=== PATIENT | female | born 1970 | race Asian ===

== ENCOUNTER → 2017-10-11 20:56 | Outpatient (CLI) | payer MEDICARE, MEDICAID, SELFPAY | PROVIDERS: Family Provider Family Medicine Geriatric Medicine; PCP Family Medicine Geriatric Medicine; Visit Provider Family Medicine Geriatric Medicine | DX: R19.7 Diarrhea, unspecified (principal) | CPT/HCPCS: 87493 ==

== ENCOUNTER 2017-10-18 07:49 | Day surgery (SDC) | payer MEDICARE, MEDICAID, SELFPAY ==
[2017-09-27 13:06] VITALS: BMI 26.1
[2017-09-28 14:15] VITALS: BP 120/60
[2017-10-01 08:00] VITALS: BP 149/92
[2017-10-03 14:49] VITALS: BP 105/69
[2017-10-18 08:10] VITALS: BP 121/79; PULSE 87; RESP 18; TEMP 36.7; O2SAT 100; BMI 25.2
[2017-10-18 08:11] LABS: Internal QC Validated? YES +Cl - CLEAR BKGD
[2017-10-18 08:14] LABS: Pregnancy, Urine Negative Negative
[2017-10-18 08:31] LABS: Bedside Glucose 110 mg/dL (70-110)
--- NOTE | 2017-10-18 09:20 | RAD_ITS ---
PROCEDURE: Cervical facet joint block. DATE OF EXAMINATION: October 18, 2017. INDICATION: Female, 47 years old. FLUOROSCOPY TIME (if supplied): (0:09) minutes/seconds Intraoperative fluoroscopic imaging provided for left C4-C7 facet joint block. RAD/Cerv Spine 2 or 3 Views IMPRESSION: Intraoperative fluoroscopic imaging provided for left C4-C7 facet joint block. Electronically Signed: Jonathan Garcia MD at 13:02 EST Tel [phone], Service support ,
[2017-10-18] MEDS: Bupivacaine 0.25% 30 ML Vial (09:33)
[2017-10-18] MEDS: MethylPREDNISolone Acetate 80 MG/ML Vial (09:34)
[2017-10-18] MEDS: Bacitracin 500 UNITS/GM PACKET (09:34)
[2017-10-18 09:41] VITALS: BP 109/64; BP 121/79; PULSE 82; RESP 16; TEMP 36.7; O2SAT 98
[2017-10-18 09:45] VITALS: BP 113/73; BP 121/79; PULSE 82; RESP 16; O2SAT 100
[2017-10-18 09:50] VITALS: BP 113/73; BP 121/79; PULSE 85; RESP 16; O2SAT 100
[2017-10-18 09:55] VITALS: BP 104/59; BP 121/79; PULSE 85; RESP 16; TEMP 36.2; O2SAT 100
[2017-10-18 10:12] VITALS: BP 121/79
--- NOTE | 2017-10-18 12:42 | OP.PCM_ITS ---
Problem List (1) Cervical spondylosis Status: Chronic (2) Degenerative disc disease, cervical Status: Chronic Report of Operation Date of Procedure: 10/18/17 Pre-Operative Diagnosis: Cervical spondylosis, cervical degenerative disc disease, cervical facet arthropathy Post-Operative Diagnosis: Cervical spondylosis, cervical degenerative disc disease, cervical facet arthropathy Surgery/Procedure Performed:: Left-sided cervical facet steroid injection C4, C5 , C6, C7 Description of Surgical Findings:: PROCEDURE: Left-sided cervical facet steroid injection C4, C5, C6, C7 PREOPERATIVE DIAGNOSES: Cervical spondylosis, cervical degenerative disc disease, and cervical facet arthropathy POSTOPERATIVE DIAGNOSES: Cervical spondylosis, cervical degenerative disc disease, and cervical facet arthropathy ANESTHESIA: MAC COMPLICATIONS: None BLOOD LOSS: Minimal PROCEDURE IN DETAIL: History and physical today was reviewed. Risks and benefits of the procedure were explained. The patient understood, agreed to our procedure, and informed consent was obtained. IV inserted per routine protocol. The patient was taken to the operating room, placed in a prone position with a pillow positioned underneath the chest. The neck area was prepped and draped in a sterile fashion using iodine x3. Under fluoroscopy guidance, on AP view, C4 through C7 vertebral bodies were visualized. . Under direct visualization with fluoroscopy at approximately 15-degree angle, starting on the left C4, ending on the left C7, passing through the C5-C6 using a 25-gauge 3-1/2 inch spinal needle, the needle was passed through the skin. The tip of the needle was maneuvered and directed towards the apophyseal junction of each corresponding vertebra. Once the tip of the needle was at the vicinity of the medial branch and in contact with the bone, the needle was redirected more lateral towards the medial branch. Once in contact with the medial branch, the stylet of each needle was then removed. After negative aspiration of blood with CSF and confirmation of AP as well as oblique view, a total of 3 mL of preservative- free 0.25% Marcaine with 80 mg Depo-Medrol was injected in divided doses between those 4 levels. The needles were then removed intact. The patient experienced no signs or symptoms of intrathecal, intravascular injection. The patient experienced no paraesthesia. The procedure was completed without any apparent difficulty, any complication. The patient appeared to tolerate well. ASSESSMENT AND PLAN: This is a 47-year-old female with cervical spondylosis, cervical degenerative disc disease, and cervical facet arthropathy, status post left-sided cervical facet steroid injection C4 through C7. The patient will continue her current medications. The patient will follow up in approximately 2 weeks fo reevaluation.
== END 2017-10-18 10:31 | disposition home or self-care (01) ==
LOC: SDC 07:50 → AC 07:51
PROVIDERS: Anesthesiology; Family Provider Family Medicine Geriatric Medicine; PCP Family Medicine Geriatric Medicine; Visit Provider Anesthesiology Pain Medicine
PROC: 3E0S3BZ Introduction of Anesthetic Agent into Epidural Space, Percutaneous Approach (ICD-10-PCS; CPT 62320; principal; 2017-10-18 09:15)
DX: M47.812 Spondylosis without myelopathy or radiculopathy, cervical region (principal); M50.30 Other cervical disc degeneration, unspecified cervical region; M51.36 Other intervertebral disc degeneration, lumbar region; M32.10 Systemic lupus erythematosus, organ or system involvement unspecified; G89.0 Central pain syndrome; M16.9 Osteoarthritis of hip, unspecified; M19.019 Primary osteoarthritis, unspecified shoulder; M79.7 Fibromyalgia; Z79.891 Long term (current) use of opiate analgesic; N18.6 End stage renal disease; I12.0 Hypertensive chronic kidney disease with stage 5 chronic kidney disease or end stage renal disease; Z99.2 Dependence on renal dialysis; Z79.4 Long term (current) use of insulin
CPT/HCPCS: 64479; 64480 ×3; 64490; 72040; 81025; 82962; J7030; J7120; A4216

== ENCOUNTER → 2017-11-06 14:26 | Outpatient (CLI) | payer MEDICARE, MEDICAID, SELFPAY ==
[2017-11-08 11:24] LABS: HEPATITIS B SURFACE AG Negative (Negative)
== END ==
PROVIDERS: Visit Provider Internal Medicine Nephrology
DX: N18.6 End stage renal disease (principal)
CPT/HCPCS: 87340

== ENCOUNTER → 2017-11-19 10:03 | Outpatient (CLI) | payer MEDICARE, MEDICAID, SELFPAY ==
[2017-11-19 11:45] LABS: D-Dimer Quantitative (DVT/PE) 1.95 FEU/ug/m (0.27-0.49)
[2017-11-20 09:08] LABS: Complement C3 99 mg/dL (82-167)
[2017-11-20 10:52] LABS: Immunoglobulin G 1173 mg/dL (700-1600)
== END ==
PROVIDERS: Family Provider Family Medicine Geriatric Medicine; PCP Family Medicine Geriatric Medicine
DX: M32.14 Glomerular disease in systemic lupus erythematosus (principal)
CPT/HCPCS: 36591; 82784; 85379; 86160; A4216

== ENCOUNTER → 2017-11-30 14:49 | Outpatient (CLI) | payer MEDICARE, MEDICAID, SELFPAY ==
[2017-11-30 15:57] LABS: Absolute Lymphocyte Count 0.76 X10^3/ul (0.83-4.51); Basophil# 0.01 X10^3/uL; Basophil% 0.1 % (0-1); Eosinophil# 0.04 X10^3/uL; Eosinophils% 0.4 % (0-5); Hematocrit 38.6 % (37-47); Lymphocyte # 0.76 X10^3/ul (4.0); Lymphocyte % 8.1 % (19-41); Mean Corp Hgb Conc 31.1 g/gl (32-36); Mean Corpuscular Hgb 31.1 pg (27.0-32.0); Mean Platelet Vol. 10.3 fl (6.2-12.0); Monocyte% 5.3 % (0-10); Neutrophil # 7.98 X10^3/uL (2.7-7.7); Neutrophil % 85.4 % (47-70); Platelet Count 185 K/mm3 (150-450); RBC Distribution Width CV 15.8 % (11.6-14.6); RBC Distribution Width SD 55.5 fl (35.1-43.9); Red Blood Count 3.86 M/mm3 (4.2-5.4); White Blood Count 9.4 K/mm3 (4.4-11.0)
[2017-11-30 15:59] LABS: POSITIVE COUNT NO; POSITIVE DIFFERENTIAL NO; POSITIVE MORPHOLOGY NO
[2017-11-30 16:19] LABS: ALB/GLOB Ratio 0.7 RATIO (0.9-2.4); AST(SGOT) 28 U/L (15-37); Alanine Aminotransfer ALT/SGPT 16 U/L (13-56); Albumin, Serum 3.1 g/dL (3.2-5.0); Alkaline Phosphatase 78 U/L (45-117); Anion Gap 11 (5-15); BUN 67 mg/dL (7-18); BUN/Creat Ratio 10.2 RATIO (10-20); Calcium,Total 8.7 mg/dL (8.5-10.1); Chloride 95 mmol/L (98-107); Creatinine, Serum 6.57 mg/dL (0.55-1.02); EST Glomerular Filtration Rate 7 mL/min (>60); Est Glom Filt Rate - Afr Amer 9 mL/min (>60); Globulin 4.6 g/dL (2.2-4.2); Glucose 170 mg/dL (74-106); Potassium 4.3 mmol/L (3.5-5.1); Protein, Total 7.7 g/dL (6.4-8.2); Sodium Level 133 mmol/L (136-145); Thyroid Stim Hormone (TSH) 1.19 uIU/mL (0.358-3.74)
== END ==
PROVIDERS: Family Provider Family Medicine Geriatric Medicine; PCP Family Medicine Geriatric Medicine; Visit Provider Family Medicine Geriatric Medicine
DX: E11.9 Type 2 diabetes mellitus without complications (principal); I10 Essential (primary) hypertension
CPT/HCPCS: 36415; 80053; 84443; 85025

== ENCOUNTER → 2017-12-09 14:37 | Outpatient (CLI) | payer MEDICARE, MEDICAID, SELFPAY ==
--- NOTE | 2017-12-09 14:39 | VDUE_ITS ---
Version 2 Reason For Study: Assess IJV for possible dialysis catheter placement Right Proximal IJV demonstrates normal color flow and doppler signal Prox IJV - .34 x .35 cm Mid IJV - .60 x .69 cm Dist IJV - .86 x .91 cm Subclavian demonstrates normal color flow and doppler signal and and measures 1.3 x 1.3 cm. < Interpretation Summary Patent and compressible right internal jugular vein. Normal flow right subclavian vein Occluded left forearm AV graft Patent left forearm cephalic vein--occluded in the upper arm Patent and generous diameter left upper arm basilic vein.. Ordering Physician: Rigo Valverde Referring Physician: Rigo Valverde Performed By: Abigail Ventura RVT
--- NOTE | 2017-12-09 14:39 | VDUE_ITS ---
Reason For Study: Complications of access device Left Arm Left Cephalic Vein at the wrist measures .27 x .30 cm. Left Cephalic Vein in the forearm measures .29 x .32 cm. Left Cephalic Vein below antecub measures .36 x .36 cm. Cephalic vein occluded in upper arm. Basilic vein at origin measures .43 x .43 cm. Basilic vein at bicep measures .47 x .45 cm. Basilic vein above antecub measures .40 x .37 cm. Brachial artery - .52 x .53 cm with a velocity of 68.4 cm/s Radial artery - .27 x .27 cm with a velocity of 53.4 cm/s. < Interpretation Summary Occluded left forearm AV graft Occluded left upper arm cephalic vein Compressible left forearm cephalic vein Patent and good diameter left upper arm basilic vein. Ordering Physician: Rigo Valverde Referring Physician: Rigo Valverde Performed By: Abigail Ventura RVT
== END ==
PROVIDERS: Family Provider Family Medicine Geriatric Medicine; PCP Family Medicine Geriatric Medicine; Visit Provider Surgery
DX: I82.612 Acute embolism and thrombosis of superficial veins of left upper extremity (principal); T82.590A Other mechanical complication of surgically created arteriovenous fistula, initial encounter; T82.898A Other specified complication of vascular prosthetic devices, implants and grafts, initial encounter
CPT/HCPCS: 93971

== ENCOUNTER 2017-12-10 09:07 | Day surgery (SDC) | payer MEDICARE, MEDICAID, SELFPAY ==
[2017-12-10] VITALS (11 sets, daily range): BP systolic 107–156; BP diastolic 85–100; PULSE 81–99; RESP 14–18; TEMP 36.3–36.7; O2SAT 96–100; BMI 27.1
[2017-12-10 10:00] LABS: Bedside Glucose 104 mg/dL (70-110)
[2017-12-10 11:17] LABS: Internal QC Validated? YES +Cl - CLEAR BKGD; Pregnancy, Urine Negative Negative
[2017-12-10] MEDS: Cefazolin 2 GM in 0.9% Normal Saline 100 ML IV (12:34)
--- NOTE | 2017-12-10 12:45 | PCM.DC.FIST ---
Discharge Diet: Renal Diet Discharge Activity: May Not Drive, May Not Shower Lifting Restrictions: 5 pounds Keep extremity elevated above heart level: - - Keep arm elevated above the heart level for 3 days. Call your doctor if your incision/area has: Continuous Slow Oozing, Sudden Increased Bleeding - apply pressure and call your doctor., Increased Pain/ Swelling, Increased Redness, Foul Smelling Discharge Call your doctor if you observe: Fever of 101 or Higher Suture Line Care: Avoid Pulling/Pushing, Avoid Pinching/Bending Additional Dressing/Incision Instructions:: Please elevate your left arm for comfort. Exercise the left hand with a stress ball to mature the fistula. Keep the right chest catheters clean and dry Allergies/Adverse Reactions: Allergies LONG Inhibitors Allergy (Verified 12/09/17 09:23) Angioedema lisinopril Allergy (Verified 12/09/17 09:23) Angioedema Sulfa (Sulfonamide Antibiotics) Allergy (Verified 12/09/17 09:23) Rash sulfamethoxazole [From Bactrim] Allergy (Verified 12/09/17 09:23) Rash trimethoprim [From Bactrim] Allergy (Verified 12/09/17 09:23) Rash Medications to take at Discharge Atorvastatin Calcium [Lipitor] 20 mg PO QHS 10/01/16 Duloxetine Hcl [Cymbalta] 120 mg PO DAILY 10/01/16 Furosemide [Lasix] 40 mg PO BIDLX 10/01/16 Hydroxychloroquine [Plaquenil] 200 mg PO BIDCM 10/01/16 Linagliptin [Tradjenta] 5 mg PO DAILY 10/01/16 Montelukast [Singulair] 10 mg PO QHS 10/01/16 Acyclovir [Zovirax] 400 mg PO TID PRN 10/26/16 Ergocalciferol [Vitamin D] 1.25 cap PO QMONTH 01/21/17 Amlactin Ultra Body Cream 1 applic TOPICAL DAILY PRN 02/17/17 Cevimeline HCl [Evoxac] 30 mg PO TID 02/17/17 Dextroamphetamine/Amphetamine [Adderall Xr 10 mg Capsule] 15 mg PO BID 07/22/17 Estradiol [Estrace] 1 mg PO QHS 09/27/17 Metoprolol Succinate [Toprol Xl] 50 mg PO BID 09/27/17 Pregabalin [Lyrica] 50 mg PO BID 09/27/17 predniSONE tablet 10 mg PO DAILYCM 09/27/17 omeprazole 40 mg capsule,delayed release 40 mg PO QDAY 12/08/17 paroxetine 10 mg tablet 10 mg PO QDAY 12/08/17 Calcium Acetate [Phoslo Gel Cap] 2,001 mg PO TIDCM 12/09/17 Lactobacillus Acidophilus [Acidophilus] 1 each PO TID 12/09/17 Sevelamer Carbonate 2,400 mg PO TID 12/09/17 Triphrocaps 1 mg PO DAILY 12/09/17 Vancomcyin 125 MG/ 5 ML Susp [Vancomycin 125mg/5mL Susp] 125 mg PO Q6 12/09/17 Hydrocodone Bitart/Apap 5-325 [[place] 5MG-325MG] 1 tablet PO Q6H PRN PRN 3 Days #10 tablet 12/10/17 The following prescriptions were given: Hydrocodone Bitart/Apap 5-325 [[place] 5MG-325MG] 1 tablet PO Q6H PRN PRN 3 Days #10 tablet PRN Reason: Pain Primary Care Physician: Mitchell Bowen Chi, MD [Primary Care Provider] - Please Follow Up With: Rigo Valverde MD - [phone] When: Call to make an appointment for surgical follow up in 10 days
--- NOTE | 2017-12-10 12:48 | DCINST_ITS ---
Discharge Diet: Renal Diet Discharge Activity: May Not Drive, May Not Shower Lifting Restrictions: 5 pounds Keep extremity elevated above heart level: - - Keep arm elevated above the heart level for 3 days. Call your doctor if your incision/area has: Continuous Slow Oozing, Sudden Increased Bleeding - apply pressure and call your doctor., Increased Pain/ Swelling, Increased Redness, Foul Smelling Discharge Call your doctor if you observe: Fever of 101 or Higher Suture Line Care: Avoid Pulling/Pushing, Avoid Pinching/Bending Additional Dressing/Incision Instructions:: Please elevate your left arm for comfort. Exercise the left hand with a stress ball to mature the fistula. Keep the right chest catheters clean and dry Allergies/Adverse Reactions: Allergies LONG Inhibitors Allergy (Verified 12/09/17 09:23) Angioedema lisinopril Allergy (Verified 12/09/17 09:23) Angioedema Sulfa (Sulfonamide Antibiotics) Allergy (Verified 12/09/17 09:23) Rash sulfamethoxazole [From Bactrim] Allergy (Verified 12/09/17 09:23) Rash trimethoprim [From Bactrim] Allergy (Verified 12/09/17 09:23) Rash Medications to take at Discharge Atorvastatin Calcium [Lipitor] 20 mg PO QHS 10/01/16 Duloxetine Hcl [Cymbalta] 120 mg PO DAILY 10/01/16 Furosemide [Lasix] 40 mg PO BIDLX 10/01/16 Hydroxychloroquine [Plaquenil] 200 mg PO BIDCM 10/01/16 Linagliptin [Tradjenta] 5 mg PO DAILY 10/01/16 Montelukast [Singulair] 10 mg PO QHS 10/01/16 Acyclovir [Zovirax] 400 mg PO TID PRN 10/26/16 Ergocalciferol [Vitamin D] 1.25 cap PO QMONTH 01/21/17 Amlactin Ultra Body Cream 1 applic TOPICAL DAILY PRN 02/17/17 Cevimeline HCl [Evoxac] 30 mg PO TID 02/17/17 Dextroamphetamine/Amphetamine [Adderall Xr 10 mg Capsule] 15 mg PO BID 07/22/17 Estradiol [Estrace] 1 mg PO QHS 09/27/17 Metoprolol Succinate [Toprol Xl] 50 mg PO BID 09/27/17 Pregabalin [Lyrica] 50 mg PO BID 09/27/17 predniSONE tablet 10 mg PO DAILYCM 09/27/17 omeprazole 40 mg capsule,delayed release 40 mg PO QDAY 12/08/17 paroxetine 10 mg tablet 10 mg PO QDAY 12/08/17 Calcium Acetate [Phoslo Gel Cap] 2,001 mg PO TIDCM 12/09/17 Lactobacillus Acidophilus [Acidophilus] 1 each PO TID 12/09/17 Sevelamer Carbonate 2,400 mg PO TID 12/09/17 Triphrocaps 1 mg PO DAILY 12/09/17 Vancomcyin 125 MG/ 5 ML Susp [Vancomycin 125mg/5mL Susp] 125 mg PO Q6 12/09/17 Hydrocodone Bitart/Apap 5-325 [[place] 5MG-325MG] 1 tablet PO Q6H PRN PRN 3 Days # 10 tablet 12/10/17 The following prescriptions were given: Hydrocodone Bitart/Apap 5-325 [[place] 5MG-325MG] 1 tablet PO Q6H PRN PRN 3 Days # 10 tablet PRN Reason: Pain Primary Care Physician: Mitchell Bowen Chi, MD [Primary Care Provider] - Please Follow Up With: Rigo Valverde MD - [phone] When: Call to make an appointment for surgical follow up in 10 days
[2017-12-10] MEDS: Bupivacaine 0.25% 30 ML Vial (13:45)
--- NOTE | 2017-12-10 16:14 | PCM.OPRPT ---
Problem List (1) Problem with dialysis access Status: Acute Qualifiers: Encounter type: initial encounter Qualified Code(s): T82.898A - Other specified complication of vascular prosthetic devices, implants and grafts, initial encounter Report of Operation Date of Procedure: 12/10/17 Pre-Operative Diagnosis: Difficulties with dialysis access/thrombosed left forearm radial to antecubital PTFE AV graft Post-Operative Diagnosis: Same Surgery/Procedure Performed:: Right external jugular tunneled 19 cm pre-curved palindrome dialysis catheter placement. Transposition left upper arm basilic vein to brachial artery arteriovenous fistula creation Description of Surgical Findings:: Timeout and informed consent was obtained. 47-year-old female was taken to the operating. She underwent monitored anesthesia care local anesthetic. Ancef 2 g given intravenous preoperatively. The right neck and chest were sterilely prepped and draped. Ultrasound was used to identify the right internal jugular vein which was extraordinarily diminutive in size. The preoperative duplex imaging suggested patency however in actuality this vein was very diminutive. I did attempt access with using 0.5% lidocaine and then a micropuncture needle. I could not get the micropuncture wire to advance. Further inspection of the neck revealed that the external jugular vein appear to be patent. I then utilized 0.5% a cane as a local. I used ultrasound to guide a micropuncture needle into the vein. Micropuncture wire. Micropuncture sheath. I then instilled local down upon the chest wall. I tunneled the 19 cm pre-curved palindrome catheter from the chest to the neck. I placed a J-wire through the micropuncture sheath. Serial dilatation was performed. Sheath dilator was inserted. The dilator and wire removed. The catheter was advanced through the sheath. The sheath was split. The catheter was in good position based upon fluoroscopy. The neck site was closed with interrupted 4-0 Vicryl subdermal stitch. The catheter was secured skin with interrupted 3-0 nylon. A silver impregnated dressing was applied followed by Telfa. Telfa OpSite was placed in the neck. Attention was now drawn to the left extremity which was sterilely prepped and draped. It is of note that throughout both procedures a total 24 cc of 0.5% lidocaine and 25 cc of 1% lidocaine mixed 50-50 with a 0.25% Marcaine was used as local anesthetic. Ultrasound was used to identify the left upper extremity basilic vein. Then a longitudinal incision was made in the left medial upper arm tedious sharp and blunt dissection was used to dissect free the basilic vein. Side branches were secured with 4-0 Vicryl ligatures and hemoclips. The vein was completely freed it was irrigated was noted to be of nice diameter. It was measured the length and a curvilinear pattern was selected. The brachial artery was then dissected free. A tunneler was placed the vein was ligated distally with hemoclips at a spatulation point. The vein was then placed beneath the tunnel taking great care to assure no curvature. It irrigated was nicely patent. The patient received 7000 units of heparin. Peripheral vascular clamps were placed on the brachial artery and 11 blade was used to make an arteriotomy extended with Ahmadi scissors. A end-to-side anastomosis was created with a running 7-0 Prolene. At the completion there is good flow. Inspection of the hand however was of concern and that was markedly diminished Doppler signal of the radial artery. The fistula appeared to have an extraordinarily high flow. So then I used a centimeter by 1 cm wide piece of bovine pericardium graft. I shortened the width to about 6 mm. I used that as a cuff at the proximal portion of the fistula. Using interrupted sutures of 6-0 Prolene I then serially snugged the cuff until I was able to get a Doppler signal back at the wrist. The hand appeared to have now adequate capillary refill. The fascia also appeared to have good flow remaining. The wound was closed with interrupted 3-0 Vicryl subdermal stitches and a running septic or 4 Monocryl. Steri-Strips Telfa soft roll Juan wrap applied. Sponge instrument and needle counts were reported to the surgeon to be correct. Blood loss for both procedures was 300 cc. She tolerated procedure well was taken to recovery in satisfactory condition no apparent complication stat portable chest x-ray is pending. Rigo Valverde M.D., F.A.C.S. Type of Anesthesia:: Local MAC Anesthesiologist: Alexys Ramirez
--- NOTE | 2017-12-10 16:30 | RAD_ITS ---
STUDY: X-RAY CHEST REASON FOR EXAM: Female, 47 years old. Insertion of hemodialysis catheter. TECHNIQUE: Single AP portable view of the chest. COMPARISON: Prior chest radiograph of September 27, 2017 FINDINGS: Right hemodialysis catheter ends in the proximal superior vena cava. A left subclavian central line ends in the distal superior vena cava. The lungs are clear and expanded. Negative for pneumothorax. Negative for pleural effusion. Normal size heart. Normal mediastinum and malroie. Normal visualized pulmonary arteries. Normal visualized aortic arch and descending thoracic aorta. Normal visualized thoracic spine. Normal visualized ribs, clavicles, and shoulders. There is no demonstrated abnormality of the visualized soft tissue structures of the upper abdomen. RAD/Chest 1 View (Portable) IMPRESSION: Right hemodialysis catheter ends in the proximal superior vena cava without complication of line placement. Left subclavian venous catheter ends in the distal superior vena cava. No acute cardiopulmonary findings. Electronically Signed: Jayda Arreguin MD at 16:53 EDT , Service support ,
== END 2017-12-10 17:50 | disposition home or self-care (01) ==
LOC: SDC 09:08 → AC 09:09
PROVIDERS: Anesthesiology; Family Provider Family Medicine Geriatric Medicine; PCP Family Medicine Geriatric Medicine; Visit Provider Surgery
PROC: (CPT 36558; principal; 2017-12-10 11:45)
PROC: (CPT 36558; 2017-12-10 11:45)
DX: T82.898A Other specified complication of vascular prosthetic devices, implants and grafts, initial encounter (principal); N18.5 Chronic kidney disease, stage 5; I12.0 Hypertensive chronic kidney disease with stage 5 chronic kidney disease or end stage renal disease; K21.9 Gastro-esophageal reflux disease without esophagitis; E78.00 Pure hypercholesterolemia, unspecified; E11.9 Type 2 diabetes mellitus without complications; F32.9 Major depressive disorder, single episode, unspecified; F41.9 Anxiety disorder, unspecified
CPT/HCPCS: 36558; 36901; 71045; 76000; 81025; 82962; J7120; A4216; C1750; C1769; J2405

== ENCOUNTER → 2018-01-25 10:02 | Outpatient (CLI) | payer MEDICARE, MEDICAID, SELFPAY ==
--- NOTE | 2018-01-25 10:04 | ECHOD_ITS ---
Reason For Study: CAD/ASHD Procedure This was a 2D Doppler, Color Flow transthoracic echocardiogram. Exam performed in department. Left Ventricle Moderate concentric left ventricular hypertrophy. The estimated ejection fraction is 65 %. Stage 1 diastolic dysfunction. No regional wall motion abnormalities noted. Right Ventricle Normal size and thickness. Normal systolic function. Atria Normal left atrium. Normal right atrium. Normal atrial septum. Mitral Valve The mitral valve is structurally normal. No prolapse or stenosis seen. Tricuspid Valve Normal tricuspid valve. Trivial tricuspid valve insufficiency. Right ventricular systolic pressure estimated to be 31 mmHg. Aortic Valve Trisinus/trileaflet aortic valve. Trivial aortic valve insufficiency. Pulmonic Valve Normal pulmonic valve. Great Vessels Normal aortic root. Normal arch. Normal inferior vena cava. Inferior vena cava collapse with sniff. Pericardium/Pleural No pericardial effusion. MMode/2D Measurements & Calculations LVIDd: 4.4 cm IVSd: 1.9 cm Ao root diam: 3.1 cm LVIDs: 2.5 cm LVPWd: 1.1 cm LA dimension: 3.6 cm RVDd: 3.1 cm FS: 42.8 % LAV(MOD-bp): 37.5 ml LA A4 area: 16.1 cm2 RA A4 area: 11.7 cm2 LAV(MOD-bp) Indexed: 21.7 ml/m2 LAV(MOD-sp2): 34.7 ml LAV(MOD-sp4): 41.0 ml Time Measurements MV dec time: 0.17 sec Doppler Measurements & Calculations MV E max ortiz: 75.1 cm/sec Lat Peak E' Ortiz: 11.7 cm/sec Med Peak E' Ortiz: 5.9 cm/sec MV A max ortiz: 86.1 cm/sec E/E' lat: 6.4 E/E' med: 12.7 MV E/A: 0.87 MV V2 max: 103.5 cm/sec MV P1/2t max ortiz: 95.1 cm/sec Ao V2 max: 131.6 cm/sec MV max P.3 mmHg MV P1/2t: 50.8 msec Ao max P.9 mmHg MV V2 mean: 60.3 cm/sec MV dec slope: 547.9 cm/sec2 Ao V2 mean: 88.2 cm/sec MV mean P.7 mmHg MVA(P1/2t): 4.3 cm2 Ao mean P.5 mmHg MV V2 VTI: 19.9 cm Ao V2 VTI: 23.3 cm AI max ortiz: 500.4 cm/sec LV V1 max: 105.3 cm/sec PA V2 max: 97.3 cm/sec AI max P.2 mmHg LV V1 max P.4 mmHg AI dec slope: 458.7 cm/sec2 LV V1 mean P.0 mmHg AI P1/2t: 319.5 msec LV V1 mean: 64.4 cm/sec LV V1 VTI: 18.8 cm TR max ortiz: 255.8 cm/sec TR max P.2 mmHg Interpretation Summary Moderate concentric left ventricular hypertrophy. The estimated ejection fraction is 65 %. Stage 1 diastolic dysfunction. Trivial tricuspid valve insufficiency. Right ventricular systolic pressure estimated to be 31 mmHg. Compared to echo report dated 01/10/2016, LV function has remained the same, and RVSP has improved from 50 to 31 mm Hg. Ordering Physician: Cesar Morales Referring Physician: Cesar Morales Performed By: Bernabe Campos RCS
== END ==
PROVIDERS: Family Provider Family Medicine Geriatric Medicine; PCP Family Medicine Geriatric Medicine; Visit Provider Internal Medicine Cardiovascular Disease
DX: I34.0 Nonrheumatic mitral (valve) insufficiency (principal)
CPT/HCPCS: 93306

== ENCOUNTER → 2018-01-25 15:03 | Outpatient (CLI) | payer MEDICARE, MEDICAID, SELFPAY ==
--- NOTE | 2018-01-25 15:05 | AVDS_ITS ---
LEFT Inflow artery 58.0 cm/s Prox Anast 202 cm/s Prox Graft 764 cm/s Mid Graft 226 cm/s Dist Graft 214 cm/s Outflow 218 cm/s Radial Artery at wrist 80.9 cm/s Ulnar Artery at wrist 49.5 cm/s. Interpretation Summary Volume flow at the anastomosis 1101 cc/min. Volume flow of the proximal graft 1111 cc/min Volume flow in the mid graft 566 cc/min Volume flow in the distal graft 723 cc/min Patent left upper extremity arteriovenous fistula with no focal evidence of clinically significant stenosis Ordering Physician: Anabela Lewis PA-C Performed By: Quan Cazares RVT
--- NOTE | 2018-02-03 12:07 | UEAS ---
Arterial Study - Arterial Study Arterial Study: Left upper extremity duplex fistula examination Findings demonstrate a left upper extremity arteriovenous fistula with patent arterial anastomosis and inflow. As noted on additional documentation volume flow is adequate normal throughout. There are no focal areas of clinically significant stenosis Inflow artery has 58 cm/s flow. The proximal anastomosis 202 cm/s. The proximal graft 764 cm/s. The mid graft 226 cm second. The distal graft 214 cm/s. The outflow graft 218 cm/s. The radial artery at the wrist has 80 cm/s flow in the ulnar artery at the wrist 49 cm/s. Impression Patent left upper extremity arteriovenous hemodialysis fistula iRgo Valverde M.D., F.A.C.S.
--- NOTE | 2018-02-03 12:10 | UEAS_ITS ---
Arterial Study - Arterial Study Arterial Study: Left upper extremity duplex fistula examination Findings demonstrate a left upper extremity arteriovenous fistula with patent arterial anastomosis and inflow. As noted on additional documentation volume flow is adequate normal throughout. There are no focal areas of clinically significant stenosis Inflow artery has 58 cm/s flow. The proximal anastomosis 202 cm/s. The proximal graft 764 cm/s. The mid graft 226 cm second. The distal graft 214 cm/ s. The outflow graft 218 cm/s. The radial artery at the wrist has 80 cm/s flow in the ulnar artery at the wrist 49 cm/s. Impression Patent left upper extremity arteriovenous hemodialysis fistula Rigo Valverde M.D., F.A.C.S.
== END ==
PROVIDERS: Family Provider Family Medicine Geriatric Medicine; PCP Family Medicine Geriatric Medicine; Visit Provider Physician Assistant
DX: T82.898A Other specified complication of vascular prosthetic devices, implants and grafts, initial encounter (principal); I34.0 Nonrheumatic mitral (valve) insufficiency
CPT/HCPCS: 93306; 93990

== ENCOUNTER 2018-02-01 09:32 | Day surgery (SDC) | payer MEDICARE, MEDICAID, SELFPAY ==
[2018-02-01] VITALS (9 sets, daily range): BP systolic 122–129; BP diastolic 8–90; PULSE 88–94; RESP 14–16; TEMP 36.2–36.6; O2SAT 96–98; BMI 26.4
[2018-02-01 10:21] LABS: Bedside Glucose 94 mg/dL (70-110)
[2018-02-01] MEDS: Cefazolin 2 GM in 0.9% Normal Saline 100 ML IV (11:40)
[2018-02-01] MEDS: Bupivacaine Mpf 0.5% 30 ML VIAL (11:46)
[2018-02-01] MEDS: Heparin 10,000 UNITS/10 ML Vial 10000 UNITS (12:10)
--- NOTE | 2018-02-01 12:25 | OP.PCM_ITS ---
Problem List (1) End stage renal disease Status: Chronic Report of Operation Date of Procedure: 02/01/18 Pre-Operative Diagnosis: N18.6 end-stage renal disease Post-Operative Diagnosis: Same Surgery/Procedure Performed:: Right external jugular tunneled 19 cm pre-curved palindrome dialysis catheter placement Type of Anesthesia:: MAC Anesthesiologist: Javi Simon Description of Procedure: 47-year-old female was taken to the operating. She underwent monitored anesthesia care local anesthetic. Ancef 2 g given intravenous preoperatively. The right neck and chest were sterilely prepped and draped. Ultrasound was used to identify the right internal jugular vein which was extraordinarily diminutive in size. The preoperative duplex imaging suggested patency however in actuality this vein was very diminutive. I did attempt access with using 0.5 % lidocaine and then a micropuncture needle. I could not get the micropuncture wire to advance. Further inspection of the neck revealed that the external jugular vein appear to be patent. I then utilized 0.5% a cane as a local. I used ultrasound to guide a micropuncture needle into the vein. Micropuncture wire. Micropuncture sheath. I then instilled local down upon the chest wall. I tunneled the 19 cm pre-curved palindrome catheter from the chest to the neck. I placed a J-wire through the micropuncture sheath. Serial dilatation was performed. Sheath dilator was inserted. The dilator and wire removed. The catheter was advanced through the sheath. The sheath was split. The catheter was in good position based upon fluoroscopy. The neck site was closed with interrupted 4-0 Vicryl subdermal stitch. The catheter was secured skin with interrupted 3-0 nylon. A silver impregnated dressing was applied followed by Telfa. Telfa OpSite was placed in the neck. - Admit VTE Documentation VTE Present on Admission: No VTE Mechan Device Prophylaxis: SCD's VTE Pharm Prophylaxis ordered?: No Reason prophylaxis not ordered:: Treatment Not Indicated
--- NOTE | 2018-02-01 12:31 | RAD_ITS ---
STUDY: X-RAY CHEST REASON FOR EXAM: Female, 47 years old. Hemodialysis catheter insertion. TECHNIQUE: Single AP portable view of the chest. COMPARISON: Comparison is made with prior study dated December 10, 2017. FINDINGS: A right-sided double-lumen catheter is seen with the tip in the midportion of the superior vena cava. A left-sided portacatheter is seen with the tip at the junction of the superior vena cava and right atrium. EKG electrodes are seen. The lungs are clear and expanded. There is no demonstrated pleural abnormality. Normal size heart. Normal mediastinum and malorie. Normal visualized pulmonary arteries. Normal visualized aortic arch and descending thoracic aorta. Normal visualized thoracic spine. Normal visualized ribs, clavicles, and shoulders. There is no demonstrated abnormality of the visualized soft tissue structures of the upper abdomen. RAD/CXR for Line Placement IMPRESSION: The tip of the right double-lumen catheter is in the midportion of the superior vena cava. Electronically Signed: Jonathan Garcia MD at 14:31 EDT Tel [phone], Service support ,
--- NOTE | 2018-02-01 12:31 | PCM.DC.POR ---
Discharge Diet: No Restrictions - Pain medication may cause nausea. You should typically eat light foods as you take your pain medication. Discharge Activity: May Shower - with the bandage in place 1-2 days after surgery. DO NOT SHOWER WHEN YOUR PORT IS ACCESSED. Additional Activity Instructions:: May not drive, work with heavy equipment, or sign legal documents for [address] if you are no longer taking narcotic pain medications. You may drive when you are no longer taking pain medications. Additional Dressing/Incision Instructions:: Leave the bandage on for 2-3 days. When you remove the bandage, leave the steri-strips intact until they fall off. Allergies/Adverse Reactions: Allergies LONG Inhibitors Allergy (Verified 01/31/18 14:13) Angioedema lisinopril Allergy (Verified 01/31/18 14:13) Angioedema Sulfa (Sulfonamide Antibiotics) Allergy (Verified 01/31/18 14:13) Rash sulfamethoxazole [From Bactrim] Allergy (Verified 01/31/18 14:13) Rash trimethoprim [From Bactrim] Allergy (Verified 01/31/18 14:13) Rash Medications to take at Discharge Duloxetine Hcl [Cymbalta] 120 mg PO DAILY 10/01/16 Hydroxychloroquine [Plaquenil] 200 mg PO BIDCM 10/01/16 Linagliptin [Tradjenta] 5 mg PO DAILY 10/01/16 Montelukast [Singulair] 10 mg PO QHS 10/01/16 Acyclovir [Zovirax] 400 mg PO TID PRN 10/26/16 Ergocalciferol [Vitamin D] 1.25 cap PO QMONTH 01/21/17 Amlactin Ultra Body Cream 1 applic TOPICAL DAILY PRN 02/17/17 Cevimeline HCl [Evoxac] 30 mg PO TID 02/17/17 Dextroamphetamine/Amphetamine [Adderall Xr 10 mg Capsule] 15 mg PO BID 07/22/17 Estradiol [Estrace] 1 mg PO QHS 09/27/17 omeprazole 40 mg capsule,delayed release 40 mg PO QDAY 12/08/17 paroxetine 10 mg tablet 10 mg PO QDAY 12/08/17 Sevelamer Carbonate 2,400 mg PO TID 12/09/17 furosemide 40 mg tablet 40 mg PO BID tab 01/11/18 metoprolol tartrate 25 mg tablet 25 mg PO BID 01/11/18 prednisone 10 mg tablet 5 mg PO DAILYCM tab 01/11/18 Acetaminophen [Tylenol Extra Strength] 500 tablet BID PRN PRN MDD 1000 01/20/18 Atorvastatin Calcium [Lipitor] 20 mg PO QHS 01/20/18 Baclofen [Lioresal] 10 mg PO TID 01/20/18 Lorazepam [Ativan] 1 mg PO BID 01/20/18 Ondansetron HCl [Zofran] 4 mg PO PRN PRN 01/20/18 Pregabalin [Lyrica] 50 mg PO BID 01/20/18 Primary Care Physician: Mitchell Bowen Chi, MD [Primary Care Provider] - Please Follow Up With: Cesar Sheth MD - [phone] When: Please plan to follow up in 7 days in the office.
[2018-02-01 12:46] LABS: Bedside Glucose 77 mg/dL (70-110)
== END 2018-02-01 14:23 | disposition home or self-care (01) ==
LOC: SDC 09:33 → AC 09:33
PROVIDERS: Family Provider Family Medicine Geriatric Medicine; PCP Family Medicine Geriatric Medicine; Visit Provider Surgery
DX: N18.6 End stage renal disease (principal); I12.0 Hypertensive chronic kidney disease with stage 5 chronic kidney disease or end stage renal disease; K21.9 Gastro-esophageal reflux disease without esophagitis; E78.00 Pure hypercholesterolemia, unspecified; E11.9 Type 2 diabetes mellitus without complications; M32.14 Glomerular disease in systemic lupus erythematosus; D64.9 Anemia, unspecified
CPT/HCPCS: 36561; 71045; 76000; 82962; J7040; A4216; C1750; C1769; J3490

== ENCOUNTER → 2018-02-17 12:32 | Outpatient (CLI) | payer MEDICARE, MEDICAID, SELFPAY ==
--- NOTE | 2018-02-17 08:36 | STE_ITS ---
Reason For Study: Pre-Op Stress Results Protocol: Ross Protocol Maximum Predicted HR: 175 bpm Target HR: 149 bpm% Max imum Predicted HR: 79 % DurationHeart Rate Stage (mm:ss) (bpm) BPCom ment Baseline 90 132/84 Ross Protocol Stage I 3:00 12 3 126/86 Ross Protocol Stage II 3:00 13 9 140/82Hip/Knee Pain, SOB Recovery 98 146/84 Stress Duration: 6:00 mm:ss Maximum Stress HR: 139 bpmM ETS: 7 Baseline Echocardiogram Findings The estimated ejection fraction is 65 %. Stress Echo Wall motion Data Resting WMIntermediate WMStress WM Resting Wall Motion Wall Motion Stress Ejection Fraction 65 %. Ejection Fraction 75 %. EKG Data Normal Sinus Rhythm. Normal Sinus Rhythm; No Acute Changes. Symptoms with Stress No Angina With Stress. Interpretation Summary 1) Adequate Stress Echocardiogram; Negative For Ischemia By EKG and Echo Criteria 2) No Anginal Symptoms 3) No Arrhythmias Noted 4) HTN BP Response To Exercise 5) Average Exercise Capacity For Age 6) Final LVEF 75%. The estimated ejection fraction is 65 %. Normal, adequate, treadmill echocardiogram. Negative for ischemia by EKG and echocardiographic criteria. Patient achieved adequate stress test with rate pressure product. No anginal symptoms noted. No arrhythmias noted. Appropriate blood pressure response to exercise. Test terminated due to hip and knee pain and shortness of breath. Final LVEF is 75%. No complications. Ordering Physician: Cesar Morales Referring Physician: Cesar Morales Performed By: Bernabe Campos RCS
--- NOTE | 2018-02-17 12:32 | DT_ITS ---
This patient was seen during an EMR downtime February 14, 2018 - February 21, 2018. This patient may have a combination of paper and electronic documentation or all paper documentation. All documentation is viewable within the e-chart portion of [facility] for each patient visit.
== END ==
PROVIDERS: Family Provider Family Medicine Geriatric Medicine; PCP Family Medicine Geriatric Medicine; Visit Provider Internal Medicine Cardiovascular Disease
DX: Z01.810 Encounter for preprocedural cardiovascular examination (principal); I27.21 Secondary pulmonary arterial hypertension; I34.0 Nonrheumatic mitral (valve) insufficiency; I36.1 Nonrheumatic tricuspid (valve) insufficiency
CPT/HCPCS: 93017; 93350

== ENCOUNTER → 2018-03-01 15:16 | Outpatient (CLI) | payer MEDICARE, MEDICAID, SELFPAY ==
--- NOTE | 2018-03-01 15:18 | RAD_ITS ---
STUDY: X-RAY - LEFT ELBOW REASON FOR EXAM: Female, 47 years old. Pain in the forearm. Injury several weeks ago. History of fistula surgery with graft. TECHNIQUE: 3 view(s) of the elbow. COMPARISON: None. FINDINGS: Alignment is normal. Transverse minimally displaced radial neck fracture. No other fractures identified. Surgical clips in the soft tissue of the distal upper arm and proximal forearm. RAD/Elbow min 3 Views IMPRESSION: Minimally displaced radial neck fracture. N.B. : Cyn Noland MA, Renetta, confirmed on 03/02/2018 13:35:31 (ET) that the referring physician received the results and did not require a verbal consultation. Electronically Signed: Lupillo Jennings MD at 8:06 EDT , Service support , N.B. : Cyn Noland MA, Renetta, confirmed on 03/02/2018 13:35:31 (ET) that the referring physician received the results and did not require a verbal consultation.
--- NOTE | 2018-03-01 15:18 | RAD_ITS ---
STUDY: X-RAY - LEFT RADIUS AND ULNA REASON FOR EXAM: Female, 47 years old. Pain in forearm. Injury several weeks ago. TECHNIQUE: 2 view(s) of the forearm. COMPARISON: None. FINDINGS: There is no demonstrated soft tissue swelling. Alignment is normal. Minimally displaced transverse radial neck fracture. Ulna is normal. Surgical clips in the medial soft tissue of the distal upper arm and the lateral soft tissues of the proximal forearm, as well as volar soft tissue at the level of the distal radius. RAD/Forearm 2 Views IMPRESSION: Minimally displaced radial neck fracture. Electronically Signed: Lupillo Jennings MD at 8:09 EDT , Service support ,
--- NOTE | 2018-03-01 15:18 | RAD_ITS ---
STUDY: X-RAY - LEFT HAND REASON FOR EXAM: Female, 47 years old. Pain in forearm. Injury several weeks ago. TECHNIQUE: 3 view(s) of the hand. COMPARISON: None. FINDINGS: Normal radiocarpal articulation. Normal distal radioulnar joint. Normal visualized carpal bones. Normal carpal articulations Normal carpometacarpal articulation of the thumb. Normal second through fifth carpometacarpal joints. Normal metacarpi. Normal metacarpophalangeal joint of the thumb. Normal interphalangeal joint of the thumb. Normal proximal and distal phalanges of the thumb. Normal metacarpophalangeal joints of the second through fifth fingers. Normal proximal and distal interphalangeal joints of the second through fifth fingers. Normal phalanges of the second through fifth fingers. Soft tissue swelling dorsum hand. Surgical clips volar aspect of the distal forearm RAD/Hand Min 3 Views IMPRESSION: Soft tissue swelling dorsum of hand. Electronically Signed: Lupillo Jennings MD at 8:10 EDT , Service support ,
--- NOTE | 2018-03-01 15:18 | RAD_ITS ---
STUDY: X-RAY - LEFT WRIST REASON FOR EXAM: Female, 47 years old. Injury several weeks ago, history of fistula surgery and graft TECHNIQUE: 3 view(s) of the wrist were obtained. COMPARISON: None. FINDINGS: Normal visualized distal radius and ulna. Normal radiocarpal articulation. Normal distal radioulnar articulation. Normal carpal bones. Normal carpal articulations. Normal carpometacarpal articulation of the thumb. Normal second through fifth carpometacarpal articulations. Normal visualized metacarpal bones. Surgical clips are seen in the soft tissues of the anterior lateral wrist. RAD/Wrist min 3 Views IMPRESSION: The osseous structures and articular surfaces of the left wrist appear within normal limits. Electronically Signed: Hector Carranza MD at 16:10 EDT , Service support ,
== END ==
PROVIDERS: Family Provider Family Medicine Geriatric Medicine; PCP Family Medicine Geriatric Medicine; Visit Provider Family Medicine Geriatric Medicine
DX: M79.639 Pain in unspecified forearm (principal); W19.XXXA Unspecified fall, initial encounter
CPT/HCPCS: 73080; 73090; 73110; 73130

== ENCOUNTER → 2018-03-04 09:22 | Outpatient (CLI) | payer MEDICARE, MEDICAID, SELFPAY ==
--- NOTE | 2018-03-04 09:25 | RAD_ITS ---
STUDY: X-RAY - LEFT ELBOW REASON FOR EXAM: Female, 47 years old. Fracture follow-up. TECHNIQUE: 3 view(s) of the elbow. COMPARISON: 03/01/2018. FINDINGS: Continued normal position of all previous radial neck fracture. No displacement or impaction. No angulation. The fracture line is less evident suggestive of interval healing. No other fractures. Normal articulations. Diffuse soft tissue swelling. Numerous surgical clips. RAD/Elbow min 3 Views IMPRESSION: Evidence of interval healing of radial neck fracture, in anatomic alignment and position. Electronically Signed: Dariel Aguilar MD at 20:11 EDT , Service support ,
== END ==
PROVIDERS: Family Provider Family Medicine Geriatric Medicine; PCP Family Medicine Geriatric Medicine; Visit Provider Orthopaedic Surgery
DX: M25.522 Pain in left elbow (principal)
CPT/HCPCS: 73080

== ENCOUNTER → 2018-03-17 09:19 | Day surgery (SDC) | payer MEDICARE, MEDICAID, SELFPAY ==
[2018-03-15 08:16] VITALS: BMI 25.4
[2018-03-17 09:48] LABS: Hematocrit 37.5 % (37-47); Mean Corpuscular Hgb 32.3 pg (27.0-32.0); Mean Corpuscular Volume 101.1 fL (81-99); Mean Platelet Vol. 9.5 fl (6.2-12.0); Platelet Count 174 K/mm3 (150-450); RBC Distribution Width CV 16.5 % (11.6-14.6); RBC Distribution Width SD 57.4 fl (35.1-43.9); Red Blood Count 3.71 M/mm3 (4.2-5.4); White Blood Count 7.5 K/mm3 (4.4-11.0)
[2018-03-17 09:50] LABS: Scan Indicated on CBC? Y/N NO
[2018-03-17 09:54] LABS: Anion Gap 8 (5-15); BUN 46 mg/dL (7-18); BUN/Creat Ratio 7.6 RATIO (10-20); Chloride 102 mmol/L (98-107); Creatinine, Serum 6.02 mg/dL (0.55-1.02); EST Glomerular Filtration Rate 8 mL/min (>60); Est Glom Filt Rate - Afr Amer 10 mL/min (>60); Estimated Creatinine Clearance 10.19 ml/min; Glucose 74 mg/dL (74-106); Potassium 4.3 mmol/L (3.5-5.1); Sodium Level 139 mmol/L (136-145)
[2018-03-17 10:01] LABS: Bedside Glucose 70 mg/dL (70-110)
--- NOTE | 2018-03-17 11:39 | OP.PCM_ITS ---
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 47-year-old female was taken to the special procedures lab. She was placed on the table. 50 mcg of fentanyl 1 mg Versed were given as intravenous sedation. The left extremity sterilely prepped draped. Ultrasound was used to identify the basilic vein closer to the radial arterial anastomosis. Under ultrasound guidance 2% lidocaine was instilled. Micropuncture needle was inserted. 6 Vincentian short sheath dilator inserted. A hand-injection view demonstrated adequate venous size of the transposed basilic vein in the upper arm. However there is evidence significant venous return in the upper arm. On the next set of films there is evidence of a left subclavian port with now seemingly complete occlusion of flow around the port tubing centrally. This is distinctly different from a previous fistulogram that had been obtained. I used to 4 Vincentian angled glide catheter and 035 angled Glidewire and then I tried an 035 stiff angled Glidewire although I could engage the subclavian vein at the tubing site I could not get the wire to advance. This point I aborted attempts. Pulled the sheath placed a U suture of 4-0 nylon. Impression complete occlusion of the subclavian vein around port catheter tubing. Otherwise patent left upper extremity transposed basilic vein to brachial artery AV fistula. I will recommend tertiary referral for possible central venous intervention. Patient may need to have the port tubing sacrificed. I will defer this to tertiary consultation and treatment. She will likely need to have ongoing dialysis access management performed at the tertiary center as well because of the complexity of this issue. Cc: Dr. Arline Valverde M.D., F.A.C.S. Type of Anesthesia:: IV Sedation
== END ==
PROVIDERS: Family Provider Family Medicine Geriatric Medicine; PCP Family Medicine Geriatric Medicine; Visit Provider Surgery
DX: I87.1 Compression of vein (principal); T82.898A Other specified complication of vascular prosthetic devices, implants and grafts, initial encounter; E11.9 Type 2 diabetes mellitus without complications; D64.9 Anemia, unspecified; M32.9 Systemic lupus erythematosus, unspecified; N18.6 End stage renal disease; I12.0 Hypertensive chronic kidney disease with stage 5 chronic kidney disease or end stage renal disease
CPT/HCPCS: 36901; 76937; 80048; 82962; 85027; 99152; 99153; Q9967; C1769

== ENCOUNTER → 2018-05-12 17:57 | Outpatient (CLI) | payer MEDICARE, MEDICAID, SELFPAY | PROVIDERS: Family Provider Family Medicine Geriatric Medicine; PCP Family Medicine Geriatric Medicine; Visit Provider Obstetrics & Gynecology | DX: R35.0 Frequency of micturition (principal) | CPT/HCPCS: 87086 ==

== ENCOUNTER 2018-05-19 08:36 | Day surgery (SDC) | payer MEDICARE, MEDICAID, SELFPAY ==
--- NOTE | 2018-05-18 15:59 | EKG12_ITS ---
Test Reason : PRE OP Blood Pressure : / mmHG Vent. Rate : 097 BPM Atrial Rate : 097 BPM P-R Int : 148 ms QRS Dur : 086 ms QT Int : 382 ms P-R-T Axes : 050 039 079 degrees QTc Int : 485 ms AGE AND GENDER SPECIFIC ECG ANALYSIS Normal sinus rhythm ST elevation consider inferior injury or acute infarct Prolonged QT Abnormal ECG Confirmed by RENAE ROBERTS ([id number]), film editor CESAR SIMEON ([id number]) on 05/24/2018 1:36:42 PM Referred By: Desirae Minaya Confirmed By:RENAE ROBERTS
[2018-05-18 17:07] LABS: Hematocrit 38.6 % (37-47); Hemoglobin 11.9 g/dl (12.0-15.0); Mean Corp Hgb Conc 30.8 g/gl (32-36); Mean Corpuscular Hgb 30.4 pg (27.0-32.0); Mean Corpuscular Volume 98.5 fL (81-99); Mean Platelet Vol. 10.6 fl (6.2-12.0); Platelet Count 167 K/mm3 (150-450); RBC Distribution Width CV 15.7 % (11.6-14.6); RBC Distribution Width SD 56.8 fl (35.1-43.9); Red Blood Count 3.92 M/mm3 (4.2-5.4); White Blood Count 8.8 K/mm3 (4.4-11.0)
--- NOTE | 2018-05-18 17:25 | PCM.HP.STD ---
Problem List (1) Postmenopausal bleeding Status: Acute History of Present Illness Date of Admission: 05/19/18 Chief Complaint: abnormal vaginal bleeding The patient is a 47 year old F presents with irregular vaginal bleeding- previously postmenopausal. she has been on estrogen and progesterone HRT but she stopped taking the progesterone for a while, and then now has still been taking estrogen. she has had trouble scheduling surgery due to chronic kidney disease. Past Medical History Past Medical History (Chronic Problems): Chronic Problems (Last Reviewed 05/12/18 @ 15:51 by Debora Sepulveda) Nonrheumatic mitral (valve) insufficiency (Chronic) Secondary pulmonary arterial hypertension (Chronic) Non-rheumatic tricuspid valve insufficiency (Chronic) End stage renal disease (Chronic) Chronic anemia (Chronic) Hypertension (Chronic) Narcolepsy (Chronic) Lupus nephritis (Chronic) Status post kidney and liver biopsy (fatty liver) Degenerative disc disease, cervical (Chronic) Cervical spondylosis (Chronic) Diabetes mellitus, type II (Chronic) SLE (systemic lupus erythematosus) (Chronic) Medical History: Medical History (Last Reviewed 05/12/18 @ 15:51 by Debora Sepulveda) Nonrheumatic mitral (valve) insufficiency (Chronic) I34.0 Secondary pulmonary arterial hypertension (Chronic) I27.21 Non-rheumatic tricuspid valve insufficiency (Chronic) I36.1 End stage renal disease (Chronic) N18.6 Problem with dialysis access (Acute) T82.898A Chronic anemia (Chronic) D64.9 Hypertension (Chronic) I10 Narcolepsy (Chronic) G47.419 Lupus nephritis (Chronic) M32.14 Status post kidney and liver biopsy (fatty liver) Degenerative disc disease, cervical (Chronic) M50.30 Cervical spondylosis (Chronic) M47.812 Colitis (Acute) Leukopenia (Acute) D72.819 Diabetes mellitus, type II (Chronic) E11.9 SLE (systemic lupus erythematosus) (Chronic) M32.9 Status post left heart catheterization Z98.890 Acute renal failure (Resolved) Chronic kidney disease (Resolved) N18.9 Dehydration with hyponatremia (Resolved) E87.1 Hyperkalemia (Resolved) E87.5 Unresponsiveness (Resolved) R41.89 Allergies LNOG Inhibitors Allergy (Verified 05/12/18 15:42) Angioedema lisinopril Allergy (Verified 05/12/18 15:42) Angioedema Sulfa (Sulfonamide Antibiotics) Allergy (Verified 05/12/18 15:42) Rash sulfamethoxazole [From Bactrim] Allergy (Verified 05/12/18 15:42) Rash trimethoprim [From Bactrim] Allergy (Verified 05/12/18 15:42) Rash Home Medications: Ambulatory Orders Medication Instructions Recorded Duloxetine Hcl [Cymbalta] 120 mg PO DAILY 10/01/16 Hydroxychloroquine [Plaquenil] 200 mg PO BIDCM 10/01/16 Linagliptin [Tradjenta] 5 mg PO DAILY 10/01/16 Montelukast [Singulair] 10 mg PO QHS 10/01/16 Acyclovir [Zovirax] 400 mg PO TID PRN 10/26/16 Ergocalciferol [Vitamin D] 1.25 cap PO QMONTH 01/21/17 Amlactin Ultra Body Cream 1 applic TOPICAL DAILY PRN 02/17/17 Cevimeline HCl [Evoxac] 30 mg PO TID 02/17/17 Estradiol [Estrace] 1 mg PO QHS 09/27/17 Sevelamer Carbonate 2,400 mg PO TID 12/09/17 metoprolol tartrate 25 mg tablet 25 mg PO BID 01/11/18 prednisone 10 mg tablet 5 mg PO DAILYCM tab 01/11/18 Acetaminophen [Tylenol Extra 500 tab BID PRN PRN MDD 1000 01/20/18 Strength] Atorvastatin Calcium [Lipitor] 20 mg PO QHS 01/20/18 Baclofen [Lioresal] 10 mg PO TID 01/20/18 Lorazepam [Ativan] 1 mg PO BID 01/20/18 Ondansetron HCl [Zofran] 4 mg PO PRN PRN 01/20/18 Pregabalin [Lyrica] 50 mg PO BID 01/20/18 calcitriol 0.25 mcg capsule 0.25 mcg PO ONCE 05/12/18 ciprofloxacin 500 mg tablet 500 mg PO DAILY #3 tab 05/12/18 clindamycin 1 %-benzoyl peroxide 5 1 applic TOPICAL DAILY 05/12/18 % topical gel dextroamphetamine-amphetamine ER 15 mg PO BID 05/12/18 10 mg 24hr capsule,extend release docusate sodium 100 mg capsule 100 mg PO DAILY 05/12/18 famotidine 40 mg tablet 40 mg PO DAILY 05/12/18 fluticasone 50 mcg/actuation nasal 2 spray INTRANASAL DAILY 05/12/18 spray,suspension Surgical History: Surgical History (Last Reviewed 05/12/18 @ 15:51 by Debora Sepulveda) History of esophagogastroduodenoscopy (EGD) Z98.890 Presence of surgically created arteriovenous shunt for hemodialysis Onset Date: ~11/2017 Z99.2 S/P colonoscopy Z98.890 S/P lymph node biopsy Z98.890 S/P nasal polypectomy Z98.890 Status post carpal tunnel release Z98.890 Status post insertion of dialysis catheter Z95.828, Z99.2 Status post total hip replacement, bilateral Z96.643 port removed Surgical History: - Psychiatric History: Depression CELL ROOM SUPERVISOR History: No pertinent CELL ROOM SUPERVISOR history Smoking Status: Never smoker - *Family History Maternal Family History: Family History (Last Updated 05/12/18 @ 15:52 by Debora Sepulveda) Mother Hypertension Kidney disease ALS (amyotrophic lateral sclerosis) Father Heart disease Hypertension Kidney disease Diabetes History Items: Diabetes, High Cholesterol, Heart Disease, Hypertension, Renal Disease, - Paternal Family History: Family History (Last Updated 05/12/18 @ 15:52 by Debora Sepulveda) Mother Hypertension Kidney disease ALS (amyotrophic lateral sclerosis) Father Heart disease Hypertension Kidney disease Diabetes History Items: Diabetes, High Cholesterol, Heart Disease, Hypertension, Renal Disease Sibling Family History: Family History (Last Updated 05/12/18 @ 15:52 by Debora Sepulveda) Mother Hypertension Kidney disease ALS (amyotrophic lateral sclerosis) Father Heart disease Hypertension Kidney disease Diabetes History Items: Diabetes Review of Systems Constitutional: Denies: Fever, Malaise Eyes: Denies: Blurred vision, Vision Change HEENT: Denies: Head Aches, Visual Changes Cardiovascular: Denies: Chest Pain, Palpitations Respiratory: Denies: Cough, Shortness of Breath, Wheezing Gastrointestinal: Denies: Abdominal Pain, Diarrhea, Nausea, Vomiting Genitourinary: Reports: Dysuria Musculoskeletal: Denies: Joint Pain, Muscle pain Skin: Denies: Lesions, Rash Neurological: Denies: Blurred vision, Focal weakness, Headaches Psychiatric: Denies: Anxiety, Depression Endocrine: Denies: Heat/ Cold Intolerance Hematologic/ Lymphatic: Denies: Easy Bruising, Easy Bleeding VTE Information - Inpt Only VTE Present on Admission: No - Physical Exam General: Alert, Oriented x3, Cooperative HEENT: Atraumatic Neck: Supple, Trachea Midline, Thyroid Normal Size and Texture Lungs: Normal air movement Cardiovascular: Regular rate Abdomen: Soft Extremities: No edema Finger Stick Blood Glucose 77 Laboratory Tests Past 24 Hrs 05/18/18 05/18/18 05/18/18 16:19 16:19 16:19 WBC Pending RBC Pending Hgb Pending Hct Pending MCV Pending MCH Pending MCHC Pending RDW Pending RDW Differential Pending Plt Count Pending Sodium Pending Potassium Pending Chloride Pending Carbon Dioxide Pending Anion Gap Pending BUN Pending Creatinine Pending Est GFR (MDRD) Af Amer Pending Est GFR (MDRD) Non-Af Pending BUN/Creatinine Ratio Pending Glucose Pending Calcium Pending Blood Type Pending Antibody Screen Pending Assessment/Plan All Active Problems (Last Reviewed 05/12/18 @ 15:51 by Debora Sepulveda) Postmenopausal bleeding (Acute) Problem with dialysis access (Acute) Segmental and somatic dysfunction of lumbar region (Acute) Segmental and somatic dysfunction of thoracic region (Acute) Segmental and somatic dysfunction of cervical region (Acute) Preop cardiovascular exam (Acute) Problem with dialysis access (Acute) Colitis (Acute) Leukopenia (Acute) Acute renal failure (Resolved) Chronic kidney disease (Resolved) Dehydration with hyponatremia (Resolved) Hyperkalemia (Resolved) Unresponsiveness (Resolved) 47 yo with postmenopausal bleeding plan d and c hysteroscopy after medical clearance obtained. severe renal failure on dialysis. discussed surgical risks including risks of anesthesia, infection, bleeding, injury to bowel, bladder or blood vessels, and patient wishes to proceed with surgery.
[2018-05-18 17:46] LABS: Scan Indicated on CBC? Y/N NO
[2018-05-18 17:48] LABS: Anion Gap 12 (5-15); BUN 30 mg/dL (7-18); BUN/Creat Ratio 6.6 RATIO (10-20); Calcium,Total 7.9 mg/dL (8.5-10.1); Chloride 96 mmol/L (98-107); Creatinine, Serum 4.56 mg/dL (0.55-1.02); EST Glomerular Filtration Rate 11 mL/min (>60); Est Glom Filt Rate - Afr Amer 13 mL/min (>60); Glucose 210 mg/dL (74-106); Sodium Level 135 mmol/L (136-145)
[2018-05-19] VITALS (10 sets, daily range): BP systolic 102–135; BP diastolic 73–97; PULSE 88–104; RESP 10–14; TEMP 36.2–36.9; O2SAT 96–100; BMI 25.7
--- NOTE | 2018-05-19 | EMB_PTH ---
PATIENT: PAVITHRA PAINTER [place] [facility] [id number] AGE/SX: 47/F ROOM: RE05/19/[address]: Dr. Desirae Minaya MD : [id number] BED: DIS: 05/19/2018 SPEC #: [id number] RECD: 05/19/18 14:58 STATUS: COLLEEN SHAYY #: [id number] ISAIAH: 05/19/18 00:[address]: Desirae Minaya DEPT: SURGICAL PATHOLOGY RECD BY: Chadd Ashby ENTERED: 05/19/18 14:58 SP TYPE: ENDOM BX/C TOMMIE DR: Dr. Mitchell Bowen MD Tissues: Endometrium, NOS Procedures: Surgery Specimen Level IV HEADER OPERATION: Hysteroscopy, dilation and curettage PRE-OP DIAGNOSIS: Postmenopausal bleeding TISSUE SUBMITTED: Endometrial curettings MICROSCOPIC DIAGNOSIS Endometrial curettings: Superficial fragments of inactive endometrial tissue. Fragments of benign ectocervical epithelium, blood and mucous. SJ:carly 05/20/18 MICROSCOPIC DESCRIPTION Slides are reviewed. GROSS DESCRIPTION Received in fixative is one container labeled with the patient's name and designated endometrial curettings. The specimen consists of multiple irregular fragments of pink-red soft tissue mixed with mucoid tissue that in aggregate measure 2 x 2.5 x 0.3 cm. The entire specimen is submitted in one cassette. / RANJITH:carly 05/19/18 TC:4 CPT: 95248
[2018-05-19 09:26] LABS: Bedside Glucose 79 mg/dL (70-110)
--- NOTE | 2018-05-19 10:27 | PCM.OPRPT ---
Problem List (1) Postmenopausal bleeding Status: Acute Report of Operation Date of Procedure: 05/19/18 Pre-Operative Diagnosis: Postmenopausal bleeding Post-Operative Diagnosis: Same Surgery/Procedure Performed:: D&C hysteroscopy Description of Surgical Findings:: Atrophic lining Type of Anesthesia:: Local MAC Special Medications: None Specimen's removed: Endometrial curettings Drains: [place] Estimated Blood Loss (mL): Minimal Fluids Replaced: Crystalloid Description of Procedure: Patient was prepped and draped in a normal sterile fashion under MAC anesthesia. A weighted speculum was placed in the vagina and the anterior lip of the cervix was grasped with a single-tooth tenaculum. A paracervical block was placed with 1% lidocaine. Cervix was progressively dilated to allow passage of a 5 mm hysteroscope. The lining was fully visualized and noted to have an atrophic lining. Uterine sounded to 7 cm. Curettage was performed and minimal amount of tissue was removed, sent to pathology. All instruments were removed from the vagina and excellent hemostasis was noted. Patient was awoken and taken to recovery in stable condition. Grafts/Implants Used: None - Complications None
--- NOTE | 2018-05-19 10:29 | PCM.DC.D&C ---
Discharge Diet: No Restrictions Discharge Activity: Return to Normal Activity, May Shower, May Take a Tub Bath Allergies/Adverse Reactions: Allergies LONG Inhibitors Allergy (Verified 05/19/18 09:00) Angioedema lisinopril Allergy (Verified 05/19/18 09:00) Angioedema Sulfa (Sulfonamide Antibiotics) Allergy (Verified 05/19/18 09:00) Rash sulfamethoxazole [From Bactrim] Allergy (Verified 05/19/18 09:00) Rash trimethoprim [From Bactrim] Allergy (Verified 05/19/18 09:00) Rash Medications to take at Discharge Duloxetine Hcl [Cymbalta] 120 mg PO DAILY 10/01/16 Hydroxychloroquine [Plaquenil] 200 mg PO BIDCM 10/01/16 Linagliptin [Tradjenta] 5 mg PO DAILY 10/01/16 Montelukast [Singulair] 10 mg PO QHS 10/01/16 Acyclovir [Zovirax] 400 mg PO TID PRN 10/26/16 Ergocalciferol [Vitamin D] 1.25 cap PO QMONTH 01/21/17 Amlactin Ultra Body Cream 1 applic TOPICAL DAILY PRN 02/17/17 Cevimeline HCl [Evoxac] 30 mg PO TID 02/17/17 Estradiol [Estrace] 1 mg PO QHS 09/27/17 Sevelamer Carbonate 2,400 mg PO TID 12/09/17 metoprolol tartrate 25 mg tablet 25 mg PO BID 01/11/18 prednisone 10 mg tablet 5 mg PO DAILYCM tab 01/11/18 Acetaminophen [Tylenol Extra Strength] 500 tab BID PRN PRN MDD 1000 01/20/18 Atorvastatin Calcium [Lipitor] 20 mg PO QHS 01/20/18 Baclofen [Lioresal] 10 mg PO TID 01/20/18 Lorazepam [Ativan] 1 mg PO BID 01/20/18 Ondansetron HCl [Zofran] 4 mg PO PRN PRN 01/20/18 Pregabalin [Lyrica] 50 mg PO BID 01/20/18 calcitriol 0.25 mcg capsule 0.25 mcg PO ONCE 05/12/18 ciprofloxacin 500 mg tablet 500 mg PO DAILY #3 tab 05/12/18 clindamycin 1 %-benzoyl peroxide 5 % topical gel 1 applic TOPICAL DAILY 05/12/18 dextroamphetamine-amphetamine ER 10 mg 24hr capsule,extend release 15 mg PO BID 05/12/18 docusate sodium 100 mg capsule 100 mg PO DAILY 05/12/18 famotidine 40 mg tablet 40 mg PO DAILY 05/12/18 fluticasone 50 mcg/actuation nasal spray,suspension 2 spray INTRANASAL DAILY 05/12/18 Primary Care Physician: Mitchell Bowen Chi, MD [Primary Care Provider] - Test Results: Test results from this visit will be discussed in further detail at your follow-up appointment, if applicable. Please Follow Up With: Desirae Minaya MD - [phone]
== END 2018-05-19 11:46 | disposition home or self-care (01) ==
LOC: SDC 08:37 → AC 08:38
PROVIDERS: Family Provider Family Medicine Geriatric Medicine; PCP Family Medicine Geriatric Medicine; Visit Provider Obstetrics & Gynecology
PROC: 0UDB8ZZ Extraction of Endometrium, Via Natural or Artificial Opening Endoscopic (ICD-10-PCS; CPT 58558; principal; 2018-05-19 09:45)
DX: N95.0 Postmenopausal bleeding (principal); E11.22 Type 2 diabetes mellitus with diabetic chronic kidney disease; F41.9 Anxiety disorder, unspecified; M32.14 Glomerular disease in systemic lupus erythematosus; M06.9 Rheumatoid arthritis, unspecified; G25.81 Restless legs syndrome; K58.9 Irritable bowel syndrome, unspecified; K21.9 Gastro-esophageal reflux disease without esophagitis; E78.00 Pure hypercholesterolemia, unspecified; Z79.899 Other long term (current) drug therapy; I27.21 Secondary pulmonary arterial hypertension; I12.0 Hypertensive chronic kidney disease with stage 5 chronic kidney disease or end stage renal disease; N18.6 End stage renal disease; Z99.2 Dependence on renal dialysis; Z79.52 Long term (current) use of systemic steroids
CPT/HCPCS: 58558; 36415; 80048; 82962; 85027; 86850; 86900; 86901; 88305; 93005; J7040; J7120; J2405

== ENCOUNTER → 2018-06-02 12:58 | Outpatient (CLI) | payer MEDICARE, MEDICAID, SELFPAY ==
--- NOTE | 2018-06-02 13:02 | VDUE_ITS ---
Reason For Study: dependence on renal dialysis Right Arm Left Arm Right cephalic vein is compressible. Cephalic V is compressible proximal to the Right Cephalic Vein at the shoulder antecubital space. measures .220 x .209 cm. Left Cephalic Vein at the shoulder Right Cephalic Vein mid bicep measures .210 measures .269 x .279 cm. x .219 cm. Left Cephalic Vein at mid bicep Right Cephalic Vein above antecub measures .194 x .204 cm. measures .184 x .199 cm. Left Cephalic Vein above antecub Right Cephalic Vein below antecub measures .154 x .130 cm. measures .304 x .314 cm. Limited exam on the left side due to Right Cephalic Vein in the forearm previous failed fistulas. measures .320 x .344 cm. Right Cephalic Vein at the wrist measures .271 x .284 cm. Right basilic vein is compressible. Right Basilic Vein at the origin measures .384 x .370 cm. Right Basilic Vein above antecub measures .348 x .373 cm. Right Basilic Vein below antecub measures .274 x .294 cm. Right Basilic Vein in the forearm measures .219 x .219 cm. Right Basilic Vein at the wrist measures .239 x .234 cm. Brachial art 60.5 cm/s. Brachial art .396 x .383 cm. Radial art 53.4 cm/s. Radial art .180 x .164 cm. Interpretation Summary Patent and compressible right upper extremity cephalic and basilic veins as noted. Small right upper arm cephalic vein. Adequate right brachial artery and very small right radial artery. Small left upper arm cephalic vein. Limited left upper extremity evaluation. Ordering Physician: Arline Ambriz Performed By: Quan Cazares RVT ???
== END ==
PROVIDERS: Family Provider Family Medicine Geriatric Medicine; PCP Family Medicine Geriatric Medicine; Visit Provider Internal Medicine Nephrology
DX: Z01.818 Encounter for other preprocedural examination (principal); N18.6 End stage renal disease; Z99.2 Dependence on renal dialysis
CPT/HCPCS: 93970; 93971; G0365

== ENCOUNTER 2018-06-02 14:30 | Outpatient (RCR) | payer MEDICARE, MEDICAID, SELFPAY ==
--- NOTE | 2018-01-04 13:35 | HP.PTEVAL_ITS ---
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 Date of Evaluation: 01/04/18 Physical Therapist: Maureen Paris Visit Plan Frequency: 2-3x /Week Duration: 4-6 Weeks Plan: *LEFT CENTRAL NOAH LINE* POSTURE CORRECTION/STRENGTHENING, INSTRUCTION IN APPROPRIATE BODY MECHANICS. CORE STRENGTHENING. SHAN UE AND LE STRENGTHENING. HEP INSTRUCTION. - Subjective Subjective: Diagnosis: DEBILITY. Work/Leisure: UNEMPLOYEED. Disability: YES. Present symptoms: NECK, SHAN SHOULDER, LOW BACK AND SHAN KNEE PAIN. NEURAPATHY IN TOES AND FINGERS. Present since: 20 YEARS. Pain Scale: WORST 9 /10, LEAST 4/10. Currently: 5/10. IMPROVING SLOWLY. Commenced as a result of : DECEMBER 15 2017 - CATHETER AND FISTUAL SURGERY IN PART INCREASED HER DEBILITY. Symptoms at onset: A SCALELY PATCH ON HER SCALP WAS HER FIRST SYMPTOM AND SHE WAS DIAGNOSED WITH SEVERE DERMATITIS AND THEN SHE WAS EVENTUALLY DIAGNOSED WITH LUPUS AFTER GETTING NON BACTERIAL, NON VIRAL MENENGITIS. SHE REPORTS HER GRAFT WAS CLOTTED AND SHE NEEDED A NEW WAY TO GET DIALYSIS. Worse: LIFTING, OVER EXERTING, POOR SLEEP. Better: REST AND SOMETIMES STRETCHING. Disturbed sleep : YES. Previous history/Previous treatment: LAND AND WATER EX'S. PATIENT PREFERS LAND. Gait: DISTANCE LIMITED. ENDURANCE IS A PROBLEM. STAIRS ARE DIFFICULT. HIP AND KNEE PAIN ALSO LIMITS HER WALKING SOMETIMES. PMH: Medical History. Problem with dialysis access (Acute). Dehydration with hyponatremia ( Acute). Chronic anemia (Chronic). Hyperkalemia (Acute). Acute renal failure ( Acute). Chronic kidney disease (Chronic). Hypertension (Chronic). Narcolepsy (Chronic). Lupus nephritis (Chronic). Degenerative disc disease, cervical ( Chronic). Cervical spondylosis (Chronic). Unresponsiveness (Acute). Colitis ( Acute). Leukopenia (Acute). Diabetes mellitus, type II (Chronic). SLE ( systemic lupus erythematosus) (Chronic). Status post left heart catheterization (Acute). Surgical History: History of esophagogastroduodenoscopy (EGD) (Acute). Presence of surgically created arteriovenous shunt for hemodialysis (Acute). S/P colonoscopy (Acute). S/P lymph node biopsy (Acute). S/P nasal polypectomy (Acute). Status post carpal tunnel release (Acute). Status post total hip replacement, bilateral (Acute). *POSSIBLE D&C PENDING. AWAITING MEDICAL CLEARANCE. - Objective Sitting Posture: POOR. Standing Posture: POOR. PATIENT IS VERY SLOUCHED WITH ROUNDED SHOULDERS AND FORWARD HEAD. Postural strength: POOR. Other Observations: INDEP GAIT INTO PT WITHOUT AD WITH SLOW CADANCE AND NO LOB. INDEP TRANSFER SIT TO STAND WITHOUT UE ASSIST. Motor deficit: SHAN UE AND LE STRENGTH GROSSLY 4-/5 WITH MMT'ING (WRISTS AND HANDS NT). ROM deficit: SHAN UE AND LE ROM WFL. Lumbar mvmt loss: flex - MIN. ext - MOD. R SG - MIN. L SG - MIN. Core strength: POOR. Scapular Strength: POOR. Cervical Mvmt Loss: CERVICAL ROM IS WFL ALL PLANES. OTHER: PATIENT HAS GENERALIZED WEEK AND POOR ENDURANCE. SHE IS ABLE TO SLS ON EACH LEG WITHOUT UE ASSIST X APPROX 8 SECONDS EACH. HER ENTIRE LEFT UE IS EDEMATOUS. OT CONSULT RECOMMENDED. PATIENT PLANS TO DISCUSS WITH DR. VALDEZ WEDNESDAY. FURTHER WRIST AND HAND TESTING DEFERRED TO OT. - Goals Goal 1:: INDEP AND SAFE GAIT ON ALL SURFACES WITH LEAST ASSISTIVE DEVICE X 1600 FEET WITH MILD SOB. Goal Time Frame: 4-6 Weeks Goal 2:: INDEP HEP FOR GENERAL UPPER AND LOWER BODY STRENGTHEING FOR CONTINUED IMPROVEMENT ONCE FORMAL PT CONCLUDES. Goal Time Frame: 4-6 Weeks - Rehabilitation Potential Rehabilitation Potential: Fair - Anticipated Interventions Patient/Client Instruction: Educate patient on: Condition, Plan of Care, Risk Factors, Benefits of Fitness Program For the Purpose of:: To improve self management Therapeutic Exercise to Include: Strength training, Endurance training, Balance training, Body mechanics, Postural training, Dynamic Lumbar Stabilization, Scapular Strength/Stabilization For the Purpose of:: To improve muscle performance and motor function, To increase tolerance to activity/condition/position, To improve ability of physical actions for home/community/work/leisure, To improve gait and locomotor functions, To improve endurance, To improve balance Thank you for the opportunity to evaluate your patient. For Medicare and Medicare HMO plans, please review the plan of care and approve it. It will need to be FAXED BACK to us at [phone] for Medicare purposes. Please let me know if there are questions or concerns regarding this plan of care. Physician Signature: Date:
--- NOTE | 2018-02-08 13:17 | HP.PT.NRP ---
HP - Discharge Summary (1) - Patient Information PAVITHRA PAINTER was seen in my office for initial evaluation on 01/04/18. The following Plan of Care was established for this patient: Initial Frequency: 2-3x /Week Initial Duration: 4-6 Weeks - Anticipated Interventions Patient/Client Instruction: Educate patient on: Condition, Plan of Care, Risk Factors, Benefits of Fitness Program For the Purpose of:: To improve self management Therapeutic Exercise to Include: Strength training, Endurance training, Balance training, Body mechanics, Postural training, Dynamic Lumbar Stabilization, Scapular Strength/Stabilization For the Purpose of:: To improve muscle performance and motor function, To increase tolerance to activity/condition/position, To improve ability of physical actions for home/community/work/leisure, To improve gait and locomotor functions, To improve endurance, To improve balance This patient was last seen in our office 01/27/18. Pertinent comments regarding their Physical therapy will appear below: This patient has not returned to Physical Therapy and is appropriate to return to MD for further follow-up as needed. At this point I will be discontinuing this patient from physical therapy. I would be happy to see this patient again in the future if found appropriate by the physician. Thank you! Maureen Solis
--- NOTE | 2018-03-01 13:29 | HP.PTREVAL_ITS ---
Mitchell Bowen, It has been my pleasure to treat PAVITHRA PAINTER over the last 7 visits for DEBILITY. Please see the progress note below for an update on the physical therapy plan of care! Subjective: PATIENT REPORTS SHE WANTS TO RESUME PT TO TRY TO MEET HER ORIGINAL GOAL OF BEING ABLE TO WALK TWO BLOCKS. SHE STATES SHE FELL A COUPLE WEEKS AGO ON THE SIDEWALK WALKING THE DOG AND SHE SKINNED UP HER KNEES AND SHE LANDED ON HER LEFT UE. SHE REPORTS SHE CAN NOW BARELY MOVE OR ROTATE HER ARM WITHOUT PAIN. SHE STATES IT IS SWOLLEN BUT IT WAS ALREADY SWOLLEN BEFORE THE FALL DUE TO THE FISTULA POSSIBLY BEING BLOCKED. FISTULAGRAGN PENDING. SHE REPORTS SHE HAS NOT HAD HER LEFT UE EXAMINED SINCE THE FALL BUT SHE HAS AN APPOINTMENT WITH DR. BOWEN THIS AFTERNOON. PATIENT REPORTS SHE FEELS LIKE SHE WAS MAKING PROGRESS WITH PT BEFORE SHE HAD TO STOP COMING BECAUSE SHE ACCIDENTALLY PULLED OUT HER DIALYSIS CATHETERAND HAD TO HAVE SURGERY TO REPLACE IT. ALSO WAS IMMOBILIZED BY THE FALL. WANTS TO RESUME PT DUE TO PROGRESS SHE WAS MAKING BUT NOT MEETING GOAL YET. STARTED SEEING A CHIROPRACTOR (DR. TUTTLE) A FEW WEEKS AGO AND NO EFFECT YET PER PATIENT REPORT. Objective/Function: OVER ALL, PATIENT HAS IMPROVED SINCE INITIAL EVAL INTERMS OF GENERAL GAIT, BALANCE AND STRENGTH (LUE NT). UPON EXAM: Sitting Posture: POOR. Standing Posture: POOR. PATIENT IS VERY SLOUCHED WITH ROUNDED SHOULDERS AND FORWARD HEAD. Postural strength: POOR. Other Observations: INDEP GAIT INTO PT WITHOUT AD WITH SLOW CADANCE AND NO LOB OR SOB. INDEP TRANSFER SIT TO STAND WITHOUT UE ASSIST. Motor deficit: RIGHT UE AND LLE STRENGTH GROSSLY 4 TO 5/5 WITH MMT'ING NOW. THIS IS AN IMPROVEMENT FROM INITIAL EVAL. (LEFT UE AND SHAN WRISTS AND HANDS NT). ROM deficit: SHAN UE AND LE ROM WFL. Lumbar mvmt loss: flex - NIL. ext - MOD TO ALBERTO. R SG - MIN. L SG - MIN. Core strength: POOR. Scapular Strength: POOR. Cervical Mvmt Loss : CERVICAL ROM IS WFL ALL PLANES. OTHER: PATIENT HAS GENERALIZED WEEK AND POOR ENDURANCE. SHE IS ABLE TO SLS ON EACH LEG WITHOUT UE ASSIST X > 20 SECONDS EACH. HER ENTIRE LEFT UE IS EDEMATOUS. OT CONSULT RECOMMENDED AGAIN ESPECIALLY WITH THE RECENT FALL. PATIENT PLANS TO DISCUSS WITH DR. BOWEN TODAY. FURTHER WRIST AND HAND TESTING DEFERRED TO OT. LEFS HAS IMPROVED FROM 27 TO 36. RE-INTRO TO THER EX TODAY WAS CHALLENGING WITH PATIENT HAVING MILD SOB WITH STRENGTHENING AND DIFFICULTY WITH BALANCE ACTIVITIES. Plan Plan: *LEFT CENTRAL NOAH LINE*. *RIGHT DIALYSIS CATHETER*. HOLD ANY LEFT UE TREATMENT UNTIL OK'D BY DR. BOWEN AND/OR OT. POSTURE CORRECTION/STRENGTHENING, INSTRUCTION IN APPROPRIATE BODY MECHANICS. CORE STRENGTHENING. SHAN UE AND LE STRENGTHENING. HEP INSTRUCTION. Goals Goal 1:: INDEP AND SAFE GAIT ON ALL SURFACES WITH LEAST ASSISTIVE DEVICE X 1600 FEET WITH MILD SOB. Goal Time Frame: 4-6 Weeks Goal Progress: Progressing Goal 2:: INDEP HEP FOR GENERAL UPPER AND LOWER BODY STRENGTHEING FOR CONTINUED IMPROVEMENT ONCE FORMAL PT CONCLUDES. Goal Time Frame: 4-6 Weeks Goal Progress: Progressing Anticipated Interventions Patient/Client Instruction: Educate patient on: Condition, Plan of Care, Risk Factors, Benefits of Fitness Program For the Purpose of:: To improve self management Therapeutic Exercise to Include: Strength training, Endurance training, Balance training, Body mechanics, Postural training, Dynamic Lumbar Stabilization, Scapular Strength/Stabilization For the Purpose of:: To improve muscle performance and motor function, To increase tolerance to activity/condition/position, To improve ability of physical actions for home/community/work/leisure, To improve gait and locomotor functions, To improve endurance, To improve balance Please do not hesitate to contact me at [phone] by phone or Fax: if you have questions or concerns regarding this new plan of care! Sincerely, Maureen Solis
--- NOTE | 2018-03-10 18:34 | HP.OTEVAL ---
Patient's Visit Information PAVITHRA PAINTER is a 47 year old F, referred to Occupational Therapy by Mitchell Womack, with a diagnosis of Radial Head Fx. Date of Evaluation: 03/10/18 Occupational Therapist: Chana Monique - Subjective Subjective: Pavithra arrived in sling and juan wrap to forearm. She noted that she was walking her dog and tripped and feel over sidewalk while walking. She went around for 2 weeks prior to getting checked out. Notes radial head fx and Dr. Woods has placed in sling. Dr. womack wrote OT order. Unable to give report of status of porfirio. After looking at x-ray radial head fx minimally displaced and apears to be healing. Notes sling is cause neck to hurt some. - Pain Right Elbow 5 - Notes 5/10 pain during assessment but minimal pain with movmt t/o session. 2x grimance noted while testing fx pinch and edcuated to stop as pain occured. Pain Intensity Range: 2, 6 - Objective Objective/Observation: Some decreased sensation and strength noted. Skin closed. Scar over volar forearm due to skin graft from previous surgery. Scar closed, healed, and faded. Fistula placement dorsal anterior to medial epicondyle, some increased swelling noted t/o UE. Juan wrap removed and increased intended ovr forearm from wrap. Concerns: Notes L UE edema since placement of fistula. Will monitor and will consult with Katie OT if further garment fitting or management techniques maybe beneficial. Jose Juan manage through ROM and edema management techniques at this time. Explained she has been using juan bandage and are wrapped prior to session. Increased indentation in skin potentially indicating wrap too tight and decreased fluid movements causing some increased edema. - ROM Elbow: flex R 7-134, L 11-110 Forearm: sup R 0-59, L 0-61 Wrist: flexion R 0-45, L 0-60; ext. R 0-51, L 0-55 ROM Comments: some decreased flexion noted in L affected arms secondary to radial head fx. - Strength Watch Guard Gate: R 79, L 52 Lateral Pinch: R 18, L 7 pain in thumb Tripod Pinch: R 17, L 10 Tip-to-Tip Pinch: R 16, 8 Strength Comments: some pain in thumb during lateral pinch. No pain generalized to elbow when completing pinch or glove pairer tasks. - Sensation Thumb: R 3.84, L 3.84 Index: R 3.84, L 3.84 Middle: R 3.84, L 3.84 Ring: R 3.84, L 3.22 Little: R 3.84, L 3.61 Sensation Comments: Hand numbness and tingling in B hands.Has neuropathy B feet. Hand numbness likley related to neuropathy from DMII. - In-Hand Manipulation Finger to Palm Translation: Mild - Right, Moderate - Left Palm to Finger Translation: Normal - Right, Mild - Right, Mild - Left, Moderate - Left - Upper Limb Functional Index ULFI Score: 16.0 - Goals Goal:: Pavithra in to increase L glove pairer by 10-15 lbs to promote increased ability to maniplate with L UE 4/5 trials 80% of the time to promote increased ability to return to PLOF by d/c. Goal:: Pavithra to use pain management techniques to have no more than 1-2/10 during ADL/AIDls 4/ 5 trials 80% of the time to return to PLOF by d/c. Goal:: Pavithra to complete compensations for sensory deficits e.g. use of vision to promote safety and decrease dropping self care items 4 5 trials 80% of the time by d/c. Goal:: Pavithra to be mod I to complete joint protection and energy conservations techniques to return to progressively using L UE for ADL/IAdls 4/5 trials 80% of th time by d/c. Goal:: Pavithra to return to all ADl/IAdls with L UE with minimal pain 4/ 5trials 80% of the time by d/c. - Rehabilitation General Assessment: Pavithra arrived to OT evaluation on this date. Noted radial head fracture with date of injury about three weeks ago. Strength and ROM limited as well as increased edema noted in L UE. Notes increased edema since fistula placed into L UE around two months ago. Will completed Ot to promote B Ue strength, endurance, and increased ability to use L UE at PLOF for ADl/IADls by d/c. Rehabilitation Potential: Good - Anticipated Interventions Anticipated Interventions: A/AAROM/PROM, Strengthening, Edema Control, Modalities, Orthoses, Joint Protection/Energy Conservation, Ergonomic Education, Fine Motor Coord/Musa, ADL Training, Caregiver Training, Home Program Other Interventions: Checked with Dr. Shah office and noted no need for protective splint at this time. She is to use sling. - Visit Plan Frequency: 2x /Week Duration: 6 Weeks General Plan: OT to work on progressively treating elbow and L Ue through progressive ROM, strength, pain management, and edema control to help Pavithra return to normal ADL/IAdls functioning with L UE. TEXT: Thank you for the opportunity to evaluate your patient. For Medicare and Medicare HMO plans, please review the plan of care and approve it. It will need to be FAXED BACK to us at [phone] for Medicare purposes. Please let me know if there are questions or concerns regarding this plan of care. Physician Signature: Date:
--- NOTE | 2018-03-22 13:15 | HP.PTREVAL_ITS ---
Mitchell Bowen, It has been my pleasure to treat PAVITHRA PAINTER over the last 9 visits for DEBILITY. Please see the progress note below for an update on the physical therapy plan of care! Subjective: PATIENT REPORTS SHE IS BEING REFERRED TO A LARGER HOSPITAL FOR TREATMENT OF HER LEFT ARM DUE TO THERE BEING A BLOCKAGE FOUND ON [place] LAST WEDNESDAY. SHE IS AWAITING THAT REFERRAL. SHE IS ANTICIPATING IT TO BE AN OUT-PATIENT PROCEEDURE. FROM A PHYSICAL THERAPY STAND POINT SHE REPORTS HER ENDURANCE AND BALANCE ARE NOT WHERE SHE WANTS THEM TO BE YET. PATIENT REPORTS SHE TOOK A 6 MIN WALK FOR A BREATHING TEST LAST WEEK BUT SHE HASN'T REALLY BEEN WALKING FOR EXERCISE OTHERWISE. STATES SHE IS HESITANT TO WALK OUTSIDE SINCE SHE FELL. Objective/Function: UPON EXAM: Sitting Posture: POOR. Standing Posture: POOR. PATIENT IS VERY SLOUCHED WITH ROUNDED SHOULDERS AND FORWARD HEAD. LEFT UE IN SLING. Postural strength: POOR. Other Observations: INDEP GAIT INTO PT WITHOUT AD WITH SLOW CADANCE AND NO LOB OR SOB. INDEP TRANSFER SIT TO STAND WITHOUT UE ASSIST. Motor deficit: RIGHT UE AND SHAN LE STRENGTH GROSSLY 4 TO 5/5 WITH MMT'ING NOW. (LEFT UE AND SHAN WRISTS AND HANDS NT). ROM deficit: RUE AND SHAN LE ROM WFL. Lumbar mvmt loss: flex - NIL. ext - MOD TO ALBERTO. R SG - MIN. L SG - MIN. Core strength: POOR. Scapular Strength: POOR. Cervical Mvmt Loss: CERVICAL ROM IS WFL ALL PLANES. OTHER: PATIENT HAS GENERALIZED WEEK AND POOR ENDURANCE. SHE IS ABLE TO SLS ON EACH LEG WITHOUT UE ASSIST X > 20 SECONDS EACH. LEFS HAS REMAINED 36 SINCE LAST RE-CHECK. PATIENT HAD TO BRIEFLY LEAVE PT SESSION TO USE THE BATHROOM AND ALSO HAD TO TAKE A COUPLE PHONE CALL DURING THIS SESSION. PATIENT IS APPROPRIATE TO RESUME PT. SEE FURTHER ASSESSMENT INFORMATION FOR TODAY'S TREATMENT IN THER ACT DETAILS. Plan Plan: *LEFT CENTRAL NOAH LINE*. *RIGHT DIALYSIS CATHETER*. *NO LEFT UE TREATMENT IN PT - CURRENTLY IN OT*. POSTURE CORRECTION/STRENGTHENING ABLE TO IMPROVE POSTURE AND RIGHT UE STRENGTH, INSTRUCTION IN APPROPRIATE BODY MECHANICS. CORE STRENGTHENING. SHAN UE AND LE STRENGTHENING (EXCEPT LEFT UE). * CONTINUE GYM EX'S BUT NEED TO REALLY FOCUS ON HEP INSTRUCTION. PATIENT DOES NOT PLAN TO GET A MEMBERSHIP TO A GYM POST PT AND PREFERS HOME EX PROGRAM. Goals Goal 1:: INDEP AND SAFE GAIT ON ALL SURFACES WITH LEAST ASSISTIVE DEVICE X 1600 FEET WITH MILD SOB. Goal Time Frame: 4-6 Weeks Goal Progress: Progressing Goal 2:: INDEP HEP FOR GENERAL UPPER AND LOWER BODY STRENGTHEING FOR CONTINUED IMPROVEMENT ONCE FORMAL PT CONCLUDES. Goal Time Frame: 4-6 Weeks Goal Progress: Progressing Anticipated Interventions Patient/Client Instruction: Educate patient on: Condition, Plan of Care, Risk Factors, Benefits of Fitness Program For the Purpose of:: To improve self management Therapeutic Exercise to Include: Strength training, Endurance training, Balance training, Body mechanics, Postural training, Dynamic Lumbar Stabilization, Scapular Strength/Stabilization For the Purpose of:: To improve muscle performance and motor function, To increase tolerance to activity/condition/position, To improve ability of physical actions for home/community/work/leisure, To improve gait and locomotor functions, To improve endurance, To improve balance Please do not hesitate to contact me at [phone] by phone or Fax: if you have questions or concerns regarding this new plan of care! Sincerely, Maureen Solis
--- NOTE | 2018-05-05 12:57 | HP.OTREVAL ---
Mitchell Chi Andrés, It has been my pleasure to treat PAVITHRA PAINTER over the last 10 visits for Radial Head Fx. Please see the progress note below for an update on the occupational therapy plan of care! Subjective: Arrived and noted that feels about 80% back. No compression today. Noted not completing exercises regularly for strength or ROM every hour to manage edema. She is concerned about swelling and seeing surgeon of fistula next Wednesday. Objective/Function: New measurements taken today. ROM is WFL. Edema remains t/o R UE but is secondary to fistula placement. 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 Completed circumference edema measurments and are as follows: proximal forearm R 9.8 inchs, L 12 inches; wrist R 6.3 inches, L 7.5 inches; proximal phalanx of IF R 7.3 cm, L 7.4 cm. Plan Frequency: 2x /Week Duration: 6 Weeks Visits in this POC: 12 Plan: Continue for 2 more sessions. Slow to progress but has gained about 5 lbs of precision agriculture technician strength from inital evaluation. Completed ULFI as well as DASH as Pt. rating DASH for B arms and due to recent fistula placement has increased edema and soreness in L shoulder. She reports not completing BUE HEP regularly but does work putty HEP at home. Due to increased edema OT looking into the potential of full arm compression garment. She will see [facility] specialist if she wants to get custom compression garment after further follow up with Dr. Valverde next Wednesday. Tubigrip provided and to help with edema management at night and she is to be completing hourly ROM exercises during day to manage edema. She noted she has not been completing exercises. Will continue to provide additional manage techniques and will be d/c. Goals - Goals Goal:: Pavithra in to increase L precision agriculture technician by 10-15 lbs to promote increased ability to maniplate with L UE 4/5 trials 80% of the time to promote increased ability to return to PLOF by d/c. Goal:: Pavithra to use pain management techniques to have no more than 1-2/10 during ADL/AIDls 4/ 5 trials 80% of the time to return to PLOF by d/c. Goal:: Pavithra to complete compensations for sensory deficits e.g. use of vision to promote safety and decrease dropping self care items 4 5 trials 80% of the time by d/c. Goal:: Pavithra to be mod I to complete joint protection and energy conservations techniques to return to progressively using L UE for ADL/IAdls 4/5 trials 80% of th time by d/c. Goal:: Pavithra to return to all ADl/IAdls with L UE with minimal pain 4/ 5trials 80% of the time by d/c. Anticipated Interventions Anticipated Interventions: A/AAROM/PROM, Strengthening, Edema Control, Modalities, Orthoses, Joint Protection/Energy Conservation, Ergonomic Education, Fine Motor Coord/Musa, ADL Training, Caregiver Training, Home Program Other Interventions: Checked with Dr. Shah office and noted no need for protective splint at this time. She is to use sling. Please do not hesitate to contact me at [phone] by phone or if you have questions or concerns regarding this new plan of care! Sincerely, Chana Monique
--- NOTE | 2018-05-24 14:45 | HP.PTDCSUM_ITS ---
HP - PT D/C Summary It has been my pleasure to treat PAVITHRA PAINTER under orders from Mitchell Bowen, for the diagnosis of DEBILITY for a total of 17 visit(s). Discharge Date: 05/24/18 Please see the following information for a summary of their discharge status. - Subjective Subjective: PATIENT REPORTS SHE IS STRONGER AND HER STAMINA AND HER ENDURANCE IS BETTER SINCE STARTING PT. SHE ALSO REPORTS HER BALANCE HAS IMPROVED WITH THERAPY. SHE REPORTS SHE IS WORKING ON HER HOME EX PROGRAM AND SHE IS APPLYING FOR SCHOLARSHIP/LOWER RATES AT THE [facility] TO SEE IF SHE CAN GET MEMBERSHIP THERE. PATIENT REPORTS THEY TIED OFF HER FISTULA IN HER LUE AND HER FX HEALED. SHE REPORTS THEY ARE LOOKING AT PUTTING A FISTULA IN HER RIGHT UE. PATIENT REPORTS SHE CURRENTLY HAS A 10 LB LIFITNG LIMIT ON HER LEFT UE. SHE REPORTS THE ONE THING SHE WOULD LIKE TO WORK MORE ON IS HER NECK AND UPPER BACK STRENGTH. - Pain Neck and Shoulder Pain Intensity (Out of 10): 5 Back Pain Intensity (Out of 10): 4 bilat. knees Pain Intensity (Out of 10): 2 - Overall Improvement % Improvement: 80 - Objective Objective/Function: ALL PT GOALS HAVE BEEN MET. PATIENT DOES SEEM TO STRUGGLE WITH COMPLIANCE WITH HEP THOUGH. HER REPORTING THAT SHE IS PURSING [facility] MEMBERSHIP IS A SIGN OF HER MOTIVATION TO TRY TO BE COMPLIANT WITH INDEP EX. UPON EXAM: Sitting Posture: FAIR. Standing Posture: FAIR. PATIENT HAS MUCH BETTER POSTURE CONTROL IN SITTING, STANDING AND WALKING AND VOICES THAT SHE HAS BEEN WORKING ON IT. Postural strength: FAIR. Other Observations: INDEP GAIT INTO PT WITH GOOD CADANCE AND WITHOUT AD AND NO LOB OR SOB. INDEP TRANSFER SIT TO STAND WITHOUT UE ASSIST. Motor deficit: SHAN LE STRENGTH GROSSLY 4-5/5 WITH MMT'ING. ROM deficit: SHAN LE'S WFL. Lumbar mvmt loss: flex - NIL. ext - MOD TO ALBERTO. R SG - MIN. L SG - MIN. Core strength: FAIR. Cervical Mvmt Loss: CERVICAL ROM IS WFL ALL PLANES. OTHER: PATIENT IS ABLE TO SLS ON EACH LEG WITHOUT UE ASSIST X > 20 SECONDS EACH. SHE IS ABLE TO BALANCE BETTER ON HER RIGHT LE THAN LEFT. SHE REPORTS SHE RECENTLY GOT ORTHOTICS AND HER LEFT FOOT IS STILL GIVING HER TROUBLE. LEFS HAS IMPROVED FROM 36 TO 43 SINCE LAST RE- CHECK. PATIENT IS APPROPRIATE FOR DISCHARGE TO INDEP HEP AT THIS TIME AND TO PURSUE [place] MEM[place]IP. PATIENT IS STILL IN OCCUPATIONAL THERAPY WITH APPOINTMENTS PENDING. - Goals Goal 1:: INDEP AND SAFE GAIT ON ALL SURFACES WITH LEAST ASSISTIVE DEVICE X 1600 FEET WITH MILD SOB. Goal Progress: Goal Met Goal 2:: INDEP HEP FOR GENERAL UPPER AND LOWER BODY STRENGTHEING FOR CONTINUED IMPROVEMENT ONCE FORMAL PT CONCLUDES. Goal Progress: Goal Met - Plan Plan: D/C - PATIENT IS AGREEABLE. WE WOULD BE HAPPY TO RESUME PT IN THE FUTURE NEEDED/INDICATED. - D/C Information If there are questions or concerns regarding this patient's physical therapy, please feel free to call me at [phone]. Thank you for the referral of this patient. Sincerely, Maureen Solis
--- NOTE | 2018-06-02 15:10 | HP.OTDCSUM_ITS ---
HP - OT D/C Summary It has been my pleasure to treat PAVITHRA PAINTER under orders from Mitchell Bowen, for the diagnosis of Radial Head Fx for a total of 11 visit(s). Please see the following information for a summary of their discharge status. - Overall Improvement % Improvement: 87 - Objective Objective/Function: ROM is WFL and edema is significantly decreased since removed of fistula in LUE. Strength assessment completed on this date: special forces engineer sergeant flexed position R 95, L 62; special forces engineer sergeant ext position R 78, L 75; lateral R 16, L 15; tripod R 16, L 14; tip pinch R 10, L 10 lbs. Completed monofilament for sensory testing and measurements as follows: 2 ndR 3.61, L 3.84. 3rd R 3.84, L 3.84. 4th R 3.84, L 3.61. 5th R 2.83, L 3.81. thumb R 3.84, L 2.83. Some sensory impairment noted but does have neuropathy in feet and has already had CTS release in B hands. - Goals Patient Goals: Regain Mobility, Regain Strength, Decrease Pain, Return to Work, Decrease Swelling/Stiffness, Improve Fine Motor Skills, Use Hand/Wrist/Arm Normally Again, Sleep Better, Increase ROM, Be More Independent in ADLS, Resume Former Household Responsibilities (Cooking,Cleaning,Yard, etc.), Resume Hobbies Goal:: Pavithra in to increase L special forces engineer sergeant by 10-15 lbs to promote increased ability to maniplate with L UE 4/5 trials 80% of the time to promote increased ability to return to PLOF by d/c. Goal:: Pavithra to use pain management techniques to have no more than 1-2/10 during ADL/AIDls 4/ 5 trials 80% of the time to return to PLOF by d/c. Goal:: Pavithra to complete compensations for sensory deficits e.g. use of vision to promote safety and decrease dropping self care items 4 5 trials 80% of the time by d/c. Goal:: Pavithra to be mod I to complete joint protection and energy conservations techniques to return to progressively using L UE for ADL/IAdls 4/5 trials 80% of th time by d/c. Goal:: Pavithra to return to all ADl/IAdls with L UE with minimal pain 4/ 5trials 80 % of the time by d/c. - Plan Plan: She is doing well and was kept on caseload to determine if she wanted to get prefabricated custom compress garment for LUE due to edema from fistula placement. Since fistula has been removed edema has decreased significantly and she is back to PLOF with most tasks. Due to recent fistula removed of L UE she has 10 lbs lifting restriction which does limit some participation in ADL/IADL s but as she recovered from surgery will continue to progress. She will be d/c' d at this time. - D/C Information If there are questions or concerns regarding this patient's occupational therapy , please fell free to call me at [phone]. Thank you for the referral of this patient. Sincerely, Chana Monique
== END 2018-06-02 19:00 | disposition home or self-care (01) ==
LOC: OT 14:30
PROVIDERS: Family Provider Family Medicine Geriatric Medicine; PCP Family Medicine Geriatric Medicine; Visit Provider Family Medicine Geriatric Medicine
DX: N18.3 Chronic kidney disease, stage 3 (moderate) (principal); D63.1 Anemia in chronic kidney disease; R53.81 Other malaise
CPT/HCPCS: 82728; 83540; 83550; 85025; 97110; 97140; 97163; 97164; 97166; 97168; 97530; G8988; G8989

== ENCOUNTER → 2018-06-09 14:20 | Outpatient (CLI) | payer MEDICARE, MEDICAID, SELFPAY ==
[2018-06-09 17:26] LABS: ALB/GLOB Ratio 0.8 RATIO (0.9-2.4); AST(SGOT) 48 U/L (15-37); Alanine Aminotransfer ALT/SGPT 26 U/L (13-56); Albumin, Serum 3.3 g/dL (3.2-5.0); Alkaline Phosphatase 91 U/L (45-117); Anion Gap 12 (5-15); BUN 50 mg/dL (7-18); BUN/Creat Ratio 7.6 RATIO (10-20); Calcium,Total 8.2 mg/dL (8.5-10.1); Chloride 99 mmol/L (98-107); Creatinine, Serum 6.56 mg/dL (0.55-1.02); EST Glomerular Filtration Rate 7 mL/min (>60); Est Glom Filt Rate - Afr Amer 9 mL/min (>60); Globulin 4.3 g/dL (2.2-4.2); Glucose 112 mg/dL (74-106); Potassium 5.1 mmol/L (3.5-5.1); Protein, Total 7.6 g/dL (6.4-8.2); Sodium Level 132 mmol/L (136-145); Thyroid Stim Hormone (TSH) 0.27 uIU/mL (0.358-3.74)
[2018-06-09 17:42] LABS: Absolute Lymphocyte Count 0.94 X10^3/ul (0.83-4.51); Absolute Neutrophil Count 7.6 X10^3/uL (2.0-7.7); Basophil# 0.02 X10^3/uL; Basophil% 0.2 % (0-1); Eosinophil# 0.03 X10^3/uL; Eosinophils% 0.3 % (0-5); Hematocrit 30.9 % (37-47); Hemoglobin 10.2 g/dl (12.0-15.0); Lymphocyte # 0.94 X10^3/ul (4.0); Lymphocyte % 10.3 % (19-41); Mean Corpuscular Hgb 31.3 pg (27.0-32.0); Mean Corpuscular Volume 94.8 fL (81-99); Mean Platelet Vol. 10.7 fl (6.2-12.0); Monocyte# 0.58 X10^3/uL; Monocyte% 6.3 % (0-10); Neutrophil # 7.56 X10^3/uL (2.7-7.7); Neutrophil % 82.6 % (47-70); POSITIVE COUNT NO; POSITIVE DIFFERENTIAL NO; POSITIVE MORPHOLOGY NO; Platelet Count 165 K/mm3 (150-450); RBC Distribution Width SD 50.6 fl (35.1-43.9); Red Blood Count 3.26 M/mm3 (4.2-5.4); White Blood Count 9.2 K/mm3 (4.4-11.0)
== END ==
PROVIDERS: Family Provider Family Medicine Geriatric Medicine; PCP Family Medicine Geriatric Medicine; Visit Provider Family Medicine Geriatric Medicine
DX: E11.9 Type 2 diabetes mellitus without complications (principal); N39.0 Urinary tract infection, site not specified
CPT/HCPCS: 36415; 80053; 84443; 85025; 87086; 87088

== ENCOUNTER → 2018-07-28 13:57 | Outpatient (CLI) | payer MEDICARE, MEDICAID, SELFPAY ==
[2018-07-28 13:13] VITALS: BMI 26.4
[2018-07-28 15:00] LABS: AST(SGOT) 35 U/L (15-37); Alanine Aminotransfer ALT/SGPT 9 U/L (13-56); Albumin, Serum 3.1 g/dL (3.2-5.0); Alkaline Phosphatase 72 U/L (45-117); Bilirubin, Direct 0.18 mg/dL (0.00-0.30); Cholesterol 89 mg/dL (200); Globulin 4.2 g/dL (2.2-4.2); High Density Lipoprotein 62 mg/dL; Protein, Total 7.3 g/dL (6.4-8.2); Triglycerides 145 mg/dL; Very Low Density Lipoprotein 29 mg/dL (5-40)
== END ==
PROVIDERS: Family Provider Family Medicine Geriatric Medicine; PCP Family Medicine Geriatric Medicine; Referring Provider Internal Medicine Cardiovascular Disease; Visit Provider Internal Medicine Cardiovascular Disease
DX: N18.6 End stage renal disease (principal); I27.21 Secondary pulmonary arterial hypertension
CPT/HCPCS: 36415; 80061; 80076

== ENCOUNTER 2018-08-07 22:04 | Emergency (ER) | payer MEDICARE, MEDICAID, SELFPAY ==
[2018-07-28 13:13] VITALS: BMI 26.4
[2018-08-07 22:06] VITALS: BP 145/95; PULSE 84; PULSE 85; RESP 17; TEMP 36.6; O2SAT 100; O2SAT 98; BMI 27.8
[2018-08-07 22:11] LABS: Bedside Glucose 67 mg/dL (70-110)
--- NOTE | 2018-08-07 22:42 | ED.VISSUMM ---
- ER Visit Summary Date of Service: 08/07/18 Chief Complaint: [] Could not wake me up History of Present Illness: The patient is a 47 F patient could not wake up today. She stated that she did some shopping with her friend and went back to their house and was feeling tired and nodding off during dinner. She laid down and fell asleep. Her friend later could not wake her up. Called EMS. EMS could not wake her up as well. Brought in in then woke up upon arrival. She reports a history of narcolepsy. She states this happens infrequently. She denies any symptoms currently. Her blood sugar was 67. She is a dialysis patient and her last dialysis was 2 days ago. She denies any alcohol or illegal drug use. She had a metabolic encephalopathy in September of this year and required intubation secondary to uremia at that time. Physical Examination: Vital signs reviewed General: Well-nourished well-developed Head: Normocephalic atraumatic Eyes: Pupils equal round and reactive to light extraocular movements intact ENT: TMs clear no hemotympanum no trauma Neck: Nontender full range of motion Cardiovascular: Regular rate rhythm no murmurs normal S1-S2 Respiratory: No distress clear to auscultation bilaterally chest nontender Abdomen: Soft nontender nondistended normal bowel sounds no masses Back: Nontender no CVA tenderness Extremities: Nontender active range of motion ?4 extremities no trauma Skin: Normal color no trauma Neuro alert oriented cranial nerves II through XII intact normal strength sensation reflexes Test Results: [] Emergency Department Course and Treatment: [] Patient resting comfortably without complaint. Lab work obtained. Lab work shows a CBC normal except hemoglobin 9.2 which is chronically low for the patient. Previous was 10.2. Chemistries normal except creatinine 9.4 BUN 74. At this time I think the patient's excessive sleepiness is from uremia. Her urine analysis showed nothing acute. Blood glucose test was 83 and she did tolerate some orals. She has been awake and easily arousable here. I think she can be discharged. Her mom is at home. She shows no signs of not being able to be aroused here. She has dialysis in the morning and the next 6 hours. I offered to watch her here until she could be discharged to dialysis but she like to go home. Treatment Plan: [] Disposition: [] Impression: [] Unresponsive episode likely secondary to uremia This note was generated with [employer] dictation software. It may contain incorrect words, spelling, and punctuation that were not noted in review of the chart prior to signing ED Disposition - Plan for ED Patient: Chief Complaint: Unresponsive Referrals: Mitchell Bowen Chi, MD [Primary Care Provider] -
[2018-08-07 22:53] LABS: Bacteria 0 SEEN /hpf (None Seen); Mucous, Urine 0 SEEN /hpf (<or=2+)
[2018-08-07 22:55] LABS: Color, Urine Yellow (Yellow); Glucose, Dipstick 50 mg/dl (Normal); Ketone-Dipstick Negative (Negative); Leukocyte Esterase-Dipstick Negative /ul (Negative); Nitrite-Dipstick Negative (Negative); Occult Blood-Urine 10 /ul (Negative); Protein-Dipstick 100 mg/dl (Negative); Specific Gravity, Urine 1.015 (1.002-1.030); Urine Bilirubin Dipstick Negative (Negative); Urine Clarity Sl. Cloudy (Clear); Urine Urobilinogen Normal (Normal)
[2018-08-07 23:02] LABS: Squamous Epithelial Cells - UA 0-5 SEEN /hpf (5-10)
[2018-08-07 23:03] LABS: Hyaline Cast 0-5 SEEN /lpf (0-5)
[2018-08-07 23:05] LABS: Red Blood Cells-Urine 0-5 SEEN /hpf (0-5); White Blood Cells 0-5 SEEN /hpf (0-5)
[2018-08-07 23:16] LABS: Bedside Glucose 83 mg/dL (70-110)
[2018-08-07 23:34] LABS: Hemoglobin 9.2 g/dl (12.0-15.0); Mean Corp Hgb Conc 30.7 g/gl (32-36); Mean Corpuscular Hgb 32.2 pg (27.0-32.0); Mean Corpuscular Volume 104.9 fL (81-99); Mean Platelet Vol. 9.9 fl (6.2-12.0); Platelet Count 163 K/mm3 (150-450); RBC Distribution Width CV 16.3 % (11.6-14.6); RBC Distribution Width SD 60.2 fl (35.1-43.9); Red Blood Count 2.86 M/mm3 (4.2-5.4); White Blood Count 6.1 K/mm3 (4.4-11.0)
[2018-08-07 23:35] LABS: Scan Indicated on CBC? Y/N NO
[2018-08-08 00:05] VITALS: BP 156/99; PULSE 79; RESP 12; O2SAT 99
[2018-08-08 00:54] LABS: Anion Gap 12 (5-15); BUN 74 mg/dL (7-18); BUN/Creat Ratio 7.9 RATIO (10-20); Calcium,Total 8.7 mg/dL (8.5-10.1); Chloride 104 mmol/L (98-107); Creatinine, Serum 9.42 mg/dL (0.55-1.02); EST Glomerular Filtration Rate 5 mL/min (>60); Est Glom Filt Rate - Afr Amer 6 mL/min (>60); Estimated Creatinine Clearance 6.51 ml/min; Glucose 101 mg/dL (74-106); Potassium 4.4 mmol/L (3.5-5.1); Sodium Level 140 mmol/L (136-145)
--- NOTE | 2018-08-08 01:56 | ED.DEP ---
ED Disposition - Plan for ED Patient: Disposition: Home or Assisted Living Chief Complaint: Unresponsive Instructions: [facility] Referrals: Mitchell Bowen Chi, MD [Primary Care Provider] -
[2018-08-08 01:58] VITALS: BP 150/96; PULSE 94; RESP 12; O2SAT 99
== END 2018-08-08 02:11 | disposition home or self-care (01) ==
PROVIDERS: Emergency Provider Emergency Medicine; Family Provider Family Medicine Geriatric Medicine; PCP Family Medicine Geriatric Medicine
DX: N19 Unspecified kidney failure (principal); E66.9 Obesity, unspecified; E11.9 Type 2 diabetes mellitus without complications; Z99.2 Dependence on renal dialysis; G47.419 Narcolepsy without cataplexy
CPT/HCPCS: 80048; 81001; 82962; 85027; 99285; A4216

== ENCOUNTER 2018-08-12 15:19 | Inpatient (IN) | payer MEDICARE, MEDICAID, SELFPAY ==
[2018-08-12] VITALS (11 sets, daily range): BP systolic 165–217; BP diastolic 92–109; PULSE 76–97; RESP 7–12; TEMP 36.3–36.8; O2SAT 97–100; BMI 297.9; BMI 28.4; BMI 28.7
[2018-08-12 15:36] LABS: Bedside Glucose 70 mg/dL (70-110)
--- NOTE | 2018-08-12 15:45 | CT_ITS ---
STUDY: CT BRAIN WITHOUT CONTRAST REASON FOR EXAM: Female, 47 years old. Altered level of consciousness. RADIATION DOSAGE (If Supplied By Facility): CTDIvol = ( 44.99 ) mGy, DLP = ( 745.49 ) mGycm TECHNIQUE: Transaxial CT imaging of the brain was performed without administration of intravenous contrast material. Individualized dose optimization techniques were used for this CT. COMPARISON: Noncontrast CT brain September 27, 2017 FINDINGS: There is residual thickening in the midline upper frontal scalp, near a site of prior swelling/cephalhematoma. There are too numerous to count punctate calcific densities in the frontal and subcutaneous tissues. Normal calvarium. Normal size ventricles and extra-axial spaces for the patient's age. Normal white matter tracts of the cerebral hemispheres. Normal basal ganglia and thalami. Normal brainstem. Normal cerebellum. Mild atherosclerotic plaquing of the cavernous segments of the bilateral internal carotid arteries. There is no intracranial hemorrhage. There are no findings of an acute ischemic infarction. Stable borderline expansile soft tissue density in the anterior right ethmoid sinus is contiguous with the opacified right frontal sinus, suggesting mucocele or polyp. Patient has undergone prior medial wall antrectomies and resection of the floors of the ethmoid air cells. The moderate mucoperiosteal thickening of the bilateral maxillary sinuses on previous exam has resolved. CT/Brain/Head without Contrast IMPRESSION: 1. No acute intracranial pathology. 2. Stable borderline expansile polyp or mucocele in the anterior right ethmoid sinus, contiguous with the opacified right frontal sinus. Changes of prior medial wall antrectomies and resection of the ethmoid sinus floors again noted. The moderate bilateral mucoperiosteal thickening of the maxillary sinuses on prior study has cleared. Electronically Signed: Richardson Sky MD at 16:47 EST , Service support ,
--- NOTE | 2018-08-12 15:45 | EKG12_ITS ---
Test Reason : ALT LOC Blood Pressure : / mmHG Vent. Rate : 079 BPM Atrial Rate : 079 BPM P-R Int : 142 ms QRS Dur : 084 ms QT Int : 428 ms P-R-T Axes : 073 044 067 degrees QTc Int : 490 ms Normal sinus rhythm Prolonged QT Abnormal ECG Confirmed by DALE GARCIA, ISABELA ([id number]), food editor CESAR SIMEON ([id number] on 08/16/2018 3:43:46 PM Referred By: [email or web address] Confirmed By:ISABELA HUNTER MD
--- NOTE | 2018-08-12 15:47 | CT_ITS ---
STUDY: CT CERVICAL SPINE WITHOUT CONTRAST REASON FOR EXAM: Female, 47 years old. Altered level of consciousness, fall. RADIATION DOSAGE (If Supplied By Facility): CTDIvol = ( 23.63 ) mGy, DLP = ( 488.42 ) mGycm TECHNIQUE: High resolution transaxial imaging was performed without contrast material. Sagittal and coronal images were reconstructed. Individualized dose optimization techniques were used for this CT. COMPARISON: CT cervical spine September 27, 2017. FINDINGS: Normal craniovertebral junction. There are degenerative changes of the anterior atlantoaxial articulation. Normal odontoid process. There is straightening of the normal cervical lordosis. Stable well-corticated central depression of the superior T2 vertebral endplate consistent with a benign Schmorl's node. No acute fracture of the cervical vertebral bodies and posterior osseous elements. C2-3: Normal endplates. Normal disc height and morphology. Normal bilateral facet articulations. Normal central canal and intervertebral neuroforamina. C3-4: Mild right posterolateral endplate spurring and early left posterolateral degenerative endplate lipping. Normal disc height and morphology. Early degenerative arthrosis of the left facet articulation. Normal central canal and intervertebral neuroforamina. C4-5: Bilateral posterolateral endplate spurring. Mild disc height narrowing. Normal central canal. Mild osseous encroachment on the left intervertebral neuroforamen. C5-6: Anterior endplate spurring and right posterior lateral endplate osteophyte. Moderate disc narrowing. Early degenerative arthrosis of the left facet articulation. Normal central canal. Mild osseous encroachment on the bilateral intervertebral neuroforamina. C6-7: Early anterior endplate spurring and posterior lateral degenerative endplate lipping. Normal disc height and morphology. Mild degenerative narrowing of the left facet joint. Normal central canal and intervertebral neuroforamina. C7-T1: Anterior T1 endplate spurring extends on the anterior disc margin. Normal disc height and morphology. Mild anterior particular spurring of the left facet joint. Normal central canal. Slight osseous encroachment on the left intervertebral neuroforamina. Normal visualized soft tissue structures. CT/Spine Cervical without Contras IMPRESSION: 1. No acute fracture of the cervical spine. 2. Minor multilevel degenerative changes, as described above. Electronically Signed: Richardson Sky MD at 16:54 EST , Service support ,
[2018-08-12] MEDS: 0.9% Normal Saline 1,000 ML 1000 ML IV (15:50)
--- NOTE | 2018-08-12 15:50 | RAD_ITS ---
STUDY: X-RAY CHEST REASON FOR EXAM: Female, 47 years old. Altered level of consciousness. TECHNIQUE: Single AP portable semierect view of the chest. COMPARISON: Portable AP upright chest x-ray February 01, 2018. FINDINGS: Left subclavian MediPort has been removed since prior exam. Dual-lumen tunneled right chest wall hemodialysis catheter is unchanged. The lungs are under expanded and there is subsegmental crowding in the left base. There is no demonstrated pleural abnormality. Normal size heart. Normal mediastinum when allowing for crowding. Normal mlaorie. Normal visualized pulmonary arteries. Normal visualized aortic arch and descending thoracic aorta. Normal visualized thoracic spine. Normal visualized ribs, clavicles, and shoulders. There is no demonstrated abnormality of the visualized soft tissue structures of the upper abdomen. RAD/Chest 1 View (Portable) IMPRESSION: 1. Suboptimal inspiratory effort with minor left base crowding. 2. Right chest wall dialysis catheter unchanged. The left subclavian MediPort seen on prior study has been removed. Electronically Signed: Richardson Sky MD at 16:21 EST , Service support ,
[2018-08-12 16:10] LABS: Absolute Neutrophil Count 4.9 X10^3/uL (2.0-7.7); Basophil# 0.01 X10^3/uL; Basophil% 0.1 % (0-1); Eosinophil# 0.17 X10^3/uL; Eosinophils% 2.5 % (0-5); Hemoglobin 10.9 g/dl (12.0-15.0); Lymphocyte % 20.2 % (19-41); Mean Corp Hgb Conc 31.1 g/gl (32-36); Mean Corpuscular Hgb 31.3 pg (27.0-32.0); Mean Corpuscular Volume 100.6 fL (81-99); Mean Platelet Vol. 9.9 fl (6.2-12.0); Monocyte# 0.46 X10^3/uL; Monocyte% 6.6 % (0-10); Neutrophil # 4.86 X10^3/uL (2.7-7.7); Neutrophil % 70.3 % (47-70); POSITIVE COUNT NO; POSITIVE DIFFERENTIAL NO; POSITIVE MORPHOLOGY NO; Platelet Count 197 K/mm3 (150-450); RBC Distribution Width CV 16.2 % (11.6-14.6); RBC Distribution Width SD 58.6 fl (35.1-43.9); Red Blood Count 3.48 M/mm3 (4.2-5.4); White Blood Count 6.9 K/mm3 (4.4-11.0)
--- NOTE | 2018-08-12 16:33 | ED.RN ---
Took critical lab value of creatinine 8.09
[2018-08-12 16:34] LABS: Anion Gap 9 (5-15); BUN 57 mg/dL (7-18); Calcium,Total 9.6 mg/dL (8.5-10.1); Chloride 108 mmol/L (98-107); Creatinine, Serum 8.09 mg/dL (0.55-1.02); EST Glomerular Filtration Rate 6 mL/min (>60); Est Glom Filt Rate - Afr Amer 7 mL/min (>60); Estimated Creatinine Clearance 6.95 ml/min; Glucose 89 mg/dL (74-106); Lactic Acid 0.8 mmol/L (0.4-2.0); Potassium 4.5 mmol/L (3.5-5.1); Sodium Level 145 mmol/L (136-145)
[2018-08-12 16:36] LABS: CPK Total, Creatine Kinase 118 U/L (26-192)
[2018-08-12 16:51] LABS: Base Excess 2 mmol/L (-2 to +2); Bicarbonate 27.1 mmol/L (22-26); Blood Gas Specimen Type ART; O2 Delivery Device Nasal Can; PO2 120 mmHG (75-100); SITE L Brachial; SO2 99 % (95-99); Time Given 1640; Total Carbon Dioxide 29 mmol/L; pCO2 46.7 mmHg (35-45); pH 7.37 (7.35-7.45)
[2018-08-12 16:58] LABS: Amphetamine Urine VISTA NEGATIVE (<1000 ng/mL); Barbiturate Urine VISTA NEGATIVE (< 200 ng/mL); Benzodiazepine Urine VISTA NEGATIVE (< 200 ng/mL); Cocaine Urine VISTA NEGATIVE (< 300 ng/mL); Ecstacy Urine VISTA NEGATIVE (< 500 ng/mL); Methadone Urine VISTA NEGATIVE (< 300 ng/mL); PCP Urine VISTA NEGATIVE (< 25 ng/mL); THC Urine VISTA NEGATIVE (< 50 ng/mL); Vista UDS pH Range 7
--- NOTE | 2018-08-12 17:15 | ED.VISSUMM ---
- ER Visit Summary Date of Service: 08/12/18 Chief Complaint: [Mental status change] History of Present Illness: The patient is a 47 F [presents to the emergency department with mental status change. Patient's brother apparently dropped off the emergency department and left. Brother told nursing staff that his mother had called stating that the patient was not feeling well and when he got home he found her on the floor. Patient was brought to the ER for evaluation. On arrival patient does not give much information and is a poor historian. She does state that she has a headache when asked and also some neck pain. Patient is not sure how she wound up on the floor. She denies any abdominal pain or chest pain. Patient has had prior similar episodes in the past of mental status change. She has a history of narcolepsy. Patient with history of end-stage renal disease and she tells me that she missed her dialysis 2 days ago. Patient also with history of SLE as well as colitis, leukopenia, degenerative disc disease, and hypertension.] Physical Examination: [HEENT-PERRLA, EOMI. Cranial nerves II through XII grossly intact. TMs clear. Mucous membranes moist. No adenopathy. Patient generally appears edematous. Patient keeps her eyes closed. Cardiovascular-regular rate and rhythm without murmur or ectopy Lungs-clear to auscultation, chest wall stable without crepitus or subcu emphysema Abdomen-normoactive bowel sounds, soft, nontender, no rebound or rigidity, no peritoneal signs. Neuro exam-no focal weakness noted as she does move all 4 extremities. Extremities-intact ?4, normal range of motion, normal pulses, atraumatic] Test Results: [CT scan of the brain without contrast showed chronic changes otherwise nothing acute. CT C-spine showed no fractures. CBC with differential showed white count 6.9, hemoglobin 10.9, hematocrit 35, platelets 197. Chemistries unremarkable. BUN was 57 and creatinine 8.09. Troponin 0.024. Lactate 0.8. ABG showed a pH of 7.37 with a CO2 of 47 bicarb 27 and satting 99%. Chest x-ray showed nothing acute.] Emergency Department Course and Treatment: [Patient had an IV line established she was given normal saline at 125 cc an hour. Patient continues to be perseverating somewhat and not appropriate in conversation. Patient thought it was 2003.] Treatment Plan: [Admit for further workup and evaluation] Disposition: [Admit] Impression: [Mental status change Chronic renal failure] This note was generated with [employer] dictation software. It may contain incorrect words, spelling, and punctuation that were not noted in review of the chart prior to signing ED Disposition - Plan for ED Patient: Chief Complaint: Alt LOC Referrals: Mitchell Bowen Chi, MD [Primary Care Provider] -
[2018-08-12] MEDS: 0.9% Normal Saline 1,000 ML 150 ML IV (17:19)
[2018-08-12] MEDS: hydrALAZINE 20 MG/ML Vial 5 MG IV (17:20)
--- NOTE | 2018-08-12 17:28 | NURSING ---
[facility] MENTAL STATUS CHANGE
--- NOTE | 2018-08-12 18:33 | PCM.HP.STD ---
Problem List (1) Encephalopathy acute Status: Acute History of Present Illness Date of Admission: 08/12/18 Chief Complaint: change in mental status The patient is a 47 year old F brought in by family for change in mental status. Patient was brought in by family who abruptly left patient was found down and brought in. Patient underwent a workup including CT of the head and neck which were unremarkable. Patient continued to be encephalopathic. Patient unable to provide any history. Drug screen was negative in the emergency room but patient does receive a prescription for lorazepam, last prescription was filled on July 12. Patient be admitted for further stabilization and encephalopathy. [] Past Medical History Past Medical History (Chronic Problems): Chronic Problems (Last Reviewed 07/28/18 @ 13:13 by Gabriella Mansfield) Nonrheumatic mitral (valve) insufficiency (Chronic) Secondary pulmonary arterial hypertension (Chronic) Non-rheumatic tricuspid valve insufficiency (Chronic) End stage renal disease (Chronic) Chronic anemia (Chronic) Hypertension (Chronic) Narcolepsy (Chronic) Lupus nephritis (Chronic) Status post kidney and liver biopsy (fatty liver) Degenerative disc disease, cervical (Chronic) Cervical spondylosis (Chronic) Diabetes mellitus, type II (Chronic) SLE (systemic lupus erythematosus) (Chronic) Medical History: Medical History (Last Reviewed 08/12/18 @ 18:35 by Javi Sanchez DO) Nonrheumatic mitral (valve) insufficiency (Chronic) I34.0 Secondary pulmonary arterial hypertension (Chronic) I27.21 Non-rheumatic tricuspid valve insufficiency (Chronic) I36.1 End stage renal disease (Chronic) N18.6 Problem with dialysis access (Acute) T82.898A Chronic anemia (Chronic) D64.9 Hypertension (Chronic) I10 Narcolepsy (Chronic) G47.419 Lupus nephritis (Chronic) M32.14 Status post kidney and liver biopsy (fatty liver) Degenerative disc disease, cervical (Chronic) M50.30 Cervical spondylosis (Chronic) M47.812 Colitis (Acute) Leukopenia (Acute) D72.819 Diabetes mellitus, type II (Chronic) E11.9 SLE (systemic lupus erythematosus) (Chronic) M32.9 Acute renal failure (Resolved) Chronic kidney disease (Resolved) N18.9 Dehydration with hyponatremia (Resolved) E87.1 Hyperkalemia (Resolved) E87.5 Unresponsiveness (Resolved) R41.89 Allergies LONG Inhibitors Allergy (Verified 08/07/18 22:06) Angioedema lisinopril Allergy (Verified 08/07/18 22:06) Angioedema Sulfa (Sulfonamide Antibiotics) Allergy (Verified 08/07/18 22:06) Rash sulfamethoxazole [From Bactrim] Allergy (Verified 08/07/18 22:06) Rash trimethoprim [From Bactrim] Allergy (Verified 08/07/18 22:06) Rash Angioderm Adverse Reaction (Unknown, Uncoded 07/27/18 11:40) Unknown Home Medications: Ambulatory Orders Medication Instructions Recorded Duloxetine Hcl [Cymbalta] 120 mg PO DAILY 10/01/16 Hydroxychloroquine [Plaquenil] 200 mg PO BIDCM 10/01/16 Linagliptin [Tradjenta] 5 mg PO DAILY 10/01/16 Montelukast [Singulair] 10 mg PO QHS 10/01/16 Acyclovir [Zovirax] 400 mg PO TID PRN 10/26/16 Ergocalciferol [Vitamin D] 1.25 cap PO QMONTH 01/21/17 Amlactin Ultra Body Cream 1 applic TOPICAL DAILY PRN 02/17/17 Sevelamer Carbonate 2,400 mg PO TID 12/09/17 metoprolol tartrate 25 mg tablet 25 mg PO BID 01/11/18 prednisone 10 mg tablet 5 mg PO DAILYCM tab 01/11/18 Acetaminophen [Tylenol Extra 500 tab BID PRN PRN MDD 1000 01/20/18 Strength] Atorvastatin Calcium [Lipitor] 20 mg PO QHS 01/20/18 Baclofen [Lioresal] 10 mg PO TID 01/20/18 Lorazepam [Ativan] 1 mg PO BID 01/20/18 Ondansetron HCl [Zofran] 4 mg PO PRN PRN 01/20/18 Pregabalin [Lyrica] 50 mg PO BID 01/20/18 calcitriol 0.25 mcg capsule 0.25 mcg PO ONCE 05/12/18 clindamycin 1 %-benzoyl peroxide 5 1 applic TOPICAL DAILY 05/12/18 % topical gel dextroamphetamine-amphetamine ER 15 mg PO BID 05/12/18 10 mg 24hr capsule,extend release famotidine 40 mg tablet 40 mg PO DAILY 05/12/18 fluticasone 50 mcg/actuation nasal 2 spray INTRANASAL DAILY 05/12/18 spray,suspension cetirizine 10 mg capsule 10 mg PO DAILY 07/28/18 cyclosporine 0.05 % eye drops in a 1 drp OPHTHALMIC Q12H 07/28/18 dropperette multivitamin tablet 1 tab PO DAILY 07/28/18 Surgical History: Surgical History (Last Reviewed 08/12/18 @ 18:35 by Javi Sanchez DO) History of esophagogastroduodenoscopy (EGD) Z98.890 Presence of surgically created arteriovenous shunt for hemodialysis Onset Date: ~11/2017 Z99.2 S/P colonoscopy Z98.890 S/P lymph node biopsy Z98.890 S/P nasal polypectomy Z98.890 Status post carpal tunnel release Z98.890 Status post insertion of dialysis catheter Z95.828, Z99.2 Status post total hip replacement, bilateral Z96.643 port removed Surgical History: - Psychiatric History: Depression 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 Smoking Status: Unknown if ever smoked - *Family History Maternal Family History: Family History (Last Reviewed 08/12/18 @ 18:36 by Javi Sanchez DO) Mother Hypertension Kidney disease ALS (amyotrophic lateral sclerosis) Father Heart disease Hypertension Kidney disease Diabetes History Items: Diabetes, High Cholesterol, Heart Disease, Hypertension, Renal Disease, - Paternal Family History: Family History (Last Reviewed 08/12/18 @ 18:36 by Javi Sanchez DO) Mother Hypertension Kidney disease ALS (amyotrophic lateral sclerosis) Father Heart disease Hypertension Kidney disease Diabetes History Items: Diabetes, High Cholesterol, Heart Disease, Hypertension, Renal Disease Sibling Family History: Family History (Last Reviewed 08/12/18 @ 18:36 by Javi Sanchez DO) Mother Hypertension Kidney disease ALS (amyotrophic lateral sclerosis) Father Heart disease Hypertension Kidney disease Diabetes History Items: Diabetes Review of Systems Comment: Unable to obtain new social, past medical, family histories because of confusion. Unable to obtain a review of systems because of confusion. VTE Information - Inpt Only VTE Present on Admission: No VTE Pharm Prophylaxis ordered?: Yes Patient Problems: Active and Suspected Problems (Last Reviewed 07/28/18 @ 13:13 by Gabriella Mansfield) Encephalopathy acute (Acute) - Physical Exam General: Confused, - - Somnolent. Does not awake to noxious stimuli. HEENT: PERRLA, - - Proptosis. Oral: No Gingival or Mucosal Lesions/ Ulcerations, Dry Mucosa Neck: No Nodes, Thyroid Normal Size and Texture Lungs: Clear to auscultation, Normal air movement, No rhonchi, No wheeze Cardiovascular: Regular rate, Regular Rhythm, Normal S1, Normal S2, No murmurs Abdomen: Bowel Sounds Present, Soft, Non Tender, Non-Distended, No Hepato-splenomegaly Extremities: No Calf Tenderness, Edema - Some subtle edema of the upper extremities. No lower extremity edema. Skin: - - Some discoloration patella bilaterally. Musculoskeletal: No Tenderness to Palpation of Joints or Extremities, No Muscle Wasting Neurological: - - No clonus. DTRs are 1 out of 4 in the patellar reflexes bilaterally Vital Signs Temp Pulse Resp BP Pulse Ox 36.3 C L 86 11 L 196/109 H 100 08/12/18 15:20 08/12/18 17:37 08/12/18 17:37 08/12/18 17:37 08/12/18 17:37 Oxygen Flow Rate (L/min) 2 Oxygen Delivery Method Nasal Cannula Weight: 70.6 kg Body Mass Index (BMI) 28.4 Finger Stick Blood Glucose 70 Laboratory Tests Past 24 Hrs 08/12/18 08/12/18 08/12/18 16:00 16:00 16:00 WBC 6.9 RBC 3.48 L Hgb 10.9 L Hct 35.0 L MCV 100.6 H MCH 31.3 MCHC 31.1 L RDW 16.2 H RDW Differential 58.6 H Plt Count 197 MPV 9.9 Immature Gran % (Auto) 0.300 Neut % (Auto) 70.3 H Lymph % (Auto) 20.2 [place] % (Auto) 6.6 Eos % (Auto) 2.5 Baso % (Auto) 0.1 Absolute Neuts (auto) 4.9 Absolute Lymphs (auto) 1.40 Total Counted Not Reportable Specimen Type Sample Site pH Bicarbonate Actual POC Total CO2 Base Excess O2 Saturation ABG pCO2 ABG pO2 Romeo Test O2 Delivery Device Liter Flow Blood Gas Notified Whom Blood Gas Notified Time Sodium 145 Potassium 4.5 Chloride 108 H Carbon Dioxide 28.0 Anion Gap 9 BUN 57 H Creatinine 8.09 H* Estim Creat Clear Calc 6.95 Est GFR (MDRD) Af Amer 7 L Est GFR (MDRD) Non-Af 6 L BUN/Creatinine Ratio 7.0 L Glucose 89 Lactic Acid 0.8 Calcium 9.6 Ammonia Total Creatine Kinase Troponin I 0.024 Urine Opiates Screen Urine Methadone Screen Ur Barbiturates Screen Ur Phencyclidine Scrn Ur Amphetamines Screen U Methamphetamin-MDMA U Benzodiazepines Scrn Urine Cocaine Screen U Cannabinoids Screen Ur Drug Screen Comment 08/12/18 08/12/18 08/12/18 16:00 16:00 16:15 WBC RBC Hgb Hct MCV MCH MCHC RDW RDW Differential Plt Count MPV Immature Gran % (Auto) Neut % (Auto) Lymph % (Auto) [place] % (Auto) Eos % (Auto) Baso % (Auto) Absolute Neuts (auto) Absolute Lymphs (auto) Total Counted Specimen Type Sample Site pH Bicarbonate Actual POC Total CO2 Base Excess O2 Saturation ABG pCO2 ABG pO2 Romeo Test O2 Delivery Device Liter Flow Blood Gas Notified Whom Blood Gas Notified Time Sodium Potassium Chloride Carbon Dioxide Anion Gap BUN Creatinine Estim Creat Clear Calc Est GFR (MDRD) Af Amer Est GFR (MDRD) Non-Af BUN/Creatinine Ratio Glucose Lactic Acid Calcium Ammonia 18.0 Total Creatine Kinase 118 Troponin I Urine Opiates Screen NEGATIVE Urine Methadone Screen NEGATIVE Ur Barbiturates Screen NEGATIVE Ur Phencyclidine Scrn NEGATIVE Ur Amphetamines Screen NEGATIVE U Methamphetamin-MDMA NEGATIVE U Benzodiazepines Scrn NEGATIVE Urine Cocaine Screen NEGATIVE U Cannabinoids Screen NEGATIVE Ur Drug Screen Comment 08/12/18 16:44 WBC RBC Hgb Hct MCV MCH MCHC RDW RDW Differential Plt Count MPV Immature Gran % (Auto) Neut % (Auto) Lymph % (Auto) [place] % (Auto) Eos % (Auto) Baso % (Auto) Absolute Neuts (auto) Absolute Lymphs (auto) Total Counted Specimen Type ART Sample Site L Brachial pH 7.37 Bicarbonate Actual 27.1 H POC Total CO2 29 Base Excess 2 O2 Saturation 99 ABG pCO2 46.7 H ABG pO2 120 H Romeo Test NA O2 Delivery Device Nasal Can Liter Flow 2.0 Blood Gas Notified Whom ED Blood Gas Notified Time 1640 Sodium Potassium Chloride Carbon Dioxide Anion Gap BUN Creatinine Estim Creat Clear Calc Est GFR (MDRD) Af Amer Est GFR (MDRD) Non-Af BUN/Creatinine Ratio Glucose Lactic Acid Calcium Ammonia Total Creatine Kinase Troponin I Urine Opiates Screen Urine Methadone Screen Ur Barbiturates Screen Ur Phencyclidine Scrn Ur Amphetamines Screen U Methamphetamin-MDMA U Benzodiazepines Scrn Urine Cocaine Screen U Cannabinoids Screen Ur Drug Screen Comment POC Glucose 08/12/18 15:26 POC Glucose 70 Clinical Impression(s) from Imaging Studies Brain CT 08/12/18 15:45 IMPRESSION: 1. No acute intracranial pathology. 2. Stable borderline expansile polyp or mucocele in the anterior right ethmoid sinus, contiguous with the opacified right frontal sinus. Changes of prior medial wall antrectomies and resection of the ethmoid sinus floors again noted. The moderate bilateral mucoperiosteal thickening of the maxillary sinuses on prior study has cleared. Electronically Signed: Richardson Sky MD at 16:47 EST , Service support , Cervical Spine CT 08/12/18 15:47 IMPRESSION: 1. No acute fracture of the cervical spine. 2. Minor multilevel degenerative changes, as described above. Electronically Signed: Richardson Sky MD at 16:54 EST , Service support , Chest X-Ray 08/12/18 15:50 IMPRESSION: 1. Suboptimal inspiratory effort with minor left base crowding. 2. Right chest wall dialysis catheter unchanged. The left subclavian MediPort seen on prior study has been removed. Electronically Signed: Richardson Sky MD at 16:21 EST , Service support , Assessment/Plan All Active Problems (Last Reviewed 07/28/18 @ 13:13 by Gabriella Mansfield) Encephalopathy acute (Acute) Postmenopausal bleeding (Acute) Problem with dialysis access (Acute) Segmental and somatic dysfunction of lumbar region (Acute) Segmental and somatic dysfunction of thoracic region (Acute) Segmental and somatic dysfunction of cervical region (Acute) Preop cardiovascular exam (Acute) Problem with dialysis access (Acute) Colitis (Acute) Leukopenia (Acute) Acute renal failure (Resolved) Chronic kidney disease (Resolved) Dehydration with hyponatremia (Resolved) Hyperkalemia (Resolved) Unresponsiveness (Resolved) 1. Encephalopathy I suspect it is a this is metabolic but cannot rule out other processes at this time Ammonia is normal Drug screen is normal Evaluate for seizure with an MRI and EEG. Question if there may be some evidence of benzo withdrawal seizure and prolonged postictal. Drug screen is negative for benzodiazepines of the 30 tablets of lorazepam on July 12. Hold potentiating medications 2. End-stage renal disease Patient's creatinine is abnormal but the rest of her panel does not strike me as being uremic Nephrology on consultation Patient apparently missed her dialysis sessions this week. 3. DVT prophylaxis with subcu heparin Code Visit Inpatient E&M: 66821 Init Hosp L3
--- NOTE | 2018-08-12 18:38 | HP.PCM_ITS ---
Problem List (1) Encephalopathy acute Status: Acute History of Present Illness Date of Admission: 08/12/18 Chief Complaint: change in mental status The patient is a 47 year old F brought in by family for change in mental status. Patient was brought in by family who abruptly left patient was found down and brought in. Patient underwent a workup including CT of the head and neck which were unremarkable. Patient continued to be encephalopathic. Patient unable to provide any history. Drug screen was negative in the emergency room but patient does receive a prescription for lorazepam, last prescription was filled on July 12. Patient be admitted for further stabilization and encephalopathy. [] Past Medical History Past Medical History (Chronic Problems): Chronic Problems (Last Reviewed 07/28/18 @ 13:13 by Gabriella Mansfield) Nonrheumatic mitral (valve) insufficiency (Chronic) Secondary pulmonary arterial hypertension (Chronic) Non-rheumatic tricuspid valve insufficiency (Chronic) End stage renal disease (Chronic) Chronic anemia (Chronic) Hypertension (Chronic) Narcolepsy (Chronic) Lupus nephritis (Chronic) Status post kidney and liver biopsy (fatty liver) Degenerative disc disease, cervical (Chronic) Cervical spondylosis (Chronic) Diabetes mellitus, type II (Chronic) SLE (systemic lupus erythematosus) (Chronic) Medical History: Medical History (Last Reviewed 08/12/18 @ 18:35 by Javi Sanchez DO) Nonrheumatic mitral (valve) insufficiency (Chronic) I34.0 Secondary pulmonary arterial hypertension (Chronic) I27.21 Non-rheumatic tricuspid valve insufficiency (Chronic) I36.1 End stage renal disease (Chronic) N18.6 Problem with dialysis access (Acute) T82.898A Chronic anemia (Chronic) D64.9 Hypertension (Chronic) I10 Narcolepsy (Chronic) G47.419 Lupus nephritis (Chronic) M32.14 Status post kidney and liver biopsy (fatty liver) Degenerative disc disease, cervical (Chronic) M50.30 Cervical spondylosis (Chronic) M47.812 Colitis (Acute) Leukopenia (Acute) D72.819 Diabetes mellitus, type II (Chronic) E11.9 SLE (systemic lupus erythematosus) (Chronic) M32.9 Acute renal failure (Resolved) Chronic kidney disease (Resolved) N18.9 Dehydration with hyponatremia (Resolved) E87.1 Hyperkalemia (Resolved) E87.5 Unresponsiveness (Resolved) R41.89 Allergies LONG Inhibitors Allergy (Verified 08/07/18 22:06) Angioedema lisinopril Allergy (Verified 08/07/18 22:06) Angioedema Sulfa (Sulfonamide Antibiotics) Allergy (Verified 08/07/18 22:06) Rash sulfamethoxazole [From Bactrim] Allergy (Verified 08/07/18 22:06) Rash trimethoprim [From Bactrim] Allergy (Verified 08/07/18 22:06) Rash Angioderm Adverse Reaction (Unknown, Uncoded 07/27/18 11:40) Unknown Home Medications: Ambulatory Orders Medication Instructions Recorded Duloxetine Hcl [Cymbalta] 120 mg PO DAILY 10/01/16 Hydroxychloroquine [Plaquenil] 200 mg PO BIDCM 10/01/16 Linagliptin [Tradjenta] 5 mg PO DAILY 10/01/16 Montelukast [Singulair] 10 mg PO QHS 10/01/16 Acyclovir [Zovirax] 400 mg PO TID PRN 10/26/16 Ergocalciferol [Vitamin D] 1.25 cap PO QMONTH 01/21/17 Amlactin Ultra Body Cream 1 applic TOPICAL DAILY PRN 02/17/17 Sevelamer Carbonate 2,400 mg PO TID 12/09/17 metoprolol tartrate 25 mg tablet 25 mg PO BID 01/11/18 prednisone 10 mg tablet 5 mg PO DAILYCM tab 01/11/18 Acetaminophen [Tylenol Extra 500 tab BID PRN PRN MDD 1000 01/20/18 Strength] Atorvastatin Calcium [Lipitor] 20 mg PO QHS 01/20/18 Baclofen [Lioresal] 10 mg PO TID 01/20/18 Lorazepam [Ativan] 1 mg PO BID 01/20/18 Ondansetron HCl [Zofran] 4 mg PO PRN PRN 01/20/18 Pregabalin [Lyrica] 50 mg PO BID 01/20/18 calcitriol 0.25 mcg capsule 0.25 mcg PO ONCE 05/12/18 clindamycin 1 %-benzoyl peroxide 5 1 applic TOPICAL DAILY 05/12/18 % topical gel dextroamphetamine-amphetamine ER 15 mg PO BID 05/12/18 10 mg 24hr capsule,extend release famotidine 40 mg tablet 40 mg PO DAILY 05/12/18 fluticasone 50 mcg/actuation nasal 2 spray INTRANASAL DAILY 05/12/18 spray,suspension cetirizine 10 mg capsule 10 mg PO DAILY 07/28/18 cyclosporine 0.05 % eye drops in a 1 drp OPHTHALMIC Q12H 07/28/18 dropperette multivitamin tablet 1 tab PO DAILY 07/28/18 Surgical History: Surgical History (Last Reviewed 08/12/18 @ 18:35 by Javi Sanchez DO) History of esophagogastroduodenoscopy (EGD) Z98.890 Presence of surgically created arteriovenous shunt for hemodialysis Onset Date: ~11/2017 Z99.2 S/P colonoscopy Z98.890 S/P lymph node biopsy Z98.890 S/P nasal polypectomy Z98.890 Status post carpal tunnel release Z98.890 Status post insertion of dialysis catheter Z95.828, Z99.2 Status post total hip replacement, bilateral Z96.643 port removed Surgical History: - Psychiatric History: Depression 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 Smoking Status: Unknown if ever smoked - *Family History Maternal Family History: Family History (Last Reviewed 08/12/18 @ 18:36 by Javi Sanchez DO) Mother Hypertension Kidney disease ALS (amyotrophic lateral sclerosis) Father Heart disease Hypertension Kidney disease Diabetes History Items: Diabetes, High Cholesterol, Heart Disease, Hypertension, Renal Disease, - Paternal Family History: Family History (Last Reviewed 08/12/18 @ 18:36 by Javi Sanchez DO) Mother Hypertension Kidney disease ALS (amyotrophic lateral sclerosis) Father Heart disease Hypertension Kidney disease Diabetes History Items: Diabetes, High Cholesterol, Heart Disease, Hypertension, Renal Disease Sibling Family History: Family History (Last Reviewed 08/12/18 @ 18:36 by Javi Sanchez DO) Mother Hypertension Kidney disease ALS (amyotrophic lateral sclerosis) Father Heart disease Hypertension Kidney disease Diabetes History Items: Diabetes Review of Systems Comment: Unable to obtain new social, past medical, family histories because of confusion. Unable to obtain a review of systems because of confusion. VTE Information - Inpt Only VTE Present on Admission: No VTE Pharm Prophylaxis ordered?: Yes Patient Problems: Active and Suspected Problems (Last Reviewed 07/28/18 @ 13:13 by Gabriella Mansfield) Encephalopathy acute (Acute) - Physical Exam General: Confused, - - Somnolent. Does not awake to noxious stimuli. HEENT: PERRLA, - - Proptosis. Oral: No Gingival or Mucosal Lesions/ Ulcerations, Dry Mucosa Neck: No Nodes, Thyroid Normal Size and Texture Lungs: Clear to auscultation, Normal air movement, No rhonchi, No wheeze Cardiovascular: Regular rate, Regular Rhythm, Normal S1, Normal S2, No murmurs Abdomen: Bowel Sounds Present, Soft, Non Tender, Non-Distended, No Hepato- splenomegaly Extremities: No Calf Tenderness, Edema - Some subtle edema of the upper extremities. No lower extremity edema. Skin: - - Some discoloration patella bilaterally. Musculoskeletal: No Tenderness to Palpation of Joints or Extremities, No Muscle Wasting Neurological: - - No clonus. DTRs are 1 out of 4 in the patellar reflexes bilaterally Vital Signs Temp Pulse Resp BP Pulse Ox 36.3 C L 86 11 L 196/109 H 100 08/12/18 15:20 08/12/18 17:37 08/12/18 17:37 08/12/18 17:37 08/12/18 17:37 Oxygen Flow Rate (L/min) 2 Oxygen Delivery Method Nasal Cannula Weight: 70.6 kg Body Mass Index (BMI) 28.4 Finger Stick Blood Glucose 70 Laboratory Tests Past 24 Hrs 08/12/18 08/12/18 08/12/18 16:00 16:00 16:00 WBC 6.9 RBC 3.48 L Hgb 10.9 L Hct 35.0 L MCV 100.6 H MCH 31.3 MCHC 31.1 L RDW 16.2 H RDW Differential 58.6 H Plt Count 197 MPV 9.9 Immature Gran % (Auto) 0.300 Neut % (Auto) 70.3 H Lymph % (Auto) 20.2 [place] % (Auto) 6.6 Eos % (Auto) 2.5 Baso % (Auto) 0.1 Absolute Neuts (auto) 4.9 Absolute Lymphs (auto) 1.40 Total Counted Not Reportable Specimen Type Sample Site pH Bicarbonate Actual POC Total CO2 Base Excess O2 Saturation ABG pCO2 ABG pO2 Romeo Test O2 Delivery Device Liter Flow Blood Gas Notified Whom Blood Gas Notified Time Sodium 145 Potassium 4.5 Chloride 108 H Carbon Dioxide 28.0 Anion Gap 9 BUN 57 H Creatinine 8.09 H* Estim Creat Clear Calc 6.95 Est GFR (MDRD) Af Amer 7 L Est GFR (MDRD) Non-Af 6 L BUN/Creatinine Ratio 7.0 L Glucose 89 Lactic Acid 0.8 Calcium 9.6 Ammonia Total Creatine Kinase Troponin I 0.024 Urine Opiates Screen Urine Methadone Screen Ur Barbiturates Screen Ur Phencyclidine Scrn Ur Amphetamines Screen U Methamphetamin-MDMA U Benzodiazepines Scrn Urine Cocaine Screen U Cannabinoids Screen Ur Drug Screen Comment 08/12/18 08/12/18 08/12/18 16:00 16:00 16:15 WBC RBC Hgb Hct MCV MCH MCHC RDW RDW Differential Plt Count MPV Immature Gran % (Auto) Neut % (Auto) Lymph % (Auto) [place] % (Auto) Eos % (Auto) Baso % (Auto) Absolute Neuts (auto) Absolute Lymphs (auto) Total Counted Specimen Type Sample Site pH Bicarbonate Actual POC Total CO2 Base Excess O2 Saturation ABG pCO2 ABG pO2 [place]o Test O2 Delivery Device Liter Flow Blood Gas Notified Whom Blood Gas Notified Time Sodium Potassium Chloride Carbon Dioxide Anion Gap BUN Creatinine Estim Creat Clear Calc Est GFR (MDRD) Af Amer Est GFR (MDRD) Non-Af BUN/Creatinine Ratio Glucose Lactic Acid Calcium Ammonia 18.0 Total Creatine Kinase 118 Troponin I Urine Opiates Screen NEGATIVE Urine Methadone Screen NEGATIVE Ur Barbiturates Screen NEGATIVE Ur Phencyclidine Scrn NEGATIVE Ur Amphetamines Screen NEGATIVE U Methamphetamin-MDMA NEGATIVE U Benzodiazepines Scrn NEGATIVE Urine Cocaine Screen NEGATIVE U Cannabinoids Screen NEGATIVE Ur Drug Screen Comment 08/12/18 16:44 WBC RBC Hgb Hct MCV MCH MCHC RDW RDW Differential Plt Count MPV Immature Gran % (Auto) Neut % (Auto) Lymph % (Auto) [place] % (Auto) Eos % (Auto) Baso % (Auto) Absolute Neuts (auto) Absolute Lymphs (auto) Total Counted Specimen Type ART Sample Site L Brachial pH 7.37 Bicarbonate Actual 27.1 H POC Total CO2 29 Base Excess 2 O2 Saturation 99 ABG pCO2 46.7 H ABG pO2 120 H Romeo Test NA O2 Delivery Device Nasal Can Liter Flow 2.0 Blood Gas Notified Whom ED Blood Gas Notified Time 1640 Sodium Potassium Chloride Carbon Dioxide Anion Gap BUN Creatinine Estim Creat Clear Calc Est GFR (MDRD) Af Amer Est GFR (MDRD) Non-Af BUN/Creatinine Ratio Glucose Lactic Acid Calcium Ammonia Total Creatine Kinase Troponin I Urine Opiates Screen Urine Methadone Screen Ur Barbiturates Screen Ur Phencyclidine Scrn Ur Amphetamines Screen U Methamphetamin-MDMA U Benzodiazepines Scrn Urine Cocaine Screen U Cannabinoids Screen Ur Drug Screen Comment POC Glucose 08/12/18 15:26 POC Glucose 70 Clinical Impression(s) from Imaging Studies Brain CT 08/12/18 15:45 IMPRESSION: 1. No acute intracranial pathology. 2. Stable borderline expansile polyp or mucocele in the anterior right ethmoid sinus, contiguous with the opacified right frontal sinus. Changes of prior medial wall antrectomies and resection of the ethmoid sinus floors again noted. The moderate bilateral mucoperiosteal thickening of the maxillary sinuses on prior study has cleared. Electronically Signed: Richardson Sky MD at 16:47 EST , Service support , Cervical Spine CT 08/12/18 15:47 IMPRESSION: 1. No acute fracture of the cervical spine. 2. Minor multilevel degenerative changes, as described above. Electronically Signed: Richardson Sky MD at 16:54 EST , Service support , Chest X-Ray 08/12/18 15:50 IMPRESSION: 1. Suboptimal inspiratory effort with minor left base crowding. 2. Right chest wall dialysis catheter unchanged. The left subclavian MediPort seen on prior study has been removed. Electronically Signed: Richardson Sky MD at 16:21 EST , Service support , Assessment/Plan All Active Problems (Last Reviewed 07/28/18 @ 13:13 by Gabriella Mansfield) Encephalopathy acute (Acute) Postmenopausal bleeding (Acute) Problem with dialysis access (Acute) Segmental and somatic dysfunction of lumbar region (Acute) Segmental and somatic dysfunction of thoracic region (Acute) Segmental and somatic dysfunction of cervical region (Acute) Preop cardiovascular exam (Acute) Problem with dialysis access (Acute) Colitis (Acute) Leukopenia (Acute) Acute renal failure (Resolved) Chronic kidney disease (Resolved) Dehydration with hyponatremia (Resolved) Hyperkalemia (Resolved) Unresponsiveness (Resolved) 1. Encephalopathy I suspect it is a this is metabolic but cannot rule out other processes at this time Ammonia is normal Drug screen is normal Evaluate for seizure with an MRI and EEG. Question if there may be some evidence of benzo withdrawal seizure and prolonged postictal. Drug screen is negative for benzodiazepines of the 30 tablets of lorazepam on July 12. Hold potentiating medications 2. End-stage renal disease * Patient's creatinine is abnormal but the rest of her panel does not strike me as being uremic * Nephrology on consultation * Patient apparently missed her dialysis sessions this week. 3. DVT prophylaxis with subcu heparin Code Visit Inpatient E&M: 84067 Init Hosp L3
[2018-08-12] MEDS: Dextrose 50%-Water 25 GM/50 ML DISP.SYRIN IV (19:00)
[2018-08-12 19:01] LABS: Bedside Glucose 56 mg/dL (70-110)
[2018-08-12] MEDS: Dext 5%-0.45% NS 1,000 ML 100 ML IV (19:18)
--- NOTE | 2018-08-12 19:32 | ED.RN ---
spoke with charge out clerk on Med Surg to give report. Then receiving supervisor Martha came to evaluate pt- now awaiting room number on pcu. Dr. Bridges aware and agreeable.
[2018-08-12 19:36] LABS: Bedside Glucose 155 mg/dL (70-110)
[2018-08-12] MEDS: hydrALAZINE 20 MG/ML Vial 10 MG IV (19:46)
--- NOTE | 2018-08-12 20:26 | MRI_ITS ---
STUDY: MRI BRAIN WITHOUT CONTRAST REASON FOR EXAM: Female, 47 years old. C Confusion pt unresponsive. TECHNIQUE: Standardized multiplanar fat and water weighted pulse sequences were obtained. COMPARISON: 08/12/2018 CT of the head FINDINGS: Normal size of the ventricles and extra-axial spaces for the patient's age. Normal white matter tracts of the supratentorial brain. Normal bilateral basal ganglia. Normal thalami. There is no extra-axial fluid accumulation. Normal flow voids within the major intracranial circulation suggesting patency by spin echo criteria. Normal sella turcica, pituitary gland, infundibular stalk, optic chiasm and hypothalamus. Normal tectal plate and pineal gland. Normal midbrain, ana and medulla. Normal cerebellum. Normal basal cisterns. There is mild paranasal sinus disease. MRI/Brain without Contrast IMPRESSION: Unremarkable unenhanced MRI of the brain. Electronically Signed: Eliza Cheek MD at 10:11 EST Tel , Service support ,
--- NOTE | 2018-08-12 21:14 | PCM.PN.BLA ---
Progress Note Patient has RR of 6-8; oxygen saturation 100% on room air. Noted to be hypogylcemic at the ED and was started on D5W. Repeat blood glucose on the floor normal. Noted to have a probable infection on her right antecubital area probably had an intended incision there. Because of her history of narcolepsy will start patient on Ritalin via NG tube and change patient to step down at the PCU. ABG at ED not remarkable. Repeat ABG not remarkable. Will start Clindamycin for probable infection of her left antecubital region. Accucheck every 1 hour x 4.
[2018-08-12 21:16] LABS: Allen Test POS; Base Excess 0 mmol/L (-2 to +2); Bicarbonate 24.1 mmol/L (22-26); Blood Gas Specimen Type ART; O2 Delivery Device Room Air; PO2 93 mmHG (75-100); SITE R Radial; SO2 97 % (95-99); Time Given 2100; Total Carbon Dioxide 25 mmol/L; pCO2 37.4 mmHg (35-45); pH 7.42 (7.35-7.45)
--- NOTE | 2018-08-12 21:21 | PN_ITS ---
Progress Note Patient has RR of 6-8; oxygen saturation 100% on room air. Noted to be hypogylcemic at the ED and was started on D5W. Repeat blood glucose on the floor normal. Noted to have a probable infection on her right antecubital area probably had an intended incision there. Because of her history of narcolepsy will start patient on Ritalin via NG tube a nd change patient to step down at the PCU. ABG at ED not remarkable. Repeat ABG not remarkable. Will start Clindamycin for probable infection of her left antecubital region. Accucheck every 1 hour x 4.
--- NOTE | 2018-08-12 21:40 | RAD_ITS ---
STUDY: X-RAY - ABDOMEN/PELVIS REASON FOR EXAM: Female, 47 years old. NG tube placement TECHNIQUE: Single frontal view COMPARISON: None. FINDINGS: Normal visualized lung bases. There is an unremarkable bowel gas pattern. There is no demonstrated free abdominal air. Nasogastric tube is noted with tip at the GE junction. It needs to be advanced by another 8 to 9 cm into the stomach. Normal soft tissue structures. Normal visualized osseous structures. RAD/Abdomen Single View (Portable) IMPRESSION: Nasogastric tube with tip at the GE junction. It needs to be advanced further by 8 to 9 cm. Electronically Signed: Abiodun Johnson DO at 22:28 EST Tel [phone], Service support ,
[2018-08-12 21:46] LABS: Bedside Glucose 136 mg/dL (70-110)
--- NOTE | 2018-08-12 22:43 | RAD_ITS ---
STUDY: X-RAY - ABDOMEN/PELVIS REASON FOR EXAM: Female, 47 years old. NG tube placement TECHNIQUE: Single frontal view COMPARISON: August 12, 2018 at 21:42 hours. FINDINGS: Normal visualized lung bases. There is an unremarkable bowel gas pattern. There is no demonstrated free abdominal air. Nasogastric tube remains at the GE junction without significant changes in position since the previous study. Normal soft tissue structures. Normal visualized osseous structures. RAD/Abdomen Single View (Portable) IMPRESSION: Nasogastric tube with tip at the GE junction. No significant interval changes. Electronically Signed: Abiodun Johnson DO at 23:26 EST Tel [phone], Service support ,
[2018-08-13] VITALS (26 sets, daily range): BP systolic 76–192; BP diastolic 45–118; PULSE 86–124; RESP 8–21; TEMP 36.4–37.4; O2SAT 97–100
[2018-08-13 00:05] LABS: Bedside Glucose 99 mg/dL (70-110)
[2018-08-13 00:06] LABS: Bedside Glucose 104 mg/dL (70-110)
--- NOTE | 2018-08-13 00:20 | RAD_ITS ---
STUDY: X-RAY - ABDOMEN/PELVIS REASON FOR EXAM: Female, 47 years old. NG tube placement TECHNIQUE: 1 view COMPARISON: None. FINDINGS: The tip of the nasogastric tube is in the stomach. A central line has its tip in the distal end of the superior vena cava. There is no bowel distention. Electronically Signed: Guillermo Karimi MD at 2:38 EST Tel , Service support , RAD/Abdomen Single View (Portable)
[2018-08-13 00:46] LABS: Bedside Glucose 92 mg/dL (70-110)
[2018-08-13] MEDS: 0.9% NaCl Peripheral Flush Adult/Peds IV ×3 (01:31→14:40)
[2018-08-13] MEDS: hydrALAZINE 20 MG/ML Vial 5 MG IV ×2 (01:31→06:09)
[2018-08-13] MEDS: Dextrose 50%-Water 25 GM/50 ML DISP.SYRIN IV ×2 (01:31→06:42)
[2018-08-13] MEDS: Heparin Injection (Vial) 5,000 UNIT/ML VIAL 5000 UNIT SC ×2 (01:36→21:14)
--- NOTE | 2018-08-13 02:29 | NURSING ---
Called grupo at this time in Xray to verify why KUB results had not returned yet. She will clarify and get them resulted so PO NG tube meds may be given.
[2018-08-13 03:00] LABS: Bedside Glucose 74 mg/dL (70-110)
[2018-08-13 03:01] LABS: Bedside Glucose 127 mg/dL (70-110)
[2018-08-13] MEDS: Metoprolol Tartrate 25 MG Tablet PO ×2 (03:02→14:00)
[2018-08-13] MEDS: Atorvastatin Calcium 20 MG Tablet PO ×2 (03:03→21:14)
[2018-08-13] MEDS: Montelukast 10 MG Tablet PO ×2 (03:03→21:15)
[2018-08-13] MEDS: Methylphenidate HCl 5 MG Tablet 10 MG NG ×2 (03:06→14:01)
[2018-08-13 05:26] LABS: Bedside Glucose 106 mg/dL (70-110)
[2018-08-13 05:26] LABS: Bedside Glucose 83 mg/dL (70-110)
[2018-08-13 06:17] LABS: Absolute Lymphocyte Count 1.35 X10^3/ul (0.83-4.51); Absolute Neutrophil Count 6.9 X10^3/uL (2.0-7.7); Eosinophil# 0.16 X10^3/uL; Eosinophils% 1.7 % (0-5); Hematocrit 34.8 % (37-47); Hemoglobin 10.7 g/dl (12.0-15.0); Lymphocyte # 1.35 X10^3/ul (4.0); Lymphocyte % 14.5 % (19-41); Mean Corp Hgb Conc 30.7 g/gl (32-36); Mean Corpuscular Hgb 30.8 pg (27.0-32.0); Mean Corpuscular Volume 100.3 fL (81-99); Mean Platelet Vol. 9.5 fl (6.2-12.0); Monocyte# 0.94 X10^3/uL; Monocyte% 10.1 % (0-10); Neutrophil # 6.86 X10^3/uL (2.7-7.7); Neutrophil % 73.5 % (47-70); Platelet Count 205 K/mm3 (150-450); RBC Distribution Width CV 16.4 % (11.6-14.6); RBC Distribution Width SD 59.4 fl (35.1-43.9); Red Blood Count 3.47 M/mm3 (4.2-5.4); White Blood Count 9.3 K/mm3 (4.4-11.0)
[2018-08-13 06:18] LABS: POSITIVE COUNT NO; POSITIVE DIFFERENTIAL NO; POSITIVE MORPHOLOGY NO
[2018-08-13 07:42] LABS: Anion Gap 11 (5-15); BUN 59 mg/dL (7-18); BUN/Creat Ratio 7.1 RATIO (10-20); Chloride 110 mmol/L (98-107); Creatinine, Serum 8.36 mg/dL (0.55-1.02); EST Glomerular Filtration Rate 6 mL/min (>60); Est Glom Filt Rate - Afr Amer 7 mL/min (>60); Estimated Creatinine Clearance 6.41 ml/min; Glucose 96 mg/dL (74-106); Potassium 4.7 mmol/L (3.5-5.1); Sodium Level 145 mmol/L (136-145)
[2018-08-13 08:11] LABS: Bedside Glucose 121 mg/dL (70-110)
--- NOTE | 2018-08-13 09:53 | CT_ITS ---
STUDY: ABNORMAL INFECTED WOUND DRAINAGE RIGHT REASON FOR EXAM: Female, 47 years old. RADIATION DOSAGE (If Supplied By Facility): CTDIvol = ( 24.72 ) mGy, DLP = ( 1230.91 ) mGycm. Individualized dose optimization techniques were used for this CT.? TECHNIQUE: Axial images of the right upper extremity were obtained from the right shoulder joint to the wrist. No contrast was administered. This limits the study for evaluation for infection. Sagittal coronal reformatted images are performed. COMPARISON: None. FINDINGS: Within the right chest there is significant edema of the right chest wall and edema in gas in a focal pocket adjacent to the right side internal jugular vein line partially visualized on this study and unclear as to the age of the line. There is edema of the right upper extremity from the right chest wall into the axilla. There is additional right lower extremity edema from the periphery of the triceps muscles to the wrist. There is visualized edema especially in the posterior aspect of the elbow. There surgical clips demonstrated in the soft tissues of the elbow on the lateral side. There are diffuse areas of edema. An antecubital fossa there is a small focus of fluid which is fairly superficial measuring 2.7 x 1.2 cm image #84 which would be readily evaluated with ultrasound. Is mild degenerative change in the elbow joint. There is no visualized fracture. CT/Extremity Upper without Contra IMPRESSION: There is incomplete visualization of pocket of gas formation in and around the age-indeterminate right-sided IJ in the chest recommend dedicated CT scan of the chest if possible obtaining CT scan of the chest and right upper extremity. Consider recent postoperative change and/or infection which is partially visualized on this study. An ultrasound is suggested to evaluate for deep venous thrombosis given that the edema appears to extend from the right chest to the wrist. Additionally there is a pocket of fluid in the antecubital fossa near surgical clips which may represent a focal abscess and/or evolving hematoma in the appropriate clinical setting recommend ultrasound for further evaluation. Electronically Signed: Carolina Becker MD at 17:52 EST Tel , Service support ,
--- NOTE | 2018-08-13 10:00 | PCM.PROGNOTE ---
Patient Problems: Active and Suspected Problems (Last Updated 08/13/18 @ 08:57 by Lele Garcia MD) Encephalopathy acute (Acute) Subjective: Chief complaint: Follow-up after admission for altered mental status/encephalopathy without clear etiology, found to have right elbow infected wound. She is seen and examined. At this time, she is very sleepy, arousable. Upon calling her name, she was able to open her eyes and she was alert and oriented x3. She answers all questions appropriately. She complains of back pain. She denied abdominal pain, nausea or vomiting. She denied chest pain or shortness of breath. She denied cough or sputum production. She was able to follow commands appropriately. She moved all limbs without difficulties. She kept going back to sleep very quick and she was breathing around 10 times per minute. She is afebrile, heart rate has been around 100, blood pressure slightly elevated, pulse ox is maintained on room air. - Physical Exam General: - - Very sleepy, lethargic, easily arousable, following commands appropriately. HEENT: Atraumatic, PERRLA, EOMI, Normocephalic Oral: Moist Mucosa, No Gingival or Mucosal Lesions/ Ulcerations Neck: Supple, No JVD, Negative Carotid Bruits, Trachea Midline, Thyroid Normal Size and Texture Lungs: Clear to auscultation, No rhonchi, No wheeze, No rales, Diminished Cardiovascular: Regular rate, Regular Rhythm, Normal S1, Normal S2, PMI Normal Abdomen: Bowel Sounds Present, Soft, Non Tender, Non-Distended, No Hepato-splenomegaly Extremities: No clubbing, No cyanosis, No edema Skin: No rashes, No breakdown Musculoskeletal: - - Right elbow: Linear open wound on the medial aspect of the right elbow surrounded by erythema and serous drainage, firm to palpation. Lymphatic: No Cervical, Supraclavicular, or Inguinal Adenopathy Neurological: Cranial nerves II-XII grossly intact, Motor Exam 5/5 strength throughout, - - Sleepy, lethargic, encephalopathic. Psych/Mental Status: - - Unable to assess at this time. Vital Signs Temp Pulse Resp BP Pulse Ox 98.3 F 95 12 163/99 H 100 08/13/18 05:00 08/13/18 08:00 08/13/18 08:00 08/13/18 08:00 08/13/18 08:00 Oxygen Flow Rate (L/min) 2 Oxygen Delivery Method Room Air Weight: 156 lb 1.396 oz Body Mass Index (BMI) 28.7 Finger Stick Blood Glucose 155 Intake and Output for Last 24 Hours 08/11/18 08/12/18 08/13/18 23:59 23:59 23:59 Intake Total 515 / 515 Output Total 900 / 900 Balance -385 / -385 Laboratory Tests Past 24 Hrs 08/12/18 08/12/18 08/12/18 16:00 16:00 16:00 WBC 6.9 RBC 3.48 L Hgb 10.9 L Hct 35.0 L MCV 100.6 H MCH 31.3 MCHC 31.1 L RDW 16.2 H RDW Differential 58.6 H Plt Count 197 MPV 9.9 Immature Gran % (Auto) 0.300 Neut % (Auto) 70.3 H Lymph % (Auto) 20.2 [place] % (Auto) 6.6 Eos % (Auto) 2.5 Baso % (Auto) 0.1 Absolute Neuts (auto) 4.9 Absolute Lymphs (auto) 1.40 Total Counted Not Reportable Specimen Type Sample Site pH Bicarbonate Actual POC Total CO2 Base Excess O2 Saturation ABG pCO2 ABG pO2 [place]o Test O2 Delivery Device Liter Flow Blood Gas Notified Whom Blood Gas Notified Time Sodium 145 Potassium 4.5 Chloride 108 H Carbon Dioxide 28.0 Anion Gap 9 BUN 57 H Creatinine 8.09 H* Estim Creat Clear Calc 6.95 Est GFR (MDRD) Af Amer 7 L Est GFR (MDRD) Non-Af 6 L BUN/Creatinine Ratio 7.0 L Glucose 89 Lactic Acid 0.8 Calcium 9.6 Ammonia Total Creatine Kinase Troponin I 0.024 Urine Opiates Screen Urine Methadone Screen Ur Barbiturates Screen Ur Phencyclidine Scrn Ur Amphetamines Screen U Methamphetamin-MDMA U Benzodiazepines Scrn Urine Cocaine Screen U Cannabinoids Screen Ur Drug Screen Comment 08/12/18 08/12/18 08/12/18 16:00 16:00 16:15 WBC RBC Hgb Hct MCV MCH MCHC RDW RDW Differential Plt Count MPV Immature Gran % (Auto) Neut % (Auto) Lymph % (Auto) [place] % (Auto) Eos % (Auto) Baso % (Auto) Absolute Neuts (auto) Absolute Lymphs (auto) Total Counted Specimen Type Sample Site pH Bicarbonate Actual POC Total CO2 Base Excess O2 Saturation ABG pCO2 ABG pO2 [place] Test O2 Delivery Device Liter Flow Blood Gas Notified Whom Blood Gas Notified Time Sodium Potassium Chloride Carbon Dioxide Anion Gap BUN Creatinine Estim Creat Clear Calc Est GFR (MDRD) Af Amer Est GFR (MDRD) Non-Af BUN/Creatinine Ratio Glucose Lactic Acid Calcium Ammonia 18.0 Total Creatine Kinase 118 Troponin I Urine Opiates Screen NEGATIVE Urine Methadone Screen NEGATIVE Ur Barbiturates Screen NEGATIVE Ur Phencyclidine Scrn NEGATIVE Ur Amphetamines Screen NEGATIVE U Methamphetamin-MDMA NEGATIVE U Benzodiazepines Scrn NEGATIVE Urine Cocaine Screen NEGATIVE U Cannabinoids Screen NEGATIVE Ur Drug Screen Comment 08/12/18 08/12/18 08/13/18 16:44 21:12 06:02 WBC 9.3 RBC 3.47 L Hgb 10.7 L Hct 34.8 L MCV 100.3 H MCH 30.8 MCHC 30.7 L RDW 16.4 H RDW Differential 59.4 H Plt Count 205 MPV 9.5 Immature Gran % (Auto) 0.200 Neut % (Auto) 73.5 H Lymph % (Auto) 14.5 L [place] % (Auto) 10.1 H Eos % (Auto) 1.7 Baso % (Auto) 0.0 Absolute Neuts (auto) 6.9 Absolute Lymphs (auto) 1.35 Total Counted Not Reportable Specimen Type ART ART Sample Site L Brachial R Radial pH 7.37 7.42 Bicarbonate Actual 27.1 H 24.1 POC Total CO2 29 25 Base Excess 2 0 O2 Saturation 99 97 ABG pCO2 46.7 H 37.4 ABG pO2 120 H 93 Romeo Test NA POS O2 Delivery Device Nasal Can Room Air Liter Flow 2.0 Blood Gas Notified Whom ED HOSP Blood Gas Notified Time 1640 2100 Sodium Potassium Chloride Carbon Dioxide Anion Gap BUN Creatinine Estim Creat Clear Calc Est GFR (MDRD) Af Amer Est GFR (MDRD) Non-Af BUN/Creatinine Ratio Glucose Lactic Acid Calcium Ammonia Total Creatine Kinase Troponin I Urine Opiates Screen Urine Methadone Screen Ur Barbiturates Screen Ur Phencyclidine Scrn Ur Amphetamines Screen U Methamphetamin-MDMA U Benzodiazepines Scrn Urine Cocaine Screen U Cannabinoids Screen Ur Drug Screen Comment 08/13/18 06:02 WBC RBC Hgb Hct MCV MCH MCHC RDW RDW Differential Plt Count MPV Immature Gran % (Auto) Neut % (Auto) Lymph % (Auto) [place] % (Auto) Eos % (Auto) Baso % (Auto) Absolute Neuts (auto) Absolute Lymphs (auto) Total Counted Specimen Type Sample Site pH Bicarbonate Actual POC Total CO2 Base Excess O2 Saturation ABG pCO2 ABG pO2 [place]o Test O2 Delivery Device Liter Flow Blood Gas Notified Whom Blood Gas Notified Time Sodium 145 Potassium 4.7 Chloride 110 H Carbon Dioxide 24.0 Anion Gap 11 BUN 59 H Creatinine 8.36 H* Estim Creat Clear Calc 6.41 Est GFR (MDRD) Af Amer 7 L Est GFR (MDRD) Non-Af 6 L BUN/Creatinine Ratio 7.1 L Glucose 96 Lactic Acid Calcium 9.0 Ammonia Total Creatine Kinase Troponin I Urine Opiates Screen Urine Methadone Screen Ur Barbiturates Screen Ur Phencyclidine Scrn Ur Amphetamines Screen U Methamphetamin-MDMA U Benzodiazepines Scrn Urine Cocaine Screen U Cannabinoids Screen Ur Drug Screen Comment POC Glucose 08/13/18 08/13/18 08/13/18 08:08 04:01 03:00 POC Glucose 121 H 106 83 08/13/18 08/13/18 08/13/18 02:01 01:10 00:06 POC Glucose 127 H 74 92 08/12/18 08/12/18 08/12/18 23:08 21:58 20:44 POC Glucose 104 99 136 H 08/12/18 08/12/18 08/12/18 19:31 18:53 15:26 POC Glucose 155 H 56 L 70 Clinical Impression(s) from Imaging Studies Brain CT 08/12/18 15:45 IMPRESSION: 1. No acute intracranial pathology. 2. Stable borderline expansile polyp or mucocele in the anterior right ethmoid sinus, contiguous with the opacified right frontal sinus. Changes of prior medial wall antrectomies and resection of the ethmoid sinus floors again noted. The moderate bilateral mucoperiosteal thickening of the maxillary sinuses on prior study has cleared. Electronically Signed: Richardson Sky MD at 16:47 EST , Service support , Cervical Spine CT 08/12/18 15:47 IMPRESSION: 1. No acute fracture of the cervical spine. 2. Minor multilevel degenerative changes, as described above. Electronically Signed: Richardson Sky MD at 16:54 EST , Service support , Chest X-Ray 08/12/18 15:50 IMPRESSION: 1. Suboptimal inspiratory effort with minor left base crowding. 2. Right chest wall dialysis catheter unchanged. The left subclavian MediPort seen on prior study has been removed. Electronically Signed: Richardson Sky MD at 16:21 EST , Service support , KUB X-Ray 08/12/18 21:40 IMPRESSION: Nasogastric tube with tip at the GE junction. It needs to be advanced further by 8 to 9 cm. Electronically Signed: Abiodun Johnson DO at 22:28 EST Tel [phone], Service support , KUB X-Ray 08/12/18 22:43 IMPRESSION: Nasogastric tube with tip at the GE junction. No significant interval changes. Electronically Signed: Abiodun Johnson DO at 23:26 EST Tel [phone], Service support , KUB X-Ray 08/13/18 00:20 Medical Necessity - Tobacco Use Smoking Status: Unknown if ever smoked Assessment/Plan All Active Problems (Last Updated 08/13/18 @ 08:57 by Lele Garcia MD) Encephalopathy acute (Acute) This is a 47 years old female patient presented to the emergency room because of change in mental status, found to have acute encephalopathy probably metabolic, found to have right infected wound/cellulitis. #1 acute encephalopathy: Probably metabolic due to uremic encephalopathy or possibly drug overdose. Her vital signs are stable. She responds to commands with spontaneous eye opening and appropriate response but she goes back to sleep very quickly. CT scan brain without findings. MRI brain showed no acute infarction or hemorrhage. Urine drug screen was negative. Blood alcohol level was low. LFT and ammonia was normal. Serum cortisol was even high. Plan: Aspiration precautions, continue same treatment, hemodialysis today. #2 right elbow cellulitis/infected wound: There is linear laceration on the medial aspect of the right elbow surrounded by erythema with serous drainage and felt to palpation. She was started on IV clindamycin. She is afebrile, no leukocytosis. Plan: Change clindamycin to IV Unasyn, continue cefepime, wound culture, CT scan right upper extremity to rule out abscess. #3 ESRD on hemodialysis: BUN is 59, creatinine is 8.3, potassium is normal. Her altered mental status could be due to uremic encephalopathy as above. Plan for hemodialysis today, nephrology consulted. #4 type 2 diabetes mellitus: At this time, patient will be kept on n.p.o. Plan for Accu-Cheks, sliding scale, resume ADA diet when she is awake, continue Tradjenta when able to eat. #5 SLE/lupus nephritis: Kidney function seems stable. Patient has been on long-term steroids. Plan to continue prednisone, continue Plaquenil, nephrology consult. #6 hypertension: Blood pressure slightly elevated, continue IV hydralazine as needed, continue metoprolol. #7 chronic anemia: Hemoglobin has been around 10-12 g/dL. Admission hemoglobin is 10.7 g/dL, stable at baseline. #8 DVT prophylaxis: Subcu heparin. This note was generated with [employer] dictation software. It may contain incorrect words, spelling, and punctuation that were not noted in checking the note before signing. Code Visit Inpatient E&M: 57344 Subs Hosp L3
--- NOTE | 2018-08-13 10:04 | PN_ITS ---
Patient Problems: Active and Suspected Problems (Last Updated 08/13/18 @ 08:57 by Lele Garcia MD) Encephalopathy acute (Acute) Subjective: Chief complaint: Follow-up after admission for altered mental status/encephalopathy without clear etiology, found to have right elbow infected wound. She is seen and examined. At this time, she is very sleepy, arousable. Upon calling her name, she was able to open her eyes and she was alert and oriented x3. She answers all questions appropriately. She complains of back pain. She denied abdominal pain, nausea or vomiting. She denied chest pain or shortness of breath. She denied cough or sputum production. She was able to follow commands appropriately. She moved all limbs without difficulties. She kept going back to sleep very quick and she was breathing around 10 times per minute. She is afebrile, heart rate has been around 100, blood pressure slightly elevated, pulse ox is maintained on room air. - Physical Exam General: - - Very sleepy, lethargic, easily arousable, following commands appropriately. HEENT: Atraumatic, PERRLA, EOMI, Normocephalic Oral: Moist Mucosa, No Gingival or Mucosal Lesions/ Ulcerations Neck: Supple, No JVD, Negative Carotid Bruits, Trachea Midline, Thyroid Normal Size and Texture Lungs: Clear to auscultation, No rhonchi, No wheeze, No rales, Diminished Cardiovascular: Regular rate, Regular Rhythm, Normal S1, Normal S2, PMI Normal Abdomen: Bowel Sounds Present, Soft, Non Tender, Non-Distended, No Hepato- splenomegaly Extremities: No clubbing, No cyanosis, No edema Skin: No rashes, No breakdown Musculoskeletal: - - Right elbow: Linear open wound on the medial aspect of the right elbow surrounded by erythema and serous drainage, firm to palpation. Lymphatic: No Cervical, Supraclavicular, or Inguinal Adenopathy Neurological: Cranial nerves II-XII grossly intact, Motor Exam 5/5 strength throughout, - - Sleepy, lethargic, encephalopathic. Psych/Mental Status: - - Unable to assess at this time. Vital Signs Temp Pulse Resp BP Pulse Ox 98.3 F 95 12 163/99 H 100 08/13/18 05:00 08/13/18 08:00 08/13/18 08:00 08/13/18 08:00 08/13/18 08:00 Oxygen Flow Rate (L/min) 2 Oxygen Delivery Method Room Air Weight: 156 lb 1.396 oz Body Mass Index (BMI) 28.7 Finger Stick Blood Glucose 155 Intake and Output for Last 24 Hours 08/11/18 08/12/18 08/13/18 23:59 23:59 23:59 Intake Total 515 / 515 Output Total 900 / 900 Balance -385 / -385 Laboratory Tests Past 24 Hrs 08/12/18 08/12/18 08/12/18 16:00 16:00 16:00 WBC 6.9 RBC 3.48 L Hgb 10.9 L Hct 35.0 L MCV 100.6 H MCH 31.3 MCHC 31.1 L RDW 16.2 H RDW Differential 58.6 H Plt Count 197 MPV 9.9 Immature Gran % (Auto) 0.300 Neut % (Auto) 70.3 H Lymph % (Auto) 20.2 [place] % (Auto) 6.6 Eos % (Auto) 2.5 Baso % (Auto) 0.1 Absolute Neuts (auto) 4.9 Absolute Lymphs (auto) 1.40 Total Counted Not Reportable Specimen Type Sample Site pH Bicarbonate Actual POC Total CO2 Base Excess O2 Saturation ABG pCO2 ABG pO2 [place]o Test O2 Delivery Device Liter Flow Blood Gas Notified Whom Blood Gas Notified Time Sodium 145 Potassium 4.5 Chloride 108 H Carbon Dioxide 28.0 Anion Gap 9 BUN 57 H Creatinine 8.09 H* Estim Creat Clear Calc 6.95 Est GFR (MDRD) Af Amer 7 L Est GFR (MDRD) Non-Af 6 L BUN/Creatinine Ratio 7.0 L Glucose 89 Lactic Acid 0.8 Calcium 9.6 Ammonia Total Creatine Kinase Troponin I 0.024 Urine Opiates Screen Urine Methadone Screen Ur Barbiturates Screen Ur Phencyclidine Scrn Ur Amphetamines Screen U Methamphetamin-MDMA U Benzodiazepines Scrn Urine Cocaine Screen U Cannabinoids Screen Ur Drug Screen Comment 08/12/18 08/12/18 08/12/18 16:00 16:00 16:15 WBC RBC Hgb Hct MCV MCH MCHC RDW RDW Differential Plt Count MPV Immature Gran % (Auto) Neut % (Auto) Lymph % (Auto) [place] % (Auto) Eos % (Auto) Baso % (Auto) Absolute Neuts (auto) Absolute Lymphs (auto) Total Counted Specimen Type Sample Site pH Bicarbonate Actual POC Total CO2 Base Excess O2 Saturation ABG pCO2 ABG pO2 [place]o Test O2 Delivery Device Liter Flow Blood Gas Notified Whom Blood Gas Notified Time Sodium Potassium Chloride Carbon Dioxide Anion Gap BUN Creatinine Estim Creat Clear Calc Est GFR (MDRD) Af Amer Est GFR (MDRD) Non-Af BUN/Creatinine Ratio Glucose Lactic Acid Calcium Ammonia 18.0 Total Creatine Kinase 118 Troponin I Urine Opiates Screen NEGATIVE Urine Methadone Screen NEGATIVE Ur Barbiturates Screen NEGATIVE Ur Phencyclidine Scrn NEGATIVE Ur Amphetamines Screen NEGATIVE U Methamphetamin-MDMA NEGATIVE U Benzodiazepines Scrn NEGATIVE Urine Cocaine Screen NEGATIVE U Cannabinoids Screen NEGATIVE Ur Drug Screen Comment 08/12/18 08/12/18 08/13/18 16:44 21:12 06:02 WBC 9.3 RBC 3.47 L Hgb 10.7 L Hct 34.8 L MCV 100.3 H MCH 30.8 MCHC 30.7 L RDW 16.4 H RDW Differential 59.4 H Plt Count 205 MPV 9.5 Immature Gran % (Auto) 0.200 Neut % (Auto) 73.5 H Lymph % (Auto) 14.5 L [place] % (Auto) 10.1 H Eos % (Auto) 1.7 Baso % (Auto) 0.0 Absolute Neuts (auto) 6.9 Absolute Lymphs (auto) 1.35 Total Counted Not Reportable Specimen Type ART ART Sample Site L Brachial R Radial pH 7.37 7.42 Bicarbonate Actual 27.1 H 24.1 POC Total CO2 29 25 Base Excess 2 0 O2 Saturation 99 97 ABG pCO2 46.7 H 37.4 ABG pO2 120 H 93 [place]o Test NA POS O2 Delivery Device Nasal Can Room Air Liter Flow 2.0 Blood Gas Notified Whom ED HOSP Blood Gas Notified Time 1640 2100 Sodium Potassium Chloride Carbon Dioxide Anion Gap BUN Creatinine Estim Creat Clear Calc Est GFR (MDRD) Af Amer Est GFR (MDRD) Non-Af BUN/Creatinine Ratio Glucose Lactic Acid Calcium Ammonia Total Creatine Kinase Troponin I Urine Opiates Screen Urine Methadone Screen Ur Barbiturates Screen Ur Phencyclidine Scrn Ur Amphetamines Screen U Methamphetamin-MDMA U Benzodiazepines Scrn Urine Cocaine Screen U Cannabinoids Screen Ur Drug Screen Comment 08/13/18 06:02 WBC RBC Hgb Hct MCV MCH MCHC RDW RDW Differential Plt Count MPV Immature Gran % (Auto) Neut % (Auto) Lymph % (Auto) [place] % (Auto) Eos % (Auto) Baso % (Auto) Absolute Neuts (auto) Absolute Lymphs (auto) Total Counted Specimen Type Sample Site pH Bicarbonate Actual POC Total CO2 Base Excess O2 Saturation ABG pCO2 ABG pO2 [place]o Test O2 Delivery Device Liter Flow Blood Gas Notified Whom Blood Gas Notified Time Sodium 145 Potassium 4.7 Chloride 110 H Carbon Dioxide 24.0 Anion Gap 11 BUN 59 H Creatinine 8.36 H* Estim Creat Clear Calc 6.41 Est GFR (MDRD) Af Amer 7 L Est GFR (MDRD) Non-Af 6 L BUN/Creatinine Ratio 7.1 L Glucose 96 Lactic Acid Calcium 9.0 Ammonia Total Creatine Kinase Troponin I Urine Opiates Screen Urine Methadone Screen Ur Barbiturates Screen Ur Phencyclidine Scrn Ur Amphetamines Screen U Methamphetamin-MDMA U Benzodiazepines Scrn Urine Cocaine Screen U Cannabinoids Screen Ur Drug Screen Comment POC Glucose 08/13/18 08/13/18 08/13/18 08:08 04:01 03:00 POC Glucose 121 H 106 83 08/13/18 08/13/18 08/13/18 02:01 01:10 00:06 POC Glucose 127 H 74 92 08/12/18 08/12/18 08/12/18 23:08 21:58 20:44 POC Glucose 104 99 136 H 08/12/18 08/12/18 08/12/18 19:31 18:53 15:26 POC Glucose 155 H 56 L 70 Clinical Impression(s) from Imaging Studies Brain CT 08/12/18 15:45 IMPRESSION: 1. No acute intracranial pathology. 2. Stable borderline expansile polyp or mucocele in the anterior right ethmoid sinus, contiguous with the opacified right frontal sinus. Changes of prior medial wall antrectomies and resection of the ethmoid sinus floors again noted. The moderate bilateral mucoperiosteal thickening of the maxillary sinuses on prior study has cleared. Electronically Signed: Richardson Sky MD at 16:47 EST , Service support , Cervical Spine CT 08/12/18 15:47 IMPRESSION: 1. No acute fracture of the cervical spine. 2. Minor multilevel degenerative changes, as described above. Electronically Signed: Richardson Sky MD at 16:54 EST , Service support , Chest X-Ray 08/12/18 15:50 IMPRESSION: 1. Suboptimal inspiratory effort with minor left base crowding. 2. Right chest wall dialysis catheter unchanged. The left subclavian MediPort seen on prior study has been removed. Electronically Signed: Richardson Sky MD at 16:21 EST , Service support , KUB X-Ray 08/12/18 21:40 IMPRESSION: Nasogastric tube with tip at the GE junction. It needs to be advanced further by 8 to 9 cm. Electronically Signed: Abiodun Johnson DO at 22:28 EST Tel [phone], Service support , KUB X-Ray 08/12/18 22:43 IMPRESSION: Nasogastric tube with tip at the GE junction. No significant interval changes. Electronically Signed: Abiodun Johnson DO at 23:26 EST Tel [phone], Service support , KUB X-Ray 08/13/18 00:20 Medical Necessity - Tobacco Use Smoking Status: Unknown if ever smoked Assessment/Plan All Active Problems (Last Updated 08/13/18 @ 08:57 by Lele Garcia MD) Encephalopathy acute (Acute) This is a 47 years old female patient presented to the emergency room because of change in mental status, found to have acute encephalopathy probably metabolic, found to have right infected wound/cellulitis. #1 acute encephalopathy: Probably metabolic due to uremic encephalopathy or possibly drug overdose. Her vital signs are stable. She responds to commands with spontaneous eye opening and appropriate response but she goes back to sleep very quickly. CT scan brain without findings. MRI brain showed no acute infarction or hemorrhage. Urine drug screen was negative. Blood alcohol level was low. LFT and ammonia was normal. Serum cortisol was even high. Plan: Aspiration precautions, continue same treatment, hemodialysis today. #2 right elbow cellulitis/infected wound: There is linear laceration on the medial aspect of the right elbow surrounded by erythema with serous drainage and felt to palpation. She was started on IV clindamycin. She is afebrile, no leukocytosis. Plan: Change clindamycin to IV Unasyn, continue cefepime, wound culture, CT scan right upper extremity to rule out abscess. #3 ESRD on hemodialysis: BUN is 59, creatinine is 8.3, potassium is normal. Her altered mental status could be due to uremic encephalopathy as above. Plan for hemodialysis today, nephrology consulted. #4 type 2 diabetes mellitus: At this time, patient will be kept on n.p.o. Plan for Accu-Cheks, sliding scale, resume ADA diet when she is awake, continue Tradjenta when able to eat. #5 SLE/lupus nephritis: Kidney function seems stable. Patient has been on long- term steroids. Plan to continue prednisone, continue Plaquenil, nephrology consult. #6 hypertension: Blood pressure slightly elevated, continue IV hydralazine as needed, continue metoprolol. #7 chronic anemia: Hemoglobin has been around 10-12 g/dL. Admission hemoglobin is 10.7 g/dL, stable at baseline. #8 DVT prophylaxis: Subcu heparin. This note was generated with [employer] dictation software. It may contain incorrect words, spelling, and punctuation that were not noted in checking the note before signing. Code Visit Inpatient E&M: 14900 Subs Hosp L3
[2018-08-13 10:51] LABS: AST(SGOT) 35 U/L (15-37); Alanine Aminotransfer ALT/SGPT < 6 U/L (13-56); Albumin, Serum 2.9 g/dL (3.2-5.0); Alkaline Phosphatase 81 U/L (45-117); Bilirubin, Direct 0.14 mg/dL (0.00-0.30); Globulin 4.6 g/dL (2.2-4.2); Protein, Total 7.5 g/dL (6.4-8.2)
[2018-08-13 11:54] LABS: Salicylate < 1.7 mg/dL (2.8-20.0)
[2018-08-13 12:16] LABS: Bedside Glucose 122 mg/dL (70-110)
--- NOTE | 2018-08-13 12:42 | CASEMGMT ---
Addendum entered by Marielos Burgess 08/13/18 13:10: SW received a call back from [facility], pt does still have aide services 14 hours/week through [facility]. SW placed green sheet on the chart in event pt is doing well enough to go home, for staff to notify [facility]. Otherwise, SW/CM will follow up on Wednesday. HUDSON Rodriguez, [employer] Original Note: SW met w/pt briefly in room, pt is getting dialysis at present and having difficulty staying awake during conversation. Pt was able to tell this SW she still lives w/her mother, states her mother cannot talk however. Pt states takes [employer] for transportation to and from dialysis. SW inquired if pt's brother still assists her, as he has in the past. Pt states, he said no. Pt then fell asleep and unable to answer additional questions. SW reviewed old notes, in September pt had a case aide at [facility], Nita Sanots, and had 14 hours of aide services from [facility] per week. SW cannot call [facility] today as they are not open on the weekend, but did call [facility] and left a message inquiring if they still provide services for pt. SW/CM to follow up Wednesday w/pt to inquire further information, and to follow up w/[facility] and [facility]. HUDSON Rodriguez, MACH[employer]
[2018-08-13 13:26] LABS: M R Staph aureus DNA By PCR Negative (Negative); Probe Check PASS; Specimen Processing Control PASS; Staph aureus DNA By PCR NEGATIVE (Negative)
--- NOTE | 2018-08-13 13:38 | PCM.CONS.R ---
Consultation - Renal 08/13/18 PCP/ Referring MD: Requesting physician: [] Primary care physician: Mitchell Bowen Reason for Consultation:: ESRD renal mgmt - History of Present Illness History of Present Illness: The patient is a 47 year old F with ESRD due to lupus, diabetes HD MWF at [place] unit brought in by family for change in mental status. Patient was found unresponsive by family. Dialysis center was unable to reach the patient or her brother when she did not show for her dialysis treatment yesterday. She was set up for dialysis today. Only 900cc removed on dialysis due to low BP. Currently more responsive. Pt unable to provide history. She could not recall what happened to her at home. She does not know if she had seizures or if her sugars were low. CT of the head unremarkable. She denied fever or chills. She had an AVF placed recently by Dr. Spangler at [facility]. Drainage from incision site grew Serratia marcescens done at dialysis center. She was started on ancef then switched to cefepime past Wed for infection of access site. - Allergies Allergies: Allergies LONG Inhibitors Allergy (Verified 08/07/18 22:06) Angioedema lisinopril Allergy (Verified 08/07/18 22:06) Angioedema Sulfa (Sulfonamide Antibiotics) Allergy (Verified 08/07/18 22:06) Rash sulfamethoxazole [From Bactrim] Allergy (Verified 08/07/18 22:06) Rash trimethoprim [From Bactrim] Allergy (Verified 08/07/18 22:06) Rash Angioderm Adverse Reaction (Unknown, Uncoded 07/27/18 11:40) Unknown - Current Medications Current Medications: Current Medications Acetaminophen (Tylenol) 650 mg PO Q6H PRN PRN PRN Reason: Mild Pain (1-3)/Temp > 100.7 F Atorvastatin Calcium (Lipitor) 20 mg PO QHS ENRIQUE Last Admin: 08/13/18 03:03 Dose: 20 mg Calcitriol (Rocaltrol) 0.25 mcg PO ONCE ENRIQUE Dextrose (D50w Syringe) 0 gm IV X1 PRN; Protocol PRN Reason: Hypoglycemia Last Admin: 08/13/18 06:42 Dose: 25 gm Duloxetine HCl (Cymbalta) 120 mg PO DAILY ENRIQUE Last Admin: 08/13/18 12:37 Dose: Not Given Ergocalciferol (Vitamin D) 50,000 unit PO QMONTH [facility] Famotidine (Pepcid) 40 mg PO DAILY [facility] Fluticasone Propionate (Flonase Nasal [place]) 2 spray NASAL DAILY [facility] Last Admin: 08/13/18 12:37 Dose: Not Given Glucagon () 1 mg IM .X1 PRN PRN Reason: Hypoglycemia Heparin Sodium (Porcine) (Heparin Na) 5,000 unit SC Q8 [facility] Last Admin: 08/13/18 12:37 Dose: Not Given Hydralazine HCl (Apresoline Iv) 5 mg IV Q4H PRN PRN PRN Reason: SBP GREATER THAN 170 Last Admin: 08/13/18 06:09 Dose: 5 mg Hydrocortisone Sodium Succinate (Solu-Cortef) 50 mg IV Q8 [facility] Hydroxychloroquine [facility]ate ([facility]il) [facility] Last Admin: 08/13/18 12:36 Dose: Not Given Sodium Chloride () 250 mls @ 15 mls/hr IV .[id number] PRN PRN Reason: SALINE FLUSH Ampicillin Sodium/Sulbactam (Sodium 3 gm/ Sodium Chloride) 112 mls @ 150 mls/hr IV Q8 [facility] Lactic Acid (Lac-Hydrin, Amlactin) 1 applic TOPICAL DAILY PRN PRN Reason: DRY SKIN Linagliptin (Tradjenta) 5 mg PO DAILY [facility] Magnesium Hydroxide (Milk Of Magnesia) 30 ml PO DAILY PRN PRN PRN Reason: Constipation Methylphenidate HCl (Ritalin (G)) 10 mg NG Q8 [facility] Last Admin: 08/13/18 06:07 Dose: Not Given Metoprolol Tartrate (Lopressor (Beta Cirilo)) 25 mg PO BID [facility] Last Admin: 08/13/18 03:02 Dose: 25 mg Montelukast Sodium (Singulair) 10 mg PO QHS [facility] Last Admin: 08/13/18 03:03 Dose: 10 mg Multivitamins ([facility]ivitamin) [facility] Last Admin: 08/13/18 12:20 Dose: Not Given Non-Formulary Medication (Clindamycin Phos/Benzoyl Perox [Benzaclin Gel]) 1 applic TOPICAL DAILY [facility] Ondansetron HCl (Zofran) 4 mg IV Q8H PRN PRN PRN Reason: NAUSEA Sevelamer Carbonate (Renvela) 2,400 mg PO TID [facility] Sodium Chloride () 5 - 15 ml IV UD PRN PRN Reason: SALINE FLUSH Last Admin: 08/13/18 06:09 Dose: 10 ml - Past Medical History Past Medical History (Chronic Problems): Chronic Problems (Last Updated 08/13/18 @ 08:57 by Lele Garcia MD) Nonrheumatic mitral (valve) insufficiency (Chronic) Secondary pulmonary arterial hypertension (Chronic) Non-rheumatic tricuspid valve insufficiency (Chronic) End stage renal disease (Chronic) Chronic anemia (Chronic) Hypertension (Chronic) Narcolepsy (Chronic) Lupus nephritis (Chronic) Status post kidney and liver biopsy (fatty liver) Degenerative disc disease, cervical (Chronic) Cervical spondylosis (Chronic) Diabetes mellitus, type II (Chronic) SLE (systemic lupus erythematosus) (Chronic) - Past Surgical History Surgical History: - - Social History Smoking Status: Unknown if ever smoked - Family History Maternal Family History: Family History (Last Reviewed 08/12/18 @ 18:36 by Javi Sanchez DO) Mother Hypertension Kidney disease ALS (amyotrophic lateral sclerosis) Father Heart disease Hypertension Kidney disease Diabetes History Items: Diabetes, High Cholesterol, Heart Disease, Hypertension, Renal Disease, - Paternal Family History: Family History (Last Reviewed 08/12/18 @ 18:36 by Javi Sanchez DO) Mother Hypertension Kidney disease ALS (amyotrophic lateral sclerosis) Father Heart disease Hypertension Kidney disease Diabetes History Items: Diabetes, High Cholesterol, Heart Disease, Hypertension, Renal Disease Sibling Family History: Family History (Last Reviewed 08/12/18 @ 18:36 by Javi Sanchez DO) Mother Hypertension Kidney disease ALS (amyotrophic lateral sclerosis) Father Heart disease Hypertension Kidney disease Diabetes History Items: Diabetes Review of Systems Constitutional: Reports: Weakness. Denies: Chills, Fever Eyes: Reports: Blurred vision - resolved, Redness Cardiovascular: Denies: Chest Pain Respiratory: Denies: Cough, Shortness of Breath Gastrointestinal: Denies: Abdominal Pain, Constipation, Diarrhea, Nausea, Vomiting Skin: Reports: Rash - rt antecubital incision drainage. Neurological: Denies: Headaches, Tremor, Seizures Psychiatric: Reports: Anxiety, Depression Hematologic/ Lymphatic: Reports: Anemia Patient Problems: Active and Suspected Problems (Last Updated 08/13/18 @ 08:57 by Lele Garcia MD) Encephalopathy acute (Acute) - Physical Exam General: Alert, Oriented x3, Cooperative, No apparent distress HEENT: PERRLA, EOMI, - - conjunctivitis Oral: Moist Mucosa Neck: Supple Lungs: Clear to auscultation, Diminished Cardiovascular: Regular rate Abdomen: Bowel Sounds Present, Soft, Non Tender, Non-Distended Extremities: No edema, - - COREY mild edema from central stenosis, new AVF placement Skin: Incision - mild erythema Musculoskeletal: No Muscle Wasting Neurological: - - no tremor Psych/Mental Status: Normal Affect, Appropriate, Alert and oriented to time, place, person, mood and affect Vital Signs Temp Pulse Resp BP Pulse Ox 97.6 F L 124 H 12 104/77 100 08/13/18 11:00 08/13/18 11:13 08/13/18 11:00 08/13/18 11:00 08/13/18 11:00 Oxygen Flow Rate (L/min) 2 Oxygen Delivery Method Room Air Weight: 70.8 kg Body Mass Index (BMI) 28.7 Finger Stick Blood Glucose 155 Intake and Output for Last 24 Hours 08/11/18 08/12/18 08/13/18 23:59 23:59 23:59 Intake Total 515 / 515 Output Total 900 / 900 Balance -385 / -385 Laboratory Tests Past 24 Hrs 08/12/18 08/12/18 08/12/18 16:00 16:00 16:00 WBC 6.9 RBC 3.48 L Hgb 10.9 L Hct 35.0 L MCV 100.6 H MCH 31.3 MCHC 31.1 L RDW 16.2 H RDW Differential 58.6 H Plt Count 197 MPV 9.9 Immature Gran % (Auto) 0.300 Neut % (Auto) 70.3 H Lymph % (Auto) 20.2 [place] % (Auto) 6.6 Eos % (Auto) 2.5 Baso % (Auto) 0.1 Absolute Neuts (auto) 4.9 Absolute Lymphs (auto) 1.40 Total Counted Not Reportable Specimen Type Sample Site pH Bicarbonate Actual POC Total CO2 Base Excess O2 Saturation ABG pCO2 ABG pO2 Romeo Test O2 Delivery Device Liter Flow Blood Gas Notified Whom Blood Gas Notified Time Sodium 145 Potassium 4.5 Chloride 108 H Carbon Dioxide 28.0 Anion Gap 9 BUN 57 H Creatinine 8.09 H* Estim Creat Clear Calc 6.95 Est GFR (MDRD) Af Amer 7 L Est GFR (MDRD) Non-Af 6 L BUN/Creatinine Ratio 7.0 L Glucose 89 Lactic Acid 0.8 Calcium 9.6 Total Bilirubin Direct Bilirubin AST ALT Alkaline Phosphatase Ammonia Total Creatine Kinase Troponin I 0.024 Total Protein Albumin Globulin Cortisol Salicylates Urine Opiates Screen Urine Methadone Screen Ur Barbiturates Screen Ur Phencyclidine Scrn Ur Amphetamines Screen U Methamphetamin-MDMA U Benzodiazepines Scrn Urine Cocaine Screen U Cannabinoids Screen Ur Drug Screen Comment Ethyl Alcohol S.aureus Protein A PCR MRSA (PCR) 08/12/18 08/12/18 08/12/18 16:00 16:00 16:15 WBC RBC Hgb Hct MCV MCH MCHC RDW RDW Differential Plt Count MPV Immature Gran % (Auto) Neut % (Auto) Lymph % (Auto) [place] % (Auto) Eos % (Auto) Baso % (Auto) Absolute Neuts (auto) Absolute Lymphs (auto) Total Counted Specimen Type Sample Site pH Bicarbonate Actual POC Total CO2 Base Excess O2 Saturation ABG pCO2 ABG pO2 Romeo Test O2 Delivery Device Liter Flow Blood Gas Notified Whom Blood Gas Notified Time Sodium Potassium Chloride Carbon Dioxide Anion Gap BUN Creatinine Estim Creat Clear Calc Est GFR (MDRD) Af Amer Est GFR (MDRD) Non-Af BUN/Creatinine Ratio Glucose Lactic Acid Calcium Total Bilirubin Direct Bilirubin AST ALT Alkaline Phosphatase Ammonia 18.0 Total Creatine Kinase 118 Troponin I Total Protein Albumin Globulin Cortisol Salicylates Urine Opiates Screen NEGATIVE Urine Methadone Screen NEGATIVE Ur Barbiturates Screen NEGATIVE Ur Phencyclidine Scrn NEGATIVE Ur Amphetamines Screen NEGATIVE U Methamphetamin-MDMA NEGATIVE U Benzodiazepines Scrn NEGATIVE Urine Cocaine Screen NEGATIVE U Cannabinoids Screen NEGATIVE Ur Drug Screen Comment Ethyl Alcohol S.aureus Protein A PCR MRSA (PCR) 08/12/18 08/12/18 08/13/18 16:44 21:12 06:01 WBC RBC Hgb Hct MCV MCH MCHC RDW RDW Differential Plt Count MPV Immature Gran % (Auto) Neut % (Auto) Lymph % (Auto) [place] % (Auto) Eos % (Auto) Baso % (Auto) Absolute Neuts (auto) Absolute Lymphs (auto) Total Counted Specimen Type ART ART Sample Site L Brachial R Radial pH 7.37 7.42 Bicarbonate Actual 27.1 H 24.1 POC Total CO2 29 25 Base Excess 2 0 O2 Saturation 99 97 ABG pCO2 46.7 H 37.4 ABG pO2 120 H 93 Romeo Test NA POS O2 Delivery Device Nasal Can Room Air Liter Flow 2.0 Blood Gas Notified Whom ED HOSP Blood Gas Notified Time 1640 2100 Sodium Potassium Chloride Carbon Dioxide Anion Gap BUN Creatinine Estim Creat Clear Calc Est GFR (MDRD) Af Amer Est GFR (MDRD) Non-Af BUN/Creatinine Ratio Glucose Lactic Acid Calcium Total Bilirubin 0.50 Direct Bilirubin 0.14 AST 35 ALT < 6 L Alkaline Phosphatase 81 Ammonia Total Creatine Kinase Troponin I Total Protein 7.5 Albumin 2.9 L Globulin 4.6 H Cortisol Salicylates Urine Opiates Screen Urine Methadone Screen Ur Barbiturates Screen Ur Phencyclidine Scrn Ur Amphetamines Screen U Methamphetamin-MDMA U Benzodiazepines Scrn Urine Cocaine Screen U Cannabinoids Screen Ur Drug Screen Comment Ethyl Alcohol S.aureus Protein A PCR MRSA (PCR) 08/13/18 08/13/18 08/13/18 06:02 06:02 09:24 WBC 9.3 RBC 3.47 L Hgb 10.7 L Hct 34.8 L MCV 100.3 H MCH 30.8 MCHC 30.7 L RDW 16.4 H RDW Differential 59.4 H Plt Count 205 MPV 9.5 Immature Gran % (Auto) 0.200 Neut % (Auto) 73.5 H Lymph % (Auto) 14.5 L [place] % (Auto) 10.1 H Eos % (Auto) 1.7 Baso % (Auto) 0.0 Absolute Neuts (auto) 6.9 Absolute Lymphs (auto) 1.35 Total Counted Not Reportable Specimen Type Sample Site pH Bicarbonate Actual POC Total CO2 Base Excess O2 Saturation ABG pCO2 ABG pO2 [place]o Test O2 Delivery Device Liter Flow Blood Gas Notified Whom Blood Gas Notified Time Sodium 145 Potassium 4.7 Chloride 110 H Carbon Dioxide 24.0 Anion Gap 11 BUN 59 H Creatinine 8.36 H* Estim Creat Clear Calc 6.41 Est GFR (MDRD) Af Amer 7 L Est GFR (MDRD) Non-Af 6 L BUN/Creatinine Ratio 7.1 L Glucose 96 Lactic Acid Calcium 9.0 Total Bilirubin Direct Bilirubin AST ALT Alkaline Phosphatase Ammonia Total Creatine Kinase Troponin I Total Protein Albumin Globulin Cortisol Salicylates Urine Opiates Screen Urine Methadone Screen Ur Barbiturates Screen Ur Phencyclidine Scrn Ur Amphetamines Screen U Methamphetamin-MDMA U Benzodiazepines Scrn Urine Cocaine Screen U Cannabinoids Screen Ur Drug Screen Comment Ethyl Alcohol S.aureus Protein A PCR NEGATIVE MRSA (PCR) Negative 08/13/18 08/13/18 08/13/18 10:30 10:30 10:30 WBC RBC Hgb Hct MCV MCH MCHC RDW RDW Differential Plt Count MPV Immature Gran % (Auto) Neut % (Auto) Lymph % (Auto) [place] % (Auto) Eos % (Auto) Baso % (Auto) Absolute Neuts (auto) Absolute Lymphs (auto) Total Counted Specimen Type Sample Site pH Bicarbonate Actual POC Total CO2 Base Excess O2 Saturation ABG pCO2 ABG pO2 [place]o Test O2 Delivery Device Liter Flow Blood Gas Notified Whom Blood Gas Notified Time Sodium Potassium Chloride Carbon Dioxide Anion Gap BUN Creatinine Estim Creat Clear Calc Est GFR (MDRD) Af Amer Est GFR (MDRD) Non-Af BUN/Creatinine Ratio Glucose Lactic Acid Calcium Total Bilirubin Direct Bilirubin AST ALT Alkaline Phosphatase Ammonia Total Creatine Kinase Troponin I Total Protein Albumin Globulin Cortisol 27.70 H Salicylates < 1.7 L Urine Opiates Screen Urine Methadone Screen Ur Barbiturates Screen Ur Phencyclidine Scrn Ur Amphetamines Screen U Methamphetamin-MDMA U Benzodiazepines Scrn Urine Cocaine Screen U Cannabinoids Screen Ur Drug Screen Comment Ethyl Alcohol 3.0 S.aureus Protein A PCR MRSA (PCR) POC Glucose 08/13/18 08/13/18 08/13/18 12:05 08:08 04:01 POC Glucose 122 H 121 H 106 08/13/18 08/13/18 08/13/18 03:00 02:01 01:10 POC Glucose 83 127 H 74 08/13/18 08/12/18 08/12/18 00:06 23:08 21:58 POC Glucose 92 104 99 08/12/18 08/12/18 08/12/18 20:44 19:31 18:53 POC Glucose 136 H 155 H 56 L 08/12/18 15:26 POC Glucose 70 Clinical Impression(s) from Imaging Studies Brain CT 08/12/18 15:45 IMPRESSION: 1. No acute intracranial pathology. 2. Stable borderline expansile polyp or mucocele in the anterior right ethmoid sinus, contiguous with the opacified right frontal sinus. Changes of prior medial wall antrectomies and resection of the ethmoid sinus floors again noted. The moderate bilateral mucoperiosteal thickening of the maxillary sinuses on prior study has cleared. Electronically Signed: Richardson Sky MD at 16:47 EST , Service support , Cervical Spine CT 08/12/18 15:47 IMPRESSION: 1. No acute fracture of the cervical spine. 2. Minor multilevel degenerative changes, as described above. Electronically Signed: Richardson Sky MD at 16:54 EST , Service support , Chest X-Ray 08/12/18 15:50 IMPRESSION: 1. Suboptimal inspiratory effort with minor left base crowding. 2. Right chest wall dialysis catheter unchanged. The left subclavian MediPort seen on prior study has been removed. Electronically Signed: Richardson Sky MD at 16:21 EST , Service support , Brain MRI 08/12/18 20:26 IMPRESSION: Unremarkable unenhanced MRI of the brain. Electronically Signed: Eliza Cheek MD at 10:11 EST Tel , Service support , KUB X-Ray 08/12/18 21:40 IMPRESSION: Nasogastric tube with tip at the GE junction. It needs to be advanced further by 8 to 9 cm. Electronically Signed: Abiodun Johnson DO at 22:28 EST Tel [phone], Service support , KUB X-Ray 08/12/18 22:43 IMPRESSION: Nasogastric tube with tip at the GE junction. No significant interval changes. Electronically Signed: Abiodun Johnson DO at 23:26 EST Tel [phone], Service support , KUB X-Ray 08/13/18 00:20 Assessment/Plan All Active Problems (Last Updated 08/13/18 @ 08:57 by Lele Garcia MD) Encephalopathy acute (Acute) Acute renal failure (Resolved) Chronic kidney disease (Resolved) Dehydration with hyponatremia (Resolved) Hyperkalemia (Resolved) Unresponsiveness (Resolved) 1. ESRD HD MWF. DIalysis today for missed tx yesterday. 2. Encephalopathy improved 3. DM2 primary mgmt 4. HTN BP elevated. Resume home meds 5. SLE 6. ANemia 7. Hx seizures 8. Infected access site with serratia. Continue cefepime for 3 more doses
--- NOTE | 2018-08-13 13:42 | CON.PCM_ITS ---
Consultation - Renal 08/13/18 PCP/ Referring MD: Requesting physician: [] Primary care physician: Mitchell Bowen Reason for Consultation:: ESRD renal mgmt - History of Present Illness History of Present Illness: The patient is a 47 year old F with ESRD due to lupus, diabetes HD MWF at [place] unit brought in by family for change in mental status. Patient was found unresponsive by family. Dialysis center was unable to reach the patient or her brother when she did not show for her dialysis treatment yesterday. She was set up for dialysis today. Only 900cc removed on dialysis due to low BP. Currently more responsive. Pt unable to provide history. She could not recall what happened to her at home. She does not know if she had seizures or if her sugars were low. CT of the head unremarkable. She denied fever or chills. She had an AVF placed recently by Dr. Spangler at [facility]. Drainage from incision site grew Serratia marcescens done at dialysis center. She was started on ancef then switched to cefepime past Wed for infection of access site. - Allergies Allergies: Allergies LONG Inhibitors Allergy (Verified 08/07/18 22:06) Angioedema lisinopril Allergy (Verified 08/07/18 22:06) Angioedema Sulfa (Sulfonamide Antibiotics) Allergy (Verified 08/07/18 22:06) Rash sulfamethoxazole [From Bactrim] Allergy (Verified 08/07/18 22:06) Rash trimethoprim [From Bactrim] Allergy (Verified 08/07/18 22:06) Rash Angioderm Adverse Reaction (Unknown, Uncoded 07/27/18 11:40) Unknown - Current Medications Current Medications: Current Medications Acetaminophen (Tylenol) 650 mg PO Q6H PRN PRN PRN Reason: Mild Pain (1-3)/Temp > 100.7 F Atorvastatin Calcium (Lipitor) 20 mg PO QHS ENRIQUE Last Admin: 08/13/18 03:03 Dose: 20 mg Calcitriol (Rocaltrol) 0.25 mcg PO ONCE ENRIQUE Dextrose (D50w Syringe) 0 gm IV X1 PRN; Protocol PRN Reason: Hypoglycemia Last Admin: 08/13/18 06:42 Dose: 25 gm Duloxetine HCl (Cymbalta) 120 mg PO DAILY ENRIQUE Last Admin: 08/13/18 12:37 Dose: Not Given Ergocalciferol (Vitamin D) 50,000 unit PO QMONTH [facility] Famotidine (Pepcid) 40 mg PO DAILY [facility] Fluticasone Propionate (Flonase Nasal Roy) 2 spray NASAL DAILY [facility] Last Admin: 08/13/18 12:37 Dose: Not Given Glucagon () 1 mg IM .X1 PRN PRN Reason: Hypoglycemia Heparin Sodium (Porcine) (Heparin Na) 5,000 unit SC Q8 [facility] Last Admin: 08/13/18 12:37 Dose: Not Given Hydralazine HCl (Apresoline Iv) 5 mg IV Q4H PRN PRN PRN Reason: SBP GREATER THAN 170 Last Admin: 08/13/18 06:09 Dose: 5 mg Hydrocortisone Sodium Succinate (Solu-Cortef) 50 mg IV Q8 [facility] Hydroxychloroquine S[facility]ate ([facility]aquenil) [facility] Last Admin: 08/13/18 12:36 Dose: Not Given Sodium Chloride () 250 mls @ 15 mls/hr IV .[id number] PRN PRN Reason: SALINE FLUSH Ampicillin Sodium/Sulbactam (Sodium 3 gm/ Sodium Chloride) 112 mls @ 150 mls/hr IV Q8 [facility] Lactic Acid (Lac-Hydrin, Amlactin) 1 applic TOPICAL DAILY PRN PRN Reason: DRY SKIN Linagliptin (Tradjenta) 5 mg PO DAILY [facility] Magnesium Hydroxide (Milk Of Magnesia) 30 ml PO DAILY PRN PRN PRN Reason: Constipation Methylphenidate HCl (Ritalin (G)) 10 mg NG Q8 [facility] Last Admin: 08/13/18 06:07 Dose: Not Given Metoprolol Tartrate (Lopressor (Beta Cirilo)) 25 mg PO BID [facility] Last Admin: 08/13/18 03:02 Dose: 25 mg Montelukast Sodium (Singulair) 10 mg PO QHS [facility] Last Admin: 08/13/18 03:03 Dose: 10 mg Multivitamins (Multivitamin) [facility] tablet [facility] Last Admin: 08/13/18 12:20 Dose: Not Given Non-Formulary Medication (Clindamycin Phos/Benzoyl Perox [Benzaclin Gel]) 1 applic TOPICAL DAILY [facility] Ondansetron HCl (Zofran) 4 mg IV Q8H PRN PRN PRN Reason: NAUSEA Sevelamer Carbonate (Renvela) 2,400 mg PO TID [facility] Sodium Chloride () 5 - 15 ml IV UD PRN PRN Reason: SALINE FLUSH Last Admin: 08/13/18 06:09 Dose: 10 ml - Past Medical History Past Medical History (Chronic Problems): Chronic Problems (Last Updated 08/13/18 @ 08:57 by Lele Garcia MD) Nonrheumatic mitral (valve) insufficiency (Chronic) Secondary pulmonary arterial hypertension (Chronic) Non-rheumatic tricuspid valve insufficiency (Chronic) End stage renal disease (Chronic) Chronic anemia (Chronic) Hypertension (Chronic) Narcolepsy (Chronic) Lupus nephritis (Chronic) Status post kidney and liver biopsy (fatty liver) Degenerative disc disease, cervical (Chronic) Cervical spondylosis (Chronic) Diabetes mellitus, type II (Chronic) SLE (systemic lupus erythematosus) (Chronic) - Past Surgical History Surgical History: - - Social History Smoking Status: Unknown if ever smoked - Family History Maternal Family History: Family History (Last Reviewed 08/12/18 @ 18:36 by Javi Sanchez DO) Mother Hypertension Kidney disease ALS (amyotrophic lateral sclerosis) Father Heart disease Hypertension Kidney disease Diabetes History Items: Diabetes, High Cholesterol, Heart Disease, Hypertension, Renal Disease, - Paternal Family History: Family History (Last Reviewed 08/12/18 @ 18:36 by Javi Sanchez DO) Mother Hypertension Kidney disease ALS (amyotrophic lateral sclerosis) Father Heart disease Hypertension Kidney disease Diabetes History Items: Diabetes, High Cholesterol, Heart Disease, Hypertension, Renal Disease Sibling Family History: Family History (Last Reviewed 08/12/18 @ 18:36 by Javi Sanchez DO) Mother Hypertension Kidney disease ALS (amyotrophic lateral sclerosis) Father Heart disease Hypertension Kidney disease Diabetes History Items: Diabetes Review of Systems Constitutional: Reports: Weakness. Denies: Chills, Fever Eyes: Reports: Blurred vision - resolved, Redness Cardiovascular: Denies: Chest Pain Respiratory: Denies: Cough, Shortness of Breath Gastrointestinal: Denies: Abdominal Pain, Constipation, Diarrhea, Nausea, Vo miting Skin: Reports: Rash - rt antecubital incision drainage. Neurological: Denies: Headaches, Tremor, Seizures Psychiatric: Reports: Anxiety, Depression Hematologic/ Lymphatic: Reports: Anemia Patient Problems: Active and Suspected Problems (Last Updated 08/13/18 @ 08:57 by Lele Garcia MD) Encephalopathy acute (Acute) - Physical Exam General: Alert, Oriented x3, Cooperative, No apparent distress HEENT: PERRLA, EOMI, - - conjunctivitis Oral: Moist Mucosa Neck: Supple Lungs: Clear to auscultation, Diminished Cardiovascular: Regular rate Abdomen: Bowel Sounds Present, Soft, Non Tender, Non-Distended Extremities: No edema, - - COREY mild edema from central stenosis, new AVF placement Skin: Incision - mild erythema Musculoskeletal: No Muscle Wasting Neurological: - - no tremor Psych/Mental Status: Normal Affect, Appropriate, Alert and oriented to time, place, person, mood and affect Vital Signs Temp Pulse Resp BP Pulse Ox 97.6 F L 124 H 12 104/77 100 08/13/18 11:00 08/13/18 11:13 08/13/18 11:00 08/13/18 11:00 08/13/18 11:00 Oxygen Flow Rate (L/min) 2 Oxygen Delivery Method Room Air Weight: 70.8 kg Body Mass Index (BMI) 28.7 Finger Stick Blood Glucose 155 Intake and Output for Last 24 Hours 08/11/18 08/12/18 08/13/18 23:59 23:59 23:59 Intake Total 515 / 515 Output Total 900 / 900 Balance -385 / -385 Laboratory Tests Past 24 Hrs 08/12/18 08/12/18 08/12/18 16:00 16:00 16:00 WBC 6.9 RBC 3.48 L Hgb 10.9 L Hct 35.0 L MCV 100.6 H MCH 31.3 MCHC 31.1 L RDW 16.2 H RDW Differential 58.6 H Plt Count 197 MPV 9.9 Immature Gran % (Auto) 0.300 Neut % (Auto) 70.3 H Lymph % (Auto) 20.2 [place] % (Auto) 6.6 Eos % (Auto) 2.5 Baso % (Auto) 0.1 Absolute Neuts (auto) 4.9 Absolute Lymphs (auto) 1.40 Total Counted Not Reportable Specimen Type Sample Site pH Bicarbonate Actual POC Total CO2 Base Excess O2 Saturation ABG pCO2 ABG pO2 Romeo Test O2 Delivery Device Liter Flow Blood Gas Notified Whom Blood Gas Notified Time Sodium 145 Potassium 4.5 Chloride 108 H Carbon Dioxide 28.0 Anion Gap 9 BUN 57 H Creatinine 8.09 H* Estim Creat Clear Calc 6.95 Est GFR (MDRD) Af Amer 7 L Est GFR (MDRD) Non-Af 6 L BUN/Creatinine Ratio 7.0 L Glucose 89 Lactic Acid 0.8 Calcium 9.6 Total Bilirubin Direct Bilirubin AST ALT Alkaline Phosphatase Ammonia Total Creatine Kinase Troponin I 0.024 Total Protein Albumin Globulin Cortisol Salicylates Urine Opiates Screen Urine Methadone Screen Ur Barbiturates Screen Ur Phencyclidine Scrn Ur Amphetamines Screen U Methamphetamin-MDMA U Benzodiazepines Scrn Urine Cocaine Screen U Cannabinoids Screen Ur Drug Screen Comment Ethyl Alcohol S.aureus Protein A PCR MRSA (PCR) 08/12/18 08/12/18 08/12/18 16:00 16:00 16:15 WBC RBC Hgb Hct MCV MCH MCHC RDW RDW Differential Plt Count MPV Immature Gran % (Auto) Neut % (Auto) Lymph % (Auto) [place] % (Auto) Eos % (Auto) Baso % (Auto) Absolute Neuts (auto) Absolute Lymphs (auto) Total Counted Specimen Type Sample Site pH Bicarbonate Actual POC Total CO2 Base Excess O2 Saturation ABG pCO2 ABG pO2 Romeo Test O2 Delivery Device Liter Flow Blood Gas Notified Whom Blood Gas Notified Time Sodium Potassium Chloride Carbon Dioxide Anion Gap BUN Creatinine Estim Creat Clear Calc Est GFR (MDRD) Af Amer Est GFR (MDRD) Non-Af BUN/Creatinine Ratio Glucose Lactic Acid Calcium Total Bilirubin Direct Bilirubin AST ALT Alkaline Phosphatase Ammonia 18.0 Total Creatine Kinase 118 Troponin I Total Protein Albumin Globulin Cortisol Salicylates Urine Opiates Screen NEGATIVE Urine Methadone Screen NEGATIVE Ur Barbiturates Screen NEGATIVE Ur Phencyclidine Scrn NEGATIVE Ur Amphetamines Screen NEGATIVE U Methamphetamin-MDMA NEGATIVE U Benzodiazepines Scrn NEGATIVE Urine Cocaine Screen NEGATIVE U Cannabinoids Screen NEGATIVE Ur Drug Screen Comment Ethyl Alcohol S.aureus Protein A PCR MRSA (PCR) 08/12/18 08/12/18 08/13/18 16:44 21:12 06:01 WBC RBC Hgb Hct MCV MCH MCHC RDW RDW Differential Plt Count MPV Immature Gran % (Auto) Neut % (Auto) Lymph % (Auto) [place] % (Auto) Eos % (Auto) Baso % (Auto) Absolute Neuts (auto) Absolute Lymphs (auto) Total Counted Specimen Type ART ART Sample Site L Brachial R Radial pH 7.37 7.42 Bicarbonate Actual 27.1 H 24.1 POC Total CO2 29 25 Base Excess 2 0 O2 Saturation 99 97 ABG pCO2 46.7 H 37.4 ABG pO2 120 H 93 Romeo Test NA POS O2 Delivery Device Nasal Can Room Air Liter Flow 2.0 Blood Gas Notified Whom ED [facility] Blood Gas Notified Time 1640 2100 Sodium Potassium Chloride Carbon Dioxide Anion Gap BUN Creatinine Estim Creat Clear Calc Est GFR (MDRD) Af Amer Est GFR (MDRD) Non-Af BUN/Creatinine Ratio Glucose Lactic Acid Calcium Total Bilirubin 0.50 Direct Bilirubin 0.14 AST 35 ALT < 6 L Alkaline Phosphatase 81 Ammonia Total Creatine Kinase Troponin I Total Protein 7.5 Albumin 2.9 L Globulin 4.6 H Cortisol Salicylates Urine Opiates Screen Urine Methadone Screen Ur Barbiturates Screen Ur Phencyclidine Scrn Ur Amphetamines Screen U Methamphetamin-MDMA U Benzodiazepines Scrn Urine Cocaine Screen U Cannabinoids Screen Ur Drug Screen Comment Ethyl Alcohol S.aureus Protein A PCR MRSA (PCR) 08/13/18 08/13/18 08/13/18 06:02 06:02 09:24 WBC 9.3 RBC 3.47 L Hgb 10.7 L Hct 34.8 L MCV 100.3 H MCH 30.8 MCHC 30.7 L RDW 16.4 H RDW Differential 59.4 H Plt Count 205 MPV 9.5 Immature Gran % (Auto) 0.200 Neut % (Auto) 73.5 H Lymph % (Auto) 14.5 L [place] % (Auto) 10.1 H Eos % (Auto) 1.7 Baso % (Auto) 0.0 Absolute Neuts (auto) 6.9 Absolute Lymphs (auto) 1.35 Total Counted Not Reportable Specimen Type Sample Site pH Bicarbonate Actual POC Total CO2 Base Excess O2 Saturation ABG pCO2 ABG pO2 Romeo Test O2 Delivery Device Liter Flow Blood Gas Notified Whom Blood Gas Notified Time Sodium 145 Potassium 4.7 Chloride 110 H Carbon Dioxide 24.0 Anion Gap 11 BUN 59 H Creatinine 8.36 H* Estim Creat Clear Calc 6.41 Est GFR (MDRD) Af Amer 7 L Est GFR (MDRD) Non-Af 6 L BUN/Creatinine Ratio 7.1 L Glucose 96 Lactic Acid Calcium 9.0 Total Bilirubin Direct Bilirubin AST ALT Alkaline Phosphatase Ammonia Total Creatine Kinase Troponin I Total Protein Albumin Globulin Cortisol Salicylates Urine Opiates Screen Urine Methadone Screen Ur Barbiturates Screen Ur Phencyclidine Scrn Ur Amphetamines Screen U Methamphetamin-MDMA U Benzodiazepines Scrn Urine Cocaine Screen U Cannabinoids Screen Ur Drug Screen Comment Ethyl Alcohol S.aureus Protein A PCR NEGATIVE MRSA (PCR) Negative 08/13/18 08/13/18 08/13/18 10:30 10:30 10:30 WBC RBC Hgb Hct MCV MCH MCHC RDW RDW Differential Plt Count MPV Immature Gran % (Auto) Neut % (Auto) Lymph % (Auto) [place] % (Auto) Eos % (Auto) Baso % (Auto) Absolute Neuts (auto) Absolute Lymphs (auto) Total Counted Specimen Type Sample Site pH Bicarbonate Actual POC Total CO2 Base Excess O2 Saturation ABG pCO2 ABG pO2 Romeo Test O2 Delivery Device Liter Flow Blood Gas Notified Whom Blood Gas Notified Time Sodium Potassium Chloride Carbon Dioxide Anion Gap BUN Creatinine Estim Creat Clear Calc Est GFR (MDRD) Af Amer Est GFR (MDRD) Non-Af BUN/Creatinine Ratio Glucose Lactic Acid Calcium Total Bilirubin Direct Bilirubin AST ALT Alkaline Phosphatase Ammonia Total Creatine Kinase Troponin I Total Protein Albumin Globulin Cortisol 27.70 H Salicylates < 1.7 L Urine Opiates Screen Urine Methadone Screen Ur Barbiturates Screen Ur Phencyclidine Scrn Ur Amphetamines Screen U Methamphetamin-MDMA U Benzodiazepines Scrn Urine Cocaine Screen U Cannabinoids Screen Ur Drug Screen Comment Ethyl Alcohol 3.0 S.aureus Protein A PCR MRSA (PCR) POC Glucose 08/13/18 08/13/18 08/13/18 12:05 08:08 04:01 POC Glucose 122 H 121 H 106 08/13/18 08/13/18 08/13/18 03:00 02:01 01:10 POC Glucose 83 127 H 74 08/13/18 08/12/18 08/12/18 00:06 23:08 21:58 POC Glucose 92 104 99 08/12/18 08/12/18 08/12/18 20:44 19:31 18:53 POC Glucose 136 H 155 H 56 L 08/12/18 15:26 POC Glucose 70 Clinical Impression(s) from Imaging Studies Brain CT 08/12/18 15:45 IMPRESSION: 1. No acute intracranial pathology. 2. Stable borderline expansile polyp or mucocele in the anterior right ethmoid sinus, contiguous with the opacified right frontal sinus. Changes of prior medial wall antrectomies and resection of the ethmoid sinus floors again noted. The moderate bilateral mucoperiosteal thickening of the maxillary sinuses on prior study has cleared. Electronically Signed: Richardson Sky MD at 16:47 EST , Service support , Cervical Spine CT 08/12/18 15:47 IMPRESSION: 1. No acute fracture of the cervical spine. 2. Minor multilevel degenerative changes, as described above. Electronically Signed: Richardson Sky MD at 16:54 EST , Service support , Chest X-Ray 08/12/18 15:50 IMPRESSION: 1. Suboptimal inspiratory effort with minor left base crowding. 2. Right chest wall dialysis catheter unchanged. The left subclavian MediPort seen on prior study has been removed. Electronically Signed: Richardson Sky MD at 16:21 EST , Service support , Brain MRI 08/12/18 20:26 IMPRESSION: Unremarkable unenhanced MRI of the brain. Electronically Signed: Eliza Cheek MD at 10:11 EST Tel , Service support , KUB X-Ray 08/12/18 21:40 IMPRESSION: Nasogastric tube with tip at the GE junction. It needs to be advanced further by 8 to 9 cm. Electronically Signed: Abiodun Johnson DO at 22:28 EST Tel [phone], Service support , KUB X-Ray 08/12/18 22:43 IMPRESSION: Nasogastric tube with tip at the GE junction. No significant interval changes. Electronically Signed: Abiodun Johnson DO at 23:26 EST Tel [phone], Service support , KUB X-Ray 08/13/18 00:20 Assessment/Plan All Active Problems (Last Updated 08/13/18 @ 08:57 by Lele Garcia MD) Encephalopathy acute (Acute) Acute renal failure (Resolved) Chronic kidney disease (Resolved) Dehydration with hyponatremia (Resolved) Hyperkalemia (Resolved) Unresponsiveness (Resolved) 1. ESRD HD MWF. DIalysis today for missed tx yesterday. 2. Encephalopathy improved 3. DM2 primary mgmt 4. HTN BP elevated. Resume home meds 5. SLE 6. ANemia 7. Hx seizures 8. Infected access site with serratia. Continue cefepime for 3 more doses
[2018-08-13] MEDS: LINAGLIPTIN 5 MG TABLET PO (14:00)
[2018-08-13] MEDS: Famotidine 20 MG Tablet 40 MG PO (14:00)
[2018-08-13 14:11] LABS: Bedside Glucose 80 mg/dL (70-110)
[2018-08-13 14:11] LABS: Bedside Glucose 78 mg/dL (70-110)
[2018-08-13 14:11] LABS: Bedside Glucose 102 mg/dL (70-110)
[2018-08-13 14:51] LABS: Bedside Glucose 144 mg/dL (70-110)
[2018-08-13] MEDS: Hydroxychloroquine 200 MG Tablet PO (15:23)
[2018-08-13] MEDS: Acetaminophen 325 MG Tablet 650 MG PO (19:08)
[2018-08-13] MEDS: Pregabalin 75 MG Capsule PO (21:14)
[2018-08-13 21:30] LABS: Bedside Glucose 106 mg/dL (70-110)
[2018-08-13] MEDS: Baclofen 10 MG Tablet 20 MG PO (23:53)
[2018-08-13] MEDS: Glycerin/Hypromellose/PEG400 15 ml Bottle EACH EYE (23:54)
[2018-08-14] VITALS (13 sets, daily range): BP systolic 115–149; BP diastolic 63–80; PULSE 78–99; RESP 16–18; TEMP 36.4–36.7; O2SAT 95–100
--- NOTE | 2018-08-14 00:06 | NURSING ---
Pt given Baclofen evening dose. Pt reports not being offered this med in the evening, and requesting it now.
[2018-08-14] MEDS: Acetaminophen 325 MG Tablet 650 MG PO ×2 (03:23→15:13)
--- NOTE | 2018-08-14 04:10 | EKG12_ITS ---
Test Reason : CP Blood Pressure : / mmHG Vent. Rate : 085 BPM Atrial Rate : 085 BPM P-R Int : 150 ms QRS Dur : 090 ms QT Int : 376 ms P-R-T Axes : 014 028 124 degrees QTc Int : 447 ms Normal sinus rhythm Nonspecific ST and T wave abnormality Abnormal ECG Confirmed by DALE GARCIA, ISABELA ([id number]), proposal editor CESAR SIMEON ([id number] on 08/18/2018 2:16:06 PM Referred By: DR CERON Confirmed By:ISABELA HUNTER MD
[2018-08-14] MEDS: Heparin Injection (Vial) 5,000 UNIT/ML VIAL 5000 UNIT SC ×3 (06:08→21:05)
[2018-08-14] MEDS: Methylphenidate HCl 5 MG Tablet 10 MG PO (06:08)
[2018-08-14 06:33] LABS: Absolute Lymphocyte Count 2.15 X10^3/ul (0.83-4.51); Absolute Neutrophil Count 4.5 X10^3/uL (2.0-7.7); Eosinophil# 0.15 X10^3/uL; Hematocrit 31.7 % (37-47); Hemoglobin 9.7 g/dl (12.0-15.0); Lymphocyte # 2.15 X10^3/ul (4.0); Lymphocyte % 28.4 % (19-41); Mean Corp Hgb Conc 30.6 g/gl (32-36); Mean Corpuscular Hgb 30.5 pg (27.0-32.0); Mean Corpuscular Volume 99.7 fL (81-99); Mean Platelet Vol. 9.6 fl (6.2-12.0); Monocyte# 0.78 X10^3/uL; Monocyte% 10.3 % (0-10); Neutrophil # 4.47 X10^3/uL (2.7-7.7); Neutrophil % 58.9 % (47-70); Platelet Count 168 K/mm3 (150-450); RBC Distribution Width CV 16.6 % (11.6-14.6); Red Blood Count 3.18 M/mm3 (4.2-5.4); White Blood Count 7.6 K/mm3 (4.4-11.0)
[2018-08-14 06:55] LABS: Bedside Glucose 138 mg/dL (70-110)
[2018-08-14 07:08] LABS: POSITIVE COUNT NO; POSITIVE DIFFERENTIAL NO; POSITIVE MORPHOLOGY NO
[2018-08-14 07:33] LABS: ALB/GLOB Ratio 0.6 RATIO (0.9-2.4); AST(SGOT) 34 U/L (15-37); Alanine Aminotransfer ALT/SGPT 8 U/L (13-56); Albumin, Serum 2.5 g/dL (3.2-5.0); Alkaline Phosphatase 72 U/L (45-117); Anion Gap 11 (5-15); BUN 41 mg/dL (7-18); Calcium,Total 8.8 mg/dL (8.5-10.1); Chloride 101 mmol/L (98-107); Creatinine, Serum 6.81 mg/dL (0.55-1.02); EST Glomerular Filtration Rate 7 mL/min (>60); Est Glom Filt Rate - Afr Amer 8 mL/min (>60); Estimated Creatinine Clearance 7.87 ml/min; Globulin 4.3 g/dL (2.2-4.2); Glucose 80 mg/dL (74-106); Potassium 4.2 mmol/L (3.5-5.1); Protein, Total 6.8 g/dL (6.4-8.2); Sodium Level 137 mmol/L (136-145)
--- NOTE | 2018-08-14 07:52 | VDUE_ITS ---
Reason For Study: RUE swelling Right Proximal Jugular vein not imaged due to dialysis access placement. Short segment of Subclavian imaged with color and doppler. Right Lower Arm Right radial vein is compressible. Right ulnar vein is compressible. Right Arm Right axillary vein is spontaneous, patent, phasic, competent, compressible and demonstrates augmentation. Right brachial vein is compressible. Right cephalic vein is compressible. Right basilic vein is compressible. Interpretation Summary No evidence for acute deep venous thrombosis[right] upper extremity with patent and compressible cephalic and basilic veins. Ordering Physician: Lele Garcia Referring Physician: Mitchell Bowen Chi Performed By: Abigail Ventura RVT ?
[2018-08-14] MEDS: SEVELAMER CARBONATE 800 MG TABLET 3200 MG PO ×2 (07:54→12:28)
[2018-08-14] MEDS: Hydroxychloroquine 200 MG Tablet PO ×2 (07:56→16:40)
[2018-08-14] MEDS: Baclofen 10 MG Tablet PO (07:56)
[2018-08-14] MEDS: Multivitamins,Therapeutic Tablet 1 TABLET PO (07:56)
[2018-08-14] MEDS: predniSONE 5 MG Tablet PO (07:56)
--- NOTE | 2018-08-14 08:13 | PCM.PROGNOTE ---
Patient Problems: Active and Suspected Problems (Last Updated 08/13/18 @ 13:59 by Lele Garcia MD) Encephalopathy acute (Acute) Subjective: Chief complaint: Follow-up after admission for altered mental status/acute encephalopathy, infected right elbow wound/access site with Serratia. Patient seen and examined. No acute events overnight. Today, she is alert and oriented x3. She denied any significant complaints. She mentioned that she thinks she was very lethargic yesterday and sleepy because of her narcolepsy. Her vital signs are stable. - Physical Exam General: Alert, Oriented x3, Cooperative, No apparent distress HEENT: Atraumatic, PERRLA, EOMI, Normocephalic Oral: Moist Mucosa, No Gingival or Mucosal Lesions/ Ulcerations Neck: Supple, No JVD, Negative Carotid Bruits, Trachea Midline, Thyroid Normal Size and Texture Lungs: Clear to auscultation, No rhonchi, No wheeze, No rales, Diminished Cardiovascular: Regular rate, Regular Rhythm, Normal S1, Normal S2, No murmurs, PMI Normal Abdomen: Bowel Sounds Present, Soft, Non Tender, Non-Distended, No Hepato-splenomegaly Extremities: No clubbing, No cyanosis, No edema, - - Right upper extremity: Linear laceration on the medial aspect of the right elbow with minimal drainage, minimal surrounding erythema and seemed to be chronic. Skin: No rashes, Ulcer/ Wound Lymphatic: No Cervical, Supraclavicular, or Inguinal Adenopathy Neurological: Cranial nerves II-XII grossly intact, Motor Exam 5/5 strength throughout Psych/Mental Status: Normal Affect, Appropriate, Alert and oriented to time, place, person, mood and affect Vital Signs Temp Pulse Resp BP Pulse Ox 98.0 F 97 18 115/63 95 08/14/18 03:26 08/14/18 03:26 08/14/18 03:26 08/14/18 03:26 08/14/18 07:46 Oxygen Flow Rate (L/min) 2 Oxygen Delivery Method Room Air Weight: 156 lb 1.396 oz Body Mass Index (BMI) 28.7 Finger Stick Blood Glucose 155 Intake and Output for Last 24 Hours 08/12/18 08/13/18 08/14/18 23:59 23:59 23:59 Intake Total 1235 / 1235 360 / 360 Output Total 1100 / 1100 Balance 135 / 135 360 / 360 Laboratory Tests Past 24 Hrs 08/13/18 08/13/18 08/13/18 06:01 09:24 10:30 WBC RBC Hgb Hct MCV MCH MCHC RDW RDW Differential Plt Count MPV Immature Gran % (Auto) Neut % (Auto) Lymph % (Auto) [place] % (Auto) Eos % (Auto) Baso % (Auto) Absolute Neuts (auto) Absolute Lymphs (auto) Total Counted Sodium Potassium Chloride Carbon Dioxide Anion Gap BUN Creatinine Estim Creat Clear Calc Est GFR (MDRD) Af Amer Est GFR (MDRD) Non-Af BUN/Creatinine Ratio Glucose Calcium Total Bilirubin 0.50 Direct Bilirubin 0.14 AST 35 ALT < 6 L Alkaline Phosphatase 81 Total Protein 7.5 Albumin 2.9 L Globulin 4.6 H Albumin/Globulin Ratio Cortisol Salicylates < 1.7 L Ethyl Alcohol S.aureus Protein A PCR NEGATIVE MRSA (PCR) Negative 08/13/18 08/13/18 08/14/18 10:30 10:30 06:12 WBC 7.6 RBC 3.18 L Hgb 9.7 L Hct 31.7 L MCV 99.7 H MCH 30.5 MCHC 30.6 L RDW 16.6 H RDW Differential 60.0 H Plt Count 168 MPV 9.6 Immature Gran % (Auto) 0.400 Neut % (Auto) 58.9 Lymph % (Auto) 28.4 [place] % (Auto) 10.3 H Eos % (Auto) 2.0 Baso % (Auto) 0.0 Absolute Neuts (auto) 4.5 Absolute Lymphs (auto) 2.15 Total Counted Not Reportable Sodium Potassium Chloride Carbon Dioxide Anion Gap BUN Creatinine Estim Creat Clear Calc Est GFR (MDRD) Af Amer Est GFR (MDRD) Non-Af BUN/Creatinine Ratio Glucose Calcium Total Bilirubin Direct Bilirubin AST ALT Alkaline Phosphatase Total Protein Albumin Globulin Albumin/Globulin Ratio Cortisol 27.70 H Salicylates Ethyl Alcohol 3.0 S.aureus Protein A PCR MRSA (PCR) 08/14/18 06:12 WBC RBC Hgb Hct MCV MCH MCHC RDW RDW Differential Plt Count MPV Immature Gran % (Auto) Neut % (Auto) Lymph % (Auto) [place] % (Auto) Eos % (Auto) Baso % (Auto) Absolute Neuts (auto) Absolute Lymphs (auto) Total Counted Sodium 137 Potassium 4.2 Chloride 101 Carbon Dioxide 25.0 Anion Gap 11 BUN 41 H Creatinine 6.81 H Estim Creat Clear Calc 7.87 Est GFR (MDRD) Af Amer 8 L Est GFR (MDRD) Non-Af 7 L BUN/Creatinine Ratio 6.0 L Glucose 80 Calcium 8.8 Total Bilirubin 0.50 Direct Bilirubin AST 34 ALT 8 L Alkaline Phosphatase 72 Total Protein 6.8 Albumin 2.5 L Globulin 4.3 H Albumin/Globulin Ratio 0.6 L Cortisol Salicylates Ethyl Alcohol S.aureus Protein A PCR MRSA (PCR) POC Glucose 08/14/18 08/13/18 08/13/18 06:50 21:18 14:38 POC Glucose 138 H 106 144 H 08/13/18 08/13/18 08/13/18 12:05 07:02 06:06 POC Glucose 122 H 102 78 08/13/18 05:22 POC Glucose 80 Laboratory Tests 08/14/18 08/14/18 08/14/18 Range/Units 06:50 06:12 06:12 WBC 7.6 (4.4-11.0) K/mm3 RBC 3.18 L (4.2-5.4) M/mm3 Hgb 9.7 L (12.0-15.0) g/dl Hct 31.7 L (37-47) % MCV 99.7 H (81-99) fL MCH 30.5 (27.0-32.0) pg MCHC 30.6 L (32-36) g/gl RDW 16.6 H (11.6-14.6) % RDW Differential 60.0 H (35.1-43.9) fl Plt Count 168 (150-450) K/mm3 MPV 9.6 (6.2-12.0) fl Immature Gran % (Auto) 0.400 (0.0-0.9) % Neut % (Auto) 58.9 (47-70) % Lymph % (Auto) 28.4 (19-41) % [place] % (Auto) 10.3 H (0-10) % Eos % (Auto) 2.0 (0-5) % Baso % (Auto) 0.0 (0-1) % Absolute Neuts (auto) 4.5 (2.0-7.7) X10^3/uL Absolute Lymphs (auto) 2.15 (0.83-4.51) X10^3/ul Total Counted Not Reportable Sodium 137 (136-145) mmol/L Potassium 4.2 (3.5-5.1) mmol/L Chloride 101 (98-107) mmol/L Carbon Dioxide 25.0 (21.0-32.0) mmol/L Anion Gap 11 (5-15) BUN 41 H (7-18) mg/dL Creatinine 6.81 H (0.55-1.02) mg/dL Estim Creat Clear Calc 7.87 ml/min Est GFR (MDRD) Af Amer 8 L (>60) mL/min Est GFR (MDRD) Non-Af 7 L (>60) mL/min BUN/Creatinine Ratio 6.0 L (10-20) RATIO Glucose 80 (74-106) mg/dL Calcium 8.8 (8.5-10.1) mg/dL Total Bilirubin 0.50 (0.20-1.00) mg/dL Direct Bilirubin (0.00-0.30) mg/dL AST 34 (15-37) U/L ALT 8 L (13-56) U/L Alkaline Phosphatase 72 (45-117) U/L Total Protein 6.8 (6.4-8.2) g/dL Albumin 2.5 L (3.2-5.0) g/dL Globulin 4.3 H (2.2-4.2) g/dL Albumin/Globulin Ratio 0.6 L (0.9-2.4) RATIO Cortisol (3.09-22.40) ug/dL Salicylates (2.8-20.0) mg/dL Ethyl Alcohol mg/dL S.aureus Protein A PCR (Negative) MRSA (PCR) (Negative) POC Glucose 138 H (70-110) mg/dL 08/13/18 08/13/18 08/13/18 Range/Units 21:18 14:38 12:05 WBC (4.4-11.0) K/mm3 RBC (4.2-5.4) M/mm3 Hgb (12.0-15.0) g/dl Hct (37-47) % MCV (81-99) fL MCH (27.0-32.0) pg MCHC (32-36) g/gl RDW (11.6-14.6) % RDW Differential (35.1-43.9) fl Plt Count (150-450) K/mm3 MPV (6.2-12.0) fl Immature Gran % (Auto) (0.0-0.9) % Neut % (Auto) (47-70) % Lymph % (Auto) (19-41) % [place] % (Auto) (0-10) % Eos % (Auto) (0-5) % Baso % (Auto) (0-1) % Absolute Neuts (auto) (2.0-7.7) X10^3/uL Absolute Lymphs (auto) (0.83-4.51) X10^3/ul Total Counted Sodium (136-145) mmol/L Potassium (3.5-5.1) mmol/L Chloride (98-107) mmol/L Carbon Dioxide (21.0-32.0) mmol/L Anion Gap (5-15) BUN (7-18) mg/dL Creatinine (0.55-1.02) mg/dL Estim Creat Clear Calc ml/min Est GFR (MDRD) Af Amer (>60) mL/min Est GFR (MDRD) Non-Af (>60) mL/min BUN/Creatinine Ratio (10-20) RATIO Glucose (74-106) mg/dL Calcium (8.5-10.1) mg/dL Total Bilirubin (0.20-1.00) mg/dL Direct Bilirubin (0.00-0.30) mg/dL AST (15-37) U/L ALT (13-56) U/L Alkaline Phosphatase (45-117) U/L Total Protein (6.4-8.2) g/dL Albumin (3.2-5.0) g/dL Globulin (2.2-4.2) g/dL Albumin/Globulin Ratio (0.9-2.4) RATIO Cortisol (3.09-22.40) ug/dL Salicylates (2.8-20.0) mg/dL Ethyl Alcohol mg/dL S.aureus Protein A PCR (Negative) MRSA (PCR) (Negative) POC Glucose 106 144 H 122 H (70-110) mg/dL 08/13/18 08/13/18 08/13/18 Range/Units 10:30 10:30 10:30 WBC (4.4-11.0) K/mm3 RBC (4.2-5.4) M/mm3 Hgb (12.0-15.0) g/dl Hct (37-47) % MCV (81-99) fL MCH (27.0-32.0) pg MCHC (32-36) g/gl RDW (11.6-14.6) % RDW Differential (35.1-43.9) fl Plt Count (150-450) K/mm3 MPV (6.2-12.0) fl Immature Gran % (Auto) (0.0-0.9) % Neut % (Auto) (47-70) % Lymph % (Auto) (19-41) % [place] % (Auto) (0-10) % Eos % (Auto) (0-5) % Baso % (Auto) (0-1) % Absolute Neuts (auto) (2.0-7.7) X10^3/uL Absolute Lymphs (auto) (0.83-4.51) X10^3/ul Total Counted Sodium (136-145) mmol/L Potassium (3.5-5.1) mmol/L Chloride (98-107) mmol/L Carbon Dioxide (21.0-32.0) mmol/L Anion Gap (5-15) BUN (7-18) mg/dL Creatinine (0.55-1.02) mg/dL Estim Creat Clear Calc ml/min Est GFR (MDRD) Af Amer (>60) mL/min Est GFR (MDRD) Non-Af (>60) mL/min BUN/Creatinine Ratio (10-20) RATIO Glucose (74-106) mg/dL Calcium (8.5-10.1) mg/dL Total Bilirubin (0.20-1.00) mg/dL Direct Bilirubin (0.00-0.30) mg/dL AST (15-37) U/L ALT (13-56) U/L Alkaline Phosphatase (45-117) U/L Total Protein (6.4-8.2) g/dL Albumin (3.2-5.0) g/dL Globulin (2.2-4.2) g/dL Albumin/Globulin Ratio (0.9-2.4) RATIO Cortisol 27.70 H (3.09-22.40) ug/dL Salicylates < 1.7 L (2.8-20.0) mg/dL Ethyl Alcohol 3.0 mg/dL S.aureus Protein A PCR (Negative) MRSA (PCR) (Negative) POC Glucose (70-110) mg/dL 08/13/18 08/13/18 08/13/18 Range/Units 09:24 07:02 06:06 WBC (4.4-11.0) K/mm3 RBC (4.2-5.4) M/mm3 Hgb (12.0-15.0) g/dl Hct (37-47) % MCV (81-99) fL MCH (27.0-32.0) pg MCHC (32-36) g/gl RDW (11.6-14.6) % RDW Differential (35.1-43.9) fl Plt Count (150-450) K/mm3 MPV (6.2-12.0) fl Immature Gran % (Auto) (0.0-0.9) % Neut % (Auto) (47-70) % Lymph % (Auto) (19-41) % [place] % (Auto) (0-10) % Eos % (Auto) (0-5) % Baso % (Auto) (0-1) % Absolute Neuts (auto) (2.0-7.7) X10^3/uL Absolute Lymphs (auto) (0.83-4.51) X10^3/ul Total Counted Sodium (136-145) mmol/L Potassium (3.5-5.1) mmol/L Chloride (98-107) mmol/L Carbon Dioxide (21.0-32.0) mmol/L Anion Gap (5-15) BUN (7-18) mg/dL Creatinine (0.55-1.02) mg/dL Estim Creat Clear Calc ml/min Est GFR (MDRD) Af Amer (>60) mL/min Est GFR (MDRD) Non-Af (>60) mL/min BUN/Creatinine Ratio (10-20) RATIO Glucose (74-106) mg/dL Calcium (8.5-10.1) mg/dL Total Bilirubin (0.20-1.00) mg/dL Direct Bilirubin (0.00-0.30) mg/dL AST (15-37) U/L ALT (13-56) U/L Alkaline Phosphatase (45-117) U/L Total Protein (6.4-8.2) g/dL Albumin (3.2-5.0) g/dL Globulin (2.2-4.2) g/dL Albumin/Globulin Ratio (0.9-2.4) RATIO Cortisol (3.09-22.40) ug/dL Salicylates (2.8-20.0) mg/dL Ethyl Alcohol mg/dL S.aureus Protein A PCR NEGATIVE (Negative) MRSA (PCR) Negative (Negative) POC Glucose 102 78 (70-110) mg/dL 08/13/18 08/13/18 Range/Units 06:01 05:22 WBC (4.4-11.0) K/mm3 RBC (4.2-5.4) M/mm3 Hgb (12.0-15.0) g/dl Hct (37-47) % MCV (81-99) fL MCH (27.0-32.0) pg MCHC (32-36) g/gl RDW (11.6-14.6) % RDW Differential (35.1-43.9) fl Plt Count (150-450) K/mm3 MPV (6.2-12.0) fl Immature Gran % (Auto) (0.0-0.9) % Neut % (Auto) (47-70) % Lymph % (Auto) (19-41) % [place] % (Auto) (0-10) % Eos % (Auto) (0-5) % Baso % (Auto) (0-1) % Absolute Neuts (auto) (2.0-7.7) X10^3/uL Absolute Lymphs (auto) (0.83-4.51) X10^3/ul Total Counted Sodium (136-145) mmol/L Potassium (3.5-5.1) mmol/L Chloride (98-107) mmol/L Carbon Dioxide (21.0-32.0) mmol/L Anion Gap (5-15) BUN (7-18) mg/dL Creatinine (0.55-1.02) mg/dL Estim Creat Clear Calc ml/min Est GFR (MDRD) Af Amer (>60) mL/min Est GFR (MDRD) Non-Af (>60) mL/min BUN/Creatinine Ratio (10-20) RATIO Glucose (74-106) mg/dL Calcium (8.5-10.1) mg/dL Total Bilirubin 0.50 (0.20-1.00) mg/dL Direct Bilirubin 0.14 (0.00-0.30) mg/dL AST 35 (15-37) U/L ALT < 6 L (13-56) U/L Alkaline Phosphatase 81 (45-117) U/L Total Protein 7.5 (6.4-8.2) g/dL Albumin 2.9 L (3.2-5.0) g/dL Globulin 4.6 H (2.2-4.2) g/dL Albumin/Globulin Ratio (0.9-2.4) RATIO Cortisol (3.09-22.40) ug/dL Salicylates (2.8-20.0) mg/dL Ethyl Alcohol mg/dL S.aureus Protein A PCR (Negative) MRSA (PCR) (Negative) POC Glucose 80 (70-110) mg/dL Clinical Impression(s) from Imaging Studies Brain CT 08/12/18 15:45 IMPRESSION: 1. No acute intracranial pathology. 2. Stable borderline expansile polyp or mucocele in the anterior right ethmoid sinus, contiguous with the opacified right frontal sinus. Changes of prior medial wall antrectomies and resection of the ethmoid sinus floors again noted. The moderate bilateral mucoperiosteal thickening of the maxillary sinuses on prior study has cleared. Electronically Signed: Richardson Sky MD at 16:47 EST , Service support , Cervical Spine CT 08/12/18 15:47 IMPRESSION: 1. No acute fracture of the cervical spine. 2. Minor multilevel degenerative changes, as described above. Electronically Signed: Richardson Sky MD at 16:54 EST , Service support , Chest X-Ray 08/12/18 15:50 IMPRESSION: 1. Suboptimal inspiratory effort with minor left base crowding. 2. Right chest wall dialysis catheter unchanged. The left subclavian MediPort seen on prior study has been removed. Electronically Signed: Richardson Sky MD at 16:21 EST , Service support , Brain MRI 08/12/18 20:26 IMPRESSION: Unremarkable unenhanced MRI of the brain. Electronically Signed: Eliza Cheek MD at 10:11 EST Tel , Service support , KUB X-Ray 08/12/18 21:40 IMPRESSION: Nasogastric tube with tip at the GE junction. It needs to be advanced further by 8 to 9 cm. Electronically Signed: Abiodun Johnson DO at 22:28 EST Tel [phone], Service support , KUB X-Ray 08/12/18 22:43 IMPRESSION: Nasogastric tube with tip at the GE junction. No significant interval changes. Electronically Signed: Abiodun oJhnson DO at 23:26 EST Tel [phone], Service support , KUB X-Ray 08/13/18 00:[address] 08/13/18 09:53 IMPRESSION: There is incomplete visualization of pocket of gas formation in and around the age-indeterminate right-sided IJ in the chest recommend dedicated CT scan of the chest if possible obtaining CT scan of the chest and right upper extremity. Consider recent postoperative change and/or infection which is partially visualized on this study. An ultrasound is suggested to evaluate for deep venous thrombosis given that the edema appears to extend from the right chest to the wrist. Additionally there is a pocket of fluid in the antecubital fossa near surgical clips which may represent a focal abscess and/or evolving hematoma in the appropriate clinical setting recommend ultrasound for further evaluation. Electronically Signed: Carolina Becker MD at 17:52 EST Tel , Service support , Medical Necessity - Tobacco Use Smoking Status: Unknown if ever smoked Assessment/Plan All Active Problems (Last Updated 08/13/18 @ 13:59 by Lele Garcia MD) Encephalopathy acute (Acute) This is a 47 years old female patient presented to the emergency room because of change in mental status, found to have acute encephalopathy probably metabolic, found to have right infected wound/cellulitis. #1 acute encephalopathy: Probably due to narcolepsy. Resolved, today, patient is alert and oriented x3. Her vital signs are stable. CT scan brain without findings. MRI brain showed no acute infarction or hemorrhage. Urine drug screen was negative. Blood alcohol level was low. LFT and ammonia was normal. Serum cortisol was even high. #2 right elbow cellulitis/infected wound/access site: Reportedly, she has Serratia in the wound culture and she has been on IV cefepime and IV Unasyn. IV Unasyn discontinued this morning. CT scan of the right upper extremity revealed probable pocket of gas formation in and around the right side IJ dialysis catheter and also edema extending from the right chest to the right wrist and pocket of fluid in the right antecubital fossa. Her vital signs are stable, afebrile. Plan: Venous Doppler of the right upper extremity, general surgery consult to evaluate the right IJ dialysis catheter #3 ESRD on hemodialysis: Status post dialysis yesterday, stable. BUN, creatinine and potassium are stable. Nephrology on the case. #4 type 2 diabetes mellitus: Blood sugar stable, continue Tradjenta and sliding scale. #5 SLE/lupus nephritis: Continue prednisone. #6 hypertension: Blood pressure improved, continue metoprolol. Continue IV hydralazine as needed #7 chronic anemia: Hemoglobin has been around 10-12 g/dL. Admission hemoglobin is 10.7 g/dL, today's hemoglobin is 9.7 g/dL, stable at baseline. #8 DVT prophylaxis: Subcu heparin. This note was generated with [employer] software. It may contain incorrect words, spelling, and punctuation that were not noted in checking the note before signing. Code Visit Inpatient E&M: 16104 Subs Hosp L2
--- NOTE | 2018-08-14 08:20 | PN_ITS ---
Patient Problems: Active and Suspected Problems (Last Updated 08/13/18 @ 13:59 by Lele Garcia MD) Encephalopathy acute (Acute) Subjective: Chief complaint: Follow-up after admission for altered mental status/acute encephalopathy, infected right elbow wound/access site with Serratia. Patient seen and examined. No acute events overnight. Today, she is alert and oriented x3. She denied any significant complaints. She mentioned that she thinks she was very lethargic yesterday and sleepy because of her narcolepsy. Her vital signs are stable. - Physical Exam General: Alert, Oriented x3, Cooperative, No apparent distress HEENT: Atraumatic, PERRLA, EOMI, Normocephalic Oral: Moist Mucosa, No Gingival or Mucosal Lesions/ Ulcerations Neck: Supple, No JVD, Negative Carotid Bruits, Trachea Midline, Thyroid Normal Size and Texture Lungs: Clear to auscultation, No rhonchi, No wheeze, No rales, Diminished Cardiovascular: Regular rate, Regular Rhythm, Normal S1, Normal S2, No murmurs, PMI Normal Abdomen: Bowel Sounds Present, Soft, Non Tender, Non-Distended, No Hepato- splenomegaly Extremities: No clubbing, No cyanosis, No edema, - - Right upper extremity: Linear laceration on the medial aspect of the right elbow with minimal drainage, minimal surrounding erythema and seemed to be chronic. Skin: No rashes, Ulcer/ Wound Lymphatic: No Cervical, Supraclavicular, or Inguinal Adenopathy Neurological: Cranial nerves II-XII grossly intact, Motor Exam 5/5 strength throughout Psych/Mental Status: Normal Affect, Appropriate, Alert and oriented to time, place, person, mood and affect Vital Signs Temp Pulse Resp BP Pulse Ox 98.0 F 97 18 115/63 95 08/14/18 03:26 08/14/18 03:26 08/14/18 03:26 08/14/18 03:26 08/14/18 07:46 Oxygen Flow Rate (L/min) 2 Oxygen Delivery Method Room Air Weight: 156 lb 1.396 oz Body Mass Index (BMI) 28.7 Finger Stick Blood Glucose 155 Intake and Output for Last 24 Hours 08/12/18 08/13/18 08/14/18 23:59 23:59 23:59 Intake Total 1235 / 1235 360 / 360 Output Total 1100 / 1100 Balance 135 / 135 360 / 360 Laboratory Tests Past 24 Hrs 08/13/18 08/13/18 08/13/18 06:01 09:24 10:30 WBC RBC Hgb Hct MCV MCH MCHC RDW RDW Differential Plt Count MPV Immature Gran % (Auto) Neut % (Auto) Lymph % (Auto) B[place] % (Auto) Eos % (Auto) Baso % (Auto) Absolute Neuts (auto) Absolute Lymphs (auto) Total Counted Sodium Potassium Chloride Carbon Dioxide Anion Gap BUN Creatinine Estim Creat Clear Calc Est GFR (MDRD) Af Amer Est GFR (MDRD) Non-Af BUN/Creatinine Ratio Glucose Calcium Total Bilirubin 0.50 Direct Bilirubin 0.14 AST 35 ALT < 6 L Alkaline Phosphatase 81 Total Protein 7.5 Albumin 2.9 L Globulin 4.6 H Albumin/Globulin Ratio Cortisol Salicylates < 1.7 L Ethyl Alcohol S.aureus Protein A PCR NEGATIVE MRSA (PCR) Negative 08/13/18 08/13/18 08/14/18 10:30 10:30 06:12 WBC 7.6 RBC 3.18 L Hgb 9.7 L Hct 31.7 L MCV 99.7 H MCH 30.5 MCHC 30.6 L RDW 16.6 H RDW Differential 60.0 H Plt Count 168 MPV 9.6 Immature Gran % (Auto) 0.400 Neut % (Auto) 58.9 Lymph % (Auto) 28.4 Barrow % (Auto) 10.3 H Eos % (Auto) 2.0 Baso % (Auto) 0.0 Absolute Neuts (auto) 4.5 Absolute Lymphs (auto) 2.15 Total Counted Not Reportable Sodium Potassium Chloride Carbon Dioxide Anion Gap BUN Creatinine Estim Creat Clear Calc Est GFR (MDRD) Af Amer Est GFR (MDRD) Non-Af BUN/Creatinine Ratio Glucose Calcium Total Bilirubin Direct Bilirubin AST ALT Alkaline Phosphatase Total Protein Albumin Globulin Albumin/Globulin Ratio Cortisol 27.70 H Salicylates Ethyl Alcohol 3.0 S.aureus Protein A PCR MRSA (PCR) 08/14/18 06:12 WBC RBC Hgb Hct MCV MCH MCHC RDW RDW Differential Plt Count MPV Immature Gran % (Auto) Neut % (Auto) Lymph % (Auto) Barrow % (Auto) Eos % (Auto) Baso % (Auto) Absolute Neuts (auto) Absolute Lymphs (auto) Total Counted Sodium 137 Potassium 4.2 Chloride 101 Carbon Dioxide 25.0 Anion Gap 11 BUN 41 H Creatinine 6.81 H Estim Creat Clear Calc 7.87 Est GFR (MDRD) Af Amer 8 L Est GFR (MDRD) Non-Af 7 L BUN/Creatinine Ratio 6.0 L Glucose 80 Calcium 8.8 Total Bilirubin 0.50 Direct Bilirubin AST 34 ALT 8 L Alkaline Phosphatase 72 Total Protein 6.8 Albumin 2.5 L Globulin 4.3 H Albumin/Globulin Ratio 0.6 L Cortisol Salicylates Ethyl Alcohol S.aureus Protein A PCR MRSA (PCR) POC Glucose 08/14/18 08/13/18 08/13/18 06:50 21:18 14:38 POC Glucose 138 H 106 144 H 08/13/18 08/13/18 08/13/18 12:05 07:02 06:06 POC Glucose 122 H 102 78 08/13/18 05:22 POC Glucose 80 Laboratory Tests 08/14/18 08/14/18 08/14/18 Range/Units 06:50 06:12 06:12 WBC 7.6 (4.4-11.0) K/mm3 RBC 3.18 L (4.2-5.4) M/mm3 Hgb 9.7 L (12.0-15.0) g/dl Hct 31.7 L (37-47) % MCV 99.7 H (81-99) fL MCH 30.5 (27.0-32.0) pg MCHC 30.6 L (32-36) g/gl RDW 16.6 H (11.6-14.6) % RDW Differential 60.0 H (35.1-43.9) fl Plt Count 168 (150-450) K/mm3 MPV 9.6 (6.2-12.0) fl Immature Gran % (Auto) 0.400 (0.0-0.9) % Neut % (Auto) 58.9 (47-70) % Lymph % (Auto) 28.4 (19-41) % Barrow % (Auto) 10.3 H (0-10) % Eos % (Auto) 2.0 (0-5) % Baso % (Auto) 0.0 (0-1) % Absolute Neuts (auto) 4.5 (2.0-7.7) X10^3/uL Absolute Lymphs (auto) 2.15 (0.83-4.51) X10^3/ul Total Counted Not Reportable Sodium 137 (136-145) mmol/L Potassium 4.2 (3.5-5.1) mmol/L Chloride 101 (98-107) mmol/L Carbon Dioxide 25.0 (21.0-32.0) mmol/L Anion Gap 11 (5-15) BUN 41 H (7-18) mg/dL Creatinine 6.81 H (0.55-1.02) mg/dL Estim Creat Clear Calc 7.87 ml/min Est GFR (MDRD) Af Amer 8 L (>60) mL/min Est GFR (MDRD) Non-Af 7 L (>60) mL/min BUN/Creatinine Ratio 6.0 L (10-20) RATIO Glucose 80 (74-106) mg/dL Calcium 8.8 (8.5-10.1) mg/dL Total Bilirubin 0.50 (0.20-1.00) mg/dL Direct Bilirubin (0.00-0.30) mg/dL AST 34 (15-37) U/L ALT 8 L (13-56) U/L Alkaline Phosphatase 72 (45-117) U/L Total Protein 6.8 (6.4-8.2) g/dL Albumin 2.5 L (3.2-5.0) g/dL Globulin 4.3 H (2.2-4.2) g/dL Albumin/Globulin Ratio 0.6 L (0.9-2.4) RATIO Cortisol (3.09-22.40) ug/dL Salicylates (2.8-20.0) mg/dL Ethyl Alcohol mg/dL S.aureus Protein A PCR (Negative) MRSA (PCR) (Negative) POC Glucose 138 H (70-110) mg/dL 08/13/18 08/13/18 08/13/18 Range/Units 21:18 14:38 12:05 WBC (4.4-11.0) K/mm3 RBC (4.2-5.4) M/mm3 Hgb (12.0-15.0) g/dl Hct (37-47) % MCV (81-99) fL MCH (27.0-32.0) pg MCHC (32-36) g/gl RDW (11.6-14.6) % RDW Differential (35.1-43.9) fl Plt Count (150-450) K/mm3 MPV (6.2-12.0) fl Immature Gran % (Auto) (0.0-0.9) % Neut % (Auto) (47-70) % Lymph % (Auto) (19-41) % Barrow % (Auto) (0-10) % Eos % (Auto) (0-5) % Baso % (Auto) (0-1) % Absolute Neuts (auto) (2.0-7.7) X10^3/uL Absolute Lymphs (auto) (0.83-4.51) X10^3/ul Total Counted Sodium (136-145) mmol/L Potassium (3.5-5.1) mmol/L Chloride (98-107) mmol/L Carbon Dioxide (21.0-32.0) mmol/L Anion Gap (5-15) BUN (7-18) mg/dL Creatinine (0.55-1.02) mg/dL Estim Creat Clear Calc ml/min Est GFR (MDRD) Af Amer (>60) mL/min Est GFR (MDRD) Non-Af (>60) mL/min BUN/Creatinine Ratio (10-20) RATIO Glucose (74-106) mg/dL Calcium (8.5-10.1) mg/dL Total Bilirubin (0.20-1.00) mg/dL Direct Bilirubin (0.00-0.30) mg/dL AST (15-37) U/L ALT (13-56) U/L Alkaline Phosphatase (45-117) U/L Total Protein (6.4-8.2) g/dL Albumin (3.2-5.0) g/dL Globulin (2.2-4.2) g/dL Albumin/Globulin Ratio (0.9-2.4) RATIO Cortisol (3.09-22.40) ug/dL Salicylates (2.8-20.0) mg/dL Ethyl Alcohol mg/dL S.aureus Protein A PCR (Negative) MRSA (PCR) (Negative) POC Glucose 106 144 H 122 H (70-110) mg/dL 08/13/18 08/13/18 08/13/18 Range/Units 10:30 10:30 10:30 WBC (4.4-11.0) K/mm3 RBC (4.2-5.4) M/mm3 Hgb (12.0-15.0) g/dl Hct (37-47) % MCV (81-99) fL MCH (27.0-32.0) pg MCHC (32-36) g/gl RDW (11.6-14.6) % RDW Differential (35.1-43.9) fl Plt Count (150-450) K/mm3 MPV (6.2-12.0) fl Immature Gran % (Auto) (0.0-0.9) % Neut % (Auto) (47-70) % Lymph % (Auto) (19-41) % Barrow % (Auto) (0-10) % Eos % (Auto) (0-5) % Baso % (Auto) (0-1) % Absolute Neuts (auto) (2.0-7.7) X10^3/uL Absolute Lymphs (auto) (0.83-4.51) X10^3/ul Total Counted Sodium (136-145) mmol/L Potassium (3.5-5.1) mmol/L Chloride (98-107) mmol/L Carbon Dioxide (21.0-32.0) mmol/L Anion Gap (5-15) BUN (7-18) mg/dL Creatinine (0.55-1.02) mg/dL Estim Creat Clear Calc ml/min Est GFR (MDRD) Af Amer (>60) mL/min Est GFR (MDRD) Non-Af (>60) mL/min BUN/Creatinine Ratio (10-20) RATIO Glucose (74-106) mg/dL Calcium (8.5-10.1) mg/dL Total Bilirubin (0.20-1.00) mg/dL Direct Bilirubin (0.00-0.30) mg/dL AST (15-37) U/L ALT (13-56) U/L Alkaline Phosphatase (45-117) U/L Total Protein (6.4-8.2) g/dL Albumin (3.2-5.0) g/dL Globulin (2.2-4.2) g/dL Albumin/Globulin Ratio (0.9-2.4) RATIO Cortisol 27.70 H (3.09-22.40) ug/dL Salicylates < 1.7 L (2.8-20.0) mg/dL Ethyl Alcohol 3.0 mg/dL S.aureus Protein A PCR (Negative) MRSA (PCR) (Negative) POC Glucose (70-110) mg/dL 08/13/18 08/13/18 08/13/18 Range/Units 09:24 07:02 06:06 WBC (4.4-11.0) K/mm3 RBC (4.2-5.4) M/mm3 Hgb (12.0-15.0) g/dl Hct (37-47) % MCV (81-99) fL MCH (27.0-32.0) pg MCHC (32-36) g/gl RDW (11.6-14.6) % RDW Differential (35.1-43.9) fl Plt Count (150-450) K/mm3 MPV (6.2-12.0) fl Immature Gran % (Auto) (0.0-0.9) % Neut % (Auto) (47-70) % Lymph % (Auto) (19-41) % Barrow % (Auto) (0-10) % Eos % (Auto) (0-5) % Baso % (Auto) (0-1) % Absolute Neuts (auto) (2.0-7.7) X10^3/uL Absolute Lymphs (auto) (0.83-4.51) X10^3/ul Total Counted Sodium (136-145) mmol/L Potassium (3.5-5.1) mmol/L Chloride (98-107) mmol/L Carbon Dioxide (21.0-32.0) mmol/L Anion Gap (5-15) BUN (7-18) mg/dL Creatinine (0.55-1.02) mg/dL Estim Creat Clear Calc ml/min Est GFR (MDRD) Af Amer (>60) mL/min Est GFR (MDRD) Non-Af (>60) mL/min BUN/Creatinine Ratio (10-20) RATIO Glucose (74-106) mg/dL Calcium (8.5-10.1) mg/dL Total Bilirubin (0.20-1.00) mg/dL Direct Bilirubin (0.00-0.30) mg/dL AST (15-37) U/L ALT (13-56) U/L Alkaline Phosphatase (45-117) U/L Total Protein (6.4-8.2) g/dL Albumin (3.2-5.0) g/dL Globulin (2.2-4.2) g/dL Albumin/Globulin Ratio (0.9-2.4) RATIO Cortisol (3.09-22.40) ug/dL Salicylates (2.8-20.0) mg/dL Ethyl Alcohol mg/dL S.aureus Protein A PCR NEGATIVE (Negative) MRSA (PCR) Negative (Negative) POC Glucose 102 78 (70-110) mg/dL 08/13/18 08/13/18 Range/Units 06:01 05:22 WBC (4.4-11.0) K/mm3 RBC (4.2-5.4) M/mm3 Hgb (12.0-15.0) g/dl Hct (37-47) % MCV (81-99) fL MCH (27.0-32.0) pg MCHC (32-36) g/gl RDW (11.6-14.6) % RDW Differential (35.1-43.9) fl Plt Count (150-450) K/mm3 MPV (6.2-12.0) fl Immature Gran % (Auto) (0.0-0.9) % Neut % (Auto) (47-70) % Lymph % (Auto) (19-41) % Barrow % (Auto) (0-10) % Eos % (Auto) (0-5) % Baso % (Auto) (0-1) % Absolute Neuts (auto) (2.0-7.7) X10^3/uL Absolute Lymphs (auto) (0.83-4.51) X10^3/ul Total Counted Sodium (136-145) mmol/L Potassium (3.5-5.1) mmol/L Chloride (98-107) mmol/L Carbon Dioxide (21.0-32.0) mmol/L Anion Gap (5-15) BUN (7-18) mg/dL Creatinine (0.55-1.02) mg/dL Estim Creat Clear Calc ml/min Est GFR (MDRD) Af Amer (>60) mL/min Est GFR (MDRD) Non-Af (>60) mL/min BUN/Creatinine Ratio (10-20) RATIO Glucose (74-106) mg/dL Calcium (8.5-10.1) mg/dL Total Bilirubin 0.50 (0.20-1.00) mg/dL Direct Bilirubin 0.14 (0.00-0.30) mg/dL AST 35 (15-37) U/L ALT < 6 L (13-56) U/L Alkaline Phosphatase 81 (45-117) U/L Total Protein 7.5 (6.4-8.2) g/dL Albumin 2.9 L (3.2-5.0) g/dL Globulin 4.6 H (2.2-4.2) g/dL Albumin/Globulin Ratio (0.9-2.4) RATIO Cortisol (3.09-22.40) ug/dL Salicylates (2.8-20.0) mg/dL Ethyl Alcohol mg/dL S.aureus Protein A PCR (Negative) MRSA (PCR) (Negative) POC Glucose 80 (70-110) mg/dL Clinical Impression(s) from Imaging Studies Brain CT 08/12/18 15:45 IMPRESSION: 1. No acute intracranial pathology. 2. Stable borderline expansile polyp or mucocele in the anterior right ethmoid sinus, contiguous with the opacified right frontal sinus. Changes of prior medial wall antrectomies and resection of the ethmoid sinus floors again noted. The moderate bilateral mucoperiosteal thickening of the maxillary sinuses on prior study has cleared. Electronically Signed: Richardson Sky MD at 16:47 EST , Service support , Cervical Spine CT 08/12/18 15:47 IMPRESSION: 1. No acute fracture of the cervical spine. 2. Minor multilevel degenerative changes, as described above. Electronically Signed: Richardson Sky MD at 16:54 EST , Service support , Chest X-Ray 08/12/18 15:50 IMPRESSION: 1. Suboptimal inspiratory effort with minor left base crowding. 2. Right chest wall dialysis catheter unchanged. The left subclavian MediPort seen on prior study has been removed. Electronically Signed: Richardson Sky MD at 16:21 EST , Service support , Brain MRI 08/12/18 20:26 IMPRESSION: Unremarkable unenhanced MRI of the brain. Electronically Signed: Eliza Cheek MD at 10:11 EST Tel , Service support , KUB X-Ray 08/12/18 21:40 IMPRESSION: Nasogastric tube with tip at the GE junction. It needs to be advanced further by 8 to 9 cm. Electronically Signed: Abiodun Johnson DO at 22:28 EST Tel [phone], Service support , KUB X-Ray 08/12/18 22:43 IMPRESSION: Nasogastric tube with tip at the GE junction. No significant interval changes. Electronically Signed: Abiodun Johnson DO at 23:26 EST Tel [phone], Service support , KUB X-Ray 08/13/18 00:[address] 08/13/18 09:53 IMPRESSION: There is incomplete visualization of pocket of gas formation in and around the age-indeterminate right-sided IJ in the chest recommend dedicated CT scan of the chest if possible obtaining CT scan of the chest and right upper extremity. Consider recent postoperative change and/or infection which is partially visualized on this study. An ultrasound is suggested to evaluate for deep venous thrombosis given that the edema appears to extend from the right chest to the wrist. Additionally there is a pocket of fluid in the antecubital fossa near surgical clips which may represent a focal abscess and/or evolving hematoma in the appropriate clinical setting recommend ultrasound for further evaluation. Electronically Signed: Carolina Becker MD at 17:52 EST Tel , Service support , Medical Necessity - Tobacco Use Smoking Status: Unknown if ever smoked Assessment/Plan All Active Problems (Last Updated 08/13/18 @ 13:59 by Lele Garcia MD) Encephalopathy acute (Acute) This is a 47 years old female patient presented to the emergency room because of change in mental status, found to have acute encephalopathy probably metabolic, found to have right infected wound/cellulitis. #1 acute encephalopathy: Probably due to narcolepsy. Resolved, today, patient is alert and oriented x3. Her vital signs are stable. CT scan brain without findings. MRI brain showed no acute infarction or hemorrhage. Urine drug screen was negative. Blood alcohol level was low. LFT and ammonia was normal. Serum cortisol was even high. #2 right elbow cellulitis/infected wound/access site: Reportedly, she has Serratia in the wound culture and she has been on IV cefepime and IV Unasyn. IV Unasyn discontinued this morning. CT scan of the right upper extremity revealed probable pocket of gas formation in and around the right side IJ dialysis catheter and also edema extending from the right chest to the right wrist and pocket of fluid in the right antecubital fossa. Her vital signs are stable, afebrile. Plan: Venous Doppler of the right upper extremity, general surgery consult to evaluate the right IJ dialysis catheter #3 ESRD on hemodialysis: Status post dialysis yesterday, stable. BUN, creatinine and potassium are stable. Nephrology on the case. #4 type 2 diabetes mellitus: Blood sugar stable, continue Tradjenta and sliding scale. #5 SLE/lupus nephritis: Continue prednisone. #6 hypertension: Blood pressure improved, continue metoprolol. Continue IV hydralazine as needed #7 chronic anemia: Hemoglobin has been around 10-12 g/dL. Admission hemoglobin is 10.7 g/dL, today's hemoglobin is 9.7 g/dL, stable at baseline. #8 DVT prophylaxis: Subcu heparin. This note was generated with [employer]GC[employer] software. It may contain incorrect words, spelling, and punctuation that were not noted in checking the note before signing. Code Visit Inpatient E&M: 71629 Subs Hosp L2
[2018-08-14] MEDS: Fluticasone 0.05% 1 SPRAY NASAL.SRY 2 SPRAY NASAL (10:19)
[2018-08-14] MEDS: DULoxetine Hcl 60 MG Capsule 120 MG PO (10:19)
[2018-08-14] MEDS: Metoprolol Tartrate 25 MG Tablet PO ×2 (10:19→21:06)
[2018-08-14] MEDS: Famotidine 20 MG Tablet 40 MG PO (10:19)
[2018-08-14] MEDS: LINAGLIPTIN 5 MG TABLET PO (10:20)
[2018-08-14] MEDS: Pregabalin 75 MG Capsule PO ×2 (10:21→21:06)
--- NOTE | 2018-08-14 10:34 | PCM.CONS.GEN ---
Problem List (1) End stage renal disease Status: Chronic (2) Extremity edema Status: Acute Reason for Consult Date of Consultation: 08/14/18 History of Present Illness: The patient is a 47 year old F brought in by family for change in mental status. Patient was brought in by family who abruptly left patient was found down and brought in. Patient underwent a workup including CT of the head and neck which were unremarkable. Patient continued to be encephalopathic. Patient unable to provide any history. Drug screen was negative in the emergency room but patient does receive a prescription for lorazepam, last prescription was filled on July 12. Patient be admitted for further stabilization and encephalopathy. Back in February I placed a right IJ tunneled dialysis catheter. She subsequently had a fistula developed in [place] in her right antecubital fossa. It is not completely healed and it is been about 3 weeks. She still has some slight drainage from the wound. The cultures are still pending. She subsequently underwent a CAT scan of her right upper extremity. Findings: There is incomplete visualization of pocket of gas formation in and around the age-indeterminate right-sided IJ in the chest recommend dedicated CT scan of the chest if possible obtaining CT scan of the chest and right upper extremity. Consider recent postoperative change and/or infection which is partially visualized on this study. An ultrasound is suggested to evaluate for deep venous thrombosis given that the edema appears to extend from the right chest to the wrist. Additionally there is a pocket of fluid in the antecubital fossa near surgical clips which may represent a focal abscess and/or evolving hematoma in the appropriate clinical setting recommend ultrasound for further evaluation. She is not complaining of any pain in her upper extremity. She is complaining of swelling in both the right and left hand but greater in the right hand and right arm area. Past Medical History Past Medical History (Chronic Problems): Chronic Problems (Last Updated 08/13/18 @ 13:59 by Lele Garcia MD) Nonrheumatic mitral (valve) insufficiency (Chronic) Secondary pulmonary arterial hypertension (Chronic) Non-rheumatic tricuspid valve insufficiency (Chronic) End stage renal disease (Chronic) Chronic anemia (Chronic) Hypertension (Chronic) Narcolepsy (Chronic) Lupus nephritis (Chronic) Status post kidney and liver biopsy (fatty liver) Degenerative disc disease, cervical (Chronic) Cervical spondylosis (Chronic) Diabetes mellitus, type II (Chronic) SLE (systemic lupus erythematosus) (Chronic) Medical History: Medical History (Last Reviewed 08/14/18 @ 10:39 by Cesar Sheth MD) Nonrheumatic mitral (valve) insufficiency (Chronic) I34.0 Secondary pulmonary arterial hypertension (Chronic) I27.21 Non-rheumatic tricuspid valve insufficiency (Chronic) I36.1 End stage renal disease (Chronic) N18.6 Chronic anemia (Chronic) D64.9 Hypertension (Chronic) I10 Narcolepsy (Chronic) G47.419 Lupus nephritis (Chronic) M32.14 Status post kidney and liver biopsy (fatty liver) Degenerative disc disease, cervical (Chronic) M50.30 Cervical spondylosis (Chronic) M47.812 Diabetes mellitus, type II (Chronic) E11.9 SLE (systemic lupus erythematosus) (Chronic) M32.9 Allergies LONG Inhibitors Allergy (Verified 08/07/18 22:06) Angioedema lisinopril Allergy (Verified 08/07/18 22:06) Angioedema Sulfa (Sulfonamide Antibiotics) Allergy (Verified 08/07/18 22:06) Rash sulfamethoxazole [From Bactrim] Allergy (Verified 08/07/18 22:06) Rash trimethoprim [From Bactrim] Allergy (Verified 08/07/18 22:06) Rash Angioderm Adverse Reaction (Unknown, Uncoded 07/27/18 11:40) Unknown Home Medications: Ambulatory Orders Medication Instructions Recorded Duloxetine Hcl [Cymbalta] 120 mg PO DAILY 10/01/16 Hydroxychloroquine [Plaquenil] 200 mg PO BIDCM 10/01/16 Linagliptin [Tradjenta] 5 mg PO DAILY 10/01/16 metoprolol tartrate 25 mg tablet 25 mg PO BID 01/11/18 Atorvastatin Calcium [Lipitor] 20 mg PO QHS 01/20/18 Baclofen [Lioresal] 10 mg PO BREAKFAST 01/20/18 famotidine 40 mg tablet 40 mg PO DAILY 05/12/18 Ferrous Sulfate 325 mg PO DAILY 08/12/18 Prednisone 5 mg PO DAILY 08/12/18 Pregabalin [Lyrica] 75 mg PO BID 08/12/18 Sevelamer Carbonate [Renvela] 4,800 mg PO TIDCM 08/12/18 Baclofen 20 mg PO DINNER 08/13/18 Calcitriol [Rocaltrol] 0.25 mcg PO 08/13/18 Dextroamphetamine Sulfate 20 mg PO DAILY 08/13/18 [Dexedrine] Dextroamphetamine/Amphetamine 15 mg PO DINNER 08/13/18 [Adderall 15 mg Tablet] Dextroamphetamine/Amphetamine 30 mg PO BREAKFAST 08/13/18 [Adderall 15 mg Tablet] Surgical History: Surgical History (Last Reviewed 08/14/18 @ 10:39 by Cesar Sheth MD) History of esophagogastroduodenoscopy (EGD) Z98.890 Presence of surgically created arteriovenous shunt for hemodialysis Onset Date: ~11/2017 Z99.2 S/P colonoscopy Z98.890 S/P lymph node biopsy Z98.890 S/P nasal polypectomy Z98.890 Status post carpal tunnel release Z98.890 Status post insertion of dialysis catheter Z95.828, Z99.2 Status post total hip replacement, bilateral Z96.643 port removed Surgical History: - Smoking Status: Unknown if ever smoked - *Family History Maternal Family History: Family History (Last Reviewed 08/12/18 @ 18:36 by Javi Sanchez DO) Mother Hypertension Kidney disease ALS (amyotrophic lateral sclerosis) Father Heart disease Hypertension Kidney disease Diabetes History Items: Diabetes, High Cholesterol, Heart Disease, Hypertension, Renal Disease, - Paternal Family History: Family History (Last Reviewed 08/12/18 @ 18:36 by Javi Sanchez DO) Mother Hypertension Kidney disease ALS (amyotrophic lateral sclerosis) Father Heart disease Hypertension Kidney disease Diabetes History Items: Diabetes, High Cholesterol, Heart Disease, Hypertension, Renal Disease Sibling Family History: Family History (Last Reviewed 08/12/18 @ 18:36 by Javi Sanchez DO) Mother Hypertension Kidney disease ALS (amyotrophic lateral sclerosis) Father Heart disease Hypertension Kidney disease Diabetes History Items: Diabetes Review of Systems Constitutional: Reports: - - Patient presented with mental status changes which she currently feels she has normal mentation. Cardiovascular: Denies: Chest Pain, Chest Pressure, Chest Tightness, Palpitations Respiratory: Denies: Cough, Hemoptysis, Shortness of breath at rest, Shortness of breath upon exertion, Wheezing Musculoskeletal: Reports: - - She is complaining of swelling within the right arm itself as well as bilateral swelling in hands. Denies: Neck Pain, Shoulder Pain Patient Problems: Active and Suspected Problems (Last Updated 08/13/18 @ 13:59 by Lele Garcia MD) Extremity edema (Acute) Encephalopathy acute (Acute) - Physical Exam General: Alert, Oriented x3 Lungs: Clear to auscultation Cardiovascular: Regular rate, Regular Rhythm, No murmurs Extremities: - - Patient has an excellent thrill and the newly created right antecubital AV fistula. There is no signs of cellulitis there is no tenderness to touch there is no crepitus going up into her arm. There is no tenderness around the tunneled dialysis catheter site. Vital Signs Temp Pulse Resp BP Pulse Ox 97.8 F 98 18 131/68 H 98 08/14/18 10:10 08/14/18 10:19 08/14/18 10:10 08/14/18 10:10 08/14/18 10:10 Oxygen Flow Rate (L/min) 2 Oxygen Delivery Method Room Air Weight: 156 lb 1.396 oz Body Mass Index (BMI) 28.7 Finger Stick Blood Glucose 155 Intake and Output for Last 24 Hours 08/12/18 08/13/18 08/14/18 23:59 23:59 23:59 Intake Total 1235 / 1235 360 / 360 Output Total 1100 / 1100 Balance 135 / 135 360 / 360 Laboratory Tests Past 24 Hrs 08/13/18 08/13/18 08/13/18 06:01 09:24 10:30 WBC RBC Hgb Hct MCV MCH MCHC RDW RDW Differential Plt Count MPV Immature Gran % (Auto) Neut % (Auto) Lymph % (Auto) [place] % (Auto) Eos % (Auto) Baso % (Auto) Absolute Neuts (auto) Absolute Lymphs (auto) Total Counted Sodium Potassium Chloride Carbon Dioxide Anion Gap BUN Creatinine Estim Creat Clear Calc Est GFR (MDRD) Af Amer Est GFR (MDRD) Non-Af BUN/Creatinine Ratio Glucose Calcium Total Bilirubin 0.50 Direct Bilirubin 0.14 AST 35 ALT < 6 L Alkaline Phosphatase 81 Total Protein 7.5 Albumin 2.9 L Globulin 4.6 H Albumin/Globulin Ratio Cortisol Salicylates < 1.7 L Ethyl Alcohol S.aureus Protein A PCR NEGATIVE MRSA (PCR) Negative 08/13/18 08/13/18 08/14/18 10:30 10:30 06:12 WBC 7.6 RBC 3.18 L Hgb 9.7 L Hct 31.7 L MCV 99.7 H MCH 30.5 MCHC 30.6 L RDW 16.6 H RDW Differential 60.0 H Plt Count 168 MPV 9.6 Immature Gran % (Auto) 0.400 Neut % (Auto) 58.9 Lymph % (Auto) 28.4 [place] % (Auto) 10.3 H Eos % (Auto) 2.0 Baso % (Auto) 0.0 Absolute Neuts (auto) 4.5 Absolute Lymphs (auto) 2.15 Total Counted Not Reportable Sodium Potassium Chloride Carbon Dioxide Anion Gap BUN Creatinine Estim Creat Clear Calc Est GFR (MDRD) Af Amer Est GFR (MDRD) Non-Af BUN/Creatinine Ratio Glucose Calcium Total Bilirubin Direct Bilirubin AST ALT Alkaline Phosphatase Total Protein Albumin Globulin Albumin/Globulin Ratio Cortisol 27.70 H Salicylates Ethyl Alcohol 3.0 S.aureus Protein A PCR MRSA (PCR) 08/14/18 06:12 WBC RBC Hgb Hct MCV MCH MCHC RDW RDW Differential Plt Count MPV Immature Gran % (Auto) Neut % (Auto) Lymph % (Auto) [place] % (Auto) Eos % (Auto) Baso % (Auto) Absolute Neuts (auto) Absolute Lymphs (auto) Total Counted Sodium 137 Potassium 4.2 Chloride 101 Carbon Dioxide 25.0 Anion Gap 11 BUN 41 H Creatinine 6.81 H Estim Creat Clear Calc 7.87 Est GFR (MDRD) Af Amer 8 L Est GFR (MDRD) Non-Af 7 L BUN/Creatinine Ratio 6.0 L Glucose 80 Calcium 8.8 Total Bilirubin 0.50 Direct Bilirubin AST 34 ALT 8 L Alkaline Phosphatase 72 Total Protein 6.8 Albumin 2.5 L Globulin 4.3 H Albumin/Globulin Ratio 0.6 L Cortisol Salicylates Ethyl Alcohol S.aureus Protein A PCR MRSA (PCR) POC Glucose 08/14/18 08/13/18 08/13/18 06:50 21:18 14:38 POC Glucose 138 H 106 144 H 08/13/18 08/13/18 08/13/18 12:05 07:02 06:06 POC Glucose 122 H 102 78 08/13/18 05:22 POC Glucose 80 Assessment/Plan All Active Problems (Last Updated 08/13/18 @ 13:59 by Lele Garcia MD) Extremity edema (Acute) Encephalopathy acute (Acute) At this point I discussed the case with the hospitalist we are going to obtain the appropriate images requested and suggested by the radiologist to read the CT scan of the upper extremity. At this point I do not think that there is any sites that we need to drain or open and we can appropriately wait until these tests are completed.
[2018-08-14] MEDS: Ferrous Sulfate 325 MG Tablet PO (12:28)
[2018-08-14 12:40] LABS: Bedside Glucose 80 mg/dL (70-110)
[2018-08-14 13:09] LABS: Phosphorus 6.1 mg/dL (2.5-4.9)
[2018-08-14] MEDS: Glycerin/Hypromellose/PEG400 15 ml Bottle EACH EYE (14:15)
[2018-08-14] MEDS: 0.9% NaCl IVPB Med Flush (250 mL) 15 ML IV (15:06)
[2018-08-14] MEDS: 0.9% NaCl Peripheral Flush Adult/Peds IV (15:07)
[2018-08-14] MEDS: SEVELAMER CARBONATE 800 MG TABLET 4800 MG PO (16:39)
[2018-08-14 16:40] LABS: Bedside Glucose 110 mg/dL (70-110)
[2018-08-14] MEDS: Atorvastatin Calcium 20 MG Tablet PO (21:05)
[2018-08-14] MEDS: Baclofen 10 MG Tablet 20 MG PO (21:06)
[2018-08-14] MEDS: Montelukast 10 MG Tablet PO (21:06)
[2018-08-14 21:11] LABS: Bedside Glucose 161 mg/dL (70-110)
[2018-08-14] MEDS: Insulin Lispro 100 UNIT/ML INSULN.PEN SC (21:12)
[2018-08-15] VITALS (9 sets, daily range): BP systolic 130–136; BP diastolic 75–81; PULSE 77–93; RESP 16–17; TEMP 36.5–37.1; O2SAT 96–100
[2018-08-15] MEDS: Acetaminophen 325 MG Tablet 650 MG PO ×2 (01:32→10:55)
[2018-08-15] MEDS: Heparin Injection (Vial) 5,000 UNIT/ML VIAL 5000 UNIT SC (05:01)
[2018-08-15] MEDS: 0.9% NaCl Peripheral Flush Adult/Peds IV ×2 (05:01→16:11)
[2018-08-15 07:05] LABS: Bedside Glucose 80 mg/dL (70-110)
[2018-08-15] MEDS: SEVELAMER CARBONATE 800 MG TABLET 4800 MG PO ×2 (08:58→13:33)
--- NOTE | 2018-08-15 09:12 | PCM.PN.SRG ---
Patient Problems: Active and Suspected Problems (Last Reviewed 08/14/18 @ 10:39 by Cesar Sheth MD) Extremity edema (Acute) Encephalopathy acute (Acute) Subjective: Patient evaluated sitting in the chair this morning. She denies pain/discomfort at the right upper extremity. Dialysis has been going well via chest catheters. - Physical Exam General: Alert, Oriented x3, Cooperative Extremities: - - Bilateral hand swelling. Right upper extremity- incision with dehiscence. Small amount of drainage noted on the gauze dressing. Vital Signs Temp Pulse Resp BP Pulse Ox 97.9 F 91 17 130/75 H 96 08/15/18 08:55 08/15/18 08:55 08/15/18 08:55 08/15/18 08:55 08/15/18 08:55 Oxygen Flow Rate (L/min) 2 Oxygen Delivery Method Room Air Weight: 156 lb 1.396 oz Body Mass Index (BMI) 28.7 Finger Stick Blood Glucose 155 Intake and Output for Last 24 Hours 08/13/18 08/14/18 08/15/18 23:59 23:59 23:59 Intake Total 1235 / 1235 800 / 800 120 / 120 Output Total 1100 / 1100 Balance 135 / 135 800 / 800 120 / 120 Microbiology Past 72 Hours 08/13/18 09:24 Gram Stain - Final Wound - Elbow Laboratory Tests Past 24 Hrs 08/14/18 06:12 Phosphorus 6.1 H POC Glucose 08/15/18 08/14/18 08/14/18 06:48 21:04 16:26 POC Glucose 80 161 H 110 08/14/18 12:24 POC Glucose 80 Medical Necessity - Tobacco Use Smoking Status: Unknown if ever smoked Assessment/Plan All Active Problems (Last Reviewed 08/14/18 @ 10:39 by Cesar Sheth MD) Extremity edema (Acute) Encephalopathy acute (Acute) I am following this patient in conjunction with Dr. Sheth Impression: wound drainage, right upper extremity fistula stage I. Bilateral upper extremity swelling Await upper extremity doppler study today We will continue to monitor this patient Code Visit Inpatient E&M: 47787 [facility] Hosp L1
--- NOTE | 2018-08-15 09:26 | PN.SURG_ITS ---
Addendum entered and electronically signed by Anabela Lewis PA-C 08/15/18 14:37: Code Visit Right upper extremity doppler was unremarkable. Agree with discharge and follow- up with her vascular surgeon in [place]. Addendum entered and electronically signed by Cesar Sheth MD 08/15/18 11:26: Code Visit As below. Awaiting test today. Original Note: Patient Problems: Active and Suspected Problems (Last Reviewed 08/14/18 @ 10:39 by Cesar Sheth MD) Extremity edema (Acute) Encephalopathy acute (Acute) Subjective: Patient evaluated sitting in the chair this morning. She denies pain/discomfort at the right upper extremity. Dialysis has been going well via chest catheters. - Physical Exam General: Alert, Oriented x3, Cooperative Extremities: - - Bilateral hand swelling. Right upper extremity- incision with dehiscence. Small amount of drainage noted on the gauze dressing. Vital Signs Temp Pulse Resp BP Pulse Ox 97.9 F 91 17 130/75 H 96 08/15/18 08:55 08/15/18 08:55 08/15/18 08:55 08/15/18 08:55 08/15/18 08:55 Oxygen Flow Rate (L/min) 2 Oxygen Delivery Method Room Air Weight: 156 lb 1.396 oz Body Mass Index (BMI) 28.7 Finger Stick Blood Glucose 155 Intake and Output for Last 24 Hours 08/13/18 08/14/18 08/15/18 23:59 23:59 23:59 Intake Total 1235 / 1235 800 / 800 120 / 120 Output Total 1100 / 1100 Balance 135 / 135 800 / 800 120 / 120 Microbiology Past 72 Hours 08/13/18 09:24 Gram Stain - Final Wound - Elbow Laboratory Tests Past 24 Hrs 08/14/18 06:12 Phosphorus 6.1 H POC Glucose 08/15/18 08/14/18 08/14/18 06:48 21:04 16:26 POC Glucose 80 161 H 110 08/14/18 12:24 POC Glucose 80 Medical Necessity - Tobacco Use Smoking Status: Unknown if ever smoked Assessment/Plan All Active Problems (Last Reviewed 08/14/18 @ 10:39 by Cesar Sheth MD) Extremity edema (Acute) Encephalopathy acute (Acute) I am following this patient in conjunction with Dr. Sheth Impression: wound drainage, right upper extremity fistula stage I. Bilateral upper extremity swelling Await upper extremity doppler study today We will continue to monitor this patient Code Visit Inpatient E&M: 05157 [facility] Hosp L1
--- NOTE | 2018-08-15 10:45 | CASEMGMT ---
DION called [facility] and spoke with Flako Gambino. Patient is part of the [facility] program so he does not have access to her services. Her worker is Neisha Kovacs [phone]. Her supervisor pipeline maintenance if I cannot reach her is Yovana Cabrera [phone]. DION then left a voice mail for Neisha requesting a return call. Keren GREER MSW
[2018-08-15] MEDS: Calcitriol 0.25 MCG Capsule 1.25 MCG PO (10:51)
[2018-08-15 11:31] LABS: Bedside Glucose 108 mg/dL (70-110)
--- NOTE | 2018-08-15 11:51 | EKG12_ITS ---
Test Reason : CP Blood Pressure : / mmHG Vent. Rate : 090 BPM Atrial Rate : 090 BPM P-R Int : 140 ms QRS Dur : 086 ms QT Int : 384 ms P-R-T Axes : 033 019 141 degrees QTc Int : 469 ms Normal sinus rhythm Nonspecific ST and T wave abnormality Abnormal ECG Confirmed by DALE GARCIA, ISABELA ([id number]), videotape editor CESAR SIMEON ([id number]) on 08/18/2018 2:13:32 PM Referred By: EDUAR Confirmed By:ISABELA HUNTER MD
--- NOTE | 2018-08-15 12:03 | NURSING ---
Dialysis nurse reports that patient is complaining of pain across her shoulders and down her left arm. VSS. [address] Ambriz was contacted by medical laboratory technical officer and updated. Dr. Burgos in unit and is updated on same too.
--- NOTE | 2018-08-15 12:32 | PCM.PN.REN ---
Patient Problems: Active and Suspected Problems (Last Reviewed 08/14/18 @ 10:39 by Cesar Sheth MD) Extremity edema (Acute) Encephalopathy acute (Acute) Subjective: seen on dialysis, mental status back to baseline. ECG done for pain across chest. Complains of neck pain. Hx chronic pain and anxiety. Taken off all narcotics, baclofen, antianxiety meds due to obtundation on admit. - Physical Exam General: Alert, Oriented x3, Cooperative, No apparent distress - anxious Lungs: Clear to auscultation Cardiovascular: Regular rate Extremities: Edema - BUE, - - faint bruit RUE AVF, wrapped Skin: - - rt arm wrapped Psych/Mental Status: Alert and oriented to time, place, person, mood and affect Vital Signs Temp Pulse Resp BP Pulse Ox 97.9 F 93 17 130/75 H 96 08/15/18 08:55 08/15/18 10:58 08/15/18 08:55 08/15/18 08:55 08/15/18 08:55 Oxygen Flow Rate (L/min) 2 Oxygen Delivery Method Room Air Weight: 70.8 kg Body Mass Index (BMI) 28.7 Finger Stick Blood Glucose 155 Intake and Output for Last 24 Hours 08/13/18 08/14/18 08/15/18 23:59 23:59 23:59 Intake Total 1235 / 1235 800 / 800 480 / 480 Output Total 1100 / 1100 Balance 135 / 135 800 / 800 480 / 480 Microbiology Past 72 Hours 08/12/18 16:00 Blood Culture - Preliminary Blood Culture (Wb) - Neck No growth in 48 hours. 08/12/18 16:00 Blood Culture - Preliminary Blood Culture (Wb) - Arm Right No growth in 48 hours. 08/13/18 09:24 Gram Stain - Final Wound - Elbow Wound Culture - Preliminary No growth-Final to follow Laboratory Tests Past 24 Hrs 08/14/18 06:12 Phosphorus 6.1 H POC Glucose 08/15/18 08/15/18 08/14/18 11:23 06:48 21:04 POC Glucose 108 80 161 H 08/14/18 08/14/18 16:26 12:24 POC Glucose 110 80 Medical Necessity - Tobacco Use Smoking Status: Unknown if ever smoked Assessment/Plan All Active Problems (Last Reviewed 08/14/18 @ 10:39 by Cesar Sheth MD) Extremity edema (Acute) Encephalopathy acute (Acute) 1. ESRD HD MWF. Seen on Dialysis today and MWF at chronic unit. RUE swelling likely due to new AVF, central stenosis. Venous US negative for DVT. 2. Encephalopathy improved off narcotics, anxiolytics 3. DM2 primary mgmt 4. HTN BP stable 5. SLE 6. ANemia hgb stable 7. Hx seizures 8. Infected access site with serratia. cefepime 1g today. 9. Hyperphosphatemia continue binders 4-6 tabs a day. Suspect noncompliant with binders with altered MS 10. Chronic pain syndrome.
--- NOTE | 2018-08-15 12:41 | DCINST_ITS ---
- Discharge Diagnoses Current Active Problems: Current Active and Chronic Problems (Last Reviewed 08/14/18 @ 10:39 by Cesar Sheth MD) (1) Acute Encephalopathy, Suspected Multifactorial, Secondary to Narcolepsy and Polypharmacy (2) RUE Recently Infected Serratia Dialysis Access Wound (Plan IV cefepime at HD per discussion w/ nephrology) (3) ESRD on HD (4) Diabetes mellitus type II (5) SLE/Lupus Nephritis (6) HTN (7) AOCD/Fe deficiency anemia You will use the following diet at home:: Calorie/Carbohydrate Controlled (specify 1200, 1400, etc) - 1800 ADA/cardiac/renal diet recommended., Cardiac, Renal (restricted protein/sodium) Your food should be the consistency of: Regular Your liquids should be the consistency of: Regular/Thin Discharge Activity: - - Advise parameters including no driving given history of narcolepsy, fall precautions, use assist devices as needed. Weight Bearing Status: Weight bearing as tolerated Keep extremity elevated above heart level: Right Arm Call your doctor if your incision/area has: Continuous Slow Oozing, Sudden Increased Bleeding, Increased Pain/ Swelling, Increased Redness, Foul Smelling Discharge, Swelling at the incision site Call your doctor if you observe: Fever of 101 or Higher, Inability to urinate, Inability to have a bowel movement, Shortness of breath, Dizziness, Fainting spells, Chest pain, Uncontrolled pain Change Dressing in (Days):: 1 Remove Dressing in (days):: 1 Cleanse incision/area with: Soap & Water Additional Dressing/Incision Instructions:: Please given region clean and dry, may wash, pat dry following, elevated above heart when seated and in bed, otherwise may place dry dressing daily and replace if needed. Instructions: Recognizing and Treating Wound Infection, ED Overdose Accidental Additional Instructions: Given your underlying disease history, we strongly advise you to avoid both narcotics and benzodiazepine medications as when taken these will lead to sedation. You will continue to have IV cefepime following dialysis for recently diagnosed serriatia right upper extremity infection which will be arranged by Dr. Arline Ambriz per discussions with her while you were inpatient. Allergies/Adverse Reactions: Allergies LONG Inhibitors Allergy (Verified 08/07/18 22:06) Angioedema lisinopril Allergy (Verified 08/07/18 22:06) Angioedema Sulfa (Sulfonamide Antibiotics) Allergy (Verified 08/07/18 22:06) Rash sulfamethoxazole [From Bactrim] Allergy (Verified 08/07/18 22:06) Rash trimethoprim [From Bactrim] Allergy (Verified 08/07/18 22:06) Rash Angioderm Adverse Reaction (Unknown, Uncoded 07/27/18 11:40) Unknown Medications to take at Discharge Duloxetine Hcl [Cymbalta] 120 mg PO DAILY 10/01/16 Hydroxychloroquine [Plaquenil] 200 mg PO BIDCM 10/01/16 Linagliptin [Tradjenta] 5 mg PO DAILY 10/01/16 metoprolol tartrate 25 mg tablet 25 mg PO BID 01/11/18 Atorvastatin Calcium [Lipitor] 20 mg PO QHS 01/20/18 Baclofen [Lioresal] 10 mg PO BREAKFAST 01/20/18 famotidine 40 mg tablet 40 mg PO DAILY 05/12/18 Ferrous Sulfate 325 mg PO DAILY 08/12/18 Prednisone 5 mg PO DAILY 08/12/18 Pregabalin [Lyrica] 75 mg PO BID 08/12/18 Sevelamer Carbonate [Renvela] 4,800 mg PO TIDCM 08/12/18 Baclofen 20 mg PO DINNER 08/13/18 Calcitriol [Rocaltrol] 0.25 mcg PO 08/13/18 Dextroamphetamine Sulfate [Dexedrine] 20 mg PO DAILY 08/13/18 Dextroamphetamine/Amphetamine [Adderall 15 mg Tablet] 15 mg PO DINNER 08/13/18 Dextroamphetamine/Amphetamine [Adderall 15 mg Tablet] 30 mg PO BREAKFAST 08/13/18 Cefepime HCl [Maxipime] 1 gm IV Q24H vial 08/15/18 Primary Care Physician: Mitchell Bowen Chi, MD [Primary Care Provider] - Please follow up with your Primary Care Physician in: Follow-up within 1-2 days following discharge. Test Results: Test results from this visit will be discussed in further detail at your follow- up appointment, if applicable. Please Follow Up With: Arline Ambriz DO When: Follow-up as arranged for HD. Please Follow Up With: Chas Vascular Surgeon When: Follow-up with your vascular surgeon within 2-3 weeks. Proposed Discharge Date: 08/15/18
--- NOTE | 2018-08-15 12:53 | DS.PCM_ITS ---
Discharge Date and Diagnosis - Problem List Patient Problems: Active and Suspected Problems (Last Reviewed 08/14/18 @ 10:39 by Cesar Sheth MD) Extremity edema (Acute) Encephalopathy acute (Acute) Date of Admission: 08/12/18 Date of Discharge: 08/15/18 - Primary Discharge Diagnosis Active and Suspected Problems (Last Reviewed 08/14/18 @ 10:39 by Cesar Sheth MD) (1) Acute Encephalopathy, Suspected Multifactorial, Secondary to Narcolepsy and Polypharmacy (2) RUE Recently Infected Serratia Dialysis Access Wound (Plan IV cefepime at HD per discussion w/ nephrology) (3) ESRD on HD (4) Diabetes mellitus type II (5) SLE/Lupus Nephritis (6) HTN (7) AOCD/Fe deficiency anemia - Secondary Discharge Diagnosis Chronic Problems (Last Reviewed 08/14/18 @ 10:39 by Cesar Sheth MD) Nonrheumatic mitral (valve) insufficiency (Chronic) Secondary pulmonary arterial hypertension (Chronic) Non-rheumatic tricuspid valve insufficiency (Chronic) End stage renal disease (Chronic) Chronic anemia (Chronic) Hypertension (Chronic) Narcolepsy (Chronic) Lupus nephritis (Chronic) Status post kidney and liver biopsy (fatty liver) Degenerative disc disease, cervical (Chronic) Cervical spondylosis (Chronic) Diabetes mellitus, type II (Chronic) SLE (systemic lupus erythematosus) (Chronic) Hospital Course and Treatment Operations: None Procedures: Dialysis, EKG Summary of Care Provided: The patient is a 47 y/o F w/ PMHx: ESRD on HD, HTN, HLD, Valvular Heartr disease, Lupus w/ nephritis, Diabetes mellitus type II, AOCD, Chronic RUE edema, non-healing incision s/p attempted AVF, Pulmonary HTN, Chronic Pain Syndrome, Anxiety who presented to the [facility] ED on 08/12/18 with history of being found, de creased responsiveness at home, brought in per her family. In the ED workup included CT of the head and neck which were unremarkable. Patient status continued to be notable for encephalopathy therefore patient was admitted. CT scan of the right upper extremity initially revealed possible pocket of gas formation in and around the right sided IJ dialysis catheter and edema extending from the right chest to the right wrist with pocket of fluid in the right antecubital fossa therefore surgery, Dr. Sheth consulted with patient recent history right upper extremity antecubital fossa with chronic incisional drainage and edema noted with recent Serratia culture per Dr. 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 Sheth consultation with agreement of continued interventions with unremarkable right upper extremity venous Doppler. Upon admission, patient medications brought in per family with notable regimen and nearly 1000 narcotic tablets in addition to notably benzodiazepine regimens. 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 During admission MRI brain obtained with no acute i nfarction or hemorrhage. Urine drug screen despite patient notable narcotic and benzodiazepine from home negative with a negative blood alcohol level. LFTs and ammonia were also obtained and this was unremarkable. Patient clinically improved and orientation normalized which is similar to prior admissions. Patient reevaluated per nephrology, dialysis performed on day of discharge and recommendation for discharge to home with plan continued cefepime IV antibiotic therapy with dialysis which was amenable per Dr. Sheth. Recommendation the patient made for reevaluation per her vascular surgeon in [place] within the next 2-[address] Sheth recommendation with continued telemetry dressing care. She discharged to home in improved stable condition with additionally recommended follow-up with primary care physician. DAY OF DISCHARGE PROGRESS NOTE: Subjective: Patient without acute event overnight per self and nursing report. Patient denies fever, chills, nausea, emesis, abdominal pain, chest pain or dyspnea. Patient orientation at baseline, discussed current status likely due to narcolepsy as well as possible accidental overdose given her intermittent usage of narcotics and benzodiazepines. Patient agreeable to discharge to home. 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 Objective: T 98.7, heart rate 87, BP 133/76, respiratory rate 17, 100% on room air. Physical Examination: General: awake, alert, oriented x 3 and cooperative, seated upright in the bedside chair, NAD. Skin: normal color, turgor, no icterus, cyanosis except notable right antecubital fossa incision, mildly mottled, serous drainage noted only, edematous to the region although improved since initial presentation and patient elevating upon evaluation, mildly tender palpation. HEENT: AT/NC, EOMI, PERRLA, MMM. Lungs: CTA bilaterally, moderate effort, mild decrease BL bases, no rales, ronchi or wheezing; Heart: Regular rate and rhythm; no gallop, rub audible. Abdomen: soft, NTTP, ND, normal BS. Extremities: no cyanosis, clubbing, see skin. Neurological: patient awake, alert, oriented x 3; cognitive function appears intact upon questioning,; pupils equally reactive to light and accomodation; cranial nerves II-XII grossly normal, moving all 4 extremities, strength improved, moderately globally decreased. Psychiatric: affect appears normal, no acute evidence of depressive or anxiety feelings. Assessment and Plan: Please see hospital summary above. Patient Problems: Active and Suspected Problems (Last Reviewed 08/14/18 @ 10:39 by Cesar Sheth MD) Extremity edema (Acute) Encephalopathy acute (Acute) - Physical Exam Vital Signs Temp Pulse Resp BP Pulse Ox 97.9 F 93 17 130/75 H 96 08/15/18 08:55 08/15/18 10:58 08/15/18 08:55 08/15/18 08:55 08/15/18 08:55 Oxygen Flow Rate (L/min) 2 Oxygen Delivery Method Room Air Weight: 156 lb 1.396 oz Body Mass Index (BMI) 28.7 Finger Stick Blood Glucose 155 Intake and Output for Last 24 Hours 08/13/18 08/14/18 08/15/18 23:59 23:59 23:59 Intake Total 1235 / 1235 800 / 800 480 / 480 Output Total 1100 / 1100 Balance 135 / 135 800 / 800 480 / 480 Microbiology Past 72 Hours 08/12/18 16:00 Blood Culture - Preliminary Blood Culture (Wb) - Neck No growth in 48 hours. 08/12/18 16:00 Blood Culture - Preliminary Blood Culture (Wb) - Arm Right No growth in 48 hours. 08/13/18 09:24 Gram Stain - Final Wound - Elbow Wound Culture - Preliminary No growth-Final to follow Laboratory Tests Past 24 Hrs 08/14/18 06:12 Phosphorus 6.1 H POC Glucose 08/15/18 08/15/18 08/14/18 11:23 06:48 21:04 POC Glucose 108 80 161 H 08/14/18 16:26 POC Glucose 110 Discharge Activity: - - Advise parameters including no driving given history of narcolepsy, fall precautions, use assist devices as needed. Weight Bearing Status: Weight bearing as tolerated Keep extremity elevated above heart level: Right Arm Call your doctor if your incision/area has: Continuous Slow Oozing, Sudden Increased Bleeding, Increased Pain/ Swelling, Increased Redness, Foul Smelling Discharge, Swelling at the incision site Call your doctor if you observe: Fever of 101 or Higher, Inability to urinate, Inability to have a bowel movement, Shortness of breath, Dizziness, Fainting spells, Chest pain, Uncontrolled pain Change Dressing in (Days):: 1 Remove Dressing in (days):: 1 Cleanse incision/area with: Soap & Water Additional Dressing/Incision Instructions:: Please given region clean and dry, may wash, pat dry following, elevated above heart when seated and in bed, otherwise may place dry dressing daily and replace if needed. Home Medications: Medications to take at Discharge Duloxetine Hcl [Cymbalta] 120 mg PO DAILY 10/01/16 Hydroxychloroquine [Plaquenil] 200 mg PO BIDCM 10/01/16 Linagliptin [Tradjenta] 5 mg PO DAILY 10/01/16 metoprolol tartrate 25 mg tablet 25 mg PO BID 01/11/18 Atorvastatin Calcium [Lipitor] 20 mg PO QHS 01/20/18 famotidine 40 mg tablet 40 mg PO DAILY 05/12/18 Ferrous Sulfate 325 mg PO DAILY 08/12/18 Prednisone 5 mg PO DAILY 08/12/18 Pregabalin [Lyrica] 75 mg PO BID 08/12/18 Sevelamer Carbonate [Renvela] 3,200 mg PO TIDCM 08/12/18 Calcitriol [Rocaltrol] 0.25 mcg PO MOWEFR 08/13/18 Dextroamphetamine Sulfate [Dexedrine] 20 mg PO DAILY 08/13/18 Dextroamphetamine/Amphetamine [Adderall 15 mg Tablet] 15 mg PO DINNER 08/13/18 Dextroamphetamine/Amphetamine [Adderall 15 mg Tablet] 30 mg PO BREAKFAST 08/13/18 B Complex W-C No.20/Folic Acid [Virt-Caps Softgel] 1 mg PO DAILY 08/15/18 Baclofen 10 mg PO TID PRN PRN 08/15/18 Cefepime HCl [Maxipime] 1 gm IV Q24H vial 08/15/18 Ergocalciferol (Vitamin D2) [Drisdol] 50,000 unit PO QMONTH 08/15/18 Renal Oral Capsule 1 mg PO DAILY 08/15/18 Primary Care Physician: Mitchell Bowen Chi, MD [Primary Care Provider] - Please follow up with your Primary Care Physician in: Follow-up within 1-2 days following discharge. Please Follow Up With: Arline Ambriz DO When: Follow-up as arranged for HD. Please Follow Up With: Chas Vascular Surgeon When: Follow-up with your vascular surgeon within 2-3 weeks. Patient Instructions: Recognizing and Treating Wound Infection, ED Overdose Accidental Disposition: Home with Home Health Minutes spent on discharge:: 35 Patient Condition:: Stable Medical Necessity - Tobacco Use Smoking Status: Unknown if ever smoked Meaningful Use Info Meaningful Use Diagnoses (Choose all that apply): None applicable Code Visit Inpatient E&M: 66900 Disch Hosp
[2018-08-15] MEDS: Multivitamins,Therapeutic Tablet 1 TABLET PO (13:22)
[2018-08-15] MEDS: Baclofen 10 MG Tablet PO (13:22)
[2018-08-15] MEDS: Hydroxychloroquine 200 MG Tablet PO (13:23)
[2018-08-15] MEDS: predniSONE 5 MG Tablet PO (13:23)
[2018-08-15] MEDS: DULoxetine Hcl 60 MG Capsule 120 MG PO (13:24)
[2018-08-15] MEDS: Metoprolol Tartrate 25 MG Tablet PO (13:25)
[2018-08-15] MEDS: Famotidine 20 MG Tablet 40 MG PO (13:26)
[2018-08-15] MEDS: LINAGLIPTIN 5 MG TABLET PO (13:26)
[2018-08-15] MEDS: Fluticasone 0.05% 1 SPRAY NASAL.SRY 2 SPRAY NASAL (13:27)
[2018-08-15] MEDS: Ferrous Sulfate 325 MG Tablet PO (13:28)
[2018-08-15] MEDS: Pregabalin 75 MG Capsule PO (13:33)
[2018-08-15] MEDS: Heparin 10,000 UNITS/10 ML Vial IV (13:40)
--- NOTE | 2018-08-15 13:49 | NURSING ---
Patient's family has brought in tote and totebag of medications over the weekend. Pharmacy has looked at all medications and found more than 54 bottles of medications and 15 bottles of narcotics. Pharmacy worked with physician and providers to obtain accurate medication list. Dr. Burgos and myself went into room to discuss with patient. Dr. Burgos explained that it is unsafe to have medications and asked if we could dispose of them for her, patient stated yes. Dr. Burgos also noted that she had narcotics and asked if we could also dispose of them and the patient replied yes. Pharmacist Ellen and myself spoke with the patient about the medications and concerns of multiple meds in same bottle as well as non pharmacy labels. patient states understanding that there were medications, states she puts all meds in the container her family brought in when she no longer is taking them. she also recognized that she had medications that did not have proper pharmacy label on them and asked that we destroy those as well. House resource officer Maral notified and will [facility] the [facility] for [facility].
--- NOTE | 2018-08-15 14:11 | CASEMGMT ---
DION spoke with patient, introduced self and role at [facility]. Patient said she is supposed to get 14 hours of aide services, but they cannot find enough aides to fill this request. She gets about 10 hours. She manages her own meds. SW asked if she feels she is doing okay with managing her meds. She said she thought she was, but everyone is telling her she is not. She sees Dr Montano at [facility] and Ross Mcdaniel is her counselor at [facility]. She sees her counselor usually monthly. She did have a Adventure Guide at [facility], but she just retired and they have not replaced her yet. Neisha is her Pedicurist through [facility], but she thinks it is going to change because she is switching to [facility]. SW asked her how she is managing with her Anxiety and Depression. She said it is at a manageable level right now. Her medical issues have been a bit stressful lately. SW asked if she has had any thoughts of harming herself or anyone and she denied this. She asked if SW could let Harmony and Diego know that she is back on for dialysis on Wed. SW told her SW will do this. DION called [facility] and notified Shanon and spoke with Stephen at [facility]. DION is still waiting on a return call from Neisha from [facility] so SW can mention patient's large collection of medications. Keren GREER MSW
--- NOTE | 2018-08-15 15:36 | PHA.DC.MC ---
Pharmacy Service has performed discharge medication reconciliation and counseling for this patient. The patient's discharge medication list was reviewed for discrepancies and discrepancies were resolved. The patient's family brought in a tote and totebag of medications the patient had at home. This pharmacist went through medications to identify all pills, as some were mixed in containers (see nursing note from Jovanna Fine for further details). This pharmacist also contacted [place] pharmacy, [facility] pharmacy, and [facility] pharmacy to get the most up-to-date prescription information; in addition to [facility] to verify narcotics patient is taking. See below for updated medication list in which the patient will be discharged on. notified MD of changes made to medication list. The patient was counseled on the following discharge medications and changes in medications for homegoing were reviewed. The Reason for Use, instructions for use, and potential side effects were reviewed for all new medications. The patient's questions regarding all of their medications were answered. The patient demonstrated some understanding but would benefit from further education and reinforcement. Home Medications Duloxetine Hcl [Cymbalta] 120 mg PO DAILY 10/01/16 Hydroxychloroquine [Plaquenil] 200 mg PO BIDCM 10/01/16 Linagliptin [Tradjenta] 5 mg PO DAILY 10/01/16 metoprolol tartrate 25 mg tablet 25 mg PO BID 01/11/18 Atorvastatin Calcium [Lipitor] 20 mg PO QHS 01/20/18 famotidine 40 mg tablet 40 mg PO DAILY 05/12/18 Ferrous Sulfate 325 mg PO DAILY 08/12/18 Prednisone 5 mg PO DAILY 08/12/18 Pregabalin [Lyrica] 75 mg PO BID 08/12/18 Sevelamer Carbonate [Renvela] 3,200 mg PO TIDCM 08/12/18 Calcitriol [Rocaltrol] 0.25 mcg PO MOWEFR 08/13/18 Dextroamphetamine Sulfate [Dexedrine] 20 mg PO DAILY 08/13/18 Dextroamphetamine/Amphetamine [Adderall 15 mg Tablet] 15 mg PO DINNER 08/13/18 Dextroamphetamine/Amphetamine [Adderall 15 mg Tablet] 30 mg PO BREAKFAST 08/13/18 B Complex W-C No.20/Folic Acid [Virt-Caps Softgel] 1 mg PO DAILY 08/15/18 Baclofen 10 mg PO TID PRN PRN 08/15/18 Cefepime HCl [Maxipime] 1 gm IV Q24H vial 08/15/18 Ergocalciferol (Vitamin D2) [Drisdol] 50,000 unit PO QMONTH 08/15/18 Renal Oral Capsule 1 mg PO DAILY 08/15/18
--- NOTE | 2018-08-18 14:56 | CASEMGMT ---
Addendum entered by Agata Oconnor 08/19/18 15:50: Pt left message with this RN CM and this RN CM placed call back to pt at this time. Pt states she is on way home from dialysis at this time. Pt states she is doing 'ok' since discharge. Pt states no questions regarding discharge instructions or medications at this time. Pt states already saw Dr. Bowen in f/u and has appt's scheduled with Dr. Ambriz and surgeon. Pt states no suggestions of [facility] at this time. Pt states no further questions/concerns/needs at this time. Mayelin ISLAS CM Original Note: RN CM Discharge F/U Phone Call LACE: 12 Strata: 4 Discharge date: 08/15/18 Call date: 08/18/18 Call time: 1459 Attempted to reach pt at this time without success, message left for pt to call this RN CM back when able. Mayelin RN CM Admission dx: Mental Status Change
--- OUTSIDE RECORDS SUMMARY | 2018-10-07 16:11 | XMS RPT_ITS | Summary of Care ---
:1970 Author Organization [facility] Address [address] [place] [address] Phone Care Team Providers Name Role Phone Best Barriga MD Unavailable Flako Jaquez MD Unavailable Whit Ross MD Unavailable Stephen Gongora MD Unavailable Ray Law DO Unavailable Paul Alonzo MD Referring 2 Tasneem Jha MD Referring 3 Unavailable Anshul Bowen MD Primary Care Provider Ray Law DO Referring 1 Pb Ojeda MD Referring 4 Reason for Visit Reason Comments Insurance Outside Forms Encounter Details Date Type Department Care Team Description 08/24/2018 Telephone [facility] - [facility] - Madhu Coates, Insurance; Outside Forms RHU,NPH RN [address] [place] [address] Allergies Active Allergy Reactions Severity Noted Date Comments Juan Inhibitors Angioedema (swelling) High 05/30/2016 Bactrim Rash Medium 07/09/2010 Lisinopril Angioedema (swelling) High 06/12/2016 Sulfa Antibiotics Swelling Medium 07/09/2010 as of this encounter Medications Prescription Sig. Disp. Refills Start End Date Status Date cetirizine (ZYRTEC) 10 5 mg.. 1 qd Active MG PO TABSIndications: Systemic lupus erythematosus SALINE NAIndications: 1 Application 2 Active Systemic lupus times daily. erythematosus atorvastatin (LIPITOR) take 1 Tab by 30 Tab 11 Active 20 MG PO mouth daily. 1 2 TABSIndications: tab qd Systemic lupus erythematosus, Fibromyalgia montelukast (SINGULAIR) take 1 Tab by 90 Tab 1 Active 10 MG PO TABS mouth daily. 2 Cevimeline HCl (EVOXAC) 1 tab tid Active 30 MG PO CAPS Cholecalciferol 35523 take 1 tablet by Active UNITS PO mouth every 7 CAPSIndications: days.. Reported Nephrotic syndrome, DM on 12/11/2016 (diabetes mellitus), type 2 fluticasone 50 MCG/ACT 1 [place] by Nasal 1 Bottle 0 Active NA SUSP route 2 times 3 daily. GLUCOSE MONITOR LANCETS Dispense True 100 Container 11 Active PRESCRIPTIONIndications Track glucose 4 : Type II or monitor lancets. unspecified type Pt to test blood diabetes mellitus glucose 5 times without mention of per day. complication, not stated as uncontrolled, Hypoglycemia associated with diabetes GLUCOSE MONITOR Dispense 1 True 1 Device 0 Active PRESCRIPTIONIndications Track Glucose 4 : Type II or monitor. Pt to unspecified type test blood sugar diabetes mellitus 5 times per day. without mention of complication, not stated as uncontrolled, Hypoglycemia associated with diabetes GLUCOSE TEST STRIPS Dispense True 100 Container 11 Active PRESCRIPTIONIndications Track Glucose 4 : Type II or Test Strips. Pt unspecified type to test blood diabetes mellitus glucose 5 times without mention of per day. complication, not stated as uncontrolled, Hypoglycemia associated with diabetes Pyridoxine HCl (B-6 PO) take by mouth.. Active Reported on 12/11/2016 baclofen 10 MG Tab 10 mg 3 times Active daily.. 5 oxybutynin 15 MG Tab SR Reported on Active 24 HR 12/11/2016 5 ketoconazole 2 % 1 Application by Active Shampoo Topical route 3 times weekly. Apply topically to wet hair 3-4 times a week duloxetine [address] take 2 capsules 60 capsule 11 Active Particles by mouth daily.. 6 sevelamer 800 MG take 1 tablet by 90 tablet 11 Active TabIndications: mouth 3 times 6 Systemic lupus daily with erythematosus meals.. ondansetron 4 MG Tab take 1 tablet by 20 tablet 0 Active mouth every 6 7 hours as needed for Nausea / Vomiting.. carveDILOL 25 MG Tab take 2 tablets by 60 tablet 1 Active mouth 2 times 7 daily.. NIFEdipine 60 MG Tab SR take 1 tablet by 30 tablet 1 Active 24 HR mouth daily.. 7 Linagliptin (TRADJENTA) take 5 mg by 30 tablet 1 Active 5 MG Tab mouth daily.. 7 furOSEmide 40 MG take 1 tablet by 180 tablet 3 Active TabIndications: mouth 2 times 7 Systemic lupus daily.. erythematosus calcitRIOL 0.25 MCG Cap take 0.25 mcg by Active mouth 2 times daily.. LORazepam 1 MG Tab Take 1 mg by Active tablet mouth 2 times daily as needed. ergocalciferol 38264 take 1.25 Units Active units Cap by mouth every 30 days.. lidocaine-prilocaine 1 Application by Active 2.5-2.5 % cream Topical route.. lidocaine 5 % Ointment 1 Application by Active Topical route.. amphetamine-dextroamphe take 20 mg by Active tamine 10 MG Tab mouth daily.. acyclovir 200 MG Cap take 400 mg by Active mouth 3 times daily.. White apply to eye.. Active Petrolatum-Mineral Oil (LUBRICANT EYE NIGHTTIME OP) COLLAGEN PO by Other route.. Active amphetamine-dextroamphe take 15 mg by Active tamine 10 MG Tab mouth 2 times daily.. Acetaminophen (TYLENOL take by mouth as Active PO) needed.. Insulin Pen Needle Patient using up 200 Each Active (ULTICARE MICRO PEN to 5 per day. 7 NEEDLES) 32G X 4 MM E11.65 Misc insulin glargine 100 1 Units by Active UNIT/ML vial Subcutaneous route at bedtime.. calcium acetate 667 MG take 667 mg by Active Cap mouth 3 times daily with meals.. dextroamphetamine Take 20 mg by Active (DEXEDRINE) 10 MG Cap mouth daily. SR 24HR insulin lispro 100 by Subcutaneous Active UNIT/ML vial route as needed.. metoprolol 50 MG tab Take 25 mg by Active regular release mouth daily. omeprazole [address] take 40 mg by Active mouth daily.. diphenhydrAMINE 25 MG take 25 mg by Active Tab mouth every 6 hours as needed.. loperamide 2 MG Cap take 2 mg by Active mouth as needed for Diarrhea.. 2 stat then 1 cap after each loose stool insulin glargine 10 Units by 15 mL 11 Active (LANTUS SOLOSTAR) 100 Subcutaneous 7 UNIT/ML Solution route at Pen-injector bedtime.. HUMALOG KWIKPEN 100 INJECT 3 UNITS 15 mL Active UNIT/ML Solution WITH CORRECTION 7 Pen-injector AT MEALS - UP TO 50 UNITS PER DAY oxyCODONE 15 MG Tab take 1 tablet by 20 tablet 0 Active mouth 2 times 7 daily as needed.. Calcium Carbonate take by mouth as Active Antacid (TUMS CHEWY needed.. BITES) 750 MG Chew Tab ammonium lactate Apply 1 Active (AMLACTIN) 12 % Lotion Application lotion topically 2 times daily. rub in to affected area well B Rfohhvl-T-Rdkrg Acid Take by mouth Active (RENAL-OSMAN) 0.8 MG daily. TabIndications: Stage IV lupus nephritis (WHO), Chronic lupus nephritis, Nephrotic range proteinuria paroxetine 10 MG Tab Take 10 mg by Active tabletIndications: mouth daily. Stage IV lupus nephritis (WHO) Elastic Bandages & 1 Device by 1 Each 0 Active Supports (JUAN ELASTIC Unknown route 8 BANDAGE 4) daily as needed. MiscIndications: 1 juan elastic Systemic lupus wrap for erythematosus, compression of unspecified SLE type, left forearm unspecified organ involvement status, Stage IV lupus nephritis (WHO) hydrocortisone 0.2 % Apply 1 2 Tube 3 Active Cream creamIndications: Application 8 Systemic lupus topically 2 times erythematosus, daily. unspecified SLE type, unspecified organ involvement status, Stage IV lupus nephritis (WHO) clindamycin-benzoyl Active peroxide 1-5 % 8 GelIndications: Type 2 diabetes mellitus with diabetic polyneuropathy, with long-term current use of insulin, Systemic lupus erythematosus with glomerular disease, unspecified SLE type, End-stage kidney disease clindamycin-benzoyl Apply topically. Active peroxide 1-5 % GelIndications: Type 2 diabetes mellitus with diabetic polyneuropathy, with long-term current use of insulin, Systemic lupus erythematosus with glomerular disease, unspecified SLE type, End-stage kidney disease cyclosporin 0.05 % 1 drop 2 times Active Emulsion ophthalmic daily. suspensionIndications: Type 2 diabetes mellitus with diabetic polyneuropathy, with long-term current use of insulin, Systemic lupus erythematosus with glomerular disease, unspecified SLE type, End-stage kidney disease Soft Lens Products by Unknown route. Active (SALINE SENSITIVE EYES) SolutionIndications: Type 2 diabetes mellitus with diabetic polyneuropathy, with long-term current use of insulin, Systemic lupus erythematosus with glomerular disease, unspecified SLE type, End-stage kidney disease clobetasol 0.05 % Apply 1 3 Tube 11 Active CreamIndications: Type Application 8 2 diabetes mellitus topically 2 times with diabetic daily. 45 gm polyneuropathy, with tube long-term current use of insulin, Systemic lupus erythematosus with glomerular disease, unspecified SLE type, End-stage kidney disease predniSONE 5 MG Tab Take 1 tablet by 30 tablet 11 Active tabletIndications: Type mouth daily. 8 2 diabetes mellitus with diabetic polyneuropathy, with long-term current use of insulin, Systemic lupus erythematosus with glomerular disease, unspecified SLE type, End-stage kidney disease pregabalin 75 MG Cap Take 1 capsule by 60 capsule 5 06/17/20 Active capsuleIndications: mouth 2 times 8 19 Type 2 diabetes daily. 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, Stage IV lupus nephritis (WHO) as of this encounter Active Problems Problem Noted Date Demand ischemia 09/17/2016 SIRS (systemic inflammatory response syndrome) 09/16/2016 Anemia 08/27/2016 Nausea and vomiting 08/27/2016 Attention deficit disorder 07/13/2016 Nephrotic range proteinuria 06/01/2016 Acute respiratory failure 06/01/2016 Angioedema 05/29/2016 HSV-1 (herpes simplex virus 1) infection 01/19/2016 NANCY (acute kidney injury) 01/16/2016 Febrile neutropenia 01/16/2016 Recurrent oral ulcers 01/16/2016 Immunosuppressed due to chemotherapy 01/16/2016 Chronic lupus nephritis 01/16/2016 Neutropenic fever 01/14/2016 Vitamin D deficiency 04/03/2015 Low back pain 01/10/2014 Acne vulgaris 12/18/2013 Overview: Formatting of this note may be different from the original. 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 Chronic adrenal insufficiency 10/07/2010 Postmenopausal bleeding 09/18/2010 Systemic lupus erythematosus 07/09/2010 Fibromyalgia 07/09/2010 Essential hypertension 07/09/2010 Drug-induced osteoporosis 12/03/2009 Resolved Problems Problem Noted Date Resolved Date Altered mental status 06/12/2016 12/17/2016 Dehydration 01/10/2014 04/03/2015 Overview: Secondary to diarrhea Carpal tunnel syndrome, right 07/12/2013 04/03/2015 Diabetes 07/09/2010 08/25/2012 Immunizations Name Dates Previously Given Next Due influenza, injectable, quadrivalent 06/15/2016 as of this encounter Social History Tobacco Use Types Packs/Day Years Used Date Never Smoker Smokeless Tobacco: Never Used Alcohol Use Drinks/Week oz/Week Comments No 0 Standard drinks or equivalent 0.0 Sex Assigned at Date Recorded Not on file as of this encounter Functional Status Functional Status Response Date of Assessment Are you deaf or do you have serious difficulty hearing? No 09/16/2016 Are you blind or do you have serious difficulty seeing, No 09/16/2016 even when wearing glasses? Do you have serious difficulty walking or climbing stairs Yes 09/16/2016 (5 years or older)? Do you have difficulty dressing or bathing (5 yrs or No 09/16/2016 older)? Because of a physical, mental, or emotional condition, do No 09/16/2016 you have difficulty doing errands alone such as visiting a doctor's office or shopping (5 yrs or older)? Cognitive Status Response Date of Assessment Because of a physical, mental, or emotional condition, do No 09/16/2016 you have serious difficulty concentrating, remembering, or making decisions (5 yrs or older)? as of this encounter Plan of Treatment Upcoming Encounters Date Type Specialty Care Team Description 09/23/2018 Office Visit Rheumatology Paul Salgado MD [address] [place] [id number] 09/23/2018 Office Visit Multispecialty Pb Ojeda MD [address] [place] [id number] Health Maintenance Due Date Last Done Comments DIABETIC FOOT EXAM 1972 DIABETIC EYE EXAM 1990 TETANUS 1990 TDAP (ADULT) 1991 PAP SMEAR DISCUSSION 12/14/2006 12/14/2005 MAMMOGRAM SCREENING DISCUSSION 2012 LIPIDS 11/15/2013 11/15/2012, 06/28/2008, 05/04/2007, Additional history exists HBA1C TEST 01/30/2018 08/02/2017, 03/18/2017, 09/17/2016, Additional history exists POTASSIUM 03/18/2018 03/18/2017, 03/18/2017, 02/05/2017, Additional history exists URINE MICROALBUMIN TEST 03/18/2018 03/18/2017, 07/10/2016, 05/30/2016, Additional history exists INFLUENZA VACCINE (#1) 2018 06/15/2016, 06/15/2016, 07/17/2015, Additional history exists HIV SCREENING DISCUSSION Completed 03/18/2017, 01/14/2016 as of this encounter Implants Implanted Type Area Air Intercept Controller Device Expiration Model / Identifier Date Serial / Lot Bilateral Hip Hip Joint Bilatera Replacements l: Hip as of this encounter
--- OUTSIDE RECORDS SUMMARY | 2018-10-07 16:15 | XMS RPT_ITS ---
:1970 Author Organization OHIP Support Name Relationship Address Phone D Unavailable Unavailable Unavailable SANDRA AMBRIZ Unavailable Unavailable + YONJACKIE CHI Unavailable Unavailable + D Unavailable Unavailable Unavailable PBIESHAE Unavailable Unavailable + [place] [address] YONKELLO, CHI Unavailable Unavailable + [place] [address] D Unavailable Unavailable Unavailable IESHA AMBRIZE Unavailable Unavailable + [place] [address] YONKELLO, CHI Unavailable Unavailable + [place] [address] D Unavailable Unavailable Unavailable SANDRA AMBRIZ Unavailable Unavailable + [place] [address] YONKELLO, CHI Unavailable Unavailable + [place] [address] D Unavailable Unavailable Unavailable SANDRA AMBRIZ Unavailable Unavailable + [place] [address] YONKELLO, CHI Unavailable Unavailable + [place] [address] D Unavailable Unavailable Unavailable IESHA AMBRIZE Unavailable Unavailable + [place] [address] YONKELLO, CHI Unavailable Unavailable + [place] [address] D Unavailable Unavailable Unavailable PBIESHAE Unavailable Unavailable + [place] [address] YONKELLO, CHI Unavailable Unavailable + [place] [address] D Unavailable Unavailable Unavailable IESHA AMBRIZE Unavailable Unavailable + [place] [address] YONKELLO, CHI Unavailable Unavailable + [place] [address] D Unavailable Unavailable Unavailable PB, SANDRA Unavailable . + [place] [address] YONKELLO, CHI Unavailable Unavailable + [place] [address] D Unavailable Unavailable Unavailable PB, SANDRA Unavailable . + [place] [address] YONKELLO, CHI Unavailable Unavailable + [place] [address] D Unavailable Unavailable Unavailable PB, SANDRA Unavailable . + [place] [address] YONKELLO, CHI Unavailable . + [place] [address] Pb, Sandra Unavailable Unavailable + Yanleialo, Ross Unavailable Unavailable + Pb, Sandra Unavailable Unavailable + Yanleialo, Ross Unavailable Unavailable + D Unavailable Unavailable Unavailable PB, SANDRA Unavailable Unavailable + [place] [address] YONKELLO, CHI Unavailable Unavailable + [place] [address] PAINTER, PAVITHRA Unavailable Unavailable Unavailable PB, SANDRA Unavailable Unavailable + [facility] Unavailable Unavailable Unavailable PAINTER, PAVITHRA Unavailable Unavailable Unavailable PB, SANDRA Unavailable Unavailable + [facility] ROSS Unavailable Unavailable Unavailable PAINTER, PAVITHRA Unavailable Unavailable Unavailable PB, SANDRA Unavailable Unavailable + [facility] ROSS Unavailable Unavailable Unavailable D Unavailable Unavailable Unavailable PB, SANDRA Unavailable . + [place] [address] YONKELLO, CHI Unavailable . + [place] [address] D Unavailable Unavailable Unavailable PB, SANDRA Unavailable . + [place] [address] YONKELLO, CHI Unavailable . + [place] [address] D Unavailable Unavailable Unavailable PB, SANDRA Unavailable Unavailable + [place] [address] YONKELLO, CHI Unavailable Unavailable + [place] [address] D Unavailable Unavailable Unavailable PB, SANDRA Unavailable Unavailable + [place] [address] YONKELLO, CHI Unavailable Unavailable + [place] [address] D Unavailable Unavailable Unavailable PB, SANDRA Unavailable Unavailable + [place] [address] YONKELLO, CHI Unavailable Unavailable + [place] [address] Pb, Sandra Unavailable Unavailable + Yankello, Ross Unavailable Unavailable + D Unavailable Unavailable Unavailable PB, SANDRA Unavailable Unavailable + [place] [address] YONKELLO, CHI Unavailable Unavailable + [place] [address] D Unavailable Unavailable Unavailable PB, SANDRA Unavailable Unavailable + [place] [address] YONKELLO, CHI Unavailable Unavailable + [place] [address] D Unavailable Unavailable Unavailable PB, SANDRA Unavailable Unavailable + [place] [address] YONKELLO, CHI Unavailable Unavailable + [place] [address] D Unavailable Unavailable Unavailable PB, SANDRA Unavailable . + [place] [address] YONKELLO, CHI Unavailable . + [place] [address] Pb, Sandra Unavailable Unavailable + Yankello, Ross Unavailable Unavailable + Pb, Sandra Unavailable Unavailable + Yankello, Ross Unavailable Unavailable + Pb, Sandra Unavailable Unavailable + Yankello, Ross Unavailable Unavailable + D Unavailable Unavailable Unavailable PB, SANDRA Unavailable . + [place] [address] YONKELLO, CHI Unavailable [address] [facility] + [place] [address] D Unavailable Unavailable Unavailable SANDRA AMBRIZ Unavailable [address] + [place] [address] YONKELLO, CHI Unavailable [address] + [place] [address] D Unavailable Unavailable Unavailable SANDRA AMBRIZ Unavailable [address] + [place] [address] YONKELLO, CHI Unavailable [address] + [place] [address] D Unavailable Unavailable Unavailable SANDRA AMBRIZ Unavailable [address] + [place] [address] YONKELLO, CHI Unavailable [address] + [place] [address] D Unavailable Unavailable Unavailable SANDRA AMBRIZ Unavailable [address] + [place] [address] YONKELLO, CHI Unavailable [address] + [place] [address] D Unavailable Unavailable Unavailable SANDRA AMBRIZ Unavailable [address] + [place] [address] YONKELLO, CHI Unavailable [address] + [place] [address] D Unavailable Unavailable Unavailable SANDRA AMBRIZ Unavailable [address] + [place] [address] YONKELLO, CHI Unavailable [address] + [place] [address] D Unavailable Unavailable Unavailable SANDRA AMBRIZ Unavailable [address] + [place] [address] YONKELLO, CHI Unavailable [address] + [place] [address] D Unavailable Unavailable Unavailable SANDRA AMBRIZ Unavailable [address] + [place] [address] YONKELLO, CHI Unavailable [address] + [place] [address] D Unavailable Unavailable Unavailable SANDRA AMBRIZ Unavailable [address] + [place] [address] YONKELLO, CHI Unavailable [address] + [place] [address] D Unavailable Unavailable Unavailable PB, SANDRA Unavailable [address] + [place] [address] YONKELLO, CHI Unavailable [address] + [place] [address] D Unavailable Unavailable Unavailable IESHA AMBRIZE Unavailable [address] + [place] [address] YONKELLO, CHI Unavailable [address] + [place] [address] D Unavailable Unavailable Unavailable IESHA AMBRIZE Unavailable [address] + [place] [address] YONKELLO, CHI Unavailable [address] + [place] [address] PAVITHRA PAINTER Unavailable Unavailable Unavailable IESHA AMBRIZE Unavailable Unavailable + LUIS E SORENSONI Unavailable Unavailable Unavailable PAVITHRA PAINTER Unavailable Unavailable Unavailable IESHA AMBRIZE Unavailable Unavailable + DELTA ROSS Unavailable Unavailable Unavailable D Unavailable Unavailable Unavailable SANDRA AMBRIZ Unavailable [address] + [place] [address] YONKELLO, CHI Unavailable [address] + [place] [address] D Unavailable Unavailable Unavailable SANDRA AMBRIZ Unavailable [address] + [place] [address] YONKELLO, CHI Unavailable [address] + [place] [address] D Unavailable Unavailable Unavailable PB SANDRA Unavailable [address] + [place] [address] YONKELLO, CHI Unavailable [address] + [place] [address] D Unavailable Unavailable Unavailable IESHA AMBRIZE Unavailable . + [place] [address] YONKELLO, CHI Unavailable . + [place] [address] D Unavailable Unavailable Unavailable IESHA AMBRIZE Unavailable . + [place] [address] YONKELLO, CHI Unavailable . + [place] [address] D Unavailable Unavailable Unavailable SANDRA AMBRIZ Unavailable . + [place] [address] YONKELLO, CHI Unavailable . + [place] [address] D Unavailable Unavailable Unavailable PB, SANDRA Unavailable Unavailable + YONKELLO, CHI Unavailable Unavailable + D Unavailable Unavailable Unavailable PB, SANDRA Unavailable Unavailable + YONKELLO, CHI Unavailable Unavailable + D Unavailable Unavailable Unavailable PB, SANDRA Unavailable Unavailable + YONKELLO, CHI Unavailable Unavailable + D Unavailable Unavailable Unavailable PB, SANDRA Unavailable . + ., [place] . YONKELLO, CHI Unavailable . + ., [place] . D Unavailable Unavailable Unavailable PB, SANDRA Unavailable Unavailable + YONKELLO, CHI Unavailable Unavailable + D Unavailable Unavailable Unavailable PB, SANDRA Unavailable Unavailable + YONKELLO, CHI Unavailable Unavailable + D Unavailable Unavailable Unavailable PB, SANDRA Unavailable Unavailable + [place] [address] YONKELLO, CHI Unavailable Unavailable + [place] [address] D Unavailable Unavailable Unavailable PB, SANDRA Unavailable Unavailable + YONKELLO, CHI Unavailable Unavailable + D Unavailable Unavailable Unavailable PB, SANDRA Unavailable Unavailable + YONKELLO, CHI Unavailable Unavailable + D Unavailable Unavailable Unavailable PB, SANDRA Unavailable 1 + [place] [address] YONKELLO, CHI Unavailable 1 + [place] [address] D Unavailable Unavailable Unavailable PB, SANDRA Unavailable 1 + [place] [address] YONKELLO, CHI Unavailable 1 + [place] [address] D Unavailable Unavailable Unavailable PB, SANDRA Unavailable 1 + [place] [address] YONKELLO, CHI Unavailable 1 + [place] [address] D Unavailable Unavailable Unavailable PB, SANDRA Unavailable 1 + [place] [address] YONKELLO, CHI Unavailable 1 + [place] [address] D Unavailable Unavailable Unavailable PB, SANDRA Unavailable . + [place] [address] YONKELLO, CHI Unavailable . + [place] [address] D Unavailable Unavailable Unavailable PB, SANDRA Unavailable . + [place] [address] YONKELLO, CHI Unavailable . + [place] [address] D Unavailable Unavailable Unavailable PB, SANDRA Unavailable . + [place] [address] YONKELLO, CHI Unavailable . + [place] [address] D Unavailable Unavailable Unavailable PB, SANDRA Unavailable . + [place] [address] YONKELLO, CHI Unavailable . + [place] [address] D Unavailable Unavailable Unavailable PB, SANDRA Unavailable . + [place] [address] YONKELLO, CHI Unavailable . + [place] [address] D Unavailable Unavailable Unavailable PB, SANDRA Unavailable . + [place] [address] YONKELLO, CHI Unavailable . + [place] [address] D Unavailable Unavailable Unavailable PB, SANDRA Unavailable . + [place] [address] YONKELLO, CHI Unavailable . + [place] [address] D Unavailable Unavailable Unavailable PB, SANDRA Unavailable . + [place] [address] YONKELLO, CHI Unavailable . + [place] [address] D Unavailable Unavailable Unavailable PB, SANDRA Unavailable . + [place] [address] YONKELLO, CHI Unavailable . + [place] [address] MADINA PAVITHRA Unavailable Unavailable Unavailable PB, SANDRA Unavailable Unavailable + LUIS E SORENSONI Unavailable Unavailable Unavailable PAINTER PAVITHRA Unavailable Unavailable Unavailable PB, SANDRA Unavailable Unavailable + YANLEIALO ROSS Unavailable Unavailable Unavailable D Unavailable Unavailable Unavailable PB, SANDRA Unavailable . + [place] [address] YONKELLO, CHI Unavailable . + [place] [address] D Unavailable Unavailable Unavailable PB, SANDRA Unavailable Unavailable + [place] [address] YONKELLO, CHI Unavailable . + [place] [address] D Unavailable Unavailable Unavailable PB, SANDRA Unavailable Unavailable + [place] [address] YONKELLO, CHI Unavailable . + [place] [address] D Unavailable Unavailable Unavailable PB, SANDRA Unavailable . + [place] [address] YONKELLO, CHI Unavailable . + [place] [address] D Unavailable Unavailable Unavailable PB, SANDRA Unavailable Unavailable + [place] [address] YONKELLO, CHI Unavailable . + [place] [address] D Unavailable Unavailable Unavailable PB, SANDRA Unavailable Unavailable + [place] [address] YONKELLO, CHI Unavailable . + [place] [address] D Unavailable Unavailable Unavailable PB, SANDRA Unavailable Unavailable + [place] [address] YONKELLO, CHI Unavailable . + [place] [address] D Unavailable Unavailable Unavailable PB, SANDRA Unavailable Unavailable + [place] [address] YONKELLO, CHI Unavailable . + [place] [address] D Unavailable Unavailable Unavailable BP, SADNRA Unavailable Unavailable + [place] [address] YONKELLO, CHI Unavailable . + [place] [address] D Unavailable Unavailable Unavailable PB, SANDRA Unavailable Unavailable + [place] [address] YONKELLO, CHI Unavailable . + [place] [address] D Unavailable Unavailable Unavailable PB, SANDRA Unavailable Unavailable + [place] [address] YONKELLO, CHI Unavailable . + [place] [address] D Unavailable Unavailable Unavailable PB, SANDRA Unavailable Unavailable + [place] [address] YONKELLO, CHI Unavailable . + [place] [address] D Unavailable Unavailable Unavailable PB, SANDRA Unavailable Unavailable + [place] [address] YONKELLO, CHI Unavailable . + [place] [address] D Unavailable Unavailable Unavailable PB, SANDRA Unavailable Unavailable + [place] [address] YONKELLO, CHI Unavailable . + [place] [address] D Unavailable Unavailable Unavailable PB, SANDRA Unavailable Unavailable + [place] [address] YONKELLO, CHI Unavailable . + [place] [address] D Unavailable Unavailable Unavailable PB, SANDRA Unavailable Unavailable + [place] [address] YONKELLO, CHI Unavailable . + [place] [address] D Unavailable Unavailable Unavailable PB, SANDRA Unavailable Unavailable + [place] [address] YONKELLO, CHI Unavailable . + [place] [address] D Unavailable Unavailable Unavailable PB, SANDRA Unavailable Unavailable + [place] [address] YONKELLO, CHI Unavailable . + [place] [address] D Unavailable Unavailable Unavailable PB, SANDRA Unavailable Unavailable + [place] [address] YONKELLO, CHI Unavailable . + [place] [address] D Unavailable Unavailable Unavailable PB, SANDRA Unavailable Unavailable + [place] [address] YONKELLO, CHI Unavailable . + [place] [address] D Unavailable Unavailable Unavailable PB, SANDRA Unavailable . + [place] [address] YONKELLO, CHI Unavailable . + [place] [address] D Unavailable Unavailable Unavailable PB, SANDRA Unavailable . + [place] [address] YONKELLO, CHI Unavailable . + [place] [address] D Unavailable Unavailable Unavailable PB, SANDRA Unavailable . + [place] [address] YONKELLO, CHI Unavailable . + [place] [address] Care Team Providers Name Role Phone Garcia Marte Attending Unavailable Vu, Mitchell Chi Primary Care Unavailable Vu, Mitchell Chi Referring Unavailable Vu, Mitchell Chi Attending Unavailable Vu, Mitchell Chi Primary Care Unavailable Vu, Mitchell Chi Primary Care Unavailable Referred, Self Attending Unavailable Lenora, Molly Attending Unavailable Vu, Mitchell Chi Primary Care Unavailable Desirae Minaya Attending Unavailable Vu, Mitcehll Chi Primary Care Unavailable Irina Cooley Attending Unavailable Irina Cooley Referring Unavailable Vu, Mitchell Chi Primary Care Unavailable Diogo Gaviria Attending Unavailable Diogo Gaviria Referring Unavailable Vu, Mitchell Chi Primary Care Unavailable Vu, Mitchell Chi Primary Care Unavailable Wesly Sorensen Admitting Unavailable Drew Goode D.O. Consulting Unavailable José Miguel Fierro Attending Unavailable Arline Ambriz Consulting Unavailable Wesly Sorensen Admitting Unavailable Wesly Sorensen Attending Unavailable Vu, Mitchell Chi Primary Care Unavailable Drew Goode D.O. Consulting Unavailable Arline Ambriz Consulting Unavailable Wesly Sorensen Consulting Unavailable Edu, Wesly Admitting Unavailable Drew Goode D.O. Attending Unavailable Vu, Mitchell Chi Primary Care Unavailable Drew Goode D.O. Consulting Unavailable Pb, Arline Consulting Unavailable Tereletsky, Wesly Consulting Unavailable Desirae Minaya Attending Unavailable Vu, Mitchell Chi Referring Unavailable Tereletsky, Wesly Admitting Unavailable Drew Goode D.O. Attending Unavailable Vu, Mitchell Chi Primary Care Unavailable Drew Goode D.O. Consulting Unavailable Pb, Arline Consulting Unavailable Vadim, José Miguel Consulting Unavailable Tereletsky, Wesly Admitting Unavailable Vadim, José Miguel Attending Unavailable Vu, Mitchell Chi Primary Care Unavailable Drew Goode D.O. Consulting Unavailable Pb, Arline Consulting Unavailable Vadim, José Miguel Consulting Unavailable Tereletsky, Wesly Admitting Unavailable Vadim, José Miguel Attending Unavailable Vu, Mitchell Chi Primary Care Unavailable Drew Goode D.O. Consulting Unavailable Pb, Arline Consulting Unavailable Vadim, José Miguel Consulting Unavailable Tereletsky, Wesly Admitting Unavailable Drew Goode D.O. Attending Unavailable Vu, Mitchell Chi Primary Care Unavailable Drew Goode D.O. Consulting Unavailable Pb, Arline Consulting Unavailable Vadim, José Miguel Consulting Unavailable Tereletsky, Wesly Admitting Unavailable Vadim, José Miguel Attending Unavailable Vu, Mitchell Chi Primary Care Unavailable Drew Goode D.O. Consulting Unavailable Pb, Arline Consulting Unavailable Vadim, José Miguel Consulting Unavailable Tereletsky, Wesly Admitting Unavailable Drew Goode D.O. Attending Unavailable Vu, Mitchell Chi Primary Care Unavailable Drew Goode D.O. Consulting Unavailable Pb, Arline Consulting Unavailable Vadim, José Miguel Consulting Unavailable Tereletsky, Wesly Admitting Unavailable Drew Goode D.O. Attending Unavailable Vu, Mitchell Chi Primary Care Unavailable Drew Goode D.O. Consulting Unavailable Pb, Arline Consulting Unavailable Vadim, José Miguel Consulting Unavailable Tereletsky, Wesly Admitting Unavailable Vadim, José Miguel Attending Unavailable Vu, Mitchell Chi Primary Care Unavailable Drew Goode D.O. Consulting Unavailable Pb, Arline Consulting Unavailable Vadim, José Miguel Consulting Unavailable Tereletsky, Wesly Admitting Unavailable Drew Goode D.O. Attending Unavailable Vu, Mitchell Chi Primary Care Unavailable Drew Goode D.O. Consulting Unavailable Pb, Arline Consulting Unavailable Vadim, José Miguel Consulting Unavailable Tereletsky, Wesly Admitting Unavailable Vadim, José Miguel Attending Unavailable Vu, Mitchell Chi Primary Care Unavailable Drew Goode D.O. Consulting Unavailable Pb, Arline Consulting Unavailable Vadim, José Miguel Consulting Unavailable Tereletsky, Wesly Admitting Unavailable Drew Goode D.O. Attending Unavailable Vu, Mitchell Chi Primary Care Unavailable Drew Goode D.O. Consulting Unavailable Pb, Arline Consulting Unavailable Vadim, José Miguel Consulting Unavailable Tereletsky, Wesly Admitting Unavailable Vadim, José Miguel Attending Unavailable Vu, Mitchell Chi Primary Care Unavailable Drew Goode D.O. Consulting Unavailable Pb, Arline Consulting Unavailable Vadim, José Miguel Consulting Unavailable Vu, Mitchell Chi Attending Unavailable Vu, Mitchell Chi Primary Care Unavailable Pb, Arline Attending Unavailable MAURI HERRING Attending Unavailable Vu, Mitchell Chi Primary Care Unavailable Vu, Mitchell Chi Attending Unavailable Vu, Mitchell Chi Primary Care Unavailable Rose Chandler Attending Unavailable Anabela Lewis PA-C Attending Unavailable Vu, Mitchell Chi Referring Unavailable Vu, Mitchell Chi Primary Care Unavailable Cebul Rigo Attending Unavailable Cebul Rigo Referring Unavailable Vu, Mitchell Chi Primary Care Unavailable Cebujefry Rigo Attending Unavailable Vu, Mitchell Chi Primary Care Unavailable Cebul Rigo Attending Unavailable Cebul, Rigo Referring Unavailable Vu, Mitchell Chi Primary Care Unavailable Cebul Rigo Consulting Unavailable Anabela Lewis PA-C Attending Unavailable Vu, Mitchell Chi Referring Unavailable Vu, Mitchell Chi Primary Care Unavailable Cebul Rigo Attending Unavailable Vu, Mitchell Chi Referring Unavailable Vu, Mitchell Chi Primary Care Unavailable Vu, Mitchell Chi Attending Unavailable Vu, Mitchell Chi Primary Care Unavailable Anabela Lewis PA-C Attending Unavailable Vu, Mitchell Chi Referring Unavailable Vu, Mitchell Chi Primary Care Unavailable Anabela Lewis PA-C Attending Unavailable Vu, Mitchell Chi Referring Unavailable Vu, Mitchell Chi Primary Care Unavailable Cesar Roberts Attending Unavailable Vu, Mitchell Chi Referring Unavailable Vu, Mitchell Chi Primary Care Unavailable Drew Goode D.O. Attending Unavailable Vu, Mitchell Chi Referring Unavailable Cesar Roberts Attending Unavailable Cesar Roberts Referring Unavailable Vu, Mitchell Chi Primary Care Unavailable Garcia Marte Attending Unavailable Vu, Mitchell Chi Referring Unavailable Vu, Mitchell Chi Primary Care Unavailable Garcia Marte Consulting Unavailable Anabela Lewis PA-C Attending Unavailable Anabela Lewis PA-C Referring Unavailable Vu, Mitchell Chi Primary Care Unavailable Cesar Sheth Attending Unavailable Cesar Sheth Referring Unavailable Vu, Mitchell Chi Primary Care Unavailable Anabela Lewis PA-C Attending Unavailable Vu, Mitchell Chi Referring Unavailable Vu, Mitchell Chi Primary Care Unavailable Cesar Sheth Attending Unavailable Rigo Valverde Attending Unavailable Anabela Lewis PA-C Attending Unavailable Vu, Mitchell Chi Referring Unavailable Vu, Mitchell Chi Primary Care Unavailable DossiNancy arriaga D.C. Attending Unavailable Vu, Mitchell Chi Referring Unavailable Vu, Mitchell Chi Primary Care Unavailable DossiNancy arriaga D.C. Attending Unavailable DossieNancy D.C. Referring Unavailable Vu, Mitchell Chi Primary Care Unavailable Cesar Roberts Attending Unavailable Cesar Roberts Referring Unavailable Vu, Mitchell Chi Primary Care Unavailable Cesar Roberts Attending Unavailable DossieNancy D.C. Attending Unavailable Vu, Mitchell Chi Referring Unavailable Vu, Mitchell Chi Primary Care Unavailable DossieaNncy D.C. Attending Unavailable Vu, Mitchell Chi Referring Unavailable Vu, Mitchell Chi Primary Care Unavailable Rigo Valverde Attending Unavailable RitikabulRigo Referring Unavailable Vu, Mitchell Chi Primary Care Unavailable DossieNancy D.C. Attending Unavailable Vu, Mitchell Chi Referring Unavailable Vu, Mitchell Chi Primary Care Unavailable Vu, Mitchell Chi Attending Unavailable Vu, Mitchell Chi Referring Unavailable Vu, Mitchell Chi Primary Care Unavailable DossieNancy D.C. Attending Unavailable Vu, Mitchell Chi Referring Unavailable Vu, Mitchell Chi Primary Care Unavailable Iris Shah Attending Unavailable Vu, Mitchell Chi Referring Unavailable Vu, Mitchell Chi Primary Care Unavailable Iris Shah Attending Unavailable Radhaorelli Iris Referring Unavailable Vu, Mitchell Chi Primary Care Unavailable Anabela Lewis PA-C Attending Unavailable Vu, Mitchell Chi Referring Unavailable Vu, Mitchell Chi Primary Care Unavailable DossieNancy D.C. Attending Unavailable Vu, Mitchell Chi Referring Unavailable Vu, Mitchell Chi Primary Care Unavailable Rigo Valverde Attending Unavailable Cebul Rigo Referring Unavailable Vu, Mitchell Chi Primary Care Unavailable DossieNancy D.C. Attending Unavailable Vu, Mitchell Chi Referring Unavailable Vu, Mitchell Chi Primary Care Unavailable Rigo Valverde Attending Unavailable Ritikabul Rigo Referring Unavailable Vu, Mitchell Chi Primary Care Unavailable Rigo Valverde Consulting Unavailable Cesar Roberts Attending Unavailable Iris Shah Attending Unavailable Vu, Mitchell Chi Referring Unavailable Vu, Mitchell Chi Primary Care Unavailable Desirae Minaya Attending Unavailable Vu, Mitchell Chi Primary Care Unavailable Marcanthony, Desirae Referring Unavailable MarcanthonyDesirae Attending Unavailable Vu, Mitchell Chi Referring Unavailable Vu, Mitchell Chi Primary Care Unavailable Desirae Minaya Attending Unavailable Vu, Mitchell Chi Primary Care Unavailable Marcanthony, Desirae Referring Unavailable Marcanthony, Desirae Attending Unavailable Marcanthony, Desirae Referring Unavailable Vu, Mitchell Chi Primary Care Unavailable MarcanthonyDesirae Consulting Unavailable Pb Arline Attending Unavailable Pb, Arline Referring Unavailable Vu, Mitchell Chi Primary Care Unavailable MarcanthonyDesirae Attending Unavailable Vu, Mitchell Chi Referring Unavailable Vu, Mitchell Chi Attending Unavailable Vu, Mitchell Chi Primary Care Unavailable Vu, Mitchell Chi Attending Unavailable Vu, Mitchell Chi Referring Unavailable Vu, Mitchell Chi Primary Care Unavailable Rigo Valverde Attending Unavailable Pb, Arline Referring Unavailable Cesar Roberts Attending Unavailable Vu, Mitchell Chi Referring Unavailable Cesar Roberts Attending Unavailable Cesar Roberts Referring Unavailable Vu, Mitchell Chi Primary Care Unavailable Vu, Mitchell Chi Primary Care Unavailable Dao Neumann Attending Unavailable Vu, Mitchell Chi Primary Care Unavailable Jopperi, Cami Admitting Unavailable Pb, Arline Consulting Unavailable Yokasta Burgos Attending Unavailable [place], Cesar Consulting Unavailable Jopperi, Acmi Admitting Unavailable Jopperi, Cami Attending Unavailable Vu, Mitchell Chi Primary Care Unavailable Jopperi, Cami Consulting Unavailable Jopperi, Cami Admitting Unavailable Ashelfah, Ghasem Attending Unavailable Vu, Mitchell Chi Primary Care Unavailable Pb, Arline Consulting Unavailable Ashelfah, Ghasem Consulting Unavailable Jopperi, Cami Admitting Unavailable Ashelfah, Ghasem Attending Unavailable Vu, Mitchell Chi Primary Care Unavailable Pb, Arline Consulting Unavailable [place], Cesar Consulting Unavailable Ashelfah, Ghasem Consulting Unavailable Jopperi, Cami Admitting Unavailable Domenic Cesar Attending Unavailable Vu, Mitchell Chi Primary Care Unavailable Pb, Arline Consulting Unavailable Domenic, Cesar Consulting Unavailable Ashelfah, Ghasem Consulting Unavailable Jopperi, Cami Admitting Unavailable Anabela Lewis PA-C Attending Unavailable Vu, Mitchell Chi Primary Care Unavailable Pb, Arline Consulting Unavailable Domenic, Cesar Consulting Unavailable White, Yokasta Consulting Unavailable Cami Sanchez Admitting Unavailable White, Yokasta Attending Unavailable Vu, Mitchell Chi Primary Care Unavailable Pb, Arline Consulting Unavailable Domenic, Cesar Consulting Unavailable White, Yokasta Consulting Unavailable HACKSHAW, KVH HEAVEN Attending Unavailable VU, MITCHELL-CHI Referring Unavailable VU, MITCHELL-CHI Primary Care Unavailable CABALLEROPB GIFFORD A Attending Unavailable VU, MITCHELL-CHI Referring Unavailable VU, MITCHELL-CHI Primary Care Unavailable HACKSHAW, KVH HEAVEN Attending Unavailable VU, MITCHELL-CHI Referring Unavailable VU, MITCHELL-CHI Primary Care Unavailable CABALLEROPB GIFFORD A Attending Unavailable VU, MITCHELL-CHI Referring Unavailable VU, MITCHELL-CHI Primary Care Unavailable HACKSHAW, KVH HEAVEN Attending Unavailable VU, MITCHELL-CHI Referring Unavailable VU, MITCHELL-CHI Primary Care Unavailable CABALLERO, PB A Attending Unavailable VU, MITCHELL-CHI Referring Unavailable VU, MITCHELL-CHI Primary Care Unavailable HACKSHAW, KVH HEAVEN Attending Unavailable VU, MITCHELL-CHI Referring Unavailable VU, MITCHELL-CHI Primary Care Unavailable [place], Cami Attending Unavailable PROVIDER, UNKNOWN Referring Unavailable VU, MITCHELL-CHI Primary Care Unavailable [place], Cami Attending Unavailable PROVIDER, UNKNOWN Referring Unavailable VU, MITCHELL-CHI Primary Care Unavailable Crys, Cami Attending Unavailable PROVIDER, UNKNOWN Referring Unavailable VU, MITCHELL-CHI Primary Care Unavailable Crys, Cami Attending Unavailable PROVIDER, UNKNOWN Referring Unavailable VU, MITCHELL-CHI Primary Care Unavailable Crys, Cami Attending Unavailable PROVIDER, UNKNOWN Referring Unavailable VU, MITCHELL-CHI Primary Care Unavailable [place], Cami Attending Unavailable PROVIDER, UNKNOWN Referring Unavailable VU, MITCHELL-CHI Primary Care Unavailable Kentrell, Dr. Lori Moeller Attending Unavailable Vu, Mitchell-chi Primary Care Unavailable Kentrell, Dr. Lori Moeller Attending Unavailable Vu, Mitchell-chi Primary Care Unavailable Kentrell, Dr. Lori Moeller Attending Unavailable Vu, Mitchell-chi Primary Care Unavailable Kentrell, Dr. Lori Moeller Attending Unavailable Vu, Mitchell-chi Primary Care Unavailable Kentrell, Dr. Lori Moeller Attending Unavailable Vu, Mitchell-chi Primary Care Unavailable Kentrell, Dr. Lori Moeller Attending Unavailable Vu, Mitchell-chi Primary Care Unavailable Juan, Dr. Vicky Gonzalez Admitting Unavailable Juan, Dr. Vicky Gonzalez Attending Unavailable Dr. Arline Ambriz I Referring Unavailable Vu, Mitchell-chi Primary Care Unavailable Kentrell, Dr. Lori Moeller Attending Unavailable Vu, Mitchell-chi Primary Care Unavailable Kentrell, Dr. Lori Moeller Attending Unavailable Vu, Mitchell-chi Primary Care Unavailable Kentrell, Dr. Lori Moeller Attending Unavailable Vu, Mitchell-chi Primary Care Unavailable Kentrell, Dr. Lori Moeller Attending Unavailable Vu, Mitchell-chi Primary Care Unavailable Kentrell, Dr. Lori Moeller Attending Unavailable Vu, Mitchell-chi Primary Care Unavailable Dr. Marcella Diaz Attending Unavailable Dr. Arline Ambriz I Referring Unavailable Vu, Mitchell-chi Primary Care Unavailable Kentrell, Dr. Lori Moeller Attending Unavailable Vu, Mitchell-chi Primary Care Unavailable GAIL Attending Unavailable Kentrell, Dr. Lori Moeller Referring Unavailable Vu, Mitchell-chi Primary Care Unavailable PROBLEMS PROBLEMS DATE TYPE CONDITION / CODE ATTENDING STATUS SOURCE 08/25/2018 Admitting Encounter for other Dr. Maria L Pfeiffer diagnosis preprocedural [facility] examination / Repository Z01.818(ICD-10) 08/25/2018 Final diagnosis Encounter for other Dr. Maria L Diaz [facility] (discharge) preprocedural [facility] examination / Repository Z01.818(ICD-10) 07/28/2018 Unknown I27.21 - Secondary Cesar Roberts pulmonary arterial Community hypertension / Hospital I27.21(ICD-10) Repository 07/28/2018 Unknown N18.6 - End stage Cesar Roberts renal disease / Community N18.6(ICD-10) Hospital Repository 07/26/2018 Admitting Dependence on renal Crys, [facility] Diagnosis dialysis / System Z99.2(ICD-10) Repository 07/26/2018 Admitting Hyp chr kidney [place], [facility] Diagnosis disease w stage 5 System chr kidney disease Repository or ESRD / I12.0(ICD-10) 07/26/2018 Admitting Type 2 diabetes Crys, [facility] Diagnosis mellitus w diabetic System chronic kidney Repository disease / E11.22(ICD-10) 07/26/2018 Admitting End stage renal Crys, [facility] Diagnosis disease / System N18.6(ICD-10) Repository 07/26/2018 Admitting Other cervical disc Crys, Cami Active [facility] Diagnosis degeneration, unsp System cervical region / Repository M50.30(ICD-10) 07/26/2018 Admitting Glomerular disease Cami Lau Active [facility] Diagnosis in systemic lupus System erythematosus / Repository M32.14(ICD-10) 07/26/2018 Admitting Allergy status to Cami Lau Active [facility] Diagnosis sulfonamides status System / Z88.2(ICD-10) Repository 07/26/2018 Admitting Allergy status to Cami Lau Active [facility] Diagnosis oth drug/meds/biol System subst status / Repository Z88.8(ICD-10) 07/26/2018 Admitting Anemia in chronic Cami Lau Active [facility] Diagnosis kidney disease / System D63.1(ICD-10) Repository 07/26/2018 Admitting Presence of Cami Lau Active [facility] Diagnosis artificial hip System joint, bilateral / Repository Z96.643(ICD-10) 07/26/2018 Admitting Gastro-esophageal Cami Lau Active [facility] Diagnosis reflux disease System without esophagitis Repository / K21.9(ICD-10) 07/26/2018 Admitting Unspecified Cami Lau Active [facility] Diagnosis adrenocortical System insufficiency / Repository E27.40(ICD-10) 07/11/2018 Final diagnosis End stage renal Dr. Kentrell [facility] (discharge) disease / [facility] N18.6(ICD-10) Repository 06/17/2018 Admitting Systemic Lupus PB CABALLERO Active [facility] diagnosis Erythematosus / [facility] [id number]() [facility] Repository 06/17/2018 Admitting Fibromyalgia / 566() MEME JEAN Active [facility] diagnosis [facility] Repository 06/07/2018 Unknown R53.81 - Other Vu, Mitchell Chi [facility] malaise / Community R53.81(ICD-10) Hospital Repository 07/05/2018 Unknown N18.5 - Chronic Cebul, Rigo Active [facility] kidney disease, Community stage 5 / Hospital N18.5(ICD-10) Repository 05/20/2018 Admitting Hyperkalemia / Cami Lau Active [facility] Diagnosis E87.5(ICD-10) System Repository 05/20/2018 Admitting Hyperlipidemia, Cami Lau [facility] Diagnosis unspecified / System E78.5(ICD-10) Repository 05/20/2018 Admitting Decreased white Cami Lau [facility] Diagnosis blood cell count, System unspecified / Repository D72.819(ICD-10) 05/20/2018 Admitting [facility]olepsy [facility] / System G47.419(ICD-10) Repository 05/20/2018 Admitting Compression of vein Cami Lau [facility] Diagnosis / I87.1(ICD-10) System Repository 05/20/2018 Admitting Oth complication of [facility] vascular prosth System dev/grft, init / Repository T82.898A(ICD-10) 05/20/2018 Admitting Other spondylosis, [facility] cervical region / System M47.892(ICD-10) Repository 05/20/2018 Admitting Nutritional anemia, Cami Lau [facility] Diagnosis unspecified / System D53.9(ICD-10) Repository 05/20/2018 Admitting [facility]infective [facility] gastroenteritis and System colitis, unspecified Repository / K52.9(ICD-10) 05/20/2018 Admitting Resistance to Cami Lau [facility] Diagnosis unspecified System antimicrobial drugs Repository / Z16.30(ICD-10) 05/20/2018 Admitting Allergy status to [facility] other antibiotic System agents status / Repository Z88.1(ICD-10) 05/20/2018 Admitting Overweight / Cami [facility] Diagnosis E66.3(ICD-10) System Repository 05/20/2018 Admitting Body mass index Cami Lau [facility] Diagnosis (BMI) 26.0-26.9, System adult / Repository Z68.26(ICD-10) 05/13/2018 Unknown R35.0 - Frequency of Marcanthony, Active [facility] micturition / [employer] R35.0(ICD-10) Hospital Repository 04/26/2018 Admitting 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 / Repository I82.B21(ICD-10) 04/26/2018 Admitting Spondylosis w/o Cami Lau [facility] Diagnosis myelopathy or System radiculopathy, Repository cervical region / M47.812(ICD-10) 04/26/2018 Admitting Anemia, unspecified Cami Lau [facility] Diagnosis / D64.9(ICD-10) System Repository 04/26/2018 Admitting Presence of Cami Lau [facility] Diagnosis unspecified System artificial hip joint Repository / Z96.649(ICD-10) 04/26/2018 Admitting Oth bacterial agents Huy Lauic [facility] Diagnosis as the cause of System diseases classd Repository elswhr / B96.89(ICD-10) 04/26/2018 Admitting Resistance to other Cami Lau [facility] Diagnosis specified System antimicrobial drug / Repository Z16.39(ICD-10) 04/26/2018 Admitting Systemic lupus Huy Lauic [facility] Diagnosis erythematosus, System unspecified / Repository M32.9(ICD-10) 04/21/2018 Admitting Acute embolism and Huy Lauic [facility] Diagnosis thrombosis of System unspecified Repository subclavian vein / I82.B19(ICD-10) 04/21/2018 Admitting Type 2 diabetes Huy Lauic [facility] Diagnosis mellitus without System complications / Repository E11.9(ICD-10) 04/21/2018 Admitting Essential (primary) Cami Lau [facility] Diagnosis hypertension / System I10(ICD-10) Repository 03/16/2018 Unknown M99.03 - Segmental Dossie, Nancy Active [facility] and somatic [facility] Community dysfunction of Hospital lumbar region / Repository M99.03(ICD-10) 03/16/2018 Unknown M99.02 - Segmental Dossie, Nancy [facility] and somatic [facility] Community dysfunction of Hospital thoracic region / Repository M99.02(ICD-10) 03/16/2018 Unknown M99.01 - Segmental Dossie, Nancy [facility] and somatic [facility] Community dysfunction of Hospital cervical region / Repository M99.01(ICD-10) 03/10/[address] Final diagnosis Major depressive Dr. Juan Active [facility] (discharge) disorder, recurrent, [facility] moderate / Lisa Repository F33.1(ICD-10) 03/04/2018 Unknown M25.522 - Pain in Chicorelli, Active [facility] left elbow / [facility] M25.522(ICD-10) Hospital Repository 02/25/2018 Unknown M54.9 - Dorsalgia, Nancy Magaña Active [facility] unspecified / [facility] Community M54.9(ICD-10) Hospital Repository 02/23/2018 Admitting Follow-up / 145() PB CBAALLERO Active [facility] Repository 03/15/2018 Unknown Z01.810 - Encounter Cesar Roberts [facility] for preprocedural [facility] cardiovascular Hospital examination / Repository Z01.810(ICD-10) 02/11/2018 Unknown M51.26 - Other Nancy Magaña Active [facility] intervertebral disc [facility] Community displacement, lumbar Hospital region / Repository M51.26(ICD-10) 02/10/2018 Unknown M79.89 - Other Rigo Valverde [facility] specified soft Community tissue disorders / Hospital M79.89(ICD-10) Repository 01/25/2018 Unknown T82.898A - Other Debbie AHMADI Active [facility] specified Anabela Community complication of Hospital vascular prosthetic Repository devices, implants and grafts, initial encounter / T82.898A(ICD-10) 01/20/2018 Unknown D64.9 - Anemia, BrookeGarcia rodríguez Active [facility] unspecified / Community D64.9(ICD-10) Hospital Repository 01/20/2018 Unknown D72.819 - Decreased Garcia Marte Active [facility] white blood cell Community count, unspecified / Hospital D72.819(ICD-10) Repository 01/11/2018 Unknown I34.0 - Nonrheumatic Cesar Roberts [facility] mitral (valve) Community insufficiency / Hospital I34.0(ICD-10) Repository 01/11/2018 Unknown I36.1 - Nonrheumatic Cesar Roberts [facility] tricuspid (valve) Community insufficiency / Hospital I36.1(ICD-10) Repository 12/10/2017 Unknown G89.18 - Other acute CeRigo banuelos Active [facility] postprocedural pain Community / G89.18(ICD-10) Hospital Repository 11/30/2017 Unknown E11.9 - Type 2 Vu, Mitchell Chi Active [facility] diabetes mellitus Community without Hospital complications / Repository E11.9(ICD-10) 11/30/2017 Unknown I10 - Essential Vu, Mitchell Chi Active [facility] (primary) Community hypertension / Hospital I10(ICD-10) Repository 11/19/2017 Unknown M32.14 - Glomerular MAURI HERRING Active [facility] disease in systemic Community lupus erythematosus Hospital / M32.14(ICD-10) Repository 11/17/2017 Admitting Neck Pain / [id number]() [facility] Active [facility] diagnosis [facility] Repository 11/17/2017 Admitting Hip Pain / [id number]() [facility] Active [facility] diagnosis [facility] Repository 11/17/2017 Admitting Shoulder Pain / [facility] diagnosis [id number]() [facility] Repository 10/12/2017 Unknown R19.7 - Diarrhea, Vu, Mitchell Chi Active [facility] unspecified / Community R19.7(ICD-10) Hospital Repository 09/16/2017 Unknown R06.89 - Other Lenora, Active [facility] abnormalities of [facility] breathing / Hospital R06.89(ICD-10) Repository 09/16/2017 Unknown R69 - Illness, Cubero, Active [facility] unspecified / [place] R69(ICD-10) Hospital Repository PROCEDURES PROCEDURES No Procedure Records FoundRESULTS RESULTS OFFICE VISIT Observed: 08/30/2018 Status: UNK Source: [facility] (CARDIOLOGY) 8:00 AM HOSPITALS REPOSITORY No report was sent TRANSPLANT SW Observed: 08/26/2018 Status: UNK Source: [facility] ASSESSMENT UPDATE 3:13 PM HOSPITALS REPOSITORY Note Body SW met with pt, pt's mother, and pt's brother, for psychosocial update. Pt is alert and oriented x3. She was pleasant and engaged. Pt had a flat affect. Pt's mother does not speak Kyrgyz, thus did not speak. Pt's brother speaks Kyrgyz. He was quiet and answered all questions. She states she was hospitalized twice in 2017 - Sep for pneumonia and Aug for unresponsiveness due to low blood sugar, narcol epsy, and lack of sleep. Pt started dialysis October 2017. Pt states she has questions about her insurance, glad to be meeting with financial counselor to discuss. Pt states she feels like she is being forced to join a managed care product of Medicaid. Pt identifies her mother and brother as primary support. Pt lives with mother. Mother has ALS. Pt's brother works and states he tries to be at pt's ho me as much as possible. Pt states back up support is another brother and sister. Pt states she was denied listing at [facility] for multiple reasons. Pt reports her mood as low. Pt was diagnosed with chronic d epression in 1995. Pt states she is taking Cymbalta, states medication manages symptoms alright. Pt seeing a psychologist monthly or bimonthly. Pt also sees a psychiatrist every 3 months. Pt states sh linda has been feeling some restlessness. She was prescribed Ativan, but states she was told to avoid due to kidney disease. Pt is moderate psychosocial risk due to mood and limited support system. SW will see yearly. Signatures Electronically signed by : ALISA Phillips; Aug 26 2018 3:13PM EST (Author) ESTABLISHED VISIT Observed: 08/25/2018 Status: UNK Source: [facility] (NEPHROLOGY) 8:40 PM HOSPITALS REPOSITORY Chief Complaint Review of Kidney Transplant Listing Status History of Present Illness REFERRING DOCTOR: Dr. Arline Ambriz -DEMOGRAPHICS- Ethnicity: Gender: female -PRIMARY DISEASE- Primary Dx: SLE [x] DIABETES: [x] Type 2 ONSET: age 32 Insulin required: yes (Lantus 25 units AM) -DIALYSIS HISTORY- [x] Hemodialysis Start Date: 11/04/16 Unit: [facility] [x] MWF -ACCESS HISTORY- Current Access: catheter (no success with left AVF) LISTING INFORMATION: [x] Listing Date (If different than date of 1st dialysis): 09/01/16 -PMH/PSH- History: none -URINE OUTPUT- [x] Less than 1 cup per day -HOSPITALIZATIONS/ED VISITS- [x] Recent hospitalizations and/or ED visits as below: 10/11/17 (Respiratory Infection treated with abx); 08/2018 (Patient presented with narcolepsy and loss of responsiveness that she attributes to hypoglycemia) -FUNCTIONAL STATUS- -Karnofsky score: 70 [x] NO Symptomatic PVD -POTENTIAL DONORS- [x] Potential Donor(s): Brother is interested -TRANSFUSION HISTORY- Patient is blood type: A positive [x] Has had blood transfusion in past [x]OTHER: 48 year old female presents to the clinic with history of SLE since age 25. Was treated with Cytoxan, Plaquenil, and Prednisone. Initially had cerebritis, and then had renal involvement. Also had been o n [employer]. She has been listed for transplantation since 08/2016. 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 Patient was hospitalized last week for 3 days after she was found by her mother to be unresponsive at home. Mother became alarmed after patient missed her dialysis appointment. She states that this is h er third episode of non-responsiveness. The first episode occurred prior to her one week hospitalization in September for pneumonia. She had a second episode of non-responsiveness a couple of weeks ago. She attributes her symptoms to worsening narcolepsy, hypoglycemia, and sleep patterns. Patient reports that her last A1C was 6.1. Patient denies any hematuria or recent kidney calculi. Patient lives pa rt time with her mother and brother but does not have time clock repairer support. The patient has multiple complications from severe renal disease including anemia, secondary hyperparathyroidism, and osteodystrophy. The patient is here today for an evaluation for kidney transplantati on to improve quality of life and decrease the risk of cardiovascular disease, coronary artery disease and stroke. The patient is doing well without complaints. Denies chest pain, SOB, palpitation, dyspnea on exertion, swelling, dysuria, fever, nausea, vomiting, diarrhea, and flu-like symptoms. Apart from the HPI, review of 14 systems was otherwise negative for constitutional, head/ears/eyes/nose/and throat, cardiac, respiratory, gastrointestinal, genitourinary, endocrinologic, hematologic, ne urologic, dermatologic, musculoskeletal, allergic symptoms. Active Problems Depression (311) (F32.9) Diabetes mellitus (250.00) (E11.9) ESRD on hemodialysis (585.6,V45.11) (N18.6,Z99.2) Fibromyalgia (729.1) (M79.7) Pre-transplant evaluation for kidney transplant (V72.83) (Z01.818) Systemic lupus erythematosus (710.0) (M32.9) Past Medical History History of end stage renal disease (V13.09) (Z87.448) Surgical History History of Neuroplasty Median Nerve At Carpal Tunnel Family History Family history of ESRD (end stage renal disease) FH: heart attack (V17.3) (Z82.49) Social History Activities of daily living (ADL's), independent Does not use illicit drugs (V49.89) (Z78.9) Does not use tobacco (V49.89) (Z78.9) Lives with parents Never a smoker No alcohol use Allergies Bactrim Allergy; Rash; Recorded By: Mariel Mccray; 03/31/2016 3:33:48 PM Sulfa Antibiotics Allergy; Swelling; Recorded By: Mariel Mccray; 03/31/2016 3:33:48 PM NEGRO Inhibitors Recorded By: Lashon Estes; 07/29/2017 4:00:36 PM lisinopril Recorded By: Lashon Estes; 07/29/2017 4:00:36 PM swelling (required intubation) Current Meds Adderall XR 10 MG Oral Capsule Extended Release 24 Hour; TAKE 1 CAPSULE DAILY; Therapy: (Recorded:[id number]) to Recorded Dispense: 0 Days ; #: Sufficient Capsule Extended Release 24 Hour; Refill: 0; BEHZAD = N; Record; Msg to Pharmacy: as needed; Last Updated By: Mariel Mccray; 04/29/2016 2:32:46 PM Atorvastatin Calcium 20 MG Oral Tablet; TAKE 1 TABLET DAILY DIRECTED; Therapy: (Recorded:[id number]) to Recorded Dispense: 0 Days ; #: Sufficient Tablet; Refill: 0; BEHZAD = N; Record; Last Updated By: Mariel Mccray; 03/31/2016 3:33:47 PM Baclofen 10 MG Oral Tablet; TAKE 1 TABLET EVERY 8 HOURS NEEDED FOR MUSCLE SPASM; Therapy: (Recorded:[id number]) to Recorded Dispense: 0 Days ; #: Sufficient Tablet; Refill: 0; BEHZAD = N; Record; Last Updated By: Mariel Mccray; 03/31/2016 3:33:48 PM Calcium Acetate 667 MG CAPS; TAKE 1 CAPSULE 3 TIMES DAILY WITH MEALS; Therapy: [id number] to Recorded Dispense: 0 Days ; #: Sufficient Capsule; Refill: 0; BEHZAD = N; Record; Last Updated By: Lashon Estes; 07/29/2017 4:21:23 PM Cetirizine HCl - 5 MG Oral Tablet; TAKE 1 TABLET DAILY DIRECTED; Therapy: [id number] to Recorded Dispense: 0 Days ; #: Sufficient Tablet; Refill: 0; BEHZAD = N; Record; Last Updated By: Lashon Estes; 07/29/2017 4:25:21 PM Clobetasol Propionate 0.05 % External Cream; APPLY SPARINGLY TO AFFECTED AREA(S) TWICE DAILY; Therapy: (Recorded:[id number]) to Recorded Dispense: 0 Days ; #: Sufficient GM; Refill: 0; BEHZAD = N; Record; Last Updated By: Mariel Mccray; 03/31/2016 3:33:48 PM Evoxac 30 MG Oral Capsule; TAKE 1 CAPSULE 3 TIMES DAILY; Therapy: (Recorded:29Apr2016) to Recorded Dispense: 0 Days ; #: Sufficient Capsule; Refill: 0; BEHZAD = N; Record; Msg to Pharmacy: 1tab/three times daily; Last Updated By: Mariel Mccray; 04/29/2016 2:02:01 PM Fluticasone Propionate 50 MCG/ACT Nasal Suspension; USE 2 SPRAYS IN EACH NOSTRIL TWICE DAILY; Therapy: (Recorded:29Apr2016) to Recorded Dispense: 0 Days ; #: Sufficient GM; Refill: 0; BEHZAD = N; Record; Last Updated By: Mariel Mccray; 04/29/2016 2:04:17 PM Furosemide 40 MG Oral Tablet; TAKE TABLET take 1 tablet twice daily on non dialysis days; Therapy: [id number] to Recorded Dispense: 0 Days ; #: Sufficient Tablet; Refill: 0; BEHZAD = N; Record; Last Updated By: Lashon Estes; 07/29/2017 4:40:20 PM HumaLOG 100 UNIT/ML Subcutaneous Solution; USE DIRECTED; Therapy: (Recorded:[id number]) to Recorded Dispense: 0 Days ; #: Sufficient ML; Refill: 0; BEHZAD = N; Record; Last Updated By: Mariel Mccray; 03/31/2016 3:33:48 PM Ketoconazole SHAM; APPLY DIRECTED; Therapy: (Recorded:[id number]) to Recorded Dispense: 0 Days ; #: Sufficient ML; Refill: 0; BEHZAD = N; Record; Last Updated By: Mariel Mccray; 03/31/2016 3:33:48 PM Lantus 100 UNIT/ML Subcutaneous Solution; INJECT 1 UNIT Twice daily; Therapy: (Recorded:29Jul2017) to Recorded Dispense: 0 Days ; #: Sufficient ML; Refill: 0; BEHZAD = N; Record; Msg to Pharmacy: as directed; Last Updated By: Lashon Estes; 07/29/2017 4:25:21 PM Lidocaine 5 % External Ointment; APPLY TO AFFECTED AREAS DIRECTED; Therapy: (Recorded:[id number]) to Recorded Dispense: 0 Days ; #: Sufficient GM; Refill: 0; BEHZAD = N; Record; Last Updated By: Mariel Mccray; 04/29/2016 2:24:48 PM Lyrica 50 MG Oral Capsule; TAKE 1 CAPSULE TWICE DAILY; Therapy: 29Jul2017 to Recorded Dispense: 0 Days ; #: Sufficient Capsule; Refill: 0; BEHZAD = N; Record; Last Updated By: Lashon Estes; 07/29/2017 4:36:39 PM Metoprolol Tartrate 50 MG Oral Tablet; Take 1 tablet twice daily; Therapy: (Recorded:29Jul2017) to Recorded Dispense: 0 Days ; #: Sufficient Tablet; Refill: 0; BEHZAD = N; Record; Last Updated By: Lashon Estes; 07/29/2017 4:21:53 PM Montelukast Sodium 10 MG Oral Tablet; TAKE 1 TABLET DAILY; Therapy: (Recorded:[id number]) to Recorded Dispense: 0 Days ; #: Sufficient Tablet; Refill: 0; BEHZAD = N; Record; Last Updated By: Mariel Mccray; 03/31/2016 3:33:48 PM NIFEdipine ER 90 MG Oral Tablet Extended Release 24 Hour; TAKE 1 TABLET DAILY; Therapy: 29Jul2017 to Recorded Dispense: 0 Days ; #: Sufficient Tablet Extended Release 24 Hour; Refill: 0; BEHZAD = N; Record; Last Updated By: Lashon Estes; 07/29/2017 4:38:01 PM Omeprazole 40 MG Oral Capsule Delayed Release; TAKE 1 CAPSULE TWICE DAILY; Therapy: (Recorded:[id number]) to Recorded Dispense: 0 Days ; #: Sufficient Capsule Delayed Release; Refill: 0; BEHZAD = N; Record; Last Updated By: Mariel Mccray; 03/31/2016 3:33:48 PM OxyCODONE HCl - 10 MG Oral Tablet; Take 1 tablet daily; Therapy: 29Jul2017 to Recorded Dispense: 0 Days ; #: Sufficient Tablet; Refill: 0; BEHZAD = N; Record; Last Updated By: Lashon Estes; 07/29/2017 4:36:39 PM PredniSONE 5 MG Oral Tablet; TAKE 1 TABLET DAILY; Therapy: (Recorded:29Jul2017) to Recorded Dispense: 0 Days ; #: Sufficient Tablet; Refill: 0; BEHZAD = N; Record; Last Updated By: Lashon Estes; 07/29/2017 4:25:21 PM Renal-Lobo 0.8 MG Oral Tablet; Take 1 tablet daily; Therapy: 29Jul2017 to Recorded Dispense: 0 Days ; #: Sufficient Tablet; Refill: 0; BEHZAD = N; Record; Last Updated By: Lashon Estes; 07/29/2017 4:41:37 PM Retin-A GEL; APPLY DIRECTED; Therapy: (Recorded:[id number]) to Recorded Dispense: 0 Days ; #: Sufficient GM; Refill: 0; BEHZAD = N; Record; Last Updated By: Mariel Mccray; 03/31/2016 3:33:48 PM Tradjenta 5 MG Oral Tablet; TAKE 1 TABLET DAILY; Therapy: 29Jul2017 to Recorded Dispense: 0 Days ; #: Sufficient Tablet; Refill: 0; BEHZAD = N; Record; Last Updated By: Lashon Estes; 07/29/2017 4:27:36 PM Vitamin D3 65301 UNIT Oral Capsule; Therapy: (Recorded:[id number]) to Recorded Dispense: 0 Days ; #: Sufficient Capsule; Refill: 0; BEHZAD = N; Record; Msg to Pharmacy: 1 tab/every 7 days; Last Updated By: Mariel Mccray; 03/31/2016 3:33:48 PM Zofran 4 MG Oral Tablet; Therapy: (Recorded:[id number]) to Recorded Dispense: 0 Days ; #: Sufficient Tablet; Refill: 0; BEHZAD = N; Record; Msg to Pharmacy: Take 1-2 tablets every 8 hr.; Last Updated By: Mariel Mccray; 04/29/2016 2:32:46 PM Vitals Vital Signs Recorded: [id number] 02:06PM Vqqoqtstuix06.4 F, Oral Heart Rate92 Graoyalo576 Iwstoohmu83 Height5 ft 4 in Ubkajw336 lb 11.2 oz BMI Lngusqqrvw89.87 BSA Calculated1.73 O2 Kfcptsrtzj15, RA Physical Exam Constitutional: Abnormal appears older than her stated age, poor dentition. Psychiatric: Not oriented to person, place, and time blunt affect, fatigue. Neurologic: Grossly nonfocal. Asterixis is not present. Neck: No thyromegaly, jugular venous distension or audible carotid bruits. Cardiovascular: Auscultation of heart: Normal rate and rhythm, normal S1 and S2, no murmurs. There was no pericardial friction rub. Pulmonary: lungs are clear to auscultation. Abdomen: Soft, non tender to palpation, normoactive bowel sounds. No organomegaly, masses or audible bruits. Kidneys: Both lower kidney pole were not palpable. Costovertebral Angle: Non tender with percussion. Extremities: Exam of extremities for edema was normal. No clubbing of the fingernails and no cyanosis. Skin: Warm, pink, well conditioned; no rashes or lesions. No livedo reticularis. Lymphatic: No lymphadenopathy. Additional Findings: right eye gait. Results/Data CROSSMATCH, [id number] 04:59PMLori Pfeiffer Test NameResultFlagReference Crossmatch, FreezeCOMMENT SEE SEPARATE REPORT. Diagnoses/Problems Pre-transplant evaluation for kidney transplant (V72.83) (Z01.818) Patient Discussion/Summary [x] Available Laboratory Data was reviewed [x] Available Radiology Images were reviewed Plan: -Patient should follow up with her grain trimmer for evaluation of her DM. -Patient should follow up with clinic in 3 months, pending narcolepsy treatment and improvement of her sleep/wake cycles. By signing my name below, I, Betina Oscar, attest that this documentation has been prepared under the direction and in the presence of Dr.Aparna Diaz. All medical record entries made by the Betina were at my direction and personally dictated by me. I have reviewed the chart and agree that the record accurately reflects my personal performance of the h istory, physical exam, discussion and plan. TH CHEST 2 VIEW PA Observed: 08/25/2018 Status: F Source: [facility] 4:42 PM [facility] REPOSITORY Patient Name: PAVITHRA PAINTER STUDY: TH CHEST 2 VIEW PA AND LAT; 08/25/2018 4:42 pm INDICATION: Signs/Symptoms: pre-kidney transplant. COMPARISON: Chest radiograph dated 08/10/2017. ACCESSION NUMBER(S): [id number] ORDERING CLINICIAN: LORI PFEIFFER FINDINGS: The tip of the right IJ hemodialysis catheter is overlying the cavoatrial junction. CARDIOMEDIASTINAL SILHOUETTE: Cardiomediastinal silhouette is normal in size and configuration. LUNGS: Linear opacities in bilateral lung bases are likely band-like atelectasis/scarring. No other focal consolidation, sizeable pleural effusion or pneumothorax. ABDOMEN: No remarkable upper abdominal findings. BONES: No acute osseous changes. IMPRESSION: 1. Bibasilar atelectasis. No definite focal consolidation, pleural effusion, edema or pneumothorax. 2. Right IJ hemodialysis catheter tip over the cavoatrial junction. I personally reviewed the images/study and I agree with the findings as stated. This study was interpreted at [facility], [place], [place]. Electronically signed by: KANDACE NAVARRETE MD HEPATITIS B SURF AB Collected: 08/25/2018 Status: F Source: [facility] 3:59 PM [facility] REPOSITORY TYPE CODE TESTS RESULT OUT OF RANGE REFERENCE UNITS LAB HABF2(LOINC <10 mIU/mL ) HEP B < 3.1 SURF AB Result Comment: INTERPRETIVE CRITERIA: <10 mIU/mL....NONREACTIVE >=10 mIU/mL...REACTIVE . Patients receiving more than 5 mg/day of biotin may have interference in test results. A sample should be taken no sooner than eight hours after previous dose. Contact [phone] for additional information. LAB SOURCE(LOINC) Lab Specimen Source Performed By: #### [id number] #### [facility] [address] [place] [address] HEPATIC FUNCTION Collected: 08/25/2018 Status: F Source: [facility] 3:59 PM [facility] REPOSITORY TYPE CODE TESTS RESULT OUT OF REFERENCE UNITS RANGE LAB ALB(LOINC) 3.4 - 5.0 g/dL ALBUMIN 3.6 LAB TBILI(LOIN 0.0 - 1.2 mg/dL C) BILIRUBIN,TOTAL 0.5 LAB DBILI(LOIN 0.0 - 0.3 mg/dL C) BILIRUBIN,DIRECT 0.1 LAB AP(LOINC) 33 - 110 U/L ALKALINE PHOSPHATASE 82 LAB ALT(LOINC) 7 - 45 U/L ALT 9 Result Comment: Patients treated with Sulfasalazine may generate falsely decreased results for ALT. LAB AST(LOINC) 9 - 39 U/L AST 36 LAB TP(LOINC) 6.4 - 8.2 g/dL TOTAL PROTEIN 6.9 LAB SOURCE([facility]) Lab Specimen Source Performed By: #### HEPFP #### [facility] [address] [place] [address] SYPHILIS IGG Collected: 08/25/2018 Status: F Source: [facility] [address] [place] [address] REPOSITORY TYPE CODE TESTS RESULT OUT OF REFERENCE UNITS RANGE LAB SYPHG(LOIN NONREACTIVE C) SYPHILIS IGG NON REACTIVE Result Comment: Patients receiving more than 5 mg/day of biotin may have interference in test results. A sample should be taken no sooner than eight hours after previous dose. Contact [phone] for additional information. LAB SOURCE([facility]) Lab Specimen Source Performed By: #### SYPH #### [facility] [address] [place] [address] HEPATITIS B SURFACE AG Collected: 08/25/2018 Status: F Source: [facility] [address] [place] [address] REPOSITORY TYPE CODE TESTS RESULT OUT OF REFERENCE UNITS RANGE LAB HAGFN(LOIN NONREACTIVE C) HEP.B SURFACE NONREACTIVE AG Result Comment: Patients receiving more than 5 mg/day of biotin may have interference in test results. A sample should be taken no sooner than eight hours after previous dose. Contact [phone] for additional information. LAB SOURCE([facility]) Lab Specimen Source Performed By: #### HBSAG #### [facility] [address] [place] [address] HEPATITIS C AB Collected: 08/25/2018 Status: F Source: [facility] 3:59 [facility] REPOSITORY TYPE CODE TESTS RESULT OUT OF REFERENCE UNITS RANGE LAB HCVFN(LOIN NONREACTIVE C) HEPATITIS C AB NON-REACTIVE Result Comment: Patients receiving more than 5 mg/day of biotin may have interference in test results. A sample should be taken no sooner than eight hours after previous dose. Contact [phone] for additional information. LAB SOURCE(INC) Lab Specimen Source Performed By: #### HCVAB #### [facility] [address] [place] [id number] HEPATITIS B CORE Collected: 08/25/2018 Status: F Source: [facility] AB-TOTAL 3:59 PM [facility] REPOSITORY TYPE CODE TESTS RESULT OUT OF REFERENCE UNITS RANGE LAB HCTFN(LOIN NONREACTIVE C) NONREACTIVE HEP. B CORE AB-TOTAL Result Comment: Patients receiving more than 5 mg/day of biotin may have interference in test results. A sample should be taken no sooner than eight hours after previous dose. Contact [phone] for additional information. LAB SOURCE([facility]) Lab Specimen Source Performed By: #### HBCRT #### [facility] [address] [facility] [place] [address] T-SPOT TB Collected: 08/25/2018 Status: F Source: [facility] 3:59 PM [facility] REPOSITORY TYPE CODE TESTS RESULT OUT OF REFERENCE UNITS RANGE LAB TBSIN(LOINC Normal Value: ) Negative T-SPOT.TB Negative INTERP Result Comment: A negative test result does not exclude the possibility of exposure to or infection with Mycobacterium tuberculosis (M. tuberculosis). Patients with recent exposure to TB infected individuals exhibiting a negative T-SPOT.TB result should be considered for retesting within 6 weeks or if other relevant clinical symptoms indicate. Results from T-SPOT.TB testing must be used in conjunction with each individual's epidemiological history, current medical status, and results of other diagnostic evaluations. The T-SPOT.TB test is qualitative and results are reported as positive, borderline or negative, given that the test controls perform as expected. In line with the Centers for Disease Control and Prevention's 2010 recommendation to report quantitative measurements alongside the qualitative result, the laboratory provides spot counts for informational purposes only. The T-SPOT.TB test should not be interpreted as a quantitative test. LAB TBSPA(LOINC) PANEL 0 A SPOT COUNT LAB TBSPB(LOINC) PANEL 0 B SPOT COUNT LAB TBSNG(LOINC) NIL[NEG]CONTROL Passed SPOT COUNT LAB TBSPS(LOINC) POS CONTROL SPOT Passed COUNT Performed By: #### TSPOT #### [facility] [address] [place] [address] ECHOCARDIOGRAM Observed: 08/25/2018 Status: F Source: [facility] 2:56 PM [facility], [address] [place] [address] and TRANSTHORACIC ECHOCARDIOGRAM REPORT Patient Name: PAVITHRA PAINTER Reading Physician: [id number] Yo Thurston MD Study Date: 08/25/2018 Referring Physician: Lori Pfeiffer MD MRN/PID: [id number] PCP: Accession/Order#: [id number] Department Location: [facility] Non Invasive Date of : 1970 Fellow: Gender: F Nurse: Admit Date: Recoating Machine Operator: Jovanna Becerril [facility] Admission Status: Outpatient Additional Staff: Height: 162.56 cm CC Report to: Weight: 63.50 kg Study Type: Echocardiogram BSA: 1.68 m2 Blood Pressure: 175 /93 mmHg Diagnosis/ICD: Z01.818-Encounter for other preprocedural examination Indication: Pre-transplant evaluation for kidney transplant Procedure/CPT: Echo Complete w Full [id number] Patient History: Pertinent History: DM, HTN, Renal failure, Dialysis, LE Edema. Study Detail: The following Echo studies were performed: 2D, M-Mode, Doppler and color flow. Technically challenging study due to body habitus. PHYSICIAN INTERPRETATION: Left Ventricle: The left ventricular systolic function is normal, with an estimated ejection fraction of 60%. The left ventricular cavity size is normal. The left ventricular septal wall thickness is se verely increased. There is mildly increased left ventricular posterior wall thickness. There is moderate concentric left ventricular hypertrophy. Spectral Doppler shows an impaired relaxation pattern of left ventricular diastolic filling. Left Atrium: The left atrium is mild to moderately dilated. Right Ventricle: The right ventricle is normal in size. There is normal right ventricular global systolic function. Right Atrium: The right atrium is normal in size. Aortic Valve: The aortic valve appears structurally normal. There is trace to mild aortic valve regurgitation. The peak instantaneous gradient of the aortic valve is 8.8 mmHg. Mitral Valve: The mitral valve is normal in structure. There is mild mitral valve regurgitation. Tricuspid Valve: The tricuspid valve is structurally normal. There is trace tricuspid regurgitation. The Doppler estimated RVSP is slightly elevated at 32.3 mmHg. Pulmonic Valve: The pulmonic valve is structurally normal. There is trace pulmonic valve regurgitation. Pericardium: There is no pericardial effusion noted. Aorta: The aortic root is normal. Systemic Veins: The inferior vena cava appears to be of normal size. CONCLUSIONS: 1. The left ventricular systolic function is normal with a 60% estimated ejection fraction. 2. Severely increased left ventricular septal thickness. 3. Spectral Doppler shows an impaired relaxation pattern of left ventricular diastolic filling. 4. There is moderate concentric left ventricular hypertrophy. 5. The left atrium is mild to moderately dilated. 6. Slightly elevated RVSP. QUANTITATIVE DATA SUMMARY: 2D MEASUREMENTS: Normal Ranges: IVSd: 2.31 cm (0.6-1.1cm) LVPWd: 0.98 cm (0.6-1.1cm) LVIDd: 4.28 cm (3.9-5.9cm) LVIDs: 2.68 cm LV Mass Index: 176.0 g/m2 LV % FS 37.3 % LA VOLUME: Normal Ranges: LA Volume Index: 39.4 ml/m2 M-MODE MEASUREMENTS: Normal Ranges: Ao Root: 2.80 cm (2.0-3.7cm) LAs: 3.32 cm (2.7-4.0cm) AORTA MEASUREMENTS: Normal Ranges: Asc Ao, d: 3.30 cm (2.1-3.4cm) LV SYSTOLIC FUNCTION BY 2D PLANIMETRY (MOD): Normal Ranges: EF-A4C View: 50.5 % (>55%) EF-A2C View: 57.0 % LV DIASTOLIC FUNCTION: Normal Ranges: MV Peak E: 0.88 m/s (0.7-1.2 m/s) MV Peak A: 1.01 m/s (0.42-0.7 m/s) E/A Ratio: 0.87 (1.0-2.2) MV e' 0.09 m/s (>8.0) MV A Dur: 147.64 msec E/e' Ratio: 9.76 (<8.0) MV DT: 172 msec (150-240 msec) PulmV Sys Mike: 65.36 cm/s PulmV Cade Mike: 36.23 cm/s PulmV S/D Mike: 1.80 PulmV A Revs Mike: 21.70 cm/s PulmV A Revs Dur: 96.89 msec AORTIC VALVE: Normal Ranges: AoV Vmax: 1.49 m/s (<1.7m/s) AoV Peak P.8 mmHg (<20mmHg) LVOT Max Mike: 1.04 m/s (<1.1m/s) LVOT VTI: 20.86 cm LVOT Diameter: 2.00 cm (1.8-2.4cm) AoV Area,Vmax: 2.18 cm2 (2.5-4.5cm2) AORTIC INSUFFICIENCY: AI Vmax: 5.04 m/s AI Half-time: 370 msec AI Decel Time: 1277 msec AI Decel Rate: 395.55 cm/s2 RIGHT VENTRICLE: RV 1 3.6 cm RV 2 2.7 cm RV 3 5.3 cm TAPSE: 20.0 mm RV s' 0.11 m/s TRICUSPID VALVE/RVSP: Normal Ranges: Peak TR Velocity: 2.71 m/s RV Syst Pressure: 32.3 mmHg (< 30mmHg) PULMONIC VALVE: Normal Ranges: PV Max Mike: 1.0 m/s (0.6-0.9m/s) PV Max P.8 mmHg Pulmonary Veins: PulmV A Revs Dur: 96.89 msec PulmV A Revs Mike: 21.70 cm/s PulmV Cade Mike: 36.23 cm/s PulmV S/D Mike: 1.80 PulmV Sys Mike: 65.36 cm/s AORTA: Asc Ao Diam 3.27 cm [id number] Yo Thurston MD Electronically signed on 08/25/2018 at 5:34:21 PM Final 12 LEAD ELECTROCARDIOGRAM Observed: 08/18/2018 Status: F Source: [facility] 2:16 PM [facility] Cardiovascular Services [address] [place] [address] 12 Lead EKG 08/14/18 0420 MR#: [id number] Acct: [id number] Name: PAVITHRA PAINTER Rep #: [id number] : 1970 47 From: Eren Calvillo MD Attending Dr: Yokasta Burgos Status: DIS IN Ordering Dr: Lele Garcia MD Date: 08/14/18 Location: [facility] Sex: F A Admitted: 08/12/18 Test Reason : CP Blood Pressure : / mmHG Vent. Rate : 085 BPM Atrial Rate : 085 BPM P-R Int : 150 ms QRS Dur : 090 ms QT Int : 376 ms P-R-T Axes : 014 028 124 degrees QTc Int : 447 ms Normal sinus rhythm Nonspecific ST and T wave abnormality Abnormal ECG Confirmed by EREN CALVILLO MD ([id number]), editor map CESAR SIMEON ([id number]) on 08/18/2018 2:16:06 PM Referred By: DR CERON Confirmed By:EREN CALVILLO MD 08/18/18 141 Date Eren Calvillo MD CC: Yokasta Burgos; Lele Garcia; Mitchell Womack MD Signed 12 LEAD ELECTROCARDIOGRAM Observed: 08/18/2018 Status: F Source: [place] 2:14 PM [facility] [place] [facility] Cardiovascular Services [address] [place] [address] 12 Lead EKG 08/15/18 1151 MR#: [id number] Acct: [id number] Name: PAVITHRA PAINTER Rep #: [id number] : 1970 47 From: Eren Calvillo MD Attending Dr: Yokasta Burgos Status: DIS IN Ordering Dr: Yokasta Burgos Date: 08/15/18 Location: [facility] Sex: F A Admitted: 08/12/18 Test Reason : CP Blood Pressure : / mmHG Vent. Rate : 090 BPM Atrial Rate : 090 BPM P-R Int : 140 ms QRS Dur : 086 ms QT Int : 384 ms P-R-T Axes : 033 019 141 degrees QTc Int : 469 ms Normal sinus rhythm Nonspecific ST and T wave abnormality Abnormal ECG Confirmed by EREN CALVILLO MD ([id number]), editor map CESAR SIMEON ([id number]) on 08/18/2018 2:13:32 PM Referred By: EDUAR Confirmed By:EREN CALVILLO MD 08/18/18 1413 Date Eren Calvillo MD CC: Yokasta Burgos; Mitchell Womack MD Signed SCREENING MAMM (CAD), Observed: 08/18/2018 Status: F Source: [facility] 12:17 PM [facility] HOSPITAL REPOSITORY [facility] Imaging Services [address] [place] [address] SCREENING MAMM (CAD), BILAT MR#: [id number] Acct: [id number] Name: PAVITHRA PAINTER Rep #: [id number] : 1970 F 48 From: Jonathan Garcia MD PCP: Mitchell Womack MD, Chi Status: REG CLI Study: SCREENING MAMM (CAD), BILAT Date of Exam: 08/18/18 Exam# [id number] Ordering Dr: Mitchell Womack MD MAMMOGRAPHY - BILATERAL SCREENING REASON FOR EXAM: Female, 48 years old. Routine annual screening examination. PERTINENT HISTORY: Non-contributory. TECHNIQUE: Digital bilateral breast princess (3D mammographic acquisition) in the CC and MLO projections. 2-D mediolateral oblique (MLO) and craniocaudad (CC) views of both breasts were obtained. CAD: Full Field Digital Mammography with Computer Added Detection was performed. COMPARISON: Comparison is made with prior study dated May 11, 2017 and May 07, 2016. FINDINGS: Breast Composition: The breasts are heterogeneously dense, which may obscure small masses. There are no dominant masses or suspicious calcifications. A double-lumen port catheter is seen in the right axillary region. Prominent venous markings are seen in the upper outer quadrant of the left breast. Clinical correlation is recommended. No other significant abnormalities are identified. There has been no significant change since the prior study. BI/SCREENING MAMM (CAD), BILAT IMPRESSION: Stable bilateral screening mammogram. Yearly follow-up mammogram recommended. (A) ASSESSMENT CATEGORY: BIRADS Category 2: Benign. A letter regarding these results will be sent to the patient by the facility within 30 days. Approximately 10% of breast cancers are not detected by mammography. A normal mammogram should not delay biopsy of a clinically suspicious abnormality. [id number] Electronically Signed: Jonathan Garcia MD at 13:36 EST Tel [phone], Service support , CC: Mitchell Womack MD Electric Tripper Machine Operator: Signed 12 LEAD ELECTROCARDIOGRAM Observed: 2018 Status: F Source: [place] 3:44 PM [facility] Cardiovascular Services [address] [place] [address] 12 Lead EKG 08/12/18 1643 MR#: [id number] Acct: [id number] Name: PAVITHRA PAINTER Rep #: [id number] : 1970 47 From: Eren Calvillo MD Attending Dr: Yokasta Burgos Status: DIS IN Ordering Dr: Aminata Bridges DO Date: 08/12/18 Location: [facility] Sex: F A Admitted: 08/12/18 Test Reason : ALT LOC Blood Pressure : / mmHG Vent. Rate : 079 BPM Atrial Rate : 079 BPM P-R Int : 142 ms QRS Dur : 084 ms QT Int : 428 ms P-R-T Axes : 073 044 067 degrees QTc Int : 490 ms Normal sinus rhythm Prolonged QT Abnormal ECG Confirmed by DALE GARCIA, EREN ([id number]), editor map CESAR SIMEON (56) on 2018 3:43:46 PM Referred By: RAJEEV Confirmed By:EREN CALVILLO MD 08/16/18 1543 Date Eren Calvillo MD CC: Yokasta Burgos; Aminata Bridges DO; Mitchell Womack MD Signed CONSULTATION Observed: 08/15/2018 Status: F Source: [place] 6:26 PM [facility] Medical Records Department [address] [place] [address] Consultation 08/13/18 1338 MR#: [id number] Acct: [id number] Name: PAVITHRA PAINTER Rep #: [id number] : 1970 47 From: Arline Ambriz DO PCP: Mitchell Womack MD, Chi Status: DIS IN Y Location: [place] [id number] Consultation - Renal 08/13/18 PCP/ Referring MD: Requesting physician: [] Primary care physician: Mitchell Womack Reason for Consultation:: ESRD renal mgmt - History of Present Illness History of Present Illness: The patient is a 47 year old F with 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 Patient was found unresponsive by family. Dialysis center was unable to reach the patient or her brother when she did not show for her dialysis treatment yesterday. She was set up for dialysis today. Only 900cc removed on dialysis due to low BP. Currently more responsive. Pt unable to provide history. She could not recall what happened to her at home. She does not know if she had seizures or if her sugars were low. CT of the head unremarkable. She denied fever or chills. She had an AVF placed recently by Dr. Lau at [facility]. Drainage from incision site grew Serratia marcescens done at dialysis center. She was started on ancef then switched to cefepime past Wed for infection of access site. - Allergies Allergies: Allergies NEGRO Inhibitors Allergy (Verified 08/07/18 22:06) Angioedema lisinopril Allergy (Verified 08/07/18 22:06) Angioedema Sulfa (Sulfonamide Antibiotics) Allergy (Verified 08/07/18 22:06) Rash sulfamethoxazole [From Bactrim] Allergy (Verified 08/07/18 22:06) Rash trimethoprim [From Bactrim] Allergy (Verified 08/07/18 22:06) Rash Angioderm Adverse Reaction (Unknown, Uncoded 07/27/18 11:40) Unknown - Current Medications Current Medications: Current Medications Acetaminophen (Tylenol) 650 mg PO Q6H PRN PRN PRN Reason: Mild Pain (1-3)/Temp > 100.7 F Atorvastatin Calcium (Lipitor) 20 mg PO QHS ENRIQUE Last Admin: 08/13/18 03:03 Dose: 20 mg Calcitriol (Rocaltrol) 0.25 mcg PO ONCE [facility] Dextrose (D50w Syringe) 0 gm IV X1 PRN; Protocol PRN Reason: Hypoglycemia Last Admin: 08/13/18 06:42 Dose: 25 gm Duloxetine HCl (Cymbalta) 120 mg PO DAILY [facility] Last Admin: 08/13/18 12:37 Dose: Not Given Ergocalciferol (Vitamin D) 50,000 unit PO QMONTH [facility] Famotidine (Pepcid) 40 mg PO DAILY [facility] Fluticasone Propionate (Flonase Nasal [place]) 2 spray NASAL DAILY [facility] Last Admin: 08/13/18 12:37 Dose: Not Given Glucagon () 1 mg IM .X1 PRN PRN Reason: Hypoglycemia Heparin Sodium (Porcine) (Heparin Na) 5,000 unit SC Q8 [facility] Last Admin: 08/13/18 12:37 Dose: Not Given Hydralazine HCl (Apresoline Iv) 5 mg IV Q4H PRN PRN PRN Reason: SBP GREATER THAN 170 Last Admin: 08/13/18 06:09 Dose: 5 mg Hydrocortisone Sodium Succinate (Solu-Cortef) 50 mg IV Q8 [facility] Hydroxychloroquine Sulfate (Plaquenil) [facility] Last Admin: 08/13/18 12:36 Dose: Not Given Sodium Chloride () 250 mls @ 15 mls/hr IV .[id number] PRN PRN Reason: SALINE FLUSH Ampicillin Sodium/Sulbactam (Sodium 3 gm/ Sodium Chloride) 112 mls @ 150 mls/hr IV Q8 [facility] Lactic Acid (Lac-Hydrin, Amlactin) 1 applic TOPICAL DAILY PRN PRN Reason: DRY SKIN Linagliptin (Tradjenta) 5 mg PO DAILY [facility] [facility] Magnesium Hydroxide (Milk Of Magnesia) 30 ml PO DAILY PRN PRN PRN Reason: Constipation Methylphenidate HCl (Ritalin (G)) 10 mg NG Q8 [facility] Last Admin: 08/13/18 06:07 Dose: Not Given Metoprolol Tartrate (Lopressor (Beta Cirilo)) 25 mg PO BID [facility] Last Admin: 08/13/18 03:02 Dose: 25 mg Montelukast Sodium (Singulair) 10 mg PO QHS [facility] Last Admin: 08/13/18 03:03 Dose: 10 mg Multivitamins (Multivitamin) 1 tablet PO DAILYCM [facility] Last Admin: 08/13/18 12:20 Dose: Not Given Non-Formulary Medication (Clindamycin Phos/Benzoyl Perox [Benzaclin Gel]) 1 applic TOPICAL DAILY [facility] Ondansetron HCl (Zofran) 4 mg IV Q8H PRN PRN PRN Reason: NAUSEA Sevelamer Carbonate (Renvela) 2,400 mg PO TID [facility] Sodium Chloride () 5 - 15 ml IV UD PRN PRN Reason: SALINE FLUSH Last Admin: 08/13/18 06:09 Dose: 10 ml - Past Medical History Past Medical History (Chronic Problems): Chronic Problems (Last Updated 08/13/18 @ 08:57 by Lele Garcia MD) Nonrheumatic mitral (valve) insufficiency (Chronic) Secondary pulmonary arterial hypertension (Chronic) Non-rheumatic tricuspid valve insufficiency (Chronic) End stage renal disease (Chronic) Chronic anemia (Chronic) Hypertension (Chronic) Narcolepsy (Chronic) Lupus nephritis (Chronic) Status post kidney and liver biopsy (fatty liver) Degenerative disc disease, cervical (Chronic) Cervical spondylosis (Chronic) Diabetes mellitus, type II (Chronic) SLE (systemic lupus erythematosus) (Chronic) - Past Surgical History Surgical History: - - Social History Smoking Status: Unknown if ever smoked - Family History Maternal Family History: Family History (Last Reviewed 08/12/18 @ 18:36 by Cami Sanchez DO) Mother Hypertension Kidney disease ALS (amyotrophic lateral sclerosis) Father Heart disease Hypertension Kidney disease Diabetes History Items: Diabetes, High Cholesterol, Heart Disease, Hypertension, Renal Disease, - Paternal Family History: Family History (Last Reviewed 08/12/18 @ 18:36 by Cami Sanchez DO) Mother Hypertension Kidney disease ALS (amyotrophic lateral sclerosis) Father Heart disease Hypertension Kidney disease Diabetes History Items: Diabetes, High Cholesterol, Heart Disease, Hypertension, Renal Disease Sibling Family History: Family History (Last Reviewed 08/12/18 @ 18:36 by Cami Sanchez DO) Mother Hypertension Kidney disease ALS (amyotrophic lateral sclerosis) Father Heart disease Hypertension Kidney disease Diabetes History Items: Diabetes Review of Systems Constitutional: Reports: Weakness. Denies: Chills, Fever Eyes: Reports: Blurred vision - resolved, Redness Cardiovascular: Denies: Chest Pain Respiratory: Denies: Cough, Shortness of Breath Gastrointestinal: Denies: Abdominal Pain, Constipation, Diarrhea, Nausea, Vomiting Skin: Reports: Rash - rt antecubital incision drainage. Neurological: Denies: Headaches, Tremor, Seizures Psychiatric: Reports: Anxiety, Depression Hematologic/ Lymphatic: Reports: Anemia Patient Problems: Active and Suspected Problems (Last Updated 08/13/18 @ 08:57 by Lele Garcia MD) Encephalopathy acute (Acute) - Physical Exam General: Alert, Oriented x3, Cooperative, No apparent distress HEENT: PERRLA, EOMI, - - conjunctivitis Oral: Moist Mucosa Neck: Supple Lungs: Clear to auscultation, Diminished Cardiovascular: Regular rate Abdomen: Bowel Sounds Present, Soft, Non Tender, Non-Distended Extremities: No edema, - - COREY mild edema from central stenosis, new AVF placement Skin: Incision - mild erythema Musculoskeletal: No Muscle Wasting Neurological: - - no tremor Psych/Mental Status: Normal Affect, Appropriate, Alert and oriented to time, place, person, mood and affect Vital Signs Temp Pulse Resp BP Pulse Ox 97.6 F L 124 H 12 104/77 100 08/13/18 11:00 08/13/18 11:13 08/13/18 11:00 08/13/18 11:00 08/13/18 11:00 Oxygen Flow Rate (L/min) 2 Oxygen Delivery Method Room Air Weight: 70.8 kg Body Mass Index (BMI) 28.7 Finger Stick Blood Glucose 155 Intake and Output for Last 24 Hours Intake Total 515 / 515 Output Total 900 / 900 Balance -385 / -385 Laboratory Tests Past 24 Hrs WBC RBC Hgb Hct MCV MCH MCHC RDW RDW Differential WBC POC Glucose POC Glucose 122 H 121 H 106 POC Glucose 83 127 H 74 POC Glucose 92 104 99 POC Glucose 136 H 155 H 56 L POC Glucose 70 Clinical Impression(s) from Imaging Studies Brain CT 08/12/18 15:45 IMPRESSION: 1. No acute intracranial pathology. 2. Stable borderline expansile polyp or mucocele in the anterior right ethmoid sinus, contiguous with the opacified right frontal sinus. Changes of prior medial wall antrectomies and resection of the ethmoid sinus floors again noted. The moderate bilateral mucoperiosteal thickening of the maxillary sinuses on prior study has cleared. Electronically Signed: Richardson Sky MD at 16:47 EST , Service support , Cervical Spine CT 08/12/18 15:47 IMPRESSION: 1. No acute fracture of the cervical spine. 2. Minor multilevel degenerative changes, as described above. Electronically Signed: Richardson Sky MD at 16:54 EST , Service support , Chest X-Ray 08/12/18 15:50 IMPRESSION: 1. Suboptimal inspiratory effort with minor left base crowding. 2. Right chest wall dialysis catheter unchanged. The left subclavian MediPort seen on prior study has been removed. Electronically Signed: Richardson Sky MD at 16:21 EST , Service support , Brain MRI 08/12/18 20:26 IMPRESSION: Unremarkable unenhanced MRI of the brain. Electronically Signed: Eliza Cheek MD at 10:11 EST Tel , Service support , KUB X-Ray 08/12/18 21:40 IMPRESSION: Nasogastric tube with tip at the GE junction. It needs to be advanced further by 8 to 9 cm. Electronically Signed: Abiodun Johnson DO at 22:28 EST Tel [phone], Service support , KUB X-Ray 08/12/18 22:43 IMPRESSION: Nasogastric tube with tip at the GE junction. No significant interval changes. Electronically Signed: Abiodun Johnson DO at 23:26 EST Tel [phone], Service support , KUB X-Ray 08/13/18 00:20 Assessment/Plan All Active Problems (Last Updated 08/13/18 @ 08:57 by Lele Garcia MD) Encephalopathy acute (Acute) Acute renal failure (Resolved) Chronic kidney disease (Resolved) Dehydration with hyponatremia (Resolved) Hyperkalemia (Resolved) Unresponsiveness (Resolved) 1. ESRD HD MWF. DIalysis today for missed tx yesterday. 2. Encephalopathy improved 3. DM2 primary mgmt 4. HTN BP elevated. Resume home meds 5. SLE 6. ANemia 7. Hx seizures 8. Infected access site with serratia. Continue cefepime for 3 more doses 08/15/18 1826 <Electronically signed by Arline Ambriz DO> Date Arline Ambriz DO Cosigner Signature (if applicable): Date CC: Arline Ambriz DO; Cesar Sheth MD; Mitchell Womack MD Signed DISCHARGE SUMMARY Observed: 08/15/2018 Status: F Source: [place] 5:50 PM [facility] [place] [facility] Medical Records Department [address] [place] [id number] Discharge Summary 08/15/18 1253 MR#: [id number] Acct: [id number] Name: PAVITHRA PAINTER Rep #: [id number] : 1970 47 From: Yokasta Burgos PCP: Vu GARCIA,Mitchell Yadav Status: ADM IN Location: [place] [address] Discharge Date and Diagnosis - Problem List Patient Problems: Active and Suspected Problems (Last Reviewed 08/14/18 @ 10:39 by Cesar Sheth MD) Extremity edema (Acute) Encephalopathy acute (Acute) Date of Admission: 08/12/18 Date of Discharge: 08/15/18 - Primary Discharge Diagnosis Active and Suspected Problems (Last Reviewed 08/14/18 @ 10:39 by Cesar Sheth MD) (1) Acute Encephalopathy, Suspected Multifactorial, Secondary to Narcolepsy and Polypharmacy (2) RUE Recently Infected Serratia Dialysis Access Wound (Plan IV cefepime at HD per discussion w/ nephrology) (3) ESRD on HD (4) Diabetes mellitus type II (5) SLE/Lupus Nephritis (6) HTN (7) AOCD/Fe deficiency anemia - Secondary Discharge Diagnosis Chronic Problems (Last Reviewed 08/14/18 @ 10:39 by Cesar Sheth MD) Nonrheumatic mitral (valve) insufficiency (Chronic) Secondary pulmonary arterial hypertension (Chronic) Non-rheumatic tricuspid valve insufficiency (Chronic) End stage renal disease (Chronic) Chronic anemia (Chronic) Hypertension (Chronic) Narcolepsy (Chronic) Lupus nephritis (Chronic) Status post kidney and liver biopsy (fatty liver) Degenerative disc disease, cervical (Chronic) Cervical spondylosis (Chronic) Diabetes mellitus, type II (Chronic) SLE (systemic lupus erythematosus) (Chronic) Hospital Course and Treatment Operations: None Procedures: Dialysis, EKG Summary of Care Provided: The patient is a 47 y/o F w/ PMHx: ESRD on HD, HTN, HLD, Valvular Heartr disease, Lupus w/ nephritis, Diabetes mellitus type II, AOCD, Chronic RUE edema, non-healing incision s/p attempted AVF, Pulmonary HTN, Chronic Pain Syndrome, Anxiety who presented to the [facility] ED on 08/12/18 with history of being found, decreased responsiveness at home, brought in per her family. In the ED workup included CT of the head and neck which were unremarkable. Patient status continued to be notable for encephalopathy therefore patient was admitted. CT scan of the right upper extremity initially revealed possible pocket of gas formation in and around the right sided IJ dialysis catheter and edema extending from the right chest to the right wrist with pocket of fluid in the right antecubital fossa therefore surgery, Dr. Sheth consulted with patient recent history right upper extremity antecubital fossa with chronic incisional drainage and edema noted with recent Serratia culture per Dr. Ambriz, patient director volunteer services with initiation of cefepime and continued antibiotic therapy plan with dialysis with Dr. Sheth consultation with agreement of continued interventions with unremarkable right upper extremity venous Doppler. Upon admission, patient medications brought in per family with notable regimen and nearly 1000 narcotic tablets in addition to notably benzodiazepine regimens. Per patient permission witnessed per other nursing staff medications were appropriately wasted and strong recommendation given current status for patient to discontinue benzodiazepine and narcotic usage which had been advised prior per her director volunteer services. During admission MRI brain obtained with no acute infarction or hemorrhage. Urine drug screen despite patient notable narcotic and benzodiazepine from home negative with a negative blood alcohol level. LFTs and ammonia were also obtained and this was unremarkable. Patient clinically improved and orientation normalized which is similar to prior admissions. Patient reevaluated per nephrology, dialysis performed on day of discharge and recommendation for discharge to home with plan continued cefepime IV antibiotic therapy with dialysis which was amenable per Dr. Sheth. Recommendation the patient made for reevaluation per her vascular surgeon in [place] within the next 2-[address] Sheth recommendation with continued telemetry dressing care. She discharged to home in improved stable condition with additionally recommended follow-up with primary care physician. DAY OF DISCHARGE PROGRESS NOTE: Subjective: Patient without acute event overnight per self and nursing report. Patient denies fever, chills, nausea, emesis, abdominal pain, chest pain or dyspnea. Patient orientation at baseline, discussed current status likely due to narcolepsy as well as possible accidental overdose given her intermittent usage of narcotics and benzodiazepines. Patient agreeable to discharge to home. Patient will be discharged with follow- up with primary care physician within 3-5 days in addition to her director volunteer services for ongoing dialysis with additionally ongoing IV cefepime given recent Serratia noted on culture approximately 1 week prior to presentation in addition to encouragement to follow-up with vascular surgery in [place]. Objective: T 98.7, heart rate 87, BP 133/76, respiratory rate 17, 100% on room air. Physical Examination: General: awake, alert, oriented x 3 and cooperative, seated upright in the bedside chair, NAD. Skin: normal color, turgor, no icterus, cyanosis except notable right antecubital fossa incision, mildly mottled, serous drainage noted only, edematous to the region although improved since initial presentation and patient elevating upon evaluation, mildly tender palpation. HEENT: AT/NC, EOMI, PERRLA, MMM. Lungs: CTA bilaterally, moderate effort, mild decrease BL bases, no rales, ronchi or wheezing; Heart: Regular rate and rhythm; no gallop, rub audible. Abdomen: soft, NTTP, ND, normal BS. Extremities: no cyanosis, clubbing, see skin. Neurological: patient awake, alert, oriented x 3; cognitive function appears intact upon questioning,; pupils equally reactive to light and accomodation; cranial nerves II-XII grossly normal, moving all 4 extremities, strength improved, moderately globally decreased. Psychiatric: affect appears normal, no acute evidence of depressive or anxiety feelings. Assessment and Plan: Please see hospital summary above. Patient Problems: Active and Suspected Problems (Last Reviewed 08/14/18 @ 10:39 by Cesar Sheth MD) Extremity edema (Acute) Encephalopathy acute (Acute) - Physical Exam Vital Signs Temp Pulse Resp BP Pulse Ox 97.9 F 93 17 130/75 H 96 08/15/18 08:55 08/15/18 10:58 08/15/18 08:55 08/15/18 08:55 08/15/18 08:55 Oxygen Flow Rate (L/min) 2 Oxygen Delivery Method Room Air Weight: 156 lb 1.396 oz Body Mass Index (BMI) 28.7 Finger Stick Blood Glucose 155 Intake and Output for Last 24 Hours Intake Total 1235 / 1235 800 / 800 480 / 480 Output Total 1100 / 1100 Balance 135 / 135 800 / 800 480 / 480 Microbiology Past 72 Hours 08/12/18 16:00 Blood Culture - Preliminary Blood Culture (Wb) - Neck No growth in 48 hours. 08/12/18 16:00 Blood Culture - Preliminary Laboratory Tests Past 24 Hrs Phosphorus 6.1 H POC Glucose POC Glucose 108 80 161 H POC Glucose 110 Discharge Activity: - - Advise parameters including no driving given history of narcolepsy, fall precautions, use assist devices as needed. Weight Bearing Status: Weight bearing as tolerated Keep extremity elevated above heart level: Right Arm Call your doctor if your incision/area has: Continuous Slow Oozing, Sudden Increased Bleeding, Increased Pain/ Swelling, Increased Redness, Foul Smelling Discharge, Swelling at the incision site Call your doctor if you observe: Fever of 101 or Higher, Inability to urinate, Inability to have a bowel movement, Shortness of breath, Dizziness, Fainting spells, Chest pain, Uncontrolled pain Change Dressing in (Days):: 1 Remove Dressing in (days):: 1 Cleanse incision/area with: Soap AND Water Additional Dressing/Incision Instructions:: Please given region clean and dry, may wash, pat dry following, elevated above heart when seated and in bed, otherwise may place dry dressing daily and replace if needed. Home Medications: Medications to take at Discharge Duloxetine Hcl [Cymbalta] 120 mg PO DAILY 10/01/16 Hydroxychloroquine [Plaquenil] 200 mg PO BIDCM 10/01/16 Linagliptin [Tradjenta] 5 mg PO DAILY 10/01/16 metoprolol tartrate 25 mg tablet 25 mg PO BID 01/11/18 Atorvastatin Calcium [Lipitor] 20 mg PO QHS 01/20/18 famotidine 40 mg tablet 40 mg PO DAILY 05/12/18 Ferrous Sulfate 325 mg PO DAILY 08/12/18 Prednisone 5 mg PO DAILY 08/12/18 Pregabalin [Lyrica] 75 mg PO BID 08/12/18 Sevelamer Carbonate [Renvela] 3,200 mg PO TIDCM 08/12/18 Calcitriol [Rocaltrol] 0.25 mcg PO MOWEFR 08/13/18 Dextroamphetamine Sulfate [Dexedrine] 20 mg PO DAILY 08/13/18 Dextroamphetamine/Amphetamine [Adderall 15 mg Tablet] 15 mg PO DINNER 08/13/18 Dextroamphetamine/Amphetamine [Adderall 15 mg Tablet] 30 mg PO BREAKFAST 08/13/18 B Complex W-C No.20/Folic Acid [Virt-Caps Softgel] 1 mg PO DAILY 08/15/18 Baclofen 10 mg PO TID PRN PRN 08/15/18 Cefepime HCl [Maxipime] 1 gm IV Q24H vial 08/15/18 Ergocalciferol (Vitamin D2) [Drisdol] 50,000 unit PO QMONTH 08/15/18 Renal Oral Capsule 1 mg PO DAILY 08/15/18 Primary Care Physician: Mitchell Womack Chi, MD [Primary Care Provider] - Please follow up with your Primary Care Physician in: Follow- up within 1-2 days following discharge. Please Follow Up With: Arline Ambriz DO When: Follow-up as arranged for HD. Please Follow Up With: [facility] Vascular Surgeon When: Follow-up with your vascular surgeon within 2-3 weeks. Patient Instructions: Recognizing and Treating Wound Infection, ED Overdose Accidental Disposition: Home with Home Health Minutes spent on discharge:: 35 Patient Condition:: Stable Medical Necessity - Tobacco Use Smoking Status: Unknown if ever smoked Meaningful Use Info Meaningful Use Diagnoses (Choose all that apply): None applicable Code Visit Inpatient E AND M: 31499 Disch Hosp 08/15/18 0010 <Electronically signed by Yokasta Burgos > Date Yokasta Lyleignhuy Signature (if applicable): Date CC: Yokasta Burgos; Mitchell Womack MD Signed VENOUS DUPLEX UPPER Observed: 08/15/2018 Status: F Source: [place] EXTREMITY 5:13 PM [facility] [place] [facility] Cardiovascular Services [address] [place] [address] Venous Duplex US, Unilateral 08/15/18 0856 MR#: [id number] Acct: [id number] Name: PAVITHRA PAINTER Rep #: [id number] : 1970 47 From: Rigo Valverde MD Attending Dr: Yokasta Burgos Status: ADM IN Ordering Dr: Lele Garcia MD Date: 08/14/18 Location: [facility] Sex: F A Admitted: 08/12/18 Reason For Study: RUE swelling Right Proximal Jugular vein not imaged due to dialysis access placement. Short segment of Subclavian imaged with color and doppler. Right Lower Arm Right radial vein is compressible. Right ulnar vein is compressible. Right Arm Right axillary vein is spontaneous, patent, phasic, competent, compressible and demonstrates augmentation. Right brachial vein is compressible. Right cephalic vein is compressible. Right basilic vein is compressible. Interpretation Summary No evidence for acute deep venous thrombosis[right] upper extremity with patent and compressible cephalic and basilic veins. Ordering Physician: Lele Garcia Referring Physician: Mitchell Womack Chi Performed By: Abigail Ventura RVT ? 08/15/181711 Date Rigo Valverde MD CC: Yokasta Burgos; Lele Garcia; Mitchell Womack MD Date Dictated: 08/15/1856 Date Transcribed: 08/15/181711 Electric Tripper Machine Operator: Signed DISCHARGE INSTRUCTION Observed: 08/15/2018 Status: F Source: [place] 12:53 PM [facility] [place] [facility] Medical Records Department [address] [place] [address] Instructions for Home/Discharge Instructions 08/15/18 1236 MR#: [id number] Acct: [id number] Name: PAVITHRA PAINTER Rep #: [id number] : 1970 47 From: Yokasta Burgos PCP: Mitchell Womack MD, Chi Status: ADM IN - Discharge Diagnoses Current Active Problems: Current Active and Chronic Problems (Last Reviewed 08/14/18 @ 10:39 by Cesar Sheth MD) (1) Acute Encephalopathy, Suspected Multifactorial, Secondary to Narcolepsy and Polypharmacy (2) RUE Recently Infected Serratia Dialysis Access Wound (Plan IV cefepime at HD per discussion w/ nephrology) (3) ESRD on HD (4) Diabetes mellitus type II (5) SLE/Lupus Nephritis (6) HTN (7) AOCD/Fe deficiency anemia You will use the following diet at home:: Calorie/Carbohydrate Controlled (specify 1200, 1400, etc) - 1800 ADA/cardiac/renal diet recommended., Cardiac, Renal (restricted protein/sodium) Your food should be the consistency of: Regular Your liquids should be the consistency of: Regular/Thin Discharge Activity: - - Advise parameters including no driving given history of narcolepsy, fall precautions, use assist devices as needed. Weight Bearing Status: Weight bearing as tolerated Keep extremity elevated above heart level: Right Arm Call your doctor if your incision/area has: Continuous Slow Oozing, Sudden Increased Bleeding, Increased Pain/ Swelling, Increased Redness, Foul Smelling Discharge, Swelling at the incision site Call your doctor if you observe: Fever of 101 or Higher, Inability to urinate, Inability to have a bowel movement, Shortness of breath, Dizziness, Fainting spells, Chest pain, Uncontrolled pain Change Dressing in (Days):: 1 Remove Dressing in (days):: 1 Cleanse incision/area with: Soap AND Water Additional Dressing/Incision Instructions:: Please given region clean and dry, may wash, pat dry following, elevated above heart when seated and in bed, otherwise may place dry dressing daily and replace if needed. Instructions: Recognizing and Treating Wound Infection, ED Overdose Accidental Additional Instructions: Given your underlying disease history, we strongly advise you to avoid both narcotics and benzodiazepine medications as when taken these will lead to sedation. You will continue to have IV cefepime following dialysis for recently diagnosed serriatia right upper extremity infection which will be arranged by Dr. Arline Ambriz per discussions with her while you were inpatient. Allergies/Adverse Reactions: Allergies NEGRO Inhibitors Allergy (Verified 08/07/18 22:06) Angioedema lisinopril Allergy (Verified 08/07/18 22:06) Angioedema Sulfa (Sulfonamide Antibiotics) Allergy (Verified 08/07/18 22:06) Rash sulfamethoxazole [From Bactrim] Allergy (Verified 08/07/18 22:06) Rash trimethoprim [From Bactrim] Allergy (Verified 08/07/18 22:06) Rash Angioderm Adverse Reaction (Unknown, Uncoded 07/27/18 11:40) Unknown Medications to take at Discharge Duloxetine Hcl [Cymbalta] 120 mg PO DAILY 10/01/16 Hydroxychloroquine [Plaquenil] 200 mg PO BIDCM 10/01/16 Linagliptin [Tradjenta] 5 mg PO DAILY 10/01/16 metoprolol tartrate 25 mg tablet 25 mg PO BID 01/11/18 Atorvastatin Calcium [Lipitor] 20 mg PO QHS 01/20/18 Baclofen [Lioresal] 10 mg PO BREAKFAST 01/20/18 famotidine 40 mg tablet 40 mg PO DAILY 05/12/18 Ferrous Sulfate 325 mg PO DAILY 08/12/18 Prednisone 5 mg PO DAILY 08/12/18 Pregabalin [Lyrica] 75 mg PO BID 08/12/18 Sevelamer Carbonate [Renvela] 4,800 mg PO TIDCM 08/12/18 Baclofen 20 mg PO DINNER 08/13/18 Calcitriol [Rocaltrol] 0.25 mcg PO 08/13/18 Dextroamphetamine Sulfate [Dexedrine] 20 mg PO DAILY 08/13/18 Dextroamphetamine/Amphetamine [Adderall 15 mg Tablet] 15 mg PO DINNER 08/13/18 Dextroamphetamine/Amphetamine [Adderall 15 mg Tablet] 30 mg PO BREAKFAST 08/13/18 Cefepime HCl [Maxipime] 1 gm IV Q24H vial 08/15/18 Primary Care Physician: Mitchell Womack Chi, MD [Primary Care Provider] - Please follow up with your Primary Care Physician in: Follow- up within 1-2 days following discharge. Test Results: Test results from this visit will be discussed in further detail at your follow-up appointment, if applicable. Please Follow Up With: Arline Ambriz DO When: Follow-up as arranged for HD. Please Follow Up With: [place] Vascular Surgeon When: Follow-up with your vascular surgeon within 2-3 weeks. Proposed Discharge Date: 08/15/18 08/15/18 1253 <Electronically signed by Yokasta Burgos > Date Yokasta Burgos CC: Arline Ambriz DO; Cesar Sheth MD; Mitchell Womack MD BEDSIDE GLUCOSE Collected: 08/15/2018 Status: F Source: [place] 11:23 AM [facility] [place] [facility] TYPE CODE TESTS RESULT OUT OF RANGE REFERENCE UNITS LAB L501.080 70-110 mg/dL Normal BEDSIDE GLU 108 Result Comment: MANAGEMENT OF PATIENT CARE PER NURSING PROTOCOL Performed By: #### L501.080 #### Laboratory Point of Care [address] [place], [place] [id number] BEDSIDE GLUCOSE Collected: 08/15/2018 Status: F Source: [place] 6:48 AM [facility] [place] [facility] TYPE CODE TESTS RESULT OUT OF RANGE REFERENCE UNITS LAB L501.080 70-110 mg/dL Normal BEDSIDE GLU 80 Result Comment: MANAGEMENT OF PATIENT CARE PER NURSING PROTOCOL Performed By: #### L501.080 #### Laboratory Point of Care [address] [place] [address] BEDSIDE GLUCOSE Collected: 08/14/2018 Status: F Source: [place] 9:04 PM [facility] [place] [facility] TYPE CODE TESTS RESULT OUT OF REFERENCE UNITS RANGE LAB L501.080 70-110 mg/dL High BEDSIDE GLU 161 Result Comment: MANAGEMENT OF PATIENT CARE PER NURSING PROTOCOL Performed By: #### L501.080 #### Laboratory Point of Care [address] [place] [address] BEDSIDE GLUCOSE Collected: 08/14/2018 Status: F Source: [place] 4:26 PM [place] [facility] REPOSITORY TYPE CODE TESTS RESULT OUT OF RANGE REFERENCE UNITS LAB L501.080 70-110 mg/dL Normal BEDSIDE GLU 110 Result Comment: MANAGEMENT OF PATIENT CARE PER NURSING PROTOCOL Performed By: #### L501.080 #### Laboratory Point of Care [address] [place] [address] BEDSIDE GLUCOSE Collected: 08/14/2018 Status: F Source: [place] 12:24 PM [facility] TYPE CODE TESTS RESULT OUT OF RANGE REFERENCE UNITS LAB L501.080 70-110 mg/dL Normal BEDSIDE GLU 80 Result Comment: MANAGEMENT OF PATIENT CARE PER NURSING PROTOCOL Performed By: #### L501.080 #### Laboratory Point of Care [address] [place] [address] CONSULTATION Observed: 08/14/2018 Status: F Source: [place] 10:43 AM [facility] REPOSIT[facility] Medical Records Department [address] [place] [address] Consultation 08/14/18 1034 MR#: [id number] Acct: [id number] Name: PAVITHRA PAINTER Rep #: [id number] : 1970 47 From: Cesar Sheth MD PCP: Vu GARCIA,Mitchell Yadav Status: ADM IN Y Location: [address] Problem List (1) End stage renal disease Status: Chronic (2) Extremity edema Status: Acute Reason for Consult Date of Consultation: 08/14/18 History of Present Illness: The patient is a 47 year old F brought in by family for change in mental status. Patient was brought in by family who abruptly left patient was found down and brought in. Patient underwent a workup including CT of the head and neck which were unremarkable. Patient continued to be encephalopathic. Patient unable to provide any history. Drug screen was negative in the emergency room but patient does receive a prescription for lorazepam, last prescription was filled on July 12. Patient be admitted for further stabilization and encephalopathy. Back in February I placed a right IJ tunneled dialysis catheter. She subsequently had a fistula developed in [place] in her right antecubital fossa. It is not completely healed and it is been about 3 weeks. She still has some slight drainage from the wound. The cultures are still pending. She subsequently underwent a CAT scan of her right upper extremity. Findings: There is incomplete visualization of pocket of gas formation in and around the age-indeterminate right-sided IJ in the chest recommend dedicated CT scan of the chest if possible obtaining CT scan of the chest and right upper extremity. Consider recent postoperative change and/or infection which is partially visualized on this study. An ultrasound is suggested to evaluate for deep venous thrombosis given that the edema appears to extend from the right chest to the wrist. Additionally there is a pocket of fluid in the antecubital fossa near surgical clips which may represent a focal abscess and/or evolving hematoma in the appropriate clinical setting recommend ultrasound for further evaluation. She is not complaining of any pain in her upper extremity. She is complaining of swelling in both the right and left hand but greater in the right hand and right arm area. Past Medical History Past Medical History (Chronic Problems): Chronic Problems (Last Updated 08/13/18 @ 13:59 by Lele Garcia MD) Nonrheumatic mitral (valve) insufficiency (Chronic) Secondary pulmonary arterial hypertension (Chronic) Non-rheumatic tricuspid valve insufficiency (Chronic) End stage renal disease (Chronic) Chronic anemia (Chronic) Hypertension (Chronic) Narcolepsy (Chronic) Lupus nephritis (Chronic) Status post kidney and liver biopsy (fatty liver) Degenerative disc disease, cervical (Chronic) Cervical spondylosis (Chronic) Diabetes mellitus, type II (Chronic) SLE (systemic lupus erythematosus) (Chronic) Medical History: Medical History (Last Reviewed 08/14/18 @ 10:39 by Cesar Sheth MD) Nonrheumatic mitral (valve) insufficiency (Chronic) I34.0 Secondary pulmonary arterial hypertension (Chronic) I27.21 Non-rheumatic tricuspid valve insufficiency (Chronic) I36.1 End stage renal disease (Chronic) N18.6 Chronic anemia (Chronic) D64.9 Hypertension (Chronic) I10 Narcolepsy (Chronic) G47.419 Lupus nephritis (Chronic) M32.14 Status post kidney and liver biopsy (fatty liver) Degenerative disc disease, cervical (Chronic) M50.30 Cervical spondylosis (Chronic) M47.812 Diabetes mellitus, type II (Chronic) E11.9 SLE (systemic lupus erythematosus) (Chronic) M32.9 Allergies NEGRO Inhibitors Allergy (Verified 08/07/18 22:06) Angioedema lisinopril Allergy (Verified 08/07/18 22:06) Angioedema Sulfa (Sulfonamide Antibiotics) Allergy (Verified 08/07/18 22:06) Rash sulfamethoxazole [From Bactrim] Allergy (Verified 08/07/18 22:06) Rash trimethoprim [From Bactrim] Allergy (Verified 08/07/18 22:06) Rash Angioderm Adverse Reaction (Unknown, Uncoded 07/27/18 11:40) Unknown Home Medications: Ambulatory Orders Medication Instructions Recorded Duloxetine Hcl [Cymbalta] 120 mg PO DAILY 10/01/16 Hydroxychloroquine [Plaquenil] 200 mg PO BIDCM 10/01/16 Surgical History: Surgical History (Last Reviewed 08/14/18 @ 10:39 by Cesar Sheth MD) History of esophagogastroduodenoscopy (EGD) Z98.890 Presence of surgically created arteriovenous shunt for hemodialysis Onset Date: 11/2017 Z99.2 S/P colonoscopy Z98.890 S/P lymph node biopsy Z98.890 S/P nasal polypectomy Z98.890 Status post carpal tunnel release Z98.890 Status post insertion of dialysis catheter Z95.828, Z99.2 Status post total hip replacement, bilateral Z96.643 port removed Surgical History: - Smoking Status: Unknown if ever smoked - *Family History Maternal Family History: Family History (Last Reviewed 08/12/18 @ 18:36 by Cami Sanchez DO) Mother Hypertension Kidney disease ALS (amyotrophic lateral sclerosis) Father Heart disease Hypertension Kidney disease Diabetes History Items: Diabetes, High Cholesterol, Heart Disease, Hypertension, Renal Disease, - Paternal Family History: Family History (Last Reviewed 08/12/18 @ 18:36 by Cami Sanchez DO) Mother Hypertension Kidney disease ALS (amyotrophic lateral sclerosis) Father Heart disease Hypertension Kidney disease Diabetes History Items: Diabetes, High Cholesterol, Heart Disease, Hypertension, Renal Disease Sibling Family History: Family History (Last Reviewed 08/12/18 @ 18:36 by Cami Sanchez DO) Mother Hypertension Kidney disease ALS (amyotrophic lateral sclerosis) Father Heart disease Hypertension Kidney disease Diabetes History Items: Diabetes Review of Systems Constitutional: Reports: - - Patient presented with mental status changes which she currently feels she has normal mentation. Cardiovascular: Denies: Chest Pain, Chest Pressure, Chest Tightness, Palpitations Respiratory: Denies: Cough, Hemoptysis, Shortness of breath at rest, Shortness of breath upon exertion, Wheezing Musculoskeletal: Reports: - - She is complaining of swelling within the right arm itself as well as bilateral swelling in hands. Denies: Neck Pain, Shoulder Pain Patient Problems: Active and Suspected Problems (Last Updated 08/13/18 @ 13:59 by Lele Garcia MD) Extremity edema (Acute) Encephalopathy acute (Acute) - Physical Exam General: Alert, Oriented x3 Lungs: Clear to auscultation Cardiovascular: Regular rate, Regular Rhythm, No murmurs Extremities: - - Patient has an excellent thrill and the newly created right antecubital AV fistula. There is no signs of cellulitis there is no tenderness to touch there is no crepitus going up into her arm. There is no tenderness around the tunneled dialysis catheter site. Vital Signs Temp Pulse Resp BP Pulse Ox 97.8 F 98 18 131/68 H 98 08/14/18 10:10 08/14/18 10:19 08/14/18 10:10 08/14/18 10:10 08/14/18 10:10 Oxygen Flow Rate (L/min) 2 Oxygen Delivery Method Room Air Weight: 156 lb 1.396 oz Body Mass Index (BMI) 28.7 Finger Stick Blood Glucose 155 Intake and Output for Last 24 Hours Intake Total 1235 / 1235 360 / 360 Output Total 1100 / 1100 Balance 135 / 135 360 / 360 Laboratory Tests Past 24 Hrs WBC RBC Hgb Hct MCV MCH MCHC RDW WBC 7.6 RBC 3.18 L Hgb 9.7 L Hct 31.7 L MCV 99.7 H MCH 30.5 MCHC 30.6 L RDW 16.6 H RDW Differential 60.0 H WBC RBC POC Glucose POC Glucose 138 H 106 144 H POC Glucose 122 H 102 78 POC Glucose 80 Assessment/Plan All Active Problems (Last Updated 08/13/18 @ 13:59 by Lele Garcia MD) Extremity edema (Acute) Encephalopathy acute (Acute) At this point I discussed the case with the hospitalist we are going to obtain the appropriate images requested and suggested by the radiologist to read the CT scan of the upper extremity. At this point I do not think that there is any sites that we need to drain or open and we can appropriately wait until these tests are completed. 08/14/18 1043 <Electronically signed by Cesar Sheth MD> Date Cesar Sheth MD Cosigner Signature (if applicable): Date CC: Arline Ambriz DO; Cesar Sheth MD; Mitchell Womack MD Signed BEDSIDE GLUCOSE Collected: 08/14/2018 Status: F Source: [place] 6:50 AM [facility] TYPE CODE TESTS RESULT OUT OF REFERENCE UNITS RANGE LAB L501.080 70-110 mg/dL High BEDSIDE GLU 138 Result Comment: MANAGEMENT OF PATIENT CARE PER NURSING PROTOCOL Performed By: #### L501.080 #### Laboratory [place] [place] [address] CBC W/DIFF, AUTOMATED Collected: 08/14/2018 Status: F Source: [place] 6:12 AM [facility]POS[facility]ORY TYPE CODE TESTS RESULT OUT OF RANGE REFERENCE UNITS LAB L100.1000 4.4-11.0 K/mm3 Normal WBC 7.6 LAB L100.1200 4.2-5.4 M/mm3 Low RBC 3.18 LAB L100.1300 12.0-15.0 g/dl Low HGB 9.7 LAB L100.1400 37-47 % Low HCT 31.7 LAB L100.1500 81-99 fL High MCV 99.7 LAB L100.1600 27.0-32.0 pg Normal MCH 30.5 LAB L100.1700 32-36 g/gl Low MCHC 30.6 LAB L100.1810 11.6-14.6 % High RDW CV 16.6 LAB L100.1820 35.1-43.9 fl High RDW SD 60.0 LAB L100.1900 150-450 K/mm3 Normal PLT 168 LAB L100.2000 6.2-12.0 fl Normal MPV 9.6 LAB L100.2100 47-70 % Normal NEUT% 58.9 LAB L100.2200 19-41 % Normal LY% 28.4 LAB L100.2300 0-10 % High MONO% 10.3 LAB L100.2400 0-5 % Normal EO% 2.0 LAB L100.2500 0-1 % Normal BASO% 0.0 LAB L100.2550 0.0-0.9 % Normal IM GRAN % 0.400 Result Comment: IG% - Immature Granulocytes (promyelocytes, myelocytes and metamyelocytes) > 1% indicates that a LEFT SHIFT is Present. LAB L100.2620 2.0-7.7 X10 3/uL Normal Absolute Neut 4.5 LAB L100.2720 0.83-4.51 X10 3/ul Normal Absolute Lymph 2.15 Performed By: #### L100.0100 #### [facility] [address] [place], [address] COMPREHENSIVE METABOLIC Collected: 08/14/2018 Status: F Source: [facility] 6:12 AM [facility]POS[facility] TYPE CODE TESTS RESULT OUT OF RANGE REFERENCE UNITS LAB L501.0100 74-106 mg/dL Normal GLU 80 Result Comment: Please note revised GLUCOSE reference range effective 2017. LAB L501.1000 7-18 mg/dL High BUN 41 LAB L501.1100 0.55-1.02 mg/dL High CREAT,SERUM 6.81 Result Comment: The validity of the calculated GFR AND GFRAA in patients over 70 years has not been determined. Clinical correlation is essential. LAB L501.1110 >60 mL/min Low EST GFR 7 Result Comment: Non- GFR Calc LAB L501.1115 >60 mL/min Low EST GFR - AA 8 Result Comment: GFR Calc LAB L501.1255 ml/min Normal Estimated CRCL 7.87 LAB L501.1300 10-20 RATIO Low BUN/CRE 6.0 LAB L501.1500 6.4-8.2 g/dL Normal T PROT 6.8 LAB L501.1800 3.2-5.0 g/dL Low ALB 2.5 LAB L501.1950 2.2-4.2 g/dL High GLOB 4.3 LAB L501.2000 0.9-2.4 RATIO Low A/G 0.6 LAB L501.2200 8.5-10. mg/dL Normal 1 CA 8.8 LAB L501.4100 15-37 U/L Normal AST 34 LAB L501.4305 45-117 U/L Normal ALK P 72 LAB L501.4405 13-56 U/L Low ALT 8 LAB L501.4600 0.20-1. mg/dL Normal 00 T BILI 0.50 LAB L501.5300 136-145 mmol/L Normal NA 137 LAB L501.5600 3.5-5.1 mmol/L Normal K 4.2 LAB L501.5900 98-107 mmol/L Normal CL 101 LAB L501.6100 21.0-32 mmol/L Normal .0 CO2 25.0 LAB L501.6200 5-15 Normal GAP 11 Performed By: #### L500.4050 #### Laboratory [address] [facility]. [place], [place], [address] PHOSPHORUS Collected: 08/14/2018 Status: F Source: [place] 6:12 AM [facility] Order Comment: Comments: add to todays lab TYPE CODE TESTS RESULT OUT OF RANGE REFERENCE UNITS LAB L501.2300 2.5-4.9 mg/dL High PHOS 6.1 Performed By: #### L501.2300 #### Laboratory [address] [place], [place], [address] BEDSIDE GLUCOSE Collected: 08/13/2018 Status: F Source: [place] 9:18 PM [facility]POS[facility] TYPE CODE TESTS RESULT OUT OF RANGE REFERENCE UNITS LAB L501.080 70-110 mg/dL Normal BEDSIDE GLU 106 Result Comment: MANAGEMENT OF PATIENT CARE PER NURSING PROTOCOL Performed By: #### L501.080 #### Laboratory Point of Care [address] [place], [place] [id number] BEDSIDE GLUCOSE Collected: 08/13/2018 Status: F Source: [place] 2:38 PM [facility]POS[facility] TYPE CODE TESTS RESULT OUT OF REFERENCE UNITS RANGE LAB L501.080 70-110 mg/dL High BEDSIDE GLU 144 Result Comment: MANAGEMENT OF PATIENT CARE PER NURSING PROTOCOL Performed By: #### L501.080 #### Laboratory Point of Care [address] [place], [place] [address] BEDSIDE GLUCOSE Collected: 08/13/2018 Status: F Source: [place] 12:05 PM [facility]POS[facility] TYPE CODE TESTS RESULT OUT OF REFERENCE UNITS RANGE LAB L501.080 70-110 mg/dL High BEDSIDE GLU 122 Result Comment: MANAGEMENT OF PATIENT CARE PER NURSING PROTOCOL Performed By: #### L501.080 #### Laboratory Point of Care [address] [place], [place] [address] ALCOHOL, BLOOD Collected: 08/13/2018 Status: F Source: [place] (MEDICAL)-SERUM 10:30 AM [facility]POS[facility] TYPE CODE TESTS RESULT OUT OF RANGE REFERENCE UNITS LAB L501.9100 mg/dL Normal SERUM 3.0 ETOH Result Comment: The serum:whole blood ethanol ratio is approximately 1.14 and varies slightly with hematocrit. Medical Alcohol reference interval and critical value in non-tolerant individuals; 50 - 100 Impairment 100 Intoxication 100 - 250 Severe Poisoning 250 - 400 Deep/possible fatal coma Performed By: #### L501.9100 #### Laboratory [address] [facility] [address] [place], [place], [address] SALICYLATE Collected: 08/13/2018 Status: F Source: [place] 10:30 AM [facility] TYPE CODE TESTS RESULT OUT OF REFERENCE UNITS RANGE LAB L501.8300 2.8-20.0 mg/dL Low SALICYLATE < 1.7 Performed By: #### L501.8300 #### Laboratory [address] [place], [address] CORTISOL SERUM Collected: 08/13/2018 Status: F Source: [place] 10:30 AM [facility] Order Comment: BASELINE OR POST MEDICATION STIMULATION?: Baseline TYPE CODE TESTS RESULT OUT OF REFERENCE UNITS RANGE LAB L509.6000 3.09-22.40 ug/dL High CORTISOL 27.70 Result Comment: Adult (AM) 4.30 - 22.40 ug/dL Adult (PM) 3.09 - 16.66 ug/dL Performed By: #### L509.6000 #### Laboratory [address] [place], [address] EXTREMITY UPPER Observed: 08/13/2018 Status: F Source: [place] WITHOUT CONTRA 9:59 AM [facility] Imaging Services [address] [place] [address] Extremity Upper without Contra MR#: [id number] Acct: [id number] Name: PAVITHRA PAINTER Rep #: [id number] : 1970 F 47 From: Carolina Becker MD PCP: Vu GARCIA,Mitchell Yadav Status: ADM IN Study: Extremity Upper without Contra Date of Exam: 08/13/18 Exam# [id number] Ordering Dr: Lele Garcia MD STUDY: ABNORMAL INFECTED WOUND DRAINAGE RIGHT REASON FOR EXAM: Female, 47 years old. RADIATION DOSAGE (If Supplied By Facility): CTDIvol = ( 24.72 ) mGy, DLP = ( 1230.91 ) mGycm. Individualized dose optimization techniques were used for this CT.? TECHNIQUE: Axial images of the right upper extremity were obtained from the right shoulder joint to the wrist. No contrast was administered. This limits the study for evaluation for infection. Sagittal coronal reformatted images are performed. COMPARISON: None. FINDINGS: Within the right chest there is significant edema of the right chest wall and edema in gas in a focal pocket adjacent to the right side internal jugular vein line partially visualized on this study and unclear as to the age of the line. There is edema of the right upper extremity from the right chest wall into the axilla. There is additional right lower extremity edema from the periphery of the triceps muscles to the wrist. There is visualized edema especially in the posterior aspect of the elbow. There surgical clips demonstrated in the soft tissues of the elbow on the lateral side. There are diffuse areas of edema. An antecubital fossa there is a small focus of fluid which is fairly superficial measuring 2.7 x 1.2 cm image #84 which would be readily evaluated with ultrasound. Is mild degenerative change in the elbow joint. There is no visualized fracture. CT/Extremity Upper without Contra IMPRESSION: There is incomplete visualization of pocket of gas formation in and around the age-indeterminate right-sided IJ in the chest recommend dedicated CT scan of the chest if possible obtaining CT scan of the chest and right upper extremity. Consider recent postoperative change and/or infection which is partially visualized on this study. An ultrasound is suggested to evaluate for deep venous thrombosis given that the edema appears to extend from the right chest to the wrist. Additionally there is a pocket of fluid in the antecubital fossa near surgical clips which may represent a focal abscess and/or evolving hematoma in the appropriate clinical setting recommend ultrasound for further evaluation. Electronically Signed: Carolina Becker MD at 17:52 EST Tel , Service support , CC: Lele Garcia; Mitchell Womack MD Electric Tripper Machine Operator: Signed MRSA WOUND DNA BY Collected: 08/13/2018 Status: F Source: [place] PCR 9:24 AM [facility] Order Comment: Comments: Right elbow Specimen Source? right elbow wound TYPE CODE TESTS RESULT OUT OF RANGE REFERENCE UNITS LAB L8200.1100 Negative Normal MRSA Negative RESULT LAB L8200.1150 Negative Normal SA RESULT NEGATIVE Performed By: #### L8200.1075 #### [place], [address] Observed: 08/13/2018 Status: F Source: [place] CULTURE, DEEP WOUND 9:24 AM [facility] RE[facility]ITORY Comments: From the right elbow wound Gram Stain Gram Stain No organisms seen Wound Culture No growth aerobically. Cult, Anaerobic No anaerobic bacteria isolated. Performed By: #### M100.1500 #### Laboratory [address] [place], [address] BEDSIDE GLUCOSE Collected: 08/13/2018 Status: F Source: [place] 8:08 AM [facility] TYPE CODE TESTS RESULT OUT OF REFERENCE UNITS RANGE LAB L501.080 70-110 mg/dL High BEDSIDE GLU 121 Result Comment: MANAGEMENT OF PATIENT CARE PER NURSING PROTOCOL Performed By: #### L501.080 #### Laboratory Point of Care [address] [place] [address] BEDSIDE GLUCOSE Collected: 08/13/2018 Status: F Source: [place] 7:02 AM [facility] TYPE CODE TESTS RESULT OUT OF RANGE REFERENCE UNITS LAB L501.080 70-110 mg/dL Normal BEDSIDE GLU 102 Result Comment: MANAGEMENT OF PATIENT CARE PER NURSING PROTOCOL Performed By: #### L501.080 #### Laboratory Point of Care [address] [place] [address] BEDSIDE GLUCOSE Collected: 08/13/2018 Status: F Source: [place] 6:06 AM [facility] TYPE CODE TESTS RESULT OUT OF RANGE REFERENCE UNITS LAB L501.080 70-110 mg/dL Normal BEDSIDE GLU 78 Result Comment: MANAGEMENT OF PATIENT CARE PER NURSING PROTOCOL Performed By: #### L501.080 #### Laboratory Point of Care [address] [facility] [place] [address] CBC W/DIFF, AUTOMATED Collected: 08/13/2018 Status: F Source: [place] 6:02 AM [facility] TYPE CODE TESTS RESULT OUT OF RANGE REFERENCE UNITS LAB L100.1000 4.4-11.0 K/mm3 Normal WBC 9.3 LAB L100.1200 4.2-5.4 M/mm3 Low RBC 3.47 LAB L100.1300 12.0-15.0 g/dl Low HGB 10.7 LAB L100.1400 37-47 % Low HCT 34.8 LAB L100.1500 81-99 fL High MCV 100.3 LAB L100.1600 27.0-32.0 pg Normal MCH 30.8 LAB L100.1700 32-36 g/gl Low MCHC 30.7 LAB L100.1810 11.6-14.6 % High RDW CV 16.4 LAB L100.1820 35.1-43.9 fl High RDW SD 59.4 LAB L100.1900 150-450 K/mm3 Normal PLT 205 LAB L100.2000 6.2-12.0 fl Normal MPV 9.5 LAB L100.2100 47-70 % High NEUT% 73.5 LAB L100.2200 19-41 % Low LY% 14.5 LAB L100.2300 0-10 % High MONO% 10.1 LAB L100.2400 0-5 % Normal EO% 1.7 LAB L100.2500 0-1 % Normal BASO% 0.0 LAB L100.2550 0.0-0.9 % Normal IM GRAN % 0.200 Result Comment: IG% - Immature Granulocytes (promyelocytes, myelocytes and metamyelocytes) > 1% indicates that a LEFT SHIFT is Present. LAB L100.2620 2.0-7.7 X10 3/uL Normal Absolute Neut 6.9 LAB L100.2720 0.83-4.51 X10 3/ul Normal Absolute Lymph 1.35 Performed By: #### L100.0100 #### [facility] [address] [facility] [place], [place], [address] BASIC METABOLIC Collected: 08/13/2018 Status: F Source: [place] PROFILE (BMP) 6:02 AM [facility] TYPE CODE TESTS RESULT OUT OF RANGE REFERENCE UNITS LAB L501.0100 74-106 mg/dL Normal GLU 96 Result Comment: Please note revised GLUCOSE reference range effective 2017. LAB L501.1000 7-18 mg/dL High BUN 59 LAB L501.1100 0.55-1.02 mg/dL High alert CREAT,SERUM 8.36 Result Comment: Critical Result(s) Called at: 07:43:05 08/13/2018 by: Oleg García to Misha ISLAS The validity of the calculated GFR AND GFRAA in patients over 70 years has not been determined. Clinical correlation is essential. LAB L501.1110 >60 mL/min Low EST GFR 6 Result Comment: Non- GFR Calc LAB L501.1115 >60 mL/min Low EST GFR - AA 7 Result Comment: GFR Calc LAB L501.1255 ml/min Normal Estimated CRCL 6.41 LAB L501.1300 10-20 RATIO Low BUN/CRE 7.1 LAB L501.2200 8.5-10. mg/dL Normal 1 CA 9.0 LAB L501.5300 136-145 mmol/L Normal NA 145 LAB L501.5600 3.5-5.1 mmol/L Normal K 4.7 LAB L501.5900 98-107 mmol/L High CL 110 LAB L501.6100 21.0-32 mmol/L Normal .0 CO2 24.0 LAB L501.6200 5-15 Normal GAP 11 Performed By: #### L500.2500 #### Laboratory [address] [facility]. [place], [place], [id number] LIVER PROFILE Collected: 08/13/2018 Status: F Source: [place] 6:01 AM [facility] Order Comment: Comments: From blood in the lab TYPE CODE TESTS RESULT OUT OF RANGE REFERENCE UNITS LAB L501.1500 6.4-8.2 g/dL Normal T PROT 7.5 LAB L501.1800 3.2-5.0 g/dL Low ALB 2.9 LAB L501.1950 2.2-4.2 g/dL High GLOB 4.6 LAB L501.4100 15-37 U/L Normal AST 35 LAB L501.4305 45-117 U/L Normal ALK P 81 LAB L501.4405 13-56 U/L Low ALT < 6 LAB L501.4600 0.20-1.00 mg/dL Normal T BILI 0.50 LAB L501.4700 0.00-0.30 mg/dL Normal D BILI 0.14 Performed By: #### L500.3400 #### Laboratory [address] [place], [place], [address] BEDSIDE GLUCOSE Collected: 08/13/2018 Status: F Source: [place] 5:22 AM [facility] TYPE CODE TESTS RESULT OUT OF RANGE REFERENCE UNITS LAB L501.080 70-110 mg/dL Normal BEDSIDE GLU 80 Result Comment: MANAGEMENT OF PATIENT CARE PER NURSING PROTOCOL Performed By: #### L501.080 #### Laboratory Point of Care [address] [place] [address] BEDSIDE GLUCOSE Collected: 08/13/2018 Status: F Source: [place] 4:01 AM [facility] TYPE CODE TESTS RESULT OUT OF RANGE REFERENCE UNITS LAB L501.080 70-110 mg/dL Normal BEDSIDE GLU 106 Result Comment: MANAGEMENT OF PATIENT CARE PER NURSING PROTOCOL Performed By: #### L501.080 #### Laboratory Point of Care [address] [place] [address] BEDSIDE GLUCOSE Collected: 08/13/2018 Status: F Source: [place] 3:00 AM [facility] TYPE CODE TESTS RESULT OUT OF RANGE REFERENCE UNITS LAB L501.080 70-110 mg/dL Normal BEDSIDE GLU 83 Result Comment: MANAGEMENT OF PATIENT CARE PER NURSING PROTOCOL Performed By: #### L501.080 #### Laboratory Point of Care [address] [place] [address] BEDSIDE GLUCOSE Collected: 08/13/2018 Status: F Source: [place] 2:01 AM [facility] TYPE CODE TESTS RESULT OUT OF REFERENCE UNITS RANGE LAB L501.080 70-110 mg/dL High BEDSIDE GLU 127 Result Comment: MANAGEMENT OF PATIENT CARE PER NURSING PROTOCOL Performed By: #### L501.080 #### Laboratory Point of Care [address] [place] [address] BEDSIDE GLUCOSE Collected: 08/13/2018 Status: F Source: [place] 1:10 AM [facility] TYPE CODE TESTS RESULT OUT OF RANGE REFERENCE UNITS LAB L501.080 70-110 mg/dL Normal BEDSIDE GLU 74 Result Comment: MANAGEMENT OF PATIENT CARE PER NURSING PROTOCOL Performed By: #### L501.080 #### Laboratory Point of Care [address] [place] [address] ABDOMEN SINGLE VIEW Observed: 08/13/2018 Status: F Source: [place] (PORTABLE) 12:20 AM [facility] [place] [facility] Imaging Services [address] [place] [address] Abdomen Single View (Portable) MR#: [id number] Acct: [id number] Name: PAVITHRA PAINTER Rep #: [id number] : 1970 F 47 From: Guillermo Karimi MD PCP: Vu GARCIA,Mitchell Yadav Status: ADM IN Study: Abdomen Single View (Portable) Date of Exam: 08/13/18 Exam# [id number] Ordering Dr: Garcia Mead MD STUDY: X-RAY - ABDOMEN/PELVIS REASON FOR EXAM: Female, 47 years old. NG tube placement TECHNIQUE: 1 view COMPARISON: None. FINDINGS: The tip of the nasogastric tube is in the stomach. A central line has its tip in the distal end of the superior vena cava. There is no bowel distention. Electronically Signed: Guillermo Karimi MD at 2:38 EST Tel , Service support , RAD/Abdomen Single View (Portable) CC: Garcia Mead MD; Mitchell Womack MD Electric Tripper Machine Operator: Signed BEDSIDE GLUCOSE Collected: 08/13/2018 Status: F Source: [place] 12:06 AM [facility] [place] [facility] TYPE CODE TESTS RESULT OUT OF RANGE REFERENCE UNITS LAB L501.080 70-110 mg/dL Normal BEDSIDE GLU 92 Result Comment: MANAGEMENT OF PATIENT CARE PER NURSING PROTOCOL Performed By: #### L501.080 #### Laboratory Point of Care [address] [place] [address] BEDSIDE GLUCOSE Collected: 08/12/2018 Status: F Source: [place] 11:08 PM [facility] TYPE CODE TESTS RESULT OUT OF RANGE REFERENCE UNITS LAB L501.080 70-110 mg/dL Normal BEDSIDE GLU 104 Result Comment: MANAGEMENT OF PATIENT CARE PER NURSING PROTOCOL Performed By: #### L501.080 #### Laboratory Point of Care [address] [place] [address] ABDOMEN SINGLE VIEW Observed: 08/12/2018 Status: F Source: [place]ELA (PORTABLE) 10:37 PM [facility] [place] [facility] Imaging Services [address] [place] [address] Abdomen Single View (Portable) MR#: [id number] Acct: [id number] Name: PAVITHRA PAINTER Rep #: [id number] : 1970 F 47 From: Abiodun Johnson DO PCP: Vu GARCIA,Mitchell Yadav Status: ADM IN Study: Abdomen Single View (Portable) Date of Exam: 08/12/18 Exam# [id number] Ordering Dr: Garcia Mead MD STUDY: X-RAY - ABDOMEN/PELVIS REASON FOR EXAM: Female, 47 years old. NG tube placement TECHNIQUE: Single frontal view COMPARISON: August 12, 2018 at 21:42 hours. FINDINGS: Normal visualized lung bases. There is an unremarkable bowel gas pattern. There is no demonstrated free abdominal air. Nasogastric tube remains at the GE junction without significant changes in position since the previous study. Normal soft tissue structures. Normal visualized osseous structures. RAD/Abdomen Single View (Portable) IMPRESSION: Nasogastric tube with tip at the GE junction. No significant interval changes. Electronically Signed: Abiodun Johnson DO at 23:26 EST Tel [phone], Service support , CC: Garcia Mead MD; Mitchell Womack MD Electric Tripper Machine Operator: Signed BEDSIDE GLUCOSE Collected: 08/12/2018 Status: F Source: [place] 9:58 PM [facility] TYPE CODE TESTS RESULT OUT OF RANGE REFERENCE UNITS LAB L501.080 70-110 mg/dL Normal BEDSIDE GLU 99 Result Comment: MANAGEMENT OF PATIENT CARE PER NURSING PROTOCOL Performed By: #### L501.080 #### Laboratory Point of Care [address] [place] [address] ABDOMEN SINGLE VIEW Observed: 08/12/2018 Status: F Source: [place] (PORTABLE) 9:42 PM [facility] Imaging Services [address] [place] [address] Abdomen Single View (Portable) MR#: [id number] Acct: [id number] Name: PAVITHRA PAINTER Rep #: [id number] : 1970 F 47 From: Abiodun Johnson DO PCP: Vu GARCIA,Mitchell Yadav Status: ADM IN Study: Abdomen Single View (Portable) Date of Exam: 08/12/18 Exam# [id number] Ordering Dr: Garcia Mead MD STUDY: X-RAY - ABDOMEN/PELVIS REASON FOR EXAM: Female, 47 years old. NG tube placement TECHNIQUE: Single frontal view COMPARISON: None. FINDINGS: Normal visualized lung bases. There is an unremarkable bowel gas pattern. There is no demonstrated free abdominal air. Nasogastric tube is noted with tip at the GE junction. It needs to be advanced by another 8 to 9 cm into the stomach. Normal soft tissue structures. Normal visualized osseous structures. RAD/Abdomen Single View (Portable) IMPRESSION: Nasogastric tube with tip at the GE junction. It needs to be advanced further by 8 to 9 cm. Electronically Signed: Abiodun Johnson DO at 22:28 EST Tel [phone], Service support , CC: Garcia Mead MD; Mitchell Womack MD Electric Tripper Machine Operator: Signed BLOOD GASES BY CPS Collected: 08/12/2018 Status: F Source: [place] 9:12 PM [facility] [facility] TYPE CODE TESTS RESULT OUT OF RANGE REFERENCE UNITS LAB L9000.9990 Normal BLD GAS TYPE ART LAB L9001.1000 Normal SITE R Radial LAB L9001.1010 Normal SHARRI TEST POS LAB L9001.1050 O2 Normal Delivery Dev Room Air LAB L9001.1104 Normal Results To HOSP MD LAB L9001.1105 Normal Time Given 2100 LAB L9001.1110 7.35-7.45 pH Normal - I-STAT 7.42 LAB L9001.1210 35-45 mmHg Normal pCO2 - ISTAT 37.4 LAB L9001.1310 75-100 mmHG Normal PO2 I-STAT 93 LAB L9001.2300 22-26 mmol/L Normal HCO3 ISTAT 24.1 LAB L9001.2400 -2 to +2 mmol/L BE Normal ISTAT 0 LAB L9001.2415 mmol/L Normal TOTAL CO2 25 ISTAT LAB L9001.2425 95-99 % Normal SO2 ISTAT 97 Performed By: #### L9000.0800 #### Laboratory Point of Care [address] [place] [address] BEDSIDE GLUCOSE Collected: 08/12/2018 Status: F Source: [place] 8:44 PM [facility] TYPE CODE TESTS RESULT OUT OF REFERENCE UNITS RANGE LAB L501.080 70-110 mg/dL High BEDSIDE GLU 136 Result Comment: MANAGEMENT OF PATIENT CARE PER NURSING PROTOCOL Performed By: #### L501.080 #### Laboratory Point of Care [address] [place] [address] BRAIN WITHOUT Observed: 08/12/2018 Status: F Source: [place] CONTRAST 8:27 PM [facility] [place] [facility] Imaging Services [address] [place] [address] Brain without Contrast MR#: [id number] Acct: [id number] Name: PAVITHRA PAINTER Rep #: [id number] : 1970 F 47 From: Eliza Cheek PCP: Vu GARCIA,Mitchell Chi Status: ADM IN Study: Brain without Contrast Date of Exam: 08/12/18 Exam# [id number] Ordering Dr: Cami Sanchez DO STUDY: MRI BRAIN WITHOUT CONTRAST REASON FOR EXAM: Female, 47 years old. C Confusion pt unresponsive. TECHNIQUE: Standardized multiplanar fat and water weighted pulse sequences were obtained. COMPARISON: 08/12/2018 CT of the head FINDINGS: Normal size of the ventricles and extra-axial spaces for the patient's age. Normal white matter tracts of the supratentorial brain. Normal bilateral basal ganglia. Normal thalami. There is no extra-axial fluid accumulation. Normal flow voids within the major intracranial circulation suggesting patency by spin echo criteria. Normal sella turcica, pituitary gland, infundibular stalk, optic chiasm and hypothalamus. Normal tectal plate and pineal gland. Normal midbrain, ana and medulla. Normal cerebellum. Normal basal cisterns. There is mild paranasal sinus disease. MRI/Brain without Contrast IMPRESSION: Unremarkable unenhanced MRI of the brain. Electronically Signed: Eliza Cheek MD at 10:11 EST Tel , Service support , CC: Cami Sanchez DO; Mitchell Womack MD Electric Tripper Machine Operator: Signed BEDSIDE GLUCOSE Collected: 08/12/2018 Status: F Source: [place] 7:31 PM [facility] TYPE CODE TESTS RESULT OUT OF REFERENCE UNITS RANGE LAB L501.080 70-110 mg/dL High BEDSIDE GLU 155 Result Comment: MANAGEMENT OF PATIENT CARE PER NURSING PROTOCOL Performed By: #### L501.080 #### [facility] Laboratory Point of Care [address] [place] [address] BEDSIDE GLUCOSE Collected: 08/12/2018 Status: F Source: [place] 6:53 PM [facility] TYPE CODE TESTS RESULT OUT OF REFERENCE UNITS RANGE LAB L501.080 70-110 mg/dL Low BEDSIDE GLU 56 Result Comment: MANAGEMENT OF PATIENT CARE PER NURSING PROTOCOL Performed By: #### L501.080 #### Laboratory Point of Care [address] [place] [address] HISTORY AND PHYSICAL Observed: 08/12/2018 Status: F Source: [place] EXAM 6:41 PM [facility] Medical Records Department [address] [place] [address] History and Physical 08/12/18 1833 MR#: [id number] Acct: [id number] Name: PAVITHRA PAINTER Rep #: [id number] : 1970 47 From: Cami Sanchez DO PCP: Vu GARCIA,Mitchell Yadav Status: ADM IN Y Location: [place] [address] Problem List (1) Encephalopathy acute Status: Acute History of Present Illness Date of Admission: 08/12/18 Chief Complaint: change in mental status The patient is a 47 year old F brought in by family for change in mental status. Patient was brought in by family who abruptly left patient was found down and brought in. Patient underwent a workup including CT of the head and neck which were unremarkable. Patient continued to be encephalopathic. Patient unable to provide any history. Drug screen was negative in the emergency room but patient does receive a prescription for lorazepam, last prescription was filled on July 12. Patient be admitted for further stabilization and encephalopathy. [] Past Medical History Past Medical History (Chronic Problems): Chronic Problems (Last Reviewed 07/28/18 @ 13:13 by Gabriella Mansfield) Nonrheumatic mitral (valve) insufficiency (Chronic) Secondary pulmonary arterial hypertension (Chronic) Non-rheumatic tricuspid valve insufficiency (Chronic) End stage renal disease (Chronic) Chronic anemia (Chronic) Hypertension (Chronic) Narcolepsy (Chronic) Lupus nephritis (Chronic) Status post kidney and liver biopsy (fatty liver) Degenerative disc disease, cervical (Chronic) Cervical spondylosis (Chronic) Diabetes mellitus, type II (Chronic) SLE (systemic lupus erythematosus) (Chronic) Medical History: Medical History (Last Reviewed 08/12/18 @ 18:35 by Cami Sanchez DO) Nonrheumatic mitral (valve) insufficiency (Chronic) I34.0 Secondary pulmonary arterial hypertension (Chronic) I27.21 Non-rheumatic tricuspid valve insufficiency (Chronic) I36.1 End stage renal disease (Chronic) N18.6 Problem with dialysis access (Acute) T82.898A Chronic anemia (Chronic) D64.9 Hypertension (Chronic) I10 Narcolepsy (Chronic) G47.419 Lupus nephritis (Chronic) M32.14 Status post kidney and liver biopsy (fatty liver) Degenerative disc disease, cervical (Chronic) M50.30 Cervical spondylosis (Chronic) M47.812 Colitis (Acute) Leukopenia (Acute) D72.819 Diabetes mellitus, type II (Chronic) E11.9 SLE (systemic lupus erythematosus) (Chronic) M32.9 Acute renal failure (Resolved) Chronic kidney disease (Resolved) N18.9 Dehydration with hyponatremia (Resolved) E87.1 Hyperkalemia (Resolved) E87.5 Unresponsiveness (Resolved) R41.89 Allergies NEGRO Inhibitors Allergy (Verified 08/07/18 22:06) Angioedema lisinopril Allergy (Verified 08/07/18 22:06) Angioedema Sulfa (Sulfonamide Antibiotics) Allergy (Verified 08/07/18 22:06) Rash sulfamethoxazole [From Bactrim] Allergy (Verified 08/07/18 22:06) Rash trimethoprim [From Bactrim] Allergy (Verified 08/07/18 22:06) Rash Angioderm Adverse Reaction (Unknown, Uncoded 07/27/18 11:40) Unknown Home Medications: Ambulatory Orders Medication Instructions Recorded Duloxetine Hcl [Cymbalta] 120 mg PO DAILY 10/01/16 Surgical History: Surgical History (Last Reviewed 08/12/18 @ 18:35 by Cami Sanchez DO) History of esophagogastroduodenoscopy (EGD) Z98.890 Presence of surgically created arteriovenous shunt for hemodialysis Onset Date: 11/2017 Z99.2 S/P colonoscopy Z98.890 S/P lymph node biopsy Z98.890 S/P nasal polypectomy Z98.890 Status post carpal tunnel release Z98.890 Status post insertion of dialysis catheter Z95.828, Z99.2 Status post total hip replacement, bilateral Z96.643 port removed Surgical History: - Psychiatric History: Depression 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 Smoking Status: Unknown if ever smoked - *Family History Maternal Family History: Family History (Last Reviewed 08/12/18 @ 18:36 by Cami Sanchez DO) Mother Hypertension Kidney disease ALS (amyotrophic lateral sclerosis) Father Heart disease Hypertension Kidney disease Diabetes History Items: Diabetes, High Cholesterol, Heart Disease, Hypertension, Renal Disease, - Paternal Family History: Family History (Last Reviewed 08/12/18 @ 18:36 by Cami Sanchez DO) Mother Hypertension Kidney disease ALS (amyotrophic lateral sclerosis) Father Heart disease Hypertension Kidney disease Diabetes History Items: Diabetes, High Cholesterol, Heart Disease, Hypertension, Renal Disease Sibling Family History: Family History (Last Reviewed 08/12/18 @ 18:36 by Cami Sanchez DO) Mother Hypertension Kidney disease ALS (amyotrophic lateral sclerosis) Father Heart disease Hypertension Kidney disease Diabetes History Items: Diabetes Review of Systems Comment: Unable to obtain new social, past medical, family histories because of confusion. Unable to obtain a review of systems because of confusion. VTE Information - Inpt Only VTE Present on Admission: No VTE Pharm Prophylaxis ordered?: Yes Patient Problems: Active and Suspected Problems (Last Reviewed 07/28/18 @ 13:13 by Gabriella Mansfield) Encephalopathy acute (Acute) - Physical Exam General: Confused, - - Somnolent. Does not awake to noxious stimuli. HEENT: PERRLA, - - Proptosis. Oral: No Gingival or Mucosal Lesions/ Ulcerations, Dry Mucosa Neck: No Nodes, Thyroid Normal Size and Texture Lungs: Clear to auscultation, Normal air movement, No rhonchi, No wheeze Cardiovascular: Regular rate, Regular Rhythm, Normal S1, Normal S2, No murmurs Abdomen: Bowel Sounds Present, Soft, Non Tender, Non-Distended, No Hepato-splenomegaly Extremities: No Calf Tenderness, Edema - Some subtle edema of the upper extremities. No lower extremity edema. Skin: - - Some discoloration patella bilaterally. Musculoskeletal: No Tenderness to Palpation of Joints or Extremities, No Muscle Wasting Neurological: - - No clonus. DTRs are 1 out of 4 in the patellar reflexes bilaterally Vital Signs Temp Pulse Resp BP Pulse Ox 36.3 C L 86 11 L 196/109 H 100 08/12/18 15:20 08/12/18 17:37 08/12/18 17:37 08/12/18 17:37 08/12/18 17:37 Oxygen Flow Rate (L/min) 2 Oxygen Delivery Method Nasal Cannula Weight: 70.6 kg Body Mass Index (BMI) 28.4 Finger Stick Blood Glucose 70 Laboratory Tests Past 24 Hrs WBC RBC Hgb Hct MCV MCH MCHC WBC RBC Hgb Hct MCV MCH MCHC RDW RDW Differential Plt Count MPV Immature Gran % (Auto) POC Glucose POC Glucose 70 Clinical Impression(s) from Imaging Studies Brain CT 08/12/18 15:45 IMPRESSION: 1. No acute intracranial pathology. 2. Stable borderline expansile polyp or mucocele in the anterior right ethmoid sinus, contiguous with the opacified right frontal sinus. Changes of prior medial wall antrectomies and resection of the ethmoid sinus floors again noted. The moderate bilateral mucoperiosteal thickening of the maxillary sinuses on prior study has cleared. Electronically Signed: Richardson Sky MD at 16:47 EST , Service support , Cervical Spine CT 08/12/18 15:47 IMPRESSION: 1. No acute fracture of the cervical spine. 2. Minor multilevel degenerative changes, as described above. Electronically Signed: Richardson Syk MD at 16:54 EST , Service support , Chest X-Ray 08/12/18 15:50 IMPRESSION: 1. Suboptimal inspiratory effort with minor left base crowding. 2. Right chest wall dialysis catheter unchanged. The left subclavian MediPort seen on prior study has been removed. Electronically Signed: Richardson Sky MD at 16:21 EST , Service support , Assessment/Plan All Active Problems (Last Reviewed 07/28/18 @ 13:13 by Gabriella Mansfield) Encephalopathy acute (Acute) Postmenopausal bleeding (Acute) Problem with dialysis access (Acute) Segmental and somatic dysfunction of lumbar region (Acute) Segmental and somatic dysfunction of thoracic region (Acute) Segmental and somatic dysfunction of cervical region (Acute) Preop cardiovascular exam (Acute) Problem with dialysis access (Acute) Colitis (Acute) Leukopenia (Acute) Acute renal failure (Resolved) Chronic kidney disease (Resolved) Dehydration with hyponatremia (Resolved) Hyperkalemia (Resolved) Unresponsiveness (Resolved) 1. Encephalopathy I suspect it is a this is metabolic but cannot rule out other processes at this time Ammonia is normal Drug screen is normal Evaluate for seizure with an MRI and EEG. Question if there may be some evidence of benzo withdrawal seizure and prolonged postictal. Drug screen is negative for benzodiazepines of the 30 tablets of lorazepam on July 12. Hold potentiating medications 2. End-stage renal disease * Patient's creatinine is abnormal but the rest of her panel does not strike me as being uremic * Nephrology on consultation * Patient apparently missed her dialysis sessions this week. 3. DVT prophylaxis with subcu heparin Code Visit Inpatient E AND M: 24784 Init Hosp L3 08/12/18 184 <Electronically signed by Cami Sanchez DO> Date Cami Sanchez DO Cosigner Signature: Date (if applicable) CC: Cami Sanchez DO; Mitchell Womack MD Signed EMERGENCY DEPARTMENT Observed: 08/12/2018 Status: F Source: [place] SUMMARY 5:19 PM [facility] [place] Medical Records Department [address] [place] [address] Emergency Department Summary 08/12/18 1715 MR#: [id number] Acct: [id number] Name: PAVITHRA PAINTER Rep #: [id number] : 1970 47 From: Aminata Bridges DO PCP: Mitchell Womack MD, Chi Status: REG ER - ER Visit Summary Date of Service: 08/12/18 Chief Complaint: [Mental status change] History of Present Illness: The patient is a 47 F [presents to the emergency department with mental status change. Patient's brother apparently dropped off the emergency department and left. Brother told nursing staff that his mother had called stating that the patient was not feeling well and when he got home he found her on the floor. Patient was brought to the ER for evaluation. On arrival patient does not give much information and is a poor historian. She does state that she has a headache when asked and also some neck pain. Patient is not sure how she wound up on the floor. She denies any abdominal pain or chest pain. Patient has had prior similar episodes in the past of mental status change. She has a history of narcolepsy. Patient with history of end-stage renal disease and she tells me that she missed her dialysis 2 days ago. Patient also with history of SLE as well as colitis, leukopenia, degenerative disc disease, and hypertension.] Physical Examination: [HEENT-PERRLA, EOMI. Cranial nerves II through XII grossly intact. TMs clear. Mucous membranes moist. No adenopathy. Patient generally appears edematous. Patient keeps her eyes closed. Cardiovascular-regular rate and rhythm without murmur or ectopy Lungs-clear to auscultation, chest wall stable without crepitus or subcu emphysema Abdomen-normoactive bowel sounds, soft, nontender, no rebound or rigidity, no peritoneal signs. Neuro exam-no focal weakness noted as she does move all 4 extremities. Extremities-intact 4, normal range of motion, normal pulses, atraumatic] Test Results: [CT scan of the brain without contrast showed chronic changes otherwise nothing acute. CT C-spine showed no fractures. CBC with differential showed white count 6.9, hemoglobin 10.9, hematocrit 35, platelets 197. Chemistries unremarkable. BUN was 57 and creatinine 8.09. Troponin 0.024. Lactate 0.8. ABG showed a pH of 7.37 with a CO2 of 47 bicarb 27 and satting 99%. Chest x-ray showed nothing acute.] Emergency Department Course and Treatment: [Patient had an IV line established she was given normal saline at 125 cc an hour. Patient continues to be perseverating somewhat and not appropriate in conversation. Patient thought it was 2003.] Treatment Plan: [Admit for further workup and evaluation] Disposition: [Admit] Impression: [Mental status change Chronic renal failure] This note was generated with [employer] dictation software. It may contain incorrect words, spelling, and punctuation that were not noted in review of the chart prior to signing ED Disposition - Plan for ED Patient: Chief Complaint: Alt LOC Referrals: Mitchell Womack Chi, MD [Primary Care Provider] - What to do if you have Problems For any increased pain, shortness of breath, bleeding, nausea or vomiting, chest pain, or any unexpected problems, contact your Primary Care Provider. Call [facility] ([phone]) or report to the closest Emergency Room. Call 911 if necessary. 08/12/18 1719 <Electronically signed by Aminata Bridges DO> Date Aminata Bridges DO Cosigner Signature (If Indicated): Date CC: Mitchell Womack MD BLOOD GASES BY CPS Collected: 08/12/2018 Status: F Source: [place] 4:44 PM [facility] [place] [facility] TYPE CODE TESTS RESULT OUT OF RANGE REFERENCE UNITS LAB L9000.9990 Normal BLD GAS TYPE ART LAB L9001.1000 L Normal SITE Brachial LAB L9001.1010 NA Normal SHARRI TEST LAB L9001.1050 O2 Normal Delivery Dev Nasal Can LAB L9001.1055 /min Normal LPM 2.0 LAB L9001.1104 ED Normal Results To LAB L9001.1105 Normal Time Given 1640 LAB L9001.1110 7.35-7.45 pH Normal - I-STAT 7.37 LAB L9001.1210 35-45 mmHg High pCO2 - ISTAT 46.7 LAB L9001.1310 75-100 mmHG High PO2 I-STAT 120 LAB L9001.2300 22-26 mmol/L High HCO3 ISTAT 27.1 LAB L9001.2400 -2 to +2 mmol/L BE 2 Normal ISTAT LAB L9001.2415 mmol/L 29 Normal TOTAL CO2 ISTAT LAB L9001.2425 95-99 % 99 Normal SO2 ISTAT Performed By: #### L9000.0800 #### Laboratory Point of Care [address] [place] [address] URINE DRUG SCREEN Collected: 08/12/2018 Status: F Source: [place] (VISTA) 4:15 PM [facility] Order Comment: Order Date: 08/12/18 TYPE CODE TESTS RESULT OUT OF RANGE REFERENCE UNITS LAB L505.0075 TO BE Normal CONFIRMED Result Comment: CONFIRMATORY TESTING FOR ALL POSITIVE URINE DRUG SCREEN RESULTS WILL ONLY BE SENT OUT UPON PHYSICIAN ORDER. VISTA Urine Drug Screen methods provide only preliminary analytical test results. A more specific alternate chemical method must be used in order to obtain a confirmed analytical result. Gas chromatography/mass spectrometery (GC/MS) is the preferred confirmatory method. Clinical consideration and professional judgement should be applied to any drug of abuse test result, particularly when preliminary positive results are used. URINE TCA TESTING MUST BE ORDERED SEPARATELY. USE TEST MNEMONIC: [facility] LAB L505.5005 VISTA UDS PH 7 Normal LAB L505.5015 <1000 ng/mL AMPHETAMINES Normal NEGATIVE LAB L505.5025 < 200 ng/mL BARBITIURATES Normal NEGATIVE LAB L505.5035 < 200 ng/mL BENZODIAZIPINE Normal NEGATIVE LAB L505.5045 < 300 ng/mL COCAINE Normal NEGATIVE LAB L505.5055 < 500 ng/mL ECSTACY Normal NEGATIVE LAB L505.5065 < 300 ng/mL METHADONE Normal NEGATIVE LAB L505.5075 < 300 ng/mL OPIATES Normal NEGATIVE LAB L505.5085 < 25 ng/mL PCP Normal NEGATIVE LAB L505.5095 < 50 ng/mL THC Normal NEGATIVE Performed By: #### L505.5000 #### Laboratory [address] [place], [address] CBC W/DIFF, AUTOMATED Collected: 08/12/2018 Status: F Source: [place] 4:00 PM [facility] [place] [facility] TYPE CODE TESTS RESULT OUT OF RANGE REFERENCE UNITS LAB L100.1000 4.4-11.0 K/mm3 Normal WBC 6.9 LAB L100.1200 4.2-5.4 M/mm3 Low RBC 3.48 LAB L100.1300 12.0-15.0 g/dl Low HGB 10.9 LAB L100.1400 37-47 % Low HCT 35.0 LAB L100.1500 81-99 fL High MCV 100.6 LAB L100.1600 27.0-32.0 pg Normal MCH 31.3 LAB L100.1700 32-36 g/gl Low MCHC 31.1 LAB L100.1810 11.6-14.6 % High RDW CV 16.2 LAB L100.1820 35.1-43.9 fl High RDW SD 58.6 LAB L100.1900 150-450 K/mm3 Normal PLT 197 LAB L100.2000 6.2-12.0 fl Normal MPV 9.9 LAB L100.2100 47-70 % High NEUT% 70.3 LAB L100.2200 19-41 % Normal LY% 20.2 LAB L100.2300 0-10 % Normal MONO% 6.6 LAB L100.2400 0-5 % Normal EO% 2.5 LAB L100.2500 0-1 % Normal BASO% 0.1 LAB L100.2550 0.0-0.9 % Normal IM GRAN % 0.300 Result Comment: IG% - Immature Granulocytes (promyelocytes, myelocytes and metamyelocytes) > 1% indicates that a LEFT SHIFT is Present. LAB L100.2620 2.0-7.7 X10 3/uL Normal Absolute Neut 4.9 LAB L100.2720 0.83-4.51 X10 3/ul Normal Absolute Lymph 1.40 Performed By: #### L100.0100 #### Laboratory [address] [place], [address] BASIC METABOLIC Collected: 08/12/2018 Status: F Source: [place] PROFILE (BMP) 4:00 PM [facility] [place] TYPE CODE TESTS RESULT OUT OF RANGE REFERENCE UNITS LAB L501.0100 74-106 mg/dL Normal GLU 89 Result Comment: Please note revised GLUCOSE reference range effective 2017. LAB L501.1000 7-18 mg/dL High BUN 57 LAB L501.1100 0.55-1.02 mg/dL High alert CREAT,SERUM 8.09 Result Comment: Critical Result(s) Called Sydnee GIL at: 16:35:27 08/12/2018 by: REINALDO DECKER The validity of the calculated GFR AND GFRAA in patients over 70 years has not been determined. Clinical correlation is essential. LAB L501.1110 >60 mL/min Low EST GFR 6 Result Comment: Non- GFR Calc LAB L501.1115 >60 mL/min Low EST GFR - AA 7 Result Comment: GFR Calc LAB L501.1255 ml/min Normal Estimated CRCL 6.95 LAB L501.1300 10-20 RATIO Low BUN/CRE 7.0 LAB L501.2200 8.5-10. mg/dL Normal 1 CA 9.6 LAB L501.5300 136-145 mmol/L Normal NA 145 LAB L501.5600 3.5-5.1 mmol/L Normal K 4.5 LAB L501.5900 98-107 mmol/L High CL 108 LAB L501.6100 21.0-32 mmol/L Normal .0 CO2 28.0 LAB L501.6200 5-15 Normal GAP 9 Performed By: #### L500.2500, L501.4010 #### Laboratory [address] [facility] [address] [place], [place], [id number] TROPONIN-I Collected: 08/12/2018 Status: F Source: [place] 4:00 [facility] [place] REPOSITORY TYPE CODE TESTS RESULT OUT OF RANGE REFERENCE UNITS LAB L501.4010 <0.045 ng/mL Normal 0.024 TROPONIN-I Result Comment: TROPONIN-I EXPECTED VALUES <0.045 Negative 0.045 - 0.590 Consistent with Cardiac Damage > OR = 0.600 Critical Value Not every elevated troponin is indicative of IA. These values should be used with clinical judgement in examining the patient's clinical picture for diagnosis. To establish a diagnosis of IA versus myocardial injury, there must be a demonstrated rise and/or fall in the troponin values, in addition to ischemic symptoms, EKG changes, new regional wall motion abnormality, and/or angiographical evidence. PLEASE NOTE: REFERENCE RANGES EDITED 18 Performed By: #### L500.2500, L501.4010 #### Laboratory [address] [place], [address] LACTIC ACID Collected: 08/12/2018 Status: F Source: [place] 4:00 PM [facility] [place] Order Comment: Yes/No query for Sepsis Lactate Rule Y TYPE CODE TESTS RESULT OUT OF RANGE REFERENCE UNITS LAB L503.6005 0.4-2.0 mmol/L Normal LACTIC ACID 0.8 Performed By: #### L503.6005 #### Laboratory [address] [place], [address] CPK TOTAL, CREATINE Collected: 08/12/2018 Status: F Source: [place] KINASE 4:00 PM [facility] [place] TYPE CODE TESTS RESULT OUT OF RANGE REFERENCE UNITS LAB L501.3620 26-192 U/L Normal CPK TOTAL 118 Performed By: #### L501.3620 #### Laboratory [address] [place], [address] AMMONIA Collected: 08/12/2018 Status: F Source: [place] 4:00 PM [facility] [place] TYPE CODE TESTS RESULT OUT OF RANGE REFERENCE UNITS LAB L503.5510 11-32 umol/L Normal AMMONIA 18.0 Performed By: #### L503.5510 #### Laboratory [address] [place], [address] Observed: 08/12/2018 Status: F Source: [place] CULTURE, BLOOD (WB) 4:00 PM [facility] [place] BC No growth in 5 days. Performed By: #### M200.1000 #### Laboratory [address] [place], [address] Observed: 08/12/2018 Status: F Source: [place] CULTURE, BLOOD (WB) 4:00 PM [facility] [place] BC No growth in 5 days. Performed By: #### M200.1000 #### Laboratory [address] [place], [address] SPINE CERVICAL Observed: 08/12/2018 Status: F Source: [place] WITHOUT CONTRAS 3:48 PM [facility] [place] [facility] Imaging Services [address] [place] [address] Spine Cervical without Contras MR#: [id number] Acct: [id number] Name: PAVITHRA PAINTER Rep #: [id number] : 1970 F 47 From: Byron Sky MD PCP: Vu GARCIA,Mitchell Chi Status: REG ER Study: Spine Cervical without Contras Date of Exam: 08/12/18 Exam# [id number] Ordering Dr: Ungur,Remus DO STUDY: CT CERVICAL SPINE WITHOUT CONTRAST REASON FOR EXAM: Female, 47 years old. Altered level of consciousness, fall. RADIATION DOSAGE (If Supplied By Facility): CTDIvol = ( 23.63 ) mGy, DLP = ( 488.42 ) mGycm TECHNIQUE: High resolution transaxial imaging was performed without contrast material. Sagittal and coronal images were reconstructed. Individualized dose optimization techniques were used for this CT. COMPARISON: CT cervical spine September 27, 2017. FINDINGS: Normal craniovertebral junction. There are degenerative changes of the anterior atlantoaxial articulation. Normal odontoid process. There is straightening of the normal cervical lordosis. Stable well-corticated central depression of the superior T2 vertebral endplate consistent with a benign Schmorl's node. No acute fracture of the cervical vertebral bodies and posterior osseous elements. C2-3: Normal endplates. Normal disc height and morphology. Normal bilateral facet articulations. Normal central canal and intervertebral neuroforamina. C3-4: Mild right posterolateral endplate spurring and early left posterolateral degenerative endplate lipping. Normal disc height and morphology. Early degenerative arthrosis of the left facet articulation. Normal central canal and intervertebral neuroforamina. C4-5: Bilateral posterolateral endplate spurring. Mild disc height narrowing. Normal central canal. Mild osseous encroachment on the left intervertebral neuroforamen. C5-6: Anterior endplate spurring and right posterior lateral endplate osteophyte. Moderate disc narrowing. Early degenerative arthrosis of the left facet articulation. Normal central canal. Mild osseous encroachment on the bilateral intervertebral neuroforamina. C6-7: Early anterior endplate spurring and posterior lateral degenerative endplate lipping. Normal disc height and morphology. Mild degenerative narrowing of the left facet joint. Normal central canal and intervertebral neuroforamina. C7-T1: Anterior T1 endplate spurring extends on the anterior disc margin. Normal disc height and morphology. Mild anterior particular spurring of the left facet joint. Normal central canal. Slight osseous encroachment on the left intervertebral neuroforamina. Normal visualized soft tissue structures. CT/Spine Cervical without Contras IMPRESSION: 1. No acute fracture of the cervical spine. 2. Minor multilevel degenerative changes, as described above. Electronically Signed: Richardson Sky MD at 16:54 EST , Service support , CC: Aminata Bridges DO; Mitchell Womack MD Electric Tripper Machine Operator: Signed CHEST 1 VIEW Observed: 08/12/2018 Status: F Source: [place] (PORTABLE) 3:47 PM [facility] [place] [facility] Imaging Services [address] [place] [address] Chest 1 View (Portable) MR#: [id number] Acct: [id number] Name: PAVITHRA PAINTER Rep #: [id number] : 1970 F 47 From: Byron Sky MD PCP: Mitchell Womack MD, Chi Status: PRE ER Study: Chest 1 View (Portable) Date of Exam: 08/12/18 Exam# [id number] Ordering Dr: Aminata Bridges DO STUDY: X-RAY CHEST REASON FOR EXAM: Female, 47 years old. Altered level of consciousness. TECHNIQUE: Single AP portable semierect view of the chest. COMPARISON: Portable AP upright chest x-ray February 01, 2018. FINDINGS: Left subclavian MediPort has been removed since prior exam. Dual-lumen tunneled right chest wall hemodialysis catheter is unchanged. The lungs are under expanded and there is subsegmental crowding in the left base. There is no demonstrated pleural abnormality. Normal size heart. Normal mediastinum when allowing for crowding. Normal malorie. Normal visualized pulmonary arteries. Normal visualized aortic arch and descending thoracic aorta. Normal visualized thoracic spine. Normal visualized ribs, clavicles, and shoulders. There is no demonstrated abnormality of the visualized soft tissue structures of the upper abdomen. RAD/Chest 1 View (Portable) IMPRESSION: 1. Suboptimal inspiratory effort with minor left base crowding. 2. Right chest wall dialysis catheter unchanged. The left subclavian MediPort seen on prior study has been removed. Electronically Signed: Richardson Sky MD at 16:21 EST , Service support , CC: Aminata Bridges DO; Mitchell Womack MD Electric Tripper Machine Operator: Signed BRAIN/HEAD WITHOUT Observed: 08/12/2018 Status: F Source: [place] CONTRAST 3:47 PM [facility] [place] [facility] Imaging Services [address] [facility] [place] [address] Brain/Head without Contrast MR#: [id number] Acct: [id number] Name: PAVITHRA PAINTER Rep #: [id number] : 1970 F 47 From: Byron Sky MD PCP: Mitchell Womack MD, Chi Status: REG ER Study: Brain/Head without Contrast Date of Exam: 08/12/18 Exam# [id number] Ordering Dr: Aminata Bridges DO STUDY: CT BRAIN WITHOUT CONTRAST REASON FOR EXAM: Female, 47 years old. Altered level of consciousness. RADIATION DOSAGE (If Supplied By Facility): CTDIvol = ( 44.99 ) mGy, DLP = ( 745.49 ) mGycm TECHNIQUE: Transaxial CT imaging of the brain was performed without administration of intravenous contrast material. Individualized dose optimization techniques were used for this CT. COMPARISON: Noncontrast CT brain September 27, 2017 FINDINGS: There is residual thickening in the midline upper frontal scalp, near a site of prior swelling/cephalhematoma. There are too numerous to count punctate calcific densities in the frontal and subcutaneous tissues. Normal calvarium. Normal size ventricles and extra-axial spaces for the patient's age. Normal white matter tracts of the cerebral hemispheres. Normal basal ganglia and thalami. Normal brainstem. Normal cerebellum. Mild atherosclerotic plaquing of the cavernous segments of the bilateral internal carotid arteries. There is no intracranial hemorrhage. There are no findings of an acute ischemic infarction. Stable borderline expansile soft tissue density in the anterior right ethmoid sinus is contiguous with the opacified right frontal sinus, suggesting mucocele or polyp. Patient has undergone prior medial wall antrectomies and resection of the floors of the ethmoid air cells. The moderate mucoperiosteal thickening of the bilateral maxillary sinuses on previous exam has resolved. CT/Brain/Head without Contrast IMPRESSION: 1. No acute intracranial pathology. 2. Stable borderline expansile polyp or mucocele in the anterior right ethmoid sinus, contiguous with the opacified right frontal sinus. Changes of prior medial wall antrectomies and resection of the ethmoid sinus floors again noted. The moderate bilateral mucoperiosteal thickening of the maxillary sinuses on prior study has cleared. Electronically Signed: Richardson Sky MD at 16:47 EST , Service support , CC: Aminata Bridges DO; Mitchell Womack MD Electric Tripper Machine Operator: Signed BEDSIDE GLUCOSE Collected: 08/12/2018 Status: F Source: [place] 3:26 PM [facility] [place] TYPE CODE TESTS RESULT OUT OF RANGE REFERENCE UNITS LAB L501.080 70-110 mg/dL Normal BEDSIDE GLU 70 Result Comment: MANAGEMENT OF PATIENT CARE PER NURSING PROTOCOL Performed By: #### L501.080 #### Laboratory Point of Care [address] [place] [address] EMERGENCY DEPARTMENT Observed: 08/08/2018 Status: F Source: [place] SUMMARY 7:05 AM [facility] [place] [facility] Medical Records Department [address] [place] [address] Emergency Department Summary 08/07/18 2242 MR#: [id number] Acct: [id number] Name: PAVITHRA PAINTER Rep #: [id number] : 1970 47 From: Dao Neumann MD PCP: Mitchell Womack MD, Chi Status: DEP ER - ER Visit Summary Date of Service: 08/07/18 Chief Complaint: [] Could not wake me up History of Present Illness: The patient is a 47 F patient could not wake up today. She stated that she did some shopping with her friend and went back to their house and was feeling tired and nodding off during dinner. She laid down and fell asleep. Her friend later could not wake her up. Called EMS. EMS could not wake her up as well. Brought in in then woke up upon arrival. She reports a history of narcolepsy. She states this happens infrequently. She denies any symptoms currently. Her blood sugar was 67. She is a dialysis patient and her last dialysis was 2 days ago. She denies any alcohol or illegal drug use. She had a metabolic encephalopathy in September of this year and required intubation secondary to uremia at that time. Physical Examination: Vital signs reviewed General: Well-nourished well-developed Head: Normocephalic atraumatic Eyes: Pupils equal round and reactive to light extraocular movements intact ENT: TMs clear no hemotympanum no trauma Neck: Nontender full range of motion Cardiovascular: Regular rate rhythm no murmurs normal S1-S2 Respiratory: No distress clear to auscultation bilaterally chest nontender Abdomen: Soft nontender nondistended normal bowel sounds no masses Back: Nontender no CVA tenderness Extremities: Nontender active range of motion 4 extremities no trauma Skin: Normal color no trauma Neuro alert oriented cranial nerves II through XII intact normal strength sensation reflexes Test Results: [] Emergency Department Course and Treatment: [] Patient resting comfortably without complaint. Lab work obtained. Lab work shows a CBC normal except hemoglobin 9.2 which is chronically low for the patient. Previous was 10.2. Chemistries normal except creatinine 9.4 BUN 74. At this time I think the patient's excessive sleepiness is from uremia. Her urine analysis showed nothing acute. Blood glucose test was 83 and she did tolerate some orals. She has been awake and easily arousable here. I think she can be discharged. Her mom is at home. She shows no signs of not being able to be aroused here. She has dialysis in the morning and the next 6 hours. I offered to watch her here until she could be discharged to dialysis but she like to go home. Treatment Plan: [] Disposition: [] Impression: [] Unresponsive episode likely secondary to uremia This note was generated with [employer] software. It may contain incorrect words, spelling, and punctuation that were not noted in review of the chart prior to signing ED Disposition - Plan for ED Patient: Chief Complaint: Unresponsive Referrals: Mitchell Womack Chi, MD [Primary Care Provider] - What to do if you have Problems For any increased pain, shortness of breath, bleeding, nausea or vomiting, chest pain, or any unexpected problems, contact your Primary Care Provider. Call [facility] ([phone]) or report to the closest Emergency Room. Call 911 if necessary. 08/08/18704 <Electronically signed by Dao Neumann MD> Date Dao Neumann MD Cosigner Signature (If Indicated): Date CC: Mitchell Womack MD DISCHARGE INSTRUCTION Observed: 08/08/2018 Status: F Source: [place] 7:04 AM [facility] [place] [facility] Medical Records Department [address] [place] [address] Discharge Instruction 08/08/18 0156 MR#: [id number] Acct: [id number] Name: PAVITHRA PAINTER Rep #: [id number] : 1970 47 From: Dao Neumann MD PCP: Mitchell Womack MD, Chi Status: DEP ER ED Disposition - Plan for ED Patient: Disposition: Home or Assisted Living Chief Complaint: Unresponsive Instructions: Healthy Kid[facility] Referrals: Mitchell Womack Chi, MD [Primary Care Provider] - What to do if you have Problems For any increased pain, shortness of breath, bleeding, nausea or vomiting, chest pain, or any unexpected problems, contact your Primary Care Provider. Call [facility] ([phone]) or report to the closest Emergency Room. Call 911 if necessary. 08/08/18703 <Electronically signed by Dao Neumann MD> Date Dao Lyleignhuy Signature (If Indicated): Date CC: Mitchell Womack MD CBC-COMPLETE BLOOD CNT Collected: 08/07/2018 Status: F Source: [place] NO DIFF 11:24 PM [facility] [place] TYPE CODE TESTS RESULT OUT OF RANGE REFERENCE UNITS LAB L100.1000 4.4-11.0 K/mm3 Normal WBC 6.1 LAB L100.1200 4.2-5.4 M/mm3 Low RBC 2.86 LAB L100.1300 12.0-15.0 g/dl Low HGB 9.2 LAB L100.1400 37-47 % Low HCT 30.0 LAB L100.1500 81-99 fL High MCV 104.9 LAB L100.1600 27.0-32.0 pg High MCH 32.2 LAB L100.1700 32-36 g/gl Low MCHC 30.7 LAB L100.1810 11.6-14.6 % High RDW CV 16.3 LAB L100.1820 35.1-43.9 fl High RDW SD 60.2 LAB L100.1900 150-450 K/mm3 Normal PLT 163 LAB L100.2000 6.2-12.0 fl Normal MPV 9.9 Performed By: #### L100.0500 #### Laboratory [facility] [place], [address] BASIC METABOLIC Collected: 08/07/2018 Status: F Source: [place] PROFILE (BMP) 11:24 PM [facility] [place] TYPE CODE TESTS RESULT OUT OF RANGE REFERENCE UNITS LAB L501.0100 74-106 mg/dL Normal GLU 101 Result Comment: Fasting Glucose result from 100 to 125 mg/dL suggests IMPAIRED HOMEOSTASIS per A.D.A. criteria. Please note revised GLUCOSE reference range effective 2017. LAB L501.1000 7-18 mg/dL High BUN 74 LAB L501.1100 0.55-1.02 mg/dL High alert CREAT,SERUM 9.42 Result Comment: The validity of the calculated GFR AND GFRAA in patients over 70 years has not been determined. Clinical correlation is essential. LAB L501.1110 >60 mL/min Low EST GFR 5 Result Comment: Non- GFR Calc LAB L501.1115 >60 mL/min Low EST GFR - AA 6 Result Comment: GFR Calc LAB L501.1255 ml/min Normal Estimated CRCL 6.51 LAB L501.1300 10-20 RATIO Low BUN/CRE 7.9 LAB L501.2200 8.5-10. mg/dL Normal 1 CA 8.7 LAB L501.5300 136-145 mmol/L Normal NA 140 Result Comment: Critical Result(s) Called at: 00:55:46 08/08/2018 by: Kannan Merino to dr. westbrook LAB L501.5600 3.5-5.1 mmol/L Normal K 4.4 LAB L501.5900 98-107 mmol/L Normal CL 104 LAB L501.6100 21.0-32.0 mmol/L Normal CO2 24.0 LAB L501.6200 5-15 Normal GAP 12 Performed By: #### L500.2500 #### Laboratory [address] [place], [place], [address] BEDSIDE GLUCOSE Collected: 08/07/2018 Status: F Source: [place] 11:11 PM [facility] [place] TYPE CODE TESTS RESULT OUT OF RANGE REFERENCE UNITS LAB L501.080 70-110 mg/dL Normal BEDSIDE GLU 83 Result Comment: MANAGEMENT OF PATIENT CARE PER NURSING PROTOCOL Performed By: #### L501.080 #### Laboratory Point of Care [address] [place] [address] URINALYSIS, COMPLETE Collected: 08/07/2018 Status: F Source: [place] 10:48 PM [facility] [place] [facility] Order Comment: Order Date: 08/07/18 How was Urine Obtained? CLEAN CATCH TYPE CODE TESTS RESULT OUT OF RANGE REFERENCE UNITS LAB L400.3000 Yellow COLOR Normal Yellow LAB L400.3050 Clear Normal CLARITY Sl. Cloudy LAB L400.3200 Normal mg/dl High 50 GLUCOSE, UR LAB L400.3300 Negative mg/dL Normal BILIRUBIN URINE Negative LAB L400.3400 Negative mg/dl Normal KETONE UR Negative LAB L400.3465 1.002-1.030 Normal SP.GR. DIPSTX 1.015 LAB L400.3550 5.0 - 8.0 pH UR Normal 8.0 LAB L400.3600 Negative mg/dl High PROT DIPSTX 100 LAB L400.3700 Normal mg/dl Normal UROBILI Normal LAB L400.3750 Negative Normal NITRITE UR Negative LAB L400.3780 Negative /ul High 10 OCCULT BLOOD-UR LAB L400.3800 Negative /ul LEUK Normal ESTERASE Negative LAB L400.4050 0-5 /hpf WBC Normal 0-5 SEEN LAB L400.4100 0-5 /hpf Normal RBC-UA 0-5 SEEN LAB L400.4150 5-10 /hpf SQUAM Normal EPI 0-5 SEEN LAB L400.4300 None Seen /hpf 0 Normal BACTERIA SEEN LAB L400.4350 <or=2+ /hpf 0 Normal MUCUS, URINE SEEN LAB L400.4400 0-5 /lpf Normal HYALINE CAST 0-5 SEEN Performed By: #### L400.0001 #### Laboratory [facility] [place], [address] BEDSIDE GLUCOSE Collected: 08/07/2018 Status: F Source: [place] 10:08 PM [facility] [place] TYPE CODE TESTS RESULT OUT OF REFERENCE UNITS RANGE LAB L501.080 70-110 mg/dL Low BEDSIDE GLU 67 Result Comment: MANAGEMENT OF PATIENT CARE PER NURSING PROTOCOL Performed By: #### L501.080 #### Laboratory Point of Care [address] [place], [place] [address] LIVER PROFILE Collected: 07/28/2018 Status: F Source: [place] 2:07 PM [facility] [place] TYPE CODE TESTS RESULT OUT OF RANGE REFERENCE UNITS LAB L501.1500 6.4-8.2 g/dL Normal T PROT 7.3 LAB L501.1800 3.2-5.0 g/dL Low ALB 3.1 LAB L501.1950 2.2-4.2 g/dL Normal GLOB 4.2 LAB L501.4100 15-37 U/L Normal AST 35 LAB L501.4305 45-117 U/L Normal ALK P 72 LAB L501.4405 13-56 U/L Low ALT 9 LAB L501.4600 0.20-1.00 mg/dL Normal T BILI 0.60 LAB L501.4700 0.00-0.30 mg/dL Normal D BILI 0.18 Performed By: #### L500.3400, L500.4100 #### Laboratory [address] [place], [address] LIPID PROFILE Collected: 07/28/2018 Status: F Source: [place] 2:07 PM [facility] [place] TYPE CODE TESTS RESULT OUT OF RANGE REFERENCE UNITS LAB L501.4900 200 mg/dL Normal CHOL 89 Result Comment: <200 mg/dL Desirable 200-240 mg/dL Borderline >240 mg/dL High Risk LAB L501.5000 mg/dL Normal TRIG 145 Result Comment: The drugs N-Acetylcysteine and Metamizole may falsely depress this assay. Serum Triglycerides Reference Interval Normal <150 mg/dL Borderline high 150 - 199 mg/dL High 200 - 499 mg/dL Very High > or = 500 mg/dL LAB L501.6400 mg/dL Normal HDL 62 Result Comment: The drugs N-Acetylcysteine and Metamizole may falsely depress this assay. Reference Range HDL <40 mg/dL Low HDL Cholesterol HDL >or= 60 mg/dL High HDL Cholesterol LAB L501.6500 0-130 mg/dL Low LDL -2 LAB L501.6600 5-40 mg/dL Normal VLDL 29 Performed By: #### L500.3400, L500.4100 #### Laboratory [address] [place], [address] CARDIOLOGY VISIT Observed: 07/28/2018 Status: F Source: [place] REPORT 1:35 PM [facility] [place] [facility] [address] [place] [address] OFFICE VISIT Date of Service: 07/28/18 MR#: [id number] Acct: [id number] Name: PAVITHRA PAINTER Rep #: [id number] : 1970 Provider: Cesar Roberts MD Age/Sex: 47/F Location: [facility] Status: Signed HPI [facility] Chief Complaint: post op Details: PAVITHRA PAINTER, is a 47 F with a history of diabetes, hypertension, hyperlipidemia, end-stage renal disease currently on dialysis due to lupus nephritis, who was referred to our office for preoperative stratification for D AND C. Specifically, due to her medications and lupus she has been postmenopausal for the past 10 years, and is recently had intermittent bleeding requiring further evaluation. In addition she has been on the renal transplant list at for the better part of a year, and reportedly had a cardiac workup in July 2017 including a stress test and an echocardiogram although we do not have those results in front of us. She did undergo a catheterization more than 10 years ago at [facility] she cannot recall the reason why. She did undergo an echocardiogram on 01/09/16 at [facility] which demonstrated intact LV function of 60%, mild diffuse mitral thickening, 1+ MR, moderate 2+ TR, RVSP of at least 50 mmHg. Since the fall 2016 the patient is undergone a left arm fistula which has not yet matured. Her hemodialysis occurs 3 times per week via a catheter in her right subclavian. Patient recently underwent successful AV fistula to her right arm, which is currently an operative and waiting to mature. She has had no exertional chest pain, angina, but does complain of mild dyspnea on exertion and shortness of breath, but they appear to have improved since January 2018. She has no symptoms during dialysis. Her left arm fistula has failed, and her left subclavian catheter has been removed Underwent a stress echocardiogram at on 02/17/18 which was negative for inducible ischemia. Patient repeat echocardiogram on 01/25/18 which showed an EF of 65%, stage I diastolic dysfunction, and RVSP had improved from 50 down to 31 mmHg. In our office today her blood pressure is 104/60, pulse is 76 and regular. Physical exam is as below. Lipids are pending. test dated 12/10/17 is negative. EKG dated 09/27/17 shows normal sinus rhythm, normal axis, normal intervals, early R-wave progression across the precordium which may be secondary to lead misplacement. Intake Vital Signs07/28/18 Height 5 ft 4 in 07/28/18 Weight: 154 lb 07/28/18 Body Mass Index (BMI) 26.4 07/28/18 Blood Pressure 104/60 07/28/18 Blood Pressure Location Lt brachial Intake Visit Reasons: 6 M FU (dialysis M W F) Film Or Tape Librarian Required: No Is patient in pain?: No Allergies NEGRO Inhibitors Allergy (Verified 06/09/18 13:26) Angioedema lisinopril Allergy (Verified 06/09/18 13:26) Angioedema Sulfa (Sulfonamide Antibiotics) Allergy (Verified 06/09/18 13:26) Rash sulfamethoxazole [From Bactrim] Allergy (Verified 06/09/18 13:26) Rash trimethoprim [From Bactrim] Allergy (Verified 06/09/18 13:26) Rash Angioderm Adverse Reaction (Unknown, Uncoded 07/27/18 11:40) Unknown Medications Duloxetine Hcl [Cymbalta] 120 mg PO DAILY 10/01/16 [History Confirmed 07/28/18] Hydroxychloroquine [Plaquenil] 200 mg PO BIDCM 10/01/16 [History Confirmed 07/28/18] Linagliptin [Tradjenta] 5 mg PO DAILY 10/01/16 [History Confirmed 07/28/18] Montelukast [Singulair] 10 mg PO QHS 10/01/16 [History Confirmed 07/28/18] Acyclovir [Zovirax] 400 mg PO TID PRN 10/26/16 [History Confirmed 07/28/18] Ergocalciferol [Vitamin D] 1.25 cap PO QMONTH 01/21/17 [History Confirmed 07/28/18] Amlactin Ultra Body Cream 1 applic TOPICAL DAILY PRN 02/17/17 [History Confirmed 07/28/18] Sevelamer Carbonate 2,400 mg PO TID 12/09/17 [History Confirmed 07/28/18] metoprolol tartrate 25 mg tablet 25 mg PO BID 01/11/18 [History Confirmed 07/28/18] prednisone 10 mg tablet 5 mg PO DAILYCM tab 01/11/18 [History Confirmed 07/28/18] Acetaminophen [Tylenol Extra Strength] 500 tab BID PRN PRN MDD 1000 01/20/18 [History Confirmed 07/28/18] Atorvastatin Calcium [Lipitor] 20 mg PO QHS 01/20/18 [History Confirmed 07/28/18] Baclofen [Lioresal] 10 mg PO TID 01/20/18 [History Confirmed 07/28/18] Lorazepam [Ativan] 1 mg PO BID 01/20/18 [History Confirmed 07/28/18] Ondansetron HCl [Zofran] 4 mg PO PRN PRN 01/20/18 [History Confirmed 07/28/18] Pregabalin [Lyrica] 50 mg PO BID 01/20/18 [History Confirmed 07/28/18] calcitriol 0.25 mcg capsule 0.25 mcg PO ONCE 05/12/18 [History Confirmed 07/28/18] clindamycin 1 %-benzoyl peroxide 5 % topical gel 1 applic TOPICAL DAILY 05/12/18 [History Confirmed 07/28/18] dextroamphetamine-amphetamine ER 10 mg 24hr capsule,extend release 15 mg PO BID 05/12/18 [History Confirmed 07/28/18] famotidine 40 mg tablet 40 mg PO DAILY 05/12/18 [History Confirmed 07/28/18] fluticasone 50 mcg/actuation nasal spray,suspension 2 spray INTRANASAL DAILY 05/12/18 [History Confirmed 07/28/18] cetirizine 10 mg capsule 10 mg PO DAILY 07/28/18 [History Confirmed 07/28/18] cyclosporine 0.05 % eye drops in a dropperette 1 drp OPHTHALMIC Q12H 07/28/18 [History Confirmed 07/28/18] multivitamin tablet 1 tab PO DAILY 07/28/18 [History Confirmed 07/28/18] PFSH Medical History Nonrheumatic mitral (valve) insufficiency (Chronic) Secondary pulmonary arterial hypertension (Chronic) Non-rheumatic tricuspid valve insufficiency (Chronic) End stage renal disease (Chronic) Problem with dialysis access (Acute) Chronic anemia (Chronic) Hypertension (Chronic) Narcolepsy (Chronic) Lupus nephritis (Chronic) Degenerative disc disease, cervical (Chronic) Cervical spondylosis (Chronic) Colitis (Acute) Leukopenia (Acute) Diabetes mellitus, type II (Chronic) SLE (systemic lupus erythematosus) (Chronic) Acute renal failure (Resolved) Chronic kidney disease (Resolved) Dehydration with hyponatremia (Resolved) Hyperkalemia (Resolved) Unresponsiveness (Resolved) Surgical History History of esophagogastroduodenoscopy (EGD) (Acute) Presence of surgically created arteriovenous shunt for hemodialysis (Acute 11/2017) S/P colonoscopy (Acute) S/P lymph node biopsy (Acute) S/P nasal polypectomy (Acute) Status post carpal tunnel release (Acute) Status post insertion of dialysis catheter (Acute) Status post total hip replacement, bilateral (Acute) port removed (Acute) Family History Mother Hypertension Kidney disease ALS (amyotrophic lateral sclerosis) Father Heart disease Hypertension Kidney disease Diabetes Social History Smoking Status: Never smoker second hand exposure: No alcohol intake: never substance use type: does not use caffeine: No what type of physical activity do you participate in: other details: PT seatbelt use: always do you feel safe at home: Yes additional social history: Single ROS Const Const: Positive for other (Dialysis MTW, had fistula procedure Tues. Feels a little shaky); negative for fatigue, weakness, body ache, fever(s), headache(s), chills, frequent falls, night sweats, daytime sleepiness, difficulty sleeping, excessive sweating, weight gain, weight loss, increased appetite, poor appetite or anorexia Eyes Eyes: Negative for blind spots, loss of peripheral vision, transient loss of vision, blurry vision, change in vision, double vision, floaters, tunnel vision or other ENT ENT: Negative for headache(s), dizziness, hearing loss, tinnitus, Nosebleed/epistaxis, balance problems, post nasal drip, lip swelling, tongue swelling, bleeding gums, hoarseness, neck pain, dry mouth or other Cardio Chest Pain: No Palpitations: No Edema: None Muscle aches with walking: None Resp Respiratory: Positive for SOB with activity and Cough (dry cough); negative for SOB at rest, SOB orthopnea\SOB lying down, Coughing up blood/hemoptysis, chest congestion, pain on inspiration, snoring, stridor, wheezing, crackles, paroxysmal nocturnal dyspnea or other GI GI: Negative nausea, vomiting, heartburn, constipation, belching, bloating, cramping, vomiting blood/hematemesis, bright, red blood in stools, black,tarry stools, loose stools, Difficulty Swallowing or other : Negative for hematuria, frequent nighttime urination/ nocturia, erectile dysfunction or abnormal vaginal bleeding Musc Musc: Negative for balance problems, muscle aches/ myalgia, muscle weakness or joint pain Skin Skin: Negative redness, non-healing lesions, rash, unusual bruising, skin ulcer, wounds, jaundice or other Neuro Neuro: Negative for weakness, headache(s), frequent falls, blurry vision, double vision, dizziness, lightheadedness, near syncope, syncope, orthostatic symptoms, confusion, memory loss, restless legs, vertigo, seizures, lack of coordination or other Johny Hematologic/Lymphatic: Negative for easy bleeding, easy bruising, enlarged lymph nodes or other Endo Endo: Negative for fatigue, excessive sweating, cold intolerance, heat intolerance, flushing, increased thirst/drinking, increased hunger, hair loss, hair growth or other Psych Psych: Negative for anxiety, depression, thoughts of harming anyone, thoughts of harming yourself, visual hallucinations, panic attacks or audible hallucinations Allergy Allergy/Immunology: Negative for lip swelling, Negative for tongue swelling, Negative for rash, Negative for throat swelling, Negative for hives Cardiology Exam Const Appearance: cooperative, healthy appearing and no acute distress Nutritional Appearance: well nourished Orientation: alert, oriented x3 and oriented to person Head Head: normal to inspection, atraumatic and normocephalic Nose: external nose normal Face and Sinus: face symmetric Mouth: oral mucosae normal Eyes General: appearance normal, both eyes and all related structures Eyelids: eyelids normal Conjunctivae: conjunctivae normal Pupils: PERRL and normal by confrontation EOM: EOM intact bilaterally Neck Neck: normal visual inspection and full ROM Carotids: normal carotid upstroke Chest Chest inspection: normal inspection of the chest Auscultation: Bilateral: Clear to Auscultation Cardio Palpation: normal PMI Rate: regular rate Rhythm: regular rhythm Heart sounds: S1 normal and S2 normal GI GI: normal to inspection, no hepatosplenomegaly and bowel sounds present Neuro General: alert, oriented x3, awake, CN's II-XI intact bilaterally and moves all extremities Skin Skin: no rashes or lesions noted Extremities Pulses: Normal: Right Femoral Pulse, Left Femoral Pulse, Right Dorsalis Pedis Pulse, Left Dorsalis Pedis Pulse, Right Posterior Tibial Pulse, Left Posterior Tibial Pulse, Right Radial Pulse, Left Radial Pulse Lower Extremity Edema: None: Bilateral Psych Psychological: normal affect Assessment AND Plan 1. Secondary pulmonary arterial hypertension I27.21 Plan 1. Pulmonary hypertension: The patient's pulmonary pressures have markedly improved over her previous echocardiogram in December 2015. Her RVSP was 31 mmHg, and she had trivial tricuspid regurgitation. She is doing well on dialysis via a right subclavian catheter, and is awaiting her right AV fistula to mature. Her blood pressure and heart rate are well controlled and she denies any chest pain or anginal symptoms. Despite her negative stress test in January 2018, her dyspnea on exertion may be an anginal equivalent prickly in a renal dialysis patient who may have calcified coronary artery disease. Her blood pressure is much better controlled at this time I would recommend that she continue her Lopressor as well as her atorvastatin. Should her shortness of breath and dyspnea on exertion worsen, I have a low threshold for diagnostic coronary angiogram as well as a right heart catheterization. In the meantime she will continue medical management. 2. Hyperlipidemia: We are awaiting a repeat lipid profile. Continue Lipitor. Her LDL should be less than 70. 3. Return office in 6-months. This note was generated using a voice recognition system and there may be incorrect words, spelling or punctuation that were not noted when reviewing the office note prior to saving. Plan Detail Other Medications Discontinued: Goals Decrease pain Decrease spasm Decrease inflammation Improve ROM Barriers DDD Lupus Follow Up +6M (Andrew) Coding Level of Care Code Off vis,est,level 3 Diagnoses Secondary pulmonary arterial hypertension I27.21 Coding Level of Care Code Off vis,est,level 3 Diagnoses Secondary pulmonary arterial hypertension I27.21 07/28/18 1335 <Electronically signed by Cesar Roberts MD> Date Cesar Roberts MD Cosigner Signature: Date (if applicable) CC: Mitchell Womack MD OP NOTE Observed: 07/26/2018 Status: F Source: [facility] 4:16 PM SYSTEM REPOSITORY PATIENT: PAVITHRA PAINTER ADMISSION DATE: 07/26/2018 SURGERY DATE: 07/26/2018 DATE OF : 1970 AGE: 47 ADMITTING PHYSICIAN: Cami Lau MD ATTENDING PHYSICIAN: Cami Lau MD DICTATING PHYSICIAN: Cami Lau MD OPERATIVE RECORD Procedure: RIGHT STAGE I BASILIC FISTULA CREATION. Preoperative Diagnosis: End-stage renal disease. Postoperative Diagnosis: End-stage renal disease. Anesthesia: MAC plus regional block. Publicity Director: Leda Louise M.D. 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 She had her left upper extremity dialysis access sacrificed and she presents now with preop vein mapping, revealing a basilic vein on the right, which is of satisfactory size for stage I basilic creation. Description of Procedure: Upon obtaining informed consent and verification of correct patient, procedure, and site, the patient was taken to the preop area where she had a regional block administered by Anesthesia. She was taken to the operating room where she was positioned, prepped, and draped in usual sterile fashion. Time-out was performed. Skin was tested for block efficacy. Ultrasound was used to evaluate the course of the basilic vein as compared to the brachial artery. The patient actually had a very high takeoff of the radial artery all the way up in the axilla and a large dominant ulnar artery that was initially more lateral and then below the elbow on the smaller radial artery and the larger ulnar arteries crossed course and returned to their normal anatomic position. It was felt that the radial artery be the closest for fistula creation and also would help decrease the potential for steal. The basilic vein was satisfactory in caliber down to the antecubital crease where it had antecubital branch that was also large in caliber as was the main basilic was of large in caliber down to the proximal forearm. Transverse incision was made 1 fingerbreadth distal to the antecubital crease. Bovie electrocautery was used to dissect down to the subcutaneous tissue. Self-retaining retractors were put in position. Sharp dissection was then used to dissect free the antecubital vein. Satisfactory caliber, however, was very thin-walled and delicate, it actually tore just with simple manipulation and this required 7-0 Prolene interrupted repair stitches. After satisfactory length was dissected free, we turned our attention to the arterial exposure. Sharp dissection was used to dissect down the level of fascia. The fascia was incised revealing the radial artery. This was dissected free proximal and distal enough for clamping and anastomosis creation. Right angle was used to place a vessel loop proximal and distal. The patient was then heparinized and allowed to circulate for 3 minutes. The antecubital vein was ligated distally in the operative field and divided. The radial artery was then occluded with vessel loops. Longitudinal arteriotomy was created with 11 blade and extended with Ahmadi scissors. The vein was beveled to match the arteriotomy. An end-to-side anastomosis was performed using 6-0 Prolene in running fashion. Prior to completing the suture line, vessels were back bled and lumen flushed with heparinized saline. After completing suture line, clamps were removed. The area that had required repair stitch, continued to have brisk pulsatile bleeding. Multiple repair sutures were placed and this simply tore the vessel as we attempted to repair it. It was felt that this vein was not salvageable for fistula creation. So we then turned our attention to the main basilic vein and dissected more medial on the forearm encountering the basilic vein, which was of satisfactory caliber. This was dissected free proximal and distal enough to reach over to the radial artery. This was then ligated distally and divided. This vein also was fairly thin-walled, but a little more robust in the antecubital branch. This was able to reach over to the radial artery without tension. Rather than redo the anastomosis, we divided the previous fistula vein at the just proximal to where it had the tear. The basilic vein was then anastomosed in interrupted fashion using 7-0 Prolene sutures. Prior to completing suture line, vessels were back bled and the lumen flushed with heparinized saline. After completing suture line, clamps were removed. There was one area that required repair stitch, actually the vein had again torn. This was successfully repaired with a single repair stitch. There was now palpable pulse across the radial artery, across the anastomosis and a palpable thrill in the fistula and palpable radial pulse in the wrist. It was felt that this required no further intervention. There was no further bleeding. Cyndee topical hemostatic was applied. The incision was then closed with 3-0 Vicryl, 4-0 Monocryl, and Dermabond for the skin. At the conclusion of the case, the patient was awakened from anesthesia and taken to the recovery room and anticipate discharge to home. [facility] Job ID: [id number] Cami Lau MD DOD:07/26/2018 04:16 P EJT/dsk DOT:07/26/2018 08:47 P Job Number: [id number] Document Number: [id number] cc: Cami Lau MD [facility] [address] [facility] [address] GLUCOSE,BEDSIDE Collected: 07/26/2018 Status: F Source: [facility] 1:18 PM SYSTEM REPOSITORY TYPE CODE TESTS RESULT OUT OF RANGE REFERENCE UNITS LAB BGLU 70-100 mg/dL Normal 75 Glucose,Beds josé Result Comment: Test performed by glucose meter. Results may be 10%-15% lower than serum/plasma values. (CLIA ID [id number]) Performed By: #### BGLU #### [employer] [place] [address] [place] [address] POTASSIUM Collected: 07/26/2018 Status: F Source: [facility] 10:06 AM SYSTEM REPOSITORY TYPE CODE TESTS RESULT OUT OF RANGE REFERENCE UNITS LAB K3 3.5-5.1 mmol/L Normal Potassium 5.0 Performed By: #### K3 #### [employer] [facility] [address] [place] [address] GLUCOSE,BEDSIDE Collected: 07/26/2018 Status: F Source: [facility] 9:08 AM SYSTEM REPOSITORY TYPE CODE TESTS RESULT OUT OF RANGE REFERENCE UNITS LAB BGLU 70-100 mg/dL Normal 75 Glucose,Beds josé Result Comment: Test performed by glucose meter. Results may be 10%-15% lower than serum/plasma values. (CLIA ID [id number]) Performed By: #### BGLU #### [employer] [facility] [place] [address] CROSSMATCH, FREEZE Collected: 07/11/2018 Status: F Source: [facility] 4:59 PM HOSPITALS REPOSITORY TYPE CODE TESTS RESULT OUT OF REFERENCE UNITS RANGE LAB HLFXM(LOINC ) CROSSMATCH, COMMENT FREEZE Result Comment: SEE SEPARATE REPORT. Performed By: #### HLFXM #### [facility] [address] [place] [address] D-DIMER, HIGH Collected: 06/17/2018 Status: F Source: [facility] SENSITIVITY - UHE 1:12 PM [facility] REPOSITORY TYPE CODE TESTS RESULT OUT OF REFERENCE UNITS RANGE LAB HSDDI <0.50 mcg/mL FEU D-Dimer, High High Sensitivity 2.90 Result Comment: The D-Dimer assay is intended for use in conjuction with a clinical pretest probability (PTP) assessment model to exclude pulmonary embolism (PE) and as an aid in the diagnosis of Deep Vein Thrombosis ( DVT) in outpatients suspected of PE or DVT. For the assay in use at [facility] ([facility]), a cutoff of <0.50 mcg/mL has a Negative Predictive Value of 99.7% for exclusion of DVT in low and moderate PTP patients. Performed By: #### HSDDIE #### [address] [address] #### COMP, IGG, DSDNAB #### [facility] [id number] [place] [address] C3 AND C4 BATTERY Collected: 06/17/2018 Status: F Source: [facility] 1:12 [facility] REPOSITORY TYPE CODE TESTS RESULT OUT OF RANGE REFERENCE UNITS LAB C3 87-200 mg/dL C3 135 LAB C4 18-52 mg/dL C4 39 Performed By: #### HSDDIE #### [address] [address] #### COMP, IGG, DSDNAB #### [facility] [id number] [place] [address] [address] IGG Collected: 06/17/2018 Status: F Source: [facility] 1:12 [facility] REPOSITORY TYPE CODE TESTS RESULT OUT OF RANGE REFERENCE UNITS LAB IGG 600-1714 mg/dL IgG 1449 Performed By: #### HSDDIE #### [address] [address] #### COMP, IGG, DSDNAB #### [facility] [address] [address] [facility] [address] [place] [address] DS DNA, MULTIPLEX Collected: 06/17/2018 Status: F Source: [facility] 1:12 [facility] REPOSITORY TYPE CODE TESTS RESULT OUT OF RANGE REFERENCE UNITS LAB DSDNAT Negative Abnormal DS DNA POSITIVE Antibody LAB DSDNAQ 0-3 IU/mL High DS DNA Ab, 28 Quant Performed By: #### HSDDIE #### [facility] [address] [place], [place] [address] #### COMP, IGG, DSDNAB #### [facility] [address] [place] [address] [facility] [address] [place] [address] CROSSMATCH, FREEZE Collected: 06/10/2018 Status: F Source: [facility] 9:56 AM HOSPITALS REPOSITORY TYPE CODE TESTS RESULT OUT OF REFERENCE UNITS RANGE LAB HLFXM(LOINC ) CROSSMATCH, COMMENT FREEZE Result Comment: SEE SEPARATE REPORT. Performed By: #### HLFXM #### [facility] [address] [place] [address] Observed: 06/09/2018 Status: F Source: [facility] CULTURE, URINE 4:20 PM [facility] RE[facility] Urine Culture There are no CLSI standards for interpretation of this Drug/Organism combination. ORGANISM 1: Lactobacillus species Leonore Count 25,000-50,000 Performed By: #### M100.0650 #### [facility] [address] [facility] [place], [place], [id number] COMPREHENSIVE METABOLIC Collected: 06/09/2018 Status: F Source: [place] PROFIL 2:21 PM [facility] REPOS[facility] TYPE CODE TESTS RESULT OUT OF RANGE REFERENCE UNITS LAB L501.0100 74-106 mg/dL High GLU 112 Result Comment: Fasting Glucose result from 100 to 125 mg/dL suggests IMPAIRED HOMEOSTASIS per A.D.A. criteria. Please note revised GLUCOSE reference range effective 2017. LAB L501.1000 7-18 mg/dL High BUN 50 LAB L501.1100 0.55-1.02 mg/dL High CREAT,SERUM 6.56 Result Comment: The validity of the calculated GFR AND GFRAA in patients over 70 years has not been determined. Clinical correlation is essential. LAB L501.1110 >60 mL/min Low EST GFR 7 Result Comment: Non- GFR Calc LAB L501.1115 >60 mL/min Low EST GFR - AA 9 Result Comment: GFR Calc LAB L501.1300 10-20 RATIO Low BUN/CRE 7.6 LAB L501.1500 6.4-8.2 g/dL Normal T PROT 7.6 LAB L501.1800 3.2-5.0 g/dL Normal ALB 3.3 LAB L501.1950 2.2-4.2 g/dL High GLOB 4.3 LAB L501.2000 0.9-2.4 RATIO Low A/G 0.8 LAB L501.2200 8.5-10.1 mg/dL Low CA 8.2 LAB L501.4100 15-37 U/L High AST 48 Result Comment: Moderate Hemolysis, Result may be falsely increased. LAB L501.4305 45-117 U/L Normal ALK P 91 LAB L501.4405 13-56 U/L Normal ALT 26 LAB L501.4600 0.20-1.00 mg/dL Normal T BILI 0.80 LAB L501.5300 136-145 mmol/L Low NA 132 LAB L501.5600 3.5-5.1 mmol/L Normal K 5.1 Result Comment: Moderate Hemolysis, Result may be falsely increased. LAB L501.5900 98-107 mmol/L Normal CL 99 LAB L501.6100 21.0-32.0 mmol/L Normal CO2 21.0 LAB L501.6200 5-15 Normal GAP 12 Performed By: #### L500.4050, L501.9520 #### [facility] [address] [place], [place], [id number] THYROID STIM HORMONE Collected: 06/09/2018 Status: F Source: [place] (TSH) 2:21 PM [facility] REPOS[facility] TYPE CODE TESTS RESULT OUT OF RANGE REFERENCE UNITS LAB L501.9520 0.358-3.74 uIU/mL Low TSH 0.27 Performed By: #### L500.4050, L501.9520 #### [facility] [address] [place], [place], [id number] CBC W/DIFF, AUTOMATED Collected: 06/09/2018 Status: F Source: [place] 2:21 PM [facility] REPOSITORY TYPE CODE TESTS RESULT OUT OF RANGE REFERENCE UNITS LAB L100.1000 4.4-11.0 K/mm3 Normal WBC 9.2 LAB L100.1200 4.2-5.4 M/mm3 Low RBC 3.26 LAB L100.1300 12.0-15.0 g/dl Low HGB 10.2 LAB L100.1400 37-47 % Low HCT 30.9 LAB L100.1500 81-99 fL Normal MCV 94.8 LAB L100.1600 27.0-32.0 pg Normal MCH 31.3 LAB L100.1700 32-36 g/gl Normal MCHC 33.0 LAB L100.1810 11.6-14.6 % High RDW CV 15.0 LAB L100.1820 35.1-43.9 fl High RDW SD 50.6 LAB L100.1900 150-450 K/mm3 Normal PLT 165 LAB L100.2000 6.2-12.0 fl Normal MPV 10.7 LAB L100.2100 47-70 % High NEUT% 82.6 LAB L100.2200 19-41 % Low LY% 10.3 LAB L100.2300 0-10 % Normal MONO% 6.3 LAB L100.2400 0-5 % Normal EO% 0.3 LAB L100.2500 0-1 % Normal BASO% 0.2 LAB L100.2550 0.0-0.9 % Normal IM GRAN % 0.300 Result Comment: IG% - Immature Granulocytes (promyelocytes, myelocytes and metamyelocytes) > 1% indicates that a LEFT SHIFT is Present. LAB L100.2620 2.0-7.7 X10 3/uL Normal Absolute Neut 7.6 LAB L100.2720 0.83-4.51 X10 3/ul Normal Absolute Lymph 0.94 Performed By: #### L100.0100 #### [facility] [address] [place], [place], [id number] MANAGER DOCUMENT OFFICE VISIT Observed: 06/09/2018 Status: F Source: [facility] REPORT 2:18 PM [facility] [address] [place] [address] OFFICE VISIT Date of Service: 06/09/18 MR#: [id number] Acct: [id number] Name: PAVITHRA PAINTER Rep #: [id number] : 1970 Provider: Desirae Minaya MD Age/Sex: 47/F Location: [facility] Status: Signed Intake Vital Signs06/09/18 Height 5 ft 4 in 06/09/18 Weight: 156 lb 06/09/18 Body Mass Index (BMI) 26.7 06/09/18 Blood Pressure 150/100 H Intake Visit Reasons: follow up Chief Complaint: post op Film Or Tape Librarian Required: No Is patient in pain?: No Allergies NEGRO Inhibitors Allergy (Verified 06/09/18 13:26) Angioedema lisinopril Allergy (Verified 06/09/18 13:26) Angioedema Sulfa (Sulfonamide Antibiotics) Allergy (Verified 06/09/18 13:26) Rash sulfamethoxazole [From Bactrim] Allergy (Verified 06/09/18 13:26) Rash trimethoprim [From Bactrim] Allergy (Verified 06/09/18 13:26) Rash Medications Duloxetine Hcl [Cymbalta] 120 mg PO DAILY 10/01/16 [History Confirmed 06/09/18] Hydroxychloroquine [Plaquenil] 200 mg PO BIDCM 10/01/16 [History Confirmed 06/09/18] Linagliptin [Tradjenta] 5 mg PO DAILY 10/01/16 [History Confirmed 06/09/18] Montelukast [Singulair] 10 mg PO QHS 10/01/16 [History Confirmed 06/09/18] Acyclovir [Zovirax] 400 mg PO TID PRN 10/26/16 [History Confirmed 06/09/18] Ergocalciferol [Vitamin D] 1.25 cap PO QMONTH 01/21/17 [History Confirmed 06/09/18] Amlactin Ultra Body Cream 1 applic TOPICAL DAILY PRN 02/17/17 [History Confirmed 06/09/18] Cevimeline HCl [Evoxac] 30 mg PO TID 02/17/17 [History Confirmed 06/09/18] Estradiol [Estrace] 1 mg PO QHS 09/27/17 [History Confirmed 06/09/18] Sevelamer Carbonate 2,400 mg PO TID 12/09/17 [History Confirmed 06/09/18] metoprolol tartrate 25 mg tablet 25 mg PO BID 01/11/18 [History Confirmed 06/09/18] prednisone 10 mg tablet 5 mg PO DAILYCM tab 01/11/18 [History Confirmed 06/09/18] Acetaminophen [Tylenol Extra Strength] 500 tab BID PRN PRN MDD 1000 01/20/18 [History Confirmed 06/09/18] Atorvastatin Calcium [Lipitor] 20 mg PO QHS 01/20/18 [History Confirmed 06/09/18] Baclofen [Lioresal] 10 mg PO TID 01/20/18 [History Confirmed 06/09/18] Lorazepam [Ativan] 1 mg PO BID 01/20/18 [History Confirmed 06/09/18] Ondansetron HCl [Zofran] 4 mg PO PRN PRN 01/20/18 [History Confirmed 06/09/18] Pregabalin [Lyrica] 50 mg PO BID 01/20/18 [History Confirmed 06/09/18] calcitriol 0.25 mcg capsule 0.25 mcg PO ONCE 05/12/18 [History Confirmed 06/09/18] ciprofloxacin 500 mg tablet 500 mg PO DAILY #3 tab 05/12/18 [Rx Confirmed 06/09/18] clindamycin 1 %-benzoyl peroxide 5 % topical gel 1 applic TOPICAL DAILY 05/12/18 [History Confirmed 06/09/18] dextroamphetamine-amphetamine ER 10 mg 24hr capsule,extend release 15 mg PO BID 05/12/18 [History Confirmed 06/09/18] docusate sodium 100 mg capsule 100 mg PO DAILY 05/12/18 [History Confirmed 06/09/18] famotidine 40 mg tablet 40 mg PO DAILY 05/12/18 [History Confirmed 06/09/18] fluticasone 50 mcg/actuation nasal spray,suspension 2 spray INTRANASAL DAILY 05/12/18 [History Confirmed 06/09/18] Is last menstrual period known: No Post menopausal: No Patient : No : No [facility] Medical History Nonrheumatic mitral (valve) insufficiency (Chronic) Secondary pulmonary arterial hypertension (Chronic) Non-rheumatic tricuspid valve insufficiency (Chronic) End stage renal disease (Chronic) Problem with dialysis access (Acute) Chronic anemia (Chronic) Hypertension (Chronic) Narcolepsy (Chronic) Lupus nephritis (Chronic) Degenerative disc disease, cervical (Chronic) Cervical spondylosis (Chronic) Colitis (Acute) Leukopenia (Acute) Diabetes mellitus, type II (Chronic) SLE (systemic lupus erythematosus) (Chronic) Status post left heart catheterization (Acute) Acute renal failure (Resolved) Chronic kidney disease (Resolved) Dehydration with hyponatremia (Resolved) Hyperkalemia (Resolved) Unresponsiveness (Resolved) Surgical History History of esophagogastroduodenoscopy (EGD) (Acute) Presence of surgically created arteriovenous shunt for hemodialysis (Acute 11/2017) S/P colonoscopy (Acute) S/P lymph node biopsy (Acute) S/P nasal polypectomy (Acute) Status post carpal tunnel release (Acute) Status post insertion of dialysis catheter (Acute) Status post total hip replacement, bilateral (Acute) port removed (Acute) Family History Mother Hypertension Kidney disease ALS (amyotrophic lateral sclerosis) Father Heart disease Hypertension Kidney disease Diabetes Social History Smoking Status: Never smoker second hand exposure: No alcohol intake: never substance use type: does not use caffeine: No what type of physical activity do you participate in: other details: PT seatbelt use: always do you feel safe at home: Yes additional social history: Single HPI follow up: Details: PAVITHRA PAINTER is a 47 year old who presents for postop appointment. she denies any bleeding. she has stopped her hormones Pregancy History 0 Elective abortions Hx Para Spontaneous abortions ROS Const Constitutional: Reports system reviewed and no additional complaints, except as docu GI GI: Denies abdominal pain, nausea, vomiting or cramping Exam Const General: cooperative, healthy appearing, comfortable, no acute distress GI Inspection: normal to inspection Palpation: soft, nontender Assessment AND Plan Problems 1. Post-menopausal bleeding N95.0 Plan recommend routine annuals Plan Detail Goals Decrease pain Decrease spasm Decrease inflammation Improve ROM Barriers DDD Lupus Coding Level of Care Code Off vis,est,level 3 Diagnoses Post-menopausal bleeding N95.0 06/09/18 1418 <Electronically signed by Desirae Minaya MD> Date Desirae Minaya MD Cosigner Signature: Date (if applicable) CC: VENOUS DUPLEX UPPER Observed: 06/02/2018 Status: F Source: [place] EXTREMITY 5:56 PM [facility] Cardiovascular Services [address] [place] [address] Saphenous Vein Mapping, Bilat 06/02/18 1305 MR#: [id number] Acct: [id number] Name: PAVITHRA PAINTER Rep #: [id number] : 1970 47 From: Rigo Valverde MD Attending Dr: Arline Ambriz DO Status: REG CLI Ordering Dr: Arline Ambriz DO Date: 06/02/18 Location: [facility] Sex: F A Admitted: Reason For Study: dependence on renal dialysis Right Arm Left Arm Right cephalic vein is compressible. Cephalic V is compressible proximal to the Right Cephalic Vein at the shoulder antecubital space. measures .220 x .209 cm. Left Cephalic Vein at the shoulder Right Cephalic Vein mid bicep measures .210 measures .269 x .279 cm. x .219 cm. Left Cephalic Vein at mid bicep Right Cephalic Vein above antecub measures .194 x .204 cm. measures .184 x .199 cm. Left Cephalic Vein above antecub Right Cephalic Vein below antecub measures .154 x .130 cm. measures .304 x .314 cm. Limited exam on the left side due to Right Cephalic Vein in the forearm previous failed fistulas. measures .320 x .344 cm. Right Cephalic Vein at the wrist measures .271 x .284 cm. Right basilic vein is compressible. Right Basilic Vein at the origin measures .384 x .370 cm. Right Basilic Vein above antecub measures .348 x .373 cm. Right Basilic Vein below antecub measures .274 x .294 cm. Right Basilic Vein in the forearm measures .219 x .219 cm. Right Basilic Vein at the wrist measures .239 x .234 cm. Brachial art 60.5 cm/s. Brachial art .396 x .383 cm. Radial art 53.4 cm/s. Radial art .180 x .164 cm. Interpretation Summary Patent and compressible right upper extremity cephalic and basilic veins as noted. Small right upper arm cephalic vein. Adequate right brachial artery and very small right radial artery. Small left upper arm cephalic vein. Limited left upper extremity evaluation. 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 [place] [address] Fax REHABILITATION SERVICES DISCHARGE SUMMARY MR#: [id number] Acct: [id number] Name: PAVITHRA PAINTER Rep #: [id number] : 1970 47 From: Chana Monique Referring Dr.: Mitchell Womack MD Status: REG RCR Eval Date: Discharge Date: HP - OT D/C Summary It has been my pleasure to treat PAVITHRA PAINTER under orders from Mitchell Womack, for the diagnosis of Radial Head Fx for a total of 11 visit(s). Please see the following information for a summary of their discharge status. - Overall Improvement % Improvement: 87 - Objective Objective/Function: ROM is WFL and edema is significantly decreased since removed of fistula in LUE. Strength assessment completed on this date: security advisor flexed position R 95, L 62; security advisor ext position R 78, L 75; lateral R 16, L 15; tripod R 16, L 14; tip pinch R 10, L 10 lbs. Completed monofilament for sensory testing and measurements as follows: 2 ndR 3.61, L 3.84. 3rd R 3.84, L 3.84. 4th R 3.84, L 3.61. 5th R 2.83, L 3.81. thumb R 3.84, L 2.83. Some sensory impairment noted but does have neuropathy in feet and has already had CTS release in B hands. - Goals Patient Goals: Regain Mobility, Regain Strength, Decrease Pain, Return to Work, Decrease Swelling/Stiffness, Improve Fine Motor Skills, Use Hand/Wrist/Arm Normally Again, Sleep Better, Increase ROM, Be More Independent in ADLS, Resume Former Household Responsibilities (Cooking,Cleaning,Yard, etc.), Resume Hobbies Goal:: Pavithra in to increase L security advisor by 10-15 lbs to promote increased ability to maniplate with L UE 4/5 trials 80% of the time to promote increased ability to return to PLOF by d/c. Goal:: Pavithra to use pain management techniques to have no more than 1-2/10 during ADL/AIDls 4/ 5 trials 80% of the time to return to PLOF by d/c. Goal:: Pavithra to complete compensations for sensory deficits e.g. use of vision to promote safety and decrease dropping self care items 4 5 trials 80% of the time by d/c. Goal:: Pavithra to be mod I to complete joint protection and energy conservations techniques to return to progressively using L UE for ADL/IAdls 4/5 trials 80% of th time by d/c. Goal:: Pavithra to return to all ADl/IAdls with L UE with minimal pain 4/ 5trials 80% of the time by d/c. - Plan Plan: She is doing well and was kept on caseload to determine if she wanted to get prefabricated custom compress garment for LUE due to edema from fistula placement. Since fistula has been removed edema has decreased significantly and she is back to PLOF with most tasks. Due to recent fistula removed of L UE she has 10 lbs lifting restriction which does limit some participation in ADL/IADL s but as she recovered from surgery will continue to progress. She will be d/c'd at this time. - D/C Information If there are questions or concerns regarding this patient's occupational therapy, please fell free to call me at [phone]. Thank you for the referral of this patient. Sincerely, Chana Monique <Electronically signed by Chana Monique > 06/02/18 1656 CC: Mitchell Womack MD KMB Signed PT D/C SUMMARY (1) Observed: 05/24/2018 Status: F Source: [place] 3:14 PM [facility] Physical Therapy [facility] [address] [place] [address] Fax REHABILITATION SERVICES DISCHARGE SUMMARY MR#: [id number] Acct: [id number] Name: PAVITHRA PAINTER Rep #: [id number] : 1970 47 From: Maureen Solis PT, Cert. MDT Referring Dr.: Mitchell Womack MD Status: REG RCR Insurance: MEDICARE PART A B MEDICAID HP - PT D/C Summary It has been my pleasure to treat PAVITHRA PAINTER under orders from Mitchell Womack, for the diagnosis of DEBILITY for a total of 17 visit(s). Discharge Date: 05/24/18 Please see the following information for a summary of their discharge status. - Subjective Subjective: PATIENT REPORTS SHE IS STRONGER AND HER STAMINA AND HER ENDURANCE IS BETTER SINCE STARTING PT. SHE ALSO REPORTS HER BALANCE HAS IMPROVED WITH THERAPY. SHE REPORTS SHE IS WORKING ON HER HOME EX PROGRAM AND SHE IS APPLYING FOR SCHOLARSHIP/LOWER RATES AT THE [employer] TO SEE IF SHE CAN GET MEMBERSHIP THERE. PATIENT REPORTS THEY TIED OFF HER FISTULA IN HER LUE AND HER FX HEALED. SHE REPORTS THEY ARE LOOKING AT PUTTING A FISTULA IN HER RIGHT UE. PATIENT REPORTS SHE CURRENTLY HAS A 10 LB LIFITNG LIMIT ON HER LEFT UE. SHE REPORTS THE ONE THING SHE WOULD LIKE TO WORK MORE ON IS HER NECK AND UPPER BACK STRENGTH. - Pain Neck and Shoulder Pain Intensity (Out of 10): 5 Back Pain Intensity (Out of 10): 4 bilat. knees Pain Intensity (Out of 10): 2 - Overall Improvement % Improvement: 80 - Objective Objective/Function: ALL PT GOALS HAVE BEEN MET. PATIENT DOES SEEM TO STRUGGLE WITH COMPLIANCE WITH HEP THOUGH. HER REPORTING THAT SHE IS PURSING [employer] MEMBERSHIP IS A SIGN OF HER MOTIVATION TO TRY TO BE COMPLIANT WITH INDEP EX. UPON EXAM: Sitting Posture: FAIR. Standing Posture: FAIR. PATIENT HAS MUCH BETTER POSTURE CONTROL IN SITTING, STANDING AND WALKING AND VOICES THAT SHE HAS BEEN WORKING ON IT. Postural strength: FAIR. Other Observations: INDEP GAIT INTO PT WITH GOOD CADANCE AND WITHOUT AD AND NO LOB OR SOB. INDEP TRANSFER SIT TO STAND WITHOUT UE ASSIST. Motor deficit: SHAN LE STRENGTH GROSSLY 4-5/5 WITH MMT'ING. ROM deficit: SHAN LE'S WFL. Lumbar mvmt loss: flex - NIL. ext - MOD TO ALBERTO. R SG - MIN. L SG - MIN. Core strength: FAIR. Cervical Mvmt Loss: CERVICAL ROM IS WFL ALL PLANES. OTHER: PATIENT IS ABLE TO SLS ON EACH LEG WITHOUT UE ASSIST X > 20 SECONDS EACH. SHE IS ABLE TO BALANCE BETTER ON HER RIGHT LE THAN LEFT. SHE REPORTS SHE RECENTLY GOT ORTHOTICS AND HER LEFT FOOT IS STILL GIVING HER TROUBLE. LEFS HAS IMPROVED FROM 36 TO 43 SINCE LAST RE-CHECK. PATIENT IS APPROPRIATE FOR DISCHARGE TO INDEP HEP AT THIS TIME AND TO PURSUE [employer] MEMBERSHIP. PATIENT IS STILL IN OCCUPATIONAL THERAPY WITH APPOINTMENTS PENDING. - Goals Goal 1:: INDEP AND SAFE GAIT ON ALL SURFACES WITH LEAST ASSISTIVE DEVICE X 1600 FEET WITH MILD SOB. Goal Progress: Goal Met Goal 2:: INDEP HEP FOR GENERAL UPPER AND LOWER BODY STRENGTHEING FOR CONTINUED IMPROVEMENT ONCE FORMAL PT CONCLUDES. Goal Progress: Goal Met - Plan Plan: D/C - PATIENT IS AGREEABLE. WE WOULD BE HAPPY TO RESUME PT IN THE FUTURE NEEDED/INDICATED. - D/C Information If there are questions or concerns regarding this patient's physical therapy, please feel free to call me at [phone]. Thank you for the referral of this patient. Sincerely, Maureen Solis <Electronically signed by Maureen Solis PT, Cert. MDT> 05/24/18 1514 CC: Mitchell Womack MD LUCILA Signed 12 LEAD ELECTROCARDIOGRAM Observed: 05/24/2018 Status: F Source: [place] 1:37 PM [facility] Cardiovascular Services [address] [place] [address] 12 Lead EKG 05/18/18 1604 MR#: [id number] Acct: [id number] Name: PAVITHRA PAINTER Rep #: [id number] : 1970 47 From: Cesar Roberts MD Attending Dr: Desirae Minaya MD Status: DEP [facility] Ordering Dr: Desirae Minaya MD Date: 05/18/18 Location: [facility] Sex: F A Admitted: Test Reason : PRE OP Blood Pressure : / mmHG Vent. Rate : 097 BPM Atrial Rate : 097 BPM P-R Int : 148 ms QRS Dur : 086 ms QT Int : 382 ms P-R-T Axes : 050 039 079 degrees QTc Int : 485 ms AGE AND GENDER SPECIFIC ECG ANALYSIS Normal sinus rhythm ST elevation consider inferior injury or acute infarct Prolonged QT Abnormal ECG Confirmed by CESAR ROBERTS ([id number]), editor map CESAR SIMEON ([id number]) on 05/24/2018 1:36:42 PM Referred By: Desirae Minaya Confirmed By:CESAR ROBERTS 05/24/18 1336 Date Cesar Roberts MD CC: Desirae Minaya MD; Mitchell Womack MD Signed GLUCOSE,BEDSIDE Collected: 05/20/2018 Status: F Source: [facility] 5:19 PM SYSTEM REPOSITORY TYPE CODE TESTS RESULT OUT OF RANGE REFERENCE UNITS LAB BGLU 70-100 mg/dL High 107 Glucose,Beds josé Result Comment: Test performed by glucose meter. Results may be 10%-15% lower than serum/plasma values. (CLIA ID [id number]) Performed By: #### BGLU #### [employer] [facility] [address] [place] [address] GLUCOSE,BEDSIDE Collected: 05/20/2018 Status: F Source: [facility] 4:31 PM SYSTEM REPOSITORY TYPE CODE TESTS RESULT OUT OF RANGE REFERENCE UNITS LAB BGLU 70-100 mg/dL Normal 84 Glucose,Beds josé Result Comment: Test performed by glucose meter. Results may be 10%-15% lower than serum/plasma values. (CLIA ID [id number]) Performed By: #### BGLU #### [employer] [address] [place] [phone] GLUCOSE,BEDSIDE Collected: 05/20/2018 Status: F Source: [facility] 4:11 PM SYSTEM REPOSITORY TYPE CODE TESTS RESULT OUT OF RANGE REFERENCE UNITS LAB BGLU 70-100 mg/dL Low 56 Glucose,Beds josé Result Comment: Test performed by glucose meter. Results may be 10%-15% lower than serum/plasma values. (CLIA ID [id number]) Performed By: #### BGLU #### [employer] [address] [place] [phone] CREATININE Collected: 05/20/2018 Status: F Source: [facility] 11:55 AM SYSTEM REPOSITORY TYPE CODE TESTS RESULT OUT OF REFERENCE UNITS RANGE LAB CRET3 0.52-1.25 mg/dL High Creatinine 8.83 LAB GF3BR >60 mL/min eGFR 5.9 LAB GF3WR >60 mL/min eGFR OTHER 4.8 Result Comment: Source- MDRD equation with creatinine calibration to IDMS(NKDEP) eGFR not recommended for drug dose adjustment Performed By: #### CRTN3, K3 #### [employer] [address] [place] [phone] POTASSIUM Collected: 05/20/2018 Status: F Source: [facility] 11:55 AM SYSTEM REPOSITORY TYPE CODE TESTS RESULT OUT OF RANGE REFERENCE UNITS LAB K3 3.5-5.1 mmol/L Normal Potassium 5.1 Performed By: #### CRTN3, K3 #### [employer] [address] [place] [phone] GLUCOSE,BEDSIDE Collected: 05/20/2018 Status: F Source: [facility] 11:39 AM SYSTEM REPOSITORY TYPE CODE TESTS RESULT OUT OF RANGE REFERENCE UNITS LAB BGLU 70-100 mg/dL Normal 77 Glucose,Beds josé Result Comment: Test performed by glucose meter. Results may be 10%-15% lower than serum/plasma values. (CLIA ID [id number]) Performed By: #### BGLU #### [employer] [address] [place] [phone] DISCHARGE INSTRUCTION Observed: 05/19/2018 Status: F Source: [place] 10:30 AM [facility] Medical Records Department [address] [place] [address] Instructions for Home/Discharge Instructions 05/19/18 1029 MR#: [id number] Acct: [id number] Name: PAVITHRA PAINTER Rep #: [id number] : 1970 47 From: Desirae Minaya MD PCP: Mitchell Womack MD, Chi Status: REG [facility] Discharge Diet: No Restrictions Discharge Activity: Return to Normal Activity, May Shower, May Take a Tub Bath Allergies/Adverse Reactions: Allergies NEGRO Inhibitors Allergy (Verified 05/19/18 09:00) Angioedema lisinopril Allergy (Verified 05/19/18 09:00) Angioedema Sulfa (Sulfonamide Antibiotics) Allergy (Verified 05/19/18 09:00) Rash sulfamethoxazole [From Bactrim] Allergy (Verified 05/19/18 09:00) Rash trimethoprim [From Bactrim] Allergy (Verified 05/19/18 09:00) Rash Medications to take at Discharge Duloxetine Hcl [Cymbalta] 120 mg PO DAILY 10/01/16 Hydroxychloroquine [Plaquenil] 200 mg PO BIDCM 10/01/16 Linagliptin [Tradjenta] 5 mg PO DAILY 10/01/16 Montelukast [Singulair] 10 mg PO QHS 10/01/16 Acyclovir [Zovirax] 400 mg PO TID PRN 10/26/16 Ergocalciferol [Vitamin D] 1.25 cap PO QMONTH 01/21/17 Amlactin Ultra Body Cream 1 applic TOPICAL DAILY PRN 02/17/17 Cevimeline HCl [Evoxac] 30 mg PO TID 02/17/17 Estradiol [Estrace] 1 mg PO QHS 09/27/17 Sevelamer Carbonate 2,400 mg PO TID 12/09/17 metoprolol tartrate 25 mg tablet 25 mg PO BID 01/11/18 prednisone 10 mg tablet 5 mg PO DAILYCM tab 01/11/18 Acetaminophen [Tylenol Extra Strength] 500 tab BID PRN PRN MDD 1000 01/20/18 Atorvastatin Calcium [Lipitor] 20 mg PO QHS 01/20/18 Baclofen [Lioresal] 10 mg PO TID 01/20/18 Lorazepam [Ativan] 1 mg PO BID 01/20/18 Ondansetron HCl [Zofran] 4 mg PO PRN PRN 01/20/18 Pregabalin [Lyrica] 50 mg PO BID 01/20/18 calcitriol 0.25 mcg capsule 0.25 mcg PO ONCE 05/12/18 ciprofloxacin 500 mg tablet 500 mg PO DAILY #3 tab 05/12/18 clindamycin 1 %-benzoyl peroxide 5 % topical gel 1 applic TOPICAL DAILY 05/12/18 dextroamphetamine-amphetamine ER 10 mg 24hr capsule,extend release 15 mg PO BID 05/12/18 docusate sodium 100 mg capsule 100 mg PO DAILY 05/12/18 famotidine 40 mg tablet 40 mg PO DAILY 05/12/18 fluticasone 50 mcg/actuation nasal spray,suspension 2 spray INTRANASAL DAILY 05/12/18 Primary Care Physician: Mitchell Womack Chi, MD [Primary Care Provider] - Test Results: Test results from this visit will be discussed in further detail at your follow-up appointment, if applicable. Please Follow Up With: Desirae Minaya MD - [phone] 05/19/18 1030 <Electronically signed by Desirae Minaya MD> Date Desirae Minaya MD CC: Mitchell Womack MD OPERATIVE REPORT Observed: 05/19/2018 Status: F Source: [place] 10:29 AM [facility] Medical Records Department [address] [place] [address] Operative Report 05/19/18 1027 MR#: [id number] Acct: [id number] Name: PAVITHRA PAINTER Rep #: [id number] : 1970 47 From: Desirae Minaya MD PCP: Mitchell Womack MD, Chi Status: REG SD Y Location: [place] [address] Problem List (1) Postmenopausal bleeding Status: Acute Report of Operation Date of Procedure: 05/19/18 Pre-Operative Diagnosis: Postmenopausal bleeding Post-Operative Diagnosis: Same Surgery/Procedure Performed:: D AND C hysteroscopy Description of Surgical Findings:: Atrophic lining Type of Anesthesia:: Local MAC Special Medications: None Specimen's removed: Endometrial curettings Drains: [place] Estimated Blood Loss (mL): Minimal Fluids Replaced: Crystalloid Description of Procedure: Patient was prepped and draped in a normal sterile fashion under MAC anesthesia. A weighted speculum was placed in the vagina and the anterior lip of the cervix was grasped with a single-tooth tenaculum. A paracervical block was placed with 1% lidocaine. Cervix was progressively dilated to allow passage of a 5 mm hysteroscope. The lining was fully visualized and noted to have an atrophic lining. Uterine sounded to 7 cm. Curettage was performed and minimal amount of tissue was removed, sent to pathology. All instruments were removed from the vagina and excellent hemostasis was noted. Patient was awoken and taken to recovery in stable condition. Grafts/Implants Used: None - Complications None 05/19/18 1029 <Electronically signed by Desirae Minaya MD> Date Desirae Minaya MD CC: Desirae Minaya MD; Mitchell Womack MD Signed HISTORY AND PHYSICAL Observed: 05/19/2018 Status: F Source: [place] EXAM 9:12 AM [facility] Medical Records Department [address] [place] [id number] History and Physical 05/18/18 1725 MR#: [id number] Acct: [id number] Name: PAVITHRA PAINTER Rep #: [id number] : 1970 47 From: Desirae Minaya MD PCP: Mitchell Womack MD, Chi Status: [facility] Y Location: [place] [address] Problem List (1) Postmenopausal bleeding Status: Acute History of Present Illness Date of Admission: 05/19/18 Chief Complaint: abnormal vaginal bleeding The patient is a 47 year old F presents with irregular vaginal bleeding- previously postmenopausal. she has been on estrogen and progesterone HRT but she stopped taking the progesterone for a while, and then now has still been taking estrogen. she has had trouble scheduling surgery due to chronic kidney disease. Past Medical History Past Medical History (Chronic Problems): Chronic Problems (Last Reviewed 05/12/18 @ 15:51 by Debora Sepulveda) Nonrheumatic mitral (valve) insufficiency (Chronic) Secondary pulmonary arterial hypertension (Chronic) Non-rheumatic tricuspid valve insufficiency (Chronic) End stage renal disease (Chronic) Chronic anemia (Chronic) Hypertension (Chronic) Narcolepsy (Chronic) Lupus nephritis (Chronic) Status post kidney and liver biopsy (fatty liver) Degenerative disc disease, cervical (Chronic) Cervical spondylosis (Chronic) Diabetes mellitus, type II (Chronic) SLE (systemic lupus erythematosus) (Chronic) Medical History: Medical History (Last Reviewed 05/12/18 @ 15:51 by Debora Sepulveda) Nonrheumatic mitral (valve) insufficiency (Chronic) I34.0 Secondary pulmonary arterial hypertension (Chronic) I27.21 Non-rheumatic tricuspid valve insufficiency (Chronic) I36.1 End stage renal disease (Chronic) N18.6 Problem with dialysis access (Acute) T82.898A Chronic anemia (Chronic) D64.9 Hypertension (Chronic) I10 Narcolepsy (Chronic) G47.419 Lupus nephritis (Chronic) M32.14 Status post kidney and liver biopsy (fatty liver) Degenerative disc disease, cervical (Chronic) M50.30 Cervical spondylosis (Chronic) M47.812 Colitis (Acute) Leukopenia (Acute) D72.819 Diabetes mellitus, type II (Chronic) E11.9 SLE (systemic lupus erythematosus) (Chronic) M32.9 Status post left heart catheterization Z98.890 Acute renal failure (Resolved) Chronic kidney disease (Resolved) N18.9 Dehydration with hyponatremia (Resolved) E87.1 Hyperkalemia (Resolved) E87.5 Unresponsiveness (Resolved) R41.89 Allergies NEGRO Inhibitors Allergy (Verified 05/12/18 15:42) Angioedema lisinopril Allergy (Verified 05/12/18 15:42) Angioedema Sulfa (Sulfonamide Antibiotics) Allergy (Verified 05/12/18 15:42) Rash sulfamethoxazole [From Bactrim] Allergy (Verified 05/12/18 15:42) Rash trimethoprim [From Bactrim] Allergy (Verified 05/12/18 15:42) Rash Home Medications: Ambulatory Orders Medication Instructions Recorded Duloxetine Hcl [Cymbalta] 120 mg PO DAILY 10/01/16 Surgical History: Surgical History (Last Reviewed 05/12/18 @ 15:51 by Debora Sepulveda) History of esophagogastroduodenoscopy (EGD) Z98.890 Presence of surgically created arteriovenous shunt for hemodialysis Onset Date: 11/2017 Z99.2 S/P colonoscopy Z98.890 S/P lymph node biopsy Z98.890 S/P nasal polypectomy Z98.890 Status post carpal tunnel release Z98.890 Status post insertion of dialysis catheter Z95.828, Z99.2 Status post total hip replacement, bilateral Z96.643 port removed Surgical History: - Psychiatric History: Depression 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 Smoking Status: Never smoker - *Family History Maternal Family History: Family History (Last Updated 05/12/18 @ 15:52 by Debora Sepulveda) Mother Hypertension Kidney disease ALS (amyotrophic lateral sclerosis) Father Heart disease Hypertension Kidney disease Diabetes History Items: Diabetes, High Cholesterol, Heart Disease, Hypertension, Renal Disease, - Paternal Family History: Family History (Last Updated 05/12/18 @ 15:52 by Debora Sepulveda) Mother Hypertension Kidney disease ALS (amyotrophic lateral sclerosis) Father Heart disease Hypertension Kidney disease Diabetes History Items: Diabetes, High Cholesterol, Heart Disease, Hypertension, Renal Disease Sibling Family History: Family History (Last Updated 05/12/18 @ 15:52 by Debora Sepulveda) Mother Hypertension Kidney disease ALS (amyotrophic lateral sclerosis) Father Heart disease Hypertension Kidney disease Diabetes History Items: Diabetes Review of Systems Constitutional: Denies: Fever, Malaise Eyes: Denies: Blurred vision, Vision Change HEENT: Denies: Head Aches, Visual Changes Cardiovascular: Denies: Chest Pain, Palpitations Respiratory: Denies: Cough, Shortness of Breath, Wheezing Gastrointestinal: Denies: Abdominal Pain, Diarrhea, Nausea, Vomiting Genitourinary: Reports: Dysuria Musculoskeletal: Denies: Joint Pain, Muscle pain Skin: Denies: Lesions, Rash Neurological: Denies: Blurred vision, Focal weakness, Headaches Psychiatric: Denies: Anxiety, Depression Endocrine: Denies: Heat/ Cold Intolerance Hematologic/ Lymphatic: Denies: Easy Bruising, Easy Bleeding VTE Information - Inpt Only VTE Present on Admission: No - Physical Exam General: Alert, Oriented x3, Cooperative HEENT: Atraumatic Neck: Supple, Trachea Midline, Thyroid Normal Size and Texture Lungs: Normal air movement Cardiovascular: Regular rate Abdomen: Soft Extremities: No edema Finger Stick Blood Glucose 77 Laboratory Tests Past 24 Hrs WBC Pending RBC Pending Hgb Pending Hct Pending MCV Pending MCH Pending MCHC Pending RDW Pending RDW Differential Pending Assessment/Plan All Active Problems (Last Reviewed 05/12/18 @ 15:51 by Debora Sepulveda) Postmenopausal bleeding (Acute) Problem with dialysis access (Acute) Segmental and somatic dysfunction of lumbar region (Acute) Segmental and somatic dysfunction of thoracic region (Acute) Segmental and somatic dysfunction of cervical region (Acute) Preop cardiovascular exam (Acute) Problem with dialysis access (Acute) Colitis (Acute) Leukopenia (Acute) Acute renal failure (Resolved) Chronic kidney disease (Resolved) Dehydration with hyponatremia (Resolved) Hyperkalemia (Resolved) Unresponsiveness (Resolved) 47 yo with postmenopausal bleeding plan d and c hysteroscopy after medical clearance obtained. severe renal failure on dialysis. discussed surgical risks including risks of anesthesia, infection, bleeding, injury to bowel, bladder or blood vessels, and patient wishes to proceed with surgery. 05/19/18911 <Electronically signed by Desirae Minaya MD> Date Desirae Minaya MD Cosign Signature: Date (if applicable) CC: Desirae Minaya MD; Mitchell Womack MD Signed BEDSIDE GLUCOSE Collected: 05/19/2018 Status: F Source: [place] 9:11 AM [facility] [place] TYPE CODE TESTS RESULT OUT OF RANGE REFERENCE UNITS LAB L501.080 70-110 mg/dL Normal BEDSIDE GLU 79 Result Comment: MANAGEMENT OF PATIENT CARE PER NURSING PROTOCOL Performed By: #### L501.080 #### Laboratory [place] [address] ENDOMETRIAL BX/CURETTINGS Observed: 05/19/2018 Status: F Source: [place] 12:00 AM [facility] [place] Patient: PAVITHRA PAINTER : 1970 (47/F) Acct Num: [id number] Phys: Rei GARCIA,Desirae Unit Num: [id number] Loc: [facility] [place] Specimen: [id number] Received: 05/19/18 - 1458 Spec Type: ENDOM BX/C TISSUES TISSUES: Endometrium, NOS GROSS DESCRIPTION Received in fixative is one container labeled with the patient's name and designated endometrial curettings. The specimen consists of multiple irregular fragments of pink-red soft tissue mixed with mucoid tissue that in aggregate measure 2 x 2.5 x 0.3 cm. The entire specimen is submitted in one cassette. / RANJITH:carly 05/19/18 TC:4 CPT: 53226 HEADER OPERATION: Hysteroscopy, dilation and curettage PRE-OP DIAGNOSIS: Postmenopausal bleeding TISSUE SUBMITTED: Endometrial curettings MICROSCOPIC DESCRIPTION Slides are reviewed. MICROSCOPIC DIAGNOSIS Endometrial curettings: Superficial fragments of inactive endometrial tissue. Fragments of benign ectocervical epithelium, blood and mucous. RANJITH:carly 05/20/18 Signed Gage Hernandez 05/20/18 <signature on file> Performed By: #### PEMB #### Laboratory [facility] [address] [place], [place], [address] CBC-COMPLETE BLOOD CNT Collected: 05/18/2018 Status: F Source: [place]AMELA NO DIFF 4:19 PM [facility] [place] TYPE CODE TESTS RESULT OUT OF RANGE REFERENCE UNITS LAB L100.1000 4.4-11.0 K/mm3 Normal WBC 8.8 LAB L100.1200 4.2-5.4 M/mm3 Low RBC 3.92 LAB L100.1300 12.0-15.0 g/dl Low HGB 11.9 LAB L100.1400 37-47 % Normal HCT 38.6 LAB L100.1500 81-99 fL Normal MCV 98.5 LAB L100.1600 27.0-32.0 pg Normal MCH 30.4 LAB L100.1700 32-36 g/gl Low MCHC 30.8 LAB L100.1810 11.6-14.6 % High RDW CV 15.7 LAB L100.1820 35.1-43.9 fl High RDW SD 56.8 LAB L100.1900 150-450 K/mm3 Normal PLT 167 LAB L100.2000 6.2-12.0 fl Normal MPV 10.6 Performed By: #### L100.0500 #### Laboratory [address] [place], [place], [address] BASIC METABOLIC Collected: 05/18/2018 Status: F Source: [place] PROFILE (BMP) 4:19 PM [facility] [place] TYPE CODE TESTS RESULT OUT OF RANGE REFERENCE UNITS LAB L501.0100 74-106 mg/dL High GLU 210 Result Comment: Glucose result greater than or equal to 200 mg/dL suggests DIABETES MELLITUS per A.D.A. criteria. Please note revised GLUCOSE reference range effective 2017. LAB L501.1000 7-18 mg/dL High BUN 30 LAB L501.1100 0.55-1.02 mg/dL High CREAT,SERUM 4.56 Result Comment: The validity of the calculated GFR AND GFRAA in patients over 70 years has not been determined. Clinical correlation is essential. LAB L501.1110 >60 mL/min Low EST GFR 11 Result Comment: Non- GFR Calc LAB L501.1115 >60 mL/min Low EST GFR - AA 13 Result Comment: GFR Calc LAB L501.1300 10-20 RATIO Low BUN/CRE 6.6 LAB L501.2200 8.5-10.1 mg/dL Low CA 7.9 LAB L501.5300 136-145 mmol/L Low NA 135 LAB L501.5600 3.5-5.1 mmol/L Normal K 4.0 LAB L501.5900 98-107 mmol/L Low CL 96 LAB L501.6100 21.0-32.0 mmol/L Normal CO2 27.0 LAB L501.6200 5-15 Normal GAP 12 Performed By: #### L500.2500 #### Laboratory [address] [place], [address] TYPE AND SCREEN Collected: 05/18/2018 Status: F Source: [place]EL[place] 4:19 PM [facility] [place] Order Comment: Surgery Date: 05/19/18 Hx of Preganancy in last 3 Months No Ever experience any problems with transfusion(s)? N Hx of Transfusion in last 3 Months N Reason for Type AND Screen/Red Cells: SURGERY SURGICAL PROCEDURE: 21656 TYPE CODE TESTS RESULT OUT OF RANGE REFERENCE UNITS LAB B10.0800 Test Normal BLOOD TYPE GEL not performed LAB B100.4000 Normal Antibody NEGATIVE Screen Performed By: #### B101.7475 #### Laboratory [address] [place], [address] ABORH BLOOD TYPE, Collected: 05/18/2018 Status: F Source: PAMELA PATIENT 4:19 PM [facility] [place] TYPE CODE TESTS RESULT OUT OF RANGE REFERENCE UNITS LAB B100.1300 A Normal BLOOD POSITIVE TYPE PT Performed By: #### B100.0000 #### Laboratory [address] [place], [address] MANAGER DOCUMENT OFFICE VISIT Observed: 05/18/2018 Status: F Source: [place] REPORT 6:22 AM [facility] [place] [facility] [address] [place] [address] OFFICE VISIT Date of Service: 05/12/18 MR#: [id number] Acct: [id number] Name: PAVITHRA PAINTER Rep #: [id number] : 1970 Provider: Desirae Minaya MD Age/Sex: 47/F Location: [facility] [place] Status: Signed Intake Vital Signs05/12/18 Height 5 ft 4 in 05/12/18 Weight: 151 lb 4 oz 05/12/18 Body Mass Index (BMI) 25.9 05/12/18 Blood Pressure 156/104 Intake Visit Reasons: D AND C Film Or Tape Librarian Required: No Is patient in pain?: No Allergies NEGRO Inhibitors Allergy (Verified 05/12/18 15:42) Angioedema lisinopril Allergy (Verified 05/12/18 15:42) Angioedema Sulfa (Sulfonamide Antibiotics) Allergy (Verified 05/12/18 15:42) Rash sulfamethoxazole [From Bactrim] Allergy (Verified 05/12/18 15:42) Rash trimethoprim [From Bactrim] Allergy (Verified 05/12/18 15:42) Rash Medications Duloxetine Hcl [Cymbalta] 120 mg PO DAILY 10/01/16 [History Confirmed 05/12/18] Hydroxychloroquine [Plaquenil] 200 mg PO BIDCM 10/01/16 [History Confirmed 05/12/18] Linagliptin [Tradjenta] 5 mg PO DAILY 10/01/16 [History Confirmed 05/12/18] Montelukast [Singulair] 10 mg PO QHS 10/01/16 [History Confirmed 05/12/18] Acyclovir [Zovirax] 400 mg PO TID PRN 10/26/16 [History Confirmed 05/12/18] Ergocalciferol [Vitamin D] 1.25 cap PO QMONTH 01/21/17 [History Confirmed 05/12/18] Amlactin Ultra Body Cream 1 applic TOPICAL DAILY PRN 02/17/17 [History Confirmed 05/12/18] Cevimeline HCl [Evoxac] 30 mg PO TID 02/17/17 [History Confirmed 05/12/18] Estradiol [Estrace] 1 mg PO QHS 09/27/17 [History Confirmed 05/12/18] Sevelamer Carbonate 2,400 mg PO TID 12/09/17 [History Confirmed 05/12/18] metoprolol tartrate 25 mg tablet 25 mg PO BID 01/11/18 [History Confirmed 05/12/18] prednisone 10 mg tablet 5 mg PO DAILYCM tab 01/11/18 [History Confirmed 05/12/18] Acetaminophen [Tylenol Extra Strength] 500 tab BID PRN PRN MDD 1000 01/20/18 [History Confirmed 05/12/18] Atorvastatin Calcium [Lipitor] 20 mg PO QHS 01/20/18 [History Confirmed 05/12/18] Baclofen [Lioresal] 10 mg PO TID 01/20/18 [History Confirmed 05/12/18] Lorazepam [Ativan] 1 mg PO BID 01/20/18 [History Confirmed 05/12/18] Ondansetron HCl [Zofran] 4 mg PO PRN PRN 01/20/18 [History Confirmed 05/12/18] Pregabalin [Lyrica] 50 mg PO BID 01/20/18 [History Confirmed 05/12/18] calcitriol 0.25 mcg capsule 0.25 mcg PO ONCE 05/12/18 [History Confirmed 05/12/18] ciprofloxacin 500 mg tablet 500 mg PO DAILY #3 tab 05/12/18 [Rx] clindamycin 1 %-benzoyl peroxide 5 % topical gel 1 applic TOPICAL DAILY 05/12/18 [History Confirmed 05/12/18] dextroamphetamine-amphetamine ER 10 mg 24hr capsule,extend release 15 mg PO BID 05/12/18 [History Confirmed 05/12/18] docusate sodium 100 mg capsule 100 mg PO DAILY 05/12/18 [History Confirmed 05/12/18] famotidine 40 mg tablet 40 mg PO DAILY 05/12/18 [History Confirmed 05/12/18] fluticasone 50 mcg/actuation nasal spray,suspension 2 spray INTRANASAL DAILY 05/12/18 [History Confirmed 05/12/18] Post menopausal: No Patient : No : No PFSH Medical History Nonrheumatic mitral (valve) insufficiency (Chronic) Secondary pulmonary arterial hypertension (Chronic) Non-rheumatic tricuspid valve insufficiency (Chronic) End stage renal disease (Chronic) Problem with dialysis access (Acute) Chronic anemia (Chronic) Hypertension (Chronic) Narcolepsy (Chronic) Lupus nephritis (Chronic) Degenerative disc disease, cervical (Chronic) Cervical spondylosis (Chronic) Colitis (Acute) Leukopenia (Acute) Diabetes mellitus, type II (Chronic) SLE (systemic lupus erythematosus) (Chronic) Status post left heart catheterization (Acute) Acute renal failure (Resolved) Chronic kidney disease (Resolved) Dehydration with hyponatremia (Resolved) Hyperkalemia (Resolved) Unresponsiveness (Resolved) Surgical History History of esophagogastroduodenoscopy (EGD) (Acute) Presence of surgically created arteriovenous shunt for hemodialysis (Acute 11/2017) S/P colonoscopy (Acute) S/P lymph node biopsy (Acute) S/P nasal polypectomy (Acute) Status post carpal tunnel release (Acute) Status post insertion of dialysis catheter (Acute) Status post total hip replacement, bilateral (Acute) port removed (Acute) Family History Mother Hypertension Kidney disease ALS (amyotrophic lateral sclerosis) Father Heart disease Hypertension Kidney disease Diabetes Social History Smoking Status: Never smoker second hand exposure: No alcohol intake: never substance use type: does not use caffeine: No what type of physical activity do you participate in: other details: PT seatbelt use: always do you feel safe at home: Yes additional social history: Single HPI D AND C: Details: PAVITHRA PAINTER is a 47 year old who presents for urinary urgency and frequency and pain. she denies any fevers. she is in renal failure and planning a d and c for vaginal bleeding. she has been still taking her estrogen. she was prescribed progestin also but she stopped taking it. Pregancy History 0 Elective abortions Hx Para Spontaneous abortions ROS Const Constitutional: Reports system reviewed and no additional complaints, except as docu : Reports as per HPI Exam Const General: cooperative, well developed, comfortable Skin General: no rashes or lesions noted Results BMSUA Office Urine Color Yellow Last Edit by Debora Sepulveda on 05/12/18 15:38 Office Urine Clarity Clear Last Edit by Debora Sepulveda on 05/12/18 15:38 Assessment AND Plan Problems 1. Dysuria R30.0 Plan recommend stopping estrogen and discussed with dr vu gunderson cipro. Orders Orders: Plan Detail Goals Decrease pain Decrease spasm Decrease inflammation Improve ROM Barriers DDD Lupus Coding Level of Care Code Off vis,est,level 3 Diagnoses Dysuria R30.0 05/18/18 0622 <Electronically signed by Desirae Minaya MD> Date Desirae Minaya MD Cosigner Signature: Date (if applicable) CC: Observed: 05/12/2018 Status: F Source: PAMELA YADAV, URINE 6:00 PM [facility] [place] Urine Culture Culture exhibits no growth. Performed By: #### M100.0650 #### Laboratory [facility] [place], [address] HLA CLASS I AB Collected: 05/06/2018 Status: F Source: [facility] SCREEN,FC 3:32 PM [facility] TYPE CODE TESTS RESULT OUT OF REFERENCE UNITS RANGE LAB HLA1S(LOINC ) HLA CLASS SEE COMMENT I AB SCREEN,FC Result Comment: HLA CLASS I AB SCREEN,FLOW CYTOMETRY SEE SEPARATE REPORT. Performed By: #### HLAS1 #### [facility] [address] [place] [address] HLA CLASS II AB Collected: 05/06/2018 Status: F Source: UNIVERSITY SCREEN,FC 3:32 PM [facility] REPOS[facility] TYPE CODE TESTS RESULT OUT OF REFERENCE UNITS RANGE LAB HLA2S(LOINC ) HLA CLASS SEE COMMENT II AB SCREEN,FC Result Comment: HLA CLASS II AB SCREEN,FLOW CYTOMETRY SEE SEPARATE REPORT. Performed By: #### HLAS2 #### [facility] [address] [place] [address] RE-EVALUTION OT Observed: 05/05/2018 Status: F Source: [place] 2:17 PM [facility] [place] Occupational Therapy [facility] [address] [place] [address] Fax REEVALUATION / MEDICARE RECERTIFICATION OCCUPATIONAL THERAPY MR#: [id number] Acct: [id number] Name: PAVITHRA PAINTER Rep #: [id number] : 1970 47 From: Chana Monique Referring Dr.: Mitchell Womack MD Status: REG RCR Insurance: MEDICARE PART A B Eval Date: MEDICAID Mitchell Womack, It has been my pleasure to treat PAVITHRA PAINTER over the last 10 visits for Radial Head Fx. Please see the progress note below for an update on the occupational therapy plan of care! Subjective: Arrived and noted that feels about 80% back. No compression today. Noted not completing exercises regularly for strength or ROM every hour to manage edema. She is concerned about swelling and seeing surgeon of fistula next Wednesday. Objective/Function: New measurements taken today. ROM is WFL. Edema remains t/o R UE but is secondary to fistula placement. Strength assessment completed and is as follows: security advisor flexed R 66, L 56; ext R 69, L 56; lateral R 14, L 14; tripod R 16, L 14; tip R 10, L 8 lbs. Completed circumference edema measurments and are as follows: proximal forearm R 9.8 inchs, L 12 inches; wrist R 6.3 inches, L 7.5 inches; proximal phalanx of IF R 7.3 cm, L 7.4 cm. Plan Frequency: 2x /Week Duration: 6 Weeks Visits in this POC: 12 Plan: Continue for 2 more sessions. Slow to progress but has gained about 5 lbs of security advisor strength from inital evaluation. Completed ULFI as well as DASH as Pt. rating DASH for B arms and due to recent fistula placement has increased edema and soreness in L shoulder. She reports not completing BUE HEP regularly but does work putty HEP at home. Due to increased edema OT looking into the potential of full arm compression garment. She will see [facility] specialist if she wants to get custom compression garment after further follow up with Dr. Valverde next Wednesday. Tubigrip provided and to help with edema management at night and she is to be completing hourly ROM exercises during day to manage edema. She noted she has not been completing exercises. Will continue to provide additional manage techniques and will be d/c. Goals - Goals Goal:: Pavithra in to increase L security advisor by 10-15 lbs to promote increased ability to maniplate with L UE 4/5 trials 80% of the time to promote increased ability to return to PLOF by d/c. Goal:: Pavithra to use pain management techniques to have no more than 1-2/10 during ADL/AIDls 4/ 5 trials 80% of the time to return to PLOF by d/c. Goal:: Pavithra to complete compensations for sensory deficits e.g. use of vision to promote safety and decrease dropping self care items 4 5 trials 80% of the time by d/c. Goal:: Pavithra to be mod I to complete joint protection and energy conservations techniques to return to progressively using L UE for ADL/IAdls 4/5 trials 80% of th time by d/c. Goal:: Pavithra to return to all ADl/IAdls with L UE with minimal pain 4/ 5trials 80% of the time by d/c. Anticipated Interventions Anticipated Interventions: A/AAROM/PROM, Strengthening, Edema Control, Modalities, Orthoses, Joint Protection/Energy Conservation, Ergonomic Education, Fine Motor Coord/Musa, ADL Training, Caregiver Training, Home Program Other Interventions: Checked with Dr. Shah office and noted no need for protective splint at this time. She is to use sling. Please do not hesitate to contact me at [phone] by phone or if you have questions or concerns regarding this new plan of care! Sincerely, Chana Monique <Electronically signed by Chana Monique > 05/05/18 1417 CC: Mitchell Womack MD YULISSA Signed For Medicare only, by signing this I certify the plan of care. Physicians Signature Date GLUCOSE,BEDSIDE Collected: 04/26/2018 Status: F Source: [facility] 1:47 PM SYSTEM REPOSITORY TYPE CODE TESTS RESULT OUT OF RANGE REFERENCE UNITS LAB BGLU 70-100 mg/dL Normal 84 Glucose,Beds josé Result Comment: Test performed by glucose meter. Results may be 10%-15% lower than serum/plasma values. (CLIA ID [id number]) Performed By: #### BGLU #### [facility] [address] [place] [address] GLUCOSE,BEDSIDE Collected: 04/26/2018 Status: F Source: [facility] 1:15 PM SYSTEM REPOSITORY TYPE CODE TESTS RESULT OUT OF RANGE REFERENCE UNITS LAB BGLU 70-100 mg/dL Normal 91 Glucose,Beds josé Result Comment: Test performed by glucose meter. Results may be 10%-15% lower than serum/plasma values. (CLIA ID [id number]) Performed By: #### BGLU #### [facility] [address] [place] [address] GLUCOSE,BEDSIDE Collected: 04/26/2018 Status: F Source: [facility] 12:03 PM SYSTEM REPOSITORY TYPE CODE TESTS RESULT OUT OF RANGE REFERENCE UNITS LAB BGLU 70-100 mg/dL High 107 Glucose,Beds josé Result Comment: Test performed by glucose meter. Results may be 10%-15% lower than serum/plasma values. (CLIA ID [id number]) Performed By: #### BGLU #### [facility] [address] [place] [address] GLUCOSE,BEDSIDE Collected: 04/26/2018 Status: F Source: [facility] 11:13 AM SYSTEM REPOSITORY TYPE CODE TESTS RESULT OUT OF RANGE REFERENCE UNITS LAB BGLU 70-100 mg/dL Normal 85 Glucose,Beds josé Result Comment: Test performed by glucose meter. Results may be 10%-15% lower than serum/plasma values. (CLIA ID [id number]) Performed By: #### BGLU #### [facility] [address] [place] [phone] GLUCOSE,BEDSIDE Collected: 04/26/2018 Status: F Source: [facility] 9:50 AM [facility] REPOSITORY TYPE CODE TESTS RESULT OUT OF RANGE REFERENCE UNITS LAB BGLU 70-100 mg/dL High 139 Glucose,Beds josé Result Comment: Test performed by glucose meter. Results may be 10%-15% lower than serum/plasma values. (CLIA ID [id number]) Performed By: #### BGLU #### [facility] [address] [place] [phone] HEMOGRAM Collected: 04/26/2018 Status: F Source: [facility] 9:35 AM [facility] REPOSITORY TYPE CODE TESTS RESULT OUT OF RANGE REFERENCE UNITS LAB IWBC 3.6-10.7 10*3/uL WBC Normal 10.3 LAB RBC 3.80-5.20 10*6/uL RBC Normal 3.97 LAB HGB 11.7-16.0 g/dL Normal Hemoglobin 12.9 LAB HCT 35.0-47.0 % Normal Hematocrit 38.5 LAB MCV 79.0-98.0 fL MCV Normal 97.1 LAB MCH 26.0-34.0 pg MCH Normal 32.6 LAB MCHC 32.0-36.0 % MCHC Normal 33.6 LAB RDW 11.5-14.5 % High RDW 19.1 LAB PLT 140-440 10*3/uL Platelet Normal 162 LAB MPV 7.4-10.4 fL MPV Normal 8.4 Performed By: #### HEMOG, BMP3M #### [facility] [address] [place] [phone] BASIC METABOLIC PANEL Collected: 04/26/2018 Status: F Source: [facility] 9:35 AM SYSTEM REPOSITORY TYPE CODE TESTS RESULT OUT OF RANGE REFERENCE UNITS LAB NA3 137-145 mmol/L Sodium Normal 139 LAB K3 3.5-5.1 mmol/L Normal Potassium 5.0 LAB CL3 98-107 mmol/L Low Chloride 97 LAB CO23 22-30 mmol/L Carbon Normal Dioxide 29 LAB ANIN3 NA Anion Gap 13 LAB GLUC3 70-100 mg/dL Glucose Normal 74 LAB BUN3 7-20 mg/dL High Urea Nitrogen 68 LAB CRET3 0.52-1.25 mg/dL High Creatinine 6.17 LAB GF3BR >60 mL/min eGFR 8.9 LAB GF3WR >60 mL/min eGFR OTHER 7.3 Result Comment: Source- MDRD equation with creatinine calibration to IDMS(NKDEP) eGFR not recommended for drug dose adjustment LAB CA3 8.4-10.4 mg/dL Normal Calcium 8.6 Performed By: #### HEMOG, BMP3M #### [facility] [address] [place] [phone] GLUCOSE,BEDSIDE Collected: 04/26/2018 Status: F Source: [facility] 9:24 AM SYSTEM REPOSITORY TYPE CODE TESTS RESULT OUT OF RANGE REFERENCE UNITS LAB BGLU 70-100 mg/dL Normal 76 Glucose,Beds josé Result Comment: Test performed by glucose meter. Results may be 10%-15% lower than serum/plasma values. (CLIA ID [id number]) Performed By: #### BGLU #### [employer] [address] [place] [id number] HCG,URINE QUAL Collected: 04/26/2018 Status: F Source: [facility] 9:19 AM SYSTEM REPOSITORY TYPE CODE TESTS RESULT OUT OF REFERENCE UNITS RANGE LAB HCGUR Negative NA Negative HCG,Urine Qual Result Comment: is the most common reason for HCG in urine, although choriocarcinoma, hydatidiform mole, and certain nontropho- blastic malignancies also result in detectable urinary HCG levels. Sensitivity = 20mIU/mL. Performed By: #### HCGUR #### [employer] [address] [place] [address] VL VEIN MAPPING FOR Observed: 04/21/2018 Status: F Source: [facility] [employer] PREOP FISTULA UPPER 12:26 PM SYSTEM REPOSITORY Patient Name: PAVITHRA PAINTER Ultrasound Exam Date/Time 04/21/2018 15:23:51 EDT Exam VL Vein Map for Preop Fistula Upper Ext Ordering Physician CAMI LAU Accession Number [id number] CPT4 Codes G0365 () Reason For Exam End stage renal disease Report [facility] --- Vein Mapping For Dialysis Access Evaluation Patient Name: Pavithra Painter : 1970 (47yrs) Study Date: 04/21/2018 Age: 47 Account: [id number] Gender: F Loc: BP: Ordering: Cami Lau Technologist: Ordering Physician: Cami Lau Recoating Machine Operator: Ekaterina Powers RVT [facility] Interpreting Physician: Garcia Morales MD --- Location: [address] --- INDICATIONS: ESRD. Preop examination. --- CONCLUSIONS 1. Vein sizes as noted below. --- --- HISTORY: Risk factors: Lifelong nonsmoker. Hypertension. Recent surgery: AVF in left arm. Graft in left forearm. --- STUDY DATA: Upper extremity evaluation for hemodialysis access. Birthdate: Patient birthdate: 1970. Age: Patient is 47 yr old. Sex: Gender: female. Ethnicity: Ethnicity: . Height: Height: 0 cm. Weight: Weight: 0 kg. Duplex scan and vessel mapping. Patient status: Outpatient. Objective: Evaluation prior to dialysis access surgery. Procedure: A vascular evaluation was performed. The images were obtained using a [employer] E9 vascular ultrasound machine. --- VENOUS FLOW AND IMAGING: + + -+ !Location !Flow properties ! + + -+ !Right !Spontaneous; normal augmentation ! !innominate ! ! + + -+ !Right !Normal phasicity; spontaneous; normal augmentation; ! !subclavian !compressible ! + + -+ !Right basilic !Compressible ! + + -+ !Right cephalic !Compressible ! + + -+ !Left innominate!Spontaneous; normal augmentation ! + + -+ !Left subclavian!Normal phasicity; spontaneous; normal augmentation; ! ! !compressible ! + + -+ !Left basilic !Compressible ! + + -+ !Left cephalic !Compressible ! + + -+ Vein measurement table: +--------+ +-------+--------+ --+ !Vein !Location !AP !Depth !Comments ! +--------+ +-------+--------+ --+ !Cephalic!Proximal right upper arm!3.11 mm!--------! --! +--------+ +-------+--------+ --+ !Cephalic!Mid right upper arm !2.17 mm!16.30 mm! --! +--------+ +-------+--------+ --+ !Cephalic!Distal right upper arm !1.87 mm!--------! --! +--------+ +-------+--------+ --+ !Cephalic!Proximal right forearm !1.56 mm!--------! --! +--------+ +-------+--------+ --+ !Cephalic!Mid right forearm !1.40 mm!--------! --! +--------+ +-------+--------+ --+ !Cephalic!Distal right forearm !1.19 mm!--------! --! +--------+ +-------+--------+ --+ !Basilic !Proximal right upper arm!3.88 mm!--------! --! +--------+ +-------+--------+ --+ !Basilic !Mid right upper arm !3.24 mm!--------! --! +--------+ +-------+--------+ --+ !Basilic !Distal right upper arm !2.97 mm!--------! --! +--------+ +-------+--------+ --+ !Basilic !Proximal right forearm !3.01 mm!--------! --! +--------+ +-------+--------+ --+ !Basilic !Mid right forearm !1.09 mm!--------! --! +--------+ +-------+--------+ --+ !Basilic !Distal right forearm !1.70 mm!--------! --! +--------+ +-------+--------+ --+ !Cephalic!Proximal left upper arm !-------!--------!patient has an AVF in the! ! ! ! ! !left upper arm ! +--------+ +-------+--------+ --+ !Cephalic!Mid left upper arm !-------!--------!patient has an AVF in the! ! ! ! ! !left upper arm ! +--------+ +-------+--------+ --+ !Cephalic!Distal left upper arm !-------!--------!patient has an AVF in the! ! ! ! ! !left upper arm ! +--------+ +-------+--------+ --+ !Cephalic!Proximal left forearm !1.92 mm!--------! --! +--------+ +-------+--------+ --+ !Cephalic!Mid left forearm !1.04 mm!--------! --! +--------+ +-------+--------+ --+ !Cephalic!Distal left forearm !-------!--------!not seen. ! +--------+ +-------+--------+ --+ !Basilic !Proximal left upper arm !-------!--------!not seen . patient has an! ! ! ! ! !AVF in the left upper ! ! ! ! ! !arm. ! +--------+ +-------+--------+ --+ !Basilic !Mid left upper arm !-------!--------!not seen. patient has an ! ! ! ! ! !AVF in the left upper arm! +--------+ +-------+--------+ --+ !Basilic !Distal left upper arm !-------!--------!not seen. patient has an ! ! ! ! ! !AVF in the left upper arm! +--------+ +-------+--------+ --+ !Basilic !Proximal left forearm !-------!--------!patient has a graft ! ! ! ! ! !within the left basilic v! ! ! ! ! !in the forearm. appears ! ! ! ! ! !to have no flow within ! ! ! ! ! !it. ! +--------+ +-------+--------+ --+ !Basilic !Mid left forearm !-------!--------!patient has a graft ! ! ! ! ! !within the left basilic v! ! ! ! ! !in the forearm. appears ! ! ! ! ! !to have no flow within ! ! ! ! ! !it. ! +--------+ +-------+--------+ --+ !Basilic !Distal left forearm !-------!--------!patient has a graft ! ! ! ! ! !within the left basilic v! ! ! ! ! !in the forearm. appears ! ! ! ! ! !to have no flow within ! ! ! ! ! !it. ! +--------+ +-------+--------+ --+ PVR / Doppler waveforms: + +---------+ + !Segment !Pressure !Comment ! + +---------+ + !R brachial!158 mm Hg! ! + +---------+ + !R radial !171 mm Hg! ! + +---------+ + !R ulnar !193 mm Hg! ! + +---------+ + !L brachial!---------!unable to obtain, due to AVF.! + +---------+ + !L radial !183 mm Hg! ! + +---------+ + !L ulnar !197 mm Hg! ! + +---------+ + Electronically signed by: Garcia Morales MD [id number] Final Dictated: 04/22/2018 7:58 am Dictating Physician: GARCIA MORALES Signed Date and Time: 04/21/2018 2:08 pm Signed by: GARCIA MORALES FREEZE Collected: 04/12/2018 Status: F Source: [facility] 4:09 PM HOSPITALS REPOSITORY TYPE CODE TESTS RESULT OUT OF REFERENCE UNITS RANGE LAB HLFXM(LOINC ) OTONIEL, COMMENT FREEZE Result Comment: SEE SEPARATE REPORT. Performed By: #### HLFXM #### [facility] [address] [place] [address] ORTHOPEDIC VISIT Observed: 04/12/2018 Status: F Source: PAMELA REPORT 10:44 AM [facility] [place] [facility] [address] [place] [id number] OFFICE VISIT Date of Service: 04/07/18 MR#: [id number] Acct: [id number] Name: PAVITHRA PAINTER Rep #: [id number] : 1970 Provider: Iris Shah DO Age/Sex: 47/F Location: [facility] [place] Status: Signed Intake Intake Visit Reasons: LEFT WRIST Is patient in pain?: No Allergies NEGRO Inhibitors Allergy (Verified 03/08/18 11:12) Angioedema lisinopril Allergy (Verified 03/08/18 11:12) Angioedema Sulfa (Sulfonamide Antibiotics) Allergy (Verified 03/08/18 11:12) Rash sulfamethoxazole [From Bactrim] Allergy (Verified 03/08/18 11:12) Rash trimethoprim [From Bactrim] Allergy (Verified 03/08/18 11:12) Rash Medications Duloxetine Hcl [Cymbalta] 120 mg PO DAILY 10/01/16 [History Confirmed 03/15/18] Hydroxychloroquine [Plaquenil] 200 mg PO BIDCM 10/01/16 [History Confirmed 03/15/18] Linagliptin [Tradjenta] 5 mg PO DAILY 10/01/16 [History Confirmed 03/15/18] Montelukast [Singulair] 10 mg PO QHS 10/01/16 [History Confirmed 03/15/18] Acyclovir [Zovirax] 400 mg PO TID PRN 10/26/16 [History Confirmed 03/15/18] Ergocalciferol [Vitamin D] 1.25 cap PO QMONTH 01/21/17 [History Confirmed 03/15/18] Amlactin Ultra Body Cream 1 applic TOPICAL DAILY PRN 02/17/17 [History Confirmed 03/15/18] Cevimeline HCl [Evoxac] 30 mg PO TID 02/17/17 [History Confirmed 03/15/18] Dextroamphetamine/Amphetamine [Adderall Xr 10 mg Capsule] 15 mg PO BID 07/22/17 [History Confirmed 03/15/18] Estradiol [Estrace] 1 mg PO QHS 09/27/17 [History Confirmed 03/15/18] omeprazole 40 mg capsule,delayed release 40 mg PO QDAY 12/08/17 [History Confirmed 03/15/18] paroxetine 10 mg tablet 10 mg PO QDAY 12/08/17 [History Confirmed 03/15/18] Sevelamer Carbonate 2,400 mg PO TID 12/09/17 [History Confirmed 03/15/18] furosemide 40 mg tablet 40 mg PO BID tab 01/11/18 [History Confirmed 03/15/18] metoprolol tartrate 25 mg tablet 25 mg PO BID 01/11/18 [History Confirmed 03/15/18] prednisone 10 mg tablet 5 mg PO DAILYCM tab 01/11/18 [History Confirmed 03/15/18] Acetaminophen [Tylenol Extra Strength] 500 tab BID PRN PRN MDD 1000 01/20/18 [History Confirmed 03/15/18] Atorvastatin Calcium [Lipitor] 20 mg PO QHS 01/20/18 [History Confirmed 03/15/18] Baclofen [Lioresal] 10 mg PO TID 01/20/18 [History Confirmed 03/15/18] Lorazepam [Ativan] 1 mg PO BID 01/20/18 [History Confirmed 03/15/18] Ondansetron HCl [Zofran] 4 mg PO PRN PRN 01/20/18 [History Confirmed 03/15/18] Pregabalin [Lyrica] 50 mg PO BID 01/20/18 [History Confirmed 03/15/18] PFSH Medical History Nonrheumatic mitral (valve) insufficiency (Chronic) Secondary pulmonary arterial hypertension (Chronic) Non-rheumatic tricuspid valve insufficiency (Chronic) End stage renal disease (Chronic) Problem with dialysis access (Acute) Chronic anemia (Chronic) Hypertension (Chronic) Narcolepsy (Chronic) Lupus nephritis (Chronic) Degenerative disc disease, cervical (Chronic) Cervical spondylosis (Chronic) Colitis (Acute) Leukopenia (Acute) Diabetes mellitus, type II (Chronic) SLE (systemic lupus erythematosus) (Chronic) Status post left heart catheterization (Acute) Acute renal failure (Resolved) Chronic kidney disease (Resolved) Dehydration with hyponatremia (Resolved) Hyperkalemia (Resolved) Unresponsiveness (Resolved) Surgical History History of esophagogastroduodenoscopy (EGD) (Acute) Presence of surgically created arteriovenous shunt for hemodialysis (Acute 11/2017) S/P colonoscopy (Acute) S/P lymph node biopsy (Acute) S/P nasal polypectomy (Acute) Status post carpal tunnel release (Acute) Status post insertion of dialysis catheter (Acute) Status post total hip replacement, bilateral (Acute) Family History Mother Diabetes Hypertension Kidney disease Father Heart disease Hypertension Kidney disease Social History Smoking Status: Never smoker HPI LEFT WRIST: Details: PAVITHRA PAINTER is a 47 year old F here today for f/u radial neck fracture. She has been compliant with the HEP and has no complaints of pain today. She has full rom and Denies numbness, tingling or other associated symptoms. She was able to have the procedure she needed for the concerns with her shunt and pic line Ortho Exam Left Wrist/Hand Skin/Wound: Yes CDI Contralateral Normal: Yes Left Wrist: Yes ROM-Extension 0-60, Yes ROM-Supination 0-90, Yes ROM-Flexion 0-80 and Yes ROM-Pronation 0-80; no TTP Fracture site Motor: EPL: 5, FDP-2: 5, 1st Dorsal Interosseous: 5, APB: 5 Sensation: Radial: I, Ulnar: I, Median: I Left Elbow Test: No Valgus Stress Test, No Varus Stress Test, No TTP Medial Epicondyle, No TTP Lateral Epicondyle, No Pain w/ resist wrist ext, No Pain w/ resist wrist flex, No Pain w/ resist pronation, No Pain w/ resist 3rd dig ext, No Thenar Atrophy, No Ulnar Nerve Subluxation, No Milking Sign ROM: Yes Pronation 0-80, Flexion 0-140 and Supination 0-90; no TTP Fracture Site or Extension 0 Sensation: Radial: I, Ulnar: I, Median: I Motor: Elbow Extension: 5, Elbow Flexion: 5, EPL: 5, FDP-2: 5, 1st Dorsal Interosseous: 5 Assessment AND Plan 1. Closed nondisplaced fracture of neck of left radius with routine healing, subsequent encounter S52.935D Plan Patient has full rom and no pain. Return to all normal activities. Follow up as needed or sooner if pain, swelling, numbness or associated symptoms, or concerns develop. All questions answered. Patient in agreement of plan. Plan Detail Goals Decrease pain Decrease spasm Decrease inflammation Improve ROM Barriers DDD Lupus Coding Level of Care Code Off vis,est,level 3 Diagnoses Closed nondisplaced fracture of neck of left radius with routine healing, subsequent encounter S52.166D Encounter type: subsequent encounter Fracture alignment: nondisplaced Fracture healing: with routine healing 04/12/18 1044 <Electronically signed by Iris Shah DO> Date Iris Dong Signature: Date (if applicable) CC: RE-EVALUATION - PT (1) Observed: 03/22/2018 Status: F Source: [place] 1:15 PM [facility] [place] [facility] [address] [place] [address] Fax REEVALUATION / MEDICARE RECERTIFICATION PHYSICAL THERAPY MR#: [id number] Acct: [id number] Name: PAVITHRA PAINTER Rep #: [id number] : 1970 47 From: Maureen Solis PT, Cert. MDT Referring Dr.: Mitchell Womack MD Status: REG RCR Insurance: MEDICARE PART A B MEDICAID Mitchell Womack, It has been my pleasure to treat PAVITHRA PAINTER over the last 9 visits for DEBILITY. Please see the progress note below for an update on the physical therapy plan of care! Subjective: PATIENT REPORTS SHE IS BEING REFERRED TO A LARGER HOSPITAL FOR TREATMENT OF HER LEFT ARM DUE TO THERE BEING A BLOCKAGE FOUND ON [place] LAST WEDNESDAY. SHE IS AWAITING THAT REFERRAL. SHE IS ANTICIPATING IT TO BE AN OUT-PATIENT PROCEEDURE. FROM A PHYSICAL THERAPY STAND POINT SHE REPORTS HER ENDURANCE AND BALANCE ARE NOT WHERE SHE WANTS THEM TO BE YET. PATIENT REPORTS SHE TOOK A 6 MIN WALK FOR A BREATHING TEST LAST WEEK BUT SHE HASN'T REALLY BEEN WALKING FOR EXERCISE OTHERWISE. STATES SHE IS HESITANT TO WALK OUTSIDE SINCE SHE FELL. Objective/Function: UPON EXAM: Sitting Posture: POOR. Standing Posture: POOR. PATIENT IS VERY SLOUCHED WITH ROUNDED SHOULDERS AND FORWARD HEAD. LEFT UE IN SLING. Postural strength: POOR. Other Observations: INDEP GAIT INTO PT WITHOUT AD WITH SLOW CADANCE AND NO LOB OR SOB. INDEP TRANSFER SIT TO STAND WITHOUT UE ASSIST. Motor deficit: RIGHT UE AND SHAN LE STRENGTH GROSSLY 4 TO 5/5 WITH MMT'ING NOW. (LEFT UE AND SHAN WRISTS AND HANDS NT). ROM deficit: RUE AND SHAN LE ROM WFL. Lumbar mvmt loss: flex - NIL. ext - MOD TO ALBERTO. R SG - MIN. L SG - MIN. Core strength: POOR. Scapular Strength: POOR. Cervical Mvmt Loss: CERVICAL ROM IS WFL ALL PLANES. OTHER: PATIENT HAS GENERALIZED WEEK AND POOR ENDURANCE. SHE IS ABLE TO SLS ON EACH LEG WITHOUT UE ASSIST X > 20 SECONDS EACH. LEFS HAS REMAINED 36 SINCE LAST RE-CHECK. PATIENT HAD TO BRIEFLY LEAVE PT SESSION TO USE THE BATHROOM AND ALSO HAD TO TAKE A COUPLE PHONE CALL DURING THIS SESSION. PATIENT IS APPROPRIATE TO RESUME PT. SEE FURTHER ASSESSMENT INFORMATION FOR TODAY'S TREATMENT IN THER ACT DETAILS. Plan Plan: *LEFT CENTRAL NOAH LINE*. *RIGHT DIALYSIS CATHETER*. *NO LEFT UE TREATMENT IN PT - CURRENTLY IN OT*. POSTURE CORRECTION/STRENGTHENING ABLE TO IMPROVE POSTURE AND RIGHT UE STRENGTH, INSTRUCTION IN APPROPRIATE BODY MECHANICS. CORE STRENGTHENING. SHAN UE AND LE STRENGTHENING (EXCEPT LEFT UE). *CONTINUE GYM EX'S BUT NEED TO REALLY FOCUS ON HEP INSTRUCTION. PATIENT DOES NOT PLAN TO GET A MEMBERSHIP TO A GYM POST PT AND PREFERS HOME EX PROGRAM. Goals Goal 1:: INDEP AND SAFE GAIT ON ALL SURFACES WITH LEAST ASSISTIVE DEVICE X 1600 FEET WITH MILD SOB. Goal Time Frame: 4-6 Weeks Goal Progress: Progressing Goal 2:: INDEP HEP FOR GENERAL UPPER AND LOWER BODY STRENGTHEING FOR CONTINUED IMPROVEMENT ONCE FORMAL PT CONCLUDES. Goal Time Frame: 4-6 Weeks Goal Progress: Progressing Anticipated Interventions Patient/Client Instruction: Educate patient on: Condition, Plan of Care, Risk Factors, Benefits of Fitness Program For the Purpose of:: To improve self management Therapeutic Exercise to Include: Strength training, Endurance training, Balance training, Body mechanics, Postural training, Dynamic Lumbar Stabilization, Scapular Strength/Stabilization For the Purpose of:: To improve muscle performance and motor function, To increase tolerance to activity/condition/position, To improve ability of physical actions for home/community/work/leisure, To improve gait and locomotor functions, To improve endurance, To improve balance Please do not hesitate to contact me at [phone] by phone or if you have questions or concerns regarding this new plan of care! Sincerely, Maureen Solis <Electronically signed by Maureen Solis PT, Cert. MDT> 03/22/18 8818 CC: Mitchell Womack MD LUCILA Signed For Medicare only, by signing this I certify the plan of care. Physicians Signature Date CHIROPRACTIC REPORT Observed: 03/21/2018 Status: F Source: [place] 8:45 AM [facility] [address] [place] [id number] OFFICE VISIT Date of Service: 03/15/18 MR#: [id number] Acct: [id number] Name: PAVITHRA PAINTER Rep #: [id number] : 1970 Provider: Nancy Tuttle D.C. Age/Sex: 47/F Location: [facility] [place] Status: Signed Intake Vital Signs03/15/18 Height 5 ft 4 in 03/15/18 Weight: 150 lb 03/15/18 Body Mass Index (BMI) 25.7 Intake Visit Reasons: back pain Chief Complaint: neck and mid back pain Is patient in pain?: Yes Allergies NEGRO Inhibitors Allergy (Verified 03/08/18 11:12) Angioedema lisinopril Allergy (Verified 03/08/18 11:12) Angioedema Sulfa (Sulfonamide Antibiotics) Allergy (Verified 03/08/18 11:12) Rash sulfamethoxazole [From Bactrim] Allergy (Verified 03/08/18 11:12) Rash trimethoprim [From Bactrim] Allergy (Verified 03/08/18 11:12) Rash Medications Duloxetine Hcl [Cymbalta] 120 mg PO DAILY 10/01/16 [History Confirmed 03/15/18] Hydroxychloroquine [Plaquenil] 200 mg PO BIDCM 10/01/16 [History Confirmed 03/15/18] Linagliptin [Tradjenta] 5 mg PO DAILY 10/01/16 [History Confirmed 03/15/18] Montelukast [Singulair] 10 mg PO QHS 10/01/16 [History Confirmed 03/15/18] Acyclovir [Zovirax] 400 mg PO TID PRN 10/26/16 [History Confirmed 03/15/18] Ergocalciferol [Vitamin D] 1.25 cap PO QMONTH 01/21/17 [History Confirmed 03/15/18] Amlactin Ultra Body Cream 1 applic TOPICAL DAILY PRN 02/17/17 [History Confirmed 03/15/18] Cevimeline HCl [Evoxac] 30 mg PO TID 02/17/17 [History Confirmed 03/15/18] Dextroamphetamine/Amphetamine [Adderall Xr 10 mg Capsule] 15 mg PO BID 07/22/17 [History Confirmed 03/15/18] Estradiol [Estrace] 1 mg PO QHS 09/27/17 [History Confirmed 03/15/18] omeprazole 40 mg capsule,delayed release 40 mg PO QDAY 12/08/17 [History Confirmed 03/15/18] paroxetine 10 mg tablet 10 mg PO QDAY 12/08/17 [History Confirmed 03/15/18] Sevelamer Carbonate 2,400 mg PO TID 12/09/17 [History Confirmed 03/15/18] furosemide 40 mg tablet 40 mg PO BID tab 01/11/18 [History Confirmed 03/15/18] metoprolol tartrate 25 mg tablet 25 mg PO BID 01/11/18 [History Confirmed 03/15/18] prednisone 10 mg tablet 5 mg PO DAILYCM tab 01/11/18 [History Confirmed 03/15/18] Acetaminophen [Tylenol Extra Strength] 500 tab BID PRN PRN MDD 1000 01/20/18 [History Confirmed 03/15/18] Atorvastatin Calcium [Lipitor] 20 mg PO QHS 01/20/18 [History Confirmed 03/15/18] Baclofen [Lioresal] 10 mg PO TID 01/20/18 [History Confirmed 03/15/18] Lorazepam [Ativan] 1 mg PO BID 01/20/18 [History Confirmed 03/15/18] Ondansetron HCl [Zofran] 4 mg PO PRN PRN 01/20/18 [History Confirmed 03/15/18] Pregabalin [Lyrica] 50 mg PO BID 01/20/18 [History Confirmed 03/15/18] PFSH Medical History Nonrheumatic mitral (valve) insufficiency (Chronic) Secondary pulmonary arterial hypertension (Chronic) Non-rheumatic tricuspid valve insufficiency (Chronic) End stage renal disease (Chronic) Problem with dialysis access (Acute) Chronic anemia (Chronic) Hypertension (Chronic) Narcolepsy (Chronic) Lupus nephritis (Chronic) Degenerative disc disease, cervical (Chronic) Cervical spondylosis (Chronic) Colitis (Acute) Leukopenia (Acute) Diabetes mellitus, type II (Chronic) SLE (systemic lupus erythematosus) (Chronic) Status post left heart catheterization (Acute) Acute renal failure (Resolved) Chronic kidney disease (Resolved) Dehydration with hyponatremia (Resolved) Hyperkalemia (Resolved) Unresponsiveness (Resolved) Surgical History History of esophagogastroduodenoscopy (EGD) (Acute) Presence of surgically created arteriovenous shunt for hemodialysis (Acute 11/2017) S/P colonoscopy (Acute) S/P lymph node biopsy (Acute) S/P nasal polypectomy (Acute) Status post carpal tunnel release (Acute) Status post insertion of dialysis catheter (Acute) Status post total hip replacement, bilateral (Acute) Family History Mother Diabetes Hypertension Kidney disease Father Heart disease Hypertension Kidney disease Social History Smoking Status: Never smoker second hand exposure: No alcohol intake: never substance use type: does not use caffeine: No what type of physical activity do you participate in: other HPI back pain : Chief Complaint: mid and low back pain Visit Number: 7 Details: PAVITHRA PAINTER is a 47 year old F who presents with increased back pain. She states that after her last treatment her pain increased, rating the pain a 5/10. Pavithra described the pain as a tight and sharp ache that was constant and lingered on until roughly 3 days ago. Today Pavithra rates her pain a 4/10 and describes it as a deep dull ache that radiates from the mid back into the low back. Bending, lifting, twisting and walking all cause increased pain, although she denies any numbness or tingling. Location: mid and low back Duration: constant Aggravating or associated factors: bending, lifting, twisting and walking Relieving factors: none Pain Quality: aching, dull, cramping, sharp, radiating Exam Musc General: Yes normal gait and joint tenderness (C4, C5, C6, T2, T3, T8, L3-L5); no normal posture (anterior head carriage) Cervical Spine: loss of normal cervical lordosis, pain with cervical ROM with lateral flexion to left, with rotation to left, with lateral flexion to right and with rotation to right, cervical spasm (with areas of edema, slightly worse) bilateral lower: paracervical muscles and trapezius, cervical ROM abnormal lateral flexion to the right decreased, lateral flexion to the left decreased, rotation to left decreased, rotation to right decreased and extension decreased, other (Edema at cervicothoracic junction and upper thoracics bilaterally) Thoracic/Lumbar Spine: thoracic and lumbar spine normal to inspection, pain with thoraco-lumbar ROM with forward flexion, with rotation to the left and with rotation to the right, paraspinal tenderness bilaterally in the lower lumbar and in the mid thoracic, thoraco-lumbar ROM limited with forward flexion, thoraco-lumbar spasm bilaterally in the lower lumbar and in the mid thoracic and on the right greater than left (upper thoracic) Ortho Test CERVICAL Compression pain: Negative Distraction pain: relief Jose's pain: Negative Valsalvas: Negative Shoulder depression pain: Right (pos, bilaterally) THORACIC LUMBAR Kemps: Positive, Right, Le Valsalvas: Negative SLR: Negative Iliac Compression: Positive, Right, Le Office Procedures Chiropractic Treatments Procedures Manipulation: 3-4 regions (C4,C6, T2, T8, L3,L5) Assessment AND Plan 1. Segmental and somatic dysfunction of lumbar region M99.03 Orders Orders: 2. Segmental and somatic dysfunction of thoracic region M99.02 Orders Orders: 3. Segmental and somatic dysfunction of cervical region M99.01 Orders Orders: Plan Detail Additional Comments Patient has failed to progress with her treatment. Release patient from active treatment plan and continue with physical therapy to improve strength. Goals Decrease pain Decrease spasm Decrease inflammation Improve ROM Barriers DDD Lupus Follow Up Release from treatment Coding Level of Care Code Off vis,est,level 1 Diagnoses Segmental and somatic dysfunction of lumbar region M99.03 Segmental and somatic dysfunction of thoracic region M99.02 Segmental and somatic dysfunction of cervical region M99.01 Additional Codes Procedures - Manipulation: 3-4 regions (49000) 03/21/18 0845 <Electronically signed by Nancy Tuttle D.C.> Date Nancy Villar Signature: Date (if applicable) CC: OPERATIVE REPORT Observed: 03/17/2018 Status: F Source: [place] 11:39 AM [facility] [place] [facility] Medical Records Department [address] [place] [address] Operative Report 03/17/18 1134 MR#: [id number] Acct: [id number] Name: PAVITHRA PAINTER Rep #: [id number] : 1970 47 From: Rigo Valverde MD PCP: Vu GARCIA,Mitchell Yadav Status: REG [facility] Location: [facility] Problem List (1) Problem with dialysis access Status: Acute Qualifiers: Encounter type: initial encounter Qualified Code(s): T82.898A - Other specified complication of vascular prosthetic devices, implants and grafts, initial encounter Report of Operation Date of Procedure: 03/17/18 Pre-Operative Diagnosis: Left upper extremity swelling Post-Operative Diagnosis: 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 47-year-old female was taken to the special procedures lab. She was placed on the table. 50 mcg of fentanyl 1 mg Versed were given as intravenous sedation. The left extremity sterilely prepped draped. Ultrasound was used to identify the basilic vein closer to the radial arterial anastomosis. Under ultrasound guidance 2% lidocaine was instilled. Micropuncture needle was inserted. 6 Haitian short sheath dilator inserted. A hand-injection view demonstrated adequate venous size of the transposed basilic vein in the upper arm. However there is evidence significant venous return in the upper arm. On the next set of films there is evidence of a left subclavian port with now seemingly complete occlusion of flow around the port tubing centrally. This is distinctly different from a previous fistulogram that had been obtained. I used to 4 Haitian angled glide catheter and 035 angled Glidewire and then I tried an 035 stiff angled Glidewire although I could engage the subclavian vein at the tubing site I could not get the wire to advance. This point I aborted attempts. Pulled the sheath placed a U suture of 4-0 nylon. Impression complete occlusion of the subclavian vein around port catheter tubing. Otherwise patent left upper extremity transposed basilic vein to brachial artery AV fistula. I will recommend tertiary referral for possible central venous intervention. Patient may need to have the port tubing sacrificed. I will defer this to tertiary consultation and treatment. She will likely need to have ongoing dialysis access management performed at the tertiary center as well because of the complexity of this issue. Cc: Dr. Arline Valverde M.D., F.A.C.S. Type of Anesthesia:: IV Sedation 03/17/18 1139 <Electronically signed by Rigo Valverde MD> Date Rigo Valverde MD CC: Arline Ambriz DO; Rigo Valverde MD; Mitchell Womack MD Signed BEDSIDE GLUCOSE Collected: 03/17/2018 Status: F Source: [place] 9:55 AM [facility] [place] TYPE CODE TESTS RESULT OUT OF RANGE REFERENCE UNITS LAB L501.080 70-110 mg/dL Normal BEDSIDE GLU 70 Result Comment: MANAGEMENT OF PATIENT CARE PER NURSING PROTOCOL Performed By: #### L501.080 #### Laboratory Point of Care [address] [place] [address] CBC-COMPLETE BLOOD CNT Collected: 03/17/2018 Status: F Source: [place] NO DIFF 9:24 AM [facility] [place] TYPE CODE TESTS RESULT OUT OF RANGE REFERENCE UNITS LAB L100.1000 4.4-11.0 K/mm3 Normal WBC 7.5 LAB L100.1200 4.2-5.4 M/mm3 Low RBC 3.71 LAB L100.1300 12.0-15.0 g/dl Normal HGB 12.0 LAB L100.1400 37-47 % Normal HCT 37.5 LAB L100.1500 81-99 fL High MCV 101.1 LAB L100.1600 27.0-32.0 pg High MCH 32.3 LAB L100.1700 32-36 g/gl Normal MCHC 32.0 LAB L100.1810 11.6-14.6 % High RDW CV 16.5 LAB L100.1820 35.1-43.9 fl High RDW SD 57.4 LAB L100.1900 150-450 K/mm3 Normal PLT 174 LAB L100.2000 6.2-12.0 fl Normal MPV 9.5 Performed By: #### L100.0500 #### Laboratory [address] [place], [place], [address] BASIC METABOLIC Collected: 03/17/2018 Status: F Source: [place] PROFILE ([facility]) 9:24 AM [facility] [place] TYPE CODE TESTS RESULT OUT OF RANGE REFERENCE UNITS LAB L501.0100 74-106 mg/dL Normal GLU 74 Result Comment: Please note revised GLUCOSE reference range effective 2017. LAB L501.1000 7-18 mg/dL High BUN 46 LAB L501.1100 0.55-1.02 mg/dL High CREAT,SERUM 6.02 Result Comment: The validity of the calculated GFR AND GFRAA in patients over 70 years has not been determined. Clinical correlation is essential. LAB L501.1110 >60 mL/min Low EST GFR 8 Result Comment: Non- GFR Calc LAB L501.1115 >60 mL/min Low EST GFR - AA 10 Result Comment: GFR Calc LAB L501.1255 ml/min Normal Estimated CRCL 10.19 LAB L501.1300 10-20 RATIO Low BUN/CRE 7.6 LAB L501.2200 8.5-10 mg/dL Normal .1 CA 9.0 LAB L501.5300 136-14 mmol/L Normal 5 NA 139 LAB L501.5600 3.5-5. mmol/L Normal 1 K 4.3 LAB L501.5900 98-107 mmol/L Normal CL 102 LAB L501.6100 21.0-3 mmol/L Normal 2.0 CO2 29.0 LAB L501.6200 5-15 Normal GAP 8 Performed By: #### L500.2500 #### Laboratory [address] [place], [place], [address] ORTHOPEDIC VISIT Observed: 03/17/2018 Status: F Source: [place] REPORT 9:02 AM [facility] [place] [facility] [address] [place] [address] [address] [place] [address] OFFICE VISIT Date of Service: 03/04/18 MR#: [id number] Acct: [id number] Name: PAVITHRA PAINTER Rep #: [id number] : 1970 Provider: Iris Shah DO Age/Sex: 47/F Location[place] [facility] [place] [place]: Signed Intake Intake Visit Reasons: LEFT WRIST PAIN Is patient in pain?: Yes Allergies NEGRO Inhibitors Allergy (Verified 03/08/18 11:12) Angioedema lisinopril Allergy (Verified 03/08/18 11:12) Angioedema Sulfa (Sulfonamide Antibiotics) Allergy (Verified 03/08/18 11:12) Rash sulfamethoxazole [From Bactrim] Allergy (Verified 03/08/18 11:12) Rash trimethoprim [From Bactrim] Allergy (Verified 03/08/18 11:12) Rash Medications Duloxetine Hcl [Cymbalta] 120 mg PO DAILY 10/01/16 [History Confirmed 03/15/18] Hydroxychloroquine [Plaquenil] 200 mg PO BIDCM 10/01/16 [History Confirmed 03/15/18] Linagliptin [Tradjenta] 5 mg PO DAILY 10/01/16 [History Confirmed 03/15/18] Montelukast [Singulair] 10 mg PO QHS 10/01/16 [History Confirmed 03/15/18] Acyclovir [Zovirax] 400 mg PO TID PRN 10/26/16 [History Confirmed 03/15/18] Ergocalciferol [Vitamin D] 1.25 cap PO QMONTH 01/21/17 [History Confirmed 03/15/18] Amlactin Ultra Body Cream 1 applic TOPICAL DAILY PRN 02/17/17 [History Confirmed 03/15/18] Cevimeline HCl [Evoxac] 30 mg PO TID 02/17/17 [History Confirmed 03/15/18] Dextroamphetamine/Amphetamine [Adderall Xr 10 mg Capsule] 15 mg PO BID 07/22/17 [History Confirmed 03/15/18] Estradiol [Estrace] 1 mg PO QHS 09/27/17 [History Confirmed 03/15/18] omeprazole 40 mg capsule,delayed release 40 mg PO QDAY 12/08/17 [History Confirmed 03/15/18] paroxetine 10 mg tablet 10 mg PO QDAY 12/08/17 [History Confirmed 03/15/18] Sevelamer Carbonate 2,400 mg PO TID 12/09/17 [History Confirmed 03/15/18] furosemide 40 mg tablet 40 mg PO BID tab 01/11/18 [History Confirmed 03/15/18] metoprolol tartrate 25 mg tablet 25 mg PO BID 01/11/18 [History Confirmed 03/15/18] prednisone 10 mg tablet 5 mg PO DAILYCM tab 01/11/18 [History Confirmed 03/15/18] Acetaminophen [Tylenol Extra Strength] 500 tab BID PRN PRN MDD 1000 01/20/18 [History Confirmed 03/15/18] Atorvastatin Calcium [Lipitor] 20 mg PO QHS 01/20/18 [History Confirmed 03/15/18] Baclofen [Lioresal] 10 mg PO TID 01/20/18 [History Confirmed 03/15/18] Lorazepam [Ativan] 1 mg PO BID 01/20/18 [History Confirmed 03/15/18] Ondansetron HCl [Zofran] 4 mg PO PRN PRN 01/20/18 [History Confirmed 03/15/18] Pregabalin [Lyrica] 50 mg PO BID 01/20/18 [History Confirmed 03/15/18] PFSH Medical History Nonrheumatic mitral (valve) insufficiency (Chronic) Secondary pulmonary arterial hypertension (Chronic) Non-rheumatic tricuspid valve insufficiency (Chronic) End stage renal disease (Chronic) Problem with dialysis access (Acute) Chronic anemia (Chronic) Hypertension (Chronic) Narcolepsy (Chronic) Lupus nephritis (Chronic) Degenerative disc disease, cervical (Chronic) Cervical spondylosis (Chronic) Colitis (Acute) Leukopenia (Acute) Diabetes mellitus, type II (Chronic) SLE (systemic lupus erythematosus) (Chronic) Status post left heart catheterization (Acute) Acute renal failure (Resolved) Chronic kidney disease (Resolved) Dehydration with hyponatremia (Resolved) Hyperkalemia (Resolved) Unresponsiveness (Resolved) Surgical History History of esophagogastroduodenoscopy (EGD) (Acute) Presence of surgically created arteriovenous shunt for hemodialysis (Acute 11/2017) S/P colonoscopy (Acute) S/P lymph node biopsy (Acute) S/P nasal polypectomy (Acute) Status post carpal tunnel release (Acute) Status post insertion of dialysis catheter (Acute) Status post total hip replacement, bilateral (Acute) Family History Mother Diabetes Hypertension Kidney disease Father Heart disease Hypertension Kidney disease Social History Smoking Status: Never smoker HPI LEFT WRIST PAIN: Details: PAVITHRA PAINTER is a 47 year old F here today for left elbow injury from tripping while walking her dog three weeks ago. She has left arm swelling but that was present prior to injury. She is supposed to have a fistula surgery on the left arm and has postponed that until seeing us for a plan. Denies numbness, tingling or other associated symptoms. Ortho Exam Left Elbow Swelling: Yes Skin/Wound: Yes CDI Contralateral Normal: Yes Test: Yes TTP Lateral Epicondyle ROM: Yes TTP Fracture Site Sensation: Radial: I, Ulnar: I, Median: I Assessment AND Plan 1. Closed nondisplaced fracture of neck of left radius, initial encounter H49.467P Plan called dr taylor office and informed them that it was ok to proceed with surgery but to limit weight bearing thru elbow/ wrist joints but passive rom for surgery is fine as patient has active ROM intact today with limited pain on examination. xrays show nondisplaced rad neck fracture. no issues. no indications for orif. X-rays were reviewed. There is radial neck fracture noted. Explained to wear a sling for two more weeks and begin OT. Gave the radial protocol. Follow up in a month or sooner if pain, swelling, numbness or associated symptoms, or concerns develop. All questions answered. Patient in agreement of plan. Plan Detail Other Orders Orders: Goals Decrease pain Decrease spasm Decrease inflammation Improve ROM Barriers DDD Lupus Coding Level of Care Code Off vis,est,level 4 Diagnoses Closed nondisplaced fracture of neck of left radius, initial encounter S52.345T Encounter type: initial encounter Fracture alignment: nondisplaced 03/17/18 0902 <Electronically signed by Iris Shah DO> Date Iris Shah DO Cosigner Signature: Date (if applicable) CC: OT GENERAL EVALUATION Observed: 03/11/2018 Status: F Source: [place] 7:30 AM [facility] [place] Occup[facility] [address] [place] [address] Fax REHABILITATION SERVICES INITIAL EVALUATION MR#: [id number] Acct: [id number] Name: PAVITHRA PAINTER Rep #: [id number] : 1970 47 From: Chana Monique Referring Dr.: Mitchell Womack MD Status: REG RCR Insurance: MEDICARE PART A B Eval Date: MEDICAID Patient's Visit Information PAVITHRA PAINTER is a 47 year old F, referred to Occupational Therapy by Mitchell Womack, with a diagnosis of Radial Head Fx. Date of Evaluation: 03/10/18 Occupational Therapist: Chana Monique - Subjective Subjective: Pavithra arrived in sling and negro wrap to forearm. She noted that she was walking her dog and tripped and feel over sidewalk while walking. She went around for 2 weeks prior to getting checked out. Notes radial head fx and Dr. Woods has placed in sling. Dr. womack wrote OT order. Unable to give report of status of porfirio. After looking at x-ray radial head fx minimally displaced and apears to be healing. Notes sling is cause neck to hurt some. - Pain Right Elbow 5 - Notes 5/10 pain during assessment but minimal pain with movmt t/o session. 2x grimance noted while testing fx pinch and edcuated to stop as pain occured. Pain Intensity Range: 2, 6 - Objective Objective/Observation: Some decreased sensation and strength noted. Skin closed. Scar over volar forearm due to skin graft from previous surgery. Scar closed, healed, and faded. Fistula placement dorsal anterior to medial epicondyle, some increased swelling noted t/o UE. Negro wrap removed and increased intended ovr forearm from wrap. Concerns: Notes L UE edema since placement of fistula. Will monitor and will consult with Silke OT if further garment fitting or management techniques maybe beneficial. Jose Juan manage through ROM and edema management techniques at this time. Explained she has been using negro bandage and are wrapped prior to session. Increased indentation in skin potentially indicating wrap too tight and decreased fluid movements causing some increased edema. - ROM Elbow: flex R 7-134, L 11-110 Forearm: sup R 0-59, L 0-61 Wrist: flexion R 0-45, L 0-60; ext. R 0-51, L 0-55 ROM Comments: some decreased flexion noted in L affected arms secondary to radial head fx. - Strength Cotton Tier: R 79, L 52 Lateral Pinch: R 18, L 7 pain in thumb Tripod Pinch: R 17, L 10 Tip-to-Tip Pinch: R 16, 8 Strength Comments: some pain in thumb during lateral pinch. No pain generalized to elbow when completing pinch or security advisor tasks. - Sensation Thumb: R 3.84, L 3.84 Index: R 3.84, L 3.84 Middle: R 3.84, L 3.84 Ring: R 3.84, L 3.22 Little: R 3.84, L 3.61 Sensation Comments: Hand numbness and tingling in B hands.Has neuropathy B feet. Hand numbness likley related to neuropathy from DMII. - In-Hand Manipulation Finger to Palm Translation: Mild - Right, Moderate - Left Palm to Finger Translation: Normal - Right, Mild - Right, Mild - Left, Moderate - Left - Upper Limb Functional Index ULFI Score: 16.0 - Goals Goal:: Pavithra in to increase L security advisor by 10-15 lbs to promote increased ability to maniplate with L UE 4/5 trials 80% of the time to promote increased ability to return to PLOF by d/c. Goal:: Pavithra to use pain management techniques to have no more than 1-2/10 during ADL/AIDls 4/ 5 trials 80% of the time to return to PLOF by d/c. Goal:: Pavithra to complete compensations for sensory deficits e.g. use of vision to promote safety and decrease dropping self care items 4 5 trials 80% of the time by d/c. Goal:: Pavithra to be mod I to complete joint protection and energy conservations techniques to return to progressively using L UE for ADL/IAdls 4/5 trials 80% of th time by d/c. Goal:: Pavithra to return to all ADl/IAdls with L UE with minimal pain 4/ 5trials 80% of the time by d/c. - Rehabilitation General Assessment: Pavithra arrived to OT evaluation on this date. Noted radial head fracture with date of injury about three weeks ago. Strength and ROM limited as well as increased edema noted in L UE. Notes increased edema since fistula placed into L UE around two months ago. Will completed Ot to promote B Ue strength, endurance, and increased ability to use L UE at PLOF for ADl/IADls by d/c. Rehabilitation Potential: Good - Anticipated Interventions Anticipated Interventions: A/AAROM/PROM, Strengthening, Edema Control, Modalities, Orthoses, Joint Protection/Energy Conservation, Ergonomic Education, Fine Motor Coord/Musa, ADL Training, Caregiver Training, Home Program Other Interventions: Checked with Dr. Shah office and noted no need for protective splint at this time. She is to use sling. - Visit Plan Frequency: 2x /Week Duration: 6 Weeks General Plan: OT to work on progressively treating elbow and L Ue through progressive ROM, strength, pain management, and edema control to help Pavithra return to normal ADL/IAdls functioning with L UE. TEXT: Thank you for the opportunity to evaluate your patient. For Medicare and Medicare HMO plans, please review the plan of care and approve it. It will need to be FAXED BACK to us at [phone] for Medicare purposes. Please let me know if there are questions or concerns regarding this plan of care. Physician Signature: Date: <Electronically signed by Chana Monique > 03/11/18 0730 CC: Mitchell Womack MD YULISSA Signed For Medicare only, by signing this I certify the plan of care. Physicians Signature Date CHIROPRACTIC REPORT Observed: 03/08/2018 Status: F Source: [place] 3:05 PM [facility] [address] [place] [address] [place]THIAS [place] [address] OFFICE VISIT Date of Service: 03/08/18 MR#: [id number] Acct: [id number] Name: PAVITHRA PAINTER Rep #: [id number] : 1970 Provider: Nancy Tuttle D.C. Age/Sex: 47/F [place] [facility] [place] Status: Signed Intake Vital Signs03/08/18 Height 5 ft 4 in 03/08/18 Weight: 150 lb 03/08/18 Body Mass Index (BMI) 25.7 Intake Visit Reasons: neck pain Chief Complaint: neck and mid back pain Is patient in pain?: Yes Allergies NEGRO Inhibitors Allergy (Verified 03/08/18 11:12) Angioedema lisinopril Allergy (Verified 03/08/18 11:12) Angioedema Sulfa (Sulfonamide Antibiotics) Allergy (Verified 03/08/18 11:12) Rash sulfamethoxazole [From Bactrim] Allergy (Verified 03/08/18 11:12) Rash trimethoprim [From Bactrim] Allergy (Verified 03/08/18 11:12) Rash Medications Duloxetine Hcl [Cymbalta] 120 mg PO DAILY 10/01/16 [History Confirmed 03/08/18] Hydroxychloroquine [Plaquenil] 200 mg PO BIDCM 10/01/16 [History Confirmed 03/08/18] Linagliptin [Tradjenta] 5 mg PO DAILY 10/01/16 [History Confirmed 03/08/18] Montelukast [Singulair] 10 mg PO QHS 10/01/16 [History Confirmed 03/08/18] Acyclovir [Zovirax] 400 mg PO TID PRN 10/26/16 [History Confirmed 03/08/18] Ergocalciferol [Vitamin D] 1.25 cap PO QMONTH 01/21/17 [History Confirmed 03/08/18] Amlactin Ultra Body Cream 1 applic TOPICAL DAILY PRN 02/17/17 [History Confirmed 03/08/18] Cevimeline HCl [Evoxac] 30 mg PO TID 02/17/17 [History Confirmed 03/08/18] Dextroamphetamine/Amphetamine [Adderall Xr 10 mg Capsule] 15 mg PO BID 07/22/17 [History Confirmed 03/08/18] Estradiol [Estrace] 1 mg PO QHS 09/27/17 [History Confirmed 03/08/18] omeprazole 40 mg capsule,delayed release 40 mg PO QDAY 12/08/17 [History Confirmed 03/08/18] paroxetine 10 mg tablet 10 mg PO QDAY 12/08/17 [History Confirmed 03/08/18] Sevelamer Carbonate 2,400 mg PO TID 12/09/17 [History Confirmed 03/08/18] furosemide 40 mg tablet 40 mg PO BID tab 01/11/18 [History Confirmed 03/08/18] metoprolol tartrate 25 mg tablet 25 mg PO BID 01/11/18 [History Confirmed 03/08/18] prednisone 10 mg tablet 5 mg PO DAILYCM tab 01/11/18 [History Confirmed 03/08/18] Acetaminophen [Tylenol Extra Strength] 500 tab BID PRN PRN MDD 1000 01/20/18 [History Confirmed 03/08/18] Atorvastatin Calcium [Lipitor] 20 mg PO QHS 01/20/18 [History Confirmed 03/08/18] Baclofen [Lioresal] 10 mg PO TID 01/20/18 [History Confirmed 03/08/18] Lorazepam [Ativan] 1 mg PO BID 01/20/18 [History Confirmed 03/08/18] Ondansetron HCl [Zofran] 4 mg PO PRN PRN 01/20/18 [History Confirmed 03/08/18] Pregabalin [Lyrica] 50 mg PO BID 01/20/18 [History Confirmed 03/08/18] [facility] Medical History Nonrheumatic mitral (valve) insufficiency (Chronic) Secondary pulmonary arterial hypertension (Chronic) Non-rheumatic tricuspid valve insufficiency (Chronic) End stage renal disease (Chronic) Problem with dialysis access (Acute) Chronic anemia (Chronic) Hypertension (Chronic) Narcolepsy (Chronic) Lupus nephritis (Chronic) Degenerative disc disease, cervical (Chronic) Cervical spondylosis (Chronic) Colitis (Acute) Leukopenia (Acute) Diabetes mellitus, type II (Chronic) SLE (systemic lupus erythematosus) (Chronic) Status post left heart catheterization (Acute) Acute renal failure (Resolved) Chronic kidney disease (Resolved) Dehydration with hyponatremia (Resolved) Hyperkalemia (Resolved) Unresponsiveness (Resolved) Surgical History History of esophagogastroduodenoscopy (EGD) (Acute) Presence of surgically created arteriovenous shunt for hemodialysis (Acute 11/2017) S/P colonoscopy (Acute) S/P lymph node biopsy (Acute) S/P nasal polypectomy (Acute) Status post carpal tunnel release (Acute) Status post insertion of dialysis catheter (Acute) Status post total hip replacement, bilateral (Acute) Family History Mother Diabetes Hypertension Kidney disease Father Heart disease Hypertension Kidney disease Social History Smoking Status: Never smoker second hand exposure: No alcohol intake: never substance use type: does not use caffeine: No what type of physical activity do you participate in: other HPI neck pain : Chief Complaint: neck and mid back pain Visit Number: 6 Details: PAVITHRA PAINTER is a 47 year old F who presents with neck and mid back pain. She states that she recently was put in a L arm sling causing increased neck pain. Today Pavithra rates her pain a 5/10 and describes it as a sharp and tight ache that bands across the shoulder blades, and mid back. Bending, lifting, raising her arms and twisting all cause increased pain. The patient denies any numbness, tingling, or radiculopathy. Location: neck and mid back Duration: constant Aggravating or associated factors: bending, lifting, twisting and raising arms Relieving factors: medication Pain Quality: aching, dull, sharp Exam Musc General: Yes normal gait and joint tenderness (C4, C5, C6, T2, T3, T8, L3-L5); no normal posture (anterior head carriage) Cervical Spine: loss of normal cervical lordosis, pain with cervical ROM with lateral flexion to left, with rotation to left, with lateral flexion to right and with rotation to right, cervical spasm (with areas of edema, slightly worse) bilateral lower: paracervical muscles and trapezius, cervical ROM abnormal lateral flexion to the right decreased, lateral flexion to the left decreased, rotation to left decreased, rotation to right decreased and extension decreased, other (Edema at cervicothoracic junction and upper thoracics bilaterally) Thoracic/Lumbar Spine: thoracic and lumbar spine normal to inspection, pain with thoraco-lumbar ROM with forward flexion, with rotation to the left and with rotation to the right, paraspinal tenderness bilaterally in the lower lumbar and in the mid thoracic, thoraco-lumbar ROM limited with forward flexion, thoraco-lumbar spasm bilaterally in the lower lumbar and in the mid thoracic and on the right greater than left (upper thoracic) Office Procedures Chiropractic Treatments Procedures Manipulation: 3-4 regions (C4, C6, T2, T8, L3,L5) Assessment AND Plan 1. Segmental and somatic dysfunction of lumbar region M99.03 Orders Orders: 2. Segmental and somatic dysfunction of thoracic region M99.02 Orders Orders: 3. Segmental and somatic dysfunction of cervical region M99.01 Orders Orders: Plan Detail Goals Decrease pain Decrease spasm Decrease inflammation Improve ROM Barriers DDD Lupus Follow Up 1 Week Coding Level of Care Code No Charge Diagnoses Segmental and somatic dysfunction of lumbar region M99.03 Segmental and somatic dysfunction of thoracic region M99.02 Segmental and somatic dysfunction of cervical region M99.01 Additional Codes Procedures - Manipulation: 3-4 regions (43075) 03/08/18 1505 <Electronically signed by Nancy Tuttle D.C.> Date Nancy Tuttle D.C. Cosigner Signature: Date (if applicable) CC: CHIROPRACTIC REPORT Observed: 03/08/2018 Status: F Source: [place] 1:35 PM [facility] [address] [place] [id number] OFFICE VISIT Date of Service: 03/03/18 MR#: [id number] Acct: [id number] Name: PAVITHRA PAINTER Rep #: [id number] : 1970 Provider: Nancy Tuttle D.C. Age/Sex: 47/F Location: [facility] [place] Status: Signed Intake Vital Signs03/03/18 Height 5 ft 4 in 03/03/18 Weight: 148 lb 03/03/18 Body Mass Index (BMI) 25.4 Intake Visit Reasons: neck pain Chief Complaint: neck and mid back pain Is patient in pain?: Yes Allergies NEGRO Inhibitors Allergy (Verified 03/08/18 11:12) Angioedema lisinopril Allergy (Verified 03/08/18 11:12) Angioedema Sulfa (Sulfonamide Antibiotics) Allergy (Verified 03/08/18 11:12) Rash sulfamethoxazole [From Bactrim] Allergy (Verified 03/08/18 11:12) Rash trimethoprim [From Bactrim] Allergy (Verified 03/08/18 11:12) Rash Medications Duloxetine Hcl [Cymbalta] 120 mg PO DAILY 10/01/16 [History Confirmed 03/08/18] Hydroxychloroquine [Plaquenil] 200 mg PO BIDCM 10/01/16 [History Confirmed 03/08/18] Linagliptin [Tradjenta] 5 mg PO DAILY 10/01/16 [History Confirmed 03/08/18] Montelukast [Singulair] 10 mg PO QHS 10/01/16 [History Confirmed 03/08/18] Acyclovir [Zovirax] 400 mg PO TID PRN 10/26/16 [History Confirmed 03/08/18] Ergocalciferol [Vitamin D] 1.25 cap PO QMONTH 01/21/17 [History Confirmed 03/08/18] Amlactin Ultra Body Cream 1 applic TOPICAL DAILY PRN 02/17/17 [History Confirmed 03/08/18] Cevimeline HCl [Evoxac] 30 mg PO TID 02/17/17 [History Confirmed 03/08/18] Dextroamphetamine/Amphetamine [Adderall Xr 10 mg Capsule] 15 mg PO BID 07/22/17 [History Confirmed 03/08/18] Estradiol [Estrace] 1 mg PO QHS 09/27/17 [History Confirmed 03/08/18] omeprazole 40 mg capsule,delayed release 40 mg PO QDAY 12/08/17 [History Confirmed 03/08/18] paroxetine 10 mg tablet 10 mg PO QDAY 12/08/17 [History Confirmed 03/08/18] Sevelamer Carbonate 2,400 mg PO TID 12/09/17 [History Confirmed 03/08/18] furosemide 40 mg tablet 40 mg PO BID tab 01/11/18 [History Confirmed 03/08/18] metoprolol tartrate 25 mg tablet 25 mg PO BID 01/11/18 [History Confirmed 03/08/18] prednisone 10 mg tablet 5 mg PO DAILYCM tab 01/11/18 [History Confirmed 03/08/18] Acetaminophen [Tylenol Extra Strength] 500 tab BID PRN PRN MDD 1000 01/20/18 [History Confirmed 03/08/18] Atorvastatin Calcium [Lipitor] 20 mg PO QHS 01/20/18 [History Confirmed 03/08/18] Baclofen [Lioresal] 10 mg PO TID 01/20/18 [History Confirmed 03/08/18] Lorazepam [Ativan] 1 mg PO BID 01/20/18 [History Confirmed 03/08/18] Ondansetron HCl [Zofran] 4 mg PO PRN PRN 01/20/18 [History Confirmed 03/08/18] Pregabalin [Lyrica] 50 mg PO BID 01/20/18 [History Confirmed 03/08/18] [facility] Medical History Nonrheumatic mitral (valve) insufficiency (Chronic) Secondary pulmonary arterial hypertension (Chronic) Non-rheumatic tricuspid valve insufficiency (Chronic) End stage renal disease (Chronic) Problem with dialysis access (Acute) Chronic anemia (Chronic) Hypertension (Chronic) Narcolepsy (Chronic) Lupus nephritis (Chronic) Degenerative disc disease, cervical (Chronic) Cervical spondylosis (Chronic) Colitis (Acute) Leukopenia (Acute) Diabetes mellitus, type II (Chronic) SLE (systemic lupus erythematosus) (Chronic) Status post left heart catheterization (Acute) Acute renal failure (Resolved) Chronic kidney disease (Resolved) Dehydration with hyponatremia (Resolved) Hyperkalemia (Resolved) Unresponsiveness (Resolved) Surgical History History of esophagogastroduodenoscopy (EGD) (Acute) Presence of surgically created arteriovenous shunt for hemodialysis (Acute 11/2017) S/P colonoscopy (Acute) S/P lymph node biopsy (Acute) S/P nasal polypectomy (Acute) Status post carpal tunnel release (Acute) Status post insertion of dialysis catheter (Acute) Status post total hip replacement, bilateral (Acute) Family History Mother Diabetes Hypertension Kidney disease Father Heart disease Hypertension Kidney disease Social History Smoking Status: Never smoker HPI neck pain : Chief Complaint: neck and mid back pain Visit Number: 6 Details: PAVITHRA PAINTER is a 47 year old F who presents with neck and mid back pain. She states her pain is still present and had not increased, nor decreased. Today she rates her pain a 5/10 and describes it as a tight and sharp ache that bands across the neck and mid back. Lifting, twisting, leaning forward, and raising her arms all cause increased pain. Pavithra denies any numbness, tingling or radiculopathy. Location: neck and mid back Duration: constant Aggravating or associated factors: bending, lifting, twisting Relieving factors: medication Pain Quality: aching, dull, cramping, sharp Exam Musc General: Yes normal gait and joint tenderness (C4, C5, C6, T2, T3, T8, L3-L5); no normal posture (anterior head carriage) Cervical Spine: loss of normal cervical lordosis, pain with cervical ROM with lateral flexion to left, with rotation to left, with lateral flexion to right and with rotation to right, cervical spasm (with areas of edema) bilateral lower: paracervical muscles and trapezius, cervical ROM abnormal lateral flexion to the right decreased, lateral flexion to the left decreased, rotation to left decreased, rotation to right decreased and extension decreased, other (Edema at cervicothoracic junction and upper thoracics bilaterally) Thoracic/Lumbar Spine: thoracic and lumbar spine normal to inspection, pain with thoraco-lumbar ROM with forward flexion, with rotation to the left and with rotation to the right, paraspinal tenderness bilaterally in the lower lumbar and in the mid thoracic, thoraco-lumbar ROM limited with forward flexion, thoraco-lumbar spasm bilaterally in the lower lumbar and in the mid thoracic and on the right greater than left (upper thoracic) Office Procedures Chiropractic Treatments Procedures Manipulation: 3-4 regions (C4, C6, T2, T8, L3, L5) Assessment AND Plan 1. Segmental and somatic dysfunction of lumbar region M99.03 Orders Orders: 2. Segmental and somatic dysfunction of cervical region M99.01 Orders Orders: 3. Segmental and somatic dysfunction of thoracic region M99.02 Orders Orders: Plan Detail Goals Decrease pain Decrease spasm Decrease inflammation Improve ROM Barriers DDD Lupus Follow Up 1 x week Coding Level of Care Code No Charge Diagnoses Segmental and somatic dysfunction of lumbar region M99.03 Segmental and somatic dysfunction of cervical region M99.01 Segmental and somatic dysfunction of thoracic region M99.02 Additional Codes Procedures - Manipulation: 3-4 regions ([id number]) 03/08/18 1335 <Electronically signed by Nancy Tuttle D.C.> Date Nancy Tuttle D.C. Cosigner Signature: Date (if applicable) CC: SURGERY VISIT REPORT Observed: 03/08/2018 Status: F Source: [place] 11:44 [facility] [place] [facility] [address] [place] [address] [address] [place] [address] OFFICE VISIT Date of Service: 03/08/18 MR#: [id number] Acct: [id number] Name: PAVITHRA PAINTER Rep #: [id number] : 1970 Provider: Anabela Lewis PA-C Age/Sex: 47/F Location: [facility] Status: Signed Intake Vital Signs03/08/18 Height 5 ft 4 in 03/08/18 Weight: 150 lb 03/08/18 Body Mass Index (BMI) 25.7 Intake Visit Reasons: update h AND p 7-5 fistulogram Chief Complaint: neck and mid back pain Film Or Tape Librarian Required: No Is patient in pain?: No Allergies NEGRO Inhibitors Allergy (Verified 03/08/18 11:12) Angioedema lisinopril Allergy (Verified 03/08/18 11:12) Angioedema Sulfa (Sulfonamide Antibiotics) Allergy (Verified 03/08/18 11:12) Rash sulfamethoxazole [From Bactrim] Allergy (Verified 03/08/18 11:12) Rash trimethoprim [From Bactrim] Allergy (Verified 03/08/18 11:12) Rash Medications Duloxetine Hcl [Cymbalta] 120 mg PO DAILY 10/01/16 [History Confirmed 03/08/18] Hydroxychloroquine [Plaquenil] 200 mg PO BIDCM 10/01/16 [History Confirmed 03/08/18] Linagliptin [Tradjenta] 5 mg PO DAILY 10/01/16 [History Confirmed 03/08/18] Montelukast [Singulair] 10 mg PO QHS 10/01/16 [History Confirmed 03/08/18] Acyclovir [Zovirax] 400 mg PO TID PRN 10/26/16 [History Confirmed 03/08/18] Ergocalciferol [Vitamin D] 1.25 cap PO QMONTH 01/21/17 [History Confirmed 03/08/18] Amlactin Ultra Body Cream 1 applic TOPICAL DAILY PRN 02/17/17 [History Confirmed 03/08/18] Cevimeline HCl [Evoxac] 30 mg PO TID 02/17/17 [History Confirmed 03/08/18] Dextroamphetamine/Amphetamine [Adderall Xr 10 mg Capsule] 15 mg PO BID 07/22/17 [History Confirmed 03/08/18] Estradiol [Estrace] 1 mg PO QHS 09/27/17 [History Confirmed 03/08/18] omeprazole 40 mg capsule,delayed release 40 mg PO QDAY 12/08/17 [History Confirmed 03/08/18] paroxetine 10 mg tablet 10 mg PO QDAY 12/08/17 [History Confirmed 03/08/18] Sevelamer Carbonate 2,400 mg PO TID 12/09/17 [History Confirmed 03/08/18] furosemide 40 mg tablet 40 mg PO BID tab 01/11/18 [History Confirmed 03/08/18] metoprolol tartrate 25 mg tablet 25 mg PO BID 01/11/18 [History Confirmed 03/08/18] prednisone 10 mg tablet 5 mg PO DAILYCM tab 01/11/18 [History Confirmed 03/08/18] Acetaminophen [Tylenol Extra Strength] 500 tab BID PRN PRN MDD 1000 01/20/18 [History Confirmed 03/08/18] Atorvastatin Calcium [Lipitor] 20 mg PO QHS 01/20/18 [History Confirmed 03/08/18] Baclofen [Lioresal] 10 mg PO TID 01/20/18 [History Confirmed 03/08/18] Lorazepam [Ativan] 1 mg PO BID 01/20/18 [History Confirmed 03/08/18] Ondansetron HCl [Zofran] 4 mg PO PRN PRN 01/20/18 [History Confirmed 03/08/18] Pregabalin [Lyrica] 50 mg PO BID 01/20/18 [History Confirmed 03/08/18] [facility] Medical History Nonrheumatic mitral (valve) insufficiency (Chronic) Secondary pulmonary arterial hypertension (Chronic) Non-rheumatic tricuspid valve insufficiency (Chronic) End stage renal disease (Chronic) Problem with dialysis access (Acute) Chronic anemia (Chronic) Hypertension (Chronic) Narcolepsy (Chronic) Lupus nephritis (Chronic) Degenerative disc disease, cervical (Chronic) Cervical spondylosis (Chronic) Colitis (Acute) Leukopenia (Acute) Diabetes mellitus, type II (Chronic) SLE (systemic lupus erythematosus) (Chronic) Status post left heart catheterization (Acute) Acute renal failure (Resolved) Chronic kidney disease (Resolved) Dehydration with hyponatremia (Resolved) Hyperkalemia (Resolved) Unresponsiveness (Resolved) Surgical History History of esophagogastroduodenoscopy (EGD) (Acute) Presence of surgically created arteriovenous shunt for hemodialysis (Acute 11/2017) S/P colonoscopy (Acute) S/P lymph node biopsy (Acute) S/P nasal polypectomy (Acute) Status post carpal tunnel release (Acute) Status post insertion of dialysis catheter (Acute) Status post total hip replacement, bilateral (Acute) Family History Mother Diabetes Hypertension Kidney disease Father Heart disease Hypertension Kidney disease Social History Smoking Status: Never smoker second hand exposure: No alcohol intake: never substance use type: does not use caffeine: No what type of physical activity do you participate in: other HPI HPI HPI: PAVITHRA PAINTER, is a 47 F I am following for chronic renal failure. Dr. Valverde performed a right tunneled chest catheters and transposition left upper arm basilic vein to brachial artery arteriovenous fistula creation on 12/10/2017. Patient noted her catheters were caught on a pillow while napping. She rolled over and the catheters were pulled out. Dr. Sheth replaced the tunneled right chest catheters on 02/01. She has been dialyzing well. She notes minimal amount of oozing from the catheter site. She dialyzes on M, W, F at [facility] dialysis igo. 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 She denies recent health changes, illnesses, and hospitalizations. Patient had an AV fistula graft scan on 01/25/18 due to continued swelling of the left upper extremity since her fistula was created. Imaging demonstrated no significant evidence of stenosis. Patient returns for an update history and physical for a fistulogram. She had a fall several weeks ago. She noted pain at the elbow. An x-ray was obtained of the right elbow on 03/01/18 which demonstrated a fracture of the radial head. Patient was evaluated by orthopedics who is not recommending surgical intervention. Patient is currently in a sling. She elevates her arm. ROS General General: Yes fatigue; no weight change, appetite, colon cancer, breast cancer or weakness HEENT HEENT: No difficulty swallowing, eye injury, eye surgery, swollen glands or hoarseness Endo Endocrine: Yes diabetes mellitus; no thyroid disease, thyroid cancer, Hair loss, heat intolerance or cold intolerance Musc Musculoskeletal: No back problems, arthritis, rheumatoid arthritis, gout or joint pain Cardio Cardiovascular: Yes high blood pressure; no murmur, pacemaker, heart disease, atrial fibrillation, heart attack, heart stent, palpitations, shortness of breat with exertion or chest pain Resp Respiratory: No shortness of breath, No sleep apnea, No cough, No COPD, No asthma, No emphysema, No wheezing Gastro Gastrointestinal: No abdominal pain, No nausea or vomiting, No diarrhea, No constipation, No blood in stool, No acid reflux, No hemorrhoids, No ulcers, No gallbladder problem, No black,tarry stools Johny Hematologic: No blood thinners, No blood disorders, No bleeding, Yes anemia, No blood clots Neuro Neurologic: No weakness Exam Const General: cooperative, healthy appearing, comfortable, no acute distress [facility] Head: normal to inspection Eyes General: appearance normal, both eyes and all related structures Neck Neck mass: No Resp Effort AND Inspection: normal respiratory effort Auscultation: clear to auscultation bilaterally Cardio Rate: regular rate Rhythm: regular rhythm Heart Sounds: no murmurs GI Inspection: normal to inspection Palpation: soft Auscultation: normal bowel sounds Skin General: no rashes or lesions noted Neuro General: no focal motor deficits, CN's II-XI intact bilaterally Extrem Other: Left upper extremity AV fistula- good pulse, diminished bruit and thrill. Moderate amount of swelling noted throughout the entire arm. This is unchanged from previous evaluations. Psych Affect: flat Assessment AND Plan Problems 1. Problem with dialysis access, subsequent encounter T82.761D Plan Dr. Valverde will plan to perform a left upper extremity AV fistulogram. Procedure details, risks and benefits have been reviewed. Patient has had the opportunity to ask and have questions answered. Patient verbally understands and agrees with the plan. Plan Detail Goals Decrease pain Decrease spasm Decrease inflammation Improve ROM Barriers DDD Lupus Coding Level of Care Code No Charge Diagnoses Problem with dialysis access, subsequent encounter T82.661D Encounter type: subsequent encounter 03/08/18 1144 <Electronically signed by Anabela Lewis PA-C> Date Anabela Lewis PA-C Cosigner Signature: Date (if applicable) CC: ELBOW MIN 3 VIEWS Observed: 03/04/2018 Status: F Source: [place] 9:25 AM [facility] [place] [facility] Imaging Services [address] [place] [id number] Elbow min 3 Views MR#: [id number] Acct: [id number] Name: PAVITHRA PAINTER Rep #: [id number] : 1970 F 47 From: Dariel Aguilar MD PCP: Vu GARCIA,Mitchell Yadav Status: REG CLI Study: Elbow min 3 Views Date of Exam: 03/04/18 Exam# [id number] Ordering Dr: Iris Shah DO STUDY: X-RAY - LEFT ELBOW REASON FOR EXAM: Female, 47 years old. Fracture follow-up. TECHNIQUE: 3 view(s) of the elbow. COMPARISON: 03/01/2018. FINDINGS: Continued normal position of all previous radial neck fracture. No displacement or impaction. No angulation. The fracture line is less evident suggestive of interval healing. No other fractures. Normal articulations. Diffuse soft tissue swelling. Numerous surgical clips. RAD/Elbow min 3 Views IMPRESSION: Evidence of interval healing of radial neck fracture, in anatomic alignment and position. Electronically Signed: Dariel Aguilar MD at 20:11 EDT , Service support , CC: Iris Shah DO; Mitchell Womack MD Electric Tripper Machine Operator: Signed DOWNTIME REPORT Observed: 03/03/2018 Status: F Source: [place] 12:25 PM [facility] Medical Records Department [address] [place] [address] Downtime Report MR#: [id number] Acct: [id number] Name: MADINAPAVITHRA Marcos Rep #: [id number] : 1970 47 From: Sy Simeon PCP: Mitchell Womack MD, Chi Status: REG CLI This patient was seen during an EMR downtime February 14, 2018 - February 21, 2018. This patient may have a combination of paper and electronic documentation or all paper documentation. All documentation is viewable within the e-chart portion of [employer] for each patient visit. STRESS TEST ECHO W/O Observed: 03/03/2018 Status: F Source: [place] CONTRAST 10:25 AM [facility] Cardiovascular Services [address] [place] [address] Stress Test Echo w/o Contrast MR#: [id number] Acct: [id number] Name: PAVITHRA PAINTER Rep #: [id number] : 1970 47 From: Cesar Roberts MD Primary Care: Mitchell Womack MD, Chi Status: REG CLI Ordering Dr: Cesar Roberts MD Sex: F A Reason For Study: Pre-Op Stress Results Protocol: Ross Protocol Maximum Predicted HR: 175 bpm Target HR: 149 bpm% Max imum Predicted HR: 79 % DurationHeart Rate Stage (mm:ss) (bpm) BPCom ment Baseline 90 132/84 Ross Protocol Stage I 3:00 12 3 126/86 Ross Protocol Stage II 3:00 13 9 140/82Hip/Knee Pain, SOB Recovery 98 146/84 Stress Duration: 6:00 mm:ss Maximum Stress HR: 139 bpmM ETS: 7 Baseline Echocardiogram Findings The estimated ejection fraction is 65 %. Stress Echo Wall motion Data Resting WMIntermediate WMStress WM Resting Wall Motion Wall Motion Stress Ejection Fraction 65 %. Ejection Fraction 75 %. EKG Data Normal Sinus Rhythm. Normal Sinus Rhythm; No Acute Changes. Symptoms with Stress No Angina With Stress. Interpretation Summary 1) Adequate Stress Echocardiogram; Negative For Ischemia By EKG and Echo Criteria 2) No Anginal Symptoms 3) No Arrhythmias Noted 4) HTN BP Response To Exercise 5) Average Exercise Capacity For Age 6) Final LVEF 75%. The estimated ejection fraction is 65 %. Normal, adequate, treadmill echocardiogram. Negative for ischemia by EKG and echocardiographic criteria. Patient achieved adequate stress test with rate pressure product. No anginal symptoms noted. No arrhythmias noted. Appropriate blood pressure response to exercise. Test terminated due to hip and knee pain and shortness of breath. Final LVEF is 75%. No complications. Ordering Physician: Cesar Roberts Referring Physician: Cesar Roberts Performed By: Bernabe Campos RCS 03/03/18 1024 Date Cesar Roberts MD CC: Cesar Roberts MD; Mitchell Womack MD Date Dictated: 02/17/18 1306 Date Transcribed: 03/03/18 1024 Electric Tripper Machine Operator: Signed CHIROPRACTIC REPORT Observed: 03/01/2018 Status: F Source: [place] 4:25 PM [facility] [place] [facility] [address] [place] [id number] OFFICE VISIT Date of Service: 03/01/18 MR#: [id number] Acct: [id number] Name: PAVITHRA PAINTER Rep #: [id number] : 1970 Provider: Nancy Tuttle D.C. Age/Sex: 47/F [place] [facility] [place] Status: Signed Intake Vital Signs03/01/18 Height 5 ft 4 in 03/01/18 Weight: 148 lb 03/01/18 Body Mass Index (BMI) 25.4 Intake Visit Reasons: neck pain Is patient in pain?: Yes Allergies NEGRO Inhibitors Allergy (Verified 02/10/18 10:15) Angioedema lisinopril Allergy (Verified 02/10/18 10:15) Angioedema Sulfa (Sulfonamide Antibiotics) Allergy (Verified 02/10/18 10:15) Rash sulfamethoxazole [From Bactrim] Allergy (Verified 02/10/18 10:15) Rash trimethoprim [From Bactrim] Allergy (Verified 02/10/18 10:15) Rash Medications Duloxetine Hcl [Cymbalta] 120 mg PO DAILY 10/01/16 [History Confirmed 02/10/18] Hydroxychloroquine [Plaquenil] 200 mg PO BIDCM 10/01/16 [History Confirmed 02/10/18] Linagliptin [Tradjenta] 5 mg PO DAILY 10/01/16 [History Confirmed 02/10/18] Montelukast [Singulair] 10 mg PO QHS 10/01/16 [History Confirmed 02/10/18] Acyclovir [Zovirax] 400 mg PO TID PRN 10/26/16 [History Confirmed 02/10/18] Ergocalciferol [Vitamin D] 1.25 cap PO QMONTH 01/21/17 [History Confirmed 02/10/18] Amlactin Ultra Body Cream 1 applic TOPICAL DAILY PRN 02/17/17 [History Confirmed 02/10/18] Cevimeline HCl [Evoxac] 30 mg PO TID 02/17/17 [History Confirmed 02/10/18] Dextroamphetamine/Amphetamine [Adderall Xr 10 mg Capsule] 15 mg PO BID 07/22/17 [History Confirmed 02/10/18] Estradiol [Estrace] 1 mg PO QHS 09/27/17 [History Confirmed 02/10/18] omeprazole 40 mg capsule,delayed release 40 mg PO QDAY 12/08/17 [History Confirmed 02/10/18] paroxetine 10 mg tablet 10 mg PO QDAY 12/08/17 [History Confirmed 02/10/18] Sevelamer Carbonate 2,400 mg PO TID 12/09/17 [History Confirmed 02/10/18] furosemide 40 mg tablet 40 mg PO BID tab 01/11/18 [History Confirmed 02/10/18] metoprolol tartrate 25 mg tablet 25 mg PO BID 01/11/18 [History Confirmed 02/10/18] prednisone 10 mg tablet 5 mg PO DAILYCM tab 01/11/18 [History Confirmed 02/10/18] Acetaminophen [Tylenol Extra Strength] 500 tab BID PRN PRN MDD 1000 01/20/18 [History Confirmed 02/10/18] Atorvastatin Calcium [Lipitor] 20 mg PO QHS 01/20/18 [History Confirmed 02/10/18] Baclofen [Lioresal] 10 mg PO TID 01/20/18 [History Confirmed 02/10/18] Lorazepam [Ativan] 1 mg PO BID 01/20/18 [History Confirmed 02/10/18] Ondansetron HCl [Zofran] 4 mg PO PRN PRN 01/20/18 [History Confirmed 02/10/18] Pregabalin [Lyrica] 50 mg PO BID 01/20/18 [History Confirmed 02/10/18] [facility] Medical History Nonrheumatic mitral (valve) insufficiency (Chronic) Secondary pulmonary arterial hypertension (Chronic) Non-rheumatic tricuspid valve insufficiency (Chronic) End stage renal disease (Chronic) Problem with dialysis access (Acute) Chronic anemia (Chronic) Hypertension (Chronic) Narcolepsy (Chronic) Lupus nephritis (Chronic) Degenerative disc disease, cervical (Chronic) Cervical spondylosis (Chronic) Colitis (Acute) Leukopenia (Acute) Diabetes mellitus, type II (Chronic) SLE (systemic lupus erythematosus) (Chronic) Status post left heart catheterization (Acute) Acute renal failure (Resolved) Chronic kidney disease (Resolved) Dehydration with hyponatremia (Resolved) Hyperkalemia (Resolved) Unresponsiveness (Resolved) Surgical History History of esophagogastroduodenoscopy (EGD) (Acute) Presence of surgically created arteriovenous shunt for hemodialysis (Acute 11/2017) S/P colonoscopy (Acute) S/P lymph node biopsy (Acute) S/P nasal polypectomy (Acute) Status post carpal tunnel release (Acute) Status post insertion of dialysis catheter (Acute) Status post total hip replacement, bilateral (Acute) Family History Mother Diabetes Hypertension Kidney disease Father Heart disease Hypertension Kidney disease Social History Smoking Status: Never smoker second hand exposure: No alcohol intake: never substance use type: does not use caffeine: No what type of physical activity do you participate in: other HPI neck pain : Chief Complaint: neck and mid back pain Visit Number: 5 Details: PAVITHRA PAINTER is a 47 year old F who presents with neck and mid back pain. She states that overall her pain has not decreased, nor increased. Today she rates her pain a 4/10 and describes it as a deep and tight ache that can be constant. Bending, lifting, twisting and leaning from side to side causes increased pain, at times she does experience some numbness and tingling into the hands. Location: neck and mid back Duration: constant Aggravating or associated factors: bending, lifting, twisting Pain Quality: aching, dull, cramping, sharp Exam Musc General: Yes normal gait and joint tenderness (C4, C5, C6, T2, T3, T8, L3-L5); no normal posture (anterior head carriage) Cervical Spine: loss of normal cervical lordosis, pain with cervical ROM with lateral flexion to left, with rotation to left, with lateral flexion to right and with rotation to right, cervical spasm (with areas of edema) bilateral lower: paracervical muscles and trapezius, cervical ROM abnormal lateral flexion to the right decreased, lateral flexion to the left decreased, rotation to left decreased, rotation to right decreased and extension decreased, other (Edema at cervicothoracic junction and upper thoracics bilaterally) Thoracic/Lumbar Spine: thoracic and lumbar spine normal to inspection, pain with thoraco-lumbar ROM with forward flexion, with rotation to the left and with rotation to the right, paraspinal tenderness bilaterally in the lower lumbar and in the mid thoracic, thoraco-lumbar ROM limited with forward flexion, thoraco-lumbar spasm bilaterally in the lower lumbar and in the mid thoracic and on the right greater than left (upper thoracic) Office Procedures Chiropractic Treatments Procedures Manipulation: 3-4 regions (C4, C6, T2,T8, L3, L5) Assessment AND Plan Problems 1. Segmental and somatic dysfunction of lumbar region M99.03 2. Segmental and somatic dysfunction of thoracic region M99.02 3. Segmental and somatic dysfunction of cervical region M99.01 Plan Continue with acute care treatment plan. Orders Orders: Plan Detail Goals Decrease pain Decrease spasm Decrease inflammation Improve ROM Barriers DDD Lupus Follow Up 2 x week Coding Level of Care Code No Charge Diagnoses Segmental and somatic dysfunction of lumbar region M99.03 Segmental and somatic dysfunction of thoracic region M99.02 Segmental and somatic dysfunction of cervical region M99.01 Additional Codes Procedures - Manipulation: 3-4 regions (85083) 03/01/18 1625 <Electronically signed by Nancy Tuttle D.C.> Date Nancy Tuttle D.C. Cosigner Signature: Date (if applicable) CC: WRIST MIN 3 VIEWS Observed: 03/01/2018 Status: F Source: [place] 3:18 PM [facility] [place] [facility] Imaging Services [address] [place] [address] Wrist min 3 Views MR#: [id number] Acct: [id number] Name: PAVITHRA PAINTER Rep #: [id number] : 1970 F 47 From: Hector Carranza MD PCP: Vu GARCIA,Mitchell Chi Status: REG CLI Study: Wrist min 3 Views Date of Exam: 03/01/18 Exam# [id number] Ordering Dr: Mitchell Womack MD STUDY: X-RAY - LEFT WRIST REASON FOR EXAM: Female, 47 years old. Injury several weeks ago, history of fistula surgery and graft TECHNIQUE: 3 view(s) of the wrist were obtained. COMPARISON: None. FINDINGS: Normal visualized distal radius and ulna. Normal radiocarpal articulation. Normal distal radioulnar articulation. Normal carpal bones. Normal carpal articulations. Normal carpometacarpal articulation of the thumb. Normal second through fifth carpometacarpal articulations. Normal visualized metacarpal bones. Surgical clips are seen in the soft tissues of the anterior lateral wrist. RAD/Wrist min 3 Views IMPRESSION: The osseous structures and articular surfaces of the left wrist appear within normal limits. Electronically Signed: Hector Carranza MD at 16:10 EDT , Service support , CC: Mitchell Womack MD Electric Tripper Machine Operator: Signed FOREARM 2 VIEWS Observed: 03/01/2018 Status: F Source: [place] 3:18 PM [facility] [place] [facility] Imaging Services [address] [place] [address] Forearm 2 Views MR#: [id number] Acct: [id number] Name: PAVITHRA PAINTER Rep #: [id number] : 1970 F 47 From: Lupillo Jennings PCP: Mitchell Womack MD, Chi Status: REG CLI Study: Forearm 2 Views Date of Exam: 03/01/18 Exam# [id number] Ordering Dr: Mitchell Womack MD STUDY: X-RAY - LEFT RADIUS AND ULNA REASON FOR EXAM: Female, 47 years old. Pain in forearm. Injury several weeks ago. TECHNIQUE: 2 view(s) of the forearm. COMPARISON: None. FINDINGS: There is no demonstrated soft tissue swelling. Alignment is normal. Minimally displaced transverse radial neck fracture. Ulna is normal. Surgical clips in the medial soft tissue of the distal upper arm and the lateral soft tissues of the proximal forearm, as well as volar soft tissue at the level of the distal radius. RAD/Forearm 2 Views IMPRESSION: Minimally displaced radial neck fracture. Electronically Signed: Lupillo Jennings MD at 8:09 EDT , Service support , CC: Mitchell Womack MD Electric Tripper Machine Operator: Signed HAND MIN 3 VIEWS Observed: 03/01/2018 Status: F Source: [place] 3:18 PM [facility] [place] [facility] Imaging Services [address] [place] [address] Hand Min 3 Views MR#: [id number] Acct: [id number] Name: PAVITHRA PAINTER Rep #: [id number] : 1970 F 47 From: Lupillo Jennings PCP: Mitchell Womack MD, Chi Status: REG CLI Study: Hand Min 3 Views Date of Exam: 03/01/18 Exam# [id number] Ordering Dr: Mitchell Womack MD STUDY: X-RAY - LEFT HAND REASON FOR EXAM: Female, 47 years old. Pain in forearm. Injury several weeks ago. TECHNIQUE: 3 view(s) of the hand. COMPARISON: None. FINDINGS: Normal radiocarpal articulation. Normal distal radioulnar joint. Normal visualized carpal bones. Normal carpal articulations Normal carpometacarpal articulation of the thumb. Normal second through fifth carpometacarpal joints. Normal metacarpi. Normal metacarpophalangeal joint of the thumb. Normal interphalangeal joint of the thumb. Normal proximal and distal phalanges of the thumb. Normal metacarpophalangeal joints of the second through fifth fingers. Normal proximal and distal interphalangeal joints of the second through fifth fingers. Normal phalanges of the second through fifth fingers. Soft tissue swelling dorsum hand. Surgical clips volar aspect of the distal forearm RAD/Hand Min 3 Views IMPRESSION: Soft tissue swelling dorsum of hand. Electronically Signed: Lupillo Jennings MD at 8:10 EDT , Service support , CC: Mithcell Womack MD Electric Tripper Machine Operator: Signed ELBOW MIN 3 VIEWS Observed: 03/01/2018 Status: F Source: [place] 3:18 PM [facility] [place] [facility] Imaging Services [address] [place] [address] Elbow min 3 Views MR#: [id number] Acct: [id number] Name: PAVITHRA PAINTER Rep #: [id number] : 1970 F 47 From: Lupillo Jennings PCP: Mitchell Womack MD, Chi Status: REG CLI Study: Elbow min 3 Views Date of Exam: 03/01/18 Exam# [id number] Ordering Dr: Mitchell Womack MD STUDY: X-RAY - LEFT ELBOW REASON FOR EXAM: Female, 47 years old. Pain in the forearm. Injury several weeks ago. History of fistula surgery with graft. TECHNIQUE: 3 view(s) of the elbow. COMPARISON: None. FINDINGS: Alignment is normal. Transverse minimally displaced radial neck fracture. No other fractures identified. Surgical clips in the soft tissue of the distal upper arm and proximal forearm. RAD/Elbow min 3 Views IMPRESSION: Minimally displaced radial neck fracture. N.B. : Cyn Noland MA, Other, confirmed on 03/02/2018 13:35:31 (ET) that the referring physician received the results and did not require a verbal consultation. Electronically Signed: Lupillo Jennings MD at 8:06 EDT , Service support , N.B. : Cyn Noland MA, Other, confirmed on 03/02/2018 13:35:31 (ET) that the referring physician received the results and did not require a verbal consultation. CC: Mitchell Womack MD Electric Tripper Machine Operator: Signed RE-EVALUATION - PT (1) Observed: 03/01/2018 Status: F Source: [place] 1:29 PM [facility] [place] [facility] [address] [place] [address] Fax REEVALUATION / MEDICARE RECERTIFICATION PHYSICAL THERAPY MR#: [id number] Acct: [id number] Name: PAVITHRA PAINTER Rep #: [id number] : 1970 47 From: Maureen Solis PT, Cert. MDT Referring Dr.: Mitchell Womack MD Status: REG RCR Insurance: MEDICARE PART A B MEDICAID Mitchell Womack, It has been my pleasure to treat PAVITHRA PAINTER over the last 7 visits for DEBILITY. Please see the progress note below for an update on the physical therapy plan of care! Subjective: PATIENT REPORTS SHE WANTS TO RESUME PT TO TRY TO MEET HER ORIGINAL GOAL OF BEING ABLE TO WALK TWO BLOCKS. SHE STATES SHE FELL A COUPLE WEEKS AGO ON THE SIDEWALK WALKING THE DOG AND SHE SKINNED UP HER KNEES AND SHE LANDED ON HER LEFT UE. SHE REPORTS SHE CAN NOW BARELY MOVE OR ROTATE HER ARM WITHOUT PAIN. SHE STATES IT IS SWOLLEN BUT IT WAS ALREADY SWOLLEN BEFORE THE FALL DUE TO THE FISTULA POSSIBLY BEING BLOCKED. FISTULAGRAGN PENDING. SHE REPORTS SHE HAS NOT HAD HER LEFT UE EXAMINED SINCE THE FALL BUT SHE HAS AN APPOINTMENT WITH DR. WOMACK THIS AFTERNOON. PATIENT REPORTS SHE FEELS LIKE SHE WAS MAKING PROGRESS WITH PT BEFORE SHE HAD TO STOP COMING BECAUSE SHE ACCIDENTALLY PULLED OUT HER DIALYSIS CATHETERAND HAD TO HAVE SURGERY TO REPLACE IT. ALSO WAS IMMOBILIZED BY THE FALL. WANTS TO RESUME PT DUE TO PROGRESS SHE WAS MAKING BUT NOT MEETING GOAL YET. STARTED SEEING A CHIROPRACTOR (DR. TUTTLE) A FEW WEEKS AGO AND NO EFFECT YET PER PATIENT REPORT. Objective/Function: OVER ALL, PATIENT HAS IMPROVED SINCE INITIAL EVAL INTERMS OF GENERAL GAIT, BALANCE AND STRENGTH (LUE NT). UPON EXAM: Sitting Posture: POOR. Standing Posture: POOR. PATIENT IS VERY SLOUCHED WITH ROUNDED SHOULDERS AND FORWARD HEAD. Postural strength: POOR. Other Observations: INDEP GAIT INTO PT WITHOUT AD WITH SLOW CADANCE AND NO LOB OR SOB. INDEP TRANSFER SIT TO STAND WITHOUT UE ASSIST. Motor deficit: RIGHT UE AND LLE STRENGTH GROSSLY 4 TO 5/5 WITH MMT'ING NOW. THIS IS AN IMPROVEMENT FROM INITIAL EVAL. (LEFT UE AND SHAN WRISTS AND HANDS NT). ROM deficit: SHAN UE AND LE ROM WFL. Lumbar mvmt loss: flex - NIL. ext - MOD TO ALBERTO. R SG - MIN. L SG - MIN. Core strength: POOR. Scapular Strength: POOR. Cervical Mvmt Loss: CERVICAL ROM IS WFL ALL PLANES. OTHER: PATIENT HAS GENERALIZED WEEK AND POOR ENDURANCE. SHE IS ABLE TO SLS ON EACH LEG WITHOUT UE ASSIST X > 20 SECONDS EACH. HER ENTIRE LEFT UE IS EDEMATOUS. OT CONSULT RECOMMENDED AGAIN ESPECIALLY WITH THE RECENT FALL. PATIENT PLANS TO DISCUSS WITH DR. WOMACK TODAY. FURTHER WRIST AND HAND TESTING DEFERRED TO OT. LEFS HAS IMPROVED FROM 27 TO 36. RE-INTRO TO THER EX TODAY WAS CHALLENGING WITH PATIENT HAVING MILD SOB WITH STRENGTHENING AND DIFFICULTY WITH BALANCE ACTIVITIES. Plan Plan: *LEFT CENTRAL NOAH LINE*. *RIGHT DIALYSIS CATHETER*. HOLD ANY LEFT UE TREATMENT UNTIL OK'D BY DR. WOMACK AND/OR OT. POSTURE CORRECTION/STRENGTHENING, INSTRUCTION IN APPROPRIATE BODY MECHANICS. CORE STRENGTHENING. SHAN UE AND LE STRENGTHENING. HEP INSTRUCTION. Goals Goal 1:: INDEP AND SAFE GAIT ON ALL SURFACES WITH LEAST ASSISTIVE DEVICE X 1600 FEET WITH MILD SOB. Goal Time Frame: 4-6 Weeks Goal Progress: Progressing Goal 2:: INDEP HEP FOR GENERAL UPPER AND LOWER BODY STRENGTHEING FOR CONTINUED IMPROVEMENT ONCE FORMAL PT CONCLUDES. Goal Time Frame: 4-6 Weeks Goal Progress: Progressing Anticipated Interventions Patient/Client Instruction: Educate patient on: Condition, Plan of Care, Risk Factors, Benefits of Fitness Program For the Purpose of:: To improve self management Therapeutic Exercise to Include: Strength training, Endurance training, Balance training, Body mechanics, Postural training, Dynamic Lumbar Stabilization, Scapular Strength/Stabilization For the Purpose of:: To improve muscle performance and motor function, To increase tolerance to activity/condition/position, To improve ability of physical actions for home/community/work/leisure, To improve gait and locomotor functions, To improve endurance, To improve balance Please do not hesitate to contact me at [phone] by phone or if you have questions or concerns regarding this new plan of care! Sincerely, Maureen Solis <Electronically signed by Maureen Solis PT, Cert. MDT> 03/01/18 1329 CC: Mitchell Womack MD LUCILA Signed For Medicare only, by signing this I certify the plan of care. Physicians Signature Date CHIROPRACTIC REPORT Observed: 02/24/2018 Status: F Source: [place] 4:44 PM [facility] [address] [place] [address] OFFICE VISIT Date of Service: 02/24/18 MR#: [id number] Acct: [id number] Name: PAVITHRA PAINTER Rep #: [id number] : 1970 Provider: Nancy Tuttle D.C. Age/Sex: 47/F [place] [facility] [place]: Signed Intake Vital Signs02/24/18 Height 5 ft 4 in 02/24/18 Weight: 148 lb 02/24/18 Body Mass Index (BMI) 25.4 Intake Chief Complaint: recheck fistula swelling/ H AND P for cath insertion Allergies NEGRO Inhibitors Allergy (Verified 02/10/18 10:15) Angioedema lisinopril Allergy (Verified 02/10/18 10:15) Angioedema Sulfa (Sulfonamide Antibiotics) Allergy (Verified 02/10/18 10:15) Rash sulfamethoxazole [From Bactrim] Allergy (Verified 02/10/18 10:15) Rash trimethoprim [From Bactrim] Allergy (Verified 02/10/18 10:15) Rash Medications Duloxetine Hcl [Cymbalta] 120 mg PO DAILY 10/01/16 [History Confirmed 02/10/18] Hydroxychloroquine [Plaquenil] 200 mg PO BIDCM 10/01/16 [History Confirmed 02/10/18] Linagliptin [Tradjenta] 5 mg PO DAILY 10/01/16 [History Confirmed 02/10/18] Montelukast [Singulair] 10 mg PO QHS 10/01/16 [History Confirmed 02/10/18] Acyclovir [Zovirax] 400 mg PO TID PRN 10/26/16 [History Confirmed 02/10/18] Ergocalciferol [Vitamin D] 1.25 cap PO QMONTH 01/21/17 [History Confirmed 02/10/18] Amlactin Ultra Body Cream 1 applic TOPICAL DAILY PRN 02/17/17 [History Confirmed 02/10/18] Cevimeline HCl [Evoxac] 30 mg PO TID 02/17/17 [History Confirmed 02/10/18] Dextroamphetamine/Amphetamine [Adderall Xr 10 mg Capsule] 15 mg PO BID 07/22/17 [History Confirmed 02/10/18] Estradiol [Estrace] 1 mg PO QHS 09/27/17 [History Confirmed 02/10/18] omeprazole 40 mg capsule,delayed release 40 mg PO QDAY 12/08/17 [History Confirmed 02/10/18] paroxetine 10 mg tablet 10 mg PO QDAY 12/08/17 [History Confirmed 02/10/18] Sevelamer Carbonate 2,400 mg PO TID 12/09/17 [History Confirmed 02/10/18] furosemide 40 mg tablet 40 mg PO BID tab 01/11/18 [History Confirmed 02/10/18] metoprolol tartrate 25 mg tablet 25 mg PO BID 01/11/18 [History Confirmed 02/10/18] prednisone 10 mg tablet 5 mg PO DAILYCM tab 01/11/18 [History Confirmed 02/10/18] Acetaminophen [Tylenol Extra Strength] 500 tab BID PRN PRN MDD 1000 01/20/18 [History Confirmed 02/10/18] Atorvastatin Calcium [Lipitor] 20 mg PO QHS 01/20/18 [History Confirmed 02/10/18] Baclofen [Lioresal] 10 mg PO TID 01/20/18 [History Confirmed 02/10/18] Lorazepam [Ativan] 1 mg PO BID 01/20/18 [History Confirmed 02/10/18] Ondansetron HCl [Zofran] 4 mg PO PRN PRN 01/20/18 [History Confirmed 02/10/18] Pregabalin [Lyrica] 50 mg PO BID 01/20/18 [History Confirmed 02/10/18] Visit Reasons: Back pain [facility] Medical History Nonrheumatic mitral (valve) insufficiency (Chronic) Secondary pulmonary arterial hypertension (Chronic) Non-rheumatic tricuspid valve insufficiency (Chronic) End stage renal disease (Chronic) Problem with dialysis access (Acute) Chronic anemia (Chronic) Hypertension (Chronic) Narcolepsy (Chronic) Lupus nephritis (Chronic) Degenerative disc disease, cervical (Chronic) Cervical spondylosis (Chronic) Colitis (Acute) Leukopenia (Acute) Diabetes mellitus, type II (Chronic) SLE (systemic lupus erythematosus) (Chronic) Status post left heart catheterization (Acute) Acute renal failure (Resolved) Chronic kidney disease (Resolved) Dehydration with hyponatremia (Resolved) Hyperkalemia (Resolved) Unresponsiveness (Resolved) Surgical History History of esophagogastroduodenoscopy (EGD) (Acute) Presence of surgically created arteriovenous shunt for hemodialysis (Acute 11/2017) S/P colonoscopy (Acute) S/P lymph node biopsy (Acute) S/P nasal polypectomy (Acute) Status post carpal tunnel release (Acute) Status post insertion of dialysis catheter (Acute) Status post total hip replacement, bilateral (Acute) Family History Mother Diabetes Hypertension Kidney disease Father Heart disease Hypertension Kidney disease Social History Smoking Status: Never smoker second hand exposure: No alcohol intake: never substance use type: does not use caffeine: No what type of physical activity do you participate in: other HPI back pain: Chief Complaint: mid back and neck pain Visit Number: 3 Details: PAVITHRA PAINTER is a 47 year old F who presents with slightly decreased neck and mid back pain. Today the patient rates her pain a 3/10 and describes it as a a sore and tight ache that bands across the neck and shoulders. Rotation of the neck, looking down and raising the arms cause an increased pain. At times she does have a headache although, denies any migraines. Pavithra denies any numbness, tingling or radiculopathy. Location: neck and mid back Duration: constant Aggravating or associated factors: twisting, lifting, and raising arms above head Relieving factors: chiro Pain Quality: aching, dull, cramping Back pain: Details: PAVITHRA PAINTER is a 47 year old F here today for Exam Musc General: Yes normal gait and joint tenderness (C4, C5, C6, T2, T3, T8, L3-L5); no normal posture (anterior head carriage) Cervical Spine: loss of normal cervical lordosis, pain with cervical ROM with lateral flexion to left, with rotation to left, with lateral flexion to right and with rotation to right, cervical spasm (with areas of edema) bilateral lower: paracervical muscles and trapezius, cervical ROM abnormal lateral flexion to the right decreased, lateral flexion to the left decreased, rotation to left decreased, rotation to right decreased and extension decreased Thoracic/Lumbar Spine: thoracic and lumbar spine normal to inspection, pain with thoraco-lumbar ROM with forward flexion, with rotation to the left and with rotation to the right, paraspinal tenderness bilaterally in the lower lumbar and in the mid thoracic, thoraco-lumbar ROM limited with forward flexion, thoraco-lumbar spasm bilaterally in the lower lumbar and in the mid thoracic and on the right greater than left (upper thoracic) Office Procedures Chiropractic Treatments Procedures Manipulation: 3-4 regions (C4, C6, T3, T8, L3, L5) Assessment AND Plan Problems 1. Segmental and somatic dysfunction of lumbar region M99.03 2. Segmental and somatic dysfunction of thoracic region M99.02 3. Segmental and somatic dysfunction of cervical region M99.01 4. Back pain M54.9 Plan Continue with acute care treatment plan. Orders Orders: Plan Detail Goals Decrease pain Decrease spasm Decrease inflammation Improve ROM Barriers DDD Lupus Follow Up 2 x week Coding Level of Care Code No Charge Diagnoses Segmental and somatic dysfunction of lumbar region M99.03 Segmental and somatic dysfunction of thoracic region M99.02 Segmental and somatic dysfunction of cervical region M99.01 Back pain M54.9 Additional Codes Procedures - Manipulation: 3-4 regions (75942) 02/24/18 7324 <Electronically signed by Nancy Tuttle D.C.> Date Nancy Tuttle D.C. Cosigner Signature: Date (if applicable) CC: CHIROPRACTIC REPORT Observed: 02/24/2018 Status: F Source: [place] 12:30 PM [facility] [address] [place] [address] OFFICE VISIT Date of Service: 02/10/18 MR#: [id number] Acct: [id number] Name: PAVITHRA PAINTER Rep #: [id number] : 1970 Provider: Nancy Tuttle D.C. Age/Sex: 47/F Location: [facility] [place] Status: Signed Intake Intake Visit Reasons: back pain Is patient in pain?: Yes Allergies NEGRO Inhibitors Allergy (Verified 02/10/18 10:15) Angioedema lisinopril Allergy (Verified 02/10/18 10:15) Angioedema Sulfa (Sulfonamide Antibiotics) Allergy (Verified 02/10/18 10:15) Rash sulfamethoxazole [From Bactrim] Allergy (Verified 02/10/18 10:15) Rash trimethoprim [From Bactrim] Allergy (Verified 02/10/18 10:15) Rash Medications Duloxetine Hcl [Cymbalta] 120 mg PO DAILY 10/01/16 [History Confirmed 02/10/18] Hydroxychloroquine [Plaquenil] 200 mg PO BIDCM 10/01/16 [History Confirmed 02/10/18] Linagliptin [Tradjenta] 5 mg PO DAILY 10/01/16 [History Confirmed 02/10/18] Montelukast [Singulair] 10 mg PO QHS 10/01/16 [History Confirmed 02/10/18] Acyclovir [Zovirax] 400 mg PO TID PRN 10/26/16 [History Confirmed 02/10/18] Ergocalciferol [Vitamin D] 1.25 cap PO QMONTH 01/21/17 [History Confirmed 02/10/18] Amlactin Ultra Body Cream 1 applic TOPICAL DAILY PRN 02/17/17 [History Confirmed 02/10/18] Cevimeline HCl [Evoxac] 30 mg PO TID 02/17/17 [History Confirmed 02/10/18] Dextroamphetamine/Amphetamine [Adderall Xr 10 mg Capsule] 15 mg PO BID 07/22/17 [History Confirmed 02/10/18] Estradiol [Estrace] 1 mg PO QHS 09/27/17 [History Confirmed 02/10/18] omeprazole 40 mg capsule,delayed release 40 mg PO QDAY 12/08/17 [History Confirmed 02/10/18] paroxetine 10 mg tablet 10 mg PO QDAY 12/08/17 [History Confirmed 02/10/18] Sevelamer Carbonate 2,400 mg PO TID 12/09/17 [History Confirmed 02/10/18] furosemide 40 mg tablet 40 mg PO BID tab 01/11/18 [History Confirmed 02/10/18] metoprolol tartrate 25 mg tablet 25 mg PO BID 01/11/18 [History Confirmed 02/10/18] prednisone 10 mg tablet 5 mg PO DAILYCM tab 01/11/18 [History Confirmed 02/10/18] Acetaminophen [Tylenol Extra Strength] 500 tab BID PRN PRN MDD 1000 01/20/18 [History Confirmed 02/10/18] Atorvastatin Calcium [Lipitor] 20 mg PO QHS 01/20/18 [History Confirmed 02/10/18] Baclofen [Lioresal] 10 mg PO TID 01/20/18 [History Confirmed 02/10/18] Lorazepam [Ativan] 1 mg PO BID 01/20/18 [History Confirmed 02/10/18] Ondansetron HCl [Zofran] 4 mg PO PRN PRN 01/20/18 [History Confirmed 02/10/18] Pregabalin [Lyrica] 50 mg PO BID 01/20/18 [History Confirmed 02/10/18] PFS Medical History Nonrheumatic mitral (valve) insufficiency (Chronic) Secondary pulmonary arterial hypertension (Chronic) Non-rheumatic tricuspid valve insufficiency (Chronic) End stage renal disease (Chronic) Problem with dialysis access (Acute) Chronic anemia (Chronic) Hypertension (Chronic) Narcolepsy (Chronic) Lupus nephritis (Chronic) Degenerative disc disease, cervical (Chronic) Cervical spondylosis (Chronic) Colitis (Acute) Leukopenia (Acute) Diabetes mellitus, type II (Chronic) SLE (systemic lupus erythematosus) (Chronic) Status post left heart catheterization (Acute) Acute renal failure (Resolved) Chronic kidney disease (Resolved) Dehydration with hyponatremia (Resolved) Hyperkalemia (Resolved) Unresponsiveness (Resolved) Surgical History History of esophagogastroduodenoscopy (EGD) (Acute) Presence of surgically created arteriovenous shunt for hemodialysis (Acute 11/2017) S/P colonoscopy (Acute) S/P lymph node biopsy (Acute) S/P nasal polypectomy (Acute) Status post carpal tunnel release (Acute) Status post insertion of dialysis catheter (Acute) Status post total hip replacement, bilateral (Acute) Family History Mother Diabetes Hypertension Kidney disease Father Heart disease Hypertension Kidney disease Social History Smoking Status: Never smoker second hand exposure: No alcohol intake: never substance use type: does not use caffeine: No what type of physical activity do you participate in: other HPI back pain : Chief Complaint: back pain Visit Number: 1 Referral source: Dr Womack Details: PAVITHRA PAINTER is a 47 year old F who presents with back and neck pain. She states that the pain has been ongoing for many years although due to her health issues the pain has increased. The pain in the low back is mostly L sided and is described as a tight and stiff ache that can be sharp. Bending, lifting, and prolonged walking does increase the pain with slight numbness and tingling into the legs from time to time. The patient also complains of tightness and stiffness in the neck and shoulder area, the pain can radiate into the arms from time to time with slight numbness into the hands. Lifting, raising the arms, driving and writing all cause increased pain. At times when her pain is at its worst the pain can radiate into the mid back. Onset: 09/13/12 Location: neck and low back Duration: constant Aggravating or associated factors: bending, lifting, prolonged standing, and driving Relieving factors: medication Pain Quality: aching, dull, sharp Exam Musc General: Yes normal gait and joint tenderness (C4, C5, C6, T2, T3, T8, L3-L5); no normal posture (anterior head carriage) Cervical Spine: loss of normal cervical lordosis, pain with cervical ROM with lateral flexion to left, with rotation to left, with lateral flexion to right and with rotation to right, cervical spasm (with areas of edema) bilateral lower: paracervical muscles and trapezius, cervical ROM abnormal lateral flexion to the right decreased, lateral flexion to the left decreased, rotation to left decreased, rotation to right decreased and extension decreased Thoracic/Lumbar Spine: thoracic and lumbar spine normal to inspection, pain with thoraco-lumbar ROM with forward flexion, with rotation to the left and with rotation to the right, paraspinal tenderness bilaterally in the lower lumbar and in the mid thoracic, thoraco-lumbar ROM limited with forward flexion, thoraco-lumbar spasm bilaterally in the lower lumbar and in the mid thoracic and on the right greater than left (upper thoracic) Neuro General: alert, awake, oriented x3, normal light touch, pain and propioception, no focal motor deficits Ortho Test CERVICAL Compression pain: Right (bilateral pain on recoil) Jose's pain: Right (pos, bilaterally) Valsalvas: Negative Shoulder depression pain: Right (bilaterally, positive) THORACIC Kemps: Negative Martines: Negative LUMBAR Kemps: Positive, Right, Le Valsalvas: Negative SLR: Negative Iliac Compression: Positive, Right, Le Assessment AND Plan Problems 1. Segmental and somatic dysfunction of cervical region M99.01 2. Segmental and somatic dysfunction of thoracic region M99.02 3. Segmental and somatic dysfunction of lumbar region M99.03 Plan Recommend acute care treatment plan: 2x/wk/2-3 weeks. Ordered updated imaging. Orders Orders: Plan Detail Goals Decrease pain Decrease spasm Decrease inflammation Improve ROM Barriers DDD Lupus Follow Up 2x/wk/2-3 weeks Coding Level of Care Code Off vis,new,level 3 Diagnoses Segmental and somatic dysfunction of cervical region M99.01 Segmental and somatic dysfunction of thoracic region M99.02 Segmental and somatic dysfunction of lumbar region M99.03 02/24/18 1230 <Electronically signed by Nancy Tuttle D.C.> Date Nancy Tuttle D.C. Cosigner Signature: Date (if applicable) CC: HLA CLASS I AB Collected: 02/21/2018 Status: F Source: UNIVERSITY SCREEN,FC 4:47 PM [facility] REPOSITORY TYPE CODE TESTS RESULT OUT OF REFERENCE UNITS RANGE LAB HLA1S(LOINC ) HLA CLASS SEE COMMENT I AB SCREEN,FC Result Comment: HLA CLASS I AB SCREEN,FLOW CYTOMETRY SEE SEPARATE REPORT. Performed By: #### HLA1S #### [facility] [address] [place] [address] SURGERY VISIT REPORT Observed: 02/10/2018 Status: F Source: [place] 1:42 PM [facility] [place] [facility] [address] [place] [address] OFFICE VISIT Date of Service: 02/10/18 MR#: [id number] Acct: [id number] Name: PAVITHRA PAINTER Rep #: [id number] : 1970 Provider: Anabela Lewis PA-C Age/Sex: 47/F Location: [facility] Status: Signed Intake Vital Signs02/10/18 Height 5 ft 4 in 02/10/18 Weight: 148 lb 12.992 oz 02/10/18 Body Mass Index (BMI) 25.5 02/10/18 Blood Pressure 124/88 02/10/18 Blood Pressure Location Rt brachial Intake Visit Reasons: F/U CATH PLACEMENT 02/01/18 DP AND FISTULA RC Chief Complaint: recheck fistula swelling/ H AND P for cath insertion Film Or Tape Librarian Required: No Is patient in pain?: No Allergies NEGRO Inhibitors Allergy (Verified 02/10/18 10:15) Angioedema lisinopril Allergy (Verified 02/10/18 10:15) Angioedema Sulfa (Sulfonamide Antibiotics) Allergy (Verified 02/10/18 10:15) Rash sulfamethoxazole [From Bactrim] Allergy (Verified 02/10/18 10:15) Rash trimethoprim [From Bactrim] Allergy (Verified 02/10/18 10:15) Rash Medications Duloxetine Hcl [Cymbalta] 120 mg PO DAILY 10/01/16 [History Confirmed 02/10/18] Hydroxychloroquine [Plaquenil] 200 mg PO BIDCM 10/01/16 [History Confirmed 02/10/18] Linagliptin [Tradjenta] 5 mg PO DAILY 10/01/16 [History Confirmed 02/10/18] Montelukast [Singulair] 10 mg PO QHS 10/01/16 [History Confirmed 02/10/18] Acyclovir [Zovirax] 400 mg PO TID PRN 10/26/16 [History Confirmed 02/10/18] Ergocalciferol [Vitamin D] 1.25 cap PO QMONTH 01/21/17 [History Confirmed 02/10/18] Amlactin Ultra Body Cream 1 applic TOPICAL DAILY PRN 02/17/17 [History Confirmed 02/10/18] Cevimeline HCl [Evoxac] 30 mg PO TID 02/17/17 [History Confirmed 02/10/18] Dextroamphetamine/Amphetamine [Adderall Xr 10 mg Capsule] 15 mg PO BID 07/22/17 [History Confirmed 02/10/18] Estradiol [Estrace] 1 mg PO QHS 09/27/17 [History Confirmed 02/10/18] omeprazole 40 mg capsule,delayed release 40 mg PO QDAY 12/08/17 [History Confirmed 02/10/18] paroxetine 10 mg tablet 10 mg PO QDAY 12/08/17 [History Confirmed 02/10/18] Sevelamer Carbonate 2,400 mg PO TID 12/09/17 [History Confirmed 02/10/18] furosemide 40 mg tablet 40 mg PO BID tab 01/11/18 [History Confirmed 02/10/18] metoprolol tartrate 25 mg tablet 25 mg PO BID 01/11/18 [History Confirmed 02/10/18] prednisone 10 mg tablet 5 mg PO DAILYCM tab 01/11/18 [History Confirmed 02/10/18] Acetaminophen [Tylenol Extra Strength] 500 tab BID PRN PRN MDD 1000 01/20/18 [History Confirmed 02/10/18] Atorvastatin Calcium [Lipitor] 20 mg PO QHS 01/20/18 [History Confirmed 02/10/18] Baclofen [Lioresal] 10 mg PO TID 01/20/18 [History Confirmed 02/10/18] Lorazepam [Ativan] 1 mg PO BID 01/20/18 [History Confirmed 02/10/18] Ondansetron HCl [Zofran] 4 mg PO PRN PRN 01/20/18 [History Confirmed 02/10/18] Pregabalin [Lyrica] 50 mg PO BID 01/20/18 [History Confirmed 02/10/18] [facility] Medical History Nonrheumatic mitral (valve) insufficiency (Chronic) Secondary pulmonary arterial hypertension (Chronic) Non-rheumatic tricuspid valve insufficiency (Chronic) End stage renal disease (Chronic) Problem with dialysis access (Acute) Chronic anemia (Chronic) Hypertension (Chronic) Narcolepsy (Chronic) Lupus nephritis (Chronic) Degenerative disc disease, cervical (Chronic) Cervical spondylosis (Chronic) Colitis (Acute) Leukopenia (Acute) Diabetes mellitus, type II (Chronic) SLE (systemic lupus erythematosus) (Chronic) Status post left heart catheterization (Acute) Acute renal failure (Resolved) Chronic kidney disease (Resolved) Dehydration with hyponatremia (Resolved) Hyperkalemia (Resolved) Unresponsiveness (Resolved) Surgical History History of esophagogastroduodenoscopy (EGD) (Acute) Presence of surgically created arteriovenous shunt for hemodialysis (Acute 11/2017) S/P colonoscopy (Acute) S/P lymph node biopsy (Acute) S/P nasal polypectomy (Acute) Status post carpal tunnel release (Acute) Status post insertion of dialysis catheter (Acute) Status post total hip replacement, bilateral (Acute) Family History Mother Diabetes Hypertension Kidney disease Father Heart disease Hypertension Kidney disease Social History Smoking Status: Never smoker HPI HPI HPI: PAVITHRA PAINTER, is a 47 F I am following for chronic renal failure. Dr. Valverde performed a right tunneled chest catheters and transposition left upper arm basilic vein to brachial artery arteriovenous fistula creation on 12/10/2017. Patient noted her catheters were caught on a pillow while napping. She rolled over and the catheters were pulled out. Dr. Sheth replaced the tunneled right chest catheters on 02/01. She has been dialyzing well. She notes minimal amount of oozing from the catheter site. She dialyzes on M, W, F at [facility] dialysis igo. 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 She denies recent health changes, illnesses, and hospitalizations. Patient had an AV fistula graft scan on 01/25/18 due to continued swelling of the left upper extremity since her fistula was created. Imaging demonstrated no significant evidence of stenosis. ROS General General: Yes fatigue; no weight change, appetite, colon cancer, breast cancer or weakness HEENT HEENT: No difficulty swallowing, eye injury, eye surgery, swollen glands or hoarseness Endo Endocrine: Yes diabetes mellitus; no thyroid disease, thyroid cancer, Hair loss, heat intolerance or cold intolerance Musc Musculoskeletal: No back problems, arthritis, rheumatoid arthritis, gout or joint pain Cardio Cardiovascular: Yes high blood pressure; no murmur, pacemaker, heart disease, atrial fibrillation, heart attack, heart stent, palpitations, shortness of breat with exertion or chest pain Resp Respiratory: No shortness of breath, No sleep apnea, No cough, No COPD, No asthma, No emphysema, No wheezing Gastro Gastrointestinal: No abdominal pain, No nausea or vomiting, No diarrhea, No constipation, No blood in stool, No acid reflux, No hemorrhoids, No ulcers, No gallbladder problem, No black,tarry stools Johny Hematologic: No blood thinners, No blood disorders, No bleeding, Yes anemia, No blood clots Neuro Neurologic: No weakness Exam Const General: cooperative, comfortable, no acute distress, healthy appearing [facility] Head: normal to inspection Eyes General: appearance normal, both eyes and all related structures Neck Neck mass: No Resp Effort AND Inspection: normal respiratory effort Auscultation: clear to auscultation bilaterally Cardio Rate: regular rate Rhythm: regular rhythm Heart Sounds: no murmurs GI Inspection: normal to inspection Palpation: soft Auscultation: normal bowel sounds Skin Trauma: abrasion (bilateral knees from a fall) Neuro General: no focal motor deficits, CN's II-XI intact bilaterally Extrem General: normal to inspection Other: Left upper extremity AV fistula- incision nicely healed. Good pulse, bruit and thrill. Fistula appears ropey at the superior aspect of the upper extremity. Port placement on the left chest Psych Appearance: grossly normal Affect: normal affect Assessment AND Plan Problems 1. Problem with dialysis access, subsequent encounter T82.214C Plan Dr. Valverde has also evaluated this patient. Dr. Valverde will plan to perform a left upper extremity fistulogram with possible angioplasty. Patient has had the opportunity to ask and have questions answered. Patient verbally understands and agrees with the plan. Coding Level of Care Code Global Post Op Diagnoses Problem with dialysis access, subsequent encounter T82.206U Encounter type: subsequent encounter 02/10/18 1342 <Electronically signed by Anabela Lewis PA-C> Date Anabela Lewis PA-C Cosigner Signature: Date (if applicable) CC: Mitchell Womack MD HLA CLASS II AB Collected: 02/03/2018 Status: F Source: UNIVERSITY SCREEN,FC 4:50 PM [facility]ALS REPOSITORY TYPE CODE TESTS RESULT OUT OF REFERENCE UNITS RANGE LAB HLA2S(LOINC ) HLA CLASS SEE COMMENT II AB SCREEN,FC Result Comment: HLA CLASS II AB SCREEN,FLOW CYTOMETRY SEE SEPARATE REPORT. Performed By: #### HLA2S #### [facility] [address] [place] [address] HLA CLASS I SP AB Collected: 02/03/2018 Status: F Source: UNIVERSITY ID,HD 4:50 PM HOSPITALS REPOSITORY TYPE CODE TESTS RESULT OUT OF REFERENCE UNITS RANGE LAB HL1HD(LOINC ) HLA CLASS SEE COMMENT I SP AB ID,HD Result Comment: HLA-CLASS I SP ANTIBODY IDENTIFICATION, HIGH DEFINITION SEE SEPARATE REPORT. Performed By: #### HL1HD #### [facility] [address] [place] [address] UPPER EXT ARTERIAL Observed: 02/03/2018 Status: F Source: [place] STUDY 12:10 PM [facility] [place] Cardiovascular Services [address] [place] [address] 02/03/18 1207 MR#: [id number] Acct: [id number] Name: PAVITHRA PAINTER Rep #: [id number] : 1970 47 From: Rigo Valverde MD Attending Dr: Anabela Lewis PA-C Status: REG CLI Ordering Dr: Date: 02/03/18 Location: [facility] Sex: F A Admitted: Arterial Study - Arterial Study Arterial Study: Left upper extremity duplex fistula examination Findings demonstrate a left upper extremity arteriovenous fistula with patent arterial anastomosis and inflow. As noted on additional documentation volume flow is adequate normal throughout. There are no focal areas of clinically significant stenosis Inflow artery has 58 cm/s flow. The proximal anastomosis 202 cm/s. The proximal graft 764 cm/s. The mid graft 226 cm second. The distal graft 214 cm/s. The outflow graft 218 cm/s. The radial artery at the wrist has 80 cm/s flow in the ulnar artery at the wrist 49 cm/s. Impression Patent left upper extremity arteriovenous hemodialysis fistula Rigo Valverde M.D., F.A.C.S. 02/03/18 1210 <Electronically signed by Rigo Valverde MD> Date Rigo Valverde MD CC: Anabela Lewis PA-C; Mitchell Womack MD Date Dictated: 02/03/18 1207 Date Transcribed: 02/03/181206 Electric Tripper Machine Operator: MERARY Signed AV FISTULA/DIALYSIS GRAFT Observed: 02/03/2018 Status: F Source: [place] SCAN 12:05 PM [facility] [place] [facility] Cardiovascular Services [address] [place] [address] AV Fistula/Dialysis Graft Scan 01/25/18 1506 MR#: [id number] Acct: [id number] Name: PAVITHRA PAINTER Rep #: [id number] : 1970 47 From: Rigo Valverde MD Attending Dr: Anabela Lewis PA-C Status: REG CLI Ordering Dr: Anabela Lewis PA-C Date: 01/25/18 Location: [facility] Sex: F A Admitted: LEFT Inflow artery 58.0 cm/s Prox Anast 202 cm/s Prox Graft 764 cm/s Mid Graft 226 cm/s Dist Graft 214 cm/s Outflow 218 cm/s Radial Artery at wrist 80.9 cm/s Ulnar Artery at wrist 49.5 cm/s. Interpretation Summary Volume flow at the anastomosis 1101 cc/min. Volume flow of the proximal graft 1111 cc/min Volume flow in the mid graft 566 cc/min Volume flow in the distal graft 723 cc/min Patent left upper extremity arteriovenous fistula with no focal evidence of clinically significant stenosis Ordering Physician: Anabela Lewis PA-C Performed By: Quan Cazares RVLalita 02/03/18 1205 Date Rigo Valverde MD CC: Anabela Lewis PA-C; Mitchell Womack MD Date Dictated: 01/25/18 1506 Date Transcribed: 02/03/18 1205 Electric Tripper Machine Operator: Signed OPERATIVE REPORT Observed: 02/02/2018 Status: F Source: [place] 2:17 PM [facility] [place] [facility] Medical Records Department [address] [place] [address] Operative Report 02/01/18 1219 MR#: [id number] Acct: [id number] Name: PAVITHRA PAINTER Rep #: [id number] : 1970 47 From: Cesar Sheth MD PCP: Vu GARCIA,Mitchell Yadav Status: DEP [facility] Y Location: [facility] Problem List (1) End stage renal disease Status: Chronic Report of Operation Date of Procedure: 02/01/18 Pre-Operative Diagnosis: N18.6 end-stage renal disease Post-Operative Diagnosis: Same Surgery/Procedure Performed:: Right external jugular tunneled 19 cm pre-curved palindrome dialysis catheter placement Type of Anesthesia:: MAC Anesthesiologist: Cami Simon Description of Procedure: 47-year-old female was taken to the operating. She underwent monitored anesthesia care local anesthetic. Ancef 2 g given intravenous preoperatively. The right neck and chest were sterilely prepped and draped. Ultrasound was used to identify the right internal jugular vein which was extraordinarily diminutive in size. The preoperative duplex imaging suggested patency however in actuality this vein was very diminutive. I did attempt access with using 0.5% lidocaine and then a micropuncture needle. I could not get the micropuncture wire to advance. Further inspection of the neck revealed that the external jugular vein appear to be patent. I then utilized 0.5% a cane as a local. I used ultrasound to guide a micropuncture needle into the vein. Micropuncture wire. Micropuncture sheath. I then instilled local down upon the chest wall. I tunneled the 19 cm pre-curved palindrome catheter from the chest to the neck. I placed a J-wire through the micropuncture sheath. Serial dilatation was performed. Sheath dilator was inserted. The dilator and wire removed. The catheter was advanced through the sheath. The sheath was split. The catheter was in good position based upon fluoroscopy. The neck site was closed with interrupted 4-0 Vicryl subdermal stitch. The catheter was secured skin with interrupted 3-0 nylon. A silver impregnated dressing was applied followed by Telfa. Telfa OpSite was placed in the neck. - Admit VTE Documentation VTE Present on Admission: No VTE Mechan Device Prophylaxis: SCD's VTE Pharm Prophylaxis ordered?: No Reason prophylaxis not ordered:: Treatment Not Indicated 02/02/18 1417 <Electronically signed by Cesar Sheth MD> Date Cesar Sheth MD CC: Cesar Sheth MD; Mitchell Womack MD Signed BEDSIDE GLUCOSE Collected: 02/01/2018 Status: F Source: [place] 12:43 PM [facility] [place] [facility] TYPE CODE TESTS RESULT OUT OF RANGE REFERENCE UNITS LAB L501.080 70-110 mg/dL Normal BEDSIDE GLU 77 Result Comment: MANAGEMENT OF PATIENT CARE PER NURSING PROTOCOL Performed By: #### L501.080 #### Laboratory Point of Care [address] [place] [address] DISCHARGE INSTRUCTION Observed: 02/01/2018 Status: F Source: [place] 12:32 PM [facility] [place] [facility] Medical Records Department [address] [place] [address] Instructions for Home/Discharge Instructions 02/01/18 1231 MR#: [id number] Acct: [id number] Name: PAVITHRA PAINTER Rep #: [id number] : 1970 47 From: eCsar Sheth MD PCP: Vu GARCIA,Mitchell Chi Status: REG [facility] Discharge Diet: No Restrictions - Pain medication may cause nausea. You should typically eat light foods as you take your pain medication. Discharge Activity: May Shower - with the bandage in place 1-2 days after surgery. DO NOT SHOWER WHEN YOUR PORT IS ACCESSED. Additional Activity Instructions:: May not drive, work with heavy equipment, or sign legal documents for [address] if you are no longer taking narcotic pain medications. You may drive when you are no longer taking pain medications. Additional Dressing/Incision Instructions:: Leave the bandage on for 2-3 days. When you remove the bandage, leave the steri-strips intact until they fall off. Allergies/Adverse Reactions: Allergies NEGRO Inhibitors Allergy (Verified 01/31/18 14:13) Angioedema lisinopril Allergy (Verified 01/31/18 14:13) Angioedema Sulfa (Sulfonamide Antibiotics) Allergy (Verified 01/31/18 14:13) Rash sulfamethoxazole [From Bactrim] Allergy (Verified 01/31/18 14:13) Rash trimethoprim [From Bactrim] Allergy (Verified 01/31/18 14:13) Rash Medications to take at Discharge Duloxetine Hcl [Cymbalta] 120 mg PO DAILY 10/01/16 Hydroxychloroquine [Plaquenil] 200 mg PO BIDCM 10/01/16 Linagliptin [Tradjenta] 5 mg PO DAILY 10/01/16 Montelukast [Singulair] 10 mg PO QHS 10/01/16 Acyclovir [Zovirax] 400 mg PO TID PRN 10/26/16 Ergocalciferol [Vitamin D] 1.25 cap PO QMONTH 01/21/17 Amlactin Ultra Body Cream 1 applic TOPICAL DAILY PRN 02/17/17 Cevimeline HCl [Evoxac] 30 mg PO TID 02/17/17 Dextroamphetamine/Amphetamine [Adderall Xr 10 mg Capsule] 15 mg PO BID 07/22/17 Estradiol [Estrace] 1 mg PO QHS 09/27/17 omeprazole 40 mg capsule,delayed release 40 mg PO QDAY 12/08/17 paroxetine 10 mg tablet 10 mg PO QDAY 12/08/17 Sevelamer Carbonate 2,400 mg PO TID 12/09/17 furosemide 40 mg tablet 40 mg PO BID tab 01/11/18 metoprolol tartrate 25 mg tablet 25 mg PO BID 01/11/18 prednisone 10 mg tablet 5 mg PO DAILYCM tab 01/11/18 Acetaminophen [Tylenol Extra Strength] 500 tablet BID PRN PRN MDD 1000 01/20/18 Atorvastatin Calcium [Lipitor] 20 mg PO QHS 01/20/18 Baclofen [Lioresal] 10 mg PO TID 01/20/18 Lorazepam [Ativan] 1 mg PO BID 01/20/18 Ondansetron HCl [Zofran] 4 mg PO PRN PRN 01/20/18 Pregabalin [Lyrica] 50 mg PO BID 01/20/18 Primary Care Physician: Mitchell Womack Chi, MD [Primary Care Provider] - Please Follow Up With: Cesar Sheth MD - [phone] When: Please plan to follow up in 7 days in the office. 02/01/18 1232 <Electronically signed by Cesar Sheth MD> Date Cesar Sheth MD CC: Mitchell Womack MD CXR FOR LINE PLACEMENT Observed: 02/01/2018 Status: F Source: [place] 12:31 [facility] REPOSITORY [facility] Imaging Services [address] [place] [address] CXR for Line Placement MR#: [id number] Acct: [id number] Name: PAVITHRA PAINTER Rep #: [id number] : 1970 F 47 From: Jonathan Garcia MD PCP: Mitchell Womack MD, Chi Status: [facility] Study: CXR for Line Placement Date of Exam: 02/01/18 Exam# [id number] Ordering Dr: Cesar Sheth MD STUDY: X-RAY CHEST REASON FOR EXAM: Female, 47 years old. Hemodialysis catheter insertion. TECHNIQUE: Single AP portable view of the chest. COMPARISON: Comparison is made with prior study dated December 10, 2017. FINDINGS: A right-sided double-lumen catheter is seen with the tip in the midportion of the superior vena cava. A left-sided portacatheter is seen with the tip at the junction of the superior vena cava and right atrium. EKG electrodes are seen. The lungs are clear and expanded. There is no demonstrated pleural abnormality. Normal size heart. Normal mediastinum and malorie. Normal visualized pulmonary arteries. Normal visualized aortic arch and descending thoracic aorta. Normal visualized thoracic spine. Normal visualized ribs, clavicles, and shoulders. There is no demonstrated abnormality of the visualized soft tissue structures of the upper abdomen. RAD/CXR for Line Placement IMPRESSION: The tip of the right double-lumen catheter is in the midportion of the superior vena cava. Electronically Signed: Jonathan Garcia MD at 14:31 EDT Tel [phone], Service support , CC: Cesar Sheth MD; Mitchell Womack MD Electric Tripper Machine Operator: Signed BEDSIDE GLUCOSE Collected: 02/01/2018 Status: F Source: [place] 10:11 AM [facility] [place] [facility] TYPE CODE TESTS RESULT OUT OF RANGE REFERENCE UNITS LAB L501.080 70-110 mg/dL Normal BEDSIDE GLU 94 Result Comment: MANAGEMENT OF PATIENT CARE PER NURSING PROTOCOL Performed By: #### L501.080 #### Laboratory Point of Care [address] [place] [address] SURGERY VISIT REPORT Observed: 01/31/2018 Status: F Source: [place] 4:12 PM [facility] [place] [facility] [address] [place] [address] OFFICE VISIT Date of Service: 01/31/18 MR#: [id number] Acct: [id number] Name: PAVITHRA PAINTER Rep #: [id number] : 1970 Provider: Anabela Lewis PA-C Age/Sex: 47/F Location: [facility] Status: Signed Intake Vital Signs01/31/18 Height 5 ft 4 in 01/31/18 Weight: 119 lb 7.849 oz 01/31/18 Body Mass Index (BMI) 20.5 01/31/18 Blood Pressure 143/91 Intake Visit Reasons: F/U FISTULA CHECK Chief Complaint: recheck fistula swelling/ H AND P for cath insertion Film Or Tape Librarian Required: No Is patient in pain?: No Allergies NEGRO Inhibitors Allergy (Verified 01/31/18 14:13) Angioedema lisinopril Allergy (Verified 01/31/18 14:13) Angioedema Sulfa (Sulfonamide Antibiotics) Allergy (Verified 01/31/18 14:13) Rash sulfamethoxazole [From Bactrim] Allergy (Verified 01/31/18 14:13) Rash trimethoprim [From Bactrim] Allergy (Verified 01/31/18 14:13) Rash Medications Duloxetine Hcl [Cymbalta] 120 mg PO DAILY 10/01/16 [History Confirmed 01/31/18] Hydroxychloroquine [Plaquenil] 200 mg PO BIDCM 10/01/16 [History Confirmed 01/31/18] Linagliptin [Tradjenta] 5 mg PO DAILY 10/01/16 [History Confirmed 01/31/18] Montelukast [Singulair] 10 mg PO QHS 10/01/16 [History Confirmed 01/31/18] Acyclovir [Zovirax] 400 mg PO TID PRN 10/26/16 [History Confirmed 01/31/18] Ergocalciferol [Vitamin D] 1.25 cap PO QMONTH 01/21/17 [History Confirmed 01/31/18] Amlactin Ultra Body Cream 1 applic TOPICAL DAILY PRN 02/17/17 [History Confirmed 01/31/18] Cevimeline HCl [Evoxac] 30 mg PO TID 02/17/17 [History Confirmed 01/31/18] Dextroamphetamine/Amphetamine [Adderall Xr 10 mg Capsule] 15 mg PO BID 07/22/17 [History Confirmed 01/31/18] Estradiol [Estrace] 1 mg PO QHS 09/27/17 [History Confirmed 01/31/18] omeprazole 40 mg capsule,delayed release 40 mg PO QDAY 12/08/17 [History Confirmed 01/31/18] paroxetine 10 mg tablet 10 mg PO QDAY 12/08/17 [History Confirmed 01/31/18] Sevelamer Carbonate 2,400 mg PO TID 12/09/17 [History Confirmed 01/31/18] furosemide 40 mg tablet 40 mg PO BID tab 01/11/18 [History Confirmed 01/31/18] metoprolol tartrate 25 mg tablet 25 mg PO BID 01/11/18 [History Confirmed 01/31/18] prednisone 10 mg tablet 5 mg PO DAILYCM tab 01/11/18 [History Confirmed 01/31/18] vitamin B complex and vitamin C no.20-folic acid 1 mg capsule 1 cap PO QDAY 01/11/18 [History Confirmed 01/31/18] Acetaminophen [Tylenol Extra Strength] 01/20/18 [History Confirmed 01/31/18] Atorvastatin Calcium [Lipitor] 20 mg PO QHS 01/20/18 [History Confirmed 01/31/18] Baclofen [Lioresal] 10 mg PO TID 01/20/18 [History Confirmed 01/31/18] Lorazepam [Ativan] 1 mg PO BID 01/20/18 [History Confirmed 01/31/18] Ondansetron HCl [Zofran] 4 mg PO 01/20/18 [History Confirmed 01/31/18] Pregabalin [Lyrica] 50 mg PO BID 01/20/18 [History Confirmed 01/31/18] Is last menstrual period known: No Post menopausal: Yes Patient : No PFSH Medical History Nonrheumatic mitral (valve) insufficiency (Chronic) Secondary pulmonary arterial hypertension (Chronic) Non-rheumatic tricuspid valve insufficiency (Chronic) End stage renal disease (Chronic) Problem with dialysis access (Acute) Chronic anemia (Chronic) Hypertension (Chronic) Narcolepsy (Chronic) Lupus nephritis (Chronic) Degenerative disc disease, cervical (Chronic) Cervical spondylosis (Chronic) Colitis (Acute) Leukopenia (Acute) Diabetes mellitus, type II (Chronic) SLE (systemic lupus erythematosus) (Chronic) Status post left heart catheterization (Acute) Acute renal failure (Resolved) Chronic kidney disease (Resolved) Dehydration with hyponatremia (Resolved) Hyperkalemia (Resolved) Unresponsiveness (Resolved) Surgical History History of esophagogastroduodenoscopy (EGD) (Acute) Presence of surgically created arteriovenous shunt for hemodialysis (Acute 11/2017) S/P colonoscopy (Acute) S/P lymph node biopsy (Acute) S/P nasal polypectomy (Acute) Status post carpal tunnel release (Acute) Status post insertion of dialysis catheter (Acute) Status post total hip replacement, bilateral (Acute) Family History Mother Diabetes Hypertension Kidney disease Father Heart disease Hypertension Kidney disease Social History Smoking Status: Never smoker second hand exposure: No alcohol intake: never substance use type: does not use caffeine: No what type of physical activity do you participate in: other HPI HPI HPI: PAVITHRA PAINTER, is a 47 F I am following for chronic renal failure. Patient noted over the weekend, her dialysis catheter was pulled out. Dr. Valverde performed a right tunneled chest catheters and transposition left upper arm basilic vein to brachial artery arteriovenous fistula creation on 12/10/2017. Patient noted her catheters were caught on a pillow while napping. She rolled over and the catheters were pulled out. She dialyzes on , , at [facility] dialysis igo. 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 She denies recent health changes, illnesses, and hospitalizations. ROS General General: Yes fatigue; no weight change, appetite, colon cancer, breast cancer or weakness HEENT HEENT: No difficulty swallowing, eye injury, eye surgery, swollen glands or hoarseness Endo Endocrine: Yes diabetes mellitus; no thyroid disease, thyroid cancer, Hair loss, heat intolerance or cold intolerance Musc Musculoskeletal: No back problems, arthritis, rheumatoid arthritis, gout or joint pain Cardio Cardiovascular: Yes high blood pressure; no murmur, pacemaker, heart disease, atrial fibrillation, heart attack, heart stent, palpitations, shortness of breat with exertion or chest pain Resp Respiratory: No shortness of breath, No sleep apnea, No cough, No COPD, No asthma, No emphysema, No wheezing Gastro Gastrointestinal: No abdominal pain, No nausea or vomiting, No diarrhea, No constipation, No blood in stool, No acid reflux, No hemorrhoids, No ulcers, No gallbladder problem, No black,tarry stools Johny Hematologic: No blood thinners, No blood disorders, No bleeding, Yes anemia, No blood clots Neuro Neurologic: No system reviewed and no additional complaints, except as docu, No as per HPI, No abnormal walking, No abnormal hearing, No abnormal movements, No abnormal speech, No behavioral changes, No burning sensations, No confusion, No seizure-like activity, No unsteadiness, No dizziness, No localized weakness, No frequent falls, No headache(s), No lack of coordination, No loss of vision, No memory loss, No numbness, No other visual disturbances, No radiating pain, No restless legs, No sensory deficit, No fainting, No tingling, No tremor(s), No weakness, No other Exam Const General: cooperative, healthy appearing, comfortable, no acute distress HENNC Head: normal to inspection Eyes General: appearance normal, both eyes and all related structures Neck Neck mass: No Resp Effort AND Inspection: normal respiratory effort Auscultation: clear to auscultation bilaterally Cardio Rate: regular rate Rhythm: regular rhythm Heart Sounds: no murmurs GI Inspection: normal to inspection, incision Palpation: soft Auscultation: normal bowel sounds Skin General: no rashes or lesions noted Neuro General: no focal motor deficits Extrem Other: Left upper extremity fistula- good pulse, bruit and thrill. Minimal amount of left upper extremity swelling. Psych Appearance: grossly normal Affect: normal affect Assessment AND Plan Problems 1. Problem with dialysis access, subsequent encounter T82.578D 2. End stage renal disease N18.[address] Sheth will plan to perform right tunneled dialysis chest catheters tomorrow. Patient has left chest port a cath. Procedure was explained in detail, risks and benefits. Patient will proceed to dialysis once completed with the procedure. Patient has had the opportunity to ask and have questions answered. Patient verbally understands and agrees with the plan. Coding Level of Care Code Off vis,est,level 4 Diagnoses Problem with dialysis access, subsequent encounter T82.898D Encounter type: subsequent encounter End stage renal disease N18.6 01/31/18 1612 <Electronically signed by Anabela Lewis PA-C> Date Anabela Lewis PA-C Cosigner Signature: Date (if applicable) CC: Mitchell Womack MD ECHOCARDIOGRAM COMPLETE Observed: 01/25/2018 Status: F Source: [place] 11:21 AM [facility] [place] [facility] Cardiovascular Services [address] [place] [address] Echo Complete 01/25/18 1008 MR#: [id number] Acct: [id number] Name: PAVITHRA PAINTER Rep #: [id number] : 1970 47 From: Cesar Roberts MD Attending Dr: Cesar Roberts MD Status: REG [facility] Ordering Dr: Cesar Roberts MD Date: 01/25/18 Location: [facility] Sex: F A Admitted: Reason For Study: CAD/ASHD Procedure This was a 2D Doppler, Color Flow transthoracic echocardiogram. Exam performed in department. Left Ventricle Moderate concentric left ventricular hypertrophy. The estimated ejection fraction is 65 %. Stage 1 diastolic dysfunction. No regional wall motion abnormalities noted. Right Ventricle Normal size and thickness. Normal systolic function. Atria Normal left atrium. Normal right atrium. Normal atrial septum. Mitral Valve The mitral valve is structurally normal. No prolapse or stenosis seen. Tricuspid Valve Normal tricuspid valve. Trivial tricuspid valve insufficiency. Right ventricular systolic pressure estimated to be 31 mmHg. Aortic Valve Trisinus/trileaflet aortic valve. Trivial aortic valve insufficiency. Pulmonic Valve Normal pulmonic valve. Great Vessels Normal aortic root. Normal arch. Normal inferior vena cava. Inferior vena cava collapse with sniff. Pericardium/Pleural No pericardial effusion. MMode/2D Measurements AND Calculations LVIDd: 4.4 cm IVSd: 1.9 cm Ao root diam: 3.1 cm LVIDs: 2.5 cm LVPWd: 1.1 cm LA dimension: 3.6 cm RVDd: 3.1 cm FS: 42.8 % LAV(MOD-bp): 37.5 ml LA A4 area: 16.1 cm2 RA A4 area: 11.7 cm2 LAV(MOD-bp) Indexed: 21.7 ml/m2 LAV(MOD-sp2): 34.7 ml LAV(MOD-sp4): 41.0 ml Time Measurements MV dec time: 0.17 sec Doppler Measurements AND Calculations MV E max mike: 75.1 cm/sec Lat Peak E' Mike: 11.7 cm/sec Med Peak E' Mike: 5.9 cm/sec MV A max mike: 86.1 cm/sec E/E' lat: 6.4 E/E' med: 12.7 MV E/A: 0.87 MV V2 max: 103.5 cm/sec MV P1/2t max mike: 95.1 cm/sec Ao V2 max: 131.6 cm/sec MV max P.3 mmHg MV P1/2t: 50.8 msec Ao max P.9 mmHg MV V2 mean: 60.3 cm/sec MV dec slope: 547.9 cm/sec2 Ao V2 mean: 88.2 cm/sec MV mean P.7 mmHg MVA(P1/2t): 4.3 cm2 Ao mean P.5 mmHg MV V2 VTI: 19.9 cm Ao V2 VTI: 23.3 cm AI max mike: 500.4 cm/sec LV V1 max: 105.3 cm/sec PA V2 max: 97.3 cm/sec AI max P.2 mmHg LV V1 max P.4 mmHg AI dec slope: 458.7 cm/sec2 LV V1 mean P.0 mmHg AI P1/2t: 319.5 msec LV V1 mean: 64.4 cm/sec LV V1 VTI: 18.8 cm TR max mike: 255.8 cm/sec TR max P.2 mmHg Interpretation Summary Moderate concentric left ventricular hypertrophy. The estimated ejection fraction is 65 %. Stage 1 diastolic dysfunction. Trivial tricuspid valve insufficiency. Right ventricular systolic pressure estimated to be 31 mmHg. Compared to echo report dated 01/10/2016, LV function has remained the same, and RVSP has improved from 50 to 31 mm Hg. Ordering Physician: Cesar Roberts Referring Physician: Cesar Roberts Performed By: Bernabe Campos RCS 01/25/18 1120 Date Cesar Roberts MD CC: Cesar Roberts MD; Mitchell Womack MD Date Dictated: 01/25/18 1008 Date Transcribed: 01/25/18 1120 Electric Tripper Machine Operator: Signed ONCOLOGY VISIT REPORT Observed: 01/20/2018 Status: F Source: [place] 1:49 PM [facility] [place] [facility] Oncology [address] [place] [address] [place] [address] OFFICE VISIT Date of Service: 01/20/18 1328 MR#: [id number] Acct: [id number] Name: PAVITHRA PAINTER Rep #: [id number] : 1970 From: Garcia Marte MD Age/Sex: 47/F Location: OMD Status: Signed Subjective - Date of Service Date of Service:: 01/20/18 - Chief Complaint Follow up- Anemia of chronic disease - History of Present Illness Ms. Pavithra Painter is a very pleasant 47y.o.woman with history of lupus nephritis was found to have anemia of chronic disease. She had received Procrit and iron infusion in the past. Began dialysis October 2016 under the care of Dr. Lisa Ambriz. Nephrology monitoring iron studies at this time. Comes in for follow up. - Past Medical/Social History Past Medical History Past Medical History: Anemia,Anxiety,Arthritis,Blood transfusion,C- diff,Depression,Diabetes mellitus,Edema,GERD, Headaches,Hypertension,Kidney disease,Lupus, Osteoporosis Other Past Medical History: Leukocytosis Shoulder Pain Chronic Kidney Disease B12 Deficiency Aseptic Necrosis of Bone Irritable Bowel Syndrome Fibromyalgia Vitamin D Deficiency Narcolepsy Hip Pain Knee Pain Wrist Pain Back Pain Carpal Tunnel Syndrome Past Surgical History Surgical: Carpal tunnel,Colonoscopy Family History Paternal Past Medical History: Arthritis,Diabetes mellitus,Heart disease, Hyperlipidemia,Hypertension,Kidney disease,Liver disease Maternal Past Medical History: Arthritis,Osteoporosis Social History Smoking Status Never smoker Review of Systems Constitutional:: Reports: Fatigue. Denies: Fever, Sweats Cardiovascular:: Denies: Chest pain, Palpitations, Dyspnea on exertion, Orthopnea, PND, Shortness of breath Respiratory: Denies: Cough, Hemoptysis, Shortness of Breath, Wheezing Gastrointestinal:: Denies: Abdominal pain, Nausea, Vomiting, Diarrhea, Constipation, Hematochezia Genitourinary: Denies: Dysuria, Hematuria, 15, Flank pain Musculoskeletal:: Reports: - - swelling L arm due malfunctioning of AV fistula. Vital Signs Height 5 ft 4 in Weight: 68.946 kg Weight in Pounds 152.0 lbs Pulse Ox 98 - Physical Exam General: Alert, Oriented x3, No apparent distress Cardiac:: Regular rate, Regular rhythm, Normal S1, Normal S2. Negative for: Murmur Lungs: Clear to auscultation, Excusion symmetrical. Negative for: Rhonchi, Wheezes Laboratory Data: Laboratory Tests WBC 7.7 (4.4-11.0) K/mm3 RBC 3.26 L (4.2-5.4) M/mm3 Hgb 10.2 L (12.0-15.0) g/dl Hct 32.6 L (37-47) % Assessment and Plan Anemia of chronic kidney disease, on HD now. Iron profile is monitored by Nephrology team. Plan is to continue iron replacement at Hemodialysis. RTC 1 yr with CBC. Medications: Prescriptions This Visit Medication Instructions Recorded Ergocalciferol [Vitamin D] 1.25 cap PO QMONTH 01/21/17 Primary Care Provider: Mitchell Womack Referring Provider: - Problem List (1) Chronic anemia Status: Chronic 01/20/18 1349 <Electronically signed by Garcia Marte MD> Date Garcia Marte MD Cosigner Signature: Date (if applicable) CC: IRON+IRON BINDING Collected: 01/20/2018 Status: F Source: [place] 1:05 PM [facility] [place] TYPE CODE TESTS RESULT OUT OF RANGE REFERENCE UNITS LAB L503.6075 250-450 ug/dL TIBC Normal 256 LAB L503.6150 50-170 ug/dL IRON Normal 55 LAB L503.6250 15.0-55.0 % IRON Normal SATURATION 21.5 Performed By: #### L503.6030, L503.6550 #### Laboratory [address] [place], [address] FERRITIN Collected: 01/20/2018 Status: F Source: [place] 1:05 PM [facility] [place] TYPE CODE TESTS RESULT OUT OF REFERENCE UNITS RANGE LAB L503.6550 8-252 ng/mL High FERRITIN 615 Performed By: #### L503.6030, L503.6550 #### Laboratory [address] [place], [address] CBC W/DIFF, AUTOMATED Collected: 01/20/2018 Status: F Source: [place] 12:48 PM [facility] [place] [facility] Order Comment: Reason for Laboratory Test . TYPE CODE TESTS RESULT OUT OF RANGE REFERENCE UNITS LAB L100.1000 4.4-11.0 K/mm3 Normal WBC 7.7 LAB L100.1200 4.2-5.4 M/mm3 Low RBC 3.26 LAB L100.1300 12.0-15.0 g/dl Low HGB 10.2 LAB L100.1400 37-47 % Low HCT 32.6 LAB L100.1500 81-99 fL High MCV 100.0 LAB L100.1600 27.0-32.0 pg Normal MCH 31.3 LAB L100.1700 32-36 g/gl Low MCHC 31.3 LAB L100.1810 11.6-14.6 % High RDW CV 17.3 LAB L100.1820 35.1-43.9 fl High RDW SD 61.9 LAB L100.1900 150-450 K/mm3 Low PLT 141 LAB L100.2000 6.2-12.0 fl Normal MPV 9.6 LAB L100.2100 47-70 % High NEUT% 81.4 LAB L100.2200 19-41 % Low LY% 9.9 LAB L100.2300 0-10 % Normal MONO% 7.9 LAB L100.2400 0-5 % Normal EO% 0.0 LAB L100.2500 0-1 % Normal BASO% 0.3 LAB L100.2550 0.0-0.9 % Normal IM GRAN % 0.500 Result Comment: IG% - Immature Granulocytes (promyelocytes, myelocytes and metamyelocytes) > 1% indicates that a LEFT SHIFT is Present. LAB L100.2620 2.0-7.7 X10 3/uL Normal Absolute Neut 6.3 LAB L100.2720 0.83-4.51 X10 3/ul Low Absolute Lymph 0.76 Performed By: #### L100.0100 #### Laboratory [address] [place], [place], [address] SURGERY VISIT REPORT Observed: 01/11/2018 Status: F Source: [place] 3:30 PM [facility] [place] [facility] 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 Required: No Is patient in pain?: No Allergies NEGRO Inhibitors Allergy (Verified 01/11/18 11:29) Angioedema lisinopril Allergy (Verified 01/11/18 11:29) Angioedema Sulfa (Sulfonamide Antibiotics) Allergy (Verified 01/11/18 11:29) Rash sulfamethoxazole [From Bactrim] Allergy (Verified 01/11/18 11:29) Rash trimethoprim [From Bactrim] Allergy (Verified 01/11/18 11:29) Rash Medications Atorvastatin Calcium [Lipitor] 20 mg PO QHS 10/01/16 [History Confirmed 01/11/18] Duloxetine Hcl [Cymbalta] 120 mg PO DAILY 10/01/16 [History Confirmed 01/11/18] Hydroxychloroquine [Plaquenil] 200 mg PO BIDCM 10/01/16 [History Confirmed 01/11/18] Linagliptin [Tradjenta] 5 mg PO DAILY 10/01/16 [History Confirmed 01/11/18] Montelukast [Singulair] 10 mg PO QHS 10/01/16 [History Confirmed 01/11/18] Acyclovir [Zovirax] 400 mg PO TID PRN 10/26/16 [History Confirmed 01/11/18] Ergocalciferol [Vitamin D] 1.25 cap PO QMONTH 01/21/17 [History Confirmed 01/11/18] Amlactin Ultra Body Cream 1 applic TOPICAL DAILY PRN 02/17/17 [History Confirmed 01/11/18] Cevimeline HCl [Evoxac] 30 mg PO TID 02/17/17 [History Confirmed 01/11/18] Dextroamphetamine/Amphetamine [Adderall Xr 10 mg Capsule] 15 mg PO BID 07/22/17 [History Confirmed 01/11/18] Estradiol [Estrace] 1 mg PO QHS 09/27/17 [History Confirmed 01/11/18] Pregabalin [Lyrica] 50 mg PO BID 09/27/17 [History Confirmed 01/11/18] omeprazole 40 mg capsule,delayed release 40 mg PO QDAY 12/08/17 [History Confirmed 01/11/18] paroxetine 10 mg tablet 10 mg PO QDAY 12/08/17 [History Confirmed 01/11/18] Sevelamer Carbonate 2,400 mg PO TID 12/09/17 [History Confirmed 01/11/18] furosemide 40 mg tablet 40 mg PO BID tab 01/11/18 [History Confirmed 01/11/18] metoprolol tartrate 25 mg tablet 25 mg PO BID 01/11/18 [History Confirmed 01/11/18] prednisone 10 mg tablet 5 mg PO DAILYCM tab 01/11/18 [History Confirmed 01/11/18] vitamin B complex and vitamin C no.20-folic acid 1 mg capsule 1 cap PO QDAY 01/11/18 [History Confirmed 01/11/18] [facility] Medical History Nonrheumatic mitral (valve) insufficiency (Chronic) Secondary pulmonary arterial hypertension (Chronic) Non-rheumatic tricuspid valve insufficiency (Chronic) End stage renal disease (Chronic) Problem with dialysis access (Acute) Chronic anemia (Chronic) Hypertension (Chronic) Narcolepsy (Chronic) Lupus nephritis (Chronic) Degenerative disc disease, cervical (Chronic) Cervical spondylosis (Chronic) Colitis (Acute) Leukopenia (Acute) Diabetes mellitus, type II (Chronic) SLE (systemic lupus erythematosus) (Chronic) Status post left heart catheterization (Acute) Acute renal failure (Resolved) Chronic kidney disease (Resolved) Dehydration with hyponatremia (Resolved) Hyperkalemia (Resolved) Unresponsiveness (Resolved) Surgical History History of esophagogastroduodenoscopy (EGD) (Acute) Presence of surgically created arteriovenous shunt for hemodialysis (Acute) S/P colonoscopy (Acute) S/P lymph node biopsy (Acute) S/P nasal polypectomy (Acute) Status post carpal tunnel release (Acute) Status post total hip replacement, bilateral (Acute) Family History Mother Diabetes Hypertension Kidney disease Father Heart disease Hypertension Kidney disease Social History Smoking Status: Never smoker second hand exposure: No alcohol intake: never substance use type: does not use caffeine: No what type of physical activity do you participate in: other HPI HPI HPI: PAVITHRA PAINTER, is a 47 F I am following for chronic renal failure. Dr. Valverde performed a right tunneled chest catheters and transposition left upper arm basilic vein to brachial artery arteriovenous fistula creation on 12/10/2017. Patient tolerated the procedure well. She notes incisional discomfort and left hand discomfort. She denies numbness/tingling of the fingers. She notes swelling of the hand. Patient notes her chest catheters have been working well. Patient returns for a follow-up with continued swelling of the left upper extremity. 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 She denies numbness/tingling. She notes minimal amount of discomfort. Patient notes her swelling decreased with the negro wrap and also following dialysis. Exam Extrem Other: Left upper extremity- less swelling than last week. Excellent pulse, bruit and thrill of the left upper extremity AV fistula. Incision nicely healed. Upper extremity non-tender to palpation. Assessment AND Plan Problems 1. End stage renal disease N18.6 Plan - Continue hand exercises - Elevate left upper extremity - Follow-up in 3 weeks for re-evaluation. Coding Level of Care Code Global Post Op Diagnoses End stage renal disease N18.6 01/11/18 1530 <Electronically signed by Anabela Lewis PA-C> Date Anabela Lewis PA-C Cosigner Signature: Date (if applicable) CC: Mitchell Womack MD PULMONARY VISIT REPORT Observed: 01/11/2018 Status: F Source: [place] 2:14 PM [facility] [place] [facility] [address] [address] [place] [address] OFFICE VISIT Date of Service: 01/11/18 MR#: [id number] Acct: [id number] Name: PAVITHRA PAINTER Rep #: [id number] : 1970 Provider: Drew Goode D.O. Age/Sex: 47/F Location[place] [facility] [place] Status: Signed Assessment AND Plan Problems 1. SLE (systemic lupus erythematosus) M32.9 Plan The patient has underlying lupus with associated end-stage renal disease for which she is on hemodialysis. He was admitted to the intensive care unit back in September 2017 with acute respiratory failure in the setting of encephalopathy with aspiration pneumonia. The patient has made a full recovery to this point. She has no active pulmonary issues. There is no indication for any testing at this time. The patient can follow-up with us on an as-needed basis in the future. Plan Detail Follow Up PRN HPI HPI Comments Details: The patient is a 47-year-old female who presents to the clinic today in follow-up from a recent hospitalization. I initially saw the patient in September 2017 when she was admitted to the hospital with acute respiratory failure felt to be secondary to metabolic/infectious encephalopathy. The patient was also treated with antibiotics for presumptive aspiration pneumonia. Her hospital course was complicated by the development of C. difficile colitis. The patient does have a history of end-stage renal disease, for which she is on scheduled hemodialysis. Patient reports overall stability in her breathing quality. She is a mild degree of chronic baseline shortness of breath with exertion, unchanged from previous. She is a lifelong non-smoker and denies any significant secondhand smoke exposure. She was never diagnosed with asthma as a child. She is currently being worked up for potential D AND C and needs cardiac clearance in the form of a stress test and echocardiogram. She denies fevers, chills or night sweats. Her weight has been stable. She denies chest pain, dizziness or lightheadedness. Intake Vital Signs01/11/18 Height 5 ft 4 in 01/11/18 Weight: 151 lb Intake Visit Reasons: Hospital FU Accompanied by: Self Allergies NEGRO Inhibitors Allergy (Verified 01/11/18 11:29) Angioedema lisinopril Allergy (Verified 01/11/18 11:29) Angioedema Sulfa (Sulfonamide Antibiotics) Allergy (Verified 01/11/18 11:29) Rash sulfamethoxazole [From Bactrim] Allergy (Verified 01/11/18 11:29) Rash trimethoprim [From Bactrim] Allergy (Verified 01/11/18 11:29) Rash Medications Atorvastatin Calcium [Lipitor] 20 mg PO QHS 10/01/16 [History Confirmed 01/11/18] Duloxetine Hcl [Cymbalta] 120 mg PO DAILY 10/01/16 [History Confirmed 01/11/18] Hydroxychloroquine [Plaquenil] 200 mg PO BIDCM 10/01/16 [History Confirmed 01/11/18] Linagliptin [Tradjenta] 5 mg PO DAILY 10/01/16 [History Confirmed 01/11/18] Montelukast [Singulair] 10 mg PO QHS 10/01/16 [History Confirmed 01/11/18] Acyclovir [Zovirax] 400 mg PO TID PRN 10/26/16 [History Confirmed 01/11/18] Ergocalciferol [Vitamin D] 1.25 cap PO QMONTH 01/21/17 [History Confirmed 01/11/18] Amlactin Ultra Body Cream 1 applic TOPICAL DAILY PRN 02/17/17 [History Confirmed 01/11/18] Cevimeline HCl [Evoxac] 30 mg PO TID 02/17/17 [History Confirmed 01/11/18] Dextroamphetamine/Amphetamine [Adderall Xr 10 mg Capsule] 15 mg PO BID 07/22/17 [History Confirmed 01/11/18] Estradiol [Estrace] 1 mg PO QHS 09/27/17 [History Confirmed 01/11/18] Pregabalin [Lyrica] 50 mg PO BID 09/27/17 [History Confirmed 01/11/18] omeprazole 40 mg capsule,delayed release 40 mg PO QDAY 12/08/17 [History Confirmed 01/11/18] paroxetine 10 mg tablet 10 mg PO QDAY 12/08/17 [History Confirmed 01/11/18] Sevelamer Carbonate 2,400 mg PO TID 12/09/17 [History Confirmed 01/11/18] furosemide 40 mg tablet 40 mg PO BID tab 01/11/18 [History Confirmed 01/11/18] metoprolol tartrate 25 mg tablet 25 mg PO BID 01/11/18 [History Confirmed 01/11/18] prednisone 10 mg tablet 5 mg PO DAILYCM tab 01/11/18 [History Confirmed 01/11/18] vitamin B complex and vitamin C no.20-folic acid 1 mg capsule 1 cap PO QDAY 01/11/18 [History Confirmed 01/11/18] [facility] Medical History Nonrheumatic mitral (valve) insufficiency (Chronic) Secondary pulmonary arterial hypertension (Chronic) Non-rheumatic tricuspid valve insufficiency (Chronic) End stage renal disease (Chronic) Problem with dialysis access (Acute) Chronic anemia (Chronic) Hypertension (Chronic) Narcolepsy (Chronic) Lupus nephritis (Chronic) Degenerative disc disease, cervical (Chronic) Cervical spondylosis (Chronic) Colitis (Acute) Leukopenia (Acute) Diabetes mellitus, type II (Chronic) SLE (systemic lupus erythematosus) (Chronic) Status post left heart catheterization (Acute) Acute renal failure (Resolved) Chronic kidney disease (Resolved) Dehydration with hyponatremia (Resolved) Hyperkalemia (Resolved) Unresponsiveness (Resolved) Surgical History History of esophagogastroduodenoscopy (EGD) (Acute) Presence of surgically created arteriovenous shunt for hemodialysis (Acute 11/2017) S/P colonoscopy (Acute) S/P lymph node biopsy (Acute) S/P nasal polypectomy (Acute) Status post carpal tunnel release (Acute) Status post total hip replacement, bilateral (Acute) Family History Mother Diabetes Hypertension Kidney disease Father Heart disease Hypertension Kidney disease Social History Smoking Status: Never smoker second hand exposure: No alcohol intake: never substance use type: does not use caffeine: No what type of physical activity do you participate in: other Review of Systems Const CONSTITUTIONAL: Positive night sweats; negative anorexia, body ache, chills, daytime sleepiness, fever(s), oral thrush, stops breathing during sleep, weight loss, sleeping in chair, fatigue, weight loss, weight gain, frequent colds, seasonal allergies, other, headache(s) or orthopnea EETM Ear Nose Throat Mouth: Positive hearing normal, hoarseness and sinus pressure; negative hard of hearing, dry mouth in morning, change in vision, itchy eyes, eye pain, swallowing Difficulty, ear pain, nose bleed, headache(s), mouth pain, nasal congestion, nasal discharge, post nasal drip, sinus pain, sore throat or other Cardio Cardiovascular: Negative chest pain, chest pain at rest, chest pain with activity, irregular heart rhythm, edema, shortness of breath when lying down, palpitations, murmur or other Resp Respiratory: Positive as per HPI and shortness of breath shortness of breath: Positive with activity; negative pain with cough, wheezing, chest congestion, cough, chest tightness, pain on inspiration, inhalers, increase use of rescue inhalers, snoring, apnea or other Gastro Gastrointestional: Negative bloody stools, change in appetite, difficulty swallowing, reflux, hematemesis, melena stool, loose stool, constipation or other Genitourinary: Negative blood in urine, nocturia, pain with urination or other Musc Musculoskeletal: Negative body pain, back pain, neck pain or other Skin/Breast Skin/Breast: Negative dry skin, itching, rash, unusual bruising, breast lump or other Neuro Neurological: Positive restless legs; negative confusion, weakness or other Psych Psychocological: Positive abnormal sleep pattern; negative anxiety, thoughts of hurting self/others, hopelessness or other Lymph Lymphatic: Negative easy bleeding, easy bruising, swollen lymph nodes or other Exam Const Constitutional: Positive conversant, cooperative, in no acute respiratory distress, well developed, well nourished and good hygiene Head Head: Positive normocephalic and atraumatic; negative cyanosis of lips/distal nose Eyes Eye: Positive clear conjunctiva; negative nystagmus or scleral abnormality Ears Ear: Positive hearing normal and external ears normal; negative hard of hearing Nose Nose: Positive external nose normal; negative epistaxis Mouth Mouth: Positive oral mucosae normal and posterior oropharynx is adequate; negative no lesions or post nasal drip Mallampati Score: II: Mallampati Score Neck Neck: Positive normal visual inspection and trachea midline; negative lymphadenopathy Chest Wall Chest: Positive symmetric chest movement Normal AP diameter. Resp lung sounds: Positive clear to auscultation and good air exchange; negative wheezes, rhonchi or rales Cardio Cardiac: Positive regular rate, regular rhythm, S1 normal and S2 normal; negative rub, gallop or murmur GI GI: Positive normal bowel sounds Soft without distention Genitourinary: Positive deferred Musc Musculoskeletal: Positive steady gait Skin Pulmonary Skin Exam: Positive intact; negative lesion, ulcers, dermal atrophy or rash Pulses Pulse: Yes Pedal pulses present: Extremities Extremities: No clubbing, No cyanosis, No edema Neuro Neurologic: Yes conversant, Yes no focal neuro deficits, Yes cooperative Lymph Lymphatic: No lymphadenopathy Psych Appearance: Positive grossly normal Mental Status: Positive mental status grossly normal Mood: Positive congruent mood Affect: Positive flat Coding Level of Care Code Off vis,est,level 3 Diagnoses SLE (systemic lupus erythematosus) M32.9 01/11/18 1414 <Electronically signed by Drew Goode DO> Date Drew Goode DO Cosigner Signature: Date (if applicable) CC: Drew Goode D.O. CARDIOLOGY VISIT Observed: 01/11/2018 Status: F Source: [place] RE[facility] 12:13 PM [facility] [address] [place] [address]. [address] [place] [address] OFFICE VISIT Date of Service: 01/11/18 MR#: [id number] Acct: [id number] Name: PAVITHRA PAINTER Rep #: [id number] : 1970 Provider: Cesar Roberts MD Age/Sex: 47/F Location: [facility] Status: Signed HPI HPI Chief Complaint: Preop cardiac risk stratification Details: PAVITHRA PAINTER, is a 47 F with a history of diabetes, hypertension, hyperlipidemia, end-stage renal disease currently on dialysis due to lupus nephritis, who was referred to our office for preoperative stratification for D AND C. Specifically, due to her medications and lupus she has been postmenopausal for the past 10 years, and is recently had intermittent bleeding requiring further evaluation. In addition she has been on the renal transplant list at for the better part of a year, and reportedly had a cardiac workup in July 2017 including a stress test and an echocardiogram although we do not have those results in front of us. She did undergo a catheterization more than 10 years ago at [facility] she cannot recall the reason why. She did undergo an echocardiogram on 01/09/16 at [facility] which demonstrated intact LV function of 60%, mild diffuse mitral thickening, 1+ MR, moderate 2+ TR, RVSP of at least 50 mmHg. Since the fall 2016 the patient is undergone a left arm fistula which has not yet matured. Her hemodialysis occurs 3 times per week via a catheter in her right subclavian. She has had no exertional chest pain, angina, but does complain of dyspnea on exertion and shortness of breath. She has no symptoms during dialysis. In our office today her blood pressure is 120/62, pulse is 92 and regular. Physical exam is as below. Lipids are pending. test dated 12/10/17 is negative. EKG dated 09/27/17 shows normal sinus rhythm, normal axis, normal intervals, early R-wave progression across the precordium which may be secondary to lead misplacement. Intake Vital Signs01/11/18 Height 5 ft 4 in Intake Visit Reasons: Clearance for D AND C (MarcAnthony) Allergies NEGRO Inhibitors Allergy (Verified 01/11/18 11:29) Angioedema lisinopril Allergy (Verified 01/11/18 11:29) Angioedema Sulfa (Sulfonamide Antibiotics) Allergy (Verified 01/11/18 11:29) Rash sulfamethoxazole [From Bactrim] Allergy (Verified 01/11/18 11:29) Rash trimethoprim [From Bactrim] Allergy (Verified 01/11/18 11:29) Rash Medications Atorvastatin Calcium [Lipitor] 20 mg PO QHS 10/01/16 [History Confirmed 01/11/18] Duloxetine Hcl [Cymbalta] 120 mg PO DAILY 10/01/16 [History Confirmed 01/11/18] Hydroxychloroquine [Plaquenil] 200 mg PO BIDCM 10/01/16 [History Confirmed 01/11/18] Linagliptin [Tradjenta] 5 mg PO DAILY 10/01/16 [History Confirmed 01/11/18] Montelukast [Singulair] 10 mg PO QHS 10/01/16 [History Confirmed 01/11/18] Acyclovir [Zovirax] 400 mg PO TID PRN 10/26/16 [History Confirmed 01/11/18] Ergocalciferol [Vitamin D] 1.25 cap PO QMONTH 01/21/17 [History Confirmed 01/11/18] Amlactin Ultra Body Cream 1 applic TOPICAL DAILY PRN 02/17/17 [History Confirmed 01/11/18] Cevimeline HCl [Evoxac] 30 mg PO TID 02/17/17 [History Confirmed 01/11/18] Dextroamphetamine/Amphetamine [Adderall Xr 10 mg Capsule] 15 mg PO BID 07/22/17 [History Confirmed 01/11/18] Estradiol [Estrace] 1 mg PO QHS 09/27/17 [History Confirmed 01/11/18] Pregabalin [Lyrica] 50 mg PO BID 09/27/17 [History Confirmed 01/11/18] omeprazole 40 mg capsule,delayed release 40 mg PO QDAY 12/08/17 [History Confirmed 01/11/18] paroxetine 10 mg tablet 10 mg PO QDAY 12/08/17 [History Confirmed 01/11/18] Sevelamer Carbonate 2,400 mg PO TID 12/09/17 [History Confirmed 01/11/18] furosemide 40 mg tablet 40 mg PO BID tab 01/11/18 [History Confirmed 01/11/18] metoprolol tartrate 25 mg tablet 25 mg PO BID 01/11/18 [History Confirmed 01/11/18] prednisone 10 mg tablet 5 mg PO DAILYCM tab 01/11/18 [History Confirmed 01/11/18] vitamin B complex and vitamin C no.20-folic acid 1 mg capsule 1 cap PO QDAY 01/11/18 [History Confirmed 01/11/18] [facility] Medical History Nonrheumatic mitral (valve) insufficiency (Chronic) Secondary pulmonary arterial hypertension (Chronic) Non-rheumatic tricuspid valve insufficiency (Chronic) End stage renal disease (Chronic) Problem with dialysis access (Acute) Chronic anemia (Chronic) Hypertension (Chronic) Narcolepsy (Chronic) Lupus nephritis (Chronic) Degenerative disc disease, cervical (Chronic) Cervical spondylosis (Chronic) Colitis (Acute) Leukopenia (Acute) Diabetes mellitus, type II (Chronic) SLE (systemic lupus erythematosus) (Chronic) Status post left heart catheterization (Acute) Acute renal failure (Resolved) Chronic kidney disease (Resolved) Dehydration with hyponatremia (Resolved) Hyperkalemia (Resolved) Unresponsiveness (Resolved) Surgical History History of esophagogastroduodenoscopy (EGD) (Acute) Presence of surgically created arteriovenous shunt for hemodialysis (Acute 11/2017) S/P colonoscopy (Acute) S/P lymph node biopsy (Acute) S/P nasal polypectomy (Acute) Status post carpal tunnel release (Acute) Status post total hip replacement, bilateral (Acute) Family History Mother Diabetes Hypertension Kidney disease Father Heart disease Hypertension Kidney disease Social History Smoking Status: Never smoker ROS Const Const: Positive for fatigue and other (LUE fistula and Right Chest Dialysis Catheters); negative for weakness, difficulty sleeping, frequent falls, headache(s) or excessive sweating Eyes Eyes: Negative for loss of peripheral vision, transient loss of vision, blurry vision or double vision ENT ENT: Negative for headache(s), dizziness, Nosebleed/epistaxis or balance problems Cardio Chest Pain: No Edema: None Muscle aches with walking: None Resp Respiratory: Positive for SOB with activity (When climbing stairs); negative for SOB at rest, SOB orthopnea\SOB lying down or paroxysmal nocturnal dyspnea GI GI: Negative nausea or heartburn : Negative for hematuria Musc Musc: Negative for muscle aches/ myalgia, muscle weakness, joint pain or balance problems Skin Skin: Negative non-healing lesions, unusual bruising or rash Neuro Neuro: Positive for orthostatic symptoms (Occasional); negative for weakness, frequent falls, blurry vision, headache(s), dizziness, lightheadedness or double vision Johny Hematologic/Lymphatic: Negative for easy bruising Endo Endo: Positive for fatigue; negative for excessive sweating or increased thirst/drinking Psych Psych: Negative for anxiety or depression Allergy Allergy/Immunology: Negative for hives, Negative for rash Cardiology Exam Const Appearance: cooperative, healthy appearing and no acute distress Nutritional Appearance: well nourished Orientation: alert, oriented x3 and oriented to person Head Head: normal to inspection, atraumatic and normocephalic Nose: external nose normal Face and Sinus: face symmetric Mouth: oral mucosae normal Eyes General: appearance normal, both eyes and all related structures Eyelids: eyelids normal Conjunctivae: conjunctivae normal Pupils: PERRL and normal by confrontation EOM: EOM intact bilaterally Neck Neck: normal visual inspection and full ROM Carotids: normal carotid upstroke Chest Chest inspection: normal inspection of the chest Auscultation: Bilateral: Clear to Auscultation Cardio Palpation: normal PMI Rate: regular rate Rhythm: regular rhythm Heart sounds: S2 normal Murmur: Grade 2/6 and holosystolic GI GI: normal to inspection, no hepatosplenomegaly and bowel sounds present Neuro General: alert, oriented x3, awake, CN's II-XI intact bilaterally and moves all extremities Skin Skin: no rashes or lesions noted Extremities Pulses: Normal: Right Femoral Pulse, Left Femoral Pulse, Right Dorsalis Pedis Pulse, Left Dorsalis Pedis Pulse, Right Posterior Tibial Pulse, Left Posterior Tibial Pulse, Right Radial Pulse, Left Radial Pulse Lower Extremity Edema: None: Bilateral Psych Psychological: normal affect Assessment AND Plan 1. Preop cardiovascular exam Z01.810 Plan 1. Preoperative cardiac risk assessment: Patient has several risk factors for premature coronary disease including end-stage renal disease, hypertension, diabetes, and has evidence of pulmonary hypertension on echocardiogram from 2016. Patient now has new onset vaginal bleeding after being postmenopausal for the past 10 years requiring at the very least a D AND C and possibly hysterectomy. To expedite the patient's cardiac workup I recommend that she undergo a repeat echocardiogram to assess her pulmonary pressures, mitral status and LV function. In addition I recommend that she undergo a treadmill echocardiogram for cardiac risk stratification. In addition, this will benefit the patient should she obtain a renal transplant between now and July 2018. If this is grossly abnormal for ischemia she may require diagnostic coronary angiogram prior to her procedure. If her stress test is negative and her echo shows intact LV function she will be deemed at low risk for noncardiac surgery. Given her diabetes and renal disease she requires aggressive LDL reduction. We will request the most recent lipid profile from Dr. Fields's office. In the meantime she will continue Lipitor. Her LDL should be less than 70. Would recommend judicious use of IV fluids during surgery to avoid worsening her pulmonary pressures. 2. Return office in 6 months. This note was generated using a voice recognition system and there may be incorrect words, spelling or punctuation that were not noted when reviewing the office note prior to saving. Orders Orders: Plan Detail Other Orders Orders: Other Medications Discontinued: hydrocodone-acetaminophen 5-325 mg 1 tab PO Q6H PRN 3 days PRN Pain G89.18 Carlene Vences Discontinued Reason: Order Comple rima Follow Up +6M (Andrew) Coding Level of Care Code Off vis,new,level 4 Diagnoses Preop cardiovascular exam Z01.810 Coding Level of Care Code Off vis,new,level 4 Diagnoses Preop cardiovascular exam Z01.810 01/11/18 1213 <Electronically signed by Cesar Roberts MD> Date Cesar Roberts MD Cosign Signature: Date (if applicable) CC: Mitchell Womack MD SURGERY VISIT REPORT Observed: 01/10/2018 Status: F Source: [place] 3:30 PM [facility] [address] [place] [address]. [address] [place] [address] OFFICE VISIT Date of Service: 01/06/18 MR#: [id number] Acct: [id number] Name: PAVITHRA PAINTER Rep #: [id number] : 1970 Provider: Anabela Lewis PA-C Age/Sex: 47/F Location: [facility] Status: Signed Intake Intake Visit Reasons: Chest Cath AND fistula creation Film Or Tape Librarian Required: No Is patient in pain?: No Allergies NEGRO Inhibitors Allergy (Verified 01/06/18 14:15) Angioedema lisinopril Allergy (Verified 01/06/18 14:15) Angioedema Sulfa (Sulfonamide Antibiotics) Allergy (Verified 01/06/18 14:15) Rash sulfamethoxazole [From Bactrim] Allergy (Verified 01/06/18 14:15) Rash trimethoprim [From Bactrim] Allergy (Verified 01/06/18 14:15) Rash Medications Atorvastatin Calcium [Lipitor] 20 mg PO QHS 10/01/16 [History Confirmed 01/06/18] Duloxetine Hcl [Cymbalta] 120 mg PO DAILY 10/01/16 [History Confirmed 01/06/18] Furosemide [Lasix] 40 mg PO BIDLX 10/01/16 [History Confirmed 01/06/18] Hydroxychloroquine [Plaquenil] 200 mg PO BIDCM 10/01/16 [History Confirmed 01/06/18] Linagliptin [Tradjenta] 5 mg PO DAILY 10/01/16 [History Confirmed 01/06/18] Montelukast [Singulair] 10 mg PO QHS 10/01/16 [History Confirmed 01/06/18] Acyclovir [Zovirax] 400 mg PO TID PRN 10/26/16 [History Confirmed 01/06/18] Ergocalciferol [Vitamin D] 1.25 cap PO QMONTH 01/21/17 [History Confirmed 01/06/18] Amlactin Ultra Body Cream 1 applic TOPICAL DAILY PRN 02/17/17 [History Confirmed 01/06/18] Cevimeline HCl [Evoxac] 30 mg PO TID 02/17/17 [History Confirmed 01/06/18] Dextroamphetamine/Amphetamine [Adderall Xr 10 mg Capsule] 15 mg PO BID 07/22/17 [History Confirmed 01/06/18] Estradiol [Estrace] 1 mg PO QHS 09/27/17 [History Confirmed 01/06/18] Metoprolol Succinate [Toprol Xl] 50 mg PO BID 09/27/17 [History Confirmed 01/06/18] Pregabalin [Lyrica] 50 mg PO BID 09/27/17 [History Confirmed 01/06/18] predniSONE tablet 10 mg PO DAILYCM 09/27/17 [History Confirmed 01/06/18] omeprazole 40 mg capsule,delayed release 40 mg PO QDAY 12/08/17 [History Confirmed 01/06/18] paroxetine 10 mg tablet 10 mg PO QDAY 12/08/17 [History Confirmed 01/06/18] Calcium Acetate [Phoslo Gel Cap] 2,001 mg PO TIDCM 12/09/17 [History Confirmed 01/06/18] Lactobacillus Acidophilus [Acidophilus] 1 ea PO TID 12/09/17 [History Confirmed 01/06/18] Sevelamer Carbonate 2,400 mg PO TID 12/09/17 [History Confirmed 01/06/18] Triphrocaps 1 mg PO DAILY 12/09/17 [History Confirmed 01/06/18] Vancomcyin 125 MG/ 5 ML Susp [Vancomycin 125mg/5mL Susp] 125 mg PO Q6 12/09/17 [History Confirmed 01/06/18] Hydrocodone Bitart/Apap 5-325 [[place] 5MG-325MG] 1 tab PO Q6H PRN PRN 3 Days #10 tab 12/10/17 [Rx Confirmed 01/06/18] PFSH Medical History Problem with dialysis access (Acute) Dehydration with hyponatremia (Acute) Chronic anemia (Chronic) Hyperkalemia (Acute) Acute renal failure (Acute) Chronic kidney disease (Chronic) Hypertension (Chronic) Narcolepsy (Chronic) Lupus nephritis (Chronic) Degenerative disc disease, cervical (Chronic) Cervical spondylosis (Chronic) Unresponsiveness (Acute) Colitis (Acute) Leukopenia (Acute) Diabetes mellitus, type II (Chronic) SLE (systemic lupus erythematosus) (Chronic) Status post left heart catheterization (Acute) Surgical History History of esophagogastroduodenoscopy (EGD) (Acute) Presence of surgically created arteriovenous shunt for hemodialysis (Acute) S/P colonoscopy (Acute) S/P lymph node biopsy (Acute) S/P nasal polypectomy (Acute) Status post carpal tunnel release (Acute) Status post total hip replacement, bilateral (Acute) Family History Mother Diabetes Hypertension Kidney disease Father Heart disease Hypertension Kidney disease Social History Smoking Status: Never smoker HPI HPI HPI: PAVITHRA PAINTER, is a 47 F I am following for chronic renal failure. Dr. Valverde performed a right tunneled chest catheters and transposition left upper arm basilic vein to brachial artery arteriovenous fistula creation on 12/10/2017. Patient tolerated the procedure well. She notes incisional discomfort and left hand discomfort. She denies numbness/tingling of the fingers. She notes swelling of the hand. Patient notes her chest catheters have been working well. Patient returns for a follow-up noting continued swelling of the left upper extremity. 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 She denies numbness/tingling. She notes minimal amount of discomfort. Exam Extrem Other: Left upper extremity- good pulse, bruit and thrill. Moderate amount of swelling of the entire arm noted. Arm was lightly wrapped with negro wrap. Assessment AND Plan Problems 1. Chronic renal failure, stage 5 N18.5 Plan - Dialysis catheters working well - Continue hand exercises - Leave negro wrap in place - follow-up early next Wednesday or Wednesday Coding Level of Care Code Global Post Op Diagnoses Chronic renal failure, stage 5 N18.5 01/10/18 1530 <Electronically signed by Anabela Lewis PA-C> Date Anabela Lewis PA-C Cosigner Signature: Date (if applicable) CC: Mitchell Womack MD INITAL EVALUATION (1) Observed: 01/04/2018 Status: F Source: [facility] - PT 1:35 PM [facility] [address] [place] [address]. [address] [place], [place] [address] Fax REHABILITATION SERVICES INITIAL EVALUATION MR#: [id number] Acct: [id number] Name: PAVITHRA PAINTER Rep #: [id number] : 1970 47 From: Maureen Solis PT, Cert. MDT Referring Dr.: Mitchell Womack MD Status: REG RCR Insurance: MEDICARE PART A B MEDICAID Patient's Visit Information PAVITHRA PAINTER is a 47 year old F referred to Physical Therapy by Mitchell Womack with a diagnosis of DEBILITY. Date of Evaluation: 01/04/18 Physical Therapist: Maureen Solis - Visit Plan Frequency: 2-3x /Week Duration: 4-6 Weeks Plan: *LEFT CENTRAL NOAH LINE* POSTURE CORRECTION/STRENGTHENING, INSTRUCTION IN APPROPRIATE BODY MECHANICS. CORE STRENGTHENING. SHAN UE AND LE STRENGTHENING. HEP INSTRUCTION. - Subjective Subjective: Diagnosis: DEBILITY. Work/Leisure: UNEMPLOYEED. Disability: YES. Present symptoms: NECK, SHAN SHOULDER, LOW BACK AND SHAN KNEE PAIN. NEURAPATHY IN TOES AND FINGERS. Present since: 20 YEARS. Pain Scale: WORST 9/10, LEAST 4/10. Currently: 5/10. IMPROVING SLOWLY. Commenced as a result of: DECEMBER 15 2017 - CATHETER AND FISTUAL SURGERY IN PART INCREASED HER DEBILITY. Symptoms at onset: A SCALELY PATCH ON HER SCALP WAS HER FIRST SYMPTOM AND SHE WAS DIAGNOSED WITH SEVERE DERMATITIS AND THEN SHE WAS EVENTUALLY DIAGNOSED WITH LUPUS AFTER GETTING NON BACTERIAL, NON VIRAL MENENGITIS. SHE REPORTS HER GRAFT WAS CLOTTED AND SHE NEEDED A NEW WAY TO GET DIALYSIS. Worse: LIFTING, OVER EXERTING, POOR SLEEP. Better: REST AND SOMETIMES STRETCHING. Disturbed sleep: YES. Previous history/Previous treatment: LAND AND WATER EX'S. PATIENT PREFERS LAND. Gait: DISTANCE LIMITED. ENDURANCE IS A PROBLEM. STAIRS ARE DIFFICULT. HIP AND KNEE PAIN ALSO LIMITS HER WALKING SOMETIMES. PMH: Medical History. Problem with dialysis access (Acute). Dehydration with hyponatremia (Acute). Chronic anemia (Chronic). Hyperkalemia (Acute). Acute renal failure (Acute). Chronic kidney disease (Chronic). Hypertension (Chronic). Narcolepsy (Chronic). Lupus nephritis (Chronic). Degenerative disc disease, cervical (Chronic). Cervical spondylosis (Chronic). Unresponsiveness (Acute). Colitis (Acute). Leukopenia (Acute). Diabetes mellitus, type II (Chronic). SLE (systemic lupus erythematosus) (Chronic). Status post left heart catheterization (Acute). Surgical History: History of esophagogastroduodenoscopy (EGD) (Acute). Presence of surgically created arteriovenous shunt for hemodialysis (Acute). S/P colonoscopy (Acute). S/P lymph node biopsy (Acute). S/P nasal polypectomy (Acute). Status post carpal tunnel release (Acute). Status post total hip replacement, bilateral (Acute). *POSSIBLE D AND C PENDING. AWAITING MEDICAL CLEARANCE. - Objective Sitting Posture: POOR. Standing Posture: POOR. PATIENT IS VERY SLOUCHED WITH ROUNDED SHOULDERS AND FORWARD HEAD. Postural strength: POOR. Other Observations: INDEP GAIT INTO PT WITHOUT AD WITH SLOW CADANCE AND NO LOB. INDEP TRANSFER SIT TO STAND WITHOUT UE ASSIST. Motor deficit: SHAN UE AND LE STRENGTH GROSSLY 4-/5 WITH MMT'ING (WRISTS AND HANDS NT). ROM deficit: SHAN UE AND LE ROM WFL. Lumbar mvmt loss: flex - MIN. ext - MOD. R SG - MIN. L SG - MIN. Core strength: POOR. Scapular Strength: POOR. Cervical Mvmt Loss: CERVICAL ROM IS WFL ALL PLANES. OTHER: PATIENT HAS GENERALIZED WEEK AND POOR ENDURANCE. SHE IS ABLE TO SLS ON EACH LEG WITHOUT UE ASSIST X APPROX 8 SECONDS EACH. HER ENTIRE LEFT UE IS EDEMATOUS. OT CONSULT RECOMMENDED. PATIENT PLANS TO DISCUSS WITH DR. VALDEZ WEDNESDAY. FURTHER WRIST AND HAND TESTING DEFERRED TO OT. - Goals Goal 1:: INDEP AND SAFE GAIT ON ALL SURFACES WITH LEAST ASSISTIVE DEVICE X 1600 FEET WITH MILD SOB. Goal Time Frame: 4-6 Weeks Goal 2:: INDEP HEP FOR GENERAL UPPER AND LOWER BODY STRENGTHEING FOR CONTINUED IMPROVEMENT ONCE FORMAL PT CONCLUDES. Goal Time Frame: 4-6 Weeks - Rehabilitation Potential Rehabilitation Potential: Fair - Anticipated Interventions Patient/Client Instruction: Educate patient on: Condition, Plan of Care, Risk Factors, Benefits of Fitness Program For the Purpose of:: To improve self management Therapeutic Exercise to Include: Strength training, Endurance training, Balance training, Body mechanics, Postural training, Dynamic Lumbar Stabilization, Scapular Strength/Stabilization For the Purpose of:: To improve muscle performance and motor function, To increase tolerance to activity/condition/position, To improve ability of physical actions for home/community/work/leisure, To improve gait and locomotor functions, To improve endurance, To improve balance Thank you for the opportunity to evaluate your patient. For Medicare and Medicare HMO plans, please review the plan of care and approve it. It will need to be FAXED BACK to us at [phone] for Medicare purposes. Please let me know if there are questions or concerns regarding this plan of care. Physician Signature: Date: <Electronically signed by Maureen Solis PT, Cert. MDT> 01/04/18 1335 CC: Mitchell Womack MD LUCILA Signed For Medicare only, by signing this I certify the plan of care. Physicians Signature Date SURGERY VISIT REPORT Observed: 12/15/2017 Status: F Source: [place] 4:44 PM [facility] [address] [place] [address] OFFICE VISIT Date of Service: 12/15/17 MR#: [id number] Acct: [id number] Name: PAVITHRA PAINTER Rep #: [id number] : 1970 Provider: Rigo Valverde MD Age/Sex: 47/F Location: [facility] Status: Signed Intake Intake Visit Reasons: Fistula incision draining Allergies NEGRO Inhibitors Allergy (Verified 12/14/17 14:29) Angioedema lisinopril Allergy (Verified 12/14/17 14:29) Angioedema Sulfa (Sulfonamide Antibiotics) Allergy (Verified 12/14/17 14:29) Rash sulfamethoxazole [From Bactrim] Allergy (Verified 12/14/17 14:29) Rash trimethoprim [From Bactrim] Allergy (Verified 12/14/17 14:29) Rash Medications Atorvastatin Calcium [Lipitor] 20 mg PO QHS 10/01/16 [History Confirmed 12/14/17] Duloxetine Hcl [Cymbalta] 120 mg PO DAILY 10/01/16 [History Confirmed 12/14/17] Furosemide [Lasix] 40 mg PO BIDLX 10/01/16 [History Confirmed 12/14/17] Hydroxychloroquine [Plaquenil] 200 mg PO BIDCM 10/01/16 [History Confirmed 12/14/17] Linagliptin [Tradjenta] 5 mg PO DAILY 10/01/16 [History Confirmed 12/14/17] Montelukast [Singulair] 10 mg PO QHS 10/01/16 [History Confirmed 12/14/17] Acyclovir [Zovirax] 400 mg PO TID PRN 10/26/16 [History Confirmed 12/14/17] Ergocalciferol [Vitamin D] 1.25 cap PO QMONTH 01/21/17 [History Confirmed 12/14/17] Amlactin Ultra Body Cream 1 applic TOPICAL DAILY PRN 02/17/17 [History Confirmed 12/14/17] Cevimeline HCl [Evoxac] 30 mg PO TID 02/17/17 [History Confirmed 12/14/17] Dextroamphetamine/Amphetamine [Adderall Xr 10 mg Capsule] 15 mg PO BID 07/22/17 [History Confirmed 12/14/17] Estradiol [Estrace] 1 mg PO QHS 09/27/17 [History Confirmed 12/14/17] Metoprolol Succinate [Toprol Xl] 50 mg PO BID 09/27/17 [History Confirmed 12/14/17] Pregabalin [Lyrica] 50 mg PO BID 09/27/17 [History Confirmed 12/14/17] predniSONE tablet 10 mg PO DAILYCM 09/27/17 [History Confirmed 12/14/17] omeprazole 40 mg capsule,delayed release 40 mg PO QDAY 12/08/17 [History Confirmed 12/14/17] paroxetine 10 mg tablet 10 mg PO QDAY 12/08/17 [History Confirmed 12/14/17] Calcium Acetate [Phoslo Gel Cap] 2,001 mg PO TIDCM 12/09/17 [History Confirmed 12/14/17] Lactobacillus Acidophilus [Acidophilus] 1 ea PO TID 12/09/17 [History Confirmed 12/14/17] Sevelamer Carbonate 2,400 mg PO TID 12/09/17 [History Confirmed 12/14/17] Triphrocaps 1 mg PO DAILY 12/09/17 [History Confirmed 12/14/17] Vancomcyin 125 MG/ 5 ML Susp [Vancomycin 125mg/5mL Susp] 125 mg PO Q6 12/09/17 [History Confirmed 12/14/17] Hydrocodone Bitart/Apap 5-325 [[place] 5MG-325MG] 1 tab PO Q6H PRN PRN 3 Days #10 tab 12/10/17 [Rx Confirmed 12/14/17] PFSH Medical History Problem with dialysis access (Acute) Dehydration with hyponatremia (Acute) Chronic anemia (Chronic) Hyperkalemia (Acute) Acute renal failure (Acute) Chronic kidney disease (Chronic) Hypertension (Chronic) Narcolepsy (Chronic) Lupus nephritis (Chronic) Degenerative disc disease, cervical (Chronic) Cervical spondylosis (Chronic) Unresponsiveness (Acute) Colitis (Acute) Leukopenia (Acute) Diabetes mellitus, type II (Chronic) SLE (systemic lupus erythematosus) (Chronic) Status post left heart catheterization (Acute) Surgical History History of esophagogastroduodenoscopy (EGD) (Acute) Presence of surgically created arteriovenous shunt for hemodialysis (Acute) S/P colonoscopy (Acute) S/P lymph node biopsy (Acute) S/P nasal polypectomy (Acute) Status post carpal tunnel release (Acute) Status post total hip replacement, bilateral (Acute) Family History Mother Diabetes Hypertension Kidney disease Father Heart disease Hypertension Kidney disease Social History Smoking Status: Never smoker HPI HPI HPI: PAVITHRA PAINTER, is a 47 F who presents to the office today for surgical follow-up regarding a transposed left extremity basilic vein to brachial artery AV fistula. She was just seen yesterday. Dressings were undone and she would redress. She called in today stating that she is having drainage. The patient was permitted to shower or at least get the left upper extremity wet. She also has indwelling right chest hemodialysis catheters. Exam Extrem Other: Left upper extremity has essentially a nicely healing longitudinal incision. Fistula has a strong pulse, thrill, bruit. There is a very minimal amount of serous weep. There is moderate swelling of the left forearm and upper arm. Assessment AND Plan 1. Problem with dialysis access, subsequent encounter T82.730D Plan I have inspected the left upper extremity. All Steri-Strips were removed. I treated a very small focal area with silver nitrate. I painted the area with Betadine. Apply dry gauze. Then Kerlix. It is very gently placed Negro wrap. I have instructed the patient to keep the extremity clean and dry. I am hopeful that the strep will remain in place for 5 days. She has been receiving strict instructions to elevate the hand to limit any swelling. She has had an opportunity to ask and have questions answered. I absolutely see no evidence of any infection. Both the fistula and the hand appear to be quite viable. It is of additional notes that she does have a bovine graft cuff as a flow restrictor for her fistula Coding Level of Care Code Global Post Op Diagnoses Problem with dialysis access, subsequent encounter T82.898D Encounter type: subsequent encounter 12/15/17 1644 <Electronically signed by Rigo Valverde MD> Date Rigo Valverde MD Cosigner Signature: Date (if applicable) CC: SURGERY VISIT REPORT Observed: 12/14/2017 Status: F Source: [place] 4:40 PM [facility] [address] [place] [address] OFFICE VISIT Date of Service: 12/14/17 MR#: [id number] Acct: [id number] Name: PAVITHRA PAINTER Rep #: [id number] : 1970 Provider: Anabela Lewis PA-C Age/Sex: 47/F Location: [facility] Status: Signed Intake Intake Visit Reasons: chest catheters and fistula creation Film Or Tape Librarian Required: No Is patient in pain?: Yes (Left hand) Pain scale (1-10): 5 Allergies NEGRO Inhibitors Allergy (Verified 12/14/17 14:29) Angioedema lisinopril Allergy (Verified 12/14/17 14:29) Angioedema Sulfa (Sulfonamide Antibiotics) Allergy (Verified 12/14/17 14:29) Rash sulfamethoxazole [From Bactrim] Allergy (Verified 12/14/17 14:29) Rash trimethoprim [From Bactrim] Allergy (Verified 12/14/17 14:29) Rash Medications Atorvastatin Calcium [Lipitor] 20 mg PO QHS 10/01/16 [History Confirmed 12/14/17] Duloxetine Hcl [Cymbalta] 120 mg PO DAILY 10/01/16 [History Confirmed 12/14/17] Furosemide [Lasix] 40 mg PO BIDLX 10/01/16 [History Confirmed 12/14/17] Hydroxychloroquine [Plaquenil] 200 mg PO BIDCM 10/01/16 [History Confirmed 12/14/17] Linagliptin [Tradjenta] 5 mg PO DAILY 10/01/16 [History Confirmed 12/14/17] Montelukast [Singulair] 10 mg PO QHS 10/01/16 [History Confirmed 12/14/17] Acyclovir [Zovirax] 400 mg PO TID PRN 10/26/16 [History Confirmed 12/14/17] Ergocalciferol [Vitamin D] 1.25 cap PO QMONTH 01/21/17 [History Confirmed 12/14/17] Amlactin Ultra Body Cream 1 applic TOPICAL DAILY PRN 02/17/17 [History Confirmed 12/14/17] Cevimeline HCl [Evoxac] 30 mg PO TID 02/17/17 [History Confirmed 12/14/17] Dextroamphetamine/Amphetamine [Adderall Xr 10 mg Capsule] 15 mg PO BID 07/22/17 [History Confirmed 12/14/17] Estradiol [Estrace] 1 mg PO QHS 09/27/17 [History Confirmed 12/14/17] Metoprolol Succinate [Toprol Xl] 50 mg PO BID 09/27/17 [History Confirmed 12/14/17] Pregabalin [Lyrica] 50 mg PO BID 09/27/17 [History Confirmed 12/14/17] predniSONE tablet 10 mg PO DAILYCM 09/27/17 [History Confirmed 12/14/17] omeprazole 40 mg capsule,delayed release 40 mg PO QDAY 12/08/17 [History Confirmed 12/14/17] paroxetine 10 mg tablet 10 mg PO QDAY 12/08/17 [History Confirmed 12/14/17] Calcium Acetate [Phoslo Gel Cap] 2,001 mg PO TIDCM 12/09/17 [History Confirmed 12/14/17] Lactobacillus Acidophilus [Acidophilus] 1 ea PO TID 12/09/17 [History Confirmed 12/14/17] Sevelamer Carbonate 2,400 mg PO TID 12/09/17 [History Confirmed 12/14/17] Triphrocaps 1 mg PO DAILY 12/09/17 [History Confirmed 12/14/17] Vancomcyin 125 MG/ 5 ML Susp [Vancomycin 125mg/5mL Susp] 125 mg PO Q6 12/09/17 [History Confirmed 12/14/17] Hydrocodone Bitart/Apap 5-325 [[place] 5MG-325MG] 1 tab PO Q6H PRN PRN 3 Days #10 tab 12/10/17 [Rx Confirmed 12/14/17] PFSH Medical History Dehydration with hyponatremia (Acute) Chronic anemia (Chronic) Hyperkalemia (Acute) Acute renal failure (Acute) Chronic kidney disease (Chronic) Hypertension (Chronic) Narcolepsy (Chronic) Lupus nephritis (Chronic) Degenerative disc disease, cervical (Chronic) Cervical spondylosis (Chronic) Unresponsiveness (Acute) Colitis (Acute) Leukopenia (Acute) Diabetes mellitus, type II (Chronic) SLE (systemic lupus erythematosus) (Chronic) Status post left heart catheterization (Acute) Surgical History History of esophagogastroduodenoscopy (EGD) (Acute) Presence of surgically created arteriovenous shunt for hemodialysis (Acute) S/P colonoscopy (Acute) S/P lymph node biopsy (Acute) S/P nasal polypectomy (Acute) Status post carpal tunnel release (Acute) Status post total hip replacement, bilateral (Acute) Family History Mother Diabetes Hypertension Kidney disease Father Heart disease Hypertension Kidney disease Social History Smoking Status: Never smoker HPI HPI HPI: PAVITHRA PAINTER, is a 47 F I am following for chronic renal failure. Dr. Valverde performed a right tunneled chest catheters and transposition left upper arm basilic vein to brachial artery arteriovenous fistula creation on 12/10/2017. Patient tolerated the procedure well. She notes incisional discomfort and left hand discomfort. She denies numbness/tingling of the fingers. She notes swelling of the hand. Patient notes her chest catheters have been working well. Exam Chest Other: Right tunneled chest catheters- catheters in place. Extrem Other: Left upper extremity- incision c/d/i. Moderate amount of ecchymosis. No erythema or infection noted. Swelling of the left hand noted. Good pulse, bruit and thrill. Good radial pulse. Assessment AND Plan Problems 1. Chronic kidney disease N18.4 Plan - Follow-up in 3 weeks - Recommend hand exercises Coding Level of Care Code Global Post Op Diagnoses Chronic kidney disease N18.4 Chronic kidney disease stage: stage 4 (severe) 12/14/17 1640 <Electronically signed by Anabela Lewis PA-C> Date Anabela Lewis PA-C Cosigner Signature: Date (if applicable) CC: DISCHARGE INSTRUCTION Observed: 12/13/2017 Status: F Source: [place] 6:48 AM [facility] Medical Records Department [address] [place] [address] Instructions for Home/Discharge Instructions 12/10/17 1245 MR#: [id number] Acct: [id number] Name: PAVITHRA PAINTER Rep #: [id number] : 1970 47 From: Rigo Valverde MD PCP: Vu GARCIA,Mitchell Chi Status: DEP [facility] Discharge Diet: Renal Diet Discharge Activity: May Not Drive, May Not Shower Lifting Restrictions: 5 pounds Keep extremity elevated above heart level: - - Keep arm elevated above the heart level for 3 days. Call your doctor if your incision/area has: Continuous Slow Oozing, Sudden Increased Bleeding - apply pressure and call your doctor., Increased Pain/ Swelling, Increased Redness, Foul Smelling Discharge Call your doctor if you observe: Fever of 101 or Higher Suture Line Care: Avoid Pulling/Pushing, Avoid Pinching/Bending Additional Dressing/Incision Instructions:: Please elevate your left arm for comfort. Exercise the left hand with a stress ball to mature the fistula. Keep the right chest catheters clean and dry Allergies/Adverse Reactions: Allergies NEGRO Inhibitors Allergy (Verified 12/09/17 09:23) Angioedema lisinopril Allergy (Verified 12/09/17 09:23) Angioedema Sulfa (Sulfonamide Antibiotics) Allergy (Verified 12/09/17 09:23) Rash sulfamethoxazole [From Bactrim] Allergy (Verified 12/09/17 09:23) Rash trimethoprim [From Bactrim] Allergy (Verified 12/09/17 09:23) Rash Medications to take at Discharge Atorvastatin Calcium [Lipitor] 20 mg PO QHS 10/01/16 Duloxetine Hcl [Cymbalta] 120 mg PO DAILY 10/01/16 Furosemide [Lasix] 40 mg PO BIDLX 10/01/16 Hydroxychloroquine [Plaquenil] 200 mg PO BIDCM 10/01/16 Linagliptin [Tradjenta] 5 mg PO DAILY 10/01/16 Montelukast [Singulair] 10 mg PO QHS 10/01/16 Acyclovir [Zovirax] 400 mg PO TID PRN 10/26/16 Ergocalciferol [Vitamin D] 1.25 cap PO QMONTH 01/21/17 Amlactin Ultra Body Cream 1 applic TOPICAL DAILY PRN 02/17/17 Cevimeline HCl [Evoxac] 30 mg PO TID 02/17/17 Dextroamphetamine/Amphetamine [Adderall Xr 10 mg Capsule] 15 mg PO BID 07/22/17 Estradiol [Estrace] 1 mg PO QHS 09/27/17 Metoprolol Succinate [Toprol Xl] 50 mg PO BID 09/27/17 Pregabalin [Lyrica] 50 mg PO BID 09/27/17 predniSONE tablet 10 mg PO DAILYCM 09/27/17 omeprazole 40 mg capsule,delayed release 40 mg PO QDAY 12/08/17 paroxetine 10 mg tablet 10 mg PO QDAY 12/08/17 Calcium Acetate [Phoslo Gel Cap] 2,001 mg PO TIDCM 12/09/17 Lactobacillus Acidophilus [Acidophilus] 1 each PO TID 12/09/17 Sevelamer Carbonate 2,400 mg PO TID 12/09/17 Triphrocaps 1 mg PO DAILY 12/09/17 Vancomcyin 125 MG/ 5 ML Susp [Vancomycin 125mg/5mL Susp] 125 mg PO Q6 12/09/17 Hydrocodone Bitart/Apap 5-325 [[place] 5MG-325MG] 1 tablet PO Q6H PRN PRN 3 Days #10 tablet 12/10/17 The following prescriptions were given: Hydrocodone Bitart/Apap 5-325 [[place] 5MG-325MG] 1 tablet PO Q6H PRN PRN 3 Days #10 tablet PRN Reason: Pain Primary Care Physician: Mitchell Womack Chi, MD [Primary Care Provider] - Please Follow Up With: Rigo Valverde MD - [phone] When: Call to make an appointment for surgical follow up in 10 days 12/13/17 0648 <Electronically signed by Rigo Valverde MD> Date Rigo Valverde MD CC: Mitchell Womack MD OPERATIVE REPORT Observed: 12/10/2017 Status: F Source: [place] 4:23 PM [facility] Medical Records Department [address] [place] [address] Operative Report 12/10/17 1614 MR#: [id number] Acct: [id number] Name: PAVITHRA PAINTER Rep #: [id number] : 1970 47 From: Rigo Valverde MD PCP: Mitchell Womack MD, Chi Status: [facility] Location: [place] [address] Problem List (1) Problem with dialysis access Status: Acute Qualifiers: Encounter type: initial encounter Qualified Code(s): T82.898A - Other specified complication of vascular prosthetic devices, implants and grafts, initial encounter Report of Operation Date of Procedure: 12/10/17 Pre-Operative Diagnosis: Difficulties with dialysis access/thrombosed left forearm radial to antecubital PTFE AV graft Post-Operative Diagnosis: Same Surgery/Procedure Performed:: Right external jugular tunneled 19 cm pre-curved palindrome dialysis catheter placement. Transposition left upper arm basilic vein to brachial artery arteriovenous fistula creation Description of Surgical Findings:: Timeout and informed consent was obtained. 47-year-old female was taken to the operating. She underwent monitored anesthesia care local anesthetic. Ancef 2 g given intravenous preoperatively. The right neck and chest were sterilely prepped and draped. Ultrasound was used to identify the right internal jugular vein which was extraordinarily diminutive in size. The preoperative duplex imaging suggested patency however in actuality this vein was very diminutive. I did attempt access with using 0.5% lidocaine and then a micropuncture needle. I could not get the micropuncture wire to advance. Further inspection of the neck revealed that the external jugular vein appear to be patent. I then utilized 0.5% a cane as a local. I used ultrasound to guide a micropuncture needle into the vein. Micropuncture wire. Micropuncture sheath. I then instilled local down upon the chest wall. I tunneled the 19 cm pre-curved palindrome catheter from the chest to the neck. I placed a J-wire through the micropuncture sheath. Serial dilatation was performed. Sheath dilator was inserted. The dilator and wire removed. The catheter was advanced through the sheath. The sheath was split. The catheter was in good position based upon fluoroscopy. The neck site was closed with interrupted 4-0 Vicryl subdermal stitch. The catheter was secured skin with interrupted 3-0 nylon. A silver impregnated dressing was applied followed by Telfa. Telfa OpSite was placed in the neck. Attention was now drawn to the left extremity which was sterilely prepped and draped. It is of note that throughout both procedures a total 24 cc of 0.5% lidocaine and 25 cc of 1% lidocaine mixed 50-50 with a 0.25% Marcaine was used as local anesthetic. Ultrasound was used to identify the left upper extremity basilic vein. Then a longitudinal incision was made in the left medial upper arm tedious sharp and blunt dissection was used to dissect free the basilic vein. Side branches were secured with 4-0 Vicryl ligatures and hemoclips. The vein was completely freed it was irrigated was noted to be of nice diameter. It was measured the length and a curvilinear pattern was selected. The brachial artery was then dissected free. A tunneler was placed the vein was ligated distally with hemoclips at a spatulation point. The vein was then placed beneath the tunnel taking great care to assure no curvature. It irrigated was nicely patent. The patient received 7000 units of heparin. Peripheral vascular clamps were placed on the brachial artery and 11 blade was used to make an arteriotomy extended with Ahmadi scissors. A end-to-side anastomosis was created with a running 7-0 Prolene. At the completion there is good flow. Inspection of the hand however was of concern and that was markedly diminished Doppler signal of the radial artery. The fistula appeared to have an extraordinarily high flow. So then I used a centimeter by 1 cm wide piece of bovine pericardium graft. I shortened the width to about 6 mm. I used that as a cuff at the proximal portion of the fistula. Using interrupted sutures of 6-0 Prolene I then serially snugged the cuff until I was able to get a Doppler signal back at the wrist. The hand appeared to have now adequate capillary refill. The fascia also appeared to have good flow remaining. The wound was closed with interrupted 3-0 Vicryl subdermal stitches and a running septic or 4 Monocryl. Steri-Strips Telfa soft roll Negro wrap applied. Sponge instrument and needle counts were reported to the surgeon to be correct. Blood loss for both procedures was 300 cc. She tolerated procedure well was taken to recovery in satisfactory condition no apparent complication stat portable chest x-ray is pending. Rigo Valverde M.D., F.A.C.S. Type of Anesthesia:: Local MAC Anesthesiologist: Alexys Ramirez 12/10/17 1623 <Electronically signed by Rigo Valverde MD> Date Rigo Valverde MD CC: Rigo Valverde MD; Mitchell Womack MD Signed CHEST 1 VIEW Observed: 12/10/2017 Status: F Source: [place] (PORTABLE) 4:13 PM [facility] Imaging Services [address] [place] [address] Chest 1 View (Portable) MR#: [id number] Acct: [id number] Name: PAVITHRA PAINTER Rep #: [id number] : 1970 F 47 From: Jayda Arreguin MD PCP: Vu GARCIA,Mitchell Yadav Status: REG [facility] Study: Chest 1 View (Portable) Date of Exam: 12/10/17 Exam# [id number] Ordering Dr: Rigo Valverde MD STUDY: X-RAY CHEST REASON FOR EXAM: Female, 47 years old. Insertion of hemodialysis catheter. TECHNIQUE: Single AP portable view of the chest. COMPARISON: Prior chest radiograph of September 27, 2017 FINDINGS: Right hemodialysis catheter ends in the proximal superior vena cava. A left subclavian central line ends in the distal superior vena cava. The lungs are clear and expanded. Negative for pneumothorax. Negative for pleural effusion. Normal size heart. Normal mediastinum and malorie. Normal visualized pulmonary arteries. Normal visualized aortic arch and descending thoracic aorta. Normal visualized thoracic spine. Normal visualized ribs, clavicles, and shoulders. There is no demonstrated abnormality of the visualized soft tissue structures of the upper abdomen. RAD/Chest 1 View (Portable) IMPRESSION: Right hemodialysis catheter ends in the proximal superior vena cava without complication of line placement. Left subclavian venous catheter ends in the distal superior vena cava. No acute cardiopulmonary findings. Electronically Signed: Jayda Arreguin MD at 16:53 EDT , Service support , CC: Rigo Valverde MD; Mitchell Womack MD Electric Tripper Machine Operator: Signed CROSSMATCH, FREEZE Collected: 12/10/2017 Status: F Source: [place] 12:00 PM HOSPITALS REPOSITORY TYPE CODE TESTS RESULT OUT OF REFERENCE UNITS RANGE LAB HLFXM(LOINC ) CROSSMATCH, COMMENT FREEZE Result Comment: SEE SEPARATE REPORT. Performed By: #### HLFXM #### [facility] [address] [place] [address] ,URINE Collected: 12/10/2017 Status: F Source: [place] 10:55 AM [facility] TYPE CODE TESTS RESULT OUT OF REFERENCE UNITS RANGE LAB L400.8000 Negative Normal HCGUQUAL Negative Result Comment: Very dilute urine specimens, as indicated by a low specific gravity, may not contain procurement representative levels of hCG. If is still suspected, a first morning urine specimen should be collected 48 hours later and tested. Performed By: #### L400.7600 #### Laboratory [address] [place], [address] BEDSIDE GLUCOSE Collected: 12/10/2017 Status: F Source: [place] 9:49 AM [facility] TYPE CODE TESTS RESULT OUT OF RANGE REFERENCE UNITS LAB L501.080 70-110 mg/dL Normal BEDSIDE GLU 104 Result Comment: MANAGEMENT OF PATIENT CARE PER NURSING PROTOCOL Performed By: #### L501.080 #### Laboratory Point of Care [address] [place], [place] [address] VENOUS DUPLEX UPPER Observed: 12/09/2017 Status: F Source: [place] EXTREMITY 3:24 PM [facility] Cardiovascular Services [address] [facility] [place] [address] Saphenous Vein Mapping, Unilat 12/09/17 1448 MR#: [id number] Acct: [id number] Name: PAVITHRA PAINTER Rep #: [id number] : 1970 47 From: Rigo Valverde MD Attending Dr: Rigo Valverde MD Status: REG CLI Ordering Dr: Rigo Valverde MD Date: 12/09/17 Location: [facility] Sex: F A Admitted: Reason For Study: Complications of access device Left Arm Left Cephalic Vein at the wrist measures .27 x .30 cm. Left Cephalic Vein in the forearm measures .29 x .32 cm. Left Cephalic Vein below antecub measures .36 x .36 cm. Cephalic vein occluded in upper arm. Basilic vein at origin measures .43 x .43 cm. Basilic vein at bicep measures .47 x .45 cm. Basilic vein above antecub measures .40 x .37 cm. Brachial artery - .52 x .53 cm with a velocity of 68.4 cm/s Radial artery - .27 x .27 cm with a velocity of 53.4 cm/s. < Interpretation Summary Occluded left forearm AV graft Occluded left upper arm cephalic vein Compressible left forearm cephalic vein Patent and good diameter left upper arm basilic vein. Ordering Physician: Rigo Valverde Referring Physician: Rigo Valverde Performed By: Abigail Ventura RVT 12/09/17 1524 Date Rigo Valverde MD CC: Rigo Valverde MD; Mitchell Womack MD Date Dictated: 12/09/17 1448 Date Transcribed: 12/09/17 1524 Electric Tripper Machine Operator: Signed VENOUS DUPLEX [facility] Observed: 12/09/2017 Status: F Source: [place] EXTREMITY 3:22 PM [facility] Cardiovascular Services [address] [place] [address] Venous Duplex US, Unilateral 12/09/17 1437 MR#: [id number] Acct: [id number] Name: PAVITHRA PAINTER Rep #: [id number] : 1970 47 From: Rigo Valverde MD Attending Dr: Rigo Valverde MD Status: REG CLI Ordering Dr: Rigo Valverde MD Date: 12/09/17 Location: [facility] Sex: F A Admitted: Version 2 Reason For Study: Assess IJV for possible dialysis catheter placement Right Proximal IJV demonstrates normal color flow and doppler signal Prox IJV - .34 x .35 cm Mid IJV - .60 x .69 cm Dist IJV - .86 x .91 cm Subclavian demonstrates normal color flow and doppler signal and and measures 1.3 x 1.3 cm. < Interpretation Summary Patent and compressible right internal jugular vein. Normal flow right subclavian vein Occluded left forearm AV graft Patent left forearm cephalic vein--occluded in the upper arm Patent and generous diameter left upper arm basilic vein.. Ordering Physician: Rigo Valverde Referring Physician: Rigo Valverde Performed By: Abigail Ventura RVT 12/09/17 1522 Date Rigo Valverde MD CC: Rigo Valverde MD; Mitchell Womack MD Date Dictated: 12/09/17 1437 Date Transcribed: 12/09/17 1519 Electric Tripper Machine Operator: Signed SURGERY VISIT REPORT Observed: 12/08/2017 Status: F Source: [place] 3:23 PM [facility] [place] [facility] [address] [place] [address] OFFICE VISIT Date of Service: 12/08/17 MR#: [id number] Acct: [id number] Name: PAVITHRA PAINTER Rep #: [id number] : 1970 Provider: Anabela Lewis PA-C Age/Sex: 47/F Location: [facility] Status: Signed Intake Intake Visit Reasons: occluded fistula Allergies NEGRO Inhibitors Allergy (Verified 12/08/17 13:32) Angioedema lisinopril Allergy (Verified 12/08/17 13:32) Angioedema Sulfa (Sulfonamide Antibiotics) Allergy (Verified 12/08/17 13:32) Rash sulfamethoxazole [From Bactrim] Allergy (Verified 12/08/17 13:32) Rash trimethoprim [From Bactrim] Allergy (Verified 12/08/17 13:32) Rash Medications Atorvastatin Calcium [Lipitor] 20 mg PO QHS 10/01/16 [History Confirmed 12/08/17] Duloxetine Hcl [Cymbalta] 120 mg PO DAILY 10/01/16 [History Confirmed 12/08/17] Furosemide [Lasix] 40 mg PO BIDLX 10/01/16 [History Confirmed 12/08/17] Hydroxychloroquine [Plaquenil] 200 mg PO BIDCM 10/01/16 [History Confirmed 12/08/17] Linagliptin [Tradjenta] 5 mg PO DAILY 10/01/16 [History Confirmed 12/08/17] Montelukast [Singulair] 10 mg PO QHS 10/01/16 [History Confirmed 12/08/17] Acyclovir [Zovirax] 400 mg PO TID PRN 10/26/16 [History Confirmed 12/08/17] Ergocalciferol [Vitamin D] 1.25 mg PO QMONTH 01/21/17 [History Confirmed 12/08/17] Amlactin Ultra Body Cream 1 applic TOPICAL DAILY PRN 02/17/17 [History Confirmed 12/08/17] Cevimeline HCl [Evoxac] 30 mg PO TID 02/17/17 [History Confirmed 12/08/17] Dextroamphetamine/Amphetamine [Adderall Xr 10 mg Capsule] 15 mg PO BID 07/22/17 [History Confirmed 12/08/17] Calcium Acetate [Phoslo Gel Cap] 2,001 mg PO TIDCM 09/27/17 [History Confirmed 12/08/17] Estradiol [Estrace] 1 mg PO QHS 09/27/17 [History Confirmed 12/08/17] Metoprolol Succinate [Toprol Xl] 50 mg PO BID 09/27/17 [History Confirmed 12/08/17] Pregabalin [Lyrica] 50 mg PO BID 09/27/17 [History Confirmed 12/08/17] Triphrocaps 1 mg PO DAILY 09/27/17 [History Confirmed 12/08/17] predniSONE tablet 10 mg PO DAILYCM 09/27/17 [History Confirmed 12/08/17] Lactobacillus Acidophilus [Acidophilus] 1 tab PO TID #0 tab 10/03/17 [Rx Confirmed 12/08/17] Sevelamer Carbonate [Renvela] 2,400 mg PO TID #270 tab 10/03/17 [Rx Confirmed 12/08/17] Vancomcyin 125 MG/ 5 ML Susp [Vancomycin 125mg/5mL Susp] 125 mg PO Q6 PRN po.syringe 12/08/17 [History] omeprazole 40 mg capsule,delayed release 40 mg PO QDAY 12/08/17 [History Confirmed 12/08/17] paroxetine 10 mg tablet 10 mg PO QDAY 12/08/17 [History Confirmed 12/08/17] PFSH Medical History Dehydration with hyponatremia (Acute) Chronic anemia (Chronic) Hyperkalemia (Acute) Acute renal failure (Acute) Chronic kidney disease (Chronic) Hypertension (Chronic) Narcolepsy (Chronic) Lupus nephritis (Chronic) Degenerative disc disease, cervical (Chronic) Cervical spondylosis (Chronic) Unresponsiveness (Acute) Colitis (Acute) Leukopenia (Acute) Diabetes mellitus, type II (Chronic) SLE (systemic lupus erythematosus) (Chronic) Status post left heart catheterization (Acute) Surgical History History of esophagogastroduodenoscopy (EGD) (Acute) Presence of surgically created arteriovenous shunt for hemodialysis (Acute) S/P colonoscopy (Acute) S/P lymph node biopsy (Acute) S/P nasal polypectomy (Acute) Status post carpal tunnel release (Acute) Status post total hip replacement, bilateral (Acute) Family History Mother Diabetes Hypertension Kidney disease Father Heart disease Hypertension Kidney disease Social History Smoking Status: Never smoker HPI HPI HPI: PAVITHRA PAINTER, is a 47 F I am following for chronic renal failure. Patient has a left forearm radial to antecubital PTFE AV graft which was created 11/03/16. Patient had a fistulogram on 02/18/17. Findings included proximal inflow stenosis, multiple attempts not able to be treated. Patient was recommended to return to the office for consideration of a fistula revision or additional fistulogram accessing the fistula via antegrade access to the left radial artery. Patient did not follow-up. Patient is currently on dialysis M, W, F at [facility] dialysis center. 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 Patient has been dialyzing well. Today, dialysis center called noting the patient's fistula was occluded. Patient was able to dialyze well on Wednesday without any concerns. She denies dialysis alerting her with any difficulties or decreased rates. She was unable to be dialyzed today and was sent to our office. Patient notes she was hospitalized in September with pneumonia for 1 week. She denies previous M.I., stroke, and blood clots. She declines previous complications with anesthesia. Patient is requesting to have a fistulogram first prior to chest catheters and a new fistula. Patient does have a left chest port-a-cath placed for poor venous access. ROS General General: Yes weight change, appetite and fatigue; no breast cancer, colon cancer or weakness HEENT HEENT: Yes eye surgery; no difficulty swallowing, eye injury, swollen glands or hoarseness Endo Endocrine: Yes diabetes mellitus; no thyroid disease, thyroid cancer, Hair loss, heat intolerance or cold intolerance Skin Skin: No rash or changing moles Breast Breast: No left breast lump, right breast lump, nipple discharge, breast pain, abnormal mammogram, abnormal US or breast enlargement Musc Musculoskeletal: Yes back problems and arthritis; no rheumatoid arthritis, gout or joint pain Cardio Cardiovascular: Yes high blood pressure; no murmur, pacemaker, heart disease, atrial fibrillation, heart attack, heart stent, palpitations, shortness of breat with exertion or chest pain Psych Psychiatric: Yes anxiety and depression; no hearing voices Resp Respiratory: No shortness of breath, No sleep apnea, No cough, No COPD, No asthma, No emphysema, No wheezing Gastro Gastrointestinal: Yes acid reflux, Yes constipation, No abdominal pain, No nausea or vomiting, No diarrhea, No blood in stool, No hemorrhoids, No ulcers, No gallbladder problem, No black,tarry stools Johny Hematologic: Yes anemia, No blood thinners, No blood disorders, No bleeding, No blood clots Neuro Neurologic: No system reviewed and no additional complaints, except as docu, No as per HPI, No abnormal walking, No abnormal hearing, No abnormal movements, No abnormal speech, No behavioral changes, No burning sensations, No confusion, No seizure-like activity, No unsteadiness, No dizziness, No localized weakness, No frequent falls, No headache(s), No lack of coordination, No loss of vision, No memory loss, No numbness, No other visual disturbances, No radiating pain, No restless legs, No sensory deficit, No fainting, No tingling, No tremor(s), No weakness, No other Exam Const General: cooperative, healthy appearing, comfortable, no acute distress HENNC Head: normal to inspection Eyes General: appearance normal, both eyes and all related structures Neck Neck mass: No Chest Breast Palpation: No nipple discharge Other: Left port-a-cath placement Resp Effort AND Inspection: normal respiratory effort Auscultation: clear to auscultation bilaterally Cardio Rate: regular rate Rhythm: regular rhythm Heart Sounds: no murmurs GI Inspection: normal to inspection Palpation: soft Auscultation: normal bowel sounds Skin General: no rashes or lesions noted Neuro General: no focal motor deficits Extrem Other: Left forearm fistula- incision c/d/i. 3+ Radial pulse. No bruit or thrill noted. Psych Appearance: grossly normal Affect: normal affect Assessment AND Plan Problems 1. Chronic renal failure, stage 5 N18.5 2. Problem with dialysis access, initial encounter T82.613G Plan I have discussed this patient with Dr. Valverde. Our office attempted to schedule patient for an urgent fistulogram tomorrow and do to scheduling accommodations it was unable to be scheduled. Dialysis center was contacted who called [facility] who were not able to accommodate for a fistulogram tomorrow. This was discussed with the patient. Patient would like to proceed with the chest catheter placement. Vein mapping was also discussed with the patient to reassess her vasculature for new future fistula creation. Order was placed. Dr. Valverde will plan to perform a right chest tunneled dialysis catheter placement under MAC. Procedure details, risks and benefits have been explained to the patient. Patient has had a previous dialysis catheter placement in the right chest in 2016. Patient will need to obtain lab work the morning of the procedure. Coding Level of Care Code Off vis,est,level 4 Diagnoses Chronic renal failure, stage 5 N18.5 Problem with dialysis access, initial encounter T82.908G Encounter type: initial encounter 12/08/17 1523 <Electronically signed by Anabela Lewis PA-C> Date Anabela Lewis PA-C Cosigner Signature: Date (if applicable) CC: Arline Ambriz DO; Mitchell Womack MD CBC W/DIFF, AUTOMATED Collected: 11/30/2017 Status: F Source: [place] 2:50 PM [facility] [place] TYPE CODE TESTS RESULT OUT OF RANGE REFERENCE UNITS LAB L100.1000 4.4-11.0 K/mm3 Normal WBC 9.4 LAB L100.1200 4.2-5.4 M/mm3 Low RBC 3.86 LAB L100.1300 12.0-15.0 g/dl Normal HGB 12.0 LAB L100.1400 37-47 % Normal HCT 38.6 LAB L100.1500 81-99 fL High MCV 100.0 LAB L100.1600 27.0-32.0 pg Normal MCH 31.1 LAB L100.1700 32-36 g/gl Low MCHC 31.1 LAB L100.1810 11.6-14.6 % High RDW CV 15.8 LAB L100.1820 35.1-43.9 fl High RDW SD 55.5 LAB L100.1900 150-450 K/mm3 Normal PLT 185 LAB L100.2000 6.2-12.0 fl Normal MPV 10.3 LAB L100.2100 47-70 % High NEUT% 85.4 LAB L100.2200 19-41 % Low LY% 8.1 LAB L100.2300 0-10 % Normal MONO% 5.3 LAB L100.2400 0-5 % Normal EO% 0.4 LAB L100.2500 0-1 % Normal BASO% 0.1 LAB L100.2550 0.0-0.9 % Normal IM GRAN % 0.700 Result Comment: IG% - Immature Granulocytes (promyelocytes, myelocytes and metamyelocytes) > 1% indicates that a LEFT SHIFT is Present. LAB L100.2620 2.0-7.7 X10 3/uL High Absolute Neut 8.0 LAB L100.2720 0.83-4.51 X10 3/ul Low Absolute Lymph 0.76 Performed By: #### L100.0100 #### Laboratory [address] [place], [address] COMPREHENSIVE METABOLIC Collected: 11/30/2017 Status: F [facility] [place] [facility] TYPE CODE TESTS RESULT OUT OF RANGE REFERENCE UNITS LAB L501.0100 74-106 mg/dL High GLU 170 Result Comment: Fasting Glucose result greater than or equal to 126 mg/dL suggests DIABETES MELLITUS per A.D.A. criteria. Please note revised GLUCOSE reference range effective 2017. LAB L501.1000 7-18 mg/dL High BUN 67 LAB L501.1100 0.55-1.02 mg/dL High CREAT,SERUM 6.57 Result Comment: The validity of the calculated GFR AND GFRAA in patients over 70 years has not been determined. Clinical correlation is essential. LAB L501.1110 >60 mL/min Low EST GFR 7 Result Comment: Non- GFR Calc LAB L501.1115 >60 mL/min Low EST GFR - AA 9 Result Comment: GFR Calc LAB L501.1300 10-20 RATIO Normal BUN/CRE 10.2 LAB L501.1500 6.4-8.2 g/dL T Normal PROT 7.7 LAB L501.1800 3.2-5.0 g/dL Low ALB 3.1 LAB L501.1950 2.2-4.2 g/dL High GLOB 4.6 LAB L501.2000 0.9-2.4 RATIO Low A/G 0.7 LAB L501.2200 8.5-10.1 mg/dL CA Normal 8.7 LAB L501.4100 15-37 U/L Normal AST 28 LAB L501.4305 45-117 U/L Normal ALK P 78 LAB L501.4405 13-56 U/L Normal ALT 16 Result Comment: Please note revised ALT reference range effective 2017. LAB L501.4600 0.20-1.00 mg/dL Normal T BILI 0.60 LAB L501.5300 136-145 mmol/L Low NA 133 LAB L501.5600 3.5-5.1 mmol/L Normal K 4.3 LAB L501.5900 98-107 mmol/L Low CL 95 LAB L501.6100 21.0-32.0 mmol/L Normal CO2 27.0 LAB L501.6200 5-15 Normal GAP 11 Performed By: #### L500.4050, L501.9520 #### [place], [address] THYROID STIM HORMONE Collected: 11/30/2017 Status: F Source: [place] (TSH) 2:50 PM [facility] [place] [facility] TYPE CODE TESTS RESULT OUT OF RANGE REFERENCE UNITS LAB L501.9520 0.358-3.74 uIU/mL Normal TSH 1.19 Performed By: #### L500.4050, L501.9520 #### Laboratory [address] [place], [place], [id number] D-DIMER QUANTITATIVE Collected: 11/19/2017 Status: F Source: [place] (DVT/PE) 10:11 AM [facility] [place] [facility] TYPE CODE TESTS RESULT OUT OF RANGE REFERENCE UNITS LAB L300.8000 0.27-0.49 FEU/ug/m High alert D-DIMER 1.95 QUANT Result Comment: CRITICAL VALUE VERIFIED. CALLED TO MADELINE OLIVER 11/19/17 1145 CCrytzer. RESULTS READ BACK BY MADELINE OLIVER . D-Dimer ELEVATED (>0.49): Additional studies and clinical assessments are indicated to conclude diagnosis of: Deep Vein Thrombosis (DVT) or Pulmonary Embolism (PE) Performed By: #### L300.8000 #### Laboratory [address] [place], [place], [id number] COMPLEMENT C3 Collected: 11/19/2017 Status: F Source: [place] 10:11 AM [facility] [place] [facility] TYPE CODE TESTS RESULT OUT OF RANGE REFERENCE UNITS LAB L3100.5700 82-167 mg/dL Normal COMP C3 99 Performed By: #### L3100.5700, L3100.5800, L3200.1300 #### [facility] (refer to report for specific site) refer to report for address and phone number COMPLEMENT C4 Collected: 11/19/2017 Status: F Source: [place] 10:11 AM [facility] [place] [facility] TYPE CODE TESTS RESULT OUT OF RANGE REFERENCE UNITS LAB L3100.5800 14-44 mg/dL Normal COMP C4 24 Performed By: #### L3100.5700, L3100.5800, L3200.1300 #### [facility] (refer to report for specific site) refer to report for address and phone number IMMUNOGLOBULIN G Collected: 11/19/2017 Status: F Source: [place] 10:11 AM [facility] [place] [facility] TYPE CODE TESTS RESULT OUT OF RANGE REFERENCE UNITS LAB L3200.8067 420-0758 mg/dL Normal IMMUNO G 1173 Result Comment: Performed at: - [facility] [id number] [place], [place] [id number] Trade Mark Examiner: Yannick Means PhD, Phone: [phone] Performed By: #### L3100.5700, L3100.5800, L3200.1300 #### [facility] (refer to report for specific site) refer to report for address and phone number CROSSMATCH, FREEZE Collected: 11/10/2017 Status: F Source: [place] 10:43 AM [facility] REPOS[facility] TYPE CODE TESTS RESULT OUT OF REFERENCE UNITS RANGE LAB HLFXM(LOINC ) CROSSMATCH, COMMENT FREEZE Result Comment: SEE SEPARATE REPORT. Performed By: #### HLFXM #### [facility] [address] [place] [address] HEPATITIS B SURFACE Collected: 11/06/2017 Status: F Source: [place] AG 1:52 PM [facility] [place] [facility] Order Comment: CALL RESULTS TO [phone] TYPE CODE TESTS RESULT OUT OF RANGE REFERENCE UNITS LAB L3100.0400 Negative Normal HB Negative SURF AG Result Comment: Performed at: [place] [facility] [address] [id number] Trade Mark Examiner: Yannick Means PhD, Phone: [phone] RESULTS CALLED TO SUBHASH HANKS 11/08/[address] [place] [address]. REPORT READ BACK BY SUBHASH. RESULTS FAXED TO DR AMBRIZ 11/08/[address] [place] [address]. Performed By: #### L3100.0390 #### [facility] (refer to report for specific site) refer to report for address and phone number OPERATIVE REPORT Observed: 10/18/2017 Status: F Source: [place] 12:42 PM [facility] [place] [facility] Medical Records Department [address] [place] [address] Operative Report 10/18/17 1237 MR#: [id number] Acct: [id number] Name: PAVITHRA PAINTER Rep #: [id number] : 1970 47 From: Diogo Gaviria MD PCP: Vu GARCIA,Mitchell Yadav Status: DEP [facility] Y Location: [facility] Problem List (1) Cervical spondylosis Status: Chronic (2) Degenerative disc disease, cervical Status: Chronic Report of Operation Date of Procedure: 10/18/17 Pre-Operative Diagnosis: Cervical spondylosis, cervical degenerative disc disease, cervical facet arthropathy Post-Operative Diagnosis: Cervical spondylosis, cervical degenerative disc disease, cervical facet arthropathy Surgery/Procedure Performed:: Left-sided cervical facet steroid injection C4, C5, C6, C7 Description of Surgical Findings:: PROCEDURE: Left-sided cervical facet steroid injection C4, C5, C6, C7 PREOPERATIVE DIAGNOSES: Cervical spondylosis, cervical degenerative disc disease, and cervical facet arthropathy POSTOPERATIVE DIAGNOSES: Cervical spondylosis, cervical degenerative disc disease, and cervical facet arthropathy ANESTHESIA: MAC COMPLICATIONS: None BLOOD LOSS: Minimal PROCEDURE IN DETAIL: History and physical today was reviewed. Risks and benefits of the procedure were explained. The patient understood, agreed to our procedure, and informed consent was obtained. IV inserted per routine protocol. The patient was taken to the operating room, placed in a prone position with a pillow positioned underneath the chest. The neck area was prepped and draped in a sterile fashion using iodine x3. Under fluoroscopy guidance, on AP view, C4 through C7 vertebral bodies were visualized. . Under direct visualization with fluoroscopy at approximately 15-degree angle, starting on the left C4, ending on the left C7, passing through the C5-C6 using a 25-gauge 3-1/2 inch spinal needle, the needle was passed through the skin. The tip of the needle was maneuvered and directed towards the apophyseal junction of each corresponding vertebra. Once the tip of the needle was at the vicinity of the medial branch and in contact with the bone, the needle was redirected more lateral towards the medial branch. Once in contact with the medial branch, the stylet of each needle was then removed. After negative aspiration of blood with CSF and confirmation of AP as well as oblique view, a total of 3 mL of preservative-free 0.25% Marcaine with 80 mg Depo-Medrol was injected in divided doses between those 4 levels. The needles were then removed intact. The patient experienced no signs or symptoms of intrathecal, intravascular injection. The patient experienced no paraesthesia. The procedure was completed without any apparent difficulty, any complication. The patient appeared to tolerate well. ASSESSMENT AND PLAN: This is a 47-year-old female with cervical spondylosis, cervical degenerative disc disease, and cervical facet arthropathy, status post left- sided cervical facet steroid injection C4 through C7. The patient will continue her current medications. The patient will follow up in approximately 2 weeks fo reevaluation. 10/18/17 1242 <Electronically signed by Diogo Gaviria MD> Date Diogo Gaviria MD CC: Diogo Gaviria; Mitchell Womack MD Signed BEDSIDE GLUCOSE Collected: 10/18/2017 Status: F Source: [place] 8:20 AM [facility] [place] [facility] TYPE CODE TESTS RESULT OUT OF RANGE REFERENCE UNITS LAB L501.080 70-110 mg/dL Normal BEDSIDE GLU 110 Result Comment: MANAGEMENT OF PATIENT CARE PER NURSING PROTOCOL Performed By: #### L501.080 #### Laboratory Point of Care [address] [place] [address] ,URINE Collected: 10/18/2017 Status: F Source: [place] 8:00 AM [facility] [place] [facility] TYPE CODE TESTS RESULT OUT OF REFERENCE UNITS RANGE LAB L400.8000 Negative Normal HCGUQUAL Negative Result Comment: Very dilute urine specimens, as indicated by a low specific gravity, may not contain procurement representative levels of hCG. If is still suspected, a first morning urine specimen should be collected 48 hours later and tested. Performed By: #### L400.7600 #### Laboratory [address] [facility] [place], [address] CERV SPINE 2 OR 3 Observed: 10/18/2017 Status: F Source: [place] VIEWS 3:27 AM [facility] [place] [facility] Imaging Services [address] [place] [address] Cerv Spine 2 or 3 Views MR#: [id number] Acct: [id number] Name: PAVITHRA PAINTER Rep #: [id number] : 1970 F 47 From: Jonathan Garcia MD PCP: Vu GARCIA,Mitchell Yadav Status: [facility] Study: Cerv Spine 2 or 3 Views Date of Exam: 10/18/17 Exam# [id number] Ordering Dr: Diogo Gaviria MD PROCEDURE: Cervical facet joint block. DATE OF EXAMINATION: October 18, 2017. INDICATION: Female, 47 years old. FLUOROSCOPY TIME (if supplied): (0:09) minutes/seconds Intraoperative fluoroscopic imaging provided for left C4-C7 facet joint block. RAD/Cerv Spine 2 or 3 Views IMPRESSION: Intraoperative fluoroscopic imaging provided for left C4-C7 facet joint block. Electronically Signed: Jonathan Garcia MD at 13:02 EST Tel [phone], Service support , CC: Diogo Gaviria; Mitchell Woamck MD Electric Tripper Machine Operator: Signed Observed: 10/11/2017 Status: F Source: [place] CDIFF (MOLECULAR) 2:00 PM [facility] [place] [facility] Cdiff-Molecular Normal Reference Range = Negative C. Diff DNA Negative- No toxigenic C. Diff DNA Detected NAAT METHOD Testing was performed using nucleic acid amplification Performed By: #### M100.6796 #### Laboratory [address] [place], [address] HLA CLASS II AB Collected: 10/06/2017 Status: F Source: [facility]IVERS[facility] SCREEN,FC 10:25 AM [facility] REPOSIT[facility] TYPE CODE TESTS RESULT OUT OF REFERENCE UNITS RANGE LAB HLA2S(LOINC ) HLA CLASS SEE COMMENT II AB SCREEN,FC Result Comment: HLA CLASS II AB SCREEN,FLOW CYTOMETRY SEE SEPARATE REPORT. Performed By: #### HLA2S #### [facility] [address] [place] [address] DISCHARGE SUMMARY Observed: 10/03/2017 Status: F Source: [place] 3:21 PM [facility] [place] [facility] Medical Records Department [address] [place] [address] Discharge Summary 10/03/17 1511 MR#: [id number] Acct: [id number] Name: PAINTERPAVITHRA Marcos Rep #: [id number] : 1970 47 From: José Miguel Fierro MD PCP: Vu GARCIA,Mitchell Yadav Status: ADM IN Y Location: [place] [address] Discharge Date and Diagnosis - Problem List Patient Problems: Active and Suspected Problems Unresponsiveness (Acute) Date of Admission: 09/27/17 Date of Discharge: 10/03/17 - Primary Discharge Diagnosis Active and Suspected Problems #1 Acute encephalopathy-with unconscious and unresponsiveness likely metabolic/infectious in etiology due to uremia #2 uremia with 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 difficile colitis with history of recurrent C. difficile: #3 leukocytosis with suspicion of left lower lobe community acquired pneumonia/aspiration pneumonia- #4 acute hypoxic respiratory failure secondary to acute encephalopathy- Loose bowel movement with diarrhea with suspicion of C. difficile: Large right frontal scalp hematoma: Cervical CT showed no acute fracture or malalignment. No ulcer - Secondary Discharge Diagnosis Chronic Problems SLE (systemic lupus erythematosus) (Chronic) Lupus nephritis (Chronic) Status post kidney and liver biopsy (fatty liver) Narcolepsy (Chronic) Hypertension (Chronic) Chronic kidney disease (Chronic) Chronic anemia (Chronic) Diabetes mellitus, type II (Chronic) Hospital Course and Treatment Operations: None Summary of Care Provided: [] The patient is a 47 year old F who was seen in the emergency room at after being brought in due to unresponsiveness. Patient had similar episode in 2017. Patient is an end-stage renal disease patient and undergoes chronic dialysis. On evaluation in the emergency room, patient had snoring respirations, patient had a large hematoma over the right frontal forehead area, she was felt not to be able to control her secretions and she was intubated for airway protection by the emergency room physician. There was no CSF otorrhea/rhinorrhea noticed. No hemotympanum. Labs were obtained, she had an elevated creatinine at 7.99, BUN was 146, potassium was 6.9, white blood cell count was elevated at 21.4, UA was unremarkable, tox screen was positive for opiates, lactic acid was normal, and chest x-ray showed a focal infiltrate in the posterior medial segment of the left lower lobe. CT scan of the brain was unremarkable for acute process. Patient was admitted to ICU for acute encephalopathy- etiology unclear but in part probably due to uremia, hyperkalemia, and leukocytosis and later on extubated and was transferred to PCU. Patient was seen and examined today General: Alert, Oriented x3, Cooperative HEENT: Atraumatic, PERRLA, EOMI, Normocephalic Neck: Supple, No JVD, Negative Carotid Bruits Lungs: Air entry diminished in bilateral lung bases, Normal air movement Cardiovascular: Regular rate, Regular Rhythm, Normal S1, Normal S2, No murmurs Abdomen: Bowel Sounds Present, Soft, Non Tender, nondistended. Soft bowel movement but no severe diarrhea. Not dehydrated Extremities: No edema, Capillary Refill Less than 3 Seconds, - Left upper extremity fistula present. Skin: No rashes, No breakdown Musculoskeletal: No Tenderness to Palpation of Joints or Extremities Neurological: Cranial nerves II-XII grossly intact Psych/Mental Status: Normal Affect, Appropriate #1 Acute encephalopathy with unconscious and unresponsiveness- likely metabolic/infectious in etiology due to uremia ; although exact etiology unclear: Patient was admitted to ICU and transferred to PCU on 10/01/2012. Patient was seen by torpedo specialist Dr. Goode. Patient is extubated on 09/30/2017. Currently she answers all the questions appropriately. Encephalopathy resolved. Patient had hemodialysis on Wednesday and Wednesday. Chest x-ray does not show fluid congestion. EEG was done and reported as severe generalized background slowing along with intermittent triphasic waves This may be seen in generalized severe cerebral dysfunction like metabolic/toxic encephalopathy.There is no epileptiform discharges or electrographic seizures noted during the record. On baseline prednisone 10 mg daily. 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 Ambriz. Was given Seroquel last night. On hemodialysis. Possible relapse or acute C. difficile colitis with history of recurrent C. difficile: : Patient has for C. difficile episode in March 2016 and then fall 2016 and during this hospital. Yesterday, patient has loose bowel movement with diarrhea. Currently heart rate is in 90s but no fever. Denies abdominal pain/distention. Abdomen is nontender. Patient persistent to go home after long hospital stay. Stool for occult blood and positive along with C. difficile. Stool for lactoferrin negative. Patient just finished tapering dose of vancomycin oral for 4-6 week about a month ago. Started again on vancomycin and Flagyl. She is being discharged on vancomycin and oral as she is persistent to go home. On lactobacillus. Patient might need fecal transplant. Follow-up with ID Dr. Llamas in 1 week. #3 leukocytosis with suspicion of left lower lobe community acquired pneumonia-was on cefepime chest x-ray shows focal infiltrate on the left lower lobe. Patient is on ceftriaxone. And is discharged on cefadroxil, 100 mg every 48 hour with supplemental after dialysis total duration of 1 week. #4 acute hypoxic respiratory failure secondary to acute encephalopathy- currently pulse ox is 99% on room air Large right frontal scalp hematoma: Cervical CT showed no acute fracture or malalignment. Scalp hematoma getting better. No open ulcer. Other comorbidities include hypertension, depression, chronic pain syndrome and hyperkalemia secondary to end-stage renal disease. Home medication reconciliation done. Antihypertensive medications on hold. Multiple comorbidities complicates the present care. DVT prophylaxis: Heparin 5000 subcutaneous twice daily and bilateral SCDs. Discharge medication reconciliation done. Discharge instructions given and discussed with the patient.. Prescription sent to the patient's pharmacy. Discharge Activity: May not drive while taking narcotic pain medications. Call your doctor if you observe: Fever of 101 or Higher, Inability to have a bowel movement, Using more than one pad per hour Home Medications: Medications to take at Discharge Atorvastatin Calcium [Lipitor] 20 mg PO QHS 10/01/16 Duloxetine Hcl [Cymbalta] 120 mg PO DAILY 10/01/16 Furosemide [Lasix] 40 mg PO BIDLX 10/01/16 Hydroxychloroquine [Plaquenil] 200 mg PO BIDCM 10/01/16 Linagliptin [Tradjenta] 5 mg PO DAILY 10/01/16 Montelukast [Singulair] 10 mg PO QHS 10/01/16 Acyclovir [Zovirax] 400 mg PO TID PRN 10/26/16 Ergocalciferol [Vitamin D] 1.25 mg PO QMONTH 01/21/17 Amlactin Ultra Body Cream 1 applic TOPICAL DAILY PRN 02/17/17 Cevimeline HCl [Evoxac] 30 mg PO TID 02/17/17 Oxycodone HCl [Roxicodone] 5 mg PO BID PRN PRN 02/17/17 Cetirizine HCl 5 mg PO DAILY 05/25/17 Dextroamphetamine/Amphetamine [Adderall Xr 10 mg Capsule] 15 mg PO BID 07/22/17 Baclofen 10 mg PO TID 09/27/17 Calcium Acetate [Phoslo Gel Cap] 2,001 mg PO TIDCM 09/27/17 Estradiol [Estrace] 1 mg PO QHS 09/27/17 Fluconazole [Diflucan] 200 mg PO BID 09/27/17 Metoprolol Succinate [Toprol Xl] 50 mg PO BID 09/27/17 PredniSONE 10 mg PO DAILYCM 09/27/17 Pregabalin [Lyrica] 50 mg PO BID 09/27/17 Triphrocaps 1 mg PO DAILY 09/27/17 Cefadroxil [Duracef] 500 mg PO Q48H #3 cap 10/03/17 Lactobacillus Acidophilus [Acidophilus] 1 tablet PO TID #0 tablet 10/03/17 Metronidazole [Flagyl] 500 mg PO TID #15 tab 10/03/17 NIFEdipine [Procardia XL] 90 mg PO DAILY #30 tab 10/03/17 Sevelamer Carbonate [Renvela] 2,400 mg PO TID #270 tab 10/03/17 Vancomcyin 125 MG/ 5 ML Susp [Vancomycin 125mg/5mL Susp] 125 mg PO Q6 #30 po.syringe 10/03/17 Following Prescrptions Were Given to Patient: Cefadroxil [Duracef] 500 mg PO Q48H #3 cap NIFEdipine [Procardia XL] 90 mg PO DAILY #30 tab Vancomcyin 125 MG/ 5 ML Susp [Vancomycin 125mg/5mL Susp] 125 mg PO Q6 #30 po.syringe Metronidazole [Flagyl] 500 mg PO TID #15 tab Sevelamer Carbonate [Renvela] 2,400 mg PO TID #270 tab Primary Care Physician: Mitchell Womack Chi, MD [Primary Care Provider] - Please follow up with your Primary Care Physician in: in 1 week for recurrent C diff Please Follow Up With: Drew Goode DO When: for Pneumonia in 2 week Please Follow Up With: Rigo Llamas MD When: in 1 week for recurrent C diff Meaningful Use Info Meaningful Use Diagnoses (Choose all that apply): None applicable Code Visit Inpatient E AND M: 90940 SNF Disch >30 Min 10/03/17 1521 <Electronically signed by José Miguel Fierro MD> Date José Miguel Fierro MD Cosigner Signature (if applicable): Date CC: José Miguel Fierro MD; Mitchell Womack MD Signed DISCHARGE INSTRUCTION Observed: 10/03/2017 Status: F Source: [place] 3:21 PM [facility] [place] Medical Records Department [address] [place] [address] Instructions for Home/Discharge Instructions 10/03/17 1323 MR#: [id number] Acct: [id number] Name: PAVITHRA PAINTER Rep #: [id number] : 1970 47 From: José Miguel Fierro MD PCP: Vu GARCIA,Mitchell Yadav Status: ADM IN - Discharge Diagnoses Current Active Problems: Current Active and Chronic Problems Unresponsiveness (Acute) You will use the following diet at home:: Calorie/Carbohydrate Controlled (specify 1200, 1400, etc) - 1800 ADA diet, Cardiac Your food should be the consistency of: Regular Discharge Activity: May not drive while taking narcotic pain medications. Call your doctor if you observe: Fever of 101 or Higher, Inability to have a bowel movement, Using more than one pad per hour Additional Instructions: pt was instructed to go to ER when she has fever, abdominal pain, nausea, vomiting or diarrhea due to C. difficile. Allergies/Adverse Reactions: Allergies NEGRO Inhibitors Allergy (Verified 09/27/17 11:53) Angioedema lisinopril Allergy (Verified 09/27/17 11:53) Angioedema Sulfa (Sulfonamide Antibiotics) Allergy (Verified 09/27/17 11:53) Rash sulfamethoxazole [From Bactrim] Allergy (Verified 09/27/17 11:53) Rash trimethoprim [From Bactrim] Allergy (Verified 09/27/17 11:53) Rash Medications to take at Discharge Atorvastatin Calcium [Lipitor] 20 mg PO QHS 10/01/16 Duloxetine Hcl [Cymbalta] 120 mg PO DAILY 10/01/16 Furosemide [Lasix] 40 mg PO BIDLX 10/01/16 Hydroxychloroquine [Plaquenil] 200 mg PO BIDCM 10/01/16 Linagliptin [Tradjenta] 5 mg PO DAILY 10/01/16 Montelukast [Singulair] 10 mg PO QHS 10/01/16 Acyclovir [Zovirax] 400 mg PO TID PRN 10/26/16 Ergocalciferol [Vitamin D] 1.25 mg PO QMONTH 01/21/17 Amlactin Ultra Body Cream 1 applic TOPICAL DAILY PRN 02/17/17 Cevimeline HCl [Evoxac] 30 mg PO TID 02/17/17 Oxycodone HCl [Roxicodone] 5 mg PO BID PRN PRN 02/17/17 Cetirizine HCl 5 mg PO DAILY 05/25/17 Dextroamphetamine/Amphetamine [Adderall Xr 10 mg Capsule] 15 mg PO BID 07/22/17 Baclofen 10 mg PO TID 09/27/17 Calcium Acetate [Phoslo Gel Cap] 2,001 mg PO TIDCM 09/27/17 Estradiol [Estrace] 1 mg PO QHS 09/27/17 Fluconazole [Diflucan] 200 mg PO BID 09/27/17 Metoprolol Succinate [Toprol Xl] 50 mg PO BID 09/27/17 PredniSONE 10 mg PO DAILYCM 09/27/17 Pregabalin [Lyrica] 50 mg PO BID 09/27/17 Triphrocaps 1 mg PO DAILY 09/27/17 Lactobacillus Acidophilus [Acidophilus] 1 tablet PO TID #0 tablet 10/03/17 NIFEdipine [Procardia XL] 90 mg PO DAILY #30 tab 10/03/17 Sevelamer Carbonate [Renvela] 2,400 mg PO TID #270 tab 10/03/17 Vancomcyin 125 MG/ 5 ML Susp [Vancomycin 125mg/5mL Susp] 125 mg PO Q6 #30 po.syringe 10/03/17 The following prescriptions were given: NIFEdipine [Procardia XL] 90 mg PO DAILY #30 tab Vancomcyin 125 MG/ 5 ML Susp [Vancomycin 125mg/5mL Susp] 125 mg PO Q6 #30 po.syringe Sevelamer Carbonate [Renvela] 2,400 mg PO TID #270 tab Primary Care Physician: Mitchell Womack Chi, MD [Primary Care Provider] - Please follow up with your Primary Care Physician in: in 1 week for recurrent C diff Please Follow Up With: Drew Goode DO When: for Pneumonia in 2 week Please Follow Up With: Rigo Llamas MD When: in 1 week for recurrent C diff 10/03/17 1521 <Electronically signed by José Miguel Fierro MD> Date José Miguel Fierro MD CC: Arline Ambriz DO; Drew Goode D.O.; Mitchell Womack MD BEDSIDE GLUCOSE Collected: 10/03/2017 Status: F Source: [place]AMELA 11:49 AM [facility] [place] [facility] TYPE CODE TESTS RESULT OUT OF REFERENCE UNITS RANGE LAB L501.080 70-110 mg/dL High BEDSIDE GLU 130 Result Comment: MANAGEMENT OF PATIENT CARE PER NURSING PROTOCOL Performed By: #### L501.080 #### Laboratory Point of Care [address] [place] [address] BEDSIDE GLUCOSE Collected: 10/03/2017 Status: F Source: [place]AMEL[place] 6:39 AM [facility] [place] [facility] TYPE CODE TESTS RESULT OUT OF RANGE REFERENCE UNITS LAB L501.080 70-110 mg/dL Normal BEDSIDE GLU 100 Result Comment: MANAGEMENT OF PATIENT CARE PER NURSING PROTOCOL Performed By: #### L501.080 #### Laboratory Point of Care [address] [place] [address] RENAL PROFILE Collected: 10/03/2017 Status: F Source: [place]AMELA 5:20 AM [facility] [place] [facility] TYPE CODE TESTS RESULT OUT OF RANGE REFERENCE UNITS LAB L501.0100 70-110 mg/dL High GLU 117 Result Comment: Fasting Glucose result from 110 to <126 mg/dL suggests IMPAIRED HOMEOSTASIS per A.D.A. criteria. LAB L501.1000 7-18 mg/dL High alert BUN 103 Result Comment: Critical Result(s) Called at: 05:47:00 10/03/2017 by: Violette Mendez to [facility] LAB L501.1100 0.55-1.02 mg/dL CREAT,SERUM High alert 8.97 Result Comment: Critical Result(s) Called at: 05:47:11 10/03/2017 by: Violette Ozuna The validity of the calculated GFR AND GFRAA in patients over 70 years has not been determined. Clinical correlation is essential. LAB L501.1110 >60 mL/min Low EST GFR 5 Result Comment: Non- GFR Calc LAB L501.1115 >60 mL/min Low EST GFR - AA 6 Result Comment: GFR Calc LAB L501.1255 ml/min Normal Estimated CRCL 6.84 LAB L501.1300 10-20 RATIO Normal BUN/CRE 11.5 LAB L501.1800 3.4-5.0 g/dL Low ALB 2.2 Result Comment: Please note revised Albumin AND Globulin reference range effective 2017. LAB L501.2200 8.5-10.1 mg/dL Low CA 8.1 LAB L501.2300 2.5-4.9 mg/dL High PHOS 8.5 LAB L501.5300 136-145 mmol/L Low NA 133 LAB L501.5600 3.5-5.1 mmol/L Normal K 4.7 LAB L501.5900 98-107 mmol/L Low CL 94 LAB L501.6100 21.0-32.0 mmol/L Normal CO2 23.0 Performed By: #### L500.3600 #### Laboratory [address] [place], [place], [address] BEDSIDE GLUCOSE Collected: 10/02/2017 Status: F Source: [place] 9:11 PM [facility] [place] [facility] TYPE CODE TESTS RESULT OUT OF REFERENCE UNITS RANGE LAB L501.080 70-110 mg/dL High BEDSIDE GLU 164 Result Comment: MANAGEMENT OF PATIENT CARE PER NURSING PROTOCOL Performed By: #### L501.080 #### Laboratory Point of Care [address] [facility] [place] [address] BEDSIDE GLUCOSE Collected: 10/02/2017 Status: F Source: [place] 5:04 PM [facility] [place] [facility] TYPE CODE TESTS RESULT OUT OF REFERENCE UNITS RANGE LAB L501.080 70-110 mg/dL High BEDSIDE GLU 264 Result Comment: MANAGEMENT OF PATIENT CARE PER NURSING PROTOCOL Performed By: #### L501.080 #### Laboratory Point of Care [address] [place] [address] STOOL Observed: 10/02/2017 Status: F Source: PAMELA LACTOFERRIN/WBC 4:43 PM [facility] [place] [facility] Order Date: 10/02/17 Has pt arrived? Y Stool Lacto/WBC Normal Reference Range = Negative Fecal WBC Lactoferrin Negative: No Fecal WBC Lactoferrin present Performed By: #### M100.0605 #### Laboratory [address] [place] [address]. [place], [address] Observed: 10/02/2017 Status: F Source: PAMELA STOOL OCCULT BLOOD 4:43 PM [facility] [place] [facility] Order Date: 10/02/17 Has pt arrived? Y STOB iFOB Occult Blood Positive ORGANISM 1: OCCULT BLOOD POSITIVE Performed By: #### M100.7900 #### Laboratory [address] [place] [address]. [place], [address] Observed: 10/02/2017 Status: F Source: PAMELA CDIFF (MOLECULAR) 4:43 PM [facility] [place] [facility] Order Date: 10/02/17 Has pt arrived? Y Cdiff-Molecular Normal Reference Range = Negative RESULTS CALLED TO ROSHAN TROY 10/02/171909 Cyn Iverson. REPORT READ BACK BY SAME. Copy of report sent to Infection Control Printer [id number] 10/02/171910 JENNIFER. C. Diff DNA Positive-Toxigenic C. Difficile DNA Detected NAAT METHOD Testing was performed using nucleic acid amplification ORGANISM 1: Toxigenic C. difficile DNA Performed By: #### M100.6796 #### Laboratory [address] [place] [address]. [place], [address] BEDSIDE GLUCOSE Collected: 10/02/2017 Status: F Source: PAMELA 12:07 PM [facility] [place] [facility] TYPE CODE TESTS RESULT OUT OF REFERENCE UNITS RANGE LAB L501.080 70-110 mg/dL High BEDSIDE GLU 194 Result Comment: MANAGEMENT OF PATIENT CARE PER NURSING PROTOCOL Performed By: #### L501.080 #### Laboratory Point of Care [address] [place] [address]. [place] [address] BEDSIDE GLUCOSE Collected: 10/02/2017 Status: F Source: PAMELA 6:50 AM [facility] [place] [facility] TYPE CODE TESTS RESULT OUT OF RANGE REFERENCE UNITS LAB L501.080 70-110 mg/dL Normal BEDSIDE GLU 98 Result Comment: MANAGEMENT OF PATIENT CARE PER NURSING PROTOCOL Performed By: #### L501.080 #### Laboratory Point of Care [address] [place] [address] BEDSIDE GLUCOSE Collected: 10/01/2017 Status: F Source: [place]AMELA 9:51 PM [facility] [place] [facility] TYPE CODE TESTS RESULT OUT OF REFERENCE UNITS RANGE LAB L501.080 70-110 mg/dL High BEDSIDE GLU 148 Result Comment: MANAGEMENT OF PATIENT CARE PER NURSING PROTOCOL Performed By: #### L501.080 #### Laboratory Point of Care [address] [place] [address] BEDSIDE GLUCOSE Collected: 10/01/2017 Status: F Source: [place] 5:13 PM [facility] [place] [facility] TYPE CODE TESTS RESULT OUT OF REFERENCE UNITS RANGE LAB L501.080 70-110 mg/dL High BEDSIDE GLU 237 Result Comment: MANAGEMENT OF PATIENT CARE PER NURSING PROTOCOL Performed By: #### L501.080 #### Laboratory Point of Care [address] [place] [address] BEDSIDE GLUCOSE Collected: 10/01/2017 Status: F Source: [place] 12:05 PM [facility] [place] [facility] TYPE CODE TESTS RESULT OUT OF REFERENCE UNITS RANGE LAB L501.080 70-110 mg/dL High BEDSIDE GLU 157 Result Comment: MANAGEMENT OF PATIENT CARE PER NURSING PROTOCOL Performed By: #### L501.080 #### Laboratory Point of Care [address] [place] [address] BEDSIDE GLUCOSE Collected: 10/01/2017 Status: F Source: [place] 8:30 AM [facility] [place] [facility] TYPE CODE TESTS RESULT OUT OF REFERENCE UNITS RANGE LAB L501.080 70-110 mg/dL High BEDSIDE GLU 114 Result Comment: MANAGEMENT OF PATIENT CARE PER NURSING PROTOCOL Performed By: #### L501.080 #### Laboratory Point of Care [address] [place], [place] [address] CBC-COMPLETE BLOOD CNT Collected: 10/01/2017 Status: F Source: [place] NO DIFF 4:05 AM [facility] [place] [facility] TYPE CODE TESTS RESULT OUT OF RANGE REFERENCE UNITS LAB L100.1000 4.4-11.0 K/mm3 High WBC 13.8 LAB L100.1200 4.2-5.4 M/mm3 Low RBC 3.26 LAB L100.1300 12.0-15.0 g/dl Low HGB 10.1 LAB L100.1400 37-47 % Low HCT 31.0 LAB L100.1500 81-99 fL Normal MCV 95.1 LAB L100.1600 27.0-32.0 pg Normal MCH 31.0 LAB L100.1700 32-36 g/gl Normal MCHC 32.6 LAB L100.1810 11.6-14.6 % High RDW CV 16.1 LAB L100.1820 35.1-43.9 fl High RDW SD 52.9 LAB L100.1900 150-450 K/mm3 Normal PLT 188 LAB L100.2000 6.2-12.0 fl Normal MPV 10.0 Performed By: #### L100.0500 #### Laboratory [address] [place], [place], [address] RENAL PROFILE Collected: 10/01/2017 Status: F Source: [place]EL[place] 4:05 AM [facility] [place] [facility] TYPE CODE TESTS RESULT OUT OF RANGE REFERENCE UNITS LAB L501.0100 70-110 mg/dL High GLU 118 Result Comment: Fasting Glucose result from 110 to <126 mg/dL suggests IMPAIRED HOMEOSTASIS per A.D.A. criteria. LAB L501.1000 7-18 mg/dL High BUN 94 LAB L501.1100 0.55-1.02 mg/dL High alert CREAT,SERUM 7.91 Result Comment: Critical Result(s) Called at: 05:05:51 10/01/2017 by: WINSTON MARTIN RN ICU The validity of the calculated GFR AND GFRAA in patients over 70 years has not been determined. Clinical correlation is essential. LAB L501.1110 >60 mL/min Low EST GFR 6 Result Comment: Non- GFR Calc LAB L501.1115 >60 mL/min Low EST GFR - AA 7 Result Comment: GFR Calc LAB L501.1255 ml/min Normal Estimated CRCL 7.76 LAB L501.1300 10-20 RATIO Normal BUN/CRE 11.9 LAB L501.1800 3.4-5.0 g/dL Low ALB 2.2 Result Comment: Please note revised Albumin AND Globulin reference range effective 2017. LAB L501.2200 8.5-10.1 mg/dL Low CA 7.9 LAB L501.2300 2.5-4.9 mg/dL High alert PHOS 9.6 Result Comment: Critical Result(s) Called at: 05:05:51 10/01/2017 by: WINSTON MARTIN RN ICU LAB L501.5300 136-145 mmol/L Low NA 135 LAB L501.5600 3.5-5.1 mmol/L Normal K 4.1 LAB L501.5900 98-107 mmol/L Low CL 95 LAB L501.6100 21.0-32.0 mmol/L Normal CO2 25.0 Performed By: #### L500.3600 #### Laboratory [address] [place], [address] BEDSIDE GLUCOSE Collected: 09/30/2017 Status: F Source: [place] 10:09 PM [facility] [place] [facility] TYPE CODE TESTS RESULT OUT OF REFERENCE UNITS RANGE LAB L501.080 70-110 mg/dL High BEDSIDE GLU 124 Result Comment: MANAGEMENT OF PATIENT CARE PER NURSING PROTOCOL Performed By: #### L501.080 #### Laboratory Point of Care [address] [place] [address] BEDSIDE GLUCOSE Collected: 09/30/2017 Status: F Source: [place] 4:09 PM [facility] [place] [facility] TYPE CODE TESTS RESULT OUT OF REFERENCE UNITS RANGE LAB L501.080 70-110 mg/dL High BEDSIDE GLU 259 Result Comment: MANAGEMENT OF PATIENT CARE PER NURSING PROTOCOL Performed By: #### L501.080 #### Laboratory Point of Care [address] [place] [address] 12 LEAD ELECTROCARDIOGRAM Observed: 09/30/2017 Status: F Source: [place] 11:40 AM [facility] [place] [facility] Cardiovascular Services [address] [place] [address] 12 Lead EKG 09/27/17 0927 MR#: [id number] Acct: [id number] Name: PAVITHRA PAINTER Rep #: [id number] : 1970 47 From: Cesar Roberts MD Attending [facility] Status: ADM IN Ordering Dr: Andrea Rey MD Date: 09/27/17 Location: ICU Sex: F A Admitted: 09/27/17 Test Reason : UNRESPONSIVE Blood Pressure : / mmHG Vent. Rate : 079 BPM Atrial Rate : 079 BPM P-R Int : 164 ms QRS Dur : 088 ms QT Int : 420 ms P-R-T Axes : 011 039 089 degrees QTc Int : 481 ms Normal sinus rhythm Nonspecific ST abnormality Prolonged QT Abnormal ECG Confirmed by CESAR ROBERTS ([id number]), editor map CESAR SIMEON ([id number]) on 09/30/2017 11:40:03 AM Referred By: ANUJA Confirmed By:CESAR ROBERTS 09/30/17 1140 Date Cesar Roberts MD CC: Mitchell Womack MD Signed BEDSIDE GLUCOSE Collected: 09/30/2017 Status: F Source: [place] 11:30 AM [facility] [place] [facility] TYPE CODE TESTS RESULT OUT OF REFERENCE UNITS RANGE LAB L501.080 70-110 mg/dL High BEDSIDE GLU 244 Result Comment: MANAGEMENT OF PATIENT CARE PER NURSING PROTOCOL Performed By: #### L501.080 #### Laboratory Point of Care [address] [place] [address] BEDSIDE GLUCOSE Collected: 09/30/2017 Status: F Source: [place] 5:13 AM [facility] [place] [facility] TYPE CODE TESTS RESULT OUT OF REFERENCE UNITS RANGE LAB L501.080 70-110 mg/dL High BEDSIDE GLU 213 Result Comment: MANAGEMENT OF PATIENT CARE PER NURSING PROTOCOL Performed By: #### L501.080 #### Laboratory Point of Care [address] [place], [place] [address] CBC W/DIFF, AUTOMATED Collected: 09/30/2017 Status: F Source: [place] 3:50 AM [facility] [place] [facility] TYPE CODE TESTS RESULT OUT OF RANGE REFERENCE UNITS LAB L100.1000 4.4-11.0 K/mm3 High WBC 13.6 LAB L100.1200 4.2-5.4 M/mm3 Low RBC 3.14 LAB L100.1300 12.0-15.0 g/dl Low HGB 9.9 LAB L100.1400 37-47 % Low HCT 30.2 LAB L100.1500 81-99 fL Normal MCV 96.2 LAB L100.1600 27.0-32.0 pg Normal MCH 31.5 LAB L100.1700 32-36 g/gl Normal MCHC 32.8 LAB L100.1810 11.6-14.6 % High RDW CV 16.2 LAB L100.1820 35.1-43.9 fl High RDW SD 52.3 LAB L100.1900 150-450 K/mm3 Normal PLT 164 LAB L100.2000 6.2-12.0 fl Normal MPV 9.7 LAB L100.2100 47-70 % High NEUT% 85.6 LAB L100.2200 19-41 % Low LY% 4.3 LAB L100.2300 0-10 % Normal MONO% 8.8 LAB L100.2400 0-5 % Normal EO% 0.0 LAB L100.2500 0-1 % Normal BASO% 0.1 LAB L100.2550 0.0-0.9 % High IM GRAN % 1.200 Result Comment: IG% - Immature Granulocytes (promyelocytes, myelocytes and metamyelocytes) > 1% indicates that a LEFT SHIFT is Present. LAB L100.2620 2.0-7.7 X10 3/uL High Absolute Neut 11.6 LAB L100.2720 0.83-4.51 X10 3/ul Low Absolute Lymph 0.59 Performed By: #### L100.0100, L500.2500 #### Laboratory [address] [place], [address] BASIC METABOLIC Collected: 09/30/2017 Status: F Source: [place] PROFILE (BMP) 3:50 AM [facility] [place] [facility] TYPE CODE TESTS RESULT OUT OF RANGE REFERENCE UNITS LAB L501.0100 70-110 mg/dL High GLU 246 Result Comment: Glucose result greater than or equal to 200 mg/dL suggests DIABETES MELLITUS per A.D.A. criteria. LAB L501.1000 7-18 mg/dL High BUN 66 LAB L501.1100 0.55-1.02 mg/dL High CREAT,SERUM 5.75 Result Comment: The validity of the calculated GFR AND GFRAA in patients over 70 years has not been determined. Clinical correlation is essential. LAB L501.1110 >60 mL/min Low EST GFR 9 Result Comment: Non- GFR Calc LAB L501.1115 >60 mL/min Low EST GFR - AA 10 Result Comment: GFR Calc LAB L501.1255 ml/min Normal Estimated CRCL 10.67 LAB L501.1300 10-20 RATIO Normal BUN/CRE 11.5 LAB L501.2200 8.5-10 mg/dL Low .1 CA 8.0 LAB L501.5300 136-14 mmol/L Low 5 NA 134 LAB L501.5600 3.5-5. mmol/L Normal 1 K 4.2 LAB L501.5900 98-107 mmol/L Low CL 95 LAB L501.6100 21.0-3 mmol/L Normal 2.0 CO2 27.0 LAB L501.6200 5-15 Normal GAP 12 Performed By: #### L100.0100, L500.2500 #### Laboratory [address] [place], [address] BEDSIDE GLUCOSE Collected: 09/29/2017 Status: F Source: [place] 11:00 PM [facility] [place] CODE TESTS RESULT OUT OF REFERENCE UNITS RANGE LAB L501.080 70-110 mg/dL High BEDSIDE GLU 190 Result Comment: MANAGEMENT OF PATIENT CARE PER NURSING PROTOCOL Performed By: #### L501.080 #### Laboratory Point of Care [address] [facility] [place] [address] CONSULTATION Observed: 09/29/2017 Status: F Source: [place] 5:42 PM [facility] [place] [facility] Medical Records Department [address] [place] [address] Consultation 09/28/17 0944 MR#: [id number] Acct: [id number] Name: PAVITHRA PAINTER Rep #: [id number] : 1970 47 From: Arline Ambriz DO PCP: Vu GARCIA,Mitchell Yadav Status: ADM IN Y Location: ICU ICU08-1 Consultation - Renal 09/28/17 PCP/ Referring MD: Requesting physician: Wesly Sorensen Primary care physician: Mitchell Womack Reason for Consultation:: ESRD HD MWF renal mgmt - History of Present Illness History of Present Illness: The patient is a 47 year old F well known to me with 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 She was reported to be snorous, hx fall with large hematoma over the right frontal forehead area. CT head without acute findings. Currently remains on vent, sedate. Her potassium was elevated at 6.9 wutn BUN 146 Cr 7.99 on admit in ER. Potassium improved with dialysis arranged last night. WBC was elevated at 21.4. She was recently treated for sinus infection and was taking old Rx of nystatin for thrush. She has been taking prednisone for lupus managed by rheumatology in [facility]. She has a history of Cdiff colitis. No recent history of diarrhea but had soft stools and abdominal cramps intermittently at home past several weeks. Chest x-ray showed a focal infiltrate in the posterior medial segment of the left lower lobe. Patient was admitted to ICU for acute encephalopathy. Neurology was consulted and EEG performed. - Allergies Allergies: Allergies NEGRO Inhibitors Allergy (Verified 09/27/17 11:53) Angioedema lisinopril Allergy (Verified 09/27/17 11:53) Angioedema Sulfa (Sulfonamide Antibiotics) Allergy (Verified 09/27/17 11:53) Rash sulfamethoxazole [From Bactrim] Allergy (Verified 09/27/17 11:53) Rash trimethoprim [From Bactrim] Allergy (Verified 09/27/17 11:53) Rash - Current Medications Current Medications: Current Medications Chlorhexidine Gluconate () 15 ml PO BID ENRIQUE Last Admin: 09/27/17 23:25 Dose: 15 ml Chlorhexidine Gluconate () 1 each TOPICAL DAILY ENRIQUE Last Admin: 09/28/17 01:51 Dose: 1 each Heparin Sodium (Beef Lung) (Heparin 500 Unit/5 Ml (100/Ml)) 500 unit IV UD PRN PRN Reason: HEPARIN FLUSH Heparin Sodium (Porcine) () 5,000 units SC BID ENRIQUE Last Admin: 09/27/17 21:57 Dose: 5,000 units Hydrocortisone Sodium Succinate (Solu-Cortef) 100 mg IV Q8 ENRIQUE Hydrocortisone Sodium Succinate (Solu-Cortef) 100 mg IV X1 ONE Stop: 09/28/17 09:19 Propofol (Diprivan) 1,000 mg in 100 mls @ 2.067 mls/hr CONT INF .Q12H ENRIQUE; 5 MCG/KG/MIN PRN Reason: Protocol Last Admin: 09/28/17 05:05 Dose: 2.067 mls/hr Cefepime HCl 0.5 gm/ Sodium (Chloride) 100 mls @ 200 mls/hr IV Q24H ENRIQUE Fentanyl () 100 mls @ 5 mls/hr IV .Q20H ENRIQUE Last Admin: 09/28/17 08:44 Dose: 5 mls/hr Dexmedetomidine HCl 400 mcg/ (Sodium Chloride) 100 mls @ 8.3 mls/hr IV .Q12H3M ENRIQUE PRN Reason: 0.5 MCG/KG/HR Last Admin: 09/28/17 07:40 Dose: 8.3 mls/hr Pantoprazole Sodium 40 mg/ (Sodium Chloride) 110 mls @ 330 mls/hr IV Q12 ENRIQUE Quetiapine Fumarate (Seroquel) 50 mg GT BID ERNIQUE Sodium Chloride () 10 ml IV UD PRN PRN Reason: VAD FLUSH Last Admin: 09/27/17 22:07 Dose: 10 ml Venlafaxine HCl (Effexor) 75 mg GT TID ENRIQUE - Past Medical History Past Medical History (Chronic Problems): Chronic Problems SLE (systemic lupus erythematosus) (Chronic) Lupus nephritis (Chronic) Status post kidney and liver biopsy (fatty liver) Narcolepsy (Chronic) Hypertension (Chronic) Chronic kidney disease (Chronic) Chronic anemia (Chronic) Diabetes mellitus, type II (Chronic) - Past Surgical History Surgical History: - - AVF left forearm - Social History Marital Status: Single Smoking Status: Never smoker - Family History Maternal History Items: Diabetes, High Cholesterol, Heart Disease, Hypertension, Renal Disease, - - ALS Paternal History Items: Diabetes, High Cholesterol, Heart Disease, Hypertension, Renal Disease Sibling History Items: Diabetes Review of Systems Unable to obtain accurate/complete ROS d/t: pt sedate on vent, chart reviewed Patient Problems: Active and Suspected Problems Unresponsiveness (Acute) - Physical Exam General: - - sedate on vent Oral: Moist Mucosa Neck: Supple, No JVD Lungs: Clear to auscultation, - - on vent Cardiovascular: Regular rate, No rub noted Abdomen: Bowel Sounds Present, Soft, Non Tender, Non-Distended Extremities: No edema, - - AVF left FA weak thrill, bruit Musculoskeletal: No Muscle Wasting Neurological: - - unable to assess Psych/Mental Status: - - sedate on vent Vital Signs Temp Pulse Resp BP Pulse Ox 98.4 F 79 12 94/62 100 09/28/17 09:15 09/28/17 09:15 09/28/17 09:15 09/28/17 09:15 09/28/17 09:15 Oxygen Delivery Method Mechanical Ventilator Weight: 66.4 kg Body Mass Index (BMI) 26.1 Intake and Output for Last 24 Hours Intake Total 63 / 63 418 / 418 Output Total 4500 / 4500 650 / 650 Balance -4437 / -4437 -232 / -232 Microbiology Past 72 Hours 09/27/17 21:25 Gram Stain - Final Sputum, Induced/Lukens 09/27/17 14:48 Influenza Types A,B Direct FA (TIMMY) - Final Laboratory Tests Past 24 Hrs WBC Corrected WBC RBC Hgb Hct MCV MCH WBC Cancelled 19.3 H Corrected WBC Cancelled RBC Cancelled 3.22 L Hgb Cancelled 9.9 L Hct Cancelled 31.3 L POC Glucose POC Glucose 167 H 54 L 43 L* POC Glucose 76 100 Clinical Impression(s) from Imaging Studies Brain CT 09/27/17 09:09 IMPRESSION: 1. No CT evidence of intracranial bleeding, acute infarct or acute intracranial abnormality. 2. Large right frontal scalp hematoma is a new finding. 3. Interval resolution of small left frontal scalp hematoma. 4. Soft tissue density in the right ethmoidectomy side is most likely polyp. This was present previously and is unchanged. 5. Moderate amount of mucosal thickening in the maxillary sinuses secondary to recurrent or chronic sinusitis. Electronically Signed: Josafat Painter MD at 10:39 EST , Service support , Chest X-Ray 09/27/17 09:10 IMPRESSION: Endotracheal tube is in good position. The tip of the nasogastric tube is just distal to the gastroesophageal junction. Focal infiltrate in the posterior medial segment of the left lower lobe. Electronically Signed: Jonathan Garcia MD at 11:06 EST Tel [phone], Service support , Cervical Spine CT 09/27/17 09:13 IMPRESSION: 1. No acute fracture or malalignment of the cervical spine. 2. Schmorl's node at the T2 superior endplate is unchanged. Electronically Signed: Josafat Painter MD at 10:40 EST , Service support , Assessment/Plan Active and Suspected Problems Unresponsiveness (Acute) 1. 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 HD MWF. HD yesterday with 3L fluid removal on dialysis last night. Next dialysis Wed. Hx noncompliance with fluid restriction. CXR without CHF. 2. Hyperkalemia correct with dialysis. 3. Anemia hgb stable 4. Unresponsiveness requiring intubation. Remains on vent. sedate. s/p EEG neuro consult. Hx narcolepsy. Currently on vent, sedate. 5. DM2 stable 6. HTN low normal on sedation 7. SLE on prednisone followed by rheumatology in [facility] 09/29/17 1742 <Electronically signed by Arline Ambriz DO> Date Arline Ambriz DO Cosigner Signature (if applicable): Date CC: Arline Ambriz DO; Drew Goode D.O.; Mitchell Womack MD Signed BEDSIDE GLUCOSE Collected: 09/29/2017 Status: F Source: [place] 5:39 PM [facility] [place] TYPE CODE TESTS RESULT OUT OF REFERENCE UNITS RANGE LAB L501.080 70-110 mg/dL High BEDSIDE GLU 147 Result Comment: MANAGEMENT OF PATIENT CARE PER NURSING PROTOCOL Performed By: #### L501.080 #### Laboratory Point of Care [address] [place] [address] ELECTROENCEPHALOGRAM Observed: 09/29/2017 Status: F Source: [place] 3:38 PM [facility] [place] Pulmonary Services/Neurology [address] [place] [address] MR#: [id number] Acct: [id number] Name: PAVITHRA PAINTER Rep #: [id number] : 1970 47 From: Abdi Gonzalez MD Referring Dr: José Miguel Fierro MD Status: ADM IN Ordering Dr: Date: Location: ICU [place] [address] Sex: F A - Electroencephalogram Date of service 09/27/2017 History EEG is being done in this 47 yr F to rule out seizures EEG Description: This is an 18 channel EEG with 10-20 lead placement system. Bipolar montages, Referential and Circumferential montages were reviewed. Photic stimulation was performed but Hyperventilation was not bee performed as patient was unresponsive and intubated The posterior dominant background rhythm was not present. Photo stimulation did not elicit normal driving response or any abnormal photoparoxysmal response, Hyperventilation was not bee performed as patient was unresponsive and intubated. Sleep was not identified. There is generalized background slowing in the delta frequency range. There are intermittent occasional sharp transients along with triphasic morphology. There was no epileptiform discharges or electrographic seizures noted during this recording. EKG artifact noted consistently. EEG Interpretation This is an abnormal EEG due to the presence of severe generalized background slowing along with intermittent triphasic waves. This may be seen in generalized severe cerebral dysfunction like metabolic/toxic encephalopathy. Clinical correlation is advised. There is no epileptiform discharges or electrographic seizures noted during the record. 09/29/17 1538 <Electronically signed by Abdi Gonzalez MD> Date Abdi Gonzalez MD CC: Rudolph Gonzalez MD; Mitchell Womack MD Date Dictated: 09/27/171511 Date Transcribed: 09/27/171511 Electric Tripper Machine Operator: CHERYL Signed BEDSIDE GLUCOSE Collected: 09/29/2017 Status: F Source: [place] 11:42 AM [facility] [place] TYPE CODE TESTS RESULT OUT OF REFERENCE UNITS RANGE LAB L501.080 70-110 mg/dL High BEDSIDE GLU 187 Result Comment: MANAGEMENT OF PATIENT CARE PER NURSING PROTOCOL Performed By: #### L501.080 #### Laboratory Point of Care [address] [place], [place] [id number] BEDSIDE GLUCOSE Collected: 09/29/2017 Status: F Source: [place] 5:43 AM [facility] [place] TYPE CODE TESTS RESULT OUT OF REFERENCE UNITS RANGE LAB L501.080 70-110 mg/dL High BEDSIDE GLU 271 Result Comment: Dr Orders Followed Insulin Given MANAGEMENT OF PATIENT CARE PER NURSING PROTOCOL Performed By: #### L501.080 #### Laboratory Point of Care [address] [place] [address] RENAL PROFILE Collected: 09/29/2017 Status: F Source: [place] 4:26 AM [facility] [place] TYPE CODE TESTS RESULT OUT OF RANGE REFERENCE UNITS LAB L501.0100 70-110 mg/dL High GLU 279 Result Comment: Glucose result greater than or equal to 200 mg/dL suggests DIABETES MELLITUS per A.D.A. criteria. LAB L501.1000 7-18 mg/dL High alert BUN 104 Result Comment: Critical Result(s) Called at: 05:07:38 09/29/2017 by: WINSTON WHEATLEY RN ICU LAB L501.1100 0.55-1.02 mg/dL CREAT,SERUM High alert 7.93 Result Comment: Critical Result(s) Called at: 05:07:38 09/29/2017 by: WINSTON WHEATLEY RN ICU The validity of the calculated GFR AND GFRAA in patients over 70 years has not been determined. Clinical correlation is essential. LAB L501.1110 >60 mL/min Low EST GFR 6 Result Comment: Non- GFR Calc LAB L501.1115 >60 mL/min Low EST GFR - AA 7 Result Comment: GFR Calc LAB L501.1255 ml/min Normal Estimated CRCL 7.74 LAB L501.1300 10-20 RATIO Normal BUN/CRE 13.1 LAB L501.1800 3.4-5.0 g/dL Low ALB 2.2 Result Comment: Please note revised Albumin AND Globulin reference range effective 2017. LAB L501.2200 8.5-10.1 mg/dL Low CA 7.5 LAB L501.2300 2.5-4.9 mg/dL High alert PHOS 9.8 Result Comment: Critical Result(s) Called at: 05:07:38 09/29/2017 by: WINSTON WHEATLEY RN ICU LAB L501.5300 136-145 mmol/L Low NA 134 LAB L501.5600 3.5-5.1 mmol/L High K 5.8 LAB L501.5900 98-107 mmol/L Low CL 96 LAB L501.6100 21.0-32.0 mmol/L Normal CO2 23.0 Performed By: #### L500.3600 #### Laboratory [address] [facility] [place], [place], [address] CBC W/DIFF, AUTOMATED Collected: 09/29/2017 Status: F Source: [place] 4:26 AM [facility] [place] TYPE CODE TESTS RESULT OUT OF RANGE REFERENCE UNITS LAB L100.1000 4.4-11.0 K/mm3 High WBC 14.6 LAB L100.1200 4.2-5.4 M/mm3 Low RBC 3.02 LAB L100.1300 12.0-15.0 g/dl Low HGB 9.5 LAB L100.1400 37-47 % Low HCT 29.2 LAB L100.1500 81-99 fL Normal MCV 96.7 LAB L100.1600 27.0-32.0 pg Normal MCH 31.5 LAB L100.1700 32-36 g/gl Normal MCHC 32.5 LAB L100.1810 11.6-14.6 % High RDW CV 16.0 LAB L100.1820 35.1-43.9 fl High RDW SD 53.2 LAB L100.1900 150-450 K/mm3 Normal PLT 171 LAB L100.2000 6.2-12.0 fl Normal MPV 10.2 LAB L100.2100 47-70 % High NEUT% 90.6 LAB L100.2200 19-41 % Low LY% 3.2 LAB L100.2300 0-10 % Normal MONO% 4.9 LAB L100.2400 0-5 % Normal EO% 0.0 LAB L100.2500 0-1 % Normal BASO% 0.1 LAB L100.2550 0.0-0.9 % High IM GRAN % 1.200 Result Comment: IG% - Immature Granulocytes (promyelocytes, myelocytes and metamyelocytes) > 1% indicates that a LEFT SHIFT is Present. LAB L100.2620 2.0-7.7 X10 3/uL High Absolute Neut 13.2 LAB L100.2720 0.83-4.51 X10 3/ul Low Absolute Lymph 0.47 Performed By: #### L100.0100 #### Laboratory [address] [facility] [address] BEDSIDE GLUCOSE Collected: 09/28/2017 Status: F Source: [place] 11:21 PM [facility] [place] TYPE CODE TESTS RESULT OUT OF REFERENCE UNITS RANGE LAB L501.080 70-110 mg/dL High BEDSIDE GLU 249 Result Comment: MANAGEMENT OF PATIENT CARE PER NURSING PROTOCOL Performed By: #### L501.080 #### Laboratory Point of Care [address] [facility] [place], [place] [address] BEDSIDE GLUCOSE Collected: 09/28/2017 Status: F Source: [place] 6:38 PM [facility] [place] [facility] TYPE CODE TESTS RESULT OUT OF REFERENCE UNITS RANGE LAB L501.080 70-110 mg/dL High BEDSIDE GLU 184 Result Comment: MANAGEMENT OF PATIENT CARE PER NURSING PROTOCOL Performed By: #### L501.080 #### Laboratory Point of Care [address] [place] [address] OPERATIVE REPORT Observed: 09/28/2017 Status: F Source: [place] 2:09 PM [facility] [place] [facility] Medical Records Department [address] [place] [address] Operative Report 09/28/17 1402 MR#: [id number] Acct: [id number] Name: PAVITHRA PAINTER Rep #: [id number] : 1970 47 From: Lisa LOWERY PCP: Mitchell Womack MD, Chi Status: ADM IN Y Location: ICU [place] [address] Operative Report Date of Procedure: 09/28/17 - Arterial line Arterial line placement procedure note Indication:hemodynamic instability/vasoactive medications Procedure: A time-out was completed to verify correct patient, indication, medication allergies, procedure, coagulation studies, informed consent signed, and equipment needed. The patient was placed in the supine position for an arterial line placement to the right radial artery. The patients rt wrist was prepped using chlorhexidine and a full body sterile drape was applied. An arrow catheter introduced into the right radial artery on the first attempt. The catheter was threaded smoothly over the guidewire, the guidewire was removed easily, pulsatile blood returned. The line was flushed, has a good waveform and monitor correlates with appropriate blood pressure. The catheter was covered and secured with an occlusive dressing impregnated with chlorhexidine. Post-procedure: The patient tolerated the procedure well. Vital signs remained stable. EBL 0 cc. No complications. 09/28/17 140 <Electronically signed by Lisa LOWERY> Date Lisa LOWERY CC: Lisa Jesus; Arline Ambriz DO; Drew Goode D.O.; Mitchell Womack MD Signed BEDSIDE GLUCOSE Collected: 09/28/2017 Status: F Source: [place] 11:29 AM [facility] [place] TYPE CODE TESTS RESULT OUT OF RANGE REFERENCE UNITS LAB L501.080 70-110 mg/dL Normal BEDSIDE GLU 79 Result Comment: MANAGEMENT OF PATIENT CARE PER NURSING PROTOCOL Performed By: #### L501.080 #### Laboratory Point of Care [address] [facility] [place] [address] CONSULTATION Observed: 09/28/2017 Status: F Source: [place] 7:02 AM [facility] [place] [facility] Medical Records Department [address] [place] [address] Consultation 09/27/17 1248 MR#: [id number] Acct: [id number] Name: PAVITHRA PAINTER Rep #: [id number] : 1970 47 From: Drew Goode PCP: Mitchell Womack MD, Chi Status: ADM IN Y Location: ICU [place] [address] Reason for Consult Date of Consultation: 09/27/17 Reason for Consultation: Acute respiratory failure/encephalopathy History of Present Illness: The patient is a 47-year-old female, with a history as outlined below, who presented to the emergency department on September 27 in an unresponsive state. She was last seen in her normal state of health the evening prior. The patient does have a history of end-stage renal disease due to lupus, for which she is on hemodialysis Wednesday, Wednesday and Wednesday. The patient reportedly has a history of similar episodes to this, which apparently resolved with hemodialysis. On presentation to the emergency department, the patient was noted to be afebrile and slightly hypertensive. She was initially maintaining appropriate oxygen saturations on room air. The patient was noted to have a GCS score of 4 on presentation. Therefore, she was intubated for airway protection. Initial laboratory evaluation revealed elevated white blood cell count to 21,000. Chemistry was notable for a potassium of 6.1 with an elevated anion gap to 17. BUN and creatinine were elevated to 146 and 7.9, respectively. Urine analysis was not concerning for infection. Toxicology screen was notable for opiates. CT head showed no acute intracranial bleeding or infarction. There was evidence of a large right frontal scalp hematoma. Cervical spine CT showed no acute fracture or malalignment. Plain film chest x-ray revealed evidence of an infiltrate in the left lower lobe. MRSA screen is pending. The patient was subsequently transferred to the medical intensive care unit for ongoing management. Past Medical History Past Medical History (Chronic Problems): Chronic Problems SLE (systemic lupus erythematosus) (Chronic) Lupus nephritis (Chronic) Status post kidney and liver biopsy (fatty liver) Narcolepsy (Chronic) Hypertension (Chronic) Chronic kidney disease (Chronic) Chronic anemia (Chronic) Diabetes mellitus, type II (Chronic) Allergies NEGRO Inhibitors Allergy (Verified 09/27/17 11:53) Angioedema lisinopril Allergy (Verified 09/27/17 11:53) Angioedema Sulfa (Sulfonamide Antibiotics) Allergy (Verified 09/27/17 11:53) Rash sulfamethoxazole [From Bactrim] Allergy (Verified 09/27/17 11:53) Rash trimethoprim [From Bactrim] Allergy (Verified 09/27/17 11:53) Rash Home Medications: Ambulatory Orders Medication Instructions Recorded Atorvastatin Calcium [Lipitor] 20 mg PO QHS 10/01/16 Duloxetine Hcl [Cymbalta] 120 mg PO DAILY 10/01/16 Furosemide [Lasix] 40 mg PO BIDLX 10/01/16 Surgical History: - Psychiatric History: Depression 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 Patient Problems: Active and Suspected Problems Unresponsiveness (Acute) Objective: The patient's most recent lab work, culture data and imaging studies have all been personally reviewed. - Physical Exam General: - - Intubated, sedated mechanically ventilated. HEENT: Normocephalic, - - Frontal scalp hematoma present. Oral: No Gingival or Mucosal Lesions/ Ulcerations, Dry Mucosa, - - Endotracheal and OG tubes in place. Neck: - - Rigid cervical collar in place Lungs: - - Coarse mechanical breath sounds anteriorly. Cardiovascular: Regular rate, Regular Rhythm, Normal S1, Normal S2, No murmurs Abdomen: Bowel Sounds Present, Soft, Non Tender Extremities: No clubbing, No cyanosis, No edema, Cool, - - Left upper extremity fistula in place Skin: No rashes, No breakdown Musculoskeletal: No Tenderness to Palpation of Joints or Extremities Lymphatic: No Cervical, Supraclavicular, or Inguinal Adenopathy Neurological: - - Will grimace to painful stimulation. RASS -3 currently Vital Signs Pulse Resp BP Pulse Ox 70 17 194/95 H 100 09/27/17 12:07 09/27/17 12:07 09/27/17 12:07 09/27/17 12:07 Oxygen Delivery Method Mechanical Ventilator Labs (Last 48 Hours) WBC 21.4 H RBC 3.73 L WBC RBC Hgb Hct MCV MCH MCHC Clinical Impression(s) from Imaging Studies Brain CT 09/27/17 09:09 IMPRESSION: 1. No CT evidence of intracranial bleeding, acute infarct or acute intracranial abnormality. 2. Large right frontal scalp hematoma is a new finding. 3. Interval resolution of small left frontal scalp hematoma. 4. Soft tissue density in the right ethmoidectomy side is most likely polyp. This was present previously and is unchanged. 5. Moderate amount of mucosal thickening in the maxillary sinuses secondary to recurrent or chronic sinusitis. Electronically Signed: Josafat Painter MD at 10:39 EST , Service support , Chest X-Ray 09/27/17 09:10 IMPRESSION: Endotracheal tube is in good position. The tip of the nasogastric tube is just distal to the gastroesophageal junction. Focal infiltrate in the posterior medial segment of the left lower lobe. Electronically Signed: Jonathan Garcia MD at 11:06 EST Tel [phone], Service support , Cervical Spine CT 09/27/17 09:13 IMPRESSION: 1. No acute fracture or malalignment of the cervical spine. 2. Schmorl's node at the T2 superior endplate is unchanged. Electronically Signed: Josafat Painter MD at 10:40 EST , Service support , Assessment/Plan Active and Suspected Problems Unresponsiveness (Acute) RECOMMENDATIONS: 1. Given infiltrate identified on chest x-ray in conjunction with elevated white blood cell count, will begin empiric Zosyn, pending culture results. 2. Obtain and send sputum for culture. Check rapid influenza screen along with strep and urine Legionella antigens. 3. Restart home antihypertensive regimen. 4. Nephrology consultation. Anticipate hemodialysis today. 5. Wean FiO2 to maintain oxygen saturations at or above 90%. 6. Minimize sedation to allow improvement in mentation. 7. Start subcu heparin and Pepcid for ICU prophylaxis IMPRESSIONS: 1. Acute respiratory failure due to #2 The patient was intubated in the emergency department for airway protection. ABG has been completed. Wean sedation as tolerated. Anticipate improvement in mentation with hemodialysis. Plan for daily paired spontaneous awakening and breathing trials. The patient's plain film chest x-ray did reveal evidence concerning for a left lower lobe infiltrate. Therefore, she will be empirically started on cefepime, pending infectious workup. Subcutaneous heparin and Pepcid are to be started. 2. Encephalopathy Likely metabolic/infectious in etiology. The patient is also on a number of sedating medications in her home environment, raising the concern for polypharmacy. EEG was completed revealing generalized background slowing consistent with metabolic/toxic encephalopathy. 3. End-stage renal disease due to lupus on hemodialysis Nephrology consultation is pending. Tentative plans for hemodialysis today. 4. Anemia/diabetes/narcolepsy/hypertension/hyperlipidemia/chronic pain syndrome Complicates care, management, recovery and prognosis. Hold sedating medications for now, pending improvement in mentation. Continue baseline prednisone regimen. Restart antihypertensive regimen. TIME: 45 minutes of critical care time, independent of procedures, was spent addressing the patient's acute respiratory failure, metabolic/infectious encephalopathy, end-stage renal disease due to lupus, review of all data and collaboration with the care team. ([id number]) Code Visit 9xxxx: [id number] Critical care first hour 09/28/17 0702 <Electronically signed by Drew Goode DO> Date Drew Goode DO Cosigner Signature (if applicable): Date CC: Arline Ambriz DO; Drew Goode D.O.; Mitchell Womack MD Signed BEDSIDE GLUCOSE Collected: 09/28/2017 Status: F Source: [place] 5:19 AM [facility] [place] TYPE CODE TESTS RESULT OUT OF REFERENCE UNITS RANGE LAB L501.080 70-110 mg/dL High BEDSIDE GLU 167 Result Comment: MANAGEMENT OF PATIENT CARE PER NURSING PROTOCOL Performed By: #### L501.080 #### Laboratory Point of Care [facility] [place] [address] CBC W/DIFF, AUTOMATED Collected: 09/28/2017 Status: F Source: [place]A 5:05 AM [facility] [place] TYPE CODE TESTS RESULT OUT OF RANGE REFERENCE UNITS LAB L100.1000 4.4-11.0 K/mm3 High WBC 19.3 LAB L100.1200 4.2-5.4 M/mm3 Low RBC 3.22 LAB L100.1300 12.0-15.0 g/dl Low HGB 9.9 LAB L100.1400 37-47 % Low HCT 31.3 LAB L100.1500 81-99 fL Normal MCV 97.2 LAB L100.1600 27.0-32.0 pg Normal MCH 30.7 LAB L100.1700 32-36 g/gl Low MCHC 31.8 LAB L100.1810 11.6-14.6 % High RDW CV 16.1 LAB L100.1820 35.1-43.9 fl High RDW SD 54.1 LAB L100.1900 150-450 K/mm3 Normal PLT 177 LAB L100.2000 6.2-12.0 fl Normal MPV 10.0 LAB L100.2100 47-70 % High NEUT% 80.9 LAB L100.2200 19-41 % Low LY% 8.0 LAB L100.2300 0-10 % Normal MONO% 8.4 LAB L100.2400 0-5 % Normal EO% 0.6 LAB L100.2500 0-1 % Normal BASO% 0.1 LAB L100.2550 0.0-0.9 % High IM GRAN % 2.000 Result Comment: IG% - Immature Granulocytes (promyelocytes, myelocytes and metamyelocytes) > 1% indicates that a LEFT SHIFT is Present. LAB L100.2620 2.0-7.7 X10 3/uL High Absolute Neut 15.6 LAB L100.2720 0.83-4.51 X10 3/ul Normal Absolute Lymph 1.54 LAB L100.4500 SMEAR Normal COMMENT @SLIDE SCANNED LAB L100.5500 ADEQ PLT Normal EST ADEQUATE LAB L100.7300 ANISO 1+ Normal LAB L100.7800 1+ Normal MACROCYTE LAB L100.9900 PATH Normal REV Reviewed Result Comment: Neutrophilic leukocytosis with left shift. Normocytic anemia. Clinical correlation necessary. Gage Hernandez M.D. 09/28/17 AMENDED REPORT 09/28/17 1143 PATH REV previously reported as: January Performed By: #### L100.0100, L500.2500, L501.2300, L501.5200 #### Laboratory [address] [place], [place], [address] BASIC METABOLIC Collected: 09/28/2017 Status: F Source: PAMELA PROFILE (BMP) 5:00 AM [facility] [place] TYPE CODE TESTS RESULT OUT OF RANGE REFERENCE UNITS LAB L501.0100 70-110 mg/dL Low GLU 66 LAB L501.1000 7-18 mg/dL High BUN 79 LAB L501.1100 0.55-1.02 mg/dL High 6.07 CREAT,SERUM Result Comment: The validity of the calculated GFR AND GFRAA in patients over 70 years has not been determined. Clinical correlation is essential. LAB L501.1110 >60 mL/min Low EST GFR 8 Result Comment: Non- GFR Calc LAB L501.1115 >60 mL/min Low EST GFR - AA 10 Result Comment: GFR Calc LAB L501.1255 ml/min Normal Estimated CRCL 10.11 LAB L501.1300 10-20 RATIO Normal BUN/CRE 13.0 LAB L501.2200 8.5-10 mg/dL Low .1 CA 7.7 LAB L501.5300 136-14 mmol/L Normal 5 NA 137 LAB L501.5600 3.5-5. mmol/L High 1 K 5.6 LAB L501.5900 98-107 mmol/L Low CL 95 LAB L501.6100 21.0-3 mmol/L Normal 2.0 CO2 29.0 LAB L501.6200 5-15 Normal GAP 13 Performed By: #### L100.0100, L500.2500, L501.2300, L501.5200 #### Laboratory [address] [place], [address] PHOSPHORUS Collected: 09/28/2017 Status: F Source: PAMELA 5:00 AM [facility] [place] TYPE CODE TESTS RESULT OUT OF RANGE REFERENCE UNITS LAB L501.2300 2.5-4.9 mg/dL High PHOS 5.8 Performed By: #### L100.0100, L500.2500, L501.2300, L501.5200 #### Laboratory [address] [place], [address] MAGNESIUM Collected: 09/28/2017 Status: F Source: [place] 5:00 AM [facility] [place] TYPE CODE TESTS RESULT OUT OF RANGE REFERENCE UNITS LAB L501.5200 1.6-2.6 mg/dL Normal MG 2.2 Result Comment: Please note revised Magnesium reference range effective 2017. Performed By: #### L100.0100, L500.2500, L501.2300, L501.5200 #### Laboratory [address] [place], [address] TROPONIN-I Collected: 09/28/2017 Status: F Source: [place] 5:00 AM [facility] [place] Order Comment: 'TROP' Serial specimen #1, #2, #3, or #4: 4 TYPE CODE TESTS RESULT OUT OF RANGE REFERENCE UNITS LAB L501.4010 <0.06 ng/mL Normal 0.04 TROPONIN-I Result Comment: TROPONIN-I EXPECTED VALUES <0.05 NEGATIVE 0.06 - 0.59 AT RISK OF IA > OR = 0.60 SUGGEST IA Performed By: #### L501.4010 #### Laboratory [address] [facility] [address] [place], [place], [address] BEDSIDE GLUCOSE Collected: 09/28/2017 Status: F Source: PAMELA 4:44 AM [facility] [place] TYPE CODE TESTS RESULT OUT OF REFERENCE UNITS RANGE LAB L501.080 70-110 mg/dL Low BEDSIDE GLU 54 Result Comment: MANAGEMENT OF PATIENT CARE PER NURSING PROTOCOL Performed By: #### L501.080 #### Laboratory Point of Care [address] [place] [address] BEDSIDE GLUCOSE Collected: 09/28/2017 Status: F Source: PAMELA 4:43 AM [facility] [place] TYPE CODE TESTS RESULT OUT OF REFERENCE UNITS RANGE LAB L501.080 70-110 mg/dL Low alert BEDSIDE GLU 43 Result Comment: Repeat Test MANAGEMENT OF PATIENT CARE PER NURSING PROTOCOL Performed By: #### L501.080 #### Laboratory Point of Care [address] [place], [place] [address] BEDSIDE GLUCOSE Collected: 09/28/2017 Status: F Source: [place] 12:19 AM [facility] [place] TYPE CODE TESTS RESULT OUT OF RANGE REFERENCE UNITS LAB L501.080 70-110 mg/dL Normal BEDSIDE GLU 76 Result Comment: MANAGEMENT OF PATIENT CARE PER NURSING PROTOCOL Performed By: #### L501.080 #### Laboratory Point of Care [address] [place] [address] TROPONIN-I Collected: 09/27/2017 Status: F Source: [place] 10:50 PM [facility] [place] Order Comment: 'TROP' Serial specimen #1, #2, #3, or #4: 3 TYPE CODE TESTS RESULT OUT OF RANGE REFERENCE UNITS LAB L501.4010 <0.06 ng/mL Normal 0.04 TROPONIN-I Result Comment: TROPONIN-I EXPECTED VALUES <0.05 NEGATIVE 0.06 - 0.59 AT RISK OF IA > OR = 0.60 SUGGEST IA Performed By: #### L501.4010 #### Laboratory [address] [place] [address], [address] Observed: 09/27/2017 Status: F Source: [place] CULTURE, SPUTUM 9:25 PM [facility] [place] Gram Stain Acceptable Specimen? Yes (<25 Epithelial cells per/lpf) Gram Stain 3+ White Blood Cells 1+ Epithelial cells No organisms seen Resp. Culture No Haemophilus, Streptococcus pneumoniae, beta-hemolytic Streptococcus or Staphylococcus aureus isolated. ORGANISM 1: Presumptive C albicans Amount Growth Rare Performed By: #### M100.0800 #### Laboratory [address] [place] [address], [id number] HISTORY AND PHYSICAL Observed: 09/27/2017 Status: F Source: [place] EXAM 7:37 PM [facility] [place] [facility] Medical Records Department [address] [place] [id number] History and Physical 09/27/17 1923 MR#: [id number] Acct: [id number] Name: PAVITHRA PAINTER Rep #: [id number] : 1970 47 From: Welsy Sorensen DO PCP: Mitchell Womack MD, Chi Status: ADM IN Y Location: ICU ICU08-1 Problem List (1) Unresponsiveness Status: Acute History of Present Illness Date of Admission: 09/27/17 Chief Complaint: Unresponsiveness The patient is a 47 year old F who was seen in the emergency room at after being brought in due to unresponsiveness. Patient had similar episode in 2017. Patient is an end-stage renal disease patient and undergoes chronic dialysis. On evaluation in the emergency room, patient had snoring respirations, patient had a large hematoma over the right frontal forehead area, she was felt not to be able to control her secretions and she was intubated for airway protection by the emergency room physician. No review of systems was obtainable because of the intubation and altered mental status. Labs were obtained, she had an elevated creatinine at 7.99, BUN was 146, potassium was 6.9, white blood cell count was elevated at 21.4, UA was unremarkable, tox screen was positive for opiates, lactic acid was normal, and chest x-ray showed a focal infiltrate in the posterior medial segment of the left lower lobe. CT scan of the brain was unremarkable for acute process. Patient was admitted to ICU for acute encephalopathy- etiology unclear but in part probably due to uremia, hyperkalemia, and leukocytosis.. She will be seen by critical care, I will have an EEG performed and she will be seen by nephrology and received dialysis. Past Medical History Past Medical History (Chronic Problems): Chronic Problems SLE (systemic lupus erythematosus) (Chronic) Lupus nephritis (Chronic) Status post kidney and liver biopsy (fatty liver) Narcolepsy (Chronic) Hypertension (Chronic) Chronic kidney disease (Chronic) Chronic anemia (Chronic) Diabetes mellitus, type II (Chronic) Allergies NEGRO Inhibitors Allergy (Verified 09/27/17 11:53) Angioedema lisinopril Allergy (Verified 09/27/17 11:53) Angioedema Sulfa (Sulfonamide Antibiotics) Allergy (Verified 09/27/17 11:53) Rash sulfamethoxazole [From Bactrim] Allergy (Verified 09/27/17 11:53) Rash trimethoprim [From Bactrim] Allergy (Verified 09/27/17 11:53) Rash Home Medications: Ambulatory Orders Medication Instructions Recorded Atorvastatin Calcium [Lipitor] 20 mg PO QHS 10/01/16 Duloxetine Hcl [Cymbalta] 120 mg PO DAILY 10/01/16 Furosemide [Lasix] 40 mg PO BIDLX 10/01/16 Surgical History: noncontributory Psychiatric History: Depression 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 Lives: Alone Smoking Status: Never smoker Tobacco Use: Non-smoker - *Family History Maternal History Items: Diabetes, High Cholesterol, Heart Disease, Hypertension, Renal Disease Paternal History Items: Diabetes, High Cholesterol, Heart Disease, Hypertension, Renal Disease Sibling History Items: Diabetes Review of Systems Comment: Review of systems was unobtainable due to the patient's encephalopathy VTE Information - Inpt Only VTE Present on Admission: No VTE Mechan Device Prophylaxis: None VTE Pharm Prophylaxis ordered?: Yes Patient Problems: Active and Suspected Problems Unresponsiveness (Acute) - Physical Exam General: Well developed, Well nourished, - - Patient is unresponsive to stimuli HEENT: PERRLA, Normocephalic, - - Hematoma is noted over the right frontal forehead Oral: Moist Mucosa Neck: Supple, No JVD, Negative Carotid Bruits, Trachea Midline, Thyroid Normal Size and Texture Lungs: Clear to auscultation, Normal air movement, No rhonchi, No wheeze, No rales Cardiovascular: Regular rate, Regular Rhythm, Normal S1, Normal S2, No murmurs, No Ectopic Activity, PMI Normal, No rub noted, No Gallop Abdomen: Bowel Sounds Present, Soft, Non Tender, Non-Distended, No hernias noted Extremities: No clubbing, No cyanosis, No edema, Capillary Refill Less than 3 Seconds Skin: No rashes, No breakdown Neurological: - - Patient is currently unresponsive to painful or verbal stimuli Psych/Mental Status: - - She is unresponsive to painful or verbal stimuli Vital Signs Temp Pulse Resp BP Pulse Ox 98.3 F 92 12 128/94 H 100 09/27/17 18:36 09/27/17 18:36 09/27/17 18:36 09/27/17 18:36 09/27/17 18:36 Oxygen Delivery Method Mechanical Ventilator Weight: 69.1 kg Body Mass Index (BMI) 26.1 Intake and Output for Last 24 Hours Intake Total 63 / 63 Output Total 4500 / 4500 Balance -4437 / -4437 Microbiology Past 72 Hours 09/27/17 14:48 Influenza Types A,B Direct FA (TIMMY) - Final Laboratory Tests Past 24 Hrs Potassium 5.8 H Troponin I 0.04 MRSA (PCR) Negative POC Glucose POC Glucose 100 Assessment/Plan Active and Suspected Problems Unresponsiveness (Acute) #1 acute encephalopathy-exact etiology unclear at this point, partially may be due to uremia-patient was admitted to ICU, she will be seen by critical care, she will remain intubated for airway protection, EEG will be performed, she will be seen by nephrology and undergo dialysis today #2 uremia-patient will undergo dialysis today #3 leukocytosis-I talked with critical care briefly, they placed the patient on antibiotics for possible pneumonia #4 acute hypoxic respiratory failure secondary to acute encephalopathy- critical care will manage ventilator #5 end-stage renal disease secondary to lupus #6 depression #7 hypertension #8 chronic pain syndrome #9 hyperkalemia secondary to end-stage renal disease- patient will be dialyzed today Code Visit Inpatient E AND M: [id number] Init Hosp L3 09/27/171936 <Electronically signed by Wesly Sorensen DO> Date Wesly Sorensen DO Cosigner Signature: Date (if applicable) CC: Wesly Sorensen DO; Mitchell Womack MD Signed BEDSIDE GLUCOSE Collected: 09/27/2017 Status: F Source: [place]A 6:31 PM [facility] [place] TYPE CODE TESTS RESULT OUT OF RANGE REFERENCE UNITS LAB L501.080 70-110 mg/dL Normal BEDSIDE GLU 100 Result Comment: MANAGEMENT OF PATIENT CARE PER NURSING PROTOCOL Performed By: #### L501.080 #### [facility] [place] Laboratory Point of Care [address] [place] [address] TROPONIN-I Collected: 09/27/2017 Status: F Source: PAMELA 4:00 PM [facility] [place] Order Comment: 'TROP' Serial specimen #1, #2, #3, or #4: 2 TYPE CODE TESTS RESULT OUT OF RANGE REFERENCE UNITS LAB L501.4010 <0.06 ng/mL Normal 0.04 TROPONIN-I Result Comment: TROPONIN-I EXPECTED VALUES <0.05 NEGATIVE 0.06 - 0.59 AT RISK OF IA > OR = 0.60 SUGGEST IA Performed By: #### L501.4010 #### Laboratory [facility] [place], [address] Observed: 09/27/2017 Status: F Source: [place] INFLUENZA A+B (RAPID 2:48 PM [facility] [place] REPOSITORY FLU A/B Rapid Negative test results should be confirmed by culture. Order Rapid Viral Culture for Influenzae A+B ([id number]) if clinically indicated. Influenza Ag, Direct Presumptive NEGATIVE for Influenza A/B Antigen (See Note) Performed By: #### M101.0101 #### Laboratory [facility], [address] STREP Observed: 09/27/2017 Status: F Source: [place] PNEUMONIAE ANTIG(UR,CSF) 2:45 PM [facility] [place] S pneumo Ag URINE INTERPRETATION Negative Urine Presumptive negative for pneumococcal pneumonia, suggesting no current or recent pneumococcal infection. Infection due to S pneumoniae cannot be ruled out since the antigen present in the sample may be below the detection limit of the test. Strep pneumo Test Negative URINE (See interpretation below) Performed By: #### M300.4600 #### Laboratory [facility] [place], [address] Observed: 09/27/2017 Status: F Source: [place] LEGIONELLA ANTIGEN 2:45 PM [facility] [place] Legionella, UR Legionella Antigen result interpretation: Negative Presumptive negative for Legionella pneumophila serogroup 1 antigen in urine, suggesting no recent or current infection. Legionella Ag, Urine Negative (See interpretation below) Performed By: #### M300.4500 #### Laboratory [facility] [place], [address] POTASSIUM Collected: 09/27/2017 Status: F Source: [place] 1:50 PM [facility] [place] TYPE CODE TESTS RESULT OUT OF RANGE REFERENCE UNITS LAB L501.5600 3.5-5.1 mmol/L High K 5.8 Performed By: #### L501.5600 #### Laboratory [address] [place], [address] M R STAPH AUREUS Collected: 09/27/2017 Status: F Source: [place] DNA BY PCR 1:40 PM [facility] [place] Order Comment: Order Date: 09/27/17 TYPE CODE TESTS RESULT OUT OF RANGE REFERENCE UNITS LAB L8200.1100 Negative Normal MRSA Negative RESULT Performed By: #### L8200.1000 #### Laboratory [address] [place], [address] EMERGENCY DEPARTMENT Observed: 09/27/2017 Status: F Source: [place] SUMMARY 11:13 AM [facility] [place] [facility] Medical Records Department [address] [facility] [place] [address] Emergency Department Summary 09/27/17 1101 MR#: [id number] Acct: [id number] Name: PAVITHRA PAINTER Rep #: [id number] : 1970 47 From: Andrea Rey MD PCP: Mitchell Womack MD, Chi Status: REG ER - ER Visit Summary Date of Service: 09/27/17 Chief Complaint: Unresponsive last seen well last evening History of Present Illness: The patient is a 47 F with multiple medical problems who was scheduled for dialysis today and to see her doctor today. Brother does not know who she had an appointment with. He carried her from the house to his car since she was not responsive. She is unable to give history since her GCS is 4. Physical Examination: Vital signs are marked for an elevated blood pressure of 197/110. She has a large hematoma over the right frontal area/forehead. Pupils are 4 mm size and reactive. There is no hemotympanum. There is no CSF otorrhea or rhinorrhea. Trach is midline. Heart is regular without murmur, gallop or rub. Patient has snoring respirations. Difficult to assess breath sounds. Breath sounds are clear after intubation. Abdomen soft. There is no palpable, pulsatile mass noted. There is no abdominal bruit. She does have pulses in upper and lower extremities. DTR 1+ symmetric upper and lower extremity with no clonus or Babinski sign. Test Results: EKG reveals a sinus rhythm nonspecific ST-T wave changes and prominent T waves compared to prior. Electrode panel is remarkable for a potassium of 6.9, BUN 146, creatinine is 7.99 and a glucose of 136. It is 21.4 thousand with 83 segs and no bands. Coags are normal. UA, tox and lactate are pending. Emergency Department Course and Treatment: She arrived with a GCS of 4 with snoring respiration unable to control her secretions she was intubated for airway protection. She was preoxygenated with 1% oxygen. She received 20 mg etomidate and 75 mg of rocuronium. She was easily oral tracheal intubated with 7.5 endotracheal tube. There is appropriate color change on the capnometer. Chest x-ray confirms placement to 2.5 cm as well the haydee. OG needs to be advanced further. UA was ordered as well as urine tox. Dr. Drew Goode was contacted and is aware patient be admitted to the ICU. He requested that Dr. Ambriz be contacted. She was made aware of patient's presentation and labs. Dr. Nikunj Richmond was spoken to and will admit ICU. Treatment Plan: Further care and treatment Disposition: Admit to the ICU Impression: 1. Acute altered level of conscious unknown etiology 2. Uremia 3. Hyperkalemia 4. Forehead contusion 5. History of lupus nephritis 6. History of type 2 diabetes 7. History of hypertension This note was generated with [employer] dictation software. It may contain incorrect words, spelling, and punctuation that were not noted in review of the chart prior to signing ED Disposition - Plan for ED Patient: Chief Complaint: Unresponsive Referrals: Mitchell Womack Chi, MD [Primary Care Provider] - What to do if you have Problems For any increased pain, shortness of breath, bleeding, nausea or vomiting, chest pain, or any unexpected problems, contact your Primary Care Provider. Call [facility] ([phone]) or report to the closest Emergency Room. Call 911 if necessary. 09/27/17 1113 <Electronically signed by Andrea Rey MD> Date Andrea Villar Signature (If Indicated): Date CC: Arline Ambriz DO; Drew Goode D.O.; Mitchell Womack MD LACTIC ACID Collected: 09/27/2017 Status: F Source: [place] 10:45 AM [facility] [place] Order Comment: Yes/No query for Sepsis Lactate Rule Y TYPE CODE TESTS RESULT OUT OF RANGE REFERENCE UNITS LAB L503.6005 0.4-2.0 mmol/L Normal LACTIC ACID 0.7 Performed By: #### L503.6005 #### Laboratory [address] [place], [place], [address] Observed: 09/27/2017 Status: F Source: [place] CULTURE, BLOOD (WB) 10:45 AM [facility] [place] BC No growth in 5 days. Performed By: #### M200.1000 #### Laboratory [address] [place], [place], [address] Observed: 09/27/2017 Status: F Source: [place] CULTURE, BLOOD (WB) 10:30 AM [facility] [place] BC No growth in 5 days. Performed By: #### M200.1000 #### Laboratory [address] [facility] [address] [place], [place], [address] BLOOD GASES BY CPS Collected: 09/27/2017 Status: F Source: [place] 10:16 AM [facility] [place] TYPE CODE TESTS RESULT OUT OF RANGE REFERENCE UNITS LAB L9000.9990 Normal BLD GAS TYPE ART LAB L9001.1000 Normal SITE R Radial LAB L9001.1010 Normal SHARRI TEST POS LAB L9001.1048 Normal Mode A-C LAB L9001.1050 O2 Normal Delivery Dev Vent LAB L9001.1060 MV Normal 8.00 LAB L9001.1065 Vt Normal 450 LAB L9001.1070 RR Normal 12 LAB L9001.1074 Normal FI02 100 LAB L9001.1076 Normal PEEP 5 LAB L9001.1104 Normal Results To ED MD LAB L9001.1105 Normal Time Given 1010 LAB L9001.1110 7.35-7.45 pH Normal - I-STAT 7.37 LAB L9001.1210 35-45 mmHg Normal pCO2 - ISTAT 38.4 LAB L9001.1310 75-100 mmHG High alert PO2 I-STAT 357 LAB L9001.2300 22-26 mmol/L Normal HCO3 ISTAT 22.2 LAB L9001.2400 -2 to +2 mmol/L Low BE ISTAT -3 LAB L9001.2415 mmol/L Normal TOTAL CO2 23 ISTAT LAB L9001.2425 95-99 % High SO2 ISTAT 100 Performed By: #### L9000.0800 #### Laboratory Point of Care [address] [place] [address] URINE DRUG SCREEN Collected: 09/27/2017 Status: F Source: PAMELA (ELIZABETH) 10:00 AM [facility] [place] Order Comment: Order Date: 09/27/17 Has pt arrived? Y TYPE CODE TESTS RESULT OUT OF RANGE REFERENCE UNITS LAB L505.0075 TO BE Normal CONFIRMED Result Comment: CONFIRMATORY TESTING FOR ALL POSITIVE URINE DRUG SCREEN RESULTS WILL ONLY BE SENT OUT UPON PHYSICIAN ORDER. VISTA Urine Drug Screen methods provide only preliminary analytical test results. A more specific alternate chemical method must be used in order to obtain a confirmed analytical result. Gas chromatography/mass spectrometery (GC/MS) is the preferred confirmatory method. Clinical consideration and professional judgement should be applied to any drug of abuse test result, particularly when preliminary positive results are used. URINE TCA TESTING MUST BE ORDERED SEPARATELY. USE TEST MNEMONIC: [facility] LAB L505.5005 VISTA UDS PH 7 Normal LAB L505.5015 <1000 ng/mL AMPHETAMINES Normal NEGATIVE LAB L505.5025 < 200 ng/mL BARBITIURATES Normal NEGATIVE LAB L505.5035 < 200 ng/mL BENZODIAZIPINE Normal NEGATIVE LAB L505.5045 < 300 ng/mL COCAINE Normal NEGATIVE LAB L505.5055 < 500 ng/mL ECSTACY Normal NEGATIVE LAB L505.5065 < 300 ng/mL METHADONE Normal NEGATIVE LAB L505.5075 < 300 High ng/mL OPIATES POSITIVE LAB L505.5085 < 25 ng/mL PCP Normal NEGATIVE LAB L505.5095 < 50 ng/mL THC Normal NEGATIVE Performed By: #### L505.5000 #### Laboratory [address] [place], [address] URINALYSIS, COMPLETE Collected: 09/27/2017 Status: F Source: [place] 10:00 AM [facility] [place] Order Comment: Order Date: 09/27/17 Has pt arrived? Y How was Urine Obtained? CLEAN CATCH TYPE CODE TESTS RESULT OUT OF RANGE REFERENCE UNITS LAB L400.3000 Yellow COLOR Normal Yellow LAB L400.3050 Clear Normal CLARITY Clear LAB L400.3200 Normal mg/dl High 50 GLUCOSE, UR LAB L400.3300 Negative mg/dL Normal BILIRUBIN URINE Negative LAB L400.3400 Negative mg/dl Normal KETONE UR Negative LAB L400.3465 1.002-1.030 Normal SP.GR. DIPSTX 1.010 LAB L400.3550 5.0 - 8.0 pH UR Normal 7.0 LAB L400.3600 Negative mg/dl High PROT DIPSTX 500 LAB L400.3700 Normal mg/dl Normal UROBILI Normal LAB L400.3750 Negative Normal NITRITE UR Negative LAB L400.3780 Negative /ul High 25 OCCULT BLOOD-UR LAB L400.3800 Negative /ul LEUK Normal ESTERASE Negative LAB L400.4050 0-5 /hpf WBC 0 Normal SEEN LAB L400.4100 0-5 /hpf 0 Normal RBC-UA SEEN LAB L400.4150 5-10 /hpf SQUAM Normal EPI 0-5 SEEN LAB L400.4300 None Seen /hpf 0 Normal BACTERIA SEEN LAB L400.4350 <or=2+ /hpf 0 Normal MUCUS, URINE SEEN Performed By: #### L400.0001 #### Laboratory [address] [place], [address] CBC W/DIFF, AUTOMATED Collected: 09/27/2017 Status: F Source: [place] 9:15 AM [facility] [place] CODE TESTS RESULT OUT OF RANGE REFERENCE UNITS LAB L100.1000 4.4-11.0 K/mm3 High WBC 21.4 LAB L100.1200 4.2-5.4 M/mm3 Low RBC 3.73 LAB L100.1300 12.0-15.0 g/dl Low HGB 11.3 LAB L100.1400 37-47 % Low HCT 35.9 LAB L100.1500 81-99 fL Normal MCV 96.2 LAB L100.1600 27.0-32.0 pg Normal MCH 30.3 LAB L100.1700 32-36 g/gl Low MCHC 31.5 LAB L100.1810 11.6-14.6 % High RDW CV 16.0 LAB L100.1820 35.1-43.9 fl High RDW SD 55.5 LAB L100.1900 150-450 K/mm3 Normal PLT 228 LAB L100.2000 6.2-12.0 fl Normal MPV 9.7 LAB L100.2100 47-70 % High NEUT% 82.7 LAB L100.2200 19-41 % Low LY% 6.6 LAB L100.2300 0-10 % Normal MONO% 8.1 LAB L100.2400 0-5 % Normal EO% 0.5 LAB L100.2500 0-1 % Normal BASO% 0.1 LAB L100.2550 0.0-0.9 % High IM GRAN % 2.000 Result Comment: IG% - Immature Granulocytes (promyelocytes, myelocytes and metamyelocytes) > 1% indicates that a LEFT SHIFT is Present. LAB L100.2620 2.0-7.7 X10 3/uL High Absolute Neut 17.7 LAB L100.2720 0.83-4.51 X10 3/ul Normal Absolute Lymph 1.41 LAB L100.4500 Normal SMEAR COMMENT COMMENT Result Comment: SLIDE SCANNED - MONOCYTOSIS NOTED. LAB L100.9900 Normal Reviewed PATH REV Result Comment: Neutrophilic leukocytosis with left shift. Gage Hernandez M.D. 09/27/17 AMENDED REPORT 09/27/17 1254 PATH REV previously reported as: January maki Performed By: #### L100.0100 #### Laboratory [address] [place], [address] PROTHROMBIN TIME W/INR Collected: 09/27/2017 Status: F Source: [place] 9:15 AM [facility] [place] CODE TESTS RESULT OUT OF RANGE REFERENCE UNITS LAB L300.4150 11.7-14.9 SECONDS Normal PROTIME 12.4 LAB L300.4200 Normal INR 1.0 Performed By: #### L300.3900, L300.4310 #### Laboratory [address] [place], [place], [address] PARTIAL THROMBOPLAST Collected: 09/27/2017 Status: F Source: [place] TIME 9:15 AM [facility] [place] TYPE CODE TESTS RESULT OUT OF REFERENCE UNITS RANGE LAB L300.4310 24.1-36.2 Seconds High PTT 37.0 Performed By: #### L300.3900, L300.4310 #### Laboratory [address], [address] BASIC METABOLIC Collected: 09/27/2017 Status: F Source: [place] PROFILE (BMP) 9:15 AM [facility] [place] TYPE CODE TESTS RESULT OUT OF RANGE REFERENCE UNITS LAB L501.0100 70-110 mg/dL High GLU 136 Result Comment: Fasting Glucose result greater than or equal to 126 mg/dL suggests DIABETES MELLITUS per A.D.A. criteria. LAB L501.1000 7-18 mg/dL High alert BUN 146 Result Comment: Critical Result(s) Called at: 09:45:12 09/27/2017 by: Golden Mcguire by Crow LAB L501.1100 0.55-1.02 mg/dL CREAT,SERUM High alert 7.99 Result Comment: Critical Result(s) Called at: 09:45:12 09/27/2017 by: Golden Mcguire by Crow The validity of the calculated GFR AND GFRAA in patients over 70 years has not been determined. Clinical correlation is essential. LAB L501.1110 >60 mL/min Low EST GFR 6 Result Comment: Non- GFR Calc LAB L501.1115 >60 mL/min Low EST GFR - AA 7 Result Comment: GFR Calc LAB L501.1255 ml/min Normal Estimated CRCL 7.68 LAB L501.1300 10-20 RATIO Normal BUN/CRE 18.3 LAB L501.2200 8.5-10. mg/dL Normal 1 CA 9.4 LAB L501.5300 136-145 mmol/L Normal NA 136 LAB L501.5600 3.5-5.1 mmol/L High K alert 6.1 Result Comment: Critical Result(s) Called at: 09:45:12 09/27/2017 by: Golden Mcguire by rCow LAB L501.5900 98-107 mmol/L Normal CL 98 LAB L501.6100 21.0-32.0 mmol/L Normal CO2 21.0 LAB L501.6200 5-15 High GAP 17 Performed By: #### L500.2500, L500.3400 #### Laboratory [address] [place], [address] LIVER PROFILE Collected: 09/27/2017 Status: F Source: [place] 9:15 AM [facility] [place] TYPE CODE TESTS RESULT OUT OF RANGE REFERENCE UNITS LAB L501.1500 6.4-8.2 g/dL Normal T PROT 7.4 LAB L501.1800 3.4-5.0 g/dL Low ALB 3.0 Result Comment: Please note revised Albumin AND Globulin reference range effective 2017. LAB L501.1950 2.2-4.2 g/dL High GLOB 4.4 LAB L501.4100 15-37 U/L Normal AST 32 LAB L501.4305 45-117 U/L Normal ALK P 60 LAB L501.4405 12-78 U/L Normal ALT 25 LAB L501.4600 0.20-1.00 mg/dL Normal T BILI 0.40 LAB L501.4700 0.00-0.30 mg/dL Normal D BILI 0.10 Performed By: #### L500.2500, L500.3400 #### Laboratory [address] [facility] [place], [place], [address] SPINE CERVICAL Observed: 09/27/2017 Status: F Source: [place] WITHOUT CONTRAS 9:14 AM [facility] [place] [facility] Imaging Services [address] [place] [address] Spine Cervical without Contras MR#: [id number] Acct: [id number] Name: PAVITHRA PAINTER Rep #: [id number] : 1970 F 47 From: Josafat Painter MD PCP: Vu GARCIA,Mitchell Chi Status: REG ER Study: Spine Cervical without Contras Date of Exam: 09/27/17 Exam# [id number] Ordering Dr: Andrea Rey MD STUDY: CT CERVICAL SPINE WITHOUT CONTRAST REASON FOR EXAM: Female, 47 years old. Unresponsive. Found on floor. Forehead hematoma. History of diabetes, acute renal failure on dialysis and hypertension. RADIATION DOSAGE (If Supplied By Facility): CTDIvol = ( 29.75 ) mGy, DLP = ( 635.67 ) mGycm TECHNIQUE: High resolution transaxial imaging was performed without contrast material. Sagittal and coronal images were reconstructed. Individualized dose optimization techniques were used for this CT. COMPARISON: MRI of the cervical spine 08/23/2013. FINDINGS: Normal craniovertebral junction. Normal anterior atlantoaxial articulation. Normal odontoid process. Mild cervical kyphosis at the C4-C5 disc level. Normal vertebral bodies and posterior osseous elements. C2-3: Normal endplates. Normal disc height and morphology. Normal central canal and intervertebral neuroforamina. C3-4: Normal endplates. Normal disc height and morphology. Normal central canal and intervertebral neuroforamina. C4-5: Normal endplates. Normal disc height and morphology. Normal central canal and intervertebral neuroforamina. C5-6: Normal endplates. Normal disc height and morphology. Normal central canal and intervertebral neuroforamina. C6-7: Normal endplates. Normal disc height and morphology. Normal central canal and intervertebral neuroforamina. C7-T1: Normal endplates. Normal disc height and morphology. Normal central canal and intervertebral neuroforamina. Normal visualized soft tissue structures. CT/Spine Cervical without Contras IMPRESSION: 1. No acute fracture or malalignment of the cervical spine. 2. Schmorl's node at the T2 superior endplate is unchanged. Electronically Signed: Josafat Painter MD at 10:40 EST , Service support , CC: Mitchell Womack MD; Andrea Rey MD Electric Tripper Machine Operator: Signed BRAIN/HEAD WITHOUT Observed: 09/27/2017 Status: F Source: [place] CONTRAST 9:12 AM [facility] [place] [facility] Imaging Services [address] [place] [address] Brain/Head without Contrast MR#: [id number] Acct: [id number] Name: PVAITHRA PAINTER Rep #: [id number] : 1970 F 47 From: Josafat Painter MD PCP: Mitchell Womack MD, Chi Status: REG ER Study: Brain/Head without Contrast Date of Exam: 09/27/17 Exam# [id number] Ordering Dr: Andrea Rey MD STUDY: CT BRAIN WITHOUT CONTRAST REASON FOR EXAM: Female, 47 years old. Unresponsive. Found on floor. Forehead hematoma. History of diabetes, acute renal failure on dialysis and hypertension. RADIATION DOSAGE (If Supplied By Facility): CTDIvol = ( 60.81 ) mGy, DLP = ( 1021.47 ) mGycm TECHNIQUE: Transaxial CT imaging of the brain was performed without administration of intravenous contrast material. Coronal and sagittal reconstructions were performed. Individualized dose optimization techniques were used for this CT. COMPARISON: 05/25/2017. FINDINGS: Large right frontal scalp hematoma. Interval improvement of left frontal scalp hematoma. Normal calvarium. Normal size ventricles and extra-axial spaces for the patient's age. Normal white matter tracts of the cerebral hemispheres. Normal basal ganglia and thalami. Normal brainstem. Normal cerebellum. There is no intracranial hemorrhage. There are no findings of an acute ischemic infarction. Moderate mucosal thickening in the maxillary sinuses are recurrent. Soft tissue density in the right ethmoidectomy site is suspicious for polyp. This is unchanged. CT/Brain/Head without Contrast IMPRESSION: 1. No CT evidence of intracranial bleeding, acute infarct or acute intracranial abnormality. 2. Large right frontal scalp hematoma is a new finding. 3. Interval resolution of small left frontal scalp hematoma. 4. Soft tissue density in the right ethmoidectomy side is most likely polyp. This was present previously and is unchanged. 5. Moderate amount of mucosal thickening in the maxillary sinuses secondary to recurrent or chronic sinusitis. Electronically Signed: Josafat Painter MD at 10:39 EST , Service support , CC: Mitchell Womack MD; Andrea Rey MD Electric Tripper Machine Operator: Signed CHEST 1 VIEW Observed: 09/27/2017 Status: F Source: [place] (PORTABLE) 9:12 AM [facility] [place] [facility] Imaging Services [address] [place] [address] Chest 1 View (Portable) MR#: [id number] Acct: [id number] Name: PAVITHRA PAINTER Rep #: [id number] : 1970 F 47 From: Jonathan Garcia MD PCP: Mitchell Womack MD, Chi Status: REG ER Study: Chest 1 View (Portable) Date of Exam: 09/27/17 Exam# [id number] Ordering Dr: Andrea Rey MD STUDY: X-RAY CHEST REASON FOR EXAM: Female, 47 years old. Endotracheal tube and nasogastric tube placement. TECHNIQUE: Single AP portable view of the chest. COMPARISON: Comparison is made with prior examination dated September 16, 2017. FINDINGS: An endotracheal tube is in situ. The tip is at 3.7 sinus proximal to the haydee. A nasogastric tube is seen. The tip is at the gastroesophageal junction. A left-sided portacatheter is seen with the tip at the junction of the superior vena cava and right atrium. EKG electrodes are seen. Patchy infiltrate is seen in the posterior medial segment of the left lower lobe. There is no demonstrated pleural abnormality. Normal size heart. Normal mediastinum and malorie. Normal visualized pulmonary arteries. There is atherosclerotic tortuosity of the aortic arch and descending thoracic aorta. Normal visualized thoracic spine. Normal visualized ribs, clavicles, and shoulders. There is no demonstrated abnormality of the visualized soft tissue structures of the upper abdomen. RAD/Chest 1 View (Portable) IMPRESSION: Endotracheal tube is in good position. The tip of the nasogastric tube is just distal to the gastroesophageal junction. Focal infiltrate in the posterior medial segment of the left lower lobe. Electronically Signed: Jonathan Garcia MD at 11:06 EST Tel [phone], Service support , CC: Mitchell Womack MD; Andrea Rey MD Electric Tripper Machine Operator: Signed Observed: 09/16/2017 Status: F Source: [place] RESPIRATORY PANEL 12:18 PM [facility] [place] Has pt arrived? Y RP PANEL Normal Reference Range = Not Detected Copy of report sent to Infection Control Printer MS#[id number] 09/18/17 0817 DENNIS. RESULTS CALLED TO CLEMENT/@[place] 09/20/17 0843 Yudy Coppola. REPORT READ BACK BY SAME. ADENOVIRUS Not Detected HUMAN METAPHNEUMO Positive for HUMAN METAPHNEUMO VIRUS by NAAT technology INFLUENZA A Not Detected INFLUENZA A (SUBTYPE H1) Not Detected INFLUENZA A (SUBTYPE H3) Not Detected INFLUENZA B Not Detected PARAINFLUENZA 1 Not Detected PARAINFLUENZA 2 Not Detected PARAINFLUENZA 3 Not Detected PARAINFLUENZA 4 Not Detected RHINOVIRUS Not Detected RSV A Not Detected RSV B Not Detected NAAT METHOD Testing was performed using nucleic acid amplification ORGANISM 1: HUMAN META Performed By: #### M100.638 #### Laboratory [address] [place], [address] CHEST PA AND LATERAL Observed: 09/16/2017 Status: F Source: [place] 12:00 PM [facility] [place] [facility] Imaging Services [address] [place] [address] Chest PA and Lateral MR#: [id number] Acct: [id number] Name: PAVITHRA PAINTER Rep #: [id number] : 1970 F 47 From: Shanon Ambriz MD PCP: Mitchell Womack MD, Chi Status: REG CLI Study: Chest PA and Lateral Date of Exam: 09/16/17 Exam# [id number] Ordering Dr: Mitchell Womack MD STUDY: X-RAY CHEST REASON FOR EXAM: Female, 47 years old. Cough shortness of breath TECHNIQUE: PA and lateral views of the chest. COMPARISON: May 25, 2017 FINDINGS: There is a stable left central venous line. There is new bibasilar atelectasis. There is no demonstrated pleural abnormality. Normal size heart. Normal mediastinum and malorie. Normal visualized pulmonary arteries. Normal visualized aortic arch and descending thoracic aorta. Normal visualized thoracic spine. Normal visualized ribs, clavicles, and shoulders. There is no demonstrated abnormality of the visualized soft tissue structures of the upper abdomen. RAD/Chest PA and Lateral IMPRESSION: There is new bibasilar atelectasis. Electronically Signed: Shanon Ambriz MD at 12:49 EST , Service support , CC: Mitchell Womack MD Electric Tripper Machine Operator: Signed FOLLICLE STIMULATING Collected: 09/16/2017 Status: F Source: [place] HORMONE 11:50 AM [facility] [place] TYPE CODE TESTS RESULT OUT OF RANGE REFERENCE UNITS LAB L3100.5125 mIU/mL Normal FSH 0.2 Result Comment: NORMAL REFERENCE RANGES FEMALE FOLLICULAR 2.3 - 12.6 mIU/mL MID-CYCLE PEAK 5.2 - 17.5 mIU/mL LUTEAL 1.7 - 12.9 mIU/mL POST-MENOPAUSAL ON MHT 5.9 - 72.8 mIU/mL NOT ON MHT 12.7 - 132.2 mlU/mL MALE 0.7 - 10.8 mIU/mL NEW TEST METHOD AND REFERENCE RANGES FEBRUARY 01, 2012 Performed By: #### L3100.5125 #### Laboratory [address] [place], [address] CROSSMATCH, FREEZE Collected: 09/09/2017 Status: F Source: [place] 8:20 PM [facility]ITALS REPOSITORY TYPE CODE TESTS RESULT OUT OF REFERENCE UNITS RANGE LAB HLFXM(LOINC ) CROSSMATCH, COMMENT FREEZE Result Comment: SEE SEPARATE REPORT. Performed By: #### HLFXM #### [facility] [address] [place] [address] CBC W/DIFF, AUTOMATED Collected: 09/09/2017 Status: F Source: [place] 4:13 PM [facility] [place] TYPE CODE TESTS RESULT OUT OF RANGE REFERENCE UNITS LAB L100.1000 4.4-11.0 K/mm3 High WBC 11.3 LAB L100.1200 4.2-5.4 M/mm3 Low RBC 3.36 LAB L100.1300 12.0-15.0 g/dl Low HGB 10.2 LAB L100.1400 37-47 % Low HCT 32.1 LAB L100.1500 81-99 fL Normal MCV 95.5 LAB L100.1600 27.0-32.0 pg Normal MCH 30.4 LAB L100.1700 32-36 g/gl Low MCHC 31.8 LAB L100.1810 11.6-14.6 % High RDW CV 15.3 LAB L100.1820 35.1-43.9 fl High RDW SD 51.1 LAB L100.1900 150-450 K/mm3 Normal PLT 202 LAB L100.2000 6.2-12.0 fl Normal MPV 10.3 LAB L100.2100 47-70 % High NEUT% 84.1 LAB L100.2200 19-41 % Low LY% 8.4 LAB L100.2300 0-10 % Normal MONO% 6.7 LAB L100.2400 0-5 % Normal EO% 0.1 LAB L100.2500 0-1 % Normal BASO% 0.2 LAB L100.2550 0.0-0.9 % Normal IM GRAN % 0.500 Result Comment: IG% - Immature Granulocytes (promyelocytes, myelocytes and metamyelocytes) > 1% indicates that a LEFT SHIFT is Present. LAB L100.2620 2.0-7.7 X10 3/uL High Absolute Neut 9.5 LAB L100.2720 0.83-4.51 X10 3/ul Normal Absolute Lymph 0.95 Performed By: #### L100.0100 #### Laboratory [place], [address] COMPREHENSIVE METABOLIC Collected: 09/09/2017 Status: F Source: [facility] 4:13 PM [facility] [place] TYPE CODE TESTS RESULT OUT OF RANGE REFERENCE UNITS LAB L501.0100 70-110 mg/dL High GLU 152 Result Comment: Fasting Glucose result greater than or equal to 126 mg/dL suggests DIABETES MELLITUS per A.D.A. criteria. LAB L501.1000 7-18 mg/dL High BUN 81 LAB L501.1100 0.55-1.02 mg/dL High CREAT,SERUM 6.25 Result Comment: The validity of the calculated GFR AND GFRAA in patients over 70 years has not been determined. Clinical correlation is essential. LAB L501.1110 >60 mL/min Low EST GFR 8 Result Comment: Non- GFR Calc LAB L501.1115 >60 mL/min Low EST GFR - AA 9 Result Comment: GFR Calc LAB L501.1300 10-20 RATIO Normal BUN/CRE 13.0 LAB L501.1500 6.4-8.2 g/dL T Normal PROT 7.2 LAB L501.1800 3.4-5.0 g/dL Low ALB 3.0 Result Comment: Please note revised Albumin AND Globulin reference range effective 2017. LAB L501.1950 2.2-4.2 g/dL Normal GLOB 4.2 LAB L501.2000 0.9-2.4 RATIO Low A/G 0.7 LAB L501.2200 8.5-10.1 mg/dL Low CA 8.4 LAB L501.4100 15-37 U/L Normal AST 36 LAB L501.4305 45-117 U/L Normal ALK P 64 LAB L501.4405 12-78 U/L Normal ALT 18 LAB L501.4600 0.20-1.00 mg/dL Normal T BILI 0.40 LAB L501.5300 136-145 mmol/L Normal NA 136 LAB L501.5600 3.5-5.1 mmol/L High K 5.5 LAB L501.5900 98-107 mmol/L Normal CL 99 LAB L501.6100 21.0-32.0 mmol/L Normal CO2 26.0 LAB L501.6200 5-15 Normal GAP 11 Performed By: #### L500.4050, L501.9520 #### Laboratory [address] [place], [place], [address] THYROID STIM HORMONE Collected: 09/09/2017 Status: F Source: [place] (TSH) 4:13 PM [facility] [place] TYPE CODE TESTS RESULT OUT OF RANGE REFERENCE UNITS LAB L501.9520 0.358-3.74 uIU/mL Normal TSH 0.62 Performed By: #### L500.4050, L501.9520 #### Laboratory [address] [facility] [place], [address] ECHOCARDIOGRAM Observed: 07/29/2017 Status: F Source: [place] 11:39 AM HOSPITALS REPOSITORY [facility], [address] [place] [address] and TRANSTHORACIC ECHOCARDIOGRAM REPORT Patient Name: PAVITHRA [place] [address] Lorena Baron Physician: Study Date: 07/29/2017 Referring Lori Pfeiffer MD Physician: MRN/PID: [id number] PCP: Accession/Order#: [id number] [facility] Non Invasive Location: Date of : 1970 Fellow: Gender: F Nurse: Admit Date: Recoating Machine Operator: Сергей Sutton [facility] Admission Status: Outpatient Additional Staff: Height: 162.56 cm CC Report to: Weight: 68.04 kg Study Type: Echocardiogram BSA: 1.73 m2 Blood Pressure: 145 /87 mmHg Diagnosis/ICD: Z01.818 Encounter for other preprocedural examination Indication: Pre-op Cardiovascular exam Procedure/CPT: Echo Complete w/Full Doppler (18110) Patient History: Diabetes: Yes Pertinent History: HTN, Renal Failure, Dialysis and LE Edema. PHYSICIAN INTERPRETATION: Left Ventricle: The left ventricular systolic function is normal, with an estimated ejection fraction of 60%. The left ventricular cavity size is normal. Spectral Doppler shows an impaired relaxation pa ttern of left ventricular diastolic filling. Left Atrium: The left atrium is mildly dilated. Right Ventricle: The right ventricle is normal in size. There is normal right ventricular global systolic function. Right Atrium: The right atrium is normal in size. Aortic Valve: The aortic valve appears normal. There is mild aortic valve thickening. There is trace to mild aortic valve regurgitation. The peak instantaneous gradient of the aortic valve is 9.9 mmHg. Mitral Valve: The mitral valve is normal in structure. There is trace to mild mitral valve regurgitation. Tricuspid Valve: The tricuspid valve is structurally normal. There is mild tricuspid regurgitation. Pulmonic Valve: The pulmonic valve is structurally normal. There is no indication of pulmonic valve regurgitation. Pericardium: There is no pericardial effusion noted. Aorta: The aortic root is normal. Systemic Veins: The inferior vena cava appears to be of normal size. CONCLUSIONS: 1. The left ventricular systolic function is normal with a 60% estimated ejection fraction. 2. Spectral Doppler shows an impaired relaxation pattern of left ventricular diastolic filling. QUANTITATIVE DATA SUMMARY: 2D MEASUREMENTS: Normal Ranges: RVIDd: 6.81 cm (0.9-3.6cm) IVSd: 1.38 cm (0.6-1.1cm) LVPWd: 1.14 cm (0.6-1.1cm) LVIDd: 4.90 cm (3.9-5.9cm) LVIDs: 3.15 cm LV Mass Index: 139.6 g/m2 LV % FS 35.7 % LA VOLUME: Normal Ranges: LA Volume Index: 49.0 ml/m2 M-MODE MEASUREMENTS: Normal Ranges: Ao Root: 3.90 cm (2.0-3.7cm) LAs: 3.84 cm (2.7-4.0cm) AORTA MEASUREMENTS: Normal Ranges: Asc Ao, d: 3.10 cm (2.1-3.4cm) LV SYSTOLIC FUNCTION BY 2D PLANIMETRY (MOD): Normal Ranges: EF-A4C View: 61.0 % (>55%) EF-A2C View: 52.6 % EF-Biplane: 56.9 % LV DIASTOLIC FUNCTION: Normal Ranges: MV Peak E: 1.08 m/s (0.7-1.2 m/s) MV Peak A: 1.14 m/s (0.42-0.7 m/s) E/A Ratio: 0.95 (1.0-2.2) MV A Dur: 95.73 msec PulmV Sys Mike: 63.43 cm/s PulmV Cade Mike: 61.63 cm/s PulmV S/D Mike: 1.03 MITRAL VALVE: Normal Ranges: MV DT: 143 msec (150-240msec) AORTIC VALVE: Normal Ranges: AoV Vmax: 1.57 m/s (<1.7m/s) AoV Peak P.9 mmHg (<20mmHg) LVOT Max Mike: 1.16 m/s (<1.1m/s) LVOT VTI: 22.28 cm LVOT Diameter: 1.96 cm (1.8-2.4cm) AoV Area,Vmax: 2.24 cm2 (2.5-4.5cm2) AORTIC INSUFFICIENCY: AI Vmax: 5.04 m/s AI Half-time: 228 msec AI Decel Time: 787 msec AI Decel Rate: 640.52 cm/s2 RIGHT VENTRICLE: RV 1 4.6 cm RV 2 3.0 cm RV 3 6.8 cm TRICUSPID VALVE/RVSP: Normal Ranges: Peak TR Velocity: 3.03 m/s RV Syst Pressure: 36.2 (< 30mmHg) PULMONIC VALVE: Normal Ranges: PV Max Mike: 1.1 m/s (0.6-0.9m/s) PV Max P.8 mmHg Pulmonary Veins: PulmV Cade Mike: 61.63 cm/s PulmV S/D Mike: 1.03 PulmV Sys Mike: 63.43 cm/s AORTA: Asc Ao Diam 3.05 cm [id number] Lorena Baron MD Electronically signed on 07/29/2017 at 1:06:19 PM Final ALLERGIES ALLERGIES DATE TYPE / CODE NAME / CODE REACTION SEVERITY SOURCE 08/07/2018 Drug NEGRO Angioedema Unknown [place] Allergy/[id number]( Inhibitors/F[facility]) [id number]([facility] ) Repository 08/07/2018 Drug Sulfa Rash Unknown [facility] Allergy/457532823( (Sulfonamide Community SNOMED CT) Antibiotics)/F Hospital [id number]([facility]) 08/07/2018 Drug lisinopril/F00 Angioedema Unknown [facility] Allergy/009146079( 4750179(RXNORM Community SNOMED CT) ) Hospital Repository 08/07/2018 Drug sulfamethoxazo Rash Unknown [facility] Allergy/639693099( le/[id number]( Community SNOMED CT) RXNORM) Hospital Repository 08/07/2018 Drug trimethoprim/F Rash Unknown [facility] Allergy/458728241( 670037125(RXNO Community SNOMED CT) RM) Hospital Repository 07/27/2018 Miscellaneous Angioderm Unknown Unknown [facility] Allergy/542300154( On License Of [facility] SNOMED [facility]) Hospital Repository ENCOUNTERS ENCOUNTERS ADMIT/DISCHARGE ACCOUNT NUMBER ADMITTING ENCOUNTER LOCATION SOURCE CLASS 08/30/2018 [id number] Ambulatory [facility] Repository 08/25/2018 [id number] Ambulatory [facility] Repository 08/25/2018 [id number] Ambulatory [facility] Repository 08/18/2018 [id number] Ambulatory [facility] ding:OPBI Repository 08/12/2018/08/15/20 [id number] [facility]patient [place] [address] [address] [facility] ding:PCURoom Repository : [id number]: 1 08/12/2018 [id number] [facility] Ambulatory [facility]: [place] BMS.[facility] Repository 08/12/2018 [id number] [facility]: [place] BMS.[facility] Repository 08/12/2018 [id number] [facility]: [place] BMS.[facility] Repository 08/12/2018 [id number] [facility]MS[facility]: [place] BMS.CF.[facility] Repository 08/12/2018 [id number] [facility]: [place] BMS.[facility] Repository 08/12/2018 [id number] Kvng [facility] BMSBuilding: [facility] [place] BMS.[facility] Repository 08/07/2018/08/08/20 [id number] Emergency [address] ding:ED Repository 07/28/2018 [id number] Ambulatory [facility] ding:LAB Repository 07/28/2018/07/28/20 [id number] Ambulatory BMSBuilding: [facility] BMS[facility] Hospital Repository 07/26/2018 [id number] Ambulatory Build[facility] [id number]: System [id number]: Repository [id number] 07/19/2018 [id number] Ambulatory [facility] Repository 07/11/2018 [id number] Ambulatory [facility] Repository 06/30/2018 [id number] [facility] [facility] ding:MASS Repository 06/17/2018 [id number] Ambulatory Building:[facility] Repository 06/17/2018 [id number] Ambulatory Building:[facility] Repository 06/17/2018 [id number] Ambulatory Building:[facility]ER [facility] Repository 06/10/2018 [id number] Ambulatory [facility] Repository 06/10/2018 [id number] Ambulatory [facility] Repository 06/09/2018 [id number] Ambulatory [facility] ding:POLAB3 Repository 06/09/2018/06/09/20 [id number] Ambulatory BMSBuilding: Pamela 18 BMS.[facility] Repository 06/02/2018/06/02/20 [id number] Ambulatory [address] ding:OT Repository 06/02/2018 [id number] Ambulatory [facility] ding:CVS Repository 06/02/2018 [id number] Ambulatory BMSBuilding: [facility] Repository 05/20/2018 [id number] Ambulatory BuildinA [facility] GVV4Fauv: System [id number]: Repository [id number] 05/19/2018/05/19/20 [id number] Ambulatory [facility] ding:SDCRoom Repository : AC09 05/19/2018 [id number] Ambulatory BMSBuilding: [facility] BMS.CF.[facility] Repository 05/12/2018 [id number] Ambulatory [facility] ding:LABSPEC Repository 05/12/2018/05/12/20 [id number] Ambulatory BMSBuilding: Pamela 18 BMS.[facility] Repository 05/06/2018 [id number] Ambulatory [facility] Repository 04/26/2018 [id number] Ambulatory BuildinA [address]: System [id number]: Repository [id number] 04/21/2018 [id number] Ambulatory [facility] Repository 04/21/2018 [id number] Ambulatory [facility] Repository 04/12/2018 [id number] Ambulatory [facility] Repository 04/07/2018/04/07/20 [id number] Ambulatory BMSBuilding: Pamela 18 BMS.[facility] Repository 03/17/2018 [id number] Ambulatory [facility] ding:CLSP Repository 03/17/2018 [id number] Ambulatory BMSBuilding: Pamela BMS.CF.[facility] Repository 03/15/2018/03/15/20 [id number] Ambulatory BMSBuilding: Pamela 18 BMS.[facility] Repository 03/10/2018 [id number] [facility] Repository 03/08/2018/03/08/20 [id number] Ambulatory BMSBuilding: Pamela 18 BMS.[facility] Repository 03/08/2018/03/08/20 [id number] Ambulatory BMSBuilding: Pamela 18 BMS.[facility] Repository 03/04/2018 [id number] Ambulatory [facility] ding:HPRAD Repository 03/04/2018/03/04/20 [id number] Ambulatory BMSBuilding: Pamela 18 BMS.[facility] Repository 03/03/2018/03/03/20 [id number] Ambulatory BMSBuilding: [place] 18 BMS.[facility] Repository 03/03/2018 [id number] Ambulatory [facility] ding:CLSP Repository 03/01/2018 [id number] Ambulatory [facility] ding:RAD Repository 03/01/2018/03/01/20 [id number] Ambulatory BMSBuilding: [place] 18 BMS.[facility] Repository 02/24/2018/02/25/20 [id number] Ambulatory BMSBuilding: Pamela 18 BMS.[facility] Repository 02/23/2018 [id number] Ambulatory Building:[facility] Repository 02/23/2018 [id number] Ambulatory Building:[facility] Repository 02/21/2018 [id number] Ambulatory [facility] Repository 02/17/2018 [id number] Ambulatory [facility] ding:CVS Repository 02/17/2018 [id number] [facility] 02/17/2018/02/18/20 [id number] Ambulatory BMSBuilding: [place] 18 BMS.[facility] Repository 02/10/2018 [id number] Ambulatory [facility] ding:HPRAD Repository 02/10/2018/02/11/20 [id number] Ambulatory BMSBuilding: [place] 18 BMS.[facility] Repository 02/10/2018/02/11/20 [id number] Ambulatory BMSBuilding: [place] 18 BMS.[facility] Repository 02/03/2018 [id number] Ambulatory [facility] Repository 02/03/2018 [id number] Ambulatory BMSBuilding: Pamela BMS.CF.[facility] Repository 02/01/2018/02/02/20 [id number] Ambulatory [address] ding:SDC Repository 02/01/2018 [id number] Ambulatory BMSBuilding: Pamela BMS.CF.[facility] Repository 01/31/2018/02/01/20 [id number] Ambulatory BMSBuilding: [place] 18 BMS.[facility] Repository 01/25/2018 [id number] Ambulatory [facility] ding:CVS Repository 01/25/2018 [id number] Ambulatory [facility] ding:CVS Repository 01/25/2018 [id number] Ambulatory BMSBuilding: Pamela [facility] Repository 01/20/2018 [id number] Ambulatory [facility] ding:OMD Repository 01/20/2018 [id number] Ambulatory BMSBuilding: [facility] BMS.CF[facility] Repository 01/11/2018/01/12/20 [id number] Ambulatory BMSBuilding: Pamela 18 BMS.[facility] Repository 01/11/2018/01/12/20 [id number] Ambulatory BMSBuilding: Pamela 18 BMS.[facility] Repository 01/11/2018/01/12/20 [id number] Ambulatory BMSBuilding: Pamela 18 BMS.[facility] Repository 01/06/2018/01/07/20 [id number] Ambulatory BMSBuilding: Pamela 18 BMS.[facility] Repository 12/15/2017/12/16/19 [id number] Ambulatory BMSBuilding: [place] 18 BMS.[facility] Repository 12/14/2017/12/15/19 [id number] Ambulatory BMSBuilding: [place] 18 BMS.[facility] Repository 12/10/2017 [id number] Ambulatory [facility] Repository 12/10/2017/12/11/19 [id number] Ambulatory [address] ding:SDC Repository 12/10/2017 [id number] Ambulatory BMSBuilding: Pamela BMS.CF.[facility] Repository 12/09/2017 [id number] Ambulatory [facility] ding:CVS Repository 12/08/2017/12/09/19 [id number] Ambulatory BMSBuilding: [place] 18 BMS.[facility] Repository 12/08/2017 [id number] Ambulatory BMSBuilding: Pamela BMS.[facility] Repository 11/30/2017 [id number] Ambulatory [facility] ding:POLAB3 Repository 11/19/2017 [id number] Ambulatory [facility] ding:MEDOUTP Repository 11/17/2017 [id number] Ambulatory Building:[facility] Repository 11/17/2017 [id number] Ambulatory Building:[facility] Repository 11/10/2017 [id number] Ambulatory [facility] Repository 11/06/2017 [id number] Ambulatory [facility] ding:LABSPEC Repository 10/18/2017/10/18/19 [id number] Ambulatory [address] ding:SDC Repository 10/11/2017 [id number] Ambulatory [facility] ding:LABSPEC Repository 10/06/2017 [id number] Ambulatory [facility] Repository 09/28/2017 [id number] Ambulatory [facility] ding:RAD Repository 09/28/2017 [id number] Ambulatory BMSBuilding: Pamela BMS.[facility] Repository 09/27/2017/10/03/19 [id number] Tereletsky, Inpatient [facility] ding:PCURoom Repository : FAN523Dsz: 1 09/27/2017 [id number] Tereletsky, Ambulatory BMSBuilding: Pamela Wesly BMS.[facility] Repository 09/27/2017 [id number] Tereletsky, Ambulatory BMSBuilding: Pamela [facility] Repository 09/27/2017 [id number] Tereletsky, [facility] 09/27/2017 [id number] Tereletsky, Ambulatory BMSBuilding: Pamela Wesly BMS.[facility] Repository 09/27/2017 [id number] Tereletsky, Ambulatory BMSBuilding: Pamela Wesly BMS.[facility] Repository 09/27/2017 [id number] Tereletsky, [facility] 09/27/2017 [id number] Tereletsky, Ambulatory BMSBuilding: [facility] Wesly BMS.[facility] Repository 09/27/2017 [id number] Tereletsky, Ambulatory BMSBuilding: [facility] Wesly [facility] Repository 09/27/2017 [id number] Tereletsky, [facility] 09/27/2017 [id number] Tereletsky, Ambulatory BMSBuilding: [facility] Wesly BMS.[facility] Repository 09/27/2017 [id number] Tereletsky, Ambulatory BMSBuilding: [facility] Wesly [facility] Repository 09/27/2017 [id number] Tereletsky, Ambulatory BMSBuilding: Pamela Jarrell BMS.[facility] Repository 09/27/2017 [id number] Tereletsky, Ambulatory BMSBuilding: Pamela Jarrell [facility] Repository 09/27/2017 [id number] Tereletsky, Ambulatory BMSBuilding: [facility] Wesly BMS.[facility] Repository 09/21/2017 [id number] Ambulatory [facility] ding:USHP Repository 09/16/2017 [id number] Ambulatory [facility] ding:MEDOUTP Repository 09/09/2017 [id number] Ambulatory [facility] ding:POLAB3 Repository 09/09/2017 [id number] Ambulatory [facility] Repository PAYERS PAYERS ENCOUNTER GUARANTOR PAYER SUBSCRIBER SOURCE 08/30/2018 PAVITHRA NEUMANN: Primary PAVITHRA Rodríguez [facility] [place] Insurance:[facility] [id number] [facility] [address] [place], [place] Number: [place], [place] [address]Myu: (507) [id number] [phone]: () Date:Plan Name:[facility] () 08/25/2018 PAVITHRA NEUMANN: Primary PAVITHRA Rodríguez VADIMOB: [place] [id number] Insurance:MedicarePol [id number] [facility] icy Number: [address] [place] [address] [id number] [place], [place] [address]Ujm: (330) Date:Plan Name:[facility] [address]173Tgu: (HP) A [phone] () 08/25/2018 Secondary PAVITHRA NEUMANN: [place] Insurance:MedicarePol [id number] [facility] icy Number: 6 [facility] [id number] [place] Date:Plan Name:[facility] [address]Szq: (330) B 263 () 08/25/2018 Tertiary PAVITHRA NEUMANN: [place] [facility] [id number] [facility] icy Number: 6 [address] Repository [id number] [place] Date:Plan [address]Gew: (330) Name:[phone] (HP) [address] [address]VW: 08/25/2018 PAVITHRA FIERROOB: Primary PAVITHRA FIERROOB: [place] Insurance:[facility] [id number] [facility] 6 [address] Repository [facility], [place] Number: [place], [place] [address]Vcl: [phone]) [id number] [address]Xsb: (HP) Date:Plan Name:[facility] [id number] () 08/25/2018 Secondary PAVITHRA FIERROOB: [place] Insurance:MedicarePol [id number] [facility] icy Number: 6 [facility] Repository [id number] [facility], [place] Date:Plan Name:[facility] [address]Gky: (330) A [phone] (HP) 08/25/2018 Tertiary PAVITHRA FIERROOB: [place] Insurance:MedicarePol [id number] [facility] icy Number: 6 [facility] Repository [id number] [facility], [place] Date:Plan Name:[facility] [address]Amc: (330) [address] [phone] (HP) 08/25/2018 Tertiary PAVITHRA FIERROOB: [place] Insurance:MedicaidPol [id number] [facility] icy Number: 6 [facility] Repository [id number] [facility], [place] Date:Plan [address]Mvw: (330) Name:[phone] (HP) [place] [address]DT: 08/18/2018 PAVITHRA Rodríguez [id number] Primary PAVITHRA FIERROOB: [facility] Insurance:MEDICARE [id number] [facility] PART A [facility] [address]Nuy: (330) Number: Repository [phone] () [id number] Date:2018-05-04 08/18/2018 Secondary PAVITHRA H CHANDOB: Pamela Insurance:MEDICAIDPol [id number] [facility] icy Number: Hospital [id number] Repository Date:2018-05-04 08/18/2018 Tertiary NOT GIVENUNK [facility] Insurance:SELF PAY [facility] Number: Effective Repository Date:2018-05-04 08/12/2018 PAVITHRA H [id number] Primary PAVITHRA H CHANDOB: Pamela BLAINE Insurance:MEDICARE [id number] Health A [facility] [address]Rul: (330) Number: Repository [phone] () [id number] Date:2018-08-12 08/12/2018 Secondary PAVITHRA H CHANDOB: Pamela Insurance:MEDICAIDPol [id number] [facility] icy Number: Hospital [id number] Repository Date:2018-08-12 08/12/2018 Tertiary NOT GIVENUNK [facility] Insurance:SELF PAY [facility] Number: Effective Repository Date:2018-08-12 08/12/2018 PAVITHRA H [id number] Primary PAVITHRA H CHANDOB: [facility] BLAINE Insurance:MEDICARE [id number] Health A [facility] [address]Icb: (330) Number: Repository [phone] () [id number] Date:2018-08-12 08/12/2018 Secondary PAVITHRA H CHANDOB: [facility] Insurance:MEDICAIDPol [id number] Community icy Number: Hospital [id number] Repository Date:2018-08-12 08/12/2018 Tertiary NOT GIVENUNK Pamela Insurance:SELF PAY [facility] Number: Effective Repository Date:2018-08-12 08/12/2018 PAVITHRA H [id number] Primary PAVITHRA H CHANDOB: [facility] BLAINE Insurance:MEDICARE [id number][facility] [place] [address]Mpe: (330) Number: Repository [phone] () [id number] Date:2018-08-12 08/12/2018 Secondary PAVITHRA H CHANDOB: [place] Insurance:MEDICAIDPol [id number] [facility] icy Number: Hospital [id number] Repository Date:2018-08-12 08/12/2018 Tertiary NOT GIVENUNK Pamela Insurance:SELF PAY Community [facility] Number: Effective Repository Date:2018-08-12 08/12/2018 PAVITHRA Rodríguez [id number] Primary PAVITHRA H CHANDOB: Pamela BLAINE Insurance:MEDICARE [id number] [place] PART A [facility] [address]Kng: (330) Number: Repository [phone] () [id number] Date:2018-08-12 08/12/2018 Secondary PAVITHRA H CHANDOB: Pamela Insurance:MEDICAIDPol [id number] [facility] icy Number: Hospital [id number] Repository Date:2018-08-12 08/12/2018 Tertiary NOT GIVENUNK Pamela Insurance:SELF PAY [facility] Number: Effective Repository Date:2018-08-12 08/12/2018 PAVITHRA Rodríguez [id number] Primary PAVITHRA H CHANDOB: Pamela BLAINE Insurance:MEDICARE [id number] Health A [facility] [address]340Fph: (330) Number: Repository [phone] () [id number] Date:2018-08-12 08/12/2018 Secondary PAVITHRA H CHANDOB: Pamela Insurance:MEDICAIDPol [id number] [facility] icy Number: Hospital [id number] Repository Date:2018-08-12 08/12/2018 Tertiary NOT GIVENUNK Pamela Insurance:SELF PAY Community [facility] Number: Effective Repository Date:2018-08-12 08/12/2018 PAVITHRA Rodríguez [id number] Primary PAVITHRA H CHANDOB: [facility] BLAINE Insurance:MEDICARE [id number] [place] PART A [facility] [address]Lci: (330) Number: Repository [phone] () [id number] Date:2018-08-12 08/12/2018 Secondary PAVITHRA H CHANDOB: Pamela Insurance:MEDICAIDPol [id number] [facility] icy Number: Hospital [id number] Repository Date:2018-08-12 08/12/2018 Tertiary NOT GIVENUNK Pamela Insurance:SELF PAY Community [facility] Number: Effective Repository Date:2018-08-12 08/12/2018 PAVITHRA H [id number] Primary PAVITHRA H CHANDOB: Pamela BLAINE Insurance:MEDICARE [id number]'s Daughters Medical Center [place] [address]Cop: (330) Number: Repository [phone] () [id number] Date:2018-08-12 08/12/2018 Secondary PAVITHRA H CHANDOB: Pamela Insurance:MEDICAIDPol [id number] Community icy Number: Hospital [id number] Repository Date:2018-08-12 08/12/2018 Tertiary NOT GIVENUNK [facility] Insurance:SELF PAY [facility] Hospital Number: Effective Repository Date:2018-08-12 08/07/2018 PAVITHRA H [id number] Primary PAVITHRA H CHANDOB: Pamela BLAINE Insurance:MEDICARE [id number]'s Daughters Medical Center [place] [address]Kxd: (330) Number: Repository [phone] () [id number] Date:2018-08-07 08/07/2018 Secondary PAVITHRA H CHANDOB: [facility] Insurance:MEDICAIDPol [id number] Community icy Number: Hospital [id number] Repository Date:2018-08-07 08/07/2018 Tertiary NOT GIVENUNK [facility] Insurance:SELF PAY [facility] Number: Effective Repository Date:2018-08-07 07/28/2018 PAVITHRA H [id number] Primary PAVITHRA H CHANDOB: [facility] BLAINE Insurance:MEDICARE [id number]'s Daughters Medical Center [place] [address]Iuu: (330) Number: Repository [phone] () [id number] Date:2018-07-28 07/28/2018 Secondary PAVITHRA H CHANDOB: Pamela Insurance:MEDICAIDPol [id number] [facility] icy Number: Hospital [id number] Repository Date:2018-07-28 07/28/2018 Tertiary NOT GIVENUNK Pam[place] Insurance:SELF PAY Community [facility] Number: Effective Repository Date:2018-07-28 07/28/2018 PAVITHRA H [id number] Primary PAVITHRA H CHANDOB: Pamela BLAINE Insurance:MEDICARE [id number] [facility] matthias MILLER PART A [facility] [address]Hej: (246) Number: Repository [phone] () [id number] Date:2018-01-11 07/28/2018 Secondary PAVITHRA H CHANDOB: [place] Insurance:MEDICAIDPol [id number] [facility] icy Number: Hospital [id number] Repository Date:2018-01-11 07/28/2018 Tertiary NOT GIVENUNK Pam[place] Insurance:SELF PAY [facility] Number: Effective Repository Date:2018-07-27 07/26/2018 Pavithra ChanDOB: Primary Pavithra ChanDOB: [facility] Insurance:MedicarePol [id number] [employer] icy Number: Effective [facility] [place] [facility]: [address]Tzb: () 07/26/2018 Secondary Pavithra ChanDOB: [facility] Insurance:MedicarePol [id number] System icy Number: Effective Repository Date: 07/26/2018 Tertiary Pavithra ChanDOB: [facility] Insurance:MedicaidPol [id number] System icy Number: Effective Repository Date: 07/19/2018 Pavithra ChanDOB: Primary Pavithra ChanDOB: [facility] Insurance:MedicarePol [id number] [employer] icy Number: Effective Repository [place] Date: [address]Eod: () 07/19/2018 Secondary Pavithra ChanDOB: [facility] Insurance:MedicarePol [id number] System icy Number: Effective Repository Date: 07/19/2018 Tertiary Pavithra ChanDOB: [facility] Insurance:MedicaidPol [id number] System icy Number: Effective Repository Date: 07/11/2018 PAVITHRA H CHANDOB: Primary PAVITHRA H CHANDOB: [place] Insurance:[facility] [id number] Repository [place] Number: [place] [address]Pwq: [phone] [id number] [address]Lbc: () Date:Plan Name:Health 263 (HP) 07/11/2018 Secondary PAVITHRA FIERROOB: [employer] Insurance:MedicarePol [id number] Hospitals icy Number: 6 [address] Repository [id number] [place] Date:Plan Name:[facility] [address]Gds: (330) A [phone] (HP) 07/11/2018 Tertiary PAVITHRA FIERROOB: [place] Insurance:MedicarePol [id number] [facility] icy Number: 6 [address] Repository [id number] [place] Date:Plan Name:[facility] [address]Uwp: (330) B 263174 (HP) 07/11/2018 Tertiary PAVITHRA FIERROOB: [place] Insurance:MedicaidPol [id number] [facility] icy Number: 6 [address] Repository [id number] [place] Date:Plan [address]Gyk: (330) Name:Health [address] () [address], [place] [address]GQ: 06/30/2018 PAVITHRA Rodríguez [id number] [facility]:SELF PAY [facility] [address]Vte: (330) Number: Effective Repository [phone] () Date:2017-09-14 06/17/2018 PAVITHRA FIERROOB: Primary PAVITHRA FIERROOB: [facility] [id number] Insurance:MEDICARE A [id number] [facility] AND BPolicy Number: 6 [place], [place] [id number] [facility] [address]Fow: (330) Date:5452-84-44Jikf 90[address]Gor: (330) Repository [phone] Name:[facility] 263 () (HP) () 06/17/2018 Secondary PAVITHRA FIERROOB: [facility] [id number] [place] icy Number: 6 [facility] [id number] [facility] Date:7533-25-58Zseu [address]Psx: (330) Repository Name:[address]DRA [phone] (HP) 06/17/2018 PAVITHRA FIERROOB: Primary PAVITHRA H CHANDOB: [facility] Insurance:MEDICARE A [id number] [facility] AND BPolicy Number: 6 [place], [place] [id number] [place] Center [address]Glz: (330) Date:2877-20-44Lunm [address]Slo: (330) Repository [phone] Name:CARE [id number] (HP) (HP) (WP) 06/17/2018 Secondary PAVITHRA H CHANDOB: [facility] Insurance:MEDICAIDPol [id number] [place] icy Number: 6 [facility] [id number] [place], [place] Center Date:3283-29-25Ykxe [address]Bwx: (330) Repository Name:[address] [phone] (HP) 06/17/2018 PAVITHRA Rodríguez CHANDOB: Primary PAVITHRA H CHANDOB: [facility] [id number] Insurance:MEDICARE A [id number] [facility] AND BPolicy Number: 6 [place], [place] [id number] [facility] [place] Center [address]Mbn: (330) Date:5784-03-27Vqre [address]Mjc: (330) Repository [phone] Name:CARE [phone] (HP) (HP) (WP) 06/17/2018 Secondary PAVITHRA H CHANDOB: [facility] Insurance:MEDICAIDPol [id number] [place] icy Number: 6 [facility] [id number] [place], [place] Center Date:2364-15-86Cqwj [address]Wxk: (330) Repository Name:S[address]A [phone] (HP) 06/10/2018 PAVITHRA H CHANDOB: Primary PAVITHRA H CHANDOB: [place] [id number] Insurance:[facility] [id number] Hospitals [place] RecipientPolicy 6 [place] Repository [place], [place] Number: [place] [address]Uql: (314) [id number] [address]Pdt: (HP) Date:Plan Name:Health (HP) 06/10/2018 Secondary PAVITHRA FIERROOB: [facility] Insurance:MedicarePol [id number] Hospitals icy Number: 6 [address] Repository [id number] [place] Date:Plan Name:[facility] [address]Vzv: (330) A 263174 (HP) 06/10/2018 Tertiary PAVITHRA FIERROOB: [place] Insurance:MedicarePol [id number] Hospitals icy Number: 6 [address] Repository [id number] [place] Date:Plan Name:[facility] [address]Joi: (330) B 263174 (HP) 06/10/2018 Tertiary PAVITHRA FIERROOB: [place] Insurance:MedicaidPol [id number] [facility] icy Number: 6 [address] Repository [id number] [place] Date:Plan [address]Eym: (330) Name:[facility] () [address], [place] [address]UU: 06/10/2018 PAVITHRA FIERROOB: Primary PAVITHRA FIERROOB: [place] Insurance:[facility] [id number] [facility] RecipientPolicy 6 CANTEBERRY Repository [place], [place] Number: [place] [address]Tlm: 330 [id number] 14344Otc: (HP) Date:Plan Name:Health (HP) 06/10/2018 Secondary PAVITHRA FIERROOB: University Insurance:MedicarePol [id number] Hospitals icy Number: 6 CANTEBERRY Repository [id number] [place] Date:Plan Name:Mca [id number]: (330) A [phone] (HP) 06/10/2018 Tertiary PAVITHRA FIERROOB: University Insurance:MedicarePol [id number] Hospitals icy Number: 6 CANTEBERRY Repository [id number] [place], [place] Date:Plan Name:Ania [id number]: (330) B [phone] () 06/10/2018 Tertiary PAVITHRA H CHANDOB: University Insurance:MedicaidPol [id number] Hospitals icy Number: 6 CARO CENTEREBERRY Repository [id number] [place], [place] Date:Plan [address]Kln: (330) Name:[phone] (HP) [place], [place] [address]SW: 06/09/2018 PAVITHRA H [id number] Primary PAVITHRA H CHANDOB: [place] Insurance:MEDICARE [id number] [place] PART A [facility] [address]Wee: (330) Number: Repository [phone] () [id number] Date:2018-06-09 06/09/2018 Secondary PAVITHRA H CHANDOB: [place] Insurance:MEDICAIDPol [id number] On License Of [facility] icy Number: Hospital [id number] Repository Date:2018-06-09 06/09/2018 Tertiary NOT GIVENUNK [place] Insurance:SELF PAY [facility] Number[facility] Effective Repository Date:2018-06-09 06/09/2018 PAVITHRA H [id number] Primary PAVITHRA H CHANDOB: [place] Insurance:MEDICARE [id number] [place] [facility] [address]Ygs: (330) Number: Repository [phone] () [id number] Date:2018-05-24 06/09/2018 Secondary PAVITHRA H CHANDOB: [place] Insurance:MEDICAIDPol [id number] On License Of [facility] icy Number: Hospital [id number] Repository Date:2018-05-24 06/09/2018 Tertiary NOT GIVENUNK [place] Insurance:SELF PAY On License [facility] Number: Effective Repository Date:2018-06-09 06/02/2018 PAVITHRA H [id number] Primary PAVITHRA H CHANDOB: [place] Insurance:MEDICARE [id number] [place] [facility] 189[address]Iik: (330) Number: Repository [phone] () [id number] Date:2002-12-12 06/02/2018 Secondary PAVITHRA H CHANDOB: [place] Insurance:MEDICAIDPol [id number] Community icy Number: Hospital [id number] Repository Date:2017-12-12 06/02/2018 Tertiary NOT GIVENUNK [place] Insurance:SELF PAY [facility] Number: Effective Repository Date:2017-12-29 06/02/2018 PAVITHRA H [id number] Primary PAVITHRA H CHANDOB: [place] Insurance:MEDICARE [id number] [place] [address]Zay: (330) Number: Repository [phone] () [id number] Date:2018-05-23 06/02/2018 Secondary PAVITHRA H CHANDOB: [place] Insurance:MEDICAIDPol [id number] On License Of [facility] icy Number: Hospital [id number] Repository Date:2018-05-23 06/02/2018 Tertiary NOT GIVENUNK [place] Insurance:SELF PAY On License [facility] Number: Effective Repository Date:2018-05-23 06/02/2018 PAVITHRA H [id number] Primary PAVITHRA H CHANDOB: [place] Insurance:MEDICARE [id number] [facility] [address]Ozq: (330) Number: Repository [phone] () [id number] Date:2018-05-23 06/02/2018 Secondary PAVITHRA H CHANDOB: [place] Insurance:MEDICAIDPol [id number] On License Of [facility] icy Number: Hospital [id number] Repository Date:2018-05-23 06/02/2018 Tertiary NOT GIVENUNK [place] Insurance:SELF PAY On License [facility] Number: Effective Repository Date:2018-06-02 05/20/2018 Pavithra ChanDOB: Primary Pavithra ChanDOB: [facility] [id number] Insurance:MedicarePol [id number] System [place] ic Number: Effective Repository [place], [place] Date: [address]Ked: () 05/20/2018 Secondary Pavithra ChanDOB: [facility] Insurance:MedicarePol [id number] System icy Number: Effective Repository Date: 05/20/2018 Tertiary Pavithra ChanDOB: [facility] Insurance:MedicaidPol [id number] System icy Number: Effective Repository Date: 05/19/2018 PAVITHRA H [id number] Primary PAVITHRA H CHANDOB: [place] Insurance:MEDICARE [id number] [place] [facility] [address]Ihq: (330) Number: Repository [phone] () [id number] Date:2018-03-28 05/19/2018 Secondary PAVITHRA H CHANDOB: [place] Insurance:MEDICAIDPol [id number] On License Of [facility] icy Number: Hospital [id number] Repository Date:2018-03-28 05/19/2018 Tertiary NOT GIVENUNK [place] Insurance:SELF PAY On License [facility] Number: Effective Repository Date:2018-03-28 05/19/2018 PAVITHRA H [id number] Primary PAVITHRA H CHANDOB: [place] Insurance:MEDICARE [id number] [facility] A [facility] [address]Beq: (330) Number: Repository [phone] () [id number] Date:2018-03-28 05/19/2018 Secondary PAVITHRA H CHANDOB: [place] Insurance:MEDICAIDPol [id number] On License Of [facility] icy Number: Hospital [id number] Repository Date:2018-03-28 05/19/2018 Tertiary NOT GIVENUNK [place] Insurance:SELF PAY On License [facility] Number: Effective Repository Date:2018-05-19 05/12/2018 PAVITHRA H [id number] Primary PAVITHRA H CHANDOB: [place] Insurance:MEDICARE [id number] [facility] A [facility] [address]689Jzl: (330) Number: Repository [phone] () [id number] Date:2018-05-12 05/12/2018 Secondary PAVITHRA H CHANDOB: [place] Insurance:MEDICAIDPol [id number] On License Of [facility] icy Number: Hospital [id number] Repository Date:2018-05-12 05/12/2018 Tertiary NOT GIVENUNK [place] Insurance:SELF PAY On License [facility] Hospital Number: Effective Repository Date:2018-05-12 05/12/2018 PAVITHRA PAINTER1916 Primary PAVITHRA FIERROOB: [place] Insurance:MEDICARE [id number] [facility] [address]Uro: (330) Number: Repository [phone] () [id number] Date:2018-03-30 05/12/2018 Secondary PAVITHRA FIERROOB: [place] Insurance:MEDICAIDPol [id number] On License Of [facility] icy Number: [facility] [id number] Repository Date:2018-03-30 05/12/2018 Tertiary NOT GIVENUNK [place] Insurance:SELF PAY [facility] Number: Effective Repository Date:2018-05-12 05/06/2018 PAVITHRA FIERROOB: Primary PAVITHRA FIERROOB: University [id number] Insurance:[facility] [id number] [address] Number: [place], [place] [address]Qmq: [phone]) [id number] [phone]: () Date:Plan Name:[facility] 263 () 05/06/2018 Secondary PAVITHRA FIERROOB: University Insurance:MedicarePol [id number] [facility] icy Number: 6 CARO CENTEREBERRY [facility] [id number] [facility], [place] Date:Plan Name:[facility] 10968Blp: (330) A 263174 () 05/06/2018 Tertiary PAVITHRA FIERROOB: University Insurance:MedicarePol [id number] [facility] icy Number: 6 [facility] [id number] [place] Date:Plan Name:[facility] 82889Ogt: (330) B 263174 () 05/06/2018 Tertiary PAVITHRA FIERROOB: University Insurance:MedicaidPol [id number] [facility] icy Number: 6 [facility] [id number] [place] Date:Plan [address]Qyg: (330) Name:Health [phone] (HP) [place], [place] [address]FD: 04/26/2018 Pavithra ChanDOB: Primary Pavithra ChanDOB: [facility] Insurance:MedicarePol [id number] System [place] icy Number: Effective [place] Date: [address]Qlo: () 04/26/2018 Secondary Pavithra ChanDOB: [facility] Insurance:MedicarePol [id number] System icy Number: Effective Repository Date: 04/26/2018 Tertiary Pavithra ChanDOB: [facility] Insurance:MedicaidPol [id number] System icy Number: Effective Repository Date: 04/21/2018 Pavithra ChanDOB: Primary Pavithra ChanDOB: [facility] Health Insurance:MedicarePol [id number] System [place] icy Number: [place] Date: [address]Fcq: () 04/21/2018 Secondary Pavithra ChanDOB: [facility] Insurance:MedicarePol [id number] System icy Number: Effective Repository Date: 04/21/2018 Tertiary Pavithra ChanDOB: [facility] Insurance:MedicaidPol [id number] System icy Number: Effective Repository Date: 04/21/2018 Pavithra ChanDOB: Primary Pavithra ChanDOB: [facility] Health Insurance:MedicarePol [id number] System [place] icy Number: Effective [facility] [place] Date: [address]Zeb: () 04/21/2018 Secondary Pavithra ChanDOB: [facility] Insurance:MedicarePol [id number] System icy Number: Effective Repository Date: 04/21/2018 Tertiary Pavithra ChanDOB: [facility] Insurance:MedicaidPol [id number] System icy Number: Effective Repository Date: 04/12/2018 PAVITHRA H CHANDOB: Primary PAVITHRA H CHANDOB: [place] Insurance:[facility] [id number] [place], [place] [address]EBERRY Repository [place] Number: [place] [address]Rxq: [phone]) [id number] [address]Fag: (HP) Date:Plan Name:Health [id number] (HP) 04/12/2018 Secondary PAVITHRA FIERROOB: University Insurance:MedicarePol [id number] Hospitals icy Number: 6 CANTEBERRY Repository [id number] [facility], [place] Date:Plan Name:[facility] [address]Cpt: (330) A [phone] (HP) 04/12/2018 Tertiary PAVITHRA FIERROOB: University [facility] [id number] [facility] icy Number: 6 CANTEBERRY Repository [id number] [facility] [place] Date:Plan Name:[facility] 12459Pcs: (330) B 263174 (HP) 04/12/2018 Tertiary PAVITHRA FIERROOB: University [facility] [id number] [facility] icy Number: 6 CANTEBERRY Repository [id number] [facility], [place] Date:Plan [address]Nfr: (330) Name:Health [phone] (HP) [place], [place] [address]FX: 04/07/2018 PAVITHRA PAINTER1916 Primary PAVITHRA FIERROOB: [place] Insurance:MEDICARE [id number] [place] [facility] [address]Ddi: (330) Number: Repository [phone] () [id number] Date:2018-03-04 04/07/2018 Secondary PAVITHRA FIERROOB: [place] Insurance:MEDICAIDPol [id number] On License Of [facility] icy Number: Hospital [id number] Repository Date:2018-03-04 04/07/2018 Tertiary NOT GIVENUNK [place] Insurance:SELF PAY [facility] Hospital Number: Effective Repository Date:2018-04-07 03/17/2018 PAVITHRA Rodríguez [id number] Primary PAVITHRA FIERROOB: [place] Insurance:MEDICARE [id number] [place] [facility] 150[address]Iqs: (330) Number: Repository [phone] () [id number] Date:2018-03-09 03/17/2018 Secondary PAVITHRA Rodríguez CHANDOB: [place] Insurance:MEDICAIDPol [id number] On License Of [facility] icy Number: Hospital [id number] Repository Date:2018-03-09 03/17/2018 Tertiary NOT GIVENUNK [place] Insurance:SELF PAY On License [facility] Number: Effective Repository Date:2018-03-09 03/17/2018 PAVITHRA Rodríguez [id number] Primary PAVITHRA H CHANDOB: [place] Insurance:MEDICARE [id number] [facility] [address]Mtx: (330) Number: Repository [phone] () [id number] Date:2018-03-09 03/17/2018 Secondary PAVITHRA Rodríguez CHANDOB: [place] Insurance:MEDICAIDPol [id number] On License Of [facility] icy Number: Hospital [id number] Repository Date:2018-03-09 03/17/2018 Tertiary NOT GIVENUNK [place] Insurance:SELF PAY On License [facility] Number: Effective Repository Date:2018-03-17 03/15/2018 PAVITHRA Rodríguez [id number] Primary PAVITHRA Rodríguez CHANDOB: [place] Insurance:MEDICARE [id number] [place] [facility] 37743Ovx: (330) Number: Repository [phone] () [id number] Date:2018-03-08 03/15/2018 Secondary PAVITHRA Rodríguez CHANDOB: [place] Insurance:MEDICAIDPol [id number] On License Of [facility] icy Number: [facility] [id number] Repository Date:2018-03-08 03/15/2018 Tertiary NOT GIVENUNK [place] Insurance:SELF PAY On License [facility] Number: Effective Repository Date:2018-03-15 03/10/2018 PAVITHRA H CHANDOB: Primary PAVITHRA H CHANDOB: [place] [id number] Insurance:Transplants [id number] [place] [address] Number: [place], [place] [address]Lpn: [phone]) [id number] [phone]: () Date:Plan Name:[facility] [phone] () 03/10/2018 Secondary PAVITHRA H CHANDOB: University Insurance:MedicarePol [id number] Hospitals icy Number: 6 CANTEBERRY Repository [id number] [facility], [place] Date:Plan Name:[facility] [address]Ktn: (330) A [phone] () 03/10/2018 Tertiary PAVITHRA H CHANDOB: University Insurance:MedicarePol [id number] Hospitals icy Number: 6 CANTEBERRY Repository [id number] [facility], [place] Date:Plan Name:[place] [id number]: (330) B [phone] () 03/10/2018 Tertiary PAVITHRA H CHANDOB: University Insurance:MedicaidPol [id number] Hospitals icy Number: 6 CANTEBERRY Repository [id number] [place] Date:Plan [address]Fob: (330) Name:Health [phone] () [place], [place] [address]EP: 03/08/2018 PAVITHRA Rodríguez [id number] Primary PAVITHRA H CHANDOB: [place] Insurance:MEDICARE [id number] [place] [facility] 89[address]Pqm: (330) Number: Repository [phone] () [id number] Date:2018-02-24 03/08/2018 Secondary PAVITHRA H CHANDOB: [place] Insurance:MEDICAIDPol [id number] On License Of [facility] icy Number: Hospital [id number] Repository Date:2018-02-24 03/08/2018 Tertiary NOT GIVENUNK [place] Insurance:SELF PAY On License [facility] Number: Effective Repository Date:2018-03-08 03/08/2018 PAVITHRA H [id number] Primary PAVITHRA H CHANDOB: [place] Insurance:MEDICARE [id number] [place] [facility] 130[address]Dmi: (330) Number: Repository [phone] () [id number] Date:2018-03-04 03/08/2018 Secondary PAVITHRA H CHANDOB: [place] Insurance:MEDICAIDPol [id number] Community icy Number: Hospital [id number] Repository Date:2018-03-04 03/08/2018 Tertiary NOT GIVENUNK [place] Insurance:SELF PAY [facility] Number: Effective Repository Date:2018-03-08 03/04/2018 PAVITHRA Rodríguez [id number] Primary PAVITHRA H CHANDOB: [place] Insurance:MEDICARE [id number] [place] [facility] 719[address]Wfl: (330) Number: Repository [phone] () [id number] Date:2018-03-04 03/04/2018 Secondary PAVITHRA H CHANDOB: [place] Insurance:MEDICAIDPol [id number] Community icy Number: Hospital [id number] Repository Date:2018-03-04 03/04/2018 Tertiary NOT GIVENUNK [place] Insurance:SELF PAY On License [facility] Number: Effective Repository Date:2018-03-04 03/04/2018 PAVITHRA PAINTER1916 Primary PAVITHRA H CHANDOB: [place] Insurance:MEDICARE [id number] [facility] [address]Lww: (330) Number: Repository [phone] () [id number] Date:2018-03-02 03/04/2018 Secondary PAVITHRA H CHANDOB: [place] Insurance:MEDICAIDPol [id number] On License Of [facility] icy Number: Hospital [id number] Repository Date:2018-03-02 03/04/2018 Tertiary NOT GIVENUNK [place] Insurance:SELF PAY On License [facility] Number: Effective Repository Date:2018-03-04 03/03/2018 PAVITHRA Rodríguez [id number] Primary PAVITHRA H CHANDOB: [place] Insurance:MEDICARE [id number] [place] [facility] [address]Hpr: (330) Number: Repository [phone] () [id number] Date:2018-02-24 03/03/2018 Secondary PAVITHRA H CHANDOB: [place] Insurance:MEDICAIDPol [id number] On License Of [facility] icy Number: Hospital [id number] Repository Date:2018-02-24 03/03/2018 Tertiary NOT GIVENUNK [place] Insurance:SELF PAY Community [facility] Hospital Number: Effective Repository Date:2018-03-03 03/03/2018 PAVITHRA H [id number] Primary PAVITHRA H CHANDOB: [place] Insurance:MEDICARE [id number] [facility] [address]Lpi: (330) Number: Repository [phone] () [id number] Date:2018-02-11 03/03/2018 Secondary PAVITHRA H CHANDOB: [place] Insurance:MEDICAIDPol [id number] Community icy Number: Hospital [id number] Repository Date:2018-02-11 03/03/2018 Tertiary NOT GIVENUNK [place] Insurance:SELF PAY Community [facility] Number: Effective Repository Date:2018-02-11 03/01/2018 PAVITHRA H [id number] Primary PAVITHRA H CHANDOB: [place] Insurance:MEDICARE [id number] Health A [facility] [address]13Axb: (330) Number: Repository [phone] () [id number] Date:2018-03-01 03/01/2018 Secondary PAVITHRA H CHANDOB: [place] Insurance:MEDICAIDPol [id number] Community icy Number: Hospital [id number] Repository Date:2018-03-01 03/01/2018 Tertiary NOT GIVENUNK [place] Insurance:SELF PAY Community [facility] Number: Effective Repository Date:2018-03-01 03/01/2018 PAVITHRA H [id number] Primary PAVITHRA H CHANDOB: [place] Insurance:MEDICARE [id number] [place] [facility] [address]Rei: (330) Number: Repository [phone] () [id number] Date:2018-02-24 03/01/2018 Secondary PAVITHRA H CHANDOB: [place] Insurance:MEDICAIDPol [id number] On License Of [facility] icy Number: Hospital [id number] Repository Date:2018-02-24 03/01/2018 Tertiary NOT GIVENUNK [place] Insurance:SELF PAY Community [facility] Number: Effective Repository Date:2018-03-01 02/24/2018 PAVITHRA H [id number] Primary PAVITHRA H CHANDOB: [place] Insurance:MEDICARE [id number] [place] [facility] [address]Fgj: Number: Repository [phone] [id number] (HP) Date:2018-02-23 02/24/2018 Secondary PAVITHRA H CHANDOB: [place] Insurance:MEDICAIDPol [id number] On License Of [facility] icy Number: Hospital [id number] Repository Date:2018-02-23 02/24/2018 Tertiary NOT GIVENUNK [place] Insurance:SELF PAY [facility] Number: Effective Repository Date:2018-02-24 02/23/2018 PAVITHRA H CHANDOB: Primary PAVITHRA H CHANDOB: [facility] Insurance:MEDICARE A [id number] [facility] Number: 6 [place], [place] [id number] [facility] [address]Hyy: (330) Date:2404-01-03Kbzx 21928Azq: (330) Repository [phone] Name:CARE [phone] () (HP) (WP) 02/23/2018 Secondary PAVITHRA H CHANDOB: [facility] Insurance:MEDICAIDPol [id number] [place] ic Number: 6 [facility] [id number] [facility] Date:3105-33-80Rphp 84035Hxh: (330) Repository Name:SANDRA [phone] () 02/23/2018 PAVITHRA H CHANDOB: Primary PAVITHRA H CHANDOB: [facility] [id number] Insurance:MEDICARE A [id number] [facility] AND BPolicy Number: 6 [place], [place] [id number] [facility] [address]Naj: (330) Date:8139-22-67Mprb 73739Qho: (330) Repository [phone] Name:CARE [phone] (HP) (HP) (WP) 02/23/2018 Secondary PAVITHRA H CHANDOB: [facility] Insurance:MEDICAIDPol [id number] [place] icy Number: 6 [facility] [id number] [facility] [place] Center Date:2726-66-02Ldan [address]Neq: (330) Repository Name:[facility] [phone] () 02/21/2018 PAVITHRA FIERROOB: Primary PAVITHRA FIERROOB: [place] Insurance:[facility] [id number] [facility] 6 CARO CENTEREBERRY Repository [place] Number: [place], [place] [address]Pya: [phone]) [id number] [address]Xtv: () Date:Plan Name:[facility] 263 () 02/21/2018 Secondary PAVITHRA FIERROOB: [place] Insurance:MedicarePol [id number] [facility] icy Number: 6 [facility] Repository [id number] [facility], [place] Date:Plan Name:[facility] [address]327Vvu: (330) A [phone] () 02/21/2018 Tertiary PAVITHRA FIERROOB: [place] Insurance:MedicarePol [id number] [facility] icy Number: 6 [facility] [id number] [facility], [place] Date:Plan Name:[facility] [address]Ykn: (330) B [phone] () 02/21/2018 Tertiary PAVITHRA FIERROOB: [place] Insurance:MedicaidPol [id number] [facility] icy Number: 6 [facility] [id number] [facility], [place] Date:Plan [address]Hsu: (330) Name:Health [address] () [place], [place] [address]LA: 02/17/2018 PAVITHRA Rodríguez [id number] Primary PAVITHRA FIERROOB: [facility] Insurance:MEDICARE [id number] [facility] [facility] [address]Iyu: (330) Number: Repository [phone] () [id number] Date:2018-01-11 02/17/2018 Secondary PAVITHRA H CHANDOB: [place] Insurance:MEDICAIDPol [id number] Community icy Number: Hospital [id number] Repository Date:2018-01-11 02/17/2018 Tertiary NOT GIVENUNK [place] Insurance:SELF PAY [facility] Number: Effective Repository Date:2018-01-11 02/17/2018 PAVITHRA Rodríguez [id number] Primary PAVITHRA Rodríguez CHANDOB: [place] Insurance:MEDICARE [id number] Health A [facility] [address]49Gha: (330) Number: Repository [phone] () [id number] Date:2018-01-11 02/17/2018 Secondary PAVITHRA Rodríguez CHANDOB: [place] Insurance:MEDICAIDPol [id number] Community icy Number: Hospital [id number] Repository Date:2018-01-11 02/17/2018 Tertiary NOT GIVENUNK [place] Insurance:SELF PAY [facility] Number: Effective Repository Date:2018-02-17 02/17/2018 PAVITHRA Rodríguez [id number] Primary PAVITHRA Rodríguez CHANDOB: [place] Insurance:MEDICARE [id number] Health A [facility] [address]Yel: Number: Repository [phone] [id number] () Date:2018-02-10 02/17/2018 Secondary PAVITHRA Rodríguez CHANDOB: Pamela Insurance:MEDICAIDPol [id number] Community icy Number: Hospital [id number] Repository Date:2018-02-10 02/17/2018 Tertiary NOT GIVENUNK [place] Insurance:SELF PAY [facility] Number: Effective Repository Date:2018-02-25 02/10/2018 PAVITHRA Rodríguez [id number] Primary NOT GIVENUNK [place] Insurance:SELF PAY [facility] [address]Liu: Number: Effective Repository [phone] Date:2018-02-10 () 02/10/2018 PAVITHRA Rodríguez [id number] Primary PAVITHRA Rodríguez CHANDOB: [place] Insurance:MEDICARE [id number] A [facility] [address]Unc: Number: Repository [phone] [id number] -2 (HP) Date:2018-01-20 02/10/2018 Secondary PAVITHRA FIERROOB: [place] Insurance:MEDICAIDPol [id number] On License Of [facility] icy Number: Hospital [id number] Repository Date:2018-01-20 02/10/2018 Tertiary NOT GIVENUNK [place] Insurance:SELF PAY [facility] Number: Effective Repository Date:2018-02-10 02/10/2018 PAVITHRA PAINTER1916 Primary PAVITHRA Rodríguez CHANDOB: Pamela [place] Insurance:MEDICARE [id number] [place] PART [place] [facility] [address]Nhi: Number: Repository [phone] [id number] -2 (HP) Date:2018-02-04 02/10/2018 Secondary PAVITHRA FIERROOB: [place] Insurance:MEDICAIDPol [id number] On License [facility] icy Number: Hospital [id number] Repository Date:2018-02-04 02/10/2018 Tertiary NOT GIVENUNK [place] Insurance:SELF PAY [facility]: Effective Repository Date:2018-02-10 02/03/2018 PAVITHRA Rodríguez CHANDOB: Primary PAVITHRA Rodríguez CHANDOB: [place] [id number] Insurance:[facility] [id number] [facility] [address] [place], [place] Number: [place], [place] [address]Pmz: [phone]) [id number] [address]Vki: () Date:Plan Name:[facility] 174 () 02/03/2018 Secondary PAVITHRA Rodríguez CHANDOB: University Insurance:MedicarePol [id number] [facility] icy Number: 6 [place] [address]ository [id number] [place] Date:Plan Name:[facility] [address]Ers: [phone]) [phone] () 02/03/2018 Tertiary PAVITHRA Rodríguez CHANDOB: University Insurance:MedicarePol [id number] [facility] icy Number: [address] [facility] [id number] [place] Date:Plan Name:[facility] [address]Nhe: [phone] (HP) 02/03/2018 Tertiary PAVITHRA FIERROOB: University Insurance:MedicaidPol [id number] Hospitals icy Number: 6 [address] Repository [id number] [place] Date:Plan [phone]: [phone]) Name:[phone] (HP) [address] [place] [address] 69[address]ZN: 02/03/2018 PAVITHRA PAINTER1916 Primary PAVITHRA Rodríguez CHANDOB: [place] Insurance:MEDICARE [id number] [place] PART [place] [facility] [address]Dnn: Number: Repository [phone] [id number] -2 (HP) Date:2018-01-25 02/03/2018 Secondary PAVITHRA Rodríguez CHANDOB: [place] Insurance:MEDICAIDPol [id number] On License [facility] icy Number: Hospital [id number] Repository Date:2018-01-25 02/03/2018 Tertiary NOT GIVENUNK [place] Insurance:SELF PAY On [facility] Hospital Number: Effective Repository Date:2018-02-03 02/01/2018 PAVITHRA Rodríguez [id number] Primary PAVITHRA H CHANDOB: [place] Insurance:MEDICARE [id number] [place] [facility] [address]Efh: Number: Repository [phone] [id number] -2 (HP) Date:2018-01-31 02/01/2018 Secondary PAVITHRA H CHANDOB: [place] Insurance:MEDICAIDPol [id number] On License Of [facility] icy Number: Hospital [id number] Repository Date:2018-01-31 02/01/2018 Tertiary NOT GIVENUNK [place] Insurance:SELF PAY On [facility] Hospital Number: Effective Repository Date:2018-01-31 02/01/2018 PAVITHRA Rodríguez [id number] Primary PAVITHRA Rodríguez CHANDOB: [place] Insurance:MEDICARE [id number] [place] [facility] [address]Mkh: Number: Repository [phone] [id number] -2 (HP) Date:2018-01-31 02/01/2018 Secondary PAVITHRA Rodríguez CHANDOB: [place] Insurance:MEDICAIDPol [id number] On License Of [facility] icy Number: Hospital [id number] Repository Date:2018-01-31 02/01/2018 Tertiary NOT GIVENUNK [place] Insurance:SELF PAY On [facility] Hospital Number: Effective Repository Date:2018-02-01 01/31/2018 PAVITHRA Rodríguez [id number] Primary PAVITHRA Rodríguez CHANDOB: [place] Insurance:MEDICARE [id number] [facility] [address]Tte: Number: Repository [phone] [id number] -2 (HP) Date:2018-01-11 01/31/2018 Secondary PAVITHRA FIERROOB: [place] Insurance:MEDICAIDPol [id number] On License Of [facility] icy Number: Hospital [id number] Repository Date:2018-01-11 01/31/2018 Tertiary NOT GIVENUNK [place] Insurance:SELF PAY On [facility] Hospital Number: Effective Repository Date:2018-01-31 01/25/2018 PAVITHRA Rodríguez [id number] Primary PAVITHRA Rodríguez CHANDOB: [place]IE Insurance:MEDICARE [id number]'s Daughters Medical Center [place] [address]Tgw: Number: Repository [phone] [id number] -2 (HP) Date:2018-01-25 01/25/2018 Secondary PAVITHRA Rodríguez CHANDOB: [place] Insurance:MEDICAIDPol [id number] On License Of [facility] icy Number: Hospital [id number] Repository Date:2018-01-25 01/25/2018 Tertiary NOT GIVENUNK [place] Insurance:SELF PAY On [facility] Hospital Number: Effective Repository Date:2018-01-25 01/25/2018 PAVITHRA Rodríguez [id number] Primary PAVITHRA Rodríguez CHANDOB: [place] Insurance:MEDICARE [id number] [facility] [address]Kgl: Number: Repository [phone] [id number] -2 (HP) Date:2018-01-11 01/25/2018 Secondary PAVITHRA H CHANDOB: [place] Insurance:MEDICAIDPol [id number] Community icy Number: Hospital [id number] Repository Date:2018-01-11 01/25/2018 Tertiary NOT GIVENUNK [place] Insurance:SELF PAY On [facility] Hospital Number: Effective Repository Date:2018-01-11 01/25/2018 PAVITHRA H [id number] Primary PAVITHRA H CHANDOB: [place] Insurance:MEDICARE [id number] [place] PART [place] [facility] 175[address]Axq: Number: Repository [phone] [id number] -2 (HP) Date:2018-01-11 01/25/2018 Secondary PAVITHRA H CHANDOB: [place] Insurance:MEDICAIDPol [id number] On License Of [facility] icy Number: Hospital [id number] Repository Date:2018-01-11 01/25/2018 Tertiary NOT GIVENUNK [place] Insurance:SELF PAY On [facility] Hospital Number: Effective Repository Date:2018-01-25 01/20/2018 PAVITHRA H [id number] Primary PAVITHRA H CHANDOB: [place] Insurance:MEDICARE [id number] [facility] [address]Xvk: (330) Number: Repository [phone] () [id number] Date:2002-12-12 01/20/2018 Secondary PAVITHRA H CHANDOB: [place] Insurance:MEDICAIDPol [id number] On License Of [facility] icy Number: Hospital [id number] Repository Date:2016-09-28 01/20/2018 Tertiary NOT GIVENUNK [place] Insurance:SELF PAY On License [facility] Hospital Number: Effective Repository Date:2016-12-11 01/20/2018 PAVITHRA H [id number] Primary PAVITHRA H CHANDOB: [place] Insurance:MEDICARE [id number] [place] [facility] [address]Ete: (330) Number: Repository [phone] () [id number] Date:2002-12-12 01/20/2018 Secondary PAVITHRA H CHANDOB: [place] Insurance:MEDICAIDPol [id number] On License Of [facility] icy Number: Hospital [id number] Repository Date:2016-09-28 01/20/2018 Tertiary NOT GIVENUNK [place] Insurance:SELF PAY On [facility] Hospital Number: Effective Repository Date:2018-01-20 01/11/2018 PAVITHRA PAINTER1916 Primary PAVITHRA Rodríguez CHANDOB: [place] Insurance:MEDICARE [id number] Health [facility] [address]Xcz: Number: Repository [phone] [id number] -2 (HP) Date:2017-11-10 01/11/2018 Secondary PAVITHRA Rodríguez CHANDOB: [place] Insurance:MEDICAIDPol [id number] On License Of [facility] icy Number: Hospital [id number] Repository Date:2017-11-10 01/11/2018 Tertiary NOT GIVENUNK [place] Insurance:SELF PAY On License [facility] Number: Effective Repository Date:2018-01-07 01/11/2018 PAVITHRA PAINTER1916 Primary PAVITHRA FIERROOB: [place] Insurance:MEDICARE [id number] Health [facility] [address]853Jzk: Number: Repository [phone] [id number] -2 (HP) Date:2018-01-04 01/11/2018 Secondary PAVITHRA Rodríguez CHANDOB: [place] Insurance:MEDICAIDPol [id number] On License Of [facility] icy Number: Hospital [id number] Repository Date:2018-01-04 01/11/2018 Tertiary NOT GIVENUNK [place] Insurance:SELF PAY On License [facility] Number: Effective Repository Date:2018-01-11 01/11/2018 PAVITHRA PAINTER1916 Primary PAVITHRA Rodríguez CHANDOB: [place] Insurance:MEDICARE [id number]'s Daughters Medical Center [place] [address]Fwz: Number: Repository [phone] [id number] -2 (HP) Date:2018-01-06 01/11/2018 Secondary PAVITHRA Rodríguez CHANDOB: [place] Insurance:MEDICAIDPol [id number] On License Of [facility] icy Number: Hospital [id number] Repository Date:2018-01-06 01/11/2018 Tertiary NOT GIVENUNK [place] Insurance:SELF PAY On License [facility] Number: Effective Repository Date:2018-01-11 01/06/2018 PAVITHRA Rodríguez [id number] Primary PAVITHRA FIERROOB: [place] Insurance:MEDICARE [id number] [facility] 05455Gtp: Number: Repository [phone] [id number] -2 (HP) Date:2017-12-14 01/06/2018 Secondary PAVITHRA Rodríguez CHANDOB: [place] Insurance:MEDICAIDPol [id number] On License Of [facility] icy Number: Hospital [id number] Repository Date:2017-12-14 01/06/2018 Tertiary NOT GIVENUNK [place] Insurance:SELF PAY On License [facility] Number: Effective Repository Date:2018-01-06 12/15/2017 PAVITHRA PAINTER1916 Primary PAVITHRA Rodríguez CHANDOB: [place] Insurance:MEDICARE [id number] [facility] 09387Zua: Number: Repository [phone] [id number] -2 (HP) Date:2017-12-15 12/15/2017 Secondary PAVITHRA Rodríguez CHANDOB: [place] Insurance:MEDICAIDPol [id number] On License Of [facility] icy Number: Hospital [id number] Repository Date:2017-12-15 12/15/2017 Tertiary NOT GIVENUNK [place] Insurance:SELF PAY On License [facility] Number: Effective Repository Date:2017-12-15 12/14/2017 PAVITHRA PAINTER1916 Primary PAVITHRA Rodríguez CHANDOB: [place] Insurance:MEDICARE [id number] [facility] [address]47[address]Ugf: Number: Repository [phone] [id number] -2 (HP) Date:2017-12-13 12/14/2017 Secondary PAVITHRA Rodríguez CHANDOB: [place] Insurance:MEDICAIDPol [id number] On License Of [facility] icy Number: Hospital [id number] Repository Date:2017-12-13 12/14/2017 Tertiary NOT GIVENUNK [place] Insurance:SELF PAY On License [facility] Number: Effective Repository Date:2017-12-14 12/10/2017 PAVITHRA Rodríguez CHANDOB: Primary PAVITHRA Rodríguez CHANDOB: [place] [id number] Insurance:Transplants [id number] [facility] [address] Repository [place] Number: [facility], [place] [address]Ast: [phone] [id number] [phone]: (HP) Date:Plan Name:[facility] 263 () 12/10/2017 Secondary PAVITHRA FIERROOB: University Insurance:MedicarePol [id number] [facility] icy Number: 6 [facility] Repository [id number] [place], [place] Date:Plan Name:[facility] 64[address]Zon: (330) A [phone] () 12/10/2017 Tertiary PAVITHRA FIERROOB: University [facility] [id number] [facility] icy Number: 6 [facility] Repository [id number] [facility], [place] Date:Plan Name:[facility] [address]Juc: (330) B [phone] () 12/10/2017 Tertiary PAVITHRA FIERROOB: University Insurance:[facility] [id number] [facility] icy Number: 6 [facility] Repository [id number] [place] Date:Plan [address]Vle: (330) Name:[facility] 263 () [place], [place] [address]VA: 12/10/2017 PAVITHRA PAINTER1916 Primary PAVITHRA FIERROOB: [place] Insurance:MEDICARE [id number] [place] [facility] [address]Lre: Number: Repository [phone] [id number] -2 () Date:2017-12-08 12/10/2017 Secondary PAVITHRA FIERROOB: [place] Insurance:MEDICAIDPol [id number] On License Of [facility] icy Number: Hospital [id number] Repository Date:2017-12-08 12/10/2017 Tertiary NOT GIVENUNK [place] Insurance:SELF PAY [facility] Hospital Number: Effective Repository Date:2017-12-08 12/10/2017 PAVITHRA Rodríguez [id number] Primary PAVITHRA Rodríguez CHANDOB: [place] Insurance:MEDICARE [id number] [place] [facility] 209[address]Dtg: Number: Repository [phone] [id number] -2 (HP) Date:2017-12-08 12/10/2017 Secondary PAVITHRA H CHANDOB: [place] Insurance:MEDICAIDPol [id number] On License Of [facility] icy Number: Hospital [id number] Repository Date:2017-12-08 12/10/2017 Tertiary NOT GIVENUNK [place] Insurance:SELF PAY On License [facility] Number: Effective Repository Date:2017-12-10 12/09/2017 PAVITHRA H [id number] Primary PAVITHRA H CHANDOB: [place] Insurance:MEDICARE [id number] [place] [facility] 923[address]Htq: Number: Repository [phone] [id number] -2 (HP) Date:2017-12-09 12/09/2017 Secondary PAVITHRA H CHANDOB: [place] Insurance:MEDICAIDPol [id number] Community icy Number: Hospital [id number] Repository Date:2017-12-09 12/09/2017 Tertiary NOT GIVENUNK [place] Insurance:SELF PAY On License [facility] Hospital Number: Effective Repository Date:2017-12-09 12/08/2017 PAVITHRA H [id number] Primary PAVITHRA H CHANDOB: [place] Insurance:MEDICARE [id number] [place] [facility] [address]Rua: Number: Repository [phone] [id number] -2 (HP) Date:2017-12-08 12/08/2017 Secondary PAVITHRA H CHANDOB: [place] Insurance:MEDICAIDPol [id number] On License Of [facility] icy Number: Hospital [id number] Repository Date:2017-12-08 12/08/2017 Tertiary NOT GIVENUNK [place] Insurance:SELF PAY On License [facility] Hospital Number: Effective Repository Date:2017-12-08 12/08/2017 PAVITHRA H [id number] Primary PAVITHRA H CHANDOB: [place] Insurance:MEDICARE [id number] [facility] 212[address]Rmz: Number: Repository [phone] [id number] -2 (HP) Date:2017-12-08 12/08/2017 Secondary PAVITHRA Rodríguez CHANDOB: [place] Insurance:MEDICAIDPol [id number] On License Of [facility] icy Number: Hospital [id number] Repository Date:2017-12-08 12/08/2017 Tertiary NOT GIVENUNK [place] Insurance:SELF PAY On License [facility] Number: Effective Repository Date:2017-12-08 11/30/2017 PAVITHRA Rodríguez [id number] Primary PAVITHRA H CHANDOB: [place] Insurance:MEDICARE [id number] [id number]: Number: Repository [phone] [id number] -2 (HP) Date:2017-11-30 11/30/2017 Secondary PAVITHRA H CHANDOB: [place] Insurance:MEDICAIDPol [id number] On License Of [facility] icy Number: Hospital [id number] Repository Date:2017-11-30 11/30/2017 Tertiary NOT GIVENUNK [place] Insurance:SELF PAY On License [facility] Hospital Number: Effective Repository Date:2017-11-30 11/19/2017 PAVITHRA Rodríguez [id number] Primary PAVITHRA H CHANDOB: [place] Insurance:MEDICARE [id number] [id number]: Number: Repository [phone] [id number] -2 (HP) Date:2017-11-18 11/19/2017 Secondary PAVITHRA H CHANDOB: [place] Insurance:MEDICAIDPol [id number] On License Of [facility] icy Number: Hospital [id number] Repository Date:2017-11-18 11/19/2017 Tertiary NOT GIVENUNK [place] Insurance:SELF PAY On License [facility] Number: Effective Repository Date:2017-11-18 11/17/2017 PAVITHRA H CHANDOB: Primary PAVITHRA H CHANDOB: [facility] [id number] Insurance:MEDICARE A [id number] [place] [address] Number: [address] [place] [address] [id number] [facility] [address]Bhp: (330) Date:0671-76-68Lbiw 513[address]Kdf: (330) Repository [phone] Name:CARE [phone] (HP) (HP) (WP) 11/17/2017 Secondary PAVITHRA FIERROOB: [facility] Insurance:MEDICAIDPol [id number] [place] icy Number: 6 [facility] [id number] [facility], [place] Center Date:0917-26-86Amcc [address]Iyy: (330) Repository Name:[facility] [phone] () 11/17/2017 PAVITHRA Rodríguez CHANDOB: Primary PAVITHRA Rodríguez CHANDOB: [facility] Insurance:MEDICARE A [id number] [facility] Number: 6 [place], [place] [id number] [facility] [address]Fzf: (330) Date:3801-32-82Jkga 21538Gtt: (330) Repository [phone] Name:CARE [id number] () (HP) (WP) 11/17/2017 Secondary PAVITHRA FIERROOB: [facility] Insurance:MEDICAIDPol [id number] [place] icy Number: 6 [facility] [id number] [place] Center Date:6673-32-77Mrye [address]Obm: (330) Repository Name:SANDRA [phone] () 11/10/2017 PAVITHRA FIERROOB: Primary PAVITHRA H CHANDOB: [place] Insurance:Transplants [id number] [facility] RecipientPol[facility] [address] [place], [place] Number: [place], [place] [address]Pbe: 330) [id number] [phone]: (HP) Date:Plan Name:[place] [phone] () 11/10/2017 Secondary PAVITHRA FIERROOB: [place] Insurance:MedicarePol [id number] [facility] icy Number: 6 [place] Repository [id number] [facility] [place] Date:Plan Name:[facility] [address]44[address]Bqb: (330) A [phone] (HP) 11/10/2017 Tertiary PAVITHRA FIERROOB: University Insurance:MedicarePol [id number] Hospitals icy Number: 6 [place] Repository [id number] [facility] [place] Date:Plan Name:[facility] 366[address]Wbx: (330) B [phone] (HP) 11/10/2017 Tertiary PAVITHRA FIERROOB: University Insurance:MedicaidPol [id number] Hospitals icy Number: 6 [place] Repository [id number] [facility], [place] Date:Plan [address]Aew: (330) Name:[phone] (HP) [place], [place] [address]TY: 11/06/2017 PAVITHRA PAINTER1916 Primary PAVITHRA Rodríguez CHANDOB: [place] Insurance:MEDICARE [id number] [place] [facility] [address]Frx: Number: Repository [phone] [id number] -2 (HP) Date:2017-11-06 11/06/2017 Secondary PAVITHRA FIERROOB: [place] Insurance:MEDICAIDPol [id number] On License Of [facility] icy Number: Hospital [id number] Repository Date:2017-11-06 11/06/2017 Tertiary NOT GIVENUNK [place] Insurance:SELF PAY [facility] Hospital Number: Effective Repository Date:2017-11-06 10/18/2017 PAVITHRA Rodríguez [id number] Primary PAVITHRA Rodríguez CHANDOB: [place] Insurance:MEDICARE [id number] [place] [facility] [address]Fpt: Number: Repository [phone] [id number] -2 (HP) Date:2017-09-17 10/18/2017 Secondary PAVITHRA FIERROOB: [place] Insurance:MEDICAIDPol [id number] On License Of [facility] icy Number: Hospital [id number] Repository Date:2017-09-17 10/18/2017 Tertiary NOT GIVENUNK [place] Insurance:SELF PAY Community [facility] Number: Effective Repository Date:2017-09-17 10/11/2017 PAVITHRA Rodríguez [id number] Primary PAVITHRA FIERROOB: [place] Insurance:MEDICARE [id number] [facility] [place] A [facility] [address]Rvb: Number: Repository [phone] [id number] -2 (HP) Date:2017-10-11 10/11/2017 Secondary PAVITHRA FIERROOB: [place] Insurance:MEDICAIDPol [id number] On License Of [facility] icy Number: Hospital [id number] Repository Date:2017-10-11 10/11/2017 Tertiary NOT GIVENUNK [place] Insurance:SELF PAY [facility] Number: Effective Repository Date:2017-10-11 10/06/2017 PAVITHRA FIERROOB: Primary PAVITHRA FIERROOB: [place] [id number] Insurance:[facility] [id number] [facility] 6 [place], [place] Number: [place], [place] [address]Lmu: [phone]) [id number] [phone]: () Date:Plan Name:[facility] 263 () 10/06/2017 Secondary PAVITHRA FIERROOB: University Insurance:MedicarePol [id number] [facility] icy Number: [address] [facility] [id number] [facility], [place] Date:Plan Name:[facility] [address]Qpi: (330) A [phone] () 10/06/2017 Tertiary PAVITHRA FIERROOB: University Insurance:MedicarePol [id number] [facility] icy Number: 6 [facility] [id number] [facility], [place] Date:Plan Name:[facility] [address]Tre: (330) B [phone] (HP) 10/06/2017 Tertiary PAVTIHRA FIERROOB: University Insurance:MedicaidPol [id number] [facility] icy Number: 6 [facility] [id number] [place] Date:Plan [address]Blo: (330) Name:[address] (HP) [place], [place] [address]UI: 09/28/2017 Pavithra Painter1916 Primary PAVITHRA FIERROOB: [place] Insurance:MEDICAIDPol [id number] [place] icy Number: Hospital [address]Clu: 330 [id number] Repository [phone] () Date:2017-09-15 09/28/2017 Secondary PAVITHRA Rodríguez CHANDOB: Pamela Insurance:MEDICARE [id number] Community PART A [facility] Hospital Number: Repository [id number] Date:2017-09-15 09/28/2017 Tertiary NOT [place]IV[place]UNK [place] Insurance:SELF PAY On [facility] Number: Effective Repository Date:2017-09-15 09/28/2017 PAVITHRA PAINTER1916 Primary PAVITHRA Rodríguez CHANDOB: [place] Insurance[id number] [facility] [address]Nes: Number: Repository [phone] [id number] -2 (HP) Date:2017-09-16 09/28/2017 Secondary PAVITHRA Rodríguez CHANDOB: [place] Insurance:MEDICAIDPol [id number] Community icy Number: Hospital [id number] Repository Date:2017-09-16 09/28/2017 Tertiary NOT GIVENUNK [place] Insurance:SELF PAY On License [facility] Hospital Number: Effective Repository Date:2017-09-16 09/27/2017 PAVITHRA PAINTER1916 Primary PAVITHRA Rodríguez CHANDOB: [place] Insurance:MEDICARE [id number] [place] PART A [facility] [address]Sjq: Number: Repository [phone] [id number] -2 (HP) Date:2017-09-27 09/27/2017 Secondary PAVITHRA Rodríguez CHANDOB: [place] Insurance:MEDICAIDPol [id number] On License Of [facility] icy Number: Hospital [id number] Repository Date:2017-09-27 09/27/2017 Tertiary NOT GIVENUNK [place] Insurance:SELF PAY On License [facility] Hospital Number: Effective Repository Date:2017-09-27 09/27/2017 PAVITHRA Rodríguez [id number] Primary PAVITHRA Rodríguez CHANDOB: [place] Insurance:MEDICARE [id number] [facility] A [facility] [address]Nod: Number: Repository [phone] [id number] (HP) Date:2017-09-27 09/27/2017 Secondary PAVITHRA H CHANDOB: [place] Insurance:[place]ICA[place] [id number] On License Of [facility] icy Number: Hospital [id number] Repository Date:2017-09-27 09/27/2017 Tertiary NOT GIVENUNK [place] Insurance:SELF PAY On License [facility] Hospital Number: Effective Repository Date:2017-09-27 09/27/2017 PAVITHRA Rodríguez [id number] Primary PAVITHRA H CHANDOB: [place] Insurance:MEDICARE [id number] [facility] [address]Nss: Number: Repository [phone] [id number] -2 (HP) Date:2017-09-27 09/27/2017 Secondary PAVITHRA H CH[place]OB: [place] Insurance:[place]ICA[place] [id number] On License Of [facility] icy Number: Hospital [id number] Repository Date:2017-09-27 09/27/2017 Tertiary NOT GIVENUNK [place] Insurance:SELF PAY On License [facility] Hospital Number: Effective Repository Date:2017-09-27 09/27/2017 PAVITHRA Rodríguez [id number] Primary PAVITHRA H CHANDOB: [place] Insurance:MEDICARE [id number] [facility] [address]Jyh: Number: Repository [phone] [id number] -2 (HP) Date:2017-09-27 09/27/2017 Secondary PAVITHRA H CHANDOB: [place] Insurance:MEDICAIDPol [id number] On License Of [facility] icy Number: Hospital [id number] Repository Date:2017-09-27 09/27/2017 Tertiary NOT GIVENUNK [place] Insurance:SELF PAY On License [facility] Hospital Number: Effective Repository Date:2017-09-27 09/27/2017 PAVITHRA Rodríguez [id number] Primary PAVITHRA H CHANDOB: [place] Insurance:MEDICARE [id number] [facility] A [facility] [address]Vyh: Number: Repository [phone] [id number] -2 (HP) Date:2017-09-27 09/27/2017 Secondary PAVITHRA H CHANDOB: [place] Insurance:[place] [id number] On License Of [facility] icy Number: Hospital [id number] Repository Date:2017-09-27 09/27/2017 Tertiary NOT GIVENUNK [place] Insurance:SELF PAY On License [facility] Hospital Number: Effective Repository Date:2017-09-27 09/27/2017 PAVITHRA Rodríguez [id number] Primary PAVITHRA H CHANDOB: [place] Insurance:MEDICARE [id number] [facility] [address]Qrd: Number: Repository [phone] [id number] (HP) Date:2017-09-27 09/27/2017 Secondary PAVITHRA H CHANDOB: [place] Insurance:[place] [id number] Community icy Number: Hospital [id number] Repository Date:2017-09-27 09/27/2017 Tertiary NOT GIVENUNK [place] Insurance:SELF PAY On License [facility] Hospital Number: Effective Repository Date:2017-09-27 09/27/2017 PAVITHRA Rodríguez [id number] Primary PAVITHRA H CHANDOB: [place] Insurance:MEDICARE [id number] [facility] [address]Tkx: Number: Repository [phone] [id number] -2 (HP) Date:2017-09-27 09/27/2017 Secondary PAVITHRA H CHANDOB: [place] Insurance:[place]ICA[place]Pol [id number] Community icy Number: Hospital [id number] Repository Date:2017-09-27 09/27/2017 Tertiary NOT GIVENUNK [place] Insurance:SELF PAY On License [facility] Hospital Number: Effective Repository Date:2017-09-27 09/27/2017 PAVITHRA H [id number] Primary PAVITHRA H CHANDOB: [place] Insurance:MEDICARE [id number] [facility] [address]Zzw: Number: Repository [phone] [id number] -2 (HP) Date:2017-09-27 09/27/2017 Secondary PAVITHRA Rodríguez CHANDOB: [place] Insurance:[place]ICAIDPol [id number] Community icy Number: Hospital [id number] Repository Date:2017-09-27 09/27/2017 Tertiary NOT GIVENUNK [place] Insurance:SELF PAY On License [facility] Hospital Number: Effective Repository Date:2017-09-27 09/27/2017 PAVITHRA Rodríguez [id number] Primary PAVITHRA Rodríguez CHANDOB: [place] Insurance:MEDICARE [id number] [place] [address]Cje: Number: Repository [phone] [id number] -2 (HP) Date:2017-09-27 09/27/2017 Secondary PAVITHRA H CHANDOB: [place] Insurance:MEDICAIDPol [id number] Community icy Number: Hospital [id number] Repository Date:2017-09-27 09/27/2017 Tertiary NOT GIVENUNK [place] Insurance:SELF PAY On License [facility] Hospital Number: Effective Repository Date:2017-09-27 09/27/2017 PAVITHRA Rodríguez [id number] Primary PAVITHRA H CHANDOB: [place] Insurance:MEDICARE [id number] [facility] A [facility] [address]Qxg: Number: Repository [phone] [id number] -2 (HP) Date:2017-09-27 09/27/2017 Secondary PAVITHRA H CHANDOB: [place] Insurance:[place]ICA[place] [id number] Community icy Number: Hospital [id number] Repository Date:2017-09-27 09/27/2017 Tertiary NOT GIVENUNK [place] Insurance:SELF PAY On License [facility] Hospital Number: Effective Repository Date:2017-09-27 09/27/2017 PAVITHRA H [id number] Primary PAVITHRA Rodríguez CHANDOB: [place] Insurance:MEDICARE [id number]'s [facility]aughters [facility] [place] [address]Wzs: Number: Repository [phone] [id number] -2 (HP) Date:2017-09-27 09/27/2017 Secondary PAVITHRA H CHANDOB: [place] Insurance:[place]ICAIDPol [id number] On License Of [facility] icy Number: Hospital [id number] Repository Date:2017-09-27 09/27/2017 Tertiary NOT GIVENUNK [place] Insurance:SELF PAY [facility] Effective Repository Date:2017-09-27 09/27/2017 PAVITHRA H [id number] Primary PAVITHRA H CHANDOB: [place] Insurance:MEDICARE [id number] [facility] A [facility] [address]Axc: Number: Repository [phone] [id number] -2 (HP) Date:2017-09-27 09/27/2017 Secondary PAVITHRA H CHANDOB: [place] Insurance:MEDICAIDPol [id number] On License Of [facility] icy Number: Hospital [id number] Repository Date:2017-09-27 09/27/2017 Tertiary NOT GIVENUNK [place] Insurance:SELF PAY On License [facility] Hospital Number: Effective Repository Date:2017-09-27 09/27/2017 PAVITHRA H [id number] Primary PAVITHRA H CHANDOB: [place] Insurance:MEDICARE [id number] [facility] A [facility] [address]Arm: Number: Repository [phone] [id number] -2 (HP) Date:2017-09-27 09/27/2017 Secondary PAVITHRA H CHANDOB: [place] Insurance:MEDICAIDPol [id number] On License Of [facility] icy Number: Hospital [id number] Repository Date:2017-09-27 09/27/2017 Tertiary NOT GIVENUNK [place] Insurance:SELF PAY Community [facility] Hospital Number: Effective Repository Date:2017-09-27 09/27/2017 PAVITHRA H [id number] Primary PAVITHRA H CHANDOB: [place] Insurance:MEDICARE [id number] [facility] [address]Pmd: Number: Repository [phone] [id number] -2 (HP) Date:2017-09-27 09/27/2017 Secondary PAVITHRA H CHANDOB: [place] Insurance:[place]ICAIDPol [id number] Community icy Number: Hospital [id number] Repository Date:2017-09-27 09/27/2017 Tertiary NOT GIVENUNK [place] Insurance:SELF PAY Community [facility] Number: Effective Repository Date:2017-09-27 09/27/2017 PAVITHRA PAINTER1916 Primary PAVITHRA Rodríguez CHANDOB: [place] Insurance:MEDICARE [id number] [place] PART A [facility] [address]Olb: Number: Repository [phone] [id number] -2 () Date:2017-09-27 09/27/2017 Secondary PAVITHRA Rodríguez CHANDOB: [place] Insurance:MEDICAIDPol [id number] Community icy Number: Hospital [id number] Repository Date:2017-09-27 09/27/2017 Tertiary NOT GIVENUNK [place] Insurance:SELF PAY Community [facility] Number: Effective Repository Date:2017-09-27 09/21/2017 Pavithra Painter1916 Primary PAVITHRA Rodríguez CHANDOB: [place] Insurance:MEDICAIDPol [id number] [place] icy Number: Hospital [id number]: 330 [id number] Repository [phone] () Date:2017-09-15 09/21/2017 Secondary PAVITHRA Rodríguez CHANDOB: [place] Insurance:MEDICARE [id number] Community PART A [facility] Hospital Number: Repository [id number] Date:2017-09-15 09/21/2017 Tertiary NOT GIVENUNK [place] Insurance:SELF PAY Community [facility] Hospital Number: Effective Repository Date:2017-09-15 09/16/2017 Pavithra Rodríguez [id number] Primary PAVITHRA Rodríguez CHANDOB: [place] Insurance:MEDICARE [id number] [place] PART A [facility] [address]Tff: (330) Number: Repository [phone] () [id number] Date:2017-09-16 09/16/2017 Secondary PAVITHRA H CHANDOB: [place] Insurance:[place]ICAIDPol [id number] On License Of [facility] icy Number: Hospital [id number] Repository Date:2017-09-16 09/16/2017 Tertiary NOT GIVENUNK [place] Insurance:SELF PAY Community [facility] Hospital Number: Effective Repository Date:2017-09-16 09/09/2017 Pavithra Painter1916 Primary PAVITHRA FIERROOB: [place] Insurance:MEDICARE [id number] [place] PART A [facility] [address]Jov: (330) Number: Repository [phone] () [id number] Date:2017-09-09 09/09/2017 Secondary PAVITHRA FIERROOB: [place] Insurance:MEDICAIDPol [id number] On License Of [facility] icy Number: Hospital [id number] Repository Date:2017-09-09 09/09/2017 Tertiary NOT GIVENUNK [place] Insurance:SELF PAY On License [facility] Effective Repository Date:2017-09-09 09/09/2017 PAVITHRA FIERROOB: Primary PAVITHRA FIERROOB: University [id number] Insurance:[facility] [id number] [address] Number: [place], [place] [address]Rxe: [phone] [id number] [id number]: () Date:Plan Name:Health 263 () 09/09/2017 Secondary PAVITHRA FIERROOB: University Insurance:MedicarePol [id number] [facility] icy Number: 6 [address] Repository [id number] [facility], [place] Date:Plan Name:[facility] [address]Nkh: (330) A [id number] () 09/09/2017 Tertiary PAVITHRA FIERROOB: University Insurance:MedicarePol [id number] [facility] icy Number: 6 [address] Repository [id number] [facility], [place] Date:Plan Name:[facility] [address]Umt: (330) B 263174 () 09/09/2017 Tertiary PAVITHRA FIERROOB: University Insurance:MedicaidPol [id number] [facility] icy Number: 6 [place]ERRY Repository [id number] [facility], [place] Date:Plan [address]Zeu: (330) Name:Health [id number] (HP) [address], [place] [address]VO:
== END 2018-08-15 18:07 | disposition home or self-care (01) | DRG 70 ==
LOC: ED 16:23 → PCU 17:36
PROVIDERS: Hospitalist; Internal Medicine Nephrology; Emergency Provider Emergency Medicine; Family Provider Family Medicine Geriatric Medicine; PCP Family Medicine Geriatric Medicine; Visit Provider Family Medicine
DX: G93.49 Other encephalopathy (principal); N18.6 End stage renal disease; L03.113 Cellulitis of right upper limb; T82.7XXA Infection and inflammatory reaction due to other cardiac and vascular devices, implants and grafts, initial encounter; I12.0 Hypertensive chronic kidney disease with stage 5 chronic kidney disease or end stage renal disease; G92 Toxic encephalopathy; T50.905A Adverse effect of unspecified drugs, medicaments and biological substances, initial encounter; G47.419 Narcolepsy without cataplexy; Z99.2 Dependence on renal dialysis; M32.14 Glomerular disease in systemic lupus erythematosus; D50.9 Iron deficiency anemia, unspecified; D63.8 Anemia in other chronic diseases classified elsewhere; M50.30 Other cervical disc degeneration, unspecified cervical region; I34.0 Nonrheumatic mitral (valve) insufficiency; I36.1 Nonrheumatic tricuspid (valve) insufficiency; I27.21 Secondary pulmonary arterial hypertension; M47.812 Spondylosis without myelopathy or radiculopathy, cervical region; E11.22 Type 2 diabetes mellitus with diabetic chronic kidney disease; Z79.84 Long term (current) use of oral hypoglycemic drugs; Z79.899 Other long term (current) drug therapy; Z79.52 Long term (current) use of systemic steroids; B96.89 Other specified bacterial agents as the cause of diseases classified elsewhere
CPT/HCPCS: 36415; 36600; 51702; 70450; 70551; 71045; 72125; 73200; 74018; 80048; 80053; 80076; 80307; 80320; 80329; 82140; 82533; 82550; 82803; 82962; 83605; 84100; 84484; 85025; 87040; 87070; 87075; 87205; 87640; 90937; 92526; 93005; 93971; 94762; 97803; 99285; J7030; J7040; J7050; A4216; G0257; G0480; J0295; J7799

== ENCOUNTER → 2018-08-18 12:08 | Outpatient (CLI) | payer MEDICARE, MEDICAID, SELFPAY ==
[2018-08-12 18:15] VITALS: BMI 28.7
--- NOTE | 2018-08-18 12:17 | BI_ITS ---
MAMMOGRAPHY - BILATERAL SCREENING REASON FOR EXAM: Female, 48 years old. Routine annual screening examination. PERTINENT HISTORY: Non-contributory. TECHNIQUE: Digital bilateral breast princess (3D mammographic acquisition) in the CC and MLO projections. 2-D mediolateral oblique (MLO) and craniocaudad (CC) views of both breasts were obtained. CAD: Full Field Digital Mammography with Computer Added Detection was performed. COMPARISON: Comparison is made with prior study dated May 11, 2017 and May 07, 2016. FINDINGS: Breast Composition: The breasts are heterogeneously dense, which may obscure small masses. There are no dominant masses or suspicious calcifications. A double-lumen port catheter is seen in the right axillary region. Prominent venous markings are seen in the upper outer quadrant of the left breast. Clinical correlation is recommended. No other significant abnormalities are identified. There has been no significant change since the prior study. BI/SCREENING MAMM (CAD), BILAT IMPRESSION: Stable bilateral screening mammogram. Yearly follow-up mammogram recommended. (A) ASSESSMENT CATEGORY: BIRADS Category 2: Benign. A letter regarding these results will be sent to the patient by the facility within 30 days. Approximately 10% of breast cancers are not detected by mammography. A normal mammogram should not delay biopsy of a clinically suspicious abnormality. [id number] Electronically Signed: Jonathan Garcia MD at 13:36 EST Tel [phone], Service support ,
== END ==
PROVIDERS: Family Provider Family Medicine Geriatric Medicine; PCP Family Medicine Geriatric Medicine; Referring Provider Family Medicine Geriatric Medicine; Visit Provider Family Medicine Geriatric Medicine
DX: Z12.31 Encounter for screening mammogram for malignant neoplasm of breast (principal)
CPT/HCPCS: 77063; 77067

== ENCOUNTER 2018-09-09 15:45 | Emergency (ER) | payer MEDICARE, MEDICAID, SELFPAY ==
[2018-08-29 12:20] VITALS: BMI 28.4
[2018-09-09 15:50] VITALS: BP 163/100; PULSE 94; RESP 14; TEMP 36.7; O2SAT 100; BMI 21.5
--- NOTE | 2018-09-09 15:57 | EKG12_ITS ---
Test Reason : HYPOGLYCEMIA Blood Pressure : / mmHG Vent. Rate : 091 BPM Atrial Rate : 091 BPM P-R Int : 156 ms QRS Dur : 090 ms QT Int : 362 ms P-R-T Axes : 053 026 086 degrees QTc Int : 445 ms Normal sinus rhythm Nonspecific ST and T wave abnormality Abnormal ECG Confirmed by DALE GARCIA, ISABELA ([id number]), index editor CESAR SIMEON ([id number]) on 09/12/2018 12:52:40 PM Referred By: BHARGAVI Confirmed By:ISABELA HUNTER MD
--- NOTE | 2018-09-09 15:58 | ED.VISSUMM ---
- ER Visit Summary Date of Service: 09/09/18 Chief Complaint: Hypoglycemia History of Present Illness: The patient is a 48 F who presents from hemodialysis for an episode of hypoglycemia. Patient completed dialysis, and staff noted she was unresponsive. They checked her blood sugar and it was 43. EMS was called. Patient was responding to them. They gave her intramuscular glucagon and had a repeat check of 53. They then gave oral glucose. Patient is currently denying any complaints, including chest pain, shortness of breath, abdominal pain, nausea or vomiting, cough, congestion. She does make a small amount of urine. Physical Examination: Vital signs: afebrile, hemodynamically stable, no hypoxia on room air General: well nourished, well developed, in no distress Skin: warm, dry, no rash, no pallor HEENT: normocephalic and atraumatic; PERRL, EOMI, diffuse conjunctival injection, moist mucous membranes Cardiovascular: regular rate and rhythm without murmurs, no peripheral edema, 2+ pulses all distal extremities Respiratory: No increased work of breathing, lungs are clear to auscultation bilaterally, no rales, rhonchi or wheezing Abdominal: Abdomen is soft, nontender with normoactive bowel sounds, no guarding or rebound, no masses MSK: Moves all extremities, no deformities, generalized weakness Neuro: Awake and alert, oriented ?4, answering all questions appropriately. No facial droop, sensation and motor function intact and symmetric Test Results: Abnormal Lab Results 09/09/18 09/09/18 09/09/18 15:57 16:05 16:05 WBC 6.4 RBC 3.55 L Hgb 11.5 L Hct 36.8 L MCV 103.7 H MCH 32.4 H MCHC 31.3 L RDW 16.6 H RDW Differential 61.6 H Plt Count 166 MPV 10.2 Immature Gran % (Auto) 0.300 Neut % (Auto) 65.2 Lymph % (Auto) 24.2 [place] % (Auto) 8.3 Eos % (Auto) 1.7 Baso % (Auto) 0.3 Absolute Neuts (auto) 4.1 Absolute Lymphs (auto) 1.54 Total Counted Not Reportable Sodium 139 Potassium 3.9 Chloride 101 Carbon Dioxide 29.0 Anion Gap 9 BUN 20 H Creatinine 3.30 H Estim Creat Clear Calc 18.39 Est GFR (MDRD) Af Amer 19 L Est GFR (MDRD) Non-Af 16 L BUN/Creatinine Ratio 6.1 L Glucose 80 Calcium 8.2 L Total Bilirubin 0.80 AST 49 H ALT 31 Alkaline Phosphatase 113 Troponin I 0.034 Total Protein 8.3 H Albumin 3.6 Globulin 4.7 H Albumin/Globulin Ratio 0.8 L Urine Color Urine Clarity Urine pH Ur Specific [place] Urine Protein Urine Glucose (UA) Urine Ketones Urine Occult Blood Urine Nitrite Urine Bilirubin Urine Urobilinogen Ur Leukocyte Esterase Urine RBC Urine WBC Ur Squamous Epith Cells Amorphous Sediment Urine Bacteria Urine Mucus POC Glucose 67 L 09/09/18 09/09/18 16:19 17:05 WBC RBC Hgb Hct MCV MCH MCHC RDW RDW Differential Plt Count MPV Immature Gran % (Auto) Neut % (Auto) Lymph % (Auto) [place] % (Auto) Eos % (Auto) Baso % (Auto) Absolute Neuts (auto) Absolute Lymphs (auto) Total Counted Sodium Potassium Chloride Carbon Dioxide Anion Gap BUN Creatinine Estim Creat Clear Calc Est GFR (MDRD) Af Amer Est GFR (MDRD) Non-Af BUN/Creatinine Ratio Glucose Calcium Total Bilirubin AST ALT Alkaline Phosphatase Troponin I Total Protein Albumin Globulin Albumin/Globulin Ratio Urine Color Yellow Urine Clarity Sl Cldy Urine pH 8.0 Ur Specific [place] 1.010 Urine Protein 100 H Urine Glucose (UA) 50 H Urine Ketones Negative Urine Occult Blood 10 H Urine Nitrite Negative Urine Bilirubin Negative Urine Urobilinogen Normal Ur Leukocyte Esterase Negative Urine RBC 0-5 SEEN Urine WBC 0-5 SEEN Ur Squamous Epith Cells 0-5 SEEN Amorphous Sediment 1+ PHOS Urine Bacteria 0 SEEN Urine Mucus 0 SEEN POC Glucose 100 Clinical Impression(s) from Imaging Studies Chest X-Ray 09/09/18 16:05 IMPRESSION: No acute thoracic pathology. Electronically Signed: Alfredo Markos, at 16:47 EST Tel , Service support , Medications Given Discontinued Medications Dextrose (D50w Syringe) 12.5 gm IV X1 ONE Stop: 09/09/18 16:21 Last Admin: 09/09/18 17:11 Dose: Not Given Emergency Department Course and Treatment: Patient presents for hypoglycemia at dialysis. Patient had received glucagon and oral glucose by EMS. She was still hypoglycemic on arrival in the emergency department. He showed no leukocytosis. Glucose on BMP was 80. Urine negative for infection. Troponin was within normal limits. EKG showed no ischemic changes. Patient had improvement of her hyperglycemia without any D50 required. On reevaluation she was sitting upright, interactive, answering all questions appropriately, and stated she felt much better and at her baseline. She was ready to go home. She was given a snack prior to discharge. Return precautions given. Treatment Plan: [] Disposition: [] Impression: Hypoglycemic episode This note was generated with hoozin dictation software. It may contain incorrect words, spelling, and punctuation that were not noted in review of the chart prior to signing ED Disposition - Plan for ED Patient: Disposition: Home or Assisted Living Chief Complaint: Hypoglycemia Instructions: ED Diabetes Hypoglycemia Oral Agent Referrals: Mitchell Bowen Chi, MD [Primary Care Provider] - 1-2 Days if not improving Additional Instructions: Continue all your medications, including your diabetes medications, as prescribed. Make sure to eat a good protein and complex carbohydrate containing meal tonight. If you have any worsening of your condition or any new concerning symptoms, please return immediately to the emergency department for another evaluation.
[2018-09-09 16:05] VITALS: BP 167/93; PULSE 92; RESP 14; O2SAT 100
[2018-09-09 16:05] LABS: Bedside Glucose 67 mg/dL (70-110)
--- NOTE | 2018-09-09 16:05 | RAD_ITS ---
STUDY: X-RAY CHEST REASON FOR EXAM: Female, 48 years old. Hypoglycemia TECHNIQUE: Frontal view of the chest COMPARISON: 08/13/2018 FINDINGS: There is a right-sided central catheter with its tip in the superior vena cava. The lungs are clear. There are no pleural effusions. There is no pneumothorax. The heart is normal in size. The visualized osseous structures are within normal limits. RAD/Chest 1 View (Portable) IMPRESSION: No acute thoracic pathology. Electronically Signed: Alfredo Burrows, at 16:47 EST Tel , Service support ,
[2018-09-09 16:16] VITALS: BP 183/106; PULSE 91; RESP 11; O2SAT 100
[2018-09-09 16:19] LABS: Absolute Lymphocyte Count 1.54 X10^3/ul (0.83-4.51); Absolute Neutrophil Count 4.1 X10^3/uL (2.0-7.7); Basophil# 0.02 X10^3/uL; Basophil% 0.3 % (0-1); Eosinophil# 0.11 X10^3/uL; Eosinophils% 1.7 % (0-5); Hematocrit 36.8 % (37-47); Hemoglobin 11.5 g/dl (12.0-15.0); Lymphocyte # 1.54 X10^3/ul (4.0); Lymphocyte % 24.2 % (19-41); Mean Corp Hgb Conc 31.3 g/gl (32-36); Mean Corpuscular Hgb 32.4 pg (27.0-32.0); Mean Corpuscular Volume 103.7 fL (81-99); Mean Platelet Vol. 10.2 fl (6.2-12.0); Monocyte# 0.53 X10^3/uL; Monocyte% 8.3 % (0-10); Neutrophil # 4.14 X10^3/uL (2.7-7.7); Neutrophil % 65.2 % (47-70); Platelet Count 166 K/mm3 (150-450); RBC Distribution Width CV 16.6 % (11.6-14.6); RBC Distribution Width SD 61.6 fl (35.1-43.9); Red Blood Count 3.55 M/mm3 (4.2-5.4); White Blood Count 6.4 K/mm3 (4.4-11.0)
[2018-09-09 16:26] LABS: POSITIVE COUNT NO; POSITIVE DIFFERENTIAL NO; POSITIVE MORPHOLOGY NO
[2018-09-09 16:33] LABS: ALB/GLOB Ratio 0.8 RATIO (0.9-2.4); AST(SGOT) 49 U/L (15-37); Alanine Aminotransfer ALT/SGPT 31 U/L (13-56); Albumin, Serum 3.6 g/dL (3.2-5.0); Alkaline Phosphatase 113 U/L (45-117); Anion Gap 9 (5-15); BUN 20 mg/dL (7-18); BUN/Creat Ratio 6.1 RATIO (10-20); Calcium,Total 8.2 mg/dL (8.5-10.1); Chloride 101 mmol/L (98-107); EST Glomerular Filtration Rate 16 mL/min (>60); Est Glom Filt Rate - Afr Amer 19 mL/min (>60); Estimated Creatinine Clearance 18.39 ml/min; Globulin 4.7 g/dL (2.2-4.2); Glucose 80 mg/dL (74-106); Potassium 3.9 mmol/L (3.5-5.1); Protein, Total 8.3 g/dL (6.4-8.2); Sodium Level 139 mmol/L (136-145)
--- NOTE | 2018-09-09 16:44 | ED.RN ---
PT MORE AWAKE, CONVERSING. CALLED PT SISTER PER REQUEST TO LET HER KNOW SHE WAS HERE. ROSS [phone].
[2018-09-09 17:09] LABS: Bacteria 0 SEEN /hpf (None Seen); Mucous, Urine 0 SEEN /hpf (<or=2+)
[2018-09-09 17:15] LABS: Color, Urine Yellow (Yellow); Glucose, Dipstick 50 mg/dl (Normal); Ketone-Dipstick Negative (Negative); Leukocyte Esterase-Dipstick Negative /ul (Negative); Nitrite-Dipstick Negative (Negative); Occult Blood-Urine 10 /ul (Negative); Protein-Dipstick 100 mg/dl (Negative); Urine Bilirubin Dipstick Negative (Negative); Urine Urobilinogen Normal (Normal)
[2018-09-09 17:19] VITALS: BP 129/78; PULSE 91; RESP 19; O2SAT 100
[2018-09-09 17:30] LABS: Red Blood Cells-Urine 0-5 SEEN /hpf (0-5); Squamous Epithelial Cells - UA 0-5 SEEN /hpf (5-10); Urine Clarity Sl Cldy (Clear); White Blood Cells 0-5 SEEN /hpf (0-5)
[2018-09-09 17:31] LABS: Amorphous Sediment 1+ PHOS
[2018-09-09 18:32] VITALS: BP 147/104; PULSE 94; RESP 12; O2SAT 99
--- NOTE | 2018-09-09 18:35 | ED.RN ---
SPOKE WITH SISTER ROSS PER PT REQUEST. PT BROTHER WILL BE COMING TO GET HER. NO FURTHER NEEDS VOICED.
[2018-09-09 18:36] LABS: Bedside Glucose 100 mg/dL (70-110)
--- NOTE | 2018-09-09 18:44 | ED.DEP ---
ED Disposition - Plan for ED Patient: Disposition: Home or Assisted Living Chief Complaint: Hypoglycemia Instructions: ED Diabetes Hypoglycemia Oral Agent Referrals: Mitchell Bowen Chi, MD [Primary Care Provider] - 1-2 Days if not improving Additional Instructions: Continue all your medications, including your diabetes medications, as prescribed. Make sure to eat a good protein and complex carbohydrate containing meal tonight. If you have any worsening of your condition or any new concerning symptoms, please return immediately to the emergency department for another evaluation.
[2018-09-09 18:56] VITALS: BP 147/104; PULSE 92; RESP 18
== END 2018-09-09 19:07 | disposition home or self-care (01) ==
PROVIDERS: Emergency Provider Emergency Medicine; Family Provider Family Medicine Geriatric Medicine; PCP Family Medicine Geriatric Medicine
DX: E11.649 Type 2 diabetes mellitus with hypoglycemia without coma (principal); I12.0 Hypertensive chronic kidney disease with stage 5 chronic kidney disease or end stage renal disease; N18.9 Chronic kidney disease, unspecified; Z99.2 Dependence on renal dialysis
CPT/HCPCS: 71045; 80053; 81001; 82962; 84484; 85025; 93005; 96374; 99285; P9612; A4216; J1610

== ENCOUNTER → 2018-09-15 15:40 | Outpatient (CLI) | payer MEDICARE, MEDICAID, SELFPAY ==
[2018-09-09 15:50] VITALS: BMI 21.5
[2018-09-15 17:28] LABS: Absolute Lymphocyte Count 1.21 X10^3/ul (0.83-4.51); Absolute Neutrophil Count 6.5 X10^3/uL (2.0-7.7); Basophil# 0.01 X10^3/uL; Basophil% 0.1 % (0-1); Eosinophils% 1.2 % (0-5); Hematocrit 35.5 % (37-47); Hemoglobin 10.9 g/dl (12.0-15.0); Lymphocyte # 1.21 X10^3/ul (4.0); Lymphocyte % 14.5 % (19-41); Mean Corp Hgb Conc 30.7 g/gl (32-36); Mean Corpuscular Volume 104.1 fL (81-99); Monocyte# 0.52 X10^3/uL; Monocyte% 6.2 % (0-10); Neutrophil % 77.6 % (47-70); Platelet Count 188 K/mm3 (150-450); RBC Distribution Width CV 16.5 % (11.6-14.6); RBC Distribution Width SD 60.3 fl (35.1-43.9); Red Blood Count 3.41 M/mm3 (4.2-5.4); White Blood Count 8.4 K/mm3 (4.4-11.0)
[2018-09-15 17:34] LABS: POSITIVE COUNT NO; POSITIVE DIFFERENTIAL NO; POSITIVE MORPHOLOGY NO
[2018-09-15 17:47] LABS: Vitamin D,25 Hydroxy 34.8 ng/mL (29.95-100.01)
[2018-09-15 18:03] LABS: BUN 45 mg/dL (7-18); Glucose 115 mg/dL (74-106)
[2018-09-15 18:04] LABS: ALB/GLOB Ratio 0.7 RATIO (0.9-2.4); AST(SGOT) 35 U/L (15-37); Alanine Aminotransfer ALT/SGPT 19 U/L (13-56); Albumin, Serum 3.1 g/dL (3.2-5.0); Alkaline Phosphatase 90 U/L (45-117); Anion Gap 9 (5-15); BUN/Creat Ratio 6.2 RATIO (10-20); Calcium,Total 8.8 mg/dL (8.5-10.1); Chloride 105 mmol/L (98-107); EST Glomerular Filtration Rate 6 mL/min (>60); Est Glom Filt Rate - Afr Amer 8 mL/min (>60); Globulin 4.4 g/dL (2.2-4.2); Potassium 5.1 mmol/L (3.5-5.1); Protein, Total 7.5 g/dL (6.4-8.2); Sodium Level 141 mmol/L (136-145); Thyroid Stim Hormone (TSH) 0.86 uIU/mL (0.358-3.74)
== END ==
PROVIDERS: Family Provider Family Medicine Geriatric Medicine; PCP Family Medicine Geriatric Medicine; Visit Provider Family Medicine Geriatric Medicine
DX: E11.9 Type 2 diabetes mellitus without complications (principal); E55.9 Vitamin D deficiency, unspecified
CPT/HCPCS: 36415; 80053; 82306; 84443; 85025

== ENCOUNTER 2018-09-20 12:57 | Outpatient (RCR) | payer MEDICARE, MEDICAID, SELFPAY ==
--- NOTE | 2018-09-20 14:00 | HP.PTEVAL ---
Patient's Visit Information PAVITHRA PAINTER is a 48 year old F referred to Physical Therapy by Mitchell Bowen MD with a diagnosis of NECK PAIN AND WEAKNESS. Date of Evaluation: 09/20/18 Physical Therapist: Maureen Solis PT, Cert MDT - Visit Plan Frequency: 2x /Week Duration: 4-6 Weeks Plan: *patient reports that she is currently off of diabetic medications due to the episodes of hypoglycemia. Patient reports she would like for us to give her candy and juice from her back pack if she has an episode or call the squad. CERVICAL ISOMETRICS. POSTURE CORRECTION/STRENGTHENING, INSTRUCTION IN APPROPRIATE BODY MECHANICS. CORE STRENGTHENING. SHAN UE AND LE STRENGTHENING. BALANCE TRAINING. HEP INSTRUCTION. - Subjective Findings: Diagnosis: NECK PAIN AND GENERAL WEAKNESS Work/Leisure: UNEMPLOYEED. Disability: YES. Present symptoms: NECK PAIN AND INTO SKULL - SHOOTING PAIN, SHAN SHOULDER PAIN AND ACROSS CHEST, HIPS/LOW BACK AND SHAN KNEE PAIN. NEURAPATHY IN TOES AND FINGERS. Present since: 20 YEARS BUT PAIN ACROSS CHEST IS NEW. HEART PROBLEMS HAVE BEEN RULED OUT. Pain Scale: WORST 5/10, LEAST 2/10. Currently: 3/10. GETTING A LITTLE BIT WORSE. Commenced as a result of: JUN 2018 RIGHT UE FISTUAL SURGERY IN PART INCREASED HER DEBILITY BUT HAS ALSO HAD THREE HYPOGLYCEMIC EPISODES WITH ER VISITS AND ONE HOSP ADMISSION IN THE LAST TWO MONTHS. THE NECK/SHOULDER AND NECK PAIN STARTED OCCURRING AFTER THE FISTULA SURGERY JUN 2018. MORE RIGHT UE FISTULA SURGERY PENDING IN THE NEXT MONTH OR TWO. Symptoms at onset: A SCALELY PATCH ON HER SCALP WAS HER FIRST SYMPTOM AND SHE WAS DIAGNOSED WITH SEVERE DERMATITIS AND THEN SHE WAS EVENTUALLY DIAGNOSED WITH LUPUS AFTER GETTING NON BACTERIAL, NON VIRAL MENENGITIS. SHE REPORTS THE RIGHT UE FISTULA SURGERY IS A NEW PLACEMENT DUE TO THE LEFT ONE BECOMING NON FUNCTIONAL. Worse: LIFTING, OVER EXERTING, POOR SLEEP. Better: REST AND SOMETIMES STRETCHING. Disturbed sleep: YES. Previous history/Previous treatment: LAND AND WATER EX'S. PATIENT PREFERS LAND. Gait: DISTANCE LIMITED. ENDURANCE IS A PROBLEM. STAIRS ARE DIFFICULT. HIP AND KNEE PAIN ALSO LIMITS HER WALKING SOMETIMES. HAVING MORE TROUBLE STANDING AND SITTING UP STRAIGHT. PMH: Past Problem with dialysis access (Acute). Dehydration with hyponatremia (Acute). Chronic anemia (Chronic). Hyperkalemia (Acute). Acute renal failure (Acute). Chronic kidney disease (Chronic). Hypertension (Chronic). Narcolepsy (Chronic). Lupus nephritis (Chronic). Degenerative disc disease, cervical (Chronic). Cervical spondylosis (Chronic). Unresponsiveness (Acute). Colitis (Acute). Leukopenia (Acute). Diabetes mellitus, type II (Chronic). SLE (systemic lupus erythematosus) (Chronic). Status post left heart catheterization (Acute). Surgical History: History of esophagogastroduodenoscopy (EGD) (Acute). Presence of surgically created arteriovenous shunt for hemodialysis (Acute). S/P colonoscopy (Acute). S/P lymph node biopsy (Acute). S/P nasal polypectomy (Acute). Status post carpal tunnel release (Acute). Status post total hip replacement, bilateral (Acute). *patient reports that she is currently off of diabetic medications due to the episodes of hypoglycemia. Patient reports she would like for us to give her candy and juice from her back pack if she has an episode or call the squad. OTHER: PATIENT REPORTS SHE ALSO HAD DIAGNOSIS OF ENCEPHALOPATHY WHEN HOSPITALIZED. SHE IS NOW TRYING TO EAT MORE EVEN IF SHE ISN'T HAVING HUNGER PAINS. PATIENT DENIES ANY INTENSIONAL OVERDOSE - Objective *patient reports that she is currently off of diabetic medications due to the episodes of hypoglycemia. Patient reports she would like for us to give her candy and juice from her back pack if she has an episode or call the squad. PRIOR TO TESTING PATIENT DENIED HAVING ANY RESTRICTIONS THAT SHE IS AWARE OF. Sitting Posture: POOR. Standing Posture: POOR. PATIENT IS VERY SLOUCHED WITH ROUNDED SHOULDERS AND FORWARD HEAD. Postural strength: POOR. Other Observations: INDEP GAIT INTO PT WITHOUT AD WITH SLOW CADANCE AND NO LOB AND EXCESSIVE TRUNK FLEXION. INDEP TRANSFER SIT TO STAND WITHOUT UE ASSIST. POOR ENDURANCE. Motor deficit: SHAN UE AND LE STRENGTH GROSSLY 4-/5 WITH MMT'ING. RIGHT PRIOR AUTHORIZATION NURSE STRENGTH 55 LBS AND LEFT 45 LBS DESPITE RIGHT UE FISTULA SURGERY. ROM deficit: SHAN UE AND LE ROM WFL. Lumbar mvmt loss: flex - NIL. ext - ALBERTO R SG - MIN. L SG - MIN. Core strength: POOR. Scapular Strength: POOR. Cervical Mvmt Loss: FLEX - NIL, EXT - MIN TO MOD, PRO - NIL, RET - ALBERTO, SHAN SB - NIL, SHAN ROT - MIN. PATIENT WITH C/O INCREASED PAIN IN SHAN NECK REGIONS WITH CERVICAL SHAN SB AND EXTENSION ROM TESTING. OTHER: PATIENT HAS GENERALIZED WEEK AND POOR ENDURANCE. SHE IS ABLE TO SLS ON EACH LEG WITHOUT UE ASSIST X APPROX 5 SECONDS EACH. PATIENT STILL HAS SWELLING IN RIGHT UE FROM FISTULA SURGERY AND ALTERED SENSATION IIN HER RIGHT ELBOW AND FOREARM. - Goals Goal 1:: DECREASE C/O NECK PAIN Goal Time Frame: 4-6 Weeks Goal 2:: IMPROVE POSTURAL, STANDING, WALKING, PERSONAL CARE, READING, SLEEP AND RECREATIONAL FUNCTION Goal Time Frame: 4-6 Weeks Goal 3:: INDEP AND SAFE GAIT ON ALL SURFACES WITH LEAST ASSISTIVE DEVICE X 1600 FEET WITH MILD SOB. Goal Time Frame: 4-6 Weeks Goal 4:: INDEP HEP FOR GENERAL UPPER AND LOWER BODY STRENGTHEING FOR CONTINUED IMPROVEMENT ONCE FORMAL PT CONCLUDES. Goal Time Frame: 4-6 Weeks - Rehabilitation Potential Rehabilitation Potential: Fair - Anticipated Interventions Patient/Client Instruction: Educate patient on: Condition, Plan of Care, Risk Factors, Benefits of Fitness Program For the Purpose of:: To improve self management Therapeutic Exercise to Include: Strength training, Endurance training, Balance training, Body mechanics, Postural training, Active ROM, Dynamic Lumbar Stabilization, Scapular Strength/Stabilization For the Purpose of:: To decrease pain, To increase ROM, To improve muscle performance and motor function, To improve ability to perform ADL's, To increase tolerance to activity/condition/position, To improve gait and locomotor functions Thank you for the opportunity to evaluate your patient. For Medicare and Medicare HMO plans, please review the plan of care and approve it. It will need to be FAXED BACK to us at [phone] for Medicare purposes. For Medicare only, by signing this I certify the plan of care. Please let me know if there are questions or concerns regarding this plan of care. Physician Signature: Date:
--- NOTE | 2018-10-14 10:16 | HP.PT.NRP ---
HP - Discharge Summary (1) - Patient Information PAVITHRA PAINTER was seen in my office for initial evaluation on 09/20/18. The following Plan of Care was established for this patient: Initial Frequency: 2x /Week Initial Duration: 4-6 Weeks - Anticipated Interventions Patient/Client Instruction: Educate patient on: Condition, Plan of Care, Risk Factors, Benefits of Fitness Program For the Purpose of:: To improve self management Therapeutic Exercise to Include: Strength training, Endurance training, Balance training, Body mechanics, Postural training, Active ROM, Dynamic Lumbar Stabilization, Scapular Strength/Stabilization For the Purpose of:: To decrease pain, To increase ROM, To improve muscle performance and motor function, To improve ability to perform ADL's, To increase tolerance to activity/condition/position, To improve gait and locomotor functions This patient was last seen in our office 09/20/18. Pertinent comments regarding their Physical therapy will appear below: This patient has not returned to Physical Therapy and is appropriate to return to MD for further follow-up as needed. At this point I will be discontinuing this patient from physical therapy. I would be happy to see this patient again in the future if found appropriate by the physician. Thank you! Maureen Solis, PT, Cert MDT
== END 2018-09-20 19:00 | disposition home or self-care (01) ==
LOC: PT 12:57
PROVIDERS: Family Provider Family Medicine Geriatric Medicine; PCP Family Medicine Geriatric Medicine; Visit Provider Family Medicine Geriatric Medicine
DX: M54.2 Cervicalgia (principal); R53.83 Other fatigue
CPT/HCPCS: 97163

== ENCOUNTER 2018-09-24 10:11 | Inpatient (IN) | payer MEDICARE, MEDICAID, SELFPAY ==
[2018-09-24] VITALS (27 sets, daily range): BP systolic 94–225; BP diastolic 56–129; PULSE 73–103; RESP 6–22; TEMP 35.8–37.1; O2SAT 97–100; BMI 28.7; BMI 27.8; BMI 27.9
--- NOTE | 2018-09-24 10:21 | EKG12_ITS ---
Test Reason : Blood Pressure : / mmHG Vent. Rate : 080 BPM Atrial Rate : 080 BPM P-R Int : 150 ms QRS Dur : 082 ms QT Int : 416 ms P-R-T Axes : 062 046 094 degrees QTc Int : 479 ms Normal sinus rhythm Normal ECG Confirmed by GARO GARCIA, KERON ([id number]), photo editor CESAR SIMEON ([id number]) on 09/27/2018 4:40:44 PM Referred By: Mitchell Bowen Confirmed By:KERON WYMAN MD
--- NOTE | 2018-09-24 10:21 | RAD_ITS ---
STUDY: X-RAY CHEST REASON FOR EXAM: Female, 48 years old. Shortness of breath TECHNIQUE: Single AP portable view of the chest. COMPARISON: September 09, 2018 chest x-ray FINDINGS: There is a right-sided central line tip is in the vena cava. The lungs are underexpanded with compared to prior study. There is no demonstrated pleural abnormality. There is mild cardiac enlargement. And compared to prior study this is slightly greater prominence of the right-sided paramediastinal soft tissues. Normal visualized pulmonary arteries. Normal visualized aortic arch and descending thoracic aorta. Normal visualized thoracic spine. Normal visualized ribs, clavicles, and shoulders. There is no demonstrated abnormality of the visualized soft tissue structures of the upper abdomen. RAD/Chest 1 View (Portable) IMPRESSION: Prominent appearance of the right paramediastinal soft tissues although this may represent vascular ectasia lymphadenopathy thyroid enlargement could have this appearance and should be excluded. Recommend consideration for follow up CT scan of the chest to clarify. Mild cardiomegaly. Electronically Signed: Carolina Becker MD at 10:56 EST Tel , Service support ,
--- NOTE | 2018-09-24 10:22 | CT_ITS ---
STUDY: CT BRAIN WITHOUT CONTRAST REASON FOR EXAM: Female, 48 years old. Infusion unresponsive history of narcolepsy diabetes and end-stage renal disease RADIATION DOSAGE (If Supplied By Facility): CTDIvol = ( 44.99 ) mGy, DLP = ( 812.98 ) mGycm TECHNIQUE: Transaxial CT imaging of the brain was performed without administration of intravenous contrast material. Individualized dose optimization techniques were used for this CT. COMPARISON: August 12, 2018 CT scan had FINDINGS: Normal soft tissue structures. Normal calvarium. Normal size ventricles and extra-axial spaces for the patient's age. Normal white matter tracts of the cerebral hemispheres. Normal basal ganglia and thalami. Normal brainstem. Normal cerebellum. There is no intracranial hemorrhage. There are no findings of an acute ischemic infarction. There is a right-sided maxillary mucosal retention cyst opacification of the right frontal sinus. There is postoperative change in the maxillary sinuses. CT/Brain/Head without Contrast IMPRESSION: Normal unenhanced CT scan of the brain. Electronically Signed: Carolina Becker MD at 10:54 EST Tel , Service support ,
[2018-09-24] MEDS: Dextrose 10%-Water 250 ML 40 ML IV ×3 (10:28→22:41)
[2018-09-24 10:29] LABS: Absolute Lymphocyte Count 2.27 X10^3/ul (0.83-4.51); Absolute Neutrophil Count 3.8 X10^3/uL (2.0-7.7); Basophil# 0.02 X10^3/uL; Basophil% 0.3 % (0-1); Eosinophil# 0.24 X10^3/uL; Eosinophils% 3.2 % (0-5); Hematocrit 38.7 % (37-47); Hemoglobin 11.9 g/dl (12.0-15.0); Lymphocyte # 2.27 X10^3/ul (4.0); Lymphocyte % 30.6 % (19-41); Mean Corp Hgb Conc 30.7 g/gl (32-36); Mean Corpuscular Hgb 31.8 pg (27.0-32.0); Mean Corpuscular Volume 103.5 fL (81-99); Mean Platelet Vol. 10.9 fl (6.2-12.0); Monocyte# 1.06 X10^3/uL; Monocyte% 14.3 % (0-10); Neutrophil % 51.3 % (47-70); Platelet Count 192 K/mm3 (150-450); RBC Distribution Width SD 63.5 fl (35.1-43.9); Red Blood Count 3.74 M/mm3 (4.2-5.4); White Blood Count 7.4 K/mm3 (4.4-11.0)
[2018-09-24 10:30] LABS: POSITIVE COUNT NO; POSITIVE DIFFERENTIAL NO; POSITIVE MORPHOLOGY NO
--- NOTE | 2018-09-24 10:32 | ED.DCSUM_ITS ---
- ER Visit Summary Date of Service: 09/24/18 Chief Complaint: [] Unresponsive brought in from home History of Present Illness: The patient is a 48 F [] that the history is very limited apparently per nursing staff the patient's brother brought her in from home in unresponsive condition she is able to get out of the car be placed in a wheelchair on arrival to the resuscitation bay she is a blood pressure of 213/113 she has sinus respirations she does not respond to deep sternal rub, she has a right upper chest dialysis catheter in place, her initial BG T was 70, she was given D50 and she woke and began answering questions, she indicates she is not on insulin, that she missed dialysis yesterday she is indicating that she sounds like she went to sleep feeling fine, and then she does not really recall any issues this morning. At this time she denies head neck chest or abdominal pain indicates that she is tired, she moves the right upper extremity both lower extremities she is not moving the left upper extremity it is not clear if that is a baseline issue for her or something new she has on physical exam what appears to be a healed scar to the mid scalp area etiology that is unclear the right chest dialysis catheter again has movements as above Physical Examination: [] 213/115 99% room air General, no distress resting comfortably HEENT is generally unremarkable The neck is supple no adenopathy Cardiovascular, regular rate and rhythm Lungs, clear bilateral Abdomen, soft nontender Extremities, no clubbing, left upper extremity has what appears to be an old fistula there is no thrill there is no radial pulse the left hand is slightly cooler complaint compared to the right hand Refill slightly diminished and again she has no movement of the left upper extremity from the shoulder elbow wrist or hand Neurologic, awake alert answering questions appropriately moving the right upper extremity and both lower extremity to command she does not move the upper extremity, left upper extremity exam is as above NIH of about 6-8 Test Results: [] Emergency Department Course and Treatment: [] She was immediately started on IV fluids D50, D10 we spoke with nephrology the arranging for immediate dialysis s he has screening labs pending head CT we are trying to determine additional history, her airway is stable On reevaluation she remained stable she has been started on the hyperkalemia protocol as her potassium returned at 6.4 the EKG shows a sinus rhythm no signs of acute abnormalities, head CT and other screening labs are unremarkable see these were reports she is now able to move her left upper extremity, she remains awake and alert complaining of fatigue Treatment Plan: [] Admission and consider ICU stay for dialysis in mental status will discuss with hospitalist Disposition: [] Impression: [] Change in mental status, end-stage renal disease, hypoglycemia, hypertension, This note was generated with [employer] dictation software. It may contain incorrect words, spelling, and punctuation that were not noted in review of the chart prior to signing ED Disposition - Plan for ED Patient: Chief Complaint: Unresponsive Referrals: Mitchell Bowen Chi, MD [Primary Care Provider] -
[2018-09-24 10:48] LABS: Anion Gap 10 (5-15); BUN 82 mg/dL (7-18); BUN/Creat Ratio 8.3 RATIO (10-20); Calcium,Total 9.2 mg/dL (8.5-10.1); Chloride 106 mmol/L (98-107); EST Glomerular Filtration Rate 5 mL/min (>60); Est Glom Filt Rate - Afr Amer 5 mL/min (>60); Estimated Creatinine Clearance 6.13 ml/min; Glucose 77 mg/dL (74-106); Potassium 6.4 mmol/L (3.5-5.1); Sodium Level 142 mmol/L (136-145)
--- NOTE | 2018-09-24 11:20 | HP.PCM_ITS ---
History of Present Illness Date of Admission: 09/24/18 Chief Complaint: altered mental status The patient is a 48 year old F with an extensive past medical history which includes ESRD on hemodialysis, potential, hyperlipidemia, valvular heart disease, lupus with lupus nephritis, diabetes mellitus x2, pulmonary hypertension chronic pain syndrome. She was admitted through the ED on 09/24/2018 with a complaint of altered mental status. Patient was dropped off by her brother who was not available for questions at time of review. According to ED documentation, patient missed dialysis yesterday and brother found her confused and so she was brought in. Patient was unable to give any history even though she was alert but very somnolent. All she kept on seen in response to questions was verenice pride. Unable to do review of systems o/a of confusion. Of note, patient was recently admitted and discharged last month after being admitted for altered mental status. She was managed for acute metabolic encephalopathy which was thought to be drug-induced she was found to have lots of narcotics and benzodiazepines which were . During that admission, she had a CT of the right upper extremity which revealed possible pocket of gas around the site of the dialysis catheter and also had edema extending from the right chest to the right wrist. General surgery was consulted then and cultures done showed Serratia. She was started on IV cefepime which was to continue with dialysis. With this admission, in the ED, vitals were stable. Labs showed potassium of 6.4 and creatinine of 9.9. Initial troponin was 0.047. CBC was unremarkable. Brain CT and chest x-ray were noncontributory. She has been admitted to be managed for acute metabolic encephalopathy and hyperkalemia likely due to uremia from missed dialysis. [] Past Medical History Past Medical History (Chronic Problems): Chronic Problems (Last Reviewed 08/14/18 @ 10:39 by Cesar Sheth MD) Nonrheumatic mitral (valve) insufficiency (Chronic) Secondary pulmonary arterial hypertension (Chronic) Non-rheumatic tricuspid valve insufficiency (Chronic) End stage renal disease (Chronic) Chronic anemia (Chronic) Hypertension (Chronic) Narcolepsy (Chronic) Lupus nephritis (Chronic) Status post kidney and liver biopsy (fatty liver) Degenerative disc disease, cervical (Chronic) Cervical spondylosis (Chronic) Diabetes mellitus, type II (Chronic) SLE (systemic lupus erythematosus) (Chronic) Medical History: Medical History (Last Reviewed 08/14/18 @ 10:39 by Cesar Sheth MD) Nonrheumatic mitral (valve) insufficiency (Chronic) I34.0 Secondary pulmonary arterial hypertension (Chronic) I27.21 Non-rheumatic tricuspid valve insufficiency (Chronic) I36.1 End stage renal disease (Chronic) N18.6 Chronic anemia (Chronic) D64.9 Hypertension (Chronic) I10 Narcolepsy (Chronic) G47.419 Lupus nephritis (Chronic) M32.14 Status post kidney and liver biopsy (fatty liver) Degenerative disc disease, cervical (Chronic) M50.30 Cervical spondylosis (Chronic) M47.812 Diabetes mellitus, type II (Chronic) E11.9 SLE (systemic lupus erythematosus) (Chronic) M32.9 Allergies LONG Inhibitors Allergy (Verified 09/24/18 10:16) Angioedema lisinopril Allergy (Verified 09/24/18 10:16) Angioedema Sulfa (Sulfonamide Antibiotics) Allergy (Verified 09/24/18 10:16) Rash sulfamethoxazole [From Bactrim] Allergy (Verified 09/24/18 10:16) Rash trimethoprim [From Bactrim] Allergy (Verified 09/24/18 10:16) Rash Angioderm Adverse Reaction (Unknown, Uncoded 09/24/18 10:16) Unknown Home Medications: Ambulatory Orders Medication Instructions Recorded Duloxetine Hcl [Cymbalta] 120 mg PO DAILY 10/01/16 Hydroxychloroquine [Plaquenil] 200 mg PO BIDCM 10/01/16 Atorvastatin Calcium [Lipitor] 20 mg PO QHS 01/20/18 Pregabalin [Lyrica] 75 mg PO BID 08/12/18 Sevelamer Carbonate [Renvela] 1,600 mg PO TIDCM 08/12/18 Dextroamphetamine Sulfate 10 mg PO DAILY 08/13/18 [Dexedrine] Dextroamphetamine/Amphetamine 15 mg PO DINNER 08/13/18 [Adderall 15 mg Tablet] Dextroamphetamine/Amphetamine 30 mg PO BREAKFAST 08/13/18 [Adderall 15 mg Tablet] Ergocalciferol (Vitamin D2) 50,000 unit PO QMONTH 08/15/18 [Drisdol] Baclofen 10 mg PO DAILY 09/09/18 Baclofen 20 mg PO QHS 09/09/18 Cevimeline HCl 30 mg PO BID 09/09/18 Cholestyramine (with Sugar) 4 gm PO BID 09/09/18 [Questran Packet] Cyclosporine [Restasis Multidose] 1 drop OP DAILY 09/09/18 Dextran 70/Hypromellose [Nature's 1 drop OP QHS 09/09/18 Tears Eye Drops] Famotidine 10 mg PO DAILY 09/09/18 Fluticasone 0.05% [Flonase Nasal 1 spray NASAL BID 09/09/18 [place]] Folic Acid/Vit B Complex and C 0.8 mg PO DAILY 09/09/18 [Renal-Lobo Tablet] Metoprolol Tartrate [Lopressor 25 mg PO BID 09/09/18 (beta pippa)] Mirtazapine 7.5 mg PO QHS 09/09/18 Prednisone 5 mg PO DAILY 09/09/18 Sucroferric Oxyhydroxide [Velphoro] 500 mg PO TIDCM 09/09/18 Surgical History: Surgical History (Last Reviewed 08/14/18 @ 10:39 by Cesar Sheth MD) History of esophagogastroduodenoscopy (EGD) Z98.890 Presence of surgically created arteriovenous shunt for hemodialysis Onset Date: ~11/2017 Z99.2 S/P colonoscopy Z98.890 S/P lymph node biopsy Z98.890 S/P nasal polypectomy Z98.890 Status post carpal tunnel release Z98.890 Status post insertion of dialysis catheter Z95.828, Z99.2 Status post total hip replacement, bilateral Z96.643 port removed Surgical History: - Smoking Status: Unknown if ever smoked - *Family History Maternal Family History: Family History (Last Reviewed 08/12/18 @ 18:36 by Javi Sanchez DO) Mother Hypertension Kidney disease ALS (amyotrophic lateral sclerosis) Father Heart disease Hypertension Kidney disease Diabetes History Items: Diabetes, High Cholesterol, Heart Disease, Hypertension, Renal Disease, - Paternal Family History: Family History (Last Reviewed 08/12/18 @ 18:36 by Javi Sanchez DO) Mother Hypertension Kidney disease ALS (amyotrophic lateral sclerosis) Father Heart disease Hypertension Kidney disease Diabetes History Items: Diabetes, High Cholesterol, Heart Disease, Hypertension, Renal Disease Sibling Family History: Family History (Last Reviewed 08/12/18 @ 18:36 by Javi Jopperi, DO) Mother Hypertension Kidney disease ALS (amyotrophic lateral sclerosis) Father Heart disease Hypertension Kidney disease Diabetes History Items: Diabetes Review of Systems Unable to obtain accurate/complete ROS d/t: patient very lethargic and unable to answer questions VTE Information - Inpt Only VTE Present on Admission: No VTE Pharm Prophylaxis ordered?: Yes - Physical Exam General: Confused, Lethargic, - - unable to answer any questions, and mumbled incoherently HEENT: Atraumatic, PERRLA, EOMI, Normocephalic Oral: Dry Mucosa Neck: Supple, No JVD, Negative Carotid Bruits Lungs: Clear to auscultation, Normal air movement, No rhonchi, No wheeze, No rales Cardiovascular: Regular rate, Regular Rhythm, Normal S1, Normal S2, No murmurs Abdomen: Bowel Sounds Present, Soft, Non Tender, Non-Distended, No Hepato- splenomegaly, Obese Extremities: No clubbing, No cyanosis, No edema, Capillary Refill Less than 3 Seconds Skin: No rashes, No breakdown Musculoskeletal: No Tenderness to Palpation of Joints or Extremities Lymphatic: No Cervical, Supraclavicular, or Inguinal Adenopathy Neurological: Cranial nerves II-XII grossly intact, - - moves all extremities spontaneously. confused, very lethargic. GCS- 12/15 Psych/Mental Status: - - as under neuro exam Vital Signs Temp Pulse Resp BP Pulse Ox 98.7 F 79 7 L 213/125 H 100 09/24/18 10:12 09/24/18 10:12 09/24/18 10:12 09/24/18 10:12 09/24/18 10:12 Oxygen Flow Rate (L/min) 15 Oxygen Delivery Method Non-Rebreather Weight: 167 lb 8 oz Body Mass Index (BMI) 28.7 Finger Stick Blood Glucose 100 Laboratory Tests Past 24 Hrs 09/24/18 09/24/18 10:21 10:21 WBC 7.4 RBC 3.74 L Hgb 11.9 L Hct 38.7 MCV 103.5 H MCH 31.8 MCHC 30.7 L RDW 17.0 H RDW Differential 63.5 H Plt Count 192 MPV 10.9 Immature Gran % (Auto) 0.300 Neut % (Auto) 51.3 Lymph % (Auto) 30.6 Bureau % (Auto) 14.3 H Eos % (Auto) 3.2 Baso % (Auto) 0.3 Absolute Neuts (auto) 3.8 Absolute Lymphs (auto) 2.27 Total Counted Not Reportable Sodium 142 Potassium 6.4 H* Chloride 106 Carbon Dioxide 26.0 Anion Gap 10 BUN 82 H Creatinine 9.90 H* Estim Creat Clear Calc 6.13 Est GFR (MDRD) Af Amer 5 L Est GFR (MDRD) Non-Af 5 L BUN/Creatinine Ratio 8.3 L Glucose 77 Calcium 9.2 Troponin I 0.047 H Diagnostic Data Chest X-Ray 09/24/18 10:21 IMPRESSION: Prominent appearance of the right paramediastinal soft tissues although this may represent vascular ectasia lymphadenopathy thyroid enlargement could have this appearance and should be excluded. Recommend consideration for follow up CT scan of the chest to clarify. Mild cardiomegaly. Electronically Signed: Carolina Becker MD at 10:56 EST Tel , Service support , Brain CT 09/24/18 10:22 IMPRESSION: Normal unenhanced CT scan of the brain. Electronically Signed: Carolina Becker MD at 10:54 EST Tel , Service support , Assessment/Plan All Active Problems (Last Reviewed 08/14/18 @ 10:39 by Cesar Sheth MD) Extremity edema (Acute) Encephalopathy acute (Acute) 48-year-old female admitted with a complaint of confusion 1. Acute metabolic encephalopathy due to uremia from missed dialysis and hypoglycemia * was brought in by her brother due to altered mental status * missed dialysis yesterday * intial blood glucose was 70. was resuscitated with D50 ampule * CT brain done was negative * on admission to PCU, patient became more obtunded, and was unresponsive.She became more short of breath, so decision was made to transfer her to the ICU immediately. * ABG done showed pH of 7.32, ABG of 54.3, pO 2 of 105. * patient drooling and unable to protect her airway * will therefore intubate to protect airway. * likely that diabetes meds were not metabolised due to missed dialysis * hold diabetes meds * consult nephrology for urgent dialysis * 2. Acute hypercapnic and hypoxic respiratory failure due to fluid overload and narcolepsy * as under 1. * intubated emergently * post intubation CXR ordered * 3. Hyperkalemia due to missed dialysis * K was 6.4; received potassiuim depleting cocktail in ED. * for dialysis today * give kayexalate 30mg once via NG tube * 4. Hypoglycemia * likely due to diabetes meds still in her system after she missed dialysis * hold diabetes meds * ISS * accuchecks ACHS * on D10 60cc/hr * 5. ESRD on hemodialysis, on sevelamer. 6. Lupus and Sjogren's syndrome: On prednisone, hydroxychloroquine and cevimeline 7. Hypertensive urgency: * due to fluid overload from missed dialysis. * On metoprolol. Will resume metoprolol. * IV hydralazine prn. * PO clonidine once via NG tube. Needs urgent dialysis. 8. Depression and anxiety: On Cymbalta and mirtazapine DVT prophylaxis: heparin Critical care 1st hour: 50 mins Code Visit Inpatient E&M: 74113 Init Hosp L3 Procedures: 58946 Critial Care 1st Hr - emergency airway insertion- [id number]
[2018-09-24 11:25] LABS: Bedside Glucose 175 mg/dL (70-110)
[2018-09-24] MEDS: Dextrose 50%-Water 25 GM/50 ML DISP.SYRIN IV ×2 (11:26→21:12)
[2018-09-24] MEDS: Albuterol 2.5 MG/3 ML VIAL.NEB. INHALATION (11:40)
--- NOTE | 2018-09-24 11:42 | CPS ---
Patient snoring, unable to auscultate at this time.
[2018-09-24 12:55] LABS: Bedside Glucose 70 mg/dL (70-110)
--- NOTE | 2018-09-24 13:50 | NURSING ---
Pt arrived to the floor from ER at this time. upon arrival she is arousable only to tactile stimulation, on arousal she will very briefly open her eyes and then fall back to sleep, she has snoring, shallow, respirations at 6-8 per minute. she is drooling. blood glucose checked and is 71. vital signs obtained.
--- NOTE | 2018-09-24 14:20 | NURSING ---
Pt is now more difficulty to arouse and will only grimace to a sternal rub. Pt given one amp of D50 IV at this time, unable to scan the medication as she is not showing up in the computer system at this time. Her respirations are more shallow and she is having periods of apnea. respirations are 6-8 per minute. Pt mouth suctioned as she is drooling and foaming at the mouth, although the pulse ox is reading 98-100% at this time. Dr. Finch notified and pt is to be transferred to ICU.
--- NOTE | 2018-09-24 14:30 | NURSING ---
Pt taken to ICU via bed with this RN and two nursing assistants.
--- NOTE | 2018-09-24 14:40 | NURSING ---
Patient received as a transfer from PCU with RN at bedside. Patient somnolent, sonorous respirations and foaming from mouth. Dr Wolf and RT paged. Dr wolf arrived at bedside and patient was subsequently intubated without complicationns. 1448- 20Mg Etomidate IV given 1450- Intubated per Dr Wolf #[id number], 24 cm at the lip 1455- OG inserted by this RN without complication 1500- CXR obtained for ETT and OG placement verification.
[2018-09-24 14:41] LABS: Bedside Glucose 71 mg/dL (70-110)
[2018-09-24] MEDS: hydrALAZINE 20 MG/ML Vial 10 MG IV (14:41)
[2018-09-24 14:46] LABS: Base Excess 2 mmol/L (-2 to +2); Bicarbonate 27.8 mmol/L (22-26); Blood Gas Specimen Type ART; O2 Delivery Device Nasal Can; PO2 105 mmHG (75-100); SITE L Radial; SO2 97 % (95-99); Time Given 1439; Total Carbon Dioxide 29 mmol/L; pCO2 54.3 mmHg (35-45); pH 7.32 (7.35-7.45)
[2018-09-24] MEDS: Etomidate 20 MG/10 ML Vial IV (14:48)
--- NOTE | 2018-09-24 14:51 | RAD_ITS ---
STUDY: X-RAY CHEST REASON FOR EXAM: Female, 48 years old. Endotracheal tube placement. TECHNIQUE: Single AP portable view of the chest. Current examination was done at 1500 hours. COMPARISON: 09/24/2018, Aleksandra at 1040 hours. FINDINGS: Endotracheal tube tip is at the level of the clavicular heads, 5.4 cm above the haydee. There is a right internal jugular double lumen central venous catheter, probably dialysis catheter, with its tip in the distal superior vena cava. There is a nasogastric tube with its sidehole and tip in the body of the stomach. There is no demonstrated pneumothorax. The lungs are clear and expanded. There is no demonstrated pleural abnormality. The heart is enlarged. Normal mediastinum and malorie. Normal visualized pulmonary arteries. Normal visualized aortic arch and descending thoracic aorta. Normal visualized thoracic spine. Normal visualized ribs, clavicles, and shoulders. There is no demonstrated abnormality of the visualized soft tissue structures of the upper abdomen. RAD/CXR for Line Placement IMPRESSION: Tubes are in adequate position. Cardiomegaly. No evidence for acute cardiopulmonary pathology. Electronically Signed: Kwabena Bueno MD at 20:53 EST , Service support ,
[2018-09-24] MEDS: Propofol 10MG/Ml 1,000 MG/100 ML Bottle 2.279 MG CONT INF (15:00)
[2018-09-24 15:06] LABS: Bedside Glucose 179 mg/dL (70-110)
[2018-09-24 16:10] LABS: Base Excess 2 mmol/L (-2 to +2); Bicarbonate 27.3 mmol/L (22-26); Blood Gas Specimen Type ART; FI02 50; Mode A-C; O2 Delivery Device Vent; PEEP 5; PO2 80 mmHG (75-100); RR 14; SITE L Brachial; SO2 95 % (95-99); Time Given 1558; Total Carbon Dioxide 29 mmol/L; Vt 350; pCO2 45.6 mmHg (35-45); pH 7.39 (7.35-7.45)
[2018-09-24 16:25] LABS: Bedside Glucose 111 mg/dL (70-110)
[2018-09-24 16:45] LABS: Amphetamine Urine VISTA NEGATIVE (<1000 ng/mL); Barbiturate Urine VISTA NEGATIVE (< 200 ng/mL); Benzodiazepine Urine VISTA NEGATIVE (< 200 ng/mL); Cocaine Urine VISTA NEGATIVE (< 300 ng/mL); Ecstacy Urine VISTA NEGATIVE (< 500 ng/mL); Methadone Urine VISTA NEGATIVE (< 300 ng/mL); PCP Urine VISTA NEGATIVE (< 25 ng/mL); THC Urine VISTA NEGATIVE (< 50 ng/mL); Vista UDS pH Range 8
[2018-09-24] MEDS: Heparin Injection (Vial) 5,000 UNIT/ML VIAL 5000 UNIT SC ×2 (17:05→22:24)
[2018-09-24 17:54] LABS: CPK Total, Creatine Kinase 152 U/L (26-192); Triglycerides 136 mg/dL
--- NOTE | 2018-09-24 18:11 | CON.PCM_ITS ---
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 She has been taken off all narcotics but continues to use benzodiazepines. Patient was dropped off by her brother. According to ED documentation, patient missed dialysis yesterday and brother found her confused and so she was brought in. She was subsequently intubated, unresponsive while receiving dialysis. Patient was unable to give any history at time of presentation to ED due to increased somnolence. She has been hospitalized for similar event recently due to hypoglycemic episode. She has been taken off all diabetic medications. She has a history of narcolepsy on adderall. Potassium on admit was elevated at 6.4. CT head unremarkable for acute findings. - Allergies Allergies: Allergies LONG Inhibitors Allergy (Verified 09/24/18 11:36) Angioedema diphenhydramine [From Benadryl] Allergy (Verified 09/24/18 11:36) Unknown lisinopril Allergy (Verified 09/24/18 11:36) Angioedema Sulfa (Sulfonamide Antibiotics) Allergy (Verified 09/24/18 11:36) Rash sulfamethoxazole [From Bactrim] Allergy (Verified 09/24/18 11:36) Rash trimethoprim [From Bactrim] Allergy (Verified 09/24/18 11:36) Rash Angioderm Adverse Reaction (Unknown, Uncoded 09/24/18 11:36) Unknown - Current Medications Current Medications: Current Medications Artificial Tears (Tears Naturale, Artificial Tears) 1 drop OPHTHALMIC QHS ENRIQUE Artificial Tears (Tears Naturale, Artificial Tears) 0 drop OPHTHALMIC Q2H PRN PRN Reason: DRY EYES Atorvastatin Calcium (Lipitor) 20 mg PO QHS ENRIQUE Cholestyramine Resin (Questran 4gm Packet) 4 gm PO BID ENRIQUE Dextrose (D50w Syringe) 0 gm IV X1 PRN; Protocol PRN Reason: Hypoglycemia Duloxetine HCl (Cymbalta) 120 mg PO DAILY [facility] Ergocalciferol (Vitamin D) 50,000 unit PO QMONTH [facility] Famotidine (Pepcid) 10 mg PO DAILY [facility] Fluticasone Propionate (Flonase Nasal Council) 1 spray NASAL BID [facility] Glucagon () 1 mg IM .X1 PRN PRN Reason: Hypoglycemia Heparin Sodium (Porcine) (Heparin Na) 5,000 unit SC Q8 [facility] Last Admin: 09/24/18 17:05 Dose: 5,000 unit Hydralazine HCl (Apresoline Iv) 10 mg IV Q4H PRN PRN PRN Reason: BLOOD PRESSURE ELEVATION Hydroxychloroquine Sulfate (Plaquenil) 200 mg PO BIDCM [facility] Dextrose (Dextrose 10%-Water) 250 mls @ 40 mls/hr IV .Q6H15M [facility] Last Admin: 09/24/18 16:09 Dose: 40 mls/hr Propofol (Diprivan) 1,000 mg in 100 mls @ 2.279 mls/hr CONT INF .Q12H [facility] Last Admin: 09/24/18 15:00 Dose: 2.279 mls/hr Sodium Chloride () 250 mls @ 15 mls/hr IV .[id number] PRN PRN Reason: SALINE FLUSH Insulin Human Lispro (Humalog Kwikpen (Bkc)) 0 unit SQ Q6 [facility]; Protocol Magnesium Hydroxide (Milk Of Magnesia) 30 ml PO DAILY PRN PRN PRN Reason: Constipation Metoprolol Tartrate (Lopressor (Beta Cirilo)) 25 mg PO BID [facility] Mirtazapine (Remeron) 7.5 mg PO QHS [facility] Multivit/Ca Carb/B Cmplx/FA/Prenat (Nephrocaps, Renaphro) 1 capsule PO DAILY@0800 [facility] Non-Formulary Medication (Cevimeline Hcl [Cevimeline Hcl]) 30 mg PO BID [facility] Non-Formulary Medication (Dextroamphetamine Sulfate [Dexedrine]) 10 mg PO DAILY [facility] Non-Formulary Medication (Dextroamphetamine/Amphetamine [Adderall 15 Mg Tablet]) 15 mg PO DINNER [facility] Non-Formulary Medication (Dextroamphetamine/Amphetamine [Adderall 15 Mg Tablet]) 30 mg PO BREAKFAST [facility] Non-Formulary Medication (Sucroferric Oxyhydroxide) 500 mg PO TIDCM ENRIQUE Sevelamer Carbonate (Renvela) 1,600 mg PO TIDCM ENRIQUE Last Admin: 09/24/18 17:17 Dose: Not Given Sodium Chloride () 5 - 15 ml IV UD PRN PRN Reason: SALINE FLUSH - Past Medical History Past Medical History (Chronic Problems): Chronic Problems (Last Reviewed 08/14/18 @ 10:39 by Cesar Sheth MD) Nonrheumatic mitral (valve) insufficiency (Chronic) Secondary pulmonary arterial hypertension (Chronic) Non-rheumatic tricuspid valve insufficiency (Chronic) End stage renal disease (Chronic) Chronic anemia (Chronic) Hypertension (Chronic) Narcolepsy (Chronic) Lupus nephritis (Chronic) Status post kidney and liver biopsy (fatty liver) Degenerative disc disease, cervical (Chronic) Cervical spondylosis (Chronic) Diabetes mellitus, type II (Chronic) SLE (systemic lupus erythematosus) (Chronic) - Past Surgical History Surgical History: - - failed AVF left arm, AVF right arm - Social History Marital Status: Single Smoking Status: Never smoker - Family History Maternal Family History: Family History (Last Reviewed 08/12/18 @ 18:36 by Javi Sanchez DO) Mother Hypertension Kidney disease ALS (amyotrophic lateral sclerosis) Father Heart disease Hypertension Kidney disease Diabetes History Items: Diabetes, High Cholesterol, Heart Disease, Hypertension, Renal Disease, - Paternal Family History: Family History (Last Reviewed 08/12/18 @ 18:36 by Javi Sanchez DO) Mother Hypertension Kidney disease ALS (amyotrophic lateral sclerosis) Father Heart disease Hypertension Kidney disease Diabetes History Items: Diabetes, High Cholesterol, Heart Disease, Hypertension, Renal Disease Sibling Family History: Family History (Last Reviewed 08/12/18 @ 18:36 by Javi Sanchez DO) Mother Hypertension Kidney disease ALS (amyotrophic lateral sclerosis) Father Heart disease Hypertension Kidney disease Diabetes History Items: Diabetes Review of Systems Unable to obtain accurate/complete ROS d/t: pt sedate, on vent. Seen on dialysis. - Physical Exam General: - - sedate on vent, seen on dialysis Lungs: Clear to auscultation, - - on vent Cardiovascular: Regular rate Abdomen: Bowel Sounds Present, Soft, Non Tender, Non-Distended Extremities: Edema - mild upper extrem edema, R>L chronic from central stenosis, - - COREY AVF with weak thrill, +bruit Skin: No rashes Neurological: - - unable to assess Psych/Mental Status: - - sedate Vital Signs Temp Pulse Resp BP Pulse Ox 97.6 F L 95 15 107/71 100 09/24/18 17:00 09/24/18 17:30 09/24/18 17:30 09/24/18 17:00 09/24/18 17:30 Oxygen Flow Rate (L/min) 2 Oxygen Delivery Method Mechanical Ventilator Weight: 67 kg Body Mass Index (BMI) 27.8 Finger Stick Blood Glucose 175 Laboratory Tests Past 24 Hrs 09/24/18 09/24/18 09/24/18 10:21 10:21 10:27 WBC 7.4 RBC 3.74 L Hgb 11.9 L Hct 38.7 MCV 103.5 H MCH 31.8 MCHC 30.7 L RDW 17.0 H RDW Differential 63.5 H Plt Count 192 MPV 10.9 Immature Gran % (Auto) 0.300 Neut % (Auto) 51.3 Lymph % (Auto) 30.6 [place] % (Auto) 14.3 H Eos % (Auto) 3.2 Baso % (Auto) 0.3 Absolute Neuts (auto) 3.8 Absolute Lymphs (auto) 2.27 Total Counted Not Reportable Specimen Type Sample Site pH Bicarbonate Actual POC Total CO2 Base Excess O2 Saturation O2 % ABG pCO2 ABG pO2 [place]o Test Respiration Rate O2 Delivery Device Liter Flow Minute Volume Vent Mode Tidal Volume POC PEEP Blood Gas Notified Whom Blood Gas Notified Time Sodium 142 Potassium 6.4 H* Chloride 106 Carbon Dioxide 26.0 Anion Gap 10 BUN 82 H Creatinine 9.90 H* Estim Creat Clear Calc 6.13 Est GFR (MDRD) Af Amer 5 L Est GFR (MDRD) Non-Af 5 L BUN/Creatinine Ratio 8.3 L Glucose 77 Calcium 9.2 Total Creatine Kinase 152 Troponin I 0.047 H Triglycerides 136 Urine Opiates Screen Urine Methadone Screen Ur Barbiturates Screen Ur Phencyclidine Scrn Ur Amphetamines Screen U Methamphetamin-MDMA U Benzodiazepines Scrn Urine Cocaine Screen U Cannabinoids Screen Ur Drug Screen Comment 09/24/18 09/24/18 09/24/18 14:43 15:45 16:03 WBC RBC Hgb Hct MCV MCH MCHC RDW RDW Differential Plt Count MPV Immature Gran % (Auto) Neut % (Auto) Lymph % (Auto) [place] % (Auto) Eos % (Auto) Baso % (Auto) Absolute Neuts (auto) Absolute Lymphs (auto) Total Counted Specimen Type ART ART Sample Site L Radial L Brachial pH 7.32 L 7.39 Bicarbonate Actual 27.8 H 27.3 H POC Total CO2 29 29 Base Excess 2 2 O2 Saturation 97 95 O2 % 50 ABG pCO2 54.3 H 45.6 H ABG pO2 105 H 80 Romeo Test NA NA Respiration Rate 14 O2 Delivery Device Nasal Can Vent Liter Flow 2.0 Minute Volume 5.00 Vent Mode A-C Tidal Volume 350 POC PEEP 5 Blood Gas Notified Whom ICU ICU Blood Gas Notified Time 1433 1558 Sodium Potassium Chloride Carbon Dioxide Anion Gap BUN Creatinine Estim Creat Clear Calc Est GFR (MDRD) Af Amer Est GFR (MDRD) Non-Af BUN/Creatinine Ratio Glucose Calcium Total Creatine Kinase Troponin I Triglycerides Urine Opiates Screen NEGATIVE Urine Methadone Screen NEGATIVE Ur Barbiturates Screen NEGATIVE Ur Phencyclidine Scrn NEGATIVE Ur Amphetamines Screen NEGATIVE U Methamphetamin-MDMA NEGATIVE U Benzodiazepines Scrn NEGATIVE Urine Cocaine Screen NEGATIVE U Cannabinoids Screen NEGATIVE Ur Drug Screen Comment POC Glucose 09/24/18 09/24/18 09/24/18 16:17 14:35 13:56 POC Glucose 111 H 179 H 71 09/24/18 09/24/18 11:22 10:11 POC Glucose 175 H 70 Clinical Impression(s) from Imaging Studies Chest X-Ray 09/24/18 10:21 IMPRESSION: Prominent appearance of the right paramediastinal soft tissues although this may represent vascular ectasia lymphadenopathy thyroid enlargement could have this appearance and should be excluded. Recommend consideration for follow up CT scan of the chest to clarify. Mild cardiomegaly. Electronically Signed: Carolina Becker MD at 10:56 EST Tel , Service support , Brain CT 09/24/18 10:22 IMPRESSION: Normal unenhanced CT scan of the brain. Electronically Signed: Carolina Becker MD at 10:54 EST Tel , Service support , Assessment/Plan All Active Problems (Last Reviewed 08/14/18 @ 10:39 by Cesar Sheth MD) Extremity edema (Acute) Encephalopathy acute (Acute) 1. ESRD HD MWF. Dialysis today for missed tx yesterday. 2. Hyperkalemia correct with dialysis 3. acute metabolic encephalopathy s/p intubation 4. HTN 5. DM2 6. SLE 7. Narcolepsy 8. Chronic pain 9. Hx cdiff colitis 10. Hx serratia incision infection of Rt arm AVF 11. 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
[2018-09-24] MEDS: Heparin 10,000 UNITS/10 ML Vial IV (19:00)
[2018-09-24 20:31] LABS: Bedside Glucose 42 mg/dL (70-110)
[2018-09-24 20:31] LABS: Bedside Glucose 139 mg/dL (70-110)
[2018-09-24] MEDS: fentaNYL drip 100 ML 5 MCG IV (21:12)
[2018-09-24] MEDS: NEPRO TUBE FEED 1,000 ML 50 ML GT (21:57)
[2018-09-24] MEDS: Mirtazapine 15 MG Tablet 7.5 MG GT (22:37)
[2018-09-24] MEDS: Atorvastatin Calcium 20 MG Tablet GT (22:40)
[2018-09-24] MEDS: Hydroxychloroquine 200 MG Tablet GT (22:40)
[2018-09-24 23:26] LABS: Bedside Glucose 64 mg/dL (70-110)
[2018-09-24 23:26] LABS: Bedside Glucose 117 mg/dL (70-110)
[2018-09-25] VITALS (40 sets, daily range): BP systolic 85–163; BP diastolic 55–94; PULSE 16–114; RESP 14–27; TEMP 37.1–37.9; O2SAT 95–100
[2018-09-25] MEDS: Dextrose 50%-Water 25 GM/50 ML DISP.SYRIN IV (00:07)
[2018-09-25 00:16] LABS: Bedside Glucose 42 mg/dL (70-110)
[2018-09-25 00:35] LABS: Bedside Glucose 192 mg/dL (70-110)
[2018-09-25 02:16] LABS: Bedside Glucose 104 mg/dL (70-110)
--- NOTE | 2018-09-25 04:42 | PCM.PN.BLA ---
Progress Note Patient was admitted for acute metabolic encephalopathy secondary to missing dialysis and hypoglycemia. Nurses called blood her IV line is close to dialysis fistula on R IJ so she needs another IV line. Nurses unable to place an IV on the left arm after many attempts. Attempted right IJ without success.
[2018-09-25] MEDS: Propofol 10MG/Ml 1,000 MG/100 ML Bottle 2.279 MG CONT INF (05:03)
[2018-09-25] MEDS: Dextrose 10%-Water 250 ML 50 ML IV ×4 (05:09→21:24)
[2018-09-25 05:40] LABS: Bedside Glucose 104 mg/dL (70-110)
[2018-09-25 05:45] LABS: Bedside Glucose 103 mg/dL (70-110)
[2018-09-25 06:36] LABS: Absolute Lymphocyte Count 1.34 X10^3/ul (0.83-4.51); Basophil# 0.01 X10^3/uL; Basophil% 0.1 % (0-1); Eosinophil# 0.19 X10^3/uL; Hematocrit 39.6 % (37-47); Hemoglobin 12.3 g/dl (12.0-15.0); Lymphocyte # 1.34 X10^3/ul (4.0); Lymphocyte % 13.9 % (19-41); Mean Corp Hgb Conc 31.1 g/gl (32-36); Mean Corpuscular Hgb 31.9 pg (27.0-32.0); Mean Corpuscular Volume 102.6 fL (81-99); Mean Platelet Vol. 10.4 fl (6.2-12.0); Monocyte# 1.12 X10^3/uL; Monocyte% 11.6 % (0-10); Neutrophil # 6.95 X10^3/uL (2.7-7.7); Neutrophil % 72.2 % (47-70); Platelet Count 174 K/mm3 (150-450); RBC Distribution Width CV 16.9 % (11.6-14.6); RBC Distribution Width SD 62.5 fl (35.1-43.9); Red Blood Count 3.86 M/mm3 (4.2-5.4); White Blood Count 9.6 K/mm3 (4.4-11.0)
[2018-09-25] MEDS: Heparin Injection (Vial) 5,000 UNIT/ML VIAL 5000 UNIT SC ×3 (06:38→21:10)
[2018-09-25 06:39] LABS: POSITIVE COUNT NO; POSITIVE DIFFERENTIAL NO; POSITIVE MORPHOLOGY NO
[2018-09-25 06:57] LABS: Albumin, Serum 3.2 g/dL (3.2-5.0); BUN 41 mg/dL (7-18); BUN/Creat Ratio 5.8 RATIO (10-20); Calcium,Total 9.1 mg/dL (8.5-10.1); Chloride 95 mmol/L (98-107); Creatinine, Serum 7.12 mg/dL (0.55-1.02); EST Glomerular Filtration Rate 7 mL/min (>60); Est Glom Filt Rate - Afr Amer 8 mL/min (>60); Estimated Creatinine Clearance 7.45 ml/min; Glucose 96 mg/dL (74-106); Phosphorus 6.5 mg/dL (2.5-4.9); Potassium 5.4 mmol/L (3.5-5.1); Sodium Level 136 mmol/L (136-145)
[2018-09-25] MEDS: Senna/Docusate Sodium 1 Tablet 2 TABLET PO ×2 (07:00→21:12)
[2018-09-25] MEDS: Polyethylene Glycol 3350 17 GM PACKET PO (07:00)
--- NOTE | 2018-09-25 08:18 | CON.PCM_ITS ---
Problem List (1) Extremity edema Status: Acute (2) Encephalopathy acute Status: Acute (3) Nonrheumatic mitral (valve) insufficiency Status: Chronic (4) Secondary pulmonary arterial hypertension Status: Chronic (5) Non-rheumatic tricuspid valve insufficiency Status: Chronic (6) End stage renal disease Status: Chronic (7) Chronic anemia Status: Chronic (8) Hypertension Status: Chronic Qualifiers: Hypertension type: essential hypertension Qualified Code(s): I10 - Essential (primary) hypertension (9) Narcolepsy Status: Chronic (10) Lupus nephritis Status: Chronic Comment: Status post kidney and liver biopsy (fatty liver) (11) Degenerative disc disease, cervical Status: Chronic (12) Cervical spondylosis Status: Chronic (13) Diabetes mellitus, type II Status: Chronic Qualifiers: Diabetes mellitus complication detail: with other oral complications Qualified Code(s): E11.638 - Type 2 diabetes mellitus with other oral complications (14) SLE (systemic lupus erythematosus) Status: Chronic Reason for Consult Date of Consultation: 09/25/18 Reason for Consultation: Respiratory failure History of Present Illness: The patient is a 48 year old F, with past medical history listed below, who presented to [facility] on 09/24/2018 after being dropped off by her brother secondary to decreased mental status. Patient reportedly had been of her usual health until the day of presentation, but presented with blood pressures of 213/113 and was not responding. Patient's initial BG T in the ER was noted to be 70 and reportedly mental status improved transiently after receiving D50. Patient did admit to missing dialysis the day prior to presentation, but otherwise had no complaints at that time. Patient was eventually admitted to the PCU with a D10 drip. On arrival to the PCU, patient was noted to have significantly depressed mental status. Patient was immediately taken to the intensive care unit and intubated. Patient did receive emergent hemodialysis for an elevated potassium of 6.4. Patient has had significant hypoglycemia overnight requiring D50 repeatedly in addition to the D10 drip. Patient is still not answering questions, sugar has been normalized. Patient did have an attempt at a central line by night hospitalist in the right IJ that was unsuccessful. On my evaluation this morning, patient was placed on a spontaneous breathing trial. Tube feeds were held. Patient's blood pressure is better controlled following hemodialysis. Patient does remain on D10 drip for hypoglycemia. Patient is not able to provide any review of systems at this time. Patient does have a history of intubations with similar type presentation after missing hemodialysis. Patient typically recovers quickly and is discharged within 1-2 days. Past Medical History Past Medical History (Chronic Problems): Chronic Problems (Last Reviewed 08/14/18 @ 10:39 by Cesar Sheth MD) Nonrheumatic mitral (valve) insufficiency (Chronic) Secondary pulmonary arterial hypertension (Chronic) Non-rheumatic tricuspid valve insufficiency (Chronic) End stage renal disease (Chronic) Chronic anemia (Chronic) Hypertension (Chronic) Narcolepsy (Chronic) Lupus nephritis (Chronic) Status post kidney and liver biopsy (fatty liver) Degenerative disc disease, cervical (Chronic) Cervical spondylosis (Chronic) Diabetes mellitus, type II (Chronic) SLE (systemic lupus erythematosus) (Chronic) Medical History: Medical History (Last Reviewed 08/14/18 @ 10:39 by Cesar Sheth MD) Nonrheumatic mitral (valve) insufficiency (Chronic) I34.0 Secondary pulmonary arterial hypertension (Chronic) I27.21 Non-rheumatic tricuspid valve insufficiency (Chronic) I36.1 End stage renal disease (Chronic) N18.6 Chronic anemia (Chronic) D64.9 Hypertension (Chronic) I10 Narcolepsy (Chronic) G47.419 Lupus nephritis (Chronic) M32.14 Status post kidney and liver biopsy (fatty liver) Degenerative disc disease, cervical (Chronic) M50.30 Cervical spondylosis (Chronic) M47.812 Diabetes mellitus, type II (Chronic) E11.9 SLE (systemic lupus erythematosus) (Chronic) M32.9 Allergies LONG Inhibitors Allergy (Verified 09/24/18 11:36) Angioedema diphenhydramine [From Benadryl] Allergy (Verified 09/24/18 11:36) Unknown lisinopril Allergy (Verified 09/24/18 11:36) Angioedema Sulfa (Sulfonamide Antibiotics) Allergy (Verified 09/24/18 11:36) Rash sulfamethoxazole [From Bactrim] Allergy (Verified 09/24/18 11:36) Rash trimethoprim [From Bactrim] Allergy (Verified 09/24/18 11:36) Rash Angioderm Adverse Reaction (Unknown, Uncoded 09/24/18 11:36) Unknown Home Medications: Ambulatory Orders Medication Instructions Recorded Duloxetine Hcl [Cymbalta] 120 mg PO DAILY 10/01/16 Hydroxychloroquine [Plaquenil] 200 mg PO BIDCM 10/01/16 Atorvastatin Calcium [Lipitor] 20 mg PO QHS 01/20/18 Pregabalin [Lyrica] 75 mg PO BID 08/12/18 Sevelamer Carbonate [Renvela] 1,600 mg PO TIDCM 08/12/18 Dextroamphetamine Sulfate 10 mg PO DAILY 08/13/18 [Dexedrine] Dextroamphetamine/Amphetamine 15 mg PO DINNER 08/13/18 [Adderall 15 mg Tablet] Dextroamphetamine/Amphetamine 30 mg PO BREAKFAST 08/13/18 [Adderall 15 mg Tablet] Ergocalciferol (Vitamin D2) 50,000 unit PO QMONTH 08/15/18 [Drisdol] Baclofen 10 mg PO DAILY 09/09/18 Baclofen 20 mg PO QHS 09/09/18 Cevimeline HCl 30 mg PO BID 09/09/18 Cholestyramine (with Sugar) 4 gm PO BID 09/09/18 [Questran Packet] Cyclosporine [Restasis Multidose] 1 drop OP DAILY 09/09/18 Dextran 70/Hypromellose [Nature's 1 drop OP QHS 09/09/18 Tears Eye Drops] Famotidine 10 mg PO DAILY 09/09/18 Fluticasone 0.05% [Flonase Nasal 1 spray NASAL BID 09/09/18 [place]] Folic Acid/Vit B Complex and C 0.8 mg PO DAILY 09/09/18 [Renal-Lobo Tablet] Metoprolol Tartrate [Lopressor 25 mg PO BID 09/09/18 (beta pippa)] Mirtazapine 7.5 mg PO QHS 09/09/18 Prednisone 5 mg PO DAILY 09/09/18 Sucroferric Oxyhydroxide [Velphoro] 500 mg PO TIDCM 09/09/18 Surgical History: Surgical History (Last Reviewed 08/14/18 @ 10:39 by Cesar Sheth MD) History of esophagogastroduodenoscopy (EGD) Z98.890 Presence of surgically created arteriovenous shunt for hemodialysis Onset Date: ~11/2017 Z99.2 S/P colonoscopy Z98.890 S/P lymph node biopsy Z98.890 S/P nasal polypectomy Z98.890 Status post carpal tunnel release Z98.890 Status post insertion of dialysis catheter Z95.828, Z99.2 Status post total hip replacement, bilateral Z96.643 port removed Surgical History: - Smoking Status: Unknown if ever smoked - *Family History Maternal Family History: Family History (Last Reviewed 08/12/18 @ 18:36 by Javi Sanchez DO) Mother Hypertension Kidney disease ALS (amyotrophic lateral sclerosis) Father Heart disease Hypertension Kidney disease Diabetes History Items: Diabetes, High Cholesterol, Heart Disease, Hypertension, Renal Disease, - Paternal Family History: Family History (Last Reviewed 08/12/18 @ 18:36 by Javi Sanchez DO) Mother Hypertension Kidney disease ALS (amyotrophic lateral sclerosis) Father Heart disease Hypertension Kidney disease Diabetes History Items: Diabetes, High Cholesterol, Heart Disease, Hypertension, Renal Disease Sibling Family History: Family History (Last Reviewed 08/12/18 @ 18:36 by Javi Sanchez DO) Mother Hypertension Kidney disease ALS (amyotrophic lateral sclerosis) Father Heart disease Hypertension Kidney disease Diabetes History Items: Diabetes Review of Systems Unable to obtain accurate/complete ROS d/t: See HPI Objective: All imaging was personally reviewed. Chest x-ray shows a right hemodialysis cath with endotracheal tube in appropriate position. No infiltrates are appreci ated. - Physical Exam General: Non-Cooperative, - - Good vent synchrony. Good tidal volumes while on spontaneous breathing trial. HEENT: Atraumatic, PERRLA, EOMI, Normocephalic, - - Facial edema noted. Mild scleral thickening with erythema. No icterus appreciated. Oral: Moist Mucosa, No Gingival or Mucosal Lesions/ Ulcerations Neck: Supple, No Nodes, Trachea Midline, - - Swelling of the face and neck noted Lungs: No rhonchi, No wheeze, No rales, Diminished, - - Symmetric expansion. No dullness to percussion. Cardiovascular: Normal S1, Normal S2, Murmur - Grade 2 out of 6 diastolic ejection murmur at the apex, No rub noted, No Gallop, Tachycardic Abdomen: Bowel Sounds Present, Soft, Non Tender, Non-Distended, Obese Extremities: No clubbing, No cyanosis, Edema - Bilateral upper extremity, right greater than left. No lower extremity edema Skin: No rashes, No breakdown Musculoskeletal: No Tenderness to Palpation of Joints or Extremities Lymphatic: No Cervical, Supraclavicular, or Inguinal Adenopathy Neurological: Neuro grossly intact Psych/Mental Status: Flat Affect Vital Signs Temp Pulse Resp BP Pulse Ox 37.3 C H 102 H 15 146/92 H 96 09/25/18 04:00 09/25/18 07:14 09/25/18 07:14 09/25/18 07:00 09/25/18 07:14 Oxygen Flow Rate (L/min) 2 Oxygen Delivery Method Mechanical Ventilator Weight: 65.8 kg Body Mass Index (BMI) 27.8 Finger Stick Blood Glucose 175 Intake and Output for Last 24 Hours 09/23/18 09/24/18 09/25/18 23:59 23:59 23:59 Intake Total 362 / 362 832 / 832 Output Total 350 / 350 130 / 130 Balance 702 / 702 Laboratory Tests Past 24 Hrs 09/24/18 09/24/18 09/24/18 10:21 10:21 10:27 WBC 7.4 RBC 3.74 L Hgb 11.9 L Hct 38.7 MCV 103.5 H MCH 31.8 MCHC 30.7 L RDW 17.0 H RDW Differential 63.5 H Plt Count 192 MPV 10.9 Immature Gran % (Auto) 0.300 Neut % (Auto) 51.3 Lymph % (Auto) 30.6 Fleming % (Auto) 14.3 H Eos % (Auto) 3.2 Baso % (Auto) 0.3 Absolute Neuts (auto) 3.8 Absolute Lymphs (auto) 2.27 Total Counted Not Reportable Specimen Type Sample Site pH Bicarbonate Actual POC Total CO2 Base Excess O2 Saturation O2 % ABG pCO2 ABG pO2 Romeo Test Respiration Rate O2 Delivery Device Liter Flow Minute Volume Vent Mode Tidal Volume POC PEEP Blood Gas Notified Whom Blood Gas Notified Time Sodium 142 Potassium 6.4 H* Chloride 106 Carbon Dioxide 26.0 Anion Gap 10 BUN 82 H Creatinine 9.90 H* Estim Creat Clear Calc 6.13 Est GFR (MDRD) Af Amer 5 L Est GFR (MDRD) Non-Af 5 L BUN/Creatinine Ratio 8.3 L Glucose 77 Calcium 9.2 Phosphorus Total Creatine Kinase 152 Troponin I 0.047 H Albumin Triglycerides 136 Urine Opiates Screen Urine Methadone Screen Ur Barbiturates Screen Ur Phencyclidine Scrn Ur Amphetamines Screen U Methamphetamin-MDMA U Benzodiazepines Scrn Urine Cocaine Screen U Cannabinoids Screen Ur Drug Screen Comment Hep Bs Antigen 09/24/18 09/24/18 09/24/18 14:43 15:45 16:03 WBC RBC Hgb Hct MCV MCH MCHC RDW RDW Differential Plt Count MPV Immature Gran % (Auto) Neut % (Auto) Lymph % (Auto) Fleming % (Auto) Eos % (Auto) Baso % (Auto) Absolute Neuts (auto) Absolute Lymphs (auto) Total Counted Specimen Type ART ART Sample Site L Radial L Brachial pH 7.32 L 7.39 Bicarbonate Actual 27.8 H 27.3 H POC Total CO2 29 29 Base Excess 2 2 O2 Saturation 97 95 O2 % 50 ABG pCO2 54.3 H 45.6 H ABG pO2 105 H 80 Romeo Test NA NA Respiration Rate 14 O2 Delivery Device Nasal Can Vent Liter Flow 2.0 Minute Volume 5.00 Vent Mode A-C Tidal Volume 350 POC PEEP 5 Blood Gas Notified Whom ICU ICU Blood Gas Notified Time 1434 1558 Sodium Potassium Chloride Carbon Dioxide Anion Gap BUN Creatinine Estim Creat Clear Calc Est GFR (MDRD) Af Amer Est GFR (MDRD) Non-Af BUN/Creatinine Ratio Glucose Calcium Phosphorus Total Creatine Kinase Troponin I Albumin Triglycerides Urine Opiates Screen NEGATIVE Urine Methadone Screen NEGATIVE Ur Barbiturates Screen NEGATIVE Ur Phencyclidine Scrn NEGATIVE Ur Amphetamines Screen NEGATIVE U Methamphetamin-MDMA NEGATIVE U Benzodiazepines Scrn NEGATIVE Urine Cocaine Screen NEGATIVE U Cannabinoids Screen NEGATIVE Ur Drug Screen Comment Hep Bs Antigen 09/25/18 09/25/18 09/25/18 05:30 05:30 05:30 WBC 9.6 RBC 3.86 L Hgb 12.3 Hct 39.6 MCV 102.6 H MCH 31.9 MCHC 31.1 L RDW 16.9 H RDW Differential 62.5 H Plt Count 174 MPV 10.4 Immature Gran % (Auto) 0.200 Neut % (Auto) 72.2 H Lymph % (Auto) 13.9 L Fleming % (Auto) 11.6 H Eos % (Auto) 2.0 Baso % (Auto) 0.1 Absolute Neuts (auto) 7.0 Absolute Lymphs (auto) 1.34 Total Counted Not Reportable Specimen Type Sample Site pH Bicarbonate Actual POC Total CO2 Base Excess O2 Saturation O2 % ABG pCO2 ABG pO2 Romeo Test Respiration Rate O2 Delivery Device Liter Flow Minute Volume Vent Mode Tidal Volume POC PEEP Blood Gas Notified Whom Blood Gas Notified Time Sodium 136 Potassium 5.4 H Chloride 95 L Carbon Dioxide 29.0 Anion Gap BUN 41 H Creatinine 7.12 H Estim Creat Clear Calc 7.45 Est GFR (MDRD) Af Amer 8 L Est GFR (MDRD) Non-Af 7 L BUN/Creatinine Ratio 5.8 L Glucose 96 Calcium 9.1 Phosphorus 6.5 H Total Creatine Kinase Troponin I Albumin 3.2 Triglycerides Urine Opiates Screen Urine Methadone Screen Ur Barbiturates Screen Ur Phencyclidine Scrn Ur Amphetamines Screen U Methamphetamin-MDMA U Benzodiazepines Scrn Urine Cocaine Screen U Cannabinoids Screen Ur Drug Screen Comment Hep Bs Antigen Pending POC Glucose 09/25/18 09/25/18 09/25/18 05:40 03:10 02:07 POC Glucose 103 104 104 09/25/18 09/25/18 09/24/18 00:29 00:00 23:22 POC Glucose 192 H 42 L* 64 L 09/24/18 09/24/18 09/24/18 22:02 20:25 19:53 POC Glucose 117 H 139 H 42 L* 09/24/18 09/24/18 09/24/18 16:17 14:35 13:56 POC Glucose 111 H 179 H 71 09/24/18 09/24/18 11:22 10:11 POC Glucose 175 H 70 Clinical Impression(s) from Imaging Studies Chest X-Ray 09/24/18 10:21 IMPRESSION: Prominent appearance of the right paramediastinal soft tissues although this may represent vascular ectasia lymphadenopathy thyroid enlargement could have this appearance and should be excluded. Recommend consideration for follow up CT scan of the chest to clarify. Mild cardiomegaly. Electronically Signed: Carolina Becker MD at 10:56 EST Tel , Service support , Brain CT 09/24/18 10:22 IMPRESSION: Normal unenhanced CT scan of the brain. Electronically Signed: Carolina Becker MD at 10:54 EST Tel , Service support , Chest X-Ray 09/24/18 14:51 IMPRESSION: Tubes are in adequate position. Cardiomegaly. No evidence for acute cardiopulmonary pathology. Electronically Signed: Kwabena Bueno MD at 20:53 EST , Service support , Assessment/Plan RECOMMENDATIONS: 1. Await results of spontaneous breathing trial 2. Potential hemodialysis, defer to nephrology 3. D10 drip to address hypoglycemia, wean as tolerated 4. Resume anti-hypertensive medications 5. Swallow evaluation if extubated IMPRESSIONS: 1. Acute respiratory failure secondary to acute metabolic encephalopathy secondary to uremia/hypoglycemia Patient with decreased mental status requiring emergent airway stabilization. Patient is currently on a spontaneous breathing trial following hemodialysis. Patient has had lower blood sugars, but is responding to D10 drip. Obtain ABG at the end of the spontaneous breathing trial. Potential extubation later today. 2. Recurrent hypoglycemia/diabetes mellitus type 2 Unclear etiology at this time. Patient does carry a diagnosis of type 2 diabetes mellitus and has been missing hemodialysis treatments. This could lead to accumulation of medications. We will continue to monitor blood sugars closely and wean D10 drip as tolerated. 3. End-stage renal disease with history of noncompliance Patient was significant elevation of creatinine on presentation. Patient does have a history of missing hemodialysis treatments for various reasons. Nephrology has been consulted. Defer to them on timing of repeat hemodialysis sessions. 4. Hypertensive emergency Likely secondary to hypervolemia from missed hemodialysis. Okay to resume baseline medications. Blood pressure is much improved following volume removal with hemodialysis. Would defer to nephrology on initiation of additional antihypertensives versus volume removal. 5. History of noncompliance/lupus/Sjogren's syndrome/cervical spondylitis/chronic immunosuppression/secondary pulmonary hypertension Locates care, management, recovery and prognosis. Patient does have poor venous access at this time. Patient may require port placement for venous access given current situation. Patient is acting as though she has an SVC syndrome, but this would need to be evaluated by a vascular surgeon. Patient does have a history of previous fistula placement. TIME: 45 minutes critical care time spent addressing patient's acute respiratory failure, recurrent hypoglycemia, hypertensive emergency, review of all data and collaboration with care team (6:30 AM to 8:30 AM) Code Visit 9xxxx: [id number] Critical care first hour
--- NOTE | 2018-09-25 09:22 | PCM.PN.HOSP ---
Subjective: Patient seen and examined. She was admitted yesterday with a complaint of acute metabolic encephalopathy due to uremia from missed dialysis. She was very obtunded and was also noted to have hypercapnia and was intubated on account of acute hypoxic and hypercapnic respiratory failure due to acute metabolic encephalopathy from his dialysis. She had dialysis yesterday. Patient remains intubated. She is however arousable. Unable to do review of systems on account of her being intubated. Per discussion with nurse, patient remained hypoglycemic overnight and so D10 infusion had to be continued. Labs and vitals reviewed. Vitals/I&O's: Vital Signs Temp Pulse Resp BP Pulse Ox 99.2 F H 114 H 18 113/69 97 09/25/18 04:00 09/25/18 08:00 09/25/18 08:00 09/25/18 08:00 09/25/18 08:00 Oxygen Flow Rate (L/min) 2 Oxygen Delivery Method Mechanical Ventilator Weight: 145 lb 1.027 oz Body Mass Index (BMI) 27.8 Finger Stick Blood Glucose 175 Intake and Output for Last 24 Hours 09/23/18 09/24/18 09/25/18 23:59 23:59 23:59 Intake Total 362 / 362 882 / 882 Output Total 350 / 350 130 / 130 Balance 752 / 752 General:,alert, intubated, sedated, opens eyes in response to call HEENT: Atraumatic, PERRLA, EOMI, Normocephalic Oral: Dry Mucosa Neck: Supple, No JVD, Negative Carotid Bruits Lungs: Clear to auscultation, Normal air movement, No rhonchi, No wheeze, No rales; intubated, undergoing spontaneous breathing trial Cardiovascular: Regular rate, Regular Rhythm, Normal S1, Normal S2, No murmurs Abdomen: Bowel Sounds Present, Soft, Non Tender, Non-Distended, No Hepato-splenomegaly, Obese Extremities: No clubbing, No cyanosis, No edema, Capillary Refill Less than 3 Seconds Skin: No rashes, No breakdown Musculoskeletal: No Tenderness to Palpation of Joints or Extremities; dialysis catheter in right side of chest Lymphatic: No Cervical, Supraclavicular, or Inguinal Adenopathy Neurological: Cranial nerves II-XII grossly intact, - - moves all extremities spontaneously. Intubated, sedated, RASS score is 0 Psych/Mental Status: - - as under neuro exam Laboratory Results 09/24/18 10:11: POC Glucose 70 09/24/18 10:21: WBC 7.4, RBC 3.74 L, Hgb 11.9 L, Hct 38.7, MCV 103.5 H, MCH 31.8, MCHC 30.7 L, RDW 17.0 H, RDW Differential 63.5 H, Plt Count 192, MPV 10.9, Immature Gran % (Auto) 0.300, Neut % (Auto) 51.3, Lymph % (Auto) 30.6, [place] % (Auto) 14.3 H, Eos % (Auto) 3.2, Baso % (Auto) 0.3, Absolute Neuts (auto) 3.8, Absolute Lymphs (auto) 2.27, Total Counted Not Reportable 09/24/18 10:21: Sodium 142, Potassium 6.4 H*, Chloride 106, Carbon Dioxide 26.0, Anion Gap 10, BUN 82 H, Creatinine 9.90 H*, Estim Creat Clear Calc 6.13, Est GFR (MDRD) Af Amer 5 L, Est GFR (MDRD) Non-Af 5 L, BUN/Creatinine Ratio 8.3 L, Glucose 77, Calcium 9.2, Troponin I 0.047 H 09/24/18 10:27: Total Creatine Kinase 152, Triglycerides 136 09/24/18 11:22: POC Glucose 175 H 09/24/18 13:56: POC Glucose 71 09/24/18 14:35: POC Glucose 179 H 09/24/18 14:43: Specimen Type ART, Sample Site L Radial, pH 7.32 L, Bicarbonate Actual 27.8 H, POC Total CO2 29, Base Excess 2, O2 Saturation 97, ABG pCO2 54.3 H, ABG pO2 105 H, Romeo Test NA, O2 Delivery Device Nasal Can, Liter Flow 2.0, Blood Gas Notified Whom ICU MD, Blood Gas Notified Time 1439 09/24/18 15:45: Urine Opiates Screen NEGATIVE, Urine Methadone Screen NEGATIVE, Ur Barbiturates Screen NEGATIVE, Ur Phencyclidine Scrn NEGATIVE, Ur Amphetamines Screen NEGATIVE, U Methamphetamin-MDMA NEGATIVE, U Benzodiazepines Scrn NEGATIVE, Urine Cocaine Screen NEGATIVE, U Cannabinoids Screen NEGATIVE, Ur Drug Screen Comment 09/24/18 16:03: Specimen Type ART, Sample Site L Brachial, pH 7.39, Bicarbonate Actual 27.3 H, POC Total CO2 29, Base Excess 2, O2 Saturation 95, O2 % 50, ABG pCO2 45.6 H, ABG pO2 80, Romeo Test NA, Respiration Rate 14, O2 Delivery Device Vent, Minute Volume 5.00, Vent Mode A-C, Tidal Volume 350, POC PEEP 5, Blood Gas Notified Whom ICU , Blood Gas Notified Time 1558 09/24/18 16:17: POC Glucose 111 H 09/24/18 19:53: POC Glucose 42 L* 09/24/18 20:25: POC Glucose 139 H 09/24/18 22:02: POC Glucose 117 H 09/24/18 23:22: POC Glucose 64 L 09/25/18 00:00: POC Glucose 42 L* 09/25/18 00:29: POC Glucose 192 H 09/25/18 02:07: POC Glucose 104 09/25/18 03:10: POC Glucose 104 09/25/18 05:30: WBC 9.6, RBC 3.86 L, Hgb 12.3, Hct 39.6, MCV 102.6 H, MCH 31.9, MCHC 31.1 L, RDW 16.9 H, RDW Differential 62.5 H, Plt Count 174, MPV 10.4, Immature Gran % (Auto) 0.200, Neut % (Auto) 72.2 H, Lymph % (Auto) 13.9 L, [place] % (Auto) 11.6 H, Eos % (Auto) 2.0, Baso % (Auto) 0.1, Absolute Neuts (auto) 7.0, Absolute Lymphs (auto) 1.34, Total Counted Not Reportable 09/25/18 05:30: Sodium 136, Potassium 5.4 H, Chloride 95 L, Carbon Dioxide 29.0, BUN 41 H, Creatinine 7.12 H, Estim Creat Clear Calc 7.45, Est GFR (MDRD) Af Amer 8 L, Est GFR (MDRD) Non-Af 7 L, BUN/Creatinine Ratio 5.8 L, Glucose 96, Calcium 9.1, Phosphorus 6.5 H, Albumin 3.2 09/25/18 05:30: Hep Bs Antigen Pending 09/25/18 05:40: POC Glucose [address] 09/24/18 10:22 IMPRESSION: Normal unenhanced CT scan of the brain. Electronically Signed: Carolina Becker MD at 10:54 EST Tel , Service support , Chest X-Ray 09/24/18 14:51 IMPRESSION: Tubes are in adequate position. Cardiomegaly. No evidence for acute cardiopulmonary pathology. Electronically Signed: Kwabena Bueno MD at 20:53 EST , Service support , Current Medications Artificial Tears (Tears Naturale, Artificial Tears) 1 drop OPHTHALMIC QHS [facility] Last Admin: 09/24/18 22:28 Dose: 1 drop Artificial Tears (Tears Naturale, Artificial Tears) 0 drop OPHTHALMIC Q2H PRN PRN Reason: DRY EYES Atorvastatin Calcium (Lipitor) 20 mg GT QHS [facility] Last Admin: 09/24/18 22:40 Dose: 20 mg Chlorhexidine Gluconate () 15 ml PO BID [facility] Cholestyramine Resin (Questran 4gm Packet) 4 gm GT BID [facility] Dextrose (D50w Syringe) 0 gm IV X1 PRN; Protocol PRN Reason: Hypoglycemia Last Admin: 09/25/18 00:07 Dose: 25 gm Duloxetine HCl (Cymbalta) 120 mg PO DAILY [facility] Ergocalciferol (Vitamin D) 50,000 unit PO QMONTH [facility] Famotidine (Pepcid) 10 mg GT DAILY [facility] Fluticasone Propionate (Flonase Nasal [place]) 1 spray NASAL BID [facility] Last Admin: 09/24/18 22:25 Dose: Not Given Glucagon () 1 mg IM .X1 PRN PRN Reason: Hypoglycemia Heparin Sodium (Porcine) (Heparin Na) 5,000 unit SC Q8 [facility] Last Admin: 09/25/18 06:38 Dose: 5,000 unit Hydralazine HCl (Apresoline Iv) 10 mg IV Q4H PRN PRN PRN Reason: BLOOD PRESSURE ELEVATION Hydroxychloroquine S[facility] ([facility]il) [facility] Last Admin: 09/24/18 22:40 Dose: 200 mg Propofol (Diprivan) 1,000 mg in 100 mls @ 2.279 mls/hr CONT INF .Q12H [facility] Last Admin: 09/25/18 05:03 Dose: 2.279 mls/hr Sodium Chloride () 250 mls @ 15 mls/hr IV .[id number] PRN PRN Reason: SALINE FLUSH Fentanyl () 100 mls @ 5 mls/hr IV .Q20H [facility] Last Admin: 09/24/18 21:12 Dose: 5 mls/hr Enteral Nutritional Formula (Nepro Carb Steady) 1,000 mls @ 50 mls/hr GT .Q20H [facility] Last Admin: 09/24/18 21:57 Dose: 50 mls/hr Dextrose (Dextrose 10%-Water) 250 mls @ 50 mls/hr IV .Q5H [facility] Last Admin: 09/25/18 05:09 Dose: 50 mls/hr Insulin Human Lispro (Humalog Kwikpen (Bkc)) 0 unit SQ Q6 [facility]; Protocol Last Admin: 09/25/18 06:38 Dose: Not Given Magnesium Hydroxide (Milk Of Magnesia) 30 ml GT DAILY PRN PRN PRN Reason: Constipation Metoprolol Tartrate (Lopressor (Beta Cirilo)) 25 mg GT BID [facility] Mirtazapine (Remeron) 7.5 mg GT QHS [facility] Last Admin: 09/24/18 22:37 Dose: 7.5 mg Multivit/Ca Carb/B Cmplx/FA/Prenat (Nephrocaps, Renaphro) 1 capsule GT DAILY@0800 [facility] Non-Formulary Medication (Cevimeline Hcl [Cevimeline Hcl]) 30 mg PO BID [facility] Non-Formulary Medication (Dextroamphetamine Sulfate [Dexedrine]) 10 mg PO DAILY [facility] Non-Formulary Medication (Dextroamphetamine/Amphetamine [Adderall 15 Mg Tablet]) 15 mg PO DINNER [facility] Non-Formulary Medication (Dextroamphetamine/Amphetamine [Adderall 15 Mg Tablet]) 30 mg PO BREAKFAST [facility] Non-Formulary Medication (Sucroferric Oxyhydroxide) 500 mg PO TIDCM [facility] Polyethylene Glycol (Miralax) 17 gm PO DAILY [facility] Last Admin: 09/25/18 07:00 Dose: 17 gm Senna/Docusate Sodium (Senokot-S, Dalila-Colace) 2 tablet PO BID [facility] Last Admin: 09/25/18 07:00 Dose: 2 tablet Sevelamer Carbonate (Renvela) 1,600 mg PO TIDCM [facility] Last Admin: 09/24/18 17:17 Dose: Not Given Sodium Chloride () 5 - 15 ml IV UD PRN PRN Reason: SALINE FLUSH Medical Necessity - Tobacco Use Smoking Status: Unknown if ever smoked Assessment/Plan All Active Problems (Last Reviewed 08/14/18 @ 10:39 by Cesar Sheth MD) Extremity edema (Acute) Encephalopathy acute (Acute) 48-year-old female admitted with a complaint of confusion 1. Acute metabolic encephalopathy due to uremia from missed dialysis and hypoglycemia was intubated and sedated to protect her airway as she became unresponsive had dialysis yesterday; nephrology on board diabetes meds still on hold for breathing trial today to see if she can be extubated 2. 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 Hyperkalemia due to missed dialysis K down to 5.4 today; had dialysis yesterday nephrology on board 4. Hypoglycemia remained hypoglycemic overnight still on D10 infusion at 45cc/hr continue monitoring and try to wean off D10 hold diabetes meds 5. ESRD on hemodialysis noncompliant with dialysis. Has had numerous similar admissions o/a of noncompliance with dialysis on sevelamer. nephrology on board 6. Lupus and Sjogren's syndrome: On prednisone, hydroxychloroquine and cevimeline 7. Hypertensive urgency: due to fluid overload from missed dialysis. resolved. BP down to 113/69 this morning continue metoprolol IV hydralazine prn 8. Depression and anxiety: On Cymbalta and mirtazapine DVT prophylaxis: heparin Code Visit Inpatient E&M: 94837 Subs Hosp L3
[2018-09-25] MEDS: Metoprolol Tartrate 25 MG Tablet GT ×2 (09:26→21:12)
[2018-09-25] MEDS: Famotidine 20 MG Tablet 10 MG GT (09:27)
[2018-09-25] MEDS: DULoxetine Hcl 60 MG Capsule 120 MG PO (09:27)
--- NOTE | 2018-09-25 09:27 | PN_ITS ---
Subjective: Patient seen and examined. She was admitted yesterday with a complaint of acute metabolic encephalopathy due to uremia from missed dialysis. She was very obtunded and was also noted to have hypercapnia and was intubated on account of acute hypoxic and hypercapnic respiratory failure due to acute metabolic encephalopathy from his dialysis. She had dialysis yesterday. Patient remains intubated. She is however arousable. Unable to do review of systems on account of her being intubated. Per discussion with nurse, patient remained hypoglycemic overnight and so D10 infusion had to be continued. Labs and vitals reviewed. Vitals/I&O's: Vital Signs Temp Pulse Resp BP Pulse Ox 99.2 F H 114 H 18 113/69 97 09/25/18 04:00 09/25/18 08:00 09/25/18 08:00 09/25/18 08:00 09/25/18 08:00 Oxygen Flow Rate (L/min) 2 Oxygen Delivery Method Mechanical Ventilator Weight: 145 lb 1.027 oz Body Mass Index (BMI) 27.8 Finger Stick Blood Glucose 175 Intake and Output for Last 24 Hours 09/23/18 09/24/18 09/25/18 23:59 23:59 23:59 Intake Total 362 / 362 882 / 882 Output Total 350 / 350 130 / 130 Balance 752 / 752 General:,alert, intubated, sedated, opens eyes in response to call HEENT: Atraumatic, PERRLA, EOMI, Normocephalic Oral: Dry Mucosa Neck: Supple, No JVD, Negative Carotid Bruits Lungs: Clear to auscultation, Normal air movement, No rhonchi, No wheeze, No rales; intubated, undergoing spontaneous breathing trial Cardiovascular: Regular rate, Regular Rhythm, Normal S1, Normal S2, No murmurs Abdomen: Bowel Sounds Present, Soft, Non Tender, Non-Distended, No Hepato- splenomegaly, Obese Extremities: No clubbing, No cyanosis, No edema, Capillary Refill Less than 3 Seconds Skin: No rashes, No breakdown Musculoskeletal: No Tenderness to Palpation of Joints or Extremities; dialysis catheter in right side of chest Lymphatic: No Cervical, Supraclavicular, or Inguinal Adenopathy Neurological: Cranial nerves II-XII grossly intact, - - moves all extremities spontaneously. Intubated, sedated, RASS score is 0 Psych/Mental Status: - - as under neuro exam Laboratory Results 09/24/18 10:11: POC Glucose 70 09/24/18 10:21: WBC 7.4, RBC 3.74 L, Hgb 11.9 L, Hct 38.7, MCV 103.5 H, MCH 31.8, MCHC 30.7 L, RDW 17.0 H, RDW Differential 63.5 H, Plt Count 192, MPV 10.9, Immature Gran % (Auto) 0.300, Neut % (Auto) 51.3, Lymph % (Auto) 30.6, [place] % (Auto) 14.3 H, Eos % (Auto) 3.2, Baso % (Auto) 0.3, Absolute Neuts (auto) 3.8, Absolute Lymphs (auto) 2.27, Total Counted Not Reportable 09/24/18 10:21: Sodium 142, Potassium 6.4 H*, Chloride 106, Carbon Dioxide 26.0, Anion Gap 10, BUN 82 H, Creatinine 9.90 H*, Estim Creat Clear Calc 6.13, Est GFR (MDRD) Af Amer 5 L, Est GFR (MDRD) Non-Af 5 L, BUN/Creatinine Ratio 8.3 L, Glucose 77, Calcium 9.2, Troponin I 0.047 H 09/24/18 10:27: Total Creatine Kinase 152, Triglycerides 136 09/24/18 11:22: POC Glucose 175 H 09/24/18 13:56: POC Glucose 71 09/24/18 14:35: POC Glucose 179 H 09/24/18 14:43: Specimen Type ART, Sample Site L Radial, pH 7.32 L, Bicarbonate Actual 27.8 H, POC Total CO2 29, Base Excess 2, O2 Saturation 97, ABG pCO2 54.3 H, ABG pO2 105 H, Romeo Test NA, O2 Delivery Device Nasal Can, Liter Flow 2.0, Blood Gas Notified Whom ICU MD, Blood Gas Notified Time 1439 09/24/18 15:45: Urine Opiates Screen NEGATIVE, Urine Methadone Screen NEGATIVE, Ur Barbiturates Screen NEGATIVE, Ur Phencyclidine Scrn NEGATIVE, Ur Amphetamines Screen NEGATIVE, U Methamphetamin-MDMA NEGATIVE, U Benzodiazepines Scrn NEGATIVE, Urine Cocaine Screen NEGATIVE, U Cannabinoids Screen NEGATIVE, Ur Drug Screen Comment 09/24/18 16:03: Specimen Type ART, Sample Site L Brachial, pH 7.39, Bicarbonate Actual 27.3 H, POC Total CO2 29, Base Excess 2, O2 Saturation 95, O2 % 50, ABG pCO2 45.6 H, ABG pO2 80, Romeo Test NA, Respiration Rate 14, O2 Delivery Device Vent, Minute Volume 5.00, Vent Mode A-C, Tidal Volume 350, POC PEEP 5, Blood Gas Notified Whom ICU , Blood Gas Notified Time 1558 09/24/18 16:17: POC Glucose 111 H 09/24/18 19:53: POC Glucose 42 L* 09/24/18 20:25: POC Glucose 139 H 09/24/18 22:02: POC Glucose 117 H 09/24/18 23:22: POC Glucose 64 L 09/25/18 00:00: POC Glucose 42 L* 09/25/18 00:29: POC Glucose 192 H 09/25/18 02:07: POC Glucose 104 09/25/18 03:10: POC Glucose 104 09/25/18 05:30: WBC 9.6, RBC 3.86 L, Hgb 12.3, Hct 39.6, MCV 102.6 H, MCH 31.9, MCHC 31.1 L, RDW 16.9 H, RDW Differential 62.5 H, Plt Count 174, MPV 10.4, Immature Gran % (Auto) 0.200, Neut % (Auto) 72.2 H, Lymph % (Auto) 13.9 L, [place] % (Auto) 11.6 H, Eos % (Auto) 2.0, Baso % (Auto) 0.1, Absolute Neuts (auto) 7.0, Absolute Lymphs (auto) 1.34, Total Counted Not Reportable 09/25/18 05:30: Sodium 136, Potassium 5.4 H, Chloride 95 L, Carbon Dioxide 29.0, BUN 41 H, Creatinine 7.12 H, Estim Creat Clear Calc 7.45, Est GFR (MDRD) Af Amer 8 L, Est GFR (MDRD) Non-Af 7 L, BUN/Creatinine Ratio 5.8 L, Glucose 96, Calcium 9.1, Phosphorus 6.5 H, Albumin 3.2 09/25/18 05:30: Hep Bs Antigen Pending 09/25/18 05:40: POC Glucose [address] 09/24/18 10:22 IMPRESSION: Normal unenhanced CT scan of the brain. Electronically Signed: Carolina Becker MD at 10:54 EST Tel , Service support , Chest X-Ray 09/24/18 14:51 IMPRESSION: Tubes are in adequate position. Cardiomegaly. No evidence for acute cardiopulmonary pathology. Electronically Signed: Kwabena Bueno MD at 20:53 EST , Service support , Current Medications Artificial Tears (Tears Naturale, Artificial Tears) 1 drop OPHTHALMIC QHS REPLACED BY [facility] Last Admin: 09/24/18 22:28 Dose: 1 drop Artificial Tears (Tears Naturale, Artificial Tears) 0 drop OPHTHALMIC Q2H PRN PRN Reason: DRY EYES Atorvastatin Calcium (Lipitor) 20 mg GT QHS [facility]PL[facility]ED [facility] Last Admin: 09/24/18 22:40 Dose: 20 mg Chlorhexidine Gluconate () 15 ml PO BID [facility] Cholestyramine Resin (Questran 4gm Packet) 4 gm GT BID [facility]PL[facility] Dextrose (D50w Syringe) 0 gm IV X1 PRN; Protocol PRN Reason: Hypoglycemia Last Admin: 09/25/18 00:07 Dose: 25 gm Duloxetine HCl (Cymbalta) 120 mg PO DAILY [facility]PL[facility] Ergocalciferol (Vitamin D) 50,000 unit PO QMONTH REPLACED BY [facility] Famotidine (Pepcid) 10 mg GT DAILY [facility]PL[facility] Fluticasone Propionate (Flonase Nasal [place]) 1 spray NASAL BID [facility] Last Admin: 09/24/18 22:25 Dose: Not Given Glucagon () 1 mg IM .X1 PRN PRN Reason: Hypoglycemia Heparin Sodium (Porcine) (Heparin Na) 5,000 unit SC Q8 [facility] Last Admin: 09/25/18 06:38 Dose: 5,000 unit Hydralazine HCl (Apresoline Iv) 10 mg IV Q4H PRN PRN PRN Reason: BLOOD PRESSURE ELEVATION Hydroxychloroquine [facility]ate ([facility]aquenil) [facility] Last Admin: 09/24/18 22:40 Dose: 200 mg Propofol (Diprivan) 1,000 mg in 100 mls @ 2.279 mls/hr CONT INF .Q12H [facility] Last Admin: 09/25/18 05:03 Dose: 2.279 mls/hr Sodium Chloride () 250 mls @ 15 mls/hr IV .[id number] PRN PRN Reason: SALINE FLUSH Fentanyl () 100 mls @ 5 mls/hr IV .Q20H [facility]PL[facility]ED [facility] Last Admin: 09/24/18 21:12 Dose: 5 mls/hr Enteral Nutritional Formula (Nepro Carb Steady) 1,000 mls @ 50 mls/hr GT .Q20H REPLACED BY [facility] Last Admin: 09/24/18 21:57 Dose: 50 mls/hr Dextrose (Dextrose 10%-Water) 250 mls @ 50 mls/hr IV .Q5H [facility]PL[facility]ED [facility] Last Admin: 09/25/18 05:09 Dose: 50 mls/hr Insulin Human Lispro (Humalog Kwikpen (Bkc)) 0 unit SQ Q6 [facility]; Protocol Last Admin: 09/25/18 06:38 Dose: Not Given Magnesium Hydroxide (Milk Of Magnesia) 30 ml GT DAILY PRN PRN PRN Reason: Constipation Metoprolol Tartrate (Lopressor (Beta Cirilo)) 25 mg GT BID [facility]PLAC[facility] Mirtazapine (Remeron) 7.5 mg GT QHS REPLACED BY [facility] Last Admin: 09/24/18 22:37 Dose: 7.5 mg Multivit/Ca Carb/B Cmplx/FA/Prenat (Nephrocaps, Renaphro) 1 capsule GT DAILY@0800 REPLACED BY [facility] Non-Formulary Medication (Cevimeline Hcl [Cevimeline Hcl]) 30 mg PO BID REPLACED BY [facility] Non-Formulary Medication (Dextroamphetamine Sulfate [Dexedrine]) 10 mg PO DAILY REPLAC[facility] Non-Formulary Medication (Dextroamphetamine/Amphetamine [Adderall 15 Mg Tablet]) 15 mg PO DINNER REPLACED BY [facility] Non-Formulary Medication (Dextroamphetamine/Amphetamine [Adderall 15 Mg Tablet]) 30 mg PO BREAKFAST REPLACED BY [facility] Non-Formulary Medication (Sucroferric Oxyhydroxide) 500 mg PO TIDCM REPLACED BY [facility] Polyethylene Glycol (Miralax) 17 gm PO DAILY [facility]PL[facility] Last Admin: 09/25/18 07:00 Dose: 17 gm Senna/Docusate Sodium (Senokot-S, Dalila-Colace) 2 tablet PO BID REPLACED BY [facility] Last Admin: 09/25/18 07:00 Dose: 2 tablet Sevelamer Carbonate (Renvela) 1,600 mg PO TIDCM REPLACED BY [facility] Last Admin: 09/24/18 17:17 Dose: Not Given Sodium Chloride () 5 - 15 ml IV UD PRN PRN Reason: SALINE FLUSH Medical Necessity - Tobacco Use Smoking Status: Unknown if ever smoked Assessment/Plan All Active Problems (Last Reviewed 08/14/18 @ 10:39 by Cesar Sheth MD) Extremity edema (Acute) Encephalopathy acute (Acute) 48-year-old female admitted with a complaint of confusion 1. Acute metabolic encephalopathy due to uremia from missed dialysis and hypoglycemia * was intubated and sedated to protect her airway as she became unresponsive * had dialysis yesterday; * nephrology on board * diabetes meds still on hold * for breathing trial today to see if she can be extubated * 2. 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 Hyperkalemia due to missed dialysis * K down to 5.4 today; had dialysis yesterday * nephrology on board * 4. Hypoglycemia * remained hypoglycemic overnight * still on D10 infusion at 45cc/hr * continue monitoring and try to wean off D10 * hold diabetes meds * 5. ESRD on hemodialysis * noncompliant with dialysis. Has had numerous similar admissions o/a of noncompliance with dialysis * on sevelamer. * nephrology on board 6. Lupus and Sjogren's syndrome: On prednisone, hydroxychloroquine and cevimeline 7. Hypertensive urgency: * due to fluid overload from missed dialysis. * resolved. BP down to 113/69 this morning * continue metoprolol * IV hydralazine prn 8. Depression and anxiety: On Cymbalta and mirtazapine DVT prophylaxis: heparin Code Visit Inpatient E&M: 79614 Subs Hosp L3
[2018-09-25] MEDS: SEVELAMER CARBONATE 800 MG TABLET 1600 MG PO ×3 (09:28→18:19)
[2018-09-25] MEDS: Folic Acid/Vitamin B Comp W-C 1 Capsule 1 CAP GT (09:32)
[2018-09-25] MEDS: Hydroxychloroquine 200 MG Tablet GT ×2 (09:33→18:09)
[2018-09-25] MEDS: Chlorhexidine 15 ML PO ×2 (09:34→21:13)
[2018-09-25] MEDS: Fluticasone 0.05% 1 SPRAY NASAL.SRY NASAL (09:34)
[2018-09-25] MEDS: Cholestyramine/Sucrose 4 GM/PACKET GT ×2 (09:34→21:10)
[2018-09-25 10:11] LABS: Bedside Glucose 123 mg/dL (70-110)
[2018-09-25] MEDS: CHLORHEXIDINE GLUC 2% CLOTH 1 EACH TOWELETTE TOPICAL (10:58)
[2018-09-25 11:06] LABS: Bedside Glucose 113 mg/dL (70-110)
[2018-09-25 18:00] LABS: Bedside Glucose 112 mg/dL (70-110)
[2018-09-25] MEDS: Atorvastatin Calcium 20 MG Tablet GT (21:12)
[2018-09-25] MEDS: Mirtazapine 15 MG Tablet 7.5 MG GT (21:13)
[2018-09-26] VITALS (36 sets, daily range): BP systolic 76–154; BP diastolic 53–97; PULSE 83–115; RESP 10–26; TEMP 37.1–37.6; O2SAT 99–100
[2018-09-26 00:41] LABS: Bedside Glucose 99 mg/dL (70-110)
[2018-09-26] MEDS: Dextrose 10%-Water 250 ML 50 ML IV ×4 (03:11→19:30)
[2018-09-26 05:51] LABS: Bedside Glucose 105 mg/dL (70-110)
[2018-09-26] MEDS: Heparin Injection (Vial) 5,000 UNIT/ML VIAL 5000 UNIT SC ×3 (06:17→21:23)
[2018-09-26] MEDS: CHLORHEXIDINE GLUC 2% CLOTH 1 EACH TOWELETTE TOPICAL (06:18)
[2018-09-26 06:33] LABS: Albumin, Serum 2.7 g/dL (3.2-5.0); BUN 52 mg/dL (7-18); BUN/Creat Ratio 6.1 RATIO (10-20); Calcium,Total 8.8 mg/dL (8.5-10.1); Chloride 89 mmol/L (98-107); Creatinine, Serum 8.47 mg/dL (0.55-1.02); EST Glomerular Filtration Rate 5 mL/min (>60); Est Glom Filt Rate - Afr Amer 7 mL/min (>60); Estimated Creatinine Clearance 6.26 ml/min; Glucose 109 mg/dL (74-106); Phosphorus 7.2 mg/dL (2.5-4.9); Sodium Level 127 mmol/L (136-145)
--- NOTE | 2018-09-26 06:49 | PCM.PN.INT ---
Subjective: The patient was seen and examined at the bedside this morning. Events from the last 24 hours have been reviewed. The patient is currently afebrile, hemodynamically stable and maintaining appropriate oxygen saturations with an FiO2 requirement of 30%. All sedation is currently on hold. The patient is doing well on a spontaneous breathing trial at the current time. Potassium is elevated this morning to 6.0. Creatinine is increased to 8.47. The patient is currently being prepped for dialysis this morning. Objective: The patient's most recent lab work, culture data and imaging studies have all been personally reviewed. General: Alert, Cooperative, - - Currently tolerating CPAP mode mechanical ventilation without issue. HEENT: Atraumatic, PERRLA, Normocephalic Oral: No Gingival or Mucosal Lesions/ Ulcerations Neck: Supple, No Nodes, Trachea Midline Lungs: No rhonchi, No wheeze, No rales, Diminished Cardiovascular: Regular rate, Regular Rhythm, Normal S1, Normal S2, Murmur Abdomen: Bowel Sounds Present, Soft, Non Tender Extremities: No clubbing, No cyanosis Skin: No breakdown Musculoskeletal: No Tenderness to Palpation of Joints or Extremities Lymphatic: No Cervical, Supraclavicular, or Inguinal Adenopathy Neurological: Neuro grossly intact Vital Signs Temp Pulse Resp BP Pulse Ox 37.3 C 87 10 L 139/85 H 100 09/26/18 04:00 09/26/18 06:00 09/26/18 06:00 09/26/18 06:00 09/26/18 06:00 Oxygen Flow Rate (L/min) 3 Oxygen Delivery Method Mechanical Ventilator Weight: 149 lb 7.574 oz Body Mass Index (BMI) 27.8 Finger Stick Blood Glucose 175 Intake and Output for Last 24 Hours 09/24/18 09/25/18 09/26/18 23:59 23:59 23:59 Intake Total 362 / 362 2562 / 2562 1323 / 1323 Output Total 350 / 350 405 / 405 350 / 350 Balance 2157 / 2157 973 / 973 Labs (Last 48 Hours) 09/24/18 09/24/18 09/24/18 10:11 10:21 10:21 WBC 7.4 RBC 3.74 L Hgb 11.9 L Hct 38.7 MCV 103.5 H MCH 31.8 MCHC 30.7 L RDW 17.0 H RDW Differential 63.5 H Plt Count 192 MPV 10.9 Immature Gran % (Auto) 0.300 Neut % (Auto) 51.3 Lymph % (Auto) 30.6 [place] % (Auto) 14.3 H Eos % (Auto) 3.2 Baso % (Auto) 0.3 Absolute Neuts (auto) 3.8 Absolute Lymphs (auto) 2.27 Total Counted Not Reportable Specimen Type Sample Site pH Bicarbonate Actual POC Total CO2 Base Excess O2 Saturation O2 % ABG pCO2 ABG pO2 Romeo Test Respiration Rate O2 Delivery Device Liter Flow Minute Volume Vent Mode Tidal Volume POC PEEP Blood Gas Notified Whom Blood Gas Notified Time Sodium 142 Potassium 6.4 H* Chloride 106 Carbon Dioxide 26.0 Anion Gap 10 BUN 82 H Creatinine 9.90 H* Estim Creat Clear Calc 6.13 Est GFR (MDRD) Af Amer 5 L Est GFR (MDRD) Non-Af 5 L BUN/Creatinine Ratio 8.3 L Glucose 77 Calcium 9.2 Phosphorus Total Creatine Kinase Troponin I 0.047 H Albumin Triglycerides Urine Opiates Screen Urine Methadone Screen Ur Barbiturates Screen Ur Phencyclidine Scrn Ur Amphetamines Screen U Methamphetamin-MDMA U Benzodiazepines Scrn Urine Cocaine Screen U Cannabinoids Screen Ur Drug Screen Comment Hep Bs Antigen POC Glucose 70 09/24/18 09/24/18 09/24/18 10:27 11:22 13:56 WBC RBC Hgb Hct MCV MCH MCHC RDW RDW Differential Plt Count MPV Immature Gran % (Auto) Neut % (Auto) Lymph % (Auto) [place] % (Auto) Eos % (Auto) Baso % (Auto) Absolute Neuts (auto) Absolute Lymphs (auto) Total Counted Specimen Type Sample Site pH Bicarbonate Actual POC Total CO2 Base Excess O2 Saturation O2 % ABG pCO2 ABG pO2 Romeo Test Respiration Rate O2 Delivery Device Liter Flow Minute Volume Vent Mode Tidal Volume POC PEEP Blood Gas Notified Whom Blood Gas Notified Time Sodium Potassium Chloride Carbon Dioxide Anion Gap BUN Creatinine Estim Creat Clear Calc Est GFR (MDRD) Af Amer Est GFR (MDRD) Non-Af BUN/Creatinine Ratio Glucose Calcium Phosphorus Total Creatine Kinase 152 Troponin I Albumin Triglycerides 136 Urine Opiates Screen Urine Methadone Screen Ur Barbiturates Screen Ur Phencyclidine Scrn Ur Amphetamines Screen U Methamphetamin-MDMA U Benzodiazepines Scrn Urine Cocaine Screen U Cannabinoids Screen Ur Drug Screen Comment Hep Bs Antigen POC Glucose 175 H 71 09/24/18 09/24/18 09/24/18 14:35 14:43 15:45 WBC RBC Hgb Hct MCV MCH MCHC RDW RDW Differential Plt Count MPV Immature Gran % (Auto) Neut % (Auto) Lymph % (Auto) [place] % (Auto) Eos % (Auto) Baso % (Auto) Absolute Neuts (auto) Absolute Lymphs (auto) Total Counted Specimen Type ART Sample Site L Radial pH 7.32 L Bicarbonate Actual 27.8 H POC Total CO2 29 Base Excess 2 O2 Saturation 97 O2 % ABG pCO2 54.3 H ABG pO2 105 H Romeo Test NA Respiration Rate O2 Delivery Device Nasal Can Liter Flow 2.0 Minute Volume Vent Mode Tidal Volume POC PEEP Blood Gas Notified Whom ICU Blood Gas Notified Time 1439 Sodium Potassium Chloride Carbon Dioxide Anion Gap BUN Creatinine Estim Creat Clear Calc Est GFR (MDRD) Af Amer Est GFR (MDRD) Non-Af BUN/Creatinine Ratio Glucose Calcium Phosphorus Total Creatine Kinase Troponin I Albumin Triglycerides Urine Opiates Screen NEGATIVE Urine Methadone Screen NEGATIVE Ur Barbiturates Screen NEGATIVE Ur Phencyclidine Scrn NEGATIVE Ur Amphetamines Screen NEGATIVE U Methamphetamin-MDMA NEGATIVE U Benzodiazepines Scrn NEGATIVE Urine Cocaine Screen NEGATIVE U Cannabinoids Screen NEGATIVE Ur Drug Screen Comment Hep Bs Antigen POC Glucose 179 H 09/24/18 09/24/18 09/24/18 16:03 16:17 19:53 WBC RBC Hgb Hct MCV MCH MCHC RDW RDW Differential Plt Count MPV Immature Gran % (Auto) Neut % (Auto) Lymph % (Auto) [place] % (Auto) Eos % (Auto) Baso % (Auto) Absolute Neuts (auto) Absolute Lymphs (auto) Total Counted Specimen Type ART Sample Site L Brachial pH 7.39 Bicarbonate Actual 27.3 H POC Total CO2 29 Base Excess 2 O2 Saturation 95 O2 % 50 ABG pCO2 45.6 H ABG pO2 80 Romeo Test NA Respiration Rate 14 O2 Delivery Device Vent Liter Flow Minute Volume 5.00 Vent Mode A-C Tidal Volume 350 POC PEEP 5 Blood Gas Notified Whom ICU Blood Gas Notified Time 1558 Sodium Potassium Chloride Carbon Dioxide Anion Gap BUN Creatinine Estim Creat Clear Calc Est GFR (MDRD) Af Amer Est GFR (MDRD) Non-Af BUN/Creatinine Ratio Glucose Calcium Phosphorus Total Creatine Kinase Troponin I Albumin Triglycerides Urine Opiates Screen Urine Methadone Screen Ur Barbiturates Screen Ur Phencyclidine Scrn Ur Amphetamines Screen U Methamphetamin-MDMA U Benzodiazepines Scrn Urine Cocaine Screen U Cannabinoids Screen Ur Drug Screen Comment Hep Bs Antigen POC Glucose 111 H 42 L* 09/24/18 09/24/18 09/24/18 20:25 22:02 23:22 WBC RBC Hgb Hct MCV MCH MCHC RDW RDW Differential Plt Count MPV Immature Gran % (Auto) Neut % (Auto) Lymph % (Auto) [place] % (Auto) Eos % (Auto) Baso % (Auto) Absolute Neuts (auto) Absolute Lymphs (auto) Total Counted Specimen Type Sample Site pH Bicarbonate Actual POC Total CO2 Base Excess O2 Saturation O2 % ABG pCO2 ABG pO2 [place]o Test Respiration Rate O2 Delivery Device Liter Flow Minute Volume Vent Mode Tidal Volume POC PEEP Blood Gas Notified Whom Blood Gas Notified Time Sodium Potassium Chloride Carbon Dioxide Anion Gap BUN Creatinine Estim Creat Clear Calc Est GFR (MDRD) Af Amer Est GFR (MDRD) Non-Af BUN/Creatinine Ratio Glucose Calcium Phosphorus Total Creatine Kinase Troponin I Albumin Triglycerides Urine Opiates Screen Urine Methadone Screen Ur Barbiturates Screen Ur Phencyclidine Scrn Ur Amphetamines Screen U Methamphetamin-MDMA U Benzodiazepines Scrn Urine Cocaine Screen U Cannabinoids Screen Ur Drug Screen Comment Hep Bs Antigen POC Glucose 139 H 117 H 64 L 09/25/18 09/25/18 09/25/18 00:00 00:29 02:07 WBC RBC Hgb Hct MCV MCH MCHC RDW RDW Differential Plt Count MPV Immature Gran % (Auto) Neut % (Auto) Lymph % (Auto) [place] % (Auto) Eos % (Auto) Baso % (Auto) Absolute Neuts (auto) Absolute Lymphs (auto) Total Counted Specimen Type Sample Site pH Bicarbonate Actual POC Total CO2 Base Excess O2 Saturation O2 % ABG pCO2 ABG pO2 [place]o Test Respiration Rate O2 Delivery Device Liter Flow Minute Volume Vent Mode Tidal Volume POC PEEP Blood Gas Notified Whom Blood Gas Notified Time Sodium Potassium Chloride Carbon Dioxide Anion Gap BUN Creatinine Estim Creat Clear Calc Est GFR (MDRD) Af Amer Est GFR (MDRD) Non-Af BUN/Creatinine Ratio Glucose Calcium Phosphorus Total Creatine Kinase Troponin I Albumin Triglycerides Urine Opiates Screen Urine Methadone Screen Ur Barbiturates Screen Ur Phencyclidine Scrn Ur Amphetamines Screen U Methamphetamin-MDMA U Benzodiazepines Scrn Urine Cocaine Screen U Cannabinoids Screen Ur Drug Screen Comment Hep Bs Antigen POC Glucose 42 L* 192 H 104 09/25/18 09/25/18 09/25/18 03:10 05:30 05:30 WBC 9.6 RBC 3.86 L Hgb 12.3 Hct 39.6 MCV 102.6 H MCH 31.9 MCHC 31.1 L RDW 16.9 H RDW Differential 62.5 H Plt Count 174 MPV 10.4 Immature Gran % (Auto) 0.200 Neut % (Auto) 72.2 H Lymph % (Auto) 13.9 L [place] % (Auto) 11.6 H Eos % (Auto) 2.0 Baso % (Auto) 0.1 Absolute Neuts (auto) 7.0 Absolute Lymphs (auto) 1.34 Total Counted Not Reportable Specimen Type Sample Site pH Bicarbonate Actual POC Total CO2 Base Excess O2 Saturation O2 % ABG pCO2 ABG pO2 Romeo Test Respiration Rate O2 Delivery Device Liter Flow Minute Volume Vent Mode Tidal Volume POC PEEP Blood Gas Notified Whom Blood Gas Notified Time Sodium 136 Potassium 5.4 H Chloride 95 L Carbon Dioxide 29.0 Anion Gap BUN 41 H Creatinine 7.12 H Estim Creat Clear Calc 7.45 Est GFR (MDRD) Af Amer 8 L Est GFR (MDRD) Non-Af 7 L BUN/Creatinine Ratio 5.8 L Glucose 96 Calcium 9.1 Phosphorus 6.5 H Total Creatine Kinase Troponin I Albumin 3.2 Triglycerides Urine Opiates Screen Urine Methadone Screen Ur Barbiturates Screen Ur Phencyclidine Scrn Ur Amphetamines Screen U Methamphetamin-MDMA U Benzodiazepines Scrn Urine Cocaine Screen U Cannabinoids Screen Ur Drug Screen Comment Hep Bs Antigen POC Glucose 104 09/25/18 09/25/18 09/25/18 05:30 05:40 10:02 WBC RBC Hgb Hct MCV MCH MCHC RDW RDW Differential Plt Count MPV Immature Gran % (Auto) Neut % (Auto) Lymph % (Auto) [place] % (Auto) Eos % (Auto) Baso % (Auto) Absolute Neuts (auto) Absolute Lymphs (auto) Total Counted Specimen Type Sample Site pH Bicarbonate Actual POC Total CO2 Base Excess O2 Saturation O2 % ABG pCO2 ABG pO2 Romeo Test Respiration Rate O2 Delivery Device Liter Flow Minute Volume Vent Mode Tidal Volume POC PEEP Blood Gas Notified Whom Blood Gas Notified Time Sodium Potassium Chloride Carbon Dioxide Anion Gap BUN Creatinine Estim Creat Clear Calc Est GFR (MDRD) Af Amer Est GFR (MDRD) Non-Af BUN/Creatinine Ratio Glucose Calcium Phosphorus Total Creatine Kinase Troponin I Albumin Triglycerides Urine Opiates Screen Urine Methadone Screen Ur Barbiturates Screen Ur Phencyclidine Scrn Ur Amphetamines Screen U Methamphetamin-MDMA U Benzodiazepines Scrn Urine Cocaine Screen U Cannabinoids Screen Ur Drug Screen Comment Hep Bs Antigen Pending POC Glucose 103 123 H 09/25/18 09/25/18 09/26/18 11:00 17:56 00:27 WBC RBC Hgb Hct MCV MCH MCHC RDW RDW Differential Plt Count MPV Immature Gran % (Auto) Neut % (Auto) Lymph % (Auto) [place] % (Auto) Eos % (Auto) Baso % (Auto) Absolute Neuts (auto) Absolute Lymphs (auto) Total Counted Specimen Type Sample Site pH Bicarbonate Actual POC Total CO2 Base Excess O2 Saturation O2 % ABG pCO2 ABG pO2 Romeo Test Respiration Rate O2 Delivery Device Liter Flow Minute Volume Vent Mode Tidal Volume POC PEEP Blood Gas Notified Whom Blood Gas Notified Time Sodium Potassium Chloride Carbon Dioxide Anion Gap BUN Creatinine Estim Creat Clear Calc Est GFR (MDRD) Af Amer Est GFR (MDRD) Non-Af BUN/Creatinine Ratio Glucose Calcium Phosphorus Total Creatine Kinase Troponin I Albumin Triglycerides Urine Opiates Screen Urine Methadone Screen Ur Barbiturates Screen Ur Phencyclidine Scrn Ur Amphetamines Screen U Methamphetamin-MDMA U Benzodiazepines Scrn Urine Cocaine Screen U Cannabinoids Screen Ur Drug Screen Comment Hep Bs Antigen POC Glucose 113 H 112 H 99 09/26/18 09/26/18 04:10 05:41 WBC RBC Hgb Hct MCV MCH MCHC RDW RDW Differential Plt Count MPV Immature Gran % (Auto) Neut % (Auto) Lymph % (Auto) [place] % (Auto) Eos % (Auto) Baso % (Auto) Absolute Neuts (auto) Absolute Lymphs (auto) Total Counted Specimen Type Sample Site pH Bicarbonate Actual POC Total CO2 Base Excess O2 Saturation O2 % ABG pCO2 ABG pO2 [place]o Test Respiration Rate O2 Delivery Device Liter Flow Minute Volume Vent Mode Tidal Volume POC PEEP Blood Gas Notified Whom Blood Gas Notified Time Sodium 127 L Potassium 6.0 H* Chloride 89 L Carbon Dioxide 26.0 Anion Gap BUN 52 H Creatinine 8.47 H* Estim Creat Clear Calc 6.26 Est GFR (MDRD) Af Amer 7 L Est GFR (MDRD) Non-Af 5 L BUN/Creatinine Ratio 6.1 L Glucose 109 H Calcium 8.8 Phosphorus 7.2 H Total Creatine Kinase Troponin I Albumin 2.7 L Triglycerides Urine Opiates Screen Urine Methadone Screen Ur Barbiturates Screen Ur Phencyclidine Scrn Ur Amphetamines Screen U Methamphetamin-MDMA U Benzodiazepines Scrn Urine Cocaine Screen U Cannabinoids Screen Ur Drug Screen Comment Hep Bs Antigen POC Glucose 105 Clinical Impression(s) from Imaging Studies Chest X-Ray 09/24/18 10:21 IMPRESSION: Prominent appearance of the right paramediastinal soft tissues although this may represent vascular ectasia lymphadenopathy thyroid enlargement could have this appearance and should be excluded. Recommend consideration for follow up CT scan of the chest to clarify. Mild cardiomegaly. Electronically Signed: Carolina Becker MD at 10:56 EST Tel , Service support , Brain CT 09/24/18 10:22 IMPRESSION: Normal unenhanced CT scan of the brain. Electronically Signed: Carolina Becker MD at 10:54 EST Tel , Service support , Chest X-Ray 09/24/18 14:51 IMPRESSION: Tubes are in adequate position. Cardiomegaly. No evidence for acute cardiopulmonary pathology. Electronically Signed: Kwabena Bueno MD at 20:53 EST , Service support , Medical Necessity - Tobacco Use Smoking Status: Unknown if ever smoked Assessment/Plan All Active Problems (Last Reviewed 08/14/18 @ 10:39 by Cesar Sheth MD) Extremity edema (Acute) Encephalopathy acute (Acute) RECOMMENDATIONS: 1. Continue spontaneous mode of mechanical ventilation. We will consider extubation once dialysis session is completed. 2. Continue hemodialysis support per nephrology recommendations. 3. Continue dextrose drip pending stabilization and blood glucose readings 4. Continue to hold sedating medications and tube feeds. 5. Physical therapy evaluation this afternoon once extubated. IMPRESSIONS: 1. Acute respiratory failure secondary to metabolic encephalopathy in the setting of uremia and hypoglycemia The patient was intubated in the setting of metabolic encephalopathy. This has improved with invasive mechanical ventilation and hemodialysis. At this time, the patient is tolerating spontaneous mode of mechanical ventilation. She would be a candidate for a trial of extubation, once her hemodialysis session is completed this morning. We will continue to hold tube feeds and sedating medications until that time. 2. Persistent hypoglycemia/diabetes mellitus type 2 Potentially secondary to excessive insulin intake. We will continue current supportive measures with dextrose infusion pending stabilization and blood glucose levels. 3. End-stage renal disease with history of medical noncompliance Continue hemodialysis per nephrology recommendations. 4. History of noncompliance/lupus/Sjogren's syndrome/chronic immunosuppression/secondary pulmonary hypertension Complicates care, management, recovery and prognosis. Resume home medications as indicated. Physical therapy to evaluate patient once extubated. TIME: 40 minutes of critical care time, independent of procedures, was spent addressing the patient's acute respiratory failure, metabolic encephalopathy, persistent hypoglycemia, end-stage renal disease, review of all data and collaboration with the care team. ([id number]) Code Visit [id number]: [id number] Critical care first hour
--- NOTE | 2018-09-26 08:29 | PCM.PN.HOSP ---
Subjective: Patient is a 48-year-old with history of 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 Patient had apparently missed dialysis. Patient was found to be uremic on admission in addition she was noted to have acute hypoxic And hypoxic respiratory failure resulting in patient being intubated and admitted to the intensive care unit Seen in the ICU patient getting dialyzed Objective: GENERAL: Awake on the vent HEENT: Atraumatic; G-tube in place EYES; conjunctiva edema NECK; supple, normal thyroid, RESPIRATORY: Diminished to auscultation bilaterally, CARDIOVASCULAR: Regular S1 S2, no audible murmurs GI: soft, non-tender, normoactive bowel sounds, : No Renal angle tenderness; EXTREMITIES: No edema, no clubbing, no cyanosis. MUSCULOSKELETAL: No Joint Tenderness; no muscle waisting NEURO: On the vent SKIN: No Rash PSYCH; unable to assess Vitals/I&O's: Vital Signs Temp Pulse Resp BP Pulse Ox 98.9 F 86 10 L 130/75 H 100 09/26/18 08:00 09/26/18 08:00 09/26/18 08:00 09/26/18 08:00 09/26/18 08:00 Oxygen Flow Rate (L/min) 3 Oxygen Delivery Method Mechanical Ventilator Weight: 67.8 kg Body Mass Index (BMI) 27.8 Finger Stick Blood Glucose 175 Intake and Output for Last 24 Hours 09/24/18 09/25/18 09/26/18 23:59 23:59 23:59 Intake Total 362 / 362 2562 / 2562 1323 / 1323 Output Total 350 / 350 405 / 405 350 / 350 Balance 2157 / 2157 973 / 973 Laboratory Results 09/25/18 10:02: POC Glucose 123 H 09/25/18 11:00: POC Glucose 113 H 09/25/18 17:56: POC Glucose 112 H 09/26/18 00:27: POC Glucose 99 09/26/18 04:10: Sodium 127 L, Potassium 6.0 H*, Chloride 89 L, Carbon Dioxide 26.0, BUN 52 H, Creatinine 8.47 H*, Estim Creat Clear Calc 6.26, Est GFR (MDRD) Af Amer 7 L, Est GFR (MDRD) Non-Af 5 L, BUN/Creatinine Ratio 6.1 L, Glucose 109 H, Calcium 8.8, Phosphorus 7.2 H, Albumin 2.7 L 09/26/18 05:41: POC Glucose 105 Current Medications Artificial Tears (Tears Naturale, Artificial Tears) 1 drop OPHTHALMIC QHS [facility] Last Admin: 09/25/18 21:14 Dose: 1 drop Artificial Tears (Tears Naturale, Artificial Tears) 0 drop OPHTHALMIC Q2H PRN PRN Reason: DRY EYES Atorvastatin Calcium (Lipitor) 20 mg GT QHS [facility] Last Admin: 09/25/18 21:12 Dose: 20 mg Chlorhexidine Gluconate () 15 ml PO BID [facility] Last Admin: 09/25/18 21:13 Dose: 15 ml Chlorhexidine Gluconate () 1 each TOPICAL DAILY [facility] Last Admin: 09/26/18 06:18 Dose: 1 each Cholestyramine Resin (Questran 4gm Packet) 4 gm GT BID [facility] Last Admin: 09/25/18 21:10 Dose: 4 gm Dextrose (D50w Syringe) 0 gm IV X1 PRN; Protocol PRN Reason: Hypoglycemia Last Admin: 09/25/18 00:07 Dose: 25 gm Duloxetine HCl (Cymbalta) 120 mg PO DAILY [facility] Last Admin: 09/25/18 09:27 Dose: 120 mg Ergocalciferol (Vitamin D) 50,000 unit PO QMONTH [facility] Famotidine (Pepcid) 10 mg GT DAILY [facility] Last Admin: 09/25/18 09:27 Dose: 10 mg Fluticasone Propionate (Flonase Nasal [place]) 1 spray NASAL BID [facility] Last Admin: 09/25/18 21:13 Dose: Not Given Glucagon () 1 mg IM .X1 PRN PRN Reason: Hypoglycemia Heparin Sodium (Porcine) (Heparin Na) 5,000 unit SC Q8 [facility] Last Admin: 09/26/18 06:17 Dose: 5,000 unit Hydralazine HCl (Apresoline Iv) 10 mg IV Q4H PRN PRN PRN Reason: BLOOD PRESSURE ELEVATION Hydroxychloroquine Sulfate (Plaquenil) 200 mg GT BIDCM [facility] Last Admin: 09/25/18 18:09 Dose: 200 mg Propofol (Diprivan) 1,000 mg in 100 mls @ 2.279 mls/hr CONT INF .Q12H [facility] Last Admin: 09/26/18 06:12 Dose: Not Given Sodium Chloride () 250 mls @ 15 mls/hr IV .[id number] PRN PRN Reason: SALINE FLUSH Fentanyl () 100 mls @ 5 mls/hr IV .Q20H [facility] Last Admin: 09/24/18 21:12 Dose: 5 mls/hr Enteral Nutritional Formula (Nepro Carb Steady) 1,000 mls @ 50 mls/hr GT .Q20H [facility] Last Admin: 09/25/18 18:10 Dose: Not Given Dextrose (Dextrose 10%-Water) 250 mls @ 50 mls/hr IV .Q5H [facility] Last Admin: 09/26/18 06:16 Dose: Not Given Insulin Human Lispro (Humalog Kwikpen (Bkc)) 0 unit SQ Q6 [facility]; Protocol Last Admin: 09/26/18 06:12 Dose: Not Given Magnesium Hydroxide (Milk Of Magnesia) 30 ml GT DAILY PRN PRN PRN Reason: Constipation Metoprolol Tartrate (Lopressor (Beta Cirilo)) 25 mg GT BID [facility] Last Admin: 09/25/18 21:12 Dose: 25 mg Mirtazapine (Remeron) 7.5 mg GT QHS [facility] Last Admin: 09/25/18 21:13 Dose: 7.5 mg Multivit/Ca Carb/B Cmplx/FA/Prenat (Nephrocaps, Renaphro) 1 capsule GT DAILY@0800 [facility] Last Admin: 09/25/18 09:32 Dose: 1 capsule Polyethylene Glycol (Miralax) 17 gm PO DAILY [facility] Last Admin: 09/25/18 07:00 Dose: 17 gm Senna/Docusate Sodium (Senokot-S, Dalila-Colace) 2 tablet PO BID [facility] Last Admin: 09/25/18 21:12 Dose: 2 tablet Sevelamer Carbonate (Renvela) 1,600 mg PO TIDCM [facility] Last Admin: 09/25/18 18:19 Dose: 1,600 mg Sodium Chloride () 5 - 15 ml IV UD PRN PRN Reason: SALINE FLUSH Medical Necessity - Tobacco Use Smoking Status: Unknown if ever smoked Assessment/Plan All Active Problems (Last Reviewed 08/14/18 @ 10:39 by Cesar Sheth MD) Extremity edema (Acute) Encephalopathy acute (Acute) Patient is a 48-year-old with history of 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 Patient had apparently missed dialysis. Patient was found to be uremic on admission in addition she was noted to have acute hypoxic And hypoxic respiratory failure resulting in patient being intubated and admitted to the intensive care unit 1. Acute metabolic encephalopathy multifactorial including uremia from his dialysis hypoglycemia as well as apnea and hypoxia 2. Acute hypercapnic and hypoxic respiratory failure as a result of fluid overload patient was intubated admitted to the intensive care unit with consultation placed to pulmonary/intensive care vent management deferred 3. Hyperkalemia in the context of ESRD being treated with dialysis 4. Type 1 diabetes with complication including hypoglycemia patient was managed with D10 5. SLE with complications including lupus nephritis patient is on prednisone, hydroxychloroquine and cevimeline 6. Sjogren's syndrome 7. End-stage renal disease currently on hemodialysis 8. Dyslipidemia-patient is on statin therapy, continued at home dose 9. Hypertension: BP stable, continue with home meds 10. Anemia secondary to anemia of chronic disease as well as chronic kidney disease H&H stable monitoring plan is to transfuse if patient becomes symptomatic or hemoglobin falls below 7 11. DVT prophylaxis: Subcu heparin. Active Medications Artificial Tears (Tears Naturale, Artificial Tears) 1 drop OPHTHALMIC QHS [facility] Last Admin: 09/25/18 21:14 Dose: 1 drop Artificial Tears (Tears Naturale, Artificial Tears) 0 drop OPHTHALMIC Q2H PRN PRN Reason: DRY EYES Atorvastatin Calcium (Lipitor) 20 mg GT QHS [facility] Last Admin: 09/25/18 21:12 Dose: 20 mg Chlorhexidine Gluconate () 15 ml PO BID [facility] Last Admin: 09/25/18 21:13 Dose: 15 ml Chlorhexidine Gluconate () 1 each TOPICAL DAILY [facility] Last Admin: 09/26/18 06:18 Dose: 1 each Cholestyramine Resin (Questran 4gm Packet) 4 gm GT BID [facility] Last Admin: 09/25/18 21:10 Dose: 4 gm Dextrose (D50w Syringe) 0 gm IV X1 PRN; Protocol PRN Reason: Hypoglycemia Last Admin: 09/25/18 00:07 Dose: 25 gm Duloxetine HCl (Cymbalta) 120 mg PO DAILY [facility] Last Admin: 09/25/18 09:27 Dose: 120 mg Ergocalciferol (Vitamin D) 50,000 unit PO QMONTH [facility] Famotidine (Pepcid) 10 mg GT DAILY [facility] Last Admin: 09/25/18 09:27 Dose: 10 mg Fluticasone Propionate (Flonase Nasal [place]) 1 spray NASAL BID [facility] Last Admin: 09/25/18 21:13 Dose: Not Given Glucagon () 1 mg IM .X1 PRN PRN Reason: Hypoglycemia Heparin Sodium (Porcine) (Heparin Na) 5,000 unit SC Q8 [facility] Last Admin: 09/26/18 06:17 Dose: 5,000 unit Hydralazine HCl (Apresoline Iv) 10 mg IV Q4H PRN PRN PRN Reason: BLOOD PRESSURE ELEVATION Hydroxychloroquine Sulfate (Plaquenil) 200 mg GT BIDCM [facility] Last Admin: 09/25/18 18:09 Dose: 200 mg Propofol (Diprivan) 1,000 mg in 100 mls @ 2.279 mls/hr CONT INF .Q12H [facility] Last Admin: 09/26/18 06:12 Dose: Not Given Sodium Chloride () 250 mls @ 15 mls/hr IV .[id number] PRN PRN Reason: SALINE FLUSH Fentanyl () 100 mls @ 5 mls/hr IV .Q20H [facility] Last Admin: 09/24/18 21:12 Dose: 5 mls/hr Enteral Nutritional Formula (Nepro Carb Steady) 1,000 mls @ 50 mls/hr GT .Q20H [facility] Last Admin: 09/25/18 18:10 Dose: Not Given Dextrose (Dextrose 10%-Water) 250 mls @ 50 mls/hr IV .Q5H [facility] Last Admin: 09/26/18 06:16 Dose: Not Given Insulin Human Lispro (Humalog Kwikpen (Bkc)) 0 unit SQ Q6 [facility]; Protocol Last Admin: 09/26/18 06:12 Dose: Not Given Magnesium Hydroxide (Milk Of Magnesia) 30 ml GT DAILY PRN PRN PRN Reason: Constipation Metoprolol Tartrate (Lopressor (Beta Cirilo)) 25 mg GT BID [facility] Last Admin: 09/25/18 21:12 Dose: 25 mg Mirtazapine (Remeron) 7.5 mg GT QHS [facility] Last Admin: 09/25/18 21:13 Dose: 7.5 mg Multivit/Ca Carb/B Cmplx/FA/Prenat (Nephrocaps, Renaphro) 1 capsule GT DAILY@0800 [facility] Last Admin: 09/25/18 09:32 Dose: 1 capsule Polyethylene Glycol (Miralax) 17 gm PO DAILY [facility] Last Admin: 09/25/18 07:00 Dose: 17 gm Senna/Docusate Sodium (Senokot-S, Dalila-Colace) 2 tablet PO BID [facility] Last Admin: 09/25/18 21:12 Dose: 2 tablet Sevelamer Carbonate (Renvela) 1,600 mg PO TIDCM [facility] Last Admin: 09/25/18 18:19 Dose: 1,600 mg Sodium Chloride () 5 - 15 ml IV UD PRN PRN Reason: SALINE FLUSH Clinical Impression(s) from Imaging Studies Chest X-Ray 09/24/18 10:21 IMPRESSION: Prominent appearance of the right paramediastinal soft tissues although this may represent vascular ectasia lymphadenopathy thyroid enlargement could have this appearance and should be excluded. Recommend consideration for follow up CT scan of the chest to clarify. Mild cardiomegaly. Electronically Signed: Carolina Becker MD at 10:56 EST Tel , Service support , Brain CT 09/24/18 10:22 IMPRESSION: Normal unenhanced CT scan of the brain. Electronically Signed: Carolina Becker MD at 10:54 EST Tel , Service support , Chest X-Ray 09/24/18 14:51 IMPRESSION: Tubes are in adequate position. Cardiomegaly. No evidence for acute cardiopulmonary pathology. Electronically Signed: Kwabena Bueno MD at 20:53 EST , Service support , Code Visit Inpatient E&M: [id number] [facility] Hosp L3
--- NOTE | 2018-09-26 08:33 | PN_ITS ---
Subjective: Patient is a 48-year-old with history of 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 Patient had apparently missed dialysis. Patient was found to be uremic on admission in addition she was noted to have acute hypoxic And hypoxic respiratory failure resulting in patient being intubated and admitted to the intensive care unit Seen in the ICU patient getting dialyzed Objective: GENERAL: Awake on the vent HEENT: Atraumatic; G-tube in place EYES; conjunctiva edema NECK; supple, normal thyroid, RESPIRATORY: Diminished to auscultation bilaterally, CARDIOVASCULAR: Regular S1 S2, no audible murmurs GI: soft, non-tender, normoactive bowel sounds, : No Renal angle tenderness; EXTREMITIES: No edema, no clubbing, no cyanosis. MUSCULOSKELETAL: No Joint Tenderness; no muscle waisting NEURO: On the vent SKIN: No Rash PSYCH; unable to assess Vitals/I&O's: Vital Signs Temp Pulse Resp BP Pulse Ox 98.9 F 86 10 L 130/75 H 100 09/26/18 08:00 09/26/18 08:00 09/26/18 08:00 09/26/18 08:00 09/26/18 08:00 Oxygen Flow Rate (L/min) 3 Oxygen Delivery Method Mechanical Ventilator Weight: 67.8 kg Body Mass Index (BMI) 27.8 Finger Stick Blood Glucose 175 Intake and Output for Last 24 Hours 09/24/18 09/25/18 09/26/18 23:59 23:59 23:59 Intake Total 362 / 362 2562 / 2562 1323 / 1323 Output Total 350 / 350 405 / 405 350 / 350 Balance 2157 / 2157 973 / 973 Laboratory Results 09/25/18 10:02: POC Glucose 123 H 09/25/18 11:00: POC Glucose 113 H 09/25/18 17:56: POC Glucose 112 H 09/26/18 00:27: POC Glucose 99 09/26/18 04:10: Sodium 127 L, Potassium 6.0 H*, Chloride 89 L, Carbon Dioxide 26.0, BUN 52 H, Creatinine 8.47 H*, Estim Creat Clear Calc 6.26, Est GFR (MDRD) Af Amer 7 L, Est GFR (MDRD) Non-Af 5 L, BUN/Creatinine Ratio 6.1 L, Glucose 109 H, Calcium 8.8, Phosphorus 7.2 H, Albumin 2.7 L 09/26/18 05:41: POC Glucose 105 Current Medications Artificial Tears (Tears Naturale, Artificial Tears) 1 drop OPHTHALMIC QHS [facility] Last Admin: 09/25/18 21:14 Dose: 1 drop Artificial Tears (Tears Naturale, Artificial Tears) 0 drop OPHTHALMIC Q2H PRN PRN Reason: DRY EYES Atorvastatin Calcium (Lipitor) 20 mg GT QHS [facility] Last Admin: 09/25/18 21:12 Dose: 20 mg Chlorhexidine Gluconate () 15 ml PO BID [facility] Last Admin: 09/25/18 21:13 Dose: 15 ml Chlorhexidine Gluconate () 1 each TOPICAL DAILY [facility] Last Admin: 09/26/18 06:18 Dose: 1 each Cholestyramine Resin (Questran 4gm Packet) 4 gm GT BID [facility] Last Admin: 09/25/18 21:10 Dose: 4 gm Dextrose (D50w Syringe) 0 gm IV X1 PRN; Protocol PRN Reason: Hypoglycemia Last Admin: 09/25/18 00:07 Dose: 25 gm Duloxetine HCl (Cymbalta) 120 mg PO DAILY [facility] Last Admin: 09/25/18 09:27 Dose: 120 mg Ergocalciferol (Vitamin D) 50,000 unit PO QMONTH [facility] Famotidine (Pepcid) 10 mg GT DAILY [facility] Last Admin: 09/25/18 09:27 Dose: 10 mg Fluticasone Propionate (Flonase Nasal [place]) 1 spray NASAL BID [facility] Last Admin: 09/25/18 21:13 Dose: Not Given Glucagon () 1 mg IM .X1 PRN PRN Reason: Hypoglycemia Heparin Sodium (Porcine) (Heparin Na) 5,000 unit SC Q8 [facility] Last Admin: 09/26/18 06:17 Dose: 5,000 unit Hydralazine HCl (Apresoline Iv) 10 mg IV Q4H PRN PRN PRN Reason: BLOOD PRESSURE ELEVATION Hydroxychloroquine Sulfate (Plaquenil) 200 mg GT BIDCM [facility] Last Admin: 09/25/18 18:09 Dose: 200 mg Propofol (Diprivan) 1,000 mg in 100 mls @ 2.279 mls/hr CONT INF .Q12H [facility] Last Admin: 09/26/18 06:12 Dose: Not Given Sodium Chloride () 250 mls @ 15 mls/hr IV .[id number] PRN PRN Reason: SALINE FLUSH Fentanyl () 100 mls @ 5 mls/hr IV .Q20H [facility] Last Admin: 09/24/18 21:12 Dose: 5 mls/hr Enteral Nutritional Formula (Nepro Carb Steady) 1,000 mls @ 50 mls/hr GT .Q20H [facility] Last Admin: 09/25/18 18:10 Dose: Not Given Dextrose (Dextrose 10%-Water) 250 mls @ 50 mls/hr IV .Q5H [facility] Last Admin: 09/26/18 06:16 Dose: Not Given Insulin Human Lispro (Humalog Kwikpen (Bkc)) 0 unit SQ Q6 [facility]; Protocol Last Admin: 09/26/18 06:12 Dose: Not Given Magnesium Hydroxide (Milk Of Magnesia) 30 ml GT DAILY PRN PRN PRN Reason: Constipation Metoprolol Tartrate (Lopressor (Beta Cirilo)) 25 mg GT BID [facility] Last Admin: 09/25/18 21:12 Dose: 25 mg Mirtazapine (Remeron) 7.5 mg GT QHS [facility] Last Admin: 09/25/18 21:13 Dose: 7.5 mg Multivit/Ca Carb/B Cmplx/FA/Prenat (Nephrocaps, Renaphro) 1 capsule GT DAILY@0800 [facility] Last Admin: 09/25/18 09:32 Dose: 1 capsule Polyethylene Glycol (Miralax) 17 gm PO DAILY [facility] Last Admin: 09/25/18 07:00 Dose: 17 gm Senna/Docusate Sodium (Senokot-S, Dalila-Colace) 2 tablet PO BID [facility] Last Admin: 09/25/18 21:12 Dose: 2 tablet Sevelamer Carbonate (Renvela) 1,600 mg PO TIDCM [facility] Last Admin: 09/25/18 18:19 Dose: 1,600 mg Sodium Chloride () 5 - 15 ml IV UD PRN PRN Reason: SALINE FLUSH Medical Necessity - Tobacco Use Smoking Status: Unknown if ever smoked Assessment/Plan All Active Problems (Last Reviewed 08/14/18 @ 10:39 by Cesar Sheth MD) Extremity edema (Acute) Encephalopathy acute (Acute) Patient is a 48-year-old with history of 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 Patient had apparently missed dialysis. Patient was found to be uremic on admission in addition she was noted to have acute hypoxic And hypoxic respiratory failure resulting in patient being intubated and admitted to the intensive care unit 1. Acute metabolic encephalopathy multifactorial including uremia from his dialysis hypoglycemia as well as apnea and hypoxia 2. Acute hypercapnic and hypoxic respiratory failure as a result of fluid overload patient was intubated admitted to the intensive care unit with consultation placed to pulmonary/intensive care vent management deferred 3. Hyperkalemia in the context of ESRD being treated with dialysis 4. Type 1 diabetes with complication including hypoglycemia patient was managed with D10 5. SLE with complications including lupus nephritis patient is on prednisone, hydroxychloroquine and cevimeline 6. Sjogren's syndrome 7. End-stage renal disease currently on hemodialysis 8. Dyslipidemia-patient is on statin therapy, continued at home dose 9. Hypertension: BP stable, continue with home meds 10. Anemia secondary to anemia of chronic disease as well as chronic kidney disease H&H stable monitoring plan is to transfuse if patient becomes sym ptomatic or hemoglobin falls below 7 11. DVT prophylaxis: Subcu heparin. Active Medications Artificial Tears (Tears Naturale, Artificial Tears) 1 drop OPHTHALMIC QHS [facility] Last Admin: 09/25/18 21:14 Dose: 1 drop Artificial Tears (Tears Naturale, Artificial Tears) 0 drop OPHTHALMIC Q2H PRN PRN Reason: DRY EYES Atorvastatin Calcium (Lipitor) 20 mg GT QHS [facility] Last Admin: 09/25/18 21:12 Dose: 20 mg Chlorhexidine Gluconate () 15 ml PO BID [facility] Last Admin: 09/25/18 21:13 Dose: 15 ml Chlorhexidine Gluconate () 1 each TOPICAL DAILY [facility] Last Admin: 09/26/18 06:18 Dose: 1 each Cholestyramine Resin (Questran 4gm Packet) 4 gm GT BID [facility] Last Admin: 09/25/18 21:10 Dose: 4 gm Dextrose (D50w Syringe) 0 gm IV X1 PRN; Protocol PRN Reason: Hypoglycemia Last Admin: 09/25/18 00:07 Dose: 25 gm Duloxetine HCl (Cymbalta) 120 mg PO DAILY [facility] Last Admin: 09/25/18 09:27 Dose: 120 mg Ergocalciferol (Vitamin D) 50,000 unit PO QMONTH [facility] Famotidine (Pepcid) 10 mg GT DAILY [facility] Last Admin: 09/25/18 09:27 Dose: 10 mg Fluticasone Propionate (Flonase Nasal [place]) 1 spray NASAL BID [facility] Last Admin: 09/25/18 21:13 Dose: Not Given Glucagon () 1 mg IM .X1 PRN PRN Reason: Hypoglycemia Heparin Sodium (Porcine) (Heparin Na) 5,000 unit SC Q8 [facility] Last Admin: 09/26/18 06:17 Dose: 5,000 unit Hydralazine HCl (Apresoline Iv) 10 mg IV Q4H PRN PRN PRN Reason: BLOOD PRESSURE ELEVATION Hydroxychloroquine Sulfate (Plaquenil) 200 mg GT BIDCM [facility] Last Admin: 09/25/18 18:09 Dose: 200 mg Propofol (Diprivan) 1,000 mg in 100 mls @ 2.279 mls/hr CONT INF .Q12H [facility] Last Admin: 09/26/18 06:12 Dose: Not Given Sodium Chloride () 250 mls @ 15 mls/hr IV .[id number] PRN PRN Reason: SALINE FLUSH Fentanyl () 100 mls @ 5 mls/hr IV .Q20H [facility] Last Admin: 09/24/18 21:12 Dose: 5 mls/hr Enteral Nutritional Formula (Nepro Carb Steady) 1,000 mls @ 50 mls/hr GT .Q20H [facility] Last Admin: 09/25/18 18:10 Dose: Not Given Dextrose (Dextrose 10%-Water) 250 mls @ 50 mls/hr IV .Q5H [facility] Last Admin: 09/26/18 06:16 Dose: Not Given Insulin Human Lispro (Humalog Kwikpen (Bkc)) 0 unit SQ Q6 [facility]; Protocol Last Admin: 09/26/18 06:12 Dose: Not Given Magnesium Hydroxide (Milk Of Magnesia) 30 ml GT DAILY PRN PRN PRN Reason: Constipation Metoprolol Tartrate (Lopressor (Beta Cirilo)) 25 mg GT BID [facility] Last Admin: 09/25/18 21:12 Dose: 25 mg Mirtazapine (Remeron) 7.5 mg GT QHS [facility] Last Admin: 09/25/18 21:13 Dose: 7.5 mg Multivit/Ca Carb/B Cmplx/FA/Prenat (Nephrocaps, Renaphro) 1 capsule GT DAILY@0800 [facility] Last Admin: 09/25/18 09:32 Dose: 1 capsule Polyethylene Glycol (Miralax) 17 gm PO DAILY [facility] Last Admin: 09/25/18 07:00 Dose: 17 gm Senna/Docusate Sodium (Senokot-S, Dalila-Colace) 2 tablet PO BID [facility] Last Admin: 09/25/18 21:12 Dose: 2 tablet Sevelamer Carbonate (Renvela) 1,600 mg PO TIDCM [facility] Last Admin: 09/25/18 18:19 Dose: 1,600 mg Sodium Chloride () 5 - 15 ml IV UD PRN PRN Reason: SALINE FLUSH Clinical Impression(s) from Imaging Studies Chest X-Ray 09/24/18 10:21 IMPRESSION: Prominent appearance of the right paramediastinal soft tissues although this may represent vascular ectasia lymphadenopathy thyroid enlargement could have this appearance and should be excluded. Recommend consideration for follow up CT scan of the chest to clarify. Mild cardiomegaly. Electronically Signed: Carolina Becker MD at 10:56 EST Tel , Service support , Brain CT 09/24/18 10:22 IMPRESSION: Normal unenhanced CT scan of the brain. Electronically Signed: Carolina Becker MD at 10:54 EST Tel , Service support , Chest X-Ray 09/24/18 14:51 IMPRESSION: Tubes are in adequate position. Cardiomegaly. No evidence for acute cardiopulmonary pathology. Electronically Signed: Kwabena Bueno MD at 20:53 EST , Service support , Code Visit Inpatient E&M: [id number] [facility] Hosp L3
--- NOTE | 2018-09-26 09:04 | PCM.PN.REN ---
Subjective: seen on dialysis, responsive on vent, attempting 1-1.5L fluid removal. Potassium elevated at 6.0 this am. - Physical Exam General: Alert, - - on vent Oral: Moist Mucosa Lungs: Clear to auscultation, - - on vent Cardiovascular: Regular rate Abdomen: Bowel Sounds Present, Soft, Non Tender, Non-Distended Extremities: - - weak thrill and bruit RUE Skin: No rashes Musculoskeletal: No Muscle Wasting Psych/Mental Status: Normal Affect Vital Signs Temp Pulse Resp BP Pulse Ox 98.9 F 86 10 L 130/75 H 100 09/26/18 08:00 09/26/18 08:00 09/26/18 08:00 09/26/18 08:00 09/26/18 08:00 Oxygen Flow Rate (L/min) 3 Oxygen Delivery Method Mechanical Ventilator Weight: 67.8 kg Body Mass Index (BMI) 27.8 Finger Stick Blood Glucose 175 Intake and Output for Last 24 Hours 09/24/18 09/25/18 09/26/18 23:59 23:59 23:59 Intake Total 362 / 362 2562 / 2562 1323 / 1323 Output Total 350 / 350 405 / 405 350 / 350 Balance 2157 / 2157 973 / 973 Laboratory Tests Past 24 Hrs 09/26/18 04:10 Sodium 127 L Potassium 6.0 H* Chloride 89 L Carbon Dioxide 26.0 BUN 52 H Creatinine 8.47 H* Estim Creat Clear Calc 6.26 Est GFR (MDRD) Af Amer 7 L Est GFR (MDRD) Non-Af 5 L BUN/Creatinine Ratio 6.1 L Glucose 109 H Calcium 8.8 Phosphorus 7.2 H Albumin 2.7 L POC Glucose 09/26/18 09/26/18 09/25/18 05:41 00:27 17:56 POC Glucose 105 99 112 H 09/25/18 09/25/18 11:00 10:02 POC Glucose 113 H 123 H Medical Necessity - Tobacco Use Smoking Status: Unknown if ever smoked Assessment/Plan All Active Problems (Last Reviewed 08/14/18 @ 10:39 by Cesar Sheth MD) Extremity edema (Acute) Encephalopathy acute (Acute) 1. ESRD HD MWF. Dialysis today 2. Hyperkalemia correct with dialysis 3. acute metabolic encephalopathy s/p intubation 4. HTN stable 5. DM2 6. SLE
--- NOTE | 2018-09-26 09:40 | CASEMGMT ---
RN CM Assessment Presentation: missed dialysis, presents with electrolyte imbalance and altered mental status. Pt remains on ventilatory, receiving dialysis. PCP: Dr. Bowen Specialists: Nephrology Preferred Pharmacy: [facility] Insurance: [facility] Prescription Benefit: yes LNOK: Brother and sister Living Arrangements: Lives in own home. Has Passport services through [employer]. Nita Goyal is customer care voice consultant. Message left requesting a call back to update what services pt has. Pt has services through [employer] and [facility]. Transportation: rides to dialysis through [facility]. DME/HHC: Call to [facility]. Pt has aide M-F 2 hours per day. Updated that pt is in hospital. DC PLAN: undetermined. PT/OT evaluations ordered to be completed once pt has been extubated. Ramón BORRERO RN AC
--- NOTE | 2018-09-26 11:09 | DIALYSIS ---
Hemodialysis x 3 hours completed. Pt tolerated tx well. Fluid balance -1500ml. Heparin 1000units/ml to close CVC ports to fill volume. Report given to ROSHAN Lopez. Pt stable
[2018-09-26 11:46] LABS: Bedside Glucose 111 mg/dL (70-110)
[2018-09-26] MEDS: Fluticasone 0.05% 1 SPRAY NASAL.SRY NASAL ×2 (12:26→21:23)
[2018-09-26] MEDS: Senna/Docusate Sodium 1 Tablet 2 TABLET PO ×2 (12:26→21:22)
[2018-09-26] MEDS: DULoxetine Hcl 60 MG Capsule 120 MG PO (12:27)
[2018-09-26] MEDS: SEVELAMER CARBONATE 800 MG TABLET 1600 MG PO ×2 (12:27→17:55)
[2018-09-26] MEDS: Polyethylene Glycol 3350 17 GM PACKET PO (12:27)
[2018-09-26] MEDS: Metoprolol Tartrate 25 MG Tablet GT (12:28)
[2018-09-26] MEDS: Famotidine 20 MG Tablet 10 MG GT (12:28)
[2018-09-26] MEDS: Folic Acid/Vitamin B Comp W-C 1 Capsule 1 CAP GT (12:29)
[2018-09-26] MEDS: Hydroxychloroquine 200 MG Tablet GT (14:04)
[2018-09-26 14:47] LABS: Bedside Glucose 228 mg/dL (70-110)
[2018-09-26 16:40] LABS: Bedside Glucose 120 mg/dL (70-110)
[2018-09-26] MEDS: Atorvastatin Calcium 20 MG Tablet PO (21:22)
[2018-09-26] MEDS: Metoprolol Tartrate 25 MG Tablet PO (21:22)
[2018-09-26] MEDS: Mirtazapine 15 MG Tablet 7.5 MG PO (21:23)
[2018-09-26 22:01] LABS: Bedside Glucose 112 mg/dL (70-110)
[2018-09-27] VITALS (27 sets, daily range): BP systolic 140–182; BP diastolic 65–100; PULSE 86–99; RESP 11–19; TEMP 36.8–37.3; O2SAT 99–100
[2018-09-27] MEDS: Dextrose 10%-Water 250 ML 50 ML IV ×5 (00:20→21:44)
[2018-09-27] MEDS: Heparin Injection (Vial) 5,000 UNIT/ML VIAL 5000 UNIT SC ×3 (04:38→21:45)
[2018-09-27] MEDS: CHLORHEXIDINE GLUC 2% CLOTH 1 EACH TOWELETTE TOPICAL (04:38)
[2018-09-27 04:48] LABS: Hematocrit 36.1 % (37-47); Hemoglobin 11.2 g/dl (12.0-15.0); Mean Corpuscular Hgb 31.5 pg (27.0-32.0); Mean Corpuscular Volume 101.7 fL (81-99); Mean Platelet Vol. 10.1 fl (6.2-12.0); Platelet Count 108 K/mm3 (150-450); RBC Distribution Width CV 16.3 % (11.6-14.6); RBC Distribution Width SD 60.3 fl (35.1-43.9); Red Blood Count 3.55 M/mm3 (4.2-5.4); White Blood Count 9.2 K/mm3 (4.4-11.0)
[2018-09-27 04:49] LABS: Scan Indicated on CBC? Y/N NO
[2018-09-27 05:12] LABS: Anion Gap 14 (5-15); BUN 33 mg/dL (7-18); BUN/Creat Ratio 5.2 RATIO (10-20); Calcium,Total 8.5 mg/dL (8.5-10.1); Chloride 92 mmol/L (98-107); Creatinine, Serum 6.32 mg/dL (0.55-1.02); EST Glomerular Filtration Rate 8 mL/min (>60); Est Glom Filt Rate - Afr Amer 9 mL/min (>60); Estimated Creatinine Clearance 8.39 ml/min; Glucose 149 mg/dL (74-106); Magnesium 2.6 mg/dL (1.6-2.6); Potassium 4.3 mmol/L (3.5-5.1); Sodium Level 127 mmol/L (136-145)
[2018-09-27] MEDS: hydrALAZINE 20 MG/ML Vial 10 MG IV ×3 (05:16→22:15)
[2018-09-27] MEDS: 0.9% NaCl Peripheral Flush Adult/Peds IV ×3 (05:17→22:15)
[2018-09-27 06:31] LABS: Bedside Glucose 83 mg/dL (70-110)
--- NOTE | 2018-09-27 06:48 | PCM.PN.INT ---
Subjective: The patient was seen and examined at the bedside this morning. Events from the last 24 hours have been reviewed. The patient is currently afebrile, hemodynamically stable and maintaining appropriate oxygen saturations on room air. The patient tolerated hemodialysis yesterday with 1.5 L of fluid removal. Following this, she was able to be successfully liberated from mechanical ventilation. She has done well from a respiratory perspective following extubation. Blood sugars reportedly remain on the low side despite the patient being on a D10 W infusion. Objective: The patient's most recent lab work, culture data and imaging studies have all been personally reviewed. General: Alert, Cooperative, No apparent distress HEENT: Atraumatic, Normocephalic, - - Scleral hyperemia Oral: No Gingival or Mucosal Lesions/ Ulcerations Neck: Supple, No Nodes, Trachea Midline Lungs: No rhonchi, No wheeze, No rales, Diminished Cardiovascular: Regular rate, Normal S1, Normal S2, No murmurs Abdomen: Bowel Sounds Present, Soft, Non Tender Extremities: No clubbing, No cyanosis, No edema Skin: No breakdown Musculoskeletal: No Tenderness to Palpation of Joints or Extremities Lymphatic: No Cervical, Supraclavicular, or Inguinal Adenopathy Neurological: Neuro grossly intact Psych/Mental Status: Flat Affect Vital Signs Temp Pulse Resp BP Pulse Ox 36.8 C 91 17 152/75 H 100 09/27/18 04:00 09/27/18 06:00 09/27/18 06:00 09/27/18 06:00 09/27/18 06:00 Oxygen Flow Rate (L/min) 2 Oxygen Delivery Method Room Air Weight: 147 lb 11.355 oz Body Mass Index (BMI) 27.8 Finger Stick Blood Glucose 175 Intake and Output for Last 24 Hours 09/25/18 09/26/18 09/27/18 23:59 23:59 23:59 Intake Total 2562 / 2562 2664 / 2664 497 / 497 Output Total 405 / 405 2625 / 2625 315 / 315 Balance 2157 / 2157 39 / 39 182 / 182 Labs (Last 48 Hours) 09/25/18 09/25/18 09/25/18 05:30 10:02 11:00 WBC RBC Hgb Hct MCV MCH MCHC RDW RDW Differential Plt Count MPV Sodium 136 Potassium 5.4 H Chloride 95 L Carbon Dioxide 29.0 Anion Gap BUN 41 H Creatinine 7.12 H Estim Creat Clear Calc 7.45 Est GFR (MDRD) Af Amer 8 L Est GFR (MDRD) Non-Af 7 L BUN/Creatinine Ratio 5.8 L Glucose 96 Calcium 9.1 Phosphorus 6.5 H Magnesium Albumin 3.2 POC Glucose 123 H 113 H 09/25/18 09/26/18 09/26/18 17:56 00:27 04:10 WBC RBC Hgb Hct MCV MCH MCHC RDW RDW Differential Plt Count MPV Sodium 127 L Potassium 6.0 H* Chloride 89 L Carbon Dioxide 26.0 Anion Gap BUN 52 H Creatinine 8.47 H* Estim Creat Clear Calc 6.26 Est GFR (MDRD) Af Amer 7 L Est GFR (MDRD) Non-Af 5 L BUN/Creatinine Ratio 6.1 L Glucose 109 H Calcium 8.8 Phosphorus 7.2 H Magnesium Albumin 2.7 L POC Glucose 112 H 99 09/26/18 09/26/18 09/26/18 05:41 11:39 14:43 WBC RBC Hgb Hct MCV MCH MCHC RDW RDW Differential Plt Count MPV Sodium Potassium Chloride Carbon Dioxide Anion Gap BUN Creatinine Estim Creat Clear Calc Est GFR (MDRD) Af Amer Est GFR (MDRD) Non-Af BUN/Creatinine Ratio Glucose Calcium Phosphorus Magnesium Albumin POC Glucose 105 111 H 228 H 09/26/18 09/26/18 09/27/18 16:34 21:17 04:40 WBC 9.2 RBC 3.55 L Hgb 11.2 L Hct 36.1 L MCV 101.7 H MCH 31.5 MCHC 31.0 L RDW 16.3 H RDW Differential 60.3 H Plt Count 108 L MPV 10.1 Sodium Potassium Chloride Carbon Dioxide Anion Gap BUN Creatinine Estim Creat Clear Calc Est GFR (MDRD) Af Amer Est GFR (MDRD) Non-Af BUN/Creatinine Ratio Glucose Calcium Phosphorus Magnesium Albumin POC Glucose 120 H 112 H 09/27/18 09/27/18 04:40 06:26 WBC RBC Hgb Hct MCV MCH MCHC RDW RDW Differential Plt Count MPV Sodium 127 L Potassium 4.3 Chloride 92 L Carbon Dioxide 21.0 Anion Gap 14 BUN 33 H Creatinine 6.32 H Estim Creat Clear Calc 8.39 Est GFR (MDRD) Af Amer 9 L Est GFR (MDRD) Non-Af 8 L BUN/Creatinine Ratio 5.2 L Glucose 149 H Calcium 8.5 Phosphorus Magnesium 2.6 Albumin POC Glucose 83 Clinical Impression(s) from Imaging Studies Chest X-Ray 09/24/18 10:21 IMPRESSION: Prominent appearance of the right paramediastinal soft tissues although this may represent vascular ectasia lymphadenopathy thyroid enlargement could have this appearance and should be excluded. Recommend consideration for follow up CT scan of the chest to clarify. Mild cardiomegaly. Electronically Signed: Carolina Becker MD at 10:56 EST Tel , Service support , Brain CT 09/24/18 10:22 IMPRESSION: Normal unenhanced CT scan of the brain. Electronically Signed: Carolina Becker MD at 10:54 EST Tel , Service support , Chest X-Ray 09/24/18 14:51 IMPRESSION: Tubes are in adequate position. Cardiomegaly. No evidence for acute cardiopulmonary pathology. Electronically Signed: Kwabena Bueno MD at 20:53 EST , Service support , Medical Necessity - Tobacco Use Smoking Status: Unknown if ever smoked Assessment/Plan All Active Problems (Last Reviewed 08/14/18 @ 10:39 by Cesar Sheth MD) Hyperkalemia (Acute) Extremity edema (Acute) Encephalopathy acute (Acute) RECOMMENDATIONS: 1. Continue dextrose infusion in support of the patient's blood sugars until stabilized. 2. Encourage incentive spirometer use and mobilize patient as tolerated. 3. Restart home blood pressure medications 4. Continue hemodialysis per nephrology recommendations. IMPRESSIONS: 1. Acute respiratory failure secondary to metabolic encephalopathy in the setting of uremia and hypoglycemia The patient was intubated in the setting of metabolic encephalopathy. The patient's encephalopathic state resolved with invasive mechanical ventilation and subsequent hemodialysis. She was able to be successfully extubated on September 26. She has done well from a respiratory perspective following extubation. Continue to encourage incentive spirometer use and mobilize patient as tolerated. 2. Persistent hypoglycemia/diabetes mellitus type 2 Potentially secondary to excessive insulin intake. We will continue current supportive measures with dextrose infusion pending stabilization of blood glucose levels. 3. End-stage renal disease with history of medical noncompliance Continue hemodialysis per nephrology recommendations. 4. History of noncompliance/lupus/Sjogren's syndrome/chronic immunosuppression/secondary pulmonary hypertension Complicates care, management, recovery and prognosis. Resume home medications as indicated. Physical therapy to work with patient. This note was generated with [employer] dictation software. It may contain incorrect words, spelling, and punctuation that were not noted in checking the note before signing. DISPOSITION: The patient is medically stable for transfer out of the intensive care unit. Given the patient's lack of ongoing ICU/pulmonary needs, will sign off. Please call with any additional questions. Code Visit Inpatient E&M: 33296 [facility] Hosp L3
--- NOTE | 2018-09-27 07:17 | PCM.PN.HOSP ---
Patient Problems: Active and Suspected Problems (Last Reviewed 08/14/18 @ 10:39 by Cesar Sheth MD) Hyperkalemia (Acute) Subjective: Patient successfully weaned off the vent on 09/27/2018 patient had dialysis the day prior. Patient remains hypoglycemic despite being off her long-acting insulin. Objective: GENERAL: Not in acute distress HEENT: Atraumatic; EYES; conjunctiva edema NECK; supple, normal thyroid, RESPIRATORY: Diminished to auscultation bilaterally, CARDIOVASCULAR: Regular S1 S2, no audible murmurs GI: soft, non-tender, normoactive bowel sounds, : No Renal angle tenderness; EXTREMITIES: No edema, no clubbing, no cyanosis. MUSCULOSKELETAL: No Joint Tenderness; no muscle waisting NEURO: No lateralizing signs SKIN: No Rash PSYCH; flat affect Vitals/I&O's: Vital Signs Temp Pulse Resp BP Pulse Ox 98.3 F 91 17 152/75 H 100 09/27/18 04:00 09/27/18 06:00 09/27/18 06:00 09/27/18 06:00 09/27/18 06:00 Oxygen Flow Rate (L/min) 2 Oxygen Delivery Method Room Air Weight: 67 kg Body Mass Index (BMI) 27.8 Finger Stick Blood Glucose 175 Intake and Output for Last 24 Hours 09/25/18 09/26/18 09/27/18 23:59 23:59 23:59 Intake Total 2562 / 2562 2664 / 2664 497 / 497 Output Total 405 / 405 2625 / 2625 315 / 315 Balance 2157 / 2157 39 / 39 182 / 182 Laboratory Results 09/26/18 11:39: POC Glucose 111 H 09/26/18 14:43: POC Glucose 228 H 09/26/18 16:34: POC Glucose 120 H 09/26/18 21:17: POC Glucose 112 H 09/27/18 04:40: WBC 9.2, RBC 3.55 L, Hgb 11.2 L, Hct 36.1 L, MCV 101.7 H, MCH 31.5, MCHC 31.0 L, RDW 16.3 H, RDW Differential 60.3 H, Plt Count 108 L, MPV 10.1 09/27/18 04:40: Sodium 127 L, Potassium 4.3, Chloride 92 L, Carbon Dioxide 21.0, Anion Gap 14, BUN 33 H, Creatinine 6.32 H, Estim Creat Clear Calc 8.39, Est GFR (MDRD) Af Amer 9 L, Est GFR (MDRD) Non-Af 8 L, BUN/Creatinine Ratio 5.2 L, Glucose 149 H, Calcium 8.5, Magnesium 2.6 09/27/18 06:26: POC Glucose 83 Current Medications Artificial Tears (Tears Naturale, Artificial Tears) 1 drop OPHTHALMIC QHS [facility] Last Admin: 09/26/18 21:23 Dose: 1 drop Artificial Tears (Tears Naturale, Artificial Tears) 0 drop OPHTHALMIC Q2H PRN PRN Reason: DRY EYES Atorvastatin Calcium (Lipitor) 20 mg PO QHS [facility] Last Admin: 09/26/18 21:22 Dose: 20 mg Chlorhexidine Gluconate () 1 each TOPICAL DAILY [facility] Last Admin: 09/27/18 04:38 Dose: 1 each Dextrose (D50w Syringe) 0 gm IV X1 PRN; Protocol PRN Reason: Hypoglycemia Last Admin: 09/25/18 00:07 Dose: 25 gm Duloxetine HCl (Cymbalta) 120 mg PO DAILY [facility] Last Admin: 09/26/18 12:27 Dose: 120 mg Ergocalciferol (Vitamin D) 50,000 unit PO QMONTH [facility] Famotidine (Pepcid) 10 mg PO DAILY [facility] Fluticasone Propionate (Flonase Nasal [place]) 1 spray NASAL BID [facility] Last Admin: 09/26/18 21:23 Dose: 1 spray Glucagon () 1 mg IM .X1 PRN PRN Reason: Hypoglycemia Heparin Sodium (Porcine) (Heparin Na) 5,000 unit SC Q8 [facility] Last Admin: 09/27/18 04:38 Dose: 5,000 unit Hydralazine HCl (Apresoline Iv) 10 mg IV Q4H PRN PRN PRN Reason: BLOOD PRESSURE ELEVATION Last Admin: 09/27/18 05:16 Dose: 10 mg Hydroxychloroquine Sulfate (Plaquenil) 200 mg PO BIDCM [facility] Last Admin: 09/26/18 17:14 Dose: Not Given Sodium Chloride () 250 mls @ 15 mls/hr IV .[id number] PRN PRN Reason: SALINE FLUSH Dextrose (Dextrose 10%-Water) 250 mls @ 50 mls/hr IV .Q5H [facility] Last Admin: 09/27/18 04:37 Dose: 50 mls/hr Insulin Human Lispro (Humalog Kwikpen (Bkc)) 0 unit SQ ACHS [facility]; Protocol Last Admin: 09/26/18 21:21 Dose: Not Given Magnesium Hydroxide (Milk Of Magnesia) 30 ml PO DAILY PRN PRN PRN Reason: Constipation Metoprolol Tartrate (Lopressor (Beta Cirilo)) 25 mg PO BID [facility] Last Admin: 09/26/18 21:22 Dose: 25 mg Mirtazapine (Remeron) 7.5 mg PO QHS [facility] Last Admin: 09/26/18 21:23 Dose: 7.5 mg Multivit/Ca Carb/B Cmplx/FA/Prenat (Nephrocaps, Renaphro) 1 capsule PO DAILY@0800 [facility] Polyethylene Glycol (Miralax) 17 gm PO DAILY [facility] Last Admin: 09/26/18 12:27 Dose: 17 gm Senna/Docusate Sodium (Senokot-S, Dalila-Colace) 2 tablet PO BID [facility] Last Admin: 09/26/18 21:22 Dose: 2 tablet Sevelamer Carbonate (Renvela) 1,600 mg PO TIDCM [facility] Last Admin: 09/26/18 17:55 Dose: 1,600 mg Sodium Chloride () 5 - 15 ml IV UD PRN PRN Reason: SALINE FLUSH Last Admin: 09/27/18 05:17 Dose: 10 ml Medical Necessity - Tobacco Use Smoking Status: Unknown if ever smoked Assessment/Plan All Active Problems (Last Reviewed 08/14/18 @ 10:39 by Cesar Sheth MD) Hyperkalemia (Acute) Extremity edema (Acute) Encephalopathy acute (Acute) Patient is a 48-year-old with history of 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 Patient had apparently missed dialysis. Patient was found to be uremic on admission in addition she was noted to have acute hypoxic And hypoxic respiratory failure resulting in patient being intubated and admitted to the intensive care unit 1. Acute metabolic encephalopathy multifactorial including uremia from recent dialysis, hypoglycemia as well as hypoxia and hypercapnia 2. Acute hypercapnic and hypoxic respiratory failure as a result of fluid overload patient was intubated admitted to the intensive care unit with consultation placed to pulmonary/intensive care vent management deferred. Patient was weaned off the vent on 09/26/2018. 3. Hyperkalemia in the context of ESRD being treated with dialysis 4. Type 1 diabetes with complication including hypoglycemia patient was managed with D10 patient still remains hypoglycemic 5. SLE with complications including lupus nephritis patient is on prednisone, hydroxychloroquine and cevimeline 6. Sjogren's syndrome 7. End-stage renal disease currently on hemodialysis 8. Dyslipidemia-patient is on statin therapy, continued at home dose 9. Hypertension: BP stable, continue with home meds 10. Anemia secondary to anemia of chronic disease as well as chronic kidney disease H&H stable monitoring plan is to transfuse if patient becomes symptomatic or hemoglobin falls below 7 11. DVT prophylaxis: Subcu heparin. Code Visit Inpatient E&M: 82648 Subs Hosp L3
[2018-09-27 08:09] LABS: HEPATITIS B SURFACE AG Negative (Negative)
[2018-09-27] MEDS: Hydroxychloroquine 200 MG Tablet PO ×2 (08:23→17:03)
[2018-09-27] MEDS: SEVELAMER CARBONATE 800 MG TABLET 1600 MG PO ×3 (08:23→17:02)
[2018-09-27] MEDS: Folic Acid/Vitamin B Comp W-C 1 Capsule 1 CAP PO (08:23)
[2018-09-27 08:31] LABS: Bedside Glucose 105 mg/dL (70-110)
[2018-09-27] MEDS: Famotidine 20 MG Tablet 10 MG PO (11:29)
[2018-09-27] MEDS: Fluticasone 0.05% 1 SPRAY NASAL.SRY NASAL ×2 (11:30→21:55)
[2018-09-27] MEDS: DULoxetine Hcl 60 MG Capsule 120 MG PO (11:30)
[2018-09-27] MEDS: Metoprolol Tartrate 25 MG Tablet PO ×2 (11:31→22:08)
[2018-09-27 11:36] LABS: Bedside Glucose 113 mg/dL (70-110)
--- NOTE | 2018-09-27 12:40 | CASEMGMT ---
ROSHAN ALCARAZ Note: Call received from [facility] . Notified ROSHAN ALCARAZ that [facility] can do skilled RN, PT/OT on dc if pt requires as well as resuming her aide services. ROSHAN ALCARAZ let [facility] know we are continuing to follow PT/OT notes on pt's activity. Update faxed to . Ramón BORRERO RN ACM
--- NOTE | 2018-09-27 14:43 | CASEMGMT ---
RN LISSA Note: intro role of CM to patient in room. Pt is sitting in chair, able to participate in discussion. Discussed PT/OT notes with pt. Pt states she has been to [facility] in past, but would like to go home. she is aware she is weak and could benefit from further skilled therapy. Also discussed having fdc/pt/ot through [place] at home if pt returns home. DION Allan updated that pt may need SNF on dc and pt preference is [facility] Ramón GALEANON RN ACM
[2018-09-27 16:40] LABS: Bedside Glucose 108 mg/dL (70-110)
[2018-09-27] MEDS: Atorvastatin Calcium 20 MG Tablet PO (21:46)
[2018-09-27] MEDS: Mirtazapine 15 MG Tablet 7.5 MG PO (21:46)
[2018-09-27 21:56] LABS: Bedside Glucose 101 mg/dL (70-110)
[2018-09-27] MEDS: Ondansetron 4 MG/2 ML Vial IV (22:16)
[2018-09-28] VITALS (11 sets, daily range): BP systolic 122–149; BP diastolic 66–91; PULSE 82–101; RESP 16–18; TEMP 36.5–37; O2SAT 100
[2018-09-28] MEDS: Dextrose 10%-Water 250 ML 50 ML IV ×5 (02:06→23:36)
--- NOTE | 2018-09-28 02:08 | NURSING ---
pt asked for her glucose to be checked. result 87. juice given
[2018-09-28 02:15] LABS: Bedside Glucose 87 mg/dL (70-110)
[2018-09-28 04:20] LABS: Bedside Glucose 93 mg/dL (70-110)
--- NOTE | 2018-09-28 04:21 | NURSING ---
pt asked for her sugar to be checked result 93
[2018-09-28 06:06] LABS: Hematocrit 34.7 % (37-47); Hemoglobin 11.1 g/dl (12.0-15.0); Mean Corpuscular Volume 96.9 fL (81-99); Mean Platelet Vol. 10.4 fl (6.2-12.0); Platelet Count 197 K/mm3 (150-450); RBC Distribution Width SD 56.4 fl (35.1-43.9); Red Blood Count 3.58 M/mm3 (4.2-5.4); White Blood Count 9.3 K/mm3 (4.4-11.0)
[2018-09-28 06:18] LABS: Scan Indicated on CBC? Y/N NO
[2018-09-28] MEDS: Heparin Injection (Vial) 5,000 UNIT/ML VIAL 5000 UNIT SC ×3 (06:28→21:48)
[2018-09-28 06:37] LABS: Anion Gap 13 (5-15); BUN 54 mg/dL (7-18); BUN/Creat Ratio 6.7 RATIO (10-20); Calcium,Total 8.6 mg/dL (8.5-10.1); Chloride 92 mmol/L (98-107); Creatinine, Serum 8.06 mg/dL (0.55-1.02); EST Glomerular Filtration Rate 6 mL/min (>60); Est Glom Filt Rate - Afr Amer 7 mL/min (>60); Estimated Creatinine Clearance 6.58 ml/min; Glucose 88 mg/dL (74-106); Potassium 4.8 mmol/L (3.5-5.1); Sodium Level 127 mmol/L (136-145)
[2018-09-28 06:41] LABS: Bedside Glucose 88 mg/dL (70-110)
--- NOTE | 2018-09-28 07:21 | PCM.PN.HOSP ---
Subjective: Patient seen improving clinically. She however remains hyperglycemic despite being on D10. Ordered for C-peptide as well as pro-insulin levels. Scheduled to undergo dialysis today Objective: GENERAL: Not in acute distress HEENT: Atraumatic; EYES; conjunctiva edema NECK; supple, normal thyroid, RESPIRATORY: Diminished to auscultation bilaterally, CARDIOVASCULAR: Regular S1 S2, no audible murmurs GI: soft, non-tender, normoactive bowel sounds, : No Renal angle tenderness; EXTREMITIES: No edema, no clubbing, no cyanosis. MUSCULOSKELETAL: No Joint Tenderness; no muscle waisting NEURO: No lateralizing signs SKIN: No Rash PSYCH; flat affect Vitals/I&O's: Vital Signs Temp Pulse Resp BP Pulse Ox 98.6 F 93 16 122/68 H 100 09/28/18 02:02 09/28/18 04:02 09/28/18 02:02 09/28/18 02:02 09/28/18 02:02 Oxygen Flow Rate (L/min) 2 Oxygen Delivery Method Room Air Weight: 69.4 kg Body Mass Index (BMI) 27.8 Finger Stick Blood Glucose 175 Intake and Output for Last 24 Hours 09/26/18 09/27/18 09/28/18 23:59 23:59 23:59 Intake Total 2664 / 2664 1247 / 1247 541 / 541 Output Total 2625 / 2625 990 / 990 Balance 39 / 39 257 / 257 541 / 541 Laboratory Results 09/25/18 05:30: Hep Bs Antigen Negative 09/27/18 08:18: POC Glucose 105 09/27/18 11:27: POC Glucose 113 H 09/27/18 16:35: POC Glucose 108 09/27/18 21:43: POC Glucose 101 09/28/18 02:08: POC Glucose 87 09/28/18 04:12: POC Glucose 93 09/28/18 05:45: WBC 9.3, RBC 3.58 L, Hgb 11.1 L, Hct 34.7 L, MCV 96.9, MCH 31.0, MCHC 32.0, RDW 16.0 H, RDW Differential 56.4 H, Plt Count 197, MPV 10.4 09/28/18 05:45: Sodium 127 L, Potassium 4.8, Chloride 92 L, Carbon Dioxide 22.0, Anion Gap 13, BUN 54 H, Creatinine 8.06 H*, Estim Creat Clear Calc 6.58, Est GFR (MDRD) Af Amer 7 L, Est GFR (MDRD) Non-Af 6 L, BUN/Creatinine Ratio 6.7 L, Glucose 88, Calcium 8.6 09/28/18 06:26: POC Glucose 88 Current Medications Artificial Tears (Tears Naturale, Artificial Tears) 1 drop OPHTHALMIC QHS [facility] Last Admin: 09/27/18 21:57 Dose: 1 drop Artificial Tears (Tears Naturale, Artificial Tears) 0 drop OPHTHALMIC Q2H PRN PRN Reason: DRY EYES Last Admin: 09/27/18 13:34 Dose: 2 drop Atorvastatin Calcium (Lipitor) 20 mg PO QHS [facility] Last Admin: 09/27/18 21:46 Dose: 20 mg Chlorhexidine Gluconate () 1 each TOPICAL DAILY [facility] Last Admin: 09/27/18 04:38 Dose: 1 each Dextrose (D50w Syringe) 0 gm IV X1 PRN; Protocol PRN Reason: Hypoglycemia Last Admin: 09/25/18 00:07 Dose: 25 gm Duloxetine HCl (Cymbalta) 120 mg PO DAILY [facility] Last Admin: 09/27/18 11:30 Dose: 120 mg Ergocalciferol (Vitamin D) 50,000 unit PO QMONTH [facility] Famotidine (Pepcid) 10 mg PO DAILY [facility] Last Admin: 09/27/18 11:29 Dose: 10 mg Fluticasone Propionate (Flonase Nasal [place]) 1 spray NASAL BID [facility] Last Admin: 09/27/18 21:55 Dose: 1 spray Glucagon () 1 mg IM .X1 PRN PRN Reason: Hypoglycemia Heparin Sodium (Porcine) (Heparin Na) 5,000 unit SC Q8 [facility] Last Admin: 09/28/18 06:28 Dose: 5,000 unit Hydralazine HCl (Apresoline Iv) 10 mg IV Q4H PRN PRN PRN Reason: BLOOD PRESSURE ELEVATION Last Admin: 09/27/18 22:15 Dose: 10 mg Hydroxychloroquine Sulfate (Plaquenil) 200 mg PO BIDCM [facility] Last Admin: 09/27/18 17:03 Dose: 200 mg Sodium Chloride () 250 mls @ 15 mls/hr IV .[id number] PRN PRN Reason: SALINE FLUSH Dextrose (Dextrose 10%-Water) 250 mls @ 50 mls/hr IV .Q5H [facility] Last Admin: 09/28/18 06:29 Dose: 50 mls/hr Insulin Human Lispro (Humalog Kwikpen (Bkc)) 0 unit SQ ACHS [facility]; Protocol Last Admin: 09/28/18 06:29 Dose: Not Given Magnesium Hydroxide (Milk Of Magnesia) 30 ml PO DAILY PRN PRN PRN Reason: Constipation Metoprolol Tartrate (Lopressor (Beta Cirilo)) 25 mg PO BID [facility] Last Admin: 09/27/18 22:08 Dose: 25 mg Mirtazapine (Remeron) 7.5 mg PO QHS [facility] Last Admin: 09/27/18 21:46 Dose: 7.5 mg Multivit/Ca Carb/B Cmplx/FA/Prenat (Nephrocaps, Renaphro) 1 capsule PO DAILY@0800 [facility] Last Admin: 09/27/18 08:23 Dose: 1 capsule Nutritional Formula (Lactose Free) (Glucerna Shake) 120 ml PO TIDCM [facility] Ondansetron HCl (Zofran) 4 mg IV Q6H PRN PRN PRN Reason: nausea, emesis Last Admin: 09/27/18 22:16 Dose: 4 mg Polyethylene Glycol (Miralax) 17 gm PO DAILY [facility] Last Admin: 09/27/18 11:32 Dose: Not Given Senna/Docusate Sodium (Senokot-S, Dalila-Colace) 2 tablet PO BID [facility] Last Admin: 09/27/18 21:46 Dose: Not Given Sevelamer Carbonate (Renvela) 1,600 mg PO TIDCM [facility] Last Admin: 09/27/18 17:02 Dose: 1,600 mg Sodium Chloride () 5 - 15 ml IV UD PRN PRN Reason: SALINE FLUSH Last Admin: 09/27/18 22:15 Dose: 10 ml Sodium Chloride ([place] Nasal [place]) 2 spray NASAL TID PRN PRN PRN Reason: NASAL DRYNESS Medical Necessity - Tobacco Use Smoking Status: Unknown if ever smoked Assessment/Plan All Active Problems (Last Reviewed 08/14/18 @ 10:39 by Cesar Sheth MD) Hyperkalemia (Acute) Extremity edema (Acute) Encephalopathy acute (Acute) Patient is a 48-year-old with history of 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 Patient had apparently missed dialysis. Patient was found to be uremic on admission in addition she was noted to have acute hypoxic And hypoxic respiratory failure resulting in patient being intubated and admitted to the intensive care unit 1. Acute metabolic encephalopathy multifactorial including uremia from recent dialysis, hypoglycemia as well as hypoxia and hypercapnia. Patient encephalopathy resolved 2. Acute hypercapnic and hypoxic respiratory failure as a result of fluid overload patient was intubated admitted to the intensive care unit with consultation placed to pulmonary/intensive care vent management deferred. Patient was weaned off the vent on 09/26/2018. 3. Hyperkalemia in the context of ESRD being treated with dialysis 4. Type 1 diabetes with complication including hypoglycemia patient was managed with D10 patient still remains hypoglycemic 5. Persistent hypoglycemia ordered C-peptide as well as pro-insulin as part of her evaluation 6. SLE with complications including lupus nephritis patient is on prednisone, hydroxychloroquine and cevimeline 7. End-stage renal disease currently on hemodialysis 8. Dyslipidemia-patient is on statin therapy, continued at home dose 9. Hypertension: BP stable, continue with home meds 10. Anemia secondary to anemia of chronic disease as well as chronic kidney disease H&H stable monitoring plan is to transfuse if patient becomes symptomatic or hemoglobin falls below 7 11. Sjogren's syndrome 12. DVT prophylaxis: Subcu heparin. Code Visit Inpatient E&M: 34786 Subs Hosp L2
[2018-09-28] MEDS: Ondansetron 4 MG/2 ML Vial IV ×3 (08:05→23:36)
[2018-09-28] MEDS: Sodium Chloride 0.65% 1 SPRAY SPRAY.BTL 2 SPRAY NASAL (08:17)
[2018-09-28] MEDS: proMETHazine 25 MG/ML Syringe 12.5 MG IM (10:17)
--- NOTE | 2018-09-28 11:30 | CASEMGMT ---
ROSHAN CM NOTE: To room to talk with pt. Discussed discharge planning. Pt states she still prefers to return home instead of going to a SNF, but may be agreeable to SNF if she is too weak to go home. CM to continue to follow. Rj BORRERO RN CM
--- NOTE | 2018-09-28 12:15 | CASEMGMT ---
SW called pt's caseworker protective services Nita Jacksonmable, message left requesting a return call for any information regarding assist for pt w/transportation, as pt had informed CM she needs to see a doctor in [place] but is not certain how she can get there. HUDSON Rodriguez, WAITER/WAITRESS HEAD
[2018-09-28 12:36] LABS: Bedside Glucose 84 mg/dL (70-110)
[2018-09-28] MEDS: Heparin 10,000 UNITS/10 ML Vial IV (13:37)
--- NOTE | 2018-09-28 13:57 | PCM.PN.REN ---
Subjective: seen on dialysis, remains anxious, nauseated despite zofran and phenergan. - Physical Exam General: Alert, Oriented x3, Cooperative, No apparent distress, - - mildly anxious Lungs: Clear to auscultation Cardiovascular: Regular rate Abdomen: Bowel Sounds Present, Soft, Non Tender, Non-Distended Extremities: No edema Skin: No rashes Psych/Mental Status: Normal Affect, Appropriate, Alert and oriented to time, place, person, mood and affect Vital Signs Temp Pulse Resp BP Pulse Ox 98.3 F 82 18 149/91 H 100 09/28/18 07:54 09/28/18 11:44 09/28/18 07:54 09/28/18 07:54 09/28/18 07:54 Oxygen Flow Rate (L/min) 2 Oxygen Delivery Method Room Air Weight: 69.4 kg Body Mass Index (BMI) 27.8 Finger Stick Blood Glucose 175 Intake and Output for Last 24 Hours 09/26/18 09/27/18 09/28/18 23:59 23:59 23:59 Intake Total 2664 / 2664 1247 / 1247 816 / 816 Output Total 2625 / 2625 990 / 990 Balance 39 / 39 257 / 257 816 / 816 Laboratory Tests Past 24 Hrs 09/28/18 09/28/18 09/28/18 05:45 05:45 10:30 WBC 9.3 RBC 3.58 L Hgb 11.1 L Hct 34.7 L MCV 96.9 MCH 31.0 MCHC 32.0 RDW 16.0 H RDW Differential 56.4 H Plt Count 197 MPV 10.4 Sodium 127 L Potassium 4.8 Chloride 92 L Carbon Dioxide 22.0 Anion Gap 13 BUN 54 H Creatinine 8.06 H* Estim Creat Clear Calc 6.58 Est GFR (MDRD) Af Amer 7 L Est GFR (MDRD) Non-Af 6 L BUN/Creatinine Ratio 6.7 L Glucose 88 C-Peptide Pending Calcium 8.6 Miscellaneous Test 09/28/18 10:30 WBC RBC Hgb Hct MCV MCH MCHC RDW RDW Differential Plt Count MPV Sodium Potassium Chloride Carbon Dioxide Anion Gap BUN Creatinine Estim Creat Clear Calc Est GFR (MDRD) Af Amer Est GFR (MDRD) Non-Af BUN/Creatinine Ratio Glucose C-Peptide Calcium Miscellaneous Test Pending POC Glucose 09/28/18 09/28/18 09/28/18 12:28 06:26 04:12 POC Glucose 84 88 93 09/28/18 09/27/18 09/27/18 02:08 21:43 16:35 POC Glucose 87 101 108 Medical Necessity - Tobacco Use Smoking Status: Unknown if ever smoked Assessment/Plan All Active Problems (Last Reviewed 08/14/18 @ 10:39 by Cesar Sheth MD) Hyperkalemia (Acute) Extremity edema (Acute) Encephalopathy acute (Acute) 1. ESRD HD MWF. Dialysis today, seen on dialysis, tolerated 2L fluid removal 2. Hyperkalemia corrected with dialysis 3. hypoglycemia requiring D10 continuous infusion. Consider evaluation for insulinoma 4. Chronic anxiety disorder 5. hyponatremia likely due to hypotonic soln
--- NOTE | 2018-09-28 14:31 | DIALYSIS ---
Hemodialysis completed, -2200ml, tolerated well. stable t/o. cvc closed with heparin.
[2018-09-28] MEDS: Folic Acid/Vitamin B Comp W-C 1 Capsule 1 CAP PO (14:50)
[2018-09-28] MEDS: Famotidine 20 MG Tablet 10 MG PO (14:50)
[2018-09-28] MEDS: DULoxetine Hcl 60 MG Capsule 120 MG PO (14:50)
[2018-09-28] MEDS: SEVELAMER CARBONATE 800 MG TABLET 1600 MG PO ×2 (14:51→16:55)
[2018-09-28] MEDS: Metoprolol Tartrate 25 MG Tablet PO ×2 (14:51→21:47)
[2018-09-28] MEDS: Fluticasone 0.05% 1 SPRAY NASAL.SRY NASAL ×2 (14:52→21:48)
[2018-09-28 15:46] LABS: Bedside Glucose 171 mg/dL (70-110)
[2018-09-28] MEDS: Hydroxychloroquine 200 MG Tablet PO (16:55)
[2018-09-28] MEDS: Glucerna Shake 120 ML LIQUID PO (16:59)
[2018-09-28] MEDS: Insulin Lispro 100 UNIT/ML INSULN.PEN SQ (17:00)
[2018-09-28 21:25] LABS: Bedside Glucose 112 mg/dL (70-110)
[2018-09-28] MEDS: Mirtazapine 15 MG Tablet 7.5 MG PO (21:47)
[2018-09-28] MEDS: Atorvastatin Calcium 20 MG Tablet PO (21:48)
[2018-09-28 23:21] LABS: Bedside Glucose 101 mg/dL (70-110)
[2018-09-29] VITALS: PULSE 88
[2018-09-29 02:59] VITALS: BP 149/96; PULSE 99; RESP 18; TEMP 37.1; O2SAT 100
[2018-09-29 03:30] LABS: Bedside Glucose 91 mg/dL (70-110)
[2018-09-29 04:00] VITALS: PULSE 91
[2018-09-29] MEDS: Dextrose 10%-Water 250 ML 50 ML IV (04:58)
[2018-09-29 06:07] LABS: Anion Gap 12 (5-15); BUN 32 mg/dL (7-18); BUN/Creat Ratio 5.9 RATIO (10-20); Calcium,Total 8.3 mg/dL (8.5-10.1); Chloride 94 mmol/L (98-107); Creatinine, Serum 5.43 mg/dL (0.55-1.02); EST Glomerular Filtration Rate 9 mL/min (>60); Est Glom Filt Rate - Afr Amer 11 mL/min (>60); Estimated Creatinine Clearance 9.77 ml/min; Glucose 85 mg/dL (74-106); Potassium 3.9 mmol/L (3.5-5.1); Sodium Level 132 mmol/L (136-145)
[2018-09-29] MEDS: Heparin Injection (Vial) 5,000 UNIT/ML VIAL 5000 UNIT SC (06:40)
[2018-09-29 06:50] LABS: Bedside Glucose 93 mg/dL (70-110)
[2018-09-29 07:37] VITALS: PULSE 94
[2018-09-29 08:45] VITALS: BP 146/82; PULSE 93; RESP 18; TEMP 37.2; O2SAT 100
--- NOTE | 2018-09-29 08:50 | PCM.PN.REN ---
Subjective: lost iv access last night, off D10. Sugars stable. - Physical Exam General: Alert, Oriented x3, Cooperative, No apparent distress Neck: Supple Lungs: Clear to auscultation Cardiovascular: Regular rate Abdomen: Bowel Sounds Present, Soft Extremities: No edema Vital Signs Temp Pulse Resp BP Pulse Ox 98.7 F 94 18 149/96 H 100 09/29/18 02:59 09/29/18 07:37 09/29/18 02:59 09/29/18 02:59 09/29/18 02:59 Oxygen Flow Rate (L/min) 2 Oxygen Delivery Method Room Air Weight: 69.1 kg Body Mass Index (BMI) 27.8 Finger Stick Blood Glucose 175 Intake and Output for Last 24 Hours 09/27/18 09/28/18 09/29/18 23:59 23:59 23:59 Intake Total 1247 / 1247 1116 / 1116 1265 / 1265 Output Total 990 / 990 2200 / 2200 Balance 257 / 257 -1084 / -1084 1265 / 1265 Laboratory Tests Past 24 Hrs 09/28/18 09/28/18 09/29/18 10:30 10:30 05:30 Sodium 132 L Potassium 3.9 Chloride 94 L Carbon Dioxide 26.0 Anion Gap 12 BUN 32 H Creatinine 5.43 H Estim Creat Clear Calc 9.77 Est GFR (MDRD) Af Amer 11 L Est GFR (MDRD) Non-Af 9 L BUN/Creatinine Ratio 5.9 L Glucose 85 C-Peptide Pending Calcium 8.3 L Miscellaneous Test Pending POC Glucose 09/29/18 09/29/18 09/28/18 06:37 03:25 21:41 POC Glucose 93 91 101 09/28/18 09/28/18 09/28/18 15:41 12:28 08:09 POC Glucose 171 H 84 112 H Medical Necessity - Tobacco Use Smoking Status: Unknown if ever smoked Assessment/Plan All Active Problems (Last Reviewed 08/14/18 @ 10:39 by Cesar Sheth MD) Hyperkalemia (Acute) Extremity edema (Acute) Encephalopathy acute (Acute) 1. ESRD HD MWF. 2. Hyperkalemia corrected with dialysis 3. hypoglycemia stable off D10 Evaluation for insulinoma pending 4. hyponatremia likely due to hypotonic soln improved
[2018-09-29] MEDS: proMETHazine 25 MG/ML Syringe 12.5 MG IM (08:55)
[2018-09-29] MEDS: Glucerna Shake 120 ML LIQUID PO (08:58)
[2018-09-29 09:00] VITALS: PULSE 93
[2018-09-29] MEDS: DULoxetine Hcl 60 MG Capsule 120 MG PO (09:00)
[2018-09-29] MEDS: Famotidine 20 MG Tablet 10 MG PO (09:00)
[2018-09-29] MEDS: Metoprolol Tartrate 25 MG Tablet PO (09:00)
[2018-09-29] MEDS: Folic Acid/Vitamin B Comp W-C 1 Capsule 1 CAP PO (09:00)
[2018-09-29] MEDS: SEVELAMER CARBONATE 800 MG TABLET 1600 MG PO (09:00)
[2018-09-29] MEDS: Fluticasone 0.05% 1 SPRAY NASAL.SRY NASAL (09:01)
[2018-09-29] MEDS: Hydroxychloroquine 200 MG Tablet PO (09:02)
--- NOTE | 2018-09-29 09:37 | DCINST_ITS ---
You will use the following diet at home:: Regular Discharge Activity: Return to Normal Activity Allergies/Adverse Reactions: Allergies LONG Inhibitors Allergy (Verified 09/24/18 11:36) Angioedema adhesive Allergy (Verified 09/26/18 15:50) Rash diphenhydramine [From Benadryl] Allergy (Verified 09/24/18 11:36) Unknown lisinopril Allergy (Verified 09/24/18 11:36) Angioedema Sulfa (Sulfonamide Antibiotics) Allergy (Verified 09/24/18 11:36) Rash sulfamethoxazole [From Bactrim] Allergy (Verified 09/24/18 11:36) Rash trimethoprim [From Bactrim] Allergy (Verified 09/24/18 11:36) Rash Angioderm Adverse Reaction (Unknown, Uncoded 09/24/18 11:36) Unknown Medications to take at Discharge Duloxetine Hcl [Cymbalta] 120 mg PO DAILY 10/01/16 Hydroxychloroquine [Plaquenil] 200 mg PO BIDCM 10/01/16 Atorvastatin Calcium [Lipitor] 20 mg PO QHS 01/20/18 Pregabalin [Lyrica] 75 mg PO BID 08/12/18 Sevelamer Carbonate [Renvela] 1,600 mg PO TIDCM 08/12/18 Dextroamphetamine Sulfate [Dexedrine] 10 mg PO DAILY 08/13/18 Dextroamphetamine/Amphetamine [Adderall 15 mg Tablet] 15 mg PO DINNER 08/13/18 Dextroamphetamine/Amphetamine [Adderall 15 mg Tablet] 30 mg PO BREAKFAST 08/13/18 Ergocalciferol (Vitamin D2) [Drisdol] 50,000 unit PO QMONTH 08/15/18 Baclofen 20 mg PO QHS 09/09/18 Cevimeline HCl 30 mg PO BID 09/09/18 Cholestyramine (with Sugar) [Questran Packet] 4 gm PO BID 09/09/18 Cyclosporine [Restasis Multidose] 1 drop OP DAILY 09/09/18 Dextran 70/Hypromellose [Nature's Tears Eye Drops] 1 drop OP QHS 09/09/18 Famotidine 10 mg PO DAILY 09/09/18 Fluticasone 0.05% [Flonase Nasal [place]] 1 spray NASAL BID 09/09/18 Folic Acid/Vit B Complex and C [Renal-Lobo Tablet] 0.8 mg PO DAILY 09/09/18 Metoprolol Tartrate [Lopressor (beta pippa)] 25 mg PO BID 09/09/18 Mirtazapine 7.5 mg PO QHS 09/09/18 Prednisone 5 mg PO DAILY 09/09/18 Sucroferric Oxyhydroxide [Velphoro] 500 mg PO TIDCM 09/09/18 proMETHazine suppository [Phenergan] 12.5 mg RECTAL Q4H PRN PRN #20 suppos. 09/29/18 The following prescriptions were given: proMETHazine suppository [Phenergan] 12.5 mg RECTAL Q4H PRN PRN #20 suppos. PRN Reason: Nausea/Vomiting Primary Care Physician: Mitchell Bowen Chi, MD [Primary Care Provider] - Please follow up with your Primary Care Physician in: Within 5-7 days to follow- up on results of C-peptide and proinsulin levels Test Results: Test results from this visit will be discussed in further detail at your follow- up appointment, if applicable. Please Follow Up With: Arline Ambriz DO When: For dialysis Proposed Discharge Date: 09/29/18
--- NOTE | 2018-09-29 09:37 | PCM.DC.SUM ---
Discharge Date and Diagnosis Date of Admission: 09/24/18 Date of Discharge: 09/29/18 - Primary Discharge Diagnosis Acute metabolic encephalopathy Acute hypoxic and hypercapnic respiratory failure Persistent hypoglycemia - Secondary Discharge Diagnosis Chronic Problems (Last Reviewed 08/14/18 @ 10:39 by Cesar Sheth MD) Nonrheumatic mitral (valve) insufficiency (Chronic) Secondary pulmonary arterial hypertension (Chronic) Non-rheumatic tricuspid valve insufficiency (Chronic) End stage renal disease (Chronic) Chronic anemia (Chronic) Hypertension (Chronic) Narcolepsy (Chronic) Lupus nephritis (Chronic) Status post kidney and liver biopsy (fatty liver) Degenerative disc disease, cervical (Chronic) Cervical spondylosis (Chronic) Diabetes mellitus, type II (Chronic) SLE (systemic lupus erythematosus) (Chronic) Hospital Course and Treatment Imaging Results: Clinical Impression(s) from Imaging Studies Chest X-Ray 09/24/18 10:21 IMPRESSION: Prominent appearance of the right paramediastinal soft tissues although this may represent vascular ectasia lymphadenopathy thyroid enlargement could have this appearance and should be excluded. Recommend consideration for follow up CT scan of the chest to clarify. Mild cardiomegaly. Electronically Signed: Carolina Becker MD at 10:56 EST Tel , Service support , Brain CT 09/24/18 10:22 IMPRESSION: Normal unenhanced CT scan of the brain. Electronically Signed: Carolina Becker MD at 10:54 EST Tel , Service support , Chest X-Ray 09/24/18 14:51 IMPRESSION: Tubes are in adequate position. Cardiomegaly. No evidence for acute cardiopulmonary pathology. 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 Patient had apparently missed dialysis. Patient was found to be uremic on admission in addition she was noted to have acute hypoxic And hypoxic respiratory failure resulting in patient being intubated and admitted to the intensive care unit 1. Acute metabolic encephalopathy multifactorial including uremia from recent dialysis, hypoglycemia as well as hypoxia and hypercapnia. Patient encephalopathy resolved 2. Acute hypercapnic and hypoxic respiratory failure as a result of fluid overload patient was intubated admitted to the intensive care unit with consultation placed to pulmonary/intensive care vent management deferred. Patient was weaned off the vent on 09/26/2018. 3. Hyperkalemia in the context of ESRD being treated with dialysis 4. Type 1 diabetes with complication including hypoglycemia patient was managed with D10 patient still remains hypoglycemic 5. Persistent hypoglycemia ordered C-peptide as well as pro-insulin as part of her evaluation results were pending at the time of discharge patient was instructed to follow-up with Dr. BOWEN her primary care physician for results within 3-5 days 6. SLE with complications including lupus nephritis patient is on prednisone, hydroxychloroquine and cevimeline 7. End-stage renal disease currently on hemodialysis 8. Dyslipidemia-patient is on statin therapy, continued at home dose 9. Hypertension: BP stable, continue with home meds 10. Anemia secondary to anemia of chronic disease as well as chronic kidney disease H&H stable 11. Sjogren's syndrome 12. DVT prophylaxis: Subcu heparin. Objective: GENERAL: Not in acute distress HEENT: Atraumatic; EYES; conjunctiva edema NECK; supple, normal thyroid, RESPIRATORY: Diminished to auscultation bilaterally, CARDIOVASCULAR: Regular S1 S2, no audible murmurs GI: soft, non-tender, normoactive bowel sounds, : No Renal angle tenderness; EXTREMITIES: No edema, no clubbing, no cyanosis. NEURO: No lateralizing signs SKIN: No Rash PSYCH; flat affect - Physical Exam Vital Signs Temp Pulse Resp BP Pulse Ox 98.9 F 93 18 146/82 H 100 09/29/18 08:45 09/29/18 09:00 09/29/18 08:45 09/29/18 08:45 09/29/18 08:45 Oxygen Flow Rate (L/min) 2 Oxygen Delivery Method Room Air Weight: 69.1 kg Body Mass Index (BMI) 27.8 Finger Stick Blood Glucose 175 Intake and Output for Last 24 Hours 09/27/18 09/28/18 09/29/18 23:59 23:59 23:59 Intake Total 1247 / 1247 1116 / 1116 1265 / 1265 Output Total 990 / 990 2200 / 2200 Balance 257 / 257 -1084 / -1084 1265 / 1265 Laboratory Tests Past 24 Hrs 09/28/18 09/28/18 09/29/18 10:30 10:30 05:30 Sodium 132 L Potassium 3.9 Chloride 94 L Carbon Dioxide 26.0 Anion Gap 12 BUN 32 H Creatinine 5.43 H Estim Creat Clear Calc 9.77 Est GFR (MDRD) Af Amer 11 L Est GFR (MDRD) Non-Af 9 L BUN/Creatinine Ratio 5.9 L Glucose 85 C-Peptide Pending Calcium 8.3 L Miscellaneous Test Pending POC Glucose 09/29/18 09/29/18 09/28/18 06:37 03:25 21:41 POC Glucose 93 91 101 09/28/18 09/28/18 09/28/18 15:41 12:28 08:09 POC Glucose 171 H 84 112 H Discharge Diet: No Restrictions Discharge Activity: Return to Normal Activity Home Medications: Medications to take at Discharge Duloxetine Hcl [Cymbalta] 120 mg PO DAILY 10/01/16 Hydroxychloroquine [Plaquenil] 200 mg PO BIDCM 10/01/16 Atorvastatin Calcium [Lipitor] 20 mg PO QHS 01/20/18 Pregabalin [Lyrica] 75 mg PO BID 08/12/18 Sevelamer Carbonate [Renvela] 1,600 mg PO TIDCM 08/12/18 Dextroamphetamine Sulfate [Dexedrine] 10 mg PO DAILY 08/13/18 Dextroamphetamine/Amphetamine [Adderall 15 mg Tablet] 15 mg PO DINNER 08/13/18 Dextroamphetamine/Amphetamine [Adderall 15 mg Tablet] 30 mg PO BREAKFAST 08/13/18 Ergocalciferol (Vitamin D2) [Drisdol] 50,000 unit PO QMONTH 08/15/18 Baclofen 20 mg PO QHS 09/09/18 Cevimeline HCl 30 mg PO BID 09/09/18 Cholestyramine (with Sugar) [Questran Packet] 4 gm PO BID 09/09/18 Cyclosporine [Restasis Multidose] 1 drop OP DAILY 09/09/18 Dextran 70/Hypromellose [Nature's Tears Eye Drops] 1 drop OP QHS 09/09/18 Famotidine 10 mg PO DAILY 09/09/18 Fluticasone 0.05% [Flonase Nasal [place]] 1 spray NASAL BID 09/09/18 Folic Acid/Vit B Complex and C [Renal-Lobo Tablet] 0.8 mg PO DAILY 09/09/18 Metoprolol Tartrate [Lopressor (beta pippa)] 25 mg PO BID 09/09/18 Mirtazapine 7.5 mg PO QHS 09/09/18 Prednisone 5 mg PO DAILY 09/09/18 Sucroferric Oxyhydroxide [Velphoro] 500 mg PO TIDCM 09/09/18 proMETHazine suppository [Phenergan] 12.5 mg RECTAL Q4H PRN PRN #20 suppos. 09/29/18 Following Prescrptions Were Given to Patient: proMETHazine suppository [Phenergan] 12.5 mg RECTAL Q4H PRN PRN #20 suppos. PRN Reason: Nausea/Vomiting Primary Care Physician: Mitchell Bowen Chi, MD [Primary Care Provider] - Please follow up with your Primary Care Physician in: Within 5-7 days to follow-up on results of C-peptide and proinsulin levels Please Follow Up With: Arline Ambriz DO When: For dialysis Disposition: Home Minutes spent on discharge:: 35 Patient Condition:: Stable Medical Necessity - Tobacco Use Smoking Status: Unknown if ever smoked Meaningful Use Info Meaningful Use Diagnoses (Choose all that apply): None applicable Code Visit Inpatient E&M: 54954 Disch Hosp
--- NOTE | 2018-09-29 09:40 | DS.PCM_ITS ---
Discharge Date and Diagnosis Date of Admission: 09/24/18 Date of Discharge: 09/29/18 - Primary Discharge Diagnosis Acute metabolic encephalopathy Acute hypoxic and hypercapnic respiratory failure Persistent hypoglycemia - Secondary Discharge Diagnosis Chronic Problems (Last Reviewed 08/14/18 @ 10:39 by Cesar Sheth MD) Nonrheumatic mitral (valve) insufficiency (Chronic) Secondary pulmonary arterial hypertension (Chronic) Non-rheumatic tricuspid valve insufficiency (Chronic) End stage renal disease (Chronic) Chronic anemia (Chronic) Hypertension (Chronic) Narcolepsy (Chronic) Lupus nephritis (Chronic) Status post kidney and liver biopsy (fatty liver) Degenerative disc disease, cervical (Chronic) Cervical spondylosis (Chronic) Diabetes mellitus, type II (Chronic) SLE (systemic lupus erythematosus) (Chronic) Hospital Course and Treatment Imaging Results: Clinical Impression(s) from Imaging Studies Chest X-Ray 09/24/18 10:21 IMPRESSION: Prominent appearance of the right paramediastinal soft tissues although this may represent vascular ectasia lymphadenopathy thyroid enlargement could have this appearance and should be excluded. Recommend consideration for follow up CT scan of the chest to clarify. Mild cardiomegaly. Electronically Signed: Carolina Becker MD at 10:56 EST Tel , Service support , Brain CT 09/24/18 10:22 IMPRESSION: Normal unenhanced CT scan of the brain. Electronically Signed: Carolina Becker MD at 10:54 EST Tel , Service support , Chest X-Ray 09/24/18 14:51 IMPRESSION: Tubes are in adequate position. Cardiomegaly. No evidence for acute cardiopulmonary pathology. 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 Patient had apparently missed dialysis. Patient was found to be uremic on admission in addition she was noted to have acute hypoxic And hypoxic respiratory failure resulting in patient being intubated and admitted to the intensive care unit 1. Acute metabolic encephalopathy multifactorial including uremia from recent dialysis, hypoglycemia as well as hypoxia and hypercapnia. Patient encephalopathy resolved 2. Acute hypercapnic and hypoxic respiratory failure as a result of fluid overload patient was intubated admitted to the intensive care unit with consultation placed to pulmonary/intensive care vent management deferred. Patient was weaned off the vent on 09/26/2018. 3. Hyperkalemia in the context of ESRD being treated with dialysis 4. Type 1 diabetes with complication including hypoglycemia patient was managed with D10 patient still remains hypoglycemic 5. Persistent hypoglycemia ordered C-peptide as well as pro-insulin as part of her evaluation results were pending at the time of discharge patient was instructed to follow-up with Dr. BOWEN her primary care physician for results within 3-5 days 6. SLE with complications including lupus nephritis patient is on prednisone, hydroxychloroquine and cevimeline 7. End-stage renal disease currently on hemodialysis 8. Dyslipidemia-patient is on statin therapy, continued at home dose 9. Hypertension: BP stable, continue with home meds 10. Anemia secondary to anemia of chronic disease as well as chronic kidney disease H&H stable 11. Sjogren's syndrome 12. DVT prophylaxis: Subcu heparin. Objective: GENERAL: Not in acute distress HEENT: Atraumatic; EYES; conjunctiva edema NECK; supple, normal thyroid, RESPIRATORY: Diminished to auscultation bilaterally, CARDIOVASCULAR: Regular S1 S2, no audible murmurs GI: soft, non-tender, normoactive bowel sounds, : No Renal angle tenderness; EXTREMITIES: No edema, no clubbing, no cyanosis. NEURO: No lateralizing signs SKIN: No Rash PSYCH; flat affect - Physical Exam Vital Signs Temp Pulse Resp BP Pulse Ox 98.9 F 93 18 146/82 H 100 09/29/18 08:45 09/29/18 09:00 09/29/18 08:45 09/29/18 08:45 09/29/18 08:45 Oxygen Flow Rate (L/min) 2 Oxygen Delivery Method Room Air Weight: 69.1 kg Body Mass Index (BMI) 27.8 Finger Stick Blood Glucose 175 Intake and Output for Last 24 Hours 09/27/18 09/28/18 09/29/18 23:59 23:59 23:59 Intake Total 1247 / 1247 1116 / 1116 1265 / 1265 Output Total 990 / 990 2200 / 2200 Balance 257 / 257 -1084 / -1084 1265 / 1265 Laboratory Tests Past 24 Hrs 09/28/18 09/28/18 09/29/18 10:30 10:30 05:30 Sodium 132 L Potassium 3.9 Chloride 94 L Carbon Dioxide 26.0 Anion Gap 12 BUN 32 H Creatinine 5.43 H Estim Creat Clear Calc 9.77 Est GFR (MDRD) Af Amer 11 L Est GFR (MDRD) Non-Af 9 L BUN/Creatinine Ratio 5.9 L Glucose 85 C-Peptide Pending Calcium 8.3 L Miscellaneous Test Pending POC Glucose 09/29/18 09/29/18 09/28/18 06:37 03:25 21:41 POC Glucose 93 91 101 09/28/18 09/28/18 09/28/18 15:41 12:28 08:09 POC Glucose 171 H 84 112 H Discharge Diet: No Restrictions Discharge Activity: Return to Normal Activity Home Medications: Medications to take at Discharge Duloxetine Hcl [Cymbalta] 120 mg PO DAILY 10/01/16 Hydroxychloroquine [Plaquenil] 200 mg PO BIDCM 10/01/16 Atorvastatin Calcium [Lipitor] 20 mg PO QHS 01/20/18 Pregabalin [Lyrica] 75 mg PO BID 08/12/18 Sevelamer Carbonate [Renvela] 1,600 mg PO TIDCM 08/12/18 Dextroamphetamine Sulfate [Dexedrine] 10 mg PO DAILY 08/13/18 Dextroamphetamine/Amphetamine [Adderall 15 mg Tablet] 15 mg PO DINNER 08/13/18 Dextroamphetamine/Amphetamine [Adderall 15 mg Tablet] 30 mg PO BREAKFAST 08/13/18 Ergocalciferol (Vitamin D2) [Drisdol] 50,000 unit PO QMONTH 08/15/18 Baclofen 20 mg PO QHS 09/09/18 Cevimeline HCl 30 mg PO BID 09/09/18 Cholestyramine (with Sugar) [Questran Packet] 4 gm PO BID 09/09/18 Cyclosporine [Restasis Multidose] 1 drop OP DAILY 09/09/18 Dextran 70/Hypromellose [Nature's Tears Eye Drops] 1 drop OP QHS 09/09/18 Famotidine 10 mg PO DAILY 09/09/18 Fluticasone 0.05% [Flonase Nasal [place]] 1 spray NASAL BID 09/09/18 Folic Acid/Vit B Complex and C [Renal-Lobo Tablet] 0.8 mg PO DAILY 09/09/18 Metoprolol Tartrate [Lopressor (beta pippa)] 25 mg PO BID 09/09/18 Mirtazapine 7.5 mg PO QHS 09/09/18 Prednisone 5 mg PO DAILY 09/09/18 Sucroferric Oxyhydroxide [Velphoro] 500 mg PO TIDCM 09/09/18 proMETHazine suppository [Phenergan] 12.5 mg RECTAL Q4H PRN PRN #20 suppos. 09/29/18 Following Prescrptions Were Given to Patient: proMETHazine suppository [Phenergan] 12.5 mg RECTAL Q4H PRN PRN #20 suppos. PRN Reason: Nausea/Vomiting Primary Care Physician: Mitchell Bowen Chi, MD [Primary Care Provider] - Please follow up with your Primary Care Physician in: Within 5-7 days to follow- up on results of C-peptide and proinsulin levels Please Follow Up With: Arline Ambriz DO When: For dialysis Disposition: Home Minutes spent on discharge:: 35 Patient Condition:: Stable Medical Necessity - Tobacco Use Smoking Status: Unknown if ever smoked Meaningful Use Info Meaningful Use Diagnoses (Choose all that apply): None applicable Code Visit Inpatient E&M: 54959 Disch Hosp
--- NOTE | 2018-09-29 10:22 | CASEMGMT ---
ROSHAN ALCARAZ Note: Home Health arranged through [facility] for PT/OT/RN. Order, face sheet, DC Summary faxed to [employer] @ [phone]. Call to [facility] Mgr through [facility] called. Message left with update that pt is returning home today. Pt's aide services are provided by [facility] also. -Re-introduced role of CM to patient in room. Let pt know she is being discharged to home and [facility] and CM Nita were updated. Pt is agreeable to DC Plan. Also let pt know that her CM was notified of needing [facility] and pt plans to see physician her sister sees in [place] and to review options for transportation assistance. Pt will call to set up appointment as new pt. Pt's brother will be picking her up. 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 ROSHAN ALCARAZ let pt know to expect f/u phone call tomorrow to review if she has any questions. Ramón BORRERO RN AC
[2018-09-30 09:28] LABS: C-Peptide 23.1 ng/mL (1.1-4.4)
--- NOTE | 2018-09-30 10:32 | CASEMGMT ---
ROSHAN CM Note. Call received that fax from yesterday had not been received. Information refaxed to [employer], and let her know this information has been refaxed. [facility] to see pt today. Ramón GALEANON RN ACM
--- NOTE | 2018-09-30 11:51 | CASEMGMT ---
ROSHAN ALCARAZ DC Phone Call DC Date: 09/29/18 DC Disposition: Home LACE/STRATA: 15/ DC Appointments: yes Attempted call to home. No answer. ROSHAN ALCARAZ had call from [facility] and they plan to see pt today. Ramón GALEANON RN ACM.
== END 2018-09-29 11:00 | disposition home health service (06) | DRG 70 ==
LOC: ED 10:52 → PCU 11:57 → ICU 16:33 → MS2 09-27 15:53
PROVIDERS: Internal Medicine Nephrology; Admitting Provider Student in an Organized Health Care Education/Training Program; Emergency Provider Emergency Medicine; Family Provider Family Medicine Geriatric Medicine; PCP Family Medicine Geriatric Medicine; Referring Provider Internal Medicine; Visit Provider Internal Medicine
DX: G93.41 Metabolic encephalopathy (principal); J96.02 Acute respiratory failure with hypercapnia; N18.6 End stage renal disease; J96.01 Acute respiratory failure with hypoxia; I12.0 Hypertensive chronic kidney disease with stage 5 chronic kidney disease or end stage renal disease; E87.5 Hyperkalemia; E11.22 Type 2 diabetes mellitus with diabetic chronic kidney disease; I16.0 Hypertensive urgency; Z99.2 Dependence on renal dialysis; Z91.15 Patient's noncompliance with renal dialysis; E11.649 Type 2 diabetes mellitus with hypoglycemia without coma; M32.14 Glomerular disease in systemic lupus erythematosus; E87.79 Other fluid overload; M35.00 Sjogren syndrome, unspecified; D63.1 Anemia in chronic kidney disease; E78.5 Hyperlipidemia, unspecified; I27.21 Secondary pulmonary arterial hypertension; G47.419 Narcolepsy without cataplexy; I36.1 Nonrheumatic tricuspid (valve) insufficiency; M47.812 Spondylosis without myelopathy or radiculopathy, cervical region; Z79.899 Other long term (current) drug therapy
CPT/HCPCS: 31500; 31720; 36415; 36600; 70450; 71045; 80048; 80069; 80307; 82550; 82803; 82962; 83735; 84478; 84484; 84681; 85025; 85027; 87340; 90937; 93005; 94002; 94003; 94640; 94660; 94770; 95831; 97110; 97162; 97165; 97530; 97802; 99251; 99285; J7030; A4216; C1751; G0257; G0463; J2405

== ENCOUNTER → 2018-09-30 10:14 | Outpatient (CLI) | payer MEDICARE, MEDICAID, SELFPAY ==
[2018-09-24 14:05] VITALS: BMI 27.8
--- NOTE | 2018-09-30 10:30 | RAD_ITS ---
STUDY: X-RAY - ABDOMEN/PELVIS REASON FOR EXAM: Female, 48 years old. Diarrhea. TECHNIQUE: Two AP supine views of the abdomen and pelvis. COMPARISON: Comparison is made with prior examination dated August 13, 2018. FINDINGS: Normal visualized lung bases. There is an unremarkable bowel gas pattern. The visualized liver, spleen and kidneys are grossly normal in size and morphology. Normal soft tissue structures. Normal visualized osseous structures. RAD/Abdomen Single View IMPRESSION: Unremarkable examination. Electronically Signed: Jonathan Garcia MD at 10:58 EST Tel [phone], Service support ,
--- OUTSIDE RECORDS SUMMARY | 2018-12-04 18:09 | XMS RPT_ITS ---
:1970 Author Organization OHIP Support Name Relationship Address Phone D Unavailable Unavailable Unavailable SANDRA AMBRIZ Unavailable Unavailable + YONKELMARIO, CHI Unavailable Unavailable + D Unavailable Unavailable Unavailable IESHA AMBRIZE Unavailable Unavailable + YONKELLO, CHI Unavailable Unavailable + D Unavailable Unavailable Unavailable SANDRA AMBRIZ Unavailable Unavailable + YONKELLO, CHI Unavailable Unavailable + D Unavailable Unavailable Unavailable SANDRA AMBRIZ Unavailable Unavailable + YONKELLO, CHI Unavailable Unavailable + D Unavailable Unavailable Unavailable SANDRA AMBRIZ Unavailable Unavailable + YONKELLO, CHI Unavailable Unavailable + D Unavailable Unavailable Unavailable IESHA AMBRIZE Unavailable Unavailable + YONKELLO, CHI Unavailable Unavailable + D Unavailable Unavailable Unavailable IESHA AMBRIZE Unavailable Unavailable + YONKELLO, CHI Unavailable Unavailable + D Unavailable Unavailable Unavailable SANDRA AMBRIZ Unavailable Unavailable + YONKELLO, CHI Unavailable Unavailable + D Unavailable Unavailable Unavailable IESHA AMBRIZE Unavailable Unavailable + YONKELLO, CHI Unavailable Unavailable + D Unavailable Unavailable Unavailable IESHA AMBRIZE Unavailable Unavailable + YONKELLO, CHI Unavailable Unavailable + D Unavailable Unavailable Unavailable PBIESHAE Unavailable Unavailable + YONKELLO, CHI Unavailable Unavailable + PAINTER PAVITHRA Unavailable Unavailable Unavailable PB SANDRA Unavailable Unavailable + YANKELLO, ROSS Unavailable Unavailable Unavailable PAINTER PAVITHRA Unavailable Unavailable Unavailable PB SANDRA Unavailable Unavailable + YANKELLO, ROSS Unavailable Unavailable Unavailable PAINTER, PAVITHRA Unavailable Unavailable Unavailable PB SANDRA Unavailable Unavailable + YANKELLO, ROSS Unavailable Unavailable Unavailable D Unavailable Unavailable Unavailable PB SANDRA Unavailable Unavailable + YONKELLO, CHI Unavailable Unavailable + D Unavailable Unavailable Unavailable PB SANDRA Unavailable Unavailable + YONKELLO, CHI Unavailable Unavailable + D Unavailable Unavailable Unavailable PB, SANDRA Unavailable Unavailable + YONKELLO, CHI Unavailable Unavailable + D Unavailable Unavailable Unavailable PB, SANDRA Unavailable Unavailable + YONKELLO, CHI Unavailable Unavailable + D Unavailable Unavailable Unavailable PB SANDRA Unavailable Unavailable + YONKELLO, CHI Unavailable Unavailable + D Unavailable Unavailable Unavailable PB SANDRA Unavailable Unavailable + YONKELLO, CHI Unavailable Unavailable + D Unavailable Unavailable Unavailable PB SANDRA Unavailable Unavailable + [place] [address] YONKELLO, CHI Unavailable Unavailable + [place] [address] D Unavailable Unavailable Unavailable PB SANDRA Unavailable Unavailable + [place] [address] YONKELLO, CHI Unavailable Unavailable + [place] [address] D Unavailable Unavailable Unavailable PB, SANDRA Unavailable Unavailable + [place] [address] YONKELLO, CHI Unavailable Unavailable + [place] [address] D Unavailable Unavailable Unavailable PB, SANDRA Unavailable Unavailable + [place] [address] YONKELLO, CHI Unavailable Unavailable + [place] [address] D Unavailable Unavailable Unavailable PB, SANDRA Unavailable Unavailable + [place] [address] YONKELLO, CHI Unavailable Unavailable + [place] [address] D Unavailable Unavailable Unavailable PB, SANDRA Unavailable Unavailable + [place] [address] YONKELLO, CHI Unavailable Unavailable + [place] [address] D Unavailable Unavailable Unavailable PB, SANDRA Unavailable Unavailable + [place] [address] YONKELLO, CHI Unavailable Unavailable + [place] [address] D Unavailable Unavailable Unavailable PB, SANDRA Unavailable . + [place] [address] YONKELLO, CHI Unavailable Unavailable + [place] [address] D Unavailable Unavailable Unavailable PB, SANDRA Unavailable . + [place] [address] YONKELLO, CHI Unavailable Unavailable + [place] [address] D Unavailable Unavailable Unavailable PB, SANDRA Unavailable . + [place] [address] YONKELLO, CHI Unavailable . + [place] [address] Pb, Sandra Unavailable Unavailable + Sarah Beth Banegasi Unavailable Unavailable + Pb, Sandra Unavailable Unavailable + Arjunlo, Ross Unavailable Unavailable + D Unavailable Unavailable Unavailable PB, SANDRA Unavailable Unavailable + [place] [address] YONKELLO, CHI Unavailable Unavailable + [place] [address] PAINTER, PAVITHRA Unavailable Unavailable Unavailable PB, SANDRA Unavailable Unavailable + YANKELLO, ROSS Unavailable Unavailable Unavailable PAINTER, PAVITHRA Unavailable Unavailable Unavailable PB, SANDRA Unavailable Unavailable + ARJUNLO, ROSS Unavailable Unavailable Unavailable PAINTER, PAVITHRA Unavailable Unavailable Unavailable PB, SANDRA Unavailable Unavailable + SARAH BETH BANEGASI Unavailable Unavailable Unavailable D Unavailable Unavailable Unavailable PB SANDRA Unavailable . + [place] [address] YONKELLO, CHI Unavailable . + [place] [address] D Unavailable Unavailable Unavailable PB SANDRA Unavailable . + [place] [address] YONKELLO, CHI Unavailable . + [place] [address] D Unavailable Unavailable Unavailable PB SANDRA Unavailable Unavailable + [place] [address] YONKELLO, CHI Unavailable Unavailable + [place] [address] D Unavailable Unavailable Unavailable PB SANDRA Unavailable Unavailable + [place] [address] YONKELLO, CHI Unavailable Unavailable + [place] [address] D Unavailable Unavailable Unavailable PB SANDRA Unavailable Unavailable + [place] [address] YONKELLO, CHI Unavailable Unavailable + [place] [address] Pb Sandra Unavailable Unavailable + Makenzie Ross Unavailable Unavailable + D Unavailable Unavailable Unavailable PB SANDRA Unavailable Unavailable + [place] [address] YONKELLO, CHI Unavailable Unavailable + [place] [address] D Unavailable Unavailable Unavailable PB SANDRA Unavailable Unavailable + [place] [address] YONKELLO, CHI Unavailable Unavailable + [place] [address] D Unavailable Unavailable Unavailable PB, SANDRA Unavailable Unavailable + [place] [address] YONKELLO, CHI Unavailable Unavailable + [place] [address] D Unavailable Unavailable Unavailable PB, SANDRA Unavailable . + [place] [address] YONKELLO, CHI Unavailable . + [place] [address] Pb Sandra Unavailable Unavailable + Ross Banegas Unavailable Unavailable + Pb Sandra Unavailable Unavailable + Makenzie, Ross Unavailable Unavailable + Pb Sandra Unavailable Unavailable + Ross Banegas Unavailable Unavailable + D Unavailable Unavailable Unavailable SANDRA AMBRIZ Unavailable . + [place] [address] YONKELLO, CHI Unavailable [address] + [place] [address] D Unavailable Unavailable Unavailable SANDRA AMBRIZ Unavailable [address] + [place] [address] YONKELLO, CHI Unavailable [address] + [place] [address] D Unavailable Unavailable Unavailable SANDRA AMBRIZ Unavailable [address] + [place] [address] YONKELLO, CHI Unavailable [address] + [place] [address] D Unavailable Unavailable Unavailable SANDRA AMBRIZ Unavailable [address] + [place] [address] YONKELLO, CHI Unavailable [address] + [place] [address] D Unavailable Unavailable Unavailable SANDRA AMBRIZ Unavailable [address] + [place] [address] YONKELLO, CHI Unavailable [address] + [place] [address] D Unavailable Unavailable Unavailable SANDRA AMBRIZ Unavailable [address] + [place] [address] YONKELLO, CHI Unavailable [address] + [place] [address] D Unavailable Unavailable Unavailable SANDRA AMBRIZ Unavailable [address] + [place] [address] YONKELLO, CHI Unavailable [address] + [place] [address] D Unavailable Unavailable Unavailable SANDRA AMBRIZ Unavailable [address] + [place] [address] YONKELLO, CHI Unavailable [address] + [place] [address] D Unavailable Unavailable Unavailable SANDRA AMBRIZ Unavailable [address] + [place] [address] YONKELLO, CHI Unavailable [address] + [place] [address] D Unavailable Unavailable Unavailable SANDRA AMBRIZ Unavailable [address] + [place] [address] YONKELLO, CHI Unavailable [address] + [place] [address] D Unavailable Unavailable Unavailable SANDRA AMBRIZ Unavailable [address] + [place] [address] YONKELLO, CHI Unavailable [address] + [place] [address] D Unavailable Unavailable Unavailable SANDRA AMBRIZ Unavailable [address] + [place] [address] YONKELLO, CHI Unavailable [address] + [place] [address] D Unavailable Unavailable Unavailable SANDRA AMBRIZ Unavailable [address] + [place] [address] YONKELLO, CHI Unavailable [address] + [place] [address] PAVITHRA PAINTER Unavailable Unavailable Unavailable SANDRA AMBRIZ Unavailable Unavailable + ROSS BANEGAS Unavailable Unavailable Unavailable PAVITHRA PAINTER Unavailable Unavailable Unavailable SANDRA AMBRIZ Unavailable Unavailable + SARAH BETH BANEGASI Unavailable Unavailable Unavailable D Unavailable Unavailable Unavailable SANDRA AMBRIZ Unavailable [address] + [place] [address] YONKELLO, CHI Unavailable [address] + [place] [address] D Unavailable Unavailable Unavailable SANDRA AMBRIZ Unavailable [address] + [place] [address] YONKELLO, CHI Unavailable [address] + [place] [address] D Unavailable Unavailable Unavailable SANDRA AMBRIZ Unavailable [address] + [place] [address] YONKELLO, CHI Unavailable [address] + [place] [address] D Unavailable Unavailable Unavailable PB, SANDRA Unavailable . + [place] [address] YONKELLO, CHI Unavailable . + [place] [address] D Unavailable Unavailable Unavailable PB, SANDRA Unavailable . + [place] [address] YONKELLO, CHI Unavailable . + [place] [address] D Unavailable Unavailable Unavailable PB, SANDRA Unavailable . + [place] [address] YONKELLO, CHI Unavailable . + [place] [address] D Unavailable Unavailable Unavailable PB, SANDRA Unavailable [...] PB, SANDRA Unavailable Unavailable + [place] [address] YONKELLO, CHI Unavailable Unavailable + [place] [address] D Unavailable Unavailable Unavailable PB, SANDRA Unavailable Unavailable + YONKELLO, CHI Unavailable Unavailable + D Unavailable Unavailable Unavailable PB, SANDRA Unavailable Unavailable + YONKELLO, CHI Unavailable Unavailable + D Unavailable Unavailable Unavailable PB, SANDRA Unavailable 1 + [place] [address] YONKELLO, CHI Unavailable 1 + [place] [address] D Unavailable Unavailable Unavailable PB, SANDRA Unavailable 1 + [place] [address] YONKELLO, CHI Unavailable 1 + [place] [address] D Unavailable Unavailable Unavailable PB, SANDRA Unavailable 1 + [place] [address] YONKELLO, CHI Unavailable 1 + [place] [address] D Unavailable Unavailable Unavailable PB, SANDRA Unavailable 1 + [place] [address] YONKELLO, CHI Unavailable 1 + [place] [address] D Unavailable Unavailable Unavailable PB, SANDRA Unavailable . + [place] [address] YONKELLO, CHI Unavailable . + [place] [address] D Unavailable Unavailable Unavailable PB, SANDRA Unavailable . + [place] [address] YONKELLO, CHI Unavailable . + [place] [address] D Unavailable Unavailable Unavailable PB, SANDRA Unavailable . + [place] [address] YONKELLO, CHI Unavailable . + [place] [address] D Unavailable Unavailable Unavailable PB, SANDRA Unavailable . + [place] [address] YONKELLO, CHI Unavailable . + [place] [address] D Unavailable Unavailable Unavailable PB, SANDRA Unavailable . + [place] [address] YONKELLO, CHI Unavailable . + [place] [address] D Unavailable Unavailable Unavailable PB, SANDRA Unavailable . + [place] [address] YONKELLO, CHI Unavailable . + [place] [address] D Unavailable Unavailable Unavailable PB, SANDRA Unavailable . + [place] [address] YONKELLO, CHI Unavailable . + [place] [address] D Unavailable Unavailable Unavailable PB, SANDRA Unavailable . + [place] [address] YONKELLO, CHI Unavailable . + [place] [address] D Unavailable Unavailable Unavailable PB, SANDRA Unavailable . + [place] [address] YONKELLO, CHI Unavailable . + [place] [address] PAVITHRA PAINTER Unavailable Unavailable Unavailable PB, SANDRA Unavailable Unavailable + YANNYASIALO, ROSS Unavailable Unavailable Unavailable PAVITHRA PAINTER Unavailable Unavailable Unavailable PB, SANDRA Unavailable Unavailable + YANKELLO, ROSS Unavailable Unavailable Unavailable D Unavailable Unavailable Unavailable PB, SANDRA Unavailable . + [place] [address] YONKELLO, CHI Unavailable . + [place] [address] D Unavailable Unavailable Unavailable PB, SANDRA Unavailable Unavailable + [place] [address] YONKELLO, CHI Unavailable . + [place] [address] D Unavailable Unavailable Unavailable PB, SANDRA Unavailable Unavailable + [place] [address] YONKELLO, CHI Unavailable . + [place] [address] Care Team Providers Name Role Phone Dr. Lori Pfeiffer Attending Unavailable Vu, Mitchell-chi Primary Care Unavailable Dr. Lori Pfeiffer Attending Unavailable Vu, Mitchell-chi Primary Care Unavailable Dr. Lori Pfeiffer Attending Unavailable Vu, Mitchell-chi Primary Care Unavailable Dr. Lori Pfeiffer Attending Unavailable Vu, Mitchell-chi Primary Care Unavailable Dr. Vicky Martinez Admitting Unavailable Juan Dr. Vicky Gonzalez Attending Unavailable Pb, Dr. Arline Hayes Referring Unavailable Vu, Mitchell-chi Primary Care Unavailable Kentrell, Dr. Lori Moeller Attending Unavailable Vu, Mitchell-chi Primary Care Unavailable Kentrell, Dr. Lori Moeller Attending Unavailable Vu, Mitchell-chi Primary Care Unavailable Kentrell, Dr. Lori Moeller Attending Unavailable Vu, Mitchell-chi Primary Care Unavailable Kentrell, Dr. Lori Moeller Attending Unavailable Vu, Mitchell-chi Primary Care Unavailable Kentrell, Dr. Lori Moeller Attending Unavailable Vu, Mitchell-chi Primary Care Unavailable Joe, Dr. Naranjo Attending Unavailable Pb, Dr. Arline Hayes Referring Unavailable Uv, Mitchell-chi Primary Care Unavailable Kentrell, Dr. Lori Moeller Attending Unavailable Vu, Mitchell-chi Primary Care Unavailable GAIL Attending Unavailable Kentrell, Dr. Lori Moeller Referring Unavailable Vu, Mitchell-chi Primary Care Unavailable Kentrell, Dr. Lori Moeller Attending Unavailable Vu, Mitchell-chi Primary Care Unavailable Kentrell, Dr. Lori Moeller Attending Unavailable Vu, Mitchell-chi Primary Care Unavailable HACKSHAWWADEH HEAVEN Attending Unavailable VU, MITCHELL-CHI Referring Unavailable VU, MITCHELL-CHI Primary Care Unavailable PB CABALLERO Attending Unavailable VU, MITCHELL-CHI Referring Unavailable VU, MITCHELL-CHI Primary Care Unavailable HACKSHAW KVH HEAVEN Attending Unavailable VU, MITCHELL-CHI Referring Unavailable VU, MITCHELL-CHI Primary Care Unavailable PB CABALLERO Attending Unavailable VU, MITCHELL-CHI Referring Unavailable VU, MITCHELL-CHI Primary Care Unavailable HACKSHAW KVH HEAVEN Attending Unavailable VU, MITCHELL-CHI Referring Unavailable VU, MITCHELL-CHI Primary Care Unavailable PB CABALLERO Attending Unavailable VU, MITCHELL-CHI Referring Unavailable VU, MITCHELL-CHI Primary Care Unavailable HACKSHAW, KVH HEAVEN Attending Unavailable VU, MITCHELL-CHI Referring Unavailable VU, MITCHELL-CHI Primary Care Unavailable HACKSHAW, KVH HEAVEN Attending Unavailable VU, MITCHELL-CHI Referring Unavailable VU, MITCHELL-CHI Primary Care Unavailable PB CABALLERO Attending Unavailable VU, MITCHELL-CHI Referring Unavailable VU, [...] Referring Unavailable VU, MITCHELL-CHI Primary Care Unavailable [place], Cami Attending Unavailable PROVIDER, UNKNOWN Referring Unavailable VU, MITCHELL-CHI Primary Care Unavailable Crys, Cami Attending Unavailable PROVIDER, UNKNOWN Referring Unavailable VU, MITCHELL-CHI Primary Care Unavailable Eren Calvillo Attending Unavailable Ashelfah, Ghasem Referring Unavailable CebuRigo capps Attending Unavailable Ashelfah, Ghasem Referring Unavailable Stef Mariza Leticia Admitting Unavailable Drew Goode D.O. Attending Unavailable Vu, Mitchell Chi Primary Care Unavailable Arline Ambriz Consulting Unavailable Ross Esparza Consulting Unavailable KittoeFlako Consulting Unavailable Vu, Mitchell Chi Attending Unavailable Vu, Mitchell Chi Referring Unavailable Vu, Mitchell Chi Primary Care Unavailable MAURI HERRING Attending Unavailable Vu, Mitchell Chi Primary Care Unavailable Rigo Valverde Attending Unavailable Vu, Mitchell Chi Primary Care Unavailable Ritikabujefry Rigo Attending Unavailable Vu, Mitchell Chi Referring Unavailable Vu, Mitchell Chi Primary Care Unavailable Anabela Lewis PA-C Attending Unavailable Vu, Mitchell Chi Referring Unavailable Vu, Mitchell Chi Primary Care Unavailable Cesar Roberts Attending Unavailable Cesar Roberts Referring Unavailable Vu, Mitchell Chi Primary Care Unavailable Cesar Sheth Attending Unavailable [place] Cesar Referring Unavailable Vu, Mitchell Chi Primary Care Unavailable Abram Rigo Attending Unavailable DossiNancy arriaga D.C. Attending Unavailable DossiNancy arriaga D.C. Referring Unavailable Vu, Mitchell Chi Primary Care Unavailable Nancy Magaña D.C. Attending Unavailable Vu, Mitchell Chi Referring Unavailable Vu, Mitchell Chi Primary Care Unavailable Abram Rigo Attending Unavailable Cebul Rigo Referring Unavailable Vu, Mitchell Chi Primary Care Unavailable Iris Shah Attending Unavailable Vu, Mitchell Chi Referring Unavailable Vu, Mitchell Chi Primary Care Unavailable Desirae Minaya Attending Unavailable Desirae iMnaya Referring Unavailable Vu, Mitchell Chi Primary Care Unavailable Desirae Minaya Consulting Unavailable Arline Ambriz Attending Unavailable Arline Ambriz Referring Unavailable Vu, Mitchell Chi Primary Care Unavailable Cesar Roberts Attending Unavailable Vu, Mitchell Chi Referring Unavailable Cami Sanchez Admitting Unavailable Cami Sanchez Attending Unavailable Vu, Mitchell Chi Primary Care Unavailable Daniel Cami Consulting Unavailable Desirae Minaya Attending Unavailable Vu, Mitchell Chi Primary Care Unavailable Desirae Minaya Referring Unavailable MarcanthonyDesirae Attending Unavailable Vu, Mitchell Chi Referring Unavailable Vu, Mitchell Chi Primary Care Unavailable Desirae Minaya Attending Unavailable Vu, Mitchell Chi Primary Care Unavailable Desirae Minaya Referring Unavailable Cesar Roberts Attending Unavailable CebuRigo capps Attending Unavailable Cebul, Rigo Referring Unavailable Vu, Mitchell Chi Primary Care Unavailable Abram Rigo Consulting Unavailable DossiNancy arriaga D.C. Attending Unavailable Vu, Mitchell Chi Referring Unavailable Vu, Mitchell Chi Primary Care Unavailable Iris Shah Attending Unavailable Chicorelli Iris Referring Unavailable Vu, Mitchell Chi Primary Care Unavailable Iris Shah Attending Unavailable Vu, Mitchell Chi Referring Unavailable Vu, Mitchell Chi Primary Care Unavailable DosNancy roberson D.C. Attending Unavailable Vu, Mitchell Chi Referring Unavailable Vu, Mitchell Chi Primary Care Unavailable Abram Rigo Attending Unavailable Cebul, Rigo Referring Unavailable Vu, Mitchell Chi Primary Care Unavailable DosNancy roberson D.C. Attending Unavailable Vu, Mitchell Chi Referring Unavailable Vu, Mitchell Chi Primary Care Unavailable DosNancy roberson D.C. Attending Unavailable Vu, Mitchell Chi Referring Unavailable Vu, Mitchell Chi Primary Care Unavailable Cesar Roberts Attending Unavailable Cesar Roberts Attending Unavailable Cesar Roberts Referring Unavailable Vu, Mitchell Chi Primary Care Unavailable DosNancy roberson D.C. Attending Unavailable Vu, Mitchell Chi Referring Unavailable Vu, Mitchell Chi Primary Care Unavailable Debbie PA-CAnabela Attending Unavailable Vu, Mitchell Chi Referring Unavailable Vu, Mitchell Chi Primary Care Unavailable Vu, Mitchell Chi Attending Unavailable Vu, Mitchell Chi Referring Unavailable Vu, Mitchell Chi Primary Care Unavailable Cesar Sheth Attending Unavailable Debbie PA-CAnabela Attending Unavailable Vu, Mitchell Chi Referring Unavailable Vu, Mitchell Chi Primary Care Unavailable Lewis PA-CAnabela Attending Unavailable Lewis PA-C Anabela Referring Unavailable Vu, Mitchell Chi Primary Care Unavailable Garcia Marte Attending Unavailable Vu, Mitchell Chi Referring Unavailable Vu, Mitchell Chi Primary Care Unavailable Garcia Marte Consulting Unavailable Drew Goode D.O. Attending Unavailable Vu, Mitchell Chi Referring Unavailable Cesar Roberts Attending Unavailable Vu, Mitchell Chi Referring Unavailable Vu, Mitchell Chi Primary Care Unavailable Anabela Lewis PA-C Attending Unavailable Vu, Mitchell Chi Referring Unavailable Vu, Mitchell Chi Primary Care Unavailable Vu, Mitchell Chi Attending Unavailable Vu, Mitchell Chi Primary Care Unavailable Anabela Lewis PA-C Attending Unavailable Vu, Mitchell Chi Referring Unavailable Vu, Mitchell Chi Primary Care Unavailable CeRigo banuelos Attending Unavailable Cebul, Rigo Referring Unavailable Vu, Mitchell Chi Primary Care Unavailable Rigo Valverde Consulting Unavailable Cevin Rigo Attending Unavailable Cebul, Rigo Referring Unavailable Vu, Mitchell Chi Primary Care Unavailable Anabela Lewis PA-C Attending Unavailable Vu, Mitchell Chi Referring Unavailable Vu, Mitchell Chi Primary Care Unavailable Rose Chandler Attending Unavailable Vu, Mitchell Chi Attending Unavailable Vu, Mitchell Chi Primary Care Unavailable Koram, Mariza Leticia Admitting Unavailable Flako Camejo Attending Unavailable KittoeFlako Referring Unavailable Vu, Mitchell Chi Primary Care Unavailable Pb, Arline Consulting Unavailable Isaias, Ross Consulting Unavailable Kittoe, Flako Consulting Unavailable Koram, Mariza Leticia Admitting Unavailable Flako Camejo Attending Unavailable KittoeFlako Referring Unavailable Vu, Mitchell Chi Primary Care Unavailable Pb, Arline Consulting Unavailable Isaias, Rsos Consulting Unavailable Kittoe, Flako Consulting Unavailable Koram, Mariza Leticia Admitting Unavailable Flako Camejo Attending Unavailable Vu, Mitchell Chi Primary Care Unavailable Pb, Arline Consulting Unavailable Isaias, Ross Consulting Unavailable Kittoe, Flako Consulting Unavailable Koram, Mariza Leticia Admitting Unavailable Drew Goode D.O. Attending Unavailable Vu, Mitchell Chi Primary Care Unavailable Pb, Arline Consulting Unavailable Isaias, Ross Consulting Unavailable Kittoe, Flako Consulting Unavailable Koram, Mariza Leticia Admitting Unavailable KitFlako burrell Attending Unavailable Vu, Mitchell Chi Primary Care Unavailable Pb, Arline Consulting Unavailable Isaias, Ross Consulting Unavailable Kittoe, Flako Consulting Unavailable Koram, Mariza Leticia Admitting Unavailable IsaiasRoss Attending Unavailable Vu, Mitchell Chi Primary Care Unavailable Pb, Arline Consulting Unavailable Isaias, Ross Consulting Unavailable Koram, Mariza Leticia Consulting Unavailable Koram, Mariza Leticia Admitting Unavailable Garcia Mead Attending Unavailable Vu, Mitchell Chi Primary Care Unavailable Pb, Arline Consulting Unavailable Isaias, Ross Consulting Unavailable Koram, Mariza Leticia Consulting Unavailable Koram, Mariza Leticia Admitting Unavailable Koram, Mariza Leticia Attending Unavailable Vu, Mitchell Chi Primary Care Unavailable Pb, Arline Consulting Unavailable Koram, Mariza Leticia Consulting Unavailable Flako Camejo Attending Unavailable Flako Camejo Referring Unavailable Vu, Mitchell Chi Primary Care Unavailable Koram, Mariza Leticia Admitting Unavailable Pb, Arline Consulting Unavailable Isaias Ross Consulting Unavailable Vu, Mitchell Chi Attending Unavailable Vu, Mitchell Chi Primary Care Unavailable Vu, Mitchell Chi Primary Care Unavailable Federica Fish Attending Unavailable Pb, Arline Attending Unavailable Vu, Mitchell Chi Attending Unavailable Vu, Mitchell Chi Primary Care Unavailable Diogo Gaviria Attending Unavailable Diogo Gaviria Referring Unavailable Vu, Mitchell Chi Primary Care Unavailable Vu, Mitchell Chi Primary Care Unavailable Referred, Self Attending Unavailable Garcia Marte Attending Unavailable Vu, Mitchell Chi Primary Care Unavailable Vu, Mitchell Chi Referring Unavailable Jopperi, Cami Admitting Unavailable Yokasta Burgos Attending Unavailable Vu, Mitchell Chi Primary Care Unavailable Pb, Arline Consulting Unavailable [place], Cesar Consulting Unavailable White, Yokasta Consulting Unavailable Jopperi, Cami Admitting Unavailable Anabela Lewis PA-C Attending Unavailable Vu, Mitchell Chi Primary Care Unavailable Pb, Arline Consulting Unavailable Domenic, Cesar Consulting Unavailable White, Yokasta Consulting Unavailable Jopperi, Cami Admitting Unavailable Domenic Cesar Attending Unavailable Vu, Mitchell Chi Primary Care Unavailable Pb, Arline Consulting Unavailable [place], Cesar Consulting Unavailable Ashelfah, Ghasem Consulting Unavailable Jopperi, Cami Admitting Unavailable Ashelfah, Ghasem Attending Unavailable Vu, Mitchell Chi Primary Care Unavailable Pb, Arline Consulting Unavailable Woodbury, Cesar Consulting Unavailable Ashelfah, Ghasem Consulting Unavailable Jopperi, Cami Admitting Unavailable Ashelfah, Ghasem Attending Unavailable Vu, Mitchell Chi Primary Care Unavailable Pb, Arline Consulting Unavailable Ashelfah, Ghasem Consulting Unavailable Yokasta Burgos Attending Unavailable Vu, Mitchell Chi Primary Care Unavailable Jopperi, Cami Admitting Unavailable Pb, Arline Consulting Unavailable Woodbury, Cesar Consulting Unavailable Vu, Mitchell Chi Primary Care Unavailable Dao Neumann Attending Unavailable Cesar Roberts Attending Unavailable Cesar Roberts Referring Unavailable Vu, Mitchell Chi Primary Care Unavailable Rigo Valverde Attending Unavailable Pb Arline Referring Unavailable Vu, Mitchell Chi Attending Unavailable Vu, Mitchell Chi Referring Unavailable Vu, Mitchell Chi Primary Care Unavailable Vu, Mitchell Chi Attending Unavailable Vu, Mitchell Chi Primary Care Unavailable Desirae Minaya Attending Unavailable Vu, Mitchell Chi Referring Unavailable Nancy Magaña D.C. Attending Unavailable Vu, Mitchell Chi Referring Unavailable Vu, Mitchell Chi Primary Care Unavailable Anabela Lewis PA-C Attending Unavailable Vu, Mitchell Chi Referring Unavailable Vu, Mitchell Chi Primary Care Unavailable Vu, Mitchell Chi Attending Unavailable Vu, Mitchell Chi Referring Unavailable Vu, Mitchell Chi Primary Care Unavailable PROBLEMS PROBLEMS DATE TYPE CONDITION / CODE ATTENDING STATUS SOURCE Unknown R15.9 - Full Vu, Mitchell Chi Active [place] 9 incontinence of feces Community / R15.9(ICD-10) Hospital Repository Admitting Follow-up / 145() PB CABALLERO [place] [address] diagnosis [facility] Repository Admitting Medication Refill / [place] [address] diagnosis [id number]() [facility] Repository Admitting Low Blood Sugar / [place] [address] diagnosis 228323() [facility] Repository Admitting End stage renal Dr. Kentrell [place] [address] diagnosis disease / [facility] N18.6(ICD-10) Repository Final End stage renal Dr. Kentrell [place] [address] diagnosis disease / [facility] (discharge) N18.6(ICD-10) Repository Admitting Encounter for other Dr. Kentrell [place] [address] diagnosis preprocedural [facility] examination / Repository Z01.818(ICD-10) Final Encounter for other [facility]. [facility] 8 diagnosis preprocedural [facility] (discharge) examination / Repository Z01.818(ICD-10) Unknown R94.31 - Abnormal [place], Active [place] 8 electrocardiogram [facility] [ECG] [EKG] / Hospital R94.31(ICD-10) Repository Unknown I34.0 - Nonrheumatic [place], Active [place] 8 mitral (valve) [facility] insufficiency / Hospital I34.0(ICD-10) Repository Unknown I27.21 - Secondary [place], Active [place] 8 pulmonary arterial [facility] hypertension / Hospital I27.21(ICD-10) Repository Unknown M79.89 - Other Rigo Valverde Active [place] 9 specified soft tissue [facility] disorders / Hospital M79.89(ICD-10) Repository Unknown N18.6 - End stage Cesar Roberts Active [place] 8 renal disease / [facility] N18.6(ICD-10) Hospital Repository Admitting Dependence on renal Cami [facility] 8 Diagnosis dialysis / System Z99.2(ICD-10) Repository Admitting Hyp chr kidney disease Cami [facility] 8 Diagnosis w stage 5 chr kidney System disease or ESRD / Repository I12.0(ICD-10) Admitting Type 2 diabetes Cami [facility] 8 Diagnosis mellitus w diabetic System chronic kidney disease Repository / E11.22(ICD-10) Admitting Other cervical disc Cami [facility] 8 Diagnosis degeneration, unsp System cervical region / Repository M50.30(ICD-10) Admitting Glomerular disease in Cami [facility] 8 Diagnosis systemic lupus System erythematosus / Repository M32.14(ICD-10) Admitting Allergy status to Crys Cami [facility] 8 Diagnosis sulfonamides status / System Z88.2(ICD-10) Repository Admitting Allergy status to oth Cami [facility] 8 Diagnosis drug/meds/biol subst System status / Z88.8(ICD-10) Repository Admitting Anemia in chronic [facility] 8 Diagnosis kidney disease / System D63.1(ICD-10) Repository Admitting Presence of artificial [facility]i [facility] 8 Diagnosis hip joint, bilateral / System Z96.643(ICD-10) Repository Admitting Gastro-esophageal Cami Lau Active [facility] 8 Diagnosis reflux disease without System esophagitis / Repository K21.9(ICD-10) Admitting Unspecified Cami Lau Active [facility] 8 Diagnosis adrenocortical System insufficiency / Repository E27.40(ICD-10) Admitting Systemic Lupus CABALLEROPB GIFFORD Active [place] [address] diagnosis Erythematosus / University [id number]() [facility] Repository Admitting Fibromyalgia / 566() MEME JEAN Active [place] [address] diagnosis [facility] Repository Unknown R53.81 - Other malaise Vu, Mitchell Chi Active [place] 8 / R53.81(ICD-10) [facility] Hospital Repository Unknown N18.5 - Chronic kidney Rigo Valverde Active [place] 8 disease, stage 5 / [facility] N18.5(ICD-10) Hospital Repository Admitting Hyperkalemia / Cami Lau Active [facility] 8 Diagnosis E87.5(ICD-10) System Repository Admitting Hyperlipidemia, Cami [facility] 8 Diagnosis unspecified / System E78.5(ICD-10) Repository Admitting Decreased white blood Cami Lau Active [facility] 8 Diagnosis cell count, System unspecified / Repository D72.819(ICD-10) Admitting 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[facility] 8 Diagnosis cataplexy / System G47.419(ICD-10) Repository Admitting Compression of vein / Cami Lau Active [facility] 8 Diagnosis I87.1(ICD-10) System Repository Admitting Oth complication of Cami Lau Active [facility] 8 Diagnosis vascular prosth System dev/grft, init / Repository T82.898A(ICD-10) Admitting Other spondylosis, Cami Lau Active [facility] 8 Diagnosis cervical region / System M47.892(ICD-10) Repository Admitting Nutritional anemia, Cami Lau [facility] 8 Diagnosis unspecified / System D53.9(ICD-10) Repository Admitting Noninfective Cami Lau [facility] 8 Diagnosis gastroenteritis and System colitis, unspecified / Repository K52.9(ICD-10) Admitting Resistance to Cami Lau [facility] 8 Diagnosis unspecified System antimicrobial drugs / Repository Z16.30(ICD-10) Admitting Allergy status to Cami Lau [facility] 8 Diagnosis other antibiotic System agents status / Repository Z88.1(ICD-10) Admitting Overweight / Cami Lau [facility] 8 Diagnosis E66.3(ICD-10) System Repository Admitting Body mass index (BMI) Cami Lau [facility] 8 Diagnosis 26.0-26.9, adult / System Z68.26(ICD-10) Repository Unknown R35.0 - Frequency of Marcanthony, Active [place] 8 micturition / Desirae Community R35.0(ICD-10) Hospital Repository Admitting 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 / Repository I82.B21(ICD-10) Admitting Spondylosis w/o [facility] [employer] 8 Diagnosis myelopathy or System radiculopathy, Repository cervical region / M47.812(ICD-10) Admitting Anemia, unspecified / Cami Lau [facility] 8 Diagnosis D64.9(ICD-10) System Repository Admitting Presence of Cami Lau [facility] 8 Diagnosis unspecified artificial System hip joint / Repository Z96.649(ICD-10) Admitting Oth bacterial agents Cami Lau [facility] 8 Diagnosis as the cause of System diseases classd elsr Repository / B96.89(ICD-10) Admitting Resistance to other Cami Lau [facility] 8 Diagnosis specified System antimicrobial drug / Repository Z16.39(ICD-10) Admitting Systemic lupus [place] erythematosus, System unspecified / Repository M32.9(ICD-10) Admitting Acute embolism and Crys [facility] 8 Diagnosis thrombosis of System unspecified subclavian Repository vein / I82.B19(ICD-10) Admitting Type 2 diabetes Crys [facility] 8 Diagnosis mellitus without System complications / Repository E11.9(ICD-10) Admitting Essential (primary) Crys [facility] 8 Diagnosis hypertension / System I10(ICD-10) Repository Unknown M99.03 - Segmental and DosNancy roberson Active [place] 8 somatic dysfunction of [facility].C. [facility] lumbar region / Hospital M99.03(ICD-10) Repository Unknown M99.02 - Segmental and DosNancy roberson Active [place] 8 somatic dysfunction of D.C. [facility] thoracic region / Hospital M99.02(ICD-10) Repository Unknown M99.01 - Segmental and DossiNancy arriaga Active [place] 8 somatic dysfunction of D.C. [facility] cervical region / Hospital M99.01(ICD-10) Repository Final Major depressive Dr. [facility] 8 diagnosis disorder, recurrent, [facility] (discharge) moderate / Lisa Repository F33.1(ICD-10) Unknown M25.522 - Pain in left Chicorelli, Active [place] [facility] elbow / Iris [facility] M25.522(ICD-10) Hospital Repository Unknown M54.9 - Dorsalgia, Nancy Magaña Active [place] [facility] unspecified / D.C. Community M54.9(ICD-10) Hospital Repository Unknown Z01.810 - Encounter Cesar Roberts Active [place] 8 for preprocedural [facility] cardiovascular Hospital examination / Repository Z01.810(ICD-10) Unknown M51.26 - Other DosNancy roberson Active [place] 8 intervertebral disc [facility] displacement, lumbar Hospital region / Repository M51.26(ICD-10) Unknown T82.898A - Other Debbie AHMADI, Active [place] 8 specified complication [facility] vascular prosthetic Hospital devices, implants and Repository grafts, initial encounter / T82.898A(ICD-10) Unknown D64.9 - Anemia, Garcia Marte Active [place] 8 unspecified / Community D64.9(ICD-10) Hospital Repository Unknown D72.819 - Decreased Garcia Marte Active [place] 8 white blood cell Community count, unspecified / Hospital D72.819(ICD-10) Repository Unknown I36.1 - Nonrheumatic Cesar Roberts Active [place] 8 tricuspid (valve) Community insufficiency / Hospital I36.1(ICD-10) Repository Unknown G89.18 - Other acute CeRigo banuelos Active [place] 8 postprocedural pain / Community G89.18(ICD-10) Hospital Repository Unknown E11.9 - Type 2 Vu, Mitchell Chi Active [place] 8 diabetes mellitus Community without complications Hospital / E11.9(ICD-10) Repository Unknown I10 - Essential Vu, Mitchell Chi Active [place] 8 (primary) hypertension Community / I10(ICD-10) Hospital Repository Unknown M32.14 - Glomerular MAURI HERRING Active [place] 8 disease in systemic Community lupus erythematosus / Hospital M32.14(ICD-10) Repository Admitting Neck Pain / 682323() [facility] Active [place] [address] diagnosis [facility] Repository Admitting Hip Pain / 081176() [facility] Active [facility] 8 diagnosis [facility] Repository Admitting Shoulder Pain / [facility] Active [place] [address] diagnosis 379274() [facility] Repository Unknown R19.7 - Diarrhea, Vu, Mitchell Chi Active [place] [facility] unspecified / Community R19.7(ICD-10) Hospital Repository PROCEDURES PROCEDURES No Procedure Records FoundRESULTS RESULTS ABDOMEN SINGLE VIEW Observed: 09/30/2018 Status: F Source: [place] 10:20 AM [facility] REPOSITORY [facility] Imaging Services [address] [place] [address] Abdomen Single View MR#: [id number] Acct: [id number] Name: PAVITHRA PAINTER Rep #: [id number] : 1970 F 48 From: Jnoathan Garcia MD PCP: Mitchell Womack MD, Chi Status: REG CLI Study: Abdomen Single View Date of Exam: 09/30/18 Exam# [id number] Ordering Dr: Mitchell Womack MD STUDY: X-RAY - ABDOMEN/PELVIS REASON FOR EXAM: Female, 48 years old. Diarrhea. TECHNIQUE: Two AP supine views of the abdomen and pelvis. COMPARISON: Comparison is made with prior examination dated August 13, 2018. FINDINGS: Normal visualized lung bases. There is an unremarkable bowel gas pattern. The visualized liver, spleen and kidneys are grossly normal in size and morphology. Normal soft tissue structures. Normal visualized osseous structures. RAD/Abdomen Single View IMPRESSION: Unremarkable examination. Electronically Signed: Jonathan Garcia MD at 10:58 EST Tel [phone], Service support , CC: Mitchell Womack MD Individual Pension Adviser: Signed DISCHARGE SUMMARY Observed: 09/29/2018 Status: F Source: [place] 9:40 AM [facility] REPOSITORY [facility] Medical Records Department [address] [place] [address] Discharge Summary 09/29/18 0937 MR#: [id number] Acct: [id number] Name: PAVITHRA PAINTER Rep #: [id number] : 1970 48 From: Flako Camejo MD PCP: Mitchell Womack MD, Chi Status: ADM IN Location: [place] [address] Discharge Date and Diagnosis Date of Admission: 09/24/18 Date of Discharge: 09/29/18 - Primary Discharge Diagnosis Acute metabolic encephalopathy Acute hypoxic and hypercapnic respiratory failure Persistent hypoglycemia - Secondary Discharge Diagnosis Chronic Problems (Last [...] lupus erythematosus) (Chronic) Hospital Course and Treatment Imaging Results: Clinical Impression(s) from Imaging Studies Chest X-Ray 09/24/18 10:21 IMPRESSION: Prominent appearance of the right paramediastinal soft tissues although this may represent vascular ectasia lymphadenopathy thyroid enlargement could have this appearance and should be excluded. Recommend consideration for follow up CT scan of the chest to clarify. Mild cardiomegaly. Electronically Signed: Carolina Becker MD at 10:56 EST Tel , Service support , Brain CT 09/24/18 10:22 IMPRESSION: Normal unenhanced CT scan of the brain. Electronically Signed: Carolina Becker MD at 10:54 EST Tel , Service support , Chest X-Ray 09/24/18 14:51 IMPRESSION: Tubes are in adequate position. Cardiomegaly. No evidence for acute cardiopulmonary pathology. 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 Patient had apparently missed dialysis. Patient was found to be uremic on admission in addition she was noted to have acute hypoxic And hypoxic respiratory failure resulting in patient being intubated and admitted to the intensive care unit 1. Acute metabolic encephalopathy multifactorial including uremia from recent dialysis, hypoglycemia as well as hypoxia and hypercapnia. Patient encephalopathy resolved 2. Acute hypercapnic and hypoxic respiratory failure as a result of fluid overload patient was intubated admitted to the intensive care unit with consultation placed to pulmonary/intensive care vent management deferred. Patient was weaned off the vent on 09/26/2018. 3. Hyperkalemia in the context of ESRD being treated with dialysis 4. Type 1 diabetes with complication including hypoglycemia patient was managed with D10 patient still remains hypoglycemic 5. Persistent hypoglycemia ordered C-peptide as well as pro- insulin as part of her evaluation results were pending at the time of discharge patient was instructed to follow-up with Dr. WOMACK her primary care physician for results within 3-5 days 6. SLE with complications including lupus nephritis patient is on prednisone, hydroxychloroquine and cevimeline 7. End-stage renal disease currently on hemodialysis 8. Dyslipidemia-patient is on statin therapy, continued at home dose 9. Hypertension: BP stable, continue with home meds 10. Anemia secondary to anemia of chronic disease as well as chronic kidney disease H AND H stable 11. Sjogren's syndrome 12. DVT prophylaxis: Subcu heparin. Objective: GENERAL: Not in acute distress HEENT: Atraumatic; EYES; conjunctiva edema NECK; supple, normal thyroid, RESPIRATORY: Diminished to auscultation bilaterally, CARDIOVASCULAR: Regular S1 S2, no audible murmurs GI: soft, non-tender, normoactive bowel sounds, : No Renal angle tenderness; EXTREMITIES: No edema, no clubbing, no cyanosis. NEURO: No lateralizing signs SKIN: No Rash PSYCH; flat affect - Physical Exam Vital Signs Temp Pulse Resp BP Pulse Ox 98.9 F 93 18 146/82 H 100 09/29/18 08:45 09/29/18 09:00 09/29/18 08:45 09/29/18 08:45 09/29/18 08:45 Oxygen Flow Rate (L/min) 2 Oxygen Delivery Method Room Air Weight: 69.1 kg Body Mass Index (BMI) 27.8 Finger Stick Blood Glucose 175 Intake and Output for Last 24 Hours Intake Total 1247 / 1247 1116 / 1116 1265 / 1265 Output Total 990 / 990 2200 / 2200 Balance 257 / 257 -1084 / -1084 1265 / 1265 Laboratory Tests Past 24 Hrs POC Glucose POC Glucose 93 91 101 POC Glucose 171 H 84 112 H Discharge Diet: No Restrictions Discharge Activity: Return to Normal Activity Home Medications: Medications to take at Discharge Duloxetine Hcl [Cymbalta] 120 mg PO DAILY 10/01/16 Hydroxychloroquine [Plaquenil] 200 mg PO BIDCM 10/01/16 Atorvastatin Calcium [Lipitor] 20 mg PO QHS 01/20/18 Pregabalin [Lyrica] 75 mg PO BID 08/12/18 Sevelamer Carbonate [Renvela] 1,600 mg PO TIDCM 08/12/18 Dextroamphetamine Sulfate [Dexedrine] 10 mg PO DAILY 08/13/18 Dextroamphetamine/Amphetamine [Adderall 15 mg Tablet] 15 mg PO DINNER 08/13/18 Dextroamphetamine/Amphetamine [Adderall 15 mg Tablet] 30 mg PO BREAKFAST 08/13/18 Ergocalciferol (Vitamin D2) [Drisdol] 50,000 unit PO QMONTH 08/15/18 Baclofen 20 mg PO QHS 09/09/18 Cevimeline HCl 30 mg PO BID 09/09/18 Cholestyramine (with Sugar) [Questran Packet] 4 gm PO BID 09/09/18 Cyclosporine [Restasis Multidose] 1 drop OP DAILY 09/09/18 Dextran 70/Hypromellose [Nature's Tears Eye Drops] 1 drop OP QHS 09/09/18 Famotidine 10 mg PO DAILY 09/09/18 Fluticasone 0.05% [Flonase Nasal Calera] 1 spray NASAL BID 09/09/18 Folic Acid/Vit B Complex and C [Renal-Lobo Tablet] 0.8 mg PO DAILY 09/09/18 Metoprolol Tartrate [Lopressor (beta pippa)] 25 mg PO BID 09/09/18 Mirtazapine 7.5 mg PO QHS 09/09/18 Prednisone 5 mg PO DAILY 09/09/18 Sucroferric Oxyhydroxide [Velphoro] 500 mg PO TIDCM 09/09/18 proMETHazine suppository [Phenergan] 12.5 mg RECTAL Q4H PRN PRN #20 suppos. 09/29/18 Following Prescrptions Were Given to Patient: proMETHazine suppository [Phenergan] 12.5 mg RECTAL Q4H PRN PRN #20 suppos. PRN Reason: Nausea/Vomiting Primary Care Physician: Mitchell Womack Chi, MD [Primary Care Provider] - Please follow up with your Primary Care Physician in: Within 5-7 days to follow-up on results of C-peptide and proinsulin levels Please Follow Up With: Arline Ambriz DO When: For dialysis Disposition: Home Minutes spent on discharge:: 35 Patient Condition:: Stable Medical Necessity - Tobacco Use Smoking Status: Unknown if ever smoked Meaningful Use Info Meaningful Use Diagnoses (Choose all that apply): None applicable Code Visit Inpatient E AND M: 91508 Disch Hosp 09/29/18 0940 <Electronically signed by Flako Camejo MD> Date Flako Camejo MD Cosigner Signature (if applicable): Date CC: Flako Camejo MD; Mitchell Womack MD Signed DISCHARGE INSTRUCTION Observed: 09/29/2018 Status: F Source: [place] 9:37 AM [facility] REPOSITORY [facility] Medical Records Department [address] [place] [address] Instructions for Home/Discharge Instructions 09/29/18 0935 MR#: [id number] Acct: [id number] Name: MADINAPAVITHRA Marcos Rep #: [id number] : 1970 48 From: Flako Camejo MD PCP: Vu GARCIA,Mitchell Yadav Status: ADM IN You will use the following diet at home:: Regular Discharge Activity: Return to Normal Activity Allergies/Adverse Reactions: Allergies NEGRO Inhibitors Allergy (Verified 09/24/18 11:36) Angioedema adhesive Allergy (Verified 09/26/18 15:50) Rash diphenhydramine [From Benadryl] Allergy (Verified 09/24/18 11:36) Unknown lisinopril Allergy (Verified 09/24/18 11:36) Angioedema Sulfa (Sulfonamide Antibiotics) Allergy (Verified 09/24/18 11:36) Rash sulfamethoxazole [From Bactrim] Allergy (Verified 09/24/18 11:36) Rash trimethoprim [From Bactrim] Allergy (Verified 09/24/18 11:36) Rash Angioderm Adverse Reaction (Unknown, Uncoded 09/24/18 11:36) Unknown Medications to take at Discharge Duloxetine Hcl [Cymbalta] 120 mg PO DAILY 10/01/16 Hydroxychloroquine [Plaquenil] 200 mg PO BIDCM 10/01/16 Atorvastatin Calcium [Lipitor] 20 mg PO QHS 01/20/18 Pregabalin [Lyrica] 75 mg PO BID 08/12/18 Sevelamer Carbonate [Renvela] 1,600 mg PO TIDCM 08/12/18 Dextroamphetamine Sulfate [Dexedrine] 10 mg PO DAILY 08/13/18 Dextroamphetamine/Amphetamine [Adderall 15 mg Tablet] 15 mg PO DINNER 08/13/18 Dextroamphetamine/Amphetamine [Adderall 15 mg Tablet] 30 mg PO BREAKFAST 08/13/18 Ergocalciferol (Vitamin D2) [Drisdol] 50,000 unit PO QMONTH 08/15/18 Baclofen 20 mg PO QHS 09/09/18 Cevimeline HCl 30 mg PO BID 09/09/18 Cholestyramine (with Sugar) [Questran Packet] 4 gm PO BID 09/09/18 Cyclosporine [Restasis Multidose] 1 drop OP DAILY 09/09/18 Dextran 70/Hypromellose [Nature's Tears Eye Drops] 1 drop OP QHS 09/09/18 Famotidine 10 mg PO DAILY 09/09/18 Fluticasone 0.05% [Flonase Nasal Calera] 1 spray NASAL BID 09/09/18 Folic Acid/Vit B Complex and C [Renal-Lobo Tablet] 0.8 mg PO DAILY 09/09/18 Metoprolol Tartrate [Lopressor (beta pippa)] 25 mg PO BID 09/09/18 Mirtazapine 7.5 mg PO QHS 09/09/18 Prednisone 5 mg PO DAILY 09/09/18 Sucroferric Oxyhydroxide [Velphoro] 500 mg PO TIDCM 09/09/18 proMETHazine suppository [Phenergan] 12.5 mg RECTAL Q4H PRN PRN #20 suppos. 09/29/18 The following prescriptions were given: proMETHazine suppository [Phenergan] 12.5 mg RECTAL Q4H PRN PRN #20 suppos. PRN Reason: Nausea/Vomiting Primary Care Physician: Mitchell Womack Chi, MD [Primary Care Provider] - Please follow up with your Primary Care Physician in: Within 5-7 days to follow-up on results of C-peptide and proinsulin levels Test Results: Test results from this visit will be discussed in further detail at your follow-up appointment, if applicable. Please Follow Up With: Arline Ambriz DO When: For dialysis Proposed Discharge Date: 09/29/18 09/29/1837 <Electronically signed by lFako Camejo MD> Date Flako Camejo MD CC: Ross Esparza MD; Arline Ambriz DO; Mitchell Womack MD Signed BEDSIDE GLUCOSE Collected: 09/29/2018 Status: F Source: [place] 6:37 AM [facility] REPOSITORY TYPE CODE TESTS RESULT OUT OF RANGE REFERENCE UNITS LAB L501.080 70-110 mg/dL Normal BEDSIDE GLU 93 Result Comment: MANAGEMENT OF PATIENT CARE PER NURSING PROTOCOL Performed By: #### L501.080 #### [facility] Laboratory Point of Care [facility] [place] [address] BASIC METABOLIC Collected: 09/29/2018 Status: F Source: [place] PROFILE (BMP) 5:30 AM [facility] REPOSITORY TYPE CODE TESTS RESULT OUT OF RANGE REFERENCE UNITS LAB L501.0100 74-106 mg/dL Normal GLU 85 Result Comment: Please note revised GLUCOSE reference range effective 2017. LAB L501.1000 7-18 mg/dL High BUN 32 LAB L501.1100 0.55-1.02 mg/dL High CREAT,SERUM 5.43 Result Comment: The validity of the calculated GFR AND GFRAA in patients over 70 years has not been determined. Clinical correlation is essential. LAB L501.1110 >60 mL/min Low EST GFR 9 Result Comment: Non- GFR Calc LAB L501.1115 >60 mL/min Low EST GFR - AA 11 Result Comment: GFR Calc LAB L501.1255 ml/min Normal Estimated CRCL 9.77 LAB L501.1300 10-20 RATIO Low BUN/CRE 5.9 LAB L501.2200 8.5-10. mg/dL Low 1 CA 8.3 LAB L501.5300 136-145 mmol/L Low NA 132 LAB L501.5600 3.5-5.1 mmol/L Normal K 3.9 LAB L501.5900 98-107 mmol/L Low CL 94 LAB L501.6100 21.0-32 mmol/L Normal .0 CO2 26.0 LAB L501.6200 5-15 Normal GAP 12 Performed By: #### L500.2500 #### [facility] [address] [place], [address] BEDSIDE GLUCOSE Collected: 09/29/2018 Status: F Source: [place] 3:25 AM [facility] REPOSITORY TYPE CODE TESTS RESULT OUT OF RANGE REFERENCE UNITS LAB L501.080 70-110 mg/dL Normal BEDSIDE GLU 91 Result Comment: MANAGEMENT OF PATIENT CARE PER NURSING PROTOCOL Performed By: #### L501.080 #### [facility] Point of Care [address] [place] [address] BEDSIDE GLUCOSE Collected: 09/28/2018 Status: F Source: PAMELA 9:41 PM [facility] REPOSITORY TYPE CODE TESTS RESULT OUT OF RANGE REFERENCE UNITS LAB L501.080 70-110 mg/dL Normal BEDSIDE GLU 101 Result Comment: MANAGEMENT OF PATIENT CARE PER NURSING PROTOCOL Performed By: #### L501.080 #### [facility] Point of Care [address] [place] [address] BEDSIDE GLUCOSE Collected: 09/28/2018 Status: F Source: PAMELA 3:41 PM [facility] REPOSITORY TYPE CODE TESTS RESULT OUT OF REFERENCE UNITS RANGE LAB L501.080 70-110 mg/dL High BEDSIDE GLU 171 Result Comment: MANAGEMENT OF PATIENT CARE PER NURSING PROTOCOL Performed By: #### L501.080 #### [facility] Point of Care [address] [place] [address] CONSULTATION Observed: 09/28/2018 Status: F Source: [place] 2:02 PM [facility] REPOSITORY [facility] Medical Records Department [address] [place] [address] Consultation 09/24/18 1810 MR#: [id number] Acct: [id number] Name: PAVITHRA PAINTER Rep #: [id number] : 1970 48 From: Arline Ambriz DO PCP: Mitchell Womack MD, Chi Status: ADM IN Y Location: [facility] RO111-8 Consultation - Renal 09/24/18 PCP/ Referring MD: Requesting physician: Dr Finch Primary care physician: Mitchell Womack MD Reason for Consultation:: ESRD renal mgmt, hyperkalemia - History of Present Illness History of Present Illness: The patient is a 48 year old F well known to me with ESRD due to diabetes, lupus on hemodialysis MWF s/p 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 She has been taken off all narcotics but continues to use benzodiazepines. Patient was dropped off by her brother. According to ED documentation, patient missed dialysis yesterday and brother found her confused and so she was brought in. She was subsequently intubated, unresponsive while receiving dialysis. Patient was unable to give any history at time of presentation to ED due to increased somnolence. She has been hospitalized for similar event recently due to hypoglycemic episode. She has been taken off all diabetic medications. She has a history of narcolepsy on adderall. Potassium on admit was elevated at 6.4. CT head unremarkable for acute findings. - Allergies Allergies: Allergies NEGRO Inhibitors Allergy (Verified 09/24/18 11:36) Angioedema diphenhydramine [From Benadryl] Allergy (Verified 09/24/18 11:36) Unknown lisinopril Allergy (Verified 09/24/18 11:36) Angioedema Sulfa (Sulfonamide Antibiotics) Allergy (Verified 09/24/18 11:36) Rash sulfamethoxazole [From Bactrim] Allergy (Verified 09/24/18 11:36) Rash trimethoprim [From Bactrim] Allergy (Verified 09/24/18 11:36) Rash Angioderm Adverse Reaction (Unknown, Uncoded 09/24/18 11:36) Unknown - Current Medications Current Medications: Current Medications Artificial Tears (Tears Naturale, Artificial Tears) 1 drop OPHTHALMIC QHS [facility] Artificial Tears (Tears Naturale, Artificial Tears) 0 drop OPHTHALMIC Q2H PRN PRN Reason: DRY EYES Atorvastatin Calcium (Lipitor) 20 mg PO QHS [facility] Cholestyramine Resin (Questran 4gm Packet) 4 gm PO BID [facility] Dextrose (D50w Syringe) 0 gm IV X1 PRN; Protocol PRN Reason: Hypoglycemia Duloxetine HCl (Cymbalta) 120 mg PO DAILY [facility] Ergocalciferol (Vitamin D) 50,000 unit PO QMONTH [facility] Famotidine (Pepcid) 10 mg PO DAILY [facility] Fluticasone Propionate (Flonase Nasal Calera) 1 spray NASAL BID [facility] Glucagon () 1 mg IM .X1 PRN PRN Reason: Hypoglycemia Heparin Sodium (Porcine) (Heparin Na) 5,000 unit SC Q8 [facility] Last Admin: 09/24/18 17:05 Dose: 5,000 unit Hydralazine HCl (Apresoline Iv) 10 mg IV Q4H PRN PRN PRN Reason: BLOOD PRESSURE ELEVATION [facility]loroquine [facility] ([facility]aquenil) [facility] Dextrose (Dextrose 10%-Water) 250 mls @ 40 mls/hr IV .Q6H15M [facility] Last Admin: 09/24/18 16:09 Dose: 40 mls/hr Propofol (Diprivan) 1,000 mg in 100 mls @ 2.279 mls/hr CONT INF .Q12H [facility] Last Admin: 09/24/18 15:00 Dose: 2.279 mls/hr Sodium Chloride () 250 mls @ 15 mls/hr IV .G13A09H PRN PRN Reason: SALINE FLUSH Insulin Human Lispro (Humalog Kwikpen (Bkc)) 0 unit SQ Q6 [facility]; Protocol Magnesium Hydroxide (Milk Of Magnesia) 30 ml PO DAILY PRN PRN PRN Reason: Constipation Metoprolol Tartrate (Lopressor (Beta Pippa)) 25 mg PO BID [facility] Mirtazapine (Remeron) 7.5 mg PO QHS [facility] Multivit/Ca Carb/B Cmplx/FA/Prenat (Nephrocaps, Renaphro) 1 capsule PO DAILY@0800 [facility] Non-Formulary Medication (Cevimeline Hcl [Cevimeline Hcl]) 30 mg PO BID [facility] Non-Formulary Medication (Dextroamphetamine Sulfate [Dexedrine]) 10 mg PO DAILY [facility] Non-Formulary Medication (Dextroamphetamine/Amphetamine [Adderall 15 Mg Tablet]) 15 mg PO DINNER [facility] Non-Formulary Medication (Dextroamphetamine/Amphetamine [Adderall 15 Mg Tablet]) 30 mg PO BREAKFAST [facility] Non-Formulary Medication (Sucroferric Oxyhydroxide) 500 mg PO TIDCM [facility] Sevelamer Carbonate (Renvela) 1,600 mg PO TIDCM [facility] Last Admin: 09/24/18 17:17 Dose: Not Given Sodium Chloride () 5 - 15 ml IV UD PRN PRN Reason: SALINE FLUSH - Past Medical History Past Medical History (Chronic Problems): Chronic Problems (Last Reviewed 08/14/18 @ 10:39 [...] Past Surgical History Surgical History: - - failed AVF left arm, AVF right arm - Social History Marital Status: Single Smoking Status: Never smoker - Family History Maternal Family History: Family [...] Sibling Family History: Family History (Last Reviewed 11/30/18 @ 18:36 by Cami Sanchez DO) Mother Hypertension Kidney disease ALS (amyotrophic lateral sclerosis) Father Heart disease Hypertension Kidney disease Diabetes History Items: Diabetes Review of Systems Unable to obtain accurate/complete ROS d/t: pt sedate, on vent. Seen on dialysis. - Physical Exam General: - - sedate on vent, seen on dialysis Lungs: Clear to auscultation, - - on vent Cardiovascular: Regular rate Abdomen: Bowel Sounds Present, Soft, Non Tender, Non-Distended Extremities: Edema - mild upper extrem edema, R>L chronic from central stenosis, - - CROEY AVF with weak thrill, +bruit Skin: No rashes Neurological: - - unable to assess Psych/Mental Status: - - sedate Vital Signs Temp Pulse Resp BP Pulse Ox 97.6 F L 95 15 107/71 100 09/24/18 17:00 09/24/18 17:30 09/24/18 17:30 09/24/18 17:00 09/24/18 17:30 Oxygen Flow Rate (L/min) 2 Oxygen Delivery Method Mechanical Ventilator Weight: 67 kg Body Mass Index (BMI) 27.8 Finger Stick Blood Glucose 175 Laboratory Tests Past 24 Hrs WBC 7.4 RBC 3.74 L Hgb 11.9 L Hct 38.7 WBC RBC Hgb Hct MCV MCH MCHC RDW RDW Differential Plt Count POC Glucose POC Glucose 111 H 179 H 71 POC Glucose 175 H 70 Clinical Impression(s) from Imaging Studies Chest X-Ray 09/24/18 10:21 IMPRESSION: Prominent appearance of the right paramediastinal soft tissues although this may represent vascular ectasia lymphadenopathy thyroid enlargement could have this appearance and should be excluded. Recommend consideration for follow up CT scan of the chest to clarify. Mild cardiomegaly. Electronically Signed: Carolina Becker MD at 10:56 EST Tel , Service support , Brain CT 09/24/18 10:22 IMPRESSION: Normal unenhanced CT scan of the brain. Electronically Signed: Carolina Becker MD at 10:54 EST Tel , Service support , Assessment/Plan All Active Problems (Last Reviewed 08/14/18 @ 10:39 by Cesar Sheth MD) Extremity edema (Acute) Encephalopathy acute (Acute) 1. ESRD HD MWF. Dialysis today for missed tx yesterday. 2. Hyperkalemia correct with dialysis 3. acute metabolic encephalopathy s/p intubation 4. HTN 5. DM2 6. SLE 7. Narcolepsy 8. Chronic pain 9. Hx cdiff colitis 10. Hx serratia incision infection of Rt arm AVF 11. 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 09/28/18 1402 <Electronically signed by Arline Ambriz DO> Date Arline Ambriz DO Cosigner Signature (if applicable): Date CC: Ross Esparza MD; Arline Ambriz DO; Flako Camejo MD; Mitchell Womack MD Signed BEDSIDE GLUCOSE Collected: 09/28/2018 Status: F Source: PAMELA 12:28 PM [facility] REPOSITORY TYPE CODE TESTS RESULT OUT OF RANGE REFERENCE UNITS LAB L501.080 70-110 mg/dL Normal BEDSIDE GLU 84 Result Comment: MANAGEMENT OF PATIENT CARE PER NURSING PROTOCOL Performed By: #### L501.080 #### [facility] Laboratory Point of Care [address] [place] [address] C-PEPTIDE Collected: 09/28/2018 Status: F Source: PAMELA 10:30 AM [facility] REPOSITORY Order Comment: UTO X 2 PHLEBS FLOWER CUTTER WILL PULL OFF CATHETER BEFORE HOOKING UP TO DIALYSIS. TYPE CODE TESTS RESULT OUT OF REFERENCE UNITS RANGE LAB L3100.7750 1.1-4.4 ng/mL C High PEPTIDE 01146 23.1 Result Comment: C-Peptide reference interval is for fasting patients. Performed at: [address] [id number] Site Technician: Yannick Means PhD, Phone: [phone] Performed By: #### L3100.7750 #### [facility] (refer to report for specific site) refer to report for address and phone number MISCELLANEOUS LAB Collected: 09/28/2018 Status: F Source: PAMELA PROCEDURE 10:30 AM [facility] REPOSITORY Order Comment: UTO X 2 PHLEBS FLOWER CUTTER WILL PULL OFF CATHETER BEFORE HOOKING UP TO DIALYSIS. Comments: PROINSULIN TYPE CODE TESTS RESULT OUT OF RANGE REFERENCE UNITS LAB L801.1541 Normal [facility] LAB TEST Result Comment: TEST RESULT LIMITS Proinsulin 16.0 High pmol/L 0.0 - 10.0 TESTING PERFORMED AT [facility]. ORIGINAL REPORT ON FILE IN LAB CONTAINS ADDITIONAL TEST SITE INFORMATION. Performed By: #### L801.1541 #### [facility] [address] [place], [place], [address] BEDSIDE GLUCOSE Collected: 09/28/2018 Status: F Source: PAMELA 8:09 AM [facility] REPOSITORY TYPE CODE TESTS RESULT OUT OF REFERENCE UNITS RANGE LAB L501.080 70-110 mg/dL High BEDSIDE GLU 112 Result Comment: MANAGEMENT OF PATIENT CARE PER NURSING PROTOCOL Performed By: #### L501.080 #### [facility] Point of Care [address] [place], [place] [address] BEDSIDE GLUCOSE Collected: 09/28/2018 Status: F Source: P[place] 6:26 AM [facility] REPOSITORY TYPE CODE TESTS RESULT OUT OF RANGE REFERENCE UNITS LAB L501.080 70-110 mg/dL Normal BEDSIDE GLU 88 Result Comment: MANAGEMENT OF PATIENT CARE PER NURSING PROTOCOL Performed By: #### L501.080 #### [facility] Point of Care [address] [place], [place] [address] CBC-COMPLETE BLOOD CNT Collected: 09/28/2018 Status: F Source: PAMELA NO DIFF 5:45 AM [facility] REPOSITORY TYPE CODE TESTS RESULT OUT OF RANGE REFERENCE UNITS LAB L100.1000 4.4-11.0 K/mm3 Normal WBC 9.3 LAB L100.1200 4.2-5.4 M/mm3 Low RBC 3.58 LAB L100.1300 12.0-15.0 g/dl Low HGB 11.1 LAB L100.1400 37-47 % Low HCT 34.7 LAB L100.1500 81-99 fL Normal MCV 96.9 LAB L100.1600 27.0-32.0 pg Normal MCH 31.0 LAB L100.1700 32-36 g/gl Normal MCHC 32.0 LAB L100.1810 11.6-14.6 % High RDW CV 16.0 LAB L100.1820 35.1-43.9 fl High RDW SD 56.4 LAB L100.1900 150-450 K/mm3 Normal PLT 197 LAB L100.2000 6.2-12.0 fl Normal MPV 10.4 Performed By: #### L100.0500 #### [facility] [address] [place], [place], [address] BASIC METABOLIC Collected: 09/28/2018 Status: F Source: PAMELA PROFILE (BMP) 5:45 AM [facility] REPOSITORY TYPE CODE TESTS RESULT OUT OF RANGE REFERENCE UNITS LAB L501.0100 74-106 mg/dL Normal GLU 88 Result Comment: Please note revised GLUCOSE reference range effective 2017. LAB L501.1000 7-18 mg/dL High BUN 54 LAB L501.1100 0.55-1.02 mg/dL High alert CREAT,SERUM 8.06 Result Comment: Critical Result(s) Called at: 06:37:09 09/28/2018 by: Marie Adams The validity of the calculated GFR AND GFRAA in patients over 70 years has not been determined. Clinical correlation is essential. LAB L501.1110 >60 mL/min Low EST GFR 6 Result Comment: Non- GFR Calc LAB L501.1115 >60 mL/min Low EST GFR - AA 7 Result Comment: GFR Calc LAB L501.1255 ml/min Normal Estimated CRCL 6.58 LAB L501.1300 10-20 RATIO Low BUN/CRE 6.7 LAB L501.2200 8.5-10. mg/dL Normal 1 CA 8.6 LAB L501.5300 136-145 mmol/L Low NA 127 LAB L501.5600 3.5-5.1 mmol/L Normal K 4.8 LAB L501.5900 98-107 mmol/L Low CL 92 LAB L501.6100 21.0-32 mmol/L Normal .0 CO2 22.0 LAB L501.6200 5-15 Normal GAP 13 Performed By: #### L500.2500 #### [facility] [address] [place], [address] BEDSIDE GLUCOSE Collected: 09/28/2018 Status: F Source: PAMELA 4:12 AM [facility] REPOSITORY TYPE CODE TESTS RESULT OUT OF RANGE REFERENCE UNITS LAB L501.080 70-110 mg/dL Normal BEDSIDE GLU 93 Result Comment: MANAGEMENT OF PATIENT CARE PER NURSING PROTOCOL Performed By: #### L501.080 #### [facility] Point of Care [address] [place] [address] BEDSIDE GLUCOSE Collected: 09/28/2018 Status: F Source: PAMELA 2:08 AM [facility] REPOSITORY TYPE CODE TESTS RESULT OUT OF RANGE REFERENCE UNITS LAB L501.080 70-110 mg/dL Normal BEDSIDE GLU 87 Result Comment: MANAGEMENT OF PATIENT CARE PER NURSING PROTOCOL Performed By: #### L501.080 #### [facility] Point of Care [address] [place] [address] BEDSIDE GLUCOSE Collected: 09/27/2018 Status: F Source: PAMELA 9:43 PM [facility] REPOSITORY TYPE CODE TESTS RESULT OUT OF RANGE REFERENCE UNITS LAB L501.080 70-110 mg/dL Normal BEDSIDE GLU 101 Result Comment: MANAGEMENT OF PATIENT CARE PER NURSING PROTOCOL Performed By: #### L501.080 #### [facility] Point of Care [address] [place] [address] 12 LEAD ELECTROCARDIOGRAM Observed: 09/27/2018 Status: F Source: PAMELA 4:40 PM [facility] REPOSITORY [facility] Cardiovascular Services [address] [place] [address] 12 Lead EKG 09/24/18 1013 MR#: [id number] Acct: [id number] Name: PAVITHRA PAINTER Rep #: [id number] : 1970 48 From: Mohit Devlin MD Attending Dr: Flako Camejo MD Status: ADM IN Ordering Dr: Apolinar Kyle MD Date: 09/24/18 Location: [facility] Sex: F A Admitted: 09/24/18 Test Reason : Blood Pressure : / mmHG Vent. Rate : 080 BPM Atrial Rate : 080 BPM P-R Int : 150 ms QRS Dur : 082 ms QT Int : 416 ms P-R-T Axes : 062 046 094 degrees QTc Int : 479 ms Normal sinus rhythm Normal ECG Confirmed by GARO GARCIA, MOHIT ([id number]), senior editor CESAR SIMEON ([id number]) on 09/27/2018 4:40:44 PM Referred By: Mitchell Womack Confirmed By:MOHIT DEVLIN MD 09/27/18 1640 Date Mohit Devlin MD CC: MD Alem Kyle; Flako Camejo MD; Mitchell Womack MD Signed BEDSIDE GLUCOSE Collected: 09/27/2018 Status: F Source: PAMELA 4:35 PM [facility] REPOSITORY TYPE CODE TESTS RESULT OUT OF RANGE REFERENCE UNITS LAB L501.080 70-110 mg/dL Normal BEDSIDE GLU 108 Result Comment: MANAGEMENT OF PATIENT CARE PER NURSING PROTOCOL Performed By: #### L501.080 #### [facility] Point of Care [address] [place] [address] BEDSIDE GLUCOSE Collected: 09/27/2018 Status: F Source: PAMELA 11:27 AM [facility] REPOSITORY TYPE CODE TESTS RESULT OUT OF REFERENCE UNITS RANGE LAB L501.080 70-110 mg/dL High BEDSIDE GLU 113 Result Comment: MANAGEMENT OF PATIENT CARE PER NURSING PROTOCOL Performed By: #### L501.080 #### [facility] Point of Care [address] [place] [address] BEDSIDE GLUCOSE Collected: 09/27/2018 Status: F Source: PAMELA 8:18 AM [facility] REPOSITORY TYPE CODE TESTS RESULT OUT OF RANGE REFERENCE UNITS LAB L501.080 70-110 mg/dL Normal BEDSIDE GLU 105 Result Comment: MANAGEMENT OF PATIENT CARE PER NURSING PROTOCOL Performed By: #### L501.080 #### [facility] Point of Care [address] [place] [address] BEDSIDE GLUCOSE Collected: 09/27/2018 Status: F Source: PAMELA 6:26 AM [facility] REPOSITORY TYPE CODE TESTS RESULT OUT OF RANGE REFERENCE UNITS LAB L501.080 70-110 mg/dL Normal BEDSIDE GLU 83 Result Comment: MANAGEMENT OF PATIENT CARE PER NURSING PROTOCOL Performed By: #### L501.080 #### [facility] Point of Care [address] [place] [address] CBC-COMPLETE BLOOD CNT Collected: 09/27/2018 Status: F Source: PAMELA NO DIFF 4:40 AM [facility] REPOSITORY TYPE CODE TESTS RESULT OUT OF RANGE REFERENCE UNITS LAB L100.1000 4.4-11.0 K/mm3 Normal WBC 9.2 LAB L100.1200 4.2-5.4 M/mm3 Low RBC 3.55 LAB L100.1300 12.0-15.0 g/dl Low HGB 11.2 LAB L100.1400 37-47 % Low HCT 36.1 LAB L100.1500 81-99 fL High MCV 101.7 LAB L100.1600 27.0-32.0 pg Normal MCH 31.5 LAB L100.1700 32-36 g/gl Low MCHC 31.0 LAB L100.1810 11.6-14.6 % High RDW CV 16.3 LAB L100.1820 35.1-43.9 fl High RDW SD 60.3 LAB L100.1900 150-450 K/mm3 Low PLT 108 LAB L100.2000 6.2-12.0 fl Normal MPV 10.1 Performed By: #### L100.0500 #### [facility] [address] [place], [place], [address] BASIC METABOLIC Collected: 09/27/2018 Status: F Source: PAMELA PROFILE (BMP) 4:40 AM [facility] REPOSITORY TYPE CODE TESTS RESULT OUT OF RANGE REFERENCE UNITS LAB L501.0100 74-106 mg/dL High GLU 149 Result Comment: Fasting Glucose result greater than or equal to 126 mg/dL suggests DIABETES MELLITUS per A.D.A. criteria. Please note revised GLUCOSE reference range effective 2017. LAB L501.1000 7-18 mg/dL High BUN 33 LAB L501.1100 0.55-1.02 mg/dL High CREAT,SERUM 6.32 Result Comment: The validity of the calculated GFR AND GFRAA in patients over 70 years has not been determined. Clinical correlation is essential. LAB L501.1110 >60 mL/min Low EST GFR 8 Result Comment: Non- GFR Calc LAB L501.1115 >60 mL/min Low EST GFR - AA 9 Result Comment: GFR Calc LAB L501.1255 ml/min Normal Estimated CRCL 8.39 LAB L501.1300 10-20 RATIO Low BUN/CRE 5.2 LAB L501.2200 8.5-10. mg/dL Normal 1 CA 8.5 LAB L501.5300 136-145 mmol/L Low NA 127 LAB L501.5600 3.5-5.1 mmol/L Normal K 4.3 LAB L501.5900 98-107 mmol/L Low CL 92 LAB L501.6100 21.0-32 mmol/L Normal .0 CO2 21.0 LAB L501.6200 5-15 Normal GAP 14 Performed By: #### L500.2500, L501.5200 #### [facility] [address] [place], [place], [address] MAGNESIUM Collected: 09/27/2018 Status: F Source: PAMELA 4:40 AM [facility] REPOSITORY TYPE CODE TESTS RESULT OUT OF RANGE REFERENCE UNITS LAB L501.5200 1.6-2.6 mg/dL Normal MG 2.6 Performed By: #### L500.2500, L501.5200 #### [facility] [address] [place], [address] BEDSIDE GLUCOSE Collected: 09/26/2018 Status: F Source: PAMELA 9:17 PM [facility] REPOSITORY TYPE CODE TESTS RESULT OUT OF REFERENCE UNITS RANGE LAB L501.080 70-110 mg/dL High BEDSIDE GLU 112 Result Comment: MANAGEMENT OF PATIENT CARE PER NURSING PROTOCOL Performed By: #### L501.080 #### [facility] Point of Care [address] [place] [address] BEDSIDE GLUCOSE Collected: 09/26/2018 Status: F Source: PAMELA 4:34 PM [facility] REPOSITORY TYPE CODE TESTS RESULT OUT OF REFERENCE UNITS RANGE LAB L501.080 70-110 mg/dL High BEDSIDE GLU 120 Result Comment: MANAGEMENT OF PATIENT CARE PER NURSING PROTOCOL Performed By: #### L501.080 #### [facility] Point of Care [address] [place] [address] BEDSIDE GLUCOSE Collected: 09/26/2018 Status: F Source: PAMELA 2:43 PM [facility] REPOSITORY TYPE CODE TESTS RESULT OUT OF REFERENCE UNITS RANGE LAB L501.080 70-110 mg/dL High BEDSIDE GLU 228 Result Comment: MANAGEMENT OF PATIENT CARE PER NURSING PROTOCOL Performed By: #### L501.080 #### [facility] Point of Care [address] [place] [address] BEDSIDE GLUCOSE Collected: 09/26/2018 Status: F Source: PAMELA 11:39 AM [facility] REPOSITORY TYPE CODE TESTS RESULT OUT OF REFERENCE UNITS RANGE LAB L501.080 70-110 mg/dL High BEDSIDE GLU 111 Result Comment: Dr Mccray Followed MANAGEMENT OF PATIENT CARE PER NURSING PROTOCOL Performed By: #### L501.080 #### [facility] Point of Care [address] [place] [address] CONSULTATION Observed: 09/26/2018 Status: F Source: PAMELA 6:25 AM [facility] REPOSITORY [facility] Medical Records Department [address] [place] [address] Consultation 09/25/1813 MR#: [id number] Acct: [id number] Name: PAVITHRA PAINTER Rep #: [id number] : 1970 48 From: Ross Esparza MD PCP: Mitchell Womack MD, Chi Status: ADM IN Y Location: ICU ICU03-1 Problem List (1) Extremity edema Status: Acute (2) Encephalopathy acute Status: Acute (3) Nonrheumatic mitral (valve) insufficiency Status: Chronic (4) Secondary pulmonary arterial hypertension Status: Chronic (5) Non-rheumatic tricuspid valve insufficiency Status: Chronic (6) End stage renal disease Status: Chronic (7) Chronic anemia Status: Chronic (8) Hypertension Status: Chronic Qualifiers: Hypertension type: essential hypertension Qualified Code(s): I10 - Essential (primary) hypertension (9) Narcolepsy Status: Chronic (10) Lupus nephritis Status: Chronic Comment: Status post kidney and liver biopsy (fatty liver) (11) Degenerative disc disease, cervical Status: Chronic (12) Cervical spondylosis Status: Chronic (13) Diabetes mellitus, type II Status: Chronic Qualifiers: Diabetes mellitus complication detail: with other oral complications Qualified Code(s): E11.638 - Type 2 diabetes mellitus with other oral complications (14) SLE (systemic lupus erythematosus) Status: Chronic Reason for Consult Date of Consultation: 09/25/18 Reason for Consultation: Respiratory failure History of Present Illness: The patient is a 48 year old F, with past medical history listed below, who presented to [facility] on 09/24/2018 after being dropped off by her brother secondary to decreased mental status. Patient reportedly had been of her usual health until the day of presentation, but presented with blood pressures of 213/113 and was not responding. Patient's initial BG T in the ER was noted to be 70 and reportedly mental status improved transiently after receiving D50. Patient did admit to missing dialysis the day prior to presentation, but otherwise had no complaints at that time. Patient was eventually admitted to the PCU with a D10 drip. On arrival to the PCU, patient was noted to have significantly depressed mental status. Patient was immediately taken to the intensive care unit and intubated. Patient did receive emergent hemodialysis for an elevated potassium of 6.4. Patient has had significant hypoglycemia overnight requiring D50 repeatedly in addition to the D10 drip. Patient is still not answering questions, sugar has been normalized. Patient did have an attempt at a central line by night hospitalist in the right IJ that was unsuccessful. On my evaluation this morning, patient was placed on a spontaneous breathing trial. Tube feeds were held. Patient's blood pressure is better controlled following hemodialysis. Patient does remain on D10 drip for hypoglycemia. Patient is not able to provide any review of systems at this time. Patient does have a history of intubations with similar type presentation after missing hemodialysis. Patient typically recovers quickly and is discharged within 1-2 days. Past Medical History Past Medical History (Chronic Problems): Chronic Problems (Last Reviewed 08/14/18 @ 10:39 [...] (Chronic) M32.9 Allergies NEGRO Inhibitors Allergy (Verified 09/24/18 11:36) Angioedema diphenhydramine [From Benadryl] Allergy (Verified 09/24/18 11:36) Unknown lisinopril Allergy (Verified 09/24/18 11:36) Angioedema Sulfa (Sulfonamide Antibiotics) Allergy (Verified 09/24/18 11:36) Rash sulfamethoxazole [From Bactrim] Allergy (Verified 09/24/18 11:36) Rash trimethoprim [From Bactrim] Allergy (Verified 09/24/18 11:36) Rash Angioderm Adverse Reaction (Unknown, Uncoded 09/24/18 11:36) Unknown Home Medications: Ambulatory Orders Medication Instructions [...] Diabetes History Items: Diabetes Review of Systems Unable to obtain accurate/complete ROS d/t: See HPI Objective: All imaging was personally reviewed. Chest x-ray shows a right hemodialysis cath with endotracheal tube in appropriate position. No infiltrates are appreciated. - Physical Exam General: Non-Cooperative, - - Good vent synchrony. Good tidal volumes while on spontaneous breathing trial. HEENT: Atraumatic, PERRLA, EOMI, Normocephalic, - - Facial edema noted. Mild scleral thickening with erythema. No icterus appreciated. Oral: Moist Mucosa, No Gingival or Mucosal Lesions/ Ulcerations Neck: Supple, No Nodes, Trachea Midline, - - Swelling of the face and neck noted Lungs: No rhonchi, No wheeze, No rales, Diminished, - - Symmetric expansion. No dullness to percussion. Cardiovascular: Normal S1, Normal S2, Murmur - Grade 2 out of 6 diastolic ejection murmur at the apex, No rub noted, No Gallop, Tachycardic Abdomen: Bowel Sounds Present, Soft, Non Tender, Non-Distended, Obese Extremities: No clubbing, No cyanosis, Edema - Bilateral upper extremity, right greater than left. No lower extremity edema Skin: No rashes, No breakdown Musculoskeletal: No Tenderness to Palpation of Joints or Extremities Lymphatic: No Cervical, Supraclavicular, or Inguinal Adenopathy Neurological: Neuro grossly intact Psych/Mental Status: Flat Affect Vital Signs Temp Pulse Resp BP Pulse Ox 37.3 C H 102 H 15 146/92 H 96 09/25/18 04:00 09/25/18 07:14 09/25/18 07:14 09/25/18 07:00 09/25/18 07:14 Oxygen Flow Rate (L/min) 2 Oxygen Delivery Method Mechanical Ventilator Weight: 65.8 kg Body Mass Index (BMI) 27.8 Finger Stick Blood Glucose 175 Intake and Output for Last 24 Hours Intake Total 362 / 362 832 / 832 Output Total 350 / 350 130 / 130 Balance 702 / 702 Laboratory Tests Past 24 Hrs WBC 7.4 RBC 3.74 L Hgb 11.9 L Hct 38.7 MCV 103.5 H MCH 31.8 MCHC 30.7 L WBC RBC Hgb Hct MCV MCH MCHC RDW RDW Differential Plt Count MPV Immature Gran % (Auto) WBC 9.6 RBC 3.86 L Hgb 12.3 Hct 39.6 MCV 102.6 H MCH 31.9 MCHC 31.1 L POC Glucose POC Glucose 103 104 104 POC Glucose 192 H 42 L* 64 L POC Glucose 117 H 139 H 42 L* POC Glucose 111 H 179 H 71 POC Glucose 175 H 70 Clinical Impression(s) from Imaging Studies Chest X-Ray 09/24/18 10:21 IMPRESSION: Prominent appearance of the right paramediastinal soft tissues although this may represent vascular ectasia lymphadenopathy thyroid enlargement could have this appearance and should be excluded. Recommend consideration for follow up CT scan of the chest to clarify. Mild cardiomegaly. Electronically Signed: Carolina Becker MD at 10:56 EST Tel , Service support , Brain CT 09/24/18 10:22 IMPRESSION: Normal unenhanced CT scan of the brain. Electronically Signed: Carolina Becker MD at 10:54 EST Tel , Service support , Chest X-Ray 09/24/18 14:51 IMPRESSION: Tubes are in adequate position. Cardiomegaly. No evidence for acute cardiopulmonary pathology. Electronically Signed: Kwabena Bueno MD at 20:53 EST , Service support , Assessment/Plan RECOMMENDATIONS: 1. Await results of spontaneous breathing trial 2. Potential hemodialysis, defer to nephrology 3. D10 drip to address hypoglycemia, wean as tolerated 4. Resume anti-hypertensive medications 5. Swallow evaluation if extubated IMPRESSIONS: 1. Acute respiratory failure secondary to acute metabolic encephalopathy secondary to uremia/hypoglycemia Patient with decreased mental status requiring emergent airway stabilization. Patient is currently on a spontaneous breathing trial following hemodialysis. Patient has had lower blood sugars, but is responding to D10 drip. Obtain ABG at the end of the spontaneous breathing trial. Potential extubation later today. 2. Recurrent hypoglycemia/diabetes mellitus type 2 Unclear etiology at this time. Patient does carry a diagnosis of type 2 diabetes mellitus and has been missing hemodialysis treatments. This could lead to accumulation of medications. We will continue to monitor blood sugars closely and wean D10 drip as tolerated. 3. End-stage renal disease with history of noncompliance Patient was significant elevation of creatinine on presentation. Patient does have a history of missing hemodialysis treatments for various reasons. Nephrology has been consulted. Defer to them on timing of repeat hemodialysis sessions. 4. Hypertensive emergency Likely secondary to hypervolemia from missed hemodialysis. Okay to resume baseline medications. Blood pressure is much improved following volume removal with hemodialysis. Would defer to nephrology on initiation of additional antihypertensives versus volume removal. 5. History of noncompliance/lupus/Sjogren's syndrome/cervical spondylitis/chronic immunosuppression/secondary pulmonary hypertension Locates care, management, recovery and prognosis. Patient does have poor venous access at this time. Patient may require port placement for venous access given current situation. Patient is acting as though she has an SVC syndrome, but this would need to be evaluated by a vascular surgeon. Patient does have a history of previous fistula placement. TIME: 45 minutes critical care time spent addressing patient's acute respiratory failure, recurrent hypoglycemia, hypertensive emergency, review of all data and collaboration with care team (6:30 AM to 8:30 AM) Code Visit 9xxxx: [id number] Critical care first hour 09/26/18624 <Electronically signed by Ross Esparza MD> Date Ross Esparza MD Cosigner Signature (if applicable): Date CC: Ross Esparza MD; Arline Ambriz DO; Mitchell Womack MD Signed BEDSIDE GLUCOSE Collected: 09/26/2018 Status: F Source: [place] 5:41 AM [facility] REPOSITORY TYPE CODE TESTS RESULT OUT OF RANGE REFERENCE UNITS LAB L501.080 70-110 mg/dL Normal BEDSIDE GLU 105 Result Comment: MANAGEMENT OF PATIENT CARE PER NURSING PROTOCOL Performed By: #### L501.080 #### [facility] [place] [address] RENAL PROFILE Collected: 09/26/2018 Status: F Source: PAMELA 4:10 AM [facility] REPOSITORY TYPE CODE TESTS RESULT OUT OF RANGE REFERENCE UNITS LAB L501.0100 74-106 mg/dL High GLU 109 Result Comment: Fasting Glucose result from 100 to 125 mg/dL suggests IMPAIRED HOMEOSTASIS per A.D.A. criteria. Please note revised GLUCOSE reference range effective 2017. LAB L501.1000 7-18 mg/dL High BUN 52 LAB L501.1100 0.55-1.02 mg/dL High alert CREAT,SERUM 8.47 Result Comment: Critical Result(s) Called at: 06:32:12 09/26/2018 by: Jose Hernandez RN (ICU). The validity of the calculated GFR AND GFRAA in patients over 70 years has not been determined. Clinical correlation is essential. LAB L501.1110 >60 mL/min Low EST GFR 5 Result Comment: Non- GFR Calc LAB L501.1115 >60 mL/min Low EST GFR - AA 7 Result Comment: GFR Calc LAB L501.1255 ml/min Normal Estimated CRCL 6.26 LAB L501.1300 10-20 RATIO Low BUN/CRE 6.1 LAB L501.1800 3.2-5.0 g/dL Low ALB 2.7 LAB L501.2200 8.5-10. mg/dL Normal 1 CA 8.8 LAB L501.2300 2.5-4.9 mg/dL High PHOS 7.2 LAB L501.5300 136-145 mmol/L Low NA 127 LAB L501.5600 3.5-5.1 mmol/L High K alert 6.0 Result Comment: Critical Result(s) Called at: 06:32:12 09/26/2018 by: Jose Hernandez RN (ICU). LAB L501.5900 98-107 mmol/L Low CL 89 LAB L501.6100 21.0-32.0 mmol/L Normal CO2 26.0 Performed By: #### L500.3600 #### [facility] [address] [place], [place], [address] BEDSIDE GLUCOSE Collected: 09/26/2018 Status: F Source: [place] 12:27 AM [facility] REPOSITORY TYPE CODE TESTS RESULT OUT OF RANGE REFERENCE UNITS LAB L501.080 70-110 mg/dL Normal BEDSIDE GLU 99 Result Comment: MANAGEMENT OF PATIENT CARE PER NURSING PROTOCOL Performed By: #### L501.080 #### [facility] Point of Care [address] [place], [place] [address] BEDSIDE GLUCOSE Collected: 09/25/2018 Status: F Source: PAMELA 5:56 PM [facility] REPOSITORY TYPE CODE TESTS RESULT OUT OF REFERENCE UNITS RANGE LAB L501.080 70-110 mg/dL High BEDSIDE GLU 112 Result Comment: MANAGEMENT OF PATIENT CARE PER NURSING PROTOCOL Performed By: #### L501.080 #### [facility] Point of Care [address] [place] [address] BEDSIDE GLUCOSE Collected: 09/25/2018 Status: F Source: [place] 11:00 AM [facility] REPOSITORY TYPE CODE TESTS RESULT OUT OF REFERENCE UNITS RANGE LAB L501.080 70-110 mg/dL High BEDSIDE GLU 113 Result Comment: MANAGEMENT OF PATIENT CARE PER NURSING PROTOCOL Performed By: #### L501.080 #### [facility] Point of Care [address] [place] [address] BEDSIDE GLUCOSE Collected: 09/25/2018 Status: F Source: [place] 10:02 AM [facility] REPOSITORY TYPE CODE TESTS RESULT OUT OF REFERENCE UNITS RANGE LAB L501.080 70-110 mg/dL High BEDSIDE GLU 123 Result Comment: MANAGEMENT OF PATIENT CARE PER NURSING PROTOCOL Performed By: #### L501.080 #### [facility] Point of Care [address] [place] [address] BEDSIDE GLUCOSE Collected: 09/25/2018 Status: F Source: [place] 5:40 AM [facility] REPOSITORY TYPE CODE TESTS RESULT OUT OF RANGE REFERENCE UNITS LAB L501.080 70-110 mg/dL Normal BEDSIDE GLU 103 Result Comment: MANAGEMENT OF PATIENT CARE PER NURSING PROTOCOL Performed By: #### L501.080 #### [facility] Point of Care [address] [place] [address] CBC W/DIFF, AUTOMATED Collected: 09/25/2018 Status: F Source: [place] 5:30 AM [facility] REPOSITORY TYPE CODE TESTS RESULT OUT OF RANGE REFERENCE UNITS LAB L100.1000 4.4-11.0 K/mm3 Normal WBC 9.6 LAB L100.1200 4.2-5.4 M/mm3 Low RBC 3.86 LAB L100.1300 12.0-15.0 g/dl Normal HGB 12.3 LAB L100.1400 37-47 % Normal HCT 39.6 LAB L100.1500 81-99 fL High MCV 102.6 LAB L100.1600 27.0-32.0 pg Normal MCH 31.9 LAB L100.1700 32-36 g/gl Low MCHC 31.1 LAB L100.1810 11.6-14.6 % High RDW CV 16.9 LAB L100.1820 35.1-43.9 fl High RDW SD 62.5 LAB L100.1900 150-450 K/mm3 Normal PLT 174 LAB L100.2000 6.2-12.0 fl Normal MPV 10.4 LAB L100.2100 47-70 % High NEUT% 72.2 LAB L100.2200 19-41 % Low LY% 13.9 LAB L100.2300 0-10 % High MONO% 11.6 LAB L100.2400 0-5 % Normal EO% 2.0 LAB L100.2500 0-1 % Normal BASO% 0.1 LAB L100.2550 0.0-0.9 % Normal IM GRAN % 0.200 Result Comment: IG% - Immature Granulocytes (promyelocytes, myelocytes and metamyelocytes) > 1% indicates that a LEFT SHIFT is Present. LAB L100.2620 2.0-7.7 X10 3/uL Normal Absolute Neut 7.0 LAB L100.2720 0.83-4.51 X10 3/ul Normal Absolute Lymph 1.34 Performed By: #### L100.0100 #### [facility] [address] [place], [place], [address] RENAL PROFILE Collected: 09/25/2018 Status: F Source: [place] 5:30 AM [facility] REPOSITORY TYPE CODE TESTS RESULT OUT OF RANGE REFERENCE UNITS LAB L501.0100 74-106 mg/dL Normal GLU 96 Result Comment: Please note revised GLUCOSE reference range effective 2017. LAB L501.1000 7-18 mg/dL High BUN 41 LAB L501.1100 0.55-1.02 mg/dL High CREAT,SERUM 7.12 Result Comment: The validity of the calculated GFR AND GFRAA in patients over 70 years has not been determined. Clinical correlation is essential. LAB L501.1110 >60 mL/min Low EST GFR 7 Result Comment: Non- GFR Calc LAB L501.1115 >60 mL/min Low EST GFR - AA 8 Result Comment: GFR Calc LAB L501.1255 ml/min Normal Estimated CRCL 7.45 LAB L501.1300 10-20 RATIO Low BUN/CRE 5.8 LAB L501.1800 3.2-5.0 g/dL Normal ALB 3.2 LAB L501.2200 8.5-10. mg/dL Normal 1 CA 9.1 LAB L501.2300 2.5-4.9 mg/dL High PHOS 6.5 LAB L501.5300 136-145 mmol/L Normal NA 136 LAB L501.5600 3.5-5.1 mmol/L High K 5.4 LAB L501.5900 98-107 mmol/L Low CL 95 LAB L501.6100 21.0-32 mmol/L Normal .0 CO2 29.0 Performed By: #### L500.3600 #### [facility] [address] [place] [address], [address] HEPATITIS B SURFACE Collected: 09/25/2018 Status: F Source: PAMELA AG 5:30 AM [facility] REPOSITORY TYPE CODE TESTS RESULT OUT OF RANGE REFERENCE UNITS LAB L3100.0400 Negative Normal HB Negative SURF AG Result Comment: Performed at: - [facility] [id number] Site Technician: Yannick Means PhD, Phone: [phone] Performed By: #### L3100.0390 #### [facility] (refer to report for specific site) refer to report for address and phone number BEDSIDE GLUCOSE Collected: 09/25/2018 Status: F Source: [place] 3:10 AM [facility] REPOSITORY TYPE CODE TESTS RESULT OUT OF RANGE REFERENCE UNITS LAB L501.080 70-110 mg/dL Normal BEDSIDE GLU 104 Result Comment: MANAGEMENT OF PATIENT CARE PER NURSING PROTOCOL Performed By: #### L501.080 #### [facility] Point of Care [address] [place] [address] BEDSIDE GLUCOSE Collected: 09/25/2018 Status: F Source: [place] 2:07 AM [facility] REPOSITORY TYPE CODE TESTS RESULT OUT OF RANGE REFERENCE UNITS LAB L501.080 70-110 mg/dL Normal BEDSIDE GLU 104 Result Comment: MANAGEMENT OF PATIENT CARE PER NURSING PROTOCOL Performed By: #### L501.080 #### [facility] Point of Care [address] [place] [address] BEDSIDE GLUCOSE Collected: 09/25/2018 Status: F Source: [place] 12:29 AM [facility] REPOSITORY TYPE CODE TESTS RESULT OUT OF REFERENCE UNITS RANGE LAB L501.080 70-110 mg/dL High BEDSIDE GLU 192 Result Comment: MANAGEMENT OF PATIENT CARE PER NURSING PROTOCOL Performed By: #### L501.080 #### [facility] Point of Care [address] [place] [address] BEDSIDE GLUCOSE Collected: 09/25/2018 Status: F Source: [place] 12:00 AM [facility] REPOSITORY TYPE CODE TESTS RESULT OUT OF REFERENCE UNITS RANGE LAB L501.080 70-110 mg/dL Low alert BEDSIDE GLU 42 Result Comment: Dextrose 50 Given MANAGEMENT OF PATIENT CARE PER NURSING PROTOCOL Performed By: #### L501.080 #### [facility] Point of Care [address] [place] [address] BEDSIDE GLUCOSE Collected: 09/24/2018 Status: F Source: [place] 11:22 PM [facility] REPOSITORY TYPE CODE TESTS RESULT OUT OF REFERENCE UNITS RANGE LAB L501.080 70-110 mg/dL Low BEDSIDE GLU 64 Result Comment: MANAGEMENT OF PATIENT CARE PER NURSING PROTOCOL Performed By: #### L501.080 #### [facility] Point of Care [address] [place] [address] BEDSIDE GLUCOSE Collected: 09/24/2018 Status: F Source: [place] 10:02 PM [facility] REPOSITORY TYPE CODE TESTS RESULT OUT OF REFERENCE UNITS RANGE LAB L501.080 70-110 mg/dL High BEDSIDE GLU 117 Result Comment: MANAGEMENT OF PATIENT CARE PER NURSING PROTOCOL Performed By: #### L501.080 #### [facility] Point of Care [address] [place] [address] BEDSIDE GLUCOSE Collected: 09/24/2018 Status: F Source: [place] 8:25 PM [facility] REPOSITORY TYPE CODE TESTS RESULT OUT OF REFERENCE UNITS RANGE LAB L501.080 70-110 mg/dL High BEDSIDE GLU 139 Result Comment: MANAGEMENT OF PATIENT CARE PER NURSING PROTOCOL Performed By: #### L501.080 #### [facility] Point of Care [address] [place], [place] [id number] BEDSIDE GLUCOSE Collected: 09/24/2018 Status: F Source: [place] 7:53 PM [facility] REPOSITORY TYPE CODE TESTS RESULT OUT OF REFERENCE UNITS RANGE LAB L501.080 70-110 mg/dL Low alert BEDSIDE GLU 42 Result Comment: Dextrose 50 Given MANAGEMENT OF PATIENT CARE PER NURSING PROTOCOL Performed By: #### L501.080 #### [facility] Point of Care [address] [place], [place] [id number] BEDSIDE GLUCOSE Collected: 09/24/2018 Status: F Source: [place] 4:17 PM [facility] REPOSITORY TYPE CODE TESTS RESULT OUT OF REFERENCE UNITS RANGE LAB L501.080 70-110 mg/dL High BEDSIDE GLU 111 Result Comment: Dr Orders Followed MANAGEMENT OF PATIENT CARE PER NURSING PROTOCOL Performed By: #### L501.080 #### [facility] Point of Care [address] [place] [address] BLOOD GASES BY CPS Collected: 09/24/2018 Status: F Source: [place] 4:03 PM [facility] REPOSITORY TYPE CODE TESTS RESULT OUT OF RANGE REFERENCE UNITS LAB L9000.9990 Normal BLD GAS TYPE ART LAB L9001.1000 L Normal SITE Brachial LAB L9001.1010 NA Normal SHARRI TEST LAB L9001.1048 Normal Mode A-C LAB L9001.1050 O2 Normal Delivery Dev Vent LAB L9001.1060 MV Normal 5.00 LAB L9001.1065 Vt Normal 350 LAB L9001.1070 RR 14 Normal LAB L9001.1074 50 Normal FI02 LAB L9001.1076 5 Normal PEEP LAB L9001.1104 Normal Results To ICU LAB L9001.1105 Normal Time Given 1558 LAB L9001.1110 7.35-7.45 pH Normal - I-STAT 7.39 LAB L9001.1210 35-45 mmHg High pCO2 - ISTAT 45.6 LAB L9001.1310 75-100 mmHG 80 Normal PO2 I-STAT LAB L9001.2300 22-26 mmol/L High HCO3 ISTAT 27.3 LAB L9001.2400 -2 to +2 mmol/L BE 2 Normal ISTAT LAB L9001.2415 mmol/L 29 Normal TOTAL CO2 ISTAT LAB L9001.2425 95-99 % 95 Normal SO2 ISTAT Performed By: #### L9000.0800 #### [facility] Point of Care [address] [place], [place] [address] URINE DRUG SCREEN Collected: 09/24/2018 Status: F Source: [facility] 3:45 PM [facility] REPOSITORY TYPE CODE TESTS RESULT OUT OF [...] MNEMONIC: [facility] LAB L505.5005 VISTA UDS PH 8 Normal LAB L505.5015 <1000 ng/mL AMPHETAMINES Normal [...] Normal NEGATIVE Performed By: #### L505.5000 #### [facility] [address] [facility] [place], [place], [id number] EMERGENCY DEPARTMENT Observed: 09/24/2018 Status: F Source: [place] SUMMARY 3:32 PM [facility] REPOSITORY [facility] Medical Records Department [address] [place] [address] Emergency Department Summary 09/24/18 1025 MR#: [id number] Acct: [id number] Name: PAVITHRA PAINTER Rep #: [id number] : 1970 48 From: Apolinar Kyle MD PCP: Mitchell Womack MD, Chi Status: ADM KELLI - ER Visit Summary Date of Service: 09/24/18 Chief Complaint: [] Unresponsive brought in from home History of Present Illness: The patient is a 48 F [] that the history is very limited apparently per nursing staff the patient's brother brought her in from home in unresponsive condition she is able to get out of the car be placed in a wheelchair on arrival to the resuscitation bay she is a blood pressure of 213/113 she has sinus respirations she does not respond to deep sternal rub, she has a right upper chest dialysis catheter in place, her initial BG T was 70, she was given D50 and she woke and began answering questions, she indicates she is not on insulin, that she missed dialysis yesterday she is indicating that she sounds like she went to sleep feeling fine, and then she does not really recall any issues this morning. At this time she denies head neck chest or abdominal pain indicates that she is tired, she moves the right upper extremity both lower extremities she is not moving the left upper extremity it is not clear if that is a baseline issue for her or something new she has on physical exam what appears to be a healed scar to the mid scalp area etiology that is unclear the right chest dialysis catheter again has movements as above Physical Examination: [] 213/115 99% room air General, no distress resting comfortably HEENT is generally unremarkable The neck is supple no adenopathy Cardiovascular, regular rate and rhythm Lungs, clear bilateral Abdomen, soft nontender Extremities, no clubbing, left upper extremity has what appears to be an old fistula there is no thrill there is no radial pulse the left hand is slightly cooler complaint compared to the right hand Refill slightly diminished and again she has no movement of the left upper extremity from the shoulder elbow wrist or hand Neurologic, awake alert answering questions appropriately moving the right upper extremity and both lower extremity to command she does not move the upper extremity, left upper extremity exam is as above NIH of about 6-8 Test Results: [] Emergency Department Course and Treatment: [] She was immediately started on IV fluids D50, D10 we spoke with nephrology the arranging for immediate dialysis she has screening labs pending head CT we are trying to determine additional history, her airway is stable On reevaluation she remained stable she has been started on the hyperkalemia protocol as her potassium returned at 6.4 the EKG shows a sinus rhythm no signs of acute abnormalities, head CT and other screening labs are unremarkable see these were reports she is now able to move her left upper extremity, she remains awake and alert complaining of fatigue Treatment Plan: [] Admission and consider ICU stay for dialysis in mental status will discuss with hospitalist Disposition: [] Impression: [] Change in mental status, end-stage renal disease, hypoglycemia, hypertension, This note was generated with Iterate Studioation software. It may contain incorrect words, spelling, [...] your Primary Care Provider. Call [facility] ([phone]) or report to the closest Emergency Room. Call 911 if necessary. 09/24/18 1532 <Electronically signed by Apolinar Kyle MD> Date Apolinar Kyle MD Cosigner Signature (If Indicated): Date CC: Mitchell Womack MD HISTORY AND PHYSICAL Observed: 09/24/2018 Status: F Source: [place] EXAM 3:04 PM [facility] REPOSITORY [facility] Medical Records Department [address] [place] [address] History and Physical 09/24/18 1119 MR#: [id number] Acct: [id number] Name: PAVITHRA PAINTER Rep #: [id number] : 1970 48 From: Mariza Finch MD PCP: Mitchell Womack MD, Chi Status: ADM KELLI [facility] of Present Illness Date of Admission: 09/24/18 Chief Complaint: altered mental status The patient is a 48 year old F with an extensive past medical history which includes ESRD on hemodialysis, potential, hyperlipidemia, valvular heart disease, lupus with lupus nephritis, diabetes mellitus x2, pulmonary hypertension chronic pain syndrome. She was admitted through the ED on 09/24/2018 with a complaint of altered mental status. Patient was dropped off by her brother who was not available for questions at time of review. According to ED documentation, patient missed dialysis yesterday and brother found her confused and so she was brought in. Patient was unable to give any history even though she was alert but very somnolent. All she kept on seen in response to questions was mitchell painter. Unable to do review of systems o/a of confusion. Of note, patient was recently admitted and discharged last month after being admitted for altered mental status. She was managed for acute metabolic encephalopathy which was thought to be drug-induced she was found to have lots of narcotics and benzodiazepines which were . During that admission, she had a CT of the right upper extremity which revealed possible pocket of gas around the site of the dialysis catheter and also had edema extending from the right chest to the right wrist. General surgery was consulted then and cultures done showed Serratia. She was started on IV cefepime which was to continue with dialysis. With this admission, in the ED, vitals were stable. Labs showed potassium of 6.4 and creatinine of 9.9. Initial troponin was 0.047. CBC was unremarkable. Brain CT and chest x-ray were noncontributory. She has been admitted to be managed for acute metabolic encephalopathy and hyperkalemia likely due to uremia from missed dialysis. [] Past Medical History Past Medical History (Chronic Problems): Chronic Problems (Last Reviewed 08/14/18 @ 10:39 [...] (Chronic) M32.9 Allergies NEGRO Inhibitors Allergy (Verified 09/24/18 10:16) Angioedema lisinopril Allergy (Verified 09/24/18 10:16) Angioedema Sulfa (Sulfonamide Antibiotics) Allergy (Verified 09/24/18 10:16) Rash sulfamethoxazole [From Bactrim] Allergy (Verified 09/24/18 10:16) Rash trimethoprim [From Bactrim] Allergy (Verified 09/24/18 10:16) Rash Angioderm Adverse Reaction (Unknown, Uncoded 09/24/18 10:16) Unknown Home Medications: Ambulatory Orders Medication Instructions [...] Diabetes History Items: Diabetes Review of Systems Unable to obtain accurate/complete ROS d/t: patient very lethargic and unable to answer questions VTE Information - Inpt Only VTE Present on Admission: No VTE Pharm Prophylaxis ordered?: Yes - Physical Exam General: Confused, Lethargic, - - unable to answer any questions, and mumbled incoherently HEENT: Atraumatic, PERRLA, EOMI, Normocephalic Oral: Dry Mucosa Neck: Supple, No JVD, Negative Carotid Bruits Lungs: Clear to auscultation, Normal air movement, No rhonchi, No wheeze, No rales Cardiovascular: Regular rate, Regular Rhythm, Normal S1, Normal S2, No murmurs Abdomen: Bowel Sounds Present, Soft, Non Tender, Non-Distended, No Hepato-splenomegaly, Obese Extremities: No clubbing, No cyanosis, No edema, Capillary Refill Less than 3 Seconds Skin: No rashes, No breakdown Musculoskeletal: No Tenderness to Palpation of Joints or Extremities Lymphatic: No Cervical, Supraclavicular, or Inguinal Adenopathy Neurological: Cranial nerves II-XII grossly intact, - - moves all extremities spontaneously. confused, very lethargic. GCS- 12/15 Psych/Mental Status: - - as under neuro exam Vital Signs Temp Pulse Resp BP Pulse Ox 98.7 F 79 7 L 213/125 H 100 09/24/18 10:12 09/24/18 10:12 09/24/18 10:12 09/24/18 10:12 09/24/18 10:12 Oxygen Flow Rate (L/min) 15 Oxygen Delivery Method Non-Rebreather Weight: 167 lb 8 oz Body Mass Index (BMI) 28.7 Finger Stick Blood Glucose 100 Laboratory Tests Past 24 Hrs WBC 7.4 RBC 3.74 L Hgb 11.9 L Hct 38.7 MCV 103.5 H MCH 31.8 MCHC 30.7 L RDW 17.0 H RDW Differential 63.5 H Diagnostic Data Chest X-Ray 09/24/18 10:21 IMPRESSION: Prominent appearance of the right paramediastinal soft tissues although this may represent vascular ectasia lymphadenopathy thyroid enlargement could have this appearance and should be excluded. Recommend consideration for follow up CT scan of the chest to clarify. Mild cardiomegaly. Electronically Signed: Carolina Becker MD at 10:56 EST Tel , Service support , Brain CT 09/24/18 10:22 IMPRESSION: Normal unenhanced CT scan of the brain. Electronically Signed: Carolina Becker MD at 10:54 EST Tel , Service support , Assessment/Plan All Active Problems (Last Reviewed 08/14/18 @ 10:39 by Cesar Sheth MD) Extremity edema (Acute) Encephalopathy acute (Acute) 48-year-old female admitted with a complaint of confusion 1. Acute metabolic encephalopathy due to uremia from missed dialysis and hypoglycemia * was brought in by her brother due to altered mental status * missed dialysis yesterday * intial blood glucose was 70. was resuscitated with D50 ampule * CT brain done was negative * on admission to PCU, patient became more obtunded, and was unresponsive.She became more short of breath, so decision was made to transfer her to the ICU immediately. * ABG done showed pH of 7.32, ABG of 54.3, pO 2 of 105. * patient drooling and unable to protect her airway * will therefore intubate to protect airway. * likely that diabetes meds were not metabolised due to missed dialysis * hold diabetes meds * consult nephrology for urgent dialysis * 2. Acute hypercapnic and hypoxic respiratory failure due to fluid overload and narcolepsy * as under 1. * intubated emergently * post intubation CXR ordered * 3. Hyperkalemia due to missed dialysis * K was 6.4; received potassiuim depleting cocktail in ED. * for dialysis today * give kayexalate 30mg once via NG tube * 4. Hypoglycemia * likely due to diabetes meds still in her system after she missed dialysis * hold diabetes meds * ISS * accuchecks ACHS * on D10 60cc/hr * 5. ESRD on hemodialysis, on sevelamer. 6. Lupus and Sjogren's syndrome: On prednisone, hydroxychloroquine and cevimeline 7. Hypertensive urgency: * due to fluid overload from missed dialysis. * On metoprolol. Will resume metoprolol. * IV hydralazine prn. * PO clonidine once via NG tube. Needs urgent dialysis. 8. Depression and anxiety: On Cymbalta and mirtazapine DVT prophylaxis: heparin Critical care 1st hour: 50 mins Code Visit Inpatient E AND M: 91348 Init Hosp L3 Procedures: 53008 Critial Care 1st Hr - emergency airway insertion- 56873 09/24/18 1504 <Electronically signed by Mariza Finch MD> Date Mariza Finch MD Cosigner Signature: Date (if applicable) CC: Mariza Finch MD; Mitchell Womack MD Signed CXR FOR LINE PLACEMENT Observed: 09/24/2018 Status: F Source: [place] 2:52 PM [facility] REPOSITORY [facility] Imaging Services [address] [place] [address] CXR for Line Placement MR#: [id number] Acct: [id number] Name: PAVITHRA PAINTER Rep #: [id number] : 1970 F 48 From: Kwabena Bueno MD PCP: Mitchell Womack MD, Chi Status: ADM IN Study: CXR for Line Placement Date of Exam: 09/24/18 Exam# [id number] Ordering Dr: Mariza Finch MD STUDY: X-RAY CHEST REASON FOR EXAM: Female, 48 years old. Endotracheal tube placement. TECHNIQUE: Single AP portable view of the chest. Current examination was done at 1500 hours. COMPARISON: 09/24/2018, Aleksandra at 1040 hours. FINDINGS: Endotracheal tube tip is at the level of the clavicular heads, 5.4 cm above the haydee. There is a right internal jugular double lumen central venous catheter, probably dialysis catheter, with its tip in the distal superior vena cava. There is a nasogastric tube with its sidehole and tip in the body of the stomach. There is no demonstrated pneumothorax. The lungs are clear and expanded. There is no demonstrated pleural abnormality. The heart is enlarged. Normal mediastinum and malorie. Normal visualized pulmonary arteries. Normal visualized aortic arch and descending thoracic aorta. Normal visualized thoracic spine. Normal visualized ribs, clavicles, and shoulders. There is no demonstrated abnormality of the visualized soft tissue structures of the upper abdomen. RAD/CXR for Line Placement IMPRESSION: Tubes are in adequate position. Cardiomegaly. No evidence for acute cardiopulmonary pathology. Electronically Signed: Kwabena Bueno MD at 20:53 EST , Service support , CC: Mariza Finch MD; Mitchell Womack MD Individual Pension Adviser: Signed BLOOD GASES BY CPS Collected: 09/24/2018 Status: F Source: [place]A 2:43 PM [facility] REPOSITORY TYPE CODE TESTS RESULT OUT OF RANGE REFERENCE UNITS LAB L9000.9990 Normal BLD GAS TYPE ART LAB L9001.1000 Normal SITE L Radial LAB L9001.1010 Normal SHARRI TEST NA LAB L9001.1050 O2 Normal Delivery Dev Nasal Can LAB L9001.1055 /min Normal LPM 2.0 LAB L9001.1104 Normal Results To ICU MD LAB L9001.1105 Normal Time Given 1439 LAB L9001.1110 7.35-7.45 Low pH - I-STAT 7.32 LAB L9001.1210 35-45 mmHg High pCO2 - ISTAT 54.3 LAB L9001.1310 75-100 mmHG High PO2 I-STAT 105 LAB L9001.2300 22-26 mmol/L High HCO3 ISTAT 27.8 LAB L9001.2400 -2 to +2 mmol/L BE Normal ISTAT 2 LAB L9001.2415 mmol/L Normal TOTAL CO2 29 ISTAT LAB L9001.2425 95-99 % Normal SO2 ISTAT 97 Performed By: #### L9000.0800 #### [facility] Point of Care [address] [place] [address] BEDSIDE GLUCOSE Collected: 09/24/2018 Status: F Source: [place] 2:35 PM [facility] REPOSITORY TYPE CODE TESTS RESULT OUT OF REFERENCE UNITS RANGE LAB L501.080 70-110 mg/dL High BEDSIDE GLU 179 Result Comment: MANAGEMENT OF PATIENT CARE PER NURSING PROTOCOL Performed By: #### L501.080 #### [facility] Point of Care [address] [place] [address] BEDSIDE GLUCOSE Collected: 09/24/2018 Status: F Source: [place] 1:56 PM [facility] REPOSITORY TYPE CODE TESTS RESULT OUT OF RANGE REFERENCE UNITS LAB L501.080 70-110 mg/dL Normal BEDSIDE GLU 71 Result Comment: MANAGEMENT OF PATIENT CARE PER NURSING PROTOCOL Performed By: #### L501.080 #### [facility] Point of Care [address] [place] [address] BEDSIDE GLUCOSE Collected: 09/24/2018 Status: F Source: [place] 11:22 AM [facility] REPOSITORY TYPE CODE TESTS RESULT OUT OF REFERENCE UNITS RANGE LAB L501.080 70-110 mg/dL High BEDSIDE GLU 175 Result Comment: MANAGEMENT OF PATIENT CARE PER NURSING PROTOCOL Performed By: #### L501.080 #### [facility] Point of Care [address] [place] [address] CPK TOTAL, CREATINE Collected: 09/24/2018 Status: F Source: [place] KINASE 10:27 AM [facility] REPOSITORY Order Comment: Comments: DC when propofol is d/c'd Comments: DC when propofol is d/c'd TYPE CODE TESTS RESULT OUT OF RANGE REFERENCE UNITS LAB L501.3620 26-192 U/L Normal CPK TOTAL 152 Result Comment: Moderate Hemolysis, Result may be falsely increased. Performed By: #### L501.3620, L501.5000 #### [facility] [address] [place], [address] TRIGLYCERIDES Collected: 09/24/2018 Status: F Source: [place] 10:27 AM [facility] REPOSITORY Order Comment: Comments: DC when propofol is d/c'd Comments: DC when propofol is d/c'd TYPE CODE TESTS RESULT OUT OF RANGE REFERENCE UNITS LAB L501.5000 mg/dL Normal TRIG 136 Result Comment: The drugs N-Acetylcysteine and Metamizole may falsely depress this assay. Serum Triglycerides Reference Interval Normal <150 mg/dL Borderline high 150 - 199 mg/dL High 200 - 499 mg/dL Very High > or = 500 mg/dL Performed By: #### L501.3620, L501.5000 #### [facility] [address] [place], [address] BRAIN/HEAD WITHOUT Observed: 09/24/2018 Status: F Source: [place] CONTRAST 10:23 AM [facility] REPOSITORY [facility] Imaging Services [address] [place] [address] Brain/Head without Contrast MR#: [id number] Acct: [id number] Name: PAVITHRA PAINTER Rep #: [id number] : 1970 F 48 From: Carolina Becker MD PCP: Vu GARCIA,Mitchell Chi Status: REG ER Study: Brain/Head without Contrast Date of Exam: 09/24/18 Exam# [id number] Ordering Dr: Apolinar Kyle MD STUDY: CT BRAIN WITHOUT CONTRAST REASON FOR EXAM: Female, 48 years old. Infusion unresponsive history of narcolepsy diabetes and end-stage renal disease RADIATION DOSAGE (If Supplied By Facility): CTDIvol = ( 44.99 ) mGy, DLP = ( 812.98 ) mGycm TECHNIQUE: Transaxial CT imaging of the brain was performed without administration of intravenous contrast material. Individualized dose optimization techniques were used for this CT. COMPARISON: August 12, 2018 CT scan had FINDINGS: Normal soft tissue structures. Normal calvarium. Normal size ventricles and extra-axial spaces for the patient's age. Normal white matter tracts of the cerebral hemispheres. Normal basal ganglia and thalami. Normal brainstem. Normal cerebellum. There is no intracranial hemorrhage. There are no findings of an acute ischemic infarction. There is a right-sided maxillary mucosal retention cyst opacification of the right frontal sinus. There is postoperative change in the maxillary sinuses. CT/Brain/Head without Contrast IMPRESSION: Normal unenhanced CT scan of the brain. Electronically Signed: Carolina Becker MD at 10:54 EST Tel , Service support , CC: MD Alem Kyle; Mitchell Womack MD Individual Pension Adviser: Signed CHEST 1 VIEW Observed: 09/24/2018 Status: F Source: [place] (PORTABLE) 10:23 AM [facility] REPOSITORY [facility] Imaging Services [facility] [place] [address] Chest 1 View (Portable) MR#: [id number] Acct: [id number] Name: PAVITHRA PAINTER Rep #: [id number] : 1970 F 48 From: Carolina Becker MD PCP: Mitchell Womack MD, Chi Status: REG ER Study: Chest 1 View (Portable) Date of Exam: 09/24/18 Exam# [id number] Ordering Dr: Apolinar Kyle MD STUDY: X-RAY CHEST REASON FOR EXAM: Female, 48 years old. Shortness of breath TECHNIQUE: Single AP portable view of the chest. COMPARISON: September 09, 2018 chest x-ray FINDINGS: There is a right-sided central line tip is in the vena cava. The lungs are underexpanded with compared to prior study. There is no demonstrated pleural abnormality. There is mild cardiac enlargement. And compared to prior study this is slightly greater prominence of the right-sided paramediastinal soft tissues. Normal visualized pulmonary arteries. Normal visualized aortic arch and descending thoracic aorta. Normal visualized thoracic spine. Normal visualized ribs, clavicles, and shoulders. There is no demonstrated abnormality of the visualized soft tissue structures of the upper abdomen. RAD/Chest 1 View (Portable) IMPRESSION: Prominent appearance of the right paramediastinal soft tissues although this may represent vascular ectasia lymphadenopathy thyroid enlargement could have this appearance and should be excluded. Recommend consideration for follow up CT scan of the chest to clarify. Mild cardiomegaly. Electronically Signed: Carolina Becker MD at 10:56 EST Tel , Service support , CC: MD Alem Kyle; Mitchell Womack MD Individual Pension Adviser: Signed CBC W/DIFF, AUTOMATED Collected: 09/24/2018 Status: F Source: [place] 10:21 AM [facility] REPOSITORY TYPE CODE TESTS RESULT OUT OF RANGE REFERENCE UNITS LAB L100.1000 4.4-11.0 K/mm3 Normal WBC 7.4 LAB L100.1200 4.2-5.4 M/mm3 Low RBC 3.74 LAB L100.1300 12.0-15.0 g/dl Low HGB 11.9 LAB L100.1400 37-47 % Normal HCT 38.7 LAB L100.1500 81-99 fL High MCV 103.5 LAB L100.1600 27.0-32.0 pg Normal MCH 31.8 LAB L100.1700 32-36 g/gl Low MCHC 30.7 LAB L100.1810 11.6-14.6 % High RDW CV 17.0 LAB L100.1820 35.1-43.9 fl High RDW SD 63.5 LAB L100.1900 150-450 K/mm3 Normal PLT 192 LAB L100.2000 6.2-12.0 fl Normal MPV 10.9 LAB L100.2100 47-70 % Normal NEUT% 51.3 LAB L100.2200 19-41 % Normal LY% 30.6 LAB L100.2300 0-10 % High MONO% 14.3 LAB L100.2400 0-5 % Normal EO% 3.2 LAB L100.2500 0-1 % Normal BASO% 0.3 LAB L100.2550 0.0-0.9 % Normal IM GRAN % 0.300 Result Comment: IG% - Immature Granulocytes (promyelocytes, myelocytes and metamyelocytes) > 1% indicates that a LEFT SHIFT is Present. LAB L100.2620 2.0-7.7 X10 3/uL Normal Absolute Neut 3.8 LAB L100.2720 0.83-4.51 X10 3/ul Normal Absolute Lymph 2.27 Performed By: #### L100.0100 #### [facility] [address] [place] [address]. [place], [place], [address] BASIC METABOLIC Collected: 09/24/2018 Status: F Source: [place] PROFILE (BMP) 10:21 AM [facility] REPOSITORY TYPE CODE TESTS RESULT OUT OF RANGE REFERENCE UNITS LAB L501.0100 74-106 mg/dL Normal GLU 77 Result Comment: Please note revised GLUCOSE reference range effective 2017. LAB L501.1000 7-18 mg/dL High BUN 82 LAB L501.1100 0.55-1.02 mg/dL High alert CREAT,SERUM 9.90 Result Comment: Critical Result(s) Called at: 10:48:55 09/24/2018 by: Oleg Lane RN The validity of the calculated GFR AND GFRAA in patients over 70 years has not been determined. Clinical correlation is essential. LAB L501.1110 >60 mL/min Low EST GFR 5 Result Comment: Non- GFR Calc LAB L501.1115 >60 mL/min Low EST GFR - AA 5 Result Comment: GFR Calc LAB L501.1255 ml/min Normal Estimated CRCL 6.13 LAB L501.1300 10-20 RATIO Low BUN/CRE 8.3 LAB L501.2200 8.5-10. mg/dL Normal 1 CA 9.2 LAB L501.5300 136-145 mmol/L Normal NA 142 LAB L501.5600 3.5-5.1 mmol/L High K alert 6.4 Result Comment: Moderate Hemolysis, Result may be falsely increased. Critical Result(s) Called at: 10:48:55 09/24/2018 by: Oleg Lane RN LAB L501.5900 98-107 mmol/L Normal CL 106 LAB L501.6100 21.0-32.0 mmol/L Normal CO2 26.0 LAB L501.6200 5-15 Normal GAP 10 Performed By: #### L500.2500, L501.4010 #### [facility] [address] [place], [place], [address] TROPONIN-I Collected: 09/24/2018 Status: F Source: [place] 10:21 AM [facility] REPOSITORY TYPE CODE TESTS RESULT OUT OF RANGE REFERENCE UNITS LAB L501.4010 <0.045 ng/mL High 0.047 TROPONIN-I Result Comment: TROPONIN-I EXPECTED VALUES <0.045 Negative 0.045 - 0.590 Consistent with Cardiac Damage > OR = 0.600 Critical Value Not every elevated troponin is indicative of HI. These values should be used with clinical judgement in examining the patient's clinical picture for diagnosis. To establish a diagnosis of HI versus myocardial injury, there must be a demonstrated rise and/or fall in the troponin values, in addition to ischemic symptoms, EKG changes, new regional wall motion abnormality, and/or angiographical evidence. PLEASE NOTE: REFERENCE RANGES EDITED 18 Performed By: #### L500.2500, L501.4010 #### [facility] [address] [place], [address] BEDSIDE GLUCOSE Collected: 09/24/2018 Status: F Source: [place] 10:11 AM [facility] REPOSITORY TYPE CODE TESTS RESULT OUT OF RANGE REFERENCE UNITS LAB L501.080 70-110 mg/dL Normal BEDSIDE GLU 70 Result Comment: MANAGEMENT OF PATIENT CARE PER NURSING PROTOCOL Performed By: #### L501.080 #### [facility] Point of Care [address] [facility] [place] [address] GLUCOSE - UHE Collected: 09/23/2018 Status: F Source: [facility] 2:05 PM [facility] REPOSITORY TYPE CODE TESTS RESULT OUT OF REFERENCE UNITS RANGE LAB GLUC 70-99 mg/dL High Glucose 198 Performed By: #### GLUE #### [address] [address] #### QUIN #### [facility] [id number] [place] [address] [place] [address] CORTISOL Collected: 09/23/2018 Status: F Source: [facility] 2:05 PM [facility] REPOSITORY TYPE CODE TESTS RESULT OUT OF REFERENCE UNITS RANGE LAB QUIN 3.09-22.40 mcg/dL Cortisol 5.49 Performed By: #### GLUE #### [address] [address] #### QUIN #### [facility] [address] [address] [facility] [address] [place] [address] CROSSMATCH, FREEZE Collected: 09/21/2018 Status: F Source: [place] 12:51 PM [facility] REPOSITORY TYPE CODE TESTS RESULT OUT OF REFERENCE UNITS RANGE LAB HLFXM(LOINC ) CROSSMATCH, COMMENT FREEZE Result Comment: SEE SEPARATE REPORT. Performed By: #### HLFXM #### [facility] [address] [address] [place] [address] INITAL EVALUATION (1) Observed: 09/21/2018 Status: F Source: [place] - PT 8:36 AM [facility] REPOSITORY [facility] [address] [place] [address]. [address] [place] [address] / REHABILITATION SERVICES INITIAL EVALUATION MR#: [id number] Acct: [id number] Name: PAVITHRA PAINTER Rep #: [id number] : 1970 48 From: Maureen Solis PT, Cert. MDT Referring Dr.: Mitchell Womack MD Status: REG RCR Insurance: MEDICARE PART A B MEDICAID Patient's Visit Information PAVITHRA PAINTER is a 48 year old F referred to Physical Therapy by Mitchell Womack MD with a diagnosis of NECK PAIN AND WEAKNESS. Date of Evaluation: 09/20/18 Physical Therapist: Maureen Solis, PT, Cert MDT - Visit Plan Frequency: 2x /Week Duration: 4-6 Weeks Plan: *patient reports that she is currently off of diabetic medications due to the episodes of hypoglycemia. Patient reports she would like for us to give her candy and juice from her back pack if she has an episode or call the squad. CERVICAL ISOMETRICS. POSTURE CORRECTION/STRENGTHENING, INSTRUCTION IN APPROPRIATE BODY MECHANICS. CORE STRENGTHENING. SHAN UE AND LE STRENGTHENING. BALANCE TRAINING. HEP INSTRUCTION. - Subjective Findings: Diagnosis: NECK PAIN AND GENERAL WEAKNESS Work/Leisure: UNEMPLOYEED. Disability: YES. Present symptoms: NECK PAIN AND INTO SKULL - SHOOTING PAIN, SHAN SHOULDER PAIN AND ACROSS CHEST, HIPS/LOW BACK AND SHAN KNEE PAIN. NEURAPATHY IN TOES AND FINGERS. Present since: 20 YEARS BUT PAIN ACROSS CHEST IS NEW. HEART PROBLEMS HAVE BEEN RULED OUT. Pain Scale: WORST 5/10, LEAST 2/10. Currently: 3/10. GETTING A LITTLE BIT WORSE. Commenced as a result of: JUN 2018 RIGHT UE FISTUAL SURGERY IN PART INCREASED HER DEBILITY BUT HAS ALSO HAD THREE HYPOGLYCEMIC EPISODES WITH ER VISITS AND ONE HOSP ADMISSION IN THE LAST TWO MONTHS. THE NECK/SHOULDER AND NECK PAIN STARTED OCCURRING AFTER THE FISTULA SURGERY JUN 2018. MORE RIGHT UE FISTULA SURGERY PENDING IN THE NEXT MONTH OR TWO. Symptoms at onset: A SCALELY PATCH ON HER SCALP WAS HER FIRST SYMPTOM AND SHE WAS DIAGNOSED WITH SEVERE DERMATITIS AND THEN SHE WAS EVENTUALLY DIAGNOSED WITH LUPUS AFTER GETTING NON BACTERIAL, NON VIRAL MENENGITIS. SHE REPORTS THE RIGHT UE FISTULA SURGERY IS A NEW PLACEMENT DUE TO THE LEFT ONE BECOMING NON FUNCTIONAL. Worse: LIFTING, OVER EXERTING, POOR SLEEP. Better: REST AND SOMETIMES STRETCHING. Disturbed sleep: YES. Previous history/Previous treatment: LAND AND WATER EX'S. PATIENT PREFERS LAND. Gait: DISTANCE LIMITED. ENDURANCE IS A PROBLEM. STAIRS ARE DIFFICULT. HIP AND KNEE PAIN ALSO LIMITS HER WALKING SOMETIMES. HAVING MORE TROUBLE STANDING AND SITTING UP STRAIGHT. PMH: Past Problem with dialysis access (Acute). Dehydration with [...] Status post total hip replacement, bilateral (Acute). *patient reports that she is currently off of diabetic medications due to the episodes of hypoglycemia. Patient reports she would like for us to give her candy and juice from her back pack if she has an episode or call the squad. OTHER: PATIENT REPORTS SHE ALSO HAD DIAGNOSIS OF ENCEPHALOPATHY WHEN HOSPITALIZED. SHE IS NOW TRYING TO EAT MORE EVEN IF SHE ISN'T HAVING HUNGER PAINS. PATIENT DENIES ANY INTENSIONAL OVERDOSE - Objective *patient reports that she is currently off of diabetic medications due to the episodes of hypoglycemia. Patient reports she would like for us to give her candy and juice from her back pack if she has an episode or call the squad. PRIOR TO TESTING PATIENT DENIED HAVING ANY RESTRICTIONS THAT SHE IS AWARE OF. Sitting Posture: POOR. Standing Posture: POOR. PATIENT IS VERY SLOUCHED WITH ROUNDED SHOULDERS AND FORWARD HEAD. Postural strength: POOR. Other Observations: INDEP GAIT INTO PT WITHOUT AD WITH SLOW CADANCE AND NO LOB AND EXCESSIVE TRUNK FLEXION. INDEP TRANSFER SIT TO STAND WITHOUT UE ASSIST. POOR ENDURANCE. Motor deficit: SHAN UE AND LE STRENGTH GROSSLY 4-/5 WITH MMT'ING. RIGHT VENEREAL DISEASE INVESTIGATOR STRENGTH 55 LBS AND LEFT 45 LBS DESPITE RIGHT UE FISTULA SURGERY. ROM deficit: SHAN UE AND LE ROM WFL. Lumbar mvmt loss: flex - NIL. ext - ALBERTO R SG - MIN. L SG - MIN. Core strength: POOR. Scapular Strength: POOR. Cervical Mvmt Loss: FLEX - NIL, EXT - MIN TO MOD, PRO - NIL, RET - ALBERTO, SHAN SB - NIL, SHAN ROT - MIN. PATIENT WITH C/O INCREASED PAIN IN SHAN NECK REGIONS WITH CERVICAL SHAN SB AND EXTENSION ROM TESTING. OTHER: PATIENT HAS GENERALIZED WEEK AND POOR ENDURANCE. SHE IS ABLE TO SLS ON EACH LEG WITHOUT UE ASSIST X APPROX 5 SECONDS EACH. PATIENT STILL HAS SWELLING IN RIGHT UE FROM FISTULA SURGERY AND ALTERED SENSATION IIN HER RIGHT ELBOW AND FOREARM. - Goals Goal 1:: DECREASE C/O NECK PAIN Goal Time Frame: 4-6 Weeks Goal 2:: IMPROVE POSTURAL, STANDING, WALKING, PERSONAL CARE, READING, SLEEP AND RECREATIONAL FUNCTION Goal Time Frame: 4-6 Weeks Goal 3:: INDEP AND SAFE GAIT ON ALL SURFACES WITH LEAST ASSISTIVE DEVICE X 1600 FEET WITH MILD SOB. Goal Time Frame: 4-6 Weeks Goal 4:: INDEP HEP FOR GENERAL UPPER AND LOWER [...] training, Balance training, Body mechanics, Postural training, Active ROM, Dynamic Lumbar Stabilization, Scapular Strength/Stabilization For the Purpose of:: To decrease pain, To increase ROM, To improve muscle performance and motor function, To improve ability to perform ADL's, To increase tolerance to activity/condition/position, To improve gait and locomotor functions Thank you for the opportunity to evaluate your patient. For Medicare and Medicare HMO plans, please review the plan of care and approve it. It will need to be FAXED BACK to us at [phone] for Medicare purposes. For Medicare only, by signing this I certify the plan of care. Please let me know if there are questions or concerns regarding this plan of care. Physician Signature: Date: <Electronically signed by Maureen Solis PT, Cert. MDT> 09/21/18 0836 CC: Mitchell Womack MD LUCILA Signed CBC W/DIFF, AUTOMATED Collected: 09/15/2018 Status: F Source: [place] 3:43 PM [facility] REPOSITORY TYPE CODE TESTS RESULT OUT OF RANGE REFERENCE UNITS LAB L100.1000 4.4-11.0 K/mm3 Normal WBC 8.4 LAB L100.1200 4.2-5.4 M/mm3 Low RBC 3.41 LAB L100.1300 12.0-15.0 g/dl Low HGB 10.9 LAB L100.1400 37-47 % Low HCT 35.5 LAB L100.1500 81-99 fL High MCV 104.1 LAB L100.1600 27.0-32.0 pg Normal MCH 32.0 LAB L100.1700 32-36 g/gl Low MCHC 30.7 LAB L100.1810 11.6-14.6 % High RDW CV 16.5 LAB L100.1820 35.1-43.9 fl High RDW SD 60.3 LAB L100.1900 150-450 K/mm3 Normal PLT 188 LAB L100.2000 6.2-12.0 fl Normal MPV 10.0 LAB L100.2100 47-70 % High NEUT% 77.6 LAB L100.2200 19-41 % Low LY% 14.5 LAB L100.2300 0-10 % Normal MONO% 6.2 LAB L100.2400 0-5 % Normal EO% 1.2 LAB L100.2500 0-1 % Normal BASO% 0.1 LAB L100.2550 0.0-0.9 % Normal IM GRAN % 0.400 Result Comment: IG% - Immature Granulocytes (promyelocytes, myelocytes and metamyelocytes) > 1% indicates that a LEFT SHIFT is Present. LAB L100.2620 2.0-7.7 X10 3/uL Normal Absolute Neut 6.5 LAB L100.2720 0.83-4.51 X10 3/ul Normal Absolute Lymph 1.21 Performed By: #### L100.0100 #### [facility] [address], [address] VITAMIN D,25 HYDROXY Collected: 09/15/2018 Status: F Source: [place] 3:43 PM [facility] REPOSITORY TYPE CODE TESTS RESULT OUT OF RANGE REFERENCE UNITS LAB L506.1000 29.95-100.01 ng/mL Normal Vitamin D 34.8 25-OH Result Comment: Vitamin D 25(OH) Status Range Deficiency <20 ng/mL (50nmol/L) Insuffciency 20 - 30 ng/mL (50 - 75 nmol/L) Sufficiency 30 - 100 ng/mL (75 - 250 nmol/L) Toxicity >100 ng/mL (>250 nmol/L) Performed By: #### L506.1000 #### [facility] [address] [place], [place], [address] COMPREHENSIVE METABOLIC Collected: 09/15/2018 Status: F Source: [place] 3:43 PM [facility] REPOSITORY TYPE CODE TESTS RESULT OUT OF RANGE REFERENCE UNITS LAB L501.0100 74-106 mg/dL High GLU 115 Result Comment: Fasting Glucose result from 100 to 125 mg/dL suggests IMPAIRED HOMEOSTASIS per A.D.A. criteria. Please note revised GLUCOSE reference range effective 2017. LAB L501.1000 7-18 mg/dL High BUN 45 LAB L501.1100 0.55-1.02 mg/dL High CREAT,SERUM 7.30 Result Comment: The validity of the calculated GFR AND GFRAA in patients over 70 years has not been determined. Clinical correlation is essential. LAB L501.1110 >60 mL/min Low EST GFR 6 Result Comment: Non- GFR Calc LAB L501.1115 >60 mL/min Low EST GFR - AA 8 Result Comment: GFR Calc LAB L501.1300 10-20 RATIO Low BUN/CRE 6.2 LAB L501.1500 6.4-8.2 g/dL Normal T PROT 7.5 LAB L501.1800 3.2-5.0 g/dL Low ALB 3.1 LAB L501.1950 2.2-4.2 g/dL High GLOB 4.4 LAB L501.2000 0.9-2.4 RATIO Low A/G 0.7 LAB L501.2200 8.5-10.1 mg/dL Normal CA 8.8 LAB L501.4100 15-37 U/L Normal AST 35 LAB L501.4305 45-117 U/L Normal ALK P 90 LAB L501.4405 13-56 U/L Normal ALT 19 LAB L501.4600 0.20-1.00 mg/dL Normal T BILI 0.50 LAB L501.5300 136-145 mmol/L Normal NA 141 LAB L501.5600 3.5-5.1 mmol/L Normal K 5.1 LAB L501.5900 98-107 mmol/L Normal CL 105 LAB L501.6100 21.0-32.0 mmol/L Normal CO2 27.0 LAB L501.6200 5-15 Normal GAP 9 Performed By: #### L500.4050, L501.9520 #### [facility] [address] [place], [address] THYROID STIM HORMONE Collected: 09/15/2018 Status: F Source: [place] ([facility]) 3:43 PM [facility] REPOSITORY TYPE CODE TESTS RESULT OUT OF RANGE REFERENCE UNITS LAB L501.9520 0.358-3.74 uIU/mL Normal TSH 0.86 Performed By: #### L500.4050, L501.9520 #### [facility] [address] [place], [address] 12 LEAD ELECTROCARDIOGRAM Observed: 09/12/2018 Status: F Source: [place] 12:53 PM [facility] REPOSITORY [facility] Cardiovascular Services [address] [place] [address] 12 Lead EKG 09/09/18 1625 MR#: [id number] Acct: [id number] Name: PAVITHRA PAINTER Rep #: [id number] : 1970 48 From: Eren Calvillo MD Attending Dr: Status: DEP ER Ordering Dr: Federica Fish MD Date: 09/09/18 Location: ED Sex: F A Admitted: Test Reason : HYPOGLYCEMIA Blood Pressure : / mmHG Vent. Rate : 091 BPM Atrial Rate : 091 BPM P-R Int : 156 ms QRS Dur : 090 ms QT Int : 362 ms P-R-T Axes : 053 026 086 degrees QTc Int : 445 ms Normal sinus rhythm Nonspecific ST and T wave abnormality Abnormal ECG Confirmed by EREN CALVILLO MD ([id number]), senior editor CESAR SIMEON ([id number]) on 09/12/2018 12:52:40 PM Referred By: LD Confirmed By:EREN CALVILLO MD 09/12/18 1252 Date Eren Calvillo MD CC: Federica Fish MD; Mitchell Womack MD Signed EMERGENCY DEPARTMENT Observed: 09/09/2018 Status: F Source: [place] SUMMARY 11:46 PM [facility] REPOSITORY [facility] Medical Records Department [address] [place] [address] Emergency Department Summary 09/09/18 1558 MR#: [id number] Acct: [id number] Name: PAVITHRA PAINTER Rep #: [id number] : 1970 48 From: Federica Fish MD PCP: Mitchell Womack MD, Chi Status: DEP ER - ER Visit Summary Date of Service: 09/09/18 Chief Complaint: Hypoglycemia History of Present Illness: The patient is a 48 F who presents from hemodialysis for an episode of hypoglycemia. Patient completed dialysis, and staff noted she was unresponsive. They checked her blood sugar and it was 43. EMS was called. Patient was responding to them. They gave her intramuscular glucagon and had a repeat check of 53. They then gave oral glucose. Patient is currently denying any complaints, including chest pain, shortness of breath, abdominal pain, nausea or vomiting, cough, congestion. She does make a small amount of urine. Physical Examination: Vital signs: afebrile, hemodynamically stable, no hypoxia on room air General: well nourished, well developed, in no distress Skin: warm, dry, no rash, no pallor HEENT: normocephalic and atraumatic; PERRL, EOMI, diffuse conjunctival injection, moist mucous membranes Cardiovascular: regular rate and rhythm without murmurs, no peripheral edema, 2+ pulses all distal extremities Respiratory: No increased work of breathing, lungs are clear to auscultation bilaterally, no rales, rhonchi or wheezing Abdominal: Abdomen is soft, nontender with normoactive bowel sounds, no guarding or rebound, no masses MSK: Moves all extremities, no deformities, generalized weakness Neuro: Awake and alert, oriented 4, answering all questions appropriately. No facial droop, sensation and motor function intact and symmetric Test Results: Abnormal Lab Results WBC 6.4 RBC 3.55 L Hgb 11.5 L Hct 36.8 L MCV 103.7 H MCH 32.4 H MCHC 31.3 L RDW 16.6 H RDW Differential 61.6 H Clinical Impression(s) from Imaging Studies Chest X-Ray 09/09/18 16:05 IMPRESSION: No acute thoracic pathology. Electronically Signed: Alfredo Burrows, at 16:47 EST Tel , Service support , Medications Given Discontinued Medications Dextrose (D50w Syringe) 12.5 gm IV X1 ONE Stop: 09/09/18 16:21 Last Admin: 09/09/18 17:11 Dose: Not Given Emergency Department Course and Treatment: Patient presents for hypoglycemia at dialysis. Patient had received glucagon and oral glucose by EMS. She was still hypoglycemic on arrival in the emergency department. He showed no leukocytosis. Glucose on BMP was 80. Urine negative for infection. Troponin was within normal limits. EKG showed no ischemic changes. Patient had improvement of her hyperglycemia without any D50 required. On reevaluation she was sitting upright, interactive, answering all questions appropriately, and stated she felt much better and at her baseline. She was ready to go home. She was given a snack prior to discharge. Return precautions given. Treatment Plan: [] Disposition: [] Impression: Hypoglycemic episode This note was generated with SeeJay dictation software. It may contain incorrect words, spelling, and punctuation that were not noted in review of the chart prior to signing ED Disposition - Plan for ED Patient: Disposition: Home or Assisted Living Chief Complaint: Hypoglycemia Instructions: ED Diabetes Hypoglycemia Oral Agent Referrals: Mitchell Womack Chi, MD [Primary Care Provider] - 1-2 Days if not improving Additional Instructions: Continue all your medications, including your diabetes medications, as prescribed. Make sure to eat a good protein and complex carbohydrate containing meal tonight. If you have any worsening of your condition or any new concerning symptoms, please return immediately to the emergency department for another evaluation. What to do if you have Problems For any increased pain, shortness of breath, bleeding, nausea or vomiting, chest pain, or any unexpected problems, contact your Primary Care Provider. Call [facility] ([phone]) or report to the closest Emergency Room. Call 911 if necessary. 09/09/18 2346 <Electronically signed by Federica Fish MD> Date Federica Fish MD Cosigner Signature (If Indicated): Date CC: Mitchell Womack MD DISCHARGE INSTRUCTION Observed: 09/09/2018 Status: F Source: [place] 11:33 PM [facility] REPOSITORY [facility] Medical Records Department [address] [place] [address] Discharge Instruction 09/09/18 1844 MR#: [id number] Acct: [id number] Name: PAVITHRA PAINTER Rep #: [id number] : 1970 48 From: Federica Fish MD PCP: Mitchell Womack MD, Chi Status: DEP ER ED Disposition - Plan for ED Patient: Disposition: Home or Assisted Living Chief Complaint: Hypoglycemia Instructions: ED Diabetes Hypoglycemia Oral Agent Referrals: Mitchell Womack Chi, MD [Primary Care Provider] - 1-2 Days if not improving Additional Instructions: Continue all your medications, including your diabetes medications, as prescribed. Make sure to eat a good protein and complex carbohydrate containing meal tonight. If you have any worsening of your condition or any new concerning symptoms, please return immediately to the emergency department for another evaluation. What to do if you have Problems For any increased pain, shortness of breath, bleeding, nausea or vomiting, chest pain, or any unexpected problems, contact your Primary Care Provider. Call [facility] ([phone]) or report to the closest Emergency Room. Call 911 if necessary. 09/09/18 4901 <Electronically signed by Federica Fish MD> Date Federica Fish MD Cosigner Signature (If Indicated): Date CC: Mitchell Womack MD URINALYSIS, COMPLETE Collected: 09/09/2018 Status: C Source: [place] 5:05 PM [facility] REPOSITORY Order Comment: How was Urine Obtained? [employer] TO SPECIFY TYPE CODE TESTS RESULT OUT OF RANGE REFERENCE UNITS LAB L400.3000 Yellow COLOR Normal Yellow LAB L400.3050 Clear Sl Normal CLARITY Cldy LAB L400.3200 Normal mg/dl High 50 GLUCOSE, [...] /hpf 0 Normal MUCUS, URINE SEEN LAB L400.4900 1+ Normal AMORPHOUS PHOS Performed By: #### L400.0001 #### [facility] [address] [place], [address] BEDSIDE GLUCOSE Collected: 09/09/2018 Status: F Source: [place] 4:19 PM [facility] REPOSITORY TYPE CODE TESTS RESULT OUT OF RANGE REFERENCE UNITS LAB L501.080 70-110 mg/dL Normal BEDSIDE GLU 100 Result Comment: MANAGEMENT OF PATIENT CARE PER NURSING PROTOCOL Performed By: #### L501.080 #### [facility] Point of Care [address] [place] [address] CBC W/DIFF, AUTOMATED Collected: 09/09/2018 Status: F Source: [place] 4:05 PM [facility] REPOSITORY TYPE CODE TESTS RESULT OUT OF RANGE REFERENCE UNITS LAB L100.1000 4.4-11.0 K/mm3 Normal WBC 6.4 LAB L100.1200 4.2-5.4 M/mm3 Low RBC 3.55 LAB L100.1300 12.0-15.0 g/dl Low HGB 11.5 LAB L100.1400 37-47 % Low HCT 36.8 LAB L100.1500 81-99 fL High MCV 103.7 LAB L100.1600 27.0-32.0 pg High MCH 32.4 LAB L100.1700 32-36 g/gl Low MCHC 31.3 LAB L100.1810 11.6-14.6 % High RDW CV 16.6 LAB L100.1820 35.1-43.9 fl High RDW SD 61.6 LAB L100.1900 150-450 K/mm3 Normal PLT 166 LAB L100.2000 6.2-12.0 fl Normal MPV 10.2 LAB L100.2100 47-70 % Normal NEUT% 65.2 LAB L100.2200 19-41 % Normal LY% 24.2 LAB L100.2300 0-10 % Normal MONO% 8.3 LAB L100.2400 0-5 % Normal EO% 1.7 LAB L100.2500 0-1 % Normal BASO% 0.3 LAB L100.2550 0.0-0.9 % Normal IM GRAN % 0.300 Result Comment: IG% - Immature Granulocytes (promyelocytes, myelocytes and metamyelocytes) > 1% indicates that a LEFT SHIFT is Present. LAB L100.2620 2.0-7.7 X10 3/uL Normal Absolute Neut 4.1 LAB L100.2720 0.83-4.51 X10 3/ul Normal Absolute Lymph 1.54 Performed By: #### L100.0100 #### [facility] [address] [place], [address] COMPREHENSIVE METABOLIC Collected: 09/09/2018 Status: F Source: [place] [facility] 4:05 PM [facility] REPOSITORY TYPE CODE TESTS RESULT OUT OF RANGE REFERENCE UNITS LAB L501.0100 74-106 mg/dL Normal GLU 80 Result Comment: Please note revised GLUCOSE reference range effective 2017. LAB L501.1000 7-18 mg/dL High BUN 20 LAB L501.1100 0.55-1.02 mg/dL High CREAT,SERUM 3.30 Result Comment: The validity of the calculated GFR AND GFRAA in patients over 70 years has not been determined. Clinical correlation is essential. LAB L501.1110 >60 mL/min Low EST GFR 16 Result Comment: Non- GFR Calc LAB L501.1115 >60 mL/min Low EST GFR - AA 19 Result Comment: GFR Calc LAB L501.1255 ml/min Normal Estimated CRCL 18.39 LAB L501.1300 10-20 RATIO Low BUN/CRE 6.1 LAB L501.1500 6.4-8. g/dL High 2 T PROT 8.3 LAB L501.1800 3.2-5. g/dL Normal 0 ALB 3.6 LAB L501.1950 2.2-4. g/dL High 2 GLOB 4.7 LAB L501.2000 0.9-2. RATIO Low 4 A/G 0.8 LAB L501.2200 8.5-10 mg/dL Low .1 CA 8.2 LAB L501.4100 15-37 U/L High AST 49 LAB L501.4305 45-117 U/L Normal ALK P 113 LAB L501.4405 13-56 U/L Normal ALT 31 LAB L501.4600 0.20-1 mg/dL Normal .00 T BILI 0.80 LAB L501.5300 136-14 mmol/L Normal 5 NA 139 LAB L501.5600 3.5-5. mmol/L Normal 1 K 3.9 LAB L501.5900 98-107 mmol/L Normal CL 101 LAB L501.6100 21.0-3 mmol/L Normal 2.0 CO2 29.0 LAB L501.6200 5-15 Normal GAP 9 Performed By: #### L500.4050, L501.4010 #### [facility] [address] [place], [address] TROPONIN-I Collected: 09/09/2018 Status: F Source: [place] 4:05 PM [facility] REPOSITORY TYPE CODE TESTS RESULT OUT OF RANGE REFERENCE UNITS LAB L501.4010 <0.045 ng/mL Normal 0.034 TROPONIN-I Result Comment: TROPONIN-I EXPECTED VALUES <0.045 Negative 0.045 - 0.590 Consistent with Cardiac Damage > OR = 0.600 Critical Value Not every elevated troponin is indicative of HI. These values should be used with clinical judgement in examining the patient's clinical picture for diagnosis. To establish a diagnosis of HI versus myocardial injury, there must be a demonstrated rise and/or fall in the troponin values, in addition to ischemic symptoms, EKG changes, new regional wall motion abnormality, and/or angiographical evidence. PLEASE NOTE: REFERENCE RANGES EDITED 18 Performed By: #### L500.4050, L501.4010 #### [facility] [address] [place], [address] CHEST 1 VIEW Observed: 09/09/2018 Status: F Source: [place] (PORTABLE) 3:58 PM [facility] REPOSITORY [facility] Imaging Services [address] [place] [address] Chest 1 View (Portable) MR#: [id number] Acct: [id number] Name: PAVITHRA PAINTER Rep #: [id number] : 1970 F 48 From: Alfredo Burrows MD PCP: Vu GARCIA,NOSTROMO ICT Status: REG ER Study: Chest 1 View (Portable) Date of Exam: 09/09/18 Exam# [id number] Ordering Dr: Federica Fish MD STUDY: X-RAY CHEST REASON FOR EXAM: Female, 48 years old. Hypoglycemia TECHNIQUE: Frontal view of the chest COMPARISON: 08/13/2018 FINDINGS: There is a right-sided central catheter with its tip in the superior vena cava. The lungs are clear. There are no pleural effusions. There is no pneumothorax. The heart is normal in size. The visualized osseous structures are within normal limits. RAD/Chest 1 View (Portable) IMPRESSION: No acute thoracic pathology. Electronically Signed: Alfredo Burrows, at 16:47 EST Tel , Service support , CC: Federica Fish MD; Mitchell Womack MD Individual Pension Adviser: Signed BEDSIDE GLUCOSE Collected: 09/09/2018 Status: F Source: [place] 3:57 PM [facility] REPOSITORY TYPE CODE TESTS RESULT OUT OF REFERENCE UNITS RANGE LAB L501.080 70-110 mg/dL Low BEDSIDE GLU 67 Result Comment: MANAGEMENT OF PATIENT CARE PER NURSING PROTOCOL Performed By: #### L501.080 #### [facility] Point of Care [address] [place], [place] [address] HLA CLASS I AB Collected: 09/08/2018 Status: F Source: [facility], 1:48 PM [facility] REPOSITORY TYPE CODE TESTS RESULT OUT OF REFERENCE UNITS RANGE LAB HLA1S(LOINC ) HLA CLASS SEE COMMENT I AB SCREEN,FC Result Comment: HLA CLASS I AB SCREEN,FLOW CYTOMETRY SEE SEPARATE REPORT. Performed By: #### HLAS1 #### [facility] [address] [place] [address] HLA CLASS II AB Collected: 09/08/2018 Status: F Source: [facility] 1:48 PM [facility] REPOSIT[facility] TYPE CODE TESTS RESULT OUT OF REFERENCE UNITS RANGE LAB HLA2S(LOINC ) HLA CLASS SEE COMMENT II AB SCREEN,FC Result Comment: HLA CLASS II AB SCREEN,FLOW CYTOMETRY SEE SEPARATE REPORT. Performed By: #### HLAS2 #### [facility] [address] [place] [address] OFFICE VISIT Observed: 08/30/2018 Status: UNK Source: [facility] (CARDIOLOGY) 8:00 AM [facility]ITALS REPOSITORY No report was sent TRANSPLANT SW Observed: 08/26/2018 Status: UNK Source: [facility] ASSESSMENT UPDATE 3:13 PM [facility]OS[facility]ITALS REPOSITORY Note Body SW met with pt, pt's mother, and pt's brother, for psychosocial update. Pt is alert and oriented x3. She was pleasant and engaged. Pt had a flat affect. Pt's mother does not speak Singaporean, thus did not speak. Pt's brother speaks Singaporean. He was quiet and answered all questions. She states she was hospitalized twice in 2018 - Sep for pneumonia and Aug for [...] ESTABLISHED VISIT Observed: 08/25/2018 Status: UNK Source: [facility] (NEPHROLOGY) 8:40 PM [facility]ITALS REPOSITORY Chief Complaint Review of Kidney Transplant Listing Status History of Present Illness REFERRING DOCTOR: Dr. Arline Ambriz -DEMOGRAPHICS- Ethnicity: Gender: female -PRIMARY DISEASE- Primary Dx: SLE [x] DIABETES: [x] Type 2 ONSET: age 32 Insulin required: yes (Lantus 25 units AM) -DIALYSIS HISTORY- [x] Hemodialysis Start Date: 11/04/16 Unit: [facility] [place] [x] MWF -ACCESS HISTORY- Current Access: catheter [...] mother and brother but does not have radio time salesperson support. The patient has multiple complications from [...] 24 Hour; TAKE 1 CAPSULE DAILY; Therapy: (Recorded:[id number]) to Recorded Dispense: 0 Days ; #: Sufficient Capsule Extended Release 24 Hour; Refill: 0; BEHZAD = N; Record; Msg to Pharmacy: as needed; Last Updated By: Mariel Mccray; 04/29/2016 2:32:46 PM Atorvastatin Calcium 20 MG Oral Tablet; TAKE 1 TABLET DAILY DIRECTED; Therapy: (Recorded:[id number]) to Recorded Dispense: 0 Days ; #: Sufficient Tablet; Refill: 0; BEHZAD = N; Record; Last Updated By: Mariel Mccray; 03/31/2016 3:33:47 PM Baclofen 10 MG Oral Tablet; TAKE 1 TABLET EVERY 8 HOURS NEEDED FOR MUSCLE SPASM; Therapy: (Recorded:[id number]) to Recorded Dispense: 0 Days ; #: Sufficient Tablet; Refill: 0; BEHZAD = N; Record; Last Updated By: Mariel Mccray; 03/31/2016 3:33:48 PM Calcium Acetate 667 MG CAPS; TAKE 1 CAPSULE 3 TIMES DAILY WITH MEALS; Therapy: 29Jul2017 to Recorded Dispense: 0 Days [...] SPARINGLY TO AFFECTED AREA(S) TWICE DAILY; Therapy: (Recorded:[id number]) to Recorded Dispense: 0 Days ; #: [...] 100 UNIT/ML Subcutaneous Solution; USE DIRECTED; Therapy: (Recorded:[id number]) to Recorded Dispense: 0 Days ; #: Sufficient ML; Refill: 0; BEHZAD = N; Record; Last Updated By: Mariel Mccray; 03/31/2016 3:33:48 PM Ketoconazole SHAM; APPLY DIRECTED; Therapy: (Recorded:[id number]) to Recorded Dispense: 0 Days ; #: [...] Ointment; APPLY TO AFFECTED AREAS DIRECTED; Therapy: (Recorded:[id number]) to Recorded Dispense: 0 Days ; #: [...] Oral Tablet; TAKE 1 TABLET DAILY; Therapy: (Recorded:[id number]) to Recorded Dispense: 0 Days ; #: Sufficient Tablet; Refill: 0; BEHZAD = N; Record; Last Updated By: Mareil Mccray; 03/31/2016 3:33:48 PM NIFEdipine ER 90 MG Oral Tablet Extended Release 24 Hour; TAKE 1 TABLET DAILY; Therapy: 29Jul2017 to Recorded Dispense: 0 Days ; #: Sufficient Tablet Extended Release 24 Hour; Refill: 0; BEHZAD = N; Record; Last Updated By: Lashon Estes; 07/29/2017 4:38:01 PM Omeprazole 40 MG Oral Capsule Delayed Release; TAKE 1 CAPSULE TWICE DAILY; Therapy: (Recorded:[id number]) to Recorded Dispense: 0 Days ; #: [...] 4:41:37 PM Retin-A GEL; APPLY DIRECTED; Therapy: (Recorded:[id number]) to Recorded Dispense: 0 Days ; #: Sufficient GM; Refill: 0; BEHZAD = N; Record; Last Updated By: Mariel Mccray; 03/31/2016 3:33:48 PM Tradjenta 5 MG Oral Tablet; TAKE 1 TABLET DAILY; Therapy: [id number] to Recorded Dispense: 0 Days ; #: Sufficient Tablet; Refill: 0; BEHZAD = N; Record; Last Updated By: Lashon Estes; 07/29/2017 4:27:36 PM Vitamin D3 28132 UNIT Oral Capsule; Therapy: (Recorded:[id number]) to Recorded Dispense: 0 Days ; #: Sufficient Capsule; Refill: 0; BEHZAD = N; Record; Msg to Pharmacy: 1 tab/every 7 days; Last Updated By: Mariel Mccray; 03/31/2016 3:33:48 PM Zofran 4 MG Oral Tablet; Therapy: (Recorded:[id number]) to Recorded Dispense: 0 Days ; #: Sufficient Tablet; Refill: 0; BEHZAD = N; Record; Msg to Pharmacy: Take 1-2 tablets every 8 hr.; Last Updated By: Mariel Mccray; 04/29/2016 2:32:46 PM Vitals Vital Signs Recorded: 25Lbd9003 02:06PM Aollskpnhet99.4 F, Oral Heart Rate92 Fjdrorzy347 Iihrqpmzw33 Height5 ft 4 in Sdzdmr627 lb 11.2 oz BMI Uqnqzpdpol07.87 BSA Calculated1.73 O2 Acggxtwens90, RA Physical Exam Constitutional: Abnormal appears older [...] Additional Findings: right eye gait. Results/Data CROSSMATCH, [id number] 04:59PMsanthoshkelLori Test NameResultFlagReference Crossmatch, FreezeCOMMENT SEE SEPARATE REPORT. Diagnoses/Problems Pre-transplant evaluation for kidney transplant (V72.83) (Z01.818) Patient Discussion/Summary [x] Available Laboratory Data was reviewed [x] Available Radiology Images were reviewed Plan: -Patient should follow up with her recreational sports director for evaluation of her DM. -Patient should follow up with clinic in 3 months, pending narcolepsy treatment and improvement of her sleep/wake cycles. By signing my name below, I, Betina Oscar, attest that this documentation has been prepared under the direction and in the presence of Dr.Aparna Diaz. All medical record entries made by the Efremibe were at my direction and personally dictated by me. I have reviewed the chart and agree that the record accurately reflects my personal performance of the h istory, physical exam, discussion and plan. TH CHEST 2 VIEW PA Observed: 08/25/2018 Status: F Source: [facility] 4:42 PM HOSPITALS REPOSITORY Patient Name: PAVITHRA PAINTER STUDY: TH CHEST 2 VIEW PA AND LAT; 08/25/2018 4:42 pm INDICATION: Signs/Symptoms: pre-kidney transplant. COMPARISON: Chest radiograph dated 08/10/2017. ACCESSION NUMBER(S): [id number] ORDERING CLINICIAN: LORI PFEIFFER FINDINGS: The tip [...] as stated. This study was interpreted at [facility], [place], [place]. Electronically signed by: KANDACE NAVARRETE MD HEPATITIS B SURF AB Collected: 08/25/2018 Status: F Source: [facility] 3:59 [facility] REPOSITORY TYPE CODE TESTS RESULT OUT OF RANGE REFERENCE UNITS LAB HABF2(LOINC <10 mIU/mL ) HEP B < 3.1 SURF AB Result Comment: INTERPRETIVE CRITERIA: <10 mIU/mL....NONREACTIVE >=10 mIU/mL...REACTIVE . Patients receiving more than 5 mg/day of biotin may have interference in test results. A sample should be taken no sooner than eight hours after previous dose. Contact [phone] for additional information. LAB SOURCE(LOINC) Lab Specimen Source Performed By: #### HBAB3 #### [facility] [address] [place] [address] HEPATIC FUNCTION Collected: 08/25/2018 Status: F Source: [facility] 3:59 [facility] REPOSITORY TYPE CODE TESTS RESULT OUT [...] - 8.2 g/dL TOTAL PROTEIN 6.9 LAB SOURCE(LOINC) Lab Specimen Source Performed By: #### HEPFP #### [facility] [address] [place] [address] SYPHILIS IGG Collected: 08/25/2018 Status: F Source: [facility] 3:59 [facility] REPOSITORY TYPE CODE TESTS RESULT OUT OF REFERENCE UNITS RANGE LAB SYPHG(LOIN NONREACTIVE C) SYPHILIS IGG NON REACTIVE Result Comment: Patients receiving more than 5 mg/day of biotin may have interference in test results. A sample should be taken no sooner than eight hours after previous dose. Contact [phone] for additional information. LAB SOURCE(LOINC) Lab Specimen Source Performed By: #### SYPH #### [facility] [address] [place] [address] HEPATITIS B SURFACE AG Collected: 08/25/2018 Status: F Source: [facility] 3:59 [facility] REPOSITORY TYPE CODE TESTS RESULT OUT OF REFERENCE UNITS RANGE LAB HAGFN(LOIN NONREACTIVE C) HEP.B SURFACE NONREACTIVE AG Result Comment: Patients receiving more than 5 mg/day of biotin may have interference in test results. A sample should be taken no sooner than eight hours after previous dose. Contact [phone] for additional information. LAB SOURCE([facility]) Lab Specimen Source Performed By: #### HBSAG #### [facility] [address] [place] [address] HEPATITIS C AB Collected: 08/25/2018 Status: F Source: [facility] 3:59 [facility] REPOSITORY TYPE CODE TESTS RESULT OUT OF REFERENCE UNITS RANGE LAB HCVFN(LOIN NONREACTIVE C) HEPATITIS C AB NON-REACTIVE Result Comment: Patients receiving more than 5 mg/day of biotin may have interference in test results. A sample should be taken no sooner than eight hours after previous dose. Contact [phone] for additional information. LAB SOURCE([facility]) Lab Specimen Source Performed By: #### HCVAB #### [facility] [address] [place] [address] HEPATITIS B CORE Collected: 08/25/2018 Status: F [facility]: [facility] 3:59 [facility] REPOSITORY TYPE CODE TESTS RESULT OUT OF REFERENCE UNITS RANGE LAB HCTFN(LOIN NONREACTIVE C) NONREACTIVE HEP. B CORE AB-TOTAL Result Comment: Patients receiving more than 5 mg/day of biotin may have interference in test results. A sample should be taken no sooner than eight hours after previous dose. Contact [phone] for additional information. LAB SOURCE([facility]) Lab Specimen Source Performed By: #### HBCRT #### [facility] [address] [place] [address] T-SPOT TB Collected: 08/25/2018 Status: F Source: [place] 3:59 PM [facility] REPOSITORY TYPE CODE TESTS RESULT OUT OF [...] Passed COUNT Performed By: #### TSPOT #### [email or web address] [address] [place] [address] ECHOCARDIOGRAM Observed: 08/25/2018 Status: F Source: [facility] 2:56 PM [facility], [address] [place] [address] and TRANSTHORACIC ECHOCARDIOGRAM REPORT Patient Name: PAVITHRA PAINTER Reading Physician: [id number] Yo Thurston MD Study Date: 08/25/2018 Referring Physician: Lori Pfeiffer MD MRN/PID: [id number] PCP: Accession/Order#: [id number] Department Location: [facility] Non Invasive Date of : 1970 Fellow: Gender: F Nurse: Admit Date: Termite Renewal Inspector: Jovanna Becerril [facility] Admission Status: Outpatient Additional Staff: Height: 162.56 cm CC Report to: Weight: 63.50 kg Study Type: Echocardiogram BSA: 1.68 m2 Blood Pressure: 175 /93 mmHg Diagnosis/ICD: Z01.818-Encounter for other preprocedural examination Indication: Pre-transplant evaluation for kidney transplant Procedure/CPT: Echo Complete w Full [id number] Patient History: Pertinent History: DM, HTN, Renal [...] cm/s AORTA: Asc Ao Diam 3.27 cm [id number] Yo Thurston MD Electronically signed on 08/25/2018 at 5:34:21 PM Final 12 LEAD ELECTROCARDIOGRAM Observed: 08/18/2018 Status: F Source: [facility] 2:16 PM [facility] REPOSITORY [facility] Cardiovascular Services [address] [place] [address] 12 Lead EKG 08/14/18 0420 MR#: [id number] Acct: [id number] Name: PAVITHRA PAINTER Marcos Rep #: [id number] : 1970 47 From: Eren Calvillo MD Attending Dr: Yokasta Burgos Status: DIS IN Ordering Dr: Lele Garcia MD Date: 08/14/18 Location: [facility] Sex: F A Admitted: 08/12/18 Test Reason [...] T wave abnormality Abnormal ECG Confirmed by DALE GARCIA, EREN ([id number]), senior editor CESAR SIMEON ([id number]) on 08/18/2018 2:16:06 PM Referred By: DR CERON Confirmed By:EREN CALVILLO MD 08/18/18 1416 Date Eren Calvillo MD CC: Yokasta Burgos; Lele Garcia; Mitchell Womack MD Signed 12 LEAD ELECTROCARDIOGRAM Observed: 08/18/2018 Status: F Source: [place] 2:14 PM [facility] HOSPITAL REPOSITORY [facility] Cardiovascular Services [address] [place] [address] 12 Lead EKG 08/15/18 1151 MR#: [id number] Acct: [id number] Name: PAVITHRA PAINTER Rep #: [id number] : 1970 47 From: Eren Calvillo MD Attending Dr: Yokasta Burgos Status: DIS IN Ordering Dr: Yokasta Burgos Date: 08/15/18 Location: [facility] Sex: F A Admitted: 08/12/18 Test Reason [...] T wave abnormality Abnormal ECG Confirmed by DALE GARCIA, EREN ([id number]), senior editor CESAR SIMEON ([id number]) on 08/18/2018 2:13:32 PM Referred By: [facility] Confirmed By:EREN CALVILLO MD 08/18/18 1413 Date Eren Calvillo MD CC: Yokasta Burgos; Mitchell Womack MD Signed SCREENING MAMM (CAD), Observed: 08/18/2018 Status: F Source: [place] BILAT 12:17 PM [facility] REPOSITORY [facility] Imaging Services [address] [place] [address] SCREENING MAMM (CAD), BILAT MR#: [id number] Acct: [id number] Name: PAVITHRA PAINTER Rep #: [id number] : 1970 F 48 From: Jonathan Garcia MD PCP: Mitchell Womack MD, Chi Status: REG CLI Study: SCREENING MAMM (CAD), BILAT Date of Exam: 08/18/18 Exam# [id number] Ordering Dr: Mitchell Womack MD MAMMOGRAPHY - [...] delay biopsy of a clinically suspicious abnormality. [id number] Electronically Signed: Jonathan Garcia MD at 13:36 EST Tel [phone], Service support , CC: Mitchell Womack MD Individual Pension Adviser: Signed 12 LEAD ELECTROCARDIOGRAM Observed: 2018 Status: F Source: [place] 3:44 PM [facility] REPOSITORY [facility] Cardiovascular Services [address] [place] [address] 12 Lead EKG 08/12/18 1643 MR#: [id number] Acct: [id number] Name: PAVITHRA PAINTER Rep #: [id number] : 1970 47 From: Eren Calvillo MD Attending Dr: Yokasta Burgos Status: DIS IN Ordering Dr: Aminata Bridges DO Date: 08/12/18 Location: [facility] Sex: F A Admitted: 08/12/18 Test Reason [...] Abnormal ECG Confirmed by DALE GARCIA, EREN ([id number]), senior editor CESAR SIMEON ([id number]) on 2018 3:43:46 PM Referred By: RAJEEV Confirmed By:EREN CALVILLO MD 08/16/18 1543 Date Eren Calvillo MD CC: Yokasta Burgos; Aminata Bridges DO; Mitchell Womack MD Signed CONSULTATION Observed: 08/15/2018 Status: F Source: [place] 6:26 PM [facility] REPOSITORY [facility] Medical Records Department [address] [place] [address] Consultation 08/13/18 1338 MR#: [id number] Acct: [id number] Name: PAVITHRA PAINTER Rep #: [id number] : 1970 47 From: Arline Ambriz DO PCP: Mitchell Womack MD, Chi Status: DIS IN Y Location: [place] [id number] Consultation - Renal 08/13/18 PCP/ Referring MD: Requesting physician: [] Primary care physician: Mitchell Womack Reason for Consultation:: ESRD renal mgmt - History of Present Illness History of Present Illness: The patient is a 47 year old F with ESRD due to lupus, diabetes HD MWF at [place] unit brought in by family for change [...] AVF placed recently by Dr. Lau at [facility]. Drainage from incision site grew Serratia [...] Atorvastatin Calcium (Lipitor) 20 mg PO QHS [facility] Last Admin: 08/13/18 03:03 Dose: 20 mg Calcitriol (Rocaltrol) 0.25 mcg PO ONCE [facility] Dextrose (D50w Syringe) 0 gm IV X1 PRN; Protocol PRN Reason: Hypoglycemia Last Admin: 08/13/18 06:42 Dose: 25 gm Duloxetine HCl (Cymbalta) 120 mg PO DAILY [facility] Last Admin: 08/13/18 12:37 Dose: Not Given Ergocalciferol (Vitamin D) 50,000 unit PO QMONTH [facility] Famotidine (Pepcid) 40 mg PO DAILY [facility] Fluticasone Propionate (Flonase Nasal Calera) 2 spray NASAL DAILY [facility] Last Admin: 08/13/18 12:37 Dose: Not Given Glucagon () 1 mg IM .X1 PRN PRN Reason: Hypoglycemia Heparin Sodium (Porcine) (Heparin Na) 5,000 unit SC Q8 [facility] Last Admin: 08/13/18 12:37 Dose: Not Given Hydralazine HCl (Apresoline Iv) 5 mg IV Q4H PRN PRN PRN Reason: SBP GREATER THAN 170 Last Admin: 08/13/18 06:09 Dose: 5 mg Hydrocortisone Sodium Succinate (Solu-Cortef) 50 mg IV Q8 [facility] Hydroxychloroquine Sulfate (Plaquenil) 200 mg PO BIDCM [facility] Last Admin: 08/13/18 12:36 Dose: Not Given Sodium Chloride () 250 mls @ 15 mls/hr IV .[id number] PRN PRN Reason: SALINE FLUSH Ampicillin Sodium/Sulbactam (Sodium 3 gm/ Sodium Chloride) 112 mls @ 150 mls/hr IV Q8 [facility] Lactic Acid (Lac-Hydrin, Amlactin) 1 applic TOPICAL DAILY PRN PRN Reason: DRY SKIN Linagliptin (Tradjenta) 5 mg PO DAILY [facility] Magnesium Hydroxide (Milk Of Magnesia) 30 ml PO DAILY PRN PRN PRN Reason: Constipation Methylphenidate HCl (Ritalin (G)) 10 mg NG Q8 [facility] Last Admin: 08/13/18 06:07 Dose: Not Given Metoprolol Tartrate (Lopressor (Beta Pippa)) 25 mg PO BID [facility] Last Admin: 08/13/18 03:02 Dose: 25 mg Montelukast Sodium (Singulair) 10 mg PO QHS [facility] Last Admin: 08/13/18 03:03 Dose: 10 mg Multivitamins (Multivitamin) 1 tablet PO DAILYCM [facility] Last Admin: 08/13/18 12:20 Dose: Not Given Non-Formulary Medication (Clindamycin Phos/Benzoyl Perox [Benzaclin Gel]) 1 applic TOPICAL DAILY [facility] Ondansetron HCl (Zofran) 4 mg IV Q8H PRN PRN PRN Reason: NAUSEA Sevelamer Carbonate (Renvela) 2,400 mg PO TID [facility] Sodium Chloride () 5 - 15 ml [...] to 9 cm. Electronically Signed: Abiodun Johnson at 22:28 EST Tel [phone], Service support , KUB X-Ray 08/12/18 22:43 IMPRESSION: Nasogastric tube with tip at the GE junction. No significant interval changes. Electronically Signed: Abiodun DO Alex at 23:26 EST Tel [phone], Service support , KUB X-Ray 08/13/18 00:20 [...] Continue cefepime for 3 more doses 08/15/18 3076 <Electronically signed by Arline Ambriz DO> Date Arline Ambriz DO Cosigner Signature (if applicable): Date CC: Arline Ambriz DO; Cesar Sheth MD; Mitchell Womack MD Signed DISCHARGE SUMMARY Observed: 08/15/2018 Status: F Source: [place] 5:50 PM [facility] REPOSITORY [facility] Medical Records Department [address] [place] [address] Discharge Summary 08/15/18 1253 MR#: [id number] Acct: [id number] Name: PAVITHRA PAINTER Rep #: [id number] : 1970 47 From: Yokasta Burgos PCP: Vu GARCIA,Mitchell Yadav Status: ADM IN Y Location: [place] [address] Discharge Date and Diagnosis - Problem List Patient Problems: Active and Suspected Problems (Last Reviewed 08/14/18 @ 10:39 by Cesar Sheth MD) Extremity edema (Acute) Encephalopathy acute (Acute) Date of Admission: 08/12/18 Date of Discharge: 08/15/18 - Primary Discharge Diagnosis Active and Suspected Problems (Last Reviewed 08/14/18 @ 10:39 by Cesar hSeth MD) (1) Acute Encephalopathy, Suspected Multifactorial, Secondary [...] Pain Syndrome, Anxiety who presented to the [facility] ED on 08/12/18 with history of [...] recent Serratia culture per Dr. Ambriz, patient organisation and methods analyst with initiation of cefepime and continued antibiotic [...] which had been advised prior per her organisation and methods analyst. During admission MRI brain obtained with no [...] for reevaluation per her vascular surgeon in [place] within the next 2-[address] [...] within 3-5 days in addition to her organisation and methods analyst for ongoing dialysis with additionally ongoing IV cefepime given recent Serratia noted on culture approximately 1 week prior to presentation in addition to encouragement to follow-up with vascular surgery in [place]. Objective: T 98.7, heart rate 87, BP [...] arranged for HD. Please Follow Up With: [place] Vascular Surgeon When: Follow-up with your vascular surgeon within 2-3 weeks. Patient Instructions: Recognizing and Treating Wound Infection, ED Overdose Accidental Disposition: Home with Home Health Minutes spent on discharge:: 35 Patient Condition:: Stable Medical Necessity - Tobacco Use Smoking Status: Unknown if ever smoked Meaningful Use Info Meaningful Use Diagnoses (Choose all that apply): None applicable Code Visit Inpatient E AND M: 63847 Disch Hosp 08/15/18 1750 <Electronically signed by Yokasta Burgos > Date Yokasta Burgos Cosigner Signature (if applicable): Date CC: Yokasta Burgos; Mitchell Womack MD Signed VENOUS DUPLEX UPPER Observed: 08/15/2018 Status: F Source: [place] EXTREMITY 5:13 PM [facility] REPOSITORY [facility] Cardiovascular Services [address] [place] [address] Venous Duplex US, Unilateral 08/15/18 0856 MR#: [id number] Acct: [id number] Name: PAVITHRA PAINTER Rep #: [id number] : 1970 47 From: Rigo Valverde MD Attending Dr: Yokasta Burgos Status: ADM IN Ordering Dr: Lele Garcia MD Date: 08/14/18 Location: U Sex: F A Admitted: 08/12/18 Reason For [...] Lele Garcia; Mitchell Womack MD Date Dictated: 08/15/18 0856 Date Transcribed: 08/15/181711 Individual Pension Adviser: Signed DISCHARGE INSTRUCTION Observed: 08/15/2018 Status: F Source: [place] 12:53 PM [facility] REPOSITORY [facility] Medical Records Department [facility] [place] [address] Instructions for Home/Discharge Instructions 08/15/18 1236 MR#: [id number] Acct: [id number] Name: PAVITHRA PAINTER Rep #: [id number] : 1970 47 From: Yokasta Burgos PCP: [...] arranged for HD. Please Follow Up With: [place] Vascular Surgeon When: Follow-up with your vascular surgeon within 2-3 weeks. Proposed Discharge Date: 08/15/18 08/15/18 1253 <Electronically signed by Yokasta Burgos > Date Yokasta Burgos CC: Arline Ambriz DO; Cesar Sheth MD; Mitchell Womack MD BEDSIDE GLUCOSE Collected: 08/15/2018 Status: F Source: [place] 11:23 AM [facility] REPOSITORY TYPE CODE TESTS RESULT OUT OF RANGE REFERENCE UNITS LAB L501.080 70-110 mg/dL Normal BEDSIDE GLU 108 Result Comment: MANAGEMENT OF PATIENT CARE PER NURSING PROTOCOL Performed By: #### L501.080 #### [facility] Point of Care [address] [place] [address] BEDSIDE GLUCOSE Collected: 08/15/2018 Status: F Source: [place] 6:48 AM [facility] REPOSITORY TYPE CODE TESTS RESULT OUT OF RANGE REFERENCE UNITS LAB L501.080 70-110 mg/dL Normal BEDSIDE GLU 80 Result Comment: MANAGEMENT OF PATIENT CARE PER NURSING PROTOCOL Performed By: #### L501.080 #### [facility] Point of Care [address] [place] [address] BEDSIDE GLUCOSE Collected: 08/14/2018 Status: F Source: [place] 9:04 PM [facility] REPOSITORY TYPE CODE TESTS RESULT OUT OF REFERENCE UNITS RANGE LAB L501.080 70-110 mg/dL High BEDSIDE GLU 161 Result Comment: MANAGEMENT OF PATIENT CARE PER NURSING PROTOCOL Performed By: #### L501.080 #### [facility] Point of Care [address] [place] [address] BEDSIDE GLUCOSE Collected: 08/14/2018 Status: F Source: [place] 4:26 PM [facility] REPOSITORY TYPE CODE TESTS RESULT OUT OF RANGE REFERENCE UNITS LAB L501.080 70-110 mg/dL Normal BEDSIDE GLU 110 Result Comment: MANAGEMENT OF PATIENT CARE PER NURSING PROTOCOL Performed By: #### L501.080 #### [facility] Point of Care [address] [place] [address] BEDSIDE GLUCOSE Collected: 08/14/2018 Status: F Source: [place] 12:24 PM [facility] REPOSITORY TYPE CODE TESTS RESULT OUT OF RANGE REFERENCE UNITS LAB L501.080 70-110 mg/dL Normal BEDSIDE GLU 80 Result Comment: MANAGEMENT OF PATIENT CARE PER NURSING PROTOCOL Performed By: #### L501.080 #### [facility] Point of Care [address] 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 It is [...] GLUCOSE Collected: 08/14/2018 Status: F Source: [place] 6:50 AM [facility] REPOSITORY TYPE CODE TESTS RESULT OUT OF REFERENCE UNITS RANGE LAB L501.080 70-110 mg/dL High BEDSIDE GLU 138 Result Comment: MANAGEMENT OF PATIENT CARE PER NURSING PROTOCOL Performed By: #### L501.080 #### [facility] [place] [address] CBC W/DIFF, AUTOMATED Collected: 08/14/2018 Status: F Source: [place] 6:12 AM [facility] REPOSITORY TYPE CODE TESTS RESULT OUT OF [...] Lymph 2.15 Performed By: #### L100.0100 #### [facility] [address], [address] COMPREHENSIVE METABOLIC Collected: 08/14/2018 Status: F Source: [place] BROWN 6:12 AM [facility] REPOSITORY TYPE CODE TESTS RESULT OUT OF [...] GAP 11 Performed By: #### L500.4050 #### [facility] [address] [place], [address] PHOSPHORUS Collected: 08/14/2018 Status: F Source: [place] 6:12 AM [facility] REPOSITORY Order Comment: Comments: add to todays lab TYPE CODE TESTS RESULT OUT OF RANGE REFERENCE UNITS LAB L501.2300 2.5-4.9 mg/dL High PHOS 6.1 Performed By: #### L501.2300 #### [facility] [address] [place], [address] BEDSIDE GLUCOSE Collected: 08/13/2018 Status: F Source: [place] 9:18 PM [facility] REPOSITORY TYPE CODE TESTS RESULT OUT OF RANGE REFERENCE UNITS LAB L501.080 70-110 mg/dL Normal BEDSIDE GLU 106 Result Comment: MANAGEMENT OF PATIENT CARE PER NURSING PROTOCOL Performed By: #### L501.080 #### [facility] Point of Care [address] [place] [address] BEDSIDE GLUCOSE Collected: 08/13/2018 Status: F Source: [place] 2:38 PM [facility] REPOSITORY TYPE CODE TESTS RESULT OUT OF REFERENCE UNITS RANGE LAB L501.080 70-110 mg/dL High BEDSIDE GLU 144 Result Comment: MANAGEMENT OF PATIENT CARE PER NURSING PROTOCOL Performed By: #### L501.080 #### [facility] Point of Care [address] [place] [address] BEDSIDE GLUCOSE Collected: 08/13/2018 Status: F Source: [place] 12:05 PM [facility] REPOSITORY TYPE CODE TESTS RESULT OUT OF REFERENCE UNITS RANGE LAB L501.080 70-110 mg/dL High BEDSIDE GLU 122 Result Comment: MANAGEMENT OF PATIENT CARE PER NURSING PROTOCOL Performed By: #### L501.080 #### [facility] Point of Care [address] [place] [address] ALCOHOL, BLOOD Collected: 08/13/2018 Status: F Source: [place] (MEDICAL)-SERUM 10:30 AM [facility] REPOSITORY TYPE CODE TESTS RESULT OUT OF [...] fatal coma Performed By: #### L501.9100 #### [facility] [address] [facility] [place], [address] SALICYLATE Collected: 08/13/2018 Status: F Source: [place] 10:30 AM [facility] REPOSITORY TYPE CODE TESTS RESULT OUT OF REFERENCE UNITS RANGE LAB L501.8300 2.8-20.0 mg/dL Low SALICYLATE < 1.7 Performed By: #### L501.8300 #### [facility] [address] [facility] [place], [address] CORTISOL SERUM Collected: 08/13/2018 Status: F Source: [place] 10:30 AM [facility] REPOSITORY Order Comment: BASELINE OR POST MEDICATION STIMULATION?: Baseline TYPE CODE TESTS RESULT OUT OF REFERENCE UNITS RANGE LAB L509.6000 3.09-22.40 ug/dL High CORTISOL 27.70 Result Comment: Adult (AM) 4.30 - 22.40 ug/dL Adult (PM) 3.09 - 16.66 ug/dL Performed By: #### L509.6000 #### [facility] [address] [facility] [facility], [address] EXTREMITY UPPER Observed: 08/13/2018 Status: F Source: [place] WITHOUT CONTRA 9:59 AM [facility] REPOSITORY [facility] Imaging Services [address] [place] [address] Extremity Upper without Contra MR#: [id number] Acct: [id number] Name: PAVITHRA PAINTER Rep #: [id number] : 1970 F 47 From: Carolina Becker MD PCP: Vu GARCIA,Mitchell Yadav Status: ADM IN Study: Extremity Upper without Contra Date of Exam: 08/13/18 Exam# [id number] Ordering Dr: Lele Garcia MD STUDY: ABNORMAL [...] , CC: Lele Garcia; Mitchell Womack MD Individual Pension Adviser: Signed MRSA WOUND DNA BY Collected: 08/13/2018 Status: F Source: [place] PCR 9:24 AM [facility] REPOSITORY Order Comment: Comments: Right elbow Specimen Source? right elbow wound TYPE CODE TESTS RESULT OUT OF RANGE REFERENCE UNITS LAB L8200.1100 Negative Normal MRSA Negative RESULT LAB L8200.1150 Negative Normal SA RESULT NEGATIVE Performed By: #### L8200.1075 #### [facility] [address] [place], [address] Observed: 08/13/2018 Status: F Source: [place] CULTURE, DEEP WOUND 9:24 AM [facility] REPOSITORY Comments: From the right elbow wound Gram Stain Gram Stain No organisms seen Wound Culture No growth aerobically. Cult, Anaerobic No anaerobic bacteria isolated. Performed By: #### M100.1500 #### [facility] [address] [place], [address] BEDSIDE GLUCOSE Collected: 08/13/2018 Status: F Source: [place] 8:08 AM [facility] REPOSITORY TYPE CODE TESTS RESULT OUT OF REFERENCE UNITS RANGE LAB L501.080 70-110 mg/dL High BEDSIDE GLU 121 Result Comment: MANAGEMENT OF PATIENT CARE PER NURSING PROTOCOL Performed By: #### L501.080 #### [facility] Point of Care [address] [place] [address] BEDSIDE GLUCOSE Collected: 08/13/2018 Status: F Source: [place] 7:02 AM [facility] REPOSITORY TYPE CODE TESTS RESULT OUT OF RANGE REFERENCE UNITS LAB L501.080 70-110 mg/dL Normal BEDSIDE GLU 102 Result Comment: MANAGEMENT OF PATIENT CARE PER NURSING PROTOCOL Performed By: #### L501.080 #### [facility] Point of Care [address] [place] [address] BEDSIDE GLUCOSE Collected: 08/13/2018 Status: F Source: [place] 6:06 AM [facility] REPOSITORY TYPE CODE TESTS RESULT OUT OF RANGE REFERENCE UNITS LAB L501.080 70-110 mg/dL Normal BEDSIDE GLU 78 Result Comment: MANAGEMENT OF PATIENT CARE PER NURSING PROTOCOL Performed By: #### L501.080 #### [facility] [place] [address] CBC W/DIFF, AUTOMATED Collected: 08/13/2018 Status: F Source: [place] 6:02 AM [facility] REPOSITORY TYPE CODE TESTS RESULT OUT OF [...] Lymph 1.35 Performed By: #### L100.0100 #### [facility] [address] [place], [place], [address] BASIC METABOLIC Collected: 08/13/2018 Status: F Source: [place] PROFILE (BMP) 6:02 AM [facility] REPOSITORY TYPE CODE TESTS RESULT OUT OF [...] GAP 11 Performed By: #### L500.2500 #### [facility] [address] [place], [address] LIVER PROFILE Collected: 08/13/2018 Status: F Source: PAMELA 6:01 AM [facility] REPOSITORY Order Comment: Comments: From blood in [...] BILI 0.14 Performed By: #### L500.3400 #### [facility] [address] [place], [address] BEDSIDE GLUCOSE Collected: 08/13/2018 Status: F Source: PAMELA 5:22 AM [facility] REPOSITORY TYPE CODE TESTS RESULT OUT OF RANGE REFERENCE UNITS LAB L501.080 70-110 mg/dL Normal BEDSIDE GLU 80 Result Comment: MANAGEMENT OF PATIENT CARE PER NURSING PROTOCOL Performed By: #### L501.080 #### [facility] Point of Care [address] [place] [address] BEDSIDE GLUCOSE Collected: 08/13/2018 Status: F Source: PAMELA 4:01 AM [facility] REPOSITORY TYPE CODE TESTS RESULT OUT OF RANGE REFERENCE UNITS LAB L501.080 70-110 mg/dL Normal BEDSIDE GLU 106 Result Comment: MANAGEMENT OF PATIENT CARE PER NURSING PROTOCOL Performed By: #### L501.080 #### [facility] Point of Care [address] [place] [address] BEDSIDE GLUCOSE Collected: 08/13/2018 Status: F Source: PAMELA 3:00 AM [facility] REPOSITORY TYPE CODE TESTS RESULT OUT OF RANGE REFERENCE UNITS LAB L501.080 70-110 mg/dL Normal BEDSIDE GLU 83 Result Comment: MANAGEMENT OF PATIENT CARE PER NURSING PROTOCOL Performed By: #### L501.080 #### [facility] Point of Care [address] [place] [address] BEDSIDE GLUCOSE Collected: 08/13/2018 Status: F Source: PAMELA 2:01 AM [facility] REPOSITORY TYPE CODE TESTS RESULT OUT OF REFERENCE UNITS RANGE LAB L501.080 70-110 mg/dL High BEDSIDE GLU 127 Result Comment: MANAGEMENT OF PATIENT CARE PER NURSING PROTOCOL Performed By: #### L501.080 #### [facility] Point of Care [address] [place] [address] BEDSIDE GLUCOSE Collected: 08/13/2018 Status: F Source: PAMELA 1:10 AM [facility] REPOSITORY TYPE CODE TESTS RESULT OUT OF RANGE REFERENCE UNITS LAB L501.080 70-110 mg/dL Normal BEDSIDE GLU 74 Result Comment: MANAGEMENT OF PATIENT CARE PER NURSING PROTOCOL Performed By: #### L501.080 #### [facility] Point of Care [address] [place] [address] ABDOMEN SINGLE VIEW Observed: 08/13/2018 Status: F Source: PAMELA (PORTABLE) 12:20 AM [facility] REPOSITORY [facility] Imaging Services [address] [place] [address] Abdomen Single View (Portable) MR#: [id number] Acct: [id number] Name: PAVITHRA PAINTER Rep #: [id number] : 1970 F 47 From: Guillermo Karimi MD PCP: Vu GARCIA,[facility] Status: ADM IN Study: Abdomen Single View (Portable) Date of Exam: 08/13/18 Exam# [id number] Ordering Dr: Garcia Mead MD STUDY: X-RAY [...] CC: Garcia Mead MD; Mitchell Womack MD Individual Pension Adviser: Signed BEDSIDE GLUCOSE Collected: 08/13/2018 Status: F Source: PAMELA 12:06 AM [facility] REPOSITORY TYPE CODE TESTS RESULT OUT OF RANGE REFERENCE UNITS LAB L501.080 70-110 mg/dL Normal BEDSIDE GLU 92 Result Comment: MANAGEMENT OF PATIENT CARE PER NURSING PROTOCOL Performed By: #### L501.080 #### [facility] Point of Care [address] [place] [address] BEDSIDE GLUCOSE Collected: 08/12/2018 Status: F Source: PAMELA 11:08 PM [facility] REPOSITORY TYPE CODE TESTS RESULT OUT OF RANGE REFERENCE UNITS LAB L501.080 70-110 mg/dL Normal BEDSIDE GLU 104 Result Comment: MANAGEMENT OF PATIENT CARE PER NURSING PROTOCOL Performed By: #### L501.080 #### [facility] Point of Care [address] [place] [address] ABDOMEN SINGLE VIEW Observed: 08/12/2018 Status: F Source: PAMELA (PORTABLE) 10:37 PM [facility] REPOSITORY [facility] Imaging Services [address] [place] [address] Abdomen Single View (Portable) MR#: [id number] Acct: [id number] Name: PAVITHRA PAINTER Rep #: [id number] : 1970 F 47 From: Abiodun Johnson DO PCP: Vu GARCIA,Mitchell Yadav Status: ADM IN Study: Abdomen Single View (Portable) Date of Exam: 08/12/18 Exam# [id number] Ordering Dr: Garcia Mead MD STUDY: X-RAY [...] Abiodun Johnson DO at 23:26 EST Tel [phone], Service support , CC: Garcia Mead MD; Mitchell Womack MD Individual Pension Adviser: Signed BEDSIDE GLUCOSE Collected: 08/12/2018 Status: F Source: PAMELA 9:58 PM [facility] REPOSITORY TYPE CODE TESTS RESULT OUT OF RANGE REFERENCE UNITS LAB L501.080 70-110 mg/dL Normal BEDSIDE GLU 99 Result Comment: MANAGEMENT OF PATIENT CARE PER NURSING PROTOCOL Performed By: #### L501.080 #### [facility] Point of Care [address] [facility] [place] [address] ABDOMEN SINGLE VIEW Observed: 08/12/2018 Status: F Source: PAMELA (PORTABLE) 9:42 PM [facility] REPOSITORY [facility] Imaging Services [address] [place] [address] Abdomen Single View (Portable) MR#: [id number] Acct: [id number] Name: PAVITHRA PAINTER Rep #: [id number] : 1970 F 47 From: Abiodun Johnson DO PCP: Vu GARCIA,Mitchell Yadav Status: ADM IN Study: Abdomen Single View (Portable) Date of Exam: 08/12/18 Exam# [id number] Ordering Dr: Garcia Mead MD STUDY: X-RAY [...] Abiodun Johnson DO at 22:28 EST Tel [phone], Service support , CC: Garcia Mead MD; Mitchell Womack MD Individual Pension Adviser: Signed BLOOD GASES BY CPS Collected: 08/12/2018 Status: F Source: [place] 9:12 PM [facility] REPOSITORY TYPE CODE TESTS RESULT OUT OF [...] ISTAT 97 Performed By: #### L9000.0800 #### [facility] Point of Care [address] [place] [address] BEDSIDE GLUCOSE Collected: 08/12/2018 Status: F Source: [place] 8:44 PM [facility] REPOSITORY TYPE CODE TESTS RESULT OUT OF REFERENCE UNITS RANGE LAB L501.080 70-110 mg/dL High BEDSIDE GLU 136 Result Comment: MANAGEMENT OF PATIENT CARE PER NURSING PROTOCOL Performed By: #### L501.080 #### [facility] Point of Care [address] [place] [address] BRAIN WITHOUT Observed: 08/12/2018 Status: F Source: [place] CONTRAST 8:27 PM [facility] REPOSITORY [facility] Imaging Services [address] [place] [address] Brain without Contrast MR#: [id number] Acct: [id number] Name: PAVITHRA PAINTER Rep #: [id number] : 1970 F 47 From: Eliza Cheek PCP: Vu GARCIA,Mitchell Yadav Status: ADM IN Study: Brain without Contrast Date of Exam: 08/12/18 Exam# [id number] Ordering Dr: Cami Sanchez DO STUDY: MRI [...] CC: Cami Sanchez DO; Mitchell Womack MD Individual Pension Adviser: Signed BEDSIDE GLUCOSE Collected: 08/12/2018 Status: F Source: PAMELA 7:31 PM [facility] REPOSITORY TYPE CODE TESTS RESULT OUT OF REFERENCE UNITS RANGE LAB L501.080 70-110 mg/dL High BEDSIDE GLU 155 Result Comment: MANAGEMENT OF PATIENT CARE PER NURSING PROTOCOL Performed By: #### L501.080 #### [facility] Point of Care [address] [place] [address] BEDSIDE GLUCOSE Collected: 08/12/2018 Status: F Source: PAMELA 6:53 PM [facility] REPOSITORY TYPE CODE TESTS RESULT OUT OF REFERENCE UNITS RANGE LAB L501.080 70-110 mg/dL Low BEDSIDE GLU 56 Result Comment: MANAGEMENT OF PATIENT CARE PER NURSING PROTOCOL Performed By: #### L501.080 #### [facility] Point of Care [address] [place] [address] HISTORY AND PHYSICAL Observed: 08/12/2018 Status: F Source: [place] EXAM 6:41 PM [facility] REPOSITORY [facility] Medical Records Department [address] [place] [address] History and Physical 08/12/18 1833 MR#: [id number] Acct: [id number] Name: PAVITHRA PAINTER Rep #: [id number] : 1970 47 From: Cami Sanchez DO PCP: Vu GARCIA,Mitchell Yadav Status: ADM IN Y Location: [address] Problem List (1) Encephalopathy acute Status: Acute [...] (Last Reviewed 07/28/18 @ 13:13 by Gabriella Mnasfield) Nonrheumatic mitral (valve) insufficiency (Chronic) Secondary pulmonary [...] removed Surgical History: - Psychiatric History: Depression RISK CONTROL DIRECTOR History: No pertinent RISK CONTROL DIRECTOR history Smoking Status: Unknown if ever smoked [...] heparin Code Visit Inpatient E AND M: 15622 Init Hosp L3 08/12/18 1841 <Electronically signed by Cami Sanchez DO> Date Cami Sanchez DO Cosign Signature: Date (if applicable) CC: Cami Sanchez DO; Mitchell Womack MD Signed EMERGENCY DEPARTMENT Observed: 08/12/2018 Status: F Source: PAMELA SUMMARY 5:19 PM [facility] REPOSITORY [facility] Medical Records Department [address] [place] [address] Emergency Department Summary 08/12/18 1715 MR#: [id number] Acct: [id number] Name: PAVITHRA PAINTER Rep #: [id number] : 1970 47 From: Aminata Bridges DO PCP: Vu GARCIA,Mitchell Yadav Status: REG ER - ER Visit Summary [...] renal failure] This note was generated with SeeJay dictation software. It may contain incorrect words, [...] problems, contact your Primary Care Provider. Call [facility] ([phone]) or report to the closest Emergency Room. Call 911 if necessary. 08/12/18 1071 <Electronically signed by Aminata Bridges DO> Date Aminata Bridges DO Cosigner Signature (If Indicated): Date CC: Mitchell Womack MD BLOOD GASES BY CPS Collected: 08/12/2018 Status: F Source: PAMELA 4:44 PM [facility] REPOSITORY TYPE CODE TESTS RESULT OUT [...] SO2 ISTAT Performed By: #### L9000.0800 #### [facility] Point of Care [address] [place], [place] [address] URINE DRUG SCREEN Collected: 08/12/2018 Status: F Source: PAMELA (YRNTA) 4:15 PM [facility] REPOSITORY Order Comment: Order Date: 08/12/18 TYPE [...] Normal NEGATIVE Performed By: #### L505.5000 #### [facility] [facility] [address] [place], [address] CBC W/DIFF, AUTOMATED Collected: 08/12/2018 Status: F Source: P[place]A 4:00 PM [facility] REPOSITORY TYPE CODE TESTS RESULT OUT OF [...] Lymph 1.40 Performed By: #### L100.0100 #### [facility] [address] [place], [address] BASIC METABOLIC Collected: 08/12/2018 Status: F Source: [place] PROFILE (BMP) 4:00 PM [facility] REPOSITORY TYPE CODE TESTS RESULT OUT OF [...] 9 Performed By: #### L500.2500, L501.4010 #### [facility] [address] [place], [address] TROPONIN-I Collected: 08/12/2018 Status: F Source: P[place]ELA 4:00 PM [facility] REPOSITORY TYPE CODE TESTS RESULT OUT OF RANGE REFERENCE UNITS LAB L501.4010 <0.045 ng/mL Normal 0.024 TROPONIN-I Result Comment: TROPONIN-I EXPECTED VALUES <0.045 Negative 0.045 - 0.590 Consistent with Cardiac Damage > OR = 0.600 Critical Value Not every elevated troponin is indicative of HI. These values should be used with clinical judgement in examining the patient's clinical picture for diagnosis. To establish a diagnosis of HI versus myocardial injury, there must be a demonstrated rise and/or fall in the troponin values, in addition to ischemic symptoms, EKG changes, new regional wall motion abnormality, and/or angiographical evidence. PLEASE NOTE: REFERENCE RANGES EDITED 18 Performed By: #### L500.2500, L501.4010 #### [facility] [address] [place], [address] LACTIC ACID Collected: 08/12/2018 Status: F Source: PAMELA 4:00 PM [facility] REPOSITORY Order Comment: Yes/No query for Sepsis Lactate Rule Y TYPE CODE TESTS RESULT OUT OF RANGE REFERENCE UNITS LAB L503.6005 0.4-2.0 mmol/L Normal LACTIC ACID 0.8 Performed By: #### L503.6005 #### [facility] [address] [place], [address] CPK TOTAL, CREATINE Collected: 08/12/2018 Status: F Source: [place]A KINASE 4:00 PM [facility] REPOSITORY TYPE CODE TESTS RESULT OUT OF RANGE REFERENCE UNITS LAB L501.3620 26-192 U/L Normal CPK TOTAL 118 Performed By: #### L501.3620 #### [facility] [address] [place], [address] AMMONIA Collected: 08/12/2018 Status: F Source: PAMELA 4:00 PM [facility] REPOSITORY TYPE CODE TESTS RESULT OUT OF RANGE REFERENCE UNITS LAB L503.5510 11-32 umol/L Normal AMMONIA 18.0 Performed By: #### L503.5510 #### [facility] [address] [place], [address] Observed: 08/12/2018 Status: F Source: PAMELA CULTURE, BLOOD (WB) 4:00 PM [facility] REPOSITORY BC No growth in 5 days. Performed By: #### M200.1000 #### [facility] [address] [place], [address] Observed: 08/12/2018 Status: F Source: PAMELA CULTURE, BLOOD (WB) 4:00 PM [facility] REPOSITORY BC No growth in 5 days. Performed By: #### M200.1000 #### [facility] [address] [place], [address] SPINE CERVICAL Observed: 08/12/2018 Status: F Source: PAMELA WITHOUT CONTRAS 3:48 PM [facility] REPOSITORY [facility] Imaging Services [address] [place] [address] Spine Cervical without Contras MR#: [id number] Acct: [id number] Name: PAVITHRA PAINTER Rep #: [id number] : 1970 F 47 From: Byron Sky MD PCP: Vu GARCIA,Mitchell Yadav Status: REG ER Study: Spine Cervical without Contras Date of Exam: 08/12/18 Exam# [id number] Ordering Dr: Aminata Bridges DO STUDY: CT CERVICAL SPINE WITHOUT CONTRAST [...] CC: Aminata Bridges DO; Mitchell Womack MD Individual Pension Adviser: Signed CHEST 1 VIEW Observed: 08/12/2018 Status: F Source: [place] (PORTABLE) 3:47 PM [facility] REPOSITORY [facility] Imaging Services [address] [place] [address] Chest 1 View (Portable) MR#: [id number] Acct: [id number] Name: PAVITHRA PAINTER Rep #: [id number] : 1970 F 47 From: Byron Sky MD PCP: Vu GARCIA,Mitchell Yadav Status: PRE ER Study: Chest 1 View (Portable) Date of Exam: 08/12/18 Exam# [id number] Ordering Dr: Aminata Bridges DO STUDY: X-RAY [...] CC: Aminata Bridges DO; Mitchell Womack MD Individual Pension Adviser: Signed BRAIN/HEAD WITHOUT Observed: 08/12/2018 Status: F Source: [place] CONTRAST 3:47 PM [facility] REPOSITORY [facility] Imaging Services [address] [place] [address] Brain/Head without Contrast MR#: [id number] Acct: [id number] Name: PAVITHRA PAINTER Rep #: [id number] : 1970 F 47 From: Byron Sky MD PCP: Vu GARCIA,Mitchell Yadav Status: REG ER Study: Brain/Head without Contrast Date of Exam: 08/12/18 Exam# [id number] Ordering Dr: Aminata Bridges DO STUDY: CT [...] CC: Aminata Bridges DO; Mitchell Womack MD Individual Pension Adviser: Signed BEDSIDE GLUCOSE Collected: 08/12/2018 Status: F Source: [place] 3:26 PM [facility] REPOSITORY TYPE CODE TESTS RESULT OUT OF RANGE REFERENCE UNITS LAB L501.080 70-110 mg/dL Normal BEDSIDE GLU 70 Result Comment: MANAGEMENT OF PATIENT CARE PER NURSING PROTOCOL Performed By: #### L501.080 #### [facility] Point of Care [address] [place] [address] EMERGENCY DEPARTMENT Observed: 08/08/2018 Status: F Source: [place] SUMMARY 7:05 AM [facility] REPOSITORY [facility] Medical Records Department [address] [place] [address] Emergency Department Summary 08/07/18 2242 MR#: [id number] Acct: [id number] Name: PAVITHRA PAINTER Rep #: [id number] : 1970 47 From: Dao Neumann MD [...] to uremia This note was generated with SeeJay dictation software. It may contain incorrect words, [...] your Primary Care Provider. Call [facility] ([phone]) or report to the closest Emergency Room. Call 911 if necessary. 08/08/18 0705 <Electronically signed by Dao Neumann MD> Date Dao Neumann MD Cosigner Signature (If Indicated): Date CC: Mitchell Womack MD DISCHARGE INSTRUCTION Observed: 08/08/2018 Status: F Source: PAMELA 7:04 AM [facility] REPOSITORY [facility] Medical Records Department [address] [place] [address] Discharge Instruction 08/08/18 0156 MR#: [id number] Acct: [id number] Name: PAVITHRA PAINTER Rep #: [id number] : 1970 47 From: Dao Neumann MD [...] your Primary Care Provider. Call [facility] ([phone]) or report to the closest Emergency Room. Call 911 if necessary. 08/08/18703 <Electronically signed by Dao Neumann MD> Date Dao Neumann MD Cosigner Signature (If Indicated): Date CC: Mitchell Womack MD CBC-COMPLETE BLOOD CNT Collected: 08/07/2018 Status: F Source: [place] NO DIFF 11:24 PM [facility] REPOSITORY TYPE CODE TESTS RESULT OUT OF [...] MPV 9.9 Performed By: #### L100.0500 #### [facility] [address] [place], [place], [address] BASIC METABOLIC Collected: 08/07/2018 Status: F Source: [place] PROFILE ([facility]) 11:24 PM [facility] REPOSITORY TYPE CODE TESTS RESULT OUT OF [...] GAP 12 Performed By: #### L500.2500 #### [facility] [address] [place], [address] BEDSIDE GLUCOSE Collected: 08/07/2018 Status: F Source: [place] 11:11 PM [facility] REPOSITORY TYPE CODE TESTS RESULT OUT OF RANGE REFERENCE UNITS LAB L501.080 70-110 mg/dL Normal BEDSIDE GLU 83 Result Comment: MANAGEMENT OF PATIENT CARE PER NURSING PROTOCOL Performed By: #### L501.080 #### [facility] Point of Care [address] [place], [place] [address] URINALYSIS, COMPLETE Collected: 08/07/2018 Status: F Source: [place] 10:48 PM [facility] REPOSITORY Order Comment: Order Date: 08/07/18 How [...] 0-5 SEEN Performed By: #### L400.0001 #### [facility] [address] [place], [address] BEDSIDE GLUCOSE Collected: 08/07/2018 Status: F Source: [place] 10:08 PM [facility] REPOSITORY TYPE CODE TESTS RESULT OUT OF REFERENCE UNITS RANGE LAB L501.080 70-110 mg/dL Low BEDSIDE GLU 67 Result Comment: MANAGEMENT OF PATIENT CARE PER NURSING PROTOCOL Performed By: #### L501.080 #### [facility] Point of Care [address] [place] [address] LIVER PROFILE Collected: 07/28/2018 Status: F Source: [place] 2:07 PM [facility] REPOSITORY TYPE CODE TESTS RESULT OUT OF [...] 0.18 Performed By: #### L500.3400, L500.4100 #### [facility] [address] [place], [place], [address] LIPID PROFILE Collected: 07/28/2018 Status: F Source: [place] 2:07 PM [facility] REPOSITORY TYPE CODE TESTS RESULT OUT OF [...] 29 Performed By: #### L500.3400, L500.4100 #### [facility] [address] [place], [address] CARDIOLOGY VISIT Observed: 07/28/2018 Status: F Source: [place] REPORT 1:35 PM [facility] REPOSITORY [facility] [address] [place] [address] OFFICE VISIT Date of Service: 07/28/18 MR#: [id number] Acct: [id number] Name: PAVITHRA PAINTER Rep #: [id number] : 1970 Provider: Cesar Roberts MD Age/Sex: 47/F Location: [facility] Status: Signed HPI HPI Chief Complaint: post op Details: PAVITHRA PAINTER, [...] did undergo an echocardiogram on 01/09/16 at [facility] which demonstrated intact LV function of 60%, [...] been removed Underwent a stress echocardiogram at [facility] on 02/17/18 which was negative for inducible [...] Reasons: 6 M FU (dialysis M W ) 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 Is patient in pain?: No [...] tab PO DAILY 07/28/18 [History Confirmed 07/28/18] PFS Medical History Nonrheumatic mitral (valve) insufficiency [...] Diagnoses Secondary pulmonary arterial hypertension I27.21 07/28/18 2608 <Electronically signed by Cesar Roberts MD> Date [facility]esar Roberts MD [facility] Signature: Date (if applicable) CC: Mitchell Womack MD OP NOTE Observed: 07/26/2018 Status: F Source: [employer] 4:16 PM SYSTEM REPOSITORY PATIENT: PAVITHRA PAINTER ADMISSION DATE: 07/26/2018 SURGERY DATE: 07/26/2018 DATE OF : 1970 AGE: 47 ADMITTING PHYSICIAN: Cami Lau MD ATTENDING PHYSICIAN: Cami Lau MD DICTATING PHYSICIAN: Cami Lau MD OPERATIVE RECORD Procedure: RIGHT STAGE I BASILIC FISTULA CREATION. Preoperative Diagnosis: End-stage renal disease. Postoperative Diagnosis: End-stage renal disease. Anesthesia: MAC plus regional block. Fitness Assistant: Leda Louise M.D. History of Present Illness: [...] recovery room and anticipate discharge to home. Diskriter Job ID: [id number] Cami Lau MD DOD:07/26/2018 04:16 P RAYMONDT/amanda DOT:07/26/2018 08:47 P Job Number: [id number] Document Number: [id number] cc: Cami Lau MD [employer] [address] [facility] [address] GLUCOSE,BEDSIDE Collected: 07/26/2018 Status: F Source: [employer] 1:18 PM SYSTEM REPOSITORY TYPE CODE TESTS RESULT OUT OF RANGE REFERENCE UNITS LAB BGLU 70-100 mg/dL Normal 75 Glucose,Beds josé Result Comment: Test performed by glucose meter. Results may be 10%-15% lower than serum/plasma values. (CLIA ID [id number]) Performed By: #### BGLU #### [employer] [address] [place] [address] POTASSIUM Collected: 07/26/2018 Status: F Source: [employer] 10:06 AM SYSTEM REPOSITORY TYPE CODE TESTS RESULT OUT OF RANGE REFERENCE UNITS LAB K3 3.5-5.1 mmol/L Normal Potassium 5.0 Performed By: #### K3 #### [employer] [address] [place] [address] GLUCOSE,BEDSIDE Collected: 07/26/2018 Status: F Source: [employer] 9:08 AM SYSTEM REPOSITORY TYPE CODE TESTS RESULT OUT OF RANGE REFERENCE UNITS LAB BGLU 70-100 mg/dL Normal 75 Glucose,Beds josé Result Comment: Test performed by glucose meter. Results may be 10%-15% lower than serum/plasma values. (CLIA ID [id number]) Performed By: #### BGLU #### [facility] [address] [place] [address] CROSSMATCH, FREEZE Collected: 07/11/2018 Status: F Source: [place] 4:59 PM [facility] REPOSITORY TYPE CODE TESTS RESULT OUT OF REFERENCE UNITS RANGE LAB HLFXM(LOINC ) CROSSMATCH, COMMENT FREEZE Result Comment: SEE SEPARATE REPORT. Performed By: #### HLFXM #### [facility] [address] [place] [address] D-DIMER, HIGH Collected: 06/17/2018 Status: F Source: [facility] 1:12 PM [facility] REPOSITORY TYPE CODE TESTS RESULT OUT OF [...] For the assay in use at [facility] ([facility]), a cutoff of <0.50 mcg/mL has a Negative Predictive Value of 99.7% for exclusion of DVT in low and moderate PTP patients. Performed By: #### HSDDIE #### [place] [address] #### COMP, IGG, DSDNAB #### [facility] [address] [place] [address] [facility] [address] [place] [address] C3 AND C4 BATTERY Collected: 06/17/2018 Status: F Source: [facility] 1:12 PM [facility] REPOSITORY TYPE CODE TESTS RESULT OUT OF RANGE REFERENCE UNITS LAB C3 87-200 mg/dL C3 135 LAB C4 18-52 mg/dL C4 39 Performed By: #### HSDDIE #### [place] [address] #### COMP, IGG, DSDNAB #### [facility] [address] [place] [address] [facility] [address] [place] [address] IGG Collected: 06/17/2018 Status: F Source: [facility] 1:12 PM [facility] REPOSITORY TYPE CODE TESTS RESULT OUT OF RANGE REFERENCE UNITS LAB IGG 600-1714 mg/dL IgG 1449 Performed By: #### HSDDIE #### [address] [id number] #### COMP, IGG, DSDNAB #### [facility] [address] [place] [address] [facility] [address] [place] [address] DS DNA, MULTIPLEX Collected: 06/17/2018 Status: F Source: [facility] 1:12 PM [facility] REPOSITORY TYPE CODE TESTS RESULT OUT OF RANGE REFERENCE UNITS LAB DSDNAT Negative Abnormal DS DNA POSITIVE Antibody LAB DSDNAQ 0-3 IU/mL High DS DNA Ab, 28 Quant Performed By: #### HSDDIE #### [address] [address] #### COMP, IGG, DSDNAB #### [facility] [address] [address] [facility] [address] [address] CROSSMATCH, FREEZE Collected: 06/10/2018 Status: F Source: [place] 9:56 AM [facility] REPOSITORY TYPE CODE TESTS RESULT OUT OF REFERENCE UNITS RANGE LAB HLFXM(LOINC ) CROSSMATCH, COMMENT FREEZE Result Comment: SEE SEPARATE REPORT. Performed By: #### HLFXM #### [facility] [address] [place] [address] Observed: 06/09/2018 Status: F Source: [place] CULTURE, URINE 4:20 PM [facility] REPOSITORY Urine Culture There are no CLSI standards for interpretation of this Drug/Organism combination. ORGANISM 1: Lactobacillus species [place] Count 25,000-50,000 Performed By: #### M100.0650 #### [facility] [address] [place], [address] COMPREHENSIVE METABOLIC Collected: 06/09/2018 Status: F Source: [place] PROFIL 2:21 PM [facility] REPOSITORY TYPE CODE TESTS RESULT OUT OF [...] 12 Performed By: #### L500.4050, L501.9520 #### [facility] [address] [place], [address] THYROID STIM HORMONE Collected: 06/09/2018 Status: F Source: [place] (TSH) 2:21 PM [facility] REPOSITORY TYPE CODE TESTS RESULT OUT OF RANGE REFERENCE UNITS LAB L501.9520 0.358-3.74 uIU/mL Low TSH 0.27 Performed By: #### L500.4050, L501.9520 #### [facility] [address] [place], [address] CBC W/DIFF, AUTOMATED Collected: 06/09/2018 Status: F Source: [place] 2:21 PM [facility] REPOSITORY TYPE CODE TESTS RESULT OUT OF [...] Lymph 0.94 Performed By: #### L100.0100 #### [facility] [address] [place], [address] NETWORK RELATIONS CONSULTANT OFFICE VISIT Observed: 06/09/2018 Status: F Source: [place] REPORT 2:18 PM [facility] REPOSITORY [facility] 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 Is patient in pain?: No [...] DUPLEX UPPER Observed: 06/02/2018 Status: F Source: [place] EXTREMITY 5:56 PM [facility] REPOSITORY [facility] Cardiovascular Services [address] [place] [address] Saphenous Vein Mapping, Bilat 06/02/18 1305 MR#: [id number] Acct: [id number] Name: PAVITHRA PAINTER Rep #: [id number] : 1970 47 From: Rigo Valverde MD [...] Arline Ambriz Performed By: Quan Cazares RVT 06/02/181754 Date Rigo Valverde MD CC: Arline Ambriz DO; Mitchell Womack MD Date Dictated: 06/02/18 1305 Date Transcribed: 06/02/181754 Individual Pension Adviser: Signed OT D/C SUMMARY Observed: 06/02/2018 Status: F Source: [place] 4:56 [facility] REPOSITORY [facility] Occupational Therapy [facility] [address] [place] [address] Fax REHABILITATION SERVICES DISCHARGE SUMMARY MR#: [id number] Acct: [id number] Name: PAVITHRA PAINTER Rep #: [id number] : 1970 47 From: Chana Monique Referring [...] LUE. Strength assessment completed on this date: pensions retirement plan specialist flexed position R 95, L 62; pensions retirement plan specialist ext position R 78, L 75; lateral [...] Hobbies Goal:: Pavithra in to increase L pensions retirement plan specialist by 10-15 lbs to promote increased ability [...] please fell free to call me at [phone]. Thank you for the referral of this patient. Sincerely, Chana Monique <Electronically signed by Chana Monique > 06/02/18 1656 CC: Mitchell Womack MD KMB Signed PT D/C SUMMARY (1) Observed: 05/24/2018 Status: F Source: [place] 3:14 PM [facility] REPOSITORY [facility] Physical Therapy [address] [place] [address] Fax REHABILITATION SERVICES DISCHARGE SUMMARY MR#: [id number] Acct: [id number] Name: PAVITHRA PAINTER Rep #: [id number] : 1970 47 From: Maureen Solis PT, [...] IS APPLYING FOR SCHOLARSHIP/LOWER RATES AT THE [employer] TO SEE IF SHE CAN GET MEMBERSHIP [...] THOUGH. HER REPORTING THAT SHE IS PURSING [employer] MEMBERSHIP IS A SIGN OF HER MOTIVATION [...] HEP AT THIS TIME AND TO PURSUE [employer] MEMBERSHIP. PATIENT IS STILL IN OCCUPATIONAL THERAPY [...] please feel free to call me at [phone]. Thank you for the referral of this patient. Sincerely, Maureen Solis <Electronically signed by Maureen Solis PT, Cert. MDT> 05/24/18 1515 CC: Mitchell Womack MD LUCILA Signed 12 LEAD ELECTROCARDIOGRAM Observed: 05/24/2018 Status: F Source: [place] 1:37 PM [facility] REPOSITORY [facility] Cardiovascular Services [address] [place] [address] 12 Lead EKG 05/18/18 1604 MR#: [id number] Acct: [id number] Name: PAVITHRA PAINTER Rep #: [id number] : 1970 47 From: Cesar Roberts MD Attending Dr: Desirae Minaya MD Status: [facility] Ordering Dr: Desirae Minaya MD Date: 05/18/18 Location: [facility] Sex: F A Admitted: Test Reason : [...] Abnormal ECG Confirmed by CESAR ROBERTS ([id number]), senior editor CESAR SIMEON ([id number]) on 05/24/2018 1:36:42 PM Referred By: Desirae Minaya Confirmed By:CESAR ROBERTS 05/24/18 1336 Date Cesar Roberts MD CC: Desirae Minaya MD; Mitchell Womack MD Signed GLUCOSE,BEDSIDE Collected: 05/20/2018 Status: F Source: [employer] 5:19 PM SYSTEM REPOSITORY TYPE CODE TESTS RESULT OUT OF RANGE REFERENCE UNITS LAB BGLU 70-100 mg/dL High 107 Glucose,Beds josé Result Comment: Test performed by glucose meter. Results may be 10%-15% lower than serum/plasma values. (CLIA ID [id number]) Performed By: #### BGLU #### [employer] [address] [place] [address] GLUCOSE,BEDSIDE Collected: 05/20/2018 Status: F Source: [employer] 4:31 PM SYSTEM REPOSITORY TYPE CODE TESTS RESULT OUT OF RANGE REFERENCE UNITS LAB BGLU 70-100 mg/dL Normal 84 Glucose,Beds josé Result Comment: Test performed by glucose meter. Results may be 10%-15% lower than serum/plasma values. (CLIA ID [id number]) Performed By: #### BGLU #### [employer] [address] [place] [address] GLUCOSE,BEDSIDE Collected: 05/20/2018 Status: F Source: [employer] 4:11 PM SYSTEM REPOSITORY TYPE CODE TESTS RESULT OUT OF RANGE REFERENCE UNITS LAB BGLU 70-100 mg/dL Low 56 Glucose,Beds josé Result Comment: Test performed by glucose meter. Results may be 10%-15% lower than serum/plasma values. (CLIA ID [id number]) Performed By: #### BGLU #### [employer] [address] [place] [phone] CREATININE Collected: 05/20/2018 Status: F Source: [employer] 11:55 AM SYSTEM REPOSITORY TYPE CODE TESTS RESULT OUT OF REFERENCE UNITS RANGE LAB CRET3 0.52-1.25 mg/dL High Creatinine 8.83 LAB GF3BR >60 mL/min eGFR 5.9 LAB GF3WR >60 mL/min eGFR OTHER 4.8 Result Comment: Source- MDRD equation with creatinine calibration to IDMS(NKDEP) eGFR not recommended for drug dose adjustment Performed By: #### CRTN3, K3 #### [employer] [address] [place] [phone] POTASSIUM Collected: 05/20/2018 Status: F Source: [employer] 11:55 AM SYSTEM REPOSITORY TYPE CODE TESTS RESULT OUT OF RANGE REFERENCE UNITS LAB K3 3.5-5.1 mmol/L Normal Potassium 5.1 Performed By: #### CRTN3, K3 #### [employer] [facility] [address] [place] [address] GLUCOSE,BEDSIDE Collected: 05/20/2018 Status: F Source: [employer] 11:39 AM SYSTEM REPOSITORY TYPE CODE TESTS RESULT OUT OF RANGE REFERENCE UNITS LAB BGLU 70-100 mg/dL Normal 77 Glucose,Beds josé Result Comment: Test performed by glucose meter. Results may be 10%-15% lower than serum/plasma values. (CLIA ID [id number]) Performed By: #### BGLU #### [employer] [address] [address] DISCHARGE INSTRUCTION Observed: 05/19/2018 Status: F Source: [place] 10:30 AM [facility] REPOSITORY [facility] Medical Records Department [address] [place] [address] Instructions for Home/Discharge Instructions 05/19/18 1029 MR#: [id number] Acct: [id number] Name: PAVITHRA PAINTER Rep #: [id number] : 1970 47 From: Desirae Minaya MD PCP: Vu GARCIA,Mitchell Yadav Status: REG [facility] Discharge Diet: No Restrictions Discharge Activity: Return [...] Follow Up With: Desirae Minaya MD - [phone] 05/19/18 1030 <Electronically signed by Desirae Minaya MD> Date Desirae Minaya MD CC: Mitchell Womack MD OPERATIVE REPORT Observed: 05/19/2018 Status: F Source: [place] 10:29 AM [facility] REPOSITORY [facility] Medical Records Department [address] [place] [address] Operative Report 05/19/18 1027 MR#: [id number] Acct: [id number] Name: PAVITHRA PAINTER Rep #: [id number] : 1970 47 From: Desirae Minaya MD PCP: Mitchell Womack MD, Chi Status: [facility] Y Location: [place] [address] Problem List (1) Postmenopausal bleeding Status: Acute [...] AND PHYSICAL Observed: 05/19/2018 Status: F Source: [place] EXAM 9:12 AM [facility] REPOSITORY [facility] Medical Records Department [address] [place] [address] History and Physical 05/18/18 1725 MR#: [id number] Acct: [id number] Name: PAVITHRA PAINTER Rep #: [id number] : 1970 47 From: Desirae Minaya MD PCP: Vu GARCIA,Mitchell Yadav Status: REG [facility] Y Location: [place] [address] Problem List (1) Postmenopausal bleeding Status: Acute [...] removed Surgical History: - Psychiatric History: Depression RISK CONTROL DIRECTOR History: No pertinent RISK CONTROL DIRECTOR history Smoking Status: Never smoker - *Family [...] Desirae Minaya MD> Date Desirae Minaya MD [facility] Signature: Date (if applicable) CC: Desirae Minaya MD; Mitchell Womack MD Signed BEDSIDE GLUCOSE Collected: 05/19/2018 Status: F Source: [place] 9:11 AM [facility] REPOSITORY TYPE CODE TESTS RESULT OUT OF RANGE REFERENCE UNITS LAB L501.080 70-110 mg/dL Normal BEDSIDE GLU 79 Result Comment: MANAGEMENT OF PATIENT CARE PER NURSING PROTOCOL Performed By: #### L501.080 #### [facility] Point of Care [address] [place] [address] ENDOMETRIAL BX/CURETTINGS Observed: 05/19/2018 Status: F Source: [place] 12:00 AM [facility] REPOSITORY Patient: PAVITHRA PAINTER : 1970 (47/F) Acct Num: [id number] Phys: Rei GARCIA,Desirae Unit Num: [id number] Loc: [facility] Specimen: [id number] Received: 05/19/18 - 4043 Spec Type: ENDOM BX/C TISSUES TISSUES: Endometrium, NOS GROSS DESCRIPTION Received in fixative is one container labeled with the patient's name and designated endometrial curettings. The specimen consists of multiple irregular fragments of pink-red soft tissue mixed with mucoid tissue that in aggregate measure 2 x 2.5 x 0.3 cm. The entire specimen is submitted in one cassette. / RANJITH:carly 05/19/18 TC:4 CPT: 11668 HEADER OPERATION: Hysteroscopy, dilation and curettage PRE-OP DIAGNOSIS: Postmenopausal bleeding TISSUE SUBMITTED: Endometrial curettings MICROSCOPIC DESCRIPTION Slides are reviewed. MICROSCOPIC DIAGNOSIS Endometrial curettings: Superficial fragments of inactive endometrial tissue. Fragments of benign ectocervical epithelium, blood and mucous. RANJITH:carly 05/20/18 Signed Gage Hernandez 05/20/18 <signature on file> Performed By: #### PEMB #### [facility] [address] [place], [place], [address] CBC-COMPLETE BLOOD CNT Collected: 05/18/2018 Status: F Source: [place] NO DIFF 4:19 PM [facility] REPOSITORY TYPE CODE TESTS RESULT OUT OF [...] MPV 10.6 Performed By: #### L100.0500 #### [facility] [address] [place], [address] BASIC METABOLIC Collected: 05/18/2018 Status: F Source: [place] PROFILE (BMP) 4:19 PM [facility] REPOSITORY TYPE CODE TESTS RESULT OUT OF [...] GAP 12 Performed By: #### L500.2500 #### [facility] [address] [place], [address] TYPE AND SCREEN Collected: 05/18/2018 Status: F Source: [place] 4:19 PM [facility] REPOSITORY Order Comment: Surgery Date: 05/19/18 Hx of Preganancy in last 3 Months No Ever experience any problems with transfusion(s)? N Hx of Transfusion in last 3 Months N Reason for Type AND Screen/Red Cells: SURGERY SURGICAL PROCEDURE: 42316 TYPE CODE TESTS RESULT OUT OF RANGE REFERENCE UNITS LAB B10.0800 Test Normal BLOOD TYPE GEL not performed LAB B100.4000 Normal Antibody NEGATIVE Screen Performed By: #### B101.7475 #### [facility] [address] [place], [place], [address] ABORH BLOOD TYPE, Collected: 05/18/2018 Status: F Source: [place] PATIENT 4:19 PM [facility] REPOSITORY TYPE CODE TESTS RESULT OUT OF RANGE REFERENCE UNITS LAB B100.1300 A Normal BLOOD POSITIVE TYPE PT Performed By: #### B100.0000 #### [facility] [address] [place], [place], [address] NETWORK RELATIONS CONSULTANT OFFICE VISIT Observed: 05/18/2018 Status: F Source: [place] REPORT 6:22 AM [facility] REPOSITORY [facility] [address] [place] [address] OFFICE VISIT Date of Service: 05/12/18 MR#: [id number] Acct: [id number] Name: PAVITHRA PAINTER Rep #: [id number] : 1970 Provider: Desirae Minaya MD Age/Sex: 47/F Location: 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 Orders Orders: Plan Detail Goals Decrease pain Decrease spasm Decrease inflammation Improve ROM Barriers DDD Lupus Coding Level of Care Code Off vis,est,level 3 Diagnoses Dysuria R30.0 05/18/18 0622 <Electronically signed by Desirae Minaya MD> Date Desirae Minaya MD Cosigner Signature: Date (if applicable) CC: Observed: 05/12/2018 Status: F Source: [place] CULTURE, URINE 6:00 PM [facility] REPOSITORY Urine Culture Culture exhibits no growth. Performed By: #### M100.0650 #### [facility] [address] [facility] [place], [address] HLA CLASS I AB Collected: 05/06/2018 Status: F Source: [facility], 3:32 PM HOSPITALS REPOSITORY TYPE CODE TESTS RESULT OUT OF REFERENCE UNITS RANGE LAB HLA1S(LOINC ) HLA CLASS SEE COMMENT I AB SCREEN,FC Result Comment: HLA CLASS I AB SCREEN,FLOW CYTOMETRY SEE SEPARATE REPORT. Performed By: #### HLAS1 #### [facility] [address] [place] [address] HLA CLASS II AB Collected: 05/06/2018 Status: F Source: [employer] SCREEN, 3:32 PM HOSPITALS REPOSITORY TYPE CODE TESTS RESULT OUT OF REFERENCE UNITS RANGE LAB HLA2S(LOINC ) HLA CLASS SEE COMMENT II AB SCREEN,FC Result Comment: HLA CLASS II AB SCREEN,FLOW CYTOMETRY SEE SEPARATE REPORT. Performed By: #### HLAS2 #### [facility] [address] [place] [address] RE-EVALUTION OT Observed: 05/05/2018 Status: F Source: [place] 2:17 PM [facility] REPOSITORY [facility] Occupational [place] 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 Completed ULFI as [...] Goals Goal:: Pavithra in to increase L pensions retirement plan specialist by 10-15 lbs to promote increased ability [...] do not hesitate to contact me at [phone] by phone or if you have questions or concerns regarding this new plan of care! Sincerely, Chana Monique <Electronically signed by Chana Monique > 05/05/18 1417 CC: Mitchell Womack MD KMNoel Signed For Medicare only, by signing this I certify the plan of care. Physicians Signature Date GLUCOSE,BEDSIDE Collected: 04/26/2018 Status: F Source: [employer] 1:47 PM SYSTEM REPOSITORY TYPE CODE TESTS RESULT OUT OF RANGE REFERENCE UNITS LAB BGLU 70-100 mg/dL Normal 84 Glucose,Beds josé Result Comment: Test performed by glucose meter. Results may be 10%-15% lower than serum/plasma values. (CLIA ID [id number]) Performed By: #### BGLU #### [employer] [address] [place] [address] GLUCOSE,BEDSIDE Collected: 04/26/2018 Status: F Source: [employer] 1:15 PM SYSTEM REPOSITORY TYPE CODE TESTS RESULT OUT OF RANGE REFERENCE UNITS LAB BGLU 70-100 mg/dL Normal 91 Glucose,Beds josé Result Comment: Test performed by glucose meter. Results may be 10%-15% lower than serum/plasma values. (CLIA ID [id number]) Performed By: #### BGLU #### [employer] [address] [place] [address] GLUCOSE,BEDSIDE Collected: 04/26/2018 Status: F Source: [employer] 12:03 PM SYSTEM REPOSITORY TYPE CODE TESTS RESULT OUT OF RANGE REFERENCE UNITS LAB BGLU 70-100 mg/dL High 107 Glucose,Beds josé Result Comment: Test performed by glucose meter. Results may be 10%-15% lower than serum/plasma values. (CLIA ID [id number]) Performed By: #### BGLU #### [employer] [place] [address] GLUCOSE,BEDSIDE Collected: 04/26/2018 Status: F Source: [employer] 11:13 AM SYSTEM REPOSITORY TYPE CODE TESTS RESULT OUT OF RANGE REFERENCE UNITS LAB BGLU 70-100 mg/dL Normal 85 Glucose,Beds josé Result Comment: Test performed by glucose meter. Results may be 10%-15% lower than serum/plasma values. (CLIA ID [id number]) Performed By: #### BGLU #### [employer] [facility] [place] [address] GLUCOSE,BEDSIDE Collected: 04/26/2018 Status: F Source: [employer] 9:50 AM SYSTEM REPOSITORY TYPE CODE TESTS RESULT OUT OF RANGE REFERENCE UNITS LAB BGLU 70-100 mg/dL High 139 Glucose,Beds josé Result Comment: Test performed by glucose meter. Results may be 10%-15% lower than serum/plasma values. (CLIA ID [id number]) Performed By: #### BGLU #### [employer] [facility] [address] [place] [address] HEMOGRAM Collected: 04/26/2018 Status: F Source: [employer] 9:35 AM SYSTEM REPOSITORY TYPE CODE TESTS [...] fL MPV Normal 8.4 Performed By: #### BRENDA STRICKLAND3M #### [employer] [address] [place] [address] BASIC METABOLIC PANEL Collected: 04/26/2018 Status: F Source: [employer] 9:35 AM SYSTEM REPOSITORY TYPE CODE TESTS [...] mg/dL Normal Calcium 8.6 Performed By: #### MARCO A BMP3M #### [employer] [address] [address] GLUCOSE,BEDSIDE Collected: 04/26/2018 Status: F Source: [employer] 9:24 AM SYSTEM REPOSITORY TYPE CODE TESTS RESULT OUT OF RANGE REFERENCE UNITS LAB BGLU 70-100 mg/dL Normal 76 Glucose,Beds josé Result Comment: Test performed by glucose meter. Results may be 10%-15% lower than serum/plasma values. (CLIA ID [id number]) Performed By: #### BGLU #### [facility] [address] [place] [phone] HCG,URINE QUAL Collected: 04/26/2018 Status: F Source: [facility] [employer] 9:19 AM SYSTEM REPOSITORY TYPE CODE TESTS RESULT OUT OF REFERENCE UNITS RANGE LAB HCGUR Negative NA Negative HCG,Urine Qual Result Comment: is the most common reason for HCG in urine, although choriocarcinoma, hydatidiform mole, and certain nontropho- blastic malignancies also result in detectable urinary HCG levels. Sensitivity = 20mIU/mL. Performed By: #### HCGUR #### [facility] [address] [address] VL VEIN MAPPING FOR Observed: 04/21/2018 Status: F Source: [facility] 12:26 PM SYSTEM REPOSITORY Patient Name: PAVITHRA PAINTER Ultrasound Exam Date/Time 04/21/2018 15:23:51 EDT Exam VL Vein Map for Preop Fistula Upper Ext Ordering Physician CAMI LAU Accession Number [id number] CPT4 Codes G0365 () Reason For Exam End stage renal disease Report [facility] --- Vein Mapping For Dialysis Access Evaluation Patient Name: Pavithra Painter : 1970 (47yrs) Study Date: 04/21/2018 Age: 47 Account: [id number] Gender: F Loc: BP: Ordering: Cami Lau Technologist: Ordering Physician: Cami Lau Termite Renewal Inspector: Ekaterina Powers RVT, [facility] Interpreting Physician: Garcia Morales MD --- Location: [place] [address] --- INDICATIONS: ESRD. Preop examination. --- [...] performed. The images were obtained using a [employer] E9 vascular ultrasound machine. --- VENOUS FLOW [...] + Electronically signed by: Garcia Morales MD [id number]:56 Final Dictated: 04/22/2018 7:58 am Dictating Physician: GARCIA MORALES Signed Date and Time: 04/21/2018 2:08 pm Signed by: GARCIA MORALES, FREEZE Collected: 04/12/2018 Status: F Source: [facility] 4:09 PM HOSPITALS REPOSITORY TYPE CODE TESTS RESULT OUT OF REFERENCE UNITS RANGE LAB HLFXM(LOINC ) CROSSMATCH, COMMENT FREEZE Result Comment: SEE SEPARATE REPORT. Performed By: #### HLFXM #### [facility] [address] [place] [address] ORTHOPEDIC VISIT Observed: 04/12/2018 Status: F Source: [place] REPORT 10:44 AM [facility] REPOSITORY [facility] Orthopaedics AND Sports Medicine [facility] [address] [place] [address] OFFICE VISIT Date of Service: 04/07/18 MR#: [id number] Acct: [id number] Name: PAVITHRA PAINTER Rep #: [id number] : 1970 Provider: Iris Shah DO Age/Sex: 47/F Location: [facility] Status: Signed Intake Intake Visit Reasons: LEFT [...] Ergocalciferol [Vitamin D] 1.25 cap PO QMONTH 05/11/17 [History Confirmed 03/15/18] Amlactin Ultra Body Cream [...] left radius with routine healing, subsequent encounter S52.719D Plan Patient has full rom and no [...] left radius with routine healing, subsequent encounter S52.156D Encounter type: subsequent encounter Fracture alignment: nondisplaced Fracture healing: with routine healing 04/12/18 1044 <Electronically signed by Iris Shah DO> Date Iris Shah DO Cosigner Signature: Date (if applicable) CC: RE-EVALUATION - PT (1) Observed: 03/22/2018 Status: F Source: [place] 1:15 PM [facility] REPOSITORY [facility] Physical Therapy [facility] [address] [place] [address]. [address] [place], [place] [address] Fax REEVALUATION / MEDICARE RECERTIFICATION PHYSICAL THERAPY MR#: [id number] Acct: [id number] Name: PAVITHRA PAINTER Rep #: [id number] : 1970 47 From: Maureen Solis PT, [...] do not hesitate to contact me at [phone] by phone or if you have questions or concerns regarding this new plan of care! Sincerely, Maureen Solis <Electronically signed by Maureen Solis PT, Cert. MDT> 03/22/18 1315 CC: Mitchell Womack MD LUCILA Signed For Medicare only, by signing this I certify the plan of care. Physicians Signature Date CHIROPRACTIC REPORT Observed: 03/21/2018 Status: F Source: [place] 8:45 AM [facility] [address] [place], [place] [address] OFFICE VISIT Date of Service: 03/15/18 MR#: [id number] Acct: [id number] Name: PAVITHRA PAINTER Rep #: [id number] : 1970 Provider: Nancy Tuttle D.C. Age/Sex: 47/F Location: [facility] Status: Signed Intake Vital Signs03/15/18 Height 5 [...] mg PO BID 01/20/18 [History Confirmed 03/15/18] [facility] Medical History Nonrheumatic mitral (valve) insufficiency (Chronic) [...] Additional Codes Procedures - Manipulation: 3-4 regions (21729) 03/21/18 0845 <Electronically signed by Nancy Tuttle D.C.> Date Nancy Tuttle D.C. Cosigner Signature: Date (if applicable) CC: OPERATIVE REPORT Observed: 03/17/2018 Status: F Source: [place] 11:39 AM [facility] REPOSITORY [facility] Medical Records Department [address] [place] [address] Operative Report 03/17/18 1134 MR#: [id number] Acct: [id number] Name: MADINAPAVITHRA Marcos Rep #: [id number] : 1970 47 From: Rigo Valverde MD PCP: Vu GARCIA,NOSTROMO ICT Status: REG [facility] Y Location: [facility] Problem List (1) Problem with dialysis [...] was instilled. Micropuncture needle was inserted. 6 Indonesian short sheath dilator inserted. A hand-injection view [...] had been obtained. I used to 4 Indonesian angled glide catheter and 035 angled Glidewire [...] 03/17/2018 Status: F Source: [place] 9:55 AM [facility] REPOSITORY TYPE CODE TESTS RESULT OUT OF RANGE REFERENCE UNITS LAB L501.080 70-110 mg/dL Normal BEDSIDE GLU 70 Result Comment: MANAGEMENT OF PATIENT CARE PER NURSING PROTOCOL Performed By: #### L501.080 #### [facility] Point of Care [address] [place], [place] [address] CBC-COMPLETE BLOOD CNT Collected: 03/17/2018 Status: F Source: [place] NO DIFF 9:24 AM [facility] REPOSITORY TYPE CODE TESTS RESULT OUT OF [...] MPV 9.5 Performed By: #### L100.0500 #### [facility] [address] [place], [place], [id number] BASIC METABOLIC Collected: 03/17/2018 Status: F Source: [place] PROFILE (BMP) 9:24 AM [facility] REPOSITORY TYPE CODE TESTS RESULT OUT OF [...] GAP 8 Performed By: #### L500.2500 #### [facility] [address] [place], [address] ORTHOPEDIC VISIT Observed: 03/17/2018 Status: F Source: [place] REPORT 9:02 AM [facility] REPOSITORY [facility] [address] [place] [address] OFFICE VISIT Date of Service: 03/04/18 MR#: [id number] Acct: [id number] Name: PAVITHRA PAINTER Rep #: [id number] : 1970 Provider: Iris Shah DO Age/Sex: 47/F Location: [facility] Status: Signed Intake Intake Visit Reasons: LEFT [...] mg PO BID 01/20/18 [History Confirmed 03/15/18] [facility] Medical History Nonrheumatic mitral (valve) insufficiency (Chronic) [...] of neck of left radius, initial encounter S52.210U Plan called dr taylor office and informed [...] of neck of left radius, initial encounter S52.135A Encounter type: initial encounter Fracture alignment: nondisplaced 03/17/18 0902 <Electronically signed by Iris Shah DO> Date Iris Shah DO Cosigner Signature: Date (if applicable) CC: OT GENERAL EVALUATION Observed: 03/11/2018 Status: F Source: [place] 7:30 AM [facility] REPOSITORY [facility] Occup[facility] [address] [place] [address]. [address] [place], [place] [address] Fax REHABILITATION SERVICES INITIAL EVALUATION MR#: [id number] Acct: [id number] Name: PAVITHRA PAINTER Rep #: [id number] : 1970 47 From: Chana Monique Referring [...] out. Notes radial head fx and Dr. Chircorelli has placed in sling. Dr. womack wrote [...] secondary to radial head fx. 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 No pain generalized to elbow when completing pinch or pensions retirement plan specialist tasks. - Sensation Thumb: R 3.84, L [...] Goals Goal:: Pavithra in to increase L pensions retirement plan specialist by 10-15 lbs to promote increased ability [...] to be FAXED BACK to us at [phone] for Medicare purposes. Please let me know if there are questions or concerns regarding this plan of care. Physician Signature: Date: <Electronically signed by Chana Monique > 03/11/18 0730 CC: Mitchell Womack MD KMNoel Signed For Medicare only, by signing this I certify the plan of care. Physicians Signature Date CHIROPRACTIC REPORT Observed: 03/08/2018 Status: F Source: [place] 3:05 PM [facility] [address] [place] [address] OFFICE VISIT Date of Service: 03/08/18 MR#: [id number] Acct: [id number] Name: PAVITHRA PAINTER Rep #: [id number] : 1970 Provider: Nancy Tuttle D.C. Age/Sex: 47/F Location: [facility] Status: Signed Intake Vital Signs03/08/18 Height [...] mg PO BID 01/20/18 [History Confirmed 03/08/18] [facility] Medical History Nonrheumatic mitral (valve) insufficiency (Chronic) [...] Additional Codes Procedures - Manipulation: 3-4 regions (74357) 03/08/18 9694 <Electronically signed by Nancy Tuttle D.C.> Date Nancy Tuttle D.C. [facility] Signature: Date (if applicable) CC: CHIROPRACTIC REPORT Observed: 03/08/2018 Status: F Source: [place] 1:35 PM [facility] [address] [place] [address] OFFICE VISIT Date of Service: 03/03/18 MR#: [id number] Acct: [id number] Name: PAVITHRA PAINTER Rep #: [id number] : 1970 Provider: Nancy Tuttle D.C. Age/Sex: 47/F Location: [facility] Status: Signed Intake Vital Signs03/03/18 Height 5 [...] Additional Codes Procedures - Manipulation: 3-4 regions (87270) 03/08/18 1335 <Electronically signed by Nancy Tuttle D.C.> Date Nancy Tuttle D.C. Cosigner Signature: Date (if applicable) CC: SURGERY VISIT REPORT Observed: 03/08/2018 Status: F Source: [place] 11:44 AM [facility] REPOSITORY [facility] [address] [place] [address] [address] [place], [place] [address] OFFICE VISIT Date of Service: 03/08/18 MR#: [id number] Acct: [id number] Name: PAVITHRA PAINTER Rep #: [id number] : 1970 Provider: Anabela Lewis PA-C Age/Sex: 47/F Location: [facility] Status: Signed Intake Vital Signs03/08/18 Height 5 ft 4 in 03/08/18 Weight: 150 lb 03/08/18 Body Mass Index (BMI) 25.7 Intake Visit Reasons: update h AND p 7-5 fistulogram Chief Complaint: neck and mid back 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 She dialyzes on M, , F at [facility] dialysis [place]. Dr. Ambriz is her organisation and methods analyst. She denies recent health changes, illnesses, and [...] cooperative, healthy appearing, comfortable, no acute distress HENMT Head: normal to inspection Eyes General: appearance [...] 1. Problem with dialysis access, subsequent encounter T82.044L Plan Dr. Valverde will plan to perform [...] Diagnoses Problem with dialysis access, subsequent encounter T82.959E Encounter type: subsequent encounter 03/08/18 1144 <Electronically signed by Anabela Lewis PA-C> Date Anabela Lewis PA-C Cosigner Signature: Date (if applicable) CC: ELBOW MIN 3 VIEWS Observed: 03/04/2018 Status: F Source: [place] 9:25 AM [facility] [address] [place] [address] Elbow min 3 Views MR#: [id number] Acct: [id number] Name: PAVITHRA PAINTER Rep #: [id number] : 1970 F 47 From: Dariel Aguilar MD PCP: Mitchell Womack MD, Chi Status: REG CLI Study: Elbow min 3 Views Date of Exam: 03/04/18 Exam# [id number] Ordering Dr: Iris Shah DO STUDY: X-RAY [...] CC: Iris Shah DO; Mitchell Womack MD Individual Pension Adviser: Signed DOWNTIME REPORT Observed: 03/03/2018 Status: F Source: [place] 12:25 PM [facility] Medical Records Department [address] [place] [address] Downtime Report MR#: [id number] Acct: [id number] Name: PAVITHRA PAINTER Rep #: [id number] : 1970 47 From: Sy Simeon PCP: Mitchell Womack MD Chi Status: REG CLI This patient was seen during an EMR downtime February 14, 2018 - February 21, 2018. This patient may have a combination of paper and electronic documentation or all paper documentation. All documentation is viewable within the e-chart portion of [facility] for each patient visit. STRESS TEST ECHO W/O Observed: 03/03/2018 Status: F Source: [place] CONTRAST 10:25 AM [facility] REPOSITORY [facility] Cardiovascular Services [address] [place] [address] Stress Test Echo w/o Contrast MR#: [id number] Acct: [id number] Name: PAVITHRA PAINTER Rep #: [id number] : 1970 47 From: Cesar Roberts MD [...] Dictated: 02/17/18 1306 Date Transcribed: 03/03/18 1024 Individual Pension Adviser: Signed CHIROPRACTIC REPORT Observed: 03/01/2018 Status: F Source: [place] 4:25 PM [facility] REPOSITORY [facility] [address] [place] [address] OFFICE VISIT Date of Service: 03/01/18 MR#: [id number] Acct: [id number] Name: PAVITHRA PAINTER Rep #: [id number] : 1970 Provider: Nancy Tuttle D.C. Age/Sex: 47/F Location: [facility] Status: Signed Intake Vital Signs03/01/18 Height 5 [...] mg PO BID 01/20/18 [History Confirmed 02/10/18] [facility] Medical History Nonrheumatic mitral (valve) insufficiency (Chronic) [...] Additional Codes Procedures - Manipulation: 3-4 regions (24145) 03/01/18 6500 <Electronically signed by Nancy Tuttle D.C.> Date Nancy Villar Signature: Date (if applicable) CC: WRIST MIN 3 VIEWS Observed: 03/01/2018 Status: F Source: [place] 3:18 PM [facility] REPOSITORY [facility] Imaging Services [address] [place] [address] Wrist min 3 Views MR#: [id number] Acct: [id number] Name: PAVITHRA PAINTER Rep #: [id number] : 1970 F 47 From: Hector Carranza MD PCP: Vu GARCIA,Mitchell Yadav Status: REG CLI Study: Wrist min 3 Views Date of Exam: 03/01/18 Exam# [id number] Ordering Dr: Mitchell Womack MD STUDY: X-RAY [...] Service support , CC: Mitchell Womack MD Individual Pension Adviser: Signed FOREARM 2 VIEWS Observed: 03/01/2018 Status: F Source: [place] 3:18 PM [facility] REPOSITORY [facility] Imaging Services [address] [place] [address] Forearm 2 Views MR#: [id number] Acct: [id number] Name: PAVITHRA PAINTER Rep #: [id number] : 1970 F 47 From: Lupillo Jennings PCP: Mitchell Womack MD, Chi Status: REG CLI Study: Forearm 2 Views Date of Exam: 03/01/18 Exam# [id number] Ordering Dr: Mitchell Womack MD STUDY: X-RAY [...] Service support , CC: Mitchell Womack MD Individual Pension Adviser: Signed HAND MIN 3 VIEWS Observed: 03/01/2018 Status: F Source: [place] 3:18 PM [facility] REPOSITORY [facility] Imaging Services [address] [place] [address] Hand Min 3 Views MR#: [id number] Acct: [id number] Name: PAVITHRA PAINTER Rep #: [id number] : 1970 F 47 From: Lupillo Jennings PCP: Mitchell Womack MD, Chi Status: REG CLI Study: Hand Min 3 Views Date of Exam: 03/01/18 Exam# [id number] Ordering Dr: Mitchell Womack MD STUDY: X-RAY [...] 8:10 EDT , Service support , CC: Mitchell Womack MD Individual Pension Adviser: Signed ELBOW MIN 3 VIEWS Observed: 03/01/2018 Status: F Source: [place] 3:18 PM [facility] REPOSITORY [facility] Imaging Services [address] [place] [address] Elbow min 3 Views MR#: [id number] Acct: [id number] Name: PAVITHRA PAINTER Rep #: [id number] : 1970 F 47 From: Lupillo Jennings PCP: Mitchell Womack MD, Chi Status: REG CLI Study: Elbow min 3 Views Date of Exam: 03/01/18 Exam# [id number] Ordering Dr: Mitchell Womack MD STUDY: X-RAY [...] a verbal consultation. CC: Mitchell Womack MD Individual Pension Adviser: Signed RE-EVALUATION - PT (1) Observed: 03/01/2018 Status: F Source: [place] 1:29 PM [facility] REPOSITORY [facility] Physical Therapy [facility] [address] [place] [address] Fax REEVALUATION / MEDICARE RECERTIFICATION PHYSICAL THERAPY MR#: [id number] Acct: [id number] Name: PAVITHRA PAINTER Rep #: [id number] : 1970 47 From: Maureen Solis PT, Cert. MDT Referring DrMelo: Mithcell Womack MD Status: REG RCR Insurance: MEDICARE [...] do not hesitate to contact me at [phone] by phone or if you have questions or concerns regarding this new plan of care! Sincerely, Maureen Solis <Electronically signed by Maureen Solis PT, Cert. MDT> 03/01/18 1329 CC: Mitchell Womack MD LUCILA Signed For Medicare only, by signing this I certify the plan of care. Physicians Signature Date CHIROPRACTIC REPORT Observed: 02/24/2018 Status: F Source: [place] 4:44 PM [facility] [address] [place], [place] [address] OFFICE VISIT Date of Service: 02/24/18 MR#: [id number] Acct: [id number] Name: PAVITHRA PAINTER Rep #: [id number] : 1970 Provider: Nancy Tuttle D.C. Age/Sex: 47/F Location: [facility] Status: Signed Intake Vital Signs02/24/18 Height 5 [...] [History Confirmed 02/10/18] Visit Reasons: Back pain PFSH Medical History Nonrheumatic mitral (valve) insufficiency [...] Additional Codes Procedures - Manipulation: 3-4 regions (43836) 02/24/18 1644 <Electronically signed by Nancy Tuttle D.C.> Date Nancy Tuttle D.C. Cosigner Signature: Date (if applicable) CC: CHIROPRACTIC REPORT Observed: 02/24/2018 Status: F Source: [place] 12:30 PM [facility] [address] [place] [address] OFFICE VISIT Date of Service: 02/10/18 MR#: [id number] Acct: [id number] Name: PAVITHRA PAINTER Rep #: [id number] : 1970 Provider: Nancy Tuttle D.C. Age/Sex: 47/F Location: [facility] Status: Signed Intake Intake Visit Reasons: back [...] mg PO BID 01/20/18 [History Confirmed 02/10/18] [facility] Medical History Nonrheumatic mitral (valve) insufficiency (Chronic) [...] REPORT. Performed By: #### HLA1S #### [facility] [address] [place] [address] SURGERY VISIT REPORT Observed: 02/10/2018 Status: F Source: [place] 1:42 PM [facility] REPOSITORY [facility] [address] [place] [address] OFFICE VISIT Date of Service: 02/10/18 MR#: [id number] Acct: [id number] Name: PAVITHRA PAINTER Rep #: [id number] : 1970 Provider: Anabela Lewis PA-C Age/Sex: 47/F Location: [facility] Status: Signed Intake Vital Signs02/10/18 Height 5 ft 4 in 02/10/18 Weight: 148 lb 12.992 oz 02/10/18 Body Mass Index (BMI) 25.5 02/10/18 Blood Pressure 124/88 02/10/18 Blood Pressure Location Rt brachial Intake Visit Reasons: F/U CATH PLACEMENT 02/01/18 DP AND FISTULA RC Chief Complaint: recheck fistula swelling/ H AND P for cath insertion 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 Dr. Ambriz is her organisation and methods analyst. She denies recent health changes, illnesses, and [...] cooperative, comfortable, no acute distress, healthy appearing [facility] Head: normal to inspection Eyes General: appearance [...] 1. Problem with dialysis access, subsequent encounter T82.898D Plan Dr. Valverde has also evaluated this patient. Dr. Valverde will plan to perform a left upper extremity fistulogram with possible angioplasty. Patient has had the opportunity to ask and have questions answered. Patient verbally understands and agrees with the plan. Coding Level of Care Code Global Post Op Diagnoses Problem with dialysis access, subsequent encounter T82.898D Encounter type: subsequent encounter 02/10/18 1342 <Electronically signed by Anabela Lewis PA-C> Date Anabela Lewis PA-C Cosigner Signature: Date (if applicable) CC: Mitchell Womack MD HLA CLASS II AB Collected: 02/03/2018 Status: F Source: [facility], 4:50 PM HOSPITALS REPOSITORY TYPE CODE TESTS RESULT OUT OF REFERENCE UNITS RANGE LAB HLA2S(LOINC ) HLA CLASS SEE COMMENT II AB SCREEN,FC Result Comment: HLA CLASS II AB SCREEN,FLOW CYTOMETRY SEE SEPARATE REPORT. Performed By: #### HLA2S #### [facility] [address] [place] [address] HLA CLASS I SP AB Collected: 02/03/2018 Status: F Source: [facility] 4:50 PM [facility]OSPITALS REPOSITORY TYPE CODE TESTS RESULT OUT OF REFERENCE UNITS RANGE LAB HL1HD(LOINC ) HLA CLASS SEE COMMENT I SP AB ID,HD Result Comment: HLA-CLASS I SP ANTIBODY IDENTIFICATION, HIGH DEFINITION SEE SEPARATE REPORT. Performed By: #### HL1HD #### [facility] [address] [place] [address] UPPER EXT ARTERIAL Observed: 02/03/2018 Status: F Source: [facility] 12:10 PM [facility] REPOSITORY [facility] Cardiovascular Services [address] [place] [address] 02/03/18 1207 MR#: [id number] Acct: [id number] Name: PAVITHRA PAINTER Rep #: [id number] : 1970 47 From: Rigo Valverde MD Attending Dr: Anabela Lewis PA-C Status: REG CLI Ordering Dr: Date: 02/03/18 Location: [facility] Sex: F A Admitted: Arterial Study [...] Lewis PA-C; Mitchell Womack MD Date Dictated: 02/03/181206 Date Transcribed: 02/03/181206 Individual Pension Adviser: MERARY Signed AV FISTULA/DIALYSIS GRAFT Observed: 02/03/2018 Status: F Source: [place] SCAN 12:05 PM [facility] REPOSITORY [facility] Cardiovascular Services [address] [place] [address] AV Fistula/Dialysis Graft Scan 01/25/18 1506 MR#: [id number] Acct: [id number] Name: PAVITHRA PAINTER Rep #: [id number] : 1970 47 From: Rigo Valverde MD Attending Dr: Anabela Lewis PA-C Status: REG CLI Ordering Dr: Anabela Lewis PA-C Date: 01/25/18 Location: [facility] Sex: F A Admitted: LEFT Inflow [...] Anabela Lewis PA-C Performed By: Quan Cazares RVT 02/03/18 120 Date Rigo Valverde MD CC: Anabela Lewis PA-C; Mitchell Womack MD Date Dictated: 01/25/18 1506 Date Transcribed: 02/03/18 1205 Individual Pension Adviser: Signed OPERATIVE REPORT Observed: 02/02/2018 Status: F Source: [place] 2:17 PM [facility] REPOSITORY [facility] Medical Records Department [address] [place] [address] Operative Report 02/01/18 1219 MR#: [id number] Acct: [id number] Name: PAVITHRA PAINTER Rep #: [id number] : 1970 47 From: Cesar Sheth MD PCP: Mitchell Womack MD, Chi Status: DEP [facility] Y Location: [facility] Problem List (1) End stage renal disease [...] BEDSIDE GLUCOSE Collected: 02/01/2018 Status: F Source: [place] 12:43 PM [facility] REPOSITORY TYPE CODE TESTS RESULT OUT OF RANGE REFERENCE UNITS LAB L501.080 70-110 mg/dL Normal BEDSIDE GLU 77 Result Comment: MANAGEMENT OF PATIENT CARE PER NURSING PROTOCOL Performed By: #### L501.080 #### [facility] Point of Care [address] [facility] [place] [address] DISCHARGE INSTRUCTION Observed: 02/01/2018 Status: F Source: [place] 12:32 PM [facility] REPOSITORY [facility] Medical Records Department [address] [place] [address] Instructions for Home/Discharge Instructions 02/01/18 1231 MR#: [id number] Acct: [id number] Name: MADINAPAVITHRA Marcos Rep #: [id number] : 1970 47 From: Cesar Sheth MD PCP: Vu GARCIA,Mitchell Yadav Status: REG [facility] Discharge Diet: No Restrictions - Pain medication [...] Follow Up With: Cesar Sheth MD - [phone] When: Please plan to follow up in 7 days in the office. 02/01/18 1232 <Electronically signed by Cesar Sheth MD> Date Cesar Sheth MD CC: Mitchell Womack MD CXR FOR LINE PLACEMENT Observed: 02/01/2018 Status: F Source: [place] 12:31 PM [facility] REPOSITORY [facility] Imaging Services [address] [place] [address] CXR for Line Placement MR#: [id number] Acct: [id number] Name: PAVITHRA PAINTER Rep #: [id number] : 1970 F 47 From: Jonathan Garcia MD PCP: Mitchell Womack MD, Chi Status: [facility] Study: CXR for Line Placement Date of Exam: 02/01/18 Exam# [id number] Ordering Dr: Cesar Sheth MD STUDY: X-RAY [...] Jonathan Garcia MD at 14:31 EDT Tel [phone], Service support , CC: Cesar Sheth MD; Mitchell Womack MD Individual Pension Adviser: Signed BEDSIDE GLUCOSE Collected: 02/01/2018 Status: F Source: [place] 10:11 AM [facility] REPOSITORY TYPE CODE TESTS RESULT OUT OF RANGE REFERENCE UNITS LAB L501.080 70-110 mg/dL Normal BEDSIDE GLU 94 Result Comment: MANAGEMENT OF PATIENT CARE PER NURSING PROTOCOL Performed By: #### L501.080 #### [facility] Point of Care [address] [place] [address]. [place] [address] SURGERY VISIT REPORT Observed: 01/31/2018 Status: F Source: [place] 4:12 PM [facility] REPOSITORY [facility] [place] [address] OFFICE VISIT Date of Service: 01/31/18 MR#: [id number] Acct: [id number] Name: MADINAPAVITHRA Marcos Rep #: [id number] : 1970 Provider: Anabela Lewis PA-C Age/Sex: 47/F Location: [facility] Status: Signed Intake Vital Signs01/31/18 Height 5 ft 4 in 01/31/18 Weight: 119 lb 7.849 oz 01/31/18 Body Mass Index (BMI) 20.5 01/31/18 Blood Pressure 143/91 Intake Visit Reasons: F/U FISTULA CHECK Chief Complaint: recheck fistula swelling/ H AND P for cath insertion 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 Is patient in pain?: No [...] out. She dialyzes on , , at [facility] dialysis [place]. Dr. Ambriz is her organisation and methods analyst. She denies recent health changes, illnesses, and [...] cooperative, healthy appearing, comfortable, no acute distress HENMT Head: normal to inspection Eyes General: appearance [...] 1. Problem with dialysis access, subsequent encounter T82.618D 2. End stage renal disease N18.6 Plan [...] Diagnoses Problem with dialysis access, subsequent encounter T82.208D Encounter type: subsequent encounter End stage renal disease N18.6 01/31/18 1612 <Electronically signed by Anabela Lewis PA-C> Date Anabela Lewis PA-C Cosigner Signature: Date (if applicable) CC: Mitchell Womack MD ECHOCARDIOGRAM COMPLETE Observed: 01/25/2018 Status: F Source: [place] 11:21 AM [facility] REPOSITORY [facility] Cardiovascular Services [address] [place] [address] Echo Complete 01/25/18 1008 MR#: [id number] Acct: [id number] Name: PAVITHRA APINTER Rep #: [id number] : 1970 47 From: Cesar Roberts MD Attending Dr: Cesar Roberts MD Status: REG CLI Ordering Dr: Cesar Roberts MD Date: 01/25/18 Location: [facility] Sex: F A Admitted: Reason For [...] Dictated: 01/25/18 1008 Date Transcribed: 01/25/18 1120 Individual Pension Adviser: Signed ONCOLOGY VISIT REPORT Observed: 01/20/2018 Status: F Source: [place] 1:49 PM [facility] REPOSITORY [facility] [place] [address] OFFICE VISIT Date of Service: 01/20/18 1328 MR#: [id number] Acct: [id number] Name: PAVITHRA PAINTER Rep #: [id number] : 1970 From: Garcia Marte MD Age/Sex: [...] IRON+IRON BINDING Collected: 01/20/2018 Status: F Source: [facility] 1:05 PM [facility] REPOSITORY TYPE CODE TESTS RESULT OUT OF RANGE REFERENCE UNITS LAB L503.6075 250-450 ug/dL TIBC Normal 256 LAB L503.6150 50-170 ug/dL IRON Normal 55 LAB L503.6250 15.0-55.0 % IRON Normal SATURATION 21.5 Performed By: #### L503.6030, L503.6550 #### [facility] [address] [place], [address] FERRITIN Collected: 01/20/2018 Status: F Source: [place] 1:05 PM [facility] REPOSITORY TYPE CODE TESTS RESULT OUT OF REFERENCE UNITS RANGE LAB L503.6550 8-252 ng/mL High FERRITIN 615 Performed By: #### L503.6030, L503.6550 #### [facility] [address] [place], [address] CBC W/DIFF, AUTOMATED Collected: 01/20/2018 Status: F Source: [place] 12:48 PM [facility] REPOSITORY Order Comment: Reason for Laboratory Test [...] Lymph 0.76 Performed By: #### L100.0100 #### [facility] [address] [place], [place], [address] SURGERY VISIT REPORT Observed: 01/11/2018 Status: F Source: [place] 3:30 PM [facility] REPOSITORY [facility] [address] [place], [place] [address] OFFICE VISIT Date of Service: 01/11/18 MR#: [id number] Acct: [id number] Name: PAVITHRA PAINTER Rep #: [id number] : 1970 Provider: Anabela Lewis PA-C Age/Sex: 47/F Location: [facility] Status: Signed Intake Intake Visit Reasons: f/u Chest Cath AND Fistula Creation 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 Is patient in pain?: No [...] cap PO QDAY 01/11/18 [History Confirmed 01/11/18] [facility] Medical History Nonrheumatic mitral (valve) insufficiency (Chronic) [...] left upper extremity. She is able to pensions retirement plan specialist objects with her left hand. She denies [...] VISIT REPORT Observed: 01/11/2018 Status: F Source: [place] 2:14 PM [facility] REPOSITORY [facility] of [address] [place] [address] OFFICE VISIT Date of Service: 01/11/18 MR#: [id number] Acct: [id number] Name: PAVITHRA PAINTER Rep #: [id number] : 1970 Provider: Drew Goode D.O. Age/Sex: 47/F Location: [facility] Status: Signed Assessment AND Plan Problems 1. [...] CARDIOLOGY VISIT Observed: 01/11/2018 Status: F Source: [place] REPORT 12:13 PM [facility] REPOSITORY [facility] [address] [place] [address] OFFICE VISIT Date of Service: 01/11/18 MR#: [id number] Acct: [id number] Name: PAVITHRA PAINTER Rep #: [id number] : 1970 Provider: Cesar Roberts MD Age/Sex: 47/F Location: [facility] Status: Signed HPI HPI Chief Complaint: Preop [...] did undergo an echocardiogram on 01/09/16 at [facility] which demonstrated intact LV function of 60%, [...] cap PO QDAY 01/11/18 [History Confirmed 01/11/18] [facility] Medical History Nonrheumatic mitral (valve) insufficiency (Chronic) [...] VISIT REPORT Observed: 01/10/2018 Status: F Source: [place] 3:30 PM [facility] REPOSITORY [facility] [address] [place] [address] OFFICE VISIT Date of Service: 01/06/18 MR#: [id number] Acct: [id number] Name: PAVITHRA PAINTER Rep #: [id number] : 1970 Provider: Anabela Lewis PA-C Age/Sex: 47/F Location: [facility] Status: Signed Intake Intake Visit Reasons: Chest Cath AND fistula creation 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 Is patient in pain?: No [...] 12/09/17 [History Confirmed 01/06/18] Hydrocodone Bitart/Apap 5-325 [Eastover 5MG-325MG] 1 tab PO Q6H PRN PRN [...] left upper extremity. She is able to pensions retirement plan specialist objects with her left hand. She denies [...] EVALUATION (1) Observed: 01/04/2018 Status: F Source: [place] - PT 1:35 PM [facility] REPOSITORY [facility] [address] [place] [address] Fax REHABILITATION SERVICES INITIAL EVALUATION MR#: [id number] Acct: [id number] Name: PAVITHRA PAINTER Rep #: [id number] : 1970 47 From: Maureen Solis PT, [...] to be FAXED BACK to us at [phone] for Medicare purposes. Please let me know if there are questions or concerns regarding this plan of care. Physician Signature: Date: <Electronically signed by Maureen Solis PT, Cert. MDT> 01/04/18 1335 CC: Mitchell Womack MD LUCILA Signed For Medicare only, by signing this I certify the plan of care. Physicians Signature Date SURGERY VISIT REPORT Observed: 12/15/2017 Status: F Source: [place] 4:44 PM [facility] REPOSITORY [facility] [place] [address] OFFICE VISIT Date of Service: 12/15/17 MR#: [id number] Acct: [id number] Name: PAVITHRA PAINTER Rep #: [id number] : 1970 Provider: Rigo Valverde MD Age/Sex: 47/F Location: [facility] Status: Signed Intake Intake Visit Reasons: Fistula [...] 12/09/17 [History Confirmed 12/14/17] Hydrocodone Bitart/Apap 5-325 [Eastover 5MG-325MG] 1 tab PO Q6H PRN PRN [...] 1. Problem with dialysis access, subsequent encounter T82.898D Plan I have inspected the left upper [...] VISIT REPORT Observed: 12/14/2017 Status: F Source: [place] 4:40 PM [facility] REPOSITORY [facility] [place] [address] [address] OFFICE VISIT Date of Service: 12/14/17 MR#: [id number] Acct: [id number] Name: PAVITHRA PAINTER Rep #: [id number] : 1970 Provider: Anabela Lewis PA-C Age/Sex: 47/F Location: [facility] Status: Signed Intake Intake Visit Reasons: chest catheters and fistula creation 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 Is patient in pain?: Yes [...] 12/09/17 [History Confirmed 12/14/17] Hydrocodone Bitart/Apap 5-325 [Eastover 5MG-325MG] 1 tab PO Q6H PRN PRN [...] DISCHARGE INSTRUCTION Observed: 12/13/2017 Status: F Source: [place] 6:48 AM [facility] REPOSITORY [facility] Medical Records Department [address] [place] [address] Instructions for Home/Discharge Instructions 12/10/17 1245 MR#: [id number] Acct: [id number] Name: PAVITHRA PAINTER Rep #: [id number] : 1970 47 From: Rigo Valverde MD PCP: Vu GARCIA,Mitchell Yadav Status: DEP [facility] Discharge Diet: Renal Diet Discharge Activity: May [...] mg PO Q6 12/09/17 Hydrocodone Bitart/Apap 5-325 [Eastover 5MG-325MG] 1 tablet PO Q6H PRN PRN 3 Days #10 tablet 12/10/17 The following prescriptions were given: Hydrocodone Bitart/Apap 5-325 [Eastover 5MG-325MG] 1 tablet PO Q6H PRN PRN 3 Days #10 tablet PRN Reason: Pain Primary Care Physician: Mitchell Womack Chi, MD [Primary Care Provider] - Please Follow Up With: Rigo Valverde MD - [phone] When: Call to make an appointment for surgical follow up in 10 days 12/13/17 0648 <Electronically signed by Rigo Valverde MD> Date Rigo Valverde MD CC: Mitchell Womack MD OPERATIVE REPORT Observed: 12/10/2017 Status: F Source: [place] 4:23 PM [facility] REPOSITORY [facility] Medical Records Department [address] [place] [address] Operative Report 12/10/17 1614 MR#: [id number] Acct: [id number] Name: PAVITHRA PAINTER Rep #: [id number] : 1970 47 From: Rigo Valverde MD PCP: Vu GARCIA,Mitchell Chi Status: REG SDC Y Location: [facility]06- Problem List (1) Problem with dialysis access [...] Anesthesia:: Local MAC Anesthesiologist: Alexys Ramirez 12/10/17 8690 <Electronically signed by Rigo Valverde MD> Date Rigo Valverde MD CC: Rigo Valverde MD; Mitchell Wmoack MD Signed CHEST 1 VIEW Observed: 12/10/2017 Status: F Source: [place] (PORTABLE) 4:13 PM [facility] REPOSITORY [facility] Imaging Services [address] [place] [address] Chest 1 View (Portable) MR#: [id number] Acct: [id number] Name: PAVITHRA PAINTER Rep #: [id number] : 1970 F 47 From: Jayda Arreguin MD PCP: Mitchell Womack MD, Chi Status: REG [facility] Study: Chest 1 View (Portable) Date of Exam: 12/10/17 Exam# [id number] Ordering Dr: Rigo Valverde MD STUDY: X-RAY [...] CC: Rigo Valverde MD; Mitchell Womack MD Individual Pension Adviser: Signed CROSSMATCH, FREEZE Collected: 12/10/2017 Status: F Source: [place] 12:00 PM [facility]OSPITALS REPOSITORY TYPE CODE TESTS RESULT OUT OF REFERENCE UNITS RANGE LAB HLFXM(LOINC ) CROSSMATCH, COMMENT FREEZE Result Comment: SEE SEPARATE REPORT. Performed By: #### HLFXM #### [facility] [address] [place] [address] ,URINE Collected: 12/10/2017 Status: F Source: [place] 10:55 AM [facility] REPOSITORY TYPE CODE TESTS RESULT OUT OF REFERENCE UNITS RANGE LAB L400.8000 Negative Normal HCGUQUAL Negative Result Comment: Very dilute urine specimens, as indicated by a low specific gravity, may not contain marketing development representative levels of hCG. If is still suspected, a first morning urine specimen should be collected 48 hours later and tested. Performed By: #### L400.7600 #### [facility] [address] [place], [address] BEDSIDE GLUCOSE Collected: 12/10/2017 Status: F Source: [place] 9:49 AM [facility] REPOSITORY TYPE CODE TESTS RESULT OUT OF RANGE REFERENCE UNITS LAB L501.080 70-110 mg/dL Normal BEDSIDE GLU 104 Result Comment: MANAGEMENT OF PATIENT CARE PER NURSING PROTOCOL Performed By: #### L501.080 #### [facility] Point of Care [address] [place] [address] VENOUS DUPLEX UPPER Observed: 12/09/2017 Status: F Source: [place] EXTREMITY 3:24 PM [facility] REPOSITORY [facility] Cardiovascular Services [address] [place] [address] Saphenous Vein Mapping, Unilat 12/09/17 1448 MR#: [id number] Acct: [id number] Name: PAVITHRA PAINTER Rep #: [id number] : 1970 47 From: Rigo Valverde MD [...] MD Date Dictated: 12/09/17 1448 Date Transcribed: 12/09/171523 Individual Pension Adviser: Signed VENOUS DUPLEX [facility] Observed: 12/09/2017 Status: F Source: [place] EXTREMITY 3:22 PM [facility] REPOSITORY [facility] Cardiovascular Services [address] [place] [address] Venous Duplex US, Unilateral 12/09/17 1437 MR#: [id number] Acct: [id number] Name: PAVITHRA PAINTER Rep #: [id number] : 1970 47 From: Rigo Valverde MD Attending Dr: Rigo Valverde MD Status: REG CLI Ordering Dr: Rigo Valverde MD Date: 12/09/17 Location: [facility] Sex: F A Admitted: Version 2 [...] Dictated: 12/09/17 1437 Date Transcribed: 12/09/17 1519 Individual Pension Adviser: Signed SURGERY VISIT REPORT Observed: 12/08/2017 Status: F Source: [place] 3:[address] [address] OFFICE VISIT Date of Service: 12/08/17 MR#: [id number] Acct: [id number] Name: PAVITHRA PAINTER Rep #: [id number] : 1970 Provider: Anabela Lewis PA-C Age/Sex: 47/F Location: [facility] Status: Signed Intake Intake Visit Reasons: occluded [...] currently on dialysis M, W, F at [facility] dialysis [place]. Dr. Ambriz is her organisation and methods analyst. Patient has been dialyzing well. Today, dialysis [...] cooperative, healthy appearing, comfortable, no acute distress [facility] Head: normal to inspection Eyes General: appearance [...] 2. Problem with dialysis access, initial encounter T82.898A Plan I have discussed this patient with [...] N18.5 Problem with dialysis access, initial encounter T82.898A Encounter type: initial encounter 12/08/17 1523 <Electronically signed by Anabela Lewis PA-C> Date Anabela Lewis PA-C Cosigner Signature: Date (if applicable) CC: Arline Ambriz DO; Mitchell Womack MD CBC W/DIFF, AUTOMATED Collected: 11/30/2017 Status: F Source: [place] 2:50 PM [facility] REPOSITORY TYPE CODE TESTS RESULT OUT OF [...] Lymph 0.76 Performed By: #### L100.0100 #### [facility] [address] [place], [address] COMPREHENSIVE METABOLIC Collected: 11/30/2017 Status: F Source: [facility] 2:50 PM [facility] REPOSITORY TYPE CODE TESTS RESULT OUT OF [...] 11 Performed By: #### L500.4050, L501.9520 #### [facility] [address] [place], [place], [address] THYROID STIM HORMONE Collected: 11/30/2017 Status: F Source: [place] (TSH) 2:50 PM [facility] REPOSITORY TYPE CODE TESTS RESULT OUT OF RANGE REFERENCE UNITS LAB L501.9520 0.358-3.74 uIU/mL Normal TSH 1.19 Performed By: #### L500.4050, L501.9520 #### [facility] [address] [place], [place], [address] D-DIMER QUANTITATIVE Collected: 11/19/2017 Status: F Source: [place] (DVT/PE) 10:11 AM [facility] REPOSITORY TYPE CODE TESTS RESULT OUT OF [...] Embolism (PE) Performed By: #### L300.8000 #### [facility] [address] [place], [place], [address] COMPLEMENT C3 Collected: 11/19/2017 Status: F Source: [place] 10:11 AM [facility] REPOSITORY TYPE CODE TESTS RESULT OUT OF RANGE REFERENCE UNITS LAB L3100.5700 82-167 mg/dL Normal COMP C3 99 Performed By: #### L3100.5700, L3100.5800, L3200.1300 #### [facility] (refer to report for specific site) refer to report for address and phone number COMPLEMENT C4 Collected: 11/19/2017 Status: F Source: [place] 10:11 AM [facility] REPOSITORY TYPE CODE TESTS RESULT OUT OF RANGE REFERENCE UNITS LAB L3100.5800 14-44 mg/dL Normal COMP C4 24 Performed By: #### L3100.5700, L3100.5800, L3200.1300 #### [facility] (refer to report for specific site) refer to report for address and phone number IMMUNOGLOBULIN G Collected: 11/19/2017 Status: F Source: [place] 10:11 AM [facility] REPOSITORY TYPE CODE TESTS RESULT OUT OF RANGE REFERENCE UNITS LAB L3200.8996 523-3302 mg/dL Normal IMMUNO G 1173 Result Comment: Performed at: [facility] [id number] Site Technician: Yannick Means PhD, Phone: [phone] Performed By: #### L3100.5700, L3100.5800, L3200.1300 #### [facility] (refer to report for specific site) refer to report for address and phone number CROSSMATCH, FREEZE Collected: 11/10/2017 Status: F Source: [place] 10:43 AM HOSPITALS REPOSITORY TYPE CODE TESTS RESULT OUT OF REFERENCE UNITS RANGE LAB HLFXM(LOINC ) CROSSMATCH, COMMENT FREEZE Result Comment: SEE SEPARATE REPORT. Performed By: #### HLFXM #### [facility] [address] [place] [address] HEPATITIS B SURFACE Collected: 11/06/2017 Status: F Source: [place] AG 1:52 PM [facility] REPOSITORY Order Comment: CALL RESULTS TO [phone] TYPE CODE TESTS RESULT OUT OF RANGE REFERENCE UNITS LAB L3100.0400 Negative Normal HB Negative SURF AG Result Comment: Performed at: [facility] [id number] Site Technician: Yannick Means PhD, Phone: [phone] RESULTS CALLED TO SUBHASH HANKS 11/08/17 [address]. REPORT READ BACK BY SUBHASH. RESULTS FAXED TO DR AMBRIZ 11/08/17 [address]. Performed By: #### L3100.0390 #### [facility] (refer to report for specific site) refer to report for address and phone number OPERATIVE REPORT Observed: 10/18/2017 Status: F Source: [place] 12:42 PM [facility] REPOSITORY [facility] Medical Records Department [address] [place] [address] Operative Report 10/18/17 1237 MR#: [id number] Acct: [id number] Name: PAVITHRA PAINTER Rep #: [id number] : 1970 47 From: Diogo Gaviria MD PCP: Mitchell Womack MD, Chi Status: DEP [facility] Y Location: [facility] Problem List (1) Cervical spondylosis Status: Chronic [...] BEDSIDE GLUCOSE Collected: 10/18/2017 Status: F Source: [place] 8:20 AM [facility] REPOSITORY TYPE CODE TESTS RESULT OUT OF RANGE REFERENCE UNITS LAB L501.080 70-110 mg/dL Normal BEDSIDE GLU 110 Result Comment: MANAGEMENT OF PATIENT CARE PER NURSING PROTOCOL Performed By: #### L501.080 #### [facility] Point of Care [facility] [place] [address] ,URINE Collected: 10/18/2017 Status: F Source: [place] 8:00 AM [facility] REPOSITORY TYPE CODE TESTS RESULT OUT OF REFERENCE UNITS RANGE LAB L400.8000 Negative Normal HCGUQUAL Negative Result Comment: Very dilute urine specimens, as indicated by a low specific gravity, may not contain marketing development representative levels of hCG. If is still suspected, a first morning urine specimen should be collected 48 hours later and tested. Performed By: #### L400.7600 #### [facility] [address] [place], [address] CERV SPINE 2 OR 3 Observed: 10/18/2017 Status: F Source: [place] VIEWS 3:27 AM [facility] REPOSITORY [facility] Imaging Services [address] [place] [address] Cerv Spine 2 or 3 Views MR#: [id number] Acct: [id number] Name: PAVITHRA PAINTER Rep #: [id number] : 1970 F 47 From: Jonathan Garcia MD PCP: Vu GARCIA,Mitchell Yadav Status: [facility] Study: Cerv Spine 2 or 3 Views Date of Exam: 10/18/17 Exam# [id number] Ordering Dr: Diogo Gaviria MD PROCEDURE: Cervical facet joint block. DATE OF EXAMINATION: October 18, 2017. INDICATION: Female, 47 years old. FLUOROSCOPY TIME (if supplied): (0:09) minutes/seconds Intraoperative fluoroscopic imaging provided for left C4-C7 facet joint block. RAD/Cerv Spine 2 or 3 Views IMPRESSION: Intraoperative fluoroscopic imaging provided for left C4-C7 facet joint block. Electronically Signed: Jonathan Garcia MD at 13:02 EST Tel [phone], Service support , CC: Diogo Gaviria; Mitchell Womack MD Individual Pension Adviser: Signed Observed: 10/11/2017 Status: F Source: [place] CDIFF (MOLECULAR) 2:00 PM [facility] REPOSITORY Cdiff-Molecular Normal Reference Range = Negative C. Diff DNA Negative- No toxigenic C. Diff DNA Detected NAAT METHOD Testing was performed using nucleic acid amplification Performed By: #### M100.6796 #### [facility] [address] [place], [address] ECHOCARDIOGRAM Observed: 07/29/2017 Status: F Source: [place] 11:39 AM [facility], [address] [place] [address] and TRANSTHORACIC ECHOCARDIOGRAM REPORT Patient Name: PAVITHRA PAINTER [place] [address] [address] Tod Physician: Study Date: 07/29/2017 Referring Lori Pfeiffer MD Physician: MRN/PID: [id number] PCP: Accession/Order#: [id number] [facility] Non Invasive Location: Date of : 1970 Fellow: Gender: F Nurse: Admit Date: Termite Renewal Inspector: Сергей [place] [facility] Admission Status: Outpatient Additional Staff: Height: 162.56 cm CC Report to: Weight: 68.04 kg Study Type: Echocardiogram BSA: 1.73 m2 Blood Pressure: 145 /87 mmHg Diagnosis/ICD: Z01.818 Encounter for other preprocedural examination Indication: Pre-op Cardiovascular exam Procedure/CPT: Echo Complete w/Full Doppler (24771) Patient History: Diabetes: Yes Pertinent History: HTN, [...] cm/s AORTA: Asc Ao Diam 3.05 cm 95793 Lorena Baron MD Electronically signed on 07/29/2017 at 1:06:19 PM Final ALLERGIES ALLERGIES DATE TYPE / CODE NAME / CODE REACTION SEVERITY SOURCE 09/26/2018 Drug adhesive/F0060 Rash Unknown [place] Allergy/237935533( 09617(RXNORM) [facility] SNOM[facility]) Hospital Repository 09/24/2018 Drug NEGRO Angioedema Unknown [place] Allergy/936953282( Inhibitors/F00 [facility] [address] [facility]) 0815918([facility] ) Repository 09/24/2018 Drug Sulfa Rash Unknown [place] Allergy/621411178( (Sulfonamide Community SNOMED CT) Antibiotics)/F Hospital 235224265(RXNO Repository ) 09/24/2018 Drug lisinopril/F00 Angioedema Unknown [place] Allergy/698295593( 5894102(RXNORM [facility] SNOMED [facility]) ) Hospital Repository 09/24/2018 Drug sulfamethoxazo Rash Unknown [place] Allergy/039457454( le/O965642726( Community SNOMED CT) RXNORM) Hospital Repository 09/24/2018 Drug trimethoprim/F Rash Unknown [place] Allergy/419053099( 976719493(RXNO [facility] SNOMED [facility]) ) Hospital Repository 09/24/2018 Miscellaneous Angioderm Unknown Unknown [place] Allergy/583542418( Community SNOM[facility]) Hospital Repository 09/24/2018 Drug diphenhydramin Unknown Unknown [place] Allergy/583065312( e/E997715681(R Community SNOMED CT) XNORM) Hospital Repository ENCOUNTERS ENCOUNTERS ADMIT/DISCHARGE ACCOUNT NUMBER ADMITTING ENCOUNTER LOCATION SOURCE CLASS 09/30/[id number] [facility] ding:RAD Repository 09/24/2018 [id number] Koram, Mariza Ambulatory BMSBuilding: [place] BMS.CF.[facility] Repository 09/24/2018 [id number] Koram, Mraiza Ambulatory BMSBuilding: [place] BMS.On license of [facility] Repository 09/24/2018 [id number] Koram, Mariza Ambulatory BMSBuilding: [place] BMS.On license of [facility] Repository 09/24/2018 [id number] Koram, Mariza Ambulatory BMSBuilding: [place] BMS.On license of [facility] Repository 09/24/2018 [id number] Koram, Mariza Ambulatory BMSBuilding: [place] BMS.CF.[facility] Repository 09/24/2018 [id number] Koram, Mariza Ambulatory BMSBuilding: [place] BMS.On license of [facility] Repository 09/24/2018 [id number] Koram, Mariza Ambulatory BMSBuilding: [place] BMS.CF.[facility] Repository 09/24/2018 [id number] Koram, Mariza Ambulatory BMSBuilding: [place] BMS.On license of [facility] Repository 09/24/2018/09/29/19 [id number] Koram, Mariza Inpatient [place] [address] [facility] ding:DP5Roua Repository : WF650Rov: 1 09/24/2018 [id number] Koram, Mariza Ambulatory BMSBuilding: [place] BMS.On license of [facility] Repository 09/23/2018 [id number] Ambulatory Building:[facility] Repository 09/23/2018 [id number] Ambulatory Building:[facility] Repository 09/23/2018 [id number] Ambulatory Building:[facility] Repository 09/21/2018 [id number] Ambulatory [facility] Repository 09/20/[id number] [facility] ding:PT Repository 09/15/[id number] [facility] ding:POLAB3 Repository 09/09/2018/09/09/20 [id number] Emergency [address] ding:ED Repository 09/08/2018 [id number] Ambulatory [facility] Repository 08/30/2018 [id number] Ambulatory [facility] Repository 08/25/2018 [id number] Ambulatory [facility] Repository 08/25/2018 [id number] Ambulatory [facility] Repository 08/18/[id number] [facility] ding:OPBI Repository 08/14/2018 [id number] Ambulatory BMSBuilding: [place] [facility] Repository 08/12/2018/08/15/20 [id number] Ambulatory BMSBuilding: [place] [address] BMS.CF.[facility] Repository 08/12/2018 [id number] Daniel Ambulatory BMSBuilding: [place] BMS.On license of [facility] Repository 08/12/2018 [id number] [facility] Ambulatory BMSBuilding: [place] BMS.On license of [facility] Repository 08/12/2018 [id number] Daniel Ambulatory BMSBuilding: [place] BMS.CF.Formerly [facility], 1928–1983 Repository 08/12/2018 [id number] Daniel Ambulatory BMSBuilding: [place] BMS.CF.Formerly [facility], [facility] Repository 08/12/2018 [id number] Daniel, Ambulatory BMSBuilding: [place] BMS.On license of [facility] Repository 08/12/2018 [id number] Daniel, Ambulatory BMSBuilding: [place] BMS.On license of [facility] Repository 08/12/2018/08/15/20 [id number] Daniel Inpatient [place] [address] [facility] ding:PCURoom Repository : [id number]: 1 08/07/2018/08/08/20 [id number] Emergency [address] ding:ED Repository 07/28/[id number] [facility] ding:LAB Repository 07/28/2018/07/28/20 [id number] Ambulatory BMSBuilding: [place] 18 BMS.[facility] Hospital Repository 07/26/2018 [id number] Ambulatory BuildinA [facility] FAQ5Qvmr: System 6E8EJSGiq: Repository [id number] 07/19/2018 [id number] Ambulatory [facility] Repository 07/11/2018 [id number] Ambulatory [facility] Repository 06/30/[id number] [facility] ding:MASS Repository 06/17/2018 [id number] Ambulatory Building:[facility] Repository 06/17/2018 [id number] Ambulatory Building:[facility] Repository 06/17/2018 [id number] Ambulatory Building:CER [facility] Repository 06/10/2018 [id number] Ambulatory [facility] Repository 06/10/2018 [id number] Ambulatory [facility] Repository 06/09/[id number] [facility] ding:POLAB3 Repository 06/09/2018/06/09/20 [id number] Ambulatory BMSBuilding: [place] 18 BMS.[facility] Repository 06/02/2018/06/02/20 [id number] Ambulatory [place] ding:OT Repository 06/02/[id number] [facility] ding:CVS Repository 06/02/2018 [id number] Ambulatory BMSBuilding: Pamela [facility] Hospital Repository 05/20/2018 [id number] Ambulatory BuildinA [address]: System [id number]: Repository [id number] 05/19/2018 [id number] Ambulatory BMSBuilding: [place] BMS.CF.[facility] Repository 05/19/2018/05/19/20 [id number] [place] ding:SDCRoom Repository : AC09 05/12/[id number] [facility] ding:LABSPEC Repository 05/12/2018/05/12/20 [id number] Ambulatory BMSBuilding: [place] 18 BMS.[facility] Repository 05/06/2018 [id number] Ambulatory [facility] Repository 04/26/2018 [id number] Ambulatory BuildinA [facility]1Room: System 8K5ADNSvj: Repository [id number] 04/21/2018 [id number] Ambulatory [facility] Repository 04/21/2018 [id number] Ambulatory [facility] Repository 04/12/2018 [id number] Ambulatory [facility] Repository 04/07/2018/04/07/20 [id number] Ambulatory BMSBuilding: Pamela 18 BMS.[facility] Repository 03/17/[id number] [facility] ding:CLSP Repository 03/17/2018 [id number] Ambulatory BMSBuilding: [place] BMS.CF.Formerly [facility], [facility]1983 Repository 03/15/2018/03/15/20 [id number] Ambulatory BMSBuilding: [place] 18 BMS.[facility] Repository 03/10/2018 [id number] Juan, Ambulatory [facility] Repository 03/08/2018/03/08/20 [id number] Ambulatory BMSBuilding: [place] 18 BMS.[facility] Repository 03/08/2018/03/08/20 [id number] Ambulatory BMSBuilding: [place] 18 BMS.Formerly [facility], [facility] Repository 03/04/[id number] [facility] ding:HPRAD Repository 03/04/2018/03/04/20 [id number] Ambulatory BMSBuilding: [place] 18 BMS.Formerly [facility] Hospital Repository 03/03/2018/03/03/20 [id number] Ambulatory BMSBuilding: [place] 18 BMS.[facility] Repository 03/03/[id number] [facility] ding:CLSP Repository 03/01/[id number] [facility] ding:RAD Repository 03/01/2018/03/01/20 [id number] Ambulatory BMSBuilding: [place]ela 18 BMS.[facility] Repository 02/24/2018/02/25/20 [id number] Ambulatory BMSBuilding: [place] 18 BMS.[facility] Repository 02/23/2018 [id number] Ambulatory Building:[facility] Repository 02/23/2018 [id number] Ambulatory Building:[facility] Repository 02/21/2018 [id number] Ambulatory [facility] Repository 02/17/2018 [id number] [facility] 02/17/2018 [id number] Ambulatory [facility] Hospital ding:CVS Repository 02/17/2018/02/18/20 [id number] Ambulatory BMSBuilding: [place] 18 BMS.[facility] Repository 02/10/2018 [id number] Ambulatory [facility] Hospital ding:HPRAD Repository 02/10/2018/02/11/20 [id number] Ambulatory BMSBuilding: [place]ela 18 BMS.[facility] Repository 02/10/2018/02/11/20 [id number] Ambulatory BMSBuilding: [place] 18 BMS.[facility]ly [facility] Repository 02/03/2018 [id number] Ambulatory [facility] Repository 02/03/2018 [id number] Ambulatory BMSBuilding: [place] BMS.CF.Formerly [facility], [facility] Repository 02/01/2018/02/02/20 [id number] Ambulatory [address] Hospital ding:SDC Repository 02/01/2018 [id number] Ambulatory BMSBuilding: [place] BMS.CF.[facility] Hospital Repository 01/31/2018/02/01/20 [id number] Ambulatory BMSBuilding: [place] 18 BMS.[facility] Hospital Repository 01/25/2018 [id number] Ambulatory [facility] Hospital ding:CVS Repository 01/25/2018 [id number] Ambulatory [facility] Hospital ding:CVS Repository 01/25/2018 [id number] Ambulatory BMSBuilding: [facility] Hospital Repository 01/20/2018 [id number] Ambulatory BMSBuilding: [place] BMS.CF.[facility] Repository 01/20/2018 [id number] Ambulatory [facility] Hospital ding:OMD Repository 01/11/2018/01/12/20 [id number] Ambulatory BMSBuilding: [place] [address] Repository 01/11/2018/01/12/20 [id number] Ambulatory BMSBuilding: [place] 18 BMS.[facility] Repository 01/11/2018/01/12/20 [id number] Ambulatory BMSBuilding: [place] 18 BMS.Formerly [facility], [facility] Repository 01/06/2018/01/07/20 [id number] Ambulatory BMSBuilding: [place] 18 BMS.Formerly [facility], [facility] Repository 12/15/2017/12/16/19 [id number] Ambulatory BMSBuilding: [place] 18 BMS.Formerly [facility], [facility] Repository 12/14/2017/12/15/19 [id number] Ambulatory BMSBuilding: [place] 18 BMS.Formerly [facility], [facility] Repository 12/10/2017 [id number] Ambulatory [facility] Repository 12/10/2017 [id number] Ambulatory BMSBuilding: [place] BMS.CF.Formerly [facility], [facility] Repository 12/10/2017/12/11/19 [id number] Ambulatory [address] ding:SDC Repository 12/09/[id number] [facility] ding:CVS Repository 12/08/2017/12/09/19 [id number] Ambulatory BMSBuilding: [place] 18 BMS.[facility]ly [facility], [facility] Repository 12/08/2017 [id number] Ambulatory BMSBuilding: [place] BMS.Formerly [facility], [facility] Repository 11/30/[id number] [facility] ding:POLAB3 Repository 11/19/[id number] [facility] ding:MEDOUTP Repository 11/17/2017 [id number] Ambulatory Building:[facility] Repository 11/17/2017 [id number] Ambulatory Building:[facility] Repository 11/10/2017 [id number] Ambulatory [facility] Repository 11/06/[id number] [facility] ding:LABSPEC Repository 10/18/2017/10/18/19 [id number] Ambulatory [address] ding:SDC Repository 10/11/[id number] [facility] ding:LABSPEC Repository PAYERS PAYERS ENCOUNTER GUARANTOR PAYER SUBSCRIBER SOURCE 09/30/2018 PAVITHRA PAINTER1916 Primary PAVITHRA Rodríguez CHANDOB: [place] MARYLOU Insurance:MEDICARE [id number] [facility] A [facility] [address]Ifq: (330) Number: Repository [phone] () [id number] Date:2018-09-30 09/30/2018 Secondary PAVITHRA H CHANDOB: [place] Insurance:MEDICAIDPol [id number] [facility] icy Number: Hospital [id number] Repository Date:2018-09-30 09/30/2018 Tertiary NOT GIVENUNK Pamela Insurance:SELF PAY [facility]: Effective Repository Date:2018-09-30 09/24/2018 PAVITHRA Rodríguez [id number] Primary PAVITHRA H CHANDOB: Pamela MARYLOU Insurance:MEDICARE [id number] [facility] A [facility] 05493Sjh: (330) Number: Repository [phone] () [id number] Date:2018-09-24 09/24/2018 Secondary PAVITHRA H CHANDOB: [place] Insurance:MEDICAIDPol [id number] [facility] icy Number: Hospital [id number] Repository Date:2018-09-24 09/24/2018 Tertiary NOT GIVENUNK [place] Insurance:SELF PAY [facility] Number: Effective Repository Date:2018-09-24 09/24/2018 PAVITHRA Rodríguez [id number] Primary PAVITHRA H CHANDOB: [place] MARYLOU Insurance:MEDICARE [id number] [facility] [address]Bxu: (330) Number: Repository [phone] () [id number] Date:2018-09-24 09/24/2018 Secondary PAVITHRA H CHANDOB: [place] Insurance:MEDICAIDPol [id number] [facility] icy Number: Hospital [id number] Repository Date:2018-09-24 09/24/2018 Tertiary NOT GIVENUNK Pamela Insurance:SELF PAY [facility] Number: Effective Repository Date:2018-09-24 09/24/2018 PAVITHRA Rodríguez [id number] Primary PAVITHRA H CHANDOB: Pamela MARYLOU Insurance:MEDICARE [id number] [place] PART A [facility] [address]Fqz: (330) Number: Repository [phone] () [id number] Date:2018-09-24 09/24/2018 Secondary PAVITHRA H CHANDOB: [place] Insurance:MEDICAIDPol [id number] [facility] icy Number: Hospital [id number] Repository Date:2018-09-24 09/24/2018 Tertiary NOT GIVENUNK Pam[place] Insurance:SELF PAY [facility] Hospital Number: Effective Repository Date:2018-09-24 09/24/2018 PAVITHRA PAINTER1916 Primary PAVITHRA H CHANDOB: [place] MARYLOU Insurance:MEDICARE [id number] [place] [facility] [address]Duy: (330) Number: Repository [phone] () [id number] Date:2018-09-24 09/24/2018 Secondary PAVITHRA H CHANDOB: [place] Insurance:MEDICAIDPol [id number] Community icy Number: Hospital [id number] Repository Date:2018-09-24 09/24/2018 Tertiary NOT GIVENUNK Pam[place] Insurance:SELF PAY [facility] Hospital Number: Effective Repository Date:2018-09-24 09/24/2018 PAVITHRA Rodríguez [id number] Primary PAVITHRA H CHANDOB: Pamela MARYLOU Insurance:MEDICARE [id number] [place] [facility] [address]Ltc: (330) Number: Repository [phone] () [id number] Date:2018-09-24 09/24/2018 Secondary PAVITHRA H CHANDOB: [place] Insurance:MEDICAIDPol [id number] [facility] icy Number: Hospital [id number] Repository Date:2018-09-24 09/24/2018 Tertiary NOT GIVENUNK Pam[place] Insurance:SELF PAY Community [facility] Hospital Number: Effective Repository Date:2018-09-24 09/24/2018 PAVITHRA H [id number] Primary PAVITHRA H CHANDOB: Pamela MARYLOU Insurance:MEDICARE [id number] [address]Rph: (330) Number: Repository [phone] () [id number] Date:2018-09-24 09/24/2018 Secondary PAVITHRA H CHANDOB: [place] Insurance:MEDICAIDPol [id number] [facility] icy Number: Hospital [id number] Repository Date:2018-09-24 09/24/2018 Tertiary NOT GIVENUNK [place] Insurance:SELF PAY [facility] Hospital Number: Effective Repository Date:2018-09-24 09/24/2018 PAVITHRA H [id number] Primary PAVITHRA H CHANDOB: Pamela MARYLOU Insurance:MEDICARE [id number] [facility] [address]Izi: (330) Number: Repository [phone] () [id number] Date:2018-09-24 09/24/2018 Secondary PAVITHRA H CHANDOB: [place] Insurance:MEDICAIDPol [id number] [facility] icy Number: Hospital [id number] Repository Date:2018-09-24 09/24/2018 Tertiary NOT GIVENUNK Pamela Insurance:SELF PAY [facility] Hospital Number: Effective Repository Date:2018-09-24 09/24/2018 PAVITHRA H [id number] Primary PAVITHRA H CHANDOB: Pamela MARYLOU Insurance:MEDICARE [id number] [facility] [address]1999Phx: (330) Number: Repository [phone] () [id number] Date:2018-09-24 09/24/2018 Secondary PAVITHRA H CHANDOB: [place] Insurance:MEDICAIDPol [id number] [facility] icy Number: Hospital [id number] Repository Date:2018-09-24 09/24/2018 Tertiary NOT GIVENUNK [place] Insurance:SELF PAY [facility] Hospital Number: Effective Repository Date:2018-09-24 09/24/2018 PAVITHRA H [id number] Primary PAVITHRA H CHANDOB: [place] MARYLOU Insurance:MEDICARE [id number] PART [place] [facility] [address]Lbp: (330) Number: Repository [phone] () [id number] Date:2018-09-24 09/24/2018 Secondary PAVITHRA H CHANDOB: [place] Insurance:MEDICAIDPol [id number] Community icy Number: Hospital [id number] Repository Date:2018-09-24 09/24/2018 Tertiary NOT GIVENUNK [place] Insurance:SELF PAY [facility] Hospital Number: Effective Repository Date:2018-09-24 09/24/2018 PAVITHRA H [id number] Primary PAVITHRA H CHANDOB: [place] Insurance:MEDICARE [id number] [facility] [address]Trb: (330) Number: Repository [phone] () [id number] Date:2018-09-24 09/24/2018 Secondary PAVITHRA H CHANDOB: [place] Insurance:MEDICAIDPol [id number] Community icy Number: Hospital [id number] Repository Date:2018-09-24 09/24/2018 Tertiary NOT GIVENUNK [place] Insurance:SELF PAY [facility] Hospital Number: Effective Repository Date:2018-09-24 09/23/2018 PAVITHRA H CHANDOB: Primary PAVITHRA H CHANDOB: [facility] [id number] Insurance:MEDICARE A [id number] [facility] Number: 6 [place], [place] [id number] [facility] [address]Phe: (330) Date:4612-37-79Nohh [address]Aql: (330) Repository [phone] Name:[facility] [phone] () () () 09/23/2018 Secondary PAVITHRA H CHANDOB: [facility] Insurance:MEDICAIDPol [id number] [place] ic Number: 6 [facility] [id number] [facility] Date:6273-96-45Ttgo 80657Jax: (330) Repository Name:SANDRA [phone] () 09/23/2018 PAVITHRA COMBSOB: Primary PAVITHRA H CHANDOB: [facility] Insurance:MEDICARE A [id number] [facility] AND BPolicy Number: 6 [facility] [place] [id number] [place] Center [address]Jzc: (330) Date:7751-08-22Bvhk 385[address]Aao: (330) Repository [phone] Name:CARE Prashant1747 (HP) (HP) (WP) 09/23/2018 Secondary PAVITHRA H CHANDOB: [facility] Insurance:MEDICAIDPol [id number] [place] icy Number: 6 [facility] [id number] [place] Center Date:3985-35-49Ftwo [address]Kpp: (330) Repository Name:SANDRA [phone] () 09/23/2018 PAVITHRA Rodríguez CHANDOB: Primary PAVITHRA H CHANDOB: [facility] [id number] Insurance:MEDICARE A [id number] [facility] AND BPolicy Number: 6 [facility] [place] [id number] [place], [place] Center [address]Sdh: (330) Date:1929-01-31Hmpb [address]Ybr: (330) Repository [phone] Name:CARE [phone] (HP) (HP) (WP) 09/23/2018 Secondary PAVITHRA H CHANDOB: [facility] Insurance:MEDICAIDPol [id number] [place] icy Number: 6 [facility] [id number] [place], [place] Center Date:8814-18-81Mygf [address]Joi: (330) Repository Name:SANDRA [phone] () 09/21/2018 PAVITHRA Rodríguez CHANDOB: Primary PAVITHRA H CHANDOB: [place] [id number] Insurance:[facility] [place] [id number] [facility] 6 [address] Repository [place], [place] Number: [facility] [place] [address]Ydv: (180) [id number] 99852Tka: () Date:Plan Name:[facility] [phone] () 09/21/2018 Secondary PAVITHRA COMBSOB: University Insurance:MedicarePol [id number] [facility] icy Number: 6 [place] Repository [id number] [facility] [place] Date:Plan Name:[facility] [address]Xus: (330) A [phone] () 09/21/2018 Tertiary PAVITHRA COMBSOB: University [facility] [id number] [facility] icy Number: [facility] Rep[facility] [id number] [facility] [place] Date:Plan Name:[facility] [address]Dux: 330) B [phone] () 09/21/2018 Tertiary PAVITHRA COMBSOB: University Insurance[facility] [id number] [facility] icy Number: [facility] Repository [id number] [facility] [place] Date:Plan [address]Fli: (330) Name:[facility] [phone] () [address], [place] [address]RO: 09/20/2018 PAVITHRA PAINTER1916 Primary PAVITHRA COMBSOB: Pamela MARYLOU Insurance:MEDICARE [id number] [place] PART A [facility] [address]Yrs: (330) Number: Repository [phone] () [id number] Date:2002-12-12 09/20/2018 Secondary PAVITHRA COMBSOB: [place] Insurance:MEDICAIDPol [id number] [facility] icy Number: Hospital [id number] Repository Date:2018-01-11 09/20/2018 Tertiary NOT GIVENUNK [place] Insurance:SELF PAY [facility] Hospital Number: Effective Repository Date:2018-02-09 09/15/2018 PAVITHRA Rodríguez [id number] Primary PAVITHRA Rodríguez CHANDOB: [place] MARYLOU Insurance:MEDICARE [id number] [place] [facility] [address]Jml: (330) Number: Repository [phone] () [id number] Date:2018-09-15 09/15/2018 Secondary PAVITHRA COMBSOB: Pamela Insurance:MEDICAIDPol [id number] [facility] icy Number: Hospital [id number] Repository Date:2018-09-15 09/15/2018 Tertiary NOT GIVENUNK Pamela Insurance:SELF PAY [facility] Hospital Number: Effective Repository Date:2018-09-15 09/09/2018 PAVITHRA Rodríguez [id number] Primary PAVITHRA COMBSOB: Pamela MARYLOU Insurance:MEDICARE [id number] [place] [facility] [address]Ffg: (330) Number: Repository [phone] () [id number] Date:2018-09-09 09/09/2018 Secondary PAVITHRA COMBSOB: Pam[place] Insurance:MEDICAIDPol [id number] [facility] icy Number: Hospital [id number] Repository Date:2018-09-09 09/09/2018 Tertiary NOT GIVENUNK [place] Insurance:SELF PAY [facility] Hospital Number: Effective Repository Date:2018-09-09 09/08/2018 PAVITHRA COMBSOB: Primary PAVITHRA COMBSOB: University [id number] Insurance:[facility] [place] [id number] [facility] 6 [facility] [place], [place] Number: [place], [place] [address]Qbz: [phone] [id number] [address]Gpt: () Date:Plan Name:Health () 09/08/2018 Secondary PAVITHRA COMBSOB: University Insurance:MedicarePol [id number] [facility] icy Number: 6 [facility] [id number] [place], [place] Date:Plan Name:[facility] [address]Iub: (330) A [phone] () 09/08/2018 Tertiary PAVITHRA Rodríguez CHANDOB: University [facility] [id number] [facility] icy Number: 6 [place] Repository [id number] [place] Date:Plan Name:[facility] [address]Jiu: (330) B 263174 (HP) 09/08/2018 Tertiary PAVITHRA COMBSOB: [place] Insurance:MedicaidPol [id number] [facility] icy Number: 6 [address] Repository [id number] [place] Date:Plan [address]Gcg: (330) Name:[phone] (HP) [place], [place] [address]XQ: 08/30/2018 PAVITHRA COMBSOB: Primary PAVITHRA COMBSOB: [place] Insurance:Transplants [id number] [facility] RecipientPolicy 6 [facility] Rep[place], [place] Number: [place], [place] [address]Snk: 330 [id number] [address]Uwq: (HP) Date:Plan Name:Health 263174 () 08/25/2018 PAVITHRA COMBSOB: Primary PAVITHRA COMBSOB: [place] Insurance:Transplants [id number] [facility] [place] RecipientPolicy 6 [facility] [place] Number: [facility] [place] [address]Fug: (330) [id number] [address]Dsj: (HP) Date:Plan Name:Health 263174 () 08/25/2018 Secondary PAVITHRA COMBSOB: [place] Insurance:MedicarePol [id number] [facility] icy Number: 6 [address] Repository [id number] [place] Date:Plan Name:[facility] [address]Oit: (330) A 263174 (HP) 08/25/2018 Tertiary PAVITHRA COMBSOB: [place] Insurance:MedicarePol [id number] [facility] icy Number: 6 [place] Repository [id number] [place] Date:Plan Name:[facility] [address]Lrp: (330) B [id number] (HP) 08/25/2018 Tertiary PAVITHRA COMBSOB: [place] Insurance:MedicaidPol [id number] Hospitals icy Number: 6 [place] Repository [id number] [facility] [place] Date:Plan [address]Avh: (330) Name:[phone] (HP) [address], [place] [address]FG: 08/25/2018 PAVITHRA COMBSOB: Primary PAVITHRA COMBSOB: [place] Insurance:[facility] [place] [id number] [facility] 6 [facility] Repository [facility], [place] Number: [facility] [place], [place] [address]Sjc: 330 [id number] [address]Vbh: (HP) Date:Plan Name:[facility] 263174 () 08/25/2018 Secondary PAVITHRA COMBSOB: [place] Insurance:MedicarePol [id number] [facility] icy Number: 6 [facility] Repository [id number] [facility] [place] Date:Plan Name:[facility] [address]Vzp: (330) A 263174 () 08/25/2018 Tertiary PAVITHRA COMBSOB: [place] Insurance:MedicarePol [id number] [facility] icy Number: 6 [facility] Repository [id number] [facility] [place] Date:Plan Name:[facility] [address]Wdq: (330) B [id number] (HP) 08/25/2018 Tertiary PAVITHRA COMBSOB: [place] Insurance:MedicaidPol [id number] [facility] icy Number: 6 [facility] Rep[facility] [id number] [facility], [place] Date:Plan 10681Doq: (330) Name:[phone] (HP) [address], [place] [address]KS: 08/18/2018 PAVITHRA Rodríguez [id number] Primary PAVITHRA COMBSOB: [facility] Insurance:MEDICARE [id number] [facility] [facility] [address]339Pna: (330) Number: Repository [phone] () [id number] Date:2018-05-04 08/18/2018 Secondary PAVITHRA H CHANDOB: [place] Insurance:MEDICAIDPol [id number] Community icy Number: Hospital [id number] Repository Date:2018-05-04 08/18/2018 Tertiary NOT GIVENUNK [place] Insurance:SELF PAY [facility] Number: Effective Repository Date:2018-05-04 08/14/2018 PAVITHRA H [id number] Primary PAVITHRA H CHANDOB: [place] Insurance:MEDICARE [id number] [facility] 95497Uqh: (330) Number: Repository [phone] () [id number] Date:2018-08-12 08/14/2018 Secondary PAVITHRA H CHANDOB: [place] Insurance:MEDICAIDPol [id number] [facility] icy Number: Hospital [id number] Repository Date:2018-08-12 08/14/2018 Tertiary NOT GIVENUNK [place] Insurance:SELF PAY [facility] Hospital Number: Effective Repository Date:2018-08-14 08/12/2018 PAVITHRA H [id number] Primary PAVITHRA H CHANDOB: [place] MARYLOU Insurance:MEDICARE [id number] A [facility] 11464Ykx: (330) Number: Repository [phone] () [id number] Date:2018-08-12 08/12/2018 Secondary PAVITHRA H CHANDOB: [place] Insurance:MEDICAIDPol [id number] Community icy Number: Hospital [id number] Repository Date:2018-08-12 08/12/2018 Tertiary NOT GIVENUNK [place] Insurance:SELF PAY [facility] Hospital Number: Effective Repository Date:2018-08-12 08/12/2018 PAVITHRA H [id number] Primary PAVITHRA H CHANDOB: [place] MARYLOU Insurance:MEDICARE [id number] [facility] [address]Ljh: (330) Number: Repository [phone] () [id number] Date:2018-08-12 08/12/2018 Secondary PAVITHRA H CHANDOB: [place] Insurance:MEDICAIDPol [id number] [facility] icy Number: Hospital [id number] Repository Date:2018-08-12 08/12/2018 Tertiary NOT GIVENUNK [place] Insurance:SELF PAY [facility] Hospital Number: Effective Repository Date:2018-08-12 08/12/2018 PAVITHRA H [id number] Primary PAVITHRA H CHANDOB: [place] MARYLOU Insurance:MEDICARE [id number] [facility] A [facility] [address]92[address]Dyu: (330) Number: Repository [phone] () [id number] Date:2018-08-12 08/12/2018 Secondary PAVITHRA H CHANDOB: [place] Insurance:MEDICAIDPol [id number] [facility] icy Number: Hospital [id number] Repository Date:2018-08-12 08/12/2018 Tertiary NOT GIVENUNK [place] Insurance:SELF PAY [facility] Hospital Number: Effective Repository Date:2018-08-12 08/12/2018 PAVITHRA H [id number] Primary PAVITHRA H CHANDOB: [place] Insurance:MEDICARE [id number] Women's Hospital A [facility] 43644Hbg: (330) Number: Repository [phone] () [id number] Date:2018-08-12 08/12/2018 Secondary PAVITHRA H CHANDOB: [place] Insurance:MEDICAIDPol [id number] [facility] icy Number: Hospital [id number] Repository Date:2018-08-12 08/12/2018 Tertiary NOT GIVENUNK [place] Insurance:SELF PAY [facility] Hospital Number: Effective Repository Date:2018-08-12 08/12/2018 PAVITHRA H [id number] Primary PAVITHRA H CHANDOB: [place] MARYLOU Insurance:MEDICARE [id number] [facility] 54179Zch: (330) Number: Repository [phone] () [id number] Date:2018-08-12 08/12/2018 Secondary PAVITHRA H CHANDOB: [place] Insurance:MEDICAIDPol [id number] [facility] icy Number: Hospital [id number] Repository Date:2018-08-12 08/12/2018 Tertiary NOT GIVENUNK [place] Insurance:SELF PAY [facility] Number: Effective Repository Date:2018-08-12 08/12/2018 PAVITHRA Rodríguez [id number] Primary PAVITHRA H CHANDOB: [place] MARYLOU Insurance:MEDICARE [id number] [place] PART A [facility] 07936Yoo: (330) Number: Repository [phone] () [id number] Date:2018-08-12 08/12/2018 Secondary PAVITHRA H CHANDOB: [place] Insurance:MEDICAIDPol [id number] [facility] icy Number: Hospital [id number] Repository Date:2018-08-12 08/12/2018 Tertiary NOT GIVENUNK [place] Insurance:SELF PAY [facility] Hospital Number: Effective Repository Date:2018-08-12 08/12/2018 PAVITHRA [id number] Primary PAVITHRA H CHANDOB: [place] MARYL[place] Insurance:MEDICARE [id number] [place] PART A [facility] 964[address]Bxn: (330) Number: Repository [phone] () [id number] Date:2018-08-12 08/12/2018 Secondary PAVITHRA H CHANDOB: [place] Insurance:MEDICAIDPol [id number] [facility] icy Number: Hospital [id number] Repository Date:2018-08-12 08/12/2018 Tertiary NOT GIVENUNK [place] Insurance:SELF PAY [facility] Hospital Number: Effective Repository Date:2018-08-12 08/12/2018 PAVITHRA Rodríguez [id number] Primary PAVITHRA H CHANDOB: [place] MARYLOU Insurance:MEDICARE [id number] [facility] A [facility] 22797Fty: (330) Number: Repository [phone] () [id number] Date:2018-08-12 08/12/2018 Secondary PAIVTHRA H CHANDOB: [place] Insurance:MEDICAIDPol [id number] [facility] icy Number: Hospital [id number] Repository Date:2018-08-12 08/12/2018 Tertiary NOT GIVENUNK [place] Insurance:SELF PAY [facility] Number: Effective Repository Date:2018-08-12 08/07/2018 PAVITHRA Rodríguez [id number] Primary PAVITHRA H CHANDOB: [place] MARYLOU Insurance:MEDICARE [id number] [facility] 65205Esl: (330) Number: Repository [phone] () [id number] Date:2018-08-07 08/07/2018 Secondary PAVITHRA H CHANDOB: [place] Insurance:MEDICAIDPol [id number] [facility] icy Number: Hospital [id number] Repository Date:2018-08-07 08/07/2018 Tertiary NOT GIVENUNK [place] Insurance:SELF PAY Community [facility] Hospital Number: Effective Repository Date:2018-08-07 07/28/2018 PAVITHRA Rodríguez [id number] Primary PAVITHRA H CHANDOB: [place] MARYLOU Insurance:MEDICARE [id number] [facility] 25605Wyl: (330) Number: Repository [phone] () [id number] Date:2018-07-28 07/28/2018 Secondary PAVITHRA H CHANDOB: [place] Insurance:MEDICAIDPol [id number] [facility] icy Number: Hospital [id number] Repository Date:2018-07-28 07/28/2018 Tertiary NOT GIVENUNK [place] Insurance:SELF PAY Community [facility] Number: Effective Repository Date:2018-07-28 07/28/2018 PAVITHRA Rodríguez [id number] Primary PAVITHRA H CHANDOB: [place] MARYLOU Insurance:MEDICARE [id number] [facility] [address]Rtv: (330) Number: Repository [phone] () [id number] Date:2018-01-11 07/28/2018 Secondary PAVITHRA H CHANDOB: [place] Insurance:MEDICAIDPol [id number] [facility] icy Number: Hospital [id number] Repository Date:2018-01-11 07/28/2018 Tertiary NOT GIVENUNK [place] Insurance:SELF PAY Community [facility] Number: Effective Repository Date:2018-07-27 07/26/2018 Pavithra ChanDOB: Primary Pavithra ChanDOB: [facility] [id number] Insurance:MedicarePol [id number] [facility] [place] icy Number: [facility] [place] [place] Date: [address]Nyw: (HP) 07/26/2018 Secondary Pavithra ChanDOB: [facility] Insurance:MedicarePol [id number] System icy Number: Effective Repository Date: 07/26/2018 Tertiary Pavithra ChanDOB: [facility] Insurance:MedicaidPol [id number] System icy Number: Effective Repository Date: 07/19/2018 Pavithra ChanDOB: Primary Pavithra ChanDOB: [facility] Insurance:MedicarePol [id number] System [place] icy Number: [facility] [place] [place] Date: [address]Jqw: (HP) 07/19/2018 Secondary Pavithra ChanDOB: [facility] Insurance:MedicarePol [id number] System icy Number: Effective Repository Date: 07/19/2018 Tertiary Pavithra ChanDOB: [facility] Insurance:MedicaidPol [id number] System icy Number: Effective Repository Date: 07/11/2018 PAVITHRA H CHANDOB: Primary PAVITHRA H CHANDOB: [place] Insurance:[facility] [place] [id number] [facility] 6 [address] Repository [facility] [place] Number: [facility] [place] [address]Sxl: [phone] [id number] 037[address]Blw: (HP) Date:Plan Name:[facility] () 07/11/2018 Secondary PAVITHRA H CHANDOB: [place] Insurance:MedicarePol [id number] [facility] icy Number: 6 [address] Repository [id number] [place] Date:Plan Name:[facility] [address]Vwy: (840) A [phone] () 07/11/2018 Tertiary PAVITHRA H CHANDOB: [place] Insurance:MedicarePol [id number] [facility] icy Number: 6 [address] Repository [id number] [place] Date:Plan Name:[facility] [address]Wzs: ([phone] B [phone] (HP) 07/11/2018 Tertiary PAVITHRA H CHANDOB: [place] Insurance:MedicaidPol [id number] [facility] icy Number: 6 [address] Repository [id number] [place], [place] Date:Plan [address]Jqb: (330) Name:[phone] (HP) [address] [address]SV: 06/30/2018 PAVITHRA Rodríguez [id number] [facility]SELF PA[facility] [address]Hjf: (330) Number: Effective Repository [phone] (HP) Date:2017-09-14 06/17/2018 PAVITHRA COMBSOB: Primary PAVITHRA COMBSOB: [facility] Insurance:MEDICARE A [id number] [facility] AND BPolicy Number: 6 [place], [place] [id number] [place] Center [address]Lso: (330) Date:9566-78-34Imqs 15350Uoi: (330) Repository [phone] Name:CARE [id number] (HP) (HP) (WP) 06/17/2018 Secondary PAVITHRA COMBSOB: [facility] Insurance:MEDICAIDPol [id number] [place] icy Number: 6 [facility] [id number] [place] Center Date:5636-67-86Pbjy 59[address]Kvi: (330) Repository Name:SANDRA [phone] () 06/17/2018 PAVITHRA COMBSOB: Primary PAVITHRA COMBSOB: [facility] Insurance:MEDICARE A [id number] [facility] AND BPolicy Number: 6 [place], [place] [id number] [place] Center [address]Vrt: (330) Date:0905-19-23Zpik 92331Zga: (330) Repository [id number] Name:CARE [id number] (HP) (HP) (WP) 06/17/2018 Secondary PAVITHRA COMBSOB: [facility] Insurance:MEDICAIDPol [id number] [place] icy Number: 6 [facility] [id number] [place] Center Date:2822-47-28Ekkv [address]Shm: (330) Repository Name:[facility] [phone] () 06/17/2018 PAVITHRA Rodríguez CHANDOB: Primary PAVITHRA Rodríguez CHANDOB: [facility] Insurance:MEDICARE A [id number] [facility]: 6 [place], [place] [id number] [place], [place] Center [address]Xpq: (330) Date:9428-08-66Evex 550[address]Yba: (330) Repository [phone] Name:[place] [phone] () (HP) (WP) 06/17/2018 Secondary PAVITHRA COMBSOB: [facility] Insurance:MEDICAIDPol [id number] [place] icy Number: 6 [facility] [id number] [facility], [place] Center Date:8023-33-68Dbyu 273[address]Qtv: (330) Repository Name:[facility] [phone] () 06/10/2018 PAVITHRA COMBSOB: Primary PAVITHRA COMBSOB: [place] Insurance:[facility] [place] [id number] [facility] 6 [facility] [place], [place] Number: [place], [place] [address]Czo: 330 [id number] [address]Zoy: () Date:Plan Name:[place] [phone] () 06/10/2018 Secondary PAVITHRA COMBSOB: [place] Insurance:MedicarePol [id number] [facility] icy Number: 6 [facility] [id number] [facility] [place] Date:Plan Name:[facility] [address]Rrz: (330) A [phone] () 06/10/2018 Tertiary PAVITHRA COMBSOB: [place] Insurance:MedicarePol [id number] [facility] icy Number: 6 [address] Repository [id number] [place] Date:Plan Name:[facility] [address]Qsi: (330) B [phone] (HP) 06/10/2018 Tertiary PAVITHRA COMBSOB: [place] Insurance:MedicaidPol [id number] Hospitals icy Number: 6 [address] Repository [id number] [place] Date:Plan [address]Nvq: (330) Name:[phone] (HP) [place], [place] [address]JM: 06/10/2018 PAVITHRA COMBSOB: Primary PAVITHRA COMBSOB: [place] Insurance:[facility] [place] [id number] [facility] 6 [place] Repository [place] Number: [place] [address]Kpm: 330 [id number] [address]Atd: (HP) Date:Plan Name:Health [phone] (HP) 06/10/2018 Secondary PAVITHRA COMBSOB: [place] Insurance:MedicarePol [id number] Hospitals icy Number: [facility] Repository [id number] [place] Date:Plan Name:[facility] [address]Ihk: (330) A [phone] (HP) 06/10/2018 Tertiary PAVITHRA COMBSOB: [place] Insurance:MedicarePol [id number] Hospitals icy Number: 6 [facility] Repository [id number] [place] Date:Plan [facility] [address]Hso: (330) B [phone] (HP) 06/10/2018 Tertiary PAVITHRA COMBSOB: [facility] Insurance:MedicaidPol [id number] Hospitals icy Number: 6 [facility] Repository [id number] [place] Date:Plan [address]761Snv: (330) Name:[phone] (HP) [address], [place] [address]UR: 06/09/2018 PAVITHRA H [id number] Primary PAVITHRA H CHANDOB: [place] MARYLOU Insurance:MEDICARE [id number] [place] PART A [facility] [address]Boc: (330) Number: Repository [phone] () [id number] Date:2018-06-09 06/09/2018 Secondary PAVITHRA H CHANDOB: [place] Insurance:MEDICAIDPol [id number] Community icy Number: Hospital [id number] Repository Date:2018-06-09 06/09/2018 Tertiary NOT GIVENUNK [place] Insurance:SELF PAY [facility] Number: Effective Repository Date:2018-06-09 06/09/2018 PAVITHRA H [id number] Primary PAVITHRA H CHANDOB: [place] M[place] Insurance:MEDICARE [id number] [place] PART A [facility] 1985[address]Lhr: (330) Number: Repository [phone] () [id number] Date:2018-05-24 06/09/2018 Secondary PAVITHRA H CHANDOB: [place] Insurance:MEDICAIDPol [id number] Community icy Number: Hospital [id number] Repository Date:2018-05-24 06/09/2018 Tertiary NOT GIVENUNK [place] Insurance:SELF PAY [facility] Hospital Number: Effective Repository Date:2018-06-09 06/02/2018 PAVITHRA H [id number] Primary PAVITHRA H CHANDOB: [place] MARYLOU Insurance:MEDICARE [id number] A [facility] [address]Vhy: (330) Number: Repository [phone] () [id number] Date:2002-12-12 06/02/2018 Secondary PAVITHRA H CHANDOB: [place] Insurance:MEDICAIDPol [id number] Community icy Number: Hospital [id number] Repository Date:2017-12-12 06/02/2018 Tertiary NOT GIVENUNK [place] Insurance:SELF PAY [facility] Hospital Number: Effective Repository Date:2017-12-29 06/02/2018 PAVITHRA H [id number] Primary PAVITHRA H CHANDOB: [place] MARYLOU Insurance:MEDICARE [id number] PART A [facility] [address]Wpa: (330) Number: Repository [phone] () [id number] Date:2018-05-23 06/02/2018 Secondary PAVITHRA H CHANDOB: [place] Insurance:MEDICAIDPol [id number] [facility] icy Number: Hospital [id number] Repository Date:2018-05-23 06/02/2018 Tertiary NOT GIVENUNK [place] Insurance:SELF PAY [facility] Hospital Number: Effective Repository Date:2018-05-23 06/02/2018 PAVITHRA H [id number] Primary PAVITHRA H CHANDOB: [place] MARYLOU Insurance:MEDICARE [id number] [facility] A [facility] [address]Aqp: (330) Number: Repository [phone] () [id number] Date:2018-05-23 06/02/2018 Secondary PAVITHRA H CHANDOB: [place] Insurance:MEDICAIDPol [id number] [facility] icy Number: Hospital [id number] Repository Date:2018-05-23 06/02/2018 Tertiary NOT GIVENUNK [place] Insurance:SELF PAY [facility] Hospital Number: Effective Repository Date:2018-06-02 05/20/2018 Pavithra ChanDOB: Primary Pavithra ChanDOB: [facility] [id number] Insurance:MedicarePol [id number] [facility] icy Number: Effective Repository [place], [place] Date: [address]Eee: () 05/20/2018 Secondary Pavithra ChanDOB: [facility] Insurance:MedicarePol [id number] System icy Number: Effective Repository Date: 05/20/2018 Tertiary Pavithra ChanDOB: [facility] Insurance:MedicaidPol [id number] System icy Number: Effective Repository Date: 05/19/2018 PAVITHRA H [id number] Primary PAVITHRA H CHANDOB: [place] MARYLOU Insurance:MEDICARE [id number] [facility] A [facility] [address]Kyj: (330) Number: Repository [phone] () [id number] Date:2018-03-28 05/19/2018 Secondary PAVITHRA H CHANDOB: [place] Insurance:MEDICAIDPol [id number] [facility] icy Number: Hospital [id number] Repository Date:2018-03-28 05/19/2018 Tertiary NOT GIVENUNK [place] Insurance:SELF PAY [facility] Hospital Number: Effective Repository Date:2018-05-19 05/19/2018 PAVITHRA H [id number] Primary PAVITHRA H CHANDOB: [place] MARYLOU Insurance:MEDICARE [id number] [place] PART A [facility] [address]Iut: (330) Number: Repository [phone] () [id number] Date:2018-03-28 05/19/2018 Secondary PAVITHRA H CHANDOB: [place] Insurance:MEDICAIDPol [id number] [facility] icy Number: Hospital [id number] Repository Date:2018-03-28 05/19/2018 Tertiary NOT GIVENUNK [place] Insurance:SELF PAY [facility] Hospital Number: Effective Repository Date:2018-03-28 05/12/2018 PAVITHRA Rodríguez [id number] Primary PAVITHRA H CHANDOB: [place] MARYLOU Insurance:MEDICARE [id number] [facility] A [facility] [address]Mpo: (330) Number: Repository [phone] () [id number] Date:2018-05-12 05/12/2018 Secondary PAVITHRA H CHANDOB: [place] Insurance:MEDICAIDPol [id number] [facility] icy Number: Hospital [id number] Repository Date:2018-05-12 05/12/2018 Tertiary NOT GIVENUNK [place] Insurance:SELF PAY [facility] Hospital Number: Effective Repository Date:2018-05-12 05/12/2018 PAVITHRA H [id number] Primary PAVITHRA H CHANDOB: [place] MARYLOU Insurance:MEDICARE [id number] [facility] A [facility] 338[address]Fhk: (330) Number: Repository [phone] () [id number] Date:2018-03-30 05/12/2018 Secondary PAVITHRA H CHANDOB: [place] Insurance:MEDICAIDPol [id number] [facility] icy Number: Hospital [id number] Repository Date:2018-03-30 05/12/2018 Tertiary NOT GIVENUNK [place] Insurance:SELF PAY [facility] Number: Effective Repository Date:2018-05-12 05/06/2018 PAVITHRA COMBSOB: Primary PAVITHRA COMBSOB: University Insurance:[facility] [place] [id number] [facility] 6 [address] Repository [place], [place] Number: [place], [place] [address]Gcy: [phone]) [id number] [address]Kke: (HP) Date:Plan Name:[facility] [phone] () 05/06/2018 Secondary PAVITHRA COMBSOB: University Insurance:MedicarePol [id number] [facility] icy Number: 6 [address] Repository [id number] [place] Date:Plan Name:[facility]ca [address]Qfc: (840) A [phone] () 05/06/2018 Tertiary PAVITHRA COMBSOB: [place] Insurance:MedicarePol [id number] [facility] icy Number: [facility] Repository [id number] [place] Date:Plan Name:[facility]ca [address]Wtd: 330 B [phone] () 05/06/2018 Tertiary PAVITHRA COMBSOB: [place] Insurance:MedicaidPol [id number] [facility] icy Number: 6 [address] Repository [id number] [place] Date:Plan [address]Fjy: (330) Name:[facility] [phone] () [address], [place] [address]DN: 04/26/2018 Pavithra ShannanOB: Primary Pavithra ShannanOB: [facility] Insurance:MedicarePol [id number] [facility] icy Number: Effective Repository [place], [place] Date: [address]Ldi: () 04/26/2018 Secondary [facility] Insurance:MedicarePol [id number] System icy Number: Effective Repository Date: 04/26/2018 Tertiary [facility] Insurance:MedicaidPol [id number] System icy Number: Effective Repository Date: 04/21/2018 Pavithra ChanDOB: Primary Pavithra ChanDOB: [facility] Insurance:MedicarePol [id number] System [place] icy Number: [facility] [place] Date: [address]Xpf: (HP) 04/21/2018 Secondary [facility] Insurance:MedicarePol [id number] System icy Number: Effective Repository Date: 04/21/2018 Tertiary [facility] Insurance:MedicaidPol [id number] System icy Number: Effective Repository Date: 04/21/2018 Pavithra ChanDOB: Primary Pavithra ChanDOB: [facility] Insurance:MedicarePol [id number] System [place] icy Number: Effective [facility] [place] Date: [address]Nkn: (HP) 04/21/2018 Secondary [facility] Insurance:MedicarePol [id number] System icy Number: Effective Repository Date: 04/21/2018 Tertiary [facility] Insurance:MedicaidPol [id number] System icy Number: Effective Repository Date: 04/12/2018 PAVITHRA H CHANDOB: Primary PAVITHRA H CHANDOB: [place] Insurance:[facility] [place] [id number] [facility] [place] [facility] 6 [place] Repository [facility] [place] Number: [place], [place] [address]Nqh: [phone]) [id number] [address]Ksc: (HP) Date:Plan Name:[facility] [phone] (HP) 04/12/2018 Secondary PAVITHRA H CHANDOB: [place] Insurance:MedicarePol [id number] Hospitals icy Number: 6 [address] Repository [id number] [place], [place] Date:Plan Name:[facility] [address]Fwj: [phone]) A [phone] (HP) 04/12/2018 Tertiary PAVITHRA H CHANDOB: [place] Insurance:MedicarePol [id number] [facility] icy Number: 6 [address] Repository [id number] [place] Date:[facility] [address]Pft: [phone] B [phone] (HP) 04/12/2018 Tertiary PAVITHRA COMBSOB: University Insurance:MedicaidPol [id number] Hospitals icy Number: 6 KATELYN Repository [id number] [place], [place] Date:Plan [address]Pvd: (330) Name:Health [phone] (HP) [address], [place] [address]DB: 04/07/2018 PAVITHRA PAINTER1916 Primary PAVITHRA H CHANDOB: [place] Insurance:MEDICARE [id number] [place] PART A [facility] [address]Nkv: (330) Number: Repository [phone] () [id number] Date:2018-03-04 04/07/2018 Secondary PAVITHRA H CHANDOB: [place] Insurance:MEDICAIDPol [id number] [facility] icy Number: Hospital [id number] Repository Date:2018-03-04 04/07/2018 Tertiary NOT GIVENUNK [place] Insurance:SELF PAY [facility] Number: Effective Repository Date:2018-04-07 03/17/2018 PAVITHRA Rodríguez [id number] Primary PAVITHRA H CHANDOB: [place]ARY[place]OU Insurance:MEDICARE [id number] [place] [facility] [address]Ojd: (330) Number: Repository [phone] () [id number] Date:2018-03-09 03/17/2018 Secondary PAVITHRA H CHANDOB: [place] Insurance:MEDICAIDPol [id number] [facility] icy Number: Hospital [id number] Repository Date:2018-03-09 03/17/2018 Tertiary NOT GIVENUNK [place] Insurance:SELF PAY [facility] Number: Effective Repository Date:2018-03-09 03/17/2018 PAVITHRA Rodríguez [id number] Primary PAVITHRA H CHANDOB: [place] MARYLOU Insurance:MEDICARE [id number] [place] [facility] [address]Asm: (330) Number: Repository [phone] () [id number] Date:2018-03-09 03/17/2018 Secondary PAVITHRA COMBSOB: [place] Insurance:MEDICAIDPol [id number] [facility] icy Number: Hospital [id number] Repository Date:2018-03-09 03/17/2018 Tertiary NOT GIVENUNK [place] Insurance:SELF PAY [facility] Hospital Number: Effective Repository Date:2018-03-17 03/15/2018 PAVITHRA Rodríguez [id number] Primary PAVITHRA COMBSOB: [place] Insurance:MEDICARE [id number] [place] [facility] [address]Gim: (330) Number: Repository [phone] () [id number] Date:2018-03-08 03/15/2018 Secondary PAVITHRA COMBSOB: [place] Insurance:MEDICAIDPol [id number] [facility] icy Number: Hospital [id number] Repository Date:2018-03-08 03/15/2018 Tertiary NOT GIVENUNK [place] Insurance:SELF PAY [facility] Hospital Number: Effective Repository Date:2018-03-15 03/10/2018 PAVITHRA COMBSOB: Primary PAVITHRA COMBSOB: University [id number] Insurance:[facility] [place] [id number] [facility] [place] [place] Number: [place], [place] [address]Nzj: [phone] [id number] [address]Hsv: () Date:Plan Name:[facility] 263 () 03/10/2018 Secondary PAVITHRA COMBSOB: University Insurance:MedicarePol [id number] [facility] icy Number: [facility] Rep[facility] [id number] [place], [place] Date:Plan Name:[facility] [address]656Pkx: (330) A [phone] () 03/10/2018 Tertiary PAVITHRA COMBSOB: University Insurance:MedicarePol [id number] [facility] icy Number: [facility] Repository [id number] [place], [place] Date:Plan Name:[facility] [address]Isf: (330) B [phone] () 03/10/2018 Tertiary PAVITHRA H CHANDOB: University Insurance:MedicaidPol [id number] Hospitals icy Number: 6 CANTE[place]Y Repository [id number] [place], [place] Date:Plan [address]Uic: (330) Name:[facility] Oliverio Cherry [phone] () [address], [place] [address]GF: 03/08/2018 PAVITHRA H [id number] Primary PAVITHRA H CHANDOB: [place] MARYLOU Insurance:MEDICARE [id number] [place] [facility] [address]Lzk: (330) Number: Repository [phone] () [id number] Date:2018-02-24 03/08/2018 Secondary PAVITHRA H CHANDOB: [place] Insurance:MEDICAIDPol [id number] [facility] icy Number: Hospital [id number] Repository Date:2018-02-24 03/08/2018 Tertiary NOT GIVENUNK [place] Insurance:SELF PAY [facility] Hospital Number: Effective Repository Date:2018-03-08 03/08/2018 PAVITHRA H [id number] Primary PAVITHRA H CHANDOB: [place] Insurance:MEDICARE [id number] [place] [facility] [address]Ydb: (330) Number: Repository [phone] () [id number] Date:2018-03-04 03/08/2018 Secondary PAVITHRA H CHANDOB: [place] Insurance:MEDICAIDPol [id number] [facility] icy Number: Hospital [id number] Repository Date:2018-03-04 03/08/2018 Tertiary NOT GIVENUNK [place] Insurance:SELF PAY [facility] Hospital Number: Effective Repository Date:2018-03-08 03/04/2018 PAVITHRA H [id number] Primary PAVITHRA H CHANDOB: [place] Insurance:MEDICARE [id number] [place] [facility] 54[address]Hcy: (330) Number: Repository [phone] () [id number] Date:2018-03-04 03/04/2018 Secondary PAVITHRA H CHANDOB: [place] Insurance:MEDICAIDPol [id number] [facility] icy Number: Hospital [id number] Repository Date:2018-03-04 03/04/2018 Tertiary NOT GIVENUNK [place] Insurance:SELF PAY [facility] Number: Effective Repository Date:2018-03-04 03/04/2018 PAVITHRA Rodríguez [id number] Primary PAVITHRA Rodríguez CHANDOB: [place] Insurance:MEDICARE [id number] [place] [facility] [address]Hsa: (330) Number: Repository [phone] () [id number] Date:2018-03-02 03/04/2018 Secondary PAVITHRA H CHANDOB: [place] Insurance:MEDICAIDPol [id number] [facility] icy Number: Hospital [id number] Repository Date:2018-03-02 03/04/2018 Tertiary NOT GIVENUNK [place] Insurance:SELF PAY [facility] Hospital Number: Effective Repository Date:2018-03-04 03/03/2018 PAVITHRA PAINTER1916 Primary PAVITHRA H CHANDOB: [place] Insurance:MEDICARE [id number] [place] [facility] [address]Llj: (330) Number: Repository [phone] () [id number] Date:2018-02-24 03/03/2018 Secondary PAVITHRA Rodríguez CHANDOB: [place] Insurance:MEDICAIDPol [id number] [facility] icy Number: Hospital [id number] Repository Date:2018-02-24 03/03/2018 Tertiary NOT GIVENUNK [place] Insurance:SELF PAY Community [facility] Hospital Number: Effective Repository Date:2018-03-03 03/03/2018 PAVITHRA Rodríguez [id number] Primary PAVITHRA H CHANDOB: [place] Insurance:MEDICARE [id number] [place] [facility] 10774Rzk: (330) Number: Repository [phone] () [id number] Date:2018-02-11 03/03/2018 Secondary PAVITHRA H CHANDOB: [place] Insurance:MEDICAIDPol [id number] [facility] icy Number: Hospital [id number] Repository Date:2018-02-11 03/03/2018 Tertiary NOT GIVENUNK [place] Insurance:SELF PAY [facility] Number: Effective Repository Date:2018-02-11 03/01/2018 PAVITHRA Rodríguez [id number] Primary PAVITHRA H CHANDOB: [place] Insurance:MEDICARE [id number] [facility] [address]Xxh: (330) Number: Repository [phone] () [id number] Date:2018-03-01 03/01/2018 Secondary PAVITHRA H CHANDOB: [place] Insurance:MEDICAIDPol [id number] [facility] icy Number: Hospital [id number] Repository Date:2018-03-01 03/01/2018 Tertiary NOT GIVENUNK [place] Insurance:SELF PAY [facility] Hospital Number: Effective Repository Date:2018-03-01 03/01/2018 PAVITHRA H [id number] Primary PAVITHRA H CHANDOB: [place] Insurance:MEDICARE [id number] [facility] [address]Sii: (330) Number: Repository [phone] () [id number] Date:2018-02-24 03/01/2018 Secondary PAVITHRA H CHANDOB: [place] Insurance:MEDICAIDPol [id number] [facility] icy Number: Hospital [id number] Repository Date:2018-02-24 03/01/2018 Tertiary NOT GIVENUNK [place] Insurance:SELF PAY [facility] Hospital Number: Effective Repository Date:2018-03-01 02/24/2018 PAVITHRA H [id number] Primary PAVITHRA H CHANDOB: [place] Insurance:MEDICARE [id number] [facility] 139[address]Fjc: Number: Repository [phone] [id number] -2 () Date:2018-02-23 02/24/2018 Secondary PAVITHRA H CHANDOB: [place] Insurance:MEDICAIDPol [id number] [facility] icy Number: Hospital [id number] Repository Date:2018-02-23 02/24/2018 Tertiary NOT GIVENUNK [place] Insurance:SELF PAY [facility] Number: Effective Repository Date:2018-02-24 02/23/2018 PAVITHRA H CHANDOB: Primary PAVITHRA H CHANDOB: [facility] Insurance:MEDICARE A [id number] [facility] AND BPolicy Number: 6 [facility] [place] [id number] [place] Center [address]Aas: (330) Date:9339-13-58Rwpo 19705Kqv: (330) Repository [id number] Name:CARE [phone] (HP) (HP) (WP) 02/23/2018 Secondary PAVITHRA Rodríguez CHANDOB: [facility] Insurance:MEDICAIDPol [id number] [place] icy Number: 6 [facility] [id number] [place], [place] Center Date:1481-12-82Ksse [address]66[address]Ygf: (330) Repository Name:SANDRA [phone] () 02/23/2018 PAVITHRA Rodríguez CHANDOB: Primary PAVITHRA H CHANDOB: [facility] Insurance:MEDICARE A [id number] [facility] AND BPolicy Number: 6 [place], [place] [id number] [place], [place] Center [address]Hpj: (330) Date:1968-05-75Mlsp [address]Izk: (330) Repository [id number] Name:CARE 263 (HP) (HP) (WP) 02/23/2018 Secondary PAVITHRA H CHANDOB: [facility] Insurance:MEDICAIDPol [id number] [place] icy Number: 6 [facility] [id number] [place] Center Date:2481-92-25Qhvq [address]Ftr: (330) Repository Name:SANDRA [phone] () 02/21/2018 PAVITHRA H CHANDOB: Primary PAVITHRA H CHANDOB: [place] Insurance:[facility] [place] [id number] [facility] 6 [place], [place] Number: [place], [place] [address]Boh: 330 [id number] [address]Eld: (HP) Date:Plan Name:Health [phone] (HP) 02/21/2018 Secondary PAVITHRA H CHANDOB: University [facility] [id number] [facility] icy Number: 6 [place] Repository [id number] [facility] [place] Date:Plan Name:[facility] [address]Zaf: (330) A [phone] () 02/21/2018 Tertiary PAVITHRA H CHANDOB: University [facility] [id number] [facility] icy Number: 6 [place] Repository [id number] [facility], [place] Date:Plan Name:[facility] [address]Rjp: 330 B 263174 () 02/21/2018 Tertiary PAVITHRA H CHANDOB: University Insurance:MedicaidPol [id number] [facility] icy Number: 6 [address] Repository [id number] [place] Date:Plan [address]Ujp: (330) Name:Health [phone] () [address], [place] [address]SZ: 02/17/2018 PAVITHRA Rodríguez [id number] Primary PAVITHRA H CHANDOB: [place] MARYLOU Insurance:MEDICARE [id number] [facility] A [facility] [address]Ayb: (330) Number: Repository [phone] () [id number] Date:2018-01-11 02/17/2018 Secondary PAVITHRA H CHANDOB: [place] [facility] [id number] [facility] icy Number: Hospital [id number] Repository Date:2018-01-11 02/17/2018 Tertiary NOT GIVENUNK [place] Insurance:SELF PAY [facility] Number: Effective Repository Date:2018-02-17 02/17/2018 PAVITHRA Marcos [id number] Primary PAVITHRA H CHANDOB: [place] Insurance:MEDICARE [id number] [place] [facility] [address]Qzl: (330) Number: Repository [phone] () [id number] Date:2018-01-11 02/17/2018 Secondary PAVITHRA H CHANDOB: [place] Insurance:MEDICAIDPol [id number] Community icy Number: Hospital [id number] Repository Date:2018-01-11 02/17/2018 Tertiary NOT GIVENUNK [place] Insurance:SELF PAY [facility] Number: Effective Repository Date:2018-01-11 02/17/2018 PAVITHRA PAINTER1916 Primary PAVITHRA Rodríguez CHANDOB: [place] Insurance[id number] [facility] [address]Jhu: Number: Repository [phone] [id number] -2 (HP) Date:2018-02-10 02/17/2018 Secondary PAVITHRA Rodríguez CHANDOB: [place] Insurance:MEDICAIDPol [id number] Community icy Number: Hospital [id number] Repository Date:2018-02-10 02/17/2018 Tertiary NOT GIVENUNK [place] Insurance:SELF PAY [facility] Number: Effective Repository Date:2018-02-25 02/10/2018 PAVITHRA PAINTER1916 Primary NOT GIVENUNK [place]ARY[place] Insurance:SELF PAY [facility] [address]Roz: Number: Effective Repository [phone] Date:2018-02-10 () 02/10/2018 PAVITHRA PAINTER1916 Primary PAVITHRA Rodríguez CHANDOB: [place] Insurance:MEDICARE [id number] [facility] [address]Zkl: Number: Repository [phone] [id number] -2 (HP) Date:2018-01-20 02/10/2018 Secondary PAVITHRA Rodríguez CHANDOB: [place] Insurance:MEDICAIDPol [id number] Community icy Number: Hospital [id number] Repository Date:2018-01-20 02/10/2018 Tertiary NOT GIVENUNK [place] Insurance:SELF PAY [facility] Number: Effective Repository Date:2018-02-10 02/10/2018 PAVITHRA Rodríguez [id number] Primary PAVITHRA Rodríguez CHANDOB: [place] Insurance:MEDICARE [id number] A [facility] [address]Jbv: Number: Repository [phone] [id number] -2 (HP) Date:2018-02-04 02/10/2018 Secondary PAVITHRA COMBSOB: [place] Insurance:MEDICAIDPol [id number] Community icy Number: Hospital [id number] Repository Date:2018-02-04 02/10/2018 Tertiary NOT GIVENUNK [place] Insurance:SELF PAY [facility] Number: Effective Repository Date:2018-02-10 02/03/2018 PAVITHRA COMBSOB: Primary PAVITHRA Rodríguez CHANDOB: University [id number] Insurance:[facility] [place] [id number] [facility] 6 [facility] [place], [place] Number: [place] [address]Rvm: [phone]) [id number] [address]Bjo: (HP) Date:Plan Name:[facility] () 02/03/2018 Secondary PAVITHRA COMBSOB: [place] Insurance:MedicarePol [id number] [facility] icy Number: 6 [facility] Repository [id number] [place], [place] Date:Plan Name:[facility] [address]Gfd: (330) A 263 () 02/03/2018 Tertiary PAVITHRA COMBSOB: [place] Insurance:MedicarePol [id number] [facility] icy Number: 6 [facility] Repository [id number] [facility] [place] Date:Plan Name:[facility] [address]Djj: (330) B 263174 (HP) 02/03/2018 Tertiary PAVITHRA COMBSOB: University [facility] [id number] [facility] icy Number: 6 [facility] Repository [id number] [place], [place] Date:Plan [address]Qsg: (330) Name:Health [phone] (HP) [place], [place] [address]PE: 02/03/2018 PAVITHRA Rodríguez [id number] Primary PAVITHRA COMBSOB: [place] Insurance:MEDICARE [id number] [facility] [place] [facility] [address]Tvh: Number: Repository [phone] [id number] -2 (HP) Date:2018-01-25 02/03/2018 Secondary PAVITHRA Rodríguez CHANDOB: [place] Insurance:MEDICAIDPol [id number] Community icy Number: Hospital [id number] Repository Date:2018-01-25 02/03/2018 Tertiary NOT GIVENUNK [place] Insurance:SELF PAY [facility] Hospital Number: Effective Repository Date:2018-02-03 02/01/2018 PAVITHRA Rodríguez [id number] Primary PAVITHRA Rodríguez CHANDOB: [place] Insurance:MEDICARE [id number] Hospital A [facility] [address]Vuh: Number: Repository [phone] [id number] -2 (HP) Date:2018-01-31 02/01/2018 Secondary PAVITHRA Rodríguez CHANDOB: [place] Insurance:MEDICAIDPol [id number] Community icy Number: Hospital [id number] Repository Date:2018-01-31 02/01/2018 Tertiary NOT GIVENUNK [place] Insurance:SELF PAY [facility] Hospital Number: Effective Repository Date:2018-01-31 02/01/2018 PAVITHRA Rodríguez [id number] Primary PAVITHRA Rodríguez CHANDOB: [place] Insurance:MEDICARE [id number] [facility] A [facility] [address]Zzq: Number: Repository [phone] [id number] -2 (HP) Date:2018-01-31 02/01/2018 Secondary PAVITHRA H CHANDOB: [place] Insurance:MEDICAIDPol [id number] Community icy Number: Hospital [id number] Repository Date:2018-01-31 02/01/2018 Tertiary NOT GIVENUNK [place] Insurance:SELF PAY [facility] Hospital Number: Effective Repository Date:2018-02-01 01/31/2018 PAVITHRA Rodríguez [id number] Primary PAVITHRA Rodríguez CHANDOB: [place] Insurance:MEDICARE [id number] [facility] A [facility] [address]Fjn: Number: Repository [phone] [id number] -2 (HP) Date:2018-01-11 01/31/2018 Secondary PAVITHRA Rodríguez CHANDOB: [place] Insurance:MEDICAIDPol [id number] Community icy Number: Hospital [id number] Repository Date:2018-01-11 01/31/2018 Tertiary NOT GIVENUNK [place] Insurance:SELF PAY [facility] Hospital Number: Effective Repository Date:2018-01-31 01/25/2018 PAVITHRA Rodríguez [id number] Primary PAVITHRA Rodríguez CHANDOB: [place] Insurance:MEDICARE [id number] [facility] A [facility] [address]Nuo: Number: Repository [phone] [id number] -2 (HP) Date:2018-01-25 01/25/2018 Secondary PAVITHRA Rodríguez CHANDOB: [place] Insurance:MEDICAIDPol [id number] Community icy Number: Hospital [id number] Repository Date:2018-01-25 01/25/2018 Tertiary NOT GIVENUNK [place] Insurance:SELF PAY [facility] Hospital Number: Effective Repository Date:2018-01-25 01/25/2018 PAVITHRA Rodríguez [id number] Primary PAVITHRA Rodríguez CHANDOB: [place] Insurance:MEDICARE [id number]'s Hospital A [facility] [address]Jhy: Number: Repository [phone] [id number] -2 (HP) Date:2018-01-11 01/25/2018 Secondary PAVITHRA Rodríguez CHANDOB: [place] Insurance:MEDICAIDPol [id number] Community icy Number: Hospital [id number] Repository Date:2018-01-11 01/25/2018 Tertiary NOT GIVENUNK [place] Insurance:SELF PAY [facility] Hospital Number: Effective Repository Date:2018-01-11 01/25/2018 PAVITHRA Rodríguez [id number] Primary PAVITHRA Rodríguez CHANDOB: Pamela [place] Insurance:MEDICARE [id number] [facility] [address]Pqv: Number: Repository [phone] [id number] -2 (HP) Date:2018-01-11 01/25/2018 Secondary PAVITHRA H CHANDOB: [place] Insurance:MEDICAIDPol [id number] [facility] icy Number: Hospital [id number] Repository Date:2018-01-11 01/25/2018 Tertiary NOT GIVENUNK [place] Insurance:SELF PAY [facility] Hospital Number: Effective Repository Date:2018-01-25 01/20/2018 PAVITHRA H [id number] Primary PAVITHRA H CHANDOB: [place] Insurance:MEDICARE [id number] [facility] A [facility] [address]Ebr: (330) Number: Repository [phone] () [id number] Date:2002-12-12 01/20/2018 Secondary PAVITHRA H CHANDOB: [place] Insurance:MEDICAIDPol [id number] [facility] icy Number: Hospital [id number] Repository Date:2016-09-28 01/20/2018 Tertiary NOT GIVENUNK [place] Insurance:SELF PAY [facility] Hospital Number: Effective Repository Date:2018-01-20 01/20/2018 PAVITHRA H [id number] Primary PAVITHRA H CHANDOB: [place] Insurance:MEDICARE [id number] [facility] [address]Kwi: (330) Number: Repository [phone] () [id number] Date:2002-12-12 01/20/2018 Secondary PAVITHRA H CHANDOB: [place] Insurance:MEDICAIDPol [id number] [facility] icy Number: Hospital [id number] Repository Date:2016-09-28 01/20/2018 Tertiary NOT GIVENUNK [place] Insurance:SELF PAY [facility] Hospital Number: Effective Repository Date:2016-12-11 01/11/2018 PAVITHRA H [id number] Primary PAVITHRA H CHANDOB: Pamela [place] Insurance:MEDICARE [id number] [facility] [address]Gul: Number: Repository [phone] [id number] -2 (HP) Date:2017-11-10 01/11/2018 Secondary PAVITHRA H CHANDOB: [place] Insurance:MEDICAIDPol [id number] [facility] icy Number: Hospital [id number] Repository Date:2017-11-10 01/11/2018 Tertiary NOT GIVENUNK [place] Insurance:SELF PAY [facility] Hospital Number: Effective Repository Date:2018-01-07 01/11/2018 PAVITHRA PAINTER1916 Primary PAVITHRA Rodríguez CHANDOB: [place] Insurance:MEDICARE [id number] Health [facility] [address]Kcw: Number: Repository [phone] [id number] -2 (HP) Date:2018-01-04 01/11/2018 Secondary PAVITHRA Rodríguez CHANDOB: [place] Insurance:MEDICAIDPol [id number] [facility] icy Number: Hospital [id number] Repository Date:2018-01-04 01/11/2018 Tertiary NOT GIVENUNK [place] Insurance:SELF PAY [facility] Hospital Number: Effective Repository Date:2018-01-11 01/11/2018 PAVITHRA PAINTER1916 Primary PAVITHRA COMBSOB: Pamela [place] Insurance:MEDICARE [id number] [facility] [address]Lep: Number: Repository [phone] [id number] -2 (HP) Date:2018-01-06 01/11/2018 Secondary PAVITHRA Rodríguez CHANDOB: [place] Insurance:MEDICAIDPol [id number] [facility] icy Number: Hospital [id number] Repository Date:2018-01-06 01/11/2018 Tertiary NOT GIVENUNK [place] Insurance:SELF PAY [facility] Hospital Number: Effective Repository Date:2018-01-11 01/06/2018 PAVITHRA PAINTER1916 Primary PAVITHRA Rodríguez CHANDOB: [place] Insurance:MEDICARE [id number] Women's Hospital A [facility] [address]Enh: Number: Repository [phone] [id number] -2 (HP) Date:2017-12-14 01/06/2018 Secondary PAVITHRA Rodríguez CHANDOB: [place] Insurance:MEDICAIDPol [id number] [facility] icy Number: Hospital [id number] Repository Date:2017-12-14 01/06/2018 Tertiary NOT GIVENUNK [place] Insurance:SELF PAY [facility]: Effective Repository Date:2018-01-06 12/15/2017 PAVITHRA PAINTER1916 Primary PAVITHRA Rodríguez CHANDOB: [place] M[place]LOU Insurance:MEDICARE [id number] [place] PART A [facility] [address]Voz: Number: Repository [phone] [id number] -2 (HP) Date:2017-12-15 12/15/2017 Secondary PAVITHRA COMBSOB: [place] Insurance:MEDICAIDPol [id number] [facility] icy Number: Hospital [id number] Repository Date:2017-12-15 12/15/2017 Tertiary NOT GIVENUNK [place] Insurance:SELF PAY [facility] Number: Effective Repository Date:2017-12-15 12/14/2017 PAVITHRA PAINTER1916 Primary PAVITHRA COMBSOB: [place] MARYLOU Insurance:MEDICARE [id number] [place] PART A [facility] [address]Bok: Number: Repository [phone] [id number] -2 (HP) Date:2017-12-13 12/14/2017 Secondary PAVITHRA Rodríguez CHANDOB: [place] Insurance:MEDICAIDPol [id number] [facility] icy Number: Hospital [id number] Repository Date:2017-12-13 12/14/2017 Tertiary NOT GIVENUNK [place] Insurance:SELF PAY [facility] Hospital Number: Effective Repository Date:2017-12-14 12/10/2017 PAVITHRA Rodríguez CHANDOB: Primary PAVITHRA COMSBOB: [place] [id number] Insurance:[facility] [place] [id number] [facility] [place], [place] Number: [place], [place] [address]Lpe: [phone] [id number] [phone]: () Date:Plan Name:[facility] () 12/10/2017 Secondary PAVITHRA COMBSOB: [place] Insurance:MedicarePol [id number] [facility] icy Number: [facility] Rep[facility] [id number] [place], [place] Date:Plan Name:[facility] [address]Akp: (330) A [phone] (HP) 12/10/2017 Tertiary PAVITHRA Rodríguez CHANDOB: [place] Insurance:MedicarePol [id number] Hospitals icy Number: 6 [place] Repository [id number] [place], [place] Date:Plan Name:Ania [id number]: [phone] B [phone] (HP) 12/10/2017 Tertiary PAVITHRA Rodríguez CHANDOB: [place] Insurance:MedicaidPol [id number] Hospitals icy Number: 6 [address] Repository [id number] [place], [place] Date:Plan [address]Lpz: (330) Name:[phone] (HP) [address], [place] [address]NH: 12/10/2017 PAVITHRA PAINTER1916 Primary PAVITHRA Rodríguez CHANDOB: [place] MARYLOU Insurance:MEDICARE [id number] [facility] A [facility] [address]Nrg: Number: Repository [phone] [id number] -2 (HP) Date:2017-12-08 12/10/2017 Secondary PAVITHRA Rodríguez CHANDOB: [place] Insurance:MEDICAIDPol [id number] [facility] icy Number: Hospital [id number] Repository Date:2017-12-08 12/10/2017 Tertiary NOT GIVENUNK [place] Insurance:SELF PAY [facility] Hospital Number: Effective Repository Date:2017-12-10 12/10/2017 PAVITHRA Rodríguez [id number] Primary PAVITHRA Rodríguez CHANDOB: [place] MARYLOU Insurance:MEDICARE [id number] [facility] A [facility] [address]Ssl: Number: Repository [phone] [id number] -2 (HP) Date:2017-12-08 12/10/2017 Secondary PAVITHRA H CHANDOB: [place] Insurance:MEDICAIDPol [id number] [facility] icy Number: Hospital [id number] Repository Date:2017-12-08 12/10/2017 Tertiary NOT GIVENUNK [place] Insurance:SELF PAY [facility] Hospital Number: Effective Repository Date:2017-12-08 12/09/2017 PAVITHRA Rodríguez [id number] Primary PAVITHRA H CHANDOB: [place] MARYLOU Insurance:MEDICARE [id number] [place] PART A [facility] [address]Kpd: Number: Repository [phone] [id number] -2 (HP) Date:2017-12-09 12/09/2017 Secondary PAVITHRA H CHANDOB: [place] Insurance:MEDICAIDPol [id number] [facility] icy Number: Hospital [id number] Repository Date:2017-12-09 12/09/2017 Tertiary NOT GIVENUNK [place] Insurance:SELF PAY [facility] Hospital Number: Effective Repository Date:2017-12-09 12/08/2017 PAVITHRA H [id number] Primary PAVITHRA H CHANDOB: [place] MARYLOU Insurance:MEDICARE [id number] [facility] A [facility] [address]Lhv: Number: Repository [phone] [id number] -2 (HP) Date:2017-12-08 12/08/2017 Secondary PAVITHRA H CHANDOB: [place] Insurance:MEDICAIDPol [id number] Community icy Number: Hospital [id number] Repository Date:2017-12-08 12/08/2017 Tertiary NOT GIVENUNK [place] Insurance:SELF PAY [facility] Hospital Number: Effective Repository Date:2017-12-08 12/08/2017 PAVITHRA H [id number] Primary PAVITHRA H CHANDOB: [place] Insurance:MEDICARE [id number] [place] PART A [facility] [address]Voy: Number: Repository [phone] [id number] -2 (HP) Date:2017-12-08 12/08/2017 Secondary PAVITHRA H CHANDOB: [place] Insurance:MEDICAIDPol [id number] Community icy Number: Hospital [id number] Repository Date:2017-12-08 12/08/2017 Tertiary NOT GIVENUNK [place] Insurance:SELF PAY [facility] Hospital Number: Effective Repository Date:2017-12-08 11/30/2017 PAVITHRA H [id number] Primary PAVITHRA H CHANDOB: [place] MARYLOU Insurance:MEDICARE [id number] [place] PART A [facility] [address]Hjm: Number: Repository [phone] [id number] -2 (HP) Date:2017-11-30 11/30/2017 Secondary PAVITHRA Rodríguez CHANDOB: [place] Insurance:MEDICAIDPol [id number] [facility] icy Number: Hospital [id number] Repository Date:2017-11-30 11/30/2017 Tertiary NOT GIVENUNK [place] Insurance:SELF PAY [facility] Hospital Number: Effective Repository Date:2017-11-30 11/19/2017 PAVITHRA Rodríguez [id number] Primary PAVITHRA H CHANDOB: [place] Insurance:MEDICARE [id number] A [facility] [address]Jxa: Number: Repository [phone] [id number] -2 (HP) Date:2017-11-18 11/19/2017 Secondary PAVITHRA H CHANDOB: [place] Insurance:MEDICAIDPol [id number] [facility] icy Number: Hospital [id number] Repository Date:2017-11-18 11/19/2017 Tertiary NOT GIVENUNK [place] Insurance:SELF PAY [facility] Number: Effective Repository Date:2017-11-18 11/17/2017 PAVITHRA Rodríguez CHANDOB: Primary PAVITHRA H CHANDOB: [facility] [id number] Insurance:MEDICARE A [id number] [facility] Number: 6 [place], [place] [id number] [facility] [address]Kzh: (330) Date:5469-57-56Exdj [address]56[address]Xcw: (330) Repository [phone] Name:MIRYAM [phone] () (HP) () 11/17/2017 Secondary PAVITHRA H CHANDOB: [facility] Insurance:MEDICAIDPol [id number] [place] ic Number: 6 [facility] [id number] [facility] Date:0216-51-02Xjrw [address]Xjw: (330) Repository Name:SANDRA [phone] () 11/17/2017 PAVITHRA H CHANDOB: Primary PAVITHRA H CHANDOB: [facility] Insurance:MEDICARE A [id number] [facility] 6 [place], [place] [id number] [facility] [place] Center [address]Qhm: (330) Date:4206-92-70Zner [address]Qff: (330) Repository [phone] Name:[place] [phone] () (HP) () 11/17/2017 Secondary PAVITHRA Rodríguez CHANDOB: [facility] Insurance:MEDICAIDPol [id number] [place] icy Number: 6 [facility] [id number] [place] Center Date:9797-81-77Yzwx [address]Rif: (330) Repository Name:[facility] [phone] () 11/10/2017 PAVITHRA Rodríguez CHANDOB: Primary PAVITHRA Rodríguez CHANDOB: [place] Insurance:[facility] [place] [id number] [facility] [facility] [place], [place] Number: [place], [place] [address]Kzp: 330 [id number] [phone]: () Date:Plan Name:[facility] () 11/10/2017 Secondary PAVITHRA COMBSOB: [place] Insurance:MedicarePol [id number] [facility] icy Number: 6 [address] Repository [id number] [place] Date:Plan Name:[facility] [address]Oqa: (330) A [phone] () 11/10/2017 Tertiary PAVITHRA COMBSOB: [place] Insurance:MedicarePol [id number] Hospitals icy Number: 6 [facility] Repository [id number] [place] Date:Plan Name:[facility] [address]Nam: (330) B [phone] () 11/10/2017 Tertiary PAVITHRA COMBSOB: [place] Insurance:MedicaidPol [id number] [facility] icy Number: 6 [facility] [id number] [place] Date:Plan [address]Fdh: 330 Name:[facility] Oliverio Cherry [id number] () 2645[facility] [place] [address]JT: 11/06/2017 PAVITHRA PAINTER1916 Primary PAVITHRA Rodríguez CHANDOB: [place] MARYLOU Insurance:MEDICARE [id number] [place] PART A [facility] [address]Oct: Number: Repository [phone] [id number] -2 (HP) Date:2017-11-06 11/06/2017 Secondary APVITHRA H CHANDOB: [place] Insurance:MEDICAIDPol [id number] [facility] icy Number: Hospital [id number] Repository Date:2017-11-06 11/06/2017 Tertiary NOT GIVENUNK [place] Insurance:SELF PAY [facility] Hospital Number: Effective Repository Date:2017-11-06 10/18/2017 PAVITHRA PAINTER1916 Primary PAVITHRA Rodríguez CHANDOB: [place] MARYLOU Insurance:MEDICARE [id number] [place] PART A [facility] [address]Ehs: Number: Repository [phone] [id number] -2 (HP) Date:2017-09-17 10/18/2017 Secondary PAVITHRA Rodríguez CHANDOB: [place] Insurance:MEDICAIDPol [id number] [facility] icy Number: Hospital [id number] Repository Date:2017-09-17 10/18/2017 Tertiary NOT GIVENUNK [place] Insurance:SELF PAY [facility] Hospital Number: Effective Repository Date:2017-09-17 10/11/2017 PAVITHRA PAINTER1916 Primary PAVITHRA H CHANDOB: [place] MARYLOU Insurance:MEDICARE [id number] [facility] A [facility] [address]Gzn: Number: Repository [phone] [id number] -2 (HP) Date:2017-10-11 10/11/2017 Secondary PAVITHRA H CHANDOB: [place] Insurance:MEDICAIDPol [id number] [facility] icy Number: Hospital [id number] Repository Date:2017-10-11 10/11/2017 Tertiary NOT GIVENUNK [place] Insurance:SELF PAY [facility] Number: Effective Repository Date:2017-10-11
== END ==
PROVIDERS: Family Provider Family Medicine Geriatric Medicine; PCP Family Medicine Geriatric Medicine; Referring Provider Family Medicine Geriatric Medicine; Visit Provider Family Medicine Geriatric Medicine
DX: R15.9 Full incontinence of feces (principal)
CPT/HCPCS: 74018

== ENCOUNTER 2018-10-10 15:38 | Emergency (ER) | payer MEDICARE, MEDICAID, SELFPAY ==
[2018-09-24 14:05] VITALS: BMI 27.8
[2018-10-10 15:44] VITALS: BP 125/72; PULSE 92; RESP 18; TEMP 36.9; O2SAT 98; BMI 27.4
[2018-10-10 16:02] VITALS: BP 125/79; PULSE 92; RESP 17; O2SAT 96
[2018-10-10 16:24] VITALS: BP 107/77; BP 114/84; BP 122/84; PULSE 95; PULSE 97; PULSE 98
[2018-10-10 16:34] LABS: Absolute Lymphocyte Count 0.85 X10^3/ul (0.83-4.51); Absolute Neutrophil Count 9.2 X10^3/uL (2.0-7.7); Basophil# 0.02 X10^3/uL; Basophil% 0.2 % (0-1); Eosinophil# 0.03 X10^3/uL; Eosinophils% 0.3 % (0-5); Hematocrit 36.7 % (37-47); Hemoglobin 11.5 g/dl (12.0-15.0); Lymphocyte # 0.85 X10^3/ul (4.0); Lymphocyte % 7.9 % (19-41); Mean Corp Hgb Conc 31.3 g/gl (32-36); Mean Corpuscular Hgb 31.3 pg (27.0-32.0); Mean Platelet Vol. 9.2 fl (6.2-12.0); Monocyte# 0.59 X10^3/uL; Monocyte% 5.5 % (0-10); Neutrophil # 9.19 X10^3/uL (2.7-7.7); Neutrophil % 85.6 % (47-70); Platelet Count 179 K/mm3 (150-450); RBC Distribution Width CV 15.4 % (11.6-14.6); RBC Distribution Width SD 55.5 fl (35.1-43.9); Red Blood Count 3.67 M/mm3 (4.2-5.4); White Blood Count 10.7 K/mm3 (4.4-11.0)
[2018-10-10 16:38] LABS: POSITIVE COUNT NO; POSITIVE DIFFERENTIAL NO; POSITIVE MORPHOLOGY NO
[2018-10-10 16:55] LABS: Anion Gap 10 (5-15); BUN 21 mg/dL (7-18); BUN/Creat Ratio 4.9 RATIO (10-20); Calcium,Total 8.5 mg/dL (8.5-10.1); Chloride 99 mmol/L (98-107); Creatinine, Serum 4.28 mg/dL (0.55-1.02); EST Glomerular Filtration Rate 12 mL/min (>60); Est Glom Filt Rate - Afr Amer 14 mL/min (>60); Estimated Creatinine Clearance 14.18 ml/min; Glucose 137 mg/dL (74-106); Potassium 4.1 mmol/L (3.5-5.1); Sodium Level 138 mmol/L (136-145)
--- NOTE | 2018-10-10 17:41 | ED.VISSUMM ---
- ER Visit Summary Date of Service: 10/10/18 Chief Complaint: Low blood pressure after dialysis History of Present Illness: The patient is a [address] Ambriz and Dr. Fields. She reports that at dialysis today the checked and her blood pressure was in the 70 systolic. They gave her another 400 mL of saline and she drank 500 mL of water. She states that she is now back to her baseline. States that she felt lightheaded during this. She denies any other symptoms. No palpitations or chest pain. States that they did remove 3 L of dialysis and she got a full course. Review of systems: General: No fever, chills, cold sweats. Cardiovascular: No chest pain, palpitations. Respiratory: No cough, shortness of breath, dyspnea on exertion. Gastrointestinal: No abdominal pain, nausea, vomiting, diarrhea, melena, or hematochezia. Genitourinary: No dysuria, frequency, hematuria. Skin: No rash. Neuro: No headache, numbness, weakness. Physical Examination: Vitals: Stable. Afebrile. General: Well-nourished and well-developed. Head: Normocephalic atraumatic. Neck: Supple, no lymphadenopathy. No JVD. Nontender. Cardiovascular: Regular rate and rhythm. No murmurs. Respiratory: No respiratory distress. Clear to auscultation bilaterally. Abdominal: Soft, nontender, nondistended, normal bowel sounds. No guarding, rebound, or peritoneal signs. Back: Nontender. Extremities: Nontender, no edema. Skin: Normal color, no rash. Neurologic: Alert and oriented ?3. Cranial nerves II through XII are intact. Normal strength and sensation. Psych: Normal affect. Test Results: CBC is more for an H&H 11.5 36.7, segment neutrophils 86, lymphs lites of 8. Chem-7 more for glucose 137, BUN 21, creatinine 4.28. Emergency Department Course and Treatment: Patient had negative orthostatic vital signs while here. She is resting comfortably. I did send one blood culture. We were unable to obtain a second. Treatment Plan: Patient be discharged instructed follow-up with her primary care physician 1-2 days not improving. Return to the emergency department for any worsening symptoms. Disposition: To home in improved and stable condition. Impression: 1. Hypotension, resolved. 2. End-stage renal disease. 3. Anemia. This note was generated with [employer]ue[employer] dictation software. It may contain incorrect words, spelling, and punctuation that were not noted in review of the chart prior to signing ED Disposition - Plan for ED Patient: Disposition: Home or Assisted Living Chief Complaint: Hypotension Instructions: ED Hypotension All Causes Referrals: Mitchell Bowen Chi, MD [Primary Care Provider] - 1-2 Days if not improving
[2018-10-10 17:47] VITALS: BP 130/87; PULSE 102; RESP 22; O2SAT 98
== END 2018-10-10 17:50 | disposition home or self-care (01) ==
PROVIDERS: Emergency Provider Emergency Medicine; Family Provider Family Medicine Geriatric Medicine; PCP Family Medicine Geriatric Medicine
DX: I95.9 Hypotension, unspecified (principal); N18.6 End stage renal disease; D64.9 Anemia, unspecified; Z99.2 Dependence on renal dialysis; I12.0 Hypertensive chronic kidney disease with stage 5 chronic kidney disease or end stage renal disease; E11.9 Type 2 diabetes mellitus without complications; M79.7 Fibromyalgia; M32.9 Systemic lupus erythematosus, unspecified
CPT/HCPCS: 80048; 85025; 87040; 99285; A4216

== ENCOUNTER → 2018-10-12 07:44 | Outpatient (CLI) | payer MEDICARE, MEDICAID, SELFPAY ==
[2018-09-24 14:05] VITALS: BMI 27.8
[2018-10-10 15:44] VITALS: BMI 27.4
--- NOTE | 2018-10-12 07:49 | CT_ITS ---
STUDY: CT ABDOMEN AND PELVIS WITH CONTRAST REASON FOR EXAM: Female, 48 years old. Abdominal pain. History of insulinoma with multiple episodes of hypoglycemia. RADIATION DOSAGE (If Supplied By Facility): CTDIvol = ( 13.39 ) mGy, DLP = ( 707.11 ) mGycm TECHNIQUE: Transaxial images were obtained from the dome of the diaphragm to the symphysis pubis with oral contrast. 100mL ml of Isovue 300 contrast was administered. Sagittal and coronal images were reconstructed. Individualized dose optimization techniques were used for this CT. COMPARISON: Comparison is made with prior study dated April 14, 2016. FINDINGS: Stable mild increased markings at the lung bases suggestive of scarring. The visualized portions of the heart are within normal limits. There is decreased attenuation of the liver consistent with steatosis. Mild hepatomegaly. Normal gallbladder and extrahepatic biliary system. Normal spleen. There is diffuse atrophy of the pancreas. Normal bilateral adrenal glands. Normal right kidney. Normal left kidney. Normal visualized stomach. Normal small intestine. Normal colon. The appendix is visualized and appears normal. There is scattered atherosclerotic calcification of the abdominal aorta, without a demonstrated aneurysm. Normal inferior vena cava. There is borderline retroperitoneal lymphadenopathy with enlarged nodes no greater than 10mm in the short axis diameter. Normal urinary bladder. Normal abdominal wall. Status post bilateral hip replacement causing beam hardening artifacts within the pelvis. CT/Abdomen/Pelvis WITH Contrast IMPRESSION: Fatty infiltration of the liver. Mild hepatomegaly. Stable examination. Electronically Signed: Jonathan Garcia MD at 14:21 EST , Service support ,
== END ==
PROVIDERS: Family Provider Family Medicine Geriatric Medicine; PCP Family Medicine Geriatric Medicine; Referring Provider Family Medicine Geriatric Medicine; Visit Provider Family Medicine Geriatric Medicine
DX: D37.8 Neoplasm of uncertain behavior of other specified digestive organs (principal); R10.9 Unspecified abdominal pain
CPT/HCPCS: 74177; Q9967

== ENCOUNTER 2018-10-16 17:13 | Inpatient (IN) | payer MEDICARE, MEDICAID, SELFPAY ==
[2018-10-16] VITALS (15 sets, daily range): BP systolic 151–221; BP diastolic 90–131; PULSE 90–100; RESP 8–16; TEMP 36.6–36.7; O2SAT 97–100; BMI 44.6; BMI 26.6
--- NOTE | 2018-10-16 17:30 | ED.RN ---
PT DROPPED OFF IN TRIAGE BY BROTHER WHO STATES PT HAS BLOOD GLUCOSE OF 260 AND NOT ACTING RIGHT. PT DROWSY, OPENS EYES TO NAME, HAS SOME DIFFICULTY FOLLOWING INSTRUCTIONS, REPEATS SAME ANSWER FOR EACH QUESTION. ORIENTED TO SELF AND PLACE ONLY.
--- NOTE | 2018-10-16 17:34 | CT_ITS ---
STUDY: CT BRAIN WITHOUT CONTRAST REASON FOR EXAM: Female, 48 years old. Altered mental status. Hyperglycemia, renal failure. RADIATION DOSAGE (If Supplied By Facility): CTDIvol = ( 44.99 ) mGy, DLP = ( 745.49 ) mGycm TECHNIQUE: Transaxial CT imaging of the brain was performed without administration of intravenous contrast material. Individualized dose optimization techniques were used for this CT. COMPARISON: 09/24/2018. FINDINGS: Normal soft tissue structures. Normal calvarium. Normal size ventricles and extra-axial spaces for the patient's age. Normal white matter tracts of the cerebral hemispheres. Normal basal ganglia and thalami. Normal brainstem. Normal cerebellum. There is no intracranial hemorrhage. There are no findings of an acute ischemic infarction. There is a 2.1 cm polyp or retention cyst in the right ethmoid sinus. No change compared to the prior study. The patient is status post bilateral maxillary antrectomy. CT/Brain/Head without Contrast IMPRESSION: 1. No acute findings. 2. Right ethmoid polyp or retention cyst. Electronically Signed: Samira Warner MD at 18:36 EST Tel , Service support ,
--- NOTE | 2018-10-16 17:34 | EKG12_ITS ---
Test Reason : ALTERED LOC Blood Pressure : / mmHG Vent. Rate : 090 BPM Atrial Rate : 090 BPM P-R Int : 168 ms QRS Dur : 090 ms QT Int : 388 ms P-R-T Axes : 060 044 086 degrees QTc Int : 474 ms Normal sinus rhythm Nonspecific ST abnormality Abnormal ECG Confirmed by GARO GARCIA, KERON ([id number]), graphic editor CESAR SIMEON ([id number]) on 10/19/2018 1:41:52 PM Referred By: Mitchell Bowen Confirmed By:KERON WYMAN MD
[2018-10-16] MEDS: hydrALAZINE 20 MG/ML Vial IV (17:56)
--- NOTE | 2018-10-16 18:00 | RAD_ITS ---
STUDY: X-RAY CHEST REASON FOR EXAM: Female, 48 years old. AMS. TECHNIQUE: Portable chest. COMPARISON: 09/24/2018. FINDINGS: Dual-lumen catheter is unchanged in position. The lungs are clear and expanded. There is no demonstrated pleural abnormality. There is mild cardiac enlargement. Normal mediastinum and malorie. Normal visualized pulmonary arteries. Normal visualized aortic arch and descending thoracic aorta. Normal visualized thoracic spine. Normal visualized ribs, clavicles, and shoulders. There is no demonstrated abnormality of the visualized soft tissue structures of the upper abdomen. RAD/Chest 1 View (Portable) IMPRESSION: No acute process. Electronically Signed: Samira Warner MD at 19:05 EST Tel , Service support ,
[2018-10-16 18:03] LABS: Absolute Lymphocyte Count 1.01 X10^3/ul (0.83-4.51); Absolute Neutrophil Count 7.1 X10^3/uL (2.0-7.7); Basophil# 0.01 X10^3/uL; Basophil% 0.1 % (0-1); Eosinophil# 0.14 X10^3/uL; Eosinophils% 1.6 % (0-5); Hematocrit 33.1 % (37-47); Hemoglobin 10.2 g/dl (12.0-15.0); Lymphocyte # 1.01 X10^3/ul (4.0); Lymphocyte % 11.4 % (19-41); Mean Corp Hgb Conc 30.8 g/gl (32-36); Mean Corpuscular Hgb 31.2 pg (27.0-32.0); Mean Corpuscular Volume 101.2 fL (81-99); Mean Platelet Vol. 9.3 fl (6.2-12.0); Monocyte# 0.58 X10^3/uL; Monocyte% 6.5 % (0-10); Neutrophil # 7.09 X10^3/uL (2.7-7.7); Neutrophil % 79.9 % (47-70); Platelet Count 178 K/mm3 (150-450); RBC Distribution Width CV 16.9 % (11.6-14.6); RBC Distribution Width SD 57.2 fl (35.1-43.9); Red Blood Count 3.27 M/mm3 (4.2-5.4); White Blood Count 8.9 K/mm3 (4.4-11.0)
[2018-10-16 18:05] LABS: POSITIVE COUNT NO; POSITIVE DIFFERENTIAL NO; POSITIVE MORPHOLOGY NO
[2018-10-16 18:19] LABS: Anion Gap 8 (5-15); BUN 46 mg/dL (7-18); Calcium,Total 9.4 mg/dL (8.5-10.1); Chloride 104 mmol/L (98-107); Creatinine, Serum 7.62 mg/dL (0.55-1.02); EST Glomerular Filtration Rate 6 mL/min (>60); Est Glom Filt Rate - Afr Amer 7 mL/min (>60); Estimated Creatinine Clearance 7.97 ml/min; Glucose 199 mg/dL (74-106); Potassium 5.2 mmol/L (3.5-5.1); Sodium Level 140 mmol/L (136-145)
[2018-10-16 18:25] LABS: Alcohol, Blood (Medical)-Serum < 3.0 mg/dL
[2018-10-16 18:26] LABS: Bedside Glucose 181 mg/dL (70-110)
[2018-10-16 18:26] LABS: Allen Test POS; Base Excess 1 mmol/L (-2 to +2); Bicarbonate 24.8 mmol/L (22-26); Blood Gas Specimen Type ART; O2 Delivery Device Room Air; PO2 93 mmHG (75-100); SITE L Radial; SO2 98 % (95-99); Time Given 1810; Total Carbon Dioxide 26 mmol/L; pCO2 33.2 mmHg (35-45); pH 7.48 (7.35-7.45)
--- NOTE | 2018-10-16 18:27 | ED.RN ---
lactic acid 2.[address] gomez aware
[2018-10-16 18:28] LABS: Lactic Acid 2.3 mmol/L (0.4-2.0)
[2018-10-16 18:34] LABS: Mucous, Urine 0 SEEN /hpf (<or=2+); Red Blood Cells-Urine 0 SEEN /hpf (0-5); Squamous Epithelial Cells - UA 0 SEEN /hpf (5-10); White Blood Cells 0 SEEN /hpf (0-5)
--- NOTE | 2018-10-16 18:36 | ED.VISSUMM ---
- ER Visit Summary Date of Service: 10/16/18 Chief Complaint: Altered mental status History of Present Illness: The patient is a 48 F presenting with altered mental status. Patient was dropped off by her brother. He left the ER prior to giving history. Patient is confused. She states her blood sugar has been elevated. She has a history of end-stage renal disease and is on dialysis Wednesday. Unknown if she completed her last dialysis. She does state that she has missed dialysis and does not recall her last dialysis. She was admitted in September 2018 for metabolic encephalopathy secondary to uremia. Physical Examination: Blood pressure 170/112, temperature 98.7. pulse ox 100% on room air. HEENT exam is unremarkable. Neck is supple. No meningismus Lungs are clear and equal bilaterally. Heart is regular rate and rhythm. Abdomen is soft nontender nondistended. Extremities are unremarkable. Skin is warm and dry. No focal neurologic deficit. Opens eyes to voice, follows commands. Normal strength and sensation. Remainder of exam is unremarkable. Emergency Department Course and Treatment: EKG is sinus rate of 90. CBC normal except for hemoglobin of 10.2. Chemistries show potassium 5.2, glucose 199, BUN 46, creatinine 7.62. Troponin 0.045. Lactic acid 2.3. Alcohol negative. Tox is negative. Tylenol and salicylate levels are negative. Ketones negative. Ammonia level is 27. ABG pH 7.48, PCO2 33, PO2 93. She was given hydralazine IV. She was given albuterol. Chest x-ray shows cardiomegaly, no acute process. CT head shows no acute process. Patient is awake and follows commands. She continues to be confused. Discussed with Dr Ambriz as patient will require dialysis. Discussed with Dr Finch for admission. Disposition: Admission Impression: Metabolic encephalopathy, uremia This note was generated with Green Bi[employer]icsation software. It may contain incorrect words, spelling, and punctuation that were not noted in review of the chart prior to signing ED Disposition - Plan for ED Patient: Referrals: Mitchell Bowen Chi, MD [Primary Care Provider] -
[2018-10-16 18:39] LABS: Color, Urine Yellow (Yellow); Glucose, Dipstick 100 mg/dl (Normal); Ketone-Dipstick Negative (Negative); Leukocyte Esterase-Dipstick Negative /ul (Negative); Nitrite-Dipstick Negative (Negative); Occult Blood-Urine 25 /ul (Negative); Protein-Dipstick 100 mg/dl (Negative); Urine Bilirubin Dipstick Negative (Negative); Urine Clarity Clear (Clear); Urine Urobilinogen Normal (Normal)
[2018-10-16 19:00] LABS: Amphetamine Urine VISTA NEGATIVE (<1000 ng/mL); Barbiturate Urine VISTA NEGATIVE (< 200 ng/mL); Benzodiazepine Urine VISTA NEGATIVE (< 200 ng/mL); Cocaine Urine VISTA NEGATIVE (< 300 ng/mL); Ecstacy Urine VISTA NEGATIVE (< 500 ng/mL); Methadone Urine VISTA NEGATIVE (< 300 ng/mL); PCP Urine VISTA NEGATIVE (< 25 ng/mL); THC Urine VISTA NEGATIVE (< 50 ng/mL); Vista UDS pH Range 6
[2018-10-16 19:01] LABS: Acetaminophen (Tylenol) Level < 2.0 ug/mL (10.0-30.0); Salicylate < 1.7 mg/dL (2.8-20.0)
[2018-10-16] MEDS: Albuterol 2.5 MG/3 ML VIAL.NEB. INHALATION (19:05)
[2018-10-16 19:11] LABS: Bacteria RARE /hpf (None Seen)
--- NOTE | 2018-10-16 19:34 | PCM.HP.STD ---
History of Present Illness Date of Admission: 10/16/18 Chief Complaint: altered mental status The patient is a 48 year old F with an extensive PMH as listed below. She was admitted via the ED after she was dropped off by her brother. She couldnt give much of a history. Patient is known to me from a previous admission from last month where she was admitted with similar complaints due to missed dialysis and ended up being intubated because of cute metabolic encephalopathy due to severe uremia after she missed dialysis. Patient very confused during review though she is alert. She does not her head in response to every single question but is unable to articulate anything. She cannot see why she is here in the hospital. Unable to do review of systems on account of patient's confusion. In the ED, she was noted to have elevated blood pressure with systolic BP above 200. She has been admitted to be managed for acute metabolic encephalopathy due to uremia from missed dialysis and hypertensive urgency due to fluid overload from missed dialysis. Nephrology spoken to by ED doctor and patient to get dialysis today. [] Past Medical History Past Medical History (Chronic Problems): Chronic Problems (Last Reviewed 08/14/18 @ 10:39 by Cesar Sheth MD) Nonrheumatic mitral (valve) insufficiency (Chronic) Secondary pulmonary arterial hypertension (Chronic) Non-rheumatic tricuspid valve insufficiency (Chronic) End stage renal disease (Chronic) Chronic anemia (Chronic) Hypertension (Chronic) Narcolepsy (Chronic) Lupus nephritis (Chronic) Status post kidney and liver biopsy (fatty liver) Degenerative disc disease, cervical (Chronic) Cervical spondylosis (Chronic) Diabetes mellitus, type II (Chronic) SLE (systemic lupus erythematosus) (Chronic) Medical History: Medical History (Last Reviewed 08/14/18 @ 10:39 by Cesar Sheth MD) Nonrheumatic mitral (valve) insufficiency (Chronic) I34.0 Secondary pulmonary arterial hypertension (Chronic) I27.21 Non-rheumatic tricuspid valve insufficiency (Chronic) I36.1 End stage renal disease (Chronic) N18.6 Chronic anemia (Chronic) D64.9 Hypertension (Chronic) I10 Narcolepsy (Chronic) G47.419 Lupus nephritis (Chronic) M32.14 Status post kidney and liver biopsy (fatty liver) Degenerative disc disease, cervical (Chronic) M50.30 Cervical spondylosis (Chronic) M47.812 Diabetes mellitus, type II (Chronic) E11.9 SLE (systemic lupus erythematosus) (Chronic) M32.9 Allergies LONG Inhibitors Allergy (Verified 10/16/18 17:14) Angioedema adhesive Allergy (Verified 10/16/18 17:14) Rash diphenhydramine [From Benadryl] Allergy (Verified 10/16/18 17:14) Unknown lisinopril Allergy (Verified 10/16/18 17:14) Angioedema Sulfa (Sulfonamide Antibiotics) Allergy (Verified 10/16/18 17:14) Rash sulfamethoxazole [From Bactrim] Allergy (Verified 10/16/18 17:14) Rash trimethoprim [From Bactrim] Allergy (Verified 10/16/18 17:14) Rash Angioderm Adverse Reaction (Unknown, Uncoded 10/16/18 17:14) Unknown Home Medications: Ambulatory Orders Medication Instructions Recorded Duloxetine Hcl [Cymbalta] 120 mg PO DAILY 10/01/16 Hydroxychloroquine [Plaquenil] 200 mg PO BIDCM 10/01/16 Atorvastatin Calcium [Lipitor] 20 mg PO QHS 01/20/18 Pregabalin [Lyrica] 75 mg PO BID 08/12/18 Sevelamer Carbonate [Renvela] 1,600 mg PO TIDCM 08/12/18 Ergocalciferol (Vitamin D2) 50,000 unit PO QMONTH 08/15/18 [Drisdol] Baclofen 10 mg PO TID PRN PRN 09/09/18 Dextran 70/Hypromellose [Nature's 1 drop OP QHS 09/09/18 Tears Eye Drops] Famotidine 10 mg PO DAILY 09/09/18 Fluticasone 0.05% [Flonase Nasal 2 spray NASAL BID 09/09/18 [place]] Metoprolol Tartrate [Lopressor 25 mg PO BID 09/09/18 (beta pippa)] Prednisone 5 mg PO DAILY 09/09/18 Dextroamphetamine/Amphetamine 15 mg PO BID 10/10/18 [Adderall 15 mg Tablet] Loperamide HCl [Loperamide] 4 mg PO BID PRN PRN 10/10/18 Lorazepam [Ativan] 1 mg PO BID PRN PRN 10/10/18 Acetaminophen [Extra Strength 500 mg PO Q6H PRN PRN 10/16/18 Non-Aspirin] Acyclovir [Zovirax] 400 mg PO TID PRN PRN 10/16/18 Calcitriol 0.5 mcg PO DAILY 10/16/18 CycloSPORINE Ophthalmic [Restasis 1 drop EACH EYE BID 10/16/18 Ophthalmic] Dextroamphetamine Sulfate 20 mg PO DAILY 10/16/18 [Dexedrine] Folic Acid/Vit B Complex and C 0.8 mg PO DAILY 10/16/18 [Renal-Lobo Tablet] Lidocaine/Prilocaine 1 applic TP MOWEFR 10/16/18 [Lidocaine-Prilocaine Cream] Montelukast [Singulair] 10 mg PO DAILY 10/16/18 Ondansetron HCl [Zofran] 4 mg PO Q8H PRN PRN 10/16/18 Surgical History: Surgical History (Last Reviewed 08/14/18 @ 10:39 by Cesar Sheth MD) History of esophagogastroduodenoscopy (EGD) Z98.890 Presence of surgically created arteriovenous shunt for hemodialysis Onset Date: ~11/2017 Z99.2 S/P colonoscopy Z98.890 S/P lymph node biopsy Z98.890 S/P nasal polypectomy Z98.890 Status post carpal tunnel release Z98.890 Status post insertion of dialysis catheter Z95.828, Z99.2 Status post total hip replacement, bilateral Z96.643 port removed Surgical History: - - failed AVF left arm, AVF right arm Smoking Status: Never smoker - *Family History Maternal Family History: Family History (Last Reviewed 08/12/18 @ 18:36 by Javi Sanchez DO) Mother Hypertension Kidney disease ALS (amyotrophic lateral sclerosis) Father Heart disease Hypertension Kidney disease Diabetes History Items: Diabetes, High Cholesterol, Heart Disease, Hypertension, Renal Disease, - Paternal Family History: Family History (Last Reviewed 08/12/18 @ 18:36 by Javi Sanchez DO) Mother Hypertension Kidney disease ALS (amyotrophic lateral sclerosis) Father Heart disease Hypertension Kidney disease Diabetes History Items: Diabetes, High Cholesterol, Heart Disease, Hypertension, Renal Disease Sibling Family History: Family History (Last Reviewed 08/12/18 @ 18:36 by Javi Sanchez DO) Mother Hypertension Kidney disease ALS (amyotrophic lateral sclerosis) Father Heart disease Hypertension Kidney disease Diabetes History Items: Diabetes Review of Systems Unable to obtain accurate/complete ROS d/t: Due to patient's acute metabolic encephalopathy; unable to answer questions VTE Information - Inpt Only VTE Present on Admission: No VTE Pharm Prophylaxis ordered?: Yes - Physical Exam General: Alert, Confused, Disoriented HEENT: Atraumatic, PERRLA, EOMI, Normocephalic Oral: Dry Mucosa Neck: Supple, No JVD, Negative Carotid Bruits Lungs: - - Reduced breath sounds bibasilaly with fine crackles bibasally. Cardiovascular: Regular rate, Regular Rhythm, Normal S1, Normal S2, No murmurs Abdomen: Bowel Sounds Present, Soft, Non Tender, Non-Distended, No Hepato-splenomegaly Extremities: No clubbing, No cyanosis, No edema, Capillary Refill Less than 3 Seconds Skin: No rashes, No breakdown, - - dialysis catheter in right side of chest Musculoskeletal: No Tenderness to Palpation of Joints or Extremities Lymphatic: No Cervical, Supraclavicular, or Inguinal Adenopathy Neurological: Cranial nerves II-XII grossly intact Psych/Mental Status: - - confused. Vital Signs Temp Pulse Resp BP Pulse Ox 97.8 F 100 10 L 201/107 H 100 10/16/18 17:15 10/16/18 19:33 10/16/18 19:33 10/16/18 19:33 10/16/18 19:33 Oxygen Flow Rate (L/min) 2 Oxygen Delivery Method Nasal Cannula Weight: 260 lb Body Mass Index (BMI) 44.6 Finger Stick Blood Glucose 181 Microbiology Past 72 Hours 10/16/18 17:50 Influenza Types A,B Direct FA (TIMMY) - Final Mucosa - Nose Laboratory Tests Past 24 Hrs 10/16/18 10/16/18 10/16/18 17:45 17:45 17:45 WBC 8.9 RBC 3.27 L Hgb 10.2 L Hct 33.1 L MCV 101.2 H MCH 31.2 MCHC 30.8 L RDW 16.9 H RDW Differential 57.2 H Plt Count 178 MPV 9.3 Immature Gran % (Auto) 0.500 Neut % (Auto) 79.9 H Lymph % (Auto) 11.4 L [place] % (Auto) 6.5 Eos % (Auto) 1.6 Baso % (Auto) 0.1 Absolute Neuts (auto) 7.1 Absolute Lymphs (auto) 1.01 Total Counted Not Reportable Specimen Type Sample Site pH Bicarbonate Actual POC Total CO2 Base Excess O2 Saturation ABG pCO2 ABG pO2 [place] Test O2 Delivery Device Blood Gas Notified Whom Blood Gas Notified Time Sodium 140 Potassium 5.2 H Chloride 104 Carbon Dioxide 28.0 Anion Gap 8 BUN 46 H Creatinine 7.62 H* Estim Creat Clear Calc 7.97 Est GFR (MDRD) Af Amer 7 L Est GFR (MDRD) Non-Af 6 L BUN/Creatinine Ratio 6.0 L Glucose 199 H Lactic Acid Calcium 9.4 Ammonia Troponin I 0.045 Urine Color Urine Clarity Urine pH Ur Specific [place] Urine Protein Urine Glucose (UA) Urine Ketones Urine Occult Blood Urine Nitrite Urine Bilirubin Urine Urobilinogen Ur Leukocyte Esterase Urine RBC Urine WBC Ur Squamous Epith Cells Urine Bacteria Urine Mucus Salicylates Urine Opiates Screen Urine Methadone Screen Acetaminophen Ur Barbiturates Screen Ur Phencyclidine Scrn Ur Amphetamines Screen U Methamphetamin-MDMA U Benzodiazepines Scrn Urine Cocaine Screen U Cannabinoids Screen Ur Drug Screen Comment Ethyl Alcohol < 3.0 Acetone Level 10/16/18 10/16/18 10/16/18 17:45 17:45 17:45 WBC RBC Hgb Hct MCV MCH MCHC RDW RDW Differential Plt Count MPV Immature Gran % (Auto) Neut % (Auto) Lymph % (Auto) [place] % (Auto) Eos % (Auto) Baso % (Auto) Absolute Neuts (auto) Absolute Lymphs (auto) Total Counted Specimen Type Sample Site pH Bicarbonate Actual POC Total CO2 Base Excess O2 Saturation ABG pCO2 ABG pO2 [place] Test O2 Delivery Device Blood Gas Notified Whom Blood Gas Notified Time Sodium Potassium Chloride Carbon Dioxide Anion Gap BUN Creatinine Estim Creat Clear Calc Est GFR (MDRD) Af Amer Est GFR (MDRD) Non-Af BUN/Creatinine Ratio Glucose Lactic Acid 2.3 H Calcium Ammonia 27.0 Troponin I Urine Color Urine Clarity Urine pH Ur Specific [place] Urine Protein Urine Glucose (UA) Urine Ketones Urine Occult Blood Urine Nitrite Urine Bilirubin Urine Urobilinogen Ur Leukocyte Esterase Urine RBC Urine WBC Ur Squamous Epith Cells Urine Bacteria Urine Mucus Salicylates Urine Opiates Screen Urine Methadone Screen Acetaminophen Ur Barbiturates Screen Ur Phencyclidine Scrn Ur Amphetamines Screen U Methamphetamin-MDMA U Benzodiazepines Scrn Urine Cocaine Screen U Cannabinoids Screen Ur Drug Screen Comment Ethyl Alcohol Acetone Level NEGATIVE 10/16/18 10/16/18 10/16/18 17:45 18:20 18:20 WBC RBC Hgb Hct MCV MCH MCHC RDW RDW Differential Plt Count MPV Immature Gran % (Auto) Neut % (Auto) Lymph % (Auto) [place] % (Auto) Eos % (Auto) Baso % (Auto) Absolute Neuts (auto) Absolute Lymphs (auto) Total Counted Specimen Type Sample Site pH Bicarbonate Actual POC Total CO2 Base Excess O2 Saturation ABG pCO2 ABG pO2 [place] Test O2 Delivery Device Blood Gas Notified Whom Blood Gas Notified Time Sodium Potassium Chloride Carbon Dioxide Anion Gap BUN Creatinine Estim Creat Clear Calc Est GFR (MDRD) Af Amer Est GFR (MDRD) Non-Af BUN/Creatinine Ratio Glucose Lactic Acid Calcium Ammonia Troponin I Urine Color Yellow Urine Clarity Clear Urine pH 8.0 Ur Specific [place] 1.010 Urine Protein 100 H Urine Glucose (UA) 100 H Urine Ketones Negative Urine Occult Blood 25 H Urine Nitrite Negative Urine Bilirubin Negative Urine Urobilinogen Normal Ur Leukocyte Esterase Negative Urine RBC 0 SEEN Urine WBC 0 SEEN Ur Squamous Epith Cells 0 SEEN Urine Bacteria RARE Urine Mucus 0 SEEN Salicylates < 1.7 L Urine Opiates Screen NEGATIVE Urine Methadone Screen NEGATIVE Acetaminophen < 2.0 L Ur Barbiturates Screen NEGATIVE Ur Phencyclidine Scrn NEGATIVE Ur Amphetamines Screen NEGATIVE U Methamphetamin-MDMA NEGATIVE U Benzodiazepines Scrn NEGATIVE Urine Cocaine Screen NEGATIVE U Cannabinoids Screen NEGATIVE Ur Drug Screen Comment Ethyl Alcohol Acetone Level 10/16/18 18:22 WBC RBC Hgb Hct MCV MCH MCHC RDW RDW Differential Plt Count MPV Immature Gran % (Auto) Neut % (Auto) Lymph % (Auto) [place] % (Auto) Eos % (Auto) Baso % (Auto) Absolute Neuts (auto) Absolute Lymphs (auto) Total Counted Specimen Type ART Sample Site L Radial pH 7.48 H Bicarbonate Actual 24.8 POC Total CO2 26 Base Excess 1 O2 Saturation 98 ABG pCO2 33.2 L ABG pO2 93 [place] Test POS O2 Delivery Device Room Air Blood Gas Notified Whom ED Blood Gas Notified Time 1810 Sodium Potassium Chloride Carbon Dioxide Anion Gap BUN Creatinine Estim Creat Clear Calc Est GFR (MDRD) Af Amer Est GFR (MDRD) Non-Af BUN/Creatinine Ratio Glucose Lactic Acid Calcium Ammonia Troponin I Urine Color Urine Clarity Urine pH Ur Specific [place] Urine Protein Urine Glucose (UA) Urine Ketones Urine Occult Blood Urine Nitrite Urine Bilirubin Urine Urobilinogen Ur Leukocyte Esterase Urine RBC Urine WBC Ur Squamous Epith Cells Urine Bacteria Urine Mucus Salicylates Urine Opiates Screen Urine Methadone Screen Acetaminophen Ur Barbiturates Screen Ur Phencyclidine Scrn Ur Amphetamines Screen U Methamphetamin-MDMA U Benzodiazepines Scrn Urine Cocaine Screen U Cannabinoids Screen Ur Drug Screen Comment Ethyl Alcohol Acetone Level POC Glucose 10/16/18 18:08 POC Glucose 181 H Diagnostic Data Brain CT 10/16/18 17:34 IMPRESSION: 1. No acute findings. 2. Right ethmoid polyp or retention cyst. Electronically Signed: Samira Warner MD at 18:36 EST Tel , Service support , Chest X-Ray 10/16/18 18:00 IMPRESSION: No acute process. Electronically Signed: Samira Warner MD at 19:05 EST Tel , Service support , Assessment/Plan All Active Problems (Last Reviewed 08/14/18 @ 10:39 by Cesar Sheth MD) Hyperkalemia (Acute) Extremity edema (Acute) Encephalopathy acute (Acute) 48 y/o admitted with acute metabolic encephalopathy, likely due to missed dialysis 1. Acute metabolic encephalopathy due to uremia patient unable to give much of a history CT brain done was negative. BUN was 46, Cr was 7.62. Bicarb is 28 and lactic acid is 2.3 admit to ICU nephrology consult for urgent dialysis- spoke to Dr Ambriz, who stated patient had been regular at dialysis all of last week. patient thefore to have dialysis Wednesday morning. 2. Hypertensive urgency due to fluid overload from missed dialysis BP was 201/107 at time of review. cant say when she last took her BP meds; on metoprolol IV hydralazine prn to get dialysis tomorrow morning, as under 1. 3. Hyperkalemia: K is 5.2. Due to uremia and missed dialysis. To have dialysis tonight. 4. ESRD due to hypertension as under 1. on sevelamer, 5. SLE: on hydroxychloroquine and prednisone 6. Diabetes mellitus: per previous admission, there was suspicion for insulinoma due to elevated C peptide and frequent hypoglycemia. Was referred to mine motor operator but not likely she has followed up. acchuchecks q4hrly. DVT prophylaxis: heparin Code Visit Inpatient E&M: 17151 Init Hosp L3
--- NOTE | 2018-10-16 20:10 | NURSING ---
pt arrived to unit from ED transported by ED RN. Placed in ICU 2.
[2018-10-16] MEDS: hydrALAZINE 20 MG/ML Vial 10 MG IV (20:51)
[2018-10-16 21:01] LABS: Bedside Glucose 116 mg/dL (70-110)
[2018-10-16 21:51] LABS: Reflex Lactate? Y
[2018-10-16] MEDS: Fluticasone 0.05% 1 SPRAY NASAL.SRY 2 SPRAY NASAL (22:32)
[2018-10-16] MEDS: Heparin Injection (Vial) 5,000 UNIT/ML VIAL 5000 UNIT SC (22:33)
[2018-10-16] MEDS: Glycerin/Hypromellose/PEG400 15 ml Bottle 1 DRP EACH EYE (22:34)
--- NOTE | 2018-10-16 22:39 | NURSING ---
pt unable to maintain awakening, unable to follow commands. Hold PO meds until pt arousable and following commands. Dr. Finch notified.
[2018-10-16 22:52] LABS: Lactic Acid 2.3 mmol/L (0.4-2.0)
[2018-10-16 23:56] LABS: Bedside Glucose 100 mg/dL (70-110)
[2018-10-17] VITALS (32 sets, daily range): BP systolic 116–197; BP diastolic 74–107; PULSE 91–117; RESP 8–23; TEMP 36.6–37.8; O2SAT 99–100
[2018-10-17 00:16] LABS: Allen Test POS; Base Excess 2 mmol/L (-2 to +2); Bicarbonate 26.1 mmol/L (22-26); Blood Gas Specimen Type ART; O2 Delivery Device Room Air; PO2 86 mmHG (75-100); SITE L Radial; SO2 97 % (95-99); Time Given 10; Total Carbon Dioxide 27 mmol/L; pCO2 38.3 mmHg (35-45); pH 7.44 (7.35-7.45)
[2018-10-17] MEDS: hydrALAZINE 20 MG/ML Vial 10 MG IV (03:18)
[2018-10-17 04:31] LABS: Bedside Glucose 83 mg/dL (70-110)
[2018-10-17 04:41] LABS: Bedside Glucose 97 mg/dL (70-110)
[2018-10-17] MEDS: Heparin Injection (Vial) 5,000 UNIT/ML VIAL 5000 UNIT SC ×3 (05:31→21:42)
[2018-10-17 06:16] LABS: Bedside Glucose 95 mg/dL (70-110)
--- NOTE | 2018-10-17 06:45 | CON.PCM_ITS ---
Problem List (1) Hyperkalemia Status: Acute (2) Extremity edema Status: Acute (3) Encephalopathy acute Status: Acute (4) Nonrheumatic mitral (valve) insufficiency Status: Chronic (5) Secondary pulmonary arterial hypertension Status: Chronic (6) Non-rheumatic tricuspid valve insufficiency Status: Chronic (7) End stage renal disease Status: Chronic (8) Chronic anemia Status: Chronic (9) Hypertension Status: Chronic Qualifiers: Hypertension type: essential hypertension Qualified Code(s): I10 - Essential (primary) hypertension (10) Lupus nephritis Status: Chronic Comment: Status post kidney and liver biopsy (fatty liver) (11) Cervical spondylosis Status: Chronic (12) Diabetes mellitus, type II Status: Chronic Qualifiers: Diabetes mellitus complication detail: with other oral complications Qualified Code(s): E11.638 - Type 2 diabetes mellitus with other oral complications (13) SLE (systemic lupus erythematosus) Status: Chronic Reason for Consult Date of Consultation: 10/17/18 Reason for Consultation: Encephalopathy History of Present Illness: The patient is a 48 year old F, with past medical history listed below and well- known to me from previous admissions, who presented to [facility] on 10/16/18 secondary to altered mental status. Patient was reportedly dropped off by her brother and did not provide any history. Patient was noted to be confused, but protecting her airway. Patient does have a history of end- stage renal disease and is supposed to have dialysis on Wednesday, Wednesday and Wednesday. It is unclear if patient has received her dialysis as she does have a history of missing dialysis. On presentation to the ER, patient was noted to be hypertensive at 170/112, but saturating 100% on room air. Patient was noted to have significant edema of the extremities. CBC showed a relative anemia at 10.2, BUN of 46, creatinine of 7.62 and ammonia of 27. ABG at that time was acceptable. Patient was given hydralazine, albuterol and transferred to the intensive care unit for further monitoring. CT scan of the head showed no acute process. Since being in the intensive care unit, patient has remained hemodynamically stable. Patient has not received any dialysis at this point. Patient reportedly does not have a gag reflex, but will open her eyes and look around to voice. Patient quickly falls asleep and is unable to provide any additional history at this time. Patient does see Dr. Ambriz at baseline as noted on previous admissions. Past Medical History Past Medical History (Chronic Problems): Chronic Problems (Last Reviewed 08/14/18 @ 10:39 by Cesar Sheth MD) Nonrheumatic mitral (valve) insufficiency (Chronic) Secondary pulmonary arterial hypertension (Chronic) Non-rheumatic tricuspid valve insufficiency (Chronic) End stage renal disease (Chronic) Chronic anemia (Chronic) Hypertension (Chronic) Narcolepsy (Chronic) Lupus nephritis (Chronic) Status post kidney and liver biopsy (fatty liver) Degenerative disc disease, cervical (Chronic) Cervical spondylosis (Chronic) Diabetes mellitus, type II (Chronic) SLE (systemic lupus erythematosus) (Chronic) Medical History: Medical History (Last Reviewed 08/14/18 @ 10:39 by Cesar Sheth MD) Nonrheumatic mitral (valve) insufficiency (Chronic) I34.0 Secondary pulmonary arterial hypertension (Chronic) I27.21 Non-rheumatic tricuspid valve insufficiency (Chronic) I36.1 End stage renal disease (Chronic) N18.6 Chronic anemia (Chronic) D64.9 Hypertension (Chronic) I10 Narcolepsy (Chronic) G47.419 Lupus nephritis (Chronic) M32.14 Status post kidney and liver biopsy (fatty liver) Degenerative disc disease, cervical (Chronic) M50.30 Cervical spondylosis (Chronic) M47.812 Diabetes mellitus, type II (Chronic) E11.9 SLE (systemic lupus erythematosus) (Chronic) M32.9 Allergies LONG Inhibitors Allergy (Verified 10/16/18 17:14) Angioedema adhesive Allergy (Verified 10/16/18 17:14) Rash diphenhydramine [From Benadryl] Allergy (Verified 10/16/18 17:14) Unknown lisinopril Allergy (Verified 10/16/18 17:14) Angioedema Sulfa (Sulfonamide Antibiotics) Allergy (Verified 10/16/18 17:14) Rash sulfamethoxazole [From Bactrim] Allergy (Verified 10/16/18 17:14) Rash trimethoprim [From Bactrim] Allergy (Verified 10/16/18 17:14) Rash Angioderm Adverse Reaction (Unknown, Uncoded 10/16/18 17:14) Unknown Home Medications: Ambulatory Orders Medication Instructions Recorded Duloxetine Hcl [Cymbalta] 120 mg PO DAILY 10/01/16 Hydroxychloroquine [Plaquenil] 200 mg PO BIDCM 10/01/16 Atorvastatin Calcium [Lipitor] 20 mg PO QHS 01/20/18 Pregabalin [Lyrica] 75 mg PO BID 08/12/18 Sevelamer Carbonate [Renvela] 1,600 mg PO TIDCM 08/12/18 Ergocalciferol (Vitamin D2) 50,000 unit PO QMONTH 08/15/18 [Drisdol] Baclofen 10 mg PO TID PRN PRN 09/09/18 Dextran 70/Hypromellose [Nature's 1 drop OP QHS 09/09/18 Tears Eye Drops] Famotidine 10 mg PO DAILY 09/09/18 Fluticasone 0.05% [Flonase Nasal 2 spray NASAL BID 09/09/18 Wright] Metoprolol Tartrate [Lopressor 25 mg PO BID 09/09/18 (beta pippa)] Prednisone 5 mg PO DAILY 09/09/18 Dextroamphetamine/Amphetamine 15 mg PO BID 10/10/18 [Adderall 15 mg Tablet] Loperamide HCl [Loperamide] 4 mg PO BID PRN PRN 10/10/18 Lorazepam [Ativan] 1 mg PO BID PRN PRN 10/10/18 Acetaminophen [Extra Strength 500 mg PO Q6H PRN PRN 10/16/18 Non-Aspirin] Acyclovir [Zovirax] 400 mg PO TID PRN PRN 10/16/18 Calcitriol 0.5 mcg PO DAILY 10/16/18 CycloSPORINE Ophthalmic [Restasis 1 drop EACH EYE BID 10/16/18 Ophthalmic] Dextroamphetamine Sulfate 20 mg PO DAILY 10/16/18 [Dexedrine] Folic Acid/Vit B Complex and C 0.8 mg PO DAILY 10/16/18 [Renal-Lobo Tablet] Lidocaine/Prilocaine 1 applic TP MOWEFR 10/16/18 [Lidocaine-Prilocaine Cream] Montelukast [Singulair] 10 mg PO DAILY 10/16/18 Ondansetron HCl [Zofran] 4 mg PO Q8H PRN PRN 10/16/18 Surgical History: Surgical History (Last Reviewed 08/14/18 @ 10:39 by Cesar Sheth MD) History of esophagogastroduodenoscopy (EGD) Z98.890 Presence of surgically created arteriovenous shunt for hemodialysis Onset Date: ~11/2017 Z99.2 S/P colonoscopy Z98.890 S/P lymph node biopsy Z98.890 S/P nasal polypectomy Z98.890 Status post carpal tunnel release Z98.890 Status post insertion of dialysis catheter Z95.828, Z99.2 Status post total hip replacement, bilateral Z96.643 port removed Surgical History: - - failed AVF left arm, AVF right arm Smoking Status: Never smoker - *Family History Maternal Family History: Family History (Last Reviewed 08/12/18 @ 18:36 by Javi Sanchez DO) Mother Hypertension Kidney disease ALS (amyotrophic lateral sclerosis) Father Heart disease Hypertension Kidney disease Diabetes History Items: Diabetes, High Cholesterol, Heart Disease, Hypertension, Renal Disease, - Paternal Family History: Family History (Last Reviewed 08/12/18 @ 18:36 by Javi Sanchez DO) Mother Hypertension Kidney disease ALS (amyotrophic lateral sclerosis) Father Heart disease Hypertension Kidney disease Diabetes History Items: Diabetes, High Cholesterol, Heart Disease, Hypertension, Renal Disease Sibling Family History: Family History (Last Reviewed 08/12/18 @ 18:36 by Javi Sanchez DO) Mother Hypertension Kidney disease ALS (amyotrophic lateral sclerosis) Father Heart disease Hypertension Kidney disease Diabetes History Items: Diabetes Review of Systems Unable to obtain accurate/complete ROS d/t: Encephalopathy Objective: Chest x-ray was personally reviewed and shows no acute infiltrate. CT scan of the head is read as no acute process. - Physical Exam General: - - RASS -1. Anasarca. Appears older than stated age. HEENT: Atraumatic, PERRLA, EOMI, Normocephalic, - - Significant scleral injection with mild scleral edema. Oral: Moist Mucosa, No Gingival or Mucosal Lesions/ Ulcerations Neck: Supple, No Nodes, Trachea Midline, JVD, Right, - - Tunneled hemodialysis line is clean, dry and intact. Lungs: Clear to auscultation, Normal air movement, No rhonchi, No wheeze, No rales, - - Symmetric expansion. No dullness to percussion. Cardiovascular: Regular rate, Regular Rhythm, Normal S1, Normal S2, No murmurs, No rub noted, No Gallop Abdomen: Bowel Sounds Present, Soft, Non Tender, Non-Distended Extremities: No clubbing, No cyanosis, Edema Skin: No rashes, No breakdown, - - No signs of trauma appreciated. Musculoskeletal: No Tenderness to Palpation of Joints or Extremities Lymphatic: No Cervical, Supraclavicular, or Inguinal Adenopathy Neurological: Cranial nerves II-XII grossly intact, Neuro grossly intact, Motor Exam 5/5 strength throughout Psych/Mental Status: Flat Affect Vital Signs Temp Pulse Resp BP Pulse Ox 36.9 C 101 H 10 L 167/98 H 99 10/17/18 04:00 10/17/18 06:00 10/17/18 06:00 10/17/18 06:00 10/17/18 06:00 Oxygen Flow Rate (L/min) 2 Oxygen Delivery Method Room Air Weight: 71 kg Body Mass Index (BMI) 26.6 Finger Stick Blood Glucose 181 Intake and Output for Last 24 Hours 10/15/18 10/16/18 10/17/18 23:59 23:59 23:59 Intake Total 15 / 15 Output Total 700 / 700 Balance -685 / -685 Microbiology Past 72 Hours 10/16/18 17:50 Influenza Types A,B Direct FA (TIMMY) - Final Mucosa - Nose Laboratory Tests Past 24 Hrs 10/16/18 10/16/18 10/16/18 17:45 17:45 17:45 WBC 8.9 RBC 3.27 L Hgb 10.2 L Hct 33.1 L MCV 101.2 H MCH 31.2 MCHC 30.8 L RDW 16.9 H RDW Differential 57.2 H Plt Count 178 MPV 9.3 Immature Gran % (Auto) 0.500 Neut % (Auto) 79.9 H Lymph % (Auto) 11.4 L [place] % (Auto) 6.5 Eos % (Auto) 1.6 Baso % (Auto) 0.1 Absolute Neuts (auto) 7.1 Absolute Lymphs (auto) 1.01 Total Counted Not Reportable Specimen Type Sample Site pH Bicarbonate Actual POC Total CO2 Base Excess O2 Saturation ABG pCO2 ABG pO2 Romeo Test O2 Delivery Device Blood Gas Notified Whom Blood Gas Notified Time Sodium 140 Potassium 5.2 H Chloride 104 Carbon Dioxide 28.0 Anion Gap 8 BUN 46 H Creatinine 7.62 H* Estim Creat Clear Calc 7.97 Est GFR (MDRD) Af Amer 7 L Est GFR (MDRD) Non-Af 6 L BUN/Creatinine Ratio 6.0 L Glucose 199 H Lactic Acid Calcium 9.4 Ammonia Troponin I 0.045 Urine Color Urine Clarity Urine pH Ur Specific [place] Urine Protein Urine Glucose (UA) Urine Ketones Urine Occult Blood Urine Nitrite Urine Bilirubin Urine Urobilinogen Ur Leukocyte Esterase Urine RBC Urine WBC Ur Squamous Epith Cells Urine Bacteria Urine Mucus Salicylates Urine Opiates Screen Urine Methadone Screen Acetaminophen Ur Barbiturates Screen Ur Phencyclidine Scrn Ur Amphetamines Screen U Methamphetamin-MDMA U Benzodiazepines Scrn Urine Cocaine Screen U Cannabinoids Screen Ur Drug Screen Comment Ethyl Alcohol < 3.0 Acetone Level 10/16/18 10/16/18 10/16/18 17:45 17:45 17:45 WBC RBC Hgb Hct MCV MCH MCHC RDW RDW Differential Plt Count MPV Immature Gran % (Auto) Neut % (Auto) Lymph % (Auto) [place] % (Auto) Eos % (Auto) Baso % (Auto) Absolute Neuts (auto) Absolute Lymphs (auto) Total Counted Specimen Type Sample Site pH Bicarbonate Actual POC Total CO2 Base Excess O2 Saturation ABG pCO2 ABG pO2 Romeo Test O2 Delivery Device Blood Gas Notified Whom Blood Gas Notified Time Sodium Potassium Chloride Carbon Dioxide Anion Gap BUN Creatinine Estim Creat Clear Calc Est GFR (MDRD) Af Amer Est GFR (MDRD) Non-Af BUN/Creatinine Ratio Glucose Lactic Acid 2.3 H Calcium Ammonia 27.0 Troponin I Urine Color Urine Clarity Urine pH Ur Specific [place] Urine Protein Urine Glucose (UA) Urine Ketones Urine Occult Blood Urine Nitrite Urine Bilirubin Urine Urobilinogen Ur Leukocyte Esterase Urine RBC Urine WBC Ur Squamous Epith Cells Urine Bacteria Urine Mucus Salicylates Urine Opiates Screen Urine Methadone Screen Acetaminophen Ur Barbiturates Screen Ur Phencyclidine Scrn Ur Amphetamines Screen U Methamphetamin-MDMA U Benzodiazepines Scrn Urine Cocaine Screen U Cannabinoids Screen Ur Drug Screen Comment Ethyl Alcohol Acetone Level NEGATIVE 10/16/18 10/16/18 10/16/18 17:45 18:20 18:20 WBC RBC Hgb Hct MCV MCH MCHC RDW RDW Differential Plt Count MPV Immature Gran % (Auto) Neut % (Auto) Lymph % (Auto) [place] % (Auto) Eos % (Auto) Baso % (Auto) Absolute Neuts (auto) Absolute Lymphs (auto) Total Counted Specimen Type Sample Site pH Bicarbonate Actual POC Total CO2 Base Excess O2 Saturation ABG pCO2 ABG pO2 Romeo Test O2 Delivery Device Blood Gas Notified Whom Blood Gas Notified Time Sodium Potassium Chloride Carbon Dioxide Anion Gap BUN Creatinine Estim Creat Clear Calc Est GFR (MDRD) Af Amer Est GFR (MDRD) Non-Af BUN/Creatinine Ratio Glucose Lactic Acid Calcium Ammonia Troponin I Urine Color Yellow Urine Clarity Clear Urine pH 8.0 Ur Specific [place] 1.010 Urine Protein 100 H Urine Glucose (UA) 100 H Urine Ketones Negative Urine Occult Blood 25 H Urine Nitrite Negative Urine Bilirubin Negative Urine Urobilinogen Normal Ur Leukocyte Esterase Negative Urine RBC 0 SEEN Urine WBC 0 SEEN Ur Squamous Epith Cells 0 SEEN Urine Bacteria RARE Urine Mucus 0 SEEN Salicylates < 1.7 L Urine Opiates Screen NEGATIVE Urine Methadone Screen NEGATIVE Acetaminophen < 2.0 L Ur Barbiturates Screen NEGATIVE Ur Phencyclidine Scrn NEGATIVE Ur Amphetamines Screen NEGATIVE U Methamphetamin-MDMA NEGATIVE U Benzodiazepines Scrn NEGATIVE Urine Cocaine Screen NEGATIVE U Cannabinoids Screen NEGATIVE Ur Drug Screen Comment Ethyl Alcohol Acetone Level 10/16/18 10/16/18 10/17/18 18:22 22:10 00:09 WBC RBC Hgb Hct MCV MCH MCHC RDW RDW Differential Plt Count MPV Immature Gran % (Auto) Neut % (Auto) Lymph % (Auto) [place] % (Auto) Eos % (Auto) Baso % (Auto) Absolute Neuts (auto) Absolute Lymphs (auto) Total Counted Specimen Type ART ART Sample Site L Radial L Radial pH 7.48 H 7.44 Bicarbonate Actual 24.8 26.1 H POC Total CO2 26 27 Base Excess 1 2 O2 Saturation 98 97 ABG pCO2 33.2 L 38.3 ABG pO2 93 86 Romeo Test POS POS O2 Delivery Device Room Air Room Air Blood Gas Notified Whom ED RN Blood Gas Notified Time 181 10 Sodium Potassium Chloride Carbon Dioxide Anion Gap BUN Creatinine Estim Creat Clear Calc Est GFR (MDRD) Af Amer Est GFR (MDRD) Non-Af BUN/Creatinine Ratio Glucose Lactic Acid 2.3 H Calcium Ammonia Troponin I Urine Color Urine Clarity Urine pH Ur Specific [place] Urine Protein Urine Glucose (UA) Urine Ketones Urine Occult Blood Urine Nitrite Urine Bilirubin Urine Urobilinogen Ur Leukocyte Esterase Urine RBC Urine WBC Ur Squamous Epith Cells Urine Bacteria Urine Mucus Salicylates Urine Opiates Screen Urine Methadone Screen Acetaminophen Ur Barbiturates Screen Ur Phencyclidine Scrn Ur Amphetamines Screen U Methamphetamin-MDMA U Benzodiazepines Scrn Urine Cocaine Screen U Cannabinoids Screen Ur Drug Screen Comment Ethyl Alcohol Acetone Level POC Glucose 10/17/18 10/17/18 10/17/18 06:09 04:28 01:51 POC Glucose 95 97 83 10/16/18 10/16/18 10/16/18 23:48 20:53 18:08 POC Glucose 100 116 H 181 H Clinical Impression(s) from Imaging Studies Brain CT 10/16/18 17:34 IMPRESSION: 1. No acute findings. 2. Right ethmoid polyp or retention cyst. Electronically Signed: Samira Warner MD at 18:36 EST Tel , Service support , Chest X-Ray 10/16/18 18:00 IMPRESSION: No acute process. Electronically Signed: Samira Warner MD at 19:05 EST Tel , Service support , Assessment/Plan RECOMMENDATIONS: 1. Obtain morning labs to guide dialysis 2. Dialysis as soon as possible 3. As needed control of blood pressure to keep systolic less than 160 4. Attempt to obtain more information from family later today IMPRESSIONS: 1. Acute metabolic encephalopathy Unclear etiology at this time. Patient may have an element of PRES given elevated blood pressures. Patient's uremia is not very significant at this time. Ammonia is within normal limits. Will obtain hemodialysis and reevaluate. Patient is currently protecting her airway and 2 separate ABG show adequate oxygenation and ventilation. 2. Hypertensive urgency secondary to probable missed hemodialysis Patient does have a history of fluid responsive hypertensive urgency. Will give as needed medications as necessary to keep systolic less than 160, but anticipate hemodialysis will correct underlying issues. 3. Diabetes mellitus type 2 Patient's blood sugars are slightly elevated at this time. We will continue to monitor. No signs or symptoms of DKA. 4. End-stage renal disease with history of noncompliance Patient was significant elevation of creatinine on presentation. Patient does have a history of missing hemodialysis treatments for various reasons. Nephrology has been consulted. Await hemodialysis this morning. 5. History of noncompliance/lupus/Sjogren's syndrome/cervical spondylitis/chronic immunosuppression/secondary pulmonary hypertension Complicates care, management, recovery and prognosis. Patient does have poor venous access at this time. Patient may require port placement for venous access given current situation. Patient does have a history of previous fistula placement. Code Visit Inpatient E&M: 96012 Init Hosp L3
[2018-10-17 06:51] LABS: Absolute Lymphocyte Count 2.03 X10^3/ul (0.83-4.51); Absolute Neutrophil Count 6.5 X10^3/uL (2.0-7.7); Basophil# 0.02 X10^3/uL; Basophil% 0.2 % (0-1); Eosinophil# 0.15 X10^3/uL; Eosinophils% 1.6 % (0-5); Hematocrit 33.4 % (37-47); Hemoglobin 10.6 g/dl (12.0-15.0); Lymphocyte # 2.03 X10^3/ul (4.0); Lymphocyte % 21.1 % (19-41); Mean Corp Hgb Conc 31.7 g/gl (32-36); Mean Corpuscular Hgb 31.6 pg (27.0-32.0); Mean Corpuscular Volume 99.7 fL (81-99); Mean Platelet Vol. 9.7 fl (6.2-12.0); Monocyte% 9.4 % (0-10); Neutrophil # 6.45 X10^3/uL (2.7-7.7); Neutrophil % 67.2 % (47-70); Platelet Count 182 K/mm3 (150-450); RBC Distribution Width CV 16.7 % (11.6-14.6); RBC Distribution Width SD 52.4 fl (35.1-43.9); Red Blood Count 3.35 M/mm3 (4.2-5.4); White Blood Count 9.6 K/mm3 (4.4-11.0)
[2018-10-17 06:52] LABS: POSITIVE COUNT NO; POSITIVE DIFFERENTIAL NO; POSITIVE MORPHOLOGY NO
[2018-10-17 07:12] LABS: Anion Gap 12 (5-15); BUN 55 mg/dL (7-18); BUN/Creat Ratio 6.5 RATIO (10-20); Calcium,Total 9.4 mg/dL (8.5-10.1); Chloride 107 mmol/L (98-107); Creatinine, Serum 8.48 mg/dL (0.55-1.02); EST Glomerular Filtration Rate 5 mL/min (>60); Est Glom Filt Rate - Afr Amer 7 mL/min (>60); Estimated Creatinine Clearance 7.16 ml/min; Glucose 89 mg/dL (74-106); Potassium 5.8 mmol/L (3.5-5.1); Sodium Level 144 mmol/L (136-145)
--- NOTE | 2018-10-17 10:12 | PCM.PN.HOSP ---
Patient Problems: Active and Suspected Problems (Last Reviewed 08/14/18 @ 10:39 by Cesar Sheth MD) Hyperkalemia (Acute) Encephalopathy acute (Acute) Subjective: Still confused, unable to provide any history or answer any questions. Vitals/I&O's: Vital Signs Temp Pulse Resp BP Pulse Ox 36.7 C 102 H 10 L 163/107 H 99 10/17/18 09:00 10/17/18 09:00 10/17/18 09:00 10/17/18 09:00 10/17/18 09:02 Oxygen Flow Rate (L/min) 2 Oxygen Delivery Method Room Air Weight: 71 kg Body Mass Index (BMI) 26.6 Finger Stick Blood Glucose 181 Intake and Output for Last 24 Hours 10/15/18 10/16/18 10/17/18 23:59 23:59 23:59 Intake Total 15 / 15 Output Total 700 / 700 Balance -685 / -685 General: Confused HEENT: Atraumatic, Normocephalic Oral: Moist Mucosa, No Gingival or Mucosal Lesions/ Ulcerations Neck: No Nodes, Thyroid Normal Size and Texture Lungs: Clear to auscultation, Normal air movement, No rhonchi, No wheeze Cardiovascular: Regular rate, Regular Rhythm, Normal S1, Normal S2, No murmurs Abdomen: Bowel Sounds Present, Soft, Non Tender, Non-Distended, No Hepato-splenomegaly Extremities: No Calf Tenderness Skin: No rashes, No breakdown, - - right dialysis catheter in right upper chest w/o erythema, discharge. Musculoskeletal: No Tenderness to Palpation of Joints or Extremities, No Muscle Wasting Microbiology Past 72 Hours 10/16/18 17:50 Mucosa - Nose Influenza Types A,B Direct FA (TIMMY) - Final Laboratory Results 10/16/18 17:45: WBC 8.9, RBC 3.27 L, Hgb 10.2 L, Hct 33.1 L, MCV 101.2 H, MCH 31.2, MCHC 30.8 L, RDW 16.9 H, RDW Differential 57.2 H, Plt Count 178, MPV 9.3, Immature Gran % (Auto) 0.500, Neut % (Auto) 79.9 H, Lymph % (Auto) 11.4 L, [place] % (Auto) 6.5, Eos % (Auto) 1.6, Baso % (Auto) 0.1, Absolute Neuts (auto) 7.1, Absolute Lymphs (auto) 1.01, Total Counted Not Reportable 10/16/18 17:45: Sodium 140, Potassium 5.2 H, Chloride 104, Carbon Dioxide 28.0, Anion Gap 8, BUN 46 H, Creatinine 7.62 H*, Estim Creat Clear Calc 7.97, Est GFR (MDRD) Af Amer 7 L, Est GFR (MDRD) Non-Af 6 L, BUN/Creatinine Ratio 6.0 L, Glucose 199 H, Calcium 9.4, Troponin I 0.045 10/16/18 17:45: Ethyl Alcohol < 3.0 10/16/18 17:45: Lactic Acid 2.3 H 10/16/18 17:45: Acetone Level NEGATIVE 10/16/18 17:45: Ammonia 27.0 10/16/18 17:45: Salicylates < 1.7 L, Acetaminophen < 2.0 L 10/16/18 18:08: POC Glucose 181 H 10/16/18 18:20: Urine Color Yellow, Urine Clarity Clear, Urine pH 8.0, Ur Specific [place] 1.010, Urine Protein 100 H, Urine Glucose (UA) 100 H, Urine Ketones Negative, Urine Occult Blood 25 H, Urine Nitrite Negative, Urine Bilirubin Negative, Urine Urobilinogen Normal, Ur Leukocyte Esterase Negative, Urine RBC 0 SEEN, Urine WBC 0 SEEN, Ur Squamous Epith Cells 0 SEEN, Urine Bacteria RARE, Urine Mucus 0 SEEN 10/16/18 18:20: Urine Opiates Screen NEGATIVE, Urine Methadone Screen NEGATIVE, Ur Barbiturates Screen NEGATIVE, Ur Phencyclidine Scrn NEGATIVE, Ur Amphetamines Screen NEGATIVE, U Methamphetamin-MDMA NEGATIVE, U Benzodiazepines Scrn NEGATIVE, Urine Cocaine Screen NEGATIVE, U Cannabinoids Screen NEGATIVE, Ur Drug Screen Comment 10/16/18 18:22: Specimen Type ART, Sample Site L Radial, pH 7.48 H, Bicarbonate Actual 24.8, POC Total CO2 26, Base Excess 1, O2 Saturation 98, ABG pCO2 33.2 L, ABG pO2 93, Romeo Test POS, O2 Delivery Device Room Air, Blood Gas Notified Whom ED , Blood Gas Notified Time 1810 10/16/18 20:53: POC Glucose 116 H 10/16/18 22:10: Lactic Acid 2.3 H 10/16/18 23:48: POC Glucose 100 10/17/18 00:09: Specimen Type ART, Sample Site L Radial, pH 7.44, Bicarbonate Actual 26.1 H, POC Total CO2 27, Base Excess 2, O2 Saturation 97, ABG pCO2 38.3, ABG pO2 86, Romeo Test POS, O2 Delivery Device Room Air, Blood Gas Notified Whom RN, Blood Gas Notified Time 10 10/17/18 01:51: POC Glucose 83 10/17/18 04:28: POC Glucose 97 10/17/18 06:09: POC Glucose 95 10/17/18 06:40: WBC 9.6, RBC 3.35 L, Hgb 10.6 L, Hct 33.4 L, MCV 99.7 H, MCH 31.6, MCHC 31.7 L, RDW 16.7 H, RDW Differential 52.4 H, Plt Count 182, MPV 9.7, Immature Gran % (Auto) 0.500, Neut % (Auto) 67.2, Lymph % (Auto) 21.1, [place] % (Auto) 9.4, Eos % (Auto) 1.6, Baso % (Auto) 0.2, Absolute Neuts (auto) 6.5, Absolute Lymphs (auto) 2.03, Total Counted Not Reportable 10/17/18 06:40: Sodium 144, Potassium 5.8 H, Chloride 107, Carbon Dioxide 25.0, Anion Gap 12, BUN 55 H, Creatinine 8.48 H*, Estim Creat Clear Calc 7.16, Est GFR (MDRD) Af Amer 7 L, Est GFR (MDRD) Non-Af 5 L, BUN/Creatinine Ratio 6.5 L, Glucose 89, Calcium 9.4 Current Medications Acetaminophen (Tylenol) 500 mg PO Q6H PRN PRN PRN Reason: PAIN Atorvastatin Calcium (Lipitor) 20 mg PO QHS [facility] Last Admin: 10/16/18 22:38 Dose: Not Given Calcitriol (Rocaltrol) 0.5 mcg PO DAILY [facility] Duloxetine HCl (Cymbalta) 120 mg PO DAILY [facility] Famotidine (Pepcid) 10 mg PO DAILY [facility] Fluticasone Propionate (Flonase Nasal [place]) 2 spray NASAL BID [facility] Last Admin: 10/16/18 22:32 Dose: 2 spray Heparin Sodium (Porcine) (Heparin Na) 5,000 unit SC Q8 [facility] Last Admin: 10/17/18 05:31 Dose: 5,000 unit Heparin Sodium (Porcine) () 2,500 units IV UD PRN PRN Reason: HEPARIN FLUSH Hydralazine HCl (Apresoline Iv) 10 mg IV Q4H PRN PRN PRN Reason: BLOOD PRESSURE ELEVATION Last Admin: 10/17/18 03:18 Dose: 10 mg Hydroxychloroquine [facility] ([facility]) [facility] Sodium Chloride () 250 mls @ 15 mls/hr IV .[id number] PRN PRN Reason: SALINE FLUSH Lidocaine/Prilocaine (Emla Cream W/Tegaderm) 5 gm TOPICAL MoWeFr [facility] Loperamide HCl (Imodium) 4 mg PO BID PRN PRN PRN Reason: DIAHREA Lorazepam (Ativan) 1 mg PO BID PRN PRN PRN Reason: ANXIETY Magnesium Hydroxide (Milk Of Magnesia) 30 ml PO DAILY PRN PRN PRN Reason: Constipation Metoprolol Tartrate (Lopressor (Beta Cirilo)) 25 mg PO BID [facility] Last Admin: 10/17/18 09:42 Dose: Not Given Montelukast Sodium (Singulair) 10 mg PO DAILY [facility] Multivit/Ca Carb/B Cmplx/FA/Prenat (Nephrocaps, Renaphro) [facility] Ondansetron HCl (Zofran Odt) 4 mg PO Q8H PRN PRN PRN Reason: NAUSEA/VOMITING Prednisone () [facility] Pregabalin (Lyrica) 75 mg PO BID [facility] Last Admin: 10/16/18 22:39 Dose: Not Given Sevelamer Carbonate (Renvela) 1,600 mg PO TIDCM [facility] Last Admin: 10/17/18 09:42 Dose: Not Given Sodium Chloride () 5 - 15 ml IV UD PRN PRN Reason: SALINE FLUSH Sodium Chloride () 10 ml IV UD PRN PRN Reason: Dialysis Catheter Flush Medical Necessity - Tobacco Use Smoking Status: Never smoker Assessment/Plan All Active Problems (Last Reviewed 08/14/18 @ 10:39 by Cesar Sheth MD) Hyperkalemia (Acute) Extremity edema (Acute) Encephalopathy acute (Acute) 1. acute metabolic encephalopathy ongoing may be due to uremia v hypertensive encephalopathy v. other UDS negative (does not check for synthetics, however) reportedly complaint with HD this week to have HD today 2. Hyperkalemia to have HD today monitor on telemetry follow up K 3. Hypertensive urgency. unclear if contributed to encephalopathy on PRN hydralazine will need treatment for hypertension once she is alert. no ACEi given angioedema consider CCB (amlodipine) 4. DVT proph: SQ heparin. Code Visit Inpatient E&M: 01631 Subs Hosp L2
--- NOTE | 2018-10-17 10:23 | PN_ITS ---
Patient Problems: Active and Suspected Problems (Last Reviewed 08/14/18 @ 10:39 by Cesar Sheth MD) Hyperkalemia (Acute) Encephalopathy acute (Acute) Subjective: Still confused, unable to provide any history or answer any questions. Vitals/I&O's: Vital Signs Temp Pulse Resp BP Pulse Ox 36.7 C 102 H 10 L 163/107 H 99 10/17/18 09:00 10/17/18 09:00 10/17/18 09:00 10/17/18 09:00 10/17/18 09:02 Oxygen Flow Rate (L/min) 2 Oxygen Delivery Method Room Air Weight: 71 kg Body Mass Index (BMI) 26.6 Finger Stick Blood Glucose 181 Intake and Output for Last 24 Hours 10/15/18 10/16/18 10/17/18 23:59 23:59 23:59 Intake Total 15 / 15 Output Total 700 / 700 Balance -685 / -685 General: Confused HEENT: Atraumatic, Normocephalic Oral: Moist Mucosa, No Gingival or Mucosal Lesions/ Ulcerations Neck: No Nodes, Thyroid Normal Size and Texture Lungs: Clear to auscultation, Normal air movement, No rhonchi, No wheeze Cardiovascular: Regular rate, Regular Rhythm, Normal S1, Normal S2, No murmurs Abdomen: Bowel Sounds Present, Soft, Non Tender, Non-Distended, No Hepato- splenomegaly Extremities: No Calf Tenderness Skin: No rashes, No breakdown, - - right dialysis catheter in right upper chest w/o erythema, discharge. Musculoskeletal: No Tenderness to Palpation of Joints or Extremities, No Muscle Wasting Microbiology Past 72 Hours 10/16/18 17:50 Mucosa - Nose Influenza Types A,B Direct FA (TIMMY) - Final Laboratory Results 10/16/18 17:45: WBC 8.9, RBC 3.27 L, Hgb 10.2 L, Hct 33.1 L, MCV 101.2 H, MCH 31.2, MCHC 30.8 L, RDW 16.9 H, RDW Differential 57.2 H, Plt Count 178, MPV 9.3, Immature Gran % (Auto) 0.500, Neut % (Auto) 79.9 H, Lymph % (Auto) 11.4 L, [place] % (Auto) 6.5, Eos % (Auto) 1.6, Baso % (Auto) 0.1, Absolute Neuts (auto) 7.1, Absolute Lymphs (auto) 1.01, Total Counted Not Reportable 10/16/18 17:45: Sodium 140, Potassium 5.2 H, Chloride 104, Carbon Dioxide 28.0, Anion Gap 8, BUN 46 H, Creatinine 7.62 H*, Estim Creat Clear Calc 7.97, Est GFR (MDRD) Af Amer 7 L, Est GFR (MDRD) Non-Af 6 L, BUN/Creatinine Ratio 6.0 L, Glucose 199 H, Calcium 9.4, Troponin I 0.045 10/16/18 17:45: Ethyl Alcohol < 3.0 10/16/18 17:45: Lactic Acid 2.3 H 10/16/18 17:45: Acetone Level NEGATIVE 10/16/18 17:45: Ammonia 27.0 10/16/18 17:45: Salicylates < 1.7 L, Acetaminophen < 2.0 L 10/16/18 18:08: POC Glucose 181 H 10/16/18 18:20: Urine Color Yellow, Urine Clarity Clear, Urine pH 8.0, Ur Specific [place] 1.010, Urine Protein 100 H, Urine Glucose (UA) 100 H, Urine Ketones Negative, Urine Occult Blood 25 H, Urine Nitrite Negative, Urine Bilirubin Negative, Urine Urobilinogen Normal, Ur Leukocyte Esterase Negative, Urine RBC 0 SEEN, Urine WBC 0 SEEN, Ur Squamous Epith Cells 0 SEEN, Urine Bacteria RARE, Urine Mucus 0 SEEN 10/16/18 18:20: Urine Opiates Screen NEGATIVE, Urine Methadone Screen NEGATIVE, Ur Barbiturates Screen NEGATIVE, Ur Phencyclidine Scrn NEGATIVE, Ur Amphetamines Screen NEGATIVE, U Methamphetamin-MDMA NEGATIVE, U Benzodiazepines Scrn NEGATIVE, Urine Cocaine Screen NEGATIVE, U Cannabinoids Screen NEGATIVE, Ur Drug Screen Comment 10/16/18 18:22: Specimen Type ART, Sample Site L Radial, pH 7.48 H, Bicarbonate Actual 24.8, POC Total CO2 26, Base Excess 1, O2 Saturation 98, ABG pCO2 33.2 L, ABG pO2 93, Romeo Test POS, O2 Delivery Device Room Air, Blood Gas Notified Whom ED , Blood Gas Notified Time 1810 10/16/18 20:53: POC Glucose 116 H 10/16/18 22:10: Lactic Acid 2.3 H 10/16/18 23:48: POC Glucose 100 10/17/18 00:09: Specimen Type ART, Sample Site L Radial, pH 7.44, Bicarbonate Actual 26.1 H, POC Total CO2 27, Base Excess 2, O2 Saturation 97, ABG pCO2 38.3, ABG pO2 86, Romeo Test POS, O2 Delivery Device Room Air, Blood Gas Notified Whom RN, Blood Gas Notified Time 10 10/17/18 01:51: POC Glucose 83 10/17/18 04:28: POC Glucose 97 10/17/18 06:09: POC Glucose 95 10/17/18 06:40: WBC 9.6, RBC 3.35 L, Hgb 10.6 L, Hct 33.4 L, MCV 99.7 H, MCH 31.6, MCHC 31.7 L, RDW 16.7 H, RDW Differential 52.4 H, Plt Count 182, MPV 9.7, Immature Gran % (Auto) 0.500, Neut % (Auto) 67.2, Lymph % (Auto) 21.1, [place] % (Auto) 9.4, Eos % (Auto) 1.6, Baso % (Auto) 0.2, Absolute Neuts (auto) 6.5, Absolute Lymphs (auto) 2.03, Total Counted Not Reportable 10/17/18 06:40: Sodium 144, Potassium 5.8 H, Chloride 107, Carbon Dioxide 25.0, Anion Gap 12, BUN 55 H, Creatinine 8.48 H*, Estim Creat Clear Calc 7.16, Est GFR (MDRD) Af Amer 7 L, Est GFR (MDRD) Non-Af 5 L, BUN/Creatinine Ratio 6.5 L, Glucose 89, Calcium 9.4 Current Medications Acetaminophen (Tylenol) 500 mg PO Q6H PRN PRN PRN Reason: PAIN Atorvastatin Calcium (Lipitor) 20 mg PO QHS [facility] Last Admin: 10/16/18 22:38 Dose: Not Given Calcitriol (Rocaltrol) 0.5 mcg PO DAILY [facility] Duloxetine HCl (Cymbalta) 120 mg PO DAILY [facility] Famotidine (Pepcid) 10 mg PO DAILY [facility] Fluticasone Propionate (Flonase Nasal [place]) 2 spray NASAL BID [facility] Last Admin: 10/16/18 22:32 Dose: 2 spray Heparin Sodium (Porcine) (Heparin Na) 5,000 unit SC Q8 [facility] Last Admin: 10/17/18 05:31 Dose: 5,000 unit Heparin Sodium (Porcine) () 2,500 units IV UD PRN PRN Reason: HEPARIN FLUSH Hydralazine HCl (Apresoline Iv) 10 mg IV Q4H PRN PRN PRN Reason: BLOOD PRESSURE ELEVATION Last Admin: 10/17/18 03:18 Dose: 10 mg Hydroxychloroquine [facility] Sodium Chloride () 250 mls @ 15 mls/hr IV .[id number] PRN PRN Reason: SALINE FLUSH Lidocaine/Prilocaine (Emla Cream W/Tegaderm) 5 gm TOPICAL MoWeFr [facility] Loperamide HCl (Imodium) 4 mg PO BID PRN PRN PRN Reason: DIAHREA Lorazepam (Ativan) 1 mg PO BID PRN PRN PRN Reason: ANXIETY Magnesium Hydroxide (Milk Of Magnesia) 30 ml PO DAILY PRN PRN PRN Reason: Constipation Metoprolol Tartrate (Lopressor (Beta Cirilo)) 25 mg PO BID [facility] Last Admin: 10/17/18 09:42 Dose: Not Given Montelukast Sodium (Singulair) 10 mg PO DAILY [facility] Multivit/Ca Carb/B Cmplx/FA/Prenat (Nephrocaps, Renaphro) [facility] Ondansetron HCl (Zofran Odt) 4 mg PO Q8H PRN PRN PRN Reason: NAUSEA/VOMITING Prednisone () [facility] Pregabalin (Lyrica) 75 mg PO BID [facility] Last Admin: 10/16/18 22:39 Dose: Not Given Sevelamer Carbonate (Renvela) 1,600 mg PO TIDCM [facility] Last Admin: 10/17/18 09:42 Dose: Not Given Sodium Chloride () 5 - 15 ml IV UD PRN PRN Reason: SALINE FLUSH Sodium Chloride () 10 ml IV UD PRN PRN Reason: Dialysis Catheter Flush Medical Necessity - Tobacco Use Smoking Status: Never smoker Assessment/Plan All Active Problems (Last Reviewed 08/14/18 @ 10:39 by Cesar Sheth MD) Hyperkalemia (Acute) Extremity edema (Acute) Encephalopathy acute (Acute) 1. acute metabolic encephalopathy ongoing may be due to uremia v hypertensive encephalopathy v. other UDS negative (does not check for synthetics, however) reportedly complaint with HD this week to have HD today 2. Hyperkalemia to have HD today monitor on telemetry follow up K 3. Hypertensive urgency. unclear if contributed to encephalopathy on PRN hydralazine will need treatment for hypertension once she is alert. no ACEi given angioedema consider CCB (amlodipine) 4. DVT proph: SQ heparin. Code Visit Inpatient E&M: 65856 Subs Hosp L2
[2018-10-17 10:36] LABS: Bedside Glucose 102 mg/dL (70-110)
--- NOTE | 2018-10-17 11:15 | PCM.CONS.R ---
Consultation - Renal 10/17/18 PCP/ Referring MD: Requesting physician: Dr Finch Primary care physician: Mitchell Bowen MD Reason for Consultation:: ESRD dialysis mgmt - History of Present Illness History of Present Illness: The patient is a 48 year old F with an extensive PMH was admitted via the ED for altered mental status. She has been hospitalized multiple times for similar event with hypoglycemia, hypertensive urgency. She is awake but not able to answer questions but is able to follow commands with hand solar energy system installer. She is seen on dialysis this morning. BP dropped in the 100's with HR in 110's. Her last dialysis was Wednesday. Spoke with ER physician and hospitalist last night. Her cpeptide and pro insulin has been mildly elevated during prior admission for persistent hypoglycemia. CT abdomen unremarkable, atrophy of pancreas. She was referred to medical corps officer as output but has not been evaluated yet for possible insulinoma. CT head no acute findings. - Allergies Allergies: Allergies LONG Inhibitors Allergy (Verified 10/16/18 17:14) Angioedema adhesive Allergy (Verified 10/16/18 17:14) Rash diphenhydramine [From Benadryl] Allergy (Verified 10/16/18 17:14) Unknown lisinopril Allergy (Verified 10/16/18 17:14) Angioedema Sulfa (Sulfonamide Antibiotics) Allergy (Verified 10/16/18 17:14) Rash sulfamethoxazole [From Bactrim] Allergy (Verified 10/16/18 17:14) Rash trimethoprim [From Bactrim] Allergy (Verified 10/16/18 17:14) Rash Angioderm Adverse Reaction (Unknown, Uncoded 10/16/18 17:14) Unknown - Current Medications Current Medications: Current Medications Acetaminophen (Tylenol) 500 mg PO Q6H PRN PRN PRN Reason: PAIN Atorvastatin Calcium (Lipitor) 20 mg PO QHS [facility] Last Admin: 10/16/18 22:38 Dose: Not Given Calcitriol (Rocaltrol) 0.5 mcg PO DAILY [facility] Duloxetine HCl (Cymbalta) 120 mg PO DAILY [facility] Famotidine (Pepcid) 10 mg PO DAILY [facility] Fluticasone Propionate (Flonase Nasal [place]) 2 spray NASAL BID [facility] Last Admin: 10/16/18 22:32 Dose: 2 spray Heparin Sodium (Porcine) (Heparin Na) 5,000 unit SC Q8 [facility] Last Admin: 10/17/18 05:31 Dose: 5,000 unit Heparin Sodium (Porcine) () 2,500 units IV UD PRN PRN Reason: HEPARIN FLUSH Hydralazine HCl (Apresoline Iv) 10 mg IV Q4H PRN PRN PRN Reason: BLOOD PRESSURE ELEVATION Last Admin: 10/17/18 03:18 Dose: 10 mg Hydroxychloroquine Sulfate (Plaquenil) 200 mg PO BIDCM [facility] Last Admin: 10/17/18 10:13 Dose: Not Given Sodium Chloride () 250 mls @ 15 mls/hr IV .[id number] PRN PRN Reason: SALINE FLUSH Lidocaine/Prilocaine (Emla Cream W/Tegaderm) 5 gm TOPICAL MoWeFr [facility] Loperamide HCl (Imodium) 4 mg PO BID PRN PRN PRN Reason: DIAHREA Lorazepam (Ativan) 1 mg PO BID PRN PRN PRN Reason: ANXIETY Magnesium Hydroxide (Milk Of Magnesia) 30 ml PO DAILY PRN PRN PRN Reason: Constipation Metoprolol Tartrate (Lopressor (Beta Cirilo)) 25 mg PO BID [facility] Last Admin: 10/17/18 09:42 Dose: Not Given Montelukast Sodium (Singulair) 10 mg PO DAILY [facility] Multivit/Ca Carb/B Cmplx/FA/Prenat (Nephrocaps, Renaphro) [address] [place] Ondansetron HCl (Zofran Odt) 4 mg PO Q8H PRN PRN PRN Reason: NAUSEA/VOMITING Prednisone () [address] [place] Pregabalin (Lyrica) 75 mg PO BID [facility] Last Admin: 10/16/18 22:39 Dose: Not Given Sevelamer Carbonate (Renvela) 1,600 mg PO TIDCM [facility] Last Admin: 10/17/18 09:42 Dose: Not Given Sodium Chloride () 5 - 15 ml IV UD PRN PRN Reason: SALINE FLUSH Sodium Chloride () 10 ml IV UD PRN PRN Reason: Dialysis Catheter Flush - Past Medical History Past Medical History (Chronic Problems): Chronic Problems (Last Reviewed 08/14/18 @ 10:39 by Cesar Sheth MD) Nonrheumatic mitral (valve) insufficiency (Chronic) Secondary pulmonary arterial hypertension (Chronic) Non-rheumatic tricuspid valve insufficiency (Chronic) End stage renal disease (Chronic) Chronic anemia (Chronic) Hypertension (Chronic) Narcolepsy (Chronic) Lupus nephritis (Chronic) Status post kidney and liver biopsy (fatty liver) Degenerative disc disease, cervical (Chronic) Cervical spondylosis (Chronic) Diabetes mellitus, type II (Chronic) SLE (systemic lupus erythematosus) (Chronic) - Past Surgical History Surgical History: - - failed AVF left arm, AVF right arm - Social History Smoking Status: Never smoker - Family History Maternal Family History: Family History (Last Reviewed 08/12/18 @ 18:36 by Javi Sanchez DO) Mother Hypertension Kidney disease ALS (amyotrophic lateral sclerosis) Father Heart disease Hypertension Kidney disease Diabetes History Items: Diabetes, High Cholesterol, Heart Disease, Hypertension, Renal Disease, - Paternal Family History: Family History (Last Reviewed 08/12/18 @ 18:36 by Javi Sanchez DO) Mother Hypertension Kidney disease ALS (amyotrophic lateral sclerosis) Father Heart disease Hypertension Kidney disease Diabetes History Items: Diabetes, High Cholesterol, Heart Disease, Hypertension, Renal Disease Sibling Family History: Family History (Last Reviewed 08/12/18 @ 18:36 by Javi Sanchez DO) Mother Hypertension Kidney disease ALS (amyotrophic lateral sclerosis) Father Heart disease Hypertension Kidney disease Diabetes History Items: Diabetes Review of Systems Unable to obtain accurate/complete ROS d/t: confusion, nonverbal Patient Problems: Active and Suspected Problems (Last Reviewed 08/14/18 @ 10:39 by Cesar Sheth MD) Hyperkalemia (Acute) Encephalopathy acute (Acute) - Physical Exam General: Confused, Disoriented - to place and time and to me HEENT: PERRLA, EOMI Lungs: Clear to auscultation Cardiovascular: Tachycardic Abdomen: Bowel Sounds Present, Soft, Non Tender, Non-Distended Extremities: No edema, - - BLE edema, AVF rt arm with weak thrill and faint bruit Musculoskeletal: No Muscle Wasting Neurological: - - not answering questions, firm hand solar energy system installer bilat Psych/Mental Status: Flat Affect Vital Signs Temp Pulse Resp BP Pulse Ox 98.1 F 116 H 10 L 122/88 H 100 10/17/18 09:00 10/17/18 10:30 10/17/18 10:00 10/17/18 10:30 10/17/18 10:00 Oxygen Flow Rate (L/min) 2 Oxygen Delivery Method Room Air Weight: 71 kg Body Mass Index (BMI) 26.6 Finger Stick Blood Glucose 181 Intake and Output for Last 24 Hours 10/15/18 10/16/18 10/17/18 23:59 23:59 23:59 Intake Total 15 / 15 Output Total 700 / 700 Balance -685 / -685 Microbiology Past 72 Hours 10/16/18 17:50 Influenza Types A,B Direct FA (TIMMY) - Final Mucosa - Nose Laboratory Tests Past 24 Hrs 10/16/18 10/16/18 10/16/18 17:45 17:45 17:45 WBC 8.9 RBC 3.27 L Hgb 10.2 L Hct 33.1 L MCV 101.2 H MCH 31.2 MCHC 30.8 L RDW 16.9 H RDW Differential 57.2 H Plt Count 178 MPV 9.3 Immature Gran % (Auto) 0.500 Neut % (Auto) 79.9 H Lymph % (Auto) 11.4 L [place] % (Auto) 6.5 Eos % (Auto) 1.6 Baso % (Auto) 0.1 Absolute Neuts (auto) 7.1 Absolute Lymphs (auto) 1.01 Total Counted Not Reportable Specimen Type Sample Site pH Bicarbonate Actual POC Total CO2 Base Excess O2 Saturation ABG pCO2 ABG pO2 Romeo Test O2 Delivery Device Blood Gas Notified Whom Blood Gas Notified Time Sodium 140 Potassium 5.2 H Chloride 104 Carbon Dioxide 28.0 Anion Gap 8 BUN 46 H Creatinine 7.62 H* Estim Creat Clear Calc 7.97 Est GFR (MDRD) Af Amer 7 L Est GFR (MDRD) Non-Af 6 L BUN/Creatinine Ratio 6.0 L Glucose 199 H Lactic Acid Calcium 9.4 Ammonia Troponin I 0.045 Urine Color Urine Clarity Urine pH Ur Specific [place] Urine Protein Urine Glucose (UA) Urine Ketones Urine Occult Blood Urine Nitrite Urine Bilirubin Urine Urobilinogen Ur Leukocyte Esterase Urine RBC Urine WBC Ur Squamous Epith Cells Urine Bacteria Urine Mucus Salicylates Urine Opiates Screen Urine Methadone Screen Acetaminophen Ur Barbiturates Screen Ur Phencyclidine Scrn Ur Amphetamines Screen U Methamphetamin-MDMA U Benzodiazepines Scrn Urine Cocaine Screen U Cannabinoids Screen Ur Drug Screen Comment Ethyl Alcohol < 3.0 Acetone Level 10/16/18 10/16/18 10/16/18 17:45 17:45 17:45 WBC RBC Hgb Hct MCV MCH MCHC RDW RDW Differential Plt Count MPV Immature Gran % (Auto) Neut % (Auto) Lymph % (Auto) Z[place] % (Auto) Eos % (Auto) Baso % (Auto) Absolute Neuts (auto) Absolute Lymphs (auto) Total Counted Specimen Type Sample Site pH Bicarbonate Actual POC Total CO2 Base Excess O2 Saturation ABG pCO2 ABG pO2 Romeo Test O2 Delivery Device Blood Gas Notified Whom Blood Gas Notified Time Sodium Potassium Chloride Carbon Dioxide Anion Gap BUN Creatinine Estim Creat Clear Calc Est GFR (MDRD) Af Amer Est GFR (MDRD) Non-Af BUN/Creatinine Ratio Glucose Lactic Acid 2.3 H Calcium Ammonia 27.0 Troponin I Urine Color Urine Clarity Urine pH Ur Specific [place] Urine Protein Urine Glucose (UA) Urine Ketones Urine Occult Blood Urine Nitrite Urine Bilirubin Urine Urobilinogen Ur Leukocyte Esterase Urine RBC Urine WBC Ur Squamous Epith Cells Urine Bacteria Urine Mucus Salicylates Urine Opiates Screen Urine Methadone Screen Acetaminophen Ur Barbiturates Screen Ur Phencyclidine Scrn Ur Amphetamines Screen U Methamphetamin-MDMA U Benzodiazepines Scrn Urine Cocaine Screen U Cannabinoids Screen Ur Drug Screen Comment Ethyl Alcohol Acetone Level NEGATIVE 10/16/18 10/16/18 10/16/18 17:45 18:20 18:20 WBC RBC Hgb Hct MCV MCH MCHC RDW RDW Differential Plt Count MPV Immature Gran % (Auto) Neut % (Auto) Lymph % (Auto) Z[place] % (Auto) Eos % (Auto) Baso % (Auto) Absolute Neuts (auto) Absolute Lymphs (auto) Total Counted Specimen Type Sample Site pH Bicarbonate Actual POC Total CO2 Base Excess O2 Saturation ABG pCO2 ABG pO2 Romeo Test O2 Delivery Device Blood Gas Notified Whom Blood Gas Notified Time Sodium Potassium Chloride Carbon Dioxide Anion Gap BUN Creatinine Estim Creat Clear Calc Est GFR (MDRD) Af Amer Est GFR (MDRD) Non-Af BUN/Creatinine Ratio Glucose Lactic Acid Calcium Ammonia Troponin I Urine Color Yellow Urine Clarity Clear Urine pH 8.0 Ur Specific [place] 1.010 Urine Protein 100 H Urine Glucose (UA) 100 H Urine Ketones Negative Urine Occult Blood 25 H Urine Nitrite Negative Urine Bilirubin Negative Urine Urobilinogen Normal Ur Leukocyte Esterase Negative Urine RBC 0 SEEN Urine WBC 0 SEEN Ur Squamous Epith Cells 0 SEEN Urine Bacteria RARE Urine Mucus 0 SEEN Salicylates < 1.7 L Urine Opiates Screen NEGATIVE Urine Methadone Screen NEGATIVE Acetaminophen < 2.0 L Ur Barbiturates Screen NEGATIVE Ur Phencyclidine Scrn NEGATIVE Ur Amphetamines Screen NEGATIVE U Methamphetamin-MDMA NEGATIVE U Benzodiazepines Scrn NEGATIVE Urine Cocaine Screen NEGATIVE U Cannabinoids Screen NEGATIVE Ur Drug Screen Comment Ethyl Alcohol Acetone Level 10/16/18 10/16/18 10/17/18 18:22 22:10 00:09 WBC RBC Hgb Hct MCV MCH MCHC RDW RDW Differential Plt Count MPV Immature Gran % (Auto) Neut % (Auto) Lymph % (Auto) [place] % (Auto) Eos % (Auto) Baso % (Auto) Absolute Neuts (auto) Absolute Lymphs (auto) Total Counted Specimen Type ART ART Sample Site L Radial L Radial pH 7.48 H 7.44 Bicarbonate Actual 24.8 26.1 H POC Total CO2 26 27 Base Excess 1 2 O2 Saturation 98 97 ABG pCO2 33.2 L 38.3 ABG pO2 93 86 Romeo Test POS POS O2 Delivery Device Room Air Room Air Blood Gas Notified Whom ED RN Blood Gas Notified Time 181 10 Sodium Potassium Chloride Carbon Dioxide Anion Gap BUN Creatinine Estim Creat Clear Calc Est GFR (MDRD) Af Amer Est GFR (MDRD) Non-Af BUN/Creatinine Ratio Glucose Lactic Acid 2.3 H Calcium Ammonia Troponin I Urine Color Urine Clarity Urine pH Ur Specific [place] Urine Protein Urine Glucose (UA) Urine Ketones Urine Occult Blood Urine Nitrite Urine Bilirubin Urine Urobilinogen Ur Leukocyte Esterase Urine RBC Urine WBC Ur Squamous Epith Cells Urine Bacteria Urine Mucus Salicylates Urine Opiates Screen Urine Methadone Screen Acetaminophen Ur Barbiturates Screen Ur Phencyclidine Scrn Ur Amphetamines Screen U Methamphetamin-MDMA U Benzodiazepines Scrn Urine Cocaine Screen U Cannabinoids Screen Ur Drug Screen Comment Ethyl Alcohol Acetone Level 10/17/18 10/17/18 06:40 06:40 WBC 9.6 RBC 3.35 L Hgb 10.6 L Hct 33.4 L MCV 99.7 H MCH 31.6 MCHC 31.7 L RDW 16.7 H RDW Differential 52.4 H Plt Count 182 MPV 9.7 Immature Gran % (Auto) 0.500 Neut % (Auto) 67.2 Lymph % (Auto) 21.1 Z[place] % (Auto) 9.4 Eos % (Auto) 1.6 Baso % (Auto) 0.2 Absolute Neuts (auto) 6.5 Absolute Lymphs (auto) 2.03 Total Counted Not Reportable Specimen Type Sample Site pH Bicarbonate Actual POC Total CO2 Base Excess O2 Saturation ABG pCO2 ABG pO2 Romeo Test O2 Delivery Device Blood Gas Notified Whom Blood Gas Notified Time Sodium 144 Potassium 5.8 H Chloride 107 Carbon Dioxide 25.0 Anion Gap 12 BUN 55 H Creatinine 8.48 H* Estim Creat Clear Calc 7.16 Est GFR (MDRD) Af Amer 7 L Est GFR (MDRD) Non-Af 5 L BUN/Creatinine Ratio 6.5 L Glucose 89 Lactic Acid Calcium 9.4 Ammonia Troponin I Urine Color Urine Clarity Urine pH Ur Specific [place] Urine Protein Urine Glucose (UA) Urine Ketones Urine Occult Blood Urine Nitrite Urine Bilirubin Urine Urobilinogen Ur Leukocyte Esterase Urine RBC Urine WBC Ur Squamous Epith Cells Urine Bacteria Urine Mucus Salicylates Urine Opiates Screen Urine Methadone Screen Acetaminophen Ur Barbiturates Screen Ur Phencyclidine Scrn Ur Amphetamines Screen U Methamphetamin-MDMA U Benzodiazepines Scrn Urine Cocaine Screen U Cannabinoids Screen Ur Drug Screen Comment Ethyl Alcohol Acetone Level POC Glucose 10/17/18 10/17/18 10/17/18 10:30 06:09 04:28 POC Glucose 102 95 97 10/17/18 10/16/18 10/16/18 01:51 23:48 20:53 POC Glucose 83 100 116 H 10/16/18 18:08 POC Glucose 181 H Clinical Impression(s) from Imaging Studies Brain CT 10/16/18 17:34 IMPRESSION: 1. No acute findings. 2. Right ethmoid polyp or retention cyst. Electronically Signed: Samira Warner MD at 18:36 EST Tel , Service support , Chest X-Ray 10/16/18 18:00 IMPRESSION: No acute process. Electronically Signed: Samira Warner MD at 19:05 EST Tel , Service support , Assessment/Plan All Active Problems (Last Reviewed 08/14/18 @ 10:39 by Cesar Sheth MD) Hyperkalemia (Acute) Extremity edema (Acute) Encephalopathy acute (Acute) 1. ESRD HD today and MWF. Seen on dialysis. Reduce fluid removal for hypotension, mild tachycardia. Last dialysis Wednesday as outpt. 2. Altered mental status, acute encephalopathy. CT head no acute findings. Tox screen negative 3. HTN elevated BP on admission, improved on dialysis 4. DM2 w/ hx hypoglycemia with elevated proinsulin and cpeptide. Referred to endocrine as outpt. 5. SLE 6. Anxiety disorder 7. Narcolepsy 8. Anemia hgb stable.
--- NOTE | 2018-10-17 11:19 | CON.PCM_ITS ---
Consultation - Renal 10/17/18 PCP/ Referring MD: Requesting physician: Dr Finch Primary care physician: Mitchell Bowen MD Reason for Consultation:: ESRD dialysis mgmt - History of Present Illness History of Present Illness: The patient is a 48 year old F with an extensive PMH was admitted via the ED for altered mental status. She has been hospitalized multiple times for similar event with hypoglycemia, hypertensive urgency. She is awake but not able to answer questions but is able to follow commands with hand vibrator equipment tester. She is seen on dialysis this morning. BP dropped in the 100's with HR in 110's. Her last d ialysis was Wednesday. Spoke with ER physician and hospitalist last night. Her cpeptide and pro insulin has been mildly elevated during prior admission for persistent hypoglycemia. CT abdomen unremarkable, atrophy of pancreas. She was referred to senior analytic consultant as output but has not been evaluated yet for possible insulinoma. CT head no acute findings. - Allergies Allergies: Allergies LONG Inhibitors Allergy (Verified 10/16/18 17:14) Angioedema adhesive Allergy (Verified 10/16/18 17:14) Rash diphenhydramine [From Benadryl] Allergy (Verified 10/16/18 17:14) Unknown lisinopril Allergy (Verified 10/16/18 17:14) Angioedema Sulfa (Sulfonamide Antibiotics) Allergy (Verified 10/16/18 17:14) Rash sulfamethoxazole [From Bactrim] Allergy (Verified 10/16/18 17:14) Rash trimethoprim [From Bactrim] Allergy (Verified 10/16/18 17:14) Rash Angioderm Adverse Reaction (Unknown, Uncoded 10/16/18 17:14) Unknown - Current Medications Current Medications: Current Medications Acetaminophen (Tylenol) 500 mg PO Q6H PRN PRN PRN Reason: PAIN Atorvastatin Calcium (Lipitor) 20 mg PO QHS [facility] Last Admin: 10/16/18 22:38 Dose: Not Given Calcitriol (Rocaltrol) 0.5 mcg PO DAILY [facility] Duloxetine HCl (Cymbalta) 120 mg PO DAILY [facility] Famotidine (Pepcid) 10 mg PO DAILY [facility] Fluticasone Propionate (Flonase Nasal [place]) 2 spray NASAL BID [facility] Last Admin: 10/16/18 22:32 Dose: 2 spray Heparin Sodium (Porcine) (Heparin Na) 5,000 unit SC Q8 [facility] Last Admin: 10/17/18 05:31 Dose: 5,000 unit Heparin Sodium (Porcine) () 2,500 units IV UD PRN PRN Reason: HEPARIN FLUSH Hydralazine HCl (Apresoline Iv) 10 mg IV Q4H PRN PRN PRN Reason: BLOOD PRESSURE ELEVATION Last Admin: 10/17/18 03:18 Dose: 10 mg [facility] Admin: 10/17/18 10:13 Dose: Not Given Sodium Chloride () 250 mls @ 15 mls/hr IV .[id number] PRN PRN Reason: SALINE FLUSH Lidocaine/Prilocaine (Emla Cream W/Tegaderm) 5 gm TOPICAL MoWeFr [facility] Loperamide HCl (Imodium) 4 mg PO BID PRN PRN PRN Reason: DIAHREA Lorazepam (Ativan) 1 mg PO BID PRN PRN PRN Reason: ANXIETY Magnesium Hydroxide (Milk Of Magnesia) 30 ml PO DAILY PRN PRN PRN Reason: Constipation Metoprolol Tartrate (Lopressor (Beta Cirilo)) 25 mg PO BID [facility] Last Admin: 10/17/18 09:42 Dose: Not Given Montelukast Sodium (Singulair) 10 mg PO DAILY [facility] Multivit/Ca Carb/B Cmplx/FA/Prenat (Nephrocaps, Renaphro) [facility] Ondansetron HCl (Zofran Odt) 4 mg PO Q8H PRN PRN PRN Reason: NAUSEA/VOMITING [facility]one () [facility] Pregabalin (Lyrica) 75 mg PO BID [facility] Last Admin: 10/16/18 22:39 Dose: Not Given Sevelamer Carbonate (Renvela) 1,600 mg PO TIDCM [facility] Last Admin: 10/17/18 09:42 Dose: Not Given Sodium Chloride () 5 - 15 ml IV UD PRN PRN Reason: SALINE FLUSH Sodium Chloride () 10 ml IV UD PRN PRN Reason: Dialysis Catheter Flush - Past Medical History Past Medical History (Chronic Problems): Chronic Problems (Last Reviewed 08/14/18 @ 10:39 by Cesar Sheth MD) Nonrheumatic mitral (valve) insufficiency (Chronic) Secondary pulmonary arterial hypertension (Chronic) Non-rheumatic tricuspid valve insufficiency (Chronic) End stage renal disease (Chronic) Chronic anemia (Chronic) Hypertension (Chronic) Narcolepsy (Chronic) Lupus nephritis (Chronic) Status post kidney and liver biopsy (fatty liver) Degenerative disc disease, cervical (Chronic) Cervical spondylosis (Chronic) Diabetes mellitus, type II (Chronic) SLE (systemic lupus erythematosus) (Chronic) - Past Surgical History Surgical History: - - failed AVF left arm, AVF right arm - Social History Smoking Status: Never smoker - Family History Maternal Family History: Family History (Last Reviewed 08/12/18 @ 18:36 by Javi Sanchez DO) Mother Hypertension Kidney disease ALS (amyotrophic lateral sclerosis) Father Heart disease Hypertension Kidney disease Diabetes History Items: Diabetes, High Cholesterol, Heart Disease, Hypertension, Renal Disease, - Paternal Family History: Family History (Last Reviewed 08/12/18 @ 18:36 by Javi Sanchez DO) Mother Hypertension Kidney disease ALS (amyotrophic lateral sclerosis) Father Heart disease Hypertension Kidney disease Diabetes History Items: Diabetes, High Cholesterol, Heart Disease, Hypertension, Renal Disease Sibling Family History: Family History (Last Reviewed 08/12/18 @ 18:36 by Javi Sanchez DO) Mother Hypertension Kidney disease ALS (amyotrophic lateral sclerosis) Father Heart disease Hypertension Kidney disease Diabetes History Items: Diabetes Review of Systems Unable to obtain accurate/complete ROS d/t: confusion, nonverbal Patient Problems: Active and Suspected Problems (Last Reviewed 08/14/18 @ 10:39 by Cesar Sheth MD) Hyperkalemia (Acute) Encephalopathy acute (Acute) - Physical Exam General: Confused, Disoriented - to place and time and to me HEENT: PERRLA, EOMI Lungs: Clear to auscultation Cardiovascular: Tachycardic Abdomen: Bowel Sounds Present, Soft, Non Tender, Non-Distended Extremities: No edema, - - BLE edema, AVF rt arm with weak thrill and faint bruit Musculoskeletal: No Muscle Wasting Neurological: - - not answering questions, firm hand vibrator equipment tester bilat Psych/Mental Status: Flat Affect Vital Signs Temp Pulse Resp BP Pulse Ox 98.1 F 116 H 10 L 122/88 H 100 10/17/18 09:00 10/17/18 10:30 10/17/18 10:00 10/17/18 10:30 10/17/18 10:00 Oxygen Flow Rate (L/min) 2 Oxygen Delivery Method Room Air Weight: 71 kg Body Mass Index (BMI) 26.6 Finger Stick Blood Glucose 181 Intake and Output for Last 24 Hours 10/15/18 10/16/18 10/17/18 23:59 23:59 23:59 Intake Total 15 / 15 Output Total 700 / 700 Balance -685 / -685 Microbiology Past 72 Hours 10/16/18 17:50 Influenza Types A,B Direct FA (TIMMY) - Final Mucosa - Nose Laboratory Tests Past 24 Hrs 10/16/18 10/16/18 10/16/18 17:45 17:45 17:45 WBC 8.9 RBC 3.27 L Hgb 10.2 L Hct 33.1 L MCV 101.2 H MCH 31.2 MCHC 30.8 L RDW 16.9 H RDW Differential 57.2 H Plt Count 178 MPV 9.3 Immature Gran % (Auto) 0.500 Neut % (Auto) 79.9 H Lymph % (Auto) 11.4 L [place] % (Auto) 6.5 Eos % (Auto) 1.6 Baso % (Auto) 0.1 Absolute Neuts (auto) 7.1 Absolute Lymphs (auto) 1.01 Total Counted Not Reportable Specimen Type Sample Site pH Bicarbonate Actual POC Total CO2 Base Excess O2 Saturation ABG pCO2 ABG pO2 [place]o Test O2 Delivery Device Blood Gas Notified Whom Blood Gas Notified Time Sodium 140 Potassium 5.2 H Chloride 104 Carbon Dioxide 28.0 Anion Gap 8 BUN 46 H Creatinine 7.62 H* Estim Creat Clear Calc 7.97 Est GFR (MDRD) Af Amer 7 L Est GFR (MDRD) Non-Af 6 L BUN/Creatinine Ratio 6.0 L Glucose 199 H Lactic Acid Calcium 9.4 Ammonia Troponin I 0.045 Urine Color Urine Clarity Urine pH Ur Specific [place] Urine Protein Urine Glucose (UA) Urine Ketones Urine Occult Blood Urine Nitrite Urine Bilirubin Urine Urobilinogen Ur Leukocyte Esterase Urine RBC Urine WBC Ur Squamous Epith Cells Urine Bacteria Urine Mucus Salicylates Urine Opiates Screen Urine Methadone Screen Acetaminophen Ur Barbiturates Screen Ur Phencyclidine Scrn Ur Amphetamines Screen U Methamphetamin-MDMA U Benzodiazepines Scrn Urine Cocaine Screen U Cannabinoids Screen Ur Drug Screen Comment Ethyl Alcohol < 3.0 Acetone Level 02/03/19 02/03/19 02/03/19 17:45 17:45 17:45 WBC RBC Hgb Hct MCV MCH MCHC RDW RDW Differential Plt Count MPV Immature Gran % (Auto) Neut % (Auto) Lymph % (Auto) [place] % (Auto) Eos % (Auto) Baso % (Auto) Absolute Neuts (auto) Absolute Lymphs (auto) Total Counted Specimen Type Sample Site pH Bicarbonate Actual POC Total CO2 Base Excess O2 Saturation ABG pCO2 ABG pO2 [place]o Test O2 Delivery Device Blood Gas Notified Whom Blood Gas Notified Time Sodium Potassium Chloride Carbon Dioxide Anion Gap BUN Creatinine Estim Creat Clear Calc Est GFR (MDRD) Af Amer Est GFR (MDRD) Non-Af BUN/Creatinine Ratio Glucose Lactic Acid 2.3 H Calcium Ammonia 27.0 Troponin I Urine Color Urine Clarity Urine pH Ur Specific [place] Urine Protein Urine Glucose (UA) Urine Ketones Urine Occult Blood Urine Nitrite Urine Bilirubin Urine Urobilinogen Ur Leukocyte Esterase Urine RBC Urine WBC Ur Squamous Epith Cells Urine Bacteria Urine Mucus Salicylates Urine Opiates Screen Urine Methadone Screen Acetaminophen Ur Barbiturates Screen Ur Phencyclidine Scrn Ur Amphetamines Screen U Methamphetamin-MDMA U Benzodiazepines Scrn Urine Cocaine Screen U Cannabinoids Screen Ur Drug Screen Comment Ethyl Alcohol Acetone Level NEGATIVE 10/16/18 10/16/18 10/16/18 17:45 18:20 18:20 WBC RBC Hgb Hct MCV MCH MCHC RDW RDW Differential Plt Count MPV Immature Gran % (Auto) Neut % (Auto) Lymph % (Auto) [place] % (Auto) Eos % (Auto) Baso % (Auto) Absolute Neuts (auto) Absolute Lymphs (auto) Total Counted Specimen Type Sample Site pH Bicarbonate Actual POC Total CO2 Base Excess O2 Saturation ABG pCO2 ABG pO2 [place] Test O2 Delivery Device Blood Gas Notified Whom Blood Gas Notified Time Sodium Potassium Chloride Carbon Dioxide Anion Gap BUN Creatinine Estim Creat Clear Calc Est GFR (MDRD) Af Amer Est GFR (MDRD) Non-Af BUN/Creatinine Ratio Glucose Lactic Acid Calcium Ammonia Troponin I Urine Color Yellow Urine Clarity Clear Urine pH 8.0 Ur Specific [place] 1.010 Urine Protein 100 H Urine Glucose (UA) 100 H Urine Ketones Negative Urine Occult Blood 25 H Urine Nitrite Negative Urine Bilirubin Negative Urine Urobilinogen Normal Ur Leukocyte Esterase Negative Urine RBC 0 SEEN Urine WBC 0 SEEN Ur Squamous Epith Cells 0 SEEN Urine Bacteria RARE Urine Mucus 0 SEEN Salicylates < 1.7 L Urine Opiates Screen NEGATIVE Urine Methadone Screen NEGATIVE Acetaminophen < 2.0 L Ur Barbiturates Screen NEGATIVE Ur Phencyclidine Scrn NEGATIVE Ur Amphetamines Screen NEGATIVE U Methamphetamin-MDMA NEGATIVE U Benzodiazepines Scrn NEGATIVE Urine Cocaine Screen NEGATIVE U Cannabinoids Screen NEGATIVE Ur Drug Screen Comment Ethyl Alcohol Acetone Level 10/16/18 10/16/18 10/17/18 18:22 22:10 00:09 WBC RBC Hgb Hct MCV MCH MCHC RDW RDW Differential Plt Count MPV Immature Gran % (Auto) Neut % (Auto) Lymph % (Auto) [place] % (Auto) Eos % (Auto) Baso % (Auto) Absolute Neuts (auto) Absolute Lymphs (auto) Total Counted Specimen Type ART ART Sample Site L Radial L Radial pH 7.48 H 7.44 Bicarbonate Actual 24.8 26.1 H POC Total CO2 26 27 Base Excess 1 2 O2 Saturation 98 97 ABG pCO2 33.2 L 38.3 ABG pO2 93 86 Romeo Test POS POS O2 Delivery Device Room Air Room Air Blood Gas Notified Whom ED MD ISLAS Blood Gas Notified Time 1810 10 Sodium Potassium Chloride Carbon Dioxide Anion Gap BUN Creatinine Estim Creat Clear Calc Est GFR (MDRD) Af Amer Est GFR (MDRD) Non-Af BUN/Creatinine Ratio Glucose Lactic Acid 2.3 H Calcium Ammonia Troponin I Urine Color Urine Clarity Urine pH Ur Specific [place] Urine Protein Urine Glucose (UA) Urine Ketones Urine Occult Blood Urine Nitrite Urine Bilirubin Urine Urobilinogen Ur Leukocyte Esterase Urine RBC Urine WBC Ur Squamous Epith Cells Urine Bacteria Urine Mucus Salicylates Urine Opiates Screen Urine Methadone Screen Acetaminophen Ur Barbiturates Screen Ur Phencyclidine Scrn Ur Amphetamines Screen U Methamphetamin-MDMA U Benzodiazepines Scrn Urine Cocaine Screen U Cannabinoids Screen Ur Drug Screen Comment Ethyl Alcohol Acetone Level 10/17/18 10/17/18 06:40 06:40 WBC 9.6 RBC 3.35 L Hgb 10.6 L Hct 33.4 L MCV 99.7 H MCH 31.6 MCHC 31.7 L RDW 16.7 H RDW Differential 52.4 H Plt Count 182 MPV 9.7 Immature Gran % (Auto) 0.500 Neut % (Auto) 67.2 Lymph % (Auto) 21.1 [place] % (Auto) 9.4 Eos % (Auto) 1.6 Baso % (Auto) 0.2 Absolute Neuts (auto) 6.5 Absolute Lymphs (auto) 2.03 Total Counted Not Reportable Specimen Type Sample Site pH Bicarbonate Actual POC Total CO2 Base Excess O2 Saturation ABG pCO2 ABG pO2 [place] Test O2 Delivery Device Blood Gas Notified Whom Blood Gas Notified Time Sodium 144 Potassium 5.8 H Chloride 107 Carbon Dioxide 25.0 Anion Gap 12 BUN 55 H Creatinine 8.48 H* Estim Creat Clear Calc 7.16 Est GFR (MDRD) Af Amer 7 L Est GFR (MDRD) Non-Af 5 L BUN/Creatinine Ratio 6.5 L Glucose 89 Lactic Acid Calcium 9.4 Ammonia Troponin I Urine Color Urine Clarity Urine pH Ur Specific [place] Urine Protein Urine Glucose (UA) Urine Ketones Urine Occult Blood Urine Nitrite Urine Bilirubin Urine Urobilinogen Ur Leukocyte Esterase Urine RBC Urine WBC Ur Squamous Epith Cells Urine Bacteria Urine Mucus Salicylates Urine Opiates Screen Urine Methadone Screen Acetaminophen Ur Barbiturates Screen Ur Phencyclidine Scrn Ur Amphetamines Screen U Methamphetamin-MDMA U Benzodiazepines Scrn Urine Cocaine Screen U Cannabinoids Screen Ur Drug Screen Comment Ethyl Alcohol Acetone Level POC Glucose 10/17/18 10/17/18 10/17/18 10:30 06:09 04:28 POC Glucose 102 95 97 10/17/18 10/16/18 10/16/18 01:51 23:48 20:53 POC Glucose 83 100 116 H 10/16/18 18:08 POC Glucose 181 H Clinical Impression(s) from Imaging Studies Brain CT 10/16/18 17:34 IMPRESSION: 1. No acute findings. 2. Right ethmoid polyp or retention cyst. Electronically Signed: Samira Warner MD at 18:36 EST Tel , Service support , Chest X-Ray 10/16/18 18:00 IMPRESSION: No acute process. Electronically Signed: Samira Warner MD at 19:05 EST Tel , Service support , Assessment/Plan All Active Problems (Last Reviewed 08/14/18 @ 10:39 by Cesar Sheth MD) Hyperkalemia (Acute) Extremity edema (Acute) Encephalopathy acute (Acute) 1. ESRD HD today and MWF. Seen on dialysis. Reduce fluid removal for hypotension, mild tachycardia. Last dialysis Wednesday as outpt. 2. Altered mental status, acute encephalopathy. CT head no acute findings. Tox screen negative 3. HTN elevated BP on admission, improved on dialysis 4. DM2 w/ hx hypoglycemia with elevated proinsulin and cpeptide. Referred to endocrine as outpt. 5. SLE 6. Anxiety disorder 7. Narcolepsy 8. Anemia hgb stable.
--- NOTE | 2018-10-17 11:37 | DIALYSIS ---
Hemodialysis x 3 hours with 2K bath; Tolerated well. Removed = -2100; RIJ CVC capped & locked with heparin per lumen fill volume. Report given to ROSHAN Coto
[2018-10-17] MEDS: Fluticasone 0.05% 1 SPRAY NASAL.SRY 2 SPRAY NASAL ×2 (12:43→21:43)
--- NOTE | 2018-10-17 13:23 | CASEMGMT ---
ROSHAN CM Readmission Note Last Admission: 09/24/18-09/29/18 DC Disposition: Home with [facility] Current Presentation: Confusion, metabolic encephalopathy due to uremia, HTN, fluid overload. Nephrology consult. For dialysis. -Call to [facility] to notify pt is in hospital. Will resume on dc if pt returns home. -PT/OT not ordered yet, pt did not pass mobility screening yet. -Dialysis: [facility] [id number]. Notified of pt admission and per dialysis center nurse- no treatments were missed last week. DC PLAN: undetermined
[2018-10-17] MEDS: Montelukast 10 MG Tablet PO (14:17)
[2018-10-17] MEDS: Famotidine 20 MG Tablet 10 MG PO (14:17)
[2018-10-17] MEDS: Folic Acid/Vitamin B Comp W-C 1 Capsule 1 CAP PO (14:17)
[2018-10-17] MEDS: Calcitriol 0.25 MCG Capsule 0.5 MCG PO (14:18)
[2018-10-17] MEDS: predniSONE 5 MG Tablet PO (14:18)
[2018-10-17] MEDS: DULoxetine Hcl 60 MG Capsule 120 MG PO (14:18)
[2018-10-17] MEDS: LORazepam 1 MG Tablet PO (14:34)
[2018-10-17 14:46] LABS: Bedside Glucose 110 mg/dL (70-110)
[2018-10-17 15:32] LABS: Anion Gap 11 (5-15); BUN 23 mg/dL (7-18); BUN/Creat Ratio 4.5 RATIO (10-20); Calcium,Total 8.7 mg/dL (8.5-10.1); Chloride 100 mmol/L (98-107); Creatinine, Serum 5.12 mg/dL (0.55-1.02); EST Glomerular Filtration Rate 10 mL/min (>60); Est Glom Filt Rate - Afr Amer 12 mL/min (>60); Estimated Creatinine Clearance 11.86 ml/min; Glucose 115 mg/dL (74-106); Potassium 4.4 mmol/L (3.5-5.1); Sodium Level 137 mmol/L (136-145)
[2018-10-17 17:32] LABS: Bedside Glucose 115 mg/dL (70-110)
[2018-10-17] MEDS: Hydroxychloroquine 200 MG Tablet PO (18:07)
[2018-10-17] MEDS: SEVELAMER CARBONATE 800 MG TABLET 1600 MG PO (18:07)
[2018-10-17] MEDS: Atorvastatin Calcium 20 MG Tablet PO (21:42)
[2018-10-17] MEDS: Metoprolol Tartrate 25 MG Tablet PO (21:43)
[2018-10-17] MEDS: Glycerin/Hypromellose/PEG400 15 ml Bottle 1 DRP EACH EYE (21:43)
[2018-10-17 21:51] LABS: Bedside Glucose 164 mg/dL (70-110)
[2018-10-17] MEDS: Pregabalin 75 MG Capsule PO (23:41)
[2018-10-18] VITALS (12 sets, daily range): BP systolic 127–161; BP diastolic 79–119; PULSE 57–104; RESP 14–21; TEMP 36.8–37.3; O2SAT 97–100
[2018-10-18 04:29] LABS: Absolute Lymphocyte Count 2.41 X10^3/ul (0.83-4.51); Absolute Neutrophil Count 4.9 X10^3/uL (2.0-7.7); Basophil# 0.01 X10^3/uL; Basophil% 0.1 % (0-1); Eosinophil# 0.13 X10^3/uL; Eosinophils% 1.6 % (0-5); Hematocrit 30.1 % (37-47); Hemoglobin 9.6 g/dl (12.0-15.0); Lymphocyte # 2.41 X10^3/ul (4.0); Mean Corp Hgb Conc 31.9 g/gl (32-36); Mean Corpuscular Hgb 31.6 pg (27.0-32.0); Mean Platelet Vol. 9.7 fl (6.2-12.0); Monocyte# 0.79 X10^3/uL; Monocyte% 9.5 % (0-10); Neutrophil # 4.92 X10^3/uL (2.7-7.7); Neutrophil % 59.3 % (47-70); POSITIVE COUNT NO; POSITIVE DIFFERENTIAL NO; POSITIVE MORPHOLOGY NO; Platelet Count 143 K/mm3 (150-450); RBC Distribution Width CV 17.7 % (11.6-14.6); RBC Distribution Width SD 59.9 fl (35.1-43.9); Red Blood Count 3.04 M/mm3 (4.2-5.4); White Blood Count 8.3 K/mm3 (4.4-11.0)
[2018-10-18 04:38] LABS: Anion Gap 12 (5-15); BUN 33 mg/dL (7-18); BUN/Creat Ratio 5.3 RATIO (10-20); Calcium,Total 8.9 mg/dL (8.5-10.1); Chloride 95 mmol/L (98-107); Creatinine, Serum 6.18 mg/dL (0.55-1.02); EST Glomerular Filtration Rate 8 mL/min (>60); Est Glom Filt Rate - Afr Amer 9 mL/min (>60); Estimated Creatinine Clearance 9.82 ml/min; Glucose 82 mg/dL (74-106); Potassium 4.6 mmol/L (3.5-5.1); Sodium Level 135 mmol/L (136-145)
[2018-10-18] MEDS: Heparin Injection (Vial) 5,000 UNIT/ML VIAL 5000 UNIT SC (06:13)
[2018-10-18 06:21] LABS: Bedside Glucose 115 mg/dL (70-110)
--- NOTE | 2018-10-18 07:37 | PN_ITS ---
Subjective: Patient did well overnight. No acute issues were reported. Patient remains on room air. Patient was able to tolerate full hemodialysis session yesterday. Patient was still difficult to arouse after dialysis, but is back to her baseline this morning. Patient states that she feels strong enough to go home. Patient has a vague memory of presenting to the ER. General: Alert, Oriented x3, Cooperative, No apparent distress, - - Appears older than stated age. Speaking in full sentences. HEENT: Atraumatic, PERRLA, EOMI, Normocephalic, - - No scleral icterus or injection noted. Oral: Moist Mucosa, No Gingival or Mucosal Lesions/ Ulcerations Neck: Supple, No JVD, No Nodes, Trachea Midline Lungs: Clear to auscultation, Normal air movement, No rhonchi, No wheeze, No rales, - - Hemodialysis catheter in right chest is clean, dry and intact. Cardiovascular: Regular rate, Regular Rhythm, Normal S1, Normal S2, No murmurs, No rub noted, No Gallop Abdomen: Bowel Sounds Present, Soft, Non Tender, Non-Distended Extremities: No clubbing, No cyanosis, Edema Skin: No rashes, No breakdown Musculoskeletal: No Tenderness to Palpation of Joints or Extremities Lymphatic: No Cervical, Supraclavicular, or Inguinal Adenopathy Neurological: Cranial nerves II-XII grossly intact, Neuro grossly intact, Motor Exam 5/5 strength throughout Psych/Mental Status: Alert and oriented to time, place, person, mood and affect Vital Signs Temp Pulse Resp BP Pulse Ox 36.8 C 97 17 156/81 H 98 10/18/18 04:00 10/18/18 06:00 10/18/18 06:00 10/18/18 06:00 10/18/18 06:00 Oxygen Flow Rate (L/min) 2 Oxygen Delivery Method Room Air Weight: 71.8 kg Body Mass Index (BMI) 26.6 Finger Stick Blood Glucose 181 Intake and Output for Last 24 Hours 10/16/18 10/17/18 10/18/18 23:59 23:59 23:59 Intake Total 265 / 265 1040 / 1040 Output Total 5030 / 5030 325 / 325 Balance -4765 / -4765 715 / 715 Labs (Last 48 Hours) 10/16/18 10/16/18 10/16/18 17:45 17:45 17:45 WBC 8.9 RBC 3.27 L Hgb 10.2 L Hct 33.1 L MCV 101.2 H MCH 31.2 MCHC 30.8 L RDW 16.9 H RDW Differential 57.2 H Plt Count 178 MPV 9.3 Immature Gran % (Auto) 0.500 Neut % (Auto) 79.9 H Lymph % (Auto) 11.4 L [place] % (Auto) 6.5 Eos % (Auto) 1.6 Baso % (Auto) 0.1 Absolute Neuts (auto) 7.1 Absolute Lymphs (auto) 1.01 Total Counted Not Reportable Specimen Type Sample Site pH Bicarbonate Actual POC Total CO2 Base Excess O2 Saturation ABG pCO2 ABG pO2 Romeo Test O2 Delivery Device Blood Gas Notified Whom Blood Gas Notified Time Sodium 140 Potassium 5.2 H Chloride 104 Carbon Dioxide 28.0 Anion Gap 8 BUN 46 H Creatinine 7.62 H* Estim Creat Clear Calc 7.97 Est GFR (MDRD) Af Amer 7 L Est GFR (MDRD) Non-Af 6 L BUN/Creatinine Ratio 6.0 L Glucose 199 H Lactic Acid Calcium 9.4 Ammonia Troponin I 0.045 Urine Color Urine Clarity Urine pH Ur Specific [place] Urine Protein Urine Glucose (UA) Urine Ketones Urine Occult Blood Urine Nitrite Urine Bilirubin Urine Urobilinogen Ur Leukocyte Esterase Urine RBC Urine WBC Ur Squamous Epith Cells Urine Bacteria Urine Mucus Salicylates Urine Opiates Screen Urine Methadone Screen Acetaminophen Ur Barbiturates Screen Ur Phencyclidine Scrn Ur Amphetamines Screen U Methamphetamin-MDMA U Benzodiazepines Scrn Urine Cocaine Screen U Cannabinoids Screen Ur Drug Screen Comment Ethyl Alcohol < 3.0 Acetone Level POC Glucose 10/16/18 10/16/18 10/16/18 17:45 17:45 17:45 WBC RBC Hgb Hct MCV MCH MCHC RDW RDW Differential Plt Count MPV Immature Gran % (Auto) Neut % (Auto) Lymph % (Auto) [place] % (Auto) Eos % (Auto) Baso % (Auto) Absolute Neuts (auto) Absolute Lymphs (auto) Total Counted Specimen Type Sample Site pH Bicarbonate Actual POC Total CO2 Base Excess O2 Saturation ABG pCO2 ABG pO2 Romeo Test O2 Delivery Device Blood Gas Notified Whom Blood Gas Notified Time Sodium Potassium Chloride Carbon Dioxide Anion Gap BUN Creatinine Estim Creat Clear Calc Est GFR (MDRD) Af Amer Est GFR (MDRD) Non-Af BUN/Creatinine Ratio Glucose Lactic Acid 2.3 H Calcium Ammonia 27.0 Troponin I Urine Color Urine Clarity Urine pH Ur Specific [place] Urine Protein Urine Glucose (UA) Urine Ketones Urine Occult Blood Urine Nitrite Urine Bilirubin Urine Urobilinogen Ur Leukocyte Esterase Urine RBC Urine WBC Ur Squamous Epith Cells Urine Bacteria Urine Mucus Salicylates Urine Opiates Screen Urine Methadone Screen Acetaminophen Ur Barbiturates Screen Ur Phencyclidine Scrn Ur Amphetamines Screen U Methamphetamin-MDMA U Benzodiazepines Scrn Urine Cocaine Screen U Cannabinoids Screen Ur Drug Screen Comment Ethyl Alcohol Acetone Level NEGATIVE POC Glucose 10/16/18 10/16/18 10/16/18 17:45 18:08 18:20 WBC RBC Hgb Hct MCV MCH MCHC RDW RDW Differential Plt Count MPV Immature Gran % (Auto) Neut % (Auto) Lymph % (Auto) [place] % (Auto) Eos % (Auto) Baso % (Auto) Absolute Neuts (auto) Absolute Lymphs (auto) Total Counted Specimen Type Sample Site pH Bicarbonate Actual POC Total CO2 Base Excess O2 Saturation ABG pCO2 ABG pO2 Romeo Test O2 Delivery Device Blood Gas Notified Whom Blood Gas Notified Time Sodium Potassium Chloride Carbon Dioxide Anion Gap BUN Creatinine Estim Creat Clear Calc Est GFR (MDRD) Af Amer Est GFR (MDRD) Non-Af BUN/Creatinine Ratio Glucose Lactic Acid Calcium Ammonia Troponin I Urine Color Yellow Urine Clarity Clear Urine pH 8.0 Ur Specific [place] 1.010 Urine Protein 100 H Urine Glucose (UA) 100 H Urine Ketones Negative Urine Occult Blood 25 H Urine Nitrite Negative Urine Bilirubin Negative Urine Urobilinogen Normal Ur Leukocyte Esterase Negative Urine RBC 0 SEEN Urine WBC 0 SEEN Ur Squamous Epith Cells 0 SEEN Urine Bacteria RARE Urine Mucus 0 SEEN Salicylates < 1.7 L Urine Opiates Screen Urine Methadone Screen Acetaminophen < 2.0 L Ur Barbiturates Screen Ur Phencyclidine Scrn Ur Amphetamines Screen U Methamphetamin-MDMA U Benzodiazepines Scrn Urine Cocaine Screen U Cannabinoids Screen Ur Drug Screen Comment Ethyl Alcohol Acetone Level POC Glucose 181 H 10/16/18 10/16/18 10/16/18 18:20 18:22 20:53 WBC RBC Hgb Hct MCV MCH MCHC RDW RDW Differential Plt Count MPV Immature Gran % (Auto) Neut % (Auto) Lymph % (Auto) [place] % (Auto) Eos % (Auto) Baso % (Auto) Absolute Neuts (auto) Absolute Lymphs (auto) Total Counted Specimen Type ART Sample Site L Radial pH 7.48 H Bicarbonate Actual 24.8 POC Total CO2 26 Base Excess 1 O2 Saturation 98 ABG pCO2 33.2 L ABG pO2 93 Romeo Test POS O2 Delivery Device Room Air Blood Gas Notified Whom ED MD Blood Gas Notified Time 1810 Sodium Potassium Chloride Carbon Dioxide Anion Gap BUN Creatinine Estim Creat Clear Calc Est GFR (MDRD) Af Amer Est GFR (MDRD) Non-Af BUN/Creatinine Ratio Glucose Lactic Acid Calcium Ammonia Troponin I Urine Color Urine Clarity Urine pH Ur Specific [place] Urine Protein Urine Glucose (UA) Urine Ketones Urine Occult Blood Urine Nitrite Urine Bilirubin Urine Urobilinogen Ur Leukocyte Esterase Urine RBC Urine WBC Ur Squamous Epith Cells Urine Bacteria Urine Mucus Salicylates Urine Opiates Screen NEGATIVE Urine Methadone Screen NEGATIVE Acetaminophen Ur Barbiturates Screen NEGATIVE Ur Phencyclidine Scrn NEGATIVE Ur Amphetamines Screen NEGATIVE U Methamphetamin-MDMA NEGATIVE U Benzodiazepines Scrn NEGATIVE Urine Cocaine Screen NEGATIVE U Cannabinoids Screen NEGATIVE Ur Drug Screen Comment Ethyl Alcohol Acetone Level POC Glucose 116 H 10/16/18 10/16/18 10/17/18 22:10 23:48 00:09 WBC RBC Hgb Hct MCV MCH MCHC RDW RDW Differential Plt Count MPV Immature Gran % (Auto) Neut % (Auto) Lymph % (Auto) [place] % (Auto) Eos % (Auto) Baso % (Auto) Absolute Neuts (auto) Absolute Lymphs (auto) Total Counted Specimen Type ART Sample Site L Radial pH 7.44 Bicarbonate Actual 26.1 H POC Total CO2 27 Base Excess 2 O2 Saturation 97 ABG pCO2 38.3 ABG pO2 86 Romeo Test POS O2 Delivery Device Room Air Blood Gas Notified Whom RN Blood Gas Notified Time 10 Sodium Potassium Chloride Carbon Dioxide Anion Gap BUN Creatinine Estim Creat Clear Calc Est GFR (MDRD) Af Amer Est GFR (MDRD) Non-Af BUN/Creatinine Ratio Glucose Lactic Acid 2.3 H Calcium Ammonia Troponin I Urine Color Urine Clarity Urine pH Ur Specific [place] Urine Protein Urine Glucose (UA) Urine Ketones Urine Occult Blood Urine Nitrite Urine Bilirubin Urine Urobilinogen Ur Leukocyte Esterase Urine RBC Urine WBC Ur Squamous Epith Cells Urine Bacteria Urine Mucus Salicylates Urine Opiates Screen Urine Methadone Screen Acetaminophen Ur Barbiturates Screen Ur Phencyclidine Scrn Ur Amphetamines Screen U Methamphetamin-MDMA U Benzodiazepines Scrn Urine Cocaine Screen U Cannabinoids Screen Ur Drug Screen Comment Ethyl Alcohol Acetone Level POC Glucose 100 10/17/18 10/17/18 10/17/18 01:51 04:28 06:09 WBC RBC Hgb Hct MCV MCH MCHC RDW RDW Differential Plt Count MPV Immature Gran % (Auto) Neut % (Auto) Lymph % (Auto) [place] % (Auto) Eos % (Auto) Baso % (Auto) Absolute Neuts (auto) Absolute Lymphs (auto) Total Counted Specimen Type Sample Site pH Bicarbonate Actual POC Total CO2 Base Excess O2 Saturation ABG pCO2 ABG pO2 Romeo Test O2 Delivery Device Blood Gas Notified Whom Blood Gas Notified Time Sodium Potassium Chloride Carbon Dioxide Anion Gap BUN Creatinine Estim Creat Clear Calc Est GFR (MDRD) Af Amer Est GFR (MDRD) Non-Af BUN/Creatinine Ratio Glucose Lactic Acid Calcium Ammonia Troponin I Urine Color Urine Clarity Urine pH Ur Specific [place] Urine Protein Urine Glucose (UA) Urine Ketones Urine Occult Blood Urine Nitrite Urine Bilirubin Urine Urobilinogen Ur Leukocyte Esterase Urine RBC Urine WBC Ur Squamous Epith Cells Urine Bacteria Urine Mucus Salicylates Urine Opiates Screen Urine Methadone Screen Acetaminophen Ur Barbiturates Screen Ur Phencyclidine Scrn Ur Amphetamines Screen U Methamphetamin-MDMA U Benzodiazepines Scrn Urine Cocaine Screen U Cannabinoids Screen Ur Drug Screen Comment Ethyl Alcohol Acetone Level POC Glucose 83 97 95 10/17/18 10/17/18 10/17/18 06:40 06:40 10:30 WBC 9.6 RBC 3.35 L Hgb 10.6 L Hct 33.4 L MCV 99.7 H MCH 31.6 MCHC 31.7 L RDW 16.7 H RDW Differential 52.4 H Plt Count 182 MPV 9.7 Immature Gran % (Auto) 0.500 Neut % (Auto) 67.2 Lymph % (Auto) 21.1 [place] % (Auto) 9.4 Eos % (Auto) 1.6 Baso % (Auto) 0.2 Absolute Neuts (auto) 6.5 Absolute Lymphs (auto) 2.03 Total Counted Not Reportable Specimen Type Sample Site pH Bicarbonate Actual POC Total CO2 Base Excess O2 Saturation ABG pCO2 ABG pO2 Romeo Test O2 Delivery Device Blood Gas Notified Whom Blood Gas Notified Time Sodium 144 Potassium 5.8 H Chloride 107 Carbon Dioxide 25.0 Anion Gap 12 BUN 55 H Creatinine 8.48 H* Estim Creat Clear Calc 7.16 Est GFR (MDRD) Af Amer 7 L Est GFR (MDRD) Non-Af 5 L BUN/Creatinine Ratio 6.5 L Glucose 89 Lactic Acid Calcium 9.4 Ammonia Troponin I Urine Color Urine Clarity Urine pH Ur Specific [place] Urine Protein Urine Glucose (UA) Urine Ketones Urine Occult Blood Urine Nitrite Urine Bilirubin Urine Urobilinogen Ur Leukocyte Esterase Urine RBC Urine WBC Ur Squamous Epith Cells Urine Bacteria Urine Mucus Salicylates Urine Opiates Screen Urine Methadone Screen Acetaminophen Ur Barbiturates Screen Ur Phencyclidine Scrn Ur Amphetamines Screen U Methamphetamin-MDMA U Benzodiazepines Scrn Urine Cocaine Screen U Cannabinoids Screen Ur Drug Screen Comment Ethyl Alcohol Acetone Level POC Glucose 102 10/17/18 10/17/18 10/17/18 14:41 15:05 17:23 WBC RBC Hgb Hct MCV MCH MCHC RDW RDW Differential Plt Count MPV Immature Gran % (Auto) Neut % (Auto) Lymph % (Auto) [place] % (Auto) Eos % (Auto) Baso % (Auto) Absolute Neuts (auto) Absolute Lymphs (auto) Total Counted Specimen Type Sample Site pH Bicarbonate Actual POC Total CO2 Base Excess O2 Saturation ABG pCO2 ABG pO2 Romeo Test O2 Delivery Device Blood Gas Notified Whom Blood Gas Notified Time Sodium 137 Potassium 4.4 Chloride 100 Carbon Dioxide 26.0 Anion Gap 11 BUN 23 H Creatinine 5.12 H Estim Creat Clear Calc 11.86 Est GFR (MDRD) Af Amer 12 L Est GFR (MDRD) Non-Af 10 L BUN/Creatinine Ratio 4.5 L Glucose 115 H Lactic Acid Calcium 8.7 Ammonia Troponin I Urine Color Urine Clarity Urine pH Ur Specific [place] Urine Protein Urine Glucose (UA) Urine Ketones Urine Occult Blood Urine Nitrite Urine Bilirubin Urine Urobilinogen Ur Leukocyte Esterase Urine RBC Urine WBC Ur Squamous Epith Cells Urine Bacteria Urine Mucus Salicylates Urine Opiates Screen Urine Methadone Screen Acetaminophen Ur Barbiturates Screen Ur Phencyclidine Scrn Ur Amphetamines Screen U Methamphetamin-MDMA U Benzodiazepines Scrn Urine Cocaine Screen U Cannabinoids Screen Ur Drug Screen Comment Ethyl Alcohol Acetone Level POC Glucose 110 115 H 10/17/18 10/18/18 10/18/18 21:38 04:15 04:15 WBC 8.3 RBC 3.04 L Hgb 9.6 L Hct 30.1 L MCV 99.0 MCH 31.6 MCHC 31.9 L RDW 17.7 H RDW Differential 59.9 H Plt Count 143 L MPV 9.7 Immature Gran % (Auto) 0.500 Neut % (Auto) 59.3 Lymph % (Auto) 29.0 [place] % (Auto) 9.5 Eos % (Auto) 1.6 Baso % (Auto) 0.1 Absolute Neuts (auto) 4.9 Absolute Lymphs (auto) 2.41 Total Counted Not Reportable Specimen Type Sample Site pH Bicarbonate Actual POC Total CO2 Base Excess O2 Saturation ABG pCO2 ABG pO2 Romeo Test O2 Delivery Device Blood Gas Notified Whom Blood Gas Notified Time Sodium 135 L Potassium 4.6 Chloride 95 L Carbon Dioxide 28.0 Anion Gap 12 BUN 33 H Creatinine 6.18 H Estim Creat Clear Calc 9.82 Est GFR (MDRD) Af Amer 9 L Est GFR (MDRD) Non-Af 8 L BUN/Creatinine Ratio 5.3 L Glucose 82 Lactic Acid Calcium 8.9 Ammonia Troponin I Urine Color Urine Clarity Urine pH Ur Specific [place] Urine Protein Urine Glucose (UA) Urine Ketones Urine Occult Blood Urine Nitrite Urine Bilirubin Urine Urobilinogen Ur Leukocyte Esterase Urine RBC Urine WBC Ur Squamous Epith Cells Urine Bacteria Urine Mucus Salicylates Urine Opiates Screen Urine Methadone Screen Acetaminophen Ur Barbiturates Screen Ur Phencyclidine Scrn Ur Amphetamines Screen U Methamphetamin-MDMA U Benzodiazepines Scrn Urine Cocaine Screen U Cannabinoids Screen Ur Drug Screen Comment Ethyl Alcohol Acetone Level POC Glucose 164 H 10/18/18 06:11 WBC RBC Hgb Hct MCV MCH MCHC RDW RDW Differential Plt Count MPV Immature Gran % (Auto) Neut % (Auto) Lymph % (Auto) [place] % (Auto) Eos % (Auto) Baso % (Auto) Absolute Neuts (auto) Absolute Lymphs (auto) Total Counted Specimen Type Sample Site pH Bicarbonate Actual POC Total CO2 Base Excess O2 Saturation ABG pCO2 ABG pO2 Romeo Test O2 Delivery Device Blood Gas Notified Whom Blood Gas Notified Time Sodium Potassium Chloride Carbon Dioxide Anion Gap BUN Creatinine Estim Creat Clear Calc Est GFR (MDRD) Af Amer Est GFR (MDRD) Non-Af BUN/Creatinine Ratio Glucose Lactic Acid Calcium Ammonia Troponin I Urine Color Urine Clarity Urine pH Ur Specific [place] Urine Protein Urine Glucose (UA) Urine Ketones Urine Occult Blood Urine Nitrite Urine Bilirubin Urine Urobilinogen Ur Leukocyte Esterase Urine RBC Urine WBC Ur Squamous Epith Cells Urine Bacteria Urine Mucus Salicylates Urine Opiates Screen Urine Methadone Screen Acetaminophen Ur Barbiturates Screen Ur Phencyclidine Scrn Ur Amphetamines Screen U Methamphetamin-MDMA U Benzodiazepines Scrn Urine Cocaine Screen U Cannabinoids Screen Ur Drug Screen Comment Ethyl Alcohol Acetone Level POC Glucose 115 H Microbiology 10/16/18 17:50 Mucosa - Nose Influenza Types A,B Direct FA (TMIMY) - Final Medical Necessity - Tobacco Use Smoking Status: Never smoker Assessment/Plan All Active Problems (Last Reviewed 08/14/18 @ 10:39 by Cesar Sheth MD) Hyperkalemia (Acute) Extremity edema (Acute) Encephalopathy acute (Acute) RECOMMENDATIONS: 1. Increase activity as tolerated 2. Dialysis per nephrology 3. Hemodynamically stable on room air. Will sign off from a critical care perspective 4. Likely okay to discharge from my perspective IMPRESSIONS: 1. Acute metabolic encephalopathy RESOLVED > Unclear etiology at this time. Patient did not miss any hemodialysis, but had significant change in mentation yesterday. This has resolved this morning. Unclear if this is a medication effect, but patient denies any new medications, prescription or [id number], over the weekend. 2. Hypertensive urgency secondary to probable missed hemodialysis Patient does have a history of fluid responsive hypertensive urgency. Patient's blood pressure is much improved following hemodialysis 3. Diabetes mellitus type 2 Patient's blood sugars are slightly elevated at this time. We will continue to monitor. No signs or symptoms of DKA. 4. End-stage renal disease with history of noncompliance Patient was significant elevation of creatinine on presentation. Patient does have a history of missing hemodialysis treatments for various reasons. Nephrology following. 5. History of noncompliance/lupus/Sjogren's syndrome/cervical spondylitis/chronic immunosuppression/secondary pulmonary hypertension Complicates care, management, recovery and prognosis. Patient does have p oor venous access at this time. Patient may require port placement for venous access given current situation. Patient does have a history of previous fistula placement. Code Visit Inpatient E&M: 66115 Subs Hosp L2
[2018-10-18] MEDS: DULoxetine Hcl 60 MG Capsule 120 MG PO (08:44)
[2018-10-18] MEDS: Calcitriol 0.25 MCG Capsule 0.5 MCG PO (08:44)
[2018-10-18] MEDS: predniSONE 5 MG Tablet PO (08:45)
[2018-10-18] MEDS: Hydroxychloroquine 200 MG Tablet PO (08:45)
[2018-10-18] MEDS: Famotidine 20 MG Tablet 10 MG PO (08:45)
[2018-10-18] MEDS: Folic Acid/Vitamin B Comp W-C 1 Capsule 1 CAP PO (08:45)
[2018-10-18] MEDS: SEVELAMER CARBONATE 800 MG TABLET 1600 MG PO (08:46)
[2018-10-18] MEDS: Montelukast 10 MG Tablet PO (08:47)
[2018-10-18] MEDS: Fluticasone 0.05% 1 SPRAY NASAL.SRY 2 SPRAY NASAL (08:48)
[2018-10-18] MEDS: Metoprolol Tartrate 25 MG Tablet PO (08:48)
[2018-10-18] MEDS: Pregabalin 75 MG Capsule PO (08:50)
--- NOTE | 2018-10-18 09:26 | PN.RENAL_ITS ---
Patient Problems: Active and Suspected Problems (Last Reviewed 08/14/18 @ 10:39 by Cesar Sheth MD) Hyperkalemia (Acute) Encephalopathy acute (Acute) Subjective: mental status back to baseline. BP stable on metoprolol. - Physical Exam General: Alert, Oriented x3, Cooperative, No apparent distress Neck: Supple Lungs: Clear to auscultation Cardiovascular: Regular rate Abdomen: Bowel Sounds Present Extremities: No edema, - - mild upper ext swelling Musculoskeletal: No Muscle Wasting Psych/Mental Status: Normal Affect, Appropriate, Alert and oriented to time, place, person, mood and affect Vital Signs Temp Pulse Resp BP Pulse Ox 98.3 F 99 17 161/97 H 97 10/18/18 04:00 10/18/18 08:48 10/18/18 06:00 10/18/18 08:48 10/18/18 06:51 Oxygen Flow Rate (L/min) 2 Oxygen Delivery Method Room Air Weight: 71.8 kg Body Mass Index (BMI) 26.6 Finger Stick Blood Glucose 181 Intake and Output for Last 24 Hours 10/16/18 10/17/18 10/18/18 23:59 23:59 23:59 Intake Total 265 / 265 1040 / 1040 Output Total 5030 / 5030 325 / 325 Balance -4765 / -4765 715 / 715 Microbiology Past 72 Hours 10/16/18 17:50 Influenza Types A,B Direct FA (TIMMY) - Final Mucosa - Nose Laboratory Tests Past 24 Hrs 10/17/18 10/18/18 10/18/18 15:05 04:15 04:15 WBC 8.3 RBC 3.04 L Hgb 9.6 L Hct 30.1 L MCV 99.0 MCH 31.6 MCHC 31.9 L RDW 17.7 H RDW Differential 59.9 H Plt Count 143 L MPV 9.7 Immature Gran % (Auto) 0.500 Neut % (Auto) 59.3 Lymph % (Auto) 29.0 [place] % (Auto) 9.5 Eos % (Auto) 1.6 Baso % (Auto) 0.1 Absolute Neuts (auto) 4.9 Absolute Lymphs (auto) 2.41 Total Counted Not Reportable Sodium 137 135 L Potassium 4.4 4.6 Chloride 100 95 L Carbon Dioxide 26.0 28.0 Anion Gap 11 12 BUN 23 H 33 H Creatinine 5.12 H 6.18 H Estim Creat Clear Calc 11.86 9.82 Est GFR (MDRD) Af Amer 12 L 9 L Est GFR (MDRD) Non-Af 10 L 8 L BUN/Creatinine Ratio 4.5 L 5.3 L Glucose 115 H 82 Calcium 8.7 8.9 POC Glucose 10/18/18 10/17/18 10/17/18 06:11 21:38 17:23 POC Glucose 115 H 164 H 115 H 10/17/18 10/17/18 14:41 10:30 POC Glucose 110 102 Medical Necessity - Tobacco Use Smoking Status: Never smoker Assessment/Plan All Active Problems (Last Reviewed 08/14/18 @ 10:39 by Cesar Sheth MD) Hyperkalemia (Acute) Extremity edema (Acute) Encephalopathy acute (Acute) 1. ESRD HD MWF. 2. Altered mental status, acute encephalopathy. CT head no acute findings. Tox screen negative. Possible hypertensive encephalopathy vs post ictal. 3. HTN elevated BP on admission, improved on metoprolol alone 4. DM2 w/ hx hypoglycemia with elevated proinsulin and cpeptide. Referred to endocrine as outpt. 5. SLE 6. Anxiety disorder 7. Narcolepsy 8. Anemia hgb stable.
--- NOTE | 2018-10-18 09:27 | PCM.DC ---
- Discharge Diagnoses Current Active Problems: Current Active and Chronic Problems (Last Reviewed 08/14/18 @ 10:39 by Cesar Sheth MD) Hyperkalemia (Acute) Encephalopathy acute (Acute) You will use the following diet at home:: Renal (restricted protein/sodium) Discharge Activity: Return to Normal Activity, May Not Drive - until cleared by neurology. Call your doctor if you observe: - - unresponsiveness. Allergies/Adverse Reactions: Allergies LONG Inhibitors Allergy (Verified 10/16/18 17:14) Angioedema adhesive Allergy (Verified 10/16/18 17:14) Rash diphenhydramine [From Benadryl] Allergy (Verified 10/16/18 17:14) Unknown lisinopril Allergy (Verified 10/16/18 17:14) Angioedema Sulfa (Sulfonamide Antibiotics) Allergy (Verified 10/16/18 17:14) Rash sulfamethoxazole [From Bactrim] Allergy (Verified 10/16/18 17:14) Rash trimethoprim [From Bactrim] Allergy (Verified 10/16/18 17:14) Rash Angioderm Adverse Reaction (Unknown, Uncoded 10/16/18 17:14) Unknown Medications to take at Discharge Duloxetine Hcl [Cymbalta] 120 mg PO DAILY 10/01/16 Hydroxychloroquine [Plaquenil] 200 mg PO BIDCM 10/01/16 Atorvastatin Calcium [Lipitor] 20 mg PO QHS 01/20/18 Pregabalin [Lyrica] 75 mg PO BID 08/12/18 Sevelamer Carbonate [Renvela] 1,600 mg PO TIDCM 08/12/18 Ergocalciferol (Vitamin D2) [Drisdol] 50,000 unit PO QMONTH 08/15/18 Baclofen 10 mg PO TID PRN PRN 09/09/18 Dextran 70/Hypromellose [Nature's Tears Eye Drops] 1 drop OP QHS 09/09/18 Famotidine 10 mg PO DAILY 09/09/18 Fluticasone 0.05% [Flonase Nasal [place]] 2 spray NASAL BID 09/09/18 Metoprolol Tartrate [Lopressor (beta pippa)] 25 mg PO BID 09/09/18 Prednisone 5 mg PO DAILY 09/09/18 Dextroamphetamine/Amphetamine [Adderall 15 mg Tablet] 15 mg PO BID 10/10/18 Loperamide HCl [Loperamide] 4 mg PO BID PRN PRN 10/10/18 Lorazepam [Ativan] 1 mg PO BID PRN PRN 10/10/18 Acetaminophen [Extra Strength Non-Aspirin] 500 mg PO Q6H PRN PRN 10/16/18 Acyclovir [Zovirax] 400 mg PO TID PRN PRN 10/16/18 Calcitriol 0.5 mcg PO DAILY 10/16/18 CycloSPORINE Ophthalmic [Restasis Ophthalmic] 1 drop EACH EYE BID 10/16/18 Dextroamphetamine Sulfate [Dexedrine] 20 mg PO DAILY 10/16/18 Folic Acid/Vit B Complex and C [Renal-Lobo Tablet] 0.8 mg PO DAILY 10/16/18 Lidocaine/Prilocaine [Lidocaine-Prilocaine Cream] 1 applic TP [id number] 10/16/18 Montelukast [Singulair] 10 mg PO DAILY 10/16/18 Ondansetron HCl [Zofran] 4 mg PO Q8H PRN PRN 10/16/18 Primary Care Physician: Mitchell Bowen Chi, MD [Primary Care Provider] - Within 2 Weeks Test Results: Test results from this visit will be discussed in further detail at your follow-up appointment, if applicable. Please Follow Up With: Dev Marie MD - Neurology for confusion. Evaluate for seizure disorder. When: 2-4 weeks. Please Follow Up With: Endocrinology. When: 2-4 weeks. [place] [phone]. [facility] [phone] Proposed Discharge Date: 10/18/18
--- NOTE | 2018-10-18 09:39 | PCM.DC.SUM ---
Discharge Date and Diagnosis - Problem List Patient Problems: Active and Suspected Problems (Last Reviewed 08/14/18 @ 10:39 by Cesar Sheth MD) Hyperkalemia (Acute) Encephalopathy acute (Acute) Date of Admission: 10/16/18 Date of Discharge: 10/18/18 - Primary Discharge Diagnosis Active and Suspected Problems (Last Reviewed 08/14/18 @ 10:39 by Cesar Sheth MD) Hyperkalemia (Acute) Encephalopathy acute (Acute) - Secondary Discharge Diagnosis Chronic Problems (Last Reviewed 08/14/18 @ 10:39 by Cesar Sheth MD) Nonrheumatic mitral (valve) insufficiency (Chronic) Secondary pulmonary arterial hypertension (Chronic) Non-rheumatic tricuspid valve insufficiency (Chronic) End stage renal disease (Chronic) Chronic anemia (Chronic) Hypertension (Chronic) Narcolepsy (Chronic) Lupus nephritis (Chronic) Status post kidney and liver biopsy (fatty liver) Degenerative disc disease, cervical (Chronic) Cervical spondylosis (Chronic) Diabetes mellitus, type II (Chronic) SLE (systemic lupus erythematosus) (Chronic) Hospital Course and Treatment Imaging Results: Clinical Impression(s) from Imaging Studies Brain CT 10/16/18 17:34 IMPRESSION: 1. No acute findings. 2. Right ethmoid polyp or retention cyst. Electronically Signed: Samira Warner MD at 18:36 EST Tel , Service support , Chest X-Ray 10/16/18 18:00 IMPRESSION: No acute process. Electronically Signed: Samira Warner MD at 19:05 EST Tel , Service support , Ross Esparza MD: [facility] Arline Ambriz, DO: Nephrology. Operations: None Procedures: Dialysis Summary of Care Provided: The patient is a 48 year old F presents with confusion and unresponsiveness. Patient had a head CT that was negative. Patient is a labs were not uremia. Patient did have elevated blood pressure into the 200s. Patient later did endorse that she does not take her blood pressure medications on her dialysis days. Patient did receive dialysis on the day and kept perseverating and saying yesterday. Today, the patient is better back to her baseline. And is unclear what the etiology of this patient's confusion is. It has been documented that this is due to polypharmacy and narcolepsy, hypoglycemia. Therefore is not been any kind at unifying diagnosis. Additionally, patient denies any drug use and denies any synthetic drugs as drug screens have been negative here. One further thing I feel is important to be evaluated is for underlying seizure disorder. Patient denies any seizure disorder but has not had a complete workup from what I can gather looking at the data. Patient has had an MRI which is negative but I do not see any results of an EEG. I did advise the patient to follow-up with neurology and given the concern for the confusion and needing to rule out a seizure I advised patient not until evaluated and cleared by neurology. Patient is expressed understanding to this. Patient was advised by Dr. Ambriz to take her blood pressure medications on her dialysis days. Did not recommend any additional medications at this time as patient has had issues with hypotension in the past. Patient's blood sugars remained stable here and she did not have any evidence of hypoglycemia. Patient stated that before she started feeling ill, she checked her blood sugars in the 260 range. Patient has had a history of elevatus C-peptide as well as pro-insulin. Patient has been evaluated for tumors which were negative but the patient recommend follow-up with endocrinology for evaluation for insulinoma. [] Patient Problems: Active and Suspected Problems (Last Reviewed 08/14/18 @ 10:39 by Cesar Sheth MD) Hyperkalemia (Acute) Encephalopathy acute (Acute) - Physical Exam General: Alert, No apparent distress HEENT: Atraumatic, Normocephalic Oral: Moist Mucosa, No Gingival or Mucosal Lesions/ Ulcerations Neck: No Nodes, Thyroid Normal Size and Texture Lungs: Clear to auscultation, Normal air movement, No rhonchi, No wheeze Cardiovascular: Regular rate, Regular Rhythm, Normal S1, Normal S2, No murmurs Abdomen: Bowel Sounds Present, Soft, Non Tender, Non-Distended, No Hepato-splenomegaly Extremities: No edema, No Calf Tenderness Psych/Mental Status: Normal Affect, Appropriate Vital Signs Temp Pulse Resp BP Pulse Ox 37.1 C 104 H 18 151/119 H 100 10/18/18 08:00 10/18/18 09:00 10/18/18 09:00 10/18/18 09:00 10/18/18 09:00 Oxygen Flow Rate (L/min) 2 Oxygen Delivery Method Room Air Weight: 71.8 kg Body Mass Index (BMI) 26.6 Finger Stick Blood Glucose 181 Intake and Output for Last 24 Hours 10/16/18 10/17/18 10/18/18 23:59 23:59 23:59 Intake Total 265 / 265 1040 / 1040 Output Total 5030 / 5030 325 / 325 Balance -4765 / -4765 715 / 715 Microbiology Past 72 Hours 10/16/18 17:50 Influenza Types A,B Direct FA (TIMMY) - Final Mucosa - Nose Laboratory Tests Past 24 Hrs 10/17/18 10/18/18 10/18/18 15:05 04:15 04:15 WBC 8.3 RBC 3.04 L Hgb 9.6 L Hct 30.1 L MCV 99.0 MCH 31.6 MCHC 31.9 L RDW 17.7 H RDW Differential 59.9 H Plt Count 143 L MPV 9.7 Immature Gran % (Auto) 0.500 Neut % (Auto) 59.3 Lymph % (Auto) 29.0 [place] % (Auto) 9.5 Eos % (Auto) 1.6 Baso % (Auto) 0.1 Absolute Neuts (auto) 4.9 Absolute Lymphs (auto) 2.41 Total Counted Not Reportable Sodium 137 135 L Potassium 4.4 4.6 Chloride 100 95 L Carbon Dioxide 26.0 28.0 Anion Gap 11 12 BUN 23 H 33 H Creatinine 5.12 H 6.18 H Estim Creat Clear Calc 11.86 9.82 Est GFR (MDRD) Af Amer 12 L 9 L Est GFR (MDRD) Non-Af 10 L 8 L BUN/Creatinine Ratio 4.5 L 5.3 L Glucose 115 H 82 Calcium 8.7 8.9 POC Glucose 10/18/18 10/17/18 10/17/18 06:11 21:38 17:23 POC Glucose 115 H 164 H 115 H 10/17/18 10/17/18 14:41 10:30 POC Glucose 110 102 Discharge Diet: Renal Diet Discharge Activity: Return to Normal Activity, May Not Drive - until cleared by neurology. Call your doctor if you observe: - - unresponsiveness. Home Medications: Medications to take at Discharge Duloxetine Hcl [Cymbalta] 120 mg PO DAILY 10/01/16 Hydroxychloroquine [Plaquenil] 200 mg PO BIDCM 10/01/16 Atorvastatin Calcium [Lipitor] 20 mg PO QHS 01/20/18 Pregabalin [Lyrica] 75 mg PO BID 08/12/18 Sevelamer Carbonate [Renvela] 1,600 mg PO TIDCM 08/12/18 Ergocalciferol (Vitamin D2) [Drisdol] 50,000 unit PO QMONTH 08/15/18 Baclofen 10 mg PO TID PRN PRN 09/09/18 Dextran 70/Hypromellose [Nature's Tears Eye Drops] 1 drop OP QHS 09/09/18 Famotidine 10 mg PO DAILY 09/09/18 Fluticasone 0.05% [Flonase Nasal [place]] 2 spray NASAL BID 09/09/18 Metoprolol Tartrate [Lopressor (beta pippa)] 25 mg PO BID 09/09/18 Prednisone 5 mg PO DAILY 09/09/18 Dextroamphetamine/Amphetamine [Adderall 15 mg Tablet] 15 mg PO BID 10/10/18 Loperamide HCl [Loperamide] 4 mg PO BID PRN PRN 10/10/18 Lorazepam [Ativan] 1 mg PO BID PRN PRN 10/10/18 Acetaminophen [Extra Strength Non-Aspirin] 500 mg PO Q6H PRN PRN 10/16/18 Acyclovir [Zovirax] 400 mg PO TID PRN PRN 10/16/18 Calcitriol 0.5 mcg PO DAILY 10/16/18 CycloSPORINE Ophthalmic [Restasis Ophthalmic] 1 drop EACH EYE BID 10/16/18 Dextroamphetamine Sulfate [Dexedrine] 20 mg PO DAILY 10/16/18 Folic Acid/Vit B Complex and C [Renal-Lobo Tablet] 0.8 mg PO DAILY 10/16/18 Lidocaine/Prilocaine [Lidocaine-Prilocaine Cream] 1 applic TP MOWEFR 10/16/18 Montelukast [Singulair] 10 mg PO DAILY 10/16/18 Ondansetron HCl [Zofran] 4 mg PO Q8H PRN PRN 10/16/18 Primary Care Physician: Mitchell Bowen Chi, MD [Primary Care Provider] - Within 2 Weeks Please Follow Up With: Dev Marie MD - Neurology for confusion. Evaluate for seizure disorder. When: 2-4 weeks. Please Follow Up With: Endocrinology. When: 2-4 weeks. [place] [id number] . [facility] [phone] Disposition: Home Minutes spent on discharge:: 36 Patient Condition:: Good Medical Necessity - Tobacco Use Smoking Status: Never smoker Meaningful Use Info Meaningful Use Diagnoses (Choose all that apply): None applicable Code Visit Inpatient E&M: 70933 Disch Hosp
--- NOTE | 2018-10-18 09:43 | DS.PCM_ITS ---
Discharge Date and Diagnosis - Problem List Patient Problems: Active and Suspected Problems (Last Reviewed 08/14/18 @ 10:39 by Cesar Sheth MD) Hyperkalemia (Acute) Encephalopathy acute (Acute) Date of Admission: 10/16/18 Date of Discharge: 10/18/18 - Primary Discharge Diagnosis Active and Suspected Problems (Last Reviewed 08/14/18 @ 10:39 by Cesar Sheth MD) Hyperkalemia (Acute) Encephalopathy acute (Acute) - Secondary Discharge Diagnosis Chronic Problems (Last Reviewed 08/14/18 @ 10:39 by Cesar Sheth MD) Nonrheumatic mitral (valve) insufficiency (Chronic) Secondary pulmonary arterial hypertension (Chronic) Non-rheumatic tricuspid valve insufficiency (Chronic) End stage renal disease (Chronic) Chronic anemia (Chronic) Hypertension (Chronic) Narcolepsy (Chronic) Lupus nephritis (Chronic) Status post kidney and liver biopsy (fatty liver) Degenerative disc disease, cervical (Chronic) Cervical spondylosis (Chronic) Diabetes mellitus, type II (Chronic) SLE (systemic lupus erythematosus) (Chronic) Hospital Course and Treatment Imaging Results: Clinical Impression(s) from Imaging Studies Brain CT 10/16/18 17:34 IMPRESSION: 1. No acute findings. 2. Right ethmoid polyp or retention cyst. Electronically Signed: Samira Warner MD at 18:36 EST Tel , Service support , Chest X-Ray 10/16/18 18:00 IMPRESSION: No acute process. Electronically Signed: Samira Warner MD at 19:05 EST Tel , Service support , Ross Esparza MD: [facility] Arline Ambriz, DO: Nephrology. Operations: None Procedures: Dialysis Summary of Care Provided: The patient is a 48 year old F presents with confusion and unresponsiveness. Patient had a head CT that was negative. Patient is a labs were not uremia. Patient did have elevated blood pressure into the 200s. Patient later did endorse that she does not take her blood pressure medications on her dialysis days. Patient did receive dialysis on the day and kept perseverating and saying yesterday. Today, the patient is better back to her baseline. And is unclear what the etiology of this patient's confusion is. It has been documented that this is due to polypharmacy and narcolepsy, hypoglycemia. Therefore is not been any kind at unifying diagnosis. Additionally, patient denies any drug use and denies any synthetic drugs as drug screens have been negative here. One further thing I feel is important to be evaluated is for underlying seizure disorder. Patient denies any seizure disorder but has not had a complete workup from what I can gather looking at the data. Patient has had an MRI which is negative but I do not see any results of an EEG. I did advise the patient to follow-up with neurology and given the concern for the confusion and needing to rule out a seizure I advised patient not until evaluated and cleared by neurology. Patient is expressed understanding to this. Patient was advised by Dr. Ambriz to take her blood pressure medications on her dialysis days. Did not recommend any additional medications at this time as patient has had issues with hypotension in the past. Patient's blood sugars remained stable here and she did not have any evidence of hypoglycemia. Patient stated that before she started feeling ill, she checked her blood sugars in the 260 range. Patient has had a history of elevatus C-peptide as well as pro-insulin. Patient has been evaluated for tumors which were negative but the patient recommend follow-up with endocrinology for evaluation for insulinoma. [] Patient Problems: Active and Suspected Problems (Last Reviewed 08/14/18 @ 10:39 by Cesar Sheth MD) Hyperkalemia (Acute) Encephalopathy acute (Acute) - Physical Exam General: Alert, No apparent distress HEENT: Atraumatic, Normocephalic Oral: Moist Mucosa, No Gingival or Mucosal Lesions/ Ulcerations Neck: No Nodes, Thyroid Normal Size and Texture Lungs: Clear to auscultation, Normal air movement, No rhonchi, No wheeze Cardiovascular: Regular rate, Regular Rhythm, Normal S1, Normal S2, No murmurs Abdomen: Bowel Sounds Present, Soft, Non Tender, Non-Distended, No Hepato- splenomegaly Extremities: No edema, No Calf Tenderness Psych/Mental Status: Normal Affect, Appropriate Vital Signs Temp Pulse Resp BP Pulse Ox 37.1 C 104 H 18 151/119 H 100 10/18/18 08:00 10/18/18 09:00 10/18/18 09:00 10/18/18 09:00 10/18/18 09:00 Oxygen Flow Rate (L/min) 2 Oxygen Delivery Method Room Air Weight: 71.8 kg Body Mass Index (BMI) 26.6 Finger Stick Blood Glucose 181 Intake and Output for Last 24 Hours 10/16/18 10/17/18 10/18/18 23:59 23:59 23:59 Intake Total 265 / 265 1040 / 1040 Output Total 5030 / 5030 325 / 325 Balance -4765 / -4765 715 / 715 Microbiology Past 72 Hours 10/16/18 17:50 Influenza Types A,B Direct FA (TIMMY) - Final Mucosa - Nose Laboratory Tests Past 24 Hrs 10/17/18 10/18/18 10/18/18 15:05 04:15 04:15 WBC 8.3 RBC 3.04 L Hgb 9.6 L Hct 30.1 L MCV 99.0 MCH 31.6 MCHC 31.9 L RDW 17.7 H RDW Differential 59.9 H Plt Count 143 L MPV 9.7 Immature Gran % (Auto) 0.500 Neut % (Auto) 59.3 Lymph % (Auto) 29.0 [place] % (Auto) 9.5 Eos % (Auto) 1.6 Baso % (Auto) 0.1 Absolute Neuts (auto) 4.9 Absolute Lymphs (auto) 2.41 Total Counted Not Reportable Sodium 137 135 L Potassium 4.4 4.6 Chloride 100 95 L Carbon Dioxide 26.0 28.0 Anion Gap 11 12 BUN 23 H 33 H Creatinine 5.12 H 6.18 H Estim Creat Clear Calc 11.86 9.82 Est GFR (MDRD) Af Amer 12 L 9 L Est GFR (MDRD) Non-Af 10 L 8 L BUN/Creatinine Ratio 4.5 L 5.3 L Glucose 115 H 82 Calcium 8.7 8.9 POC Glucose 10/18/18 10/17/18 10/17/18 06:11 21:38 17:23 POC Glucose 115 H 164 H 115 H 10/17/18 10/17/18 14:41 10:30 POC Glucose 110 102 Discharge Diet: Renal Diet Discharge Activity: Return to Normal Activity, May Not Drive - until cleared by neurology. Call your doctor if you observe: - - unresponsiveness. Home Medications: Medications to take at Discharge Duloxetine Hcl [Cymbalta] 120 mg PO DAILY 10/01/16 Hydroxychloroquine [Plaquenil] 200 mg PO BIDCM 10/01/16 Atorvastatin Calcium [Lipitor] 20 mg PO QHS 01/20/18 Pregabalin [Lyrica] 75 mg PO BID 08/12/18 Sevelamer Carbonate [Renvela] 1,600 mg PO TIDCM 08/12/18 Ergocalciferol (Vitamin D2) [Drisdol] 50,000 unit PO QMONTH 08/15/18 Baclofen 10 mg PO TID PRN PRN 09/09/18 Dextran 70/Hypromellose [Nature's Tears Eye Drops] 1 drop OP QHS 09/09/18 Famotidine 10 mg PO DAILY 09/09/18 Fluticasone 0.05% [Flonase Nasal [place]] 2 spray NASAL BID 09/09/18 Metoprolol Tartrate [Lopressor (beta pippa)] 25 mg PO BID 09/09/18 Prednisone 5 mg PO DAILY 09/09/18 Dextroamphetamine/Amphetamine [Adderall 15 mg Tablet] 15 mg PO BID 10/10/18 Loperamide HCl [Loperamide] 4 mg PO BID PRN PRN 10/10/18 Lorazepam [Ativan] 1 mg PO BID PRN PRN 10/10/18 Acetaminophen [Extra Strength Non-Aspirin] 500 mg PO Q6H PRN PRN 10/16/18 Acyclovir [Zovirax] 400 mg PO TID PRN PRN 10/16/18 Calcitriol 0.5 mcg PO DAILY 10/16/18 CycloSPORINE Ophthalmic [Restasis Ophthalmic] 1 drop EACH EYE BID 10/16/18 Dextroamphetamine Sulfate [Dexedrine] 20 mg PO DAILY 10/16/18 Folic Acid/Vit B Complex and C [Renal-Lobo Tablet] 0.8 mg PO DAILY 10/16/18 Lidocaine/Prilocaine [Lidocaine-Prilocaine Cream] 1 applic TP MOWEFR 10/16/18 Montelukast [Singulair] 10 mg PO DAILY 10/16/18 Ondansetron HCl [Zofran] 4 mg PO Q8H PRN PRN 10/16/18 Primary Care Physician: Mitchell Bowen Chi, MD [Primary Care Provider] - Within 2 Weeks Please Follow Up With: Dev Marie MD - Neurology for confusion. Evaluate for seizure disorder. When: 2-4 weeks. Please Follow Up With: Endocrinology. When: 2-4 weeks. [place] [id number] . [facility] [phone] Disposition: Home Minutes spent on discharge:: 36 Patient Condition:: Good Medical Necessity - Tobacco Use Smoking Status: Never smoker Meaningful Use Info Meaningful Use Diagnoses (Choose all that apply): None applicable Code Visit Inpatient E&M: 06148 Disch Hosp
--- NOTE | 2018-10-18 09:57 | CASEMGMT ---
ROSHAN ALCARAZ Note Plan is for dc home today. Call to [facility] and [facility] to notify. DC Summary, Instructions faxed to [facility]. Ramón BORRERO RN AC
--- NOTE | 2018-10-20 16:03 | CASEMGMT ---
RN CM Discharge Follow-up Phone Call: MARLONLinda: Walter Strata: 4 Call Date: 10/20/18 Discharge Date: 10/18/18 Time of Call: 1600 Duration: 0 ? Admitting Diagnosis: Hyperkalemia This RN CM attempted to contact pt via phone. No answer received on either pt's home or cell phone numbers. Voicemail left on pt's cell phone requesting a call back. Abril Jack RN
== END 2018-10-18 11:36 | disposition home or self-care (01) | DRG 70 ==
LOC: ED 17:45 → ICU 19:55
PROVIDERS: Internal Medicine Critical Care Medicine; Admitting Provider Student in an Organized Health Care Education/Training Program; Emergency Provider Emergency Medicine; Family Provider Family Medicine Geriatric Medicine; PCP Family Medicine Geriatric Medicine
DX: G93.41 Metabolic encephalopathy (principal); N18.6 End stage renal disease; I12.0 Hypertensive chronic kidney disease with stage 5 chronic kidney disease or end stage renal disease; E11.22 Type 2 diabetes mellitus with diabetic chronic kidney disease; M32.9 Systemic lupus erythematosus, unspecified; E87.5 Hyperkalemia; I16.0 Hypertensive urgency; E87.70 Fluid overload, unspecified; D64.9 Anemia, unspecified; I27.20 Pulmonary hypertension, unspecified; G47.419 Narcolepsy without cataplexy; F41.9 Anxiety disorder, unspecified; I34.0 Nonrheumatic mitral (valve) insufficiency; M50.30 Other cervical disc degeneration, unspecified cervical region; I36.1 Nonrheumatic tricuspid (valve) insufficiency; M47.892 Other spondylosis, cervical region; Z99.2 Dependence on renal dialysis; Z79.899 Other long term (current) drug therapy
CPT/HCPCS: 36600; 51702; 70450; 71045; 80048; 80307; 80320; 80329; 81001; 82009; 82140; 82803; 82962; 83605; 84484; 85025; 87804; 90937; 93005; 94640; 99285; J7040; A4216; G0257; G0480

== ENCOUNTER → 2018-11-11 07:32 | Outpatient (CLI) | payer MEDICARE, MEDICAID, SELFPAY ==
[2018-10-16 20:23] VITALS: BMI 26.6
[2018-11-08 12:49] VITALS: BMI 26.6
--- NOTE | 2018-11-14 10:52 | EEG ---
- Electroencephalogram Date of service 11/11/18 This is an 18 channel electroencephalogram performed utilizing the International 10-20 electrode placement protocol on this 88-year-old female with a history of altered mental status. EKG references, photic stimulation and hyperventilation were also performed. Background activity is 8 Hz symmetrically in the posterior leads which attenuates with eye-opening. Hyperventilation is performed for 2 minutes with good effort with no lateralizing or epileptiform changes. Photic stimulation generates a normal symmetric driving response in the posterior leads. Awake and sleep are both recorded. EKG reference lead to a normal sinus rhythm throughout the recording. Impression: Normal awake and asleep electroencephalogram.
== END ==
PROVIDERS: Family Provider Family Medicine Geriatric Medicine; PCP Family Medicine Geriatric Medicine; Referring Provider Family Medicine Geriatric Medicine; Visit Provider Family Medicine Geriatric Medicine
DX: G40.909 Epilepsy, unspecified, not intractable, without status epilepticus (principal)
CPT/HCPCS: 95819

== ENCOUNTER 2018-11-17 15:31 | Inpatient (IN) | payer MEDICARE, MEDICAID, SELFPAY ==
[2018-11-08 12:49] VITALS: BMI 26.6
[2018-11-17] VITALS (14 sets, daily range): BP systolic 143–259; BP diastolic 67–116; PULSE 84–102; RESP 12–16; TEMP 37; O2SAT 95–100; BMI 29.0
[2018-11-17 15:41] LABS: Bedside Glucose 131 mg/dL (70-110)
--- NOTE | 2018-11-17 15:43 | CT_ITS ---
STUDY: CT BRAIN WITHOUT CONTRAST REASON FOR EXAM: Female, 48 years old. Altered mental status RADIATION DOSAGE (If Supplied By Facility): CTDIvol = ( 44.99 ) mGy, DLP = ( 796.11 ) mGycm TECHNIQUE: Transaxial CT imaging of the brain was performed without administration of intravenous contrast material. Individualized dose optimization techniques were used for this CT. COMPARISON: None. FINDINGS: Normal soft tissue structures. Normal calvarium. Normal size ventricles and extra-axial spaces for the patient's age. Normal white matter tracts of the cerebral hemispheres. Normal basal ganglia and thalami. Normal brainstem. Normal cerebellum. There is no intracranial hemorrhage. There are no findings of an acute ischemic infarction. Stable right ethmoid polyp or retention cyst. CT/Brain/Head without Contrast IMPRESSION: Normal unenhanced CT scan of the brain. Stable right ethmoid polyp or retention cyst. Electronically Signed: Myles Vieira DO at 16:51 EST Tel , Service support ,
--- NOTE | 2018-11-17 15:44 | EKG12_ITS ---
Test Reason : ALTERED LOC Blood Pressure : / mmHG Vent. Rate : 091 BPM Atrial Rate : 091 BPM P-R Int : 146 ms QRS Dur : 090 ms QT Int : 400 ms P-R-T Axes : 063 049 079 degrees QTc Int : 492 ms Normal sinus rhythm Nonspecific ST and T wave abnormality Prolonged QT Abnormal ECG Confirmed by GARO GARCIA, KERON ([id number]), desk editor CESAR SIMEON ([id number]) on 11/22/2018 9:11:17 AM Referred By: JESUS Confirmed By:KERON WYMAN MD
--- NOTE | 2018-11-17 15:50 | RAD_ITS ---
STUDY: X-RAY CHEST REASON FOR EXAM: Female, 48 years old. Hypertension. Diabetic. The patient is unconscious. TECHNIQUE: Single AP portable view of the chest. COMPARISON: Comparison is made with prior examination dated October 16, 2018. FINDINGS: A right-sided double-lumen catheter seen with the tip in the proximal portion of the superior vena cava. EKG electrodes are seen. The lungs are clear and expanded. There is no demonstrated pleural abnormality. There is borderline cardiomegaly. Normal mediastinum and malorie. Normal visualized pulmonary arteries. Normal visualized aortic arch and descending thoracic aorta. Normal visualized thoracic spine. Normal visualized ribs, clavicles, and shoulders. There is no demonstrated abnormality of the visualized soft tissue structures of the upper abdomen. RAD/Chest 1 View (Portable) IMPRESSION: No acute abnormality is present. Electronically Signed: Jonathan Garcia, at 16:03 EST , Service support ,
[2018-11-17] MEDS: Naloxone 2 MG/2 ML Syringe NS (16:00)
--- NOTE | 2018-11-17 16:05 | ED.VISSUMM ---
- ER Visit Summary Date of Service: 11/17/18 Chief Complaint: Altered mental status History of Present Illness: The patient is a 48 F who presents with altered mental status today. Patient was brought to the emergency department by her brother who left and did not provide any further information. Patient is nonverbal and is a poor historian. Patient is able to nod her head to yes/no questions. Patient appears to have a recent dialysis fistula placed in her right arm. Physical Examination: Vital signs showed elevated blood pressure of 212/115. The remaining vital signs are normal. Patient is responsive to verbal stimuli by shaking her head to yes/no questions. Oral mucosa is pink and moist. Patient has a good gag reflex. Neck is supple. Trachea is midline. There is no JVD noted. Heart was regular rate and rhythm. Lungs are clear and equal bilaterally. Abdomen is soft and nontender. Patient does move her extremities spontaneously. There are no focal neuro deficits noted. Test Results: CBC shows an anemia with a hemoglobin 9.1 and hematocrit 29.8. This is stable compared to previous results. Basic metabolic profile shows a BUN of 44 and creatinine of 7.77. This is consistent with her chronic kidney disease. Urinalysis does not show any evidence of urinary tract infection. EKG showed normal sinus rhythm with a rate of 91. There are no acute ST or T wave changes. CT scan of the brain does not show any acute intracranial abnormality. Chest x-ray does not show any acute cardiopulmonary process. Emergency Department Course and Treatment: Patient was given labetalol for her blood pressure. Patient now opens her eyes to verbal stimuli. Patient's blood pressure is still 228 systolic. Patient was given a repeat dose of labetalol. Case was discussed with the hospitalist. He recommended starting the patient on a Cardene drip. Patient will be admitted to the intensive care unit. Disposition: Admit to hospital Impression: 1. Altered mental status 2. Uncontrolled hypertension This note was generated with [employer] dictation software. It may contain incorrect words, spelling, and punctuation that were not noted in review of the chart prior to signing ED Disposition - Plan for ED Patient: Disposition: Acute Care Hospital [facility] Diagnosis: Altered mental status, Uncontrolled hypertension Referrals: Mitchell Bowen Chi, MD [Primary Care Provider] -
[2018-11-17 16:20] LABS: Absolute Lymphocyte Count 0.94 X10^3/ul (0.83-4.51); Absolute Neutrophil Count 6.3 X10^3/uL (2.0-7.7); Basophil# 0.02 X10^3/uL; Basophil% 0.3 % (0-1); Eosinophil# 0.05 X10^3/uL; Eosinophils% 0.6 % (0-5); Hematocrit 29.8 % (37-47); Hemoglobin 9.1 g/dl (12.0-15.0); Lymphocyte # 0.94 X10^3/ul (4.0); Lymphocyte % 12.2 % (19-41); Mean Corp Hgb Conc 30.5 g/gl (32-36); Mean Corpuscular Volume 104.9 fL (81-99); Mean Platelet Vol. 9.5 fl (6.2-12.0); Monocyte% 5.2 % (0-10); Neutrophil # 6.26 X10^3/uL (2.7-7.7); Neutrophil % 81.2 % (47-70); Platelet Count 268 K/mm3 (150-450); RBC Distribution Width CV 19.2 % (11.6-14.6); RBC Distribution Width SD 71.2 fl (35.1-43.9); Red Blood Count 2.84 M/mm3 (4.2-5.4); White Blood Count 7.7 K/mm3 (4.4-11.0)
[2018-11-17 16:21] LABS: Differential Indicated SCAN CRITERIA MET; POSITIVE COUNT NO; POSITIVE DIFFERENTIAL NO; POSITIVE MORPHOLOGY YES
[2018-11-17 16:23] LABS: Prothrombin Time (Protime)PT. 13.4 SECONDS (11.7-14.9)
[2018-11-17 16:24] LABS: Partial Thromboplast Time 27.9 Seconds (24.1-36.2)
--- NOTE | 2018-11-17 16:38 | ED.DCSUM_ITS ---
- ER Visit Summary Date of Service: 11/17/18 Chief Complaint: Altered mental status History of Present Illness: The patient is a 48 F who presents with altered mental status today. Patient was brought to the emergency department by her brother who left and did not provide any further information. Patient is nonverbal and is a poor historian. Patient is able to nod her head to yes/no questions. Patient appears to have a recent dialysis fistula placed in her right arm. Physical Examination: Vital signs showed elevated blood pressure of 212/115. The remaining vital signs are normal. Patient is responsive to verbal stimuli by shaking her head to yes/no questions. Oral mucosa is pink and moist. Patient has a good gag reflex. Neck is supple. Trachea is midline. There is no JVD noted. Heart was regular rate and rhythm. Lungs are clear and equal bilaterally. Abdomen is soft and nontender. Patient does move her extremities spontaneously. There are no focal neuro deficits noted. Test Results: CBC shows an anemia with a hemoglobin 9.1 and hematocrit 29.8. This is stable compared to previous results. Basic metabolic profile shows a BUN of 44 and creatinine of 7.77. This is consistent with her chronic kidney disease. Urinalysis does not show any evidence of urinary tract infection. EKG showed normal sinus rhythm with a rate of 91. There are no acute ST or T wave changes. CT scan of the brain does not show any acute intracranial abnormality. Chest x-ray does not show any acute cardiopulmonary process. Emergency Department Course and Treatment: Patient was given labetalol for her blood pressure. Patient now opens her eyes to verbal stimuli. Patient's blood pressure is still 228 systolic. Patient was given a repeat dose of labetalol. Case was discussed with the hospitalist. He recommended starting the patient on a Cardene drip. Patient will be admitted to the intensive care unit. Disposition: Admit to hospital Impression: 1. Altered mental status 2. Uncontrolled hypertension This note was generated with [employer] dictation software. It may contain incorrect words, spelling, and punctuation that were not noted in review of the chart prior to signing ED Disposition - Plan for ED Patient: Disposition: Acute Care Hospital [facility] Diagnosis: Altered mental status, Uncontrolled hypertension Referrals: Mitchell Bowen Chi, MD [Primary Care Provider] -
[2018-11-17 16:41] LABS: ALB/GLOB Ratio 0.7 RATIO (0.9-2.4); AST(SGOT) 25 U/L (15-37); Alanine Aminotransfer ALT/SGPT 10 U/L (13-56); Albumin, Serum 3.2 g/dL (3.2-5.0); Alkaline Phosphatase 90 U/L (45-117); Anion Gap 10 (5-15); BUN 44 mg/dL (7-18); BUN/Creat Ratio 5.7 RATIO (10-20); Calcium,Total 9.1 mg/dL (8.5-10.1); Chloride 105 mmol/L (98-107); Creatinine, Serum 7.77 mg/dL (0.55-1.02); EST Glomerular Filtration Rate 6 mL/min (>60); Est Glom Filt Rate - Afr Amer 7 mL/min (>60); Estimated Creatinine Clearance 7.16 ml/min; Globulin 4.6 g/dL (2.2-4.2); Glucose 156 mg/dL (74-106); Potassium 4.4 mmol/L (3.5-5.1); Protein, Total 7.8 g/dL (6.4-8.2); Sodium Level 140 mmol/L (136-145)
[2018-11-17 16:43] LABS: Anisocytosis 1+; Hypochromasia RARE; Macrocytosis 1+; Platelet Estimate ADEQUATE (ADEQ); Polychromasia RARE
--- NOTE | 2018-11-17 16:44 | ED.RN ---
LAB CALLS WITH CRITICAL RESULT, CREATININE 7.77, DR. LEE AWARE.
[2018-11-17 17:29] LABS: Bacteria 0 SEEN /hpf (None Seen); Mucous, Urine 0 SEEN /hpf (<or=2+); Red Blood Cells-Urine 0 SEEN /hpf (0-5); Squamous Epithelial Cells - UA 0 SEEN /hpf (5-10); White Blood Cells 0 SEEN /hpf (0-5)
[2018-11-17 17:38] LABS: Color, Urine Yellow (Yellow); Glucose, Dipstick 100 mg/dl (Normal); Ketone-Dipstick Negative (Negative); Leukocyte Esterase-Dipstick Negative /ul (Negative); Nitrite-Dipstick Negative (Negative); Occult Blood-Urine 10 /ul (Negative); Protein-Dipstick 100 mg/dl (Negative); Urine Bilirubin Dipstick Negative (Negative); Urine Clarity Clear (Clear); Urine Urobilinogen Normal (Normal)
[2018-11-17 18:43] LABS: Pregnancy, Serum, hCG Quali. NEGATIVE Negative (0-9 Nonpreg)
--- NOTE | 2018-11-17 21:22 | HP.PCM_ITS ---
Problem List (1) Encephalopathy acute Status: Acute (2) Hypertensive urgency, malignant Status: Acute (3) ESRD (end stage renal disease) on dialysis Status: Chronic (4) End stage renal disease Status: Chronic History of Present Illness Date of Admission: 11/17/18 Chief Complaint: altered mental status The patient is a 48 year old F with a significant history of narcolepsy; end- stage renal disease; MRSA and C. difficile infection; previous episodes of encephalopathy who presented to the emergency department because of altered mental status. At the time of my examination patient obtunded so history was taken from emergency department. Per Emergency department patient's brother brought the patient to the emergency department and left. Emergency department doctor initially patient was responding only to sternal rub evaluate as she was responding to verbal stimuli. At the time of my examination patient was nodding inappropriately to all verbal conversations. Her blood pressure was noted to be severely elevated for which patient was given labetalol IV and later also started on a Cardene drip and transferred to intensive care unit. Past Medical History Past Medical History (Chronic Problems): Chronic Problems (Last Reviewed 11/17/18 @ 23:29 by Garcia Mead MD) ESRD (end stage renal disease) on dialysis (Chronic) Chronic diarrhea (Chronic) Nonrheumatic mitral (valve) insufficiency (Chronic) Secondary pulmonary arterial hypertension (Chronic) Non-rheumatic tricuspid valve insufficiency (Chronic) End stage renal disease (Chronic) Chronic anemia (Chronic) Hypertension (Chronic) Narcolepsy (Chronic) Lupus nephritis (Chronic) Status post kidney and liver biopsy (fatty liver) Degenerative disc disease, cervical (Chronic) Cervical spondylosis (Chronic) Diabetes mellitus, type II (Chronic) SLE (systemic lupus erythematosus) (Chronic) Medical History: Medical History (Last Reviewed 11/17/18 @ 23:29 by Garcia Mead MD) Chronic diarrhea (Chronic) K52.9 Nonrheumatic mitral (valve) insufficiency (Chronic) I34.0 Secondary pulmonary arterial hypertension (Chronic) I27.21 Non-rheumatic tricuspid valve insufficiency (Chronic) I36.1 End stage renal disease (Chronic) N18.6 Chronic anemia (Chronic) D64.9 Hypertension (Chronic) I10 Narcolepsy (Chronic) G47.419 Lupus nephritis (Chronic) M32.14 Status post kidney and liver biopsy (fatty liver) Degenerative disc disease, cervical (Chronic) M50.30 Cervical spondylosis (Chronic) M47.812 Diabetes mellitus, type II (Chronic) E11.9 SLE (systemic lupus erythematosus) (Chronic) M32.9 Allergies LONG Inhibitors Allergy (Verified 11/08/18 12:43) Angioedema adhesive Allergy (Verified 11/08/18 12:43) Rash diphenhydramine [From Benadryl] Allergy (Verified 11/08/18 12:43) Unknown lisinopril Allergy (Verified 11/08/18 12:43) Angioedema Sulfa (Sulfonamide Antibiotics) Allergy (Verified 11/08/18 12:43) Rash sulfamethoxazole [From Bactrim] Allergy (Verified 11/08/18 12:43) Rash trimethoprim [From Bactrim] Allergy (Verified 11/08/18 12:43) Rash Angioderm Adverse Reaction (Unknown, Uncoded 10/16/18 17:14) Unknown Home Medications: Ambulatory Orders Medication Instructions Recorded Duloxetine Hcl [Cymbalta] 120 mg PO DAILY 10/01/16 Hydroxychloroquine [Plaquenil] 200 mg PO BIDCM 10/01/16 Atorvastatin Calcium [Lipitor] 20 mg PO QHS 01/20/18 Pregabalin [Lyrica] 75 mg PO BID 08/12/18 Sevelamer Carbonate [Renvela] 1,600 mg PO TIDCM 08/12/18 Fluticasone 0.05% [Flonase Nasal 2 spray NASAL DAILY 09/09/18 [place]] Metoprolol Tartrate [Lopressor 25 mg PO BID 09/09/18 (beta pippa)] Prednisone 5 mg PO DAILY 09/09/18 Lorazepam [Ativan] 1 mg PO DAILY PRN PRN 10/10/18 Cevimeline HCl 30 mg PO BID 11/17/18 Clindamycin Phos/Benzoyl Perox 1 applic TP BID 11/17/18 [Clinda-Benzoyl Perox 1-5% Pump] Mirtazapine 7.5 mg PO QHS 11/17/18 Ranitidine HCl 150 mg PO DAILY 11/17/18 Sucroferric Oxyhydroxide [Velphoro] 500 mg PO TIDCM 11/17/18 Surgical History: Surgical History (Last Reviewed 11/17/18 @ 23:29 by Garcia Mead MD) History of esophagogastroduodenoscopy (EGD) Z98.890 Presence of surgically created arteriovenous shunt for hemodialysis Onset Date: ~11/2017 Z99.2 S/P colonoscopy Z98.890 S/P lymph node biopsy Z98.890 S/P nasal polypectomy Z98.890 Status post carpal tunnel release Z98.890 Status post insertion of dialysis catheter Z95.828, Z99.2 Status post total hip replacement, bilateral Z96.643 port removed Surgical History: - - failed AVF left arm, AVF right arm Lives: - - Patient is obtunded; unable to determine. Smoking Status: Never smoker - *Family History Maternal Family History: Family History (Last Reviewed 11/17/18 @ 23:29 by Garcia Mead MD) Mother Hypertension Kidney disease ALS (amyotrophic lateral sclerosis) Father Heart disease Hypertension Kidney disease Diabetes History Items: Diabetes, High Cholesterol, Heart Disease, Hypertension, Renal Disease, - Paternal Family History: Family History (Last Reviewed 11/17/18 @ 23:29 by Garcia Mead MD) Mother Hypertension Kidney disease ALS (amyotrophic lateral sclerosis) Father Heart disease Hypertension Kidney disease Diabetes History Items: Diabetes, High Cholesterol, Heart Disease, Hypertension, Renal Disease Sibling Family History: Family History (Last Reviewed 11/17/18 @ 23:29 by Garcia Mead MD) Mother Hypertension Kidney disease ALS (amyotrophic lateral sclerosis) Father Heart disease Hypertension Kidney disease Diabetes History Items: Diabetes Review of Systems Unable to obtain accurate/complete ROS d/t: Obtundation VTE Information - Inpt Only VTE Present on Admission: No VTE Mechan Device Prophylaxis: None VTE Pharm Prophylaxis ordered?: Yes Patient Problems: Active and Suspected Problems (Last Reviewed 11/17/18 @ 23:29 by Garcia Mead MD) Altered mental status (Acute) Uncontrolled hypertension (Acute) Hypertensive urgency, malignant (Acute) - Physical Exam General: - - Obtunded HEENT: Atraumatic, Normocephalic Neck: Supple, Trachea Midline Lungs: Clear to auscultation, Normal air movement Cardiovascular: Regular rate, No murmurs Abdomen: Bowel Sounds Present, Soft, Non Tender Extremities: No edema, Capillary Refill Less than 3 Seconds Skin: No rashes, No breakdown, Incision - On the right medial arm; incision well approximated with few sutures and with valenzuela pus; indurated skin; slighltly warm Musculoskeletal: No Muscle Wasting Neurological: Cranial nerves II-XII grossly intact Psych/Mental Status: Normal Affect, Appropriate Vital Signs Temp Pulse Resp BP Pulse Ox 98.6 F 91 14 228/80 H 100 11/17/18 15:32 11/17/18 21:00 11/17/18 21:00 11/17/18 21:00 11/17/18 21:00 Oxygen Flow Rate (L/min) 2 Oxygen Delivery Method Nasal Cannula Weight: 72 kg Body Mass Index (BMI) 29.0 Finger Stick Blood Glucose 131 Laboratory Tests Past 24 Hrs 11/17/18 11/17/18 11/17/18 15:30 15:30 15:45 WBC 7.7 RBC 2.84 L Hgb 9.1 L Hct 29.8 L MCV 104.9 H MCH 32.0 MCHC 30.5 L RDW 19.2 H RDW Differential 71.2 H Plt Count 268 MPV 9.5 Immature Gran % (Auto) 0.500 Neut % (Auto) 81.2 H Lymph % (Auto) 12.2 L [place] % (Auto) 5.2 Eos % (Auto) 0.6 Baso % (Auto) 0.3 Absolute Neuts (auto) 6.3 Absolute Lymphs (auto) 0.94 Total Counted Not Reportable Platelet Estimate ADEQUATE Polychromasia RARE Hypochromasia RARE Anisocytosis 1+ Macrocytosis 1+ PT INR APTT Sodium Potassium Chloride Carbon Dioxide Anion Gap BUN Creatinine Estim Creat Clear Calc Est GFR (MDRD) Af Amer Est GFR (MDRD) Non-Af BUN/Creatinine Ratio Glucose Calcium Total Bilirubin AST ALT Alkaline Phosphatase Troponin I Total Protein Albumin Globulin Albumin/Globulin Ratio Serum , Qual NEGATIVE Urine Color Urine Clarity Urine pH Ur Specific [place] Urine Protein Urine Glucose (UA) Urine Ketones Urine Occult Blood Urine Nitrite Urine Bilirubin Urine Urobilinogen Ur Leukocyte Esterase Urine RBC Urine WBC Ur Squamous Epith Cells Urine Bacteria Urine Mucus Ethyl Alcohol 10.0 11/17/18 11/17/18 11/17/18 15:45 15:45 17:25 WBC RBC Hgb Hct MCV MCH MCHC RDW RDW Differential Plt Count MPV Immature Gran % (Auto) Neut % (Auto) Lymph % (Auto) [place] % (Auto) Eos % (Auto) Baso % (Auto) Absolute Neuts (auto) Absolute Lymphs (auto) Total Counted Platelet Estimate Polychromasia Hypochromasia Anisocytosis Macrocytosis PT 13.4 INR 1.0 APTT 27.9 Sodium 140 Potassium 4.4 Chloride 105 Carbon Dioxide 25.0 Anion Gap 10 BUN 44 H Creatinine 7.77 H* Estim Creat Clear Calc 7.16 Est GFR (MDRD) Af Amer 7 L Est GFR (MDRD) Non-Af 6 L BUN/Creatinine Ratio 5.7 L Glucose 156 H Calcium 9.1 Total Bilirubin 0.60 AST 25 ALT 10 L Alkaline Phosphatase 90 Troponin I 0.046 H Total Protein 7.8 Albumin 3.2 Globulin 4.6 H Albumin/Globulin Ratio 0.7 L Serum , Qual Urine Color Yellow Urine Clarity Clear Urine pH 8.0 Ur Specific [place] 1.010 Urine Protein 100 H Urine Glucose (UA) 100 H Urine Ketones Negative Urine Occult Blood 10 H Urine Nitrite Negative Urine Bilirubin Negative Urine Urobilinogen Normal Ur Leukocyte Esterase Negative Urine RBC 0 SEEN Urine WBC 0 SEEN Ur Squamous Epith Cells 0 SEEN Urine Bacteria 0 SEEN Urine Mucus 0 SEEN Ethyl Alcohol POC Glucose 11/17/18 15:36 POC Glucose 131 H Assessment/Plan All Active Problems (Last Reviewed 11/17/18 @ 23:29 by Garcia Mead MD) Altered mental status (Acute) Uncontrolled hypertension (Acute) Hypertensive urgency, malignant (Acute) Hyperkalemia (Acute) Extremity edema (Acute) Encephalopathy acute (Acute) The patient is a 48 year old F with a significant history of narcolepsy; end- stage renal disease; MRSA and C. difficile infection; previous episodes of encephalopathy who presented to the emergency department because of altered mental status; and found to have severely elevated blood pressure and also with a chronic wound on the left side of head. Acute encephalopathy Etiology includes narcolepsy; hypertensive emergency; uremia or other. From recollection of previous visits patient was on a stimulant for narcolepsy. Will start patient on modanifil. At emergency department patient received narcan. Discussed with nursing staff to place an NG for medication administration. Blood cultures and wound culture was taken to the emergency department. Follow. In the meantime will start patient on clindamycin for probable infection of her left arm. From recollection of previous visits patient was on clindamycin for left infection. Hold all sedating medications including Ativan; and Lyrica. Of notes on patient's medication profile is prednisone. We will continue prednisone at this time. Trend CBC and BMP. Hypertensive urgency Differential diagnoses include hypertensive emergency. Her encephalopathy may not be from her elevated blood pressure in which case we will be dealing with hypertensive urgency. So highest systolic blood pressure is 259; and a highest diastolic blood pressure is 98. Will attempt to control her blood pressure with Cardene to titrate to keep systolic blood pressure within 170-180 in the next 24 hours ending 11/18/2017 at 2100. PRN labetalol and hydralazine ordered. We will start her on a home metoprolol titrate p.o. by a G-tube. ESRD Patient is a dialysis patients. We will consult nephrology We will continue sevelamer and sucroferric oxyhydroxide. Diabetes mellitus On presentation and blood glucose was not within goal. However patient has been noted to have hypoglycemia on previous visits. We will check blood glucose every [address] on hypoglycemic protocol. GERD Ranitidine continued Depression Cymbalta on hold since patient is obtunded. DVT prophylaxis Subcutaneous heparin ordered. Code Visit Inpatient E&M: 35574 Init Hosp L3
--- NOTE | 2018-11-17 22:09 | ED.RN ---
REPORT GIVEN TO CLEMENT ISLAS IN ICU.
--- NOTE | 2018-11-17 23:29 | RAD_ITS ---
STUDY: X-RAY CHEST REASON FOR EXAM: Female, 48 years old. Status post central line placement TECHNIQUE: Single AP portable view of the chest. COMPARISON: 11/17/2017 at 1552 hours FINDINGS: Right internal jugular tunneled dialysis catheter extends to the central superior vena cava. No confluent airspace infiltrate. No pleural effusion or pneumothorax. Borderline cardiomegaly, unchanged. Normal mediastinum and malorie. Normal visualized pulmonary arteries. Normal visualized aortic arch and descending thoracic aorta. Normal visualized thoracic spine. Normal visualized ribs, clavicles, and shoulders. There is no demonstrated abnormality of the visualized soft tissue structures of the upper abdomen. RAD/Chest 1 View (Portable) IMPRESSION: No evidence of acute cardiopulmonary disease. Electronically Signed: Chadd Leigh MD at 1:28 EST Tel , Service support ,
--- NOTE | 2018-11-17 23:54 | ED.RN ---
MULTIPLE ATTEMPTS TO OBTAIN CENTRAL LINE ACCESS UNSUCCESSFUL.
[2018-11-18] VITALS (58 sets, daily range): BP systolic 97–195; BP diastolic 49–105; PULSE 90–114; RESP 12–96; TEMP 36.4–37.1; O2SAT 97–100; BMI 28.8; BMI 28.9
--- NOTE | 2018-11-18 00:15 | ED.RN ---
this nurse spoke with dr muñoz about pt bp 128/99 hr 109. pt moving around in bed and moaning. per dr muñoz stop cardene. icu updated on pt
[2018-11-18 01:01] LABS: Bedside Glucose 111 mg/dL (70-110)
[2018-11-18] MEDS: hydrALAZINE 20 MG/ML Vial 5 MG IV ×2 (04:29→09:24)
[2018-11-18] MEDS: 0.9% NaCl Peripheral Flush Adult/Peds IV ×3 (04:30→06:07)
[2018-11-18 04:49] LABS: Absolute Lymphocyte Count 1.57 X10^3/ul (0.83-4.51); Absolute Neutrophil Count 5.4 X10^3/uL (2.0-7.7); Basophil# 0.02 X10^3/uL; Basophil% 0.3 % (0-1); Eosinophil# 0.09 X10^3/uL; Eosinophils% 1.1 % (0-5); Hematocrit 28.2 % (37-47); Hemoglobin 8.7 g/dl (12.0-15.0); Lymphocyte # 1.57 X10^3/ul (4.0); Lymphocyte % 20.1 % (19-41); Mean Corp Hgb Conc 30.9 g/gl (32-36); Mean Corpuscular Hgb 32.6 pg (27.0-32.0); Mean Corpuscular Volume 105.6 fL (81-99); Mean Platelet Vol. 9.5 fl (6.2-12.0); Monocyte# 0.74 X10^3/uL; Monocyte% 9.5 % (0-10); Neutrophil # 5.37 X10^3/uL (2.7-7.7); Neutrophil % 68.5 % (47-70); Platelet Count 273 K/mm3 (150-450); RBC Distribution Width CV 18.7 % (11.6-14.6); Red Blood Count 2.67 M/mm3 (4.2-5.4); White Blood Count 7.8 K/mm3 (4.4-11.0)
[2018-11-18 05:00] LABS: Differential Indicated SCAN CRITERIA MET; POSITIVE COUNT NO; POSITIVE DIFFERENTIAL NO; POSITIVE MORPHOLOGY YES
[2018-11-18 05:21] LABS: Anisocytosis 2+; Differential Comment SCANNED
[2018-11-18 05:35] LABS: Anion Gap 11 (5-15); BUN 49 mg/dL (7-18); BUN/Creat Ratio 5.6 RATIO (10-20); Calcium,Total 8.9 mg/dL (8.5-10.1); Chloride 107 mmol/L (98-107); EST Glomerular Filtration Rate 5 mL/min (>60); Est Glom Filt Rate - Afr Amer 6 mL/min (>60); Estimated Creatinine Clearance 6.03 ml/min; Glucose 87 mg/dL (74-106); Potassium 4.6 mmol/L (3.5-5.1); Sodium Level 144 mmol/L (136-145)
[2018-11-18] MEDS: Heparin Injection (Vial) 5,000 UNIT/ML VIAL 5000 UNIT SC ×3 (05:49→21:32)
--- NOTE | 2018-11-18 06:56 | CON.PCM_ITS ---
Reason for Consult Date of Consultation: 11/18/18 Reason for Consultation: Hypertensive urgency and acute encephalopathy History of Present Illness: The patient is a 48-year-old female, with a history as outlined below, who presented to the emergency department on November 17 in an encephalopathic state. The patient was last admitted to the intensive care unit on October 17, 2018 under similar circumstances. She does have a history of noncompliance with scheduled hemodialysis sessions. However, per the patient's massage therapist, she has not missed any recent hemodialysis sessions. Only very limited history could be obtained from the patient, as she is quite altered in mentation. On presentation to the emergency department, the patient was noted to be afebrile and profoundly hypertensive with a blood pressure of 240/116 mmHg. Laboratory evaluation revealed no evidence of a leukocytosis. The patient was noted to have baseline macrocytic anemia. Coagulation profile was within normal limits. Chemistry profile revealed a creatinine of 7.7. Troponin was mildly increased to 0.046. Serum alcohol level was negative. CT head revealed a stable right ethmoid polyp or retention cyst, without acute intracranial pathology. Plain film chest x-ray revealed no acute cardiopulmonary process. The patient was subsequently started on a Cardene drip and admitted to the medical intensive care unit for ongoing management. Overnight, the patient's Cardene drip was discontinued. She is currently scheduled to receive as needed labetalol and hydralazine. Blood pressure this morning was noted to be 182/87 mmHg. Past Medical History Past Medical History (Chronic Problems): Chronic Problems (Last Reviewed 11/17/18 @ 23:29 by Garcia Mead MD) ESRD (end stage renal disease) on dialysis (Chronic) Chronic diarrhea (Chronic) Nonrheumatic mitral (valve) insufficiency (Chronic) Secondary pulmonary arterial hypertension (Chronic) Non-rheumatic tricuspid valve insufficiency (Chronic) End stage renal disease (Chronic) Chronic anemia (Chronic) Hypertension (Chronic) Narcolepsy (Chronic) Lupus nephritis (Chronic) Status post kidney and liver biopsy (fatty liver) Degenerative disc disease, cervical (Chronic) Cervical spondylosis (Chronic) Diabetes mellitus, type II (Chronic) SLE (systemic lupus erythematosus) (Chronic) Medical History: Medical History (Last Reviewed 11/17/18 @ 23:29 by Garcia Mead MD) Chronic diarrhea (Chronic) K52.9 Nonrheumatic mitral (valve) insufficiency (Chronic) I34.0 Secondary pulmonary arterial hypertension (Chronic) I27.21 Non-rheumatic tricuspid valve insufficiency (Chronic) I36.1 End stage renal disease (Chronic) N18.6 Chronic anemia (Chronic) D64.9 Hypertension (Chronic) I10 Narcolepsy (Chronic) G47.419 Lupus nephritis (Chronic) M32.14 Status post kidney and liver biopsy (fatty liver) Degenerative disc disease, cervical (Chronic) M50.30 Cervical spondylosis (Chronic) M47.812 Diabetes mellitus, type II (Chronic) E11.9 SLE (systemic lupus erythematosus) (Chronic) M32.9 Allergies LONG Inhibitors Allergy (Verified 11/08/18 12:43) Angioedema adhesive Allergy (Verified 11/08/18 12:43) Rash diphenhydramine [From Benadryl] Allergy (Verified 11/08/18 12:43) Unknown lisinopril Allergy (Verified 11/08/18 12:43) Angioedema Sulfa (Sulfonamide Antibiotics) Allergy (Verified 11/08/18 12:43) Rash sulfamethoxazole [From Bactrim] Allergy (Verified 11/08/18 12:43) Rash trimethoprim [From Bactrim] Allergy (Verified 11/08/18 12:43) Rash Angioderm Adverse Reaction (Unknown, Uncoded 10/16/18 17:14) Unknown Home Medications: Ambulatory Orders Medication Instructions Recorded Duloxetine Hcl [Cymbalta] 120 mg PO DAILY 10/01/16 Hydroxychloroquine [Plaquenil] 200 mg PO BIDCM 10/01/16 Atorvastatin Calcium [Lipitor] 20 mg PO QHS 01/20/18 Pregabalin [Lyrica] 75 mg PO BID 08/12/18 Sevelamer Carbonate [Renvela] 1,600 mg PO TIDCM 08/12/18 Fluticasone 0.05% [Flonase Nasal 2 spray NASAL DAILY 09/09/18 [place]] Metoprolol Tartrate [Lopressor 25 mg PO BID 09/09/18 (beta pippa)] Prednisone 5 mg PO DAILY 09/09/18 Lorazepam [Ativan] 1 mg PO DAILY PRN PRN 10/10/18 Cevimeline HCl 30 mg PO BID 11/17/18 Clindamycin Phos/Benzoyl Perox 1 applic TP BID 11/17/18 [Clinda-Benzoyl Perox 1-5% Pump] Mirtazapine 7.5 mg PO QHS 11/17/18 Ranitidine HCl 150 mg PO DAILY 11/17/18 Sucroferric Oxyhydroxide [Velphoro] 500 mg PO TIDCM 11/17/18 Surgical History: Surgical History (Last Reviewed 11/17/18 @ 23:29 by Garcia Mead MD) History of esophagogastroduodenoscopy (EGD) Z98.890 Presence of surgically created arteriovenous shunt for hemodialysis Onset Date: ~11/2017 Z99.2 S/P colonoscopy Z98.890 S/P lymph node biopsy Z98.890 S/P nasal polypectomy Z98.890 Status post carpal tunnel release Z98.890 Status post insertion of dialysis catheter Z95.828, Z99.2 Status post total hip replacement, bilateral Z96.643 port removed Surgical History: - - failed AVF left arm, AVF right arm Lives: - - Patient is obtunded; unable to determine. Smoking Status: Never smoker - *Family History Maternal Family History: Family History (Last Reviewed 11/17/18 @ 23:29 by Garcia Mead MD) Mother Hypertension Kidney disease ALS (amyotrophic lateral sclerosis) Father Heart disease Hypertension Kidney disease Diabetes History Items: Diabetes, High Cholesterol, Heart Disease, Hypertension, Renal Disease, - Paternal Family History: Family History (Last Reviewed 11/17/18 @ 23:29 by Garcia Mead MD) Mother Hypertension Kidney disease ALS (amyotrophic lateral sclerosis) Father Heart disease Hypertension Kidney disease Diabetes History Items: Diabetes, High Cholesterol, Heart Disease, Hypertension, Renal Disease Sibling Family History: Family History (Last Reviewed 11/17/18 @ 23:29 by Garcia Mead MD) Mother Hypertension Kidney disease ALS (amyotrophic lateral sclerosis) Father Heart disease Hypertension Kidney disease Diabetes History Items: Diabetes Review of Systems Unable to obtain accurate/complete ROS d/t: Due to the patient's encephalopathic state Patient Problems: Active and Suspected Problems (Last Reviewed 11/17/18 @ 23:29 by Garcia Mead MD) Altered mental status (Acute) Uncontrolled hypertension (Acute) Hypertensive urgency, malignant (Acute) Objective: The patient's most recent lab work, culture data and imaging studies have all been personally reviewed. Surface echocardiogram from January 2018 revealed evidence of stage I diastolic dysfunction with an ejection fraction of 65%. Right ventricular systolic pressure was estimated to be 31 mmHg at that time. - Physical Exam General: Confused, Lethargic, - - The patient will arouse to verbal stimulation and attempt to answer questions HEENT: Atraumatic, PERRLA, Normocephalic Oral: No Gingival or Mucosal Lesions/ Ulcerations Neck: Supple, No Nodes, Trachea Midline Lungs: No rhonchi, No wheeze, No rales, Diminished, - - Poor inspiratory effort Cardiovascular: Regular rate, Regular Rhythm, Normal S1, Normal S2, No murmurs Abdomen: Bowel Sounds Present, Soft, Non Tender Extremities: No clubbing, No cyanosis Skin: Ulcer/ Wound - RUE Musculoskeletal: No Muscle Wasting Lymphatic: No Cervical, Supraclavicular, or Inguinal Adenopathy Neurological: - - No focal deficits Psych/Mental Status: Flat Affect Vital Signs Temp Pulse Resp BP Pulse Ox 36.4 C L 93 12 182/87 H 100 11/18/18 04:00 11/18/18 06:00 11/18/18 06:00 11/18/18 06:00 11/18/18 06:00 Oxygen Flow Rate (L/min) 2 Oxygen Delivery Method Nasal Cannula Weight: 156 lb 15.506 oz Body Mass Index (BMI) 28.8 Finger Stick Blood Glucose 131 Intake and Output for Last 24 Hours 11/16/18 11/17/18 11/18/18 23:59 23:59 23:59 Intake Total 70 / 70 Balance 70 / 70 Laboratory Tests Past 24 Hrs 11/17/18 11/17/18 11/17/18 15:30 15:30 15:45 WBC 7.7 RBC 2.84 L Hgb 9.1 L Hct 29.8 L MCV 104.9 H MCH 32.0 MCHC 30.5 L RDW 19.2 H RDW Differential 71.2 H Plt Count 268 MPV 9.5 Immature Gran % (Auto) 0.500 Neut % (Auto) 81.2 H Lymph % (Auto) 12.2 L Avery % (Auto) 5.2 Eos % (Auto) 0.6 Baso % (Auto) 0.3 Absolute Neuts (auto) 6.3 Absolute Lymphs (auto) 0.94 Total Counted Not Reportable Differential Comment Platelet Estimate ADEQUATE Polychromasia RARE Hypochromasia RARE Anisocytosis 1+ Macrocytosis 1+ PT INR APTT Sodium Potassium Chloride Carbon Dioxide Anion Gap BUN Creatinine Estim Creat Clear Calc Est GFR (MDRD) Af Amer Est GFR (MDRD) Non-Af BUN/Creatinine Ratio Glucose Calcium Total Bilirubin AST ALT Alkaline Phosphatase Troponin I Total Protein Albumin Globulin Albumin/Globulin Ratio Serum , Qual NEGATIVE Urine Color Urine Clarity Urine pH Ur Specific [place] Urine Protein Urine Glucose (UA) Urine Ketones Urine Occult Blood Urine Nitrite Urine Bilirubin Urine Urobilinogen Ur Leukocyte Esterase Urine RBC Urine WBC Ur Squamous Epith Cells Urine Bacteria Urine Mucus Ethyl Alcohol 10.0 11/17/18 11/17/18 11/17/18 15:45 15:45 17:25 WBC RBC Hgb Hct MCV MCH MCHC RDW RDW Differential Plt Count MPV Immature Gran % (Auto) Neut % (Auto) Lymph % (Auto) Avery % (Auto) Eos % (Auto) Baso % (Auto) Absolute Neuts (auto) Absolute Lymphs (auto) Total Counted Differential Comment Platelet Estimate Polychromasia Hypochromasia Anisocytosis Macrocytosis PT 13.4 INR 1.0 APTT 27.9 Sodium 140 Potassium 4.4 Chloride 105 Carbon Dioxide 25.0 Anion Gap 10 BUN 44 H Creatinine 7.77 H* Estim Creat Clear Calc 7.16 Est GFR (MDRD) Af Amer 7 L Est GFR (MDRD) Non-Af 6 L BUN/Creatinine Ratio 5.7 L Glucose 156 H Calcium 9.1 Total Bilirubin 0.60 AST 25 ALT 10 L Alkaline Phosphatase 90 Troponin I 0.046 H Total Protein 7.8 Albumin 3.2 Globulin 4.6 H Albumin/Globulin Ratio 0.7 L Serum , Qual Urine Color Yellow Urine Clarity Clear Urine pH 8.0 Ur Specific [place] 1.010 Urine Protein 100 H Urine Glucose (UA) 100 H Urine Ketones Negative Urine Occult Blood 10 H Urine Nitrite Negative Urine Bilirubin Negative Urine Urobilinogen Normal Ur Leukocyte Esterase Negative Urine RBC 0 SEEN Urine WBC 0 SEEN Ur Squamous Epith Cells 0 SEEN Urine Bacteria 0 SEEN Urine Mucus 0 SEEN Ethyl Alcohol 11/18/18 11/18/18 04:35 04:35 WBC 7.8 RBC 2.67 L Hgb 8.7 L Hct 28.2 L MCV 105.6 H MCH 32.6 H MCHC 30.9 L RDW 18.7 H RDW Differential 66.0 H Plt Count 273 MPV 9.5 Immature Gran % (Auto) 0.500 Neut % (Auto) 68.5 Lymph % (Auto) 20.1 Avery % (Auto) 9.5 Eos % (Auto) 1.1 Baso % (Auto) 0.3 Absolute Neuts (auto) 5.4 Absolute Lymphs (auto) 1.57 Total Counted Not Reportable Differential Comment SCANNED Platelet Estimate Polychromasia Hypochromasia Anisocytosis 2+ Macrocytosis PT INR APTT Sodium 144 Potassium 4.6 Chloride 107 Carbon Dioxide 26.0 Anion Gap 11 BUN 49 H Creatinine 8.80 H* Estim Creat Clear Calc 6.03 Est GFR (MDRD) Af Amer 6 L Est GFR (MDRD) Non-Af 5 L BUN/Creatinine Ratio 5.6 L Glucose 87 Calcium 8.9 Total Bilirubin AST ALT Alkaline Phosphatase Troponin I Total Protein Albumin Globulin Albumin/Globulin Ratio Serum , Qual Urine Color Urine Clarity Urine pH Ur Specific [place] Urine Protein Urine Glucose (UA) Urine Ketones Urine Occult Blood Urine Nitrite Urine Bilirubin Urine Urobilinogen Ur Leukocyte Esterase Urine RBC Urine WBC Ur Squamous Epith Cells Urine Bacteria Urine Mucus Ethyl Alcohol POC Glucose 11/18/18 11/17/18 00:56 15:36 POC Glucose 111 H 131 H Clinical Impression(s) from Imaging Studies Brain CT 11/17/18 15:43 IMPRESSION: Normal unenhanced CT scan of the brain. Stable right ethmoid polyp or retention cyst. Electronically Signed: Myles Vieira DO at 16:51 EST Tel , Service support , Chest X-Ray 11/17/18 15:50 IMPRESSION: No acute abnormality is present. Electronically Signed: Jonathan Garcia at 16:03 EST , Service support , Chest X-Ray 11/17/18 23:29 IMPRESSION: No evidence of acute cardiopulmonary disease. Electronically Signed: Chadd Leigh MD at 1:28 EST Tel , Service support , Assessment/Plan Active and Suspected Problems (Last Reviewed 11/17/18 @ 23:29 by Garcia frias MD) Altered mental status (Acute) Uncontrolled hypertension (Acute) Hypertensive urgency, malignant (Acute) RECOMMENDATIONS: 1. Monitor blood sugars serially throughout the day 2. Obtain arterial blood gas 3. Check TSH level 4. Withhold sedating medications 5. Continue current medical management of hypertension 6. Neurology consultation IMPRESSIONS: 1. Encephalopathy Potentially metabolic in nature or related to elevated blood pressures. However, the patient's elevated blood pressures have improved on nicardipine. She has not missed any recent dialysis sessions and is currently scheduled to undergo hemodialysis today. We will plan to check an arterial blood gas and TSH level. Agree with holding sedating medications for now. The patient has not been hypoglycemic. She is not demonstrating any systemic signs of infection. Accordingly, will ask neurology to evaluate the patient as well. I do have to wonder if there is some form of underlying neuropsychiatric manifestation contributing to her current state as well. 2. Hypertensive urgency The patient's blood pressures are currently under control on nicardipine. She does appear to be on several stimulant medications in her home environment, which is likely contributing to her current elevation in blood pressure. Recommend holding stimulant medications accordingly. 3. Lupus associated end-stage renal disease on hemodialysis Nephrology has been consulted to assist with the patient's chronic hemodialysis requirements. We will plan to continue the patient's baseline outpatient lupus medications. This note was generated with [employer] dictation software. It may contain incorrect words, spelling, and punctuation that were not noted in checking the note before signing. Code Visit Inpatient E&M: 03372 Init Hosp L3
[2018-11-18 07:10] LABS: Amphetamine Urine VISTA NEGATIVE (<1000 ng/mL); Barbiturate Urine VISTA NEGATIVE (< 200 ng/mL); Benzodiazepine Urine VISTA NEGATIVE (< 200 ng/mL); Cocaine Urine VISTA NEGATIVE (< 300 ng/mL); Ecstacy Urine VISTA NEGATIVE (< 500 ng/mL); Methadone Urine VISTA NEGATIVE (< 300 ng/mL); PCP Urine VISTA NEGATIVE (< 25 ng/mL); THC Urine VISTA NEGATIVE (< 50 ng/mL); Vista UDS pH Range 7
--- NOTE | 2018-11-18 08:52 | MRI_ITS ---
STUDY: MRI BRAIN WITHOUT CONTRAST REASON FOR EXAM: Female, 48 years old. Confusion and unresponsive TECHNIQUE: Standardized multiplanar fat and water weighted pulse sequences were obtained. COMPARISON: August 13, 2018 FINDINGS: Normal size of the ventricles and extra-axial spaces for the patient's age. Normal white matter tracts of the supratentorial brain. Normal bilateral basal ganglia. Normal thalami. There is no extra-axial fluid accumulation. Normal flow voids within the major intracranial circulation suggesting patency by spin echo criteria. Normal sella turcica, pituitary gland, infundibular stalk, optic chiasm and hypothalamus. Normal tectal plate and pineal gland. Normal midbrain, ana and medulla. Normal cerebellum. Normal basal cisterns. Normal bilateral temporal bones. Normal bilateral internal auditory canals. No demonstrated orbital abnormality, within the constraints of a routine brain study. Moderate mucosal thickening of the right maxillary ethmoid and sphenoid sinuses.. Normal calvarium and skull base. Normal visualized soft tissue structures. Normal visualized upper cervical spine. No significant change since prior exam MRI/Brain without Contrast IMPRESSION: Normal unenhanced MRI of the brain Moderate right maxillary ethmoid and sphenoid sinus disease. Electronically Signed: Diogo Hoffmann MD at 16:19 EST , Service support ,
--- NOTE | 2018-11-18 08:52 | MRI_ITS ---
STUDY: MRA NECK WITHOUT CONTRAST REASON FOR EXAM: Female, 48 years old. Confusion and unresponsive TECHNIQUE: Source images were obtained, MIPs were performed. The study was performed unenhanced. COMPARISON: None. FINDINGS: RIGHT CAROTID ARTERIES: Normal right common carotid artery (CCA). Normal right common carotid bulb. Normal origin of the right internal carotid (ICA) artery without a hemodynamically significant stenosis. Normal visualized cervical portion of the right internal carotid artery. Normal origin of the right external carotid artery (ECA). LEFT CAROTID ARTERIES: Normal left common carotid artery (CCA). Normal left common carotid bulb. Normal origin of the left internal carotid (ICA) artery without a hemodynamically significant stenosis. Normal visualized cervical portion of the left internal carotid artery. Normal origin of the left external carotid artery (ECA). VERTEBRAL ARTERIES: Normal antegrade flow within the bilateral vertebral artery without a hemodynamically significant stenosis. MRI/MRA Neck without Contrast IMPRESSION: Normal bilateral cervical carotid and vertebral arteries. Electronically Signed: Diogo Hoffmann MD at 16:50 EST , Service support ,
--- NOTE | 2018-11-18 08:52 | MRI_ITS ---
STUDY: MRA OF THE HEAD WITHOUT CONTRAST REASON FOR EXAM: Female, 48 years old. Confusion and unresponsive TECHNIQUE: 3-D [id number] (TOF) imaging was performed with MIPs. The study was performed unenhanced. COMPARISON: None. FINDINGS: Normal bilateral petrous carotid arteries. Normal right cavernous carotid artery with a normal supraclinoid bifurcation. Normal left cavernous carotid artery with a normal supraclinoid bifurcation. Normal right A1 segments of the anterior cerebral artery. Normal left A1 segments of the anterior cerebral artery. Anterior communicating artery not visualized consistent with normal variant Normal bilateral A2 segments of the anterior cerebral arteries. Normal right M1 and M2 segments of the middle cerebral arteries, with a normal M1 bifurcation. Normal left M1 and M2 segments of the middle cerebral arteries, with a normal M1 bifurcation. Posterior communicating arteries not visualized consistent with normal variant. Normal bilateral vertebral arteries. Normal basilar artery with a normal basilar bifurcation. The visualized bilateral superior cerebellar (SCA) arteries are normal. Normal bilateral P1, P2 and visualized P3 segments of the posterior cerebral arteries. There is no demonstrated aneurysm of the enterprise of Cross. There is no major vessel occlusion or hemodynamically significant stenosis. There is no demonstrated abnormality of the visualized brain. MRI/MRA Head ONLY without Contrast IMPRESSION: Normal MRA of the head Electronically Signed: Diogo Hoffmann MD at 16:20 EST , Service support ,
[2018-11-18 08:57] LABS: Thyroid Stim Hormone (TSH) 0.86 uIU/mL (0.358-3.74)
[2018-11-18 09:45] LABS: Base Excess 2 mmol/L (-2 to +2); Bicarbonate 25.4 mmol/L (22-26); Blood Gas Specimen Type ART; O2 Delivery Device Room Air; PO2 83 mmHG (75-100); SITE L Radial; SO2 97 % (95-99); Time Given 937; Total Carbon Dioxide 26 mmol/L; pCO2 34.4 mmHg (35-45); pH 7.48 (7.35-7.45)
--- NOTE | 2018-11-18 10:37 | CASEMGMT ---
Addendum entered by Wilman Lang 11/18/18 14:02: Call received from LISSA Moya. Pt has Aide services through [facility] program (not [facility]) and has availability up to 14 hours/week Ramón KINSEY Original Note: RN CM Assessment: Presentation: Encephalopathy, HTN urgency. Hx of ESRD. Pt is unable to participate in RN CM assessment @ this time due to encephalopathy. PCP: Dr. Bowen Specialist: Dr. Patton Pharmacy: [facility] Coverage: yes Living Arrangements: Pt lives with mother, has first floor set up. Has aides through [facility] and skilled Home care. DME: [facility], [facility]: [facility]- Skilled RN/PT PH: FX: Public Relations Analyst: iNta Moreira PH: [phone] FX: Home Aides through [facility]. aides Wednesday-Wednesday 2 hours/day PH: FX: Dialysis: [facility] MWF 11:20 am ROSHAN ALCARAZ called all agencies above and notified of admission. DC PLAN: undetermined. Anticipate home with resuming of services. Will continue to follow and assist with dc. Ramón KINSEY
--- NOTE | 2018-11-18 11:01 | CASEMGMT ---
Addendum entered by Marielos Burgess 11/18/18 13:43: Yovana called from [facility], she states that they do not have any information regarding POA but that her classification case manager at [facility], Maral Brooke, may know. SW called [facility], Maral no longer works at [facility]. She was assigned to Melva Hammer but she just left Wednesday. Pt has not been assigned a new classification case manager yet. HUDSON Rodriguez ENGINEERING ASSISTANT Original Note: SW reviewed chart, there is no LW/POA forms in the chart. Pt has a sister and brother listed as contacts, lives with her mother. SW called Nita Modi's coating mixer supervisor at [facility](CM left a message for pt's CM Nita Moreira at [facility] already), message left inquiring about POA. SW spoke w/covering classification case manager but she was not able to look up this information since pt is an [place] [facility] pt. DION called the [facility] also in [place], pt does not have POA but her brother seems to usually be the one to make decisions for pt. DION will continue to follow and remains available for assist in regard to this pt. HUDSON Rodriguez, ENGINEERING ASSISTANT
--- NOTE | 2018-11-18 11:52 | CON.PCM_ITS ---
Problem List (1) Encephalopathy acute Status: Acute Reason for Consult Date of Consultation: 11/18/18 Reason for Consultation: AMS History of Present Illness: The patient is a 48 year old F with PMH HTN, DM, SLE, Lupus nephritis, ESRD on HD, narcolepsy admitted with AMS. History is obtained from medical records and documentation. Per ED documentation patient is non verbal and at present patient is constantly moaning, is appropriately nodding yes/no and does follow commands intermittently. Is not able to give any history is a poor historian. Found to have uncontrolled HTN on admission with SBP around 228 mmHg per documentation. Creatinine-8.8. Patient had similar admission with AMS in the past, has a history of being non compliant with HD. No witnessed seizures documented. EEG 11/14/[address] head done on admission reported nothing acute. She denies any BANKS, dizziness, focal weakness or sensory loss, denies any visual disturbances. No family available at bedside at present. [] Past Medical History Past Medical History (Chronic Problems): Chronic Problems (Last Reviewed 11/17/18 @ 23:29 by Garcia Mead MD) ESRD (end stage renal disease) on dialysis (Chronic) Chronic diarrhea (Chronic) Nonrheumatic mitral (valve) insufficiency (Chronic) Secondary pulmonary arterial hypertension (Chronic) Non-rheumatic tricuspid valve insufficiency (Chronic) End stage renal disease (Chronic) Chronic anemia (Chronic) Hypertension (Chronic) Narcolepsy (Chronic) Lupus nephritis (Chronic) Status post kidney and liver biopsy (fatty liver) Degenerative disc disease, cervical (Chronic) Cervical spondylosis (Chronic) Diabetes mellitus, type II (Chronic) SLE (systemic lupus erythematosus) (Chronic) Medical History: Medical History (Last Reviewed 11/17/18 @ 23:29 by Garcia Mead MD) Chronic diarrhea (Chronic) K52.9 Nonrheumatic mitral (valve) insufficiency (Chronic) I34.0 Secondary pulmonary arterial hypertension (Chronic) I27.21 Non-rheumatic tricuspid valve insufficiency (Chronic) I36.1 End stage renal disease (Chronic) N18.6 Chronic anemia (Chronic) D64.9 Hypertension (Chronic) I10 Narcolepsy (Chronic) G47.419 Lupus nephritis (Chronic) M32.14 Status post kidney and liver biopsy (fatty liver) Degenerative disc disease, cervical (Chronic) M50.30 Cervical spondylosis (Chronic) M47.812 Diabetes mellitus, type II (Chronic) E11.9 SLE (systemic lupus erythematosus) (Chronic) M32.9 Allergies LONG Inhibitors Allergy (Verified 11/08/18 12:43) Angioedema adhesive Allergy (Verified 11/08/18 12:43) Rash diphenhydramine [From Benadryl] Allergy (Verified 11/08/18 12:43) Unknown lisinopril Allergy (Verified 11/08/18 12:43) Angioedema Sulfa (Sulfonamide Antibiotics) Allergy (Verified 11/08/18 12:43) Rash sulfamethoxazole [From Bactrim] Allergy (Verified 11/08/18 12:43) Rash trimethoprim [From Bactrim] Allergy (Verified 11/08/18 12:43) Rash Angioderm Adverse Reaction (Unknown, Uncoded 10/16/18 17:14) Unknown Home Medications: Ambulatory Orders Medication Instructions Recorded Duloxetine Hcl [Cymbalta] 120 mg PO DAILY 10/01/16 Hydroxychloroquine [Plaquenil] 200 mg PO BIDCM 10/01/16 Atorvastatin Calcium [Lipitor] 20 mg PO QHS 01/20/18 Pregabalin [Lyrica] 75 mg PO BID 08/12/18 Sevelamer Carbonate [Renvela] 1,600 mg PO TIDCM 08/12/18 Fluticasone 0.05% [Flonase Nasal 2 spray NASAL DAILY 09/09/18 [place]] Metoprolol Tartrate [Lopressor 25 mg PO BID 09/09/18 (beta pippa)] Prednisone 5 mg PO DAILY 09/09/18 Lorazepam [Ativan] 1 mg PO DAILY PRN PRN 10/10/18 Cevimeline HCl 30 mg PO BID 11/17/18 Clindamycin Phos/Benzoyl Perox 1 applic TP BID 11/17/18 [Clinda-Benzoyl Perox 1-5% Pump] Mirtazapine 7.5 mg PO QHS 11/17/18 Ranitidine HCl 150 mg PO DAILY 11/17/18 Sucroferric Oxyhydroxide [Velphoro] 500 mg PO TIDCM 11/17/18 Surgical History: Surgical History (Last Reviewed 11/17/18 @ 23:29 by Garcia Mead MD) History of esophagogastroduodenoscopy (EGD) Z98.890 Presence of surgically created arteriovenous shunt for hemodialysis Onset Date: ~11/2017 Z99.2 S/P colonoscopy Z98.890 S/P lymph node biopsy Z98.890 S/P nasal polypectomy Z98.890 Status post carpal tunnel release Z98.890 Status post insertion of dialysis catheter Z95.828, Z99.2 Status post total hip replacement, bilateral Z96.643 port removed Surgical History: - - failed AVF left arm, AVF right arm Lives: - - Per patient she does not live alone, not able to give further history at present, as she continues to maon but nods yes/no appropriately at present Smoking Status: Never smoker - *Family History Maternal Family History: Family History (Last Reviewed 11/17/18 @ 23:29 by Garcia Mead MD) Mother Hypertension Kidney disease ALS (amyotrophic lateral sclerosis) Father Heart disease Hypertension Kidney disease Diabetes History Items: Diabetes, High Cholesterol, Heart Disease, Hypertension, Renal Disease, - Paternal Family History: Family History (Last Reviewed 11/17/18 @ 23:29 by Garcia Mead MD) Mother Hypertension Kidney disease ALS (amyotrophic lateral sclerosis) Father Heart disease Hypertension Kidney disease Diabetes History Items: Diabetes, High Cholesterol, Heart Disease, Hypertension, Renal Disease Sibling Family History: Family History (Last Reviewed 11/17/18 @ 23:29 by Garcia Mead MD) Mother Hypertension Kidney disease ALS (amyotrophic lateral sclerosis) Father Heart disease Hypertension Kidney disease Diabetes History Items: Diabetes Review of Systems Constitutional: Reports: - - ROS could not be completely obtained at present Patient Problems: Active and Suspected Problems (Last Reviewed 11/17/18 @ 23:29 by Garcia Mead MD) Altered mental status (Acute) Uncontrolled hypertension (Acute) Hypertensive urgency, malignant (Acute) - Physical Exam General: - - awake, spontaneous eye opening HEENT: Normocephalic Neck: Supple Lungs: Normal air movement Cardiovascular: Normal S1, Normal S2 Abdomen: Bowel Sounds Present Extremities: No cyanosis Neurological: - - awake, pupils BERL, EOMI, follows verbal commands intermittently, power 5/5 both UE, moves both LE, plantars B/L flexor, sensory- withdraws to painful stimuli, cerebellar/gait could not be assessed, Reflexes + B/L B/S/T/K/A Vital Signs Temp Pulse Resp BP Pulse Ox 97.9 F 101 H 18 181/85 H 100 11/18/18 07:56 11/18/18 11:00 11/18/18 11:00 11/18/18 11:00 11/18/18 11:00 Oxygen Flow Rate (L/min) 97 Oxygen Delivery Method Room Air Weight: 71.2 kg Body Mass Index (BMI) 28.8 Finger Stick Blood Glucose 131 Intake and Output for Last 24 Hours 11/16/18 11/17/18 11/18/18 23:59 23:59 23:59 Intake Total 70 / 70 Balance 70 / 70 Microbiology Past 72 Hours 11/17/18 21:40 Gram Stain - Final Fistula Laboratory Tests Past 24 Hrs 11/17/18 11/17/18 11/17/18 15:30 15:30 15:45 WBC 7.7 RBC 2.84 L Hgb 9.1 L Hct 29.8 L MCV 104.9 H MCH 32.0 MCHC 30.5 L RDW 19.2 H RDW Differential 71.2 H Plt Count 268 MPV 9.5 Immature Gran % (Auto) 0.500 Neut % (Auto) 81.2 H Lymph % (Auto) 12.2 L [place] % (Auto) 5.2 Eos % (Auto) 0.6 Baso % (Auto) 0.3 Absolute Neuts (auto) 6.3 Absolute Lymphs (auto) 0.94 Total Counted Not Reportable Differential Comment Platelet Estimate ADEQUATE Polychromasia RARE Hypochromasia RARE Anisocytosis 1+ Macrocytosis 1+ PT INR APTT Specimen Type Sample Site pH Bicarbonate Actual POC Total CO2 Base Excess O2 Saturation ABG pCO2 ABG pO2 Romeo Test O2 Delivery Device Blood Gas Notified Whom Blood Gas Notified Time Sodium Potassium Chloride Carbon Dioxide Anion Gap BUN Creatinine Estim Creat Clear Calc Est GFR (MDRD) Af Amer Est GFR (MDRD) Non-Af BUN/Creatinine Ratio Glucose Calcium Total Bilirubin AST ALT Alkaline Phosphatase Troponin I Total Protein Albumin Globulin Albumin/Globulin Ratio TSH Serum , Qual NEGATIVE Urine Color Urine Clarity Urine pH Ur Specific [place] Urine Protein Urine Glucose (UA) Urine Ketones Urine Occult Blood Urine Nitrite Urine Bilirubin Urine Urobilinogen Ur Leukocyte Esterase Urine RBC Urine WBC Ur Squamous Epith Cells Urine Bacteria Urine Mucus Urine Opiates Screen Urine Methadone Screen Ur Barbiturates Screen Ur Phencyclidine Scrn Ur Amphetamines Screen U Methamphetamin-MDMA U Benzodiazepines Scrn Urine Cocaine Screen U Cannabinoids Screen Ur Drug Screen Comment Ethyl Alcohol 10.0 11/17/18 11/17/18 11/17/18 15:45 15:45 17:25 WBC RBC Hgb Hct MCV MCH MCHC RDW RDW Differential Plt Count MPV Immature Gran % (Auto) Neut % (Auto) Lymph % (Auto) [place] % (Auto) Eos % (Auto) Baso % (Auto) Absolute Neuts (auto) Absolute Lymphs (auto) Total Counted Differential Comment Platelet Estimate Polychromasia Hypochromasia Anisocytosis Macrocytosis PT 13.4 INR 1.0 APTT 27.9 Specimen Type Sample Site pH Bicarbonate Actual POC Total CO2 Base Excess O2 Saturation ABG pCO2 ABG pO2 Romeo Test O2 Delivery Device Blood Gas Notified Whom Blood Gas Notified Time Sodium 140 Potassium 4.4 Chloride 105 Carbon Dioxide 25.0 Anion Gap 10 BUN 44 H Creatinine 7.77 H* Estim Creat Clear Calc 7.16 Est GFR (MDRD) Af Amer 7 L Est GFR (MDRD) Non-Af 6 L BUN/Creatinine Ratio 5.7 L Glucose 156 H Calcium 9.1 Total Bilirubin 0.60 AST 25 ALT 10 L Alkaline Phosphatase 90 Troponin I 0.046 H Total Protein 7.8 Albumin 3.2 Globulin 4.6 H Albumin/Globulin Ratio 0.7 L TSH Serum , Qual Urine Color Yellow Urine Clarity Clear Urine pH 8.0 Ur Specific [place] 1.010 Urine Protein 100 H Urine Glucose (UA) 100 H Urine Ketones Negative Urine Occult Blood 10 H Urine Nitrite Negative Urine Bilirubin Negative Urine Urobilinogen Normal Ur Leukocyte Esterase Negative Urine RBC 0 SEEN Urine WBC 0 SEEN Ur Squamous Epith Cells 0 SEEN Urine Bacteria 0 SEEN Urine Mucus 0 SEEN Urine Opiates Screen Urine Methadone Screen Ur Barbiturates Screen Ur Phencyclidine Scrn Ur Amphetamines Screen U Methamphetamin-MDMA U Benzodiazepines Scrn Urine Cocaine Screen U Cannabinoids Screen Ur Drug Screen Comment Ethyl Alcohol 11/17/18 11/18/18 11/18/18 17:40 04:35 04:35 WBC 7.8 RBC 2.67 L Hgb 8.7 L Hct 28.2 L MCV 105.6 H MCH 32.6 H MCHC 30.9 L RDW 18.7 H RDW Differential 66.0 H Plt Count 273 MPV 9.5 Immature Gran % (Auto) 0.500 Neut % (Auto) 68.5 Lymph % (Auto) 20.1 [place] % (Auto) 9.5 Eos % (Auto) 1.1 Baso % (Auto) 0.3 Absolute Neuts (auto) 5.4 Absolute Lymphs (auto) 1.57 Total Counted Not Reportable Differential Comment SCANNED Platelet Estimate Polychromasia Hypochromasia Anisocytosis 2+ Macrocytosis PT INR APTT Specimen Type Sample Site pH Bicarbonate Actual POC Total CO2 Base Excess O2 Saturation ABG pCO2 ABG pO2 Romeo Test O2 Delivery Device Blood Gas Notified Whom Blood Gas Notified Time Sodium 144 Potassium 4.6 Chloride 107 Carbon Dioxide 26.0 Anion Gap 11 BUN 49 H Creatinine 8.80 H* Estim Creat Clear Calc 6.03 Est GFR (MDRD) Af Amer 6 L Est GFR (MDRD) Non-Af 5 L BUN/Creatinine Ratio 5.6 L Glucose 87 Calcium 8.9 Total Bilirubin AST ALT Alkaline Phosphatase Troponin I Total Protein Albumin Globulin Albumin/Globulin Ratio TSH Serum , Qual Urine Color Urine Clarity Urine pH Ur Specific [place] Urine Protein Urine Glucose (UA) Urine Ketones Urine Occult Blood Urine Nitrite Urine Bilirubin Urine Urobilinogen Ur Leukocyte Esterase Urine RBC Urine WBC Ur Squamous Epith Cells Urine Bacteria Urine Mucus Urine Opiates Screen NEGATIVE Urine Methadone Screen NEGATIVE Ur Barbiturates Screen NEGATIVE Ur Phencyclidine Scrn NEGATIVE Ur Amphetamines Screen NEGATIVE U Methamphetamin-MDMA NEGATIVE U Benzodiazepines Scrn NEGATIVE Urine Cocaine Screen NEGATIVE U Cannabinoids Screen NEGATIVE Ur Drug Screen Comment Ethyl Alcohol 11/18/18 11/18/18 04:35 09:38 WBC RBC Hgb Hct MCV MCH MCHC RDW RDW Differential Plt Count MPV Immature Gran % (Auto) Neut % (Auto) Lymph % (Auto) [place] % (Auto) Eos % (Auto) Baso % (Auto) Absolute Neuts (auto) Absolute Lymphs (auto) Total Counted Differential Comment Platelet Estimate Polychromasia Hypochromasia Anisocytosis Macrocytosis PT INR APTT Specimen Type ART Sample Site L Radial pH 7.48 H Bicarbonate Actual 25.4 POC Total CO2 26 Base Excess 2 O2 Saturation 97 ABG pCO2 34.4 L ABG pO2 83 Romeo Test NA O2 Delivery Device Room Air Blood Gas Notified Whom ICU Blood Gas Notified Time 937 Sodium Potassium Chloride Carbon Dioxide Anion Gap BUN Creatinine Estim Creat Clear Calc Est GFR (MDRD) Af Amer Est GFR (MDRD) Non-Af BUN/Creatinine Ratio Glucose Calcium Total Bilirubin AST ALT Alkaline Phosphatase Troponin I Total Protein Albumin Globulin Albumin/Globulin Ratio TSH 0.86 Serum , Qual Urine Color Urine Clarity Urine pH Ur Specific [place] Urine Protein Urine Glucose (UA) Urine Ketones Urine Occult Blood Urine Nitrite Urine Bilirubin Urine Urobilinogen Ur Leukocyte Esterase Urine RBC Urine WBC Ur Squamous Epith Cells Urine Bacteria Urine Mucus Urine Opiates Screen Urine Methadone Screen Ur Barbiturates Screen Ur Phencyclidine Scrn Ur Amphetamines Screen U Methamphetamin-MDMA U Benzodiazepines Scrn Urine Cocaine Screen U Cannabinoids Screen Ur Drug Screen Comment Ethyl Alcohol POC Glucose 11/18/18 11/17/18 00:56 15:36 POC Glucose 111 H 131 H Assessment/Plan All Active Problems (Last Reviewed 11/17/18 @ 23:29 by Garcia Mead MD) Altered mental status (Acute) Uncontrolled hypertension (Acute) Hypertensive urgency, malignant (Acute) Hyperkalemia (Acute) Extremity edema (Acute) Encephalopathy acute (Acute) The patient is a 48 year old F with PMH HTN, DM, SLE, Lupus nephritis, ESRD on HD, narcolepsy admitted with AMS. History is obtained from medical records and documentation. Per ED documentation patient is non verbal and at present patient is constantly moaning, is appropriately nodding yes/no and does follow commands intermittently. Is not able to give any history is a poor historian. Found to have uncontrolled HTN on admission with SBP around 228 mmHg per documentation. Creatinine-8.8. Patient had similar admission with AMS in the past, has a history of being non compliant with HD. No witnessed seizures documented. EEG 11/14/[address] head done on admission reported nothing acute. She denies any BANKS, dizziness, focal weakness or sensory loss, denies any visual disturbances. No family available at bedside at present. Impression Likely Metabolic encephalopathy HTN emergency/urgency Plan -Check MRI brain w/o contrast, MRA Head/neck w/o contrast -Check EEG -Labs reviewed -Check Ammonia, LFTs, UA -Fall precautions -Further medical management per hospitalist, ICU team and Nephrology -HD -GI/DVT prophylaxis -Please call with questions if any -Thank you for allowing us to participate in patient's care and management. Code Visit Inpatient E&M: [id number] Init Hosp L3
--- NOTE | 2018-11-18 14:15 | PCM.PN.HOSP ---
Patient Problems: Active and Suspected Problems (Last Reviewed 11/17/18 @ 23:29 by Garcia Mead MD) Altered mental status (Acute) Uncontrolled hypertension (Acute) Hypertensive urgency, malignant (Acute) Subjective: From earlier in the day was that she was initially nonverbal and then she was yelling in her family. On my exam she was calm and communicative though flat. She states that she feels okay and that she thinks she is at the dialysis center. She also thinks that the year is 1998. Vitals/I&O's: Vital Signs Temp Pulse Resp BP Pulse Ox 98.1 F 110 H 16 141/71 H 100 11/18/18 12:00 11/18/18 13:15 11/18/18 13:15 11/18/18 13:15 11/18/18 13:15 Oxygen Flow Rate (L/min) 97 Oxygen Delivery Method Room Air Weight: 156 lb 15.506 oz Body Mass Index (BMI) 28.8 Finger Stick Blood Glucose 131 Intake and Output for Last 24 Hours 11/16/18 11/17/18 11/18/18 23:59 23:59 23:59 Intake Total 269 / 269 Output Total 0 / 0 Balance 269 / 269 General: Alert, Cooperative, No apparent distress HEENT: Atraumatic, PERRLA, EOMI, Normocephalic Oral: Dry Mucosa Neck: Supple, No JVD, Trachea Midline Lungs: Clear to auscultation, Normal air movement, No rhonchi, No wheeze, No rales Cardiovascular: Regular rate, Regular Rhythm, Normal S1, Normal S2, No murmurs Abdomen: Soft, Non Tender, Non-Distended, No Hepato-splenomegaly Extremities: No edema, Capillary Refill Less than 3 Seconds Skin: Ulcer/ Wound - RUE, dressing intact, - - Dialysis catheter present in the right chest Neurological: - - No gross, focal deficits Psych/Mental Status: Flat Affect Microbiology Past 72 Hours 11/17/18 21:40 Fistula Gram Stain - Final Laboratory Results 11/17/18 15:30: Ethyl Alcohol 10.0 11/17/18 15:30: Serum , Qual NEGATIVE 11/17/18 15:36: POC Glucose 131 H 11/17/18 15:45: WBC 7.7, RBC 2.84 L, Hgb 9.1 L, Hct 29.8 L, MCV 104.9 H, MCH 32.0, MCHC 30.5 L, RDW 19.2 H, RDW Differential 71.2 H, Plt Count 268, MPV 9.5, Immature Gran % (Auto) 0.500, Neut % (Auto) 81.2 H, Lymph % (Auto) 12.2 L, [place] % (Auto) 5.2, Eos % (Auto) 0.6, Baso % (Auto) 0.3, Absolute Neuts (auto) 6.3, Absolute Lymphs (auto) 0.94, Total Counted Not Reportable, Platelet Estimate ADEQUATE, Polychromasia RARE, Hypochromasia RARE, Anisocytosis 1+, Macrocytosis 1+ 11/17/18 15:45: PT 13.4, INR 1.0, APTT 27.9 11/17/18 15:45: Sodium 140, Potassium 4.4, Chloride 105, Carbon Dioxide 25.0, Anion Gap 10, BUN 44 H, Creatinine 7.77 H*, Estim Creat Clear Calc 7.16, Est GFR (MDRD) Af Amer 7 L, Est GFR (MDRD) Non-Af 6 L, BUN/Creatinine Ratio 5.7 L, Glucose 156 H, Calcium 9.1, Total Bilirubin 0.60, AST 25, ALT 10 L, Alkaline Phosphatase 90, Troponin I 0.046 H, Total Protein 7.8, Albumin 3.2, Globulin 4.6 H, Albumin/Globulin Ratio 0.7 L 11/17/18 17:25: Urine Color Yellow, Urine Clarity Clear, Urine pH 8.0, Ur Specific [place] 1.010, Urine Protein 100 H, Urine Glucose (UA) 100 H, Urine Ketones Negative, Urine Occult Blood 10 H, Urine Nitrite Negative, Urine Bilirubin Negative, Urine Urobilinogen Normal, Ur Leukocyte Esterase Negative, Urine RBC 0 SEEN, Urine WBC 0 SEEN, Ur Squamous Epith Cells 0 SEEN, Urine Bacteria 0 SEEN, Urine Mucus 0 SEEN 11/17/18 17:40: Urine Opiates Screen NEGATIVE, Urine Methadone Screen NEGATIVE, Ur Barbiturates Screen NEGATIVE, Ur Phencyclidine Scrn NEGATIVE, Ur Amphetamines Screen NEGATIVE, U Methamphetamin-MDMA NEGATIVE, U Benzodiazepines Scrn NEGATIVE, Urine Cocaine Screen NEGATIVE, U Cannabinoids Screen NEGATIVE, Ur Drug Screen Comment 11/18/18 00:56: POC Glucose 111 H 11/18/18 04:35: Sodium 144, Potassium 4.6, Chloride 107, Carbon Dioxide 26.0, Anion Gap 11, BUN 49 H, Creatinine 8.80 H*, Estim Creat Clear Calc 6.03, Est GFR (MDRD) Af Amer 6 L, Est GFR (MDRD) Non-Af 5 L, BUN/Creatinine Ratio 5.6 L, Glucose 87, Calcium 8.9 11/18/18 04:35: WBC 7.8, RBC 2.67 L, Hgb 8.7 L, Hct 28.2 L, MCV 105.6 H, MCH 32.6 H, MCHC 30.9 L, RDW 18.7 H, RDW Differential 66.0 H, Plt Count 273, MPV 9.5, Immature Gran % (Auto) 0.500, Neut % (Auto) 68.5, Lymph % (Auto) 20.1, [place] % (Auto) 9.5, Eos % (Auto) 1.1, Baso % (Auto) 0.3, Absolute Neuts (auto) 5.4, Absolute Lymphs (auto) 1.57, Total Counted Not Reportable, Differential Comment SCANNED, Anisocytosis 2+ 11/18/18 04:35: TSH 0.86 11/18/18 09:38: Specimen Type ART, Sample Site L Radial, pH 7.48 H, Bicarbonate Actual 25.4, POC Total CO2 26, Base Excess 2, O2 Saturation 97, ABG pCO2 34.4 L, ABG pO2 83, Romeo Test NA, O2 Delivery Device Room Air, Blood Gas Notified Whom ICU MD, Blood Gas Notified Time 937 Current Medications Atorvastatin Calcium (Lipitor) 20 mg PO QHS [facility] Dextrose (D50w Syringe) 0 gm IV X1 PRN; Protocol PRN Reason: Hypoglycemia Famotidine (Pepcid) 20 mg PO DAILY ENRIQUE Glucagon () 1 mg IM .X1 PRN PRN Reason: Hypoglycemia Heparin Sodium (Porcine) () 2,500 units IV UD PRN PRN Reason: HEPARIN FLUSH Heparin Sodium (Porcine) (Heparin Na) 5,000 unit SC Q8 ENRIQUE Last Admin: 11/18/18 05:49 Dose: 5,000 unit Hydralazine HCl (Apresoline Iv) 5 mg IV Q4H PRN PRN PRN Reason: SBP GREATER THAN 170 Last Admin: 11/18/18 09:24 Dose: 5 mg Hydroxychloroquine Sulfate (Plaquenil) 200 mg PO BIDCM [facility] Sodium Chloride () 250 mls @ 15 mls/hr IV .[id number] PRN PRN Reason: SALINE FLUSH Nicardipine HCl 25 mg/ Sodium (Chloride) 250 mls @ 50 mls/hr IV .Q5H ENRIQUE Labetalol HCl (Trandate) 10 mg IV Q4H PRN PRN PRN Reason: SBP GREATER THAN 170 Last Admin: 11/18/18 06:07 Dose: 10 mg Magnesium Hydroxide (Milk Of Magnesia) 30 ml PO DAILY PRN PRN PRN Reason: Constipation Metoprolol Tartrate (Lopressor (Beta Cirilo)) 25 mg PO BID ENRIQUE Ondansetron HCl (Zofran) 4 mg IV Q8H PRN PRN PRN Reason: NAUSEA Prednisone () 5 mg PO DAILYCM [facility] Sevelamer Carbonate (Renvela) 1,600 mg PO TIDCM ENRIQUE Sodium Chloride () 5 - 15 ml IV UD PRN PRN Reason: SALINE FLUSH Last Admin: 11/18/18 06:07 Dose: 10 ml Sodium Chloride () 10 - 40 ml IV UD PRN PRN Reason: MULTILUMEN/HICMAN CATH FLUSH Sodium Chloride () 10 ml IV UD PRN PRN Reason: Dialysis Catheter Flush Medical Necessity - Tobacco Use Smoking Status: Never smoker Assessment/Plan All Active Problems (Last Reviewed 11/17/18 @ 23:29 by Garcia Mead MD) Altered mental status (Acute) Uncontrolled hypertension (Acute) Hypertensive urgency, malignant (Acute) Hyperkalemia (Acute) Extremity edema (Acute) Encephalopathy acute (Acute) 1. Acute metabolic encephalopathy/end-stage renal disease Judah to lupus nephritis/hypertensive urgency/HLD -Unsure of the etiology at the moment, her creatinine appears to be at baseline she has not missed any dialysis per nephrology -Further workup by neurology is pending -UDS was negative -Cultures are pending from the wound and blood in her right upper extremity, pulmonary Gram stain is negative for organisms -Nightly on a nicardipine drip for her blood pressure which does appear stable at the moment at one point she was 240 systolic with a diastolic of 116 -With dialysis her Plaquenil for her lupus was prednisone -Continue with Lipitor 2. DM 2 with neuropathy -Not appear to be on any outpatient medications -Continue with sliding scale insulin and Accu-Cheks -Lyrica for her neuropathy 3. GERD -Stable -Continue with Pepcid 4. Depression -She is on Cymbalta and Remeron as an outpatient which were held DVT: Heparin Code Visit Inpatient E&M: 57028 Subs Hosp L2
--- NOTE | 2018-11-18 14:23 | PN_ITS ---
Patient Problems: Active and Suspected Problems (Last Reviewed 11/17/18 @ 23:29 by Garcia Mead MD) Altered mental status (Acute) Uncontrolled hypertension (Acute) Hypertensive urgency, malignant (Acute) Subjective: From earlier in the day was that she was initially nonverbal and then she was yelling in her family. On my exam she was calm and communicative though flat. She states that she feels okay and that she thinks she is at the dialysis center. She also thinks that the year is 1998. Vitals/I&O's: Vital Signs Temp Pulse Resp BP Pulse Ox 98.1 F 110 H 16 141/71 H 100 11/18/18 12:00 11/18/18 13:15 11/18/18 13:15 11/18/18 13:15 11/18/18 13:15 Oxygen Flow Rate (L/min) 97 Oxygen Delivery Method Room Air Weight: 156 lb 15.506 oz Body Mass Index (BMI) 28.8 Finger Stick Blood Glucose 131 Intake and Output for Last 24 Hours 11/16/18 11/17/18 11/18/18 23:59 23:59 23:59 Intake Total 269 / 269 Output Total 0 / 0 Balance 269 / 269 General: Alert, Cooperative, No apparent distress HEENT: Atraumatic, PERRLA, EOMI, Normocephalic Oral: Dry Mucosa Neck: Supple, No JVD, Trachea Midline Lungs: Clear to auscultation, Normal air movement, No rhonchi, No wheeze, No rales Cardiovascular: Regular rate, Regular Rhythm, Normal S1, Normal S2, No murmurs Abdomen: Soft, Non Tender, Non-Distended, No Hepato-splenomegaly Extremities: No edema, Capillary Refill Less than 3 Seconds Skin: Ulcer/ Wound - RUE, dressing intact, - - Dialysis catheter present in the right chest Neurological: - - No gross, focal deficits Psych/Mental Status: Flat Affect Microbiology Past 72 Hours 11/17/18 21:40 Fistula Gram Stain - Final Laboratory Results 11/17/18 15:30: Ethyl Alcohol 10.0 11/17/18 15:30: Serum , Qual NEGATIVE 11/17/18 15:36: POC Glucose 131 H 11/17/18 15:45: WBC 7.7, RBC 2.84 L, Hgb 9.1 L, Hct 29.8 L, MCV 104.9 H, MCH 32.0, MCHC 30.5 L, RDW 19.2 H, RDW Differential 71.2 H, Plt Count 268, MPV 9.5, Immature Gran % (Auto) 0.500, Neut % (Auto) 81.2 H, Lymph % (Auto) 12.2 L, Greene % (Auto) 5.2, Eos % (Auto) 0.6, Baso % (Auto) 0.3, Absolute Neuts (auto) 6.3, Absolute Lymphs (auto) 0.94, Total Counted Not Reportable, Platelet Estimate ADEQUATE, Polychromasia RARE, Hypochromasia RARE, Anisocytosis 1+, Macrocytosis 1+ 11/17/18 15:45: PT 13.4, INR 1.0, APTT 27.9 11/17/18 15:45: Sodium 140, Potassium 4.4, Chloride 105, Carbon Dioxide 25.0, Anion Gap 10, BUN 44 H, Creatinine 7.77 H*, Estim Creat Clear Calc 7.16, Est GFR (MDRD) Af Amer 7 L, Est GFR (MDRD) Non-Af 6 L, BUN/Creatinine Ratio 5.7 L, Glucose 156 H, Calcium 9.1, Total Bilirubin 0.60, AST 25, ALT 10 L, Alkaline Phosphatase 90, Troponin I 0.046 H, Total Protein 7.8, Albumin 3.2, Globulin 4.6 H, Albumin/Globulin Ratio 0.7 L 11/17/18 17:25: Urine Color Yellow, Urine Clarity Clear, Urine pH 8.0, Ur Specific [place] 1.010, Urine Protein 100 H, Urine Glucose (UA) 100 H, Urine Ketones Negative, Urine Occult Blood 10 H, Urine Nitrite Negative, Urine Bilirubin Negative, Urine Urobilinogen Normal, Ur Leukocyte Esterase Negative, Urine RBC 0 SEEN, Urine WBC 0 SEEN, Ur Squamous Epith Cells 0 SEEN, Urine Bacteria 0 SEEN, Urine Mucus 0 SEEN 11/17/18 17:40: Urine Opiates Screen NEGATIVE, Urine Methadone Screen NEGATIVE, Ur Barbiturates Screen NEGATIVE, Ur Phencyclidine Scrn NEGATIVE, Ur Amphetamines Screen NEGATIVE, U Methamphetamin-MDMA NEGATIVE, U Benzodiazepines Scrn NEGATIVE, Urine Cocaine Screen NEGATIVE, U Cannabinoids Screen NEGATIVE, Ur Drug Screen Comment 11/18/18 00:56: POC Glucose 111 H 11/18/18 04:35: Sodium 144, Potassium 4.6, Chloride 107, Carbon Dioxide 26.0, Anion Gap 11, BUN 49 H, Creatinine 8.80 H*, Estim Creat Clear Calc 6.03, Est GFR (MDRD) Af Amer 6 L, Est GFR (MDRD) Non-Af 5 L, BUN/Creatinine Ratio 5.6 L, Glucose 87, Calcium 8.9 11/18/18 04:35: WBC 7.8, RBC 2.67 L, Hgb 8.7 L, Hct 28.2 L, MCV 105.6 H, MCH 32.6 H, MCHC 30.9 L, RDW 18.7 H, RDW Differential 66.0 H, Plt Count 273, MPV 9.5, Immature Gran % (Auto) 0.500, Neut % (Auto) 68.5, Lymph % (Auto) 20.1, Greene % (Auto) 9.5, Eos % (Auto) 1.1, Baso % (Auto) 0.3, Absolute Neuts (auto) 5.4, Absolute Lymphs (auto) 1.57, Total Counted Not Reportable, Differential Comment SCANNED, Anisocytosis 2+ 11/18/18 04:35: TSH 0.86 11/18/18 09:38: Specimen Type ART, Sample Site L Radial, pH 7.48 H, Bicarbonate Actual 25.4, POC Total CO2 26, Base Excess 2, O2 Saturation 97, ABG pCO2 34.4 L, ABG pO2 83, Romeo Test NA, O2 Delivery Device Room Air, Blood Gas Notified Whom ICU MD, Blood Gas Notified Time 937 Current Medications Atorvastatin Calcium (Lipitor) 20 mg PO QHS [facility] Dextrose (D50w Syringe) 0 gm IV X1 PRN; Protocol PRN Reason: Hypoglycemia Famotidine (Pepcid) 20 mg PO DAILY ENRIQUE Glucagon () 1 mg IM .X1 PRN PRN Reason: Hypoglycemia Heparin Sodium (Porcine) () 2,500 units IV UD PRN PRN Reason: HEPARIN FLUSH Heparin Sodium (Porcine) (Heparin Na) 5,000 unit SC Q8 ENRIQUE Last Admin: 11/18/18 05:49 Dose: 5,000 unit Hydralazine HCl (Apresoline Iv) 5 mg IV Q4H PRN PRN PRN Reason: SBP GREATER THAN 170 Last Admin: 11/18/18 09:24 Dose: 5 mg Hydroxychloroquine Sulfate (Plaquenil) 200 mg PO BIDCM [facility] Sodium Chloride () 250 mls @ 15 mls/hr IV .[id number] PRN PRN Reason: SALINE FLUSH Nicardipine HCl 25 mg/ Sodium (Chloride) 250 mls @ 50 mls/hr IV .Q5H ENRIQUE Labetalol HCl (Trandate) 10 mg IV Q4H PRN PRN PRN Reason: SBP GREATER THAN 170 Last Admin: 11/18/18 06:07 Dose: 10 mg Magnesium Hydroxide (Milk Of Magnesia) 30 ml PO DAILY PRN PRN PRN Reason: Constipation Metoprolol Tartrate (Lopressor (Beta Cirilo)) 25 mg PO BID ENRIQUE Ondansetron HCl (Zofran) 4 mg IV Q8H PRN PRN PRN Reason: NAUSEA Prednisone () 5 mg PO DAILYCM [facility] Sevelamer Carbonate (Renvela) 1,600 mg PO TIDCM ENRIQUE Sodium Chloride () 5 - 15 ml IV UD PRN PRN Reason: SALINE FLUSH Last Admin: 11/18/18 06:07 Dose: 10 ml Sodium Chloride () 10 - 40 ml IV UD PRN PRN Reason: MULTILUMEN/HICMAN CATH FLUSH Sodium Chloride () 10 ml IV UD PRN PRN Reason: Dialysis Catheter Flush Medical Necessity - Tobacco Use Smoking Status: Never smoker Assessment/Plan All Active Problems (Last Reviewed 11/17/18 @ 23:29 by Garcia Mead MD) Altered mental status (Acute) Uncontrolled hypertension (Acute) Hypertensive urgency, malignant (Acute) Hyperkalemia (Acute) Extremity edema (Acute) Encephalopathy acute (Acute) 1. Acute metabolic encephalopathy/end-stage renal disease Judah to lupus nephritis/hypertensive urgency/HLD -Unsure of the etiology at the moment, her creatinine appears to be at baseline she has not missed any dialysis per nephrology -Further workup by neurology is pending -UDS was negative -Cultures are pending from the wound and blood in her right upper extremity, pulmonary Gram stain is negative for organisms -Nightly on a nicardipine drip for her blood pressure which does appear stable at the moment at one point she was 240 systolic with a diastolic of 116 -With dialysis her Plaquenil for her lupus was prednisone -Continue with Lipitor 2. DM 2 with neuropathy -Not appear to be on any outpatient medications -Continue with sliding scale insulin and Accu-Cheks -Lyrica for her neuropathy 3. GERD -Stable -Continue with Pepcid 4. Depression -She is on Cymbalta and Remeron as an outpatient which were held DVT: Heparin Code Visit Inpatient E&M: 01224 Subs Hosp L2
--- NOTE | 2018-11-18 14:28 | PCM.CONS.R ---
Consultation - Renal 11/18/18 PCP/ Referring MD: Requesting physician: [] Primary care physician: Mitchell Bowen MD Reason for Consultation:: ESRD HD MWF, renal mgmt - History of Present Illness History of Present Illness: The patient is a 48 year old F with ESRD due to diabetes history of lupus nephritis, hypertension, diabetes mellitus type 2, anxiety disorder, narcolepsy, C. difficile colitis admitted for change in mental status. Patient is admitted to intensive care unit for further management. She was started on Cardene drip for uncontrolled hypertension. Blood pressure was 190 systolic. Currently patient is unable to provide history. She remains confused, disoriented x3. Chart reviewed. Neurology was consulted to evaluate for EEG. Outpatient EEG was essentially unremarkable. She has a history of hyperinsulinemia with frequent re-hospitalizations for altered mental status and uncontrolled hypertension with encephalopathy. She has been treated with cefepime 2 g with each dialysis for the past 2 weeks following her stage II procedure for her AV fistula by Dr. Spangler at [facility]. Wound culture obtained at the dialysis center was positive for heavy growth of Pseudomonas and Serratia. Erythema of her right upper extremity has improved. She was scheduled for wound VAC placement next week by vascular surgery. She continues to have right upper arm swelling which is chronic. She has been compliant with her hemodialysis treatments. - Allergies Allergies: Allergies LONG Inhibitors Allergy (Verified 11/08/18 12:43) Angioedema adhesive Allergy (Verified 11/08/18 12:43) Rash diphenhydramine [From Benadryl] Allergy (Verified 11/08/18 12:43) Unknown lisinopril Allergy (Verified 11/08/18 12:43) Angioedema Sulfa (Sulfonamide Antibiotics) Allergy (Verified 11/08/18 12:43) Rash sulfamethoxazole [From Bactrim] Allergy (Verified 11/08/18 12:43) Rash trimethoprim [From Bactrim] Allergy (Verified 11/08/18 12:43) Rash Angioderm Adverse Reaction (Unknown, Uncoded 10/16/18 17:14) Unknown - Current Medications Current Medications: Current Medications Atorvastatin Calcium (Lipitor) 20 mg PO QHS ENRIQUE Dextrose (D50w Syringe) 0 gm IV X1 PRN; Protocol PRN Reason: Hypoglycemia Famotidine (Pepcid) 20 mg PO DAILY ENRIQUE Glucagon () 1 mg IM .X1 PRN PRN Reason: Hypoglycemia Heparin Sodium (Porcine) () 2,500 units IV UD PRN PRN Reason: HEPARIN FLUSH Heparin Sodium (Porcine) (Heparin Na) 5,000 unit SC Q8 ENRIQUE Last Admin: 11/18/18 05:49 Dose: 5,000 unit Hydralazine HCl (Apresoline Iv) 5 mg IV Q4H PRN PRN PRN Reason: SBP GREATER THAN 170 Last Admin: 11/18/18 09:24 Dose: 5 mg Hydroxychloroquine [facility]il) [facility] Sodium Chloride () 250 mls @ 15 mls/hr IV .[id number] PRN PRN Reason: SALINE FLUSH Nicardipine HCl 25 mg/ Sodium (Chloride) 250 mls @ 50 mls/hr IV .Q5H [facility] Labetalol HCl (Trandate) 10 mg IV Q4H PRN PRN PRN Reason: SBP GREATER THAN 170 Last Admin: 11/18/18 06:07 Dose: 10 mg Magnesium Hydroxide (Milk Of Magnesia) 30 ml PO DAILY PRN PRN PRN Reason: Constipation Metoprolol Tartrate (Lopressor (Beta Cirilo)) 25 mg PO BID [facility] Ondansetron HCl (Zofran) 4 mg IV Q8H PRN PRN PRN Reason: NAUSEA Prednisone () [facility] Sevelamer Carbonate (Renvela) 1,600 mg PO TIDCM [facility] Sodium Chloride () 5 - 15 ml IV UD PRN PRN Reason: SALINE FLUSH Last Admin: 11/18/18 06:07 Dose: 10 ml Sodium Chloride () 10 - 40 ml IV UD PRN PRN Reason: MULTILUMEN/HICMAN CATH FLUSH Sodium Chloride () 10 ml IV UD PRN PRN Reason: Dialysis Catheter Flush - Past Medical History Past Medical History (Chronic Problems): Chronic Problems (Last Reviewed 11/17/18 @ 23:29 by Garcia Mead MD) ESRD (end stage renal disease) on dialysis (Chronic) Chronic diarrhea (Chronic) Nonrheumatic mitral (valve) insufficiency (Chronic) Secondary pulmonary arterial hypertension (Chronic) Non-rheumatic tricuspid valve insufficiency (Chronic) End stage renal disease (Chronic) Chronic anemia (Chronic) Hypertension (Chronic) Narcolepsy (Chronic) Lupus nephritis (Chronic) Status post kidney and liver biopsy (fatty liver) Degenerative disc disease, cervical (Chronic) Cervical spondylosis (Chronic) Diabetes mellitus, type II (Chronic) SLE (systemic lupus erythematosus) (Chronic) - Past Surgical History Surgical History: - - failed AVF left arm, AVF right arm - Social History Marital Status: Single Smoking Status: Never smoker Alcohol: None Drugs: None - Family History Maternal Family History: Family History (Last Reviewed 11/17/18 @ 23:29 by Garcia Mead MD) Mother Hypertension Kidney disease ALS (amyotrophic lateral sclerosis) Father Heart disease Hypertension Kidney disease Diabetes History Items: Diabetes, High Cholesterol, Heart Disease, Hypertension, Renal Disease, - Paternal Family History: Family History (Last Reviewed 11/17/18 @ 23:29 by Garcia Mead MD) Mother Hypertension Kidney disease ALS (amyotrophic lateral sclerosis) Father Heart disease Hypertension Kidney disease Diabetes History Items: Diabetes, High Cholesterol, Heart Disease, Hypertension, Renal Disease Sibling Family History: Family History (Last Reviewed 11/17/18 @ 23:29 by Garcia Mead MD) Mother Hypertension Kidney disease ALS (amyotrophic lateral sclerosis) Father Heart disease Hypertension Kidney disease Diabetes History Items: Diabetes Review of Systems Unable to obtain accurate/complete ROS d/t: Patient with confusion, encephalopathy. Unable to provide history Patient Problems: Active and Suspected Problems (Last Reviewed 11/17/18 @ 23:29 by Garcia Mead MD) Altered mental status (Acute) Uncontrolled hypertension (Acute) Hypertensive urgency, malignant (Acute) - Physical Exam General: Confused, Disoriented Oral: Moist Mucosa Neck: Supple Lungs: Clear to auscultation Cardiovascular: Regular rate Abdomen: Bowel Sounds Present, Soft, Non Tender, Non-Distended Extremities: Edema - Right upper extremity edema with positive bruit, weak thrill over AV fistula. Musculoskeletal: Muscle Wasting Psych/Mental Status: - - Confused Vital Signs Temp Pulse Resp BP Pulse Ox 98.1 F 110 H 16 141/71 H 100 11/18/18 12:00 11/18/18 13:15 11/18/18 13:15 11/18/18 13:15 11/18/18 13:15 Oxygen Flow Rate (L/min) 97 Oxygen Delivery Method Room Air Weight: 71.2 kg Body Mass Index (BMI) 28.8 Finger Stick Blood Glucose 131 Intake and Output for Last 24 Hours 11/16/18 11/17/1811/18/19 23:59 23:59 23:59 Intake Total 269 / 269 Output Total 0 / 0 Balance 269 / 269 Microbiology Past 72 Hours 11/17/18 21:40 Gram Stain - Final Fistula Laboratory Tests Past 24 Hrs 11/17/18 11/17/18 11/17/18 15:30 15:30 15:45 WBC 7.7 RBC 2.84 L Hgb 9.1 L Hct 29.8 L MCV 104.9 H MCH 32.0 MCHC 30.5 L RDW 19.2 H RDW Differential 71.2 H Plt Count 268 MPV 9.5 Immature Gran % (Auto) 0.500 Neut % (Auto) 81.2 H Lymph % (Auto) 12.2 L [place] % (Auto) 5.2 Eos % (Auto) 0.6 Baso % (Auto) 0.3 Absolute Neuts (auto) 6.3 Absolute Lymphs (auto) 0.94 Total Counted Not Reportable Differential Comment Platelet Estimate ADEQUATE Polychromasia RARE Hypochromasia RARE Anisocytosis 1+ Macrocytosis 1+ PT INR APTT Specimen Type Sample Site pH Bicarbonate Actual POC Total CO2 Base Excess O2 Saturation ABG pCO2 ABG pO2 Romeo Test O2 Delivery Device Blood Gas Notified Whom Blood Gas Notified Time Sodium Potassium Chloride Carbon Dioxide Anion Gap BUN Creatinine Estim Creat Clear Calc Est GFR (MDRD) Af Amer Est GFR (MDRD) Non-Af BUN/Creatinine Ratio Glucose Calcium Total Bilirubin AST ALT Alkaline Phosphatase Troponin I Total Protein Albumin Globulin Albumin/Globulin Ratio TSH Serum , Qual NEGATIVE Urine Color Urine Clarity Urine pH Ur Specific [place] Urine Protein Urine Glucose (UA) Urine Ketones Urine Occult Blood Urine Nitrite Urine Bilirubin Urine Urobilinogen Ur Leukocyte Esterase Urine RBC Urine WBC Ur Squamous Epith Cells Urine Bacteria Urine Mucus Urine Opiates Screen Urine Methadone Screen Ur Barbiturates Screen Ur Phencyclidine Scrn Ur Amphetamines Screen U Methamphetamin-MDMA U Benzodiazepines Scrn Urine Cocaine Screen U Cannabinoids Screen Ur Drug Screen Comment Ethyl Alcohol 10.0 11/17/18 11/17/18 11/17/18 15:45 15:45 17:25 WBC RBC Hgb Hct MCV MCH MCHC RDW RDW Differential Plt Count MPV Immature Gran % (Auto) Neut % (Auto) Lymph % (Auto) [place] % (Auto) Eos % (Auto) Baso % (Auto) Absolute Neuts (auto) Absolute Lymphs (auto) Total Counted Differential Comment Platelet Estimate Polychromasia Hypochromasia Anisocytosis Macrocytosis PT 13.4 INR 1.0 APTT 27.9 Specimen Type Sample Site pH Bicarbonate Actual POC Total CO2 Base Excess O2 Saturation ABG pCO2 ABG pO2 Romeo Test O2 Delivery Device Blood Gas Notified Whom Blood Gas Notified Time Sodium 140 Potassium 4.4 Chloride 105 Carbon Dioxide 25.0 Anion Gap 10 BUN 44 H Creatinine 7.77 H* Estim Creat Clear Calc 7.16 Est GFR (MDRD) Af Amer 7 L Est GFR (MDRD) Non-Af 6 L BUN/Creatinine Ratio 5.7 L Glucose 156 H Calcium 9.1 Total Bilirubin 0.60 AST 25 ALT 10 L Alkaline Phosphatase 90 Troponin I 0.046 H Total Protein 7.8 Albumin 3.2 Globulin 4.6 H Albumin/Globulin Ratio 0.7 L TSH Serum , Qual Urine Color Yellow Urine Clarity Clear Urine pH 8.0 Ur Specific [place] 1.010 Urine Protein 100 H Urine Glucose (UA) 100 H Urine Ketones Negative Urine Occult Blood 10 H Urine Nitrite Negative Urine Bilirubin Negative Urine Urobilinogen Normal Ur Leukocyte Esterase Negative Urine RBC 0 SEEN Urine WBC 0 SEEN Ur Squamous Epith Cells 0 SEEN Urine Bacteria 0 SEEN Urine Mucus 0 SEEN Urine Opiates Screen Urine Methadone Screen Ur Barbiturates Screen Ur Phencyclidine Scrn Ur Amphetamines Screen U Methamphetamin-MDMA U Benzodiazepines Scrn Urine Cocaine Screen U Cannabinoids Screen Ur Drug Screen Comment Ethyl Alcohol 11/17/18 11/18/18 11/18/18 17:40 04:35 04:35 WBC 7.8 RBC 2.67 L Hgb 8.7 L Hct 28.2 L MCV 105.6 H MCH 32.6 H MCHC 30.9 L RDW 18.7 H RDW Differential 66.0 H Plt Count 273 MPV 9.5 Immature Gran % (Auto) 0.500 Neut % (Auto) 68.5 Lymph % (Auto) 20.1 Sterling % (Auto) 9.5 Eos % (Auto) 1.1 Baso % (Auto) 0.3 Absolute Neuts (auto) 5.4 Absolute Lymphs (auto) 1.57 Total Counted Not Reportable Differential Comment SCANNED Platelet Estimate Polychromasia Hypochromasia Anisocytosis 2+ Macrocytosis PT INR APTT Specimen Type Sample Site pH Bicarbonate Actual POC Total CO2 Base Excess O2 Saturation ABG pCO2 ABG pO2 Romeo Test O2 Delivery Device Blood Gas Notified Whom Blood Gas Notified Time Sodium 144 Potassium 4.6 Chloride 107 Carbon Dioxide 26.0 Anion Gap 11 BUN 49 H Creatinine 8.80 H* Estim Creat Clear Calc 6.03 Est GFR (MDRD) Af Amer 6 L Est GFR (MDRD) Non-Af 5 L BUN/Creatinine Ratio 5.6 L Glucose 87 Calcium 8.9 Total Bilirubin AST ALT Alkaline Phosphatase Troponin I Total Protein Albumin Globulin Albumin/Globulin Ratio TSH Serum , Qual Urine Color Urine Clarity Urine pH Ur Specific [place] Urine Protein Urine Glucose (UA) Urine Ketones Urine Occult Blood Urine Nitrite Urine Bilirubin Urine Urobilinogen Ur Leukocyte Esterase Urine RBC Urine WBC Ur Squamous Epith Cells Urine Bacteria Urine Mucus Urine Opiates Screen NEGATIVE Urine Methadone Screen NEGATIVE Ur Barbiturates Screen NEGATIVE Ur Phencyclidine Scrn NEGATIVE Ur Amphetamines Screen NEGATIVE U Methamphetamin-MDMA NEGATIVE U Benzodiazepines Scrn NEGATIVE Urine Cocaine Screen NEGATIVE U Cannabinoids Screen NEGATIVE Ur Drug Screen Comment Ethyl Alcohol 11/18/18 11/18/18 04:35 09:38 WBC RBC Hgb Hct MCV MCH MCHC RDW RDW Differential Plt Count MPV Immature Gran % (Auto) Neut % (Auto) Lymph % (Auto) Sterling % (Auto) Eos % (Auto) Baso % (Auto) Absolute Neuts (auto) Absolute Lymphs (auto) Total Counted Differential Comment Platelet Estimate Polychromasia Hypochromasia Anisocytosis Macrocytosis PT INR APTT Specimen Type ART Sample Site L Radial pH 7.48 H Bicarbonate Actual 25.4 POC Total CO2 26 Base Excess 2 O2 Saturation 97 ABG pCO2 34.4 L ABG pO2 83 Romeo Test NA O2 Delivery Device Room Air Blood Gas Notified Whom ICU Blood Gas Notified Time 937 Sodium Potassium Chloride Carbon Dioxide Anion Gap BUN Creatinine Estim Creat Clear Calc Est GFR (MDRD) Af Amer Est GFR (MDRD) Non-Af BUN/Creatinine Ratio Glucose Calcium Total Bilirubin AST ALT Alkaline Phosphatase Troponin I Total Protein Albumin Globulin Albumin/Globulin Ratio TSH 0.86 Serum , Qual Urine Color Urine Clarity Urine pH Ur Specific [place] Urine Protein Urine Glucose (UA) Urine Ketones Urine Occult Blood Urine Nitrite Urine Bilirubin Urine Urobilinogen Ur Leukocyte Esterase Urine RBC Urine WBC Ur Squamous Epith Cells Urine Bacteria Urine Mucus Urine Opiates Screen Urine Methadone Screen Ur Barbiturates Screen Ur Phencyclidine Scrn Ur Amphetamines Screen U Methamphetamin-MDMA U Benzodiazepines Scrn Urine Cocaine Screen U Cannabinoids Screen Ur Drug Screen Comment Ethyl Alcohol POC Glucose 11/18/18 11/17/18 00:56 15:36 POC Glucose 111 H 131 H Clinical Impression(s) from Imaging Studies Brain CT 11/17/18 15:43 IMPRESSION: Normal unenhanced CT scan of the brain. Stable right ethmoid polyp or retention cyst. Electronically Signed: Myles Vieira, DO at 16:51 EST Tel , Service support , Chest X-Ray 11/17/18 15:50 IMPRESSION: No acute abnormality is present. Electronically Signed: Jonathan Garcia, at 16:03 EST , Service support , Chest X-Ray 11/17/18 23:29 IMPRESSION: No evidence of acute cardiopulmonary disease. Electronically Signed: Chadd Leigh MD at 1:28 EST Tel , Service support , Assessment/Plan All Active Problems (Last Reviewed 11/17/18 @ 23:29 by Garcia Mead MD) Altered mental status (Acute) Uncontrolled hypertension (Acute) Hypertensive urgency, malignant (Acute) Hyperkalemia (Acute) Extremity edema (Acute) Encephalopathy acute (Acute) 1. End-stage renal disease hemodialysis later today. Continue Wednesday schedule. Continue chronic orders 2. Infected right upper arm AV fistula with Serratia and Pseudomonas continue with cefepime 1 g daily. 3. Acute encephalopathy with hypertensive crisis. Continue Cardene drip. Blood pressure under better control. Neurology consulted. EEG performed. CT of the head unremarkable on admission. Patient remains confused. 4. Anemia chronic disease SHAUN and iron per chronic orders. 5. Diabetes mellitus type 2 primary care management 6. Hypertensive urgency, emergency with encephalopathy on Cardene drip. 7. History of SLE. 8. History of narcolepsy with anxiety
--- NOTE | 2018-11-18 14:33 | CON.PCM_ITS ---
Consultation - Renal 11/18/18 PCP/ Referring MD: Requesting physician: [] Primary care physician: Mitchell Bowen MD Reason for Consultation:: ESRD HD MWF, renal mgmt - History of Present Illness History of Present Illness: The patient is a 48 year old F with ESRD due to diabetes history of lupus nephritis, hypertension, diabetes mellitus type 2, anxiety disorder, narcolepsy, C. difficile colitis admitted for change in mental status. Patient is admitted to intensive care unit for further management. She was started on Cardene drip for uncontrolled hypertension. Blood pressure was 190 systolic. Currently patient is unable to provide history. She remains confused, disoriented x3. Chart reviewed. Neurology was consulted to evaluate for EEG. Outpatient EEG was essentially unremarkable. She has a history of hyperinsulinemia with frequent re-hospitalizations for altered mental status and uncontrolled hypertension with encephalopathy. She has been treated with cefepime 2 g with each dialysis for the past 2 weeks following her stage II procedure for her AV fistula by Dr. Spangler at [facility]. Wound culture obtained at the dialysis center was positive for heavy growth of Pseudomonas and Serratia. Erythema of her right upper extremity has improved. She was scheduled for wound VAC placement next week by vascular surgery. She continues to have right upper arm swelling which is chronic. She has been compliant with her hemodialysis treatments. - Allergies Allergies: Allergies LONG Inhibitors Allergy (Verified 11/08/18 12:43) Angioedema adhesive Allergy (Verified 11/08/18 12:43) Rash diphenhydramine [From Benadryl] Allergy (Verified 11/08/18 12:43) Unknown lisinopril Allergy (Verified 11/08/18 12:43) Angioedema Sulfa (Sulfonamide Antibiotics) Allergy (Verified 11/08/18 12:43) Rash sulfamethoxazole [From Bactrim] Allergy (Verified 11/08/18 12:43) Rash trimethoprim [From Bactrim] Allergy (Verified 11/08/18 12:43) Rash Angioderm Adverse Reaction (Unknown, Uncoded 10/16/18 17:14) Unknown - Current Medications Current Medications: Current Medications Atorvastatin Calcium (Lipitor) 20 mg PO QHS ENRIQUE Dextrose (D50w Syringe) 0 gm IV X1 PRN; Protocol PRN Reason: Hypoglycemia Famotidine (Pepcid) 20 mg PO DAILY ENRIQUE Glucagon () 1 mg IM .X1 PRN PRN Reason: Hypoglycemia Heparin Sodium (Porcine) () 2,500 units IV UD PRN PRN Reason: HEPARIN FLUSH Heparin Sodium (Porcine) (Heparin Na) 5,000 unit SC Q8 ENRIQUE Last Admin: 11/18/18 05:49 Dose: 5,000 unit Hydralazine HCl (Apresoline Iv) 5 mg IV Q4H PRN PRN PRN Reason: SBP GREATER THAN 170 Last Admin: 11/18/18 09:24 Dose: 5 mg [facility]xychloroquine [facility] Sodium Chloride () 250 mls @ 15 mls/hr IV .[id number] PRN PRN Reason: SALINE FLUSH Nicardipine HCl 25 mg/ Sodium (Chloride) 250 mls @ 50 mls/hr IV .Q5H [facility] Labetalol HCl (Trandate) 10 mg IV Q4H PRN PRN PRN Reason: SBP GREATER THAN 170 Last Admin: 11/18/18 06:07 Dose: 10 mg Magnesium Hydroxide (Milk Of Magnesia) 30 ml PO DAILY PRN PRN PRN Reason: Constipation Metoprolol Tartrate (Lopressor (Beta Cirilo)) 25 mg PO BID [facility] Ondansetron HCl (Zofran) 4 mg IV Q8H PRN PRN PRN Reason: NAUSEA Pred[facility]one () [facility] Sevelamer Carbonate (Renvela) 1,600 mg PO TIDCM [facility] Sodium Chloride () 5 - 15 ml IV UD PRN PRN Reason: SALINE FLUSH Last Admin: 11/18/18 06:07 Dose: 10 ml Sodium Chloride () 10 - 40 ml IV UD PRN PRN Reason: MULTILUMEN/HICMAN CATH FLUSH Sodium Chloride () 10 ml IV UD PRN PRN Reason: Dialysis Catheter Flush - Past Medical History Past Medical History (Chronic Problems): Chronic Problems (Last Reviewed 11/17/18 @ 23:29 by Garcia Mead MD) ESRD (end stage renal disease) on dialysis (Chronic) Chronic diarrhea (Chronic) Nonrheumatic mitral (valve) insufficiency (Chronic) Secondary pulmonary arterial hypertension (Chronic) Non-rheumatic tricuspid valve insufficiency (Chronic) End stage renal disease (Chronic) Chronic anemia (Chronic) Hypertension (Chronic) Narcolepsy (Chronic) Lupus nephritis (Chronic) Status post kidney and liver biopsy (fatty liver) Degenerative disc disease, cervical (Chronic) Cervical spondylosis (Chronic) Diabetes mellitus, type II (Chronic) SLE (systemic lupus erythematosus) (Chronic) - Past Surgical History Surgical History: - - failed AVF left arm, AVF right arm - Social History Marital Status: Single Smoking Status: Never smoker Alcohol: None Drugs: None - Family History Maternal Family History: Family History (Last Reviewed 11/17/18 @ 23:29 by Garcia Mead MD) Mother Hypertension Kidney disease ALS (amyotrophic lateral sclerosis) Father Heart disease Hypertension Kidney disease Diabetes History Items: Diabetes, High Cholesterol, Heart Disease, Hypertension, Renal Disease, - Paternal Family History: Family History (Last Reviewed 11/17/18 @ 23:29 by Garcia Mead MD) Mother Hypertension Kidney disease ALS (amyotrophic lateral sclerosis) Father Heart disease Hypertension Kidney disease Diabetes History Items: Diabetes, High Cholesterol, Heart Disease, Hypertension, Renal Disease Sibling Family History: Family History (Last Reviewed 11/17/18 @ 23:29 by Garcia Mead MD) Mother Hypertension Kidney disease ALS (amyotrophic lateral sclerosis) Father Heart disease Hypertension Kidney disease Diabetes History Items: Diabetes Review of Systems Unable to obtain accurate/complete ROS d/t: Patient with confusion, encephalopathy. Unable to provide history Patient Problems: Active and Suspected Problems (Last Reviewed 11/17/18 @ 23:29 by Garcia Mead MD) Altered mental status (Acute) Uncontrolled hypertension (Acute) Hypertensive urgency, malignant (Acute) - Physical Exam General: Confused, Disoriented Oral: Moist Mucosa Neck: Supple Lungs: Clear to auscultation Cardiovascular: Regular rate Abdomen: Bowel Sounds Present, Soft, Non Tender, Non-Distended Extremities: Edema - Right upper extremity edema with positive bruit, weak thrill over AV fistula. Musculoskeletal: Muscle Wasting Psych/Mental Status: - - Confused Vital Signs Temp Pulse Resp BP Pulse Ox 98.1 F 110 H 16 141/71 H 100 11/18/18 12:00 11/18/18 13:15 11/18/18 13:15 11/18/18 13:15 11/18/18 13:15 Oxygen Flow Rate (L/min) 97 Oxygen Delivery Method Room Air Weight: 71.2 kg Body Mass Index (BMI) 28.8 Finger Stick Blood Glucose 131 Intake and Output for Last 24 Hours 11/16/18 11/17/1811/18/19 23:59 23:59 23:59 Intake Total 269 / 269 Output Total 0 / 0 Balance 269 / 269 Microbiology Past 72 Hours 11/17/18 21:40 Gram Stain - Final Fistula Laboratory Tests Past 24 Hrs 11/17/18 11/17/18 11/17/18 15:30 15:30 15:45 WBC 7.7 RBC 2.84 L Hgb 9.1 L Hct 29.8 L MCV 104.9 H MCH 32.0 MCHC 30.5 L RDW 19.2 H RDW Differential 71.2 H Plt Count 268 MPV 9.5 Immature Gran % (Auto) 0.500 Neut % (Auto) 81.2 H Lymph % (Auto) 12.2 L [place] % (Auto) 5.2 Eos % (Auto) 0.6 Baso % (Auto) 0.3 Absolute Neuts (auto) 6.3 Absolute Lymphs (auto) 0.94 Total Counted Not Reportable Differential Comment Platelet Estimate ADEQUATE Polychromasia RARE Hypochromasia RARE Anisocytosis 1+ Macrocytosis 1+ PT INR APTT Specimen Type Sample Site pH Bicarbonate Actual POC Total CO2 Base Excess O2 Saturation ABG pCO2 ABG pO2 Rmoeo Test O2 Delivery Device Blood Gas Notified Whom Blood Gas Notified Time Sodium Potassium Chloride Carbon Dioxide Anion Gap BUN Creatinine Estim Creat Clear Calc Est GFR (MDRD) Af Amer Est GFR (MDRD) Non-Af BUN/Creatinine Ratio Glucose Calcium Total Bilirubin AST ALT Alkaline Phosphatase Troponin I Total Protein Albumin Globulin Albumin/Globulin Ratio TSH Serum , Qual NEGATIVE Urine Color Urine Clarity Urine pH Ur Specific [place] Urine Protein Urine Glucose (UA) Urine Ketones Urine Occult Blood Urine Nitrite Urine Bilirubin Urine Urobilinogen Ur Leukocyte Esterase Urine RBC Urine WBC Ur Squamous Epith Cells Urine Bacteria Urine Mucus Urine Opiates Screen Urine Methadone Screen Ur Barbiturates Screen Ur Phencyclidine Scrn Ur Amphetamines Screen U Methamphetamin-MDMA U Benzodiazepines Scrn Urine Cocaine Screen U Cannabinoids Screen Ur Drug Screen Comment Ethyl Alcohol 10.0 11/17/18 11/17/18 11/17/18 15:45 15:45 17:25 WBC RBC Hgb Hct MCV MCH MCHC RDW RDW Differential Plt Count MPV Immature Gran % (Auto) Neut % (Auto) Lymph % (Auto) [place] % (Auto) Eos % (Auto) Baso % (Auto) Absolute Neuts (auto) Absolute Lymphs (auto) Total Counted Differential Comment Platelet Estimate Polychromasia Hypochromasia Anisocytosis Macrocytosis PT 13.4 INR 1.0 APTT 27.9 Specimen Type Sample Site pH Bicarbonate Actual POC Total CO2 Base Excess O2 Saturation ABG pCO2 ABG pO2 [place]o Test O2 Delivery Device Blood Gas Notified Whom Blood Gas Notified Time Sodium 140 Potassium 4.4 Chloride 105 Carbon Dioxide 25.0 Anion Gap 10 BUN 44 H Creatinine 7.77 H* Estim Creat Clear Calc 7.16 Est GFR (MDRD) Af Amer 7 L Est GFR (MDRD) Non-Af 6 L BUN/Creatinine Ratio 5.7 L Glucose 156 H Calcium 9.1 Total Bilirubin 0.60 AST 25 ALT 10 L Alkaline Phosphatase 90 Troponin I 0.046 H Total Protein 7.8 Albumin 3.2 Globulin 4.6 H Albumin/Globulin Ratio 0.7 L TSH Serum , Qual Urine Color Yellow Urine Clarity Clear Urine pH 8.0 Ur Specific [place] 1.010 Urine Protein 100 H Urine Glucose (UA) 100 H Urine Ketones Negative Urine Occult Blood 10 H Urine Nitrite Negative Urine Bilirubin Negative Urine Urobilinogen Normal Ur Leukocyte Esterase Negative Urine RBC 0 SEEN Urine WBC 0 SEEN Ur Squamous Epith Cells 0 SEEN Urine Bacteria 0 SEEN Urine Mucus 0 SEEN Urine Opiates Screen Urine Methadone Screen Ur Barbiturates Screen Ur Phencyclidine Scrn Ur Amphetamines Screen U Methamphetamin-MDMA U Benzodiazepines Scrn Urine Cocaine Screen U Cannabinoids Screen Ur Drug Screen Comment Ethyl Alcohol 11/17/18 11/18/18 11/18/18 17:40 04:35 04:35 WBC 7.8 RBC 2.67 L Hgb 8.7 L Hct 28.2 L MCV 105.6 H MCH 32.6 H MCHC 30.9 L RDW 18.7 H RDW Differential 66.0 H Plt Count 273 MPV 9.5 Immature Gran % (Auto) 0.500 Neut % (Auto) 68.5 Lymph % (Auto) 20.1 [place] % (Auto) 9.5 Eos % (Auto) 1.1 Baso % (Auto) 0.3 Absolute Neuts (auto) 5.4 Absolute Lymphs (auto) 1.57 Total Counted Not Reportable Differential Comment SCANNED Platelet Estimate Polychromasia Hypochromasia Anisocytosis 2+ Macrocytosis PT INR APTT Specimen Type Sample Site pH Bicarbonate Actual POC Total CO2 Base Excess O2 Saturation ABG pCO2 ABG pO2 Romeo Test O2 Delivery Device Blood Gas Notified Whom Blood Gas Notified Time Sodium 144 Potassium 4.6 Chloride 107 Carbon Dioxide 26.0 Anion Gap 11 BUN 49 H Creatinine 8.80 H* Estim Creat Clear Calc 6.03 Est GFR (MDRD) Af Amer 6 L Est GFR (MDRD) Non-Af 5 L BUN/Creatinine Ratio 5.6 L Glucose 87 Calcium 8.9 Total Bilirubin AST ALT Alkaline Phosphatase Troponin I Total Protein Albumin Globulin Albumin/Globulin Ratio TSH Serum , Qual Urine Color Urine Clarity Urine pH Ur Specific [place] Urine Protein Urine Glucose (UA) Urine Ketones Urine Occult Blood Urine Nitrite Urine Bilirubin Urine Urobilinogen Ur Leukocyte Esterase Urine RBC Urine WBC Ur Squamous Epith Cells Urine Bacteria Urine Mucus Urine Opiates Screen NEGATIVE Urine Methadone Screen NEGATIVE Ur Barbiturates Screen NEGATIVE Ur Phencyclidine Scrn NEGATIVE Ur Amphetamines Screen NEGATIVE U Methamphetamin-MDMA NEGATIVE U Benzodiazepines Scrn NEGATIVE Urine Cocaine Screen NEGATIVE U Cannabinoids Screen NEGATIVE Ur Drug Screen Comment Ethyl Alcohol 11/18/18 11/18/18 04:35 09:38 WBC RBC Hgb Hct MCV MCH MCHC RDW RDW Differential Plt Count MPV Immature Gran % (Auto) Neut % (Auto) Lymph % (Auto) [place] % (Auto) Eos % (Auto) Baso % (Auto) Absolute Neuts (auto) Absolute Lymphs (auto) Total Counted Differential Comment Platelet Estimate Polychromasia Hypochromasia Anisocytosis Macrocytosis PT INR APTT Specimen Type ART Sample Site L Radial pH 7.48 H Bicarbonate Actual 25.4 POC Total CO2 26 Base Excess 2 O2 Saturation 97 ABG pCO2 34.4 L ABG pO2 83 Romeo Test NA O2 Delivery Device Room Air Blood Gas Notified Whom ICU Blood Gas Notified Time 937 Sodium Potassium Chloride Carbon Dioxide Anion Gap BUN Creatinine Estim Creat Clear Calc Est GFR (MDRD) Af Amer Est GFR (MDRD) Non-Af BUN/Creatinine Ratio Glucose Calcium Total Bilirubin AST ALT Alkaline Phosphatase Troponin I Total Protein Albumin Globulin Albumin/Globulin Ratio TSH 0.86 Serum , Qual Urine Color Urine Clarity Urine pH Ur Specific [place] Urine Protein Urine Glucose (UA) Urine Ketones Urine Occult Blood Urine Nitrite Urine Bilirubin Urine Urobilinogen Ur Leukocyte Esterase Urine RBC Urine WBC Ur Squamous Epith Cells Urine Bacteria Urine Mucus Urine Opiates Screen Urine Methadone Screen Ur Barbiturates Screen Ur Phencyclidine Scrn Ur Amphetamines Screen U Methamphetamin-MDMA U Benzodiazepines Scrn Urine Cocaine Screen U Cannabinoids Screen Ur Drug Screen Comment Ethyl Alcohol POC Glucose 11/18/18 11/17/18 00:56 15:36 POC Glucose 111 H 131 H Clinical Impression(s) from Imaging Studies Brain CT 11/17/18 15:43 IMPRESSION: Normal unenhanced CT scan of the brain. Stable right ethmoid polyp or retention cyst. Electronically Signed: Myles Vieira, DO at 16:51 EST Tel , Service support , Chest X-Ray 11/17/18 15:50 IMPRESSION: No acute abnormality is present. Electronically Signed: Jonathan Garcia, at 16:03 EST , Service support , Chest X-Ray 11/17/18 23:29 IMPRESSION: No evidence of acute cardiopulmonary disease. Electronically Signed: Chadd Leigh MD at 1:28 EST Tel , Service support , Assessment/Plan All Active Problems (Last Reviewed 11/17/18 @ 23:29 by Garcia Mead MD) Altered mental status (Acute) Uncontrolled hypertension (Acute) Hypertensive urgency, malignant (Acute) Hyperkalemia (Acute) Extremity edema (Acute) Encephalopathy acute (Acute) 1. End-stage renal disease hemodialysis later today. Continue Wednesday schedule. Continue chronic orders 2. Infected right upper arm AV fistula with Serratia and Pseudomonas continue with cefepime 1 g daily. 3. Acute encephalopathy with hypertensive crisis. Continue Cardene drip. Blood pressure under better control. Neurology consulted. EEG performed. CT of the head unremarkable on admission. Patient remains confused. 4. Anemia chronic disease SHAUN and iron per chronic orders. 5. Diabetes mellitus type 2 primary care management 6. Hypertensive urgency, emergency with encephalopathy on Cardene drip. 7. History of SLE. 8. History of narcolepsy with anxiety
[2018-11-18] MEDS: Hydroxychloroquine 200 MG Tablet PO ×2 (16:54→21:31)
[2018-11-18] MEDS: predniSONE 5 MG Tablet PO (16:54)
[2018-11-18] MEDS: SEVELAMER CARBONATE 800 MG TABLET 1600 MG PO (16:54)
[2018-11-18] MEDS: Metoprolol Tartrate 25 MG Tablet PO ×2 (16:55→21:31)
[2018-11-18] MEDS: Famotidine 20 MG Tablet PO (16:56)
[2018-11-18] MEDS: Atorvastatin Calcium 20 MG Tablet PO (21:32)
[2018-11-18 21:40] LABS: Bedside Glucose 109 mg/dL (70-110)
[2018-11-18 21:40] LABS: Bedside Glucose 102 mg/dL (70-110)
[2018-11-19] VITALS (16 sets, daily range): BP systolic 117–163; BP diastolic 40–105; PULSE 82–96; RESP 13–22; TEMP 36.9–37.2; O2SAT 94–100
[2018-11-19 04:34] LABS: Absolute Lymphocyte Count 2.09 X10^3/ul (0.83-4.51); Absolute Neutrophil Count 5.4 X10^3/uL (2.0-7.7); Basophil# 0.02 X10^3/uL; Basophil% 0.2 % (0-1); Eosinophil# 0.15 X10^3/uL; Eosinophils% 1.8 % (0-5); Hematocrit 27.4 % (37-47); Hemoglobin 8.6 g/dl (12.0-15.0); Lymphocyte # 2.09 X10^3/ul (4.0); Mean Corp Hgb Conc 31.4 g/gl (32-36); Mean Corpuscular Hgb 32.3 pg (27.0-32.0); Mean Platelet Vol. 9.2 fl (6.2-12.0); Monocyte# 0.69 X10^3/uL; Monocyte% 8.3 % (0-10); Neutrophil # 5.36 X10^3/uL (2.7-7.7); Neutrophil % 64.1 % (47-70); Platelet Count 229 K/mm3 (150-450); RBC Distribution Width CV 19.7 % (11.6-14.6); RBC Distribution Width SD 70.9 fl (35.1-43.9); Red Blood Count 2.66 M/mm3 (4.2-5.4); White Blood Count 8.4 K/mm3 (4.4-11.0)
[2018-11-19 04:35] LABS: Differential Indicated SCAN CRITERIA MET; POSITIVE COUNT NO; POSITIVE DIFFERENTIAL NO; POSITIVE MORPHOLOGY YES
[2018-11-19 04:48] LABS: Anion Gap 10 (5-15); BUN 21 mg/dL (7-18); Calcium,Total 8.3 mg/dL (8.5-10.1); Chloride 99 mmol/L (98-107); Creatinine, Serum 5.31 mg/dL (0.55-1.02); EST Glomerular Filtration Rate 9 mL/min (>60); Est Glom Filt Rate - Afr Amer 11 mL/min (>60); Estimated Creatinine Clearance 9.99 ml/min; Glucose 72 mg/dL (74-106); Potassium 4.2 mmol/L (3.5-5.1); Sodium Level 137 mmol/L (136-145)
[2018-11-19 05:13] LABS: Anisocytosis 1+; Differential Comment SCANNED
[2018-11-19] MEDS: Heparin Injection (Vial) 5,000 UNIT/ML VIAL 5000 UNIT SC (06:07)
[2018-11-19 06:10] LABS: Bedside Glucose 87 mg/dL (70-110)
--- NOTE | 2018-11-19 06:21 | PN_ITS ---
Subjective: The patient was seen and examined at the bedside this morning. Events from the last 24 hours have been reviewed. The patient is currently afebrile, hemodynamically stable and maintaining appropriate oxygen saturations on room air. The patient has been off of her Cardene drip since approximately 1030 last evening. Her blood pressures are currently under control. She did undergo routine hemodialysis last evening. She is now alert and appropriately interactive. She is asking if she can be discharged home today. Objective: The patient's most recent lab work, culture data and imaging studies have all been personally reviewed. MRI brain revealed moderate right maxillary ethmoid and sphenoid sinus disease. MRA head and neck were unremarkable. General: Alert, Oriented x3, Cooperative, No apparent distress HEENT: Atraumatic, PERRLA, Normocephalic Oral: No Gingival or Mucosal Lesions/ Ulcerations Neck: Supple, No Nodes, Trachea Midline Lungs: Normal air movement, No rhonchi, No wheeze, No rales Cardiovascular: Regular rate, Regular Rhythm, Normal S1, Normal S2, No murmurs Abdomen: Bowel Sounds Present, Soft, Non Tender Extremities: No clubbing, No cyanosis, No edema Skin: - - No significant change from previous Musculoskeletal: No Tenderness to Palpation of Joints or Extremities Lymphatic: No Cervical, Supraclavicular, or Inguinal Adenopathy Neurological: Cranial nerves II-XII grossly intact, Neuro grossly intact Psych/Mental Status: Flat Affect Vital Signs Temp Pulse Resp BP Pulse Ox 36.9 C 88 16 124/86 H 100 11/19/18 00:00 11/19/18 06:00 11/19/18 06:00 11/19/18 06:00 11/19/18 06:00 Oxygen Flow Rate (L/min) 97 Oxygen Delivery Method Room Air Weight: 154 lb 15.759 oz Body Mass Index (BMI) 28.8 Finger Stick Blood Glucose 131 Intake and Output for Last 24 Hours 11/17/18 11/18/18 11/19/18 23:59 23:59 23:59 Intake Total 1688.6 / 1688.6 711 / 711 Output Total 1000 / 1000 Balance 688.6 / 688.6 711 / 711 Labs (Last 48 Hours) 11/17/18 11/17/18 11/17/18 15:30 15:30 15:36 WBC RBC Hgb Hct MCV MCH MCHC RDW RDW Differential Plt Count MPV Immature Gran % (Auto) Neut % (Auto) Lymph % (Auto) [place] % (Auto) Eos % (Auto) Baso % (Auto) Absolute Neuts (auto) Absolute Lymphs (auto) Total Counted Differential Comment Platelet Estimate Polychromasia Hypochromasia Anisocytosis Macrocytosis PT INR APTT Specimen Type Sample Site pH Bicarbonate Actual POC Total CO2 Base Excess O2 Saturation ABG pCO2 ABG pO2 Romeo Test O2 Delivery Device Blood Gas Notified Whom Blood Gas Notified Time Sodium Potassium Chloride Carbon Dioxide Anion Gap BUN Creatinine Estim Creat Clear Calc Est GFR (MDRD) Af Amer Est GFR (MDRD) Non-Af BUN/Creatinine Ratio Glucose Calcium Total Bilirubin AST ALT Alkaline Phosphatase Troponin I Total Protein Albumin Globulin Albumin/Globulin Ratio TSH Serum , Qual NEGATIVE Urine Color Urine Clarity Urine pH Ur Specific [place] Urine Protein Urine Glucose (UA) Urine Ketones Urine Occult Blood Urine Nitrite Urine Bilirubin Urine Urobilinogen Ur Leukocyte Esterase Urine RBC Urine WBC Ur Squamous Epith Cells Urine Bacteria Urine Mucus Urine Opiates Screen Urine Methadone Screen Ur Barbiturates Screen Ur Phencyclidine Scrn Ur Amphetamines Screen U Methamphetamin-MDMA U Benzodiazepines Scrn Urine Cocaine Screen U Cannabinoids Screen Ur Drug Screen Comment Ethyl Alcohol 10.0 POC Glucose 131 H 11/17/18 11/17/18 11/17/18 15:45 15:45 15:45 WBC 7.7 RBC 2.84 L Hgb 9.1 L Hct 29.8 L MCV 104.9 H MCH 32.0 MCHC 30.5 L RDW 19.2 H RDW Differential 71.2 H Plt Count 268 MPV 9.5 Immature Gran % (Auto) 0.500 Neut % (Auto) 81.2 H Lymph % (Auto) 12.2 L [place] % (Auto) 5.2 Eos % (Auto) 0.6 Baso % (Auto) 0.3 Absolute Neuts (auto) 6.3 Absolute Lymphs (auto) 0.94 Total Counted Not Reportable Differential Comment Platelet Estimate ADEQUATE Polychromasia RARE Hypochromasia RARE Anisocytosis 1+ Macrocytosis 1+ PT 13.4 INR 1.0 APTT 27.9 Specimen Type Sample Site pH Bicarbonate Actual POC Total CO2 Base Excess O2 Saturation ABG pCO2 ABG pO2 Romeo Test O2 Delivery Device Blood Gas Notified Whom Blood Gas Notified Time Sodium 140 Potassium 4.4 Chloride 105 Carbon Dioxide 25.0 Anion Gap 10 BUN 44 H Creatinine 7.77 H* Estim Creat Clear Calc 7.16 Est GFR (MDRD) Af Amer 7 L Est GFR (MDRD) Non-Af 6 L BUN/Creatinine Ratio 5.7 L Glucose 156 H Calcium 9.1 Total Bilirubin 0.60 AST 25 ALT 10 L Alkaline Phosphatase 90 Troponin I 0.046 H Total Protein 7.8 Albumin 3.2 Globulin 4.6 H Albumin/Globulin Ratio 0.7 L TSH Serum , Qual Urine Color Urine Clarity Urine pH Ur Specific [place] Urine Protein Urine Glucose (UA) Urine Ketones Urine Occult Blood Urine Nitrite Urine Bilirubin Urine Urobilinogen Ur Leukocyte Esterase Urine RBC Urine WBC Ur Squamous Epith Cells Urine Bacteria Urine Mucus Urine Opiates Screen Urine Methadone Screen Ur Barbiturates Screen Ur Phencyclidine Scrn Ur Amphetamines Screen U Methamphetamin-MDMA U Benzodiazepines Scrn Urine Cocaine Screen U Cannabinoids Screen Ur Drug Screen Comment Ethyl Alcohol POC Glucose 11/17/18 11/17/18 11/18/18 17:25 17:40 00:56 WBC RBC Hgb Hct MCV MCH MCHC RDW RDW Differential Plt Count MPV Immature Gran % (Auto) Neut % (Auto) Lymph % (Auto) [place] % (Auto) Eos % (Auto) Baso % (Auto) Absolute Neuts (auto) Absolute Lymphs (auto) Total Counted Differential Comment Platelet Estimate Polychromasia Hypochromasia Anisocytosis Macrocytosis PT INR APTT Specimen Type Sample Site pH Bicarbonate Actual POC Total CO2 Base Excess O2 Saturation ABG pCO2 ABG pO2 Romeo Test O2 Delivery Device Blood Gas Notified Whom Blood Gas Notified Time Sodium Potassium Chloride Carbon Dioxide Anion Gap BUN Creatinine Estim Creat Clear Calc Est GFR (MDRD) Af Amer Est GFR (MDRD) Non-Af BUN/Creatinine Ratio Glucose Calcium Total Bilirubin AST ALT Alkaline Phosphatase Troponin I Total Protein Albumin Globulin Albumin/Globulin Ratio TSH Serum , Qual Urine Color Yellow Urine Clarity Clear Urine pH 8.0 Ur Specific [place] 1.010 Urine Protein 100 H Urine Glucose (UA) 100 H Urine Ketones Negative Urine Occult Blood 10 H Urine Nitrite Negative Urine Bilirubin Negative Urine Urobilinogen Normal Ur Leukocyte Esterase Negative Urine RBC 0 SEEN Urine WBC 0 SEEN Ur Squamous Epith Cells 0 SEEN Urine Bacteria 0 SEEN Urine Mucus 0 SEEN Urine Opiates Screen NEGATIVE Urine Methadone Screen NEGATIVE Ur Barbiturates Screen NEGATIVE Ur Phencyclidine Scrn NEGATIVE Ur Amphetamines Screen NEGATIVE U Methamphetamin-MDMA NEGATIVE U Benzodiazepines Scrn NEGATIVE Urine Cocaine Screen NEGATIVE U Cannabinoids Screen NEGATIVE Ur Drug Screen Comment Ethyl Alcohol POC Glucose 111 H 11/18/18 11/18/18 11/18/18 04:35 04:35 04:35 WBC 7.8 RBC 2.67 L Hgb 8.7 L Hct 28.2 L MCV 105.6 H MCH 32.6 H MCHC 30.9 L RDW 18.7 H RDW Differential 66.0 H Plt Count 273 MPV 9.5 Immature Gran % (Auto) 0.500 Neut % (Auto) 68.5 Lymph % (Auto) 20.1 [place] % (Auto) 9.5 Eos % (Auto) 1.1 Baso % (Auto) 0.3 Absolute Neuts (auto) 5.4 Absolute Lymphs (auto) 1.57 Total Counted Not Reportable Differential Comment SCANNED Platelet Estimate Polychromasia Hypochromasia Anisocytosis 2+ Macrocytosis PT INR APTT Specimen Type Sample Site pH Bicarbonate Actual POC Total CO2 Base Excess O2 Saturation ABG pCO2 ABG pO2 Romeo Test O2 Delivery Device Blood Gas Notified Whom Blood Gas Notified Time Sodium 144 Potassium 4.6 Chloride 107 Carbon Dioxide 26.0 Anion Gap 11 BUN 49 H Creatinine 8.80 H* Estim Creat Clear Calc 6.03 Est GFR (MDRD) Af Amer 6 L Est GFR (MDRD) Non-Af 5 L BUN/Creatinine Ratio 5.6 L Glucose 87 Calcium 8.9 Total Bilirubin AST ALT Alkaline Phosphatase Troponin I Total Protein Albumin Globulin Albumin/Globulin Ratio TSH 0.86 Serum , Qual Urine Color Urine Clarity Urine pH Ur Specific [place] Urine Protein Urine Glucose (UA) Urine Ketones Urine Occult Blood Urine Nitrite Urine Bilirubin Urine Urobilinogen Ur Leukocyte Esterase Urine RBC Urine WBC Ur Squamous Epith Cells Urine Bacteria Urine Mucus Urine Opiates Screen Urine Methadone Screen Ur Barbiturates Screen Ur Phencyclidine Scrn Ur Amphetamines Screen U Methamphetamin-MDMA U Benzodiazepines Scrn Urine Cocaine Screen U Cannabinoids Screen Ur Drug Screen Comment Ethyl Alcohol POC Glucose 11/18/18 11/18/18 11/18/18 09:38 18:03 21:36 WBC RBC Hgb Hct MCV MCH MCHC RDW RDW Differential Plt Count MPV Immature Gran % (Auto) Neut % (Auto) Lymph % (Auto) [place] % (Auto) Eos % (Auto) Baso % (Auto) Absolute Neuts (auto) Absolute Lymphs (auto) Total Counted Differential Comment Platelet Estimate Polychromasia Hypochromasia Anisocytosis Macrocytosis PT INR APTT Specimen Type ART Sample Site L Radial pH 7.48 H Bicarbonate Actual 25.4 POC Total CO2 26 Base Excess 2 O2 Saturation 97 ABG pCO2 34.4 L ABG pO2 83 Romeo Test NA O2 Delivery Device Room Air Blood Gas Notified Whom ICU MD Blood Gas Notified Time 937 Sodium Potassium Chloride Carbon Dioxide Anion Gap BUN Creatinine Estim Creat Clear Calc Est GFR (MDRD) Af Amer Est GFR (MDRD) Non-Af BUN/Creatinine Ratio Glucose Calcium Total Bilirubin AST ALT Alkaline Phosphatase Troponin I Total Protein Albumin Globulin Albumin/Globulin Ratio TSH Serum , Qual Urine Color Urine Clarity Urine pH Ur Specific [place] Urine Protein Urine Glucose (UA) Urine Ketones Urine Occult Blood Urine Nitrite Urine Bilirubin Urine Urobilinogen Ur Leukocyte Esterase Urine RBC Urine WBC Ur Squamous Epith Cells Urine Bacteria Urine Mucus Urine Opiates Screen Urine Methadone Screen Ur Barbiturates Screen Ur Phencyclidine Scrn Ur Amphetamines Screen U Methamphetamin-MDMA U Benzodiazepines Scrn Urine Cocaine Screen U Cannabinoids Screen Ur Drug Screen Comment Ethyl Alcohol POC Glucose 109 102 11/19/18 11/19/18 11/19/18 04:15 04:15 06:04 WBC 8.4 RBC 2.66 L Hgb 8.6 L Hct 27.4 L MCV 103.0 H MCH 32.3 H MCHC 31.4 L RDW 19.7 H RDW Differential 70.9 H Plt Count 229 MPV 9.2 Immature Gran % (Auto) 0.600 Neut % (Auto) 64.1 Lymph % (Auto) 25.0 [place] % (Auto) 8.3 Eos % (Auto) 1.8 Baso % (Auto) 0.2 Absolute Neuts (auto) 5.4 Absolute Lymphs (auto) 2.09 Total Counted Not Reportable Differential Comment SCANNED Platelet Estimate Polychromasia Hypochromasia Anisocytosis 1+ Macrocytosis PT INR APTT Specimen Type Sample Site pH Bicarbonate Actual POC Total CO2 Base Excess O2 Saturation ABG pCO2 ABG pO2 Romeo Test O2 Delivery Device Blood Gas Notified Whom Blood Gas Notified Time Sodium 137 Potassium 4.2 Chloride 99 Carbon Dioxide 28.0 Anion Gap 10 BUN 21 H Creatinine 5.31 H Estim Creat Clear Calc 9.99 Est GFR (MDRD) Af Amer 11 L Est GFR (MDRD) Non-Af 9 L BUN/Creatinine Ratio 4.0 L Glucose 72 L Calcium 8.3 L Total Bilirubin AST ALT Alkaline Phosphatase Troponin I Total Protein Albumin Globulin Albumin/Globulin Ratio TSH Serum , Qual Urine Color Urine Clarity Urine pH Ur Specific [place] Urine Protein Urine Glucose (UA) Urine Ketones Urine Occult Blood Urine Nitrite Urine Bilirubin Urine Urobilinogen Ur Leukocyte Esterase Urine RBC Urine WBC Ur Squamous Epith Cells Urine Bacteria Urine Mucus Urine Opiates Screen Urine Methadone Screen Ur Barbiturates Screen Ur Phencyclidine Scrn Ur Amphetamines Screen U Methamphetamin-MDMA U Benzodiazepines Scrn Urine Cocaine Screen U Cannabinoids Screen Ur Drug Screen Comment Ethyl Alcohol POC Glucose 87 Microbiology 11/17/18 21:40 Fistula Gram Stain - Final Clinical Impression(s) from Imaging Studies Brain CT 11/17/18 15:43 IMPRESSION: Normal unenhanced CT scan of the brain. Stable right ethmoid polyp or retention cyst. Electronically Signed: Myles Vieira DO at 16:51 EST Tel , Service support , Chest X-Ray 11/17/18 15:50 IMPRESSION: No acute abnormality is present. Electronically Signed: Jonathan Garcia at 16:03 EST , Service support , Chest X-Ray 11/17/18 23:29 IMPRESSION: No evidence of acute cardiopulmonary disease. Electronically Signed: Chadd Leigh MD at 1:28 EST Tel , Service support , Brain MRI 11/18/18 08:52 IMPRESSION: Normal unenhanced MRI of the brain Moderate right maxillary ethmoid and sphenoid sinus disease. Electronically Signed: Diogo Hoffmann MD at 16:19 EST , Service support , Head MRA 11/18/18 08:52 IMPRESSION: Normal MRA of the head Electronically Signed: Diogo Hoffmann MD at 16:20 EST , Service support , Neck MRA 11/18/18 08:52 IMPRESSION: Normal bilateral cervical carotid and vertebral arteries. Electronically Signed: Diogo Hoffmann MD at 16:50 EST , Service support , Medical Necessity - Tobacco Use Smoking Status: Never smoker Assessment/Plan All Active Problems (Last Reviewed 11/17/18 @ 23:29 by Garcia Mead MD) Altered mental status (Acute) Uncontrolled hypertension (Acute) Hypertensive urgency, malignant (Acute) Hyperkalemia (Acute) Extremity edema (Acute) Encephalopathy acute (Acute) RECOMMENDATIONS: 1. Continue routine hemodialysis sessions per nephrology. 2. I would avoid stimulant medications in the future, given the patient's underlying hypertension. 3. Continue metoprolol and as needed antihypertensives 4. Encourage incentive spirometer use while in bed and mobilize patient as tolerated. IMPRESSIONS: 1. Encephalopathy Resolved at this time. Most likely metabolic in nature and potentially related to the patient's presenting elevated blood pressures. Her mentation has essentially returned back to baseline without any significant intervention. She did undergo hemodialysis yesterday. Her blood pressures are currently under control and she is no longer requiring nicardipine. All of the patient's neurologic workup has been negative. 2. Hypertensive urgency Resolved. Although the patient did initially require nicardipine to stabilize her hemodynamics, she has since been weaned from the continuous drip. Her blood pressures are currently stable on her outpatient metoprolol. Recommend permanent discontinuation of her stimulant home medications. 3. 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 We will plan to continue the patient's baseline outpatient lupus medications. This note was generated with better.ation software. It may contain incorrect words, spelling, and punctuation that were not noted in checking the note before signing. DISPOSITION: The patient is medically stable for transfer out of the intensive care unit. Given the patient's lack of ongoing ICU/pulmonary needs, will sign off. Please call with any additional questions. Code Visit Inpatient E&M: 27614 Subs Hosp L2
--- NOTE | 2018-11-19 08:43 | PCM.PN.HOSP ---
Patient Problems: Active and Suspected Problems (Last Reviewed 11/17/18 @ 23:29 by Garcia Mead MD) Altered mental status (Acute) Uncontrolled hypertension (Acute) Hypertensive urgency, malignant (Acute) Subjective: Appears to be back to baseline, denies any chest pain or shortness of breath. She is not confused and is exactly where she is. Vitals/I&O's: Vital Signs Temp Pulse Resp BP Pulse Ox 98.5 F 92 21 H 136/96 H 100 11/19/18 00:00 11/19/18 07:37 11/19/18 07:37 11/19/18 07:37 11/19/18 07:37 Oxygen Flow Rate (L/min) 97 Oxygen Delivery Method Room Air Weight: 154 lb 15.759 oz Body Mass Index (BMI) 28.8 Finger Stick Blood Glucose 131 Intake and Output for Last 24 Hours 11/17/18 11/18/18 11/19/18 23:59 23:59 23:59 Intake Total 1688.6 / 1688.6 711 / 711 Output Total 1000 / 1000 Balance 688.6 / 688.6 711 / 711 General: Alert, orientedx3, cooperative, No apparent distress HEENT: Atraumatic, PERRLA, EOMI, Normocephalic Oral: Dry Mucosa Neck: Supple, No JVD, Trachea Midline Lungs: Clear to auscultation, Normal air movement, No rhonchi, No wheeze, No rales Cardiovascular: Regular rate, Regular Rhythm, Normal S1, Normal S2, No murmurs Abdomen: Soft, Non Tender, Non-Distended, No Hepato-splenomegaly Extremities: No edema, Capillary Refill Less than 3 Seconds Skin: Ulcer/ Wound - RUE, dressing intact, - - Dialysis catheter present in the right chest Neurological: Neuro grossly intact, sensation intact Psych/Mental Status: Normal affect, appropriate Microbiology Past 72 Hours 11/17/18 21:40 Fistula Gram Stain - Final 11/17/18 21:40 Fistula Wound Culture - Preliminary Gram negative chiquita Laboratory Results 11/18/18 04:35: TSH 0.86 11/18/18 09:38: Specimen Type ART, Sample Site L Radial, pH 7.48 H, Bicarbonate Actual 25.4, POC Total CO2 26, Base Excess 2, O2 Saturation 97, ABG pCO2 34.4 L, ABG pO2 83, Romeo Test NA, O2 Delivery Device Room Air, Blood Gas Notified Whom ICU MD, Blood Gas Notified Time 937 11/18/18 18:03: POC Glucose 109 11/18/18 21:36: POC Glucose 102 11/19/18 04:15: WBC 8.4, RBC 2.66 L, Hgb 8.6 L, Hct 27.4 L, MCV 103.0 H, MCH 32.3 H, MCHC 31.4 L, RDW 19.7 H, RDW Differential 70.9 H, Plt Count 229, MPV 9.2, Immature Gran % (Auto) 0.600, Neut % (Auto) 64.1, Lymph % (Auto) 25.0, [place] % (Auto) 8.3, Eos % (Auto) 1.8, Baso % (Auto) 0.2, Absolute Neuts (auto) 5.4, Absolute Lymphs (auto) 2.09, Total Counted Not Reportable, Differential Comment SCANNED, Anisocytosis 1+ 11/19/18 04:15: Sodium 137, Potassium 4.2, Chloride 99, Carbon Dioxide 28.0, Anion Gap 10, BUN 21 H, Creatinine 5.31 H, Estim Creat Clear Calc 9.99, Est GFR (MDRD) Af Amer 11 L, Est GFR (MDRD) Non-Af 9 L, BUN/Creatinine Ratio 4.0 L, Glucose 72 L, Calcium 8.3 L 11/19/18 06:04: POC Glucose 87 Current Medications Atorvastatin Calcium (Lipitor) 20 mg PO QHS COUNT INCLUDES THE [facility] Last Admin: 11/18/18 21:32 Dose: 20 mg Dextrose (D50w Syringe) 0 gm IV X1 PRN; Protocol PRN Reason: Hypoglycemia Famotidine (Pepcid) 20 mg PO DAILY COUNT INCLUDES THE [facility] Last Admin: 11/18/18 16:56 Dose: 20 mg Glucagon () 1 mg IM .X1 PRN PRN Reason: Hypoglycemia Heparin Sodium (Porcine) () 2,500 units IV UD PRN PRN Reason: HEPARIN FLUSH Heparin Sodium (Porcine) (Heparin Na) 5,000 unit SC Q8 COUNT INCLUDES THE [facility] Last Admin: 11/19/18 06:07 Dose: 5,000 unit Hydralazine HCl (Apresoline Iv) 5 mg IV Q4H PRN PRN PRN Reason: SBP GREATER THAN 170 Last Admin: 11/18/18 09:24 Dose: 5 mg [facility]xychloroquine S[facility]ate ([facility]il) [facility] Last Admin: 11/18/18 21:31 Dose: 200 mg Sodium Chloride () 250 mls @ 15 mls/hr IV .[id number] PRN PRN Reason: SALINE FLUSH Nicardipine HCl 25 mg/ Sodium (Chloride) 250 mls @ 50 mls/hr IV .Q5H COUNT INCLUDES THE [facility] Last Admin: 11/19/18 02:26 Dose: Not Given Labetalol HCl (Trandate) 10 mg IV Q4H PRN PRN PRN Reason: SBP GREATER THAN 170 Last Admin: 11/18/18 06:07 Dose: 10 mg Magnesium Hydroxide (Milk Of Magnesia) 30 ml PO DAILY PRN PRN PRN Reason: Constipation Metoprolol Tartrate (Lopressor (Beta Cirilo)) 25 mg PO BID COUNT INCLUDES THE [facility] Last Admin: 11/18/18 21:31 Dose: 25 mg Ondansetron HCl (Zofran) 4 mg IV Q8H PRN PRN PRN Reason: NAUSEA Prednisone () [facility] Last Admin: 11/18/18 16:54 Dose: 5 mg Sevelamer Carbonate (Renvela) [facility] Last Admin: 11/18/18 16:55 Dose: Not Given Sodium Chloride () 5 - 15 ml IV UD PRN PRN Reason: SALINE FLUSH Last Admin: 11/18/18 06:07 Dose: 10 ml Sodium Chloride () 10 - 40 ml IV UD PRN PRN Reason: MULTILUMEN/HICMAN CATH FLUSH Sodium Chloride () 10 ml IV UD PRN PRN Reason: Dialysis Catheter Flush Medical Necessity - Tobacco Use Smoking Status: Never smoker Assessment/Plan All Active Problems (Last Reviewed 11/17/18 @ 23:29 by Garcia Mead MD) Altered mental status (Acute) Uncontrolled hypertension (Acute) Hypertensive urgency, malignant (Acute) Hyperkalemia (Acute) Extremity edema (Acute) Encephalopathy acute (Acute) 1. Acute metabolic encephalopathy/end-stage renal disease Judah to lupus nephritis/hypertensive urgency/HLD -Underwent dialysis yesterday note that her blood pressure is under control her encephalopathy has resolved -We will transfer out of the ICU, and will transition her metoprolol to Coreg 6.25 twice daily for better blood pressure control -UDS was negative -Cultures are pending from the wound and blood in her right upper extremity, preliminary Gram stain is negative for organisms, however wound culture has gram-negative growth, continue with cefepime 1 g every 24, will need a wound VAC placed next week by vascular surgery -Stop the nicardipine -With dialysis her Plaquenil for her lupus was prednisone -Continue with Lipitor 2. DM 2 with neuropathy -Not appear to be on any outpatient medications -Continue with sliding scale insulin and Accu-Cheks -Lyrica for her neuropathy 3. GERD -Stable -Continue with Pepcid 4. Depression -She is on Cymbalta and Remeron as an outpatient which were held DVT: Heparin Code Visit Inpatient E&M: 23830 Subs Hosp L2
--- NOTE | 2018-11-19 08:46 | PN_ITS ---
Patient Problems: Active and Suspected Problems (Last Reviewed 11/17/18 @ 23:29 by Garcia Mead MD) Altered mental status (Acute) Uncontrolled hypertension (Acute) Hypertensive urgency, malignant (Acute) Subjective: Appears to be back to baseline, denies any chest pain or shortness of breath. She is not confused and is exactly where she is. Vitals/I&O's: Vital Signs Temp Pulse Resp BP Pulse Ox 98.5 F 92 21 H 136/96 H 100 11/19/18 00:00 11/19/18 07:37 11/19/18 07:37 11/19/18 07:37 11/19/18 07:37 Oxygen Flow Rate (L/min) 97 Oxygen Delivery Method Room Air Weight: 154 lb 15.759 oz Body Mass Index (BMI) 28.8 Finger Stick Blood Glucose 131 Intake and Output for Last 24 Hours 11/17/18 11/18/18 11/19/18 23:59 23:59 23:59 Intake Total 1688.6 / 1688.6 711 / 711 Output Total 1000 / 1000 Balance 688.6 / 688.6 711 / 711 General: Alert, orientedx3, cooperative, No apparent distress HEENT: Atraumatic, PERRLA, EOMI, Normocephalic Oral: Dry Mucosa Neck: Supple, No JVD, Trachea Midline Lungs: Clear to auscultation, Normal air movement, No rhonchi, No wheeze, No rales Cardiovascular: Regular rate, Regular Rhythm, Normal S1, Normal S2, No murmurs Abdomen: Soft, Non Tender, Non-Distended, No Hepato-splenomegaly Extremities: No edema, Capillary Refill Less than 3 Seconds Skin: Ulcer/ Wound - RUE, dressing intact, - - Dialysis catheter present in the right chest Neurological: Neuro grossly intact, sensation intact Psych/Mental Status: Normal affect, appropriate Microbiology Past 72 Hours 11/17/18 21:40 Fistula Gram Stain - Final 11/17/18 21:40 Fistula Wound Culture - Preliminary Gram negative chiquita Laboratory Results 11/18/18 04:35: TSH 0.86 11/18/18 09:38: Specimen Type ART, Sample Site L Radial, pH 7.48 H, Bicarbonate Actual 25.4, POC Total CO2 26, Base Excess 2, O2 Saturation 97, ABG pCO2 34.4 L, ABG pO2 83, Romeo Test NA, O2 Delivery Device Room Air, Blood Gas Notified Whom ICU MD, Blood Gas Notified Time 937 11/18/18 18:03: POC Glucose 109 11/18/18 21:36: POC Glucose 102 11/19/18 04:15: WBC 8.4, RBC 2.66 L, Hgb 8.6 L, Hct 27.4 L, MCV 103.0 H, MCH 32.3 H, MCHC 31.4 L, RDW 19.7 H, RDW Differential 70.9 H, Plt Count 229, MPV 9.2, Immature Gran % (Auto) 0.600, Neut % (Auto) 64.1, Lymph % (Auto) 25.0, [place] % (Auto) 8.3, Eos % (Auto) 1.8, Baso % (Auto) 0.2, Absolute Neuts (auto) 5.4, Absolute Lymphs (auto) 2.09, Total Counted Not Reportable, Differential Comment SCANNED, Anisocytosis 1+ 11/19/18 04:15: Sodium 137, Potassium 4.2, Chloride 99, Carbon Dioxide 28.0, Anion Gap 10, BUN 21 H, Creatinine 5.31 H, Estim Creat Clear Calc 9.99, Est GFR (MDRD) Af Amer 11 L, Est GFR (MDRD) Non-Af 9 L, BUN/Creatinine Ratio 4.0 L, Glucose 72 L, Calcium 8.3 L 11/19/18 06:04: POC Glucose 87 Current Medications Atorvastatin Calcium (Lipitor) 20 mg PO QHS [facility] Last Admin: 11/18/18 21:32 Dose: 20 mg Dextrose (D50w Syringe) 0 gm IV X1 PRN; Protocol PRN Reason: Hypoglycemia Famotidine (Pepcid) 20 mg PO DAILY [facility] Last Admin: 11/18/18 16:56 Dose: 20 mg Glucagon () 1 mg IM .X1 PRN PRN Reason: Hypoglycemia Heparin Sodium (Porcine) () 2,500 units IV UD PRN PRN Reason: HEPARIN FLUSH Heparin Sodium (Porcine) (Heparin Na) 5,000 unit SC Q8 [facility] Last Admin: 11/19/18 06:07 Dose: 5,000 unit Hydralazine HCl (Apresoline Iv) 5 mg IV Q4H PRN PRN PRN Reason: SBP GREATER THAN 170 Last Admin: 11/18/18 09:24 Dose: 5 mg [facility]oquine [facility] ([facility]) [facility] Admin: 11/18/18 21:31 Dose: 200 mg Sodium Chloride () 250 mls @ 15 mls/hr IV .[id number] PRN PRN Reason: SALINE FLUSH Nicardipine HCl 25 mg/ Sodium (Chloride) 250 mls @ 50 mls/hr IV .Q5H [facility] Last Admin: 11/19/18 02:26 Dose: Not Given Labetalol HCl (Trandate) 10 mg IV Q4H PRN PRN PRN Reason: SBP GREATER THAN 170 Last Admin: 11/18/18 06:07 Dose: 10 mg Magnesium Hydroxide (Milk Of Magnesia) 30 ml PO DAILY PRN PRN PRN Reason: Constipation Metoprolol Tartrate (Lopressor (Beta Cirilo)) 25 mg PO BID [facility] Last Admin: 11/18/18 21:31 Dose: 25 mg Ondansetron HCl (Zofran) 4 mg IV Q8H PRN PRN PRN Reason: NAUSEA Prednisone () [facility] Last Admin: 11/18/18 16:54 Dose: 5 mg Sevelamer Carbonate (Renvela) [facility] [place] Admin: 11/18/18 16:55 Dose: Not Given Sodium Chloride () 5 - 15 ml IV UD PRN PRN Reason: SALINE FLUSH Last Admin: 11/18/18 06:07 Dose: 10 ml Sodium Chloride () 10 - 40 ml IV UD PRN PRN Reason: MULTILUMEN/HICMAN CATH FLUSH Sodium Chloride () 10 ml IV UD PRN PRN Reason: Dialysis Catheter Flush Medical Necessity - Tobacco Use Smoking Status: Never smoker Assessment/Plan All Active Problems (Last Reviewed 11/17/18 @ 23:29 by Garcia Mead MD) Altered mental status (Acute) Uncontrolled hypertension (Acute) Hypertensive urgency, malignant (Acute) Hyperkalemia (Acute) Extremity edema (Acute) Encephalopathy acute (Acute) 1. Acute metabolic encephalopathy/end-stage renal disease Judah to lupus nephritis/hypertensive urgency/HLD -Underwent dialysis yesterday note that her blood pressure is under control her encephalopathy has resolved -We will transfer out of the ICU, and will transition her metoprolol to Coreg 6.25 twice daily for better blood pressure control -UDS was negative -Cultures are pending from the wound and blood in her right upper extremity, preliminary Gram stain is negative for organisms, however wound culture has gram-negative growth, continue with cefepime 1 g every 24, will need a wound VAC placed next week by vascular surgery -Stop the nicardipine -With dialysis her Plaquenil for her lupus was prednisone -Continue with Lipitor 2. DM 2 with neuropathy -Not appear to be on any outpatient medications -Continue with sliding scale insulin and Accu-Cheks -Lyrica for her neuropathy 3. GERD -Stable -Continue with Pepcid 4. Depression -She is on Cymbalta and Remeron as an outpatient which were held DVT: Heparin Code Visit Inpatient E&M: 42020 Subs Hosp L2
[2018-11-19] MEDS: Hydroxychloroquine 200 MG Tablet PO (08:47)
[2018-11-19] MEDS: predniSONE 5 MG Tablet PO (08:47)
[2018-11-19] MEDS: Famotidine 20 MG Tablet PO (08:48)
[2018-11-19] MEDS: Metoprolol Tartrate 25 MG Tablet PO (08:48)
[2018-11-19] MEDS: SEVELAMER CARBONATE 800 MG TABLET 1600 MG PO (08:48)
--- NOTE | 2018-11-19 10:01 | PCM.PN.REN ---
Patient Problems: Active and Suspected Problems (Last Reviewed 11/17/18 @ 23:29 by Garcia Mead MD) Altered mental status (Acute) Uncontrolled hypertension (Acute) Hypertensive urgency, malignant (Acute) Subjective: Mental status back to baseline. Patient more alert, awake and responding appropriately today. BP under better control of Cardene drip. - Physical Exam General: Alert, Oriented x3, Cooperative, No apparent distress Oral: Moist Mucosa Neck: Supple Lungs: Clear to auscultation Cardiovascular: Regular rate Abdomen: Bowel Sounds Present, Soft, Non Tender, Non-Distended Extremities: No edema Psych/Mental Status: Alert and oriented to time, place, person, mood and affect Vital Signs Temp Pulse Resp BP Pulse Ox 98.5 F 93 21 H 156/88 H 100 11/19/18 00:00 11/19/18 08:48 11/19/18 07:37 11/19/18 08:48 11/19/18 07:37 Oxygen Flow Rate (L/min) 97 Oxygen Delivery Method Room Air Weight: 70.3 kg Body Mass Index (BMI) 28.8 Finger Stick Blood Glucose 131 Intake and Output for Last 24 Hours 11/17/18 11/18/18 11/19/18 23:59 23:59 23:59 Intake Total 1688.6 / 1688.6 711 / 711 Output Total 1000 / 1000 Balance 688.6 / 688.6 711 / 711 Microbiology Past 72 Hours 11/17/18 21:40 Gram Stain - Final Fistula Wound Culture - Preliminary Gram negative chiquita Laboratory Tests Past 24 Hrs 11/19/18 11/19/18 04:15 04:15 WBC 8.4 RBC 2.66 L Hgb 8.6 L Hct 27.4 L MCV 103.0 H MCH 32.3 H MCHC 31.4 L RDW 19.7 H RDW Differential 70.9 H Plt Count 229 MPV 9.2 Immature Gran % (Auto) 0.600 Neut % (Auto) 64.1 Lymph % (Auto) 25.0 [place] % (Auto) 8.3 Eos % (Auto) 1.8 Baso % (Auto) 0.2 Absolute Neuts (auto) 5.4 Absolute Lymphs (auto) 2.09 Total Counted Not Reportable Differential Comment SCANNED Anisocytosis 1+ Sodium 137 Potassium 4.2 Chloride 99 Carbon Dioxide 28.0 Anion Gap 10 BUN 21 H Creatinine 5.31 H Estim Creat Clear Calc 9.99 Est GFR (MDRD) Af Amer 11 L Est GFR (MDRD) Non-Af 9 L BUN/Creatinine Ratio 4.0 L Glucose 72 L Calcium 8.3 L POC Glucose 11/19/18 11/18/18 11/18/18 06:04 21:36 18:03 POC Glucose 87 102 109 Medical Necessity - Tobacco Use Smoking Status: Never smoker Assessment/Plan All Active Problems (Last Reviewed 11/17/18 @ 23:29 by Garcia Mead MD) Altered mental status (Acute) Uncontrolled hypertension (Acute) Hypertensive urgency, malignant (Acute) Hyperkalemia (Acute) Extremity edema (Acute) Encephalopathy acute (Acute) 1. End-stage renal disease hemodialysis Wednesday. Okay to DC from kidney standpoint. 2. Infected right upper arm AV fistula with Serratia and Pseudomonas continue with cefepime 1 g daily. 3. Acute encephalopathy with hypertensive crisis. Blood pressure under better control. Mental status back to baseline 4. Anemia chronic disease SHAUN and iron per chronic orders. 5. Diabetes mellitus type 2 primary care management 6. Hypertensive urgency, emergency with encephalopathy BP stable 7. History of SLE. 8. History of narcolepsy with anxiety Discussed with hospitalist
--- NOTE | 2018-11-19 10:34 | DCINST_ITS ---
- Discharge Diagnoses Current Active Problems: Current Active and Chronic Problems (Last Reviewed 11/17/18 @ 23:29 by Garcia Mead MD) Altered mental status (Acute) Uncontrolled hypertension (Acute) Hypertensive urgency, malignant (Acute) ESRD (end stage renal disease) on dialysis (Chronic) You will use the following diet at home:: Renal (restricted protein/sodium) Your food should be the consistency of: Regular Your liquids should be the consistency of: Regular/Thin Discharge Activity: Return to Normal Activity, No Restrictions Call your doctor if you observe: Fever of 101 or Higher, Shortness of breath, Di zziness, Fainting spells, Swelling in the ankles, Chest pain, Increased palpitations (irregular heartbeat) Allergies/Adverse Reactions: Allergies LONG Inhibitors Allergy (Verified 11/08/18 12:43) Angioedema adhesive Allergy (Verified 11/08/18 12:43) Rash diphenhydramine [From Benadryl] Allergy (Verified 11/08/18 12:43) Unknown lisinopril Allergy (Verified 11/08/18 12:43) Angioedema Sulfa (Sulfonamide Antibiotics) Allergy (Verified 11/08/18 12:43) Rash sulfamethoxazole [From Bactrim] Allergy (Verified 11/08/18 12:43) Rash trimethoprim [From Bactrim] Allergy (Verified 11/08/18 12:43) Rash Angioderm Adverse Reaction (Unknown, Uncoded 10/16/18 17:14) Unknown Medications to take at Discharge Duloxetine Hcl [Cymbalta] 120 mg PO DAILY 10/01/16 Hydroxychloroquine [Plaquenil] 200 mg PO BIDCM 10/01/16 Atorvastatin Calcium [Lipitor] 20 mg PO QHS 01/20/18 Pregabalin [Lyrica] 75 mg PO BID 08/12/18 Sevelamer Carbonate [Renvela] 1,600 mg PO TIDCM 08/12/18 Fluticasone 0.05% [Flonase Nasal [place]] 2 spray NASAL DAILY 09/09/18 Metoprolol Tartrate [Lopressor (beta pippa)] 25 mg PO BID 09/09/18 Prednisone 5 mg PO DAILY 09/09/18 Lorazepam [Ativan] 1 mg PO DAILY PRN PRN 10/10/18 Cevimeline HCl 30 mg PO BID 11/17/18 Clindamycin Phos/Benzoyl Perox [Clinda-Benzoyl Perox 1-5% Pump] 1 applic TP BID 11/17/18 Mirtazapine 7.5 mg PO QHS 11/17/18 Ranitidine HCl 150 mg PO DAILY 11/17/18 Sucroferric Oxyhydroxide [Velphoro] 500 mg PO TIDCM 11/17/18 Primary Care Physician: Mitchell Bowen Chi, MD [Primary Care Provider] - Please follow up with your Primary Care Physician in: 3-5 days Test Results: Test results from this visit will be discussed in further detail at your follow- up appointment, if applicable. Please Follow Up With: Arline Ambriz DO
--- NOTE | 2018-11-19 10:47 | PCM.DC.SUM ---
Discharge Date and Diagnosis - Problem List Patient Problems: Active and Suspected Problems (Last Reviewed 11/17/18 @ 23:29 by Garcia Mead MD) Altered mental status (Acute) Uncontrolled hypertension (Acute) Hypertensive urgency, malignant (Acute) Date of Admission: 11/17/18 Date of Discharge: 11/19/18 - Primary Discharge Diagnosis Active and Suspected Problems (Last Reviewed 11/17/18 @ 23:29 by Garcia Mead MD) Altered mental status (Acute) Uncontrolled hypertension (Acute) Hypertensive urgency, malignant (Acute) - Secondary Discharge Diagnosis Chronic Problems (Last Reviewed 11/17/18 @ 23:29 by Garcia Mead MD) ESRD (end stage renal disease) on dialysis (Chronic) Chronic diarrhea (Chronic) Nonrheumatic mitral (valve) insufficiency (Chronic) Secondary pulmonary arterial hypertension (Chronic) Non-rheumatic tricuspid valve insufficiency (Chronic) End stage renal disease (Chronic) Chronic anemia (Chronic) Hypertension (Chronic) Narcolepsy (Chronic) Lupus nephritis (Chronic) Status post kidney and liver biopsy (fatty liver) Degenerative disc disease, cervical (Chronic) Cervical spondylosis (Chronic) Diabetes mellitus, type II (Chronic) SLE (systemic lupus erythematosus) (Chronic) Hospital Course and Treatment Imaging Results: CT Brain: IMPRESSION: Normal unenhanced CT scan of the brain. Stable right ethmoid polyp or retention cyst. CXR: IMPRESSION: No acute abnormality is present. MRI Brain: IMPRESSION: Normal unenhanced MRI of the brain Moderate right maxillary ethmoid and sphenoid sinus disease. MRA Head: IMPRESSION: Normal MRA of the head MRA Neck: IMPRESSION: Normal bilateral cervical carotid and vertebral arteries. Consults: Nephrology Neurology ICU Operations: None Procedures: None Summary of Care Provided: Per HPI: The patient is a 48 year old F with a significant history of narcolepsy; end-stage renal disease; MRSA and C. difficile infection; previous episodes of encephalopathy who presented to the emergency department because of altered mental status. At the time of my examination patient obtunded so history was taken from emergency department. Per Emergency department patient's brother brought the patient to the emergency department and left. Emergency department doctor initially patient was responding only to sternal rub evaluate as she was responding to verbal stimuli. At the time of my examination patient was nodding inappropriately to all verbal conversations. Her blood pressure was noted to be severely elevated for which patient was given labetalol IV and later also started on a Cardene drip and transferred to intensive care unit. Hospital Course: 1. Acute metabolic encephalopathy/end-stage renal disease secondary to lupus nephritis/hypertensive urgency/LSN-78-puad-old female who is on dialysis Wednesday presented with acute metabolic encephalopathy and hypertensive urgency. In discussion with her base cloth inspector, to follow-up with the occurs whenever she becomes significantly hypertensive, and she did receive dialysis on Wednesday. She has been very well controlled recently however she did become a little bit ill over this last week and we think she may not have taken all of her blood pressure medications. Because she has been controlled as an outpatient at dialysis, will not make any changes to her blood pressure medications. Neurology was consult for evaluation of her encephalopathy and proceeded with imaging of her head and neck for possible stroke which came back negative. She does have a chronic wound on her right upper extremity and there is a VAC going to be placed next week by vascular surgery. On the day of discharge her encephalopathy has completely resolved and her blood pressure is back to baseline with continuation of her chronic medication. She will need to follow-up with her primary care doctor next week, and she has dialysis scheduled for Wednesday of next week as well. 2. Her other medical diagnoses were evaluated and her home medications were continued where appropriate Patient Problems: Active and Suspected Problems (Last Reviewed 11/17/18 @ 23:29 by Garcia Mead MD) Altered mental status (Acute) Uncontrolled hypertension (Acute) Hypertensive urgency, malignant (Acute) - Physical Exam Vital Signs Temp Pulse Resp BP Pulse Ox 98.5 F 93 21 H 156/88 H 100 11/19/18 00:00 11/19/18 08:48 11/19/18 07:37 11/19/18 08:48 11/19/18 07:37 Oxygen Flow Rate (L/min) 97 Oxygen Delivery Method Room Air Weight: 154 lb 15.759 oz Body Mass Index (BMI) 28.8 Finger Stick Blood Glucose 131 Intake and Output for Last 24 Hours 11/17/18 11/18/18 11/19/18 23:59 23:59 23:59 Intake Total 1688.6 / 1688.6 711 / 711 Output Total 1000 / 1000 Balance 688.6 / 688.6 711 / 711 Microbiology Past 72 Hours 11/17/18 21:40 Gram Stain - Final Fistula Wound Culture - Preliminary Gram negative chiquita Laboratory Tests Past 24 Hrs 11/19/18 11/19/18 04:15 04:15 WBC 8.4 RBC 2.66 L Hgb 8.6 L Hct 27.4 L MCV 103.0 H MCH 32.3 H MCHC 31.4 L RDW 19.7 H RDW Differential 70.9 H Plt Count 229 MPV 9.2 Immature Gran % (Auto) 0.600 Neut % (Auto) 64.1 Lymph % (Auto) 25.0 [place] % (Auto) 8.3 Eos % (Auto) 1.8 Baso % (Auto) 0.2 Absolute Neuts (auto) 5.4 Absolute Lymphs (auto) 2.09 Total Counted Not Reportable Differential Comment SCANNED Anisocytosis 1+ Sodium 137 Potassium 4.2 Chloride 99 Carbon Dioxide 28.0 Anion Gap 10 BUN 21 H Creatinine 5.31 H Estim Creat Clear Calc 9.99 Est GFR (MDRD) Af Amer 11 L Est GFR (MDRD) Non-Af 9 L BUN/Creatinine Ratio 4.0 L Glucose 72 L Calcium 8.3 L POC Glucose 11/19/18 11/18/18 11/18/18 06:04 21:36 18:03 POC Glucose 87 102 109 Discharge Activity: Return to Normal Activity, No Restrictions Call your doctor if you observe: Fever of 101 or Higher, Shortness of breath, Dizziness, Fainting spells, Swelling in the ankles, Chest pain, Increased palpitations (irregular heartbeat) Home Medications: Medications to take at Discharge Duloxetine Hcl [Cymbalta] 120 mg PO DAILY 10/01/16 Hydroxychloroquine [Plaquenil] 200 mg PO BIDCM 10/01/16 Atorvastatin Calcium [Lipitor] 20 mg PO QHS 01/20/18 Pregabalin [Lyrica] 75 mg PO BID 08/12/18 Sevelamer Carbonate [Renvela] 1,600 mg PO TIDCM 08/12/18 Fluticasone 0.05% [Flonase Nasal [place]] 2 spray NASAL DAILY 09/09/18 Metoprolol Tartrate [Lopressor (beta pippa)] 25 mg PO BID 09/09/18 Prednisone 5 mg PO DAILY 09/09/18 Lorazepam [Ativan] 1 mg PO DAILY PRN PRN 10/10/18 Cevimeline HCl 30 mg PO BID 11/17/18 Clindamycin Phos/Benzoyl Perox [Clinda-Benzoyl Perox 1-5% Pump] 1 applic TP BID 11/17/18 Mirtazapine 7.5 mg PO QHS 11/17/18 Ranitidine HCl 150 mg PO DAILY 11/17/18 Sucroferric Oxyhydroxide [Velphoro] 500 mg PO TIDCM 11/17/18 Primary Care Physician: Mitchell Bowen Chi, MD [Primary Care Provider] - Please follow up with your Primary Care Physician in: 3-5 days Please Follow Up With: Arline Ambriz DO Disposition: Home Minutes spent on discharge:: 35 Patient Condition:: Good Medical Necessity - Tobacco Use Smoking Status: Never smoker Meaningful Use Info Meaningful Use Diagnoses (Choose all that apply): None applicable Code Visit Inpatient E&M: 90333 Disch Hosp
--- NOTE | 2018-11-19 11:10 | CASEMGMT ---
Pt is alert and oriented today. SW spoke w/pt briefly in regard to completing LW/POA. Pt confirmed she has not completed these, but plans to work w/the SW at dialysis to complete. SW did give pt blank LW/POA forms with the SW number here, and let her know that if she would like, we also would be able to assist her with this, she can set up an appointment as an outpt. Pt states understanding. Pt is being discharged home today. Also, SW received a message back from Nita Camargo from [facility], confirming pt does not have LW/POA. SW called her back, left a message letting her know that pt was admitted on 11/17/18 and is being discharged today. No further needs. HUDSON Rodriguez, GRANULATOR MACHINE OPERATOR
--- NOTE | 2018-11-21 11:12 | EEG ---
- Electroencephalogram Date of service 11/18/2018 History EEG is being done in this 48 yr F to rule out seizures EEG Description: This is an 18 channel EEG with 10-20 lead placement system. Bipolar montages, Referential and Circumferential montages were reviewed. Photic stimulation was performed but Hyperventilation could not be performed. The posterior dominant rhythm was absent. Photo stimulation did not elicit normal driving response or any abnormal photoparoxysmal response, Hyperventilation was not performed. Sleep was not identified. There is generalized abnormal background slowing in the delta frequency along with intermittent triphasic waves noted. There was no epileptiform discharges or electrographic seizures noted during this recording. EEG Interpretation This is an abnormal EEG due to the presence of severe generalized background slowing along with intermittent triphasic waves. This may be seen with generalized cerebral dysfunction like metabolic/toxic encephalopathy. Clinical correlation is advised. There is no epileptiform discharges or electrographic seizures noted during the record.
--- NOTE | 2018-11-21 11:16 | EEG_ITS ---
- Electroencephalogram Date of service 11/18/2018 History EEG is being done in this 48 yr F to rule out seizures EEG Description: This is an 18 channel EEG with 10-20 lead placement system. Bipolar montages, Referential and Circumferential montages were reviewed. Photic stimulation was performed but Hyperventilation could not be performed. The posterior dominant rhythm was absent. Photo stimulation did not elicit normal driving response or any abnormal photoparoxysmal response, Hyperventilation was not performed. Sleep was not identified. There is gener alized abnormal background slowing in the delta frequency along with intermittent triphasic waves noted. There was no epileptiform discharges or electrographic seizures noted during this recording. EEG Interpretation This is an abnormal EEG due to the presence of severe generalized background slowing along with intermittent triphasic waves. This may be seen with generalized cerebral dysfunction like metabolic/toxic encephalopathy. Clinical correlation is advised. There is no epileptiform discharges or electrographic seizures noted during the record.
--- NOTE | 2018-11-22 13:58 | CASEMGMT ---
ROSHAN CM DC PHONE CALL DC DATE: 11/19/18 DC Disposition: home LACE/STRATA: 25/12 Attempted call. No answer and no message machine pecan picker. Ramón GALEANON RN ACM
== END 2018-11-19 12:10 | disposition home or self-care (01) | DRG 77 ==
LOC: ED 21:34 → ICU 21:50
PROVIDERS: Internal Medicine Critical Care Medicine; Admitting Provider Hospitalist; Emergency Provider Emergency Medicine; Family Provider Family Medicine Geriatric Medicine; PCP Family Medicine Geriatric Medicine; Visit Provider Family Medicine
DX: I67.4 Hypertensive encephalopathy (principal); N18.6 End stage renal disease; I12.0 Hypertensive chronic kidney disease with stage 5 chronic kidney disease or end stage renal disease; T82.7XXA Infection and inflammatory reaction due to other cardiac and vascular devices, implants and grafts, initial encounter; I16.0 Hypertensive urgency; Z99.2 Dependence on renal dialysis; M32.14 Glomerular disease in systemic lupus erythematosus; B96.89 Other specified bacterial agents as the cause of diseases classified elsewhere; B96.5 Pseudomonas (aeruginosa) (mallei) (pseudomallei) as the cause of diseases classified elsewhere; G47.419 Narcolepsy without cataplexy; D64.9 Anemia, unspecified; E78.5 Hyperlipidemia, unspecified; I27.21 Secondary pulmonary arterial hypertension; M50.30 Other cervical disc degeneration, unspecified cervical region; I36.1 Nonrheumatic tricuspid (valve) insufficiency; I34.0 Nonrheumatic mitral (valve) insufficiency; E11.22 Type 2 diabetes mellitus with diabetic chronic kidney disease
CPT/HCPCS: 36600; 70450; 70544; 70547; 70551; 71045; 80048; 80053; 80307; 80320; 81001; 82803; 82962; 84443; 84484; 84703; 85025; 85610; 85730; 87040; 87070; 87077; 87186; 87205; 90937; 93005; 95819; 97802; 99283; J0885; J7050; A4216; G0257; G0480

== ENCOUNTER → 2019-03-22 08:45 | Outpatient (CLI) | payer MEDICARE, MEDICAID, SELFPAY ==
[2019-01-31 13:20] VITALS: BMI 27.6
--- NOTE | 2019-03-22 08:49 | VDUE_ITS ---
Reason For Study: Preop testing Right Proximal Left Proximal Right jugular vein is spontaneous, widely Left jugular vein is spontaneous, widely patent, phasic, with no intraluminal patent, phasic, with no intraluminal echogenicity noted. echogenicity noted. Acute deep vein thrombosis noted in the right Left subclavian vein is spontaneous, widely subclavian vein. patent, phasic, with no intraluminal Right Lower Arm echogenicity noted. Right radial vein is compressible. Left Arm Right ulnar vein is compressible. Left axillary vein is spontaneous, patent, Right Arm phasic, competent, compressible and Right axillary vein is spontaneous, patent, demonstrates augmentation. phasic, competent, compressible and Left brachial vein is compressible. demonstrates augmentation. Left cephalic vein is compressible. Right brachial vein is compressible. Left basilic vein is compressible. Right cephalic vein is compressible. Failed AVF noted in the left forearm. Clotted AFV noted in the basilic vein. Left Lower Arm Left radial vein is compressible. Left ulnar vein is compressible. Patient Safety Prelim to Dr. Valverde's Nurse. Interpretation Summary Patent and compressible right internal jugular vein--I do not identify dialysis catheters within this vein on the images provided Thrombosed right subclavian vein with possible catheter present. Patent right axillary vein Thrombosed right basilic vein dialysis fistula Patent left internal jugular and subclavian vein. Failed left forearm AF fistula Ordering Physician: iRgo Valverde Referring Physician: Mitchell Bowen Chi Performed By: Agata Hughes RVT ?
== END ==
PROVIDERS: Family Provider Family Medicine Geriatric Medicine; PCP Family Medicine Geriatric Medicine; Referring Provider Surgery; Visit Provider Surgery
DX: Z01.818 Encounter for other preprocedural examination (principal); I82.B13 Acute embolism and thrombosis of subclavian vein, bilateral
CPT/HCPCS: 93970

== ENCOUNTER → 2019-03-23 14:35 | Outpatient (CLI) | payer MEDICARE, MEDICAID, SELFPAY ==
[2019-01-31 13:20] VITALS: BMI 27.6
[2019-03-23 17:39] LABS: Absolute Lymphocyte Count 0.74 X10^3/ul (0.83-4.51); Absolute Neutrophil Count 9.5 X10^3/uL (2.0-7.7); Hematocrit 34.5 % (37-47); Hemoglobin 10.7 g/dl (12.0-15.0); Lymphocyte # 0.74 X10^3/ul (4.0); Lymphocyte % 6.7 % (19-41); Mean Corpuscular Hgb 31.3 pg (27.0-32.0); Mean Corpuscular Volume 100.9 fL (81-99); Mean Platelet Vol. 10.2 fl (6.2-12.0); Monocyte# 0.83 X10^3/uL; Monocyte% 7.5 % (0-10); Neutrophil # 9.48 X10^3/uL (2.7-7.7); Neutrophil % 85.5 % (47-70); Platelet Count 177 K/mm3 (150-450); RBC Distribution Width CV 16.1 % (11.6-14.6); RBC Distribution Width SD 57.1 fl (35.1-43.9); Red Blood Count 3.42 M/mm3 (4.2-5.4); White Blood Count 11.1 K/mm3 (4.4-11.0)
[2019-03-23 17:49] LABS: ALB/GLOB Ratio 0.8 RATIO (0.9-2.4); AST(SGOT) 41 U/L (15-37); Alanine Aminotransfer ALT/SGPT 20 U/L (13-56); Albumin, Serum 3.7 g/dL (3.2-5.0); Alkaline Phosphatase 114 U/L (45-117); Anion Gap 12 (5-15); BUN 39 mg/dL (7-18); BUN/Creat Ratio 5.5 RATIO (10-20); Calcium,Total 9.5 mg/dL (8.5-10.1); Chloride 97 mmol/L (98-107); Creatinine, Serum 7.07 mg/dL (0.55-1.02); EST Glomerular Filtration Rate 7 mL/min (>60); Est Glom Filt Rate - Afr Amer 8 mL/min (>60); Globulin 4.7 g/dL (2.2-4.2); Glucose 149 mg/dL (74-106); Potassium 4.9 mmol/L (3.5-5.1); Protein, Total 8.4 g/dL (6.4-8.2); Sodium Level 136 mmol/L (136-145); Thyroid Stim Hormone (TSH) 0.58 uIU/mL (0.358-3.74)
[2019-03-23 17:55] LABS: POSITIVE COUNT NO; POSITIVE DIFFERENTIAL NO; POSITIVE MORPHOLOGY NO
== END ==
PROVIDERS: Family Provider Family Medicine Geriatric Medicine; PCP Family Medicine Geriatric Medicine; Visit Provider Family Medicine Geriatric Medicine
DX: E11.9 Type 2 diabetes mellitus without complications (principal); E55.9 Vitamin D deficiency, unspecified; I10 Essential (primary) hypertension
CPT/HCPCS: 36415; 80053; 82306; 84443; 85025

== ENCOUNTER 2019-03-28 07:32 | Emergency (ER) | payer MEDICARE, MEDICAID, SELFPAY ==
[2019-01-31 13:20] VITALS: BMI 27.6
[2019-03-28] VITALS (7 sets, daily range): BP systolic 180–197; BP diastolic 95–117; PULSE 78–90; RESP 16–19; TEMP 36.9–37.3; O2SAT 95–100; BMI 26.9
[2019-03-28] MEDS: Morphine 4 MG/ML Syringe IV (07:50)
--- NOTE | 2019-03-28 07:51 | ED.DCSUM_ITS ---
History of Present Illness Chief Complaint: Lower Extremity Injury Informant: Patient Onset: Days Context: Sudden Onset Timing: Intermittent, Waxes and wanes Quality: Pain Location: Right hip/inguinal area Current Severity: Mild Maximum Severity: Severe Worsened by: Movement of the right lower extremity Relieved by: Nothing. Better with hip flexed to 30 degrees Associated Symptoms: Reports temperature up 103 degrees Wednesday. Narrative: Patient is a middle-aged woman with multiple medical problems on hemodialysis. She recently saw her primary care physician. She states she got 3 injections. She is uncertain what she received. She states yesterday at dialysis blood cultures were obtained and since she does urinate urine specimen was obtained. Patient reports pain in the right inguinal area. Movement of the right lower extremity causes her pain. She denies history of prior injury to the right hip. She denies swelling, discoloration. She has not had a documented fever since the weekend. She states she has history of chronic hip pain. The pain is been worse recently. Apparently she has been on systemic steroids in the past. Prior similar symptoms: Yes Recent Illness/Hospitalization: Yes - Past Medical History (1) Presence of surgically created arteriovenous shunt for hemodialysis Status: Acute (2) Uncontrolled hypertension Status: Acute (3) Cervical spondylosis Status: Chronic (4) Chronic anemia Status: Chronic (5) Chronic diarrhea Status: Chronic (6) Degenerative disc disease, cervical Status: Chronic (7) Diabetes mellitus, type II Status: Chronic (8) ESRD (end stage renal disease) on dialysis Status: Chronic (9) Lupus nephritis Status: Chronic Comment: Status post kidney and liver biopsy (fatty liver) (10) Narcolepsy Status: Chronic (11) Non-rheumatic tricuspid valve insufficiency Status: Chronic (12) Nonrheumatic mitral (valve) insufficiency Status: Chronic (13) Prolonged QT interval Status: Chronic (14) Secondary pulmonary arterial hypertension Status: Chronic Past Medical History - Allergies and Home Meds Allergies/Adverse Reactions: Allergies LONG Inhibitors Allergy (Verified 03/28/19 07:41) Angioedema adhesive Allergy (Verified 03/28/19 07:41) Rash lisinopril Allergy (Verified 03/28/19 07:41) Angioedema Sulfa (Sulfonamide Antibiotics) Allergy (Verified 03/28/19 07:41) Rash sulfamethoxazole [From Bactrim] Allergy (Verified 03/28/19 07:41) Rash trimethoprim [From Bactrim] Allergy (Verified 03/28/19 07:41) Rash Angioderm Adverse Reaction (Unknown, Uncoded 03/28/19 07:41) Unknown Primary Care Physician: Mitchell Bowen Chi, MD [Primary Care Provider] - Prior records reviewed: Yes Surgical History: - - failed AVF left arm, AVF right arm Lives: Alone Smoking Status: Never smoker Alcohol: None Drugs: None - Family History Maternal Family History: Family History (Last Reviewed 01/31/19 @ 13:20 by Gabriella Mansfield) Mother Hypertension Kidney disease ALS (amyotrophic lateral sclerosis) Father Heart disease Hypertension Kidney disease Diabetes Family History: Reports: Diabetes, High Cholesterol, Heart Disease, Hypertension, Renal Disease, - Paternal Family History: Family History (Last Reviewed 01/31/19 @ 13:20 by Gabriella Mansfield) Mother Hypertension Kidney disease ALS (amyotrophic lateral sclerosis) Father Heart disease Hypertension Kidney disease Diabetes Family History: Reports: Diabetes, High Cholesterol, Heart Disease, Hypertension, Renal Disease Sibling Family History: Family History (Last Reviewed 01/31/19 @ 13:20 by Gabriella Mans[place]) Mother Hypertension Kidney disease ALS (amyotrophic lateral sclerosis) Father Heart disease Hypertension Kidney disease Diabetes Family History: Reports: Diabetes Review of Systems General: Reports: Chills, Fever, Malaise Eyes: Denies: Visual changes - bilaterally, Diplopia ENT: Denies: Bilateral ear pain, Rhinorrhea, Sore throat Cardiovascular: Denies: Chest pain, Palpitations Respiratory: Denies: Dyspnea, Cough, Dyspnea on exertion Gastrointestinal: Reports: Diarrhea - Diarrhea is chronic. Denies: Abdominal pain, Nausea, Vomiting, Melena, Hematochezia Genitourinary: Reports: Frequency - And urgency. Denies: Dysuria, Hematuria Musculoskeletal: Reports: Extremity Pain. Denies: Myalgias, Arthralgias, Neck pain, Back pain, Swelling Skin: Denies: Rash, Wounds Neurological: Reports: Parasthesia. Denies: Headache, Weakness, Numbness Endocrine: Denies: Polyuria, Polydipsia Hematologic: Denies: Easy bruising, Easy bleeding Physical Exam Vital Signs/Narrative: Vital Signs Temp Pulse Resp BP Pulse Ox 03/28/19 07:33 98.5 F 84 16 186/111 H 100 Inital Vital Signs reviewed: Yes General: Well nourished, Well developed, No Acute Distress Head: Normocephalic, Atraumatic Eyes: Perrl, EOMI ENT: Moist mucous membranes, No rhinorrhea Neck: Supple, Nontender Cardiovascular: Regular rate, Regular rhythm, No murmurs Respiratory: No distress, CTA bilaterally, Chest nontender Abdomen: Soft, Nontender, Nondistended, Normal bowel sounds Back: Nontender, Normal Inspection Extremities: No edema, Tenderness - Tenderness right hip inguinal region. L ogrolling causes discomfort in the hip. Attempt to perform Fernando Jennifer for test causes significant pain in the groin. There are no dermatologic lesions or changes noted. Skin: Normal color, No rash. Negative for: Cyanosis, Diaphoresis, Jaundice Neurological: Alert, Oriented x3, Cranial nerves II-XII grossly intact, Normal Strength, Normal Sensation Psychological: Depressed - Little eye contact. Slow psychomotor skills. Diagnostic/Tx/Re-eval Chest X-Ray - ED: Read by ED Physician, - - Three-view x-ray of the right hip was interpreted by me at 0811 as unremarkable. She has bilateral prosthetic hips. There is no obvious abnormality of the osseous structures. The prosthes is appears normal. Impressions Hip/Pelvis X-Ray 03/28/19 08:00 IMPRESSION: Status post bilateral hip replacement. No acute abnormality is seen. Electronically Signed: Jonathan Garcia, at 8:23 EDT , Service support , 03/28/19 08:00 Xray hip [HIP, UNI W/ Pelvis 2-3 Views] [RAD] Stat Laboratory Results 03/28/19 03/28/19 07:53 07:53 WBC 9.9 RBC 2.74 L Hgb 8.5 L Hct 26.6 L MCV 97.1 MCH 31.0 MCHC 32.0 RDW Std Deviation 56.9 H RDW Coeff of Jah 16.3 H Plt Count 255 MPV 9.9 Immature Gran % (Auto) 0.300 Neut % (Auto) 69.6 Lymph % (Auto) 12.5 L [place] % (Auto) 16.8 H Eos % (Auto) 0.8 Baso % (Auto) 0.0 Absolute Neuts (auto) 6.9 Absolute Lymphs (auto) 1.24 ESR 120 H Sodium 131 L Potassium 4.6 Chloride 93 L Carbon Dioxide 31.0 Anion Gap 7 BUN 48 H Creatinine 6.59 H Estim Creat Clear Calc 9.21 Est GFR (MDRD) Af Amer 9 L Est GFR (MDRD) Non-Af 7 L BUN/Creatinine Ratio 7.3 L Glucose 97 Calcium 9.0 Total Bilirubin 0.70 AST 33 ALT 14 Alkaline Phosphatase 116 C-React Prot Ext Range 132.00 H Total Protein 7.6 Albumin 2.9 L Globulin 4.7 H Albumin/Globulin Ratio 0.6 L - EKG Initial EKG Interpretation: Sinus Rhythm - Circular rate is 92 beats. W[place] interval 142 ms. QRS durations 94 ms. QT durations 378 ms. [place] is normal. There is J-point elevation the 3 through V6. - Medical Decision Making Vision states she called paramedics. Patient walked to the door. She now screams with transfer from EMS cot to examination bed. With history of steroid use one is entertained possibility of avascular necrosis of the femoral head. With reported temperature of 103 degrees this past weekend need to consider pyogenic arthritis. Because she reports urgency and frequency will need to obtain results of UA/urine culture. To evaluate patient's hip pain x-ray was obtained as well as appropriate blood work which includes CBC, ESR, CRP and electrolyte panel. She was medicated with morphine for her discomfort. Made aware at 0810 that patient is requesting more pain medicine. 0.5 mg of Dilaudid was ordered. Blood work is remarkable for ESR and CRP which are markedly elevated. Patient was able to ambulate to restroom. There is no grimacing or hesitation with movement of right lower extremity. Suspect the elevated ESR and CRP are se condary to lupus and not pyogenic arthritis. When she walked to the restroom she was bearing weight. Now walking from the restroom back to her room she was not bearing weight. She was asked to question and prior to answering she stopped and was able to bear weight. At 1050 I was informed by radiologist that he aspirated 3 cc of brown kaylen purulent fluid from the right hip. Fluid was sent for appropriate studies. Orthopedics was paged. Will treat with IV antibiotics. Talk with Dr. Garcia Herrera at 1140. He recommended discussing case with Dr. Clive Hernandez; otherwise, patient will require transfer. He states he does not do revisions. Dr. Hernandez did return call. He states he is willing to care for the patient; however, he was informed that the anesthesiologist would not allow him to perform surgery today. He recommended that the patient be transferred. The nurse at [facility] transfer line was contacted and made aware of patient. Awaiting callback. [facility] has called the transfer line. Awaiting orthopedic callback. Time of last entry [address] Becerra at [facility] who accepted patient ED Disposition - Plan for ED Patient: Disposition: [facility] Diagnosis: Septic hip Referrals: Mitchell Bowen Chi, MD [Primary Care Provider] -
--- NOTE | 2019-03-28 08:00 | RAD_ITS ---
STUDY: X-RAY - PELVIS AND RIGHT HIP REASON FOR EXAM: Female, 48 years old. Severe pain. No known injury. TECHNIQUE: 3 views of the pelvis and hip. COMPARISON: Comparison is made with prior examination August 24, 2014. FINDINGS: There is a non-specific bowel gas pattern. Normal visualized soft tissue structures. Normal bilateral iliac wings, sacroiliac joints and visualized sacrum. Normal bilateral superior and inferior pubic rami. Normal pubic symphysis. Normal bilateral ischial tuberosities. The patient is status post bilateral hip replacement. There is good alignment. RAD/HIP, UNI W/ Pelvis 2-3 Views IMPRESSION: Status post bilateral hip replacement. No acute abnormality is seen. Electronically Signed: Jonathan Garcia, at 8:23 EDT , Service support ,
[2019-03-28 08:15] LABS: Erythrocyte Sedimentation Rate 120 mm/hr (0-20)
[2019-03-28 08:24] LABS: Absolute Lymphocyte Count 1.24 X10^3/ul (0.83-4.51); Absolute Neutrophil Count 6.9 X10^3/uL (2.0-7.7); Differential Indicated SCAN CRITERIA MET; Eosinophil# 0.08 X10^3/uL; Eosinophils% 0.8 % (0-5); Hematocrit 26.6 % (37-47); Hemoglobin 8.5 g/dl (12.0-15.0); Lymphocyte # 1.24 X10^3/ul (4.0); Lymphocyte % 12.5 % (19-41); Mean Corpuscular Volume 97.1 fL (81-99); Mean Platelet Vol. 9.9 fl (6.2-12.0); Monocyte# 1.67 X10^3/uL; Monocyte% 16.8 % (0-10); Neutrophil % 69.6 % (47-70); POSITIVE COUNT NO; POSITIVE DIFFERENTIAL YES; POSITIVE MORPHOLOGY NO; Platelet Count 255 K/mm3 (150-450); RBC Distribution Width CV 16.3 % (11.6-14.6); RBC Distribution Width SD 56.9 fl (35.1-43.9); Red Blood Count 2.74 M/mm3 (4.2-5.4); White Blood Count 9.9 K/mm3 (4.4-11.0)
[2019-03-28 08:29] LABS: ALB/GLOB Ratio 0.6 RATIO (0.9-2.4); AST(SGOT) 33 U/L (15-37); Alanine Aminotransfer ALT/SGPT 14 U/L (13-56); Albumin, Serum 2.9 g/dL (3.2-5.0); Alkaline Phosphatase 116 U/L (45-117); Anion Gap 7 (5-15); BUN 48 mg/dL (7-18); BUN/Creat Ratio 7.3 RATIO (10-20); Chloride 93 mmol/L (98-107); Creatinine, Serum 6.59 mg/dL (0.55-1.02); EST Glomerular Filtration Rate 7 mL/min (>60); Est Glom Filt Rate - Afr Amer 9 mL/min (>60); Estimated Creatinine Clearance 9.21 ml/min; Globulin 4.7 g/dL (2.2-4.2); Glucose 97 mg/dL (74-106); Potassium 4.6 mmol/L (3.5-5.1); Protein, Total 7.6 g/dL (6.4-8.2); Sodium Level 131 mmol/L (136-145)
[2019-03-28] MEDS: HYDROmorphone 0.5 MG/0.5 ML SYRINGE IV ×3 (08:57→19:11)
--- NOTE | 2019-03-28 10:35 | RAD_ITS ---
PROCEDURE: Fluoroscopic guided right Hip aspiration. DATE: March 28, 2019. INDICATION: Female, 48 years old. Possible infected right hip replacement. PHYSICIAN: Jonathan Garcia M.D. ACCESS SITE: Right hip. NEEDLE: 22-gauge spinal needle. FLUOROSCOPY TIME (if supplied): (0:33) minutes/seconds. One image was obtained. FINDINGS: The risks, benefits, and alternatives to the procedure were explained to the patient. The specific risks of bleeding, infection, and neurovascular injury were detailed and accepted. Witnessed informed consent was obtained. A 22-gauge spinal needle was positioned under radiographic fluoroscopic localization. Approximately 2 cc of Isovue-300 instilled for localization purposes. 3 cc of rust colored purulent material was aspirated. The patient tolerated the procedure well without any immediate complications. The patient was placed supine with head elevated and returned to the floor in stable condition. RAD/Inj/Asp Deon Jt Should/Hip/Knee IMPRESSION: 1. Successful fluoroscopic guided hip aspiration. Electronically Signed: Jonathan Garcia, at 11:30 EDT , Service support ,
[2019-03-28 11:41] LABS: Synovial Fld Mononuclear WBC % 38.1 %; Synovial Fld Polynuclear WBC # 10.969 10^3/uL; Synovial Fld Polynuclear WBC % 61.9 %
[2019-03-28 12:04] LABS: RBC /Synovial Fluid 0.014 10^6/uL (0)
[2019-03-28 12:11] LABS: AUTO B FLUID DILUENT BKGD CT WBC <0.1 RBC <0.01 (W<.1,R<.01); Source / Synovial Fluid HIP
[2019-03-28 12:12] LABS: Appearance /Synovial Fluid Sl Cl (CLEAR); Color / Synovial Fluid Yellow (Pale Yellow)
--- NOTE | 2019-03-28 12:22 | EKG12_ITS ---
Test Reason : PRE OP Blood Pressure : / mmHG Vent. Rate : 092 BPM Atrial Rate : 092 BPM P-R Int : 142 ms QRS Dur : 094 ms QT Int : 378 ms P-R-T Axes : 082 086 047 degrees QTc Int : 467 ms Normal sinus rhythm Normal ECG Confirmed by DK GARCIA, BAM ([id number]), assistant editor GEOVANNA HULL ([id number]) on 03/31/2019 1:44:42 PM Referred By: ANUJA Confirmed By:BEVERLY ROOT MD
[2019-03-28] MEDS: HYDROmorphone 1 MG/ML Syringe 0.5 MG IV (12:23)
[2019-03-28 13:06] LABS: Body Fluid QC Type(s) BF4Q; Lymph 38 %; Neutrophil 62 % (0-25)
--- NOTE | 2019-03-28 14:36 | ED.RN ---
ARY WITH [facility] STATED SHE IS STILL WAITING ON ORTHO TO CONSULT ABOUT TRANSFERING PT.
--- NOTE | 2019-03-28 19:30 | ED.RN ---
ems transport arrived and report given.
--- NOTE | 2019-03-28 20:07 | ED.RN ---
OPENED CHART FOR AN EMS QUESTION ABOUT VITALS
[2019-03-29 13:50] LABS: Pathologist Comment Reviewed
== END 2019-03-28 19:30 | disposition short-term general hospital (02) ==
PROVIDERS: Emergency Provider Emergency Medicine; Family Provider Family Medicine Geriatric Medicine; PCP Family Medicine Geriatric Medicine
DX: M00.851 Arthritis due to other bacteria, right hip (principal); M25.551 Pain in right hip; G89.29 Other chronic pain; E11.22 Type 2 diabetes mellitus with diabetic chronic kidney disease; I12.0 Hypertensive chronic kidney disease with stage 5 chronic kidney disease or end stage renal disease; N18.6 End stage renal disease; Z99.2 Dependence on renal dialysis; M47.812 Spondylosis without myelopathy or radiculopathy, cervical region; K52.9 Noninfective gastroenteritis and colitis, unspecified; M50.30 Other cervical disc degeneration, unspecified cervical region; G47.419 Narcolepsy without cataplexy; I27.21 Secondary pulmonary arterial hypertension; I34.0 Nonrheumatic mitral (valve) insufficiency; I36.1 Nonrheumatic tricuspid (valve) insufficiency; M32.14 Glomerular disease in systemic lupus erythematosus; Z86.2 Personal history of diseases of the blood and blood-forming organs and certain disorders involving the immune mechanism; Z96.643 Presence of artificial hip joint, bilateral; Z79.899 Other long term (current) drug therapy
CPT/HCPCS: 20610; 73502; 77002; 80053; 85025; 85652; 86140; 87070; 87075; 87077; 87186; 87205; 89050; 89051; 93005; 96365; 96366; 96367; 96374; 96375; 96376; 99285; J7040; J7050; Q9967; A4216

== ENCOUNTER 2019-04-18 03:31 | Inpatient (IN) | payer MEDICARE, MEDICAID, SELFPAY ==
[2019-03-28 07:33] VITALS: BMI 26.9
[2019-04-18] VITALS (9 sets, daily range): BP systolic 136–173; BP diastolic 78–105; PULSE 77–92; RESP 12–18; TEMP 36.4–36.6; O2SAT 97–100; BMI 26.7; BMI 24.6; BMI 24.7
--- NOTE | 2019-04-18 04:36 | RAD_ITS ---
STUDY: X-RAY - RIGHT HIP REASON FOR EXAM: Female, 48 years old. History of hip surgery. Patient fell out of a chair yesterday. Pain. TECHNIQUE: 2 views of the hip. COMPARISON: 03/28/2019. FINDINGS: There is no demonstrated fracture of the visualized portions of the right hemipelvis. The patient is status post total hip replacement. There is superolateral dislocation of the prosthetic femoral head from the prosthetic acetabulum. The femoral and acetabular components of the prosthesis otherwise appear to be intact with no evidence for loosening. RAD/Hip Min 2 Views (Portable) IMPRESSION: Status post total hip replacement. Superolateral dislocation of the femoral component from the acetabular component. Electronically Signed: Kwabena Bueno MD at 5:50 EDT , Service support ,
--- NOTE | 2019-04-18 04:36 | RAD_ITS ---
STUDY: X-RAY CHEST REASON FOR EXAM: Female, 48 years old. Right hip dislocation. TECHNIQUE: Single AP portable view of the chest. COMPARISON: 11/17/2018 FINDINGS: There is a double-lumen right internal jugular central venous catheter with its tip in the distal superior vena cava. The lungs are clear and expanded. There is no demonstrated pleural abnormality. The heart is mildly enlarged. Normal mediastinum and malorie. Normal visualized pulmonary arteries. Normal visualized aortic arch and descending thoracic aorta. Normal visualized thoracic spine. Normal visualized ribs, clavicles, and shoulders. There is no demonstrated abnormality of the visualized soft tissue structures of the upper abdomen. RAD/Chest 1 View (Portable) IMPRESSION: Mild cardiomegaly. Central venous catheter in stable position. No evidence for acute cardiopulmonary pathology. Electronically Signed: Kwabena uBeno MD at 5:47 EDT , Service support ,
--- NOTE | 2019-04-18 04:37 | EKG12_ITS ---
Test Reason : Blood Pressure : / mmHG Vent. Rate : 079 BPM Atrial Rate : 079 BPM P-R Int : 148 ms QRS Dur : 090 ms QT Int : 376 ms P-R-T Axes : 068 041 109 degrees QTc Int : 431 ms Normal sinus rhythm Low voltage QRS Nonspecific ST and T wave abnormality Abnormal ECG Confirmed by RENAE ROBERTS ([id number]), editorial specialist CESAR SIMEON ([id number] on 04/19/2019 3:10:57 PM Referred By: Confirmed By:RENAE ROBERTS
[2019-04-18 04:57] LABS: Absolute Lymphocyte Count 1.07 X10^3/uL (0.83-4.51); Absolute Neutrophil Count 7.5 X10^3/uL (2.0-7.7); Basophil# 0.03 X10^3/uL; Basophil% 0.3 % (0-1); Eosinophil# 0.12 X10^3/uL; Eosinophils% 1.2 % (0-5); Hematocrit 25.7 % (37-47); Hemoglobin 8.2 g/dL (12.0-15.0); Lymphocyte # 1.07 X10^3/ul (4.0); Lymphocyte % 10.8 % (19-41); Mean Corp Hgb Conc 31.9 g/dL (32-36); Mean Corpuscular Hgb 30.9 pg (27.0-32.0); Mean Platelet Vol. 9.6 fl (6.2-12.0); Monocyte# 1.18 X10^3/uL; Monocyte% 11.9 % (0-10); NRBC Flagged by Analyzer 0 % (0-5); Neutrophil # 7.47 X10^3/uL (2.7-7.7); Neutrophil % 75.4 % (47-70); Platelet Count 142 K/mm3 (150-450); RBC Distribution Width CV 15.8 % (11.6-14.6); RBC Distribution Width SD 55.1 fl (35.1-43.9); Red Blood Count 2.65 M/mm3 (4.2-5.4); White Blood Count 9.9 K/mm3 (4.4-11.0)
--- NOTE | 2019-04-18 04:59 | ED.DCSUM_ITS ---
- ER Visit Summary Date of Service: 04/18/19 Chief Complaint: Right hip pain History of Present Illness: The patient is a 48 F slid out of a chair and is complaining of right hip pain. She had her right hip replaced and the prosthesis was then removed due to infection. She is currently staying at [facility] facility. She was in a chair and slid out of the chair yesterday. She did not hit her head. She has an appointment with orthopedics in the morning but was complaining of pain so was sent to the ED. Patient has a history of narcolepsy and falls asleep frequently during evaluation. Physical Examination: Vitals are stable. Patient is afebrile. no acute distress. HEENT exam is unremarkable. Neck is supple. Lungs are clear and equal bilaterally. Heart is regular rate and rhythm. Abdomen is soft nontender nondistended. Extremities incision clean dry and intact. Right lower extremity internally rotated and shortened. Normal distal pulses Skin is warm and dry. Patient opens eyes to voice. Remainder of exam is unremarkable. Emergency Department Course and Treatment: EKG is sinus rhythm rate of 79. Chest x-ray shows mild cardiomegaly. Central venous catheter in stable position. No evidence for acute cardiopulmonary pathology. Right hip xray shows Status post total hip replacement. Superolateral dislocation of the femoral component from the acetabular component. CBC shows hemoglobin 8.2, platelet 142. Chemi stries show BUN 34, creatinine 5.76. Urinalysis unremarkable. Troponin 0.061. Patient was given propofol for procedural sedation. Closed reduction was performed. Repeat x-ray shows reduction of her right hip. Patient continues to be lethargic. She does open eyes to voice. She has history of previous metabolic encephalopathy. Discussed with the hospitalist for admission. Disposition: Admission Impression: Right hip dislocation, closed reduction right hip, metabolic encephalopathy This note was generated with [employer] dictation software. It may contain incorrect words, spelling, and punctuation that were not noted in review of the chart prior to signing ED Disposition - Plan for ED Patient: Referrals: Mitchell Bowen Chi, MD [Primary Care Provider] -
[2019-04-18 05:18] LABS: Anion Gap 10 (5-15); BUN 34 mg/dL (7-18); BUN/Creat Ratio 5.9 RATIO (10-20); Calcium,Total 8.7 mg/dL (8.5-10.1); Chloride 101 mmol/L (98-107); Creatinine, Serum 5.76 mg/dL (0.55-1.02); EST Glomerular Filtration Rate 8 mL/min (>60); Est Glom Filt Rate - Afr Amer 10 mL/min (>60); Estimated Creatinine Clearance 11.42 ml/min; Glucose 66 mg/dL (74-106); Potassium 4.6 mmol/L (3.5-5.1); Sodium Level 137 mmol/L (136-145)
[2019-04-18 06:27] LABS: Bacteria 0 SEEN /hpf (None Seen); Mucous, Urine 0 SEEN /hpf (<or=2+); Squamous Epithelial Cells - UA 0 SEEN /hpf (5-10); White Blood Cells 0 SEEN /hpf (0-5)
[2019-04-18 06:31] LABS: Color, Urine Straw (Yellow); Glucose, Dipstick Normal (Normal); Ketone-Dipstick Negative (Negative); Leukocyte Esterase-Dipstick Negative /ul (Negative); Nitrite-Dipstick Negative (Negative); Occult Blood-Urine 50 /ul (Negative); Protein-Dipstick 100 mg/dl (Negative); Specific Gravity, Urine 1.015 (1.002-1.030); Urine Bilirubin Dipstick Negative (Negative); Urine Clarity Sl. Cloudy (Clear); Urine Urobilinogen Normal (Normal)
[2019-04-18 06:44] LABS: Red Blood Cells-Urine 0-5 SEEN /hpf (0-5)
--- NOTE | 2019-04-18 07:36 | RAD_ITS ---
STUDY: X-RAY - PELVIS AND RIGHT HIP REASON FOR EXAM: Female, 48 years old. Post reduction examination. TECHNIQUE: Single frontal views of the pelvis and hip. COMPARISON: Comparison is made with prior examination done earlier today. FINDINGS: There is a non-specific bowel gas pattern. Normal visualized soft tissue structures. Normal bilateral iliac wings, sacroiliac joints and visualized sacrum. Normal bilateral superior and inferior pubic rami. Normal pubic symphysis. Normal bilateral ischial tuberosities. There is satisfactory reduction of the right prosthetic hip joint. RAD/Hip 1 view with Pelvis IMPRESSION: Satisfactory reduction of the right prosthetic hip joint. Electronically Signed: Jonathan Garcia, at 8:09 EDT , Service support ,
[2019-04-18] MEDS: Propofol 200 MG/20 ML Vial IV BOLUS (07:41)
--- NOTE | 2019-04-18 08:00 | NURSING ---
PCU METABOLIC ENCEPHALOPATHY SEMENTI
[2019-04-18 08:11] LABS: International Normalized Ratio 1.2; Prothrombin Time (Protime)PT. 14.5 SECONDS (11.7-14.9)
[2019-04-18] MEDS: Dextrose 50%-Water 25 GM/50 ML DISP.SYRIN IV (10:34)
[2019-04-18 11:01] LABS: Bedside Glucose 65 mg/dL (70-110)
[2019-04-18 11:01] LABS: Bedside Glucose 188 mg/dL (70-110)
[2019-04-18 11:16] LABS: Bedside Glucose 126 mg/dL (70-110)
--- NOTE | 2019-04-18 13:15 | DCINST_ITS ---
Allergies/Adverse Reactions: Allergies LONG Inhibitors Allergy (Verified 04/18/19 03:34) Angioedema adhesive Allergy (Verified 04/18/19 03:34) Rash lisinopril Allergy (Verified 04/18/19 03:34) Angioedema Sulfa (Sulfonamide Antibiotics) Allergy (Verified 04/18/19 03:34) Rash sulfamethoxazole [From Bactrim] Allergy (Verified 04/18/19 03:34) Rash trimethoprim [From Bactrim] Allergy (Verified 04/18/19 03:34) Rash Angioderm Adverse Reaction (Unknown, Uncoded 04/18/19 03:34) Unknown Medications to take at Discharge Duloxetine Hcl [Cymbalta] 120 mg PO DAILY 10/01/16 Hydroxychloroquine [Plaquenil] 200 mg PO BIDCM 10/01/16 Atorvastatin Calcium [Lipitor] 20 mg PO QHS 01/20/18 Sevelamer Carbonate [Renvela] 1,600 mg PO TIDCM PRN 08/12/18 Prednisone 5 mg PO DAILY 09/09/18 Cevimeline HCl 30 mg PO TID 11/17/18 Clindamycin Phos/Benzoyl Perox [Clinda-Benzoyl Perox 1-5% Pump] 1 applic TP BID 11/17/18 cholecalciferol (vitamin D3) 50,000 unit capsule 50,000 unit PO QMONTH cap 01/31/19 vitamin B complex and vitamin C no.20-folic acid 1 mg capsule 1 cap PO DAILY 01/31/19 Aspirin 81 mg PO BID 04/18/19 Baclofen 10 mg PO TID 04/18/19 Carvedilol [Coreg (Beta Cirilo)] 12.5 mg PO BID 04/18/19 CycloSPORINE Ophthalmic [Restasis Ophthalmic] 1 drp EACH EYE BID 04/18/19 Dextroamphetamine/Amphetamine [Adderall 15 mg Tablet] 1 tab PO DAILY PRN 04/18/19 Docusate Sodium 100 mg PO BID PRN PRN 04/18/19 Ergocalciferol (Vitamin D2) [Vitamin D2] 50 mcg PO QMONTH 04/18/19 Famotidine 40 mg PO BID 04/18/19 Ibuprofen 200 mg PO Q4H PRN PRN 04/18/19 Lidocaine 5 gm TOPICAL BID PRN PRN 04/18/19 Montelukast [Singulair] 1 tab PO QHS 04/18/19 Nifedipine [Nifedipine ER] 90 mg PO DAILY 04/18/19 Ondansetron [Zofran Odt] 4 mg PO Q8H PRN PRN 04/18/19 Primary Care Physician: Mitchell Bowen Chi, MD [Primary Care Provider] - Test Results: Test results from this visit will be discussed in further detail at your follow- up appointment, if applicable.
--- NOTE | 2019-04-18 13:20 | PCM.TXEXTCAR ---
- Diet 04/18/19 09:17 NPO [Diet: Nothing Per Oral] - Routine Orders/Code Status Enema Type: Fleetz Enema Frequency: Daily PRN Suppository Type: Dulcolax 10mg Suppository Frequency: Daily PRN O2 Liters per Minute: 1-2 O2 Frequency: PRN Keep PO Greater than or Equal to (%): 90 - Wound(s) rt hip Wound Type: scar - Therapies Physical Therapy: Eval and Treat Occupational Therapy: Eval and Treat - Problem/Diagnosis (1) Prolonged QT interval Status: Chronic Current Visit: No (2) Presence of surgically created arteriovenous shunt for hemodialysis Status: Chronic Current Visit: No (3) Status post insertion of dialysis catheter Status: Chronic Current Visit: No (4) Altered mental status Status: Acute Comment: due to sedation from Propofol used to reduce the R hip dislocation in the ED Current Visit: No (5) Uncontrolled hypertension Status: Chronic Current Visit: No (6) ESRD (end stage renal disease) on dialysis Status: Chronic Current Visit: No (7) Chronic diarrhea Status: Chronic Current Visit: No (8) Encephalopathy acute Status: Ruled-out Current Visit: No (9) Nonrheumatic mitral (valve) insufficiency Status: Chronic Current Visit: No (10) Secondary pulmonary arterial hypertension Status: Chronic Current Visit: No (11) Non-rheumatic tricuspid valve insufficiency Status: Chronic Current Visit: No (12) End stage renal disease Status: Chronic Current Visit: No (13) Chronic anemia Status: Chronic Current Visit: No (14) Hypertension Status: Chronic Current Visit: No (15) Narcolepsy Status: Chronic Current Visit: No (16) Lupus nephritis Status: Chronic Comment: Status post kidney and liver biopsy (fatty liver) Current Visit: No (17) Degenerative disc disease, cervical Status: Chronic Current Visit: No (18) Cervical spondylosis Status: Chronic Current Visit: No (19) Diabetes mellitus, type II Status: Chronic Current Visit: No (20) SLE (systemic lupus erythematosus) Status: Chronic Current Visit: No (21) Hip dislocation, right Status: Acute Current Visit: Yes - Allergies/Procedures Done in Hospital Allergies/Adverse Reactions: Allergies LONG Inhibitors Allergy (Verified 04/18/19 03:34) Angioedema adhesive Allergy (Verified 04/18/19 03:34) Rash lisinopril Allergy (Verified 04/18/19 03:34) Angioedema Sulfa (Sulfonamide Antibiotics) Allergy (Verified 04/18/19 03:34) Rash sulfamethoxazole [From Bactrim] Allergy (Verified 04/18/19 03:34) Rash trimethoprim [From Bactrim] Allergy (Verified 04/18/19 03:34) Rash Angioderm Adverse Reaction (Unknown, Uncoded 04/18/19 03:34) Unknown Procedures: - - Closed reduction of right hip dislocation in the emergency room - Type of Care/Length of Stay Estimated LOS: Convalescent Care Less Than 30 days Type of Care Needed: Skilled Rehab Potential: Fair Prognosis: Fair - Additional Orders/Day of Discharge H&P will serve as current which was dated: 04/18/19 Day of Discharge: 04/18/19 - Follow Up Care Primary Care Physician: Mitchell Bowen Chi, MD [Primary Care Provider] - Please follow up with your Primary Care Physician in: as needed
--- NOTE | 2019-04-18 13:23 | CASEMGMT ---
Patient is ready for discharge back to [facility]. DION called Rasheeda at [facility] and left her a voice mail letting her know this information. Keren GREER MSW
--- NOTE | 2019-04-18 13:30 | HP.PCM_ITS ---
Problem List (1) Prolonged QT interval Status: Chronic (2) Presence of surgically created arteriovenous shunt for hemodialysis Status: Chronic (3) Status post insertion of dialysis catheter Status: Chronic (4) Altered mental status Status: Acute Qualifiers: Altered mental status type: somnolence Qualified Code(s): R40.0 - Somnolence Comment: due to sedation from Propofol used to reduce the R hip dislocation in the ED (5) Uncontrolled hypertension Status: Chronic (6) ESRD (end stage renal disease) on dialysis Status: Chronic (7) Chronic diarrhea Status: Chronic (8) Nonrheumatic mitral (valve) insufficiency Status: Chronic (9) Secondary pulmonary arterial hypertension Status: Chronic (10) Non-rheumatic tricuspid valve insufficiency Status: Chronic (11) End stage renal disease Status: Chronic Comment: on HD (12) Chronic anemia Status: Chronic (13) Hypertension Status: Chronic Qualifiers: Hypertension type: essential hypertension Qualified Code(s): I10 - Essential (primary) hypertension (14) Narcolepsy Status: Chronic (15) Lupus nephritis Status: Chronic Comment: Status post kidney and liver biopsy (fatty liver) (16) Degenerative disc disease, cervical Status: Chronic (17) Cervical spondylosis Status: Chronic (18) Diabetes mellitus, type II Status: Chronic Qualifiers: Diabetes mellitus complication detail: with other oral complications Qualified Code(s): E11.638 - Type 2 diabetes mellitus with other oral complications (19) SLE (systemic lupus erythematosus) Status: Chronic (20) Hip dislocation, right Status: Acute Qualifiers: Encounter type: initial encounter Qualified Code(s): S73.004A - Unspecified dislocation of right hip, initial encounter Comment: reduced in the ED by Dr. Thao History of Present Illness Date of Admission: 04/18/19 Chief Complaint: Right hip pain The patient is a 48 year old F who resides in a senior living who slid out of her chair on 04/17/19 and then complained of right hip pain the following day. She has had a R hip replacement in the past. She was sent to the ED at [facility] on 04/18/2019 early in the a.m. She had an appt with orthopedics scheduled for later in the day but, the pain was to severe and she was sent to the ED at about 0430. X-ray in the emergency department showed a superolateral dislocation of the femoral component from the acetabular component. She was given 40 mg of propofol in the emergency department and closed reduction was performed. Repeat x-ray showed reduction of the right hip dislocation. The patient continued to be lethargic and difficult to arouse. She does have a history of narcolepsy and she falls off to sleep when you are talking to her. She was admitted to a monitored bed on PCU for observation. She was never hypoxic and the oxygen saturation was 97 to 100% on room air. Blood pressure is elevated but this is chronic and then her vital signs are stable. After the Propofol wore off she awoke and was talking but still lethargic. She had no focal neurologic deficits. She was oriented to person and could tell me the year and the month. She is going to be discharged back to halfway as she is now back to her baseline. Past Medical History Past Medical History (Chronic Problems): Chronic Problems (Last Reviewed 01/31/19 @ 13:20 by Gabriella Mansfield) Prolonged QT interval (Chronic) Presence of surgically created arteriovenous shunt for hemodialysis (Chronic ~11/2017) Status post insertion of dialysis catheter (Chronic) Uncontrolled hypertension (Chronic) ESRD (end stage renal disease) on dialysis (Chronic) Chronic diarrhea (Chronic) Nonrheumatic mitral (valve) insufficiency (Chronic) Secondary pulmonary arterial hypertension (Chronic) Non-rheumatic tricuspid valve insufficiency (Chronic) End stage renal disease (Chronic) on HD Chronic anemia (Chronic) Hypertension (Chronic) Narcolepsy (Chronic) Lupus nephritis (Chronic) Status post kidney and liver biopsy (fatty liver) Degenerative disc disease, cervical (Chronic) Cervical spondylosis (Chronic) Diabetes mellitus, type II (Chronic) SLE (systemic lupus erythematosus) (Chronic) Medical History: Medical History (Last Reviewed 04/18/19 @ 13:39 by Melva Wolfe DO) Prolonged QT interval (Chronic) R94.31 Chronic diarrhea (Chronic) K52.9 Nonrheumatic mitral (valve) insufficiency (Chronic) I34.0 Secondary pulmonary arterial hypertension (Chronic) I27.21 Non-rheumatic tricuspid valve insufficiency (Chronic) I36.1 End stage renal disease (Chronic) N18.6 on HD Chronic anemia (Chronic) D64.9 Hypertension (Chronic) I10 Narcolepsy (Chronic) G47.419 Lupus nephritis (Chronic) M32.14 Status post kidney and liver biopsy (fatty liver) Degenerative disc disease, cervical (Chronic) M50.30 Cervical spondylosis (Chronic) M47.812 Diabetes mellitus, type II (Chronic) E11.9 SLE (systemic lupus erythematosus) (Chronic) M32.9 Allergies LONG Inhibitors Allergy (Verified 04/18/19 03:34) Angioedema adhesive Allergy (Verified 04/18/19 03:34) Rash lisinopril Allergy (Verified 04/18/19 03:34) Angioedema Sulfa (Sulfonamide Antibiotics) Allergy (Verified 04/18/19 03:34) Rash sulfamethoxazole [From Bactrim] Allergy (Verified 04/18/19 03:34) Rash trimethoprim [From Bactrim] Allergy (Verified 04/18/19 03:34) Rash Angioderm Adverse Reaction (Unknown, Uncoded 04/18/19 03:34) Unknown Home Medications: Ambulatory Orders Medication Instructions Recorded Duloxetine Hcl [Cymbalta] 120 mg PO DAILY 10/01/16 Hydroxychloroquine [Plaquenil] 200 mg PO BIDCM 10/01/16 Atorvastatin Calcium [Lipitor] 20 mg PO QHS 01/20/18 Sevelamer Carbonate [Renvela] 1,600 mg PO TIDCM PRN 08/12/18 Prednisone 5 mg PO DAILY 09/09/18 Cevimeline HCl 30 mg PO TID 11/17/18 Clindamycin Phos/Benzoyl Perox 1 applic TP BID 11/17/18 [Clinda-Benzoyl Perox 1-5% Pump] cholecalciferol (vitamin D3) 50,000 unit PO QMONTH cap 01/31/19 50,000 unit capsule vitamin B complex and vitamin C 1 cap PO DAILY 01/31/19 no.20-folic acid 1 mg capsule Aspirin 81 mg PO BID 04/18/19 Baclofen 10 mg PO TID 04/18/19 Carvedilol [Coreg (Beta Cirilo)] 12.5 mg PO BID 04/18/19 CycloSPORINE Ophthalmic [Restasis 1 drp EACH EYE BID 04/18/19 Ophthalmic] Dextroamphetamine/Amphetamine 1 tab PO DAILY PRN 04/18/19 [Adderall 15 mg Tablet] Docusate Sodium 100 mg PO BID PRN PRN 04/18/19 Ergocalciferol (Vitamin D2) 50 mcg PO QMONTH 04/18/19 [Vitamin D2] Famotidine 40 mg PO BID 04/18/19 Ibuprofen 200 mg PO Q4H PRN PRN 04/18/19 Lidocaine 5 gm TOPICAL BID PRN PRN 04/18/19 Montelukast [Singulair] 1 tab PO QHS 04/18/19 Nifedipine [Nifedipine ER] 90 mg PO DAILY 04/18/19 Ondansetron [Zofran Odt] 4 mg PO Q8H PRN PRN 04/18/19 Surgical History: Surgical History (Last Reviewed 04/18/19 @ 13:39 by Melva Wolfe DO) Presence of surgically created arteriovenous shunt for hemodialysis (Chronic) Onset Date: ~11/2017 Z99.2 Status post insertion of dialysis catheter (Chronic) Z95.828, Z99.2 History of esophagogastroduodenoscopy (EGD) Z98.890 S/P colonoscopy Z98.890 S/P lymph node biopsy Z98.890 S/P nasal polypectomy Z98.890 Status post carpal tunnel release Z98.890 Status post total hip replacement, bilateral Z96.643 port removed Surgical History: - - failed AVF left arm, AVF right arm Psychiatric History: Depression 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 History: No pertinent FORECAST ANALYST history Lives: [facility] Smoking Status: Never smoker Tobacco Use: Non-smoker Alcohol: None Drugs: None - *Family History Maternal Family History: Family History (Last Reviewed 04/18/19 @ 13:40 by Melva Wolfe DO) Mother Hypertension Kidney disease ALS (amyotrophic lateral sclerosis) Father Heart disease Hypertension Kidney disease Diabetes History Items: Diabetes, High Cholesterol, Heart Disease, Hypertension, Renal Disease, - Paternal Family History: Family History (Last Reviewed 04/18/19 @ 13:40 by Melva Wolfe DO) Mother Hypertension Kidney disease ALS (amyotrophic lateral sclerosis) Father Heart disease Hypertension Kidney disease Diabetes History Items: Diabetes, High Cholesterol, Heart Disease, Hypertension, Renal Disease Sibling Family History: Family History (Last Reviewed 04/18/19 @ 13:40 by Melva Wolfe DO) Mother Hypertension Kidney disease ALS (amyotrophic lateral sclerosis) Father Heart disease Hypertension Kidney disease Diabetes History Items: Diabetes Review of Systems Unable to obtain accurate/complete ROS d/t: could not obtain - pt not arousable after Propofol VTE Information - Inpt Only VTE Present on Admission: No VTE Mechan Device Prophylaxis: None VTE Pharm Prophylaxis ordered?: No Reason prophylaxis not ordered:: Treatment Not Indicated - pt admitted to the hospital for < 8 hours Patient Problems: Active and Suspected Problems (Last Reviewed 01/31/19 @ 13:20 by Gabriella Mansfield) Hip dislocation, right (Acute) reduced in the ED by Dr. Thao - Physical Exam General: Lethargic - very difficult to arouse HEENT: Atraumatic, Normocephalic Neck: Supple, Trachea Midline Lungs: Clear to auscultation Cardiovascular: Regular rate, Regular Rhythm, Normal S1, Normal S2, No Gallop Abdomen: Bowel Sounds Present, Soft, Non Tender, Non-Distended Extremities: No edema, Peripheral Pulses Normal, - - The incision is intact with no erythema and no increased warmth to touch. the RLE is in a brace after closed reduction of the dislocation Skin: No breakdown Neurological: Cranial nerves II-XII grossly intact, Neuro grossly intact Vital Signs Temp Pulse Resp BP Pulse Ox 97.6 F L 86 18 173/105 H 98 04/18/19 09:51 04/18/19 09:51 04/18/19 09:51 04/18/19 09:51 04/18/19 09:51 Oxygen Flow Rate (L/min) [2] 100 Oxygen Delivery Method [2] Room Air Oxygen Delivery Method [1 ( Room Air Initial Baseline)] Oxygen Delivery Method Room Air Weight: 153 lb 7.068 oz Body Mass Index (BMI) 24.6 Finger Stick Blood Glucose 131 Laboratory Tests Past 24 Hrs 04/18/19 04/18/19 04/18/19 04:50 04:50 05:45 WBC 9.9 RBC 2.65 L Hgb 8.2 L Hct 25.7 L MCV 97.0 MCH 30.9 MCHC 31.9 L RDW Std Deviation 55.1 H RDW Coeff of Jah 15.8 H Plt Count 142 L MPV 9.6 Immature Gran % (Auto) 0.400 Neut % (Auto) 75.4 H Lymph % (Auto) 10.8 L [place] % (Auto) 11.9 H Eos % (Auto) 1.2 Baso % (Auto) 0.3 Absolute Neuts (auto) 7.5 Absolute Lymphs (auto) 1.07 Nucleated RBC % 0 PT INR Sodium 137 Potassium 4.6 Chloride 101 Carbon Dioxide 26.0 Anion Gap 10 BUN 34 H Creatinine 5.76 H Estim Creat Clear Calc 11.42 Est GFR (MDRD) Af Amer 10 L Est GFR (MDRD) Non-Af 8 L BUN/Creatinine Ratio 5.9 L Glucose 66 L Calcium 8.7 Troponin I 0.061 H Urine Color Straw Urine Clarity Sl. Cloudy Urine pH 8.0 Ur Specific [place] 1.015 Urine Protein 100 H Urine Glucose (UA) Normal Urine Ketones Negative Urine Occult Blood 50 H Urine Nitrite Negative Urine Bilirubin Negative Urine Urobilinogen Normal Ur Leukocyte Esterase Negative Urine RBC 0-5 SEEN Urine WBC 0 SEEN Ur Squamous Epith Cells 0 SEEN Urine Bacteria 0 SEEN Urine Mucus 0 SEEN 04/18/19 06:52 WBC RBC Hgb Hct MCV MCH MCHC RDW Std Deviation RDW Coeff of Jah Plt Count MPV Immature Gran % (Auto) Neut % (Auto) Lymph % (Auto) [place] % (Auto) Eos % (Auto) Baso % (Auto) Absolute Neuts (auto) Absolute Lymphs (auto) Nucleated RBC % PT 14.5 INR 1.2 Sodium Potassium Chloride Carbon Dioxide Anion Gap BUN Creatinine Estim Creat Clear Calc Est GFR (MDRD) Af Amer Est GFR (MDRD) Non-Af BUN/Creatinine Ratio Glucose Calcium Troponin I Urine Color Urine Clarity Urine pH Ur Specific [place] Urine Protein Urine Glucose (UA) Urine Ketones Urine Occult Blood Urine Nitrite Urine Bilirubin Urine Urobilinogen Ur Leukocyte Esterase Urine RBC Urine WBC Ur Squamous Epith Cells Urine Bacteria Urine Mucus POC Glucose 04/18/19 04/18/19 04/18/19 11:10 10:44 10:07 POC Glucose 126 H 188 H 65 L Assessment/Plan All Active Problems (Last Reviewed 01/31/19 @ 13:20 by Gabriella Mansfield) Hip dislocation, right (Acute) Altered mental status (Acute) Encephalopathy acute (Ruled-out) Extremity edema (Resolved) Hyperkalemia (Resolved) Hypertensive urgency, malignant (Resolved) Impressions 1. AMS due to prolonged effect of Propofol used to sedate the pt for a closed reduction of R hip dislocation 2. Narcolepsy 3. SLE 4. ESRD on HD 5. anemia of CRF Pt awoke and is back to her baseline so she is going to be discharged back to halfway and will need to follow up with ortho Code Visit OBSV E&M: [id number] Initial observation care L2
--- NOTE | 2019-04-18 13:46 | PCM.DC.SUM ---
Discharge Date and Diagnosis - Problem List Patient Problems: Active and Suspected Problems (Last Reviewed 04/18/19 @ 13:39 by Melva Wolfe DO) Hip dislocation, right (Acute) reduced in the ED by Dr. Thao Date of Admission: 04/18/19 Date of Discharge: 04/18/19 - Primary Discharge Diagnosis Active and Suspected Problems (Last Reviewed 04/18/19 @ 13:39 by Melva Wolfe DO) Hip dislocation, right (Acute) reduced in the ED by Dr. Thao somnolence/lethargy/AMS due to prolonged effects of Propofol - Secondary Discharge Diagnosis Chronic Problems (Last Reviewed 04/18/19 @ 13:39 by Melva Wolfe DO) Prolonged QT interval (Chronic) Presence of surgically created arteriovenous shunt for hemodialysis (Chronic ~11/2017) Status post insertion of dialysis catheter (Chronic) Uncontrolled hypertension (Chronic) ESRD (end stage renal disease) on dialysis (Chronic) Chronic diarrhea (Chronic) Nonrheumatic mitral (valve) insufficiency (Chronic) Secondary pulmonary arterial hypertension (Chronic) Non-rheumatic tricuspid valve insufficiency (Chronic) End stage renal disease (Chronic) on HD Chronic anemia (Chronic) Hypertension (Chronic) Narcolepsy (Chronic) Lupus nephritis (Chronic) Status post kidney and liver biopsy (fatty liver) Degenerative disc disease, cervical (Chronic) Cervical spondylosis (Chronic) Diabetes mellitus, type II (Chronic) SLE (systemic lupus erythematosus) (Chronic) Hospital Course and Treatment Imaging Results: 04/18/19 07:36 Hip 1 view with Pelvis [RAD] Stat Clinical Impression(s) from Imaging Studies Chest X-Ray 04/18/19 04:36 IMPRESSION: Mild cardiomegaly. Central venous catheter in stable position. No evidence for acute cardiopulmonary pathology. Electronically Signed: Kwabena Bueno MD at 5:47 EDT , Service support , Hip X-Ray 04/18/19 04:36 IMPRESSION: Status post total hip replacement. Superolateral dislocation of the femoral component from the acetabular component. Electronically Signed: Kwabena Bueno MD at 5:50 EDT , Service support , Hip/Pelvis X-Ray 04/18/19 07:36 IMPRESSION: Satisfactory reduction of the right prosthetic hip joint. Electronically Signed: Jonathan Garcia, at 8:09 EDT , Service support , Laboratory Tests 04/18/19 04/18/19 04/18/19 Range/Units 11:10 10:44 10:07 WBC (4.4-11.0) K/mm3 RBC (4.2-5.4) M/mm3 Hgb (12.0-15.0) g/dL Hct (37-47) % MCV (81-99) fL MCH (27.0-32.0) pg MCHC (32-36) g/dL RDW Std Deviation (35.1-43.9) fl RDW Coeff of Jah (11.6-14.6) % Plt Count (150-450) K/mm3 MPV (6.2-12.0) fl Immature Gran % (Auto) (0.0-0.9) % Neut % (Auto) (47-70) % Lymph % (Auto) (19-41) % [place] % (Auto) (0-10) % Eos % (Auto) (0-5) % Baso % (Auto) (0-1) % Absolute Neuts (auto) (2.0-7.7) X10^3/uL Absolute Lymphs (auto) (0.83-4.51) X10^3/uL Nucleated RBC % (0-5) % PT (11.7-14.9) SECONDS INR Sodium (136-145) mmol/L Potassium (3.5-5.1) mmol/L Chloride (98-107) mmol/L Carbon Dioxide (21.0-32.0) mmol/L Anion Gap (5-15) BUN (7-18) mg/dL Creatinine (0.55-1.02) mg/dL Estim Creat Clear Calc ml/min Est GFR (MDRD) Af Amer (>60) mL/min Est GFR (MDRD) Non-Af (>60) mL/min BUN/Creatinine Ratio (10-20) RATIO Glucose (74-106) mg/dL Calcium (8.5-10.1) mg/dL Troponin I (<0.045) ng/mL Urine Color (Yellow) Urine Clarity (Clear) Urine pH (5.0 - 8.0) Ur Specific [place] (1.002-1.030) Urine Protein (Negative) mg/dl Urine Glucose (UA) (Normal) mg/dl Urine Ketones (Negative) mg/dl Urine Occult Blood (Negative) /ul Urine Nitrite (Negative) Urine Bilirubin (Negative) mg/dL Urine Urobilinogen (Normal) mg/dl Ur Leukocyte Esterase (Negative) /ul Urine RBC (0-5) /hpf Urine WBC (0-5) /hpf Ur Squamous Epith Cells (5-10) /hpf Urine Bacteria (None Seen) /hpf Urine Mucus (<or=2+) /hpf POC Glucose 126 H 188 H 65 L (70-110) mg/dL 04/18/19 04/18/19 04/18/19 Range/Units 06:52 05:45 04:50 WBC (4.4-11.0) K/mm3 RBC (4.2-5.4) M/mm3 Hgb (12.0-15.0) g/dL Hct (37-47) % MCV (81-99) fL MCH (27.0-32.0) pg MCHC (32-36) g/dL RDW Std Deviation (35.1-43.9) fl RDW Coeff of Jah (11.6-14.6) % Plt Count (150-450) K/mm3 MPV (6.2-12.0) fl Immature Gran % (Auto) (0.0-0.9) % Neut % (Auto) (47-70) % Lymph % (Auto) (19-41) % [place] % (Auto) (0-10) % Eos % (Auto) (0-5) % Baso % (Auto) (0-1) % Absolute Neuts (auto) (2.0-7.7) X10^3/uL Absolute Lymphs (auto) (0.83-4.51) X10^3/uL Nucleated RBC % (0-5) % PT 14.5 (11.7-14.9) SECONDS INR 1.2 Sodium 137 (136-145) mmol/L Potassium 4.6 (3.5-5.1) mmol/L Chloride 101 (98-107) mmol/L Carbon Dioxide 26.0 (21.0-32.0) mmol/L Anion Gap 10 (5-15) BUN 34 H (7-18) mg/dL Creatinine 5.76 H (0.55-1.02) mg/dL Estim Creat Clear Calc 11.42 ml/min Est GFR (MDRD) Af Amer 10 L (>60) mL/min Est GFR (MDRD) Non-Af 8 L (>60) mL/min BUN/Creatinine Ratio 5.9 L (10-20) RATIO Glucose 66 L (74-106) mg/dL Calcium 8.7 (8.5-10.1) mg/dL Troponin I 0.061 H (<0.045) ng/mL Urine Color Straw (Yellow) Urine Clarity Sl. Cloudy (Clear) Urine pH 8.0 (5.0 - 8.0) Ur Specific [place] 1.015 (1.002-1.030) Urine Protein 100 H (Negative) mg/dl Urine Glucose (UA) Normal (Normal) mg/dl Urine Ketones Negative (Negative) mg/dl Urine Occult Blood 50 H (Negative) /ul Urine Nitrite Negative (Negative) Urine Bilirubin Negative (Negative) mg/dL Urine Urobilinogen Normal (Normal) mg/dl Ur Leukocyte Esterase Negative (Negative) /ul Urine RBC 0-5 SEEN (0-5) /hpf Urine WBC 0 SEEN (0-5) /hpf Ur Squamous Epith Cells 0 SEEN (5-10) /hpf Urine Bacteria 0 SEEN (None Seen) /hpf Urine Mucus 0 SEEN (<or=2+) /hpf POC Glucose (70-110) mg/dL 04/18/19 Range/Units 04:50 WBC 9.9 (4.4-11.0) K/mm3 RBC 2.65 L (4.2-5.4) M/mm3 Hgb 8.2 L (12.0-15.0) g/dL Hct 25.7 L (37-47) % MCV 97.0 (81-99) fL MCH 30.9 (27.0-32.0) pg MCHC 31.9 L (32-36) g/dL RDW Std Deviation 55.1 H (35.1-43.9) fl RDW Coeff of Jah 15.8 H (11.6-14.6) % Plt Count 142 L (150-450) K/mm3 MPV 9.6 (6.2-12.0) fl Immature Gran % (Auto) 0.400 (0.0-0.9) % Neut % (Auto) 75.4 H (47-70) % Lymph % (Auto) 10.8 L (19-41) % [place] % (Auto) 11.9 H (0-10) % Eos % (Auto) 1.2 (0-5) % Baso % (Auto) 0.3 (0-1) % Absolute Neuts (auto) 7.5 (2.0-7.7) X10^3/uL Absolute Lymphs (auto) 1.07 (0.83-4.51) X10^3/uL Nucleated RBC % 0 (0-5) % PT (11.7-14.9) SECONDS INR Sodium (136-145) mmol/L Potassium (3.5-5.1) mmol/L Chloride (98-107) mmol/L Carbon Dioxide (21.0-32.0) mmol/L Anion Gap (5-15) BUN (7-18) mg/dL Creatinine (0.55-1.02) mg/dL Estim Creat Clear Calc ml/min Est GFR (MDRD) Af Amer (>60) mL/min Est GFR (MDRD) Non-Af (>60) mL/min BUN/Creatinine Ratio (10-20) RATIO Glucose (74-106) mg/dL Calcium (8.5-10.1) mg/dL Troponin I (<0.045) ng/mL Urine Color (Yellow) Urine Clarity (Clear) Urine pH (5.0 - 8.0) Ur Specific [place] (1.002-1.030) Urine Protein (Negative) mg/dl Urine Glucose (UA) (Normal) mg/dl Urine Ketones (Negative) mg/dl Urine Occult Blood (Negative) /ul Urine Nitrite (Negative) Urine Bilirubin (Negative) mg/dL Urine Urobilinogen (Normal) mg/dl Ur Leukocyte Esterase (Negative) /ul Urine RBC (0-5) /hpf Urine WBC (0-5) /hpf Ur Squamous Epith Cells (5-10) /hpf Urine Bacteria (None Seen) /hpf Urine Mucus (<or=2+) /hpf POC Glucose (70-110) mg/dL none Operations: None Procedures: - - Closed reduction of right hip dislocation in the emergency department by Dr. Thao Summary of Care Provided: The patient is a 48 year old F who has had a R hip replacement. She slid out of a chair on 04/17/19 and then c/o R hip pain. She had an appt with orthopedics on 04/18/19 but in the middle of the night on 04/18 she felt the pain was unbearable and she was brought to the ED at [facility] early in the morning hours. XRAY revealed a dislocation of the R hip with no fx. She received 40 mg of Propofol and had closed reduction of the R hip performed by Dr. Thao. After the procedure she was very lethargic but aroused to calling her name. VS were stable and the pulse ox on RA ranged from 97-100% on RA. She was admitted for observation to allow for the sedation to wear off. She later became alert and was able to answer questions appropriately and she was [facility]. She will follow up with ortho this week. This note was generated with [employer] dictation software. It may contain incorrect words, spelling, and punctuation that were not noted in checking the note before signing. Patient Problems: Active and Suspected Problems (Last Reviewed 04/18/19 @ 13:39 by Melva Wolfe DO) Hip dislocation, right (Acute) reduced in the ED by Dr. Thao - Physical Exam Vital Signs Temp Pulse Resp BP Pulse Ox 97.6 F L 86 18 173/105 H 98 04/18/19 09:51 04/18/19 09:51 04/18/19 09:51 04/18/19 09:51 04/18/19 09:51 Oxygen Flow Rate (L/min) [2] 100 Oxygen Delivery Method [2] Room Air Oxygen Delivery Method [1 ( Room Air Initial Baseline)] Oxygen Delivery Method Room Air Weight: 153 lb 7.068 oz Body Mass Index (BMI) 24.6 Finger Stick Blood Glucose 131 Laboratory Tests Past 24 Hrs 04/18/19 04/18/19 04/18/19 04:50 04:50 05:45 WBC 9.9 RBC 2.65 L Hgb 8.2 L Hct 25.7 L MCV 97.0 MCH 30.9 MCHC 31.9 L RDW Std Deviation 55.1 H RDW Coeff of Jah 15.8 H Plt Count 142 L MPV 9.6 Immature Gran % (Auto) 0.400 Neut % (Auto) 75.4 H Lymph % (Auto) 10.8 L [place] % (Auto) 11.9 H Eos % (Auto) 1.2 Baso % (Auto) 0.3 Absolute Neuts (auto) 7.5 Absolute Lymphs (auto) 1.07 Nucleated RBC % 0 PT INR Sodium 137 Potassium 4.6 Chloride 101 Carbon Dioxide 26.0 Anion Gap 10 BUN 34 H Creatinine 5.76 H Estim Creat Clear Calc 11.42 Est GFR (MDRD) Af Amer 10 L Est GFR (MDRD) Non-Af 8 L BUN/Creatinine Ratio 5.9 L Glucose 66 L Calcium 8.7 Troponin I 0.061 H Urine Color Straw Urine Clarity Sl. Cloudy Urine pH 8.0 Ur Specific [place] 1.015 Urine Protein 100 H Urine Glucose (UA) Normal Urine Ketones Negative Urine Occult Blood 50 H Urine Nitrite Negative Urine Bilirubin Negative Urine Urobilinogen Normal Ur Leukocyte Esterase Negative Urine RBC 0-5 SEEN Urine WBC 0 SEEN Ur Squamous Epith Cells 0 SEEN Urine Bacteria 0 SEEN Urine Mucus 0 SEEN 04/18/19 06:52 WBC RBC Hgb Hct MCV MCH MCHC RDW Std Deviation RDW Coeff of Jah Plt Count MPV Immature Gran % (Auto) Neut % (Auto) Lymph % (Auto) [place] % (Auto) Eos % (Auto) Baso % (Auto) Absolute Neuts (auto) Absolute Lymphs (auto) Nucleated RBC % PT 14.5 INR 1.2 Sodium Potassium Chloride Carbon Dioxide Anion Gap BUN Creatinine Estim Creat Clear Calc Est GFR (MDRD) Af Amer Est GFR (MDRD) Non-Af BUN/Creatinine Ratio Glucose Calcium Troponin I Urine Color Urine Clarity Urine pH Ur Specific [place] Urine Protein Urine Glucose (UA) Urine Ketones Urine Occult Blood Urine Nitrite Urine Bilirubin Urine Urobilinogen Ur Leukocyte Esterase Urine RBC Urine WBC Ur Squamous Epith Cells Urine Bacteria Urine Mucus POC Glucose 04/18/19 04/18/19 04/18/19 11:10 10:44 10:07 POC Glucose 126 H 188 H 65 L Home Medications: Medications to take at Discharge Duloxetine Hcl [Cymbalta] 120 mg PO DAILY 10/01/16 Hydroxychloroquine [Plaquenil] 200 mg PO BIDCM 10/01/16 Atorvastatin Calcium [Lipitor] 20 mg PO QHS 01/20/18 Sevelamer Carbonate [Renvela] 1,600 mg PO TIDCM PRN 08/12/18 Prednisone 5 mg PO DAILY 09/09/18 Cevimeline HCl 30 mg PO TID 11/17/18 Clindamycin Phos/Benzoyl Perox [Clinda-Benzoyl Perox 1-5% Pump] 1 applic TP BID 11/17/18 cholecalciferol (vitamin D3) 50,000 unit capsule 50,000 unit PO QMONTH cap 01/31/19 vitamin B complex and vitamin C no.20-folic acid 1 mg capsule 1 cap PO DAILY 01/31/19 Aspirin 81 mg PO BID 04/18/19 Baclofen 10 mg PO TID 04/18/19 Carvedilol [Coreg (Beta Cirilo)] 12.5 mg PO BID 04/18/19 CycloSPORINE Ophthalmic [Restasis Ophthalmic] 1 drp EACH EYE BID 04/18/19 Dextroamphetamine/Amphetamine [Adderall 15 mg Tablet] 1 tab PO DAILY PRN 04/18/19 Docusate Sodium 100 mg PO BID PRN PRN 04/18/19 Ergocalciferol (Vitamin D2) [Vitamin D2] 50 mcg PO QMONTH 04/18/19 Famotidine 40 mg PO BID 04/18/19 Ibuprofen 200 mg PO Q4H PRN PRN 04/18/19 Lidocaine 5 gm TOPICAL BID PRN PRN 04/18/19 Montelukast [Singulair] 1 tab PO QHS 04/18/19 Nifedipine [Nifedipine ER] 90 mg PO DAILY 04/18/19 Ondansetron [Zofran Odt] 4 mg PO Q8H PRN PRN 04/18/19 Primary Care Physician: Mitchell Bowen Chi, MD [Primary Care Provider] - Please follow up with your Primary Care Physician in: as needed [facility] Minutes spent on discharge:: 25 Medical Necessity - Tobacco Use Smoking Status: Never smoker Tobacco Use: Non-smoker Meaningful Use Info Meaningful Use Diagnoses (Choose all that apply): None applicable Code Visit OBSV E&M: 54580 Observation care discharge
--- NOTE | 2019-04-18 14:06 | CASEMGMT ---
Faxed orders to [place]. Called [facility] and arranged for patient to get picked up at 230 via cot due to her confusion and dislocated hip. SW notified RN, guidance secretary, and patient's brother Isra. Plan: d/c back to [place] under skilled level of care. [facility] transported via cot. Keren GREER MSW
== END 2019-04-18 14:33 | disposition skilled nursing facility (03) | DRG 559 ==
LOC: ED 05:12 → PCU 08:45
PROVIDERS: Admitting Provider Internal Medicine; Emergency Provider Emergency Medicine; Family Provider Family Medicine Geriatric Medicine; PCP Family Medicine Geriatric Medicine; Visit Provider Internal Medicine
DX: T84.020A Dislocation of internal right hip prosthesis, initial encounter (principal); G93.41 Metabolic encephalopathy; N18.6 End stage renal disease; I12.0 Hypertensive chronic kidney disease with stage 5 chronic kidney disease or end stage renal disease; Y79.2 Prosthetic and other implants, materials and accessory orthopedic devices associated with adverse incidents; W07.XXXA Fall from chair, initial encounter; E11.22 Type 2 diabetes mellitus with diabetic chronic kidney disease; D63.1 Anemia in chronic kidney disease; I45.81 Long QT syndrome; I34.0 Nonrheumatic mitral (valve) insufficiency; I27.21 Secondary pulmonary arterial hypertension; I36.1 Nonrheumatic tricuspid (valve) insufficiency; G47.419 Narcolepsy without cataplexy; M32.14 Glomerular disease in systemic lupus erythematosus; M47.812 Spondylosis without myelopathy or radiculopathy, cervical region; Z79.82 Long term (current) use of aspirin; Z96.643 Presence of artificial hip joint, bilateral; Z99.2 Dependence on renal dialysis; K76.0 Fatty (change of) liver, not elsewhere classified; M50.30 Other cervical disc degeneration, unspecified cervical region; Z82.49 Family history of ischemic heart disease and other diseases of the circulatory system; Z83.3 Family history of diabetes mellitus
CPT/HCPCS: 71045; 73501; 73502; 80048; 81001; 82962; 84484; 85025; 85610; 93005; 99152; 99285; J7030; P9612; A4216

== ENCOUNTER 2019-04-30 02:48 | Observation (INO) | payer MEDICARE, MEDICAID, SELFPAY ==
[2019-04-18 09:53] VITALS: BMI 24.6
[2019-04-30] VITALS (20 sets, daily range): BP systolic 149–244; BP diastolic 81–198; PULSE 75–93; RESP 10–23; TEMP 36.6–37.2; O2SAT 97–100; BMI 30.8; BMI 29.0; BMI 29.1
--- NOTE | 2019-04-30 03:17 | RAD_ITS ---
STUDY: X-RAY - PELVIS AND RIGHT HIP REASON FOR EXAM: Female, 48 years old. Hip pain TECHNIQUE: 2 views of the pelvis and hip. COMPARISON: None. FINDINGS: There is a non-specific bowel gas pattern. Normal visualized soft tissue structures. Normal bilateral iliac wings, sacroiliac joints and visualized sacrum. Normal right superior and inferior pubic rami. Normal pubic symphysis. There is dislocation of the right hip arthroplasty. RAD/Hip Min 2 Views (Portable) IMPRESSION: There is dislocation of the right hip arthroplasty. Electronically Signed: Dillan Kline, at 3:53 EDT Tel , Service support ,
--- NOTE | 2019-04-30 03:17 | ED.VIS.LOWEX ---
History of Present Illness Chief Complaint: Lower Extremity Injury Informant: Patient Onset: Today Context: Sudden Onset - bent over, leaning to side, to wipe after using the toilet Timing: Continuous Quality of Pain: Aching Location: R hip Current Severity: Severe Maximum Severity: Severe Worsened by: moving Relieved by: nothing Associated Symptoms: Loss of Funtion. Negative for: Parasthesia, Weakness Narrative: Feels similar to prior hip dislocation for which she is wearing a knee immobilizer/brace. She is in a [facility] because of aspiration pneumonia. Denies falling or blunt injury. - Past Medical History (1) Hip dislocation, right Status: Chronic Comment: reduced in the ED by Dr. Thao (2) Cervical spondylosis Status: Chronic (3) Chronic anemia Status: Chronic (4) Chronic diarrhea Status: Chronic (5) Degenerative disc disease, cervical Status: Chronic (6) Diabetes mellitus, type II Status: Chronic (7) ESRD (end stage renal disease) on dialysis Status: Chronic (8) Lupus nephritis Status: Chronic Comment: Status post kidney and liver biopsy (fatty liver) (9) Narcolepsy Status: Chronic (10) Non-rheumatic tricuspid valve insufficiency Status: Chronic (11) Nonrheumatic mitral (valve) insufficiency Status: Chronic (12) Presence of surgically created arteriovenous shunt for hemodialysis Status: Chronic (13) SLE (systemic lupus erythematosus) Status: Chronic (14) Secondary pulmonary arterial hypertension Status: Chronic (15) Uncontrolled hypertension Status: Chronic Past Medical History - Allergies and Home Meds Allergies/Adverse Reactions: Allergies LONG Inhibitors Allergy (Verified 04/30/19 03:31) Angioedema adhesive Allergy (Verified 04/30/19 03:31) Rash lisinopril Allergy (Verified 04/30/19 03:31) Angioedema Sulfa (Sulfonamide Antibiotics) Allergy (Verified 04/30/19 03:31) Rash sulfamethoxazole [From Bactrim] Allergy (Verified 04/30/19 03:31) Rash trimethoprim [From Bactrim] Allergy (Verified 04/30/19 03:31) Rash Angioderm Adverse Reaction (Unknown, Uncoded 04/30/19 03:31) Unknown Surgical History: - - failed AVF left arm, AVF right arm Smoking Status: Never smoker - Family History Maternal Family History: Family History (Last Reviewed 04/18/19 @ 13:40 by Melva Wolfe DO) Mother Hypertension Kidney disease ALS (amyotrophic lateral sclerosis) Father Heart disease Hypertension Kidney disease Diabetes Family History: Reports: Diabetes, High Cholesterol, Heart Disease, Hypertension, Renal Disease, - Paternal Family History: Family History (Last Reviewed 04/18/19 @ 13:40 by Melva Wolfe DO) Mother Hypertension Kidney disease ALS (amyotrophic lateral sclerosis) Father Heart disease Hypertension Kidney disease Diabetes Family History: Reports: Diabetes, High Cholesterol, Heart Disease, Hypertension, Renal Disease Sibling Family History: Family History (Last Reviewed 04/18/19 @ 13:40 by Melva Wolfe DO) Mother Hypertension Kidney disease ALS (amyotrophic lateral sclerosis) Father Heart disease Hypertension Kidney disease Diabetes Family History: Reports: Diabetes Review of Systems ROS: Unable to Obtain - very limited informant; it hurts. my hip. Musculoskeletal: Reports: Extremity Pain Skin: Denies: Rash, Wounds Neurological: Denies: Weakness, Numbness Physical Exam Vital Signs/Narrative: Vital Signs Temp Pulse Resp BP Pulse Ox 04/30/19 02:50 97.8 F 83 14 206/122 H 99 Inital Vital Signs reviewed: Yes - Extremity Exam Right Hip: Deformity - shortened. foot appears fairly neutral. tender greater trochanter., Limited ROM, - - knee immobilizer in place w/ extension to right flank brace. Negative for: Edema General: Well nourished, Well developed Head: Normocephalic, Atraumatic Neck: Nontender, Full ROM Cardiovascular: Regular rate, Regular rhythm, No murmurs Respiratory: No distress, CTA bilaterally, Chest nontender Skin: Normal color, No rash, No Trauma Neurological: Alert, Oriented x3, Cranial nerves II-XII grossly intact, Normal Strength, Normal Sensation Psychological: Normal affect, Normal Mood Diagnostic/Tx/Re-eval Clinical Impression(s) from Imaging Studies Hip X-Ray 04/30/19 03:17 IMPRESSION: There is dislocation of the right hip arthroplasty. Electronically Signed: Dillan Kline, at 3:53 EDT Tel , Service support , Hip X-Ray 04/30/19 05:09 IMPRESSION: Reduced dislocation of the hip arthroplasty. There is no evidence of fracture. Electronically Signed: Dillan Kline, at 5:27 EDT Tel , Service support , Brain CT 04/30/19 07:04 IMPRESSION: No CT evidence of acute intracranial hemorrhage. Electronically Signed: Shelia Mathis MD at 8:07 EDT , Service support , - Medical Decision Making There was delay in obtaining IV access because she was a very difficult stick, therefore there was delay in providing sedation and performing the reduction. This was eventually done without complication. Patient arrives with a knee immobilizer with a proximal brace extension, it was replaced after verifying closed reduction. However even after sedation with propofol her pressure continued to be very high with systolics around 220. She was given hydralazine 20 mg. On reevaluation somehow her blood pressure is higher at 231/117. She appears to have old bruising on her forehead from an injury that did not apparently occur tonight. However, the patient tells the nurse that she got them when she was here in the ER earlier today and then agrees that as the nurse does not remember, she does not either. Given this, although the patient wants to leave and go back home, I am going to scan her head to ensure there is nothing new, since she seems confused. We will also continue to treat her blood pressure. Head CT shows nothing acute. She was also given labetalol 20 mg. Her pressure came down transiently but multiple readings thereafter are 220-230 systolic, 100s diastolic. The patient states now sometimes she is high before dialysis, and down to 110 afterwards. She is not due for dialysis until another 24 hours from now, and the patient has already been here for 5 hours. Initially when I asked her about her blood pressure and whether it was usually high, she said no. I am not sure what her baseline mental status is. I spoke with 1 of the hospitalist who reviewed her visit from November, she was indeed having systolic blood pressures in the 200s all the way to 240 before dialysis and then afterwards she was 130s, and at one point became hypotensive in the 80s. She usually gets dialysis Wednesday/Wednesday/Wednesday, it is Wednesday morning. We will have nursing call the [facility] to see what her pressures usually are in the weekends, and how she compares to her baseline mental status now. If she is currently at baseline, I agree with the hospitalist's judgment that she can probably go back, get her 3 oral antihypertensives today, and get dialyzed tomorrow which will probably get her pressure down. Nursing discussed with staff at the [facility], her pressures over the weekends are usually 150 systolic, give or take. Her mental status is probably not far off normal, although it is difficult to compare when SNF staff states she is usually A&Ox2 only. Plan will be for admission. Labs will be sent. Procedures Procedure(s): 1. Procedural sedation --patient has been n.p.o. for over 6 hours. Given propofol total of 80 mg, just over 1 mg/kg. This provided good sedation with no complications. IV fluids were going and oxygen was being administered simultaneously. Patient recovered uneventfully. She remained hypertensive even with sedation. 2. Closed right hip reduction -- initially nonforceful manipulation was attempted but was unsuccessful. With assistants holding the pelvis down to the bed, and with simultaneous internal rotation and abduction, I forcibly attempted to distract the femur forward/anteriorly, and eventually I and nursing were both able to feel a definitive clunk in the right hip. We then straightened her leg back out, and it was apparent that the internal rotation deformity was relaxed and her shortening was reduced to symmetric length. This was confirmed on postreduction x-rays, and she was neurovascularly intact distally afterwards. ED Disposition - Plan for ED Patient: Disposition: Acute Care Hospital [facility] Diagnosis: Dislocation of hip, right, closed, Accelerated hypertension, ESRD (end stage renal disease) on dialysis
[2019-04-30] MEDS: Morphine 4 MG/ML Syringe IV (04:31)
--- NOTE | 2019-04-30 05:09 | RAD_ITS ---
STUDY: X-RAY - PELVIS AND RIGHT HIP REASON FOR EXAM: Female, 48 years old. Post reduction TECHNIQUE: 2 views of the pelvis and hip. COMPARISON: None. FINDINGS: There is a non-specific bowel gas pattern. Normal visualized soft tissue structures. Normal bilateral iliac wings, sacroiliac joints and visualized sacrum. Normal bilateral superior and inferior pubic rami. Normal pubic symphysis. Normal bilateral ischial tuberosities. Reduced dislocation of the hip arthroplasty. There is no evidence of fracture. RAD/Hip Min 2 Views (Portable) IMPRESSION: Reduced dislocation of the hip arthroplasty. There is no evidence of fracture. Electronically Signed: Dillan Kline, at 5:27 EDT Tel , Service support ,
[2019-04-30] MEDS: Propofol 200 MG/20 ML Vial IV BOLUS (05:21)
[2019-04-30] MEDS: hydrALAZINE 20 MG/ML Vial IV (06:14)
--- NOTE | 2019-04-30 07:04 | CT_ITS ---
STUDY: CT BRAIN WITHOUT CONTRAST REASON FOR EXAM: Female, 48 years old. Closed head injury after recent trauma. RADIATION DOSAGE (If Supplied By Facility): CTDIvol = ( 44.99 ) mGy, DLP = ( 796.11 ) mGycm TECHNIQUE: Transaxial CT imaging of the brain was performed without administration of intravenous contrast material. Multiplanar reformations are submitted for interpretation. Individualized dose optimization techniques were used for this CT. COMPARISON: November 17, 2018. FINDINGS: Normal soft tissue structures. Normal calvarium. Normal size ventricles and extra-axial spaces for the patient's age. Normal white matter tracts of the cerebral hemispheres. There are small punctate calcifications of the basal ganglia which are seen in the aging brain as a normal variant. Normal brainstem. Normal cerebellum. There is no intracranial hemorrhage. There is moderate atherosclerotic calcification of the intracranial arteries. The patient has had surgical resection of bilateral ostiomeatal complexes as well as the superior turbinates. Patient also has had multiple ethmoidectomies. CT/Brain/Head without Contrast IMPRESSION: No CT evidence of acute intracranial hemorrhage. Electronically Signed: Shelia Mathis MD at 8:07 EDT , Service support ,
[2019-04-30 09:00] LABS: Absolute Lymphocyte Count 0.95 X10^3/uL (0.83-4.51); Absolute Neutrophil Count 10.8 X10^3/uL (2.0-7.7); Basophil# 0.01 X10^3/uL; Basophil% 0.1 % (0-1); Eosinophil# 0.02 X10^3/uL; Eosinophils% 0.2 % (0-5); Hematocrit 26.2 % (37-47); Hemoglobin 8.5 g/dL (12.0-15.0); Lymphocyte # 0.95 X10^3/ul (4.0); Lymphocyte % 7.3 % (19-41); Mean Corp Hgb Conc 32.4 g/dL (32-36); Mean Corpuscular Hgb 30.4 pg (27.0-32.0); Mean Corpuscular Volume 93.6 fL (81-99); Mean Platelet Vol. 8.8 fl (6.2-12.0); Monocyte# 1.26 X10^3/uL; Monocyte% 9.6 % (0-10); NRBC Flagged by Analyzer 0 % (0-5); Neutrophil # 10.76 X10^3/uL (2.7-7.7); Neutrophil % 82.2 % (47-70); Platelet Count 152 K/mm3 (150-450); RBC Distribution Width CV 16.1 % (11.6-14.6); RBC Distribution Width SD 54.9 fl (35.1-43.9); White Blood Count 13.1 K/mm3 (4.4-11.0)
[2019-04-30 09:47] LABS: Anion Gap 8 (5-15); BUN 29 mg/dL (7-18); BUN/Creat Ratio 5.3 RATIO (10-20); Chloride 92 mmol/L (98-107); Creatinine, Serum 5.48 mg/dL (0.55-1.02); EST Glomerular Filtration Rate 9 mL/min (>60); Est Glom Filt Rate - Afr Amer 11 mL/min (>60); Estimated Creatinine Clearance 9.68 ml/min; Glucose 65 mg/dL (74-106); Potassium 3.8 mmol/L (3.5-5.1); Sodium Level 130 mmol/L (136-145)
[2019-04-30] MEDS: cloNIDine HCl 0.1 MG Tablet 0.2 MG PO (10:19)
[2019-04-30] MEDS: Carvedilol 25 MG Tablet PO ×2 (10:19→21:21)
--- NOTE | 2019-04-30 10:45 | PCM.HP.STD ---
<Cyn Pat - Last Filed: 04/30/19 11:25> Problem List (1) Hip dislocation, right Status: Chronic Qualifiers: Encounter type: initial encounter Qualified Code(s): S73.004A - Unspecified dislocation of right hip, initial encounter Comment: reduced in the ED by Dr. Thao (2) Dislocation of hip, right, closed Status: Acute (3) Accelerated hypertension Status: Acute (4) Prolonged QT interval Status: Chronic (5) Presence of surgically created arteriovenous shunt for hemodialysis Status: Chronic (6) Status post insertion of dialysis catheter Status: Chronic (7) Altered mental status Status: Chronic Qualifiers: Altered mental status type: somnolence Qualified Code(s): R40.0 - Somnolence Comment: due to sedation from Propofol used to reduce the R hip dislocation in the ED (8) Uncontrolled hypertension Status: Chronic (9) ESRD (end stage renal disease) on dialysis Status: Chronic (10) Chronic diarrhea Status: Chronic (11) Encephalopathy acute Status: Ruled-out (12) Nonrheumatic mitral (valve) insufficiency Status: Chronic (13) Secondary pulmonary arterial hypertension Status: Chronic (14) Non-rheumatic tricuspid valve insufficiency Status: Chronic (15) End stage renal disease Status: Chronic Comment: on HD (16) Chronic anemia Status: Chronic (17) Hypertension Status: Chronic Qualifiers: Hypertension type: essential hypertension (18) Narcolepsy Status: Chronic (19) Lupus nephritis Status: Chronic Comment: Status post kidney and liver biopsy (fatty liver) (20) Degenerative disc disease, cervical Status: Chronic (21) Cervical spondylosis Status: Chronic (22) Diabetes mellitus, type II Status: Chronic Qualifiers: Diabetes mellitus complication detail: with other oral complications Qualified Code(s): E11.638 - Type 2 diabetes mellitus with other oral complications (23) SLE (systemic lupus erythematosus) Status: Chronic History of Present Illness Date of Admission: 04/30/19 Chief Complaint: Right hip pain, elevated blood pressure. The patient is a 48 year old F who presents to the emergency room due to right hip pain and was also noted to have elevated blood pressure. Patient was recently discharged 04/18/2019 where she was treated for right hip dislocation and had altered mental status following propofol. Patient again had a fall at SNF and complains of right hip pain. Noted to have right hip dislocation with closed reduction in ER. She received propofol again but does not appear to be significantly confused, is drowsy and falls asleep during HPI. She complains of right hip and right leg tenderness. Otherwise denies current complaints. 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 Past Medical History Past Medical History (Chronic Problems): Chronic Problems (Last Reviewed 04/18/19 @ 13:39 by Melva Wolfe DO) Hip dislocation, right (Chronic) reduced in the ED by Dr. Thao Prolonged QT interval (Chronic) Presence of surgically created arteriovenous shunt for hemodialysis (Chronic ~11/2017) Status post insertion of dialysis catheter (Chronic) Altered mental status (Chronic) due to sedation from Propofol used to reduce the R hip dislocation in the ED Uncontrolled hypertension (Chronic) ESRD (end stage renal disease) on dialysis (Chronic) Chronic diarrhea (Chronic) Nonrheumatic mitral (valve) insufficiency (Chronic) Secondary pulmonary arterial hypertension (Chronic) Non-rheumatic tricuspid valve insufficiency (Chronic) End stage renal disease (Chronic) on HD Chronic anemia (Chronic) Hypertension (Chronic) Narcolepsy (Chronic) Lupus nephritis (Chronic) Status post kidney and liver biopsy (fatty liver) Degenerative disc disease, cervical (Chronic) Cervical spondylosis (Chronic) Diabetes mellitus, type II (Chronic) SLE (systemic lupus erythematosus) (Chronic) Medical History: Medical History (Last Reviewed 04/18/19 @ 13:39 by Melva Wolfe DO) Prolonged QT interval (Chronic) R94.31 Chronic diarrhea (Chronic) K52.9 Nonrheumatic mitral (valve) insufficiency (Chronic) I34.0 Secondary pulmonary arterial hypertension (Chronic) I27.21 Non-rheumatic tricuspid valve insufficiency (Chronic) I36.1 End stage renal disease (Chronic) N18.6 on HD Chronic anemia (Chronic) D64.9 Hypertension (Chronic) I10 Narcolepsy (Chronic) G47.419 Lupus nephritis (Chronic) M32.14 Status post kidney and liver biopsy (fatty liver) Degenerative disc disease, cervical (Chronic) M50.30 Cervical spondylosis (Chronic) M47.812 Diabetes mellitus, type II (Chronic) E11.9 SLE (systemic lupus erythematosus) (Chronic) M32.9 Allergies LONG Inhibitors Allergy (Verified 04/30/19 03:31) Angioedema adhesive Allergy (Verified 04/30/19 03:31) Rash lisinopril Allergy (Verified 04/30/19 03:31) Angioedema Sulfa (Sulfonamide Antibiotics) Allergy (Verified 04/30/19 03:31) Rash sulfamethoxazole [From Bactrim] Allergy (Verified 04/30/19 03:31) Rash trimethoprim [From Bactrim] Allergy (Verified 04/30/19 03:31) Rash Angioderm Adverse Reaction (Unknown, Uncoded 04/30/19 03:31) Unknown Home Medications: Ambulatory Orders Medication Instructions Recorded Duloxetine Hcl [Cymbalta] 60 mg PO DAILY 10/01/16 Hydroxychloroquine [Plaquenil] 200 mg PO DAILY 10/01/16 Sevelamer Carbonate [Renvela] 1,600 mg PO TID 08/12/18 Prednisone 5 mg PO DAILY 09/09/18 Cevimeline HCl 30 mg PO TID 11/17/18 Clindamycin Phos/Benzoyl Perox 1 applic TP BID 11/17/18 [Clinda-Benzoyl Perox 1-5% Pump] Aspirin 81 mg PO BID 04/18/19 Baclofen 10 mg PO TID 04/18/19 Carvedilol [Coreg (Beta Cirilo)] 12.5 mg PO BID 04/18/19 CycloSPORINE Ophthalmic [Restasis 1 drp EACH EYE BID 04/18/19 Ophthalmic] Dextroamphetamine/Amphetamine 1 tab PO DAILY PRN 04/18/19 [Adderall 15 mg Tablet] Docusate Sodium 100 mg PO BID PRN PRN 04/18/19 Ergocalciferol (Vitamin D2) 50 mcg PO QMONTH 04/18/19 [Vitamin D2] Famotidine 40 mg PO BID 04/18/19 Ibuprofen 200 mg PO Q4H PRN PRN 04/18/19 Lidocaine 5 gm TOPICAL BID PRN PRN 04/18/19 Montelukast [Singulair] 1 tab PO QHS 04/18/19 Nifedipine [Nifedipine ER] 90 mg PO DAILY 04/18/19 Ondansetron [Zofran Odt] 4 mg PO Q8H PRN PRN 04/18/19 Acetaminophen [Tylenol Extra 1,000 mg PO TID PRN 04/30/19 Strength] B Complex with Vitamin C 1 ea PO DAILY 04/30/19 [B-Complex Plus Vitamin C] Clonidine HCl [Catapres] 0.1 mg PO Q6H PRN 04/30/19 Fluticasone 0.05% [Flonase Nasal 2 spray NASAL DAILY 04/30/19 Paul] Simvastatin [Zocor] 40 mg PO QHS 04/30/19 Sod Chlor,Bicarb/Squeez Bottle 2 spray NS DAILY PRN 04/30/19 [[place] Saline Nasal Rinse Kit] Surgical History: Surgical History (Last Reviewed 04/30/19 @ 10:58 by BEVERLEY Melchor) Presence of surgically created arteriovenous shunt for hemodialysis (Chronic) Onset Date: ~11/2017 Z99.2 Status post insertion of dialysis catheter (Chronic) Z95.828, Z99.2 History of esophagogastroduodenoscopy (EGD) Z98.890 S/P colonoscopy Z98.890 S/P lymph node biopsy Z98.890 S/P nasal polypectomy Z98.890 Status post carpal tunnel release Z98.890 Status post total hip replacement, bilateral Z96.643 port removed Surgical History: - - failed AVF left arm, AVF right arm Psychiatric History: Depression [employer] History: No pertinent [employer] history Lives: [facility] Smoking Status: Never smoker Alcohol: None Drugs: None - *Family History Maternal Family History: Family History (Last Reviewed 04/30/19 @ 10:58 by BEVERLEY Melchor) Mother Hypertension Kidney disease ALS (amyotrophic lateral sclerosis) Father Heart disease Hypertension Kidney disease Diabetes History Items: Diabetes, High Cholesterol, Heart Disease, Hypertension, Renal Disease, - Paternal Family History: Family History (Last Reviewed 04/30/19 @ 10:58 by BEVERLEY Melchor) Mother Hypertension Kidney disease ALS (amyotrophic lateral sclerosis) Father Heart disease Hypertension Kidney disease Diabetes History Items: Diabetes, High Cholesterol, Heart Disease, Hypertension, Renal Disease Sibling Family History: Family History (Last Reviewed 04/30/19 @ 10:58 by BEVERLEY Melchor) Mother Hypertension Kidney disease ALS (amyotrophic lateral sclerosis) Father Heart disease Hypertension Kidney disease Diabetes History Items: Diabetes Review of Systems Constitutional: Denies: Chills, Fever, Weight Change HEENT: Denies: Head Aches, Sinus Congestion, Sinus Drainage Cardiovascular: Denies: Chest Pain, Edema, Palpitations, Syncope Respiratory: Denies: Cough, Shortness of breath at rest, Sputum production Gastrointestinal: Denies: Abdominal Pain, Nausea, Vomiting Genitourinary: Denies: Dysuria Musculoskeletal: Reports: - - Right hip and leg pain Skin: Reports: - - Multiple areas of ecchymosis. Denies: Rash, Wounds Neurological: Denies: Numbness, Tingling, Focal weakness Psychiatric: Reports: Anxiety, Depression Hematologic/ Lymphatic: Denies: Easy Bruising, Easy Bleeding VTE Information - Inpt Only VTE Present on Admission: No VTE Mechan Device Prophylaxis: None VTE Pharm Prophylaxis ordered?: Yes Patient Problems: Active and Suspected Problems (Last Reviewed 04/18/19 @ 13:39 by Melva Wolfe DO) Dislocation of hip, right, closed (Acute) Accelerated hypertension (Acute) - Physical Exam General: No apparent distress, - - Intermittently drowsy, A&O x2 HEENT: Atraumatic, PERRLA, EOMI, Normocephalic Neck: Supple, No JVD, Negative Carotid Bruits Lungs: Clear to auscultation, Normal air movement Cardiovascular: Regular rate, Regular Rhythm, Normal S1, Normal S2, No murmurs Abdomen: Bowel Sounds Present, Soft, Non Tender, Non-Distended Extremities: No clubbing, No cyanosis, No edema, Capillary Refill Less than 3 Seconds Skin: No rashes, No breakdown, - - Multiple areas of ecchymosis including right upper extremity and face. Musculoskeletal: Tenderness - Right hip, - - Right lower extremity brace Neurological: Cranial nerves II-XII grossly intact, Neuro grossly intact Psych/Mental Status: Normal Affect Vital Signs Temp Pulse Resp BP Pulse Ox 97.8 F 85 10 L 234/107 H 100 04/30/19 02:50 04/30/19 10:19 04/30/19 10:19 04/30/19 10:19 04/30/19 10:19 Oxygen Flow Rate (L/min) [3] 5 Oxygen Flow Rate (L/min) [2] 5 Oxygen Flow Rate (L/min) [1 ( 5 Initial Baseline)] Oxygen Flow Rate (L/min) 5 Oxygen Delivery Method [3] Nasal Cannula Oxygen Delivery Method [2] Nasal Cannula Oxygen Delivery Method [1 ( Nasal Cannula Initial Baseline)] Oxygen Delivery Method Room Air Weight: 153 lb 14.122 oz Body Mass Index (BMI) 29.0 Finger Stick Blood Glucose 131 Laboratory Tests Past 24 Hrs 04/30/19 04/30/19 04/30/19 08:50 08:50 09:25 WBC 13.1 H RBC 2.80 L Hgb 8.5 L Hct 26.2 L MCV 93.6 MCH 30.4 MCHC 32.4 RDW Std Deviation 54.9 H RDW Coeff of Jah 16.1 H Plt Count 152 MPV 8.8 Immature Gran % (Auto) 0.600 Neut % (Auto) 82.2 H Lymph % (Auto) 7.3 L [place] % (Auto) 9.6 Eos % (Auto) 0.2 Baso % (Auto) 0.1 Absolute Neuts (auto) 10.8 H Absolute Lymphs (auto) 0.95 Nucleated RBC % 0 Sodium Cancelled 130 L Potassium Cancelled 3.8 Chloride Cancelled 92 L Carbon Dioxide Cancelled 30.0 Anion Gap Cancelled 8 BUN Cancelled 29 H Creatinine Cancelled 5.48 H Estim Creat Clear Calc Cancelled 9.68 Est GFR (MDRD) Af Amer Cancelled 11 L Est GFR (MDRD) Non-Af Cancelled 9 L BUN/Creatinine Ratio Cancelled 5.3 L Glucose Cancelled 65 L Calcium Cancelled 9.0 Assessment/Plan All Active Problems (Last Reviewed 04/18/19 @ 13:39 by Melva Wolfe DO) Dislocation of hip, right, closed (Acute) Accelerated hypertension (Acute) Encephalopathy acute (Ruled-out) Extremity edema (Resolved) Hyperkalemia (Resolved) Hypertensive urgency, malignant (Resolved) 1. Hypertensive urgency-resume home carvedilol, nifedipine regimen. PRN clonidine for SBP greater than 180. Continue to monitor and make adjustments as necessary. 2. Right hip dislocation status post closed right hip reduction in ER-history of right hip replacement with recurrent dislocation. Right lower extremity brace in place. PT/OT. Fall precautions. 3. End-stage renal disease secondary to SLE nephritis-dialysis Wednesday, Wednesday, Wednesday. Consult nephrology. 4. Type 2 diabetes mellitus with neuropathy-does not appear to be on regimen? Accu-Cheks AC at bedtime with sliding scale insulin. 5. GERD-continue famotidine regimen. 6. Hyperlipidemia-continue statin regimen. 7. Depression-continue home duloxetine regimen. 8. AOCD/iron deficiency anemia-at baseline. 9. Chronic debility with recurrent falls at SNF- PT/OT. Fall precautions. DVT prophylaxis-heparin subcu This patient was seen by BEVERLEY Melchor under the supervision of Dr. Phillip. <KenjiDao F - Last Filed: 04/30/19 12:58> History of Present Illness The patient is a 48 year old F [] Past Medical History Medical History: Medical History (Last Reviewed 04/18/19 @ 13:39 by Melva Wolfe DO) Prolonged QT interval (Chronic) R94.31 Chronic diarrhea (Chronic) K52.9 Nonrheumatic mitral (valve) insufficiency (Chronic) I34.0 Secondary pulmonary arterial hypertension (Chronic) I27.21 Non-rheumatic tricuspid valve insufficiency (Chronic) I36.1 End stage renal disease (Chronic) N18.6 on HD Chronic anemia (Chronic) D64.9 Hypertension (Chronic) I10 Narcolepsy (Chronic) G47.419 Lupus nephritis (Chronic) M32.14 Status post kidney and liver biopsy (fatty liver) Degenerative disc disease, cervical (Chronic) M50.30 Cervical spondylosis (Chronic) M47.812 Diabetes mellitus, type II (Chronic) E11.9 SLE (systemic lupus erythematosus) (Chronic) M32.9 Allergies LONG Inhibitors Allergy (Verified 04/30/19 03:31) Angioedema adhesive Allergy (Verified 04/30/19 03:31) Rash lisinopril Allergy (Verified 04/30/19 03:31) Angioedema Sulfa (Sulfonamide Antibiotics) Allergy (Verified 04/30/19 03:31) Rash sulfamethoxazole [From Bactrim] Allergy (Verified 04/30/19 03:31) Rash trimethoprim [From Bactrim] Allergy (Verified 04/30/19 03:31) Rash Angioderm Adverse Reaction (Unknown, Uncoded 04/30/19 03:31) Unknown Surgical History: Surgical History (Last Reviewed 04/30/19 @ 10:58 by BEVERLEY Melchor) Presence of surgically created arteriovenous shunt for hemodialysis (Chronic) Onset Date: ~11/2017 Z99.2 Status post insertion of dialysis catheter (Chronic) Z95.828, Z99.2 History of esophagogastroduodenoscopy (EGD) Z98.890 S/P colonoscopy Z98.890 S/P lymph node biopsy Z98.890 S/P nasal polypectomy Z98.890 Status post carpal tunnel release Z98.890 Status post total hip replacement, bilateral Z96.643 port removed - *Family History Maternal Family History: Family History (Last Reviewed 04/30/19 @ 10:58 by BEVERLEY Melchor) Mother Hypertension Kidney disease ALS (amyotrophic lateral sclerosis) Father Heart disease Hypertension Kidney disease Diabetes Paternal Family History: Family History (Last Reviewed 04/30/19 @ 10:58 by BEVERLEY Melchor) Mother Hypertension Kidney disease ALS (amyotrophic lateral sclerosis) Father Heart disease Hypertension Kidney disease Diabetes Sibling Family History: Family History (Last Reviewed 04/30/19 @ 10:58 by BEVERLEY Melchor) Mother Hypertension Kidney disease ALS (amyotrophic lateral sclerosis) Father Heart disease Hypertension Kidney disease Diabetes - Physical Exam Vital Signs Temp Pulse Resp BP Pulse Ox 98.1 F 87 18 198/113 H 100 04/30/19 10:37 04/30/19 10:37 04/30/19 10:37 04/30/19 10:37 04/30/19 10:37 Oxygen Flow Rate (L/min) [3] 5 Oxygen Flow Rate (L/min) [2] 5 Oxygen Flow Rate (L/min) [1 ( 5 Initial Baseline)] Oxygen Flow Rate (L/min) 5 Oxygen Delivery Method [3] Nasal Cannula Oxygen Delivery Method [2] Nasal Cannula Oxygen Delivery Method [1 ( Nasal Cannula Initial Baseline)] Oxygen Delivery Method Room Air Weight: 153 lb 14.122 oz Body Mass Index (BMI) 29.0 Finger Stick Blood Glucose 131 Laboratory Tests Past 24 Hrs 04/30/19 04/30/19 04/30/19 08:50 08:50 09:25 WBC 13.1 H RBC 2.80 L Hgb 8.5 L Hct 26.2 L MCV 93.6 MCH 30.4 MCHC 32.4 RDW Std Deviation 54.9 H RDW Coeff of Jah 16.1 H Plt Count 152 MPV 8.8 Immature Gran % (Auto) 0.600 Neut % (Auto) 82.2 H Lymph % (Auto) 7.3 L [place] % (Auto) 9.6 Eos % (Auto) 0.2 Baso % (Auto) 0.1 Absolute Neuts (auto) 10.8 H Absolute Lymphs (auto) 0.95 Nucleated RBC % 0 Sodium Cancelled 130 L Potassium Cancelled 3.8 Chloride Cancelled 92 L Carbon Dioxide Cancelled 30.0 Anion Gap Cancelled 8 BUN Cancelled 29 H Creatinine Cancelled 5.48 H Estim Creat Clear Calc Cancelled 9.68 Est GFR (MDRD) Af Amer Cancelled 11 L Est GFR (MDRD) Non-Af Cancelled 9 L BUN/Creatinine Ratio Cancelled 5.3 L Glucose Cancelled 65 L Calcium Cancelled 9.0 POC Glucose 04/30/19 11:55 POC Glucose 75 Code Visit Addendum: Dr. Phillip I personally examined the patient and reviewed the chart. I agree with the above. 88-year-old female currently a resident at a [place] [facility] with end-stage renal disease secondary to lupus nephritis presents with a hip dislocation after fall. X-rays in the ER were negative for any acute fracture and she had a close reduction done by the ER physician. However it was noted that her systolic blood pressure was in the 230s and she was occasionally confused. She was admitted for dialysis tomorrow and control of her blood pressure. She was started on Coreg 25 mg twice daily as well as clonidine 0.2 3 times daily as needed. Also she has a leukocytosis of 13.1 and she states that she is been getting vancomycin with dialysis at the [place]. We will attempt to contact the [facility] for further information and verification of the vancomycin. OBSV E&M: [id number] Initial observation care L3
[2019-04-30 12:01] LABS: Bedside Glucose 75 mg/dL (70-110)
[2019-04-30] MEDS: Acetaminophen 500 MG Tablet 1000 MG PO (12:53)
[2019-04-30] MEDS: Baclofen 10 MG Tablet PO ×2 (14:01→21:21)
--- NOTE | 2019-04-30 16:46 | PCM.CONS.R ---
Consultation - Renal 04/30/19 PCP/ Referring MD: Requesting physician: [] Primary care physician: Luis Daniel Mathis MD Reason for Consultation:: ESRD renal mgmt - History of Present Illness History of Present Illness: The patient is a 48 year old F with ESRD due to diabetes, lupus on dialysis MWF admitted for right hip pain, confusion, hypertensive urgency. She was found to have dislocation of right hip arthroplasty s/p reduction in the ER. She is frequently hospitalized for altered MS on narcotics for pain management. She is rurrently not confused, responsive and appears to be at baseline MS but is a poor historian. Chart reviewed. She shows a bruise on left shoulder but denied falling recently at [facility]. BP is improved now. She is due for dialysis Wednesday. - Allergies Allergies: Allergies LONG Inhibitors Allergy (Verified 04/30/19 03:31) Angioedema adhesive Allergy (Verified 04/30/19 03:31) Rash lisinopril Allergy (Verified 04/30/19 03:31) Angioedema Sulfa (Sulfonamide Antibiotics) Allergy (Verified 04/30/19 03:31) Rash sulfamethoxazole [From Bactrim] Allergy (Verified 04/30/19 03:31) Rash trimethoprim [From Bactrim] Allergy (Verified 04/30/19 03:31) Rash Angioderm Adverse Reaction (Unknown, Uncoded 04/30/19 03:31) Unknown - Current Medications Current Medications: Current Medications Acetaminophen (Tylenol) 1,000 mg PO TID PRN PRN Reason: PAIN Last Admin: 04/30/19 12:53 Dose: 1,000 mg Documented by: Aspirin (Aspirin, Baby) 81 mg PO BIDCM [facility] Atorvastatin Calcium (Lipitor) 20 mg PO QHS [facility] Baclofen (Lioresal) 10 mg PO TID [facility] Last Admin: 04/30/19 14:01 Dose: 10 mg Documented by: Carvedilol (Coreg) 25 mg PO BID [facility] Clonidine (Catapres) 0.2 mg PO TID PRN PRN Reason: HTN Duloxetine HCl (Cymbalta) 60 mg PO DAILY [facility] Famotidine (Pepcid) 20 mg PO BID [facility] Hydroxychloroquine Sulfate (Plaquenil) 200 mg PO BIDCM [facility] Insulin Human Lispro (Humalog Kwikpen (Bkc)) 0 unit SC ACHS [facility]; Protocol Last Admin: 04/30/19 12:20 Dose: Not Given Documented by: Montelukast Sodium (Singulair) 10 mg PO QHS ENRIQUE Nifedipine (Procardia Xl) 90 mg PO DAILY ENRIQUE Prednisone () 5 mg PO DAILY@0800 ENRIQUE Sevelamer Carbonate (Renvela) 1,600 mg PO TIDCM PRN PRN Reason: SNACKS - Past Medical History Past Medical History (Chronic Problems): Chronic Problems (Last Reviewed 04/18/19 @ 13:39 by Melva Wolfe DO) Hip dislocation, right (Chronic) reduced in the ED by Dr. Thao Prolonged QT interval (Chronic) Presence of surgically created arteriovenous shunt for hemodialysis (Chronic ~11/2017) Status post insertion of dialysis catheter (Chronic) Altered mental status (Chronic) due to sedation from Propofol used to reduce the R hip dislocation in the ED Uncontrolled hypertension (Chronic) ESRD (end stage renal disease) on dialysis (Chronic) Chronic diarrhea (Chronic) Nonrheumatic mitral (valve) insufficiency (Chronic) Secondary pulmonary arterial hypertension (Chronic) Non-rheumatic tricuspid valve insufficiency (Chronic) End stage renal disease (Chronic) on HD Chronic anemia (Chronic) Hypertension (Chronic) Narcolepsy (Chronic) Lupus nephritis (Chronic) Status post kidney and liver biopsy (fatty liver) Degenerative disc disease, cervical (Chronic) Cervical spondylosis (Chronic) Diabetes mellitus, type II (Chronic) SLE (systemic lupus erythematosus) (Chronic) - Past Surgical History Surgical History: - - failed AVF left arm, AVF right arm - Social History Smoking Status: Never smoker Alcohol: None Drugs: None - Family History Maternal Family History: Family History (Last Reviewed 04/30/19 @ 10:58 by BEVERLEY Melchor) Mother Hypertension Kidney disease ALS (amyotrophic lateral sclerosis) Father Heart disease Hypertension Kidney disease Diabetes History Items: Diabetes, High Cholesterol, Heart Disease, Hypertension, Renal Disease, - Paternal Family History: Family History (Last Reviewed 04/30/19 @ 10:58 by BEVERLEY Melchor) Mother Hypertension Kidney disease ALS (amyotrophic lateral sclerosis) Father Heart disease Hypertension Kidney disease Diabetes History Items: Diabetes, High Cholesterol, Heart Disease, Hypertension, Renal Disease Sibling Family History: Family History (Last Reviewed 04/30/19 @ 10:58 by BEVERLEY Melchor) Mother Hypertension Kidney disease ALS (amyotrophic lateral sclerosis) Father Heart disease Hypertension Kidney disease Diabetes History Items: Diabetes Review of Systems Constitutional: Reports: Weakness Cardiovascular: Denies: Chest Pain Respiratory: Denies: Cough, Shortness of Breath Gastrointestinal: Denies: Abdominal Pain Musculoskeletal: Reports: - - rt hip pain after fall, dislocation history Skin: Reports: - - ecchymosis Neurological: Reports: Balance problems, - - hx frequent confusion related to narcotics. Denies: Tremor, Seizures Psychiatric: Reports: Anxiety, Depression Patient Problems: Active and Suspected Problems (Last Reviewed 04/18/19 @ 13:39 by Melva Wolfe DO) Dislocation of hip, right, closed (Acute) Accelerated hypertension (Acute) - Physical Exam General: Alert, Cooperative, No apparent distress, - - unreliable historia, asking to call her sister HEENT: DYLAN CUELLAR Oral: Moist Mucosa Lungs: Clear to auscultation Cardiovascular: Regular rate Abdomen: Non Tender, Non-Distended Extremities: No edema Skin: - - ecchymosis left shoulder Musculoskeletal: Muscle Wasting Psych/Mental Status: Anxious, Restless, Alert and oriented to time, place, person, mood and affect Vital Signs Temp Pulse Resp BP Pulse Ox 98.9 F 87 18 164/113 H 98 04/30/19 14:45 04/30/19 16:00 04/30/19 14:45 04/30/19 14:45 04/30/19 14:45 Oxygen Flow Rate (L/min) [3] 5 Oxygen Flow Rate (L/min) [2] 5 Oxygen Flow Rate (L/min) [1 ( 5 Initial Baseline)] Oxygen Flow Rate (L/min) 5 Oxygen Delivery Method [3] Nasal Cannula Oxygen Delivery Method [2] Nasal Cannula Oxygen Delivery Method [1 ( Nasal Cannula Initial Baseline)] Oxygen Delivery Method Room Air Weight: 69.8 kg Body Mass Index (BMI) 29.0 Finger Stick Blood Glucose 131 Laboratory Tests Past 24 Hrs 04/30/19 04/30/19 04/30/19 08:50 08:50 09:25 WBC 13.1 H RBC 2.80 L Hgb 8.5 L Hct 26.2 L MCV 93.6 MCH 30.4 MCHC 32.4 RDW Std Deviation 54.9 H RDW Coeff of Jah 16.1 H Plt Count 152 MPV 8.8 Immature Gran % (Auto) 0.600 Neut % (Auto) 82.2 H Lymph % (Auto) 7.3 L Daniels % (Auto) 9.6 Eos % (Auto) 0.2 Baso % (Auto) 0.1 Absolute Neuts (auto) 10.8 H Absolute Lymphs (auto) 0.95 Nucleated RBC % 0 Sodium Cancelled 130 L Potassium Cancelled 3.8 Chloride Cancelled 92 L Carbon Dioxide Cancelled 30.0 Anion Gap Cancelled 8 BUN Cancelled 29 H Creatinine Cancelled 5.48 H Estim Creat Clear Calc Cancelled 9.68 Est GFR (MDRD) Af Amer Cancelled 11 L Est GFR (MDRD) Non-Af Cancelled 9 L BUN/Creatinine Ratio Cancelled 5.3 L Glucose Cancelled 65 L Calcium Cancelled 9.0 POC Glucose 04/30/19 11:55 POC Glucose 75 Clinical Impression(s) from Imaging Studies Hip X-Ray 04/30/19 03:17 IMPRESSION: There is dislocation of the right hip arthroplasty. Electronically Signed: Dillan Kline at 3:53 EDT Tel , Service support , Hip X-Ray 04/30/19 05:09 IMPRESSION: Reduced dislocation of the hip arthroplasty. There is no evidence of fracture. Electronically Signed: Dillan Kline, at 5:27 EDT Tel , Service support , Brain CT 04/30/19 07:04 IMPRESSION: No CT evidence of acute intracranial hemorrhage. Electronically Signed: Shelia Mathis MD at 8:07 EDT , Service support , Assessment/Plan All Active Problems (Last Reviewed 04/18/19 @ 13:39 by Melva Wolfe DO) Dislocation of hip, right, closed (Acute) Accelerated hypertension (Acute) Encephalopathy acute (Ruled-out) Extremity edema (Resolved) Hyperkalemia (Resolved) Hypertensive urgency, malignant (Resolved) 1. ESRD HD MWF. Dialysis tomorrow 2. Hypertensive urgency BP improving. Resume all home meds 3. Dislocation rt hip arthroplasty 4. Anemia hgb stable 5. DM2 primary service mgmt
[2019-04-30] MEDS: Hydroxychloroquine 200 MG Tablet PO (17:14)
[2019-04-30] MEDS: Aspirin 81 MG TAB.CHEW PO (17:14)
[2019-04-30 17:21] LABS: Bedside Glucose 83 mg/dL (70-110)
[2019-04-30] MEDS: Montelukast 10 MG Tablet PO (21:21)
[2019-04-30] MEDS: Famotidine 20 MG Tablet PO (21:21)
[2019-04-30] MEDS: Atorvastatin Calcium 20 MG Tablet PO (21:22)
[2019-04-30 22:11] LABS: Bedside Glucose 108 mg/dL (70-110)
[2019-05-01] MEDS: Acetaminophen 500 MG Tablet 1000 MG PO (01:40)
[2019-05-01 02:45] VITALS: BP 159/98; PULSE 89; RESP 18; TEMP 37.2; O2SAT 98
[2019-05-01 02:57] VITALS: PULSE 87
[2019-05-01 06:25] LABS: Absolute Lymphocyte Count 0.71 X10^3/uL (0.83-4.51); Absolute Neutrophil Count 14.2 X10^3/uL (2.0-7.7); Basophil# 0.03 X10^3/uL; Basophil% 0.2 % (0-1); Eosinophil# 0.01 X10^3/uL; Eosinophils% 0.1 % (0-5); Hematocrit 23.9 % (37-47); Hemoglobin 7.5 g/dL (12.0-15.0); Lymphocyte # 0.71 X10^3/ul (4.0); Lymphocyte % 4.3 % (19-41); Mean Corp Hgb Conc 31.4 g/dL (32-36); Mean Corpuscular Hgb 30.4 pg (27.0-32.0); Mean Corpuscular Volume 96.8 fL (81-99); Mean Platelet Vol. 9.2 fl (6.2-12.0); Monocyte# 1.59 X10^3/uL; Monocyte% 9.6 % (0-10); NRBC Flagged by Analyzer 0 % (0-5); Neutrophil # 14.16 X10^3/uL (2.7-7.7); Neutrophil % 85.4 % (47-70); POSITIVE DIFFERENTIAL YES; Platelet Count 109 K/mm3 (150-450); RBC Distribution Width CV 16.4 % (11.6-14.6); RBC Distribution Width SD 57.8 fl (35.1-43.9); Red Blood Count 2.47 M/mm3 (4.2-5.4); White Blood Count 16.6 K/mm3 (4.4-11.0)
[2019-05-01 06:35] LABS: Anion Gap 9 (5-15); BUN 42 mg/dL (7-18); BUN/Creat Ratio 6.4 RATIO (10-20); Calcium,Total 8.6 mg/dL (8.5-10.1); Chloride 92 mmol/L (98-107); Creatinine, Serum 6.59 mg/dL (0.55-1.02); EST Glomerular Filtration Rate 7 mL/min (>60); Est Glom Filt Rate - Afr Amer 9 mL/min (>60); Estimated Creatinine Clearance 8.05 ml/min; Glucose 79 mg/dL (74-106); Magnesium 2.5 mg/dL (1.6-2.6); Phosphorus 5.5 mg/dL (2.5-4.9); Potassium 4.8 mmol/L (3.5-5.1); Sodium Level 127 mmol/L (136-145)
[2019-05-01 06:44] LABS: Differential Indicated SCAN CRITERIA MET
[2019-05-01] MEDS: Baclofen 10 MG Tablet PO (06:49)
[2019-05-01 07:10] LABS: Bedside Glucose 75 mg/dL (70-110)
[2019-05-01 07:14] LABS: Differential Comment SCANNED; Target Cells 3+
[2019-05-01 07:15] LABS: Microcytosis 2+
[2019-05-01 07:33] VITALS: PULSE 88
--- NOTE | 2019-05-01 09:07 | PCM.EXTCARCO ---
- Diet 04/30/19 11:14 Diet: Cardiac: Carb-Controlled Is pt able to select menu?: No - Routine Orders/Code Status Enema Type: Fleetz Enema Frequency: Daily PRN Suppository Type: Dulcolax 10mg Suppository Frequency: Daily PRN Routine Lab Work: CBC, BMP, - - In 3 days, then q Week - Suggestions for Active Care Change Position every (hours): 2 Times a day to sit in chair: 3 - Therapies Extremity Affected:: Right Lower - recurrent right hip dislocation Physical Therapy: Eval and Treat Occupational Therapy: Eval and Treat - Problem/Diagnosis (1) Hip dislocation, right Status: Acute Comment: reduced in the ED by Dr. Thao Current Visit: Yes (2) Dislocation of hip, right, closed Status: Acute Current Visit: Yes (3) Accelerated hypertension Status: Acute Current Visit: Yes (4) Prolonged QT interval Status: Chronic Current Visit: No (5) Presence of surgically created arteriovenous shunt for hemodialysis Status: Chronic Current Visit: No (6) Status post insertion of dialysis catheter Status: Chronic Current Visit: No (7) Altered mental status Status: Chronic Comment: due to sedation from Propofol used to reduce the R hip dislocation in the ED Current Visit: No (8) Uncontrolled hypertension Status: Chronic Current Visit: No (9) ESRD (end stage renal disease) on dialysis Status: Chronic Current Visit: No (10) Chronic diarrhea Status: Chronic Current Visit: No (11) Nonrheumatic mitral (valve) insufficiency Status: Chronic Current Visit: No (12) Secondary pulmonary arterial hypertension Status: Chronic Current Visit: No (13) Non-rheumatic tricuspid valve insufficiency Status: Chronic Current Visit: No (14) End stage renal disease Status: Chronic Comment: on HD Current Visit: No (15) Chronic anemia Status: Chronic Current Visit: No (16) Hypertension Status: Chronic Current Visit: No (17) Narcolepsy Status: Chronic Current Visit: No (18) Lupus nephritis Status: Chronic Comment: Status post kidney and liver biopsy (fatty liver) Current Visit: No (19) Degenerative disc disease, cervical Status: Chronic Current Visit: No (20) Cervical spondylosis Status: Chronic Current Visit: No (21) Diabetes mellitus, type II Status: Chronic Current Visit: No (22) SLE (systemic lupus erythematosus) Status: Chronic Current Visit: No - Allergies/Procedures Done in Hospital Allergies/Adverse Reactions: Allergies LONG Inhibitors Allergy (Verified 04/30/19 03:31) Angioedema adhesive Allergy (Verified 04/30/19 03:31) Rash lisinopril Allergy (Verified 04/30/19 03:31) Angioedema Sulfa (Sulfonamide Antibiotics) Allergy (Verified 04/30/19 03:31) Rash sulfamethoxazole [From Bactrim] Allergy (Verified 04/30/19 03:31) Rash trimethoprim [From Bactrim] Allergy (Verified 04/30/19 03:31) Rash Angioderm Adverse Reaction (Unknown, Uncoded 04/30/19 03:31) Unknown Procedures: Dialysis - Type of Care/Length of Stay Estimated LOS: More Than 30 Days Type of Care Needed: Skilled Rehab Potential: Fair Prognosis: Fair - Additional Orders/Day of Discharge H&P will serve as current which was dated: 04/30/19 Day of Discharge: 05/01/19 - Dietary and Speech Recommendations Dietitian Recommendations/Changes: Rec diet change to CHO Control Cardiac / low sodium w/ fluid restriction as indicated. 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
--- NOTE | 2019-05-01 09:21 | DS.PCM_ITS ---
<Cyn Pat - Last Filed: 05/01/19 09:29> Discharge Date and Diagnosis Date of Admission: 04/30/19 Date of Discharge: 05/01/19 - Primary Discharge Diagnosis Active and Suspected Problems (Last Reviewed 04/18/19 @ 13:39 by Melva Wolfe DO) 1. Hypertensive urgency 2. Right hip dislocation status post closed right hip reduction in ER 3. End-stage renal disease secondary to SLE nephritis 4. Type 2 diabetes mellitus with neuropathy 5. GERD 6. Hyperlipidemia 7. Depression 8. AOCD/iron deficiency anemia 9. Chronic debility with recurrent falls at SNF - Secondary Discharge Diagnosis Chronic Problems (Last Reviewed 04/18/19 @ 13:39 by Melva Wolfe DO) Prolonged QT interval (Chronic) Presence of surgically created arteriovenous shunt for hemodialysis (Chronic ~11/2017) Status post insertion of dialysis catheter (Chronic) Altered mental status (Chronic) due to sedation from Propofol used to reduce the R hip dislocation in the ED Uncontrolled hypertension (Chronic) ESRD (end stage renal disease) on dialysis (Chronic) Chronic diarrhea (Chronic) Nonrheumatic mitral (valve) insufficiency (Chronic) Secondary pulmonary arterial hypertension (Chronic) Non-rheumatic tricuspid valve insufficiency (Chronic) End stage renal disease (Chronic) on HD Chronic anemia (Chronic) Hypertension (Chronic) Narcolepsy (Chronic) Lupus nephritis (Chronic) Status post kidney and liver biopsy (fatty liver) Degenerative disc disease, cervical (Chronic) Cervical spondylosis (Chronic) Diabetes mellitus, type II (Chronic) SLE (systemic lupus erythematosus) (Chronic) Hospital Course and Treatment Imaging Results: Diagnostic Data Hip X-Ray 04/30/19 05:09 IMPRESSION: Reduced dislocation of the hip arthroplasty. There is no evidence of fracture. Electronically Signed: Dillan Kline, at 5:27 EDT Tel , Service support , Brain CT 04/30/19 07:04 IMPRESSION: No CT evidence of acute intracranial hemorrhage. Electronically Signed: Shelia Mathis MD at 8:07 EDT , Service support , Dr. Ambriz- Nephrology Operations: None Procedures: Dialysis Summary of Care Provided: The patient is a 48 year old F admitted 04/30/2019 due to right hip pain and elevated blood pressure. 1. Hypertensive urgency-resume home carvedilol, nifedipine regimen. Carvedilol regimen increased to 25 mg twice daily. Continue clonidine 0.2 mg 3 times daily as needed for systolic blood pressure greater than 170 or diastolic blood pressure greater than 100. Patient's blood pressure significantly improved, at baseline. Continue blood pressure monitoring at SNF. 2. Right hip dislocation status post closed right hip reduction in ER-history of right hip replacement with recurrent dislocation. Right lower extremity brace in place. PT/OT. Fall precautions. Return to SNF at discharge. 3. End-stage renal disease secondary to SLE nephritis-dialysis Wednesday, Wednesday, Wednesday. Nephrology consulted, underwent dialysis x1 during admission. 4. Type 2 diabetes mellitus with neuropathy-does not appear to be on regimen? Blood glucose normal during admission. Recommend hemoglobin A1c by primary care provider. 5. GERD-continue famotidine regimen. 6. Hyperlipidemia-continue statin regimen. 7. Depression-continue home duloxetine regimen. 8. AOCD/iron deficiency anemia-at baseline. Mildly reduced from baseline, suspect secondary to hypervolemia predialysis. 9. Chronic debility with recurrent falls at SNF- PT/OT. Fall precautions. General: No apparent distress, - - Intermittently drowsy, A&O x2 HEENT: Atraumatic, PERRLA, EOMI, Normocephalic Neck: Supple, No JVD, Negative Carotid Bruits Lungs: Clear to auscultation, Normal air movement Cardiovascular: Regular rate, Regular Rhythm, Normal S1, Normal S2, No murmurs Abdomen: Bowel Sounds Present, Soft, Non Tender, Non-Distended Extremities: No clubbing, No cyanosis, No edema, Capillary Refill Less than 3 Seconds Skin: No rashes, No breakdown, - - Multiple areas of ecchymosis including right upper extremity and face. Musculoskeletal: Tenderness - Right hip, - - Right lower extremity brace Neurological: Cranial nerves II-XII grossly intact, Neuro grossly intact Psych/Mental Status: Normal Affect Patient seen and examined prior to discharge. Physical assessment as noted above. Patient is stable for discharge with follow up recommendations as noted above. This patient was seen by BEVERLEY Melchor under the supervision of Dr. Phillip. - Physical Exam Vital Signs Temp Pulse Resp BP Pulse Ox 98.9 F 88 18 159/98 H 98 05/01/19 02:45 05/01/19 07:33 05/01/19 02:45 05/01/19 02:45 05/01/19 02:45 Oxygen Flow Rate (L/min) [3] 5 Oxygen Flow Rate (L/min) [2] 5 Oxygen Flow Rate (L/min) [1 ( 5 Initial Baseline)] Oxygen Flow Rate (L/min) 5 Oxygen Delivery Method [3] Nasal Cannula Oxygen Delivery Method [2] Nasal Cannula Oxygen Delivery Method [1 ( Nasal Cannula Initial Baseline)] Oxygen Delivery Method Room Air Weight: 153 lb 14.122 oz Body Mass Index (BMI) 29.0 Finger Stick Blood Glucose 131 Intake and Output for Last 24 Hours 04/29/19 04/30/19 05/01/19 23:59 23:59 23:59 Intake Total 240 / 240 Balance 240 / 240 Laboratory Tests Past 24 Hrs 04/30/19 05/01/19 05/01/19 09:25 06:05 06:05 WBC 16.6 H RBC 2.47 L Hgb 7.5 L Hct 23.9 L MCV 96.8 MCH 30.4 MCHC 31.4 L RDW Std Deviation 57.8 H RDW Coeff of Jah 16.4 H Plt Count 109 L MPV 9.2 Immature Gran % (Auto) 0.400 Neut % (Auto) 85.4 H Lymph % (Auto) 4.3 L [place] % (Auto) 9.6 Eos % (Auto) 0.1 Baso % (Auto) 0.2 Absolute Neuts (auto) 14.2 H Absolute Lymphs (auto) 0.71 L Nucleated RBC % 0 Differential Comment SCANNED Diff Path Review May foll Microcytosis 2+ Target Cells 3+ Sodium 130 L 127 L Potassium 3.8 4.8 Chloride 92 L 92 L Carbon Dioxide 30.0 26.0 Anion Gap 8 9 BUN 29 H 42 H Creatinine 5.48 H 6.59 H Estim Creat Clear Calc 9.68 8.05 Est GFR (MDRD) Af Amer 11 L 9 L Est GFR (MDRD) Non-Af 9 L 7 L BUN/Creatinine Ratio 5.3 L 6.4 L Glucose 65 L 79 Calcium 9.0 8.6 Phosphorus 5.5 H Magnesium 2.5 POC Glucose 05/01/19 04/30/19 04/30/19 06:51 21:20 17:11 POC Glucose 75 108 83 04/30/19 11:55 POC Glucose 75 Home Medications: Medications to take at Discharge Duloxetine Hcl [Cymbalta] 60 mg PO DAILY 10/01/16 Hydroxychloroquine [Plaquenil] 200 mg PO DAILY 10/01/16 Sevelamer Carbonate [Renvela] 1,600 mg PO TID 08/12/18 Prednisone 5 mg PO DAILY 09/09/18 Cevimeline HCl 30 mg PO TID 11/17/18 Clindamycin Phos/Benzoyl Perox [Clinda-Benzoyl Perox 1-5% Pump] 1 applic TP BID 11/17/18 Aspirin 81 mg PO BID 04/18/19 Baclofen 10 mg PO TID 04/18/19 CycloSPORINE Ophthalmic [Restasis Ophthalmic] 1 drp EACH EYE BID 04/18/19 Dextroamphetamine/Amphetamine [Adderall 15 mg Tablet] 1 tab PO DAILY PRN 04/18/19 Docusate Sodium 100 mg PO BID PRN PRN 04/18/19 Ergocalciferol (Vitamin D2) [Vitamin D2] 50 mcg PO QMONTH 04/18/19 Famotidine 40 mg PO BID 04/18/19 Ibuprofen 200 mg PO Q4H PRN PRN 04/18/19 Lidocaine 5 gm TOPICAL BID PRN PRN 04/18/19 Montelukast [Singulair] 1 tab PO QHS 04/18/19 Nifedipine [Nifedipine ER] 90 mg PO DAILY 04/18/19 Ondansetron [Zofran Odt] 4 mg PO Q8H PRN PRN 04/18/19 Acetaminophen [Tylenol] 1,000 mg PO TID PRN 04/30/19 B Complex with Vitamin C [B-Complex Plus Vitamin C] 1 ea PO DAILY 04/30/19 Fluticasone 0.05% [Flonase Nasal Chambers] 2 spray NASAL DAILY 04/30/19 Simvastatin [Zocor] 40 mg PO QHS 04/30/19 Sod Chlor,Bicarb/Squeez Bottle [[place] Saline Nasal Rinse Kit] 2 spray NS DAILY PRN 04/30/19 Carvedilol [Coreg (Beta Cirilo)] 25 mg PO BID tab 05/01/19 Clonidine HCl [Catapres] 0.2 mg PO TID PRN tab 05/01/19 Primary Care Physician: Luis Daniel Mathis MD [Primary Care Provider] - Please follow up with your Primary Care Physician in: 1 Week Please Follow Up With: Primary stroboscope operator When: Dialysis as scheduled [facility]position: [facility] Minutes spent on discharge:: 35 Patient Condition:: Stable Medical Necessity - Tobacco Use Smoking Status: Never smoker Meaningful Use Info Meaningful Use Diagnoses (Choose all that apply): None applicable <Dao Phillip - Last Filed: 05/01/19 09:46> Discharge Date and Diagnosis - Secondary Discharge Diagnosis Chronic Problems (Last Reviewed 04/18/19 @ 13:39 by Melva Wolfe DO) Prolonged QT interval (Chronic) Presence of surgically created arteriovenous shunt for hemodialysis (Chronic ~11/2017) Status post insertion of dialysis catheter (Chronic) Altered mental status (Chronic) due to sedation from Propofol used to reduce the R hip dislocation in the ED Uncontrolled hypertension (Chronic) ESRD (end stage renal disease) on dialysis (Chronic) Chronic diarrhea (Chronic) Nonrheumatic mitral (valve) insufficiency (Chronic) Secondary pulmonary arterial hypertension (Chronic) Non-rheumatic tricuspid valve insufficiency (Chronic) End stage renal disease (Chronic) on HD Chronic anemia (Chronic) Hypertension (Chronic) Narcolepsy (Chronic) Lupus nephritis (Chronic) Status post kidney and liver biopsy (fatty liver) Degenerative disc disease, cervical (Chronic) Cervical spondylosis (Chronic) Diabetes mellitus, type II (Chronic) SLE (systemic lupus erythematosus) (Chronic) Hospital Course and Treatment Summary of Care Provided: The patient is a 48 year old F [] - Physical Exam Vital Signs Temp Pulse Resp BP Pulse Ox 98.0 F 81 16 155/92 H 100 05/01/19 09:37 05/01/19 09:37 05/01/19 09:37 05/01/19 09:37 05/01/19 09:37 Oxygen Flow Rate (L/min) [3] 5 Oxygen Flow Rate (L/min) [2] 5 Oxygen Flow Rate (L/min) [1 ( 5 Initial Baseline)] Oxygen Flow Rate (L/min) 5 Oxygen Delivery Method [3] Nasal Cannula Oxygen Delivery Method [2] Nasal Cannula Oxygen Delivery Method [1 ( Nasal Cannula Initial Baseline)] Oxygen Delivery Method Room Air Weight: 153 lb 14.122 oz Body Mass Index (BMI) 29.0 Finger Stick Blood Glucose 131 Intake and Output for Last 24 Hours 04/29/19 04/30/19 05/01/19 23:59 23:59 23:59 Intake Total 240 / 240 Balance 240 / 240 Laboratory Tests Past 24 Hrs 04/30/19 05/01/19 05/01/19 09:25 06:05 06:05 WBC 16.6 H RBC 2.47 L Hgb 7.5 L Hct 23.9 L MCV 96.8 MCH 30.4 MCHC 31.4 L RDW Std Deviation 57.8 H RDW Coeff of Jah 16.4 H Plt Count 109 L MPV 9.2 Immature Gran % (Auto) 0.400 Neut % (Auto) 85.4 H Lymph % (Auto) 4.3 L [place] % (Auto) 9.6 Eos % (Auto) 0.1 Baso % (Auto) 0.2 Absolute Neuts (auto) 14.2 H Absolute Lymphs (auto) 0.71 L Nucleated RBC % 0 Differential Comment SCANNED Diff Path Review May foll Microcytosis 2+ Target Cells 3+ Sodium 130 L 127 L Potassium 3.8 4.8 Chloride 92 L 92 L Carbon Dioxide 30.0 26.0 Anion Gap 8 9 BUN 29 H 42 H Creatinine 5.48 H 6.59 H Estim Creat Clear Calc 9.68 8.05 Est GFR (MDRD) Af Amer 11 L 9 L Est GFR (MDRD) Non-Af 9 L 7 L BUN/Creatinine Ratio 5.3 L 6.4 L Glucose 65 L 79 Calcium 9.0 8.6 Phosphorus 5.5 H Magnesium 2.5 POC Glucose 05/01/19 04/30/19 04/30/19 06:51 21:20 17:11 POC Glucose 75 108 83 04/30/19 11:55 POC Glucose 75 Code Visit Addendum: Dr. Phillip I personally examined the patient and reviewed the chart. I agree with the above. 48-year-old female currently a resident at a senior care with end-stage renal disease secondary to lupus nephritis presents with a hip dislocation after fall. X-rays in the ER were negative for any acute fracture and she had a close reduction done by the ER physician. However it was noted that her systolic blood pressure was in the 230s and she was occasionally confused, her confusion has resolved. She was admitted for dialysis and control of her blood pressure. She was started on Coreg 25 mg twice daily as well as clonidine 0.2 3 times daily as needed,, her blood pressure control improved with the increase in her Coreg. Also she has a leukocytosis of 13.1 and she states that she is been getting vancomycin with dialysis at the senior care, as well as being on prednisone chronically. She has remained afebrile during her stay. Because her blood pressure is much improved, will discharge to her outpatient dialysis so she can continue with medications as an outpatient at the senior care. OBSV E&M: [id number] Observation care discharge
--- NOTE | 2019-05-01 09:32 | PHA.DC.MR ---
Pharmacy Service has performed discharge medication reconciliation for this patient upon transfer to [facility]. The patient's discharge medication list was reviewed for discrepancies and discrepancies were resolved. Home Medications Duloxetine Hcl [Cymbalta] 60 mg PO DAILY 10/01/16 Hydroxychloroquine [Plaquenil] 200 mg PO DAILY 10/01/16 Sevelamer Carbonate [Renvela] 1,600 mg PO TID 08/12/18 Prednisone 5 mg PO DAILY 09/09/18 Cevimeline HCl 30 mg PO TID 11/17/18 Clindamycin Phos/Benzoyl Perox [Clinda-Benzoyl Perox 1-5% Pump] 1 applic TP BID 11/17/18 Aspirin 81 mg PO BID 04/18/19 Baclofen 10 mg PO TID 04/18/19 CycloSPORINE Ophthalmic [Restasis Ophthalmic] 1 drp EACH EYE BID 04/18/19 Dextroamphetamine/Amphetamine [Adderall 15 mg Tablet] 1 tab PO DAILY PRN 04/18/19 Docusate Sodium 100 mg PO BID PRN PRN 04/18/19 Ergocalciferol (Vitamin D2) [Vitamin D2] 50 mcg PO QMONTH 04/18/19 Famotidine 40 mg PO BID 04/18/19 Ibuprofen 200 mg PO Q4H PRN PRN 04/18/19 Lidocaine 5 gm TOPICAL BID PRN PRN 04/18/19 Montelukast [Singulair] 1 tab PO QHS 04/18/19 Nifedipine [Nifedipine ER] 90 mg PO DAILY 04/18/19 Ondansetron [Zofran Odt] 4 mg PO Q8H PRN PRN 04/18/19 Acetaminophen [Tylenol] 1,000 mg PO TID PRN 04/30/19 B Complex with Vitamin C [B-Complex Plus Vitamin C] 1 ea PO DAILY 04/30/19 Fluticasone 0.05% [Flonase Nasal [place]] 2 spray NASAL DAILY 04/30/19 Simvastatin [Zocor] 40 mg PO QHS 04/30/19 Sod Chlor,Bicarb/Squeez Bottle [[place] Saline Nasal Rinse Kit] 2 spray NS DAILY PRN 04/30/19 Carvedilol [Coreg (Beta Cirilo)] 25 mg PO BID tab 05/01/19 Clonidine HCl [Catapres] 0.2 mg PO TID PRN tab 05/01/19
[2019-05-01 09:37] VITALS: BP 155/92; PULSE 81; RESP 16; TEMP 36.7; O2SAT 100
--- NOTE | 2019-05-01 09:40 | CASEMGMT ---
Patient is ready for discharge back to [facility]. She is a alf resident of [facility]. SW faxed updates to [facility]. Keren GREER PRODUCT PROMOTER SALES PERSON
--- NOTE | 2019-05-01 10:50 | NURSING ---
report called to Shelia ISLAS at [facility]
[2019-05-01 11:06] LABS: Bedside Glucose 76 mg/dL (70-110)
--- NOTE | 2019-05-01 11:41 | CASEMGMT ---
Addendum entered by Keren Ramírez 05/01/19 12:02: SW also called patient's brother Isra and let him know about discharge back to [facility] today at 2p. Keren CALL Original Note: Faxed orders to [facility]. Called [facility] and arranged for patient to get picked up at 2p via cot due to confusion. SW notified RN, rn charge, and left message for Carlene at [facility]. Plan: d/c back to [facility] under intermediate level of care. Keren GREER STEEPING PRESS OPERATOR
[2019-05-01 12:32] LABS: Pathologist Review Reviewed
--- NOTE | 2019-05-01 12:48 | PN.RENAL_ITS ---
Subjective: seen on dialysis. Agitated, restless at start of treatment sedate now - Physical Exam Lungs: Clear to auscultation Cardiovascular: Regular rate Vital Signs Temp Pulse Resp BP Pulse Ox 98.0 F 81 16 155/92 H 100 05/01/19 09:37 05/01/19 09:37 05/01/19 09:37 05/01/19 09:37 05/01/19 09:37 Oxygen Flow Rate (L/min) [3] 5 Oxygen Flow Rate (L/min) [2] 5 Oxygen Flow Rate (L/min) [1 ( 5 Initial Baseline)] Oxygen Flow Rate (L/min) 5 Oxygen Delivery Method [3] Nasal Cannula Oxygen Delivery Method [2] Nasal Cannula Oxygen Delivery Method [1 ( Nasal Cannula Initial Baseline)] Oxygen Delivery Method Room Air Weight: 69.8 kg Body Mass Index (BMI) 29.0 Finger Stick Blood Glucose 131 Intake and Output for Last 24 Hours 04/29/19 04/30/19 05/01/19 23:59 23:59 23:59 Intake Total 360 / 360 Balance 360 / 360 Laboratory Tests Past 24 Hrs 05/01/19 05/01/19 06:05 06:05 WBC 16.6 H RBC 2.47 L Hgb 7.5 L Hct 23.9 L MCV 96.8 MCH 30.4 MCHC 31.4 L RDW Std Deviation 57.8 H RDW Coeff of Jah 16.4 H Plt Count 109 L MPV 9.2 Immature Gran % (Auto) 0.400 Neut % (Auto) 85.4 H Lymph % (Auto) 4.3 L Roberts % (Auto) 9.6 Eos % (Auto) 0.1 Baso % (Auto) 0.2 Absolute Neuts (auto) 14.2 H Absolute Lymphs (auto) 0.71 L Nucleated RBC % 0 Differential Comment SCANNED Diff Path Review Reviewed Microcytosis 2+ Target Cells 3+ Sodium 127 L Potassium 4.8 Chloride 92 L Carbon Dioxide 26.0 Anion Gap 9 BUN 42 H Creatinine 6.59 H Estim Creat Clear Calc 8.05 Est GFR (MDRD) Af Amer 9 L Est GFR (MDRD) Non-Af 7 L BUN/Creatinine Ratio 6.4 L Glucose 79 Calcium 8.6 Phosphorus 5.5 H Magnesium 2.5 POC Glucose 05/01/19 05/01/19 04/30/19 10:54 06:51 21:20 POC Glucose 76 75 108 04/30/19 17:11 POC Glucose 83 Medical Necessity - Tobacco Use Smoking Status: Never smoker Assessment/Plan All Active Problems (Last Reviewed 04/18/19 @ 13:39 by Melva Wolfe DO) Hip dislocation, right (Acute) Dislocation of hip, right, closed (Acute) Accelerated hypertension (Acute) Extremity edema (Resolved) Hyperkalemia (Resolved) Hypertensive urgency, malignant (Resolved) 1. ESRD HD MWF. Dialysis today, attempt 3L fluid removal 2. Hypertensive urgency BP improved 3. Dislocation rt hip arthroplasty 4. Anemia SHAUN on dialysis, hgb 7.5g. continue to monitor as outpt 5. DM2 primary service mgmt
--- NOTE | 2019-05-01 13:28 | CASEMGMT ---
ROSHAN CM Note: Attempted to complete STOVALL form. Pt is unable to sign at this time. Ramón BORRERO RN ACM
== END 2019-05-01 09:19 | disposition skilled nursing facility (03) ==
LOC: ED 09:13 → PCU 09:29
PROVIDERS: Admitting Provider Family Medicine; Emergency Provider Emergency Medicine; Family Provider Family Medicine; PCP Family Medicine; Visit Provider Family Medicine
DX: S73.004A Unspecified dislocation of right hip, initial encounter (principal); T84.020A Dislocation of internal right hip prosthesis, initial encounter; X50.1XXA Overexertion from prolonged static or awkward postures, initial encounter; M47.812 Spondylosis without myelopathy or radiculopathy, cervical region; M50.30 Other cervical disc degeneration, unspecified cervical region; D64.9 Anemia, unspecified; K52.9 Noninfective gastroenteritis and colitis, unspecified; E11.22 Type 2 diabetes mellitus with diabetic chronic kidney disease; N18.6 End stage renal disease; M32.14 Glomerular disease in systemic lupus erythematosus; G47.419 Narcolepsy without cataplexy; I36.1 Nonrheumatic tricuspid (valve) insufficiency; I34.0 Nonrheumatic mitral (valve) insufficiency; Z99.2 Dependence on renal dialysis; M32.9 Systemic lupus erythematosus, unspecified; I12.9 Hypertensive chronic kidney disease with stage 1 through stage 4 chronic kidney disease, or unspecified chronic kidney disease; Z79.899 Other long term (current) drug therapy; Z79.82 Long term (current) use of aspirin; R53.81 Other malaise; I16.0 Hypertensive urgency; I12.0 Hypertensive chronic kidney disease with stage 5 chronic kidney disease or end stage renal disease; I27.21 Secondary pulmonary arterial hypertension; Z88.1 Allergy status to other antibiotic agents; Z88.2 Allergy status to sulfonamides; Z96.641 Presence of right artificial hip joint; Z88.8 Allergy status to other drugs, medicaments and biological substances
CPT/HCPCS: 27266; 36415; 70450; 73502; 80048; 82962; 83735; 84100; 85025; 90937; 96374; 96375; 97802; 99152; 99218; 99285; J7030; A4216; G0257; G0378; Q5106

== ENCOUNTER 2019-05-22 04:42 | Emergency (ER) | payer MEDICARE, MEDICAID, SELFPAY ==
[2019-04-30 10:39] VITALS: BMI 29.0
[2019-05-22 04:43] VITALS: BP 200/96; PULSE 82; RESP 16; TEMP 36.9; O2SAT 99; BMI 26.5
[2019-05-22 04:48] VITALS: TEMP 36.6; BMI 26.5
[2019-05-22 04:51] LABS: Bedside Glucose 83 mg/dL (70-110)
--- NOTE | 2019-05-22 05:12 | ED.DCSUM_ITS ---
- ER Visit Summary Date of Service: 05/22/19 Chief Complaint: Nausea and vomiting History of Present Illness: The patient is a 48 F who presents with nausea and vomiting that became worse tonight. Patient states this became worse after her recent hip replacement surgery. Patient states tonight she is unable to keep anything down including liquids. Patient states she has sharp and throbbing pain in her right hip. Patient denies any fevers or chills. Patient states her pain improves with repositioning and with her pain medication. Patient states that she feels like her blood sugars going low again tonight. EMS checked her blood sugar on scene and it was 117. Upon arrival here her blood sugar was 83. Physical Examination: Vital signs are stable except for a slightly elevated blood pressure of 200/96. Patient is afebrile. Patient is in no acute distress. Oral mucosa is pink and moist. Neck is supple. Trachea is midline. There is no JVD noted. Heart was regular rate and rhythm. Lungs are clear and equal bilaterally. Abdomen is soft. Bowel sounds are normal. There is no tenderness. There is no guarding noted. Skin is warm dry. Cranial nerves II through XII are intact. There are no focal motor or sensory deficits noted. The remaining physical exam is within normal limits. Test Results: CBC shows a hemoglobin of 9.8 and hematocrit 28.4. These are chronic for the patient. Basic metabolic profile shows a sodium of 125 and ch loride of 87 which are slightly worse than previous result. BUN was 34 and creatinine was 4.78 which is chronic. Emergency Department Course and Treatment: Patient was given a dose of labetalol here and half amp of D50. Patient was feeling better on reevaluation. Patient was given a dose of oxycodone and Tylenol. Patient was also given saline nasal spray per her request. Patient's blood sugar improved to 116. Disposition: Discharge home Impression: 1. Hypoglycemia 2. Postoperative pain right hip This note was generated with [employer] dictation software. It may contain incorrect words, spelling, and punctuation that were not noted in review of the chart prior to signing ED Disposition - Plan for ED Patient: Disposition: Home or Assisted Living Diagnosis: Hypoglycemia, Postoperative pain, acute, hip Instructions: Diabetic Insulin Reaction, VOMITING AND DIARRHEA, Nonspecific (Adult) Referrals: Mitchell Bowen Chi, MD [Primary Care Provider] - 3-5 Days
[2019-05-22] MEDS: Dextrose 50%-Water 25 GM/50 ML DISP.SYRIN IV (05:37)
[2019-05-22] MEDS: Ondansetron 4 MG/2 ML Vial IV (05:37)
[2019-05-22 05:50] LABS: Absolute Neutrophil Count 7.2 X10^3/uL (2.0-7.7); Basophil# 0.02 X10^3/uL; Basophil% 0.2 % (0-1); Hematocrit 28.4 % (37-47); Hemoglobin 9.8 g/dL (12.0-15.0); Lymphocyte % 14.1 % (19-41); Mean Corp Hgb Conc 34.5 g/dL (32-36); Mean Corpuscular Hgb 30.2 pg (27.0-32.0); Mean Corpuscular Volume 87.7 fL (81-99); Mean Platelet Vol. 8.7 fl (6.2-12.0); Monocyte# 1.26 X10^3/uL; Monocyte% 12.7 % (0-10); NRBC Flagged by Analyzer 0 % (0-5); Neutrophil % 72.4 % (47-70); POSITIVE MORPHOLOGY YES; Platelet Count 206 K/mm3 (150-450); RBC Distribution Width CV 14.2 % (11.6-14.6); Red Blood Count 3.24 M/mm3 (4.2-5.4); White Blood Count 9.9 K/mm3 (4.4-11.0)
[2019-05-22 05:53] LABS: Differential Indicated SCAN CRITERIA MET
[2019-05-22 06:00] LABS: Anion Gap 10 (5-15); BUN 34 mg/dL (7-18); BUN/Creat Ratio 7.1 RATIO (10-20); Calcium,Total 8.5 mg/dL (8.5-10.1); Chloride 87 mmol/L (98-107); Creatinine, Serum 4.78 mg/dL (0.55-1.02); EST Glomerular Filtration Rate 10 mL/min (>60); Est Glom Filt Rate - Afr Amer 13 mL/min (>60); Glucose 79 mg/dL (74-106); Sodium Level 125 mmol/L (136-145)
[2019-05-22 06:10] LABS: Differential Comment SCANNED
[2019-05-22 06:23] VITALS: BP 197/107
[2019-05-22 06:26] LABS: Bedside Glucose 116 mg/dL (70-110)
[2019-05-22] MEDS: oxyCODONE 5 MG Tablet PO (07:12)
[2019-05-22] MEDS: Acetaminophen 325 MG Tablet PO (07:13)
--- NOTE | 2019-05-22 07:24 | ED.RN ---
REPORT CALLED TO JULIENNE YAN.
[2019-05-22] MEDS: Sodium Chloride 0.65% 1 SPRAY SPRAY.BTL 2 SPRAY NASAL (07:49)
[2019-05-22 13:16] LABS: Vancomycin, Random Level 15.2 ug/mL (0.0-15.0)
== END 2019-05-22 07:52 | disposition home or self-care (01) ==
PROVIDERS: Emergency Provider Emergency Medicine; Family Provider Family Medicine; PCP Family Medicine Geriatric Medicine
DX: E16.2 Hypoglycemia, unspecified (principal); G89.18 Other acute postprocedural pain; M25.551 Pain in right hip
CPT/HCPCS: 80048; 80202; 82962; 85025; 99285; A4216; J2405

== ENCOUNTER 2019-06-02 20:45 | Inpatient (IN) | payer MEDICARE, MEDICAID, SELFPAY ==
[2019-06-02 20:53] VITALS: BP 158/85; PULSE 82; RESP 16; TEMP 36.9; O2SAT 96; BMI 25.2
[2019-06-02] MEDS: Morphine 4 MG/ML Syringe IV (21:46)
[2019-06-02] MEDS: Ondansetron 4 MG/2 ML Vial IV (21:46)
[2019-06-02 21:48] VITALS: BP 151/93; PULSE 81; RESP 16; O2SAT 100
[2019-06-02 21:55] LABS: Mucous, Urine 0 SEEN /hpf (<or=2+)
[2019-06-02 22:00] LABS: Color, Urine Yellow (Yellow); Glucose, Dipstick Normal (Normal); Ketone-Dipstick Negative (Negative); Leukocyte Esterase-Dipstick 500 /ul (Negative); Nitrite-Dipstick Negative (Negative); Occult Blood-Urine 150 /ul (Negative); Protein-Dipstick 100 mg/dl (Negative); Urine Bilirubin Dipstick Negative (Negative); Urine Clarity Cloudy (Clear); Urine Urobilinogen Normal (Normal)
--- NOTE | 2019-06-02 22:00 | RAD_ITS ---
HISTORY: Right hip pain. Recent replacement and dislocation. Exam is an AP pelvis, and AP of the right hip, and a frog-leg lateral of the right hip. Comparison study is 2 views of the right hip from April 30, 2019 Findings: The patient has had a new right hip placed since April 30, 2019 with a screwed in acetabular component. The bony alignment of that new component is normal. No acute fracture is perceived. The left hip appears in position. RAD/HIP, UNI W/ Pelvis 2-3 Views IMPRESSION: New right acetabular component right total hip prosthesis the acetabular component now screwed in place. No evidence of malalignment, fracture, or loosening. at 2236 Reported and signed by: Adair Evangelista MD Electronically Signed: Adair Evangelista MD at 22:34 EDT Tel , Service support ,
[2019-06-02 22:03] LABS: Absolute Lymphocyte Count 0.96 X10^3/uL (0.83-4.51); Absolute Neutrophil Count 8.6 X10^3/uL (2.0-7.7); Basophil# 0.02 X10^3/uL; Basophil% 0.2 % (0-1); Hematocrit 30.4 % (37-47); Hemoglobin 9.9 g/dL (12.0-15.0); Lymphocyte # 0.96 X10^3/ul (4.0); Lymphocyte % 9.4 % (19-41); Mean Corp Hgb Conc 32.6 g/dL (32-36); Mean Corpuscular Hgb 29.9 pg (27.0-32.0); Mean Corpuscular Volume 91.8 fL (81-99); Mean Platelet Vol. 8.8 fl (6.2-12.0); Monocyte# 0.65 X10^3/uL; Monocyte% 6.3 % (0-10); NRBC Flagged by Analyzer 0 % (0-5); Neutrophil # 8.57 X10^3/uL (2.7-7.7); Neutrophil % 83.6 % (47-70); Platelet Count 239 K/mm3 (150-450); RBC Distribution Width CV 15.6 % (11.6-14.6); RBC Distribution Width SD 51.3 fl (35.1-43.9); Red Blood Count 3.31 M/mm3 (4.2-5.4); White Blood Count 10.3 K/mm3 (4.4-11.0)
[2019-06-02 22:07] LABS: Bacteria 1+ /hpf (None Seen); Red Blood Cells-Urine 10-25 SEEN /hpf (0-5); Squamous Epithelial Cells - UA 0-5 SEEN /hpf (5-10); White Blood Cells >100 SEEN /hpf (0-5)
[2019-06-02 22:08] LABS: Amorphous Sediment 1+ PHOS
[2019-06-02 22:12] LABS: Erythrocyte Sedimentation Rate 27 mm/hr (0-20)
[2019-06-02 22:24] LABS: Anion Gap 7 (5-15); BUN 14 mg/dL (7-18); BUN/Creat Ratio 5.3 RATIO (10-20); Calcium,Total 8.1 mg/dL (8.5-10.1); Chloride 98 mmol/L (98-107); Creatinine, Serum 2.62 mg/dL (0.55-1.02); EST Glomerular Filtration Rate 21 mL/min (>60); Est Glom Filt Rate - Afr Amer 25 mL/min (>60); Estimated Creatinine Clearance 23.17 ml/min; Glucose 128 mg/dL (74-106); Potassium 3.5 mmol/L (3.5-5.1); Sodium Level 139 mmol/L (136-145)
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
[2019-06-02] MEDS: oxyCODONE 5 MG Tablet PO (22:59)
[2019-06-03] VITALS (8 sets, daily range): BP systolic 130–197; BP diastolic 67–96; PULSE 80–83; RESP 16–18; TEMP 36.7–37.1; O2SAT 94–100; BMI 25.2
--- NOTE | 2019-06-03 00:37 | PCM.HP.STD ---
Problem List (1) Intractable pain Status: Acute (2) Hip dislocation, right Status: Inactive Qualifiers: Encounter type: initial encounter Qualified Code(s): S73.004A - Unspecified dislocation of right hip, initial encounter Comment: reduced in the ED by Dr. Thao (3) Dislocation of hip, right, closed Status: Inactive History of Present Illness Date of Admission: 06/03/19 Chief Complaint: RIGHT HIP PAIN The patient is a 48 year old F with a significant history of narcolepsy; SLE; end-stage renal disease; MRSA and C. difficile infection; previous episodes of encephalopathy who presented to the emergency department with progressively worsening sharp right hip pain that started on the day of presentation. Patient has had her bilateral hip replaced. With regard to her right hip; after it was replaced it became infected and it was revised. Patient was sent to [facility] for rehab after her right hip surgery. She has continued to have pain in her right hip and she has discussed this with her orthopedic surgery who think that the patient will continue to have pain at her right hip. Further, patient reports increased frequency of urination and painful urination. Of note patient is on dialysis but still makes some urine. Also patient feels that she is receiving poor care at the residential where she is and she is unhappy about that. At the emergency department she was found to have abnormal urinalysis Past Medical History Past Medical History (Chronic Problems): Chronic Problems (Last Reviewed 06/03/19 @ 04:14 by Garcia Mead MD) Prolonged QT interval (Chronic) Presence of surgically created arteriovenous shunt for hemodialysis (Chronic ~11/2017) Status post insertion of dialysis catheter (Chronic) Altered mental status (Chronic) due to sedation from Propofol used to reduce the R hip dislocation in the ED Uncontrolled hypertension (Chronic) ESRD (end stage renal disease) on dialysis (Chronic) Chronic diarrhea (Chronic) Nonrheumatic mitral (valve) insufficiency (Chronic) Secondary pulmonary arterial hypertension (Chronic) Non-rheumatic tricuspid valve insufficiency (Chronic) End stage renal disease (Chronic) on HD Chronic anemia (Chronic) Hypertension (Chronic) Narcolepsy (Chronic) Lupus nephritis (Chronic) Status post kidney and liver biopsy (fatty liver) Degenerative disc disease, cervical (Chronic) Cervical spondylosis (Chronic) Diabetes mellitus, type II (Chronic) SLE (systemic lupus erythematosus) (Chronic) Medical History: Medical History (Last Reviewed 06/03/19 @ 04:14 by Garcia Mead MD) Prolonged QT interval (Chronic) R94.31 Chronic diarrhea (Chronic) K52.9 Nonrheumatic mitral (valve) insufficiency (Chronic) I34.0 Secondary pulmonary arterial hypertension (Chronic) I27.21 Non-rheumatic tricuspid valve insufficiency (Chronic) I36.1 End stage renal disease (Chronic) N18.6 on HD Chronic anemia (Chronic) D64.9 Hypertension (Chronic) I10 Narcolepsy (Chronic) G47.419 Lupus nephritis (Chronic) M32.14 Status post kidney and liver biopsy (fatty liver) Degenerative disc disease, cervical (Chronic) M50.30 Cervical spondylosis (Chronic) M47.812 Diabetes mellitus, type II (Chronic) E11.9 SLE (systemic lupus erythematosus) (Chronic) M32.9 Allergies LONG Inhibitors Allergy (Verified 06/02/19 20:56) Angioedema adhesive Allergy (Verified 06/02/19 20:56) Rash lisinopril Allergy (Verified 06/02/19 20:56) Angioedema Sulfa (Sulfonamide Antibiotics) Allergy (Verified 06/02/19 20:56) Rash sulfamethoxazole [From Bactrim] Allergy (Verified 06/02/19 20:56) Rash trimethoprim [From Bactrim] Allergy (Verified 06/02/19 20:56) Rash Angioderm Adverse Reaction (Unknown, Uncoded 06/02/19 20:56) Unknown Home Medications: Ambulatory Orders Medication Instructions Recorded Duloxetine Hcl [Cymbalta] 120 mg PO DAILY 10/01/16 Hydroxychloroquine [Plaquenil] 200 mg PO BID 10/01/16 Sevelamer Carbonate [Renvela] 1,600 mg PO TID 08/12/18 Prednisone 5 mg PO DAILY 09/09/18 Cevimeline HCl 30 mg PO TID 11/17/18 CycloSPORINE Ophthalmic [Restasis 1 drp EACH EYE BID 04/18/19 Ophthalmic] Dextroamphetamine/Amphetamine 1 tab PO DAILY PRN 04/18/19 [Adderall 15 mg Tablet] Docusate Sodium 100 mg PO BID PRN PRN 04/18/19 Ergocalciferol (Vitamin D2) 50 mcg PO QMONTH 04/18/19 [Vitamin D2] Famotidine 40 mg PO BID 04/18/19 Lidocaine 5 gm TOPICAL BID PRN PRN 04/18/19 Montelukast [Singulair] 1 tab PO QHS 04/18/19 Nifedipine [Nifedipine ER] 90 mg PO DAILY 04/18/19 Ondansetron [Zofran Odt] 4 mg PO Q8H PRN PRN 04/18/19 Acetaminophen [Tylenol] 1,000 mg PO TID PRN 04/30/19 Fluticasone 0.05% [Flonase Nasal 2 spray NASAL BID 04/30/19 [place]] Atorvastatin Calcium [Lipitor] 20 mg PO QHS 06/02/19 Clonazepam [Klonopin] 1 mg PO BID 06/02/19 Clonidine HCl [Catapres] 0.2 mg PO TID PRN 06/02/19 Darbepoetin Ganesh in Polysorbat 40 mcg IJ TU 06/02/19 [Aranesp] Folic Acid/Vitamin B Comp W-C 1 cap PO DAILY 06/02/19 [Nephrocaps, Renaphro] Heparin Sodium,Porcine [Heparin 5,000 unit IJ TID 06/02/19 Sodium] Lactobacillus Acidophilus 1 ea PO DAILY 06/02/19 [Acidophilus] Melatonin 5 mg PO QHS 06/02/19 Metoclopramide HCl [Reglan] 5 mg PO TID 06/02/19 Nut.tx.impaired Renal Fxn,Soy 237 ml PO BID 06/02/19 [Novasource Renal 2 Will] Oxycodone HCl 5 mg PO TID PRN 06/02/19 Sennosides [Senna] 8.6 mg PO BID 06/02/19 Vancomycin IV [Vancomycin] 500 mg IV MOWEFR 06/02/19 Carvedilol [Coreg (Beta Cirilo)] 25 mg PO BID 06/03/19 Surgical History: Surgical History (Last Reviewed 06/03/19 @ 04:14 by Garcia Mead MD) Presence of surgically created arteriovenous shunt for hemodialysis (Chronic) Onset Date: ~11/2017 Z99.2 Status post insertion of dialysis catheter (Chronic) Z95.828, Z99.2 History of esophagogastroduodenoscopy (EGD) Z98.890 S/P colonoscopy Z98.890 S/P lymph node biopsy Z98.890 S/P nasal polypectomy Z98.890 Status post carpal tunnel release Z98.890 Status post total hip replacement, bilateral Z96.643 port removed Surgical History: - - failed AVF left arm, AVF right arm Psychiatric History: Depression [employer]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 [employer]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 Lives: Longterm Smoking Status: Never smoker Alcohol: None - *Family History Maternal Family History: Family History (Last Reviewed 06/03/19 @ 04:14 by Garcia Mead MD) Mother Hypertension Kidney disease ALS (amyotrophic lateral sclerosis) Father Heart disease Hypertension Kidney disease Diabetes History Items: Diabetes, High Cholesterol, Heart Disease, Hypertension, Renal Disease, - Paternal Family History: Family History (Last Reviewed 06/03/19 @ 04:14 by Garcia Mead MD) Mother Hypertension Kidney disease ALS (amyotrophic lateral sclerosis) Father Heart disease Hypertension Kidney disease Diabetes History Items: Diabetes, High Cholesterol, Heart Disease, Hypertension, Renal Disease Sibling Family History: Family History (Last Reviewed 06/03/19 @ 04:14 by Garcia Mead MD) Mother Hypertension Kidney disease ALS (amyotrophic lateral sclerosis) Father Heart disease Hypertension Kidney disease Diabetes History Items: Diabetes Review of Systems Constitutional: Denies: Chills, Fever, Weight Change HEENT: Denies: Head Aches, Sinus Congestion, Sinus Drainage Cardiovascular: Denies: Chest Pain, Palpitations Respiratory: Denies: Cough, Shortness of breath at rest, Sputum production Gastrointestinal: Denies: Abdominal Pain, Nausea, Vomiting Genitourinary: Reports: Dysuria, Frequency Musculoskeletal: Reports: Joint Pain, Joint Tenderness Skin: Reports: Skin Changes - Redness at coccyx. Denies: Rash, Wounds Neurological: Denies: Numbness, Tingling, Focal weakness Psychiatric: Denies: Anxiety, Depression, Homicidal Ideations, Suicidal Ideations Hematologic/ Lymphatic: Denies: Easy Bruising, Easy Bleeding VTE Information - Inpt Only VTE Present on Admission: No VTE Mechan Device Prophylaxis: None VTE Pharm Prophylaxis ordered?: Yes Patient Problems: Active and Suspected Problems (Last Reviewed 06/03/19 @ 04:14 by Garcia Mead MD) Hip pain (Acute) UTI (urinary tract infection) (Acute) Intractable pain (Acute) - Physical Exam General: Alert, Oriented x3, Cooperative HEENT: Atraumatic, PERRLA, EOMI, Normocephalic Neck: Supple, No JVD, Negative Carotid Bruits Lungs: Clear to auscultation, Normal air movement Cardiovascular: Regular rate, No murmurs Abdomen: Bowel Sounds Present, Soft, Non Tender Extremities: No edema, Capillary Refill Less than 3 Seconds, Tenderness - Right hip Skin: - - Redness at coccyx. Hip incision lateral right hip. Musculoskeletal: No Tenderness to Palpation of Joints or Extremities Neurological: Cranial nerves II-XII grossly intact Psych/Mental Status: Normal Affect, Appropriate Vital Signs Temp Pulse Resp BP Pulse Ox 98.4 F 81 16 151/93 H 100 06/02/19 20:53 06/02/19 21:48 06/02/19 21:48 06/02/19 21:48 06/02/19 21:48 Oxygen Delivery Method Room Air Weight: 66.587 kg Body Mass Index (BMI) 25.2 Finger Stick Blood Glucose 116 Laboratory Tests Past 24 Hrs 06/02/19 06/02/19 06/02/19 21:30 21:45 21:45 WBC 10.3 RBC 3.31 L Hgb 9.9 L Hct 30.4 L MCV 91.8 MCH 29.9 MCHC 32.6 RDW Std Deviation 51.3 H RDW Coeff of Jah 15.6 H Plt Count 239 MPV 8.8 Immature Gran % (Auto) 0.500 Neut % (Auto) 83.6 H Lymph % (Auto) 9.4 L [place] % (Auto) 6.3 Eos % (Auto) 0.0 Baso % (Auto) 0.2 Absolute Neuts (auto) 8.6 H Absolute Lymphs (auto) 0.96 Nucleated RBC % 0 ESR 27 H Sodium 139 Potassium 3.5 Chloride 98 Carbon Dioxide 34.0 H Anion Gap 7 BUN 14 Creatinine 2.62 H Estim Creat Clear Calc 23.17 Est GFR (MDRD) Af Amer 25 L Est GFR (MDRD) Non-Af 21 L BUN/Creatinine Ratio 5.3 L Glucose 128 H Calcium 8.1 L C-React Prot Ext Range 20.90 H Urine Color Yellow Urine Clarity Cloudy Urine pH 8.0 Ur Specific [place] 1.010 Urine Protein 100 H Urine Glucose (UA) Normal Urine Ketones Negative Urine Occult Blood 150 H Urine Nitrite Negative Urine Bilirubin Negative Urine Urobilinogen Normal Ur Leukocyte Esterase 500 H Urine RBC 10-25 SEEN Urine WBC >100 SEEN Ur Squamous Epith Cells 0-5 SEEN Amorphous Sediment 1+ PHOS Urine Bacteria 1+ Urine Mucus 0 SEEN Assessment/Plan All Active Problems (Last Reviewed 06/03/19 @ 04:14 by Garcia Mead MD) Hip pain (Acute) UTI (urinary tract infection) (Acute) Intractable pain (Acute) Accelerated hypertension (Acute) Extremity edema (Resolved) Hyperkalemia (Resolved) Hypertensive urgency, malignant (Resolved) The patient is a 48 year old F with a significant history of narcolepsy; post; end-stage renal disease; MRSA and C. difficile infection; previous episodes of encephalopathy who presented to the emergency department with progressively worsening sharp right hip pain; increased frequency of urination and painful urination and a feeling that she is receiving poor care at the residential that she is at presently. Intractable right hip pain Home meds include oxycodone 5 mg p.o. 3 times daily as needed; will increase to oxycodone 5 mg every 6 hours as needed. Zofran as needed for nausea and vomiting; continue home bowel protocol. Patient to work with PT and OT Patient to follow-up outpatient with orthopedic surgery. Acute UTI Patient with abnormal urinalysis and symptoms of UTI Received ceftriaxone in emergency department. Ceftriaxone continued. Debility Patient is unable to take care of herself and currently at the residential. Patient complains of poor care at the residential and wants some place else to go. plaster and stucco worker consult. End-stage renal disease on dialysis Nephrology consult Renal diet Continue home nephrology medications. Hypertension Urgency On presentation her blood pressure was not within goal Scheduled carvedilol and nifedipine continued. PRN clonidine ordered SLE Plaquenil and prednisone continued Depression and anxiety Cymbalta continued History of Septic hip Patient was at our emergency department on 03/28/[address] [facility]. Continue vancomycin on dialysis days CRP is 20.9 which has markedly improved from high CRP on 03/28/2019. On 03/28/2019 her CRP was 132. Stage II pressure ulcer Calmoseptine ordered DVT prophylaxis Subcutaneous Lovenox Code Visit OBSV E&M: [id number] Initial observation care L3
[2019-06-03] MEDS: Ceftriaxone 1 GM/50 ML BAG IV ×2 (00:49→21:27)
[2019-06-03] MEDS: HYDROmorphone 1 MG/ML Syringe IV (00:49)
[2019-06-03] MEDS: oxyCODONE 5 MG Tablet PO ×3 (05:20→22:12)
[2019-06-03] MEDS: Acetaminophen 500 MG Tablet 1000 MG PO ×2 (05:20→20:50)
[2019-06-03] MEDS: Heparin Injection (Vial) 5,000 UNIT/ML VIAL 5000 UNIT SC ×3 (05:26→21:04)
[2019-06-03] MEDS: 0.9% NaCl Peripheral Flush Adult/Peds IV ×2 (05:26→21:13)
[2019-06-03] MEDS: Ondansetron 4 MG/2 ML Vial IV ×2 (05:26→21:15)
[2019-06-03] MEDS: cloNIDine HCl 0.2 MG Tablet PO (05:58)
[2019-06-03] MEDS: Metoclopramide 5 MG TABLET PO ×3 (07:02→16:57)
[2019-06-03 07:05] LABS: Bedside Glucose 77 mg/dL (70-110)
--- NOTE | 2019-06-03 07:24 | PCM.PN.BLA ---
Progress Note 48 y/o female with PMHx of ESRD on HD, s/p recent bilateral hip replacement, admitted with progressive right hip pain. Imaging has showed stable right hip pain. Patient also current complaint of urinary symptoms, being managed as acute UTI She was seen and examined. Complains of severe nausea with episodes of vomiting in a group home. She reportedly had ultrasound of the gallbladder done that showed gallstones. She had an appointment with Dr. Valverde; discussed with Dr. Sherwood who was following; no gallstones on report, will follow-up in the outpatient with Dr Valverde. Will continue with IV antibiotics Patient is interested in transferring out of her current NH. construction services technician consulted Physical exam is significant for healed right hip scar, tenderness over right hips, Right lower extremity swelling, swollen more than left will order doppler ultrasound to rule out DVT
[2019-06-03] MEDS: Famotidine 20 MG Tablet 40 MG PO ×2 (09:30→22:08)
[2019-06-03] MEDS: CEVIMELINE HCL 30 MG CAPSULE PO ×3 (09:30→21:02)
[2019-06-03] MEDS: predniSONE 5 MG Tablet PO (09:30)
[2019-06-03] MEDS: Carvedilol 25 MG Tablet PO ×2 (09:30→22:08)
[2019-06-03] MEDS: SEVELAMER CARBONATE 800 MG TABLET 1600 MG PO ×3 (09:30→16:57)
[2019-06-03] MEDS: DULoxetine Hcl 60 MG Capsule 120 MG PO (09:31)
[2019-06-03] MEDS: Hydroxychloroquine 200 MG Tablet PO ×2 (09:31→16:57)
[2019-06-03] MEDS: Folic Acid/Vitamin B Comp W-C 1 Capsule 1 CAP PO (09:31)
[2019-06-03] MEDS: NIFEdipine 90 MG Tablet PO (09:32)
[2019-06-03] MEDS: Fluticasone 0.05% 1 SPRAY NASAL.SRY 2 SPRAY NASAL ×2 (09:32→21:04)
[2019-06-03] MEDS: Senna Tablet 1 TABLET PO (09:33)
[2019-06-03] MEDS: Menthol/Lanolin/Calamine/Znox 113 GM Tube 1 APPLIC TOPICAL ×2 (09:33→21:03)
--- NOTE | 2019-06-03 09:33 | VDLE_ITS ---
Reason For Study: Swelling RIGHT LEFT GSV is normal. CFV is compressible, spontaneous, competent, CFV is compressible, spontaneous, competent and demonstrates pulsatile venous flow. and demonstrates pulsatile venous flow. FV is compressible, spontaneous, competent and demonstrates pulsatile venous flow. POP V is compressible, spontaneous, competent and demonstrates pulsatile venous flow. T/P Trunk is compressible. PTV is compressible. RT PerV is compressible. Procedure Exam performed portable in patient room. A preliminary report was called and/or faxed to [facility] Nurse. Interpretation Summary There is no evidence of right lower extremity deep vein thrombosis. Right great saphenous vein appears patent and compressible segmentally. Patent and compressible left common femoral vein Edema noted subcutaneous right lower extremity Ordering Physician: Edwige West Referring Physician: Mitchell Bowen Chi Performed By: Agata Hughes RVT
[2019-06-03] MEDS: clonazePAM 1 MG Tablet PO ×2 (09:36→21:08)
--- NOTE | 2019-06-03 10:38 | PCM.PN.BLA ---
Progress Note Pt well known to me with ESRD due to diabetes, hx hypertension, lupus admitted for rt hip pain. She received her dialysis treatment Wednesday at [facility]. Next dialysis on Wednesday. Hx altered mental status with narcotics, cautious use of narcotics.
[2019-06-03 13:11] LABS: AST(SGOT) 27 U/L (15-37); Alanine Aminotransfer ALT/SGPT 8 U/L (13-56); Albumin, Serum 2.5 g/dL (3.2-5.0); Alkaline Phosphatase 134 U/L (45-117); Bilirubin, Direct 0.14 mg/dL (0.00-0.30); Protein, Total 6.5 g/dL (6.4-8.2)
[2019-06-03] MEDS: Nepro Liquid 120 ML LIQUID PO (13:57)
--- NOTE | 2019-06-03 14:20 | CASEMGMT ---
Social Work Referral: SNF placement Informant: senior center manager Met with patient in room. Introduced self as well as social worker assistant role. Patient agreeable to meet with this social worker assistant. Patient stating to have been at [facility] for the past week and does not want to return. Patient stating to was to transition to [facility]. Patient stating to currently be receiving dialysis and that [place] [facility] is providing transportation. Patient stating that prior to being at [facility] patient was at [facility] for 3 weeks at which patient was sent to the hospital for medical needs and was unable to return to [facility] due to dialysis need per patient. Patient stating that prior to SNF stays that patient was semi-independent. Patient lived with patient mother. Patient goal is to return to the community was patient is able to get my strength back. Patient educated that social work will continue to follow as needed. Loli CALL, [place]
[2019-06-03 16:30] LABS: Bedside Glucose 128 mg/dL (70-110)
[2019-06-03 20:01] LABS: Bedside Glucose 132 mg/dL (70-110)
[2019-06-03] MEDS: Montelukast 10 MG Tablet PO (22:08)
[2019-06-03] MEDS: MELATONIN 10 MG TABLET 5 MG PO (22:08)
[2019-06-03] MEDS: Atorvastatin Calcium 20 MG Tablet PO (22:08)
[2019-06-04] VITALS (8 sets, daily range): BP systolic 144–191; BP diastolic 80–110; PULSE 76–81; RESP 16–18; TEMP 36.5–36.9; O2SAT 95–100
[2019-06-04] MEDS: Sodium Chloride 0.65% 1 SPRAY SPRAY.BTL 2 SPRAY NASAL (03:19)
[2019-06-04] MEDS: cloNIDine HCl 0.2 MG Tablet PO ×2 (03:28→10:01)
[2019-06-04] MEDS: BENZOCAINE/MENTHOL 1 LOZENGE MUCOUS MEM ×2 (04:10→20:58)
[2019-06-04] MEDS: Metoclopramide 5 MG TABLET PO ×3 (06:13→16:41)
[2019-06-04] MEDS: Heparin Injection (Vial) 5,000 UNIT/ML VIAL 5000 UNIT SC ×3 (06:13→21:00)
[2019-06-04] MEDS: predniSONE 5 MG Tablet PO (07:40)
[2019-06-04] MEDS: Hydroxychloroquine 200 MG Tablet PO ×2 (07:40→16:41)
[2019-06-04] MEDS: SEVELAMER CARBONATE 800 MG TABLET 1600 MG PO ×3 (07:41→16:41)
[2019-06-04] MEDS: oxyCODONE 5 MG Tablet PO (07:41)
[2019-06-04] MEDS: NIFEdipine 90 MG Tablet PO (07:43)
[2019-06-04] MEDS: CEVIMELINE HCL 30 MG CAPSULE PO ×3 (07:43→21:00)
[2019-06-04] MEDS: Carvedilol 25 MG Tablet PO ×2 (07:43→21:00)
[2019-06-04] MEDS: Ondansetron 4 MG/2 ML Vial IV (07:59)
[2019-06-04] MEDS: 0.9% NaCl Peripheral Flush Adult/Peds IV ×3 (07:59→20:58)
[2019-06-04] MEDS: Folic Acid/Vitamin B Comp W-C 1 Capsule 1 CAP PO (10:00)
[2019-06-04] MEDS: clonazePAM 1 MG Tablet PO ×2 (10:00→21:01)
[2019-06-04] MEDS: Nepro Liquid 120 ML LIQUID PO (10:00)
[2019-06-04] MEDS: Senna Tablet 1 TABLET PO ×2 (10:00→21:02)
[2019-06-04] MEDS: DULoxetine Hcl 60 MG Capsule 120 MG PO (10:00)
[2019-06-04] MEDS: Acetaminophen 500 MG Tablet 1000 MG PO ×2 (10:01→18:20)
[2019-06-04] MEDS: Fluticasone 0.05% 1 SPRAY NASAL.SRY 2 SPRAY NASAL ×2 (10:01→21:00)
[2019-06-04] MEDS: Famotidine 20 MG Tablet 40 MG PO ×2 (10:01→21:01)
[2019-06-04] MEDS: Menthol/Lanolin/Calamine/Znox 113 GM Tube 1 APPLIC TOPICAL ×2 (10:02→21:00)
[2019-06-04] MEDS: Lidocaine 5% Patch 2 PATCH TOPICAL (10:52)
[2019-06-04] MEDS: proCHLORPERazine 10 MG/2 ML Vial 5 MG IV (10:57)
--- NOTE | 2019-06-04 12:52 | PN_ITS ---
Patient Problems: Active and Suspected Problems (Last Reviewed 06/03/19 @ 04:14 by Garcia Mead MD) Hip pain (Acute) UTI (urinary tract infection) (Acute) Intractable pain (Acute) Subjective: Patient was seen and examined. She complains of severe nausea as well as persistent pain in the right hip. Denies any fever or chills. She is on a regular consistency diet. She generally feels unwell. Blood pressure is not controlled. Doppler ultrasound was negative for acute DVT in the right leg. Vitals/I&O's: Vital Signs Temp Pulse Resp BP Pulse Ox 98.5 F 81 18 153/110 H 99 06/04/19 07:46 06/04/19 09:55 06/04/19 07:46 06/04/19 09:55 06/04/19 07:46 Oxygen Delivery Method Room Air Weight: 67 kg Body Mass Index (BMI) 25.2 Finger Stick Blood Glucose 116 Intake and Output for Last 24 Hours 06/02/19 06/03/19 06/04/19 23:59 23:59 23:59 Intake Total 850 / 1090 240 / 240 Output Total 200 / 200 Balance 650 / 890 240 / 240 General: Alert, Oriented x3, Cooperative, - - Looks chronically unwell, fatigued HEENT: Atraumatic, PERRLA, EOMI, Normocephalic Oral: Moist Mucosa Neck: Supple Lungs: Normal air movement, Diminished - vesicular, at lung bases Cardiovascular: Regular rate, Regular Rhythm, Normal S1, Normal S2, No murmurs, - - right sided tunneled dialysis catheter Abdomen: Bowel Sounds Present, Soft, Non Tender, Non-Distended Extremities: - - LONG-wrap to right leg Skin: No rashes, No breakdown Musculoskeletal: No Tenderness to Palpation of Joints or Extremities Lymphatic: No Cervical, Supraclavicular, or Inguinal Adenopathy Neurological: Cranial nerves II-XII grossly intact, Neuro grossly intact Psych/Mental Status: Normal Affect, Appropriate Laboratory Results 06/03/19 12:20: Total Bilirubin 0.50, Direct Bilirubin 0.14, AST 27, ALT 8 L, Alkaline Phosphatase 134 H, Total Protein 6.5, Albumin 2.5 L, Globulin 4.0 06/03/19 16:22: POC Glucose 128 H 06/03/19 19:53: POC Glucose 132 H Current Medications Acetaminophen (Tylenol) 1,000 mg PO TID PRN PRN Reason: PAIN Last Admin: 06/04/19 10:01 Dose: 1,000 mg Documented by: Artificial Tears (Tears Naturale, Artificial Tears) 1 - 2 drop EACH EYE Q2H PRN PRN PRN Reason: DRY EYES Last Admin: 06/04/19 10:07 Dose: 2 drop Documented by: Atorvastatin Calcium (Lipitor) 20 mg PO QHS [facility] Last Admin: 06/03/19 22:08 Dose: 20 mg Documented by: Calamine/Phenol (Calmoseptine Ointment) 1 applic TOPICAL BID [facility]; Protocol Last Admin: 06/04/19 10:02 Dose: 1 applicatio Documented by: Carvedilol (Coreg) 25 mg PO BID [facility] Last Admin: 06/04/19 07:43 Dose: 25 mg Documented by: Cevimeline HCl (Evoxac) 30 mg PO TID@0800,1400,2000 [facility] Last Admin: 06/04/19 07:43 Dose: 30 mg Documented by: Clonazepam (Klonopin) 1 mg PO BID [facility] Stop: 06/07/19 22:01 Last Admin: 06/04/19 10:00 Dose: 1 mg Documented by: Clonidine (Catapres) 0.2 mg PO TID PRN PRN Reason: htn Last Admin: 06/04/19 10:01 Dose: 0.2 mg Documented by: Dextrose (D50w Syringe) 0 gm IV X1 PRN; Protocol PRN Reason: Hypoglycemia Docusate Sodium (Colace) 100 mg PO BID PRN PRN PRN Reason: Constipation Duloxetine HCl (Cymbalta) 120 mg PO DAILY [facility] Last Admin: 06/04/19 10:00 Dose: 120 mg Documented by: Famotidine (Pepcid) 40 mg PO BID [facility] Last Admin: 06/04/19 10:01 Dose: 40 mg Documented by: Fluticasone Propionate (Flonase Nasal [place]) 2 spray NASAL BID [facility] Last Admin: 06/04/19 10:01 Dose: 2 spray Documented by: Glucagon () 1 mg IM .X1 PRN PRN Reason: Hypoglycemia Heparin Sodium (Porcine) (Heparin Na) 5,000 unit SC Q8 [facility] Last Admin: 06/04/19 06:13 Dose: 5,000 unit Documented by: Hydralazine HCl (Apresoline Iv) 5 mg IV Q6H PRN PRN PRN Reason: BLOOD PRESSURE Hydrocortisone (Hytone) 1 applic TOPICAL BID PRN PRN; Protocol PRN Reason: ITCHING Hydroxychloroquine Sulfate (Plaquenil) 200 mg PO BIDCM [facility] Last Admin: 06/04/19 07:40 Dose: 200 mg Documented by: Ceftriaxone Sodium (Rocephin) 1 gm in 50 mls @ 100 mls/hr IV Q24H [facility] Last Infusion: 06/03/19 21:57 Dose: Infused Documented by: Lactobacillus Acidophilus (Acidophilus) 1 tablet PO DAILY [facility] Last Admin: 06/04/19 10:00 Dose: 1 tablet Documented by: Lidocaine (Lidoderm Patch) 2 patch TOPICAL DAILY [facility]; Protocol Last Admin: 06/04/19 10:52 Dose: 2 patch Documented by: Melatonin (Melatonin) 5 mg PO QHS [facility] Last Admin: 06/03/19 22:08 Dose: 5 mg Documented by: Methylphenidate HCl (Ritalin (G)) 5 mg PO DAILY PRN PRN PRN Reason: NARCOLEPSY Metoclopramide HCl (Metoclopramide Hcl) 5 mg PO TIDAC [facility] Last Admin: 06/04/19 10:58 Dose: 5 mg Documented by: Montelukast Sodium (Singulair) 10 mg PO QHS [facility] Last Admin: 06/03/19 22:08 Dose: 10 mg Documented by: Multivit/Ca Carb/B Cmplx/FA/Prenat (Nephrocaps, Renaphro) 1 capsule PO DAILY [facility] Last Admin: 06/04/19 10:00 Dose: 1 capsule Documented by: Nifedipine (Procardia Xl) 90 mg PO DAILY [facility] Last Admin: 06/04/19 07:43 Dose: 90 mg Documented by: Nutritional Formula (Nepro Carb Steady) 120 ml PO 4X/DAY [facility] Last Admin: 06/04/19 10:00 Dose: 120 ml Documented by: Ondansetron HCl (Zofran) 4 mg IV Q8H PRN PRN PRN Reason: NAUSEA/VOMITING Last Admin: 06/04/19 07:59 Dose: 4 mg Documented by: Oxycodone HCl (Oxyir) 5 mg PO Q6H PRN PRN PRN Reason: PAIN Last Admin: 09/22/19 07:41 Dose: 5 mg Documented by: Prednisone () 5 mg PO DAILYCM [facility] Last Admin: 06/04/19 07:40 Dose: 5 mg Documented by: Prochlorperazine Edisylate (Compazine Iv) 5 mg IV Q6H PRN PRN PRN Reason: NAUSEA/VOMITING Last Admin: 06/04/19 10:57 Dose: 5 mg Documented by: Senna (Senokot) 1 tablet PO BID [facility] Last Admin: 06/04/19 10:00 Dose: 1 tablet Documented by: Sevelamer Carbonate (Renvela) 1,600 mg PO TIDCM [facility] Last Admin: 06/04/19 11:00 Dose: 1,600 mg Documented by: Sodium Chloride () 10 - 40 ml IV UD PRN PRN Reason: SALINE FLUSH Last Admin: 06/04/19 10:57 Dose: 10 ml Documented by: Sodium Chloride ([place] Nasal [place]) 2 spray NASAL DAILY PRN PRN PRN Reason: SINUSITIS Last Admin: 06/04/19 03:19 Dose: 2 spray Documented by: Throat Lozenges (Cepacol Sore Throat Lozenge) 1 lozenge MUCOUS MEM Q2H PRN PRN PRN Reason: SORE THROAT Last Admin: 06/04/19 04:10 Dose: 1 lozenge Documented by: Vancomycin HCl () 1 lab MISCELL. MoWeFr@0600 [facility] Vancomycin HCl (Vancomycin Renal/Hd Dosing) 1 unit MISCELL. MoWeFr@0800 [facility] Medical Necessity - Tobacco Use Smoking Status: Never smoker Assessment/Plan All Active Problems (Last Reviewed 06/03/19 @ 04:14 by Garcia Mead MD) Hip pain (Acute) UTI (urinary tract infection) (Acute) Intractable pain (Acute) Accelerated hypertension (Acute) Extremity edema (Resolved) Hyperkalemia (Resolved) Hypertensive urgency, malignant (Resolved) Summary of care/Off service note: Day 2 of hospital stay 48-year-old female with past medical history of ESRD on hemodialysis, status post recent bilateral hip replacement, in the care home presents with intra ctable right hip pain and also being managed as acute UTI. 1. Persistent nausea, likely medication related, likely related to oxycodone ultrasound the gallbladder from the care home was negative for acute gallstones On IV Zofran and Compazine now Switched to clear liquid diet with advancement in her diet as she could tolerate On famotidine 40 PO BID 2. Acute UTI, urine cultures are pending, On day 2 of empiric ceftriaxone 3. ESRD on hemodialysis, history of SLE, on dialysis Wednesday- Wednesday- Wednesday Nephrology consulted, next dialysis is on Wednesday 4. Hypertension uncontrolled, on nifedipine, carvedilol, clonidine, continue with as needed hydralazine 5. Recent bilateral hip replacement, history of SLE, pain is fairly controlled Continue on scheduled Tylenol, PRN oxycodone 6. Anxiety/depression, continue on Klonopin, Cymbalta, methylphenidate 7. SLE, on hydroxychloroquine and prednisone 8. Chronic debility with recurrent falls at residential facility Patient is not happy at her current residential facility; requests switch to another facility Social work/case management consulted 9. DVT PPx- Heparin SC Code Visit OBSV E&M: 65906 Subsequent observation care L2
[2019-06-04 15:06] LABS: Bedside Glucose 108 mg/dL (70-110)
[2019-06-04] MEDS: Atorvastatin Calcium 20 MG Tablet PO (21:01)
[2019-06-04] MEDS: Ceftriaxone 1 GM/50 ML BAG IV (21:02)
[2019-06-04] MEDS: Montelukast 10 MG Tablet PO (21:02)
[2019-06-04 23:41] LABS: Bedside Glucose 68 mg/dL (70-110)
[2019-06-05] VITALS (10 sets, daily range): BP systolic 154–204; BP diastolic 80–129; PULSE 78–97; RESP 16–18; TEMP 36.4–36.8; O2SAT 94–100
[2019-06-05] MEDS: oxyCODONE 5 MG Tablet PO ×2 (00:19→19:52)
[2019-06-05] MEDS: Ondansetron 4 MG/2 ML Vial IV (00:20)
[2019-06-05 00:21] LABS: Bedside Glucose 101 mg/dL (70-110)
[2019-06-05] MEDS: cloNIDine HCl 0.2 MG Tablet PO ×2 (02:43→08:45)
[2019-06-05] MEDS: Acetaminophen 500 MG Tablet 1000 MG PO (02:43)
[2019-06-05] MEDS: hydrALAZINE 20 MG/ML Vial 5 MG IV (05:47)
[2019-06-05] MEDS: 0.9% NaCl Peripheral Flush Adult/Peds IV ×2 (05:47→22:22)
[2019-06-05] MEDS: Metoclopramide 5 MG TABLET PO ×3 (05:47→19:58)
[2019-06-05] MEDS: Heparin Injection (Vial) 5,000 UNIT/ML VIAL 5000 UNIT SC ×2 (05:47→21:04)
[2019-06-05 06:20] LABS: Absolute Lymphocyte Count 1.05 X10^3/uL (0.83-4.51); Absolute Neutrophil Count 6.8 X10^3/uL (2.0-7.7); Basophil# 0.02 X10^3/uL; Basophil% 0.2 % (0-1); Hematocrit 27.9 % (37-47); Hemoglobin 9.1 g/dL (12.0-15.0); Lymphocyte # 1.05 X10^3/ul (4.0); Mean Corp Hgb Conc 32.6 g/dL (32-36); Mean Corpuscular Hgb 29.3 pg (27.0-32.0); Mean Corpuscular Volume 89.7 fL (81-99); Mean Platelet Vol. 8.7 fl (6.2-12.0); Monocyte# 0.86 X10^3/uL; Monocyte% 9.9 % (0-10); NRBC Flagged by Analyzer 0 % (0-5); Neutrophil # 6.77 X10^3/uL (2.7-7.7); Neutrophil % 77.6 % (47-70); Platelet Count 198 K/mm3 (150-450); RBC Distribution Width CV 15.2 % (11.6-14.6); RBC Distribution Width SD 49.2 fl (35.1-43.9); Red Blood Count 3.11 M/mm3 (4.2-5.4); White Blood Count 8.7 K/mm3 (4.4-11.0)
[2019-06-05 06:29] LABS: Vancomycin, Random Level 12.3 ug/mL (0.0-15.0)
[2019-06-05 06:35] LABS: Albumin, Serum 2.3 g/dL (3.2-5.0); BUN 35 mg/dL (7-18); BUN/Creat Ratio 7.5 RATIO (10-20); Calcium,Total 8.5 mg/dL (8.5-10.1); Chloride 93 mmol/L (98-107); Creatinine, Serum 4.67 mg/dL (0.55-1.02); EST Glomerular Filtration Rate 11 mL/min (>60); Est Glom Filt Rate - Afr Amer 13 mL/min (>60); Glucose 71 mg/dL (74-106); Phosphorus 3.5 mg/dL (2.5-4.9); Potassium 3.8 mmol/L (3.5-5.1); Sodium Level 133 mmol/L (136-145)
[2019-06-05 07:01] LABS: Bedside Glucose 63 mg/dL (70-110)
[2019-06-05 07:01] LABS: Bedside Glucose 104 mg/dL (70-110)
[2019-06-05] MEDS: proCHLORPERazine 10 MG/2 ML Vial 5 MG IV (08:44)
[2019-06-05] MEDS: SEVELAMER CARBONATE 800 MG TABLET 1600 MG PO ×3 (08:45→19:56)
[2019-06-05] MEDS: CEVIMELINE HCL 30 MG CAPSULE PO ×2 (08:45→19:56)
[2019-06-05] MEDS: Hydroxychloroquine 200 MG Tablet PO ×2 (08:45→19:55)
[2019-06-05] MEDS: predniSONE 5 MG Tablet PO (08:45)
[2019-06-05] MEDS: Lidocaine 5% Patch 2 PATCH TOPICAL (10:40)
[2019-06-05] MEDS: Menthol/Lanolin/Calamine/Znox 113 GM Tube 1 APPLIC TOPICAL ×2 (10:40→22:23)
[2019-06-05] MEDS: DULoxetine Hcl 60 MG Capsule 120 MG PO (11:00)
[2019-06-05] MEDS: Fluticasone 0.05% 1 SPRAY NASAL.SRY 2 SPRAY NASAL ×2 (11:00→22:23)
[2019-06-05] MEDS: NIFEdipine 90 MG Tablet PO (11:02)
[2019-06-05] MEDS: Folic Acid/Vitamin B Comp W-C 1 Capsule 1 CAP PO (11:02)
[2019-06-05] MEDS: Famotidine 20 MG Tablet 40 MG PO ×2 (11:02→22:22)
[2019-06-05] MEDS: Senna Tablet 1 TABLET PO ×2 (11:03→22:49)
--- NOTE | 2019-06-05 11:03 | PCM.PROGNOTE ---
Patient Problems: Active and Suspected Problems (Last Reviewed 06/03/19 @ 04:14 by Garcia Mead MD) Hip pain (Acute) UTI (urinary tract infection) (Acute) Intractable pain (Acute) Subjective: Ms. Plummer is a 48-year-old female with a history of end-stage renal disease on hemodialysis, hypertension, chronic steroid therapy on prednisone 5 mg daily, chronic diarrhea, pulmonary hypertension, chronic anemia, narcolepsy, cervical spondylosis, diabetes mellitus type 2, QT prolongation and SLE who presented to the ED on 06/03/2019 complaining of severe right hip pain, dysuria and increased frequency of urination. On 04/18/2019 she had a right hip dislocation after sliding out of her chair at home. She had closed reduction of the dislocation by Dr. Thao in the emergency department and was admitted postprocedure for lethargy. She was discharged to assisted later that same day after the sedation wore off. She again presented to the emergency department on 04/30/2019 complaining of right hip pain and had markedly elevated blood pressure at 234/107. She was admitted for blood pressure control. Coreg was increased to 25 mg twice daily. She was discharged on 05/01/2019. She subsequently had a R hip replacement and went back to assisted post-op. At the time of admission on 06/03/2019 she was taking oxycodone 5 mg p.o. 3 times daily and 1000 mg of acetaminophen 3 times daily. Doppler ultrasound of the right lower extremity revealed no evidence of DVT. She has had no fevers. White blood cell count was within normal limits. Hemoglobin is stable at 9.9. she is being followed by Dr. Arline Ambriz for ESRD and HD. Blood pressures are labile and have ranged from 130/67 to 204/121 since admission. She is 94 to 100% saturated on room air. Continues to complain of severe pain in the right hip however she is not even taking OxyIR as often as she could. She has been getting Tylenol approximately every 8 hours. Urine culture from 06/04/2019 has no growth. she is c/o of total body pain and feeling unwell. The RN had to wake her up and she immediately began to complain of anxiety. She has an appointment with Dr. Mclean tomorrow. She is already on chronic benzodiazepine therapy. She is lethargic. Objective: PHYSICAL EXAM: GENERAL: alert, oriented X 3, Cooperative, NAD, lethargic, looks generally unwell chronically ORAL: moist mucosa, no mucosal lesions NECK: No JVD, supple, trachea midline LUNGS: CTA, symmetric chest expansion, diminished HEART: RRR, Normal S1 and S2, no rub, no gallop, no murmur ABDOMEN: soft, NT, ND, BS present, no guarding with palpation EXTREMITIES: no edema, no cyanosis, no calf tenderness SKIN: No rashes, no breakdown NEUROLOGIC: no focal neurologic deficits PSYCH: appropriate, flat affect, pleasant Lying flat in bed with non SOB - Physical Exam Vital Signs Temp Pulse Resp BP Pulse Ox 98.1 F 82 16 204/121 H 100 06/05/19 08:28 06/05/19 08:28 06/05/19 08:28 06/05/19 08:28 06/05/19 08:28 Oxygen Delivery Method Room Air Weight: 147 lb 11.355 oz Body Mass Index (BMI) 25.2 Finger Stick Blood Glucose 116 Intake and Output for Last 24 Hours 06/03/19 06/04/19 06/05/19 23:59 23:59 23:59 Intake Total 850 / 1090 1190 / 1190 Output Total 200 / 200 250 / 250 200 / 200 Balance 650 / 890 940 / 940 -200 / -200 Microbiology Past 72 Hours 06/04/19 14:20 Urine Culture - Preliminary Urine Catheter - Catheter Culture exhibits no growth. Laboratory Tests Past 24 Hrs 06/05/19 06/05/19 06/05/19 05:40 05:40 05:40 WBC 8.7 RBC 3.11 L Hgb 9.1 L Hct 27.9 L MCV 89.7 MCH 29.3 MCHC 32.6 RDW Std Deviation 49.2 H RDW Coeff of Jah 15.2 H Plt Count 198 MPV 8.7 Immature Gran % (Auto) 0.300 Neut % (Auto) 77.6 H Lymph % (Auto) 12.0 L Elliott % (Auto) 9.9 Eos % (Auto) 0.0 Baso % (Auto) 0.2 Absolute Neuts (auto) 6.8 Absolute Lymphs (auto) 1.05 Nucleated RBC % 0 Sodium 133 L Potassium 3.8 Chloride 93 L Carbon Dioxide 29.0 BUN 35 H Creatinine 4.67 H Estim Creat Clear Calc 13.00 Est GFR (MDRD) Af Amer 13 L Est GFR (MDRD) Non-Af 11 L BUN/Creatinine Ratio 7.5 L Glucose 71 L Calcium 8.5 Phosphorus 3.5 Albumin 2.3 L Random Vancomycin 12.3 POC Glucose 06/05/19 06/05/19 06/05/19 06:22 05:36 00:16 POC Glucose 104 63 L 101 06/04/19 06/04/19 23:35 15:00 POC Glucose 68 L 108 Medical Necessity - Tobacco Use Smoking Status: Never smoker Assessment/Plan All Active Problems (Last Reviewed 06/03/19 @ 04:14 by Garcia Mead MD) Hip pain (Acute) UTI (urinary tract infection) (Acute) Intractable pain (Acute) Accelerated hypertension (Acute) Extremity edema (Resolved) Hyperkalemia (Resolved) Hypertensive urgency, malignant (Resolved) Rocephin day #2 Impressions 1. RLE pain - recent R hip replacement following a dislocation of the R hip after sliding off a chair onto the floor. continue the current pain medication. 2. Suspected UTI - urine culture has no growth so far. Continue antibiotics until we have the final culture report. 3. Nausea/vomiting -suspect secondary to narcotics. Currently on a clear liquid diet and famotidine 40 mg twice daily. Oral intake on 06/04/2019 was 1140. 4. End-stage renal disease on hemodialysis-dialysis is scheduled for today. 5. Chronic conditions include hypertension/anxiety/depression/SLE/chronic prednisone use/chronic debility with recurrent falls at the shelter, anemia of chronic renal failure. 6. DVT prophylaxis with heparin, SCDs and PIOTR thorpee Await the final results of the urine culture and continue antibiotics until that time. She is afebrile and has a normal white blood cell count....... if the urine culture remains negative tomorrow will likely discharge at that time. ESR and CRP are only mildly elevated and this may be due to infection not exacerbation of SLE Code Visit Inpatient E&M: 70944 Subs Hosp L2
[2019-06-05] MEDS: Nepro Liquid 120 ML LIQUID PO (11:06)
[2019-06-05] MEDS: clonazePAM 1 MG Tablet PO ×2 (11:06→21:04)
--- NOTE | 2019-06-05 11:13 | CASEMGMT ---
Addendum entered by Agata Torres 06/05/19 14:59: SW spoke with Mariella at [facility] who states they are able to accept pt today. Physician updated. Pt's friend Mallory Mathis ([phone]) present at [facility] and would like to speak to this worker. SW met with pt and Mallory. Pt gave this worker permission to speak to her in front of her guest. SW informed pt and Mallory that [facility] is able to accept pt today. SW informed pt that this worker did call [facility] and Rasheeda at [facility] confirmed that they are not able to accept pt as they are not able to accommodate pt's needs. Mallory states that she used to work with Hospice/Palliative Care and asked if Palliative Care could be made for pt. SW informed Mallory that this worker can complete Palliative Care Screening tool and update [facility] about Palliative Care and SNF is able to follow up with pt once she is more awake at SNF. Mallory states understanding. Mallory states that she would like to be added to pt's demographics and would like to be notified when pt is discharged. Pt agreeable to this. SW informed pt and Mallory that physician was thinking discharge today after dialysis. Mallory and pt denied additional needs or concerns at this time. DION spoke with RN who states dialysis has not seen pt yet. SW called registration to add Mallory Mathis to pt's demographics. SW placed green sheet and transportation form on pt's chart. SW completed convalescent 7000 in [facility] and placed on pt's chart. Plan: [facility] once medically cleared Agata Torres SHIFT NURSE MANAGER, NAPHTHALENE OPERATOR HELPER Addendum entered by Agata Torres 06/05/19 12:38: DION met with pt and introduced self and role at [facility]. Pt is alert and orientated x3. Pt confirms that she came from [place] but doesn't want to return there. Pt confirms that she would like to go to [facility] but asked if this worker could call [facility] to ask why they are not able to accept pt back. Pt states that she was told initially it was because of dialysis and transportation but states she has transportation arranged through [facility]. SW informed pt that this worker did send referral to [facility] and is waiting to determine if they are able to accept pt. SW informed pt that this worker will also call [facility] to ask if they are able to accept pt back with transportation being arranged through [facility] for Dialysis. Pt states understanding. DION placed a call to Rasheeda at [facility] and Rasheeda states they are not able to accept pt back as they are not able to accommodate pt's needs. Per physician pt is ready for discharge today once SNF is able to accept pt. Plan: [facility] today pending acceptance Original Note: Social Work Note Per previous notes, pt came from [place] but would like to go to [facility] at discharge. DION discussed case with social service technician Eva Sullivan who states pt hasn't had a break in care and should be able to discharge to [facility] without needed three midnight rule under Medicare. DION placed a call to Mariella at [facility] and provided referral. DION faxed referral. Plan: [facility] pending acceptance Agata Torres SHIFT NURSE MANAGER, NAPHTHALENE OPERATOR HELPER
--- NOTE | 2019-06-05 11:40 | CON.PCM_ITS ---
Consultation - Renal 06/05/19 PCP/ Referring MD: Requesting physician: [] Primary care physician: Mitchell Bowen MD Reason for Consultation:: ESRD on hemodialysis Wednesday, Wednesday, Wednesday - History of Present Illness History of Present Illness: The patient is a 48 year old F with ESRD due to diabetes history of lupus, hypertension, diabetes presents to [place] [facility] for intractable right hip pain. She was hospitalized at [facility] for right hip infection and revision. Subsequently transferred to [facility] for rehab now await approval to [facility] per patient request. Her last dialysis was Wednesday at [facility] prior to admission. She is set for hemodialysis today. She states her right hip pain is worse today. She was able to transfer to the chair and walk yesterday but unable to today. She complains of nausea and vomiting, poor appetite. Albumin low at 2.3 on protein supplements in the hospital. - Allergies Allergies: Allergies LONG Inhibitors Allergy (Verified 06/02/19 20:56) Angioedema adhesive Allergy (Verified 06/02/19 20:56) Rash diphenhydramine Allergy (Verified 06/03/19 03:13) Unknown lisinopril Allergy (Verified 06/02/19 20:56) Angioedema Sulfa (Sulfonamide Antibiotics) Allergy (Verified 06/02/19 20:56) Rash sulfamethoxazole [From Bactrim] Allergy (Verified 06/02/19 20:56) Rash trimethoprim [From Bactrim] Allergy (Verified 06/02/19 20:56) Rash tuberculin, purified protein deriva Allergy (Verified 06/03/19 03:13) Unknown Angioderm Adverse Reaction (Unknown, Uncoded 06/02/19 20:56) Unknown - Current Medications Current Medications: Current Medications Acetaminophen (Tylenol) 1,000 mg PO TID PRN PRN Reason: PAIN Last Admin: 06/05/19 02:43 Dose: 1,000 mg Documented by: Artificial Tears (Tears Naturale, Artificial Tears) 1 - 2 drop EACH EYE Q2H PRN PRN PRN Reason: DRY EYES Last Admin: 06/04/19 10:07 Dose: 2 drop Documented by: Atorvastatin Calcium (Lipitor) 20 mg PO QHS ENRIQUE Last Admin: 06/04/19 21:01 Dose: 20 mg Documented by: Calamine/Phenol (Calmoseptine Ointment) 1 applic TOPICAL BID ENRIQUE; Protocol Last Admin: 06/05/19 10:40 Dose: 1 applicatio Documented by: Carvedilol (Coreg) 25 mg PO BID [facility] Last Admin: 06/04/19 21:00 Dose: 25 mg Documented by: Cevimeline HCl (Evoxac) 30 mg PO TID@0800,1400,2000 [facility] Last Admin: 06/05/19 08:45 Dose: 30 mg Documented by: Clonazepam (Klonopin) 1 mg PO BID [facility] Stop: 06/07/19 22:01 Last Admin: 06/05/19 11:06 Dose: 1 mg Documented by: Clonidine (Catapres) 0.2 mg PO TID PRN PRN Reason: htn Last Admin: 06/05/19 08:45 Dose: 0.2 mg Documented by: Dextrose (D50w Syringe) 0 gm IV X1 PRN; Protocol PRN Reason: Hypoglycemia Docusate Sodium (Colace) 100 mg PO BID PRN PRN PRN Reason: Constipation Duloxetine HCl (Cymbalta) 120 mg PO DAILY [facility] Last Admin: 06/05/19 11:00 Dose: 120 mg Documented by: Famotidine (Pepcid) 40 mg PO BID [facility] Last Admin: 06/05/19 11:02 Dose: 40 mg Documented by: Fluticasone Propionate (Flonase Nasal [place]) 2 spray NASAL BID [facility] Last Admin: 06/05/19 11:00 Dose: 2 spray Documented by: Glucagon () 1 mg IM .X1 PRN PRN Reason: Hypoglycemia Heparin Sodium (Porcine) (Heparin Na) 5,000 unit SC Q8 [facility] Last Admin: 06/05/19 05:47 Dose: 5,000 unit Documented by: Hydralazine HCl (Apresoline Iv) 5 mg IV Q6H PRN PRN PRN Reason: BLOOD PRESSURE Last Admin: 06/05/19 05:47 Dose: 5 mg Documented by: Hydrocortisone (Hytone) 1 applic TOPICAL BID PRN PRN; Protocol PRN Reason: ITCHING [facility] Last Admin: 06/05/19 08:45 Dose: 200 mg Documented by: Ceftriaxone Sodium (Rocephin) 1 gm in 50 mls @ 100 mls/hr IV Q24H [facility] Last Infusion: 06/04/19 21:32 Dose: Infused Documented by: Lactobacillus Acidophilus (Acidophilus) 1 tablet PO DAILY [facility] Last Admin: 06/05/19 11:00 Dose: 1 tablet Documented by: Lidocaine (Lidoderm Patch) 2 patch TOPICAL DAILY [facility]; Protocol Last Admin: 06/05/19 10:40 Dose: 2 patch Documented by: Melatonin (Melatonin) 5 mg PO QHS [facility] Last Admin: 06/04/19 22:17 Dose: Not Given Documented by: Methylphenidate HCl (Ritalin (G)) 5 mg PO DAILY PRN PRN PRN Reason: NARCOLEPSY Metoclopramide HCl (Metoclopramide Hcl) 5 mg PO TIDAC [facility] Last Admin: 06/05/19 11:03 Dose: 5 mg Documented by: Montelukast Sodium (Singulair) 10 mg PO QHS [facility] Last Admin: 06/04/19 21:02 Dose: 10 mg Documented by: Multivit/Ca Carb/B Cmplx/FA/Prenat (Nephrocaps, Renaphro) 1 capsule PO DAILY [facility] Last Admin: 06/05/19 11:02 Dose: 1 capsule Documented by: Nifedipine (Procardia Xl) 90 mg PO DAILY [facility] Last Admin: 06/05/19 11:02 Dose: 90 mg Documented by: Nutritional Formula (Nepro Carb Steady) 120 ml PO 4X/DAY [facility] Last Admin: 06/05/19 11:06 Dose: 120 ml Documented by: Ondansetron HCl (Zofran) 4 mg IV Q8H PRN PRN PRN Reason: NAUSEA/VOMITING Last Admin: 06/05/19 00:20 Dose: 4 mg Documented by: Oxycodone HCl (Oxyir) 5 mg PO Q6H PRN PRN PRN Reason: PAIN Last Admin: 06/05/19 00:19 Dose: 5 mg Documented by: [facility]one () [facility] Last Admin: 06/05/19 08:45 Dose: 5 mg Documented by: Prochlorperazine Edisylate (Compazine Iv) 5 mg IV Q6H PRN PRN PRN Reason: NAUSEA/VOMITING Last Admin: 06/05/19 08:44 Dose: 5 mg Documented by: Senna (Senokot) 1 tablet PO BID [facility] Last Admin: 06/05/19 11:03 Dose: 1 tablet Documented by: Sevelamer Carbonate (Renvela) 1,600 mg PO TIDCM ENRIQUE Last Admin: 06/05/19 08:45 Dose: 1,600 mg Documented by: Sodium Chloride () 10 - 40 ml IV UD PRN PRN Reason: SALINE FLUSH Last Admin: 06/05/19 05:47 Dose: 20 ml Documented by: Sodium Chloride ([place] Nasal [place]) 2 spray NASAL DAILY PRN PRN PRN Reason: SINUSITIS Last Admin: 06/04/19 03:19 Dose: 2 spray Documented by: Throat Lozenges (Cepacol Sore Throat Lozenge) 1 lozenge MUCOUS MEM Q2H PRN PRN PRN Reason: SORE THROAT Last Admin: 06/04/19 20:58 Dose: 1 lozenge Documented by: - Past Medical History Past Medical History (Chronic Problems): Chronic Problems (Last Reviewed 06/03/19 @ 04:14 by Garcia Mead MD) Prolonged QT interval (Chronic) Presence of surgically created arteriovenous shunt for hemodialysis (Chronic ~11/2017) Status post insertion of dialysis catheter (Chronic) Altered mental status (Chronic) due to sedation from Propofol used to reduce the R hip dislocation in the ED Uncontrolled hypertension (Chronic) ESRD (end stage renal disease) on dialysis (Chronic) Chronic diarrhea (Chronic) Nonrheumatic mitral (valve) insufficiency (Chronic) Secondary pulmonary arterial hypertension (Chronic) Non-rheumatic tricuspid valve insufficiency (Chronic) End stage renal disease (Chronic) on HD Chronic anemia (Chronic) Hypertension (Chronic) Narcolepsy (Chronic) Lupus nephritis (Chronic) Status post kidney and liver biopsy (fatty liver) Degenerative disc disease, cervical (Chronic) Cervical spondylosis (Chronic) Diabetes mellitus, type II (Chronic) SLE (systemic lupus erythematosus) (Chronic) - Past Surgical History Surgical History: - - failed AVF left arm, AVF right arm - Social History Smoking Status: Never smoker Alcohol: None - Family History Maternal Family History: Family History (Last Reviewed 06/03/19 @ 04:14 by Garcia Mead MD) Mother Hypertension Kidney disease ALS (amyotrophic lateral sclerosis) Father Heart disease Hypertension Kidney disease Diabetes History Items: Diabetes, High Cholesterol, Heart Disease, Hypertension, Renal Disease, - Paternal Family History: Family History (Last Reviewed 06/03/19 @ 04:14 by Garcia Mead MD) Mother Hypertension Kidney disease ALS (amyotrophic lateral sclerosis) Father Heart disease Hypertension Kidney disease Diabetes History Items: Diabetes, High Cholesterol, Heart Disease, Hypertension, Renal Disease Sibling Family History: Family History (Last Reviewed 06/03/19 @ 04:14 by Garcia Mead MD) Mother Hypertension Kidney disease ALS (amyotrophic lateral sclerosis) Father Heart disease Hypertension Kidney disease Diabetes History Items: Diabetes Review of Systems Constitutional: Reports: Anorexia, Weakness. Denies: Chills, Fever Cardiovascular: Denies: Chest Pain Respiratory: Denies: Cough, Shortness of Breath Gastrointestinal: Reports: Nausea, Vomiting. Denies: Abdominal Pain, Constipation, Diarrhea Genitourinary: Reports: Dysuria, Frequency, - - UTI Musculoskeletal: Reports: - - Lower extremity edema right, - - Right hip pain Skin: Denies: Rash Psychiatric: Reports: Anxiety, Depression Patient Problems: Active and Suspected Problems (Last Reviewed 06/03/19 @ 04:14 by Garcia Mead MD) Hip pain (Acute) UTI (urinary tract infection) (Acute) Intractable pain (Acute) - Physical Exam General: Alert, Oriented x3, Cooperative, No apparent distress HEENT: PERRLA, EOMI Neck: Supple Lungs: Clear to auscultation Cardiovascular: Regular rate Abdomen: Bowel Sounds Present, Soft, Non Tender, Non-Distended Extremities: Edema - R>L Skin: No rashes Musculoskeletal: Muscle Wasting Neurological: - - No tremor Psych/Mental Status: Depressed, Alert and oriented to time, place, person, mood and affect Vital Signs Temp Pulse Resp BP Pulse Ox 98.1 F 82 16 204/121 H 100 06/05/19 08:28 06/05/19 08:28 06/05/19 08:28 06/05/19 08:28 06/05/19 08:28 Oxygen Delivery Method Room Air Weight: 67 kg Body Mass Index (BMI) 25.2 Finger Stick Blood Glucose 116 Intake and Output for Last 24 Hours 06/03/19 06/04/19 06/05/19 23:59 23:59 23:59 Intake Total 850 / 1090 1190 / 1190 Output Total 200 / 200 250 / 250 200 / 200 Balance 650 / 890 940 / 940 -200 / -200 Microbiology Past 72 Hours 06/04/19 14:20 Urine Culture - Preliminary Urine Catheter - Catheter Culture exhibits no growth. Laboratory Tests Past 24 Hrs 06/05/19 06/05/19 06/05/19 05:40 05:40 05:40 WBC 8.7 RBC 3.11 L Hgb 9.1 L Hct 27.9 L MCV 89.7 MCH 29.3 MCHC 32.6 RDW Std Deviation 49.2 H RDW Coeff of Jah 15.2 H Plt Count 198 MPV 8.7 Immature Gran % (Auto) 0.300 Neut % (Auto) 77.6 H Lymph % (Auto) 12.0 L [place] % (Auto) 9.9 Eos % (Auto) 0.0 Baso % (Auto) 0.2 Absolute Neuts (auto) 6.8 Absolute Lymphs (auto) 1.05 Nucleated RBC % 0 Sodium 133 L Potassium 3.8 Chloride 93 L Carbon Dioxide 29.0 BUN 35 H Creatinine 4.67 H Estim Creat Clear Calc 13.00 Est GFR (MDRD) Af Amer 13 L Est GFR (MDRD) Non-Af 11 L BUN/Creatinine Ratio 7.5 L Glucose 71 L Calcium 8.5 Phosphorus 3.5 Albumin 2.3 L Random Vancomycin 12.3 POC Glucose 06/05/19 06/05/19 06/05/19 06:22 05:36 00:16 POC Glucose 104 63 L 101 06/04/19 06/04/19 23:35 15:00 POC Glucose 68 L 108 Assessment/Plan All Active Problems (Last Reviewed 06/03/19 @ 04:14 by Garcia Mead MD) Hip pain (Acute) UTI (urinary tract infection) (Acute) Intractable pain (Acute) Accelerated hypertension (Acute) Extremity edema (Resolved) Hyperkalemia (Resolved) Hypertensive urgency, malignant (Resolved) 1. ESRD hemodialysis Fridays. Dialysis arranged for later today. 2. Anemia SHAUN therapy on dialysis 3. DM type II primary service management 4. Hypertension on home blood pressure medications. 5. Right hip pain cautious use of narcotics with history of encephalopathy 6. Anxiety, depression history of dependency on anxiolytics. 7. Debility status post right hip infection. Await disposition to ECF. Patient does not want to go back to [place]. Await approval to the [place].
[2019-06-05 12:47] LABS: Erythrocyte Sedimentation Rate 27 mm/hr (0-20)
--- NOTE | 2019-06-05 15:42 | CHAPLAIN ---
Type of Pastoral Visit _x__ Initial Visit ___ Follow-up Visit ___ On-call Visit ___ General Patient Visit ___ Spiritual Assessment ___ Family Conference ___ Bereavement ___ Rapid Response ___ Code Blue ___ Other (describe below) Pastoral Care Referral From _x__ Patient ___ Family ___ Nurse ___ Physician ___ Political Consultant ___ Certified Professional Controller ___ Other (describe below) Sacrament/Intervention _x__ Active listening ___ Anointing ___ Rastafari ___ Bereavement ___ Communion _x__ Cornelia exploration ___ ___ Life review _x__ Prayer ___ Reconciliation ___ Sacrament of Sick _x__ Supportive presence ___ Wedding ___ Other (describe below) Pastoral Comments patient states that she has discomfort and her life long health issues are getting worse lately; pt admits to not coping very well and being scared; pt asks for leather tacker to stay with her for awhile so she is not alone and to talk to her to help her find comfort; this leather tacker read to patient from the [facility] and she became still and about to fall asleep
[2019-06-05 16:50] LABS: Bedside Glucose 111 mg/dL (70-110)
[2019-06-05] MEDS: Epoetin Alfa epbx 10,000 UNITS/ML 6000 UNIT IV (18:30)
[2019-06-05] MEDS: Vancomycin IV 500 MG/100 ML BAG 100 MG IV (18:45)
--- NOTE | 2019-06-05 19:48 | DIALYSIS ---
Hemodialysis x 3 hours with 3K bath; Tolerated well. Removed = -3000; RIJ CVC capped & locked with heparin per lumen fill volume. Report given to ROSHAN Baca.
[2019-06-05 20:35] LABS: Bedside Glucose 106 mg/dL (70-110)
[2019-06-05] MEDS: Atorvastatin Calcium 20 MG Tablet PO (22:22)
[2019-06-05] MEDS: Carvedilol 25 MG Tablet PO (22:22)
[2019-06-05] MEDS: MELATONIN 10 MG TABLET 5 MG PO (22:22)
[2019-06-05] MEDS: Ceftriaxone 1 GM/50 ML BAG IV (22:24)
[2019-06-05] MEDS: Montelukast 10 MG Tablet PO (22:49)
[2019-06-06] MEDS: Ondansetron 4 MG/2 ML Vial IV ×3 (00:29→17:32)
[2019-06-06] MEDS: 0.9% NaCl Peripheral Flush Adult/Peds IV ×5 (00:29→17:33)
[2019-06-06 01:06] LABS: Bedside Glucose 69 mg/dL (70-110)
[2019-06-06 01:06] LABS: Bedside Glucose 74 mg/dL (70-110)
[2019-06-06 01:06] LABS: Bedside Glucose 100 mg/dL (70-110)
[2019-06-06 04:00] VITALS: BP 187/102; PULSE 86; RESP 18; TEMP 36.5; O2SAT 97
[2019-06-06 04:07] VITALS: BP 187/102; PULSE 86
[2019-06-06] MEDS: hydrALAZINE 20 MG/ML Vial 5 MG IV (04:07)
[2019-06-06] MEDS: Acetaminophen 500 MG Tablet 1000 MG PO ×2 (04:14→15:59)
[2019-06-06] MEDS: Nepro Liquid 120 ML LIQUID PO ×5 (04:15→21:57)
[2019-06-06] MEDS: proCHLORPERazine 10 MG/2 ML Vial 5 MG IV ×2 (04:34→22:01)
[2019-06-06 04:46] LABS: Bedside Glucose 78 mg/dL (70-110)
[2019-06-06 06:11] LABS: Albumin, Serum 2.3 g/dL (3.2-5.0); BUN 20 mg/dL (7-18); BUN/Creat Ratio 5.7 RATIO (10-20); Calcium,Total 8.3 mg/dL (8.5-10.1); Chloride 95 mmol/L (98-107); Creatinine, Serum 3.48 mg/dL (0.55-1.02); EST Glomerular Filtration Rate 15 mL/min (>60); Est Glom Filt Rate - Afr Amer 18 mL/min (>60); Estimated Creatinine Clearance 17.44 ml/min; Glucose 107 mg/dL (74-106); Phosphorus 2.4 mg/dL (2.5-4.9); Potassium 3.3 mmol/L (3.5-5.1); Sodium Level 133 mmol/L (136-145)
[2019-06-06] MEDS: cloNIDine HCl 0.2 MG Tablet PO ×2 (06:23→09:14)
[2019-06-06] MEDS: Heparin Injection (Vial) 5,000 UNIT/ML VIAL 5000 UNIT SC ×3 (06:24→21:57)
[2019-06-06 06:35] LABS: Bedside Glucose 53 mg/dL (70-110)
[2019-06-06 07:55] LABS: Bedside Glucose 86 mg/dL (70-110)
[2019-06-06] MEDS: Hydroxychloroquine 200 MG Tablet PO ×2 (08:37→16:00)
[2019-06-06] MEDS: Metoclopramide 5 MG TABLET PO ×3 (08:37→15:43)
[2019-06-06] MEDS: CEVIMELINE HCL 30 MG CAPSULE PO ×2 (08:38→13:00)
[2019-06-06] MEDS: SEVELAMER CARBONATE 800 MG TABLET 1600 MG PO ×3 (08:39→16:01)
[2019-06-06] MEDS: predniSONE 5 MG Tablet PO (08:40)
[2019-06-06] MEDS: Carvedilol 25 MG Tablet PO ×3 (08:41→20:36)
[2019-06-06] MEDS: DULoxetine Hcl 60 MG Capsule 120 MG PO (08:41)
[2019-06-06] MEDS: Menthol/Lanolin/Calamine/Znox 113 GM Tube 1 APPLIC TOPICAL ×2 (08:41→20:29)
[2019-06-06] MEDS: Fluticasone 0.05% 1 SPRAY NASAL.SRY 2 SPRAY NASAL ×2 (08:42→20:29)
[2019-06-06] MEDS: Folic Acid/Vitamin B Comp W-C 1 Capsule 1 CAP PO ×2 (08:43→08:44)
[2019-06-06] MEDS: Famotidine 20 MG Tablet 40 MG PO ×2 (08:44→21:57)
[2019-06-06] MEDS: Senna Tablet 1 TABLET PO ×2 (08:45→22:01)
[2019-06-06] MEDS: NIFEdipine 90 MG Tablet PO (08:46)
[2019-06-06] MEDS: Lidocaine 5% Patch 2 PATCH TOPICAL (08:50)
[2019-06-06] MEDS: clonazePAM 1 MG Tablet PO ×2 (08:59→21:57)
[2019-06-06 09:15] VITALS: BP 192/123; PULSE 89; RESP 16; TEMP 36.8; O2SAT 100
--- NOTE | 2019-06-06 12:35 | CASEMGMT ---
Social Work Palliative Care Screening Tool completed with pt score of 9. Will send tool along with pt information to [facility] and request SNF follow up with palliative care once pt arrives at SNF. ALISA Valera
[2019-06-06] MEDS: oxyCODONE 5 MG Tablet PO (13:00)
[2019-06-06] MEDS: cloNIDine HCl 0.2 MG Patch TRANSDERM. (15:47)
[2019-06-06 15:52] VITALS: BP 144/82; PULSE 87; RESP 16; TEMP 37.2; O2SAT 100
--- NOTE | 2019-06-06 16:44 | CASEMGMT ---
Social Work Note Physician states pt is not medically cleared for discharge today. SW updated Mariella at [facility] that pt will not be discharged today. Plan: [facility] once medically cleared Agata Torres LEAF SORTER, SEPTIC TANK INSTALLER
--- NOTE | 2019-06-06 16:49 | PCM.PN.REN ---
Patient Problems: Active and Suspected Problems (Last Reviewed 06/03/19 @ 04:14 by Garcia Mead MD) Hip pain (Acute) UTI (urinary tract infection) (Acute) Intractable pain (Acute) - Physical Exam Vital Signs Temp Pulse Resp BP Pulse Ox 98.9 F 87 16 144/82 H 100 06/06/19 15:52 06/06/19 15:52 06/06/19 15:52 06/06/19 15:52 06/06/19 15:52 Oxygen Delivery Method Room Air Weight: 67 kg Body Mass Index (BMI) 25.2 Finger Stick Blood Glucose 116 Intake and Output for Last 24 Hours 06/04/19 06/05/19 06/06/19 23:59 23:59 23:59 Intake Total 1190 / 1190 360 / 360 400 / 400 Output Total 250 / 250 6200 / 6200 Balance 940 / 940 -5840 / -5840 400 / 400 Microbiology Past 72 Hours 06/04/19 14:20 Urine Culture - Final Urine Catheter - Catheter Culture exhibits no growth. Laboratory Tests Past 24 Hrs 06/06/19 05:12 Sodium 133 L Potassium 3.3 L Chloride 95 L Carbon Dioxide 29.0 BUN 20 H Creatinine 3.48 H Estim Creat Clear Calc 17.44 Est GFR (MDRD) Af Amer 18 L Est GFR (MDRD) Non-Af 15 L BUN/Creatinine Ratio 5.7 L Glucose 107 H Calcium 8.3 L Phosphorus 2.4 L Albumin 2.3 L POC Glucose 06/06/19 06/06/19 06/06/19 07:48 06:28 04:00 POC Glucose 86 53 L 78 06/06/19 06/06/19 06/06/19 00:57 00:38 00:12 POC Glucose 100 74 69 L 06/05/19 06/05/19 20:17 16:47 POC Glucose 106 111 H Medical Necessity - Tobacco Use Smoking Status: Never smoker Assessment/Plan All Active Problems (Last Reviewed 06/03/19 @ 04:14 by Garcia Maed MD) Hip pain (Acute) UTI (urinary tract infection) (Acute) Intractable pain (Acute) Accelerated hypertension (Acute) Extremity edema (Resolved) Hyperkalemia (Resolved) Hypertensive urgency, malignant (Resolved)
[2019-06-06] MEDS: SEVELAMER CARBONATE 800 MG TABLET PO (17:14)
--- NOTE | 2019-06-06 17:41 | PCM.PN.REN ---
Patient Problems: Active and Suspected Problems (Last Reviewed 06/03/19 @ 04:14 by Garcia Mead MD) Hip pain (Acute) UTI (urinary tract infection) (Acute) Intractable pain (Acute) Subjective: still with hip pain. BP elevated. Meds adjusted by primary service. Dialysis tomorrow - Physical Exam General: Alert Lungs: Clear to auscultation Cardiovascular: Regular rate Extremities: Edema - mild RLE Vital Signs Temp Pulse Resp BP Pulse Ox 98.9 F 87 16 144/82 H 100 06/06/19 15:52 06/06/19 15:52 06/06/19 15:52 06/06/19 15:52 06/06/19 15:52 Oxygen Delivery Method Room Air Weight: 67 kg Body Mass Index (BMI) 25.2 Finger Stick Blood Glucose 116 Intake and Output for Last 24 Hours 06/04/19 06/05/19 06/06/19 23:59 23:59 23:59 Intake Total 1190 / 1190 360 / 360 400 / 400 Output Total 250 / 250 6200 / 6200 Balance 940 / 940 -5840 / -5840 400 / 400 Microbiology Past 72 Hours 06/04/19 14:20 Urine Culture - Final Urine Catheter - Catheter Culture exhibits no growth. Laboratory Tests Past 24 Hrs 06/06/19 05:12 Sodium 133 L Potassium 3.3 L Chloride 95 L Carbon Dioxide 29.0 BUN 20 H Creatinine 3.48 H Estim Creat Clear Calc 17.44 Est GFR (MDRD) Af Amer 18 L Est GFR (MDRD) Non-Af 15 L BUN/Creatinine Ratio 5.7 L Glucose 107 H Calcium 8.3 L Phosphorus 2.4 L Albumin 2.3 L POC Glucose 06/06/19 06/06/19 06/06/19 07:48 06:28 04:00 POC Glucose 86 53 L 78 06/06/19 06/06/19 06/06/19 00:57 00:38 00:12 POC Glucose 100 74 69 L 06/05/19 20:17 POC Glucose 106 Medical Necessity - Tobacco Use Smoking Status: Never smoker Assessment/Plan All Active Problems (Last Reviewed 06/03/19 @ 04:14 by Garcia Mead MD) Hip pain (Acute) UTI (urinary tract infection) (Acute) Intractable pain (Acute) Accelerated hypertension (Acute) Extremity edema (Resolved) Hyperkalemia (Resolved) Hypertensive urgency, malignant (Resolved) 1. ESRD hemodialysis Fridays. Dialysis tomorrow 2. Anemia SHAUN therapy on dialysis 3. DM type II primary service management 4. Hypertension monitor, adjust as needed 5. hypophos decrease binders, adjust when appetite improves
--- NOTE | 2019-06-06 18:00 | PN_ITS ---
Patient Problems: Active and Suspected Problems (Last Reviewed 06/03/19 @ 04:14 by Garcia Mead MD) Hip pain (Acute) UTI (urinary tract infection) (Acute) Intractable pain (Acute) Subjective: All events of the past 24 hours of been reviewed. She continues to be afebrile. BP's are markedly elevated in the sales and marketing associate hours and look better in the afternoon. Blood pressures this morning ranged from 187/102-190 2/123 and the current blood pressure is 144/82. She is 100% saturated on room air. Oral intake on 06/05/2019 and 06/06/2019 has been poor. She did have a large bowel movement today. She is incontinent of urine. Sodium was low at 133 and the potassium is 3.3 today. BUN is 20 with a creatinine of 3.48. Phosphorus is low at 2.[address] Ambriz has decreased the phosphate binders. Calcium corrected for albumin is within normal limits. blood sugar was 53 this AM and she has not been eating. she is complaining of abdominal pain and nausea with decreased appetite a CT scan of the abd and the pelvis done in September of 2018 showed fatty infiltration of the liver with a normal gallbladder and normal extrahepatic biliary system. There was diffuse atrophy of the pancreas. No reports of endoscopy in the past when I reviewed old records. not seen by PT yet today...no note. On 06/05/2019 she refused to ambulate. - Physical Exam General: No apparent distress, Lethargic, - - lying in bed...did get up once today to use the bedside commode.....urinates in the diaper. HEENT: Atraumatic, Normocephalic Neck: Supple, No JVD, No Nodes, Trachea Midline Lungs: Clear to auscultation, Diminished - poor inspiratory effort Cardiovascular: Regular rate, Regular Rhythm, Normal S1, Normal S2, No rub noted, No Gallop Abdomen: Bowel Sounds Present, Soft, Non Tender, Non-Distended, - - No guarding with palpation Extremities: No clubbing, No cyanosis, Edema - Mild edema of the right lower extremity-recent ultrasound negative for DVT Neurological: Cranial nerves II-XII grossly intact, Neuro grossly intact Psych/Mental Status: Flat Affect Vital Signs Temp Pulse Resp BP Pulse Ox 98.9 F 87 16 144/82 H 100 06/06/19 15:52 06/06/19 15:52 06/06/19 15:52 06/06/19 15:52 06/06/19 15:52 Oxygen Delivery Method Room Air Weight: 147 lb 11.355 oz Body Mass Index (BMI) 25.2 Finger Stick Blood Glucose 116 Intake and Output for Last 24 Hours 06/04/19 06/05/19 06/06/19 23:59 23:59 23:59 Intake Total 1190 / 1190 360 / 360 400 / 400 Output Total 250 / 250 6200 / 6200 Balance 940 / 940 -5840 / -5840 400 / 400 Microbiology Past 72 Hours 06/04/19 14:20 Urine Culture - Final Urine Catheter - Catheter Culture exhibits no growth. Laboratory Tests Past 24 Hrs 06/06/19 05:12 Sodium 133 L Potassium 3.3 L Chloride 95 L Carbon Dioxide 29.0 BUN 20 H Creatinine 3.48 H Estim Creat Clear Calc 17.44 Est GFR (MDRD) Af Amer 18 L Est GFR (MDRD) Non-Af 15 L BUN/Creatinine Ratio 5.7 L Glucose 107 H Calcium 8.3 L Phosphorus 2.4 L Albumin 2.3 L POC Glucose 06/06/19 06/06/19 06/06/19 07:48 06:28 04:00 POC Glucose 86 53 L 78 06/06/19 06/06/19 06/06/19 00:57 00:38 00:12 POC Glucose 100 74 69 L 06/05/19 20:17 POC Glucose 106 Medical Necessity - Tobacco Use Smoking Status: Never smoker Assessment/Plan All Active Problems (Last Reviewed 06/03/19 @ 04:14 by Garcia Mead MD) Hip pain (Acute) UTI (urinary tract infection) (Acute) Intractable pain (Acute) Accelerated hypertension (Acute) Extremity edema (Resolved) Hyperkalemia (Resolved) Hypertensive urgency, malignant (Resolved) Rocephin day #2 Impressions 1. RLE pain - recent R hip replacement following a dislocation of the R hip after sliding off a chair onto the floor. continue the current pain medication. 2. UTI - ruled out. Urine culture had no growth. Ceftriaxone discontinued 06/06/2019 3. Nausea/vomiting /abdominal pain and Hypoglycemia on NO hypoglycemic agents. these SE's can be seen with Cevimeline which she takes TID for dry mouth but, this was discontinued at admission because it is not on formulary and the sx have persisted. They could also be due to Duloxetine. She is on a big dose and this medication should be avoided in patient's with ESRD according to the product circular. She is on in excess of 20 medications chronically.......We are not going to be able to resolve this problem in the hospital and she will need to work with Dr. Bowen to DC meds one at a time to see what helps and what works. Many of these medications have similar SE's and there are also drug interactions to worry about. Will discuss with the Pharm D tomorrow and DC what is not absolutely necessary.......need to wean the Duloxetine 4. End-stage renal disease on hemodialysis-dialysis on a Wednesday schedule 5. Chronic conditions include hypertension/anxiety/depression/SLE/chronic prednisone use/chronic debility with recurrent falls at the long-term, anemia of chronic renal failure. 6. DVT prophylaxis with heparin, SCDs and PIOTR hose Decrease the Cymbalta to 60 mg daily Cortrosyn stim test Coreg increased to 25mg Q 8 H DC the PRN clonidine and start Catapres TTS 2 - if this is not effective may need to split the Procardia dose to BID....may be seeing end of dose failure. PRN Hydralazine IV q 4 h PRN Code Visit Inpatient E&M: 94420 Subs Hosp L2
[2019-06-06 20:22] VITALS: BP 177/98; PULSE 83; RESP 16; TEMP 36.7; O2SAT 99
[2019-06-06] MEDS: MELATONIN 10 MG TABLET 5 MG PO (21:57)
[2019-06-06] MEDS: Atorvastatin Calcium 20 MG Tablet PO (21:57)
[2019-06-06 22:51] LABS: Bedside Glucose 74 mg/dL (70-110)
[2019-06-06 22:51] LABS: Bedside Glucose 111 mg/dL (70-110)
[2019-06-07] MEDS: Montelukast 10 MG Tablet PO (00:45)
[2019-06-07] MEDS: oxyCODONE 5 MG Tablet PO ×3 (00:52→18:09)
[2019-06-07 02:05] VITALS: BP 158/77; PULSE 88; RESP 18; TEMP 36.7; O2SAT 96
[2019-06-07 02:36] LABS: Bedside Glucose 130 mg/dL (70-110)
[2019-06-07 02:46] LABS: Bedside Glucose 127 mg/dL (70-110)
[2019-06-07 04:25] LABS: Bedside Glucose 93 mg/dL (70-110)
[2019-06-07] MEDS: Ondansetron 4 MG/2 ML Vial IV ×2 (05:34→13:30)
[2019-06-07] MEDS: Heparin Injection (Vial) 5,000 UNIT/ML VIAL 5000 UNIT SC ×2 (05:48→18:01)
[2019-06-07] MEDS: Metoclopramide 5 MG TABLET PO ×3 (05:53→17:59)
[2019-06-07 08:00] VITALS: BP 197/116; PULSE 87; RESP 18; TEMP 36.7; O2SAT 96
[2019-06-07 08:41] LABS: Bedside Glucose 72 mg/dL (70-110)
[2019-06-07] MEDS: Hydroxychloroquine 200 MG Tablet PO ×2 (08:41→18:00)
[2019-06-07] MEDS: SEVELAMER CARBONATE 800 MG TABLET PO ×3 (08:41→17:59)
[2019-06-07] MEDS: Menthol/Lanolin/Calamine/Znox 113 GM Tube 1 APPLIC TOPICAL (08:42)
[2019-06-07] MEDS: Fluticasone 0.05% 1 SPRAY NASAL.SRY 2 SPRAY NASAL (08:42)
[2019-06-07] MEDS: predniSONE 5 MG Tablet PO (08:42)
[2019-06-07] MEDS: DULoxetine Hcl 60 MG Capsule PO (08:43)
[2019-06-07] MEDS: Lidocaine 5% Patch 2 PATCH TOPICAL (08:43)
[2019-06-07] MEDS: NIFEdipine 90 MG Tablet PO (08:44)
[2019-06-07] MEDS: Famotidine 20 MG Tablet 40 MG PO (08:44)
[2019-06-07] MEDS: Senna Tablet 1 TABLET PO (08:45)
[2019-06-07 08:51] VITALS: BP 197/116; PULSE 94
[2019-06-07] MEDS: hydrALAZINE 20 MG/ML Vial IV (08:51)
[2019-06-07] MEDS: Acetaminophen 500 MG Tablet 1000 MG PO (08:52)
[2019-06-07] MEDS: clonazePAM 1 MG Tablet PO (08:52)
--- NOTE | 2019-06-07 12:26 | CASEMGMT ---
LW/POA forms not on file. SW let pt know, she is aware. She is not able to get the forms at this time, as pt was at [facility] and is going back to [place]. HUDSON Rodriguez
--- NOTE | 2019-06-07 12:28 | CASEMGMT ---
SW spoke w/pt in room, offered support. Pt states she is feeling hopeless. SW asked pt about counseling, pt states she does see Dr. Aranda but has missed appointments due to being in the hospital. Pt spoke about her experience at [facility] and that she is nervous to go to [facility]. SW gave support to pt. SW explained will ask about a psychologist/psychiatrist seeing pt at [facility], and also ask the SW to see her more often. Pt in agreement with this. SW asked physician to add to discharge paperwork for pt to see psychologist/psychiatrist at [facility]. SW also called [facility], spoke w/Amber, let her know that this will be on paperwork. SW also asked for SW at [facility] to follow up w/her more often as able for support to pt. HUDSON Rodriguez
[2019-06-07] MEDS: Nepro Liquid 120 ML LIQUID PO ×2 (12:29→17:58)
--- NOTE | 2019-06-07 13:00 | CASEMGMT ---
Martha had shared with LISSA she has a shoe caser through her insurance, Ronen Adams([phone]). DION called Ronen and left a message for her to let her know pt is going to [facility], and to call DION back if needed. DION also called [facility] again, spoke w/Wilman, and passed on Ronen's name and number. HUDSON Rodriguez
--- NOTE | 2019-06-07 14:00 | PCM.PN.REN ---
Patient Problems: Active and Suspected Problems (Last Reviewed 06/03/19 @ 04:14 by Garcia Mead MD) Hip pain (Acute) UTI (urinary tract infection) (Acute) Intractable pain (Acute) Subjective: undergoing dialysis. Attempt fluid removal as tolerated with guidance of crit line. - Physical Exam General: Alert, Oriented x3, - - edematous Lungs: Clear to auscultation Cardiovascular: Regular rate Extremities: Edema Vital Signs Temp Pulse Resp BP Pulse Ox 98.1 F 94 18 197/116 H 96 06/07/19 02:05 06/07/19 08:51 06/07/19 02:05 06/07/19 08:51 06/07/19 02:05 Oxygen Delivery Method Room Air Weight: 67 kg Body Mass Index (BMI) 25.2 Finger Stick Blood Glucose 116 Intake and Output for Last 24 Hours 06/05/19 06/06/19 06/07/19 23:59 23:59 23:59 Intake Total 360 / 360 401 / 961 760 / 760 Output Total 6200 / 6200 250 / 250 Balance -5840 / -5840 401 / 861 510 / 510 Microbiology Past 72 Hours 06/04/19 14:20 Urine Culture - Final Urine Catheter - Catheter Culture exhibits no growth. Laboratory Tests Past 24 Hrs 06/06/19 06/06/19 06/06/19 18:42 20:46 21:22 Cortisol 9.30 18.40 24.20 H POC Glucose 06/07/19 06/07/19 06/07/19 08:34 04:15 01:07 POC Glucose 72 93 127 H 06/06/19 06/06/19 06/06/19 22:15 20:46 17:41 POC Glucose 111 H 74 130 H Medical Necessity - Tobacco Use Smoking Status: Never smoker Assessment/Plan All Active Problems (Last Reviewed 06/03/19 @ 04:14 by Garcia Mead MD) Hip pain (Acute) UTI (urinary tract infection) (Acute) Intractable pain (Acute) Accelerated hypertension (Acute) Extremity edema (Resolved) Hyperkalemia (Resolved) Hypertensive urgency, malignant (Resolved) 1. ESRD hemodialysis today. fluid removal as tolerated 2. Anemia SHAUN therapy on dialysis 3. DM type II primary service management 4. Hypertension monitor, challenge fluid removal as sneha 5. hypophos decrease binders, adjust when appetite improves
--- NOTE | 2019-06-07 14:09 | CASEMGMT ---
Addendum entered by Agata Torres 06/07/19 14:11: SW did write on pt's green sheet to have staff call pt's friend Mallory Mathis when pt is being discharged. Original Note: Social Work Note Pt is discharging to [facility] today skilled after pt has dialysis. SW placed a call to Mariella at [facility] and updated her that pt will be discharged today after dialysis. SW placed green sheet, transportation form and HENS on pt's chart. SW placed Palliative Care Screening tool in pt's SNF and informed Mariella at [facility] to follow up with pt and Palliative Care once pt is at SNF. Plan: Discharge to [facility] today once pt has dialysis Agata Torres GRAIN COMMODITY MANAGER, SLUG PRESS OPERATOR
[2019-06-07 14:34] VITALS: BP 150/74; PULSE 88; RESP 16; TEMP 36.7; O2SAT 98
--- NOTE | 2019-06-07 14:42 | CHAPLAIN ---
Type of Pastoral Visit ___ Initial Visit _x__ Follow-up Visit ___ On-call Visit ___ General Patient Visit ___ Spiritual Assessment ___ Family Conference ___ Bereavement ___ Rapid Response ___ Code Blue ___ Other (describe below) Pastoral Care Referral From _x__ Patient ___ Family ___ Nurse _x__ Physician ___ First Front Ventilator ___ Director Style ___ Other (describe below) Sacrament/Intervention ___ Active listening ___ Anointing ___ Christianity ___ Bereavement ___ Communion ___ Cornelia exploration ___ ___ Life review _x__ Prayer ___ Reconciliation ___ Sacrament of Sick _x__ Supportive presence ___ Wedding ___ Other (describe below) Pastoral Comments patient requested visit by this power brake operator; pt is having dialysis at time of visit but she requests this power brake operator to stay and read to her again from the scriptures; sat with pt and read to her; box lining machine operator is also in room; pt is calm during the visit and listens to readings
[2019-06-07 16:00] VITALS: BP 144/71; PULSE 99; RESP 20; TEMP 36.6
--- NOTE | 2019-06-07 16:34 | DIALYSIS ---
Pt tolerated 3hr HD tx well. Net UF -2700ml. See flow record for tx data.
[2019-06-07 17:06] LABS: Bedside Glucose 108 mg/dL (70-110)
--- NOTE | 2019-06-07 17:07 | PCM.TXEXTCAR ---
- Diet 06/07/19 12:07 Diet: Regular Diet Food consistency:: Regular Liquid Consistency:: Regular/Thin Is pt able to select menu?: No Diet Comments: low potassium diet, low sodium diet - Routine Orders/Code Status Enema Type: Fleetz Enema Frequency: Daily PRN Suppository Type: Dulcolax 10mg Suppository Frequency: Daily PRN O2 Liters per Minute: 1-2 O2 Frequency: PRN Keep PO Greater than or Equal to (%): 90 Code Status: Full Code - Wound(s) left inner green Wound Type: Abrasion Right hip Wound Type: Surgical Incision - Suggestions for Active Care Times a day to sit in chair: 3 - with all meals - Therapies Weight Bearing: Posterior hip precautions on the right Extremity Affected:: Right Lower Physical Therapy: Eval and Treat Occupational Therapy: Eval and Treat - Problem/Diagnosis (1) Hip pain Status: Acute Comment: right - following recent R hip replacement Current Visit: Yes (2) UTI (urinary tract infection) Status: Ruled-out Current Visit: Yes (3) Hip dislocation, right Status: Inactive Comment: reduced in the ED by Dr. Thao Current Visit: No (4) Prolonged QT interval Status: Chronic Current Visit: No (5) Presence of surgically created arteriovenous shunt for hemodialysis Status: Chronic Current Visit: No (6) Status post insertion of dialysis catheter Status: Chronic Current Visit: No (7) Altered mental status Status: Resolved Comment: due to sedation from Propofol used to reduce the R hip dislocation in the ED Current Visit: No (8) Uncontrolled hypertension Status: Chronic Current Visit: No (9) ESRD (end stage renal disease) on dialysis Status: Chronic Current Visit: No (10) Chronic diarrhea Status: Resolved Comment: she is now on stool softeners Current Visit: No (11) Nonrheumatic mitral (valve) insufficiency Status: Chronic Comment: this was not mentioned on an ECH done in January of 2018 Current Visit: No (12) Secondary pulmonary arterial hypertension Status: Chronic Comment: PA systolic estimated at 31 mmHg in January 2018, down from 50 in the past. Current Visit: No (13) Non-rheumatic tricuspid valve insufficiency Status: Chronic Comment: Trivial on echocardiogram done in January 2018 Current Visit: No (14) Narcolepsy Status: Chronic Current Visit: No (15) Lupus nephritis Status: Chronic Comment: Status post kidney and liver biopsy (fatty liver) -now with end-stage renal disease on hemodialysis Current Visit: No (16) Degenerative disc disease, cervical Status: Chronic Current Visit: No (17) Cervical spondylosis Status: Chronic Current Visit: No (18) Diabetes mellitus, type II Status: Chronic Comment: no longer requiring any medications Current Visit: No (19) SLE (systemic lupus erythematosus) Status: Chronic Current Visit: No (20) Anemia of chronic renal failure, stage 5 Status: Chronic Current Visit: Yes (21) Anxiety and depression Status: Chronic Current Visit: Yes (22) Chronic prescription benzodiazepine use Status: Chronic Current Visit: Yes (23) Hypophosphatemia Status: Acute Current Visit: Yes (24) Chronic steroid use Status: Chronic Comment: for SLE Current Visit: Yes (25) Hypoglycemia Status: Chronic Comment: ocassional - suspect related to poor apetite and intake and also to some of her medications. Cevimeline has been discntinued because of this Current Visit: Yes (26) Allergic rhinitis Status: Chronic Current Visit: Yes - Allergies/Procedures Done in Hospital Allergies/Adverse Reactions: Allergies LONG Inhibitors Allergy (Verified 06/02/19 20:56) Angioedema adhesive Allergy (Verified 06/02/19 20:56) Rash diphenhydramine Allergy (Verified 06/03/19 03:13) Unknown lisinopril Allergy (Verified 06/02/19 20:56) Angioedema Sulfa (Sulfonamide Antibiotics) Allergy (Verified 06/02/19 20:56) Rash sulfamethoxazole [From Bactrim] Allergy (Verified 06/02/19 20:56) Rash trimethoprim [From Bactrim] Allergy (Verified 06/02/19 20:56) Rash tuberculin, purified protein deriva Allergy (Verified 06/03/19 03:13) Unknown Angioderm Adverse Reaction (Unknown, Uncoded 06/02/19 20:56) Unknown Procedures: - - Venous ultrasound of the right lower extremity was negative for DVT - Type of Care/Length of Stay Estimated LOS: Convalescent Care Less Than 30 days Type of Care Needed: Skilled Rehab Potential: Good Prognosis: Good - Additional Orders/Day of Discharge Additional Orders: She is very depressed and also afraid and anxious. She should be seen by a psychologist or psychiatrist for counselling and to manage the psych meds. Duloxetine should be weaned off since it is cntraindicated in ESRD H&P will serve as current which was dated: 06/03/19 Day of Discharge: 06/07/19 - Dietary and Speech Recommendations Dietitian Recommendations/Changes: 1.) Pt on chronic HD---protein restriction not appropriate so, suggest low sodium/low potassium diet as indicated if PO improves at meals. 2.) Recommend discontinue transitional diet at this time; liberalize diet to help optimize PO at meals. 3.) Continue Nepro CarbSteady 120 mL 4x/day. - Follow Up Care Primary Care Physician: Mitchell Bowen Chi, MD [Primary Care Provider] - 3-5 Days Please follow up with your Primary Care Physician in: following DC from detention Please Follow Up With: counselling center
--- NOTE | 2019-06-07 17:28 | PCM.DC.SUM ---
Discharge Date and Diagnosis - Problem List Patient Problems: Active and Suspected Problems (Last Reviewed 06/03/19 @ 04:14 by Garcia Mead MD) Hip pain (Acute) right - following recent R hip replacement Hypophosphatemia (Acute) Date of Admission: 06/03/19 Date of Discharge: 06/07/19 - Primary Discharge Diagnosis Active and Suspected Problems (Last Reviewed 06/03/19 @ 04:14 by Garcia Mead MD) Hip pain (Acute) right - following recent R hip replacement Hypophosphatemia (Acute) Hypokalemia Moderate malnutrition - Secondary Discharge Diagnosis Chronic Problems (Last Reviewed 06/03/19 @ 04:14 by Garcia Mead MD) Anemia of end-stage renal disease (Chronic) Anxiety and depression (Chronic) Chronic prescription benzodiazepine use (Chronic) Chronic steroid use (Chronic) for SLE Hypoglycemia (Chronic) occasional - suspect related to poor appetite and intake and also to some of her medications that are known to cause hypoglycemia. Cevimeline has been discontinued because of this Allergic rhinitis (Chronic) Prolonged QT interval (Chronic) Presence of surgically created arteriovenous shunt for hemodialysis (Chronic ~11/2017) Status post insertion of dialysis catheter (Chronic) Uncontrolled hypertension (Chronic) ESRD (end stage renal disease) on dialysis (Chronic) Nonrheumatic mitral (valve) insufficiency (Chronic) this was not mentioned on an ECHO done in January of 2018 Secondary pulmonary arterial hypertension (Chronic) PA systolic estimated at 31 mmHg in January 2018, down from 50 in the past. Non-rheumatic tricuspid valve insufficiency (Chronic) Trivial on echocardiogram done in January 2018 Narcolepsy (Chronic) Lupus nephritis (Chronic) Status post kidney and liver biopsy (fatty liver) -now with end-stage renal disease on hemodialysis Degenerative disc disease, cervical (Chronic) Cervical spondylosis (Chronic) Diabetes mellitus, type II (Chronic) no longer requiring any medications SLE (systemic lupus erythematosus) (Chronic) Polypharmacy - on multiple medications at inappropriate doses for a pt with ESRD on HD and having significant side effects Hospital Course and Treatment Imaging Results: Clinical Impression(s) from Imaging Studies Hip/Pelvis X-Ray 06/02/19 22:00 IMPRESSION: New right acetabular component right total hip prosthesis the acetabular component now screwed in place. No evidence of malalignment, fracture, or loosening. at 2236 Reported and signed by: Adair Evangelista MD Electronically Signed: Adair Evangelista MD at 22:34 EDT Tel , Service support , Laboratory Results - last 24 hr 06/06/19 06/06/19 06/06/19 17:41 18:42 20:46 Cortisol 9.30 18.40 POC Glucose 130 H 06/06/19 06/06/19 06/06/19 20:46 21:22 22:15 Cortisol 24.20 H POC Glucose 74 111 H 06/07/19 06/07/19 06/07/19 01:07 04:15 08:34 Cortisol POC Glucose 127 H 93 72 06/07/19 17:00 Cortisol POC Glucose 108 Microbiology 06/04/19 14:20 Urine Catheter - Catheter Urine Culture - Final Culture exhibits no growth. none Operations: None Procedures: - - RLE venous US - negative for DVT Summary of Care Provided: Ms. Plummer is a 48-year-old female with a history of end-stage renal disease on hemodialysis due to lupus nephritis, hypertension, chronic steroid therapy on prednisone 5 mg daily, chronic diarrhea ( but on stool softeners?), pulmonary hypertension, chronic anemia, narcolepsy, cervical spondylosis, diabetes mellitus type 2(no longer requiring medication), QT prolongation and SLE who presented to the ED on 06/03/2019 complaining of severe right hip pain, dysuria and increased frequency of urination. She was sent to the ED from [facility] and she was very unhappy about the care she was receiving at [facility]. On 04/18/2019 she had a right hip dislocation after sliding out of her chair at home. She had closed reduction of the dislocation by Dr. Thao in the emergency department and was admitted postprocedure for lethargy due to the prolonged effects of Propofol. She was discharged to correction later that same day after the sedation wore off. She again presented to the emergency department on 04/30/2019 complaining of right hip pain and had markedly elevated blood pressure at 234/107. She was admitted for blood pressure control. Coreg was increased to 25 mg twice daily. She was discharged on 05/01/2019. She subsequently had a R hip replacement and went back to correction at [facility] post-op. At the time of admission on 06/03/2019 she was taking oxycodone 5 mg p.o. 3 times daily and 1000 mg of acetaminophen 3 times daily for pain control. Doppler ultrasound of the right lower extremity revealed no evidence of DVT. She was afebrile for the duration of the hospital stay. White blood cell count was within normal limits. Urine culture had no growth. Hemoglobin was stable at 9.9. She had multiple somatic complaints while in the hospital and these include but are not limited to lightheadedness, nausea, decreased appetite, low blood sugars, weakness, dysuria, anxiety and fear about going back to [facility]. a cortrosyn stim test was done since she is chronically on prednisone 5 mg p.o. daily and the baseline cortisol was 9.3 with an increase to 18.4 30 minutes after 250 mcg of Cortrosyn. This is an appropriate response and her adrenal gland is functional. She had a low phosphorous in the hospital and Sevalemer was decreased. She also had a low potassium and it was supplemented. She is fixated on having low blood sugars but, she had one fasting BS of 53 and the remainder of the blood sugars were all greater than 65. Her appetite is poor and so is the intake. She was seen by the dietitian while in the hospital and was diagnosed with moderate malnutrition. A thorough review of her medications revealed her to be on several medications at inappropriate dosages for a pt with CRF on HD. Duloxetine should be avoided per the product circular in patients with a CREAT CL < 30 and she is taking a very high dose at 120 mg daily. This medication must be weaned and the dose was decreased to 60 mg daily. It should be decreased to 30 mg daily in the next 2 weeks and then further decreased to 20 mg daily for 7 to 14 days and then discontinued. She is taking Reglan 5 mg 3 times daily and the maximum dose in patients on hemodialysis is 5 mg twice daily. She is also taking famotidine 40 mg twice daily and the recommended dose is 20 mg every other day with end-stage renal disease on hemodialysis or 10 mg daily. Cevimeline can cause hypoglycemia and this was discontinued. If she needs something for dry mouth I would try Biotene mouthwash or spray. she is on Klonopin for anxiety and takes 1 mg BID. Duloxetine can cause anxiety and in the future she could be weaned off Klonopin because it is a very sedating medication and she came to the hospital because she slid out of her chair. BP medications were adjusted in the hospital to get better control of the blood pressure. It is better at DC but will need fine tuning going forward. I suspect the anxiety is contributing to the spikes in BP. I recommend that she be seen by the psychotherapist at [facility] for counselling. she missed an appt at the counselling center with Dr. Mclean because she was in the hospital....this should be rescheduled. She needs a lot of encouragement to do PT. Will need to adhere to the recommendations for patients with posterior hip replacements for at least 3 months. General: No apparent distress, Lethargic, depressed. sitting on the EOB with good tolerance for at least 15 minutes while talking with me HEENT: Atraumatic, Normocephalic Neck: Supple, No JVD, No Nodes, Trachea Midline Lungs: Clear to auscultation, Diminished - poor inspiratory effort Cardiovascular: Regular rate, Regular Rhythm, Normal S1, Normal S2, No rub noted, No Gallop Abdomen: Bowel Sounds Present, Soft, Non Tender, Non-Distended, - - No guarding with palpation Extremities: No clubbing, No cyanosis, Edema - Mild edema of the right lower extremity-recent ultrasound negative for DVT Neurological: Cranial nerves II-XII grossly intact, Neuro grossly intact Psych/Mental Status: Flat Affect.......usually will not open her eyes when she is speaking to you. Made better eye contact just prior to DC. This note was generated with Cubby dictation software. It may contain incorrect words, spelling, and punctuation that were not noted in checking the note before signing. Patient Problems: Active and Suspected Problems (Last Reviewed 06/03/19 @ 04:14 by Garcia Mead MD) Hip pain (Acute) right - following recent R hip replacement Hypophosphatemia (Acute) - Physical Exam Vital Signs Temp Pulse Resp BP Pulse Ox 97.8 F 99 20 H 144/71 H 98 06/07/19 16:00 06/07/19 16:00 06/07/19 16:00 06/07/19 16:00 06/07/19 14:34 Oxygen Delivery Method Room Air Weight: 147 lb 11.355 oz Body Mass Index (BMI) 25.2 Finger Stick Blood Glucose 116 Intake and Output for Last 24 Hours 06/05/19 06/06/19 06/07/19 23:59 23:59 23:59 Intake Total 360 / 360 401 / 961 760 / 760 Output Total 6200 / 6200 2950 / 2950 Balance -5840 / -5840 401 / 861 -2190 / -2190 Microbiology Past 72 Hours 06/04/19 14:20 Urine Culture - Final Urine Catheter - Catheter Culture exhibits no growth. Laboratory Tests Past 24 Hrs 06/06/19 06/06/19 06/06/19 18:42 20:46 21:22 Cortisol 9.30 18.40 24.20 H POC Glucose 06/07/19 06/07/19 06/07/19 17:00 08:34 04:15 POC Glucose 108 72 93 06/07/19 06/06/19 06/06/19 01:07 22:15 20:46 POC Glucose 127 H 111 H 74 06/06/19 17:41 POC Glucose 130 H Home Medications: Medications to take at Discharge Hydroxychloroquine [Plaquenil] 200 mg PO BID 10/01/16 Sevelamer Carbonate [Renvela] 1,600 mg PO TID 08/12/18 Prednisone 5 mg PO DAILY 09/09/18 CycloSPORINE Ophthalmic [Restasis Ophthalmic] 1 drp EACH EYE BID 04/18/19 Dextroamphetamine/Amphetamine [Adderall 15 mg Tablet] 1 tab PO DAILY PRN 04/18/19 Docusate Sodium 100 mg PO BID PRN PRN 04/18/19 Ergocalciferol (Vitamin D2) [Vitamin D2] 50 mcg PO QMONTH 04/18/19 Montelukast [Singulair] 1 tab PO QHS 04/18/19 Nifedipine [Nifedipine ER] 90 mg PO DAILY 04/18/19 Ondansetron [Zofran Odt] 4 mg PO Q8H PRN PRN 04/18/19 Acetaminophen [Tylenol] 1,000 mg PO TID PRN 04/30/19 Fluticasone 0.05% [Flonase Nasal [place]] 2 spray NASAL BID 04/30/19 Atorvastatin Calcium [Lipitor] 20 mg PO QHS 06/02/19 Clonazepam [Klonopin] 1 mg PO BID 06/02/19 Darbepoetin Ganesh in Polysorbat [Aranesp] 40 mcg IJ TU 06/02/19 Folic Acid/Vitamin B Comp W-C [Nephrocaps, Renaphro] 1 cap PO DAILY 06/02/19 Heparin Sodium,Porcine [Heparin Sodium] 5,000 unit IJ TID 06/02/19 Lactobacillus Acidophilus [Acidophilus] 1 ea PO DAILY 06/02/19 Nut.tx.impaired Renal Fxn,Soy [Novasource Renal 2 Will] 237 ml PO BID 06/02/19 Sennosides [Senna] 8.6 mg PO BID 06/02/19 Vancomycin IV [Vancomycin] 500 mg IV [id number] 06/02/19 Carvedilol [Coreg (Beta Cirilo)] 25 mg PO Q8 tab 06/07/19 Clonidine Patch [Catapres-Tts2] 0.2 mg TRANSDERM. Q7D patch 06/07/19 Duloxetine Hcl [Cymbalta] 60 mg PO DAILY cap 06/07/19 Famotidine 10 mg PO DAILY #1 tab 06/07/19 Glucagon 1 mg IM .X1 PRN #1 syringe 06/07/19 Menthol/Lanolin/Calamine/Znox [Calmoseptine Ointment] 1 applic TOPICAL BID tube 06/07/19 Metoclopramide HCl [Reglan] 5 mg PO BID #0 06/07/19 Nepro Liquid [Nepro Carb Steady] 120 ml PO 4X/DAY liquid 06/07/19 Nystatin 500,000 unit PO 4X/DAY 14 Days #280 ml 06/07/19 Oxycodone [Oxyir] 5 mg PO Q6H PRN PRN 7 Days #14 tab 06/07/19 Sodium Chloride 0.65% [[place] Nasal [place]] 2 spray NASAL DAILY PRN PRN spray.btl 06/07/19 Following Prescrptions Were Given to Patient: Famotidine 10 mg PO DAILY #1 tab Transmission Status: Received by [facility] [id number] Nystatin 500,000 unit PO 4X/DAY 14 Days #280 ml Transmission Status: Received by [place] [id number] Oxycodone [Oxyir] 5 mg PO Q6H PRN PRN 7 Days #14 tab PRN Reason: Pain Primary Care Physician: Mitchell Bowen Chi, MD [Primary Care Provider] - 3-5 Days Please follow up with your Primary Care Physician in: following DC from correction Please Follow Up With: counselling center Patient Instructions: After Hip Replacement: Managing Your Pain Disposition: [facility] facility [facility] Minutes spent on discharge:: 50 Patient Condition:: Stable Medical Necessity - Tobacco Use Smoking Status: Never smoker Tobacco Use: Non-smoker Meaningful Use Info Meaningful Use Diagnoses (Choose all that apply): None applicable Code Visit Inpatient E&M: 52404 Disch Hosp
[2019-06-07] MEDS: Epoetin Alfa epbx 10,000 UNITS/ML 6000 UNIT IV (17:58)
[2019-06-07] MEDS: Carvedilol 25 MG Tablet PO (18:00)
[2019-06-07] MEDS: NYSTATIN 500,000 UNIT/5 ML UDC 500000 UNIT PO (18:09)
== END 2019-06-07 19:05 | disposition skilled nursing facility (03) | DRG 555 ==
LOC: ED 22:54 → MS3 06-03 01:08
PROVIDERS: Internal Medicine; Admitting Provider Hospitalist; Emergency Provider Emergency Medicine; Family Provider Family Medicine Geriatric Medicine; PCP Family Medicine Geriatric Medicine; Visit Provider Internal Medicine
DX: M25.551 Pain in right hip (principal); N18.6 End stage renal disease; E44.0 Moderate protein-calorie malnutrition; I12.0 Hypertensive chronic kidney disease with stage 5 chronic kidney disease or end stage renal disease; M32.9 Systemic lupus erythematosus, unspecified; E11.22 Type 2 diabetes mellitus with diabetic chronic kidney disease; Z99.2 Dependence on renal dialysis; R29.6 Repeated falls; E83.39 Other disorders of phosphorus metabolism; E87.6 Hypokalemia; Z79.52 Long term (current) use of systemic steroids; I27.21 Secondary pulmonary arterial hypertension; I36.1 Nonrheumatic tricuspid (valve) insufficiency; G47.419 Narcolepsy without cataplexy; Z96.641 Presence of right artificial hip joint; Z68.25 Body mass index [BMI] 25.0-25.9, adult
CPT/HCPCS: 36415; 73502; 80048; 80069; 80076; 80202; 81001; 82533; 82962; 85025; 85652; 86140; 87086; 90937; 93971; 97110; 97162; 97165; 97530; 97535; 97802; 99285; J7030; J7050; P9612; A4216; G0257; J0834; J2405; J3490; Q5106

== ENCOUNTER 2019-06-09 08:55 | Emergency (ER) | payer MEDICARE, MEDICAID, SELFPAY ==
[2019-06-03 02:06] VITALS: BMI 25.2
[2019-06-09 08:58] VITALS: BP 203/118; PULSE 100; RESP 13; TEMP 37.2; O2SAT 100; BMI 27.1
[2019-06-09 09:00] VITALS: BP 201/121
--- NOTE | 2019-06-09 09:12 | ED.DCSUM_ITS ---
History of Present Illness Onset: Yesterday Narrative: Patient presents to the ED with intermittent nausea and vomiting that started last night. She states that since onset, she has had approximately 5-6 episodes of emesis. About 3 weeks ago she did have orthopedic surgery done on her right hip. She states that she had an infection in this joint and then following the surgery dislocated multiple times and had to have a total hip revision. She has had some intermittent nausea since the procedure, however never this bad. Around 5 this morning she did take a Zofran however vomited about an hour after taking it. She only reports abdominal pain when she is vomiting. She does report some loose stool and feeling like she is going to wet her diaper. She is concerned she may have a UTI. She does have a history of end-stage renal disease and has dialysis on Wednesday, Wednesday, and Wednesday. She does still make urine. She does have a history of hypertension, however does not take her medications until after dialysis. <Kia Trevino - Last Filed: 06/09/19 11:58> <Cholo Guillaume - Last Filed: 06/09/19 12:49> Chief Complaint: Nausea/Vomiting Past Medical History Surgical History: - - failed AVF left arm, AVF right arm Smoking Status: Never smoker - Family History Maternal Family History: Family History (Last Reviewed 06/03/19 @ 04:14 by Garcia Mead MD) Mother Hypertension Kidney disease ALS (amyotrophic lateral sclerosis) Father Heart disease Hypertension Kidney disease Diabetes Family History: Reports: Diabetes, High Cholesterol, Heart Disease, Hypertension, Renal Disease, - Paternal Family History: Family History (Last Reviewed 06/03/19 @ 04:14 by Garcia Mead MD) Mother Hypertension Kidney disease ALS (amyotrophic lateral sclerosis) Father Heart disease Hypertension Kidney disease Diabetes Family History: Reports: Diabetes, High Cholesterol, Heart Disease, Hypertension, Renal Disease Sibling Family History: Family History (Last Reviewed 06/03/19 @ 04:14 by Garcia Mead MD) Mother Hypertension Kidney disease ALS (amyotrophic lateral sclerosis) Father Heart disease Hypertension Kidney disease Diabetes Family History: Reports: Diabetes <Kia Trevino - Last Filed: 06/09/19 11:58> - Family History Maternal Family History: Family History (Last Reviewed 06/03/19 @ 04:14 by Garcia Mead MD) Mother Hypertension Kidney disease ALS (amyotrophic lateral sclerosis) Father Heart disease Hypertension Kidney disease Diabetes Paternal Family History: Family History (Last Reviewed 06/03/19 @ 04:14 by Garcia Mead MD) Mother Hypertension Kidney disease ALS (amyotrophic lateral sclerosis) Father Heart disease Hypertension Kidney disease Diabetes Sibling Family History: Family History (Last Reviewed 06/03/19 @ 04:14 by Garcia Mead MD) Mother Hypertension Kidney disease ALS (amyotrophic lateral sclerosis) Father Heart disease Hypertension Kidney disease Diabetes <Cholo Guillaume - Last Filed: 06/09/19 12:49> - Allergies and Home Meds Allergies/Adverse Reactions: Allergies LONG Inhibitors Allergy (Verified 06/09/19 09:04) Angioedema adhesive Allergy (Verified 06/09/19 09:04) Rash diphenhydramine Allergy (Verified 06/09/19 09:04) Unknown lisinopril Allergy (Verified 06/09/19 09:04) Angioedema Sulfa (Sulfonamide Antibiotics) Allergy (Verified 06/09/19 09:04) Rash sulfamethoxazole [From Bactrim] Allergy (Verified 06/09/19 09:04) Rash trimethoprim [From Bactrim] Allergy (Verified 06/09/19 09:04) Rash tuberculin, purified protein deriva Allergy (Verified 06/09/19 09:04) Unknown Angioderm Adverse Reaction (Unknown, Uncoded 06/09/19 09:04) Unknown Primary Care Physician: Mitchell Bowen Chi, MD [Primary Care Provider] - Review of Systems General: Denies: Chills, Fever, Sweats Eyes: Denies: Visual changes - bilaterally, Diplopia ENT: Denies: Rhinorrhea, Sore throat Cardiovascular: Denies: Chest pain, Palpitations Respiratory: Denies: Dyspnea, Cough, Dyspnea on exertion Gastrointestinal: Reports: Abdominal pain - Only with emesis, Nausea, Vomiting. Denies: Diarrhea, Melena, Hematochezia Genitourinary: Reports: - - Judah urgency. Denies: Dysuria, Hematuria, Frequency Musculoskeletal: Reports: - - R Hip pain. Denies: Back pain, Extremity Pain Skin: Denies: Rash, Wounds Neurological: Denies: Headache, Weakness, Numbness <Kia Trevino - Last Filed: 06/09/19 11:58> Physical Exam Vital Signs/Narrative: Vital Signs Temp Pulse Resp BP Pulse Ox 06/09/19 09:00 201/121 H 06/09/19 08:58 98.9 F 100 13 203/118 H 100 General: Well nourished, Well developed, No Acute Distress Head: Normocephalic, Atraumatic Eyes: Perrl, EOMI ENT: Moist mucous membranes, No rhinorrhea Neck: Supple, Nontender Cardiovascular: Regular rate, Regular rhythm, No murmurs Respiratory: No distress, CTA bilaterally, Chest nontender Abdomen: Soft, Nondistended, Normal bowel sounds, Tender - Generalized. Negative for: Guarding, Rebound tenderness Back: Nontender, Normal Inspection Extremities: Nontender, No edema Skin: Normal color, No rash Neurological: Alert, Oriented x3, Cranial nerves II-XII grossly intact, Normal S trength, Normal Sensation Psychological: Normal affect, Normal Mood <Kia Trevino - Last Filed: 06/09/19 11:58> Vital Signs/Narrative: Vital Signs Temp Pulse Resp BP Pulse Ox 06/09/19 11:00 67 18 198/98 H 99 06/09/19 09:00 201/121 H 06/09/19 08:58 98.9 F 100 13 203/118 H 100 <Cholo Guillaume - Last Filed: 06/09/19 12:49> Diagnostic/Tx/Re-eval - Medical Decision Making Patient presents to the ED with nausea and vomiting that started yesterday. This does appear to be a chronic issue for her. They were given Zofran at shelter facility, however it did not alleviate her symptoms. She is not hypertensive here, however she typically receives her antihypertensives after dialysis which is scheduled later today. We do feel the patient's symptoms are due to medication side effect. We will switch her antifungal to Diflucan for the next 7 days. She also request a prescription for Lidoderm patches as it did help her hip pain following her procedure. She will be discharged in stable condition to go to dialysis. She is educated on signs/symptoms to return to the ED. She was agreeable to plan. Impression: Nausea and vomiting. Yeast infection. Medication side effect. Disposition: Dialysis, stable. <Kia Trevino - Last Filed: 06/09/19 11:58> - Medical Decision Making The patient was seen and evaluated. This does seem to be more an exacerbation o f her chronic symptoms. She had no further vomiting. Actually discussed her care with the hospitalist who took care of her when she was admitted. The suspicion is that this is likely secondary to her medication. They are going to change her antifungal. She will be discharged to dialysis. <Cholo Guillaume - Last Filed: 06/09/19 12:49> ED Disposition <Kia Trevino - Last Filed: 06/09/19 11:58> <Cholo Guillaume - Last Filed: 06/09/19 12:49> - Plan for ED Patient: Disposition: Home or Assisted Living Diagnosis: Nausea & vomiting, Yeast cystitis Instructions: VOMITING (8y-Adult) Prescriptions: Fluconazole [Diflucan] 100 mg PO DAILY #7 tab Prescription Printed Lidocaine [Lidoderm Patch] 1 patch TOPICAL DAILY #30 patch Prescription Printed Referrals: Mitchell Bowen Chi, MD [Primary Care Provider] -
[2019-06-09] MEDS: Ondansetron 4 MG/2 ML Vial IV (10:03)
[2019-06-09 10:37] LABS: Bacteria 0 SEEN /hpf (None Seen); Mucous, Urine 0 SEEN /hpf (<or=2+); White Blood Cells 0 SEEN /hpf (0-5)
[2019-06-09 10:42] LABS: Color, Urine Yellow (Yellow); Glucose, Dipstick Normal (Normal); Ketone-Dipstick Negative (Negative); Leukocyte Esterase-Dipstick Negative /ul (Negative); Nitrite-Dipstick Negative (Negative); Occult Blood-Urine 25 /ul (Negative); Protein-Dipstick 100 mg/dl (Negative); Urine Bilirubin Dipstick Negative (Negative); Urine Clarity Sl. Cloudy (Clear); Urine Urobilinogen Normal (Normal)
[2019-06-09] MEDS: Morphine 4 MG/ML Syringe IV (10:47)
[2019-06-09 10:48] LABS: Amorphous Sediment 1+ PHOS; Red Blood Cells-Urine 0-5 SEEN /hpf (0-5); Squamous Epithelial Cells - UA 0-5 SEEN /hpf (5-10)
[2019-06-09 11:00] VITALS: BP 198/98; PULSE 67; RESP 18; O2SAT 99
--- NOTE | 2019-06-09 11:19 | NURSING ---
PER LAB, THEIR BLOOD WAS TOO SHORT, THEY HAD 2 PEOPLE DRAW HER AND THEY ARE UNABLE TO OBTAIN BLOEFREN
--- NOTE | 2019-06-09 11:39 | ED.RN ---
Dr Guillaume aware of persistent high bp. Pt does not take meds until after dialysis. Pt is being transferred to dialysis now.
[2019-06-09] MEDS: proMETHazine 25 MG/ML Syringe 6.25 MG IV (11:50)
[2019-06-09 12:06] VITALS: BP 198/98; PULSE 72; RESP 18; O2SAT 99
== END 2019-06-09 12:19 | disposition home or self-care (01) ==
PROVIDERS: Emergency Provider Physician Assistant; Family Provider Family Medicine Geriatric Medicine; PCP Family Medicine Geriatric Medicine
DX: R11.2 Nausea with vomiting, unspecified (principal); B37.41 Candidal cystitis and urethritis; I12.0 Hypertensive chronic kidney disease with stage 5 chronic kidney disease or end stage renal disease; N18.6 End stage renal disease; Z82.49 Family history of ischemic heart disease and other diseases of the circulatory system; Z88.1 Allergy status to other antibiotic agents; Z88.2 Allergy status to sulfonamides; Z88.8 Allergy status to other drugs, medicaments and biological substances; Z99.2 Dependence on renal dialysis
CPT/HCPCS: 81001; 87086; 96374; 96375; 99285; J7030; A4216; J2405

== ENCOUNTER → 2019-07-27 15:12 | Outpatient (CLI) | payer MEDICARE, MEDICAID, SELFPAY ==
[2019-07-27 16:38] LABS: Basophil# 0.05 X10^3/uL; Basophil% 0.5 % (0-1); Eosinophil# 0.01 X10^3/uL; Eosinophils% 0.1 % (0-5); Hematocrit 36.7 % (37-47); Hemoglobin 11.3 g/dL (12.0-15.0); Lymphocyte % 9.1 % (19-41); Mean Corp Hgb Conc 30.8 g/dL (32-36); Mean Corpuscular Hgb 29.6 pg (27.0-32.0); Mean Corpuscular Volume 96.1 fL (81-99); Mean Platelet Vol. 9.7 fl (6.2-12.0); Monocyte# 0.82 X10^3/uL; Monocyte% 7.5 % (0-10); NRBC Flagged by Analyzer 0 % (0-5); Neutrophil # 9.04 X10^3/uL (2.7-7.7); Neutrophil % 82.4 % (47-70); POSITIVE MORPHOLOGY YES; Platelet Count 230 K/mm3 (150-450); RBC Distribution Width CV 17.7 % (11.6-14.6); RBC Distribution Width SD 62.7 fl (35.1-43.9); Red Blood Count 3.82 M/mm3 (4.2-5.4)
[2019-07-27 16:40] LABS: Differential Indicated SCAN CRITERIA MET
[2019-07-27 17:00] LABS: Differential Comment SCANNED
[2019-07-27 17:06] LABS: Vitamin D,25 Hydroxy 38.6 ng/mL (29.95-100.01)
[2019-07-27 17:07] LABS: ALB/GLOB Ratio 0.7 RATIO (0.9-2.4); AST(SGOT) 44 U/L (15-37); Alanine Aminotransfer ALT/SGPT 30 U/L (13-56); Albumin, Serum 3.3 g/dL (3.2-5.0); Alkaline Phosphatase 135 U/L (45-117); Anion Gap 9 (5-15); BUN 31 mg/dL (7-18); BUN/Creat Ratio 5.5 RATIO (10-20); Calcium,Total 9.4 mg/dL (8.5-10.1); Chloride 99 mmol/L (98-107); Creatinine, Serum 5.61 mg/dL (0.55-1.02); EST Glomerular Filtration Rate 9 mL/min (>60); Est Glom Filt Rate - Afr Amer 10 mL/min (>60); Globulin 4.9 g/dL (2.2-4.2); Glucose 93 mg/dL (74-106); Potassium 4.2 mmol/L (3.5-5.1); Protein, Total 8.2 g/dL (6.4-8.2); Sodium Level 136 mmol/L (136-145); Thyroid Stim Hormone (TSH) 3.32 uIU/mL (0.358-3.74)
== END ==
PROVIDERS: Family Provider Family Medicine Geriatric Medicine; PCP Family Medicine Geriatric Medicine; Visit Provider Family Medicine Geriatric Medicine
DX: E11.9 Type 2 diabetes mellitus without complications (principal); E55.9 Vitamin D deficiency, unspecified; I10 Essential (primary) hypertension
CPT/HCPCS: 36415; 80053; 82306; 84443; 85025

== ENCOUNTER → 2019-09-14 15:40 | Outpatient (CLI) | payer MEDICARE, MEDICAID, SELFPAY ==
--- NOTE | 2019-09-14 15:44 | BI_ITS ---
MAMMOGRAPHY - BILATERAL SCREENING 3-D TOMOSYNTHESIS REASON FOR EXAM: Female, 49 years old. NO FAM HX -- NO CHILDREN -- LOST 10-# -- NO SX -- LT PORT REMOVED 03/2018 -- DIALYSIS CATH RT SIDE -PT NOW HAD CATH ON LT SIDE PERTINENT HISTORY: No significant family history. TECHNIQUE: 2-D mammograms and 3-D Tomosynthesis of the breast (s) were performed. CAD was performed. COMPARISON: August 18, 2018. FINDINGS: The breast composition is heterogeneously dense that can obscure small breast masses. Scattered benign calcifications are seen. No dense spiculated masses or suspicious microcalcifications are identified. No architectural distortion is identified. There is no skin thickening or retraction. There has been no significant change since the prior study. BI/SCREEN MAMM (CAD) W/OSCAR BILAT IMPRESSION: No mammographic signs of malignancy. Routine yearly mammograms recommended. ASSESSMENT CATEGORY: BIRADS Category 2: Benign. A letter regarding these results will be sent to the patient by the facility within 30 days. FOLLOW UP RECOMMENDATION: Yearly follow up mammogram recommended. (A) Approximately 10% of breast cancers are not detected by mammography. A normal mammogram should not delay biopsy of a clinically suspicious abnormality. Electronically Signed: Rafa Parekh MD at 8:14 EST , Service support ,
== END ==
PROVIDERS: Family Provider Family Medicine Geriatric Medicine; PCP Family Medicine Geriatric Medicine; Referring Provider Obstetrics & Gynecology; Visit Provider Obstetrics & Gynecology
DX: Z12.31 Encounter for screening mammogram for malignant neoplasm of breast (principal)
CPT/HCPCS: 77063; 77067

== ENCOUNTER → 2019-09-26 12:12 | Outpatient (CLI) | payer MEDICARE, MEDICAID, SELFPAY ==
--- NOTE | 2019-09-26 12:25 | RAD_ITS ---
STUDY: X-RAY CHEST REASON FOR EXAM: Female, 49 years old. Cough TECHNIQUE: PA and lateral views of the chest COMPARISON: None. FINDINGS: Left chest tunneled catheter is present with the tip at the SVC Left lower lung zone atelectasis and/or small infiltrate is present. The right lung is clear. There are no pleural effusions. There is no pneumothorax. The heart is normal in size. The visualized osseous structures are within normal limits. RAD/Chest PA and Lateral IMPRESSION: Left lower lung zone atelectasis and/or small infiltrate. Electronically Signed: Diogo Antonio, at 17:09 EST Tel , Service support ,
== END ==
PROVIDERS: Family Provider Family Medicine Geriatric Medicine; PCP Family Medicine Geriatric Medicine; Referring Provider Family Medicine Geriatric Medicine; Visit Provider Family Medicine Geriatric Medicine
DX: J41.0 Simple chronic bronchitis (principal); R68.83 Chills (without fever)
CPT/HCPCS: 71046; 87633

== ENCOUNTER → 2019-10-26 14:39 | Outpatient (CLI) | payer MEDICARE, MEDICAID, SELFPAY ==
[2019-10-10 10:12] VITALS: BMI 27.1
[2019-10-26 17:31] LABS: Absolute Neutrophil Count 7.4 X10^3/uL (2.0-7.7); Basophil# 0.04 X10^3/uL; Basophil% 0.4 % (0-1); Eosinophil# 0.04 X10^3/uL; Eosinophils% 0.4 % (0-5); Hematocrit 42.4 % (37-47); Hemoglobin 13.5 g/dL (12.0-15.0); Lymphocyte % 11.7 % (19-41); Mean Corp Hgb Conc 31.8 g/dL (32-36); Mean Corpuscular Hgb 32.1 pg (27.0-32.0); Mean Corpuscular Volume 100.7 fL (81-99); Monocyte# 0.74 X10^3/uL; Monocyte% 7.9 % (0-10); NRBC Flagged by Analyzer 1.8 % (0-5); Neutrophil % 79.1 % (47-70); POSITIVE MORPHOLOGY YES; Platelet Count 252 K/mm3 (150-450); RBC Distribution Width CV 18.3 % (11.6-14.6); RBC Distribution Width SD 65.1 fl (35.1-43.9); Red Blood Count 4.21 M/mm3 (4.2-5.4); White Blood Count 9.4 K/mm3 (4.4-11.0)
[2019-10-26 17:41] LABS: Differential Indicated SCAN CRITERIA MET
[2019-10-26 17:59] LABS: Vitamin D,25 Hydroxy 36.3 ng/mL (29.95-100.01)
[2019-10-26 18:14] LABS: ALB/GLOB Ratio 0.8 RATIO (0.9-2.4); AST(SGOT) 23 U/L (15-37); Alanine Aminotransfer ALT/SGPT 22 U/L (13-56); Albumin, Serum 3.9 g/dL (3.2-5.0); Alkaline Phosphatase 158 U/L (45-117); Anion Gap 11 (5-15); BUN 70 mg/dL (7-18); BUN/Creat Ratio 7.9 RATIO (10-20); Calcium,Total 9.7 mg/dL (8.5-10.1); Chloride 96 mmol/L (98-107); Creatinine, Serum 8.86 mg/dL (0.55-1.02); EST Glomerular Filtration Rate 5 mL/min (>60); Est Glom Filt Rate - Afr Amer 6 mL/min (>60); Globulin 4.8 g/dL (2.2-4.2); Glucose 127 mg/dL (74-106); Potassium 5.4 mmol/L (3.5-5.1); Protein, Total 8.7 g/dL (6.4-8.2); Sodium Level 133 mmol/L (136-145); Thyroid Stim Hormone (TSH) 0.89 uIU/mL (0.358-3.74)
[2019-10-26 18:15] LABS: Anisocytosis 1+; Platelet Estimate ADEQUATE (ADEQ); Polychromasia RARE; Red Cell Morphology N CHROM NORMAL (NORM C&C)
[2019-10-26 18:16] LABS: Macrocytosis 1+; Ovalocyte RARE
== END ==
PROVIDERS: PCP Family Medicine Geriatric Medicine; Visit Provider Family Medicine Geriatric Medicine
DX: E11.9 Type 2 diabetes mellitus without complications (principal); E55.9 Vitamin D deficiency, unspecified; I10 Essential (primary) hypertension
CPT/HCPCS: 36415; 80053; 82306; 84443; 85025

== ENCOUNTER → 2019-10-31 17:10 | Outpatient (CLI) | payer MEDICARE, MEDICAID, SELFPAY ==
[2019-10-31 15:46] VITALS: BMI 23.5
== END ==
PROVIDERS: PCP Family Medicine Geriatric Medicine; Referring Provider Family Medicine Geriatric Medicine; Visit Provider Family Medicine Geriatric Medicine
DX: R68.83 Chills (without fever) (principal)
CPT/HCPCS: 87633

== ENCOUNTER → 2019-11-27 12:29 | Outpatient (CLI) | payer SELFPAY ==
[2019-10-31 15:46] VITALS: BMI 23.5
[2019-11-27 13:09] LABS: Potassium 5.7 mmol/L (3.5-5.1)
== END ==
PROVIDERS: PCP Family Medicine Geriatric Medicine; Referring Provider Internal Medicine Nephrology; Visit Provider Internal Medicine Nephrology
DX: E87.5 Hyperkalemia (principal)
CPT/HCPCS: 84132

== ENCOUNTER 2019-11-30 14:59 | Outpatient (RCR) | payer MEDICARE, MEDICAID, SELFPAY ==
[2019-10-31 15:46] VITALS: BMI 23.5
== END 2019-12-12 23:59 ==
LOC: WC 14:59
PROVIDERS: PCP Family Medicine Geriatric Medicine; Visit Provider Nurse Practitioner Family
DX: Z09 Encounter for follow-up examination after completed treatment for conditions other than malignant neoplasm (principal)

== ENCOUNTER → 2020-02-01 14:26 | Outpatient (CLI) | payer MEDICARE, MEDICAID, SELFPAY ==
[2019-10-10 10:12] VITALS: BMI 27.1
[2019-10-31 15:46] VITALS: BMI 23.5
[2020-02-01 16:58] LABS: Absolute Lymphocyte Count 1.07 X10^3/uL (0.83-4.51); Absolute Neutrophil Count 9.1 X10^3/uL (2.0-7.7); Basophil# 0.05 X10^3/uL; Basophil% 0.4 % (0-1); Eosinophil# 0.08 X10^3/uL; Eosinophils% 0.7 % (0-5); Hematocrit 41.2 % (37-47); Hemoglobin 13.1 g/dL (12.0-15.0); Lymphocyte # 1.07 X10^3/ul (4.0); Lymphocyte % 9.4 % (19-41); Mean Corp Hgb Conc 31.8 g/dL (32-36); Mean Corpuscular Hgb 34.5 pg (27.0-32.0); Mean Corpuscular Volume 108.4 fL (81-99); Mean Platelet Vol. 10.4 fl (6.2-12.0); Monocyte# 1.06 X10^3/uL; Monocyte% 9.3 % (0-10); NRBC Flagged by Analyzer 0 % (0-5); Neutrophil # 9.08 X10^3/uL (2.7-7.7); Neutrophil % 79.5 % (47-70); Platelet Count 282 K/mm3 (150-450); RBC Distribution Width CV 15.6 % (11.6-14.6); RBC Distribution Width SD 62.8 fl (35.1-43.9); White Blood Count 11.4 K/mm3 (4.4-11.0)
[2020-02-01 17:11] LABS: Vitamin D,25 Hydroxy 45.1 ng/mL
[2020-02-01 17:57] LABS: ALB/GLOB Ratio 0.8 RATIO (0.9-2.4); AST(SGOT) 23 U/L (15-37); Alanine Aminotransfer ALT/SGPT 22 U/L (13-56); Albumin, Serum 3.6 g/dL (3.2-5.0); Alkaline Phosphatase 85 U/L (45-117); Anion Gap 14 (5-15); BUN 47 mg/dL (7-18); BUN/Creat Ratio 5.3 RATIO (10-20); Chloride 96 mmol/L (98-107); Creatinine, Serum 8.89 mg/dL (0.55-1.02); EST Glomerular Filtration Rate 5 mL/min (>60); Est Glom Filt Rate - Afr Amer 6 mL/min (>60); Globulin 4.7 g/dL (2.2-4.2); Glucose 114 mg/dL (74-106); Potassium 5.1 mmol/L (3.5-5.1); Protein, Total 8.3 g/dL (6.4-8.2); Sodium Level 134 mmol/L (136-145); Thyroid Stim Hormone (TSH) 0.68 uIU/mL (0.358-3.74)
== END ==
LOC: LAB.FUTURE 14:27 → POLAB3 14:28
PROVIDERS: PCP Family Medicine Geriatric Medicine; Visit Provider Family Medicine Geriatric Medicine
DX: E11.9 Type 2 diabetes mellitus without complications (principal); E78.5 Hyperlipidemia, unspecified; E55.9 Vitamin D deficiency, unspecified; I10 Essential (primary) hypertension
CPT/HCPCS: 36415; 80053; 82306; 84443; 85025; 97164

== ENCOUNTER → 2020-02-29 13:50 | Outpatient (CLI) | payer MEDICARE, MEDICAID, SELFPAY ==
[2019-10-31 15:46] VITALS: BMI 23.5
== END ==
PROVIDERS: PCP Family Medicine Geriatric Medicine; Referring Provider Internal Medicine Cardiovascular Disease; Visit Provider Internal Medicine Cardiovascular Disease
DX: T84.51XA Infection and inflammatory reaction due to internal right hip prosthesis, initial encounter (principal); I27.20 Pulmonary hypertension, unspecified
CPT/HCPCS: 93306; 97110

== ENCOUNTER 2020-03-07 14:10 | Inpatient (IN) | payer MEDICARE, MEDICAID, SELFPAY ==
[2019-10-31 15:46] VITALS: BMI 23.5
--- NOTE | 2020-03-07 12:31 | STE_ITS ---
Reason For Study: Pre-Op; Abnormal EKG Stress Results Protocol: Dobutamine Stress Echo Maximum Predicted HR: 173 bpm Target HR: 147 bpm % Maximum Predicted HR: 76 % Heart Stage Duration Rate BP Comment (mm:ss) (bpm) No Chest Pain; BP 151/110 Prior To Test; Order Received From Dr Morales For NTG; NTG 0.4 mg Given at 1255-BP After 144/103. NTG 0.4 MG Baseline 118 136/96Given at 1300-BP After 136/103; NTG 0.4 MG Given at 1305-BP After 136/96 DSE 10 MCG 3:49 120 147/97No Chest Pain DSE 20 MCG 3:00 126 89/58 No Chest Pain DSE 30 Throat Pain; EKG Changes-DR Morales Aware; Dobutamine Stopped; BP MCG 6:16 131 138/9566/46; Fluids wide open-BP inc to 114/71 after fluids started 111 145/87No Chest Pain; EKG Back to Baseline RecoveryR Stress Duration: 13:05 mm:ss Maximum Stress HR: 131 bpm METS: 1 Baseline Echocardiogram Findings The estimated ejection fraction is 65 %. Severe concentric left ventricular hypertrophy. Stress Echo Wall motion Data Resting WM Intermediate WM Stress WM Resting Wall Motion Wall Motion Stress No regional wall motion No regional wall motion abnormalities noted. abnormalities noted. EKG Data The baseline ECG displays normal sinus rhythm. The patient was titrated from 10 mcg to a maximun of 30 mcg of dobutamine during the stress. The maximum heart rate attained was 131 beats per minute. This was 75% of maximum predicted heart rate. No arrhythmias noted. Interpretation Summary The estimated ejection fraction is 65 %. Severe concentric left ventricular hypertrophy. Abnormal, submaximal, dobutamine echocardiogram. Positive for ischemia by EKG criteria only. No associated wall motion abilities noted. Patient at baseline J-point ST elevation along the anterior lateral leads prior to the initiation of dobutamine. During dobutamine infusion the patient had additional J-point elevation of the anterior lateral and inferior leads of 5 mm maximum causing test to be terminated early. In addition the patient had throat discomfort during infusion. Patient had no concomitant wall motion normalities noted. In addition the patient developed hypotension at peak dobutamine infusion which responded well to IV fluids. Her EKG changes resolved into recovery. Patient was admitted directly to the floor, once her symptoms abated and will be set up for left heart catheterization tomorrow morning. No other complications. Dr. Morales at bedside during testing. Ordering Physician: Cesar Morales Referring Physician: Mitchell Bowen Chi Performed By: Claudine Cuadra RDCS, RVT
[2020-03-07 14:21] VITALS: BMI 23.4
[2020-03-07 14:26] VITALS: BMI 23.5
--- NOTE | 2020-03-07 14:45 | EKG12_ITS ---
Test Reason : AM EKG Blood Pressure : / mmHG Vent. Rate : 091 BPM Atrial Rate : 091 BPM P-R Int : 156 ms QRS Dur : 090 ms QT Int : 374 ms P-R-T Axes : 050 064 065 degrees QTc Int : 460 ms AGE AND GENDER SPECIFIC ECG ANALYSIS Normal sinus rhythm J Point Elevation due to severe LVH Abnormal ECG When compared with ECG of 07-MAR-2020 14:52, MANUAL COMPARISON REQUIRED, DATA IS UNCONFIRMED Confirmed by RENAE ROBERTS ([id number]), editor index MARC RODRIGUEZ ([id number]) on 03/14/2020 12:08:37 PM Referred By: Edwige West Confirmed By:RENAE ROBERTS
[2020-03-07 15:00] VITALS: PULSE 104; O2SAT 98
[2020-03-07 15:03] VITALS: BP 138/81; PULSE 104; RESP 14; TEMP 36.8; O2SAT 100
[2020-03-07 15:16] LABS: Bedside Glucose 100 mg/dL (70-110)
--- NOTE | 2020-03-07 15:33 | PCM.HP.STD ---
<Hank Pichardo - Last Filed: 03/07/20 15:39> Problem List (1) ST segment changes on electrocardiogram Status: Acute (2) Anemia of chronic renal failure, stage 5 Status: Chronic (3) Anxiety and depression Status: Chronic (4) Uncontrolled hypertension Status: Chronic (5) Nonrheumatic mitral (valve) insufficiency Status: Chronic Comment: this was not mentioned on an ECH done in January of 2018 (6) Secondary pulmonary arterial hypertension Status: Chronic Comment: PA systolic estimated at 31 mmHg in January 2018, down from 50 in the past. (7) Non-rheumatic tricuspid valve insufficiency Status: Chronic Comment: Trivial on echocardiogram done in January 2018 (8) Narcolepsy Status: Chronic (9) Lupus nephritis Status: Chronic Comment: Status post kidney and liver biopsy (fatty liver) -now with end-stage renal disease on hemodialysis (10) Degenerative disc disease, cervical Status: Chronic (11) Cervical spondylosis Status: Chronic (12) Diabetes mellitus, type II Status: Chronic Comment: no longer requiring any medications (13) SLE (systemic lupus erythematosus) Status: Chronic History of Present Illness Date of Admission: 03/07/20 Chief Complaint: abnormal stress/ekg The patient is a 49 year old F with pmhx as above notable for CKD V 2/2 DMt2 and SLE who was undergoing a stress test today for pre-operative workup for a kidney transplant, and had EKG changes. This was done by Dr. Morales who is aware, and notable for ST segment changes. Currently the patient is resting comfortably in bed in the PCU in [facility] with no chest pain or SOB. She recently had an echo that showed EF 75% and no regional wall abnormalities. EKG on the floor shows ST segment elevations in V leads. It does not appear that she has any history of coronary disease altho she has had issues with long QT syndrome in the past. Dr. Morales plans to do a heart cath in the AM. She is a patient of Dr. Pb hills which she has regular dialysis.[] Past Medical History Past Medical History (Chronic Problems): Chronic Problems (Last Reviewed 10/30/19 @ 11:57 by Gabriella Mansfield) revision of right hip arthroplasty (Chronic 05/10/19) Acetabular component only: per Dr. Allen Bella @ [facility] for infection Anemia of chronic renal failure, stage 5 (Chronic) Anxiety and depression (Chronic) Chronic prescription benzodiazepine use (Chronic) Chronic steroid use (Chronic) for SLE Hypoglycemia (Chronic) ocassional - suspect related to poor apetite and intake and also to some of her medications. Cevimeline has been discntinued because of this Allergic rhinitis (Chronic) Prolonged QT interval (Chronic) Presence of surgically created arteriovenous shunt for hemodialysis (Chronic ~11/2017) Status post insertion of dialysis catheter (Chronic) Uncontrolled hypertension (Chronic) ESRD (end stage renal disease) on dialysis (Chronic) Nonrheumatic mitral (valve) insufficiency (Chronic) this was not mentioned on an ECH done in January of 2018 Secondary pulmonary arterial hypertension (Chronic) PA systolic estimated at 31 mmHg in January 2018, down from 50 in the past. Non-rheumatic tricuspid valve insufficiency (Chronic) Trivial on echocardiogram done in January 2018 Narcolepsy (Chronic) Lupus nephritis (Chronic) Status post kidney and liver biopsy (fatty liver) -now with end-stage renal disease on hemodialysis Degenerative disc disease, cervical (Chronic) Cervical spondylosis (Chronic) Diabetes mellitus, type II (Chronic) no longer requiring any medications SLE (systemic lupus erythematosus) (Chronic) Medical History: Medical History (Last Reviewed 10/30/19 @ 11:57 by Gabriella Mansfield) Infection of right prosthetic hip joint (Resolved) Onset Date: 03/29/19 T84.51XA MRSA: sent to [facility] for treatment and surgical revision Hip pain (Acute) M25.559 right - following recent R hip replacement Anemia of chronic renal failure, stage 5 (Chronic) N18.5, D63.1 Hypophosphatemia (Resolved) E83.39 Prolonged QT interval (Chronic) R94.31 ESRD (end stage renal disease) on dialysis (Chronic) N18.6, Z99.2 Nonrheumatic mitral (valve) insufficiency (Chronic) I34.0 this was not mentioned on an ECH done in January of 2018 Secondary pulmonary arterial hypertension (Chronic) I27.21 PA systolic estimated at 31 mmHg in January 2018, down from 50 in the past. Non-rheumatic tricuspid valve insufficiency (Chronic) I36.1 Trivial on echocardiogram done in January 2018 Narcolepsy (Chronic) G47.419 Lupus nephritis (Chronic) M32.14 Status post kidney and liver biopsy (fatty liver) -now with end-stage renal disease on hemodialysis Degenerative disc disease, cervical (Chronic) M50.30 Cervical spondylosis (Chronic) M47.812 Diabetes mellitus, type II (Chronic) E11.9 no longer requiring any medications SLE (systemic lupus erythematosus) (Chronic) M32.9 Chronic diarrhea (Resolved) K52.9 she is now on stool softeners Allergies LONG Inhibitors Allergy (Verified 10/30/19 11:56) Angioedema adhesive Allergy (Verified 10/30/19 11:56) Rash diphenhydramine Allergy (Verified 10/30/19 11:56) Unknown lisinopril Allergy (Verified 10/30/19 11:56) Angioedema Sulfa (Sulfonamide Antibiotics) Allergy (Verified 10/30/19 11:56) Rash sulfamethoxazole [From Bactrim] Allergy (Verified 10/30/19 11:56) Rash trimethoprim [From Bactrim] Allergy (Verified 10/30/19 11:56) Rash tuberculin, purified protein deriva Allergy (Verified 10/30/19 11:56) Unknown Angioderm Adverse Reaction (Unknown, Uncoded 06/09/19 09:04) Unknown Home Medications: Ambulatory Orders Medication Instructions Recorded Hydroxychloroquine [Plaquenil] 200 mg PO BID 10/01/16 Sevelamer Carbonate [Renvela] 1,600 mg PO TID 08/12/18 CycloSPORINE Ophthalmic [Restasis 1 drp EACH EYE BID 04/18/19 Ophthalmic] Docusate Sodium 100 mg PO BID PRN PRN 04/18/19 Ergocalciferol (Vitamin D2) 50 mcg PO QMONTH 04/18/19 [Vitamin D2] Montelukast [Singulair] 1 tab PO QHS 04/18/19 Nifedipine [Nifedipine ER] 90 mg PO DAILY 04/18/19 Ondansetron [Zofran Odt] 4 mg PO Q8H PRN PRN 04/18/19 Acetaminophen [Tylenol] 1,000 mg PO TID PRN 04/30/19 Fluticasone 0.05% [Flonase Nasal 2 spray NASAL BID 04/30/19 [place]] Atorvastatin Calcium [Lipitor] 20 mg PO QHS 06/02/19 Clonazepam [Klonopin] 1 mg PO BID 06/02/19 Darbepoetin Ganesh in Polysorbat 40 mcg IJ TU 06/02/19 [Aranesp] Folic Acid/Vitamin B Comp W-C 1 cap PO DAILY 06/02/19 [Nephrocaps, Renaphro] Lactobacillus Acidophilus 1 ea PO DAILY 06/02/19 [Acidophilus] Nut.tx.impaired Renal Fxn,Soy 237 ml PO BID 06/02/19 [Novasource Renal 2 Will] Sennosides [Senna] 8.6 mg PO BID 06/02/19 Carvedilol [Coreg (Beta Cirilo)] 25 mg PO Q8 tab 06/07/19 Clonidine Patch [Catapres-Tts2] 0.2 mg TRANSDERM. Q7D patch 06/07/19 Duloxetine Hcl [Cymbalta] 60 mg PO DAILY cap 06/07/19 Famotidine 10 mg PO DAILY #1 tab 06/07/19 Glucagon 1 mg IM .X1 PRN #1 syringe 06/07/19 Menthol/Lanolin/Calamine/Znox 1 applic TOPICAL BID tube 06/07/19 [Calmoseptine Ointment] Metoclopramide HCl [Reglan] 5 mg PO BID #0 06/07/19 Nepro Liquid [Nepro Carb Steady] 120 ml PO 4X/DAY liquid 06/07/19 Sodium Chloride 0.65% [[place] Nasal 2 spray NASAL DAILY PRN PRN 06/07/19 [place]] spray.btl Lidocaine [Lidoderm Patch] 1 patch TOPICAL DAILY #30 patch 06/09/19 bisacodyl 10 mg rectal suppository 10 mg RC DAILY PRN 08/02/19 heparin (porcine) 5,000 unit/mL 5,000 unit SC TID 08/02/19 injection syringe magnesium hydroxide 400 mg/5 mL 30 ml PO DAILY PRN ml 08/02/19 oral suspension nystatin 500,000 unit tablet 500,000 unit PO BID tab 08/02/19 oxycodone 5 mg tablet 5 mg PO Q6H PRN tab 08/02/19 prednisone 5 mg tablet 5 mg PO DAILY 08/02/19 methylphenidate HCl 10 mg tablet 10 mg PO DAILY 10/31/19 Sucroferric Oxyhydroxide [Velphoro] 500 mg PO TID 03/07/20 Surgical History: Surgical History (Last Reviewed 10/30/19 @ 11:57 by Gabriella Mansfield) revision of right hip arthroplasty (Chronic) Onset Date: 05/10/19 Acetabular component only: per Dr. Allen Bella @ [facility] for infection Presence of surgically created arteriovenous shunt for hemodialysis (Chronic) Onset Date: ~11/2017 Z99.2 Status post insertion of dialysis catheter (Chronic) Z95.828, Z99.2 History of esophagogastroduodenoscopy (EGD) Z98.890 S/P colonoscopy Z98.890 S/P lymph node biopsy Z98.890 S/P nasal polypectomy Z98.890 Status post carpal tunnel release Z98.890 Status post total hip replacement, bilateral Z96.643 port removed Surgical History: - - failed AVF left arm, AVF right arm, carpal tunnel release, BL total hip Psychiatric History: Depression ACTUARIAL DIRECTOR History: No pertinent ACTUARIAL DIRECTOR history Lives: Alone Smoking Status: Never smoker Tobacco Use: Non-smoker Alcohol: None Drugs: None - *Family History Maternal Family History: Family History (Last Reviewed 03/07/20 @ 15:42 by HEBERT Colon) Mother Hypertension Kidney disease ALS (amyotrophic lateral sclerosis) Father Heart disease Hypertension Kidney disease Diabetes History Items: Diabetes, High Cholesterol, Heart Disease, Hypertension, Renal Disease, - Paternal Family History: Family History (Last Reviewed 03/07/20 @ 15:42 by HEBERT Colon) Mother Hypertension Kidney disease ALS (amyotrophic lateral sclerosis) Father Heart disease Hypertension Kidney disease Diabetes History Items: Diabetes, High Cholesterol, Heart Disease, Hypertension, Renal Disease Sibling Family History: Family History (Last Reviewed 03/07/20 @ 15:42 by HEBERT Colon) Mother Hypertension Kidney disease ALS (amyotrophic lateral sclerosis) Father Heart disease Hypertension Kidney disease Diabetes History Items: Diabetes Review of Systems Constitutional: Denies: Chills, Fever, Weight Change, Fatigue HEENT: Denies: Head Aches, Sinus Congestion, Sinus Drainage Cardiovascular: Denies: Chest Pain, Edema, Heaviness, Palpitations Respiratory: Denies: Cough, Shortness of Breath, Shortness of breath at rest, Sputum production Gastrointestinal: Denies: Abdominal Pain, Diarrhea, Nausea, Vomiting Genitourinary: Denies: Dysuria, Frequency, Urgency Musculoskeletal: Denies: Joint Pain, Joint Tenderness Skin: Denies: Rash, Wounds Neurological: Denies: Numbness, Tingling, Focal weakness Psychiatric: Denies: Anxiety, Depression, Homicidal Ideations, Suicidal Ideations Hematologic/ Lymphatic: Denies: Easy Bruising, Easy Bleeding VTE Information - Inpt Only VTE Present on Admission: No VTE Mechan Device Prophylaxis: None VTE Pharm Prophylaxis ordered?: Yes Patient Problems: Active and Suspected Problems (Last Reviewed 10/30/19 @ 11:57 by Gabriella Mansfield) ST segment changes on electrocardiogram (Acute) - Physical Exam Vitals/I&O's: Vital Signs Temp Pulse Resp BP Pulse Ox 98.3 F 104 H 14 138/81 H 100 03/07/20 15:03 03/07/20 15:03 03/07/20 15:03 03/07/20 15:03 03/07/20 15:03 Oxygen Delivery Method Room Air Weight: 136 lb 10.986 oz Body Mass Index (BMI) 23.4 Finger Stick Blood Glucose 116 General: Alert, Oriented x3, Cooperative HEENT: Atraumatic, PERRLA, EOMI, Normocephalic Neck: Supple, No JVD, Negative Carotid Bruits Lungs: Clear to auscultation, Normal air movement Cardiovascular: Regular rate, No murmurs Abdomen: Bowel Sounds Present, Soft, Non Tender Extremities: No edema, Capillary Refill Less than 3 Seconds Skin: No rashes, No breakdown Musculoskeletal: No Tenderness to Palpation of Joints or Extremities Neurological: Cranial nerves II-XII grossly intact Psych/Mental Status: Normal Affect, Appropriate, Alert and oriented to time, place, person, mood and affect Laboratory Results 03/07/20 15:08: POC Glucose 100 Current Medications Acetaminophen (Tylenol) 1,000 mg PO TID PRN PRN Reason: Pain Score 1-10/10 Atorvastatin Calcium (Lipitor) 20 mg PO QHS ENRIQUE Bisacodyl (Dulcolax) 10 mg RECTAL DAILY PRN PRN Reason: Constipation Carvedilol (Coreg) 25 mg PO Q8 ENRIQUE Clonazepam (Klonopin) 1 mg PO BID ENRIQUE Clonidine HCl (Catapres-Tts2) 0.2 mg TRANSDERM. Q7D ENRIQUE Dextrose (D50w Syringe) 0 gm IV X1 PRN; Protocol PRN Reason: Hypoglycemia Docusate Sodium (Colace) 100 mg PO BID PRN PRN PRN Reason: Constipation Duloxetine HCl (Cymbalta) 60 mg PO DAILY ENRIQUE Fluticasone Propionate (Flonase Nasal [place]) 2 spray NASAL BID ENRIQUE Glucagon () 1 mg IM .X1 PRN PRN Reason: Hypoglycemia Heparin Sodium (Porcine) (Heparin Na) 5,000 unit SC Q12 [facility] Hydroxychloroquine Sulfate (Plaquenil) 200 mg PO BID [facility] Sodium Chloride () 1,000 mls @ 15 mls/hr IV .Q48H ENRIQUE Insulin Human Lispro (Humalog Kwikpen (Bkc)) 0 unit SC ACHS [facility]; Protocol Last Admin: 03/07/20 15:17 Dose: Not Given Documented by: Metoclopramide HCl (Reglan) 5 mg PO BID [facility] Montelukast Sodium (Singulair) mg PO QHS [facility] Multivit/Ca Carb/B Cmplx/FA/Prenat (Nephrocaps, Renaphro) capsule PO DAILY [facility] Non-Formulary Medication (Nystatin) 500,000 unit PO BID [facility] Non-Formulary Medication (Nifedipine [Nifedipine Er]) 90 mg PO DAILY [facility] Non-Formulary Medication (Methylphenidate Hcl) 10 mg PO DAILY [facility] Non-Formulary Medication (Lactobacillus Acidophilus [Acidophilus]) 1 ea PO DAILY [facility] Non-Formulary Medication (Famotidine) 10 mg PO DAILY [facility] Non-Formulary Medication (Cyclosporine Ophthalmic [Restasis Ophthalmic]) 1 drp EACH EYE BID [facility] Nutritional Formula (Nepro Carb Steady) 120 ml PO 4X/DAY [facility] Oxycodone HCl (Oxyir) 5 mg PO Q6H PRN PRN Reason: pain Prednisone () 5 mg PO DAILY [facility] Senna (Senokot) tablet PO BID [facility] Sevelamer Carbonate (Renvela) 2,400 mg PO TIDCM [facility] Sodium Chloride () 10 - 40 ml IV UD PRN PRN Reason: SALINE FLUSH Sodium Chloride ([place] Nasal [place]) 2 spray NASAL DAILY PRN PRN PRN Reason: SINUSITIS Assessment/Plan All Active Problems (Last Reviewed 10/30/19 @ 11:57 by Gabriella Mansfield) ST segment changes on electrocardiogram (Acute) Infection of right prosthetic hip joint (Resolved 03/29/19) Hip pain (Acute) Hypophosphatemia (Resolved) Altered mental status (Resolved) Chronic diarrhea (Resolved) Extremity edema (Resolved) Hyperkalemia (Resolved) Hypertensive urgency, malignant (Resolved) UTI (urinary tract infection) (Ruled-out) 1. EKG changes, ST elevations, during stress test with Dr. Morales today - Dr. Morales consulted. Plan is for cath in AM. Cycle enzymes and repeat EKG in AM. Recent echo with preserved EF and no wall abnormalities. Continue coreg, lipitor, otherwise as directed by cardiology. 2. ESRD 2/2 DMt2 and SLE - pt of Dr. Ambriz, undergoing pre op evals for kidney transplant. Continue dialysis, phosphate binders 3. SLE - continue daily prednisone, plaquenil 4. DMt2 - SSI, accuchecks 5. Anx/Depression - cymbalta, klonopin 6. HTN - stable DVT ppx: heparin This patient was seen by Hank Pichardo PA-C under the supervision of Doctor Brett. <Edwige West - Last Filed: 03/07/20 16:10> History of Present Illness The patient is a 49 year old F [] Past Medical History Medical History: Medical History (Last Reviewed 10/30/19 @ 11:57 by Gabriella Mansfield) Infection of right prosthetic hip joint (Resolved) Onset Date: 03/29/19 T84.51XA MRSA: sent to [facility] for treatment and surgical revision Hip pain (Acute) M25.559 right - following recent R hip replacement Anemia of chronic renal failure, stage 5 (Chronic) N18.5, D63.1 Hypophosphatemia (Resolved) E83.39 Prolonged QT interval (Chronic) R94.31 ESRD (end stage renal disease) on dialysis (Chronic) N18.6, Z99.2 Nonrheumatic mitral (valve) insufficiency (Chronic) I34.0 this was not mentioned on an ECH done in January of 2018 Secondary pulmonary arterial hypertension (Chronic) I27.21 PA systolic estimated at 31 mmHg in January 2018, down from 50 in the past. Non-rheumatic tricuspid valve insufficiency (Chronic) I36.1 Trivial on echocardiogram done in January 2018 Narcolepsy (Chronic) G47.419 Lupus nephritis (Chronic) M32.14 Status post kidney and liver biopsy (fatty liver) -now with end-stage renal disease on hemodialysis Degenerative disc disease, cervical (Chronic) M50.30 Cervical spondylosis (Chronic) M47.812 Diabetes mellitus, type II (Chronic) E11.9 no longer requiring any medications SLE (systemic lupus erythematosus) (Chronic) M32.9 Chronic diarrhea (Resolved) K52.9 she is now on stool softeners Allergies LONG Inhibitors Allergy (Verified 10/30/19 11:56) Angioedema adhesive Allergy (Verified 10/30/19 11:56) Rash diphenhydramine Allergy (Verified 10/30/19 11:56) Unknown lisinopril Allergy (Verified 10/30/19 11:56) Angioedema Sulfa (Sulfonamide Antibiotics) Allergy (Verified 10/30/19 11:56) Rash sulfamethoxazole [From Bactrim] Allergy (Verified 10/30/19 11:56) Rash trimethoprim [From Bactrim] Allergy (Verified 10/30/19 11:56) Rash tuberculin, purified protein deriva Allergy (Verified 10/30/19 11:56) Unknown Angioderm Adverse Reaction (Unknown, Uncoded 06/09/19 09:04) Unknown Surgical History: Surgical History (Last Reviewed 10/30/19 @ 11:57 by Gabriella Mansfield) revision of right hip arthroplasty (Chronic) Onset Date: 05/10/19 Acetabular component only: per Dr. Allen Bella @ [facility] for infection Presence of surgically created arteriovenous shunt for hemodialysis (Chronic) Onset Date: ~11/2017 Z99.2 Status post insertion of dialysis catheter (Chronic) Z95.828, Z99.2 History of esophagogastroduodenoscopy (EGD) Z98.890 S/P colonoscopy Z98.890 S/P lymph node biopsy Z98.890 S/P nasal polypectomy Z98.890 Status post carpal tunnel release Z98.890 Status post total hip replacement, bilateral Z96.643 port removed - *Family History Maternal Family History: Family History (Last Reviewed 03/07/20 @ 15:42 by HEBERT Colon) Mother Hypertension Kidney disease ALS (amyotrophic lateral sclerosis) Father Heart disease Hypertension Kidney disease Diabetes Paternal Family History: Family History (Last Reviewed 03/07/20 @ 15:42 by HEBERT Colon) Mother Hypertension Kidney disease ALS (amyotrophic lateral sclerosis) Father Heart disease Hypertension Kidney disease Diabetes Sibling Family History: Family History (Last Reviewed 03/07/20 @ 15:42 by HEBERT Colon) Mother Hypertension Kidney disease ALS (amyotrophic lateral sclerosis) Father Heart disease Hypertension Kidney disease Diabetes - Physical Exam Vitals/I&O's: Vital Signs Temp Pulse Resp BP Pulse Ox 98.3 F 104 H 14 138/81 H 100 03/07/20 15:03 03/07/20 15:03 03/07/20 15:03 03/07/20 15:03 03/07/20 15:03 Oxygen Delivery Method Room Air Weight: 62 kg Body Mass Index (BMI) 23.4 Finger Stick Blood Glucose 116 Laboratory Results 03/07/20 15:08: POC Glucose 100 03/07/20 15:30: WBC 8.5, RBC 3.47 L, Hgb 12.2, Hct 37.8, MCV 108.9 H, MCH 35.2 H, MCHC 32.3, RDW Std Deviation 59.4 H, RDW Coeff of Jah 15.1 H, Plt Count 203, MPV 9.7, Immature Gran % (Auto) 1.100 H, Neut % (Auto) 79.9 H, Lymph % (Auto) 10.3 L, [place] % (Auto) 8.3, Eos % (Auto) 0.0, Baso % (Auto) 0.4, Absolute Neuts (auto) 6.8, Absolute Lymphs (auto) 0.87, Nucleated RBC % 0 03/07/20 15:30: Sodium Pending, Potassium Pending, Chloride Pending, Carbon Dioxide Pending, BUN Pending, Creatinine Pending, Est GFR (MDRD) Af Amer Pending, Est GFR (MDRD) Non-Af Pending, BUN/Creatinine Ratio Pending, Glucose Pending, Calcium Pending, Phosphorus Pending, Albumin Pending 03/07/20 15:30: PT Pending, INR Pending, APTT Pending Current Medications Acetaminophen (Tylenol) 1,000 mg PO TID PRN PRN Reason: Pain Score 1-10/10 Atorvastatin Calcium (Lipitor) 20 mg PO QHS ENRIQUE Bisacodyl (Dulcolax) 10 mg RECTAL DAILY PRN PRN Reason: Constipation Carvedilol (Coreg) 25 mg PO Q8 ENRIQUE Clonazepam (Klonopin) 1 mg PO BID ENRIQUE Clonidine HCl (Catapres-Tts2) 0.2 mg TRANSDERM. Q7D ENRIQUE Dextrose (D50w Syringe) 0 gm IV X1 PRN; Protocol PRN Reason: Hypoglycemia Docusate Sodium (Colace) 100 mg PO BID PRN PRN PRN Reason: Constipation Duloxetine HCl (Cymbalta) 60 mg PO DAILY [facility] Fluticasone Propionate (Flonase Nasal [place]) 2 spray NASAL BID ENRIQUE Glucagon () 1 mg IM .X1 PRN PRN Reason: Hypoglycemia Heparin Sodium (Porcine) (Heparin Na) 5,000 unit SC Q12 [facility] Hydroxychloroquine Sulfate (Plaquenil) 200 mg PO BID ENRIQUE Sodium Chloride () 1,000 mls @ 15 mls/hr IV .Q48H ENRIQUE Insulin Human Lispro (Humalog Kwikpen (Bkc)) 0 unit SC ACHS [facility]; Protocol Last Admin: 03/07/20 15:17 Dose: Not Given Documented by: Metoclopramide HCl (Reglan) 5 mg PO BID ENRIQUE Montelukast Sodium (Singulair) mg PO QHS [facility] Multivit/Ca Carb/B Cmplx/FA/Prenat (Nephrocaps, Renaphro) capsule PO DAILY [facility] Non-Formulary Medication (Nystatin) 500,000 unit PO BID [facility] Non-Formulary Medication (Nifedipine [Nifedipine Er]) 90 mg PO DAILY ENRIQUE Non-Formulary Medication (Methylphenidate Hcl) 10 mg PO DAILY [facility] Non-Formulary Medication (Lactobacillus Acidophilus [Acidophilus]) 1 ea PO DAILY [facility] Non-Formulary Medication (Famotidine) 10 mg PO DAILY ENRIQUE Non-Formulary Medication (Cyclosporine Ophthalmic [Restasis Ophthalmic]) 1 drp EACH EYE BID [facility] Nutritional Formula (Nepro Carb Steady) 120 ml PO 4X/DAY ENRIQUE Oxycodone HCl (Oxyir) 5 mg PO Q6H PRN PRN Reason: pain Prednisone () 5 mg PO DAILY [facility] Senna (Senokot) tablet PO BID ENRIQUE Sevelamer Carbonate (Renvela) 2,400 mg PO TIDCM [facility] Sodium Chloride () 10 - 40 ml IV UD PRN PRN Reason: SALINE FLUSH Sodium Chloride ([place] Nasal [place]) 2 spray NASAL DAILY PRN PRN PRN Reason: SINUSITIS Assessment/Plan This patient was seen in conjunction with HEBERT Colon. I have independently interviewed and examined the patient and reviewed pertinent historical, laboratory, and other data. Please refer to HEBERT Colon note for his patient's presentation, findings, and recommendations. I have reviewed and his note and concur with his documentation 49-year-old female with past medical history of SLE, ESRD, on hemodialysis, Wednesday?Wednesday?Wednesday, hypertension, type II DM who had a dobutamine stress echo done today and results were abnormal. Patient was having dynamic ST-T segments changes with predominant ST segment elevation seen on EKG. She denied any chest pain or dizziness or palpitations. She will be having a cardiac cath done tomorrow. She denies any sick contacts. Discussed with cardiology, will load with plavix and aspirin, cardiac cath in am Physical Exam: Gen:Comfortable, not pale, not jaundiced CVS:HS I +II, regular, no murmurs, right arm fistula with bruit and thrill RESP: CTA GI: BS present and normal, soft, nontender, no palpable organs EXT:No edema ASSESSMENT: 1. Abnormal EKG with ST segment elevation seen on dobutamine stress test 2. ESRD on hemodialysis 3. Type II DM 4. SLE 5. Anxiety/depression 6. Hypertension Plan: Aspirin 324 mg p.o. x1 Plavix 300 mg p.o. x1 Admitting blood work Continue rest of home medications Cardiac cath in a.m. Nephrology consulted Inpatient E&M: 27238 Init Hosp L3
[2020-03-07 15:48] LABS: Absolute Lymphocyte Count 0.87 X10^3/uL (0.83-4.51); Absolute Neutrophil Count 6.8 X10^3/uL (2.0-7.7); Basophil# 0.03 X10^3/uL; Basophil% 0.4 % (0-1); Hematocrit 37.8 % (37-47); Hemoglobin 12.2 g/dL (12.0-15.0); Lymphocyte # 0.87 X10^3/ul (4.0); Lymphocyte % 10.3 % (19-41); Mean Corp Hgb Conc 32.3 g/dL (32-36); Mean Corpuscular Hgb 35.2 pg (27.0-32.0); Mean Corpuscular Volume 108.9 fL (81-99); Mean Platelet Vol. 9.7 fl (6.2-12.0); Monocyte% 8.3 % (0-10); NRBC Flagged by Analyzer 0 % (0-5); Neutrophil # 6.78 X10^3/uL (2.7-7.7); Neutrophil % 79.9 % (47-70); Platelet Count 203 K/mm3 (150-450); RBC Distribution Width CV 15.1 % (11.6-14.6); RBC Distribution Width SD 59.4 fl (35.1-43.9); Red Blood Count 3.47 M/mm3 (4.2-5.4); White Blood Count 8.5 K/mm3 (4.4-11.0)
[2020-03-07 16:02] LABS: International Normalized Ratio 0.9; Partial Thromboplast Time 22.2 Seconds (24.1-36.2); Prothrombin Time (Protime)PT. 12.1 SECONDS (11.7-14.9)
[2020-03-07 16:04] LABS: Albumin, Serum 3.2 g/dL (3.2-5.0); BUN 63 mg/dL (7-18); BUN/Creat Ratio 6.8 RATIO (10-20); Calcium,Total 9.7 mg/dL (8.5-10.1); Chloride 99 mmol/L (98-107); Creatinine, Serum 9.29 mg/dL (0.55-1.02); EST Glomerular Filtration Rate 5 mL/min (>60); Est Glom Filt Rate - Afr Amer 6 mL/min (>60); Estimated Creatinine Clearance 6.46 ml/min; Glucose 140 mg/dL (74-106); Phosphorus 3.8 mg/dL (2.5-4.9); Sodium Level 137 mmol/L (136-145)
[2020-03-07] MEDS: SUCROFERRIC OXYHYDROXIDE 500 MG TAB.CHEW PO ×3 (16:38→23:26)
[2020-03-07] MEDS: Aspirin 325 MG Tablet PO (16:42)
[2020-03-07] MEDS: Clopidogrel Bisulfate 300 MG Tablet PO (16:42)
[2020-03-07] MEDS: SEVELAMER CARBONATE 800 MG TABLET 2400 MG PO (16:55)
[2020-03-07] MEDS: Hydroxychloroquine 200 MG Tablet PO (17:43)
[2020-03-07] MEDS: Carvedilol 12.5 MG Tablet PO (17:43)
[2020-03-07 18:59] VITALS: PULSE 120
[2020-03-07 20:30] VITALS: BP 159/86; PULSE 114; RESP 16; TEMP 36.7; O2SAT 98
--- NOTE | 2020-03-07 21:14 | CON.PCM_ITS ---
Consultation - Renal 03/07/20 PCP/ Referring MD: Requesting physician: [] Primary care physician: Dr. Mitchell Bowen MD Reason for Consultation:: ESRD HD MWF - History of Present Illness History of Present Illness: The patient is a 49 year old F with ESRD due to diabetes, hx SLE, HTN, DM2 admitted for heart cath for abnormal stress test done today for kidney transplant workup. She had ST segment changes on EKG. She was hospitalized in November at [facility] for chest pain, abnormal cardiac enzymes during preop testing for AV fistula surgery. She denied chest pain, SOB. She is due for her next hemodialysis tomorrow. - Allergies Allergies: Allergies LONG Inhibitors Allergy (Verified 10/30/19 11:56) Angioedema adhesive Allergy (Verified 10/30/19 11:56) Rash diphenhydramine Allergy (Verified 10/30/19 11:56) Unknown lisinopril Allergy (Verified 10/30/19 11:56) Angioedema Sulfa (Sulfonamide Antibiotics) Allergy (Verified 10/30/19 11:56) Rash sulfamethoxazole [From Bactrim] Allergy (Verified 10/30/19 11:56) Rash trimethoprim [From Bactrim] Allergy (Verified 10/30/19 11:56) Rash tuberculin, purified protein deriva Allergy (Verified 10/30/19 11:56) Unknown Angioderm Adverse Reaction (Unknown, Uncoded 06/09/19 09:04) Unknown - Current Medications Current Medications: Current Medications Acetaminophen (Tylenol) 1,000 mg PO TID PRN PRN Reason: Pain Score 1-10/10 Artificial Tears (Tears Naturale, Artificial Tears) 0 drop OPHTHALMIC Q2H PRN PRN PRN Reason: DRY EYES Atorvastatin Calcium (Lipitor) 20 mg PO QHS [facility] Bisacodyl (Dulcolax) 10 mg RECTAL DAILY PRN PRN Reason: Constipation Carvedilol (Coreg) 12.5 mg PO BIDCM [facility] Last Admin: 03/07/20 17:43 Dose: 12.5 mg Documented by: Clonazepam (Klonopin) 1 mg PO BID PRN PRN Reason: ANXIETY Clonidine HCl (Catapres-Tts2) 0.2 mg TRANSDERM. Q7D [facility] Last Admin: 03/07/20 16:38 Dose: Not Given Documented by: Dextrose (D50w Syringe) 0 gm IV X1 PRN; Protocol PRN Reason: Hypoglycemia Docusate Sodium (Colace) 100 mg PO BID PRN PRN PRN Reason: Constipation Duloxetine HCl (Cymbalta) 60 mg PO DAILY [facility] Famotidine (Pepcid) 10 mg PO DAILY [facility] Fluticasone Propionate (Flonase Nasal [place]) 2 spray NASAL BID [facility] Glucagon () 1 mg IM .X1 PRN PRN Reason: Hypoglycemia Heparin Sodium (Porcine) (Heparin Na) 5,000 unit SC Q12 [facility] Hydroxychloroquine Sulfate (Plaquenil) 200 mg PO BIDCM [facility] Last Admin: 03/07/20 17:43 Dose: 200 mg Documented by: Sodium Chloride () 1,000 mls @ 15 mls/hr IV .Q48H [facility] Insulin Human Lispro (Humalog Kwikpen (Bkc)) 0 unit SC ACHS [facility]; Protocol Last Admin: 03/07/20 15:17 Dose: Not Given Documented by: Lactobacillus Acidophilus (Acidophilus) 1 tablet PO DAILY [facility] Metoclopramide HCl (Reglan) 5 mg PO BID [facility] Montelukast Sodium (Singulair) 10 mg PO QHS [facility] Multivit/Ca Carb/B Cmplx/FA/Prenat (Nephrocaps, Renaphro) 1 capsule PO DAILY [facility] Neomycin/Polymyxin/Dexamethasone (Maxitrol) 1 applic OPHTHALMIC BID [facility] Nifedipine (Procardia Xl) 90 mg PO DAILY [facility] Non-Formulary Medication (Methylphenidate Hcl) 10 mg PO DAILY [facility] Nutritional Formula (Nepro Carb Steady) 120 ml PO 4X/DAY [facility] Last Admin: 03/07/20 17:08 Dose: Not Given Documented by: Nystatin (Nystatin) 500,000 unit PO BID [facility] Oxycodone HCl (Oxyir) 5 mg PO Q6H PRN PRN Reason: pain [facility] () [facility] Senna (Senokot) 1 tablet PO BID [facility] Sevelamer Carbonate (Renvela) 800 mg PO TIDCM [facility] Sodium Chloride () 10 - 40 ml IV UD PRN PRN Reason: SALINE FLUSH Sodium Chloride ([place] Nasal [place]sey) 2 spray NASAL DAILY PRN PRN PRN Reason: SINUSITIS - Past Medical History Past Medical History (Chronic Problems): Chronic Problems (Last Reviewed 10/30/19 @ 11:57 by Gabriella Mansfield) revision of right hip arthroplasty (Chronic 05/10/19) Acetabular component only: per Dr. Allen Bella @ [facility] for infection Anemia of chronic renal failure, stage 5 (Chronic) Anxiety and depression (Chronic) Chronic prescription benzodiazepine use (Chronic) Chronic steroid use (Chronic) for SLE Hypoglycemia (Chronic) ocassional - suspect related to poor apetite and intake and also to some of her medications. Cevimeline has been discntinued because of this Allergic rhinitis (Chronic) Prolonged QT interval (Chronic) Presence of surgically created arteriovenous shunt for hemodialysis (Chronic ~11/2017) Status post insertion of dialysis catheter (Chronic) Uncontrolled hypertension (Chronic) ESRD (end stage renal disease) on dialysis (Chronic) Nonrheumatic mitral (valve) insufficiency (Chronic) this was not mentioned on an ECH done in January of 2018 Secondary pulmonary arterial hypertension (Chronic) PA systolic estimated at 31 mmHg in January 2018, down from 50 in the past. Non-rheumatic tricuspid valve insufficiency (Chronic) Trivial on echocardiogram done in January 2018 Narcolepsy (Chronic) Lupus nephritis (Chronic) Status post kidney and liver biopsy (fatty liver) -now with end-stage renal disease on hemodialysis Degenerative disc disease, cervical (Chronic) Cervical spondylosis (Chronic) Diabetes mellitus, type II (Chronic) no longer requiring any medications SLE (systemic lupus erythematosus) (Chronic) - Past Surgical History Surgical History: - - failed AVF left arm, AVF right arm, carpal tunnel release, BL total hip - Social History Smoking Status: Never smoker Alcohol: None Drugs: None - Family History Maternal Family History: Family History (Last Reviewed 03/07/20 @ 15:42 by HEBERT Colon) Mother Hypertension Kidney disease ALS (amyotrophic lateral sclerosis) Father Heart disease Hypertension Kidney disease Diabetes History Items: Diabetes, High Cholesterol, Heart Disease, Hypertension, Renal Disease, - Paternal Family History: Family History (Last Reviewed 03/07/20 @ 15:42 by HEBERT Colon) Mother Hypertension Kidney disease ALS (amyotrophic lateral sclerosis) Father Heart disease Hypertension Kidney disease Diabetes History Items: Diabetes, High Cholesterol, Heart Disease, Hypertension, Renal Disease Sibling Family History: Family History (Last Reviewed 03/07/20 @ 15:42 by HEBERT Colon) Mother Hypertension Kidney disease ALS (amyotrophic lateral sclerosis) Father Heart disease Hypertension Kidney disease Diabetes History Items: Diabetes Review of Systems Constitutional: Denies: Anorexia, Chills, Fever, Weakness Cardiovascular: Denies: Chest Pain Respiratory: Denies: Cough Gastrointestinal: Denies: Abdominal Pain, Nausea, Vomiting Musculoskeletal: Denies: Arm Pain Psychiatric: Reports: Anxiety, Depression Hematologic/ Lymphatic: Reports: Anemia Patient Problems: Active and Suspected Problems (Last Reviewed 10/30/19 @ 11:57 by Gabriella Mansfield) ST segment changes on electrocardiogram (Acute) - Physical Exam Vitals/I&O's: Vital Signs Temp Pulse Resp BP Pulse Ox 98.1 F 114 H 16 159/86 H 98 03/07/20 20:30 03/07/20 20:30 03/07/20 20:30 03/07/20 20:30 03/07/20 20:30 Oxygen Delivery Method Room Air Weight: 62 kg Body Mass Index (BMI) 23.4 Finger Stick Blood Glucose 116 Intake and Output for Last 24 Hours 03/05/20 03/06/20 03/07/20 23:59 23:59 23:59 Intake Total 725 / 725 Balance 725 / 725 General: Alert, Oriented x3, Cooperative, No apparent distress Lungs: Clear to auscultation Cardiovascular: Regular rate Abdomen: Bowel Sounds Present, Soft, Non Tender, Non-Distended Extremities: No edema Musculoskeletal: Muscle Wasting Psych/Mental Status: Normal Affect, Appropriate, Alert and oriented to time, place, person, mood and affect Laboratory Results 03/07/20 15:08: POC Glucose 100 03/07/20 15:30: WBC 8.5, RBC 3.47 L, Hgb 12.2, Hct 37.8, MCV 108.9 H, MCH 35.2 H , MCHC 32.3, RDW Std Deviation 59.4 H, RDW Coeff of Jah 15.1 H, Plt Count 203, MPV 9.7, Immature Gran % (Auto) 1.100 H, Neut % (Auto) 79.9 H, Lymph % (Auto) 10.3 L, [place] % (Auto) 8.3, Eos % (Auto) 0.0, Baso % (Auto) 0.4, Absolute Neuts (auto) 6.8, Absolute Lymphs (auto) 0.87, Nucleated RBC % 0 03/07/20 15:30: Sodium 137, Potassium 5.0, Chloride 99, Carbon Dioxide 28.0, BUN 63 H, Creatinine 9.29 H*, Estim Creat Clear Calc 6.46, Est GFR (MDRD) Af Amer 6 L, Est GFR (MDRD) Non-Af 5 L, BUN/Creatinine Ratio 6.8 L, Glucose 140 H, Calcium 9.7, Phosphorus 3.8, Albumin 3.2 03/07/20 15:30: PT 12.1, INR 0.9, APTT 22.2 L 03/07/20 15:30: Troponin I 0.583 H Current Medications Acetaminophen (Tylenol) 1,000 mg PO TID PRN PRN Reason: Pain Score 1-10/10 Artificial Tears (Tears Naturale, Artificial Tears) 0 drop OPHTHALMIC Q2H PRN PRN PRN Reason: DRY EYES Atorvastatin Calcium (Lipitor) 20 mg PO QHS [facility] Bisacodyl (Dulcolax) 10 mg RECTAL DAILY PRN PRN Reason: Constipation [facility]il[facility] ([facility]g) [facility] Last Admin: 03/07/20 17:43 Dose: 12.5 mg Documented by: Clonazepam (Klonopin) 1 mg PO BID PRN PRN Reason: ANXIETY Clonidine HCl (Catapres-Tts2) 0.2 mg TRANSDERM. Q7D [facility] Last Admin: 03/07/20 16:38 Dose: Not Given Documented by: Dextrose (D50w Syringe) 0 gm IV X1 PRN; Protocol PRN Reason: Hypoglycemia Docusate Sodium (Colace) 100 mg PO BID PRN PRN PRN Reason: Constipation Duloxetine HCl (Cymbalta) 60 mg PO DAILY [facility] Famotidine (Pepcid) 10 mg PO DAILY [facility] Fluticasone Propionate (Flonase Nasal [place]) 2 spray NASAL BID [facility] Glucagon () 1 mg IM .X1 PRN PRN Reason: Hypoglycemia Heparin Sodium (Porcine) (Heparin Na) 5,000 unit SC Q12 [facility] Hydroxychloroquine Sulfate (Plaquenil) [facility] Last Admin: 03/07/20 17:43 Dose: 200 mg Documented by: Sodium Chloride () 1,000 mls @ 15 mls/hr IV .Q48H [facility] Insulin Human Lispro (Humalog Kwikpen (Bkc)) 0 unit SC ACHS [facility]; Protocol Last Admin: 03/07/20 15:17 Dose: Not Given Documented by: Lactobacillus Acidophilus (Acidophilus) 1 tablet PO DAILY [facility] Metoclopramide HCl (Reglan) 5 mg PO BID [facility] Montelukast Sodium (Singulair) 10 mg PO QHS [facility] Multivit/Ca Carb/B Cmplx/FA/Prenat (Nephrocaps, Renaphro) 1 capsule PO DAILY [facility] Neomycin/Polymyxin/Dexamethasone (Maxitrol) 1 applic OPHTHALMIC BID [facility] Nifedipine (Procardia Xl) 90 mg PO DAILY [facility] Non-Formulary Medication (Methylphenidate Hcl) 10 mg PO DAILY [facility] Nutritional Formula (Nepro Carb Steady) 120 ml PO 4X/DAY [facility] Last Admin: 03/07/20 17:08 Dose: Not Given Documented by: Nystatin (Nystatin) 500,000 unit PO BID [facility] Oxycodone HCl (Oxyir) 5 mg PO Q6H PRN PRN Reason: pain Prednisone () 5 mg PO DAILYCM [facility] Senna (Senokot) 1 tablet PO BID [facility] Sevelamer Carbonate (Renvela) 800 mg PO TIDCM [facility] Sodium Chloride () 10 - 40 ml IV UD PRN PRN Reason: SALINE FLUSH Sodium Chloride ([place] Nasal [place]sey) 2 spray NASAL DAILY PRN PRN PRN Reason: SINUSITIS Assessment/Plan All Active Problems (Last Reviewed 10/30/19 @ 11:57 by Gabriella Mansfield) ST segment changes on electrocardiogram (Acute) Infection of right prosthetic hip joint (Resolved 03/29/19) Hip pain (Acute) Hypophosphatemia (Resolved) Altered mental status (Resolved) Chronic diarrhea (Resolved) Extremity edema (Resolved) Hyperkalemia (Resolved) Hypertensive urgency, malignant (Resolved) UTI (urinary tract infection) (Ruled-out) 1. ESRD HD Wednesday with [facility], follow chronic orders. Hx failed AVFistula placement due to central stenosis, incision infection 2. Abnormal stress test. Heart cath tomorrow 3. HTN stable 4. DM2 5. SLE 6. Hx cdiff colitis 7. Anemia hgb stable 8. Hyperphosphatemia phos stable. Continue binders, may take velphoro from home or switch to renvela if velphoro not available.
[2020-03-07] MEDS: Fluticasone 0.05% 1 SPRAY NASAL.SRY 2 SPRAY NASAL (21:20)
[2020-03-07] MEDS: Heparin Injection (Vial) 5,000 UNIT/ML VIAL 5000 UNIT SC (21:21)
[2020-03-07] MEDS: Metoclopramide 5 MG TABLET PO (21:23)
[2020-03-07] MEDS: Neomycin/Polymyxin/Dexameth OINT 3.5GM OPTH.TUBE 1 APPLIC OPHTHALMIC (21:24)
[2020-03-07] MEDS: clonazePAM 1 MG Tablet PO (22:20)
[2020-03-07] MEDS: Pregabalin 50 MG Capsule PO (22:20)
[2020-03-07] MEDS: Loratadine 10 MG Tablet 5 MG PO (22:20)
[2020-03-07 22:35] LABS: Bedside Glucose 96 mg/dL (70-110)
[2020-03-08] VITALS (13 sets, daily range): BP systolic 113–163; BP diastolic 75–102; PULSE 84–104; RESP 16–18; TEMP 36.3–36.7; O2SAT 96–98
--- NOTE | 2020-03-08 05:55 | EKG12_ITS ---
Test Reason : CP ADMISSION Blood Pressure : / mmHG Vent. Rate : 102 BPM Atrial Rate : 102 BPM P-R Int : 152 ms QRS Dur : 086 ms QT Int : 346 ms P-R-T Axes : 042 045 053 degrees QTc Int : 450 ms AGE AND GENDER SPECIFIC ECG ANALYSIS Sinus tachycardia J Point Elevation c/w severe LVH Consider right ventricular involvement in acute inferior infarct Abnormal ECG When compared with ECG of 18-APR-2019 05:02, ST elevation now present in Anterior leads Nonspecific T wave abnormality no longer evident in Anterolateral leads Confirmed by RENAE ROBERTS ([id number]), news copy editor MARC RODRIGUEZ ([id number]) on 03/14/2020 12:07:42 PM Referred By: Edwige West Confirmed By:RENAE ROBERTS
[2020-03-08 06:44] LABS: International Normalized Ratio 0.9
[2020-03-08] MEDS: 0.9% Normal Saline 1,000 ML 15 ML IV (06:49)
[2020-03-08] MEDS: DiphenhydrAMINE 25 MG Capsule 50 MG PO (06:49)
[2020-03-08] MEDS: Carvedilol 12.5 MG Tablet PO (06:50)
[2020-03-08] MEDS: Famotidine 20 MG Tablet 10 MG PO (06:50)
[2020-03-08] MEDS: 0.9% Saline Lock 10 ML Syringe IV ×2 (06:51→10:16)
[2020-03-08 07:00] LABS: Bedside Glucose 95 mg/dL (70-110)
--- NOTE | 2020-03-08 07:54 | CL.D_ITS ---
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 Comorbidities/Risk Factors: Hypertension Dyslipidemia Currently On Dialysis CONCLUSIONS Normal coronary arteries Normal Left Ventricular systolic function LVEF: by LV gram 65-75 % Elevated Left Ventricular End Diastolic Pressure Left Ventricular Hypertrophy - severe RECOMMENDATIONS No recommendations -> Normal findings Pt is at low risk for renal transplant. Manual sheath removal. d/c plavix. D/w Dr Garcia. DESCRIPTION OF PROCEDURE The patient arrived to the procedure lab. The risks and benefits of the procedure as well as a full d escription of our services here and current unavailability of surgical backup were fully explained to the patient and/or their significant other prior to the catheterization. The Timeout was completed, verifying the correct patient and procedure. The patient's procedural site was prepped and draped in the usual fashion. Local anesthetic was given subcutaneously to right groin region with Lidocaine 2%. Using a modified Seldinger technique, arterial access was obtained via the right femoral artery, a 4 Fr sheath was inserted Left Coronary Artery selective angiography was performed in multiple views us ing a 4 Fr. JL5 catheter. Right Coronary Artery selective angiography was then performed in multiple views using a 4 Fr. 3DRC catheter. Left Ventriculography was performed in WHITFIELD projection using a 4 Fr . Pigtail catheter. LV to AO pullback pressures were then recorded.The arterial sheath was pulled and manual compression applied until hemostasis is achieved. CORONARY ANGIOGRAPHY DOMINANCE: Right Dominant LEFT HEART ASSESSMENT Left Ventricular Ejection Fraction: by LV Gram 65-75 % Normal LV wall motion Normal Left Ventricular systolic function Normal Left Ventricular systolic function Elevated Left Ventricular End Diastolic Pressure Cardiomyopathy: Hypertrophic LEFT MAIN: Angiographically normal LEFT ANTERIOR DESCENDING ARTERY: Angiographically normal CIRCUMFLEX ARTERY: Angiographically normal RIGHT CORONARY ARTERY: Angiographically normal COMPLICATIONS No Complications PROCEDURE MEDICATIONS Oxygen: 2 L/min via nasal cannula Nitro 200 mcg IC 03/08/2020 07:44:10 SUMMARY OF HEMODYNAMIC DATA Time AIR REST ECG 07:27:12 AO 185/106 (138) SA 07:38:34 LV 160/-9, 19 07:43:32 LV 166/-8, 19 07:43:38 LVp 164/-11, 14 07:43:43 AOp 167/97 (126) 07:43:48 Signed By Cesar Morales MD On 03/08/2020 07:54:00 Cesar Morales MD
--- NOTE | 2020-03-08 09:44 | DCINST_ITS ---
- Discharge Diagnoses Current Active Problems: Current Active and Chronic Problems (Last Reviewed 10/30/19 @ 11:57 by Gabriella Mansfield) History of left heart catheterization (Chronic 03/08/20) No recommendations -> Normal findings. Pt is at low risk for renal transplant. Manual sheath removal. d/c plavix. 03/08/2020 per DJN @ [facility] ST segment changes on electrocardiogram (Acute) You will use the following diet at home:: Calorie/Carbohydrate Controlled (specify 1200, 1400, etc) - 1800 esvero / day, Cardiac, Renal (restricted protein/sodium) Your food should be the consistency of: Regular Your liquids should be the consistency of: Regular/Thin Discharge Activity: Return to Normal Activity Allergies/Adverse Reactions: Allergies LONG Inhibitors Allergy (Verified 10/30/19 11:56) Angioedema adhesive Allergy (Verified 10/30/19 11:56) Rash diphenhydramine Allergy (Verified 10/30/19 11:56) Unknown lisinopril Allergy (Verified 10/30/19 11:56) Angioedema Sulfa (Sulfonamide Antibiotics) Allergy (Verified 10/30/19 11:56) Rash sulfamethoxazole [From Bactrim] Allergy (Verified 10/30/19 11:56) Rash trimethoprim [From Bactrim] Allergy (Verified 10/30/19 11:56) Rash tuberculin, purified protein deriva Allergy (Verified 10/30/19 11:56) Unknown Angioderm Adverse Reaction (Unknown, Uncoded 06/09/19 09:04) Unknown Medications to take at Discharge Hydroxychloroquine [Plaquenil] 200 mg PO BID 10/01/16 Sevelamer Carbonate [Renvela] 800 mg PO TID 08/12/18 CycloSPORINE Ophthalmic [Restasis Ophthalmic] 1 drp EACH EYE BID 04/18/19 Docusate Sodium 100 mg PO BID PRN PRN 04/18/19 Ergocalciferol (Vitamin D2) [Vitamin D2] 50 mcg PO QMONTH 04/18/19 Montelukast [Singulair] 1 tab PO QHS 04/18/19 Nifedipine [Nifedipine ER] 90 mg PO DAILY 04/18/19 Ondansetron [Zofran Odt] 4 mg PO Q8H PRN PRN 04/18/19 Acetaminophen [Tylenol] 1,000 mg PO TID PRN 04/30/19 Fluticasone 0.05% [Flonase Nasal [place]] 2 spray NASAL BID 04/30/19 Atorvastatin Calcium [Lipitor] 20 mg PO QHS 06/02/19 Clonazepam [Klonopin] 1 mg PO BID PRN 06/02/19 Darbepoetin Ganesh in Polysorbat [Aranesp] 40 mcg IJ TU 06/02/19 Folic Acid/Vitamin B Comp W-C [Nephrocaps, Renaphro] 1 cap PO DAILY 06/02/19 Lactobacillus Acidophilus [Acidophilus] 1 ea PO DAILY 06/02/19 Nut.tx.impaired Renal Fxn,Soy [Novasource Renal 2 [place]] 237 ml PO BID 06/02/19 Sennosides [Senna] 8.6 mg PO BID 06/02/19 Clonidine Patch [Catapres-Tts2] 0.2 mg TRANSDERM. Q7D patch 06/07/19 Duloxetine Hcl [Cymbalta] 60 mg PO DAILY cap 06/07/19 Famotidine 10 mg PO DAILY #1 tab 06/07/19 Glucagon 1 mg IM .X1 PRN #1 syringe 06/07/19 Menthol/Lanolin/Calamine/Znox [Calmoseptine Ointment] 1 applic TOPICAL BID tube 06/07/19 Metoclopramide HCl [Reglan] 5 mg PO BID #0 06/07/19 Nepro Liquid [Nepro Carb Steady] 120 ml PO 4X/DAY liquid 06/07/19 Sodium Chloride 0.65% [[place] Nasal [place]] 2 spray NASAL DAILY PRN PRN spray.btl 06/07/19 Lidocaine [Lidoderm Patch] 1 patch TOPICAL DAILY #30 patch 06/09/19 bisacodyl 10 mg rectal suppository 10 mg RC DAILY PRN 08/02/19 heparin (porcine) 5,000 unit/mL injection syringe 5,000 unit SC TID 08/02/19 magnesium hydroxide 400 mg/5 mL oral suspension 30 ml PO DAILY PRN ml 08/02/19 nystatin 500,000 unit tablet 500,000 unit PO BID tab 08/02/19 oxycodone 5 mg tablet 5 mg PO Q6H PRN tab 08/02/19 prednisone 5 mg tablet 5 mg PO DAILY 08/02/19 methylphenidate HCl 10 mg tablet 10 mg PO DAILY 10/31/19 Carvedilol [Coreg] 12.5 mg PO BID 03/07/20 Pregabalin [Lyrica] 50 mg PO BID 03/07/20 Sucroferric Oxyhydroxide [Velphoro] 500 mg PO TID 03/07/20 Xyzal 5 mg PO QHS 03/07/20 Primary Care Physician: Mitchell Bowen Chi, MD [Primary Care Provider] - Please follow up with your Primary Care Physician in: 1-2 weeks Test Results: Test results from this visit will be discussed in further detail at your follow- up appointment, if applicable. Please Follow Up With: Arline Ambriz DO When: as directed Please Follow Up With: Transplant team When: as directed Please Follow Up With: Cesar Morales MD When: as directed Proposed Discharge Date: 03/08/20
--- NOTE | 2020-03-08 09:54 | PHA.DC.MR ---
Pharmacy Service has performed discharge medication reconciliation for this patient. The patient's discharge medication list was reviewed for discrepancies and discrepancies were resolved. Home Medications Hydroxychloroquine [Plaquenil] 200 mg PO BID 10/01/16 Sevelamer Carbonate [Renvela] 800 mg PO TID 08/12/18 CycloSPORINE Ophthalmic [Restasis Ophthalmic] 1 drp EACH EYE BID 04/18/19 Docusate Sodium 100 mg PO BID PRN PRN 04/18/19 Ergocalciferol (Vitamin D2) [Vitamin D2] 50 mcg PO QMONTH 04/18/19 Montelukast [Singulair] 1 tab PO QHS 04/18/19 Nifedipine [Nifedipine ER] 90 mg PO DAILY 04/18/19 Ondansetron [Zofran Odt] 4 mg PO Q8H PRN PRN 04/18/19 Acetaminophen [Tylenol] 1,000 mg PO TID PRN 04/30/19 Fluticasone 0.05% [Flonase Nasal [place]] 2 spray NASAL BID 04/30/19 Atorvastatin Calcium [Lipitor] 20 mg PO QHS 06/02/19 Clonazepam [Klonopin] 1 mg PO BID PRN 06/02/19 Darbepoetin Ganesh in Polysorbat [Aranesp] 40 mcg IJ TU 06/02/19 Folic Acid/Vitamin B Comp W-C [Nephrocaps, Renaphro] 1 cap PO DAILY 06/02/19 Lactobacillus Acidophilus [Acidophilus] 1 ea PO DAILY 06/02/19 Nut.tx.impaired Renal Fxn,Soy [Novasource Renal 2 Will] 237 ml PO BID 06/02/19 Sennosides [Senna] 8.6 mg PO BID 06/02/19 Clonidine Patch [Catapres-Tts2] 0.2 mg TRANSDERM. Q7D patch 06/07/19 Duloxetine Hcl [Cymbalta] 60 mg PO DAILY cap 06/07/19 Famotidine 10 mg PO DAILY #1 tab 06/07/19 Glucagon 1 mg IM .X1 PRN #1 syringe 06/07/19 Menthol/Lanolin/Calamine/Znox [Calmoseptine Ointment] 1 applic TOPICAL BID tube 06/07/19 Metoclopramide HCl [Reglan] 5 mg PO BID #0 06/07/19 Nepro Liquid [Nepro Carb Steady] 120 ml PO 4X/DAY liquid 06/07/19 Sodium Chloride 0.65% [[place] Nasal [place]] 2 spray NASAL DAILY PRN PRN spray.btl 06/07/19 Lidocaine [Lidoderm Patch] 1 patch TOPICAL DAILY #30 patch 06/09/19 bisacodyl 10 mg rectal suppository 10 mg RC DAILY PRN 08/02/19 heparin (porcine) 5,000 unit/mL injection syringe 5,000 unit SC TID 08/02/19 magnesium hydroxide 400 mg/5 mL oral suspension 30 ml PO DAILY PRN ml 08/02/19 nystatin 500,000 unit tablet 500,000 unit PO BID tab 08/02/19 oxycodone 5 mg tablet 5 mg PO Q6H PRN tab 08/02/19 prednisone 5 mg tablet 5 mg PO DAILY 08/02/19 methylphenidate HCl 10 mg tablet 10 mg PO DAILY 10/31/19 Carvedilol [Coreg] 12.5 mg PO BID 03/07/20 Pregabalin [Lyrica] 50 mg PO BID 03/07/20 Sucroferric Oxyhydroxide [Velphoro] 500 mg PO TID 03/07/20 Xyzal 5 mg PO QHS 03/07/20
--- NOTE | 2020-03-08 10:00 | CASEMGMT ---
RN LISSA CEMETERY LABORER CM to room to meet with patient for initial transition planning/care coordination assessment. ROSHAN ALCARAZ introduced self and role at [facility]. Pt voices understanding and consents to assessment at this time. Pt resting in bed in no distress at this time. Pt is A/O at this time and answers all questions appropriately. Care providers, pharmacy, and demographics verified/updated at this time. PCP: Dr Bowen Specialists: Dr Marte--psychiatry, Dr Ambriz--nephrology, Dr Morales--cardiology, Dr Emmanuel--pain mgmt, [facility] Preferred Pharmacy: [place] Insurance: COM DEV Prescription Benefit: Yes Living Will/HPOA: Has both LW and Healthcare POA, who is her sister: Torsten Robles. Pt states she [facility]. Call placed to [employer] and they faxed copies of both LW and HPOA. These were placed on pt's chart at this time LNOK: Mom, 2 brothers and sister Living Arrangements: Lives w/her mom in 2-story home w/one step to enter. [employer]. Independent w/ADL's. Has Financial Services Consultant La Guerra through [facility] [place]. Elizabeth ASHLEY made aware. Pt is supposed to have aides for 20 hrs/week but they do not have staffing to provide this. She receives 7 meals/week from [employer] and has medical alert button. Transportation: [employer], [employer]: has the following DME: shower chair, cane, walker, medical alert button. Pt states no need for further DME at this time. HHC/SNF: Hx: [facility], [facility]. [facility] Pt states is currently going to OP therapy @ [facility] for PT and OT and she wishes to continue with this. She denies needs for HHC. [facility]. Chair time @ 1130. Pt will be on bedrest until 1200 post heart cath. [facility]. They state they will be able to take pt today for dialysis treatment as long as pt arrives to their clinic by 1700. supervisor audit clerkseRbeka, dimple aware and Elizabeth ASHLEY aware and will set up transportation for pt through [employer]. Pt wishes to return home and states has no concerns with going home at time of discharge. CM to follow for any further discharge planning/needs. Pt voices no further concerns/needs at this time. Advised pt to ask for CM if any further questions/concerns/needs arise. Voices understanding. PLAN: Home w/resumption of OP therapy @ [facility] Rj BORRERO RN, CM
[2020-03-08] MEDS: Fluticasone 0.05% 1 SPRAY NASAL.SRY 2 SPRAY NASAL (10:11)
[2020-03-08] MEDS: Hydroxychloroquine 200 MG Tablet PO (10:12)
[2020-03-08] MEDS: SEVELAMER CARBONATE 800 MG TABLET PO ×2 (10:13→12:49)
[2020-03-08] MEDS: Folic Acid/Vitamin B Comp W-C 1 Capsule 1 CAP PO (10:13)
[2020-03-08] MEDS: DULoxetine Hcl 60 MG Capsule PO (10:13)
[2020-03-08] MEDS: Metoclopramide 5 MG TABLET PO (10:13)
[2020-03-08] MEDS: Neomycin/Polymyxin/Dexameth OINT 3.5GM OPTH.TUBE 1 APPLIC OPHTHALMIC (10:14)
[2020-03-08] MEDS: SUCROFERRIC OXYHYDROXIDE 500 MG TAB.CHEW PO ×2 (10:16→12:48)
[2020-03-08] MEDS: Pregabalin 50 MG Capsule PO (10:21)
[2020-03-08] MEDS: predniSONE 5 MG Tablet PO (10:21)
--- NOTE | 2020-03-08 10:33 | CASEMGMT ---
Social Work Pt ready for discharge today and will be going from [facility] to dialysis at [facility]. Phone call to [place] and they are able to transport pt from [facility] to [facility] and will stop pt at home to pickling grader her things for dialysis. supervisor scrap preparation time at 1pm. Pt and nursing made aware. left for direction home coverage team of pt admission and discharge. D/C information to be faxed when available. ALISA Valera
[2020-03-08 11:45] LABS: Bedside Glucose 158 mg/dL (70-110)
--- NOTE | 2020-03-08 12:11 | PCM.DC.SUM ---
<Hank Pichardo - Last Filed: 03/08/20 12:11> Discharge Date and Diagnosis - Problem List Patient Problems: Active and Suspected Problems (Last Reviewed 10/30/19 @ 11:57 by Gabriella Mansfield) ST segment changes on electrocardiogram (Acute) Date of Admission: 03/07/20 Date of Discharge: 03/08/20 - Primary Discharge Diagnosis Acute Problems: Active Problems (Last Reviewed 10/30/19 @ 11:57 by Gabriella Mansfield) ST segment changes during stress test ESRD Indeterminate troponin - Secondary Discharge Diagnosis Chronic Problems: Chronic Problems (Last Reviewed 10/30/19 @ 11:57 by Gabriella Mansfield) History of left heart catheterization (Chronic 03/08/20) No recommendations -> Normal findings. Pt is at low risk for renal transplant. Manual sheath removal. d/c plavix. 03/08/2020 per STACY @ [facility] revision of right hip arthroplasty (Chronic 05/10/19) Acetabular component only: per Dr. Allen Bella @ [facility] for infection Anemia of chronic renal failure, stage 5 (Chronic) Anxiety and depression (Chronic) Chronic prescription benzodiazepine use (Chronic) Chronic steroid use (Chronic) for SLE Hypoglycemia (Chronic) ocassional - suspect related to poor apetite and intake and also to some of her medications. Cevimeline has been discntinued because of this Allergic rhinitis (Chronic) Prolonged QT interval (Chronic) Presence of surgically created arteriovenous shunt for hemodialysis (Chronic ~11/2017) Status post insertion of dialysis catheter (Chronic) Uncontrolled hypertension (Chronic) ESRD (end stage renal disease) on dialysis (Chronic) Nonrheumatic mitral (valve) insufficiency (Chronic) this was not mentioned on an ECH done in January of 2018 Secondary pulmonary arterial hypertension (Chronic) PA systolic estimated at 31 mmHg in January 2018, down from 50 in the past. Non-rheumatic tricuspid valve insufficiency (Chronic) Trivial on echocardiogram done in January 2018 Narcolepsy (Chronic) Lupus nephritis (Chronic) Status post kidney and liver biopsy (fatty liver) -now with end-stage renal disease on hemodialysis Degenerative disc disease, cervical (Chronic) Cervical spondylosis (Chronic) Diabetes mellitus, type II (Chronic) no longer requiring any medications SLE (systemic lupus erythematosus) (Chronic) Hospital Course and Treatment Imaging Results: DIAGNOSTICS: Stress Echo: Interpretation Summary The estimated ejection fraction is 65 %. Severe concentric left ventricular hypertrophy. Abnormal, submaximal, dobutamine echocardiogram. Positive for ischemia by EKG criteria only. No associated wall motion abilities noted. Patient at baseline J-point ST elevation along the anterior lateral leads prior to the initiation of dobutamine. During dobutamine infusion the patient had additional J-point elevation of the anterior lateral and inferior leads of 5 mm maximum causing test to be terminated early. In addition the patient had throat discomfort during infusion. Patient had no concomitant wall motion normalities noted. In addition the patient developed hypotension at peak dobutamine infusion which responded well to IV fluids. Her EKG changes resolved into recovery. Patient was admitted directly to the floor, once her symptoms abated and will be set up for left heart catheterization tomorrow morning. No other complications. Dr. Morales at bedside during testing. L heart cath: CONCLUSIONS Normal coronary arteries Normal Left Ventricular systolic function LVEF: by LV gram 65-75 % Elevated Left Ventricular End Diastolic Pressure Left Ventricular Hypertrophy - severe RECOMMENDATIONS No recommendations -> Normal findings Pt is at low risk for renal transplant. Manual sheath removal. d/c plavix. D/w Dr Garcia. CORONARY ANGIOGRAPHY DOMINANCE: Right Dominant LEFT HEART ASSESSMENT Left Ventricular Ejection Fraction: by LV Gram 65-75 % Normal LV wall motion Normal Left Ventricular systolic function Normal Left Ventricular systolic function Elevated Left Ventricular End Diastolic Pressure Cardiomyopathy: Hypertrophic LEFT MAIN: Angiographically normal LEFT ANTERIOR DESCENDING ARTERY: Angiographically normal CIRCUMFLEX ARTERY: Angiographically normal RIGHT CORONARY ARTERY: Angiographically normal Consults: Cardiology - [facility] - Pb Operations: None Procedures: Cardiac catheterization Summary of Care Provided: Hospital Course: The patient is a 49 year old F with pmhx as above who was admitted to the PCU for EKG changes during her stress test. She was having an outpatient stress echo with Dr. Morales for surgical clearance for a possible kidney replacement. She had ST elevations. On arrival to the PCU she had no SOB or chest pain. Troponin was indeterminate at 0.583. Dr. Morales took the patient for a heart cath the following morning. She had no obstructive coronary disease - see report above. 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 This patient was seen by Hank Pichardo PA-C under the supervision of Dr. Ashelfah. [] Patient Problems: Active and Suspected Problems (Last Reviewed 10/30/19 @ 11:57 by Gabriella Mansfield) ST segment changes on electrocardiogram (Acute) - Physical Exam Vitals/I&O's: Vital Signs Temp Pulse Resp BP Pulse Ox 97.3 F L 89 18 130/84 H 96 03/08/20 10:23 03/08/20 11:00 03/08/20 11:00 03/08/20 11:00 03/08/20 11:00 Oxygen Delivery Method Room Air Weight: 145 lb 8.081 oz Body Mass Index (BMI) 23.4 Finger Stick Blood Glucose 116 Intake and Output for Last 24 Hours 03/06/20 03/07/20 03/08/20 23:59 23:59 23:59 Intake Total 1205 / 1205 262.75 / 262.75 Balance 1205 / 1205 262.75 / 262.75 General: Alert, Oriented x3, Cooperative HEENT: Atraumatic, PERRLA, EOMI, Normocephalic Neck: Supple, No JVD, Negative Carotid Bruits Lungs: Clear to auscultation, Normal air movement Cardiovascular: Regular rate, No murmurs Abdomen: Bowel Sounds Present, Soft, Non Tender Extremities: No edema, Capillary Refill Less than 3 Seconds Skin: No rashes, No breakdown Musculoskeletal: No Tenderness to Palpation of Joints or Extremities Neurological: Cranial nerves II-XII grossly intact Psych/Mental Status: Normal Affect, Appropriate, Alert and oriented to time, place, person, mood and affect Laboratory Results 03/07/20 15:08: POC Glucose 100 03/07/20 15:30: WBC 8.5, RBC 3.47 L, Hgb 12.2, Hct 37.8, MCV 108.9 H, MCH 35.2 H, MCHC 32.3, RDW Std Deviation 59.4 H, RDW Coeff of Jah 15.1 H, Plt Count 203, MPV 9.7, Immature Gran % (Auto) 1.100 H, Neut % (Auto) 79.9 H, Lymph % (Auto) 10.3 L, Wharton % (Auto) 8.3, Eos % (Auto) 0.0, Baso % (Auto) 0.4, Absolute Neuts (auto) 6.8, Absolute Lymphs (auto) 0.87, Nucleated RBC % 0 03/07/20 15:30: Sodium 137, Potassium 5.0, Chloride 99, Carbon Dioxide 28.0, BUN 63 H, Creatinine 9.29 H*, Estim Creat Clear Calc 6.46, Est GFR (MDRD) Af Amer 6 L, Est GFR (MDRD) Non-Af 5 L, BUN/Creatinine Ratio 6.8 L, Glucose 140 H, Calcium 9.7, Phosphorus 3.8, Albumin 3.2 03/07/20 15:30: PT 12.1, INR 0.9, APTT 22.2 L 03/07/20 15:30: Troponin I 0.583 H 03/07/20 22:28: POC Glucose 96 03/08/20 05:55: PT 12.0, INR 0.9 03/08/20 06:44: POC Glucose 95 03/08/20 11:36: POC Glucose 158 H Current Medications Acetaminophen (Tylenol) 1,000 mg PO TID PRN PRN Reason: Pain Score 1-10/10 Artificial Tears (Tears Naturale, Artificial Tears) 0 drop OPHTHALMIC Q2H PRN PRN PRN Reason: DRY EYES Atorvastatin Calcium (Lipitor) 20 mg PO QHS [facility] Last Admin: 03/07/20 21:22 Dose: Not Given Documented by: Bisacodyl (Dulcolax) 10 mg RECTAL DAILY PRN PRN Reason: Constipation [facility] Last Admin: 03/08/20 06:50 Dose: 12.5 mg Documented by: Clonazepam (Klonopin) 1 mg PO BID PRN PRN Reason: ANXIETY Last Admin: 03/07/20 22:20 Dose: 1 mg Documented by: Clonidine HCl (Catapres-Tts2) 0.2 mg TRANSDERM. Q7D [facility] Last Admin: 03/07/20 16:38 Dose: Not Given Documented by: Dextrose (D50w Syringe) 0 gm IV X1 PRN; Protocol PRN Reason: Hypoglycemia Docusate Sodium (Colace) 100 mg PO BID PRN PRN PRN Reason: Constipation Duloxetine HCl (Cymbalta) 60 mg PO DAILY [facility] Last Admin: 03/08/20 10:13 Dose: 60 mg Documented by: Famotidine (Pepcid) 10 mg PO DAILY [facility] Last Admin: 03/08/20 06:50 Dose: 10 mg Documented by: Fluticasone Propionate (Flonase Nasal [place]) 2 spray NASAL BID [facility] Last Admin: 03/08/20 10:11 Dose: 2 sprays Documented by: Glucagon () 1 mg IM .X1 PRN PRN Reason: Hypoglycemia Heparin Sodium (Beef Lung) (Heparin 500 Unit/5 Ml (100/Ml)) 500 unit IV UD PRN PRN Reason: HEPARIN FLUSH Heparin Sodium (Porcine) (Heparin Na) 5,000 unit SC Q12 [facility] Last Admin: 03/08/20 06:46 Dose: Not Given Documented by: Hydroxychloroquine Sulfate (Plaquenil) 200 mg PO BIDCM [facility] Last Admin: 03/08/20 10:12 Dose: 200 mg Documented by: Sodium Chloride () 1,000 mls @ 15 mls/hr IV .Q48H [facility] Last Infusion: 03/08/20 08:20 Dose: 0 mls/hr Documented by: Insulin Human Lispro (Humalog Kwikpen (Bkc)) 0 unit SC ACHS [facility]; Protocol Last Admin: 03/08/20 06:45 Dose: Not Given Documented by: Labetalol HCl (Trandate) 5 mg IV X1 PRN PRN Reason: SBP > 160 prior to sheath pull Stop: 03/10/20 07:47 Lactobacillus Acidophilus (Acidophilus) 1 tablet PO DAILY [facility] Last Admin: 03/08/20 10:14 Dose: Not Given Documented by: Loratadine (Claritin) 5 mg PO QHS [facility] Last Admin: 03/07/20 22:20 Dose: 5 mg Documented by: Methylphenidate HCl (Ritalin (G)) 10 mg PO DAILY [facility] Last Admin: 03/08/20 10:15 Dose: Not Given Documented by: Metoclopramide HCl (Reglan) 5 mg PO BID [facility] Last Admin: 03/08/20 10:13 Dose: 5 mg Documented by: Montelukast Sodium (Singulair) 10 mg PO QHS [facility] Last Admin: 03/07/20 21:23 Dose: Not Given Documented by: Multivit/Ca Carb/B Cmplx/FA/Prenat (Nephrocaps, Renaphro) 1 capsule PO DAILY [facility] Last Admin: 03/08/20 10:13 Dose: 1 capsule Documented by: Neomycin/Polymyxin/Dexamethasone (Maxitrol) 1 applic OPHTHALMIC BID [facility] Last Admin: 03/08/20 10:14 Dose: 1 applic Documented by: Nifedipine (Procardia Xl) 90 mg PO DAILY [facility] Last Admin: 03/08/20 06:51 Dose: Not Given Documented by: Nutritional Formula (Nepro Carb Steady) 120 ml PO 4X/DAY [facility] Last Admin: 03/08/20 06:47 Dose: Not Given Documented by: Nystatin (Nystatin) 500,000 unit PO BID [facility] Last Admin: 03/08/20 06:47 Dose: Not Given Documented by: Oxycodone HCl (Oxyir) 5 mg PO Q6H PRN PRN Reason: pain Prednisone () 5 mg PO DAILYCM [facility] Last Admin: 03/08/20 10:21 Dose: 5 mg Documented by: Pregabalin (Lyrica) 50 mg PO BID [facility] Last Admin: 03/08/20 10:21 Dose: 50 mg Documented by: Senna (Senokot) 1 tablet PO BID [facility] Last Admin: 03/08/20 06:46 Dose: Not Given Documented by: Sevelamer Carbonate (Renvela) 800 mg PO TIDCM [facility] Last Admin: 03/08/20 10:13 Dose: 800 mg Documented by: Sodium Chloride () 10 - 40 ml IV UD PRN PRN Reason: SALINE FLUSH Last Admin: 03/08/20 10:16 Dose: 10 ml Documented by: Sodium Chloride ([place] Nasal [place]) 2 spray NASAL DAILY PRN PRN PRN Reason: SINUSITIS Discharge Diet: Low fat/ Low Cholesterol, 2000 mg Sodium Diet, Renal Diet Discharge Activity: Return to Normal Activity Home Medications: Medications to take at Discharge Hydroxychloroquine [Plaquenil] 200 mg PO BID 10/01/16 Sevelamer Carbonate [Renvela] 800 mg PO TID 08/12/18 CycloSPORINE Ophthalmic [Restasis Ophthalmic] 1 drp EACH EYE BID 04/18/19 Docusate Sodium 100 mg PO BID PRN PRN 04/18/19 Ergocalciferol (Vitamin D2) [Vitamin D2] 50 mcg PO QMONTH 04/18/19 Montelukast [Singulair] 1 tab PO QHS 04/18/19 Nifedipine [Nifedipine ER] 90 mg PO DAILY 04/18/19 Ondansetron [Zofran Odt] 4 mg PO Q8H PRN PRN 04/18/19 Acetaminophen [Tylenol] 1,000 mg PO TID PRN 04/30/19 Fluticasone 0.05% [Flonase Nasal [place]] 2 spray NASAL BID 04/30/19 Atorvastatin Calcium [Lipitor] 20 mg PO QHS 06/02/19 Clonazepam [Klonopin] 1 mg PO BID PRN 06/02/19 Darbepoetin Ganesh in Polysorbat [Aranesp] 40 mcg IJ TU 06/02/19 Folic Acid/Vitamin B Comp W-C [Nephrocaps, Renaphro] 1 cap PO DAILY 06/02/19 Lactobacillus Acidophilus [Acidophilus] 1 ea PO DAILY 06/02/19 Nut.tx.impaired Renal Fxn,Soy [Novasource Renal 2 Will] 237 ml PO BID 06/02/19 Sennosides [Senna] 8.6 mg PO BID 06/02/19 Clonidine Patch [Catapres-Tts2] 0.2 mg TRANSDERM. Q7D patch 06/07/19 Duloxetine Hcl [Cymbalta] 60 mg PO DAILY cap 06/07/19 Famotidine 10 mg PO DAILY #1 tab 06/07/19 Glucagon 1 mg IM .X1 PRN #1 syringe 06/07/19 Menthol/Lanolin/Calamine/Znox [Calmoseptine Ointment] 1 applic TOPICAL BID tube 06/07/19 Metoclopramide HCl [Reglan] 5 mg PO BID #0 06/07/19 Nepro Liquid [Nepro Carb Steady] 120 ml PO 4X/DAY liquid 06/07/19 Sodium Chloride 0.65% [[place] Nasal [place]] 2 spray NASAL DAILY PRN PRN spray.btl 06/07/19 Lidocaine [Lidoderm Patch] 1 patch TOPICAL DAILY #30 patch 06/09/19 bisacodyl 10 mg rectal suppository 10 mg RC DAILY PRN 08/02/19 heparin (porcine) 5,000 unit/mL injection syringe 5,000 unit SC TID 08/02/19 magnesium hydroxide 400 mg/5 mL oral suspension 30 ml PO DAILY PRN ml 08/02/19 nystatin 500,000 unit tablet 500,000 unit PO BID tab 08/02/19 oxycodone 5 mg tablet 5 mg PO Q6H PRN tab 08/02/19 prednisone 5 mg tablet 5 mg PO DAILY 08/02/19 methylphenidate HCl 10 mg tablet 10 mg PO DAILY 10/31/19 Carvedilol [Coreg] 12.5 mg PO BID 03/07/20 Pregabalin [Lyrica] 50 mg PO BID 03/07/20 Sucroferric Oxyhydroxide [Velphoro] 500 mg PO TID 03/07/20 Xyzal 5 mg PO QHS 03/07/20 Primary Care Physician: Mitchell Bowen Chi, MD [Primary Care Provider] - Please follow up with your Primary Care Physician in: 1-2 weeks Please Follow Up With: Arline Ambriz DO When: as directed Please Follow Up With: Transplant team When: as directed Please Follow Up With: Cesar Morales MD When: as directed Disposition: Home Minutes spent on discharge:: 35 Patient Condition:: Stable Medical Necessity - Tobacco Use Smoking Status: Never smoker Tobacco Use: Non-smoker Meaningful Use Info Meaningful Use Diagnoses (Choose all that apply): None applicable <Lele Garcia E - Last Filed: 03/08/20 12:52> Discharge Date and Diagnosis - Primary Discharge Diagnosis Acute Problems: Active Problems (Last Reviewed 10/30/19 @ 11:57 by Gabriella Mansfield) ST segment changes on electrocardiogram (Acute) - Secondary Discharge Diagnosis Chronic Problems: Chronic Problems (Last Reviewed 10/30/19 @ 11:57 by Gabriella Mansfield) History of left heart catheterization (Chronic 03/08/20) No recommendations -> Normal findings. Pt is at low risk for renal transplant. Manual sheath removal. d/c plavix. 03/08/2020 per STACY @ [facility] revision of right hip arthroplasty (Chronic 05/10/19) Acetabular component only: per Dr. Allen Bella @ [facility] for infection Anemia of chronic renal failure, stage 5 (Chronic) Anxiety and depression (Chronic) Chronic prescription benzodiazepine use (Chronic) Chronic steroid use (Chronic) for SLE Hypoglycemia (Chronic) ocassional - suspect related to poor apetite and intake and also to some of her medications. Cevimeline has been discntinued because of this Allergic rhinitis (Chronic) Prolonged QT interval (Chronic) Presence of surgically created arteriovenous shunt for hemodialysis (Chronic ~11/2017) Status post insertion of dialysis catheter (Chronic) Uncontrolled hypertension (Chronic) ESRD (end stage renal disease) on dialysis (Chronic) Nonrheumatic mitral (valve) insufficiency (Chronic) this was not mentioned on an ECH done in January of 2018 Secondary pulmonary arterial hypertension (Chronic) PA systolic estimated at 31 mmHg in January 2018, down from 50 in the past. Non-rheumatic tricuspid valve insufficiency (Chronic) Trivial on echocardiogram done in January 2018 Narcolepsy (Chronic) Lupus nephritis (Chronic) Status post kidney and liver biopsy (fatty liver) -now with end-stage renal disease on hemodialysis Degenerative disc disease, cervical (Chronic) Cervical spondylosis (Chronic) Diabetes mellitus, type II (Chronic) no longer requiring any medications SLE (systemic lupus erythematosus) (Chronic) Hospital Course and Treatment Summary of Care Provided: Hospitalist note: Discharge summary above reviewed and I concur with above discharge treatment plan. Patient was admitted for abnormal stress echocardiogram and EKG changes for preoperative evaluation for kidney transplant. She was found to have abnormal cardiac enzymes. Troponin was 0.583. She underwent cardiac catheterization that revealed normal coronary arteries without evidence of significant CAD that requires interventions. Her vital signs are stable. Patient denied any chest pain during his hospital stay. Patient received hemodialysis for end-stage renal disease. She was discharged home in a stable medical condition, continued on her previous home medications without any changes, recommended follow-up with PCP in 1 to 2 weeks, follow-up with cardiology as scheduled as well as nephrology. - Physical Exam General: Alert, Oriented x3, Cooperative, No apparent distress. HEENT: Atraumatic, PERRLA, EOMI. Neck: Supple, No JVD, Negative Carotid Bruits, Trachea Midline, Thyroid Normal. Lungs: Clear to auscultation, Normal air movement, No rhonchi, No wheeze, No rales. Cardiovascular: Regular rate, Regular Rhythm, Normal S1, Normal S2, PMI Normal. Abdomen: Bowel Sounds Present, Soft, Non Tender, Non-Distended, No Hepato-splenomegaly. Extremities: No clubbing, No cyanosis, No edema Skin: No rashes, No breakdown Neurological: Cranial nerves are intact, neuro grossly intact Vital Signs are stable. This note was generated with Seget[employer] software. It may contain incorrect words, spelling, and punctuation that were not noted in checking the note before signing. - Physical Exam Vitals/I&O's: Vital Signs Temp Pulse Resp BP Pulse Ox 97.3 F L 89 18 130/84 H 96 03/08/20 10:23 03/08/20 11:00 03/08/20 11:00 03/08/20 11:00 03/08/20 11:00 Oxygen Delivery Method Room Air Weight: 145 lb 8.081 oz Body Mass Index (BMI) 23.4 Finger Stick Blood Glucose 116 Intake and Output for Last 24 Hours 03/06/20 03/07/20 03/08/20 23:59 23:59 23:59 Intake Total 1205 / 1205 262.75 / 262.75 Balance 1205 / 1205 262.75 / 262.75 Laboratory Results 03/07/20 15:08: POC Glucose 100 03/07/20 15:30: WBC 8.5, RBC 3.47 L, Hgb 12.2, Hct 37.8, MCV 108.9 H, MCH 35.2 H, MCHC 32.3, RDW Std Deviation 59.4 H, RDW Coeff of Jah 15.1 H, Plt Count 203, MPV 9.7, Immature Gran % (Auto) 1.100 H, Neut % (Auto) 79.9 H, Lymph % (Auto) 10.3 L, Wharton % (Auto) 8.3, Eos % (Auto) 0.0, Baso % (Auto) 0.4, Absolute Neuts (auto) 6.8, Absolute Lymphs (auto) 0.87, Nucleated RBC % 0 03/07/20 15:30: Sodium 137, Potassium 5.0, Chloride 99, Carbon Dioxide 28.0, BUN 63 H, Creatinine 9.29 H*, Estim Creat Clear Calc 6.46, Est GFR (MDRD) Af Amer 6 L, Est GFR (MDRD) Non-Af 5 L, BUN/Creatinine Ratio 6.8 L, Glucose 140 H, Calcium 9.7, Phosphorus 3.8, Albumin 3.2 03/07/20 15:30: PT 12.1, INR 0.9, APTT 22.2 L 03/07/20 15:30: Troponin I 0.583 H 03/07/20 22:28: POC Glucose 96 03/08/20 05:55: PT 12.0, INR 0.9 03/08/20 06:44: POC Glucose 95 03/08/20 11:36: POC Glucose 158 H Current Medications Acetaminophen (Tylenol) 1,000 mg PO TID PRN PRN Reason: Pain Score 1-10/10 Artificial Tears (Tears Naturale, Artificial Tears) 0 drop OPHTHALMIC Q2H PRN PRN PRN Reason: DRY EYES Atorvastatin Calcium (Lipitor) 20 mg PO QHS [facility] Last Admin: 03/07/20 21:22 Dose: Not Given Documented by: Bisacodyl (Dulcolax) 10 mg RECTAL DAILY PRN PRN Reason: Constipation Carvedilol (Coreg) 12.5 mg PO BIDCM [facility] Last Admin: 03/08/20 06:50 Dose: 12.5 mg Documented by: Clonazepam (Klonopin) 1 mg PO BID PRN PRN Reason: ANXIETY Last Admin: 03/07/20 22:20 Dose: 1 mg Documented by: Clonidine HCl (Catapres-Tts2) 0.2 mg TRANSDERM. Q7D [facility] Last Admin: 03/07/20 16:38 Dose: Not Given Documented by: Dextrose (D50w Syringe) 0 gm IV X1 PRN; Protocol PRN Reason: Hypoglycemia Docusate Sodium (Colace) 100 mg PO BID PRN PRN PRN Reason: Constipation Duloxetine HCl (Cymbalta) 60 mg PO DAILY [facility] Last Admin: 03/08/20 10:13 Dose: 60 mg Documented by: Famotidine (Pepcid) 10 mg PO DAILY [facility] Last Admin: 03/08/20 06:50 Dose: 10 mg Documented by: Fluticasone Propionate (Flonase Nasal [place]) 2 spray NASAL BID [facility] Last Admin: 03/08/20 10:11 Dose: 2 sprays Documented by: Glucagon () 1 mg IM .X1 PRN PRN Reason: Hypoglycemia Heparin Sodium (Beef Lung) (Heparin 500 Unit/5 Ml (100/Ml)) 500 unit IV UD PRN PRN Reason: HEPARIN FLUSH Heparin Sodium (Porcine) (Heparin Na) 5,000 unit SC Q12 [facility] Last Admin: 03/08/20 06:46 Dose: Not Given Documented by: Hydroxychloroquine Sulfate (Plaquenil) 200 mg PO BIDCM [facility] Last Admin: 03/08/20 10:12 Dose: 200 mg Documented by: Sodium Chloride () 1,000 mls @ 15 mls/hr IV .Q48H [facility] Last Infusion: 03/08/20 08:20 Dose: 0 mls/hr Documented by: Insulin Human Lispro (Humalog Kwikpen (Bkc)) 0 unit SC ACHS [facility]; Protocol Last Admin: 03/08/20 06:45 Dose: Not Given Documented by: Labetalol HCl (Trandate) 5 mg IV X1 PRN PRN Reason: SBP > 160 prior to sheath pull Stop: 03/10/20 07:47 Lactobacillus Acidophilus (Acidophilus) 1 tablet PO DAILY [facility] Last Admin: 03/08/20 10:14 Dose: Not Given Documented by: Loratadine (Claritin) 5 mg PO QHS [facility] Last Admin: 03/07/20 22:20 Dose: 5 mg Documented by: Methylphenidate HCl (Ritalin (G)) 10 mg PO DAILY [facility] Last Admin: 03/08/20 10:15 Dose: Not Given Documented by: Metoclopramide HCl (Reglan) 5 mg PO BID [facility] Last Admin: 03/08/20 10:13 Dose: 5 mg Documented by: Montelukast Sodium (Singulair) 10 mg PO QHS [facility] Last Admin: 03/07/20 21:23 Dose: Not Given Documented by: Multivit/Ca Carb/B Cmplx/FA/Prenat (Nephrocaps, Renaphro) 1 capsule PO DAILY [facility] Last Admin: 03/08/20 10:13 Dose: 1 capsule Documented by: Neomycin/Polymyxin/Dexamethasone (Maxitrol) 1 applic OPHTHALMIC BID [facility] Last Admin: 03/08/20 10:14 Dose: 1 applic Documented by: Nifedipine (Procardia Xl) 90 mg PO DAILY [facility] Last Admin: 03/08/20 06:51 Dose: Not Given Documented by: Nutritional Formula (Nepro Carb Steady) 120 ml PO 4X/DAY [facility] Last Admin: 03/08/20 06:47 Dose: Not Given Documented by: Nystatin (Nystatin) 500,000 unit PO BID [facility] Last Admin: 03/08/20 06:47 Dose: Not Given Documented by: Oxycodone HCl (Oxyir) 5 mg PO Q6H PRN PRN Reason: pain [facility] () [facility] Last Admin: 03/08/20 10:21 Dose: 5 mg Documented by: Pregabalin (Lyrica) 50 mg PO BID [facility] Last Admin: 03/08/20 10:21 Dose: 50 mg Documented by: Nikita (Senokot) 1 tablet PO BID ENRIQUE Last Admin: 03/08/20 06:46 Dose: Not Given Documented by: Sevelamer Carbonate (Renvela) 800 mg PO TIDCM ENRIQUE Last Admin: 03/08/20 10:13 Dose: 800 mg Documented by: Sodium Chloride () 10 - 40 ml IV UD PRN PRN Reason: SALINE FLUSH Last Admin: 03/08/20 10:16 Dose: 10 ml Documented by: Sodium Chloride ([place] Nasal [place]) 2 spray NASAL DAILY PRN PRN PRN Reason: SINUSITIS Disposition: Home Minutes spent on discharge:: 26 Patient Condition:: Stable Meaningful Use Info Meaningful Use Diagnoses (Choose all that apply): None applicable Inpatient E&M: 68617 [facility]
--- NOTE | 2020-03-08 12:48 | NURSING ---
Ambulated in hallway, voices no concerns. Dressing to right groin D&I.
== END 2020-03-08 13:02 | disposition home or self-care (01) | DRG 286 ==
LOC: PCU 03-08 07:08
PROVIDERS: Admitting Provider Internal Medicine; PCP Family Medicine Geriatric Medicine; Referring Provider Internal Medicine; Visit Provider Hospitalist
DX: R94.39 Abnormal result of other cardiovascular function study (principal); N18.6 End stage renal disease; I12.0 Hypertensive chronic kidney disease with stage 5 chronic kidney disease or end stage renal disease; E11.22 Type 2 diabetes mellitus with diabetic chronic kidney disease; M32.14 Glomerular disease in systemic lupus erythematosus; Z76.82 Awaiting organ transplant status; R74.8 Abnormal levels of other serum enzymes; D63.1 Anemia in chronic kidney disease; I27.21 Secondary pulmonary arterial hypertension; I36.1 Nonrheumatic tricuspid (valve) insufficiency; I34.0 Nonrheumatic mitral (valve) insufficiency; E78.5 Hyperlipidemia, unspecified; E83.39 Other disorders of phosphorus metabolism; G47.419 Narcolepsy without cataplexy; F32.9 Major depressive disorder, single episode, unspecified; F41.9 Anxiety disorder, unspecified; Z79.52 Long term (current) use of systemic steroids; Z79.899 Other long term (current) drug therapy; Z99.2 Dependence on renal dialysis; Z96.643 Presence of artificial hip joint, bilateral
CPT/HCPCS: 36415; 80069; 82962; 84484; 85025; 85610; 85730; 93005; 93017; 93350; 93458; 97110; 97166; 97802; J7030; J7040; A4216; C1769; C1894; Q9967

== ENCOUNTER → 2020-03-14 16:24 | Outpatient (CLI) | payer MEDICARE, MEDICAID, SELFPAY ==
[2020-03-14 14:22] VITALS: BMI 23.4
[2020-03-21 05:49] LABS: HPV APTIMA, High Risk Negative (Negative)
== END ==
PROVIDERS: PCP Family Medicine Geriatric Medicine; Referring Provider Nurse Practitioner Women's Health; Visit Provider Nurse Practitioner Women's Health
DX: Z12.4 Encounter for screening for malignant neoplasm of cervix (principal)
CPT/HCPCS: 87624; 88175; G0145

== ENCOUNTER → 2020-04-11 10:53 | Outpatient (CLI) | payer MEDICARE, MEDICAID, SELFPAY ==
[2020-03-14 14:22] VITALS: BMI 23.4
== END ==
PROVIDERS: PCP Family Medicine Geriatric Medicine; Referring Provider Physician Assistant Medical; Visit Provider Physician Assistant Medical
DX: R00.0 Tachycardia, unspecified (principal); M48.02 Spinal stenosis, cervical region; R53.83 Other fatigue; E11.22 Type 2 diabetes mellitus with diabetic chronic kidney disease; N18.4 Chronic kidney disease, stage 4 (severe); G83.20 Monoplegia of upper limb affecting unspecified side
CPT/HCPCS: 93225; 93226; 97110

== ENCOUNTER 2020-04-11 15:30 | Outpatient (RCR) | payer MEDICARE, MEDICAID, SELFPAY ==
--- NOTE | 2019-10-05 09:56 | HP.PTEVAL ---
Patient's Visit Information PAVITHRA PAINTER is a 49 year old F referred to Physical Therapy by Mitchell Bowen MD with a diagnosis of GENERAL WEAKNESS AND DEBILITY (ALSO CERVCIAL SPINAL STENOSIS ON ORDER). Date of Evaluation: 10/05/19 Physical Therapist: Maureen Solis PT, Cert MDT - Visit Plan Frequency: 2x /Week Duration: 4-6 Weeks Plan: POSTURE CORRECTION/STRENGTHENING, INSTRUCTION IN APPROPRIATE BODY MECHANICS AND ACTIVITY MODIFICATIONS. DLS STARTING WITH A NEUTRAL SPINE PROGRESSING ROM TOLERATED. SHAN LE ROM, STRETCHING AND STRENGTHENING. HEP INSTRUCTION. - Subjective Findings: Disability: YES. Present symptoms: PATIETN DENIES NECK ISSUES OR TESTING OR ANY SPECIFIC DESIRE FOR TREATMENT OF HER NECK. SHE REPORT SHE IS VERY DECONDITIONED FROM MULTIPLE COMPLICATIONS WITH HER RIGHT HIP. SHE REPORTS SHE HAD A R THR 2002 AND IT BECAME INFECTED MARCH 2019. SHE HAD A REVISION MARCH 2019 AND LATER A HARDWARE CHANGE APR 2019 AND WAS IN REHAB UNTIL 2018. HOME HEALTH UNTIL A COUPLE WEEKS AGO. CURRENTLY SHE REPORTS RIGHT HIP PAIN, FATIGUE AND INFLEXABILITY. ALSO C/O POOR GAIT AND GENERALIZED WEAKNESS. Pain Scale: WORST 6/10, LEAST 2/10. Currently: 2/10. Worse: STANDING, SITTING, RIGHT SDLY, OVER ACTIVITY, WALKING. Better: REPOSITIONING, RESTING, MAYBE TYLONOL. Disturbed sleep: YES. Gait: PATIENT REPORTS SHE HOBBLES. SHE REPORTS IT HAS DEFINATELY GOT BETTER BUT NOT VERY COMFORTABLE GOING OUTSIDE AND PARANOID ABOUT SLIPPING. WALKS AROUND THE HOUSE WITHOUT AN ASSISTIVE DEVICE BUT USES A CANE OUT OF HER HOME. Imaging: LATEST IMAGING OF RIGHT HIP IN AUG SHOWS THAT IT IS OK PER PATIENT REPORT. PMH: CHRONIC KIDNEY DISEASE STAGE 4 DUE TO TYPE II DIABETES MELLITUS. LUPUS, NARCALEPSY, HYPOGLYCEMIA, ARTHRITIS, FIBROMYALGIA, HTN. SHAN THR'S NOW. LEFT 2002. OTHER: PATIENT REPORTS SHE HAS AN OT ORDER TOO FOR HER UE'S AND SHE IS GOING TO HOLD ON THAT BECAUSE SHE IS WAITING ON ANOTHER RIGHT ARM SURGERY. SHE REPORTS SHE WAS SUPPOSED TO HAVE IT THIS WEEK BUT SHE HAD PNEUMONIA SO SHE HAD TO CANCEL. *PATIENT DENIES HAVING ANY RESTRICTIONS EXCEPT SHE WAS TOLD NOT TO SIT ON THE FLOOR WITH HER LEGS UP UNDERNEATH HER AND NOT TO TWIST HER LEG BEHIND HER AND OUT TO THE SIDE DUE TO TOO MUCH SOFT TISSUE DAMAGE FROM THE DISLOCATIONS. - Objective Sitting/Standing Posture: POOR. REDUCED LORDOSIS AND FORWARD HEAD. NO TORTICOLIS. Active Correction of posture: BETTER. Other Observations: PATIENT AMBULATES INDEP'LY INTO PT WITH A QUAD CANE IN HER RIGHT UE. CADANCE IS SLOW WITH A LIMP ON THE RIGHT LE. NO LOB. INDEP TRANSFER SIT TO STAND WITHOUT UE ASSIST BUT MOST OF WEIGHT IS ON LLE. Motor deficit: LLE GROSLY 4/5 WITH MMT'ING. LLE GROSSLY 4-/5 WITH MMT'ING EXCEPT RIGHT HIP 3+/5. I PROCEEDED CAREFULLY WITH MMT'ING DUE TO EXTENSIVE RECENT HISTORY WITH RIGHT HIP. Sensory deficit: SHAN LE LIGHT TOUCH SENSATION IS INTACT AND SYMMETRICAL. ROM deficit: SAHN HIP ROM IS WFL AND TESTED CAREFULLY TODAY. HIP FLEXION NOT TESTED PAST 90 DEG. Core strength: POOR. Palpation: SENSATIVE TO THE TOUCH AROUND RIGHT HIP INCISION. ALSO SKIN SENSATIVITY NEAR TAILBONE WHERE SHE HAD PRESSURE SORES. OTHER: SLS TESTING: PATIENT IS ABLE TO BALANCE ON HER LLE X APPROX 12 SEC WITHOUT UE ASSIST AND ON HER RIGHT LE X 5 SEC WITHOUT UE SUPPORT. - Goals Goal 1:: PATIENT WILL BE INDEP AND SAFE WITH GAIT ON LEVEL SURFACES AND UP AND DOWN STEPS WITH LEAST ASSISTIVE DEVICE Goal Time Frame: 4-6 Weeks Goal 2:: INCREASE FUNCTIONAL STRENGTH OF TRUNK AND SHAN LE'S TO EASE ADL'S Goal Time Frame: 4-6 Weeks Goal 3:: PATIENT WILL BE INDEP WITH A HEP FOR CONTINUED IMPROVEMENT ONCE FORMAL PHYSICAL THERAPY CONCLUDES Goal Time Frame: 4-6 Weeks - Rehabilitation Potential Rehabilitation Potential: Poor - Anticipated Interventions Patient/Client Instruction: Educate patient on: Condition, Plan of Care, Risk Factors, Benefits of Fitness Program For the Purpose of:: To improve self management Therapeutic Exercise to Include: Strength training, Endurance training, Balance training, Postural training, Gait and locomotor training For the Purpose of:: To improve muscle performance and motor function, To increase tolerance to activity/condition/position, To improve ability of physical actions for home/community/work/leisure, To improve gait and locomotor functions Thank you for the opportunity to evaluate your patient. For Medicare and Medicare HMO plans, please review the plan of care and approve it. It will need to be FAXED BACK to us at [phone] for Medicare purposes. For Medicare only, by signing this I certify the plan of care. Please let me know if there are questions or concerns regarding this plan of care. Physician Signature: Date:
--- NOTE | 2019-11-09 13:23 | HP.PTREVAL ---
Mitchell Bowen MD, It has been my pleasure to treat PAVITHRA PAINTER over the last 6 visits for GENERAL WEAKNESS AND DEBILITY (ALSO CERVCIAL SPINAL STENOSIS ON ORDER). Please see the progress note below for an update on the physical therapy plan of care! Subjective: RELEASED FROM [facility] LAST NIGHT. 24 HOUR ADMIT FOR ABNORMAL EKG DURING PRE-SX TESTING FOR ARM. FAR PHYSICAL THERAPY GOES SHE REPORTS SHE HAS DEFINATELY IMPROVED AND NEEDS TO CONTINUE BUT BEING SICK HAS EFFECTED HER PROGRESS. HAS MISSED SESSIONS ADN HOME EX'S DUE TO SINUS INFECTION AND HOSPITAL ADMIT. GRAFT IN ARM OR CHEST IS GOING TO BE ATTEMPTED NEXT WEDNESDAY AND THIS WILL LIMIT HER UPPER ARM EX'S. PATIENT REPORTS THAT PRIOR TO GETTING SICK SHE WAS DEFINATELY GETTING BETTER IN TERMS OF STRENGTH, MOBILITY AND SOME FLEXABILITY. RIGHT HIP INJECTIONS FROM DR. LANGLEY ABOUT 3 WEEKS AGO BUT INCISION AREA IS RADIAL DRILL PRESS OPERATOR FOR PLASTIC. ALSO RADIAL DRILL PRESS OPERATOR FOR PLASTIC AROUND TAILBONE. Objective/Function: PATIENT WAS SEEN TODAY FOR RE-ASSESSMENT OF PROGRESS TOWARD THE SET PT GOALS AND THE NEED FOR FURTHER PHYSICAL THERAPY VS READINESS FOR DISCHARGE. SHE WAS MAKING PROGRESS WITH PT UNTIL GETTING SICK AND THEN BEING HOSPITALIZED. SHE HAS MAINTAINED SOME OF HER IMPROVEMENT BUT PROGRESS DEFINATELY SLOWED DOWN. UPON EXAM TODAY: PATIENT AMBULATES INDEP'LY INTO PT WITHOUT ANY ASSISTIVE DEVICES OR LOB TODAY. GOOD CADANCE. INDEP TRANSFER SIT TO STAND WITHOUT UE ASSIST. Motor deficit: LLE GROSLY 4/5 WITH MMT'ING. LLE GROSSLY 4-/5 WITH MMT'ING EXCEPT RIGHT HIP 3+/5. I PROCEEDED CAREFULLY WITH MMT'ING DUE TO EXTENSIVE RECENT HISTORY WITH RIGHT HIP. RIGHT HIP IR IS ESPECIALLY WEAK AND RIGHT HIP EXTERNAL ROTATION IS QUITE LIMITED. RIGHT HIP FLEXION TO 110 DEG NOW. Sensory deficit: SHAN LE LIGHT TOUCH SENSATION IS INTACT AND SYMMETRICAL. Core strength: POOR. Palpation: SENSATIVE TO THE TOUCH AROUND RIGHT HIP INCISION. ALSO SKIN SENSATIVITY NEAR TAILBONE WHERE SHE HAD PRESSURE SORES. OTHER: SLS TESTING: PATIENT IS ABLE TO BALANCE ON HER LLE X APPROX 12 SEC WITHOUT UE ASSIST AND ON HER RIGHT LE X 5 SEC WITHOUT UE SUPPORT. LUMBAR MVMT LOSS: FLEX - NIL. EXT - MOD. RSG - MIN. LSG - MIN Plan Plan: HOLD THER EX INVOLVING UE'S DUE TO UPCOMING PRCEDURE. PATIENT TO BRING ORDER FROM SURGEON DOING GRAFT OK'ING RESUMPTION OF LOWER BODY PT NEXT VISIT. WHEN OK'D - RESUME PT 2X'S A WEEK X 6-8 WKS. POSTURE CORRECTION/STRENGTHENING, INSTRUCTION IN APPROPRIATE BODY MECHANICS AND ACTIVITY MODIFICATIONS. DLS STARTING WITH A NEUTRAL SPINE PROGRESSING ROM TOLERATED. SHAN LE ROM, STRETCHING AND STRENGTHENING. HEP INSTRUCTION. Goals Goal 1:: PATIENT WILL BE INDEP AND SAFE WITH GAIT ON LEVEL SURFACES AND UP AND DOWN STEPS WITH LEAST ASSISTIVE DEVICE Goal Time Frame: 4-6 Weeks Goal Progress: Progressing Goal 2:: INCREASE FUNCTIONAL STRENGTH OF TRUNK AND SHAN LE'S TO EASE ADL'S Goal Time Frame: 4-6 Weeks Goal Progress: Progressing Goal 3:: PATIENT WILL BE INDEP WITH A HEP FOR CONTINUED IMPROVEMENT ONCE FORMAL PHYSICAL THERAPY CONCLUDES Goal Time Frame: 4-6 Weeks Goal Progress: Progressing Anticipated Interventions Patient/Client Instruction: Educate patient on: Condition, Plan of Care, Risk Factors, Benefits of Fitness Program For the Purpose of:: To improve self management Therapeutic Exercise to Include: Strength training, Endurance training, Balance training, Postural training, Gait and locomotor training For the Purpose of:: To improve muscle performance and motor function, To increase tolerance to activity/condition/position, To improve ability of physical actions for home/community/work/leisure, To improve gait and locomotor functions Please do not hesitate to contact me at [phone] by phone or if you have questions or concerns regarding this new plan of care! Sincerely, Maureen Solis, PT, Cert MDT
--- NOTE | 2019-12-07 13:39 | HP.PTREVAL ---
Mitchell Bowen MD, It has been my pleasure to treat PAVITHRA PAINTER over the last 12 visits for GENERAL WEAKNESS AND DEBILITY (ALSO CERVCIAL SPINAL STENOSIS ON ORDER). Please see the progress note below for an update on the physical therapy plan of care! Subjective: PATIENT REPORTS INCRESASED FATIGUE TODAY. STATES SHE WALKED HER DOG FOR THE FIRST TIME ALONE AND SHE WAS PRETTY WIPED AFTER. Objective/Function: PATIENT WAS SEEN TODAY FOR RE-ASSESSMENT OF PROGRESS TOWARD THE SET PT GOALS AND THE NEED FOR FURTHER PHYSICAL THERAPY VS READINESS FOR DISCHARGE. SHE IS MAKING SLOW PROGRESS OVER-ALL AND IS A GOOD CANDIDATE TO CONTINUE PT. UPON EXAM TODAY: PATIENT AMBULATES INDEP'LY INTO PT WITHOUT ANY ASSISTIVE DEVICES OR LOB TODAY. GOOD CADANCE. INDEP TRANSFER SIT TO STAND WITHOUT UE ASSIST BUT DIFFICULT. Motor deficit: LLE GROSLY 4/5 WITH MMT'ING. RLE GROSSLY 4-/5 WITH MMT'ING EXCEPT RIGHT HIP 3+/5. I PROCEEDED CAREFULLY WITH MMT'ING DUE TO EXTENSIVE RECENT HISTORY WITH RIGHT HIP. RIGHT HIP IR IS ESPECIALLY WEAK AND RIGHT HIP EXTERNAL ROTATION ROM IS STILL QUITE LIMITED. RIGHT HIP FLEXION TO 110 DEG. Core strength: POOR. LUMBAR MVMT LOSS: FLEX - NIL. EXT - MOD. RSG - MIN. LSG - MIN. PATIENT REPORTS MILD INCREASED LOW BACK PAIN WITH LUMBAR EXT ROM TESTING AND INCREASED RIGHT HIP PAIN WITH LEFT SG TESTING. Plan Plan: CONT PT 2X'S A WK X 10 VISITS FOR GENERAL STRENGTHENING. POSTURE CORRECTION/STRENGTHENING, INSTRUCTION IN APPROPRIATE BODY MECHANICS AND ACTIVITY MODIFICATIONS. TRUNK AND SHAN LE ROM, STRETCHING AND STRENGTHENING. HEP INSTRUCTION. Goals Goal 1:: PATIENT WILL BE INDEP AND SAFE WITH GAIT ON LEVEL SURFACES AND UP AND DOWN STEPS WITH LEAST ASSISTIVE DEVICE Goal Time Frame: 4-6 Weeks Goal Progress: Progressing Goal 2:: INCREASE FUNCTIONAL STRENGTH OF TRUNK AND SHAN LE'S TO EASE ADL'S Goal Time Frame: 4-6 Weeks Goal Progress: Progressing Goal 3:: PATIENT WILL BE INDEP WITH A HEP FOR CONTINUED IMPROVEMENT ONCE FORMAL PHYSICAL THERAPY CONCLUDES Goal Time Frame: 4-6 Weeks Goal Progress: Progressing Anticipated Interventions Patient/Client Instruction: Educate patient on: Condition, Plan of Care, Risk Factors, Benefits of Fitness Program For the Purpose of:: To improve self management Therapeutic Exercise to Include: Strength training, Endurance training, Balance training, Postural training, Gait and locomotor training For the Purpose of:: To improve muscle performance and motor function, To increase tolerance to activity/condition/position, To improve ability of physical actions for home/community/work/leisure, To improve gait and locomotor functions Please do not hesitate to contact me at [phone] by phone or if you have questions or concerns regarding this new plan of care! Sincerely, Maureen Solis, PT, Cert MDT
--- NOTE | 2019-12-28 13:28 | HP.PTREVAL ---
Mitchell Bowen MD, It has been my pleasure to treat PAVITHRA PAINTER over the last 18 visits for GENERAL WEAKNESS AND DEBILITY (ALSO CERVCIAL SPINAL STENOSIS ON ORDER). Please see the progress note below for an update on the physical therapy plan of care! Subjective: PATIENT REPORTS SHE IS VERY TIRED TODAY. STATES OVER-ALL SHE CAN DO MORE STAIRS AND WALK A LITTLE FURTHER. STATES HER LEGS FEEL A LITTLE BIT STRONGER SINCE LAST RE-CHECK AND HER ENDURANCE IS A LITTLE BETTER. STILL STRUGGLING WITH PUSHING OUT WITH HER LEGS AND SIT TO STANDS. LEFT HIP GRINDING IF SIT TO STAND FROM TOO LOW OF A CHAIR. Objective/Function: PATIENT WAS SEEN TODAY FOR RE-ASSESSMENT OF PROGRESS TOWARD THE SET PT GOALS AND THE NEED FOR FURTHER PHYSICAL THERAPY VS READINESS FOR DISCHARGE. SHE IS MAKING SLOW PROGRESS OVER-ALL AND IS A GOOD CANDIDATE TO CONTINUE PT. PATIENT IS AGREEABLE. UPON EXAM TODAY: PATIENT AMBULATES INDEP'LY INTO PT WITHOUT ANY ASSISTIVE DEVICES OR LOB. PATIENT DEMO'S GAIT X 1,020 FEET TODAY IN CLINIC ON LEVEL SURFACES. INCREASED LIMPING ON RIGHT LE LAST 50 FEET. GOOD CADANCE. INDEP TRANSFER SIT TO STAND WITHOUT UE ASSIST BUT DIFFICULT. Motor deficit: LLE GROSLY 4/5 WITH MMT'ING. RLE GROSSLY 4-/5 WITH MMT'ING EXCEPT RIGHT HIP 3+/5. I PROCEEDED CAREFULLY WITH MMT'ING DUE TO EXTENSIVE RECENT HISTORY WITH RIGHT HIP. RIGHT HIP IR IS ESPECIALLY WEAK AND RIGHT HIP EXTERNAL ROTATION ROM IS STILL QUITE LIMITED. RIGHT HIP FLEXION TO 122 DEG. Core strength: POOR. LUMBAR MVMT LOSS: FLEX - NIL. EXT - MOD. RSG - MIN. LSG - MIN. PATIENT REPORTS MILD INCREASED LOW BACK PAIN WITH LUMBAR EXT ROM TESTING AND INCREASED RIGHT HIP PAIN WITH LEFT SG TESTING. TOLERATED EX MACHINES WELL TODAY. NOTICED GETTING ON HIP ABD MACHINE FIRST ALLOWED IMPROVED STRENGTH. STRUGGLED WITH HSC TODAY. Plan Plan: *CHALLENGE PATIENT BUT AVOID PAIN - ESPECIALLY LE SHAN HIP AND KNEE PAIN WITH SIT TO STAND EX'S*. CONT PT 2X'S A WK X 10 VISITS FOR GENERAL STRENGTHENING. POSTURE CORRECTION/STRENGTHENING, INSTRUCTION IN APPROPRIATE BODY MECHANICS AND ACTIVITY MODIFICATIONS. TRUNK AND SHAN LE ROM, STRETCHING AND STRENGTHENING. HEP INSTRUCTION. Goals Goal 1:: PATIENT WILL BE INDEP AND SAFE WITH GAIT ON LEVEL SURFACES AND UP AND DOWN STEPS WITH LEAST ASSISTIVE DEVICE Goal Time Frame: 4-6 Weeks Goal Progress: Progressing Goal 2:: INCREASE FUNCTIONAL STRENGTH OF TRUNK AND SHAN LE'S TO EASE ADL'S Goal Time Frame: 4-6 Weeks Goal Progress: Progressing Goal 3:: PATIENT WILL BE INDEP WITH A HEP FOR CONTINUED IMPROVEMENT ONCE FORMAL PHYSICAL THERAPY CONCLUDES Goal Time Frame: 4-6 Weeks Goal Progress: Progressing Anticipated Interventions Patient/Client Instruction: Educate patient on: Condition, Plan of Care, Risk Factors, Benefits of Fitness Program For the Purpose of:: To improve self management Therapeutic Exercise to Include: Strength training, Endurance training, Balance training, Postural training, Gait and locomotor training For the Purpose of:: To improve muscle performance and motor function, To increase tolerance to activity/condition/position, To improve ability of physical actions for home/community/work/leisure, To improve gait and locomotor functions Please do not hesitate to contact me at [phone] by phone or if you have questions or concerns regarding this new plan of care! Sincerely, Maureen Solis, PT, Cert MDT
--- NOTE | 2020-02-01 12:59 | HP.PTREVAL ---
Dr. Mitchell Bowen MD, It has been my pleasure to treat PAVITHRA PAINTER over the last 27 visits for GENERAL WEAKNESS AND DEBILITY (ALSO CERVCIAL SPINAL STENOSIS ON ORDER). Please see the progress note below for an update on the physical therapy plan of care! Subjective: PATIENT REPORTS SHE FEELS SHE IS GAINING A LITTLE GROUND IN SOME AREAS. I CAN DO TWO FLIGHTS OF STEPS TWICE NOW. MY BACK FEELS STRONGER. I CAN GO LONGER ON THE NUSTEP. PATIENT REPORTS SHE HAS BEEN AFRAID TO WALK OUTSIDE ON THE SIDE WALK BECAUSE OF HAVING PROBLEMS WITH DIZZINESS. SHE IS WORKING WITH HER DOCTORS ON ADJUSTING HER BLOOD PRESSURE MEDICINE. AWAITING A CALL TO GET EZ'TS TO GET EVALUATED TO GET BACK ON KIDNEY TRANSPLANT LIST. FOLLOW UP WITH DR. BOWEN TODAY. PLANS TO TAKE TO DR. BOWEN ABOUT HER KNEE PAIN. Objective/Function: PATIENT WAS SEEN TODAY FOR RE-ASSESSMENT OF PROGRESS TOWARD THE SET PT GOALS AND THE NEED FOR FURTHER PHYSICAL THERAPY VS READINESS FOR DISCHARGE. SHE IS CONTINUING TO MAKE SLOW PROGRESS OVER-ALL AND IS A GOOD CANDIDATE TO CONTINUE PT. PATIENT IS AGREEABLE. UPON EXAM TODAY: PATIENT AMBULATES INDEP'LY INTO PT WITHOUT ANY ASSISTIVE DEVICES OR LOB. PATIENT DEMO'S GAIT X 1,360 FEET TODAY IN CLINIC ON LEVEL SURFACES. INCREASED LLE INTERNAL ROTATION LAST 150 FEET. GOOD CADANCE. INDEP TRANSFER SIT TO STAND WITHOUT UE ASSIST. Motor deficit: LLE GROSLY 4/5 WITH MMT'ING. RLE: HIP FLEX 4-/5, ABD 4-/5, ADD 4-/5, ER 3+/5, IR 3-/5. RIGHT HIP IR IS ESPECIALLY WEAK AND RIGHT HIP EXTERNAL ROTATION ROM IS STILL QUITE LIMITED. RIGHT HIP FLEXION TO 128 DEG. Core strength: POOR. LUMBAR MVMT LOSS: FLEX - NIL. EXT - MIN. RSG - MIN. LSG - MIN. PATIENT DENIES LBP OR HIP PAIN WITH LUMBAR ROM TESTING TODAY. TOLERATED EX MACHINES WELL TODAY. Plan Plan: *CHALLENGE PATIENT BUT AVOID PAIN - ESPECIALLY LE SHAN HIP AND KNEE PAIN WITH SIT TO STAND EX'S*. CONT PT 2X'S A WK X 10 VISITS FOR GENERAL STRENGTHENING. POSTURE CORRECTION/STRENGTHENING, INSTRUCTION IN APPROPRIATE BODY MECHANICS AND ACTIVITY MODIFICATIONS. TRUNK AND SHAN LE ROM, STRETCHING AND STRENGTHENING. HEP INSTRUCTION. Goals Goal 1:: PATIENT WILL BE INDEP AND SAFE WITH GAIT ON LEVEL SURFACES AND UP AND DOWN STEPS WITH LEAST ASSISTIVE DEVICE Goal Time Frame: 4-6 Weeks Goal Progress: Progressing Goal 2:: INCREASE FUNCTIONAL STRENGTH OF TRUNK AND SHAN LE'S TO EASE ADL'S Goal Time Frame: 4-6 Weeks Goal Progress: Progressing Goal 3:: PATIENT WILL BE INDEP WITH A HEP FOR CONTINUED IMPROVEMENT ONCE FORMAL PHYSICAL THERAPY CONCLUDES Goal Time Frame: 4-6 Weeks Goal Progress: Progressing Anticipated Interventions Patient/Client Instruction: Educate patient on: Condition, Plan of Care, Risk Factors, Benefits of Fitness Program For the Purpose of:: To improve self management Therapeutic Exercise to Include: Strength training, Endurance training, Balance training, Postural training, Gait and locomotor training For the Purpose of:: To improve muscle performance and motor function, To increase tolerance to activity/condition/position, To improve ability of physical actions for home/community/work/leisure, To improve gait and locomotor functions Please do not hesitate to contact me at [phone] by phone or if you have questions or concerns regarding this new plan of care! Sincerely, Maureen Solis, PT, Cert MDT
--- NOTE | 2020-03-06 09:51 | HP.OTEVAL_ITS ---
Patient's Visit Information PAVITHRA PAINTER is a 49 year old F, referred to Occupational Therapy by Dr. Mitchell Bowen MD, with a diagnosis of UB weakness. Date of Evaluation: 03/05/20 Occupational Therapist: Traci Black, CESILIAR/Varsha, CHT - Subjective Pt states she is having difficulty with weakness in UB- states she struggles with weakness and limits her with ADLs and IADls. pt would like to increase her UB strength and endurance to increase her ind. with cooking and bathing . Pt states her brother helps with laundry and vaccuming. 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 pt underwent bilateral hip replacements. per doctor note pt insulin dependent. ESKD and reactvating transplant list at [facility] [place] - ADLs Dressing: Overhead shirt, Button shirt, Pants, Socks, Shoes Eating: Use silverware Bathing: Handle washcloth & soap, Wash hair Kitchen: Chop with knife, Open jars, Open bottle caps, Lift gallon of milk, Pour from pitcher, Lift saucepan Comments: brother is helping with laundry and vacuume Comments: pt states laundry is on first floor but they like to hang clothes in the basement to dry- pt states she is unable to carry wet clothes to basement and she has had a home health aide to assist her with this for the past two years. pt states she has t-band orange, green, yellow but. pt's mom lives with her and her brother comes daily from evening to midnight all all weekends. he assist with home mtg. pt states she can do the grocery shopping but only on the days she feels good- hasnt been there in two weeks. - Pain upper trap scapular region from Fibro 5 Pain Intensity Range: 5, 6 - ROM ROM Comments: pt demo UB WFL - Strength Shoulder: Right/left 4-/5 Elbow: right/left 4-/5 Television News Reporter: right 60 left 50 Strength Comments: pt has fistula in left UE. attempting a hero graft in right UE. pt states she had sx in oct. but it was not sucessful. pt has dyalisis wednesday/wed/ wednesday - Sensation Sensation Comments: pt states positional nerve compression- mostly numbness/tingling and tasks several min. to go away - Quick DASH-Disab of Arm,Shoulder& Hand Quick DASH Score: 63.6350 - Goals Goal:: pt will demo a increase in BUE MMT to 4+/5 to increase her ind. with ADls and IADLS by d/c Goal:: pt will report no pain greater than 1/10 with use of BUE with ADLS and IADLS by d/c Goal:: Pt will demo understanding of energy conservation to increase her functional strength for ADLs and IADLS by d/c - Rehabilitation General Assessment: Pt has complicated medical hx. pt struggles with pain and weakness limiting her IND with ADLs and IADLS. pt would benefit from skilled OT services 2x week for 4 weeks to increase pts functional strength for ADLs and IADLs. Today therapist ec. pt on isometic UE ex and given handout pt demo understanding. Therapist will speak with pt on energy conservation moraima. to assist in increasing her endurance for ADLs and IADLs Rehabilitation Potential: Good - Anticipated Interventions Strengthening, Joint Protection/Energy Conservation, Ergonomic Education, ADL Training, Education re assistive Equipment - Visit Plan Frequency: 1-2x /Week Duration: 4 Weeks TEXT: Thank you for the opportunity to evaluate your patient. For Medicare and Medicare HMO plans, please review the plan of care and approve it. It will need to be FAXED BACK to us at [phone] for Medicare purposes. Please let me know if there are questions or concerns regarding this plan of care. Physician Signature: Date:
--- NOTE | 2020-03-12 13:52 | HP.PTDCSUM ---
It has been my pleasure to treat PAVITHRA PAINTER referred by Dr. Mitchell Bowen MD, with the diagnosis of GENERAL WEAKNESS AND DEBILITY (ALSO CERVCIAL SPINAL STENOSIS ON ORDER) for a total of 36 visit(s). Discharge Date: Please see the following information for a summary of their discharge status. Subjective: PATIENT REPORTS HAVING AN ABNORMAL TEST LAST WEEK THAT LED TO HOSPITALIZATION AND A HEART CATH WEDNESDAY. REPORTS EVERYTHING LOOKED OK ON THE HEART CATH. PATIENT REPORTS THAT WHEN SHE GOES FOR WALKS SHE GETS TIRED AND WEAK FASTER THAN USING THE NUSTEP. ABLE TO DO UP TO 20 MIN ON THE NUSTEP LEVEL 5-6. PATIENT REPORTS THE MUSCLE ON THE OUTSIDE OF HER RIGHT THIGH IS NOT GETTING BETTER. PATIENT PLANS TO GET A HEALTH AND WELLNESS MEMBERSHIP HERE AT [employer] TO CONTINUE HER CURRENT EX PROGRAM. RIGHT HIP Pain Intensity (Out of 10): 6 FIBRO Pain Intensity (Out of 10): 6 KNEE Pain Intensity (Out of 10): 6 % Improvement: 70 Objective/Function: PATIENT WAS SEEN TODAY FOR RE-ASSESSMENT OF PROGRESS TOWARD THE SET PT GOALS AND THE NEED FOR FURTHER PHYSICAL THERAPY VS READINESS FOR DISCHARGE. PATIENTS PROGRESS HAS PLATEAUED AND IS APPROPRIATE FOR DISCHARGE TO [facility] EX AT THIS TIME. UPON EXAM TODAY: PATIENT AMBULATES INDEP'LY INTO PT WITHOUT ANY ASSISTIVE DEVICES OR LOB. PATIENT DEMO'S GAIT X 4 LAPS TODAY IN CLINIC ON LEVEL SURFACES. DECREASED CADANCE AND INCREASED LATERAL DEVIATIONS SHAN RIGHT > LEFT STARTING ON 2 LAP. INDEP TRANSFER SIT TO STAND WITHOUT UE ASSIST. Motor deficit: LLE GROSLY 4/5 WITH MMT'ING. RLE: HIP FLEX 4-/5, ABD 4-/5, ADD 4-/5, ER 3+/5, IR 3-/5. RIGHT HIP IR IS ESPECIALLY WEAK AND RIGHT HIP EXTERNAL ROTATION ROM IS STILL QUITE LIMITED. RIGHT HIP FLEXION TO 127 DEG. Core strength: POOR. LUMBAR MVMT LOSS: FLEX - NIL. EXT - MOD. RSG - MIN. LSG - MIN. PATIENT DENIES LBP OR HIP PAIN WITH LUMBAR ROM TESTING TODAY. Goal 1:: PATIENT WILL BE INDEP AND SAFE WITH GAIT ON LEVEL SURFACES AND UP AND DOWN STEPS WITH LEAST ASSISTIVE DEVICE Goal Progress: Goal Met Goal 2:: INCREASE FUNCTIONAL STRENGTH OF TRUNK AND SHAN LE'S TO EASE ADL'S Goal Progress: Not Progressing Goal 3:: PATIENT WILL BE INDEP WITH A HEP FOR CONTINUED IMPROVEMENT ONCE FORMAL PHYSICAL THERAPY CONCLUDES Goal Progress: Goal Met Plan: D/C TO INDEP EX. PATIENT IS RELUCTANT BUT AGREEABLE. If there are questions or concerns regarding this patient's physical therapy, please feel free to call me at [phone]. Thank you for the referral of this patient. Sincerely, Maureen Solis, PT, Cert MDT
[2020-04-02 17:17] LABS: Thyroid Stim Hormone (TSH) 0.68 uIU/mL (0.358-3.74)
[2020-04-03 13:38] LABS: Vitamin D,25 Hydroxy 46.9 ng/mL
== END 2020-04-11 19:00 | disposition home or self-care (01) ==
LOC: OT 15:30
PROVIDERS: PCP Family Medicine Geriatric Medicine; Visit Provider Family Medicine Geriatric Medicine
DX: M48.02 Spinal stenosis, cervical region (principal); R53.83 Other fatigue; I12.9 Hypertensive chronic kidney disease with stage 1 through stage 4 chronic kidney disease, or unspecified chronic kidney disease; E11.22 Type 2 diabetes mellitus with diabetic chronic kidney disease; N18.4 Chronic kidney disease, stage 4 (severe); E55.9 Vitamin D deficiency, unspecified
CPT/HCPCS: 36415; 82306; 84443; 97110; 97162; 97164; 97166

== ENCOUNTER → 2020-04-18 13:24 | Outpatient (CLI) | payer MEDICARE, MEDICAID, SELFPAY ==
[2020-03-14 14:22] VITALS: BMI 23.4
--- NOTE | 2020-04-18 13:27 | RAD_ITS ---
STUDY: X-RAY - LUMBAR SPINE REASON FOR EXAM: Female, 49 years old. degeneration of lumbar intervertebral disc TECHNIQUE: 3 view(s) of the lumbar spine were obtained. COMPARISON: None FINDINGS: Normal lumbar lordosis. There is moderate dextro scoliosis. There is a normal alignment of the vertebrae. No evidence for acute fracture or subluxation.. There is minor narrowing of L4-5 disc space. The soft tissue structures are unremarkable. RAD/Lumbar Spine 2 or 3 Views IMPRESSION: Scoliosis and mild degenerative change. No acute fracture or other significant bony pathology. Electronically Signed: Diogo Hoffmann MD at 20:39 EDT , Service support ,
== END ==
PROVIDERS: PCP Family Medicine Geriatric Medicine; Referring Provider Nurse Practitioner Family; Visit Provider Nurse Practitioner Family
DX: M51.36 Other intervertebral disc degeneration, lumbar region (principal); G83.20 Monoplegia of upper limb affecting unspecified side
CPT/HCPCS: 72100; 97110

== ENCOUNTER 2020-05-07 15:00 | Outpatient (RCR) | payer MEDICARE, MEDICAID, SELFPAY ==
[2020-03-14 14:22] VITALS: BMI 23.4
--- NOTE | 2020-08-13 12:55 | HP.OT.NRP ---
PAVITHRA Rodríguez MADINA was seen in my office for initial evaluation on . The following Plan of Care was established for this patient: Plan: re-reval next visit- This patient was last seen in our office 05/07/20. Pertinent comments regarding their Occupational therapy will appear below: pt was seen for OT and progressing well with strength- pt was d.c as she has kidney transplant sx. pt can get new order to return when able. At this point I will be discontinuing this patient from occupational therapy. I would be happy to see this patient again in the future if found appropriate by the physician. Thank you! Traci Black, OTR/L, CHT
== END 2020-05-07 19:00 | disposition home or self-care (01) ==
LOC: OT 15:00
PROVIDERS: PCP Family Medicine Geriatric Medicine; Referring Provider Family Medicine Geriatric Medicine; Visit Provider Family Medicine Geriatric Medicine
DX: R29.898 Other symptoms and signs involving the musculoskeletal system (principal); M48.02 Spinal stenosis, cervical region; R53.81 Other malaise
CPT/HCPCS: 97110; 97530

== ENCOUNTER 2020-06-03 12:21 | Emergency (ER) | payer MEDICARE, MEDICAID, SELFPAY ==
[2020-03-14 14:22] VITALS: BMI 23.4
[2020-06-03 12:22] VITALS: BP 85/55; PULSE 87; RESP 14; TEMP 36.3; O2SAT 96; BMI 22.4
[2020-06-03 12:33] VITALS: BP 107/63; PULSE 83; RESP 20
--- NOTE | 2020-06-03 12:52 | ED.VIS.GEN ---
History of Present Illness Chief Complaint: Hypotension Informant: Patient Onset: Today Narrative: Patient presents to the ED at the urging of her transplant doctor. She underwent kidney transplant 3 weeks ago at . Patient states she went in today for follow-up on her blood pressure was noted to be low. She is been having some episodes of lightheadedness. She was sent to the ER for IV fluids. She states she did have blood work drawn at her appointment but did not know the results. - Past Medical History (1) Anxiety and depression Status: Chronic (2) Diabetes mellitus, type II Status: Chronic Comment: no longer requiring any medications (3) Lupus nephritis Status: Chronic Comment: Status post kidney and liver biopsy (fatty liver) -now with end-stage renal disease on hemodialysis (4) Narcolepsy Status: Chronic (5) SLE (systemic lupus erythematosus) Status: Chronic (6) Secondary pulmonary arterial hypertension Status: Chronic Comment: PA systolic estimated at 31 mmHg in January 2018, down from 50 in the past. Past Medical History - Allergies and Home Meds Allergies/Adverse Reactions: Allergies LONG Inhibitors Allergy (Verified 06/03/20 12:22) Angioedema adhesive Allergy (Verified 06/03/20 12:22) Rash diphenhydramine Allergy (Verified 06/03/20 12:22) Unknown lisinopril Allergy (Verified 06/03/20 12:22) Angioedema Sulfa (Sulfonamide Antibiotics) Allergy (Verified 06/03/20 12:22) Rash sulfamethoxazole [From Bactrim] Allergy (Verified 06/03/20 12:22) Rash trimethoprim [From Bactrim] Allergy (Verified 06/03/20 12:22) Rash tuberculin, purified protein deriva Allergy (Verified 06/03/20 12:22) Unknown Angioderm Adverse Reaction (Unknown, Uncoded 06/03/20 12:22) Unknown Primary Care Physician: Mitchell Bowen Chi, MD [Primary Care Provider] - Surgical History: - - failed AVF left arm, AVF right arm, carpal tunnel release, BL total hip, kidney transplant Smoking Status: Never smoker - Family History Maternal Family History: Family History (Last Reviewed 03/14/20 @ 14:20 by Rupal Holloway) Mother Hypertension Kidney disease ALS (amyotrophic lateral sclerosis) Father Heart disease Hypertension Kidney disease Diabetes Family History: Reports: Diabetes, High Cholesterol, Heart Disease, Hypertension, Renal Disease, - Paternal Family History: Family History (Last Reviewed 03/14/20 @ 14:20 by Rupal Holloway) Mother Hypertension Kidney disease ALS (amyotrophic lateral sclerosis) Father Heart disease Hypertension Kidney disease Diabetes Family History: Reports: Diabetes, High Cholesterol, Heart Disease, Hypertension, Renal Disease Sibling Family History: Family History (Last Reviewed 03/14/20 @ 14:20 by Rupal Holloway) Mother Hypertension Kidney disease ALS (amyotrophic lateral sclerosis) Father Heart disease Hypertension Kidney disease Diabetes Family History: Reports: Diabetes Review of Systems General: Denies: Chills, Fever Eyes: Denies: Visual changes - bilaterally ENT: Denies: Bilateral ear pain Cardiovascular: Denies: Chest pain Respiratory: Denies: Dyspnea, Cough Gastrointestinal: Denies: Abdominal pain, Vomiting, Diarrhea Genitourinary: Denies: Dysuria Musculoskeletal: Denies: Extremity Pain Skin: Denies: Rash Neurological: Denies: Headache Hematologic: Denies: Easy bruising, Easy bleeding Allergy: Denies: Uticaria Physical Exam Vital Signs/Narrative: Vital Signs Temp Pulse Resp BP Pulse Ox 06/03/20 12:33 83 20 H 107/63 06/03/20 12:22 97.3 F L 87 14 85/55 L 96 Inital Vital Signs reviewed: Yes General: Well nourished, Well developed Head: Normocephalic ENT: Moist mucous membranes Neck: Supple Cardiovascular: Regular rate, Regular rhythm Respiratory: No distress, CTA bilaterally Abdomen: Soft, Nontender Extremities: Nontender Neurological: Alert, Oriented x3 Psychological: Normal affect Diagnostic/Tx/Re-eval Laboratory Results 06/03/20 13:20 Urine Color Yellow Urine Clarity Clear Urine pH 6.0 Ur Specific [place] 1.010 Urine Protein 30 H Urine Glucose (UA) 1000 H Urine Ketones Negative Urine Occult Blood Negative Urine Nitrite Negative Urine Bilirubin Negative Urine Urobilinogen Normal Ur Leukocyte Esterase Negative Urine RBC 0 SEEN Urine WBC 0 SEEN Ur Squamous Epith Cells 0 SEEN Urine Bacteria 0 SEEN Urine Mucus 0 SEEN - Medical Decision Making Patient was given a liter of IV fluids here. Repeat blood pressures are 114/71 and 126/71. She was able to ambulate to the restroom and back without dizziness. I was able to pull up her labs that were drawn at this morning. CBC is unremarkable. Chemistry studies are normal with a BUN and creatinine of 14 and 0.91. Phosphorus is mildly low at 1.2. Magnesium is normal at 1.81. This time patient be discharged home to continue her medication regimen. She will follow-up with her transplant doctor at . ED Disposition - Plan for ED Patient: Disposition: Home or Assisted Living Diagnosis: Hypotension Instructions: ED Low Blood Pressure All Causes Referrals: Mitchell Bowen Chi, MD [Primary Care Provider] - 3-5 Days if not improving
[2020-06-03] MEDS: 0.9% Normal Saline 1,000 ML 999 ML IV (12:58)
[2020-06-03 13:00] VITALS: BP 118/60
[2020-06-03 13:25] LABS: Bacteria 0 SEEN /hpf (None Seen); Mucous, Urine 0 SEEN /hpf (<or=2+); Red Blood Cells-Urine 0 SEEN /hpf (0-5); Squamous Epithelial Cells - UA 0 SEEN /hpf (5-10); White Blood Cells 0 SEEN /hpf (0-5)
[2020-06-03 13:29] LABS: Color, Urine Yellow (Yellow); Glucose, Dipstick 1000 mg/dl (Normal); Ketone-Dipstick Negative (Negative); Leukocyte Esterase-Dipstick Negative /ul (Negative); Nitrite-Dipstick Negative (Negative); Occult Blood-Urine Negative /ul (Negative); Protein-Dipstick 30 mg/dl (Negative); Urine Bilirubin Dipstick Negative (Negative); Urine Clarity Clear (Clear); Urine Urobilinogen Normal (Normal)
[2020-06-03] MEDS: Acetaminophen 500 MG Tablet 1000 MG PO (13:29)
[2020-06-03 14:07] VITALS: BP 114/71
[2020-06-03 14:23] VITALS: BP 126/71; PULSE 87; RESP 26
== END 2020-06-03 14:27 | disposition home or self-care (01) ==
PROVIDERS: Emergency Provider Emergency Medicine; PCP Family Medicine Geriatric Medicine
DX: I95.9 Hypotension, unspecified (principal); F41.9 Anxiety disorder, unspecified; F32.9 Major depressive disorder, single episode, unspecified; E11.9 Type 2 diabetes mellitus without complications; M32.14 Glomerular disease in systemic lupus erythematosus; G47.419 Narcolepsy without cataplexy; I27.21 Secondary pulmonary arterial hypertension; E11.22 Type 2 diabetes mellitus with diabetic chronic kidney disease; K76.0 Fatty (change of) liver, not elsewhere classified; N18.6 End stage renal disease; Z82.49 Family history of ischemic heart disease and other diseases of the circulatory system; Z88.1 Allergy status to other antibiotic agents; Z88.2 Allergy status to sulfonamides; Z88.8 Allergy status to other drugs, medicaments and biological substances; Z94.0 Kidney transplant status; Z99.2 Dependence on renal dialysis
CPT/HCPCS: 81001; 96360; 99285; J7030; A4216

== ENCOUNTER → 2020-06-12 | Outpatient (CLI) | payer MEDICARE, MEDICAID, SELFPAY ==
[2020-06-03 12:22] VITALS: BMI 22.4
--- NOTE | 2020-06-12 16:33 | RAD_ITS ---
STUDY: X-RAY - RIGHT KNEE REASON FOR EXAM: Female, 49 years old. RIGHT KNEE PAIN, NO KNOWN INJURY. TECHNIQUE: 4 view(s) of the knee. COMPARISON: Prior right knee radiographs of 07/03/2014 FINDINGS: A nondestructive sclerotic lesion has developed in the medullary space of the medial femoral condyle consistent with bone infarct. A sclerotic/calcified lesion has developed in the medullary space of the proximal tibial diaphysis consistent with bone infarct. There is a similar pre-existing sclerotic area in the lateral femoral condyle also present on prior exam. Otherwise normal femur, tibia and fibula. Normal proximal tibiofibular articulation. Minimal enthesophyte of the patella. Normal medial femorotibial compartment. Normal lateral femorotibial compartment. Normal patellofemoral articulation. Negative for joint effusion. The soft tissue structures are unremarkable. 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 Pre-existing bone infarct of the medial femoral condyle also present on prior exam. No additional changes. Negative for fracture, dislocation or joint effusion. Negative for substantial arthritic or degenerative changes. Electronically Signed: Jayda Arreguin MD at 19:36 EDT , Service support ,
--- NOTE | 2020-06-12 16:38 | RAD_ITS ---
STUDY: X-RAY - LEFT KNEE REASON FOR EXAM: Female, 49 years old. LEFT KNEE PAIN, NO KNOWN INJURY. TECHNIQUE: 4 view(s) of the knee. COMPARISON: Prior left knee radiographs of 07/03/2014 FINDINGS: Increased sclerosis in the subarticular portion of the lateral femoral condyle without osteochondral defect . Normal visualized proximal tibia and fibula. Normal proximal tibiofibular articulation. Normal medial femorotibial compartment. Normal lateral femorotibial compartment. Normal patellofemoral articulation. There is no demonstrated joint effusion. The soft tissue structures are unremarkable. RAD/Knee 4 or More Views IMPRESSION: Chronic sclerotic lesion in the subarticular portion of the lateral femoral condyle without osteochondral defect. Finding consistent with osteonecrosis/bone infarct without osteochondral defect. This finding present on prior exam of 07/03/2014 and does not appear to be substantially changed. No additional acute bone findings or changes. Negative for major arthritic or degenerative changes. Electronically Signed: Jayda Arreguin MD at 19:42 EDT , Service support ,
== END | disposition home or self-care (01) ==
LOC: RAD 16:32
PROVIDERS: PCP Family Medicine Geriatric Medicine; Referring Provider Family Medicine Geriatric Medicine; Visit Provider Family Medicine Geriatric Medicine
DX: M25.561 Pain in right knee (principal); M25.562 Pain in left knee
CPT/HCPCS: 73564

== ENCOUNTER → 2020-07-02 14:20 | Outpatient (CLI) | payer MEDICARE, MEDICAID, SELFPAY ==
[2020-06-03 12:22] VITALS: BMI 22.4
[2020-07-02 17:09] LABS: Absolute Lymphocyte Count 0.29 X10^3/uL (0.83-4.51); Absolute Neutrophil Count 2.2 X10^3/uL (2.0-7.7); Basophil# 0.01 X10^3/uL; Basophil% 0.3 % (0-1); Hematocrit 49.6 % (37-47); Hemoglobin 15.4 g/dL (12.0-15.0); Lymphocyte # 0.29 X10^3/ul (4.0); Lymphocyte % 10.1 % (19-41); Mean Corpuscular Hgb 32.9 pg (27.0-32.0); Mean Platelet Vol. 10.8 fl (6.2-12.0); Monocyte# 0.27 X10^3/uL; Monocyte% 9.4 % (0-10); NRBC Flagged by Analyzer 0 % (0-5); Neutrophil # 2.21 X10^3/uL (2.7-7.7); Neutrophil % 77.4 % (47-70); POSITIVE DIFFERENTIAL YES; Platelet Count 181 K/mm3 (150-450); RBC Distribution Width CV 16.3 % (11.6-14.6); RBC Distribution Width SD 64.2 fl (35.1-43.9); Red Blood Count 4.68 M/mm3 (4.2-5.4); White Blood Count 2.9 K/mm3 (4.4-11.0)
[2020-07-02 17:22] LABS: Differential Indicated SCAN CRITERIA MET
[2020-07-02 17:49] LABS: ALB/GLOB Ratio 0.9 RATIO (0.9-2.4); AST(SGOT) 96 U/L (15-37); Alanine Aminotransfer ALT/SGPT 69 U/L (13-56); Albumin, Serum 3.2 g/dL (3.2-5.0); Alkaline Phosphatase 114 U/L (45-117); Anion Gap 10 (5-15); BUN 25 mg/dL (7-18); BUN/Creat Ratio 18.5 RATIO (10-20); Calcium,Total 9.1 mg/dL (8.5-10.1); Chloride 105 mmol/L (98-107); Creatinine, Serum 1.35 mg/dL (0.55-1.02); EST Glomerular Filtration Rate 45 mL/min (>60); Est Glom Filt Rate - Afr Amer 54 mL/min (>60); Globulin 3.5 g/dL (2.2-4.2); Glucose 519 mg/dL (74-106); Potassium 4.9 mmol/L (3.5-5.1); Protein, Total 6.7 g/dL (6.4-8.2); Sodium Level 134 mmol/L (136-145); Thyroid Stim Hormone (TSH) 0.13 uIU/mL (0.358-3.74)
[2020-07-03 15:49] LABS: Pathologist Review Reviewed
== END ==
PROVIDERS: PCP Family Medicine Geriatric Medicine; Visit Provider Family Medicine Geriatric Medicine
DX: E11.9 Type 2 diabetes mellitus without complications (principal); I10 Essential (primary) hypertension
CPT/HCPCS: 36415; 80053; 84443; 85025

== ENCOUNTER 2020-07-17 10:43 | Emergency (ER) | payer MEDICARE, MEDICAID, SELFPAY ==
[2020-07-08 13:40] VITALS: BMI 24.5
[2020-07-17 10:45] VITALS: BP 113/77; PULSE 94; RESP 16; TEMP 36.1; O2SAT 98; BMI 24.2
--- NOTE | 2020-07-17 11:25 | EKG12_ITS ---
Test Reason : SOB Blood Pressure : / mmHG Vent. Rate : 090 BPM Atrial Rate : 090 BPM P-R Int : 146 ms QRS Dur : 094 ms QT Int : 348 ms P-R-T Axes : 041 033 144 degrees QTc Int : 425 ms AGE AND GENDER SPECIFIC ECG ANALYSIS Normal sinus rhythm ST elevation consider inferior injury or acute infarct ACUTE IN / STEMI Consider right ventricular involvement in acute inferior infarct Abnormal ECG Confirmed by DK GARCIA, BAM ([id number]), photographic editor GEOVANNA HULL ([id number]) on 07/18/2020 1:00:35 PM Referred By: REY Confirmed By:BEVERLY ROOT MD
--- NOTE | 2020-07-17 11:26 | ED.VIS.GEN ---
History of Present Illness Chief Complaint: Fever Informant: Patient Onset: Yesterday Context: Gradual Onset Timing: Waxes and wanes Quality: 101.7 Current Severity: - - gone Maximum Severity: Moderate Worsened by: nothing in particular Relieved by: tylenol Associated Symptoms: no new sx Narrative: Patient presents with a fever that started last night. She had a renal transplant 2 months ago at [facility] because of renal failure related to her lupus and diabetes. She has been making urine since the transplant. She denies any pain in her abdomen or her transplant site. She has had some occasional dysuria, it is intermittent and not new. She denies any coughing or new trouble breathing but has chronic dyspnea with exertion that she has been told is due to muscular weakness. That is no different. She has had multiple negative Covid tests, the last one was in May, when she had her urethral stent removed, she also had one before her transplant itself. She has not had Covid that she knows of. She has not had any known exposure to it, but gets biweekly blood draws at the outpatient lab locally. She had a bout of diarrhea last night that was loose, nonbloody, nonmelanotic. She has chronic myalgias and arthralgias related to her lupus that are no different. - Past Medical History (1) Fibromyalgia Status: Chronic (2) Anemia of chronic renal failure, stage 5 Status: Chronic (3) Anxiety and depression Status: Chronic (4) Cervical spondylosis Status: Chronic (5) Diabetes mellitus, type II Status: Chronic Comment: no longer requiring any medications (6) Lupus nephritis Status: Chronic Comment: Status post kidney and liver biopsy (fatty liver) -now with end-stage renal disease on hemodialysis (7) Narcolepsy Status: Chronic (8) Non-rheumatic tricuspid valve insufficiency Status: Chronic Comment: Trivial on echocardiogram done in January 2018 (9) Nonrheumatic mitral (valve) insufficiency Status: Chronic Comment: this was not mentioned on an ECH done in January of 2018 (10) SLE (systemic lupus erythematosus) Status: Chronic (11) Secondary pulmonary arterial hypertension Status: Chronic Comment: PA systolic estimated at 31 mmHg in January 2018, down from 50 in the past. Past Medical History - Allergies and Home Meds Allergies/Adverse Reactions: Allergies LONG Inhibitors Allergy (Verified 07/17/20 10:44) Angioedema adhesive Allergy (Verified 07/17/20 10:44) Rash lisinopril Allergy (Verified 07/17/20 10:44) Angioedema Sulfa (Sulfonamide Antibiotics) Allergy (Verified 07/17/20 10:44) Rash sulfamethoxazole [From Bactrim] Allergy (Verified 07/17/20 10:44) Rash trimethoprim [From Bactrim] Allergy (Verified 07/17/20 10:44) Rash tuberculin, purified protein deriva Allergy (Verified 07/17/20 10:44) Unknown Angioderm Adverse Reaction (Unknown, Uncoded 07/17/20 10:44) Unknown Primary Care Physician: Mitchell Bowen Chi, MD [Primary Care Provider] - Surgical History: - - failed AVF left arm, AVF right arm, carpal tunnel release, BL total hip, kidney transplant Smoking Status: Never smoker - Family History Maternal Family History: Family History (Last Reviewed 07/08/20 @ 13:[address] Ronen Garza MD) Mother Hypertension Kidney disease ALS (amyotrophic lateral sclerosis) Father Heart disease Hypertension Kidney disease Diabetes Family History: Reports: Diabetes, High Cholesterol, Heart Disease, Hypertension, Renal Disease, - Paternal Family History: Family History (Last Reviewed 07/08/20 @ 13:[address] Ronen Garza MD) Mother Hypertension Kidney disease ALS (amyotrophic lateral sclerosis) Father Heart disease Hypertension Kidney disease Diabetes Family History: Reports: Diabetes, High Cholesterol, Heart Disease, Hypertension, Renal Disease Sibling Family History: Family History (Last Reviewed 07/08/20 @ 13:[address] Ronen Garza MD) Mother Hypertension Kidney disease ALS (amyotrophic lateral sclerosis) Father Heart disease Hypertension Kidney disease Diabetes Family History: Reports: Diabetes Review of Systems General: Reports: Fever, Malaise. Denies: Chills, Sweats Eyes: Denies: Visual changes - bilaterally, Diplopia ENT: Denies: Rhinorrhea, Sore throat Cardiovascular: Denies: Chest pain, Palpitations Respiratory: Reports: Dyspnea on exertion. Denies: Dyspnea, Cough Gastrointestinal: Reports: Diarrhea. Denies: Abdominal pain, Nausea, Vomiting, Melena, Hematochezia Genitourinary: Reports: Dysuria - occasional burning dysuria, feels like my labia with no discomfort when wiping/palpation; no rash/lesions/bumps.. Denies: Hematuria, Frequency Musculoskeletal: Reports: Myalgias, Arthralgias. Denies: Swelling Skin: Denies: Rash, Wounds Neurological: Reports: Headache - mild, intermittent. Denies: Weakness, Numbness Physical Exam Vital Signs/Narrative: Vital Signs Temp Pulse Resp BP Pulse Ox 07/17/20 10:45 97 F L 94 16 113/77 98 Inital Vital Signs reviewed: Yes General: Well nourished, Well developed, No Acute Distress - well-appearing, nad Head: Normocephalic, Atraumatic Eyes: Perrl, EOMI ENT: Moist mucous membranes, No rhinorrhea Neck: Supple, Nontender Cardiovascular: Regular rate, Regular rhythm, No murmurs Respiratory: No distress, CTA bilaterally, Chest nontender Abdomen: Soft, Nontender - including RLQ transplanted kidney. overlying surgical scar benign, well-healed., Nondistended, Normal bowel sounds Back: Nontender, Normal Inspection. Negative for: CVA tenderness Extremities: Nontender, No edema. Negative for: Calf Tenderness Skin: Normal color, No rash, No Trauma Neurological: Alert, Oriented x3, Cranial nerves II-XII grossly intact, Normal Strength, Normal Sensation, Normal Gait Psychological: Normal affect, Normal Mood Diagnostic/Tx/Re-eval Impressions Chest X-Ray 07/17/20 11:45 IMPRESSION: No acute pulmonary process Electronically Signed: Richardson Manning MD at 12:09 EST , Service support , 07/17/20 11:45 Chest 1 View (Portable) [RAD] Stat Laboratory Results 07/17/20 07/17/20 07/17/20 12:10 12:10 12:10 WBC 4.9 RBC 4.37 Hgb 14.1 Hct 44.9 MCV 102.7 H MCH 32.3 H MCHC 31.4 L RDW Std Deviation 52.0 H RDW Coeff of Jah 13.6 Plt Count 189 MPV 10.4 Neut % (Auto) Not Reportable Absolute Neuts (auto) 3.9 Absolute Lymphs (auto) 0.34 L Total Counted 100 Neutrophils % (Manual) 77 H Band Neutrophils % 3 Lymphocytes % (Manual) 7 L Monocytes % (Manual) 7 Eosinophils % (Manual) 1 Metamyelocytes % 2 H Myelocytes % 3 H Diff Path Review May foll Platelet Estimate ADEQUATE RBC Morphology NORM C+C PT 12.8 INR 1.0 APTT 25.5 Sodium 137 Potassium 3.6 Chloride 105 Carbon Dioxide 27.0 Anion Gap 5 BUN 15 Creatinine 0.75 Estim Creat Clear Calc 80.07 Est GFR (MDRD) Af Amer 106 Est GFR (MDRD) Non-Af 88 BUN/Creatinine Ratio 20.0 Glucose 319 H Lactic Acid Calcium 9.6 Total Bilirubin 1.30 H AST 29 ALT 23 Alkaline Phosphatase 108 Total Protein 7.0 Albumin 3.1 L Globulin 3.9 Albumin/Globulin Ratio 0.8 L Urine Color Urine Clarity Urine pH Ur Specific [place] Urine Protein Urine Glucose (UA) Urine Ketones Urine Occult Blood Urine Nitrite Urine Bilirubin Urine Urobilinogen Ur Leukocyte Esterase Urine RBC Urine WBC Ur Squamous Epith Cells Urine Bacteria Urine Mucus COVID-19 (GAURAV) 07/17/20 07/17/20 07/17/20 12:10 12:23 12:45 WBC RBC Hgb Hct MCV MCH MCHC RDW Std Deviation RDW Coeff of Jah Plt Count MPV Neut % (Auto) Absolute Neuts (auto) Absolute Lymphs (auto) Total Counted Neutrophils % (Manual) Band Neutrophils % Lymphocytes % (Manual) Monocytes % (Manual) Eosinophils % (Manual) Metamyelocytes % Myelocytes % Diff Path Review Platelet Estimate RBC Morphology PT INR APTT Sodium Potassium Chloride Carbon Dioxide Anion Gap BUN Creatinine Estim Creat Clear Calc Est GFR (MDRD) Af Amer Est GFR (MDRD) Non-Af BUN/Creatinine Ratio Glucose Lactic Acid 1.5 Calcium Total Bilirubin AST ALT Alkaline Phosphatase Total Protein Albumin Globulin Albumin/Globulin Ratio Urine Color Yellow Urine Clarity Sl. Cloudy Urine pH 6.0 Ur Specific [place] 1.010 Urine Protein 30 H Urine Glucose (UA) 1000 H Urine Ketones 5 H Urine Occult Blood 10 H Urine Nitrite Positive H Urine Bilirubin Negative Urine Urobilinogen 1 H Ur Leukocyte Esterase Negative Urine RBC 0 SEEN Urine WBC 0-5 SEEN Ur Squamous Epith Cells 0-5 SEEN Urine Bacteria 1+ Urine Mucus 0 SEEN COVID-19 (GAURAV) Negative - Rhythm Strip Rhythm Strip: Sinus Rhythm Rate: 90 Ectopy: None - EKG Initial EKG Interpretation: Sinus Rhythm, S-T Elevation - convex, ant-sept, w/ lateral ST depressions Prior: Unchanged - chronic abnormality, unchanged - Medical Decision Making Clinically patient remained well, ambulatory without any symptoms or problems. Her EKG always looks abnormal according to her. It is consistent with a STEMI however this is what her old EKG looked like 5 or 6 months ago, she has no chest discomfort or symptoms of angina right now, and her troponin is negative. Therefore I am comfortable declaring this chronic abnormality without need for acute intervention. Her urine came back with positive nitrite, without pyuria or leukocyte esterase. In an immunocompromised patient on immunosuppressives, this certainly does not rule out infection, nor is it necessarily specific for it. I think it is certainly possible that this is what is causing her fevers, so empiric antibiotics were begun. Some immature white blood cells were noted. Covid was redone and negative today. Discussed with transplant physician Dr. Diaz at [facility]. Agrees with putting the patient on antibiotics, already started cephalexin, but she prefers to have Cipro 500 mg twice daily x7 days prescribed instead, and is okay with the patient going home since blood and urine cultures are obtained. If 1 or both returned positive, she would like the cultures sent to them if possible, the post transplant phone number to call is [phone]. Discussed with the patient as well. She is comfortable with that plan. ED Disposition - Plan for ED Patient: Disposition: Home or Assisted Living Diagnosis: Immunocompromised state due to drug therapy, Renal transplant, status post, Fever, UTI (urinary tract infection) Instructions: ED CYSTITIS Female Adult Prescriptions: Ciprofloxacin [Cipro] 500 mg PO BID #14 tab Transmission Status: Pending to [facility] Referrals: Mitchell Bowen Chi, MD [Primary Care Provider] - coordinator, your transplant [Other] - 3-5 Days
--- NOTE | 2020-07-17 11:45 | RAD_ITS ---
STUDY: X-RAY CHEST REASON FOR EXAM: Female, 49 years old. FEVER, BANKS, DIARRHEA, RECENT KIDNEY TRANSPLANT TECHNIQUE: Single AP portable view of the chest. COMPARISON: 09/26/2019 FINDINGS: The lungs are clear and expanded. There is no demonstrated pleural abnormality. Normal size heart. Normal mediastinum and malorie. Normal visualized pulmonary arteries. Normal visualized aortic arch and descending thoracic aorta. Normal visualized thoracic spine. Normal visualized ribs, clavicles, and shoulders. There is no demonstrated abnormality of the visualized soft tissue structures of the upper abdomen. RAD/Chest 1 View (Portable) IMPRESSION: No acute pulmonary process Electronically Signed: Richardson Manning MD at 12:09 EST , Service support ,
[2020-07-17 12:32] VITALS: BP 124/82; PULSE 91; RESP 18; O2SAT 97
[2020-07-17] MEDS: 0.9% Normal Saline 1,000 ML 150 ML IV (12:32)
[2020-07-17 12:38] LABS: Hematocrit 44.9 % (37-47); Hemoglobin 14.1 g/dL (12.0-15.0); Mean Corp Hgb Conc 31.4 g/dL (32-36); Mean Corpuscular Hgb 32.3 pg (27.0-32.0); Mean Corpuscular Volume 102.7 fL (81-99); Mean Platelet Vol. 10.4 fl (6.2-12.0); POSITIVE COUNT YES; POSITIVE DIFFERENTIAL YES; POSITIVE MORPHOLOGY YES; Platelet Count 189 K/mm3 (150-450); RBC Distribution Width CV 13.6 % (11.6-14.6); Red Blood Count 4.37 M/mm3 (4.2-5.4); White Blood Count 4.9 K/mm3 (4.4-11.0)
[2020-07-17 12:44] LABS: ALB/GLOB Ratio 0.8 RATIO (0.9-2.4); AST(SGOT) 29 U/L (15-37); Alanine Aminotransfer ALT/SGPT 23 U/L (13-56); Albumin, Serum 3.1 g/dL (3.2-5.0); Alkaline Phosphatase 108 U/L (45-117); Anion Gap 5 (5-15); BUN 15 mg/dL (7-18); Calcium,Total 9.6 mg/dL (8.5-10.1); Chloride 105 mmol/L (98-107); Creatinine, Serum 0.75 mg/dL (0.55-1.02); EST Glomerular Filtration Rate 88 mL/min (>60); Est Glom Filt Rate - Afr Amer 106 mL/min (>60); Estimated Creatinine Clearance 80.07 ml/min; Globulin 3.9 g/dL (2.2-4.2); Glucose 319 mg/dL (74-106); Potassium 3.6 mmol/L (3.5-5.1); Sodium Level 137 mmol/L (136-145)
[2020-07-17 12:45] VITALS: TEMP 37.4
[2020-07-17 12:50] LABS: Differential Indicated MANUAL DIFF
[2020-07-17 12:52] LABS: Mucous, Urine 0 SEEN /hpf (<or=2+); Red Blood Cells-Urine 0 SEEN /hpf (0-5)
[2020-07-17 12:56] LABS: Lactic Acid 1.5 mmol/L (0.4-1.9)
[2020-07-17 13:28] LABS: Prothrombin Time (Protime)PT. 12.8 SECONDS (11.7-14.9)
[2020-07-17 13:29] LABS: Eosinophil 1 % (0-5); Lymphocyte 7 % (19-41); Metamyelocyte 2 % (0-1); Monocyte 7 % (0-10); Myelocyte 3 (0-0); Neutrophil-Band 3 % (0-5); Neutrophil-Segmented 77 % (47-70); Partial Thromboplast Time 25.5 Seconds (24.1-36.2); Platelet Estimate ADEQUATE (ADEQ); Red Cell Morphology NORM C+C NORMAL (NORM C&C); Total Cells Counted 100 (MANUAL DIFF)
[2020-07-17 13:30] LABS: Absolute Lymphocyte Count 0.34 X10^3/uL (0.83-4.51); Absolute Neutrophil Count 3.9 X10^3/uL (2.0-7.7)
[2020-07-17 13:39] LABS: Color, Urine Yellow (Yellow); Glucose, Dipstick 1000 mg/dl (Normal); Ketone-Dipstick 5 mg/dl (Negative); Leukocyte Esterase-Dipstick Negative /ul (Negative); Nitrite-Dipstick Positive (Negative); Occult Blood-Urine 10 /ul (Negative); Protein-Dipstick 30 mg/dl (Negative); Urine Bilirubin Dipstick Negative (Negative); Urine Clarity Sl. Cloudy (Clear); Urine Urobilinogen 1 mg/dl (Normal)
[2020-07-17 13:46] LABS: Bacteria 1+ /hpf (None Seen); Squamous Epithelial Cells - UA 0-5 SEEN /hpf (5-10); White Blood Cells 0-5 SEEN /hpf (0-5)
[2020-07-17 13:48] VITALS: BP 138/91; PULSE 92; RESP 18
[2020-07-17 14:14] LABS: Probe Check PASS; Specimen Processing Control PASS
[2020-07-17] MEDS: Cephalexin 250 MG Capsule 500 MG PO (15:20)
[2020-07-17] MEDS: Ciprofloxacin 500 MG Tablet PO (15:44)
[2020-07-17 15:45] VITALS: BP 156/92; PULSE 93; RESP 18
--- NOTE | 2020-07-18 01:06 | ED.RN ---
notified of positive wound culture. No further orders
[2020-07-18 13:03] LABS: Pathologist Review Reviewed
== END 2020-07-17 16:22 | disposition home or self-care (01) ==
PROVIDERS: Emergency Provider Emergency Medicine; PCP Family Medicine Geriatric Medicine
DX: D84.821 Immunodeficiency due to drugs (principal); Z79.899 Other long term (current) drug therapy; Z94.0 Kidney transplant status; R50.9 Fever, unspecified; N39.0 Urinary tract infection, site not specified; M79.7 Fibromyalgia; N18.6 End stage renal disease; D63.1 Anemia in chronic kidney disease; E11.22 Type 2 diabetes mellitus with diabetic chronic kidney disease; I27.21 Secondary pulmonary arterial hypertension; G47.419 Narcolepsy without cataplexy; M32.14 Glomerular disease in systemic lupus erythematosus; F41.9 Anxiety disorder, unspecified; F32.9 Major depressive disorder, single episode, unspecified; M47.812 Spondylosis without myelopathy or radiculopathy, cervical region; I34.0 Nonrheumatic mitral (valve) insufficiency; K76.0 Fatty (change of) liver, not elsewhere classified; Z82.49 Family history of ischemic heart disease and other diseases of the circulatory system; Z87.440 Personal history of urinary (tract) infections; Z88.1 Allergy status to other antibiotic agents; Z88.2 Allergy status to sulfonamides; Z88.8 Allergy status to other drugs, medicaments and biological substances; Z99.2 Dependence on renal dialysis
CPT/HCPCS: 71045; 80053; 81001; 83605; 85025; 85610; 85730; 87040; 87077; 87086; 87088; 87186; 87635; 93005; 96360; 96361; 99285; J7030; A4216; U0002

== ENCOUNTER 2020-07-18 14:22 | Emergency (ER) | payer MEDICARE, MEDICAID, SELFPAY ==
[2020-07-17 10:45] VITALS: BMI 24.2
[2020-07-18 14:24] VITALS: BP 108/65; PULSE 104; RESP 20; TEMP 36.2; BMI 23.8
--- NOTE | 2020-07-18 14:52 | ED.DCSUM_ITS ---
History of Present Illness Chief Complaint: General Illness Informant: Patient Narrative: Patient is a 49-year-old female with a past medical history of lupus, diabetes who presents to the emergency department for positive blood culture. She had a kidney transplant performed 2 months ago. She is on immunosuppressive medications. She presented to the emergency department last night for fever, urinary symptoms. She tested positive for gram-negative rods. She has taken 3 doses of ciprofloxacin so far. He states that she did have a fever last night which resolved with Tylenol. She is still having urinary frequency and dysuria. She denies any abdominal pain or flank pain. She has been nauseous but no episodes of vomiting. She has had some mild diarrhea. Past Medical History - Allergies and Home Meds Allergies/Adverse Reactions: Allergies LONG Inhibitors Allergy (Verified 07/17/20 10:44) Angioedema adhesive Allergy (Verified 07/17/20 10:44) Rash lisinopril Allergy (Verified 07/17/20 10:44) Angioedema Sulfa (Sulfonamide Antibiotics) Allergy (Verified 07/17/20 10:44) Rash sulfamethoxazole [From Bactrim] Allergy (Verified 07/17/20 10:44) Rash trimethoprim [From Bactrim] Allergy (Verified 07/17/20 10:44) Rash tuberculin, purified protein deriva Allergy (Verified 07/17/20 10:44) Unknown Angioderm Adverse Reaction (Unknown, Uncoded 07/17/20 10:44) Unknown Primary Care Physician: Mitchell Bowen Chi, MD [Primary Care Provider] - Prior records reviewed: Yes Surgical History: - - failed AVF left arm, AVF right arm, carpal tunnel release, BL total hip, kidney transplant Smoking Status: Never smoker - Family History Maternal Family History: Family History (Last Reviewed 07/08/20 @ 13:[address] Ronen Garza MD) Mother Hypertension Kidney disease ALS (amyotrophic lateral sclerosis) Father Heart disease Hypertension Kidney disease Diabetes Family History: Reports: Diabetes, High Cholesterol, Heart Disease, Hypertension, Renal Disease, - Paternal Family History: Family History (Last Reviewed 07/08/20 @ 13:[address] Ronen Garza MD) Mother Hypertension Kidney disease ALS (amyotrophic lateral sclerosis) Father Heart disease Hypertension Kidney disease Diabetes Family History: Reports: Diabetes, High Cholesterol, Heart Disease, Hypertension, Renal Disease Sibling Family History: Family History (Last Reviewed 07/08/20 @ 13:[address] Ronen Garza MD) Mother Hypertension Kidney disease ALS (amyotrophic lateral sclerosis) Father Heart disease Hypertension Kidney disease Diabetes Family History: Reports: Diabetes Review of Systems All systems negative except as indicated General: Reports: Fever, Malaise. Denies: Chills, Sweats Eyes: Denies: Visual changes - bilaterally, Diplopia ENT: Denies: Rhinorrhea, Sore throat Cardiovascular: Denies: Chest pain, Palpitations Respiratory: Denies: Dyspnea, Cough, Dyspnea on exertion Gastrointestinal: Reports: Diarrhea. Denies: Abdominal pain, Nausea, Vomiting, Melena Genitourinary: Reports: Dysuria, Frequency. Denies: Hematuria Musculoskeletal: Denies: Back pain, Extremity Pain Skin: Denies: Rash, Wounds Neurological: Denies: Headache, Weakness, Numbness Physical Exam Vital Signs/Narrative: Vital Signs Temp Pulse Resp BP 07/18/20 14:24 97.1 F L 104 H 20 H 108/65 Inital Vital Signs reviewed: Yes General: Well nourished, Well developed, No Acute Distress Head: Normocephalic, Atraumatic Eyes: Perrl, EOMI ENT: Moist mucous membranes, No rhinorrhea Neck: Supple, Nontender Cardiovascular: Regular rate, Regular rhythm, No murmurs Respiratory: No distress, CTA bilaterally, Chest nontender Abdomen: Soft, Nontender, Nondistended, Normal bowel sounds Back: Nontender, Normal Inspection Extremities: Nontender, No edema Skin: Normal color, No rash Neurological: Alert, Oriented x3, Cranial nerves II-XII grossly intact, Normal Strength, Normal Sensation Psychological: Normal affect, Normal Mood Diagnostic/Tx/Re-eval - Medical Decision Making Patient presents to the emergency department for positive blood cultures. She is immunosuppressed with a recent kidney transplant. We will start her on IV Zosyn and repeat blood cultures. She will be transferred back to [facility] transplant team. Patient is a direct admit and patient already had a bed available for her. She is started on the antibiotics and transferred in stable condition. Repeat blood culture obtained. Patient understands and is agreeable this plan. She otherwise has been stable throughout ED stay. ED Disposition - Plan for ED Patient: Disposition: Acute Care Hospital - Other Diagnosis: Bacteremia, Urinary tract infection, Hyperglycemia Referrals: Mitchell Bowen Chi, MD [Primary Care Provider] -
[2020-07-18 15:42] LABS: Hematocrit 41.2 % (37-47); Hemoglobin 13.3 g/dL (12.0-15.0); Mean Corp Hgb Conc 32.3 g/dL (32-36); Mean Corpuscular Hgb 32.5 pg (27.0-32.0); Mean Corpuscular Volume 100.7 fL (81-99); Mean Platelet Vol. 10.3 fl (6.2-12.0); POSITIVE COUNT YES; POSITIVE DIFFERENTIAL YES; POSITIVE MORPHOLOGY YES; Platelet Count 186 K/mm3 (150-450); RBC Distribution Width CV 13.2 % (11.6-14.6); RBC Distribution Width SD 49.6 fl (35.1-43.9); Red Blood Count 4.09 M/mm3 (4.2-5.4); White Blood Count 4.2 K/mm3 (4.4-11.0)
[2020-07-18 16:09] LABS: Anion Gap 10 (5-15); BUN 17 mg/dL (7-18); BUN/Creat Ratio 21.3 RATIO (10-20); Calcium,Total 9.4 mg/dL (8.5-10.1); Chloride 105 mmol/L (98-107); EST Glomerular Filtration Rate 82 mL/min (>60); Est Glom Filt Rate - Afr Amer 99 mL/min (>60); Estimated Creatinine Clearance 75.07 ml/min; Glucose 330 mg/dL (74-106); Potassium 3.4 mmol/L (3.5-5.1); Sodium Level 137 mmol/L (136-145)
[2020-07-18 16:15] VITALS: BP 142/79; PULSE 93; RESP 16; TEMP 36.3; O2SAT 99
[2020-07-18 16:20] LABS: Lactic Acid 1.2 mmol/L (0.4-1.9)
[2020-07-18 16:32] LABS: Differential Indicated MANUAL DIFF
[2020-07-18 17:00] LABS: Lymphocyte 7 % (19-41); Metamyelocyte 1 % (0-1); Monocyte 9 % (0-10); Myelocyte 1 (0-0); Neutrophil-Band 1 % (0-5); Neutrophil-Segmented 81 % (47-70); Total Cells Counted 100 (MANUAL DIFF)
[2020-07-18 17:02] LABS: Anisocytosis 1+; Macrocytosis 1+; Platelet Estimate ADEQUATE (ADEQ); Red Cell Morphology N CHROM NORMAL (NORM C&C)
[2020-07-18 17:04] LABS: Absolute Lymphocyte Count 0.29 X10^3/uL (0.83-4.51); Absolute Neutrophil Count 3.5 X10^3/uL (2.0-7.7)
[2020-07-19 13:26] LABS: Pathologist Review Reviewed
== END 2020-07-18 16:19 | disposition short-term general hospital (02) ==
PROVIDERS: Emergency Provider Emergency Medicine; PCP Family Medicine Geriatric Medicine
DX: R78.81 Bacteremia (principal); N39.0 Urinary tract infection, site not specified; E11.65 Type 2 diabetes mellitus with hyperglycemia; M32.9 Systemic lupus erythematosus, unspecified; Z82.49 Family history of ischemic heart disease and other diseases of the circulatory system; Z88.1 Allergy status to other antibiotic agents; Z88.2 Allergy status to sulfonamides; Z88.8 Allergy status to other drugs, medicaments and biological substances; Z94.0 Kidney transplant status
CPT/HCPCS: 80048; 83605; 85025; 87040; 96365; 99284; J7040; A4216

== ENCOUNTER → 2020-08-01 15:24 | Outpatient (CLI) | payer MEDICARE, MEDICAID, SELFPAY ==
[2020-07-24 09:55] VITALS: BMI 24.5
--- NOTE | 2020-08-01 15:25 | MRI_ITS ---
STUDY: MRI LEFT KNEE REASON FOR EXAM: Female, 49 years old. Left knee pain. Bone infarction. TECHNIQUE: Standardized fat and water weighted pulse sequences were obtained in all 3 orthogonal planes. COMPARISON: 06/12/2020. FINDINGS: Grade 2 cartilage loss of the patellofemoral articulation. Grade 2/3 cartilage loss at the medial compartment. Lateral compartment articular cartilage preserved. Bone infarctions at the distal femur and proximal tibia (sagittal images 13 and 28 series 4) predominating at the posterior lateral femur. No acute fracture line. No acute dislocation. Tiny lateral meniscal free edge degeneration/fraying (coronal image 15 series 7 and sagittal image 19 series 5). Medial meniscus intact. Small volume joint effusion. Small popliteal cyst. Minimal soft tissue swelling. Normal medial collateral ligamentous complex (MCL). Normal distal semimembranosus, gracilis and semitendinosus tendons. Normal proximal tibiofibular articulation. Normal lateral collateral (fibular) ligament. Normal popliteus tendon. Normal biceps femoris tendon. Normal anterior cruciate ligament (ACL). Normal posterior cruciate ligament (PCL). Normal medial and lateral patellar retinaculum. Normal quadriceps tendon. Normal patellar tendon. Normal Hoffa''s fat pad. MRI/Lower Ext Joint Only (Routine) IMPRESSION: Distal femoral and proximal tibial bone infarctions Mild patellofemoral cartilage loss Mild/moderate medial compartment cartilage loss Small-volume joint effusion, small popliteal cyst and minimal swelling Minimal lateral meniscal free edge degeneration/fraying Electronically Signed: Javi Gil DO at 8:20 EST Tel , Service support ,
--- NOTE | 2020-08-01 15:25 | MRI_ITS ---
STUDY: MRI RIGHT KNEE REASON FOR EXAM: Female, 49 years old. Knee pain. Infarction. TECHNIQUE: Standardized fat and water weighted pulse sequences were obtained in all 3 orthogonal planes. COMPARISON: Contralateral knee from the same day. X-ray dated 06/12/2020. FINDINGS: Grade 2 cartilage loss at the patellofemoral articulation. Lateral compartment articular cartilage preserved. Medial compartment grade 2 cartilage loss. No acute fracture. No acute dislocation. Multiple bone infarctions most pronounced at the posterior medial femur (sagittal image 29 series 4). Lateral meniscus intact. Medial meniscus intact. Small volume joint effusion. Tiny popliteal cyst. No significant swelling. Normal medial collateral ligamentous complex (MCL). Normal distal semimembranosus, gracilis and semitendinosus tendons. Normal proximal tibiofibular articulation. Normal lateral collateral (fibular) ligament. Normal popliteus tendon. Normal biceps femoris tendon. Normal anterior cruciate ligament (ACL). Normal posterior cruciate ligament (PCL). Normal medial and lateral patellar retinaculum. Normal quadriceps tendon. Normal patellar tendon. Normal Hoffa''s fat pad. MRI/Lower Ext Joint Only (Routine) IMPRESSION: Distal femoral and proximal tibial bone infarctions (similar to contralateral knee) Mild patellofemoral cartilage loss (similar to contralateral knee) Mild medial compartment cartilage loss (similar to contralateral knee) Small-volume joint effusion and small popliteal cyst (similar to contralateral knee) Electronically Signed: Javi Gil DO at 9:34 EST Tel , Service support ,
== END ==
PROVIDERS: PCP Family Medicine Geriatric Medicine; Referring Provider Orthopaedic Surgery; Visit Provider Orthopaedic Surgery
DX: M25.561 Pain in right knee (principal); M25.562 Pain in left knee; E83.39 Other disorders of phosphorus metabolism
CPT/HCPCS: 73721

== ENCOUNTER → 2020-10-01 13:44 | Outpatient (CLI) | payer MEDICARE, MEDICAID, SELFPAY ==
[2020-10-01 15:15] LABS: Absolute Lymphocyte Count 0.99 X10^3/uL (0.83-4.51); Absolute Neutrophil Count 3.5 X10^3/uL (2.0-7.7); Basophil# 0.04 X10^3/uL; Basophil% 0.7 % (0-1); Eosinophil# 0.11 X10^3/uL; Hematocrit 42.1 % (37-47); Hemoglobin 13.4 g/dL (12.0-15.0); Lymphocyte # 0.99 X10^3/ul (4.0); Lymphocyte % 17.7 % (19-41); Mean Corp Hgb Conc 31.8 g/dL (32-36); Mean Corpuscular Hgb 31.4 pg (27.0-32.0); Mean Corpuscular Volume 98.6 fL (81-99); Mean Platelet Vol. 10.3 fl (6.2-12.0); Monocyte# 0.91 X10^3/uL; Monocyte% 16.3 % (0-10); NRBC Flagged by Analyzer 0 % (0-5); Neutrophil # 3.51 X10^3/uL (2.7-7.7); Neutrophil % 62.8 % (47-70); Platelet Count 228 K/mm3 (150-450); RBC Distribution Width CV 13.6 % (11.6-14.6); RBC Distribution Width SD 49.9 fl (35.1-43.9); Red Blood Count 4.27 M/mm3 (4.2-5.4); White Blood Count 5.6 K/mm3 (4.4-11.0)
[2020-10-01 15:20] LABS: ALB/GLOB Ratio 0.8 RATIO (0.9-2.4); AST(SGOT) 52 U/L (15-37); Alanine Aminotransfer ALT/SGPT 25 U/L (13-56); Albumin, Serum 3.5 g/dL (3.2-5.0); Alkaline Phosphatase 86 U/L (45-117); Anion Gap 5 (5-15); BUN 9 mg/dL (7-18); BUN/Creat Ratio 11.2 RATIO (10-20); Calcium,Total 10.1 mg/dL (8.5-10.1); Chloride 104 mmol/L (98-107); EST Glomerular Filtration Rate 81 mL/min (>60); Est Glom Filt Rate - Afr Amer 98 mL/min (>60); Globulin 4.3 g/dL (2.2-4.2); Glucose 123 mg/dL (74-106); Potassium 3.9 mmol/L (3.5-5.1); Protein, Total 7.8 g/dL (6.4-8.2); Sodium Level 136 mmol/L (136-145); Vitamin D,25 Hydroxy 28.6 ng/mL
== END ==
PROVIDERS: PCP Family Medicine Geriatric Medicine; Visit Provider Family Medicine Geriatric Medicine
DX: E11.9 Type 2 diabetes mellitus without complications (principal); I10 Essential (primary) hypertension; E55.9 Vitamin D deficiency, unspecified; N39.0 Urinary tract infection, site not specified
CPT/HCPCS: 36415; 80053; 82306; 84443; 85025; 87086; 87088

== ENCOUNTER → 2020-12-31 14:53 | Outpatient (CLI) | payer MEDICARE, MEDICAID, SELFPAY ==
[2020-11-04 13:14] VITALS: BMI 23.8
[2020-12-31 15:58] LABS: Absolute Neutrophil Count 4.7 X10^3/uL (2.0-7.7); Basophil# 0.03 X10^3/uL; Basophil% 0.5 % (0-1); Eosinophil# 0.03 X10^3/uL; Eosinophils% 0.5 % (0-5); Hematocrit 52.7 % (37-47); Hemoglobin 16.5 g/dL (12.0-15.0); Lymphocyte % 12.7 % (19-41); Mean Corp Hgb Conc 31.3 g/dL (32-36); Mean Corpuscular Hgb 28.1 pg (27.0-32.0); Mean Corpuscular Volume 89.8 fL (81-99); Mean Platelet Vol. 10.5 fl (6.2-12.0); Monocyte# 0.74 X10^3/uL; Monocyte% 11.8 % (0-10); NRBC Flagged by Analyzer 0 % (0-5); Neutrophil # 4.67 X10^3/uL (2.7-7.7); Neutrophil % 74.2 % (47-70); POSITIVE COUNT YES; Platelet Count 210 K/mm3 (150-450); RBC Distribution Width CV 15.6 % (11.6-14.6); RBC Distribution Width SD 50.5 fl (35.1-43.9); Red Blood Count 5.87 M/mm3 (4.2-5.4); White Blood Count 6.3 K/mm3 (4.4-11.0)
[2020-12-31 16:06] LABS: Differential Indicated SCAN CRITERIA MET
[2020-12-31 16:17] LABS: Vitamin D,25 Hydroxy 11.2 ng/mL
[2020-12-31 16:36] LABS: ALB/GLOB Ratio 0.9 RATIO (0.9-2.4); AST(SGOT) 73 U/L (15-37); Alanine Aminotransfer ALT/SGPT 43 U/L (13-56); Albumin, Serum 3.8 g/dL (3.2-5.0); Alkaline Phosphatase 191 U/L (45-117); Anion Gap 8 (5-15); BUN 9 mg/dL (7-18); BUN/Creat Ratio 10.9 RATIO (10-20); Chloride 104 mmol/L (98-107); Creatinine, Serum 0.83 mg/dL (0.55-1.02); Differential Comment SCANNED; EST Glomerular Filtration Rate 78 mL/min (>60); Est Glom Filt Rate - Afr Amer 94 mL/min (>60); Globulin 4.2 g/dL (2.2-4.2); Glucose 179 mg/dL (74-106); Potassium 4.5 mmol/L (3.5-5.1); Sodium Level 137 mmol/L (136-145); Thyroid Stim Hormone (TSH) 0.85 uIU/mL (0.358-3.74)
== END ==
PROVIDERS: PCP Family Medicine Geriatric Medicine; Visit Provider Family Medicine Geriatric Medicine
DX: I10 Essential (primary) hypertension (principal); E11.9 Type 2 diabetes mellitus without complications; E55.9 Vitamin D deficiency, unspecified
CPT/HCPCS: 36415; 80053; 82306; 84443; 85025

== ENCOUNTER 2021-02-11 13:00 | Outpatient (RCR) | payer MEDICARE, MEDICAID, SELFPAY ==
[2020-11-04 13:14] VITALS: BMI 23.8
--- NOTE | 2021-01-10 14:49 | HP.PTEVAL ---
Patient's Visit Information PAVITHRA PAINTER is a 50 year old F referred to Physical Therapy by Dr. Garcia Herrera DO with a diagnosis of GENERALIZED WEAKNESS AND SHAN KNEE PAIN.. Date of Evaluation: 01/10/21 Physical Therapist: Maureen Solis, PT, Cert MDT - Visit Plan Frequency: 2-3x /Week Duration: 4-6 Weeks Plan: NO RIGHT HIP INTERNAL ROATION OR ABDUCTION. *INCLUDE WRITTEN HEP IN PREPARATION FOR DISCHARGE INCASE PATIENT IS NOT ABLE TO GET TRANSPORTATION TO JOIN A MEMBER POST PT. POSTURE CORRECTION/STRENGTHENING, ENDURANCE TRAINING, INSTRUCTION IN APPROPRIATE BODY MECHANICS AND ACTIVITY MODIFICATIONS. DLS STARTING WITH A NEUTRAL SPINE PROGRESSING ROM TOLERATED. SHAN UE AND LE ROM, STRETCHING AND STRENGTHENING. HEP INSTRUCTION. - Subjective PATIENT REPORTS RECEIVING HER KIDNEY TRANSPLANT MAY 09 2020 AFTER WAITING 4 YEARS. HAS NOT BEEN ABLE TO GET OUT OF HER HOME MUCH UNTIL NOW. PATIENT REPORTS SHE HAS HAD SOME HOME PT BUT WANTED TO WAIT UTNIL AFTER HAVING BOTH VACCINES FOR COVID BEFORE COMING TO OUTPATINET PT. NO NEED FOR DIALYSIS ANYMORE. PATIENT REPORTS SHE BILATERAL KNEE ARTHRITIS AND NECROSIS WITH A LOT OF PAIN AND OVER-ALL WEAKNESS. MOST JOINTS ARE ACHY. HER GOAL FOR THERAPY IS TO BE ABLE TO DO AT LEAST 2 FLIGHTS OF STEPS AGAIN AND GET BACK TO WHERE SHE WAS BEFORE STOPPING PT LAST TIME. STATES SHE DOES NOT FEEL COMFORTABLE GOING OUTSIDE VERY MUCH YET AND FATIGUES QUICKLY. STATES HER NEUROPATHY HAS SPREAD FROM HER TOES INTO HER FEET MAKING WALKING MORE DIFFICULT THAN BEFORE. PATIENT PLANS TO GET A MEMBERSHIP AT [employer] ONCE FORMAL PT CONCLUDES THIS TIME AND IS WORKING TOWARD TRYING TO BE ABLE TO DRIVE LOCALLY AGAIN. HAS NOT DRIVEN FOR ABOUT 3-4 YEARS. [employer] PLAYS A ROLL IN IF SHE CAN DRIVE AGAIN OR NOT. OTHER TRANSPORTATION OPTIONS ARE HER BROTHER. PATIENT REPORTS HER KNEE AND GENERALIZED PAIN RANGES FROM ABOUT 2/10 TO 8/10. PATIENT REPORTS SHE IS DIABETIC AGAIN AND MANAGING IT WITH ORAL MEDICATIONS AND DIET. PATIENT REPORTS THE ONLY RESTRICTION SHE HAS IS TO AVOID BENDING HER RIGHT LEG INTO INTERNAL ROTATION AND OUT TO THE SIDE PER HER THR SURGEON. PMH: RIGHT THR WITH REVISION AND OTHER SURGERIES TOTALLY X 6. L THR. NIDDM. NARCOLEPSY. FIBROMYALGIA. ARTHRITIS. L ELBOW FX. HTN. OTHER: AUG 2020 PATIENT REPORTS HAVING 3 SHAN KNEE INJECTIONS THAT HELPED THE PAIN SOME. - Objective THIS PATIENT PRESENTS TO PT WELL KNOWN TO THIS PT FROM PRIOR EPISODES OF CARE IN PT FOR STRENGTHENING. PATIENT AMBULATES INDEP'LY INTO PT WITHOUT ANY ASSISTIVE DEVICES OR LOB. PATIENT ADEOLA'S GAIT X 1,200 PLUS FEET TODAY IN CLINIC ON LEVEL SURFACES. INCREASED LLE INTERNAL ROTATION LAST 150 FEET. GOOD CADANCE. INDEP TRANSFER SIT TO STAND WITHOUT UE ASSIST. Motor deficit: LLE GROSLY 4/5 WITH MMT'ING. RLE: HIP FLEX 4-/5, ABD 4-/5, ADD 4-/5, ER 3+/5, IR 3-/5. RIGHT HIP IR IS ESPECIALLY WEAK AND RIGHT HIP EXTERNAL ROTATION ROM IS STILL QUITE LIMITED. Core strength: POOR. LUMBAR MVMT LOSS: FLEX - NIL. EXT - MOD. RSG - MIN. LSG - MIN. PATIENT DENIES LBP OR HIP PAIN WITH LUMBAR ROM TESTING TODAY. SHAN UE AND LE ROM OTHERWISE IS WFL. - Goals Goal 1:: DECREASE C/O GENERALIZED PAIN Goal Time Frame: 4-6 Weeks Goal 2:: IMPROVE STANDING, WALKING, STAIR CLIMBING, ENDURANCE AND INDEP EX FUNCTION. Goal Time Frame: 4-6 Weeks Goal 3:: PATIENT WILL BE INDEP WITH AN EXERCISE PROGRAM FOR CONTINUED IMPROVEMENT ONCE FORMAL PHYSICAL THERAPY CONCLUDES. Goal Time Frame: 4-6 Weeks - Anticipated Interventions Patient/Client Instruction: Educate patient on: Condition, Plan of Care, Risk Factors, Benefits of Fitness Program For the Purpose of:: To improve self management Therapeutic Exercise to Include: Strength training, Endurance training, Body mechanics, Postural training, Neuromotor development, Dynamic Lumbar Stabilization, Scapular Strength/Stabilization For the Purpose of:: To decrease pain, To improve muscle performance and motor function, To increase tolerance to activity/condition/position, To improve ability of physical actions for home/community/work/leisure, To improve gait and locomotor functions Thank you for the opportunity to evaluate your patient. For Medicare and Medicare HMO plans, please review the plan of care and approve it. It will need to be FAXED BACK to us at [phone] for Medicare purposes. For Medicare only, by signing this I certify the plan of care. Please let me know if there are questions or concerns regarding this plan of care. Physician Signature: Date:
--- NOTE | 2021-02-11 13:36 | HP.PTREVAL ---
Dr. Garcia Herrera, DO, It has been my pleasure to treat PAVITHRA PAINTER over the last 6 visits for GENERALIZED WEAKNESS AND SHAN KNEE PAIN.. Please see the progress note below for an update on the physical therapy plan of care! Subjective: PATIENT REPORTS SHE HAD TO GET IN AND OUT OF A TRUCK YESTERDAY AND HAD TO USE HER RIGHT LEG BECAUSE HER LEFT LEG HAS BEEN HURTING AND WEAKER. PATIENT STATES DR. HERRERA HAS REQUESTED AUTHORIZATION FOR SHAN KNEE INJECTIONS. PATIENT REPORTS HER LEFT KNEE PAIN AND L HIP PAIN HAVE BEEN VERY LIMITING FACTORS IN HER REHAB. PATIENT REPORTS TODAY ISN'T BAD SOME OF THE OTHER DAYS. Wednesday02/05/21 CANCELLED PT DUE TO HAVING CERVICAL NERVE ABLASION. PATIENT REPORTS THAT OVER-ALL SHE IS DOING BETTER AND HER PAIN LEVELS ARE LOW BUT SHE IS STILL STRUGGLING WITH THE COMBINATION OF PAIN AND WEAKNESS. WALKING IS BEING VERY LIMITED BY THIS. PATIENT REPORTS SHE WANTS TO HOLD PT RIGHT NOW SINCE HER PAIN IS NOT ALLOWING HER TO COME CONSISTANTLY. STATES SHE WILL CONTINUE TO WALK IN HER NEIGHBORHOOD TOLERATED AND SHE IS HOPING SHE CAN RESUME PT WITH BETTER TOLERANCE ONCE SHE GETS HER KNEE INJECTIONS. Objective/Function: PATIENT WAS SEEN TODAY FOR RE-ASSESSMENT OF PROGRESS TOWARD THE SET PT GOALS AND THE NEED FOR FURTHER PHYSICAL THERAPY VS READINESS FOR DISCHARGE. PATIENT PRESENTS TODAY WITH C/O INCREASED LLE PAIN AND DEMO'S INCREASED DIFFICULTY WITH SIT TO STAND TRANSFERS AND WALKING. UPON EXAM TODAY: PATIENT AMBULATES INDEP'LY INTO PT WITHOUT ANY ASSISTIVE DEVICES OR LOB BUT LIMPING ON THE LEFT LE MORE THAN AT INITIAL EVAL AND PAIN INCREASES WITH GAIT EVEN 300 FEET. INCREASED LLE INTERNAL ROTATION. FAIR CADANCE. INDEP TRANSFER SIT TO STAND BUT UE DEPENDENT TO DO SO TODAY. Motor deficit: LLE GROSLY 4/5 WITH MMT'ING. RLE: HIP FLEX 4-/5, ABD 4-/5, ADD 4-/5, ER 3+/5, IR 3-/5. RIGHT HIP IR IS ESPECIALLY WEAK AND RIGHT HIP EXTERNAL ROTATION ROM IS STILL QUITE LIMITED. Core strength: POOR. LUMBAR MVMT LOSS: FLEX - NIL. EXT - MOD. RSG - MIN. LSG - MIN. PATIENT DENIES LBP OR HIP PAIN WITH LUMBAR ROM TESTING TODAY. SHAN UE AND LE ROM OTHERWISE IS WFL. Plan Plan: HOLD PT. PATIENT TO CALL TO RESUME PT WHEN OK'D BY DR. HERRERA AFTER INJECTIONS AND WHEN SHE FEELS SHE CAN TRY TOLERATING PT. NO RIGHT HIP INTERNAL ROATION OR ABDUCTION. *INCLUDE WRITTEN HEP IN PREPARATION FOR DISCHARGE INCASE PATIENT IS NOT ABLE TO GET TRANSPORTATION TO JOIN A MEMBER POST PT. POSTURE CORRECTION/STRENGTHENING, ENDURANCE TRAINING, INSTRUCTION IN APPROPRIATE BODY MECHANICS AND ACTIVITY MODIFICATIONS. DLS STARTING WITH A NEUTRAL SPINE PROGRESSING ROM TOLERATED. SHAN UE AND LE ROM, STRETCHING AND STRENGTHENING. HEP INSTRUCTION. Goals Goal 1:: DECREASE C/O GENERALIZED PAIN Goal Time Frame: 4-6 Weeks Goal Progress: Not Progressing Goal 2:: IMPROVE STANDING, WALKING, STAIR CLIMBING, ENDURANCE AND INDEP EX FUNCTION. Goal Time Frame: 4-6 Weeks Goal Progress: Not Progressing Goal 3:: PATIENT WILL BE INDEP WITH AN EXERCISE PROGRAM FOR CONTINUED IMPROVEMENT ONCE FORMAL PHYSICAL THERAPY CONCLUDES. Goal Time Frame: 4-6 Weeks Goal Progress: Not Progressing Anticipated Interventions Patient/Client Instruction: Educate patient on: Condition, Plan of Care, Risk Factors, Benefits of Fitness Program For the Purpose of:: To improve self management Therapeutic Exercise to Include: Strength training, Endurance training, Body mechanics, Postural training, Neuromotor development, Dynamic Lumbar Stabilization, Scapular Strength/Stabilization For the Purpose of:: To decrease pain, To improve muscle performance and motor function, To increase tolerance to activity/condition/position, To improve ability of physical actions for home/community/work/leisure, To improve gait and locomotor functions Please do not hesitate to contact me at [phone] by phone or if you have questions or concerns regarding this new plan of care! Sincerely, Maureen Solis, PT, Cert MDT
--- NOTE | 2021-06-22 16:56 | HP.PT.NRP ---
PAVITHRA PAINTER was seen in my office for initial evaluation on 01/10/21. The following Plan of Care was established for this patient: Initial Frequency: 2-3x /Week Initial Duration: 4-6 Weeks Patient/Client Instruction: Educate patient on: Condition, Plan of Care, Risk Factors, Benefits of Fitness Program For the Purpose of:: To improve self management Therapeutic Exercise to Include: Strength training, Endurance training, Body mechanics, Postural training, Neuromotor development, Dynamic Lumbar Stabilization, Scapular Strength/Stabilization For the Purpose of:: To decrease pain, To improve muscle performance and motor function, To increase tolerance to activity/condition/position, To improve ability of physical actions for home/community/work/leisure, To improve gait and locomotor functions This patient was last seen in our office 02/11/21. Pertinent comments regarding their Physical therapy will appear below: This patient has not returned to Physical Therapy and is appropriate to return to MD for further follow-up as needed. At this point I will be discontinuing this patient from physical therapy. I would be happy to see this patient again in the future if found appropriate by the physician. Thank you! Maureen Solis, PT, Cert MDT Balance/Gait/Functional tests - Balance/Special Test Scores Lower Extremity Functional Score: 38
== END 2021-02-11 19:00 | disposition home or self-care (01) ==
LOC: PT 13:00
PROVIDERS: PCP Family Medicine Geriatric Medicine; Referring Provider Orthopaedic Surgery; Visit Provider Orthopaedic Surgery
DX: R53.1 Weakness (principal); M25.562 Pain in left knee; M25.561 Pain in right knee
CPT/HCPCS: 97110; 97162; 97164

== ENCOUNTER → 2021-02-27 12:54 | Outpatient (CLI) | payer MEDICARE, MEDICAID, SELFPAY ==
[2020-11-04 13:14] VITALS: BMI 23.8
--- NOTE | 2021-02-27 12:56 | BI_ITS ---
MAMMOGRAPHY - BILATERAL SCREENING REASON FOR EXAM: Female, 50 years old. Routine annual screening examination. PERTINENT HISTORY: Non-contributory. TECHNIQUE: Digital bilateral breast oscar (3D mammographic acquisition) in the CC and MLO projections. 2-D mediolateral oblique (MLO) and craniocaudad (CC) views of both breasts were obtained. CAD: Full Field Digital Mammography with Computer Added Detection was performed. COMPARISON: Comparison is made with prior examination dated 09/14/2019 and 08/18/2018. FINDINGS: Breast Composition: The breasts are heterogeneously dense, which may obscure small masses. There are no dominant masses or suspicious calcifications. No other significant abnormalities are identified. There has been no significant change since the prior study. BI/SCRN MAMM (CAD)W/OSCAR BILAT IMPRESSION: Stable bilateral screening mammogram. Yearly follow-up mammogram recommended. (A) ASSESSMENT CATEGORY: BIRADS Category 1: Negative. A letter regarding these results will be sent to the patient by the facility within 30 days. Approximately 10% of breast cancers are not detected by mammography. A normal mammogram should not delay biopsy of a clinically suspicious abnormality. [id number] Electronically Signed: Jonathan Garcia MD at 13:54 EDT , Service support ,
--- NOTE | 2021-02-27 12:58 | BD_ITS ---
STUDY: DUAL ENERGY X-RAY ABSORPTIOMETRY / DXA REASON FOR EXAM: Female, 50 years old. [id number]. The patient is postmenopausal. TECHNIQUE: Bone Mineral Density (BMD) measurements of lumbar spine and left forearm were obtained. COMPARISON: Comparison is made with prior study date 05/07/2016. FINDINGS: Lumbar Spine (L1-L4): g/cm2 (1.122) / T-score (-0.5) / Z-score (-0.2) Findings are suggestive of with a fracture risk. Left Forearm: g/cm2 (0.771) / T-score (-1.2) / Z-score (-1.2) The T-Scores on the most recent prior examination were: Lumbar Spine (L1-L4): There has been worsening of bone density since the previous examination. BD/Dexa Bone Density Study IMPRESSION: The patient is considered osteopenic as outlined below according to World [place] Organization (WHO) criteria with a low fracture risk. There has been worsening of bone density since the previous examination. Reference Information: The T-score is the number of standard deviations above or below the standard which is normal for young adults at their peak bone mineral density. The World Health Organization (WHO) interprets the T-scores as follows: Above -1 Normal bone density Between -1 and -2.5 Osteopenia Equal to / or below -2.5 Osteoporosis As a practical clinical guideline, osteopenia may be graded as follows: Mild -1 through -1.5 Moderate -1.6 through -2.0 Severe -2.1 through -2.4 The Z-score is the number of standard deviations above or below age-matched controls. A Z-score of less than -1.5 would be considered abnormal. References: 1. NIH Osteoporosis and Related Bone Diseases www osteo.org 2. International Society for Clinical Densitometry www iscd.org 3. National Osteoporosis Foundation www nof.org Electronically Signed: Jonathan Garcia MD at 15:36 EDT , Service support ,
== END ==
PROVIDERS: PCP Family Medicine Geriatric Medicine; Referring Provider Family Medicine Geriatric Medicine; Visit Provider Family Medicine Geriatric Medicine
DX: Z12.31 Encounter for screening mammogram for malignant neoplasm of breast (principal); Z78.0 Asymptomatic menopausal state
CPT/HCPCS: 77063; 77067; 77080

== ENCOUNTER → 2021-04-03 11:55 | Outpatient (CLI) | payer MEDICARE, MEDICAID, SELFPAY ==
[2021-03-31 13:55] VITALS: BMI 23.8
[2021-04-03 17:23] LABS: Absolute Lymphocyte Count 0.75 X10^3/uL (0.83-4.51); Absolute Neutrophil Count 9.3 X10^3/uL (2.0-7.7); Basophil# 0.04 X10^3/uL; Basophil% 0.4 % (0-1); Lymphocyte # 0.75 X10^3/ul (0.83-4.51); Lymphocyte % 6.8 % (19-41); Mean Corp Hgb Conc 31.1 g/dL (32-36); Mean Corpuscular Hgb 27.7 pg (27.0-32.0); Mean Corpuscular Volume 89.1 fL (81-99); Mean Platelet Vol. 9.8 fl (6.2-12.0); Monocyte# 0.81 X10^3/uL; Monocyte% 7.4 % (0-10); NRBC Flagged by Analyzer 0 % (0-5); Neutrophil # 9.33 X10^3/uL (2.7-7.7); Neutrophil % 84.9 % (47-70); Platelet Count 195 K/mm3 (150-450); RBC Distribution Width CV 17.1 % (11.6-14.6); RBC Distribution Width SD 49.7 fl (35.1-43.9); Red Blood Count 6.86 M/mm3 (4.2-5.4)
[2021-04-03 17:55] LABS: Hematocrit 61.1 % (37-47)
[2021-04-03 17:56] LABS: Differential Indicated SCAN CRITERIA MET; POSITIVE COUNT NO; POSITIVE DIFFERENTIAL NO; POSITIVE MORPHOLOGY NO
[2021-04-03 18:07] LABS: ALB/GLOB Ratio 0.7 RATIO (0.9-2.4); AST(SGOT) 43 U/L (15-37); Alanine Aminotransfer ALT/SGPT 40 U/L (13-56); Albumin, Serum 3.3 g/dL (3.2-5.0); Alkaline Phosphatase 114 U/L (45-117); Anion Gap 12 (5-15); BUN 15 mg/dL (7-18); Calcium,Total 9.9 mg/dL (8.5-10.1); Chloride 102 mmol/L (98-107); EST Glomerular Filtration Rate 63 mL/min (>60); Est Glom Filt Rate - Afr Amer 76 mL/min (>60); Globulin 4.8 g/dL (2.2-4.2); Glucose 213 mg/dL (74-106); Potassium 4.6 mmol/L (3.5-5.1); Protein, Total 8.1 g/dL (6.4-8.2); Sodium Level 135 mmol/L (136-145); Thyroid Stim Hormone (TSH) 0.18 uIU/mL (0.358-3.74)
[2021-04-03 19:47] LABS: Anisocytosis RARE; Platelet Estimate ADEQUATE (ADEQ); Red Cell Morphology N CHROM NORMAL (NORM C&C)
[2021-04-03 21:24] LABS: Vitamin D,25 Hydroxy 32.3 ng/mL
[2021-04-04 13:46] LABS: Pathologist Review Reviewed
== END ==
PROVIDERS: PCP Family Medicine Geriatric Medicine; Visit Provider Family Medicine Geriatric Medicine
DX: E11.9 Type 2 diabetes mellitus without complications (principal); E55.9 Vitamin D deficiency, unspecified; I10 Essential (primary) hypertension
CPT/HCPCS: 36415; 80053; 82306; 84443; 85025

== ENCOUNTER → 2021-04-04 10:10 | Outpatient (CLI) | payer MEDICARE, MEDICAID, SELFPAY ==
[2021-03-31 13:55] VITALS: BMI 23.8
== END ==
PROVIDERS: PCP Family Medicine Geriatric Medicine; Visit Provider Family Medicine Geriatric Medicine
DX: D58.2 Other hemoglobinopathies (principal)

== ENCOUNTER → 2021-05-29 16:37 | Outpatient (CLI) | payer MEDICARE, MEDICAID, SELFPAY ==
--- NOTE | 2021-05-29 16:39 | CT_ITS ---
STUDY: CT CHEST, ABDOMEN T PELVIS WITH CONTRAST REASON FOR EXAM: Female, 50 years old. POLYCYTHEMIA. Renal transplant. RADIATION DOSAGE (If Supplied By Facility): CTDIvol = ( 13.78 ) mGy, DLP = ( 972.16 ) mGycm TECHNIQUE: Transaxial imaging was performed following intravenous administration of IV 100mL Isovue-300. Individualized dose optimization techniques were used for this CT. COMPARISON: No relevant priors. FINDINGS: CHEST Minimal increased linear markings in the anterior medial aspect of the right middle lobe suggestive of atelectasis and/or scarring. Minimal increased linear markings are also seen in the anterior aspect of the left lower lobe and at the lung bases suggest some mild linear atelectasis or scarring. There is no demonstrated pleural abnormality. There are calcifications of the coronary arteries. Normal mediastinum. Normal hilar regions. Normal unenhanced pulmonary arteries. Normal aorta arch and descending thoracic aorta. There are mild degenerative changes of the thoracic spine. Hepatomegaly. Diffuse fatty infiltration of the liver. ABDOMEN Hepatomegaly. Diffuse fatty infiltration of the liver. Normal gallbladder and extrahepatic biliary system. Normal spleen. Normal pancreas. Normal bilateral adrenal glands. Atrophy of both tunica-biloxi kidneys. A transplanted kidney is seen in the right hemipelvis. Gastric distention with residual food particles and oral contrast ingestion. Normal small intestine. Normal colon. The appendix is visualized and appears normal. Normal abdominal aorta. Normal inferior vena cava. Normal retroperitoneum. PELVIS Normal urinary bladder. Normal visualized small intestine. Moderate amount of fecal material is seen in the colon. There is no pelvic fluid. There is no pelvic lymphadenopathy or mass lesion. Normal visualized pelvic arteries. Normal abdominal wall. The patient is status post bilateral hip replacement. This causes beam hardening artifact of the pelvis limiting the assessment. CT/CT Chest, Abd, Pel w/Contrast IMPRESSION: Status post renal transplant in the right hemipelvis. Fatty infiltration of the liver and hepatomegaly. Electronically Signed: Jonathan Garcia MD at 9:35 EDT , Service support ,
== END ==
PROVIDERS: PCP Family Medicine Geriatric Medicine; Referring Provider Internal Medicine Medical Oncology; Visit Provider Internal Medicine Medical Oncology
DX: D75.1 Secondary polycythemia (principal)
CPT/HCPCS: 71260; 74177; Q9967; A4216

== ENCOUNTER → 2021-07-02 15:34 | Outpatient (CLI) | payer MEDICARE, MEDICAID, SELFPAY ==
[2021-07-02 17:06] LABS: Absolute Lymphocyte Count 0.86 X10^3/uL (0.83-4.51); Absolute Neutrophil Count 5.3 X10^3/uL (2.0-7.7); Basophil# 0.04 X10^3/uL; Basophil% 0.6 % (0-1); Eosinophil# 0.09 X10^3/uL; Eosinophils% 1.3 % (0-5); Hematocrit 35.6 % (37-47); Hemoglobin 10.6 g/dL (12.0-15.0); Lymphocyte # 0.86 X10^3/ul (0.83-4.51); Lymphocyte % 12.2 % (19-41); Mean Corp Hgb Conc 29.8 g/dL (32-36); Mean Corpuscular Hgb 26.2 pg (27.0-32.0); Mean Corpuscular Volume 88.1 fL (81-99); Mean Platelet Vol. 9.8 fl (6.2-12.0); Monocyte# 0.62 X10^3/uL; Monocyte% 8.8 % (0-10); NRBC Flagged by Analyzer 0.4 % (0-5); Neutrophil # 5.33 X10^3/uL (2.7-7.7); Neutrophil % 75.4 % (47-70); Platelet Count 292 K/mm3 (150-450); RBC Distribution Width CV 15.4 % (11.6-14.6); Red Blood Count 4.04 M/mm3 (4.2-5.4); White Blood Count 7.1 K/mm3 (4.4-11.0)
[2021-07-02 17:28] LABS: Vitamin D,25 Hydroxy 33.2 ng/mL
[2021-07-02 17:44] LABS: ALB/GLOB Ratio 0.7 RATIO (0.9-2.4); AST(SGOT) 21 U/L (15-37); Alanine Aminotransfer ALT/SGPT 19 U/L (13-56); Albumin, Serum 3.1 g/dL (3.2-5.0); Alkaline Phosphatase 80 U/L (45-117); Anion Gap 10 (5-15); BUN 19 mg/dL (7-18); BUN/Creat Ratio 12.3 RATIO (10-20); Calcium,Total 9.6 mg/dL (8.5-10.1); Chloride 107 mmol/L (98-107); Creatinine, Serum 1.55 mg/dL (0.55-1.02); EST Glomerular Filtration Rate 38 mL/min (>60); Est Glom Filt Rate - Afr Amer 46 mL/min (>60); Globulin 4.4 g/dL (2.2-4.2); Glucose 155 mg/dL (74-106); Potassium 4.6 mmol/L (3.5-5.1); Protein, Total 7.5 g/dL (6.4-8.2); Sodium Level 139 mmol/L (136-145); Thyroid Stim Hormone (TSH) 0.73 uIU/mL (0.358-3.74)
== END ==
PROVIDERS: PCP Family Medicine Geriatric Medicine; Visit Provider Family Medicine Geriatric Medicine
DX: I10 Essential (primary) hypertension (principal); E55.9 Vitamin D deficiency, unspecified
CPT/HCPCS: 36415; 80053; 82306; 84443; 85025

== ENCOUNTER 2021-09-30 14:09 | Outpatient (CLI) | payer MEDICARE, MEDICAID, SELFPAY ==
[2021-09-30 16:13] LABS: Absolute Lymphocyte Count 1.41 X10^3/uL (0.83-4.51); Absolute Neutrophil Count 2.4 X10^3/uL (2.0-7.7); Basophil# 0.02 X10^3/uL; Basophil% 0.4 % (0-1); Eosinophil# 0.01 X10^3/uL; Eosinophils% 0.2 % (0-5); Hematocrit 41.7 % (37-47); Lymphocyte # 1.41 X10^3/ul (0.83-4.51); Lymphocyte % 31.4 % (19-41); Mean Corp Hgb Conc 28.8 g/dL (32-36); Mean Corpuscular Hgb 22.5 pg (27.0-32.0); Mean Corpuscular Volume 78.2 fL (81-99); Mean Platelet Vol. 9.5 fl (6.2-12.0); Monocyte# 0.62 X10^3/uL; Monocyte% 13.8 % (0-10); NRBC Flagged by Analyzer 0 % (0-5); Neutrophil # 2.37 X10^3/uL (2.7-7.7); Neutrophil % 52.9 % (47-70); Platelet Count 254 K/mm3 (150-450); RBC Distribution Width CV 19.6 % (11.6-14.6); RBC Distribution Width SD 53.1 fl (35.1-43.9); Red Blood Count 5.33 M/mm3 (4.2-5.4); White Blood Count 4.5 K/mm3 (4.4-11.0)
[2021-09-30 16:28] LABS: Vitamin D,25 Hydroxy 31.1 ng/mL
[2021-09-30 16:34] LABS: ALB/GLOB Ratio 0.7 RATIO (0.9-2.4); AST(SGOT) 25 U/L (15-37); Alanine Aminotransfer ALT/SGPT 21 U/L (13-56); Albumin, Serum 3.3 g/dL (3.2-5.0); Alkaline Phosphatase 81 U/L (45-117); Anion Gap 10 (5-15); BUN 9 mg/dL (7-18); BUN/Creat Ratio 8.4 RATIO (10-20); Calcium,Total 9.8 mg/dL (8.5-10.1); Chloride 105 mmol/L (98-107); Creatinine, Serum 1.07 mg/dL (0.55-1.02); EST Glomerular Filtration Rate 58 mL/min (>60); Est Glom Filt Rate - Afr Amer 70 mL/min (>60); Globulin 4.8 g/dL (2.2-4.2); Glucose 311 mg/dL (74-106); Potassium 4.1 mmol/L (3.5-5.1); Protein, Total 8.1 g/dL (6.4-8.2); Sodium Level 136 mmol/L (136-145); Thyroid Stim Hormone (TSH) 0.63 uIU/mL (0.358-3.74)
== END 2021-09-30 23:59 | disposition short-term general hospital (02) ==
LOC: POLAB3 14:14
PROVIDERS: PCP Family Medicine Geriatric Medicine; Visit Provider Family Medicine Geriatric Medicine
DX: E11.9 Type 2 diabetes mellitus without complications (principal); E55.9 Vitamin D deficiency, unspecified; I10 Essential (primary) hypertension
CPT/HCPCS: 36415; 80053; 82306; 84443; 85025

== ENCOUNTER 2021-10-01 13:23 | Outpatient (CLI) | payer MEDICARE, MEDICAID, SELFPAY | END 2021-10-01 23:59 | disposition short-term general hospital (02) | LOC: PSN 13:25 | PROVIDERS: PCP Family Medicine Geriatric Medicine; Referring Provider Family Medicine Geriatric Medicine; Visit Provider Family Medicine Geriatric Medicine | DX: U07.1 COVID-19 (principal) | CPT/HCPCS: 87635; 87804; 87807; C9803; U0003; U0005 ==

== ENCOUNTER → 2021-12-30 | Outpatient (CLI) | payer MEDICARE, MEDICAID, SELFPAY ==
[2021-12-30 17:21] LABS: Absolute Lymphocyte Count 1.22 X10^3/uL (0.83-4.51); Absolute Neutrophil Count 3.9 X10^3/uL (2.0-7.7); Basophil# 0.02 X10^3/uL; Basophil% 0.3 % (0-1); Eosinophil# 0.03 X10^3/uL; Eosinophils% 0.5 % (0-5); Hematocrit 45.1 % (37-47); Hemoglobin 13.7 g/dL (12.0-15.0); Lymphocyte # 1.22 X10^3/ul (0.83-4.51); Lymphocyte % 20.3 % (19-41); Mean Corp Hgb Conc 30.4 g/dL (32-36); Mean Corpuscular Hgb 24.7 pg (27.0-32.0); Mean Corpuscular Volume 81.4 fL (81-99); Mean Platelet Vol. 10.4 fl (6.2-12.0); Monocyte# 0.75 X10^3/uL; Monocyte% 12.5 % (0-10); NRBC Flagged by Analyzer 0 % (0-5); Neutrophil # 3.92 X10^3/uL (2.7-7.7); Neutrophil % 65.2 % (47-70); POSITIVE MORPHOLOGY YES; Platelet Count 269 K/mm3 (150-450); RBC Distribution Width CV 20.2 % (11.6-14.6); RBC Distribution Width SD 56.8 fl (35.1-43.9); Red Blood Count 5.54 M/mm3 (4.2-5.4)
[2021-12-30 17:29] LABS: Differential Indicated SCAN CRITERIA MET
[2021-12-30 17:38] LABS: Vitamin D,25 Hydroxy 44.6 ng/mL
[2021-12-30 17:46] LABS: ALB/GLOB Ratio 0.7 RATIO (0.9-2.4); AST(SGOT) 47 U/L (15-37); Alanine Aminotransfer ALT/SGPT 32 U/L (13-56); Albumin, Serum 3.3 g/dL (3.2-5.0); Alkaline Phosphatase 63 U/L (45-117); Anion Gap 7 (5-15); BUN 15 mg/dL (7-18); BUN/Creat Ratio 13.6 RATIO (10-20); Calcium,Total 10.1 mg/dL (8.5-10.1); Chloride 106 mmol/L (98-107); EST Glomerular Filtration Rate 56 mL/min (>60); Est Glom Filt Rate - Afr Amer 68 mL/min (>60); Globulin 4.8 g/dL (2.2-4.2); Glucose 255 mg/dL (74-106); Potassium 4.3 mmol/L (3.5-5.1); Protein, Total 8.1 g/dL (6.4-8.2); Sodium Level 135 mmol/L (136-145); Thyroid Stim Hormone (TSH) 0.52 uIU/mL (0.358-3.74)
[2021-12-30 17:58] LABS: Differential Comment SCANNED
[2021-12-30 17:59] LABS: Red Cell Morphology NORM C+C NORMAL (NORM C&C)
== END | disposition home or self-care (01) ==
LOC: POLAB3 15:16
PROVIDERS: PCP Family Medicine Geriatric Medicine; Visit Provider Family Medicine Geriatric Medicine
DX: E11.9 Type 2 diabetes mellitus without complications (principal); E55.9 Vitamin D deficiency, unspecified; I10 Essential (primary) hypertension
CPT/HCPCS: 36415; 80053; 82306; 84443; 85025

== ENCOUNTER 2022-01-04 09:14 | Emergency (ER) | payer MEDICARE, MEDICAID, SELFPAY ==
[2022-01-04 09:15] VITALS: BP 143/97; PULSE 115; RESP 30; TEMP 36.4; O2SAT 97; BMI 26.6
[2022-01-04 09:19] VITALS: BP 143/97; PULSE 111; RESP 25; TEMP 36.4; O2SAT 95
--- NOTE | 2022-01-04 09:56 | ED.VIS.GI ---
HPI HPI - GI History of Present Illness Chief Complaint: Diarrhea Informant: patient Abdominal Pain/Flank Pain Onset: Yesterday Context: Gradual Onset Timing: Continuous Quality: Dull Location: Diffuse Worsened by: Nothing Relieved by: Nothing Nausea/Vomiting/Emesis GI Symptom: Positive for Nausea and Vomiting Onset: Today Quality: Positive for Nonbilious; Negative for Blood streaks, Coffee ground and Hematemesis Episodes: 1 Diarrhea/Melena/Hematochezia GI Symptom: Positive for Diarrhea; Negative for Melena and Hematochezia Onset: Yesterday Stool Quality: Positive for Watery Episodes: 8 Associated Symptoms Associated Symptoms: Negative for Dysuria, Frequency and Hematuria Narrative Narrative: Patient presents with diarrhea that began last night. Patient states it is watery. Patient denies any melena or hematochezia. Patient states it has been constant since last night. Patient started having some nausea and vomiting today. Patient also admits to some mild abdominal pain. Patient denies any hematemesis or coffee-ground emesis. Patient had one episode of vomiting when she got to the emergency department today. Patient admits to some subjective chills but denies any fevers. Patient admits to some chest pain or shortness of breath. 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 Narcolepsy Non-rheumatic tricuspid valve insufficiency Nonrheumatic mitral (valve) insufficiency Osteopenia Prolonged QT interval Secondary pulmonary arterial hypertension SLE (systemic lupus erythematosus) Vitamin D deficiency Home Medications cyclosporine modified 25 mg capsule 50 mg PO BREAKFAST cap 07/08/20 [History Last Taken 07/17/20] ipratropium bromide 42 mcg (0.06 %) nasal spray 1 spray INTRANASAL BID ml 07/08/20 [History Last Taken 07/16/20] metformin 500 mg tablet,extended release 24 hr 1,000 mg PO DAILY tab 07/08/20 [History Last Taken 07/16/20] mycophenolate mofetil 250 mg capsule 500 mg PO Q12H cap 07/08/20 [History Last Taken 07/17/20] prednisone 5 mg tablet 5 mg PO DAILY tab 07/08/20 [History Last Taken 11/04/20] levocetirizine 5 mg PO DAILY 07/17/20 [History Last Taken 07/17/20] blood sugar diagnostic #10 ea 11/04/20 [History Last Taken Unknown] diclofenac sodium 1 % topical gel 1 ea TOPICAL PRN PRN 11/04/20 [History Last Taken Unknown] lancets 33 gauge #100 ea 11/04/20 [History Last Taken Unknown] lancets 33 gauge #360 ea 03/31/21 [Rx Last Taken Unknown] pregabalin 150 mg capsule 150 mg PO BID cap 03/31/21 [History Last Taken Unknown] OneTouch Verio test strips #360 ea NS 04/17/21 [Rx Last Taken Unknown] carvedilol 25 mg tablet 37.5 mg PO BID tab 06/10/21 [History Last Taken Unknown] hydroxychloroquine 200 mg tablet 200 mg PO DAILY tab 07/08/21 [History Last Taken Unknown] dextroamphetamine sulfate 15 mg tablet 30 mg PO BREAKFAST 08/26/21 [History Last Taken Unknown] hydralazine 25 mg tablet 25 mg PO 4X/DAY 08/26/21 [History Last Taken Unknown] oxycodone 5 mg tablet 5 mg PO DAILY PRN PRN 08/26/21 [History Last Taken Unknown] pen needle, diabetic 31 gauge x 3/16 #100 ea 10/27/21 [Rx Last Taken Unknown] acetaminophen 500 mg tablet 500 mg PO Q6H PRN 11/25/21 [History Last Taken Unknown] duloxetine 60 mg capsule,delayed release 60 mg PO DAILY cap 11/25/21 [History Last Taken Unknown] mirtazapine 15 mg tablet 7.5 - 15 mg PO QHS 11/25/21 [History Last Taken Unknown] desvenlafaxine succinate 25 mg tablet,extended release 24 hr 25 mg PO DAILY 12/31/21 [History Last Taken Unknown] solriamfetol 75 mg tablet 75 mg PO DAILY 12/31/21 [History Last Taken Unknown] cevimeline [Evoxac] 1 cap PO TID 01/04/22 [History Last Taken Unknown] cyclosporine 75 mg PO QHS 01/04/22 [History Last Taken Unknown] dextroamphetamine sulfate 15 mg PO LUNCH 01/04/22 [History Last Taken Unknown] glimepiride 4 mg PO BID 01/04/22 [History Last Taken Unknown] insulin degludec [Tresiba FlexTouch U-100] 18 unit SUBCUT QHS 01/04/22 [History Last Taken Unknown] insulin lispro [Humalog KwikPen Insulin] 0 unit SUBCUT TID 01/04/22 [History Last Taken Unknown] ketoconazole 1 applic TOPICAL DAILY 01/04/22 [History Last Taken Unknown] ondansetron 4 mg PO Q8H PRN PRN #10 tab 01/04/22 [Rx Last Taken Unknown] sitagliptin [Januvia] 50 mg PO DAILY 01/04/22 [History Last Taken Unknown] Allergy/AdvReac Type Severity Reaction Status Date / Time LONG Inhibitors Allergy Angioedema Verified 01/04/22 09:20 adhesive Allergy Rash Verified 01/04/22 09:20 lisinopril Allergy Angioedema Verified 01/04/22 09:20 Sulfa (Sulfonamide Allergy Rash Verified 01/04/22 09:20 Antibiotics) sulfamethoxazole Allergy Rash Verified 01/04/22 09:20 [From Bactrim] trimethoprim [From Bactrim] Allergy Rash Verified 01/04/22 09:20 tuberculin, purified protein Allergy Unknown Verified 01/04/22 09:20 deriva Angioderm AdvReac Unknown Unknown Uncoded 01/04/22 09:20 Family History Mother Hypertension Kidney disease ALS (amyotrophic lateral sclerosis) Father Heart disease Hypertension Kidney disease Diabetes Surgical History Hip replacement planned History of esophagogastroduodenoscopy (EGD) History of left heart catheterization (03/08/20) Kidney transplant recipient port removed revision of right hip arthroplasty (05/10/19) S/P colonoscopy S/P lymph node biopsy S/P nasal polypectomy Status post carpal tunnel release Status post total hip replacement, bilateral Social History Smoking Status: Former smoker alcohol intake: never substance use type: does not use caffeine: No what type of physical activity do you participate in: other details: PT seatbelt use: always do you feel safe at home: Yes additional social history: Single ROS ROS ED Constitutional Constitutional ED: Reports chills and subjective; Denies fever(s) Eyes Eyes: Denies blurry vision or change in vision ENT ENT ED: Denies rhinorrhea or sore throat Cardiovascular Cardiovascular: Reports chest pain; Denies palpitations Respiratory/Chest Respiratory/Chest: Reports dyspnea; Denies cough Gastrointestinal Gastrointestinal: Reports abdominal pain, diarrhea, nausea and vomiting Genitourinary Genitourinary ED: Denies dysuria or hematuria Musculoskeletal Musculoskeletal: Reports back pain and neck pain Integumentary Denies abscess or rash Neurologic Neurologic: Reports headache(s); Denies weakness Allergic/Immunologic Allergic/Immunologic ED: Denies mouth swelling or urticaria EXAM Physical Exam Const Vital Signs: 01/04/22 09:15 01/04/22 09:19 01/04/22 11:33 Temperature 97.5 F L 97.5 F L Temperature Source Temporal Temporal Pulse Rate 115 H 111 H 117 H Respiratory Rate 30 H 25 H 18 Blood Pressure 143/97 H 143/97 H 126/95 H Blood Pressure Mean 112 112 105 Pulse Ox 97 95 93 Oxygen Delivery Method Room Air Room Air Room Air Positive well nourished and well developed General Appearance ED: well developed and NAD HEENT Reports moist mucous membranes Neck supple and no JVD Resp normal respiratory effort and clear to auscultation bilaterally Cardio regular rate, regular rhythm and no murmurs GI normal to inspection, nondistended, normoactive bowel sounds and non-tender Palpation: soft Extremity normal to inspection General Extremety ED: Negative for edema or tenderness General Extremity: Negative for edema Neuro oriented x3, CN's II-XII intact bilaterally and no sensory deficits noted Sensorium / Orientation: alert Motor Exam: strength 5/5 throughout Psych mental status grossly normal Skin no rashes or lesions noted MDM MDM MDM Narrative Medical decision making narrative: Patient was given IV fluids here. Patient was given morphine, Benadryl, and Reglan. CBC shows a white blood cell count of 4.3. Hemoglobin was 17.5 and hematocrit was 57.9. Platelets were normal. Comprehensive metabolic profile shows a creatinine of 1.47 and BUN of 25. These are consistent with prior results. CO2 was slightly low at 19. Glucose was 297. Anion gap was normal. Lipase was normal. Urinalysis does not show any evidence of urinary tract infection. EKG was obtained. On my interpretation it shows sinus tachycardia with a rate of 115. There is ST elevation in leads V1 through V4. However, this was unchanged compared to previous EKG dated 07/17/2020. Since the EKG is unchanged from 07/17/2020, I do not feel this is an acute STEMI. STEMI alert was not called. Troponin was normal. Patient was given a second liter of IV fluids. Patient is feeling better on reevaluation. Patient was given prescriptions for Zofran. Patient was instructed to start with a liquid diet and advance as tolerated. Patient understood and was agreeable with the plan. All questions were answered. Lab Data Attestation: I reviewed the patient's lab results. Labs: Laboratory Results - last 24 hr 01/04/22 01/04/22 01/04/22 10:35 10:35 11:10 WBC 4.3 L RBC 7.16 H Hgb 17.5 H Hct 57.9 H MCV 80.9 L MCH 24.4 L MCHC 30.2 L RDW Std Deviation 55.8 H RDW Coeff of Jah 21.2 H Plt Count 275 MPV 9.4 Immature Gran % (Auto) 0.900 Neut % (Auto) 85.1 H Lymph % (Auto) 4.9 L [place] % (Auto) 7.9 Eos % (Auto) 0.5 Baso % (Auto) 0.7 Absolute Neuts (auto) 3.7 Absolute Lymphs (auto) 0.21 L Nucleated RBC % 0.7 Polychromasia 1+ Anisocytosis 1+ Sodium 136 Potassium 4.8 Chloride 109 H Carbon Dioxide 19.0 L Anion Gap 8 BUN 25 H Creatinine 1.47 H Estim Creat Clear Calc 39.98 Est GFR (MDRD) Af Amer 49 L Est GFR (MDRD) Non-Af 40 L BUN/Creatinine Ratio 17.0 Glucose 297 H Calcium 10.6 H Total Bilirubin 1.10 H AST 68 H ALT 46 Alkaline Phosphatase 63 Troponin I High Sens 50 Total Protein 8.6 H Albumin 3.6 Globulin 5.0 H Albumin/Globulin Ratio 0.7 L Lipase 50 L Urine Color Yellow Urine Clarity Clear Urine pH 5.0 Ur Specific [place] 1.020 Urine Protein 30 H Urine Glucose (UA) 50 H Urine Ketones Negative Urine Occult Blood Negative Urine Nitrite Negative Urine Bilirubin Negative Urine Urobilinogen Normal Ur Leukocyte Esterase Negative Urine RBC 0-5 SEEN Urine WBC 0-5 SEEN Ur Squamous Epith Cells 0-5 SEEN Urine Bacteria RARE Urine Mucus 1+ EKG Initial EKG: Attestation: I personally reviewed and interpreted this EKG as follows: Interpretation: Sinus Tachycardia (115) and S-T Elevation (V1 through V4) Prior EKG tracings: available for review Prior: Unchanged (07/17/2020) Discharge Plan Triage Chief Complaint: Diarrhea ED Provider: Javi Barba Dx/Rx/DC Orders Clinical Impression: Nausea vomiting and diarrhea, Mild dehydration Instructions: ED Dehydration (Adult), ED Vomiting and Diarrhea ... Prescriptions: New ondansetron [ondansetron] 4 MG tablet 4 mg PO Q8H PRN PRN (Reason: Nausea) Qty: 10 RF: 0 No Action ipratropium bromide 42 mcg (0.06 %) spray,non-aerosol 1 spray INTRANASAL BID RF: 0 metformin 500 mg tablet extended release 24 hr 1,000 mg PO DAILY RF: 0 mycophenolate mofetil 250 mg capsule 500 mg PO Q12H RF: 0 cyclosporine modified 25 mg capsule 50 mg PO BREAKFAST RF: 0 (DME) blood sugar diagnostic Strip See Rx Instructions ea .ROUTE .MEDSUPPLY Qty: 10 RF: 0 diclofenac sodium 1 % gel 1 ea TOPICAL PRN PRN (Reason: Pain) RF: 0 (DME) lancets 33 gauge misc See Rx Instructions ea .ROUTE .MEDSUPPLY Qty: 100 RF: 0 pregabalin 150 mg capsule 150 mg PO BID RF: 0 (DME) lancets [OneTouch Delica Lancets] 33 gauge misc See Rx Instructions .ROUTE .MEDSUPPLY Qty: 360 RF: 3 carvedilol 25 mg tablet 37.5 mg PO BID RF: 0 hydralazine 25 mg tablet 25 mg PO 4X/DAY RF: 0 oxycodone 5 mg tablet 5 mg PO DAILY PRN PRN (Reason: Pain) RF: 0 dextroamphetamine sulfate 15 mg tablet 30 mg PO BREAKFAST RF: 0 acetaminophen 500 mg tablet 500 mg PO Q6H PRN (Reason: pain/fever) RF: 0 mirtazapine 15 mg tablet 7.5 - 15 mg PO QHS RF: 0 desvenlafaxine succinate 25 mg tablet extended release 24 hr 25 mg PO DAILY RF: 0 [place] 75 mg tablet 75 mg PO DAILY RF: 0 hydroxychloroquine 200 mg tablet 200 mg PO DAILY RF: 0 prednisone 5 mg tablet 5 mg PO DAILY RF: 0 levocetirizine 5 MG tablet 5 mg PO DAILY RF: 0 duloxetine 60 mg capsule,delayed release(DR/EC) 60 mg PO DAILY RF: 0 ketoconazole 2 % Shampoo 1 applic TOPICAL DAILY RF: 0 cyclosporine 25 mg Capsule 75 mg PO QHS RF: 0 cevimeline [Evoxac] 30 mg Capsule 1 cap PO TID RF: 0 Januvia 50 mg Tablet 50 mg PO DAILY RF: 0 dextroamphetamine sulfate 15 mg Tablet 15 mg PO LUNCH RF: 0 glimepiride 4 mg tablet 4 mg PO BID RF: 0 insulin lispro [Humalog KwikPen Insulin] 100 unit/mL insulin pen 0 unit subcut TID RF: 0 Tresiba FlexTouch U-100 100 unit/mL (3 mL) insulin pen 18 unit subcut QHS RF: 0 (DME) OneTouch Verio test strips Strip See Rx Instructions .ROUTE .MEDSUPPLY Qty: 360 RF: 3 (DME) pen needle, diabetic [BD Ultra-Fine Mini Pen Needle] 31 gauge x 3/16 needle See Rx Instructions .ROUTE .MEDSUPPLY Qty: 100 RF: 3 Primary Care Provider: Mitchell Bowen Chi Referrals: Mitchell Bowen Chi, MD [Primary Care Provider] - 3-5 Days Disposition Disposition: Home, Self Care
--- NOTE | 2022-01-04 10:01 | EKG12_ITS ---
Test Reason : ABD PAIN Blood Pressure : / mmHG Vent. Rate : 115 BPM Atrial Rate : 115 BPM P-R Int : 122 ms QRS Dur : 082 ms QT Int : 306 ms P-R-T Axes : 065 042 044 degrees QTc Int : 423 ms AGE AND GENDER SPECIFIC ECG ANALYSIS Sinus tachycardia Right atrial enlargement ST elevation consider anterior injury or acute infarct ACUTE FL / STEMI Abnormal ECG Confirmed by DALE GARCIA, ISABELA ([id number]), brands editor MARC RODRIGUEZ ([id number]) on 01/06/2022 8:43:02 AM Referred By: STEPHEN Confirmed By:ISABELA HUNTER MD
[2022-01-04 10:40] LABS: Absolute Lymphocyte Count 0.21 X10^3/uL (0.83-4.51); Absolute Neutrophil Count 3.7 X10^3/uL (2.0-7.7); Basophil# 0.03 X10^3/uL; Basophil% 0.7 % (0-1); Eosinophil# 0.02 X10^3/uL; Eosinophils% 0.5 % (0-5); Hemoglobin 17.5 g/dL (12.0-15.0); Lymphocyte # 0.21 X10^3/ul (0.83-4.51); Lymphocyte % 4.9 % (19-41); Mean Corp Hgb Conc 30.2 g/dL (32-36); Mean Corpuscular Hgb 24.4 pg (27.0-32.0); Mean Corpuscular Volume 80.9 fL (81-99); Mean Platelet Vol. 9.4 fl (6.2-12.0); Monocyte# 0.34 X10^3/uL; Monocyte% 7.9 % (0-10); NRBC Flagged by Analyzer 0.7 % (0-5); Neutrophil # 3.66 X10^3/uL (2.7-7.7); Neutrophil % 85.1 % (47-70); POSITIVE DIFFERENTIAL YES; POSITIVE MORPHOLOGY YES; Platelet Count 275 K/mm3 (150-450); RBC Distribution Width CV 21.2 % (11.6-14.6); RBC Distribution Width SD 55.8 fl (35.1-43.9); Red Blood Count 7.16 M/mm3 (4.2-5.4); White Blood Count 4.3 K/mm3 (4.4-11.0)
[2022-01-04] MEDS: 0.9% Normal Saline 1,000 ML 1000 ML IV ×2 (10:48→12:38)
[2022-01-04] MEDS: Metoclopramide 10 MG/2 ML Vial IV (10:49)
[2022-01-04] MEDS: Morphine 4 MG/ML Syringe IV (10:49)
[2022-01-04] MEDS: DiphenhydrAMINE 50 MG/ML Syringe 25 MG IV (10:49)
[2022-01-04 10:54] LABS: Hematocrit 57.9 % (37-47)
[2022-01-04 10:55] LABS: Differential Indicated SCAN CRITERIA MET
[2022-01-04 10:57] LABS: ALB/GLOB Ratio 0.7 RATIO (0.9-2.4); AST(SGOT) 68 U/L (15-37); Alanine Aminotransfer ALT/SGPT 46 U/L (13-56); Albumin, Serum 3.6 g/dL (3.2-5.0); Alkaline Phosphatase 63 U/L (45-117); Anion Gap 8 (5-15); BUN 25 mg/dL (7-18); Calcium,Total 10.6 mg/dL (8.5-10.1); Chloride 109 mmol/L (98-107); Creatinine, Serum 1.47 mg/dL (0.55-1.02); EST Glomerular Filtration Rate 40 mL/min (>60); Est Glom Filt Rate - Afr Amer 49 mL/min (>60); Estimated Creatinine Clearance 39.98 ml/min; Glucose 297 mg/dL (74-106); Lipase 50 U/L (73-393); Potassium 4.8 mmol/L (3.5-5.1); Protein, Total 8.6 g/dL (6.4-8.2); Sodium Level 136 mmol/L (136-145); Troponin-I HS 50 pg/mL (3.0-54.0)
[2022-01-04 11:21] LABS: Anisocytosis 1+; Polychromasia 1+
[2022-01-04 11:33] VITALS: BP 126/95; PULSE 117; RESP 18; O2SAT 93
[2022-01-04 11:36] LABS: Color, Urine Yellow (Yellow); Glucose, Dipstick 50 mg/dl (Normal); Ketone-Dipstick Negative (Negative); Leukocyte Esterase-Dipstick Negative /ul (Negative); Nitrite-Dipstick Negative (Negative); Occult Blood-Urine Negative /ul (Negative); Protein-Dipstick 30 mg/dl (Negative); Urine Bilirubin Dipstick Negative (Negative); Urine Clarity Clear (Clear); Urine Urobilinogen Normal (Normal)
[2022-01-04 11:49] LABS: Red Blood Cells-Urine 0-5 SEEN /hpf (0-5); Squamous Epithelial Cells - UA 0-5 SEEN /hpf (5-10); White Blood Cells 0-5 SEEN /hpf (0-5)
[2022-01-04 11:50] LABS: Bacteria RARE /hpf (None Seen); Mucous, Urine 1+ /hpf (<or=2+)
[2022-01-04 13:34] VITALS: BP 110/73; PULSE 108; RESP 18; TEMP 37.3
[2022-01-04 14:15] VITALS: BP 139/82; PULSE 71; RESP 14; O2SAT 99
[2022-01-05 13:31] LABS: Pathologist Review Reviewed
== END 2022-01-04 14:15 | disposition home or self-care (01) ==
PROVIDERS: Emergency Provider Emergency Medicine; PCP Family Medicine Geriatric Medicine; Visit Provider Emergency Medicine
DX: R11.2 Nausea with vomiting, unspecified (principal); M32.9 Systemic lupus erythematosus, unspecified; I36.1 Nonrheumatic tricuspid (valve) insufficiency; I34.0 Nonrheumatic mitral (valve) insufficiency; R19.7 Diarrhea, unspecified; R10.9 Unspecified abdominal pain; E86.0 Dehydration; Z87.891 Personal history of nicotine dependence; I10 Essential (primary) hypertension; M85.80 Other specified disorders of bone density and structure, unspecified site
CPT/HCPCS: 80053; 81001; 83690; 84484; 85025; 93005; 99285; J7030

== ENCOUNTER → 2022-01-07 | Outpatient (CLI) | payer MEDICARE, MEDICAID, SELFPAY | END | disposition home or self-care (01) | LOC: LAB 15:22 | PROVIDERS: PCP Family Medicine Geriatric Medicine; Visit Provider Family Medicine Geriatric Medicine | DX: R19.7 Diarrhea, unspecified (principal) | CPT/HCPCS: 82274; 83630; 87177; 87209; 87493; 87506 ==

== ENCOUNTER → 2022-01-22 | Outpatient (CLI) | payer MEDICARE, MEDICAID, SELFPAY | END | disposition home or self-care (01) | PROVIDERS: PCP Family Medicine Geriatric Medicine; Referring Provider Dermatology; Visit Provider Dermatology | DX: L65.0 Telogen effluvium (principal); L64.8 Other androgenic alopecia; L21.8 Other seborrheic dermatitis; B35.1 Tinea unguium | CPT/HCPCS: 87077; 87101 ==

== ENCOUNTER → 2022-02-04 | Outpatient (CLI) | payer MEDICARE, MEDICAID, SELFPAY | END | disposition home or self-care (01) | LOC: LABSPEC 14:58 | PROVIDERS: PCP Family Medicine Geriatric Medicine; Visit Provider Family Medicine Geriatric Medicine | DX: N39.0 Urinary tract infection, site not specified (principal) | CPT/HCPCS: 87077; 87086; 87088; 87186 ==

== ENCOUNTER → 2022-02-25 | Outpatient (CLI) | payer MEDICARE, MEDICAID, SELFPAY ==
--- NOTE | 2022-02-25 07:09 | ECHOD_ITS ---
Reason For Study: DYSPNEA/SOB Procedure This was a 2D Doppler, Color Flow transthoracic echocardiogram. The study was technically difficult. Exam performed in department. Left Ventricle Normal LV size. Severe concentric left ventricular hypertrophy. Left ventricular systolic function is normal. The estimated ejection fraction is 60 %. No evidence for diastolic dysfunction. No regional wall motion abnormalities noted. Right Ventricle Normal RV size. Normal systolic function. Atria The left atrium is mildly enlarged. Normal right atrium. No doppler evidence for ASD. Mitral Valve There is no mitral annular calcification. Mild diffuse mitral valve thickening. Mild (1+) mitral valve insufficiency. Tricuspid Valve Poor coaptation of the tricuspid valve apparatus. Moderate (2+) tricuspid valve insufficiency. Right ventricular systolic pressure estimated to be 32 mmHg. Aortic Valve Trisinus/trileaflet aortic valve. Mild focal aortic valve calcification. Trivial aortic valve insufficiency. Pulmonic Valve The pulmonic valve is not well visualized. Great Vessels Normal sized aortic root. Pericardium/Pleural No pericardial effusion. MMode/2D Measurements & Calculations LVIDd: 4.1 cm IVSd: 1.5 cm Ao root diam: 3.2 cm LVIDs: 2.7 cm LVPWd: 1.3 cm RVDd: 3.6 cm FS: 34.8 % LAV(MOD-bp): 42.2 ml LVAd ap4: 24.7 cm2 SV(MOD-sp4): 40.7 ml LAV(MOD-bp) Indexed: 24.1 ml/m2 LVLd ap4: 7.1 cm LAV(MOD-sp2): 40.2 ml EDV(MOD-sp4): 69.7 ml LAV(MOD-sp4): 43.6 ml EDV(sp4-el): 72.5 ml LVAs ap4: 14.7 cm2 LVLs ap4: 6.2 cm ESV(MOD-sp4): 29.0 ml ESV(sp4-el): 29.7 ml EF(MOD-sp4): 58.4 % EF(sp4-el): 59.0 % SV(sp4-el): 42.8 ml LA A4 area: 16.8 cm2 LA dimension(2D): 3.4 cm RA A4 area: 14.3 cm2 Time Measurements MV dec time: 0.17 sec Doppler Measurements & Calculations MV E max ortiz: 74.8 cm/sec Lat Peak E' Ortiz: 8.5 cm/sec Med Peak E' Ortiz: 5.7 cm/sec MV A max ortiz: 75.6 cm/sec E/E' lat: 8.8 E/E' med: 13.1 MV E/A: 0.99 Ao V2 max: 128.6 cm/sec AI max ortiz: 532.5 cm/sec LV V1 max: 81.8 cm/sec Ao max P.6 mmHg AI max P.4 mmHg LV V1 max P.7 mmHg AI dec slope: 432.9 cm/sec2 AI P1/2t: 360.2 msec PA V2 max: 76.8 cm/sec TR max ortiz: 268.5 cm/sec TR max P.8 mmHg ECHO/Echo Complete Interpretation Summary The study was technically difficult. Left ventricular systolic function is normal. The estimated ejection fraction is 60 %. Severe concentric left ventricular hypertrophy. The left atrium is mildly enlarged. Mild diffuse mitral valve thickening. Mild (1+) mitral valve insufficiency. Poor coaptation of the tricuspid valve apparatus. Moderate (2+) tricuspid valve insufficiency. Mild focal aortic valve calcification. Trivial aortic valve insufficiency. Right ventricular systolic pressure estimated to be 32 mmHg. No evidence for diastolic dysfunction. Ordering Physician: Traci Tesfaye/Eren Calvillo Referring Physician: BG QUINN Performed By: Amanda Greenberg RDCS
--- NOTE | 2022-02-25 14:33 | STRESSREP ---
Stress Test Report Pharmacologic my cardial perfusion stress test. 51-year-old lady with a history of chest pain. Stress protocol: Resting EKG demonstrates normal sinus rhythm with a rate of [address] elevation noted in leads II, III and aVF V2 through V6. 0.4 mg of regadenoson was infused per usual protocol followed by rapid intravenous saline flush injection continuous EKG monitoring was performed. The maximum heart rate attained was 88 bpm which was 51% of max impacted heart rate the maximum workload attained was 1 metabolic equivalent. At rest there were no ST or T wave changes noted to suggest ischemia. The upsloping ST changes persisted throughout. No clinical angina was noted. The resting blood pressure was 168/100 with a final blood pressure 142/90 mmHg. Myocardial perfusion protocol. 10.2 mCi of technetium 99m sestamibi was injected at rest. 0.4 mg of regadenoson was infused per usual protocol. At peak infusion 30.9 mCi of technetium 99m sestamibi was injected stress images were obtained stress and rest images were reconstructed and compared in the short axis vertical long and horizontal long axis. Gated images were also obtained. Perfusion SPECT analysis: Review of the stress images demonstrate normal uptake of tracer noted in all areas of the myocardium. The resting images similar demonstrate normal uptake of tracer noted in all areas of the myocardium. No areas of reversibility are noted to suggest ischemia and no previous infarct is noted. Gated SPECT analysis: The gated ejection fraction is 54%. Conclusion: Normal pharmacologic myocardial perfusion stress test. Preserved ejection fraction.
== END | disposition home or self-care (01) ==
LOC: CVS 06:57
PROVIDERS: PCP Family Medicine Geriatric Medicine; Visit Provider Physician Assistant Medical
DX: M32.9 Systemic lupus erythematosus, unspecified (principal); R06.00 Dyspnea, unspecified
CPT/HCPCS: 78452; 93017; 93306; A9500; A4216; J2785

== ENCOUNTER → 2022-03-03 | Outpatient (CLI) | payer MEDICARE, MEDICAID, SELFPAY ==
--- NOTE | 2022-03-03 14:03 | BI_ITS ---
MAMMOGRAPHY - BILATERAL SCREENING REASON FOR EXAM: Female, 51 years old. Routine annual screening examination. PERTINENT HISTORY: Non-contributory. TECHNIQUE: Digital bilateral breast oscar (3D mammographic acquisition) in the CC and MLO projections. 2-D mediolateral oblique (MLO) and craniocaudad (CC) views of both breasts were obtained. CAD: Full Field Digital Mammography with Computer Added Detection was performed. COMPARISON: Comparison is made with mammogram from 02/27/2021, 09/14/2019, 08/18/2018, 05/11/2017. FINDINGS: Breast Composition: The breasts are heterogeneously dense, which may obscure small masses. There are no dominant masses or suspicious calcifications. No other significant abnormalities are identified. There has been no significant change since the prior study. BI/SCRN MAMM (CAD)W/OSCAR BILAT IMPRESSION: Stable bilateral screening mammogram. Yearly follow-up mammogram recommended. (A) ASSESSMENT CATEGORY: BIRADS Category 1: Negative. A letter regarding these results will be sent to the patient by the facility within 30 days. Approximately 10% of breast cancers are not detected by mammography. A normal mammogram should not delay biopsy of a clinically suspicious abnormality. [id number] Electronically Signed: Jarrett Zimmer, at 8:13 EDT ,
== END | disposition home or self-care (01) ==
LOC: OPBI 14:00
PROVIDERS: PCP Family Medicine Geriatric Medicine; Visit Provider Nurse Practitioner Women's Health
DX: Z12.31 Encounter for screening mammogram for malignant neoplasm of breast (principal)
CPT/HCPCS: 77063; 77067

== ENCOUNTER 2022-03-05 13:00 | Outpatient (RCR) | payer MEDICARE, MEDICAID, SELFPAY | END 2022-03-12 23:59 | LOC: DC 13:00 | PROVIDERS: PCP Family Medicine Geriatric Medicine; Visit Provider Internal Medicine Endocrinology, Diabetes & Metabolism | DX: E11.9 Type 2 diabetes mellitus without complications (principal) | CPT/HCPCS: 97802; G0108 ==

== ENCOUNTER 2022-03-31 14:01 | Outpatient (RCR) | payer MEDICARE, MEDICAID, SELFPAY | END 2022-04-12 23:59 | LOC: DC 14:01 | PROVIDERS: PCP Family Medicine Geriatric Medicine; Referring Provider Internal Medicine Endocrinology, Diabetes & Metabolism; Visit Provider Internal Medicine Endocrinology, Diabetes & Metabolism | DX: E11.9 Type 2 diabetes mellitus without complications (principal) | CPT/HCPCS: 97803 ==

== ENCOUNTER → 2022-04-07 | Outpatient (CLI) | payer MEDICARE, MEDICAID, SELFPAY ==
[2022-04-07 16:25] LABS: Absolute Lymphocyte Count 1.22 X10^3/uL (0.83-4.51); Absolute Neutrophil Count 4.7 X10^3/uL (2.0-7.7); Basophil# 0.02 X10^3/uL; Basophil% 0.3 % (0-1); Eosinophil# 0.08 X10^3/uL; Eosinophils% 1.2 % (0-5); Hematocrit 43.8 % (37-47); Hemoglobin 13.4 g/dL (12.0-15.0); Lymphocyte # 1.22 X10^3/ul (0.83-4.51); Lymphocyte % 17.8 % (19-41); Mean Corp Hgb Conc 30.6 g/dL (32-36); Mean Corpuscular Hgb 28.2 pg (27.0-32.0); Mean Platelet Vol. 10.7 fl (6.2-12.0); Monocyte# 0.72 X10^3/uL; Monocyte% 10.5 % (0-10); NRBC Flagged by Analyzer 0 % (0-5); Neutrophil # 4.74 X10^3/uL (2.7-7.7); Platelet Count 148 K/mm3 (150-450); RBC Distribution Width SD 56.5 fl (35.1-43.9); Red Blood Count 4.76 M/mm3 (4.2-5.4); White Blood Count 6.9 K/mm3 (4.4-11.0)
[2022-04-07 16:48] LABS: Vitamin D,25 Hydroxy 45.2 ng/mL
[2022-04-07 17:03] LABS: ALB/GLOB Ratio 0.7 RATIO (0.9-2.4); AST(SGOT) 65 U/L (15-37); Alanine Aminotransfer ALT/SGPT 45 U/L (13-56); Albumin, Serum 3.3 g/dL (3.2-5.0); Alkaline Phosphatase 79 U/L (45-117); Anion Gap 8 (5-15); BUN 16 mg/dL (7-18); BUN/Creat Ratio 11.3 RATIO (10-20); Calcium,Total 10.1 mg/dL (8.5-10.1); Chloride 107 mmol/L (98-107); Creatinine, Serum 1.42 mg/dL (0.55-1.02); EST Glomerular Filtration Rate 42 mL/min (>60); Est Glom Filt Rate - Afr Amer 50 mL/min (>60); Globulin 4.5 g/dL (2.2-4.2); Glucose 198 mg/dL (74-106); Potassium 5.1 mmol/L (3.5-5.1); Protein, Total 7.8 g/dL (6.4-8.2); Sodium Level 138 mmol/L (136-145); Thyroid Stim Hormone (TSH) 1.46 uIU/mL (0.358-3.74)
[2022-04-07 17:04] LABS: BNP,B-Type NATRIURETIC PEPTIDE 568.3 pg/mL (0-100)
== END | disposition home or self-care (01) ==
LOC: POLAB3 13:59
PROVIDERS: PCP Family Medicine Geriatric Medicine; Visit Provider Family Medicine Geriatric Medicine
DX: E11.9 Type 2 diabetes mellitus without complications (principal); E55.9 Vitamin D deficiency, unspecified; I10 Essential (primary) hypertension; R06.02 Shortness of breath
CPT/HCPCS: 36415; 80053; 82306; 83880; 84443; 85025

== ENCOUNTER → 2022-04-29 | Outpatient (CLI) | payer MEDICARE, MEDICAID, SELFPAY ==
--- NOTE | 2022-04-29 09:23 | US_ITS ---
STUDY: ABDOMINAL ULTRASOUND - RIGHT UPPER QUADRANT REASON FOR VISIT: Female, 51 years old PAIN TECHNIQUE: Ultrasound evaluation of the right upper quadrant was performed with real-time and static batista-scale imaging. TECHNICAL QUALITY: Adequate. COMPARISON: CT scan abdomen pelvis obtained on 05/29/2021.. FINDINGS: Liver: The liver measures 17.4 cm. There is increased heterogeneous echogenicity of the liver. The bile ducts are within normal limits. There is hepatic color flow. The direction of portal flow is hepatopetal. There is no demonstrated mass lesion. Gallbladder: Normal distended gallbladder. The gallbladder wall measures 1.5 mm. There is a negative sonographic Gallegos''s sign. There is no pericholecystic fluid. There are no gallstones. Common Bile Duct (C.B.D.): The common bile duct measures 5.4 mm. Pancreas: Unremarkable size of the head of the pancreas. There is increased echogenicity of the pancreas. There is no demonstrated pancreatic mass or cyst. Limited evaluation of the body and tail due to bowel gas pattern. Right Kidney: The right kidney is small in size. The right kidney measures 8.1 x 4.8 x 3.4 cm. Unremarkable renal cortex. The right cortex measures 0.8 cm. There is no demonstrated renal mass or cyst. There is no right hydronephrosis. Transplant kidney visualized in the right lower quadrant demonstrating unremarkable echogenicity with no evidence of focal masses, no evidence of hydronephrosis or stones.Transplant kidney is prominent in size measuring 16.3 x 5.7 x 6.7 cm, transplant kidney cortex measures 2.0 cm. US/Abdomen Limited IMPRESSION: No evidence of acute abdominal pathology. Unremarkable transplant kidney. Hepatic steatosis Electronically Signed: Benigno Gibson MD at 14:01 EDT ,
== END | disposition home or self-care (01) ==
LOC: US 09:22
PROVIDERS: PCP Family Medicine Geriatric Medicine; Referring Provider Family Medicine Geriatric Medicine; Visit Provider Family Medicine Geriatric Medicine
DX: R10.9 Unspecified abdominal pain (principal)
CPT/HCPCS: 76705

== ENCOUNTER → 2022-04-30 | Outpatient (CLI) | payer MEDICARE, MEDICAID, SELFPAY ==
[2022-04-30 18:22] LABS: Anion Gap 6 (5-15); BUN 19 mg/dL (7-18); BUN/Creat Ratio 12.4 RATIO (10-20); Calcium,Total 10.9 mg/dL (8.5-10.1); Chloride 106 mmol/L (98-107); Creatinine, Serum 1.53 mg/dL (0.55-1.02); EST Glomerular Filtration Rate 38 mL/min (>60); Est Glom Filt Rate - Afr Amer 46 mL/min (>60); Glucose 155 mg/dL (74-106); Potassium 4.8 mmol/L (3.5-5.1); Sodium Level 138 mmol/L (136-145)
== END | disposition home or self-care (01) ==
LOC: LABSPEC 16:49
PROVIDERS: PCP Family Medicine Geriatric Medicine; Visit Provider Family Medicine Geriatric Medicine
DX: N18.6 End stage renal disease (principal); N39.0 Urinary tract infection, site not specified
CPT/HCPCS: 36415; 80048; 87086

== ENCOUNTER → 2022-05-13 | Outpatient (CLI) | payer MEDICARE, MEDICAID, SELFPAY ==
--- NOTE | 2022-05-13 10:00 | US_ITS ---
STUDY: ABDOMINAL ULTRASOUND - ELASTOGRAPHY REASON FOR VISIT: Female, 51 years old. Fatty infiltration of the liver. TECHNIQUE: Liver stiffness measurements were obtained on a Probity RS 85 ultrasound machine using a CA 1-7 probe following the SRU guidelines. 3 measurements were obtained using a 2-D-SWE method. The IQR/M was 22% suggesting a quality data set. TECHNICAL QUALITY: Adequate. COMPARISON: Comparison is made with prior study dated 04/29/2022. FINDINGS: Liver: There is fatty infiltration of the liver. Median liver stiffness measured 13.5 kPa. US/Elastography Parenchyma/Organ IMPRESSION: Liver stiffness measures 13.5 kPa compatible with F3-F4 (Moderate to severe liver fibrosis) Metavir score. Electronically Signed: Jonathan Garcia MD at 13:12 EDT ,
== END | disposition home or self-care (01) ==
LOC: US 09:58
PROVIDERS: PCP Family Medicine Geriatric Medicine; Referring Provider Family Medicine Geriatric Medicine; Visit Provider Family Medicine Geriatric Medicine
DX: K76.0 Fatty (change of) liver, not elsewhere classified (principal)
CPT/HCPCS: 76981

== ENCOUNTER 2022-06-22 11:11 | Emergency (ER) | payer MEDICARE, MEDICAID, SELFPAY ==
[2022-06-22 11:12] VITALS: BP 135/82; PULSE 84; RESP 18; TEMP 35.8; O2SAT 99; BMI 34.0
--- NOTE | 2022-06-22 12:07 | EDS_ITS ---
HPI History of Present Illness Chief Complaint: Abd Pain Informant: patient Onset/Context/Timing Onset: Month(s) (2) Context: Gradual Onset Timing: Continuous Quality: Tightness Location: Abdomen Worsened by: Nothing Relieved by: Nothing Narrative Narrative: Patient presents with fluid retention for the past 2 months. Patient states she feels like her abdomen is getting more swollen. Patient states she feels like there is tightness across her abdomen. Patient also admits to some increased swelling of her lower extremities. Patient admits to some mild dyspnea with exertion. Patient denies any orthopnea or paroxysmal nocturnal dyspnea. Patient has a history of kidney transplant and is on Lasix. Patient denies any fevers or chills. 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 Narcolepsy Non-rheumatic tricuspid valve insufficiency Nonrheumatic mitral (valve) insufficiency Osteopenia Prolonged QT interval Secondary pulmonary arterial hypertension SLE (systemic lupus erythematosus) Vitamin D deficiency Home Medications ipratropium bromide 42 mcg (0.06 %) nasal spray 1 spray intranasal BID 07/08/20 [History Last Taken 07/16/20] metformin 500 mg tablet,extended release 24 hr 1,000 mg PO DAILY DM 07/08/20 [History Last Taken 07/16/20] mycophenolate mofetil 250 mg capsule 500 mg PO Q12H TRANSPLANT 07/08/20 [History Last Taken 07/17/20] prednisone 5 mg tablet 5 mg PO DAILY steroid for lupus 07/08/20 [History Last Taken 07/17/20] levocetirizine 5 mg tablet 5 mg PO DAILY ALLERGIES 07/17/20 [History Last Taken 07/17/20] blood sugar diagnostic #10 ea 11/04/20 [History Last Taken Unknown] diclofenac sodium 1 % topical gel 1 ea topical PRN PRN Pain 11/04/20 [History Last Taken Unknown] lancets 33 gauge #100 ea 11/04/20 [History Last Taken Unknown] lancets 33 gauge (OneTouch Delica Lancets) #360 ea 03/31/21 [Rx Last Taken Unknown] pregabalin 150 mg capsule 150 mg PO BID 03/31/21 [History Last Taken Unknown] OneTouch Verio test strips (blood sugar diagnostic) #360 ea 04/17/21 [Rx Last Taken Unknown] carvedilol 25 mg tablet 37.5 mg PO BID 06/10/21 [History Last Taken Unknown] hydroxychloroquine 200 mg tablet 200 mg PO DAILY antimalarial 07/08/21 [History Last Taken Unknown] hydralazine 25 mg tablet 25 mg PO 4X/DAY 08/26/21 [History Last Taken Unknown] oxycodone 5 mg tablet 5 mg PO DAILY PRN PRN Pain 08/26/21 [History Last Taken Unknown] acetaminophen 500 mg tablet 500 mg PO Q6H PRN pain/fever 11/25/21 [History Last Taken Unknown] mirtazapine 15 mg tablet 7.5 - 15 mg PO QHS 11/25/21 [History Last Taken Unknown] solriamfetol 75 mg tablet (Sunosi) 75 mg PO DAILY 12/31/21 [History Last Taken Unknown] cyclosporine 25 mg capsule 75 mg PO QHS 01/04/22 [History Last Taken Unknown] glimepiride 4 mg tablet 4 mg PO BID 01/04/22 [History Last Taken Unknown] insulin degludec 100 unit/mL (3 mL) subcutaneous pen (Tresiba FlexTouch U-100 insulin) 18 unit subcut QHS 01/04/22 [History Last Taken Unknown] ketoconazole 2 % shampoo 1 applic topical DAILY 01/04/22 [History Last Taken Unknown] ondansetron 4 mg disintegrating tablet 4 mg PO Q8H PRN PRN Nausea #10 tabs 01/04/22 [Rx Last Taken Unknown] cevimeline 30 mg capsule (Evoxac) 1 cap PO TID 01/26/22 [History Last Taken Unknown] desvenlafaxine succinate 100 mg tablet,extended release 24 hr 100 mg PO 02/19/22 [History Last Taken Unknown] efinaconazole 10 % topical solution with applicator 1 applic topical 02/19/22 [History Last Taken Unknown] Dexcom G6 Family Member Caretaker (blood-glucose meter,continuous) #1 ea 03/04/22 [Rx Last Taken Unknown] Dexcom G6 Sensor (blood-glucose sensor) #3 ea 03/04/22 [Rx Last Taken Unknown] Dexcom G6 Transmitter (blood-glucose transmitter) #1 ea 03/04/22 [Rx Last Taken Unknown] BD Ultra-Fine Mini Pen Needle 31 gauge x 3/16 (pen needle, diabetic) #100 ea 03/12/22 [Rx Last Taken Unknown] amoxicillin 500 mg capsule 2,000 mg PO ONCE 03/24/22 [History Last Taken Unknown] dextroamphetamine sulfate 15 mg capsule,extended release 15 mg PO DAILY 03/24/22 [History Last Taken Unknown] nystatin 100,000 unit/mL oral suspension 1 ml PO DAILY 03/24/22 [History Last Taken Unknown] calcium carbonate 600 mg calcium (1,500 mg) tablet (Calcium) 600 mg PO DAILY 05/05/22 [History Last Taken Unknown] cevimeline 30 mg capsule (Evoxac) 1 cap PO TID 05/05/22 [History Last Taken Unknown] cholecalciferol (vitamin D3) 50 mcg (2,000 unit) capsule 50 mcg PO DAILY 05/05/22 [History Last Taken Unknown] potassium chloride 20 mEq tablet,extended release 20 meq PO DAILY #30 tabs 05/19/22 [Rx Last Taken Unknown] Humalog KwikPen Insulin 100 unit/mL subcutaneous (insulin lispro) 40 unit (0.4 mL) subcut TID #108 mL 05/20/22 [Rx Last Taken Unknown] insulin pump cartridge, continuous, BT with controller subcutaneous (Omnipod Dash Intro Kit (Gen 4) subcutaneous cartridge with controller) #1 ea 05/27/22 [Rx Last Taken Unknown] insulin pump cartridge, continuous, BT with controller subcutaneous (Omnipod Dash Intro Kit (Gen 4) subcutaneous cartridge with controller) #30 ea 05/27/22 [Rx Last Taken Unknown] sitagliptin 50 mg tablet (Januvia) 50 mg PO DAILY #30 tabs 05/29/22 [Rx Last Taken Unknown] torsemide 40 mg tablet 40 mg PO DAILY #30 tabs 06/22/22 [Rx Last Taken Unknown] Allergy/AdvReac Type Severity Reaction Status Date / Time LONG Inhibitors Allergy Angioedema Verified 06/22/22 11:12 adhesive Allergy Rash Verified 06/22/22 11:12 lisinopril Allergy Angioedema Verified 06/22/22 11:12 Sulfa (Sulfonamide Allergy Rash Verified 06/22/22 11:12 Antibiotics) sulfamethoxazole Allergy Rash Verified 06/22/22 11:12 [From Bactrim] trimethoprim [From Bactrim] Allergy Rash Verified 06/22/22 11:12 tuberculin, purified protein Allergy Unknown Verified 06/22/22 11:12 deriva Angioderm AdvReac Unknown Unknown Uncoded 06/22/22 11:12 Family History (Updated 03/24/22 @ 15:08 by Darlene Nicole) Mother Hypertension Kidney disease ALS (amyotrophic lateral sclerosis) Father Heart disease Hypertension Kidney disease Diabetes Brother Melanoma Surgical History Hip replacement planned History of esophagogastroduodenoscopy (EGD) History of left heart catheterization (03/08/20) Kidney transplant recipient port removed revision of right hip arthroplasty (05/10/19) S/P colonoscopy S/P lymph node biopsy S/P nasal polypectomy Status post carpal tunnel release Status post total hip replacement, bilateral Social History Smoking Status: Former smoker alcohol intake: never substance use type: does not use caffeine: No what type of physical activity do you participate in: other details: PT seatbelt use: always do you feel safe at home: Yes additional social history: Single ROS ROS ED Constitutional Constitutional ED: Denies chills or fever(s) Eyes Eyes: Denies blurry vision or change in vision ENT ENT ED: Denies rhinorrhea or sore throat Cardiovascular Cardiovascular: Denies chest pain or palpitations Respiratory/Chest Respiratory/Chest: Reports dyspnea; Denies cough Gastrointestinal Gastrointestinal: Reports abdominal pain; Denies nausea or vomiting Genitourinary Genitourinary ED: Denies dysuria or hematuria Musculoskeletal Musculoskeletal: Denies back pain or neck pain Integumentary Denies abscess or rash Neurologic Neurologic: Denies headache(s) or weakness Allergic/Immunologic Allergic/Immunologic ED: Denies mouth swelling or urticaria EXAM Physical Exam Const Vital Signs: 06/22/22 11:12 06/22/22 15:47 Temperature 96.4 F L Temperature Source Temporal Pulse Rate 84 69 Respiratory Rate 18 Blood Pressure 135/82 H 120/72 Blood Pressure Mean 99 88 Pulse Ox 99 97 Oxygen Delivery Method Room Air Room Air Positive well nourished, well developed and obese General Appearance ED: well developed and NAD Nutritional Appearance: obese HEENT Reports moist mucous membranes Neck supple and no JVD Resp normal respiratory effort and clear to auscultation bilaterally Cardio regular rate, regular rhythm and no murmurs GI no masses Auscultation: normoactive bowel sounds Palpation: soft and tender epigastric, LLQ, RLQ, LUQ, RUQ, periumbilical and suprapubic; Negative for guarding or rebound tenderness present Extremity normal to inspection General Extremety ED: Yes edema; Negative for tenderness General Extremity: edema bilateral lower extremity Details: mild Neuro oriented x3, CN's II-XII intact bilaterally and no sensory deficits noted Sensorium / Orientation: alert Motor Exam: strength 5/5 throughout Psych mental status grossly normal Skin no rashes or lesions noted MDM MDM MDM Narrative Medical decision making narrative: CBC shows mild anemia with a hemoglobin of 11.6. Platelets were normal. PT with INR and PTT were normal. Lactate was slightly elevated 2.9. This is likely due to her metformin. Comprehensive metabolic profile shows slightly elevated BUN of 36 and creatinine of 1.72. These are slightly increased from previous results. BNP was 1203. Lipase was normal. Urinalysis shows a leukocyte esterases of 500 with 25-50 white blood cells and 4+ bacteria. There are positive nitrites. Urine culture was ordered. Patient was given a dose of Rocephin. CT scan of the abdomen pelvis was obtained. There is subcutaneous edema involving the abdominal pelvic areas as well as both breasts. There is no acute abnormality noted. There is atrophy of both [place] kidneys. The transplanted kidney is noted in the right hemipelvis. This was interpreted by the radiologist and reviewed by myself. PA and lateral chest x-ray was obtained. There are 2 views. On my interpretation, lung dobson are clear. There is normal cardiac silhouette. Bony thorax is normal. There is no acute process noted. There is no evidence of congestive heart failure on the x-ray. Radiologist also interpreted the x-ray and agrees. Patient was given a dose of Lasix here. I discussed her findings. Patient recommended that we contact the [facility] transplant line and discussed the case with them to see if she needs to stay in the hospital for IV Lasix or if she can go home with adjusted dose of her p.o. Lasix. I am currently awaiting a callback from them. Case was discussed with Dr. Reilly, senior qc technician from [facility]. She recommended changing the patient from Lasix to torsemide 40 mg daily. She will attempt to reschedule her next appointment to something sooner than next month. She will contact the patient for her appointment. Patient understands and is agreeable with the plan. All questions were answered. Lab Data Attestation: I reviewed the patient's lab results. Labs: Laboratory Results - last 24 hr 06/22/22 06/22/22 06/22/22 12:20 12:21 12:21 WBC 7.7 RBC 3.99 L Hgb 11.6 L Hct 39.1 MCV 98.0 MCH 29.1 MCHC 29.7 L RDW Std Deviation 72.4 H RDW Coeff of Jah 21.0 H Plt Count 159 MPV 10.8 Immature Gran % (Auto) 2.600 H Neut % (Auto) 73.3 H Lymph % (Auto) 12.0 L Wheeler % (Auto) 9.9 Eos % (Auto) 1.8 Baso % (Auto) 0.4 Absolute Neuts (auto) 5.6 Absolute Lymphs (auto) 0.92 Nucleated RBC % 1.0 Anisocytosis 1+ PT 13.9 INR 1.1 APTT 27.3 Sodium Potassium Chloride Carbon Dioxide Anion Gap BUN Creatinine Estim Creat Clear Calc Est GFR (MDRD) Af Amer Est GFR (MDRD) Non-Af BUN/Creatinine Ratio Glucose Lactic Acid 2.9 H* Calcium Total Bilirubin AST ALT Alkaline Phosphatase B-Natriuretic Peptide Total Protein Albumin Globulin Albumin/Globulin Ratio Lipase Urine Color Urine Clarity Urine pH Ur Specific [place] Urine Protein Urine Glucose (UA) Urine Ketones Urine Occult Blood Urine Nitrite Urine Bilirubin Urine Urobilinogen Ur Leukocyte Esterase Urine RBC Urine WBC Ur Squamous Epith Cells Urine Bacteria Urine Mucus 06/22/22 06/22/22 06/22/22 12:21 12:21 12:21 WBC RBC Hgb Hct MCV MCH MCHC RDW Std Deviation RDW Coeff of Jah Plt Count MPV Immature Gran % (Auto) Neut % (Auto) Lymph % (Auto) Wheeler % (Auto) Eos % (Auto) Baso % (Auto) Absolute Neuts (auto) Absolute Lymphs (auto) Nucleated RBC % Anisocytosis PT INR APTT Sodium 141 Potassium 3.4 L Chloride 103 Carbon Dioxide 30.0 Anion Gap 8 BUN 36 H Creatinine 1.72 H Estim Creat Clear Calc 34.17 Est GFR (MDRD) Af Amer 40 L Est GFR (MDRD) Non-Af 33 L BUN/Creatinine Ratio 20.9 H Glucose 168 H Lactic Acid Calcium 9.5 Total Bilirubin 1.30 H AST 31 ALT 23 Alkaline Phosphatase 75 B-Natriuretic Peptide 1203.0 H Total Protein 7.3 Albumin 3.0 L Globulin 4.3 H Albumin/Globulin Ratio 0.7 L Lipase 108 Urine Color Straw Urine Clarity Sl. Cloudy Urine pH 6.5 Ur Specific [place] 1.010 Urine Protein 30 H Urine Glucose (UA) Normal Urine Ketones Negative Urine Occult Blood 50 H Urine Nitrite Positive H Urine Bilirubin Negative Urine Urobilinogen Normal Ur Leukocyte Esterase 500 H Urine RBC 0-5 SEEN Urine WBC 25-50 SEEN Ur Squamous Epith Cells 0-5 SEEN Urine Bacteria 4+ Urine Mucus 0 SEEN Radiography Diagnostic Testing: Clinical Impression(s) from Imaging Studies Abdomen/Pelvis CT 06/22/22 12:13 IMPRESSION: Diffuse subcutaneous edematous changes as described involving the abdominal and pelvic areas as well as both breasts. Renal cortical atrophy of both [place] kidneys. A transplanted kidney is seen in the right hemipelvis. Electronically Signed: Jonathan Garcia MD at 13:00 EDT , Chest X-Ray 06/22/22 12:40 IMPRESSION: Hyperinflation. The lungs are clear. Electronically Signed: Jonathan Garcia MD at 12:55 EDT , Discharge Plan Triage Chief Complaint: Abd Pain Other Complaint: Edema ED Provider: Javi Barba Dx/Rx/DC Orders Clinical Impression: Peripheral edema, Diabetes, Essential hypertension Instructions: ED Peripheral Edema, Bilateral Prescriptions: New torsemide 40 mg tablet 40 mg PO DAILY Qty: 30 0RF Discontinued furosemide [Lasix] 40 mg tablet 40 mg PO DAILY Qty: 30 11RF No Action ipratropium bromide 42 mcg (0.06 %) spray,non-aerosol 1 spray INTRANASAL BID metformin 500 mg tablet extended release 24 hr 1,000 mg PO DAILY mycophenolate mofetil 250 mg capsule 500 mg PO Q12H (DME) blood sugar diagnostic Strip See Rx Instructions .ROUTE .MEDSUPPLY Qty: 10 Label Comments: use 1 TEST STRIP to TEST BLOOD SUGAR daily Rx Instructions: As directed diclofenac sodium 1 % gel 1 ea TOPICAL PRN PRN (Reason: Pain) (DME) lancets 33 gauge misc See Rx Instructions .ROUTE .MEDSUPPLY Qty: 100 Label Comments: use 1 LANCET to TEST BLOOD SUGAR daily Rx Instructions: As directed pregabalin 150 mg capsule 150 mg PO BID (DME) lancets [OneTouch Delica Lancets] 33 gauge misc See Rx Instructions .ROUTE .MEDSUPPLY Qty: 360 3RF Rx Instructions: 4x/day carvedilol 25 mg tablet 37.5 mg PO BID hydralazine 25 mg tablet 25 mg PO 4X/DAY oxycodone 5 mg tablet 5 mg PO DAILY PRN PRN (Reason: Pain) acetaminophen 500 mg tablet 500 mg PO Q6H PRN (Reason: pain/fever) mirtazapine 15 mg tablet 7.5 - 15 mg PO QHS amoxicillin 500 mg capsule 2,000 mg PO ONCE Rx Instructions: 4 capsules 30 minutes prior to dental procedures nystatin 100,000 unit/mL suspension 1 ml PO DAILY Rx Instructions: swish and swallow dextroamphetamine sulfate 15 mg capsule, extended release 15 mg PO DAILY cevimeline [Evoxac] 30 mg capsule 1 cap PO TID Sunosi 75 mg tablet 75 mg PO DAILY desvenlafaxine succinate 100 mg tablet extended release 24 hr 100 mg PO [place] 10 % solution with applicator 1 applic topical calcium carbonate [Calcium 600] 600 mg calcium (1,500 mg) tablet 600 mg PO DAILY cevimeline [Evoxac] 30 mg capsule 1 cap PO TID cholecalciferol (vitamin D3) 50 mcg (2,000 unit) capsule 50 mcg PO DAILY hydroxychloroquine 200 mg tablet 200 mg PO DAILY Label Comments: lupus prednisone 5 mg tablet 5 mg PO DAILY levocetirizine 5 MG tablet 5 mg PO DAILY ketoconazole 2 % Shampoo 1 applic TOPICAL DAILY cyclosporine 25 mg Capsule 75 mg PO QHS glimepiride 4 mg tablet 4 mg PO BID Tresiba FlexTouch U-100 100 unit/mL (3 mL) insulin pen 18 unit subcut QHS ondansetron [ondansetron] 4 MG tablet 4 mg PO Q8H PRN PRN (Reason: Nausea) Qty: 10 0RF (DME) OneTouch Verio test strips Strip See Rx Instructions .ROUTE .MEDSUPPLY Qty: 360 3RF Rx Instructions: As directed up to 4x daily to monitor glucose levels (DME) Dexcom G6 Sensor Device See Rx Instructions .Route Qty: 3 3RF Rx Instructions: 1 sensor q 10 days (DME) Dexcom G6 Family Member Caretaker Misc See Rx Instructions .Route Qty: 1 0RF Rx Instructions: As directed (DME) Dexcom G6 Transmitter Device See Rx Instructions .Route Qty: 1 1RF Rx Instructions: 1 q 90 days (DME) pen needle, diabetic [BD Ultra-Fine Mini Pen Needle] 31 gauge x 3/16 needle See Rx Instructions .ROUTE .MEDSUPPLY Qty: 100 3RF Rx Instructions: 3x/day potassium chloride 20 mEq tablet extended release 20 meq PO DAILY Qty: 30 3RF insulin lispro [Humalog KwikPen Insulin] 100 unit/mL insulin pen 40 unit subcut TID Qty: 108 1RF (DME) Omnipod Dash Intro Kit (Gen 4) Cartridge See Rx Instructions .Route Qty: 1 0RF Rx Instructions: As directed (DME) Omnipod Dash Intro Kit (Gen 4) Cartridge See Rx Instructions .Route Qty: 30 1RF Rx Instructions: 1 pod every 72 hours Januvia 50 mg tablet 50 mg PO DAILY Qty: 30 5RF Primary Care Provider: Mitchell Bowen Chi Referrals: Mitchell Bowen Chi, MD [Primary Care Provider] - 3-5 Days Activity Restrictions/Additional Instructions: Your senior qc technician recommended stopping the Lasix and taking the torsemide 40 mg daily. They will attempt to reschedule your next appointment to something sooner than next month. They will contact you with a new appointment. Disposition Disposition: Home, Self Care
--- NOTE | 2022-06-22 12:13 | CT_ITS ---
STUDY: CT ABDOMEN AND PELVIS WITHOUT CONTRAST REASON FOR EXAM: Female, 51 years old. Abdominal pain. Chronic renal disease. History of prior renal transplantation. RADIATION DOSAGE (If Supplied By Facility): CTDIvol = ( 18.80 ) mGy, DLP = ( 962.77 ) mGycm TECHNIQUE: Transaxial images were obtained from the dome of the diaphragm to the symphysis pubis without oral contrast, and without intravenous contrast. Sagittal and coronal images were reconstructed. Individualized dose optimization techniques were used for this CT. COMPARISON: None. FINDINGS: Diffuse increased soft tissue density in both breasts as well as in the subcutaneous tissues involving the abdominal and pelvic [place]. This is suggestive of a diffuse subcutaneous edema. Mild increased linear markings in the lingular segment of the left upper lobe as well as the right middle lobe suggestive of a scarring and/or atelectasis. Coronary artery calcification. Hepatomegaly. Fatty infiltration of the liver. Normal gallbladder and extrahepatic biliary system. Normal spleen. There is diffuse atrophy of the pancreas. Normal bilateral adrenal glands. Bilateral [place] renal cortical atrophy. A transplanted kidney is seen in the right hemipelvis. Normal visualized stomach. Normal small intestine. Normal colon. The appendix is visualized and appears normal. There is scattered atherosclerotic calcification of the abdominal aorta, without a demonstrated aneurysm. Normal inferior vena cava. There is borderline retroperitoneal lymphadenopathy with enlarged nodes no greater than 10mm in the short axis diameter. Normal urinary bladder. Normal abdominal wall. Loss of the normal lumbar lordosis. Status post bilateral hip replacements. CT/Abdomen/Pelvis without Cont IMPRESSION: Diffuse subcutaneous edematous changes as described involving the abdominal and pelvic areas as well as both breasts. Renal cortical atrophy of both [place] kidneys. A transplanted kidney is seen in the right hemipelvis. Electronically Signed: Jonathan Garcia MD at 13:00 EDT ,
[2022-06-22 12:33] LABS: Mucous, Urine 0 SEEN /hpf (<or=2+)
[2022-06-22 12:34] LABS: Absolute Lymphocyte Count 0.92 X10^3/uL (0.83-4.51); Absolute Neutrophil Count 5.6 X10^3/uL (2.0-7.7); Basophil# 0.03 X10^3/uL; Basophil% 0.4 % (0-1); Eosinophil# 0.14 X10^3/uL; Eosinophils% 1.8 % (0-5); Hematocrit 39.1 % (37-47); Hemoglobin 11.6 g/dL (12.0-15.0); Lymphocyte # 0.92 X10^3/ul (0.83-4.51); Mean Corp Hgb Conc 29.7 g/dL (32-36); Mean Corpuscular Hgb 29.1 pg (27.0-32.0); Mean Platelet Vol. 10.8 fl (6.2-12.0); Monocyte# 0.76 X10^3/uL; Monocyte% 9.9 % (0-10); Neutrophil # 5.64 X10^3/uL (2.7-7.7); Neutrophil % 73.3 % (47-70); POSITIVE MORPHOLOGY YES; Platelet Count 159 K/mm3 (150-450); RBC Distribution Width SD 72.4 fl (35.1-43.9); Red Blood Count 3.99 M/mm3 (4.2-5.4); White Blood Count 7.7 K/mm3 (4.4-11.0)
[2022-06-22 12:36] LABS: Color, Urine Straw (Yellow); Glucose, Dipstick Normal (Normal); Ketone-Dipstick Negative (Negative); Leukocyte Esterase-Dipstick 500 /ul (Negative); Nitrite-Dipstick Positive (Negative); Occult Blood-Urine 50 /ul (Negative); Protein-Dipstick 30 mg/dl (Negative); Urine Bilirubin Dipstick Negative (Negative); Urine Clarity Sl. Cloudy (Clear); Urine Urobilinogen Normal (Normal); Urine pH 6.5 (5.0 - 8.0)
[2022-06-22 12:38] LABS: Differential Indicated SCAN CRITERIA MET
--- NOTE | 2022-06-22 12:40 | RAD_ITS ---
STUDY: X-RAY CHEST REASON FOR EXAM: Female, 51 years old. Dyspnea TECHNIQUE: PA and lateral views of the chest. COMPARISON: Comparison is made with prior examination 05/12/2021. FINDINGS: There is hyperinflation of the lungs consistent with chronic obstructive lung disease (COPD). There is no demonstrated pleural abnormality. Normal size heart. Normal mediastinum and mal[place]. Normal visualized pulmonary arteries. There is atherosclerotic calcification of the aortic arch with tortuosity. Normal visualized thoracic spine. Normal visualized ribs, clavicles, and shoulders. There is no demonstrated abnormality of the visualized soft tissue structures of the upper abdomen. RAD/Chest PA and Lateral IMPRESSION: Hyperinflation. The lungs are clear. Electronically Signed: Jonathan Garcia MD at 12:55 EDT ,
[2022-06-22 12:43] LABS: International Normalized Ratio 1.1; Prothrombin Time (Protime)PT. 13.9 SECONDS (11.7-14.9)
[2022-06-22 12:44] LABS: Partial Thromboplast Time 27.3 Seconds (24.1-36.2)
[2022-06-22 12:45] LABS: White Blood Cells 25-50 SEEN /hpf (0-5)
[2022-06-22 12:46] LABS: Bacteria 4+ /hpf (None Seen); Red Blood Cells-Urine 0-5 SEEN /hpf (0-5); Squamous Epithelial Cells - UA 0-5 SEEN /hpf (5-10)
[2022-06-22 12:50] LABS: ALB/GLOB Ratio 0.7 RATIO (0.9-2.4); AST(SGOT) 31 U/L (15-37); Alanine Aminotransfer ALT/SGPT 23 U/L (13-56); Alkaline Phosphatase 75 U/L (45-117); Anion Gap 8 (5-15); BUN 36 mg/dL (7-18); BUN/Creat Ratio 20.9 RATIO (10-20); Calcium,Total 9.5 mg/dL (8.5-10.1); Chloride 103 mmol/L (98-107); Creatinine, Serum 1.72 mg/dL (0.55-1.02); EST Glomerular Filtration Rate 33 mL/min (>60); Est Glom Filt Rate - Afr Amer 40 mL/min (>60); Estimated Creatinine Clearance 34.17 ml/min; Globulin 4.3 g/dL (2.2-4.2); Glucose 168 mg/dL (74-106); Lipase 108 U/L (73-393); Potassium 3.4 mmol/L (3.5-5.1); Protein, Total 7.3 g/dL (6.4-8.2); Sodium Level 141 mmol/L (136-145)
[2022-06-22 12:58] LABS: Anisocytosis 1+
[2022-06-22 13:17] LABS: Lactic Acid 2.9 mmol/L (0.4-1.9)
[2022-06-22] MEDS: Furosemide 40 MG/4 ML Vial IV (15:21)
[2022-06-22 15:47] VITALS: BP 120/72; PULSE 69; O2SAT 97
[2022-06-22] MEDS: Ceftriaxone 1 GM/50 ML BAG IV (15:47)
[2022-06-22 16:30] LABS: Reflex Lactate? Y
--- NOTE | 2022-06-22 16:40 | NURSING ---
[id number] CALLED [facility] FOR TOOL LIAISON
--- NOTE | 2022-06-22 16:41 | NURSING ---
CALLED AGAIN TO [facility] FOR FRONT END ALIGNMENT SPECIALIST. TALKED TO SARAH. GAVE HER THE INFO
[2022-06-22 18:29] VITALS: BP 115/78; PULSE 79; RESP 18; O2SAT 98
[2022-06-22 18:40] LABS: Lactic Acid 3.3 mmol/L (0.4-1.9)
== END 2022-06-22 18:30 | disposition home or self-care (01) ==
PROVIDERS: Emergency Provider Emergency Medicine; PCP Family Medicine Geriatric Medicine; Visit Provider Emergency Medicine
DX: R60.9 Edema, unspecified (principal); E11.9 Type 2 diabetes mellitus without complications; Z87.891 Personal history of nicotine dependence; I10 Essential (primary) hypertension; N26.1 Atrophy of kidney (terminal); M79.89 Other specified soft tissue disorders; Z94.0 Kidney transplant status; Z79.899 Other long term (current) drug therapy; E66.9 Obesity, unspecified; R06.09 Other forms of dyspnea
CPT/HCPCS: 71046; 74176; 80053; 81001; 83605; 83690; 83880; 85025; 85610; 85730; 87040; 87086; 87088; 87186; 99283; A4216; J1940

== ENCOUNTER → 2022-07-02 | Outpatient (CLI) | payer MEDICARE, MEDICAID, SELFPAY | END | disposition home or self-care (01) | LOC: POLAB3 15:31 | PROVIDERS: PCP Family Medicine Geriatric Medicine; Visit Provider Family Medicine Geriatric Medicine | DX: N39.0 Urinary tract infection, site not specified (principal) | CPT/HCPCS: 87086; 87088 ==

== ENCOUNTER → 2022-07-07 | Outpatient (CLI) | payer MEDICARE, MEDICAID, SELFPAY ==
[2022-07-07 18:25] LABS: Vitamin D,25 Hydroxy 52.2 ng/mL
[2022-07-07 18:34] LABS: ALB/GLOB Ratio 0.7 RATIO (0.9-2.4); AST(SGOT) 28 U/L (15-37); Alanine Aminotransfer ALT/SGPT 14 U/L (13-56); Alkaline Phosphatase 78 U/L (45-117); Anion Gap 10 (5-15); BUN 26 mg/dL (7-18); BUN/Creat Ratio 14.3 RATIO (10-20); Calcium,Total 9.5 mg/dL (8.5-10.1); Chloride 104 mmol/L (98-107); Creatinine, Serum 1.82 mg/dL (0.55-1.02); EST Glomerular Filtration Rate 31 mL/min (>60); Est Glom Filt Rate - Afr Amer 38 mL/min (>60); Globulin 4.4 g/dL (2.2-4.2); Glucose 126 mg/dL (74-106); Protein, Total 7.4 g/dL (6.4-8.2); Sodium Level 138 mmol/L (136-145)
== END | disposition home or self-care (01) ==
LOC: POLAB3 13:00
PROVIDERS: PCP Family Medicine Geriatric Medicine; Visit Provider Family Medicine Geriatric Medicine
DX: E11.9 Type 2 diabetes mellitus without complications (principal); E55.9 Vitamin D deficiency, unspecified; I10 Essential (primary) hypertension
CPT/HCPCS: 36415; 80053; 82306; 84443

== ENCOUNTER → 2022-07-21 | Outpatient (CLI) | payer MEDICARE, MEDICAID, SELFPAY ==
[2022-07-21 17:18] LABS: Absolute Lymphocyte Count 1.49 X10^3/uL (0.83-4.51); Absolute Neutrophil Count 5.1 X10^3/uL (2.0-7.7); Basophil# 0.04 X10^3/uL; Basophil% 0.5 % (0-1); Eosinophil# 0.06 X10^3/uL; Eosinophils% 0.8 % (0-5); Hematocrit 39.7 % (37-47); Hemoglobin 12.8 g/dL (12.0-15.0); Lymphocyte # 1.49 X10^3/ul (0.83-4.51); Lymphocyte % 19.9 % (19-41); Mean Corp Hgb Conc 32.2 g/dL (32-36); Mean Corpuscular Volume 93.2 fL (81-99); Mean Platelet Vol. 10.5 fl (6.2-12.0); Monocyte# 0.75 X10^3/uL; NRBC Flagged by Analyzer 0 % (0-5); Neutrophil % 68.1 % (47-70); Platelet Count 316 K/mm3 (150-450); RBC Distribution Width CV 18.2 % (11.6-14.6); RBC Distribution Width SD 61.2 fl (35.1-43.9); Red Blood Count 4.26 M/mm3 (4.2-5.4); White Blood Count 7.5 K/mm3 (4.4-11.0)
[2022-07-21 17:55] LABS: ALB/GLOB Ratio 0.6 RATIO (0.9-2.4); AST(SGOT) 20 U/L (15-37); Alanine Aminotransfer ALT/SGPT 16 U/L (13-56); Albumin, Serum 3.1 g/dL (3.2-5.0); Alkaline Phosphatase 87 U/L (45-117); Anion Gap 16 (5-15); BUN 56 mg/dL (7-18); Calcium,Total 10.1 mg/dL (8.5-10.1); Chloride 87 mmol/L (98-107); EST Glomerular Filtration Rate 13 mL/min (>60); Est Glom Filt Rate - Afr Amer 15 mL/min (>60); Globulin 5.4 g/dL (2.2-4.2); Glucose 119 mg/dL (74-106); Potassium 2.9 mmol/L (3.5-5.1); Protein, Total 8.5 g/dL (6.4-8.2); Sodium Level 131 mmol/L (136-145)
== END | disposition home or self-care (01) ==
LOC: POLAB3 14:54
PROVIDERS: PCP Family Medicine Geriatric Medicine; Visit Provider Family Medicine Geriatric Medicine
DX: R53.83 Other fatigue (principal)
CPT/HCPCS: 36415; 80053; 85025

== ENCOUNTER 2022-07-22 15:29 | Inpatient (IN) | payer MEDICARE, MEDICAID, SELFPAY ==
[2022-07-22 15:30] VITALS: BP 125/76; PULSE 75; RESP 16; TEMP 36.1; O2SAT 97; BMI 29.7
--- NOTE | 2022-07-22 16:34 | EDS_ITS ---
HPI History of Present Illness Chief Complaint: Abn Labs Informant: patient Narrative Narrative: Patient presents because of abnormal labs. 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 She was [place] and discharged May be a week ago or less because of congestive heart failure. Since then, she has been urinating less, but without any pain. She states upon discharge 5 or 6 days ago, they put her on an unknown antibiotic that she does not have with her and cannot remember right now, it may have been cephalexin and. She is thinks that she still may be on it because when she urinated she had some sediment in her urine and it was cloudy and they told her it may be infected. She cannot tell me anything else about it but denies any dysuria or hematuria. She denies having any pain in her right lower quadrant transplant site. She states she had rejection this past month and was admitted to , she states that they have changed medications around since then, but when she was in rejection her creatinine was in the high ones, it did not go over 2. Yesterday her creatinine is 4.0 and her potassium is low at 2.9. 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 Narcolepsy Non-rheumatic tricuspid valve insufficiency Nonrheumatic mitral (valve) insufficiency Osteopenia Prolonged QT interval Secondary pulmonary arterial hypertension SLE (systemic lupus erythematosus) Vitamin D deficiency Home Medications ipratropium bromide 42 mcg (0.06 %) nasal spray 1 spray intranasal BID 07/08/20 [History Last Taken 07/16/20] prednisone 5 mg tablet 5 mg PO DAILY steroid for lupus 07/08/20 [History Last Taken 07/17/20] levocetirizine 5 mg tablet 5 mg PO DAILY ALLERGIES 07/17/20 [History Last Taken 07/17/20] blood sugar diagnostic #10 ea 11/04/20 [History Last Taken Unknown] diclofenac sodium 1 % topical gel 1 ea topical PRN PRN Pain 11/04/20 [History Last Taken Unknown] lancets 33 gauge #100 ea 11/04/20 [History Last Taken Unknown] lancets 33 gauge (Oneuch Delica Lancets) #360 ea 03/31/21 [Rx Last Taken Unknown] pregabalin 150 mg capsule 150 mg PO BID 03/31/21 [History Last Taken Unknown] [employer] [facility] Verio test strips (blood sugar diagnostic) #360 ea 04/17/21 [Rx Last Taken Unknown] carvedilol 25 mg tablet 37.5 mg PO BID 06/10/21 [History Last Taken Unknown] hydroxychloroquine 200 mg tablet 200 mg PO DAILY antimalarial 07/08/21 [History Last Taken Unknown] hydralazine 25 mg tablet 25 mg PO 4X/DAY 08/26/21 [History Last Taken Unknown] oxycodone 5 mg tablet 5 mg PO DAILY PRN PRN Pain 08/26/21 [History Last Taken Unknown] acetaminophen 500 mg tablet 500 mg PO Q6H PRN pain/fever 11/25/21 [History Last Taken Unknown] mirtazapine 15 mg tablet 7.5 - 15 mg PO QHS 11/25/21 [History Last Taken Unknown] solriamfetol 75 mg tablet (Sunosi) 75 mg PO DAILY 12/31/21 [History Last Taken Unknown] cyclosporine 25 mg capsule 75 mg PO QHS 01/04/22 [History Last Taken Unknown] glimepiride 4 mg tablet 4 mg PO BID 01/04/22 [History Last Taken Unknown] insulin degludec 100 unit/mL (3 mL) subcutaneous pen (Tresiba FlexTouch U-100 insulin) 18 unit subcut QHS 01/04/22 [History Last Taken Unknown] ketoconazole 2 % shampoo 1 applic topical DAILY 01/04/22 [History Last Taken Unknown] cevimeline 30 mg capsule (Evoxac) 1 cap PO TID 01/26/22 [History Last Taken Unknown] desvenlafaxine succinate 100 mg tablet,extended release 24 hr 100 mg PO 02/19/22 [History Last Taken Unknown] efinaconazole 10 % topical solution with applicator 1 applic topical 02/19/22 [History Last Taken Unknown] Dexcom G6 Freight Coordinator (blood-glucose meter,continuous) #1 ea 03/04/22 [Rx Last Taken Unknown] cevimeline 30 mg capsule (Evoxac) 1 cap PO TID 05/05/22 [History Last Taken Unknown] cholecalciferol (vitamin D3) 50 mcg (2,000 unit) capsule 50 mcg PO DAILY 05/05/22 [History Last Taken Unknown] Humalog KwikPen Insulin 100 unit/mL subcutaneous (insulin lispro) 40 unit (0.4 mL) subcut TID #108 mL 05/20/22 [Rx Last Taken Unknown] insulin pump cartridge, continuous, BT with controller subcutaneous (Omnipod Dash Intro Kit (Gen 4) subcutaneous cartridge with controller) #1 ea 05/27/22 [Rx Last Taken Unknown] insulin pump cartridge, continuous, BT with controller subcutaneous (Omnipod Dash Intro Kit (Gen 4) subcutaneous cartridge with controller) #30 ea 05/27/22 [Rx Last Taken Unknown] sitagliptin phosphate 50 mg tablet (Januvia) 50 mg PO DAILY #30 tabs 05/29/22 [Rx Last Taken Unknown] BD Ultra-Fine Mini Pen Needle 31 gauge x 3/16 (pen needle, diabetic) #100 ea 06/30/22 [Rx Last Taken Unknown] Dexcom G6 Sensor (blood-glucose sensor) #3 ea 07/03/22 [Rx Last Taken Unknown] Dexcom G6 Transmitter (blood-glucose transmitter) #1 ea 07/03/22 [Rx Last Taken Unknown] bumetanide 2 mg tablet 2 mg PO BID 07/22/22 [History Last Taken Unknown] Allergy/AdvReac Type Severity Reaction Status Date / Time LONG Inhibitors Allergy Angioedema Verified 07/22/22 15:34 adhesive Allergy Rash Verified 07/22/22 15:34 lisinopril Allergy Angioedema Verified 07/22/22 15:34 Sulfa (Sulfonamide Allergy Rash Verified 07/22/22 15:34 Antibiotics) sulfamethoxazole Allergy Rash Verified 07/22/22 15:34 [From Bactrim] trimethoprim [From Bactrim] Allergy Rash Verified 07/22/22 15:34 tuberculin, purified protein Allergy Unknown Verified 07/22/22 15:34 deriva Angioderm AdvReac Unknown Unknown Uncoded 07/22/22 13:15 Family History Mother Hypertension Kidney disease ALS (amyotrophic lateral sclerosis) Father Heart disease Hypertension Kidney disease Diabetes Brother Melanoma Surgical History Hip replacement planned History of esophagogastroduodenoscopy (EGD) History of left heart catheterization (03/08/20) Kidney transplant recipient port removed revision of right hip arthroplasty (05/10/19) S/P colonoscopy S/P lymph node biopsy S/P nasal polypectomy Status post carpal tunnel release Status post total hip replacement, bilateral Social History Smoking Status: Current every day smoker tobacco type: cigarettes alcohol intake: never substance use type: does not use caffeine: No what type of physical activity do you participate in: other details: PT seatbelt use: always do you feel safe at home: Yes additional social history: Single ROS ROS ED Constitutional Constitutional ED: Denies chills or fever(s) Eyes Eyes: Denies change in vision or diplopia ENT ENT ED: Denies rhinorrhea or sore throat Cardiovascular Cardiovascular: Denies chest pain or palpitations Respiratory/Chest Respiratory/Chest: Denies cough or dyspnea Gastrointestinal Gastrointestinal: Denies abdominal pain, diarrhea, nausea or vomiting Genitourinary Genitourinary ED: Reports as per HPI and other Details: Decreased urine output for past week ; Denies dysuria or hematuria Musculoskeletal Musculoskeletal: Denies back pain or neck pain Integumentary Denies abscess or rash Neurologic Neurologic: Denies headache(s), paresthesias or weakness Psychiatric Psychiatric: Denies anxiety or suicidal thoughts EXAM Physical Exam Const Vital Signs: 07/22/22 15:30 Temperature 97 F L Temperature Source Temporal Pulse Rate 75 Respiratory Rate 16 Blood Pressure 125/76 H Blood Pressure Mean 92 Pulse Ox 97 Oxygen Delivery Method Room Air Positive well nourished and well developed General Appearance ED: well developed and NAD HEENT Reports moist mucous membranes normocephalic and atraumatic Eyes PERRL and EOMs intact bilaterally Neck full ROM and supple Resp normal respiratory effort and clear to auscultation bilaterally Cardio regular rate, regular rhythm and no murmurs GI non-tender GI Narrative: Abdominal distention, nontender right lower quadrant without any erythema Auscultation: normoactive bowel sounds Palpation: soft Back/Spine no CVA tenderness General Back: other FROM Extremity normal to inspection General Extremety ED: Negative for edema, pulses abnormal or tenderness General Extremity: Negative for edema or pulses abnormal Neuro oriented x3, CN's II-XII intact bilaterally and no sensory deficits noted Sensorium / Orientation: awake and alert Motor Exam: strength 5/5 throughout Skin no rashes or lesions noted and no wounds MDM MDM MDM Narrative Medical decision making narrative: Repeat labs are noted. Urine shows signs of infection will provide antibiotics and send a culture. Discussed with , accepted there in transfer by Dr. Andino, I am going to focus on replacing her sodium slowly and I will give her a single dose of oral potassium, which is a little higher than it was yesterday. At this time, we are waiting on a bed and will continue to monitor and treat her until then. Clinically, patient does not appear to be fluid overloaded or in acute congestive heart failure, and her vital signs have remained stable/normal without hypoxemia or fever. Lab Data Attestation: I reviewed the patient's lab results. Labs: Laboratory Results - last 24 hr 07/22/22 07/22/22 07/22/22 17:40 17:50 17:50 WBC 8.3 RBC 4.38 Hgb 13.2 Hct 39.9 MCV 91.1 MCH 30.1 MCHC 33.1 RDW Std Deviation 58.4 H RDW Coeff of Jah 18.0 H Plt Count 317 MPV 10.2 Immature Gran % (Auto) 1.000 H Neut % (Auto) 68.1 Lymph % (Auto) 18.9 L [place] % (Auto) 10.8 H Eos % (Auto) 0.6 Baso % (Auto) 0.6 Absolute Neuts (auto) 5.7 Absolute Lymphs (auto) 1.57 Nucleated RBC % 0 Sodium 125 L Potassium 3.0 L Chloride 83 L Carbon Dioxide 27.0 Anion Gap 15 BUN 67 H Creatinine 4.24 H Estim Creat Clear Calc 13.86 Est GFR (MDRD) Af Amer 14 L Est GFR (MDRD) Non-Af 12 L BUN/Creatinine Ratio 15.8 Glucose 113 H Calcium 9.7 Urine Color Yellow Urine Clarity Sl. Cloudy Urine pH 6.5 Ur Specific Uriah 1.010 Urine Protein 15 H Urine Glucose (UA) Normal Urine Ketones Negative Urine Occult Blood 10 H Urine Nitrite Positive H Urine Bilirubin Negative Urine Urobilinogen Normal Ur Leukocyte Esterase 500 H Discharge Plan Triage Chief Complaint: Abn Labs ED Provider: Alessio Beasley Dx/Rx/DC Orders Clinical Impression: Acute renal failure (ARF), Status post kidney transplant, Acute hyponatremia, Acute hypokalemia, Urinary tract infection Prescriptions: No Action ipratropium bromide 42 mcg (0.06 %) spray,non-aerosol 1 spray INTRANASAL BID (DME) blood sugar diagnostic Strip See Rx Instructions .ROUTE .MEDSUPPLY Qty: 10 Label Comments: use 1 TEST STRIP to TEST BLOOD SUGAR daily Rx Instructions: As directed diclofenac sodium 1 % gel 1 ea TOPICAL PRN PRN (Reason: Pain) (DME) lancets 33 gauge misc See Rx Instructions .ROUTE .MEDSUPPLY Qty: 100 Label Comments: use 1 LANCET to TEST BLOOD SUGAR daily Rx Instructions: As directed pregabalin 150 mg capsule 150 mg PO BID (DME) lancets [OneTouch Delica Lancets] 33 gauge misc See Rx Instructions .ROUTE .MEDSUPPLY Qty: 360 3RF Rx Instructions: 4x/day carvedilol 25 mg tablet 37.5 mg PO BID hydralazine 25 mg tablet 25 mg PO 4X/DAY oxycodone 5 mg tablet 5 mg PO DAILY PRN PRN (Reason: Pain) acetaminophen 500 mg tablet 500 mg PO Q6H PRN (Reason: pain/fever) mirtazapine 15 mg tablet 7.5 - 15 mg PO QHS cevimeline [Evoxac] 30 mg capsule 1 cap PO TID Sunosi 75 mg tablet 75 mg PO DAILY desvenlafaxine succinate 100 mg tablet extended release 24 hr 100 mg PO Jublia 10 % solution with applicator 1 applic topical cevimeline [Evoxac] 30 mg capsule 1 cap PO TID cholecalciferol (vitamin D3) 50 mcg (2,000 unit) capsule 50 mcg PO DAILY bumetanide 2 mg tablet 2 mg PO BID hydroxychloroquine 200 mg tablet 200 mg PO DAILY Label Comments: lupus prednisone 5 mg tablet 5 mg PO DAILY levocetirizine 5 MG tablet 5 mg PO DAILY ketoconazole 2 % Shampoo 1 applic TOPICAL DAILY cyclosporine 25 mg Capsule 75 mg PO QHS glimepiride 4 mg tablet 4 mg PO BID Tresiba FlexTouch U-100 100 unit/mL (3 mL) insulin pen 18 unit subcut QHS (DME) OneTouch Verio test strips Strip See Rx Instructions .ROUTE .MEDSUPPLY Qty: 360 3RF Rx Instructions: As directed up to 4x daily to monitor glucose levels (DME) Dexcom G6 Freight Coordinator Misc See Rx Instructions .Route Qty: 1 0RF Rx Instructions: As directed insulin lispro [Humalog KwikPen Insulin] 100 unit/mL insulin pen 40 unit subcut TID Qty: 108 1RF (DME) Omnipod Dash Intro Kit (Gen 4) Cartridge See Rx Instructions .Route Qty: 1 0RF Rx Instructions: As directed (DME) Omnipod Dash Intro Kit (Gen 4) Cartridge See Rx Instructions .Route Qty: 30 1RF Rx Instructions: 1 pod every 72 hours Januvia 50 mg tablet 50 mg PO DAILY Qty: 30 5RF (DME) pen needle, diabetic [BD Ultra-Fine Mini Pen Needle] 31 gauge x 3/16 needle See Rx Instructions .ROUTE .MEDSUPPLY Qty: 100 3RF Rx Instructions: 3x/day (DME) Dexcom G6 Sensor Device See Rx Instructions .Route Qty: 3 3RF Rx Instructions: 1 sensor q 10 days (DME) Dexcom G6 Transmitter Device See Rx Instructions .Route Qty: 1 1RF Rx Instructions: 1 q 90 days Primary Care Provider: Mitchell Bowen Chi Referrals: Mitchell Bowen Chi, MD [Primary Care Provider] - Disposition Disposition: Acute Care Hospital Discharge Location: [facility]
--- NOTE | 2022-07-22 16:35 | NURSING ---
CALLING [facility] FOR TRANSFER
--- NOTE | 2022-07-22 16:51 | NURSING ---
FAXED FACESHEET TO [facility]
--- NOTE | 2022-07-22 17:32 | NURSING ---
[address] LE
[2022-07-22 18:00] LABS: Mucous, Urine 0 SEEN /hpf (<or=2+); Squamous Epithelial Cells - UA 0 SEEN /hpf (5-10)
[2022-07-22 18:01] LABS: Absolute Lymphocyte Count 1.57 X10^3/uL (0.83-4.51); Absolute Neutrophil Count 5.7 X10^3/uL (2.0-7.7); Basophil# 0.05 X10^3/uL; Basophil% 0.6 % (0-1); Eosinophil# 0.05 X10^3/uL; Eosinophils% 0.6 % (0-5); Hematocrit 39.9 % (37-47); Hemoglobin 13.2 g/dL (12.0-15.0); Lymphocyte # 1.57 X10^3/ul (0.83-4.51); Lymphocyte % 18.9 % (19-41); Mean Corp Hgb Conc 33.1 g/dL (32-36); Mean Corpuscular Hgb 30.1 pg (27.0-32.0); Mean Corpuscular Volume 91.1 fL (81-99); Mean Platelet Vol. 10.2 fl (6.2-12.0); Monocyte% 10.8 % (0-10); NRBC Flagged by Analyzer 0 % (0-5); Neutrophil # 5.67 X10^3/uL (2.7-7.7); Neutrophil % 68.1 % (47-70); Platelet Count 317 K/mm3 (150-450); RBC Distribution Width SD 58.4 fl (35.1-43.9); Red Blood Count 4.38 M/mm3 (4.2-5.4); White Blood Count 8.3 K/mm3 (4.4-11.0)
[2022-07-22 18:19] LABS: Anion Gap 15 (5-15); BUN 67 mg/dL (7-18); BUN/Creat Ratio 15.8 RATIO (10-20); Calcium,Total 9.7 mg/dL (8.5-10.1); Chloride 83 mmol/L (98-107); Creatinine, Serum 4.24 mg/dL (0.55-1.02); EST Glomerular Filtration Rate 12 mL/min (>60); Est Glom Filt Rate - Afr Amer 14 mL/min (>60); Estimated Creatinine Clearance 13.86 ml/min; Glucose 113 mg/dL (74-106); Sodium Level 125 mmol/L (136-145)
[2022-07-22 18:26] LABS: Color, Urine Yellow (Yellow); Glucose, Dipstick Normal (Normal); Ketone-Dipstick Negative (Negative); Leukocyte Esterase-Dipstick 500 /ul (Negative); Nitrite-Dipstick Positive (Negative); Occult Blood-Urine 10 /ul (Negative); Protein-Dipstick 15 mg/dl (Negative); Urine Bilirubin Dipstick Negative (Negative); Urine Clarity Sl. Cloudy (Clear); Urine Urobilinogen Normal (Normal); Urine pH 6.5 (5.0 - 8.0)
[2022-07-22 18:36] LABS: Bacteria 2+ /hpf (None Seen); Red Blood Cells-Urine 0-5 SEEN /hpf (0-5); White Blood Cells 10-25 SEEN /hpf (0-5)
[2022-07-22] MEDS: Potassium Chloride Oral Tablet 20 MEQ 40 MEQ PO (19:04)
[2022-07-22] MEDS: 0.9% Normal Saline 1,000 ML 150 ML IV (19:04)
[2022-07-22] MEDS: Ceftriaxone 1 GM/50 ML BAG IV (19:38)
[2022-07-22 21:12] VITALS: BP 144/89; PULSE 75; RESP 18; O2SAT 98
--- NOTE | 2022-07-22 23:12 | NURSING ---
CALLED [facility] FOR AN UPDATE AND THEY SAID WE ARE STILL WAITING FOR A BED
[2022-07-22 23:42] VITALS: BP 146/82; PULSE 102; RESP 16; O2SAT 98
[2022-07-23] VITALS (11 sets, daily range): BP systolic 116–134; BP diastolic 57–95; PULSE 73–81; RESP 16–18; TEMP 35.9–36.7; O2SAT 94–99; BMI 29.5
[2022-07-23] MEDS: oxyCODONE 5 MG Tablet PO ×2 (03:58→14:15)
--- NOTE | 2022-07-23 08:32 | ED.RN ---
CALLED FOR A UPDATE. THEY REQUESTED UPDATED VS AND STATED THEY ARE STILL WAITING FOR A BED
--- NOTE | 2022-07-23 11:14 | CM.ED ---
Addendum entered by Mayra Way 07/23/22 18:35: SW went back to patient's room. Per patient her family will not need directions to [facility]. SW provided emotional support. No further SW needs at this time. Mayra HAYES Original Note: DION Note SW noted that patient is being transferred to . SW went to room and patient was asleep and no family members were available. Per charge patient is transplant patient and family and patient are familiar with Hospital and directions. Mayra HAYES
[2022-07-23 15:36] LABS: Bedside Glucose 345 mg/dL (74-106)
[2022-07-23] MEDS: Insulin Lispro 100 UNIT/ML INSULN.PEN 16 UNIT SC (15:58)
--- NOTE | 2022-07-23 16:58 | NURSING ---
SPOKE WITH , PT IS STILL ON WAIT LIST, GAVE UPDATED VITALS, NO ETA ON BED AT THIS TIME
[2022-07-23] MEDS: Hydroxychloroquine 200 MG Tablet PO (17:47)
[2022-07-23] MEDS: predniSONE 5 MG Tablet PO (18:14)
[2022-07-23 19:55] LABS: Bedside Glucose 163 mg/dL (74-106)
[2022-07-23] MEDS: Pregabalin 75 MG Capsule 150 MG PO (21:12)
[2022-07-23] MEDS: Mirtazapine 15 MG Tablet 30 MG PO (21:16)
[2022-07-23] MEDS: Insulin Lispro 100 UNIT/ML INSULN.PEN 35 UNIT SC (21:27)
[2022-07-23] MEDS: Insulin Glargine-YFGN 100 UNIT/ML Pen 25 UNIT SC (21:29)
[2022-07-23 21:41] LABS: Bedside Glucose 316 mg/dL (74-106)
--- NOTE | 2022-07-23 22:23 | PCM.HP.STD ---
HPI - General General Date of Admission: 07/23/22 Date of Service: 07/23/22 Chief Complaint: Abnormal labs HPI Narrative The patient is a 51 y/o F w/ PMHx: Narcolepsy, AOCD w/ prior IV Fe/Procrit administration, Anxiety and Depression, Obesity, Diabetes mellitus type II, HTN, HLD, SLE w/ notable history of Lupus nephritis s/p R renal transplant 04/2020 w/ prior to this ESRD on HD status following with Dr. Godfrey Nephrology at (prior to txp Dr. Ambriz) w/ recent ED evaluation 06/22/22 with history of progressively worsening fluid retention x 2 months with associated mild dyspnea, worse with exertion w/ ED w/u including BUN/creat 36/1.72, BNP 1203, evidence UTI tx w/ rocephin, CT abdomen and pelvis obtained with evidence of subcutaneous edema involving the abdominal pelvic area w/ txn from Lasix to torsemide 40 mg daily eventually admitted to discharged ~ 1 week prior to current visit secondary to volume overload with decreased urine output as well as antibiotic therapy for possible UTI with rejection with medication changes have at that time her creatinine did not pass over 2 with return to the ED on 07/22/22 with abnormal labs with creatinine the day prior obtained outpatient 4.0 potassium 2.9 prompting referral to the ED for evaluation. ED repeat evaluation was performed with urinalysis concerning for infection with antibiotics administered and culture pending with request per to continue judicious IV fluids, oral potassium supplementation and plan transfer to their facility for concern for worsening renal function, UTI and transplant rejection. Patient denies any abdominal pain or suprapubic discomfort or dysuria. Current ED presentation included work-up CBC with WC 8.3, hemoglobin 13.2, platelet 317 with increased immature granulocytes, BMP with sodium 125, testing 3.0, chloride 83, BUN/creatinine 67/4.24, glucose 113, calcium 9.7 urinalysis with specific gravity 1.010, protein 15, ketone negative, occult blood 10, positive nitrite, leukocyte Estrace 500, urine WC is 10-25 with 2+ urine bacteria with preliminary urine culture noting gram-negative chiquita lactose title search manager greater than 100,000 colony-forming units, COVID-19 negative testing. In the ED patient judiciously hydrate given hyponatremia. In the ED patient administered Rocephin, potassium 20 mill equivalent p.o. x1 as well as her chronic regimen while awaiting bed at . Discussed current status with ED physician and requested repeat CBC, CMP be obtained upon her admission on 07/23/22 given still awaiting transfer bed. 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) Lupus nephritis Narcolepsy Non-rheumatic tricuspid valve insufficiency Nonrheumatic mitral (valve) insufficiency Osteopenia Prolonged QT interval Secondary pulmonary arterial hypertension SLE (systemic lupus erythematosus) Vitamin D deficiency Home Medications ipratropium bromide 42 mcg (0.06 %) nasal spray 1 spray intranasal BID 07/08/20 [History Last Taken 07/16/20] prednisone 5 mg tablet 5 mg PO DAILY steroid for lupus 07/08/20 [History Last Taken 07/17/20] levocetirizine 5 mg tablet 5 mg PO DAILY ALLERGIES 07/17/20 [History Last Taken 07/17/20] blood sugar diagnostic #10 ea 11/04/20 [History Last Taken Unknown] lancets 33 gauge #100 ea 11/04/20 [History Last Taken Unknown] lancets 33 gauge (OneTouch Delica Lancets) #360 ea 03/31/21 [Rx Last Taken Unknown] pregabalin 150 mg capsule 150 mg PO BID 03/31/21 [History Last Taken Unknown] OneTouch Verio test strips (blood sugar diagnostic) #360 ea 04/17/21 [Rx Last Taken Unknown] carvedilol 25 mg tablet 37.5 mg PO BID 06/10/21 [History Last Taken Unknown] hydroxychloroquine 200 mg tablet 200 mg PO DAILY antimalarial 07/08/21 [History Last Taken Unknown] hydralazine 25 mg tablet 25 mg PO 4X/DAY PRN Hypertension 08/26/21 [History Last Taken Unknown] oxycodone 5 mg tablet 5 mg PO DAILY PRN PRN Pain 08/26/21 [History Last Taken Unknown] acetaminophen 500 mg tablet 500 mg PO Q6H PRN pain/fever 11/25/21 [History Last Taken Unknown] mirtazapine 15 mg tablet 7.5 - 15 mg PO QHS 11/25/21 [History Last Taken Unknown] cyclosporine 25 mg capsule 75 mg PO QHS 01/04/22 [History Last Taken Unknown] insulin degludec 100 unit/mL (3 mL) subcutaneous pen (Tresiba FlexTouch U-100 insulin) 25 unit subcut QHS 01/04/22 [History Last Taken Unknown] ketoconazole 2 % shampoo 1 applic topical DAILY 01/04/22 [History Last Taken Unknown] desvenlafaxine succinate 100 mg tablet,extended release 24 hr 100 mg PO 02/19/22 [History Last Taken Unknown] efinaconazole 10 % topical solution with applicator 1 applic topical DAILY 02/19/22 [History Last Taken Unknown] Dexcom G6 Welder Oxyhydrogen (blood-glucose meter,continuous) #1 ea 03/04/22 [Rx Last Taken Unknown] cevimeline 30 mg capsule (Evoxac) 1 cap PO TID 05/05/22 [History Last Taken Unknown] insulin pump cartridge, continuous, BT with controller subcutaneous (Omnipod Dash Intro Kit (Gen 4) subcutaneous cartridge with controller) #1 ea 05/27/22 [Rx Last Taken Unknown] insulin pump cartridge, continuous, BT with controller subcutaneous (Omnipod Dash Intro Kit (Gen 4) subcutaneous cartridge with controller) #30 ea 05/27/22 [Rx Last Taken Unknown] sitagliptin phosphate 50 mg tablet (Januvia) 50 mg PO DAILY #30 tabs 05/29/22 [Rx Last Taken Unknown] BD Ultra-Fine Mini Pen Needle 31 gauge x 3/16 (pen needle, diabetic) #100 ea 06/30/22 [Rx Last Taken Unknown] Dexcom G6 Sensor (blood-glucose sensor) #3 ea 07/03/22 [Rx Last Taken Unknown] Dexcom G6 Transmitter (blood-glucose transmitter) #1 ea 07/03/22 [Rx Last Taken Unknown] bumetanide 2 mg tablet 2 mg PO BID 07/22/22 [History Last Taken Unknown] alpha lipoic acid 600 mg capsule 600 mg PO BID 07/23/22 [History Last Taken Unknown] cholecalciferol (vitamin D3) 50 mcg (2,000 unit) tablet (Vitamin D3) 50 mcg PO DAILY 07/23/22 [History Last Taken Unknown] clotrimazole 10 mg chandrika 10 mg mucous membrane TID 07/23/22 [History Last Taken Unknown] glimepiride 4 mg tablet 4 mg PO BID 07/23/22 [History Last Taken Unknown] insulin lispro 100 unit/mL subcutaneous pen (Humalog KwikPen (U-100) Insulin) 30 unit subcut TID 07/23/22 [History Last Taken Unknown] metolazone 2.5 mg tablet 2.5 mg PO DAILY 07/23/22 [History Last Taken Unknown] solriamfetol 150 mg tablet (Sunosi) 150 mg PO DAILY 07/23/22 [History Last Taken Unknown] valganciclovir 450 mg tablet 450 mg PO DAILY 07/23/22 [History Last Taken Unknown] Allergy/AdvReac Type Severity Reaction Status Date / Time LONG Inhibitors Allergy Angioedema Verified 07/22/22 15:34 adhesive Allergy Rash Verified 07/22/22 15:34 lisinopril Allergy Angioedema Verified 07/22/22 15:34 Sulfa (Sulfonamide Allergy Rash Verified 07/22/22 15:34 Antibiotics) sulfamethoxazole Allergy Rash Verified 07/22/22 15:34 [From Bactrim] trimethoprim [From Bactrim] Allergy Rash Verified 07/22/22 15:34 tuberculin, purified protein Allergy Unknown Verified 07/22/22 15:34 deriva Angioderm AdvReac Unknown Unknown Uncoded 07/22/22 13:15 Family History Mother Hypertension Kidney disease ALS (amyotrophic lateral sclerosis) Father Heart disease Hypertension Kidney disease Diabetes Brother Melanoma Surgical History Hip replacement planned History of esophagogastroduodenoscopy (EGD) History of left heart catheterization (03/08/20) Kidney transplant recipient port removed revision of right hip arthroplasty (05/10/19) S/P colonoscopy S/P lymph node biopsy S/P nasal polypectomy Status post carpal tunnel release Status post total hip replacement, bilateral Social History Smoking Status: Current every day smoker tobacco type: cigarettes alcohol intake: never substance use type: does not use caffeine: No what type of physical activity do you participate in: other details: PT seatbelt use: always do you feel safe at home: Yes additional social history: Single ROS ROS Narrative Admission Review of Systems: CONSTITUTIONAL: No weight loss, fever, chills, + weakness or fatigue. HEENT: Eyes: No visual loss, blurred vision, double vision or yellow sclerae. Ears, Nose, Throat: No hearing loss, sneezing, congestion, runny nose or sore throat. SKIN: No rash or itching, lesions, wounds. CARDIOVASCULAR: No chest pain, chest pressure or chest discomfort, palpitations, edema, orthopnea, syncopal events. RESPIRATORY: No shortness of breath, cough or sputum, wheezing, hemoptysis. GASTROINTESTINAL: No anorexia, nausea, vomiting or diarrhea, abdominal pain, melena, BRBPR. GENITOURINARY: No dysuria, frequency, urgency or retention. NEUROLOGICAL: + Chronic BL LE neuropathic pain. No headache, dizziness, syncope, paralysis, ataxia, focal weakness, change in bowel or bladder control, seizure. MUSCULOSKELETAL: + muscle, back pain, joint pain or stiffness. HEMATOLOGIC: + anemia, bleeding or bruising. LYMPHATICS: No enlarged nodes. No history of splenectomy. PSYCHIATRIC: + history of depression or anxiety. ENDOCRINOLOGIC: No reports of sweating, cold or heat intolerance. No polyuria or polydipsia. ALLERGIES: No history of asthma, hives, eczema or rhinitis. Vital Signs Vital Signs Vital Signs: 07/22/22 23:42 07/23/22 03:07 07/23/22 03:43 Temperature Temperature Source Pulse Rate 102 H 81 Respiratory Rate 16 16 16 Blood Pressure 146/82 H Blood Pressure Mean 103 Pulse Ox 98 95 Oxygen Delivery Method Room Air Room Air 07/23/22 05:07 07/23/22 07:58 07/23/22 12:30 Temperature 96.6 F L Temperature Source Temporal Pulse Rate 77 77 Respiratory Rate 17 Blood Pressure 116/57 L 130/91 H Blood Pressure Mean 76 104 Pulse Ox 94 96 Oxygen Delivery Method Room Air Room Air 07/23/22 14:54 07/23/22 18:01 07/23/22 21:09 Temperature Temperature Source Pulse Rate 77 73 78 Respiratory Rate 18 16 16 Blood Pressure 117/64 122/71 H 120/77 Blood Pressure Mean 81 88 91 Pulse Ox 96 95 97 Oxygen Delivery Method Room Air Room Air Room Air Weight Weight: 173 lb Body Mass Index (BMI) 29.7 Physical Exam Narrative Physical Examination: General: Awake, alert, oriented x 3 and cooperative, laying in the ED bed, fatigued otherwise no acute complaint. Skin: Normal color, normal turgor, no icterus, no cyanosis. HEENT: AT/NC, EOMI, PERRLA, MMM, no carotid bruits or JVD noted. Lungs: Mildly diminished, greater bases, appropriate effort, no rales, ronchi or wheezing. Heart: Regular rate and rhythm; no gallop, rub audible. Abdomen: Soft, obese, no obvious tenderness palpation, no suprapubic discomfort, no obvious distention, mildly hyperactive bowel sounds, no obvious HSM. Extremities: No cyanosis, clubbing, or edema, bilateral lower extremity chronic neuropathic discomfort with palpation. Neurological: Patient awake, alert, oriented as noted, cognitive function intact; pupils equally reactive to light and accommodation, cranial nerves II-XII grossly normal, moving all 4 extremities, no focal deficits, strength intact. Psychiatric: Affect appears fatigued otherwise normal, no acute evidence of depressive or anxiety feelings. Results Lab / Micro Data Result Diagrams: 07/22/22 17:50 07/22/22 17:50 Labs: Laboratory Results - last 24 hr 07/23/22 15:16: POC Glucose 345 H 07/23/22 19:35: POC Glucose 163 H 07/23/22 21:23: POC Glucose 316 H Micro: Microbiology 07/23/22 09:15 Nasal Secretion SARS-CoV-2 Antigen (Rapid) - Final 07/22/22 17:40 Urine, Clean Catch Urine Culture - Preliminary GNR lactose title search manager Assessment & Plan Assessment/Plan (1) Acute renal failure (ARF): PLAN: Plan The patient is a 51 y/o F w/ PMHx: Narcolepsy, AOCD w/ prior IV Fe/Procrit administration, Anxiety and Depression, Obesity, Diabetes mellitus type II, HTN, HLD, SLE w/ notable history of Lupus nephritis s/p R renal transplant 04/2020 w/ prior to this ESRD on HD status following with Dr. Godfrey Nephrology at (prior to txp Dr. Ambriz) who presents to the [facility] ED initially on 07/22/22 with abnormal labs with creatinine the day prior obtained outpatient 4.0 potassium 2.9 with requested transfer per Txp team; however, still awaiting bed. #1. Acute kidney injury: Secondary to suspected transplant failure given recent admission and discharge in the last week complicated by underlying BELLMAKER/nephritis, recent presentation 07/22/22 BUN/Cr 67/4.24, recent labs at prior to recent discharge never increased above 2 with last noted 07/07/2022 1.82 however on 07/21/2022 creatinine kraig to 4 and again is noted 07/22/2022 4.24. Given ongoing wait for pending, will admit to [place], pending repeat upon admission, will continue judicious hydrate, hold nephrotoxic medications and repeat chemistry in AM. Continue UTI treatment as noted, will obtain FeNa assessment as well as renal ultrasound and request nephrology involvement at [facility] while awaiting transfer. #2. ? Acute GNR LF Urinary Tract Infection: UA upon ED evaluation remarkable however patient not markedly symptomatic but given situation with worsening NANCY concern, pending UCx, continue judicious IVFs, monitor I/Os, continue IV Rocephin based on review of last urine cultures w/ transition as able pending sensitivities and speciation. #3. SLE w/ notable history of Lupus nephritis, ? Sjogren's syndrome: As noted patient s/p R renal transplant 04/2020 w/ prior to this ESRD on HD status following with Dr. Godfrey Nephrology at [facility], recent admission with discharge over the last week secondary to unfortunately transplant failure/rejection concerns, will continue hydroxychloroquine although may need to consider dose adjustments given worsening renal function, prednisone, valganciclovir as well as cyclosporine and cevimeline home regimen. #4. Hypokalemia: 07/22/2022 BMP with K+ 2.9, magnesium level requested, will request repeat labs now and if necessary further supplementation will be given, repeat level in AM. #5. Hyponatremia, suspected mild hypovolemic presentation: Patient does not clinically appear overloaded upon her initial presentation, sodium 125 with recommended continue judicious hydration per , will repeat level now given ongoing IV fluid administration over the last day, repeat level also in AM. Monitor for any overload. #6. Hypertension: Continue home regimen including Coreg, hydralazine, holding nephrotoxic regimen as well as diuretic given hyponatremia and NANCY, PRN hydralazine. #7. Diabetes mellitus type II with neuropathy: Hold oral home regimen, continue home insulin regimen, ADA/renal diet, accu checks w/ ISS, continue patient home pregabalin with regimen adjustments pending renal function. #8. Anxiety and depression: We will continue patient on mirtazapine regimen with adjustments as needed pending renal function. Given current creatinine clearance we will decrease patient does venlafaxine to 25 mg daily. #9. Narcolepsy: We will hold patient home solriamfetol given current creatinine clearance. #10. Obesity: Weight loss and lifestyle changes encouraged. #11. DVT prophylaxis: SCDs, heparin. #12. CODE status: Patient ASHWIN is her brother and living will is currently in place. Full Code. Charges/Coding Visit Charges Inpatient E&M: 68147 Init Hosp L3
[2022-07-23 22:42] LABS: Absolute Lymphocyte Count 0.98 X10^3/uL (0.83-4.51); Absolute Neutrophil Count 4.4 X10^3/uL (2.0-7.7); Basophil# 0.03 X10^3/uL; Basophil% 0.5 % (0-1); Eosinophil# 0.09 X10^3/uL; Eosinophils% 1.5 % (0-5); Hematocrit 36.4 % (37-47); Hemoglobin 11.6 g/dL (12.0-15.0); Lymphocyte # 0.98 X10^3/ul (0.83-4.51); Lymphocyte % 16.4 % (19-41); Mean Corp Hgb Conc 31.9 g/dL (32-36); Mean Corpuscular Hgb 29.4 pg (27.0-32.0); Mean Corpuscular Volume 92.2 fL (81-99); Mean Platelet Vol. 10.5 fl (6.2-12.0); Monocyte# 0.37 X10^3/uL; Monocyte% 6.2 % (0-10); NRBC Flagged by Analyzer 0 % (0-5); Neutrophil # 4.43 X10^3/uL (2.7-7.7); Neutrophil % 74.4 % (47-70); Platelet Count 290 K/mm3 (150-450); RBC Distribution Width CV 17.8 % (11.6-14.6); RBC Distribution Width SD 59.6 fl (35.1-43.9); Red Blood Count 3.95 M/mm3 (4.2-5.4)
[2022-07-23 23:10] LABS: Magnesium 2.4 mg/dL (1.6-2.6)
[2022-07-23 23:12] LABS: ALB/GLOB Ratio 0.6 RATIO (0.9-2.4); AST(SGOT) 25 U/L (15-37); Alanine Aminotransfer ALT/SGPT 10 U/L (13-56); Alkaline Phosphatase 83 U/L (45-117); Anion Gap 14 (5-15); BUN 58 mg/dL (7-18); BUN/Creat Ratio 20.5 RATIO (10-20); Calcium,Total 9.4 mg/dL (8.5-10.1); Chloride 87 mmol/L (98-107); Creatinine, Serum 2.83 mg/dL (0.55-1.02); EST Glomerular Filtration Rate 19 mL/min (>60); Est Glom Filt Rate - Afr Amer 23 mL/min (>60); Estimated Creatinine Clearance 20.76 ml/min; Globulin 5.1 g/dL (2.2-4.2); Glucose 325 mg/dL (74-106); Potassium 2.5 mmol/L (3.5-5.1); Protein, Total 8.1 g/dL (6.4-8.2); Sodium Level 127 mmol/L (136-145)
[2022-07-23] MEDS: 0.9% Normal Saline 1,000 ML 100 ML IV (23:26)
[2022-07-24] VITALS (9 sets, daily range): BP systolic 109–127; BP diastolic 69–82; PULSE 72–80; RESP 12–18; TEMP 36.7–37.3; O2SAT 92–99
[2022-07-24] MEDS: Potassium Chloride Oral Tablet 20 MEQ 60 MEQ PO (00:33)
[2022-07-24] MEDS: Ceftriaxone 1 GM/50 ML BAG IV ×2 (00:51→10:00)
[2022-07-24 00:59] LABS: Urine Sodium 48 mmol/L (Not Establ.)
--- NOTE | 2022-07-24 05:02 | NURSING ---
called to verify that a bed was still desired for this pt transfer to, there are no beds available at this time and if there is a change in need for this bed (no longer needed) please call Transfer line @ [phone]
[2022-07-24 05:37] LABS: Absolute Lymphocyte Count 1.24 X10^3/uL (0.83-4.51); Absolute Neutrophil Count 4.2 X10^3/uL (2.0-7.7); Basophil# 0.02 X10^3/uL; Basophil% 0.3 % (0-1); Eosinophil# 0.06 X10^3/uL; Hematocrit 36.9 % (37-47); Hemoglobin 11.8 g/dL (12.0-15.0); Lymphocyte # 1.24 X10^3/ul (0.83-4.51); Lymphocyte % 20.3 % (19-41); Mean Corpuscular Hgb 29.4 pg (27.0-32.0); Mean Corpuscular Volume 91.8 fL (81-99); Mean Platelet Vol. 10.7 fl (6.2-12.0); Monocyte# 0.51 X10^3/uL; Monocyte% 8.3 % (0-10); NRBC Flagged by Analyzer 0 % (0-5); Neutrophil # 4.24 X10^3/uL (2.7-7.7); Neutrophil % 69.3 % (47-70); Platelet Count 274 K/mm3 (150-450); RBC Distribution Width CV 17.7 % (11.6-14.6); RBC Distribution Width SD 58.1 fl (35.1-43.9); Red Blood Count 4.02 M/mm3 (4.2-5.4); White Blood Count 6.1 K/mm3 (4.4-11.0)
--- NOTE | 2022-07-24 05:55 | US_ITS ---
STUDY: RENAL ULTRASOUND - COMPLETE REASON FOR EXAM: Female, 51 years old. NANCY . Renal transplant patient. TECHNIQUE: Ultrasound evaluation of the kidneys was performed with real-time and static spain-scale imaging. COMPARISON: Comparison is made with prior study of 01/13/2016. FINDINGS: RIGHT KIDNEY: with moderate renal atrophy. The right kidney measures 7.8 cm x 3.6 x 3.7 cm. There is diffuse thinning of the renal cortex. The renal cortex measures 0.7 cm. There is no right renal mass or cyst. There are no right renal calculi. There is no right hydronephrosis. DISTAL RIGHT URETER: There is non-visualization of the distal right ureter. There is no demonstrated right ureterovesical junction calculus. There is no demonstrated right ureteral jet. A transplanted kidney is seen in the right lower quadrant. It measures 15.8 cm x 6.9 cm x 7.8 cm. The renal cortex measures 2.1 cm. In the lateral aspect of the kidney, there is an area of decreased echogenicity with decreased blood flow. Localized renal infarct should be ruled out. LEFT KIDNEY: with moderate renal hypertrophy. The left kidney measures 7.6 cm x 4.3 cm x 3.8 cm. There is diffuse thinning of the renal cortex. The renal cortex measures 0.7 cm. There is no left renal mass or cyst. There are no left renal calculi. There is no left hydronephrosis. DISTAL LEFT URETER: There is non-visualization of the distal left ureter. There is no demonstrated left ureterovesical junction calculus. There is no demonstrated left ureteral jet. BLADDER: The distended urinary bladder has a volume of 372.8 ml. There is a normal wall thickness of the distended urinary bladder. There is no demonstrated mass within the urinary bladder. There are no demonstrated bladder calculi. US/Kidney and Bladder IMPRESSION: Atrophy of both robinson kidneys. A transplanted kidney is seen in the right lower quadrant. Possible cortical infarct. Electronically Signed: Jonathan Garcia MD at 9:20 EST ,
[2022-07-24 06:13] LABS: ALB/GLOB Ratio 0.6 RATIO (0.9-2.4); AST(SGOT) 24 U/L (15-37); Alanine Aminotransfer ALT/SGPT 11 U/L (13-56); Albumin, Serum 2.9 g/dL (3.2-5.0); Alkaline Phosphatase 87 U/L (45-117); Anion Gap 13 (5-15); BUN 55 mg/dL (7-18); BUN/Creat Ratio 22.2 RATIO (10-20); Calcium,Total 9.1 mg/dL (8.5-10.1); Chloride 87 mmol/L (98-107); Creatinine, Serum 2.48 mg/dL (0.55-1.02); EST Glomerular Filtration Rate 22 mL/min (>60); Est Glom Filt Rate - Afr Amer 27 mL/min (>60); Globulin 5.2 g/dL (2.2-4.2); Glucose 378 mg/dL (74-106); Protein, Total 8.1 g/dL (6.4-8.2); Sodium Level 127 mmol/L (136-145); Thyroid Stim Hormone (TSH) 0.43 uIU/mL (0.358-3.74)
[2022-07-24] MEDS: Clotrimazole 10 MG Troche MUCOUS MEM (07:24)
[2022-07-24] MEDS: Insulin Lispro 100 UNIT/ML INSULN.PEN SC ×3 (07:25→15:38)
[2022-07-24] MEDS: Insulin Lispro 100 UNIT/ML INSULN.PEN 30 UNIT SC ×3 (07:25→15:38)
[2022-07-24] MEDS: Pregabalin 75 MG Capsule 150 MG PO (07:46)
[2022-07-24] MEDS: Heparin Injection (Vial) 5,000 UNIT/ML VIAL 5000 UNIT SC (07:47)
[2022-07-24] MEDS: VALGANCICLOVIR HYDROCHLORIDE 450 MG PO (07:48)
[2022-07-24] MEDS: Venlafaxine XR 37.5 MG Capsule PO (07:48)
[2022-07-24] MEDS: Carvedilol 12.5 MG Tablet 37.5 MG PO (07:49)
[2022-07-24] MEDS: Loratadine 10 MG Tablet 5 MG PO (07:49)
[2022-07-24] MEDS: Hydroxychloroquine 200 MG Tablet PO (07:50)
[2022-07-24] MEDS: predniSONE 5 MG Tablet PO (07:50)
[2022-07-24] MEDS: 0.9% Normal Saline 1,000 ML 100 ML IV (09:08)
--- NOTE | 2022-07-24 11:00 | CASEMGMT ---
RN LISSA Face to Face with patient for initial transition planning/care coordination assessment. RN CM introduced self and role at [facility]. Patient lying in bed, alert and oriented. Patient willing to participate in assessment and is able to answer all questions appropriately. Care providers, pharmacy, and demographics verified. Patient wishes to discharge home with possible HHC. Patient states she has no further needs or concerns at this time. CM to follow for discharge planning needs that may arise. PCP: Andrés Specialists: Claus, rn admit; Mary Garza Preferred Pharmacy: [place]; [facility] retail at discharge. Insurance: [employer] Prescription Benefit: yes Living Will/HPOA: yes, brother Isra Ambriz LNOK: brother, sister Living Arrangements: Patient lives with brother in single story home with 1 step to enter. Patient states she is normally independent at home but having more trouble. Patient is allowed up ad abby in room. Transportation: insurance or brother DME/HHC: Patient states she has shower chair, cane, walker, glucometer with supplies, and insulin with supplies. Patient has had [facility] in the past. Patient has previously been to [facility] and [place]. Patient is active with waiver services and has private aide 3x per week. Patient states he CM is Keesha. Disposition Plan: Patient to be transferred to pending bed availability Agata BORRERO, RN, CM
[2022-07-24 11:31] LABS: Bedside Glucose 241 mg/dL (74-106)
--- NOTE | 2022-07-24 11:54 | PN.HOSP_ITS ---
Subjective Subjective Follow-up on acute kidney injury: Patient was seen and examined. She is very sleepy. She denied any abdominal pain, or nausea or diarrhea. Awaiting a bed at the [facility]. Objective Data Objective Data Vital Signs: Vital Signs Temp Pulse Resp BP Pulse Ox O2 Del Method 99.1 F 76 16 125/77 H 97 Room Air 07/24/22 09:00 07/24/22 10:24 07/24/22 09:00 07/24/22 09:00 07/24/22 10:24 07/24/22 10:24 Oxygen Delivery Method Room Air Weight: 81.221 kg Body Mass Index (BMI) 29.5 Intake & Output: Intake and Output for Last 24 Hours 07/22/22 07/23/22 07/24/22 23:59 23:59 23:59 Intake Total 50 / 50 1000 / 1250 2675 / 2675 Balance 50 / 50 1000 / 1250 2675 / 2675 Lab / Micro Data Result Diagrams: 07/24/22 05:09 07/24/22 05:09 Labs: Laboratory Results - last 24 hr 07/23/22 15:16: POC Glucose 345 H 07/23/22 19:35: POC Glucose 163 H 07/23/22 21:23: POC Glucose 316 H 07/23/22 22:30: WBC 6.0, RBC 3.95 L, Hgb 11.6 L, Hct 36.4 L, MCV 92.2, MCH 29.4, MCHC 31.9 L, RDW Std Deviation 59.6 H, RDW Coeff of Jah 17.8 H, Plt Count 290, MPV 10.5, Immature Gran % (Auto) 1.000 H, Neut % (Auto) 74.4 H, Lymph % (Auto) 16.4 L, [place] % (Auto) 6.2, Eos % (Auto) 1.5, Baso % (Auto) 0.5, Absolute Neuts (auto) 4.4, Absolute Lymphs (auto) 0.98, Nucleated RBC % 0 07/23/22 22:30: Sodium 127 L, Potassium 2.5 L*, Chloride 87 L, Carbon Dioxide 26.0, Anion Gap 14, BUN 58 H, Creatinine 2.83 H, Estim Creat Clear Calc 20.76, Est GFR (MDRD) Af Amer 23 L, Est GFR (MDRD) Non-Af 19 L, BUN/Creatinine Ratio 20.5 H, Glucose 325 H, Calcium 9.4, Total Bilirubin 1.30 H, AST 25, ALT 10 L, Alkaline Phosphatase 83, Total Protein 8.1, Albumin 3.0 L, Globulin 5.1 H, Alb umin/Globulin Ratio 0.6 L 07/23/22 22:30: Magnesium 2.4 07/24/22 00:30: Ur Random Sodium 48, Urine Creatinine 43.60 07/24/22 05:09: WBC 6.1, RBC 4.02 L, Hgb 11.8 L, Hct 36.9 L, MCV 91.8, MCH 29.4, MCHC 32.0, RDW Std Deviation 58.1 H, RDW Coeff of Jah 17.7 H, Plt Count 274, MPV 10.7, Immature Gran % (Auto) 0.800, Neut % (Auto) 69.3, Lymph % (Auto) 20.3, [place] % (Auto) 8.3, Eos % (Auto) 1.0, Baso % (Auto) 0.3, Absolute Neuts (auto) 4.2, Absolute Lymphs (auto) 1.24, Nucleated RBC % 0 07/24/22 05:09: Sodium 127 L, Potassium 3.0 L, Chloride 87 L, Carbon Dioxide 27.0, Anion Gap 13, BUN 55 H, Creatinine 2.48 H, Estim Creat Clear Calc 23.70, Est GFR (MDRD) Af Amer 27 L, Est GFR (MDRD) Non-Af 22 L, BUN/Creatinine Ratio 22.2 H, Glucose 378 H, Calcium 9.1, Total Bilirubin 1.10 H, AST 24, ALT 11 L, Alkaline Phosphatase 87, Total Protein 8.1, Albumin 2.9 L, Globulin 5.2 H, Albumin/Globulin Ratio 0.6 L, TSH 0.43 07/24/22 10:59: POC Glucose 241 H Micro: Microbiology 07/22/22 17:40 Urine, Clean Catch Urine Culture - Final Citrobacter freundii 07/23/22 09:15 Nasal Secretion SARS-CoV-2 Antigen (Rapid) - Final Radiography Diagnostic Testing: Radiology Impression Renal Ultrasound 07/24/22 05:55 IMPRESSION: Atrophy of both [place] kidneys. A transplanted kidney is seen in the right lower quadrant. Possible cortical infarct. Electronically Signed: Jonathan Garcia MD at 9:20 EST , Physical Exam Narrative Physical exam: General: Alert, Oriented x3, Cooperative, obese, sleepy HEENT: Atraumatic Oral: Moist Mucosa Neck: Supple Lungs: Diminished to auscultation Cardiovascular: HS I+II, regular, no murmurs Abdomen: Bowel Sounds Present, Soft, Non Tender Extremities: No edema Skin: No rashes, No breakdown Neurological: Grossly intact Psych/Mental Status: Appropriate Assessment & Plan Assessment/Plan (1) Acute renal failure (ARF): PLAN: Plan 1. Acute kidney injury, in a patient with kidney transplant, ? Transplant failure 2. Asymptomatic bacteriuria 3. SLE/lupus nephritis, ?Sjogren's syndrome, continue on #3. SLE w/ notable history of Lupus nephritis, ? Sjogren's syndrome: As noted patient s/p R renal transplant 04/2020 w/ prior to this ESRD on HD status quique krueger with Dr. Godfrey [facility] at [facility], recent admission with discharge over the last week secondary to unfortunately transplant failure/rejection concerns, will continue hydroxychloroquine although may need to consider dose adjustments given worsening renal function, prednisone, valganciclovir as well as cyclosporine and cevimeline home regimen. #4. Hypokalemia: 07/22/2022 BMP with K+ 2.9, magnesium level requested, will request repeat labs now and if necessary further supplementation will be given, repeat level in AM. #5. Hyponatremia, suspected mild hypovolemic presentation: Patient does not clinically appear overloaded upon her initial presentation, sodium 125 with recommended continue judicious hydration per , will repeat level now given ongoing IV fluid administration over the last day, repeat level also in AM. Monitor for any overload. #6. Hypertension: Continue home regimen including Coreg, hydralazine, holding nephrotoxic regimen as well as diuretic given hyponatremia and NANCY, PRN hydralazine. #7. Diabetes mellitus type II with neuropathy: Hold oral home regimen, continue home insulin regimen, ADA/renal diet, accu checks w/ ISS, continue patient home pregabalin with regimen adjustments pending renal function. #8. Anxiety and depression: We will continue patient on mirtazapine regimen with adjustments as needed pending renal function. Given current creatinine clearance we will decrease patient does venlafaxine to 25 mg daily. #9. Narcolepsy: We will hold patient home solriamfetol given current creatinine clearance. #10. Obesity: Weight loss and lifestyle changes encouraged. #11. DVT prophylaxis: SCDs, heparin. #12. CODE status: Patient ASHWIN is her brother and living will is currently in place. Full Code.
[2022-07-24 12:15] LABS: Bedside Glucose 314 mg/dL (74-106)
--- NOTE | 2022-07-24 13:02 | CHAPLAIN ---
Type of Pastoral Visit _x__ Initial Visit ___ Follow-up Visit ___ On-call Visit ___ General Patient Visit ___ Spiritual Assessment ___ Family Conference ___ Bereavement ___ Rapid Response ___ Code Blue ___ Other (describe below) Pastoral Care Referral From __x_ Patient ___ Family ___ Nurse ___ Physician ___ Social Media Designer ___ Division Chair ___ Other (describe below) Sacrament/Intervention _x__ Active listening ___ Anointing ___ Nondenominational ___ Bereavement ___ Communion ___ Cornelia exploration ___ ___ Life review ___ Prayer ___ Reconciliation ___ Sacrament of Sick _x__ Supportive presence ___ Wedding ___ Other (describe below) Pastoral Comments patient is awake but admits to being very tired due to long wait in ED and longer wait for a bed at ; pt has lunch tray and is attempting to eat; pt drifts off to sleep a few times during the visit
[2022-07-24] MEDS: Glucerna Shake 120 ML LIQUID PO (14:06)
[2022-07-24] MEDS: Potassium Chloride Oral Tablet 20 MEQ 40 MEQ PO (15:58)
[2022-07-24 16:01] LABS: Bedside Glucose 376 mg/dL (74-106)
--- NOTE | 2022-07-24 16:56 | DS.PCM_ITS ---
Providers Date of Admission: 07/23/22 Date of Discharge: 07/24/22 Primary Care Physician: Dr. Mitchell Bowen MD Reason For Visit: NANCY, HYPONATREMIA, HYPOKALEMIA, ? UTI Diagnosis Discharge Diagnosis (1) Acute renal failure (ARF): Status: Acute Code(s): N17.9 - Acute kidney failure, unspecified Plan 1. Acute kidney injury 2. Asymptomatic bacteriuria 3. SLE/lupus nephritis, ?Sjogren's syndrome 4. Hypokalemia 5. Hyponatremia 6.Hypertension 7.Diabetes mellitus type II with neuropathy 8. Anxiety and depression 9. Narcolepsy 10. Obesity Medications at Discharge Home Medications ipratropium bromide 42 mcg (0.06 %) nasal spray 1 spray intranasal BID 07/08/20 prednisone 5 mg tablet 5 mg PO DAILY steroid for lupus 07/08/20 levocetirizine 5 mg tablet 5 mg PO DAILY ALLERGIES 07/17/20 blood sugar diagnostic #10 ea 11/04/20 lancets 33 gauge #100 ea 11/04/20 lancets 33 gauge (OneTouch Delica Lancets) #360 ea 03/31/21 pregabalin 150 mg capsule 150 mg PO BID 03/31/21 OneTouch Verio test strips (blood sugar diagnostic) #360 ea 04/17/21 carvedilol 25 mg tablet 37.5 mg PO BID 06/10/21 hydroxychloroquine 200 mg tablet 200 mg PO DAILY antimalarial 07/08/21 hydralazine 25 mg tablet 25 mg PO 4X/DAY PRN Hypertension 08/26/21 oxycodone 5 mg tablet 5 mg PO DAILY PRN PRN Pain 08/26/21 acetaminophen 500 mg tablet 500 mg PO Q6H PRN pain/fever 11/25/21 mirtazapine 15 mg tablet 7.5 - 15 mg PO QHS 11/25/21 cyclosporine 25 mg capsule 75 mg PO QHS 01/04/22 insulin degludec 100 unit/mL (3 mL) subcutaneous pen (Tresiba FlexTouch U-100 insulin) 25 unit subcut QHS 01/04/22 ketoconazole 2 % shampoo 1 applic topical DAILY 01/04/22 desvenlafaxine succinate 100 mg tablet,extended release 24 hr 100 mg PO 02/19/22 efinaconazole 10 % topical solution with applicator 1 applic topical DAILY 02/19/22 Dexcom G6 Shank Stapler (blood-glucose meter,continuous) #1 ea 03/04/22 cevimeline 30 mg capsule (Evoxac) 1 cap PO TID 05/05/22 insulin pump cartridge, continuous, BT with controller subcutaneous (Omnipod Dash Intro Kit (Gen 4) subcutaneous cartridge with controller) #1 ea 05/27/22 insulin pump cartridge, continuous, BT with controller subcutaneous (Omnipod Dash Intro Kit (Gen 4) subcutaneous cartridge with controller) #30 ea 05/27/22 sitagliptin phosphate 50 mg tablet (Januvia) 50 mg PO DAILY #30 tabs 05/29/22 BD Ultra-Fine Mini Pen Needle 31 gauge x 3/16 (pen needle, diabetic) #100 ea 06/30/22 Dexcom G6 Sensor (blood-glucose sensor) #3 ea 07/03/22 Dexcom G6 Transmitter (blood-glucose transmitter) #1 ea 07/03/22 bumetanide 2 mg tablet 2 mg PO BID 07/22/22 alpha lipoic acid 600 mg capsule 600 mg PO BID 07/23/22 cholecalciferol (vitamin D3) 50 mcg (2,000 unit) tablet (Vitamin D3) 50 mcg PO DAILY 07/23/22 clotrimazole 10 mg chandrika 10 mg mucous membrane TID 07/23/22 glimepiride 4 mg tablet 4 mg PO BID 07/23/22 insulin lispro 100 unit/mL subcutaneous pen (Humalog KwikPen (U-100) Insulin) 30 unit subcut TID 07/23/22 metolazone 2.5 mg tablet 2.5 mg PO DAILY 07/23/22 solriamfetol 150 mg tablet (Sunosi) 150 mg PO DAILY 07/23/22 valganciclovir 450 mg tablet 450 mg PO DAILY 07/23/22 Hospital Course Operations None Procedures None Summary of Care Provided Minutes Spent on Discharge: 35 Hospital Course: 51-year-old female with past medical history of kidney transplant in 2019, history of lupus nephritis who comes in with progressive worsening fluid retention ongoing for 2 months. This is associated with shortness of breath. Patient was recently admitted to [facility] and discharged 1 week prior to admission. She was found to be fluid overloaded with decreased urine output as well as acute UTI. She was asked to present back to the emergency room when her outpatient creatinine level was 4.0, potassium was 2.9. Patient was admitted to the [facility] floor when patient could not get a bed in the [facility]. She received IV fluids, and had her potassium replaced. Patient's creatinine gradually improved to 2.83 at the time of admission. Her creatinine was 2.4 at time of discharge to the [facility]. Physical Exam Narrative Physical exam: General: Alert, Oriented x3, Cooperative, obese HEENT: Atraumatic Oral: Moist Mucosa Neck: Supple Lungs: Clear to auscultation Cardiovascular: HS I+II, regular, no murmurs Abdomen: Bowel Sounds Present, Soft, Non Tender Extremities: No edema Skin: No rashes, No breakdown Neurological: Grossly intact Psych/Mental Status: Appropriate Weight / BMI Weight Weight: 81.221 kg Body Mass Index (BMI) 29.5 ABG / Lab / Microbiology Data Result Diagrams: 07/24/22 05:09 07/24/22 05:09 Laboratory: Laboratory Results - last 24 hr 07/23/22 19:35: POC Glucose 163 H 07/23/22 21:23: POC Glucose 316 H 07/23/22 22:30: WBC 6.0, RBC 3.95 L, Hgb 11.6 L, Hct 36.4 L, MCV 92.2, MCH 29.4, MCHC 31.9 L, RDW Std Deviation 59.6 H, RDW Coeff of Jah 17.8 H, Plt Count 290, MPV 10.5, Immature Gran % (Auto) 1.000 H, Neut % (Auto) 74.4 H, Lymph % (Auto) 16.4 L, [place] % (Auto) 6.2, Eos % (Auto) 1.5, Baso % (Auto) 0.5, Absolute Neuts (auto) 4.4, Absolute Lymphs (auto) 0.98, Nucleated RBC % 0 07/23/22 22:30: Sodium 127 L, Potassium 2.5 L*, Chloride 87 L, Carbon Dioxide 26.0, Anion Gap 14, BUN 58 H, Creatinine 2.83 H, Estim Creat Clear Calc 20.76, Est GFR (MDRD) Af Amer 23 L, Est GFR (MDRD) Non-Af 19 L, BUN/Creatinine Ratio 20.5 H, Glucose 325 H, Calcium 9.4, Total Bilirubin 1.30 H, AST 25, ALT 10 L, Alkaline Phosphatase 83, Total Protein 8.1, Albumin 3.0 L, Globulin 5.1 H, Albumin/Globulin Ratio 0.6 L 07/23/22 22:30: Magnesium 2.4 07/24/22 00:30: Ur Random Sodium 48, Urine Creatinine 43.60 07/24/22 05:09: WBC 6.1, RBC 4.02 L, Hgb 11.8 L, Hct 36.9 L, MCV 91.8, MCH 29.4, MCHC 32.0, RDW Std Deviation 58.1 H, RDW Coeff of Jah 17.7 H, Plt Count 274, MPV 10.7, Immature Gran % (Auto) 0.800, Neut % (Auto) 69.3, Lymph % (Auto) 20.3, [place] % (Auto) 8.3, Eos % (Auto) 1.0, Baso % (Auto) 0.3, Absolute Neuts (auto) 4.2, Absolute Lymphs (auto) 1.24, Nucleated RBC % 0 07/24/22 05:09: Sodium 127 L, Potassium 3.0 L, Chloride 87 L, Carbon Dioxide 27.0, Anion Gap 13, BUN 55 H, Creatinine 2.48 H, Estim Creat Clear Calc 23.70, Est GFR (MDRD) Af Amer 27 L, Est GFR (MDRD) Non-Af 22 L, BUN/Creatinine Ratio 22.2 H, Glucose 378 H, Calcium 9.1, Total Bilirubin 1.10 H, AST 24, ALT 11 L, Alkaline Phosphatase 87, Total Protein 8.1, Albumin 2.9 L, Globulin 5.2 H, Albumin/Globulin Ratio 0.6 L, TSH 0.43 07/24/22 10:59: POC Glucose 241 H 07/24/22 11:53: POC Glucose 314 H 07/24/22 15:37: POC Glucose 376 H Microbiology: Microbiology 07/22/22 17:40 Urine, Clean Catch Urine Culture - Final Citrobacter freundii 07/23/22 09:15 Nasal Secretion SARS-CoV-2 Antigen (Rapid) - Final Radiography Diagnostic Testing: Radiology Impression Renal Ultrasound 07/24/22 05:55 IMPRESSION: Atrophy of both [place] kidneys. A transplanted kidney is seen in the right lower quadrant. Possible cortical infarct. Electronically Signed: Jonathan Garcia MD at 9:20 EST , D/C Instructions Discharge Diet: Renal Diet Meaningful Use Info Meaningful Use Diagnoses (Choose all that apply): None applicable Discharge Plan Admission Admit Date/Time: 07/23/22 22:30 Primary Reason for Your Visit: Acute kidney injury Attending Provider: Edwige Young Primary Care Provider: Mitchell Bowen Chi Consulting Providers: Yokasta Burgos Discharge Orders/Prescriptions Prescriptions: No Action ipratropium bromide 42 mcg (0.06 %) spray,non-aerosol 1 spray INTRANASAL BID (DME) blood sugar diagnostic Strip See Rx Instructions .ROUTE .MEDSUPPLY Qty: 10 Label Comments: use 1 TEST STRIP to TEST BLOOD SUGAR daily Rx Instructions: As directed (DME) lancets 33 gauge misc See Rx Instructions .ROUTE .MEDSUPPLY Qty: 100 Label Comments: use 1 LANCET to TEST BLOOD SUGAR daily Rx Instructions: As directed pregabalin 150 mg capsule 150 mg PO BID (DME) lancets [OneTouch Delica Lancets] 33 gauge misc See Rx Instructions .ROUTE .MEDSUPPLY Qty: 360 3RF Rx Instructions: 4x/day carvedilol 25 mg tablet 37.5 mg PO BID hydralazine 25 mg tablet 25 mg PO 4X/DAY PRN (Reason: Hypertension) oxycodone 5 mg tablet 5 mg PO DAILY PRN PRN (Reason: Pain) acetaminophen 500 mg tablet 500 mg PO Q6H PRN (Reason: pain/fever) mirtazapine 15 mg tablet 7.5 - 15 mg PO QHS desvenlafaxine succinate 100 mg tablet extended release 24 hr 100 mg PO [place]ubl[place] 10 % solution with applicator 1 applic topical DAILY cevimeline [Evoxac] 30 mg capsule 1 cap PO TID bumetanide 2 mg tablet 2 mg PO BID hydroxychloroquine 200 mg tablet 200 mg PO DAILY Label Comments: lupus prednisone 5 mg tablet 5 mg PO DAILY levocetirizine 5 MG tablet 5 mg PO DAILY ketoconazole 2 % Shampoo 1 applic TOPICAL DAILY cyclosporine 25 mg Capsule 75 mg PO QHS insulin degludec [Tresiba FlexTouch U-100] 100 unit/mL (3 mL) insulin pen 25 unit subcut QHS insulin lispro [Humalog KwikPen Insulin] 100 unit/mL insulin pen 30 unit subcut TID metolazone 2.5 mg Tablet 2.5 mg PO DAILY clotrimazole 10 mg Chandrika 10 mg MUCOUS MEMBRANE TID valganciclovir 450 mg Tablet 450 mg PO DAILY glimepiride 4 mg Tablet 4 mg PO BID cholecalciferol (vitamin D3) [Vitamin D3] 50 mcg (2,000 unit) Tablet 50 mcg PO DAILY alpha lipoic acid 600 mg Capsule 600 mg PO BID Sunosi 150 mg Tablet 150 mg PO DAILY (DME) OneTouch Verio test strips Strip See Rx Instructions .ROUTE .MEDSUPPLY Qty: 360 3RF Rx Instructions: As directed up to 4x daily to monitor glucose levels (DME) Dexcom G6 Shank Stapler Misc See Rx Instructions .Route Qty: 1 0RF Rx Instructions: As directed (DME) Omnipod Dash Intro Kit (Gen 4) Cartridge See Rx Instructions .Route Qty: 1 0RF Rx Instructions: As directed (DME) Omnipod Dash Intro Kit (Gen 4) Cartridge See Rx Instructions .Route Qty: 30 1RF Rx Instructions: 1 pod every 72 hours Januvia 50 mg tablet 50 mg PO DAILY Qty: 30 5RF (DME) pen needle, diabetic [BD Ultra-Fine Mini Pen Needle] 31 gauge x 3/16 needle See Rx Instructions .ROUTE .MEDSUPPLY Qty: 100 3RF Rx Instructions: 3x/day (DME) Dexcom G6 Sensor Device See Rx Instructions .Route Qty: 3 3RF Rx Instructions: 1 sensor q 10 days (DME) Dexcom G6 Transmitter Device See Rx Instructions .Route Qty: 1 1RF Rx Instructions: 1 q 90 days Referrals / Follow Up: Mitchell Bowen Chi, MD [Primary Care Provider] - Disposition Discharge Orders: Discharge Patient (Routine); Ordered 07/24/22 Ordered By: Dr. Edwige Young
[2022-07-24] MEDS: Acetaminophen 325 MG Tablet 650 MG PO (19:02)
== END 2022-07-24 19:50 | disposition short-term general hospital (02) | DRG 699 ==
LOC: ED 07-23 22:25 → MS3 07-23 22:44
PROVIDERS: Admitting Provider Family Medicine; Emergency Provider Emergency Medicine; PCP Family Medicine Geriatric Medicine; Visit Provider Internal Medicine
DX: T86.19 Other complication of kidney transplant (principal); N17.9 Acute kidney failure, unspecified; E87.1 Hypo-osmolality and hyponatremia; N39.0 Urinary tract infection, site not specified; E11.40 Type 2 diabetes mellitus with diabetic neuropathy, unspecified; M32.9 Systemic lupus erythematosus, unspecified; E55.9 Vitamin D deficiency, unspecified; Z79.4 Long term (current) use of insulin; M35.00 Sjogren syndrome, unspecified; E78.5 Hyperlipidemia, unspecified; I36.1 Nonrheumatic tricuspid (valve) insufficiency; I34.0 Nonrheumatic mitral (valve) insufficiency; E87.6 Hypokalemia; I10 Essential (primary) hypertension; F41.9 Anxiety disorder, unspecified; M85.80 Other specified disorders of bone density and structure, unspecified site; Z79.52 Long term (current) use of systemic steroids; Z79.2 Long term (current) use of antibiotics; G47.419 Narcolepsy without cataplexy; F32.A Depression, unspecified; E66.9 Obesity, unspecified; Z68.29 Body mass index [BMI] 29.0-29.9, adult; R82.71 Bacteriuria
CPT/HCPCS: 36415; 76770; 80048; 80053; 81001; 82570; 82962; 83735; 84300; 84443; 85025; 87077; 87086; 87088; 87186; 87635; 87804; 87807; 87811; 97802; 99251; 99285; C9803; J7030; A4216; G0463; U0003; U0005

== ENCOUNTER → 2022-07-22 | Outpatient (CLI) | payer MEDICARE, MEDICAID, SELFPAY | END | disposition home or self-care (01) | LOC: PSN 12:16 | PROVIDERS: PCP Family Medicine Geriatric Medicine; Visit Provider Family Medicine Geriatric Medicine | DX: Z00.00 Encounter for general adult medical examination without abnormal findings (principal) | CPT/HCPCS: 87635; 87804; 87807; C9803; U0003; U0005 ==

== ENCOUNTER → 2022-08-03 | Outpatient (CLI) | payer MEDICARE, MEDICAID, SELFPAY ==
[2022-08-03 15:31] LABS: Anion Gap 4 (5-15); BUN 24 mg/dL (7-18); BUN/Creat Ratio 16.1 RATIO (10-20); Calcium,Total 9.7 mg/dL (8.5-10.1); Chloride 112 mmol/L (98-107); Creatinine, Serum 1.49 mg/dL (0.55-1.02); EST Glomerular Filtration Rate 39 mL/min (>60); Est Glom Filt Rate - Afr Amer 48 mL/min (>60); Glucose 222 mg/dL (74-106); Sodium Level 142 mmol/L (136-145)
== END | disposition home or self-care (01) ==
LOC: LAB 14:32
PROVIDERS: PCP Family Medicine Geriatric Medicine; Referring Provider Family Medicine Geriatric Medicine; Visit Provider Family Medicine Geriatric Medicine
DX: Z94.0 Kidney transplant status (principal)
CPT/HCPCS: 36415; 80048

== ENCOUNTER → 2022-10-14 | Outpatient (CLI) | payer MEDICARE, MEDICAID, SELFPAY ==
[2022-10-14 17:50] LABS: Basophil# 0.01 X10^3/uL; Basophil% 0.2 % (0-1); Eosinophil# 0.04 X10^3/uL; Eosinophils% 0.7 % (0-5); Hematocrit 41.9 % (37-47); Lymphocyte % 18.3 % (19-41); Mean Corpuscular Hgb 28.8 pg (27.0-32.0); Mean Corpuscular Volume 92.9 fL (81-99); Mean Platelet Vol. 11.1 fl (6.2-12.0); Monocyte# 0.81 X10^3/uL; Monocyte% 13.5 % (0-10); NRBC Flagged by Analyzer 0 % (0-5); Neutrophil # 4.02 X10^3/uL (2.7-7.7); Neutrophil % 66.6 % (47-70); Platelet Count 163 K/mm3 (150-450); RBC Distribution Width CV 16.4 % (11.6-14.6); Red Blood Count 4.51 M/mm3 (4.2-5.4)
[2022-10-14 18:16] LABS: ALB/GLOB Ratio 0.6 RATIO (0.9-2.4); AST(SGOT) 15 U/L (15-37); Alanine Aminotransfer ALT/SGPT 11 U/L (13-56); Albumin, Serum 3.2 g/dL (3.2-5.0); Alkaline Phosphatase 122 U/L (45-117); Anion Gap 12 (5-15); BUN 31 mg/dL (7-18); BUN/Creat Ratio 15.1 RATIO (10-20); Calcium,Total 9.5 mg/dL (8.5-10.1); Chloride 102 mmol/L (98-107); Creatinine, Serum 2.05 mg/dL (0.55-1.02); EST Glomerular Filtration Rate 27 mL/min (>60); Est Glom Filt Rate - Afr Amer 33 mL/min (>60); Globulin 5.4 g/dL (2.2-4.2); Glucose 258 mg/dL (74-106); Potassium 4.2 mmol/L (3.5-5.1); Protein, Total 8.6 g/dL (6.4-8.2); Sodium Level 136 mmol/L (136-145)
== END | disposition home or self-care (01) ==
LOC: POLAB3 14:03
PROVIDERS: PCP Family Medicine Geriatric Medicine; Visit Provider Family Medicine Geriatric Medicine
DX: E11.9 Type 2 diabetes mellitus without complications (principal); I10 Essential (primary) hypertension
CPT/HCPCS: 36415; 80053; 84443; 85025

== ENCOUNTER → 2022-11-06 | Outpatient (CLI) | payer MEDICARE, MEDICAID, SELFPAY ==
[2022-11-06 16:36] LABS: Mucous, Urine 0 SEEN /hpf (<or=2+)
[2022-11-06 17:43] LABS: Color, Urine Yellow (Yellow); Glucose, Dipstick Normal (Normal); Ketone-Dipstick Negative (Negative); Leukocyte Esterase-Dipstick 500 /ul (Negative); Nitrite-Dipstick Negative (Negative); Occult Blood-Urine 50 /ul (Negative); Protein-Dipstick 100 mg/dl (Negative); Urine Bilirubin Dipstick Negative (Negative); Urine Clarity Sl. Cloudy (Clear); Urine Urobilinogen Normal (Normal)
[2022-11-06 20:10] LABS: Red Blood Cells-Urine 0-5 SEEN /hpf (0-5); Squamous Epithelial Cells - UA 0-5 SEEN /hpf (5-10); White Blood Cells 10-25 SEEN /hpf (0-5)
[2022-11-06 20:12] LABS: Bacteria 1+ /hpf (None Seen)
== END | disposition home or self-care (01) ==
LOC: LABSPEC 16:31
PROVIDERS: PCP Family Medicine Geriatric Medicine
DX: D84.9 Immunodeficiency, unspecified (principal)
CPT/HCPCS: 81001; 87077; 87086; 87088; 87186

== ENCOUNTER → 2023-01-13 | Outpatient (CLI) | payer MEDICARE, MEDICAID, SELFPAY ==
[2023-01-13 15:43] LABS: Absolute Lymphocyte Count 1.22 X10^3/uL (0.83-4.51); Absolute Neutrophil Count 5.8 X10^3/uL (2.0-7.7); Basophil# 0.03 X10^3/uL; Basophil% 0.4 % (0-1); Eosinophil# 0.04 X10^3/uL; Eosinophils% 0.5 % (0-5); Hematocrit 44.9 % (37-47); Hemoglobin 14.4 g/dL (12.0-15.0); Lymphocyte # 1.22 X10^3/ul (0.83-4.51); Lymphocyte % 15.6 % (19-41); Mean Corp Hgb Conc 32.1 g/dL (32-36); Mean Corpuscular Hgb 29.4 pg (27.0-32.0); Mean Corpuscular Volume 91.8 fL (81-99); Mean Platelet Vol. 10.3 fl (6.2-12.0); Monocyte# 0.73 X10^3/uL; Monocyte% 9.3 % (0-10); NRBC Flagged by Analyzer 0 % (0-5); Neutrophil # 5.78 X10^3/uL (2.7-7.7); Neutrophil % 73.7 % (47-70); Platelet Count 189 K/mm3 (150-450); RBC Distribution Width CV 16.1 % (11.6-14.6); RBC Distribution Width SD 53.1 fl (35.1-43.9); Red Blood Count 4.89 M/mm3 (4.2-5.4); White Blood Count 7.8 K/mm3 (4.4-11.0)
[2023-01-13 16:46] LABS: ALB/GLOB Ratio 0.6 RATIO (0.9-2.4); AST(SGOT) 27 U/L (15-37); Alanine Aminotransfer ALT/SGPT 16 U/L (13-56); Albumin, Serum 3.5 g/dL (3.2-5.0); Alkaline Phosphatase 184 U/L (45-117); Anion Gap 10 (5-15); BUN 22 mg/dL (7-18); BUN/Creat Ratio 14.9 RATIO (10-20); Calcium,Total 10.4 mg/dL (8.5-10.1); Chloride 103 mmol/L (98-107); Creatinine, Serum 1.48 mg/dL (0.55-1.02); EST Glomerular Filtration Rate 40 mL/min (>60); Est Glom Filt Rate - Afr Amer 48 mL/min (>60); Globulin 5.7 g/dL (2.2-4.2); Glucose 164 mg/dL (74-106); Potassium 3.7 mmol/L (3.5-5.1); Protein, Total 9.2 g/dL (6.4-8.2); Sodium Level 140 mmol/L (136-145); Thyroid Stim Hormone (TSH) 0.96 uIU/mL (0.358-3.74)
== END | disposition home or self-care (01) ==
PROVIDERS: PCP Family Medicine Geriatric Medicine; Referring Provider Family Medicine Geriatric Medicine; Visit Provider Family Medicine Geriatric Medicine
DX: E11.65 Type 2 diabetes mellitus with hyperglycemia (principal); I10 Essential (primary) hypertension
CPT/HCPCS: 36415; 80053; 84443; 85025

== ENCOUNTER → 2023-01-15 | Outpatient (CLI) | payer MEDICARE, MEDICAID, SELFPAY ==
[2023-01-15 13:49] LABS: Hemoglobin A1c 6.1 % (3.8-5.6)
[2023-01-18 16:09] LABS: PROEL- A/G Ratio 0.7 (0.7-1.7); PROEL- Albumin 3.8 g/dL (2.9-4.4); PROEL- Alpha-1 Globulin 0.2 g/dL (0.0-0.4); PROEL- Alpha-2 Globulin 0.8 g/dL (0.4-1.0); PROEL- Beta Globulin 1.4 g/dL (0.7-1.3); PROEL- Gamma Globulin 2.9 g/dL (0.4-1.8); PROEL- Globulin, Total 5.4 g/dL (2.2-3.9); PROEL- TOTAL PROTEIN 9.2 g/dL (6.0-8.5)
== END | disposition home or self-care (01) ==
PROVIDERS: PCP Family Medicine Geriatric Medicine; Visit Provider Family Medicine Geriatric Medicine
DX: Z01.89 Encounter for other specified special examinations (principal); E11.65 Type 2 diabetes mellitus with hyperglycemia; E87.1 Hypo-osmolality and hyponatremia
CPT/HCPCS: 36415; 83036; 84165

== ENCOUNTER → 2023-03-04 | Outpatient (CLI) | payer MEDICARE, MEDICAID, SELFPAY ==
--- NOTE | 2023-03-04 13:12 | BI_ITS ---
MAMMOGRAPHY - BILATERAL SCREENING REASON FOR EXAM: Female, 52 years old. Routine annual screening examination. PERTINENT HISTORY: Non-contributory. TECHNIQUE: Digital bilateral breast oscar (3D mammographic acquisition) in the CC and MLO projections. 2-D mediolateral oblique (MLO) and craniocaudad (CC) views of both breasts were obtained. CAD: Full Field Digital Mammography with Computer Added Detection was performed. COMPARISON: Mammogram from 03/03/2022, 02/27/2021. FINDINGS: Breast Composition: The breasts are heterogeneously dense, which may obscure small masses. There are no dominant masses or suspicious calcifications. No other significant abnormalities are identified. There has been no significant change since the prior study. BI/SCRN MAMM (CAD)W/OSCAR BILAT IMPRESSION: Stable bilateral screening mammogram. Yearly follow-up mammogram recommended. (A) ASSESSMENT CATEGORY: BIRADS Category 1: Negative. A letter regarding these results will be sent to the patient by the facility within 30 days. Approximately 10% of breast cancers are not detected by mammography. A normal mammogram should not delay biopsy of a clinically suspicious abnormality. Electronically Signed: Jarrett Zimmer DO at 11:09 EDT ,
--- NOTE | 2023-03-04 13:13 | BD_ITS ---
STUDY: DUAL ENERGY X-RAY ABSORPTIOMETRY / DXA REASON FOR EXAM: Female, 52 years old. 627.8Menopausal postmenopausal BONE DENSITY REASON FOR EXAM TECHNIQUE: Bone Mineral Density (BMD) measurements of lumbar spine and left forearm were obtained. COMPARISON: Comparison is made with prior study February 27, 2021. FINDINGS: Lumbar Spine (L1-L4): g/cm2 (1.005) / T-score (-0.4) / Z-score (0.4) Findings are suggestive of normal bone density with a low fracture risk. Left Forearm: g/cm2 (0.487) / T-score (-1.7) / Z-score (-1.0) The T-Scores on the most recent prior examination were: Lumbar Spine (L1-L4): There has been improvement of bone density since the previous examination. BD/Dexa Bone Density Study IMPRESSION: The patient is considered osteopenic as outlined below according to World [employer] Organization (WHO) criteria with a moderate fracture risk. There has been improvement of bone density since the previous examination. Reference Information: The T-score is the number of standard deviations above or below the standard which is normal for young adults at their peak bone mineral density. The World Health Organization (WHO) interprets the T-scores as follows: Above -1 Normal bone density Between -1 and -2.5 Osteopenia Equal to / or below -2.5 Osteoporosis As a practical clinical guideline, osteopenia may be graded as follows: Mild -1 through -1.5 Moderate -1.6 through -2.0 Severe -2.1 through -2.4 The Z-score is the number of standard deviations above or below age-matched controls. A Z-score of less than -1.5 would be considered abnormal. References: 1. NIH Osteoporosis and Related Bone Diseases www osteo.org 2. International Society for Clinical Densitometry www iscd.org 3. National Osteoporosis Foundation www nof.org Electronically Signed: Jonathan Garcia MD at 10:08 EDT ,
== END | disposition home or self-care (01) ==
PROVIDERS: PCP Family Medicine Geriatric Medicine; Referring Provider Family Medicine Geriatric Medicine; Visit Provider Family Medicine Geriatric Medicine
DX: Z12.31 Encounter for screening mammogram for malignant neoplasm of breast (principal); Z78.0 Asymptomatic menopausal state
CPT/HCPCS: 77063; 77067; 77080

== ENCOUNTER → 2023-03-09 | Outpatient (CLI) | payer MEDICARE, MEDICAID, SELFPAY | END | disposition home or self-care (01) | LOC: PSN 10:19 | PROVIDERS: PCP Family Medicine Geriatric Medicine; Referring Provider Family Medicine Geriatric Medicine; Visit Provider Family Medicine Geriatric Medicine | DX: R68.83 Chills (without fever) (principal) | CPT/HCPCS: 87635; 87804; 87807; C9803 ==

== ENCOUNTER → 2023-03-11 | Outpatient (CLI) | payer MEDICARE, MEDICAID, SELFPAY | END | disposition home or self-care (01) | LOC: LABSPEC 15:53 | PROVIDERS: PCP Family Medicine Geriatric Medicine; Referring Provider Family Medicine Geriatric Medicine; Visit Provider Family Medicine Geriatric Medicine | DX: R32 Unspecified urinary incontinence (principal) | CPT/HCPCS: 87086; 87088 ==

== ENCOUNTER 2023-03-22 14:30 | Outpatient (RCR) | payer MEDICARE, MEDICAID, SELFPAY ==
--- NOTE | 2023-01-28 13:26 | HP.PTEVAL ---
Patient's Visit Information PAVITHRA PAINTER is a 52 year old F referred to Physical Therapy by Dr. Mitchell Bowen MD with a diagnosis of DEBILITY. Date of Evaluation: 01/28/23 Physical Therapist: Maureen Solis PT, Cert MDT - Visit Plan Frequency: 2x /Week Duration: 6-8 WKS Plan: *CHECK AUTH NEXT VISIT: RECORD # OF VISITS APPROVED AND EXPIRATION DATE. CHECK CODES APPROVED WITH POC*. NO RIGHT HIP INTERNAL ROATION OR ABDUCTION. *INCLUDE WRITTEN HEP IN PREPARATION FOR DISCHARGE INCASE PATIENT IS NOT ABLE TO GET TRANSPORTATION TO JOIN A MEMBER POST PT. GENERAL STRENGTHENING. GAIT AND ENDURANCE TRAINING. - Subjective PATIENT REPORTS LAST SUMMER AND FALL SHE STARTED TO RAPIDLY PUT ON WEIGHT TOPPING OUT AT 214 LBS. WAS HOSPITALIZED AND PUT ON HIGH DOSES OF DIURETICS. LOST ABOUT 40 LBS IN 9 DAYS. DX'D WITH CHF. STATES THE WEIGHT GAIN AND SOB HAVE LEAD TO MORE WEAKNESS, DECREASED FUNCTION AND JOINT PAIN WORSE THAN EVER. WAITING FOR CPAP. STATES THAT BEFORE THE CHF SHE STARTED TO WALK TO [facility] TO DO SOME PT SESSIONS BUT NOT STRONG ENOUGH TO WALK THERE NOW. PATIENT REPORTS RECEIVING HER KIDNEY TRANSPLANT MAY 09 2020 AFTER WAITING 4 YEARS. NO NEED FOR DIALYSIS ANYMORE. PATIENT REPORTS SHE HAS BILATERAL KNEE ARTHRITIS AND NECROSIS WITH A LOT OF PAIN AND OVER-ALL WEAKNESS. MOST JOINTS ARE ACHY. HER GOAL FOR THERAPY IS TO BE ABLE TO DO AT LEAST 2 FLIGHTS OF STEPS AGAIN AND GET BACK TO WHERE SHE WAS BEFORE STOPPING PT LAST TIME. STATES SHE DOES NOT FEEL COMFORTABLE GOING OUTSIDE VERY MUCH YET AND FATIGUES QUICKLY. STATES HER NEUROPATHY HAS SPREAD FROM HER TOES INTO HER FEET MAKING WALKING MORE DIFFICULT THAN BEFORE. PATIENT HOPES TO BE ABLE TO WALK TO AND USE HER [facility] MEMBERSHIP AT [facility] ONCE FORMAL PT CONCLUDES THIS TIME AND STILL WANTS TO WORK TOWARD TRYING TO BE ABLE TO DRIVE LOCALLY AGAIN BUT ISN'T SURE IT IS REALISTIC ANYMORE HAS NOT DRIVEN FOR ABOUT ABOUT 5-6 YEARS. NARCALEPSY PLAYS A ROLL IN IF SHE CAN DRIVE AGAIN OR NOT. OTHER TRANSPORTATION OPTIONS ARE HER BROTHER. NOW LIVING WITH BROTHER. PATIENT REPORTS HER KNEE AND GENERALIZED PAIN RANGES FROM ABOUT 2/10 TO 8/10. PATIENT REPORTS SHE IS DIABETIC AGAIN AND NO LONGER ABLE TO MANAGE IT WITH ORAL MEDICATIONS AND DIET ALONE SO USING INSULIN PUMP. PATIENT REPORTS THE ONLY RESTRICTION SHE HAS IS TO AVOID BENDING HER RIGHT LEG INTO INTERNAL ROTATION AND OUT TO THE SIDE PER HER THR SURGEON. PMH: RIGHT THR WITH REVISION AND OTHER SURGERIES TOTAL X 6. L THR. NIDDM. NARCOLEPSY. FIBROMYALGIA. ARTHRITIS. L ELBOW FX. HTN. OTHER: AUG 2020 PATIENT REPORTS HAVING 3 SHAN KNEE INJECTIONS THAT HELPED THE PAIN SOME. - Objective THIS PATIENT PRESENTS TO PT WELL KNOWN TO THIS PT FROM PRIOR EPISODES OF CARE IN PT FOR STRENGTHENING. PATIENT AMBULATES INDEP'LY INTO PT WITHOUT ANY ASSISTIVE DEVICES OR LOB. PATIENT DEMO'S GAIT X 1,200 PLUS FEET TODAY IN CLINIC ON LEVEL SURFACES. INCREASED LLE INTERNAL ROTATION LAST 50 FEET. FAIR CADANCE - SEE TUG TIME BELOW. INDEP TRANSFER SIT TO STAND WITHOUT UE ASSIST X 1. SEE STS TEST BELOW. Motor deficit: LLE GROSLY 4/5 WITH MMT'ING. RLE: HIP FLEX 4-/5, ABD 4-/5, ADD 4-/5, ER 3+/5, IR 3-/5. RIGHT HIP IR IS ESPECIALLY WEAK AND RIGHT HIP EXTERNAL ROTATION ROM IS STILL QUITE LIMITED. Core strength: POOR. LUMBAR MVMT LOSS: FLEX - NIL. EXT - MOD. RSG - MIN. LSG - MIN. PATIENT DENIES LBP OR HIP PAIN WITH LUMBAR ROM TESTING TODAY. SHAN UE AND LE ROM OTHERWISE IS WFL. - Balance/Special Test Scores Lower Extremity Functional Score: 20 TUG Test Time Seconds: 15.46 30 Second Chair Rise Test Seconds: 6 6 Minute Walk Test: 184 FEET IN 1.44 MIN BEFORE NEEDING TO REST. NO AD. - Goals Goal 1:: PATIENT WILL COMPLETE 9 STANDS IN 30 SECS TO DEMONSTRATE IMPROVED FUNCTIONAL STRENGTH Goal Time Frame: 6-8 Weeks Goal 2:: PATIENT WILL COMPLETE TUG IN < 10 SECS TO DEMONSTRATE IMPROVED GAIT STABILITY Goal Time Frame: 6-8 Weeks Goal 3:: PATIENT WILL BE INDEP WITH A HEP FOR CONTINUED IMPROVEMENT ONCE FORMAL PHYSICAL THERAPY CONCLUDES. Goal Time Frame: 6-8 Weeks Goal 4:: PATIENT WILL AMBULATE 500 FEET INDEP'LY IN 6 MIN TO IMPROVE ACTIVITY TOLERANCE Goal Time Frame: 6-8 Weeks Goal 5:: PATIENT WILL ASCEND AND DESCEND SINGLE CURB INDEP'LY TO HELP REINTEGRATE INTO COMMUNITY. Goal Time Frame: 6-8 Weeks Goal 6:: PATIENT WILL BE ABLE TO ASCEND/DESCEND 2 FLIGHTS OF STEPS INDEP'LY TO IMPROVE ACTIVITY TOLERANCE. Goal Time Frame: 6-8 Weeks - Anticipated Interventions Patient/Client Instruction: Educate patient on: Condition, Plan of Care, Risk Factors For the Purpose of:: To improve self management Therapeutic Exercise to Include: Strength training, Endurance training, Gait and locomotor training For the Purpose of:: To improve muscle performance and motor function, To increase tolerance to activity/condition/position, To improve ability of physical actions for home/community/work/leisure, To improve gait and locomotor functions Thank you for the opportunity to evaluate your patient. For Medicare and Medicare HMO plans, please review the plan of care and approve it. It will need to be FAXED BACK to us at [phone] for Medicare purposes. For Medicare only, by signing this I certify the plan of care. Please let me know if there are questions or concerns regarding this plan of care. Physician Signature: Date:
--- NOTE | 2023-03-22 15:21 | HP.PTREVAL ---
Re-Evaluation Intro: Dr. Mitchell Bowen MD, It has been my pleasure to treat PAVITHRA PAINTER over the last 6 visits for DEBILITY. Please see the progress note below for an update on the physical therapy plan of care! Subjective Subjective: PATIENT REPORTS CAT SCAN SHOWED HERNIA LAST WEEK BUT SHE INS'T SURE WHEN IT HAPPENED. PATIENT ALSO REPORTS EDEMA IN HER ABDOMEN AND THINKS IT IS POSSIBLY RELATED TO CHF. ALSO DIAGNOSED WITH SLEEP APNEA. SHE IS UNSURE WHEN SHE WAS OFFICIALLY DIAGNOSED WITH THESE BUT IT WAS SOMETIME THIS SPRING. STATES SHE IS CURRENTLY BACK ON ANTIBIOTICS BY DR. CORRIGAN DUE TO SEVERE SINUS INFECTION. ALREADY HAD A ROUND OF ANTIBIOTICS WITH DR. BOWEN. PATIENT REPORTS IT IS REALLY HARD TO BREATHE WHEN SHE WALKS, DOES STEPS OR EVEN TRANSFERS SIT TO STAND NOW BECAUSE OF HER BREATHING DIFFICULTIES. FOLLOW UP FOR EDEMA/WEIGHT GAIN - 20 LBS IN LAST 3 WEEKS - PENDING WITH DR. BOWEN TOMORROW. Objective Objective/Function: PATIENT WAS SEEN TODAY FOR RE-ASSESSMENT OF PROGRESS TOWARD THE SET PT GOALS AND THE NEED FOR FURTHER PHYSICAL THERAPY VS READINESS FOR DISCHARGE. PATIENT HAS ONLY BEEN ABLE TO ATTEND 4 VISITS IN APPROX THE LAST 2 MONTHS SINCE INITIAL PT EVAL 01/28/23 INITIALLY DUE TO TRANSPORTATION ISSUES THEN SINUS INFECTION/BEING TESTED FOR COVID. SHE IS EXHIBITING INCREASED DIFFICULTY BREATHING AND DECREASED MOBILITY TODAY. PHYSICIAN RE-ASSESSMENT RECOMMENDED AND FOLLOW UP PENDING WITH DR. BOWEN TOMORROW PER PATIENT REPORT. PATIENT COMMUNICATES UNDERSTANDING FOR GOING TO ED SOONER NEEDED. UPON EXAM TODAY: PATIENT DEMO'S GAIT X 150 FEET BEFORE BREATHING BECAME LABORED. INCREASED LLE INTERNAL ROTATION, WIDE BASE OF SUPPORT AND FAIR TO GOOD CADANCE - SEE TUG TIME BELOW. PATIENT ACTUALLY IS ACTUALLY WALKING PRETTY FAST TAKING QUICK SHORT STEPS. INDEP TRANSFER SIT TO STAND WITHOUT UE ASSIST X 1. SEE STS TEST BELOW. Motor deficit: LLE GROSLY 4/5 WITH MMT'ING. RLE: HIP FLEX 4-/5, ABD 4-/5, ADD 4-/5, ER 3+/5, IR 3-/5. RIGHT HIP IR IS ESPECIALLY WEAK AND RIGHT HIP EXTERNAL ROTATION ROM IS STILL QUITE LIMITED. Core strength: POOR. LUMBAR MVMT LOSS: FLEX - NIL. EXT - NT DUE TO PAIN WITH JUST POSTURE CORRECTION AND POOR CORE STRENGTH. RSG - MIN. LSG - MIN. PATIENT C/O BACK AND SHAN KNEE PAIN WITH SHAN LUMBAR SG TESTING. SHAN UE AND LE ROM OTHERWISE IS WFL. Plan Plan Plan: HOLD PT UNTIL NEW PT ORDERES REC'D. PATIENT AGREEABLE. CHECK INS AUTH BEFORE RESUMING PT. Balance/Gait/Functional tests Balance/Special Test Scores Lower Extremity Functional Score: 24 TUG Test Time Seconds: 15.39 Tug Test: <20 sec.=mostly independent 30 Second Chair Rise Test Seconds: 6 6 Minute Walk Test: 184 FEET IN 1.44 MIN BEFORE NEEDING TO REST. NO AD. Goals Goals Goal 1:: PATIENT WILL COMPLETE 9 STANDS IN 30 SECS TO DEMONSTRATE IMPROVED FUNCTIONAL STRENGTH Goal Time Frame: 6-8 Weeks Goal Progress: Not Progressing Goal 2:: PATIENT WILL COMPLETE TUG IN < 10 SECS TO DEMONSTRATE IMPROVED GAIT STABILITY Goal Time Frame: 6-8 Weeks Goal Progress: Not Progressing Goal 3:: PATIENT WILL BE INDEP WITH A HEP FOR CONTINUED IMPROVEMENT ONCE FORMAL PHYSICAL THERAPY CONCLUDES. Goal Time Frame: 6-8 Weeks Goal Progress: Not Progressing Goal 4:: PATIENT WILL AMBULATE 500 FEET INDEP'LY IN 6 MIN TO IMPROVE ACTIVITY TOLERANCE Goal Time Frame: 6-8 Weeks Goal Progress: Not Progressing Goal 5:: PATIENT WILL ASCEND AND DESCEND SINGLE CURB INDEP'LY TO HELP REINTEGRATE INTO COMMUNITY. Goal Time Frame: 6-8 Weeks Goal 6:: PATIENT WILL BE ABLE TO ASCEND/DESCEND 2 FLIGHTS OF STEPS INDEP'LY TO IMPROVE ACTIVITY TOLERANCE. Goal Time Frame: 6-8 Weeks Goal Progress: Not Progressing Anticipated Interventions Anticipated Interventions Patient/Client Instruction: Educate patient on: Condition, Plan of Care and Risk Factors For the Purpose of:: To improve self management Therapeutic Exercise to Include: Strength training, Endurance training and Gait and locomotor training For the Purpose of:: To improve muscle performance and motor function, To increase tolerance to activity/condition/position, To improve ability of physical actions for home/community/work/leisure and To improve gait and locomotor functions Re-Evaluation Ending Re-evaluation ending: Please do not hesitate to contact me at [phone] by phone or if you have questions or concerns regarding this new plan of care! Sincerely, Maureen Solis, PT, Cert MDT
--- NOTE | 2023-06-04 09:14 | HP.PT.NRP ---
Patient Information Patient Information: PAVITHRA PAITNER was seen in my office for initial evaluation on 01/28/23. The following Plan of Care was established for this patient: POC Established Initial Frequency: 2x /Week Initial Duration: 6-8 WKS Anticipated Interventions Patient/Client Instruction: Educate patient on: Condition, Plan of Care and Risk Factors For the Purpose of:: To improve self management Therapeutic Exercise to Include: Strength training, Endurance training and Gait and locomotor training For the Purpose of:: To improve muscle performance and motor function, To increase tolerance to activity/condition/position, To improve ability of physical actions for home/community/work/leisure and To improve gait and locomotor functions Last Seen Last Seen: This patient was last seen in our office 03/22/23. Pertinent comments regarding their Physical therapy will appear below: This patient has not returned to Physical Therapy and is appropriate to return to MD for further follow-up as needed. At this point I will be discontinuing this patient from physical therapy. I would be happy to see this patient again in the future if found appropriate by the physician. Thank you! Maureen Solis, PT, Cert MDT Balance/Gait/Functional tests Balance/Special Test Scores Lower Extremity Functional Score: 24 TUG Test Time Seconds: 15.39 Tug Test: <20 sec.=mostly independent 30 Second Chair Rise Test Seconds: 6 6 Minute Walk Test: 184 FEET IN 1.44 MIN BEFORE NEEDING TO REST. NO AD.
== END 2023-03-22 19:00 | disposition home or self-care (01) ==
LOC: PT 14:30
PROVIDERS: PCP Family Medicine Geriatric Medicine; Referring Provider Family Medicine Geriatric Medicine; Visit Provider Family Medicine Geriatric Medicine
DX: R53.81 Other malaise (principal)
CPT/HCPCS: 97110; 97162; 97164

== ENCOUNTER → 2023-03-22 | Outpatient (CLI) | payer MEDICARE, MEDICAID, SELFPAY | END | disposition home or self-care (01) | LOC: LABSPEC 15:32 | PROVIDERS: PCP Family Medicine Geriatric Medicine; Referring Provider Otolaryngology; Visit Provider Otolaryngology | DX: J01.90 Acute sinusitis, unspecified (principal) | CPT/HCPCS: 87070; 87077; 87186; 87205 ==

== ENCOUNTER → 2023-03-23 | Outpatient (CLI) | payer MEDICARE, MEDICAID, SELFPAY ==
[2023-03-23 16:37] LABS: Anion Gap 9 (5-15); BUN 29 mg/dL (7-18); BUN/Creat Ratio 14.8 RATIO (10-20); Calcium,Total 9.4 mg/dL (8.5-10.1); Chloride 107 mmol/L (98-107); Creatinine, Serum 1.96 mg/dL (0.55-1.02); EST Glomerular Filtration Rate 29 mL/min (>60); Est Glom Filt Rate - Afr Amer 35 mL/min (>60); Glucose 132 mg/dL (74-106); Potassium 4.6 mmol/L (3.5-5.1); Sodium Level 136 mmol/L (136-145)
== END | disposition home or self-care (01) ==
LOC: POLAB3 14:52
PROVIDERS: PCP Family Medicine Geriatric Medicine; Visit Provider Family Medicine Geriatric Medicine
DX: I50.9 Heart failure, unspecified (principal)
CPT/HCPCS: 36415; 80048

== ENCOUNTER → 2023-03-26 | Outpatient (CLI) | payer MEDICARE, MEDICAID, SELFPAY ==
[2023-03-26 12:59] LABS: Anion Gap 7 (5-15); BUN 32 mg/dL (7-18); BUN/Creat Ratio 17.9 RATIO (10-20); Calcium,Total 9.4 mg/dL (8.5-10.1); Chloride 110 mmol/L (98-107); Creatinine, Serum 1.79 mg/dL (0.55-1.02); EST Glomerular Filtration Rate 32 mL/min (>60); Est Glom Filt Rate - Afr Amer 39 mL/min (>60); Glucose 112 mg/dL (74-106); Potassium 3.7 mmol/L (3.5-5.1); Sodium Level 143 mmol/L (136-145)
== END | disposition home or self-care (01) ==
LOC: POLAB3 11:43
PROVIDERS: PCP Family Medicine Geriatric Medicine; Visit Provider Family Medicine Geriatric Medicine
DX: N18.4 Chronic kidney disease, stage 4 (severe) (principal)
CPT/HCPCS: 36415; 80048

== ENCOUNTER 2023-04-01 14:15 | Outpatient (RCR) | payer MEDICARE, MEDICAID, SELFPAY ==
[2017-01-21 11:13] LABS: Absolute Lymphocyte Count 2.56 X10^3/uL (0.83-4.51); Absolute Neutrophil Count 8.2 X10^3/uL (2.0-7.7); Basophil# 0.08 X10^3uL; Basophil% 0.7 % (0-1); Hemoglobin 11.8 g/dL (12.0-15.0); Lymphocyte # 2.56 x10^3/uL (4.0); Lymphocyte % 21.9 % (19-41); Mean Corp Hgb Conc 32.9 g/dL (32-36); Mean Corpuscular Hgb 33.3 pg (27.0-32.0); Mean Corpuscular Volume 101.4 fL (81-99); Mean Platelet Vol. 6.2 fL (6.2-12.0); Monocyte# 0.85 X10^3/uL; Monocyte% 7.3 % (0-10); Neutrophil # 8.21 X10^3/uL (2.7-7.7); Neutrophil % 70.1 % (47-70); Platelet Count 216 K/mm3 (150-450); RBC Distribution Width 17.6 % (11.6-14.6); Red Blood Count 3.55 M/mm3 (4.2-5.4); White Blood Count 11.7 K/mm3 (4.4-11.0)
[2017-01-21 11:23] VITALS: BP 137/92; PULSE 96; RESP 18; TEMP 36.8; O2SAT 100; BMI 24.3
[2017-01-21 11:55] LABS: ALB/GLOB Ratio 0.8 RATIO (0.9-2.4); AST(SGOT) 56 U/L (15-37); Alanine Aminotransfer ALT/SGPT 38 U/L (12-78); Albumin, Serum 2.8 g/dL (3.4-5.0); Alkaline Phosphatase 105 U/L (45-117); Anion Gap 11 (5-15); BUN 48 mg/dL (7-18); BUN/Creat Ratio 11.2 RATIO (10-20); Calcium,Total 8.7 mg/dL (8.5-10.1); Chloride 104 mmol/L (98-107); Creatinine, Serum 4.27 mg/dL (0.55-1.02); EST Glomerular Filtration Rate 12 mL/min (>60); Est Glom Filt Rate - Afr Amer 15 mL/min (>60); Ferritin 823 ng/mL (8-252); Globulin 3.7 g/dL (2.3-3.5); Glucose 93 mg/dL (70-110); Iron 42 ug/dL (50-170); Iron Binding Capacity,Total 227 ug/dL (250-450); PERCENT IRON SATURATION 18.5 % (15.0-55.0); Potassium 3.7 mmol/L (3.5-5.1); Protein, Total 6.5 g/dL (6.4-8.2); Sodium Level 144 mmol/L (136-145)
[2017-01-21 14:07] LABS: Immature Platelet Fraction 1.5 % (1.0-7.9); RET-HE 30.7 pg (30-35); Reticulocyte Count 3.48 % (0.5-1.5)
[2017-01-22 11:42] LABS: Vitamin B12 322 pg/mL (211-911)
[2017-07-22 13:10] VITALS: BP 123/78; PULSE 97; RESP 18; TEMP 37.4; O2SAT 99; BMI 24.5
[2018-01-20 13:07] LABS: Absolute Lymphocyte Count 0.76 X10^3/ul (0.83-4.51); Absolute Neutrophil Count 6.3 X10^3/uL (2.0-7.7); Basophil# 0.02 X10^3/uL; Basophil% 0.3 % (0-1); Hematocrit 32.6 % (37-47); Hemoglobin 10.2 g/dl (12.0-15.0); Lymphocyte # 0.76 X10^3/ul (4.0); Lymphocyte % 9.9 % (19-41); Mean Corp Hgb Conc 31.3 g/gl (32-36); Mean Corpuscular Hgb 31.3 pg (27.0-32.0); Mean Platelet Vol. 9.6 fl (6.2-12.0); Monocyte# 0.61 X10^3/uL; Monocyte% 7.9 % (0-10); Neutrophil # 6.26 X10^3/uL (2.7-7.7); Neutrophil % 81.4 % (47-70); POSITIVE COUNT NO; POSITIVE DIFFERENTIAL NO; POSITIVE MORPHOLOGY NO; Platelet Count 141 K/mm3 (150-450); RBC Distribution Width CV 17.3 % (11.6-14.6); RBC Distribution Width SD 61.9 fl (35.1-43.9); Red Blood Count 3.26 M/mm3 (4.2-5.4); White Blood Count 7.7 K/mm3 (4.4-11.0)
[2018-01-20 13:09] VITALS: BP 124/81; PULSE 85; RESP 14; TEMP 36.4; O2SAT 98; BMI 26.1
[2018-01-20 13:34] LABS: Ferritin 615 ng/mL (8-252); Iron 55 ug/dL (50-170); Iron Binding Capacity,Total 256 ug/dL (250-450); PERCENT IRON SATURATION 21.5 % (15.0-55.0)
[2018-01-20 20:51] LABS: Xtra Tube EP Lab EXTRA TUBE
[2021-05-12 15:41] LABS: Carboxyhemoglobin Frac (CO) 5.7 % (0.0-1.5)
[2021-05-12 16:18] LABS: Absolute Lymphocyte Count 0.86 X10^3/uL (0.83-4.51); Absolute Neutrophil Count 6.4 X10^3/uL (2.0-7.7); Basophil# 0.03 X10^3/uL; Basophil% 0.4 % (0-1); Eosinophil# 0.04 X10^3/uL; Eosinophils% 0.5 % (0-5); Lymphocyte # 0.86 X10^3/ul (0.83-4.51); Lymphocyte % 10.3 % (19-41); Mean Corp Hgb Conc 30.4 g/dL (32-36); Mean Corpuscular Hgb 26.9 pg (27.0-32.0); Mean Corpuscular Volume 88.5 fL (81-99); Mean Platelet Vol. 9.6 fl (6.2-12.0); Monocyte# 0.89 X10^3/uL; Monocyte% 10.7 % (0-10); NRBC Flagged by Analyzer 0 % (0-5); Neutrophil # 6.44 X10^3/uL (2.7-7.7); Neutrophil % 77.5 % (47-70); Platelet Count 212 K/mm3 (150-450); RBC Distribution Width CV 17.9 % (11.6-14.6); RBC Distribution Width SD 51.6 fl (35.1-43.9); Red Blood Count 7.11 M/mm3 (4.2-5.4); White Blood Count 8.3 K/mm3 (4.4-11.0)
[2021-05-12 16:26] LABS: Hematocrit 62.9 % (37-47)
[2021-05-12 16:28] LABS: Hemoglobin 19.1 g/dL (12.0-15.0)
[2021-05-12 16:46] LABS: LDH 204 U/L (84-246)
[2021-05-12 16:50] LABS: ALB/GLOB Ratio 0.7 RATIO (0.9-2.4); AST(SGOT) 28 U/L (15-37); Alanine Aminotransfer ALT/SGPT 27 U/L (13-56); Albumin, Serum 3.3 g/dL (3.2-5.0); Alkaline Phosphatase 95 U/L (45-117); Anion Gap 6 (5-15); BUN 14 mg/dL (7-18); BUN/Creat Ratio 15.4 RATIO (10-20); Calcium,Total 10.6 mg/dL (8.5-10.1); Chloride 105 mmol/L (98-107); Creatinine, Serum 0.91 mg/dL (0.55-1.02); EST Glomerular Filtration Rate 70 mL/min (>60); Est Glom Filt Rate - Afr Amer 85 mL/min (>60); Estimated Creatinine Clearance 65.29 ml/min; Glucose 188 mg/dL (74-106); Potassium 4.1 mmol/L (3.5-5.1); Protein, Total 8.3 g/dL (6.4-8.2); Sodium Level 135 mmol/L (136-145)
[2021-05-12 23:18] LABS: Xtra Tube EP Lab EXTRA TUBE
[2021-05-14 10:24] VITALS: BP 139/93; PULSE 74; RESP 16; TEMP 35.9; O2SAT 98; BMI 24.0
[2021-05-14 13:25] VITALS: BP 129/83; PULSE 78; RESP 16; O2SAT 98
[2021-05-14 14:19] LABS: Erythropoietin 31.2 mIU/mL (2.6-18.5)
[2021-05-26 10:13] LABS: Absolute Lymphocyte Count 1.39 X10^3/uL (0.83-4.51); Absolute Neutrophil Count 3.3 X10^3/uL (2.0-7.7); Basophil# 0.03 X10^3/uL; Basophil% 0.5 % (0-1); Eosinophil# 0.12 X10^3/uL; Eosinophils% 2.1 % (0-5); Lymphocyte # 1.39 X10^3/ul (0.83-4.51); Lymphocyte % 24.8 % (19-41); Mean Corp Hgb Conc 31.2 g/dL (32-36); Mean Corpuscular Hgb 27.4 pg (27.0-32.0); Mean Corpuscular Volume 87.8 fL (81-99); Mean Platelet Vol. 9.7 fl (6.2-12.0); Monocyte# 0.71 X10^3/uL; Monocyte% 12.7 % (0-10); NRBC Flagged by Analyzer 0 % (0-5); Platelet Count 210 K/mm3 (150-450); RBC Distribution Width CV 18.1 % (11.6-14.6); RBC Distribution Width SD 51.5 fl (35.1-43.9); Red Blood Count 7.31 M/mm3 (4.2-5.4); White Blood Count 5.6 K/mm3 (4.4-11.0)
[2021-05-26 10:32] LABS: Hematocrit 64.2 % (37-47)
[2021-05-26 10:34] LABS: Differential Indicated SCAN CRITERIA MET
[2021-05-26 12:42] VITALS: BP 104/74; PULSE 83; RESP 16; TEMP 36.8; O2SAT 98; BMI 24.0
[2021-05-26 18:09] LABS: Xtra Tube EP Lab EXTRA TUBE
[2021-05-27 13:00] LABS: Pathologist Review Reviewed
[2021-06-03 15:07] LABS: Carboxyhemoglobin Frac (CO) 2.3 % (0.0-1.5)
[2021-06-03 15:16] LABS: Absolute Lymphocyte Count 1.14 X10^3/uL (0.83-4.51); Absolute Neutrophil Count 6.4 X10^3/uL (2.0-7.7); Basophil# 0.04 X10^3/uL; Basophil% 0.5 % (0-1); Eosinophil# 0.06 X10^3/uL; Eosinophils% 0.7 % (0-5); Lymphocyte # 1.14 X10^3/ul (0.83-4.51); Lymphocyte % 13.4 % (19-41); Mean Corp Hgb Conc 31.4 g/dL (32-36); Mean Corpuscular Hgb 27.4 pg (27.0-32.0); Mean Corpuscular Volume 87.5 fL (81-99); Mean Platelet Vol. 9.6 fl (6.2-12.0); Monocyte# 0.74 X10^3/uL; Monocyte% 8.7 % (0-10); NRBC Flagged by Analyzer 0 % (0-5); Neutrophil # 6.44 X10^3/uL (2.7-7.7); Neutrophil % 75.6 % (47-70); Platelet Count 221 K/mm3 (150-450); RBC Distribution Width CV 18.1 % (11.6-14.6); RBC Distribution Width SD 52.6 fl (35.1-43.9); Red Blood Count 6.74 M/mm3 (4.2-5.4); White Blood Count 8.5 K/mm3 (4.4-11.0)
[2021-06-03 15:22] LABS: LDH 260 U/L (84-246)
[2021-06-03 15:25] LABS: ALB/GLOB Ratio 0.7 RATIO (0.9-2.4); AST(SGOT) 44 U/L (15-37); Alanine Aminotransfer ALT/SGPT 30 U/L (13-56); Albumin, Serum 3.4 g/dL (3.2-5.0); Alkaline Phosphatase 82 U/L (45-117); Anion Gap 10 (5-15); BUN 24 mg/dL (7-18); BUN/Creat Ratio 23.1 RATIO (10-20); Calcium,Total 11.2 mg/dL (8.5-10.1); Chloride 105 mmol/L (98-107); Creatinine, Serum 1.04 mg/dL (0.55-1.02); EST Glomerular Filtration Rate 60 mL/min (>60); Est Glom Filt Rate - Afr Amer 73 mL/min (>60); Estimated Creatinine Clearance 57.13 ml/min; Globulin 4.9 g/dL (2.2-4.2); Glucose 131 mg/dL (74-106); Potassium 4.7 mmol/L (3.5-5.1); Protein, Total 8.3 g/dL (6.4-8.2); Sodium Level 135 mmol/L (136-145)
[2021-06-03 16:07] LABS: Hemoglobin 18.5 g/dL (12.0-15.0)
[2021-06-03 23:04] LABS: Xtra Tube EP Lab EXTRA TUBE
[2021-06-04 12:40] LABS: Pathologist Review Reviewed
[2021-06-05 14:14] VITALS: BP 117/75; PULSE 60; RESP 16; TEMP 36.1; O2SAT 95; BMI 24.0
[2021-06-05 15:45] VITALS: BP 128/79; PULSE 83; RESP 16; TEMP 36.6; O2SAT 100
[2021-06-09 15:38] LABS: Absolute Lymphocyte Count 0.93 X10^3/uL (0.83-4.51); Absolute Neutrophil Count 7.3 X10^3/uL (2.0-7.7); Basophil# 0.04 X10^3/uL; Basophil% 0.4 % (0-1); Eosinophil# 0.02 X10^3/uL; Eosinophils% 0.2 % (0-5); Hemoglobin 17.8 g/dL (12.0-15.0); Lymphocyte # 0.93 X10^3/ul (0.83-4.51); Lymphocyte % 9.9 % (19-41); Mean Corp Hgb Conc 31.9 g/dL (32-36); Mean Corpuscular Volume 87.7 fL (81-99); Mean Platelet Vol. 9.7 fl (6.2-12.0); Monocyte% 9.6 % (0-10); NRBC Flagged by Analyzer 0 % (0-5); Neutrophil # 7.32 X10^3/uL (2.7-7.7); Platelet Count 218 K/mm3 (150-450); RBC Distribution Width CV 18.6 % (11.6-14.6); RBC Distribution Width SD 53.5 fl (35.1-43.9); Red Blood Count 6.36 M/mm3 (4.2-5.4); White Blood Count 9.4 K/mm3 (4.4-11.0)
[2021-06-09 15:43] LABS: Hematocrit 55.8 % (37-47)
[2021-06-09 15:57] LABS: LDH 265 U/L (84-246)
[2021-06-09 16:01] LABS: Carboxyhemoglobin Frac (CO) 2.7 % (0.0-1.5)
[2021-06-09 16:20] LABS: ALB/GLOB Ratio 0.7 RATIO (0.9-2.4); AST(SGOT) 53 U/L (15-37); Alanine Aminotransfer ALT/SGPT 55 U/L (13-56); Albumin, Serum 3.2 g/dL (3.2-5.0); Alkaline Phosphatase 93 U/L (45-117); Anion Gap 8 (5-15); BUN 29 mg/dL (7-18); Calcium,Total 10.5 mg/dL (8.5-10.1); Chloride 103 mmol/L (98-107); Creatinine, Serum 1.21 mg/dL (0.55-1.02); EST Glomerular Filtration Rate 50 mL/min (>60); Est Glom Filt Rate - Afr Amer 61 mL/min (>60); Globulin 4.8 g/dL (2.2-4.2); Glucose 194 mg/dL (74-106); Potassium 4.4 mmol/L (3.5-5.1); Sodium Level 136 mmol/L (136-145)
[2021-06-09 23:31] LABS: Xtra Tube EP Lab EXTRA TUBE
[2021-06-12 14:25] VITALS: BP 107/73; PULSE 87; RESP 16; TEMP 36.2; O2SAT 98
[2021-06-16 13:40] VITALS: BP 97/63; PULSE 96; RESP 16; TEMP 35.8; O2SAT 99
[2021-06-16 15:09] VITALS: BP 98/67; PULSE 92; RESP 16; O2SAT 100
[2021-06-23 14:47] VITALS: BP 127/85; PULSE 89; RESP 16; TEMP 36.2; O2SAT 98
[2021-06-23 15:59] VITALS: BP 103/68; PULSE 90; RESP 16; TEMP 36.4; O2SAT 98
[2021-07-01 14:36] VITALS: RESP 16
[2021-07-01 15:00] VITALS: BP 100/73; PULSE 99; RESP 16; TEMP 36.4; O2SAT 99
[2021-07-08 14:24] LABS: Absolute Lymphocyte Count 0.77 X10^3/uL (0.83-4.51); Absolute Neutrophil Count 3.7 X10^3/uL (2.0-7.7); Basophil# 0.03 X10^3/uL; Basophil% 0.6 % (0-1); Eosinophil# 0.07 X10^3/uL; Eosinophils% 1.4 % (0-5); Hematocrit 37.8 % (37-47); Hemoglobin 11.3 g/dL (12.0-15.0); Lymphocyte # 0.77 X10^3/ul (0.83-4.51); Lymphocyte % 15.5 % (19-41); Mean Corp Hgb Conc 29.9 g/dL (32-36); Mean Corpuscular Volume 86.9 fL (81-99); Mean Platelet Vol. 9.4 fl (6.2-12.0); Monocyte# 0.37 X10^3/uL; Monocyte% 7.5 % (0-10); NRBC Flagged by Analyzer 0.4 % (0-5); Neutrophil # 3.66 X10^3/uL (2.7-7.7); Neutrophil % 73.8 % (47-70); Platelet Count 349 K/mm3 (150-450); RBC Distribution Width CV 15.1 % (11.6-14.6); RBC Distribution Width SD 48.2 fl (35.1-43.9); Red Blood Count 4.35 M/mm3 (4.2-5.4)
[2021-07-08 14:50] LABS: LDH 195 U/L (84-246)
[2021-07-08 14:53] LABS: ALB/GLOB Ratio 0.7 RATIO (0.9-2.4); AST(SGOT) 20 U/L (15-37); Alanine Aminotransfer ALT/SGPT 16 U/L (13-56); Albumin, Serum 3.3 g/dL (3.2-5.0); Alkaline Phosphatase 88 U/L (45-117); Anion Gap 11 (5-15); BUN 14 mg/dL (7-18); BUN/Creat Ratio 13.3 RATIO (10-20); Calcium,Total 9.9 mg/dL (8.5-10.1); Chloride 104 mmol/L (98-107); Creatinine, Serum 1.05 mg/dL (0.55-1.02); EST Glomerular Filtration Rate 59 mL/min (>60); Est Glom Filt Rate - Afr Amer 72 mL/min (>60); Estimated Creatinine Clearance 56.58 ml/min; Globulin 4.9 g/dL (2.2-4.2); Glucose 247 mg/dL (74-106); Potassium 4.4 mmol/L (3.5-5.1); Protein, Total 8.2 g/dL (6.4-8.2); Sodium Level 138 mmol/L (136-145)
[2021-07-08 22:17] LABS: Xtra Tube EP Lab EXTRA TUBE
[2021-11-04 14:13] LABS: Absolute Lymphocyte Count 1.29 X10^3/uL (0.83-4.51); Absolute Neutrophil Count 4.3 X10^3/uL (2.0-7.7); Basophil# 0.04 X10^3/uL; Basophil% 0.6 % (0-1); Eosinophil# 0.03 X10^3/uL; Eosinophils% 0.5 % (0-5); Hematocrit 44.2 % (37-47); Hemoglobin 12.8 g/dL (12.0-15.0); Lymphocyte # 1.29 X10^3/ul (0.83-4.51); Lymphocyte % 20.3 % (19-41); Mean Corpuscular Volume 79.5 fL (81-99); Mean Platelet Vol. 9.1 fl (6.2-12.0); Monocyte% 9.4 % (0-10); NRBC Flagged by Analyzer 0 % (0-5); Neutrophil # 4.27 X10^3/uL (2.7-7.7); Neutrophil % 67.2 % (47-70); Platelet Count 278 K/mm3 (150-450); RBC Distribution Width CV 19.1 % (11.6-14.6); RBC Distribution Width SD 52.4 fl (35.1-43.9); Red Blood Count 5.56 M/mm3 (4.2-5.4); White Blood Count 6.4 K/mm3 (4.4-11.0)
[2021-11-04 14:17] LABS: Carboxyhemoglobin Frac (CO) 4.2 % (0.0-1.5)
[2021-11-04 14:19] LABS: ALB/GLOB Ratio 0.8 RATIO (0.9-2.4); AST(SGOT) 24 U/L (15-37); Alanine Aminotransfer ALT/SGPT 22 U/L (13-56); Albumin, Serum 3.3 g/dL (3.2-5.0); Alkaline Phosphatase 84 U/L (45-117); Anion Gap 8 (5-15); BUN 16 mg/dL (7-18); BUN/Creat Ratio 13.8 RATIO (10-20); Calcium,Total 10.4 mg/dL (8.5-10.1); Chloride 102 mmol/L (98-107); Creatinine, Serum 1.16 mg/dL (0.55-1.02); EST Glomerular Filtration Rate 53 mL/min (>60); Est Glom Filt Rate - Afr Amer 64 mL/min (>60); Estimated Creatinine Clearance 50.66 ml/min; Globulin 4.4 g/dL (2.2-4.2); Glucose 296 mg/dL (74-106); LDH 222 U/L (84-246); Potassium 4.6 mmol/L (3.5-5.1); Protein, Total 7.7 g/dL (6.4-8.2); Sodium Level 134 mmol/L (136-145)
[2022-02-24 13:45] LABS: Absolute Neutrophil Count 4.9 X10^3/uL (2.0-7.7); Basophil# 0.02 X10^3/uL; Basophil% 0.3 % (0-1); Eosinophil# 0.04 X10^3/uL; Eosinophils% 0.6 % (0-5); Hematocrit 44.1 % (37-47); Hemoglobin 13.6 g/dL (12.0-15.0); Lymphocyte % 20.9 % (19-41); Mean Corp Hgb Conc 30.8 g/dL (32-36); Mean Corpuscular Hgb 27.3 pg (27.0-32.0); Mean Corpuscular Volume 88.4 fL (81-99); Mean Platelet Vol. 10.4 fl (6.2-12.0); Monocyte# 0.69 X10^3/uL; Monocyte% 9.6 % (0-10); NRBC Flagged by Analyzer 0 % (0-5); Neutrophil % 68.3 % (47-70); Platelet Count 193 K/mm3 (150-450); RBC Distribution Width CV 18.3 % (11.6-14.6); RBC Distribution Width SD 59.4 fl (35.1-43.9); Red Blood Count 4.99 M/mm3 (4.2-5.4); White Blood Count 7.2 K/mm3 (4.4-11.0)
[2022-02-24 14:21] LABS: Carboxyhemoglobin Frac (CO) 2.2 % (0.0-1.5)
[2022-02-24 14:37] LABS: ALB/GLOB Ratio 0.7 RATIO (0.9-2.4); AST(SGOT) 60 U/L (15-37); Alanine Aminotransfer ALT/SGPT 36 U/L (13-56); Albumin, Serum 3.5 g/dL (3.2-5.0); Alkaline Phosphatase 89 U/L (45-117); Anion Gap 8 (5-15); BUN 25 mg/dL (7-18); BUN/Creat Ratio 17.6 RATIO (10-20); Calcium,Total 10.3 mg/dL (8.5-10.1); Chloride 106 mmol/L (98-107); Creatinine, Serum 1.42 mg/dL (0.55-1.02); EST Glomerular Filtration Rate 42 mL/min (>60); Est Glom Filt Rate - Afr Amer 51 mL/min (>60); Estimated Creatinine Clearance 41.38 ml/min; Ferritin 36 ng/mL (8-252); Globulin 5.3 g/dL (2.2-4.2); Glucose 236 mg/dL (74-106); Iron 65 ug/dL (50-170); Iron Binding Capacity,Total 380 ug/dL (250-450); LDH 253 U/L (84-246); PERCENT IRON SATURATION 17.1 % (15.0-55.0); Potassium 4.3 mmol/L (3.5-5.1); Protein, Total 8.8 g/dL (6.4-8.2); Sodium Level 137 mmol/L (136-145)
[2022-02-26 21:50] LABS: Erythropoietin 17.7 mIU/mL (2.6-18.5)
[2023-04-01 14:15] LABS: Absolute Neutrophil Count 3.8 X10^3/uL (2.0-7.7); Basophil# 0.03 X10^3/uL; Basophil% 0.5 % (0-1); Eosinophil# 0.06 X10^3/uL; Eosinophils% 1.1 % (0-5); Hematocrit 37.2 % (37-47); Hemoglobin 11.7 g/dL (12.0-15.0); Lymphocyte % 14.1 % (19-41); Mean Corp Hgb Conc 31.5 g/dL (32-36); Mean Corpuscular Volume 98.4 fL (81-99); Mean Platelet Vol. 10.4 fl (6.2-12.0); Monocyte# 0.96 X10^3/uL; NRBC Flagged by Analyzer 0 % (0-5); Neutrophil # 3.78 X10^3/uL (2.7-7.7); Neutrophil % 66.8 % (47-70); Platelet Count 136 K/mm3 (150-450); RBC Distribution Width CV 17.6 % (11.6-14.6); RBC Distribution Width SD 61.8 fl (35.1-43.9); Red Blood Count 3.78 M/mm3 (4.2-5.4); White Blood Count 5.7 K/mm3 (4.4-11.0)
[2023-04-01 16:59] LABS: ALB/GLOB Ratio 0.7 RATIO (0.9-2.4); AST(SGOT) 23 U/L (15-37); Alanine Aminotransfer ALT/SGPT 12 U/L (13-56); Albumin, Serum 3.1 g/dL (3.2-5.0); Alkaline Phosphatase 126 U/L (45-117); Anion Gap 7 (5-15); BUN 26 mg/dL (7-18); BUN/Creat Ratio 10.9 RATIO (10-20); Calcium,Total 9.4 mg/dL (8.5-10.1); Chloride 105 mmol/L (98-107); Creatinine, Serum 2.38 mg/dL (0.55-1.02); EST Glomerular Filtration Rate 23 mL/min (>60); Est Glom Filt Rate - Afr Amer 28 mL/min (>60); Estimated Creatinine Clearance 24.42 ml/min; Globulin 4.6 g/dL (2.2-4.2); Glucose 171 mg/dL (74-106); Potassium 4.3 mmol/L (3.5-5.1); Protein, Total 7.7 g/dL (6.4-8.2); Sodium Level 139 mmol/L (136-145)
[2023-04-01 17:00] LABS: BNP,B-Type NATRIURETIC PEPTIDE 1625.4 pg/mL (0-100)
[2023-04-01 22:12] LABS: Xtra Tube EP Lab EXTRA TUBE
== END 2023-04-01 23:59 | disposition home or self-care (01) ==
LOC: POLAB3 14:15
PROVIDERS: Nurse Practitioner Family; Family Provider Family Medicine Geriatric Medicine; PCP Family Medicine Geriatric Medicine; Referring Provider Internal Medicine Medical Oncology; Visit Provider Family Medicine Geriatric Medicine
DX: N18.4 Chronic kidney disease, stage 4 (severe) (principal); R63.5 Abnormal weight gain; D75.1 Secondary polycythemia; M32.9 Systemic lupus erythematosus, unspecified
CPT/HCPCS: 36415; 36591; 71046; 80053; 82375; 82607; 82668; 82728; 82746; 83036; 83540; 83550; 83615; 83880; 85025; 85045; 97802; 99195; J7040; A4216

== ENCOUNTER 2023-04-29 16:23 | Emergency (ER) | payer MEDICARE, MEDICAID, SELFPAY ==
[2023-04-29 16:27] VITALS: BP 138/97; PULSE 60; RESP 22; TEMP 36.8; O2SAT 95
[2023-04-29 16:37] VITALS: O2SAT 95
[2023-04-29 16:38] VITALS: BP 149/101; PULSE 82; RESP 24; O2SAT 93
[2023-04-29 16:40] VITALS: BMI 15.3
--- NOTE | 2023-04-29 17:04 | EKG12_ITS ---
Test Reason : SOB Blood Pressure : / mmHG Vent. Rate : 076 BPM Atrial Rate : 076 BPM P-R Int : 182 ms QRS Dur : 104 ms QT Int : 356 ms P-R-T Axes : 041 -22 -13 degrees QTc Int : 400 ms Critical Test Result: STEMI AGE AND GENDER SPECIFIC ECG ANALYSIS Normal sinus rhythm unchanged from prior Abnormal ECG Confirmed by YANET AMAYA ([id number]), assistant film editor LUISA PRESTON ([id number]) on 05/04/2023 9:01:24 AM Referred By: Confirmed By:YANET AMAYA
--- NOTE | 2023-04-29 17:05 | EDS_ITS ---
HPI History of Present Illness Chief Complaint: Shortness of Breath Informant: patient Onset/Context/Timing Onset: Days Context: Gradual Onset Narrative Narrative: Patient presents with increased shortness of breath and weight gain. She has a history of CHF. She was admitted to the [facility] 2 weeks ago. She was there secondary to heart valve disorder, CHF, with a history of kidney transplant. Patient states that she has noted increasing shortness of breath and weight gain over the past week. She was seen by a new press service reader from that works in the [facility] office 2 days ago. She states at that time her creatinine had bumped slightly so they told her to decrease her Bumex. She states she also has urinary symptoms and they collected a urine sample. She received a phone call while she was sitting here waiting to be seen that she does have a UTI and an antibiotic has been called into the pharmacy for her. She denies fever or chills. She reports some sinus congestion but no cough or chest pain. 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 Narcolepsy Non-rheumatic tricuspid valve insufficiency Nonrheumatic mitral (valve) insufficiency Obstructive sleep apnea Osteopenia Prolonged QT interval Right ventricular dilation Secondary pulmonary arterial hypertension SLE (systemic lupus erythematosus) Vitamin D deficiency Home Medications ipratropium bromide 42 mcg (0.06 %) nasal spray 1 spray intranasal BID 07/08/20 [History Last Taken 07/16/20] prednisone 5 mg tablet 5 mg PO DAILY steroid for lupus 07/08/20 [History Last Taken 07/17/20] levocetirizine 5 mg tablet 5 mg PO DAILY ALLERGIES 07/17/20 [History Last Taken 07/17/20] blood sugar diagnostic #10 ea 11/04/20 [History Last Taken Unknown] lancets 33 gauge #100 ea 11/04/20 [History Last Taken Unknown] pregabalin 150 mg capsule 150 mg PO BID 03/31/21 [History Last Taken Unknown] OneTouch Verio test strips (blood sugar diagnostic) #360 ea 04/17/21 [Rx Last Taken Unknown] hydroxychloroquine 200 mg tablet 200 mg PO DAILY antimalarial 07/08/21 [History Last Taken Unknown] hydralazine 25 mg tablet 25 mg PO 4X/DAY PRN Hypertension 08/26/21 [History Last Taken Unknown] oxycodone 5 mg tablet 5 mg PO DAILY PRN PRN Pain 08/26/21 [History Last Taken Unknown] acetaminophen 500 mg tablet 500 mg PO Q6H PRN pain/fever 11/25/21 [History Last Taken Unknown] ketoconazole 2 % shampoo 1 applic topical DAILY 01/04/22 [History Last Taken Unknown] desvenlafaxine succinate 100 mg tablet,extended release 24 hr 100 mg PO 02/19/22 [History Last Taken Unknown] efinaconazole 10 % topical solution with applicator 1 applic topical DAILY 02/19/22 [History Last Taken Unknown] Dexcom G6 Sand Buffer (blood-glucose meter,continuous) #1 ea 03/04/22 [Rx Last Taken Unknown] cevimeline 30 mg capsule (Evoxac) 1 cap PO TID 05/05/22 [History Last Taken Unknown] BD Ultra-Fine Mini Pen Needle 31 gauge x 3/16 (pen needle, diabetic) #100 ea 06/30/22 [Rx Last Taken Unknown] alpha lipoic acid 600 mg capsule 600 mg PO BID 07/23/22 [History Last Taken Unknown] solriamfetol 150 mg tablet (Sunosi) 150 mg PO DAILY 07/23/22 [History Last Taken Unknown] carvedilol 25 mg tablet 25 mg PO BID 08/14/22 [History Last Taken Unknown] sitagliptin phosphate 50 mg tablet (Januvia) 50 mg PO DAILY #90 tabs 11/27/22 [Rx Last Taken Unknown] Dexcom G6 Sensor (blood-glucose sensor) #3 ea 02/05/23 [Rx Last Taken Unknown] mycophenolate mofetil 250 mg capsule (CellCept) 500 mg PO BID 03/04/23 [History Last Taken Unknown] cyclosporine 25 mg capsule 75 mg PO BID 03/05/23 [History Last Taken Unknown] lancets 33 gauge (OneTouch Delica Lancets) 03/05/23 [History Last Taken Unknown] mirtazapine 15 mg tablet 30 mg PO QHS 03/05/23 [History Last Taken Unknown] Humalog U-100 Insulin 100 unit/mL subcutaneous solution (insulin lispro) 100 unit subcut DAILY #90 mL 03/24/23 [Rx Last Taken Unknown] dapagliflozin propanediol 5 mg tablet (Farxiga) 5 mg PO DAILY #90 tabs 03/26/23 [Rx Last Taken Unknown] Lactobacillus acidophilus (Acidophilus capsule) 10 mg PO DAILY 04/01/23 [History Last Taken Unknown] bumetanide 1 mg tablet 1 mg PO Q12H 04/01/23 [History Last Taken Unknown] cefdinir 300 mg capsule mg PO 04/01/23 [History Last Taken Unknown] clindamycin 1.2 % (1 % base)-benzoyl peroxide 5 % topical gel topical 04/01/23 [History Last Taken Unknown] Dexcom G6 Transmitter (blood-glucose transmitter) #1 ea 04/21/23 [Rx Last Taken Unknown] insulin pump cart,automated,BT (Omnipod 5 G6 Pods (Gen 5) subcutaneous cartridge) #45 ea 04/21/23 [Rx Last Taken Unknown] Allergy/AdvReac Type Severity Reaction Status Date / Time LONG Inhibitors Allergy Angioedema Verified 04/29/23 16:27 adhesive Allergy Rash Verified 04/29/23 16:27 lisinopril Allergy Angioedema Verified 04/29/23 16:27 Sulfa (Sulfonamide Allergy Rash Verified 04/29/23 16:27 Antibiotics) sulfamethoxazole Allergy Rash Verified 04/29/23 16:27 [From Bactrim] trimethoprim [From Bactrim] Allergy Rash Verified 04/29/23 16:27 tuberculin, purified protein Allergy Unknown Verified 04/29/23 16:27 deriva Family History Mother Hypertension Kidney disease ALS (amyotrophic lateral sclerosis) Father Heart disease Hypertension Kidney disease Diabetes Brother Melanoma Surgical History Hip replacement planned History of esophagogastroduodenoscopy (EGD) History of left heart catheterization (03/08/20) Kidney transplant recipient port removed revision of right hip arthroplasty (05/10/19) S/P colonoscopy S/P lymph node biopsy S/P nasal polypectomy Status post carpal tunnel release Status post total hip replacement, bilateral Social History Smoking Status: Former smoker alcohol intake: never substance use type: does not use caffeine: No what type of physical activity do you participate in: other details: PT seatbelt use: always do you feel safe at home: Yes additional social history: Single ROS ROS ED Constitutional Constitutional ED: Denies chills or fever(s) Eyes Eyes: Denies change in vision ENT ENT ED: Denies rhinorrhea or sore throat Cardiovascular Cardiovascular: Denies chest pain or palpitations Respiratory/Chest Respiratory/Chest: Reports dyspnea; Denies cough Gastrointestinal Gastrointestinal: Denies abdominal pain, diarrhea, nausea or vomiting Genitourinary Genitourinary ED: Reports dysuria Musculoskeletal Musculoskeletal: Reports myalgias; Denies back pain or extremity pain Integumentary Denies Abrasions or rash Neurologic Neurologic: Denies headache(s) or weakness Psychiatric Psychiatric: Denies anxiety or depression Allergic/Immunologic Allergic/Immunologic ED: Denies lip swelling or urticaria EXAM Physical Exam Const Vital Signs: 04/29/23 16:27 04/29/23 16:37 04/29/23 16:38 Temperature 98.2 F Temperature Source Temporal Pulse Rate 60 82 Respiratory Rate 22 H 24 H Respiratory Effort Short of Breath Respiratory Depth Normal Respiratory Pattern Normal Blood Pressure 138/97 H 149/101 H Blood Pressure Mean 110 117 Pulse Ox 95 93 Oxygen Delivery Method Room Air Room Air Room Air 04/29/23 18:52 04/29/23 20:39 04/29/23 23:09 Temperature Temperature Source Pulse Rate 75 79 72 Respiratory Rate 15 16 18 Respiratory Effort Respiratory Depth Respiratory Pattern Blood Pressure 119/96 H 138/95 H 159/101 H Blood Pressure Mean 103 109 Pulse Ox 98 97 95 Oxygen Delivery Method Room Air Room Air Positive well nourished and well developed General Appearance ED: well developed HEENT Reports normocephalic and head/scalp atraumatic Eyes PERRL and EOMs intact bilaterally Neck supple Chest Wall inspection of chest normal and palpation of chest normal Resp normal respiratory effort and clear to auscultation bilaterally Cardio regular rate and regular rhythm GI non-tender Palpation: soft Extremity normal to inspection Extremity Narrative: No lower extremity edema. Neuro oriented x3 and no sensory deficits noted Sensorium / Orientation: alert Motor Exam: strength 5/5 throughout Psych mental status grossly normal Skin no rashes or lesions noted MDM MDM MDM Narrative Medical decision making narrative: Patient placed on clinical nursing director. EKG obtained to evaluate for cardiac arrhythmia/ischemia. Chest x-ray obtained to evaluate for acute lung pathology, cardiac size, or mediastinal abnormality. Labwork obtained to evaluate for leukocytosis, anemia, and electrolyte derangement. Urinalysis obtained to evaluate for infection/hematuria. History & Record Review Discussion w/independent historian: Patient Additional record(s) reviewed:: Prior inpatient record, Prior outpatient record, Prior ED visit and Prior labs Lab Data Attestation: I reviewed the patient's lab results. Labs: Laboratory Results - last 24 hr 04/29/23 04/29/23 04/29/23 17:25 17:52 19:18 WBC 8.6 RBC 4.00 L Hgb 12.3 Hct 39.1 MCV 97.8 MCH 30.8 MCHC 31.5 L RDW Std Deviation 58.8 H RDW Coeff of Jah 16.6 H Plt Count 117 L MPV 11.1 Immature Gran % (Auto) 0.500 Neut % (Auto) 72.4 H Lymph % (Auto) 10.0 L Coffee % (Auto) 14.8 H Eos % (Auto) 2.1 Baso % (Auto) 0.2 Absolute Neuts (auto) 6.2 Absolute Lymphs (auto) 0.86 Nucleated RBC % 0 Platelet Estimate SLT DEC Plt Morphology Comment LARGE RBC Morphology N CHROM Anisocytosis RARE Macrocytosis RARE Sodium 137 Potassium 4.3 Chloride 104 Carbon Dioxide 24.0 Anion Gap 9 BUN 47 H Creatinine 2.24 H Estim Creat Clear Calc 19.16 Est GFR (MDRD) Af Amer 30 L Est GFR (MDRD) Non-Af 25 L BUN/Creatinine Ratio 21.0 H Glucose 120 H Calcium 9.4 Total Bilirubin 2.10 H Direct Bilirubin 1.04 H AST 49 H ALT 21 Alkaline Phosphatase 152 H Troponin I High Sens 67 H 71 H B-Natriuretic Peptide 1190.2 H Total Protein 8.1 Albumin 3.3 Globulin 4.8 H Urine Color Yellow Urine Clarity Cloudy Urine pH 6.0 Ur Specific [place] 1.020 Urine Protein 100 H Urine Glucose (UA) 100 H Urine Ketones 5 H Urine Occult Blood 250 H Urine Nitrite Positive H Urine Bilirubin Negative Urine Urobilinogen Normal Ur Leukocyte Esterase 500 H Urine RBC 10-25 SEEN Urine WBC >100 SEEN Ur Squamous Epith Cells 0 SEEN Urine Bacteria 2+ Urine Mucus 0 SEEN Radiography Chest X-Ray - ED: 1 View, Read by ED Physician and Chronic Changes Diagnostic Testing: Clinical Impression(s) from Imaging Studies Chest X-Ray 04/29/23 17:46 IMPRESSION: No radiographic evidence of acute cardiopulmonary disease. Electronically Signed: Abiodun DO Alex at 18:06 EDT Reading Location ID and State: [facility] / [place] Tel [phone], Service support , EKG Initial EKG: Attestation: I personally reviewed and interpreted this EKG as follows: Interpretation: Sinus Rhythm (Sinus at 76. Patient has chronic ST elevation in anterior precordial leads present on several prior EKGs. These findings are noted today but not as significant as in her most recent EKGs.) Treatment and Re-Evaluation :: CBC was normal white count 8.6 with a hemoglobin of 12.3. No left shift noted. Platelet count is low at 117. Chemistry studies significant for BUN of 47 and a creatinine of 2.24. Patient feels that her baseline creatinine is around 2.07. Her creatinine today is actually slightly improved compared to our most recent labs from March. LFTs reveal total bilirubin of 2.1 and a direct bilirubin of 1.04. AST is 49. Alk phos is 152. BNP is elevated at 1190. It was 1600 in March. Chest x-ray per my interpretation reveals no acute findings. No significant evidence of fluid overload. Radiology interpretation reviewed and agrees. EKG does reveal ST elevation in the anterior precordial leads. When I compare this to her last 2 EKGs these changes were noted at that time as well and actually more prominent on her previous studies. Patient is adamant that she does not have any chest pain. Patient's initial troponin is slightly elevated at 67. Repeat troponin is not significantly changed at 71. Patient's urine is obviously infected with 2+ bacteria and greater than 100 white cells. Positive nitrites are noted. Urine culture has been sent. She was given a dose of IV Rocephin here along with a dose of IV Lasix. Her physician already sent a prescription for her UTI to the pharmacy and it was supposed to be delivered to her home today. At this time patient be discharged home to continue her full antibiotic course. She will monitor her weights and urine output. Return instructions given. Discharge Plan Triage Chief Complaint: Shortness of Breath ED Provider: Jovanna Gaytan Dx/Rx/DC Orders Clinical Impression: UTI (urinary tract infection), CHF (congestive heart failure) Instructions: ED Heart Failure, Congestive (CHF), ED Cystitis Female Adult Prescriptions: No Action ipratropium bromide 42 mcg (0.06 %) spray,non-aerosol 1 spray INTRANASAL BID (DME) blood sugar diagnostic Strip See Rx Instructions .ROUTE .MEDSUPPLY Qty: 10 Patient Comments: use 1 TEST STRIP to TEST BLOOD SUGAR daily Rx Instructions: As directed (DME) lancets 33 gauge misc See Rx Instructions .ROUTE .MEDSUPPLY Qty: 100 Patient Comments: use 1 LANCET to TEST BLOOD SUGAR daily Rx Instructions: As directed pregabalin 150 mg capsule 150 mg PO BID carvedilol 25 mg tablet 25 mg PO BID hydralazine 25 mg tablet 25 mg PO 4X/DAY PRN (Reason: Hypertension) oxycodone 5 mg tablet 5 mg PO DAILY PRN PRN (Reason: Pain) acetaminophen 500 mg tablet 500 mg PO Q6H PRN (Reason: pain/fever) mirtazapine 15 mg tablet 30 mg PO QHS desvenlafaxine succinate 100 mg tablet extended release 24 hr 100 mg PO Jublia 10 % solution with applicator 1 applic topical DAILY cevimeline [Evoxac] 30 mg capsule 1 cap PO TID mycophenolate mofetil [CellCept] 250 mg capsule 500 mg PO BID bumetanide 1 mg tablet 1 mg PO Q12H cefdinir 300 mg capsule PO Acidophilus Capsule 10 mg PO DAILY clindamycin-benzoyl peroxide 1.2 %(1 % base) -5 % gel topical (DME) lancets [OneTouch Delica Lancets] 33 gauge misc See Rx Instructions .ROUTE .MEDSUPPLY Rx Instructions: 4x/day hydroxychloroquine 200 mg tablet 200 mg PO DAILY Patient Comments: lupus prednisone 5 mg tablet 5 mg PO DAILY levocetirizine 5 MG tablet 5 mg PO DAILY ketoconazole 2 % Shampoo 1 applic TOPICAL DAILY cyclosporine 25 mg capsule 75 mg PO BID alpha lipoic acid 600 mg Capsule 600 mg PO BID Sunosi 150 mg Tablet 150 mg PO DAILY (DME) OneTouch Verio test strips Strip See Rx Instructions .ROUTE .MEDSUPPLY Qty: 360 3RF Rx Instructions: As directed up to 4x daily to monitor glucose levels (DME) Dexcom G6 Sand Buffer Misc See Rx Instructions .Route Qty: 1 0RF Rx Instructions: As directed (DME) pen needle, diabetic [BD Ultra-Fine Mini Pen Needle] 31 gauge x 3/16 needle See Rx Instructions .ROUTE .MEDSUPPLY Qty: 100 3RF Rx Instructions: 3x/day Januvia 50 mg tablet 50 mg PO DAILY Qty: 90 1RF (DME) Dexcom G6 Sensor Device See Rx Instructions .Route Qty: 3 3RF Rx Instructions: 1 sensor q 10 days insulin lispro [Humalog U-100 Insulin] 100 unit/mL solution 100 unit subcut DAILY Qty: 90 1RF Rx Instructions: via pump Farxiga 5 mg tablet 5 mg PO DAILY Qty: 90 1RF (DME) Dexcom G6 Transmitter Device See Rx Instructions .Route Qty: 1 1RF Rx Instructions: 1 q 90 days (DME) Omnipod 5 G6 Pods (Gen 5) Cartridge See Rx Instructions .Route Qty: 45 1RF Rx Instructions: 1 pod q 48 hours Primary Care Provider: Mitchell Bowen Chi Referrals: Mitchell Bowen Chi, MD [Primary Care Provider] - 3-5 Days Activity Restrictions/Additional Instructions: Please be sure you take the antibiotics that your doctor sent to the pharmacy for you. You have been given an extra shot of Lasix tonight to help with fluid removal. Please continue your diuretics at home and follow-up for repeat renal function testing. Disposition Disposition: Home, Self Care Discharge Date/Time: 04/29/23 23:11
[2023-04-29 17:42] LABS: Absolute Lymphocyte Count 0.86 X10^3/uL (0.83-4.51); Absolute Neutrophil Count 6.2 X10^3/uL (2.0-7.7); Basophil# 0.02 X10^3/uL; Basophil% 0.2 % (0-1); Eosinophil# 0.18 X10^3/uL; Eosinophils% 2.1 % (0-5); Hematocrit 39.1 % (37-47); Hemoglobin 12.3 g/dL (12.0-15.0); Lymphocyte # 0.86 X10^3/ul (0.83-4.51); Mean Corp Hgb Conc 31.5 g/dL (32-36); Mean Corpuscular Hgb 30.8 pg (27.0-32.0); Mean Corpuscular Volume 97.8 fL (81-99); Mean Platelet Vol. 11.1 fl (6.2-12.0); Monocyte# 1.28 X10^3/uL; Monocyte% 14.8 % (0-10); NRBC Flagged by Analyzer 0 % (0-5); Neutrophil # 6.24 X10^3/uL (2.7-7.7); Neutrophil % 72.4 % (47-70); POSITIVE COUNT YES; Platelet Count 117 K/mm3 (150-450); RBC Distribution Width CV 16.6 % (11.6-14.6); RBC Distribution Width SD 58.8 fl (35.1-43.9); White Blood Count 8.6 K/mm3 (4.4-11.0)
--- NOTE | 2023-04-29 17:46 | RAD_ITS ---
INDICATION: sob EXAMINATION/TECHNIQUE: X-RAY - XR Chest 1 View COMPARISON: May 12 2021 FINDINGS: LINES/DEVICES: None. LUNGS: No consolidation, edema or effusion. There is a surgical clip over the left upper lobe. No pneumothorax. MEDIASTINUM AND CARDIOVASCULAR STRUCTURES: Cardiac silhouette not enlarged. Central airways and mediastinal contour are unremarkable. BONES AND SOFT TISSUES: Unremarkable. RAD/Chest 1 View (Portable) IMPRESSION: No radiographic evidence of acute cardiopulmonary disease. Electronically Signed: Abiodun Johnson DO at 18:06 EDT ,
[2023-04-29 18:02] LABS: Mucous, Urine 0 SEEN /hpf (<or=2+); Squamous Epithelial Cells - UA 0 SEEN /hpf (5-10)
[2023-04-29 18:05] LABS: AST(SGOT) 49 U/L (15-37); Alanine Aminotransfer ALT/SGPT 21 U/L (13-56); Albumin, Serum 3.3 g/dL (3.2-5.0); Alkaline Phosphatase 152 U/L (45-117); Anion Gap 9 (5-15); BUN 47 mg/dL (7-18); Bilirubin, Direct 1.04 mg/dL (0.00-0.30); Calcium,Total 9.4 mg/dL (8.5-10.1); Chloride 104 mmol/L (98-107); Creatinine, Serum 2.24 mg/dL (0.55-1.02); Differential Indicated SCAN CRITERIA MET; EST Glomerular Filtration Rate 25 mL/min (>60); Est Glom Filt Rate - Afr Amer 30 mL/min (>60); Estimated Creatinine Clearance 19.16 ml/min; Globulin 4.8 g/dL (2.2-4.2); Glucose 120 mg/dL (74-106); Potassium 4.3 mmol/L (3.5-5.1); Protein, Total 8.1 g/dL (6.4-8.2); Sodium Level 137 mmol/L (136-145); Troponin-I HS 67 pg/mL (3.0-54.0)
[2023-04-29 18:07] LABS: Anisocytosis RARE; Macrocytosis RARE; Platelet Estimate SLT DEC (ADEQ); Platelet Morphology LARGE; Red Cell Morphology N CHROM NORMAL (NORM C&C)
[2023-04-29 18:17] LABS: Color, Urine Yellow (Yellow); Glucose, Dipstick 100 mg/dl (Normal); Ketone-Dipstick 5 mg/dl (Negative); Leukocyte Esterase-Dipstick 500 /ul (Negative); Nitrite-Dipstick Positive (Negative); Occult Blood-Urine 250 /ul (Negative); Protein-Dipstick 100 mg/dl (Negative); Urine Bilirubin Dipstick Negative (Negative); Urine Clarity Cloudy (Clear); Urine Urobilinogen Normal (Normal)
[2023-04-29 18:32] LABS: Bacteria 2+ /hpf (None Seen); Red Blood Cells-Urine 10-25 SEEN /hpf (0-5); White Blood Cells >100 SEEN /hpf (0-5)
[2023-04-29 18:52] VITALS: BP 119/96; PULSE 75; RESP 15; O2SAT 98
[2023-04-29 19:47] LABS: Troponin-I HS 71 pg/mL (3.0-54.0)
[2023-04-29 20:39] VITALS: BP 138/95; PULSE 79; RESP 16; O2SAT 97
[2023-04-29 21:01] LABS: BNP,B-Type NATRIURETIC PEPTIDE 1190.2 pg/mL (0-100)
[2023-04-29] MEDS: Furosemide 40 MG/4 ML Vial IV (22:08)
[2023-04-29] MEDS: Ceftriaxone 1 GM/50 ML BAG IV (22:19)
[2023-04-29 23:09] VITALS: BP 159/101; PULSE 72; RESP 18; O2SAT 95
== END 2023-04-29 23:11 | disposition home or self-care (01) ==
PROVIDERS: Emergency Provider Emergency Medicine; PCP Family Medicine Geriatric Medicine; Visit Provider Emergency Medicine
DX: I11.0 Hypertensive heart disease with heart failure (principal); M32.14 Glomerular disease in systemic lupus erythematosus; I50.9 Heart failure, unspecified; Z79.4 Long term (current) use of insulin; G47.33 Obstructive sleep apnea (adult) (pediatric); N39.0 Urinary tract infection, site not specified; Z87.891 Personal history of nicotine dependence; Z79.899 Other long term (current) drug therapy; Z94.0 Kidney transplant status; Z96.643 Presence of artificial hip joint, bilateral
CPT/HCPCS: 71045; 80048; 80076; 81001; 83880; 84484; 85025; 87077; 87086; 87088; 87186; 93005; 96365; 96375; 99284; A4216; J1940

== ENCOUNTER → 2023-05-06 | Outpatient (CLI) | payer MEDICARE, MEDICAID, SELFPAY ==
[2023-05-06 17:05] LABS: Anion Gap 7 (5-15); BUN 22 mg/dL (7-18); BUN/Creat Ratio 15.3 RATIO (10-20); Calcium,Total 9.3 mg/dL (8.5-10.1); Chloride 110 mmol/L (98-107); Creatinine, Serum 1.44 mg/dL (0.55-1.02); EST Glomerular Filtration Rate 41 mL/min (>60); Est Glom Filt Rate - Afr Amer 49 mL/min (>60); Glucose 109 mg/dL (74-106); Potassium 3.9 mmol/L (3.5-5.1); Sodium Level 136 mmol/L (136-145)
== END | disposition home or self-care (01) ==
LOC: POLAB3 16:17
PROVIDERS: PCP Family Medicine Geriatric Medicine; Visit Provider Family Medicine Geriatric Medicine
DX: N18.32 Chronic kidney disease, stage 3b (principal)
CPT/HCPCS: 36415; 80048

== ENCOUNTER → 2023-06-08 | Outpatient (CLI) | payer MEDICARE, MEDICAID, SELFPAY | END | disposition home or self-care (01) | LOC: POLAB3 14:33 | PROVIDERS: PCP Family Medicine Geriatric Medicine; Visit Provider Family Medicine Geriatric Medicine | DX: E11.65 Type 2 diabetes mellitus with hyperglycemia (principal); N39.0 Urinary tract infection, site not specified | CPT/HCPCS: 87077; 87086; 87088; 87186 ==

== ENCOUNTER → 2023-06-09 | Outpatient (CLI) | payer MEDICARE, MEDICAID, SELFPAY | END | disposition home or self-care (01) | LOC: PSN 12:19 | PROVIDERS: PCP Family Medicine Geriatric Medicine; Referring Provider Family Medicine Geriatric Medicine; Visit Provider Family Medicine Geriatric Medicine | DX: R68.83 Chills (without fever) (principal) | CPT/HCPCS: 87635; 87804; 87807; C9803 ==

== ENCOUNTER → 2023-08-10 | Outpatient (CLI) | payer MEDICARE, MEDICAID, SELFPAY ==
[2023-08-10 17:26] LABS: Absolute Lymphocyte Count 1.23 X10^3/uL (0.83-4.51); Absolute Neutrophil Count 5.2 X10^3/uL (2.0-7.7); Basophil# 0.03 X10^3/uL; Basophil% 0.4 % (0-1); Eosinophil# 0.13 X10^3/uL; Eosinophils% 1.8 % (0-5); Hematocrit 40.2 % (37-47); Hemoglobin 12.1 g/dL (12.0-15.0); Lymphocyte # 1.23 X10^3/ul (0.83-4.51); Lymphocyte % 17.3 % (19-41); Mean Corp Hgb Conc 30.1 g/dL (32-36); Mean Corpuscular Hgb 29.3 pg (27.0-32.0); Mean Corpuscular Volume 97.3 fL (81-99); Mean Platelet Vol. 10.5 fl (6.2-12.0); Monocyte# 0.51 X10^3/uL; Monocyte% 7.2 % (0-10); NRBC Flagged by Analyzer 0 % (0-5); Neutrophil # 5.19 X10^3/uL (2.7-7.7); Neutrophil % 72.9 % (47-70); Platelet Count 153 K/mm3 (150-450); RBC Distribution Width CV 17.6 % (11.6-14.6); Red Blood Count 4.13 M/mm3 (4.2-5.4); White Blood Count 7.1 K/mm3 (4.4-11.0)
[2023-08-10 17:48] LABS: Hemoglobin A1c 5.8 % (3.8-5.6)
[2023-08-10 17:49] LABS: ALB/GLOB Ratio 0.7 RATIO (0.9-2.4); AST(SGOT) 18 U/L (15-37); Alanine Aminotransfer ALT/SGPT 9 U/L (13-56); Alkaline Phosphatase 152 U/L (45-117); Anion Gap 4 (5-15); BUN 36 mg/dL (7-18); BUN/Creat Ratio 16.3 RATIO (10-20); Calcium,Total 9.1 mg/dL (8.5-10.1); Chloride 110 mmol/L (98-107); Cholesterol 111 mg/dL (200); Creatinine, Serum 2.21 mg/dL (0.55-1.02); EST Glomerular Filtration Rate 25 mL/min (>60); Est Glom Filt Rate - Afr Amer 30 mL/min (>60); Globulin 4.4 g/dL (2.2-4.2); Glucose 99 mg/dL (74-106); High Density Lipoprotein 51 mg/dL; Potassium 4.3 mmol/L (3.5-5.1); Protein, Total 7.4 g/dL (6.4-8.2); Sodium Level 140 mmol/L (136-145); Thyroid Stim Hormone (TSH) 4.28 uIU/mL (0.358-3.74); Triglycerides 106 mg/dL; Very Low Density Lipoprotein 21 mg/dL (5-40)
== END | disposition home or self-care (01) ==
LOC: POLAB3 17:01
PROVIDERS: PCP Family Medicine Geriatric Medicine; Visit Provider Family Medicine Geriatric Medicine
DX: E11.65 Type 2 diabetes mellitus with hyperglycemia (principal); I10 Essential (primary) hypertension
CPT/HCPCS: 36415; 80053; 80061; 83036; 84443; 85025

== ENCOUNTER → 2023-08-13 | Outpatient (CLI) | payer MEDICARE, MEDICAID, SELFPAY ==
--- NOTE | 2023-08-13 | FLU_PTH ---
PATIENT: PAVITHRA PAINTER LOC: U#:[id number] AGE/SX: 52/F ROOM: RE08/13/[address]: Dr. Mitchell Bowen MD : 1970 BED: DIS: 08/13/2023 SPEC #: [id number] RECD: 08/13/23 10:48 STATUS: COLLEEN LUCAS #: [id number] ISAIAH: 08/13/23 00:[address]: Mitchell Bowen [facility] DEPT: CYTOLOGY RECD BY: Chadd Ashby Tissues: PARACENTESIS FLUID Procedures: Special Stain Group II Surgery Specimen Level IV Cytospin Fluid HEADER OPERATION: Ultrasound-guided right paracentesis PRE-OP DIAGNOSIS: Ascites TISSUE SUBMITTED: Paracentesis fluid for cytology DIAGNOSIS CYTOLOGY Paracentesis fluid for cytology (cytospin and cell block): Negative for malignant cells. See comment. RANJITH:carly 08/16/2023 COMMENT Clinical correlation and appropriate follow up are necessary. CYTOLOGY STUDY Slides are reviewed. CYTOLOGY GROSS Received is 90 ml of reddish-orange cloudy fluid labeled with the patient's name and and designated per the requisition as paracentesis. Submitted for cytology preparation including cell block. / carly 08/13/2023 TC:5 CPT: 22565, 78522
[2023-08-13] MEDS: Lidocaine 2% (20 ml mdv) 20 ML Vial INFILT (08:08)
[2023-08-13 08:26] VITALS: BP 122/84; BP 129/77; BP 135/86; BP 139/83; PULSE 67; PULSE 68; PULSE 69; PULSE 70; RESP 16; TEMP 36.4; O2SAT 96; O2SAT 97
--- NOTE | 2023-08-13 12:15 | PRO.PCM_ITS ---
Procedure Report Date of Procedure: 08/13/23 Assessment & Plan Assessment/Plan (1) Ascites: QUALIFIERS: Ascites type: other type Qualified Code(s): R18.8 - Other ascites PLAN: PROCEDURE: Ultrasound guided paracentesis ORDERING PROVIDER: Dr. Bowen INDICATION: Female, 52 years old. Ascites. PROVIDER: YAMIL Lock TECHNIQUE: The risks, benefits, and alternatives to the procedure were explained to the patient. The specific risks of bleeding, infection, and damage to bowel were detailed and accepted. Witnessed informed consent was obtained. The abdomen was ultrasonographically surveyed. An appropriate pocket of fluid was identified in the right lower quadrant. The skin was prepped with Betadine swabs and sterile field established. 2% lidocaine was used for local anesthetic. Aspiration while anesthetizing the insertion track revealed the return of clear yellow ascitic fluid. Using ultrasound guidance, the peritoneal cavity was accessed with a 5-Citizen Of [place] paracentesis needle/catheter system. The trocar was removed. A total of 3600 ml of clear red to clear yellow colored fluid was removed from the peritoneal cavity. 100 mL of this fluid was collected and sent to the laboratory for analysis, as per requesting physician. The catheter was removed and a sterile dressing was applied. The procedure was well tolerated. IMPRESSION: Successful ultrasound-guided paracentesis with right lower quadrant access site. Procedures Radiology Radiology US Procedures: [id number] Thoracentesis
[2023-08-19 13:07] LABS: Albumin, Body Fluid 1.7 g/dL (Not Estab.); Amylase Body Fluid 13 U/L (.)
== END | disposition home or self-care (01) ==
PROVIDERS: PCP Family Medicine Geriatric Medicine; Referring Provider Family Medicine Geriatric Medicine; Visit Provider Family Medicine Geriatric Medicine
DX: R18.8 Other ascites (principal)
CPT/HCPCS: 49083; 82042; 82150; 82945; 84157; 87205; 88108; 88305; 88313

== ENCOUNTER 2023-08-31 12:21 | Outpatient (RCR) | payer MEDICARE, MEDICAID, SELFPAY | END 2023-08-31 19:00 | disposition home or self-care (01) | LOC: PT 12:21 | PROVIDERS: PCP Family Medicine Geriatric Medicine; Visit Provider Urology | DX: N39.41 Urge incontinence (principal) ==

== ENCOUNTER → 2023-09-02 | Outpatient (CLI) | payer MEDICARE, MEDICAID, SELFPAY ==
--- NOTE | 2023-09-02 07:52 | PCM.OP.PRO ---
Procedure Report Date of Procedure: 09/02/23 Assessment & Plan Assessment/Plan (1) Ascites: QUALIFIERS: Ascites type: other type Qualified Code(s): R18.8 - Other ascites PLAN: Plan PROCEDURE: Ultrasound guided paracentesis ORDERING PROVIDER: Dr. Lopez INDICATION: Female, 53 years old. Ascites. PROVIDER: YAMLI Lock TECHNIQUE: The risks, benefits, and alternatives to the procedure were explained to the patient. The specific risks of bleeding, infection, and damage to bowel were detailed and accepted. Witnessed informed consent was obtained. The abdomen was ultrasonographically surveyed. An appropriate pocket of fluid was identified in the right lower quadrant. The skin was prepped with Betadine swabs and sterile field established. 2% lidocaine was used for local anesthetic. Using ultrasound guidance, the peritoneal cavity was accessed with a 5-Kittitian paracentesis needle/catheter system. The trocar was removed. A total of 3850 ml of clear yellow colored fluid was removed from the peritoneal cavity. The catheter was removed and a sterile dressing was applied. The procedure was well tolerated. IMPRESSION: Successful ultrasound-guided paracentesis with right lower quadrant access site. Procedures Radiology Radiology US Procedures: [id number] Paracentesis
[2023-09-02 08:10] VITALS: BP 108/69; PULSE 69; RESP 18; TEMP 36.2; O2SAT 96
[2023-09-02] MEDS: Lidocaine 2% (20 ml mdv) 20 ML Vial INFILT (08:17)
[2023-09-02 08:20] VITALS: BP 117/72; PULSE 67; RESP 18; O2SAT 96
[2023-09-02 08:30] VITALS: BP 123/71; PULSE 67; RESP 18; O2SAT 94
[2023-09-02 08:34] VITALS: BP 100/64; PULSE 67; RESP 18; TEMP 36.3; O2SAT 95
== END | disposition home or self-care (01) ==
PROVIDERS: PCP Family Medicine Geriatric Medicine; Referring Provider Internal Medicine Gastroenterology; Visit Provider Internal Medicine Gastroenterology
DX: R18.8 Other ascites (principal)
CPT/HCPCS: 49083

== ENCOUNTER → 2023-09-03 | Outpatient (CLI) | payer MEDICARE, MEDICAID, SELFPAY | END | disposition home or self-care (01) | LOC: LABSPEC 15:11 | PROVIDERS: PCP Family Medicine Geriatric Medicine; Referring Provider Physician Assistant Surgical; Visit Provider Physician Assistant Surgical | DX: N39.0 Urinary tract infection, site not specified (principal) | CPT/HCPCS: 87077; 87086; 87088; 87186 ==

== ENCOUNTER → 2023-09-14 | Outpatient (CLI) | payer MEDICARE, MEDICAID, SELFPAY ==
[2023-09-14 09:49] VITALS: BP 112/68; PULSE 74; RESP 18; O2SAT 97
[2023-09-14] MEDS: Lidocaine 2% (20 ml mdv) 20 ML Vial INFILT (09:52)
[2023-09-14 10:02] VITALS: BP 116/76; PULSE 72; RESP 18; O2SAT 97
[2023-09-14 10:15] VITALS: BP 103/63; PULSE 72; RESP 18; O2SAT 97
--- NOTE | 2023-09-14 11:02 | PRO.PCM_ITS ---
Procedure Report Date of Procedure: 09/14/23 Assessment & Plan Assessment/Plan (1) Ascites: QUALIFIERS: Ascites type: other type Qualified Code(s): R18.8 - Other ascites PLAN: PROCEDURE: Ultrasound guided paracentesis ORDERING PROVIDER: Dr. Bowen INDICATION: [ ], [ ] years old. [ ]. PROVIDER: [facility] TECHNIQUE: The risks, benefits, and alternatives to the procedure were explained to the [ ]. The specific risks of bleeding, infection, and damage to bowel were detailed and accepted. Witnessed informed consent was obtained. The abdomen was ultrasonographically surveyed. An appropriate pocket of fluid was identified in the [ ]. The skin was prepped with chlorhexidine and sterile field established. [ ]% lidocaine was used for local anesthetic. Using ultrasound guidance, the peritoneal cavity was accessed with a [ ]-Martiniquais paracentesis needle/catheter system. The trocar was removed. A total of [ ]ml of [ ] colored fluid was removed from the peritoneal cavity. The catheter was removed and a sterile dressing was applied. The procedure was well tolerated. IMPRESSION: [ ]
--- NOTE | 2023-09-14 11:02 | PCM.OP.PRO ---
Procedure Report Date of Procedure: 09/14/23 Assessment & Plan Assessment/Plan (1) Ascites: QUALIFIERS: Ascites type: other type Qualified Code(s): R18.8 - Other ascites PLAN: PROCEDURE: Ultrasound guided paracentesis ORDERING PROVIDER: Dr. Bowen INDICATION: Female, 53 years old. Ascites. PROVIDER: YAMIL Lock TECHNIQUE: The risks, benefits, and alternatives to the procedure were explained to the patient. The specific risks of bleeding, infection, and damage to bowel were detailed and accepted. Witnessed informed consent was obtained. The abdomen was ultrasonographically surveyed. An appropriate pocket of fluid was identified in the right lower quadrant. The skin was prepped with chlorhexidine and sterile field established. 2% lidocaine was used for local anesthetic. Using ultrasound guidance, the peritoneal cavity was accessed with a 5-Portuguese paracentesis needle/catheter system. The trocar was removed. A total of 4000 ml of clear yellow colored fluid was removed from the peritoneal cavity. The catheter was removed and a sterile dressing was applied. The procedure was well tolerated. IMPRESSION: Successful ultrasound-guided paracentesis with right lower quadrant access site. Procedures Radiology Radiology US Procedures: [id number] Paracentesis
== END | disposition home or self-care (01) ==
PROVIDERS: PCP Family Medicine Geriatric Medicine; Referring Provider Family Medicine Geriatric Medicine; Visit Provider Family Medicine Geriatric Medicine
DX: R18.8 Other ascites (principal)
CPT/HCPCS: 49083

== ENCOUNTER → 2023-09-16 | Outpatient (CLI) | payer MEDICARE, MEDICAID, SELFPAY ==
--- NOTE | 2023-09-16 14:27 | RAD_ITS ---
INDICATION: PAIN EXAMINATION/TECHNIQUE: X-RAY - XR Ribs Unilateral W/ PA Chest 4 Views COMPARISON: FINDINGS: SOFT TISSUES: No soft tissue swelling or gas. BONES: There is a right seventh rib fracture. No sclerotic or destructive changes observed. VISUALIZED LUNGS: Clear. No pneumothorax. RAD/Ribs Uni Min 3V w/PA Chest IMPRESSION: Right seventh rib fracture. Electronically Signed: Abiodun Johnson DO at 17:08 EST ,
== END | disposition home or self-care (01) ==
LOC: RAD 14:25
PROVIDERS: PCP Family Medicine Geriatric Medicine; Referring Provider Family Medicine Geriatric Medicine; Visit Provider Family Medicine Geriatric Medicine
DX: R07.81 Pleurodynia (principal)
CPT/HCPCS: 71101

== ENCOUNTER → 2023-09-22 | Outpatient (CLI) | payer MEDICARE, MEDICAID, SELFPAY ==
[2023-09-22 12:13] VITALS: BP 111/68; PULSE 77; RESP 18; TEMP 37.6; O2SAT 96
[2023-09-22] MEDS: Lidocaine 2% (20 ml mdv) 20 ML Vial INFILT (12:13)
[2023-09-22 12:28] VITALS: BP 107/56; PULSE 80; RESP 18; O2SAT 96
--- NOTE | 2023-09-22 13:53 | PCM.OP.PRO ---
Procedure Report Date of Procedure: 09/22/23 Assessment & Plan Assessment/Plan (1) Ascites: QUALIFIERS: Ascites type: other type Qualified Code(s): R18.8 - Other ascites PLAN: PROCEDURE: Ultrasound guided paracentesis ORDERING PROVIDER: Dr. Bowen INDICATION: Female, 53 years old. Ascites. PROVIDER: YAMIL Lock TECHNIQUE: The risks, benefits, and alternatives to the procedure were explained to the patient. The specific risks of bleeding, infection, and damage to bowel were detailed and accepted. Witnessed informed consent was obtained. The abdomen was ultrasonographically surveyed. An appropriate pocket of fluid was identified in the right lower quadrant. The skin was prepped with chlorhexidine and sterile field established. 2% lidocaine was used for local anesthetic. Using ultrasound guidance, the peritoneal cavity was accessed with a 5-Micronesian paracentesis needle/catheter system. The trocar was removed. A total of 2450 ml of clear yellow colored fluid was removed from the peritoneal cavity. The catheter was removed and a sterile dressing was applied. The procedure was well tolerated. IMPRESSION: Successful ultrasound-guided paracentesis with right lower quadrant access site. Procedures Radiology Radiology US Procedures: [id number] Paracentesis
== END | disposition home or self-care (01) ==
LOC: US 11:49
PROVIDERS: PCP Family Medicine Geriatric Medicine; Referring Provider Family Medicine Geriatric Medicine; Visit Provider Family Medicine Geriatric Medicine
DX: R18.8 Other ascites (principal)
CPT/HCPCS: 49083

== ENCOUNTER → 2023-09-28 | Outpatient (CLI) | payer MEDICARE, MEDICAID, SELFPAY ==
[2023-09-28 10:55] VITALS: BP 127/76; PULSE 82; RESP 18; TEMP 36.8; O2SAT 96
[2023-09-28] MEDS: Lidocaine 2% (20 ml mdv) 20 ML Vial INFILT (10:58)
[2023-09-28 11:00] VITALS: BP 120/71; PULSE 75; RESP 18; O2SAT 98
--- NOTE | 2023-09-28 11:10 | PCM.OP.PRO ---
Procedure Report Date of Procedure: 09/28/23 Assessment & Plan Assessment/Plan (1) Ascites: QUALIFIERS: Ascites type: other type Qualified Code(s): R18.8 - Other ascites PLAN: PROCEDURE: Ultrasound guided paracentesis ORDERING PROVIDER: Dr. Bowen INDICATION: Female, 53 years old. Ascites. PROVIDER: YAMIL Lock TECHNIQUE: The risks, benefits, and alternatives to the procedure were explained to the patient. The specific risks of bleeding, infection, and damage to bowel were detailed and accepted. Witnessed informed consent was obtained. The abdomen was ultrasonographically surveyed. An appropriate pocket of fluid was identified in the right lower quadrant. The skin was prepped with chlorhexidine and sterile field established. 2% lidocaine was used for local anesthetic. Using ultrasound guidance, the peritoneal cavity was accessed with a 5-S[place] Lankan paracentesis needle/catheter system. The trocar was removed. A total of 1900 ml of clear yellow colored fluid was removed from the peritoneal cavity. The catheter was removed and a sterile dressing was applied. The procedure was well tolerated. IMPRESSION: Successful ultrasound-guided paracentesis with right lower quadrant access site. Procedures Radiology Radiology US Procedures: [id number] Paracentesis
[2023-09-28 11:15] VITALS: BP 106/67; PULSE 78; RESP 18; O2SAT 96
[2023-09-28 11:20] VITALS: BP 115/58; PULSE 76; RESP 18; O2SAT 96
== END | disposition home or self-care (01) ==
PROVIDERS: PCP Family Medicine Geriatric Medicine; Referring Provider Family Medicine Geriatric Medicine; Visit Provider Family Medicine Geriatric Medicine
DX: R18.8 Other ascites (principal)
CPT/HCPCS: 49083

== ENCOUNTER → 2023-10-05 | Outpatient (CLI) | payer MEDICARE, MEDICAID, SELFPAY ==
[2023-10-05 10:45] VITALS: BP 135/79; PULSE 70; RESP 18; TEMP 36.3; O2SAT 97
[2023-10-05] MEDS: Lidocaine 2% (20 ml mdv) 20 ML Vial INFILT (10:50)
[2023-10-05 11:00] VITALS: BP 127/76; PULSE 69; RESP 18; O2SAT 96
[2023-10-05 11:10] VITALS: BP 126/76; PULSE 69; RESP 18; O2SAT 97
--- NOTE | 2023-10-05 13:57 | PCM.OP.PRO ---
Procedure Report Date of Procedure: 10/05/23 Assessment & Plan Assessment/Plan (1) Ascites: QUALIFIERS: Ascites type: other type Qualified Code(s): R18.8 - Other ascites PLAN: PROCEDURE: Ultrasound guided paracentesis ORDERING PROVIDER: Dr. Bowen INDICATION: Female, 53 years old. Ascites. PROVIDER: YAMIL Lock TECHNIQUE: The risks, benefits, and alternatives to the procedure were explained to the patient. The specific risks of bleeding, infection, and damage to bowel were detailed and accepted. Witnessed informed consent was obtained. The abdomen was ultrasonographically surveyed. An appropriate pocket of fluid was identified in the right lower quadrant. The skin was prepped with chlorhexidine and sterile field established. 2% lidocaine was used for local anesthetic. Using ultrasound guidance, the peritoneal cavity was accessed with a 5-Belarusian paracentesis needle/catheter system. The trocar was removed. A total of 1950 ml of clear thu colored fluid was removed from the peritoneal cavity. The catheter was removed and a sterile dressing was applied. The procedure was well tolerated. IMPRESSION: Successful ultrasound-guided paracentesis with right lower quadrant access site. Procedures Radiology Radiology US Procedures: [id number] Paracentesis
== END | disposition home or self-care (01) ==
LOC: US 10:36
PROVIDERS: PCP Family Medicine Geriatric Medicine; Referring Provider Family Medicine Geriatric Medicine; Visit Provider Family Medicine Geriatric Medicine
DX: R18.8 Other ascites (principal)
CPT/HCPCS: 49083

== ENCOUNTER → 2023-10-14 | Outpatient (CLI) | payer MEDICARE, MEDICAID, SELFPAY ==
[2023-10-14] MEDS: Lidocaine 2% (20 ml mdv) 20 ML Vial INFILT (11:00)
[2023-10-14 11:20] VITALS: BP 117/75; PULSE 67; RESP 18; O2SAT 98
[2023-10-14 11:22] VITALS: BP 115/84; BP 119/75; PULSE 76; RESP 18; O2SAT 97; O2SAT 98
--- NOTE | 2023-10-14 12:48 | PCM.OP.PRO ---
Procedure Report Date of Procedure: 10/14/23 Assessment & Plan Assessment/Plan (1) Ascites: QUALIFIERS: Ascites type: other type Qualified Code(s): R18.8 - Other ascites PLAN: PROCEDURE: Ultrasound guided paracentesis ORDERING PROVIDER: Dr. Bowen INDICATION: Female, 53 years old. Ascites. PROVIDER: YAMIL Lock TECHNIQUE: The risks, benefits, and alternatives to the procedure were explained to the patient. The specific risks of bleeding, infection, and damage to bowel were detailed and accepted. Witnessed informed consent was obtained. The abdomen was ultrasonographically surveyed. An appropriate pocket of fluid was identified in the right lower quadrant. The skin was prepped with chlorhexidine and sterile field established. 2% lidocaine was used for local anesthetic. Using ultrasound guidance, the peritoneal cavity was accessed with a 5-Irish paracentesis needle/catheter system. The trocar was removed. A total of 1200 ml of cloudy dark yellow colored fluid was removed from the peritoneal cavity. The catheter was removed and a sterile dressing was applied. The procedure was well tolerated. IMPRESSION: Successful ultrasound-guided paracentesis with right lower quadrant access site. Procedures Radiology Radiology US Procedures: [id number] Paracentesis
== END | disposition home or self-care (01) ==
PROVIDERS: PCP Family Medicine Geriatric Medicine; Referring Provider Family Medicine Geriatric Medicine; Visit Provider Family Medicine Geriatric Medicine
DX: R18.8 Other ascites (principal)
CPT/HCPCS: 49083

== ENCOUNTER → 2023-10-22 | Outpatient (CLI) | payer MEDICARE, MEDICAID, SELFPAY ==
[2023-10-22 13:43] VITALS: BP 113/67; PULSE 71; RESP 18; TEMP 36.6; O2SAT 100
[2023-10-22] MEDS: Lidocaine 2% (20 ml mdv) 20 ML Vial INFILT (13:54)
[2023-10-22 13:58] VITALS: BP 108/58; PULSE 68; RESP 18; O2SAT 100
[2023-10-22 14:13] VITALS: BP 95/63; PULSE 69; RESP 18; O2SAT 98
--- NOTE | 2023-10-22 15:12 | PCM.OP.PRO ---
Procedure Report Date of Procedure: 10/22/23 Assessment & Plan Assessment/Plan (1) Ascites: QUALIFIERS: Ascites type: other type Qualified Code(s): R18.8 - Other ascites PLAN: PROCEDURE: Ultrasound guided paracentesis ORDERING PROVIDER: Dr. Bowen INDICATION: Female, 53 years old. Ascites. PROVIDER: YAMIL Lock TECHNIQUE: The risks, benefits, and alternatives to the procedure were explained to the patient. The specific risks of bleeding, infection, and damage to bowel were detailed and accepted. Witnessed informed consent was obtained. The abdomen was ultrasonographically surveyed. An appropriate pocket of fluid was identified in the right lower quadrant. The skin was prepped with chlorhexidine and sterile field established. 2% lidocaine was used for local anesthetic. Using ultrasound guidance, the peritoneal cavity was accessed with a 5-Lithuanian paracentesis needle/catheter system. The trocar was removed. A total of 2800 ml of dark yellow colored fluid was removed from the peritoneal cavity. The catheter was removed and a sterile dressing was applied. The procedure was well tolerated. IMPRESSION: Successful ultrasound-guided paracentesis with right lower quadrant access site. Procedures Radiology Radiology US Procedures: [id number] Paracentesis
== END | disposition home or self-care (01) ==
LOC: US 13:36
PROVIDERS: PCP Family Medicine Geriatric Medicine; Visit Provider Family Medicine Geriatric Medicine
DX: R18.8 Other ascites (principal)
CPT/HCPCS: 49083

== ENCOUNTER 2023-10-26 12:58 | Outpatient (RCR) | payer MEDICARE, MEDICAID, SELFPAY | END 2023-10-26 19:00 | disposition home or self-care (01) | LOC: PT 12:58 | PROVIDERS: PCP Family Medicine Geriatric Medicine | DX: I36.1 Nonrheumatic tricuspid (valve) insufficiency (principal) ==

== ENCOUNTER 2023-11-01 06:15 | Day surgery (SDC) | payer MEDICARE, MEDICAID, SELFPAY ==
[2023-11-01 06:48] VITALS: BP 96/70; PULSE 78; RESP 18; TEMP 36.2; O2SAT 97; BMI 32.5
[2023-11-01] MEDS: Lactated Ringers 1,000 ML 15 ML IV (06:48)
[2023-11-01 07:11] LABS: Bedside Glucose 79 mg/dL (74-106)
--- NOTE | 2023-11-01 07:34 | RAD_ITS ---
PROCEDURE: Caudal epidural. DATE OF EXAMINATION: November 01, 2023. INDICATION: Female, 53 years old. Low back pain. FLUOROSCOPY TIME (if supplied): (7 seconds) minutes/seconds. 5.22 mGy. One fluoroscopic image submitted. RAD/Fluor Guidance for Spine Inj IMPRESSION: Intraoperative imaging provided for caudal epidural. Electronically Signed: Jonathan Garcia MD at 10:51 EST ,
[2023-11-01] MEDS: Lidocaine 1% (5 ml sdv) 5 ML Vial (07:43)
[2023-11-01] MEDS: 0.9% Normal Saline (Pres. free 10 ML Vial (07:44)
[2023-11-01] MEDS: MethylPREDNISolone Acetate 80 MG/ML Vial (07:44)
[2023-11-01 07:56] VITALS: BP 88/65; BP 96/70; PULSE 72; RESP 16; TEMP 36.4; O2SAT 94
--- NOTE | 2023-11-01 07:59 | OP.PCM_ITS ---
Report of Operation Date of Procedure: 11/01/23 Pre-Operative Diagnosis: Lumbosacral radiculopathy, lumbosacral degenerative di sc disease, lumbosacral spinal stenosis Post-Operative Diagnosis: Lumbosacral radiculopathy, lumbosacral degenerative disc disease, lumbosacral spinal stenosis Surgery/Procedure Performed:: Diagnostic/therapeutic caudal epidural steroid injection under fluoroscopic guidance Type of Anesthesia: MAC Estimated Blood Loss (mL): Minimal Description of Procedure: DESCRIPTION OF PROCEDURE: History and physical of today was reviewed. Risks and benefits of the procedure were explained. The patient understood and agreed to proceed. Informed consent was obtained. IV inserted per routine protocol. The patient was taken to the operating room and placed in the prone position with a pillow positioned underneath the abdomen. The lower back and tailbone area was prepped and draped in a sterile fashion using iodine x3. Under fluoroscopy guidance on a lateral view, the caudal space was identified. The skin and subcutaneous tissue was anesthetized with approximately 3 mL of 1% lidocaine using a 25-gauge regular needle. Under direct visualization with fluoroscopy, using a 22-gauge 3-1/2-inch spinal needle, the needle was advanced via the skin through the sacral hiatus. The tip of the needle was passed through the sacrococcygeal ligament and advanced to approximately S4 area. After negative aspiration of blood or CSF, a total of 3 mL of contrast was injected to confirm correct placement of the needle as well as cephalad spread. The spread was followed to approximately L5 area. After confirmation on AP as well as lateral view and repeated negative aspiration, a total of 15 mL of preservative-free 0.125% Marcaine with 80 mg of Depo-Medrol was injected easily. The needle was then removed intact. The patient experienced no sign or symptoms of intrathecal or intravascular injection. The patient experienced no paresthesia. The procedure was completed without any apparent difficulty or any complications. The patient appeared to tolerate it well. ASSESSMENT AND PLAN: This is a 53-year-old female with lumbosacral radiculopathy, lumbosacral degenerative disc disease, lumbosacral spinal stenosis status post diagnostic/therapeutic caudal epidural steroid injection, patient will continue her current medications, patient will follow in approximately 2 weeks for reevaluation. Complications None
[2023-11-01 08:00] VITALS: BP 95/60; BP 96/70; PULSE 71; RESP 16; O2SAT 100
[2023-11-01 08:05] VITALS: BP 90/62; BP 96/70; PULSE 71; RESP 16; O2SAT 98
[2023-11-01 08:12] VITALS: BP 80/58; BP 96/70; PULSE 71; RESP 16; TEMP 36.5; O2SAT 100
[2023-11-01 08:30] VITALS: BP 96/70
== END 2023-11-01 09:03 | disposition home or self-care (01) ==
LOC: SDC 06:18 → AC 06:19
PROVIDERS: PCP Family Medicine Geriatric Medicine; Referring Provider Anesthesiology Pain Medicine; Visit Provider Anesthesiology Pain Medicine
PROC: 3E0S3BZ Introduction of Anesthetic Agent into Epidural Space, Percutaneous Approach (ICD-10-PCS; CPT 62282; principal; 2023-11-01 07:30)
DX: M48.07 Spinal stenosis, lumbosacral region (principal); M32.14 Glomerular disease in systemic lupus erythematosus; I27.21 Secondary pulmonary arterial hypertension; I13.0 Hypertensive heart and chronic kidney disease with heart failure and stage 1 through stage 4 chronic kidney disease, or unspecified chronic kidney disease; E11.42 Type 2 diabetes mellitus with diabetic polyneuropathy; N18.5 Chronic kidney disease, stage 5; M51.17 Intervertebral disc disorders with radiculopathy, lumbosacral region; Z94.0 Kidney transplant status
CPT/HCPCS: 62323; 49083; 64483; 77003; 82962; J7120; J3490

== ENCOUNTER → 2023-11-01 | Outpatient (CLI) | payer MEDICARE, MEDICAID, SELFPAY ==
[2023-11-01 10:49] VITALS: BP 110/58; PULSE 75; RESP 16; TEMP 36.3; O2SAT 95
[2023-11-01 11:00] VITALS: BP 98/50; PULSE 74; RESP 16; O2SAT 92
[2023-11-01 11:10] VITALS: BP 107/59; PULSE 73; RESP 16; O2SAT 96
--- NOTE | 2023-11-01 11:12 | PCM.OP.PRO ---
Procedure Report Date of Procedure: 11/01/23 Assessment & Plan Assessment/Plan (1) Ascites: QUALIFIERS: Ascites type: other type Qualified Code(s): R18.8 - Other ascites PLAN: PROCEDURE: Ultrasound guided paracentesis ORDERING PROVIDER: Dr. Bowne INDICATION: Female, 53 years old. Ascites. PROVIDER: YAMIL Lock TECHNIQUE: The risks, benefits, and alternatives to the procedure were explained to the patient. The specific risks of bleeding, infection, and damage to bowel were detailed and accepted. Witnessed informed consent was obtained. The abdomen was ultrasonographically surveyed. An appropriate pocket of fluid was identified in the right lower quadrant. The skin was prepped with chlorhexidine and sterile field established. 2% lidocaine was used for local anesthetic. Using ultrasound guidance, the peritoneal cavity was accessed with a 5-[place] paracentesis needle/catheter system. The trocar was removed. A total of 2600 ml of clear yellow colored fluid was removed from the peritoneal cavity. The catheter was removed and a sterile dressing was applied. The procedure was well tolerated. IMPRESSION: Successful ultrasound-guided paracentesis with right lower quadrant access site. Procedures Radiology Radiology US Procedures: [id number] Paracentesis
--- NOTE | 2023-11-02 10:32 | NURSING ---
When pt called for follow up call pt states she had leaking from paracentesis site throughout the night which finally stopped today. Pt mentions she's had multiple issues with leaking post-paracentesis in the past. ROSHAN Biggs states she will put a note in her chart to use surgifoam or glue post-paracentesis every procedure. Pt appreciative and agrees that surgifoam or glue should be used post-procedure everytime.
== END | disposition home or self-care (01) ==
LOC: US 10:32
PROVIDERS: PCP Family Medicine Geriatric Medicine; Referring Provider Family Medicine Geriatric Medicine; Visit Provider Family Medicine Geriatric Medicine
DX: R18.8 Other ascites (principal)
CPT/HCPCS: 49083

== ENCOUNTER → 2023-11-04 | Outpatient (CLI) | payer MEDICARE, MEDICAID, SELFPAY ==
[2023-11-04 17:29] LABS: Anion Gap 9 (5-15); BUN 97 mg/dL (7-18); BUN/Creat Ratio 28.1 RATIO (10-20); Chloride 108 mmol/L (98-107); Creatinine, Serum 3.45 mg/dL (0.55-1.02); EST Glomerular Filtration Rate 15 mL/min (>60); Est Glom Filt Rate - Afr Amer 18 mL/min (>60); Glucose 118 mg/dL (74-106); Potassium 5.4 mmol/L (3.5-5.1); Sodium Level 134 mmol/L (136-145)
[2023-11-04 17:39] LABS: Hemoglobin A1c 6.3 % (3.8-5.6)
== END | disposition home or self-care (01) ==
LOC: POLAB3 16:34
PROVIDERS: PCP Family Medicine Geriatric Medicine; Visit Provider Family Medicine Geriatric Medicine
DX: N39.0 Urinary tract infection, site not specified (principal); E11.65 Type 2 diabetes mellitus with hyperglycemia; E11.22 Type 2 diabetes mellitus with diabetic chronic kidney disease; N18.6 End stage renal disease
CPT/HCPCS: 80048; 83036; 87077; 87086; 87088; 87186

== ENCOUNTER → 2023-11-08 | Outpatient (CLI) | payer MEDICARE, MEDICAID, SELFPAY ==
[2023-11-08] VITALS (7 sets, daily range): BP systolic 93–124; BP diastolic 56–80; PULSE 64–66; RESP 16–18; TEMP 36; O2SAT 96–98
[2023-11-08] MEDS: Lidocaine 2% (20 ml mdv) 20 ML Vial INFILT (08:12)
--- NOTE | 2023-11-08 09:09 | PRO.PCM_ITS ---
Procedure Report Date of Procedure: 11/08/23 Assessment & Plan Assessment/Plan (1) Ascites: QUALIFIERS: Ascites type: other type Qualified Code(s): R18.8 - Other ascites PLAN: PROCEDURE: Ultrasound guided paracentesis ORDERING PROVIDER: Dr. Bowen INDICATION: Female, 53 years old. Ascites. PROVIDER: YAMIL Lock TECHNIQUE: The risks, benefits, and alternatives to the procedure were explained to the patient. The specific risks of bleeding, infection, and damage to bowel were detailed and accepted. Witnessed informed consent was obtained. The abdomen was ultrasonographically surveyed. An appropriate pocket of fluid was identified in the right lower quadrant. The skin was prepped with chlorhexidine and sterile field established. 2% lidocaine was used for local anesthetic. Using ultrasound guidance, the peritoneal cavity was accessed with a 5-[place] paracentesis needle/catheter system. The trocar was removed. A total of 1500 ml of cloudy thu colored fluid was removed from the peritoneal cavity. The catheter was removed and a sterile dressing was applied. The patient experienced leaking at the site of the paracentesis last week and continued to ooze at the site this week. Prior to the application sterile dressing, Dermabond and Surgifoam were applied. The procedure was well tolerated. IMPRESSION: Successful ultrasound-guided paracentesis with right lower quadrant access site. Procedures Radiology Radiology US Procedures: [id number] Paracentesis
== END | disposition home or self-care (01) ==
LOC: US 07:40
PROVIDERS: PCP Family Medicine Geriatric Medicine; Referring Provider Family Medicine Geriatric Medicine; Visit Provider Family Medicine Geriatric Medicine
DX: R18.8 Other ascites (principal)
CPT/HCPCS: 49083

== ENCOUNTER → 2023-11-17 | Outpatient (CLI) | payer MEDICARE, MEDICAID, SELFPAY ==
[2023-11-17 10:39] VITALS: BP 110/72; PULSE 70; RESP 16; TEMP 35.9; O2SAT 99
[2023-11-17] MEDS: Lidocaine 2% (20 ml mdv) 20 ML Vial INFILT (10:40)
[2023-11-17 10:46] VITALS: BP 105/63; PULSE 70; RESP 16; O2SAT 99
[2023-11-17 10:55] VITALS: BP 100/59; PULSE 64; RESP 16; O2SAT 97
--- NOTE | 2023-11-17 12:44 | PRO.PCM_ITS ---
Procedure Report Date of Procedure: 11/17/23 Assessment & Plan Assessment/Plan (1) Ascites: QUALIFIERS: Ascites type: other type Qualified Code(s): R18.8 - Other ascites PLAN: PROCEDURE: Ultrasound guided paracentesis ORDERING PROVIDER: Dr. Bowen INDICATION: Female, 53 years old. Ascites. PROVIDER: YAMIL Lock TECHNIQUE: The risks, benefits, and alternatives to the procedure were explained to the patient. The specific risks of bleeding, infection, and damage to bowel were detailed and accepted. Witnessed informed consent was obtained. The abdomen was ultrasonographically surveyed. An appropriate pocket of fluid was identified in the right upper quadrant. The skin was prepped with chlorhexidine and sterile field established. 2% lidocaine was used for local anesthetic. Using ultrasound guidance, the peritoneal cavity was accessed with a 5-Burkinan paracentesis needle/catheter system. The trocar was removed. A total of 2050 ml of clear yellow colored fluid was removed from the peritoneal cavity. The catheter was removed and a sterile dressing was applied. The procedure was well tolerated. IMPRESSION: Successful ultrasound-guided paracentesis with right upper quadrant access site Procedures Radiology Radiology US Procedures: [id number] Paracentesis
== END | disposition home or self-care (01) ==
LOC: US 10:14
PROVIDERS: PCP Family Medicine Geriatric Medicine; Referring Provider Family Medicine Geriatric Medicine; Visit Provider Family Medicine Geriatric Medicine
DX: R18.8 Other ascites (principal)
CPT/HCPCS: 49083

== ENCOUNTER 2023-11-20 13:16 | Inpatient (IN) | payer MEDICARE, MEDICAID, SELFPAY ==
[2023-11-20] VITALS (15 sets, daily range): BP systolic 82–113; BP diastolic 42–85; PULSE 53–74; RESP 14–21; TEMP 36.6–37.1; O2SAT 93–100; BMI 33.5; BMI 32.1
--- NOTE | 2023-11-20 13:23 | NURSING ---
STEMI CALLED [id number]
--- NOTE | 2023-11-20 13:26 | EKG12_ITS ---
Test Reason : STEMI Blood Pressure : / mmHG Vent. Rate : 064 BPM Atrial Rate : 064 BPM P-R Int : 194 ms QRS Dur : 134 ms QT Int : 438 ms P-R-T Axes : 055 -17 006 degrees QTc Int : 451 ms Normal sinus rhythm with sinus arrhythmia Right bundle branch block Abnormal ECG ST ELEVATEION ANTER/LAT LEADS, BORDERLINE STEMI CRITERIA Confirmed by Cholo Montenegro ([id number]), order editor LUISA PRESTON ([id number]) on 11/23/2023 7:24:22 AM Referred By: KOLTON Confirmed By:Cholo Montenegro
[2023-11-20] MEDS: Metoclopramide 10 MG/2 ML Vial 5 MG IV (13:34)
[2023-11-20] MEDS: Aspirin 81 MG TAB.CHEW 324 MG PO (13:34)
--- NOTE | 2023-11-20 13:41 | RAD_ITS ---
EXAM: XR CHEST, 1 VIEW CLINICAL INDICATION: SOB. TECHNIQUE: Frontal view of the chest. COMPARISON: 07/17/2020. FINDINGS: LUNGS AND PLEURAL SPACES: Unremarkable. No consolidation or edema. No pneumothorax. No effusion. HEART: Unremarkable. Cardiac silhouette not enlarged. MEDIASTINUM: Central airways and mediastinal contour are unremarkable. BONES/JOINTS: Unremarkable. No acute fracture. SOFT TISSUES: Unremarkable. RAD/Chest 1 View (Portable) IMPRESSION: No radiographic evidence of acute cardiopulmonary disease and unchanged when compared to 07/17/2020. Electronically Signed: Josafat Plummer MD at 14:27 EST ,
[2023-11-20 13:43] LABS: Absolute Lymphocyte Count 1.17 X10^3/uL (0.83-4.51); Absolute Neutrophil Count 5.9 X10^3/uL (2.0-7.7); Basophil# 0.05 X10^3/uL; Basophil% 0.6 % (0-1); Eosinophil# 0.06 X10^3/uL; Eosinophils% 0.7 % (0-5); Hematocrit 47.9 % (37-47); Hemoglobin 14.8 g/dL (12.0-15.0); Lymphocyte # 1.17 X10^3/ul (0.83-4.51); Lymphocyte % 13.9 % (19-41); Mean Corp Hgb Conc 30.9 g/dL (32-36); Mean Corpuscular Hgb 29.9 pg (27.0-32.0); Mean Corpuscular Volume 96.8 fL (81-99); Monocyte# 1.16 X10^3/uL; Monocyte% 13.8 % (0-10); NRBC Flagged by Analyzer 0.2 % (0-5); Neutrophil % 70.4 % (47-70); Platelet Count 158 K/mm3 (150-450); RBC Distribution Width CV 18.8 % (11.6-14.6); RBC Distribution Width SD 64.5 fl (35.1-43.9); Red Blood Count 4.95 M/mm3 (4.2-5.4); White Blood Count 8.4 K/mm3 (4.4-11.0)
[2023-11-20 14:06] LABS: International Normalized Ratio 1.3; Prothrombin Time (Protime)PT. 16.5 SECONDS (11.7-14.9)
[2023-11-20 14:07] LABS: Partial Thromboplast Time 33.7 Seconds (24.1-36.2)
[2023-11-20 14:16] LABS: AST(SGOT) 48 U/L (15-37); Alanine Aminotransfer ALT/SGPT 17 U/L (13-56); Albumin, Serum 2.8 g/dL (3.2-5.0); Alkaline Phosphatase 132 U/L (45-117); Anion Gap 8 (5-15); BUN 56 mg/dL (7-18); BUN/Creat Ratio 15.6 RATIO (10-20); Bilirubin, Direct 1.64 mg/dL (0.00-0.30); Calcium,Total 9.1 mg/dL (8.5-10.1); Chloride 102 mmol/L (98-107); Creatinine, Serum 3.59 mg/dL (0.55-1.02); EST Glomerular Filtration Rate 14 mL/min (>60); Est Glom Filt Rate - Afr Amer 17 mL/min (>60); Estimated Creatinine Clearance 19.98 ml/min; Globulin 4.3 g/dL (2.2-4.2); Glucose 118 mg/dL (74-106); Potassium 7.6 mmol/L (3.5-5.1); Protein, Total 7.1 g/dL (6.4-8.2); Sodium Level 132 mmol/L (136-145); Troponin-I HS (w/2H Reflex) 55 pg/mL (3.0-54.0)
--- NOTE | 2023-11-20 14:39 | EX.ED.DYSGE1 ---
HPI History of Present Illness Chief Complaint: Chest Pain Detail of Chief Complaint: Weakness, dizziness Informant: patient Narrative Narrative: Patient presents via EMS secondary to weakness and dizziness. She reports symptoms for the past 3 days or so. She denies chest pain. Prehospital EKG was sinus rhythm with subtle ST elevation in the anterior leads. Prehospital STEMI alert was initiated. On arrival repeat EKG was obtained and reveals sinus rhythm at 64 bpm with some continued subtle ST changes, but not as noticeable as the prehospital EKG. When I pull up her prior EKGs this is actually significantly improved when compared to previous. Patient was discussed with STEMI physician and STEMI alert canceled at that time. Patient does have a history of kidney transplant. She states her blood pressure has been running slightly low recently and her doctors recently decreased her diuretic dose. 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 Lupus Lupus nephritis Narcolepsy Non-rheumatic tricuspid valve insufficiency Non-smoker Nonrheumatic mitral (valve) insufficiency Obstructive sleep apnea Osteopenia Post-menopausal Prolonged QT interval Right ventricular dilation Secondary pulmonary arterial hypertension Shortness of breath on exertion SLE (systemic lupus erythematosus) Uses wheelchair Vitamin D deficiency Walker as ambulation aid Wears dentures Wears glasses Home Medications ipratropium bromide 42 mcg (0.06 %) nasal spray 1 spray intranasal BID 07/08/20 [History Last Taken 10/31/23] prednisone 5 mg tablet 5 mg PO DAILY steroid for lupus 07/08/20 [History Last Taken 10/31/23] levocetirizine 5 mg tablet 5 mg PO DAILY ALLERGIES 07/17/20 [History Last Taken 10/31/23] blood sugar diagnostic #10 ea 11/04/20 [History Last Taken Unknown] lancets 33 gauge #100 ea 11/04/20 [History Last Taken Unknown] pregabalin 150 mg capsule 150 mg PO BID 03/31/21 [History Last Taken 10/31/23] OneTouch Verio test strips (blood sugar diagnostic) #360 ea 04/17/21 [Rx Last Taken Unknown] hydroxychloroquine 200 mg tablet 200 mg PO DAILY antimalarial 07/08/21 [History Last Taken 10/31/23] hydralazine 25 mg tablet 25 mg PO 4X/DAY PRN Hypertension 08/26/21 [History Last Taken 10/31/23] oxycodone 5 mg tablet 5 mg PO DAILY PRN PRN Pain 08/26/21 [History Last Taken 11/01/23] acetaminophen 500 mg tablet 500 mg PO Q6H PRN pain/fever 11/25/21 [History Last Taken Unknown] ketoconazole 2 % shampoo 1 applic topical DAILY 01/04/22 [History Last Taken 10/31/23] desvenlafaxine succinate 100 mg tablet,extended release 24 hr 100 mg PO DAILY ANTIDEPRESSANT 02/19/22 [History Last Taken 10/31/23] Dexcom G6 Human Intelligence (blood-glucose meter,continuous) #1 ea 03/04/22 [Rx Last Taken Unknown] cevimeline 30 mg capsule (Evoxac) 1 cap PO TID 05/05/22 [History Last Taken 10/31/23] BD Ultra-Fine Mini Pen Needle 31 gauge x 3/16 (pen needle, diabetic) #100 ea 06/30/22 [Rx Last Taken Unknown] alpha lipoic acid 600 mg capsule 600 mg PO BID 07/23/22 [History Last Taken 10/31/23] carvedilol 25 mg tablet 12.5 mg PO BID 08/14/22 [History Last Taken 10/31/23] mycophenolate mofetil 250 mg capsule (CellCept) 500 mg PO BID 03/04/23 [History Last Taken 10/31/23] cyclosporine 25 mg capsule 75 mg PO BID 03/05/23 [History Last Taken 10/31/23] lancets 33 gauge (OneTouch Delica Lancets) 03/05/23 [History Last Taken Unknown] mirtazapine 15 mg tablet 30 mg PO QHS 03/05/23 [History Last Taken 10/31/23] Lactobacillus acidophilus (Acidophilus capsule) 10 mg PO DAILY 04/01/23 [History Last Taken 10/31/23] bumetanide 1 mg tablet 2 mg PO DAILY 04/01/23 [History Last Taken 10/31/23] clindamycin 1.2 % (1 % base)-benzoyl peroxide 5 % topical gel 1 applic topical DAILY 04/01/23 [History Last Taken 10/31/23] betamethasone, augmented 0.05 % topical cream 1 applic topical 06/09/23 [History Last Taken 10/31/23] diclofenac sodium 1 % topical gel (Voltaren Arthritis Pain) 2 g topical ONCE PRN pain 06/09/23 [History Last Taken 10/31/23] Humalog U-100 Insulin 100 unit/mL subcutaneous solution (insulin lispro) 100 unit subcut DAILY #90 mL 09/30/23 [Rx Last Taken Unknown] insulin pump cart,automated,BT (Omnipod 5 G6 Pods (Gen 5) subcutaneous cartridge) #45 ea 09/30/23 [Rx Last Taken Unknown] Dexcom G6 Transmitter (blood-glucose transmitter) #1 ea 10/07/23 [Rx Last Taken Unknown] Dexcom G6 Sensor (blood-glucose sensor) #3 ea 10/25/23 [Rx Last Taken Unknown] dextroamphetamine-amphetamine ER 15 mg 24hr capsule,extend release (Adderall XR) 15 mg PO DAILY NARCOLEPSY 10/29/23 [History Last Taken 10/31/23] spironolactone 25 mg tablet 25 mg PO DAILY 11/20/23 [History Last Taken Unknown] Allergy/AdvReac Type Severity Reaction Status Date / Time LONG Inhibitors Allergy Angioedema Verified 11/20/23 15:05 adhesive Allergy Rash Verified 11/20/23 15:05 lisinopril Allergy Angioedema Verified 11/20/23 15:05 Sulfa (Sulfonamide Allergy Rash Verified 11/20/23 15:05 Antibiotics) sulfamethoxazole Allergy Rash Verified 11/20/23 15:05 [From Bactrim] trimethoprim [From Bactrim] Allergy Rash Verified 11/20/23 15:05 tuberculin, purified protein Allergy Unknown Verified 11/20/23 15:05 deriva Family History Mother Hypertension Kidney disease ALS (amyotrophic lateral sclerosis) Father Heart disease Hypertension Kidney disease Diabetes Brother Melanoma Surgical History Hip replacement planned History of biopsy History of dilation and curettage History of esophagogastroduodenoscopy (EGD) History of left heart catheterization (03/08/20) History of right hip replacement Hx of right heart catheterization Kidney transplant recipient port removed revision of right hip arthroplasty (05/10/19) S/P colonoscopy S/P lymph node biopsy S/P nasal polypectomy Status post carpal tunnel release Status post total hip replacement, bilateral Social History Smoking Status: Never smoker alcohol intake: never substance use type: does not use caffeine: No what type of physical activity do you participate in: other details: PT seatbelt use: always do you feel safe at home: Yes additional social history: Single ROS ROS ED Constitutional Constitutional ED: Denies chills or fever(s) Eyes Eyes: Denies change in vision or discharge from eye(s) ENT ENT ED: Denies discharge from eye(s), rhinorrhea or sore throat Cardiovascular Cardiovascular: Denies chest pain Respiratory/Chest Respiratory/Chest: Reports dyspnea; Denies cough Gastrointestinal Gastrointestinal: Reports nausea and vomiting; Denies abdominal pain or diarrhea Genitourinary Genitourinary ED: Denies dysuria Musculoskeletal Musculoskeletal: Reports other Details: Increased edema ; Denies back pain or extremity pain Integumentary Denies Abrasions or rash Neurologic Neurologic: Reports weakness; Denies headache(s) Psychiatric Psychiatric: Denies anxiety or depression Allergic/Immunologic Allergic/Immunologic ED: Denies lip swelling or urticaria EXAM Physical Exam Const Vital Signs: 11/20/23 13:17 11/20/23 13:23 11/20/23 13:25 Temperature 98.8 F Temperature Source Temporal Pulse Rate 65 63 Respiratory Rate 21 H 16 16 Respiratory Effort Blood Pressure 109/85 H 109/85 H 109/85 H Blood Pressure Mean 93 93 Pulse Ox 100 98 Oxygen Delivery Method Room Air Room Air 11/20/23 13:25 11/20/23 14:17 11/20/23 15:00 Temperature Temperature Source Pulse Rate 62 62 Respiratory Rate 14 15 Respiratory Effort Short of Breath Blood Pressure 110/53 L 91/62 Blood Pressure Mean 72 71 Pulse Ox 100 96 Oxygen Delivery Method Room Air Room Air Positive well nourished and well developed General Appearance ED: well developed HEENT Reports moist mucous membranes Eyes EOMs intact bilaterally Chest Wall inspection of chest normal and palpation of chest normal Resp normal respiratory effort Resp Narrative: Diminished breath sounds bilateral bases. Cardio regular rate and regular rhythm GI GI Narrative: Abdomen soft with no focal tenderness. Active bowel sounds noted. Extremity Extremity Narrative: 2-3+ bilateral lower extremity edema. Neuro oriented x3 Neuro Narrative: No focal neurologic deficit. MDM MDM MDM Narrative Medical decision making narrative: IV line initiated. EKG obtained to evaluate for cardiac arrhythmia/ischemia. Chest x-ray obtained to evaluate for acute lung pathology, cardiac size, or mediastinal abnormality. Labwork obtained to evaluate for leukocytosis, anemia, and electrolyte derangement. Patient given aspirin here along with a dose of Reglan to help with nausea. Lab Data Labs: Laboratory Results - last 24 hr 11/20/23 11/20/23 13:29 14:20 WBC 8.4 RBC 4.95 Hgb 14.8 Hct 47.9 H MCV 96.8 MCH 29.9 MCHC 30.9 L RDW Std Deviation 64.5 H RDW Coeff of Jah 18.8 H Plt Count 158 MPV 11.0 Immature Gran % (Auto) 0.600 Neut % (Auto) 70.4 H Lymph % (Auto) 13.9 L Logan % (Auto) 13.8 H Eos % (Auto) 0.7 Baso % (Auto) 0.6 Absolute Neuts (auto) 5.9 Absolute Lymphs (auto) 1.17 Nucleated RBC % 0.2 PT 16.5 H INR 1.3 APTT 33.7 Sodium 132 L Potassium 7.6 H* 6.5 H* Chloride 102 Carbon Dioxide 22.0 Anion Gap 8 BUN 56 H Creatinine 3.59 H Estim Creat Clear Calc 19.98 Est GFR (MDRD) Af Amer 17 L Est GFR (MDRD) Non-Af 14 L BUN/Creatinine Ratio 15.6 Glucose 118 H Calcium 9.1 Total Bilirubin 2.80 H Direct Bilirubin 1.64 H AST 48 H ALT 17 Alkaline Phosphatase 132 H Troponin I High Sens 55 H Total Protein 7.1 Albumin 2.8 L Globulin 4.3 H Radiography Chest X-Ray - ED: 1 View, Read by ED Physician, Chronic Changes and No Infiltrates Diagnostic Testing: Clinical Impression(s) from Imaging Studies Chest X-Ray 11/20/23 13:41 IMPRESSION: No radiographic evidence of acute cardiopulmonary disease and unchanged when compared to 07/17/2020. Electronically Signed: Josafat Plummer MD at 14:27 EST , EKG Initial EKG: Attestation: I personally reviewed and interpreted this EKG as follows: Interpretation: Sinus Rhythm (Sinus at [address] changes in the anterior precordial leads. This is actually improved when compared to prior studies.) Treatment and Re-Evaluation :: CBC was a white count 8.4 with hemoglobin of 14.8. Coags unremarkable. Chemistry studies initially revealed a potassium of 7.6 with moderate hemolysis. Repeat potassium was 6.5. BUN is 56 and creatinine is 3.59. This is consistent with her baseline. Bilirubins are slightly elevated. Alk phos is 132. Initial troponin is 55, improved when compared to prior values. On repeat evaluation patient states her nausea is improved with the Reglan. Given her continued elevated potassium she is given albuterol, insulin and glucose, and Kayexalate. Nursing staff did note a couple brief pauses on her heart rate with heart rate dropping down into the 30s and she would quickly recover. I do not see significant QRS widening or peaked T waves. I will speak with hospitalist regarding admission. Discharge Plan Triage Chief Complaint: Chest Pain ED Provider: Jovanna Gaytan Dx/Rx/DC Orders Clinical Impression: Dizziness, Hyperkalemia Prescriptions: No Action ipratropium bromide 42 mcg (0.06 %) spray,non-aerosol 1 spray INTRANASAL BID (DME) blood sugar diagnostic Strip See Rx Instructions .ROUTE .MEDSUPPLY Qty: 10 Patient Comments: use 1 TEST STRIP to TEST BLOOD SUGAR daily Rx Instructions: As directed (DME) lancets 33 gauge misc See Rx Instructions .ROUTE .MEDSUPPLY Qty: 100 Patient Comments: use 1 LANCET to TEST BLOOD SUGAR daily Rx Instructions: As directed pregabalin 150 mg capsule 150 mg PO BID carvedilol 25 mg tablet 25 mg PO BID hydralazine 25 mg tablet 25 mg PO 4X/DAY PRN (Reason: Hypertension) oxycodone 5 mg tablet 5 mg PO DAILY PRN PRN (Reason: Pain) acetaminophen 500 mg tablet 500 mg PO Q6H PRN (Reason: pain/fever) mirtazapine 15 mg tablet 30 mg PO QHS desvenlafaxine succinate 100 mg tablet extended release 24 hr 100 mg PO DAILY cevimeline [Evoxac] 30 mg capsule 1 cap PO TID mycophenolate mofetil [CellCept] 250 mg capsule 500 mg PO BID bumetanide 1 mg tablet 2 mg PO DAILY Acidophilus Capsule 10 mg PO DAILY clindamycin-benzoyl peroxide 1.2 %(1 % base) -5 % gel 1 applic topical DAILY (DME) lancets [OneTouch Delica Lancets] 33 gauge misc See Rx Instructions .ROUTE .MEDSUPPLY Rx Instructions: 4x/day betamethasone, augmented 0.05 % cream 1 applic topical diclofenac sodium [Voltaren Arthritis Pain] 1 % gel 2 g topical ONCE PRN (Reason: pain) Rx Instructions: apply to single elbow, wrist or hand; for hand includes palm/fingers/back of hand hydroxychloroquine 200 mg tablet 200 mg PO DAILY Patient Comments: lupus prednisone 5 mg tablet 5 mg PO DAILY levocetirizine 5 MG tablet 5 mg PO DAILY ketoconazole 2 % Shampoo 1 applic TOPICAL DAILY cyclosporine 25 mg capsule 75 mg PO BID alpha lipoic acid 600 mg Capsule 600 mg PO BID dextroamphetamine-amphetamine [Adderall XR] 15 mg capsule,extended release 24hr 15 mg PO DAILY potassium chloride 10 mEq capsule, extended release 20 meq PO DAILY (DME) OneTouch Verio test strips Strip See Rx Instructions .ROUTE .MEDSUPPLY Qty: 360 3RF Rx Instructions: As directed up to 4x daily to monitor glucose levels (DME) Dexcom G6 Human Intelligence Misc See Rx Instructions .Route Qty: 1 0RF Rx Instructions: As directed (DME) pen needle, diabetic [BD Ultra-Fine Mini Pen Needle] 31 gauge x 3/16 needle See Rx Instructions .ROUTE .MEDSUPPLY Qty: 100 3RF Rx Instructions: 3x/day insulin lispro [Humalog U-100 Insulin] 100 unit/mL solution 100 unit subcut DAILY Qty: 90 1RF Rx Instructions: via pump (DME) Omnipod 5 G6 Pods (Gen 5) Cartridge See Rx Instructions .Route Qty: 45 1RF Rx Instructions: 1 pod q 48 hours (DME) Dexcom G6 Transmitter Device See Rx Instructions .Route Qty: 1 1RF Rx Instructions: 1 q 90 days (DME) Dexcom G6 Sensor Device See Rx Instructions .Route Qty: 3 3RF Rx Instructions: 1 sensor q 10 days Primary Care Provider: Mitchell Bowen Chi Referrals: Mitchell Bowen Chi, MD [Primary Care Provider] - Disposition Disposition: Acute Care Hospital [facility]
[2023-11-20 15:03] LABS: Potassium 6.5 mmol/L (3.5-5.1)
--- NOTE | 2023-11-20 15:13 | PCM.HP.STD ---
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 Prehospital EKG was suggestive of subtle ST elevation in anterior leads and ST YKAW call was initiated. This was discussed with the STEMI physician, and a repeat EKG had only subtle STEMI changes. The STEMI call has been canceled.Her chemistry labs showed a potassium of 7.6 with a moderate amount of hemolysis. Her diuretics Bumex and spironolactone were recently increased but because of hypotension and dizziness, they have been reduced again. For her heart failure most of her management is done at [facility]. During her prior admission her discharge weight was 180 pounds at discharge. At the time of present patient her body weight is 187 pounds. COUNTS INCLUDE 234 BEDS AT THE [facility] Medical History Ambulates with cane Cardiology follow-up encounter Cervical spondylosis CHF with right heart failure Chronic diarrhea CPAP (continuous positive airway pressure) dependence Degenerative disc disease, cervical Diastolic CHF, chronic Essential hypertension Fatty liver Gastric reflux Hip pain History of echocardiogram History of stress test Hypophosphatemia 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 Lupus Lupus nephritis Narcolepsy Non-rheumatic tricuspid valve insufficiency Non-smoker Nonrheumatic mitral (valve) insufficiency Obstructive sleep apnea Osteopenia Post-menopausal Prolonged QT interval Right ventricular dilation Secondary pulmonary arterial hypertension Shortness of breath on exertion SLE (systemic lupus erythematosus) Uses wheelchair Vitamin D deficiency Walker as ambulation aid Wears dentures Wears glasses Home Medications ipratropium bromide 42 mcg (0.06 %) nasal spray 1 spray intranasal BID 07/08/20 [History Last Taken 10/31/23] prednisone 5 mg tablet 5 mg PO DAILY steroid for lupus 07/08/20 [History Last Taken 10/31/23] levocetirizine 5 mg tablet 5 mg PO DAILY ALLERGIES 07/17/20 [History Last Taken 10/31/23] blood sugar diagnostic #10 ea 11/04/20 [History Last Taken Unknown] lancets 33 gauge #100 ea 11/04/20 [History Last Taken Unknown] pregabalin 150 mg capsule 150 mg PO BID 03/31/21 [History Last Taken 10/31/23] Lexpertia.com Verio test strips (blood sugar diagnostic) #360 ea 04/17/21 [Rx Last Taken Unknown] hydroxychloroquine 200 mg tablet 200 mg PO DAILY antimalarial 07/08/21 [History Last Taken 10/31/23] hydralazine 25 mg tablet 25 mg PO 4X/DAY PRN Hypertension 08/26/21 [History Last Taken 10/31/23] oxycodone 5 mg tablet 5 mg PO DAILY PRN PRN Pain 08/26/21 [History Last Taken 11/01/23] acetaminophen 500 mg tablet 500 mg PO Q6H PRN pain/fever 11/25/21 [History Last Taken Unknown] ketoconazole 2 % shampoo 1 applic topical DAILY 01/04/22 [History Last Taken 10/31/23] desvenlafaxine succinate 100 mg tablet,extended release 24 hr 100 mg PO DAILY ANTIDEPRESSANT 02/19/22 [History Last Taken 10/31/23] Dexcom G6 Pediatric Nurse (blood-glucose meter,continuous) #1 ea 03/04/22 [Rx Last Taken Unknown] cevimeline 30 mg capsule (Evoxac) 1 cap PO TID 05/05/22 [History Last Taken 10/31/23] BD Ultra-Fine Mini Pen Needle 31 gauge x 3/16 (pen needle, diabetic) #100 ea 06/30/22 [Rx Last Taken Unknown] alpha lipoic acid 600 mg capsule 600 mg PO BID 07/23/22 [History Last Taken 10/31/23] carvedilol 25 mg tablet 12.5 mg PO BID 08/14/22 [History Last Taken 10/31/23] mycophenolate mofetil 250 mg capsule (CellCept) 500 mg PO BID 03/04/23 [History Last Taken 10/31/23] cyclosporine 25 mg capsule 75 mg PO BID 03/05/23 [History Last Taken 10/31/23] lancets 33 gauge (OneTouch Delica Lancets) 03/05/23 [History Last Taken Unknown] mirtazapine 15 mg tablet 30 mg PO QHS 03/05/23 [History Last Taken 10/31/23] Lactobacillus acidophilus (Acidophilus capsule) 10 mg PO DAILY 04/01/23 [History Last Taken 10/31/23] bumetanide 1 mg tablet 2 mg PO DAILY 04/01/23 [History Last Taken 10/31/23] clindamycin 1.2 % (1 % base)-benzoyl peroxide 5 % topical gel 1 applic topical DAILY 04/01/23 [History Last Taken 10/31/23] betamethasone, augmented 0.05 % topical cream 1 applic topical 06/09/23 [History Last Taken 10/31/23] diclofenac sodium 1 % topical gel (Voltaren Arthritis Pain) 2 g topical ONCE PRN pain 06/09/23 [History Last Taken 10/31/23] Humalog U-100 Insulin 100 unit/mL subcutaneous solution (insulin lispro) 100 unit subcut DAILY #90 mL 09/30/23 [Rx Last Taken Unknown] insulin pump cart,automated,BT (Omnipod 5 G6 Pods (Gen 5) subcutaneous cartridge) #45 ea 09/30/23 [Rx Last Taken Unknown] Dexcom G6 Transmitter (blood-glucose transmitter) #1 ea 10/07/23 [Rx Last Taken Unknown] Dexcom G6 Sensor (blood-glucose sensor) #3 ea 10/25/23 [Rx Last Taken Unknown] dextroamphetamine-amphetamine ER 15 mg 24hr capsule,extend release (Adderall XR) 15 mg PO DAILY NARCOLEPSY 10/29/23 [History Last Taken 10/31/23] spironolactone 25 mg tablet 25 mg PO DAILY 11/20/23 [History Last Taken Unknown] Allergy/AdvReac Type Severity Reaction Status Date / Time LONG Inhibitors Allergy Angioedema Verified 11/20/23 15:05 adhesive Allergy Rash Verified 11/20/23 15:05 lisinopril Allergy Angioedema Verified 11/20/23 15:05 Sulfa (Sulfonamide Allergy Rash Verified 11/20/23 15:05 Antibiotics) sulfamethoxazole Allergy Rash Verified 11/20/23 15:05 [From Bactrim] trimethoprim [From Bactrim] Allergy Rash Verified 11/20/23 15:05 tuberculin, purified protein Allergy Unknown Verified 11/20/23 15:05 deriva Family History Mother Hypertension Kidney disease ALS (amyotrophic lateral sclerosis) Father Heart disease Hypertension Kidney disease Diabetes Brother Melanoma Surgical History Hip replacement planned History of biopsy History of dilation and curettage History of esophagogastroduodenoscopy (EGD) History of left heart catheterization (03/08/20) History of right hip replacement Hx of right heart catheterization Kidney transplant recipient port removed revision of right hip arthroplasty (05/10/19) S/P colonoscopy S/P lymph node biopsy S/P nasal polypectomy Status post carpal tunnel release Status post total hip replacement, bilateral Social History household members: family housing: house Smoking Status: Never smoker alcohol intake: never substance use type: does not use caffeine: No what type of physical activity do you participate in: other details: PT seatbelt use: always do you feel safe at home: Yes additional social history: Single ROS Review of Systems ROS Unobtainable: Denies due to encephalopathy, due to endotracheal tube, due to mental condition, due to mental status or other Constitutional Constitutional: Reports change in weight and other Eyes Eyes: Reports other ENT HEENT: Reports other Cardiovascular Cardiovascular: Reports chest pain, dyspnea on exertion, edema, lightheadedness and orthopnea Respiratory/Chest Respiratory/Chest: Reports dyspnea; Denies cough, excessive phlegm production, hemoptysis, productive cough, shortness of breath at rest, shortness of breath with exertion, wheezing or other Gastrointestinal Gastrointestinal: Denies abdominal pain, coffee ground emesis, constipation, diarrhea, dyspepsia, hematemesis, hematochezia, loose stools, melena, nausea, vomiting or other Genitourinary Genitourinary: Denies burning urination, difficulty urinating, dysuria, hematuria, nocturia, urinary frequency, urinary hesitancy, urinary incontinence, urinary urgency or other Neurologic Neurologic: Denies abnormal gait, abnormal speech, confusion, disequilibrium, dizziness, focal weakness, headache(s), numbness, paresthesias, seizure-like activity, seizures, syncope, tingling, tremor(s) or other Psychiatric Psychiatric: Denies anxiety, depression, homicidal ideation, suicidal ideation or other Endocrine Endocrinology: Denies change in body appearance, cold intolerance, excessive sweating, heat intolerance, polydipsia, polyuria or other Allergic/Immunologic Allergic/Immunologic: Denies rhinitis, hives, eczemia, asthma or other Vital Signs Vital Signs Vital Signs: 11/20/23 13:17 11/20/23 13:23 11/20/23 13:25 Temperature 98.8 F Temperature Source Temporal Pulse Rate 65 63 Respiratory Rate 21 H 16 16 Respiratory Effort Blood Pressure 109/85 H 109/85 H 109/85 H Blood Pressure Mean 93 93 Pulse Ox 100 98 Oxygen Delivery Method Room Air Room Air 11/20/23 13:25 11/20/23 14:17 11/20/23 15:00 Temperature Temperature Source Pulse Rate 62 62 Respiratory Rate 14 15 Respiratory Effort Short of Breath Blood Pressure 110/53 L 91/62 Blood Pressure Mean 72 71 Pulse Ox 100 96 Oxygen Delivery Method Room Air Room Air Weight Weight: 195 lb 5.273 oz Body Mass Index (BMI) 33.5 Physical Exam Const alert and oriented x3 Neck no lymphadenopathy Resp normal respiratory effort Cardio regular rate and regular rhythm GI normal to inspection, nondistended, normoactive bowel sounds Extremity normal to inspection Extremity Narrative: No pitting edema Neuro oriented x3 Results Medical Records Data Attestation: I reviewed the patient's medical records Lab / Micro Data Attestation: I reviewed the patient's lab results. 11/20/23 13:29 11/20/23 14:20 Labs: Laboratory Results - last 24 hr 11/20/23 13:29: WBC 8.4, RBC 4.95, Hgb 14.8, Hct 47.9 H, MCV 96.8, MCH 29.9, MCHC 30.9 L, RDW Std Deviation 64.5 H, RDW Coeff of Jah 18.8 H, Plt Count 158, MPV 11.0, Immature Gran % (Auto) 0.600, Neut % (Auto) 70.4 H, Lymph % (Auto) 13.9 L, [place] % (Auto) 13.8 H, Eos % (Auto) 0.7, Baso % (Auto) 0.6, Absolute Neuts (auto) 5.9, Absolute Lymphs (auto) 1.17, Nucleated RBC % 0.2, PT 16.5 H, INR 1.3, APTT 33.7, Sodium 132 L, Potassium 7.6 H*, Chloride 102, Carbon Dioxide 22.0, Anion Gap 8, BUN 56 H, Creatinine 3.59 H, Estim Creat Clear Calc 19.98, Est GFR (MDRD) Af Amer 17 L, Est GFR (MDRD) Non-Af 14 L, BUN/Creatinine Ratio 15.6, Glucose 118 H, Calcium 9.1, Total Bilirubin 2.80 H, Direct Bilirubin 1.64 H, AST 48 H, ALT 17, Alkaline Phosphatase 132 H, Troponin I High Sens 55 H, Total Protein 7.1, Albumin 2.8 L, Globulin 4.3 H 11/20/23 14:20: Potassium 6.5 H* Imaging Radiology Impression Chest X-Ray 11/20/23 13:41 IMPRESSION: No radiographic evidence of acute cardiopulmonary disease and unchanged when compared to 07/17/2020. Electronically Signed: Josafat Painter MD at 14:27 EST , Assessment & Plan Assessment/Plan (1) Hyperkalemia: (2) SOB (shortness of breath): PLAN: Plan 53-year-old female with history of severe tricuspid regurgitation, right-sided heart failure with significant ascites, post kidney transplant in 2019 on cyclosporine and mycophenolate mofetil, NANCY on CKD suspected cardiorenal syndrome, type 2 diabetes, SLE presents with features of chest pain and ST-T changes in the setting of hyperkalemia. She is in anasarca secondary to her severe tricuspid regurgitation, she was not deemed to be a candidate for percutaneous repair and was being planned for surgical intervention at [place]. 1. Severe hyperkalemia: In the setting of elevated BUN, creatinine, recent spironolactone this is likely related to medication with NANCY on CKD. This could be worsening her symptoms because of the elevated ST changes and needs further monitoring. -Will recheck potassium -Albuterol based therapies ordered -Continuous telemetry monitoring -Will hold off any spironolactone for now 2. Heart failure secondary to severe tricuspid valve regurgitation: She has been evaluated at , based on right heart catheterization and was diagnosed with tricuspid valve regurgitation resulting in heart failure. -Will repeat echo to assess cardiac function -Further evaluation as an outpatient as she is being planned for tricuspid repair at [place] -Continue bumetanide 2 mg daily 3. Status post kidney transplant: Continue cyclosporine and mycophenolate mofetil for now -Nephrology consult regarding continuation of medications for prior transplant 4. SLE: Continue home medications including hydroxyzine and prednisone 5 mg 5. Hypertension: Continue bumetanide, Coreg and hydralazine as needed 6. Depression: Continue venlafaxine 7. Type 2 diabetes on insulin pump, monitor A1c, TSH levels Charges/Coding Visit Charges Inpatient E&M: 70905 Init Hosp L3
[2023-11-20] MEDS: Insulin Lispro 10 UNIT in Syringe 0 ML 6 UNIT IV (15:19)
[2023-11-20] MEDS: Dextrose 50%-Water 25 GM/50 ML DISP.SYRIN IV (15:19)
[2023-11-20] MEDS: 0.9% Normal Saline (500mL Bag) 250 ML 999 ML IV (15:27)
[2023-11-20] MEDS: Albuterol 2.5 MG/3 ML VIAL.NEB. 10 MG INHALATION (15:27)
[2023-11-20 15:32] LABS: Reflex Troponin-HS? (from REC) Y
[2023-11-20 16:19] LABS: Troponin-I HS 49 pg/mL (3.0-54.0)
[2023-11-20] MEDS: Sodium Polystyrene Sulfonate 15 GM/60 ML UDC 30 GM PO (16:30)
[2023-11-20] MEDS: 0.9% Normal Saline (500mL Bag) 500 ML 999 ML IV (16:48)
--- NOTE | 2023-11-20 18:41 | ECHOD_ITS ---
Reason For Study: CHF Procedure This was a 2D Doppler, Color Flow transthoracic echocardiogram. Exam performed portable in patient room. Left Ventricle Normal LV size. Concentric left ventricular hypertrophy. The estimated ejection fraction is 60 %. Unable to assess diastolic dysfunction. No regional wall motion abnormalities noted. Right Ventricle Normal RV size. Normal systolic function. Atria Normal left atrium. The right atrium is mildly enlarged. No doppler evidence for ASD. Mitral Valve There is no mitral valve stenosis. Trivial mitral valve insufficiency. Tricuspid Valve There is no tricuspid stenosis. Moderate (2+) tricuspid valve insufficiency. Pulmonary artery systolic pressure is 20-25 mmHg. Aortic Valve Trisinus/trileaflet aortic valve. There is no aortic stenosis. No aortic valve insufficiency. Pulmonic Valve There is no pulmonic valvular stenosis. No pulmonic valve insufficiency. Great Vessels Normal aortic root. Pericardium/Pleural No pericardial effusion. MMode/2D Measurements & Calculations LVIDd: 4.1 cm IVSd: 2.0 cm Ao root diam: 2.6 cm LVIDs: 3.2 cm LVPWd: 1.3 cm FS: 20.9 % LAV(MOD-bp): 58.2 ml LVAd ap4: 21.8 cm2 SV(MOD-sp4): 30.3 ml LAV(MOD-bp) Indexed: 30.1 ml/m2 LVLd ap4: 7.0 cm LAV(MOD-sp2): 48.5 ml EDV(MOD-sp4): 59.4 ml LAV(MOD-sp4): 53.2 ml EDV(sp4-el): 57.8 ml LVAs ap4: 14.3 cm2 LVLs ap4: 6.1 cm ESV(MOD-sp4): 29.1 ml ESV(sp4-el): 28.6 ml EF(MOD-sp4): 51.0 % EF(sp4-el): 50.6 % SV(sp4-el): 29.2 ml LA A4 area: 21.7 cm2 LA dimension(2D): 3.3 cm RA A4 area: 23.7 cm2 TAPSE: 1.6 cm Doppler Measurements & Calculations MV E max mike: 72.9 cm/sec MV V2 max: 69.7 cm/sec Ao V2 max: 146.3 cm/sec MV max P.0 mmHg Ao max P.6 mmHg MV V2 mean: 38.1 cm/sec Ao V2 mean: 97.9 cm/sec MV mean P.71 mmHg Ao mean P.5 mmHg MV V2 VTI: 16.9 cm Ao V2 VTI: 26.8 cm AV (velocity ratio): 0.72 LV V1 max: 109.9 cm/sec LV V1 max P.0 mmHg LV V1 mean P.6 mmHg LV V1 mean: 72.0 cm/sec LV V1 VTI: 19.2 cm ECHO/Echo Complete Interpretation Summary The estimated ejection fraction is 60 %. The right atrium is mildly enlarged. Trivial mitral valve insufficiency. Ordering Physician: Irina Queen Referring Physician: Mitchell Bowen Chi Performed By: Ernestina Guerra RCS
[2023-11-20 19:27] LABS: Hemoglobin A1c 5.9 % (3.8-5.6)
[2023-11-20] MEDS: Albuterol 2.5 MG/3 ML VIAL.NEB. 20 MG INHALATION (20:24)
[2023-11-20] MEDS: Calcium Gluconate IV 3 GM in Syringe 1 EACH IV (20:30)
[2023-11-20] MEDS: 0.9% Saline Lock 10 ML Syringe IV (20:31)
[2023-11-20 20:33] LABS: Potassium 5.4 mmol/L (3.5-5.1)
[2023-11-20] MEDS: Mycophenolate Mofetil 250 MG Capsule 500 MG PO (22:59)
[2023-11-20] MEDS: Pregabalin 75 MG Capsule 150 MG PO (22:59)
[2023-11-20] MEDS: Mirtazapine 15 MG Tablet 30 MG PO (22:59)
[2023-11-20] MEDS: Ipratropium Bromide 0.06% NASAL SPRAY 1 SPRAY NASAL (23:00)
[2023-11-21 05:08] LABS: Absolute Neutrophil Count 4.1 X10^3/uL (2.0-7.7); Basophil# 0.03 X10^3/uL; Basophil% 0.5 % (0-1); Eosinophil# 0.11 X10^3/uL; Eosinophils% 1.7 % (0-5); Hematocrit 44.2 % (37-47); Hemoglobin 13.6 g/dL (12.0-15.0); Lymphocyte % 15.7 % (19-41); Mean Corp Hgb Conc 30.8 g/dL (32-36); Mean Corpuscular Hgb 29.6 pg (27.0-32.0); Mean Corpuscular Volume 96.1 fL (81-99); Mean Platelet Vol. 10.2 fl (6.2-12.0); Monocyte% 17.2 % (0-10); NRBC Flagged by Analyzer 0.3 % (0-5); Neutrophil # 4.11 X10^3/uL (2.7-7.7); Neutrophil % 64.4 % (47-70); Platelet Count 160 K/mm3 (150-450); RBC Distribution Width CV 18.6 % (11.6-14.6); RBC Distribution Width SD 63.8 fl (35.1-43.9); White Blood Count 6.4 K/mm3 (4.4-11.0)
[2023-11-21 05:15] VITALS: BP 85/51; PULSE 80; RESP 16; TEMP 36.9; O2SAT 100
[2023-11-21 05:18] LABS: International Normalized Ratio 1.3; Prothrombin Time (Protime)PT. 15.9 SECONDS (11.7-14.9)
[2023-11-21 05:30] VITALS: BP 108/84; PULSE 74; RESP 18; TEMP 36.9; O2SAT 98
[2023-11-21 05:41] LABS: ALB/GLOB Ratio 0.7 RATIO (0.9-2.4); AST(SGOT) 17 U/L (15-37); Alanine Aminotransfer ALT/SGPT 13 U/L (13-56); Albumin, Serum 2.8 g/dL (3.2-5.0); Alkaline Phosphatase 132 U/L (45-117); Anion Gap 10 (5-15); BUN 55 mg/dL (7-18); Bilirubin, Direct 1.67 mg/dL (0.00-0.30); Calcium,Total 9.3 mg/dL (8.5-10.1); Chloride 105 mmol/L (98-107); Creatinine, Serum 3.43 mg/dL (0.55-1.02); EST Glomerular Filtration Rate 15 mL/min (>60); Est Glom Filt Rate - Afr Amer 18 mL/min (>60); Estimated Creatinine Clearance 20.47 ml/min; Globulin 4.2 g/dL (2.2-4.2); Glucose 117 mg/dL (74-106); Magnesium 2.7 mg/dL (1.6-2.6); Phosphorus 5.2 mg/dL (2.5-4.9); Potassium 4.8 mmol/L (3.5-5.1); Sodium Level 137 mmol/L (136-145); Thyroid Stim Hormone (TSH) 2.77 uIU/mL (0.358-3.74)
[2023-11-21 08:12] VITALS: BP 109/66; PULSE 76; RESP 16; TEMP 36.7; O2SAT 96
[2023-11-21] MEDS: Hydroxychloroquine 200 MG Tablet PO (08:28)
[2023-11-21] MEDS: Ipratropium Bromide 0.06% NASAL SPRAY 1 SPRAY NASAL ×2 (08:28→20:15)
[2023-11-21] MEDS: predniSONE 5 MG Tablet PO (08:28)
[2023-11-21] MEDS: Carvedilol 12.5 MG Tablet PO ×2 (08:28→17:24)
[2023-11-21] MEDS: Bumetanide 2 MG Tablet PO (08:29)
[2023-11-21] MEDS: Venlafaxine XR 75 MG Capsule PO (08:29)
[2023-11-21] MEDS: Heparin Injection (Vial) 5,000 UNIT/ML VIAL 5000 UNIT SC ×2 (08:29→20:15)
[2023-11-21] MEDS: Loratadine 10 MG Tablet 5 MG PO (08:29)
[2023-11-21] MEDS: Pregabalin 75 MG Capsule 150 MG PO ×2 (08:30→20:20)
--- NOTE | 2023-11-21 09:59 | PN.HOSP_ITS ---
Reason for Visit Reason for Visit: Diagnoses Hyperkalemia (11/20/23) Shortness of breath (11/20/23) Subjective Subjective Patient is a 53-year-old lady with history of lupus nephritis status post kidney transplant in 2019 cyclosporine and mycophenolate presented with generalized weakness as well as nausea. Patient was found to have severe hyperkalemia on admission admitted to a monitored bed for further management Objective Data Objective Data Vital Signs: Vital Signs Temp Pulse Resp BP Pulse Ox O2 Del Method 98.1 F 76 16 109/66 96 Room Air 11/21/23 08:12 11/21/23 08:12 11/21/23 08:12 11/21/23 08:12 11/21/23 08:12 11/21/23 08:12 Oxygen Delivery Method Room Air Weight: 85.049 kg Body Mass Index (BMI) 32.1 Intake & Output: Intake and Output for Last 24 Hours 11/19/23 11/20/23 11/22/23 23:59 23:59 00:59 Intake Total 1260 / 1260 360 / 360 Balance 1260 / 1260 360 / 360 Lab / Micro Data 11/21/23 04:57 11/21/23 04:51 Labs: Laboratory Results - last 24 hr 11/20/23 13:29: WBC 8.4, RBC 4.95, Hgb 14.8, Hct 47.9 H, MCV 96.8, MCH 29.9, MCHC 30.9 L, RDW Std Deviation 64.5 H, RDW Coeff of Jah 18.8 H, Plt Count 158, MPV 11.0, Immature Gran % (Auto) 0.600, Neut % (Auto) 70.4 H, Lymph % (Auto) 13.9 L, [place] % (Auto) 13.8 H, Eos % (Auto) 0.7, Baso % (Auto) 0.6, Absolute Neuts (auto) 5.9, Absolute Lymphs (auto) 1.17, Nucleated RBC % 0.2, PT 16.5 H, INR 1.3, APTT 33.7, Sodium 132 L, Potassium 7.6 H*, Chloride 102, Carbon Dioxide 22.0, Anion Gap 8, BUN 56 H, Creatinine 3.59 H, Estim Creat Clear Calc 19.98, Est GFR (MDRD) Af Amer 17 L, Est GFR (MDRD) Non-Af 14 L, BUN/Creatinine Ratio 15.6, Glucose 118 H, Hemoglobin A1c 5.9 H, Calcium 9.1, Total Bilirubin 2.80 H, Direct Bilirubin 1.64 H, AST 48 H, ALT 17, Alkaline Phosphatase 132 H, Troponin I High Sens 55 H, Total Protein 7.1, Albumin 2.8 L, Globulin 4.3 H 11/20/23 14:20: Potassium 6.5 H* 11/20/23 15:40: Troponin I High Sens 49 11/20/23 20:09: Potassium 5.4 H 11/21/23 04:51: Sodium 137, Potassium 4.8, Chloride 105, Carbon Dioxide 22.0, An ion Gap 10, BUN 55 H, Creatinine 3.43 H, Estim Creat Clear Calc 20.47, Est GFR (MDRD) Af Amer 18 L, Est GFR (MDRD) Non-Af 15 L, BUN/Creatinine Ratio 16.0, Glucose 117 H, Calcium 9.3, Phosphorus 5.2 H, Magnesium 2.7 H, Total Bilirubin 2.20 H, Direct Bilirubin 1.67 H, AST 17, ALT 13, Alkaline Phosphatase 132 H, Total Protein 7.0, Albumin 2.8 L, Globulin 4.2, Albumin/Globulin Ratio 0.7 L, TSH 2.77 11/21/23 04:57: WBC 6.4, RBC 4.60, Hgb 13.6, Hct 44.2, MCV 96.1, MCH 29.6, MCHC 30.8 L, RDW Std Deviation 63.8 H, RDW Coeff of Jah 18.6 H, Plt Count 160, MPV 10.2, Immature Gran % (Auto) 0.500, Neut % (Auto) 64.4, Lymph % (Auto) 15.7 L, [place] % (Auto) 17.2 H, Eos % (Auto) 1.7, Baso % (Auto) 0.5, Absolute Neuts (auto) 4.1, Absolute Lymphs (auto) 1.00, Nucleated RBC % 0.3, PT 15.9 H, INR 1.3 Radiography Diagnostic Testing: Radiology Impression Chest X-Ray 11/20/23 13:41 IMPRESSION: No radiographic evidence of acute cardiopulmonary disease and unchanged when compared to 07/17/2020. Electronically Signed: Josafat Plummer MD at 14:27 EST , Physical Exam Narrative GENERAL: Somewhat lethargic but arousable HEENT: Atraumatic; normocephalic EYES; Anicteric, Normal Conjunctiva NECK; supple, normal thyroid, RESPIRATORY: Diminished to auscultation CARDIOVASCULAR: Regular S1 S2, GI: soft, normoactive bowel sounds, : No Renal angle tenderness; EXTREMITIES: No edema, no clubbing, MUSCULOSKELETAL: no muscle wasting NEURO: Awake; no lateralizing signs. SKIN: No Rash PSYCH; Flat affect Assessment & Plan Assessment/Plan (1) Hyperkalemia: (2) SOB (shortness of breath): PLAN: Plan Patient is a 53-year-old lady with history of lupus nephritis status post kidney transplant in 2019 cyclosporine and mycophenolate presented with generalized weakness as well as nausea. Patient was found to have severe hyperkalemia on admission admitted to a monitored bed for further management 1. Severe hypokalemia ? Patient potassium on admission was 7.6 treated aggressively potassium as of this morning 4.8 2. Valvular heart disease ? With history of CVA tricuspid valve regurgitation with subsequent right-sided heart failure with significant ascites 3. History of lupus nephritis ? Status post kidney transplant in 2019 cyclosporine and mycophenolate. Consult was placed to nephrology on admission 4. Systemic lupus ? Patient is on prednisone, hydroxychloroquine and cevimeline; continued 5. Hypertension - Blood pressure controlled, home medications continued with dose adjustment as needed 6. Chronic right-sided heart failure secondary to severe tricuspid valve regurgitation ? Patient is on bumetanide 7. Diabetes mellitus type 1 ? Patient is on insulin pump patient to manage 8.Sjogren's syndrome 9. Depression ? Symptoms controlled with venlafaxine did continue 10. DVT prophylaxis ? SC heparin Time spent in the patient's overall evaluation,decision-making process, review of diagnostic data, adjustment of management, discussion with other providers, nursing nursing and ancillary staff involved in patient's care documentation, 55 Minutes
[2023-11-21] MEDS: Mycophenolate Mofetil 250 MG Capsule 500 MG PO ×2 (10:15→20:15)
--- NOTE | 2023-11-21 10:28 | CON.PCM.RE_ITS ---
Assessment & Plan Assessment/Plan (1) Hyperkalemia: PLAN: This is a complicated case patient. Patient with multiple medical issues as well as status post disease donor renal transplant less than 4 years ago with previous acute rejection's x 2. She has underlying CKD with baseline creatinine of 1.8-2.2. I see that her creatinine started to go up about a month ago and differential and situation is quite broad. Ranging from prerenal azotemia, as well as acute rejection. Her hyperkalemia is related to worsening kidney function, as well as spironolactone that she has been taking for her heart failure. Situation is complicated by evolving liver insufficiency with rising bilirubin, worsening ascites. I am not sure if her depressed sensorium is due to uremia, evolving liver failure, or untreated sleep apnea with CO2 retention. 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 Over the last year her baseline creatinine has been between 1.8 and 2.2, but last month it came back at a higher level at 3. Her antirejection regimen includes prednisone, CellCept and cyclosporine. When she came over it yesterday, on admission her creatinine was up to 3.6, potassium was 7.2 and she was aggressively treated with Kayexalate resulting with potassium of 4.5 today. Creatinine has not changed much. Patient is complicated by some liver cirrhosis with recurrent ascites, status post paracentesis several times. Unfortunately her mental status does not allow me to collect full information. She has definitely higher bilirubin on presentation yesterday. She does have significant ascites as of now. She states she has got significant sleep apnea but was unable to to use CPAP machine on a daily basis. 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 Lupus Lupus nephritis Narcolepsy Non-rheumatic tricuspid valve insufficiency Non-smoker Nonrheumatic mitral (valve) insufficiency Obstructive sleep apnea Osteopenia Post-menopausal Prolonged QT interval Right ventricular dilation Secondary pulmonary arterial hypertension Shortness of breath on exertion SLE (systemic lupus erythematosus) Uses wheelchair Vitamin D deficiency Walker as ambulation aid Wears dentures Wears glasses Home Medications ipratropium bromide 42 mcg (0.06 %) nasal spray 1 spray intranasal BID allergies 07/08/20 [History Last Taken 10/31/23] prednisone 5 mg tablet 5 mg PO DAILY steroid for lupus 07/08/20 [History Last Taken 10/31/23] levocetirizine 5 mg tablet 5 mg PO DAILY ALLERGIES 07/17/20 [History Last Taken 10/31/23] blood sugar diagnostic #10 ea 11/04/20 [History Last Taken Unknown] lancets 33 gauge #100 ea 11/04/20 [History Last Taken Unknown] pregabalin 150 mg capsule 150 mg PO BID neuropathy 03/31/21 [History Last Taken 10/31/23] OneTouch Verio test strips (blood sugar diagnostic) #360 ea 04/17/21 [Rx Last Taken Unknown] hydroxychloroquine 200 mg tablet 200 mg PO DAILY antimalarial 07/08/21 [History Last Taken 10/31/23] hydralazine 25 mg tablet 25 mg PO 4X/DAY PRN Hypertension 08/26/21 [History Last Taken 10/31/23] oxycodone 5 mg tablet 5 mg PO DAILY PRN PRN Pain 08/26/21 [History Last Taken 11/01/23] acetaminophen 500 mg tablet 500 mg PO Q6H PRN pain/fever 11/25/21 [History Last Taken Unknown] ketoconazole 2 % shampoo 1 applic topical DAILY hair loss 01/04/22 [History Last Taken 10/31/23] desvenlafaxine succinate 100 mg tablet,extended release 24 hr 100 mg PO DAILY ANTIDEPRESSANT 02/19/22 [History Last Taken 10/31/23] Dexcom G6 Clinical Dermatologist (blood-glucose meter,continuous) #1 ea 03/04/22 [Rx Last Taken Unknown] cevimeline 30 mg capsule (Evoxac) 1 cap PO TID dry mouth 05/05/22 [History Last Taken 10/31/23] BD Ultra-Fine Mini Pen Needle 31 gauge x 3/16 (pen needle, diabetic) #100 ea 06/30/22 [Rx Last Taken Unknown] alpha lipoic acid 600 mg capsule 600 mg PO BID neuropathy 07/23/22 [History Last Taken 10/31/23] carvedilol 25 mg tablet 12.5 mg PO BID 08/14/22 [History Last Taken 10/31/23] mycophenolate mofetil 250 mg capsule (CellCept) 500 mg PO BID anti rejection 03/04/23 [History Last Taken 10/31/23] cyclosporine 25 mg capsule 75 mg PO BID autoimmune suppresant 03/05/23 [History Last Taken 10/31/23] lancets 33 gauge (OneTouch Delica Lancets) 03/05/23 [History Last Taken Unknown] mirtazapine 15 mg tablet 30 mg PO QHS sleep 03/05/23 [History Last Taken 10/31/23] Lactobacillus acidophilus (Acidophilus capsule) 10 mg PO DAILY probiotic 04/01/23 [History Last Taken 10/31/23] bumetanide 1 mg tablet 2 mg PO DAILY fluid retention 04/01/23 [History Last Taken 10/31/23] clindamycin 1.2 % (1 % base)-benzoyl peroxide 5 % topical gel 1 applic topical DAILY acne 04/01/23 [History Last Taken 10/31/23] betamethasone, augmented 0.05 % topical cream 1 applic topical Q12H excema 06/09/23 [History Last Taken 10/31/23] diclofenac sodium 1 % topical gel (Voltaren Arthritis Pain) 2 g topical ONCE PRN pain 06/09/23 [History Last Taken 10/31/23] Humalog U-100 Insulin 100 unit/mL subcutaneous solution (insulin lispro) 100 unit subcut DAILY diabetes #90 mL 09/30/23 [Rx Last Taken Unknown] insulin pump cart,automated,BT (Omnipod 5 G6 Pods (Gen 5) subcutaneous cartridge) #45 ea 09/30/23 [Rx Last Taken Unknown] Dexcom G6 Transmitter (blood-glucose transmitter) #1 ea 10/07/23 [Rx Last Taken Unknown] Dexcom G6 Sensor (blood-glucose sensor) #3 ea 10/25/23 [Rx Last Taken Unknown] dextroamphetamine-amphetamine ER 15 mg 24hr capsule,extend release (Adderall XR) 15 mg PO DAILY NARCOLEPSY 10/29/23 [History Last Taken 10/31/23] spironolactone 25 mg tablet 12.5 mg PO DAILY diuretic 11/20/23 [History Last Taken Unknown] Allergy/AdvReac Type Severity Reaction Status Date / Time LONG Inhibitors Allergy Angioedema Verified 11/20/23 15:05 adhesive Allergy Rash Verified 11/20/23 15:05 lisinopril Allergy Angioedema Verified 11/20/23 15:05 Sulfa (Sulfonamide Allergy Rash Verified 11/20/23 15:05 Antibiotics) sulfamethoxazole Allergy Rash Verified 11/20/23 15:05 [From Bactrim] trimethoprim [From Bactrim] Allergy Rash Verified 11/20/23 15:05 tuberculin, purified protein Allergy Unknown Verified 11/20/23 15:05 deriva Family History Mother Hypertension Kidney disease ALS (amyotrophic lateral sclerosis) Father Heart disease Hypertension Kidney disease Diabetes Brother Melanoma Surgical History Hip replacement planned History of biopsy History of dilation and curettage History of esophagogastroduodenoscopy (EGD) History of left heart catheterization (03/08/20) History of right hip replacement Hx of right heart catheterization Kidney transplant recipient port removed revision of right hip arthroplasty (05/10/19) S/P colonoscopy S/P lymph node biopsy S/P nasal polypectomy Status post carpal tunnel release Status post total hip replacement, bilateral Social History (Updated 11/20/23 @ 18:14 by Traci Estrada) household members: family housing: house Smoking Status: Never smoker alcohol intake: never substance use type: does not use caffeine: No what type of physical activity do you participate in: other details: PT seatbelt use: always do you feel safe at home: Yes additional social history: Single ROS Review of Systems ROS Unobtainable: due to mental condition and due to mental status; Denies due to encephalopathy, due to endotracheal tube or other ENT HEENT: Reports dry mouth Cardiovascular Cardiovascular: Denies chest pain, claudication, diaphoresis, dyspnea on exertion, edema, irregular heart rhythm, leg edema, orthopnea, palpitations or syncope Gastrointestinal Gastrointestinal: Reports anorexia, diarrhea and vomiting Musculoskeletal Musculoskeletal: Reports abnormal gait Integumentary Integumentary: Reports dry skin and pruritus Neurologic Neurologic: Reports tremor(s) Psychiatric Psychiatric: Reports confusion Endocrine Endocrinology: Reports fatigue Hematologic/Lymphatic Hematologic/Lymphatic: Reports anemia Physical Exam Narrative Middle-age female with somewhat depressed sensorium She appears sleepy, but wakes up when stimulated, answers simple questions and appears to be appropriate She has truncal obesity Oral mucosa is dry Lungs are relatively clear Heart is distant Abdomen is distended with large amount of ascites, nontender, she has bowel sounds, kidney transplant is located in the right lower quadrant, no tenderness Lower extremities without edema, muscle wasting She has prominent asterixis Neuro Neuro Narrative: She has asterixis Psych Memory / Cognition: cognition impaired Lab / Micro Data Attestation: I reviewed the patient's lab results. 11/21/23 04:57 11/21/23 04:51 Labs: Laboratory Results - last 24 hr 11/20/23 13:29: WBC 8.4, RBC 4.95, Hgb 14.8, Hct 47.9 H, MCV 96.8, MCH 29.9, MCHC 30.9 L, RDW Std Deviation 64.5 H, RDW Coeff of Jah 18.8 H, Plt Count 158, MPV 11.0, Immature Gran % (Auto) 0.600, Neut % (Auto) 70.4 H, Lymph % (Auto) 13 .9 L, Orange % (Auto) 13.8 H, Eos % (Auto) 0.7, Baso % (Auto) 0.6, Absolute Neuts (auto) 5.9, Absolute Lymphs (auto) 1.17, Nucleated RBC % 0.2, PT 16.5 H, INR 1.3, APTT 33.7, Sodium 132 L, Potassium 7.6 H*, Chloride 102, Carbon Dioxide 22.0, Anion Gap 8, BUN 56 H, Creatinine 3.59 H, Estim Creat Clear Calc 19.98, Est GFR (MDRD) Af Amer 17 L, Est GFR (MDRD) Non-Af 14 L, BUN/Creatinine Ratio 15.6, Glucose 118 H, Hemoglobin A1c 5.9 H, Calcium 9.1, Total Bilirubin 2.80 H, Direct Bilirubin 1.64 H, AST 48 H, ALT 17, Alkaline Phosphatase 132 H, Troponin I High Sens 55 H, Total Protein 7.1, Albumin 2.8 L, Globulin 4.3 H 11/20/23 14:20: Potassium 6.5 H* 11/20/23 15:40: Troponin I High Sens 49 11/20/23 20:09: Potassium 5.4 H 11/21/23 04:51: Sodium 137, Potassium 4.8, Chloride 105, Carbon Dioxide 22.0, Anion Gap 10, BUN 55 H, Creatinine 3.43 H, Estim Creat Clear Calc 20.47, Est GFR (MDRD) Af Amer 18 L, Est GFR (MDRD) Non-Af 15 L, BUN/Creatinine Ratio 16.0, Glucose 117 H, Calcium 9.3, Phosphorus 5.2 H, Magnesium 2.7 H, Total Bilirubin 2.20 H, Direct Bilirubin 1.67 H, AST 17, ALT 13, Alkaline Phosphatase 132 H, Total Protein 7.0, Albumin 2.8 L, Globulin 4.2, Albumin/Globulin Ratio 0.7 L, TSH 2.77 11/21/23 04:57: WBC 6.4, RBC 4.60, Hgb 13.6, Hct 44.2, MCV 96.1, MCH 29.6, MCHC 30.8 L, RDW Std Deviation 63.8 H, RDW Coeff of Jah 18.6 H, Plt Count 160, MPV 10.2, Immature Gran % (Auto) 0.500, Neut % (Auto) 64.4, Lymph % (Auto) 15.7 L, Orange % (Auto) 17.2 H, Eos % (Auto) 1.7, Baso % (Auto) 0.5, Absolute Neuts (auto) 4.1, Absolute Lymphs (auto) 1.00, Nucleated RBC % 0.3, PT 15.9 H, INR 1.3 Imaging Radiology Impression Chest X-Ray 11/20/23 13:41 IMPRESSION: No radiographic evidence of acute cardiopulmonary disease and unchanged when compared to 07/17/2020. Electronically Signed: Josafat Painter MD at 14:27 EST ,
[2023-11-21 10:54] LABS: Bedside Glucose 146 mg/dL (74-106)
[2023-11-21 12:13] LABS: Allen Test Positive; Base Excess -1 mmol/L (-2 to +2); Bicarbonate 24.7 mmol/L (22-26); Blood Gas Specimen Type ART; Mode Not entered; O2 Delivery Device Room Air; PO2 46 mmHG (75-100); SITE R Brach; SO2 80 % (95-99); Total Carbon Dioxide 26 mmol/L; pCO2 43.2 mmHg (35-45); pH 7.37 (7.35-7.45)
[2023-11-21 13:06] LABS: Bedside Glucose 184 mg/dL (74-106)
[2023-11-21] MEDS: 0.9% Normal Saline (1000mL) 1,000 ML 100 ML IV ×2 (14:35→23:59)
[2023-11-21] MEDS: 0.9% Saline Lock 10 ML Syringe IV (14:35)
[2023-11-21 14:40] VITALS: BP 94/64; PULSE 77; RESP 16; TEMP 36.8; O2SAT 97
[2023-11-21 17:22] VITALS: BP 116/77; PULSE 76
[2023-11-21] MEDS: Mirtazapine 15 MG Tablet 30 MG PO (20:20)
[2023-11-21 20:30] VITALS: BP 112/71; PULSE 77; RESP 18; TEMP 36.9; O2SAT 97
[2023-11-22] VITALS (8 sets, daily range): BP systolic 93–135; BP diastolic 57–80; PULSE 71–89; RESP 10–17; TEMP 36.6–36.8; O2SAT 95–99
--- NOTE | 2023-11-22 02:10 | CPS ---
2L bled in with CPAP
[2023-11-22] MEDS: Mycophenolate Mofetil 250 MG Capsule 500 MG PO ×2 (09:13→22:14)
[2023-11-22] MEDS: predniSONE 5 MG Tablet PO (09:14)
[2023-11-22] MEDS: Hydroxychloroquine 200 MG Tablet PO (09:14)
[2023-11-22] MEDS: Ipratropium Bromide 0.06% NASAL SPRAY 1 SPRAY NASAL ×2 (09:14→22:11)
[2023-11-22] MEDS: Heparin Injection (Vial) 5,000 UNIT/ML VIAL 5000 UNIT SC ×2 (09:15→22:12)
[2023-11-22] MEDS: Venlafaxine XR 75 MG Capsule PO (09:15)
[2023-11-22] MEDS: Loratadine 10 MG Tablet 5 MG PO (09:16)
[2023-11-22 10:35] LABS: Anion Gap 7 (5-15); BUN 51 mg/dL (7-18); Calcium,Total 8.5 mg/dL (8.5-10.1); Chloride 107 mmol/L (98-107); Creatinine, Serum 2.55 mg/dL (0.55-1.02); EST Glomerular Filtration Rate 21 mL/min (>60); Est Glom Filt Rate - Afr Amer 26 mL/min (>60); Estimated Creatinine Clearance 27.54 ml/min; Glucose 152 mg/dL (74-106); Sodium Level 140 mmol/L (136-145)
--- NOTE | 2023-11-22 10:40 | CASEMGMT ---
RN CM Face to Face with patient for initial transition planning/care coordination assessment. RN CM introduced self and role at [facility]. Patient lying in bed, alert and oriented. Patient willing to participate in assessment and is able to answer all questions appropriately. Care providers, pharmacy, and demographics verified. PCP: Andrés Specialists: transplant nephrology; Everette, pain; Damon, online media director; Linus, ENT; Savannah, GI; Preferred Pharmacy: [facility] Insurance: [employer] Prescription Benefit: yes Living Will/HPOA: none LNOK: brother, sister Living Arrangements: Patient lives with brother in a 2 story home with bed and bath on first floor. 2 steps to enter the home. Patient states she is independent, has aides to assist with bathing Transportation: brother, [employer], insurance. DME/HHC: Patient has cane, walker, cpap, pulse ox, and glucometer at home. Patient has had HHC in the past, could not recall agency. Patient has been to [place] and [facility] in the past. Patient is active with Waiver program with Silvia as her CM. Patient has aides from [employer] 3x per week for 3hrs per day. Patient wishes to discharge home, will monitor progress with therapy and need for HHC. Patient states she has no further needs or concerns at this time. CM to follow for discharge planning needs that may arise. Disposition Plan: Patient to discharge home with family support and follow-up plans in place. Will monitor for HHC pending therapy. Agata BORERRO, RN, CM
[2023-11-22] MEDS: 0.9% Normal Saline (1000mL) 1,000 ML 100 ML IV (10:50)
[2023-11-22] MEDS: Pregabalin 75 MG Capsule 150 MG PO (10:51)
--- NOTE | 2023-11-22 12:54 | PCM.PN.REN ---
Subjective Subjective Resting in bed. Appears more alert and oriented today. Complains of feeling tired. Objective Data Objective Data Vital Signs: Vital Signs Temp Pulse Resp BP Pulse Ox O2 Del Method O2 Flow Rate 98.0 F 71 16 93/67 97 Room Air 4 11/22/23 08:55 11/22/23 08:55 11/22/23 08:55 11/22/23 08:55 11/22/23 08:55 11/22/23 10:58 11/22/23 02:45 FiO2 28 11/22/23 02:09 Oxygen Flow Rate (L/min) 4 Oxygen Delivery Method Room Air Weight: 85.049 kg Body Mass Index (BMI) 32.1 Intake & Output: Intake and Output for Last 24 Hours 11/20/23 11/21/23 11/22/23 22:59 23:59 23:59 Intake Total 1979 / 1979 Output Total 850 / 850 Balance 1130 / 1130 Lab / Micro Data 11/21/23 04:57 11/22/23 10:05 Labs: Laboratory Results - last 24 hr 11/21/23 12:47: POC Glucose 184 H 11/22/23 10:05: Sodium 140, Potassium 4.0, Chloride 107, Carbon Dioxide 26.0, Anion Gap 7, BUN 51 H, Creatinine 2.55 H, Estim Creat Clear Calc 27.54, Est GFR (MDRD) Af Amer 26 L, Est GFR (MDRD) Non-Af 21 L, BUN/Creatinine Ratio 20.0, Glucose 152 H, Calcium 8.5 Radiography Diagnostic Testing: Radiology Impression Echocardiogram 11/20/23 18:41 Interpretation Summary The estimated ejection fraction is 60 %. The right atrium is mildly enlarged. Trivial mitral valve insufficiency. Ordering Physician: Irina Queen Referring Physician: Mitchell Bowen Chi Performed By: Ernestina Guerra RCS Physical Exam Narrative Alert and oriented, no apparent distress S1, S2, RRR Lung sounds clear anteriorly and posteriorly Abdomen soft, nontender No edema Assessment & Plan Assessment/Plan (1) Acute kidney injury: (2) CKD (chronic kidney disease) stage 4, GFR 15-29 ml/min: (3) Hyperkalemia: PLAN: Plan - NANCY superimposed on CKD stage 3b/4a status post donor kidney transplant. Baseline serum creatinine has been between 1.8 to 2.2 mg/dL (to note lab work on November 04, 2023 serum creatinine 3.45). On admission creatinine 3.59 and today creatinine is 2.55 mg/dL. Patient is on gentle IV fluids. Will continue IV fluids for another day, decrease rate. Continue immunosuppressants as ordered. 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 Good urine output. -Hyperkalemia; continue off Aldactone (per patient she states she was started on Aldactone a little over a week ago). K+ 7.6 on admission, received potassium lowering medications and SPS. Today K+ 4.0. - history of right sided heart failure and recurrent ascites s/p paracentesis. Ammonia level in am. Echo EF 60%, trivial mitral valve insufficiency, moderate tricuspid valve insufficiency, unable to assess diastolic dysfunction
--- NOTE | 2023-11-22 13:44 | PN_ITS ---
Subjective Subjective Patient seen and examined. She had no active complaints. She wanted to know why she had episode of shortness of breath. She denied any coughing or chest pain, palpitations, dizziness, nausea or vomiting. Review of systems otherwise negative. Her creatinine is down to 2.55 today. Objective Data Objective Data Vital Signs: Vital Signs Temp Pulse Resp BP Pulse Ox O2 Del Method O2 Flow Rate 98.0 F 71 16 93/67 97 Room Air 4 11/22/23 08:55 11/22/23 08:55 11/22/23 08:55 11/22/23 08:55 11/22/23 08:55 11/22/23 10:58 11/22/23 02:45 FiO2 28 11/22/23 02:09 Oxygen Flow Rate (L/min) 4 Oxygen Delivery Method Room Air Weight: 187 lb 8 oz Body Mass Index (BMI) 32.1 Intake & Output: Intake and Output for Last 24 Hours 11/20/23 11/21/23 11/22/23 22:59 23:59 23:59 Intake Total 2258.33 / 2258.33 Output Total 850 / 850 Balance 1408.33 / 1408.33 Lab / Micro Data 11/21/23 04:57 11/22/23 10:05 Labs: Laboratory Results - last 24 hr 11/22/23 10:05: Sodium 140, Potassium 4.0, Chloride 107, Carbon Dioxide 26.0, Anion Gap 7, BUN 51 H, Creatinine 2.55 H, Estim Creat Clear Calc 27.54, Est GFR (MDRD) Af Amer 26 L, Est GFR (MDRD) Non-Af 21 L, BUN/Creatinine Ratio 20.0, Glucose 152 H, Calcium 8.5 Radiography Diagnostic Testing: Radiology Impression Echocardiogram 11/20/23 18:41 Interpretation Summary The estimated ejection fraction is 60 %. The right atrium is mildly enlarged. Trivial mitral valve insufficiency. Ordering Physician: Irina Queen Referring Physician: Mitchell Bowen Chi Performed By: Ernestina Guerra RCS Physical Exam Const alert Constitutional Narrative: lethargic but easily arousable. General Appearance: cooperative HEENT normocephalic Eyes PERRL and EOMs intact bilaterally Neck no lymphadenopathy and supple Lymph Lymphatic: no lymphadenopathy noted and no lymphedema noted Resp normal respiratory effort, normal air movement and clear to auscultation bilaterally Cardio regular rate, regular rhythm, S1 normal heart sound, S2 normal heart sound and no murmurs Peripheral Pulses: pulses 2+ throughout GI normal to inspection, nondistended, normoactive bowel sounds, soft to palpation and non-tender Extremity normal capillary refill, no clubbing, cyanosis or edema and no calf tenderness General Extremity: no tenderness to palpation of joints or extremities Skin General Skin Exam: no breakdown Neuro CN's II-XII intact bilaterally, no focal motor deficits, no sensory deficits noted and deep tendon reflexes 2+ bilaterally Motor Exam: strength 5/5 throughout and general weakness Psych thought process normal and cooperative Mood & Affect: flat affect Assessment & Plan Assessment/Plan (1) Acute kidney injury: (2) Hyperkalemia: PLAN: Plan # Severe hyperkalemia: This is resolved with treatment. #History of lupus nephritis with NANCY on CKD * Creatinine is down to 2.55. Had a kidney transplant in 2019 it is on cyclosporine mycophenolate. * Nephrology on board. * Has had 3 previous episodes of acute resection of the kidney x 2. * Nephrology on board and concern for acute rejection again in light of her kidneys have not trended upwards on admission. * continue immunosuppressants. #Acute metabolic encephalopathy * Patient has episodic confusion. She is arousable but gets more lethargic. Concern is if it is due to her uremia from worsening kidney function or untreated sleep apnea with CO2 retention evolving liver failure. * #SLE: On prednisone, hydroxychloroquine and cevimeline. #Hypertension: #Chronic right-sided heart failure due to severe tricuspid valve regurgitation * On Bumex. 2D echo ordered and pending. * Spironolactone discontinued due to hyperkalemia * 2D echo showed EF of 60% with mildly enlarged right atrium and trivial mitral valve insufficiency. #Type 1 diabetes mellitus: On insulin pump #History of Sjogren syndrome: Stable #Depression: On venlafaxine DVT prophylaxis: Heparin Charges/Coding Visit Charges Inpatient E&M: 41804 Subs Hosp L2
[2023-11-22 14:36] LABS: AST(SGOT) 16 U/L (15-37); Alanine Aminotransfer ALT/SGPT 10 U/L (13-56); Albumin, Serum 2.5 g/dL (3.2-5.0); Alkaline Phosphatase 128 U/L (45-117); Bilirubin, Direct 0.94 mg/dL (0.00-0.30); Globulin 3.9 g/dL (2.2-4.2); Protein, Total 6.4 g/dL (6.4-8.2)
[2023-11-22] MEDS: Carvedilol 12.5 MG Tablet PO (18:46)
[2023-11-22] MEDS: 0.9% Normal Saline (1000mL) 1,000 ML 75 ML IV (22:10)
[2023-11-22] MEDS: Acetaminophen 500 MG Tablet PO (22:10)
[2023-11-22] MEDS: Mirtazapine 15 MG Tablet 30 MG PO (22:13)
[2023-11-23] MEDS: oxyCODONE 5 MG Tablet PO (00:57)
[2023-11-23 03:35] VITALS: RESP 10; O2SAT 100
[2023-11-23 03:45] VITALS: BP 109/77; PULSE 77; RESP 16; TEMP 36.5; O2SAT 100
[2023-11-23 07:10] LABS: Absolute Lymphocyte Count 0.95 X10^3/uL (0.83-4.51); Absolute Neutrophil Count 2.8 X10^3/uL (2.0-7.7); Basophil# 0.04 X10^3/uL; Basophil% 0.8 % (0-1); Eosinophil# 0.13 X10^3/uL; Eosinophils% 2.6 % (0-5); Hematocrit 41.1 % (37-47); Hemoglobin 12.7 g/dL (12.0-15.0); Lymphocyte # 0.95 X10^3/ul (0.83-4.51); Mean Corp Hgb Conc 30.9 g/dL (32-36); Mean Corpuscular Volume 97.2 fL (81-99); Mean Platelet Vol. 10.3 fl (6.2-12.0); Monocyte# 1.07 X10^3/uL; Monocyte% 21.4 % (0-10); NRBC Flagged by Analyzer 0 % (0-5); Neutrophil # 2.79 X10^3/uL (2.7-7.7); Neutrophil % 55.8 % (47-70); Platelet Count 134 K/mm3 (150-450); RBC Distribution Width CV 18.2 % (11.6-14.6); RBC Distribution Width SD 61.9 fl (35.1-43.9); Red Blood Count 4.23 M/mm3 (4.2-5.4)
[2023-11-23 07:44] LABS: Anion Gap 6 (5-15); BUN 39 mg/dL (7-18); BUN/Creat Ratio 21.8 RATIO (10-20); Calcium,Total 8.4 mg/dL (8.5-10.1); Chloride 109 mmol/L (98-107); Creatinine, Serum 1.79 mg/dL (0.55-1.02); EST Glomerular Filtration Rate 32 mL/min (>60); Est Glom Filt Rate - Afr Amer 38 mL/min (>60); Estimated Creatinine Clearance 39.23 ml/min; Glucose 92 mg/dL (74-106); Sodium Level 137 mmol/L (136-145)
[2023-11-23 08:16] VITALS: BP 115/76; PULSE 68; RESP 18; TEMP 36.8; O2SAT 97
[2023-11-23] MEDS: Ipratropium Bromide 0.06% NASAL SPRAY 1 SPRAY NASAL (08:19)
[2023-11-23] MEDS: predniSONE 5 MG Tablet PO (08:19)
[2023-11-23] MEDS: Loratadine 10 MG Tablet 5 MG PO (08:19)
[2023-11-23] MEDS: Bumetanide 2 MG Tablet PO (08:20)
[2023-11-23] MEDS: Carvedilol 12.5 MG Tablet PO (08:20)
[2023-11-23] MEDS: Venlafaxine XR 75 MG Capsule PO (08:20)
[2023-11-23] MEDS: Hydroxychloroquine 200 MG Tablet PO (08:20)
[2023-11-23] MEDS: Mycophenolate Mofetil 250 MG Capsule 500 MG PO (08:22)
[2023-11-23] MEDS: Heparin Injection (Vial) 5,000 UNIT/ML VIAL 5000 UNIT SC (08:23)
[2023-11-23 08:30] VITALS: O2SAT 96
[2023-11-23 08:43] LABS: AST(SGOT) 16 U/L (15-37); Alanine Aminotransfer ALT/SGPT 10 U/L (13-56); Albumin, Serum 2.5 g/dL (3.2-5.0); Alkaline Phosphatase 125 U/L (45-117); Bilirubin, Direct 1.16 mg/dL (0.00-0.30); Globulin 4.1 g/dL (2.2-4.2); Protein, Total 6.6 g/dL (6.4-8.2)
[2023-11-23 08:46] VITALS: O2SAT 97
--- NOTE | 2023-11-23 10:38 | PN.RENAL_ITS ---
Subjective Subjective No new complaints. Objective Data Objective Data Vital Signs: Vital Signs Temp Pulse Resp BP Pulse Ox O2 Del Method O2 Flow Rate 98.2 F 68 18 115/76 97 Room Air 2 11/23/23 08:16 11/23/23 08:16 11/23/23 08:16 11/23/23 08:16 11/23/23 08:46 11/23/23 09:23 11/22/23 21:05 FiO2 2 11/23/23 03:35 Oxygen Flow Rate (L/min) 2 Oxygen Delivery Method Room Air Weight: 85.049 kg Body Mass Index (BMI) 32.1 Intake & Output: Intake and Output for Last 24 Hours 11/21/23 11/22/23 11/23/23 23:59 23:59 23:59 Intake Total 3979.58 / 3979.58 Output Total 1050 / 1050 150 / 150 Balance 2929.58 / 2929.58 -150 / -150 Lab / Micro Data 11/23/23 06:58 11/23/23 06:58 Labs: Laboratory Results - last 24 hr 11/22/23 10:05: Total Bilirubin 1.30 H, Direct Bilirubin 0.94 H, AST 16, ALT 10 L, Alkaline Phosphatase 128 H, Total Protein 6.4, Albumin 2.5 L, Globulin 3.9 11/23/23 06:58: WBC 5.0, RBC 4.23, Hgb 12.7, Hct 41.1, MCV 97.2, MCH 30.0, MCHC 30.9 L, RDW Std Deviation 61.9 H, RDW Coeff of Jah 18.2 H, Plt Count 134 L, MPV 10.3, Immature Gran % (Auto) 0.400, Neut % (Auto) 55.8, Lymph % (Auto) 19.0, [place] % (Auto) 21.4 H, Eos % (Auto) 2.6, Baso % (Auto) 0.8, Absolute Neuts (auto) 2.8, Absolute Lymphs (auto) 0.95, Nucleated RBC % 0, Sodium 137, Potassium 4.0, Chloride 109 H, Carbon Dioxide 22.0, Anion Gap 6, BUN 39 H, Creatinine 1.79 H, Estim Creat Clear Calc 39.23, Est GFR (MDRD) Af Amer 38 L, Est GFR (MDRD) Non-Af 32 L, BUN/Creatinine Ratio 21.8 H, Glucose 92, Calcium 8.4 L, Total Bilirubin 1.50 H, Direct Bilirubin 1.16 H, AST 16, ALT 10 L, Alkaline Phosphatase 125 H, Total Protein 6.6, Albumin 2.5 L, Globulin 4.1 Radiography Diagnostic Testing: Radiology Impression Echocardiogram 11/20/23 18:41 Interpretation Summary The estimated ejection fraction is 60 %. The right atrium is mildly enlarged. Trivial mitral valve insufficiency. Ordering Physician: Irina Queen Referring Physician: Mitchell Bowen Chi Performed By: Ernestina Guerra RCS Physical Exam Narrative Alert and oriented, no apparent distress S1, S2, RRR Lung sounds clear anteriorly and posteriorly Abdomen soft, nontender No edema Neuro Neuro Narrative: She has asterixis Psych Memory / Cognition: cognition impaired Assessment & Plan Assessment/Plan (1) Acute kidney injury: (2) CKD (chronic kidney disease) stage 4, GFR 15-29 ml/min: (3) Hyperkalemia: PLAN: Plan - NANCY superimposed on CKD stage 3b/4a status post donor kidney transplant. Baseline serum creatinine has been between 1.8 to 2.2 mg/dL. On admission creatinine 3.59. Creatinine is down to 1.6, close to baseline NANCY is likely related to volume issues. Stop IV fluids today Congestive heart failure. Review of records from [facility]. She has wide-open tricuspid regurgitation. She was admitted at [facility] for clipping transvenously but the procedure was aborted due to her anatomical issues. She says she is looking at a clinical trial at [facility] for a transvenous tricuspid valve replacement. Waiting for their call back. For diuretics, she is on Bumex 2 mg once a day and spironolactone after 3 to 4 days. Advised her to follow-up with [facility] From a nephrology standpoint, can be discharged
--- NOTE | 2023-11-23 11:03 | PCM.DC.SUM ---
Providers Date of Admission: 11/20/23 Date of Discharge: 11/23/23 Primary Care Physician: Dr. Mitchell Bowen MD Consultations 11/20/23 18:29 Consult: Nephrology Routine Consulting Provider: Irina Queen Reason for Consult: Severe Hyperkalemia EMERGENT Consult: No MD Notified: Yes Date Notified: 11/20/23 Time Notified: 18:34 Method of Notification: Answering Service Reason For Visit: SOB Diagnosis Discharge Diagnosis (1) Acute kidney injury: Status: Acute Code(s): N17.9 - Acute kidney failure, unspecified (2) CKD (chronic kidney disease) stage 4, GFR 15-29 ml/min: Status: Chronic Code(s): N18.4 - Chronic kidney disease, stage 4 (severe) (3) Hyperkalemia: Status: Acute Code(s): E87.5 - Hyperkalemia Plan # Severe hyperkalemia: This is resolved with treatment. #History of lupus nephritis with NANCY on CKD Creatinine is down to 2.55. Had a kidney transplant in 2019 it is on cyclosporine mycophenolate. Nephrology on board. Has had 3 previous episodes of acute resection of the kidney x 2. Nephrology on board and concern for acute rejection again in light of her kidneys have not trended upwards on admission. continue immunosuppressants. #Acute metabolic encephalopathy Patient has episodic confusion. She is arousable but gets more lethargic. Concern is if it is due to her uremia from worsening kidney function or untreated sleep apnea with CO2 retention evolving liver failure. #SLE: On prednisone, hydroxychloroquine and cevimeline. #Hypertension: #Chronic right-sided heart failure due to severe tricuspid valve regurgitation On Bumex. 2D echo ordered and pending. Spironolactone discontinued due to hyperkalemia 2D echo showed EF of 60% with mildly enlarged right atrium and trivial mitral valve insufficiency. #Type 1 diabetes mellitus: On insulin pump #History of Sjogren syndrome: Stable #Depression: On venlafaxine DVT prophylaxis: Heparin Medications at Discharge Home Medications ipratropium bromide 42 mcg (0.06 %) nasal spray 1 spray intranasal BID allergies 07/08/20 prednisone 5 mg tablet 5 mg PO DAILY steroid for lupus 07/08/20 levocetirizine 5 mg tablet 5 mg PO DAILY ALLERGIES 07/17/20 blood sugar diagnostic #10 ea 11/04/20 lancets 33 gauge #100 ea 11/04/20 pregabalin 150 mg capsule 150 mg PO BID neuropathy 03/31/21 OneTouch Verio test strips (blood sugar diagnostic) #360 ea 04/17/21 hydroxychloroquine 200 mg tablet 200 mg PO DAILY antimalarial 07/08/21 hydralazine 25 mg tablet 25 mg PO 4X/DAY PRN Hypertension 08/26/21 oxycodone 5 mg tablet 5 mg PO DAILY PRN PRN Pain 08/26/21 acetaminophen 500 mg tablet 500 mg PO Q6H PRN pain/fever 11/25/21 ketoconazole 2 % shampoo 1 applic topical DAILY hair loss 01/04/22 desvenlafaxine succinate 100 mg tablet,extended release 24 hr 100 mg PO DAILY ANTIDEPRESSANT 02/19/22 Dexcom G6 Leaf Blender (blood-glucose meter,continuous) #1 ea 03/04/22 cevimeline 30 mg capsule (Evoxac) 1 cap PO TID dry mouth 05/05/22 BD Ultra-Fine Mini Pen Needle 31 gauge x 3/16 (pen needle, diabetic) #100 ea 06/30/22 alpha lipoic acid 600 mg capsule 600 mg PO BID neuropathy 07/23/22 carvedilol 25 mg tablet 12.5 mg PO BID 08/14/22 mycophenolate mofetil 250 mg capsule (CellCept) 500 mg PO BID anti rejection 03/04/23 cyclosporine 25 mg capsule 75 mg PO BID autoimmune suppresant 03/05/23 lancets 33 gauge (OneTouch Delica Lancets) 03/05/23 mirtazapine 15 mg tablet 30 mg PO QHS sleep 03/05/23 Lactobacillus acidophilus (Acidophilus capsule) 10 mg PO DAILY probiotic 04/01/23 bumetanide 1 mg tablet 2 mg PO DAILY fluid retention 04/01/23 clindamycin 1.2 % (1 % base)-benzoyl peroxide 5 % topical gel 1 applic topical DAILY acne 04/01/23 betamethasone, augmented 0.05 % topical cream 1 applic topical Q12H excema 06/09/23 diclofenac sodium 1 % topical gel (Voltaren Arthritis Pain) 2 g topical ONCE PRN pain 06/09/23 Humalog U-100 Insulin 100 unit/mL subcutaneous solution (insulin lispro) 100 unit subcut DAILY diabetes #90 mL 09/30/23 insulin pump cart,automated,BT (Omnipod 5 G6 Pods (Gen 5) subcutaneous cartridge) #45 ea 09/30/23 Dexcom G6 Transmitter (blood-glucose transmitter) #1 ea 10/07/23 Dexcom G6 Sensor (blood-glucose sensor) #3 ea 10/25/23 dextroamphetamine-amphetamine ER 15 mg 24hr capsule,extend release (Adderall XR) 15 mg PO DAILY NARCOLEPSY 10/29/23 Hospital Course Operations None Procedures None Summary of Care Provided Minutes Spent on Discharge: 55 Hospital Course: Patient is a 53-year-old female with a past medical history as outlined which includes history of ESRD s/p kidney transplant, on cyclosporine and mycophenolate as well as heart failure with reduced ejection fraction in the setting of severe tricuspid valve insufficiency and mitral valve insufficiency. She was admitted through the ED on 11/20/2023 with complaints of weakness and dizziness which have been going on for several days. The EMS did out of hospital EKG which showed possible ST elevation in the anterior leads. STEMI alert was therefore called. However line therapist on-call reviewed EKG and did not think that she had ST elevation VT. Repeat EKG also did not show this was STEMI alert was canceled. Labs done on admission showed potassium of 7.6 though there was a moderate amount of hemolysis. She was admitted and managed for severe hyperkalemia in the setting of elevated creatinine which was thought to be due to NANCY on CKD. Nephrology was consulted. Spironolactone was discontinued. She was given potassium depleting cocktail. She was also hydrated with IV fluids. Her shortness of breath improved and she felt much better. Her creatinine gradually trended down. Hospital course was complicated by episodes of lethargy which was thought to be due to her narcolepsy. Patient's creatinine trended down to close to normal and hyperkalemia resolved. Her liver enzymes had also gone up and so there was concern about possible kidney rejection but the elevated liver enzymes also improved significantly. Patient remained stable and was discharged home on 11/23/2023. She is to follow-up with her primary care doctor and follow-up with nephrology within 1 to 2 weeks. In light of her hyperkalemia, patient was counseled that she would need to stop her spironolactone. Patient was called on his cell phone at [phone] by this hospitalist and counseled that she would need to stop her spironolactone until she followed up with nephrology and was given the okay to resume it or otherwise. Patient expressed understanding of this. Patient seen and examined prior to discharge. She had no complaints and had an uneventful night. Review of systems otherwise negative. Labs and vitals reviewed. Home medication reviewed and reconciled. Physical Exam Const alert, oriented x3 and no apparent distress General Appearance: cooperative, comfortable and well kempt Orientation / Consciousness: awake HEENT normocephalic, head/scalp atraumatic and hearing grossly normal bilaterally Mouth: oral and palatal mucosa normal Eyes PERRL and EOMs intact bilaterally Neck no lymphadenopathy and supple Lymph Lymphatic: no lymphadenopathy noted and no lymphedema noted Resp normal respiratory effort, normal air movement and clear to auscultation bilaterally Cardio regular rate, regular rhythm, S1 normal heart sound, S2 normal heart sound and no murmurs Peripheral Pulses: pulses 2+ throughout GI normal to inspection, nondistended, normoactive bowel sounds, soft to palpation and non-tender Extremity normal to inspection, full ROM, normal capillary refill, no clubbing, cyanosis or edema and no calf tenderness General Extremity: no tenderness to palpation of joints or extremities Skin no rashes or lesions noted General Skin Exam: no breakdown Neuro oriented x3, CN's II-XII intact bilaterally, moves all extremities, no focal motor deficits, no sensory deficits noted and deep tendon reflexes 2+ bilaterally Sensorium / Orientation: awake and alert Motor Exam: strength 5/5 throughout and general weakness Psych thought process normal and cooperative Weight / BMI Weight Weight: 187 lb 8 oz Body Mass Index (BMI) 32.1 ABG / Lab / Microbiology Data 11/23/23 06:58 11/23/23 06:58 Laboratory: Laboratory Results - last 24 hr 11/22/23 10:05: Total Bilirubin 1.30 H, Direct Bilirubin 0.94 H, AST 16, ALT 10 L, Alkaline Phosphatase 128 H, Total Protein 6.4, Albumin 2.5 L, Globulin 3.9 11/23/23 06:58: WBC 5.0, RBC 4.23, Hgb 12.7, Hct 41.1, MCV 97.2, MCH 30.0, MCHC 30.9 L, RDW Std Deviation 61.9 H, RDW Coeff of Jah 18.2 H, Plt Count 134 L, MPV 10.3, Immature Gran % (Auto) 0.400, Neut % (Auto) 55.8, Lymph % (Auto) 19.0, Lewis % (Auto) 21.4 H, Eos % (Auto) 2.6, Baso % (Auto) 0.8, Absolute Neuts (auto) 2.8, Absolute Lymphs (auto) 0.95, Nucleated RBC % 0, Sodium 137, Potassium 4.0, Chloride 109 H, Carbon Dioxide 22.0, Anion Gap 6, BUN 39 H, Creatinine 1.79 H, Estim Creat Clear Calc 39.23, Est GFR (MDRD) Af Amer 38 L, Est GFR (MDRD) Non-Af 32 L, BUN/Creatinine Ratio 21.8 H, Glucose 92, Calcium 8.4 L, Total Bilirubin 1.50 H, Direct Bilirubin 1.16 H, AST 16, ALT 10 L, Alkaline Phosphatase 125 H, Total Protein 6.6, Albumin 2.5 L, Globulin 4.1 Radiography Diagnostic Testing: Radiology Impression Echocardiogram 11/20/23 18:41 Interpretation Summary The estimated ejection fraction is 60 %. The right atrium is mildly enlarged. Trivial mitral valve insufficiency. Ordering Physician: Irina Queen Referring Physician: Mitchell Bowen Chi Performed By: Ernestina Guerra RCS D/C Instructions Discharge Diet: Low fat / Low cholesterol Discharge Activity: Return to Normal Activity Weight Bearing Status: Weight bearing as tolerated Call your doctor if you observe: Fever of 101 or Higher, Shortness of breath, Dizziness, Swelling in the ankles, Chest pain and Increased palpitations (irregular heartbeat) Meaningful Use Info Meaningful Use Diagnoses (Choose all that apply): None applicable Discharge Plan Admission Admit Date/Time: 11/20/23 15:34 Primary Reason for Your Visit: Nancy on CKD Attending Provider: Mariza Finch Primary Care Provider: Mitchell Bowen Chi Consulting Providers: Irina Queen; Flako Camejo Instructions Patient Instructions: Acute Kidney Failure Dc Discharge Orders/Prescriptions Prescriptions: Continued ipratropium bromide 42 mcg (0.06 %) spray,non-aerosol 1 spray INTRANASAL BID (DME) blood sugar diagnostic Strip See Rx Instructions .ROUTE .MEDSUPPLY Qty: 10 Patient Comments: use 1 TEST STRIP to TEST BLOOD SUGAR daily Rx Instructions: As directed (DME) lancets 33 gauge misc See Rx Instructions .ROUTE .MEDSUPPLY Qty: 100 Patient Comments: use 1 LANCET to TEST BLOOD SUGAR daily Rx Instructions: As directed pregabalin 150 mg capsule 150 mg PO BID carvedilol 25 mg tablet 12.5 mg PO BID Patient Comments: dr order to take 12.5 d/t recent dizziness and hypotension hydralazine 25 mg tablet 25 mg PO 4X/DAY PRN (Reason: Hypertension) oxycodone 5 mg tablet 5 mg PO DAILY PRN PRN (Reason: Pain) acetaminophen 500 mg tablet 500 mg PO Q6H PRN (Reason: pain/fever) mirtazapine 15 mg tablet 30 mg PO QHS desvenlafaxine succinate 100 mg tablet extended release 24 hr 100 mg PO DAILY cevimeline [Evoxac] 30 mg capsule 1 cap PO TID mycophenolate mofetil [CellCept] 250 mg capsule 500 mg PO BID bumetanide 1 mg tablet 2 mg PO DAILY Acidophilus Capsule 10 mg PO DAILY clindamycin-benzoyl peroxide 1.2 %(1 % base) -5 % gel 1 applic topical DAILY (DME) lancets [OneTouch Delica Lancets] 33 gauge misc See Rx Instructions .ROUTE .MEDSUPPLY Rx Instructions: 4x/day betamethasone, augmented 0.05 % cream 1 applic topical Q12H diclofenac sodium [Voltaren Arthritis Pain] 1 % gel 2 g topical ONCE PRN (Reason: pain) Rx Instructions: apply to single elbow, wrist or hand; for hand includes palm/fingers/back of hand hydroxychloroquine 200 mg tablet 200 mg PO DAILY Patient Comments: lupus prednisone 5 mg tablet 5 mg PO DAILY levocetirizine 5 MG tablet 5 mg PO DAILY ketoconazole 2 % Shampoo 1 applic TOPICAL DAILY cyclosporine 25 mg capsule 75 mg PO BID alpha lipoic acid 600 mg Capsule 600 mg PO BID dextroamphetamine-amphetamine [Adderall XR] 15 mg capsule,extended release 24hr 15 mg PO DAILY (DME) OneTouch Verio test strips Strip See Rx Instructions .ROUTE .MEDSUPPLY Qty: 360 3RF Rx Instructions: As directed up to 4x daily to monitor glucose levels (DME) Dexcom G6 Leaf Blender Misc See Rx Instructions .Route Qty: 1 0RF Rx Instructions: As directed (DME) pen needle, diabetic [BD Ultra-Fine Mini Pen Needle] 31 gauge x 3/16 needle See Rx Instructions .ROUTE .MEDSUPPLY Qty: 100 3RF Rx Instructions: 3x/day insulin lispro [Humalog U-100 Insulin] 100 unit/mL solution 100 unit subcut DAILY Qty: 90 1RF Patient Comments: 3 unit basal rate, bolus with meals based on carb intake Rx Instructions: via pump (DME) Omnipod 5 G6 Pods (Gen 5) Cartridge See Rx Instructions .Route Qty: 45 1RF Rx Instructions: 1 pod q 48 hours (DME) Dexcom G6 Transmitter Device See Rx Instructions .Route Qty: 1 1RF Rx Instructions: 1 q 90 days (DME) Dexcom G6 Sensor Device See Rx Instructions .Route Qty: 3 3RF Rx Instructions: 1 sensor q 10 days Discontinued spironolactone 25 mg tablet 12.5 mg PO DAILY Referrals / Follow Up: Ministerio Taylor MD [Med Staff - Consulting] - Within 1 Week (Dr. Taylor office will contact you to schedule an appointment) Mitchell Bowen Chi, MD [Primary Care Provider] - 11/24/23 3:00 pm Disposition Disposition (needs filled in before D/C Order can be placed): Home, Self Care Charges/Coding Visit Charges Inpatient E&M: 95904 Disch Hosp >30min
--- NOTE | 2023-11-23 14:02 | CASEMGMT ---
Discharge Planning A list of?HH providers including quality and resource use data and consistent with the patient's preferred geographic region, medical needs, and insurance network was created in [facility] Guide.? This list was provided to the RN LISSA. Gabriella Garces, Discharge Planning Asst.
[2023-11-23 14:30] VITALS: BP 110/72; PULSE 102; RESP 17; TEMP 36.3; O2SAT 100
--- NOTE | 2023-11-23 15:03 | CASEMGMT ---
Patient has order for discharge. RN LISSA updated by therapy that patient would benefit from HHC. RN CM in to discuss HHC with patient, list provided. Patient prefers [facility]. Patient denied further needs at discharge. RN CM called and made referral to [facility] and they are able to accept patient. RN CM updated patient regarding [facility] acceptance. Patient had no further questions or concerns.
[2023-11-24 17:07] LABS: Cyclosporine 234 ng/mL (100-400)
[2023-11-24 17:22] LABS: Hemoglobin A1c 5.8 % (3.8-5.6)
[2023-11-24 17:24] LABS: Microalbumin,Random Urine 10.9 mg/L (NO RANGE EST.)
[2023-11-24 17:24] LABS: Cholesterol 105 mg/dL (200); High Density Lipoprotein 45 mg/dL; Thyroid Stim Hormone (TSH) 3.58 uIU/mL (0.358-3.74); Triglycerides 78 mg/dL; Very Low Density Lipoprotein 16 mg/dL (5-40)
== END 2023-11-23 15:30 | disposition home or self-care (01) | DRG 641 ==
LOC: ED 15:11 → PCU 16:17
PROVIDERS: Internal Medicine; Internal Medicine Nephrology; Admitting Provider Internal Medicine; Emergency Provider Emergency Medicine; PCP Family Medicine Geriatric Medicine; Visit Provider Student in an Organized Health Care Education/Training Program
DX: E87.5 Hyperkalemia (principal); N17.9 Acute kidney failure, unspecified; R18.8 Other ascites; I13.0 Hypertensive heart and chronic kidney disease with heart failure and stage 1 through stage 4 chronic kidney disease, or unspecified chronic kidney disease; N18.4 Chronic kidney disease, stage 4 (severe); Z94.0 Kidney transplant status; E10.22 Type 1 diabetes mellitus with diabetic chronic kidney disease; M32.9 Systemic lupus erythematosus, unspecified; I50.812 Chronic right heart failure; I36.1 Nonrheumatic tricuspid (valve) insufficiency; F32.A Depression, unspecified; G47.419 Narcolepsy without cataplexy; E55.9 Vitamin D deficiency, unspecified; Z79.4 Long term (current) use of insulin; E87.6 Hypokalemia; G47.33 Obstructive sleep apnea (adult) (pediatric); M35.00 Sjogren syndrome, unspecified; M85.80 Other specified disorders of bone density and structure, unspecified site; Z79.52 Long term (current) use of systemic steroids; Z78.0 Asymptomatic menopausal state; Z97.2 Presence of dental prosthetic device (complete) (partial); R42 Dizziness and giddiness; Z96.41 Presence of insulin pump (external) (internal)
CPT/HCPCS: 36415; 36600; 71045; 80048; 80053; 80061; 80076; 80158; 82043; 82248; 82803; 82962; 83036; 83735; 84100; 84132; 84443; 84484; 85025; 85610; 85730; 93005; 93306; 94002; 94640; 94660; 97162; 97166; 97530; 99284; A4216; J0612

== ENCOUNTER → 2023-11-25 | Outpatient (CLI) | payer MEDICARE, MEDICAID, SELFPAY ==
--- NOTE | 2023-11-25 09:17 | US_ITS ---
PROCEDURE: Ultrasound guided paracentesis. DATE OF EXAMINATION: November 25, 2023.. INDICATION: Female, 53 years old. Ascites. PHYSICIAN: Jonathan Garcia M.D. TECHNIQUE: The risks, benefits, and alternatives to the procedure were explained to the patient. The specific risks of bleeding, infection, and damage to bowel were detailed and accepted. Witnessed informed consent was obtained. The abdomen was ultrasonographically surveyed. An appropriate pocket of fluid was identified at the right lower quadrant. The skin were cleaned and prepped in the usual sterile fashion. Using ultrasound guidance, the peritoneal cavity was accessed with a 5-Montenegrin paracentesis needle/catheter system. The trocar was removed. A total of 2100 ml of thu-colored fluid were removed from the peritoneal cavity. The catheter was removed and a sterile dressing was applied. The procedure was well tolerated. US/Paracentesis with US IMPRESSION: Ultrasound guided paracentesis. Electronically Signed: Jonathan Garcia MD at 12:48 EDT ,
[2023-11-25 09:32] VITALS: BP 115/60; PULSE 78; RESP 16; TEMP 36.6; O2SAT 97
[2023-11-25] MEDS: Lidocaine 2% (20 ml mdv) 20 ML Vial INFILT (09:36)
[2023-11-25 09:47] VITALS: BP 102/61; PULSE 72; RESP 16; O2SAT 95
[2023-11-25 10:00] VITALS: BP 97/56; PULSE 72; RESP 16; O2SAT 97
== END | disposition home or self-care (01) ==
LOC: US 09:15
PROVIDERS: PCP Family Medicine Geriatric Medicine; Referring Provider Family Medicine Geriatric Medicine; Visit Provider Family Medicine Geriatric Medicine
DX: R18.8 Other ascites (principal)
CPT/HCPCS: 49083

== ENCOUNTER → 2023-12-02 | Outpatient (CLI) | payer MEDICARE, MEDICAID, SELFPAY ==
[2023-12-02 09:26] VITALS: BP 124/74; PULSE 83; RESP 18; O2SAT 100
[2023-12-02] MEDS: Lidocaine 2% (20 ml mdv) 20 ML Vial INFILT (09:30)
[2023-12-02 09:38] VITALS: BP 115/74; PULSE 84; RESP 18; O2SAT 96
--- NOTE | 2023-12-02 10:09 | PCM.OP.PRO ---
Procedure Report Date of Procedure: 12/02/23 Assessment & Plan Assessment/Plan (1) Ascites: QUALIFIERS: Ascites type: other type Qualified Code(s): R18.8 - Other ascites PLAN: PROCEDURE: Ultrasound guided paracentesis ORDERING PROVIDER: Dr. Bowen INDICATION: Female, 53 years old. Ascites. PROVIDER: YAMIL Lock TECHNIQUE: The risks, benefits, and alternatives to the procedure were explained to the patient. The specific risks of bleeding, infection, and damage to bowel were detailed and accepted. Witnessed informed consent was obtained. The abdomen was ultrasonographically surveyed. An appropriate pocket of fluid was identified in the right lower quadrant. The skin was prepped with chlorhexidine and sterile field established. 2% lidocaine was used for local anesthetic. Using ultrasound guidance, the peritoneal cavity was accessed with a 5-Austrian paracentesis needle/catheter system. The trocar was removed. A total of 300 ml of dark yellow colored fluid was removed from the peritoneal cavity. The catheter was removed and a sterile dressing was applied. The procedure was well tolerated. IMPRESSION: Successful ultrasound-guided paracentesis with right lower quadrant access site. Procedures Radiology Radiology US Procedures: [id number] Paracentesis
== END | disposition home or self-care (01) ==
PROVIDERS: PCP Family Medicine Geriatric Medicine; Referring Provider Family Medicine Geriatric Medicine; Visit Provider Family Medicine Geriatric Medicine
DX: R18.8 Other ascites (principal); R68.83 Chills (without fever)
CPT/HCPCS: 49083; 87631

== ENCOUNTER → 2023-12-10 | Outpatient (CLI) | payer MEDICARE, MEDICAID, SELFPAY ==
[2023-12-10 10:38] VITALS: BP 119/65; PULSE 81; RESP 16; TEMP 36.5; O2SAT 95
[2023-12-10] MEDS: Lidocaine 2% (20 ml mdv) 20 ML Vial INFILT (10:43)
[2023-12-10 10:45] VITALS: BP 96/59; PULSE 16; RESP 78; O2SAT 95
[2023-12-10 11:00] VITALS: BP 93/62; PULSE 78; RESP 16; O2SAT 95
--- NOTE | 2023-12-10 11:13 | PCM.OP.PRO ---
Procedure Report Date of Procedure: 12/10/23 Assessment & Plan Assessment/Plan (1) Ascites: QUALIFIERS: Ascites type: other type Qualified Code(s): R18.8 - Other ascites PLAN: PROCEDURE: Ultrasound guided paracentesis ORDERING PROVIDER: Dr. Bowen INDICATION: Female, 53 years old. Ascites. PROVIDER: YAMIL Lock TECHNIQUE: The risks, benefits, and alternatives to the procedure were explained to the patient. The specific risks of bleeding, infection, and damage to bowel were detailed and accepted. Witnessed informed consent was obtained. The abdomen was ultrasonographically surveyed. An appropriate pocket of fluid was identified in the right lower quadrant. The skin was prepped with chlorhexidine and sterile field established. 2% lidocaine was used for local anesthetic. Using ultrasound guidance, the peritoneal cavity was accessed with a 5-Cypriot paracentesis needle/catheter system. The trocar was removed. A total of 1700 ml of thu colored fluid was removed from the peritoneal cavity. The catheter was removed and a sterile dressing was applied. The procedure was well tolerated. IMPRESSION: Successful ultrasound-guided paracentesis with right lower quadrant access site. Procedures Radiology Radiology US Procedures: [id number] Paracentesis
== END | disposition home or self-care (01) ==
LOC: US 10:20
PROVIDERS: PCP Family Medicine Geriatric Medicine; Referring Provider Family Medicine Geriatric Medicine; Visit Provider Family Medicine Geriatric Medicine
DX: R18.8 Other ascites (principal)
CPT/HCPCS: 49083

== ENCOUNTER 2023-12-13 07:10 | Day surgery (SDC) | payer MEDICARE, MEDICAID, SELFPAY ==
[2023-12-13] VITALS (7 sets, daily range): BP systolic 85–140; BP diastolic 57–90; PULSE 77–80; RESP 16–18; TEMP 36.1–36.3; O2SAT 96–99; BMI 30.4
[2023-12-13] MEDS: Lactated Ringers 1,000 ML 15 ML IV (07:58)
--- NOTE | 2023-12-13 08:00 | RAD_ITS ---
STUDY: Cervical Spine, Intraprocedural Exam REASON FOR EXAM: Female, 64 years old. CERVICAL RADIO FREQ ABLATION TECHNIQUE: 7 fluoroscopic images of the lumbar spine were obtained on a C-arm for ablation. The examination was performed for documentation. COMPARISON: No relevant prior comparison study available FINDINGS: AP views of the cervical spine were obtained on a C-arm for ablation. The examination was performed for documentation only. The fluoroscopy time was 15 seconds. The radiation dose is 2.27 mGy. RAD/Cerv Spine 4 or 5 Views IMPRESSION: Intraprocedural exam as described above. Electronically Signed: Ben Kenyon MD at 12:34 EDT ,
[2023-12-13] MEDS: MethylPREDNISolone Acetate 40 MG/ML Vial (09:25)
[2023-12-13] MEDS: Lidocaine 1% (30 ml sdv) 30 ML Vial (09:25)
--- NOTE | 2023-12-13 09:43 | PCM.OPRPT ---
Report of Operation Date of Procedure: 12/13/23 Description of Surgical Findings:: PREOPERATIVE DIAGNOSIS: Cervical spondylosis, cervical degenerative disc disease, cervical facet arthropathy POSTOPERATIVE DIAGNOSIS: Cervical spondylosis, cervical degenerative disc disease, cervical facet arthropathy PROCEDURE PERFORMED: Right-sided cervical radiofrequency ablation of the medial branch at C4, C5, C6, and C7. ANESTHESIA: MAC. BLOOD LOSS: Minimal. COMPLICATIONS: None. DESCRIPTION OF PROCEDURE: History and physical of today was reviewed. Risks and benefits of the procedure were explained. The patient understood and agreed to proceed. Informed consent was obtained. IV inserted per routine protocol. The patient was taken to the operating room and placed in the prone position with a pillow positioned underneath the chest. The neck area was prepped and draped in a sterile fashion using iodine x3. Under fluoroscopy guidance on an AP view, the C4 through C7 vertebral bodies were visualized. The skin and subcutaneous tissue was anesthetized with approximately 10 mL of 1% lidocaine using a 25-gauge regular needle. Under direct visualization on fluoroscopy on a lateral view, using a 21-gauge 10-cm with a 10-mm curved active-tip radiofrequency ablation needle, the needle was passed through the skin. The tip of the needle was maneuvered and directed towards the epiphyseal junction of each corresponding vertebra, starting on the right C4, ending on the right C7, passing through the C5 and C6. Once the tip of the needle was at the vicinity of the medial branch and at the middle of the trapezoid on the lateral view, the stylette of each needle was then removed. After negative aspiration of blood or CSF and confirmation on AP, oblique as well as lateral view, radiofrequency ablation probe was then inserted at each level. Impedance was then recorded at C4 to be 275 ohm, at C5 to be 281 ohm, at C6 to be 211 ohm, and at C7 to be 295 ohm. Motor-evoked potential was then initiated to 1.5 volt without any motor response to each corresponding level or the right arm. The probe was then removed intact and a total of 4 mL of preservative-free 1% lidocaine was injected in divided doses between those four levels after negative aspiration of blood or CSF. After repeated confirmation, the radiofrequency ablation probe was then inserted and after repeated confirmation on AP, oblique as well as lateral view, radiofrequency ablation was then initiated to approximately 80 degree Celsius for 60 second at each level. Once concluded, the probe was then removed intact. A total of 4 mL of preservative-free 0.25% Marcaine with 40 mg of Depo-Medrol was injected in divided doses between those four levels. The needles were then removed intact. The patient experienced no sign or symptoms of intrathecal or intravascular injection. The patient experienced no paresthesia. The procedure was completed without any apparent difficulty or any complications. The patient appeared to tolerate it well. Sensory as well as motor exam was unchanged from prior to the procedure. ASSESSMENT AND PLAN: This is a 53-year-old female with cervical spondylosis, cervical degenerative disc disease, cervical facet arthropathy status post right-sided cervical radiofrequency ablation of the medial branch at C4-C7, patient will continue her current medications, patient will follow in approximately 2 weeks for reevaluation.
== END 2023-12-13 10:31 | disposition home or self-care (01) ==
LOC: SDC 07:10 → AC 07:11
PROVIDERS: PCP Family Medicine Geriatric Medicine; Referring Provider Anesthesiology Pain Medicine; Visit Provider Anesthesiology Pain Medicine
PROC: (CPT 64633; principal; 2023-12-13 08:55)
DX: M47.812 Spondylosis without myelopathy or radiculopathy, cervical region (principal); F11.20 Opioid dependence, uncomplicated; I50.32 Chronic diastolic (congestive) heart failure; I11.0 Hypertensive heart disease with heart failure; M32.10 Systemic lupus erythematosus, organ or system involvement unspecified; E11.42 Type 2 diabetes mellitus with diabetic polyneuropathy; M50.30 Other cervical disc degeneration, unspecified cervical region; Z99.3 Dependence on wheelchair; Z94.0 Kidney transplant status; Z96.643 Presence of artificial hip joint, bilateral; Z86.16 Personal history of COVID-19; Z79.891 Long term (current) use of opiate analgesic; M79.7 Fibromyalgia; D36.10 Benign neoplasm of peripheral nerves and autonomic nervous system, unspecified; G89.0 Central pain syndrome
CPT/HCPCS: 64633; 64634 ×3; 72050; 76000; J7120; J2405

== ENCOUNTER → 2023-12-20 | Outpatient (CLI) | payer MEDICARE, MEDICAID, SELFPAY ==
[2023-12-20 10:24] VITALS: BP 133/91; PULSE 86; RESP 16; TEMP 35.8; O2SAT 95
[2023-12-20 10:30] VITALS: BP 118/79; PULSE 86; RESP 16; O2SAT 96
[2023-12-20] MEDS: Lidocaine 2% (20 ml mdv) 20 ML Vial INFILT (10:30)
[2023-12-20 10:43] VITALS: BP 123/88; PULSE 84; RESP 16; O2SAT 96
--- NOTE | 2023-12-20 11:16 | PCM.OP.PRO ---
Procedure Report Date of Procedure: 12/20/23 Assessment & Plan Assessment/Plan (1) Ascites: QUALIFIERS: Ascites type: other type Qualified Code(s): R18.8 - Other ascites PLAN: PROCEDURE: Ultrasound guided paracentesis ORDERING PROVIDER: Dr. Bowen INDICATION: Female, 53 years old. Ascites. PROVIDER: YAMIL Lock TECHNIQUE: The risks, benefits, and alternatives to the procedure were explained to the patient. The specific risks of bleeding, infection, and damage to bowel were detailed and accepted. Witnessed informed consent was obtained. The abdomen was ultrasonographically surveyed. An appropriate pocket of fluid was identified in the right lower quadrant. The skin was prepped with chlorhexidine and sterile field established. 2% lidocaine was used for local anesthetic. Using ultrasound guidance, the peritoneal cavity was accessed with a 5-Grenadian paracentesis needle/catheter system. The trocar was removed. A total of 750 ml of clear yellow colored fluid was removed from the peritoneal cavity. The catheter was removed and a sterile dressing was applied. The procedure was well tolerated. IMPRESSION: Successful ultrasound-guided paracentesis with right lower quadrant access site Procedures Radiology Radiology US Procedures: [id number] Paracentesis
== END | disposition home or self-care (01) ==
LOC: US 10:09
PROVIDERS: PCP Family Medicine Geriatric Medicine; Referring Provider Family Medicine Geriatric Medicine; Visit Provider Family Medicine Geriatric Medicine
DX: R18.8 Other ascites (principal)
CPT/HCPCS: 49083

== ENCOUNTER → 2023-12-28 | Outpatient (CLI) | payer MEDICARE, MEDICAID, SELFPAY | END | disposition home or self-care (01) | LOC: US 14:01 | PROVIDERS: PCP Family Medicine Geriatric Medicine; Referring Provider Family Medicine Geriatric Medicine; Visit Provider Family Medicine Geriatric Medicine | DX: R18.8 Other ascites (principal) | CPT/HCPCS: 76705 ==

== ENCOUNTER → 2024-01-03 | Outpatient (CLI) | payer MEDICARE, MEDICAID, SELFPAY ==
--- NOTE | 2024-01-03 10:09 | US_ITS ---
STUDY: ABDOMINAL ULTRASOUND -4 quadrants REASON FOR VISIT: Female, 53 years old ASCITES TECHNIQUE: Ultrasound evaluation of the right upper quadrant was performed with real-time and static batista-scale imaging. TECHNICAL QUALITY: Adequate. COMPARISON: None. FINDINGS: The 4 quadrants were visualized for assessment of ascites. Not enough ascitic fluid is available for safe paracentesis. US/Abdomen Limited IMPRESSION: Not enough ascitic fluid is seen for safe paracentesis. Electronically Signed: Jonathan Garcia MD at 11:17 EDT ,
== END | disposition home or self-care (01) ==
LOC: US 10:08
PROVIDERS: PCP Family Medicine Geriatric Medicine; Referring Provider Family Medicine Geriatric Medicine; Visit Provider Family Medicine Geriatric Medicine
DX: R18.8 Other ascites (principal)
CPT/HCPCS: 76705

== ENCOUNTER → 2024-01-13 | Outpatient (CLI) | payer MEDICARE, MEDICAID, SELFPAY ==
[2024-01-13 12:37] LABS: Absolute Lymphocyte Count 0.73 X10^3/uL (0.83-4.51); Absolute Neutrophil Count 5.4 X10^3/uL (2.0-7.7); Basophil# 0.04 X10^3/uL; Basophil% 0.5 % (0-1); Eosinophil# 0.25 X10^3/uL; Eosinophils% 3.3 % (0-5); Hematocrit 42.9 % (37-47); Hemoglobin 13.5 g/dL (12.0-15.0); Lymphocyte # 0.73 X10^3/ul (0.83-4.51); Lymphocyte % 9.6 % (19-41); Mean Corp Hgb Conc 31.5 g/dL (32-36); Mean Corpuscular Hgb 29.2 pg (27.0-32.0); Mean Corpuscular Volume 92.9 fL (81-99); Mean Platelet Vol. 10.7 fl (6.2-12.0); Monocyte# 1.14 X10^3/uL; NRBC Flagged by Analyzer 0 % (0-5); Neutrophil # 5.36 X10^3/uL (2.7-7.7); Neutrophil % 70.5 % (47-70); Platelet Count 215 K/mm3 (150-450); RBC Distribution Width CV 15.3 % (11.6-14.6); RBC Distribution Width SD 51.7 fl (35.1-43.9); Red Blood Count 4.62 M/mm3 (4.2-5.4); White Blood Count 7.6 K/mm3 (4.4-11.0)
[2024-01-13 12:39] LABS: Color, Urine Yellow (Yellow); Glucose, Dipstick 100 mg/dl (Normal); Ketone-Dipstick 5 mg/dl (Negative); Leukocyte Esterase-Dipstick 500 /ul (Negative); Nitrite-Dipstick Positive (Negative); Occult Blood-Urine 50 /ul (Negative); Protein-Dipstick 30 mg/dl (Negative); Urine Bilirubin Dipstick Negative (Negative); Urine Clarity Cloudy (Clear); Urine Urobilinogen 1 mg/dl (Normal)
[2024-01-13 12:49] LABS: ALB/GLOB Ratio 0.6 RATIO (0.9-2.4); AST(SGOT) 18 U/L (15-37); Alanine Aminotransfer ALT/SGPT 9 U/L (13-56); Albumin, Serum 3.3 g/dL (3.2-5.0); Alkaline Phosphatase 140 U/L (45-117); Anion Gap 7 (5-15); BUN 28 mg/dL (7-18); BUN/Creat Ratio 17.8 RATIO (10-20); Chloride 107 mmol/L (98-107); Creatinine, Serum 1.57 mg/dL (0.55-1.02); EST Glomerular Filtration Rate 37 mL/min (>60); Est Glom Filt Rate - Afr Amer 45 mL/min (>60); Globulin 5.1 g/dL (2.2-4.2); Glucose 134 mg/dL (74-106); Potassium 4.2 mmol/L (3.5-5.1); Protein, Total 8.4 g/dL (6.4-8.2); Sodium Level 136 mmol/L (136-145)
[2024-01-13 12:51] LABS: International Normalized Ratio 1.4; Prothrombin Time (Protime)PT. 16.8 SECONDS (11.7-14.9)
[2024-01-13 12:56] LABS: Hemoglobin A1c 5.9 % (3.8-5.6)
== END | disposition home or self-care (01) ==
PROVIDERS: PCP Family Medicine Geriatric Medicine; Visit Provider Family Medicine Geriatric Medicine
DX: E11.65 Type 2 diabetes mellitus with hyperglycemia (principal); I50.9 Heart failure, unspecified; E78.5 Hyperlipidemia, unspecified; N39.0 Urinary tract infection, site not specified
CPT/HCPCS: 36415; 80053; 81002; 83036; 85025; 85610; 87077; 87086; 87088; 87186

== ENCOUNTER 2024-01-14 13:41 | Outpatient (CLI) | payer MEDICARE, MEDICAID, SELFPAY ==
--- NOTE | 2024-01-14 13:42 | US_ITS ---
STUDY: ABDOMINAL ULTRASOUND -4 quadrants for assessment of ascites. REASON FOR VISIT: Female, 53 years old ASCITES TECHNIQUE: Ultrasound evaluation of the 4 quadrants was performed with real-time and static batista-scale imaging. TECHNICAL QUALITY: Adequate. COMPARISON: None. FINDINGS: Not enough ascites present for safe paracentesis. US/Abdomen Limited IMPRESSION: Not enough ascites for safe paracentesis. Electronically Signed: Jonathan Garcia MD at 14:43 EDT ,
== END 2024-01-14 23:59 | disposition home or self-care (01) ==
LOC: US 13:42
PROVIDERS: PCP Family Medicine Geriatric Medicine; Visit Provider Family Medicine Geriatric Medicine
DX: R18.8 Other ascites (principal)
CPT/HCPCS: 76705

== ENCOUNTER → 2024-01-20 | Outpatient (CLI) | payer MEDICARE, MEDICAID, SELFPAY ==
--- NOTE | 2024-01-20 10:47 | EKG12_ITS ---
Test Reason : R SIDED HF Blood Pressure : / mmHG Vent. Rate : 093 BPM Atrial Rate : 093 BPM P-R Int : 180 ms QRS Dur : 132 ms QT Int : 336 ms P-R-T Axes : 072 005 015 degrees QTc Int : 417 ms Sinus rhythm with Premature atrial complexes Right bundle branch block Abnormal ECG Confirmed by GARO GARCIA, KERON ([id number]), sound editor LUISA PRESTON ([id number]) on 01/21/2024 6:42:32 AM Referred By: Mitchell Bowen Confirmed By:KERON WYMAN MD
[2024-01-20 12:16] LABS: International Normalized Ratio 1.8; Prothrombin Time (Protime)PT. 20.9 SECONDS (11.7-14.9)
== END | disposition home or self-care (01) ==
LOC: PSN 10:46
PROVIDERS: PCP Family Medicine Geriatric Medicine; Referring Provider Family Medicine Geriatric Medicine; Visit Provider Family Medicine Geriatric Medicine
DX: I50.810 Right heart failure, unspecified (principal); Z79.01 Long term (current) use of anticoagulants; Z95.4 Presence of other heart-valve replacement
CPT/HCPCS: 36415; 85610; 93005

== ENCOUNTER 2024-02-02 10:34 | Outpatient (RCR) | payer MEDICARE, MEDICAID, SELFPAY ==
[2024-01-27 11:33] LABS: International Normalized Ratio 1.9; Prothrombin Time (Protime)PT. 21.9 SECONDS (11.7-14.9)
[2024-02-02 11:47] LABS: International Normalized Ratio 2.3; Prothrombin Time (Protime)PT. 25.3 SECONDS (11.7-14.9)
== END 2024-02-02 18:00 | disposition home or self-care (01) ==
LOC: LAB 10:34
PROVIDERS: PCP Family Medicine Geriatric Medicine
DX: Z79.01 Long term (current) use of anticoagulants (principal); Z95.4 Presence of other heart-valve replacement
CPT/HCPCS: 36415; 85610

== ENCOUNTER 2024-02-16 10:11 | Outpatient (RCR) | payer MEDICARE, MEDICAID, SELFPAY ==
[2024-02-16 11:05] LABS: International Normalized Ratio 2.1
== END 2024-02-16 18:00 | disposition home or self-care (01) ==
LOC: LAB 10:11
PROVIDERS: PCP Family Medicine Geriatric Medicine
DX: Z79.01 Long term (current) use of anticoagulants (principal); Z95.4 Presence of other heart-valve replacement
CPT/HCPCS: 36415; 85610

== ENCOUNTER → 2024-02-16 | Outpatient (CLI) | payer MEDICARE, MEDICAID, SELFPAY ==
--- NOTE | 2024-02-16 10:26 | PCM.CR.HP2 ---
CR - History & Physical General Arrival date:: 02/16/24 Arrival time:: 10:28 Date of Referral:: 01/27/24 Date of CR Evaluation:: 02/16/24 Referring Physician: Dr. Flynn Fowler Primary Diagnosis: S/P Tricuspid Valve replacement History of Present Cardiac Event Onset Date Heart valve replacement or repair:: Yes Medications Ambulatory Orders ?Medication ?Instructions ?Recorded ipratropium bromide 42 mcg (0.06 1 spray intranasal BID allergies 07/08/20 %) nasal spray prednisone 5 mg tablet 5 mg PO DAILY steroid for lupus 07/08/20 levocetirizine 5 mg tablet 5 mg PO DAILY ALLERGIES 07/17/20 blood sugar diagnostic #10 ea 11/04/20 lancets 33 gauge #100 ea 11/04/20 pregabalin 150 mg capsule 150 mg PO BID neuropathy 03/31/21 OneTouch Verio test strips (blood #360 ea 04/17/21 sugar diagnostic) hydroxychloroquine 200 mg tablet 200 mg PO DAILY antimalarial 07/08/21 hydralazine 25 mg tablet 25 mg PO 4X/DAY PRN Hypertension 08/26/21 oxycodone 5 mg tablet 5 mg PO DAILY PRN PRN Pain 08/26/21 acetaminophen 500 mg tablet 500 mg PO Q6H PRN pain/fever 11/25/21 ketoconazole 2 % shampoo 1 applic topical DAILY hair loss 01/04/22 desvenlafaxine succinate 100 mg 100 mg PO DAILY ANTIDEPRESSANT 02/19/22 tablet,extended release 24 hr Dexcom G6 Risk Management Director (blood-glucose #1 ea 03/04/22 meter,continuous) cevimeline 30 mg capsule (Evoxac) 1 cap PO TID dry mouth 05/05/22 BD Ultra-Fine Mini Pen Needle 31 #100 ea 06/30/22 gauge x 3/16 (pen needle, diabetic) alpha lipoic acid 600 mg capsule 600 mg PO BID neuropathy 07/23/22 carvedilol 25 mg tablet 12.5 mg PO BID 08/14/22 mycophenolate mofetil 250 mg 500 mg PO BID anti rejection 03/04/23 capsule (CellCept) cyclosporine 25 mg capsule 75 mg PO BID autoimmune suppresant 03/05/23 lancets 33 gauge (OneTouch Delica 03/05/23 Lancets) mirtazapine 15 mg tablet 30 mg PO QHS sleep 03/05/23 Lactobacillus acidophilus 10 mg PO DAILY probiotic 04/01/23 (Acidophilus capsule) bumetanide 1 mg tablet 2 mg PO DAILY fluid retention 04/01/23 clindamycin 1.2 % (1 % 1 applic topical DAILY acne 04/01/23 base)-benzoyl peroxide 5 % topical gel betamethasone, augmented 0.05 % 1 applic topical Q12H excema 06/09/23 topical cream diclofenac sodium 1 % topical gel 2 g topical ONCE PRN pain 06/09/23 (Voltaren Arthritis Pain) insulin pump cart,automated,BT #45 ea 09/30/23 (Omnipod 5 G6 Pods (Gen 5) subcutaneous cartridge) dextroamphetamine-amphetamine ER 15 mg PO DAILY NARCOLEPSY 10/29/23 15 mg 24hr capsule,extend release (Adderall XR) Dexcom G6 Sensor (blood-glucose #3 ea 11/26/23 sensor) Dexcom G6 Transmitter #1 ea 11/26/23 (blood-glucose transmitter) Humalog U-100 Insulin 100 unit/mL 100 unit subcut DAILY diabetes #90 12/27/23 subcutaneous solution (insulin mL lispro) dapagliflozin propanediol 5 mg 5 mg PO DAILY #90 tabs 12/27/23 tablet (Farxiga) Allergies Allergies LONG Inhibitors Allergy (Verified 12/13/23 07:36) Angioedema adhesive Allergy (Verified 12/13/23 07:36) Rash lisinopril Allergy (Verified 12/13/23 07:36) Angioedema Sulfa (Sulfonamide Antibiotics) Allergy (Verified 12/13/23 07:36) Rash sulfamethoxazole (From Bactrim) Allergy (Verified 12/13/23 07:36) Rash trimethoprim (From Bactrim) Allergy (Verified 12/13/23 07:36) Rash tuberculin, purified protein deriva Allergy (Verified 12/13/23 07:36) Unknown Sleep Disorder Evaluation Hx of Sleep Apnea: Yes Do you snore loudly (louder than talking or can be heard through closed doors)?: No Do you often feel tired/ fatigued/ sleepy during daytime?: No Has anyone observed you stop breathing during sleep?: No History of Hypertension (for STOP score): Yes STOP Results: Negative Advanced Directives Advanced Directives Power of Batch Mixing Truck Driver: Yes Living Will: Yes Advance Directives Information Provided: Yes Advance Directives on File: No DNR Order?:: No Past Medical History Covid-19 Screening Physicial Symptoms Other Clinical Concerns Exposure Risk Pertinent Comorbidities Has a serious heart condition:: Yes Immunocompromised:: Yes Diabetic:: Yes Past Medical Illness Medical History Ambulates with cane Cardiology follow-up encounter Cervical spondylosis CHF with right heart failure Chronic diarrhea CPAP (continuous positive airway pressure) dependence Degenerative disc disease, cervical Diastolic CHF, chronic Essential hypertension Fatty liver Gastric reflux Hip pain History of echocardiogram History of stress test Hypophosphatemia 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 Lupus Lupus nephritis Narcolepsy Non-rheumatic tricuspid valve insufficiency Non-smoker Nonrheumatic mitral (valve) insufficiency Obstructive sleep apnea Osteopenia Post-menopausal Prolonged QT interval Right ventricular dilation Secondary pulmonary arterial hypertension Shortness of breath on exertion SLE (systemic lupus erythematosus) Uses wheelchair Vitamin D deficiency Walker as ambulation aid Wears dentures Wears glasses Past Surgical History Surgical History Hip replacement planned History of biopsy History of dilation and curettage History of esophagogastroduodenoscopy (EGD) History of left heart catheterization (03/08/20) History of right hip replacement Hx of right heart catheterization Kidney transplant recipient port removed revision of right hip arthroplasty (05/10/19) S/P colonoscopy S/P lymph node biopsy S/P nasal polypectomy Status post carpal tunnel release Status post total hip replacement, bilateral Surgical History: - Family History Summary Family History Mother Hypertension Kidney disease ALS (amyotrophic lateral sclerosis) Father Heart disease Hypertension Kidney disease Diabetes Brother Melanoma Social History Smoking History Smoking Status: Never smoker Alcohol Use Alcohol Usage: No Substance Abuse Hx Substance Use: No Occupation Occupation (List type of work in comments):: Unemployed Hobbies, Recreation, Social Activities Hobbies: Watch TV Recreational Activities: I am able to engage in all my recreational activities Social Environment Status Marital Status: Single Current Living Arrangements Living Environment:: Family Children How many children do you have?: 0 Safety Do you feel safe in your surroundings?: Yes Assistance Do you need any assistance at home?: no Review of Systems Review of Systems Hints Review of Present Symptoms: Reports Shortness of Breath with Exertion, Wound Healing (slow), Dizziness/Lightheadedness, Fatigue and Appetite - Special Diet; Denies Shortness of Breath at Rest, PVD, Operative Discomfort, Angina, Heart Arrhythmia/Irregularities, Appetite - Normal, Sleep - Normal or Sexual Changes Pain Is Patient Pain Free?: No Pain Location: other (all joints) Pain Level: 03/22 Risk Factor Assessment Chief Complaint Chief Complaint: S/P Tricuspid valve replacement Vital Signs Pulse Ox: 98 Blood Pressure: 110/72 Pulse Pulse Rate: 77 Pulse Rhythm: Regular Hypertension How long have you been treated?: 10 + Blood Pressure Sitting - Right Arm: 110/72 Stress Stress: - (health) Diabetes Diabetic History: Type II Obesity Height: 5 ft 4 in Weight:: 162 lb Weight in Pounds: 162.0 lbs Body Mass Index (BMI): 27.8 Physical Inactivity Physical Inactivity: None Risk Stratification Risk Guidelines: Moderate Risk: Risk Factor for Smoking, Risk Factor for Dyslipidemia, Risk Factor for Obesity and Risk Factor for Sedentary Lifestyle and Highest Risk: Risk Factor for Diabetes, Risk Factor for Hypertension and Risk Factor for Depression For Smoking Smoking Risk Guidelines For Dyslipidemia Dyslipidemia Risk Guidelines For Diabetes Mellitus Diabetes Risk Guidelines For Obesity/Overweight Obesity/Overweight Risk Guidelines For Hypertension Hypertension Risk Guidelines For Sedentary Lifestyle Sedentary Lifestyle Risk Guidelines For Depression Depression Risk Guidelines Family History Family History Mother Hypertension Kidney disease ALS (amyotrophic lateral sclerosis) Father Heart disease Hypertension Kidney disease Diabetes Brother Melanoma Motivation Motivation to Participate On a scale of 1 to 10, how prepared are you to commit to attending program?: 9 What do you see as barriers to successfully being able to complete the program?: transportation What do you see as the benefits of succesfully completing the program? In other words, what do you hope to get out of participating in the program?: stronger heart Are there issues you are dealing with that will interfere with completing the program?: no Do you have a spouse or signficant other, family or friends who will help support you to complete the program?: yes
--- NOTE | 2024-02-16 10:37 | CR.ITP_ITS ---
Diagnosis General Information Admitting Diagnosis: S/P Tricuspid valve replacement Personal Learning Style:: Audio/Visual Barriers to Learning: No Barriers Stage of change r/t lifestyle modifications:: Contemplation Gave educational material for:: Treating Heart Disease, How The Heart Works, What it means to have Heart Disease, How Coronary Artery Disease is Diagnosed, Heart Procedures, What Heart Medications Do, Risk Factors & Modifications, Living an Active Life, Nutrition, Emotions & Heart Disease, Stress Management & Relaxation and Sleep Disorders & Heart Disease Education/Goals Cardiac Rehabilitation Goals Personal Goals: Initial Assessment: Improve management of stress and emotions, Improve energy level, Participate in home exercise program, Get back to work, or to resume activities faster, Improve muscle strength and endurance, Improve diet and eating habits (eat healthier) and Control risk factors (learn risk factor modification) Scale for measuring improvement of personal goals Diagnosis & Disease Process Outcomes/Goals: Pt IDs own risk factors & lifestyle modifications by Session 10, Verbalizes symptoms of angina & response by session 3., Pt independently manages and Other Additional Outcomes/Goals: Plan/Interventions: Assist Pt to ID & engage in lifestyle modification to reduce CVD risk, Instruct on individual risk factors, Review symptoms of angina & emergency actions, Review secondary diagnosis & identify educational needs. and Other see comment 30 day Reassessments:: Not Met 30 day Reassessments:: Not Met 30 day Reassessments:: Not Met 30 day Reassessments:: Not Met Final Reassessments:: Not Met Safety Referral to Physical Therapy: No Referral to [facility] Case Management: No Fall Risk Assessed:: Yes Assistive Devices:: None Exercise - Initial Assessment Visit Date of Eval: 02/16/24 (initial eval ) Mets: Pre-: >3 METS for 30 minutes by discharge, >5 METS for 30 minutes by dis charge, >7 METS for 30 minutes by discharge and Unable to meet goal due to: (see comment below) Physician Prescribed Exercise Modalities: Treadmill, Rower, Schwinn Airdyne AD-7, SciFit Stepper, SciFit Pro- II Ergometer and SciFit Lateral Patterson Frequency: 3x/week for 12 weeks [36 sessions] Intensity: 60-80% of age predicted maximum heart rate reserve Duration: 30 - 45 minutes Current METSs:: 3 Target Heart Rate:: 101-127 EKG Type: SR 1st degree AVB RBBB Outcomes & Goals Goals:: Verbalizes understanding of THR, RPE & goal METS by session 6, Documents in home exercise log/reports 30 min aerobic 5 day/wk by DC, Demonstrates accurate pulse taking by DC and Other additional outcome/goals: see below Intervention & Plan Exercise Program Goals: Instruct on personal THR & RPE, Instruct on MET level & personal MET goal, Show patient to take own pulse /validate performance until accurate, Instruct on home exercise and Other additional plan/int Physical Activity Home Exercise Physical Activity - Home Exercise: Safe Exercise, Warm-up, Self-monitoring, Cool -Down, Home Exercise > 30 min Daily and Sitting Time <3 hours/daily Outcomes & Goals Outcomes/Goals: Demonstrates correct Warm-up/exercise Cool-Down (S3) if = 2.5 METs, Verbalizes symptoms of exercise intolerance by Session 3 (S3), Demonstrate safe equipment use (S3) & follows exercise prescrition (6) and Other: See below Intervention & Plan Plan/Intervention: Instruct warm-up & cool-down if exercising at > 2 METs, Instruct on symptoms of exercise intolerance & actions to take, Instruct & monitor on saf, Assess intial functional capacity & safety risk and Other See below Nutrition - Initial Assessment Program Goals Nutrition Program Goals Patient has diagnosis of Hyperlipidemia (ICD E78)?: No Visit Date of Eval: 02/16/24 (initial eval ) Cholesterol/Lipids (Other Core Measures) Determine presence & major risk factors that modify LDL goal: Hypertension or hypertensive medication, Low HDL cholesterol <40 mg/dL*, Family history of premature CHD in Male < 55 years: female <65 yearsFa and Age men > 45 years; women >/= 55 years Outcomes/Goals: Pt IDs own risk factors & lifestyle modifications by Session 10, Verbalizes symptoms of angina & response by session 3., Pt independently manages and Other Additional Outcomes/Goals: Intervention/Plan: Advocate for lipid panel cholesterol medication if applicable, Instruct on personal lipid levels & lipid goals/NCEP guidelines, Instruct on cholesterol and Other additional plan/int Referral to dietitian:: Yes Diabetes (Other Core Measures) Diabetes Type: Diagnosis Type II ICD-10 E11 Insulin dependent injection/pump?: Yes Non-Insulin Dependent?: Yes Do you monitor your blood sugar at home?: Yes Referral to Diabetic Clinic:: Yes Outcomes/Goals:: Able to state symptoms of, Able to state, Able to state and Other additional Intervention/Plan:: Instruct on, Refer to, Instruct on and Other Weight Mgt (Other Care) Height: 5 ft 4 in Weight:: 162 lb BMI: 27.8 Diagnosis Overweight/Obesity BMI> 30% ICD-10 E66: No Diagnosis High BMI/Morbid Obesity BMI> 35% ICD-10 Z68: No Outcomes/Goals: Pt sets, maintains & shows weight loss goal & trend during rehab and Other additional outcomes/goals Intervention/Plan: Instruct on ideal BMI & set weight loss goal w/patient, Assist pt to ID & incorporate diet changes for weight loss by S9, Refer to Structured Weight Loss program as appropriate, Encourage goal of using 250- 300dcal per session for weight loss and Other additional plan/interventions Healthy Eating Habits Will attend diet classes:: Yes Outcomes/Goals:: Consume diet rich in vegs,fruits,whole grain/high fiber,fish ,lean meat, Limit sat/trans fats,cholesterol & added salts & sugars and Other additional outcome/goals: Intervention/Plan:: Assess current eating habits and Other Additional pl an/interventions Education Gave educational materials for:: Signs & symptoms of hypoglycemia, Signs & symptoms of hyperglycemia, Relate diabetes to coronary artery disease and Healthy eating Core - Initial Assessment Visit Date of Eval: 02/16/24 (initial eval ) Medication Compliance Preventative Medication(s):: Beta pippa and Warfarin/Coumadin H/O mental health issues: depression, anxiety, or addiction?: Yes Doesn?t believe in the benefits of treatment?: No Believes medications are unnecessary or harmful?: No Has a concern about medication side effects?: No Expresses concern over the cost of medications?: No Outcomes/Goals: Verbalizes medications,desired effect & common side effects @ DC, Pt self-reports following medication regimen, Keeps card in wallet w/medications listed by DC and Other additional outcome/goals: Interventions/plans: Instruct on medication effects & side effects, Review medication list w/patient every two weeks, Instruct importance of taking meds as ordered & assist problem solving and Other additional Tobacco Use Tobacco Use: Non-smoker Hypertension Hypertension Diagnosis:: Hypertension ICD-10 I10 [place] [employer] Hypertension Guidelines Outcomes/Goals: Able to verbalize/achieve optimal blood pressure <130/80, Incorporates diet changes & exercise for blood pressure control by DC and Other additional outcomes/goals Interventions/plan: Instruct on optimal blood pressure, hypertension & medications, Instruct on effects of sodium, alcohol, stress, exercise &hypertension and Other additional plan/interventions Tobacco Cessation Referral Smoking Cessation Referral:: No Individual Education/Counseling:: No Education Schedule Given:: Yes Psychosocial - Initial Assess VIsit Date of Eval: 02/16/24 (initial eval ) History of previous Mental disease:: Yes History of Emotional Disorders: Anxious and Dementia Self-reported stressors Other/Comments:: Pt is on meds for anxiety and depression Target Goals Target Goals Outcomes/Goals: See list Psychosocial Outcomes/Goals:: ID's personal stressors & 2 strategies to manage stress by discharge and Other Additional outcome/goals: Intervention/Plan: See List Interventions/Plan:: Assess stressors,coping strategies & signs of derpression on admission, Instruct/assist pt to develop coping & personal stress Mgt strategies, Refer to Behavioral Health if appropriate, Refer to Physician if appropriate, Instruct patient to recognize signs & symptoms of depression, Instruct patient to recog and Other additional plan/intervention Patient Health Questionnaire PHQ-9 Screening Initial Assessment: 1. Little interest or pleasure in doing things: More than half the days 2. Feeling down, depressed, or hopeless: More than half the days 3. Trouble falling or staying asleep, or sleeping too much: Nearly every day 4. Feeling tired or having little energy: Nearly every day 5. Poor appetite or overeating: Nearly every day 6. Feeling bad about yourself -- or that you are a failure or have let yourself or your family down: Several days 7. Trouble concentrating on things, such as reading the newspaper or watching television: More than half the days 8. Moving or speaking so slowly that other people could have noticed. Or the opposite - being so fidgety or restless that you have been moving around a lot more than usual: Several days 9. Thoughts that you would be better off , or of hurting yourself in some way: Not at all Total Score: 17 KARLI-Q SV Test Statements CAD is a disease of the arteries in the heart: False Examples of risk factors for heart disease: True Angina is chest pain or discomfort: True The benefits of resistance training include: True Eating more meat and dairy products: False Anti-platelet medications such as aspirin are important: True The only effective way to manage stress: False An exercise warm-up slowly increases heart rate: I Don't Know Prepared, processed foods usually have high sodium: True Depression is common after a heart attack: True The statin medications lower cholesterol: True To control blood pressure, lower the amount of sodium: True If someone gets chest discomfort during walking: False Transfats are partially hydrogenated vegetable oils: I Don't Know Sleep apnea that is not treated increases the risk: False To control cholesterol, one should become a vegetarian: False Someone knows if he/she is exercising at the right level: True Diabetes cannot be prevented with exercise & health eating: False Stress is a large risk for heart attack: True A diet that can help lower blood pressure is rich in: True Total Score Total Correct Responses: 18 Self-Efficacy 6-Item Scale Initial Assessment: We would like to know how confident you are in doing certain activities. Please select your confidence level for: Fatigue Select Number: 2 Physical Discomfort or Pain Select Number: 3 Emotional Distress Select Number: 8 Other Symptoms or Health Problems Select Number: 2 Different Tasks and Activities Select Number: 7 Medication Select Number: 4 Total Score:: 4 Nutrition Survey Nutrition Survey Instructions Scoring Instructions Nutrition Survey Initial: Have you lost >10 lbs over the past 2 months without trying?: Yes Are you following a special diet at home for diabetes, low fat, or low salt?: Yes Are you interested in meeting with a dietitian for help understanding your diet?: Yes Do you eat less than 3 meals a day?: Yes Do you eat fatty meats (lomeli, sausage, ribs, etc), fried foods, desserts, large amounts of salad dressings, margarine, butter, or cheese most days?: No Do you have food allergies? [Enter types in comment field]: No Do you eat in restaurants more than 3 times a week?: No Do you season food with salt, seasoning salt, or garlic salt?: Yes Do you used canned, boxed, frozen meals, or soups, seasoning packets?: Yes Total Score:: 6 Exercise - 30-day Assessment Physician Prescribed Exercise Modalities: Treadmill, RowerClement AD-7, SciFit Stepper, SciFit Pro- II Ergometer and SciFit Lateral Patterson Exercise - 60-day Assessment Physician Prescribed Exercise Modalities: Treadmill, RowerClementne AD-7, SciFit Stepper, SciFit Pro- II Ergometer and SciFit Lateral Patterson Exercise - 90-day Assessment Physician Prescribed Exercise Modalities: Treadmill, Rower, Schwinn Airdyne AD-7, SciFit Stepper, SciFit Pro- II Ergometer and SciFit Lateral Patterson Exercise - Final/Discharge Physician Prescribed Exercise Modalities: Treadmill, Rower, Schwinn Airdyne AD-7, SciFit Stepper, SciFit Pro- II Ergometer and SciFit Lateral Flatbed Press Operator Frequency: 3x/week for 12 weeks [36 sessions] Intensity: 60-80% of age predicted maximum heart rate reserve Current METSs:: 3 Target Heart Rate:: 101-127 Nutrition - 30-Day Assessment Weight Mgt (Other Care) Height: 5 ft 4 in Weight:: 162 lb BMI: 27.8 Nutrition - 60-Day Assessment Weight Mgt (Other Care) Height: 5 ft 4 in Weight:: 162 lb BMI: 27.8 Psychosocial - 30-Day Assess Target Goals Target Goals Psychosocial - 60-Day Assess Target Goals Target Goals Psychosocial - 90-Day Assess Target Goals Target Goals Psychosocial - Final Assessmen Target Goals Target Goals Nutrition - 90-Day Assessment Weight Mgt (Other Care) Height: 5 ft 4 in Weight:: 162 lb BMI: 27.8 Nutrition - Final Assessment Program Goals Patient has diagnosis of Hyperlipidemia (ICD E78)?: No Weight Mgt (Other Care) Height: 5 ft 4 in Weight:: 162 lb BMI: 27.8
[2024-02-16 11:01] VITALS: PULSE 77; O2SAT 98
[2024-02-16 11:03] VITALS: BP 110/72
[2024-02-16 11:30] VITALS: BMI 27.8
[2024-02-16 11:32] VITALS: BMI 27.8
== END | disposition home or self-care (01) ==
PROVIDERS: PCP Family Medicine Geriatric Medicine
DX: Z95.2 Presence of prosthetic heart valve (principal); I11.0 Hypertensive heart disease with heart failure; I50.9 Heart failure, unspecified; G47.33 Obstructive sleep apnea (adult) (pediatric); Z99.89 Dependence on other enabling machines and devices; Z96.641 Presence of right artificial hip joint; R06.02 Shortness of breath; R42 Dizziness and giddiness; R53.83 Other fatigue

== ENCOUNTER → 2024-02-24 | Outpatient (CLI) | payer MEDICARE, MEDICAID, SELFPAY ==
[2024-02-16 11:32] VITALS: BMI 27.8
[2024-02-24 15:43] LABS: Absolute Lymphocyte Count 1.06 X10^3/uL (0.83-4.51); Absolute Neutrophil Count 4.5 X10^3/uL (2.0-7.7); Basophil# 0.04 X10^3/uL; Basophil% 0.6 % (0-1); Eosinophil# 0.09 X10^3/uL; Eosinophils% 1.3 % (0-5); Hematocrit 38.3 % (37-47); Hemoglobin 12.2 g/dL (12.0-15.0); Lymphocyte # 1.06 X10^3/ul (0.83-4.51); Lymphocyte % 15.6 % (19-41); Mean Corp Hgb Conc 31.9 g/dL (32-36); Mean Corpuscular Hgb 29.3 pg (27.0-32.0); Mean Corpuscular Volume 92.1 fL (81-99); Mean Platelet Vol. 10.7 fl (6.2-12.0); Monocyte# 1.02 X10^3/uL; NRBC Flagged by Analyzer 0 % (0-5); Neutrophil % 66.3 % (47-70); Platelet Count 190 K/mm3 (150-450); RBC Distribution Width CV 16.8 % (11.6-14.6); RBC Distribution Width SD 55.2 fl (35.1-43.9); Red Blood Count 4.16 M/mm3 (4.2-5.4); White Blood Count 6.8 K/mm3 (4.4-11.0)
[2024-02-24 15:57] LABS: International Normalized Ratio 2.2; Prothrombin Time (Protime)PT. 24.7 SECONDS (11.7-14.9)
[2024-02-24 16:27] LABS: ALB/GLOB Ratio 0.6 RATIO (0.9-2.4); AST(SGOT) 23 U/L (15-37); Alanine Aminotransfer ALT/SGPT 11 U/L (13-56); Albumin, Serum 3.1 g/dL (3.2-5.0); Alkaline Phosphatase 136 U/L (45-117); Anion Gap 5 (5-15); BUN 19 mg/dL (7-18); Calcium,Total 9.4 mg/dL (8.5-10.1); Chloride 105 mmol/L (98-107); Cholesterol 113 mg/dL (200); Creatinine, Serum 1.36 mg/dL (0.55-1.02); EST Glomerular Filtration Rate 44 mL/min (>60); Est Glom Filt Rate - Afr Amer 53 mL/min (>60); Globulin 5.1 g/dL (2.2-4.2); Glucose 157 mg/dL (74-106); High Density Lipoprotein 45 mg/dL; Potassium 3.5 mmol/L (3.5-5.1); Protein, Total 8.2 g/dL (6.4-8.2); Sodium Level 136 mmol/L (136-145); Thyroid Stim Hormone (TSH) 1.23 uIU/mL (0.358-3.74); Triglycerides 93 mg/dL; Very Low Density Lipoprotein 19 mg/dL (5-40)
[2024-02-24 16:32] LABS: Hemoglobin A1c 6.2 % (3.8-5.6)
== END | disposition home or self-care (01) ==
LOC: LAB 14:17
PROVIDERS: PCP Family Medicine Geriatric Medicine; Visit Provider Family Medicine Geriatric Medicine
DX: I10 Essential (primary) hypertension (principal); E11.9 Type 2 diabetes mellitus without complications; E78.5 Hyperlipidemia, unspecified; I07.1 Rheumatic tricuspid insufficiency
CPT/HCPCS: 36415; 80053; 80061; 83036; 84443; 85025; 85610

== ENCOUNTER → 2024-02-28 | Outpatient (CLI) | payer MEDICARE, MEDICAID, SELFPAY ==
[2024-02-16 11:32] VITALS: BMI 27.8
--- NOTE | 2024-02-28 12:17 | US_ITS ---
PROCEDURE: Ultrasound guided paracentesis. DATE OF EXAMINATION: February 28, 2024. INDICATION: Female, 53 years old. Ascites. PHYSICIAN: Jonathan Garcia M.D. TECHNIQUE: The risks, benefits, and alternatives to the procedure were explained to the patient. The specific risks of bleeding, infection, and damage to bowel were detailed and accepted. Witnessed informed consent was obtained. The abdomen was ultrasonographically surveyed. An appropriate pocket of fluid was identified at the right lower quadrant. The skin were cleaned and prepped in the usual sterile fashion. Using ultrasound guidance, the peritoneal cavity was accessed with a 5-Khmer paracentesis needle/catheter system. The trocar was removed. A total of 600 ml of thu-colored fluid were removed from the peritoneal cavity. The catheter was removed and a sterile dressing was applied. The procedure was well tolerated. US/Paracentesis with US IMPRESSION: Ultrasound guided paracentesis. Electronically Signed: Jonathan Garcia MD at 13:48 EDT ,
[2024-02-28] MEDS: Lidocaine 2% (20 ml mdv) 20 ML Vial INFILT (12:40)
[2024-02-28 12:56] VITALS: BP 112/76; PULSE 74; RESP 18; O2SAT 97
== END | disposition home or self-care (01) ==
LOC: US 12:16
PROVIDERS: PCP Family Medicine Geriatric Medicine; Referring Provider Family Medicine Geriatric Medicine; Visit Provider Family Medicine Geriatric Medicine
DX: R18.8 Other ascites (principal)
CPT/HCPCS: 49083

== ENCOUNTER → 2024-03-03 | Outpatient (CLI) | payer MEDICARE, MEDICAID, SELFPAY ==
[2024-02-16 11:32] VITALS: BMI 27.8
--- NOTE | 2024-03-03 11:09 | EKG12_ITS ---
Test Reason : PVC Blood Pressure : / mmHG Vent. Rate : 087 BPM Atrial Rate : 087 BPM P-R Int : 148 ms QRS Dur : 136 ms QT Int : 362 ms P-R-T Axes : 048 -13 001 degrees QTc Int : 435 ms Sinus rhythm with Premature atrial complexes Right bundle branch block Abnormal ECG Confirmed by Cholo Montenegro ([id number]), editor producer LUISA PRESTON ([id number]) on 03/06/2024 9:05:11 AM Referred By: Rigo Jose Confirmed By:Cholo Montenegro
--- NOTE | 2024-03-03 12:05 | RAD_ITS ---
INDICATION: PVCS. Valve replacement/tricuspid valve on 01/04/2024 EXAMINATION/TECHNIQUE: X-RAY - XR Chest 2 Views COMPARISON: 11/20/2023 FINDINGS: LIFE-SUPPORT AND LINES: 1. None HEART AND VESSELS: Preop silhouette is upper limit of normal. 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 No evidence congestive failure. LUNGS AND PLEURAL SPACES: Lungs are clear. No focal infiltrate, consolidation or effusions. No evidence of pneumothorax. No pulmonary mass is noted. MEDIASTINUM AND HILAR REGIONS: No masses adenopathy noted. No areas of calcification. Visualized upper airway is normal in position. BONY ELEMENTS: No acute bony changes noted. RAD/Chest PA and Lateral IMPRESSION: 1. Stable borderline cardiomegaly. 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 2. No evidence of acute cardiopulmonary process. Electronically Signed: Panfilo Lundberg MD at 23:32 EDT ,
[2024-03-03 13:17] LABS: EST Glomerular Filtration Rate 46 mL/min (>60); Est Glom Filt Rate - Afr Amer 55 mL/min (>60)
== END | disposition home or self-care (01) ==
PROVIDERS: PCP Family Medicine Geriatric Medicine; Referring Provider Internal Medicine Pulmonary Disease; Visit Provider Internal Medicine Pulmonary Disease
DX: I49.3 Ventricular premature depolarization (principal); G47.12 Idiopathic hypersomnia without long sleep time
CPT/HCPCS: 36415; 71046; 82565; 93005

== ENCOUNTER → 2024-03-08 | Outpatient (CLI) | payer MEDICARE, MEDICAID, SELFPAY ==
[2024-02-16 11:32] VITALS: BMI 27.8
--- NOTE | 2024-03-08 12:02 | BI_ITS ---
MAMMOGRAPHY - BILATERAL SCREENING REASON FOR EXAM: Female, 53 years old. Routine annual screening examination. PERTINENT HISTORY: Non-contributory. TECHNIQUE: Digital bilateral breast oscar (3D mammographic acquisition) in the CC and MLO projections. 2-D mediolateral oblique (MLO) and craniocaudad (CC) views of both breasts were obtained. CAD: Full Field Digital Mammography with Computer Added Detection was performed. COMPARISON: Comparison is made with prior study dated March 04, 2023 and March 03, 2022. FINDINGS: Breast Composition: The breasts are heterogeneously dense, which may obscure small masses. There are no dominant masses or suspicious calcifications. No other significant abnormalities are identified. There has been no significant change since the prior study. BI/SCRN MAMM (CAD)W/OSCAR BILAT IMPRESSION: Stable bilateral screening mammogram. Yearly follow-up mammogram recommended. (A) ASSESSMENT CATEGORY: BIRADS Category 1: Negative. A letter regarding these results will be sent to the patient by the facility within 30 days. Approximately 10% of breast cancers are not detected by mammography. A normal mammogram should not delay biopsy of a clinically suspicious abnormality. [id number] Electronically Signed: Jonathan Garcia MD at 14:12 EDT ,
== END | disposition home or self-care (01) ==
LOC: OPBI 12:01
PROVIDERS: PCP Family Medicine Geriatric Medicine; Referring Provider Nurse Practitioner Women's Health; Visit Provider Nurse Practitioner Women's Health
DX: Z12.31 Encounter for screening mammogram for malignant neoplasm of breast (principal)
CPT/HCPCS: 77063; 77067

== ENCOUNTER → 2024-03-09 | Outpatient (CLI) | payer MEDICARE, MEDICAID, SELFPAY ==
[2024-02-16 11:32] VITALS: BMI 27.8
[2024-03-14 15:09] LABS: HPV APTIMA, High Risk Negative (Negative)
== END | disposition home or self-care (01) ==
LOC: LABSPEC 16:16
PROVIDERS: PCP Family Medicine Geriatric Medicine; Referring Provider Nurse Practitioner Women's Health; Visit Provider Nurse Practitioner Women's Health
DX: Z12.4 Encounter for screening for malignant neoplasm of cervix (principal)
CPT/HCPCS: 87624; 88175; G0145

== ENCOUNTER 2024-03-10 11:15 | Outpatient (RCR) | payer MEDICARE, MEDICAID, SELFPAY ==
[2024-02-16 11:32] VITALS: BMI 27.8
== END 2024-03-12 23:59 ==
LOC: CR 11:15
PROVIDERS: PCP Family Medicine Geriatric Medicine
DX: I07.1 Rheumatic tricuspid insufficiency (principal); Z95.4 Presence of other heart-valve replacement
CPT/HCPCS: 93798

== ENCOUNTER → 2024-03-20 | Outpatient (CLI) | payer MEDICARE, MEDICAID, SELFPAY ==
[2024-03-17 08:34] VITALS: BMI 28.0
[2024-03-20 12:52] LABS: Color, Urine Yellow (Yellow); Glucose, Dipstick 250 mg/dl (Normal); Ketone-Dipstick Negative (Negative); Leukocyte Esterase-Dipstick 500 /ul (Negative); Nitrite-Dipstick Negative (Negative); Occult Blood-Urine 250 /ul (Negative); Protein-Dipstick 100 mg/dl (Negative); Urine Bilirubin Dipstick Negative (Negative); Urine Clarity Sl. Cloudy (Clear); Urine Urobilinogen Normal (Normal); Urine pH 6.5 (5.0 - 8.0)
== END | disposition home or self-care (01) ==
LOC: POLAB3 11:30
PROVIDERS: PCP Family Medicine Geriatric Medicine; Visit Provider Family Medicine Geriatric Medicine
DX: N39.0 Urinary tract infection, site not specified (principal); R39.15 Urgency of urination
CPT/HCPCS: 81002; 87077; 87086; 87088; 87186

== ENCOUNTER → 2024-03-27 | Outpatient (CLI) | payer MEDICARE, MEDICAID, SELFPAY ==
[2024-03-17 08:34] VITALS: BMI 28.0
[2024-03-27 13:53] LABS: Erythrocyte Sedimentation Rate 26 mm/hr (0-30)
[2024-03-27 13:56] LABS: Absolute Lymphocyte Count 0.77 X10^3/uL (0.83-4.51); Absolute Neutrophil Count 5.2 X10^3/uL (2.0-7.7); Basophil# 0.05 X10^3/uL; Basophil% 0.7 % (0-1); Eosinophils% 1.4 % (0-5); Hematocrit 39.3 % (37-47); Hemoglobin 11.8 g/dL (12.0-15.0); Lymphocyte # 0.77 X10^3/ul (0.83-4.51); Lymphocyte % 10.4 % (19-41); Mean Corpuscular Hgb 28.6 pg (27.0-32.0); Mean Corpuscular Volume 95.2 fL (81-99); Mean Platelet Vol. 10.6 fl (6.2-12.0); Monocyte# 1.14 X10^3/uL; Monocyte% 15.4 % (0-10); NRBC Flagged by Analyzer 0 % (0-5); Neutrophil # 5.24 X10^3/uL (2.7-7.7); Neutrophil % 70.9 % (47-70); Platelet Count 174 K/mm3 (150-450); RBC Distribution Width CV 17.5 % (11.6-14.6); RBC Distribution Width SD 59.8 fl (35.1-43.9); Red Blood Count 4.13 M/mm3 (4.2-5.4); White Blood Count 7.4 K/mm3 (4.4-11.0)
[2024-03-27 14:09] LABS: Vitamin B12 465 pg/mL (211-911)
[2024-03-27 14:20] LABS: Ferritin 39 ng/mL (8-252); Iron 45 ug/dL (50-170); Iron Binding Capacity,Total 297 ug/dL (250-450); PERCENT IRON SATURATION 15.2 % (15.0-55.0)
[2024-03-27 14:50] LABS: ALB/GLOB Ratio 0.6 RATIO (0.9-2.4); AST(SGOT) 43 U/L (15-37); Alanine Aminotransfer ALT/SGPT 18 U/L (13-56); Albumin, Serum 2.9 g/dL (3.2-5.0); Alkaline Phosphatase 128 U/L (45-117); Anion Gap 7 (5-15); BUN 21 mg/dL (7-18); BUN/Creat Ratio 15.1 RATIO (10-20); Calcium,Total 9.1 mg/dL (8.5-10.1); Chloride 106 mmol/L (98-107); Creatinine, Serum 1.39 mg/dL (0.55-1.02); EST Glomerular Filtration Rate 42 mL/min (>60); Est Glom Filt Rate - Afr Amer 51 mL/min (>60); Globulin 5.1 g/dL (2.2-4.2); Glucose 145 mg/dL (74-106); LDH 243 U/L (84-246); Potassium 3.7 mmol/L (3.5-5.1); Sodium Level 138 mmol/L (136-145)
== END | disposition home or self-care (01) ==
LOC: LAB 11:59
PROVIDERS: PCP Family Medicine Geriatric Medicine; Referring Provider Internal Medicine Medical Oncology; Visit Provider Internal Medicine Medical Oncology
DX: D75.1 Secondary polycythemia (principal); N18.5 Chronic kidney disease, stage 5; Z94.0 Kidney transplant status
CPT/HCPCS: 36415; 80053; 82607; 82728; 82746; 83540; 83550; 83615; 85025; 85652

== ENCOUNTER 2024-03-31 12:03 | Outpatient (RCR) | payer MEDICARE, MEDICAID, SELFPAY ==
[2024-02-16 11:32] VITALS: BMI 27.8
[2024-03-17 08:34] VITALS: BMI 28.0
[2024-03-17 11:32] LABS: International Normalized Ratio 1.9; Prothrombin Time (Protime)PT. 21.3 SECONDS (11.7-14.9)
[2024-03-31 12:48] LABS: International Normalized Ratio 1.7; Prothrombin Time (Protime)PT. 20.3 SECONDS (11.7-14.9)
== END 2024-04-12 18:00 | disposition home or self-care (01) ==
LOC: LAB 12:03
PROVIDERS: PCP Family Medicine Geriatric Medicine
DX: Z79.01 Long term (current) use of anticoagulants (principal); Z95.4 Presence of other heart-valve replacement
CPT/HCPCS: 36415; 85610

== ENCOUNTER → 2024-04-06 | Outpatient (CLI) | payer MEDICARE, MEDICAID, SELFPAY ==
[2024-03-17 08:34] VITALS: BMI 28.0
--- NOTE | 2024-04-06 10:25 | US_ITS ---
STUDY: ABDOMINAL ULTRASOUND -ascites survey. REASON FOR VISIT: Female, 53 years old ASCITES TECHNIQUE: Ultrasound evaluation of the 4 quadrant was performed with real-time and static batista-scale imaging. TECHNICAL QUALITY: Adequate. COMPARISON: None. FINDINGS: Small amount of ascitic fluid is seen in the right lower quadrant. Not enough fluid for safe paracentesis. US/Abdomen Limited IMPRESSION: Not enough fluid for a safe paracentesis. Electronically Signed: Jonathan Garcia MD at 15:06 EDT ,
== END | disposition home or self-care (01) ==
PROVIDERS: PCP Family Medicine Geriatric Medicine; Referring Provider Family Medicine Geriatric Medicine; Visit Provider Family Medicine Geriatric Medicine
DX: R18.8 Other ascites (principal)
CPT/HCPCS: 76705

== ENCOUNTER 2024-04-12 11:15 | Outpatient (RCR) | payer MEDICARE, MEDICAID, SELFPAY ==
[2024-02-16 11:32] VITALS: BMI 27.8
--- NOTE | 2024-03-17 08:23 | PCM.CR.ITP ---
Exercise - Initial Assessment Visit Session #:: 5 Physician Prescribed Exercise Modalities: SciFit Stepper Nutrition - Initial Assessment Weight Mgt (Other Care) Height: 5 ft 4 in Weight:: 163 lb 8 oz BMI: 28.0 Psychosocial - Initial Assess Target Goals Target Goals Patient Health Questionnaire PHQ-9 Screening 30-Day Re-eval Assessment: 1. Little interest or pleasure in doing things: More than half the days 2. Feeling down, depressed, or hopeless: More than half the days 3. Trouble falling or staying asleep, or sleeping too much: Nearly every day 4. Feeling tired or having little energy: Nearly every day 5. Poor appetite or overeating: Nearly every day 6. Feeling bad about yourself -- or that you are a failure or have let yourself or your family down: Several days 7. Trouble concentrating on things, such as reading the newspaper or watching television: More than half the days 8. Moving or speaking so slowly that other people could have noticed. Or the opposite - being so fidgety or restless that you have been moving around a lot more than usual: Several days 9. Thoughts that you would be better off , or of hurting yourself in some way: Not at all Total Score: 17 Self-Efficacy 6-Item Scale 30-Day Re-eval Assessment: We would like to know how confident you are in doing certain activities. Please select your confidence level for: Fatigue Select Number: 2 Physical Discomfort or Pain Select Number: 3 Emotional Distress Select Number: 8 Other Symptoms or Health Problems Select Number: 2 Different Tasks and Activities Select Number: 7 Medication Select Number: 4 Total Score:: 4 Nutrition Survey Nutrition Survey Instructions Scoring Instructions Exercise - 30-day Assessment Visit Date of Eval: 03/17/24 Session #:: 5 Physician Prescribed Exercise Modalities: SciFit Stepper Frequency: 3x/week for 12 weeks [36 sessions] Intensity: 60-80% of age predicted maximum heart rate reserve Duration: 30 - 45 minutes Current METSs:: 3 Target Heart Rate:: 101-127 Current RPE:: 9 Maximum Excercise HR:: 114 Resting Blood Pressure: 122/76 Maximum Exercise Blood Pressure: 122/76 EKG Type: NSR to ST w/BBB with occas pac's, rare pvc Outcomes & Goals Goals:: Verbalizes understanding of THR, RPE & goal METS by session 6, Documents in home exercise log/reports 30 min aerobic 5 day/wk by DC, Demonstrates accurate pulse taking by DC and Other additional outcome/goals: see below Intervention & Plan Exercise Program Goals: Instruct on personal THR & RPE, Instruct on MET level & personal MET goal, Show patient to take own pulse /validate performance until accurate, Instruct on home exercise and Other additional plan/int 30-day Reassessments 30 day Reassessments:: Progressing Reassessment Notes & Comments:: RPE explained Physical Activity Home Exercise Physical Activity - Home Exercise: Safe Exercise, Warm-up, Self-monitoring, Cool-Down, Home Exercise > 30 min Daily and Sitting Time <3 hours/daily Outcomes & Goals Outcomes/Goals: Demonstrates correct Warm-up/exercise Cool-Down (S3) if = 2.5 METs, Verbalizes symptoms of exercise intolerance by Session 3 (S3), Demonstrate safe equipment use (S3) & follows exercise prescrition (6) and Other: See below Intervention & Plan Plan/Intervention: Instruct warm-up & cool-down if exercising at > 2 METs, Instruct on symptoms of exercise intolerance & actions to take, Instruct & monitor on saf, Assess intial functional capacity & safety risk and Other See below 30-day Reassessments 30 day Reassessments:: Progressing Reassessment Notes & Comments:: warm up encouraged Exercise - 60-day Assessment Physician Prescribed Exercise Modalities: SciFit Stepper Exercise - 90-day Assessment Physician Prescribed Exercise Modalities: SciFit Stepper Exercise - Final/Discharge Physician Prescribed Exercise Modalities: SciFit Stepper Nutrition - 30-Day Assessment Program Goals Nutrition Program Goals Patient has diagnosis of Hyperlipidemia (ICD E78)?: No Visit Date of Eval: 03/17/24 Session #:: 5 Cholesterol/Lipids (Other Core Measures) Determine presence & major risk factors that modify LDL goal: Hypertension or hypertensive medication, Low HDL cholesterol <40 mg/dL*, Family history of premature CHD in Male < 55 years: female <65 yearsFa and Age men > 45 years; women >/= 55 years Outcomes/Goals: Pt IDs own risk factors & lifestyle modifications by Session 10, Verbalizes symptoms of angina & response by session 3., Pt independently manages and Other Additional Outcomes/Goals: Intervention/Plan: Advocate for lipid panel cholesterol medication if applicable, Instruct on personal lipid levels & lipid goals/NCEP guidelines, Instruct on cholesterol and Other additional plan/int 30-day Reassessments:: Progressing Reassessment Notes & Comments:: risk factors reviewed Weight Mgt (Other Care) Height: 5 ft 4 in Weight:: 163 lb 8 oz BMI: 28.0 Diagnosis Overweight/Obesity BMI> 30% ICD-10 E66: No Diagnosis High BMI/Morbid Obesity BMI> 35% ICD-10 Z68: No Outcomes/Goals: Pt sets, maintains & shows weight loss goal & trend during rehab and Other additional outcomes/goals Intervention/Plan: Instruct on ideal BMI & set weight loss goal w/patient, Assist pt to ID & incorporate diet changes for weight loss by S9, Refer to Structured Weight Loss program as appropriate, Encourage goal of using 250-300dcal per session for weight loss and Other additional plan/interventions 30 day Reassessments:: Progressing Reassessment Notes & Comments:: pt to attend nutrition class Healthy Eating Habits Will attend diet classes:: Yes Outcomes/Goals:: Consume diet rich in vegs,fruits,whole grain/high fiber,fish,lean meat, Limit sat/trans fats,cholesterol & added salts & sugars and Other additional outcome/goals: Intervention/Plan:: Assess current eating habits and Other Additional plan/interventions 30-day Reassessments:: Progressing Reassessment Notes & Comments:: pt to attend nutrition class Education Gave educational materials for:: Signs & symptoms of hypoglycemia, Signs & symptoms of hyperglycemia, Relate diabetes to coronary artery disease and Healthy eating Nutrition - 60-Day Assessment Weight Mgt (Other Care) Height: 5 ft 4 in Weight:: 163 lb 8 oz BMI: 28.0 Core - 30-Day Assessment Visit Date of Eval: 03/17/24 Session #:: 5 Medication Compliance Preventative Medication(s):: Beta pippa and Warfarin/Coumadin H/O mental health issues: depression, anxiety, or addiction?: Yes Doesn?t believe in the benefits of treatment?: No Believes medications are unnecessary or harmful?: No Has a concern about medication side effects?: No Expresses concern over the cost of medications?: No Outcomes/Goals: Verbalizes medications,desired effect & common side effects @ DC, Pt self-reports following medication regimen, Keeps card in wallet w/medications listed by DC and Other additional outcome/goals: Interventions/plans: Instruct on medication effects & side effects, Review medication list w/patient every two weeks, Instruct importance of taking meds as ordered & assist problem solving and Other additional 30-day Reassessments:: Progressing Reassessment Notes & Comments:: pt encouraged to take her meds Tobacco Use Tobacco Use: Non-smoker Hypertension Hypertension Diagnosis:: Hypertension ICD-10 I10 Resting Blood Pressure:: 122/76 [place] [employer] Hypertension Guidelines Peak Exercise Blood Pressure:: 122/76 Outcomes/Goals: Able to verbalize/achieve optimal blood pressure <130/80, Incorporates diet changes & exercise for blood pressure control by DC and Other additional outcomes/goals Interventions/plan: Instruct on optimal blood pressure, hypertension & medications, Instruct on effects of sodium, alcohol, stress, exercise &hypertension and Other additional plan/interventions 30 day Reassessments:: Met Tobacco Cessation Referral Smoking Cessation Referral:: No Individual Education/Counseling:: No Education Schedule Given:: Yes Psychosocial - 30-Day Assess VIsit Date of Eval: 03/17/24 Session #:: 5 History of previous Mental disease:: Yes History of Emotional Disorders: Anxious (pt is on meds) and Dementia Target Goals Target Goals Outcomes/Goals: See list Psychosocial Outcomes/Goals:: ID's personal stressors & 2 strategies to manage stress by discharge and Other Additional outcome/goals: Intervention/Plan: See List Interventions/Plan:: Assess stressors,coping strategies & signs of derpression on admission, Instruct/assist pt to develop coping & personal stress Mgt strategies, Refer to Behavioral Health if appropriate, Refer to Physician if appropriate, Instruct patient to recognize signs & symptoms of depression, Instruct patient to recog and Other additional plan/intervention 30-day Reassessments: 30 day Reassessments:: Progressing Reassessment Notes & Comments:: pt is on meds Psychosocial - 60-Day Assess Target Goals Target Goals Outcomes/Goals: See list Psychosocial Outcomes/Goals:: ID's personal stressors & 2 strategies to manage stress by discharge and Other Additional outcome/goals: Psychosocial - 90-Day Assess Target Goals Target Goals Psychosocial - Final Assessmen Target Goals Target Goals Nutrition - 90-Day Assessment Weight Mgt (Other Care) Height: 5 ft 4 in Weight:: 163 lb 8 oz BMI: 28.0 Nutrition - Final Assessment Weight Mgt (Other Care) Height: 5 ft 4 in Weight:: 163 lb 8 oz BMI: 28.0
[2024-03-17 08:34] VITALS: BP 122/76; BMI 28.0
== END 2024-04-12 23:59 ==
LOC: CR 11:15
PROVIDERS: PCP Family Medicine Geriatric Medicine
DX: I07.1 Rheumatic tricuspid insufficiency (principal); Z95.4 Presence of other heart-valve replacement
CPT/HCPCS: 93798

== ENCOUNTER 2024-04-17 12:03 | Outpatient (RCR) | payer MEDICARE, MEDICAID, SELFPAY ==
[2024-03-17 08:34] VITALS: BMI 28.0
[2024-04-17 08:42] VITALS: BMI 30.9
[2024-04-17 12:46] LABS: Prothrombin Time (Protime)PT. 22.6 SECONDS (11.7-14.9)
[2024-04-17 13:02] LABS: BNP,B-Type NATRIURETIC PEPTIDE 1042.4 pg/mL (0-100)
[2024-04-17 13:05] LABS: ALB/GLOB Ratio 0.6 RATIO (0.9-2.4); AST(SGOT) 45 U/L (15-37); Alanine Aminotransfer ALT/SGPT 22 U/L (13-56); Albumin, Serum 2.8 g/dL (3.2-5.0); Alkaline Phosphatase 142 U/L (45-117); Anion Gap 5 (5-15); BUN 33 mg/dL (7-18); BUN/Creat Ratio 21.2 RATIO (10-20); Calcium,Total 9.4 mg/dL (8.5-10.1); Chloride 105 mmol/L (98-107); Creatinine, Serum 1.56 mg/dL (0.55-1.02); EST Glomerular Filtration Rate 37 mL/min (>60); Est Glom Filt Rate - Afr Amer 45 mL/min (>60); Glucose 109 mg/dL (74-106); Potassium 3.9 mmol/L (3.5-5.1); Protein, Total 7.8 g/dL (6.4-8.2); Sodium Level 137 mmol/L (136-145)
== END 2024-04-17 18:00 | disposition home or self-care (01) ==
LOC: LAB 12:03
PROVIDERS: PCP Family Medicine Geriatric Medicine; Referring Provider Family Medicine Geriatric Medicine; Visit Provider Family Medicine Geriatric Medicine
DX: I36.1 Nonrheumatic tricuspid (valve) insufficiency (principal); I11.0 Hypertensive heart disease with heart failure; R06.02 Shortness of breath
CPT/HCPCS: 36415; 80053; 83880; 85610

== ENCOUNTER 2024-04-19 12:33 | Emergency (ER) | payer MEDICARE, MEDICAID, SELFPAY ==
[2024-04-19 12:34] VITALS: BP 102/66; PULSE 83; RESP 16; TEMP 35.9; O2SAT 99; BMI 31.6
--- NOTE | 2024-04-19 13:19 | EKG12_ITS ---
Test Reason : Blood Pressure : / mmHG Vent. Rate : 082 BPM Atrial Rate : 082 BPM P-R Int : 164 ms QRS Dur : 138 ms QT Int : 364 ms P-R-T Axes : 064 -03 -03 degrees QTc Int : 425 ms Sinus rhythm with Premature atrial complexes Right bundle branch block Abnormal ECG Confirmed by DK GARCIA, BAM ([id number]), website/blog editor LUISA PRESTON ([id number]) on 04/24/2024 8:41:48 AM Referred By: Confirmed By:BEVERLY ROOT MD
--- NOTE | 2024-04-19 13:19 | CT_ITS ---
STUDY: CT ABDOMEN AND PELVIS WITHOUT CONTRAST REASON FOR EXAM: Female, 53 years old. Abdominal distention. Patient gained 15 pounds in 2 weeks. RADIATION DOSAGE (If Supplied By Facility): CTDIvol = ( 20.71 ) mGy, DLP = ( 1472.61 ) mGycm TECHNIQUE: Transaxial images were obtained from the dome of the diaphragm to the symphysis pubis without oral contrast, and without intravenous contrast. Sagittal and coronal images were reconstructed. Individualized dose optimization techniques were used for this CT. COMPARISON: Comparison is made with prior study June 22, 2022. FINDINGS: Minimal increased linear markings at the lung bases suggestive of scarring. Prior aortic valve replacement. Large right [place] hernia containing bowel as well as ascitic fluid. There is hepatomegaly with diffuse hepatic enlargement. Normal gallbladder and extrahepatic biliary system. There is mild splenomegaly. Normal pancreas. Normal bilateral adrenal glands. There is evidence of atrophy of the [place] kidneys. A transplanted kidney is seen in the right hemipelvis. Normal visualized stomach. Normal small intestine. Normal colon. The appendix is visualized and appears normal. Normal abdominal aorta. Normal inferior vena cava. Normal retroperitoneum. Normal urinary bladder. Fluid is also seen in the pelvis. Diffuse subcutaneous edema in the lower anterior abdominal wall with overlying skin thickening. Status post bilateral hip replacement. CT/Abdomen/Pelvis without Cont IMPRESSION: Large right-sided spiculated hernia containing ascitic fluid as well as nondistended bowel loops. Hepatosplenomegaly. Atrophy of the [place] kidneys. Transplanted kidney is seen in the right hemipelvis. Electronically Signed: Jonathan Garcia MD at 14:27 EDT ,
--- NOTE | 2024-04-19 13:20 | EX.ED.DYSGE1 ---
HPI History of Present Illness Chief Complaint: Edema Narrative Narrative: 53-year-old female past medical history of congestive heart failure, states she had a mitral valve replaced in December in [place] secondary to insufficiency, presents with 15 pound weight gain over the last few weeks. She states that after her surgery, she would have increased weight gain, but takes Bumex. Her band attacher, Dr. Watkins in [place] had upped her Bumex to 3 mg for about a week. When she presented to cardiac rehab today, they noticed that since March, she has had a 15 pound weight gain and weight in and around 184 pounds. She states that while she does not have it in her legs, it is usually in her abdomen which has become more distended. Prior to her surgery, she is to get paracentesis every few weeks because there was a collection of fluid she states. The last time that she was evaluated, they stated that there was not enough fluid to drain. She denies any chest pain or shortness of breath, no fevers or chills, no cough, she feels her abdomen may be slightly more distended. She states that she was sent here because of the weight gain. [facility] Medical History CKD (chronic kidney disease) stage 4, GFR 15-29 ml/min Wears glasses Wears dentures Post-menopausal Insulin dependent diabetes mellitus Uses wheelchair Walker as ambulation aid Ambulates with cane Lupus Fatty liver Gastric reflux Non-smoker CPAP (continuous positive airway pressure) dependence Shortness of breath on exertion History of echocardiogram History of stress test Cardiology follow-up encounter Obstructive sleep apnea CHF with right heart failure Diastolic CHF, chronic Right ventricular dilation Essential hypertension Osteopenia Vitamin D deficiency 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) Hypophosphatemia Hip pain Prolonged QT interval Chronic diarrhea Nonrheumatic mitral (valve) insufficiency Secondary pulmonary arterial hypertension Non-rheumatic tricuspid valve insufficiency Degenerative disc disease, cervical Cervical spondylosis Narcolepsy Lupus nephritis SLE (systemic lupus erythematosus) Home Medications ?Medication ?Instructions ?Recorded ?Last Taken ?Type prednisone 5 mg tablet 5 mg PO DAILY steroid for lupus 07/08/20 10/31/23 History levocetirizine 5 mg tablet 5 mg PO DAILY ALLERGIES 07/17/20 10/31/23 History blood sugar diagnostic #10 ea 11/04/20 Unknown History lancets 33 gauge #100 ea 11/04/20 Unknown History pregabalin 150 mg capsule 150 mg PO BID neuropathy 03/31/21 10/31/23 History OneTouch Verio test strips (blood #360 ea 04/17/21 Unknown Rx sugar diagnostic) hydroxychloroquine 200 mg tablet 200 mg PO DAILY antimalarial 07/08/21 10/31/23 History oxycodone 5 mg tablet 5 mg PO DAILY PRN PRN Pain 08/26/21 11/01/23 History acetaminophen 500 mg tablet 500 mg PO Q6H PRN pain/fever 11/25/21 Unknown History ketoconazole 2 % shampoo 1 applic topical DAILY hair loss 01/04/22 10/31/23 History desvenlafaxine succinate 100 mg 100 mg PO DAILY ANTIDEPRESSANT 02/19/22 10/31/23 History tablet,extended release 24 hr Dexcom G6 Auto Clutch Specialist (blood-glucose #1 ea 03/04/22 Unknown Rx meter,continuous) cevimeline 30 mg capsule (Evoxac) 1 cap PO TID dry mouth 05/05/22 10/31/23 History BD Ultra-Fine Mini Pen Needle 31 #100 ea 06/30/22 Unknown Rx gauge x 3/16 (pen needle, diabetic) mycophenolate mofetil 250 mg 500 mg PO BID anti rejection 03/04/23 10/31/23 History capsule (CellCept) cyclosporine 25 mg capsule 75 mg PO BID autoimmune suppresant 03/05/23 10/31/23 History lancets 33 gauge (OneTouch Delica 03/05/23 Unknown History Lancets) mirtazapine 15 mg tablet 30 mg PO QHS sleep 03/05/23 10/31/23 History Lactobacillus acidophilus 10 mg PO DAILY probiotic 04/01/23 10/31/23 History (Acidophilus capsule) clindamycin 1.2 % (1 % 1 applic topical DAILY acne 04/01/23 10/31/23 History base)-benzoyl peroxide 5 % topical gel betamethasone, augmented 0.05 % 1 applic topical Q12H PRN excema 06/09/23 10/31/23 History topical cream diclofenac sodium 1 % topical gel 2 g topical ONCE PRN pain 06/09/23 10/31/23 History (Voltaren Arthritis Pain) Humalog U-100 Insulin 100 unit/mL 100 unit subcut DAILY diabetes #90 12/27/23 Unknown Rx subcutaneous solution (insulin mL lispro) dapagliflozin propanediol 5 mg 5 mg PO DAILY #90 tabs 12/27/23 Unknown Rx tablet (Farxiga) alpha lipoic acid 600 mg capsule 600 mg PO DAILY neuropathy 02/17/24 Unknown History bumetanide 1 mg tablet 1 mg PO DAILY fluid retention 02/17/24 Unknown History carvedilol 6.25 mg tablet 6.25 mg PO BID 02/17/24 Unknown History fluticasone propionate 50 1 spray intranasal DAILY 02/17/24 Unknown History mcg/actuation nasal spray,suspension (Flonase Allergy Relief) sodium bicarbonate 650 mg tablet 1,950 mg PO DAILY 02/17/24 Unknown History warfarin 3 mg tablet See Rx Instructions PO .COMPLEX 02/17/24 Unknown History solriamfetol 75 mg tablet (Sunosi) 75 mg PO DAILY 03/09/24 Unknown History Dexcom G6 Sensor (blood-glucose #3 ea 03/10/24 Unknown Rx sensor) Dexcom G6 Transmitter #1 ea 03/10/24 Unknown Rx (blood-glucose transmitter) insulin pump cart,automated,BT #45 ea 04/07/24 Unknown Rx (Omnipod 5 G6 Pods (Gen 5) subcutaneous cartridge) Allergy/AdvReac Type Severity Reaction Status Date / Time LONG Inhibitors Allergy Angioedema Verified 04/19/24 12:37 adhesive Allergy Rash Verified 04/19/24 12:37 lisinopril Allergy Angioedema Verified 04/19/24 12:37 Sulfa (Sulfonamide Allergy Rash Verified 04/19/24 12:37 Antibiotics) sulfamethoxazole (From Allergy Rash Verified 04/19/24 12:37 Bactrim) trimethoprim (From Bactrim) Allergy Rash Verified 04/19/24 12:37 tuberculin, purified protein Allergy Unknown Verified 04/19/24 12:37 deriva Family History Mother Hypertension Kidney disease ALS (amyotrophic lateral sclerosis) Father Heart disease Hypertension Kidney disease Diabetes Brother Melanoma Surgical History Tricuspid valve replaced Transplant recipient History of dilation and curettage History of biopsy History of right hip replacement Hx of right heart catheterization Kidney transplant recipient Hip replacement planned History of left heart catheterization (03/08/20) revision of right hip arthroplasty (05/10/19) port removed Status post carpal tunnel release Status post total hip replacement, bilateral S/P lymph node biopsy S/P colonoscopy History of esophagogastroduodenoscopy (EGD) S/P nasal polypectomy Social History household members: family housing: house Smoking Status: Never smoker alcohol intake: never substance use type: does not use caffeine: No what type of physical activity do you participate in: other details: PT seatbelt use: always do you feel safe at home: Yes additional social history: Single ROS ROS ED ROS Narrative Constitutional: No fever, no chills. 15 pound weight gain over the last few weeks. HEENT: No sore throat. No neck pain. No loss of vision. No rhinorrhea. Cardiovascular: No chest pain. No palpitations. No pedal edema. Respiratory: No cough, no shortness of breath. Abdominal: No abdominal pain. No nausea. No vomiting. Positive abdominal distention. Genitourinary: No dysuria. No hematuria. Musculoskeletal: No myalgias. No arthralgias. Neurologic: No headaches. No dizziness. No lightheadedness. Skin: No rash. No change in color. Psychiatric: No depression. No anxiety. EXAM Physical Exam Narrative Exam Narrative: Afebrile. Vital signs noted. Nontoxic-appearing. Eating cookies while lying on cot. HEENT: Normocephalic. Atraumatic. PERRL, EOMI. Neck soft and supple. No point tenderness or step off. Cardiovascular: Regular rate and rhythm. No murmurs, rubs, or gallops appreciated. Respiratory: No tachypnea. Lungs clear to auscultation bilaterally. Gastrointestinal: Abdomen soft, nontender, with normoactive bowel sounds. No rebound or guarding. Mild abdominal distention. Positive ascites. Neurological: Awake. Alert. Nonfocal, nonlateralizing. Skin: No rash. Normal color. No pallor. Musculoskeletal: Trace bilateral symmetric pedal edema. Full range of motion extremities. Const Vital Signs: 04/19/24 12:34 04/19/24 13:11 04/19/24 14:34 Temperature 96.7 F L Temperature Source Temporal Pulse Rate 83 80 Respiratory Rate 16 18 Respiratory Effort Short of Breath Respiratory Pattern Normal Blood Pressure 102/66 93/65 Blood Pressure Mean 78 74 Pulse Ox 99 99 Oxygen Delivery Method Room Air Room Air MDM MDM MDM Narrative Medical decision making narrative: Differential diagnosis includes CHF exacerbation versus fluid collection/increasing ascites. I reviewed her prior problem list and she does have problems with ascites and had an echo in November prior to her surgery which showed ejection fraction of 60%. As she takes Coumadin although she has a bovine valve, INR will be obtained along with basic laboratory work. EKG was obtained and interpreted by myself independently as sinus rhythm with PACs at [address]pm [address] no acute [address] changes. No STEMI. I reviewed her CBC and she has normal white count of 7.1, hemoglobin 13.1, hematocrit 43.6, INR 1.9 as she is on warfarin. BNP is elevated at 951, but this appears to be around her baseline it has been higher in the past. There was a delay in her CMP and it is currently pending. I reviewed the radiology report of the CT of the abdomen pelvis without contrast. She does have a hernia with nondistended bowel loops, and ascites. I do not feel that she merits an emergent paracentesis. I do feel that she could be discharged as long as her CMP is acceptable, offer outpatient paracentesis as needed. She is not hypoxic or having respiratory difficulty. I did review her CMP, and her sodium was normal at 137, potassium normal at 4.1, chloride 106, anion gap normal at 8, BUN is elevated at 33 with a creatinine of 1.79 but she has history of chronic kidney disease. Glucose elevated at 130. AST is 51 which think is nonspecific, normal ALT of 20. Alk phos of 158. At this point in time, she is ambulatory to the bathroom. Once again, I do not feel that she needs to be admitted and I do not feel she needs emergent paracentesis. She was given Bumex 1 mg intravenously as she related history that she had been increased to 3 mg in the past by her band attacher. I feel she can be discharged to follow-up with her band attacher in [place] for further recommendations regarding diuretics and her increased weight gain over weeks. Disposition is discharged home in stable condition. History & Record Review Discussion w/independent historian: Patient Additional record(s) reviewed:: Prior labs Lab Data Attestation: I reviewed the patient's lab results. Labs: Laboratory Results - last 24 hr 04/19/24 13:44 WBC 7.1 RBC 4.54 Hgb 13.1 Hct 43.6 MCV 96.0 MCH 28.9 MCHC 30.0 L RDW Std Deviation 61.8 H RDW Coeff of Jah 18.3 H Plt Count 159 MPV 10.9 Immature Gran % (Auto) 0.600 Neut % (Auto) 74.7 H Lymph % (Auto) 10.3 L Ness % (Auto) 12.4 H Eos % (Auto) 1.4 Baso % (Auto) 0.6 Absolute Neuts (auto) 5.3 Absolute Lymphs (auto) 0.73 L Nucleated RBC % 0 PT 22.1 H INR 1.9 Sodium 137 Potassium 4.1 Chloride 106 Carbon Dioxide 23.0 Anion Gap 8 BUN 33 H Creatinine 1.79 H Estim Creat Clear Calc 38.91 Est GFR (MDRD) Af Amer 38 L Est GFR (MDRD) Non-Af 32 L BUN/Creatinine Ratio 18.4 Glucose 130 H Calcium 9.2 Total Bilirubin 1.80 H AST 51 H ALT 20 Alkaline Phosphatase 158 H B-Natriuretic Peptide 951.7 H Total Protein 8.3 H Albumin 3.0 L Globulin 5.3 H Albumin/Globulin Ratio 0.6 L Radiography Diagnostic Testing: Clinical Impression(s) from Imaging Studies Abdomen/Pelvis CT 04/19/24 13:19 IMPRESSION: Large right-sided spiculated hernia containing ascitic fluid as well as nondistended bowel loops. Hepatosplenomegaly. Atrophy of the [place] kidneys. Transplanted kidney is seen in the right hemipelvis. Electronically Signed: Jonathan Garcia MD at 14:27 EDT , Discharge Plan Triage Chief Complaint: Edema ED Provider: Josafat Payton Dx/Rx/DC Orders Clinical Impression: CHF with right heart failure, Ascites, Weight gain Prescriptions: No Action (DME) blood sugar diagnostic Strip See Rx Instructions .ROUTE .MEDSUPPLY Qty: 10 Patient Comments: use 1 TEST STRIP to TEST BLOOD SUGAR daily Rx Instructions: As directed (DME) lancets 33 gauge misc See Rx Instructions .ROUTE .MEDSUPPLY Qty: 100 Patient Comments: use 1 LANCET to TEST BLOOD SUGAR daily Rx Instructions: As directed pregabalin 150 mg capsule 150 mg PO BID oxycodone 5 mg tablet 5 mg PO DAILY PRN PRN (Reason: Pain) acetaminophen 500 mg tablet 500 mg PO Q6H PRN (Reason: pain/fever) mirtazapine 15 mg tablet 30 mg PO QHS desvenlafaxine succinate 100 mg tablet extended release 24 hr 100 mg PO DAILY cevimeline [Evoxac] 30 mg capsule 1 cap PO TID mycophenolate mofetil [CellCept] 250 mg capsule 500 mg PO BID Acidophilus Capsule 10 mg PO DAILY clindamycin-benzoyl peroxide 1.2 %(1 % base) -5 % gel 1 applic topical DAILY bumetanide 1 mg tablet 1 mg PO DAILY Rx Instructions: Take 1 extra if a 3+ weight gain in a 24hr period (DME) lancets [OneTouch Delica Lancets] [facility] See Rx Instructions .ROUTE .MEDSUPPLY Rx Instructions: 4x/day betamethasone, augmented 0.05 % cream 1 applic topical Q12H PRN (Reason: excema) Patient Comments: TAKING NEEDED diclofenac sodium [Voltaren Arthritis Pain] 1 % gel 2 g topical ONCE PRN (Reason: pain) Rx Instructions: apply to single elbow, wrist or hand; for hand includes palm/fingers/back of hand carvedilol 6.25 mg tablet 6.25 mg PO BID warfarin 3 mg tablet See Rx Instructions PO .COMPLEX Rx Instructions: TUES, THLEATHA, SAT 4.5mg and 3mg other days fluticasone propionate [Flonase Allergy Relief] 50 mcg/actuation spray,suspension 1 spray intranasal DAILY Rx Instructions: administer into each nostril sodium bicarbonate 650 mg tablet 1,950 mg PO DAILY Sunosi 75 mg tablet 75 mg PO DAILY hydroxychloroquine 200 mg tablet 200 mg PO DAILY Patient Comments: lupus prednisone 5 mg tablet 5 mg PO DAILY levocetirizine 5 MG tablet 5 mg PO DAILY ketoconazole 2 % Shampoo 1 applic TOPICAL DAILY cyclosporine 25 mg capsule 75 mg PO BID alpha lipoic acid 600 mg capsule 600 mg PO DAILY (DME) Information Systems AssociatesTouch Verio test strips Strip See Rx Instructions .ROUTE .MEDSUPPLY Qty: 360 3RF Rx Instructions: As directed up to 4x daily to monitor glucose levels (DME) Dexcom G6 Auto Clutch Specialist Misc See Rx Instructions .Route Qty: 1 0RF Rx Instructions: As directed (DME) pen needle, diabetic [BD Ultra-Fine Mini Pen Needle] 31 gauge x 3/16 needle See Rx Instructions .ROUTE .MEDSUPPLY Qty: 100 3RF Rx Instructions: 3x/day insulin lispro [Humalog U-100 Insulin] 100 unit/mL solution 100 unit subcut DAILY Qty: 90 1RF Patient Comments: 3 unit basal rate, bolus with meals based on carb intake Rx Instructions: via pump Farxiga 5 mg tablet 5 mg PO DAILY Qty: 90 1RF (DME) Dexcom G6 Sensor Device See Rx Instructions .Route Qty: 3 3RF Rx Instructions: 1 sensor q 10 days (DME) Dexcom G6 Transmitter Device See Rx Instructions .Route Qty: 1 1RF Rx Instructions: 1 q 90 days (DME) Omnipod 5 G6 Pods (Gen 5) Cartridge See Rx Instructions .Route Qty: 45 1RF Rx Instructions: 1 pod q 48 hours Primary Care Provider: Mitchell Bowen Chi Referrals: Mitchell Bowen Chi, MD [Primary Care Provider] - Print Language: Tajik Disposition Disposition: Home, Self Care
[2024-04-19 13:55] LABS: Absolute Lymphocyte Count 0.73 X10^3/uL (0.83-4.51); Absolute Neutrophil Count 5.3 X10^3/uL (2.0-7.7); Basophil# 0.04 X10^3/uL; Basophil% 0.6 % (0-1); Eosinophils% 1.4 % (0-5); Hematocrit 43.6 % (37-47); Hemoglobin 13.1 g/dL (12.0-15.0); Lymphocyte # 0.73 X10^3/ul (0.83-4.51); Lymphocyte % 10.3 % (19-41); Mean Corpuscular Hgb 28.9 pg (27.0-32.0); Mean Platelet Vol. 10.9 fl (6.2-12.0); Monocyte# 0.88 X10^3/uL; Monocyte% 12.4 % (0-10); NRBC Flagged by Analyzer 0 % (0-5); Neutrophil # 5.32 X10^3/uL (2.7-7.7); Neutrophil % 74.7 % (47-70); Platelet Count 159 K/mm3 (150-450); RBC Distribution Width CV 18.3 % (11.6-14.6); RBC Distribution Width SD 61.8 fl (35.1-43.9); Red Blood Count 4.54 M/mm3 (4.2-5.4); White Blood Count 7.1 K/mm3 (4.4-11.0)
[2024-04-19 14:03] LABS: International Normalized Ratio 1.9; Prothrombin Time (Protime)PT. 22.1 SECONDS (11.7-14.9)
[2024-04-19 14:14] LABS: BNP,B-Type NATRIURETIC PEPTIDE 951.7 pg/mL (0-100)
[2024-04-19 14:34] VITALS: BP 93/65; PULSE 80; RESP 18; O2SAT 99
[2024-04-19 15:57] LABS: ALB/GLOB Ratio 0.6 RATIO (0.9-2.4); AST(SGOT) 51 U/L (15-37); Alanine Aminotransfer ALT/SGPT 20 U/L (13-56); Alkaline Phosphatase 158 U/L (45-117); Anion Gap 8 (5-15); BUN 33 mg/dL (7-18); BUN/Creat Ratio 18.4 RATIO (10-20); Calcium,Total 9.2 mg/dL (8.5-10.1); Chloride 106 mmol/L (98-107); Creatinine, Serum 1.79 mg/dL (0.55-1.02); EST Glomerular Filtration Rate 32 mL/min (>60); Est Glom Filt Rate - Afr Amer 38 mL/min (>60); Estimated Creatinine Clearance 38.91 ml/min; Globulin 5.3 g/dL (2.2-4.2); Glucose 130 mg/dL (74-106); Potassium 4.1 mmol/L (3.5-5.1); Protein, Total 8.3 g/dL (6.4-8.2); Sodium Level 137 mmol/L (136-145)
[2024-04-19 16:00] VITALS: BP 105/66; PULSE 80; RESP 20; O2SAT 99
[2024-04-19] MEDS: Bumetanide 1 MG/4 ML Vial IV (16:07)
[2024-04-19 16:09] VITALS: BP 93/65; PULSE 75; RESP 22; TEMP 36.7; O2SAT 99
== END 2024-04-19 16:12 | disposition home or self-care (01) ==
PROVIDERS: Emergency Provider Emergency Medicine; PCP Family Medicine Geriatric Medicine; Visit Provider Emergency Medicine
DX: I13.0 Hypertensive heart and chronic kidney disease with heart failure and stage 1 through stage 4 chronic kidney disease, or unspecified chronic kidney disease (principal); N18.4 Chronic kidney disease, stage 4 (severe); I50.812 Chronic right heart failure; I50.32 Chronic diastolic (congestive) heart failure; E11.22 Type 2 diabetes mellitus with diabetic chronic kidney disease; Z79.4 Long term (current) use of insulin; R18.8 Other ascites; R63.5 Abnormal weight gain; Z94.0 Kidney transplant status; Z68.31 Body mass index [BMI] 31.0-31.9, adult; Z79.01 Long term (current) use of anticoagulants; Z79.899 Other long term (current) drug therapy
CPT/HCPCS: 74176; 80053; 83880; 85025; 85610; 93005; 96374; 99284; A4216

== ENCOUNTER → 2024-04-28 | Outpatient (CLI) | payer MEDICARE, MEDICAID, SELFPAY ==
[2024-04-17 08:42] VITALS: BMI 30.9
[2024-04-28 12:12] VITALS: BP 107/65; PULSE 80; RESP 16; TEMP 36.5; O2SAT 96
[2024-04-28] MEDS: Lidocaine 2% (20 ml mdv) 20 ML Vial INFILT (12:13)
[2024-04-28 12:15] VITALS: BP 105/69; PULSE 71; RESP 16; O2SAT 97
[2024-04-28 12:30] VITALS: BP 100/67; PULSE 69; RESP 18; O2SAT 96
--- NOTE | 2024-04-28 12:35 | PCM.OP.PRO ---
Procedure Report Date of Procedure: 04/28/24 Assessment & Plan Assessment/Plan (1) Ascites: QUALIFIERS: Ascites type: other type Qualified Code(s): R18.8 - Other ascites PLAN: PROCEDURE: Ultrasound guided paracentesis ORDERING PROVIDER: Dr. Bowen INDICATION: Female, 53 years old. Ascites. PROVIDER: YAMIL Lock TECHNIQUE: The risks, benefits, and alternatives to the procedure were explained to the patient. The specific risks of bleeding, infection, and damage to bowel were detailed and accepted. Witnessed informed consent was obtained. The abdomen was ultrasonographically surveyed. An appropriate pocket of fluid was identified in the right lower quadrant. The skin was prepped with chlorhexidine and sterile field established. 2% lidocaine was used for local anesthetic. Using ultrasound guidance, the peritoneal cavity was accessed with a 5-[place] paracentesis needle/catheter system. The trocar was removed. A total of 1000 ml of cloudy red colored fluid was removed from the peritoneal cavity. The catheter was removed and a sterile dressing was applied. The procedure was well tolerated. IMPRESSION: Successful ultrasound-guided paracentesis with right lower quadrant access site. Procedures Radiology Radiology [place] Procedures: [id number] Paracentesis
== END | disposition home or self-care (01) ==
LOC: US 12:02
PROVIDERS: PCP Family Medicine Geriatric Medicine; Referring Provider Family Medicine Geriatric Medicine; Visit Provider Family Medicine Geriatric Medicine
DX: R18.8 Other ascites (principal)
CPT/HCPCS: 49083

== ENCOUNTER → 2024-05-11 | Outpatient (CLI) | payer MEDICARE, MEDICAID, SELFPAY ==
[2024-04-17 08:42] VITALS: BMI 30.9
[2024-05-11 10:36] VITALS: BP 90/57; PULSE 80; RESP 18; TEMP 37; O2SAT 97
[2024-05-11 10:45] VITALS: BP 97/56; PULSE 80; RESP 18; O2SAT 98
[2024-05-11 10:53] VITALS: BP 99/62; PULSE 72; RESP 18; TEMP 36.9; O2SAT 100
[2024-05-11] MEDS: Lidocaine 2% (20 ml mdv) 20 ML Vial INFILT (11:07)
--- NOTE | 2024-05-11 11:44 | PCM.OP.PRO ---
Procedure Report Date of Procedure: 05/11/24 Assessment & Plan Assessment/Plan (1) Ascites: QUALIFIERS: Ascites type: other type Qualified Code(s): R18.8 - Other ascites PLAN: PROCEDURE: Ultrasound guided paracentesis ORDERING PROVIDER: Dr. Bowen INDICATION: Female, 53 years old. Ascites. PROVIDER: YAMIL Lock TECHNIQUE: The risks, benefits, and alternatives to the procedure were explained to the patient. The specific risks of bleeding, infection, and damage to bowel were detailed and accepted. Witnessed informed consent was obtained. The abdomen was ultrasonographically surveyed. An appropriate pocket of fluid was identified in the right lower quadrant. The skin was prepped with chlorhexidine and sterile field established. 2% lidocaine was used for local anesthetic. Using ultrasound guidance, the peritoneal cavity was accessed with a 5-[place] paracentesis needle/catheter system. The trocar was removed. A total of 800 ml of clear pink colored fluid was removed from the peritoneal cavity. The catheter was removed and a sterile dressing was applied. The procedure was well tolerated. IMPRESSION: Successful ultrasound-guided paracentesis with right lower quadrant access site. Procedures Radiology Radiology US Procedures: [id number] Paracentesis
== END | disposition home or self-care (01) ==
LOC: US 10:19
PROVIDERS: PCP Family Medicine Geriatric Medicine; Referring Provider Family Medicine Geriatric Medicine; Visit Provider Family Medicine Geriatric Medicine
DX: R18.8 Other ascites (principal)
CPT/HCPCS: 49083

== ENCOUNTER 2024-05-12 11:15 | Outpatient (RCR) | payer MEDICARE, MEDICAID, SELFPAY ==
[2024-03-17 08:34] VITALS: BMI 28.0
[2024-04-13 00:24] VITALS: BP 122/76
--- NOTE | 2024-04-17 08:28 | PCM.CR.ITP ---
Exercise - Initial Assessment Physician Prescribed Exercise Modalities: FameBitFit Stepper Nutrition - Initial Assessment Weight Mgt (Other Care) Height: 5 ft 4 in Weight:: 180 lb 8 oz BMI: 30.9 Psychosocial - Initial Assess Target Goals Target Goals Patient Health Questionnaire PHQ-9 Screening 60-Day Re-eval Assessment: 1. Little interest or pleasure in doing things: More than half the days 2. Feeling down, depressed, or hopeless: More than half the days 3. Trouble falling or staying asleep, or sleeping too much: Nearly every day 4. Feeling tired or having little energy: Nearly every day 5. Poor appetite or overeating: Nearly every day 6. Feeling bad about yourself -- or that you are a failure or have let yourself or your family down: Several days 7. Trouble concentrating on things, such as reading the newspaper or watching television: More than half the days 8. Moving or speaking so slowly that other people could have noticed. Or the opposite - being so fidgety or restless that you have been moving around a lot more than usual: Several days 9. Thoughts that you would be better off , or of hurting yourself in some way: Not at all How difficult have these problems made it for you to do your work, take care of things at home, or get along with other people?: Somewhat difficult Total Score: 17 Self-Efficacy 6-Item Scale 60-Day Re-eval Assessment: We would like to know how confident you are in doing certain activities. Please select your confidence level for: Fatigue Select Number: 2 Physical Discomfort or Pain Select Number: 3 Emotional Distress Select Number: 8 Other Symptoms or Health Problems Select Number: 2 Different Tasks and Activities Select Number: 7 Medication Select Number: 4 Total Score:: 4 Nutrition Survey Nutrition Survey Instructions Scoring Instructions Exercise - 30-day Assessment Physician Prescribed Exercise Modalities: Movigo Stepper Exercise - 60-day Assessment Visit Date of Eval: 04/17/24 Session #:: 16 Physician Prescribed Exercise Modalities: Movigo Stepper Frequency: 3x/week for 12 weeks [36 sessions] Intensity: 60-80% of age predicted maximum heart rate reserve Duration: 30 - 45 minutes Current METSs:: 3 Target Heart Rate:: 101-127 Current RPE:: 10-13 Maximum Excercise HR:: 95 Resting Blood Pressure: 106/54 Maximum Exercise Blood Pressure: 110/78 EKG Type: NSR to ST w/BBB with frequent pac's, rare pvc. Outcomes & Goals Goals:: Verbalizes understanding of THR, RPE & goal METS by session 6, Documents in home exercise log/reports 30 min aerobic 5 day/wk by DC, Demonstrates accurate pulse taking by DC and Other additional outcome/goals: see below Intervention & Plan Exercise Program Goals: Instruct on personal THR & RPE, Instruct on MET level & personal MET goal, Show patient to take own pulse /validate performance until accurate, Instruct on home exercise and Other additional plan/int 30-day Reassessments 30 day Reassessments:: Progressing Reassessment Notes & Comments:: THR explained Physical Activity Home Exercise Physical Activity - Home Exercise: Safe Exercise, Warm-up, Self-monitoring, Cool-Down, Home Exercise > 30 min Daily and Sitting Time <3 hours/daily Outcomes & Goals Outcomes/Goals: Demonstrates correct Warm-up/exercise Cool-Down (S3) if = 2.5 METs, Verbalizes symptoms of exercise intolerance by Session 3 (S3), Demonstrate safe equipment use (S3) & follows exercise prescrition (6) and Other: See below Intervention & Plan Plan/Intervention: Instruct warm-up & cool-down if exercising at > 2 METs, Instruct on symptoms of exercise intolerance & actions to take, Instruct & monitor on saf, Assess intial functional capacity & safety risk and Other See below 30-day Reassessments 30 day Reassessments:: Progressing Reassessment Notes & Comments:: cool down encouraged Exercise - 90-day Assessment Physician Prescribed Exercise Modalities: SciFit Stepper Exercise - Final/Discharge Physician Prescribed Exercise Modalities: SciFit Stepper Nutrition - 30-Day Assessment Weight Mgt (Other Care) Height: 5 ft 4 in Weight:: 180 lb 8 oz BMI: 30.9 Nutrition - 60-Day Assessment Program Goals Nutrition Program Goals Patient has diagnosis of Hyperlipidemia (ICD E78)?: No Visit Date of Eval: 04/17/24 Session #:: 16 Cholesterol/Lipids (Other Core Measures) Determine presence & major risk factors that modify LDL goal: Hypertension or hypertensive medication, Low HDL cholesterol <40 mg/dL*, Family history of premature CHD in Male < 55 years: female <65 yearsFa and Age men > 45 years; women >/= 55 years Outcomes/Goals: Pt IDs own risk factors & lifestyle modifications by Session 10, Verbalizes symptoms of angina & response by session 3., Pt independently manages and Other Additional Outcomes/Goals: Intervention/Plan: Advocate for lipid panel cholesterol medication if applicable, Instruct on personal lipid levels & lipid goals/NCEP guidelines, Instruct on cholesterol and Other additional plan/int Referral to dietitian:: Yes 30-day Reassessments:: Progressing Reassessment Notes & Comments:: referral to telecommunication engineer Diabetes (Other Core Measures) Diabetes Type: Diagnosis Type II ICD-10 E11 Insulin dependent injection/pump?: Yes Non-Insulin Dependent?: Yes Do you monitor your blood sugar at home?: Yes Referral to Diabetic Clinic:: Yes Outcomes/Goals:: Able to state symptoms of, Able to state, Able to state and Other additional Intervention/Plan:: Instruct on, Refer to, Instruct on and Other 30-day Reassessments:: Progressing Reassessment Notes & Comments:: referral to telecommunication engineer Weight Mgt (Other Care) Height: 5 ft 4 in Weight:: 180 lb 8 oz BMI: 30.9 Diagnosis Overweight/Obesity BMI> 30% ICD-10 E66: Yes Diagnosis High BMI/Morbid Obesity BMI> 35% ICD-10 Z68: No Outcomes/Goals: Pt sets, maintains & shows weight loss goal & trend during rehab and Other additional outcomes/goals Intervention/Plan: Instruct on ideal BMI & set weight loss goal w/patient, Assist pt to ID & incorporate diet changes for weight loss by S9, Refer to Structured Weight Loss program as appropriate, Encourage goal of using 250-300dcal per session for weight loss and Other additional plan/interventions 30 day Reassessments:: Progressing Reassessment Notes & Comments:: pt o attend nutritin class Healthy Eating Habits Will attend diet classes:: Yes Outcomes/Goals:: Consume diet rich in vegs,fruits,whole grain/high fiber,fish,lean meat, Limit sat/trans fats,cholesterol & added salts & sugars and Other additional outcome/goals: Intervention/Plan:: Assess current eating habits and Other Additional plan/interventions 30-day Reassessments:: Progressing Reassessment Notes & Comments:: pt to attend nutrition class Education Gave educational materials for:: Signs & symptoms of hypoglycemia, Signs & symptoms of hyperglycemia, Relate diabetes to coronary artery disease and Healthy eating Core - 60-Day Assessment Visit Date of Eval: 04/17/24 Session #:: 16 Medication Compliance Preventative Medication(s):: Beta pippa and Warfarin/Coumadin H/O mental health issues: depression, anxiety, or addiction?: Yes Doesn?t believe in the benefits of treatment?: No Believes medications are unnecessary or harmful?: No Has a concern about medication side effects?: No Expresses concern over the cost of medications?: No Outcomes/Goals: Verbalizes medications,desired effect & common side effects @ DC, Pt self-reports following medication regimen, Keeps card in wallet w/medications listed by DC and Other additional outcome/goals: Interventions/plans: Instruct on medication effects & side effects, Review medication list w/patient every two weeks, Instruct importance of taking meds as ordered & assist problem solving and Other additional 30-day Reassessments:: Progressing Reassessment Notes & Comments:: pt encouraged to take her meds Tobacco Use Tobacco Use: Non-smoker Hypertension Hypertension Diagnosis:: Hypertension ICD-10 I10 Resting Blood Pressure:: 106/54 [place] [employer] Hypertension Guidelines Peak Exercise Blood Pressure:: 110/78 Outcomes/Goals: Able to verbalize/achieve optimal blood pressure <130/80, Incorporates diet changes & exercise for blood pressure control by DC and Other additional outcomes/goals Interventions/plan: Instruct on optimal blood pressure, hypertension & medications, Instruct on effects of sodium, alcohol, stress, exercise &hypertension and Other additional plan/interventions 30 day Reassessments:: Met Tobacco Cessation Referral Smoking Cessation Referral:: No Individual Education/Counseling:: No Education Schedule Given:: Yes Psychosocial - 30-Day Assess Target Goals Target Goals Outcomes/Goals: See list Psychosocial Outcomes/Goals:: ID's personal stressors & 2 strategies to manage stress by discharge and Other Additional outcome/goals: Psychosocial - 60-Day Assess VIsit Date of Eval: 04/17/24 Session #:: 16 History of previous Mental disease:: Yes History of Emotional Disorders: Anxious and Depression (pt is on meds) Target Goals Target Goals Outcomes/Goals: See list Psychosocial Outcomes/Goals:: ID's personal stressors & 2 strategies to manage stress by discharge and Other Additional outcome/goals: Intervention/Plan: See List Interventions/Plan:: Assess stressors,coping strategies & signs of derpression on admission, Instruct/assist pt to develop coping & personal stress Mgt strategies, Refer to Behavioral Health if appropriate, Refer to Physician if appropriate, Instruct patient to recognize signs & symptoms of depression, Instruct patient to recog and Other additional plan/intervention 30-day Reassessments: 30 day Reassessments:: Progressing Reassessment Notes & Comments:: pt is on meds Psychosocial - 90-Day Assess Target Goals Target Goals Psychosocial - Final Assessmen Target Goals Target Goals Nutrition - 90-Day Assessment Weight Mgt (Other Care) Height: 5 ft 4 in Weight:: 180 lb 8 oz BMI: 30.9 Nutrition - Final Assessment Weight Mgt (Other Care) Height: 5 ft 4 in Weight:: 180 lb 8 oz BMI: 30.9
[2024-04-17 08:42] VITALS: BP 106/54
== END 2024-05-13 23:59 ==
LOC: CR 11:15
PROVIDERS: PCP Family Medicine Geriatric Medicine
DX: I07.1 Rheumatic tricuspid insufficiency (principal); Z95.4 Presence of other heart-valve replacement
CPT/HCPCS: 93798

== ENCOUNTER → 2024-05-23 | Outpatient (CLI) | payer MEDICARE, MEDICAID, SELFPAY ==
[2024-05-18 07:15] VITALS: BMI 31.2
--- NOTE | 2024-05-23 15:05 | ECHOD_ITS ---
Reason For Study: TR Procedure This was a 2D Doppler, Color Flow transthoracic echocardiogram. Myocardial strain analysis was performed in this exam to aid in the assessment of cardiac function. Exam performed in department. Left Ventricle Normal LV size. Moderate concentric left ventricular hypertrophy. The left ventricular ejection fraction is 60 %. Stage 2 diastolic dysfunction. No regional wall motion abnormalities noted. Right Ventricle Normal RV size. Normal systolic function. Atria The left atrium is mildly enlarged. Normal right atrium. Mitral Valve Normal mitral valve. Systolic anterior motion of the mitral valve. Mild (1+) eccentric mitral valve insufficiency. Tricuspid Valve Mild (1+) tricuspid valve insufficiency. Pulmonary artery systolic pressure is 23 mmHg. Normal prosthetic tricuspid valve. Aortic Valve Trisinus/trileaflet aortic valve. Pulmonic Valve Normal pulmonic valve. Great Vessels Normal aortic root. The pulmonary artery is normal size. Normal inferior vena cava. Pericardium/Pleural No pericardial effusion. MMode/2D Measurements & Calculations LVIDd: 4.8 cm IVSd: 1.5 cm Ao root diam: 2.8 cm LVIDs: 3.4 cm LVPWd: 1.2 cm RVDd: 5.6 cm FS: 28.7 % LAV(MOD-bp): 57.3 ml LVAd ap4: 22.9 cm2 SV(MOD-sp4): 34.4 ml LAV(MOD-bp) Indexed: 30.7 ml/m2 LVLd ap4: 6.9 cm LAV(MOD-sp2): 50.7 ml EDV(MOD-sp4): 61.9 ml LAV(MOD-sp4): 50.8 ml EDV(sp4-el): 64.9 ml LVAs ap4: 13.8 cm2 LVLs ap4: 5.9 cm ESV(MOD-sp4): 27.6 ml ESV(sp4-el): 27.4 ml EF(MOD-sp4): 55.5 % EF(sp4-el): 57.9 % SV(sp4-el): 37.6 ml LA A4 area: 20.1 cm2 LA dimension(2D): 4.0 cm RA A4 area: 18.9 cm2 TAPSE: 1.1 cm Time Measurements MV dec time: 0.16 sec Doppler Measurements & Calculations MV E max ortiz: 94.7 cm/sec Lat Peak E' Ortiz: 9.9 cm/sec Med Peak E' Ortiz: 4.2 cm/sec MV A max ortiz: 56.0 cm/sec E/E' lat: 9.5 E/E' med: 22.8 MV E/A: 1.7 Ao V2 max: 141.2 cm/sec LV V1 max: 121.3 cm/sec MV dec slope: 578.0 cm/sec2 Ao max P.0 mmHg LV V1 max P.9 mmHg Ao V2 mean: 107.1 cm/sec Ao mean P.0 mmHg Ao V2 VTI: 25.0 cm TV V2 max: 162.3 cm/sec PA V2 max: 88.2 cm/sec TR max ortiz: 215.7 cm/sec TV max P.7 mmHg TR max P.6 mmHg TV V2 mean: 107.7 cm/sec TV mean P.3 mmHg ECHO/Echo Complete Interpretation Summary Normal LV size. Moderate concentric left ventricular hypertrophy. The left ventricular ejection fraction is 60 %. Stage 2 diastolic dysfunction. Normal prosthetic tricuspid valve. Mild (1+) tricuspid valve insufficiency. Ordering Physician: SCARLET LAFLEUR Referring Physician: Mitchell Bowen Chi Performed By: Ellen Simon, RDCS, RVT
== END | disposition home or self-care (01) ==
LOC: CVS 15:03
PROVIDERS: PCP Family Medicine Geriatric Medicine
DX: I36.1 Nonrheumatic tricuspid (valve) insufficiency (principal)
CPT/HCPCS: 93306

== ENCOUNTER → 2024-05-25 | Outpatient (CLI) | payer MEDICARE, MEDICAID, SELFPAY ==
[2024-05-18 07:15] VITALS: BMI 31.2
[2024-05-25 14:01] LABS: Absolute Lymphocyte Count 1.06 X10^3/uL (0.83-4.51); Absolute Neutrophil Count 4.8 X10^3/uL (2.0-7.7); Basophil# 0.02 X10^3/uL; Basophil% 0.3 % (0-1); Eosinophil# 0.18 X10^3/uL; Eosinophils% 2.6 % (0-5); Hematocrit 42.2 % (37-47); Lymphocyte # 1.06 X10^3/ul (0.83-4.51); Lymphocyte % 15.1 % (19-41); Mean Corp Hgb Conc 30.8 g/dL (32-36); Mean Corpuscular Hgb 29.2 pg (27.0-32.0); Mean Corpuscular Volume 94.8 fL (81-99); Mean Platelet Vol. 11.1 fl (6.2-12.0); Monocyte% 12.8 % (0-10); NRBC Flagged by Analyzer 0 % (0-5); Neutrophil % 68.2 % (47-70); Platelet Count 165 K/mm3 (150-450); RBC Distribution Width CV 17.2 % (11.6-14.6); RBC Distribution Width SD 58.4 fl (35.1-43.9); Red Blood Count 4.45 M/mm3 (4.2-5.4)
[2024-05-25 14:30] LABS: Hemoglobin A1c 6.4 % (3.8-5.6)
[2024-05-25 14:34] LABS: ALB/GLOB Ratio 0.5 RATIO (0.9-2.4); AST(SGOT) 43 U/L (15-37); Alanine Aminotransfer ALT/SGPT 18 U/L (13-56); Albumin, Serum 2.8 g/dL (3.2-5.0); Alkaline Phosphatase 158 U/L (45-117); Anion Gap 8 (5-15); BUN 29 mg/dL (7-18); BUN/Creat Ratio 14.6 RATIO (10-20); Calcium,Total 9.4 mg/dL (8.5-10.1); Chloride 104 mmol/L (98-107); Cholesterol 135 mg/dL (200); Creatinine, Serum 1.98 mg/dL (0.55-1.02); EST Glomerular Filtration Rate 28 mL/min (>60); Est Glom Filt Rate - Afr Amer 34 mL/min (>60); Globulin 5.2 g/dL (2.2-4.2); Glucose 205 mg/dL (74-106); High Density Lipoprotein 49 mg/dL; Sodium Level 139 mmol/L (136-145); Triglycerides 167 mg/dL; Very Low Density Lipoprotein 33 mg/dL (5-40)
[2024-05-25 14:53] LABS: Mucous, Urine 0 SEEN /hpf (<or=2+)
[2024-05-25 15:30] LABS: Color, Urine Yellow (Yellow); Glucose, Dipstick 250 mg/dl (Normal); Ketone-Dipstick Negative (Negative); Leukocyte Esterase-Dipstick 500 /ul (Negative); Nitrite-Dipstick Negative (Negative); Occult Blood-Urine 10 /ul (Negative); Protein-Dipstick 15 mg/dl (Negative); Urine Bilirubin Dipstick Negative (Negative); Urine Clarity Sl. Cloudy (Clear); Urine Urobilinogen Normal (Normal)
[2024-05-25 16:05] LABS: Bacteria 4+ /hpf (None Seen); Red Blood Cells-Urine 0-5 SEEN /hpf (0-5); Squamous Epithelial Cells - UA 0-5 SEEN /hpf (5-10); Transitional Epithelial - Ur 0-5 SEEN /hpf (0-5); White Blood Cells 5-10 SEEN /hpf (0-5)
== END | disposition home or self-care (01) ==
LOC: POLAB3 13:30
PROVIDERS: PCP Family Medicine Geriatric Medicine; Visit Provider Family Medicine Geriatric Medicine
DX: E11.65 Type 2 diabetes mellitus with hyperglycemia (principal); E78.5 Hyperlipidemia, unspecified; I10 Essential (primary) hypertension; N39.0 Urinary tract infection, site not specified
CPT/HCPCS: 36415; 80053; 80061; 81001; 83036; 84443; 85025; 87086; 87088; 87186

== ENCOUNTER 2024-05-26 12:00 | Outpatient (RCR) | payer MEDICARE, MEDICAID, SELFPAY ==
[2024-05-18 07:15] VITALS: BMI 31.2
[2024-05-19 11:17] LABS: International Normalized Ratio 2.1; Prothrombin Time (Protime)PT. 23.5 SECONDS (11.7-14.9)
[2024-05-26 12:43] LABS: International Normalized Ratio 2.1
== END 2024-05-26 18:00 | disposition home or self-care (01) ==
LOC: LAB 12:00
PROVIDERS: PCP Family Medicine Geriatric Medicine; Referring Provider Family Medicine Geriatric Medicine; Visit Provider Family Medicine Geriatric Medicine
DX: R06.02 Shortness of breath (principal)
CPT/HCPCS: 36415; 85610

== ENCOUNTER 2024-05-29 08:18 | Day surgery (SDC) | payer MEDICARE, MEDICAID, SELFPAY ==
[2024-05-18 07:15] VITALS: BMI 31.2
--- NOTE | 2024-05-29 08:50 | RAD_ITS ---
PROCEDURE: Cervical epidural block. DATE OF EXAMINATION: May 29, 2024. INDICATION: Female, 53 years old. Chronic neck pain. FLUOROSCOPY TIME (if supplied): (5 seconds) minutes/seconds. 1.68 mGy. One fluoroscopic image was submitted. RAD/Fluoro Guided Needle Placement IMPRESSION: Fluoroscopic imaging provided for cervical epidural block. Electronically Signed: Jonathan Garcia MD at 11:54 EDT ,
[2024-05-29 08:56] VITALS: BP 110/61; PULSE 63; RESP 16; TEMP 36.8; O2SAT 99; BMI 29.0
[2024-05-29 09:24] LABS: Bedside Glucose 134 mg/dL (74-106)
[2024-05-29 09:31] LABS: INR Fingerstick 1.3; Prothrombin Time Fingerstick 14.5 SEC (11.7-14.9)
[2024-05-29] MEDS: MethylPREDNISolone Acetate 80 MG/ML Vial (09:46)
--- NOTE | 2024-05-29 09:49 | OP.PCM_ITS ---
Report of Operation Date of Procedure: 05/29/24 Description of Surgical Findings:: PREOPERATIVE DIAGNOSES: Cervical radiculopathy, cervical degenerative disc disease POSTOPERATIVE DIAGNOSES: Cervical radiculopathy, cervical degenerative disc disease PROCEDURE PERFORMED: Cervical epidural steroid injection, interlaminar at C7- [id number] fluoroscopic guidance. ANESTHESIA: Local. BLOOD LOSS: Minimal. COMPLICATIONS: None. DESCRIPTION OF PROCEDURE: History and physical of today was reviewed. Risks and benefits of the procedure were explained. The patient understood and agreed to proceed. Informed consent was obtained. IV inserted per routine protocol. The patient was taken to the operating room and placed in the prone position with a pillow positioned underneath the chest. The neck area was prepped and draped in a sterile fashion using iodine x3. Under fluoroscopy guidance on an AP view, the C7-T1 interlaminar space was identified. The skin and subcutaneous tissue was anesthetized with approximately 3 mL of 1% lidocaine using a 25-gauge regular needle. Under direct visualization on fluoroscopy, on AP view, using a 20-gauge 2-1/2-inch Tuohy needle, the needle was advanced via the skin. The tip of the needle was maneuvered and directed towards the interlaminar space at C7- T1. Loss of resistance technique was carried to air. Loss of resistance technique was encountered. Once encountered, after negative aspiration for blood and CSF, a total of 1 mL of contrast was injected to confirm correct placement of the needle as well as cephalocaudal spread of the contrast. Confirmation was obtained on AP as well as lateral view. After repeated negative aspiration and confirmation, a total of 3 mL of preservative-free normal saline and 80 mg of Depo-Medrol was injected easily. The needle was then removed intact. The patient experienced no sign or symptoms of intrathecal or intravascular injection. The patient experienced no paresthesia. The procedure was completed without any apparent difficulty or any complications. The patient appeared to tolerate it well. ASSESSMENT AND PLAN: This is a 53-year-old female with cervical radiculopathy, cervical degenerative disc disease status post cervical epidural steroid injection interlaminar at C7- T1 under fluoroscopic guidance, patient will continue her current medications, patient will follow up in approximately 2 weeks for reevaluation
[2024-05-29 10:02] VITALS: BP 110/61; BP 93/49; PULSE 84; RESP 16; TEMP 36.1; O2SAT 94
[2024-05-29 10:03] VITALS: BP 109/77; BP 114/77; BP 118/80; O2SAT 99
== END 2024-05-29 10:20 | disposition home or self-care (01) ==
LOC: SDC 08:19 → AC 08:23
PROVIDERS: PCP Family Medicine Geriatric Medicine; Visit Provider Anesthesiology Pain Medicine
PROC: 3E0S3BZ Introduction of Anesthetic Agent into Epidural Space, Percutaneous Approach (ICD-10-PCS; CPT 62320; principal; 2024-05-29 09:45)
DX: M50.123 Cervical disc disorder at C6-C7 level with radiculopathy (principal); Z79.899 Other long term (current) drug therapy; Z79.01 Long term (current) use of anticoagulants
CPT/HCPCS: 62321; 36416; 64490; 77002; 82962; 85610

== ENCOUNTER → 2024-05-29 | Outpatient (CLI) | payer MEDICARE, MEDICAID, SELFPAY ==
[2024-05-18 07:15] VITALS: BMI 31.2
--- NOTE | 2024-05-29 11:24 | CT_ITS ---
STUDY: CT FACIAL BONES WITHOUT CONTRAST REASON FOR EXAM: Female, 53 years old. CHRONIC SINUSITIS W POLYPOSIS RADIATION DOSAGE (If Supplied By Facility): CTDIvol = ( 33.06 ) mGy, DLP = ( 862.77 ) mGycm TECHNIQUE: The patient was scanned in a multi detector CT scanner. Sagittal and coronal images were reconstructed. Individualized dose optimization techniques were used for this CT. COMPARISON: None. FINDINGS: Normal soft tissue structures. Normal orbital del toro and orbital contents. Normal nasal bones and anterior nasal spine. Normal facial bones. There is no demonstrated fracture. Opacification of the right maxillary sinus as well as the right ethmoid and right sphenoid sinus. There is bony septation destruction of the right ethmoid sinus. Soft tissue prominence within the right nasal fossa. Findings in keeping with polyposis and right-sided frontal, ethmoid, maxillary and sphenoid sinusitis. Prior resection of the medial wall of the left maxillary sinus. CT/Sinus/Facial Bone IMPRESSION: Findings suggestive of a nasal polyposis with opacification of the right frontal, ethmoid, maxillary and sphenoid sinusitis. Electronically Signed: Jonathan Garcia MD at 14:40 EDT ,
== END | disposition home or self-care (01) ==
LOC: CT 11:21
PROVIDERS: PCP Family Medicine Geriatric Medicine; Visit Provider Otolaryngology
DX: J32.9 Chronic sinusitis, unspecified (principal); J33.8 Other polyp of sinus
CPT/HCPCS: 70486

== ENCOUNTER 2024-06-12 10:15 | Outpatient (RCR) | payer MEDICARE, MEDICAID, SELFPAY ==
[2024-05-18 07:15] VITALS: BMI 31.2
[2024-05-31 12:09] LABS: INR Fingerstick 1.3; Prothrombin Time Fingerstick 14.3 SEC (11.7-14.9)
[2024-06-02 12:06] LABS: INR Fingerstick 1.7; Prothrombin Time Fingerstick 18.2 SEC (11.7-14.9)
[2024-06-05 10:35] LABS: INR Fingerstick 1.6; Prothrombin Time Fingerstick 17.2 SEC (11.7-14.9)
[2024-06-12 10:41] LABS: INR Fingerstick 2.5; Prothrombin Time Fingerstick 25.6 SEC (11.7-14.9)
== END 2024-06-12 18:00 | disposition home or self-care (01) ==
LOC: LAB 10:15
PROVIDERS: PCP Family Medicine Geriatric Medicine; Referring Provider Family Medicine Geriatric Medicine; Visit Provider Family Medicine Geriatric Medicine
DX: R06.02 Shortness of breath (principal)
CPT/HCPCS: 36416; 85610

== ENCOUNTER 2024-06-12 11:30 | Outpatient (RCR) | payer MEDICARE, MEDICAID, SELFPAY ==
[2024-05-14 00:43] VITALS: BP 106/54; BP 122/76
--- NOTE | 2024-05-18 07:06 | PCM.CR.ITP ---
Exercise - Initial Assessment Physician Prescribed Exercise Modalities: SciFit Stepper Nutrition - Initial Assessment Weight Mgt (Other Care) Height: 5 ft 4 in Weight:: 182 lb BMI: 31.2 Psychosocial - Initial Assess Target Goals Target Goals Patient Health Questionnaire PHQ-9 Screening 90-Day Re-eval Assessment: 1. Little interest or pleasure in doing things: More than half the days 2. Feeling down, depressed, or hopeless: More than half the days 3. Trouble falling or staying asleep, or sleeping too much: Nearly every day 4. Feeling tired or having little energy: Nearly every day 5. Poor appetite or overeating: Nearly every day 6. Feeling bad about yourself -- or that you are a failure or have let yourself or your family down: Several days 7. Trouble concentrating on things, such as reading the newspaper or watching television: More than half the days 8. Moving or speaking so slowly that other people could have noticed. Or the opposite - being so fidgety or restless that you have been moving around a lot more than usual: Several days 9. Thoughts that you would be better off , or of hurting yourself in some way: Not at all How difficult have these problems made it for you to do your work, take care of things at home, or get along with other people?: Somewhat difficult Total Score: 17 Self-Efficacy 6-Item Scale 90-Day Re-eval Assessment: We would like to know how confident you are in doing certain activities. Please select your confidence level for: Fatigue Select Number: 2 Physical Discomfort or Pain Select Number: 3 Emotional Distress Select Number: 8 Other Symptoms or Health Problems Select Number: 2 Different Tasks and Activities Select Number: 7 Medication Select Number: 4 Total Score:: 4 Nutrition Survey Nutrition Survey Instructions Scoring Instructions Exercise - 30-day Assessment Physician Prescribed Exercise Modalities: SciFit Stepper Exercise - 60-day Assessment Physician Prescribed Exercise Modalities: SciFit Stepper Exercise - 90-day Assessment Visit Date of Eval: 05/18/24 Session #:: 30 Physician Prescribed Exercise Modalities: SciFit Stepper Frequency: 3x/week for 12 weeks [36 sessions] Intensity: 60-80% of age predicted maximum heart rate reserve Duration: 30 - 45 minutes Current METSs:: 6.8 Target Heart Rate:: 101-127 Current RPE:: 9-11 Maximum Excercise HR:: 91 Resting Blood Pressure: 114/68 Maximum Exercise Blood Pressure: 114/68 EKG Type: NSR w/BBB with freq pac's, rare pvc. Freq atrial bigeminy. Outcomes & Goals Goals:: Verbalizes understanding of THR, RPE & goal METS by session 6, Documents in home exercise log/reports 30 min aerobic 5 day/wk by DC, Demonstrates accurate pulse taking by DC and Other additional outcome/goals: see below Intervention & Plan Exercise Program Goals: Instruct on personal THR & RPE, Instruct on MET level & personal MET goal, Show patient to take own pulse /validate performance until accurate, Instruct on home exercise and Other additional plan/int 30-day Reassessments 30 day Reassessments:: Met Physical Activity Home Exercise Physical Activity - Home Exercise: Safe Exercise, Warm-up, Self-monitoring, Cool-Down, Home Exercise > 30 min Daily and Sitting Time <3 hours/daily Outcomes & Goals Outcomes/Goals: Demonstrates correct Warm-up/exercise Cool-Down (S3) if = 2.5 METs, Verbalizes symptoms of exercise intolerance by Session 3 (S3), Demonstrate safe equipment use (S3) & follows exercise prescrition (6) and Other: See below Intervention & Plan Plan/Intervention: Instruct warm-up & cool-down if exercising at > 2 METs, Instruct on symptoms of exercise intolerance & actions to take, Instruct & monitor on saf, Assess intial functional capacity & safety risk and Other See below 30-day Reassessments 30 day Reassessments:: Met Exercise - Final/Discharge Physician Prescribed Exercise Modalities: SciFit Stepper Nutrition - 30-Day Assessment Weight Mgt (Other Care) Height: 5 ft 4 in Weight:: 182 lb BMI: 31.2 Nutrition - 60-Day Assessment Weight Mgt (Other Care) Height: 5 ft 4 in Weight:: 182 lb BMI: 31.2 Core - 90 Day Assessment Visit Date of Eval: 05/18/24 Session #:: 30 Medication Compliance Preventative Medication(s):: Beta pippa and Warfarin/Coumadin H/O mental health issues: depression, anxiety, or addiction?: Yes Doesn?t believe in the benefits of treatment?: No Believes medications are unnecessary or harmful?: No Has a concern about medication side effects?: No Expresses concern over the cost of medications?: No Outcomes/Goals: Verbalizes medications,desired effect & common side effects @ DC, Pt self-reports following medication regimen, Keeps card in wallet w/medications listed by DC and Other additional outcome/goals: Interventions/plans: Instruct on medication effects & side effects, Review medication list w/patient every two weeks, Instruct importance of taking meds as ordered & assist problem solving and Other additional 30-day Reassessments:: Progressing Reassessment Notes & Comments:: Bumex increased to 3 mg Tobacco Use Tobacco Use: Non-smoker 30-day Reassessments:: Met Hypertension Hypertension Diagnosis:: Hypertension ICD-10 I10 Resting Blood Pressure:: 114/68 [place] [employer] Hypertension Guidelines Peak Exercise Blood Pressure:: 114/68 Outcomes/Goals: Able to verbalize/achieve optimal blood pressure <130/80, Incorporates diet changes & exercise for blood pressure control by DC and Other additional outcomes/goals Interventions/plan: Instruct on optimal blood pressure, hypertension & medications, Instruct on effects of sodium, alcohol, stress, exercise &hypertension and Other additional plan/interventions 30 day Reassessments:: Met Tobacco Cessation Referral Smoking Cessation Referral:: No Individual Education/Counseling:: No Education Schedule Given:: Yes Psychosocial - 30-Day Assess Target Goals Target Goals Psychosocial - 60-Day Assess Target Goals Target Goals Psychosocial - 90-Day Assess VIsit Date of Eval: 05/18/24 Session #:: 30 History of previous Mental disease:: Yes History of Emotional Disorders: Anxious and Depression (pt is on meds) Target Goals Target Goals Outcomes/Goals: See list Psychosocial Outcomes/Goals:: ID's personal stressors & 2 strategies to manage stress by discharge and Other Additional outcome/goals: Intervention/Plan: See List Interventions/Plan:: Assess stressors,coping strategies & signs of derpression on admission, Instruct/assist pt to develop coping & personal stress Mgt strategies, Refer to Behavioral Health if appropriate, Refer to Physician if appropriate, Instruct patient to recognize signs & symptoms of depression, Instruct patient to recog and Other additional plan/intervention 30-day Reassessments: 30 day Reassessments:: Met Psychosocial - Final Assessmen Target Goals Target Goals Nutrition - 90-Day Assessment Program Goals Nutrition Program Goals Patient has diagnosis of Hyperlipidemia (ICD E78)?: No Visit Date of Eval: 05/18/24 Session #:: 30 Cholesterol/Lipids (Other Core Measures) Determine presence & major risk factors that modify LDL goal: Hypertension or hypertensive medication, Low HDL cholesterol <40 mg/dL*, Family history of premature CHD in Male < 55 years: female <65 yearsFa and Age men > 45 years; women >/= 55 years Outcomes/Goals: Pt IDs own risk factors & lifestyle modifications by Session 10, Verbalizes symptoms of angina & response by session 3., Pt independently manages and Other Additional Outcomes/Goals: Intervention/Plan: Advocate for lipid panel cholesterol medication if applicable, Instruct on personal lipid levels & lipid goals/NCEP guidelines, Instruct on cholesterol and Other additional plan/int Referral to dietitian:: Yes 30-day Reassessments:: Met Diabetes (Other Core Measures) Diabetes Type: Diagnosis Type II ICD-10 E11 Insulin dependent injection/pump?: Yes Non-Insulin Dependent?: Yes Do you monitor your blood sugar at home?: Yes Referral to Diabetic Clinic:: Yes Outcomes/Goals:: Able to state symptoms of, Able to state, Able to state and Other additional Intervention/Plan:: Instruct on, Refer to, Instruct on and Other 30-day Reassessments:: Met Weight Mgt (Other Care) Height: 5 ft 4 in Weight:: 182 lb BMI: 31.2 Diagnosis Overweight/Obesity BMI> 30% ICD-10 E66: Yes Diagnosis High BMI/Morbid Obesity BMI> 35% ICD-10 Z68: No Outcomes/Goals: Pt sets, maintains & shows weight loss goal & trend during rehab and Other additional outcomes/goals Intervention/Plan: Instruct on ideal BMI & set weight loss goal w/patient, Assist pt to ID & incorporate diet changes for weight loss by S9, Refer to Structured Weight Loss program as appropriate, Encourage goal of using 250-300dcal per session for weight loss and Other additional plan/interventions 30 day Reassessments:: Progressing Reassessment Notes & Comments:: Martha is being referred to a CHF specialist due to continuous weight gain. Pt had paracentesis 05/11 and approx 800 ml of fluid removed. Healthy Eating Habits Will attend diet classes:: Yes Outcomes/Goals:: Consume diet rich in vegs,fruits,whole grain/high fiber,fish,lean meat, Limit sat/trans fats,cholesterol & added salts & sugars and Other additional outcome/goals: Intervention/Plan:: Assess current eating habits and Other Additional plan/interventions 30-day Reassessments:: Met Education Gave educational materials for:: Signs & symptoms of hypoglycemia, Signs & symptoms of hyperglycemia, Relate diabetes to coronary artery disease and Healthy eating Nutrition - Final Assessment Weight Mgt (Other Care) Height: 5 ft 4 in Weight:: 182 lb BMI: 31.2
[2024-05-18 07:15] VITALS: BP 114/68; BMI 31.2
[2024-05-18 07:20] VITALS: BP 114/68
== END 2024-06-12 23:59 ==
LOC: CR 11:30
PROVIDERS: PCP Family Medicine Geriatric Medicine
DX: I07.1 Rheumatic tricuspid insufficiency (principal); Z95.4 Presence of other heart-valve replacement
CPT/HCPCS: 93798

== ENCOUNTER 2024-06-14 07:33 | Outpatient (RCR) | payer MEDICARE, MEDICAID, SELFPAY ==
[2024-06-13 00:42] VITALS: BP 106/54; BP 114/68; BP 122/76; BMI 30.9
== END 2024-07-13 23:59 ==
LOC: CR 07:33
PROVIDERS: PCP Family Medicine Geriatric Medicine
DX: I07.1 Rheumatic tricuspid insufficiency (principal); Z95.4 Presence of other heart-valve replacement
CPT/HCPCS: 93798

== ENCOUNTER → 2024-06-15 | Outpatient (CLI) | payer MEDICARE, MEDICAID, SELFPAY ==
[2024-06-13 00:42] VITALS: BMI 30.9
--- NOTE | 2024-06-15 14:05 | US_ITS ---
STUDY: ABDOMINAL ULTRASOUND -4 quadrant ultrasound REASON FOR VISIT: Female, 53 years old ASCITES survey TECHNIQUE: Ultrasound evaluation of the 4 quadrants was performed with real-time and static batista-scale imaging. TECHNICAL QUALITY: Adequate. COMPARISON: None. FINDINGS: Ascites survey was obtained. All 4 quadrants were evaluated. Not enough fluid for safe paracentesis. US/Abdomen Limited IMPRESSION: Not enough fluid for safe paracentesis. Electronically Signed: Jonathan Garcia MD at 15:01 EDT ,
== END | disposition home or self-care (01) ==
LOC: US 14:05
PROVIDERS: PCP Family Medicine Geriatric Medicine; Referring Provider Family Medicine Geriatric Medicine; Visit Provider Family Medicine Geriatric Medicine
DX: R18.8 Other ascites (principal)
CPT/HCPCS: 76705

== ENCOUNTER 2024-07-05 10:50 | Outpatient (RCR) | payer MEDICARE, MEDICAID, SELFPAY ==
[2024-06-21 09:46] VITALS: BMI 31.2
[2024-07-05 11:07] LABS: INR Fingerstick 2.5; Prothrombin Time Fingerstick 25.4 SEC (11.7-14.9)
== END 2024-07-05 18:00 | disposition home or self-care (01) ==
LOC: MTLAB 10:50
PROVIDERS: PCP Family Medicine Geriatric Medicine; Referring Provider Family Medicine Geriatric Medicine; Visit Provider Family Medicine Geriatric Medicine
DX: R06.02 Shortness of breath (principal)
CPT/HCPCS: 36416; 85610

== ENCOUNTER 2024-08-01 09:55 | Emergency (ER) | payer MEDICARE, MEDICAID, SELFPAY ==
[2024-07-19 10:16] VITALS: BMI 31.2
[2024-08-01 10:06] VITALS: BP 119/81; PULSE 79; RESP 20; TEMP 36.4; O2SAT 96; BMI 40.9
--- NOTE | 2024-08-01 10:11 | EKG12_ITS ---
Test Reason : Blood Pressure : */* mmHG Vent. Rate : 81 BPM Atrial Rate : 81 BPM P-R Int : 172 ms QRS Dur : 140 ms QT Int : 350 ms P-R-T Axes : 48 -12 -9 degrees QTcB Int : 406 ms Critical Test Result: STEMI AGE AND GENDER SPECIFIC ECG ANALYSIS Sinus rhythm with Premature atrial complexes Right bundle branch block ST elevation consider lateral injury or acute infarct Confirmed by KERON WYMAN MD ([id number]), brands editor LUISA PRESTON ([id number]) on 08/02/2024 8:13:48 AM Also confirmed by KERON WYMAN MD ([id number]), brands editor LUISA PRESTON ([id number]) on 08/02/2024 8:14:29 AM Referred By: Confirmed By: KERON WYMAN MD
--- NOTE | 2024-08-01 10:16 | EDS_ITS ---
HPI History of Present Illness Chief Complaint: Palpitations Detail of Chief Complaint: Irregular heartbeat Informant: patient Onset/Context/Timing Onset: - (Unknown) Context: - (Unknown) Timing: - (Unable to determine) Quality: Irregular heartbeat during paracentesis Location: Cardiovascular Current Severity: Unable to determine since patient declines any cardiorespiratory symptoms Maximum Severity: Unknown Worsened by: Unknown Relieved by: Not applicable Associated Symptoms Associated Symptoms: None Narrative Narrative: Patient is a 53-year-old woman with a BMI of 40.9. She has history of obstructive sleep apnea and compliant with BiPAP mask. She also has hypersomnolence syndrome. She denies headache, visual, ocular auditory symptoms. She denies rhinorrhea, congestion, postnasal drainage or sore throat. She denies any auditory symptoms. She denies neck pain or neck stiffness. She denies shortness of breath, [place] exertion, PND or orthopnea. She denies chest discomfort. She was unaware that she had irregular heartbeat. Abdomen is prominent there is no obvious fluid wave. She did have a paracentesis. Currently there is only 800 cc of fluid. She denies dysuria, frequency, urgency or hematuria. She denies problems with coordination or balance. She denies paresthesia, anesthesia or motor weakness. Prior similar symptoms: No Recent Illness/Hospitalization: No PFSH PFSH Medical History Incisional hernia CKD (chronic kidney disease) stage 4, GFR 15-29 ml/min Wears glasses Wears dentures Post-menopausal Insulin dependent diabetes mellitus Uses wheelchair Walker as ambulation aid Ambulates with cane Lupus Fatty liver Gastric reflux Non-smoker CPAP (continuous positive airway pressure) dependence Shortness of breath on exertion History of echocardiogram History of stress test Cardiology follow-up encounter Obstructive sleep apnea CHF with right heart failure Diastolic CHF, chronic Right ventricular dilation Essential hypertension Osteopenia Vitamin D deficiency 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) Hypophosphatemia Hip pain Prolonged QT interval Chronic diarrhea Nonrheumatic mitral (valve) insufficiency Secondary pulmonary arterial hypertension Non-rheumatic tricuspid valve insufficiency Degenerative disc disease, cervical Cervical spondylosis Narcolepsy Lupus nephritis SLE (systemic lupus erythematosus) Home Medications ?Medication ?Instructions ?Recorded ?Last Taken ?Type prednisone 5 mg tablet 5 mg PO DAILY steroid for lupus 07/08/20 05/28/24 History levocetirizine 5 mg tablet 5 mg PO DAILY ALLERGIES 07/17/20 10/31/23 History blood sugar diagnostic #10 ea 11/04/20 Unknown History lancets 33 gauge #100 ea 11/04/20 Unknown History pregabalin 150 mg capsule 150 mg PO BID neuropathy 03/31/21 05/28/24 History OneTouch Verio test strips (blood #360 ea 04/17/21 Unknown Rx sugar diagnostic) hydroxychloroquine 200 mg tablet 200 mg PO DAILY antimalarial 07/08/21 05/28/24 History oxycodone 5 mg tablet 5 mg PO DAILY PRN PRN Pain 08/26/21 11/01/23 History acetaminophen 500 mg tablet 500 mg PO Q6H PRN pain/fever 11/25/21 Unknown Hi story ketoconazole 2 % shampoo 1 applic topical DAILY hair loss 01/04/22 10/31/23 History desvenlafaxine succinate 100 mg 100 mg PO DAILY ANTIDEPRESSANT 02/19/22 05/28/24 History tablet,extended release 24 hr Dexcom G6 General Merchandise Manager (blood-glucose #1 ea 03/04/22 Unknown Rx meter,continuous) cevimeline 30 mg capsule (Evoxac) 1 cap PO TID dry mouth 05/05/22 10/31/23 History BD Ultra-Fine Mini Pen Needle 31 #100 ea 06/30/22 Unknown Rx gauge x 3/16 (pen needle, diabetic) mycophenolate mofetil 250 mg 500 mg PO BID anti rejection 03/04/23 05/28/24 History capsule (CellCept) cyclosporine 25 mg capsule 75 mg PO BID autoimmune suppresant 03/05/23 05/28/24 History lancets 33 gauge (OneTouch Delica 03/05/23 Unknown History Lancets) mirtazapine 15 mg tablet 30 mg PO QHS sleep 03/05/23 10/31/23 History Lactobacillus acidophilus 10 mg PO DAILY probiotic 04/01/23 10/31/23 History (Acidophilus capsule) clindamycin 1.2 % (1 % 1 applic topical DAILY acne 04/01/23 10/31/23 History base)-benzoyl peroxide 5 % topical gel betamethasone, augmented 0.05 % 1 applic topical Q12H PRN excema 06/09/23 10/31/23 History topical cream diclofenac sodium 1 % topical gel 2 g topical ONCE PRN pain 06/09/23 10/31/23 History (Voltaren Arthritis Pain) dapagliflozin propanediol 5 mg 5 mg PO DAILY #90 tabs 12/27/23 05/28/24 Rx tablet (Farxiga) alpha lipoic acid 600 mg capsule 600 mg PO DAILY neuropathy 02/17/24 Unknown History bumetanide 1 mg tablet 1 mg PO DAILY fluid retention 02/17/24 05/28/24 History carvedilol 6.25 mg tablet 6.25 mg PO BID 02/17/24 05/28/24 History fluticasone propionate 50 1 spray intranasal DAILY 02/17/24 Unknown History mcg/actuation nasal spray,suspension (Flonase Allergy Relief) warfarin 3 mg tablet See Rx Instructions PO .COMPLEX 02/17/24 05/25/24 History solriamfetol 75 mg tablet (Sunosi) 75 mg PO DAILY 03/09/24 05/28/24 History insulin pump cart,automated,BT #45 ea 04/07/24 Unknown Rx (Omnipod 5 G6 Pods (Gen 5) subcutaneous cartridge) bumetanide 2 mg tablet 2 mg PO .qam 05/29/24 05/28/24 History loperamide 2 mg capsule (Imodium 2 mg PO Q6H PRN diarrhea 05/29/24 05/29/24 History A-D) Humalog U-100 Insulin 100 unit/mL 100 unit subcut DAILY diabetes #90 06/07/24 Unknown Rx subcutaneous solution (insulin mL lispro) empagliflozin 10 mg tablet 10 mg PO QDAY 06/21/24 Unknown History (Jardiance) Dexcom G6 Sensor (blood-glucose #3 ea 06/28/24 Unknown Rx sensor) Dexcom G6 Transmitter #1 ea 06/28/24 Unknown Rx (blood-glucose transmitter) Allergy/AdvReac Type Severity Reaction Status Date / Time LONG Inhibitors Allergy Angioedema Verified 08/01/24 10:14 adhesive Allergy Rash Verified 08/01/24 10:14 lisinopril Allergy Angioedema Verified 08/01/24 10:14 Sulfa (Sulfonamide Allergy Rash Verified 08/01/24 10:14 Antibiotics) sulfamethoxazole (From Allergy Rash Verified 08/01/24 10:14 Bactrim) trimethoprim (From Bactrim) Allergy Rash Verified 08/01/24 10:14 tuberculin, purified protein Allergy Unknown Verified 08/01/24 10:14 deriva Family History Mother Hypertension Kidney disease ALS (amyotrophic lateral sclerosis) Father Heart disease Hypertension Kidney disease Diabetes Brother Melanoma Surgical History Tricuspid valve replaced Transplant recipient History of dilation and curettage History of biopsy History of right hip replacement Hx of right heart catheterization Kidney transplant recipient Hip replacement planned History of left heart catheterization (03/08/20) revision of right hip arthroplasty (05/10/19) port removed Status post carpal tunnel release Status post total hip replacement, bilateral S/P lymph node biopsy S/P colonoscopy History of esophagogastroduodenoscopy (EGD) S/P nasal polypectomy Social History household members: family housing: house Smoking Status: Never smoker alcohol intake: never substance use type: does not use caffeine: No what type of physical activity do you participate in: other details: PT seatbelt use: always do you feel safe at home: Yes additional social history: Single ROS ROS ED Constitutional Constitutional ED: Denies chills, fever(s) or subjective Eyes Eyes: Denies blurry vision or change in vision ENT ENT ED: Denies ear pain, rhinorrhea or sore throat Cardiovascular Cardiovascular: Denies chest pain, palpitations or racing heartbeat Respiratory/Chest Respiratory/Chest: Denies cough, dyspnea or dyspnea on exertion Gastrointestinal Gastrointestinal: Denies abdominal pain, diarrhea, nausea, vomiting or other Genitourinary Genitourinary ED: Denies dysuria, hematuria or urinary frequency Musculoskeletal Musculoskeletal: Denies arthralgias, back pain or myalgias Psychiatric Psychiatric: Denies anxiety or depression Endocrine Endocrinology: Denies cold intolerance or heat intolerance Hematologic/Lymphatic Hematologic/Lymphatic: Reports systems reviewed and no addt'l complaints, except as documented EXAM Physical Exam Const Vital Signs: 08/01/24 10:06 08/01/24 10:13 08/01/24 12:00 Temperature 97.5 F L Temperature Source Oral Pulse Rate 79 79 Respiratory Rate 20 H 17 Respiratory Effort Normal Non-Labored Respiratory Pattern Normal Blood Pressure 119/81 H 107/84 H Blood Pressure Mean 93 91 Pulse Ox 96 94 Oxygen Delivery Method Room Air Room Air [facility] Lab Data Attestation: I reviewed the patient's lab results. Lab results narrative: CBC is unremarkable. Basic metabolic panel reveals mild hypokalemia. BUN and creatinine are elevated 29 and 2.11. Estimated GFR is 26. Glucose is elevated 134 with a normal CO2 anion gap. Labs: Laboratory Results - last 24 hr 08/01/24 08/01/24 08/01/24 10:12 12:01 12:17 WBC 6.3 RBC 4.30 Hgb 13.2 Hct 42.1 MCV 97.9 MCH 30.7 MCHC 31.4 L RDW Std Deviation 62.4 H RDW Coeff of Jah 17.9 H Plt Count 148 L MPV 11.0 Immature Gran % (Auto) 0.500 Neut % (Auto) 65.0 Lymph % (Auto) 13.7 L [place] % (Auto) 17.3 H Eos % (Auto) 2.9 Baso % (Auto) 0.6 Absolute Neuts (auto) 4.1 Absolute Lymphs (auto) 0.86 Nucleated RBC % 0 Sodium 142 Potassium 3.4 L Chloride 107 Carbon Dioxide 30.0 Anion Gap 5 BUN 29 H Creatinine 2.11 H Estim Creat Clear Calc 37.89 Est GFR (MDRD) Af Amer 32 L Est GFR (MDRD) Non-Af 26 L BUN/Creatinine Ratio 13.7 Glucose 134 H Calcium 9.5 Troponin I High Sens 59 H 61 H POC Glucose 99 Second troponin is 61 with a delta of 70. These are both elevated. Prior troponins were all elevated in the 6070 range. Since she has chronic elevated troponins and no cardiac symptoms other than irregular heartbeat she will be discharged to home ABG Data ABG results: ABG 08/01/24 10:45 Specimen Type YONATHAN Sample Site Not entered VBG pH 7.40 VBG pO2 58 H VBG HCO3 28 H VBG Total CO2 29 VBG O2 Sat (Calc) 90 H VBG Base Excess 3 POC Mix VBG pCO2 Pt Tmp 45.0 O2 Delivery Device Not entered Rhythm Strip Rhythm Strip: Sinus Rhythm (Wide-complex with premature atrial beats) Rate: 77 EKG Initial EKG: Attestation: I personally reviewed and interpreted this EKG as follows: Interpretation: Sinus Rhythm (Patient with a sinus rhythm with premature atrial beats. Rate is 81. TN intervals 172 ms [place] duration 140 ms. QT duration 3 and 50 ms. [employer] is normal computer is reading ST elevation [place]. There is abnormality of the ST segment in the lateral leads. Review of EKG dated April 24, 2024 is ess) Prior: Unchanged (April 24, 2024. Agree the EKG is not normal. Troponin was added with a 2-hour troponin. There is also evidence of right bundle branch block which was noted on the EKG performed April 24, 2024.) Discharge Plan Triage Chief Complaint: Palpitations ED Provider: Andrea Rey Dx/Rx/DC Orders Clinical Impression: APC (atrial premature contractions), Elevated troponin level, CKD stage G5/A1, GFR <15 and albumin creatinine ratio <30 mg/g, SLE (systemic lupus erythematosus), Hypokalemia Instructions: ED About Arrhythmias Prescriptions: No Action (DME) blood sugar diagnostic Strip See Rx Instructions .ROUTE .MEDSUPPLY Qty: 10 Patient Comments: use 1 TEST STRIP to TEST BLOOD SUGAR daily Rx Instructions: As directed (DME) lancets 33 gauge misc See Rx Instructions .ROUTE .MEDSUPPLY Qty: 100 Patient Comments: use 1 LANCET to TEST BLOOD SUGAR daily Rx Instructions: As directed pregabalin 150 mg capsule 150 mg PO BID oxycodone 5 mg tablet 5 mg PO DAILY PRN PRN (Reason: Pain) acetaminophen 500 mg tablet 500 mg PO Q6H PRN (Reason: pain/fever) mirtazapine 15 mg tablet 30 mg PO QHS desvenlafaxine succinate 100 mg tablet extended release 24 hr 100 mg PO DAILY cevimeline [Evoxac] 30 mg capsule 1 cap PO TID mycophenolate mofetil [CellCept] 250 mg capsule 500 mg PO BID Acidophilus Capsule 10 mg PO DAILY clindamycin-benzoyl peroxide 1.2 %(1 % base) -5 % gel 1 applic topical DAILY bumetanide 1 mg tablet 1 mg PO DAILY Rx Instructions: Take 1 extra if a 3+ weight gain in a 24hr period (DME) lancets [OneTouch Delica Lancets] 33 gauge misc See Rx Instructions .ROUTE .MEDSUPPLY Rx Instructions: 4x/day betamethasone, augmented 0.05 % cream 1 applic topical Q12H PRN (Reason: excema) Patient Comments: TAKING NEEDED diclofenac sodium [Voltaren Arthritis Pain] 1 % gel 2 g topical ONCE PRN (Reason: pain) Rx Instructions: apply to single elbow, wrist or hand; for hand includes palm/fingers/back of hand carvedilol 6.25 mg tablet 6.25 mg PO BID warfarin 3 mg tablet See Rx Instructions PO .COMPLEX Rx Instructions: TUES, THURS, SAT 4.5mg and 3mg other days fluticasone propionate [Flonase Allergy Relief] 50 mcg/actuation spray,suspension 1 spray intranasal DAILY Rx Instructions: administer into each nostril Sunosi 75 mg tablet 75 mg PO DAILY Jardiance 10 mg tablet 10 mg PO QDAY hydroxychloroquine 200 mg tablet 200 mg PO DAILY Patient Comments: lupus prednisone 5 mg tablet 5 mg PO DAILY levocetirizine 5 MG tablet 5 mg PO DAILY ketoconazole 2 % Shampoo 1 applic TOPICAL DAILY cyclosporine 25 mg capsule 75 mg PO BID alpha lipoic acid 600 mg capsule 600 mg PO DAILY bumetanide 2 mg tablet 2 mg PO .qam loperamide [Imodium A-D] 2 mg capsule 2 mg PO Q6H PRN (Reason: diarrhea) (DME) OneTouch Verio test strips Strip See Rx Instructions .ROUTE .MEDSUPPLY Qty: 360 3RF Rx Instructions: As directed up to 4x daily to monitor glucose levels ([facility]) Dexcom G6 General Merchandise Manager Misc See Rx Instructions .Route Qty: 1 0RF Rx Instructions: As directed ([facility]) pen needle, diabetic [BD Ultra-Fine Mini Pen Needle] 31 gauge x 3/16 needle See Rx Instructions .ROUTE .MEDSUPPLY Qty: 100 3RF Rx Instructions: 3x/day Farxiga 5 mg tablet 5 mg PO DAILY Qty: 90 1RF (DME) Omnipod 5 G6 Pods (Gen 5) Cartridge See Rx Instructions .Route Qty: 45 1RF Rx Instructions: 1 pod q 48 hours insulin lispro [Humalog U-100 Insulin] 100 unit/mL solution 100 unit subcut DAILY Qty: 90 1RF Patient Comments: 3 unit basal rate, bolus with meals based on carb intake Rx Instructions: via pump (DME) Dexcom G6 Sensor Device See Rx Instructions .Route Qty: 3 3RF Rx Instructions: 1 sensor q 10 days (DME) Dexcom G6 Transmitter Device See Rx Instructions .Route Qty: 1 1RF Rx Instructions: 1 q 90 days Primary Care Provider: Mitchell Bowen Chi Referrals: Mitchell Bowen Chi, MD [Primary Care Provider] - As Needed Print Language: Somali Disposition Disposition: Home, Self Care
--- NOTE | 2024-08-01 10:18 | EKG12_ITS ---
Test Reason : PALP Blood Pressure : */* mmHG Vent. Rate : 82 BPM Atrial Rate : 92 BPM P-R Int : 168 ms QRS Dur : 140 ms QT Int : 412 ms P-R-T Axes : 65 -14 -14 degrees QTcB Int : 481 ms AGE AND GENDER SPECIFIC ECG ANALYSIS Sinus rhythm with Premature atrial complexes Right bundle branch block Confirmed by YANET AMAYA ([id number]), telegraph editor MARC RODRIGUEZ ([id number]) on 08/04/2024 1:46:53 PM Referred By: Mitchell Bowen Confirmed By: YANET AMAYA
[2024-08-01 10:22] LABS: Absolute Lymphocyte Count 0.86 X10^3/uL (0.83-4.51); Absolute Neutrophil Count 4.1 X10^3/uL (2.0-7.7); Basophil# 0.04 X10^3/uL; Basophil% 0.6 % (0-1); Eosinophil# 0.18 X10^3/uL; Eosinophils% 2.9 % (0-5); Hematocrit 42.1 % (37-47); Hemoglobin 13.2 g/dL (12.0-15.0); Lymphocyte # 0.86 X10^3/ul (0.83-4.51); Lymphocyte % 13.7 % (19-41); Mean Corp Hgb Conc 31.4 g/dL (32-36); Mean Corpuscular Hgb 30.7 pg (27.0-32.0); Mean Corpuscular Volume 97.9 fL (81-99); Monocyte# 1.08 X10^3/uL; Monocyte% 17.3 % (0-10); NRBC Flagged by Analyzer 0 % (0-5); Neutrophil # 4.07 X10^3/uL (2.7-7.7); Platelet Count 148 K/mm3 (150-450); RBC Distribution Width CV 17.9 % (11.6-14.6); RBC Distribution Width SD 62.4 fl (35.1-43.9); White Blood Count 6.3 K/mm3 (4.4-11.0)
[2024-08-01 10:41] LABS: Anion Gap 5 (5-15); BUN 29 mg/dL (7-18); BUN/Creat Ratio 13.7 RATIO (10-20); Calcium,Total 9.5 mg/dL (8.5-10.1); Chloride 107 mmol/L (98-107); Creatinine, Serum 2.11 mg/dL (0.55-1.02); EST Glomerular Filtration Rate 26 mL/min (>60); Est Glom Filt Rate - Afr Amer 32 mL/min (>60); Estimated Creatinine Clearance 37.89 ml/min; Glucose 134 mg/dL (74-106); Potassium 3.4 mmol/L (3.5-5.1); Sodium Level 142 mmol/L (136-145)
[2024-08-01 10:49] LABS: Blood Gas Specimen Type VEN; O2 Delivery Device Not entered; SITE Not entered; VBG BASE EXCESS 3 mmol/L (-1.0-3.5); VBG Bicarbonate 28 mmol/L (22-26); VBG PO2 58 mmHg (25-40); VBG SO2 90 % (50-70); VBG TCO2 29 mmol/L (23-33)
[2024-08-01 11:17] LABS: Troponin-I HS 59 pg/mL (3.0-54.0)
[2024-08-01 12:00] VITALS: BP 107/84; PULSE 79; RESP 17; O2SAT 94
[2024-08-01 12:21] LABS: Bedside Glucose 99 mg/dL (74-106)
[2024-08-01 12:47] LABS: Troponin-I HS 61 pg/mL (3.0-54.0)
[2024-08-01 14:00] VITALS: BP 120/80; PULSE 81; RESP 16; O2SAT 95
[2024-08-01 14:23] VITALS: BP 120/76; PULSE 79; RESP 16; O2SAT 95
== END 2024-08-01 14:28 | disposition home or self-care (01) ==
PROVIDERS: Emergency Provider Emergency Medicine; PCP Family Medicine Geriatric Medicine; Visit Provider Emergency Medicine
DX: I49.1 Atrial premature depolarization (principal); I13.2 Hypertensive heart and chronic kidney disease with heart failure and with stage 5 chronic kidney disease, or end stage renal disease; N18.5 Chronic kidney disease, stage 5; I50.32 Chronic diastolic (congestive) heart failure; M32.9 Systemic lupus erythematosus, unspecified; E11.22 Type 2 diabetes mellitus with diabetic chronic kidney disease; Z79.4 Long term (current) use of insulin; E87.6 Hypokalemia; R00.2 Palpitations; Z95.2 Presence of prosthetic heart valve
CPT/HCPCS: 80048; 82803; 82962; 84484; 85025; 93005; 99283; A4216

== ENCOUNTER → 2024-08-01 | Outpatient (CLI) | payer MEDICARE, MEDICAID, SELFPAY ==
[2024-07-19 10:16] VITALS: BMI 31.2
--- NOTE | 2024-08-01 08:29 | US_ITS ---
PROCEDURE: Ultrasound guided paracentesis. DATE OF EXAMINATION: August 01, 2024.. INDICATION: Female, 53 years old. Ascites. PHYSICIAN: Jonathan Garcia M.D. TECHNIQUE: The risks, benefits, and alternatives to the procedure were explained to the patient. The specific risks of bleeding, infection, and damage to bowel were detailed and accepted. Witnessed informed consent was obtained. The abdomen was ultrasonographically surveyed. An appropriate pocket of fluid was identified at the right lower quadrant. The skin were cleaned and prepped in the usual sterile fashion. Using ultrasound guidance, the peritoneal cavity was accessed with a 5-Nepali paracentesis needle/catheter system. The trocar was removed. A total of 7:15 ml of dark thu-colored fluid were removed from the peritoneal cavity. The catheter was removed and a sterile dressing was applied. The procedure was well tolerated. US/Paracentesis with US IMPRESSION: Ultrasound guided paracentesis. Electronically Signed: Jonathan Garcia MD at 9:58 EST ,
--- NOTE | 2024-08-01 08:30 | US_ITS ---
STUDY: ABDOMINAL ULTRASOUND - RIGHT UPPER QUADRANT REASON FOR VISIT: Female, 53 years old Chronic passive congestion of liver . Ascites. TECHNIQUE: Ultrasound evaluation of the right upper quadrant was performed with real-time and static batista-scale imaging. TECHNICAL QUALITY: Adequate. COMPARISON: Comparison is made with prior study June 15, 2024. FINDINGS: Liver: The liver measures 16.6 cm. There is increased echogenicity consistent with fatty infiltration. The bile ducts are within normal limits. There is hepatic color flow. The direction of portal flow is hepatopetal. There is no demonstrated mass lesion. Gallbladder: There is a contracted gallbladder. The gallbladder wall is thickened and measures 6 mm. There is a negative sonographic Gallegos''s sign. There is no pericholecystic fluid. There are no gallstones. Common Bile Duct (C.B.D.): The common bile duct measures 6 mm. Pancreas: Normal size of the head, body and tail of the pancreas. There is normal echogenicity of the pancreas. There is no demonstrated pancreatic mass or cyst. Right Kidney: Normal size of the right kidney. The right kidney measures 10 cm x 5 cm x 4.8 cm. There is thinning of the renal cortex. The right cortex measures 0.9 cm. Increased cortical echotexture suggestive of medical renal disease. There is no demonstrated renal mass or cyst. There is no right hydronephrosis. Ascites. US/Abdomen Limited IMPRESSION: Fatty infiltration of the liver. Contracted gallbladder with thickened wall. Thinning of the right renal cortex. The right renal cortex is of increased echotexture suggestive of a chronic medical disease. Ascites. Electronically Signed: Jonathan Garcia MD at 12:16 EST ,
[2024-08-01 09:18] VITALS: BP 112/74; PULSE 64; RESP 18; TEMP 36.3; O2SAT 93
[2024-08-01] MEDS: Lidocaine 2% (20 ml mdv) 20 ML Vial INFILT (09:25)
[2024-08-01 09:30] VITALS: BP 108/69; PULSE 80; RESP 18; O2SAT 96
[2024-08-01 09:35] VITALS: BP 116/70; PULSE 77; RESP 18; O2SAT 96
== END | disposition home or self-care (01) ==
LOC: US 08:28
PROVIDERS: PCP Family Medicine Geriatric Medicine; Referring Provider Family Medicine Geriatric Medicine; Visit Provider Family Medicine Geriatric Medicine
DX: K76.1 Chronic passive congestion of liver (principal); R18.8 Other ascites
CPT/HCPCS: 49083; 76705

== ENCOUNTER 2024-08-22 17:59 | Observation (INO) | payer MEDICARE, MEDICAID, SELFPAY ==
[2024-07-19 10:16] VITALS: BMI 31.2
[2024-08-22] VITALS (7 sets, daily range): BP systolic 133–157; BP diastolic 81–102; PULSE 68–79; RESP 18–19; TEMP 36.8–36.9; O2SAT 93–99; BMI 31.2; BMI 31.4
[2024-08-22 19:03] LABS: Red Blood Cells-Urine 0 SEEN /hpf (0-5)
[2024-08-22 19:07] LABS: Color, Urine Yellow (Yellow); Glucose, Dipstick 250 mg/dl (Normal); Ketone-Dipstick Negative (Negative); Leukocyte Esterase-Dipstick 100 /ul (Negative); Nitrite-Dipstick Negative (Negative); Occult Blood-Urine Negative /ul (Negative); Protein-Dipstick 30 mg/dl (Negative); Specific Gravity, Urine 1.015 (1.002-1.030); Urine Bilirubin Dipstick Negative (Negative); Urine Clarity Clear (Clear); Urine Urobilinogen Normal (Normal)
[2024-08-22 19:14] LABS: Squamous Epithelial Cells - UA 0-5 SEEN /hpf (5-10); White Blood Cells 10-25 SEEN /hpf (0-5)
[2024-08-22 19:15] LABS: Bacteria 2+ /hpf (None Seen); Internal QC Validated? YES +Cl - CLEAR BKGD; Mucous, Urine 1+ /hpf (<or=2+); Pregnancy, Urine Negative Negative
--- NOTE | 2024-08-22 19:19 | EDS_ITS ---
HPI History of Present Illness Chief Complaint: Complaint Detail of Chief Complaint: Urinary tract infection Informant: patient Narrative Narrative: Patient presents with concern over a urinary tract infection. 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 Patient has history of a renal transplant in 2019 at [facility]. Patient was asymptomatic at that time. Patient subsequently today developed symptoms of dysuria. She called the hospital and was told she had a culture that grew out antibiotic resistant bacteria and she needed IV antibiotics and to go to the emergency department. Patient is not sure what bacteria grew out or what it is resistant to or what it sensitive to. She was told that they would call ahead to the hospital to make us aware of what the culture results were. Patient denies fevers. She denies vomiting. She denies back pain. [facility] Medical History Incisional hernia CKD (chronic kidney disease) stage 4, GFR 15-29 ml/min Wears glasses Wears dentures Post-menopausal Insulin dependent diabetes mellitus Uses wheelchair Walker as ambulation aid Ambulates with cane Lupus Fatty liver Gastric reflux Non-smoker CPAP (continuous positive airway pressure) dependence Shortness of breath on exertion History of echocardiogram History of stress test Cardiology follow-up encounter Obstructive sleep apnea CHF with right heart failure Diastolic CHF, chronic Right ventricular dilation Essential hypertension Osteopenia Vitamin D deficiency 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) Hypophosphatemia Hip pain Prolonged QT interval Chronic diarrhea Nonrheumatic mitral (valve) insufficiency Secondary pulmonary arterial hypertension Non-rheumatic tricuspid valve insufficiency Degenerative disc disease, cervical Cervical spondylosis Narcolepsy Lupus nephritis SLE (systemic lupus erythematosus) Home Medications ?Medication ?Instructions ?Recorded ?Last Taken ?Type prednisone 5 mg tablet 5 mg PO DAILY steroid for lupus 07/08/20 05/28/24 History levocetirizine 5 mg tablet 5 mg PO DAILY ALLERGIES 07/17/20 10/31/23 History blood sugar diagnostic #10 ea 11/04/20 Unknown History lancets 33 gauge #100 ea 11/04/20 Unknown History pregabalin 150 mg capsule 150 mg PO BID neuropathy 03/31/21 05/28/24 History OneTouch Verio test strips (blood #360 ea 04/17/21 Unknown Rx sugar diagnostic) hydroxychloroquine 200 mg tablet 200 mg PO DAILY antimalarial 07/08/21 05/28/24 History acetaminophen 500 mg tablet 500 mg PO Q6H PRN pain/fever 11/25/21 Unknown History ketoconazole 2 % shampoo 1 applic topical DAILY hair loss 01/04/22 10/31/23 History desvenlafaxine succinate 100 mg 100 mg PO DAILY ANTIDEPRESSANT 02/19/22 05/28/24 History tablet,extended release 24 hr Dexcom G6 Rework Operator (blood-glucose #1 ea 03/04/22 Unknown Rx meter,continuous) cevimeline 30 mg capsule (Evoxac) 1 cap PO TID dry mouth 05/05/22 10/31/23 History BD Ultra-Fine Mini Pen Needle 31 #100 ea 06/30/22 Unknown Rx gauge x 3/16 (pen needle, diabetic) mycophenolate mofetil 250 mg 500 mg PO BID anti rejection 03/04/23 05/28/24 History capsule (CellCept) cyclosporine 25 mg capsule 75 mg PO BID autoimmune suppresant 03/05/23 05/28/24 History lancets 33 gauge (OneTouch Delica 03/05/23 Unknown History Lancets) mirtazapine 15 mg tablet 30 mg PO QHS sleep 03/05/23 10/31/23 History Lactobacillus acidophilus 10 mg PO DAILY probiotic 04/01/23 10/31/23 History (Acidophilus capsule) dapagliflozin propanediol 5 mg 5 mg PO DAILY #90 tabs 12/27/23 05/28/24 Rx tablet (Farxiga) alpha lipoic acid 600 mg capsule 600 mg PO DAILY neuropathy 02/17/24 Unknown History bumetanide 1 mg tablet 1 mg PO DAILY fluid retention 02/17/24 05/28/24 History carvedilol 6.25 mg tablet 6.25 mg PO BID 02/17/24 05/28/24 History fluticasone propionate 50 1 spray intranasal DAILY 02/17/24 Unknown History mcg/actuation nasal spray,suspension (Flonase Allergy Relief) warfarin 3 mg tablet See Rx Instructions PO .COMPLEX 02/17/24 05/25/24 History solriamfetol 75 mg tablet (Sunosi) 75 mg PO DAILY 03/09/24 05/28/24 History insulin pump cart,automated,BT #45 ea 04/07/24 Unknown Rx (Omnipod 5 G6 Pods (Gen 5) subcutaneous cartridge) bumetanide 2 mg tablet 2 mg PO .qam 05/29/24 05/28/24 History loperamide 2 mg capsule (Imodium 2 mg PO Q6H PRN diarrhea 05/29/24 05/29/24 History A-D) Humalog U-100 Insulin 100 unit/mL 100 unit subcut DAILY diabetes #90 06/07/24 Unknown Rx subcutaneous solution (insulin mL lispro) empagliflozin 10 mg tablet 10 mg PO QDAY 06/21/24 Unknown History (Jardiance) Dexcom G6 Sensor (blood-glucose #3 ea 06/28/24 Unknown Rx sensor) Dexcom G6 Transmitter #1 ea 06/28/24 Unknown Rx (blood-glucose transmitter) aspirin 81 mg tablet,delayed 81 mg PO DAILY 08/01/24 Unknown History release budesonide 1 mg/2 mL suspension mg 08/01/24 Unknown History for nebulization cyclosporine modified 25 mg capsule PO 08/01/24 Unknown History efinaconazole 10 % topical topical 08/01/24 Unknown History solution with applicator (Jublia) insulin pump cart,auto,BT,G6/7 08/01/24 Unknown History (Omnipod 5 G6-G7 Pods (Gen 5) subcutaneous cartridge) ketorolac 0.5 % eye drops 1 drp LEFT EYE 4X/DAY 08/01/24 Unknown History ofloxacin 0.3 % eye drops drp 08/01/24 Unknown History sodium, calcium, magnesium, PO 08/01/24 Unknown History potassium oxybates 0.5 gram/mL oral soln (Xywav) warfarin 1 mg tablet PO 08/01/24 Unknown History warfarin 4 mg tablet PO 08/01/24 Unknown History Allergy/AdvReac Type Severity Reaction Status Date / Time LONG Inhibitors Allergy Angioedema Verified 08/22/24 18:00 adhesive Allergy Rash Verified 08/22/24 18:00 lisinopril Allergy Angioedema Verified 08/22/24 18:00 Sulfa (Sulfonamide Allergy Rash Verified 08/22/24 18:00 Antibiotics) sulfamethoxazole (From Allergy Rash Verified 08/22/24 18:00 Bactrim) trimethoprim (From Bactrim) Allergy Rash Verified 08/22/24 18:00 tuberculin, purified protein Allergy Unknown Verified 08/22/24 18:00 deriva Family History Mother Hypertension Kidney disease ALS (amyotrophic lateral sclerosis) Father Heart disease Hypertension Kidney disease Diabetes Brother Melanoma Surgical History Tricuspid valve replaced Transplant recipient History of dilation and curettage History of biopsy History of right hip replacement Hx of right heart catheterization Kidney transplant recipient Hip replacement planned History of left heart catheterization (03/08/20) revision of right hip arthroplasty (05/10/19) port removed Status post carpal tunnel release Status post total hip replacement, bilateral S/P lymph node biopsy S/P colonoscopy History of esophagogastroduodenoscopy (EGD) S/P nasal polypectomy Social History household members: family housing: house Smoking Status: Never smoker alcohol intake: never substance use type: does not use caffeine: No what type of physical activity do you participate in: other details: PT seatbelt use: always do you feel safe at home: Yes additional social history: Single ROS ROS ED Review of Systems ROS Unobtainable: other Constitutional Constitutional ED: Reports lethargy; Denies chills, fever(s), sweats or weight loss Eyes Eyes: Denies blurry vision, change in vision or diplopia ENT ENT ED: Denies rhinorrhea or sore throat Cardiovascular Cardiovascular: Denies chest pain, orthopnea or racing heartbeat Respiratory/Chest Respiratory/Chest: Denies cough, dyspnea, dyspnea on exertion, orthopnea or sputum Gastrointestinal Gastrointestinal: Denies abdominal pain, diarrhea, nausea or vomiting Genitourinary Genitourinary ED: Reports dysuria; Denies hematuria or urinary frequency Musculoskeletal Musculoskeletal: Denies arthralgias, back pain, myalgias or neck pain Integumentary Denies abscess, Abrasions or rash Neurologic Neurologic: Denies headache(s) or weakness Psychiatric Psychiatric: Denies anxiety, depression or suicidal thoughts Endocrine Endocrinology: Denies polydipsia, polyphagia or polyuria Hematologic/Lymphatic Hematologic/Lymphatic: Denies easy bleeding, easy bruising or lymphadenopathy Allergic/Immunologic Allergic/Immunologic ED: Denies mouth swelling, tongue swelling or urticaria EXAM Physical Exam Const Vital Signs: 08/22/24 18:00 08/22/24 18:04 Temperature 98.2 F 98.2 F Temperature Source Oral Oral Pulse Rate 68 68 Respiratory Rate 18 18 Blood Pressure 157/102 H 157/102 H Blood Pressure Mean 120 120 Pulse Ox 95 95 Oxygen Delivery Method Room Air Room Air Positive well nourished and well developed General Appearance ED: well developed and NAD HEENT Reports TM's clear and moist mucous membranes normocephalic and atraumatic; Negative for trauma or tenderness Tympanic Membrane ED: Yes TM's clear Eyes PERRL and EOMs intact bilaterally General Eye ED: Negative for pale conjunctiva or scleral icterus Neck no lymphadenopathy, supple and no JVD General: Negative for tenderness Chest Wall inspection of chest normal and palpation of chest normal Chest: Negative for tenderness Resp normal respiratory effort and clear to auscultation bilaterally Effort and Inspection: Negative for respiratory distress or pain with movement Auscultation: Negative for rhonchi, wheezes or diminished lung sounds Cardio regular rate, regular rhythm, S1 normal heart sound, S2 normal heart sound and no murmurs Peripheral Pulses: pulses 2+ throughout GI normal to inspection, nondistended, normoactive bowel sounds, soft to palpation, non-tender, non-distended and no masses Back/Spine no CVA tenderness and no thoracic nor lumbar tenderness Extremity normal to inspection General Extremety ED: Negative for edema General Extremity: Negative for edema Neuro oriented x3, CN's II-XII intact bilaterally, no sensory deficits noted and gait normal Sensorium / Orientation: awake, alert, oriented to person, oriented to place and oriented to time Motor Exam: strength 5/5 throughout and strength abnormal Psych mental status grossly normal Skin no rashes or lesions noted and no wounds MDM MDM Lab Data Labs: Laboratory Results - last 24 hr 08/22/24 18:55 Urine Color Yellow Urine Clarity Clear Urine pH 6.0 Ur Specific [place] 1.015 Urine Protein 30 H Urine Glucose (UA) 250 H Urine Ketones Negative Urine Occult Blood Negative Urine Nitrite Negative Urine Bilirubin Negative Urine Urobilinogen Normal Ur Leukocyte Esterase 100 H Urine RBC 0 SEEN Urine WBC 10-25 SEEN Ur Squamous Epith Cells 0-5 SEEN Urine Bacteria 2+ Urine Mucus 1+ Urine Test Negative Discharge Plan Triage Chief Complaint: Complaint ED Provider: Aminata Bridges Dx/Rx/DC Orders Prescriptions: No Action (DME) blood sugar diagnostic Strip See Rx Instructions .ROUTE .MEDSUPPLY Qty: 10 Patient Comments: use 1 TEST STRIP to TEST BLOOD SUGAR daily Rx Instructions: As directed (DME) lancets 33 gauge misc See Rx Instructions .ROUTE .MEDSUPPLY Qty: 100 Patient Comments: use 1 LANCET to TEST BLOOD SUGAR daily Rx Instructions: As directed pregabalin 150 mg capsule 150 mg PO BID acetaminophen 500 mg tablet 500 mg PO Q6H PRN (Reason: pain/fever) mirtazapine 15 mg tablet 30 mg PO QHS desvenlafaxine succinate 100 mg tablet extended release 24 hr 100 mg PO DAILY cevimeline [Evoxac] 30 mg capsule 1 cap PO TID mycophenolate mofetil [CellCept] 250 mg capsule 500 mg PO BID Acidophilus Capsule 10 mg PO DAILY bumetanide 1 mg tablet 1 mg PO DAILY Rx Instructions: Take 1 extra if a 3+ weight gain in a 24hr period (DME) lancets [OneTouch Delica Lancets] 33 gauge misc See Rx Instructions .ROUTE .MEDSUPPLY Rx Instructions: 4x/day carvedilol 6.25 mg tablet 6.25 mg PO BID warfarin 3 mg tablet See Rx Instructions PO .COMPLEX Rx Instructions: TUES, THLEATHA, SAT 4.5mg and 3mg other days fluticasone propionate [Flonase Allergy Relief] 50 mcg/actuation spray,suspension 1 spray intranasal DAILY Rx Instructions: administer into each nostril Sunosi 75 mg tablet 75 mg PO DAILY Jardiance 10 mg tablet 10 mg PO QDAY hydroxychloroquine 200 mg tablet 200 mg PO DAILY Patient Comments: lupus prednisone 5 mg tablet 5 mg PO DAILY levocetirizine 5 MG tablet 5 mg PO DAILY ketoconazole 2 % Shampoo 1 applic TOPICAL DAILY cyclosporine 25 mg capsule 75 mg PO BID alpha lipoic acid 600 mg capsule 600 mg PO DAILY bumetanide 2 mg tablet 2 mg PO .qam loperamide [Imodium A-D] 2 mg capsule 2 mg PO Q6H PRN (Reason: diarrhea) ofloxacin 0.3 % drops Patient Comments: [NO ORIGINAL SIG] cyclosporine modified 25 mg capsule PO aspirin 81 mg tablet,delayed release (DR/EC) 81 mg PO DAILY warfarin 4 mg tablet PO ketorolac 0.5 % drops 1 drp LEFT EYE 4X/DAY warfarin 1 mg tablet PO budesonide 1 mg/2 mL suspension for nebulization Patient Comments: [NO ORIGINAL SIG] Jublia 10 % solution with applicator topical Xywav 0.5 gram/mL solution PO (DME) Omnipod 5 G6-G7 Pods (Gen 5) Cartridge subcut (DME) OneTouch Verio test strips Strip See Rx Instructions .ROUTE .MEDSUPPLY Qty: 360 3RF Rx Instructions: As directed up to 4x daily to monitor glucose levels (DME) Dexcom G6 Rework Operator Misc See Rx Instructions .Route Qty: 1 0RF Rx Instructions: As directed (DME) pen needle, diabetic [BD Ultra-Fine Mini Pen Needle] 31 gauge x 3/16 needle See Rx Instructions .ROUTE .MEDSUPPLY Qty: 100 3RF Rx Instructions: 3x/day Farxiga 5 mg tablet 5 mg PO DAILY Qty: 90 1RF (DME) Omnipod 5 G6 Pods (Gen 5) Cartridge See Rx Instructions .Route Qty: 45 1RF Rx Instructions: 1 pod q 48 hours insulin lispro [Humalog U-100 Insulin] 100 unit/mL solution 100 unit subcut DAILY Qty: 90 1RF Patient Comments: 3 unit basal rate, bolus with meals based on carb intake Rx Instructions: via pump (DME) Dexcom G6 Sensor Device See Rx Instructions .Route Qty: 3 3RF Rx Instructions: 1 sensor q 10 days (DME) Dexcom G6 Transmitter Device See Rx Instructions .Route Qty: 1 1RF Rx Instructions: 1 q 90 days Primary Care Provider: Mitchell Bowen Chi Referrals: Mitchell Bowen Chi, MD [Primary Care Provider] - Print Language: Russian
[2024-08-22 19:55] LABS: Absolute Lymphocyte Count 1.14 X10^3/uL (0.83-4.51); Absolute Neutrophil Count 4.5 X10^3/uL (2.0-7.7); Basophil# 0.04 X10^3/uL; Basophil% 0.6 % (0-1); Eosinophil# 0.09 X10^3/uL; Eosinophils% 1.3 % (0-5); Hematocrit 45.5 % (37-47); Hemoglobin 14.5 g/dL (12.0-15.0); Lymphocyte # 1.14 X10^3/ul (0.83-4.51); Mean Corp Hgb Conc 31.9 g/dL (32-36); Mean Corpuscular Hgb 30.9 pg (27.0-32.0); Mean Platelet Vol. 10.7 fl (6.2-12.0); Monocyte# 0.88 X10^3/uL; Monocyte% 13.1 % (0-10); NRBC Flagged by Analyzer 0 % (0-5); Neutrophil # 4.52 X10^3/uL (2.7-7.7); Neutrophil % 67.6 % (47-70); Platelet Count 151 K/mm3 (150-450); RBC Distribution Width CV 17.1 % (11.6-14.6); RBC Distribution Width SD 59.7 fl (35.1-43.9); Red Blood Count 4.69 M/mm3 (4.2-5.4); White Blood Count 6.7 K/mm3 (4.4-11.0)
[2024-08-22 20:03] LABS: Anion Gap 4 (5-15); BUN 28 mg/dL (7-18); BUN/Creat Ratio 16.2 RATIO (10-20); Calcium,Total 9.8 mg/dL (8.5-10.1); Chloride 106 mmol/L (98-107); Creatinine, Serum 1.73 mg/dL (0.55-1.02); EST Glomerular Filtration Rate 33 mL/min (>60); Est Glom Filt Rate - Afr Amer 40 mL/min (>60); Estimated Creatinine Clearance 39.56 ml/min; Glucose 106 mg/dL (74-106); Potassium 3.4 mmol/L (3.5-5.1); Sodium Level 139 mmol/L (136-145)
[2024-08-22 20:15] LABS: Lactic Acid 0.9 mmol/L (0.4-1.9)
--- NOTE | 2024-08-22 21:04 | PCM.HP.STD ---
HPI - General General Date of Admission: 08/22/24 Date of Service: 08/22/24 Chief Complaint: Dysuria, ? UTI per testing. 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 renal transplant 2019, recent diagnosis Left sided renal carcinoma with planned upcoming nephrectomy (kidney noted to be atrophic) who presents to the [facility] ED on 08/22/2024 with history of being concern for urinary tract infection with reportedly dropping off a urine sample at [facility] 5 days ago for routine testing prior to having a nephrectomy for carcinoma of the left kidney which is atrophic with previous history of renal transplant in 2019 reportedly asymptomatic at that time however she has onset now of dysuria prompting call to the hospital who noted that her culture grew out to antibiotic resistant bacteria with referral for IV antibiotic therapy and recommended emergency room evaluation unfortunately unaware of what type of bacteria or resistance/sensitivity patterns with no recent fevers or chills but given these concerns prompted referral to ED to be cautious. Workup in the ED included T98.2, heart rate 68, BP 157/102, respiratory rate 18, 95% on room air with most recent repeat vitals T98.4, heart rate 70, BP 149/90, respiratory rate 19, 98% on room air, CBC with WBC 6.7, hemoglobin 14.5, platelet 151 without marked shift, BMP with potassium 3.4, BUN/creatinine 28/1.73, GFR 33, lactic acid 0.9, urinalysis with specific gravity 1.015, protein 30, glucose 250, negative nitrite, leukocyte esterase 100 with urine WBCs 10-25 with 2+ urine bacteria, blood culture pending per ED. in the ED patient ministered IV vancomycin. Previous cultures noted 05/25/2024 with Morganella greater than 100,000 as well as 03/20/2024 Enterococcus and previous to this growth of Klebsiella 01/2024. [facility] Medical History (Updated 08/23/24 @ 03:35 by Tess Phillips) Chronic sinusitis Incisional hernia CKD (chronic kidney disease) stage 4, GFR 15-29 ml/min Wears glasses Wears dentures Post-menopausal Insulin dependent diabetes mellitus Uses wheelchair Walker as ambulation aid Ambulates with cane Lupus Fatty liver Gastric reflux Non-smoker CPAP (continuous positive airway pressure) dependence Shortness of breath on exertion History of echocardiogram History of stress test Cardiology follow-up encounter Obstructive sleep apnea CHF with right heart failure Diastolic CHF, chronic Right ventricular dilation Essential hypertension Osteopenia Vitamin D deficiency 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) Hypophosphatemia Hip pain Prolonged QT interval Chronic diarrhea Nonrheumatic mitral (valve) insufficiency Secondary pulmonary arterial hypertension Non-rheumatic tricuspid valve insufficiency Degenerative disc disease, cervical Cervical spondylosis Narcolepsy Lupus nephritis SLE (systemic lupus erythematosus) Home Medications ?Medication ?Instructions ?Recorded ?Last Taken ?Type prednisone 5 mg tablet 5 mg PO DAILY steroid for lupus 07/08/20 08/22/24 08:16 History levocetirizine 5 mg tablet 5 mg PO DAILY ALLERGIES 07/17/20 08/22/24 08:15 History blood sugar diagnostic #10 ea 11/04/20 Unknown History lancets 33 gauge #100 ea 11/04/20 Unknown History pregabalin 150 mg capsule 150 mg PO BID neuropathy 03/31/21 08/22/24 08:17 History OneTouch Verio test strips (blood #360 ea 04/17/21 Unknown Rx sugar diagnostic) hydroxychloroquine 200 mg tablet 200 mg PO DAILY antimalarial 07/08/21 08/22/24 08:13 History acetaminophen 500 mg tablet 500 mg PO Q6H PRN pain/fever 11/25/21 Unknown History ketoconazole 2 % shampoo 1 applic topical DAILY hair loss 01/04/22 10/31/23 History desvenlafaxine succinate 100 mg 100 mg PO DAILY ANTIDEPRESSANT 02/19/22 08/22/24 08:09 History tablet,extended release 24 hr Dexcom G6 Eyelet Riveter (blood-glucose #1 ea 03/04/22 Unknown Rx meter,continuous) cevimeline 30 mg capsule (Evoxac) 1 cap PO TID dry mouth 05/05/22 08/22/24 08:08 History BD Ultra-Fine Mini Pen Needle 31 #100 ea 06/30/22 Unknown Rx gauge x 3/16 (pen needle, diabetic) mycophenolate mofetil 250 mg 500 mg PO BID anti rejection 03/04/23 08/22/24 08:16 History capsule (CellCept) cyclosporine 25 mg capsule 75 mg PO BID autoimmune suppresant 03/05/23 08/22/24 08:08 History lancets 33 gauge (OneTouch Delica 03/05/23 Unknown History Lancets) mirtazapine 15 mg tablet 15 mg PO QHS sleep 03/05/23 08/21/24 20:15 History alpha lipoic acid 600 mg capsule 600 mg PO DAILY neuropathy 02/17/24 08/21/24 20:04 History bumetanide 1 mg tablet 1 mg PO .qd fluid retention 02/17/24 08/21/24 20:05 History carvedilol 6.25 mg tablet 6.25 mg PO BID heart function 02/17/24 08/22/24 08:07 History fluticasone propionate 50 1 spray intranasal DAILY PRN 02/17/24 Unknown History mcg/actuation nasal allergies spray,suspension (Flonase Allergy Relief) warfarin 3 mg tablet 3 mg PO .qd heart valve 02/17/24 05/25/24 History solriamfetol 75 mg tablet (Sunosi) 75 mg PO DAILY hypersomnia 03/09/24 08/22/24 08:19 History insulin pump cart,automated,BT #45 ea 04/07/24 Unknown Rx (Omnipod 5 G6 Pods (Gen 5) subcutaneous cartridge) bumetanide 2 mg tablet 2 mg PO .qam excess water 05/29/24 08/22/24 08:06 History loperamide 2 mg capsule (Imodium 2 mg PO Q6H PRN diarrhea 05/29/24 08/22/24 08:15 History A-D) Humalog U-100 Insulin 100 unit/mL 100 unit subcut DAILY diabetes #90 06/07/24 Unknown Rx subcutaneous solution (insulin mL lispro) empagliflozin 10 mg tablet 10 mg PO QDAY diabetes 06/21/24 08/22/24 08:11 History (Jardiance) Dexcom G6 Sensor (blood-glucose #3 ea 06/28/24 Unknown Rx sensor) Dexcom G6 Transmitter #1 ea 06/28/24 Unknown Rx (blood-glucose transmitter) aspirin 81 mg tablet,delayed 81 mg PO DAILY heart health 08/01/24 08/22/24 08:04 History release budesonide 1 mg/2 mL suspension 1 mg irrigation TID chronic 08/01/24 08/22/24 08:40 History for nebulization sinusitis cyclosporine modified 25 mg capsule PO antirejection 08/01/24 Unknown History efinaconazole 10 % topical 1 applic topical .qd PRN nail 08/01/24 Unknown History solution with applicator (Jublia) fungus insulin pump cart,auto,BT,G6/7 08/01/24 Unknown History (Omnipod 5 G6-G7 Pods (Gen 5) subcutaneous cartridge) ketorolac 0.5 % eye drops 1 drp LEFT EYE 4X/DAY allergies 08/01/24 08/22/24 12:00 History ofloxacin 0.3 % eye drops 1 drp ophthalmic (eye) 4X/DAY post 08/01/24 08/22/24 08:37 History cataract sx. sodium, calcium, magnesium, 3 g PO QHS hypersomnia 08/01/24 08/21/24 20:00 History potassium oxybates 0.5 gram/mL oral soln (Xywav) warfarin 1 mg tablet 4.5 mg PO .q T,TH,SAT heart valve 08/01/24 08/20/24 History warfarin 4 mg tablet PO heart valve 08/01/24 Unknown History diclofenac sodium 1 % topical gel 4.5 inch topical TID PRN JOINT PAIN 08/22/24 Unknown History ipratropium 20 mcg-albuterol 100 2 puff inhalation DAILY PRN 08/22/24 Unknown History mcg/actuation mist for inhalation wheezing (Combivent Respimat) nystatin 100,000 unit/mL oral 1 ml PO TIDCM thrush 08/22/24 Unknown History suspension oxycodone 5 mg tablet 5 mg PO TID PRN PRN pain 08/22/24 08/21/24 History sodium chloride 0.9 % irrigation 1 irrig irrigation TID chronic 08/22/24 08/22/24 08:35 History solution sinusitis Allergy/AdvReac Type Severity Reaction Status Date / Time LONG Inhibitors Allergy Angioedema Verified 08/22/24 18:00 adhesive Allergy Rash Verified 08/22/24 18:00 lisinopril Allergy Angioedema Verified 08/22/24 18:00 Sulfa (Sulfonamide Allergy Rash Verified 08/22/24 18:00 Antibiotics) sulfamethoxazole (From Allergy Rash Verified 08/22/24 18:00 Bactrim) trimethoprim (From Bactrim) Allergy Rash Verified 08/22/24 18:00 tuberculin, purified protein Allergy Unknown Verified 08/22/24 18:00 deriva Family History Mother Hypertension Kidney disease ALS (amyotrophic lateral sclerosis) Father Heart disease Hypertension Kidney disease Diabetes Brother Melanoma Surgical History Tricuspid valve replaced Transplant recipient History of dilation and curettage History of biopsy History of right hip replacement Hx of right heart catheterization Kidney transplant recipient Hip replacement planned History of left heart catheterization (03/08/20) revision of right hip arthroplasty (05/10/19) port removed Status post carpal tunnel release Status post total hip replacement, bilateral S/P lymph node biopsy S/P colonoscopy History of esophagogastroduodenoscopy (EGD) S/P nasal polypectomy Social History household members: family housing: house Smoking Status: Never smoker alcohol intake: never substance use type: does not use caffeine: No what type of physical activity do you participate in: other details: PT seatbelt use: always do you feel safe at home: Yes additional social history: Single ROS ROS Narrative Admission Review of Systems: CONSTITUTIONAL: No weight loss, fever, chills, + weakness or fatigue. HEENT: Eyes: No visual loss, blurred vision, double vision or yellow sclerae. Ears, Nose, Throat: No hearing loss, sneezing, congestion, runny nose or sore throat. SKIN: No rash or itching, lesions, wounds. CARDIOVASCULAR: No chest pain, chest pressure or chest discomfort, palpitations, edema, orthopnea, syncopal events. RESPIRATORY: No shortness of breath, cough or sputum, wheezing, hemoptysis. GASTROINTESTINAL: No anorexia, nausea, vomiting or diarrhea, abdominal pain, melena, BRBPR. GENITOURINARY: + Dysuria. No frequency, urgency or retention. NEUROLOGICAL: No headache, dizziness, syncope, paralysis, ataxia, numbness or tingling in the extremities, focal weakness, change in bowel or bladder control, seizure. MUSCULOSKELETAL: + muscle, back pain, joint pain or stiffness. HEMATOLOGIC: + Chronic anemia. LYMPHATICS: No enlarged nodes. No history of splenectomy. PSYCHIATRIC: + History of anxiety and depression. ENDOCRINOLOGIC: No reports of sweating, cold or heat intolerance. No polyuria or polydipsia. ALLERGIES: + History of angioedema, allergic rhinitis. Vital Signs Vital Signs Vital Signs: 08/22/24 18:00 08/22/24 18:04 08/22/24 19:04 Temperature 98.2 F 98.2 F 98.2 F Temperature Source Oral Oral Oral Pulse Rate 68 68 72 Respiratory Rate 18 18 18 Blood Pressure 157/102 H 157/102 H 141/91 H Blood Pressure Mean 120 120 107 Pulse Ox 95 95 98 Oxygen Delivery Method Room Air Room Air Room Air 08/22/24 19:52 Temperature 98.4 F Temperature Source Oral Pulse Rate 70 Respiratory Rate 19 H Blood Pressure 149/90 H Blood Pressure Mean 109 Pulse Ox 98 Oxygen Delivery Method Room Air Weight Weight: 182 lb 3.2 oz Body Mass Index (BMI) 31.2 Physical Exam Narrative Physical Examination: General: Awake, alert, oriented x 3 and cooperative, seated upright in the ED bed in no apparent distress, fatigued appearing. Skin: Normal color, normal turgor, no icterus, no cyanosis. HEENT: AT/NC, EOMI, PERRLA, moderately dry MM, no carotid bruits or JVD noted. Lungs: Mildly diminished, greater bases, appropriate effort, no rales, ronchi or wheezing. Heart: Regular rate and rhythm; no gallop, rub audible, status post TVR. Abdomen: Soft, obese, NTTP, mildly distended but no significant fluid wave or tension noted, distant normal BS, no appreciated HSM. Extremities: No cyanosis, no clubbing, no marked significant peripheral pitting edema. Neurological: Patient awake, alert, oriented as noted, cognitive function intact; pupils equally reactive to light and accommodation, cranial nerves grossly normal, moving all 4 extremities, no focal deficits, strength moderately globally decreased. Psychiatric: Affect appears fatigued, mildly flat, no acute evidence of depressive or anxiety feelings but does have underlying history. Results Lab / Micro Data 08/22/24 19:29 08/22/24 19:29 Labs: Laboratory Results - last 24 hr 08/22/24 18:55: Urine Color Yellow, Urine Clarity Clear, Urine pH 6.0, Ur Specific [place] 1.015, Urine Protein 30 H, Urine Glucose (UA) 250 H, Urine Ketones Negative, Urine Occult Blood Negative, Urine Nitrite Negative, Urine Bilirubin Negative, Urine Urobilinogen Normal, Ur Leukocyte Esterase 100 H, Urine RBC 0 SEEN, Urine WBC 10-25 SEEN, Ur Squamous Epith Cells 0-5 SEEN, Urine Bacteria 2+, Urine Mucus 1+, Urine Test Negative 08/22/24 19:29: WBC 6.7, RBC 4.69, Hgb 14.5, Hct 45.5, MCV 97.0, MCH 30.9, MCHC 31.9 L, RDW Std Deviation 59.7 H, RDW Coeff of Jah 17.1 H, Plt Count 151, MPV 10.7, Immature Gran % (Auto) 0.400, Neut % (Auto) 67.6, Lymph % (Auto) 17.0 L, [place] % (Auto) 13.1 H, Eos % (Auto) 1.3, Baso % (Auto) 0.6, Absolute Neuts (auto) 4.5, Absolute Lymphs (auto) 1.14, Nucleated RBC % 0, Sodium 139, Potassium 3.4 L, Chloride 106, Carbon Dioxide 30.0, Anion Gap 4 L, BUN 28 H, Creatinine 1.73 H, Estim Creat Clear Calc 39.56, Est GFR (MDRD) Af Amer 40 L, Est GFR (MDRD) Non-Af 33 L, BUN/Creatinine Ratio 16.2, Glucose 106, Lactic Acid 0.9, Calcium 9.8 Assessment & Plan Assessment/Plan (1) Urinary tract infection: PLAN: Plan The patient is a 54 y/o F w/ PMHx: Narcolepsy, Obesity, IDDM, Lupus, HTN, HLD, GERD, BRENDAN on CPAP, HFpEF, Valvular Heart Disease s/p TVR, Chronic anemia/Fe deficiency anemia, 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 renal transplant 2019, recent diagnosis Left sided renal carcinoma with planned upcoming nephrectomy (kidney noted to be atrophic) who presents to the [facility] ED on 08/22/2024 with history of being concern for urinary tract infection with reportedly dropping off a urine sample at [facility] 5 days ago for routine testing prior to having a nephrectomy for carcinoma of the left kidney which is atrophic with previous history of renal transplant in 2019 reportedly asymptomatic at that time however she has onset now of dysuria prompting call to the hospital who noted that her culture grew out to antibiotic resistant bacteria with referral for IV antibiotic therapy and recommended emergency room evaluation unfortunately unaware of what type of bacteria or resistance/sensitivity patterns with no recent fevers or chills but given these concerns prompted referral to ED to be cautious. #1. Acute Enterococcal Complicated Urinary Tract Infection susceptible only to IV antibiotic therapies: Will admit to , recent culture performed at with onset of symptoms specifically dysuria with notable urine culture sensitive to IV vancomycin and Macrobid but unfortunately given her transplant status Macrobid is not an option, will judiciously administer IVFs, monitor I/Os, continue IV vancomycin, infectious disease consulted. Bld cx x 2 obtained in the ED. Case management consulted. Given this current status may need to consider PICC placement but unfortunately given patient history is not ideal. #2. Chronic Kidney Disease Stage IV with Hx ESRD secondary to Lupus Nephritis s/p Renal transplant: Patient with previously noted CKD stage IIIb/Mely status post previous donor kidney transplant with baseline creatinine primarily 1.8-2.2, following with [facility] given transplant status, previously had seen Dr. Arline Ambriz but most recently inpatient consultation has been by Dr. Taylor, given #1 acute infectious presentation will temporarily hold patient home CellCept, continue low-dose prednisone, may consider nephrology involvement if becomes necessary. #3. HFpEF: Most recent echocardiogram with LVEF 60%, status post TV replacement with prosthetic valve, only noted mild TV insufficiency, hydrating given acute infection as noted but only judiciously, we will continue patient aspirin, per current list does not appear to be on statin therapy, continue Coreg as well as Bumex diuretic regimen. Patient has required intermittent serial paracentesis previously thus we will closely monitor and if necessary may need to consider paracentesis as she does note feeling full. Judiciously hydrating as noted. #4. Left sided renal carcinoma: Patient with planned upcoming nephrectomy (kidney noted to be atrophic), had actually been dropping off a routine urine as part of preoperative assessment for upcoming surgery when she had onset of dysuria and urine culture had significant growth as noted above, will encourage continued follow-up with her transplant team as well as her surgeon given #1. #5. Chronic anemia/iron deficiency anemia/history of polycythemia: Admission hemoglobin 14.5, MCV 97, following with hematology Dr. Marte, last visit noted 05/25/2024, previously been receiving Procrit and iron transfusions, following transplant patient with onset of significant polycythemia requiring phlebotomy weekly with last noted 07/01/2021 with hemoglobin normalization following, since then has been started on oral iron supplementation twice weekly, encouraged continued follow-up with hematology as previously arranged. #6. Hypertension: Continue home regimen including Coreg, Bumex, PRN hydralazine. #7. Hyperlipidemia: Not on regimen per current list, no allergy noted, defer to outpatient. #8. Diabetes mellitus type II with chronic polyneuropathy: Noted previous history of insulin-dependent diabetes, not currently on any regimen, will maintain on ADA diet, accu checks w/ ISS. Most recent endocrinology visit noted 02/17/2024 with a hemoglobin A1c most closely to that visit 01/13/2024 5.9% with patient during that visit reportedly using Omnipod 5 insulin pump with Dexcom G6 CGM which patient reports she continues to use, will continue to monitor blood sugars with machine if at least the first 3 are consistent and use her insulin sliding scale via machine. #9. Lupus: Given acute infectious presentation will temporally hold hydroxychloroquine, add back once clinically improving. #10. Anxiety and depression: We will continue patient home venlafaxine and mirtazapine home regimen. #11. Allergic rhinitis: Will continue home fluticasone and Claritin regimen. #12. Obesity: Weight loss and lifestyle changes encouraged. #13. GERD: Per current list does not appear to be on regimen, will have as needed Mylanta for dyspepsia. #14. Valvular heart disease: Most recent echocardiogram noted 05/23/2024 with moderate concentric LVH, normal LV size, LV EF 60%, stage II diastolic dysfunction, normal prosthetic tricuspid valve, mild tricuspid valve insufficiency. Patient notes she is on coumadin for her valve, but unclear type, INR being requested, will continue to trend. #15. BRENDAN: CPAP nightly. #16. DVT prophylaxis: Continue Coumadin with INR trending. #17. CODE status: Patient ASHWIN is her sister/brother and living will is currently in place. Discussed CODE status at length including difference between FULL code, DNR-CCA and DNR-CC status. Following discussions about the differences in these status, requested Full Code status. Advanced Care Planning Face to Face Time: 16 minutes. Charges/Coding Visit Charges Inpatient E&M: 92293 Init Hosp L3 Procedures Hospitalists Procedures: 85192 Advncd Care Plan 30 Min
[2024-08-22] MEDS: Vancomycin HCl 1,250 MG in 0.9% Normal Saline (250mL Bag) 250 ML 167 MG IV (21:07)
[2024-08-22 23:13] LABS: Magnesium 2.2 mg/dL (1.6-2.6)
[2024-08-22 23:26] LABS: International Normalized Ratio 1.9; Prothrombin Time (Protime)PT. 21.3 SECONDS (11.7-14.9)
[2024-08-23] MEDS: Potassium Chloride Oral Tablet 20 MEQ 40 MEQ PO
[2024-08-23] MEDS: 0.9% Normal Saline (1000mL) 1,000 ML 100 ML IV (01:17)
--- NOTE | 2024-08-23 03:06 | PCM.RX.CS ---
Consult Antibiotic Management Pharmacy has been consulted to manage selected antibiotic: Vancomycin Type of Intervention Type of Consult: New start Labs Labs: Sodium 139 mmol/L (136-145) 08/22/24 19:29 Potassium 3.4 mmol/L (3.5-5.1) L 08/22/24 19:29 Chloride 106 mmol/L (98-107) 08/22/24 19:29 Carbon Dioxide 30.0 mmol/L (21.0-32.0) 08/22/24 19:29 Anion Gap 4 (5-15) L 08/22/24 19:29 BUN 28 mg/dL (7-18) H 08/22/24 19:29 Creatinine 1.73 mg/dL (0.55-1.02) H 08/22/24 19:29 Est GFR (MDRD) Af Amer 40 mL/min (>60) L 08/22/24 19:29 Est GFR (MDRD) Non-Af 33 mL/min (>60) L 08/22/24 19:29 BUN/Creatinine Ratio 16.2 RATIO (10-20) 08/22/24 19:29 Glucose 106 mg/dL (74-106) 08/22/24 19:29 Dosing Weight Weight used for dosin.9 kg Estimated Creatinine Clearance Estimated Creatinine Clearance: 40 Goal Trough Goal Trough: 15-20 mcg/mL Pharmacy Plan for Drug Dosing Pharmacy Plan for Drug Dosing: Pharmacy Service will continue to monitor and adjust dosing as required. Follow-Up Labs Follow-Up Labs: Trough: Vancomycin Date/Time Labs Ordered Labs to be done on [date and time ordered]: 08/24/24 @0830
[2024-08-23 03:15] VITALS: BMI 31.4
[2024-08-23] MEDS: Carvedilol 6.25 MG Tablet PO (04:04)
[2024-08-23 04:30] VITALS: BP 136/90; PULSE 65; RESP 16; TEMP 35.9; O2SAT 100
[2024-08-23 06:36] LABS: Absolute Lymphocyte Count 0.96 X10^3/uL (0.83-4.51); Absolute Neutrophil Count 4.5 X10^3/uL (2.0-7.7); Basophil# 0.05 X10^3/uL; Basophil% 0.8 % (0-1); Eosinophil# 0.15 X10^3/uL; Eosinophils% 2.3 % (0-5); Hematocrit 40.9 % (37-47); Lymphocyte # 0.96 X10^3/ul (0.83-4.51); Lymphocyte % 14.6 % (19-41); Mean Corp Hgb Conc 31.8 g/dL (32-36); Mean Corpuscular Volume 97.6 fL (81-99); Mean Platelet Vol. 10.7 fl (6.2-12.0); Monocyte# 0.91 X10^3/uL; Monocyte% 13.8 % (0-10); NRBC Flagged by Analyzer 0 % (0-5); Neutrophil # 4.46 X10^3/uL (2.7-7.7); Neutrophil % 67.6 % (47-70); Platelet Count 141 K/mm3 (150-450); RBC Distribution Width CV 17.1 % (11.6-14.6); Red Blood Count 4.19 M/mm3 (4.2-5.4); White Blood Count 6.6 K/mm3 (4.4-11.0)
[2024-08-23 06:47] LABS: Prothrombin Time (Protime)PT. 22.3 SECONDS (11.7-14.9)
[2024-08-23 07:09] LABS: Bedside Glucose 119 mg/dL (74-106)
[2024-08-23 07:32] LABS: ALB/GLOB Ratio 0.7 RATIO (0.9-2.4); AST(SGOT) 43 U/L (15-37); Alanine Aminotransfer ALT/SGPT 23 U/L (13-56); Albumin, Serum 2.7 g/dL (3.2-5.0); Alkaline Phosphatase 132 U/L (45-117); Anion Gap 6 (5-15); BUN 23 mg/dL (7-18); BUN/Creat Ratio 14.2 RATIO (10-20); Calcium,Total 9.1 mg/dL (8.5-10.1); Chloride 109 mmol/L (98-107); Creatinine, Serum 1.62 mg/dL (0.55-1.02); EST Glomerular Filtration Rate 36 mL/min (>60); Est Glom Filt Rate - Afr Amer 43 mL/min (>60); Estimated Creatinine Clearance 42.31 ml/min; Globulin 3.7 g/dL (2.2-4.2); Glucose 143 mg/dL (74-106); Potassium 3.7 mmol/L (3.5-5.1); Protein, Total 6.4 g/dL (6.4-8.2); Sodium Level 139 mmol/L (136-145)
[2024-08-23] MEDS: predniSONE 5 MG Tablet PO (07:55)
[2024-08-23] MEDS: Acetaminophen 325 MG Tablet 650 MG PO (07:55)
[2024-08-23] MEDS: Aspirin E.C. 81 MG Tablet PO (07:55)
[2024-08-23] MEDS: NYSTATIN 500,000 UNIT/5 ML UDC 500000 UNIT PO ×2 (07:56→14:02)
[2024-08-23 08:17] VITALS: O2SAT 97
[2024-08-23 08:55] VITALS: BP 119/76; PULSE 64; RESP 17; TEMP 36.6; O2SAT 98
[2024-08-23] MEDS: Vancomycin IV 500 MG/100 ML BAG 100 MG IV (08:56)
[2024-08-23] MEDS: Fluticasone 0.05% 1 SPRAY NASAL.SRY NASAL (09:01)
[2024-08-23] MEDS: Lactobacillis Acidophilus 1 CAP PO (09:02)
[2024-08-23] MEDS: Pregabalin 75 MG Capsule 150 MG PO (09:02)
[2024-08-23] MEDS: Venlafaxine XR 75 MG Capsule PO (09:02)
[2024-08-23] MEDS: Loratadine 10 MG Tablet PO (09:02)
[2024-08-23] MEDS: Bumetanide 2 MG Tablet PO (09:02)
--- NOTE | 2024-08-23 09:35 | PN.HOSP_ITS ---
Reason for Visit Reason for Visit: Diagnoses Chronic sinusitis, unspecified (08/22/24) Urinary tract infection, site not specified (08/22/24) Objective Data Objective Data Vital Signs: Vital Signs Temp Pulse Resp BP Pulse Ox O2 Del Method 97.8 F 64 17 119/76 98 Room Air 08/23/24 08:55 08/23/24 08:55 08/23/24 08:55 08/23/24 08:55 08/23/24 08:55 08/23/24 09:06 Oxygen Delivery Method Room Air Weight: 82.9 kg Body Mass Index (BMI) 31.4 Intake & Output: Intake and Output for Last 24 Hours 08/21/24 08/22/24 08/23/24 23:59 23:59 23:59 Intake Total 275 / 575 1465 / 1465 Balance 275 / 575 1465 / 1465 Lab / Micro Data 08/23/24 06:17 08/23/24 06:17 Labs: Laboratory Results - last 24 hr 08/22/24 18:55: Urine Color Yellow, Urine Clarity Clear, Urine pH 6.0, Ur Specific [place] 1.015, Urine Protein 30 H, Urine Glucose (UA) 250 H, Urine Ketones Negative, Urine Occult Blood Negative, Urine Nitrite Negative, Urine Bilirubin Negative, Urine Urobilinogen Normal, Ur Leukocyte Esterase 100 H, Urine RBC 0 SEEN, Urine WBC 10-25 SEEN, Ur Squamous Epith Cells 0-5 SEEN, Urine Bacteria 2+, Urine Mucus 1+, Urine Test Negative 08/22/24 19:27: Magnesium 2.2 08/22/24 19:29: WBC 6.7, RBC 4.69, Hgb 14.5, Hct 45.5, MCV 97.0, MCH 30.9, MCHC 31.9 L, RDW Std Deviation 59.7 H, RDW Coeff of Jah 17.1 H, Plt Count 151, MPV 10.7, Immature Gran % (Auto) 0.400, Neut % (Auto) 67.6, Lymph % (Auto) 17.0 L, M beto % (Auto) 13.1 H, Eos % (Auto) 1.3, Baso % (Auto) 0.6, Absolute Neuts (auto) 4.5, Absolute Lymphs (auto) 1.14, Nucleated RBC % 0, Sodium 139, Potassium 3.4 L , Chloride 106, Carbon Dioxide 30.0, Anion Gap 4 L, BUN 28 H, Creatinine 1.73 H, Estim Creat Clear Calc 39.56, Est GFR (MDRD) Af Amer 40 L, Est GFR (MDRD) Non-Af 33 L, BUN/Creatinine Ratio 16.2, Glucose 106, Lactic Acid 0.9, Calcium 9.8 08/22/24 23:10: PT 21.3 H, INR 1.9 08/23/24 06:17: WBC 6.6, RBC 4.19 L, Hgb 13.0, Hct 40.9, MCV 97.6, MCH 31.0, M CHC 31.8 L, RDW Std Deviation 61.0 H, RDW Coeff of Jah 17.1 H, Plt Count 141 L, MPV 10.7, Immature Gran % (Auto) 0.900, Neut % (Auto) 67.6, Lymph % (Auto) 14.6 L, [place] % (Auto) 13.8 H, Eos % (Auto) 2.3, Baso % (Auto) 0.8, Absolute Neuts (auto) 4.5, Absolute Lymphs (auto) 0.96, Nucleated RBC % 0, PT 22.3 H, INR 2.0, Sodium 139, Potassium 3.7, Chloride 109 H, Carbon Dioxide 24.0, Anion Gap 6, BUN 23 H, Creatinine 1.62 H, Estim Creat Clear Calc 42.31, Est GFR (MDRD) Af Amer 43 L, Est GFR (MDRD) Non-Af 36 L, BUN/Creatinine Ratio 14.2, Glucose 143 H, Calcium 9.1, Total Bilirubin 1.20 H, AST 43 H, ALT 23, Alkaline Phosphatase 132 H, Total Protein 6.4, Albumin 2.7 L, Globulin 3.7, Albumin/Globulin Ratio 0.7 L 08/23/24 06:38: POC Glucose 119 H
--- NOTE | 2024-08-23 10:14 | CASEMGMT ---
SW met with patient introduced self and role at [facility]. Patient triggered for SDOH regarding transportation. Patient said sometimes it is a struggle when she has less notice to set something up. Patient is aware of [facility] van, [employer], and [employer] transport. Patient utilizes all three programs already. Unfortunately there aren't any other resources SW can provide patient. Patient thanked SW for checking in with her. Should SW think of something else that may assist patient with transportation SW will let patient know. Keren Ramírez [employer]
--- NOTE | 2024-08-23 11:11 | CON.PCM.RE_ITS ---
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 Status post donor kidney transplantation with chronic allograft dysfunction. Chronic kidney disease stage G3b. Allograft function is stable. Patient does not appear to be toxic. She is hemodynamically stable. Therefore, I would keep the patient on her usual antirejection medications. UTI. Patient UTI with Enterococcus faecium. She is currently on IV vancomycin. She will be seen by ID for further evaluation/treatment options. Nephrology plan is discussed with Dr. Kamilla Ambriz. 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 The patient presented to hospital on 08/22/2024 with dysuria since 08/21/2024. Urine culture from 08/18/2024 showed Enterococcus faecium sensitive only to nitrofurantoin and vancomycin. The patient denies current chest pain, shortness of breath, nausea, or diarrhea. The patient developed dysuria on 08/21/2024. She was actually asymptomatic when urine culture was obtained. There is no fever, chill, or rigors. She does complain of being cold more easily. [facility] Medical History Chronic sinusitis Incisional hernia CKD (chronic kidney disease) stage 4, GFR 15-29 ml/min Wears glasses Wears dentures Post-menopausal Insulin dependent diabetes mellitus Uses wheelchair Walker as ambulation aid Ambulates with cane Lupus Fatty liver Gastric reflux Non-smoker CPAP (continuous positive airway pressure) dependence Shortness of breath on exertion History of echocardiogram History of stress test Cardiology follow-up encounter Obstructive sleep apnea CHF with right heart failure Diastolic CHF, chronic Right ventricular dilation Essential hypertension Osteopenia Vitamin D deficiency 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) Hypophosphatemia Hip pain Prolonged QT interval Chronic diarrhea Nonrheumatic mitral (valve) insufficiency Secondary pulmonary arterial hypertension Non-rheumatic tricuspid valve insufficiency Degenerative disc disease, cervical Cervical spondylosis Narcolepsy Lupus nephritis SLE (systemic lupus erythematosus) Home Medications ?Medication ?Instructions ?Recorded ?Last Taken ?Type prednisone 5 mg tablet 5 mg PO DAILY steroid for lupus 07/08/20 08/22/24 08:16 History levocetirizine 5 mg tablet 5 mg PO DAILY ALLERGIES 07/17/20 08/22/24 08:15 History blood sugar diagnostic #10 ea 11/04/20 Unknown History lancets 33 gauge #100 ea 11/04/20 Unknown History pregabalin 150 mg capsule 150 mg PO BID neuropathy 03/31/21 08/22/24 08:17 History OneTouch Verio test strips (blood #360 ea 04/17/21 Unknown Rx sugar diagnostic) hydroxychloroquine 200 mg tablet 200 mg PO DAILY antimalarial 07/08/21 08/22/24 08:13 History acetaminophen 500 mg tablet 500 mg PO Q6H PRN pain/fever 11/25/21 Unknown History ketoconazole 2 % shampoo 1 applic topical DAILY hair loss 01/04/22 10/31/23 History desvenlafaxine succinate 100 mg 100 mg PO DAILY ANTIDEPRESSANT 02/19/22 08/22/24 08:09 History tablet,extended release 24 hr Dexcom G6 Short Story Writer (blood-glucose #1 ea 03/04/22 Unknown Rx meter,continuous) cevimeline 30 mg capsule (Evoxac) 1 cap PO TID dry mouth 05/05/22 08/22/24 08:08 History BD Ultra-Fine Mini Pen Needle 31 #100 ea 06/30/22 Unknown Rx gauge x 3/16 (pen needle, diabetic) mycophenolate mofetil 250 mg 500 mg PO BID anti rejection 03/04/23 08/22/24 08:16 History capsule (CellCept) cyclosporine 25 mg capsule 75 mg PO BID autoimmune suppresant 03/05/23 08/22/24 08:08 History lancets 33 gauge (OneTouch Delica 03/05/23 Unknown History Lancets) mirtazapine 15 mg tablet 15 mg PO QHS sleep 03/05/23 08/21/24 20:15 History alpha lipoic acid 600 mg capsule 600 mg PO DAILY neuropathy 02/17/24 08/21/24 20:04 History bumetanide 1 mg tablet 1 mg PO .qd fluid retention 02/17/24 08/21/24 20:05 History carvedilol 6.25 mg tablet 6.25 mg PO BID heart function 02/17/24 08/22/24 08:07 History fluticasone propionate 50 1 spray intranasal DAILY PRN 02/17/24 Unknown History mcg/actuation nasal allergies spray,suspension (Flonase Allergy Relief) warfarin 3 mg tablet 3 mg PO .qd heart valve 02/17/24 05/25/24 History solriamfetol 75 mg tablet (Sunosi) 75 mg PO DAILY hypersomnia 03/09/24 08/22/24 08:19 History insulin pump cart,automated,BT #45 ea 04/07/24 Unknown Rx (Omnipod 5 G6 Pods (Gen 5) subcutaneous cartridge) bumetanide 2 mg tablet 2 mg PO .qam excess water 05/29/24 08/22/24 08:06 History loperamide 2 mg capsule (Imodium 2 mg PO Q6H PRN diarrhea 05/29/24 08/22/24 08:15 History A-D) Humalog U-100 Insulin 100 unit/mL 100 unit subcut DAILY diabetes #90 06/07/24 Unknown Rx subcutaneous solution (insulin mL lispro) empagliflozin 10 mg tablet 10 mg PO QDAY diabetes 06/21/24 08/22/24 08:11 History (Jardiance) Dexcom G6 Sensor (blood-glucose #3 ea 06/28/24 Unknown Rx sensor) Dexcom G6 Transmitter #1 ea 06/28/24 Unknown Rx (blood-glucose transmitter) aspirin 81 mg tablet,delayed 81 mg PO DAILY heart health 08/01/24 08/22/24 08:04 History release budesonide 1 mg/2 mL suspension 1 mg irrigation TID chronic 08/01/24 08/22/24 08:40 History for nebulization sinusitis cyclosporine modified 25 mg capsule PO antirejection 08/01/24 Unknown History efinaconazole 10 % topical 1 applic topical .qd PRN nail 08/01/24 Unknown History solution with applicator (Jublia) fungus insulin pump cart,auto,BT,G6/7 08/01/24 Unknown History (Omnipod 5 G6-G7 Pods (Gen 5) subcutaneous cartridge) ketorolac 0.5 % eye drops 1 drp LEFT EYE 4X/DAY allergies 08/01/24 08/22/24 12:00 History ofloxacin 0.3 % eye drops 1 drp ophthalmic (eye) 4X/DAY post 08/01/24 08/22/24 08:37 History cataract sx. sodium, calcium, magnesium, 3 g PO QHS hypersomnia 08/01/24 08/21/24 20:00 History potassium oxybates 0.5 gram/mL oral soln (Xywav) warfarin 1 mg tablet 4.5 mg PO .q T,TH,SAT heart valve 08/01/24 08/20/24 History warfarin 4 mg tablet PO heart valve 08/01/24 Unknown History diclofenac sodium 1 % topical gel 4.5 inch topical TID PRN JOINT PAIN 08/22/24 Unknown History ipratropium 20 mcg-albuterol 100 2 puff inhalation DAILY PRN 08/22/24 Unknown History mcg/actuation mist for inhalation wheezing (Combivent Respimat) nystatin 100,000 unit/mL oral 1 ml PO TIDCM thrush 08/22/24 Unknown History suspension oxycodone 5 mg tablet 5 mg PO TID PRN PRN pain 08/22/24 08/21/24 History sodium chloride 0.9 % irrigation 1 irrig irrigation TID chronic 08/22/24 08/22/24 08:35 History solution sinusitis fosfomycin tromethamine 3 gram 1 packet PO QODAY 3 doses #3 ea 08/23/24 Unknown Rx oral packet Allergy/AdvReac Type Severity Reaction Status Date / Time LONG Inhibitors Allergy Angioedema Verified 08/22/24 18:00 adhesive Allergy Rash Verified 08/22/24 18:00 lisinopril Allergy Angioedema Verified 08/22/24 18:00 Sulfa (Sulfonamide Allergy Rash Verified 08/22/24 18:00 Antibiotics) sulfamethoxazole (From Allergy Rash Verified 08/22/24 18:00 Bactrim) trimethoprim (From Bactrim) Allergy Rash Verified 08/22/24 18:00 tuberculin, purified protein Allergy Unknown Verified 08/22/24 18:00 deriva Family History Mother Hypertension Kidney disease ALS (amyotrophic lateral sclerosis) Father Heart disease Hypertension Kidney disease Diabetes Brother Melanoma Surgical History Tricuspid valve replaced Transplant recipient History of dilation and curettage History of biopsy History of right hip replacement Hx of right heart catheterization Kidney transplant recipient Hip replacement planned History of left heart catheterization (03/08/20) revision of right hip arthroplasty (05/10/19) port removed Status post carpal tunnel release Status post total hip replacement, bilateral S/P lymph node biopsy S/P colonoscopy History of esophagogastroduodenoscopy (EGD) S/P nasal polypectomy Social History household members: family housing: house Smoking Status: Never smoker alcohol intake: never substance use type: does not use caffeine: No what type of physical activity do you participate in: other details: PT seatbelt use: always do you feel safe at home: Yes additional social history: Single ROS ROS Narrative Review of system is otherwise noncontributory to what is already documented in HPI. Physical Exam Narrative General: Alert and oriented x3, NAD. HEENT: Normocephalic, atraumatic. Mucous membrane moist without erythema. PERRLA, EOMI. Hearing is intact. Neck: Supple, no JVD. Trachea is midline. No thyromegaly or lymphadenopathy. Cardiovascular: Normal S1, S2. No rubs, murmurs, or gallops. Respiratory: Lungs are clear to auscultation bilaterally. No wheezing, rhonchi, or rales. Abdomen: Normal bowel sounds, soft, nontender, no guarding or rebound, no organomegaly. There is a large hernia in the left abdominal area. Extremities: No clubbing, cyanosis, or edema. Musculoskeletal: Full passive range of motion, no joint swelling. Psychiatric: Normal mood and affect. Skin: Warm and dry, no rash. Neurologic: Cranial nerve II to XII are grossly intact. No focal neurologic deficits. Lab / Micro Data 08/23/24 06:17 08/23/24 06:17 Labs: Laboratory Results - last 24 hr 08/22/24 18:55: Urine Color Yellow, Urine Clarity Clear, Urine pH 6.0, Ur Specific [place] 1.015, Urine Protein 30 H, Urine Glucose (UA) 250 H, Urine Ketones Negative, Urine Occult Blood Negative, Urine Nitrite Negative, Urine Bilirubin Negative, Urine Urobilinogen Normal, Ur Leukocyte Esterase 100 H, Urine RBC 0 SEEN, Urine WBC 10-25 SEEN, Ur Squamous Epith Cells 0-5 SEEN, Urine Bacteria 2+, Urine Mucus 1+, Urine Test Negative 08/22/24 19:27: Magnesium 2.2 08/22/24 19:29: WBC 6.7, RBC 4.69, Hgb 14.5, Hct 45.5, MCV 97.0, MCH 30.9, MCHC 31.9 L, RDW Std Deviation 59.7 H, RDW Coeff of Jah 17.1 H, Plt Count 151, MPV 10.7, Immature Gran % (Auto) 0.400, Neut % (Auto) 67.6, Lymph % (Auto) 17.0 L, M beto % (Auto) 13.1 H, Eos % (Auto) 1.3, Baso % (Auto) 0.6, Absolute Neuts (auto) 4.5, Absolute Lymphs (auto) 1.14, Nucleated RBC % 0, Sodium 139, Potassium 3.4 L , Chloride 106, Carbon Dioxide 30.0, Anion Gap 4 L, BUN 28 H, Creatinine 1.73 H, Estim Creat Clear Calc 39.56, Est GFR (MDRD) Af Amer 40 L, Est GFR (MDRD) Non-Af 33 L, BUN/Creatinine Ratio 16.2, Glucose 106, Lactic Acid 0.9, Calcium 9.8 08/22/24 23:10: PT 21.3 H, INR 1.9 08/23/24 06:17: WBC 6.6, RBC 4.19 L, Hgb 13.0, Hct 40.9, MCV 97.6, MCH 31.0, M CHC 31.8 L, RDW Std Deviation 61.0 H, RDW Coeff of Jah 17.1 H, Plt Count 141 L, MPV 10.7, Immature Gran % (Auto) 0.900, Neut % (Auto) 67.6, Lymph % (Auto) 14.6 L, [place] % (Auto) 13.8 H, Eos % (Auto) 2.3, Baso % (Auto) 0.8, Absolute Neuts (auto) 4.5, Absolute Lymphs (auto) 0.96, Nucleated RBC % 0, PT 22.3 H, INR 2.0, Sodium 139, Potassium 3.7, Chloride 109 H, Carbon Dioxide 24.0, Anion Gap 6, BUN 23 H, Creatinine 1.62 H, Estim Creat Clear Calc 42.31, Est GFR (MDRD) Af Amer 43 L, Est GFR (MDRD) Non-Af 36 L, BUN/Creatinine Ratio 14.2, Glucose 143 H, Calcium 9.1, Total Bilirubin 1.20 H, AST 43 H, ALT 23, Alkaline Phosphatase 132 H, Total Protein 6.4, Albumin 2.7 L, Globulin 3.7, Albumin/Globulin Ratio 0.7 L 08/23/24 06:38: POC Glucose 119 H
[2024-08-23 11:47] LABS: Bedside Glucose 135 mg/dL (74-106)
--- NOTE | 2024-08-23 12:56 | PCM.DC.SUM ---
Providers Date of Admission: 08/22/24 Date of Discharge: 08/23/24 Primary Care Physician: Dr. Mitchell Bowen MD Consultations 08/22/24 22:42 Consult: Infectious Disease Routine Consulting Provider: Rigo Llamas Reason for Consult: Enterococcal UTI, notable resistance EMERGENT Consult: No Notified: Yes Date Notified: 08/22/24 Time Notified: 05:56 Method of Notification: Answering Service 08/23/24 09:35 Consult: Nephrology Routine Consulting Provider: Mike Parekh Reason for Consult: History of renal transplant EMERGENT Consult: No Notified: Yes Date Notified: 08/23/24 Time Notified: 09:58 Method of Notification: Answering Service Reason For Visit: ACUTE UTI, REQUIRES IV ABX Diagnosis Discharge Diagnosis (1) Urinary tract infection: Status: Acute Code(s): N39.0 - Urinary tract infection, site not specified Medications at Discharge Home Medications prednisone 5 mg tablet 5 mg PO DAILY steroid for lupus 07/08/20 levocetirizine 5 mg tablet 5 mg PO DAILY ALLERGIES 07/17/20 blood sugar diagnostic #10 ea 11/04/20 lancets 33 gauge #100 ea 11/04/20 pregabalin 150 mg capsule 150 mg PO BID neuropathy 03/31/21 efish [place] Verio test strips (blood sugar diagnostic) #360 ea 04/17/21 hydroxychloroquine 200 mg tablet 200 mg PO DAILY antimalarial 07/08/21 acetaminophen 500 mg tablet 500 mg PO Q6H PRN pain/fever 11/25/21 ketoconazole 2 % shampoo 1 applic topical DAILY hair loss 01/04/22 desvenlafaxine succinate 100 mg tablet,extended release 24 hr 100 mg PO DAILY ANTIDEPRESSANT 02/19/22 Dexcom G6 Developer Prover Mechanical (blood-glucose meter,continuous) #1 ea 03/04/22 cevimeline 30 mg capsule (Evoxac) 1 cap PO TID dry mouth 05/05/22 BD Ultra-Fine Mini Pen Needle 31 gauge x 3/16 (pen needle, diabetic) #100 ea 06/30/22 mycophenolate mofetil 250 mg capsule (CellCept) 500 mg PO BID anti rejection 03/04/23 cyclosporine 25 mg capsule 75 mg PO BID autoimmune suppresant 03/05/23 lancets 33 gauge (ShopRunner Lancets) 03/05/23 mirtazapine 15 mg tablet 15 mg PO QHS sleep 03/05/23 alpha lipoic acid 600 mg capsule 600 mg PO DAILY neuropathy 02/17/24 bumetanide 1 mg tablet 1 mg PO .qd fluid retention 02/17/24 carvedilol 6.25 mg tablet 6.25 mg PO BID heart function 02/17/24 fluticasone propionate 50 mcg/actuation nasal spray,suspension (Flonase Allergy Relief) 1 spray intranasal DAILY PRN allergies 02/17/24 warfarin 3 mg tablet 3 mg PO .qd heart valve 02/17/24 solriamfetol 75 mg tablet (Sunosi) 75 mg PO DAILY hypersomnia 03/09/24 insulin pump cart,automated,BT (Omnipod 5 G6 Pods (Gen 5) subcutaneous cartridge) #45 ea 04/07/24 bumetanide 2 mg tablet 2 mg PO .qam excess water 05/29/24 loperamide 2 mg capsule (Imodium A-D) 2 mg PO Q6H PRN diarrhea 05/29/24 Humalog U-100 Insulin 100 unit/mL subcutaneous solution (insulin lispro) 100 unit subcut DAILY diabetes #90 mL 06/07/24 empagliflozin 10 mg tablet (Jardiance) 10 mg PO QDAY diabetes 06/21/24 Dexcom G6 Sensor (blood-glucose sensor) #3 ea 06/28/24 Dexcom G6 Transmitter (blood-glucose transmitter) #1 ea 06/28/24 aspirin 81 mg tablet,delayed release 81 mg PO DAILY heart health 08/01/24 budesonide 1 mg/2 mL suspension for nebulization 1 mg irrigation TID chronic sinusitis 08/01/24 cyclosporine modified 25 mg capsule PO antirejection 08/01/24 efinaconazole 10 % topical solution with applicator (Jublia) 1 applic topical .qd PRN nail fungus 08/01/24 insulin pump cart,auto,BT,G6/7 (Omnipod 5 G6-G7 Pods (Gen 5) subcutaneous cartridge) 08/01/24 ketorolac 0.5 % eye drops 1 drp LEFT EYE 4X/DAY allergies 08/01/24 ofloxacin 0.3 % eye drops 1 drp ophthalmic (eye) 4X/DAY post cataract sx. 08/01/24 sodium, calcium, magnesium, potassium oxybates 0.5 gram/mL oral soln (Xywav) 3 g PO QHS hypersomnia 08/01/24 warfarin 1 mg tablet 4.5 mg PO .q T,TH,SAT heart valve 08/01/24 warfarin 4 mg tablet PO heart valve 08/01/24 diclofenac sodium 1 % topical gel 4.5 inch topical TID PRN JOINT PAIN 08/22/24 ipratropium 20 mcg-albuterol 100 mcg/actuation mist for inhalation (Combivent Respimat) 2 puff inhalation DAILY PRN wheezing 08/22/24 nystatin 100,000 unit/mL oral suspension 1 ml PO TIDCM thrush 08/22/24 oxycodone 5 mg tablet 5 mg PO TID PRN PRN pain 08/22/24 sodium chloride 0.9 % irrigation solution 1 irrig irrigation TID chronic sinusitis 08/22/24 fosfomycin tromethamine 3 gram oral packet 1 packet PO QODAY 3 doses #3 ea 08/23/24 Hospital Course Operations None Procedures None Summary of Care Provided Minutes Spent on Discharge: 25 Hospital Course: Patient is a 54-year-old female with a complicated past medical history including lupus nephritis status post renal transplant in 2019 who was recently diagnosed with left-sided renal carcinoma with planned upcoming nephrectomy at . She dropped off a urine sample at about 5 days prior to presentation for preop nephrectomy testing and was called and instructed to come to the emergency department as she would need IV antibiotics based on the culture results. Cultures show Enterococcus that was multidrug-resistant. It was noted to be sensitive to vancomycin so she was placed on IV vancomycin per pharmacy dosing and admitted to the hospital with an ID consult for antibiotic recommendations. Patient was seen by Dr. Martinez today and he recommended that we utilize fosfomycin for 3 days 1 packet every other day. If her symptoms do not resolve with this she is to call his office and the plan will be to transition to linezolid 600 mg twice daily for 6 days. This was not used initially as the patient is on 3 drugs that could interact with the Zyvox. If she does indeed need this we will have to hold 2 of those medications and utilize the Zyvox and then reinitiate those medications after completion of the antibiotics. IV antibiotics are trying to be avoided as the patient would need a PICC and ideally we would avoid these with upcoming nephrectomy and previous renal transplant. This was discussed with her by both myself and infectious disease. Dr. Llamas's information was given to her at discharge so she can call the office and update him if there are any issues. Nephrology also followed her while she was here and I did relay the discharge plan with Dr. Vines and he indicated he would let [facility] know what the plan is so they could proceed with nephrectomy as soon as they were comfortable. Patient was able to be discharged home in stable condition with prescription for oral fosfomycin as directed by infectious disease on 08/23/2024. Discharge diagnoses: Multidrug-resistant Enterococcus complicated UTI CKD stage IV History of lupus nephritis status post renal transplant Left-sided renal carcinoma Chronic HFpEF Chronic anemia secondary to renal disease History of polycythemia Essential hypertension Hyperlipidemia DM-2 Polyneuropathy secondary to diabetes History of lupus Allergic rhinitis GERD Valvular heart disease BRENDAN Obesity Anxiety/depression Hyperinsomnia Patient was initially admitted as a full admission as it was felt that she would need IV antibiotics and PICC placement however after ID evaluated her oral antibiotics were recommended and she was able to be discharged. Patient was transition to observation status prior to discharge. Case was discussed with utilization management physician. Physical Exam Const alert, oriented x3, no apparent distress and no limitations Constitutional Narrative: Patient is a middle-aged female sitting up in a chair at the bedside, appears comfortable, does not appear toxic General Appearance: cooperative, comfortable, well kempt and well developed Orientation / Consciousness: awake, oriented to person, oriented to place and oriented to time Exam Limitations: no limitations Nutritional Appearance: obese HEENT normocephalic, head/scalp atraumatic, hearing grossly normal bilaterally and moist oral mucous membranes Resp normal respiratory effort, no retractions, no use of accessory muscles and clear to auscultation bilaterally Cardio regular rate, regular rhythm, S1 normal heart sound, S2 normal heart sound, no murmurs and no rub GI GI Narrative: Large right lateral abdominal hernia, some distention noted with positive fluid wave especially on the right lateral aspect, nontender and bowel sounds are normal, abdomen is soft Extremity no clubbing, cyanosis or edema Extremity Narrative: Pedal and radial pulses are 2+ Neuro oriented x3, moves all extremities and no focal motor deficits Speech: speech normal Psych affect normal Psych Narrative: Very pleasant, interacts appropriately Weight / BMI Weight Weight: 82.9 kg Body Mass Index (BMI) 31.4 ABG / Lab / Microbiology Data 08/23/24 06:17 08/23/24 06:17 Laboratory: Laboratory Results - last 24 hr 08/22/24 18:55: Urine Color Yellow, Urine Clarity Clear, Urine pH 6.0, Ur Specific Warren 1.015, Urine Protein 30 H, Urine Glucose (UA) 250 H, Urine Ketones Negative, Urine Occult Blood Negative, Urine Nitrite Negative, Urine Bilirubin Negative, Urine Urobilinogen Normal, Ur Leukocyte Esterase 100 H, Urine RBC 0 SEEN, Urine WBC 10-25 SEEN, Ur Squamous Epith Cells 0-5 SEEN, Urine Bacteria 2+, Urine Mucus 1+, Urine Test Negative 08/22/24 19:27: Magnesium 2.2 08/22/24 19:29: WBC 6.7, RBC 4.69, Hgb 14.5, Hct 45.5, MCV 97.0, MCH 30.9, MCHC 31.9 L, RDW Std Deviation 59.7 H, RDW Coeff of Jah 17.1 H, Plt Count 151, MPV 10.7, Immature Gran % (Auto) 0.400, Neut % (Auto) 67.6, Lymph % (Auto) 17.0 L, Adams % (Auto) 13.1 H, Eos % (Auto) 1.3, Baso % (Auto) 0.6, Absolute Neuts (auto) 4.5, Absolute Lymphs (auto) 1.14, Nucleated RBC % 0, Sodium 139, Potassium 3.4 L, Chloride 106, Carbon Dioxide 30.0, Anion Gap 4 L, BUN 28 H, Creatinine 1.73 H, Estim Creat Clear Calc 39.56, Est GFR (MDRD) Af Amer 40 L, Est GFR (MDRD) Non-Af 33 L, BUN/Creatinine Ratio 16.2, Glucose 106, Lactic Acid 0.9, Calcium 9.8 08/22/24 23:10: PT 21.3 H, INR 1.9 08/23/24 06:17: WBC 6.6, RBC 4.19 L, Hgb 13.0, Hct 40.9, MCV 97.6, MCH 31.0, MCHC 31.8 L, RDW Std Deviation 61.0 H, RDW Coeff of Jah 17.1 H, Plt Count 141 L, MPV 10.7, Immature Gran % (Auto) 0.900, Neut % (Auto) 67.6, Lymph % (Auto) 14.6 L, Adams % (Auto) 13.8 H, Eos % (Auto) 2.3, Baso % (Auto) 0.8, Absolute Neuts (auto) 4.5, Absolute Lymphs (auto) 0.96, Nucleated RBC % 0, PT 22.3 H, INR 2.0, Sodium 139, Potassium 3.7, Chloride 109 H, Carbon Dioxide 24.0, Anion Gap 6, BUN 23 H, Creatinine 1.62 H, Estim Creat Clear Calc 42.31, Est GFR (MDRD) Af Amer 43 L, Est GFR (MDRD) Non-Af 36 L, BUN/Creatinine Ratio 14.2, Glucose 143 H, Calcium 9.1, Total Bilirubin 1.20 H, AST 43 H, ALT 23, Alkaline Phosphatase 132 H, Total Protein 6.4, Albumin 2.7 L, Globulin 3.7, Albumin/Globulin Ratio 0.7 L 08/23/24 06:38: POC Glucose 119 H 08/23/24 11:29: POC Glucose 135 H D/C Instructions Discharge Diet: - (Restart previous home) Discharge Activity: Return to Normal Activity DC O2, CPAP, BIPAP Needs Additional Home O2 Discharge instructions: No DC home with Oxygen: No Meaningful Use Info Meaningful Use Meaningful Use Diagnoses (Choose all that apply): None applicable Ischemic Stroke Statin Dosing Therapy Reference: STATIN DOSE THERAPY REFERENCE: * Patients > 75 years receive moderate or high dose statin therapy. * Patients 75 years or YOUNGER should receive HIGH intensity statin dose unless contraindicated. You will be required to document reason for non-treatment if statin daily dose does not meet guidelines. HIGH DOSE STATIN THERAPY DAILY Atorvastatin > than or = to 40 mg Rosuvastatin > than or = to 20 mg Amlodipine + Atorvastatin > than or = to 2.5/40 mg Ezetimibe + Simvastatin 10/80 mg Simvastatin 80mg Discharge Plan Admission Admit Date/Time: 08/22/24 21:15 Primary Reason for Your Visit: Multidrug-resistant UTI Attending Provider: Bushra Ambriz Primary Care Provider: Mitchell Bowen Chi Consulting Providers: Rigo Llamas; Yokasta Burgos; Mike Parekh Instructions Additional Instructions / Restrictions: 1. If your symptoms do not resolve on the fosfomycin,, please call Dr. Llamas's office and let him know because at that point he would like to try Zyvox. We did not use Zyvox at discharge as we would have to hold some of your antidepressants to do so and he wanted to try the fosfomycin first. 2. Dr. Vines will let [facility] know about the plan. Discharge Orders/Prescriptions Prescriptions: New fosfomycin tromethamine 3 gram packet 1 packet PO QODAY Qty: 3 0RF Continued (DME) blood sugar diagnostic Strip See Rx Instructions .ROUTE .MEDSUPPLY Qty: 10 Patient Comments: use 1 TEST STRIP to TEST BLOOD SUGAR daily Rx Instructions: As directed (DME) lancets 33 gauge misc See Rx Instructions .ROUTE .MEDSUPPLY Qty: 100 Patient Comments: use 1 LANCET to TEST BLOOD SUGAR daily Rx Instructions: As directed pregabalin 150 mg capsule 150 mg PO BID acetaminophen 500 mg tablet 500 mg PO Q6H PRN (Reason: pain/fever) mirtazapine 15 mg tablet 15 mg PO QHS Patient Comments: UNKNOWN DOSAGE CURRENTLY BEING TAKEN desvenlafaxine succinate 100 mg tablet extended release 24 hr 100 mg PO DAILY cevimeline [Evoxac] 30 mg capsule 1 cap PO TID mycophenolate mofetil [CellCept] 250 mg capsule 500 mg PO BID bumetanide 1 mg tablet 1 mg PO .qd Rx Instructions: Take 1 extra if a 3+ weight gain in a 24hr period, TAKE 2 MG IN AM AND 1MG IN PM (DME) lancets [OneTouch Delica Lancets] 33 gauge misc See Rx Instructions .ROUTE .MEDSUPPLY Rx Instructions: 4x/day carvedilol 6.25 mg tablet 6.25 mg PO BID warfarin 3 mg tablet 3 mg PO .qd Patient Comments: UNKNOWN DOSAGE, CONFIRM WITH PATIENT Rx Instructions: 3mg on Mon.,Wed., Fri., Sun fluticasone propionate [Flonase Allergy Relief] 50 mcg/actuation spray,suspension 1 spray intranasal DAILY PRN (Reason: allergies) Rx Instructions: administer into each nostril Sunosi 75 mg tablet 75 mg PO DAILY Jardiance 10 mg tablet 10 mg PO QDAY hydroxychloroquine 200 mg tablet 200 mg PO DAILY Patient Comments: lupus prednisone 5 mg tablet 5 mg PO DAILY levocetirizine 5 MG tablet 5 mg PO DAILY ketoconazole 2 % Shampoo 1 applic TOPICAL DAILY cyclosporine 25 mg capsule 75 mg PO BID alpha lipoic acid 600 mg capsule 600 mg PO DAILY bumetanide 2 mg tablet 2 mg PO .qam loperamide [Imodium A-D] 2 mg capsule 2 mg PO Q6H PRN (Reason: diarrhea) ofloxacin 0.3 % drops 1 drp ophthalmic (eye) 4X/DAY Patient Comments: [NO ORIGINAL SIG] Rx Instructions: apply to left eye 4x/day until bottle empty cyclosporine modified 25 mg capsule PO aspirin 81 mg tablet,delayed release (DR/EC) 81 mg PO DAILY warfarin 4 mg tablet PO Patient Comments: UNKNOWN DOSAGE, CONFIRM WITH PATIENT ketorolac 0.5 % drops 1 drp LEFT EYE 4X/DAY warfarin 1 mg tablet 4.5 mg PO .q ,,WED Patient Comments: 4.5 mg Rx Instructions: take once a day on .,, wednesday budesonide 1 mg/2 mL suspension for nebulization 1 mg irrigation TID Patient Comments: [NO ORIGINAL SIG] Rx Instructions: pt. to instill into saline irrigation and irrigate nasal passages TID Jublia 10 % solution with applicator 1 applic topical .qd PRN (Reason: nail fungus) Xywav 0.5 gram/mL solution 3 g PO QHS (DME) Omnipod 5 G6-G7 Pods (Gen 5) Cartridge subcut nystatin 100,000 unit/mL suspension 1 ml PO TIDCM Rx Instructions: swish and swallow diclofenac sodium 1 % gel 4.5 inch topical TID PRN (Reason: JOINT PAIN) Combivent Respimat 20-100 mcg/actuation mist 2 puff inhalation DAILY PRN (Reason: wheezing) oxycodone 5 mg tablet 5 mg PO TID PRN PRN (Reason: pain) sodium chloride 0.9 % solution 1 irrig irrigation TID Patient Comments: [NO ORIGINAL SIG] (DME) OneTouch Verio test strips Strip See Rx Instructions .ROUTE .MEDSUPPLY Qty: 360 3RF Rx Instructions: As directed up to 4x daily to monitor glucose levels (DME) Dexcom G6 Developer Prover Mechanical Misc See Rx Instructions .Route Qty: 1 0RF Rx Instructions: As directed (DME) pen needle, diabetic [BD Ultra-Fine Mini Pen Needle] 31 gauge x 3/16 needle See Rx Instructions .ROUTE .MEDSUPPLY Qty: 100 3RF Rx Instructions: 3x/day (DME) Omnipod 5 G6 Pods (Gen 5) Cartridge See Rx Instructions .Route Qty: 45 1RF Rx Instructions: 1 pod q 48 hours insulin lispro [Humalog U-100 Insulin] 100 unit/mL solution 100 unit subcut DAILY Qty: 90 1RF Patient Comments: 3 unit basal rate; for every 10 carbs PLUS sliding scale 3 units every 10 points of BG>130 Rx Instructions: via pump (DME) Dexcom G6 Sensor Device See Rx Instructions .Route Qty: 3 3RF Rx Instructions: 1 sensor q 10 days (DME) Dexcom G6 Transmitter Device See Rx Instructions .Route Qty: 1 1RF Rx Instructions: 1 q 90 days Referrals / Follow Up: Mitchell Bowen Chi, MD [Primary Care Provider] - In 1 Week Disposition Disposition (needs filled in before D/C Order can be placed): Home, Self Care Charges/Coding Visit Charges Inpatient E&M: 41246 Disch Hosp
--- NOTE | 2024-08-23 13:30 | CASEMGMT ---
RN CM Face to Face with patient for initial transition planning/care coordination assessment. RN CM introduced self and role at [facility]. Patient lying in bed, alert and oriented. Patient willing to participate in assessment and is able to answer all questions appropriately. Care providers, pharmacy, and demographics verified. Strata: 3 PCP: Andrés Specialists: transplant nephrology; Everette, pain; Damon, supervisor wrapping room; Linus, ENT; Savannah, GI;, Social Service Manager Preferred Pharmacy: [place]; [facility] Retail at discharge Insurance: [place] [employer] [employer] Prescription Benefit: yes Living Will/HPOA: none LNOK: Brother Living Arrangements: Patient lives with brother in a 2 story home with bed and bath on first floor. Patient states she is independent at home. Transportation: [facility] Van, insurance DME/HHC: Patient she has cpap and glucometer at home. HHC in the past. Patient has aide through [email or web address] 3x per week. Patient has been to [facility] in the past. Patient wishes to discharge home, denies need for home health at this time. Patient states he has no further needs or concerns at this time. CM to follow for discharge planning needs that may arise. Disposition Plan: Patient to discharge home with family support and follow-up plans in place. Agata BORRERO, RN, CM
--- NOTE | 2024-08-23 13:30 | PCM.CONS.GEN ---
Assessment & Plan Assessment/Plan (1) Status post kidney transplant: (2) Polyneuropathy due to type 2 diabetes mellitus: (3) Urinary tract infection: PLAN: Ucx with enterococcus. Will try to avoid vanc and picc due to CKD. On 3 meds with possible serotonin syndrome risk, so avoiding linezolid for now. Will order po fosfomycin x3 doses. If sx worsen, she is to call. Will follow as needed, thank you, d/w Dr. 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 No fever, no back pain. No recent change in immunosuppression. Ucx at with enterococcus, admitted on vanc, feeling a little better. Full ROS performed and neg except as noted above. [facility] Medical History Chronic sinusitis Incisional hernia CKD (chronic kidney disease) stage 4, GFR 15-29 ml/min Wears glasses Wears dentures Post-menopausal Insulin dependent diabetes mellitus Uses wheelchair Walker as ambulation aid Ambulates with cane Lupus Fatty liver Gastric reflux Non-smoker CPAP (continuous positive airway pressure) dependence Shortness of breath on exertion History of echocardiogram History of stress test Cardiology follow-up encounter Obstructive sleep apnea CHF with right heart failure Diastolic CHF, chronic Right ventricular dilation Essential hypertension Osteopenia Vitamin D deficiency 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) Hypophosphatemia Hip pain Prolonged QT interval Chronic diarrhea Nonrheumatic mitral (valve) insufficiency Secondary pulmonary arterial hypertension Non-rheumatic tricuspid valve insufficiency Degenerative disc disease, cervical Cervical spondylosis Narcolepsy Lupus nephritis SLE (systemic lupus erythematosus) Home Medications ?Medication ?Instructions ?Recorded ?Last Taken ?Type prednisone 5 mg tablet 5 mg PO DAILY steroid for lupus 07/08/20 08/22/24 08:16 History levocetirizine 5 mg tablet 5 mg PO DAILY ALLERGIES 07/17/20 08/22/24 08:15 History blood sugar diagnostic #10 ea 11/04/20 Unknown History lancets 33 gauge #100 ea 11/04/20 Unknown History pregabalin 150 mg capsule 150 mg PO BID neuropathy 03/31/21 08/22/24 08:17 History OneTouch Verio test strips (blood #360 ea 04/17/21 Unknown Rx sugar diagnostic) hydroxychloroquine 200 mg tablet 200 mg PO DAILY antimalarial 07/08/21 08/22/24 08:13 History acetaminophen 500 mg tablet 500 mg PO Q6H PRN pain/fever 11/25/21 Unknown History ketoconazole 2 % shampoo 1 applic topical DAILY hair loss 01/04/22 10/31/23 History desvenlafaxine succinate 100 mg 100 mg PO DAILY ANTIDEPRESSANT 02/19/22 08/22/24 08:09 History tablet,extended release 24 hr Dexcom G6 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 (blood-glucose #1 ea 03/04/22 Unknown Rx meter,continuous) cevimeline 30 mg capsule (Evoxac) 1 cap PO TID dry mouth 05/05/22 08/22/24 08:08 History BD Ultra-Fine Mini Pen Needle 31 #100 ea 06/30/22 Unknown Rx gauge x 3/16 (pen needle, diabetic) mycophenolate mofetil 250 mg 500 mg PO BID anti rejection 03/04/23 08/22/24 08:16 History capsule (CellCept) cyclosporine 25 mg capsule 75 mg PO BID autoimmune suppresant 03/05/23 08/22/24 08:08 History lancets 33 gauge (OneTouch Delica 03/05/23 Unknown History Lancets) mirtazapine 15 mg tablet 15 mg PO QHS sleep 03/05/23 08/21/24 20:15 History alpha lipoic acid 600 mg capsule 600 mg PO DAILY neuropathy 02/17/24 08/21/24 20:04 History bumetanide 1 mg tablet 1 mg PO .qd fluid retention 02/17/24 08/21/24 20:05 History carvedilol 6.25 mg tablet 6.25 mg PO BID heart function 02/17/24 08/22/24 08:07 History fluticasone propionate 50 1 spray intranasal DAILY PRN 02/17/24 Unknown History mcg/actuation nasal allergies spray,suspension (Flonase Allergy Relief) warfarin 3 mg tablet 3 mg PO .qd heart valve 02/17/24 05/25/24 History solriamfetol 75 mg tablet (Sunosi) 75 mg PO DAILY hypersomnia 03/09/24 08/22/24 08:19 History insulin pump cart,automated,BT #45 ea 04/07/24 Unknown Rx (Omnipod 5 G6 Pods (Gen 5) subcutaneous cartridge) bumetanide 2 mg tablet 2 mg PO .qam excess water 05/29/24 08/22/24 08:06 History loperamide 2 mg capsule (Imodium 2 mg PO Q6H PRN diarrhea 05/29/24 08/22/24 08:15 History A-D) Humalog U-100 Insulin 100 unit/mL 100 unit subcut DAILY diabetes #90 06/07/24 Unknown Rx subcutaneous solution (insulin mL lispro) empagliflozin 10 mg tablet 10 mg PO QDAY diabetes 06/21/24 08/22/24 08:11 History (Jardiance) Dexcom G6 Sensor (blood-glucose #3 ea 06/28/24 Unknown Rx sensor) Dexcom G6 Transmitter #1 ea 06/28/24 Unknown Rx (blood-glucose transmitter) aspirin 81 mg tablet,delayed 81 mg PO DAILY heart health 08/01/24 08/22/24 08:04 History release budesonide 1 mg/2 mL suspension 1 mg irrigation TID chronic 08/01/24 08/22/24 08:40 History for nebulization sinusitis cyclosporine modified 25 mg capsule PO antirejection 08/01/24 Unknown History efinaconazole 10 % topical 1 applic topical .qd PRN nail 08/01/24 Unknown History solution with applicator (Jublia) fungus insulin pump cart,auto,BT,G6/7 08/01/24 Unknown History (Omnipod 5 G6-G7 Pods (Gen 5) subcutaneous cartridge) ketorolac 0.5 % eye drops 1 drp LEFT EYE 4X/DAY allergies 08/01/24 08/22/24 12:00 History ofloxacin 0.3 % eye drops 1 drp ophthalmic (eye) 4X/DAY post 08/01/24 08/22/24 08:37 History cataract sx. sodium, calcium, magnesium, 3 g PO QHS hypersomnia 08/01/24 08/21/24 20:00 History potassium oxybates 0.5 gram/mL oral soln (Xywav) warfarin 1 mg tablet 4.5 mg PO .q T,TH,SAT heart valve 08/01/24 08/20/24 History warfarin 4 mg tablet PO heart valve 08/01/24 Unknown History diclofenac sodium 1 % topical gel 4.5 inch topical TID PRN JOINT PAIN 08/22/24 Unknown History ipratropium 20 mcg-albuterol 100 2 puff inhalation DAILY PRN 08/22/24 Unknown History mcg/actuation mist for inhalation wheezing (Combivent Respimat) nystatin 100,000 unit/mL oral 1 ml PO TIDCM thrush 08/22/24 Unknown History suspension oxycodone 5 mg tablet 5 mg PO TID PRN PRN pain 08/22/24 08/21/24 History sodium chloride 0.9 % irrigation 1 irrig irrigation TID chronic 08/22/24 08/22/24 08:35 History solution sinusitis fosfomycin tromethamine 3 gram 1 packet PO QODAY 3 doses #3 ea 08/23/24 Unknown Rx oral packet Allergy/AdvReac Type Severity Reaction Status Date / Time LONG Inhibitors Allergy Angioedema Verified 08/22/24 18:00 adhesive Allergy Rash Verified 08/22/24 18:00 lisinopril Allergy Angioedema Verified 08/22/24 18:00 Sulfa (Sulfonamide Allergy Rash Verified 08/22/24 18:00 Antibiotics) sulfamethoxazole (From Allergy Rash Verified 08/22/24 18:00 Bactrim) trimethoprim (From Bactrim) Allergy Rash Verified 08/22/24 18:00 tuberculin, purified protein Allergy Unknown Verified 08/22/24 18:00 deriva Family History Mother Hypertension Kidney disease ALS (amyotrophic lateral sclerosis) Father Heart disease Hypertension Kidney disease Diabetes Brother Melanoma Surgical History Tricuspid valve replaced Transplant recipient History of dilation and curettage History of biopsy History of right hip replacement Hx of right heart catheterization Kidney transplant recipient Hip replacement planned History of left heart catheterization (03/08/20) revision of right hip arthroplasty (05/10/19) port removed Status post carpal tunnel release Status post total hip replacement, bilateral S/P lymph node biopsy S/P colonoscopy History of esophagogastroduodenoscopy (EGD) S/P nasal polypectomy Social History household members: family housing: house Smoking Status: Never smoker alcohol intake: never substance use type: does not use caffeine: No what type of physical activity do you participate in: other details: PT seatbelt use: always do you feel safe at home: Yes additional social history: Single Physical Exam Const alert, oriented x3 and no apparent distress General Appearance: cooperative HEENT normocephalic and head/scalp atraumatic Eyes PERRL and EOMs intact bilaterally Neck supple and No nodes Lymph Lymphatic: no lymphadenopathy noted Resp normal air movement and clear to auscultation bilaterally Cardio regular rate and regular rhythm GI soft to palpation, non-tender and non-distended Extremity General Extremity: Negative for edema Skin no rashes or lesions noted Neuro CN's II-XII intact bilaterally Lab / Micro Data Attestation: I reviewed the patient's lab results. 08/23/24 06:17 08/23/24 06:17 Labs: Laboratory Results - last 24 hr 08/22/24 18:55: Urine Color Yellow, Urine Clarity Clear, Urine pH 6.0, Ur Specific [place] 1.015, Urine Protein 30 H, Urine Glucose (UA) 250 H, Urine Ketones Negative, Urine Occult Blood Negative, Urine Nitrite Negative, Urine Bilirubin Negative, Urine Urobilinogen Normal, Ur Leukocyte Esterase 100 H, Urine RBC 0 SEEN, Urine WBC 10-25 SEEN, Ur Squamous Epith Cells 0-5 SEEN, Urine Bacteria 2+, Urine Mucus 1+, Urine Test Negative 08/22/24 19:27: Magnesium 2.2 08/22/24 19:29: WBC 6.7, RBC 4.69, Hgb 14.5, Hct 45.5, MCV 97.0, MCH 30.9, MCHC 31.9 L, RDW Std Deviation 59.7 H, RDW Coeff of Jah 17.1 H, Plt Count 151, MPV 10.7, Immature Gran % (Auto) 0.400, Neut % (Auto) 67.6, Lymph % (Auto) 17.0 L, [place] % (Auto) 13.1 H, Eos % (Auto) 1.3, Baso % (Auto) 0.6, Absolute Neuts (auto) 4.5, Absolute Lymphs (auto) 1.14, Nucleated RBC % 0, Sodium 139, Potassium 3.4 L, Chloride 106, Carbon Dioxide 30.0, Anion Gap 4 L, BUN 28 H, Creatinine 1.73 H, Estim Creat Clear Calc 39.56, Est GFR (MDRD) Af Amer 40 L, Est GFR (MDRD) Non-Af 33 L, BUN/Creatinine Ratio 16.2, Glucose 106, Lactic Acid 0.9, Calcium 9.8 08/22/24 23:10: PT 21.3 H, INR 1.9 08/23/24 06:17: WBC 6.6, RBC 4.19 L, Hgb 13.0, Hct 40.9, MCV 97.6, MCH 31.0, MCHC 31.8 L, RDW Std Deviation 61.0 H, RDW Coeff of Jah 17.1 H, Plt Count 141 L, MPV 10.7, Immature Gran % (Auto) 0.900, Neut % (Auto) 67.6, Lymph % (Auto) 14.6 L, [place] % (Auto) 13.8 H, Eos % (Auto) 2.3, Baso % (Auto) 0.8, Absolute Neuts (auto) 4.5, Absolute Lymphs (auto) 0.96, Nucleated RBC % 0, PT 22.3 H, INR 2.0, Sodium 139, Potassium 3.7, Chloride 109 H, Carbon Dioxide 24.0, Anion Gap 6, BUN 23 H, Creatinine 1.62 H, Estim Creat Clear Calc 42.31, Est GFR (MDRD) Af Amer 43 L, Est GFR (MDRD) Non-Af 36 L, BUN/Creatinine Ratio 14.2, Glucose 143 H, Calcium 9.1, Total Bilirubin 1.20 H, AST 43 H, ALT 23, Alkaline Phosphatase 132 H, Total Protein 6.4, Albumin 2.7 L, Globulin 3.7, Albumin/Globulin Ratio 0.7 L 08/23/24 06:38: POC Glucose 119 H 08/23/24 11:29: POC Glucose 135 H
[2024-08-23] MEDS: 0.9% Saline Lock 10 ML Syringe IV (14:02)
[2024-08-23 14:03] VITALS: BP 125/86; PULSE 69; RESP 16; TEMP 36.4; O2SAT 97
--- NOTE | 2024-08-23 14:38 | CASEMGMT ---
Addendum entered by Agata Reyes 08/23/24 15:37: ROSHAN ALCARAZ called [facility] to inquire if medications was approved from prior auth. Per Radha, medication went through for no copay and was delivered to patient's room. Original Note: ROSHAN ALCARAZ called [facility] to [place] check fosomycin, Prior auth required. ROSHAN ALCARAZ called and completed prior auth over the phone with patient's insurance with request for patient to be completed urgently. Ref#[id number], awaiting approval.
--- NOTE | 2024-08-23 15:03 | PHA.DC.MC.R ---
Pharmacy [facility] has performed discharge medication reconciliation and counseling for this patient. Patient requested delivery. This [facility] called retail and requested delivery when ready. 1. FOSFOMYCIN 3GM PO EVERY OTHER DAY FOR 3 DOSES. The patient's discharge medication list was reviewed for discrepancies and discrepancies were resolved. The patient was counseled on the following discharge medications and changes in medications for homegoing were reviewed. The Reason for Use, instructions for use, and potential side effects were reviewed for all new medications. The patient's questions regarding all of their medications were answered. The patient was able to verbally demonstrate an understanding of their discharge medications. Medications at Discharge Home Medications prednisone 5 mg tablet 5 mg PO DAILY steroid for lupus 07/08/20 levocetirizine 5 mg tablet 5 mg PO DAILY ALLERGIES 07/17/20 blood sugar diagnostic #10 ea 11/04/20 lancets 33 gauge #100 ea 11/04/20 pregabalin 150 mg capsule 150 mg PO BID neuropathy 03/31/21 OneTouch Verio test strips (blood sugar diagnostic) #360 ea 04/17/21 hydroxychloroquine 200 mg tablet 200 mg PO DAILY antimalarial 07/08/21 acetaminophen 500 mg tablet 500 mg PO Q6H PRN pain/fever 11/25/21 ketoconazole 2 % shampoo 1 applic topical DAILY hair loss 01/04/22 desvenlafaxine succinate 100 mg tablet,extended release 24 hr 100 mg PO DAILY ANTIDEPRESSANT 02/19/22 Dexcom G6 Crusher Setter (blood-glucose meter,continuous) #1 ea 03/04/22 cevimeline 30 mg capsule (Evoxac) 1 cap PO TID dry mouth 05/05/22 BD Ultra-Fine Mini Pen Needle 31 gauge x 3/16 (pen needle, diabetic) #100 ea 06/30/22 mycophenolate mofetil 250 mg capsule (CellCept) 500 mg PO BID anti rejection 03/04/23 cyclosporine 25 mg capsule 75 mg PO BID autoimmune suppresant 03/05/23 lancets 33 gauge (OneTouch Delica Lancets) 03/05/23 mirtazapine 15 mg tablet 15 mg PO QHS sleep 03/05/23 alpha lipoic acid 600 mg capsule 600 mg PO DAILY neuropathy 02/17/24 bumetanide 1 mg tablet 1 mg PO .qd fluid retention 02/17/24 carvedilol 6.25 mg tablet 6.25 mg PO BID heart function 02/17/24 fluticasone propionate 50 mcg/actuation nasal spray,suspension (Flonase Allergy Relief) 1 spray intranasal DAILY PRN allergies 02/17/24 warfarin 3 mg tablet 3 mg PO .qd heart valve 02/17/24 solriamfetol 75 mg tablet (Sunosi) 75 mg PO DAILY hypersomnia 03/09/24 insulin pump cart,automated,BT (Omnipod 5 G6 Pods (Gen 5) subcutaneous cartridge) #45 ea 04/07/24 bumetanide 2 mg tablet 2 mg PO .qam excess water 05/29/24 loperamide 2 mg capsule (Imodium A-D) 2 mg PO Q6H PRN diarrhea 05/29/24 Humalog U-100 Insulin 100 unit/mL subcutaneous solution (insulin lispro) 100 unit subcut DAILY diabetes #90 mL 06/07/24 empagliflozin 10 mg tablet (Jardiance) 10 mg PO QDAY diabetes 06/21/24 Dexcom G6 Sensor (blood-glucose sensor) #3 ea 06/28/24 Dexcom G6 Transmitter (blood-glucose transmitter) #1 ea 06/28/24 aspirin 81 mg tablet,delayed release 81 mg PO DAILY heart health 08/01/24 budesonide 1 mg/2 mL suspension for nebulization 1 mg irrigation TID chronic sinusitis 08/01/24 cyclosporine modified 25 mg capsule PO antirejection 08/01/24 efinaconazole 10 % topical solution with applicator (Jublia) 1 applic topical .qd PRN nail fungus 08/01/24 insulin pump cart,auto,BT,G6/7 (Omnipod 5 G6-G7 Pods (Gen 5) subcutaneous cartridge) 08/01/24 ketorolac 0.5 % eye drops 1 drp LEFT EYE 4X/DAY allergies 08/01/24 ofloxacin 0.3 % eye drops 1 drp ophthalmic (eye) 4X/DAY post cataract sx. 08/01/24 sodium, calcium, magnesium, potassium oxybates 0.5 gram/mL oral soln (Xywav) 3 g PO QHS hypersomnia 08/01/24 warfarin 1 mg tablet 4.5 mg PO .q T,,SAT heart valve 08/01/24 warfarin 4 mg tablet PO heart valve 08/01/24 diclofenac sodium 1 % topical gel 4.5 inch topical TID PRN JOINT PAIN 08/22/24 ipratropium 20 mcg-albuterol 100 mcg/actuation mist for inhalation (Combivent Respimat) 2 puff inhalation DAILY PRN wheezing 08/22/24 nystatin 100,000 unit/mL oral suspension 1 ml PO TIDCM thrush 08/22/24 oxycodone 5 mg tablet 5 mg PO TID PRN PRN pain 08/22/24 sodium chloride 0.9 % irrigation solution 1 irrig irrigation TID chronic sinusitis 08/22/24 fosfomycin tromethamine 3 gram oral packet 1 packet PO QODAY 3 doses #3 ea 08/23/24
== END 2024-08-23 13:42 | disposition home or self-care (01) ==
LOC: ED 19:21 → PCU 08-23 06:52
PROVIDERS: Admitting Provider Family Medicine; Emergency Provider Emergency Medicine; PCP Family Medicine Geriatric Medicine; Visit Provider Internal Medicine
DX: N39.0 Urinary tract infection, site not specified (principal); I13.2 Hypertensive heart and chronic kidney disease with heart failure and with stage 5 chronic kidney disease, or end stage renal disease; N18.4 Chronic kidney disease, stage 4 (severe); C64.2 Malignant neoplasm of left kidney, except renal pelvis; I50.32 Chronic diastolic (congestive) heart failure; M32.9 Systemic lupus erythematosus, unspecified; E11.22 Type 2 diabetes mellitus with diabetic chronic kidney disease; E11.42 Type 2 diabetes mellitus with diabetic polyneuropathy; Z94.0 Kidney transplant status; D50.9 Iron deficiency anemia, unspecified; E66.9 Obesity, unspecified; G47.33 Obstructive sleep apnea (adult) (pediatric); E78.5 Hyperlipidemia, unspecified; K21.9 Gastro-esophageal reflux disease without esophagitis; Z79.52 Long term (current) use of systemic steroids; Z79.84 Long term (current) use of oral hypoglycemic drugs; Z79.01 Long term (current) use of anticoagulants; Z96.41 Presence of insulin pump (external) (internal); Z79.82 Long term (current) use of aspirin; J30.9 Allergic rhinitis, unspecified; B95.2 Enterococcus as the cause of diseases classified elsewhere; F41.9 Anxiety disorder, unspecified; D63.1 Anemia in chronic kidney disease
CPT/HCPCS: 36415; 80048; 80053; 81001; 81025; 82962; 83605; 83735; 85025; 85610; 87040; 94668; 96361; 96365; 96366; 99221; 99284; A4216; G0378

== ENCOUNTER → 2024-08-30 | Outpatient (CLI) | payer MEDICARE, MEDICAID, SELFPAY ==
[2024-07-19 10:16] VITALS: BMI 31.2
[2024-08-30 15:53] LABS: Absolute Lymphocyte Count 1.27 X10^3/uL (0.83-4.51); Absolute Neutrophil Count 5.4 X10^3/uL (2.0-7.7); Basophil# 0.03 X10^3/uL; Basophil% 0.4 % (0-1); Eosinophil# 0.09 X10^3/uL; Eosinophils% 1.2 % (0-5); Hematocrit 46.2 % (37-47); Hemoglobin 14.8 g/dL (12.0-15.0); Lymphocyte # 1.27 X10^3/ul (0.83-4.51); Mean Corpuscular Volume 96.7 fL (81-99); Mean Platelet Vol. 10.4 fl (6.2-12.0); Monocyte# 0.71 X10^3/uL; Monocyte% 9.5 % (0-10); NRBC Flagged by Analyzer 0 % (0-5); Neutrophil # 5.36 X10^3/uL (2.7-7.7); Neutrophil % 71.5 % (47-70); Platelet Count 170 K/mm3 (150-450); RBC Distribution Width SD 56.9 fl (35.1-43.9); Red Blood Count 4.78 M/mm3 (4.2-5.4); White Blood Count 7.5 K/mm3 (4.4-11.0)
[2024-08-30 16:19] LABS: Hemoglobin A1c 6.1 % (3.8-5.6)
[2024-08-30 16:36] LABS: ALB/GLOB Ratio 0.7 RATIO (0.9-2.4); AST(SGOT) 56 U/L (15-37); Alanine Aminotransfer ALT/SGPT 24 U/L (13-56); Albumin, Serum 3.2 g/dL (3.2-5.0); Alkaline Phosphatase 166 U/L (45-117); Anion Gap 7 (5-15); BUN 17 mg/dL (7-18); BUN/Creat Ratio 11.3 RATIO (10-20); Calcium,Total 9.4 mg/dL (8.5-10.1); Chloride 105 mmol/L (98-107); Cholesterol 159 mg/dL (200); Creatinine, Serum 1.51 mg/dL (0.55-1.02); EST Glomerular Filtration Rate 39 mL/min (>60); Est Glom Filt Rate - Afr Amer 47 mL/min (>60); Globulin 4.7 g/dL (2.2-4.2); Glucose 117 mg/dL (74-106); High Density Lipoprotein 56 mg/dL; Potassium 3.8 mmol/L (3.5-5.1); Protein, Total 7.9 g/dL (6.4-8.2); Sodium Level 139 mmol/L (136-145); Triglycerides 213 mg/dL; Very Low Density Lipoprotein 43 mg/dL (5-40)
== END | disposition home or self-care (01) ==
LOC: POLAB3 15:33
PROVIDERS: PCP Family Medicine Geriatric Medicine; Visit Provider Family Medicine Geriatric Medicine
DX: E11.65 Type 2 diabetes mellitus with hyperglycemia (principal); E78.2 Mixed hyperlipidemia; I10 Essential (primary) hypertension
CPT/HCPCS: 36415; 80053; 80061; 83036; 84443; 85025

== ENCOUNTER → 2024-09-21 | Outpatient (CLI) | payer MEDICARE, MEDICAID, SELFPAY ==
[2024-07-19 10:16] VITALS: BMI 31.2
== END | disposition home or self-care (01) ==
PROVIDERS: PCP Family Medicine Geriatric Medicine; Referring Provider Family Medicine Geriatric Medicine; Visit Provider Family Medicine Geriatric Medicine
DX: T81.321A Disruption or dehiscence of closure of internal operation (surgical) wound of abdominal wall muscle or fascia, initial encounter (principal); X58.XXXA Exposure to other specified factors, initial encounter
CPT/HCPCS: 87070; 87205

== ENCOUNTER 2024-10-05 10:20 | Outpatient (RCR) | payer MEDICARE, MEDICAID, SELFPAY ==
[2024-07-19 10:16] VITALS: BMI 31.2
[2024-10-05 11:02] VITALS: BP 97/57; PULSE 81; RESP 18; TEMP 36.5
--- NOTE | 2024-10-05 12:13 | PCM.WC.HP ---
History of Present Illness Date of Service: 10/05/24 Chief Complaint: Bilateral Buttock Ulcers History of Wound: Miss Plummer is a 54 yo who was referred to the wound center by her PCP due to bilateral buttock ulcers. She also presents with an abdominal nonhealing wound. Had a left total nephrectomy due to renal cancer less than a month ago at the [facility]. She has not seen her primary surgeon who had advised that she come in for this. This wound was not addressed. Bilateral buttock ulcers said to have started a week ago. Following her surgery, had been largely bedbound and not moving as much. She states that this has changed, able to move and reposition better. Has not really done anything to the buttock ulcers. Has home health coming 2 times a week. History of diabetes mellitus, last A1c said to be 6.1. Also history of lupus and renal transplant. She admits to a poor appetite. [facility] Medical History (Updated 10/05/24 @ 13:[address] Felipe Wagoner MD) History of renal cell cancer Debility Immunosuppression due to drug therapy Decubitus ulcer of right buttock, stage 3 Decubitus ulcer of left buttock, stage 3 Polyneuropathy due to type 2 diabetes mellitus Chronic sinusitis Incisional hernia CKD (chronic kidney disease) stage 4, GFR 15-29 ml/min Wears glasses Wears dentures Post-menopausal Insulin dependent diabetes mellitus Uses wheelchair Walker as ambulation aid Ambulates with cane Lupus Fatty liver Gastric reflux Non-smoker CPAP (continuous positive airway pressure) dependence Shortness of breath on exertion History of echocardiogram History of stress test Cardiology follow-up encounter Obstructive sleep apnea CHF with right heart failure Diastolic CHF, chronic Right ventricular dilation Essential hypertension Osteopenia Vitamin D deficiency 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) Hypophosphatemia Hip pain Prolonged QT interval Chronic diarrhea Nonrheumatic mitral (valve) insufficiency Secondary pulmonary arterial hypertension Non-rheumatic tricuspid valve insufficiency Degenerative disc disease, cervical Cervical spondylosis Narcolepsy Lupus nephritis SLE (systemic lupus erythematosus) Home Medications ?Medication ?Instructions ?Recorded ?Last Taken ?Type prednisone 5 mg tablet 5 mg PO DAILY steroid for lupus 07/08/20 08/22/24 08:16 History levocetirizine 5 mg tablet 5 mg PO DAILY ALLERGIES 07/17/20 08/22/24 08:15 History blood sugar diagnostic #10 ea 11/04/20 Unknown History lancets 33 gauge #100 ea 11/04/20 Unknown History pregabalin 150 mg capsule 150 mg PO BID neuropathy 03/31/21 08/22/24 08:17 History OneTouch Verio test strips (blood #360 ea 04/17/21 Unknown Rx sugar diagnostic) hydroxychloroquine 200 mg tablet 200 mg PO DAILY antimalarial 07/08/21 08/22/24 08:13 History acetaminophen 500 mg tablet 500 mg PO Q6H PRN pain/fever 11/25/21 Unknown History ketoconazole 2 % shampoo 1 applic topical DAILY hair loss 01/04/22 10/31/23 History desvenlafaxine succinate 100 mg 100 mg PO DAILY ANTIDEPRESSANT 02/19/22 08/22/24 08:09 History tablet,extended release 24 hr Dexcom G6 Auto [employer]inee (blood-glucose #1 ea 03/04/22 Unknown Rx meter,continuous) cevimeline 30 mg capsule (Evoxac) 1 cap PO TID dry mouth 05/05/22 08/22/24 08:08 History BD Ultra-Fine Mini Pen Needle 31 #100 ea 06/30/22 Unknown Rx gauge x 3/16 (pen needle, diabetic) mycophenolate mofetil 250 mg 500 mg PO BID anti rejection 03/04/23 08/22/24 08:16 History capsule (CellCept) cyclosporine 25 mg capsule 75 mg PO BID autoimmune suppresant 03/05/23 08/22/24 08:08 History lancets 33 gauge (OneTouch Delica 03/05/23 Unknown History Lancets) mirtazapine 15 mg tablet 15 mg PO QHS sleep 03/05/23 08/21/24 20:15 History alpha lipoic acid 600 mg capsule 600 mg PO DAILY neuropathy 02/17/24 08/21/24 20:04 History bumetanide 1 mg tablet 1 mg PO .qd fluid retention 02/17/24 08/21/24 20:05 History carvedilol 6.25 mg tablet 6.25 mg PO BID heart function 02/17/24 08/22/24 08:07 History fluticasone propionate 50 1 spray intranasal DAILY PRN 02/17/24 Unknown History mcg/actuation nasal allergies spray,suspension (Flonase Allergy Relief) warfarin 3 mg tablet 3 mg PO .qd heart valve 02/17/24 05/25/24 History solriamfetol 75 mg tablet (Sunosi) 75 mg PO DAILY hypersomnia 03/09/24 08/22/24 08:19 History insulin pump cart,automated,BT #45 ea 04/07/24 Unknown Rx (Omnipod 5 G6 Pods (Gen 5) subcutaneous cartridge) bumetanide 2 mg tablet 2 mg PO .qam excess water 05/29/24 08/22/24 08:06 History loperamide 2 mg capsule (Imodium 2 mg PO Q6H PRN diarrhea 05/29/24 08/22/24 08:15 History A-D) Humalog U-100 Insulin 100 unit/mL 100 unit subcut DAILY diabetes #90 06/07/24 Unknown Rx subcutaneous solution (insulin mL lispro) empagliflozin 10 mg tablet 10 mg PO QDAY diabetes 06/21/24 08/22/24 08:11 History (Jardiance) Dexcom G6 Sensor (blood-glucose #3 ea 06/28/24 Unknown Rx sensor) Dexcom G6 Transmitter #1 ea 06/28/24 Unknown Rx (blood-glucose transmitter) aspirin 81 mg tablet,delayed 81 mg PO DAILY heart health 08/01/24 08/22/24 08:04 History release budesonide 1 mg/2 mL suspension 1 mg irrigation TID chronic 08/01/24 08/22/24 08:40 History for nebulization sinusitis cyclosporine modified 25 mg capsule PO antirejection 08/01/24 Unknown History efinaconazole 10 % topical 1 applic topical .qd PRN nail 08/01/24 Unknown History solution with applicator (Jublia) fungus ketorolac 0.5 % eye drops 1 drp LEFT EYE 4X/DAY allergies 08/01/24 08/22/24 12:00 History ofloxacin 0.3 % eye drops 1 drp ophthalmic (eye) 4X/DAY post 08/01/24 08/22/24 08:37 History cataract sx. sodium, calcium, magnesium, 3 g PO QHS hypersomnia 08/01/24 08/21/24 20:00 History potassium oxybates 0.5 gram/mL oral soln (Xywav) warfarin 1 mg tablet 4.5 mg PO .q T,TH,SAT heart valve 08/01/24 08/20/24 History warfarin 4 mg tablet PO heart valve 08/01/24 Unknown History diclofenac sodium 1 % topical gel 4.5 inch topical TID PRN JOINT PAIN 08/22/24 Unknown History ipratropium 20 mcg-albuterol 100 2 puff inhalation DAILY PRN 08/22/24 Unknown History mcg/actuation mist for inhalation wheezing (Combivent Respimat) nystatin 100,000 unit/mL oral 1 ml PO TIDCM thrush 08/22/24 Unknown History suspension oxycodone 5 mg tablet 5 mg PO TID PRN PRN pain 08/22/24 08/21/24 History sodium chloride 0.9 % irrigation 1 irrig irrigation TID chronic 08/22/24 08/22/24 08:35 History solution sinusitis fosfomycin tromethamine 3 gram 1 packet PO QODAY 3 doses #3 ea 08/23/24 Unknown Rx oral packet insulin pump cart,auto,BT,G6/7 #45 ea 09/25/24 Unknown Rx (Omnipod 5 G6-G7 Pods (Gen 5) subcutaneous cartridge) Allergy/AdvReac Type Severity Reaction Status Date / Time LONG Inhibitors Allergy Angioedema Verified 10/05/24 10:59 adhesive Allergy Rash Verified 10/05/24 10:59 lisinopril Allergy Angioedema Verified 10/05/24 10:59 Sulfa (Sulfonamide Allergy Rash Verified 10/05/24 10:59 Antibiotics) sulfamethoxazole (From Allergy Rash Verified 10/05/24 10:59 Bactrim) trimethoprim (From Bactrim) Allergy Rash Verified 10/05/24 10:59 tuberculin, purified protein Allergy Unknown Verified 08/22/24 18:00 deriva Family History Mother Hypertension Kidney disease ALS (amyotrophic lateral sclerosis) Father Heart disease Hypertension Kidney disease Diabetes Brother Melanoma Surgical History (Updated 08/31/24 @ 00:01 by Noah Zamorano) Status post kidney transplant Tricuspid valve replaced Transplant recipient History of dilation and curettage History of biopsy History of right hip replacement Hx of right heart catheterization Kidney transplant recipient Hip replacement planned History of left heart catheterization (03/08/20) revision of right hip arthroplasty (05/10/19) port removed Status post carpal tunnel release Status post total hip replacement, bilateral S/P lymph node biopsy S/P colonoscopy History of esophagogastroduodenoscopy (EGD) S/P nasal polypectomy Social History household members: family housing: house Smoking Status: Never smoker alcohol intake: never substance use type: does not use caffeine: No what type of physical activity do you participate in: other details: PT seatbelt use: always do you feel safe at home: Yes additional social history: Single ROS Constitutional Constitutional: Reports poor appetite and weakness; Denies daytime sleepiness, fatigue, frequent falls or increased appetite Eyes Eyes: Denies blindness, bloody eye, blurry vision, change in eye color, discharge from eye(s) or excessive blinking ENT HEENT: Denies bleeding gums, dental pain, dizziness, dysphagia, epistaxis, halitosis, headache(s) or lip swelling Cardiovascular Cardiovascular: Denies abdominal bloating, abdominal pain, bluish discoloration of hand/feet, chest pain at rest or diaphoresis Respiratory/Chest Respiratory/Chest: Denies chest congestion, chest tightness, difficulty clearing secretions, dusky skin, excessive phlegm production or hemoptysis Gastrointestinal Gastrointestinal: Denies belching, bloating, chewing difficulty, coffee ground emesis, cramping or dry heaves Genitourinary Genitourinary: Reports abdominal discomfort; Denies burning urination, difficulty urinating, hematuria or itching Musculoskeletal Musculoskeletal: Denies deformity, joint swelling, muscle spasms, muscle weakness, tingling or tremors Integumentary Integumentary: Reports skin ulcer; Denies bleeding lesions, erythema, furuncle, hirsutism or jaundice Neurologic Neurologic: Denies abnormal hearing, abnormal speech, behavior changes, burning sensations, confusion or convulsions Psychiatric Psychiatric: Reports change in appetite; Denies auditory hallucinations, behavioral changes, hallucinations, homicidal ideation or memory loss Endocrine Endocrinology: Denies deepening of the voice, excessive sweating, fatigue, heat intolerance or increase in ring/shoe/hat size Hematologic/Lymphatic Hematologic/Lymphatic: Denies easy bleeding or easy bruising Allergic/Immunologic Allergic/Immunologic: Denies itchy eyes, lip swelling, throat swelling, tongue swelling, hives or wheezing Vital Signs Vital Signs Vital Signs: 10/05/24 11:02 Temperature 97.7 F L Temperature Source Temporal Pulse Rate 81 Respiratory Rate 18 Blood Pressure 97/57 L Blood Pressure Mean 70 Blood Pressure Source Monitor Blood Pressure Position Sitting Blood Pressure Location Left Arm Oxygen Delivery Method Room Air Physical Exam Const alert, oriented x3 and no apparent distress General Appearance: cooperative and comfortable HEENT normocephalic and head/scalp atraumatic Eyes EOMs intact bilaterally Neck full ROM General: normal visual inspection Resp normal respiratory effort and normal air movement Effort and Inspection: able to speak in complete sentences Cardio regular rate, regular rhythm, S1 normal heart sound and S2 normal heart sound GI soft to palpation Extremity no pedal edema Skin Wounds: wounds noted size Size: See clinical note, bed with slough, margins well approximated, no odor and open Neuro oriented x3, CN's II-XII intact bilaterally and moves all extremities Psych mental status grossly normal, thought process normal, cooperative and affect normal Debridement Note Debridement Note Wound debrided: Left buttock Wound Grade/Stage: Stage III Type of Debridement: Excisional debridement Anesthesia Used: 5% Lidocaine Gel Depth: Down to and including healthy tissue and in the subcutaneous layer Percentage of wound debrided: 100 Instrument Used: 3mm curette Tissue Removed: Slough and devitalized tissue Severity: Fat Layer Exposed Amount of bleeding with debridement: Mild Bleeding Controlled with: Pressure Patient tolerated procedure: Patient tolerated procedure well Post-Debridement Measurements and Additional Note: Post-Debridement Measurements/Treatment MARISEL - Nurse 1 - General Ulcer Assessment Start: 10/05/24 11:01 Freq: Status: Active Protocol: MARIPOSA Activity Type Activity Date Activity User E-sign Co-sign Detail Recorded Client Recorded Date Recorded By Document 10/05/24 11:02 ZACHARY [id number] 10/05/24 11:11 ZACHARY 10/05/24 11:02 - Today's Visit Information Type of service Initial Visit Arrival Mode Ambulatory Patient Identification Verified (Name & Yes ) Vital Signs Temperature (97.8 F-99.1 F) 97.7 F L Temperature Source Temporal Pulse Rate (60-100) 81 Pulse Location Monitor Respiratory Rate (12-18) 18 Respiratory rate source Observation Oxygen Delivery Method Room Air Blood Pressure (90/60-120/80) 97/57 L Blood Pressure Mean 70 Source Monitor Position Sitting Blood Pressure Location Left Arm History Since Last Visit- (Skip if this is Patient's initial visit) Have you changed medications since your No last visit? Any new allergies or adverse reactions No Had a fall/change in ADL's that may No increase risk of falls Signs or symptoms of abuse and/or No neglect since last visit Have you been in the hospital since your No last visit? Has dressing in place as prescribed Yes Has compression in place as prescribed N/A Has offloadiing in place as prescribed N/A Experienced any changes in pain level or No management Left Footwear Regular Shoe Right Footwear Regular Shoe Pain Scale: 0-10 Numeric Is Patient Pain Free? Yes WC - Nurse 1 - General Ulcer Measurement Start: 10/05/24 11:01 Freq: Status: Active Protocol: Activity Type Activity Date Activity User E-sign Co-sign Detail Recorded Client Recorded Date Recorded By Document 10/05/24 11:02 KW [id number] 10/05/24 11:11 KW 10/05/24 11:02 Wound Center Nurse 1 #4 R Buttock -Current Size (cm) - Length 0.6 -Current Size (cm) - Width 0.4 -Current Size (cm) - Depth 0.1 -Total Square Cm 0.24 -Date of Last Picture (Recall this 10/05/24 field) -Exudate Amt Small -Exudate Type Serosanguineous -Wound Margin Distinct, Outline Attached -Granulation Amt Small (1-33%) -Granulation Quality [place] -Necrosis Amt Large (67-100%) -Necrotic Tissue Type Adherent Slough -Texture (Dalila-wound Skin Appearance) Assessed -Moisture (Dalila-wound Skin Appearance) Assessed -Color (Dalila-wound Skin Appearance) Assessed -Temperature ([place]alila-wound Skin No Abnormality Appearance) (Pt Warm) -Tenderness on Palpation (Dalila-wound No Skin Appearance) -Ulcer Cleansing Rinsed/ Irrigated with Saline -Foul Odor after Cleansing No -Anesthetic Used 5% Lidocaine Gel #3 lt Buttock -Current Size (cm) - Length 0.5 -Current Size (cm) - Width 0.5 -Current Size (cm) - Depth 0.1 -Total Square Cm 0.25 -Date of Last Picture (Recall this 10/05/24 field) -Exudate Amt Small -Exudate Type Serosanguineous -Wound Margin Distinct, Outline Attached -Granulation Amt Small (1-33%) -Granulation Quality [place] -Necrosis Amt Large (67-100%) -Necrotic Tissue Type Adherent Slough -Texture (Dalila-wound Skin Appearance) Assessed -Moisture (Dalila-wound Skin Appearance) Assessed -Color (Dalila-wound Skin Appearance) Assessed -Temperature (Dalila-wound Skin No Abnormality Appearance) (Pt Warm) -Tenderness on Palpation (Dalila-wound No Skin Appearance) -Ulcer Cleansing Rinsed/ Irrigated with Saline -Foul Odor after Cleansing No -Anesthetic Used 5% Lidocaine Gel #2 lt lower abd inf -Current Size (cm) - Length 0.9 -Current Size (cm) - Width 3 -Current Size (cm) - Depth 2.5 -Total Square Cm 2.7 -Date of Last Picture (Recall this 10/05/24 field) -Exudate Amt Medium -Exudate Type Serosanguineous -Wound Margin Distinct, Outline Attached -Granulation Amt Small (1-33%) -Granulation Quality [place] -Necrosis Amt Large (67-100%) -Necrotic Tissue Type Adherent Slough -Texture (Dalila-wound Skin Appearance) Assessed -Moisture (Dalial-wound Skin Appearance) Assessed -Color (Dalila-wound Skin Appearance) Assessed -Temperature ([place]alila-wound Skin No Abnormality Appearance) (Pt Warm) -Tenderness on Palpation (Dalila-wound No Skin Appearance) -Ulcer Cleansing Rinsed/ Irrigated with Saline -Foul Odor after Cleansing No -Anesthetic Used 5% Lidocaine Gel #1 lt lower abd sup -Current Size (cm) - Length 0.3 -Current Size (cm) - Width 1.5 -Current Size (cm) - Depth 0.2 -Total Square Cm 0.45 -Date of Last Picture (Recall this 10/05/24 field) -Exudate Amt Small -Exudate Type Serosanguineous -Wound Margin Distinct, Outline Attached -Granulation Amt Small (1-33%) -Granulation Quality [place] -Necrosis Amt Large (67-100%) -Necrotic Tissue Type Adherent Slough -Texture (Dalila-wound Skin Appearance) Assessed -Moisture (Dalila-wound Skin Appearance) Assessed -Color (Dalila-wound Skin Appearance) Assessed -Temperature (Dalila-wound Skin No Abnormality Appearance) (Pt Warm) -Tenderness on Palpation (Dalila-wound No Skin Appearance) -Ulcer Cleansing Rinsed/ Irrigated with Saline -Foul Odor after Cleansing No -Anesthetic Used 5% Lidocaine Gel WC - Nurse 2 - General Ulcer CM Notes Start: 10/05/24 11:01 Freq: Status: Active Protocol: Activity Type Activity Date Activity User E-sign Co-sign Detail Recorded Client Recorded Date Recorded By Document 10/05/24 11:31 [id number] 10/05/24 11:41 10/05/24 11:31 Wound Center Nurse 2 #4 R Buttock -Time 11:38 -Correct Patient Yes -Correct Side, Site, Position Yes -Correct Procedure Yes -Procedure Performed Yes -Type of Procedure Debridement -Clinical Debridement Subcutaneous -Tissue Removed Subcutaneous -Post Debridement (cm) - Length 0.8 -Post Debridement (cm) - Width 0.4 -Post Debridement (cm) - Depth 0.1 -Total Square (Post) (cm) 0.32 -Area of Debridement (cm) - Length 0.8 -Area of Debridement (cm) - Width 0.4 -Total Square (Area) (cm) 0.32 -Tunneling No -Undermining/Tunneling No -Circular Undermining No -Wound/Ulcer Outcome Not Healed -Ulcer Cleansing Rinsed/ Irrigated with Saline -Foul Odor after Cleansing No -Bioengineered Tissue No -Bleeding Controlled with Pressure -Treatment Response Procedure Tolerated Well -Debridement - Subq, 1st 20sq cm No #3 lt Buttock -Time 11:39 -Correct Patient Yes -Correct Side, Site, Position Yes -Correct Procedure Yes -Procedure Performed Yes -Type of Procedure Debridement -Clinical Debridement Subcutaneous -Tissue Removed Subcutaneous -Post Debridement (cm) - Length 0.9 -Post Debridement (cm) - Width 0.4 -Post Debridement (cm) - Depth 0.1 -Total Square (Post) (cm) 0.36 -Area of Debridement (cm) - Length 0.9 -Area of Debridement (cm) - Width 0.4 -Total Square (Area) (cm) 0.36 -Tunneling No -Undermining/Tunneling No -Circular Undermining No -Wound/Ulcer Outcome Not Healed -Ulcer Cleansing Rinsed/ Irrigated with Saline -Foul Odor after Cleansing No -Bioengineered Tissue No -Bleeding Controlled with Pressure -Treatment Response Procedure Tolerated Well -Offloading No -Debridement - Subq, 1st 20sq cm Yes Pain Scale: 0-10 Numeric Is Patient Pain Free? Yes WC - Nurse 3 - General Ulcer D/C NN Start: 10/05/24 11:01 Freq: Status: Active Protocol: Activity Type Activity Date Activity User E-sign Co-sign Detail Recorded Client Recorded Date Recorded By Document 10/05/24 11:46 KW [id number] 10/05/24 11:48 KW 10/05/24 11:46 Wound Care Center Nurse 3 #4 R Buttock -Primary Dressing Applied Promogran, Sacral Foam Border -Promogran 1 -Sacral Foam Border 1 #3 lt Buttock -Other Dressing promogran with sacral foam #2 lt lower abd inf -Primary Dressing Applied Silicone Border Foam 4x4 -Silicone Border Foam 4x4 1 -Wound Comment(s) to see surgeon #1 lt lower abd sup -Primary Dressing Applied Silicone Border Foam 4x4 -Silicone Border Foam 4x4 1 Pain Scale: 0-10 Numeric Is Patient Pain Free? Yes WC - Visit Discharge Discharge Condition Stable Ambulatory Status Ambulatory Transportation Private Auto Medication Reconcilliation completed & No provided to patient/care provider Clinical Summary of Care Provided Yes Additional Wound Wound debrided: Right buttock Wound Grade/Stage: Stage III Type of Debridement: Excisional debridement Anesthesia Used: 5% Lidocaine Gel Depth: Down to and including healthy tissue and in the subcutaneous layer Percentage of wound debrided: 100 Instrument Used: 3mm curette Tissue Removed: Slough and devitalized tissue Severity: Fat Layer Exposed Amount of bleeding with debridement: Mild Bleeding Controlled with: Pressure Patient tolerated procedure: Patient tolerated procedure well Charges/Coding Visit Charges Office Visits / Consults: 14230 OV L3 New 30min Procedures Integumentary [id number]: [id number] Sofia subq tissue 20 sq cm/< Assessment/Plan Assessment/Plan (1) Decubitus ulcer of left buttock, stage 3: CODE(S): L89.323 - Pressure ulcer of left buttock, stage 3 (2) Decubitus ulcer of right buttock, stage 3: CODE(S): L89.313 - Pressure ulcer of right buttock, stage 3 (3) SLE (systemic lupus erythematosus): CODE(S): M32.9 - Systemic lupus erythematosus, unspecified (4) Chronic steroid use: (5) CHF with right heart failure: CODE(S): I50.810 - Right heart failure, unspecified (6) Immunosuppression due to drug therapy: CODE(S): D84.821 - Immunodeficiency due to drugs; Z79.899 - Other emt intermediate (current) drug therapy (7) Debility: CODE(S): R53.81 - Other malaise (8) History of renal cell cancer: CODE(S): Z85.528 - Personal history of other malignant neoplasm of kidney (9) Insulin dependent diabetes mellitus: PLAN: Plan Debridement done as documented above, procedure was well-tolerated. Significant debility. Some of her chronic medical conditions as listed above. Status post recent total left nephrectomy due to renal cancer. Nonhealing surgical wound present which she states that she has been cleaning with alcohol. Yet to be seen by her primary surgeon, still within the global postop. She was advised to schedule with her primary surgeon, this wound as above was not addressed. Bilateral buttock ulcers as a consequence of being largely bed bound following her surgery. Small size. She states that she is able to offload and is not open to a hospital bed at this time. No concerns for infection. Promogran daily, cover with foam dressing. Change more often if needed. Christ twice daily discussed. Most recent A1c was at 6.1, continue optimal diabetes control. Continue other chronic management. Given her comorbidities including long-term steroid and immunosuppressive medication, she is at risk for wound breakdown and delayed healing. Follow-up in a week or sooner if needed. She was advised to call with any questions or concerns. This note was generated with [employer] dictation software. It may contain incorrect words, spelling, and punctuation that were not noted in checking the note before signing.
--- NOTE | 2024-10-06 14:15 | WC ---
PHOTO 10/05/24 LEFT LOWER ABD
--- NOTE | 2024-10-06 14:17 | WC ---
PHOTO SACRAL 10/05/24
== END 2024-10-13 23:59 | disposition home or self-care (01) ==
LOC: WC 10:20
PROVIDERS: PCP Family Medicine Geriatric Medicine; Referring Provider Family Medicine Geriatric Medicine; Visit Provider Internal Medicine
DX: L89.313 Pressure ulcer of right buttock, stage 3 (principal); L89.323 Pressure ulcer of left buttock, stage 3; N18.4 Chronic kidney disease, stage 4 (severe); I13.0 Hypertensive heart and chronic kidney disease with heart failure and stage 1 through stage 4 chronic kidney disease, or unspecified chronic kidney disease; I50.810 Right heart failure, unspecified; M32.9 Systemic lupus erythematosus, unspecified; Z79.4 Long term (current) use of insulin; E11.42 Type 2 diabetes mellitus with diabetic polyneuropathy; E11.22 Type 2 diabetes mellitus with diabetic chronic kidney disease; Z79.01 Long term (current) use of anticoagulants; R53.81 Other malaise; Z79.84 Long term (current) use of oral hypoglycemic drugs; Z79.82 Long term (current) use of aspirin; T81.89XA Other complications of procedures, not elsewhere classified, initial encounter; D84.821 Immunodeficiency due to drugs; Z79.899 Other long term (current) drug therapy
CPT/HCPCS: 11042; 99213; 99214; G0463

== ENCOUNTER 2024-10-26 09:37 | Outpatient (RCR) | payer MEDICARE, MEDICAID, SELFPAY ==
[2024-07-19 10:16] VITALS: BMI 31.2
[2024-10-14 01:24] VITALS: BP 97/57; PULSE 81; RESP 18; TEMP 36.5
[2024-10-26 09:50] VITALS: BP 127/80; PULSE 91; RESP 16; TEMP 36.7
--- NOTE | 2024-10-26 11:22 | PN.PCM_ITS ---
History of Present Illness Date of Service: 10/26/24 Chief Complaint: Bilateral Buttock Ulcers. Foot ulcer History of Wound: Miss Plummer is a 54 yo who was referred to the wound center by her PCP due to bilateral buttock ulcers. She also presents with an abdominal nonhealing wound. Had a left total nephrectomy due to renal cancer less than a month ago at the [facility]. She has not seen her primary surgeon who had advised that she come in for this. This wound was not addressed. Bilateral buttock ulcers said to have started a week ago. Following her surgery, had been largely bedbound and not moving as much. She states that this has changed, able to move and reposition better. Has not really done anything to the buttock ulcers. Has home health coming 2 times a week. History of diabetes mellitus, last A1c said to be 6.1. Also history of lupus and renal transplant. She admits to a poor appetite. 10/26/24: Ms. Plummer presents with a new area of opening/ulcer between her right fourth and fifth toe. She states that there was a callus which she pulled on and subsequently developed that area of opening. History of diabetes mellitus type 2, follows up with podiatry and her last visit was 4 to 6 months ago. Has not really done anything to the area. She Progress of Wound: Prior bilateral buttock ulcers are healed. Reports some discomfort when she sits on it. New area of opening as discussed above. Objective Data Objective Data Vital Signs: Vital Signs Temp Pulse Resp BP O2 Del Method 98.0 F 91 16 127/80 H Room Air 10/26/24 09:50 10/26/24 09:50 10/26/24 09:50 10/26/24 09:50 10/26/24 09:50 Oxygen Delivery Method Room Air Physical Exam Const alert, oriented x3 and no apparent distress General Appearance: cooperative and comfortable HEENT normocephalic and head/scalp atraumatic Eyes EOMs intact bilaterally Neck full ROM General: normal visual inspection Resp normal respiratory effort and normal air movement Extremity no pedal edema Skin Wounds: wounds noted size Size: See clinical note, bed with slough, margins well approximated, no odor and open Neuro oriented x3, CN's II-XII intact bilaterally and moves all extremities Psych mental status grossly normal, thought process normal, cooperative and affect normal Debridement Note Debridement Note Wound debrided: Right foot/webspace Wound Grade/Stage: Coates stage II Type of Debridement: Excisional debridement Anesthesia Used: 5% Lidocaine Gel Depth: Down to and including healthy tissue and in the subcutaneous layer Percentage of wound debrided: 100 Instrument Used: 3mm curette Tissue Removed: Slough and devitalized tissue Severity: Fat Layer Exposed Amount of bleeding with debridement: Mild Bleeding Controlled with: Pressure Patient tolerated procedure: Patient tolerated procedure well Post-Debridement Measurements and Additional Note: Post-Debridement Measurements/Treatment - Nurse 1 - General Ulcer Assessment Start: 10/26/24 09:50 Freq: Status: Active Protocol: MARIPOSA Activity Type Activity Date Activity User E-sign Co-sign Detail Recorded Client Recorded Date Recorded By Document 10/26/24 09:50 ZACHARY [id number] 10/26/24 10:02 10/26/24 09:50 MARISEL - Today's Visit Information Type of service Follow-up Visit (Physician/OFFICE EQUIPMENT TECHNICIAN ) Arrival Mode Ambulatory Patient Identification Verified (Name & Yes ) Vital Signs Temperature (97.8 F-99.1 F) 98.0 F Temperature Source Temporal Pulse Rate (60-100) 91 Pulse Location Monitor Respiratory Rate (12-18) 16 Respiratory rate source Observation Oxygen Delivery Method Room Air Blood Pressure (90/60-120/80) 127/80 H Blood Pressure Mean (mm Hg) 95 Source Monitor Position Sitting Blood Pressure Location Right Arm History Since Last Visit- (Skip if this is Patient's initial visit) Have you changed medications since your No last visit? Any new allergies or adverse reactions No Had a fall/change in ADL's that may No increase risk of falls Signs or symptoms of abuse and/or No neglect since last visit Have you been in the hospital since your No last visit? Has dressing in place as prescribed Yes Has compression in place as prescribed N/A Has offloadiing in place as prescribed N/A Experienced any changes in pain level or No management Left Footwear Regular Shoe Right Footwear Regular Shoe Pain Scale: 0-10 Numeric Is Patient Pain Free? Yes - Nurse 1 - General Ulcer Measurement Start: 10/26/24 09:50 Freq: Status: Active Protocol: Activity Type Activity Date Activity User E-sign Co-sign Detail Recorded Client Recorded Date Recorded By Document 10/26/24 09:50 ZACHARY [id number] 10/26/24 10:02 KW 10/26/24 09:50 Wound Center Nurse 1 #5 RT 4TH AND 5TH TOE SPACE -Current Size (cm) - Length 0.4 -Current Size (cm) - Width 0.5 -Current Size (cm) - Depth 0.3 -Total Square Cm 0.20 -Date of Last Picture (Recall this 10/26/24 field) -Exudate Amt Small -Exudate Type Serosanguineous -Wound Margin Distinct, Outline Attached -Granulation Amt Small (1-33%) -Granulation Quality [place] -Necrosis Amt Large (67-100%) -Necrotic Tissue Type Adherent Slough -Texture (Dalila-wound Skin Appearance) Assessed -Moisture (Dalila-wound Skin Appearance) Assessed -Color (Dalila-wound Skin Appearance) Assessed -Temperature (Dalila-wound Skin No Abnormality Appearance) (Pt Warm) -Tenderness on Palpation (Dalila-wound No Skin Appearance) -Ulcer Cleansing Rinsed/ Irrigated with Saline -Foul Odor after Cleansing No -Anesthetic Used 5% Lidocaine Gel #4 R Buttock -Current Size (cm) - Length 0.1 -Current Size (cm) - Width 0.1 -Current Size (cm) - Depth 0 -Total Square Cm 0.01 -Exudate Amt None Present -Texture (Dalila-wound Skin Appearance) Assessed -Moisture (Dalila-wound Skin Appearance) Assessed -Color (Dalila-wound Skin Appearance) Assessed -Temperature (Dalila-wound Skin No Abnormality Appearance) (Pt Warm) -Ulcer Cleansing Rinsed/ Irrigated with Saline -Foul Odor after Cleansing No -Anesthetic Used 5% Lidocaine Gel #3 lt Buttock -Current Size (cm) - Length 0.1 -Current Size (cm) - Width 0.1 -Current Size (cm) - Depth 0 -Total Square Cm 0.01 -Exudate Amt None Present -Texture (Dalila-wound Skin Appearance) Assessed -Moisture (Dalila-wound Skin Appearance) Assessed -Color (Dalila-wound Skin Appearance) Assessed -Temperature (Dalila-wound Skin No Abnormality Appearance) (Pt Warm) -Tenderness on Palpation (Dalila-wound No Skin Appearance) -Ulcer Cleansing Rinsed/ Irrigated with Saline -Foul Odor after Cleansing No WC - Nurse 2 - General Ulcer CM Notes Start: 10/26/24 09:50 Freq: Status: Active Protocol: Activity Type Activity Date Activity User E-sign Co-sign Detail Recorded Client Recorded Date Recorded By Document 10/26/24 10:09 GM [id number] 10/26/24 10:14 GM 10/26/24 10:09 Wound Center Nurse 2 #5 RT 4TH AND 5TH TOE SPACE -Time 10:09 -Correct Patient Yes -Correct Side, Site, Position Yes -Correct Procedure Yes -Procedure Performed Yes -Type of Procedure Debridement -Clinical Debridement Subcutaneous -Tissue Removed Subcutaneous -Post Debridement (cm) - Length 0.7 -Post Debridement (cm) - Width 0.5 -Post Debridement (cm) - Depth 0.2 -Total Square (Post) (cm) 0.35 -Area of Debridement (cm) - Length 0.7 -Area of Debridement (cm) - Width 0.5 -Total Square (Area) (cm) 0.35 -Tunneling No -Undermining/Tunneling No -Circular Undermining No -Wound/Ulcer Outcome Not Healed -Ulcer Cleansing Rinsed/ Irrigated with Saline -Foul Odor after Cleansing No -Bioengineered Tissue No -Bleeding Controlled with Pressure -Treatment Response Procedure Tolerated Well -Debridement - Subq, 1st 20sq cm Yes #4 R Buttock -Time 10:10 -Correct Patient Yes -Correct Side, Site, Position Yes -Correct Procedure No -Procedure Performed No -Tunneling No -Undermining/Tunneling No -Circular Undermining No -Wound/Ulcer Outcome Healed- Epithelialized -Ulcer Cleansing Not Cleansed -Foul Odor after Cleansing No -Bioengineered Tissue No -Bleeding Controlled with NA #3 lt Buttock -Time 10:11 -Correct Patient Yes -Correct Side, Site, Position Yes -Correct Procedure No -Procedure Performed No -Tunneling No -Undermining/Tunneling No -Circular Undermining No -Wound/Ulcer Outcome Healed- Epithelialized -Ulcer Cleansing Not Cleansed -Foul Odor after Cleansing No -Bioengineered Tissue No -Bleeding Controlled with NA -Offloading No Pain Scale: 0-10 Numeric Is Patient Pain Free? Yes WC - Nurse 3 - General Ulcer D/C NN Start: 10/26/24 09:50 Freq: Status: Active Protocol: Activity Type Activity Date Activity User E-sign Co-sign Detail Recorded Client Recorded Date Recorded By Document 10/26/24 10:22 ML [id number] 10/26/24 10:32 ML 10/26/24 10:22 Wound Care Center Nurse 3 #5 RT 4TH AND 5TH TOE SPACE -Ulcer Cleansing Rinsed/ Irrigated with Saline -Primary Dressing Applied Promogran -Primary Dressing Covered/Secured with Dry Gauze & Roll Gauze, Secured with Tape -Promogran 1 -Promogran Nel Matter 0 #4 R Buttock -Ulcer Cleansing Rinsed/ Irrigated with Saline -Primary Dressing Applied Sacral Foam Border -Sacral Foam Border 1 Pain Scale: 0-10 Numeric Is Patient Pain Free? Yes Assessment/Plan Assessment/Plan (1) Diabetic foot ulcer associated with diabetes mellitus due to underlying condition: CODE(S): E08.621 - Diabetes mellitus due to underlying condition with foot ulcer; L97.509 - Non-pressure chronic ulcer of other part of unspecified foot with unspecified severity PLAN: Coates stage II. (2) Decubitus ulcer of left buttock, stage 3: CODE(S): L89.323 - Pressure ulcer of left buttock, stage 3 (3) Decubitus ulcer of right buttock, stage 3: CODE(S): L89.313 - Pressure ulcer of right buttock, stage 3 (4) SLE (systemic lupus erythematosus): CODE(S): M32.9 - Systemic lupus erythematosus, unspecified (5) Chronic steroid use: (6) CHF with right heart failure: CODE(S): I50.810 - Right heart failure, unspecified (7) Immunosuppression due to drug therapy: CODE(S): D84.821 - Immunodeficiency due to drugs; Z79.899 - Other alf (current) drug therapy (8) Debility: CODE(S): R53.81 - Other malaise (9) History of renal cell cancer: CODE(S): Z85.528 - Personal history of other malignant neoplasm of kidney (10) Insulin dependent diabetes mellitus: PLAN: Plan Debridement done as documented above, procedure was well-tolerated. Significant debility. Some of her chronic medical conditions as listed above. Status post recent total left nephrectomy due to renal cancer. Nonhealing surgical wound present which she states that she has been cleaning with alcohol. Yet to be seen by her primary surgeon, still within the global postop. She was advised to schedule with her primary surgeon, this wound as above was not addressed. Bilateral buttock ulcers as a consequence of being largely bed bound following her surgery. Small size. She states that she is able to offload and is not open to a hospital bed at this time. No concerns for infection. Promogran daily, cover with foam dressing. Change more often if needed. Christ twice daily discussed. Most recent A1c was at 6.1, continue optimal diabetes control. Continue other chronic management. Given her comorbidities including long-term steroid and immunosuppressive medication, she is at risk for wound breakdown and delayed healing. Follow-up in a week or sooner if needed. She was advised to call with any questions or concerns. This note was generated with [employer] dictation software. It may contain incorrect words, spelling, and punctuation that were not noted in checking the note before signing.
--- NOTE | 2024-10-27 09:30 | WC ---
PHOTO 10/26/24 WEBSPACE BETWEEN 4TH AND 5TH TOE
== END 2024-11-10 23:59 | disposition home or self-care (01) ==
LOC: WC 09:37
PROVIDERS: PCP Family Medicine Geriatric Medicine; Referring Provider Family Medicine Geriatric Medicine; Visit Provider Internal Medicine
DX: L89.323 Pressure ulcer of left buttock, stage 3 (principal); L89.313 Pressure ulcer of right buttock, stage 3; E11.622 Type 2 diabetes mellitus with other skin ulcer; L97.509 Non-pressure chronic ulcer of other part of unspecified foot with unspecified severity; I50.810 Right heart failure, unspecified; M32.9 Systemic lupus erythematosus, unspecified; Z79.4 Long term (current) use of insulin; D84.821 Immunodeficiency due to drugs; R53.81 Other malaise; Z85.828 Personal history of other malignant neoplasm of skin; Z90.5 Acquired absence of kidney
CPT/HCPCS: 11042

== ENCOUNTER 2024-11-30 10:00 | Outpatient (RCR) | payer MEDICARE, MEDICAID, SELFPAY ==
[2024-07-19 10:16] VITALS: BMI 31.2
[2024-11-11 00:56] VITALS: BP 127/80; PULSE 91; RESP 16; TEMP 36.7
[2024-11-16 09:47] VITALS: BP 127/86; PULSE 85; RESP 16; TEMP 36.1
--- NOTE | 2024-11-16 12:39 | PCM.WC.PN ---
History of Present Illness Date of Service: 11/16/24 Chief Complaint: Bilateral Buttock Ulcers. Foot ulcer History of Wound: Miss Plummer is a 54 yo who was referred to the wound center by her PCP due to bilateral buttock ulcers. She also presents with an abdominal nonhealing wound. Had a left total nephrectomy due to renal cancer less than a month ago at the [facility]. She has not seen her primary surgeon who had advised that she come in for this. This wound was not addressed. Bilateral buttock ulcers said to have started a week ago. Following her surgery, had been largely bedbound and not moving as much. She states that this has changed, able to move and reposition better. Has not really done anything to the buttock ulcers. Has home health coming 2 times a week. History of diabetes mellitus, last A1c said to be 6.1. Also history of lupus and renal transplant. She admits to a poor appetite. 10/26/24: Ms. Plummer presents with a new area of opening/ulcer between her right fourth and fifth toe. She states that there was a callus which she pulled on and subsequently developed that area of opening. History of diabetes mellitus type 2, follows up with podiatry and her last visit was 4 to 6 months ago. Has not really done anything to the area. Progress of Wound: No acute concerns at this time. Buttock ulcer stays healed. Foot Ulcer also with no acute concerns. Objective Data Objective Data Vital Signs: Vital Signs Temp Pulse Resp BP O2 Del Method 97 F L 85 16 127/86 H Room Air 11/16/24 09:47 11/16/24 09:47 11/16/24 09:47 11/16/24 09:47 11/16/24 09:47 Oxygen Delivery Method Room Air Charges/Coding Procedures Integumentary 111xxx-113xx: 94800 Sofia subq tissue 20 sq cm/< Physical Exam Const alert, oriented x3 and no apparent distress General Appearance: cooperative and comfortable HEENT normocephalic and head/scalp atraumatic Eyes EOMs intact bilaterally Neck full ROM General: normal visual inspection Resp normal respiratory effort and normal air movement Extremity no pedal edema Skin Wounds: wounds noted size Size: See clinical note, bed granulating well, margins well approximated, no odor and open Neuro oriented x3, CN's II-XII intact bilaterally and moves all extremities Psych mental status grossly normal, thought process normal, cooperative and affect normal Debridement Note Debridement Note Wound debrided: Right Foot ( 4th-5th Webspace ) Type of Debridement: Excisional debridement Anesthesia Used: 5% Lidocaine Gel Depth: Down to and including healthy tissue and in the subcutaneous layer Percentage of wound debrided: 100 Instrument Used: 3mm curette Tissue Removed: Slough and devitalized tissue Severity: Fat Layer Exposed Amount of bleeding with debridement: Mild Bleeding Controlled with: Pressure Patient tolerated procedure: Patient tolerated procedure well Post-Debridement Measurements and Additional Note: Post-Debridement Measurements/Treatment - Nurse 1 - General Ulcer Assessment Start: 11/16/24 09:47 Freq: Status: Active Protocol: MARIPOSA Activity Type Activity Date Activity User E-sign Co-sign Detail Recorded Client Recorded Date Recorded By Document 11/16/24 09:47 CP [id number] 11/16/24 09:52 CP 11/16/24 09:47 WC - Today's Visit Information Type of service Follow-up Visit (Physician/DEAN OF INSTRUCTION ) Arrival Mode Ambulatory Patient Identification Verified (Name & Yes ) Patient Requires Transmission-Based No Precautions Safety Precautions NA Vital Signs Temperature (97.8 F-99.1 F) 97 F L Temperature Source Temporal Pulse Rate (60-100) 85 Pulse Location Monitor Respiratory Rate (12-18) 16 Respiratory rate source Observation Oxygen Delivery Method Room Air Blood Pressure (90/60-120/80) 127/86 H Blood Pressure Mean (mm Hg) 99 Source Monitor Position Sitting Blood Pressure Location Left Arm History Since Last Visit- (Skip if this is Patient's initial visit) Have you changed medications since your Yes last visit? Any new allergies or adverse reactions No Had a fall/change in ADL's that may No increase risk of falls Signs or symptoms of abuse and/or No neglect since last visit Have you been in the hospital since your No last visit? Has dressing in place as prescribed Yes Has compression in place as prescribed N/A Has offloadiing in place as prescribed Yes Right Footwear Regular Shoe Pain Scale: 0-10 Numeric Is Patient Pain Free? Yes [place] Nurse 1 - General Ulcer Measurement Start: 11/16/24 09:47 Freq: Status: Active Protocol: Activity Type Activity Date Activity User E-sign Co-sign Detail Recorded Client Recorded Date Recorded By Document 11/16/24 09:47 CP [id number] 11/16/24 09:52 CP 11/16/24 09:47 Wound Center Nurse 1 #5 RT 4TH AND 5TH TOE SPACE -Current Size (cm) - Length 0.9 -Current Size (cm) - Width 0.3 -Current Size (cm) - Depth 0.2 -Total Square Cm 0.27 -Exudate Amt Small -Exudate Type Sanguineous -Granulation Amt None Present (0 %) -Slough/Fibrin No -Necrosis Amt None Present (0 %) -Structure Exposed N/A -Texture (Dalila-wound Skin Appearance) Callus -Moisture (Dalila-wound Skin Appearance) Maceration -Color (Dalila-wound Skin Appearance) No Abnormality -Temperature (Dalila-wound Skin No Abnormality Appearance) (Pt Warm) -Tenderness on Palpation (Dalila-wound No Skin Appearance) -Ulcer Cleansing Soap and Water -Foul Odor after Cleansing No -Anesthetic Used 5% Lidocaine Gel #4 R Buttock -Current Size (cm) - Length 0.1 -Current Size (cm) - Width 0.1 -Current Size (cm) - Depth 0.1 -Total Square Cm 0.01 -Epithelialization Large 67-100% -Exudate Amt None Present -Structure Exposed N/A -Texture (Dalila-wound Skin Appearance) No Abnormality -Moisture (Dalila-wound Skin Appearance) No Abnormality -Color (Dalila-wound Skin Appearance) No Abnormality -Temperature (Dalila-wound Skin No Abnormality Appearance) (Pt Warm) -Tenderness on Palpation (Dalila-wound No Skin Appearance) -Ulcer Cleansing Soap and Water -Foul Odor after Cleansing No #3 lt Buttock -Current Size (cm) - Length 0 -Current Size (cm) - Width 0 -Current Size (cm) - Depth 0 -Total Square Cm 0 WC - Nurse 2 - General Ulcer CM Notes Start: 11/16/24 09:47 Freq: Status: Active Protocol: Activity Type Activity Date Activity User E-sign Co-sign Detail Recorded Client Recorded Date Recorded By Document 11/16/24 10:14 [id number] 11/16/24 10:17 11/16/24 10:14 Wound Center Nurse 2 #5 RT 4TH AND 5TH TOE SPACE -Time 10:14 -Correct Patient Yes -Correct Side, Site, Position Yes -Correct Procedure Yes -Procedure Performed Yes -Type of Procedure Debridement -Clinical Debridement Subcutaneous -Tissue Removed Subcutaneous -Post Debridement (cm) - Length 0.8 -Post Debridement (cm) - Width 0.4 -Post Debridement (cm) - Depth 0.3 -Total Square (Post) (cm) 0.32 -Area of Debridement (cm) - Length 0.8 -Area of Debridement (cm) - Width 0.4 -Total Square (Area) (cm) 0.32 -Tunneling No -Undermining/Tunneling No -Circular Undermining No -Wound/Ulcer Outcome Not Healed -Ulcer Cleansing Rinsed/ Irrigated with Saline -Foul Odor after Cleansing No -Bioengineered Tissue No -Bleeding Controlled with Pressure -Treatment Response Procedure Tolerated Well -Debridement - Subq, 1st 20sq cm Yes #4 R Buttock -Time 10:16 -Correct Patient Yes -Correct Side, Site, Position Yes -Correct Procedure No -Procedure Performed No -Tunneling No -Undermining/Tunneling No -Circular Undermining No -Wound/Ulcer Outcome Healed- Epithelialized -Ulcer Cleansing Not Cleansed -Foul Odor after Cleansing No -Bioengineered Tissue No -Bleeding Controlled with NA -Offloading No #3 lt Buttock -Time 10:16 -Correct Patient Yes -Correct Side, Site, Position Yes -Correct Procedure No -Procedure Performed No -Tunneling No -Undermining/Tunneling No -Circular Undermining No -Wound/Ulcer Outcome Healed- Epithelialized -Ulcer Cleansing Not Cleansed -Foul Odor after Cleansing No -Bioengineered Tissue No -Bleeding Controlled with NA -Offloading No Pain Scale: 0-10 Numeric Is Patient Pain Free? Yes WC - Nurse 3 - General Ulcer D/C NN Start: 11/16/24 09:47 Freq: Status: Active Protocol: Activity Type Activity Date Activity User E-sign Co-sign Detail Recorded Client Recorded Date Recorded By Document 11/16/24 10:41 CP [id number] 11/16/24 10:42 CP 11/16/24 10:41 Wound Care Center Nurse 3 #5 RT 4TH AND 5TH TOE SPACE -Ulcer Cleansing Rinsed/ Irrigated with Saline -Primary Dressing Applied Promogran -Primary Dressing Covered/Secured with Dry Gauze, Secured with Tape -Promogran 1 #4 R Buttock -Primary Dressing Applied Silicone Border Foam 4x4 -Silicone Border Foam 4x4 1 Pain Scale: 0-10 Numeric Is Patient Pain Free? Yes WC - Visit Discharge Discharge Condition Stable Ambulatory Status Ambulatory Transportation Private Auto Clinical Summary of Care Provided Yes Facility Type Home Health Orders Sent Yes Assessment/Plan Assessment/Plan (1) Diabetic foot ulcer associated with diabetes mellitus due to underlying condition: CODE(S): E08.621 - Diabetes mellitus due to underlying condition with foot ulcer; L97.509 - Non-pressure chronic ulcer of other part of unspecified foot with unspecified severity PLAN: Coates stage II. 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 Bilateral buttock ulcer stays healed. No significant change to the right foot. To the right foot/webspace ulcer, continue Promogran daily and cover with gauze. Recent A1c less than 6.5, optimal diabetes control. Continue same. Continue optimal dietary/protein intake. Continue other chronic wound care management and vitamin E to buttock scar. Her questions were answered and she was advised to let us know if she has any further questions or concerns. Follow-up in 1 week or sooner if needed. This note was generated with [employer] software. It may contain incorrect words, spelling, and punctuation that were not noted in checking the note before signing.
--- NOTE | 2024-11-27 10:38 | WC ---
[facility] called stating patients insurance won't cover the foam sponge ordered and they also wanted to substitute the vit e oil with triad cream. messaged on backline. Awaiting response.
--- NOTE | 2024-11-27 10:58 | WC ---
Flor callede and addressed the questions. Home Health innformed of response.
[2024-11-30 09:48] VITALS: BP 124/81; PULSE 70; RESP 18; TEMP 35.5
--- NOTE | 2024-12-01 08:52 | WC ---
PHOTO 11/30/24 BUTTOCK
== END 2024-12-11 23:59 | disposition home or self-care (01) ==
LOC: WC 10:00
PROVIDERS: PCP Family Medicine Geriatric Medicine; Referring Provider Family Medicine Geriatric Medicine; Visit Provider Internal Medicine
DX: E11.621 Type 2 diabetes mellitus with foot ulcer (principal); L89.323 Pressure ulcer of left buttock, stage 3; L89.313 Pressure ulcer of right buttock, stage 3; L97.502 Non-pressure chronic ulcer of other part of unspecified foot with fat layer exposed; I50.810 Right heart failure, unspecified; M32.9 Systemic lupus erythematosus, unspecified; D84.821 Immunodeficiency due to drugs; R53.81 Other malaise; Z85.528 Personal history of other malignant neoplasm of kidney; Z79.899 Other long term (current) drug therapy; Z90.5 Acquired absence of kidney; Z94.0 Kidney transplant status
CPT/HCPCS: 11042

== ENCOUNTER 2024-12-28 10:00 | Outpatient (RCR) | payer MEDICARE, MEDICAID, SELFPAY ==
[2024-07-19 10:16] VITALS: BMI 31.2
[2024-12-12 00:43] VITALS: BP 124/81; PULSE 70; RESP 18; TEMP 35.5
[2024-12-21 10:26] VITALS: BP 121/73; PULSE 73; RESP 18; TEMP 35.9
--- NOTE | 2024-12-21 12:30 | PN.PCM_ITS ---
History of Present Illness Date of Service: 12/21/24 Chief Complaint: Bilateral Buttock Ulcers. Foot ulcer History of Wound: Miss Plummer is a 54 yo who was referred to the wound center by her PCP due to bilateral buttock ulcers. She also presents with an abdominal nonhealing wound. Had a left total nephrectomy due to renal cancer less than a month ago at the [facility]. She has not seen her primary surgeon who had advised that she come in for this. This wound was not addressed. Bilateral buttock ulcers said to have started a week ago. Following her surgery, had been largely bedbound and not moving as much. She states that this has changed, able to move and reposition better. Has not really done anything to the buttock ulcers. Has home health coming 2 times a week. History of diabetes mellitus, last A1c said to be 6.1. Also history of lupus and renal transplant. She admits to a poor appetite. 10/26/24: Ms. Plummer presents with a new area of opening/ulcer between her right fourth and fifth toe. She states that there was a callus which she pulled on and subsequently developed that area of opening. History of diabetes mellitus type 2, follows up with podiatry and her last visit was 4 to 6 months ago. Has not really done anything to the area. Progress of Wound: No new concerns reported. Has not been seen in a few weeks. She states that she has been doing dressing changes as recommended. She denies increased drainage. Objective Data Objective Data Vital Signs: Vital Signs Temp Pulse Resp BP 96.6 F L 73 18 121/73 H 12/21/24 10:26 12/21/24 10:26 12/21/24 10:26 12/21/24 10:26 Charges/Coding Procedures Integumentary 111xxx-113xx: [id number] Sofia subq tissue 20 sq cm/< Physical Exam Const alert, oriented x3 and no apparent distress General Appearance: cooperative and comfortable HEENT normocephalic and head/scalp atraumatic Eyes EOMs intact bilaterally Neck full ROM General: normal visual inspection Resp normal respiratory effort and normal air movement Extremity no pedal edema Skin Wounds: wounds noted size Size: See clinical note, bed granulating well, margins well approximated, no odor and open Neuro oriented x3, CN's II-XII intact bilaterally and moves all extremities Psych mental status grossly normal, thought process normal, cooperative and affect normal Debridement Note Debridement Note Wound debrided: Right foot (4th-5th webspace) Type of Debridement: Excisional debridement Anesthesia Used: 5% Lidocaine Gel Depth: Down to and including healthy tissue and in the subcutaneous layer Percentage of wound debrided: 100 Instrument Used: 3mm curette Tissue Removed: Slough and devitalized tissue Severity: Fat Layer Exposed Amount of bleeding with debridement: Mild Bleeding Controlled with: Pressure Patient tolerated procedure: Patient tolerated procedure well Post-Debridement Measurements and Additional Note: Post-Debridement Measurements/Treatment WC - Nurse 1 - General Ulcer Assessment Start: 12/21/24 10:26 Freq: Status: Active Protocol: MARIPOSA Activity Type Activity Date Activity User E-sign Co-sign Detail Recorded Client Recorded Date Recorded By Document 12/21/24 10:26 PRASANNA [id number] 12/21/24 10:27 RB 12/21/24 10:26 WC - Today's Visit Information Type of service Follow-up Visit (Physician/APPARATUS ENGINEERING TECHNOLOGIST ) Arrival Mode Ambulatory Transfer Assistance None Patient Identification Verified (Name & Yes ) Patient Requires Transmission-Based No Precautions Vital Signs Temperature (97.8 F-99.1 F) 96.6 F L Temperature Source Temporal Pulse Rate (60-100) 73 Pulse Location Monitor Respiratory Rate (12-18) 18 Respiratory rate source Observation Blood Pressure (90/60-120/80) 121/73 H Blood Pressure Mean (mm Hg) 89 Source Monitor Position Semi-Fowlers Blood Pressure Location Left Arm History Since Last Visit- (Skip if this is Patient's initial visit) Have you changed medications since your No last visit? Any new allergies or adverse reactions No Had a fall/change in ADL's that may No increase risk of falls Signs or symptoms of abuse and/or No neglect since last visit Have you been in the hospital since your No last visit? Has dressing in place as prescribed Yes Has compression in place as prescribed N/A Has offloadiing in place as prescribed N/A Experienced any changes in pain level or No management Left Footwear Regular Shoe Right Footwear Regular Shoe Pain Scale: 0-10 Numeric Is Patient Pain Free? Yes MARISEL Paris Nurse 1 - General Ulcer Measurement Start: 12/21/24 10:26 Freq: Status: Active Protocol: Activity Type Activity Date Activity User E-sign Co-sign Detail Recorded Client Recorded Date Recorded By Document 12/21/24 10:26 RB [id number] 12/21/24 10:27 RB 12/21/24 10:26 Wound Center Nurse 1 #5 RT 4TH AND 5TH TOE SPACE -Combined with other wound No -Current Size (cm) - Length 0.6 -Current Size (cm) - Width 0.2 -Current Size (cm) - Depth 0.2 -Total Square Cm 0.12 -Tunneling No -Undermining/Tunneling No -Circular Undermining No -Exudate Amt Medium -Exudate Type Serosanguineous -Wound Margin Distinct, Outline Attached -Granulation Amt Small (1-33%) -Granulation Quality [place] -Slough/Fibrin Yes -Necrosis Amt None Present (0 %) -Necrotic Tissue Type Adherent Slough -Structure Exposed N/A -Texture (Dalila-wound Skin Appearance) Assessed -Moisture (Dalila-wound Skin Appearance) Maceration -Color (Dalila-wound Skin Appearance) Assessed -Temperature (Dalila-wound Skin No Abnormality Appearance) (Pt Warm) -Tenderness on Palpation (Dalila-wound No Skin Appearance) -Ulcer Cleansing Wound Cleanser -Foul Odor after Cleansing No -Anesthetic Used 5% Lidocaine Gel WC - Nurse 2 - General Ulcer CM Notes Start: 12/21/24 10:26 Freq: Status: Active Protocol: Activity Type Activity Date Activity User E-sign Co-sign Detail Recorded Client Recorded Date Recorded By Document 12/21/24 10:38 [id number] 12/21/24 10:45 GM 12/21/24 10:38 Wound Center Nurse 2 -Time 10:38 -Correct Patient Yes -Correct Side, Site, Position Yes -Correct Procedure Yes -Procedure Performed Yes -Type of Procedure Debridement -Clinical Debridement Subcutaneous -Tissue Removed Subcutaneous -Post Debridement (cm) - Length 1.0 -Post Debridement (cm) - Width 0.3 -Post Debridement (cm) - Depth 0.1 -Total Square (Post) (cm) 0.30 -Area of Debridement (cm) - Length 1.0 -Area of Debridement (cm) - Width 0.3 -Total Square (Area) (cm) 0.30 -Tunneling No -Undermining/Tunneling No -Circular Undermining No -Wound/Ulcer Outcome Not Healed -Ulcer Cleansing Rinsed/ Irrigated with Saline -Foul Odor after Cleansing No -Bioengineered Tissue No -Bleeding Controlled with Pressure -Treatment Response Procedure Tolerated Well -Offloading No -Debridement - Subq, 1st 20sq cm Yes Pain Scale: 0-10 Numeric Is Patient Pain Free? Yes WC - Nurse 3 - General Ulcer D/C NN Start: 12/21/24 10:26 Freq: Status: Active Protocol: Activity Type Activity Date Activity User E-sign Co-sign Detail Recorded Client Recorded Date Recorded By Document 12/21/24 11:03 MD [id number] 12/21/24 11:03 MD 12/21/24 11:03 Wound Care Center Nurse 3 #5 RT 4TH AND 5TH TOE SPACE -Primary Dressing Applied Promogran -Primary Dressing Covered/Secured with Dry Gauze & Roll Gauze, Secured with Tape -Promogran 1 Pain Scale: 0-10 Numeric Is Patient Pain Free? Yes Assessment/Plan Assessment/Plan (1) Diabetic foot ulcer associated with diabetes mellitus due to underlying condition: CODE(S): E08.621 - Diabetes mellitus due to underlying condition with foot ulcer; L97.509 - Non-pressure chronic ulcer of other part of unspecified foot with unspecified severity PLAN: Coates stage II. (2) Decubitus ulcer of left buttock, stage 3: CODE(S): L89.323 - Pressure ulcer of left buttock, stage 3 PLAN: Healed (3) Decubitus ulcer of right buttock, stage 3: CODE(S): L89.313 - Pressure ulcer of right buttock, stage 3 PLAN: Healed (4) SLE (systemic lupus erythematosus): CODE(S): M32.9 - Systemic lupus erythematosus, unspecified (5) Chronic steroid use: (6) CHF with right heart failure: CODE(S): I50.810 - Right heart failure, unspecified (7) Immunosuppression due to drug therapy: CODE(S): D84.821 - Immunodeficiency due to drugs; Z79.899 - Other assisted (current) drug therapy (8) Debility: CODE(S): R53.81 - Other malaise (9) History of renal cell cancer: CODE(S): Z85.528 - Personal history of other malignant neoplasm of kidney (10) Insulin dependent diabetes mellitus: PLAN: Plan Debridement done as documented above, procedure was well-tolerated. Last seen here at least 3 weeks ago. Increased pain. Some change in ulcer circumference. Cultures taken due to increased pain, no drainage or foul smell. For now, continue Promogran daily, cover with Adaptic and gauze. Continue optimal dietary/protein intake and diabetes control. Continue other chronic wound care management and vitamin E to buttock scar. Her questions were answered and she was advised to let us know if she has any further questions or concerns. Follow-up in 1 week or sooner if needed. This note was generated with [employer] dictation software. It may contain incorrect words, spelling, and punctuation that were not noted in checking the note before signing.
[2024-12-28 10:12] VITALS: BP 127/90; PULSE 83; RESP 18; TEMP 36.2
--- NOTE | 2024-12-28 12:46 | PN.PCM_ITS ---
History of Present Illness Date of Service: 12/28/24 Chief Complaint: Bilateral Buttock Ulcers. Foot ulcer History of Wound: Miss Plummer is a 54 yo who was referred to the wound center by her PCP due to bilateral buttock ulcers. She also presents with an abdominal nonhealing wound. Had a left total nephrectomy due to renal cancer less than a month ago at the [facility]. She has not seen her primary surgeon who had advised that she come in for this. This wound was not addressed. Bilateral buttock ulcers said to have started a week ago. Following her surgery, had been largely bedbound and not moving as much. She states that this has changed, able to move and reposition better. Has not really done anything to the buttock ulcers. Has home health coming 2 times a week. History of diabetes mellitus, last A1c said to be 6.1. Also history of lupus and renal transplant. She admits to a poor appetite. 10/26/24: Ms. Plummer presents with a new area of opening/ulcer between her right fourth and fifth toe. She states that there was a callus which she pulled on and subsequently developed that area of opening. History of diabetes mellitus type 2, follows up with podiatry and her last visit was 4 to 6 months ago. Has not really done anything to the area. Progress of Wound: No new concerns reported at this time. Cultures taken at her last visit due to concern for increased pain with debridement. She states that the pain is not as bad. Has been doing dressing changes as recommended. Denies increased drainage. Objective Data Objective Data Vital Signs: Vital Signs Temp Pulse Resp BP 97.1 F L 83 18 127/90 H 12/28/24 10:12 12/28/24 10:12 12/28/24 10:12 12/28/24 10:12 Lab / Micro Data Micro: Microbiology 12/21/24 10:42 Wound - Toe Gram Stain - Final 12/21/24 10:42 Wound - Toe Wound Culture - Final Enterococcus faecalis Presumptive C albicans 12/21/24 10:42 Wound - Toe Anaerobic Culture - Final No anaerobic bacteria isolated. Charges/Coding Procedures Integumentary 111xxx-113xx: [id number] Sofia subq tissue 20 sq cm/< Physical Exam Const alert, oriented x3 and no apparent distress General Appearance: cooperative and comfortable HEENT normocephalic and head/scalp atraumatic Eyes EOMs intact bilaterally Neck full ROM General: normal visual inspection Resp normal respiratory effort and normal air movement Extremity no pedal edema Skin Wounds: wounds noted size Size: See clinical note, bed granulating well, margins well approximated, no odor and open Neuro oriented x3, CN's II-XII intact bilaterally and moves all extremities Psych mental status grossly normal, thought process normal, cooperative and affect normal Debridement Note Debridement Note Wound debrided: Right foot (4th-5th webspace) Type of Debridement: Excisional debridement Anesthesia Used: 5% Lidocaine Gel Depth: Down to and including healthy tissue and in the subcutaneous layer Percentage of wound debrided: 100 Instrument Used: 3mm curette Tissue Removed: Devitalized tissue Severity: Fat Layer Exposed Amount of bleeding with debridement: Mild Bleeding Controlled with: Pressure Patient tolerated procedure: Patient tolerated procedure well Post-Debridement Measurements and Additional Note: Post-Debridement Measurements/Treatment - Nurse 1 - General Ulcer Assessment Start: 12/21/24 10:26 Freq: Status: Active Protocol: MARIPOSA Activity Type Activity Date Activity User E-sign Co-sign Detail Recorded Client Recorded Date Recorded By Document 12/21/24 10:26 [id number] 12/21/24 10:27 RB Document 12/28/24 10:12 RB [id number] 12/28/24 10:15 RB 12/21/24 12/28/24 10:26 10:12 - Today's Visit Information Type of service Follow-up Visit Follow-up Visit (Physician/SHIPS EQUIPMENT ENGINEER (Physician/SHIPS EQUIPMENT ENGINEER ) ) Arrival Mode Ambulatory Ambulatory Transfer Assistance None None Patient Identification Verified (Name & Yes Yes ) Patient Requires Transmission-Based No No Precautions Vital Signs Temperature (97.8 F-99.1 F) 96.6 F L 97.1 F L Temperature Source Temporal Temporal Pulse Rate (60-100) 73 83 Pulse Location Monitor Monitor Respiratory Rate (12-18) 18 18 Respiratory rate source Observation Observation Blood Pressure (90/60-120/80) 121/73 H 127/90 H Blood Pressure Mean (mm Hg) 89 102 Source Monitor Monitor Position Semi-Fowlers Semi-Fowlers Blood Pressure Location Left Arm Left Arm History Since Last Visit- (Skip if this is Patient's initial visit) Have you changed medications since your No No last visit? Any new allergies or adverse reactions No No Had a fall/change in ADL's that may No No increase risk of falls Signs or symptoms of abuse and/or No No neglect since last visit Have you been in the hospital since your No No last visit? Has dressing in place as prescribed Yes Yes Has compression in place as prescribed N/A N/A Has offloadiing in place as prescribed N/A N/A Experienced any changes in pain level or No No management Left Footwear Regular Shoe Regular Shoe Right Footwear Regular Shoe Regular Shoe Pain Scale: 0-10 Numeric Is Patient Pain Free? Yes Yes WC - Nurse 1 - General Ulcer Measurement Start: 12/21/24 10:26 Freq: Status: Active Protocol: Activity Type Activity Date Activity User E-sign Co-sign Detail Recorded Client Recorded Date Recorded By Document 12/21/24 10:26 RB [id number] 12/21/24 10:27 RB Document 12/28/24 10:12 RB [id number] 12/28/24 10:15 RB 12/21/24 12/28/24 10:26 10:12 Wound Center Nurse 1 #5 RT 4TH AND 5TH TOE SPACE -Combined with other wound No No -Current Size (cm) - Length 0.6 1 -Current Size (cm) - Width 0.2 0.4 -Current Size (cm) - Depth 0.2 0.4 -Total Square Cm 0.12 0.4 -Photo Taken Yes -Tunneling No No -Undermining/Tunneling No No -Circular Undermining No No -Exudate Amt Medium Large -Exudate Type Serosanguineous Serosanguineous -Wound Margin Distinct, Distinct, Outline Outline Attached Attached -Granulation Amt Small (1-33%) Medium (34-66%) -Granulation Quality [place] -Slough/Fibrin Yes Yes -Necrosis Amt None Present (0 Small (1-33%) %) -Necrotic Tissue Type Adherent Slough Adherent Slough -Structure Exposed N/A N/A -Texture (Dalila-wound Skin Appearance) Assessed Assessed -Moisture (Dalila-wound Skin Appearance) Maceration Assessed -Color (Dalila-wound Skin Appearance) Assessed Assessed -Temperature (Dalila-wound Skin No Abnormality No Abnormality Appearance) (Pt Warm) (Pt Warm) -Tenderness on Palpation (Dlaila-wound No No Skin Appearance) -Ulcer Cleansing Wound Cleanser Wound Cleanser -Foul Odor after Cleansing No No -Anesthetic Used 5% Lidocaine 5% Lidocaine Gel Gel - Nurse 2 - General Ulcer CM Notes Start: 12/21/24 10:26 Freq: Status: Active Protocol: Activity Type Activity Date Activity User E-sign Co-sign Detail Recorded Client Recorded Date Recorded By Document 12/21/24 10:38 GM [id number] 12/21/24 10:45 GM Document 12/28/24 10:49 GM [id number] 12/28/24 10:53 GM 12/21/24 12/28/24 10:38 10:49 Wound Center Nurse 2 #5 RT 4TH AND 5TH TOE SPACE -Time 10:38 10:49 -Correct Patient Yes Yes -Correct Side, Site, Position Yes Yes -Correct Procedure Yes Yes -Procedure Performed Yes Yes -Type of Procedure Debridement Debridement -Clinical Debridement Subcutaneous Subcutaneous -Tissue Removed Subcutaneous Subcutaneous -Post Debridement (cm) - Length 1.0 0.5 -Post Debridement (cm) - Width 0.3 0.5 -Post Debridement (cm) - Depth 0.1 0.2 -Total Square (Post) (cm) 0.30 0.25 -Area of Debridement (cm) - Length 1.0 0.5 -Area of Debridement (cm) - Width 0.3 0.5 -Total Square (Area) (cm) 0.30 0.25 -Tunneling No No -Undermining/Tunneling No No -Circular Undermining No No -Wound/Ulcer Outcome Not Healed Not Healed -Ulcer Cleansing Rinsed/ Rinsed/ Irrigated with Irrigated with Saline Saline -Foul Odor after Cleansing No No -Bioengineered Tissue No No -Bleeding Controlled with Pressure Pressure -Treatment Response Procedure Procedure Tolerated Well Tolerated Well -Offloading No No -Debridement - Subq, 1st 20sq cm Yes Yes Pain Scale: 0-10 Numeric Is Patient Pain Free? Yes Yes - Nurse 3 - General Ulcer D/C NN Start: 12/21/24 10:26 Freq: Status: Active Protocol: Activity Type Activity Date Activity User E-sign Co-sign Detail Recorded Client Recorded Date Recorded By Document 12/21/24 11:03 MT [id number] 12/21/24 11:03 MT Document 12/28/24 11:07 DS [id number] 12/28/24 11:12 DS Edit Result 12/28/24 11:07 DS (1) [id number] 12/28/24 11:14 DS (1) #5 RT 4TH AND 5TH TOE SPACE - Ulcer Cleansing => Not Cleansed Discharge Condition => Stable Ambulatory Status => Ambulatory 12/21/24 12/28/24 11:03 11:07 Wound Care Center Nurse 3 #5 RT 4TH AND 5TH TOE SPACE -Ulcer Cleansing Not Cleansed -Primary Dressing Applied Promogran Aquacel Extra -Primary Dressing Covered/Secured with Dry Gauze & Dry Gauze, Roll Gauze, Secured with Secured with Tape Tape -Aquacel Extra 1 -Promogran 1 Pain Scale: 0-10 Numeric Is Patient Pain Free? Yes Yes WC - Visit Discharge Discharge Condition Stable Ambulatory Status Ambulatory Assessment/Plan Assessment/Plan (1) Diabetic foot ulcer associated with diabetes mellitus due to underlying condition: CODE(S): E08.621 - Diabetes mellitus due to underlying condition with foot ulcer; L97.509 - Non-pressure chronic ulcer of other part of unspecified foot with unspecified severity PLAN: Coates stage II. (2) Decubitus ulcer of left buttock, stage 3: CODE(S): L89.323 - Pressure ulcer of left buttock, stage 3 PLAN: Healed (3) Decubitus ulcer of right buttock, stage 3: CODE(S): L89.313 - Pressure ulcer of right buttock, stage 3 PLAN: Healed (4) SLE (systemic lupus erythematosus): CODE(S): M32.9 - Systemic lupus erythematosus, unspecified (5) Chronic steroid use: (6) CHF with right heart failure: CODE(S): I50.810 - Right heart failure, unspecified (7) Immunosuppression due to drug therapy: CODE(S): D84.821 - Immunodeficiency due to drugs; Z79.899 - Other supervisor intermediates (current) drug therapy (8) Debility: CODE(S): R53.81 - Other malaise (9) History of renal cell cancer: CODE(S): Z85.528 - Personal history of other malignant neoplasm of kidney (10) Insulin dependent diabetes mellitus: PLAN: Plan Debridement done as documented above, procedure was well-tolerated. As above, pain seems to have improved compared to her last visit. Culture grew 1+ of En terococcus faecalis and Janet albicans. She states that she has had prior intolerance/drug reactions to oral antifungal. Currently on immunosuppressants, increased risk for infection so we will treat with antibiotics. Prescription for Augmentin for 7 days sent. No significant concerns for moisture on examination however, with growth of Janet albicans, will switch to Aquacel extra for better moisture control. Change daily to twice daily as needed. Continue optimal dietary/protein intake and diabetes control. Continue other chronic wound care management and vitamin E to buttock scar. Her questions were answered and she was advised to let us know if she has any further questions or concerns. Follow-up in 2 weeks per patient preference. This note was generated with [employer] dictation software. It may contain incorrect words, spelling, and punctuation that were not noted in checking the note before signing.
--- NOTE | 2024-12-29 10:21 | WC ---
PHOTO 12/29/24 4TH/5TH TOE [email or web address]
== END 2025-01-10 23:59 | disposition home or self-care (01) ==
LOC: WC 10:00
PROVIDERS: PCP Family Medicine Geriatric Medicine; Referring Provider Family Medicine Geriatric Medicine; Visit Provider Internal Medicine
DX: E11.621 Type 2 diabetes mellitus with foot ulcer (principal); L89.323 Pressure ulcer of left buttock, stage 3; L89.313 Pressure ulcer of right buttock, stage 3; L97.512 Non-pressure chronic ulcer of other part of right foot with fat layer exposed; I50.810 Right heart failure, unspecified; M32.9 Systemic lupus erythematosus, unspecified; D84.821 Immunodeficiency due to drugs; R53.81 Other malaise; Z94.0 Kidney transplant status; Z90.5 Acquired absence of kidney; Z85.528 Personal history of other malignant neoplasm of kidney
CPT/HCPCS: 11042; 87070; 87075; 87186; 87205

== ENCOUNTER 2025-01-11 09:50 | Outpatient (RCR) | payer MEDICARE, MEDICAID, SELFPAY ==
[2024-07-19 10:16] VITALS: BMI 31.2
[2025-01-11 00:35] VITALS: BP 127/90; PULSE 83; RESP 18; TEMP 36.2
[2025-01-11 09:59] VITALS: BP 115/53; PULSE 78; RESP 18; TEMP 36
--- NOTE | 2025-01-11 11:10 | PN.PCM_ITS ---
History of Present Illness Date of Service: 01/11/25 Chief Complaint: Bilateral Buttock Ulcers. Foot ulcer History of Wound: Miss Plummer is a 54 yo who was referred to the wound center by her PCP due to bilateral buttock ulcers. She also presents with an abdominal nonhealing wound. Had a left total nephrectomy due to renal cancer less than a month ago at the [facility] [place]. She has not seen her primary surgeon who had advised that she come in for this. This wound was not addressed. Bilateral buttock ulcers said to have started a week ago. Following her surgery, had been largely bedbound and not moving as much. She states that this has changed, able to move and reposition better. Has not really done anything to the buttock ulcers. Has home health coming 2 times a week. History of diabetes mellitus, last A1c said to be 6.1. Also history of lupus and renal transplant. She admits to a poor appetite. 10/26/24: Ms. Plummer presents with a new area of opening/ulcer between her right fourth and fifth toe. She states that there was a callus which she pulled on and subsequently developed that area of opening. History of diabetes mellitus type 2, follows up with podiatry and her last visit was 4 to 6 months ago. Has not really done anything to the area. Progress of Wound: No new concerns at this time. At her last visit, she was switched to Aquacel extra. Ulcer has healed, she believes it healed about a week ago. No further drainage with dressing changes. Objective Data Objective Data Vital Signs: Vital Signs Temp Pulse Resp BP 96.8 F L 78 18 115/53 L 01/11/25 09:59 01/11/25 09:59 01/11/25 09:59 01/11/25 09:59 Charges/Coding Visit Charges Office Visits / Consults: 54416 OV L3 Est 20min Physical Exam Const alert, oriented x3 and no apparent distress General Appearance: cooperative and comfortable HEENT normocephalic and head/scalp atraumatic Eyes EOMs intact bilaterally Neck full ROM General: normal visual inspection Resp normal respiratory effort and normal air movement Extremity no pedal edema Neuro oriented x3, CN's II-XII intact bilaterally and moves all extremities Psych mental status grossly normal, thought process normal, cooperative and affect normal Debridement Note Debridement Note Post-Debridement Measurements and Additional Note: Post-Debridement Measurements/Treatment WC - Nurse 1 - General Ulcer Assessment Start: 01/11/25 09:59 Freq: Status: Active Protocol: MARIPOSA Activity Type Activity Date Activity User E-sign Co-sign Detail Recorded Client Recorded Date Recorded By Document 01/11/25 09:59 PRASANNA [id number] 01/11/25 10:01 01/11/25 09:59 - Today's Visit Information 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 of service 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 Any new allergies or adverse reactions No Had a fall/change in ADL's that may No increase risk of falls Signs or symptoms of abuse and/or No neglect since last visit Have you been in the hospital since your No last visit? Has dressing in place as prescribed Yes Has compression in place as prescribed N/A Has offloadiing in place as prescribed N/A Experienced any changes in pain level or No management Left Footwear Regular Shoe Right Footwear Regular Shoe Pain Scale: 0-10 Numeric Is Patient Pain Free? Yes - Nurse 1 - General Ulcer Measurement Start: 01/11/25 09:59 Freq: Status: Active Protocol: Activity Type Activity Date Activity User E-sign Co-sign Detail Recorded Client Recorded Date Recorded By Document 01/11/25 09:59 PRASANNA [id number] 01/11/25 10:01 RB 01/11/25 09:59 Wound Center Nurse 1 #5 RT 4TH AND 5TH TOE SPACE -Combined with other wound No -Current Size (cm) - Length 0 -Current Size (cm) - Width 0 -Current Size (cm) - Depth 0 -Total Square Cm 0 -Photo Taken Yes -Epithelialization Large 67-100% -Exudate Amt None Present -Granulation Amt Large (67-100%) -Granulation Quality Tillar -Slough/Fibrin No -Structure Exposed N/A -Texture (Dalila-wound Skin Appearance) Assessed -Moisture (Dalila-wound Skin Appearance) Assessed -Color (Dalila-wound Skin Appearance) Assessed -Temperature (Dalila-wound Skin No Abnormality Appearance) (Pt Warm) -Tenderness on Palpation (Dalila-wound No Skin Appearance) -Ulcer Cleansing Wound Cleanser -Foul Odor after Cleansing No -Anesthetic Used 5% Lidocaine Gel - Nurse 2 - General Ulcer CM Notes Start: 01/11/25 09:59 Freq: Status: Active Protocol: Activity Type Activity Date Activity User E-sign Co-sign Detail Recorded Client Recorded Date Recorded By Document 01/11/25 10:43 [id number] 01/11/25 10:46 01/11/25 10:43 Wound Center Nurse 2 -Time 10:43 -Correct Patient Yes -Correct Side, Site, Position Yes -Correct Procedure No -Procedure Performed No -Tunneling No -Undermining/Tunneling No -Circular Undermining No -Wound/Ulcer Outcome Healed- Epithelialized -Ulcer Cleansing Not Cleansed -Foul Odor after Cleansing No -Bioengineered Tissue No -Bleeding Controlled with NA Pain Scale: 0-10 Numeric Is Patient Pain Free? Yes - Nurse 3 - General Ulcer D/C NN Start: 01/11/25 09:59 Freq: Status: Active Protocol: Activity Type Activity Date Activity User E-sign Co-sign Detail Recorded Client Recorded Date Recorded By Document 01/11/25 11:01 [id number] 01/11/25 11:02 01/11/25 11:01 Wound Care Center Nurse 3 #5 RT 4TH AND 5TH TOE SPACE -Primary Dressing Covered/Secured with Dry Gauze, Secured with Tape Pain Scale: 0-10 Numeric Is Patient Pain Free? Yes - Visit Discharge Discharge Condition Stable Ambulatory Status Ambulatory Transportation Private Auto Clinical Summary of Care Provided Yes Assessment/Plan Assessment/Plan (1) Diabetic foot ulcer associated with diabetes mellitus due to underlying condition: CODE(S): E08.621 - Diabetes mellitus due to underlying condition with foot ulcer; L97.509 - Non-pressure chronic ulcer of other part of unspecified foot with unspecified severity PLAN: Coates stage II. 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 No new concerns reported at this time. Due to risk for moisture, continue gauze to the area for 2 to 3 weeks and then stop. Continue other diabetic footcare management. Follow-up with podiatry and PCP outpatient. She was advised to call with any questions or concerns. Discharge from the wound clinic This note was generated with Pixim dictation software. It may contain incorrect words, spelling, and punctuation that were not noted in checking the note before signing.
--- NOTE | 2025-01-12 10:32 | WC ---
PHOTO 01/11/25 TOE
== END 2025-02-10 23:59 | disposition home or self-care (01) ==
LOC: WC 09:50
PROVIDERS: PCP Family Medicine Geriatric Medicine; Referring Provider Family Medicine Geriatric Medicine; Visit Provider Internal Medicine
DX: E11.621 Type 2 diabetes mellitus with foot ulcer (principal); L89.323 Pressure ulcer of left buttock, stage 3; L89.313 Pressure ulcer of right buttock, stage 3; L97.509 Non-pressure chronic ulcer of other part of unspecified foot with unspecified severity; I50.810 Right heart failure, unspecified; M32.9 Systemic lupus erythematosus, unspecified; D84.821 Immunodeficiency due to drugs; R53.81 Other malaise; Z85.828 Personal history of other malignant neoplasm of skin; Z79.899 Other long term (current) drug therapy; Z90.5 Acquired absence of kidney
CPT/HCPCS: 99213; G0463

== ENCOUNTER → 2025-03-06 | Outpatient (CLI) | payer MEDICARE, MEDICAID, SELFPAY ==
[2024-07-19 10:16] VITALS: BMI 31.2
[2025-03-06 16:09] LABS: Absolute Lymphocyte Count 0.49 X10^3/uL (0.83-4.51); Absolute Neutrophil Count 7.4 X10^3/uL (2.0-7.7); Basophil# 0.02 X10^3/uL; Basophil% 0.2 % (0-1); Eosinophil# 0.05 X10^3/uL; Eosinophils% 0.6 % (0-5); Hematocrit 33.6 % (37-47); Hemoglobin 10.2 g/dL (12.0-15.0); Lymphocyte # 0.49 X10^3/ul (0.83-4.51); Lymphocyte % 5.8 % (19-41); Mean Corp Hgb Conc 30.4 g/dL (32-36); Mean Corpuscular Hgb 28.6 pg (27.0-32.0); Mean Corpuscular Volume 94.1 fL (81-99); Mean Platelet Vol. 10.8 fl (6.2-12.0); Monocyte# 0.44 X10^3/uL; Monocyte% 5.2 % (0-10); NRBC Flagged by Analyzer 0 % (0-5); Neutrophil # 7.43 X10^3/uL (2.7-7.7); Neutrophil % 87.6 % (47-70); POSITIVE DIFFERENTIAL YES; Platelet Count 227 K/mm3 (150-450); RBC Distribution Width CV 16.6 % (11.6-14.6); RBC Distribution Width SD 55.9 fl (35.1-43.9); Red Blood Count 3.57 M/mm3 (4.2-5.4); White Blood Count 8.5 K/mm3 (4.4-11.0)
[2025-03-06 16:22] LABS: Microalbumin:Creatinine Ratio 216.9 mg/g CRE
[2025-03-06 16:49] LABS: Color, Urine Yellow (Yellow); Glucose, Dipstick 250 mg/dl (Normal); Ketone-Dipstick Negative (Negative); Leukocyte Esterase-Dipstick 500 /ul (Negative); Nitrite-Dipstick Positive (Negative); Occult Blood-Urine 150 /ul (Negative); Protein-Dipstick 30 mg/dl (Negative); Specific Gravity, Urine 1.025 (1.002-1.030); Urine Bilirubin Dipstick Negative (Negative); Urine Clarity Turbid (Clear); Urine Urobilinogen 4 mg/dl (Normal)
[2025-03-06 16:58] LABS: ALB/GLOB Ratio 0.7 RATIO (0.9-2.4); AST(SGOT) 24 U/L (<=31); Alanine Aminotransfer ALT/SGPT 6 U/L (<=34); Albumin, Serum 3.3 g/dL (3.5-5.0); Alkaline Phosphatase 149 U/L (35-104); Anion Gap 12 (5-15); BUN 40 mg/dL (4-19); BUN/Creat Ratio 21.9 RATIO (10-20); Calcium,Total 9.3 mg/dL (7.6-11.0); Carbon Dioxide 19.8 mmol/L (21.0-32.0); Chloride 104 mmol/L (98-108); Cholesterol 118 mg/dL (<=200); Creatinine, Serum 1.81 mg/dL (0.70-1.20); EST Glomerular Filtration Rate 33 (>60); Globulin 4.7 g/dL (2.2-4.2); Glucose 119 mg/dL (70-99); High Density Lipoprotein 35 mg/dL; Low Density Lipoprotein Calc. 58 mg/dL; Sodium Level 136 mmol/L (133-145); Thyroid Stim Hormone (TSH) 0.637 uIU/mL (0.300-4.200); Total Bilirubin 2.29 mg/dL (0.00-1.30); Triglycerides 126 mg/dL; Very Low Density Lipoprotein 25 mg/dL (5-40)
[2025-03-06 17:05] LABS: Hemoglobin A1c 5.6 % (<=5.6)
== END | disposition home or self-care (01) ==
LOC: LAB 15:08
PROVIDERS: PCP Family Medicine Geriatric Medicine; Referring Provider Family Medicine Geriatric Medicine; Visit Provider Family Medicine Geriatric Medicine
DX: N39.0 Urinary tract infection, site not specified (principal); E11.65 Type 2 diabetes mellitus with hyperglycemia; E78.5 Hyperlipidemia, unspecified; I10 Essential (primary) hypertension
CPT/HCPCS: 36415; 80053; 80061; 81002; 82043; 82570; 83036; 84443; 85025; 87077; 87086; 87088; 87186

== ENCOUNTER → 2025-03-13 | Outpatient (CLI) | payer MEDICARE, MEDICAID, SELFPAY ==
[2024-07-19 10:16] VITALS: BMI 31.2
--- NOTE | 2025-03-13 14:54 | BI_ITS ---
EXAM: SCRN MAMM (CAD)W/OSCAR BILAT DATE: 03/13/2025 CLINICAL HISTORY: F, Age 54 y/o , SCREENING MAMMOGRAM FOR BREAST CANCER TECHNIQUE: SCRN MAMM (CAD)W/OSCAR BILAT COMPARISON: Prior exam(s) were compared FINDINGS: TISSUE DENSITY: The breasts are heterogeneously dense, which may obscure small masses. Bilateral Breast Mammographic Findings: No significant masses, calcifications or other abnormalities are identified. BI/SCRN MAMM (CAD)W/OSCAR BILAT IMPRESSION: No mammographic evidence of malignancy in either breast. OVERALL FINAL ASSESSMENT BI-RADS 1: NEGATIVE. RECOMMEND ANNUAL MAMMOGRAPHIC SCREENING. RECOMMENDATION: Routine annual follow-up in 1 Year A letter with findings and recommendations will be mailed to the patient. Reading Location: [id number]
== END | disposition home or self-care (01) ==
LOC: OPBI 14:53
PROVIDERS: PCP Family Medicine Geriatric Medicine; Referring Provider Nurse Practitioner Women's Health; Visit Provider Nurse Practitioner Women's Health
DX: Z12.31 Encounter for screening mammogram for malignant neoplasm of breast (principal); Z12.4 Encounter for screening for malignant neoplasm of cervix; D84.9 Immunodeficiency, unspecified
CPT/HCPCS: 77063; 77067; 87624; 88175; G0145

== ENCOUNTER 2025-04-12 10:11 | Outpatient (RCR) | payer MEDICARE, MEDICAID, SELFPAY ==
[2025-03-28 15:16] VITALS: BMI 31.2
[2025-04-12 10:31] VITALS: BP 115/67; PULSE 84; RESP 16; TEMP 35.9; BMI 27.9
--- NOTE | 2025-04-12 13:07 | HP.PCM_ITS ---
History of Present Illness Date of Service: 04/12/25 Chief Complaint: Right foot ulceration History of Wound: Miss Plummer is a 54 yo who was referred to the wound center by her PCP due to right foot ulceration. She has PMHx of left total nephrectomy due to renal cancer at the [facility], DM type II with peripheral polyneuropathy, hyperlipidemia, narcolepsy, SLE, HTN, chronic diastolic CHF, BRENDAN, anxiety, depression, fibromyalgia, CKD, stage III, Hx of bilateral buttock ulcerations previously treated at the wound care center, debility, TR s/p TT VR on warfarin, and recent diagnosis of cirrhosis of liver. She was previously seen in office by Dr. Escobar and was undergoing treatment with Nel and Betadine which was noted to be healing well. She did follow-up with her PCP Dr. Bowen who urged her for a referral to the wound care center. She has home health coming 2 times a week. History of diabetes mellitus, last A1c said to be 5.5%. Also history of lupus and renal transplant. She admits to a poor appetite. 10/26/24: Ms. Plummer presented with area of opening/ulcer between her right fourth and fifth toe. She states that there was a callus which she pulled on and subsequently developed that area of opening. It is noted that this area has reopened thus the referral back to the wound center for treatment. Currently denies N/V/F/chills. Denies further complaints. [facility] Medical History Colon polyp Cataract (lens) fragments in eye following cataract surgery, bilateral Diabetic foot ulcer associated with diabetes mellitus due to underlying condit ion History of renal cell cancer Debility Immunosuppression due to drug therapy Decubitus ulcer of right buttock, stage 3 Decubitus ulcer of left buttock, stage 3 Polyneuropathy due to type 2 diabetes mellitus Chronic sinusitis Incisional hernia CKD (chronic kidney disease) stage 4, GFR 15-29 ml/min Wears glasses Wears dentures Post-menopausal Insulin dependent diabetes mellitus Uses wheelchair Walker as ambulation aid Ambulates with cane Lupus Fatty liver Gastric reflux Non-smoker CPAP (continuous positive airway pressure) dependence Shortness of breath on exertion History of echocardiogram History of stress test Cardiology follow-up encounter Obstructive sleep apnea CHF with right heart failure Diastolic CHF, chronic Right ventricular dilation Essential hypertension Osteopenia Vitamin D deficiency 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) Hypophosphatemia Hip pain Prolonged QT interval Chronic diarrhea Nonrheumatic mitral (valve) insufficiency Secondary pulmonary arterial hypertension Non-rheumatic tricuspid valve insufficiency Degenerative disc disease, cervical Cervical spondylosis Narcolepsy Lupus nephritis SLE (systemic lupus erythematosus) Home Medications ?Medication ?Instructions ?Recorded ?Last Taken ?Type prednisone 5 mg tablet 5 mg PO DAILY steroid for mary anne pus 07/08/20 08/22/24 08:16 History levocetirizine 5 mg tablet 5 mg PO DAILY ALLERGIES 12/3108/22/24 08:15 History blood sugar diagnostic #10 ea 11/04/20 Unknown Hist ory lancets 33 gauge #100 ea 11/04/20 Unknown His tory pregabalin 150 mg capsule 150 mg PO BID neuropathy 08/22/24 08:17 History OneTouch Verio test strips (blood #360 ea 04/17/21 Unk nown Rx sugar diagnostic) hydroxychloroquine 200 mg tablet 200 mg PO DAILY antim alarial 07/08/21 08/22/24 08:13 History acetaminophen 500 mg tablet 500 mg PO Q6H PRN pain/fev er 11/25/21 Unknown History ketoconazole 2 % shampoo 1 applic topical DAILY hair loss 01/04/22 10/31/23 History desvenlafaxine succinate 100 mg 100 mg PO DAILY ANTIDE PRESSANT 02/19/22 08/22/24 08:09 History tablet,extended release 24 hr Dexcom G6 Nutrition Program Instructor #1 ea 03/04/22 Unknown Rx (blood-glucose,guest service manager,cont) cevimeline 30 mg capsule (Evoxac) 1 cap PO TID dry dee th 05/05/22 08/22/24 08:08 History BD Ultra-Fine Mini Pen Needle 31 #100 ea 06/30/22 Unkn own Rx gauge x 3/16 (pen needle, diabetic) mycophenolate mofetil 250 mg 500 mg PO BID anti reject ion 03/04/23 08/22/24 08:16 History capsule (CellCept) mirtazapine 15 mg tablet 15 mg PO QHS sleep 03/05/23 08/21/24 20:15 History alpha lipoic acid 600 mg capsule 600 mg PO DAILY neuro que 02/17/24 08/21/24 20:04 History bumetanide 1 mg tablet 1 mg PO .qd fluid retention 02/17/24 08/21/24 20:05 History carvedilol 6.25 mg tablet 6.25 mg PO BID heart functio n 02/17/24 08/22/24 08:07 History fluticasone propionate 50 1 spray intranasal DAILY PRN 02/17/24 Unknown History mcg/actuation nasal allergies spray,suspension (Flonase Allergy Relief) warfarin 3 mg tablet 3 mg PO .qd heart valve 03/0605/25/24 History insulin pump cart,automated,BT #45 ea 04/07/24 Unknown Rx (Omnipod 5 G6 Pods (Gen 5) subcutaneous cartridge) loperamide 2 mg capsule (Imodium 2 mg PO Q6H PRN diarr hea 05/29/24 08/22/24 08:15 History A-D) empagliflozin 10 mg tablet 10 mg PO QDAY diabetes 06/0608/22/24 08:11 History (Jardiance) aspirin 81 mg tablet,delayed 81 mg PO DAILY heart heal th 08/01/24 08/22/24 08:04 History release budesonide 1 mg/2 mL suspension 1 mg irrigation TID ch ronic 08/01/24 08/22/24 08:40 History for nebulization sinusitis cyclosporine modified 25 mg capsule PO antirejection 1 10/01/23 Unknown History efinaconazole 10 % topical 1 applic topical .qd PRN na il 08/01/24 Unknown History solution with applicator (Mallory) fungus ketorolac 0.5 % eye drops 1 drp LEFT EYE 4X/DAY allerg ies 08/01/24 08/22/24 12:00 History diclofenac sodium 1 % topical gel 4.5 inch topical TID PRN JOINT PAIN 08/22/24 Unknown History ipratropium 20 mcg-albuterol 100 2 puff inhalation RACHAEL LY PRN 08/22/24 Unknown History mcg/actuation mist for inhalation wheezing (Combivent Respimat) oxycodone 5 mg tablet 5 mg PO TID PRN PRN pain 07/0608/21/24 History sodium chloride 0.9 % irrigation 1 irrig irrigation TI D chronic 08/22/24 08/22/24 08:35 History solution sinusitis insulin pump cart,auto,BT,G6/7 #45 ea 09/25/24 Unknown Rx (Omnipod 5 G6-G7 Pods (Gen 5) subcutaneous cartridge) blood sugar diagnostic (OneTouch #100 ea 11/06/24 Unkn own Rx Verio test strips) lancets 33 gauge #200 ea 11/07/24 Unknown Rx Dexcom G6 Transmitter #1 ea 12/13/24 Unknown Rx (blood-glucose transmitter) Humalog U-100 Insulin 100 unit/mL 100 unit subcut GILDARDO Y diabetes #90 12/13/24 Unknown Rx subcutaneous solution (insulin mL lispro) Dexcom G6 Sensor (blood-glucose #3 ea 02/14/25 Unknown Rx sensor) ferrous sulfate 325 mg (65 mg 325 mg PO BID 03/19/25 U nknown History iron) tablet Allergy/AdvReac Type Severity Reaction Status Date / Time LONG Inhibitors Allergy Angioedema Verified 04/09/25 09:23 adhesive Allergy Rash Verified 04/09/25 09:23 lisinopril Allergy Angioedema Verified 04/09/25 09:23 Sulfa (Sulfonamide Allergy Rash Verified 04/09/25 09:23 Antibiotics) sulfamethoxazole (From Allergy Rash Verified 04/09/25 09:23 Bactrim) trimethoprim (From Bactrim) Allergy Rash Verified 04/09/25 09:23 tuberculin, purified protein Allergy Unknown Verified 04/09/25 09:23 deriva Family History Mother Hypertension Kidney disease ALS (amyotrophic lateral sclerosis) Father Heart disease Hypertension Kidney disease Diabetes Brother Melanoma Surgical History History of kidney removal Status post kidney transplant Tricuspid valve replaced Transplant recipient History of dilation and curettage History of biopsy History of right hip replacement Hx of right heart catheterization Kidney transplant recipient Hip replacement planned History of left heart catheterization (03/08/20) revision of right hip arthroplasty (05/10/19) port removed Status post carpal tunnel release Status post total hip replacement, bilateral S/P lymph node biopsy S/P colonoscopy History of esophagogastroduodenoscopy (EGD) S/P nasal polypectomy Social History (Reviewed 04/09/25 @ 09:29 by RENAE Torres household members: family housing: house Smoking Status: Never smoker alcohol intake: never substance use type: does not use caffeine: No what type of physical activity do you participate in: other details: PT seatbelt use: always do you feel safe at home: Yes additional social history: Single ROS Constitutional Constitutional: Denies anorexia, change in weight, chills or fever(s) Eyes Eyes: Denies blurry vision, change in vision or double vision ENT HEENT: Denies dysphagia, nasal congestion or nasal discharge Cardiovascular Cardiovascular: Denies chest pain, claudication or palpitations Respiratory/Chest Respiratory/Chest: Denies cough, shortness of breath at rest or wheezing Gastrointestinal Gastrointestinal: Denies abdominal pain, constipation, diarrhea, nausea or vomiting Genitourinary Genitourinary: Denies dysuria, hematuria or urinary urgency Musculoskeletal Musculoskeletal: Denies joint pain, joint stiffness or joint swelling Integumentary Integumentary: Denies jaundice, lesions, pruritus or rash Neurologic Neurologic: Denies dizziness, numbness or seizures Psychiatric Psychiatric: Reports anxiety and depression Endocrine Endocrinology: Denies cold intolerance or heat intolerance Hematologic/Lymphatic Hematologic/Lymphatic: Denies easy bleeding or easy bruising Vital Signs Vital Signs Vital Signs: 04/12/25 10:31 Temperature 96.6 F L Temperature Source Temporal Pulse Rate 84 Respiratory Rate 16 Blood Pressure 115/67 Blood Pressure Mean 83 Blood Pressure Source Monitor Blood Pressure Position Sitting Blood Pressure Location Right Arm Weight Weight: 73.936 kg Body Mass Index (BMI) 27.9 Physical Exam Const alert, oriented x3 and no apparent distress General Appearance: cooperative HEENT normocephalic Eyes General Eye: normal appearance of both eyes Neck General: normal visual inspection Lymph Lymphatic: no lymphadenopathy noted and no lymphedema noted Resp normal respiratory effort Cardio regular rate and regular rhythm Extremity no calf tenderness Extremity Narrative: Bilateral lower extremity: Vascular: DP and PT pulses palpable. CFT is less than 4 seconds to digits. No rmal temperature gradient. Hair growth is diminished to digits. Neurologic: Gross sensation intact. Protective sensation is diminished secondary to diabetic peripheral polyneuropathy. Musculoskeletal: Muscle strength 5 of 5 age-appropriate. Full, smooth, pain- free range of motion of the ankle joint, subtalar joint, midtarsal joint, and first MTPJ. No pain to palpation of calf. No pain to palpation of the fifth digit near ulceration site of right foot. Dermatologic: There is a full-thickness ulceration noted to the fourth interdigital webspace near the base of the fifth digit of the right foot with healthy granular layer and macerated border secondary to serous drainage. No signs of infection. Skin no rashes or lesions noted Neuro moves all extremities Debridement Note Debridement Note No debridement was completed: No debridement was completed today Post-Debridement Measurements and Additional Note: Post-Debridement Measurements/Treatment - Nurse 1 - General Ulcer Assessment Start: 04/12/25 10:27 Freq: Status: Active Protocol: MARIPOSA Activity Type Activity Date Activity User E-sign Co-sign Detail Recorded Client Recorded Date Recorded By Document 04/12/25 10:31 SASHA [id number] 04/12/25 10:43 04/12/25 10:31 - Today's Visit Information Type of service Initial Visit Arrival Mode Ambulatory Patient Identification Verified (Name & Yes ) Patient Requires Transmission-Based No Precautions Finger Stick Blood Sugar(mg/dl) (if 119 indicated): Blood Sugar Stated by Patient Height and Weight Height 5 ft 4 in Weight 73.936 kg Weight in Pounds 163.0 lbs Weight Measurement Method Estimated by Patient Body Mass Index (BMI) 27.9 BMI Classification Overweight Vital Signs Temperature (97.8 F-99.1 F) 96.6 F L Temperature Source Temporal Pulse Rate (60-100) 84 Pulse Location Monitor Respiratory Rate (12-18) 16 Respiratory rate source Observation Blood Pressure (90/60-120/80) 115/67 Blood Pressure Mean 83 Source Monitor Position Sitting Blood Pressure Location Right Arm History Since Last Visit- (Skip if this is Patient's initial visit) Left Footwear Diabetic Shoe Right Footwear Diabetic Shoe Pain Scale: 0-10 Numeric Is Patient Pain Free? Yes right foot -Description Sharp,Pressure -Intensity 2 -Duration (hours) Acute -Pain Behavior Irritability -Pain Aggravating Factors Walking -Alleviating Factors/Interventions Inactivity/ Resting -Effectiveness of Alleviating Factor/ Moderately Intervention effective Lower Extremity Assessment/ Foot Assessment/ Toe Nail Assessment Right -Posterior Tibial Palpable Yes -Posterior Tibial Doppler Multiphasic -Dorsalis Pedis Palpable Yes -Dorsalis Pedis Doppler Multiphasic -Extremity Color Pale -Hair Growth on Legs No -Hair Growth on Toes No -Temperature of Extremity Warm -Capillary Refill Less than 3 Seconds -Other Deformity No -Prior Foot Ulcer No -Charcot Joint No -Prior Amputation No -Toe Nail Assessment Not Applicable -Thick Yes -Discolored Yes -Deformed Yes -Improper Length & Hygeine Yes Communication Assessment Preferred language Polish Software Test Developer Required No Able to Read Yes Able to Write Yes Communication Tools None Caregiver Communication Skills No Impairment Impairment Right Hearing Abillity Normal Left Hearing Abillity Normal Visual Assistive Devices Glasses Teaching Assessment Preferences Verbal,Written, Audio/Visual, Demonstration Barriers to Learning Decreased Motivation Readiness To Learn Fair Willingness to Engage in Self Management Med Activies Readiness to Engage in Self Management Med Activities Anxiety Level Calm Cooperation Cooperative Perception Coherent Interest in Health Problem Asks Questions Education Importance Acknowledges Need Does Patient Smoke tobacco or other No substances Smoking Status Never smoker Is Patient Diabetic Yes Functional Assessment Recent Decline in Ability to Perform Denies Any Declines Culture/Oriental Orthodox/Board Winder Cultural/Oriental Orthodox Needs that may affect No Treatment Plan Would you allow our [facility] brine to No meet you for the purpose of spiritual/ emotional support? Board Winder to contact place of jewish No Teaching: Wound Center [facility] Orientation/ Contacting Physician -Person Taught Patient -Teaching Method Discussion, Demonstration -Response to teaching Return Demonstration, Verbalize Understanding - Nurse 1 - General Ulcer Measurement Start: 04/12/25 10:27 Freq: Status: Active Protocol: Activity Type Activity Date Activity User E-sign Co-sign Detail Recorded Client Recorded Date Recorded By Document 04/12/25 10:31 SASHA [id number] 04/12/25 10:43 SASHA 04/12/25 10:31 Wound Center Nurse 1 6-right 4th webspace -Combined with other wound No -Current Size (cm) - Length 0.5 -Current Size (cm) - Width 0.2 -Current Size (cm) - Depth 0.1 -Total Square Cm 0.10 -Photo Taken Yes -Epithelialization Small 1-33% -Tunneling No -Undermining/Tunneling No -Circular Undermining No -Exudate Amt Small -Exudate Type Serosanguineous -Wound Margin Flat & Intact -Granulation Amt Small (1-33%) -Granulation Quality [place] -Slough/Fibrin Yes -Necrosis Amt Medium (34-66%) -Necrotic Tissue Type Adherent Slough -Structure Exposed N/A -Texture (Dalila-wound Skin Appearance) Assessed -Moisture (Dalila-wound Skin Appearance) Assessed,Dry/ Scaly -Color (Dalila-wound Skin Appearance) Assessed -Temperature (Dalila-wound Skin No Abnormality Appearance) (Pt Warm) -Tenderness on Palpation (Dalila-wound No Skin Appearance) -Ulcer Cleansing Rinsed/ Irrigated with Saline -Foul Odor after Cleansing No -Anesthetic Used 5% Lidocaine Gel Lower Limb Edema Present No WC - Nurse 2 - General Ulcer CM Notes Start: 04/12/25 10:27 Freq: Status: Active Protocol: Activity Type Activity Date Activity User E-sign Co-sign Detail Recorded Client Recorded Date Recorded By Document 04/12/25 11:42 [facility] [id number] 04/12/25 11:45 [facility] 04/12/25 11:42 Wound Center Nurse 2 6-right 4th webspace -Time 11:43 -Procedure Performed No -Post Debridement (cm) - Length 0.2 -Post Debridement (cm) - Width 0.2 -Post Debridement (cm) - Depth 0.1 -Total Square (Post) (cm) 0.04 -Area of Debridement (cm) - Length 0.2 -Area of Debridement (cm) - Width 0.2 -Total Square (Area) (cm) 0.04 -Wound/Ulcer Outcome Not Healed -Bleeding Controlled with NA Pain Scale: 0-10 Numeric Is Patient Pain Free? Yes - Nurse 3 - General Ulcer D/C NN Start: 04/12/25 10:27 Freq: Status: Active Protocol: Activity Type Activity Date Activity User E-sign Co-sign Detail Recorded Client Recorded Date Recorded By Document 04/12/25 11:47 [id number] 04/12/25 11:47 04/12/25 11:47 Wound Care Center Nurse 3 6-right 4th webspace -Primary Dressing Applied Promogran Nel Matter -Other Dressing betadine painted -Primary Dressing Covered/Secured with Dry Gauze & Roll Gauze, Secured with Tape -Promogran Nel Matter 1 Pain Scale: 0-10 Numeric Is Patient Pain Free? Yes - Visit Discharge Discharge Condition Stable Ambulatory Status Ambulatory Transportation Private Auto Medication Reconcilliation completed & No provided to patient/care provider Clinical Summary of Care Provided Yes Assessment/Plan Assessment/Plan (1) Non-pressure chronic ulcer of other part of right foot with fat layer exposed: CODE(S): L97.512 - Non-pressure chronic ulcer of other part of right foot with fat layer exposed (2) Diabetes: CODE(S): E11.9 - Type 2 diabetes mellitus without complications QUALIFIERS: Diabetes mellitus type: type 2 Diabetes mellitus correction insulin use: without correction use Diabetes mellitus complication status: with hyperglycemia Qualified Code(s): E11.65 - Type 2 diabetes mellitus with hyperglycemia (3) Diabetic foot ulcer associated with diabetes mellitus due to underlying condition: CODE(S): E08.621 - Diabetes mellitus due to underlying condition with foot ulcer; L97.509 - Non-pressure chronic ulcer of other part of unspecified foot with unspecified severity (4) Debility: CODE(S): R53.81 - Other malaise PLAN: Plan Patient seen and evaluated Predebridement measurement 0.2 cm x 0.2 cm x 0.1 cm Postdebridement measurement 0.2 cm x 0.2 cm x 0.1 cm Ulcerative site did not undergo debridement as noted in the clinical panel above. Ulcerative site does appear to be healing well at this current time with the current treatment. Site was painted with Betadine and Nel was applied with dry sterile dressing. She is to continue changing the dressing daily. Discussed continued strict glycemic control. Current A1c 5.5%. Discussed adequate protein intake to aid in wound healing. Christ supplementation was recommended. Discussed importance of continued daily foot checks as she is diabetic. Encouraged to always wear shoe gear when ambulating and to never ambulate barefoot, this does include socks. She will continue to follow with PCP and studio hand for management of her diabetes but currently in good standing. Discussed signs and symptoms of infection. Discussed if she notices any increasing redness around the fifth toe/ulcerative site that moves up onto the foot or up the leg, purulent drainage from the wound site, increasing foul odor from the wound, or if she experiences fever greater than 101 degree accompanied by nausea, vomiting, chills of these are signs of a progressing infection and she should report to the ED for IV antibiotics and for further evaluation. She is understanding of this today. The following work up and care recommendations were made: Dressing: Betadine to the ulcerative site, Nel to ulcerative base, dry sterile dressing. Change dressing daily Wash: Soap and water Tissue growth optimization: Nel Offload: None Vascular: DP and PT pulses palpable with adequate cap fill time. Vascular status not impacting healing at this time. Edema: None Infection: No signs of infection Pain: May take [id number] Tylenol as needed for discomfort. Host factors: DM type II, debility, HTN, hyperlipidemia, cirrhosis of liver, CKD stage III, SLE, fibromyalgia, CHF, all Impact healing status I answered all the patient's questions. To return to the wound healing center in 1 week or call sooner if the patient has any questions or concerns.
== END 2025-04-12 23:59 | disposition home or self-care (01) ==
LOC: WC 10:11
PROVIDERS: PCP Family Medicine Geriatric Medicine; Referring Provider Family Medicine Geriatric Medicine; Visit Provider Student in an Organized Health Care Education/Training Program
DX: E11.621 Type 2 diabetes mellitus with foot ulcer (principal); L97.512 Non-pressure chronic ulcer of other part of right foot with fat layer exposed; K74.60 Unspecified cirrhosis of liver; I50.812 Chronic right heart failure; I13.0 Hypertensive heart and chronic kidney disease with heart failure and stage 1 through stage 4 chronic kidney disease, or unspecified chronic kidney disease; I50.32 Chronic diastolic (congestive) heart failure; M32.9 Systemic lupus erythematosus, unspecified; E11.42 Type 2 diabetes mellitus with diabetic polyneuropathy; E11.65 Type 2 diabetes mellitus with hyperglycemia; E11.22 Type 2 diabetes mellitus with diabetic chronic kidney disease; N18.30 Chronic kidney disease, stage 3 unspecified; Z83.3 Family history of diabetes mellitus; F41.9 Anxiety disorder, unspecified; G47.33 Obstructive sleep apnea (adult) (pediatric); Z79.52 Long term (current) use of systemic steroids; M79.7 Fibromyalgia; F32.A Depression, unspecified; G47.419 Narcolepsy without cataplexy; E78.5 Hyperlipidemia, unspecified; Z96.41 Presence of insulin pump (external) (internal); Z79.84 Long term (current) use of oral hypoglycemic drugs; R53.81 Other malaise; Z94.0 Kidney transplant status
CPT/HCPCS: 99213; G0463

== ENCOUNTER → 2025-04-18 | Outpatient (CLI) | payer MEDICARE, MEDICAID, SELFPAY ==
[2025-03-28 15:16] VITALS: BMI 31.2
--- NOTE | 2025-04-18 09:44 | US_ITS ---
PROCEDURE: ABD LIMITED W/ ELASTOGRAPHY REASON FOR EXAM: CIRRHOSIS, PORTAL HTN COMPARISON: Prior study dated August 01, 2024. TECHNIQUE: Right upper quadrant abdominal ultrasound. [place] ElastQ Imaging shear wave elastography for non-invasive assessment of liver tissue stiffness. Mao EPIQ Elite. FINDINGS: LIVER: Size: Unremarkable Length: 15.2 cm cm Echotexture: Coarsened Contour: Normal Lesions: None identified Elastography: EQI Med: 16.3 kPa EQI Med Ortiz: 2.32 m/s IQR/Med: 18 %* GALLBLADDER: Findings suggestive of a 4 mm x 3 mm x 3 mm gallbladder polyp. COMMON BILE DUCT: Dilated measuring up to 8.2 mm. . PANCREAS: Patient is status post pancreatic transplant. Mildly dilated pancreatic duct. Visualized portions of the right kidney are unremarkable. No right upper quadrant ascites. US/ABD Limited w/ Elastography IMPRESSION: SEVERE HEPATIC FIBROSIS / CIRRHOSIS Diffuse fatty infiltration of the liver. Small gallbladder polyp. Reference Values: SRU <1.37 m/s (5.7kPa): No to mild fibrosis 1.37 m/s - 2.2 m/s: Moderate to severe fibrosis >2.2 m/s (15kPa): Significant fibrosis / cirrhosis METAVIR Score F2 or higher: 1.34 m/s (5.7kPa) F3 or higher: 1.55 m/s (7.3kPa) F4: 1.80 m/s (10kPa) * If the IQR/Med is >30%, the variance in the measurements is a large and the a ccuracy of the measurement may be in question. Reading Location: [facility]
--- NOTE | 2025-04-18 09:44 | US_ITS ---
PROCEDURE: ABD LIMITED W/ ELASTOGRAPHY REASON FOR EXAM: CIRRHOSIS, PORTAL HTN COMPARISON: Prior study dated August 01, 2024. TECHNIQUE: Right upper quadrant abdominal ultrasound. [employer] ElastQ Imaging shear wave elastography for non-invasive assessment of liver tissue stiffness. [employer] EPIQ Elite. FINDINGS: LIVER: Size: Unremarkable Length: 15.2 cm cm Echotexture: Coarsened Contour: Normal Lesions: None identified Elastography: EQI Med: 16.3 kPa EQI Med Ortiz: 2.32 m/s IQR/Med: 18 %* GALLBLADDER: Findings suggestive of a 4 mm x 3 mm x 3 mm gallbladder polyp. COMMON BILE DUCT: Dilated measuring up to 8.2 mm. . PANCREAS: Patient is status post pancreatic transplant. Mildly dilated pancreatic duct. Visualized portions of the right kidney are unremarkable. No right upper quadrant ascites. US/ABD Limited w/ Elastography IMPRESSION: SEVERE HEPATIC FIBROSIS / CIRRHOSIS Diffuse fatty infiltration of the liver. Small gallbladder polyp. Reference Values: SRU <1.37 m/s (5.7kPa): No to mild fibrosis 1.37 m/s - 2.2 m/s: Moderate to severe fibrosis >2.2 m/s (15kPa): Significant fibrosis / cirrhosis METAVIR Score F2 or higher: 1.34 m/s (5.7kPa) F3 or higher: 1.55 m/s (7.3kPa) F4: 1.80 m/s (10kPa) * If the IQR/Med is >30%, the variance in the measurements is a large and the a ccuracy of the measurement may be in question. Reading Location: [facility]
[2025-04-18 11:30] LABS: Hematocrit 38.7 % (37-47); Hemoglobin 11.9 g/dL (12.0-15.0); Immature Granulocytes Count 0.040 X10^3/uL (0.0-0.0); Mean Corp Hgb Conc 30.7 g/dL (32-36); Mean Corpuscular Volume 95.3 fL (81-99); Mean Platelet Vol. 10.5 fl (6.2-12.0); NRBC Flagged by Analyzer 0 % (0-5); Platelet Count 192 K/mm3 (150-450); RBC Distribution Width CV 16.6 % (11.6-14.6); RBC Distribution Width SD 58.1 fl (35.1-43.9); Red Blood Count 4.06 M/mm3 (4.2-5.4); White Blood Count 6.5 K/mm3 (4.4-11.0)
[2025-04-18 11:31] LABS: Prothrombin Time (Protime)PT. 20.9 SECONDS (11.7-14.9)
[2025-04-18 11:58] LABS: Ammonia 25.8 umol/L (11-51)
[2025-04-18 12:24] LABS: AST(SGOT) 25 U/L (<=31); Alanine Aminotransfer ALT/SGPT 8 U/L (<=34); Albumin, Serum 3.5 g/dL (3.5-5.0); Alkaline Phosphatase 122 U/L (35-104); Anion Gap 15 (5-15); BUN 27 mg/dL (4-19); BUN/Creat Ratio 17.7 RATIO (10-20); Calcium,Total 9.7 mg/dL (7.6-11.0); Carbon Dioxide 21.8 mmol/L (21.0-32.0); Chloride 103 mmol/L (98-108); Cholesterol 150 mg/dL (<=200); Globulin 4.3 g/dL (2.2-4.2); Glucose 110 mg/dL (70-99); HIV Nonreactive (Nonreactive); Low Density Lipoprotein Calc. 72 mg/dL; Potassium 4.4 mmol/L (3.3-5.1); Triglycerides 105 mg/dL; Very Low Density Lipoprotein 21 mg/dL (5-40); cholesterol:hdl ratio screen 2.63
[2025-04-18 20:05] LABS: CRP 3.40 mg/L (0.0-3.0); LDH 236 U/L (84-246)
[2025-04-19 16:09] LABS: ANTINUCLEAR ANTIBODIES DIRECT Positive (Negative); Anti-Chromatin <0.2 AI (0.0-0.9); Anti-Jo <0.2 AI (0.0-0.9); Anti-dsDNA Ab 10 IU/mL (0-9); SJOGREN'S Anti-SS-A test 0.2 AI (0.0-0.9); SJOGREN'S Anti-SS-B test < 0.2 AI (0.0-0.9)
[2025-04-21 08:09] LABS: Anti-Smooth Muscle ABS 13 Units (0-19); Copper, Serum or Plasma 134 ug/dL (80-158); Cytoplasmic Ab (C-ANCA) <1:20 titer (Neg:<1:20); HEPATITIS B SURFACE AG Negative (Negative); Hep C Antibodies Non Reactive (Non Reactive); Perinuclear Ab (P-ANCA) <1:20 titer (Neg:<1:20)
== END | disposition home or self-care (01) ==
PROVIDERS: PCP Family Medicine Geriatric Medicine; Referring Provider Internal Medicine; Visit Provider Internal Medicine
DX: K74.60 Unspecified cirrhosis of liver (principal); I50.32 Chronic diastolic (congestive) heart failure; I11.0 Hypertensive heart disease with heart failure; E11.9 Type 2 diabetes mellitus without complications; I07.1 Rheumatic tricuspid insufficiency; R18.8 Other ascites; D69.6 Thrombocytopenia, unspecified
CPT/HCPCS: 36415; 76705; 76981; 80053; 80061; 80074; 82105; 82140; 82390; 82525; 83036; 83516; 83615; 85025; 85610; 85652; 86037; 86038; 86140; 86225; 86235; 86703

== ENCOUNTER 2025-04-26 10:30 | Outpatient (RCR) | payer MEDICARE, MEDICAID, SELFPAY ==
[2025-03-28 15:16] VITALS: BMI 31.2
[2025-04-19 11:03] VITALS: BP 73/48; PULSE 75; RESP 16; TEMP 36.5
--- NOTE | 2025-04-19 13:07 | PN.PCM_ITS ---
History of Present Illness Date of Service: 04/19/25 Chief Complaint: Right foot ulceration History of Wound: Miss Plummer is a 54 yo who was referred to the wound center by her PCP due to right foot ulceration. She has PMHx of left total nephrectomy due to renal cancer at the [facility], DM type II with peripheral polyneuropathy, hyperlipidemia, narcolepsy, SLE, HTN, chronic diastolic CHF, BRENDAN, anxiety, depression, fibromyalgia, CKD, stage III, Hx of bilateral buttock ulcerations previously treated at the wound care center, debility, TR s/p TT VR on warfarin, and recent diagnosis of cirrhosis of liver. She was previously seen in office by Dr. Escobar and was undergoing treatment with Nel and Betadine which was noted to be healing well. She did follow-up with her PCP Dr. Bowen who urged her for a referral to the wound care center. She has home health coming 2 times a week. History of diabetes mellitus, last A1c said to be 5.5%. Also history of lupus and renal transplant. She admits to a poor appetite. 10/26/24: Ms. Plummer presented with area of opening/ulcer between her right fourth and fifth toe. She states that there was a callus which she pulled on and subsequently developed that area of opening. It is noted that this area has reopened thus the referral back to the wound center for treatment. Currently denies N/V/F/chills. Denies further complaints. Subjective Subjective This is a 54-year-old female who returns to the wound care center today for continued care of fourth interdigital webspace wound of the right foot. Continues to change dressing daily. Denies constitutional symptoms. Denies further complaints. Objective Data Objective Data Vital Signs: Vital Signs Temp Pulse Resp BP 97.7 F L 75 16 73/48 L 04/19/25 11:03 04/19/25 11:03 04/19/25 11:03 04/19/25 11:03 Physical Exam Const alert, oriented x3 and no apparent distress General Appearance: cooperative HEENT normocephalic Eyes General Eye: normal appearance of both eyes Neck General: normal visual inspection Lymph Lymphatic: no lymphadenopathy noted and no lymphedema noted Resp normal respiratory effort Cardio regular rate and regular rhythm Extremity no calf tenderness Extremity Narrative: Bilateral lower extremity: Vascular: DP and PT pulses palpable. CFT is less than 4 seconds to digits. Normal temperature gradient. Hair growth is diminished to digits. Neurologic: Gross sensation intact. Protective sensation is diminished secondary to diabetic peripheral polyneuropathy. Musculoskeletal: Muscle strength 5 of 5 age-appropriate. Full, smooth, pain- free range of motion of the ankle joint, subtalar joint, midtarsal joint, and first MTPJ. No pain to palpation of calf. No pain to palpation of the fifth digit near ulceration site of right foot. Dermatologic: There is a full-thickness ulceration noted to the fourth interdigital webspace near the base of the fifth digit of the right foot with healthy granular layer and macerated border secondary to serous drainage. No signs of infection. Skin no rashes or lesions noted Neuro moves all extremities Debridement Note Debridement Note Wound debrided: Fourth webspace right foot Laterality: Right Wound Grade/Stage: Coates stage I Type of Debridement: Excisional debridement Anesthesia Used: 5% Lidocaine Gel Depth: Down to and including healthy tissue and in the subcutaneous layer Percentage of wound debrided: 100 Instrument Used: - (1 mm curette) Tissue Removed: Fibrous, devitalized subcutaneous, biofilm, slough Severity: Fat Layer Exposed Amount of bleeding with debridement: Mild Bleeding Controlled with: Compression and gauze Patient tolerated procedure: Patient tolerated procedure well Post-Debridement Measurements and Additional Note: Post-Debridement Measurements/Treatment - Nurse 1 - General Ulcer Assessment Start: 04/19/25 11:03 Freq: Status: Active Protocol: [email or web address] Activity Type Activity Date Activity User E-sign Co-sign Detail Recorded Client Recorded Date Recorded By Document 04/19/25 11:03 STACIE [id number] 04/19/25 11:11 DL 04/19/25 11:03 - Today's Visit Information Type of service Follow-up Visit (Physician/DURABILITY ENGINEER ) Arrival Mode Ambulatory Transfer Assistance None Patient Identification Verified (Name & Yes ) Patient Requires Transmission-Based No Precautions Vital Signs Temperature (97.8 F-99.1 F) 97.7 F L Temperature Source Temporal Pulse Rate (60-100) 75 Pulse Location Monitor Respiratory Rate (12-18) 16 Respiratory rate source Observation Blood Pressure (90/60-120/80) 73/48 L Blood Pressure Mean (mm Hg) 56 Source Monitor History Since Last Visit- (Skip if this is Patient's initial visit) Have you changed medications since your No last visit? Any new allergies or adverse reactions No Had a fall/change in ADL's that may No increase risk of falls Signs or symptoms of abuse and/or No neglect since last visit Have you been in the hospital since your No last visit? Has dressing in place as prescribed Yes Has compression in place as prescribed N/A Has offloadiing in place as prescribed N/A Experienced any changes in pain level or No management Pain Scale: 0-10 Numeric Is Patient Pain Free? Yes - Nurse 1 - General Ulcer Measurement Start: 04/19/25 11:03 Freq: Status: Active Protocol: Activity Type Activity Date Activity User E-sign Co-sign Detail Recorded Client Recorded Date Recorded By Document 04/19/25 11:03 DL [id number] 04/19/25 11:11 DL 04/19/25 11:03 Wound Center Nurse 1 6-right 4th webspace -Current Size (cm) - Length 0.5 -Current Size (cm) - Width 0.3 -Current Size (cm) - Depth 0.2 -Total Square Cm 0.15 -Exudate Amt None Present -Wound Margin Distinct, Outline Attached -Granulation Amt Small (1-33%) -Granulation Quality [place] -Necrosis Amt None Present (0 %) -Structure Exposed N/A -Texture (Dalila-wound Skin Appearance) Scarring -Moisture (Dalila-wound Skin Appearance) No Abnormality -Color (Dalila-wound Skin Appearance) No Abnormality -Temperature (Dalila-wound Skin No Abnormality Appearance) (Pt Warm) -Ulcer Cleansing Rinsed/ Irrigated with Saline -Foul Odor after Cleansing No -Anesthetic Used 5% Lidocaine Gel MARISEL - Nurse 2 - General Ulcer CM Notes Start: 04/19/25 11:03 Freq: Status: Active Protocol: Activity Type Activity Date Activity User E-sign Co-sign Detail Recorded Client Recorded Date Recorded By Document 04/19/25 11:29 DS [id number] 04/19/25 11:29 DS Edit Result 04/19/25 11:29 DS (1) [id number] 04/19/25 11:33 DS (1) 6-right 4th webspace - Correct Procedure => Yes - Procedure Performed No => Yes - Type of Procedure => Debridement - Clinical Debridement => Subcutaneous - Tissue Removed => Subcutaneous - Ulcer Cleansing => Rinsed/Irrigated => with Saline - Foul Odor after Cleansing => No - Bioengineered Tissue => No - Bleeding Controlled with => Pressure - Debridement - Subq, 1st 20sq cm => Yes 04/19/25 11:29 Wound Center Nurse 2 -Time 11:29 -Correct Patient Yes -Correct Side, Site, Position Yes -Correct Procedure Yes -Procedure Performed Yes -Type of Procedure Debridement -Clinical Debridement Subcutaneous -Tissue Removed Subcutaneous -Post Debridement (cm) - Length 0.2 -Post Debridement (cm) - Width 0.2 -Post Debridement (cm) - Depth 0.1 -Total Square (Post) (cm) 0.04 -Area of Debridement (cm) - Length 0.2 -Area of Debridement (cm) - Width 0.2 -Total Square (Area) (cm) 0.04 -Tunneling No -Undermining/Tunneling No -Circular Undermining No -Wound/Ulcer Outcome Not Healed -Ulcer Cleansing Rinsed/ Irrigated with Saline -Foul Odor after Cleansing No -Bioengineered Tissue No -Bleeding Controlled with Pressure -Debridement - Subq, 20sq cm Yes Pain Scale: 0-10 Numeric Is Patient Pain Free? Yes - Nurse 3 - General Ulcer D/C NN Start: 04/19/25 11:03 Freq: Status: Active Protocol: Activity Type Activity Date Activity User E-sign Co-sign Detail Recorded Client Recorded Date Recorded By Document 04/19/25 11:45 CP [id number] 04/19/25 11:46 CP 04/19/25 11:45 Wound Care Center Nurse 3 6-right 4th webspace -Ulcer Cleansing Rinsed/ Irrigated with Saline -Primary Dressing Applied Promogran Nel Matter -Other Dressing BETADINE -Primary Dressing Covered/Secured with Dry Gauze, Secured with Tape -Promogran Nel Matter 1 Pain Scale: 0-10 Numeric Is Patient Pain Free? Yes WC - Visit Discharge Discharge Condition Stable Ambulatory Status Ambulatory Transportation Private Auto Clinical Summary of Care Provided Yes Assessment/Plan Assessment/Plan (1) Non-pressure chronic ulcer of other part of right foot with fat layer exposed: CODE(S): L97.512 - Non-pressure chronic ulcer of other part of right foot with fat layer exposed (2) Diabetes mellitus with diabetic polyneuropathy: CODE(S): E11.42 - Type 2 diabetes mellitus with diabetic polyneuropathy (3) Type 2 diabetes mellitus with foot ulcer: CODE(S): E11.621 - Type 2 diabetes mellitus with foot ulcer; L97.509 - Non-pressure chronic ulcer of other part of unspecified foot with unspecified severity (4) Debility: CODE(S): R53.81 - Other malaise PLAN: Plan Patient seen and evaluated Predebridement measurement 0.2 cm x 0.2 cm x 0.1 cm Postdebridement measurement 0.2 cm x 0.2 cm x 0.1 cm Ulcerative site did undergo debridement as noted in the clinical panel above. No change in ulceration site versus previous visit. Discussed possibility of no change in progression at next visit following cleansing with Dakin's DPC would be performed of the site. Site was painted with Betadine and Nel was applied with dry sterile dressing. She is to continue changing the dressing daily. Discussed continued strict glycemic control. Current A1c 5.5%. Discussed adequate protein intake to aid in wound healing. Christ supplementation was recommended. Discussed importance of continued daily foot checks as she is diabetic. Encouraged to always wear shoe gear when ambulating and to never ambulate barefoot, this does include socks. She will continue to follow with PCP and lock setter for management of her diabetes but currently in good standing. Discussed signs and symptoms of infection. Discussed if she notices any increasing redness around the fifth toe/ulcerative site that moves up onto the foot or up the leg, purulent drainage from the wound site, increasing foul odor from the wound, or if she experiences fever greater than 101 degree accompanied by nausea, vomiting, chills of these are signs of a progressing infection and she should report to the ED for IV antibiotics and for further evaluation. She is understanding of this today. The following work up and care recommendations were made: Dressing: Betadine to the ulcerative site, Nel to ulcerative base, dry sterile dressing. Change dressing daily Wash: Soap and water Tissue growth optimization: Nel Offload: None Vascular: DP and PT pulses palpable with adequate cap fill time. Vascular status not impacting healing at this time. Edema: None Infection: No signs of infection Pain: May take [id number] Tylenol as needed for discomfort. Host factors: DM type II, debility, HTN, hyperlipidemia, cirrhosis of liver, CKD stage III, SLE, fibromyalgia, CHF, all Impact healing status I answered all the patient's questions. To return to the wound healing center in 1 week or call sooner if the patient has any questions or concerns.
[2025-04-26 10:22] VITALS: BP 106/77; PULSE 111; RESP 18; TEMP 36.6
--- NOTE | 2025-04-26 13:01 | PN.PCM_ITS ---
History of Present Illness Date of Service: 04/26/25 Chief Complaint: Right foot ulceration History of Wound: Miss Plummer is a 54 yo who was referred to the wound center by her PCP due to right foot ulceration. She has PMHx of left total nephrectomy due to renal cancer at the [facility], DM type II with peripheral polyneuropathy, hyperlipidemia, narcolepsy, SLE, HTN, chronic diastolic CHF, BRENDAN, anxiety, depression, fibromyalgia, CKD, stage III, Hx of bilateral buttock ulcerations previously treated at the wound care center, debility, TR s/p TT VR on warfarin, and recent diagnosis of cirrhosis of liver. She was previously seen in office by Dr. Escobar and was undergoing treatment with Nel and Betadine which was noted to be healing well. She did follow-up with her PCP Dr. Bowen who urged her for a referral to the wound care center. She has home health coming 2 times a week. History of diabetes mellitus, last A1c said to be 5.5%. Also history of lupus and renal transplant. She admits to a poor appetite. 10/26/24: Ms. Plummer presented with area of opening/ulcer between her right fourth and fifth toe. She states that there was a callus which she pulled on and subsequently developed that area of opening. It is noted that this area has reopened thus the referral back to the wound center for treatment. Currently denies N/V/F/chills. Denies further complaints. Subjective Subjective This is a 54-year-old female who returns to the wound care center today for continued care of fourth interdigital webspace wound of the right foot. Continues to change dressing daily. Reports wound has not changed. Denies constitutional symptoms. Denies further complaints. Objective Data Objective Data Vital Signs: Vital Signs Temp Pulse Resp BP 97.8 F 111 H 18 106/77 04/26/25 10:22 04/26/25 10:22 04/26/25 10:22 04/26/25 10:22 Physical Exam Const alert, oriented x3 and no apparent distress General Appearance: cooperative HEENT normocephalic Eyes General Eye: normal appearance of both eyes Neck General: normal visual inspection Lymph Lymphatic: no lymphadenopathy noted and no lymphedema noted Resp normal respiratory effort Cardio regular rate and regular rhythm Extremity no calf tenderness Extremity Narrative: Bilateral lower extremity: Vascular: DP and PT pulses palpable. CFT is less than 4 seconds to digits. Normal temperature gradient. Hair growth is diminished to digits. Neurologic: Gross sensation intact. Protective sensation is diminished secondary to diabetic peripheral polyneuropathy. Musculoskeletal: Muscle strength 5 of 5 age-appropriate. Full, smooth, pain- free range of motion of the ankle joint, subtalar joint, midtarsal joint, and first MTPJ. No pain to palpation of calf. No pain to palpation of the fifth digit near ulceration site of right foot. Dermatologic: There is a full-thickness ulceration noted to the fourth interdigital webspace near the base of the fifth digit of the right foot with healthy granular layer and macerated border secondary to serous drainage. No signs of infection. Skin no rashes or lesions noted Neuro moves all extremities Debridement Note Debridement Note Post-Debridement Measurements and Additional Note: Post-Debridement Measurements/Treatment - Nurse 1 - General Ulcer Assessment Start: 04/19/25 11:03 Freq: Status: Active Protocol: .KALEYEXLalita Activity Type Activity Date Activity User E-sign Co-sign Detail Recorded Client Recorded Date Recorded By Document 04/19/25 11:03 DL [id number] 04/19/25 11:11 DL Document 04/26/25 10:22 DL [id number] 04/26/25 10:27 DL 04/19/25 04/26/25 11:03 10:22 - Today's Visit Information Type of service Follow-up Visit Follow-up Visit (Physician/QUOTE CLERK (Physician/QUOTE CLERK ) ) Arrival Mode Ambulatory Ambulatory Transfer Assistance None None Patient Identification Verified (Name & Yes Yes ) Patient Requires Transmission-Based No No Precautions Finger Stick Blood Sugar(mg/dl) (if 120 indicated): Vital Signs Temperature (97.8 F-99.1 F) 97.7 F L 97.8 F Temperature Source Temporal Temporal Pulse Rate (60-100) 75 111 H Pulse Location Monitor Monitor Respiratory Rate (12-18) 16 18 Respiratory rate source Observation Observation Blood Pressure (90/60-120/80) 73/48 L 106/77 Blood Pressure Mean (mm Hg) 56 86 Source Monitor Monitor History Since Last Visit- (Skip if this is Patient's initial visit) Have you changed medications since your No No last visit? Any new allergies or adverse reactions No No Had a fall/change in ADL's that may No No increase risk of falls Signs or symptoms of abuse and/or No No neglect since last visit Have you been in the hospital since your No No last visit? Has dressing in place as prescribed Yes Yes Has compression in place as prescribed N/A N/A Has offloadiing in place as prescribed N/A N/A Experienced any changes in pain level or No No management Pain Scale: 0-10 Numeric Is Patient Pain Free? Yes Yes WC - Nurse 1 - General Ulcer Measurement Start: 04/19/25 11:03 Freq: Status: Active Protocol: Activity Type Activity Date Activity User E-sign Co-sign Detail Recorded Client Recorded Date Recorded By Document 04/19/25 11:03 DL [id number] 04/19/25 11:11 DL Document 04/26/25 10:22 DL [id number] 04/26/25 10:27 DL 04/19/25 04/26/25 11:03 10:22 Wound Center Nurse 1 6-right 4th webspace -Current Size (cm) - Length 0.5 0.6 -Current Size (cm) - Width 0.3 0.3 -Current Size (cm) - Depth 0.2 0.4 -Total Square Cm 0.15 0.18 -Photo Taken Yes -Exudate Amt None Present Small -Exudate Type Serosanguineous -Wound Margin Distinct, Distinct, Outline Outline Attached Attached -Granulation Amt Small (1-33%) Small (1-33%) -Granulation Quality [place] -Necrosis Amt None Present (0 Small (1-33%) %) -Necrotic Tissue Type Adherent Slough -Structure Exposed N/A N/A -Texture (Dalila-wound Skin Appearance) Scarring Scarring -Moisture (Dalila-wound Skin Appearance) No Abnormality Maceration -Color (Dalila-wound Skin Appearance) No Abnormality No Abnormality -Temperature (Dalila-wound Skin No Abnormality No Abnormality Appearance) (Pt Warm) (Pt Warm) -Tenderness on Palpation (Dalila-wound No Skin Appearance) -Ulcer Cleansing Rinsed/ Rinsed/ Irrigated with Irrigated with Saline Saline -Foul Odor after Cleansing No No -Anesthetic Used 5% Lidocaine 5% Lidocaine Gel Gel WC - Nurse 2 - General Ulcer CM Notes Start: 04/19/25 11:03 Freq: Status: Active Protocol: Activity Type Activity Date Activity User E-sign Co-sign Detail Recorded Client Recorded Date Recorded By Document 04/19/25 11:29 DS [id number] 04/19/25 11:29 DS Edit Result 04/19/25 11:29 DS (1) [id number] 04/19/25 11:33 DS Document 04/26/25 11:50 BMF [id number] 04/26/25 12:04 BMF (1) 6-right 4th webspace - Correct Procedure => Yes - Procedure Performed No => Yes - Type of Procedure => Debridement - Clinical Debridement => Subcutaneous - Tissue Removed => Subcutaneous - Ulcer Cleansing => Rinsed/Irrigated => with Saline - Foul Odor after Cleansing => No - Bioengineered Tissue => No - Bleeding Controlled with => Pressure - Debridement - Subq, 1st 20sq cm => Yes 04/19/25 04/26/25 11:29 11:50 Wound Center Nurse 2 6-right 4th webspace -Time 11:29 11:50 -Correct Patient Yes Yes -Correct Side, Site, Position Yes Yes -Correct Procedure Yes Yes -Procedure Performed Yes Yes -Type of Procedure Debridement Debridement -Clinical Debridement Subcutaneous Subcutaneous -Tissue Removed Subcutaneous Subcutaneous -Post Debridement (cm) - Length 0.2 0.2 -Post Debridement (cm) - Width 0.2 0.2 -Post Debridement (cm) - Depth 0.1 0.1 -Total Square (Post) (cm) 0.04 0.04 -Area of Debridement (cm) - Length 0.2 0.2 -Area of Debridement (cm) - Width 0.2 0.2 -Total Square (Area) (cm) 0.04 0.04 -Tunneling No No -Undermining/Tunneling No No -Circular Undermining No No -Wound/Ulcer Outcome Not Healed Not Healed -Ulcer Cleansing Rinsed/ Rinsed/ Irrigated with Irrigated with Saline Saline -Foul Odor after Cleansing No No -Bioengineered Tissue No No -Injectable Lidocaine w/ Epi (%) 1 -Injectable Lidocaine w/ Epi (mls) 4 -Bleeding Controlled with Pressure Pressure -Treatment Response Procedure Tolerated Well -Debridement - Subq, 1st 20sq cm Yes Yes Pain Scale: 0-10 Numeric Is Patient Pain Free? Yes Yes WC - Nurse 3 - General Ulcer D/C NN Start: 04/19/25 11:03 Freq: Status: Active Protocol: Activity Type Activity Date Activity User E-sign Co-sign Detail Recorded Client Recorded Date Recorded By Document 04/19/25 11:45 CP [id number] 04/19/25 11:46 CP Document 04/26/25 12:21 DL [id number] 04/26/25 12:22 DL 04/19/25 04/26/25 11:45 12:21 Wound Care Center Nurse 3 6-right 4th webspace -Ulcer Cleansing Rinsed/ Not Cleansed Irrigated with Saline -Primary Dressing Applied Promogran NonAdherent Nel Matter Contact Layer -Other Dressing BETADINE betadine -Primary Dressing Covered/Secured with Dry Gauze, Dry Gauze & Secured with Roll Gauze, Tape Secured with Tape -Other Covering Sutures today -Promogran Nel Matter 1 Treatment Response Procedure Tolerated Well Pain Scale: 0-10 Numeric Is Patient Pain Free? Yes Yes WC - Visit Discharge Discharge Condition Stable Stable Ambulatory Status Ambulatory Ambulatory Transportation Private Auto Private Auto Clinical Summary of Care Provided Yes Assessment/Plan Assessment/Plan (1) Non-pressure chronic ulcer of other part of right foot with fat layer exposed: CODE(S): L97.512 - Non-pressure chronic ulcer of other part of right foot with fat layer exposed (2) Diabetes mellitus with diabetic polyneuropathy: CODE(S): E11.42 - Type 2 diabetes mellitus with diabetic polyneuropathy (3) Type 2 diabetes mellitus with foot ulcer: CODE(S): E11.621 - Type 2 diabetes mellitus with foot ulcer; L97.509 - Non-pressure chronic ulcer of other part of unspecified foot with unspecified severity (4) Debility: CODE(S): R53.81 - Other malaise PLAN: Plan Patient seen and evaluated Predebridement measurement 0.2 cm x 0.2 cm x 0.1 cm Postdebridement measurement 0.2 cm x 0.2 cm x 0.1 cm Ulcerative site did undergo debridement as noted in the clinical panel above. No change in ulceration site versus previous visit. Due to no change in the ulceration site following debridement site was cleansed with Dakin soaked and following appropriate rest period a delayed primary closure of the wound ([id number]) site was performed utilizing 3-0 Prolene with 4 simple interrupted sutures placed. Debridement followed by Dakin's cleanse/soak was performed separate to delayed closure to ensure no foreign material present to allow for wound closure. Wound closure essential for non-healing wound secondary to location of the wound and risk of infection in already medically compromised patient. Site was dressed with Betadine Adaptic and dry sterile dressing. She is to leave dressings in place. Dressings to remain clean, dry, and intact to the right foot. Will ambulate in surgical shoe only. Discussed continued strict glycemic control. Current A1c 5.5%. Discussed adequate protein intake to aid in wound healing. Christ supplementation was recommended. Discussed importance of continued daily foot checks as she is diabetic. Encouraged to always wear shoe gear when ambulating and to never ambulate barefoot, this does include socks. She will continue to follow with PCP and pest control chemical technician for management of her diabetes but currently in good standing. Discussed signs and symptoms of infection. Discussed if she notices any increasing redness around the fifth toe/ulcerative site that moves up onto the foot or up the leg, purulent drainage from the wound site, increasing foul odor from the wound, or if she experiences fever greater than 101 degree accompanied by nausea, vomiting, chills of these are signs of a progressing infection and adrian arriaga should report to the ED for IV antibiotics and for further evaluation. She is understanding of this today. The following work up and care recommendations were made: Dressing: Betadine Adaptic to the suture site and dressed with dry sterile dressing. Do not change dressing. Keep dressings clean, dry, and intact to the right foot. Wash: Do not get wet Tissue growth optimization: None Offload: Surgical shoe right foot Vascular: DP and PT pulses palpable with adequate cap fill time. Vascular status not impacting healing at this time. Edema: None Infection: No signs of infection Pain: May take [id number] Tylenol as needed for discomfort. Host factors: DM type II, debility, HTN, hyperlipidemia, cirrhosis of liver, CKD stage III, SLE, fibromyalgia, CHF, all Impact healing status I answered all the patient's questions. To return to the wound healing center in 1 week or call sooner if the patient has any questions or concerns.
== END 2025-05-13 23:59 | disposition home or self-care (01) ==
LOC: WC 10:30
PROVIDERS: PCP Family Medicine Geriatric Medicine; Referring Provider Family Medicine Geriatric Medicine; Visit Provider Student in an Organized Health Care Education/Training Program
DX: E11.621 Type 2 diabetes mellitus with foot ulcer (principal); L97.512 Non-pressure chronic ulcer of other part of right foot with fat layer exposed; K74.60 Unspecified cirrhosis of liver; I13.0 Hypertensive heart and chronic kidney disease with heart failure and stage 1 through stage 4 chronic kidney disease, or unspecified chronic kidney disease; I50.32 Chronic diastolic (congestive) heart failure; M32.9 Systemic lupus erythematosus, unspecified; E11.22 Type 2 diabetes mellitus with diabetic chronic kidney disease; E11.42 Type 2 diabetes mellitus with diabetic polyneuropathy; N18.30 Chronic kidney disease, stage 3 unspecified; G47.33 Obstructive sleep apnea (adult) (pediatric); G47.419 Narcolepsy without cataplexy; R53.81 Other malaise; E78.5 Hyperlipidemia, unspecified; F41.9 Anxiety disorder, unspecified; M79.7 Fibromyalgia; Z90.5 Acquired absence of kidney
CPT/HCPCS: 11042; 99213; G0463

== ENCOUNTER → 2025-05-16 | Outpatient (CLI) | payer MEDICARE, MEDICAID, SELFPAY ==
[2025-03-28 15:16] VITALS: BMI 31.2
[2025-05-16 10:59] LABS: Mucous, Urine 0 SEEN /hpf (<or=2+); Red Blood Cells-Urine 0 SEEN /hpf (0-5); Squamous Epithelial Cells - UA 0 SEEN /hpf (5-10)
[2025-05-16 11:22] LABS: Color, Urine Yellow (Yellow); Glucose, Dipstick 1000 mg/dl (Normal); Ketone-Dipstick Negative (Negative); Leukocyte Esterase-Dipstick 500 /ul (Negative); Nitrite-Dipstick Positive (Negative); Occult Blood-Urine 250 /ul (Negative); Protein-Dipstick 30 mg/dl (Negative); Specific Gravity, Urine 1.010 (1.002-1.030); Urine Bilirubin Dipstick Negative (Negative)
[2025-05-16 11:42] LABS: Transitional Epithelial - Ur 0-5 SEEN /hpf (0-5)
== END | disposition home or self-care (01) ==
LOC: POLAB3 10:51
PROVIDERS: PCP Family Medicine Geriatric Medicine; Visit Provider Family Medicine Geriatric Medicine
DX: N39.0 Urinary tract infection, site not specified (principal)
CPT/HCPCS: 81001; 87077; 87086; 87088; 87186

== ENCOUNTER 2025-05-31 10:22 | Outpatient (RCR) | payer MEDICARE, MEDICAID, SELFPAY ==
[2025-05-29 14:57] VITALS: BMI 31.2
[2025-05-31 10:37] VITALS: BP 128/99; PULSE 130; RESP 16; TEMP 36.4
--- NOTE | 2025-05-31 12:25 | PCM.WC.PN ---
History of Present Illness Date of Service: 05/31/25 Chief Complaint: Right foot ulceration History of Wound: Miss Plummer is a 54 yo who was referred to the wound center by her PCP due to right foot ulceration. She has PMHx of left total nephrectomy due to renal cancer at the [facility], DM type II with peripheral polyneuropathy, hyperlipidemia, narcolepsy, SLE, HTN, chronic diastolic CHF, BRENDAN, anxiety, depression, fibromyalgia, CKD, stage III, Hx of bilateral buttock ulcerations previously treated at the wound care center, debility, TR s/p TT VR on warfarin, and recent diagnosis of cirrhosis of liver. She was previously seen in office by Dr. Escobar and was undergoing treatment with Nel and Betadine which was noted to be healing well. She did follow-up with her PCP Dr. Bowen who urged her for a referral to the wound care center. She has home health coming 2 times a week. History of diabetes mellitus, last A1c said to be 5.5%. Also history of lupus and renal transplant. She admits to a poor appetite. 10/26/24: Ms. Plummer presented with area of opening/ulcer between her right fourth and fifth toe. She states that there was a callus which she pulled on and subsequently developed that area of opening. It is noted that this area has reopened thus the referral back to the wound center for treatment. Currently denies N/V/F/chills. Denies further complaints. Subjective Subjective This is a 54-year-old female who returns to the wound care center today for continued care of fourth interdigital webspace wound of the right foot. States that the wound has fully healed. Reports that her stitching did fall out as she has not been seen over the last 5 weeks. Denies constitutional symptoms. Denies further complaints. Objective Data Objective Data Vital Signs: Vital Signs Temp Pulse Resp BP 97.5 F L 130 H 16 128/99 H 05/31/25 10:37 05/31/25 10:37 05/31/25 10:37 05/31/25 10:37 Physical Exam Const alert, oriented x3 and no apparent distress General Appearance: cooperative HEENT normocephalic Eyes General Eye: normal appearance of both eyes Neck General: normal visual inspection Lymph Lymphatic: no lymphadenopathy noted and no lymphedema noted Resp normal respiratory effort Cardio regular rate and regular rhythm Extremity no calf tenderness Extremity Narrative: Extremity Narrative: Bilateral lower extremity: Vascular: DP and PT pulses palpable. CFT is less than 4 seconds to digits. Normal temperature gradient. Hair growth is diminished to digits. Neurologic: Gross sensation intact. Protective sensation is diminished secondary to diabetic peripheral polyneuropathy. Musculoskeletal: Muscle strength 5 of 5 age-appropriate. Full, smooth, pain-free range of motion of the ankle joint, subtalar joint, midtarsal joint, and first MTPJ. No pain to palpation of calf. No pain to palpation of the fifth digit near ulceration site of right foot. Dermatologic: Area of full-thickness ulceration to the fourth interdigital webspace near the base of the fifth digit of the right foot has healed. No signs of infection. Skin no rashes or lesions noted Neuro moves all extremities Debridement Note Debridement Note No debridement was completed: No debridement was completed today Post-Debridement Measurements and Additional Note: Post-Debridement Measurements/Treatment MARISEL - Nurse 1 - General Ulcer Assessment Start: 05/31/25 10:35 Freq: Status: Active Protocol: MARIPOSA Activity Type Activity Date Activity User E-sign Co-sign Detail Recorded Client Recorded Date Recorded By Document 05/31/25 10:37 DL [id number] 05/31/25 10:42 DL 05/31/25 10:37 - Today's Visit Information Type of service Follow-up Visit (Physician/AIR BATTLE MANAGER ) Arrival Mode Ambulatory Transfer Assistance None Patient Identification Verified (Name & Yes ) Patient Requires Transmission-Based No Precautions Vital Signs Temperature (97.8 F-99.1 F) 97.5 F L Temperature Source Temporal Pulse Rate (60-100) 130 H Pulse Location Monitor Respiratory Rate (12-18) 16 Respiratory rate source Observation Blood Pressure (90/60-120/80) 128/99 H Blood Pressure Mean (mm Hg) 108 Source Monitor History Since Last Visit- (Skip if this is Patient's initial visit) Have you changed medications since your No last visit? Any new allergies or adverse reactions No Had a fall/change in ADL's that may No increase risk of falls Signs or symptoms of abuse and/or No neglect since last visit Have you been in the hospital since your No last visit? Has dressing in place as prescribed Yes Has compression in place as prescribed No Has offloadiing in place as prescribed No Experienced any changes in pain level or No management Pain Scale: 0-10 Numeric Is Patient Pain Free? Yes WC - Nurse 1 - General Ulcer Measurement Start: 05/31/25 10:35 Freq: Status: Active Protocol: Activity Type Activity Date Activity User E-sign Co-sign Detail Recorded Client Recorded Date Recorded By Document 05/31/25 10:37 STACIE [id number] 05/31/25 10:42 STACIE 05/31/25 10:37 Wound Center Nurse 1 6-right 4th webspace -Current Size (cm) - Length 0 -Current Size (cm) - Width 0 -Current Size (cm) - Depth 0 -Total Square Cm 0 -Photo Taken Yes -Exudate Amt None Present -Wound Margin Flat & Intact -Granulation Amt Large (67-100%) -Granulation Quality Pale -Necrosis Amt None Present (0 %) -Structure Exposed N/A -Texture (Dalila-wound Skin Appearance) Scarring -Moisture (Dalila-wound Skin Appearance) No Abnormality -Color (Dalila-wound Skin Appearance) No Abnormality -Temperature (Dalila-wound Skin No Abnormality Appearance) (Pt Warm) -Tenderness on Palpation (Dalila-wound No Skin Appearance) -Ulcer Cleansing Soap and Water -Foul Odor after Cleansing No WC - Nurse 2 - General Ulcer CM Notes Start: 05/31/25 10:35 Freq: Status: Active Protocol: Activity Type Activity Date Activity User E-sign Co-sign Detail Recorded Client Recorded Date Recorded By Document 05/31/25 10:47 [facility] [id number] 05/31/25 10:47 [facility] 05/31/25 10:47 Wound Center Nurse 2 -Time 10:47 -Procedure Performed No -Post Debridement (cm) - Length 0 -Post Debridement (cm) - Width 0 -Post Debridement (cm) - Depth 0 -Total Square (Post) (cm) 0 -Area of Debridement (cm) - Length 0 -Area of Debridement (cm) - Width 0 -Total Square (Area) (cm) 0 -Wound/Ulcer Outcome Healed- Epithelialized -Bleeding Controlled with NA Pain Scale: 0-10 Numeric Is Patient Pain Free? Yes WC - Nurse 3 - General Ulcer D/C NN Start: 05/31/25 10:35 Freq: Status: Active Protocol: Activity Type Activity Date Activity User E-sign Co-sign Detail Recorded Client Recorded Date Recorded By Document 05/31/25 10:48 [facility] [id number] 05/31/25 10:48 [facility] 05/31/25 10:48 Is Patient Pain Free? Yes WC - Visit Discharge Discharge Condition Stable Ambulatory Status Ambulatory Transportation Private Auto Notes: healed Assessment/Plan Assessment/Plan (1) Non-pressure chronic ulcer of other part of right foot with fat layer exposed: CODE(S): L97.512 - Non-pressure chronic ulcer of other part of right foot with fat layer exposed (2) Type 2 diabetes mellitus with foot ulcer: CODE(S): E11.621 - Type 2 diabetes mellitus with foot ulcer; L97.509 - Non-pressure chronic ulcer of other part of unspecified foot with unspecified severity (3) Diabetes mellitus with diabetic polyneuropathy: CODE(S): E11.42 - Type 2 diabetes mellitus with diabetic polyneuropathy (4) Debility: CODE(S): R53.81 - Other malaise PLAN: Plan Patient seen and evaluated Predebridement measurement healed Postdebridement measurement healed Ulceration site has fully healed and her sutures have fallen out as she has not been seen over the last 5 weeks. Patient denies any issues while the stitching was in and denied issues after they have fallen out. Continues ambulating in shoe gear. Discussed continued strict glycemic control. Current A1c 5.5%. Discussed importance of continued daily foot checks as she is diabetic. Encouraged to always wear shoe gear when ambulating and to never ambulate barefoot, this does include socks. She will continue to follow with PCP and nutrition associate for management of her diabetes but currently in good standing. The following work up and care recommendations were made: Dressing: None Wash: Soap and water Tissue growth optimization: None Offload: Shoe gear Vascular: DP and PT pulses palpable with adequate cap fill time. Vascular status not impacting healing at this time. Edema: None Infection: No signs of infection Pain: May take dero-aus-wxhtaki Tylenol as needed for discomfort. Host factors: DM type II, debility, HTN, hyperlipidemia, cirrhosis of liver, CKD stage III, SLE, fibromyalgia, CHF, all Impact healing status At this time with wounds healed she is being discharged from the wound care center I answered all the patient's questions. To return to the wound healing center as needed or call sooner if the patient has any questions or concerns.
--- NOTE | 2025-06-01 09:50 | WC ---
PHOTO-RIGHT 4TH /5TH TOE WEB 05/31/25
== END 2025-06-12 23:59 | disposition home or self-care (01) ==
LOC: WC 10:22
PROVIDERS: PCP Family Medicine Geriatric Medicine; Referring Provider Family Medicine Geriatric Medicine; Visit Provider Student in an Organized Health Care Education/Training Program
DX: Z09 Encounter for follow-up examination after completed treatment for conditions other than malignant neoplasm (principal); I13.0 Hypertensive heart and chronic kidney disease with heart failure and stage 1 through stage 4 chronic kidney disease, or unspecified chronic kidney disease; I50.32 Chronic diastolic (congestive) heart failure; E11.22 Type 2 diabetes mellitus with diabetic chronic kidney disease; E11.42 Type 2 diabetes mellitus with diabetic polyneuropathy; N18.30 Chronic kidney disease, stage 3 unspecified; E78.5 Hyperlipidemia, unspecified
CPT/HCPCS: 99212; G0463

== ENCOUNTER → 2025-06-07 | Outpatient (CLI) | payer MEDICARE, MEDICAID, SELFPAY ==
[2025-05-29 14:57] VITALS: BMI 31.2
[2025-06-07 14:40] LABS: Hematocrit 42.1 % (37-47); Hemoglobin 13.3 g/dL (12.0-15.0); Immature Granulocytes Count 0.030 X10^3/uL (0.0-0.0); Mean Corp Hgb Conc 31.6 g/dL (32-36); Mean Corpuscular Volume 88.8 fL (81-99); Mean Platelet Vol. 9.7 fl (6.2-12.0); NRBC Flagged by Analyzer 0 % (0-5); Platelet Count 238 K/mm3 (150-450); RBC Distribution Width CV 14.8 % (11.6-14.6); RBC Distribution Width SD 48.1 fl (35.1-43.9); Red Blood Count 4.74 M/mm3 (4.2-5.4); White Blood Count 7.4 K/mm3 (4.4-11.0)
[2025-06-07 15:04] LABS: Mucous, Urine 0 SEEN /hpf (<or=2+); Red Blood Cells-Urine 0 SEEN /hpf (0-5)
[2025-06-07 15:16] LABS: Color, Urine Yellow (Yellow); Glucose, Dipstick 1000 mg/dl (Normal); Ketone-Dipstick Negative (Negative); Leukocyte Esterase-Dipstick Negative /ul (Negative); Nitrite-Dipstick Negative (Negative); Occult Blood-Urine Negative /ul (Negative); Protein-Dipstick 30 mg/dl (Negative); Specific Gravity, Urine 1.015 (1.002-1.030); Urine Bilirubin Dipstick Negative (Negative)
--- NOTE | 2025-06-07 15:20 | RAD_ITS ---
PROCEDURE: L/S SPINE MIN 4 VIEWS 06/07/2025 REASON FOR EXAM: Low back pain TECHNIQUE: Procedure Code: RADSPLS Modality: DX Procedure: L/S SPINE MIN 4 VIEWS COMPARISON: None FINDINGS: No significant scoliotic curvature noted in the AP view. There is anatomic alignment of the lumbar spine in the lateral view. Mild disc space narrowing throughout the lumbar spine. No acute or chronic fracture pars defect or spondylolisthesis. RAD/L/S Spine Min 4 Views IMPRESSION: Mild degenerative changes, no acute findings No demonstrated scoliosis on the AP view Reading Location: [id number]
[2025-06-07 15:22] LABS: Squamous Epithelial Cells - UA 0-5 SEEN /hpf (5-10)
[2025-06-07 16:03] LABS: Cholesterol 105 mg/dL (<=200); Low Density Lipoprotein Calc. 32 mg/dL; Triglycerides 237 mg/dL; Very Low Density Lipoprotein 47 mg/dL (5-40); cholesterol:hdl ratio screen 4.13
[2025-06-07 16:04] LABS: AST(SGOT) 33 U/L (<=31); Alanine Aminotransfer ALT/SGPT 6 U/L (<=34); Albumin, Serum 3.0 g/dL (3.5-5.0); Alkaline Phosphatase 104 U/L (35-104); Anion Gap 12 (5-15); BUN 25 mg/dL (4-19); BUN/Creat Ratio 18.2 RATIO (10-20); Calcium,Total 9.3 mg/dL (7.6-11.0); Carbon Dioxide 18.7 mmol/L (21.0-32.0); Chloride 106 mmol/L (98-108); Globulin 3.3 g/dL (2.2-4.2); Glucose 88 mg/dL (70-99); Potassium 4.4 mmol/L (3.3-5.1)
[2025-06-07 22:08] LABS: Xtra Tube Kwok EXTRA TUBE
== END | disposition home or self-care (01) ==
PROVIDERS: PCP Family Medicine Geriatric Medicine; Referring Provider Clinical Nurse Specialist Adult Health; Visit Provider Clinical Nurse Specialist Adult Health
DX: E78.5 Hyperlipidemia, unspecified (principal); E11.65 Type 2 diabetes mellitus with hyperglycemia; I10 Essential (primary) hypertension; E03.9 Hypothyroidism, unspecified; N39.0 Urinary tract infection, site not specified; M51.369 Other intervertebral disc degeneration, lumbar region without mention of lumbar back pain or lower extremity pain
CPT/HCPCS: 36415; 72110; 80053; 80061; 81001; 83036; 84443; 85025; 87086; 87088

== ENCOUNTER 2025-06-28 13:30 | Outpatient (RCR) | payer MEDICARE, MEDICAID, SELFPAY ==
[2024-07-19 10:16] VITALS: BMI 31.2
--- NOTE | 2025-01-23 15:33 | HP.PTEVAL_ITS ---
Patient's Visit Information Visit Information Visit Information: PAVITHRA PAINTER is a 54 year old F referred to Physical Therapy by Dr. Mitchell Bowen MD with a diagnosis of Debility and abnormal gait. Date of Evaluation: 01/23/25 Physical Therapist: Mark Noguera DPT Visit Plan Frequency: 2x /Week Duration: 6 Weeks Plan: 1) BLE strengthening 2) nustep for endurance 3) progress dynamic stability/LE strength 4) both home and gym exercises pending what she will continue after PT. Subjective Subjective: Pt. is here today for her initial evaluation with diagnosis of debility and gait abnormality. Pt. reports having a kidney removed in Aug of last year then a sinus surgery earlier this year. She is to have a hernia repair this March as well. Pt. reports a generalized weakening for the past 6 months. Pt. reports having difficulty with carrying objects, difficulty with ADLs, especially IADLs. Pt. does have an aide whom help with the cleaning and groceries. Pt is hopeful to increase her strength and get back to all ADLs with increased tolerance. History of B hip replacement with R hip revision in 2018'. Pain B hip: Pain Intensity (Out of 10): 6 Pain Intensity Range: 3 and 7 Objective Objective: {OSTURE: Pt. has a general flexed posture in stance. Wide CORINA. PALPATION: Pt. has mild increase in pain at B anterior hips. No pain in distal LEs. NEURO: Pt. has normal DTR of BLEs and has normal sensation in BLEs. She does report some distal neuropathy in her feet. ROM: Pt. has mild increase in B hip pain with flexion to ~100deg. Normal HS length noted. MMT: RLE: knee: ext 11.9#, flex 15.6#; hip: flex 11.7# , abd 13.4# LLE: knee: ext 13.2#, flex 15.4#; hip: flexion 8.8#, abd 11.6# GAIT: Pt. ambulates without AD. Pt. has decreased step length bilaterally. Pt. has increased B hip ER. TU.8sec no AD Balance/Special Test Scores Functional Gait Assessment Score: 18 % Disability: 40.0000 Lower Extremity Functional Score: 18 TUG Test Time Seconds: 15.8 30 Second Chair Rise Test Seconds: 11 Goals Goal 1:: LTG: Pt. to be I with HEP. Goal Time Frame: 4-6 Weeks Goal 2:: LTG: Pt. to have increased BLE strength by 10# throughout. Goal Time Frame: 4-6 Weeks Goal 3:: LTG: Pt. to complete 30sec sit to stand test with at least 15 reps. Goal Time Frame: 4-6 Weeks Goal 4:: LTG: pt. to complete TUG with time less than 10seconds. Goal Time Frame: 4-6 Weeks Rehabilitation Potential Physical Therapy Diagnosis: Pt. has signs and symptoms consistent with debility and abnormal gait. Pt. has marked BLE weakness resulting in decreased stability with stance and gait. Pt. would benefit from PT to address the above limitations. Rehabilitation Potential: Excellent Anticipated Interventions Patient/Client Instruction: Educate patient on: Condition, Plan of Care, Risk Factors and Benefits of Fitness Program For the Purpose of:: To facilitate caregiver knowledge, To improve self management, To prevent re-injury, To improve ability to perform tasks related to life management and To improve tolerance to ADL's Therapeutic Exercise to Include: Strength training, Power training, Endurance training, Balance training, Coordination, Agility training, Postural training, Flexibilty training and Gait and locomotor training For the Purpose of:: To decrease pain, To increase ROM, To improve nutrient delivery to tissue, To increase oxygenation perfusion, To improve muscle performance and motor function, To improve ability to perform ADL's, To increase tolerance to activity/condition/position, To improve performance and independence with ADL's, To improve ability of physical actions for home/community/work/leisure, To improve gait and locomotor functions, To improve health of tissue, To improve endurance and To improve balance Text: Thank you for the opportunity to evaluate your patient. For Medicare and Medicare HMO plans, please review the plan of care and approve it. It will need to be FAXED BACK to us at [phone] for Medicare purposes. For Medicare only, by signing this I certify the plan of care. Please let me know if there are questions or concerns regarding this plan of care. Physician Signature: Date:
--- NOTE | 2025-03-12 12:36 | HP.PTREVAL ---
Re-Evaluation Intro: Dr. Mitchell Bowen MD, It has been my pleasure to treat PAVITHRA PAINTER over the last 5 visits for Debility and abnormal gait. Please see the progress note below for an update on the physical therapy plan of care! Subjective Subjective: Pt. reports having a UTI last week and has now started medication and is starting to do better. She is awaiting medical clearance for her hernia operation. Patient feels like she has taken a few steps backwards since her initial evaluation. She reports having increased syncope episodes. Objective Objective/Function: PREVIOUS: MMT: RLE: knee: ext 11.9#, flex 15.6#; hip: flex 11.7# , abd 13.4# LLE: knee: ext 13.2#, flex 15.4#; hip: flexion 8.8#, abd 11.6# CURRENT: RLE: knee: ext 19.3#, flex 24.1#; hip: flex 17.4#; abd 13.4# LLE: knee: ext 25.0#, flex 21.1#; hip: flex 13.0#; abd 10.8# TU.43 no AD increased lateral hip sway noted. GAIT: pt. was able to ambulate 200' prior to needing to sit down. She was fatigued, but no marked shortness of breath. Pt. improved with distal LE strength, but not as much with her proximal strength. She deferred sit to stand rep test due to her occurrences with syncope. Plan Plan Plan: I am asking for more visits to increase BLE strength and stability with gait. Pt. was sick for a few weeks having to miss multiple PT sessions. She is still having some syncope episodes and is seeing he doctor later this week to address. I am asking for x2 week for 4 weeks to increase BLE strength and stability with functional mobility 1) focus on BLE strength, especially quad and hips. 2) functional mobility including sit to stand, and gait without AD. 3) Patient also has low endurance and would benefit from further PT to work on building this as well. Balance/Gait/Functional tests Balance/Special Test Scores Functional Gait Assessment Score: 18 % Disability: 40.0000 Lower Extremity Functional Score: 17 TUG Test Time Seconds: 15.34 Tug Test: <20 sec.=mostly independent 30 Second Chair Rise Test Seconds: 11 Goals Goals Goal 1:: LTG: Pt. to be I with HEP. Goal Time Frame: 4-6 Weeks Goal 2:: LTG: Pt. to have increased BLE strength by 10# throughout. Goal Time Frame: 4-6 Weeks Goal Progress: Progressing Goal 3:: LTG: Pt. to complete 30sec sit to stand test with at least 15 reps. Goal Time Frame: 4-6 Weeks Goal Progress: Progressing Goal 4:: LTG: pt. to complete TUG with time less than 10seconds. Goal Time Frame: 4-6 Weeks Goal Progress: Progressing Anticipated Interventions Anticipated Interventions Patient/Client Instruction: Educate patient on: Condition, Plan of Care, Risk Factors and Benefits of Fitness Program For the Purpose of:: To facilitate caregiver knowledge, To improve self management, To prevent re-injury, To improve ability to perform tasks related to life management and To improve tolerance to ADL's Therapeutic Exercise to Include: Strength training, Power training, Endurance training, Balance training, Coordination, Agility training, Postural training, Flexibilty training and Gait and locomotor training For the Purpose of:: To decrease pain, To increase ROM, To improve nutrient delivery to tissue, To increase oxygenation perfusion, To improve muscle performance and motor function, To improve ability to perform ADL's, To increase tolerance to activity/condition/position, To improve performance and independence with ADL's, To improve ability of physical actions for home/community/work/leisure, To improve gait and locomotor functions, To improve health of tissue, To improve endurance and To improve balance Re-Evaluation Ending Re-evaluation ending: Please do not hesitate to contact me at [phone] by phone or if you have questions or concerns regarding this new plan of care! Sincerely, Mark Noguera DPT
--- NOTE | 2025-04-18 16:21 | HP.PTREVAL_ITS ---
Re-Evaluation Intro: Dr. 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 Please see the progress note below for an update on the physical therapy plan of care! Subjective Subjective: Pt. is here today for her re assessment. Pt. informed that she has stage 4 cirrhosis of the live and needs a transplant. Pt. is awaiting process to get on the list. Pt. reports being ~25% better overall. Objective Objective/Function: MMT: RLE: knee: ext 22.9#, flex 19.3#; hip: flexion 17.1# LLE: knee: ext 27.1#, flex 16.8#; hip: flex: 16.6# GAIT: ambulates without AD, but has a general flexed posture. Pt. has increased trunk sway and lateral hip sway. pt. has a marked wide CORINA as well. Pt. did struggle with the narrow CORINA with FGA. She has imrpoved with her strengthening. She did inform me that she needs a liver transplant as well and has started to process. Pt. is overall concerned about her imbalance and general weakness. I would recommend that she continue with PT to work on general strengthening and balance. Plan Plan Plan: I am asking for x2 week for 4 weeks to increase BLE strength and stability with functional mobility 1) focus on BLE strength, especially quad and hips. 2) functional mobility including sit to stand, and gait without AD. 3) Add in dynamic balance including narrow CORINA and uneven surfaces. Balance/Gait/Functional tests Balance/Special Test Scores Functional Gait Assessment Score: 18 % Disability: 40.0000 Lower Extremity Functional Score: 28 TUG Test Time Seconds: 13.91 Tug Test: <20 sec.=mostly independent 30 Second Chair Rise Test Seconds: 12 Goals Goals Goal 1:: LTG: Pt. to be I with HEP. Goal Time Frame: 4-6 Weeks Goal Progress: Progressing Goal 2:: LTG: Pt. to have increased BLE strength by 10# throughout. Goal Time Frame: 4-6 Weeks Goal Progress: Progressing Goal 3:: LTG: Pt. to complete 30sec sit to stand test with at least 15 reps. Goal Time Frame: 4-6 Weeks Goal Progress: Progressing Goal 4:: LTG: pt. to complete TUG with time less than 10seconds. Goal Time Frame: 4-6 Weeks Goal Progress: Progressing Anticipated Interventions Anticipated Interventions Patient/Client Instruction: Educate patient on: Condition, Plan of Care, Risk Factors and Benefits of Fitness Program For the Purpose of:: To facilitate caregiver knowledge, To improve self management, To prevent re-injury, To improve ability to perform tasks related to life management and To improve tolerance to ADL's Therapeutic Exercise to Include: Strength training, Power training, Endurance training, Balance training, Coordination, Agility training, Postural training, Flexibilty training and Gait and locomotor training For the Purpose of:: To decrease pain, To increase ROM, To improve nutrient delivery to tissue, To increase oxygenation perfusion, To improve muscle perform ance and motor function, To improve ability to perform ADL's, To increase tolerance to activity/condition/position, To improve performance and independence with ADL's, To improve ability of physical actions for home/community/work/leisure, To improve gait and locomotor functions, To improve health of tissue, To improve endurance and To improve balance Re-Evaluation Ending Re-evaluation ending: Please do not hesitate to contact me at [phone] by phone or if you have questions or concerns regarding this new plan of care! Sincerely, Mark Noguera DPT
--- NOTE | 2025-05-29 15:36 | HP.PTREVAL_ITS ---
Re-Evaluation Intro: Dr. Mitchell Bowen MD, It has been my pleasure to treat PAVITHRA PAINTER over the last 13 visits for Debility and abnormal gait. Please see the progress note below for an update on the physical therapy plan of care! Subjective Subjective: I am in pain today. I wanted to come back before today, but no one would call me back Objective Objective/Function: sit to stand 9 reps in 30 sec Tug 11 sec MMT: L knee flex= 27, ext= 36; L hip flex= 13, abd= 27; R knee flex= 25, ext= 23; R hip flex= 10, abd= 18 #F Pt has progressed in all aspects but sit to stands. Pt is still limited with all IADL's secondary to a lack for functional strength and mobility. Plan Plan Plan: Attempt to get 12 more visits to focus on B LE strength and functional mobility tasks Balance/Gait/Functional tests Balance/Special Test Scores Functional Gait Assessment Score: 18 % Disability: 40.0000 Lower Extremity Functional Score: 28 TUG Test Time Seconds: 13.91 Tug Test: <20 sec.=mostly independent 30 Second Chair Rise Test Seconds: 12 Goals Goals Goal 1:: LTG: Pt. to be I with HEP. Goal Time Frame: 4-6 Weeks Goal Progress: Progressing Goal 2:: LTG: Pt. to have increased BLE strength by 10# throughout. Goal Time Frame: 4-6 Weeks Goal Progress: Progressing Goal 3:: LTG: Pt. to complete 30sec sit to stand test with at least 15 reps. Goal Time Frame: 4-6 Weeks Goal Progress: Progressing Goal 4:: LTG: pt. to complete TUG with time less than 10seconds. Goal Time Frame: 4-6 Weeks Goal Progress: Progressing Anticipated Interventions Anticipated Interventions Patient/Client Instruction: Educate patient on: Condition, Plan of Care, Risk Factors and Benefits of Fitness Program For the Purpose of:: To facilitate caregiver knowledge, To improve self management, To prevent re-injury, To improve ability to perform tasks related to life management and To improve tolerance to ADL's Therapeutic Exercise to Include: Strength training, Power training, Endurance training, Balance training, Coordination, Agility training, Postural training, Flexibilty training and Gait and locomotor training For the Purpose of:: To decrease pain, To increase ROM, To improve nutrient delivery to tissue, To increase oxygenation perfusion, To improve muscle performance and motor function, To improve ability to perform ADL's, To increase tolerance to activity/condition/position, To improve performance and independence with ADL's, To improve ability of physical actions for home/com munity/work/leisure, To improve gait and locomotor functions, To improve health of tissue, To improve endurance and To improve balance Re-Evaluation Ending Re-evaluation ending: Please do not hesitate to contact me at [phone] by phone or if you have questions or concerns regarding this new plan of care! Sincerely, Wally El, PT, ATC
--- NOTE | 2025-06-08 10:06 | HP.PTREVAL ---
Re-Evaluation Intro: Dr. 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 Please see the progress note below for an update on the physical therapy plan of care! Subjective Subjective: I am gathering information for patient to request future visits. Pt. per previous note was doing better ~45% better overall. She is having B hip pain which is limiting her tolerance to some activities. Objective Objective/Function: sit to stand 9 reps in 30 sec Tug 11 sec without AD MMT: L knee flex= 27, ext= 36; L hip flex= 13, abd= 27; R knee flex= 25, ext= 23; R hip flex= 10, abd= 18 #F Pt has progressed in all aspects but sit to stands. Pt is still limited with all IADL's secondary to a lack for functional strength and mobility. Objective data compiled from 05/29/25. 04/18/25 MMT MMT: RLE: knee: ext 22.9#, flex 19.3#; hip: flexion 17.1# LLE: knee: ext 27.1#, flex 16.8#; hip: flex: 16.6# Pt. has shown increased BLE strength in comparison the previous recheck Pt. is walking better, but continues to complain of low endurances. She improved on her TUG, but did did regress a bit with her 30sec sit to stand rep test. Pavithra continues to stay with in the house mostly due to fatigue. Pt. would like to be able to get outside the house both for recreational walking and fitness, but also to do grocery shopping. Plan Plan Plan: I am requesting more visits to work on functional strengthening of BLEs, increase her endurance in order to complete all ADLs and be able to get out of the house more allowing for increased healthier life style. Balance/Gait/Functional tests Balance/Special Test Scores Functional Gait Assessment Score: 18 % Disability: 40.0000 Lower Extremity Functional Score: 28 TUG Test Time Seconds: 11 Tug Test: <20 sec.=mostly independent 30 Second Chair Rise Test Seconds: 9 Goals Goals Goal 1:: LTG: Pt. to be I with HEP. Goal Time Frame: 4-6 Weeks Goal Progress: Progressing Goal 2:: LTG: Pt. to have increased BLE strength by 10# throughout. Goal Time Frame: 4-6 Weeks Goal Progress: Progressing Goal 3:: LTG: Pt. to complete 30sec sit to stand test with at least 15 reps indicating increased bilateral functional LE strength in order to complete all stair negotation with decreased difficulty. Goal Time Frame: 4-6 Weeks Goal Progress: Progressing Goal 4:: LTG: pt. to complete TUG with time less than 10seconds indicating increased functional stability allowing for improved balance with all community ambulation. Goal Time Frame: 4-6 Weeks Goal Progress: Progressing Goal 5:: LTG: Pt. to be able to complete 6 MWT with at least 900 feet allowing for increased ability to ambulate throughout grocery store allowing for increased tolerance with all IADLSs. Goal Time Frame: 4-6 Weeks Goal Progress: Progressing Anticipated Interventions Anticipated Interventions Patient/Client Instruction: Educate patient on: Condition, Plan of Care, Risk Factors and Benefits of Fitness Program For the Purpose of:: To facilitate caregiver knowledge, To improve self management, To prevent re-injury, To improve ability to perform tasks related to life management and To improve tolerance to ADL's Therapeutic Exercise to Include: Strength training, Power training, Endurance training, Balance training, Coordination, Agility training, Postural training, Flexibilty training and Gait and locomotor training For the Purpose of:: To decrease pain, To increase ROM, To improve nutrient delivery to tissue, To increase oxygenation perfusion, To improve muscle performance and motor function, To improve ability to perform ADL's, To increase tolerance to activity/condition/position, To improve performance and independence with ADL's, To improve ability of physical actions for home/community/work/leisure, To improve gait and locomotor functions, To improve health of tissue, To improve endurance and To improve balance Re-Evaluation Ending Re-evaluation ending: Please do not hesitate to contact me at [phone] by phone or if you have questions or concerns regarding this new plan of care! Sincerely, Mark Noguera DPT
== END 2025-06-28 19:00 | disposition home or self-care (01) ==
LOC: PT 13:30
PROVIDERS: PCP Family Medicine Geriatric Medicine; Referring Provider Family Medicine Geriatric Medicine; Visit Provider Family Medicine Geriatric Medicine
DX: R26.89 Other abnormalities of gait and mobility (principal); R53.81 Other malaise
CPT/HCPCS: 97110; 97161; 97530

== ENCOUNTER → 2025-07-05 | Outpatient (CLI) | payer MEDICARE, MEDICAID, SELFPAY ==
[2025-05-29 14:57] VITALS: BMI 31.2
--- NOTE | 2025-07-05 17:23 | RAD_ITS ---
PROCEDURE: CHEST PA AND LATERAL 07/05/2025 REASON FOR EXAM: SOB TECHNIQUE: Procedure Code: RADCXR Modality: DX Procedure: CHEST PA AND LATERAL COMPARISON: Two-view chest, 05/29/2025. FINDINGS: There has been interval development of a large left pleural effusion, with associated compressive atelectasis. The lungs are otherwise clear. There is cardiomegaly without congestive heart failure. There is a tricuspid valve prosthesis. There are no significant bony abnormalities. RAD/Chest PA and Lateral IMPRESSION: Cardiomegaly. Left pleural effusion with associated compressive atelectasis th e adjacent left lung. The change since the prior exam is likely due to an intercurrent episode of congestive heart failure. Reading Location: [place] [id number]
== END | disposition home or self-care (01) ==
LOC: RAD 17:23
PROVIDERS: PCP Family Medicine Geriatric Medicine; Referring Provider Family Medicine Geriatric Medicine; Visit Provider Family Medicine Geriatric Medicine
DX: R06.02 Shortness of breath (principal)
CPT/HCPCS: 71046

== ENCOUNTER → 2025-07-05 | Outpatient (CLI) | payer MEDICARE, MEDICAID, SELFPAY ==
[2025-05-29 14:57] VITALS: BMI 31.2
[2025-07-05 17:22] LABS: Hematocrit 43.8 % (37-47); Hemoglobin 13.6 g/dL (12.0-15.0); Immature Granulocytes Count 0.030 X10^3/uL (0.0-0.0); Mean Corp Hgb Conc 31.1 g/dL (32-36); Mean Corpuscular Volume 88.0 fL (81-99); Mean Platelet Vol. 10.1 fl (6.2-12.0); NRBC Flagged by Analyzer 0 % (0-5); Platelet Count 183 K/mm3 (150-450); RBC Distribution Width CV 17.2 % (11.6-14.6); RBC Distribution Width SD 53.1 fl (35.1-43.9); Red Blood Count 4.98 M/mm3 (4.2-5.4); White Blood Count 5.6 K/mm3 (4.4-11.0)
[2025-07-05 17:41] LABS: Pro- Brain NATRIURETIC PEPTIDE 6597 pg/mL (<=900)
[2025-07-05 17:52] LABS: Ferritin 66 ng/mL (22-378); LDH 223 U/L (84-246)
[2025-07-05 18:02] LABS: Vitamin B12 485 pg/mL (180-914)
[2025-07-05 19:09] LABS: AST(SGOT) 26 U/L (<=31); Alanine Aminotransfer ALT/SGPT 10 U/L (<=34); Albumin, Serum 2.9 g/dL (3.5-5.0); Alkaline Phosphatase 114 U/L (35-104); Anion Gap 10 (5-15); BUN 40 mg/dL (4-19); BUN/Creat Ratio 22.4 RATIO (10-20); Calcium,Total 9.0 mg/dL (7.6-11.0); Carbon Dioxide 23.2 mmol/L (21.0-32.0); Chloride 107 mmol/L (98-108); Globulin 4.0 g/dL (2.2-4.2); Glucose 117 mg/dL (70-99); Potassium 4.7 mmol/L (3.3-5.1)
[2025-07-05 19:25] LABS: Iron Binding Capacity,Total 267 ug/dL (250-450)
[2025-07-05 19:26] LABS: Iron 51 ug/dL (50-170); Iron Binding Capacity,Unsat 216 ug/dL (228-428)
[2025-07-06 01:13] LABS: Xtra Tube Kwok EXTRA TUBE
== END | disposition home or self-care (01) ==
LOC: POLAB3 16:57
PROVIDERS: Internal Medicine Medical Oncology; PCP Family Medicine Geriatric Medicine; Visit Provider Family Medicine Geriatric Medicine
DX: I11.0 Hypertensive heart disease with heart failure (principal); I50.9 Heart failure, unspecified; E61.1 Iron deficiency; Z85.528 Personal history of other malignant neoplasm of kidney
CPT/HCPCS: 36415; 80053; 82607; 82728; 83540; 83550; 83615; 83880; 85025

== ENCOUNTER → 2025-07-09 | Outpatient (CLI) | payer MEDICARE, MEDICAID, SELFPAY ==
[2025-05-29 14:57] VITALS: BMI 31.2
[2025-07-09 14:43] LABS: Hematocrit 42.3 % (37-47); Hemoglobin 13.1 g/dL (12.0-15.0); Immature Granulocytes Count 0.020 X10^3/uL (0.0-0.0); Mean Corp Hgb Conc 31.0 g/dL (32-36); Mean Corpuscular Volume 89.4 fL (81-99); Mean Platelet Vol. 9.9 fl (6.2-12.0); NRBC Flagged by Analyzer 0 % (0-5); Platelet Count 192 K/mm3 (150-450); RBC Distribution Width CV 17.1 % (11.6-14.6); RBC Distribution Width SD 55.0 fl (35.1-43.9); Red Blood Count 4.73 M/mm3 (4.2-5.4); White Blood Count 8.1 K/mm3 (4.4-11.0)
[2025-07-09 15:29] LABS: Prothrombin Time (Protime)PT. 17.1 SECONDS (11.7-14.9)
[2025-07-09 15:30] LABS: Partial Thromboplast Time 31.0 Seconds (24.1-36.2)
[2025-07-09 22:25] LABS: Xtra Tube Kwok EXTRA TUBE
== END | disposition home or self-care (01) ==
LOC: POLAB3 14:24
PROVIDERS: PCP Family Medicine Geriatric Medicine; Visit Provider Family Medicine Geriatric Medicine
DX: I10 Essential (primary) hypertension (principal); R79.1 Abnormal coagulation profile
CPT/HCPCS: 36415; 85025; 85610; 85730

== ENCOUNTER → 2025-07-09 | Outpatient (CLI) | payer MEDICARE, MEDICAID, SELFPAY ==
[2025-05-29 14:57] VITALS: BMI 31.2
--- NOTE | 2025-07-09 14:05 | CT_ITS ---
PROCEDURE: ABDOMEN/PELVIS WITHOUT CONT 07/09/2025 REASON FOR EXAM: RENAL CA TECHNIQUE: Procedure Code: CTABDPEL Modality: CT Procedure: ABDOMEN/PELVIS WITHOUT CONT Noncontrast technique limits evaluation of the abdominal and pelvic viscera. Coronal and Sagittal reconstruction series were provided. One or more dose reduction techniques were used (e.g., Automated exposure control, adjustment of the mA and/or kV according to patient size, use of iterative reconstruction technique). RADIATION DOSE SUMMARY: CTDlvol: 16 mGy DLP: 853 mGycm COMPARISON: April 19, 2024 FINDINGS: Lung bases: Subsegmental atelectasis inferior lingula, right middle lobe and at the dependent portion of the left lower lobe where there is a jtdyc-ah-cgpeglbv pleural effusion. Atrioventricular valve replacement. Liver: Cirrhotic liver morphology. No mass seen on this noncontrast exam. Sensitivity for lesions is decreased without the use of intravenous contrast. Gallbladder: Partially contracted gallbladder. Gallbladder wall thickening is present likely on the basis of 3rd spacing. No high-density calculi seen. Spleen: Normal-size. No mass seen. Pancreas: Normal Adrenals: Right adrenal is normal. Left adrenal is possibly surgically absent. Kidneys: Left nephrectomy. No mass in the surgical bed. Some expected scarring is present. [place] right kidney is atrophic. No collecting system dilation is seen. Renal allograft in the right lower quadrant shows no collecting system dilation or perinephric mass. Bladder: Grossly normal. Limited by bilateral hip prostheses creating artifact. Reproductive Organs: Not well seen because of artifact. Bowel: Stomach and small bowel appear unremarkable. The colon is unremarkable. Note: There is a spigelian hernia that is fairly large on the right side containing nonincarcerated loops of small bowel in the proximal ascending colon. Appendix: Normal Lymph nodes: None appear enlarged. Vasculature: Mild atherosclerosis. No aneurysm. Peritoneum / Retroperitoneum: No free air. Moderate ascites. Bones: Decreased bone mineralization. Mild degenerative changes of the SI joints. Abdominal wall: Right abdominal wall spigelian hernia. Anasarca anterior abdominal wall. CT/Abdomen/Pelvis without Cont IMPRESSION: 1. Large right spigelian hernia containing nonincarcerated small bowel and lar ge colon. 2. Cirrhosis of the liver with stigmata of portal hypertension including ascit es. 3. Gallbladder wall thickening likely on the basis of 3rd spacing. 4. Left pleural effusion, atelectasis. Abdominal wall edema/anasarca. 5. Left nephrectomy. No residual or recurrent disease in the surgical bed. U nremarkable right lower quadrant renal allograft. Reading Location: [id number]
== END | disposition home or self-care (01) ==
PROVIDERS: PCP Family Medicine Geriatric Medicine; Referring Provider Internal Medicine Medical Oncology; Visit Provider Internal Medicine Medical Oncology
DX: C64.2 Malignant neoplasm of left kidney, except renal pelvis (principal)
CPT/HCPCS: 74176

== ENCOUNTER → 2025-07-10 | Outpatient (CLI) | payer MEDICARE, MEDICAID, SELFPAY ==
[2025-05-29 14:57] VITALS: BMI 31.2
[2025-07-10] VITALS (7 sets, daily range): BP systolic 89–105; BP diastolic 62–76; PULSE 110–116; RESP 18–98; O2SAT 18–100
--- NOTE | 2025-07-10 | FLU_PTH ---
PATIENT: PAVITHRA PAINTER LOC: [facility]#:[id number] AGE/SX: 54/F ROOM: RE07/10/[address]: Dr. Mitchell Bowen MD : 1970 BED: DIS: 07/10/2025 SPEC #: [id number] RECD: 07/10/25 13:27 STATUS: COLLEEN SHAYY #: [id number] ISAIAH: 07/10/25 00:[address]: Mitchell Bowen [place] DEPT: CYTOLOGY RECD BY: Chadd Ashby Tissues: PARACENTESIS FLUID Procedures: Immunohistochemical Stains Special Stain Group II Surgery Specimen Level IV Cytospin Fluid IHC Stain ADDITIONAL HEADER OPERATION: Ultrasound guided paracentesis PRE-OP DIAGNOSIS: Ascites TISSUE SUBMITTED: A- Paracentesis fluid for cytology DIAGNOSIS CYTOLOGY A. Peritoneal fluid, paracentesis (cytospin, cellblock): - No malignant cells identified. - Histiocytes present. - IHCs support the histologic impression: Positive - CD68 Negative - Claudin-4, MOC31,Calretinin, CK5/6 CYTOLOGY STUDY Slides are reviewed. All matched controls reacted appropriately. These tests were developed and their performance characteristics determined by [facility]. They may not have been cleared or approved by the U.S. Food and Drug Administration. The FDA has determined that such clearance or approval is not necessary. The above immunohistochemical markers and/or special?stains have been reviewed by the Pathologist. CYTOLOGY GROSS A. Received is 80 ml of red-cloudy fluid labeled with the patient's name and and designated per the requisition as Paracentesis fluid. Submitted for cytology and cell block preparation. 07/10/2025 CPT: [id number],[id number]
--- NOTE | 2025-07-10 09:30 | VDLE_ITS ---
Reason For Study VL/Venous Duplex US, Unilateral
--- NOTE | 2025-07-10 09:32 | US_ITS ---
PROCEDURE: US/Paracentesis with US
--- NOTE | 2025-07-10 10:12 | US_ITS ---
PROCEDURE: US/Thoracentesis W US
[2025-07-10] MEDS: Lidocaine 2% (20 ml mdv) 20 ML Vial INFILT (11:13)
[2025-07-10 12:27] LABS: Cytology, Body Fluid / CSF SEE PATHOLOGY REPORT
[2025-07-10 12:57] LABS: Body Fluid Mononuclear WBC # 0.223 10^3/uL; Body Fluid Mononuclear WBC % 98.3 %; Body Fluid Polynuclear WBC # 0.004 10^3/uL; Body Fluid Polynuclear WBC % 1.7 %; Red Cell Count/Body Fluid 0.016 10^6/ul; White Blood Count/Body Fluid 0.227 10^3/uL
[2025-07-10 13:15] LABS: Glucose, Body Fluid 130 mg/dL (Not Establ.)
[2025-07-10 13:58] LABS: Auto B Fluid Analyzer BKGD Ct COUNTS W/IN LIMITS (W/IN LIMITS); Color/Body Fluid YELLOW; Source- Body Fluid PARACENTESIS
[2025-07-10 13:59] LABS: Appearance/Body Fluid CLOUDY; Neutrophil (Segs) 9 %
[2025-07-10 14:00] LABS: Body Fluid QC Type(s) BF1Q
[2025-07-10 14:47] LABS: Pathologist Comment/Body Fluid Reviewed
[2025-07-11 14:09] LABS: Albumin, Body Fluid 1.1 g/dL (Not Estab.)
== END | disposition home or self-care (01) ==
PROVIDERS: PCP Family Medicine Geriatric Medicine; Referring Provider Family Medicine Geriatric Medicine; Visit Provider Family Medicine Geriatric Medicine
DX: R89.6 Abnormal cytological findings in specimens from other organs, systems and tissues (principal); J91.8 Pleural effusion in other conditions classified elsewhere; M79.89 Other specified soft tissue disorders; R18.8 Other ascites
CPT/HCPCS: 32555; 49083; 82042; 82945; 83615; 84157; 87070; 87075; 87102; 87205; 87206; 88108; 88305; 88313; 88341; 88342; 89050; 93971

== ENCOUNTER → 2025-07-16 | Outpatient (CLI) | payer MEDICARE, MEDICAID, SELFPAY ==
[2025-05-29 14:57] VITALS: BMI 31.2
[2025-07-16 15:48] LABS: Mucous, Urine 0 SEEN /hpf (<or=2+)
[2025-07-16 17:16] LABS: Color, Urine Yellow (Yellow); Glucose, Dipstick 250 mg/dl (Normal); Ketone-Dipstick Negative (Negative); Leukocyte Esterase-Dipstick 500 /ul (Negative); Nitrite-Dipstick Positive (Negative); Occult Blood-Urine 50 /ul (Negative); Protein-Dipstick 100 mg/dl (Negative); Specific Gravity, Urine 1.020 (1.002-1.030); Urine Bilirubin Dipstick Negative (Negative)
[2025-07-16 22:54] LABS: Squamous Epithelial Cells - UA 0-5 SEEN /hpf (5-10); Transitional Epithelial - Ur 0-5 SEEN /hpf (0-5)
[2025-07-16 22:55] LABS: Red Blood Cells-Urine 0-5 SEEN /hpf (0-5)
== END | disposition home or self-care (01) ==
LOC: POLAB3 15:46
PROVIDERS: PCP Family Medicine Geriatric Medicine; Visit Provider Family Medicine Geriatric Medicine
DX: N39.0 Urinary tract infection, site not specified (principal); R35.0 Frequency of micturition
CPT/HCPCS: 81001; 87077; 87086; 87088; 87186

== ENCOUNTER 2025-07-25 14:17 | Inpatient (IN) | payer MEDICARE, MEDICAID, SELFPAY ==
[2025-05-29 14:57] VITALS: BMI 31.2
[2025-07-25] VITALS (14 sets, daily range): BP systolic 83–132; BP diastolic 61–114; PULSE 83–111; RESP 14–24; TEMP 36.1–37.2; O2SAT 94–100; BMI 32.3; BMI 29.8
--- NOTE | 2025-07-25 14:55 | RAD_ITS ---
PROCEDURE: LEFT HIP, UNI W/ PELVIS 2-3 VIEWS 07/25/2025 REASON FOR EXAM: PAIN TECHNIQUE: Procedure Code: [facility] Modality: DX Procedure: HIP, UNI W/ PELVIS 2-3 VIEWS Laterality: Left COMPARISON: None. FINDINGS: No evidence of acute fracture or dislocation. Status post left hip hemiarthroplasty and total right hip arthroplasty, with intact hardware as visualized. Surgical clips noted within the pelvis. RAD/HIP, UNI W/ Pelvis 2-3 Views IMPRESSION: No evidence of acute fracture or dislocation. Bilateral hip arthroplasties with intact appearing hardware. Reading Location: [id number]
--- NOTE | 2025-07-25 14:55 | CT_ITS ---
PROCEDURE: BRAIN/HEAD WITHOUT CONTRAST 07/25/2025 REASON FOR EXAM: FRUEQNT FALLS, WEAKNESS TECHNIQUE: Procedure Code: CTBR Modality: CT Procedure: BRAIN/HEAD WITHOUT CONTRAST Coronal and Sagittal reconstruction series were provided. One or more dose reduction techniques were used (e.g., Automated exposure control, adjustment of the mA and/or kV according to patient size, use of iterative reconstruction technique. RADIATION DOSE SUMMARY: CTDlvol: 44.99 mGy DLP: 812.98 mGycm COMPARISON: May 29, 2024 FINDINGS: Brain: Within normal limits for age CSF Spaces: Normal Sinuses/Mastoids: Opacification with dense material in both maxillary sinuses suggestive of chronic sinusitis. Opacification of the ethmoid sinuses. Evidence of prior surgery. Bones: Unremarkable CT/Brain/Head without Contrast IMPRESSION: NORMAL NONCONTRAST HEAD CT. Sinusitis. Reading Location: [place] [address]
--- NOTE | 2025-07-25 14:56 | EKG12_ITS ---
Test Reason : Blood Pressure : */* mmHG Vent. Rate : 119 BPM Atrial Rate : * BPM P-R Int : * ms QRS Dur : 78 ms QT Int : 304 ms P-R-T Axes : * -47 264 degrees QTcB Int : 427 ms Atrial fibrillation with rapid ventricular response with premature ventricular or aberrantly conducted complexes Left axis deviation Pulmonary disease pattern Inferior infarct , age undetermined Abnormal ECG Confirmed by DK GARCIA, BAM ([id number]), assignment editor LUISA PRESTON ([id number]) on 07/30/2025 8:24:37 AM Referred By: Confirmed By: BAM ROOT MD
[2025-07-25 15:17] LABS: Hematocrit 37.3 % (37-47); Hemoglobin 11.6 g/dL (12.0-15.0); Immature Granulocytes Count 0.130 X10^3/uL (0.0-0.0); Mean Corp Hgb Conc 31.1 g/dL (32-36); Mean Corpuscular Volume 90.3 fL (81-99); Mean Platelet Vol. 9.9 fl (6.2-12.0); NRBC Flagged by Analyzer 0 % (0-5); Platelet Count 162 K/mm3 (150-450); RBC Distribution Width CV 18.6 % (11.6-14.6); RBC Distribution Width SD 57.5 fl (35.1-43.9); Red Blood Count 4.13 M/mm3 (4.2-5.4); White Blood Count 13.1 K/mm3 (4.4-11.0)
--- NOTE | 2025-07-25 15:20 | RAD_ITS ---
PROCEDURE: CHEST 1 VIEW (PORTABLE) 07/25/2025 REASON FOR EXAM: SOB TECHNIQUE: Frontal view of the chest. COMPARISON: 07/05/2025 FINDINGS: Cardiomegaly, with central vascular congestion. Prosthetic heart valve. Asymmetric hazy opacification of the left hemithorax, likely representing a posterior layering pleural effusion. No sizable pleural effusion on the right. No pneumothorax. No significant osseous abnormality visualized. RAD/Chest 1 View (Portable) IMPRESSION: Cardiomegaly. Layering left-sided pleural effusion. Reading Location: [id number]
[2025-07-25 15:58] LABS: AST(SGOT) 48 U/L (<=31); Alanine Aminotransfer ALT/SGPT 10 U/L (<=34); Albumin, Serum 2.7 g/dL (3.5-5.0); Alkaline Phosphatase 96 U/L (35-104); Anion Gap 10 (5-15); BUN 51 mg/dL (4-19); BUN/Creat Ratio 26.2 RATIO (10-20); CPK Total, Creatine Kinase 445 U/L (24-195); Calcium,Total 8.9 mg/dL (7.6-11.0); Carbon Dioxide 23.5 mmol/L (21.0-32.0); Chloride 106 mmol/L (98-108); Globulin 3.3 g/dL (2.2-4.2); Glucose 121 mg/dL (70-99); Potassium 4.9 mmol/L (3.3-5.1); Pro- Brain NATRIURETIC PEPTIDE 20051 pg/mL (<=900)
[2025-07-25 16:12] LABS: Lipase 13 U/L (13-75); Prothrombin Time (Protime)PT. 26.3 SECONDS (11.7-14.9)
[2025-07-25 16:13] LABS: Partial Thromboplast Time 45.2 Seconds (24.1-36.2)
[2025-07-25 16:16] LABS: Troponin T High Sensitivity 73 ng/L (<=14)
[2025-07-25 16:17] LABS: Ammonia 25.0 umol/L (11-51)
--- NOTE | 2025-07-25 16:28 | EDS_ITS ---
HPI History of Present Illness Chief Complaint: Shortness of Breath Informant: patient Narrative Narrative: Patient is a 54-year-old female relatively complex medical history including insulin-dependent diabetes mellitus, lupus nephritis, prior renal cell cancer as well as renal transplant with associated immunosuppression and cirrhosis of the liver requiring recurrent paracentesis/thoracentesis as well as diastolic heart failure presenting with worsening weakness, frequent falls and shortness of breath. Patient notes that her brother was sick a couple weeks ago with a cold. She is having worsening respiratory symptoms including worsening cough that is productive of yellow sputum for the past week. Denies any fevers. States has been more weak over the past few days and had frequent falls. She also feels that she has had some increased swelling and swelling on the fluid. Is complaining of left hip pain associated with her falls. He is anticoagulated on Coumadin. [facility] Medical History Colon polyp Cataract (lens) fragments in eye following cataract surgery, bilateral Diabetic foot ulcer associated with diabetes mellitus due to underlying condition History of renal cell cancer Debility Immunosuppression due to drug therapy Decubitus ulcer of right buttock, stage 3 Decubitus ulcer of left buttock, stage 3 Polyneuropathy due to type 2 diabetes mellitus Chronic sinusitis Incisional hernia CKD (chronic kidney disease) stage 4, GFR 15-29 ml/min Wears glasses Wears dentures Post-menopausal Insulin dependent diabetes mellitus Uses wheelchair Walker as ambulation aid Ambulates with cane Lupus Fatty liver Gastric reflux Non-smoker CPAP (continuous positive airway pressure) dependence Shortness of breath on exertion History of echocardiogram History of stress test Cardiology follow-up encounter Obstructive sleep apnea CHF with right heart failure Diastolic CHF, chronic Right ventricular dilation Essential hypertension Osteopenia Vitamin D deficiency 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) Hypophosphatemia Hip pain Prolonged QT interval Chronic diarrhea Nonrheumatic mitral (valve) insufficiency Secondary pulmonary arterial hypertension Non-rheumatic tricuspid valve insufficiency Degenerative disc disease, cervical Cervical spondylosis Narcolepsy Lupus nephritis SLE (systemic lupus erythematosus) Home Medications ?Medication ?Instructions ?Recorded ?Last Taken ?Type prednisone 5 mg tablet 5 mg PO DAILY steroid for mary anne pus 07/08/20 08/22/24 08:16 History levocetirizine 5 mg tablet 5 mg PO DAILY ALLERGIES 12/3108/22/24 08:15 History blood sugar diagnostic #10 ea 11/04/20 Unknown Hist ory lancets 33 gauge #100 ea 11/04/20 Unknown His tory pregabalin 150 mg capsule 150 mg PO BID neuropathy 08/22/24 08:17 History OneTouch Verio test strips (blood #360 ea 04/17/21 Unk nown Rx sugar diagnostic) hydroxychloroquine 200 mg tablet 200 mg PO DAILY antim alarial 07/08/21 08/22/24 08:13 History acetaminophen 500 mg tablet 500 mg PO Q6H PRN pain/fev er 11/25/21 Unknown History ketoconazole 2 % shampoo 1 applic topical DAILY hair loss 01/04/22 10/31/23 History desvenlafaxine succinate 100 mg 100 mg PO DAILY ANTIDE PRESSANT 02/19/22 08/22/24 08:09 History tablet,extended release 24 hr Dexcom G6 Pallet Rectifier #1 ea 03/04/22 Unknown Rx (blood-glucose,double end sewer,cont) cevimeline 30 mg capsule (Evoxac) 1 cap PO TID dry dee th 05/05/22 08/22/24 08:08 History BD Ultra-Fine Mini Pen Needle 31 #100 ea 06/30/22 Unkn own Rx gauge x 3/16 (pen needle, diabetic) mycophenolate mofetil 250 mg 500 mg PO BID anti reject ion 03/04/23 08/22/24 08:16 History capsule (CellCept) mirtazapine 15 mg tablet 15 mg PO QHS sleep 03/05/23 08/21/24 20:15 History alpha lipoic acid 600 mg capsule 600 mg PO DAILY neuro que 02/17/24 08/21/24 20:04 History bumetanide 1 mg tablet 1 mg PO .qd fluid retention 02/17/24 08/21/24 20:05 History carvedilol 6.25 mg tablet 6.25 mg PO BID heart functio n 02/17/24 08/22/24 08:07 History fluticasone propionate 50 1 spray intranasal DAILY PRN 02/17/24 Unknown History mcg/actuation nasal allergies spray,suspension (Flonase Allergy Relief) warfarin 3 mg tablet 3 mg PO .qd heart valve 03/0605/25/24 History insulin pump cart,automated,BT #45 ea 04/07/24 Unknown Rx (Omnipod 5 G6 Pods (Gen 5) subcutaneous cartridge) loperamide 2 mg capsule (Imodium 2 mg PO Q6H PRN diarr hea 05/29/24 08/22/24 08:15 History A-D) empagliflozin 10 mg tablet 10 mg PO QDAY diabetes 1006/0608/22/24 08:11 History (Jardiance) aspirin 81 mg tablet,delayed 81 mg PO DAILY heart heal th 08/01/24 08/22/24 08:04 History release budesonide 1 mg/2 mL suspension 1 mg irrigation TID ch ronic 08/01/24 08/22/24 08:40 History for nebulization sinusitis cyclosporine modified 25 mg capsule PO antirejection 1 10/01/23 Unknown History efinaconazole 10 % topical 1 applic topical .qd PRN na il 08/01/24 Unknown History solution with applicator (Mallory) fungus ketorolac 0.5 % eye drops 1 drp LEFT EYE 4X/DAY allerg ies 08/01/24 08/22/24 12:00 History diclofenac sodium 1 % topical gel 4.5 inch topical TID PRN JOINT PAIN 08/22/24 Unknown History ipratropium 20 mcg-albuterol 100 2 puff inhalation RACHAEL LY PRN 08/22/24 Unknown History mcg/actuation mist for inhalation wheezing (Combivent Respimat) oxycodone 5 mg tablet 5 mg PO TID PRN PRN pain 07/0608/21/24 History sodium chloride 0.9 % irrigation 1 irrig irrigation TI D chronic 08/22/24 08/22/24 08:35 History solution sinusitis insulin pump cart,auto,BT,G6/7 #45 ea 09/25/24 Unknown Rx (Omnipod 5 G6-G7 Pods (Gen 5) subcutaneous cartridge) blood sugar diagnostic (OneTouch #100 ea 11/06/24 Unkn own Rx Verio test strips) lancets 33 gauge #200 ea 11/07/24 Unknown Rx Dexcom G6 Transmitter #1 ea 12/13/24 Unknown Rx (blood-glucose transmitter) ferrous sulfate 325 mg (65 mg 325 mg PO BID 03/19/25 U nknown History iron) tablet Dexcom G6 Sensor (blood-glucose #3 ea 06/13/25 Unknown Rx sensor) Humalog U-100 Insulin 100 unit/mL 100 unit subcut GILDARDO Y diabetes #90 06/13/25 Unknown Rx subcutaneous solution (insulin mL lispro) metoprolol tartrate 50 mg tablet 50 mg PO BID 07/16/25 Unknown History Allergy/AdvReac Type Severity Reaction Status Date / Time LONG Inhibitors Allergy Angioedema Verified 07/16/25 14:14 adhesive Allergy Rash Verified 07/16/25 14:14 lisinopril Allergy Angioedema Verified 07/16/25 14:14 Sulfa (Sulfonamide Allergy Rash Verified 07/16/25 14:14 Antibiotics) sulfamethoxazole (From Allergy Rash Verified 07/16/25 14:14 Bactrim) trimethoprim (From Bactrim) Allergy Rash Verified 07/16/25 14:14 tuberculin, purified protein Allergy Unknown Verified 07/16/25 14:14 deriva Family History Mother Hypertension Kidney disease ALS (amyotrophic lateral sclerosis) Father Heart disease Hypertension Kidney disease Diabetes Brother Melanoma Surgical History History of kidney removal Status post kidney transplant Tricuspid valve replaced Transplant recipient History of dilation and curettage History of biopsy History of right hip replacement Hx of right heart catheterization Kidney transplant recipient Hip replacement planned History of left heart catheterization (03/08/20) revision of right hip arthroplasty (05/10/19) port removed Status post carpal tunnel release Status post total hip replacement, bilateral S/P lymph node biopsy S/P colonoscopy History of esophagogastroduodenoscopy (EGD) S/P nasal polypectomy Social History household members: family housing: house Smoking Status: Never smoker alcohol intake: never substance use type: does not use caffeine: No what type of physical activity do you participate in: other details: PT seatbelt use: always do you feel safe at home: Yes additional social history: Single ROS ROS ED Constitutional Constitutional ED: Denies chills or fever(s) Respiratory/Chest Respiratory/Chest: Reports cough, dyspnea and sputum Gastrointestinal Gastrointestinal: Reports other Details: increased abdominal distention ; Denies melena or vomiting Musculoskeletal Musculoskeletal: Reports arthralgias and myalgias Integumentary Denies rash Neurologic Neurologic: Reports weakness Hematologic/Lymphatic Hematologic/Lymphatic: Reports easy bleeding and easy bruising EXAM Physical Exam Const Vital Signs: 07/25/25 14:19 07/25/25 15:09 07/25/25 16:01 Temperature 98.9 F Temperature Source Oral Pulse Rate 111 H 110 H 110 H Respiratory Rate 18 22 H 14 Respiratory Effort Respiratory Pattern Blood Pressure 86/65 L 132/114 H 94/61 Blood Pressure Mean 72 120 72 Pulse Ox 94 98 94 Oxygen Delivery Method Room Air Room Air Room Air 07/25/25 16:02 07/25/25 16:40 07/25/25 17:00 Temperature Temperature Source Pulse Rate 110 H 106 H Respiratory Rate 15 22 H Respiratory Effort Normal Non-Labored Respiratory Pattern Normal Blood Pressure 93/67 Blood Pressure Mean 75 Pulse Ox 94 Oxygen Delivery Method Room Air 07/25/25 17:02 Temperature 98.3 F Temperature Source Pulse Rate 106 H Respiratory Rate 18 Respiratory Effort Respiratory Pattern Blood Pressure 93/67 Blood Pressure Mean 75 Pulse Ox 99 Oxygen Delivery Method Positive well nourished and well developed General Appearance ED: well developed and NAD HEENT Reports dry mucous membranes Negative for trauma Mouth ED: Yes dry mucous membranes Mouth: dry mucous membranes Eyes Eyes Narrative: livier-orbital edema present Neck supple and no JVD Chest Wall inspection of chest normal Resp Resp Narrative: course breath sounds with expiratory wheezing present Cardio regular rate, regular rhythm and no murmurs GI non-tender GI Narrative: Distended abdomen with small fluid wave present. Extremity normal to inspection General Extremety ED: Negative for edema General Extremity: Negative for edema Neuro oriented x3 Sensorium / Orientation: alert Motor Exam: general weakness Psych mental status grossly normal Skin no rashes or lesions noted and no wounds MDM MDM MDM Narrative Medical decision making narrative: Patient evaluated for worsening respiratory symptoms, falls and weakness. She is coming from home. Does not wear home O2. Broad workup given patient is immunosuppressed as well as has history of cirrhosis and diastolic heart failure includes acute renal failure, hyperammonia anemia, fluid overload, sepsis, pneumonia, pleural effusions, urinary tract infection, rhabdomyolysis and left hip fracture. She is reporting left hip pain but is not of significant deformity or pain on exam. Upon arrival patient is hypotensive and tachycardic however blood pressure does normalize slightly in the emergency room. Chest x-ray shows highly asymmetric breath sounds concerning on my interpretation for multifocal pneumonia but could be associated with CHF. She does have a leukocytosis and a left shift so we will cover for healthcare associated [place] with vancomycin and Zosyn. Is given a 500 cc bolus in the ER for tachycardia and hypotension. INR is therapeutic. Hemoglobin and only mildly low no concern for symptomatic anemia at this time. She does have a mildly elevated CPK possibly associated early rhabdomyolysis. Creatinine is elevated however it looks to be near her baseline. High-sensitivity troponin is elevated at 73, will need trending. EKG does not show acute ischemic changes. BNP is quite elevated and significantly increased compared to a couple weeks ago. This to be more suggestive of fluid overload. Urinalysis is pending. Patient will be admitted for possibly mixed pneumonia as well as CHF exacerbation. Case discussed with Dr. Early. Lab Data Attestation: I reviewed the patient's lab results. Labs: Laboratory Results - last 24 hr 07/25/25 07/25/25 13:06 15:40 WBC 13.1 H RBC 4.13 L Hgb 11.6 L Hct 37.3 MCV 90.3 MCH 28.1 MCHC 31.1 L RDW Std Deviation 57.5 H RDW Coeff of Jah 18.6 H Plt Count 162 MPV 9.9 Immature Gran % (Auto) 1.000 H Neut % (Auto) 79.5 H Lymph % (Auto) 6.8 L [place] % (Auto) 11.4 H Eos % (Auto) 1.1 Baso % (Auto) 0.2 Absolute Neuts (auto) 10.4 H Absolute Lymphs (auto) 0.89 Nucleated RBC % 0 PT 26.3 H INR 2.4 APTT 45.2 H Sodium 139 Potassium 4.9 Chloride 106 Carbon Dioxide 23.5 Anion Gap 10 BUN 51 H Creatinine 1.94 H Est GFR (MDRD) Non-Af 31 L BUN/Creatinine Ratio 26.2 H Glucose 121 H Lactic Acid 1.2 Calcium 8.9 Total Bilirubin 2.98 H AST 48 H ALT 10 Alkaline Phosphatase 96 Ammonia 25.0 Total Creatine Kinase 445 H Troponin T High Sens 73 H* NT pro BNP II H Total Protein 6.0 Albumin 2.7 L Globulin 3.3 Albumin/Globulin Ratio 0.8 L Lipase 13 Radiography Diagnostic Testing: Clinical Impression(s) from Imaging Studies Brain CT 07/25/25 14:55 IMPRESSION: NORMAL NONCONTRAST HEAD CT. Sinusitis. [facility]Pel[facility] 07/25/25 14:55 IMPRESSION: No evidence of acute fracture or dislocation. Bilateral hip arthroplasties with intact appearing hardware. Reading Location: [facility] Chest X-Ray 07/25/25 15:20 IMPRESSION: Cardiomegaly. Layering left-sided pleural effusion. Reading Location: [facility] Rhythm Strip Rhythm Strip: Sinus Tach Rate: 119 Ectopy: None EKG Initial EKG: Attestation: I personally reviewed and interpreted this EKG as follows: Interpretation: Sinus Tachycardia Comments: Sinus tachycardia and rate 119 bpm Left axis deviation Pulmonary disease pattern Low amplitude and baseline artifact making interpretation more difficult Compared to prior ECG, Now tachycardic with decreased amplitude Management Discussion w/another healthcare provider: Hospitalist Discharge Plan Dx/Rx/DC Orders Clinical Impression: Weakness, Pneumonia, CHF with right heart failure, Debility, Falls, Elevated CPK, History of renal cell cancer, Cirrhosis, Diabetes mellitus with diabetic polyneuropathy Disposition Disposition: [facility] D/C Safety Score for UGIB Assessment Mark-Blatchford Bleeding Score (GBS): Stratifies upper GI bleeding patients who are low-risk and candidates for outpatient management. Hemoglobin, BUN, Recent Vital Signs: Hgb 11.6 g/dL (12.0-15.0) L 07/25/25 13:06 BUN 51 mg/dL (4-19) H 07/25/25 13:06 Pulse Rate 106 Blood Pressure 93/67 Score Interpretation: Score of 0: A GBS of 0 is a ?Low Risk? GI bleed, and is highly sensitive (99.6% in a 2007 retrospective study) for predicting which patients did not require any ?medical intervention?: blood transfusion, endoscopy, or surgery. This was confirmed in a 2009 Lancet study where patients with a score of 0 were actually discharged and had no GI bleeding mortality at 6 month followup Score above 0: A GBS greater than zero suggests a ?High Risk? GI bleed that is likely to require ?medical intervention?: transfusion, endoscopy, or surgery. A higher GBS also correlated with a higher likelihood of needing intervention Scores >/= 6 are associated with >50% risk of needing intervention D/C Safety Score for LGIB Assessment Assessment Tool: Readmission and adverse event risk in patients with acute lower GI bleeding. Hemoglobin and Recent Vital Signs: Hgb 11.6 g/dL (12.0-15.0) L 07/25/25 13:06 Pulse Rate 106 07/25/25 17:02 Blood Pressure 93/67 07/25/25 17:02 Score Interpretation: Probability Percentage of safe discharge (absence of rebleeding, blood transfusion, therapeutic intervention, 28 day readmission, or ) Score of 8 or below: Consider discharge, with appropriate precautions. Score of 9 or above: Discharge NOT recommended. Consider admission with further workup and resuscitation as necessary.
[2025-07-25 16:35] LABS: Mucous, Urine 0 SEEN /hpf (<or=2+)
[2025-07-25] MEDS: Piperacil/Tazobactam 3.375 GM in 0.9% Normal Saline (50mL MB+) 50 ML IV ×2 (16:57→22:54)
[2025-07-25] MEDS: 0.9% Normal Saline (500mL Bag) 500 ML 999 ML IV (16:57)
[2025-07-25 17:55] LABS: Color, Urine Yellow (Yellow); Glucose, Dipstick 250 mg/dl (Normal); Ketone-Dipstick Negative (Negative); Leukocyte Esterase-Dipstick Negative /ul (Negative); Nitrite-Dipstick Negative (Negative); Occult Blood-Urine 10 /ul (Negative); Protein-Dipstick 30 mg/dl (Negative); Specific Gravity, Urine 1.020 (1.002-1.030); Urine Bilirubin Dipstick Negative (Negative)
[2025-07-25] MEDS: Vancomycin HCl 1,250 MG in 0.9% Normal Saline (250mL Bag) 250 ML 167 MG IV (17:57)
[2025-07-25 18:07] LABS: Troponin T High Sens 2 HR 59 ng/L (<=14)
--- NOTE | 2025-07-25 18:18 | PCA ---
[facility] CALLED @181 I FAXED OVER A FACESHEET FOR THEM.
[2025-07-25 18:59] LABS: Transitional Epithelial - Ur 0-5 SEEN /hpf (0-5)
[2025-07-25 19:00] LABS: Red Blood Cells-Urine 0-5 SEEN /hpf (0-5); Squamous Epithelial Cells - UA 0-5 SEEN /hpf (5-10)
[2025-07-25 19:38] LABS: Troponin T High Sens 4 HR 63 ng/L (<=14)
--- NOTE | 2025-07-25 19:50 | CT_ITS ---
PROCEDURE: CHEST WITHOUT CONTRAST 07/25/2025 REASON FOR EXAM: LEFT PLEURAL EFFUSION, PNEUMONIA TECHNIQUE: Chest CT without contrast. Coronal and Sagittal reconstruction series were provided. One or more dose reduction techniques were used (e.g., Automated exposure control, adjustment of the mA and/or kV according to patient size, use of iterative reconstruction technique COMPARISON: Chest x-ray 08/24/2025 FINDINGS: Hardware: Prosthetic heart valve in place. Lymph nodes: No enlarged mediastinal, hilar, or axillary lymph nodes. Heart and Vasculature: Nonenlarged. No pericardial effusion. Coronary artery atherosclerotic calcifications. Lungs and Airways: Scattered ground-glass opacities throughout the right lung suggestive of atypical pneumonia. No discrete pulmonary mass. Airways are patent. Pleura: Layering [id number] left pleural effusion. No pneumothorax. Upper Abdomen: Cirrhotic morphology liver with small volume abdominal ascites. Bones: Degenerative changes of the thoracic spine. Chronic fracture deformity of the sternum. No acute fractures. CT/Chest without Contrast IMPRESSION: 1. [id number] layering left pleural effusion. 2. Scattered ground-glass opacities throughout the right lung suggestive of aty pical pneumonia. 3. Hepatic cirrhosis with small volume abdominal ascites. [facility]
--- NOTE | 2025-07-25 20:50 | HP.PCM.HOS_ITS ---
HPI - General General Date of Admission: 07/25/25 Date of Service: 07/25/25 Chief Complaint: Dyspnea, fluid retention, low blood pressure HPI Kameron PAINTER, is a 54 F who presents to the emergency room at [facility] for evaluation of dyspnea and fluid retention over the last several days. Patient had been treated recently for what was felt to be a sinus infection and a UTI, she had been prescribed an inhaler and given some prednisone and an antibiotic. Patient stated that she felt she was retaining fluid, she has a history of chronic kidney disease and had a kidney transplant in 2019, she underwent a left nephrectomy in 2023 due to renal cell cancer. Patient follows with nephrology. Workup in the emergency room included labs which revealed an elevated white blood cell count at 13.1, hemoglobin was 11.6, chemistry profile was abnormal for creatinine of 1.94 and a BUN of 51, patient's bilirubin was elevated at 2.98 and AST was elevated at 48. Patient's CPK was 445, troponin was 73 and repeat troponin at 2 hours was 59. Patient's beta natruretic peptide was elevated at 20,051, patient's urinalysis was unremarkable. Chest x-ray was obtained which showed cardiomegaly and a layering left-sided pleural effusion. Patient's blood pressure was noted to be low in the emergency room-initial blood pressure was 86/65. I contacted nephrology (Dr. Taylor) he recommended that the patient be transferred to [facility] where transplant was performed, was contacted and accepted the patient but did not have a bed and did not feel there would be a bed available tonight. I made the decision to admit the patient to ICU, patient will be maintained on antibiotics for possible pneumonia, patient will be seen by nephrology here and I will order a CT scan of the chest to further delineate whether the patient does have a pleural effusion. Patient will be seen in consultation by pulmonary medicine and infectious diseases. [facility] Medical History Colon polyp Cataract (lens) fragments in eye following cataract surgery, bilateral Diabetic foot ulcer associated with diabetes mellitus due to underlying condition History of renal cell cancer Debility Immunosuppression due to drug therapy Decubitus ulcer of right buttock, stage 3 Decubitus ulcer of left buttock, stage 3 Polyneuropathy due to type 2 diabetes mellitus Chronic sinusitis Incisional hernia CKD (chronic kidney disease) stage 4, GFR 15-29 ml/min Wears glasses Wears dentures Post-menopausal Insulin dependent diabetes mellitus Uses wheelchair Walker as ambulation aid Ambulates with cane Lupus Fatty liver Gastric reflux Non-smoker CPAP (continuous positive airway pressure) dependence Shortness of breath on exertion History of echocardiogram History of stress test Cardiology follow-up encounter Obstructive sleep apnea CHF with right heart failure Diastolic CHF, chronic Right ventricular dilation Essential hypertension Osteopenia Vitamin D deficiency 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) Hypophosphatemia Hip pain Prolonged QT interval Chronic diarrhea Nonrheumatic mitral (valve) insufficiency Secondary pulmonary arterial hypertension Non-rheumatic tricuspid valve insufficiency Degenerative disc disease, cervical Cervical spondylosis Narcolepsy Lupus nephritis SLE (systemic lupus erythematosus) Home Medications ?Medication ?Instructions ?Recorded ?Last Taken ?Type prednisone 5 mg tablet 5 mg PO DAILY steroid for mary anne pus 07/08/20 08/22/24 08:16 History levocetirizine 5 mg tablet 5 mg PO DAILY ALLERGIES 12/3108/22/24 08:15 History blood sugar diagnostic #10 ea 11/04/20 Unknown Hist ory lancets 33 gauge #100 ea 11/04/20 Unknown His tory pregabalin 150 mg capsule 150 mg PO BID neuropathy 08/22/24 08:17 History OneTouch Verio test strips (blood #360 ea 04/17/21 Unk nown Rx sugar diagnostic) hydroxychloroquine 200 mg tablet 200 mg PO DAILY antim alarial 07/08/21 08/22/24 08:13 History acetaminophen 500 mg tablet 500 mg PO Q6H PRN pain/fev er 11/25/21 Unknown History ketoconazole 2 % shampoo 1 applic topical DAILY hair loss 01/04/22 10/31/23 History desvenlafaxine succinate 100 mg 100 mg PO DAILY ANTIDE PRESSANT 02/19/22 08/22/24 08:09 History tablet,extended release 24 hr Dexcom G6 Propeller Mechanic #1 ea 03/04/22 Unknown Rx (blood-glucose,pickle processor,cont) cevimeline 30 mg capsule (Evoxac) 1 cap PO TID dry dee th 05/05/22 08/22/24 08:08 History BD Ultra-Fine Mini Pen Needle 31 #100 ea 06/30/22 Unkn own Rx gauge x 3/16 (pen needle, diabetic) mycophenolate mofetil 250 mg 500 mg PO BID anti reject ion 03/04/23 08/22/24 08:16 History capsule (CellCept) mirtazapine 15 mg tablet 15 mg PO QHS sleep 03/05/23 08/21/24 20:15 History alpha lipoic acid 600 mg capsule 600 mg PO DAILY neuro que 02/17/24 08/21/24 20:04 History bumetanide 1 mg tablet 1 mg PO .qd fluid retention 02/17/24 08/21/24 20:05 History carvedilol 6.25 mg tablet 6.25 mg PO BID heart functio n 02/17/24 08/22/24 08:07 History fluticasone propionate 50 1 spray intranasal DAILY PRN 02/17/24 Unknown History mcg/actuation nasal allergies spray,suspension (Flonase Allergy Relief) warfarin 3 mg tablet 3 mg PO .qd heart valve 03/0605/25/24 History insulin pump cart,automated,BT #45 ea 04/07/24 Unknown Rx (Omnipod 5 G6 Pods (Gen 5) subcutaneous cartridge) loperamide 2 mg capsule (Imodium 2 mg PO Q6H PRN diarr hea 05/29/24 08/22/24 08:15 History A-D) empagliflozin 10 mg tablet 10 mg PO QDAY diabetes 06/0608/22/24 08:11 History (Jardiance) aspirin 81 mg tablet,delayed 81 mg PO DAILY heart heal th 08/01/24 08/22/24 08:04 History release budesonide 1 mg/2 mL suspension 1 mg irrigation TID ch ronic 08/01/24 08/22/24 08:40 History for nebulization sinusitis cyclosporine modified 25 mg capsule 25 mg PO Q12H anti rejection 08/01/24 Unknown History efinaconazole 10 % topical 1 applic topical .qd PRN na il 08/01/24 Unknown History solution with applicator (Jublia) fungus ketorolac 0.5 % eye drops 1 drp LEFT EYE 4X/DAY allerg ies 08/01/24 08/22/24 12:00 History diclofenac sodium 1 % topical gel 4.5 inch topical TID PRN JOINT PAIN 08/22/24 Unknown History ipratropium 20 mcg-albuterol 100 2 puff inhalation RACHAEL LY PRN 08/22/24 Unknown History mcg/actuation mist for inhalation wheezing (Combivent Respimat) oxycodone 5 mg tablet 5 mg PO TID PRN PRN pain 07/0608/21/24 History sodium chloride 0.9 % irrigation 1 irrig irrigation TI D chronic 08/22/24 08/22/24 08:35 History solution sinusitis insulin pump cart,auto,BT,G6/7 #45 ea 09/25/24 Unknown Rx (Omnipod 5 G6-G7 Pods (Gen 5) subcutaneous cartridge) blood sugar diagnostic (OneTouch #100 ea 11/06/24 Unkn own Rx Verio test strips) lancets 33 gauge #200 ea 11/07/24 Unknown Rx Dexcom G6 Transmitter #1 ea 12/13/24 Unknown Rx (blood-glucose transmitter) ferrous sulfate 325 mg (65 mg 325 mg PO BID 03/19/25 U nknown History iron) tablet Dexcom G6 Sensor (blood-glucose #3 ea 06/13/25 Unknown Rx sensor) Humalog U-100 Insulin 100 unit/mL 100 unit subcut GILDARDO Y diabetes #90 06/13/25 Unknown Rx subcutaneous solution (insulin mL lispro) metoprolol tartrate 50 mg tablet 50 mg PO BID 07/16/25 Unknown History Allergy/AdvReac Type Severity Reaction Status Date / Time LONG Inhibitors Allergy Angioedema Verified 07/16/25 14:14 adhesive Allergy Rash Verified 07/16/25 14:14 lisinopril Allergy Angioedema Verified 07/16/25 14:14 Sulfa (Sulfonamide Allergy Rash Verified 07/16/25 14:14 Antibiotics) sulfamethoxazole (From Allergy Rash Verified 07/16/25 14:14 Bactrim) trimethoprim (From Bactrim) Allergy Rash Verified 07/16/25 14:14 tuberculin, purified protein Allergy Unknown Verified 07/16/25 14:14 deriva Family History Mother Hypertension Kidney disease ALS (amyotrophic lateral sclerosis) Father Heart disease Hypertension Kidney disease Diabetes Brother Melanoma Surgical History History of kidney removal Status post kidney transplant Tricuspid valve replaced Transplant recipient History of dilation and curettage History of biopsy History of right hip replacement Hx of right heart catheterization Kidney transplant recipient Hip replacement planned History of left heart catheterization (03/08/20) revision of right hip arthroplasty (05/10/19) port removed Status post carpal tunnel release Status post total hip replacement, bilateral S/P lymph node biopsy S/P colonoscopy History of esophagogastroduodenoscopy (EGD) S/P nasal polypectomy Social History household members: family housing: house Smoking Status: Never smoker alcohol intake: never substance use type: does not use caffeine: No what type of physical activity do you participate in: other details: PT seatbelt use: always do you feel safe at home: Yes additional social history: Single ROS Constitutional Constitutional: Reports fatigue and weakness; Denies anorexia, change in weight, chills, fever(s) or night sweats Eyes Eyes: Denies blurry vision, change in vision, discharge from eye(s) or eye pain Cardiovascular Cardiovascular: Reports dyspnea on exertion; Denies chest pain, claudication, edema or palpitations Respiratory/Chest Respiratory/Chest: Reports dyspnea and shortness of breath with exertion; Denies cough, hemoptysis or shortness of breath at rest Gastrointestinal Gastrointestinal: Denies abdominal pain, constipation, diarrhea, hematemesis, hematochezia, melena, nausea or vomiting Genitourinary Genitourinary: Denies dysuria, hematuria, urinary frequency, urinary hesitancy, urinary incontinence or urinary urgency Musculoskeletal Musculoskeletal: Denies back pain, joint pain, joint stiffness, joint swelling, myalgias or neck pain Neurologic Neurologic: Denies abnormal gait, abnormal speech, dizziness, focal weakness, headache(s), loss of vision, numbness, other visual disturbances, paresthesias, syncope or tingling Psychiatric Psychiatric: Denies anxiety, cognitive impairment, depression, irritability, mood swings or suicidal ideation Endocrine Endocrinology: Denies change in body appearance, cold intolerance, excessive sweating, heat intolerance, polydipsia or polyuria Hematologic/Lymphatic Hematologic/Lymphatic: Denies none, anemia, easy bleeding, easy bruising or lymphadenopathy Allergic/Immunologic Allergic/Immunologic: Denies rhinitis, urticaria, eczemia or asthma Vital Signs Vital Signs Vital Signs: 07/25/25 14:19 07/25/25 15:09 07/25/25 16:01 Temperature 98.9 F Temperature Source Oral Pulse Rate 111 H 110 H 110 H Respiratory Rate 18 22 H 14 Respiratory Effort Respiratory Pattern Blood Pressure 86/65 L 132/114 H 94/61 Blood Pressure Mean 72 120 72 Pulse Ox 94 98 94 Oxygen Delivery Method Room Air Room Air Room Air 07/25/25 16:02 07/25/25 16:40 07/25/25 17:00 Temperature Temperature Source Pulse Rate 110 H 106 H Respiratory Rate 15 22 H Respiratory Effort Normal Non-Labored Respiratory Pattern Normal Blood Pressure 93/67 Blood Pressure Mean 75 Pulse Ox 94 Oxygen Delivery Method Room Air 07/25/25 17:02 07/25/25 17:10 07/25/25 19:03 Temperature 98.3 F 98.3 F Temperature Source Oral Pulse Rate 106 H 106 H 106 H Respiratory Rate 18 18 20 H Respiratory Effort Respiratory Pattern Blood Pressure 93/67 83/66 L 102/77 Blood Pressure Mean 75 71 85 Pulse Ox 99 99 97 Oxygen Delivery Method Room Air Room Air 07/25/25 20:00 Temperature 98.2 F Temperature Source Oral Pulse Rate 83 Respiratory Rate 16 Respiratory Effort Respiratory Pattern Blood Pressure 94/69 Blood Pressure Mean 77 Pulse Ox 99 Oxygen Delivery Method Room Air Weight Weight: 85.4 kg Body Mass Index (BMI) 32.3 Physical Exam Const alert, oriented x3 and no apparent distress Constitutional Narrative: Patient initially was a poor informant but subsequently became more alert during her stay in the emergency room. General Appearance: cooperative, well kempt and well developed Orientation / Consciousness: awake, oriented to person, oriented to place and oriented to time HEENT normocephalic, head/scalp atraumatic and moist oral mucous membranes Eyes PERRL, EOMs intact bilaterally and conjunctivae normal Neck supple, no JVD, thyroid normal and no carotid bruits General: trachea midline Resp normal respiratory effort, no retractions, no use of accessory muscles and clear to auscultation bilaterally Auscultation: Negative for rales, rhonchi or wheezes Cardio regular rate, regular rhythm, S1 normal heart sound, S2 normal heart sound, no murmurs, no rub and no gallops GI normal to inspection, nondistended, normoactive bowel sounds, soft to palpation, non-tender and non-distended Extremity no clubbing, cyanosis or edema Skin no rashes or lesions noted General Skin Exam: no breakdown Neuro oriented x3, CN's II-XII intact bilaterally, moves all extremities, no focal motor deficits and no sensory deficits noted Sensorium / Orientation: awake and alert Speech: speech normal Psych affect normal Results Lab / Micro Data 07/25/25 13:06 07/25/25 13:06 Labs: Laboratory Results - last 24 hr 07/25/25 13:06: WBC 13.1 H, RBC 4.13 L, Hgb 11.6 L, Hct 37.3, MCV 90.3, MCH 28.1, MCHC 31.1 L, RDW Std Deviation 57.5 H, RDW Coeff of Jah 18.6 H, Plt Count 162, MPV 9.9, Immature Gran % (Auto) 1.000 H, Neut % (Auto) 79.5 H, Lymph % (Auto) 6.8 L, [place] % (Auto) 11.4 H, Eos % (Auto) 1.1, Baso % (Auto) 0.2, A bsolute Neuts (auto) 10.4 H, Absolute Lymphs (auto) 0.89, Nucleated RBC % 0, PT 26.3 H, INR 2.4, APTT 45.2 H, Sodium 139, Potassium 4.9, Chloride 106, Carbon Dioxide 23.5, Anion Gap 10, BUN 51 H, Creatinine 1.94 H, Est GFR (MDRD) Non-Af 31 L, BUN/Creatinine Ratio 26.2 H, Glucose 121 H, Calcium 8.9, Total Bilirubin 2.98 H, AST 48 H, ALT 10, Alkaline Phosphatase 96, Total Creatine Kinase 445 H, Troponin T High Sens 73 H*, NT pro BNP II H, Total Protein 6.0, Albumin 2.7 L, Globulin 3.3, Albumin/Globulin Ratio 0.8 L, Lipase 13 07/25/25 15:40: Lactic Acid 1.2, Ammonia 25.0 07/25/25 16:28: Urine Color Yellow, Urine Clarity Clear, Urine pH 5.0, Ur Specific [place] 1.020, Urine Protein 30 H, Urine Glucose (UA) 250 H, Urine Ketones Negative, Urine Occult Blood 10 H, Urine Nitrite Negative, Urine Bilirubin Negative, Urine Urobilinogen 4 H, Ur Leukocyte Esterase Negative, Urine RBC 0-5 SEEN, Urine WBC 0-5 SEEN, Ur Squamous Epith Cells 0-5 SEEN, Ur Transition Epith Cell 0-5 SEEN, Urine Bacteria 0 SEEN, Urine Mucus 0 SEEN 07/25/25 17:00: Troponin T Hi Sens 2 Hr 59 H* 07/25/25 19:00: Troponin T Hi Sens 4Hr 63 H* Micro: Microbiology 07/25/25 16:28 Urine, Random Legionella Antigen - Final 07/25/25 16:28 Urine, Random Streptococcus pneumoniae Antigen (M - Final 07/25/25 15:40 Mucosa - Nose SARS-CoV-2, Influenza & RSV (PCR) - Final Rhythm Strip Rhythm Strip: Sinus Tach Rate: 119 Ectopy: None Imaging Radiology Impression Brain CT 07/25/25 14:55 IMPRESSION: NORMAL NONCONTRAST HEAD CT. Sinusitis. [facility] 07/25/25 14:55 IMPRESSION: No evidence of acute fracture or dislocation. Bilateral hip arthroplasties with intact appearing hardware. Reading Location: [facility] Chest X-Ray 07/25/25 15:20 IMPRESSION: Cardiomegaly. Layering left-sided pleural effusion. Reading Location: [facility] Chest CT 07/25/25 19:50 IMPRESSION: 1. [id number] layering left pleural effusion. 2. Scattered ground-glass opacities throughout the right lung suggestive of atypical pneumonia. 3. Hepatic cirrhosis with small volume abdominal ascites. Reading Location: [facility] Assessment & Plan Assessment/Plan (1) Pneumonia: PLAN: Plan 1. Possible pneumonia-patient has a slightly elevated white blood cell count- this could be secondary to recent use of corticosteroids-but she is on immunosuppressive medication, for now I will treat for a suspected pneumonia with IV antibiotics and have infectious disease see the patient tomorrow. #2 possible left pleural effusion, this could be secondary to ascites-patient will undergo CT of the chest tonight to verify that she has a left pleural effusion, she will be seen tomorrow by pulmonary medicine, she will undergo an ultrasound of the abdomen to assess the patient for ascites #3 chronic kidney disease-patient will be seen by nephrology, labs will be monitored #4 elevated liver enzymes-etiology unclear, patient has a history of cirrhosis according to her medical record, liver enzymes will be repeated tomorrow morning, I have elected to obtain an ultrasound of her abdomen and pelvis-it appears that she underwent a paracentesis in late June of this year. #5 chronic use of anticoagulation-patient is on warfarin secondary to her tricuspid valve surgery, she told me that she was advised to remain on anticoagulation due to the fact that the tricuspid valve procedure was a new procedure #6 Lupus-complicates care, management, recovery, and prognosis #7 type 2 diabetes-blood sugars will be monitored, sliding scale insulin will be administered as indicated Total clinical time spent by myself addressing the patient's medical issues, reviewing all of her data, and collaborating with patient's care team: 75 minutes Charges/Coding Visit Charges Inpatient E&M: 42977 Init Hosp L3 D/C Safety Score for UGIB Assessment [place] Bleeding Score (GBS): Stratifies upper GI bleeding patients who are low-risk and candidates for outpatient management. Hemoglobin, BUN, Recent Vital Signs: Hgb 11.6 g/dL (12.0-15.0) L 07/25/25 13:06 BUN 51 mg/dL (4-19) H 07/25/25 13:06 Pulse Rate 83 Blood Pressure 94/69 Score Interpretation: Score of 0: A GBS of 0 is a ?Low Risk? GI bleed, and is highly sensitive (99.6% in a 2007 retrospective study) for predicting which patients did not require any ?medical intervention?: blood transfusion, endoscopy, or surgery. This was confirmed in a 2009 Lancet study where patients with a score of 0 were actually discharged and had no GI bleeding mortality at 6 month followup Score above 0: A GBS greater than zero suggests a ?High Risk? GI bleed that is likely to require ?medical intervention?: transfusion, endoscopy, or surgery. A higher GBS also correlated with a higher likelihood of needing intervention Scores >/= 6 are associated with >50% risk of needing intervention D/C Safety Score for LGIB Assessment Assessment Tool: Readmission and adverse event risk in patients with acute lower GI bleeding. Hemoglobin and Recent Vital Signs: Hgb 11.6 g/dL (12.0-15.0) L 07/25/25 13:06 Pulse Rate 83 07/25/25 20:00 Blood Pressure 94/69 07/25/25 20:00 Score Interpretation: Probability Percentage of safe discharge (absence of rebleeding, blood transfusion, therapeutic intervention, 28 day readmission, or ) Score of 8 or below: Consider discharge, with appropriate precautions. Score of 9 or above: Discharge NOT recommended. Consider admission with further workup and resuscitation as necessary.
--- NOTE | 2025-07-25 21:06 | US_ITS ---
EXAM: US Abdomen Limited, Right Upper Quadrant CLINICAL INDICATION: ASCITES SURVEY TECHNIQUE: Real-time ultrasound of the right upper quadrant with image documentation. COMPARISON: No relevant prior studies available. FINDINGS: LIVER: Unremarkable. No mass. No intrahepatic bile duct dilation. GALLBLADDER: Unremarkable. No gallstones. COMMON BILE DUCT: Unremarkable as visualized. No stones. No dilation. PANCREAS: Unremarkable as visualized. RIGHT KIDNEY: Unremarkable. No stones. No solid mass. No hydronephrosis. FREE FLUID: Moderate ascites in all 4 quadrants, largest in the right lower abdominal quadrant. US/Abdomen Limited IMPRESSION: Ascites as above. Reading Location: [id number]
--- NOTE | 2025-07-25 23:27 | PCM.RX.CS ---
Consult Antibiotic Management Pharmacy has been consulted to manage selected antibiotic: Vancomycin Type of Intervention Type of Consult: New start Labs Labs: Sodium 139 mmol/L (133-145) 07/25/25 13:06 Potassium 4.9 mmol/L (3.3-5.1) 07/25/25 13:06 Chloride 106 mmol/L (98-108) 07/25/25 13:06 Carbon Dioxide 23.5 mmol/L (21.0-32.0) 07/25/25 13:06 Anion Gap 10 (5-15) 07/25/25 13:06 BUN 51 mg/dL (4-19) H 07/25/25 13:06 Creatinine 1.94 mg/dL (0.70-1.20) H 07/25/25 13:06 Est GFR (MDRD) Non-Af 31 (>60) L 07/25/25 13:06 BUN/Creatinine Ratio 26.2 RATIO (10-20) H 07/25/25 13:06 Glucose 121 mg/dL (70-99) H 07/25/25 13:06 Microbiology Microbiology: Microbiology 07/25/25 16:28 Urine, Random Legionella Antigen - Final 07/25/25 16:28 Urine, Random Streptococcus pneumoniae Antigen (M - Final 07/25/25 15:40 Mucosa - Nose SARS-CoV-2, Influenza & RSV (PCR) - Final Dosing Weight Weight used for dosin.9 kg Estimated Creatinine Clearance Estimated Creatinine Clearance: 35.8 Goal Trough Goal Trough: 15-20 mcg/mL Pharmacy Plan for Drug Dosing Pharmacy Plan for Drug Dosing: Pharmacy Service will continue to monitor and adjust dosing as required. ER DOSE 1250MG GIVEN 07/25 @ 1757. START 1000MG Q24H AND DRAW TROUGH PRIOR TO 3RD DOSE Follow-Up Labs Follow-Up Labs: Trough: Vancomycin Date/Time Labs Ordered Labs to be done on [date and time ordered]: 07/27 2740
[2025-07-26] VITALS (29 sets, daily range): BP systolic 83–111; BP diastolic 50–86; PULSE 107–135; RESP 12–26; TEMP 36.3–36.8; O2SAT 94–100; BMI 29.8
[2025-07-26 05:30] LABS: Hematocrit 33.8 % (37-47); Hemoglobin 10.5 g/dL (12.0-15.0); Immature Granulocytes Count 0.070 X10^3/uL (0.0-0.0); Mean Corp Hgb Conc 31.1 g/dL (32-36); Mean Corpuscular Volume 89.2 fL (81-99); Mean Platelet Vol. 10.3 fl (6.2-12.0); NRBC Flagged by Analyzer 0 % (0-5); Platelet Count 134 K/mm3 (150-450); RBC Distribution Width CV 18.7 % (11.6-14.6); RBC Distribution Width SD 57.3 fl (35.1-43.9); Red Blood Count 3.79 M/mm3 (4.2-5.4); White Blood Count 10.1 K/mm3 (4.4-11.0)
[2025-07-26] MEDS: Piperacil/Tazobactam 3.375 GM in 0.9% Normal Saline (50mL MB+) 50 ML IV ×3 (05:39→20:15)
[2025-07-26 06:03] LABS: AST(SGOT) 36 U/L (<=31); Alanine Aminotransfer ALT/SGPT 9 U/L (<=34); Albumin, Serum 2.5 g/dL (3.5-5.0); Alkaline Phosphatase 86 U/L (35-104); Anion Gap 7 (5-15); BUN 46 mg/dL (4-19); BUN/Creat Ratio 26.4 RATIO (10-20); Bilirubin, Direct 2.08 mg/dL (0.00-0.30); Calcium,Total 8.7 mg/dL (7.6-11.0); Carbon Dioxide 23.1 mmol/L (21.0-32.0); Chloride 110 mmol/L (98-108); Estimated Creatinine Clearance 38.22 ml/min (50-250); Globulin 3.0 g/dL (2.2-4.2); Glucose 106 mg/dL (70-99); Potassium 4.3 mmol/L (3.3-5.1)
--- NOTE | 2025-07-26 07:25 | EX.PCM.CONCC ---
Assessment & Plan Assessment/Plan (1) Weakness: PLAN: Plan RECOMMENDATIONS: 1. Antimicrobials per ID recommendations. 2. Diuresis as tolerated. 3. Continue immunosuppressive regimen. 4. Hold Coumadin for now. 5. Ultrasound-guided thoracentesis with pleural fluid analysis. 6. Awaiting transfer to tertiary care facility. IMPRESSIONS: 1. Weakness and shortness of breath The patient has a known history of renal transplantation in 2019 along with renal cell carcinoma status post left nephrectomy in 2023. She was recently told that she had underlying cirrhosis and has had a left-sided, recurrent pleural effusion, which was evident on repeat imaging on admission. Unfortunately, pleural fluid studies were never sent following the patient's prior thoracentesis. I do suspect that her dyspnea is likely related to her volume status with pleural effusion and ascites noted on imaging. Although her blood pressures are borderline, she has never required vasopressor support. I do not appreciate any significant infiltrate or consolidation on imaging to suggest pneumonia. Nevertheless, I would recommend proceeding with ultrasound-guided thoracentesis with pleural fluid analysis. Antimicrobials will be continued, in the interim, per ID recommendations. The patient is apparently awaiting transfer to [facility], where she receives all of her nephrology related care. 2. History of chronic kidney disease/cirrhosis/history of SLE/diabetes mellitus/history of renal cell carcinoma status post nephrectomy Complicates care, management, recovery and prognosis. Continue supportive measures as noted above. Nephrology is following to assist with medical management. This note was generated with [employer] dictation software. It may contain incorrect words, spelling, and punctuation that were not noted in checking the note before signing. HPI Consult Data Date of Consult: 07/26/25 HPI Narrative Reason for Consultation: Critical care management HPI Narrative: The patient is a 54-year-old female, with a history as outlined below, who presented to the emergency department via EMS on July 25 with complaints of progressive shortness of breath. The patient has a medical history significant for renal cell carcinoma status post left nephrectomy in 2023, chronic kidney disease status post transplantation in 2019 (follows with nephrology), heart failure with preserved ejection fraction, tricuspid valve insufficiency, unspecified cirrhosis, history of lupus and diabetes mellitus. She did report recent exposure to a sick family member with viral URI symptoms. She also reported that she has been experiencing progressive fluid retention over the last couple weeks. The patient underwent ultrasound-guided paracentesis at the end of June 2025 with 1.2 L of fluid removed. She also underwent a successful left sided ultrasound-guided thoracentesis at that time as well. However, pleural fluid studies were never submitted. On presentation to the emergency department, the patient was noted to be afebrile with borderline hemodynamics. Initial laboratory evaluation revealed a white blood cell count of 13,000. Hemoglobin and platelet count were stable. INR was noted to be 2.4. Chemistry profile was notable for a BUN of 51 and creatinine of 1.94. Lactate was normal at 1.2. Bilirubin was elevated at 2.98. Troponin was increased at 73 with a BNP of 20,051. Urine analysis was unremarkable. CT head revealed no acute intracranial process. CT chest demonstrated a left-sided pleural effusion. Abdominal ultrasound revealed evidence of ascites. In light of the patient's renal transplantation status, the decision was made to transfer the patient to [facility]. However, due to a lack of bed availability, the patient was admitted to our ICU while awaiting transfer. She was subsequently placed on antimicrobials and continued on diuretics. She has remained hemodynamically stable, without the need for vasopressor support. [facility] Medical History (Updated 07/26/25 @ 11:20 by BEVERLEY Bradshaw) Chronic kidney disease, stage 3b Colon polyp Cataract (lens) fragments in eye following cataract surgery, bilateral Diabetic foot ulcer associated with diabetes mellitus due to underlying condition History of renal cell cancer Debility Immunosuppression due to drug therapy Decubitus ulcer of right buttock, stage 3 Decubitus ulcer of left buttock, stage 3 Polyneuropathy due to type 2 diabetes mellitus Chronic sinusitis Incisional hernia CKD (chronic kidney disease) stage 4, GFR 15-29 ml/min Wears glasses Wears dentures Post-menopausal Insulin dependent diabetes mellitus Uses wheelchair Walker as ambulation aid Ambulates with cane Lupus Fatty liver Gastric reflux Non-smoker CPAP (continuous positive airway pressure) dependence Shortness of breath on exertion History of echocardiogram History of stress test Cardiology follow-up encounter Obstructive sleep apnea CHF with right heart failure Diastolic CHF, chronic Right ventricular dilation Essential hypertension Osteopenia Vitamin D deficiency 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) Hypophosphatemia Hip pain Prolonged QT interval Chronic diarrhea Nonrheumatic mitral (valve) insufficiency Secondary pulmonary arterial hypertension Non-rheumatic tricuspid valve insufficiency Degenerative disc disease, cervical Cervical spondylosis Narcolepsy Lupus nephritis SLE (systemic lupus erythematosus) Home Medications ?Medication ?Instructions ?Recorded ?Last Taken ?Type prednisone 5 mg tablet 5 mg PO DAILY steroid for lupus 07/08/20 08/22/24 08:16 History levocetirizine 5 mg tablet 5 mg PO DAILY ALLERGIES 07/17/20 08/22/24 08:15 History blood sugar diagnostic #10 ea 11/04/20 Unknown History lancets 33 gauge #100 ea 11/04/20 Unknown History pregabalin 150 mg capsule 150 mg PO BID neuropathy 03/31/21 08/22/24 08:17 History OneTouch Verio test strips (blood #360 ea 04/17/21 Unknown Rx sugar diagnostic) hydroxychloroquine 200 mg tablet 200 mg PO DAILY antimalarial 07/08/21 08/22/24 08:13 History acetaminophen 500 mg tablet 500 mg PO Q6H PRN pain/fever 11/25/21 Unknown History ketoconazole 2 % shampoo 1 applic topical DAILY hair loss 01/04/22 10/31/23 History desvenlafaxine succinate 100 mg 100 mg PO DAILY ANTIDEPRESSANT 02/19/22 08/22/24 08:09 History tablet,extended release 24 hr Dexcom G6 Marine Propulsion Technician #1 ea 03/04/22 Unknown Rx (blood-glucose,breeder service technician,cont) cevimeline 30 mg capsule (Evoxac) 1 cap PO TID dry mouth 05/05/22 08/22/24 08:08 History BD Ultra-Fine Mini Pen Needle 31 #100 ea 06/30/22 Unknown Rx gauge x 3/16 (pen needle, diabetic) mycophenolate mofetil 250 mg 500 mg PO BID anti rejection 03/04/23 08/22/24 08:16 History capsule (CellCept) mirtazapine 15 mg tablet 15 mg PO QHS sleep 03/05/23 08/21/24 20:15 History alpha lipoic acid 600 mg capsule 600 mg PO DAILY neuropathy 02/17/24 08/21/24 20:04 History bumetanide 1 mg tablet 1 mg PO .qd fluid retention 02/17/24 08/21/24 20:05 History carvedilol 6.25 mg tablet 6.25 mg PO BID heart function 02/17/24 08/22/24 08:07 History fluticasone propionate 50 1 spray intranasal DAILY PRN 02/17/24 Unknown History mcg/actuation nasal allergies spray,suspension (Flonase Allergy Relief) warfarin 3 mg tablet 3 mg PO .qd heart valve 02/17/24 05/25/24 History insulin pump cart,automated,BT #45 ea 04/07/24 Unknown Rx (Omnipod 5 G6 Pods (Gen 5) subcutaneous cartridge) loperamide 2 mg capsule (Imodium 2 mg PO Q6H PRN diarrhea 05/29/24 08/22/24 08:15 History A-D) empagliflozin 10 mg tablet 10 mg PO QDAY diabetes 06/21/24 08/22/24 08:11 History (Jardiance) aspirin 81 mg tablet,delayed 81 mg PO DAILY heart health 08/01/24 08/22/24 08:04 History release budesonide 1 mg/2 mL suspension 1 mg irrigation TID chronic 08/01/24 08/22/24 08:40 History for nebulization sinusitis cyclosporine modified 25 mg capsule 25 mg PO Q12H antirejection 08/01/24 Unknown History efinaconazole 10 % topical 1 applic topical .qd PRN nail 08/01/24 Unknown History solution with applicator (Jublia) fungus ketorolac 0.5 % eye drops 1 drp LEFT EYE 4X/DAY allergies 08/01/24 08/22/24 12:00 History diclofenac sodium 1 % topical gel 4.5 inch topical TID PRN JOINT PAIN 08/22/24 Unknown History ipratropium 20 mcg-albuterol 100 2 puff inhalation DAILY PRN 08/22/24 Unknown History mcg/actuation mist for inhalation wheezing (Combivent Respimat) oxycodone 5 mg tablet 5 mg PO TID PRN PRN pain 08/22/24 08/21/24 History sodium chloride 0.9 % irrigation 1 irrig irrigation TID chronic 08/22/24 08/22/24 08:35 History solution sinusitis insulin pump cart,auto,BT,G6/7 #45 ea 09/25/24 Unknown Rx (Omnipod 5 G6-G7 Pods (Gen 5) subcutaneous cartridge) blood sugar diagnostic (OneTouch #100 ea 11/06/24 Unknown Rx Verio test strips) lancets 33 gauge #200 ea 11/07/24 Unknown Rx Dexcom G6 Transmitter #1 ea 12/13/24 Unknown Rx (blood-glucose transmitter) ferrous sulfate 325 mg (65 mg 325 mg PO BID 03/19/25 Unknown History iron) tablet Dexcom G6 Sensor (blood-glucose #3 ea 06/13/25 Unknown Rx sensor) Humalog U-100 Insulin 100 unit/mL 100 unit subcut DAILY diabetes #90 06/13/25 Unknown Rx subcutaneous solution (insulin mL lispro) metoprolol tartrate 50 mg tablet 50 mg PO BID 07/16/25 Unknown History Allergy/AdvReac Type Severity Reaction Status Date / Time LONG Inhibitors Allergy Angioedema Verified 07/16/25 14:14 adhesive Allergy Rash Verified 07/16/25 14:14 lisinopril Allergy Angioedema Verified 07/16/25 14:14 Sulfa (Sulfonamide Allergy Rash Verified 07/16/25 14:14 Antibiotics) sulfamethoxazole (From Allergy Rash Verified 07/16/25 14:14 Bactrim) trimethoprim (From Bactrim) Allergy Rash Verified 07/16/25 14:14 tuberculin, purified protein Allergy Unknown Verified 07/16/25 14:14 deriva Family History Mother Hypertension Kidney disease ALS (amyotrophic lateral sclerosis) Father Heart disease Hypertension Kidney disease Diabetes Brother Melanoma Surgical History (Updated 07/26/25 @ 11:20 by BEVERLEY Bradshaw) Status post kidney transplant History of kidney removal Tricuspid valve replaced Transplant recipient History of dilation and curettage History of biopsy History of right hip replacement Hx of right heart catheterization Kidney transplant recipient Hip replacement planned History of left heart catheterization (03/08/20) revision of right hip arthroplasty (05/10/19) port removed Status post carpal tunnel release Status post total hip replacement, bilateral S/P lymph node biopsy S/P colonoscopy History of esophagogastroduodenoscopy (EGD) S/P nasal polypectomy Social History household members: family housing: house Smoking Status: Never smoker alcohol intake: never substance use type: does not use caffeine: No what type of physical activity do you participate in: other details: PT seatbelt use: always do you feel safe at home: Yes additional social history: Single ROS ROS Narrative 10 systems were reviewed with pertinent positives as noted in the HPI above. Physical Exam Const alert, oriented x3 and no apparent distress Constitutional Narrative: Obese. Resting comfortably in bed. HEENT normocephalic and head/scalp atraumatic Eyes PERRL, EOMs intact bilaterally and conjunctivae normal Neck supple General: trachea midline Chest inspection of chest normal Resp normal respiratory effort Auscultation: Negative for rales, rhonchi or wheezes Cardio regular rate and regular rhythm GI normal to inspection, nondistended, normoactive bowel sounds Extremity no clubbing, cyanosis or edema Skin no rashes or lesions noted Neuro CN's II-XII intact bilaterally, moves all extremities and no focal motor deficits Psych cooperative and affect normal Lab / Micro Data 07/26/25 05:23 07/26/25 05:23 Labs: Laboratory Results - last 24 hr 07/25/25 13:06: WBC 13.1 H, RBC 4.13 L, Hgb 11.6 L, Hct 37.3, MCV 90.3, MCH 28.1, MCHC 31.1 L, RDW Std Deviation 57.5 H, RDW Coeff of Jah 18.6 H, Plt Count 162, MPV 9.9, Immature Gran % (Auto) 1.000 H, Neut % (Auto) 79.5 H, Lymph % (Auto) 6.8 L, [place] % (Auto) 11.4 H, Eos % (Auto) 1.1, Baso % (Auto) 0.2, Absolute Neuts (auto) 10.4 H, Absolute Lymphs (auto) 0.89, Nucleated RBC % 0, PT 26.3 H, INR 2.4, APTT 45.2 H, Sodium 139, Potassium 4.9, Chloride 106, Carbon Dioxide 23.5, Anion Gap 10, BUN 51 H, Creatinine 1.94 H, Est GFR (MDRD) Non-Af 31 L, BUN/Creatinine Ratio 26.2 H, Glucose 121 H, Calcium 8.9, Total Bilirubin 2.98 H, AST 48 H, ALT 10, Alkaline Phosphatase 96, Total Creatine Kinase 445 H, Troponin T High Sens 73 H*, NT pro BNP II H, Total Protein 6.0, Albumin 2.7 L, Globulin 3.3, Albumin/Globulin Ratio 0.8 L, Lipase 13 07/25/25 15:40: Lactic Acid 1.2, Ammonia 25.0 07/25/25 16:28: Urine Color Yellow, Urine Clarity Clear, Urine pH 5.0, Ur Specific [place] 1.020, Urine Protein 30 H, Urine Glucose (UA) 250 H, Urine Ketones Negative, Urine Occult Blood 10 H, Urine Nitrite Negative, Urine Bilirubin Negative, Urine Urobilinogen 4 H, Ur Leukocyte Esterase Negative, Urine RBC 0-5 SEEN, Urine WBC 0-5 SEEN, Ur Squamous Epith Cells 0-5 SEEN, Ur Transition Epith Cell 0-5 SEEN, Urine Bacteria 0 SEEN, Urine Mucus 0 SEEN 07/25/25 17:00: Troponin T Hi Sens 2 Hr 59 H* 07/25/25 19:00: Troponin T Hi Sens 4Hr 63 H* 07/25/25 22:45: POC Glucose 124 H 07/26/25 05:23: WBC 10.1, RBC 3.79 L, Hgb 10.5 L, Hct 33.8 L, MCV 89.2, MCH 27.7, MCHC 31.1 L, RDW Std Deviation 57.3 H, RDW Coeff of Jah 18.7 H, Plt Count 134 L, MPV 10.3, Immature Gran % (Auto) 0.700, Neut % (Auto) 78.7 H, Lymph % (Auto) 6.9 L, Gre[place] % (Auto) 12.2 H, Eos % (Auto) 1.4, Baso % (Auto) 0.1, Absolute Neuts (auto) 8.0 H, Absolute Lymphs (auto) 0.70 L, Nucleated RBC % 0, Sodium 140, Potassium 4.3, Chloride 110 H, Carbon Dioxide 23.1, Anion Gap 7, BUN 46 H, Creatinine 1.75 H, Estim Creat Clear Calc 38.22 L, Est GFR (MDRD) Non-Af 35 L, BUN/Creatinine Ratio 26.4 H, Glucose 106 H, Calcium 8.7, Total Bilirubin 2.70 H, Direct Bilirubin 2.08 H, AST 36 H, ALT 9, Alkaline Phosphatase 86, Total Protein 5.4 L, Albumin 2.5 L, Globulin 3.0 07/26/25 06:41: POC Glucose 104 Micro: Microbiology 07/25/25 16:28 Urine, Random Legionella Antigen - Final 07/25/25 16:28 Urine, Random Streptococcus pneumoniae Antigen (M - Final 07/25/25 15:40 Mucosa - Nose SARS-CoV-2, Influenza & RSV (PCR) - Final Rhythm Strip Rhythm Strip: Sinus Tach Rate: 119 Ectopy: None Imaging Radiology Impression Brain CT 07/25/25 14:55 IMPRESSION: NORMAL NONCONTRAST HEAD CT. Sinusitis. Reading Location: [id number] Hip/Pelvis X-Ray 07/25/25 14:55 IMPRESSION: No evidence of acute fracture or dislocation. Bilateral hip arthroplasties with intact appearing hardware. Reading Location: [facility] Chest X-Ray 07/25/25 15:20 IMPRESSION: Cardiomegaly. Layering left-sided pleural effusion. Reading Location: [facility] Chest CT 07/25/25 19:50 IMPRESSION: 1. Fhsny-[id number] layering left pleural effusion. 2. Scattered ground-glass opacities throughout the right lung suggestive of atypical pneumonia. 3. Hepatic cirrhosis with small volume abdominal ascites. Reading [facility] Abdomen Ultrasound 07/25/25 21:06 IMPRESSION: Ascites as above. Reading Location: [id number] Charges/Coding Visit Charges Inpatient E&M: 23128 Init Hosp L3
[2025-07-26] MEDS: Aspirin E.C. 81 MG Tablet PO (09:20)
--- NOTE | 2025-07-26 09:53 | CON.PCM.ID_ITS ---
Assessment & Plan Assessment/Plan (1) Pneumonia: PLAN: Resp pcr panel pending. Covid/flu/rsv neg. H/o renal transplant 2019 at . Will order sputum cx. Urine antigens neg. Recent ucx 07/16 with klebs pneumo (R to amp, unasyn, macrobid). Elevated bili and BNP. Moderate ascites on ultrasound, last paracentesis was 2 weeks ago. Recommend echo and paracentesis with fluid studies and fluid culture. No fever here, wbc improved to 10 from 13. Cont empiric vanc/zosyn. 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 Denies any h/o rejection or infectious complications. No recent changes in immunosuppression regiment. Had paracentesis done 07/10/25. Had some urinary frequency, dx with uti and sinus infection last week, started on levaquin, but had progressive dyspnea, cough with occasional yellow sputum, fatigue, weakness, and falls at home. No recent travel. Brother recently with URI. Had progressive edema throughout her body, came to ED at [facility] on 07/25, found to have hypotension, elevated bilirubin, and high BNP. Admitted on vanc/zosyn, feeling about the same this AM. Full ROS performed and neg except as noted above. [facility] Medical History Colon polyp Cataract (lens) fragments in eye following cataract surgery, bilateral Diabetic foot ulcer associated with diabetes mellitus due to underlying condition History of renal cell cancer Debility Immunosuppression due to drug therapy Decubitus ulcer of right buttock, stage 3 Decubitus ulcer of left buttock, stage 3 Polyneuropathy due to type 2 diabetes mellitus Chronic sinusitis Incisional hernia CKD (chronic kidney disease) stage 4, GFR 15-29 ml/min Wears glasses Wears dentures Post-menopausal Insulin dependent diabetes mellitus Uses wheelchair Walker as ambulation aid Ambulates with cane Lupus Fatty liver Gastric reflux Non-smoker CPAP (continuous positive airway pressure) dependence Shortness of breath on exertion History of echocardiogram History of stress test Cardiology follow-up encounter Obstructive sleep apnea CHF with right heart failure Diastolic CHF, chronic Right ventricular dilation Essential hypertension Osteopenia Vitamin D deficiency 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) Hypophosphatemia Hip pain Prolonged QT interval Chronic diarrhea Nonrheumatic mitral (valve) insufficiency Secondary pulmonary arterial hypertension Non-rheumatic tricuspid valve insufficiency Degenerative disc disease, cervical Cervical spondylosis Narcolepsy Lupus nephritis SLE (systemic lupus erythematosus) Home Medications ?Medication ?Instructions ?Recorded ?Last Taken ?Type prednisone 5 mg tablet 5 mg PO DAILY steroid for mary anne pus 07/08/20 08/22/24 08:16 History levocetirizine 5 mg tablet 5 mg PO DAILY ALLERGIES 12/3108/22/24 08:15 History blood sugar diagnostic #10 ea 11/04/20 Unknown Hist ory lancets 33 gauge #100 ea 11/04/20 Unknown His tory pregabalin 150 mg capsule 150 mg PO BID neuropathy 08/22/24 08:17 History OneTouch Verio test strips (blood #360 ea 04/17/21 Unk nown Rx sugar diagnostic) hydroxychloroquine 200 mg tablet 200 mg PO DAILY antim alarial 07/08/21 08/22/24 08:13 History acetaminophen 500 mg tablet 500 mg PO Q6H PRN pain/fev er 11/25/21 Unknown History ketoconazole 2 % shampoo 1 applic topical DAILY hair loss 01/04/22 10/31/23 History desvenlafaxine succinate 100 mg 100 mg PO DAILY ANTIDE PRESSANT 02/19/22 08/22/24 08:09 History tablet,extended release 24 hr Dexcom G6 Acls Nurse #1 ea 03/04/22 Unknown Rx (blood-glucose,production support consultant,cont) cevimeline 30 mg capsule (Evoxac) 1 cap PO TID dry dee th 05/05/22 08/22/24 08:08 History BD Ultra-Fine Mini Pen Needle 31 #100 ea 06/30/22 Unkn own Rx gauge x 3/16 (pen needle, diabetic) mycophenolate mofetil 250 mg 500 mg PO BID anti reject ion 03/04/23 08/22/24 08:16 History capsule (CellCept) mirtazapine 15 mg tablet 15 mg PO QHS sleep 03/05/23 08/21/24 20:15 History alpha lipoic acid 600 mg capsule 600 mg PO DAILY neuro que 02/17/24 08/21/24 20:04 History bumetanide 1 mg tablet 1 mg PO .qd fluid retention 02/17/24 08/21/24 20:05 History carvedilol 6.25 mg tablet 6.25 mg PO BID heart functio n 02/17/24 08/22/24 08:07 History fluticasone propionate 50 1 spray intranasal DAILY PRN 02/17/24 Unknown History mcg/actuation nasal allergies spray,suspension (Flonase Allergy Relief) warfarin 3 mg tablet 3 mg PO .qd heart valve 03/0605/25/24 History insulin pump cart,automated,BT #45 ea 04/07/24 Unknown Rx (Omnipod 5 G6 Pods (Gen 5) subcutaneous cartridge) loperamide 2 mg capsule (Imodium 2 mg PO Q6H PRN diarr hea 05/29/24 08/22/24 08:15 History A-D) empagliflozin 10 mg tablet 10 mg PO QDAY diabetes 06/0608/22/24 08:11 History (Jardiance) aspirin 81 mg tablet,delayed 81 mg PO DAILY heart heal th 08/01/24 08/22/24 08:04 History release budesonide 1 mg/2 mL suspension 1 mg irrigation TID ch ronic 08/01/24 08/22/24 08:40 History for nebulization sinusitis cyclosporine modified 25 mg capsule 25 mg PO Q12H anti rejection 08/01/24 Unknown History efinaconazole 10 % topical 1 applic topical .qd PRN na il 08/01/24 Unknown History solution with applicator (Jugabrielaia) fungus ketorolac 0.5 % eye drops 1 drp LEFT EYE 4X/DAY allerg ies 08/01/24 08/22/24 12:00 History diclofenac sodium 1 % topical gel 4.5 inch topical TID PRN JOINT PAIN 08/22/24 Unknown History ipratropium 20 mcg-albuterol 100 2 puff inhalation RACHAEL LY PRN 08/22/24 Unknown History mcg/actuation mist for inhalation wheezing (Combivent Respimat) oxycodone 5 mg tablet 5 mg PO TID PRN PRN pain 07/0608/21/24 History sodium chloride 0.9 % irrigation 1 irrig irrigation TI D chronic 08/22/24 08/22/24 08:35 History solution sinusitis insulin pump cart,auto,BT,G6/7 #45 ea 09/25/24 Unknown Rx (Omnipod 5 G6-G7 Pods (Gen 5) subcutaneous cartridge) blood sugar diagnostic (OneTouch #100 ea 11/06/24 Unkn own Rx Verio test strips) lancets 33 gauge #200 ea 11/07/24 Unknown Rx Dexcom G6 Transmitter #1 ea 12/13/24 Unknown Rx (blood-glucose transmitter) ferrous sulfate 325 mg (65 mg 325 mg PO BID 03/19/25 U nknown History iron) tablet Dexcom G6 Sensor (blood-glucose #3 ea 06/13/25 Unknown Rx sensor) Humalog U-100 Insulin 100 unit/mL 100 unit subcut GILDARDO Y diabetes #90 06/13/25 Unknown Rx subcutaneous solution (insulin mL lispro) metoprolol tartrate 50 mg tablet 50 mg PO BID 07/16/25 Unknown History Allergy/AdvReac Type Severity Reaction Status Date / Time LONG Inhibitors Allergy Angioedema Verified 07/16/25 14:14 adhesive Allergy Rash Verified 07/16/25 14:14 lisinopril Allergy Angioedema Verified 07/16/25 14:14 Sulfa (Sulfonamide Allergy Rash Verified 07/16/25 14:14 Antibiotics) sulfamethoxazole (From Allergy Rash Verified 07/16/25 14:14 Bactrim) trimethoprim (From Bactrim) Allergy Rash Verified 07/16/25 14:14 tuberculin, purified protein Allergy Unknown Verified 07/16/25 14:14 deriva Family History Mother Hypertension Kidney disease ALS (amyotrophic lateral sclerosis) Father Heart disease Hypertension Kidney disease Diabetes Brother Melanoma Surgical History (Updated 07/26/25 @ 10:[address] Rigo Llamas MD) Status post kidney transplant History of kidney removal Tricuspid valve replaced Transplant recipient History of dilation and curettage History of biopsy History of right hip replacement Hx of right heart catheterization Kidney transplant recipient Hip replacement planned History of left heart catheterization (03/08/20) revision of right hip arthroplasty (05/10/19) port removed Status post carpal tunnel release Status post total hip replacement, bilateral S/P lymph node biopsy S/P colonoscopy History of esophagogastroduodenoscopy (EGD) S/P nasal polypectomy Social History household members: family housing: house Smoking Status: Never smoker alcohol intake: never substance use type: does not use caffeine: No what type of physical activity do you participate in: other details: PT seatbelt use: always do you feel safe at home: Yes additional social history: Single Physical Exam Const oriented x3 and no apparent distress General Appearance: lethargic HEENT normocephalic and head/scalp atraumatic Eyes PERRL and EOMs intact bilaterally Neck supple and No nodes Resp clear to auscultation bilaterally Auscultation: diminished lung sounds Cardio no murmurs Rate: tachycardic GI GI Narrative: moderate distension, nontender Extremity General Extremity: edema Skin no rashes or lesions noted Neuro CN's II-XII intact bilaterally Lab / Micro Data Attestation: I reviewed the patient's lab results. 07/26/25 05:23 07/26/25 05:23 Labs: Laboratory Results - last 24 hr 07/25/25 13:06: WBC 13.1 H, RBC 4.13 L, Hgb 11.6 L, Hct 37.3, MCV 90.3, MCH 28.1, MCHC 31.1 L, RDW Std Deviation 57.5 H, RDW Coeff of Jah 18.6 H, Plt Count 162, MPV 9.9, Immature Gran % (Auto) 1.000 H, Neut % (Auto) 79.5 H, Lymph % (Auto) 6.8 L, [place]gs % (Auto) 11.4 H, Eos % (Auto) 1.1, Baso % (Auto) 0.2, A bsolute Neuts (auto) 10.4 H, Absolute Lymphs (auto) 0.89, Nucleated RBC % 0, PT 26.3 H, INR 2.4, APTT 45.2 H, Sodium 139, Potassium 4.9, Chloride 106, Carbon Dioxide 23.5, Anion Gap 10, BUN 51 H, Creatinine 1.94 H, Est GFR (MDRD) Non-Af 31 L, BUN/Creatinine Ratio 26.2 H, Glucose 121 H, Calcium 8.9, Total Bilirubin 2.98 H, AST 48 H, ALT 10, Alkaline Phosphatase 96, Total Creatine Kinase 445 H, Troponin T High Sens 73 H*, NT pro BNP II H, Total Protein 6.0, Albumin 2.7 L, Globulin 3.3, Albumin/Globulin Ratio 0.8 L, Lipase 13 07/25/25 15:40: Lactic Acid 1.2, Ammonia 25.0 07/25/25 16:28: Urine Color Yellow, Urine Clarity Clear, Urine pH 5.0, Ur Specific [place] 1.020, Urine Protein 30 H, Urine Glucose (UA) 250 H, Urine Ketones Negative, Urine Occult Blood 10 H, Urine Nitrite Negative, Urine Bilirubin Negative, Urine Urobilinogen 4 H, Ur Leukocyte Esterase Negative, Urine RBC 0-5 SEEN, Urine WBC 0-5 SEEN, Ur Squamous Epith Cells 0-5 SEEN, Ur Transition Epith Cell 0-5 SEEN, Urine Bacteria 0 SEEN, Urine Mucus 0 SEEN 07/25/25 17:00: Troponin T Hi Sens 2 Hr 59 H* 07/25/25 19:00: Troponin T Hi Sens 4Hr 63 H* 07/25/25 22:45: POC Glucose 124 H 07/26/25 05:23: WBC 10.1, RBC 3.79 L, Hgb 10.5 L, Hct 33.8 L, MCV 89.2, MCH 27.7, MCHC 31.1 L, RDW Std Deviation 57.3 H, RDW Coeff of Jah 18.7 H, Plt Count 134 L, MPV 10.3, Immature Gran % (Auto) 0.700, Neut % (Auto) 78.7 H, Lymph % (Auto) 6.9 L, [place]gs % (Auto) 12.2 H, Eos % (Auto) 1.4, Baso % (Auto) 0.1, A bsolute Neuts (auto) 8.0 H, Absolute Lymphs (auto) 0.70 L, Nucleated RBC % 0, Sodium 140, Potassium 4.3, Chloride 110 H, Carbon Dioxide 23.1, Anion Gap 7, BUN 46 H, Creatinine 1.75 H, Estim Creat Clear Calc 38.22 L, Est GFR (MDRD) Non-Af 35 L, BUN/Creatinine Ratio 26.4 H, Glucose 106 H, Calcium 8.7, Total Bilirubin 2.70 H, Direct Bilirubin 2.08 H, AST 36 H, ALT 9, Alkaline Phosphatase 86, Total Protein 5.4 L, Albumin 2.5 L, Globulin 3.0 07/26/25 06:41: POC Glucose 104 Micro: Microbiology 07/25/25 16:28 Urine, Random Legionella Antigen - Final 07/25/25 16:28 Urine, Random Streptococcus pneumoniae Antigen (M - Final 07/25/25 15:40 Mucosa - Nose SARS-CoV-2, Influenza & RSV (PCR) - Final Rhythm Strip Rhythm Strip: Sinus Tach Rate: 119 Ectopy: None Imaging Radiology Impression Brain CT 07/25/25 14:55 IMPRESSION: NORMAL NONCONTRAST HEAD CT. Sinusitis. Reading Location: [facility] Hip/Pelvis X-Ray 07/25/25 14:55 IMPRESSION: No evidence of acute fracture or dislocation. Bilateral hip arthroplasties with intact appearing hardware. Reading Location: [facility] Chest X-Ray 07/25/25 15:20 IMPRESSION: Cardiomegaly. Layering left-sided pleural effusion. Reading Location: [facility] Chest CT 07/25/25 19:50 IMPRESSION: 1. [id number] layering left pleural effusion. 2. Scattered ground-glass opacities throughout the right lung suggestive of atypical pneumonia. 3. Hepatic cirrhosis with small volume abdominal ascites. Reading [facility] Abdomen Ultrasound 07/25/25 21:06 IMPRESSION: Ascites as above. Reading Location: [id number]
--- NOTE | 2025-07-26 10:23 | US_ITS ---
PROCEDURE: THORACENTESIS W US 07/26/2025 REASON FOR EXAM: RECURRENT LEFT PLEURAL EFFUSION TECHNIQUE: THORACENTESIS W US. The procedure as well as the benefits and possible complications including bleeding infection and pneumothorax were explained to the patient. Informed consent was obtained. The overlying skin was prepped and draped in the usual sterile fashion. Following local anesthetic application and under direct sonographic guidance, a 5 Amharic catheter was placed into the left pleural space. 470 mL of clear thu colored fluid was aspirated. A 100 mL sample was sent to the laboratory. COMPARISON: None FINDINGS: Successful ultrasound-guided left thoracentesis. US/Thoracentesis W US IMPRESSION: Successful ultrasound-guided left thoracentesis. The patient tolerated the pro cedure well. No immediate complication noted. Reading Location: [place] [id number]
--- NOTE | 2025-07-26 10:27 | US_ITS ---
PROCEDURE: PARACENTESIS WITH US 07/27/2025 REASON FOR EXAM: ASCITES TECHNIQUE: PARACENTESIS WITH US. The procedure as well as the benefits and possible complications including infection and bleeding were explained to the patient. Informed consent was obtained. The overlying skin was prepped and draped in the usual sterile fashion. Following local anesthetic application and under direct sonographic guidance, a 5 Samoan drainage catheter was placed into the right lower quadrant. 1220 thu colored fluid was aspirated. A specimen was sent to the laboratory for analysis. The patient tolerated the procedure well. COMPARISON: None FINDINGS: Successful ultrasound-guided right paracentesis. US/Paracentesis with US IMPRESSION: Successful ultrasound-guided right paracentesis. The patient tolerated the pro cedure well. No immediate complication was noted. Reading Location: [place] [id number]
--- NOTE | 2025-07-26 10:32 | ECHOD_ITS ---
Reason For Study : DYSPNEA/SOB Procedure This was a 2D Doppler, Color Flow transthoracic echocardiogram. The study was technically difficult. The patient was scanned supine. Exam performed portable in ICU/CCU. Left Ventricle Normal left ventricular thickness. The left ventricular ejection fraction is 50 %. Stage 2 diastolic dysfunction. There is mild global hypokinesis of the left ventricle. Right Ventricle Normal RV size. Normal systolic function. Atria Normal left atrium. Normal right atrium. Mitral Valve Normal mitral valve. Mild-Moderate (1-2+) eccentric mitral valve insufficiency. Tricuspid Valve Mild (1+) tricuspid valve insufficiency. Bioprosthetic tricuspid valve. Thickening of the septal prosthetic leaflet noted. No obvious vegetation present. Aortic Valve Trisinus/trileaflet aortic valve. Pulmonic Valve Normal pulmonic valve. Great Vessels Normal aortic root. The pulmonary artery is normal size. Inferior vena cava collapse with respiration. Pericardium/Pleural No pericardial effusion. MMode/2D Measurements & Calculations LVIDd: 4.8 cm IVSd: 0.97 cm Ao root diam: 3.1 cm LVIDs: 3.8 cm LVPWd: 1.0 cm RVDd: 2.9 cm FS: 20.5 % LAV(MOD-bp): 42.6 ml LVAd ap4: 24.9 cm2 LVAd ap2: 24.3 cm2 LAV(MOD-bp) Indexed: 23.1 ml/m2 LVLd ap4: 7.0 cm LVLd ap2: 6.8 cm LAV(MOD-sp2): 50.7 ml EDV(MOD-sp4): 73.4 ml EDV(MOD-sp2): 72.6 ml LAV(MOD-sp4): 32.7 ml EDV(sp4-el): 75.4 ml EDV(sp2-el): 74.1 ml LVAs ap4: 17.0 cm2 LVAs ap2: 16.3 cm2 LVLs ap4: 6.1 cm LVLs ap2: 5.8 cm ESV(MOD-sp4): 39.0 ml ESV(MOD-sp2): 40.6 ml ESV(sp4-el): 39.9 ml ESV(sp2-el): 38.7 ml EF(MOD-sp4): 46.9 % EF(MOD-sp2): 44.0 % EF(sp4-el): 47.1 % SV(MOD-sp4): 34.4 ml SV(MOD-sp2): 32.0 ml SV(sp4-el): 35.5 ml SI(MOD-sp4): 18.7 ml/m2 SI(MOD-sp2): 17.4 ml/m2 LA A4 area: 16.0 cm2 LA dimension(2D): 3.8 cm RA A4 area: 13.4 cm2 Time Measurements MV dec time: 0.12 sec Doppler Measurements & Calculations MV E max mike: 80.8 cm/sec MV V2 max: 103.4 cm/sec MV P1/2t max mike: 88.3 cm/sec MV A max mike: 41.2 cm/sec MV max P.3 mmHg MV P1/2t: 53.7 msec MV E/A: 2.0 MV V2 mean: 56.6 cm/sec MV dec slope: 481.7 cm/sec2 MV mean P.5 mmHg MVA(P1/2t): 4.1 cm2 MV V2 VTI: 15.7 cm Ao V2 max: 108.1 cm/sec LV V1 max: 72.9 cm/sec MR max mike: 388.2 cm/sec Ao max P.7 mmHg LV V1 max P.1 mmHg MR max P.3 mmHg Ao V2 mean: 80.7 cm/sec LV V1 mean P.0 mmHg MR mean mike: 299.8 cm/sec Ao mean P.8 mmHg LV V1 mean: 47.8 cm/sec MR mean P.3 mmHg Ao V2 VTI: 14.6 cm LV V1 VTI: 9.5 cm MR VTI: 105.1 cm AV (velocity ratio): 0.65 TV V2 max: 164.2 cm/sec PA V2 max: 76.9 cm/sec TR max mike: 165.7 cm/sec TV max P.8 mmHg TR max P.0 mmHg TV V2 mean: 98.9 cm/sec TV mean P.8 mmHg ECHO/Echo Complete Interpretation Summary The left ventricular ejection fraction is 50 %. Normal left ventricular thickness. Stage 2 diastolic dysfunction. Bioprosthetic tricuspid valve. Thickening of the septal prosthetic leaflet noted. No obvious vegetation presen t. Ordering Physician: Drew Goode Referring Physician: Mitchell Bowen chi Performed By: Joleen Walter RDCS, RVT
--- NOTE | 2025-07-26 11:07 | CASEMGMT ---
Tertiary Insurance review for hospitals In-network with?[facility] DUAL insurance if transfer is recommended is as follows: [facility], [facility], [place], [facility], [facility], [facility], . Gabriella Garces, Discharge Planning Asst.
--- NOTE | 2025-07-26 11:13 | PCM.CONS.R ---
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 Chest x-ray showed layering left-sided pleural effusion, chest CT small to moderate layering left pleural effusion, hepatic cirrhosis with small volume abdominal ascites, scattered ground glass opacities throughout right lung suggestive of atypical pneumonia. In ER lactic acid 1.2, CPK 445. Nephrology consulted as patient has history of ESRD status post donor kidney transplant 2019, CKD stage III. Yesterday creatinine 1.94 and today serum creatinine 1.75. Per patient she has good urine output. Overall renal function stable and serum creatinine appears near baseline, potassium and bicarb normal and volume status appears compensated. Continue immunosuppressants as ordered. Patient did have paracentesis (1.2 L removed) and thoracentesis (approximately 680 mL fluid removal) on July 07. Patient is on Bumex 1 mg daily. Patient is waiting for transfer to facility. Thank you for allowing us participate in the care of Ms. Plummer, further orders forthcoming as hospitalization evolves, assessment and plan reviewed with Dr. Taylor. HPI Consult Data Date of Consult: 07/26/25 HPI Narrative HPI Narrative: PAVITHRA PLUMMER, is a 54 F who presented to the emergency room yesterday with complaints of difficulty breathing, fluid retention in her feet and low blood pressure. Workup in the emergency room revealed elevated white count 13,000, CPK 445, chest x-ray showed cardiomegaly with layering left-sided pleural effusion, blood pressure in the emergency room 86/65. [facility] was contacted and accepted patient but bed not available at this time therefore patient admitted to ICU for probable pneumonia, hypotension, pleural effusion and ascites. 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 Nephrology consulted in view of history of CKD. Today patient states swelling to her feet have improved, patient also states breathing has improved. She is on room air now. Denies any recent nausea, vomiting. States she was recently on antibiotic and increased steroid dose for sinus infection. Patient reports no recent change to her immunosuppression therapy. Patient reports compliancy with her immunosuppressants. [facility] Medical History (Updated 07/26/25 @ 11:20 by BEVERLEY Bradshaw) Chronic kidney disease, stage 3b Colon polyp Cataract (lens) fragments in eye following cataract surgery, bilateral Diabetic foot ulcer associated with diabetes mellitus due to underlying condition History of renal cell cancer Debility Immunosuppression due to drug therapy Decubitus ulcer of right buttock, stage 3 Decubitus ulcer of left buttock, stage 3 Polyneuropathy due to type 2 diabetes mellitus Chronic sinusitis Incisional hernia CKD (chronic kidney disease) stage 4, GFR 15-29 ml/min Wears glasses Wears dentures Post-menopausal Insulin dependent diabetes mellitus Uses wheelchair Walker as ambulation aid Ambulates with cane Lupus Fatty liver Gastric reflux Non-smoker CPAP (continuous positive airway pressure) dependence Shortness of breath on exertion History of echocardiogram History of stress test Cardiology follow-up encounter Obstructive sleep apnea CHF with right heart failure Diastolic CHF, chronic Right ventricular dilation Essential hypertension Osteopenia Vitamin D deficiency 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) Hypophosphatemia Hip pain Prolonged QT interval Chronic diarrhea Nonrheumatic mitral (valve) insufficiency Secondary pulmonary arterial hypertension Non-rheumatic tricuspid valve insufficiency Degenerative disc disease, cervical Cervical spondylosis Narcolepsy Lupus nephritis SLE (systemic lupus erythematosus) Home Medications ?Medication ?Instructions ?Recorded ?Last Taken ?Type prednisone 5 mg tablet 5 mg PO DAILY steroid for lupus 07/08/20 08/22/24 08:16 History levocetirizine 5 mg tablet 5 mg PO DAILY ALLERGIES 07/17/20 08/22/24 08:15 History blood sugar diagnostic #10 ea 11/04/20 Unknown History lancets 33 gauge #100 ea 11/04/20 Unknown History pregabalin 150 mg capsule 150 mg PO BID neuropathy 03/31/21 08/22/24 08:17 History OneTouch Verio test strips (blood #360 ea 04/17/21 Unknown Rx sugar diagnostic) hydroxychloroquine 200 mg tablet 200 mg PO DAILY antimalarial 07/08/21 08/22/24 08:13 History acetaminophen 500 mg tablet 500 mg PO Q6H PRN pain/fever 11/25/21 Unknown History ketoconazole 2 % shampoo 1 applic topical DAILY hair loss 01/04/22 10/31/23 History desvenlafaxine succinate 100 mg 100 mg PO DAILY ANTIDEPRESSANT 02/19/22 08/22/24 08:09 History tablet,extended release 24 hr Dexcom G6 Roll Forming Machine Set Up Operator #1 ea 03/04/22 Unknown Rx (blood-glucose,reactor technician,cont) cevimeline 30 mg capsule (Evoxac) 1 cap PO TID dry mouth 05/05/22 08/22/24 08:08 History BD Ultra-Fine Mini Pen Needle 31 #100 ea 06/30/22 Unknown Rx gauge x 3/16 (pen needle, diabetic) mycophenolate mofetil 250 mg 500 mg PO BID anti rejection 03/04/23 08/22/24 08:16 History capsule (CellCept) mirtazapine 15 mg tablet 15 mg PO QHS sleep 03/05/23 08/21/24 20:15 History alpha lipoic acid 600 mg capsule 600 mg PO DAILY neuropathy 02/17/24 08/21/24 20:04 History bumetanide 1 mg tablet 1 mg PO .qd fluid retention 02/17/24 08/21/24 20:05 History carvedilol 6.25 mg tablet 6.25 mg PO BID heart function 02/17/24 08/22/24 08:07 History fluticasone propionate 50 1 spray intranasal DAILY PRN 02/17/24 Unknown History mcg/actuation nasal allergies spray,suspension (Flonase Allergy Relief) warfarin 3 mg tablet 3 mg PO .qd heart valve 02/17/24 05/25/24 History insulin pump cart,automated,BT #45 ea 04/07/24 Unknown Rx (Omnipod 5 G6 Pods (Gen 5) subcutaneous cartridge) loperamide 2 mg capsule (Imodium 2 mg PO Q6H PRN diarrhea 05/29/24 08/22/24 08:15 History A-D) empagliflozin 10 mg tablet 10 mg PO QDAY diabetes 06/21/24 08/22/24 08:11 History (Jardiance) aspirin 81 mg tablet,delayed 81 mg PO DAILY heart health 08/01/24 08/22/24 08:04 History release budesonide 1 mg/2 mL suspension 1 mg irrigation TID chronic 08/01/24 08/22/24 08:40 History for nebulization sinusitis cyclosporine modified 25 mg capsule 25 mg PO Q12H antirejection 08/01/24 Unknown History efinaconazole 10 % topical 1 applic topical .qd PRN nail 08/01/24 Unknown History solution with applicator (Jublia) fungus ketorolac 0.5 % eye drops 1 drp LEFT EYE 4X/DAY allergies 08/01/24 08/22/24 12:00 History diclofenac sodium 1 % topical gel 4.5 inch topical TID PRN JOINT PAIN 08/22/24 Unknown History ipratropium 20 mcg-albuterol 100 2 puff inhalation DAILY PRN 08/22/24 Unknown History mcg/actuation mist for inhalation wheezing (Combivent Respimat) oxycodone 5 mg tablet 5 mg PO TID PRN PRN pain 08/22/24 08/21/24 History sodium chloride 0.9 % irrigation 1 irrig irrigation TID chronic 08/22/24 08/22/24 08:35 History solution sinusitis insulin pump cart,auto,BT,G6/7 #45 ea 09/25/24 Unknown Rx (Omnipod 5 G6-G7 Pods (Gen 5) subcutaneous cartridge) blood sugar diagnostic (OneTouch #100 ea 11/06/24 Unknown Rx Verio test strips) lancets 33 gauge #200 ea 11/07/24 Unknown Rx Dexcom G6 Transmitter #1 ea 12/13/24 Unknown Rx (blood-glucose transmitter) ferrous sulfate 325 mg (65 mg 325 mg PO BID 03/19/25 Unknown History iron) tablet Dexcom G6 Sensor (blood-glucose #3 ea 06/13/25 Unknown Rx sensor) Humalog U-100 Insulin 100 unit/mL 100 unit subcut DAILY diabetes #90 06/13/25 Unknown Rx subcutaneous solution (insulin mL lispro) metoprolol tartrate 50 mg tablet 50 mg PO BID 07/16/25 Unknown History Allergy/AdvReac Type Severity Reaction Status Date / Time LONG Inhibitors Allergy Angioedema Verified 07/16/25 14:14 adhesive Allergy Rash Verified 07/16/25 14:14 lisinopril Allergy Angioedema Verified 07/16/25 14:14 Sulfa (Sulfonamide Allergy Rash Verified 07/16/25 14:14 Antibiotics) sulfamethoxazole (From Allergy Rash Verified 07/16/25 14:14 Bactrim) trimethoprim (From Bactrim) Allergy Rash Verified 07/16/25 14:14 tuberculin, purified protein Allergy Unknown Verified 07/16/25 14:14 deriva Family History Mother Hypertension Kidney disease ALS (amyotrophic lateral sclerosis) Father Heart disease Hypertension Kidney disease Diabetes Brother Melanoma Surgical History (Updated 07/26/25 @ 11:20 by Marie Seth NP-Yan) Status post kidney transplant History of kidney removal Tricuspid valve replaced Transplant recipient History of dilation and curettage History of biopsy History of right hip replacement Hx of right heart catheterization Kidney transplant recipient Hip replacement planned History of left heart catheterization (03/08/20) revision of right hip arthroplasty (05/10/19) port removed Status post carpal tunnel release Status post total hip replacement, bilateral S/P lymph node biopsy S/P colonoscopy History of esophagogastroduodenoscopy (EGD) S/P nasal polypectomy Social History household members: family housing: house Smoking Status: Never smoker alcohol intake: never substance use type: does not use caffeine: No what type of physical activity do you participate in: other details: PT seatbelt use: always do you feel safe at home: Yes additional social history: Single ROS ROS Narrative As in HPI otherwise negative Physical Exam Narrative Alert and oriented, no apparent distress S1, S2, RRR Lungs sound clear anteriorly, diminished breath sounds posterior bases. No wheezes, rhonchi or rales. On room air Abdomen soft, nontender No pitting edema noted to bilateral lower legs or feet Lab / Micro Data 07/26/25 05:23 07/26/25 05:23 Labs: Laboratory Results - last 24 hr 07/25/25 13:06: WBC 13.1 H, RBC 4.13 L, Hgb 11.6 L, Hct 37.3, MCV 90.3, MCH 28.1, MCHC 31.1 L, RDW Std Deviation 57.5 H, RDW Coeff of Jah 18.6 H, Plt Count 162, MPV 9.9, Immature Gran % (Auto) 1.000 H, Neut % (Auto) 79.5 H, Lymph % (Auto) 6.8 L, [place] % (Auto) 11.4 H, Eos % (Auto) 1.1, Baso % (Auto) 0.2, Absolute Neuts (auto) 10.4 H, Absolute Lymphs (auto) 0.89, Nucleated RBC % 0, PT 26.3 H, INR 2.4, APTT 45.2 H, Sodium 139, Potassium 4.9, Chloride 106, Carbon Dioxide 23.5, Anion Gap 10, BUN 51 H, Creatinine 1.94 H, Est GFR (MDRD) Non-Af 31 L, BUN/Creatinine Ratio 26.2 H, Glucose 121 H, Calcium 8.9, Total Bilirubin 2.98 H, AST 48 H, ALT 10, Alkaline Phosphatase 96, Total Creatine Kinase 445 H, Troponin T High Sens 73 H*, NT pro BNP II H, Total Protein 6.0, Albumin 2.7 L, Globulin 3.3, Albumin/Globulin Ratio 0.8 L, Lipase 13 07/25/25 15:40: Lactic Acid 1.2, Ammonia 25.0 07/25/25 16:28: Urine Color Yellow, Urine Clarity Clear, Urine pH 5.0, Ur Specific [place] 1.020, Urine Protein 30 H, Urine Glucose (UA) 250 H, Urine Ketones Negative, Urine Occult Blood 10 H, Urine Nitrite Negative, Urine Bilirubin Negative, Urine Urobilinogen 4 H, Ur Leukocyte Esterase Negative, Urine RBC 0-5 SEEN, Urine WBC 0-5 SEEN, Ur Squamous Epith Cells 0-5 SEEN, Ur Transition Epith Cell 0-5 SEEN, Urine Bacteria 0 SEEN, Urine Mucus 0 SEEN 07/25/25 17:00: Troponin T Hi Sens 2 Hr 59 H* 07/25/25 19:00: Troponin T Hi Sens 4Hr 63 H* 07/25/25 22:45: POC Glucose 124 H 07/26/25 05:23: WBC 10.1, RBC 3.79 L, Hgb 10.5 L, Hct 33.8 L, MCV 89.2, MCH 27.7, MCHC 31.1 L, RDW Std Deviation 57.3 H, RDW Coeff of Jah 18.7 H, Plt Count 134 L, MPV 10.3, Immature Gran % (Auto) 0.700, Neut % (Auto) 78.7 H, Lymph % (Auto) 6.9 L, [place] % (Auto) 12.2 H, Eos % (Auto) 1.4, Baso % (Auto) 0.1, Absolute Neuts (auto) 8.0 H, Absolute Lymphs (auto) 0.70 L, Nucleated RBC % 0, Sodium 140, Potassium 4.3, Chloride 110 H, Carbon Dioxide 23.1, Anion Gap 7, BUN 46 H, Creatinine 1.75 H, Estim Creat Clear Calc 38.22 L, Est GFR (MDRD) Non-Af 35 L, BUN/Creatinine Ratio 26.4 H, Glucose 106 H, Calcium 8.7, Total Bilirubin 2.70 H, Direct Bilirubin 2.08 H, AST 36 H, ALT 9, Alkaline Phosphatase 86, Total Protein 5.4 L, Albumin 2.5 L, Globulin 3.0 07/26/25 06:41: POC Glucose 104 Micro: Microbiology 07/25/25 16:28 Urine, Random Legionella Antigen - Final 07/25/25 16:28 Urine, Random Streptococcus pneumoniae Antigen (M - Final 07/25/25 15:40 Mucosa - Nose SARS-CoV-2, Influenza & RSV (PCR) - Final Rhythm Strip Rhythm Strip: Sinus Tach Rate: 119 Ectopy: None Imaging Radiology Impression Brain CT 07/25/25 14:55 IMPRESSION: NORMAL NONCONTRAST HEAD CT. Sinusitis. Reading Location: [facility] Hip/Pelvis X-Ray 07/25/25 14:55 IMPRESSION: No evidence of acute fracture or dislocation. Bilateral hip arthroplasties with intact appearing hardware. Reading Location: [facility] Chest X-Ray 07/25/25 15:20 IMPRESSION: Cardiomegaly. Layering left-sided pleural effusion. Reading Location: [facility] Chest CT 07/25/25 19:50 IMPRESSION: 1. [id number]-sawxhhum layering left pleural effusion. 2. Scattered ground-glass opacities throughout the right lung suggestive of atypical pneumonia. 3. Hepatic cirrhosis with small volume abdominal ascites. Reading Location: [facility] Abdomen Ultrasound 07/25/25 21:06 IMPRESSION: Ascites as above. Reading Location: [id number]
--- NOTE | 2025-07-26 11:23 | CASEMGMT ---
Social Work- SW attempted to meet with pt; pt sleeping and not easily awoken. SW will attempt at a later time to meet for SDOH assessment. Pt is awaiting transfer to . [facility]
[2025-07-26 13:04] LABS: LDH 310 U/L (84-246)
--- NOTE | 2025-07-26 13:45 | RAD_ITS ---
PROCEDURE: CHEST INSP/EXP 2 VIEW 07/26/2025 REASON FOR EXAM: POST THORACENTESIS TECHNIQUE: Procedure Code: RADCXRINSPEXP Modality: DX Procedure: CHEST INSP/EXP 2 VIEW AP inspiration expiration views were obtained. COMPARISON: July 25, 2025. FINDINGS: No evidence of pneumothorax following the left thoracentesis. Mild residual pleural-parenchymal changes at the left lung base. Prosthetic heart valve. RAD/Chest Insp/Exp 2 View IMPRESSION: Mild residual pleural-parenchymal changes at the left lung base. No evidence of pneumothorax. Reading Location: [facility]
--- NOTE | 2025-07-26 14:05 | FLU_PTH ---
PATIENT: PAVITHRA PAINTER LOC: [facility] U#:[id number] AGE/SX: 54/F ROOM: [facility] RE07/25/[address]: Dr. Mariza Finch MD : 1970 BED: 1 DIS: 07/28/2025 SPEC #: [id number] RECD: 07/26/25 15:06 STATUS: SOULalita REQ #: [id number] ISAIAH: 07/26/25 14:[address]: Mariza Finch DEPT: CYTOLOGY RECD BY: Jean Carlos Cabrera ENTERED: 07/27/25 08:57 SP TYPE: Fluid OTHR DR: MD Dr. Elpidio Gusman MD Dr. Bruce Arthur, MD Dr. Derek Brown, DO Dr. David P Myers, MD Dr. Edward Matheis, MD Dr. Gautam Baskaran, MD Dr. Yordanos Habtegebriel, MD Dr. Hemant Dand, MD Dr. Jayaprakas Dasari, MD Dr. Jose Ochoa, MD Dr. Justin Wong, MD Dr. Kimber Foust, MD Dr. Lamia Aljundi, MD Dr. Marisa Magana, MD Dr. Mark Tereletsky, DO Dr. Pritam Ghosh, MD Dr. Pavan Irukulla, MD Dr. Robert Leininger, MD Dr. Saad Farooqi, MD Dr. Sukhdeep Dhesi, DO Dr. Sujoy Gill, MD Dr. Soleyah Groves, MD Dr. Timothy Fernstrom, DO Dr. Tai Chi Kwok, MD Dr. Vikram Anand, MD Dr. William Haden, MD Tissues: A - Pleural fluid, NOS Procedures: Special Stain Group II Surgery Specimen Level IV Cytospin Fluid HEADER OPERATION: Ultrasound guided thoracentesis PRE-OP DIAGNOSIS: Left pleural effusion TISSUE SUBMITTED: A- Thoracentesis fluid for cytology DIAGNOSIS CYTOLOGY A. Left pleural effusion, thoracentesis (cytospin, cellblock): - No malignant cells identified. CYTOLOGY STUDY Slides are reviewed. CYTOLOGY GROSS A. Received is 85 ml of [id number] fluid labeled with the patient's name and and designated per the requisition as Thoracentesis fluid. Submitted for cytology and cell block preparation. 07/27/2025 CPT: 07594,62854
[2025-07-26] MEDS: Lidocaine 2% (20 ml mdv) 20 ML Vial INFILT (14:10)
[2025-07-26 15:14] LABS: Cytology, Body Fluid / CSF SEE PATHOLOGY REPORT
[2025-07-26 16:08] LABS: Body Fluid Mononuclear WBC # 0.108 10^3/uL; Body Fluid Mononuclear WBC % 78.9 %; Body Fluid Polynuclear WBC # 0.029 10^3/uL; Body Fluid Polynuclear WBC % 21.1 %; Red Cell Count/Body Fluid 0.010 10^6/ul; White Blood Count/Body Fluid 0.137 10^3/uL
[2025-07-26 16:15] LABS: Glucose, Body Fluid 161 mg/dL (Not Establ.)
[2025-07-26 16:32] LABS: Auto B Fluid Analyzer BKGD Ct COUNTS W/IN LIMITS (W/IN LIMITS); Color/Body Fluid SLIGHTLY PINK; Source- Body Fluid THORACENTESIS
[2025-07-26 16:33] LABS: Appearance/Body Fluid SL CLDY; Body Fluid QC Type(s) BF2Q; Neutrophil (Segs) 20 %
--- NOTE | 2025-07-26 16:49 | PN_ITS ---
Subjective Subjective Patient seen and examined. She was lying comfortably in bed and had no complaints. She had an uneventful night. Review of systems otherwise negative. She is on room air. Objective Data Objective Data Vital Signs: Vital Signs Temp Pulse Resp BP Pulse Ox O2 Del Method 98.0 F 118 H 26 H 91/50 L 95 Room Air 07/26/25 14:53 07/26/25 16:00 07/26/25 16:00 07/26/25 16:00 07/26/25 16:00 07/26/25 16:25 Oxygen Delivery Method Room Air Weight: 173 lb 15.115 oz Body Mass Index (BMI) 29.8 Intake & Output: Intake and Output for Last 24 Hours 07/24/25 07/25/25 07/26/25 23:59 23:59 23:59 Intake Total 825 / 1305 1150 / 1150 Output Total 470 / 470 Balance 825 / 1305 680 / 680 Lab / Micro Data 07/26/25 05:23 07/26/25 05:23 Labs: Laboratory Results - last 24 hr 07/25/25 16:28: Urine Color Yellow, Urine Clarity Clear, Urine pH 5.0, Ur Specific [place] 1.020, Urine Protein 30 H, Urine Glucose (UA) 250 H, Urine Ketones Negative, Urine Occult Blood 10 H, Urine Nitrite Negative, Urine Bilirubin Negative, Urine Urobilinogen 4 H, Ur Leukocyte Esterase Negative, Urine RBC 0-5 SEEN, Urine WBC 0-5 SEEN, Ur Squamous Epith Cells 0-5 SEEN, Ur Transition Epith Cell 0-5 SEEN, Urine Bacteria 0 SEEN, Urine Mucus 0 SEEN 07/25/25 17:00: Troponin T Hi Sens 2 Hr 59 H* 07/25/25 19:00: Troponin T Hi Sens 4Hr 63 H* 07/25/25 22:45: POC Glucose 124 H 07/26/25 05:23: WBC 10.1, RBC 3.79 L, Hgb 10.5 L, Hct 33.8 L, MCV 89.2, MCH 27.7, MCHC 31.1 L, RDW Std Deviation 57.3 H, RDW Coeff of Jah 18.7 H, Plt Count 134 L, MPV 10.3, Immature Gran % (Auto) 0.700, Neut % (Auto) 78.7 H, Lymph % (Auto) 6.9 L, [place] % (Auto) 12.2 H, Eos % (Auto) 1.4, Baso % (Auto) 0.1, A bsolute Neuts (auto) 8.0 H, Absolute Lymphs (auto) 0.70 L, Nucleated RBC % 0, Sodium 140, Potassium 4.3, Chloride 110 H, Carbon Dioxide 23.1, Anion Gap 7, BUN 46 H, Creatinine 1.75 H, Estim Creat Clear Calc 38.22 L, Est GFR (MDRD) Non-Af 35 L, BUN/Creatinine Ratio 26.4 H, Glucose 106 H, Calcium 8.7, Total Bilirubin 2.70 H, Direct Bilirubin 2.08 H, AST 36 H, ALT 9, Alkaline Phosphatase 86, L actate Dehydrogenase 310 H, Total Protein 5.4 L 07/26/25 05:23: Total Protein 5.6 L, Albumin 2.5 L, Globulin 3.0 07/26/25 06:41: POC Glucose 104 07/26/25 11:34: POC Glucose 160 H 07/26/25 14:05: Fluid Source THORACENTESIS, Fluid Color SLIGHTLY PINK, Fluid Appearance SL CLDY, Fluid WBC 0.137, Fluid RBC 0.010, Fluid Tot Cell Count 0.161 H, Fld Polynuclear WBCs # 0.029, Fld Polynuclear WBCs % 21.1, Fluid Mononuclear WBCs 0.108, Fld Mononuclear WBCs % 78.9, Fluid Neutrophils 20, Fluid Lymphocytes 54, Fluid Monocytes 2, Fluid Macrophages 21, Fld Mesothelial Cells 3, Fl Pathologist Comment May follow, Fluid Glucose 161, Fluid Total Protein 1.6, Fluid LDH 76, Fluid Comment 2 SEE COMMENT 07/26/25 16:08: POC Glucose 169 H Micro: Microbiology 07/26/25 08:15 Mucosa - Nasopharyngeal Respiratory Panel (PCR) - Final 07/26/25 09:40 Nasal Secretion MRSA (PCR) - Final 07/25/25 16:28 Urine, Random Legionella Antigen - Final 07/25/25 16:28 Urine, Random Streptococcus pneumoniae Antigen (M - Final 07/25/25 15:40 Mucosa - Nose SARS-CoV-2, Influenza & RSV (PCR) - Final Radiography Diagnostic Testing: Radiology Impression Hip/Pelvis X-Ray 07/25/25 14:55 IMPRESSION: No evidence of acute fracture or dislocation. Bilateral hip arthroplasties with intact appearing hardware. Reading Location: [facility] Chest X-Ray 07/25/25 15:20 IMPRESSION: Cardiomegaly. Layering left-sided pleural effusion. Reading Location: [facility] Chest CT 07/25/25 19:50 IMPRESSION: 1. Rdmhy-qz-cozbrnph layering left pleural effusion. 2. Scattered ground-glass opacities throughout the right lung suggestive of atypical pneumonia. 3. Hepatic cirrhosis with small volume abdominal ascites. Reading Location: [facility] Abdomen Ultrasound 07/25/25 21:06 IMPRESSION: Ascites as above. Reading Location: [id number] Thoracentesis Ultrasound 07/26/25 10:23 IMPRESSION: Successful ultrasound-guided left thoracentesis. The patient tolerated the procedure well. No immediate complication noted. Reading Location: [facility] Chest X-Ray 07/26/25 13:45 IMPRESSION: Mild residual pleural-parenchymal changes at the left lung base. No evidence of pneumothorax. Reading Location: [facility] Rhythm Strip Rhythm Strip: Sinus Tach Rate: 119 Ectopy: None Physical Exam Const alert, oriented x3 and no apparent distress Constitutional Narrative: class III obesity General Appearance: cooperative HEENT normocephalic, head/scalp atraumatic, moist oral mucous membranes and oropharynx normal Eyes EOMs intact bilaterally Neck supple and no JVD Lymph Lymphatic: no lymphedema noted Resp Resp Narrative: Mildly diminished breath sounds bibasilarly. No wheezes or crackles. On room air. Cardio regular rate, regular rhythm, S1 normal heart sound, S2 normal heart sound and no murmurs GI normal to inspection, nondistended, normoactive bowel sounds, soft to palpation and non-tender Extremity normal capillary refill and no clubbing, cyanosis or edema General Extremity: no tenderness to palpation of joints or extremities Skin General Skin Exam: no breakdown Neuro no focal motor deficits and no sensory deficits noted Motor Exam: general weakness Psych thought process normal and cooperative Appearance: appropriate Assessment & Plan Assessment/Plan (1) Pneumonia: PLAN: Plan #Hypoxia due to probable pneumonia with associated pleural effusion * Patient has ESRD with history of renal transplant about 11 months ago. * Was admitted with a complaint of shortness of breath. WBC was elevated though it was thought to be due to recent use of steroids. * Currently being treated for hypoxia due to pneumonia. On broad-spectrum antibiotics. ID and pulmonology consulted. * Thoracentesis ordered. Patient had thoracentesis done today. * Breathing treatments bronchodilators. Titrate oxygen to maintain saturation above 90%. * ID also recommends echo. Continue IV vancomycin and Zosyn * 2D echo showed EF of 50% with stage II diastolic dysfunction and mild global hypokinesis of the left ventricle) evidence of bioprosthetic tricuspid valve with thickening of the septal prosthetic leaflet noted but no obvious vegetations present * On p.o. Bumex #ESRD: S/p kidney transplant in 2019. Was done at . Patient was actually accepted at but admitted here pending bed availability. Nephrology on board. Continue immunosuppressant-mycophenolate and cyclosporine #History of tricuspid valve replacement: Currently on anticoagulants. #History of heart failure preserved ejection fraction: On Bumex and Jardiance. On metoprolol #History of SLE: On hydroxychloroquine and p.o. steroids #Type 1 diabetes mellitus: On insulin pump #History of Sjogren syndrome: Stable #Depression: On venlafaxine #History of renal cell carcinoma s/p nephrectomy: Stable DVT prophylaxis: Heparin Charges/Coding Visit Charges Inpatient E&M: 22254 [facility] Hosp L3
--- NOTE | 2025-07-26 18:37 | PN.HOSP_ITS ---
Hospitalist Note Pt's BP trending down, last BP 83/60 w/MAP 67. Nrsg held her AM dosing of metoprolol 50mg and both doses of carvedilol 6.25mg. HR 115 average. With her narcolepsy, she has had little PO intake today. Thoracentesis removed 470ml, creatinine 1.75. Considering her being s/p kidney transplant, I reviewed above information with her admitting physician and nephrology PURCHASING MANAGER/SALES, Marie Seth. I ordered 500ml NS bolus over 4hrs and midodrine 10mg TID, first dose now.
[2025-07-26] MEDS: Vancomycin HCl 1,000 MG in 0.9% Normal Saline (250mL Bag) 250 ML 250 MG IV (18:50)
[2025-07-26] MEDS: 0.9% Normal Saline (1000mL) 1,000 ML 125 ML IV (18:50)
[2025-07-27] VITALS (18 sets, daily range): BP systolic 99–130; BP diastolic 53–95; PULSE 96–122; RESP 12–21; TEMP 36.2–36.9; O2SAT 95–100; BMI 43.1
--- NOTE | 2025-07-27 03:23 | PCM.HOSP.N ---
Hospitalist Note Follow-up discussion with covering physician after 500 cc IV bolus and midodrine. Since the patient MAP has remained well above 65. He requested to the transfer center her status be changed from ICU to step down/floor status. Will change level of care in accordance.
[2025-07-27 03:50] LABS: Hematocrit 33.9 % (37-47); Hemoglobin 10.6 g/dL (12.0-15.0); Immature Granulocytes Count 0.060 X10^3/uL (0.0-0.0); Mean Corp Hgb Conc 31.3 g/dL (32-36); Mean Corpuscular Volume 88.7 fL (81-99); Mean Platelet Vol. 10.1 fl (6.2-12.0); NRBC Flagged by Analyzer 0 % (0-5); Platelet Count 135 K/mm3 (150-450); RBC Distribution Width CV 18.6 % (11.6-14.6); RBC Distribution Width SD 56.8 fl (35.1-43.9); Red Blood Count 3.82 M/mm3 (4.2-5.4); White Blood Count 9.9 K/mm3 (4.4-11.0)
[2025-07-27 04:30] LABS: Anion Gap 8 (5-15); BUN 42 mg/dL (4-19); BUN/Creat Ratio 26.3 RATIO (10-20); Calcium,Total 8.4 mg/dL (7.6-11.0); Carbon Dioxide 22.2 mmol/L (21.0-32.0); Chloride 109 mmol/L (98-108); Estimated Creatinine Clearance 38.70 ml/min (50-250); Glucose 105 mg/dL (70-99); Potassium 3.7 mmol/L (3.3-5.1)
[2025-07-27] MEDS: 0.9% Saline Lock 10 ML Syringe IV (05:03)
[2025-07-27] MEDS: Piperacil/Tazobactam 3.375 GM in 0.9% Normal Saline (50mL MB+) 50 ML IV ×3 (05:03→23:21)
[2025-07-27] MEDS: Aspirin E.C. 81 MG Tablet PO (08:38)
--- NOTE | 2025-07-27 10:06 | PN.CC_ITS ---
Assessment & Plan Assessment/Plan (1) Weakness: PLAN: Plan RECOMMENDATIONS: 1. Antimicrobials per ID recommendations. 2. Diuresis as tolerated. 3. Continue immunosuppressive regimen. 4. Resume Coumadin and continue to monitor INR daily. 5. The patient is stable for transfer out of the intensive care unit. Will sign off from a critical care perspective. IMPRESSIONS: 1. Weakness and shortness of breath The patient has a known history of renal transplantation in 2019 along with renal cell carcinoma status post left nephrectomy in 2023. She was recently told that she had underlying cirrhosis and has had a left-sided, recurrent pleural effusion, which was evident on repeat imaging on admission. Unfortunately, pleural fluid studies were never sent following the patient's prior thoracentesis. I do suspect that her dyspnea is likely related to her volume status with pleural effusion and ascites noted on imaging. Although her blood pressures are borderline, she has never required vasopressor support. I do not appreciate any significant infiltrate or consolidation on imaging to suggest pneumonia. The patient ultimately underwent ultrasound-guided thoracentesis on July 26 which was transudative in nature. She is scheduled to undergo a diagnostic paracentesis later today. Will defer ongoing need for antimicrobials to ID. The patient is apparently awaiting transfer to [facility], where she receives all of her nephrology related care. She is otherwise clinically stable for transfer out of the intensive care unit. 2. History of chronic kidney disease/cirrhosis/history of SLE/diabetes mellitus/history of renal cell carcinoma status post nephrectomy Complicates care, management, recovery and prognosis. Continue supportive measures as noted above. Nephrology is following to assist with medical management. This note was generated with [employer] dictation software. It may contain incorrect words, spelling, and punctuation that were not noted in checking the note before signing. Subjective Subjective The patient was seen and examined at the bedside this morning. Events from the last 24 hours have been reviewed. The patient is currently afebrile, hemodynamically stable and maintaining appropriate oxygen saturations on room air. The patient did report interval improvement in her breathing quality following thoracentesis yesterday. In total, 470 mL of fluid was removed from the left pleural space, which was transudative in nature. White blood cell count is normal. Hemoglobin and platelet count are stable. Creatinine has improved to 1.58. Objective Data Objective Data The patient's most recent lab work, culture data and imaging studies have all been personally reviewed. Vital Signs: Vital Signs Temp Pulse Resp BP Pulse Ox O2 Del Method 97.7 F L 96 12 99/86 H 97 Room Air 07/27/25 06:00 07/27/25 07:00 07/27/25 06:00 07/27/25 06:00 07/27/25 06:00 07/27/25 09:24 Oxygen Delivery Method Room Air Weight: 178 lb 12.718 oz Body Mass Index (BMI) 43.1 Intake & Output: Intake and Output for Last 24 Hours 07/25/25 07/26/25 07/27/25 23:59 23:59 23:59 Intake Total 825 / 1305 1710 / 1710 1250 / 1250 Output Total 870 / 870 250 / 250 Balance 825 / 1305 840 / 840 1000 / 1000 Lab / Micro Data Attestation: I reviewed the patient's lab results. 07/27/25 03:40 07/27/25 03:40 Labs: Laboratory Results - last 24 hr 07/26/25 05:23: Lactate Dehydrogenase 310 H, Total Protein 5.6 L 07/26/25 11:34: POC Glucose 160 H 07/26/25 14:05: Fluid Source THORACENTESIS, Fluid Color SLIGHTLY PINK, Fluid Appearance SL CLDY, Fluid WBC 0.137, Fluid RBC 0.010, Fluid Tot Cell Count 0.161 H, Fld Polynuclear WBCs # 0.029, Fld Polynuclear WBCs % 21.1, Fluid Mononuclear WBCs 0.108, Fld Mononuclear WBCs % 78.9, Fluid Neutrophils 20, Fluid Lymphocytes 54, Fluid Monocytes 2, Fluid Macrophages 21, Fld Mesothelial Cells 3, Fl Pathologist Comment May follow, Fluid Glucose 161, Fluid Total Protein 1.6, Fluid LDH 76, Fluid Comment 2 SEE COMMENT 07/26/25 16:08: POC Glucose 169 H 07/26/25 21:12: POC Glucose 104 07/27/25 03:40: WBC 9.9, RBC 3.82 L, Hgb 10.6 L, Hct 33.9 L, MCV 88.7, MCH 27.7, MCHC 31.3 L, RDW Std Deviation 56.8 H, RDW Coeff of Jah 18.6 H, Plt Count 135 L, MPV 10.1, Immature Gran % (Auto) 0.600, Neut % (Auto) 78.6 H, Lymph % (Auto) 7.1 L, [place] % (Auto) 11.8 H, Eos % (Auto) 1.6, Baso % (Auto) 0.3, Absolute Neuts (auto) 7.8 H, Absolute Lymphs (auto) 0.70 L, Nucleated RBC % 0, Sodium 140, Potassium 3.7, Chloride 109 H, Carbon Dioxide 22.2, Anion Gap 8, BUN 42 H, C reatinine 1.58 H, Estim Creat Clear Calc 38.70 L, Est GFR (MDRD) Non-Af 39 L, B UN/Creatinine Ratio 26.3 H, Glucose 105 H, Calcium 8.4 07/27/25 06:31: POC Glucose 90 Micro: Microbiology 07/26/25 14:05 Fluid - Thoracentesis Fluid Body Fluid Culture - Preliminary No growth-Final to follow 07/25/25 16:28 Urine, Catheterized Urine Culture - Preliminary Culture exhibits no growth. 07/26/25 08:15 Mucosa - Nasopharyngeal Respiratory Panel (PCR) - Final 07/26/25 09:40 Nasal Secretion MRSA (PCR) - Final 07/25/25 16:28 Urine, Random Legionella Antigen - Final 07/25/25 16:28 Urine, Random Streptococcus pneumoniae Antigen (M - Final 07/25/25 15:40 Mucosa - Nose SARS-CoV-2, Influenza & RSV (PCR) - Final Radiography Diagnostic Testing: Radiology Impression Thoracentesis Ultrasound 07/26/25 10:23 IMPRESSION: Successful ultrasound-guided left thoracentesis. The patient tolerated the procedure well. No immediate complication noted. Reading Location: [facility] Echocardiogram 07/26/25 10:32 Interpretation Summary The left ventricular ejection fraction is 50 %. Normal left ventricular thickness. Stage 2 diastolic dysfunction. Bioprosthetic tricuspid valve. Thickening of the septal prosthetic leaflet noted. No obvious vegetation present. Ordering Physician: Drew Goode Referring Physician: Mitchell Bowen chi Performed By: Joleen Walter, LINUS, RVT Chest X-Ray 07/26/25 13:45 IMPRESSION: Mild residual pleural-parenchymal changes at the left lung base. No evidence of pneumothorax. Reading Location: [place] [address] Rhythm Strip Rhythm Strip: Sinus Tach Rate: 119 Ectopy: None Physical Exam Const alert, oriented x3 and no apparent distress Constitutional Narrative: Obese. Laying in bedside recliner. HEENT normocephalic and head/scalp atraumatic Eyes PERRL, EOMs intact bilaterally and conjunctivae normal Neck supple General: trachea midline Chest inspection of chest normal Resp normal respiratory effort Auscultation: Negative for rales, rhonchi or wheezes Cardio S1 normal heart sound and S2 normal heart sound Rate: tachycardic Rhythm: abnormal rhythm GI normal to inspection, nondistended, normoactive bowel sounds Extremity no clubbing, cyanosis or edema Skin no rashes or lesions noted Neuro CN's II-XII intact bilaterally, moves all extremities and no focal motor deficits Psych cooperative and affect normal Charges/Coding Visit Charges Inpatient E&M: 13525 Subs Hosp L2
--- NOTE | 2025-07-27 11:08 | PN_ITS ---
Subjective Subjective Patient seen and examined. She had no active complaints and felt well. Review of systems otherwise negative. She is mildly tachycardic at 107 today. She had thoracentesis yesterday and is due for paracentesis today. Objective Data Objective Data Vital Signs: Vital Signs Temp Pulse Resp BP Pulse Ox O2 Del Method 97.7 F L 107 H 12 99/86 H 97 Room Air 07/27/25 06:00 07/27/25 10:08 07/27/25 06:00 07/27/25 06:00 07/27/25 06:00 07/27/25 09:24 Oxygen Delivery Method Room Air Weight: 178 lb 12.718 oz Body Mass Index (BMI) 43.1 Intake & Output: Intake and Output for Last 24 Hours 07/25/25 07/26/25 07/27/25 23:59 23:59 23:59 Intake Total 825 / 1305 1710 / 1710 1250 / 1250 Output Total 870 / 870 250 / 250 Balance 825 / 1305 840 / 840 1000 / 1000 Lab / Micro Data 07/27/25 03:40 07/27/25 03:40 Labs: Laboratory Results - last 24 hr 07/26/25 05:23: Lactate Dehydrogenase 310 H, Total Protein 5.6 L 07/26/25 11:34: POC Glucose 160 H 07/26/25 14:05: Fluid Source THORACENTESIS, Fluid Color SLIGHTLY PINK, Fluid Appearance SL CLDY, Fluid WBC 0.137, Fluid RBC 0.010, Fluid Tot Cell Count 0.161 H, Fld Polynuclear WBCs # 0.029, Fld Polynuclear WBCs % 21.1, Fluid Mononuclear WBCs 0.108, Fld Mononuclear WBCs % 78.9, Fluid Neutrophils 20, Fluid Lymphocytes 54, Fluid Monocytes 2, Fluid Macrophages 21, Fld Mesothelial Cells 3, Fl Pathologist Comment May follow, Fluid Glucose 161, Fluid Total Protein 1.6, Fluid LDH 76, Fluid Comment 2 SEE COMMENT 07/26/25 16:08: POC Glucose 169 H 07/26/25 21:12: POC Glucose 104 07/27/25 03:40: WBC 9.9, RBC 3.82 L, Hgb 10.6 L, Hct 33.9 L, MCV 88.7, MCH 27.7, MCHC 31.3 L, RDW Std Deviation 56.8 H, RDW Coeff of Jah 18.6 H, Plt Count 135 L, MPV 10.1, Immature Gran % (Auto) 0.600, Neut % (Auto) 78.6 H, Lymph % (Auto) 7.1 L, [place] % (Auto) 11.8 H, Eos % (Auto) 1.6, Baso % (Auto) 0.3, Absolute Neuts (auto) 7.8 H, Absolute Lymphs (auto) 0.70 L, Nucleated RBC % 0, Sodium 140, Potassium 3.7, Chloride 109 H, Carbon Dioxide 22.2, Anion Gap 8, BUN 42 H, C reatinine 1.58 H, Estim Creat Clear Calc 38.70 L, Est GFR (MDRD) Non-Af 39 L, B UN/Creatinine Ratio 26.3 H, Glucose 105 H, Calcium 8.4 07/27/25 06:31: POC Glucose 90 Micro: Microbiology 07/26/25 08:15 Mucosa - Nasopharyngeal Respiratory Panel (PCR) - Final Parainfluenza 4 07/26/25 14:05 Fluid - Thoracentesis Fluid Body Fluid Culture - Preliminary No growth-Final to follow 07/25/25 16:28 Urine, Catheterized Urine Culture - Preliminary Culture exhibits no growth. 07/26/25 09:40 Nasal Secretion MRSA (PCR) - Final 07/25/25 16:28 Urine, Random Legionella Antigen - Final 07/25/25 16:28 Urine, Random Streptococcus pneumoniae Antigen (M - Final 07/25/25 15:40 Mucosa - Nose SARS-CoV-2, Influenza & RSV (PCR) - Final Radiography Diagnostic Testing: Radiology Impression Thoracentesis Ultrasound 07/26/25 10:23 IMPRESSION: Successful ultrasound-guided left thoracentesis. The patient tolerated the procedure well. No immediate complication noted. Reading Location: [facility] Echocardiogram 07/26/25 10:32 Interpretation Summary The left ventricular ejection fraction is 50 %. Normal left ventricular thickness. Stage 2 diastolic dysfunction. Bioprosthetic tricuspid valve. Thickening of the septal prosthetic leaflet noted. No obvious vegetation present. Ordering Physician: Drew Goode Referring Physician: Mitchell Bowen chi Performed By: Joleen Walter, RDCS, RVT Chest X-Ray 07/26/25 13:45 IMPRESSION: Mild residual pleural-parenchymal changes at the left lung base. No evidence of pneumothorax. Reading Location: [place] [address] Rhythm Strip Rhythm Strip: Sinus Tach Rate: 119 Ectopy: None Physical Exam Const alert, oriented x3 and no apparent distress Constitutional Narrative: class III obesity General Appearance: cooperative Orientation / Consciousness: awake HEENT normocephalic, head/scalp atraumatic, moist oral mucous membranes and oropharynx normal Eyes PERRL, EOMs intact bilaterally and conjunctivae normal Neck supple, no JVD, thyroid normal and no carotid bruits General: trachea midline Lymph Lymphatic: no lymphedema noted Resp Resp Narrative: Mildly diminished breath sounds bibasilarly. No wheezes or crackles. On room air. Auscultation: Negative for rales, rhonchi or wheezes Cardio regular rhythm, S1 normal heart sound, S2 normal heart sound, no murmurs, no rub and no gallops Cardio Narrative: tachycardic GI normal to inspection, nondistended, normoactive bowel sounds, soft to palpation, non-tender and non-distended Extremity normal capillary refill and no clubbing, cyanosis or edema General Extremity: no tenderness to palpation of joints or extremities Skin no rashes or lesions noted General Skin Exam: no breakdown Neuro oriented x3, CN's II-XII intact bilaterally, moves all extremities and no focal motor deficits Sensorium / Orientation: awake and alert Speech: speech normal Motor Exam: general weakness Psych thought process normal, cooperative and affect normal Appearance: appropriate Assessment & Plan Assessment/Plan (1) Pneumonia: PLAN: Plan #Hypoxia due to probable pneumonia with associated pleural effusion and probably influenza infection * Patient has ESRD with history of renal transplant about 11 months ago. * Was admitted with a complaint of shortness of breath. WBC was elevated though it was thought to be due to recent use of steroids. * Currently being treated for hypoxia due to pneumonia. On broad-spectrum antibiotics. ID and pulmonology on board. * Respiratory panel actually came back positive for parainfluenza infection. Se had thoracentesis with removal of 470 mL of fluid from the left pleural space. Fluid gram stain and culture pending * Breathing treatments bronchodilators. Titrate oxygen to maintain saturation above 90%. * ID also recommends echo. Continue IV vancomycin and Zosyn * 2D echo showed EF of 50% with stage II diastolic dysfunction and mild global hypokinesis of the left ventricle) evidence of bioprosthetic tricuspid valve with thickening of the septal prosthetic leaflet noted but no obvious vegetations present * On p.o. Bumex * #ESRD: * S/p kidney transplant in 2019. Was done at . * Patient was actually accepted at but admitted here pending bed availability. * Nephrology on board. Continue immunosuppressant-mycophenolate and cyclosporine * #Ascites in the setting of history of cirrhosis: for diagnostic paracentesis today #History of tricuspid valve replacement: Currently on anticoagulants. Coumadin being resumed. Was held as she was getting thoracentesis. #History of heart failure preserved ejection fraction: On Bumex and Jardiance. On metoprolol #History of SLE: On hydroxychloroquine and p.o. steroids #Type 1 diabetes mellitus: On insulin pump. Also placed on ISS. Accuchecks ACHS #History of Sjogren syndrome: Stable #Depression: On venlafaxine #History of renal cell carcinoma s/p nephrectomy: Stable DVT prophylaxis: Coumadin being resumed after paracentesis today. Will monitor INR Disposition: Transfer to PCU today. Charges/Coding Visit Charges Inpatient E&M: 33541 Subs Hosp L2
--- NOTE | 2025-07-27 11:57 | CASEMGMT ---
Social Work- SW met with pt to complete SDOH. Pt provided with transportation resources, as pt reports that transportation is always an issue. Pt lives at home with brother who assists pt with any needs that arise. Pt also has [employer] 3x/week. Pt has a sister and friends for support as well. Pt plans to return home at d/c. Pt reports no other needs at this time. SW remains available to follow. ALISA Joy
[2025-07-27] MEDS: Lidocaine 2% (20 ml mdv) 20 ML Vial (12:14)
--- NOTE | 2025-07-27 12:16 | FLU_PTH ---
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 Mariza Finch MD : 1970 BED: 1 DIS: 07/28/2025 SPEC #: [id number] RECD: 07/27/25 12:44 STATUS: SOULalita REQ #: [id number] ISAIAH: 07/27/25 12:[address]: Mariza Finch DEPT: CYTOLOGY RECD BY: Jean Carlos Cabrera ENTERED: 07/27/25 13:42 SP TYPE: Fluid OTHR DR: MD Dr. Wesly De Paz DO Dr. Robert Leininger, MD Dr. Tai Chi Kwok, MD Tissues: A - PARACENTESIS FLUID Procedures: Special Stain Group II Surgery Specimen Level IV Cytospin Fluid HEADER OPERATION: Ultrasound guided paracentesis PRE-OP DIAGNOSIS: Ascites TISSUE SUBMITTED: A- Paracentesis fluid for cytology DIAGNOSIS CYTOLOGY A. Ascites, paracentesis (cytospin, cellblock): - Atypical cells, favor reactive mesothelial cells. CYTOLOGY STUDY Slides are reviewed. CYTOLOGY GROSS A. Received is 90 ml of [id number] fluid labeled with the patient's name and and designated per the requisition as Paracentesis fluid. Submitted for cytology and cell block preparation. Mr 07/27/2025 CPT: 69927,52094
[2025-07-27 13:39] LABS: Body Fluid Mononuclear WBC # 0.120 10^3/uL; Body Fluid Mononuclear WBC % 81.1 %; Body Fluid Polynuclear WBC # 0.028 10^3/uL; Body Fluid Polynuclear WBC % 18.9 %; Red Cell Count/Body Fluid 0.008 10^6/ul; White Blood Count/Body Fluid 0.148 10^3/uL
[2025-07-27 13:48] LABS: Auto B Fluid Analyzer BKGD Ct COUNTS W/IN LIMITS (W/IN LIMITS); Color/Body Fluid YELLOW; Source- Body Fluid PARACENTESIS
[2025-07-27 13:49] LABS: Appearance/Body Fluid CLOUDY
--- NOTE | 2025-07-27 14:58 | PN.ID_ITS ---
Physical Exam Narrative Feeling a little better, had paracentesis done, breathing easier. No fever. Const alert and no apparent distress General Appearance: cooperative ID ID: Route of nutrition/ use of supplements: [] Nutritional Intake: [] IV Site: [] Chester Catheter: []
--- NOTE | 2025-07-27 14:58 | PCM.PN.ID ---
Physical Exam Narrative Feeling a little better, had paracentesis done, breathing easier. No fever. Const alert and no apparent distress General Appearance: cooperative Resp normal air movement and clear to auscultation bilaterally Cardio regular rate and regular rhythm GI soft to palpation and non-tender GI Narrative: mild distension Extremity General Extremity: edema Skin no rashes or lesions noted ID ID: Route of nutrition/ use of supplements: [] Nutritional Intake: [] IV Site: [] Chester Catheter: [] Assessment & Plan Assessment/Plan (1) Pneumonia: PLAN: Resp pcr panel (+) parainfluenza. Covid/flu/rsv neg. H/o renal transplant 2019 at . Will order sputum cx. Urine antigens neg. Recent ucx 07/16 with klebs pneumo (R to amp, unasyn, macrobid). Elevated bili and BNP. Moderate ascites on ultrasound, last paracentesis was 2 weeks ago. Thoracentesis, echo, and paracentesis done. TTE showed Bioprosthetic tricuspid valve present with some thickening of septal leaflet but no veg seen. No fever here. Cont empiric vanc/zosyn. Will follow (2) Cirrhosis: (3) Status post kidney transplant:
[2025-07-27 15:13] LABS: Neutrophil (Segs) 17 %
[2025-07-27 15:14] LABS: Body Fluid QC Type(s) BF1
[2025-07-27] MEDS: Warfarin (PBKC) 3 MG Tablet PO (17:53)
[2025-07-27 19:55] LABS: Vancomycin, Trough Level 12.7 ug/mL (5.0-15.0)
--- NOTE | 2025-07-27 20:07 | PCM.RX.CS ---
Consult Antibiotic Management Pharmacy has been consulted to manage selected antibiotic: Vancomycin Type of Intervention Type of Consult: Follow-up Labs Labs: Sodium 140 mmol/L (133-145) 07/27/25 03:40 Potassium 3.7 mmol/L (3.3-5.1) 07/27/25 03:40 Chloride 109 mmol/L (98-108) H 07/27/25 03:40 Carbon Dioxide 22.2 mmol/L (21.0-32.0) 07/27/25 03:40 Anion Gap 8 (5-15) 07/27/25 03:40 BUN 42 mg/dL (4-19) H 07/27/25 03:40 Creatinine 1.58 mg/dL (0.70-1.20) H 07/27/25 03:40 Est GFR (MDRD) Non-Af 39 (>60) L 07/27/25 03:40 BUN/Creatinine Ratio 26.3 RATIO (10-20) H 07/27/25 03:40 Glucose 105 mg/dL (70-99) H 07/27/25 03:40 Vancomycin Trough 12.7 ug/mL (5.0-15.0) 07/27/25 19:13 Microbiology Microbiology: Microbiology 07/25/25 15:40 Blood Culture (Wb) - Arm Right Blood Culture - Preliminary No growth in 48 hours. 07/26/25 14:05 Fluid - Thoracentesis Fluid Gram Stain - Final 07/26/25 14:05 Fluid - Thoracentesis Fluid Body Fluid Culture - Preliminary No growth-Final to follow 07/26/25 08:15 Mucosa - Nasopharyngeal Respiratory Panel (PCR) - Final Parainfluenza 4 07/25/25 16:28 Urine, Catheterized Urine Culture - Preliminary Culture exhibits no growth. 07/26/25 09:40 Nasal Secretion MRSA (PCR) - Final 07/25/25 16:28 Urine, Random Legionella Antigen - Final 07/25/25 16:28 Urine, Random Streptococcus pneumoniae Antigen (M - Final 07/25/25 15:40 Mucosa - Nose SARS-CoV-2, Influenza & RSV (PCR) - Final Pharmacy Plan for Drug Dosing Pharmacy Plan for Drug Dosing: VANCOMYCIN LEVEL RECEIVED Current Vancomycin Dose: 1000MG Q24 Number of Doses Received: 2 Vancomycin Level: 12.7 mg/dL Hours Since Last Dose: 24.5 Renal Function: SCr 1.58 mg/dL, CrCl 38.7 mL/min Renal Function Trend: improving Lab/Micro: thoracentesis cx pending, urine cx no growth, blood cx no growth Vancomycin Plan/Comments: Nurse on PCU called around 1830 to let me know ot was ICU transfer so lab did not know they needed to draw trough so it will be late. 24.5 hour trough is subtherapeutic at 12.7 mg/dL (goal 15-20). Will increase dose to 1250mg Q24 (starting @ 2100) and get a level prior to the 3rd dose of new regimen. Pending Level: 07/29/25 @ 2030 Pharmacy Service will continue to monitor and adjust dosing as required.
[2025-07-27] MEDS: Vancomycin HCl 1,250 MG in 0.9% Normal Saline (250mL Bag) 250 ML 167 MG IV (21:37)
[2025-07-28 01:02] VITALS: BP 127/93; PULSE 103; RESP 16; TEMP 36.9; O2SAT 98
--- NOTE | 2025-07-28 03:57 | NURSING ---
Report Given To [facility] Nurse Jeniffer at 0100on 07/28
--- NOTE | 2025-07-28 08:59 | PCM.PN.REN ---
Subjective Subjective Bp better now Objective Data Objective Data Vital Signs: Vital Signs Temp Pulse Resp BP Pulse Ox O2 Del Method 98.4 F 103 H 16 127/93 H 98 Room Air 07/28/25 01:02 07/28/25 01:02 07/28/25 01:02 07/28/25 01:02 07/28/25 01:02 07/28/25 01:02 Oxygen Delivery Method Room Air Weight: 81.1 kg Body Mass Index (BMI) 43.1 Intake & Output: Intake and Output for Last 24 Hours 07/26/25 07/27/25 07/28/25 23:59 23:59 23:59 Intake Total 1710 / 1710 1420 / 1420 Output Total 870 / 870 1350 / 1350 Balance 840 / 840 70 / 70 Lab / Micro Data 07/27/25 03:40 07/27/25 03:40 Labs: Laboratory Results - last 24 hr 07/27/25 11:33: POC Glucose 134 H 07/27/25 12:16: Fluid Source PARACENTESIS, Fluid Color YELLOW, Fluid Appearance CLOUDY, Fluid WBC 0.148, Fluid RBC 0.008, Fluid Tot Cell Count 0.183 H, Fld Polynuclear WBCs # 0.028, Fld Polynuclear WBCs % 18.9, Fluid Mononuclear WBCs 0.120, Fld Mononuclear WBCs % 81.1, Fluid Neutrophils 17, Fluid Lymphocytes 48, Fluid Monocytes 31, Fld Mesothelial Cells 4, Fl Pathologist Comment May follow, Fluid Comment 2 SEE COMMENT 07/27/25 16:32: POC Glucose 190 H 07/27/25 19:13: Vancomycin Trough 12.7 07/27/25 23:27: POC Glucose 93 Micro: Microbiology 07/25/25 16:00 Blood Culture (Wb) - Arm Right Blood Culture - Preliminary No growth in 48 hours. 07/25/25 15:40 Blood Culture (Wb) - Arm Right Blood Culture - Preliminary No growth in 48 hours. 07/26/25 14:05 Fluid - Thoracentesis Fluid Gram Stain - Final 07/26/25 14:05 Fluid - Thoracentesis Fluid Body Fluid Culture - Preliminary No growth-Final to follow 07/26/25 08:15 Mucosa - Nasopharyngeal Respiratory Panel (PCR) - Final Parainfluenza 4 07/25/25 16:28 Urine, Catheterized Urine Culture - Preliminary Culture exhibits no growth. 07/26/25 09:40 Nasal Secretion MRSA (PCR) - Final 07/25/25 16:28 Urine, Random Legionella Antigen - Final 07/25/25 16:28 Urine, Random Streptococcus pneumoniae Antigen (M - Final 07/25/25 15:40 Mucosa - Nose SARS-CoV-2, Influenza & RSV (PCR) - Final Radiography Diagnostic Testing: Radiology Impression Paracentesis Ultrasound 07/26/25 10:27 IMPRESSION: Successful ultrasound-guided right paracentesis. The patient tolerated the procedure well. No immediate complication was noted. Reading Location: [place] [address] Rhythm Strip Rhythm Strip: Sinus Tach Rate: 119 Ectopy: None Physical Exam Narrative Alert and oriented, no apparent distress S1, S2, RRR Lungs sound clear anteriorly, diminished breath sounds posterior bases. No wheezes, rhonchi or rales. 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 Chest x-ray showed layering left-sided pleural effusion, chest CT small to moderate layering left pleural effusion, hepatic cirrhosis with small volume abdominal ascites, scattered ground glass opacities throughout right lung suggestive of atypical pneumonia. In ER lactic acid 1.2, CPK 445. Nephrology consulted as patient has history of ESRD status post donor kidney transplant 2019, CKD stage III. Yesterday creatinine 1.94 and today serum creatinine 1.75. Per patient she has good urine output. Overall renal function stable and serum creatinine appears near baseline, potassium and bicarb normal and volume status appears compensated. Continue immunosuppressants as ordered. Patient did have paracentesis (1.2 L removed) and thoracentesis (approximately 680 mL fluid removal) on July 07. Patient is on Bumex 1 mg daily. Patient is waiting for transfer to facility. Thank you for allowing us participate in the care of Ms. Plummer, further orders forthcoming as hospitalization evolves, assessment and plan reviewed with Dr. Taylor. 07/27/25. better. Bp improved. she is now PCU status. called and spoke to transplant nephrology at . updated about change in ICU to tele status. hopefully bed in next 24 hours. this is note for 07/27/25. late entry
[2025-07-30 15:08] LABS: Mycoplasma pneum. AB IgM < 770 U/mL (0-769)
[2025-08-01 09:04] LABS: Pathologist Comment/Body Fluid Reviewed
[2025-08-01 09:06] LABS: Pathologist Comment/Body Fluid Reviewed
--- NOTE | 2025-08-06 13:29 | DS.PCM_ITS ---
Providers Date of Admission: 07/25/25 Date of Discharge: 07/28/25 Primary Care Physician: Dr. Mitchell Bowen MD Consultations 07/25/25 22:01 Consult: Infectious Disease Routine Consulting Provider: Rigo Llamas Reason for Consult: ? sepsis/pneumonia EMERGENT Consult: No Notified: Yes Date Notified: 07/25/25 Time Notified: 07:43 Method of Notification: Answering Service Consult: Ball Machine Operator / Pulmonary Medicine Routine Consulting Provider: Intensivists/Pulmonary Med Reason for Consult: possible sepsis/pneumonia EMERGENT Consult: No Notified: Yes Date Notified: 07/26/25 Time Notified: 05:26 Method of Notification: Text Consult: Nephrology Routine Consulting Provider: Ministerio Taylor Reason for Consult: CKD EMERGENT Consult: No Notified: Yes Date Notified: 07/25/25 Time Notified: 08:13 Method of Notification: Answering Service Reason For Visit: SEPSIS, PNUEMONIA Diagnosis Discharge Diagnosis (1) Status post -donor kidney transplantation: Status: Acute Code(s): Z94.0 - Kidney transplant status (2) Chronic kidney disease, stage 3b: Status: Acute Code(s): N18.32 - Chronic kidney disease, stage 3b Plan #Hypoxia due to probable pneumonia with associated pleural effusion and probably influenza infection * Patient has ESRD with history of renal transplant about 11 months ago. * Was admitted with a complaint of shortness of breath. WBC was elevated though it was thought to be due to recent use of steroids. * Currently being treated for hypoxia due to pneumonia. On broad-spectrum antibiotics. ID and pulmonology on board. * Respiratory panel actually came back positive for parainfluenza infection. Se had thoracentesis with removal of 470 mL of fluid from the left pleural space. Fluid gram stain and culture pending * Breathing treatments bronchodilators. Titrate oxygen to maintain saturation above 90%. * ID also recommends echo. Continue IV vancomycin and Zosyn * 2D echo showed EF of 50% with stage II diastolic dysfunction and mild global hypokinesis of the left ventricle) evidence of bioprosthetic tricuspid valve with thickening of the septal prosthetic leaflet noted but no obvious vegetations present * On p.o. Bumex * #ESRD: * S/p kidney transplant in 2019. Was done at . * Patient was actually accepted at but admitted here pending bed availability. * Nephrology on board. Continue immunosuppressant-mycophenolate and cyclosporine * #Ascites in the setting of history of cirrhosis: for diagnostic paracentesis today #History of tricuspid valve replacement: Currently on anticoagulants. Coumadin being resumed. Was held as she was getting thoracentesis. #History of heart failure preserved ejection fraction: On Bumex and Jardiance. On metoprolol #History of SLE: On hydroxychloroquine and p.o. steroids #Type 1 diabetes mellitus: On insulin pump. Also placed on ISS. Accuchecks ACHS #History of Sjogren syndrome: Stable #Depression: On venlafaxine #History of renal cell carcinoma s/p nephrectomy: Stable DVT prophylaxis: Coumadin being resumed after paracentesis today. Will monitor INR Disposition: Transfer to PCU today. Medications at Discharge Home Medications prednisone 5 mg tablet 5 mg PO DAILY steroid for lupus 07/08/20 levocetirizine 5 mg tablet 5 mg PO DAILY ALLERGIES 07/17/20 blood sugar diagnostic #10 ea 11/04/20 lancets 33 gauge #100 ea 11/04/20 pregabalin 150 mg capsule 150 mg PO BID neuropathy 03/31/21 OneTouch Verio test strips (blood sugar diagnostic) #360 ea 04/17/21 hydroxychloroquine 200 mg tablet 200 mg PO DAILY antimalarial 07/08/21 acetaminophen 500 mg tablet 500 mg PO Q6H PRN pain/fever 11/25/21 ketoconazole 2 % shampoo 1 applic topical DAILY hair loss 01/04/22 desvenlafaxine succinate 100 mg tablet,extended release 24 hr 100 mg PO DAILY ANTIDEPRESSANT 02/19/22 Dexcom G6 Physical Therapist Assistant (blood-glucose,wellness program administrator,cont) #1 ea 03/04/22 cevimeline 30 mg capsule (Evoxac) 1 cap PO TID dry mouth 05/05/22 BD Ultra-Fine Mini Pen Needle 31 gauge x 3/16 (pen needle, diabetic) #100 ea 06/30/22 mycophenolate mofetil 250 mg capsule (CellCept) 500 mg PO BID anti rejection 03/04/23 mirtazapine 15 mg tablet 15 mg PO QHS sleep 03/05/23 alpha lipoic acid 600 mg capsule 600 mg PO DAILY neuropathy 02/17/24 bumetanide 1 mg tablet 1 mg PO .qd fluid retention 02/17/24 carvedilol 6.25 mg tablet 6.25 mg PO BID heart function 02/17/24 fluticasone propionate 50 mcg/actuation nasal spray,suspension (Flonase Allergy Relief) 1 spray intranasal DAILY PRN allergies 02/17/24 warfarin 3 mg tablet 3 mg PO DAILY heart valve 02/17/24 insulin pump cart,automated,BT (Omnipod 5 G6 Pods (Gen 5) subcutaneous cartridge) #45 ea 04/07/24 loperamide 2 mg capsule (Imodium A-D) 2 mg PO Q6H PRN diarrhea 05/29/24 empagliflozin 10 mg tablet (Jardiance) 10 mg PO QDAY diabetes 06/21/24 aspirin 81 mg tablet,delayed release 81 mg PO DAILY heart health 08/01/24 budesonide 1 mg/2 mL suspension for nebulization 1 mg irrigation TID chronic sinusitis 08/01/24 cyclosporine modified 25 mg capsule 25 mg PO Q12H antirejection 08/01/24 efinaconazole 10 % topical solution with applicator (Jugbarielaia) 1 applic topical .qd PRN nail fungus 08/01/24 ketorolac 0.5 % eye drops 1 drp LEFT EYE 4X/DAY allergies 08/01/24 diclofenac sodium 1 % topical gel 4.5 inch topical TID PRN JOINT PAIN 08/22/24 ipratropium 20 mcg-albuterol 100 mcg/actuation mist for inhalation (Combivent Respimat) 2 puff inhalation DAILY PRN wheezing 08/22/24 oxycodone 5 mg tablet 5 mg PO TID PRN PRN pain 08/22/24 sodium chloride 0.9 % irrigation solution 1 irrig irrigation TID chronic sinusitis 08/22/24 insulin pump cart,auto,BT,G6/7 (Omnipod 5 G6-G7 Pods (Gen 5) subcutaneous cartridge) #45 ea 09/25/24 blood sugar diagnostic (OneTouch Verio test strips) #100 ea 11/06/24 lancets 33 gauge #200 ea 11/07/24 Dexcom G6 Transmitter (blood-glucose transmitter) #1 ea 12/13/24 ferrous sulfate 325 mg (65 mg iron) tablet 325 mg PO BID 03/19/25 Dexcom G6 Sensor (blood-glucose sensor) #3 ea 06/13/25 Humalog U-100 Insulin 100 unit/mL subcutaneous solution (insulin lispro) 100 unit subcut DAILY diabetes #90 mL 06/13/25 metoprolol tartrate 50 mg tablet 50 mg PO BID 07/16/25 Hospital Course Operations None Procedures None Summary of Care Provided Minutes Spent on Discharge: 45 Hospital Course: Patient is a 54-year-old female with past medical history as outlined was admitted through the ED on 07/25/2025 with complaint of shortness of breath and fluid retention for several days prior to admission. She has a history of ESRD and had kidney transplant in 2019 and had a subsequent left nephrectomy at on account of renal cell cancer in 2023. On admission, workup was significant for creatinine of 1.94 and BUN of 51 with total bilirubin of 2.98 and AST of 48. CPK was 445 and initial troponin was 73. Repeat troponin after 2 hours was down to 59. proBNP was elevated at 20,051 and urinalysis was unremarkable. Chest x- ray showed cardiomegaly and a layering left-sided pleural effusion. Nephrology was contacted and they recommended that patient be transferred to where she had a transplant. She was accepted at but there was no bed available so she was admitted in the ICU to be managed for acute hypoxic respiratory failure due to possible pneumonia and left pleural effusion. Critical care was also consulted as well as infectious disease. She was placed on broad-spectrum antibiotics. She had 2D echo which showed EF of 50% and stage II diastolic dysfunction with mild global hypokinesis of the left ventricle. Echo showed evidence of bioprosthetic tricuspid valve and stage II diastolic dysfunction. She also tested positive for parainfluenza. She was placed on IV vancomycin and Zosyn. She also had left-sided thoracentesis with removal of 470 mL of fluid with fluid Gram stain and culture being negative. Patient also had ascites due to history of cirrhosis and she had paracentesis with removal of 1.22 L of fluid. She did get a bed at [facility] and was discharged to [facility] in the very early hours of 07/28/2025. Patient was seen on 07/27/2025 and examined. This hospitalist could not see patient on 07/28/2025 as she was discharged in the very early hours. Physical Exam Narrative not examined on 07/28/2025 as she left in the very early hours of the day when this hospitalist was not on service. Weight / BMI Weight Weight: 178 lb 12.718 oz Body Mass Index (BMI) 43.1 ABG / Lab / Microbiology Data 07/27/25 03:40 07/27/25 03:40 Microbiology: Microbiology 07/27/25 12:16 Fluid - Paracentesis (Abd) Gram Stain - Final 07/27/25 12:16 Fluid - Paracentesis (Abd) Body Fluid Culture - Final Culture exhibits no growth. 07/27/25 12:16 Fluid - Paracentesis (Abd) Anaerobic Culture - Final No growth in 5 days. 07/26/25 14:05 Fluid - Thoracentesis Fluid Gram Stain - Final 07/26/25 14:05 Fluid - Thoracentesis Fluid Body Fluid Culture - Final No growth aerobically. 07/26/25 14:05 Fluid - Thoracentesis Fluid Anaerobic Culture - Final No growth in 5 days. 07/25/25 15:40 Blood Culture (Wb) - Arm Right Blood Culture - Final No growth in 5 days. 07/25/25 16:00 Blood Culture (Wb) - Arm Right Blood Culture - Final No growth in 5 days. 07/25/25 16:28 Urine, Catheterized Urine Culture - Final Culture exhibits no growth. 07/26/25 08:15 Mucosa - Nasopharyngeal Respiratory Panel (PCR) - Final Parainfluenza 4 07/26/25 09:40 Nasal Secretion MRSA (PCR) - Final 07/25/25 16:28 Urine, Random Legionella Antigen - Final 07/25/25 16:28 Urine, Random Streptococcus pneumoniae Antigen (M - Final 07/25/25 15:40 Mucosa - Nose SARS-CoV-2, Influenza & RSV (PCR) - Final D/C Instructions DC O2, CPAP, BIPAP Needs Home O2 Discharge instructions: No Meaningful Use Info Meaningful Use Meaningful Use Diagnoses (Choose all that apply): None applicable Discharge Plan Admission Admit Date/Time: 07/25/25 19:26 Primary Reason for Your Visit: acute hypoxic respiratory failure, pneumonia, pleural effusion Attending Provider: Mariza Finch Primary Care Provider: Mitchell Bowen Chi Consulting Providers: Wesly Sorensen; Rigo Llamas; Ministerio Taylor Discharge Orders/Prescriptions Prescriptions: No Action (DME) blood sugar diagnostic Strip See Rx Instructions .ROUTE .MEDSUPPLY Qty: 10 Patient Comments: use 1 TEST STRIP to TEST BLOOD SUGAR daily Rx Instructions: As directed (DME) lancets 33 gauge misc See Rx Instructions .ROUTE .MEDSUPPLY Qty: 100 Patient Comments: use 1 LANCET to TEST BLOOD SUGAR daily Rx Instructions: As directed pregabalin 150 mg capsule 150 mg PO BID acetaminophen 500 mg tablet 500 mg PO Q6H PRN (Reason: pain/fever) mirtazapine 15 mg tablet 15 mg PO QHS Patient Comments: UNKNOWN DOSAGE CURRENTLY BEING TAKEN desvenlafaxine succinate 100 mg tablet extended release 24 hr 100 mg PO DAILY cevimeline [Evoxac] 30 mg capsule 1 cap PO TID mycophenolate mofetil [CellCept] 250 mg capsule 500 mg PO BID bumetanide 1 mg tablet 1 mg PO .qd Rx Instructions: Take 1 extra if a 3+ weight gain in a 24hr period, TAKE 2 MG IN AM AND 1MG IN PM carvedilol 6.25 mg tablet 6.25 mg PO BID warfarin 3 mg tablet 3 mg PO DAILY fluticasone propionate [Flonase Allergy Relief] 50 mcg/actuation spray,suspension 1 spray intranasal DAILY PRN (Reason: allergies) Rx Instructions: administer into each nostril Jardiance 10 mg tablet 10 mg PO QDAY (DME) OneTouch Verio test strips Strip See Rx Instructions .Route Qty: 100 5RF Rx Instructions: bid ferrous sulfate 325 mg (65 mg iron) tablet 325 mg PO BID metoprolol tartrate 50 mg tablet 50 mg PO BID hydroxychloroquine 200 mg tablet 200 mg PO DAILY Patient Comments: lupus prednisone 5 mg tablet 5 mg PO DAILY levocetirizine 5 MG tablet 5 mg PO DAILY ketoconazole 2 % Shampoo 1 applic TOPICAL DAILY alpha lipoic acid 600 mg capsule 600 mg PO DAILY loperamide [Imodium A-D] 2 mg capsule 2 mg PO Q6H PRN (Reason: diarrhea) cyclosporine modified 25 mg capsule 25 mg PO Q12H aspirin 81 mg tablet,delayed release (DR/EC) 81 mg PO DAILY ketorolac 0.5 % drops 1 drp LEFT EYE 4X/DAY budesonide 1 mg/2 mL suspension for nebulization 1 mg irrigation TID Patient Comments: [NO ORIGINAL SIG] Rx Instructions: pt. to instill into saline irrigation and irrigate nasal passages TID Jublia 10 % solution with applicator 1 applic topical .qd PRN (Reason: nail fungus) diclofenac sodium 1 % gel 4.5 inch topical TID PRN (Reason: JOINT PAIN) Combivent Respimat 20-100 mcg/actuation mist 2 puff inhalation DAILY PRN (Reason: wheezing) oxycodone 5 mg tablet 5 mg PO TID PRN PRN (Reason: pain) sodium chloride 0.9 % solution 1 irrig irrigation TID Patient Comments: [NO ORIGINAL SIG] (DME) OneTouch Verio test strips Strip See Rx Instructions .ROUTE .MEDSUPPLY Qty: 360 3RF Rx Instructions: As directed up to 4x daily to monitor glucose levels (DME) Dexcom G6 Physical Therapist Assistant Misc See Rx Instructions .Route Qty: 1 0RF Rx Instructions: As directed (DME) pen needle, diabetic [BD Ultra-Fine Mini Pen Needle] 31 gauge x 3/16 needle See Rx Instructions .ROUTE .MEDSUPPLY Qty: 100 3RF Rx Instructions: 3x/day (DME) Omnipod 5 G6 Pods (Gen 5) Cartridge See Rx Instructions .Route Qty: 45 1RF Rx Instructions: 1 pod q 48 hours (DME) Omnipod 5 G6-G7 Pods (Gen 5) Cartridge subcut Qty: 45 1RF Rx Instructions: change eveery 48 hours (DME) lancets 33 gauge misc See Rx Instructions .ROUTE .MEDSUPPLY Qty: 200 6RF Rx Instructions: 4x/day (DME) Dexcom G6 Transmitter Device See Rx Instructions .Route Qty: 1 1RF Rx Instructions: 1 q 90 days (DME) Dexcom G6 Sensor Device See Rx Instructions .Route Qty: 3 3RF Rx Instructions: 1 sensor q 10 days insulin lispro [Humalog U-100 Insulin] 100 unit/mL solution 100 unit subcut DAILY Qty: 90 1RF Patient Comments: 3 unit basal rate; for every 10 carbs PLUS sliding scale 3 units every 10 points of BG>130 Rx Instructions: via pump Referrals / Follow Up: Mitchell Bowen Chi, MD [Primary Care Provider, Geriatrics] Disposition Disposition (needs filled in before D/C Order can be placed): Acute Care Hospital Charges/Coding Visit Charges Inpatient E&M: 53447 Disch Hosp >30min
== END 2025-07-28 00:56 | disposition short-term general hospital (02) | DRG 193 ==
LOC: ED 18:04 → ICU 21:09 → PCU 07-27 17:12
PROVIDERS: Emergency Medicine; Internal Medicine Critical Care Medicine; Admitting Provider Internal Medicine; Emergency Provider Specialist/Technologist Athletic Trainer; PCP Family Medicine Geriatric Medicine; Visit Provider Student in an Organized Health Care Education/Training Program
DX: J12.2 Parainfluenza virus pneumonia (principal); J96.01 Acute respiratory failure with hypoxia; N18.6 End stage renal disease; I13.2 Hypertensive heart and chronic kidney disease with heart failure and with stage 5 chronic kidney disease, or end stage renal disease; I24.89 Other forms of acute ischemic heart disease; R18.8 Other ascites; J90 Pleural effusion, not elsewhere classified; I50.32 Chronic diastolic (congestive) heart failure; Z94.0 Kidney transplant status; K74.60 Unspecified cirrhosis of liver; E11.22 Type 2 diabetes mellitus with diabetic chronic kidney disease; M32.9 Systemic lupus erythematosus, unspecified; F32.A Depression, unspecified; Z95.2 Presence of prosthetic heart valve; Z79.4 Long term (current) use of insulin; G47.33 Obstructive sleep apnea (adult) (pediatric); Z79.899 Other long term (current) drug therapy; Z79.01 Long term (current) use of anticoagulants; R53.81 Other malaise; Z96.41 Presence of insulin pump (external) (internal); Z79.52 Long term (current) use of systemic steroids; Z79.84 Long term (current) use of oral hypoglycemic drugs; Z96.643 Presence of artificial hip joint, bilateral; R53.1 Weakness; Z90.5 Acquired absence of kidney; Z85.528 Personal history of other malignant neoplasm of kidney; Z99.89 Dependence on other enabling machines and devices; Z79.82 Long term (current) use of aspirin; Z79.620 Long term (current) use of immunosuppressive biologic; R74.8 Abnormal levels of other serum enzymes
CPT/HCPCS: 32555; 49083; 70450; 71045; 71046; 71250; 73502; 76705; 80048; 80053; 80076; 80202; 81001; 82140; 82550; 82945; 82962; 83605; 83615; 83690; 83880; 84155; 84157; 84484; 85025; 85610; 85730; 86738; 87040; 87070; 87075; 87086; 87205; 87449; 87631; 87633; 87641; 88108; 88305; 88313; 89050; 93005; 93306; 94640; 97162; 97166; 97802; 99285; P9612; A4216